=== PATIENT | female | born 1970 | race Caucasian/White ===

== ENCOUNTER 2018-05-23 07:37 | Emergency (ER) | payer MEDICARE ==
[2018-05-23] MEDS ORDERED: IPRATROPIUM-ALBUTEROL 3 ML NEB INHALATION STA (07:40)
[2018-05-23 07:46] VITALS: RESP 18; TEMP 98
[2018-05-23 08:11] LABS: Basophils # (A) 0.1 k/uL (0-0.2); Basophils % (A) 1 %; Eosinophils # (A) 0.4 k/uL (0-0.7); Eosinophils % (A) 3 %; HCT 37.4 % (34.0-46.0); HGB 11.9 gm/dL (11.4-16.0); Hypochromasia Slight; Lymphocytes # (A) 2.3 k/uL (1.0-4.8); Lymphocytes % (A) 21 %; MCH 26.6 pg (25.0-35.0); MCHC 31.9 g/dL (31.0-37.0); MCV 83.3 fL (80.0-100.0); Mean Platelet Volume 5.9; Monocytes # (A) 0.4 k/uL (0-1.0); Monocytes % (A) 4 %; Neutrophils # (A) 7.5 k/uL (1.3-7.7); Neutrophils % (A) 70 %; Platelet Count 650 k/uL (150-450); RBC 4.49 m/uL (3.80-5.40); RDW 15.4 % (11.5-15.5); WBC 10.7 k/uL (3.8-10.6)
[2018-05-23 08:14] LABS: ALT 33 U/L (9-52); AST 22 U/L (14-36); Albumin 3.9 g/dL (3.5-5.0); Alkaline Phosphatase 90 U/L (38-126); Anion Gap 12 mmol/L; Blood Urea Nitrogen 14 mg/dL (7-17); Calcium 9.1 mg/dL (8.4-10.2); Carbon Dioxide 21 mmol/L (22-30); Chloride 106 mmol/L (98-107); Glucose 180 mg/dL (74-99); INR 0.9 (<1.2); Magnesium 1.5 mg/dL (1.6-2.3); Partial Thromboplastin Time 24.1 sec (22.0-30.0); Potassium 4.4 mmol/L (3.5-5.1); Prothrombin Time 9.8 sec (9.0-12.0); Sodium 139 mmol/L (137-145); Total Bilirubin 0.4 mg/dL (0.2-1.3); Total Protein 6.9 g/dL (6.3-8.2)
--- NOTE | 2018-05-23 08:24 | ED ---
Chest Pain HPI - General Chief Complaint: Chest Pain Stated Complaint: Chest Pain Time Seen by Provider: 05/23/18 07:37 Source: patient, EMS, RN notes reviewed Mode of arrival: EMS Limitations: no limitations - History of Present Illness Initial Comments: This is a 47-year-old female who presents by EMS with complaints of chest pain she states it is midsternal and nonradiating. She's had a cough for 2 days she states the pain is now sharp 8/10 severity not associated with any fevers chills nausea vomiting sweats she does complain some shortness of breath. She is a one half pack a day smoker. She has no known history of heart or lung disease. She's had no phlegm production with cough nothing seems to make the pain worse nothing seems make the pain better she states. No trauma. No modifying factors. MD Complaint: chest pain - Related Data Previous Rx's Medication Instructions Recorded Albuterol Inhaler [Ventolin Hfa 2 puff INHALATION Q6HR PRN #1 05/23/18 Inhaler] inhaler Magnesium 200 mg PO DAILY #14 tablet 05/23/18 predniSONE 20 mg PO BID #10 tab 05/23/18 Allergies Allergy/AdvReac Type Severity Reaction Status Date / Time No Known Allergies Allergy Verified 05/23/18 08:05 Review of Systems ROS Statement: Those systems with pertinent positive or pertinent negative responses have been documented in the HPI. ROS Other: All systems not noted in ROS Statement are negative. EKG Findings - EKG Results: EKG: interpreted by ERMD, sinus rhythm (Sinus bradycardia rate of 58. Interval 146 QRS duration 80 QT since QTC 448/439 poor R-wave progression no acute ST-T wave changes) Past Medical History Additional Past Medical History / Comment(s): GERD, Chronic back pain History of Any Multi-Drug Resistant Organisms: None Reported Additional Past Surgical History / Comment(s): Open heart surgery for hole in heart at Smoking Status: Current every day smoker Past Alcohol Use History: None Reported Past Drug Use History: None Reported General Exam - General Exam Comments Initial Comments: This a well-developed well-nourished awake alert oriented 3 female Limitations: no limitations General appearance: alert, in no apparent distress, anxious Head exam: Present: atraumatic, normocephalic, normal inspection Eye exam: Present: normal appearance, PERRL, EOMI. Absent: scleral icterus, conjunctival injection, periorbital swelling ENT exam: Present: normal exam, mucous membranes moist Neck exam: Present: normal inspection. Absent: tenderness, meningismus, lymphadenopathy Respiratory exam: Present: chest wall tenderness (Producible tenderness palpation along the left costal sternal margin no step-off or crepitation.), accessory muscle use, decreased breath sounds. Absent: respiratory distress, wheezes, rales, rhonchi, stridor Cardiovascular Exam: Present: regular rate, normal rhythm, normal heart sounds. Absent: systolic murmur, diastolic murmur, rubs, gallop, clicks GI/Abdominal exam: Present: soft, normal bowel sounds. Absent: distended, tenderness, guarding, rebound, rigid Extremities exam: Present: normal inspection, full ROM, normal capillary refill. Absent: tenderness, pedal edema, joint swelling, calf tenderness Back exam: Present: normal inspection Neurological exam: Present: alert, oriented X3, CN II-XII intact Psychiatric exam: Present: normal affect, normal mood Skin exam: Present: warm, dry, intact, normal color. Absent: rash Course Vital Signs 05/23/18 05/23/18 05/23/18 07:39 09:16 09:22 Temperature 98.0 F Pulse Rate 63 63 60 Respiratory 18 18 Rate Blood Pressure 140/72 140/72 O2 Sat by Pulse 96 100 Oximetry 05/23/18 05/23/18 09:23 09:33 Temperature Pulse Rate 64 64 Respiratory 18 Rate Blood Pressure 161/71 O2 Sat by Pulse 99 Oximetry Procedures - Smoking Cessation Time Spent Discussing Smoking Cessation w/Patient (Minutes): 3 Patient Acknowledges Need for Cessation: Yes Chest Pain MDM - MDM Patient is feeling improved I did discuss the findings with her. She does not have an inhaler at home I did again emphasize that she needs to stop smoking. X -ray was negative for acute findings. The presentation consistent with costochondritis and bronchospasm. She will be placed on appropriate medications. Her magnesium level is 1.5 she'll also be placed on supplements. Disposition Clinical Impression: Costalchondritis, Chest wall syndrome, Bronchospasm, acute, Hypomagnesemia, Smoking Disposition: HOME SELF-CARE Condition: Good Instructions (If sedation given, give patient instructions): Costochondritis ( ED), Bronchospasm (ED), How to Stop Smoking (ED) Prescriptions: Albuterol Inhaler [Ventolin Hfa Inhaler] 2 puff INHALATION Q6HR PRN #1 inhaler PRN Reason: Dyspnea Magnesium 200 mg PO DAILY #14 tablet predniSONE 20 mg PO BID #10 tab Is patient prescribed a controlled substance at d/c from ED?: No Referrals: Guillermo Cerda MD [Primary Care Provider] - 1-2 days
--- NOTE | 2018-05-23 08:33 | XR ---
EXAMINATION TYPE: XR chest 2V DATE OF EXAM: 05/23/2018 COMPARISON: 12/26/2010 INDICATION: Chest pain, cough x2 weeks TECHNIQUE: Frontal and lateral views of the chest are obtained. FINDINGS: The heart size is normal. The pulmonary vasculature is normal. The lungs are clear. Sternotomy wires are in the midline. IMPRESSION: 1. No acute pulmonary process.
[2018-05-23 08:34] LABS: Creatine Kinase 39 U/L (30-135)
[2018-05-23 08:47] LABS: Creatine Kinase MB 0.5 ng/mL (0.0-2.4); Troponin I <0.012 ng/mL (0.000-0.034)
[2018-05-23] MEDS ORDERED: predniSONE 50 MG TAB PO STA (10:22)
[2018-05-23 10:50] VITALS: BP 148/78; PULSE 67
== END 2018-05-23 11:06 | disposition home or self-care (01) ==
LOC: EC 07:37
DX: M94.0 Chondrocostal junction syndrome [Tietze] (principal); J98.01 Acute bronchospasm; E83.42 Hypomagnesemia; I51.7 Cardiomegaly; F17.210 Nicotine dependence, cigarettes, uncomplicated; Z71.6 Tobacco abuse counseling
CPT/HCPCS: 99285; 36415; 94640; 93005; 83880; 80053; 82550; 82553; 83735; 84484; 85025; 85610; 85730; 71046; J7512

== ENCOUNTER 2018-08-23 17:47 | Emergency (ER) | payer MEDICARE ==
--- NOTE | 2018-08-23 18:27 | ED ---
Abdominal Pain HPI - General Chief Complaint: Abdominal Pain Stated Complaint: Abd Pain Source: patient Mode of arrival: ambulatory Limitations: no limitations - History of Present Illness Initial Comments: 47-year-old female presenting today for chief complaint of midabdominal pain. She states the past 2 days she has had midabdominal pain she states is crampy in nature she states she has had some not nausea. She denies radiation of the pain she denies any chest pain or shortness of breath shows a leg swelling. She has any melena or hematochezia. She denies diarrhea. Patient denies constipation she states she took Motrin but this did not help the pain. Patient denies any pattern with the patient denies any alleviating or aggravating factors. Patient has dysuria urgency frequency vaginal bleeding vaginal discharge or lower pelvic pain. Remaining review of systems negative upon arrival patient appears well no signs of acute distress. No signs of protective posturing or discomfort. Patient arrived via EMS. - Related Data Previous Rx's Medication Instructions Recorded Albuterol Inhaler [Ventolin Hfa 2 puff INHALATION Q6HR PRN #1 05/23/18 Inhaler] inhaler Magnesium 200 mg PO DAILY #14 tablet 05/23/18 predniSONE 20 mg PO BID #10 tab 05/23/18 Allergies Allergy/AdvReac Type Severity Reaction Status Date / Time No Known Allergies Allergy Verified 08/23/18 18:07 Review of Systems ROS Statement: Those systems with pertinent positive or pertinent negative responses have been documented in the HPI. ROS Other: All systems not noted in ROS Statement are negative. Past Medical History Past Medical History: No Reported History Additional Past Medical History / Comment(s): GERD, Chronic back pain History of Any Multi-Drug Resistant Organisms: None Reported Additional Past Surgical History / Comment(s): Open heart surgery for hole in heart at Past Psychological History: No Psychological Hx Reported Smoking Status: Current every day smoker Past Alcohol Use History: None Reported Past Drug Use History: None Reported General Exam - General Exam Comments Initial Comments: General: The patient is awake and alert, in no distress, and does not appear acutely ill. Eye: Pupils are equal, round and reactive to light, extra-ocular movements are intact. No nystagmus. There is normal conjunctiva bilaterally. No signs of icterus. Ears, nose, mouth and throat: There are moist mucous membranes and no oral lesions. Neck: The neck is supple, there is no tenderness or JVD. Cardiovascular: There is a regular rate and rhythm. No murmur, rub or gallop is appreciated. Respiratory: Lungs are clear to auscultation, respirations are non-labored, breath sounds are equal. No wheezes, stridor, rales, or rhonchi. Gastrointestinal: Soft, non-distended, tender to mid abdomen mildly without masses or organomegaly noted. There is no rebound or guarding present. No CVA tenderness. Bowel sounds are unremarkable. Musculoskeletal: Normal ROM, no tenderness. Strength 5/5. Sensation intact. Pulses equal bilaterally 2+. Neurological: A&O x 3. CN II-XII intact, There are no obvious motor or sensory deficits. Coordination appears grossly intact. Speech is normal. Skin: Skin is warm and dry and no rashes or lesions are noted. Psychiatric: Cooperative, appropriate mood & affect, normal judgment. Limitations: no limitations Course Vital Signs 08/23/18 08/23/18 08/23/18 17:50 20:13 21:23 Temperature 98.4 F 98.6 F Pulse Rate 68 57 L 63 Respiratory 16 16 18 Rate Blood Pressure 156/92 150/80 141/88 O2 Sat by Pulse 96 97 98 Oximetry - Reevaluation(s) Reevaluation #1: On reevaluation patient's pain is 0 out of 10 and she states she is ready to go she has her belongings collected. 08/23/18 20:45 Medical Decision Making - Medical Decision Making 47-year-old female presenting today for chief complaint of abdominal pain. Patient states is in the mid abdomen near the umbilicus. Patient states it is crampy. This has been constant for the past 24 hours. Patient denies any diarrhea vomiting she states she has had some nausea. She denies any epigastric pain chest pain or shortness of breath. Patient is minimal tenderness on examination CT negative for acute process. Possible movement of patient's tubal ligation clips. Patient has no pelvic pain on examination. Denies any vaginal bleeding or lower abdominal pain. She was provided 2 mg of morphine, she states she complete resolution of symptoms upon reexamination. Patient had things collected and states she was ready to go home. After discussing laboratory studies which included leukocytosis very mild, mild elevated of AST and a nonclean catch urine. Will culture. After discussed the case with him provided Raffi will discharge patient home, with outpatient primary care follow-up. Return parameters were discussed with patient who verbalized understanding. - Lab Data Result diagrams: 08/23/18 18:13 08/23/18 18:13 Lab Results 08/23/18 08/23/18 08/23/18 Range/Units 18:13 18:13 18:13 WBC 13.7 H (3.8-10.6) k/uL RBC 4.83 (3.80-5.40) m/uL Hgb 12.0 (11.4-16.0) gm/dL Hct 38.7 (34.0-46.0) % MCV 80.2 (80.0-100.0) fL MCH 24.9 L (25.0-35.0) pg MCHC 31.0 (31.0-37.0) g/dL RDW 16.6 H (11.5-15.5) % Plt Count 609 H (150-450) k/uL Neutrophils % 69 % Lymphocytes % 22 % Monocytes % 6 % Eosinophils % 2 % Basophils % 1 % Neutrophils # 9.4 H (1.3-7.7) k/uL Lymphocytes # 2.9 (1.0-4.8) k/uL Monocytes # 0.8 (0-1.0) k/uL Eosinophils # 0.3 (0-0.7) k/uL Basophils # 0.1 (0-0.2) k/uL Anisocytosis Slight Microcytosis Slight Sodium 139 (137-145) mmol/L Potassium 4.7 (3.5-5.1) mmol/L Chloride 106 (98-107) mmol/L Carbon Dioxide 24 (22-30) mmol/L Anion Gap 9 mmol/L BUN 14 (7-17) mg/dL Creatinine 0.60 (0.52-1.04) mg/dL Est GFR (CKD-EPI)AfAm >90 (>60 ml/min/1.73 sqM) Est GFR (CKD-EPI)NonAf >90 (>60 ml/min/1.73 sqM) Glucose 102 H (74-99) mg/dL Calcium 9.4 (8.4-10.2) mg/dL Total Bilirubin 0.3 (0.2-1.3) mg/dL AST 50 H (14-36) U/L ALT 41 (9-52) U/L Alkaline Phosphatase 85 (38-126) U/L Total Protein 7.0 (6.3-8.2) g/dL Albumin 3.9 (3.5-5.0) g/dL Amylase 53 (30-110) U/L Lipase 259 (23-300) U/L Urine Color Light Yellow Urine Appearance Cloudy H (Clear) Urine pH 5.5 (5.0-8.0) Ur Specific Whittaker 1.023 (1.001-1.035) Urine Protein 1+ H (Negative) Urine Glucose (UA) Negative (Negative) Urine Ketones Negative (Negative) Urine Blood Negative (Negative) Urine Nitrite Negative (Negative) Urine Bilirubin Negative (Negative) Urine Urobilinogen <2.0 (<2.0) mg/dL Ur Leukocyte Esterase Small H (Negative) Urine RBC <1 (0-5) /hpf Urine WBC 4 (0-5) /hpf Ur Squamous Epith Cells 7 H (0-4) /hpf Urine Mucus Rare H (None) /hpf Disposition Clinical Impression: Abdominal pain Disposition: HOME SELF-CARE Condition: Good Instructions (If sedation given, give patient instructions): Abdominal Pain (ED) Additional Instructions: Please use medication as discussed. Please follow-up with family doctor in the next 2 days of symptoms have not improved. Please follow-up with primary care provider for pulmonary nodule, 4mm. Please return to emergency room if the symptoms increase or worsen or for any other concerns. Is patient prescribed a controlled substance at d/c from ED?: No Referrals: Guillermo Cerda MD [Primary Care Provider] - 1-2 days Time of Disposition: 20:45
--- NOTE | 2018-08-23 19:16 | CT ---
EXAMINATION TYPE: CT abdomen pelvis w con DATE OF EXAM: 08/23/2018 HISTORY: Abdominal pain x [address] DLP: 1470.7mGycm Automated Exposure Control for Dose Reduction was Utilized. CONTRAST: CT scan of the abdomen and pelvis is performed with IV Contrast, patient injected with 100 mL of Isov ue 300. COMPARISON: None. FINDINGS: LUNG BASES: There is a 4 mm solid pulmonary nodule in the right lower lobe on image 3. LIVER/GB: Hepatic parenchyma is diffusely hypoattenuated in comparison to that of the spleen, most co mmonly seen in hepatic steatosis. This finding limits evaluation for hepatic masses. No gross evidenc e of hepatic mass is seen. No intrahepatic biliary ductal dilatation. No cholelithiasis PANCREAS: No significant abnormality is seen. SPLEEN: No significant abnormality is seen. ADRENALS: No significant abnormality is seen. KIDNEYS: There is a lobulated Contour the kidneys that may represent persistent lobulation or s equela of prior multifocal injury. Too small to accurately characterize left renal lesion does not me eting criteria of a simple cyst and measures 9 mm. No hydronephrosis of either kidney. BOWEL: Small hiatal hernia seen. Appendix is air-filled and within normal limits. No dilated large or small bowel is seen. Very small fat filled periumbilical hernia is noted. Few scattered sigmoid dive rticula are present without pericolonic fat stranding. UTERUS/ADNEXA: Surgical clips are seen within the left hemipelvis. These have the appearance of tubal ligation clips although are not contiguous with the fallopian tubes. LYMPH NODES: No greater than 1cm abdominal or pelvic lymph nodes are appreciated. OSSEOUS STRUCTURES: No significant abnormality is seen. IMPRESSION: 1. No CT evidence to correspond to this patient's abdominal pain. Incidentally noted hiatal hernia, h epatic steatosis, and too small to accurately characterize left lower pole renal lesion. 2. Surgical clips lie within the left hemipelvis having the appearance of tubal ligation clips althou gh these are not contiguous with the fallopian tubes and may be displaced. Correlate with prior surgi branden history.
[2018-08-23 19:19] LABS: Anisocytosis Slight; Basophils # (A) 0.1 k/uL (0-0.2); Basophils % (A) 1 %; Eosinophils # (A) 0.3 k/uL (0-0.7); Eosinophils % (A) 2 %; HCT 38.7 % (34.0-46.0); Lymphocytes # (A) 2.9 k/uL (1.0-4.8); Lymphocytes % (A) 22 %; MCH 24.9 pg (25.0-35.0); MCV 80.2 fL (80.0-100.0); Mean Platelet Volume 6.7; Microcytosis Slight; Monocytes # (A) 0.8 k/uL (0-1.0); Monocytes % (A) 6 %; Neutrophils # (A) 9.4 k/uL (1.3-7.7); Neutrophils % (A) 69 %; Platelet Count 609 k/uL (150-450); RBC 4.83 m/uL (3.80-5.40); RDW 16.6 % (11.5-15.5); WBC 13.7 k/uL (3.8-10.6)
[2018-08-23 19:28] LABS: ALT 41 U/L (9-52); AST 50 U/L (14-36); Albumin 3.9 g/dL (3.5-5.0); Alkaline Phosphatase 85 U/L (38-126); Amylase 53 U/L (30-110); Anion Gap 9 mmol/L; Blood Urea Nitrogen 14 mg/dL (7-17); Calcium 9.4 mg/dL (8.4-10.2); Carbon Dioxide 24 mmol/L (22-30); Chloride 106 mmol/L (98-107); Glucose 102 mg/dL (74-99); Lipase 259 U/L (23-300); Potassium 4.7 mmol/L (3.5-5.1); Sodium 139 mmol/L (137-145); Total Bilirubin 0.3 mg/dL (0.2-1.3)
[2018-08-23 19:29] LABS: Appearance,Urine Cloudy (Clear); Bilirubin,Urine Negative (Negative); Blood,Urine Negative (Negative); Color,Urine Light Yellow; Glucose,Urine (UA) Negative (Negative); Ketones,Urine Negative (Negative); Leukocyte Esterase,Urine Small (Negative); Mucus,Urine Rare /hpf; Nitrite,Urine Negative (Negative); PH, Urine 5.5 (5.0-8.0); Protein,Urine 1+ (Negative); RBC,Urine <1 /hpf (0-5); Specific Gravity,Urine 1.023 (1.001-1.035); Squamous Epithelial Cell,Urine 7 /hpf (0-4); Urobilinogen,Urine <2.0 mg/dL (<2.0); WBC,Urine 4 /hpf (0-5)
[2018-08-23] MEDS ORDERED: MORPHINE SULFATE 2 MG/ML SYRINGE IVP STA (20:05)
[2018-08-23 20:15] VITALS: TEMP 98.6
[2018-08-23 21:24] VITALS: BP 141/88; PULSE 63; RESP 18
== END 2018-08-23 21:25 | disposition home or self-care (01) ==
LOC: EC 17:47
DX: R10.9 Unspecified abdominal pain (principal); R30.0 Dysuria; R35.0 Frequency of micturition; F17.200 Nicotine dependence, unspecified, uncomplicated
CPT/HCPCS: 36415; 80053; 82150; 83690; 85025; 81001; 74177; 99284; 96374; J2270; Q9967

== ENCOUNTER 2018-09-16 01:52 | Emergency (ER) | payer MEDICARE ==
[2018-09-16 01:59] VITALS: RESP 18
[2018-09-16] MEDS ORDERED: SODIUM CHLORIDE 0.9% 1,000 ML IV STA (02:25)
--- NOTE | 2018-09-16 02:25 | ED ---
Chest Pain HPI - General Chief Complaint: Chest Pain Stated Complaint: Chest pain Time Seen by Provider: 09/16/18 02:24 Source: patient, EMS Mode of arrival: EMS Limitations: no limitations - History of Present Illness Initial Comments: Dayna is a cognitively delayed 48-year-old female who presents to the emergency department today for evaluation of chest pain for 3 days duration. Patient reports that when she lays on her left or right side she has tenderness around her sternum. She reports that if she lays flat on her back she does not have any symptoms. Patient reports that because of that she's not been able to sleep well and she feels that she's been sleep deprived. Patient reports that tonight she couldn't sleep so she contacted EMS for transport to the hospital. Patient denies any exertional chest pain, palpitations, shortness of breath. Patient denies any cardiac history. She reports that the discomfort has been constant for 3 days but is worse with certain positions or palpation. She denies any injury trauma or heavy lifting. She reports that she doesn't work and she spends all day watching TV. - Related Data Previous Rx's Medication Instructions Recorded Albuterol Inhaler [Ventolin Hfa 2 puff INHALATION Q6HR PRN #1 05/23/18 Inhaler] inhaler Magnesium 200 mg PO DAILY #14 tablet 05/23/18 predniSONE 20 mg PO BID #10 tab 05/23/18 Allergies Allergy/AdvReac Type Severity Reaction Status Date / Time No Known Allergies Allergy Verified 08/23/18 18:07 Review of Systems ROS Statement: Those systems with pertinent positive or pertinent negative responses have been documented in the HPI. ROS Other: All systems not noted in ROS Statement are negative. EKG Findings - EKG Comments: EKG Findings:: EKG was obtained at 2:01 AM for evaluation of chest pain, EKG with a rate of 63 rhythm sinus tach normal axis there are normal intervals, MT 162, QRS 80, QTC is 421 there are no acute ST elevations or depressions there is no evidence of acute infarction or ischemia. Past Medical History Past Medical History: No Reported History Additional Past Medical History / Comment(s): GERD, Chronic back pain History of Any Multi-Drug Resistant Organisms: None Reported Additional Past Surgical History / Comment(s): Open heart surgery for hole in heart at Past Psychological History: No Psychological Hx Reported Smoking Status: Former smoker Past Alcohol Use History: None Reported Past Drug Use History: None Reported General Exam - General Exam Comments Initial Comments: Physical Exam GENERAL: Patient is well-developed and well-nourished. Patient is nontoxic and well- hydrated and is in no distress. Morbidly obese HENT: Normocephalic, Atraumatic. EYES: PERRL, EOMI PULMONARY: Unlabored respirations. No audible rales rhonchi or wheezing was noted. CARDIOVASCULAR: There is a regular rate and rhythm without any murmurs gallops or rubs. Tenderness to palpation in the costochondral junction ABDOMEN: Soft and nontender with normal bowel sounds. SKIN: Skin is clear with no lesions or rashes and otherwise unremarkable. : Deferred NEUROLOGIC: Patient is alert and oriented x3. Moving all extremities spontaneously MUSCULOSKELETAL: Normal extremities with adequate strength and full range of motion. No lower extremity swelling or edema. No calf tenderness. PSYCHIATRIC: Childlike demeanor Limitations: no limitations Course Vital Signs 09/16/18 01:54 Temperature 99.4 F Pulse Rate 88 Respiratory 18 Rate Blood Pressure 147/83 O2 Sat by Pulse 98 Oximetry Chest Pain [facility] The patient was seen and evaluated, history is obtained from the patient and EMS This is a 48-year-old female who presents today for evaluation of musculoskeletal chest pain has been keeping her from sleep. Patient states she usually sleeps on her side so she has discomfort any time she sleeps on either side so she's been having asleep in her back which is uncomfortable for her. She reports overnight she hasn't been able to sleep properly tonight she couldn't sleep so she came to the ER for evaluation. EKG is nonischemic, symptoms of been persistent for 3 days and troponin is negative. This time I felt comfortable with the plan for discharge home. Patient has no tachycardia, shortness of breath or hypoxia. She is ambulatory with no recent immobilization and no concern for DVT or PE. Disposition Clinical Impression: Musculoskeletal chest pain Disposition: HOME SELF-CARE Condition: Stable Instructions (If sedation given, give patient instructions): Costochondritis (ED) Is patient prescribed a controlled substance at d/c from ED?: No Referrals: Guillermo Cerda MD [Primary Care Provider] - 1-2 days
[2018-09-16 02:28] LABS: Anisocytosis Slight; Basophils % (A) 0 %; Eosinophils # (A) 0.3 k/uL (0-0.7); Eosinophils % (A) 2 %; HCT 35.5 % (34.0-46.0); HGB 11.1 gm/dL (11.4-16.0); Hypochromasia Slight; Lymphocytes # (A) 2.8 k/uL (1.0-4.8); Lymphocytes % (A) 22 %; MCH 24.6 pg (25.0-35.0); MCHC 31.2 g/dL (31.0-37.0); MCV 78.7 fL (80.0-100.0); Mean Platelet Volume 6.9; Microcytosis Slight; Monocytes # (A) 0.5 k/uL (0-1.0); Monocytes % (A) 4 %; Neutrophils % (A) 71 %; Platelet Count 984 k/uL (150-450); RBC 4.51 m/uL (3.80-5.40); RDW 16.7 % (11.5-15.5); WBC 12.7 k/uL (3.8-10.6)
--- NOTE | 2018-09-16 02:34 | XR ---
EXAM: XR Chest, 2 Views CLINICAL HISTORY: Chest Pain TECHNIQUE: Frontal and lateral views of the chest. COMPARISON: 05/23/2018 FINDINGS: Lungs: Unremarkable. No consolidation. Pleural space: Unremarkable. No pneumothorax. Heart: Unremarkable. No cardiomegaly. Mediastinum: Unremarkable. Bones/joints: No acute osseous abnormality. IMPRESSION: No acute cardiopulmonary process.
[2018-09-16 02:38] LABS: ALT 32 U/L (9-52); AST 43 U/L (14-36); African American GFR (CKD) >90 (>60 ml/min/1.73 sqM); Albumin 3.6 g/dL (3.5-5.0); Alkaline Phosphatase 121 U/L (38-126); Anion Gap 9 mmol/L; Blood Urea Nitrogen 17 mg/dL (7-17); Carbon Dioxide 28 mmol/L (22-30); Chloride 102 mmol/L (98-107); Glucose 161 mg/dL (74-99); Magnesium 1.8 mg/dL (1.6-2.3); Potassium 4.8 mmol/L (3.5-5.1); Sodium 139 mmol/L (137-145); Total Bilirubin 0.3 mg/dL (0.2-1.3); Total Protein 7.2 g/dL (6.3-8.2)
[2018-09-16 02:55] LABS: Partial Thromboplastin Time 25.1 sec (22.0-30.0); Prothrombin Time 10.3 sec (9.0-12.0)
[2018-09-16 04:06] VITALS: BP 139/70; PULSE 60; TEMP 98.8
== END 2018-09-16 04:06 | disposition home or self-care (01) ==
LOC: EC 01:52
DX: R07.9 Chest pain, unspecified (principal); G31.84 Mild cognitive impairment of uncertain or unknown etiology; Z87.891 Personal history of nicotine dependence; Z98.890 Other specified postprocedural states; Z72.820 Sleep deprivation
CPT/HCPCS: 36415; 71046; 80053; 83735; 84484; 85025; 85610; 85730; 93005; 96360; 99285

== ENCOUNTER 2018-10-14 12:31 | Emergency (ER) | payer MEDICARE ==
[2018-10-14] MEDS ORDERED: SODIUM CHLORIDE 0.9% 1,000 ML IV STA ×2 (12:36→13:35)
[2018-10-14 12:37] VITALS: RESP 18; TEMP 98.6
--- NOTE | 2018-10-14 12:41 | ED ---
Weakness HPI - General Chief complaint: Dizziness Stated complaint: Dizziness Time Seen by Provider: 10/14/18 12:35 Source: patient, EMS, RN notes reviewed, old records reviewed Mode of arrival: EMS Limitations: no limitations - History of Present Illness Initial comments: This is a 48 showed female the ER for evaluation. Patient has a for evaluation of weakness weakness and dizziness 5 weeks. Patient is recent travel history no sick contacts, no chest pain shortness breath or abdominal pain recent change in medications. No travel history. Denies drugs or alcohol MD Complaint: generalized weakness -: days(s) Location: generalized Severity: moderate Severity scale (1-10): 3 Quality: aching Consistency: constant Improves with: none Worsens with: none Context: new medication Associated Symptoms: denies other symptoms - Related Data Home Medications Medication Instructions Recorded Confirmed Atorvastatin Calcium [Lipitor] 40 mg PO HS 10/14/18 10/14/18 Ergocalciferol (Vitamin D2) 50,000 unit PO Q28H 10/14/18 10/14/18 [Vitamin D2] Esomeprazole Magnesium [NexIUM] 40 mg PO DAILY 10/14/18 10/14/18 Ibuprofen [Motrin] 800 mg PO TID PRN 10/14/18 10/14/18 Allergies Allergy/AdvReac Type Severity Reaction Status Date / Time No Known Allergies Allergy Verified 10/14/18 12:56 Review of Systems ROS Statement: Those systems with pertinent positive or pertinent negative responses have been documented in the HPI. ROS Other: All systems not noted in ROS Statement are negative. Past Medical History Past Medical History: No Reported History Additional Past Medical History / Comment(s): GERD, Chronic back pain History of Any Multi-Drug Resistant Organisms: None Reported Past Surgical History: Tubal Ligation Additional Past Surgical History / Comment(s): Open heart surgery for hole in heart at Past Psychological History: No Psychological Hx Reported Smoking Status: Current every day smoker Past Alcohol Use History: None Reported Past Drug Use History: None Reported General Exam Limitations: no limitations General appearance: alert, in no apparent distress Head exam: Present: atraumatic, normocephalic, normal inspection Eye exam: Present: normal appearance, PERRL, EOMI. Absent: scleral icterus, conjunctival injection, periorbital swelling ENT exam: Present: normal exam, mucous membranes moist Neck exam: Present: normal inspection. Absent: tenderness, meningismus, lymphadenopathy Respiratory exam: Present: normal lung sounds bilaterally. Absent: respiratory distress, wheezes, rales, rhonchi, stridor Cardiovascular Exam: Present: regular rate, normal rhythm, normal heart sounds. Absent: systolic murmur, diastolic murmur, rubs, gallop, clicks GI/Abdominal exam: Present: soft, normal bowel sounds. Absent: distended, tenderness, guarding, rebound, rigid Extremities exam: Present: normal inspection, full ROM, normal capillary refill. Absent: tenderness, pedal edema, joint swelling, calf tenderness Back exam: Present: normal inspection Neurological exam: Present: alert, oriented X3, CN II-XII intact Psychiatric exam: Present: normal affect, normal mood Skin exam: Present: warm, dry, intact, normal color. Absent: rash Course Vital Signs 10/14/18 10/14/18 10/14/18 12:32 12:48 14:13 Temperature 98.6 F Pulse Rate 79 78 Pulse Rate [ 87 Sitting] Pulse Rate [ 90 Standing] Pulse Rate [ 81 Supine] Respiratory 18 18 Rate Blood Pressure 149/97 138/76 Blood Pressure 138/93 [Sitting] Blood Pressure 134/90 [Standing] Blood Pressure 149/85 [Supine] O2 Sat by Pulse 96 100 Oximetry - Reevaluation(s) Reevaluation #1: 10/14/18 12:41 Medical record is reviewed EKG Findings - EKG Comments: EKG Findings:: EKG shows sinus rhythm rate of 80, GA 132, QRS 76, QTc 445 Medical Decision Making - Medical Decision Making 48 female the ER for evaluation. Patient resents today for evaluation of not feeling well for about 5 days. Patient does have dehydration with urinary tract infection. We'll treat her with antibiotics and outpatient basis and encouraged increased oral intake - Lab Data Result diagrams: 10/14/18 12:41 10/14/18 12:41 Lab Results 10/14/18 10/14/18 10/14/18 Range/Units 12:41 12:41 12:41 WBC 11.1 H (3.8-10.6) k/uL RBC 5.12 (3.80-5.40) m/uL Hgb 12.6 (11.4-16.0) gm/dL Hct 40.5 (34.0-46.0) % MCV 79.2 L (80.0-100.0) fL MCH 24.6 L (25.0-35.0) pg MCHC 31.1 (31.0-37.0) g/dL RDW 17.4 H (11.5-15.5) % Plt Count 613 H (150-450) k/uL Neutrophils % 70 % Lymphocytes % 22 % Monocytes % 4 % Eosinophils % 2 % Basophils % 1 % Neutrophils # 7.8 H (1.3-7.7) k/uL Lymphocytes # 2.4 (1.0-4.8) k/uL Monocytes # 0.4 (0-1.0) k/uL Eosinophils # 0.2 (0-0.7) k/uL Basophils # 0.1 (0-0.2) k/uL Anisocytosis Slight Microcytosis Slight PT (9.0-12.0) sec INR (<1.2) APTT (22.0-30.0) sec Sodium 140 (137-145) mmol/L Potassium 4.4 (3.5-5.1) mmol/L Chloride 102 (98-107) mmol/L Carbon Dioxide 21 L (22-30) mmol/L Anion Gap 17 mmol/L BUN 29 H (7-17) mg/dL Creatinine 0.85 (0.52-1.04) mg/dL Est GFR (CKD-EPI)AfAm >90 (>60 ml/min/1.73 sqM) Est GFR (CKD-EPI)NonAf 83 (>60 ml/min/1.73 sqM) Glucose 193 H (74-99) mg/dL Plasma Lactic Acid Travon 3.6 H* (0.7-2.0) mmol/L Calcium 9.7 (8.4-10.2) mg/dL Phosphorus 4.6 H (2.5-4.5) mg/dL Magnesium 1.6 (1.6-2.3) mg/dL Total Bilirubin 0.5 (0.2-1.3) mg/dL AST 35 (14-36) U/L ALT 30 (9-52) U/L Alkaline Phosphatase 105 (38-126) U/L Creatine Kinase 39 (30-135) U/L Troponin I (0.000-0.034) ng/mL Total Protein 8.1 (6.3-8.2) g/dL Albumin 4.4 (3.5-5.0) g/dL Urine Color Urine Appearance (Clear) Urine pH (5.0-8.0) Ur Specific [place] (1.001-1.035) Urine Protein (Negative) Urine Glucose (UA) (Negative) Urine Ketones (Negative) Urine Blood (Negative) Urine Nitrite (Negative) Urine Bilirubin (Negative) Urine Urobilinogen (<2.0) mg/dL Ur Leukocyte Esterase (Negative) Urine RBC (0-5) /hpf Urine WBC (0-5) /hpf Urine WBC Clumps (None) /hpf Ur Squamous Epith Cells (0-4) /hpf Urine Bacteria (None) /hpf Hyaline Casts (0-2) /lpf Urine Mucus (None) /hpf 10/14/18 10/14/18 10/14/18 Range/Units 12:41 12:41 12:41 WBC (3.8-10.6) k/uL RBC (3.80-5.40) m/uL Hgb (11.4-16.0) gm/dL Hct (34.0-46.0) % MCV (80.0-100.0) fL MCH (25.0-35.0) pg MCHC (31.0-37.0) g/dL RDW (11.5-15.5) % Plt Count (150-450) k/uL Neutrophils % % Lymphocytes % % Monocytes % % Eosinophils % % Basophils % % Neutrophils # (1.3-7.7) k/uL Lymphocytes # (1.0-4.8) k/uL Monocytes # (0-1.0) k/uL Eosinophils # (0-0.7) k/uL Basophils # (0-0.2) k/uL Anisocytosis Microcytosis PT 9.9 (9.0-12.0) sec INR 0.9 (<1.2) APTT 23.7 (22.0-30.0) sec Sodium (137-145) mmol/L Potassium (3.5-5.1) mmol/L Chloride (98-107) mmol/L Carbon Dioxide (22-30) mmol/L Anion Gap mmol/L BUN (7-17) mg/dL Creatinine (0.52-1.04) mg/dL Est GFR (CKD-EPI)AfAm (>60 ml/min/1.73 sqM) Est GFR (CKD-EPI)NonAf (>60 ml/min/1.73 sqM) Glucose (74-99) mg/dL Plasma Lactic Acid [place]on (0.7-2.0) mmol/L Calcium (8.4-10.2) mg/dL Phosphorus (2.5-4.5) mg/dL Magnesium (1.6-2.3) mg/dL Total Bilirubin (0.2-1.3) mg/dL AST (14-36) U/L ALT (9-52) U/L Alkaline Phosphatase (38-126) U/L Creatine Kinase (30-135) U/L Troponin I <0.012 (0.000-0.034) ng/mL Total Protein (6.3-8.2) g/dL Albumin (3.5-5.0) g/dL Urine Color Yellow Urine Appearance Clear (Clear) Urine pH 5.5 (5.0-8.0) Ur Specific [place] 1.015 (1.001-1.035) Urine Protein 1+ H (Negative) Urine Glucose (UA) Negative (Negative) Urine Ketones Negative (Negative) Urine Blood Negative (Negative) Urine Nitrite Negative (Negative) Urine Bilirubin Negative (Negative) Urine Urobilinogen <2.0 (<2.0) mg/dL Ur Leukocyte Esterase Trace H (Negative) Urine RBC 2 (0-5) /hpf Urine WBC 11 H (0-5) /hpf Urine WBC Clumps Rare H (None) /hpf Ur Squamous Epith Cells 5 H (0-4) /hpf Urine Bacteria Moderate H (None) /hpf Hyaline Casts 9 H (0-2) /lpf Urine Mucus Rare H (None) /hpf Disposition Clinical Impression: UTI (urinary tract infection), Dehydration Disposition: HOME SELF-CARE Condition: Good Instructions (If sedation given, give patient instructions): Urinary Tract Infection in Women (ED) Is patient prescribed a controlled substance at d/c from ED?: No Referrals: Guillermo Cerda MD [Primary Care Provider] - 1-2 days
[2018-10-14 12:58] LABS: Anisocytosis Slight; Basophils # (A) 0.1 k/uL (0-0.2); Basophils % (A) 1 %; Eosinophils # (A) 0.2 k/uL (0-0.7); Eosinophils % (A) 2 %; HCT 40.5 % (34.0-46.0); HGB 12.6 gm/dL (11.4-16.0); Lymphocytes # (A) 2.4 k/uL (1.0-4.8); Lymphocytes % (A) 22 %; MCH 24.6 pg (25.0-35.0); MCHC 31.1 g/dL (31.0-37.0); MCV 79.2 fL (80.0-100.0); Mean Platelet Volume 6.2; Microcytosis Slight; Monocytes # (A) 0.4 k/uL (0-1.0); Monocytes % (A) 4 %; Neutrophils # (A) 7.8 k/uL (1.3-7.7); Neutrophils % (A) 70 %; Platelet Count 613 k/uL (150-450); RBC 5.12 m/uL (3.80-5.40); RDW 17.4 % (11.5-15.5); WBC 11.1 k/uL (3.8-10.6)
[2018-10-14 13:08] LABS: Appearance,Urine Clear (Clear); Bacteria,Urine Moderate /hpf; Bilirubin,Urine Negative (Negative); Blood,Urine Negative (Negative); Color,Urine Yellow; Glucose,Urine (UA) Negative (Negative); Hyaline Casts,Urine 9 /lpf (0-2); Ketones,Urine Negative (Negative); Leukocyte Esterase,Urine Trace (Negative); Mucus,Urine Rare /hpf; Nitrite,Urine Negative (Negative); PH, Urine 5.5 (5.0-8.0); Protein,Urine 1+ (Negative); RBC,Urine 2 /hpf (0-5); Specific Gravity,Urine 1.015 (1.001-1.035); Squamous Epithelial Cell,Urine 5 /hpf (0-4); Urobilinogen,Urine <2.0 mg/dL (<2.0); WBC,Urine 11 /hpf (0-5)
[2018-10-14 13:10] LABS: ALT 30 U/L (9-52); AST 35 U/L (14-36); African American GFR (CKD) >90 (>60 ml/min/1.73 sqM); Albumin 4.4 g/dL (3.5-5.0); Alkaline Phosphatase 105 U/L (38-126); Anion Gap 17 mmol/L; Blood Urea Nitrogen 29 mg/dL (7-17); Calcium 9.7 mg/dL (8.4-10.2); Carbon Dioxide 21 mmol/L (22-30); Chloride 102 mmol/L (98-107); Creatine Kinase 39 U/L (30-135); Glucose 193 mg/dL (74-99); Magnesium 1.6 mg/dL (1.6-2.3); Phosphorus 4.6 mg/dL (2.5-4.5); Potassium 4.4 mmol/L (3.5-5.1); Sodium 140 mmol/L (137-145); Total Bilirubin 0.5 mg/dL (0.2-1.3); Total Protein 8.1 g/dL (6.3-8.2)
[2018-10-14 13:18] LABS: INR 0.9 (<1.2); Partial Thromboplastin Time 23.7 sec (22.0-30.0); Prothrombin Time 9.9 sec (9.0-12.0)
[2018-10-14 14:14] VITALS: BP 138/76; PULSE 78
== END 2018-10-14 14:52 | disposition home or self-care (01) ==
LOC: EC 12:31
DX: N39.0 Urinary tract infection, site not specified (principal); E86.0 Dehydration; R53.1 Weakness; K21.9 Gastro-esophageal reflux disease without esophagitis; F17.200 Nicotine dependence, unspecified, uncomplicated; Z79.899 Other long term (current) drug therapy
CPT/HCPCS: 99285 ×2; 96365 ×2; 96361 ×2; 36415; 93005; 80053; 82550; 83605; 83735; 84100; 84484; 85025; 85610; 85730; 81001; 87086; J0696

== ENCOUNTER 2018-10-23 12:13 | Observation (INO) | payer MEDICARE ==
[2018-10-23] MEDS ORDERED: KETOROLAC 30 MG/ML 1 ML VIAL IVP STA (12:20)
[2018-10-23] MEDS ORDERED: PANTOPRAZOLE 40 MG/10 ML VIAL IVP STA (12:20)
[2018-10-23] MEDS ORDERED: SODIUM CHLORIDE 0.9% 1,000 ML IV STA ×2 (12:20→14:27)
[2018-10-23] MEDS ORDERED: ONDANSETRON 4 MG/2 ML VIAL IVP STA (12:20)
[2018-10-23 12:48] LABS: Appearance,Urine Clear (Clear); Bilirubin,Urine Negative (Negative); Blood,Urine Negative (Negative); Color,Urine Yellow; Glucose,Urine (UA) Negative (Negative); Hyaline Casts,Urine 1 /lpf (0-2); Ketones,Urine Negative (Negative); Leukocyte Esterase,Urine Negative (Negative); Mucus,Urine Rare /hpf; Nitrite,Urine Negative (Negative); PH, Urine 5.5 (5.0-8.0); Protein,Urine 1+ (Negative); RBC,Urine 1 /hpf (0-5); Specific Gravity,Urine 1.016 (1.001-1.035); Squamous Epithelial Cell,Urine 5 /hpf (0-4); Urobilinogen,Urine <2.0 mg/dL (<2.0); WBC,Urine 2 /hpf (0-5)
[2018-10-23 12:55] LABS: Anisocytosis Slight; Basophils % (A) 1 %; Eosinophils # (A) 0.2 k/uL (0-0.7); Eosinophils % (A) 3 %; HCT 37.4 % (34.0-46.0); HGB 11.7 gm/dL (11.4-16.0); Lymphocytes # (A) 1.9 k/uL (1.0-4.8); Lymphocytes % (A) 27 %; MCHC 31.3 g/dL (31.0-37.0); MCV 79.8 fL (80.0-100.0); Microcytosis Slight; Monocytes # (A) 0.3 k/uL (0-1.0); Monocytes % (A) 5 %; Neutrophils # (A) 4.3 k/uL (1.3-7.7); Neutrophils % (A) 62 %; Platelet Count 513 k/uL (150-450); RBC 4.69 m/uL (3.80-5.40); RDW 17.8 % (11.5-15.5); WBC 6.9 k/uL (3.8-10.6)
[2018-10-23 13:00] LABS: ALT 62 U/L (9-52); AST 56 U/L (14-36); African American GFR (CKD) >90 (>60 ml/min/1.73 sqM); Albumin 4.2 g/dL (3.5-5.0); Alkaline Phosphatase 93 U/L (38-126); Amylase 60 U/L (30-110); Anion Gap 12 mmol/L; Blood Urea Nitrogen 12 mg/dL (7-17); Calcium 9.2 mg/dL (8.4-10.2); Carbon Dioxide 23 mmol/L (22-30); Chloride 104 mmol/L (98-107); Creatine Kinase 41 U/L (30-135); Glucose 242 mg/dL (74-99); Non-African American GFR(CKD) >90 (>60 ml/min/1.73 sqM); Sodium 139 mmol/L (137-145); Total Bilirubin 0.4 mg/dL (0.2-1.3); Total Protein 7.3 g/dL (6.3-8.2)
--- NOTE | 2018-10-23 13:13 | XR ---
EXAMINATION TYPE: XR abdomen acute w cxr DATE OF EXAM: 10/23/2018 COMPARISON: Prior chest x-ray 09/16/2018, CT abdomen pelvis 08/23/2018 HISTORY: Abdominal pain TECHNIQUE: Supine, upright, and left side down lateral decubitus and frontal chest views of the abdo men are obtained. FINDINGS: Patient is post median sternotomy. There is no evidence for pneumoperitoneum. The bowel gas pattern is unremarkable as there is air throughout nondilated small and large bowel. No sizeable air fluid levels. No mass effects are seen. No unusual calcifications. Sloping tubal ligation clips are present within the pelvis. IMPRESSION: Unremarkable study
[2018-10-23] MEDS ORDERED: MORPHINE SULFATE 4 MG/ML SYRINGE IVP STA (13:18)
--- NOTE | 2018-10-23 13:35 | ED ---
Abdominal Pain HPI - General Chief Complaint: Nausea/Vomiting/Diarrhea Stated Complaint: dizziness/abdominal pain Time Seen by Provider: 10/23/18 12:16 Source: patient, EMS, RN notes reviewed, old records reviewed Mode of arrival: EMS Limitations: no limitations - History of Present Illness Initial Comments: This is a 48-year-old female the ER for evaluation nausea and not feeling well abdominal pain complaints of dehydration. Patient hospital about a similar complaints. Patient states abdominal pain is progressed, she took antibiotics for UTI and she feels like that is now improved. Fevers. No recent travel history or sick contacts does have positive nausea no vomiting. No significant medical history or surgical history or no significant history of the same. She had she does admit to tubal ligation upon further questioning MD Complaint: abdominal pain -: days(s) Location: epigastric, suprapubic Radiation: epigastric Migration to: bilateral flank Severity: moderate Severity scale (1-10): 5 Quality: cramping, stabbing Consistency: intermittent Improves With: nothing Worsens With: eating Associated Symptoms: nausea, vomiting - Related Data Home Medications Medication Instructions Recorded Confirmed Atorvastatin Calcium [Lipitor] 40 mg PO HS 10/14/18 10/23/18 Ergocalciferol (Vitamin D2) 50,000 unit PO Q28H 10/14/18 10/23/18 [Vitamin D2] Esomeprazole Magnesium [NexIUM] 40 mg PO DAILY 10/14/18 10/23/18 Ibuprofen [Motrin] 800 mg PO TID PRN 10/14/18 10/23/18 traMADol HCL [Ultram] 50 mg PO BID PRN 10/23/18 10/23/18 Allergies Allergy/AdvReac Type Severity Reaction Status Date / Time No Known Allergies Allergy Verified 10/14/18 12:56 Review of Systems ROS Statement: Those systems with pertinent positive or pertinent negative responses have been documented in the HPI. ROS Other: All systems not noted in ROS Statement are negative. Past Medical History Past Medical History: No Reported History Additional Past Medical History / Comment(s): GERD, Chronic back pain History of Any Multi-Drug Resistant Organisms: None Reported Past Surgical History: Tubal Ligation Additional Past Surgical History / Comment(s): Open heart surgery for hole in heart at Past Psychological History: No Psychological Hx Reported Smoking Status: Current every day smoker Past Alcohol Use History: None Reported Past Drug Use History: None Reported General Exam Limitations: no limitations General appearance: alert, in no apparent distress Head exam: Present: atraumatic, normocephalic, normal inspection Eye exam: Present: normal appearance, PERRL, EOMI. Absent: scleral icterus, conjunctival injection, periorbital swelling ENT exam: Present: normal exam, mucous membranes moist Neck exam: Present: normal inspection. Absent: tenderness, meningismus, lymphadenopathy Respiratory exam: Present: normal lung sounds bilaterally. Absent: respiratory distress, wheezes, rales, rhonchi, stridor Cardiovascular Exam: Present: regular rate, normal rhythm, normal heart sounds. Absent: systolic murmur, diastolic murmur, rubs, gallop, clicks GI/Abdominal exam: Present: soft, tenderness (Epigastric tenderness), normal bowel sounds. Absent: distended, guarding, rebound, rigid Extremities exam: Present: normal inspection, full ROM, normal capillary refill. Absent: tenderness, pedal edema, joint swelling, calf tenderness Back exam: Present: normal inspection Neurological exam: Present: alert, oriented X3, CN II-XII intact Psychiatric exam: Present: normal affect, normal mood Skin exam: Present: warm, dry, intact, normal color. Absent: rash Course Vital Signs 10/23/18 10/23/18 12:31 13:50 Temperature 98.1 F Pulse Rate 61 65 Respiratory 18 16 Rate Blood Pressure 130/65 129/62 O2 Sat by Pulse 96 95 Oximetry - Reevaluation(s) Reevaluation #1: 10/23/18 14:29 Medical record and prior ER visit is reviewed Reevaluation #2: 10/23/18 14:29 feeling better with pain control and hydration Medical Decision Making - Medical Decision Making 48 female the ER for evaluation of bowel pain positive pancreatitis severe dehydration lactic acidosis will admit for hydration, nothing by mouth status - Lab Data Result diagrams: 10/23/18 12:34 10/23/18 12:34 Lab Results 10/23/18 10/23/18 10/23/18 Range/Units 12:34 12:34 12:34 WBC 6.9 (3.8-10.6) k/uL RBC 4.69 (3.80-5.40) m/uL Hgb 11.7 (11.4-16.0) gm/dL Hct 37.4 (34.0-46.0) % MCV 79.8 L (80.0-100.0) fL MCH 25.0 (25.0-35.0) pg MCHC 31.3 (31.0-37.0) g/dL RDW 17.8 H (11.5-15.5) % Plt Count 513 H (150-450) k/uL Neutrophils % 62 % Lymphocytes % 27 % Monocytes % 5 % Eosinophils % 3 % Basophils % 1 % Neutrophils # 4.3 (1.3-7.7) k/uL Lymphocytes # 1.9 (1.0-4.8) k/uL Monocytes # 0.3 (0-1.0) k/uL Eosinophils # 0.2 (0-0.7) k/uL Basophils # 0.0 (0-0.2) k/uL Anisocytosis Slight Microcytosis Slight Sodium 139 (137-145) mmol/L Potassium 4.0 (3.5-5.1) mmol/L Chloride 104 (98-107) mmol/L Carbon Dioxide 23 (22-30) mmol/L Anion Gap 12 mmol/L BUN 12 (7-17) mg/dL Creatinine 0.60 (0.52-1.04) mg/dL Est GFR (CKD-EPI)AfAm >90 (>60 ml/min/1.73 sqM) Est GFR (CKD-EPI)NonAf >90 (>60 ml/min/1.73 sqM) Glucose 242 H (74-99) mg/dL Plasma Lactic Acid Travon 4.0 H* (0.7-2.0) mmol/L Calcium 9.2 (8.4-10.2) mg/dL Total Bilirubin 0.4 (0.2-1.3) mg/dL AST 56 H (14-36) U/L ALT 62 H (9-52) U/L Alkaline Phosphatase 93 (38-126) U/L Creatine Kinase 41 (30-135) U/L Total Protein 7.3 (6.3-8.2) g/dL Albumin 4.2 (3.5-5.0) g/dL Amylase 60 (30-110) U/L Lipase 739 H (23-300) U/L Urine Color Urine Appearance (Clear) Urine pH (5.0-8.0) Ur Specific [place] (1.001-1.035) Urine Protein (Negative) Urine Glucose (UA) (Negative) Urine Ketones (Negative) Urine Blood (Negative) Urine Nitrite (Negative) Urine Bilirubin (Negative) Urine Urobilinogen (<2.0) mg/dL Ur Leukocyte Esterase (Negative) Urine RBC (0-5) /hpf Urine WBC (0-5) /hpf Ur Squamous Epith Cells (0-4) /hpf Hyaline Casts (0-2) /lpf Urine Mucus (None) /hpf 10/23/18 Range/Units 12:36 WBC (3.8-10.6) k/uL RBC (3.80-5.40) m/uL Hgb (11.4-16.0) gm/dL Hct (34.0-46.0) % MCV (80.0-100.0) fL MCH (25.0-35.0) pg MCHC (31.0-37.0) g/dL RDW (11.5-15.5) % Plt Count (150-450) k/uL Neutrophils % % Lymphocytes % % Monocytes % % Eosinophils % % Basophils % % Neutrophils # (1.3-7.7) k/uL Lymphocytes # (1.0-4.8) k/uL Monocytes # (0-1.0) k/uL Eosinophils # (0-0.7) k/uL Basophils # (0-0.2) k/uL Anisocytosis Microcytosis Sodium (137-145) mmol/L Potassium (3.5-5.1) mmol/L Chloride (98-107) mmol/L Carbon Dioxide (22-30) mmol/L Anion Gap mmol/L BUN (7-17) mg/dL Creatinine (0.52-1.04) mg/dL Est GFR (CKD-EPI)AfAm (>60 ml/min/1.73 sqM) Est GFR (CKD-EPI)NonAf (>60 ml/min/1.73 sqM) Glucose (74-99) mg/dL Plasma Lactic Acid [place]on (0.7-2.0) mmol/L Calcium (8.4-10.2) mg/dL Total Bilirubin (0.2-1.3) mg/dL AST (14-36) U/L ALT (9-52) U/L Alkaline Phosphatase (38-126) U/L Creatine Kinase (30-135) U/L Total Protein (6.3-8.2) g/dL Albumin (3.5-5.0) g/dL Amylase (30-110) U/L Lipase (23-300) U/L Urine Color Yellow Urine Appearance Clear (Clear) Urine pH 5.5 (5.0-8.0) Ur Specific [place] 1.016 (1.001-1.035) Urine Protein 1+ H (Negative) Urine Glucose (UA) Negative (Negative) Urine Ketones Negative (Negative) Urine Blood Negative (Negative) Urine Nitrite Negative (Negative) Urine Bilirubin Negative (Negative) Urine Urobilinogen <2.0 (<2.0) mg/dL Ur Leukocyte Esterase Negative (Negative) Urine RBC 1 (0-5) /hpf Urine WBC 2 (0-5) /hpf Ur Squamous Epith Cells 5 H (0-4) /hpf Hyaline Casts 1 (0-2) /lpf Urine Mucus Rare H (None) /hpf - Radiology Data Radiology results: report reviewed (CT of pelvis is negative for acute disease), image reviewed Disposition Clinical Impression: Dehydration, Lactic acidosis, Acute pancreatitis Disposition: ADMITTED IP TO THIS [facility] Condition: Good Is patient prescribed a controlled substance at d/c from ED?: No Referrals: Guillermo Cerda MD [Primary Care Provider] - 1-2 days
--- NOTE | 2018-10-23 14:00 | CT ---
EXAMINATION TYPE: CT abdomen pelvis w con DATE OF EXAM: 10/23/2018 COMPARISON: 08/23/2018 INDICATION: Lower abdominal pain DLP: 1439.7 mGycm, Automated exposure control for dose reduction was used. CONTRAST: 100 mL of Isovue 300. Study performed without Oral Contrast TECHNIQUE: Axial images were obtained from above the diaphragm to the pubic rami in the axial plane a t 5 mm thick sections. Reconstructed images are reviewed on the computer in the coronal plane. FINDINGS: Limited CT sections are obtained the lung bases. There is a 0.6 cm peripheral density at the right l ateral lung base present previously.. CT ABDOMEN: Liver: There is moderate fatty infiltration of the liver. Spleen: Normal Pancreas: Normal Adrenal glands: The adrenal glands are normal. Gallbladder: Normal Kidneys: No masses are evident. No hydronephrosis is present. There may be a cyst at the inferior p ole left kidney this area is unchanged from comparison. Delayed images were obtained through the kid neys, which remain unremarkable. Aorta: Normal Inferior vena cava: Normal. CT PELVIS: Loops of bowel within the abdomen and pelvis are normal. The study is performed without oral cont rast limiting bowel evaluation. Scattered sigmoid diverticuli are present. Appendix: Normal as visualized. Urinary bladder: Normal. Genitourinary structures: Uterus is normal. Adnexal regions appear unremarkable. Osseous structures: No suspicious lytic or sclerotic lesions. Bilateral fat-containing inguinal hernias are present. Note is again made of 2 surgical clips within the lower posterior pelvis away from the expected fallopian tubes. IMPRESSIONS: 1. Sigmoid diverticulosis without acute diverticulitis. 2. Moderate fatty infiltration to the liver.
[2018-10-23] MEDS ORDERED: SODIUM CHLORIDE 0.9% 2,000 ML IV STA (14:27)
[2018-10-23] MEDS ORDERED: SODIUM CHLORIDE 0.9% 500 ML 500 ML IV STA (14:27)
[2018-10-23 16:13] VITALS: BMI 42.0
[2018-10-23] MEDS: SODIUM CHLORIDE 0.9% 1,000 ML IV ONE ×2 (17:21→17:23)
[2018-10-23] MEDS: MORPHINE SULFATE 4 MG/ML SYRINGE IVP PRN (23:54)
[2018-10-24] MEDS: MORPHINE SULFATE 4 MG/ML SYRINGE IVP PRN (08:37)
[2018-10-24] MEDS ORDERED: traMADol 50 MG TAB PO PRN (10:21)
--- NOTE | 2018-10-24 11:14 | PN ---
PROGRESS NOTE CHIEF COMPLAINT: Abdominal pain with vomiting and elevated lipase. HISTORY OF PRESENT ILLNESS: This lady is feeling much better. She is hungry. Abdominal pain seems to have subsided. She is not vomiting. PHYSICAL EXAM: Vital signs are normal. Chest is clear. Cardiac exam is normal. The abdomen is protuberant, soft, nontender without visceromegaly or masses. Bowel sounds are present. Extremities are normal. IMPRESSION: Abdominal pain with vomiting, dehydration and elevated lipase. PLAN: 1. Repeat laboratory studies along with lipase. 2. Ultrasound of the gallbladder. 3. Progress activity and diet. MMODL / IJN: [id number] /
[2018-10-24 11:15] LABS: Anisocytosis Slight; Basophils % (A) 1 %; Eosinophils # (A) 0.2 k/uL (0-0.7); Eosinophils % (A) 3 %; HGB 10.7 gm/dL (11.4-16.0); Hypochromasia Slight; Lymphocytes # (A) 1.8 k/uL (1.0-4.8); Lymphocytes % (A) 27 %; MCH 27.3 pg (25.0-35.0); MCHC 33.6 g/dL (31.0-37.0); MCV 81.4 fL (80.0-100.0); Mean Platelet Volume 7.5; Microcytosis Slight; Monocytes # (A) 0.3 k/uL (0-1.0); Monocytes % (A) 4 %; Neutrophils # (A) 4.4 k/uL (1.3-7.7); Neutrophils % (A) 64 %; Platelet Count 410 k/uL (150-450); RBC 3.93 m/uL (3.80-5.40); RDW 17.7 % (11.5-15.5); WBC 6.9 k/uL (3.8-10.6)
--- NOTE | 2018-10-24 11:30 | HP ---
HISTORY AND PHYSICAL CHIEF COMPLAINT: Abdominal pain, nausea, vomiting, dehydration, elevated lactate and lipase. HISTORY OF PRESENT ILLNESS: This is another admission for this 48-year-old white female. She came to the emergency room with vague, crampy abdominal pain with nausea and vomiting. She was dehydrated. She was also found to have elevated lactic acid as well as a lipase. Gallbladder is still in place, but CT of the abdomen did fail to demonstrate significant evidence of gallbladder disease. There is no fever, chills, diarrhea, melena, hematochezia, acholic stools, dark urine, etc. REVIEW OF SYSTEMS: She denies any headaches, neurologic problems, change in the vision or the hearing, chest pain, cough, shortness of breath, hemoptysis, renal failure, dysuria, frequency, urgency, hematuria, etc. Past medical history, family history and personal and social histories are otherwise unremarkable and noncontributory. PHYSICAL EXAMINATION: Blood pressure 136/86 with a pulse of 93, respirations of 34, and she is afebrile. In general, she appeared to be overweight and in no acute distress. Skin was slightly pale. Lymph nodes not enlarged. Head, ears, eyes, nose, mouth, and throat were normal. Neck veins were not distended. Thyroid is not enlarged. Chest is clear. Cardiac exam is normal sinus rhythm and no murmurs or extra sounds. Abdomen is protuberant, soft, and she has slight tenderness around the umbilicus. There are no hernias. Bowel sounds present. Extremities are normal. Neurologically, she is intact. IMPRESSION: Abdominal pain with nausea, vomiting, dehydration and elevated lipase. PLAN: 1. Bed rest. 2. IV fluids. 3. Monitor abdominal pain and follow lipase. 4. Rule out gallbladder disease. MMODL / IJN: [id number] /
[2018-10-24 11:31] LABS: ALT 48 U/L (9-52); AST 59 U/L (14-36); African American GFR (CKD) >90 (>60 ml/min/1.73 sqM); Albumin 3.3 g/dL (3.5-5.0); Alkaline Phosphatase 82 U/L (38-126); Anion Gap 8 mmol/L; Blood Urea Nitrogen 8 mg/dL (7-17); Calcium 8.8 mg/dL (8.4-10.2); Carbon Dioxide 22 mmol/L (22-30); Chloride 112 mmol/L (98-107); Glucose 128 mg/dL (74-99); Non-African American GFR(CKD) >90 (>60 ml/min/1.73 sqM); Potassium 4.4 mmol/L (3.5-5.1); Sodium 142 mmol/L (137-145); Total Bilirubin 0.5 mg/dL (0.2-1.3); Total Protein 6.3 g/dL (6.3-8.2)
[2018-10-24] MEDS: PANTOPRAZOLE 40 MG TABLET PO SCH (13:04)
[2018-10-24] MEDS: SODIUM CHLORIDE 0.9% 1,000 ML IV SCH (18:27)
[2018-10-25 00:28] VITALS: RESP 18
[2018-10-25] MEDS: SODIUM CHLORIDE 0.9% 1,000 ML IV SCH (03:54)
[2018-10-25] MEDS: PANTOPRAZOLE 40 MG TABLET PO SCH (06:32)
[2018-10-25 09:43] VITALS: BP 152/89; PULSE 56; TEMP 98.5
--- NOTE | 2018-10-25 14:45 | DS ---
DISCHARGE SUMMARY CHIEF COMPLAINT: Abdominal pain. HISTORY OF PRESENT ILLNESS AND PHYSICAL EXAM: Details of this lady's history and physical can be found in the initial workup. LABORATORY STUDIES: While she was in the hospital, she had laboratory studies, details of which can be found laboratory section of her chart. COURSE IN HOSPITAL: After admission, she was placed on bedrest and started on IV intravenous fluids. She was kept n.p.o. Pain resolved and she had no further difficulty. Diet was started and advanced and she did well. Lipase came down on repeat. She will go home on usual activity, diet and medication and be seen in the office in several days. FINAL DIAGNOSES: 1. Abdominal pain. 2. Pancreatitis. OPERATIONS: None. CONSULTATION: None. She is improved. MMODL / IJN: [id number] /
== END 2018-10-25 10:30 | disposition home or self-care (01) ==
LOC: EC 12:13 → 6PED 14:27
PROVIDERS: ADMIT Family Medicine; ATTEND Family Medicine
DX: K85.90 Acute pancreatitis without necrosis or infection, unspecified (principal); E86.0 Dehydration; E87.2 Acidosis; G89.29 Other chronic pain; M54.9 Dorsalgia, unspecified; K21.9 Gastro-esophageal reflux disease without esophagitis; F17.200 Nicotine dependence, unspecified, uncomplicated; Z79.899 Other long term (current) drug therapy; Z79.1 Long term (current) use of non-steroidal anti-inflammatories (NSAID); Z79.891 Long term (current) use of opiate analgesic; Z87.440 Personal history of urinary (tract) infections
CPT/HCPCS: 96361 ×4; 96376 ×2; 96374; 96375; 99285; 36415; 80053 ×2; 82150; 82550; 83605; 83690 ×2; 85025 ×2; 81001; 87086; 74022; 74177; G0378 ×3; J2270 ×2; J1885; C9113; Q9967

== ENCOUNTER 2018-11-06 04:39 | Observation (INO) | payer MEDICARE ==
[2018-11-06] MEDS ORDERED: MORPHINE SULFATE 4 MG/ML SYRINGE IV STA (05:02)
[2018-11-06 05:15] LABS: Anisocytosis Slight; Basophils # (A) 0.1 k/uL (0-0.2); Basophils % (A) 1 %; Eosinophils # (A) 0.4 k/uL (0-0.7); Eosinophils % (A) 3 %; HGB 11.9 gm/dL (11.4-16.0); Lymphocytes # (A) 3.2 k/uL (1.0-4.8); Lymphocytes % (A) 25 %; MCH 26.3 pg (25.0-35.0); MCHC 32.3 g/dL (31.0-37.0); MCV 81.4 fL (80.0-100.0); Mean Platelet Volume 6.8; Microcytosis Slight; Monocytes # (A) 0.6 k/uL (0-1.0); Monocytes % (A) 4 %; Neutrophils # (A) 8.5 k/uL (1.3-7.7); Neutrophils % (A) 66 %; Platelet Count 562 k/uL (150-450); RBC 4.55 m/uL (3.80-5.40); RDW 17.2 % (11.5-15.5)
[2018-11-06 05:25] LABS: ALT 27 U/L (9-52); AST 26 U/L (14-36); African American GFR (CKD) >90 (>60 ml/min/1.73 sqM); Albumin 3.9 g/dL (3.5-5.0); Alkaline Phosphatase 94 U/L (38-126); Amylase 57 U/L (30-110); Anion Gap 13 mmol/L; Blood Urea Nitrogen 18 mg/dL (7-17); Calcium 9.1 mg/dL (8.4-10.2); Carbon Dioxide 20 mmol/L (22-30); Chloride 102 mmol/L (98-107); Glucose 417 mg/dL (74-99); Magnesium 1.6 mg/dL (1.6-2.3); Potassium 4.4 mmol/L (3.5-5.1); Sodium 135 mmol/L (137-145); Total Bilirubin 0.2 mg/dL (0.2-1.3); Total Protein 7.1 g/dL (6.3-8.2)
[2018-11-06 05:29] LABS: D-Dimer 0.42 mg/L FEU (<0.60); INR 0.9 (<1.2); Partial Thromboplastin Time 23.9 sec (22.0-30.0); Prothrombin Time 9.5 sec (9.0-12.0)
--- NOTE | 2018-11-06 05:40 | XR ---
EXAM: XR Chest, 2 Views CLINICAL HISTORY: Chest pain TECHNIQUE: Frontal and lateral views of the chest. COMPARISON: Chest x-ray dated 09/16/2018 FINDINGS: Lungs: Unremarkable. No consolidation. Pleural space: Unremarkable. No pneumothorax. Heart: Unremarkable. No cardiomegaly. Mediastinum: Unremarkable. Bones/joints: Unremarkable. IMPRESSION: Normal chest x-rays.
[2018-11-06] MEDS ORDERED: INSULIN REGULAR 100 UNIT/ML VIAL SQ STA (06:32)
[2018-11-06] MEDS ORDERED: SODIUM CHLORIDE 0.9% 1,000 ML IV ONE (06:32)
--- NOTE | 2018-11-06 07:04 | ED ---
Chest Pain HPI - General Chief Complaint: Chest Pain Stated Complaint: Chest pain Time Seen by Provider: 11/06/18 04:47 Source: patient Mode of arrival: EMS Limitations: no limitations - History of Present Illness Initial Comments: This patient is a 48-year-old woman with history of diabetes and previous pediatric cardiology procedure. She believes this was a septal defect. She presents to be evaluated for substernal chest pain that is been going on since about 10 PM. The onset while she was at rest. She describes it as a sharp pain, constant, moderate intensity. She has noted that it is worse with lying down or with palpation. It is somewhat better being upright. MD Complaint: chest pain Onset/Timin -: hour(s) Onset: during rest Pain Location: substernal Pain Radiation: none Severity: moderate Quality: sharp Consistency: constant Improves With: leaning forward Worsens With: supine, palpation Treatments Prior to Arrival: none - Related Data Home Medications Medication Instructions Recorded Confirmed Atorvastatin Calcium [Lipitor] 40 mg PO HS 10/14/18 10/23/18 Ergocalciferol (Vitamin D2) 50,000 unit PO Q28H 10/14/18 10/23/18 [Vitamin D2] Esomeprazole Magnesium [NexIUM] 40 mg PO DAILY 10/14/18 10/23/18 Ibuprofen [Motrin] 800 mg PO TID PRN 10/14/18 10/23/18 traMADol HCL [Ultram] 50 mg PO BID PRN 10/23/18 10/23/18 Allergies Allergy/AdvReac Type Severity Reaction Status Date / Time No Known Allergies Allergy Verified 10/23/18 16:00 Review of Systems ROS Statement: Those systems with pertinent positive or pertinent negative responses have been documented in the HPI. ROS Other: All systems not noted in ROS Statement are negative. Constitutional: Denies: fever, chills Respiratory: Denies: cough, dyspnea Cardiovascular: Reports: chest pain. Denies: palpitations, orthopnea, edema, syncope Gastrointestinal: Denies: abdominal pain, nausea, vomiting Genitourinary: Denies: dysuria, hematuria Musculoskeletal: Denies: back pain Skin: Denies: rash Neurological: Denies: headache EKG Findings - EKG Results: EKG: interpreted by ERMD, sinus rhythm (Rate 76 bpm), normal axis, normal ST/T - Blocks, [place], Hypertrophy, ST Abn: Chamber hypertrophy or enlargement: left ventricular hypertrophy or enlargement (LVE) Past Medical History Past Medical History: No Reported History Additional Past Medical History / Comment(s): GERD, Chronic back pain History of Any Multi-Drug Resistant Organisms: None Reported Past Surgical History: Tubal Ligation Additional Past Surgical History / Comment(s): Open heart surgery for hole in heart at Past Anesthesia/Blood Transfusion Reactions: No Reported Reaction Past Psychological History: No Psychological Hx Reported Smoking Status: Current every day smoker Past Alcohol Use History: None Reported Past Drug Use History: None Reported - Past Family History Mother Family Medical History: No Reported History Father Family Medical History: No Reported History General Exam Limitations: no limitations General appearance: alert, in no apparent distress Head exam: Present: atraumatic, normocephalic Eye exam: Present: normal appearance. Absent: scleral icterus, conjunctival injection Neck exam: Present: normal inspection Respiratory exam: Present: normal lung sounds bilaterally, chest wall tenderness. Absent: respiratory distress, wheezes, rales, rhonchi, stridor, accessory muscle use Cardiovascular Exam: Present: regular rate, normal rhythm, normal heart sounds. Absent: systolic murmur, diastolic murmur, rubs, gallop GI/Abdominal exam: Present: soft. Absent: distended, tenderness, guarding, rebound, mass Extremities exam: Present: normal inspection, normal capillary refill. Absent: pedal edema, calf tenderness Back exam: Present: normal inspection. Absent: CVA tenderness (R), CVA tenderness (L), vertebral tenderness Neurological exam: Present: alert Skin exam: Present: warm, dry, intact, normal color. Absent: rash Course Vital Signs 11/06/18 11/06/18 04:41 06:00 Temperature 98.2 F 98.3 F Pulse Rate 87 68 Respiratory 18 18 Rate Blood Pressure 169/95 163/87 O2 Sat by Pulse 98 98 Oximetry Chest Pain MDM - MDM Patient's 48-year-old woman presenting with substernal chest pain. There is some chest wall component, but patient states this is not exactly mimic her pain. In addition patient has mildly elevated lipase. She is also found to have poorly controlled diabetes with blood sugar of 416. She is given fluid and insulin. Case discussed with Dr. Cerda, who, given the patient's history of poorly controlled diabetes will admit for serial cardiac enzymes, telemetry monitoring and cardiology consultation. Disposition Clinical Impression: Chest pain, Hyperglycemia Disposition: ADMITTED IP TO THIS HOSP Condition: Fair Is patient prescribed a controlled substance at d/c from ED?: No Referrals: Guillermo Cerda MD [Primary Care Provider] - 1-2 days
[2018-11-06] MEDS ORDERED: NITROGLYCERIN SL TABS 0.4 MG TAB SUBLINGUAL PRN (07:08)
[2018-11-06] MEDS ORDERED: IBUPROFEN 800 MG TAB PO PRN (07:11)
[2018-11-06] MEDS: INSULIN ASPART (NovoLOG) 100 UNIT/ML VIAL SQ SCH ×4 (10:56→21:21)
[2018-11-06] MEDS: PANTOPRAZOLE 40 MG TABLET PO SCH (10:57)
[2018-11-06 11:38] LABS: Glucose,Whole Blood 271 mg/dL (75-99)
[2018-11-06 16:46] LABS: Glucose,Whole Blood 179 mg/dL (75-99)
[2018-11-06 18:02] LABS: Hemoglobin A1C 8.2 % (4.0-6.0)
--- NOTE | 2018-11-06 20:06 | HP ---
HISTORY AND PHYSICAL CHIEF COMPLAINT: Chest pain. HISTORY OF PRESENT ILLNESS: This lady presented to the emergency room with discomfort in the anterior chest. She describes it as a pressure, and she did get somewhat short of breath. In the emergency room studies were unremarkable except she had a blood sugar of around 400. She has never had diabetes before. REVIEW OF SYSTEMS: Otherwise unremarkable. She has had no vomiting, blurred vision, shortness of breath, frequency, etc. PHYSICAL EXAMINATION: Blood pressure is 142/90 with a pulse of 91, respirations of 36, and she is afebrile. In general she appeared to be overweight and in no acute distress. She was slightly dehydrated. Head, ears, eyes, nose, mouth and throat were normal. Neck veins were not distended. Chest was clear. Cardiac exam was normal and there were no murmurs or extra sounds. The abdomen was protuberant, soft, nontender. There was no visceromegaly. Bowel sounds were present. Extremities were normal. Neurologically she is intact. IMPRESSION: 1. Chest pain. 2. New-onset diabetes mellitus. PLAN: 1. Bed rest. 2. IV fluids. 3. Serial EKGs and enzymes. 4. Cardiology consult. 5. Manage diabetes along with diabetic teaching. MMODL / IJN: [id number] /
[2018-11-06 20:39] LABS: Glucose,Whole Blood 164 mg/dL (75-99)
[2018-11-06] MEDS ORDERED: ATORVASTATIN 40 MG TAB PO SCH (21:00)
[2018-11-06] MEDS: traMADol 50 MG TAB PO PRN (21:21)
[2018-11-07 05:34] LABS: Cholesterol 222 mg/dL (<200); HDL Cholesterol 24 mg/dL (40-60); Triglycerides 501 mg/dL (<150)
[2018-11-07 06:37] LABS: Glucose,Whole Blood 186 mg/dL (75-99)
[2018-11-07] MEDS: INSULIN ASPART (NovoLOG) 100 UNIT/ML VIAL SQ SCH ×3 (06:58→17:00)
[2018-11-07] MEDS: PANTOPRAZOLE 40 MG TABLET PO SCH (06:58)
[2018-11-07] MEDS ORDERED: DOBUTamine DRIP for NUC MED 500 MG in DEXTROSE/WATER 1 250ML.BAG IV ONE (08:49)
[2018-11-07] MEDS ORDERED: ASPIRIN 325 MG TAB PO SCH (09:00)
--- NOTE | 2018-11-07 10:10 | CONS ---
CONSULTATION CHIEF COMPLAINT: Chest pain. Dayna is a 48-year-old lady with history of dyslipidemia who presented to hospital complaining of chest discomfort. She describes it as a precordial chest pressure without radiation to neck, arm or back, it is mild in intensity. She had some shortness of breath but there was no diaphoresis. On her initial arrival, she had elevated blood sugars at 400. There is no prior history of diabetes. At the time of my evaluation, she appears comfortable at rest and is free of symptoms. EKG does not reveal ischemic changes and cardiac enzymes have been negative. PAST MEDICAL HISTORY: Significant for GERD and dyslipidemia. CURRENT MEDICATIONS: Include Motrin, Nexium, and Lipitor. ALLERGIES: There are no known drug allergies. FAMILY HISTORY: Negative for premature coronary artery disease. SOCIAL HISTORY: Negative for current smoking, EtOH abuse, or drug abuse. REVIEW OF SYSTEMS: HEENT: Unremarkable. CARDIAC: As described above. RESPIRATORY: Negative. GI: Negative. GENITOURINARY: Negative. ALLERGY/IMMUNOLOGY: Negative. SKIN: Negative. MUSCULOSKELETAL: Negative. ENDOCRINE: Negative. DERM: Negative. CONSTITUTIONAL: Negative. ONCOLOGICAL: Negative. Rest of the system review is not relevant. PHYSICAL EXAM: Comfortable at rest. Vital signs are stable. There is no jugular venous distention. Carotid upstroke is normal. There is no bruit. Chest exam reveals good air entry bilaterally. Heart exam reveals first and second heart sounds. No gallop. No murmur. No rub. Abdomen is soft, nontender. Exam of the extremities did not reveal any edema. Peripheral pulses are felt. SEASONAL RECRUITER exam did not reveal focal neurological deficits. ASSESSMENT: 1. Precordial chest pain. 2. New onset diabetes. PLAN: Myocardial infarction is ruled out. I am going to obtain a dobutamine echo on her. If this is abnormal, she will need a cardiac catheterization. If this is normal, she can be discharged home. MMODL / IJN: [id number] /
[2018-11-07] MEDS ORDERED: ATROPINE SULFATE 0.1 MG/ML 10ML SYRINGE ONE (12:15)
[2018-11-07] MEDS ORDERED: METOPROLOL TARTRATE 5 MG/5 ML VIAL IVP ONE (12:15)
[2018-11-07 12:33] LABS: Glucose,Whole Blood 172 mg/dL (75-99)
--- NOTE | 2018-11-07 13:12 | ECHOS ---
STRESS ECHOCARDIOGRAM DOBUTAMINE ECHO DATE OF SERVICE: 11/07/2018 INDICATIONS: Chest pain. MEDICATIONS: BASELINE HEART RATE: 72 BASELINE BLOOD PRESSURE: 169/69 MAXIMUM HEART RATE: 134 MAXIMUM BLOOD PRESSURE: 220/60 85% MPHR: 148 100% MPHR: 174 METS: MAXIMUM STAGE REACHED: TOTAL EXERCISE TIME: CLINICAL INFORMATION: Baseline EKG revealed normal sinus rhythm without significant ST-T changes. With dobutamine administration as per protocol and also with additional 1 mg of atropine, heart rate went up to 134 beats per minute which is less than 85% of predicted maximal. Patient did not have any significant symptoms. Rare PVCs were noted. Patient had hypertensive response with 220/60 as the peak blood pressure. By EKG criteria, this is an inconclusive dobutamine stress test because of inadequate chronotropic response. Baseline echo images revealed normal wall motion and wall thickening. Definity was used to improve the quality of images. There was progressive increase in contractility noted with dobutamine administration as per protocol. There is no evidence to suggest ischemia at a heart rate of 134 beats per minute which is 77% of the predicted maximal heart rate. FINAL IMPRESSION: 1. By EKG criteria, this is an inconclusive dobutamine stress test because of inadequate chronotropic response. 2. Inadequate chronotropic response but at 77% of predicted maximal heart rate with dobutamine administration, and atropine administration, there is no evidence to suggest any ischemia. MMODL / IJN: [id number] /
--- NOTE | 2018-11-07 13:45 | PN ---
PROGRESS NOTE CHIEF COMPLAINT: Chest pain. HISTORY OF PRESENT ILLNESS: This lady is doing well and she has not had any further pain. She is going for a stress study today. PHYSICAL EXAM: Chest is clear. Cardiac exam is normal. The abdomen is protuberant soft without masses. Extremities: Normal. IMPRESSION: Chest pain. PLAN: A stress study today. MMODL / IJN: [id number] /
[2018-11-07 14:35] VITALS: BMI 41.1
[2018-11-07] MEDS: traMADol 50 MG TAB PO PRN (14:47)
[2018-11-07 15:49] VITALS: BP 133/82; PULSE 75; RESP 16; TEMP 98.5
[2018-11-07 16:43] LABS: Glucose,Whole Blood 190 mg/dL (75-99)
--- NOTE | 2018-11-10 18:45 | DS ---
DISCHARGE SUMMARY DATE OF DISCHARGE: 11/07/2018 CHIEF COMPLAINT: Chest pain. HISTORY OF PRESENT ILLNESS AND PHYSICAL EXAMINATION: Details of this lady's history and physical can be found in the initial workup. LABORATORY STUDIES: While she was in the hospital she had laboratory studies, details of which can be found in the laboratory section of her chart. COURSE IN THE HOSPITAL: After admission she was placed on bedrest, started on intravenous fluids and was seen by Cardiology. Enzymes were negative. Studies suggested that this was not cardiac pain. However, while in the hospital, her blood sugars were found to be elevated. It was felt she could go home on November 07. She will follow up in the office in several days and we will manage her diabetes. FINAL DIAGNOSES: 1. Atypical chest pain. 2. New-onset diabetes mellitus, type 2. 3. Obesity. OPERATIONS: None. CONSULTATION: Cardiology. She is improved. MMJOHANL / EVELINN: [id number] /
== END 2018-11-07 17:28 | disposition home or self-care (01) ==
LOC: EC 04:39 → 3SCARD 07:08
PROVIDERS: ADMIT Family Medicine; ATTEND Family Medicine
DX: R07.89 Other chest pain (principal); E11.65 Type 2 diabetes mellitus with hyperglycemia; E86.0 Dehydration; R74.8 Abnormal levels of other serum enzymes; K21.9 Gastro-esophageal reflux disease without esophagitis; G89.29 Other chronic pain; M54.9 Dorsalgia, unspecified; E78.5 Hyperlipidemia, unspecified; E66.9 Obesity, unspecified; Z68.41 Body mass index [BMI] 40.0-44.9, adult; F17.200 Nicotine dependence, unspecified, uncomplicated; Z79.899 Other long term (current) drug therapy; Z79.1 Long term (current) use of non-steroidal anti-inflammatories (NSAID); Z87.74 Personal history of (corrected) congenital malformations of heart and circulatory system; Z98.51 Tubal ligation status
CPT/HCPCS: 96361 ×3; 96374; 99285; 36415; 93005; 85379; 83880; 80061; 80053; 82150; 83690; 83735; 84484; 85025; 85610; 85730; 83036; 71046; G0378 ×2; C8930; J1250; J2270; J0461; Q9950; 93351

== ENCOUNTER 2018-11-17 06:09 | Emergency (ER) | payer MEDICARE ==
[2018-11-17 06:20] LABS: Glucose,Whole Blood 181 mg/dL (75-99)
[2018-11-17 06:21] VITALS: TEMP 98.7
--- NOTE | 2018-11-17 06:38 | ED ---
Headache HPI - General Chief Complaint: Headache Stated Complaint: Headache Time Seen by Provider: 11/17/18 06:11 Source: patient, EMS, RN notes reviewed Mode of arrival: EMS Limitations: no limitations - History of Present Illness Initial Comments: 48-year-old female presents emergency department tingling right foot pain, headache. Patient that she woke up at 5am this morning states that she had a mild headache in the frontal aspect. She is sent worse headache of her life she states she took a tramadol states her headache is actually resolving at this time. Patient denies any blurred vision, double vision, focal weakness, numbness, vomiting, fever, chills, neck pain or neck stiffness. Patient also complaints that she has right foot pain for last 3 days patient denies any trauma has no pain at rest states that it hurts to ambulate across her chest performed. Denies any swelling or redness. Denies any paresthesias.. - Related Data Home Medications Medication Instructions Recorded Confirmed Ergocalciferol (Vitamin D2) 50,000 unit PO Q28H 10/14/18 11/17/18 [Vitamin D2] Esomeprazole Magnesium [NexIUM] 40 mg PO DAILY 10/14/18 11/17/18 Ibuprofen [Motrin] 800 mg PO TID PRN 10/14/18 11/17/18 traMADol HCl [Ultram] 50 mg PO Q6H PRN 11/17/18 11/17/18 Previous Rx's Medication Instructions Recorded Atorvastatin Calcium [Lipitor] 80 mg PO DAILY #30 tablet 11/07/18 Allergies Allergy/AdvReac Type Severity Reaction Status Date / Time No Known Allergies Allergy Verified 11/17/18 07:28 Review of Systems ROS Statement: Those systems with pertinent positive or pertinent negative responses have been documented in the HPI. ROS Other: All systems not noted in ROS Statement are negative. Past Medical History Past Medical History: GERD/Reflux, Hyperlipidemia Additional Past Medical History / Comment(s): Pt recently admitted to [facility] on 10/23/18 with abdominal pain/pancreatitis. Other hx: Chronic low back pain- bulging discs History of Any Multi-Drug Resistant Organisms: None Reported Past Surgical History: Tubal Ligation Additional Past Surgical History / Comment(s): Age 7 had VSD repair Past Anesthesia/Blood Transfusion Reactions: No Reported Reaction Past Psychological History: No Psychological Hx Reported Smoking Status: Current every day smoker Past Alcohol Use History: None Reported Past Drug Use History: None Reported - Past Family History Mother Family Medical History: No Reported History Additional Family Medical History / Comment(s): Mother is healthy Father Family Medical History: No Reported History Additional Family Medical History / Comment(s): Father is healthy General Exam General appearance: alert, in no apparent distress Head exam: Present: atraumatic, normocephalic, normal inspection Eye exam: Present: normal appearance, PERRL, EOMI. Absent: scleral icterus, conjunctival injection, periorbital swelling ENT exam: Present: normal exam, normal oropharynx, mucous membranes moist Neck exam: Present: normal inspection, full ROM. Absent: tenderness, meningismus, lymphadenopathy Respiratory exam: Present: normal lung sounds bilaterally. Absent: respiratory distress, wheezes, rales, rhonchi, stridor Cardiovascular Exam: Present: regular rate, normal rhythm, normal heart sounds. Absent: systolic murmur, diastolic murmur, rubs, gallop, clicks Extremities exam: Present: other (Mild tenderness the right foot arch with no swelling, redness or rash to the right foot neurovascular intact with equal pedal pulses) Neurological exam: Present: alert, oriented X3, CN II-XII intact, reflexes normal, other (finger to nose intact). Absent: motor sensory deficit Skin exam: Present: warm, dry, intact, normal color. Absent: rash Course Vital Signs 11/17/18 06:17 Temperature 98.7 F Pulse Rate 66 Respiratory 18 Rate Blood Pressure 138/73 O2 Sat by Pulse 92 L Oximetry Medical Decision Making - Medical Decision Making 48-year-old female present for headache and foot pain. Patient has plantar fasciitis. Patient's headache resolved with oral medications she has a normal neuro exam. Patient will be discharged return parameters were discussed. - Lab Data Lab Results 11/17/18 Range/Units 06:18 POC Glucose (mg/dL) 181 H (75-99) mg/dL POC Glu Paper Steamer ID Milena Benson Disposition Clinical Impression: Headache, Plantar fasciitis Disposition: HOME SELF-CARE Condition: Stable Instructions (If sedation given, give patient instructions): Acute Headache (ED), Plantar Fasciitis (ED), Plantar Fasciitis Exercises (ED) Additional Instructions: Please return to the Emergency Department if symptoms worsen or any other concerns. Is patient prescribed a controlled substance at d/c from ED?: No Referrals: Guillermo Cerda MD [Primary Care Provider] - 1-2 days Time of Disposition: 07:57
--- NOTE | 2018-11-17 08:10 | XR ---
EXAM: XR Right Foot Complete, 3 or More Views CLINICAL HISTORY: Pain TECHNIQUE: Frontal, lateral and oblique views of the right foot. COMPARISON: No relevant prior studies available. FINDINGS: Bones/joints: Unremarkable. No acute fracture. No dislocation. Soft tissues: No significant soft tissue swelling identified. No radiopaque foreign body. IMPRESSION: No acute osseous traumatic injury or abnormal alignment of the right foot. No significant soft tissue swelling identified.
[2018-11-17 08:25] VITALS: BP 126/75; PULSE 73; RESP 20
== END 2018-11-17 08:23 | disposition home or self-care (01) ==
LOC: EC 06:09
DX: R51 Headache (principal); M72.2 Plantar fascial fibromatosis; K21.9 Gastro-esophageal reflux disease without esophagitis; F17.200 Nicotine dependence, unspecified, uncomplicated; Z79.899 Other long term (current) drug therapy
CPT/HCPCS: 36415; 99284

== ENCOUNTER 2018-11-20 08:01 | Emergency (ER) | payer MEDICARE ==
[2018-11-20 08:14] VITALS: TEMP 98
[2018-11-20 08:29] LABS: Anisocytosis Slight; Basophils # (A) 0.1 k/uL (0-0.2); Basophils % (A) 1 %; Eosinophils # (A) 0.3 k/uL (0-0.7); Eosinophils % (A) 3 %; HCT 42.2 % (34.0-46.0); HGB 13.5 gm/dL (11.4-16.0); Hypochromasia Slight; Lymphocytes # (A) 2.7 k/uL (1.0-4.8); Lymphocytes % (A) 22 %; MCH 26.1 pg (25.0-35.0); MCV 81.7 fL (80.0-100.0); Mean Platelet Volume 7.4; Microcytosis Slight; Monocytes # (A) 0.5 k/uL (0-1.0); Monocytes % (A) 4 %; Neutrophils # (A) 8.4 k/uL (1.3-7.7); Neutrophils % (A) 69 %; Platelet Count 664 k/uL (150-450); RBC 5.16 m/uL (3.80-5.40); RDW 17.4 % (11.5-15.5); WBC 12.1 k/uL (3.8-10.6)
[2018-11-20] MEDS ORDERED: LIDOCAINE 5% PATCH TOPICAL STA (08:33)
[2018-11-20] MEDS ORDERED: KETOROLAC 30 MG/ML 1 ML VIAL IVP STA (08:33)
--- NOTE | 2018-11-20 08:37 | ED ---
General Adult HPI - General Chief complaint: Chest Pain Stated complaint: chest pain Time Seen by Provider: 11/20/18 08:17 Source: EMS Mode of arrival: EMS Limitations: no limitations - History of Present Illness Initial comments: Dictation was produced using [employer] dictation software. please excuse any grammatical, word or spelling errors. Chief Complaint: 48-year-old female past nuchal history of GERD and dyslipidemia presents with chest pain. History of Present Illness: 48-year-old female she presents with sharp chest pain to the substernal chest. She states it started yesterday. Patient denies any trauma to the chest. It hurts when she takes deep breath or moves in certain position. Patient has been coughing recently. She will go this morning and felt like her pain hasn't improved. She called EMS and was transferred to the emergency department. Patient has past medical history of open heart surgery at age 7 for ventricular septal defect repair. Patient denies any radiation of pain to the shoulders or jaw. No associated diaphoresis. Patient denies any history of coronary artery disease. Pain is not exacerbated with exertion. The ROS documented in this emergency department record has been reviewed and confirmed by me. Those systems with pertinent positive or negative responses have been documented in the HPI. All other systems are other negative and/or noncontributory. PHYSICAL EXAM: General Impression: Alert and oriented x3, not in acute distress HEENT: Normocephalic atraumatic, extra-ocular movements intact, pupils equal and reactive to light bilaterally, mucous membranes moist. Cardiovascular: Heart regular rate and rhythm, S1&S2 audible, no murmurs, rubs or gallops Chest: Lungs clear to auscultation bilaterally, no rhonchi, no wheeze, no rales, tenderness to palpation over the mid sternum Abdomen: Bowel sounds present, abdomen soft, non-tender, non-distended, no organomegaly Musculoskeletal: Pulses present and equal in all extremities, no peripheral edema Motor: no focal deficits noted Neurological: CN II-XII grossly intact, no focal motor or sensory deficits noted Skin: Intact with no visualized rashes Psych: Normal affect and mood ED course: 48-year-old female presents with clinical presentation consistent with acute chest strain. As upon arrival are within acceptable limits. EKG does not show any signs of ischemia or infarction. Chart review shows that patient had a dobutamine stress echo earlier this month. Her stress test was inconclusive but no evidence of acute ischemia.Laboratory evaluation obtained. Follow status at 12.1 with mild thrombocytosis 664. Coag panel is unremarkable. Metabolic panel shows glucose of 167. . Coag panel unremarkable. Chest x-ray obtained showing no acute processes. More history was obtained from patient she has recently been having runny nose and nonproductive cough and sore throat. There is concern that patient has a URI. No suspicion of bacterial URI at this time given recent onset of symptoms in patient is well-appearing. Patient's chest symptoms could be secondary to chest strain from recent cough. Patient denies she had a tubal ligation. Patient treated with Toradol and Lidoderm patch. She is reevaluated after a short ED observation with improvement of symptoms. Patient clear for discharge. She is told to follow-up with primary care physician. Return parameters discussed. EKG interpretation: Ventricular rate 66, normal sinus rhythm, [place] interval 150, Q's 84, QTC 494. No [place] prolongation, no QTC prolongation, no ST or T-wave changes noted. EKG compared to 11/06/2018 chart review shows that patient had a. Overall, this EKG is unremarkable - Related Data Home Medications Medication Instructions Recorded Confirmed Ergocalciferol (Vitamin D2) 50,000 unit PO Q28D 10/14/18 11/20/18 [Vitamin D2] Esomeprazole Magnesium [NexIUM] 40 mg PO DAILY 10/14/18 11/20/18 Ibuprofen [Motrin] 800 mg PO TID PRN 10/14/18 11/20/18 traMADol HCl [Ultram] 50 mg PO Q6H PRN 11/17/18 11/20/18 Previous Rx's Medication Instructions Recorded Atorvastatin Calcium [Lipitor] 80 mg PO DAILY #30 tablet 11/07/18 Allergies Allergy/AdvReac Type Severity Reaction Status Date / Time No Known Allergies Allergy Verified 11/20/18 08:20 Review of Systems ROS Statement: Those systems with pertinent positive or pertinent negative responses have been documented in the HPI. ROS Other: All systems not noted in ROS Statement are negative. Past Medical History Past Medical History: GERD/Reflux, Hyperlipidemia Additional Past Medical History / Comment(s): Pt recently admitted to [facility] on 10/23/18 with abdominal pain/pancreatitis. Other hx: Chronic low back pain- bulging discs History of Any Multi-Drug Resistant Organisms: None Reported Past Surgical History: Tubal Ligation Additional Past Surgical History / Comment(s): Age 7 had VSD repair Past Anesthesia/Blood Transfusion Reactions: No Reported Reaction Past Psychological History: No Psychological Hx Reported Smoking Status: Current every day smoker Past Alcohol Use History: None Reported Past Drug Use History: None Reported - Past Family History Mother Family Medical History: No Reported History Additional Family Medical History / Comment(s): Mother is healthy Father Family Medical History: No Reported History Additional Family Medical History / Comment(s): Father is healthy General Exam Limitations: no limitations Course Vital Signs 11/20/18 11/20/18 08:09 09:00 Temperature 98.0 F Pulse Rate 68 60 Respiratory 16 18 Rate Blood Pressure 142/83 125/69 O2 Sat by Pulse 95 98 Oximetry Medical Decision Making - Lab Data Result diagrams: 11/20/18 08:08 11/20/18 08:08 Lab Results 11/20/18 11/20/18 11/20/18 Range/Units 08:08 08:08 08:08 WBC 12.1 H (3.8-10.6) k/uL RBC 5.16 (3.80-5.40) m/uL Hgb 13.5 (11.4-16.0) gm/dL Hct 42.2 (34.0-46.0) % MCV 81.7 (80.0-100.0) fL MCH 26.1 (25.0-35.0) pg MCHC 32.0 (31.0-37.0) g/dL RDW 17.4 H (11.5-15.5) % Plt Count 664 H (150-450) k/uL Neutrophils % 69 % Lymphocytes % 22 % Monocytes % 4 % Eosinophils % 3 % Basophils % 1 % Neutrophils # 8.4 H (1.3-7.7) k/uL Lymphocytes # 2.7 (1.0-4.8) k/uL Monocytes # 0.5 (0-1.0) k/uL Eosinophils # 0.3 (0-0.7) k/uL Basophils # 0.1 (0-0.2) k/uL Hypochromasia Slight Anisocytosis Slight Microcytosis Slight PT 9.8 (9.0-12.0) sec INR 0.9 (<1.2) APTT 23.6 (22.0-30.0) sec Sodium 143 (137-145) mmol/L Potassium 4.0 (3.5-5.1) mmol/L Chloride 105 (98-107) mmol/L Carbon Dioxide 26 (22-30) mmol/L Anion Gap 12 mmol/L BUN 14 (7-17) mg/dL Creatinine 0.81 (0.52-1.04) mg/dL Est GFR (CKD-EPI)AfAm >90 (>60 ml/min/1.73 sqM) Est GFR (CKD-EPI)NonAf 88 (>60 ml/min/1.73 sqM) Glucose 167 H (74-99) mg/dL Calcium 9.4 (8.4-10.2) mg/dL Disposition Clinical Impression: Chest pain Disposition: HOME SELF-CARE Condition: Good Instructions (If sedation given, give patient instructions): Chest Pain (ED) Is patient prescribed a controlled substance at d/c from ED?: No Referrals: Guillermo Cerda MD [Primary Care Provider] - 1-2 days Time of Disposition: 09:20
--- NOTE | 2018-11-20 08:37 | XR ---
EXAMINATION TYPE: XR chest 2V DATE OF EXAM: 11/20/2018 COMPARISON: 11/06/2018 HISTORY: Chest pain TECHNIQUE: Frontal and lateral views of the chest are obtained. FINDINGS: There is no focal air space opacity, pleural effusion, or pneumothorax seen. Unchanged lef t midlung platelike subsegmental atelectasis. The cardiac silhouette size is upper limits of normal w ith post CABG change. The osseous structures are intact. IMPRESSION: Unchanged left midlung platelike atelectasis. No acute cardiopulmonary process.
[2018-11-20 08:38] LABS: INR 0.9 (<1.2); Partial Thromboplastin Time 23.6 sec (22.0-30.0); Prothrombin Time 9.8 sec (9.0-12.0)
[2018-11-20 08:48] LABS: African American GFR (CKD) >90 (>60 ml/min/1.73 sqM); Anion Gap 12 mmol/L; Blood Urea Nitrogen 14 mg/dL (7-17); Calcium 9.4 mg/dL (8.4-10.2); Carbon Dioxide 26 mmol/L (22-30); Chloride 105 mmol/L (98-107); Glucose 167 mg/dL (74-99); Sodium 143 mmol/L (137-145)
[2018-11-20 09:04] VITALS: BP 125/69; PULSE 60; RESP 18
== END 2018-11-20 09:30 | disposition home or self-care (01) ==
LOC: EC 08:01
DX: D47.3 Essential (hemorrhagic) thrombocythemia (principal); K21.9 Gastro-esophageal reflux disease without esophagitis; F17.200 Nicotine dependence, unspecified, uncomplicated; Z98.890 Other specified postprocedural states; Z79.899 Other long term (current) drug therapy
CPT/HCPCS: 36415; 93005; 80048; 85025; 85610; 85730; 71046; 99285; 96374; J1885

== ENCOUNTER 2018-12-12 16:41 | Emergency (ER) | payer MEDICARE ==
[2018-12-12 17:15] VITALS: RESP 18
[2018-12-12] MEDS ORDERED: SODIUM CHLORIDE 0.9% 1,000 ML IV STA (17:56)
[2018-12-12] MEDS ORDERED: MECLIZINE 12.5 MG TAB PO STA (17:56)
[2018-12-12 18:17] LABS: ALT 30 U/L (9-52); AST 30 U/L (14-36); African American GFR (CKD) >90 (>60 ml/min/1.73 sqM); Albumin 3.7 g/dL (3.5-5.0); Alkaline Phosphatase 110 U/L (38-126); Anion Gap 14 mmol/L; Blood Urea Nitrogen 13 mg/dL (7-17); Carbon Dioxide 19 mmol/L (22-30); Chloride 106 mmol/L (98-107); Glucose 259 mg/dL (74-99); Potassium 4.2 mmol/L (3.5-5.1); Sodium 139 mmol/L (137-145); Total Bilirubin 0.3 mg/dL (0.2-1.3)
[2018-12-12 18:24] LABS: Anisocytosis Slight; Basophils # (A) 0.1 k/uL (0-0.2); Basophils % (A) 1 %; Eosinophils # (A) 0.3 k/uL (0-0.7); Eosinophils % (A) 3 %; HCT 35.7 % (34.0-46.0); HGB 11.7 gm/dL (11.4-16.0); Lymphocytes # (A) 1.9 k/uL (1.0-4.8); Lymphocytes % (A) 17 %; MCH 25.9 pg (25.0-35.0); MCHC 32.7 g/dL (31.0-37.0); MCV 79.4 fL (80.0-100.0); Microcytosis Slight; Monocytes # (A) 0.4 k/uL (0-1.0); Monocytes % (A) 4 %; Neutrophils # (A) 8.4 k/uL (1.3-7.7); Neutrophils % (A) 74 %; Platelet Count 635 k/uL (150-450); RDW 17.1 % (11.5-15.5); WBC 11.3 k/uL (3.8-10.6)
[2018-12-12 18:37] LABS: Appearance,Urine Cloudy (Clear); Bacteria,Urine Many /hpf; Bilirubin,Urine Negative (Negative); Blood,Urine Negative (Negative); Color,Urine Yellow; Glucose,Urine (UA) Negative (Negative); Hyaline Casts,Urine 6 /lpf (0-2); Ketones,Urine Negative (Negative); Leukocyte Esterase,Urine Large (Negative); Mucus,Urine Rare /hpf; Nitrite,Urine Positive (Negative); Protein,Urine 2+ (Negative); RBC,Urine 12 /hpf (0-5); Squamous Epithelial Cell,Urine 10 /hpf (0-4); Urobilinogen,Urine <2.0 mg/dL (<2.0); WBC,Urine >182 /hpf (0-5)
--- NOTE | 2018-12-12 18:41 | XR ---
EXAMINATION TYPE: XR chest 2V DATE OF EXAM: 12/12/2018 COMPARISON: 11/20/2018 HISTORY: Syncope TECHNIQUE: Frontal and lateral views of the chest are obtained. FINDINGS: There is no heart failure nor confluent pneumonic infiltrate. Costophrenic angles are radha r. There are chest leads. Bony thorax is intact. IMPRESSION: No active cardiopulmonary disease. Normal heart. No significant change.
--- NOTE | 2018-12-12 18:42 | CT ---
EXAMINATION TYPE: CT brain wo con DATE OF EXAM: 12/12/2018 COMPARISON: None HISTORY: Dizziness and syncope. CT DLP: 1070.4 mGycm. Automated Exposure Control for Dose Reduction was Utilized. TECHNIQUE: CT scan of the head is performed without contrast. FINDINGS: Ventricles and sulci appear normal. There is no mass effect nor midline shift. There is no sign of intracranial hemorrhage. Calvarium is intact. IMPRESSION: Negative head CT scan.
--- NOTE | 2018-12-12 18:49 | ED ---
Dizziness HPI - General Chief Complaint: Dizziness Stated Complaint: Dizziness,Syncope Source: patient, EMS Mode of arrival: EMS Limitations: no limitations - History of Present Illness Initial Comments: The patient is a 48-year-old female who presents to the emergency department with reported vertiginous symptoms. The patient states that she was on the couch watching TV when she had sudden onset of room spinning. She felt slightly nauseated however had no vomiting. She denies any associated vision changes or headache. No fevers or chills. No sick contacts or recent travel. She denies any neck pain or stiffness. No chest pain or shortness of breath. Denies any abdominal pain. Reports no changes in her bowel or bladder habits. She does admit to a history of similar in the past however is unsure what she was diagnosed with. She did not take any medications at home for her symptoms. She denies concern for . No abnormal vaginal bleeding or discharge. No recent head trauma. Denies any recent upper respiratory infections. No history of any cardiac abnormalities or arrhythmias. Denies shortness of breath there are no other alleviating, precipitating or modifying factors - Related Data Home Medications Medication Instructions Recorded Confirmed Esomeprazole Magnesium [NexIUM] 40 mg PO DAILY 10/14/18 12/12/18 Ibuprofen [Motrin] 800 mg PO TID PRN 10/14/18 12/12/18 traMADol HCl [Ultram] 50 mg PO Q6H PRN 11/17/18 12/12/18 Previous Rx's Medication Instructions Recorded Cephalexin [Keflex] 500 mg PO BID #10 cap 12/12/18 Allergies Allergy/AdvReac Type Severity Reaction Status Date / Time No Known Allergies Allergy Verified 11/20/18 08:20 Review of Systems ROS Statement: Those systems with pertinent positive or pertinent negative responses have been documented in the HPI. ROS Other: All systems not noted in ROS Statement are negative. Past Medical History Past Medical History: GERD/Reflux, Hyperlipidemia Additional Past Medical History / Comment(s): Pt recently admitted to [facility] on 10/23/18 with abdominal pain/pancreatitis. Other hx: Chronic low back pain- bulging discs History of Any Multi-Drug Resistant Organisms: None Reported Past Surgical History: Tubal Ligation Additional Past Surgical History / Comment(s): Age 7 had VSD repair Past Anesthesia/Blood Transfusion Reactions: No Reported Reaction Past Psychological History: No Psychological Hx Reported Smoking Status: Current every day smoker Past Alcohol Use History: None Reported Past Drug Use History: None Reported - Past Family History Mother Family Medical History: No Reported History Additional Family Medical History / Comment(s): Mother is healthy Father Family Medical History: No Reported History Additional Family Medical History / Comment(s): Father is healthy General Exam Limitations: no limitations General appearance: alert, in no apparent distress Head exam: Present: atraumatic, normocephalic, normal inspection Eye exam: Present: normal appearance, PERRL, EOMI. Absent: scleral icterus, conjunctival injection, periorbital swelling ENT exam: Present: normal exam, mucous membranes moist Neck exam: Present: normal inspection. Absent: tenderness, meningismus, lymphadenopathy Respiratory exam: Present: normal lung sounds bilaterally. Absent: respiratory distress, wheezes, rales, rhonchi, stridor Cardiovascular Exam: Present: regular rate, normal rhythm, normal heart sounds. Absent: systolic murmur, diastolic murmur, rubs, gallop, clicks GI/Abdominal exam: Present: soft, normal bowel sounds. Absent: distended, tenderness, guarding, rebound, rigid Extremities exam: Present: normal inspection, full ROM, normal capillary refill. Absent: tenderness, pedal edema, joint swelling, calf tenderness Back exam: Present: normal inspection Neurological exam: Present: alert, oriented X3, CN II-XII intact Psychiatric exam: Present: normal affect, normal mood Skin exam: Present: warm, dry, intact, normal color. Absent: rash Course Vital Signs 12/12/18 12/12/18 17:12 20:49 Temperature 99.1 F 98.9 F Pulse Rate 75 76 Respiratory 18 18 Rate Blood Pressure 149/63 127/58 O2 Sat by Pulse 94 L 96 Oximetry EKG Findings - EKG Comments: EKG Findings:: EKG demonstrates a sinus rhythm with a PVC. Ventricular rate of 74. RI interval 148. QRS 82. QTC of 430. There is no acute ST segment elevations or depressions concerning for ischemic changes Medical Decision Making - Medical Decision Making Upon arrival the patient is placed in room 7. She is hooked up to continuous pulse ox and cardiac monitoring. A 12-lead EKG is performed the patient. Peripheral IV is established. Laboratory studies were conducted. We did provide the patient with 25 mg of oral meclizine. She is also given a liter bolus of 0.9% normal saline. I did recommend laboratory studies, chest x-ray and a CT of the patient's brain which the patient did agree to. Upon return the results are discussed with patient. She states her symptoms markedly improved. She does have an elevated platelet count of 635. This is compared to the bakari gallegos's previous lab results and appears to be her baseline. The patient does have a urine remarkable for a urinary tract infection. Because of this I did provide the patient with a dose Keflex. She states she feels much improved. She'll be given a prescription for Keflex to take for the next 5 days. The patient has any new or worsening symptoms she should return to the emergency room. The patient was in agreement treatment plan she is discharged home in stable condition - Lab Data Result diagrams: 12/12/18 17:17 12/12/18 17:17 Lab Results 12/12/18 12/12/18 12/12/18 Range/Units 17:17 17:17 17:17 WBC 11.3 H (3.8-10.6) k/uL RBC 4.50 (3.80-5.40) m/uL Hgb 11.7 (11.4-16.0) gm/dL Hct 35.7 (34.0-46.0) % MCV 79.4 L (80.0-100.0) fL MCH 25.9 (25.0-35.0) pg MCHC 32.7 (31.0-37.0) g/dL RDW 17.1 H (11.5-15.5) % Plt Count 635 H (150-450) k/uL Neutrophils % 74 % Lymphocytes % 17 % Monocytes % 4 % Eosinophils % 3 % Basophils % 1 % Neutrophils # 8.4 H (1.3-7.7) k/uL Lymphocytes # 1.9 (1.0-4.8) k/uL Monocytes # 0.4 (0-1.0) k/uL Eosinophils # 0.3 (0-0.7) k/uL Basophils # 0.1 (0-0.2) k/uL Anisocytosis Slight Microcytosis Slight Sodium 139 (137-145) mmol/L Potassium 4.2 (3.5-5.1) mmol/L Chloride 106 (98-107) mmol/L Carbon Dioxide 19 L (22-30) mmol/L Anion Gap 14 mmol/L BUN 13 (7-17) mg/dL Creatinine 0.64 (0.52-1.04) mg/dL Est GFR (CKD-EPI)AfAm >90 (>60 ml/min/1.73 sqM) Est GFR (CKD-EPI)NonAf >90 (>60 ml/min/1.73 sqM) Glucose 259 H (74-99) mg/dL Calcium 9.0 (8.4-10.2) mg/dL Total Bilirubin 0.3 (0.2-1.3) mg/dL AST 30 (14-36) U/L ALT 30 (9-52) U/L Alkaline Phosphatase 110 (38-126) U/L Troponin I <0.012 (0.000-0.034) ng/mL Total Protein 7.0 (6.3-8.2) g/dL Albumin 3.7 (3.5-5.0) g/dL TSH 3.590 (0.465-4.680) mIU/L Urine Color Urine Appearance (Clear) Urine pH (5.0-8.0) Ur Specific [place] (1.001-1.035) Urine Protein (Negative) Urine Glucose (UA) (Negative) Urine Ketones (Negative) Urine Blood (Negative) Urine Nitrite (Negative) Urine Bilirubin (Negative) Urine Urobilinogen (<2.0) mg/dL Ur Leukocyte Esterase (Negative) Urine RBC (0-5) /hpf Urine WBC (0-5) /hpf Urine WBC Clumps (None) /hpf Ur Squamous Epith Cells (0-4) /hpf Urine Bacteria (None) /hpf Hyaline Casts (0-2) /lpf Urine Mucus (None) /hpf Urine HCG, Qual (Not Detectd) 12/12/18 12/12/18 Range/Units 18:15 18:15 WBC (3.8-10.6) k/uL RBC (3.80-5.40) m/uL Hgb (11.4-16.0) gm/dL Hct (34.0-46.0) % MCV (80.0-100.0) fL MCH (25.0-35.0) pg MCHC (31.0-37.0) g/dL RDW (11.5-15.5) % Plt Count (150-450) k/uL Neutrophils % % Lymphocytes % % Monocytes % % Eosinophils % % Basophils % % Neutrophils # (1.3-7.7) k/uL Lymphocytes # (1.0-4.8) k/uL Monocytes # (0-1.0) k/uL Eosinophils # (0-0.7) k/uL Basophils # (0-0.2) k/uL Anisocytosis Microcytosis Sodium (137-145) mmol/L Potassium (3.5-5.1) mmol/L Chloride (98-107) mmol/L Carbon Dioxide (22-30) mmol/L Anion Gap mmol/L BUN (7-17) mg/dL Creatinine (0.52-1.04) mg/dL Est GFR (CKD-EPI)AfAm (>60 ml/min/1.73 sqM) Est GFR (CKD-EPI)NonAf (>60 ml/min/1.73 sqM) Glucose (74-99) mg/dL Calcium (8.4-10.2) mg/dL Total Bilirubin (0.2-1.3) mg/dL AST (14-36) U/L ALT (9-52) U/L Alkaline Phosphatase (38-126) U/L Troponin I (0.000-0.034) ng/mL Total Protein (6.3-8.2) g/dL Albumin (3.5-5.0) g/dL TSH (0.465-4.680) mIU/L Urine Color Yellow Urine Appearance Cloudy H (Clear) Urine pH 6.0 (5.0-8.0) Ur Specific [place] 1.020 (1.001-1.035) Urine Protein 2+ H (Negative) Urine Glucose (UA) Negative (Negative) Urine Ketones Negative (Negative) Urine Blood Negative (Negative) Urine Nitrite Positive H (Negative) Urine Bilirubin Negative (Negative) Urine Urobilinogen <2.0 (<2.0) mg/dL Ur Leukocyte Esterase Large H (Negative) Urine RBC 12 H (0-5) /hpf Urine WBC >182 H (0-5) /hpf Urine WBC Clumps Many H (None) /hpf Ur Squamous Epith Cells 10 H (0-4) /hpf Urine Bacteria Many H (None) /hpf Hyaline Casts 6 H (0-2) /lpf Urine Mucus Rare H (None) /hpf Urine HCG, Qual Not Detected (Not Detectd) Disposition Clinical Impression: Vertigo, Acute urinary tract infection Disposition: HOME SELF-CARE Condition: Stable Instructions (If sedation given, give patient instructions): Urinary Tract Infection in Women (ED) Additional Instructions: Please follow-up with your primary care doctor in 2-4 days. Return to the emergency room for any new or worsening symptoms Prescriptions: Cephalexin [Keflex] 500 mg PO BID #10 cap Is patient prescribed a controlled substance at d/c from ED?: No Referrals: Guillermo Cerda MD [Primary Care Provider] - 1-2 days Time of Disposition: 19:45
[2018-12-12] MEDS ORDERED: CEPHALEXIN 500 MG CAP PO STA (19:43)
[2018-12-12 20:51] VITALS: BP 127/58; PULSE 76; TEMP 98.9
== END 2018-12-12 20:50 | disposition home or self-care (01) ==
LOC: EC 16:41
DX: N39.0 Urinary tract infection, site not specified (principal); R42 Dizziness and giddiness; K21.9 Gastro-esophageal reflux disease without esophagitis; F17.200 Nicotine dependence, unspecified, uncomplicated; Z79.899 Other long term (current) drug therapy
CPT/HCPCS: 36415; 70450; 71046; 80053; 81001; 81025; 84443; 84484; 85025; 93005; 96360; 99285

== ENCOUNTER 2019-01-08 16:21 | Inpatient (IN) | payer MEDICARE ==
[2019-01-08] MEDS ORDERED: ONDANSETRON 4 MG/2 ML VIAL IVP STA (16:58)
[2019-01-08] MEDS ORDERED: PANTOPRAZOLE 40 MG/10 ML VIAL IVP STA (16:58)
[2019-01-08] MEDS ORDERED: KETOROLAC 30 MG/ML 1 ML VIAL IVP STA (16:58)
[2019-01-08] MEDS ORDERED: SODIUM CHLORIDE 0.9% 1,000 ML IV STA ×2 (16:58→18:51)
--- NOTE | 2019-01-08 17:03 | ED ---
Nausea/Vomiting/Diarrhea HPI - General Chief complaint: Nausea/Vomiting/Diarrhea Stated complaint: Dizziness Time Seen by Provider: 01/08/19 16:25 Source: patient, RN notes reviewed, old records reviewed Mode of arrival: EMS Limitations: no limitations - History of Present Illness Initial comments: This 48-year-old female well-known to this ER patient resents today for evaluation regards to nausea vomiting not feeling well dysuria and some abdominal pain. Patient is mildly poor historian, but is able to complain of not feeling well started today worsening throughout the day. No headache chest pain shortness breath or abdominal pain maybe some fever may be some chills. No significant swelling. MD complaint: nausea, vomiting -: hour(s) Description of Vomiting: food contents, other (none) Associated Abdominal Pain: Yes Location: epigastric Radiation: none Severity: mild Severity scale (1-10): 3 Quality: aching Improves with: none Worsens with: none Context: other Associated Symptoms: loss of appetite, nausea/vomiting, weakness - Related Data Home Medications Medication Instructions Recorded Confirmed Esomeprazole Magnesium [NexIUM] 40 mg PO DAILY 10/14/18 01/08/19 Ibuprofen [Motrin] 800 mg PO TID PRN 10/14/18 01/08/19 traMADol HCl [Ultram] 50 mg PO Q6H PRN 11/17/18 01/08/19 Acetaminophen [Tylenol Extra 500 mg PO TID PRN 01/08/19 01/08/19 Strength] Allergies Allergy/AdvReac Type Severity Reaction Status Date / Time No Known Allergies Allergy Verified 01/08/19 17:24 Review of Systems ROS Statement: Those systems with pertinent positive or pertinent negative responses have been documented in the HPI. ROS Other: All systems not noted in ROS Statement are negative. Past Medical History Past Medical History: GERD/Reflux, Hyperlipidemia Additional Past Medical History / Comment(s): Pt recently admitted to [facility] on 10/23/18 with abdominal pain/pancreatitis. Other hx: Chronic low back pain- bulging discs History of Any Multi-Drug Resistant Organisms: None Reported Past Surgical History: Tubal Ligation Additional Past Surgical History / Comment(s): Age 7 had VSD repair Past Anesthesia/Blood Transfusion Reactions: No Reported Reaction Past Psychological History: No Psychological Hx Reported Smoking Status: Current every day smoker Past Alcohol Use History: None Reported Past Drug Use History: None Reported - Past Family History Mother Family Medical History: No Reported History Additional Family Medical History / Comment(s): Mother is healthy Father Family Medical History: No Reported History Additional Family Medical History / Comment(s): Father is healthy General Exam Limitations: no limitations General appearance: alert, in no apparent distress Head exam: Present: atraumatic, normocephalic, normal inspection Eye exam: Present: normal appearance, EOMI. Absent: scleral icterus, conjunctival injection, periorbital swelling ENT exam: Present: normal exam, mucous membranes moist Neck exam: Present: normal inspection. Absent: tenderness, meningismus, lymphadenopathy Respiratory exam: Present: normal lung sounds bilaterally. Absent: respiratory distress, wheezes, rales, rhonchi, stridor Cardiovascular Exam: Present: regular rate, normal rhythm, normal heart sounds. Absent: systolic murmur, diastolic murmur, rubs, gallop, clicks GI/Abdominal exam: Present: soft, normal bowel sounds. Absent: distended, tenderness, guarding, rebound, rigid Extremities exam: Present: normal inspection, full ROM, normal capillary refill. Absent: tenderness, pedal edema, joint swelling, calf tenderness Back exam: Present: normal inspection Neurological exam: Present: alert, oriented X3, CN II-XII intact Psychiatric exam: Present: normal affect, normal mood Skin exam: Present: warm, dry, intact, normal color. Absent: rash Course Vital Signs 01/08/19 01/08/19 01/08/19 16:23 18:22 19:25 Temperature 98.6 F Pulse Rate 69 76 64 Respiratory 18 18 20 Rate Blood Pressure 154/79 137/75 144/73 O2 Sat by Pulse 98 99 96 Oximetry - Reevaluation(s) Reevaluation #1: 01/08/19 17:02 Medical record is reviewed, patient well-known to this facility for ER visits and multiple nonspecific complaints. No significant recent hospital admissions Reevaluation #2: 01/08/19 20:10 Patient found to have UTI, improving with hydration Reevaluation #3: 01/08/19 20:10 A she informed of findings, questions are answered - Consultations Consultation #1: Spoke with Dr. Cerda and is agreeable for admission Medical Decision Making - Medical Decision Making 48 male the ER for evaluation presents today for evaluation regarding nausea vomiting not feeling well urinary tract infection and lactic acidosis with dehydration. - Lab Data Result diagrams: 01/08/19 16:58 01/08/19 16:58 Lab Results 01/08/19 01/08/19 01/08/19 Range/Units 16:58 16:58 18:00 WBC 11.6 H (3.8-10.6) k/uL RBC 4.36 (3.80-5.40) m/uL Hgb 10.6 L (11.4-16.0) gm/dL Hct 35.4 (34.0-46.0) % MCV 81.1 (80.0-100.0) fL MCH 24.4 L (25.0-35.0) pg MCHC 30.0 L (31.0-37.0) g/dL RDW 16.3 H (11.5-15.5) % Plt Count 610 H (150-450) k/uL Neutrophils % 74 % Lymphocytes % 18 % Monocytes % 3 % Eosinophils % 2 % Basophils % 2 % Neutrophils # 8.6 H (1.3-7.7) k/uL Lymphocytes # 2.1 (1.0-4.8) k/uL Monocytes # 0.3 (0-1.0) k/uL Eosinophils # 0.3 (0-0.7) k/uL Basophils # 0.2 (0-0.2) k/uL Hypochromasia Slight Anisocytosis Slight Microcytosis Slight Sodium 138 (137-145) mmol/L Potassium 4.4 (3.5-5.1) mmol/L Chloride 107 (98-107) mmol/L Carbon Dioxide 19 L (22-30) mmol/L Anion Gap 12 mmol/L BUN 14 (7-17) mg/dL Creatinine 0.72 (0.52-1.04) mg/dL Est GFR (CKD-EPI)AfAm >90 (>60 ml/min/1.73 sqM) Est GFR (CKD-EPI)NonAf >90 (>60 ml/min/1.73 sqM) Glucose 281 H (74-99) mg/dL Plasma Lactic Acid [place] (0.7-2.0) mmol/L Calcium 8.7 (8.4-10.2) mg/dL Total Bilirubin 0.1 L (0.2-1.3) mg/dL AST 19 (14-36) U/L ALT 18 (9-52) U/L Alkaline Phosphatase 108 (38-126) U/L Creatine Kinase 28 L (30-135) U/L Total Protein 6.6 (6.3-8.2) g/dL Albumin 3.5 (3.5-5.0) g/dL Amylase 49 (30-110) U/L Lipase 402 H (23-300) U/L Urine Color Yellow Urine Appearance Cloudy H (Clear) Urine pH 5.5 (5.0-8.0) Ur Specific [place] 1.022 (1.001-1.035) Urine Protein 1+ H (Negative) Urine Glucose (UA) Negative (Negative) Urine Ketones Negative (Negative) Urine Blood Negative (Negative) Urine Nitrite Positive H (Negative) Urine Bilirubin Negative (Negative) Urine Urobilinogen <2.0 (<2.0) mg/dL Ur Leukocyte Esterase Large H (Negative) Urine RBC 2 (0-5) /hpf Urine WBC 179 H (0-5) /hpf Urine WBC Clumps Many H (None) /hpf Ur Squamous Epith Cells 3 (0-4) /hpf Urine Bacteria Moderate H (None) /hpf Urine Mucus Rare H (None) /hpf 01/08/19 Range/Units 18:00 WBC (3.8-10.6) k/uL RBC (3.80-5.40) m/uL Hgb (11.4-16.0) gm/dL Hct (34.0-46.0) % MCV (80.0-100.0) fL MCH (25.0-35.0) pg MCHC (31.0-37.0) g/dL RDW (11.5-15.5) % Plt Count (150-450) k/uL Neutrophils % % Lymphocytes % % Monocytes % % Eosinophils % % Basophils % % Neutrophils # (1.3-7.7) k/uL Lymphocytes # (1.0-4.8) k/uL Monocytes # (0-1.0) k/uL Eosinophils # (0-0.7) k/uL Basophils # (0-0.2) k/uL Hypochromasia Anisocytosis Microcytosis Sodium (137-145) mmol/L Potassium (3.5-5.1) mmol/L Chloride (98-107) mmol/L Carbon Dioxide (22-30) mmol/L Anion Gap mmol/L BUN (7-17) mg/dL Creatinine (0.52-1.04) mg/dL Est GFR (CKD-EPI)AfAm (>60 ml/min/1.73 sqM) Est GFR (CKD-EPI)NonAf (>60 ml/min/1.73 sqM) Glucose (74-99) mg/dL Plasma Lactic Acid [place] 3.1 H* (0.7-2.0) mmol/L Calcium (8.4-10.2) mg/dL Total Bilirubin (0.2-1.3) mg/dL AST (14-36) U/L ALT (9-52) U/L Alkaline Phosphatase (38-126) U/L Creatine Kinase (30-135) U/L Total Protein (6.3-8.2) g/dL Albumin (3.5-5.0) g/dL Amylase (30-110) U/L Lipase (23-300) U/L Urine Color Urine Appearance (Clear) Urine pH (5.0-8.0) Ur Specific [place] (1.001-1.035) Urine Protein (Negative) Urine Glucose (UA) (Negative) Urine Ketones (Negative) Urine Blood (Negative) Urine Nitrite (Negative) Urine Bilirubin (Negative) Urine Urobilinogen (<2.0) mg/dL Ur Leukocyte Esterase (Negative) Urine RBC (0-5) /hpf Urine WBC (0-5) /hpf Urine WBC Clumps (None) /hpf Ur Squamous Epith Cells (0-4) /hpf Urine Bacteria (None) /hpf Urine Mucus (None) /hpf - Radiology Data Radiology results: report reviewed (Ultrasound gallbladder negative for significant acute disease), image reviewed Disposition Clinical Impression: Lactic acidosis, Acute urinary tract infection, Dehydration Disposition: ADMITTED IP TO THIS HOSP Condition: Fair Is patient prescribed a controlled substance at d/c from ED?: No Referrals: Guillermo Cerda MD [Primary Care Provider] - 1-2 days
[2019-01-08 17:08] LABS: Anisocytosis Slight; Basophils # (A) 0.2 k/uL (0-0.2); Basophils % (A) 2 %; Eosinophils # (A) 0.3 k/uL (0-0.7); Eosinophils % (A) 2 %; HCT 35.4 % (34.0-46.0); HGB 10.6 gm/dL (11.4-16.0); Hypochromasia Slight; Lymphocytes # (A) 2.1 k/uL (1.0-4.8); Lymphocytes % (A) 18 %; MCH 24.4 pg (25.0-35.0); MCV 81.1 fL (80.0-100.0); Mean Platelet Volume 6.4; Microcytosis Slight; Monocytes # (A) 0.3 k/uL (0-1.0); Monocytes % (A) 3 %; Neutrophils # (A) 8.6 k/uL (1.3-7.7); Neutrophils % (A) 74 %; Platelet Count 610 k/uL (150-450); RBC 4.36 m/uL (3.80-5.40); RDW 16.3 % (11.5-15.5); WBC 11.6 k/uL (3.8-10.6)
[2019-01-08 17:27] LABS: ALT 18 U/L (9-52); AST 19 U/L (14-36); African American GFR (CKD) >90 (>60 ml/min/1.73 sqM); Albumin 3.5 g/dL (3.5-5.0); Alkaline Phosphatase 108 U/L (38-126); Amylase 49 U/L (30-110); Anion Gap 12 mmol/L; Blood Urea Nitrogen 14 mg/dL (7-17); Calcium 8.7 mg/dL (8.4-10.2); Carbon Dioxide 19 mmol/L (22-30); Chloride 107 mmol/L (98-107); Creatine Kinase 28 U/L (30-135); Glucose 281 mg/dL (74-99); Potassium 4.4 mmol/L (3.5-5.1); Sodium 138 mmol/L (137-145); Total Bilirubin 0.1 mg/dL (0.2-1.3); Total Protein 6.6 g/dL (6.3-8.2)
[2019-01-08 18:36] LABS: Appearance,Urine Cloudy (Clear); Bacteria,Urine Moderate /hpf; Bilirubin,Urine Negative (Negative); Blood,Urine Negative (Negative); Color,Urine Yellow; Glucose,Urine (UA) Negative (Negative); Ketones,Urine Negative (Negative); Leukocyte Esterase,Urine Large (Negative); Mucus,Urine Rare /hpf; Nitrite,Urine Positive (Negative); PH, Urine 5.5 (5.0-8.0); Protein,Urine 1+ (Negative); RBC,Urine 2 /hpf (0-5); Specific Gravity,Urine 1.022 (1.001-1.035); Squamous Epithelial Cell,Urine 3 /hpf (0-4); Urobilinogen,Urine <2.0 mg/dL (<2.0)
[2019-01-08] MEDS: SODIUM CHLORIDE 0.9% 1,000 ML IV ONE (20:30)
[2019-01-08 21:40] VITALS: BMI 43.9
[2019-01-08] MEDS: MORPHINE SULFATE 4 MG/ML SYRINGE IVP PRN (23:11)
[2019-01-09] MEDS: ENOXAPARIN 40 MG/0.4 ML SYRINGE SQ SCH (10:05)
[2019-01-09] MEDS: IBUPROFEN 800 MG TAB PO PRN (11:31)
[2019-01-09] MEDS: PANTOPRAZOLE 40 MG TABLET PO SCH (11:32)
--- NOTE | 2019-01-09 12:40 | US ---
Right upper quadrant ultrasound. History nausea and vomiting. Comparison none. FINDINGS: There is increased echogenicity in the liver consistent with fatty infiltration. There is a sonolucen t gallbladder. There is no wall thickening. There is no sign of pancreatic mass. There is no ascites. Right kidney measures 11 x 5.3 cm. There is no hydronephrosis. The bile ducts are not dilated. Commo n bile duct measures 4 mm. IMPRESSION: Fatty infiltration of the liver. No gallstones or dilated ducts. Contracted gallbladder.
[2019-01-09 18:03] LABS: Anisocytosis Slight; Basophils # (A) 0.1 k/uL (0-0.2); Basophils % (A) 1 %; Eosinophils # (A) 0.2 k/uL (0-0.7); Eosinophils % (A) 2 %; HCT 32.8 % (34.0-46.0); Hypochromasia Marked; Lymphocytes # (A) 2.7 k/uL (1.0-4.8); Lymphocytes % (A) 27 %; MCH 25.4 pg (25.0-35.0); MCHC 30.5 g/dL (31.0-37.0); MCV 83.2 fL (80.0-100.0); Mean Platelet Volume 5.8; Monocytes # (A) 0.4 k/uL (0-1.0); Monocytes % (A) 4 %; Neutrophils # (A) 6.4 k/uL (1.3-7.7); Neutrophils % (A) 64 %; Platelet Count 497 k/uL (150-450); RBC 3.94 m/uL (3.80-5.40); RDW 16.3 % (11.5-15.5); WBC 9.9 k/uL (3.8-10.6)
[2019-01-09] MEDS: traMADol 50 MG TAB PO PRN (18:04)
[2019-01-09 18:17] LABS: ALT 15 U/L (9-52); AST 22 U/L (14-36); African American GFR (CKD) >90 (>60 ml/min/1.73 sqM); Albumin 3.1 g/dL (3.5-5.0); Alkaline Phosphatase 91 U/L (38-126); Anion Gap 7 mmol/L; Blood Urea Nitrogen 13 mg/dL (7-17); Calcium 8.6 mg/dL (8.4-10.2); Carbon Dioxide 24 mmol/L (22-30); Chloride 108 mmol/L (98-107); Glucose 181 mg/dL (74-99); Potassium 4.6 mmol/L (3.5-5.1); Sodium 139 mmol/L (137-145); Total Bilirubin 0.2 mg/dL (0.2-1.3); Total Protein 6.1 g/dL (6.3-8.2)
--- NOTE | 2019-01-09 20:04 | HP ---
HISTORY AND PHYSICAL CHIEF COMPLAINT: Acute abdominal pain, urinary tract infection and lactic acidosis. HISTORY OF PRESENT ILLNESS: This 48-year-old white female presented back to the emergency room with abdominal discomfort and was found to have a urinary tract infection. Her lactic acid was elevated above 3. She had some nausea and vomited a few times, but no diarrhea. She does have diabetes. REVIEW OF SYSTEMS: She has had no neurologic problems. She has a slight headache. She has had no change in vision or hearing. She has had no cough, hemoptysis, shortness of breath, heart disease, murmurs, rheumatic fever, orthopnea, PND, hematemesis, melena, hematochezia, jaundice, renal failure, significant arthritis, etc. Past medical history, family history, and personal and social histories are essentially unremarkable. She is NOT ALLERGIC TO ANY MEDICATION. She is on: 1. Metformin 500 mg once a day. 2. Tramadol 50 mg q.6 p.r.n. 3. Nexium 20 once a day. 4. Ibuprofen 800 mg 4 times a day p.r.n. She does smoke, but she does not drink. PHYSICAL EXAMINATION: Blood pressure 118/62 with a pulse 68 and respirations of 16. She is afebrile. In general she appears to be overweight and slightly pale. Skin is dry. Head, ears, eyes, nose, mouth and throat are normal. Neck is supple. Chest is clear. Cardiac exam is normal. The abdomen is protuberant, soft, and she has mild generalized tenderness throughout. Bowel sounds are present. There are no masses. Extremities are normal. Neurologically she is intact. She is admitted to the hospital with the diagnoses: 1. Urinary tract infection. 2. Rule out sepsis. 3. Hypertension. 4. Type 2 [id number] diabetes mellitus. PLAN: 1. Bed rest. 2. IV antibiotics. 3. Antiemetics. 4. Monitor blood sugars. MMODL / IJN: [id number] /
--- NOTE | 2019-01-09 20:23 | PN ---
PROGRESS NOTE CHIEF COMPLAINT: Abdominal pain, urinary tract infection, elevated lactic acid and headache. HISTORY OF PRESENT ILLNESS: This lady is doing fairly well, but she has developed a headache. She has had no nausea. She has had no fever or chills. PHYSICAL EXAMINATION: Neck is supple. Chest is clear. Cardiac exam is normal. Abdomen is soft, nontender. IMPRESSION: 1. Urinary tract infection. 2. Elevated lactic acid. 3. Diabetes. 4. Headache. PLAN: 1. Treat her headache with analgesics. 2. IV fluids and antibiotics. 3. Repeat lactic acid. MMODL / IJN: [id number] /
[2019-01-10] MEDS: SODIUM CHLORIDE 0.9% 1,000 ML IV ONE (01:31)
[2019-01-10] MEDS: PANTOPRAZOLE 40 MG TABLET PO SCH (07:18)
[2019-01-10] MEDS: ENOXAPARIN 40 MG/0.4 ML SYRINGE SQ SCH (08:23)
[2019-01-10] MEDS: traMADol 50 MG TAB PO PRN (08:24)
--- NOTE | 2019-01-10 15:26 | PN ---
PROGRESS NOTE CHIEF COMPLAINT: Urinary tract infection and abdominal pain. HISTORY OF PRESENT ILLNESS: This lady is feeling much better. She is not running a fever. Her abdominal discomfort is improving. Blood sugars are fairly high, however, and her hemoglobin is noted to be at 10. PHYSICAL EXAM: Her color is good. Chest is clear. Cardiac exam is normal. Abdomen is very protuberant and nontender. Extremities are normal. IMPRESSION: 1. Urinary tract infection. 2. Dehydration. 3. Elevated blood sugars. 4. Anemia. PLAN: Would continue with current treatment and continue to monitor her blood sugars and repeat her hemoglobin in 2 days. MMODL / IJN: [id number] /
[2019-01-10] MEDS: MORPHINE SULFATE 4 MG/ML SYRINGE IVP PRN (17:59)
[2019-01-11] MEDS: IBUPROFEN 800 MG TAB PO PRN ×2 (04:50→21:09)
[2019-01-11] MEDS: ENOXAPARIN 40 MG/0.4 ML SYRINGE SQ SCH (08:20)
[2019-01-11] MEDS: PANTOPRAZOLE 40 MG TABLET PO SCH (08:20)
[2019-01-11] MEDS: traMADol 50 MG TAB PO PRN ×2 (08:28→18:28)
[2019-01-11 13:42] LABS: Anisocytosis Slight; Basophils # (A) 0.1 k/uL (0-0.2); Basophils % (A) 1 %; Eosinophils # (A) 0.2 k/uL (0-0.7); Eosinophils % (A) 2 %; HCT 31.8 % (34.0-46.0); HGB 9.6 gm/dL (11.4-16.0); Hypochromasia Moderate; Lymphocytes # (A) 2.4 k/uL (1.0-4.8); Lymphocytes % (A) 28 %; MCH 24.8 pg (25.0-35.0); MCHC 30.2 g/dL (31.0-37.0); MCV 82.2 fL (80.0-100.0); Mean Platelet Volume 6.3; Monocytes # (A) 0.3 k/uL (0-1.0); Monocytes % (A) 4 %; Neutrophils # (A) 5.3 k/uL (1.3-7.7); Neutrophils % (A) 64 %; Platelet Count 449 k/uL (150-450); RBC 3.87 m/uL (3.80-5.40); WBC 8.4 k/uL (3.8-10.6)
[2019-01-11 13:57] LABS: African American GFR (CKD) >90 (>60 ml/min/1.73 sqM); Anion Gap 10 mmol/L; Blood Urea Nitrogen 14 mg/dL (7-17); Calcium 8.6 mg/dL (8.4-10.2); Carbon Dioxide 24 mmol/L (22-30); Chloride 102 mmol/L (98-107); Glucose 178 mg/dL (74-99); Potassium 4.4 mmol/L (3.5-5.1); Sodium 136 mmol/L (137-145)
[2019-01-11] MEDS: IOPAMIDOL CONTRAST (ORAL USE) VIAL PO PRN ×2 (14:05→14:59)
--- NOTE | 2019-01-11 15:57 | CT ---
EXAMINATION TYPE: CT abdomen pelvis w con DATE OF EXAM: 01/11/2019 COMPARISON: 10/23/2018 HISTORY: Abdominal pain CT DLP: 1979.6 mGycm Automated exposure control for dose reduction was used. TECHNIQUE: Helical acquisition of images was performed from the lung bases through the pelvis. CONTRAST: Performed with Oral Contrast and with IV Contrast, patient injected with 100 mL of Isovue 300. FINDINGS: Lung bases are clear of infiltrate. Heart is enlarged. There is no pleural effusion. There is small hiatal hernia. Liver spleen pancreas gallbladder appear normal. Bile ducts are not dil ated. There is no adrenal mass. Kidneys show satisfactory contrast opacification. There is no hydronephrosi s. The delayed images show small areas of decreased cortical contrast opacification of the right kidn ey. Right kidney is slightly larger than the left. There is no retroperitoneal adenopathy. Ureters ar e not dilated. There is slight decreased contrast density on the delayed images in the right renal co llecting system compared to the left. Bladder distends smoothly. There is no inguinal hernia. Uterus is anteverted. There is no free fluid in the pelvis. There is no sign of a bowel obstruction. There is subcutaneous edema around the abdome n. There is no mesenteric edema. There is no ascites or free air. There is no sign of thickened appen yudith. Lumbar spine is intact. Bony pelvis appears intact. IMPRESSION: SUBCUTANEOUS EDEMA. PATCHY AREAS OF DECREASED CORTICAL ENHANCEMENT RIGHT KIDNEY COULD RELATE TO PYELONEPHRITIS THAT IS MO RE NOTICEABLE THAN OLD CT SCAN. NO RENAL OBSTRUCTION. SLIGHT DELAYED DECREASED CONTRAST IN THE COLLEC TING SYSTEMS RAISES THE POSSIBILITY OF SOME DEGREE OF RENAL FAILURE.
[2019-01-11 17:00] LABS: Glucose,Whole Blood 142 mg/dL (75-99)
--- NOTE | 2019-01-11 19:43 | PN ---
PROGRESS NOTE CHIEF COMPLAINT: Abdominal pain and urinary tract infection. HISTORY OF PRESENT ILLNESS: This lady started to have more abdominal pain during the night and this morning. It is not related to urination. It is in the mid lower abdomen. She has had no vomiting or diarrhea and she has had no chills or fever. PHYSICAL EXAM: Abdomen is soft and protuberant. There is very little or no tenderness in the lower abdomen. Bowel sounds are present. IMPRESSION: 1. Recurrent abdominal pain. 2. Urinary tract infection. PLAN: Repeat laboratory studies and hold discharge for one more day. MMODL / IJN: [id number] /
[2019-01-11 21:06] LABS: Glucose,Whole Blood 125 mg/dL (75-99)
[2019-01-12 06:56] LABS: Glucose,Whole Blood 127 mg/dL (75-99)
[2019-01-12] MEDS: PANTOPRAZOLE 40 MG TABLET PO SCH (06:56)
[2019-01-12] MEDS: ENOXAPARIN 40 MG/0.4 ML SYRINGE SQ SCH (08:07)
[2019-01-12 12:27] LABS: Glucose,Whole Blood 166 mg/dL (75-99)
[2019-01-12 12:51] VITALS: BP 167/93; PULSE 47; RESP 20; TEMP 97.5
[2019-01-12] MEDS ORDERED: AMOXIC-POT CLAV 875-125MG 1 EACH TAB PO SCH (21:00)
--- NOTE | 2019-01-12 23:47 | DS ---
DISCHARGE SUMMARY CHIEF COMPLAINT: Abdominal pain, urinary tract infection with elevated lactic acid. HISTORY OF PRESENT ILLNESS AND PHYSICAL EXAMINATION: Details of this lady's history and physical can be found in the initial workup. LABORATORY STUDIES: While she was in the hospital, she had laboratory studies, details of which can be found in the laboratory section of her chart. COURSE IN THE HOSPITAL: After admission she was placed on bedrest, started on intravenous fluids and antibiotics. During her hospitalization she continued to complain of lower abdominal discomfort and had tenderness. Her lipase was also elevated, and the reason for this is not clear. It was coming down very slowly. She was doing well enough that it was felt that she could go home on January 12, and she will be followed in the office for further evaluation of her pain and elevated lipase. FINAL DIAGNOSES: 1. Urinary tract infection. 2. Pancreatitis. OPERATIONS: None. CONSULTATIONS: None. She is improved. MMJOHANL / GOOD: [id number] /
--- NOTE | 2019-01-19 18:12 | CDI ---
Documentation Clarification Form Date: 01/19/19 From: Danyelle Dietrich Phone: If you have a question regarding this query, please contact Miguelina Laughlin at [phone] between 8am and 5pm. Admit Date: 01/11/2019 8:43:00 AM Patient Name: Dayna Le Visit Number: [id number] Discharge Date: 01/12/2019 1:00:00 PM ATTENTION: The Clinical Documentation Specialists (CDI) and [facility] Coding Staff appreciate your assistance in clarifying documentation. Please respond to the clarification below the line at the bottom and electronically sign. The CDI & [facility] Coding staff will review the response and follow-up if needed. Please note: Queries are made part of the Legal Health Record. If you have any questions, please contact the author of this message via ITS. Dr. Guillermo Cerda The patient presented with a UTI, headache and lactic acidosis. Rule out sepsis was documented in the H&P but not further addressed in the remainder of the chart. History/Risk Factors: UTI Clinical Indicators: Lactic acidosis, elevated WBC WBC: 11.6 Lactic acid: 3.1 on admit then down to 1.6 the same day. Blood cultures: Not done Vitals signs on admission: T. 98.6, P. 69, R. 18, BP 154/79 Treatment: Antibiotics: IV Rocephin IV Bolus: 2 liters then at 100 mls/hr In your professional opinion, please clarify if these findings signify one of the following conditions: Condition Sepsis ruled out SIRS, without underlying infectious process Sepsis Other, please specify Unable to determine Identify the (suspected) organism [id number]
--- NOTE | 2019-02-06 15:14 | MISC ---
MISCELLANOUS REPORT Sepsis was ruled out. MMODL / IJN: [id number] /
== END 2019-01-12 13:00 | disposition home or self-care (01) | DRG 689 ==
LOC: EC 16:21 → 6PED 20:08 → OBSVTOIN 01-11 08:43
PROVIDERS: ADMIT Family Medicine; ATTEND Family Medicine
DX: N39.0 Urinary tract infection, site not specified (principal); K85.90 Acute pancreatitis without necrosis or infection, unspecified; E87.2 Acidosis; E11.65 Type 2 diabetes mellitus with hyperglycemia; R51 Headache; K21.9 Gastro-esophageal reflux disease without esophagitis; F17.200 Nicotine dependence, unspecified, uncomplicated; E86.0 Dehydration; E78.5 Hyperlipidemia, unspecified; D64.9 Anemia, unspecified; G89.29 Other chronic pain; M54.5 Low back pain; Z98.51 Tubal ligation status; Z79.84 Long term (current) use of oral hypoglycemic drugs; Z79.1 Long term (current) use of non-steroidal anti-inflammatories (NSAID); Z79.899 Other long term (current) drug therapy
CPT/HCPCS: 36415; 74177; 76705; 80048; 80053; 81001; 82150; 82550; 83605; 83690; 85025; 87077; 87086; 87186; 96361; 96374; 96375; 99285

== ENCOUNTER 2019-01-15 16:52 | Emergency (ER) | payer MEDICARE ==
[2019-01-15 17:04] VITALS: RESP 18
[2019-01-15] MEDS ORDERED: SODIUM CHLORIDE 0.9% 500 ML 500 ML IV STA (18:13)
[2019-01-15] MEDS ORDERED: ONDANSETRON 4 MG/2 ML VIAL IVP STA (18:13)
[2019-01-15] MEDS ORDERED: IPRATROPIUM-ALBUTEROL 3 ML NEB INHALATION STA (18:15)
[2019-01-15 18:29] LABS: Anisocytosis Slight; Basophils # (A) 0.2 k/uL (0-0.2); Basophils % (A) 1 %; Eosinophils # (A) 0.3 k/uL (0-0.7); Eosinophils % (A) 3 %; HCT 34.8 % (34.0-46.0); HGB 10.7 gm/dL (11.4-16.0); Hypochromasia Slight; Lymphocytes # (A) 2.9 k/uL (1.0-4.8); Lymphocytes % (A) 23 %; MCH 24.8 pg (25.0-35.0); MCHC 30.9 g/dL (31.0-37.0); MCV 80.4 fL (80.0-100.0); Mean Platelet Volume 6.6; Microcytosis Slight; Monocytes # (A) 0.5 k/uL (0-1.0); Monocytes % (A) 4 %; Neutrophils # (A) 8.6 k/uL (1.3-7.7); Neutrophils % (A) 68 %; Platelet Count 605 k/uL (150-450); RBC 4.32 m/uL (3.80-5.40); RDW 16.6 % (11.5-15.5); WBC 12.6 k/uL (3.8-10.6)
[2019-01-15 18:34] LABS: Appearance,Urine Clear (Clear); Bacteria,Urine Rare /hpf; Bilirubin,Urine Negative (Negative); Blood,Urine Trace (Negative); Color,Urine Light Yellow; Glucose,Urine (UA) Negative (Negative); Ketones,Urine Negative (Negative); Leukocyte Esterase,Urine Negative (Negative); Mucus,Urine Rare /hpf; Nitrite,Urine Negative (Negative); Protein,Urine Trace (Negative); RBC,Urine <1 /hpf (0-5); Specific Gravity,Urine 1.006 (1.001-1.035); Squamous Epithelial Cell,Urine 2 /hpf (0-4); Urobilinogen,Urine <2.0 mg/dL (<2.0)
[2019-01-15 18:43] LABS: ALT 22 U/L (9-52); AST 22 U/L (14-36); African American GFR (CKD) >90 (>60 ml/min/1.73 sqM); Albumin 3.8 g/dL (3.5-5.0); Alkaline Phosphatase 98 U/L (38-126); Anion Gap 13 mmol/L; Blood Urea Nitrogen 13 mg/dL (7-17); Calcium 8.7 mg/dL (8.4-10.2); Carbon Dioxide 20 mmol/L (22-30); Chloride 103 mmol/L (98-107); D-Dimer 0.52 mg/L FEU (<0.60); Glucose 172 mg/dL (74-99); INR 0.9 (<1.2); Potassium 4.6 mmol/L (3.5-5.1); Prothrombin Time 9.6 sec (9.0-12.0); Sodium 136 mmol/L (137-145); Total Bilirubin 0.2 mg/dL (0.2-1.3)
--- NOTE | 2019-01-15 18:44 | ED ---
General Adult HPI - General Chief complaint: Dizziness Stated complaint: DIZZY Time Seen by Provider: 01/15/19 17:00 Source: patient Mode of arrival: EMS Limitations: no limitations - History of Present Illness Initial comments: The patient is a 48 year old female who presents to the emergency room with reported presyncopal sensation. The patient reports that she gets up from her recliner and she has a sensation that she is going to pass out. Reports that the symptoms will persist until she sits back down. She has had a history of this in the past. She was instructed to follow up with cardiology however reports that she didn't. Patient was recently discharged from the hospital for a urinary tract infection. States that she is currently on antibiotics. She admits to increased frequency of urination. Denies dysuria or hematuria. Denies any constipation, melanotic stools, hematochezia or diarrhea. No headaches or visual changes. No fevers or chills. Denies any chest pain or shortness of breath. No syncopal episodes. It is provoked with positional changes. Denies vertiginous symptoms. No ataxia. No unilateral numbness or weakness. No report of slurred speech or confusion. There are no alleviating, precipitating or modifying factors - Related Data Home Medications Medication Instructions Recorded Confirmed Ibuprofen [Motrin] 800 mg PO Q6H PRN 10/14/18 01/15/19 Amoxic-Pot Clav 875-125Mg 1 tab PO Q12HR 01/15/19 01/15/19 [Augmentin 875-125] Esomeprazole Magnesium [NexIUM] 20 mg PO DAILY 01/15/19 01/15/19 Allergies Allergy/AdvReac Type Severity Reaction Status Date / Time No Known Allergies Allergy Verified 01/15/19 18:45 Review of Systems ROS Statement: Those systems with pertinent positive or pertinent negative responses have been documented in the HPI. ROS Other: All systems not noted in ROS Statement are negative. Past Medical History Past Medical History: GERD/Reflux, Hyperlipidemia Additional Past Medical History / Comment(s): Pt recently admitted to [facility] on 10/23/18 with abdominal pain/pancreatitis. Other hx: Chronic low back pain- bulging discs History of Any Multi-Drug Resistant Organisms: None Reported Past Surgical History: Tubal Ligation Additional Past Surgical History / Comment(s): Age 7 had VSD repair Past Anesthesia/Blood Transfusion Reactions: No Reported Reaction Past Psychological History: No Psychological Hx Reported Smoking Status: Current every day smoker Past Alcohol Use History: None Reported Past Drug Use History: None Reported - Past Family History Mother Family Medical History: No Reported History Additional Family Medical History / Comment(s): Mother is healthy Father Family Medical History: No Reported History Additional Family Medical History / Comment(s): Father is healthy General Exam Limitations: no limitations General appearance: alert, in no apparent distress Head exam: Present: atraumatic, normocephalic, normal inspection Eye exam: Present: normal appearance, PERRL, EOMI. Absent: scleral icterus, conjunctival injection, periorbital swelling ENT exam: Present: normal exam, mucous membranes moist Neck exam: Present: normal inspection. Absent: tenderness, meningismus, lymphadenopathy Respiratory exam: Present: normal lung sounds bilaterally. Absent: respiratory distress, wheezes, rales, rhonchi, stridor Cardiovascular Exam: Present: regular rate, normal rhythm, normal heart sounds. Absent: systolic murmur, diastolic murmur, rubs, gallop, clicks GI/Abdominal exam: Present: soft, normal bowel sounds. Absent: distended, tenderness, guarding, rebound, rigid Extremities exam: Present: normal inspection, full ROM, normal capillary refill. Absent: tenderness, pedal edema, joint swelling, calf tenderness Back exam: Present: normal inspection Neurological exam: Present: alert, oriented X3, CN II-XII intact Psychiatric exam: Present: normal affect, normal mood Skin exam: Present: warm, dry, intact, normal color. Absent: rash Course Vital Signs 01/15/19 01/15/19 01/15/19 16:55 17:47 18:32 Temperature 99.3 F Pulse Rate 59 L Pulse Rate [ 50 L Right Sitting] Pulse Rate [ 66 Right Standing] Pulse Rate [ 55 L Right Supine Retail Planner ] Pulse Rate [ 55 L Right Supine] Respiratory 18 18 18 Rate Blood Pressure 167/87 Blood Pressure 154/76 [Right Arm Sitting] Blood Pressure 155/86 [Right Arm Standing] Blood Pressure 148/68 [Right Arm Supine] O2 Sat by Pulse 97 Oximetry 01/15/19 01/15/19 01/15/19 18:40 18:50 21:03 Temperature Pulse Rate 61 56 L 54 L Pulse Rate [ Right Sitting] Pulse Rate [ Right Standing] Pulse Rate [ Right Supine Retail Planner ] Pulse Rate [ Right Supine] Respiratory 18 Rate Blood Pressure 149/63 Blood Pressure [Right Arm Sitting] Blood Pressure [Right Arm Standing] Blood Pressure [Right Arm Supine] O2 Sat by Pulse 98 Oximetry 01/15/19 21:54 Temperature 98.3 F Pulse Rate 53 L Pulse Rate [ Right Sitting] Pulse Rate [ Right Standing] Pulse Rate [ Right Supine Retail Planner ] Pulse Rate [ Right Supine] Respiratory 18 Rate Blood Pressure 141/66 Blood Pressure [Right Arm Sitting] Blood Pressure [Right Arm Standing] Blood Pressure [Right Arm Supine] O2 Sat by Pulse 97 Oximetry EKG Findings - EKG Comments: EKG Findings:: EKG demonstrates a sinus bradycardia with occasional premature ventricular complexes. Rate of 58. HI interval 156. QRS 78. QTC 431. There are no acute ST segment elevations or depressions concerning for ischemic changes Medical Decision Making - Medical Decision Making Upon arrival the patient is placed into room 5. A thorough history and physical exam was performed. I did recommend orthostatics. These are performed and are negative. I also recommended laboratory studies. Platelets are 605. These are chronically elevated. D-dimer is elevated at 0.52. Urine analysis shows rare bacteria. His the patient's elevated d-dimer I did recommend sending the patient over for a CT PE study. This is performed and demonstrates no evidence of pulmonary embolism. I discussed these results with the patient. I did inform her that she needs to follow up with cardiology and have an echo performed of her heart. The patient understands this. She will be given follow-up information for the [facility]. She has an appointment to see her primary care physician and I do recommend that she call and make sure that this is done within the next 2-4 days. If the patient has any new or worsening symptoms she should return to the emergency room. The patient was discharged home in stable condition - Lab Data Result diagrams: 01/15/19 18:01/15/19 18: Lab Results 01/15/19 01/15/19 01/15/19 Range/Units 18:19 18:19 18: WBC 12.6 H (3.8-10.6) k/uL RBC 4.32 (3.80-5.40) m/uL Hgb 10.7 L (11.4-16.0) gm/dL Hct 34.8 (34.0-46.0) % MCV 80.4 (80.0-100.0) fL MCH 24.8 L (25.0-35.0) pg MCHC 30.9 L (31.0-37.0) g/dL RDW 16.6 H (11.5-15.5) % Plt Count 605 H (150-450) k/uL Neutrophils % 68 % Lymphocytes % 23 % Monocytes % 4 % Eosinophils % 3 % Basophils % 1 % Neutrophils # 8.6 H (1.3-7.7) k/uL Lymphocytes # 2.9 (1.0-4.8) k/uL Monocytes # 0.5 (0-1.0) k/uL Eosinophils # 0.3 (0-0.7) k/uL Basophils # 0.2 (0-0.2) k/uL Hypochromasia Slight Anisocytosis Slight Microcytosis Slight PT (9.0-12.0) sec INR (<1.2) D-Dimer (<0.60) mg/L FEU Sodium 136 L (137-145) mmol/L Potassium 4.6 (3.5-5.1) mmol/L Chloride 103 (98-107) mmol/L Carbon Dioxide 20 L (22-30) mmol/L Anion Gap 13 mmol/L BUN 13 (7-17) mg/dL Creatinine 0.75 (0.52-1.04) mg/dL Est GFR (CKD-EPI)AfAm >90 (>60 ml/min/1.73 sqM) Est GFR (CKD-EPI)NonAf >90 (>60 ml/min/1.73 sqM) Glucose 172 H (74-99) mg/dL Calcium 8.7 (8.4-10.2) mg/dL Total Bilirubin 0.2 (0.2-1.3) mg/dL AST 22 (14-36) U/L ALT 22 (9-52) U/L Alkaline Phosphatase 98 (38-126) U/L Troponin I (0.000-0.034) ng/mL Total Protein 7.0 (6.3-8.2) g/dL Albumin 3.8 (3.5-5.0) g/dL Urine Color Light Yellow Urine Appearance Clear (Clear) Urine pH 6.0 (5.0-8.0) Ur Specific [place] 1.006 (1.001-1.035) Urine Protein Trace H (Negative) Urine Glucose (UA) Negative (Negative) Urine Ketones Negative (Negative) Urine Blood Trace H (Negative) Urine Nitrite Negative (Negative) Urine Bilirubin Negative (Negative) Urine Urobilinogen <2.0 (<2.0) mg/dL Ur Leukocyte Esterase Negative (Negative) Urine RBC <1 (0-5) /hpf Urine WBC 1 (0-5) /hpf Ur Squamous Epith Cells 2 (0-4) /hpf Urine Bacteria Rare H (None) /hpf Urine Mucus Rare H (None) /hpf 01/15/19 01/15/19 Range/Units 18:19 18:19 WBC (3.8-10.6) k/uL RBC (3.80-5.40) m/uL Hgb (11.4-16.0) gm/dL Hct (34.0-46.0) % MCV (80.0-100.0) fL MCH (25.0-35.0) pg MCHC (31.0-37.0) g/dL RDW (11.5-15.5) % Plt Count (150-450) k/uL Neutrophils % % Lymphocytes % % Monocytes % % Eosinophils % % Basophils % % Neutrophils # (1.3-7.7) k/uL Lymphocytes # (1.0-4.8) k/uL Monocytes # (0-1.0) k/uL Eosinophils # (0-0.7) k/uL Basophils # (0-0.2) k/uL Hypochromasia Anisocytosis Microcytosis PT 9.6 (9.0-12.0) sec INR 0.9 (<1.2) D-Dimer 0.52 (<0.60) mg/L FEU Sodium (137-145) mmol/L Potassium (3.5-5.1) mmol/L Chloride (98-107) mmol/L Carbon Dioxide (22-30) mmol/L Anion Gap mmol/L BUN (7-17) mg/dL Creatinine (0.52-1.04) mg/dL Est GFR (CKD-EPI)AfAm (>60 ml/min/1.73 sqM) Est GFR (CKD-EPI)NonAf (>60 ml/min/1.73 sqM) Glucose (74-99) mg/dL Calcium (8.4-10.2) mg/dL Total Bilirubin (0.2-1.3) mg/dL AST (14-36) U/L ALT (9-52) U/L Alkaline Phosphatase (38-126) U/L Troponin I <0.012 (0.000-0.034) ng/mL Total Protein (6.3-8.2) g/dL Albumin (3.5-5.0) g/dL Urine Color Urine Appearance (Clear) Urine pH (5.0-8.0) Ur Specific [place] (1.001-1.035) Urine Protein (Negative) Urine Glucose (UA) (Negative) Urine Ketones (Negative) Urine Blood (Negative) Urine Nitrite (Negative) Urine Bilirubin (Negative) Urine Urobilinogen (<2.0) mg/dL Ur Leukocyte Esterase (Negative) Urine RBC (0-5) /hpf Urine WBC (0-5) /hpf Ur Squamous Epith Cells (0-4) /hpf Urine Bacteria (None) /hpf Urine Mucus (None) /hpf Disposition Clinical Impression: Pre-syncope Disposition: HOME SELF-CARE Condition: Stable Instructions (If sedation given, give patient instructions): Near Syncope (ED) Additional Instructions: Please follow-up with your primary care doctor in 2-4 days. Return to the emergency room for any new or worsening symptoms. I do recommend you see a brewing director and have an echo of your heart performed Is patient prescribed a controlled substance at d/c from ED?: No Referrals: Guillermo Cerda MD [Primary Care Provider] - 1-2 days [facility] [Provider Group] - 1-2 days Time of Disposition: 21:40
--- NOTE | 2019-01-15 18:55 | XR ---
EXAMINATION TYPE: XR chest 2V DATE OF EXAM: 01/15/2019 COMPARISON: 12/12/2018 HISTORY: Dizziness TECHNIQUE: Frontal and lateral views of the chest are obtained. FINDINGS: Heart and mediastinum are normal. Lungs are clear. Diaphragm is normal. Bony thorax appear s intact. IMPRESSION: Normal chest. No change.
--- NOTE | 2019-01-15 20:37 | CT ---
EXAMINATION TYPE: CT chest angio for PE DATE OF EXAM: 01/15/2019 COMPARISON: None HISTORY: Elevated d-dimer, SOB. CT DLP: 556.7 mGycm Automated exposure control for dose reduction was used. CONTRAST: CT Chest for pulmonary embolism performed with with IV Contrast, patient injected with 100 mL of Isov ue 370. FINDINGS: There are 3-D post processed images. The lungs are clear of consolidation. There is mild groundglass interstitial density in the mid and l ower lung chandler. Heart appears enlarged. There is no pericardial effusion. There is no pleural effus ion. There is small hiatal hernia. There is no mediastinal adenopathy. There are no hilar masses. The re is normal contrast opacification of the pulmonary arteries. There are no filling defects. I see no bony destructive process. The bony thorax is intact. IMPRESSION: No evidence of pulmonary embolism. Minimal nonspecific pulmonary interstitial infiltrates.
[2019-01-15 21:55] VITALS: BP 141/66; PULSE 53; TEMP 98.3
== END 2019-01-15 21:54 | disposition home or self-care (01) ==
LOC: EC 16:52
DX: R55 Syncope and collapse (principal); R42 Dizziness and giddiness; R35.0 Frequency of micturition; R79.89 Other specified abnormal findings of blood chemistry; K21.9 Gastro-esophageal reflux disease without esophagitis; E78.5 Hyperlipidemia, unspecified; F17.200 Nicotine dependence, unspecified, uncomplicated; Z79.899 Other long term (current) drug therapy
CPT/HCPCS: 36415; 94640; 93005; 85379; 80053; 84484; 85025; 85610; 81001; 71046; 71275; 99285; 96374; 96361; J2405; Q9967

== ENCOUNTER 2019-01-24 14:09 | Emergency (ER) | payer MEDICARE ==
[2019-01-24 14:21] VITALS: TEMP 99.3
[2019-01-24] MEDS ORDERED: ONDANSETRON 4 MG/2 ML VIAL IVP STA (15:04)
[2019-01-24] MEDS ORDERED: SODIUM CHLORIDE 0.9% 1,000 ML IV STA (15:04)
[2019-01-24] MEDS ORDERED: DICYCLOMINE 10 MG CAP PO STA (15:04)
[2019-01-24] MEDS ORDERED: FAMOTIDINE 20 MG/2 ML VIAL IV STA (15:04)
--- NOTE | 2019-01-24 15:08 | ED ---
General Adult HPI - General Chief complaint: Nausea/Vomiting/Diarrhea Stated complaint: DIZZINESS, NAUSEA Time Seen by Provider: 01/24/19 14:41 Source: patient, EMS Mode of arrival: EMS Limitations: no limitations - History of Present Illness Initial comments: Patient is a 48-year-old female with history of type 2 diabetes presenting to the emergency department with a chief complaint of nausea and abdominal pain. Patient reports she developed gradual onset of nausea with no vomiting and diarrhea about 3 days ago. Patient reports she also had umbilical and epigastric pain at the same time. Patient reports pain is a 6 and cramping in nature. Patient reports over the course of the day that resolved. Patient reports very similar symptoms appear today. Patient is also complaining of lightheadedness and a headache. Patient reports she took ibuprofen with no improvement. Patient reports the abdominal pain is not related to any oral intake. Patient also reports having chills and night sweats but never actually obtain a temperature. Patient denies shortness of breath, chest pain or chest palpitations. - Related Data Home Medications Medication Instructions Recorded Confirmed Ibuprofen [Motrin] 800 mg PO Q6H PRN 10/14/18 01/24/19 Esomeprazole Magnesium [NexIUM] 20 mg PO DAILY 01/15/19 01/24/19 traMADol HCL [Ultram] 50 mg PO TID PRN 01/24/19 01/24/19 Previous Rx's Medication Instructions Recorded Dicyclomine [Bentyl] 20 mg PO TID #30 tablet 01/24/19 Ondansetron Odt [Zofran Odt] 4 mg PO Q8HR PRN #10 tab 01/24/19 Allergies Allergy/AdvReac Type Severity Reaction Status Date / Time No Known Allergies Allergy Verified 01/24/19 14:19 Review of Systems ROS Statement: Those systems with pertinent positive or pertinent negative responses have been documented in the HPI. ROS Other: All systems not noted in ROS Statement are negative. Past Medical History Past Medical History: GERD/Reflux, Hyperlipidemia Additional Past Medical History / Comment(s): Pt recently admitted to [facility] on with abdominal pain/pancreatitis. Other hx: Chronic low back pain- bulging discs History of Any Multi-Drug Resistant Organisms: None Reported Past Surgical History: Tubal Ligation Additional Past Surgical History / Comment(s): Age 7 had VSD repair Past Anesthesia/Blood Transfusion Reactions: No Reported Reaction Past Psychological History: No Psychological Hx Reported Smoking Status: Current every day smoker Past Alcohol Use History: None Reported Past Drug Use History: None Reported - Past Family History Mother Family Medical History: No Reported History Additional Family Medical History / Comment(s): Mother is healthy Father Family Medical History: No Reported History Additional Family Medical History / Comment(s): Father is healthy General Exam Limitations: no limitations General appearance: alert, in no apparent distress, obese Head exam: Present: atraumatic, normocephalic, normal inspection Eye exam: Present: normal appearance Pupils: Present: normal accommodation ENT exam: Present: normal exam, mucous membranes moist, normal external ear exam Neck exam: Present: normal inspection, full ROM Respiratory exam: Present: normal lung sounds bilaterally Cardiovascular Exam: Present: regular rate, normal rhythm, normal heart sounds GI/Abdominal exam: Present: soft, tenderness (Epigastric and umbilical tenderness to palpation.), normal bowel sounds. Absent: guarding, rebound, rigid Extremities exam: Present: normal inspection, full ROM, normal capillary refill Back exam: Present: normal inspection, full ROM. Absent: tenderness, CVA tenderness (R), CVA tenderness (L) Neurological exam: Present: alert, oriented X3 Psychiatric exam: Present: normal affect, normal mood Skin exam: Present: warm, intact, normal color Course Vital Signs 01/24/19 01/24/19 14:18 16:58 Temperature 99.3 F Pulse Rate 63 74 Respiratory 19 16 Rate Blood Pressure 141/69 140/72 O2 Sat by Pulse 98 98 Oximetry Medical Decision Making - Medical Decision Making patient is [id number] female presenting to the emergency department with a chief complaint of abdominal pain. Patient has had initial episode of epigastric and upper local abdominal pain with nausea no vomiting for the past day. The pain does not appear to be related to oral intake. Patient has not any fevers or chills. Patient was evaluated for similar reason in the ED and had a CAT scan obtained about 12 days ago which reveals possible pyelonephritis otherwise no other intra-abdominal pathology. Patient has no UTI symptoms at this time. UA is negative. CBC does indicate leukocytosis of 14.8k. Labs also indicate elevation in platelets although this appears to be her baseline. KUB and chest x-ray was unremarkable. Patient is a smoker. On reevaluation patient reports improvement in nausea and abdominal symptoms. I suspect this to be gastritis. Patient given fluids, Bentyl, antiemetics and analgesia. Patient will be discharged with Bentyl and antiemetics. She was advised to follow-up with primary care for further management. Strict return parameters were thoroughly discussed the patient was understanding and agreeable. Case discussed physician. - Lab Data Result diagrams: 01/24/19 14:14 01/24/19 14:14 Lab Results 01/24/19 01/24/19 01/24/19 Range/Units 14:14 14:14 14:14 WBC 14.8 H (3.8-10.6) k/uL RBC 4.23 (3.80-5.40) m/uL Hgb 10.8 L (11.4-16.0) gm/dL Hct 34.1 (34.0-46.0) % MCV 80.6 (80.0-100.0) fL MCH 25.6 (25.0-35.0) pg MCHC 31.8 (31.0-37.0) g/dL RDW 16.5 H (11.5-15.5) % Plt Count 673 H (150-450) k/uL Neutrophils % 76 % Lymphocytes % 18 % Monocytes % 3 % Eosinophils % 2 % Basophils % 1 % Neutrophils # 11.2 H (1.3-7.7) k/uL Lymphocytes # 2.6 (1.0-4.8) k/uL Monocytes # 0.5 (0-1.0) k/uL Eosinophils # 0.3 (0-0.7) k/uL Basophils # 0.1 (0-0.2) k/uL Hypochromasia Moderate Anisocytosis Slight Microcytosis Slight Sodium 136 L (137-145) mmol/L Potassium 4.8 (3.5-5.1) mmol/L Chloride 106 (98-107) mmol/L Carbon Dioxide 17 L (22-30) mmol/L Anion Gap 13 mmol/L BUN 18 H (7-17) mg/dL Creatinine 1.07 H (0.52-1.04) mg/dL Est GFR (CKD-EPI)AfAm 72 (>60 ml/min/1.73 sqM) Est GFR (CKD-EPI)NonAf 63 (>60 ml/min/1.73 sqM) Glucose 198 H (74-99) mg/dL Calcium 9.2 (8.4-10.2) mg/dL Total Bilirubin 0.3 (0.2-1.3) mg/dL AST 41 H (14-36) U/L ALT 31 (9-52) U/L Alkaline Phosphatase 114 (38-126) U/L Total Protein 7.6 (6.3-8.2) g/dL Albumin 4.1 (3.5-5.0) g/dL Amylase 52 (30-110) U/L Lipase 339 H (23-300) U/L Urine Color Light Yellow Urine Appearance Clear (Clear) Urine pH 5.0 (5.0-8.0) Ur Specific [place] 1.008 (1.001-1.035) Urine Protein Trace H (Negative) Urine Glucose (UA) Negative (Negative) Urine Ketones Negative (Negative) Urine Blood Negative (Negative) Urine Nitrite Negative (Negative) Urine Bilirubin Negative (Negative) Urine Urobilinogen <2.0 (<2.0) mg/dL Ur Leukocyte Esterase Negative (Negative) Disposition Clinical Impression: Abdominal pain, Nausea Disposition: HOME SELF-CARE Condition: Stable Instructions (If sedation given, give patient instructions): Abdominal Pain (ED) Additional Instructions: Please follow with primary care. Patient to emergency department if symptoms worsen. Take prescribed medication as directed. Prescriptions: Dicyclomine [Bentyl] 20 mg PO TID #30 tablet Ondansetron Odt [Zofran Odt] 4 mg PO Q8HR PRN #10 tab PRN Reason: Nausea Is patient prescribed a controlled substance at d/c from ED?: No Referrals: Guillermo Cerda MD [Primary Care Provider] - 1-2 days Time of Disposition: 16:56
--- NOTE | 2019-01-24 15:30 | XR ---
EXAMINATION TYPE: XR KUB DATE OF EXAM: 01/24/2019 COMPARISON: 10/23/2018 HISTORY: Vomiting TECHNIQUE: 2 views upright FINDINGS: There is no sign of intestinal obstruction or pneumoperitoneum. Fecal pattern is normal. Th ere is slight lumbar levoscoliosis. There are clips from tubal ligation. There are no pathologic calc ifications over the kidneys. IMPRESSION: Nonacute abdomen. No change.
[2019-01-24 15:32] LABS: Appearance,Urine Clear (Clear); Bilirubin,Urine Negative (Negative); Blood,Urine Negative (Negative); Color,Urine Light Yellow; Glucose,Urine (UA) Negative (Negative); Ketones,Urine Negative (Negative); Leukocyte Esterase,Urine Negative (Negative); Nitrite,Urine Negative (Negative); Protein,Urine Trace (Negative); Specific Gravity,Urine 1.008 (1.001-1.035); Urobilinogen,Urine <2.0 mg/dL (<2.0)
[2019-01-24 15:37] LABS: Albumin 4.1 g/dL (3.5-5.0); Calcium 9.2 mg/dL (8.4-10.2); Potassium 4.8 mmol/L (3.5-5.1); Total Bilirubin 0.3 mg/dL (0.2-1.3); Total Protein 7.6 g/dL (6.3-8.2)
[2019-01-24 15:46] LABS: Anisocytosis Slight; Basophils # (A) 0.1 k/uL (0-0.2); Basophils % (A) 1 %; Eosinophils # (A) 0.3 k/uL (0-0.7); Eosinophils % (A) 2 %; HCT 34.1 % (34.0-46.0); HGB 10.8 gm/dL (11.4-16.0); Hypochromasia Moderate; Lymphocytes # (A) 2.6 k/uL (1.0-4.8); Lymphocytes % (A) 18 %; MCH 25.6 pg (25.0-35.0); MCHC 31.8 g/dL (31.0-37.0); MCV 80.6 fL (80.0-100.0); Mean Platelet Volume 6.1; Microcytosis Slight; Monocytes # (A) 0.5 k/uL (0-1.0); Monocytes % (A) 3 %; Neutrophils # (A) 11.2 k/uL (1.3-7.7); Neutrophils % (A) 76 %; Platelet Count 673 k/uL (150-450); RBC 4.23 m/uL (3.80-5.40); RDW 16.5 % (11.5-15.5); WBC 14.8 k/uL (3.8-10.6)
[2019-01-24] MEDS ORDERED: KETOROLAC 30 MG/ML 1 ML VIAL IVP STA (15:51)
--- NOTE | 2019-01-24 16:08 | XR ---
EXAMINATION TYPE: XR chest 2V DATE OF EXAM: 01/24/2019 COMPARISON: 01/15/2019 HISTORY: Short of breath TECHNIQUE: Frontal and lateral views of the chest are obtained. FINDINGS: Heart and mediastinum are normal. Lungs are clear. Costophrenic angles are clear. Bony tho rax is intact. IMPRESSION: No active cardiopulmonary disease. Normal heart. No change.
[2019-01-24 17:04] VITALS: BP 140/72; PULSE 74; RESP 16
== END 2019-01-24 16:58 | disposition home or self-care (01) ==
LOC: EC 14:09
DX: R11.0 Nausea (principal); R10.13 Epigastric pain; R10.33 Periumbilical pain; D72.829 Elevated white blood cell count, unspecified; R79.89 Other specified abnormal findings of blood chemistry; R42 Dizziness and giddiness; R51 Headache; R68.83 Chills (without fever); R61 Generalized hyperhidrosis; K21.9 Gastro-esophageal reflux disease without esophagitis; F17.200 Nicotine dependence, unspecified, uncomplicated; Z79.899 Other long term (current) drug therapy
CPT/HCPCS: 36415; 80053; 82150; 83690; 85025; 81003; 71046; 74018; 99284; 96374; 96375 ×2; 96361 ×2; J2405; J1885

== ENCOUNTER 2019-01-30 18:56 | Emergency (ER) | payer MEDICARE ==
[2019-01-30] MEDS ORDERED: SODIUM CHLORIDE 0.9% 500 ML 500 ML IV STA (19:09)
[2019-01-30] MEDS ORDERED: DIPH,PERTUS(ACELL)TETVAC-LF 0.5 ML VIAL IM ONE (19:12)
[2019-01-30 19:19] VITALS: PULSE 69
--- NOTE | 2019-01-30 19:36 | ED ---
General Adult HPI - General Chief complaint: Fall Stated complaint: Lft Wrist Injury Time Seen by Provider: 01/30/19 19:00 Source: patient, RN notes reviewed, old records reviewed Mode of arrival: ambulatory Limitations: no limitations - History of Present Illness Initial comments: 48-year-old female patient presents to ED for chief complaint of left wrist injury. Patient was that she was walking when she fell forward, injuring her left wrist. Patient reports that she may have blacked out for a second. Denies any known trauma to head or neck. Chief complaint is left wrist injury. Patient has pain on the medial aspect of her left wrist. Patient also suffered abrasions to her knees bilaterally. Denies any other complaints this time. Denies any headache, changes in vision, chest pain. Systemic: Pt denies fatigue, fever/chills, rash. Pt denies weakness, night sweats, weight loss. Neuro: Pt denies headache, visual disturbances, or pre-syncope. HEENT: Pt denies ocular discharge or irritation, otalgia, rhinorrhea, pharyngitis or notable lymphadenopathy. Cardiopulmonary: Pt denies chest pain, SOB, heart palpitations, dyspnea on exertion. Abdominal/GI: Pt denies abdominal pain, n/v/d. : Pt denies dysuria, burning w/ urination, frequency/urgency. Denies new onset urinary or bowel incontinence. MSK: Pt denies myalgia, loss of strength or function in extremities. Neuro: Pt denies new onset weakness, paresthesias. - Related Data Home Medications Medication Instructions Recorded Confirmed Ibuprofen [Motrin] 800 mg PO Q6H PRN 10/14/18 01/24/19 Esomeprazole Magnesium [NexIUM] 20 mg PO DAILY 01/15/19 01/24/19 traMADol HCL [Ultram] 50 mg PO TID PRN 01/24/19 01/24/19 Previous Rx's Medication Instructions Recorded Dicyclomine [Bentyl] 20 mg PO TID #30 tablet 01/24/19 Ondansetron Odt [Zofran Odt] 4 mg PO Q8HR PRN #10 tab 01/24/19 Allergies Allergy/AdvReac Type Severity Reaction Status Date / Time No Known Allergies Allergy Verified 01/30/19 19:18 Review of Systems ROS Statement: Those systems with pertinent positive or pertinent negative responses have been documented in the HPI. ROS Other: All systems not noted in ROS Statement are negative. Past Medical History Past Medical History: GERD/Reflux, Hyperlipidemia Additional Past Medical History / Comment(s): Pt recently admitted to [facility] on 10/23/18 with abdominal pain/pancreatitis. Other hx: Chronic low back pain- bulging discs History of Any Multi-Drug Resistant Organisms: None Reported Past Surgical History: Tubal Ligation Additional Past Surgical History / Comment(s): Age 7 had VSD repair Past Anesthesia/Blood Transfusion Reactions: No Reported Reaction Past Psychological History: No Psychological Hx Reported Smoking Status: Current every day smoker Past Alcohol Use History: None Reported Past Drug Use History: None Reported - Past Family History Mother Family Medical History: No Reported History Additional Family Medical History / Comment(s): Mother is healthy Father Family Medical History: No Reported History Additional Family Medical History / Comment(s): Father is healthy General Exam - General Exam Comments Initial Comments: Constitutional: NAD, AOX3, Pt has pleasant affect. HEENT: NC/AT, trachea midline, neck supple, no lymphadenopathy. Posterior pharynx non erythematous, without exudates. External ears appear normal, without discharge. Mucous membranes moist. Eyes PERRLA, EOM intact. There is no scleral icterus. No pallor noted. Cardiopulmonary: RRR, no murmurs, rubs or gallops, no JVD noted. Lungs CTAB in anterior and posterior chandler. No peripheral edema. Abdominal exam: Abdomen soft and non-distended. Abdomen non-tender to palpation in all 4 quadrants. Bowel sounds active in LLQ. No hepatosplenomegaly. No ecchymosis Neuro: CN II-XII intact. No nuchal rigidity. No raccon eyes, no hudson sign, no hemotympanum. No cervical spinal tenderness. MSK: Mild abrasions noted on knees bilaterally. Medial aspect of left wrist nontender palpation. No snuffbox tenderness. Full active range of motion. Neurovascular intact, no skin changes. No posterior calf tenderness bilaterally, homans sign negative bilaterally. Posterior tibialis and radial pulse +2 bilaterally. Sensation intact in upper and lower extremities. Full active ROM in upper and lower extremities, 5/5 stregnth. Limitations: no limitations Course Vital Signs 01/30/19 19:17 Temperature 98.1 F Pulse Rate 69 Respiratory 20 Rate Blood Pressure 129/66 O2 Sat by Pulse 96 Oximetry Medical Decision Making - Medical Decision Making 48-year-old female patient presents to ED for chief complaint of left wrist injury. Patient was that she was walking when she fell forward, injuring her left wrist. Patient reports that she may have blacked out for a second. Denies any known trauma to head or neck. Chief complaint is left wrist injury. Jade aldrich has pain on the medial aspect of her left wrist. Patient also suffered abrasions to her knees bilaterally. Denies any other complaints this time. Denies any headache, changes in vision, chest pain. Patient vital signs stable, afebrile. Physical exam displayed: CN II-XII intact. No nuchal rigidity. No raccon eyes, no hudson sign, no hemotympanum. No cervical spinal tenderness. Mild abrasions noted on knees bilaterally. Medial aspect of left wrist nontender palpation. No snuffbox tenderness. Full active range of motion. Neurovascular intact, no skin changes. Laboratory investigations revealed leukocytosis of 18.3, otherwise were not impressive. Pulmonary negative. Chest x-ray, plain film of wrist on display acute process. EKG not concerning for acute ischemia. Patient placed in Sherif wrap. Will discharge with close primary care provider follow-up tomorrow. Return to ER if condition worsens. No driving until cleared by primary care provider. Case discussed with Dr. Glass. - Lab Data Result diagrams: 01/30/19 19:42 01/30/19 19:42 Lab Results 01/30/19 01/30/19 01/30/19 Range/Units 19:42 19:42 19:42 WBC 18.3 H (3.8-10.6) k/uL RBC 4.35 (3.80-5.40) m/uL Hgb 11.0 L (11.4-16.0) gm/dL Hct 34.5 (34.0-46.0) % MCV 79.2 L (80.0-100.0) fL MCH 25.3 (25.0-35.0) pg MCHC 32.0 (31.0-37.0) g/dL RDW 16.2 H (11.5-15.5) % Plt Count 635 H (150-450) k/uL Neutrophils % 77 % Lymphocytes % 16 % Monocytes % 4 % Eosinophils % 1 % Basophils % 1 % Neutrophils # 14.2 H (1.3-7.7) k/uL Lymphocytes # 2.9 (1.0-4.8) k/uL Monocytes # 0.7 (0-1.0) k/uL Eosinophils # 0.1 (0-0.7) k/uL Basophils # 0.1 (0-0.2) k/uL Hypochromasia Slight Anisocytosis Slight Microcytosis Slight Sodium 136 L (137-145) mmol/L Potassium 4.4 (3.5-5.1) mmol/L Chloride 101 (98-107) mmol/L Carbon Dioxide 23 (22-30) mmol/L Anion Gap 12 mmol/L BUN 16 (7-17) mg/dL Creatinine 0.81 (0.52-1.04) mg/dL Est GFR (CKD-EPI)AfAm >90 (>60 ml/min/1.73 sqM) Est GFR (CKD-EPI)NonAf 88 (>60 ml/min/1.73 sqM) Glucose 154 H (74-99) mg/dL Calcium 9.5 (8.4-10.2) mg/dL Magnesium 1.7 (1.6-2.3) mg/dL Total Bilirubin 0.3 (0.2-1.3) mg/dL AST 30 (14-36) U/L ALT 29 (9-52) U/L Alkaline Phosphatase 123 (38-126) U/L Troponin I <0.012 (0.000-0.034) ng/mL Total Protein 7.9 (6.3-8.2) g/dL Albumin 4.4 (3.5-5.0) g/dL Urine Color Urine Appearance (Clear) Urine pH (5.0-8.0) Ur Specific [place] (1.001-1.035) Urine Protein (Negative) Urine Glucose (UA) (Negative) Urine Ketones (Negative) Urine Blood (Negative) Urine Nitrite (Negative) Urine Bilirubin (Negative) Urine Urobilinogen (<2.0) mg/dL Ur Leukocyte Esterase (Negative) Urine RBC (0-5) /hpf Ur Squamous Epith Cells (0-4) /hpf Urine Bacteria (None) /hpf Urine Mucus (None) /hpf 01/30/19 Range/Units 20:00 WBC (3.8-10.6) k/uL RBC (3.80-5.40) m/uL Hgb (11.4-16.0) gm/dL Hct (34.0-46.0) % MCV (80.0-100.0) fL MCH (25.0-35.0) pg MCHC (31.0-37.0) g/dL RDW (11.5-15.5) % Plt Count (150-450) k/uL Neutrophils % % Lymphocytes % % Monocytes % % Eosinophils % % Basophils % % Neutrophils # (1.3-7.7) k/uL Lymphocytes # (1.0-4.8) k/uL Monocytes # (0-1.0) k/uL Eosinophils # (0-0.7) k/uL Basophils # (0-0.2) k/uL Hypochromasia Anisocytosis Microcytosis Sodium (137-145) mmol/L Potassium (3.5-5.1) mmol/L Chloride (98-107) mmol/L Carbon Dioxide (22-30) mmol/L Anion Gap mmol/L BUN (7-17) mg/dL Creatinine (0.52-1.04) mg/dL Est GFR (CKD-EPI)AfAm (>60 ml/min/1.73 sqM) Est GFR (CKD-EPI)NonAf (>60 ml/min/1.73 sqM) Glucose (74-99) mg/dL Calcium (8.4-10.2) mg/dL Magnesium (1.6-2.3) mg/dL Total Bilirubin (0.2-1.3) mg/dL AST (14-36) U/L ALT (9-52) U/L Alkaline Phosphatase (38-126) U/L Troponin I (0.000-0.034) ng/mL Total Protein (6.3-8.2) g/dL Albumin (3.5-5.0) g/dL Urine Color Light Yellow Urine Appearance Clear (Clear) Urine pH 5.5 (5.0-8.0) Ur Specific [place] 1.007 (1.001-1.035) Urine Protein Trace H (Negative) Urine Glucose (UA) Negative (Negative) Urine Ketones Negative (Negative) Urine Blood Negative (Negative) Urine Nitrite Negative (Negative) Urine Bilirubin Negative (Negative) Urine Urobilinogen <2.0 (<2.0) mg/dL Ur Leukocyte Esterase Moderate H (Negative) Urine RBC 2 (0-5) /hpf Ur Squamous Epith Cells 3 (0-4) /hpf Urine Bacteria Moderate H (None) /hpf Urine Mucus Rare H (None) /hpf - EKG Data -: EKG Interpreted by Me (and Dr. Glass ) EKG Comments: Ventricular rate 67,. Full and 58, QRS 82, QTC is QTC 42/428. NSR, left ventricular hypertrophy with repolarization mild. abnormal ekg, no concern for acute ischemia. Disposition Clinical Impression: Fall, Syncope Disposition: HOME SELF-CARE Condition: Stable Instructions (If sedation given, give patient instructions): Syncope (ED) Additional Instructions: Patient to adhere to previously discussed treatment plan and will take medication(s) as directed. Patient to follow up with PCP in 1-2 days. Patient to return to ED if symptoms do not improve. Follow-up with primary care provider tomorrow. Do not drive until cleared by primary care provider. Return to ER if condition worsens in any way. Is patient prescribed a controlled substance at d/c from ED?: No Referrals: Guillermo Cerda MD [Primary Care Provider] - 1-2 days
[2019-01-30 20:02] LABS: Anisocytosis Slight; Basophils # (A) 0.1 k/uL (0-0.2); Basophils % (A) 1 %; Eosinophils # (A) 0.1 k/uL (0-0.7); Eosinophils % (A) 1 %; HCT 34.5 % (34.0-46.0); Hypochromasia Slight; Lymphocytes # (A) 2.9 k/uL (1.0-4.8); Lymphocytes % (A) 16 %; MCH 25.3 pg (25.0-35.0); MCV 79.2 fL (80.0-100.0); Mean Platelet Volume 5.5; Microcytosis Slight; Monocytes # (A) 0.7 k/uL (0-1.0); Monocytes % (A) 4 %; Neutrophils # (A) 14.2 k/uL (1.3-7.7); Neutrophils % (A) 77 %; Platelet Count 635 k/uL (150-450); RBC 4.35 m/uL (3.80-5.40); RDW 16.2 % (11.5-15.5); WBC 18.3 k/uL (3.8-10.6)
[2019-01-30 20:17] LABS: ALT 29 U/L (9-52); AST 30 U/L (14-36); African American GFR (CKD) >90 (>60 ml/min/1.73 sqM); Albumin 4.4 g/dL (3.5-5.0); Alkaline Phosphatase 123 U/L (38-126); Anion Gap 12 mmol/L; Blood Urea Nitrogen 16 mg/dL (7-17); Calcium 9.5 mg/dL (8.4-10.2); Carbon Dioxide 23 mmol/L (22-30); Chloride 101 mmol/L (98-107); Glucose 154 mg/dL (74-99); Magnesium 1.7 mg/dL (1.6-2.3); Potassium 4.4 mmol/L (3.5-5.1); Sodium 136 mmol/L (137-145); Total Bilirubin 0.3 mg/dL (0.2-1.3); Total Protein 7.9 g/dL (6.3-8.2)
--- NOTE | 2019-01-30 20:30 | XR ---
EXAMINATION: XR chest 2V DATE AND TIME: 01/30/2019 8:02 PM CLINICAL INDICATION: PHH; fall, possible syncope TECHNIQUE: Departmental protocol COMPARISON: 01/24/2019 FINDINGS: Sternal sutures and mediastinal clips noted. The lungs are clear. The pleural spaces are negative. The cardiac silhouette is not enlarged. The remainder of the mediastinal silhouette is unremarkable. The skeletal structures and soft tissues are negative for acute findings. IMPRESSION: NO ACUTE PROCESS.
--- NOTE | 2019-01-30 20:31 | XR ---
PROCEDURE: XR wrist complete LT - 4V DATE AND TIME: 01/30/2019 8:00 PM CLINICAL INDICATION: PHH; fall, pain TECHNIQUE: Department protocol COMPARISON: 08/25/2009 FINDINGS: There is no fracture or malalignment. The soft tissues are unremarkable. IMPRESSION: NO ACUTE PROCESS.
[2019-01-30 20:56] LABS: Appearance,Urine Clear (Clear); Bacteria,Urine Moderate /hpf; Bilirubin,Urine Negative (Negative); Blood,Urine Negative (Negative); Color,Urine Light Yellow; Glucose,Urine (UA) Negative (Negative); Ketones,Urine Negative (Negative); Leukocyte Esterase,Urine Moderate (Negative); Mucus,Urine Rare /hpf; Nitrite,Urine Negative (Negative); PH, Urine 5.5 (5.0-8.0); Protein,Urine Trace (Negative); RBC,Urine 2 /hpf (0-5); Specific Gravity,Urine 1.007 (1.001-1.035); Squamous Epithelial Cell,Urine 3 /hpf (0-4); Urobilinogen,Urine <2.0 mg/dL (<2.0)
[2019-01-30 21:55] VITALS: BP 118/76; RESP 18; TEMP 98.7
== END 2019-01-30 21:54 | disposition home or self-care (01) ==
LOC: EC 18:56
DX: R55 Syncope and collapse (principal); S80.212A Abrasion, left knee, initial encounter; S80.211A Abrasion, right knee, initial encounter; M25.532 Pain in left wrist; D72.829 Elevated white blood cell count, unspecified; K21.9 Gastro-esophageal reflux disease without esophagitis; F17.200 Nicotine dependence, unspecified, uncomplicated; E78.5 Hyperlipidemia, unspecified; Z79.899 Other long term (current) drug therapy; W19.XXXA Unspecified fall, initial encounter; Y93.01 Activity, walking, marching and hiking
CPT/HCPCS: 36415; 71046; 80053; 81001; 83735; 84484; 85025; 87077; 87086; 87186; 93005; 96360; 96361; 99284

== ENCOUNTER 2019-02-01 08:56 | Emergency (ER) | payer MEDICARE ==
[2019-02-01 09:08] VITALS: BP 138/79; PULSE 79; RESP 18; TEMP 98.1
--- NOTE | 2019-02-01 10:14 | XR ---
EXAMINATION TYPE: XR hand complete RT , 3 VIEWS DATE OF EXAM ORDERED: 02/01/2019 HISTORY: fall 3 days ago. COMPARISON: None. FINDINGS: No fracture, dislocation or other acute osseous lesion is seen. IMPRESSION: NO ACUTE OSSEOUS LESION.
--- NOTE | 2019-02-01 10:15 | ED ---
Upper Extremity HPI - General Chief Complaint: Extremity Injury, Upper Stated Complaint: wrist pain Time Seen by Provider: 02/01/19 09:24 Source: EMS, RN notes reviewed, old records reviewed Mode of arrival: EMS Limitations: no limitations - History of Present Illness Initial Comments: 48-year-old female who presents emergency department today for evaluation for right wrist and hand pain. Patient reports that she follow up 2 days ago. She was seen in the emergency department at that time complaining of left wrist pain. She had x-rays which are negative for fracture. Patient states that she now has pain in her right wrist she did not have x-rays at that time and felt concerned that it could be broken as well. Patient states that she has normal sensation to distal fingertips. No previous injuries to the right wrist or hand. - Related Data Home Medications Medication Instructions Recorded Confirmed Ibuprofen [Motrin] 800 mg PO Q6H PRN 10/14/18 02/04/19 Esomeprazole Magnesium [NexIUM] 20 mg PO DAILY 01/15/19 02/04/19 traMADol HCL [Ultram] 50 mg PO TID PRN 01/24/19 02/04/19 Allergies Allergy/AdvReac Type Severity Reaction Status Date / Time No Known Allergies Allergy Verified 02/04/19 08:49 Review of Systems ROS Statement: Those systems with pertinent positive or pertinent negative responses have been documented in the HPI. ROS Other: All systems not noted in ROS Statement are negative. Past Medical History Past Medical History: GERD/Reflux, Hyperlipidemia Additional Past Medical History / Comment(s): Pt recently admitted to [facility] on 10/23/18 with abdominal pain/pancreatitis. Other hx: Chronic low back pain- bulging discs History of Any Multi-Drug Resistant Organisms: None Reported Past Surgical History: Tubal Ligation Additional Past Surgical History / Comment(s): Age 7 had VSD repair Past Anesthesia/Blood Transfusion Reactions: No Reported Reaction Past Psychological History: No Psychological Hx Reported Smoking Status: Current every day smoker Past Alcohol Use History: None Reported Past Drug Use History: None Reported - Past Family History Mother Family Medical History: No Reported History Additional Family Medical History / Comment(s): Mother is healthy Father Family Medical History: No Reported History Additional Family Medical History / Comment(s): Father is healthy General Exam - General Exam Comments Initial Comments: Alert and oriented 48-year-old female. No distress. Limitations: no limitations General appearance: alert, in no apparent distress Head exam: Present: atraumatic, normocephalic, normal inspection Eye exam: Present: normal appearance, PERRL, EOMI. Absent: scleral icterus, conjunctival injection, periorbital swelling ENT exam: Present: normal exam, mucous membranes moist Neck exam: Present: normal inspection. Absent: tenderness, meningismus, lymphadenopathy Respiratory exam: Present: normal lung sounds bilaterally. Absent: respiratory distress, wheezes, rales, rhonchi, stridor Cardiovascular Exam: Present: regular rate GI/Abdominal exam: Present: soft, normal bowel sounds. Absent: distended, tenderness, guarding, rebound, rigid Extremities exam: Present: normal inspection, full ROM, normal capillary refill. Absent: tenderness, pedal edema, joint swelling, calf tenderness Right Forearm Wrist exam: Present: normal inspection, full ROM, tenderness (Anatomical snuffbox. ), tenderness over anatomical snuff box Hand Wrist exam: Present: normal inspection, full ROM, other (Superficial 1 centimeter abrasions over the thenar eminence and first index finger.) Neuro motor exam: Present: wrist extension intact, thumb opposition intact, thumb IP flexion intact, thumb adduction intact, fingers 2-5 abduction intact Course Vital Signs 02/01/19 09:07 Temperature 98.1 F Pulse Rate 79 Respiratory 18 Rate Blood Pressure 138/79 O2 Sat by Pulse 99 Oximetry Procedures - Orthopedic Splinting/Casting Injury #1 Side: right Upper Extremity Injury Location: wrist, hand Upper Extremity Immobilizer: thumb spica, Sherif wrap, synthetic pre-padded splint Additional Comments: Patient was reevaluated and neurovascularly intact. Medical Decision Making - Medical Decision Making [id number] female presents resort today she went a fall 2 days ago. At that time she was seen for left wrist and hand pain. Today she states that she now knows that she has pain in her right wrist and hand. She is evidence of superficial abrasions over the fingertips and the thenar eminence. She has some tenderness over the anatomical snuffbox. X-rays negative for acute process. Patient did receive a thumb spica splint to snuffbox tenderness. Discussed orthopedic follow-up. All questions were answered. - Radiology Data Radiology results: report reviewed And X-rays negative for any acute osseous lesion. Disposition Clinical Impression: Wrist sprain, Hand contusion Disposition: HOME SELF-CARE Condition: Good Instructions (If sedation given, give patient instructions): Wrist Sprain (ED), Hematoma (ED) Additional Instructions: Please use medication as discussed. Please follow up with family doctor if symptoms have not improved over the next two days. Please return to the emergency room if your symptoms increase or worsen or for any other concerns. Is patient prescribed a controlled substance at d/c from ED?: No Referrals: Guillermo Cerda MD [Primary Care Provider] - 1-2 days Vikas Conn MD [Medical Doctor] - 1-2 days Time of Disposition: 10:32
== END 2019-02-01 10:48 | disposition home or self-care (01) ==
LOC: EC 08:56
DX: S63.501A Unspecified sprain of right wrist, initial encounter (principal); K21.9 Gastro-esophageal reflux disease without esophagitis; E78.5 Hyperlipidemia, unspecified; F17.200 Nicotine dependence, unspecified, uncomplicated; Z79.899 Other long term (current) drug therapy; W19.XXXA Unspecified fall, initial encounter
CPT/HCPCS: 29125; 99284

== ENCOUNTER 2019-02-04 08:32 | Inpatient (IN) | payer MEDICARE ==
[2019-02-04] MEDS ORDERED: ACETAMINOPHEN TAB 500 MG TAB PO STA (09:02)
--- NOTE | 2019-02-04 09:08 | ED ---
General Adult HPI - General Chief complaint: Upper Respiratory Infection Stated complaint: cough Time Seen by Provider: 02/04/19 08:39 Source: patient, EMS, RN notes reviewed Mode of arrival: EMS Limitations: no limitations - History of Present Illness Initial comments: Patient is a pleasant 48-year-old female presenting to the emergency department with cough. Onset of symptoms was a couple of days ago. Patient has had occasional clear sputum. Patient complains of myalgias and fatigue. Patient feels chilled. Patient is unaware of any fevers at home. Patient denies chest discomfort. No headache or neck discomfort. No abdominal pain. No dysuria or hematuria. No history of similar symptoms previously. - Related Data Home Medications Medication Instructions Recorded Confirmed Ibuprofen [Motrin] 800 mg PO Q6H PRN 10/14/18 02/04/19 Esomeprazole Magnesium [NexIUM] 20 mg PO DAILY 01/15/19 02/04/19 traMADol HCL [Ultram] 50 mg PO TID PRN 01/24/19 02/04/19 Allergies Allergy/AdvReac Type Severity Reaction Status Date / Time No Known Allergies Allergy Verified 02/04/19 08:49 Review of Systems ROS Statement: Those systems with pertinent positive or pertinent negative responses have been documented in the HPI. ROS Other: All systems not noted in ROS Statement are negative. Constitutional: Reports: chills Eyes: Denies: eye pain ENT: Denies: ear pain Respiratory: Reports: cough. Denies: dyspnea Cardiovascular: Denies: chest pain Endocrine: Reports: fatigue Gastrointestinal: Denies: abdominal pain Genitourinary: Denies: urgency, dysuria Musculoskeletal: Denies: back pain Skin: Denies: rash Neurological: Denies: headache Past Medical History Past Medical History: GERD/Reflux, Hyperlipidemia Additional Past Medical History / Comment(s): Pt recently admitted to [facility] on 10/23/18 with abdominal pain/pancreatitis. Other hx: Chronic low back pain- bulging discs History of Any Multi-Drug Resistant Organisms: None Reported Past Surgical History: Tubal Ligation Additional Past Surgical History / Comment(s): Age 7 had VSD repair Past Anesthesia/Blood Transfusion Reactions: No Reported Reaction Past Psychological History: No Psychological Hx Reported Smoking Status: Current every day smoker Past Alcohol Use History: None Reported Past Drug Use History: None Reported - Past Family History Mother Family Medical History: No Reported History Additional Family Medical History / Comment(s): Mother is healthy Father Family Medical History: No Reported History Additional Family Medical History / Comment(s): Father is healthy General Exam Limitations: no limitations General appearance: alert, in no apparent distress Head exam: Present: normocephalic Eye exam: Present: normal appearance, PERRL ENT exam: Present: normal oropharynx Neck exam: Present: normal inspection. Absent: meningismus Respiratory exam: Present: rhonchi Cardiovascular Exam: Present: regular rate, normal rhythm GI/Abdominal exam: Present: soft. Absent: tenderness Extremities exam: Present: normal inspection Neurological exam: Present: alert Psychiatric exam: Present: normal affect, normal mood Skin exam: Present: normal color Course Vital Signs 02/04/19 02/04/19 08:35 10:30 Temperature 102.8 F H 99.8 F H Pulse Rate 97 Respiratory 18 Rate Blood Pressure 148/64 O2 Sat by Pulse 95 Oximetry - Reevaluation(s) Reevaluation #1: 02/04/19 12:00 Ur is suspicion for sepsis diagnosed at 1155. Patient will be started on IV antibiotics. Blood culture and lactic acid have been ordered. Computed tomography scan the chest ordered. EKG Findings - EKG Comments: EKG Findings:: Normal sinus rhythm 95. VT 114. QRS 70. QT 296. QTC 371. Normal axis. LVH criteria. No acute ST change. Medical Decision Making - Medical Decision Making Case was discussed in detail with Dr. Cerda, who will admit his patient. He is agreeable with ordering computed tomography scan of the chest. He does request hematology consult. - Lab Data Result diagrams: 02/04/19 09:20 02/04/19 09:20 Lab Results 02/04/19 02/04/19 02/04/19 Range/Units 09:20 09:20 09:20 WBC 34.8 H (3.8-10.6) k/uL RBC 4.07 (3.80-5.40) m/uL Hgb 10.1 L (11.4-16.0) gm/dL Hct 32.0 L (34.0-46.0) % MCV 78.6 L (80.0-100.0) fL MCH 24.9 L (25.0-35.0) pg MCHC 31.6 (31.0-37.0) g/dL RDW 17.0 H (11.5-15.5) % Plt Count 516 H (150-450) k/uL Neutrophils % (Manual) 87 % Band Neutrophils % 9 % Lymphocytes % (Manual) 1 % Monocytes % (Manual) 3 % Neutrophils # (Manual) 33.40 H (1.3-7.7) k/uL Lymphocytes # (Manual) 0.35 L (1.0-4.8) k/uL Monocytes # (Manual) 1.04 H (0-1.0) k/uL Nucleated RBCs 0 (0-0) /100 WBC Manual Slide Review Performed Anisocytosis Slight Microcytosis Slight PT (9.0-12.0) sec INR (<1.2) APTT (22.0-30.0) sec Sodium 137 (137-145) mmol/L Potassium 4.4 (3.5-5.1) mmol/L Chloride 105 (98-107) mmol/L Carbon Dioxide 19 L (22-30) mmol/L Anion Gap 13 mmol/L BUN 15 (7-17) mg/dL Creatinine 0.78 (0.52-1.04) mg/dL Est GFR (CKD-EPI)AfAm >90 (>60 ml/min/1.73 sqM) Est GFR (CKD-EPI)NonAf >90 (>60 ml/min/1.73 sqM) Glucose 321 H (74-99) mg/dL Plasma Lactic Acid Travon 2.6 H* (0.7-2.0) mmol/L Calcium 9.1 (8.4-10.2) mg/dL Total Bilirubin 0.5 (0.2-1.3) mg/dL AST 29 (14-36) U/L ALT 41 (9-52) U/L Alkaline Phosphatase 152 H (38-126) U/L Total Protein 6.9 (6.3-8.2) g/dL Albumin 3.6 (3.5-5.0) g/dL Urine Color Urine Appearance (Clear) Urine pH (5.0-8.0) Ur Specific [place] (1.001-1.035) Urine Protein (Negative) Urine Glucose (UA) (Negative) Urine Ketones (Negative) Urine Blood (Negative) Urine Nitrite (Negative) Urine Bilirubin (Negative) Urine Urobilinogen (<2.0) mg/dL Ur Leukocyte Esterase (Negative) Urine RBC (0-5) /hpf Urine WBC (0-5) /hpf Ur Squamous Epith Cells (0-4) /hpf Urine Bacteria (None) /hpf Urine Mucus (None) /hpf Influenza Type A RNA (Not Detectd) Influenza Type B (PCR) (Not Detectd) 02/04/19 02/04/19 02/04/19 Range/Units 09:20 09:20 09:40 WBC (3.8-10.6) k/uL RBC (3.80-5.40) m/uL Hgb (11.4-16.0) gm/dL Hct (34.0-46.0) % MCV (80.0-100.0) fL MCH (25.0-35.0) pg MCHC (31.0-37.0) g/dL RDW (11.5-15.5) % Plt Count (150-450) k/uL Neutrophils % (Manual) % Band Neutrophils % % Lymphocytes % (Manual) % Monocytes % (Manual) % Neutrophils # (Manual) (1.3-7.7) k/uL Lymphocytes # (Manual) (1.0-4.8) k/uL Monocytes # (Manual) (0-1.0) k/uL Nucleated RBCs (0-0) /100 WBC Manual Slide Review Anisocytosis Microcytosis PT 10.6 (9.0-12.0) sec INR 1.0 (<1.2) APTT 27.5 (22.0-30.0) sec Sodium (137-145) mmol/L Potassium (3.5-5.1) mmol/L Chloride (98-107) mmol/L Carbon Dioxide (22-30) mmol/L Anion Gap mmol/L BUN (7-17) mg/dL Creatinine (0.52-1.04) mg/dL Est GFR (CKD-EPI)AfAm (>60 ml/min/1.73 sqM) Est GFR (CKD-EPI)NonAf (>60 ml/min/1.73 sqM) Glucose (74-99) mg/dL Plasma Lactic Acid [place] (0.7-2.0) mmol/L Calcium (8.4-10.2) mg/dL Total Bilirubin (0.2-1.3) mg/dL AST (14-36) U/L ALT (9-52) U/L Alkaline Phosphatase (38-126) U/L Total Protein (6.3-8.2) g/dL Albumin (3.5-5.0) g/dL Urine Color Yellow Urine Appearance Clear (Clear) Urine pH 6.0 (5.0-8.0) Ur Specific [place] 1.021 (1.001-1.035) Urine Protein 2+ H (Negative) Urine Glucose (UA) 2+ H (Negative) Urine Ketones Negative (Negative) Urine Blood Negative (Negative) Urine Nitrite Negative (Negative) Urine Bilirubin Negative (Negative) Urine Urobilinogen 2.0 (<2.0) mg/dL Ur Leukocyte Esterase Small H (Negative) Urine RBC 2 (0-5) /hpf Urine WBC 19 H (0-5) /hpf Ur Squamous Epith Cells 4 (0-4) /hpf Urine Bacteria Rare H (None) /hpf Urine Mucus Rare H (None) /hpf Influenza Type A RNA Not Detected (Not Detectd) Influenza Type B (PCR) Not Detected (Not Detectd) Critical Care Time Critical Care Time: Yes Total Critical Care Time: 32 Disposition Clinical Impression: Dyspnea, Leukocytosis, Sepsis Disposition: ADMITTED IP TO THIS HOSP Is patient prescribed a controlled substance at d/c from ED?: No Referrals: Guillermo Cerda MD [Primary Care Provider] - 1-2 days Decision Time: 12:01
[2019-02-04] MEDS: SODIUM CHLORIDE 0.9% 500 ML 500 ML IV SCH ×2 (09:31→09:50)
[2019-02-04 09:40] LABS: Anisocytosis Slight; HGB 10.1 gm/dL (11.4-16.0); MCH 24.9 pg (25.0-35.0); MCHC 31.6 g/dL (31.0-37.0); MCV 78.6 fL (80.0-100.0); Mean Platelet Volume 6.2; Microcytosis Slight; Platelet Count 516 k/uL (150-450); RBC 4.07 m/uL (3.80-5.40); WBC 34.8 k/uL (3.8-10.6)
[2019-02-04 09:42] LABS: Appearance,Urine Clear (Clear); Bacteria,Urine Rare /hpf; Bilirubin,Urine Negative (Negative); Blood,Urine Negative (Negative); Color,Urine Yellow; Glucose,Urine (UA) 2+ (Negative); Ketones,Urine Negative (Negative); Leukocyte Esterase,Urine Small (Negative); Mucus,Urine Rare /hpf; Nitrite,Urine Negative (Negative); Protein,Urine 2+ (Negative); RBC,Urine 2 /hpf (0-5); Specific Gravity,Urine 1.021 (1.001-1.035); Squamous Epithelial Cell,Urine 4 /hpf (0-4); WBC,Urine 19 /hpf (0-5)
[2019-02-04 09:47] LABS: Partial Thromboplastin Time 27.5 sec (22.0-30.0); Prothrombin Time 10.6 sec (9.0-12.0)
[2019-02-04 09:48] LABS: ALT 41 U/L (9-52); AST 29 U/L (14-36); African American GFR (CKD) >90 (>60 ml/min/1.73 sqM); Albumin 3.6 g/dL (3.5-5.0); Alkaline Phosphatase 152 U/L (38-126); Anion Gap 13 mmol/L; Blood Urea Nitrogen 15 mg/dL (7-17); Calcium 9.1 mg/dL (8.4-10.2); Carbon Dioxide 19 mmol/L (22-30); Chloride 105 mmol/L (98-107); Glucose 321 mg/dL (74-99); Potassium 4.4 mmol/L (3.5-5.1); Sodium 137 mmol/L (137-145); Total Bilirubin 0.5 mg/dL (0.2-1.3); Total Protein 6.9 g/dL (6.3-8.2)
[2019-02-04 10:00] LABS: Band Neutrophils % 9 %; Lymphocytes # (M) 0.35 k/uL (1.0-4.8); Monocytes # (M) 1.04 k/uL (0-1.0); Neutrophils % (M) 87 %; Nucleated Red Blood Cells 0 /100 WBC (0-0); Total Cells Counted 100
--- NOTE | 2019-02-04 10:23 | XR ---
EXAMINATION TYPE: XR chest 2V DATE OF EXAM: 02/04/2019 COMPARISON: 01/30/2019 HISTORY: Cough and fever TECHNIQUE: Frontal and lateral views of the chest are obtained. FINDINGS: There is no focal air space opacity, pleural effusion, or pneumothorax seen. The cardiac silhouette size is within normal limits. 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 Stable dehiscence of the most inferior sternotomy wire. The osseous structures are intact. IMPRESSION: No acute cardiopulmonary process.
[2019-02-04] MEDS ORDERED: LEVOFLOXACIN 750MG-D5W PMX 750 MG in DEXTROSE/WATER 1 150ML.BAG IVPB STA (12:01)
[2019-02-04] MEDS ORDERED: PNEUMONIA PROTOCOL UTILIZED 1 EACH MISC PO PRN (12:01)
[2019-02-04] MEDS ORDERED: PIPERACILLIN-TAZOBACTAM 3.375 GM in SODIUM CHLORIDE 0.9% 100 ML IVPB STA (12:01)
[2019-02-04] MEDS ORDERED: IPRATROPIUM-ALBUTEROL 3 ML NEB INHALATION PRN (12:01)
[2019-02-04] MEDS: SODIUM CHLORIDE 0.9% 1,000 ML IV SCH ×2 (12:38→15:32)
--- NOTE | 2019-02-04 13:49 | CT ---
CT CHEST FOR PULMONARY EMBOLISM. EXAMINATION TYPE: CT angio chest DATE OF EXAM: 02/04/2019 INDICATION: CT DLP: Bilateral 1.5 mGycm, Automated exposure control for dose reduction was used. CONTRAST: Patient injected with 100 mL of Isovue 370. COMPARISON: 01/15/2019 TECHNIQUE: CT of the chest is performed on a spiral scan at 2 mm thick sections. Study is performed with intravenous contrast timed for evaluation for pulmonary embolism. This will limit additional po rtions of the evaluation. 3-D MIP images reconstructed by the technologist are reviewed on the compu ter in the coronal and sagittal planes. FINDINGS: No persistent filling defects are evident to suggest an acute pulmonary embolism. No mediastinal or hilar adenopathy enlarged by CT criteria is evident. The ascending aorta diameter at the level of the main pulmonary artery is 2.9 cm. The main pulmonary artery diameter at the bifur cation is 2.2 cm. There is a 0.5 cm density along the anterior lateral right lung margin. This measures 0.5 cm, series 406 image 76. Some minimal pneumonitis change may be just posterior to the major fissure near the per iphery of the right lower lung field. Example image 406 image 77. There is a 0.3 cm nodule within the anterolateral right lung. Series [address] section through the upper abdomen are unremarkable. IMPRESSIONS: 1. No acute pulmonary embolism. 2. There are few scattered small nonspecific densities within the right lung. [facility] months to evaluate stability.
[2019-02-04] MEDS ORDERED: PNEUMOCOCCAL VACC-PNEUMOVAX 23 25 MCG/0.5 ML VIAL IM ONE (14:08)
[2019-02-04] MEDS: IPRATROPIUM-ALBUTEROL 3 ML NEB INHALATION SCH ×2 (15:14→19:38)
[2019-02-04] MEDS: traMADol 50 MG TAB PO PRN (16:33)
[2019-02-04] MEDS: INSULIN ASPART (NovoLOG) 100 UNIT/ML VIAL SQ SCH (17:17)
[2019-02-04 17:18] LABS: Glucose,Whole Blood 359 mg/dL (75-99)
[2019-02-04 20:42] LABS: Glucose,Whole Blood 200 mg/dL (75-99)
[2019-02-04 20:50] LABS: Hemoglobin A1C 8.7 % (4.0-6.0)
[2019-02-04] MEDS: PIPERACILLIN-TAZOBACTAM 3.375 GM in SODIUM CHLORIDE 0.9% 100 ML IVPB SCH (21:23)
[2019-02-04] MEDS: ACETAMINOPHEN TAB 325 MG TAB PO PRN (22:05)
[2019-02-05] MEDS: SODIUM CHLORIDE 0.9% 1,000 ML IV SCH ×3 (02:22→17:45)
[2019-02-05] MEDS: traMADol 50 MG TAB PO PRN ×2 (02:29→21:23)
[2019-02-05] MEDS: PIPERACILLIN-TAZOBACTAM 3.375 GM in SODIUM CHLORIDE 0.9% 100 ML IVPB SCH ×3 (05:21→21:07)
[2019-02-05] MEDS: IPRATROPIUM-ALBUTEROL 3 ML NEB INHALATION SCH ×4 (07:04→19:50)
[2019-02-05 07:18] LABS: Glucose,Whole Blood 250 mg/dL (75-99)
[2019-02-05] MEDS: PANTOPRAZOLE 40 MG TABLET PO SCH (08:04)
[2019-02-05] MEDS: INSULIN ASPART (NovoLOG) 100 UNIT/ML VIAL SQ SCH ×3 (08:04→17:44)
[2019-02-05] MEDS: INSULIN DETEMIR (LEVEMIR) 100 UNIT/ML SYR SQ SCH (08:04)
--- NOTE | 2019-02-05 08:42 | XR ---
EXAMINATION TYPE: XR chest 2V DATE OF EXAM: 02/05/2019 COMPARISON: 02/04/2019 HISTORY: Chest pain TECHNIQUE: Frontal and lateral views of the chest are obtained. FINDINGS: There is no focal air space opacity. No evidence for pneumothorax. No pleural effusion. The cardiac silhouette size is at the upper limits of normal. The osseous structures are grossly intact. IMPRESSION: 1. No acute pulmonary process.
[2019-02-05 11:54] LABS: Glucose,Whole Blood 208 mg/dL (75-99)
[2019-02-05] MEDS: ACETAMINOPHEN TAB 325 MG TAB PO PRN (13:23)
[2019-02-05] MEDS: LEVOFLOXACIN 750MG-D5W PMX 750 MG in DEXTROSE/WATER 1 150ML.BAG IVPB SCH (16:29)
[2019-02-05 17:03] LABS: Glucose,Whole Blood 248 mg/dL (75-99)
--- NOTE | 2019-02-05 20:16 | PN ---
PROGRESS NOTE CHIEF COMPLAINT: Pneumonitis and leukocytosis. HISTORY OF PRESENT ILLNESS: This lady is still feeling very short of breath and congested. She is running a low- grade temperature. Blood sugars have been up. PHYSICAL EXAMINATION: Chest demonstrates extensive rales and rhonchi bilaterally with mild expiratory wheezing. Cardiac exam demonstrates tachycardia. Abdomen is soft, nontender. IMPRESSION: 1. Bronchitis. 2. Leukocytosis. 3. Possible sepsis. 4. Uncontrolled diabetes. PLAN: 1. Continue with IV fluids and antibiotics along with updrafts. 2. Blood sugars will be treated with insulin if they continue to stay high. MMODL / IJN: [id number] /
--- NOTE | 2019-02-05 20:34 | HP ---
HISTORY AND PHYSICAL CHIEF COMPLAINT: Cough, shortness of breath, fever and congestion. HISTORY OF PRESENT ILLNESS: This is another admission for this 48-year-old white female. She developed URI and presented to the emergency room where it was thought that she probably had bronchitis and possible pneumonitis. White count was 34,000. REVIEW OF SYSTEMS: She has had no headaches, lethargy, change in vision or hearing, chest pain, cough, hemoptysis, sputum production, orthopnea, PND, heart disease, abdominal pain, nausea, vomiting, hematemesis, melena, hematochezia, jaundice, hepatitis, cirrhosis, hematuria, renal failure, dysuria, incontinence, etc. She does have type 2 NIDDM managed with metformin. Past medical history, family history, personal and social histories reveal that she is ALLERGIC to no medications. At home she has been on only Nexium, ibuprofen and tramadol. She has not been taking metformin. LABORATORY DATA: Laboratory studies: Her blood sugar was running about 2-300. Lactic acid was 2.1. Chest x-ray did not reveal any acute process. PHYSICAL EXAM: Temperature is 100.9. Blood pressure is 165/72 with a pulse of 83, respirations of 16. In general, she appeared to be overweight and slightly short of breath. Skin color is normal. Head, ears, eyes, nose, mouth, and throat were normal. Neck veins are not distended. Thyroid is not enlarged. Chest demonstrates decreased breath sounds with scattered rales and rhonchi. Cardiac exam demonstrates normal sinus rhythm and no murmurs or extra sounds. The abdomen is protuberant, soft, nontender. Bowel sounds present. Extremities are normal. Neurologically she is intact. IMPRESSION: She is admitted to the hospital with diagnoses: 1. Bronchitis. 2. Uncontrolled diabetes mellitus. 3. Leukocytosis. PLAN: 1. Bed rest. 2. IV fluids. 3. IV antibiotics. 4. Updrafts. 5. Follow CBC. 6. Consult with Oncology. MMODL / IJN: [id number] /
[2019-02-05 20:45] LABS: Glucose,Whole Blood 230 mg/dL (75-99)
--- NOTE | 2019-02-05 20:47 | P.CONS ---
History of Present Illness - Reason for Consult Consult date: 02/05/19 Leukocytosis - History of Present Illness The patient is a 48-year-old white female with multiple medical problems. She was admitted this time because of progressive shortness of breath and cough. On admission she was found to have elevated WBC in the 30-35,000 range. Consult was therefore placed for further evaluation and recommendations. The patient denied any prior history of blood related problems. She was admitted earlier this month for pancreatitis. She then had an ER visit because of fall and trauma. Review of her labs prior to this admission shows WBC mildly elevated in the 10-and 15,000 range. Current labs show predominant neutrophilia with no other CBC abnormalities. The patient is a current smoker, up to this admission. She also has a regular periods. Review of Systems Constitutional: Reports chronic pain, Reports fatigue, Reports weakness Eyes: denies blurred vision, denies pain Ears: deny: decreased hearing, ear discharge, earache, tinnitus Ears, nose, mouth and throat: Denies headache, Denies sore throat Cardiovascular: Reports shortness of breath Respiratory: Reports congestion, Reports dyspnea Gastrointestinal: Denies abdominal pain, Denies diarrhea, Denies nausea, Denies vomiting Genitourinary: Reports urinary frequency, Denies dysuria, Denies hematuria Menstruation: Reports period normal Musculoskeletal: Reports gait dysfunction, Reports low back pain, Reports muscle weakness Integumentary: Denies pruritus, Denies rash Neurological: Reports balance difficulties, Reports weakness Psychiatric: Denies anxiety, Denies depression Endocrine: Reports fatigue Hematologic/Lymphatic: Reports as per HPI Past Medical History Past Medical History: GERD/Reflux, Hyperlipidemia, Syncope Additional Past Medical History / Comment(s): Pt recently admitted to [facility] on 01/11/19 with UTI/pancreatitis. Other hx: Previous pancreatitis 10/2018, NIDDM type II-pt states she is waiting to get a glucometer, developmental delay, UTI, chronic low back pain, bulging discs, dental abscesses in past, pt states she "blacked out" - last Saturday, Jan 30, 2019. History of Any Multi-Drug Resistant Organisms: None Reported Past Surgical History: Tubal Ligation Additional Past Surgical History / Comment(s): Age 7 had VSD repair Past Anesthesia/Blood Transfusion Reactions: No Reported Reaction Past Psychological History: No Psychological Hx Reported Additional Psychological History / Comment(s): Pt resides with her fiancee. She uses no assistive devices. She does not drive. She gets to appointments by walking or using the bus system. She states she thinks she is suppose to be receiving a glucometer but has not received it yet. Smoking Status: Light tobacco smoker Past Alcohol Use History: None Reported Additional Past Alcohol Use History / Comment(s): Pt started smoking in 2000-04/09 ppd. Past Drug Use History: None Reported - Past Family History Mother Family Medical History: No Reported History Additional Family Medical History / Comment(s): Mother is healthy Father Family Medical History: No Reported History Additional Family Medical History / Comment(s): Father is healthy Medications and Allergies Home Medications Medication Instructions Recorded Confirmed Type Ibuprofen [Motrin] 800 mg PO Q6H PRN 10/14/18 02/04/19 History Esomeprazole Magnesium [NexIUM] 20 mg PO DAILY 01/15/19 02/04/19 History traMADol HCL [Ultram] 50 mg PO TID PRN 01/24/19 02/04/19 History Allergies Allergy/AdvReac Type Severity Reaction Status Date / Time No Known Allergies Allergy Verified 02/04/19 08:49 Physical Exam Vitals: Vital Signs Temp Pulse Pulse Resp BP Pulse Ox 02/05/19 16:14 86 02/05/19 16:05 84 02/05/19 14:06 100.9 F H 83 16 155/72 94 L 02/05/19 11:31 88 02/05/19 11:20 80 02/05/19 09:59 20 02/05/19 07:42 99.9 F H 82 20 131/68 92 L 02/05/19 07:13 84 02/05/19 07:04 86 02/05/19 05:21 99.6 F 64 20 130/63 94 L 02/04/19 20:40 99.8 F H 84 20 135/77 95 02/04/19 19:50 84 02/04/19 19:38 84 Intake and Output 02/05/19 02/05/19 02/05/19 06:59 14:59 22:59 Other: # Voids 3 4 Results CBC & Chem 7: 02/04/19 09:20 02/04/19 09:20 Labs: Abnormal Lab Results - Last 24 Hours (Table) 02/04/19 02/04/19 02/04/19 Range/Units 09:20 17:32 20:41 POC Glucose (mg/dL) 200 H (75-99) mg/dL Hemoglobin A1c 8.7 H (4.0-6.0) % Plasma Lactic Acid Travon 2.2 H* (0.7-2.0) mmol/L 02/05/19 02/05/19 02/05/19 Range/Units 07:05 11:46 17:00 POC Glucose (mg/dL) 250 H 208 H 248 H (75-99) mg/dL Hemoglobin A1c (4.0-6.0) % Plasma Lactic Acid Travon (0.7-2.0) mmol/L Microbiology - Last 24 Hours (Table) 02/04/19 13:39 Blood Culture - Preliminary Blood No Growth after 24 hours 02/04/19 10:02 Blood Culture - Preliminary Blood No Growth after 24 hours Chest x-ray: report reviewed CT scan - abdomen: report reviewed CT scan - chest: report reviewed CT scan - pelvis: report reviewed US - abdomen: report reviewed Assessment and Plan (1) Leukocytosis Narrative/Plan: This is an acute finding, with WBC normal earlier this month. Differential consist of predominant neutrophilia. This clinical picture, in the setting of recent pancreatitis and current probable pneumonia is most suggestive of reactive condition. Clinical suspicion for a primary hematologic disorder is extremely low. - The patient may have some underlying increase in marrow reactivity due to smoking as well as her periods. - I will check iron studies and inflammatory markers. At this time the expectation is that WBC will return to normal as her acute condition results Current Visit: Yes Status: Acute Code(s): D72.829 - ELEVATED WHITE BLOOD CELL COUNT, UNSPECIFIED SNOMED Code(s): 472239858 (2) Anemia Narrative/Plan: Anemia due to inflammation is most likely. As the patient is premenopausal, and has had recent hospitalization, deficiency states are also possible. Workup will be ordered for the same Current Visit: Yes Status: Acute Code(s): D64.9 - ANEMIA, UNSPECIFIED SNOMED Code(s): 294528206 Plan: defer to the Admitting service and other consultants for management for other medical problems, including presenting complaint of pneumonia
[2019-02-06] MEDS: SODIUM CHLORIDE 0.9% 1,000 ML IV SCH ×4 (00:48→21:45)
[2019-02-06] MEDS: PIPERACILLIN-TAZOBACTAM 3.375 GM in SODIUM CHLORIDE 0.9% 100 ML IVPB SCH ×3 (05:05→20:47)
[2019-02-06 07:03] LABS: Glucose,Whole Blood 222 mg/dL (75-99)
[2019-02-06] MEDS: PANTOPRAZOLE 40 MG TABLET PO SCH (07:42)
[2019-02-06] MEDS: INSULIN DETEMIR (LEVEMIR) 100 UNIT/ML SYR SQ SCH (07:42)
[2019-02-06] MEDS: INSULIN ASPART (NovoLOG) 100 UNIT/ML VIAL SQ SCH ×3 (07:42→17:43)
[2019-02-06] MEDS: ACETAMINOPHEN TAB 325 MG TAB PO PRN (07:42)
[2019-02-06] MEDS: IPRATROPIUM-ALBUTEROL 3 ML NEB INHALATION SCH ×4 (09:11→20:30)
[2019-02-06 11:57] LABS: Glucose,Whole Blood 195 mg/dL (75-99)
[2019-02-06 13:01] LABS: ALT 58 U/L (9-52); AST 42 U/L (14-36); African American GFR (CKD) >90 (>60 ml/min/1.73 sqM); Albumin 2.8 g/dL (3.5-5.0); Alkaline Phosphatase 160 U/L (38-126); Anion Gap 11 mmol/L; Blood Urea Nitrogen 9 mg/dL (7-17); Calcium 8.6 mg/dL (8.4-10.2); Carbon Dioxide 20 mmol/L (22-30); Chloride 108 mmol/L (98-107); Glucose 163 mg/dL (74-99); Potassium 3.8 mmol/L (3.5-5.1); Sodium 139 mmol/L (137-145); Total Bilirubin 0.5 mg/dL (0.2-1.3); Total Protein 5.8 g/dL (6.3-8.2)
[2019-02-06 13:17] LABS: Anisocytosis Slight; Basophils # (A) 0.2 k/uL (0-0.2); Basophils % (A) 2 %; Eosinophils # (A) 0.1 k/uL (0-0.7); Eosinophils % (A) 1 %; HCT 25.8 % (34.0-46.0); Hypochromasia Slight; Lymphocytes # (A) 1.4 k/uL (1.0-4.8); Lymphocytes % (A) 10 %; MCH 25.7 pg (25.0-35.0); MCHC 32.4 g/dL (31.0-37.0); MCV 79.4 fL (80.0-100.0); Microcytosis Slight; Monocytes # (A) 0.7 k/uL (0-1.0); Monocytes % (A) 5 %; Neutrophils # (A) 11.2 k/uL (1.3-7.7); Neutrophils % (A) 80 %; Platelet Count 389 k/uL (150-450); RBC 3.25 m/uL (3.80-5.40); RDW 17.2 % (11.5-15.5); WBC 13.9 k/uL (3.8-10.6)
[2019-02-06 13:18] LABS: HGB 8.4 gm/dL (11.4-16.0)
--- NOTE | 2019-02-06 13:55 | XR ---
EXAMINATION TYPE: XR chest 2V DATE OF EXAM: 02/06/2019 COMPARISON: 02/05/2019 INDICATION: Pneumonitis TECHNIQUE: Frontal and lateral views of the chest are obtained. FINDINGS: The heart size is normal. The pulmonary vasculature is normal. The lungs are clear. IMPRESSION: 1. No acute pulmonary process.
[2019-02-06] MEDS: traMADol 50 MG TAB PO PRN (14:38)
[2019-02-06] MEDS: LEVOFLOXACIN 750MG-D5W PMX 750 MG in DEXTROSE/WATER 1 150ML.BAG IVPB SCH (15:15)
--- NOTE | 2019-02-06 16:16 | CDI ---
Documentation Clarification Form Date: 02/06/2019 3:44:00 PM From: Laurie Kline RN, CCDS Admit Date: 02/06/2019 1:44:00 PM Patient Name: Dayna Le Visit Number: [id number] Discharge Date: ATTENTION: The Clinical Documentation Specialists (CDI) and [facility] Coding Staff appreciate your assistance in clarifying documentation. Please respond to the clarification below the line at the bottom and electronically sign. The CDI & [facility] Coding staff will review the response and follow-up if needed. Please note: Queries are made part of the Legal Health Record. If you have any questions, please contact the author of this message via ITS. Dr. Guillermo Cerda The patient presented with cough, occasional clear sputum. History/Risk Factors: GERD, Current every day smoker Clinical Indicators: 48-year-old female who present with complaints of cough, myalgias and fatigue. She feels chilled. Lab findings: WBC 34.8, Neutrophils 33.40, Lactic acid 2,6 Chest x-ray: No acute cardiopulmonary process Vital Signs: 148/64 97 18 102.8, 123/57 81 18 99.3, 99 % RA Other Clinical Indicators: Lungs: Rhonchi Treatment: Levaquin IV, Zosyn IV, IV fluids@ 130 mls/hr Duonebs Inhalations QID Monitor O2 Sat's Consults: Oncology (Dr. Fitzgerald) Acute finding current probable pneumonia is most suggestive of reactive condition. Clinical suspicion for primary hematologic disorder is extremely low. Anemia due to inflammation is most likely. In your professional opinion, can you please clarify the acuity and type of bronchitis? Acute Acute on chronic Other (please specify) Clinically unable to determine Please clarify the type of bronchitis Allergic Asthmatic Chronic obstructive bronchitis Obstructive bronchitis Other (please specify) Clinically unable to determine Unknown (Last Revision: July 2017) MTDD
[2019-02-06 17:17] LABS: Glucose,Whole Blood 158 mg/dL (75-99)
[2019-02-06 17:46] LABS: % Iron Saturation 6.2 (12.00-45.00)
--- NOTE | 2019-02-06 20:11 | PN ---
PROGRESS NOTE CHIEF COMPLAINT: Shortness of breath, cough and congestion with pneumonitis. HISTORY OF PRESENT ILLNESS: This lady is still very congested and short of breath. She is still running a low- grade temperature. She also brings up the fact that she recently fell and has discomfort in both knees and abrasions anteriorly on both lower extremities. PHYSICAL EXAMINATION: Chest demonstrates decreased breath sounds with scattered rales and rhonchi. Cardiac exam is normal. She has abrasions on both knees, but knees are stable and there are no effusions. IMPRESSION: 1. Pneumonitis. 2. Contusions and abrasions of the knees. PLAN: Repeat laboratory studies and chest x-ray today. MMODL / IJN: [id number] /
[2019-02-06 20:41] LABS: Glucose,Whole Blood 152 mg/dL (75-99)
[2019-02-07] MEDS: PIPERACILLIN-TAZOBACTAM 3.375 GM in SODIUM CHLORIDE 0.9% 100 ML IVPB SCH ×3 (05:18→20:21)
[2019-02-07] MEDS: SODIUM CHLORIDE 0.9% 1,000 ML IV SCH ×3 (05:19→20:25)
[2019-02-07] MEDS: ACETAMINOPHEN TAB 325 MG TAB PO PRN (05:35)
[2019-02-07] MEDS: PANTOPRAZOLE 40 MG TABLET PO SCH (07:29)
[2019-02-07] MEDS: INSULIN DETEMIR (LEVEMIR) 100 UNIT/ML SYR SQ SCH (07:29)
[2019-02-07] MEDS: INSULIN ASPART (NovoLOG) 100 UNIT/ML VIAL SQ SCH ×3 (07:29→17:19)
[2019-02-07 07:33] LABS: Glucose,Whole Blood 156 mg/dL (75-99)
[2019-02-07] MEDS: IPRATROPIUM-ALBUTEROL 3 ML NEB INHALATION SCH ×4 (08:31→19:33)
[2019-02-07] MEDS: traMADol 50 MG TAB PO PRN ×2 (09:40→19:09)
[2019-02-07 12:22] LABS: Glucose,Whole Blood 161 mg/dL (75-99)
[2019-02-07] MEDS: LEVOFLOXACIN 750MG-D5W PMX 750 MG in DEXTROSE/WATER 1 150ML.BAG IVPB SCH (15:05)
--- NOTE | 2019-02-07 16:26 | PN ---
PROGRESS NOTE CHIEF COMPLAINT: Pneumonitis and exacerbation of COPD. HISTORY OF PRESENT ILLNESS: This lady is doing well. Her breathing is slowly improving. She is less congested, but today she started to have nausea and vomiting. She is having no abdominal pain, fever and chills, etc. PHYSICAL EXAMINATION: Chest is clear. Cardiac exam is normal. Abdomen is soft, nontender. Bowel sounds are present. IMPRESSION: 1. Nausea and vomiting, etiology unknown. 2. Pneumonitis. PLAN: Hold discharge and treat her nausea. If nothing further develops, she should be able to be discharged tomorrow. MMODL / IJN: [id number] /
[2019-02-07 17:21] LABS: Glucose,Whole Blood 120 mg/dL (75-99)
[2019-02-07 20:14] LABS: Glucose,Whole Blood 182 mg/dL (75-99)
[2019-02-08] MEDS: PIPERACILLIN-TAZOBACTAM 3.375 GM in SODIUM CHLORIDE 0.9% 100 ML IVPB SCH ×3 (04:29→21:28)
[2019-02-08] MEDS: SODIUM CHLORIDE 0.9% 1,000 ML IV SCH ×3 (04:31→21:29)
[2019-02-08 07:14] LABS: Glucose,Whole Blood 156 mg/dL (75-99)
[2019-02-08] MEDS: IPRATROPIUM-ALBUTEROL 3 ML NEB INHALATION SCH ×4 (07:31→19:38)
[2019-02-08] MEDS: PANTOPRAZOLE 40 MG TABLET PO SCH (07:42)
[2019-02-08] MEDS: ACETAMINOPHEN TAB 325 MG TAB PO PRN (07:42)
[2019-02-08] MEDS: INSULIN ASPART (NovoLOG) 100 UNIT/ML VIAL SQ SCH ×3 (07:43→17:37)
[2019-02-08] MEDS: INSULIN DETEMIR (LEVEMIR) 100 UNIT/ML SYR SQ SCH (07:43)
[2019-02-08 12:04] LABS: Glucose,Whole Blood 135 mg/dL (75-99)
[2019-02-08] MEDS: traMADol 50 MG TAB PO PRN ×2 (12:35→21:28)
--- NOTE | 2019-02-08 14:16 | PN ---
PROGRESS NOTE CHIEF COMPLAINT: Exacerbation of COPD and pneumonitis with persistent nausea and vomiting. HISTORY OF PRESENT ILLNESS: This lady is still having trouble with vomiting. She has had no fever, chills, abdominal pain, etc. PHYSICAL EXAMINATION: Chest is now clear. Cardiac exam is normal and the abdomen is soft and nontender. It is protuberant. IMPRESSION: 1. Nausea and vomiting, etiology unknown. 2. Exacerbation of chronic obstructive pulmonary disease. PLAN: Antiemetics and hopefully discharge her in the next day or 2. MMODL / IJN: [id number] /
[2019-02-08] MEDS: LEVOFLOXACIN 750MG-D5W PMX 750 MG in DEXTROSE/WATER 1 150ML.BAG IVPB SCH (17:08)
[2019-02-08 17:13] LABS: Glucose,Whole Blood 136 mg/dL (75-99)
[2019-02-08 20:57] LABS: Glucose,Whole Blood 165 mg/dL (75-99)
[2019-02-09] MEDS: SODIUM CHLORIDE 0.9% 1,000 ML IV SCH ×3 (03:59→21:28)
[2019-02-09] MEDS: PIPERACILLIN-TAZOBACTAM 3.375 GM in SODIUM CHLORIDE 0.9% 100 ML IVPB SCH ×3 (05:10→21:27)
[2019-02-09 07:15] LABS: Glucose,Whole Blood 123 mg/dL (75-99)
[2019-02-09] MEDS: INSULIN DETEMIR (LEVEMIR) 100 UNIT/ML SYR SQ SCH (07:56)
[2019-02-09] MEDS: INSULIN ASPART (NovoLOG) 100 UNIT/ML VIAL SQ SCH ×3 (07:56→17:24)
[2019-02-09] MEDS: PANTOPRAZOLE 40 MG TABLET PO SCH (07:56)
[2019-02-09] MEDS: IPRATROPIUM-ALBUTEROL 3 ML NEB INHALATION SCH ×4 (08:02→19:31)
[2019-02-09] MEDS: traMADol 50 MG TAB PO PRN ×2 (08:08→19:07)
[2019-02-09 12:04] LABS: Glucose,Whole Blood 141 mg/dL (75-99)
[2019-02-09] MEDS ORDERED: LEVOFLOXACIN 750 MG TAB PO SCH (16:00)
[2019-02-09 17:06] LABS: Glucose,Whole Blood 117 mg/dL (75-99)
--- NOTE | 2019-02-09 17:57 | P.PN ---
Subjective Progress Note Date: 02/09/19 Principal diagnosis: Iron deficient anemia In follow-up today patient states feeling pretty well, she denies having any side effects or symptoms-ie: upset stomach or constipation-related to taking oral iron supplements. She denies difficulty in breathing, nausea or pain Objective - Vital Signs Vital signs: Vital Signs Temp 98.6 F 02/09/19 13:27 Pulse 63 02/09/19 13:27 Resp 14 02/09/19 13:27 BP 147/71 02/09/19 13:27 Pulse Ox 96 02/09/19 13:27 Intake & Output 02/08/19 02/09/19 02/09/19 18:59 06:59 18:59 Intake Total 1400 700 Balance 1400 700 Intake: IV 100 Piperacillin-Tazobactam 3 100 .375 gm In Sodium Chloride 0.9% 100 ml @ 25 mls/hr IVPB Q8H YARON Rx#: [id number] Intake, IV Titration 1000 700 Amount Piperacillin-Tazobactam 3 100 .375 gm In Sodium Chloride 0.9% 100 ml @ 25 mls/hr IVPB Q8H YARON Rx#: [id number] Sodium Chloride 0.9% 1, 1000 600 000 ml @ 130 mls/hr IV . Q7H42M YARON Rx#:[id number] Oral 300 Other: Voiding Method Toilet # Voids 4 - Constitutional General appearance: Present: average body habitus, cooperative, no acute distress - EENT Eyes: Present: anicteric sclerae, EOMI, poor dentition ENT: Present: hearing grossly normal - Respiratory Details: Respirations even and unlabored - Cardiovascular Details: Skin is warm and dry, radial pulses palpable 2+, regular - Peripheral edema leg Peripheral Edema: bilateral: None - Integumentary Integumentary: Present: pale - Neurologic Neurologic: Present: CNII-XII intact - Musculoskeletal Musculoskeletal: Present: strength equal bilaterally - Psychiatric Psychiatric: Present: A&O x's 3, appropriate affect, intact judgment & insight - Labs CBC & Chem 7: 02/06/19 12:23 02/06/19 12:23 Labs: Abnormal Lab Results - Last 24 Hours (Table) 02/06/19 02/08/19 02/09/19 Range/Units 08:17 20:53 07:12 POC Glucose (mg/dL) 165 H 123 H (75-99) mg/dL RBC Folate 985 H (280 - 791) ng/mL 02/09/19 02/09/19 Range/Units 12:02 17:04 POC Glucose (mg/dL) 141 H 117 H (75-99) mg/dL RBC Folate (280 - 791) ng/mL Microbiology - Last 24 Hours (Table) 02/04/19 13:39 Blood Culture - Preliminary Blood No Growth after 120 hours 02/04/19 10:02 Blood Culture - Preliminary Blood No Growth after 120 hours Assessment and Plan (1) Iron deficiency anemia Narrative/Plan: Hemoglobin is stable at this time. No transfusion needed. Iron studies reviewed. Parenteral iron 2 doses ordered. Oral iron twice a day. Rx sent to pharmacy. Follow-up with Dr. Fitzgerald in April. Patient was encouraged to seek medical attention for signs or symptoms of anemia in the meantime. Patient is encouraged to report any new symptoms to her primary care physician Dr. Cerda. Age-related cancer screenings-i.e. colonoscopy-begin at age 50, unless anemia persists or is progressive after iron supplementation. Current Visit: Yes Status: Acute Priority: High Code(s): D50.9 - IRON DEFICIENCY ANEMIA, UNSPECIFIED SNOMED Code(s): 59689075 (2) Leukocytosis Narrative/Plan: CBC in the a.m. but, white blood cells significantly reduced after admission and treatment of underlying infection. No further work up planned at this time Current Visit: Yes Status: Acute Priority: Medium Code(s): D72.829 - ELEVATED WHITE BLOOD CELL COUNT, UNSPECIFIED SNOMED Code(s): 133430231
[2019-02-09] MEDS: SODIUM FERRIC GLUCONAT-SUCROSE 125 MG in SODIUM CHLORIDE 0.9% 100 ML IVPB SCH (19:03)
[2019-02-09] MEDS: FERROUS SULFATE 325 MG TAB PO SCH (19:08)
--- NOTE | 2019-02-09 19:39 | PN ---
PROGRESS NOTE CHIEF COMPLAINT: Cough and nausea. HISTORY OF PRESENT ILLNESS: This lady is still complaining of nausea and upper abdominal pain. She is still coughing, but it is not productive. Laboratory studies reveal that her blood sugars are under control. PHYSICAL EXAM: Temperature is 98.6, blood pressure is 147/71, pulse 60, respirations of 14. Chest is clear. Cardiac exam is normal. Abdomen is soft, nontender. Extremities are normal. IMPRESSION: 1. Pneumonitis. 2. Persistent nausea, etiology unknown. PLAN: We will try to increase activity and we will make every effort to get her out of the hospital tomorrow. I cannot find any reason for her to have the nausea, vomiting, or upper abdominal pain. MMODL / IJN: [id number] /
[2019-02-09 21:23] LABS: Glucose,Whole Blood 140 mg/dL (75-99)
[2019-02-10] MEDS: PIPERACILLIN-TAZOBACTAM 3.375 GM in SODIUM CHLORIDE 0.9% 100 ML IVPB SCH (05:31)
[2019-02-10] MEDS: traMADol 50 MG TAB PO PRN (06:09)
[2019-02-10 07:38] LABS: Glucose,Whole Blood 142 mg/dL (75-99)
[2019-02-10] MEDS: INSULIN DETEMIR (LEVEMIR) 100 UNIT/ML SYR SQ SCH (07:38)
[2019-02-10] MEDS: FERROUS SULFATE 325 MG TAB PO SCH (07:38)
[2019-02-10] MEDS: INSULIN ASPART (NovoLOG) 100 UNIT/ML VIAL SQ SCH (07:39)
[2019-02-10] MEDS: PANTOPRAZOLE 40 MG TABLET PO SCH (08:36)
[2019-02-10] MEDS: SODIUM FERRIC GLUCONAT-SUCROSE 125 MG in SODIUM CHLORIDE 0.9% 100 ML IVPB SCH (08:37)
[2019-02-10 08:49] VITALS: BP 155/69; PULSE 65; RESP 20; TEMP 98.9
[2019-02-10] MEDS: IPRATROPIUM-ALBUTEROL 3 ML NEB INHALATION SCH ×2 (09:09→11:54)
[2019-02-10 11:09] LABS: Methylmalonic Acid 0.58 umol/L (<0.40)
--- NOTE | 2019-02-11 06:07 | DS ---
DISCHARGE SUMMARY CHIEF COMPLAINT: Cough, fever, shortness of breath. HISTORY OF PRESENT ILLNESS AND PHYSICAL EXAM: Details of this lady's history and physical can be found in the initial workup. COURSE IN THE HOSPITAL: After admission, she was placed on bedrest and started on intravenous fluids, updrafts, IV inhaled steroids and antibiotics. Chest slowly improved and it was thought that she probably had a bronchopneumonia. As she was improving, she started to developed epigastric pain with nausea and vomiting. This too began to subside and it was felt that she could be discharged home. She will be followed up in several days. During her hospitalization, her hemoglobin fell and this will be watched in the office when she comes in for followup. FINAL DIAGNOSES: 1. Bronchopneumonia. 2. Intractable nausea and vomiting. 3. Nicotine abuse. 4. Anemia. OPERATIONS: None. CONSULTATION: None. She is improved. MMODL / EVELINN: [id number] /
--- NOTE | 2019-02-11 09:53 | CDI ---
Documentation Clarification Form Date: 02/11/2019 9:41:38 AM From: Laurie Kline RN, CCDS Admit Date: 02/06/2019 1:44:00 PM Patient Name: Dayna Le Visit Number: [id number] Discharge Date: 02/10/2019 12:52:00 PM ATTENTION: The Clinical Documentation Specialists (CDI) and [facility] Coding Staff appreciate your assistance in clarifying documentation. Please respond to the clarification below the line at the bottom and electronically sign. The CDI & [facility] Coding staff will review the response and follow-up if needed. Please note: Queries are made part of the Legal Health Record. If you have any questions, please contact the author of this message via ITS. Dr. Guillermo Cerda The patient past medical history indicate Diabetes mellitus in your progress note on 02/05/19 and subsequent documentation, you have indicated uncontrolled diabetes mellitus: History/Risk Factors: Diabetes Mellitus, Pancreatitis Clinical Indicators: 48 year old with past medical history of Diabetes mellitus who present with complaints of feeling chilled. Vital signs on admission: 148/64 97 18 102.8 LABS: WBC 34.8, Glucose 321, 359, 200, 250 Treatment: Levemir 20 SQ daily, Novolog 6 units SQ AC-TID Blood sugar checks AC/HS In order to capture the severity of Illness and necessary documentation specificity, please clarify: DM Type 2 with Hyperglycemia Other, please specify Unable to Determine Please document any body system complications or specific manifestations related to the diabetes: Diabetic Nephropathy Diabetic Peripheral Vascular Disease Other condition (Last Revision: January 2017) MTDD
--- NOTE | 2019-02-11 10:21 | CDI ---
Documentation Clarification Form Date: 02/11/2019 10:03:08 AM From: Laurie Kline RN, CCDS Admit Date: 02/06/2019 1:44:00 PM Patient Name: Dayna Le Visit Number: [id number] Discharge Date: 02/10/2019 12:52:00 PM ATTENTION: The Clinical Documentation Specialists (CDI) and [facility] Coding Staff appreciate your assistance in clarifying documentation. Please respond to the clarification below the line at the bottom and electronically sign. The CDI & [facility] Coding staff will review the response and follow-up if needed. Please note: Queries are made part of the Legal Health Record. If you have any questions, please contact the author of this message via ITS. Dr. Guillermo Cerda The patient presented with cough, mayalgias and fatigue . History/Risk Factors: Pancreatitis, Hyperlipidemia, Clinical Indicators: 48-year-old with cough fatigue, fills chilled. WBC 18.3, 34.8, Chest CTA: scattered small nonspecific densities with in the right lung. Chest X-ray: no acute pulmonary proces Lactic acid: 2.6, 2.1, 2.1 Blood cultures: No growth after 144 hours UA: Leukocyte Esterase small, Urine Bacteria Rare, Urine wbc 19; Urine Culture Final Escherichia coli 02/04/19 presented to ED: 148/64 97 18 102.8 Vitals signs on admission 02/06/19: 147/68 67 16 Other Indicators: Emergency department assessment/evaluation: Urine is suspicion for sepsis Treatment: IV fluid bolus Zosyn IV Levaquin PO Duoneb's Inhalation per orders In your professional opinion, please clarify if these findings signify one of the following conditions, whether the condition is POA, and cause, if known: Condition Sepsis ruled in and present on admission Sepsis ruled out Other, please specify Unable to determine SIRS Criteria (2 or more of the following may indicate SIRS): -Temperature < 96.8F (36C) or > 101.0F (38.3C) -Heart Rate > 90 bpm -Respiratory Rate > 20 breaths/min or PaCO2 < 32 mmHg -White Blood Cell Count > 12,000 or < 4,000 cells/mm3 or > 10% bands -Lactate >2.0 mmol/L (>4.0 is equivalent to septic shock) (Last Revision: July 2017) MTDD
--- NOTE | 2019-02-14 20:13 | MISC ---
MISCELLANOUS REPORT Type 2 with hyperglycemia. Sepsis ruled out. MMODL / IJN: [id number] /
--- NOTE | 2019-02-16 08:59 | MISC ---
MISCELLANOUS REPORT Acute bronchitis, bacterial. MMODL / IJN: [id number] /
== END 2019-02-10 12:52 | disposition home or self-care (01) | DRG 194 ==
LOC: EC 08:32 → 4MS4W 13:00 → OBSVTOIN 02-06 13:44 → 6PED 02-09 22:49
PROVIDERS: ADMIT Family Medicine; ATTEND Family Medicine
PROC: 3E0234Z Introduction of Serum, Toxoid and Vaccine into Muscle, Percutaneous Approach (ICD-10-PCS; principal; 2019-02-04)
DX: J18.0 Bronchopneumonia, unspecified organism (principal); J44.0 Chronic obstructive pulmonary disease with (acute) lower respiratory infection; J44.1 Chronic obstructive pulmonary disease with (acute) exacerbation; E11.65 Type 2 diabetes mellitus with hyperglycemia; D50.9 Iron deficiency anemia, unspecified; J20.9 Acute bronchitis, unspecified; K59.03 Drug induced constipation; T45.4X5A Adverse effect of iron and its compounds, initial encounter; Z23 Encounter for immunization; S80.212A Abrasion, left knee, initial encounter; S80.211A Abrasion, right knee, initial encounter; E78.5 Hyperlipidemia, unspecified; F89 Unspecified disorder of psychological development; R11.2 Nausea with vomiting, unspecified; R10.13 Epigastric pain; K21.9 Gastro-esophageal reflux disease without esophagitis; G89.29 Other chronic pain; M54.5 Low back pain; F17.210 Nicotine dependence, cigarettes, uncomplicated; Z71.6 Tobacco abuse counseling; Z79.899 Other long term (current) drug therapy; Z87.74 Personal history of (corrected) congenital malformations of heart and circulatory system; Z98.51 Tubal ligation status; Z87.19 Personal history of other diseases of the digestive system; Z87.440 Personal history of urinary (tract) infections; W19.XXXA Unspecified fall, initial encounter
CPT/HCPCS: 36415; 71046; 71275; 80053; 81001; 82607; 82728; 82747; 83036; 83540; 83550; 83605; 83921; 85025; 85610; 85730; 87040; 87502; 93005; 94640; 94760; 96361; 96365; 96367; 99291

== ENCOUNTER 2019-02-12 00:36 | Emergency (ER) | payer MEDICARE ==
--- NOTE | 2019-02-12 00:41 | ED ---
General Adult HPI - General Stated complaint: Chest pain Time Seen by Provider: 02/12/19 00:38 - History of Present Illness Initial comments: Dayna is a pleasant 48-year-old female with history of cognitive delay was recently admitted to the hospital for suspected bronchial pneumonia, her admission was complicated by development of nausea and vomiting. Patient was treated with antibiotics and antiemetics and subsequently discharged home for outpatient follow-up. Patient states that since discharge she hasn't filled any of her prescriptions and she returns to the emergency Department today with persistent pleuritic like chest pain, no productive cough no fever no chills. In addition patient reports she's continued to feel nauseated though she's been eating and drinking well and is not vomiting. - Related Data Home Medications Medication Instructions Recorded Confirmed Ibuprofen [Motrin] 800 mg PO Q6H PRN 10/14/18 02/04/19 Esomeprazole Magnesium [NexIUM] 20 mg PO DAILY 01/15/19 02/04/19 traMADol HCL [Ultram] 50 mg PO TID PRN 01/24/19 02/04/19 Previous Rx's Medication Instructions Recorded Ferrous Sulfate [Iron (65 MG 325 mg PO BID #60 tab 02/09/19 Elemental)] INSULIN ASPART (NovoLOG) [NovoLOG 6 unit SQ AC-TID #1 vial 02/10/19 (formulary)] Insulin Detemir (Levemir) [Levemir] 20 unit SQ DAILY@0700 30 Days #1 02/10/19 pen Levofloxacin [Levaquin] 750 mg PO Q24H #7 tab 02/10/19 Allergies Allergy/AdvReac Type Severity Reaction Status Date / Time No Known Allergies Allergy Verified 02/04/19 08:49 Review of Systems ROS Statement: Those systems with pertinent positive or pertinent negative responses have been documented in the HPI. ROS Other: All systems not noted in ROS Statement are negative. Past Medical History Past Medical History: GERD/Reflux, Hyperlipidemia, Syncope Additional Past Medical History / Comment(s): Pt recently admitted to [facility] on 01/11/19 with UTI/pancreatitis. Other hx: Previous pancreatitis 10/2018, NIDDM type II-pt states she is waiting to get a glucometer, developmental delay, UTI, chronic low back pain, bulging discs, dental abscesses in past, pt states she "blacked out" - last Saturday, Jan 30, 2019. History of Any Multi-Drug Resistant Organisms: None Reported Past Surgical History: Tubal Ligation Additional Past Surgical History / Comment(s): Age 7 had VSD repair Past Anesthesia/Blood Transfusion Reactions: No Reported Reaction Past Psychological History: No Psychological Hx Reported Additional Psychological History / Comment(s): Pt resides with her fiancee. She uses no assistive devices. She does not drive. She gets to appointments by walking or using the bus system. She states she thinks she is suppose to be receiving a glucometer but has not received it yet. Smoking Status: Light tobacco smoker Past Alcohol Use History: None Reported Additional Past Alcohol Use History / Comment(s): Pt started smoking in 2000-04/09 ppd. Past Drug Use History: None Reported - Past Family History Mother Family Medical History: No Reported History Additional Family Medical History / Comment(s): Mother is healthy Father Family Medical History: No Reported History Additional Family Medical History / Comment(s): Father is healthy General Exam - General Exam Comments Initial Comments: Physical Exam GENERAL: Patient is well-developed and well-nourished. Patient is nontoxic and well- hydrated and is in no distress. HENT: Normocephalic, Atraumatic. EYES: PERRL, EOMI PULMONARY: Unlabored respirations. No audible rales rhonchi or wheezing was noted. CARDIOVASCULAR: RRR ABDOMEN: Soft and nontender with normal bowel sounds. SKIN: Skin is clear with no lesions or rashes and otherwise unremarkable. : Deferred NEUROLOGIC: Patient is alert and oriented x3. Moving all extremities spontaneously MUSCULOSKELETAL: Normal extremities with adequate strength and full range of motion. No lower extremity swelling or edema. No calf tenderness. PSYCHIATRIC: Normal psychiatric evaluation. Course Vital Signs 02/12/19 02/12/19 02/12/19 00:41 01:14 02:00 Temperature 99.7 F H Pulse Rate 65 61 Respiratory 20 20 22 Rate Blood Pressure 164/87 151/77 O2 Sat by Pulse 95 96 Oximetry 02/12/19 03:00 Temperature Pulse Rate 64 Respiratory 20 Rate Blood Pressure 156/71 O2 Sat by Pulse 95 Oximetry EKG Findings - EKG Comments: EKG Findings:: EKG was obtained due to complaint chest pain, EKG obtained at 1:22 AM, rate of 70, sinus rhythm, leftward axis, normal intervals, NJ 152, QRS 78, QTC 447. There are no acute ST elevations or depressions no evidence of acute ischemia or infarction. Medical Decision Making - Medical Decision Making Patient was seen and evaluated, history is obtained from patient as well as review of medical record. Patient with persistent pleuritic like atypical chest pain. No shortness breath no fevers no chills. Patient also reports she's been nauseated since developing symptoms. She did not get any of her home medications filled upon discharge from the hospital. She has not follow-up with her primary care physician. Exam was unremarkable, EKG is nonischemic, chest x-rays no acute findings Labs with leukocytosis only mildly worsened from previous, chronic anemia, elevated platelets likely reactive to recent illness. Upon reevaluation patient has arty called her right home. Patient's feeling w ell comfortable with plan for discharge home will be given Zofran advised to follow-up - Lab Data Result diagrams: 02/12/19 01:25 02/12/19 01:25 Lab Results 02/12/19 02/12/19 02/12/19 Range/Units 01:25 01:25 01:25 WBC 15.5 H (3.8-10.6) k/uL RBC 4.02 (3.80-5.40) m/uL Hgb 9.7 L (11.4-16.0) gm/dL Hct 31.7 L (34.0-46.0) % MCV 78.9 L (80.0-100.0) fL MCH 24.1 L (25.0-35.0) pg MCHC 30.5 L (31.0-37.0) g/dL RDW 18.0 H (11.5-15.5) % Plt Count 861 H D (150-450) k/uL Neutrophils % 78 % Lymphocytes % 14 % Monocytes % 2 % Eosinophils % 2 % Basophils % 2 % Neutrophils # 12.2 H (1.3-7.7) k/uL Lymphocytes # 2.2 (1.0-4.8) k/uL Monocytes # 0.4 (0-1.0) k/uL Eosinophils # 0.3 (0-0.7) k/uL Basophils # 0.3 H (0-0.2) k/uL Hypochromasia Slight Anisocytosis Slight Microcytosis Slight PT 9.8 (9.0-12.0) sec INR 0.9 (<1.2) APTT 24.7 (22.0-30.0) sec Sodium 140 (137-145) mmol/L Potassium 3.5 (3.5-5.1) mmol/L Chloride 103 (98-107) mmol/L Carbon Dioxide 27 (22-30) mmol/L Anion Gap 10 mmol/L BUN 15 (7-17) mg/dL Creatinine 0.72 (0.52-1.04) mg/dL Est GFR (CKD-EPI)AfAm >90 (>60 ml/min/1.73 sqM) Est GFR (CKD-EPI)NonAf >90 (>60 ml/min/1.73 sqM) Glucose 212 H (74-99) mg/dL Calcium 8.6 (8.4-10.2) mg/dL Magnesium 1.6 (1.6-2.3) mg/dL Total Bilirubin 0.2 (0.2-1.3) mg/dL AST 37 H (14-36) U/L ALT 41 (9-52) U/L Alkaline Phosphatase 141 H (38-126) U/L Troponin I (0.000-0.034) ng/mL Total Protein 6.7 (6.3-8.2) g/dL Albumin 3.4 L (3.5-5.0) g/dL 02/12/19 Range/Units 01:25 WBC (3.8-10.6) k/uL RBC (3.80-5.40) m/uL Hgb (11.4-16.0) gm/dL Hct (34.0-46.0) % MCV (80.0-100.0) fL MCH (25.0-35.0) pg MCHC (31.0-37.0) g/dL RDW (11.5-15.5) % Plt Count (150-450) k/uL Neutrophils % % Lymphocytes % % Monocytes % % Eosinophils % % Basophils % % Neutrophils # (1.3-7.7) k/uL Lymphocytes # (1.0-4.8) k/uL Monocytes # (0-1.0) k/uL Eosinophils # (0-0.7) k/uL Basophils # (0-0.2) k/uL Hypochromasia Anisocytosis Microcytosis PT (9.0-12.0) sec INR (<1.2) APTT (22.0-30.0) sec Sodium (137-145) mmol/L Potassium (3.5-5.1) mmol/L Chloride (98-107) mmol/L Carbon Dioxide (22-30) mmol/L Anion Gap mmol/L BUN (7-17) mg/dL Creatinine (0.52-1.04) mg/dL Est GFR (CKD-EPI)AfAm (>60 ml/min/1.73 sqM) Est GFR (CKD-EPI)NonAf (>60 ml/min/1.73 sqM) Glucose (74-99) mg/dL Calcium (8.4-10.2) mg/dL Magnesium (1.6-2.3) mg/dL Total Bilirubin (0.2-1.3) mg/dL AST (14-36) U/L ALT (9-52) U/L Alkaline Phosphatase (38-126) U/L Troponin I <0.012 (0.000-0.034) ng/mL Total Protein (6.3-8.2) g/dL Albumin (3.5-5.0) g/dL Disposition Clinical Impression: Atypical chest pain Disposition: HOME SELF-CARE Condition: Stable Instructions (If sedation given, give patient instructions): Costochondritis (ED) Is patient prescribed a controlled substance at d/c from ED?: No Referrals: Guillermo Cerda MD [Primary Care Provider] - 1-2 days
[2019-02-12 00:46] VITALS: RESP 20; TEMP 99.7
[2019-02-12] MEDS ORDERED: SODIUM CHLORIDE 0.9% 1,000 ML IV STA (00:57)
[2019-02-12 01:39] LABS: Anisocytosis Slight; Basophils # (A) 0.3 k/uL (0-0.2); Basophils % (A) 2 %; Eosinophils # (A) 0.3 k/uL (0-0.7); Eosinophils % (A) 2 %; HCT 31.7 % (34.0-46.0); HGB 9.7 gm/dL (11.4-16.0); Hypochromasia Slight; Lymphocytes # (A) 2.2 k/uL (1.0-4.8); Lymphocytes % (A) 14 %; MCH 24.1 pg (25.0-35.0); MCHC 30.5 g/dL (31.0-37.0); MCV 78.9 fL (80.0-100.0); Mean Platelet Volume 6.6; Microcytosis Slight; Monocytes # (A) 0.4 k/uL (0-1.0); Monocytes % (A) 2 %; Neutrophils # (A) 12.2 k/uL (1.3-7.7); Neutrophils % (A) 78 %; RBC 4.02 m/uL (3.80-5.40); WBC 15.5 k/uL (3.8-10.6)
--- NOTE | 2019-02-12 01:44 | XR ---
EXAMINATION TYPE: XR chest 2V DATE OF EXAM: 02/12/2019 COMPARISON: NONE HISTORY: Cough TECHNIQUE: Frontal and lateral views of the chest are obtained. FINDINGS: Heart and mediastinum are normal. Lungs are clear. Diaphragm is normal. Bony thorax appear s intact. The pulmonary vascularity is normal. IMPRESSION: No active cardiopulmonary disease. No change.
[2019-02-12 01:47] LABS: Platelet Count 861 k/uL (150-450)
[2019-02-12 01:49] LABS: INR 0.9 (<1.2); Partial Thromboplastin Time 24.7 sec (22.0-30.0); Prothrombin Time 9.8 sec (9.0-12.0)
[2019-02-12 01:51] LABS: ALT 41 U/L (9-52); AST 37 U/L (14-36); African American GFR (CKD) >90 (>60 ml/min/1.73 sqM); Albumin 3.4 g/dL (3.5-5.0); Alkaline Phosphatase 141 U/L (38-126); Anion Gap 10 mmol/L; Blood Urea Nitrogen 15 mg/dL (7-17); Calcium 8.6 mg/dL (8.4-10.2); Carbon Dioxide 27 mmol/L (22-30); Chloride 103 mmol/L (98-107); Glucose 212 mg/dL (74-99); Magnesium 1.6 mg/dL (1.6-2.3); Potassium 3.5 mmol/L (3.5-5.1); Sodium 140 mmol/L (137-145); Total Bilirubin 0.2 mg/dL (0.2-1.3); Total Protein 6.7 g/dL (6.3-8.2)
[2019-02-12] MEDS ORDERED: ONDANSETRON 4 MG ODT STARTER PACK 2 TAB BTL PO STA (03:08)
[2019-02-12 03:22] VITALS: BP 156/71; PULSE 64
== END 2019-02-12 03:38 | disposition home or self-care (01) ==
LOC: EC 00:36
DX: R07.89 Other chest pain (principal); R11.2 Nausea with vomiting, unspecified; K21.9 Gastro-esophageal reflux disease without esophagitis; E11.9 Type 2 diabetes mellitus without complications; E78.5 Hyperlipidemia, unspecified; F17.200 Nicotine dependence, unspecified, uncomplicated; Z79.899 Other long term (current) drug therapy
CPT/HCPCS: 36415; 93005; 80053; 83735; 84484; 85025; 85610; 85730; 71046; 99285; 96360; 96361; S0119

== ENCOUNTER 2019-03-05 10:49 | Emergency (ER) | payer MEDICARE, OTHER ==
[2019-03-05] MEDS ORDERED: SODIUM CHLORIDE 0.9% 500 ML 500 ML IV STA (10:56)
[2019-03-05 10:57] VITALS: TEMP 97.9
[2019-03-05 11:35] LABS: Anisocytosis Slight; Basophils % (A) 1 %; Eosinophils # (A) 0.2 k/uL (0-0.7); Eosinophils % (A) 3 %; HCT 38.4 % (34.0-46.0); HGB 12.2 gm/dL (11.4-16.0); Hypochromasia Marked; Lymphocytes # (A) 1.6 k/uL (1.0-4.8); Lymphocytes % (A) 23 %; MCH 26.3 pg (25.0-35.0); MCHC 31.8 g/dL (31.0-37.0); MCV 82.6 fL (80.0-100.0); Mean Platelet Volume 5.9; Microcytosis Slight; Monocytes # (A) 0.3 k/uL (0-1.0); Monocytes % (A) 5 %; Neutrophils # (A) 4.6 k/uL (1.3-7.7); Neutrophils % (A) 68 %; Platelet Count 389 k/uL (150-450); RBC 4.65 m/uL (3.80-5.40); RDW 17.4 % (11.5-15.5); WBC 6.8 k/uL (3.8-10.6)
--- NOTE | 2019-03-05 11:37 | ED ---
General Adult HPI - General Chief complaint: Abdominal Pain Stated complaint: Chest Pain Time Seen by Provider: 03/05/19 10:51 Source: EMS, RN notes reviewed, old records reviewed Mode of arrival: EMS Limitations: no limitations - History of Present Illness Initial comments: 48 old female patient past history significant for developmental delay presents ED chief complaint of chest pain and abdominal pain. Patient reports that the symptoms began yesterday. Patient reports that her abdominal pain is located in the suprapubic quadrant. Patient reports that she also has a cough. Reports chest pain only with coughing. Denies any chest pain at baseline. Reports that is substernal nature. Denies any fevers or chills. Reports of nausea without emesis. Denies any shortness of breath. Denies any other complaints. Systemic: Pt denies fatigue, fever/chills, rash. Pt denies weakness, night sweats, weight loss. Neuro: Pt denies headache, visual disturbances, syncope or pre-syncope. HEENT: Pt denies ocular discharge or irritation, otalgia, rhinorrhea, pharyngitis or notable lymphadenopathy. Cardiopulmonary: Pt denies chest pain, SOB, heart palpitations, dyspnea on exertion. Abdominal/GI: Pt denies abdominal pain, n/v/d. : Pt denies dysuria, burning w/ urination, frequency/urgency. Denies new onset urinary or bowel incontinence. MSK: Pt denies myalgia, loss of strength or function in extremities. Neuro: Pt denies new onset weakness, paresthesias. - Related Data Home Medications Medication Instructions Recorded Confirmed Ibuprofen [Motrin] 800 mg PO Q6H PRN 10/14/18 03/05/19 Esomeprazole Magnesium [NexIUM] 20 mg PO DAILY 01/15/19 03/05/19 traMADol HCL [Ultram] 50 mg PO TID PRN 01/24/19 03/05/19 Previous Rx's Medication Instructions Recorded Ferrous Sulfate [Iron (65 MG 325 mg PO BID #60 tab 02/09/19 Elemental)] INSULIN ASPART (NovoLOG) [NovoLOG 6 unit SQ AC-TID #1 vial 02/10/19 (formulary)] Insulin Detemir (Levemir) [Levemir] 20 unit SQ DAILY@0700 30 Days #1 02/10/19 pen Allergies Allergy/AdvReac Type Severity Reaction Status Date / Time No Known Allergies Allergy Verified 03/05/19 13:25 Review of Systems ROS Statement: Those systems with pertinent positive or pertinent negative responses have been documented in the HPI. ROS Other: All systems not noted in ROS Statement are negative. Past Medical History Past Medical History: GERD/Reflux, Hyperlipidemia, Syncope Additional Past Medical History / Comment(s): Pt recently admitted to [facility] on 01/11/19 with UTI/pancreatitis. Other hx: Previous pancreatitis 10/2018, NIDDM type II-pt states she is waiting to get a glucometer, developmental delay, UTI, chronic low back pain, bulging discs, dental abscesses in past, pt states she "blacked out" - last Saturday, Jan 30, 2019. History of Any Multi-Drug Resistant Organisms: None Reported Past Surgical History: Tubal Ligation Additional Past Surgical History / Comment(s): Age 7 had VSD repair Past Anesthesia/Blood Transfusion Reactions: No Reported Reaction Past Psychological History: No Psychological Hx Reported Smoking Status: Light tobacco smoker Past Alcohol Use History: None Reported Past Drug Use History: None Reported - Past Family History Mother Family Medical History: No Reported History Additional Family Medical History / Comment(s): Mother is healthy Father Family Medical History: No Reported History Additional Family Medical History / Comment(s): Father is healthy General Exam - General Exam Comments Initial Comments: Constitutional: NAD, AOX3, Pt has pleasant affect. HEENT: NC/AT, trachea midline, neck supple, no lymphadenopathy. Posterior pharynx non erythematous, without exudates. External ears appear normal, without discharge. Mucous membranes moist. Eyes PERRLA, EOM intact. There is no scleral icterus. No pallor noted. Cardiopulmonary: RRR, no murmurs, rubs or gallops, no JVD noted. Lungs CTAB in anterior and posterior chandler. No peripheral edema. Abdominal exam: Abdomen soft and non-distended. Abdomen tender to palpation suprapubic region. No other areas abdominal tenderness. Repeat abdominal exam reveals nonacute nontender abdomen.. Bowel sounds active in LLQ. No hepatosplenomegaly. No ecchymosis Neuro: CN II-XII intact. No nuchal rigidity. No raccon eyes, no hudson sign, no hemotympanum. No cervical spinal tenderness. MSK: No posterior calf tenderness bilaterally, homans sign negative bilaterally. Posterior tibialis and radial pulse +2 bilaterally. Sensation intact in upper and lower extremities. Full active ROM in upper and lower extremities, 5/5 stregnth. Limitations: no limitations Course Vital Signs 03/05/19 03/05/19 10:53 15:32 Temperature 97.9 F Pulse Rate 66 64 Respiratory 16 18 Rate Blood Pressure 158/98 162/81 O2 Sat by Pulse 96 Oximetry Medical Decision Making - Medical Decision Making 48 old female patient past history significant for developmental delay presents ED chief complaint of chest pain and abdominal pain. Patient reports that the symptoms began yesterday. Patient reports that her abdominal pain is located in the suprapubic quadrant. Patient reports that she also has a cough. Reports chest pain only with coughing. Denies any chest pain at baseline. Reports that is substernal nature. Denies any fevers or chills. Reports of nausea without emesis. Denies any shortness of breath. Denies any other complaints. Patient vital signs stable, afebrile. Physical exam displayed very mild amount of suprapubic abdominal discomfort. Laboratory investigations are significant for mild hyperglycemia. Lactic acid 3.3. Troponin is negative. Lipase within normal limits. UA negative. EKG nonischemic. Repeat EKG nonischemic. Patient reports that abdominal, chest pain resolved without intervention. Chest x-ray is negative. EKG 2 negative. Nonischemic. Patient feeling much improved. She'll be discharged with follow-up with primary care provider will return to ER physician worsens. Case discussed with Dr. De Los Santos. - Lab Data Result diagrams: 03/05/19 11:00 03/05/19 12:53 Lab Results 03/05/19 03/05/19 03/05/19 Range/Units 11:00 11:00 11:00 WBC 6.8 (3.8-10.6) k/uL RBC 4.65 (3.80-5.40) m/uL Hgb 12.2 (11.4-16.0) gm/dL Hct 38.4 (34.0-46.0) % MCV 82.6 (80.0-100.0) fL MCH 26.3 (25.0-35.0) pg MCHC 31.8 (31.0-37.0) g/dL RDW 17.4 H (11.5-15.5) % Plt Count 389 (150-450) k/uL Neutrophils % 68 % Lymphocytes % 23 % Monocytes % 5 % Eosinophils % 3 % Basophils % 1 % Neutrophils # 4.6 (1.3-7.7) k/uL Lymphocytes # 1.6 (1.0-4.8) k/uL Monocytes # 0.3 (0-1.0) k/uL Eosinophils # 0.2 (0-0.7) k/uL Basophils # 0.0 (0-0.2) k/uL Hypochromasia Marked Anisocytosis Slight Microcytosis Slight Sodium (137-145) mmol/L Potassium (3.5-5.1) mmol/L Chloride (98-107) mmol/L Carbon Dioxide (22-30) mmol/L Anion Gap mmol/L BUN (7-17) mg/dL Creatinine (0.52-1.04) mg/dL Est GFR (CKD-EPI)AfAm (>60 ml/min/1.73 sqM) Est GFR (CKD-EPI)NonAf (>60 ml/min/1.73 sqM) Glucose (74-99) mg/dL Lactic Ac Sepsis Rflx Plasma Lactic Acid Travon 3.3 H* (0.7-2.0) mmol/L Calcium (8.4-10.2) mg/dL Total Bilirubin (0.2-1.3) mg/dL AST (14-36) U/L ALT (9-52) U/L Alkaline Phosphatase (38-126) U/L Troponin I <0.012 (0.000-0.034) ng/mL Total Protein (6.3-8.2) g/dL Albumin (3.5-5.0) g/dL Lipase (23-300) U/L Urine Color Urine Appearance (Clear) Urine pH (5.0-8.0) Ur Specific [place] (1.001-1.035) Urine Protein (Negative) Urine Glucose (UA) (Negative) Urine Ketones (Negative) Urine Blood (Negative) Urine Nitrite (Negative) Urine Bilirubin (Negative) Urine Urobilinogen (<2.0) mg/dL Ur Leukocyte Esterase (Negative) Urine RBC (0-5) /hpf Urine WBC (0-5) /hpf Ur Squamous Epith Cells (0-4) /hpf Hyaline Casts (0-2) /lpf Urine Mucus (None) /hpf 03/05/19 03/05/19 03/05/19 Range/Units 12:04 12:53 14:21 WBC (3.8-10.6) k/uL RBC (3.80-5.40) m/uL Hgb (11.4-16.0) gm/dL Hct (34.0-46.0) % MCV (80.0-100.0) fL MCH (25.0-35.0) pg MCHC (31.0-37.0) g/dL RDW (11.5-15.5) % Plt Count (150-450) k/uL Neutrophils % % Lymphocytes % % Monocytes % % Eosinophils % % Basophils % % Neutrophils # (1.3-7.7) k/uL Lymphocytes # (1.0-4.8) k/uL Monocytes # (0-1.0) k/uL Eosinophils # (0-0.7) k/uL Basophils # (0-0.2) k/uL Hypochromasia Anisocytosis Microcytosis Sodium 140 (137-145) mmol/L Potassium 4.1 (3.5-5.1) mmol/L Chloride 109 H (98-107) mmol/L Carbon Dioxide 22 (22-30) mmol/L Anion Gap 9 mmol/L BUN 13 (7-17) mg/dL Creatinine 0.72 (0.52-1.04) mg/dL Est GFR (CKD-EPI)AfAm >90 (>60 ml/min/1.73 sqM) Est GFR (CKD-EPI)NonAf >90 (>60 ml/min/1.73 sqM) Glucose 231 H (74-99) mg/dL Lactic Ac Sepsis Rflx Y Plasma Lactic Acid Travon (0.7-2.0) mmol/L Calcium 8.8 (8.4-10.2) mg/dL Total Bilirubin 0.3 (0.2-1.3) mg/dL AST 24 (14-36) U/L ALT 28 (9-52) U/L Alkaline Phosphatase 105 (38-126) U/L Troponin I (0.000-0.034) ng/mL Total Protein 6.8 (6.3-8.2) g/dL Albumin 3.8 (3.5-5.0) g/dL Lipase 233 (23-300) U/L Urine Color Yellow Urine Appearance Cloudy H (Clear) Urine pH 5.5 (5.0-8.0) Ur Specific [place] 1.016 (1.001-1.035) Urine Protein 1+ H (Negative) Urine Glucose (UA) Negative (Negative) Urine Ketones Negative (Negative) Urine Blood Negative (Negative) Urine Nitrite Negative (Negative) Urine Bilirubin Negative (Negative) Urine Urobilinogen <2.0 (<2.0) mg/dL Ur Leukocyte Esterase Negative (Negative) Urine RBC 1 (0-5) /hpf Urine WBC 3 (0-5) /hpf Ur Squamous Epith Cells 9 H (0-4) /hpf Hyaline Casts 1 (0-2) /lpf Urine Mucus Rare H (None) /hpf 03/05/19 Range/Units 16:00 WBC (3.8-10.6) k/uL RBC (3.80-5.40) m/uL Hgb (11.4-16.0) gm/dL Hct (34.0-46.0) % MCV (80.0-100.0) fL MCH (25.0-35.0) pg MCHC (31.0-37.0) g/dL RDW (11.5-15.5) % Plt Count (150-450) k/uL Neutrophils % % Lymphocytes % % Monocytes % % Eosinophils % % Basophils % % Neutrophils # (1.3-7.7) k/uL Lymphocytes # (1.0-4.8) k/uL Monocytes # (0-1.0) k/uL Eosinophils # (0-0.7) k/uL Basophils # (0-0.2) k/uL Hypochromasia Anisocytosis Microcytosis Sodium (137-145) mmol/L Potassium (3.5-5.1) mmol/L Chloride (98-107) mmol/L Carbon Dioxide (22-30) mmol/L Anion Gap mmol/L BUN (7-17) mg/dL Creatinine (0.52-1.04) mg/dL Est GFR (CKD-EPI)AfAm (>60 ml/min/1.73 sqM) Est GFR (CKD-EPI)NonAf (>60 ml/min/1.73 sqM) Glucose (74-99) mg/dL Lactic Ac Sepsis Rflx Plasma Lactic Acid Travon 2.0 (0.7-2.0) mmol/L Calcium (8.4-10.2) mg/dL Total Bilirubin (0.2-1.3) mg/dL AST (14-36) U/L ALT (9-52) U/L Alkaline Phosphatase (38-126) U/L Troponin I (0.000-0.034) ng/mL Total Protein (6.3-8.2) g/dL Albumin (3.5-5.0) g/dL Lipase (23-300) U/L Urine Color Urine Appearance (Clear) Urine pH (5.0-8.0) Ur Specific [place] (1.001-1.035) Urine Protein (Negative) Urine Glucose (UA) (Negative) Urine Ketones (Negative) Urine Blood (Negative) Urine Nitrite (Negative) Urine Bilirubin (Negative) Urine Urobilinogen (<2.0) mg/dL Ur Leukocyte Esterase (Negative) Urine RBC (0-5) /hpf Urine WBC (0-5) /hpf Ur Squamous Epith Cells (0-4) /hpf Hyaline Casts (0-2) /lpf Urine Mucus (None) /hpf - EKG Data -: EKG Interpreted by Me (and Dr. Ratliff ) EKG Comments: 1) Ventricular rate 64, when necessary for 156, QRS 84, QT/QTc 46S 14. Normal sinus rhythm, left ventricular hypertrophy with repolarization abnormality. Nonspecific ST-T wave abnormality. Abnormal ECG. No concern for acute ischemia at this time. 2) ventricular rate 55, AZ interval 168, QRS 80, QT/QTc 462/4.1. Sinus bradycardia, several infarct age indeterminate. Abnormal EKG. No significant triana from prior. No concern for acute ischemia. Disposition Clinical Impression: Abdominal pain, Cough Disposition: HOME SELF-CARE Condition: Stable Instructions (If sedation given, give patient instructions): Abdominal Pain (ED), Acute Cough (ED) Additional Instructions: Follow-up with primary care provider tomorrow. Return to ER if condition worsens in any way. Is patient prescribed a controlled substance at d/c from ED?: No Referrals: Guillermo Cerda MD [Primary Care Provider] - 1-2 days
--- NOTE | 2019-03-05 11:37 | XR ---
EXAMINATION TYPE: XR chest 2V DATE OF EXAM: 03/05/2019 COMPARISON: Chest x-ray February 12, 2019. HISTORY: Chest and abdominal pain. TECHNIQUE: Frontal and lateral views of the chest are obtained. FINDINGS: Overlying EKG leads are seen. There is no focal air space opacity, pleural effusion, or pne umothorax seen. The cardiac silhouette size is within normal limits. The osseous structures are in tact. IMPRESSION: No acute cardiopulmonary process. No significant change from prior.
[2019-03-05] MEDS ORDERED: SODIUM CHLORIDE 0.9% 1,000 ML IV STA ×2 (12:06→14:50)
[2019-03-05 13:12] LABS: ALT 28 U/L (9-52); AST 24 U/L (14-36); African American GFR (CKD) >90 (>60 ml/min/1.73 sqM); Albumin 3.8 g/dL (3.5-5.0); Alkaline Phosphatase 105 U/L (38-126); Anion Gap 9 mmol/L; Blood Urea Nitrogen 13 mg/dL (7-17); Calcium 8.8 mg/dL (8.4-10.2); Carbon Dioxide 22 mmol/L (22-30); Chloride 109 mmol/L (98-107); Glucose 231 mg/dL (74-99); Non-African American GFR(CKD) >90 (>60 ml/min/1.73 sqM); Potassium 4.1 mmol/L (3.5-5.1); Sodium 140 mmol/L (137-145); Total Bilirubin 0.3 mg/dL (0.2-1.3); Total Protein 6.8 g/dL (6.3-8.2)
[2019-03-05 14:33] LABS: Appearance,Urine Cloudy (Clear); Bilirubin,Urine Negative (Negative); Blood,Urine Negative (Negative); Color,Urine Yellow; Glucose,Urine (UA) Negative (Negative); Hyaline Casts,Urine 1 /lpf (0-2); Ketones,Urine Negative (Negative); Leukocyte Esterase,Urine Negative (Negative); Mucus,Urine Rare /hpf; Nitrite,Urine Negative (Negative); PH, Urine 5.5 (5.0-8.0); Protein,Urine 1+ (Negative); RBC,Urine 1 /hpf (0-5); Specific Gravity,Urine 1.016 (1.001-1.035); Squamous Epithelial Cell,Urine 9 /hpf (0-4); Urobilinogen,Urine <2.0 mg/dL (<2.0)
[2019-03-05 17:12] VITALS: BP 136/76; PULSE 86; RESP 16
== END 2019-03-05 17:10 | disposition home or self-care (01) ==
LOC: EC 10:49
DX: E11.65 Type 2 diabetes mellitus with hyperglycemia (principal); R05 Cough; K21.9 Gastro-esophageal reflux disease without esophagitis; F17.200 Nicotine dependence, unspecified, uncomplicated; Z98.51 Tubal ligation status; Z79.899 Other long term (current) drug therapy
CPT/HCPCS: 36415; 71046; 80053; 81001; 83605; 83690; 84484; 85025; 93005; 96360; 96361; 99285

== ENCOUNTER 2019-03-20 15:53 | Inpatient (IN) | payer MEDICARE, OTHER ==
[2019-03-20] MEDS ORDERED: NITROGLYCERIN OINT 1 INCH/GM PACKET TOPICAL STA (16:43)
--- NOTE | 2019-03-20 16:53 | ED ---
General Adult HPI - General Chief complaint: Chest Pain Stated complaint: Chest pain Time Seen by Provider: 03/20/19 16:00 Source: patient, RN notes reviewed, old records reviewed Mode of arrival: EMS Limitations: no limitations - History of Present Illness Initial comments: This is a 48 year old female has past medical history significant for open heart surgery as a child to close a hole in her heart. Patient has diabetes she denies any history of high blood pressure high cost felt. Patient comes in today because she woke up this morning he had chest pain the center of her chest. Patient states also made her short of breath. Patient states she thinks it's worse with a deep breath. Patient denies any nausea. Patient denies any diaphoretic episodes. Patient denies any abdominal pain patient denies any vomiting or diarrhea. Patient denies any fever chills or cough. Patient denies any headache patient denies lightheadedness or dizziness per patient denies any swelling to legs or calf tenderness. - Related Data Home Medications Medication Instructions Recorded Confirmed Ibuprofen [Motrin] 800 mg PO Q6H PRN 10/14/18 03/05/19 Esomeprazole Magnesium [NexIUM] 20 mg PO DAILY 01/15/19 03/05/19 traMADol HCL [Ultram] 50 mg PO TID PRN 01/24/19 03/05/19 Previous Rx's Medication Instructions Recorded Ferrous Sulfate [Iron (65 MG 325 mg PO BID #60 tab 02/09/19 Elemental)] INSULIN ASPART (NovoLOG) [NovoLOG 6 unit SQ AC-TID #1 vial 02/10/19 (formulary)] Insulin Detemir (Levemir) [Levemir] 20 unit SQ DAILY@0700 30 Days #1 02/10/19 pen Allergies Allergy/AdvReac Type Severity Reaction Status Date / Time No Known Allergies Allergy Verified 03/20/19 16:00 Review of Systems ROS Statement: Those systems with pertinent positive or pertinent negative responses have been documented in the HPI. ROS Other: All systems not noted in ROS Statement are negative. Past Medical History Past Medical History: GERD/Reflux, Hyperlipidemia, Syncope Additional Past Medical History / Comment(s): Pt recently admitted to [facility] on 01/11/19 with UTI/pancreatitis. Other hx: Previous pancreatitis 10/2018, NIDDM type II-pt states she is waiting to get a glucometer, developmental delay, UTI, chronic low back pain, bulging discs, dental abscesses in past, pt states she "blacked out" - last Saturday, Jan 30, 2019. History of Any Multi-Drug Resistant Organisms: None Reported Past Surgical History: Tubal Ligation Additional Past Surgical History / Comment(s): Age 7 had VSD repair Past Anesthesia/Blood Transfusion Reactions: No Reported Reaction Past Psychological History: No Psychological Hx Reported Smoking Status: Light tobacco smoker Past Alcohol Use History: None Reported Past Drug Use History: None Reported - Past Family History Mother Family Medical History: No Reported History Additional Family Medical History / Comment(s): Mother is healthy Father Family Medical History: No Reported History Additional Family Medical History / Comment(s): Father is healthy General Exam - General Exam Comments Initial Comments: GENERAL: Patient is well-developed and well-nourished. Patient is nontoxic and well- hydrated and is in mild distress ENT: Neck is soft and supple. No significant lymphadenopathy is noted. Oropharynx is clear. Moist mucous membranes. Neck has full range of motion without eliciting any pain. There is no thyroid enlargement and no masses were felt. EYES: The sclera were anicteric and conjunctiva were pink and moist. Extraocular movements were intact and pupils were equal round and reactive to light. Eyelids were unremarkable. PULMONARY: Unlabored respirations. Good breath sounds bilaterally. No audible rales rhonchi or wheezing was noted. CARDIOVASCULAR: There is a regular rate and rhythm without any murmurs gallops or rubs. ABDOMEN: Soft and nontender with normal bowel sounds. SKIN: Skin is clear with no lesions or rashes and otherwise unremarkable. NEUROLOGIC: Patient is alert and oriented x3. Cranial nerves II through XII are grossly intact. Motor and sensory are also intact. Normal speech, volume and content. Symmetrical smile. MUSCULOSKELETAL: Normal extremities with adequate strength and full range of motion. No lower extremity swelling or edema. No calf tenderness. LYMPHATICS: No significant lymphadenopathy is noted PSYCHIATRIC: Normal psychiatric evaluation. Limitations: no limitations Course Vital Signs 03/20/19 03/20/19 15:55 16:30 Temperature 99 F Pulse Rate 75 78 Respiratory 16 18 Rate Blood Pressure 149/88 156/90 O2 Sat by Pulse 95 97 Oximetry Medical Decision Making - Medical Decision Making EKG shows normal sinus rhythm at 73 bpm WI interval 118 QRS is 76 QT interval 378 QTC is 416. EKG shows no ST segment elevation or depression or T wave abno rmalities are noted. Chest x-ray shows no acute abnormality. I spoke with Dr. Cerda agreed to admit the patient admitted the patient I consult to cardiology. - Lab Data Result diagrams: 03/20/19 16:07 03/20/19 16:07 Lab Results 03/20/19 03/20/19 03/20/19 Range/Units 16:07 16:07 16:07 WBC 15.3 H (3.8-10.6) k/uL RBC 5.02 (3.80-5.40) m/uL Hgb 12.8 (11.4-16.0) gm/dL Hct 39.6 (34.0-46.0) % MCV 78.8 L (80.0-100.0) fL MCH 25.5 (25.0-35.0) pg MCHC 32.4 (31.0-37.0) g/dL RDW 18.2 H (11.5-15.5) % Plt Count 592 H (150-450) k/uL Neutrophils % 76 % Lymphocytes % 17 % Monocytes % 4 % Eosinophils % 2 % Basophils % 0 % Neutrophils # 11.7 H (1.3-7.7) k/uL Lymphocytes # 2.6 (1.0-4.8) k/uL Monocytes # 0.6 (0-1.0) k/uL Eosinophils # 0.3 (0-0.7) k/uL Basophils # 0.0 (0-0.2) k/uL Anisocytosis Slight Microcytosis Slight PT 9.6 (9.0-12.0) sec INR 0.9 (<1.2) APTT 23.9 (22.0-30.0) sec Sodium 137 (137-145) mmol/L Potassium 4.6 (3.5-5.1) mmol/L Chloride 102 (98-107) mmol/L Carbon Dioxide 19 L (22-30) mmol/L Anion Gap 16 mmol/L BUN 19 H (7-17) mg/dL Creatinine 1.28 H (0.52-1.04) mg/dL Est GFR (CKD-EPI)AfAm 58 (>60 ml/min/1.73 sqM) Est GFR (CKD-EPI)NonAf 51 (>60 ml/min/1.73 sqM) Glucose 173 H (74-99) mg/dL Calcium 9.5 (8.4-10.2) mg/dL Magnesium 1.4 L (1.6-2.3) mg/dL Total Bilirubin 0.4 (0.2-1.3) mg/dL AST 37 H (14-36) U/L ALT 34 (4-34) U/L Alkaline Phosphatase 107 (38-126) U/L Troponin I (0.000-0.034) ng/mL Total Protein 7.7 (6.3-8.2) g/dL Albumin 4.2 (3.5-5.0) g/dL 03/20/19 Range/Units 16:07 WBC (3.8-10.6) k/uL RBC (3.80-5.40) m/uL Hgb (11.4-16.0) gm/dL Hct (34.0-46.0) % MCV (80.0-100.0) fL MCH (25.0-35.0) pg MCHC (31.0-37.0) g/dL RDW (11.5-15.5) % Plt Count (150-450) k/uL Neutrophils % % Lymphocytes % % Monocytes % % Eosinophils % % Basophils % % Neutrophils # (1.3-7.7) k/uL Lymphocytes # (1.0-4.8) k/uL Monocytes # (0-1.0) k/uL Eosinophils # (0-0.7) k/uL Basophils # (0-0.2) k/uL Anisocytosis Microcytosis PT (9.0-12.0) sec INR (<1.2) APTT (22.0-30.0) sec Sodium (137-145) mmol/L Potassium (3.5-5.1) mmol/L Chloride (98-107) mmol/L Carbon Dioxide (22-30) mmol/L Anion Gap mmol/L BUN (7-17) mg/dL Creatinine (0.52-1.04) mg/dL Est GFR (CKD-EPI)AfAm (>60 ml/min/1.73 sqM) Est GFR (CKD-EPI)NonAf (>60 ml/min/1.73 sqM) Glucose (74-99) mg/dL Calcium (8.4-10.2) mg/dL Magnesium (1.6-2.3) mg/dL Total Bilirubin (0.2-1.3) mg/dL AST (14-36) U/L ALT (4-34) U/L Alkaline Phosphatase (38-126) U/L Troponin I <0.012 (0.000-0.034) ng/mL Total Protein (6.3-8.2) g/dL Albumin (3.5-5.0) g/dL Disposition Clinical Impression: Unstable angina pectoris Disposition: ADMITTED IP TO THIS [facility] Time of Disposition: 17:49
[2019-03-20 17:13] LABS: Anisocytosis Slight; Basophils % (A) 0 %; Eosinophils # (A) 0.3 k/uL (0-0.7); Eosinophils % (A) 2 %; HCT 39.6 % (34.0-46.0); HGB 12.8 gm/dL (11.4-16.0); Lymphocytes # (A) 2.6 k/uL (1.0-4.8); Lymphocytes % (A) 17 %; MCH 25.5 pg (25.0-35.0); MCHC 32.4 g/dL (31.0-37.0); MCV 78.8 fL (80.0-100.0); Mean Platelet Volume 7.2; Microcytosis Slight; Monocytes # (A) 0.6 k/uL (0-1.0); Monocytes % (A) 4 %; Neutrophils # (A) 11.7 k/uL (1.3-7.7); Neutrophils % (A) 76 %; Platelet Count 592 k/uL (150-450); RBC 5.02 m/uL (3.80-5.40); RDW 18.2 % (11.5-15.5); WBC 15.3 k/uL (3.8-10.6)
[2019-03-20 17:25] LABS: INR 0.9 (<1.2); Partial Thromboplastin Time 23.9 sec (22.0-30.0); Prothrombin Time 9.6 sec (9.0-12.0)
[2019-03-20 17:28] LABS: Albumin 4.2 g/dL (3.5-5.0); Calcium 9.5 mg/dL (8.4-10.2); Magnesium 1.4 mg/dL (1.6-2.3); Potassium 4.6 mmol/L (3.5-5.1); Total Bilirubin 0.4 mg/dL (0.2-1.3); Total Protein 7.7 g/dL (6.3-8.2)
--- NOTE | 2019-03-20 17:37 | XR ---
EXAMINATION TYPE: XR chest 2V DATE OF EXAM: 03/20/2019 COMPARISON: 03/05/2019 HISTORY: Chest pain TECHNIQUE: 2 views FINDINGS: Heart and mediastinum are normal. Lungs are clear. Diaphragm is normal. Bony thorax appears normal. There are chest leads. IMPRESSION: Normal chest. No change.
[2019-03-20] MEDS ORDERED: NITROGLYCERIN SL TABS 0.4 MG TAB SUBLINGUAL PRN (17:50)
[2019-03-20] MEDS ORDERED: MAGNESIUM SULFATE-D5W PMX 1 GM in DEXTROSE/WATER 1 100ML.BAG IVPB ONE (19:00)
[2019-03-20 21:22] LABS: Glucose,Whole Blood 245 mg/dL (75-99)
[2019-03-20] MEDS: traMADol 50 MG TAB PO PRN (21:39)
[2019-03-20] MEDS: INSULIN ASPART (NovoLOG) 100 UNIT/ML VIAL SQ SCH (21:40)
[2019-03-21] MEDS: NITROGLYCERIN OINT 1 INCH/GM PACKET TOPICAL SCH ×5 (01:22→23:25)
[2019-03-21 04:46] LABS: Magnesium 1.8 mg/dL (1.6-2.3)
[2019-03-21 06:43] LABS: Glucose,Whole Blood 173 mg/dL (75-99)
[2019-03-21] MEDS ORDERED: INSULIN ASPART (NovoLOG) 100 UNIT/ML VIAL SQ SCH (07:30)
[2019-03-21] MEDS: traMADol 50 MG TAB PO PRN ×2 (08:13→18:28)
[2019-03-21] MEDS: INSULIN ASPART (NovoLOG) 100 UNIT/ML VIAL SQ SCH ×4 (10:53→20:30)
[2019-03-21] MEDS: ASPIRIN 325 MG TAB PO SCH (10:56)
[2019-03-21 11:39] LABS: Glucose,Whole Blood 188 mg/dL (75-99)
--- NOTE | 2019-03-21 12:53 | P.CRDCN ---
History of Present Illness Consult date: 03/21/19 Chief complaint: Chest pain History of present illness: This is a very pleasant 48-year-old female patient with a past medical history significant for prior open heart surgery as a child for "hole in the heart", diabetes, hypertension, dyslipidemia, and history of smoking, presented to the emergency room complaining of chest discomfort. She stated that she was in her usual state of health until yesterday when she was at home watching TV and suddenly started experiencing discomfort in the epigastric area, without any radiation to the chest, but it was radiating to the back. No radiation to the arms or neck or shoulders. No associated symptoms of shortness of breath, sweating, dizziness, heart racing, or syncope. The chest discomfort lasted for about 30 minutes to ambulance arrived and brought the patient to the emergency room. She stated that she was having some chest discomfort when she arrived to the emergency room. She stated that she continues to have mild ongoing epigastric discomfort at this point. Her abdomen is soft and nontender. The EKG showed sinus rhythm without any ischemic ST or T-wave abnormalities. The c ardiac enzymes were checked and came in to be unremarkable. The chest x-ray did not show any acute abnormalities. The patient underwent a stress test earlier this year and that was dobutamine stress echocardiogram but that was inconclusive echo she did not achieve the heart rate at that point. Past Medical History Past Medical History: GERD/Reflux, Hyperlipidemia, Syncope Additional Past Medical History / Comment(s): Pt recently admitted to [facility] on 01/11/19 with UTI/pancreatitis. Other hx: Previous pancreatitis 10/2018, NIDDM type II-pt states she is waiting to get a glucometer, developmental delay, UTI, chronic low back pain, bulging discs, dental abscesses in past, pt states she "blacked out" - last Saturday, Jan 30, 2019. History of Any Multi-Drug Resistant Organisms: None Reported Past Surgical History: Tubal Ligation Additional Past Surgical History / Comment(s): Age 7 had VSD repair Past Anesthesia/Blood Transfusion Reactions: No Reported Reaction Past Psychological History: No Psychological Hx Reported Smoking Status: Light tobacco smoker Past Alcohol Use History: None Reported Past Drug Use History: None Reported - Past Family History Mother Family Medical History: No Reported History Additional Family Medical History / Comment(s): Mother is healthy Father Family Medical History: No Reported History Additional Family Medical History / Comment(s): Father is healthy Medications and Allergies Home Medications Medication Instructions Recorded Confirmed Type Ibuprofen [Motrin] 800 mg PO Q6H PRN 10/14/18 03/20/19 History Esomeprazole Magnesium [NexIUM] 20 mg PO DAILY 01/15/19 03/20/19 History Ferrous Sulfate [Iron (65 MG 325 mg PO BID #60 tab 02/09/19 03/20/19 Rx Elemental)] INSULIN ASPART (NovoLOG) [NovoLOG 6 unit SQ AC-TID #1 vial 02/10/19 03/20/19 Rx (formulary)] Insulin Detemir (Levemir) [Levemir] 20 unit SQ DAILY@0700 30 Days #1 02/10/19 03/20/19 Rx pen Allergies Allergy/AdvReac Type Severity Reaction Status Date / Time No Known Allergies Allergy Verified 03/20/19 20:04 Physical Exam Vitals: Vital Signs Temp Pulse Pulse Resp BP BP Pulse Ox 03/21/19 11:29 98.6 F 74 18 134/79 97 03/21/19 07:20 98.2 F 72 18 120/66 96 03/21/19 04:00 98.0 F 60 17 136/70 97 03/20/19 23:45 98.2 F 78 17 146/72 97 03/20/19 19:03 99.3 F 78 18 147/91 98 03/20/19 18:29 97.8 F 03/20/19 18:00 75 16 149/78 94 L 03/20/19 17:30 78 17 149/78 96 03/20/19 16:30 78 18 156/90 97 03/20/19 15:55 99 F 75 16 149/88 95 Intake and Output 03/20/19 03/21/19 03/21/19 22:59 06:59 14:59 Intake Total 0 560 Balance 0 560 Intake: Oral 0 360 Other 200 Other: Voiding Method Toilet # Voids 1 Weight 97.069 kg - Constitutional General appearance: no acute distress - Respiratory Respiratory: bilateral: CTA - Cardiovascular Rhythm: regular Heart sounds: normal: S1, S2 Abnormal Heart Sounds: systolic murmur Results 03/20/19 16:07 03/20/19 16:07 Cardiac Enzymes 03/20/19 03/20/19 03/20/19 Range/Units 16:07 16:07 22:22 AST 37 H (14-36) U/L Troponin I <0.012 <0.012 (0.000-0.034) ng/mL 03/21/19 Range/Units 03:35 AST (14-36) U/L Troponin I <0.012 (0.000-0.034) ng/mL Coagulation 03/20/19 Range/Units 16:07 PT 9.6 (9.0-12.0) sec APTT 23.9 (22.0-30.0) sec Lipids 03/21/19 Range/Units 03:35 Triglycerides 917 H (<150) mg/dL Cholesterol 258 H (<200) mg/dL HDL Cholesterol 25 L (40-60) mg/dL CBC 03/20/19 Range/Units 16:07 WBC 15.3 H (3.8-10.6) k/uL RBC 5.02 (3.80-5.40) m/uL Hgb 12.8 (11.4-16.0) gm/dL Hct 39.6 (34.0-46.0) % Plt Count 592 H (150-450) k/uL Comprehensive Metabolic Panel 03/20/19 Range/Units 16:07 Sodium 137 (137-145) mmol/L Potassium 4.6 (3.5-5.1) mmol/L Chloride 102 (98-107) mmol/L Carbon Dioxide 19 L (22-30) mmol/L BUN 19 H (7-17) mg/dL Creatinine 1.28 H (0.52-1.04) mg/dL Glucose 173 H (74-99) mg/dL Calcium 9.5 (8.4-10.2) mg/dL AST 37 H (14-36) U/L ALT 34 (4-34) U/L Alkaline Phosphatase 107 (38-126) U/L Total Protein 7.7 (6.3-8.2) g/dL Albumin 4.2 (3.5-5.0) g/dL Current Medications Generic Name Dose Route Start Last Admin Trade Name Freq PRN Reason Stop Dose Admin Aspirin 325 mg 03/21/19 09:00 03/21/19 10:56 Aspirin PO 325 mg DAILY YARON Administration Insulin Aspart 0 unit 03/20/19 21:33 03/21/19 12:03 Novolog SQ 2 unit ACHS YARON Administration Protocol Nitroglycerin 0.4 mg 03/20/19 17:50 Nitrostat SUBLINGUAL Q5M PRN Chest Pain Nitroglycerin 1 inch 03/21/19 00:00 03/21/19 12:02 Nitro-Bid Oint TOPICAL Not Given Q6HR YARON Tramadol HCl 50 mg 03/20/19 21:13 03/21/19 08:13 Ultram PO 50 mg QID PRN Administration Pain Intake and Output 03/20/19 03/21/19 03/21/19 22:59 06:59 14:59 Intake Total 0 560 Balance 0 560 Intake: Oral 0 360 Other 200 Other: Voiding Method Toilet # Voids 1 Weight 97.069 kg 03/20/19 16:07 03/20/19 16:07 Assessment and Plan Assessment: Assessment #1 epigastric discomfort/atypical chest discomfort #2 diabetes type 2 #3 history of smoking #4 prior history of open-heart surgery Plan #1 acute coronary event was ruled out #2 the patient continues to have mild ongoing chest discomfort #3 I will obtain an echocardiogram was Doppler #4 monitor the patient for additional 24 hours #5 follow-up with the patient
[2019-03-21 14:17] LABS: Hemoglobin A1C 8.4 % (4.0-6.0)
[2019-03-21 16:39] LABS: Glucose,Whole Blood 190 mg/dL (75-99)
--- NOTE | 2019-03-21 16:57 | HP ---
HISTORY AND PHYSICAL CHIEF COMPLAINT: Chest pain. HISTORY OF PRESENT ILLNESS: This is another admission for this 48-year-old white female. She presented to the emergency room when she developed sharp chest pain at the left sternal border. It persisted. She had no fever and chills, cough, hemoptysis, diaphoresis, shortness of breath, etc. She came to the emergency room and was admitted for observation. Troponins were negative initially. REVIEW OF SYSTEMS: She denies any syncope, orthopnea, PND, murmurs, history of heart disease, etc. Past medical history, review of systems: She has had no fever and chills, cough, hemoptysis, palpitations, syncope, abdominal pain, nausea, vomiting, hematemesis, melena, hematochezia, jaundice, hepatitis, cirrhosis, renal failure, hematuria frequency, urgency, dysuria, incontinence, etc. Past medical history, family history personal and social histories reveal that she is diabetic. ALLERGIES: Not allergic to any medication. MEDICATIONS: She takes Levemir 20 units once a day, NovoLog 6 units before each meal, ferrous sulfate 325 once a day, metformin 500 mg once a day, tramadol 50 mg q.6 p.r.n., Nexium 20 mg once a day. Ibuprofen 800 mg q.i.d. p.r.n. Past medical history, family history, personal and social history: These are otherwise unremarkable and noncontributory except the fact that she does smoke. She does not drink alcohol. PHYSICAL EXAM: Blood pressure 122/80, pulse 78, respirations 16 and temperature 98.2. In general, she appeared to be in no acute distress. Skin color is normal skin is warm, dry. Lymph nodes not enlarged. Head, ears, eyes, nose, mouth, and throat were normal. Neck veins not distended. Carotids could not be assessed. Chest is clear to auscultation, and percussion and the cardiac exam is normal. Normal sinus rhythm and no murmurs or extra sounds. She was tender on the lower sternum particularly on the left and there were no masses. Cardiac exam was completely normal. Abdomen is soft and nontender without visceromegaly or masses. Bowel sounds present. Extremities are normal. Neurologically she is intact. IMPRESSION: She is admitted to the hospital with diagnoses of: 1. Atypical chest pain. 2. Possible costochondritis. 3. Insulin-dependent diabetes mellitus. 4. Nicotine abuse. PLAN: 1. Bed rest. 2. IV fluids. 3. Serial EKGs and enzymes. 4. Follow chest pain to see if it progresses. MMODL / IJN: [id number] /
--- NOTE | 2019-03-21 17:12 | PN ---
PROGRESS NOTE CHIEF COMPLAINT: Chest pain. HISTORY OF PRESENT ILLNESS: This lady is still having the same pain and sounds as those it is in the chest wall. She has had no fever, chills, cough, etc. PHYSICAL EXAMINATION: Chest is clear. Cardiac exam is normal. Abdomen is soft, nontender and she is still a bit tender on the lower left sternum. IMPRESSION: 1. Probable costochondritis. 2. Insulin-dependent diabetes mellitus. PLAN: Await further enzyme studies while increasing her activity. MMODL / IJN: [id number] /
[2019-03-21 19:52] LABS: Glucose,Whole Blood 146 mg/dL (75-99)
[2019-03-22] MEDS: NITROGLYCERIN OINT 1 INCH/GM PACKET TOPICAL SCH ×4 (05:13→23:22)
[2019-03-22 06:39] LABS: Glucose,Whole Blood 159 mg/dL (75-99)
[2019-03-22] MEDS: INSULIN ASPART (NovoLOG) 100 UNIT/ML VIAL SQ SCH ×4 (06:48→20:32)
[2019-03-22 07:15] VITALS: RESP 18
[2019-03-22] MEDS: traMADol 50 MG TAB PO PRN ×2 (07:39→19:43)
[2019-03-22] MEDS: ASPIRIN 325 MG TAB PO SCH (07:40)
[2019-03-22 11:34] LABS: Glucose,Whole Blood 140 mg/dL (75-99)
--- NOTE | 2019-03-22 12:03 | P.PN ---
Subjective Progress Note Date: 03/22/19 Principal diagnosis: CP This is a very pleasant 48-year-old female patient with a past medical history significant for prior open heart surgery as a child for "hole in the heart", diabetes, hypertension, dyslipidemia, and history of smoking, presented to the emergency room complaining of chest discomfort. She stated that she was in her usual state of health until yesterday when she was at home watching TV and suddenly started experiencing discomfort in the epigastric area, without any radiation to the chest, but it was radiating to the back. No radiation to the arms or neck or shoulders. No associated symptoms of shortness of breath, sweating, dizziness, heart racing, or syncope. The chest discomfort lasted for about 30 minutes to ambulance arrived and brought the patient to the emergency room. She stated that she was having some chest discomfort when she arrived to the emergency room. She stated that she continues to have mild ongoing epigastric discomfort at this point. Her abdomen is soft and nontender. The EKG showed sinus rhythm without any ischemic ST or T-wave abnormalities. The cardiac enzymes were checked and came in to be unremarkable. The chest x-ray did not show any acute abnormalities. The patient was seen this morning. She stated that she is chest pain-free. I asked the patient to undergo a stress test to rule out severe coronary artery disease and the patient would like to have the test done here in the hospital tomorrow morning. I will schedule the patient to undergo an exercise stress echocardiogram. Objective - Vital Signs Vital signs: Vital Signs Temp 98.4 F 03/22/19 11:20 Pulse 70 03/22/19 11:20 Resp 18 03/22/19 11:20 BP 145/82 03/22/19 11:20 Pulse Ox 94 L 03/22/19 11:20 Intake & Output 03/21/19 03/22/19 03/22/19 18:59 06:59 18:59 Intake Total 1024 640 Balance 1024 640 Intake: Oral 824 240 Other 200 400 Other: Voiding Method Toilet Toilet Toilet # Voids 1 2 - Constitutional General appearance: Present: no acute distress - Respiratory Respiratory: bilateral: CTA - Cardiovascular Rhythm: regular Heart sounds: normal: S1, S2 Abnormal Heart Sounds: Present: systolic murmur - Labs CBC & Chem 7: 03/20/19 16:07 03/20/19 16:07 Labs: Abnormal Lab Results - Last 24 Hours (Table) 03/21/19 03/21/19 03/21/19 Range/Units 03:35 16:38 19:50 POC Glucose (mg/dL) 190 H 146 H (75-99) mg/dL Hemoglobin A1c 8.4 H (4.0-6.0) % 03/22/19 03/22/19 Range/Units 06:37 11:32 POC Glucose (mg/dL) 159 H 140 H (75-99) mg/dL Hemoglobin A1c (4.0-6.0) % Assessment and Plan Assessment: Assessment #1 epigastric discomfort/atypical chest discomfort #2 diabetes type 2 #3 history of smoking #4 prior history of open-heart surgery Plan #1 acute coronary event was ruled out #2 stress test to be done tomorrow morning
--- NOTE | 2019-03-22 12:53 | ECHOF ---
Referral Reason: MEASUREMENTS -------- HEIGHT: 167.6 cm WEIGHT: 97.1 kg BP: 134/79 RVIDd: 3.8 cm (< 3.3) IVSd: 1.2 cm (0.6 - 1.1) LVIDd: 3.1 cm (3.9 - 5.3) LVPWd: 1.2 cm (0.6 - 1.1) IVSs: 1.4 cm LVIDs: 2.0 cm LVPWs: 1.6 cm LAESV Index (A-L): 13.44 ml/m Ao Diam: 2.7 cm (2.0 - 3.7) AV Cusp: 1.8 cm (1.5 - 2.6) LA Diam: 3.5 cm (2.7 - 3.8) MV EXCURSION: 14.230 mm (> 18.000) MV EF SLOPE: 45 mm/s (70 - 150) EPSS: 0.4 cm MV E Logan: 0.48 m/s MV DecT: 267 ms MV A Logan: 1.03 m/s MV E/A Ratio: 0.47 RAP: 5.00 mmHg RVSP: 30.58 mmHg FINDINGS -------- Sinus rhythm. This was a technically adequate study. The left ventricular size is normal. There is mild concentric left ventricular hypertrophy. Overa ll left ventricular systolic function is normal with, an EF between 55 - 60 %. The diastolic fillin g pattern is normal for the age of the patient 10.29. The right ventricle is mildly enlarged. Normal LA size by volume 22+/-6 ml/m2. The right atrium is mildly enlarged. Interatrial and interventricular septum intact. The aortic valve is trileaflet and appears structurally normal. There is no evidence of aortic regu rgitation. There is no evidence of aortic stenosis. No mitral regurgitation. Mild tricuspid regurgitation present. There is no evidence of pulmonary hypertension. The right v entricular systolic pressure, as measured by Doppler, is 30.58mmHg. There is no pulmonic regurgitation present. The aortic root size is normal. IVC Not well visulized. There is no pericardial effusion. CONCLUSIONS -------- 1. Sinus rhythm. 2. This was a technically adequate study. 3. The left ventricular size is normal. 4. There is mild concentric left ventricular hypertrophy. 5. Overall left ventricular systolic function is normal with, an EF between 55 - 60 %. 6. The diastolic filling pattern is normal for the age of the patient 10.29 7. The right ventricle is mildly enlarged. 8. Normal LA size by volume 22+/-6 ml/m2. 9. The right atrium is mildly enlarged. 10. Interatrial and interventricular septum intact. 11. The aortic valve is trileaflet and appears structurally normal. 12. There is no evidence of aortic regurgitation. 13. There is no evidence of aortic stenosis. 14. No mitral regurgitation. 15. Mild tricuspid regurgitation present. 16. There is no evidence of pulmonary hypertension. 17. The right ventricular systolic pressure, as measured by Doppler, is 30.58mmHg. 18. There is no pulmonic regurgitation present. 19. The aortic root size is normal. 20. IVC Not well visulized. 21. There is no pericardial effusion. MANAGEMENT CONSULTANT: Fadia Duke RDCS
[2019-03-22 16:39] LABS: Glucose,Whole Blood 171 mg/dL (75-99)
--- NOTE | 2019-03-22 18:05 | PN ---
PROGRESS NOTE DATE OF SERVICE: 03/22/2019 CHIEF COMPLAINT: Chest pain. HISTORY OF PRESENT ILLNESS: This lady is doing well. She has been stable and there has been no interval change. She has been seen by Cardiology and she is going for stress test tomorrow. PHYSICAL EXAMINATION: Chest is clear. Cardiac exam is normal. Abdomen is soft, nontender. IMPRESSION: 1. Chest pain. 2. Hypertension. 3. Diabetes. PLAN: Stress study tomorrow. MMODL / IJN: [id number] /
[2019-03-22 20:12] LABS: Glucose,Whole Blood 159 mg/dL (75-99)
[2019-03-23] MEDS: NITROGLYCERIN OINT 1 INCH/GM PACKET TOPICAL SCH (05:06)
[2019-03-23 07:04] LABS: Glucose,Whole Blood 156 mg/dL (75-99)
[2019-03-23] MEDS: INSULIN ASPART (NovoLOG) 100 UNIT/ML VIAL SQ SCH ×2 (07:30→12:09)
[2019-03-23] MEDS: traMADol 50 MG TAB PO PRN ×2 (07:42→14:02)
[2019-03-23] MEDS: ASPIRIN 325 MG TAB PO SCH ×2 (07:42→07:43)
[2019-03-23 07:58] VITALS: TEMP 98.8
[2019-03-23] MEDS ORDERED: DOBUTamine DRIP for NUC MED 500 MG in DEXTROSE/WATER 1 250ML.BAG IV ONE (10:30)
[2019-03-23] MEDS ORDERED: ATROPINE SULFATE 0.1 MG/ML 10ML SYRINGE ONE (11:00)
[2019-03-23] MEDS ORDERED: METOPROLOL TARTRATE 5 MG/5 ML VIAL IVP ONE (11:00)
[2019-03-23] MEDS ORDERED: FENOFIBRATE 160 MG TAB PO SCH (11:15)
--- NOTE | 2019-03-23 11:27 | P.PN ---
Subjective This is a pleasant 48-year-old female past medical history significant for diabetes mellitus, dyslipidemia, chronic pancreatitis and gastroesophageal reflux disease. She also smokes half a pack per day. 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 She did undergo open heart surgery as a child, exact details unavailable. echocardiogram to obtained reveals preserved LV systolic function with ejection fraction 55-60% with normal diastolic filling pattern. Blood pressure 122/76 heart rate 73 afebrile and maintaining oxygen saturation on room air. Triglycerides 917, HDL 25. GENERAL: Well-appearing, well-nourished and in no acute distress. Obese. NECK: Supple without JVD or thyromegaly. LUNGS: Breath sounds clear to auscultation bilaterally. Respiration equal and un labored. No wheezes, rales or rhonchi. HEART: Regular rate and rhythm without murmurs, rubs or gallops. S1 and S2 heard. EXTREMITIES: Normal range of motion, no edema. No clubbing or cyanosis. Perip heral pulses intact. ASSESSMENT Epigastric and chest discomfort, atypical for angina. An acute coronary event has been ruled out Hypomagnesemia, replaced and improved Leukocytosis Acute kidney injury Diabetes mellitus Chronic nicotine dependence Dyslipidemia History of open heart surgery as a child, exact details unavailable Developmental delay Obesity, BMI 41 PLAN Initiate fenofibrate 160 mg daily and atorvastatin 40 gm daily for significantly elevated triglycerides. Consider initiation of BRANDIE inhibitor given her history of diabetes mellitus if renal function has improved. Repeat BMP. Proceed with dobutamine stress echo, if negative she may be discharged from a cardiac perspective. Smoking cessation and lifestyle modifications recommended. Follow up in the office with Dr. Laurent upon discharge. Nurse Practitioner note has been reviewed, I agree with a documented findings and plan of care. Patient was seen and examined. Objective - Vital Signs Vital signs: Vital Signs Temp 98.8 F 03/23/19 07:54 Pulse 64 03/23/19 08:00 Resp 18 03/23/19 08:00 BP 122/76 03/23/19 07:54 Pulse Ox 92 L 03/23/19 07:54 Intake & Output 03/22/19 03/23/19 03/23/19 18:59 06:59 18:59 Intake Total 1530 Balance 1530 Intake: Oral 930 Other 600 Other: Voiding Method Toilet Toilet Toilet # Voids 1 1 - Labs CBC & Chem 7: 03/20/19 16:07 03/20/19 16:07 Labs: Abnormal Lab Results - Last 24 Hours (Table) 03/22/19 03/22/19 03/22/19 Range/Units 11:32 16:35 20:11 POC Glucose (mg/dL) 140 H 171 H 159 H (75-99) mg/dL 03/23/19 Range/Units 07:02 POC Glucose (mg/dL) 156 H (75-99) mg/dL
[2019-03-23] MEDS ORDERED: ATORVASTATIN 40 MG TAB PO SCH (11:30)
[2019-03-23 11:36] LABS: Glucose,Whole Blood 162 mg/dL (75-99)
[2019-03-23 11:44] VITALS: BP 124/79
[2019-03-23 12:17] LABS: African American GFR (CKD) >90 (>60 ml/min/1.73 sqM); Anion Gap 15 mmol/L; Blood Urea Nitrogen 26 mg/dL (7-17); Carbon Dioxide 21 mmol/L (22-30); Chloride 102 mmol/L (98-107); Glucose 166 mg/dL (74-99); Non-African American GFR(CKD) >90 (>60 ml/min/1.73 sqM); Potassium 4.6 mmol/L (3.5-5.1); Sodium 138 mmol/L (137-145)
[2019-03-23 12:21] VITALS: PULSE 64
--- NOTE | 2019-03-23 20:22 | EST ---
EXERCISE STRESS DATE OF SERVICE: 03/23/2019. INDICATION: Chest pain. AGE: 48 SEX: M HT: 5'0" WT: 214 pounds PROTOCOL: Dobutamine Stress Echo STAGE: DURATION OF EXERCISE: HEART RATE REST: 75 BLOOD PRESSURE REST: 157/44 MAXIMUM HEART RATE ACHIEVED: 140 MAXIMUM BLOOD PRESSURE: 195/35 85% MPHR: 148 100% MPHR: 174 METS: CLINICAL INFORMATION: Chest pain. STRESS DATA: Heart rate 75. Blood pressure is 157/44 mmHg. Baseline EKG showed sinus mechanism. Dobutamine infusion at a dose of 10 mcg/kg per minute was initiated and increased to 40 mcg/kg per minute. Max heart rate was 140 which is about 80% of maximum predicted heart rate and maximum blood pressure was 195/35 mmHg. Clinically, the patient did not have any symptoms of chest pain or chest discomfort during the testing or on recovery and the EKG showed about 0.[address]-segment changes. ECHOCARDIOGRAM IMAGES: On echocardiogram images from parasternal long axis view, parasternal short axis view, apical 4 chamber and apical 2 chamber view, were obtained as the baseline images, at low dose dobutamine infusion, at peak heart rate as well as on recovery. The echocardiogram images did not show any evidence of obvious wall motion abnormalities concerning for ischemia. CONCLUSION: 1. Mild EKG changes in response to dobutamine. 2. Normal echocardiogram in response to dobutamine. 3. Please note that the echocardiogram images were technically very difficult and the endocardium was not well seen. MMODL / IJN: [id number] /
--- NOTE | 2019-03-23 23:23 | DS ---
DISCHARGE SUMMARY CHIEF COMPLAINT: Chest pain. HISTORY OF PRESENT ILLNESS AND PHYSICAL EXAM: Details of this lady's history and physical can be found in the initial workup. LABORATORY STUDIES: While she was in the hospital, she had laboratory studies, details of which can be found in the laboratory section of her chart. COURSE IN HOSPITAL: After admission, she was placed on bedrest, started on intravenous fluids and serial EKGs and enzymes. She was seen by Cardiology and taken for stress test. This was normal. It was felt she could be discharged. She will go home on her usual medication, activity and diet and be seen in the office the next day. We will then intensify her diabetes management to bring her blood sugars under better control. FINAL DIAGNOSES: 1. Chest pain, noncardiac. 2. Hypertension. 3. Uncontrolled insulin-dependent diabetes mellitus. 4. Obesity. OPERATIONS: None. CONSULTATIONS: Cardiology. She is improved. MMJOHANL / EVELINN: [id number] /
[2019-03-24] MEDS ORDERED: ASPIRIN 81 MG PO SCH (09:00)
== END 2019-03-23 15:32 | disposition home or self-care (01) | DRG 313 ==
LOC: EC 15:53 → 1SOBS 17:50 → OBSVTOIN 03-22 13:53
PROVIDERS: ADMIT Family Medicine; ATTEND Family Medicine
DX: R07.89 Other chest pain (principal); Z68.41 Body mass index [BMI] 40.0-44.9, adult; N17.9 Acute kidney failure, unspecified; K21.9 Gastro-esophageal reflux disease without esophagitis; E78.5 Hyperlipidemia, unspecified; E66.9 Obesity, unspecified; I10 Essential (primary) hypertension; E83.42 Hypomagnesemia; R62.50 Unspecified lack of expected normal physiological development in childhood; E11.9 Type 2 diabetes mellitus without complications; F17.210 Nicotine dependence, cigarettes, uncomplicated; Z79.4 Long term (current) use of insulin; Z87.440 Personal history of urinary (tract) infections; Z98.51 Tubal ligation status; Z98.890 Other specified postprocedural states
CPT/HCPCS: 36415; 71046; 80048; 80053; 80061; 83036; 83735; 84484; 85025; 85610; 85730; 93005; 93306; 93351; 99285

== ENCOUNTER 2019-03-24 10:03 | Observation (INO) | payer MEDICARE, OTHER ==
[2019-03-24] MEDS ORDERED: NITROGLYCERIN OINT 1 INCH/GM PACKET TOPICAL STA (10:18)
[2019-03-24] MEDS ORDERED: ASPIRIN 81 MG PO STA (10:18)
[2019-03-24] MEDS ORDERED: NITROGLYCERIN SL TABS 0.4 MG TAB SUBLINGUAL STA (10:18)
--- NOTE | 2019-03-24 10:24 | ED ---
General Adult HPI - General Chief complaint: Chest Pain Stated complaint: chest pain Time Seen by Provider: 03/24/19 10:03 Source: patient, EMS, RN notes reviewed, old records reviewed Mode of arrival: EMS Limitations: no limitations - History of Present Illness Initial comments: This is a 48-year-old female presents to the emergency department complaining of chest pain. Patient states she was just discharged from the hospital for chest pain and it is stress test. Patient states she woke up this morning started having chest pain again in the center chest per patient states it doesn't radiate anywhere but it does make her short of breath per patient denies any diaphoretic episodes. Patient denies any nausea. Patient denies any abdominal pain patient denies nausea vomiting diarrhea. Patient denies headache patient denies numbness weakness. Patient denies lightheadedness or dizziness. Patient denies any swelling to the legs or calf tenderness. - Related Data Home Medications Medication Instructions Recorded Confirmed Esomeprazole Magnesium [NexIUM] 20 mg PO DAILY 01/15/19 03/24/19 Previous Rx's Medication Instructions Recorded Ferrous Sulfate [Iron (65 MG 325 mg PO BID #60 tab 02/09/19 Elemental)] INSULIN ASPART (NovoLOG) [NovoLOG 6 unit SQ AC-TID #1 vial 02/10/19 (formulary)] Insulin Detemir (Levemir) [Levemir] 20 unit SQ DAILY@0700 30 Days #1 02/10/19 pen Atorvastatin [Lipitor] 80 mg PO DAILY #30 tab 03/23/19 Fenofibrate [Lofibra] 160 mg PO DAILY #30 tab 03/23/19 Ibuprofen [Motrin] 800 mg PO Q6H PRN #120 tab 03/23/19 Allergies Allergy/AdvReac Type Severity Reaction Status Date / Time No Known Allergies Allergy Verified 03/24/19 10:09 Review of Systems ROS Statement: Those systems with pertinent positive or pertinent negative responses have been documented in the HPI. ROS Other: All systems not noted in ROS Statement are negative. Past Medical History Past Medical History: Diabetes Mellitus, GERD/Reflux, Hyperlipidemia, Syncope Additional Past Medical History / Comment(s): Pt recently admitted to [facility] on 01/11/19 with UTI/pancreatitis. Other hx: Previous pancreatitis 10/2018, NIDDM type II-pt states she is waiting to get a glucometer, developmental delay, UTI, chronic low back pain, bulging discs, dental abscesses in past, pt states she "blacked out" - last Saturday, Jan 30, 2019. History of Any Multi-Drug Resistant Organisms: None Reported Past Surgical History: Tubal Ligation Additional Past Surgical History / Comment(s): Age 7 had VSD repair Past Anesthesia/Blood Transfusion Reactions: No Reported Reaction Past Psychological History: No Psychological Hx Reported Smoking Status: Current every day smoker Past Alcohol Use History: None Reported Past Drug Use History: None Reported - Past Family History Mother Family Medical History: No Reported History Additional Family Medical History / Comment(s): Mother is healthy Father Family Medical History: No Reported History Additional Family Medical History / Comment(s): Father is healthy General Exam - General Exam Comments Initial Comments: GENERAL: Patient is well-developed and well-nourished. Patient is nontoxic and well- hydrated and is in mild distress. ENT: Neck is soft and supple. No significant lymphadenopathy is noted. Oropharynx is clear. Moist mucous membranes. Neck has full range of motion without eliciting any pain. EYES: The sclera were anicteric and conjunctiva were pink and moist. Extraocular movements were intact and pupils were equal round and reactive to light. Eyelids were unremarkable. PULMONARY: Unlabored respirations. Good breath sounds bilaterally. No audible rales rhonchi or wheezing was noted. CARDIOVASCULAR: There is a regular rate and rhythm without any murmurs gallops or rubs. ABDOMEN: Soft and nontender with normal bowel sounds. SKIN: Skin is clear with no lesions or rashes and otherwise unremarkable. NEUROLOGIC: Patient is alert and oriented x3. Cranial nerves II through XII are grossly intact. Motor and sensory are also intact. Normal speech, volume and content. Symmetrical smile. MUSCULOSKELETAL: Normal extremities with adequate strength and full range of motion. LYMPHATICS: No significant lymphadenopathy is noted PSYCHIATRIC: Normal psychiatric evaluation. Limitations: no limitations Course Vital Signs 03/24/19 03/24/19 03/24/19 10:04 10:18 10:28 Temperature 98.9 F Pulse Rate 81 Pulse Rate [ 80 Passenger Rate Clerk ] Respiratory 18 16 Rate Blood Pressure 181/106 O2 Sat by Pulse 96 Oximetry 03/24/19 11:00 Temperature Pulse Rate 80 Pulse Rate [ Passenger Rate Clerk ] Respiratory 18 Rate Blood Pressure 153/87 O2 Sat by Pulse 98 Oximetry Medical Decision Making - Medical Decision Making EKG shows normal sinus rhythm at 76 bpm MT interval is on a 46 dresses 80 QT interval 522 QTC is 587. Patient's EKG shows a prolonged QT as well as some flattening of the T waves compared to the previous EKG. Chest x-ray shows no acute abnormality. I spoke with Dr. Torres and he agreed to admit the patient admitted the patient I wrote admitting orders. - Lab Data Result diagrams: 03/24/19 10:15 03/24/19 10:15 Lab Results 03/24/19 03/24/19 03/24/19 Range/Units 10:15 10:15 10:15 WBC 10.5 (3.8-10.6) k/uL RBC 5.06 (3.80-5.40) m/uL Hgb 13.1 (11.4-16.0) gm/dL Hct 40.3 (34.0-46.0) % MCV 79.7 L (80.0-100.0) fL MCH 25.9 (25.0-35.0) pg MCHC 32.5 (31.0-37.0) g/dL RDW 17.5 H (11.5-15.5) % Plt Count 607 H (150-450) k/uL Neutrophils % 74 % Lymphocytes % 18 % Monocytes % 4 % Eosinophils % 3 % Basophils % 1 % Neutrophils # 7.7 (1.3-7.7) k/uL Lymphocytes # 1.9 (1.0-4.8) k/uL Monocytes # 0.4 (0-1.0) k/uL Eosinophils # 0.3 (0-0.7) k/uL Basophils # 0.1 (0-0.2) k/uL Hypochromasia Slight Anisocytosis Slight Microcytosis Slight PT 10.0 (9.0-12.0) sec INR 0.9 (<1.2) APTT 24.4 (22.0-30.0) sec Sodium 137 (137-145) mmol/L Potassium 4.2 (3.5-5.1) mmol/L Chloride 100 (98-107) mmol/L Carbon Dioxide 22 (22-30) mmol/L Anion Gap 15 mmol/L BUN 28 H (7-17) mg/dL Creatinine 0.79 (0.52-1.04) mg/dL Est GFR (CKD-EPI)AfAm >90 (>60 ml/min/1.73 sqM) Est GFR (CKD-EPI)NonAf >90 (>60 ml/min/1.73 sqM) Glucose 273 H (74-99) mg/dL Calcium 9.8 (8.4-10.2) mg/dL Magnesium 1.6 (1.6-2.3) mg/dL Total Bilirubin 0.7 (0.2-1.3) mg/dL AST 92 H (14-36) U/L ALT 65 H (4-34) U/L Alkaline Phosphatase 133 H (38-126) U/L Troponin I (0.000-0.034) ng/mL Total Protein 7.8 (6.3-8.2) g/dL Albumin 4.5 (3.5-5.0) g/dL 03/24/19 Range/Units 10:15 WBC (3.8-10.6) k/uL RBC (3.80-5.40) m/uL Hgb (11.4-16.0) gm/dL Hct (34.0-46.0) % MCV (80.0-100.0) fL MCH (25.0-35.0) pg MCHC (31.0-37.0) g/dL RDW (11.5-15.5) % Plt Count (150-450) k/uL Neutrophils % % Lymphocytes % % Monocytes % % Eosinophils % % Basophils % % Neutrophils # (1.3-7.7) k/uL Lymphocytes # (1.0-4.8) k/uL Monocytes # (0-1.0) k/uL Eosinophils # (0-0.7) k/uL Basophils # (0-0.2) k/uL Hypochromasia Anisocytosis Microcytosis PT (9.0-12.0) sec INR (<1.2) APTT (22.0-30.0) sec Sodium (137-145) mmol/L Potassium (3.5-5.1) mmol/L Chloride (98-107) mmol/L Carbon Dioxide (22-30) mmol/L Anion Gap mmol/L BUN (7-17) mg/dL Creatinine (0.52-1.04) mg/dL Est GFR (CKD-EPI)AfAm (>60 ml/min/1.73 sqM) Est GFR (CKD-EPI)NonAf (>60 ml/min/1.73 sqM) Glucose (74-99) mg/dL Calcium (8.4-10.2) mg/dL Magnesium (1.6-2.3) mg/dL Total Bilirubin (0.2-1.3) mg/dL AST (14-36) U/L ALT (4-34) U/L Alkaline Phosphatase (38-126) U/L Troponin I <0.012 (0.000-0.034) ng/mL Total Protein (6.3-8.2) g/dL Albumin (3.5-5.0) g/dL Disposition Clinical Impression: Chest pain, Prolonged QT interval Disposition: ADMITTED IP TO THIS [facility] Referrals: Guillermo Cerda MD [Primary Care Provider] - 1-2 days Time of Disposition: 12:00
[2019-03-24 10:36] LABS: Anisocytosis Slight; Basophils # (A) 0.1 k/uL (0-0.2); Basophils % (A) 1 %; Eosinophils # (A) 0.3 k/uL (0-0.7); Eosinophils % (A) 3 %; HCT 40.3 % (34.0-46.0); HGB 13.1 gm/dL (11.4-16.0); Hypochromasia Slight; Lymphocytes # (A) 1.9 k/uL (1.0-4.8); Lymphocytes % (A) 18 %; MCH 25.9 pg (25.0-35.0); MCHC 32.5 g/dL (31.0-37.0); MCV 79.7 fL (80.0-100.0); Microcytosis Slight; Monocytes # (A) 0.4 k/uL (0-1.0); Monocytes % (A) 4 %; Neutrophils # (A) 7.7 k/uL (1.3-7.7); Neutrophils % (A) 74 %; Platelet Count 607 k/uL (150-450); RBC 5.06 m/uL (3.80-5.40); RDW 17.5 % (11.5-15.5); WBC 10.5 k/uL (3.8-10.6)
[2019-03-24 10:46] LABS: ALT 65 U/L (4-34); AST 92 U/L (14-36); African American GFR (CKD) >90 (>60 ml/min/1.73 sqM); Albumin 4.5 g/dL (3.5-5.0); Alkaline Phosphatase 133 U/L (38-126); Anion Gap 15 mmol/L; Blood Urea Nitrogen 28 mg/dL (7-17); Calcium 9.8 mg/dL (8.4-10.2); Carbon Dioxide 22 mmol/L (22-30); Chloride 100 mmol/L (98-107); Glucose 273 mg/dL (74-99); Magnesium 1.6 mg/dL (1.6-2.3); Non-African American GFR(CKD) >90 (>60 ml/min/1.73 sqM); Potassium 4.2 mmol/L (3.5-5.1); Sodium 137 mmol/L (137-145); Total Bilirubin 0.7 mg/dL (0.2-1.3); Total Protein 7.8 g/dL (6.3-8.2)
[2019-03-24 10:47] LABS: INR 0.9 (<1.2); Partial Thromboplastin Time 24.4 sec (22.0-30.0)
--- NOTE | 2019-03-24 10:50 | XR ---
EXAMINATION TYPE: XR chest 2V DATE OF EXAM: 03/24/2019 COMPARISON: CTA chest February 04, 2019. Chest x-ray 4 days ago and older studies. HISTORY: Chest pain. TECHNIQUE: Frontal and lateral views of the chest are obtained. FINDINGS: Overlying sternal wires are again seen. There is no new suspicious focal air space opacity, pleural effusion, or pneumothorax seen. The cardiac silhouette size stable mildly enlarged. Overlyi ng EKG leads redemonstrated. The osseous structures are intact. IMPRESSION: Mild cardiomegaly without acute pulmonary process. No significant change from most recen t chest x-ray.
[2019-03-24] MEDS ORDERED: NITROGLYCERIN SL TABS 0.4 MG TAB SUBLINGUAL PRN (12:00)
--- NOTE | 2019-03-24 13:37 | US ---
EXAMINATION TYPE: US gallbladder DATE OF EXAM: 03/24/2019 COMPARISON: 02/04/2019 CTA chest. CLINICAL HISTORY: recurrent atypical cp, elev liver enzymes. EXAM MEASUREMENTS: Liver Length: 15.9 cm Gallbladder Wall: 0.3 cm CBD: 0.6 cm Right Kidney: 12.4 x 5.1 x 7.1 cm Pancreas: not visualized due to midline bowel gas Liver: There is increased echogenicity of the hepatic parenchyma with diminished visualization of th e portal triads most commonly relating to hepatic steatosis and limiting evaluation for underlying he patic masses. Gallbladder: No stones seen Evidence for sonographic Jurado's sign: Yes CBD: wnl Right Kidney: No hydronephrosis or masses seen IMPRESSION: 1. Sonographic findings most commonly related to hepatic steatosis. Correlate with liver function brett t results. 2. Sonographic Jurado sign is positive however there is no sonographic evidence of cholelithiasis nor acute cholecystitis. If there is further concern HIDA scan with CCK could evaluate for biliary dyski nesia.
--- NOTE | 2019-03-24 14:27 | P.CRDCN ---
History of Present Illness History of present illness: HISTORY OF PRESENTING ILLNESS This is a pleasant 48-year-old female past medical history significant for diabetes mellitus, dyslipidemia, chronic pancreatitis, chronic nicotine dep endence and developmental delay. She also had open-heart surgery at the age of 7 for a VSD repair. 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 We have been asked to see in consultation for chest pain. She was seen and evaluated here over the weekend for complaints of atypical chest discomfort. She underwent a dobutamine stress echocardiogram yesterday which revealed minor EKG changes in response to dobutamine with normal echocardiogram in response to dobutamine however the echocardiographic images were technically difficult. She states she was discharged home yesterday she went home feeling normal however about an hour after arriving home she became extremely nauseated and threw up. She laid down and went to sleep for the night. She woke up in the morning feeling ongoing nausea and a tight making pain in the midsternal region. The pain radiates to the epigastric area and the right upper quadrant of her abdomen. She is having ongoing discomfort at the time of my exam. She denies associated shortness of breath, dizziness or palpitations. She denies radiation to the arm, back, neck or jaw. Symptoms are similar to how she felt over the weekend. DIAGNOSTICS EKG reveals sinus mechanism heart rate is 76, [address] depression noted inferiorly laterally. Chest xray mild cardiomegaly negative for an acute cardiopulmonary process.. Laboratory reviewed, WBC 10.5, hemoglobin 13.1, platelets 607, sodium 137, potassium 4.2, creatinine 0.79, magnesium 1.6, AST 92, ALT 65, alkaline phosphate 133, cardiac enzymes negative 1. Current cardiac medications include atorvastatin 80 mg daily and fenofibrate 160 mg daily. Echocardiogram obtained March 21 reveals preserved LV systolic function with ejection fraction 55-60%, normal diastolic filling pattern, septum intact and mild TR. REVIEW OF SYSTEMS At the time of my exam: CONSTITUTIONAL: Denies fever or chills. CARDIOVASCULAR: Complains of chest pain. Denies shortness of breath, orthopnea, PND or palpitations. RESPIRATORY: Denies cough. GASTROINTESTINAL: Complains of abdominal pain and nausea. Denies diarrhea, constipation or vomiting. MUSCULOSKELETAL: Denies myalgias. NEUROLOGIC: Denies numbness, tingling or weakness. ENDOCRINE: Denies fatigue, weight change, polydipsia or polyurina. GENITOURINARY: Denies burning, hematuria or urgency with micturation. HEMATOLOGIC: Denies history of anemia or bleeding. PHYSICAL EXAMINATION Blood pressure 134/83 heart rate 84 afebrile and maintaining oxygen saturation on room air. CONSTITUTIONAL: No apparent distress. HEENT: Head is normocephalic. Pupils are equal, round. Sclerae anicteric. Mucous membranes of the mouth are moist. No JVD. No carotid bruit. CHEST EXAMINATION: Lungs are clear to auscultation. No chest wall tenderness is noted on palpation or with deep breathing. HEART EXAMINATION: Regular rate and rhythm. S1, S2 heard. No murmurs, gallops or rub. ABDOMEN: Soft, nontender. Positive bowel sounds. EXTREMITIES: 2+ peripheral pulses, no lower extremity edema and no calf tenderness. NEUROLOGIC EXAMINATION: Patient is awake, alert and oriented x3. ASSESSMENT Chest pain Abdominal pain with nausea and vomiting Diabetes mellitus Dyslipidemia Chronic nicotine dependence Developmental delay History of VSD repair at the age of 7, exact details unavailable Morbid obesity, BMI 41 PLAN Obtain stat ultrasound of the gallbladder given the abdominal pain, nausea, vomiting and elevated liver enzymes. Repeat a limited echo to assess for wall motion abnormalities. Repeat EKG. Continue to trend cardiac enzymes to rule out an acute event. Further recommendations to follow based on clinical course. Thank you kindly for this consultation. Nurse Practitioner note has been reviewed, I agree with a documented findings and plan of care. Patient was seen and examined. Past Medical History Past Medical History: Diabetes Mellitus, GERD/Reflux, Hyperlipidemia, Syncope Additional Past Medical History / Comment(s): Pt recently admitted to [facility] on 01/11/19 with UTI/pancreatitis. Other hx: Previous pancreatitis 10/2018, NIDDM type II-pt states she is waiting to get a glucometer, developmental delay, UTI, chronic low back pain, bulging discs, dental abscesses in past, pt states she "blacked out" - last Saturday, Jan 30, 2019. History of Any Multi-Drug Resistant Organisms: None Reported Past Surgical History: Tubal Ligation Additional Past Surgical History / Comment(s): Age 7 had VSD repair Past Anesthesia/Blood Transfusion Reactions: No Reported Reaction Past Psychological History: No Psychological Hx Reported Smoking Status: Current every day smoker Past Alcohol Use History: None Reported Past Drug Use History: None Reported - Past Family History Mother Family Medical History: No Reported History Additional Family Medical History / Comment(s): Mother is healthy Father Family Medical History: No Reported History Additional Family Medical History / Comment(s): Father is healthy Medications and Allergies Home Medications Medication Instructions Recorded Confirmed Type Esomeprazole Magnesium [NexIUM] 20 mg PO DAILY 01/15/19 03/24/19 History Ferrous Sulfate [Iron (65 MG 325 mg PO BID #60 tab 02/09/19 03/24/19 Rx Elemental)] INSULIN ASPART (NovoLOG) [NovoLOG 6 unit SQ AC-TID #1 vial 02/10/19 03/24/19 Rx (formulary)] Insulin Detemir (Levemir) [Levemir] 20 unit SQ DAILY@0700 30 Days #1 02/10/19 03/24/19 Rx pen Atorvastatin [Lipitor] 80 mg PO DAILY #30 tab 03/23/19 03/24/19 Rx Fenofibrate [Lofibra] 160 mg PO DAILY #30 tab 03/23/19 03/24/19 Rx Ibuprofen [Motrin] 800 mg PO Q6H PRN #120 tab 03/23/19 03/24/19 Rx Allergies Allergy/AdvReac Type Severity Reaction Status Date / Time No Known Allergies Allergy Verified 03/24/19 10:09 Physical Exam Vitals: Vital Signs Temp Pulse Pulse Pulse Resp BP BP 03/24/19 13:07 98.4 F 84 18 134/83 03/24/19 12:39 98.6 F 86 18 137/86 03/24/19 11:00 80 18 153/87 03/24/19 10:28 16 03/24/19 10:18 80 03/24/19 10:04 98.9 F 81 18 181/106 Pulse Ox 03/24/19 13:07 94 L 03/24/19 12:39 96 03/24/19 11:00 98 03/24/19 10:28 03/24/19 10:18 03/24/19 10:04 96 Intake and Output 03/23/19 03/24/19 03/24/19 22:59 06:59 14:59 Other: Weight 97.069 kg Results 03/24/19 10:15 03/24/19 10:15 Cardiac Enzymes 03/24/19 03/24/19 Range/Units 10:15 10:15 AST 92 H (14-36) U/L Troponin I <0.012 (0.000-0.034) ng/mL Coagulation 03/24/19 Range/Units 10:15 PT 10.0 (9.0-12.0) sec APTT 24.4 (22.0-30.0) sec CBC 03/24/19 Range/Units 10:15 WBC 10.5 (3.8-10.6) k/uL RBC 5.06 (3.80-5.40) m/uL Hgb 13.1 (11.4-16.0) gm/dL Hct 40.3 (34.0-46.0) % Plt Count 607 H (150-450) k/uL Comprehensive Metabolic Panel 03/24/19 Range/Units 10:15 Sodium 137 (137-145) mmol/L Potassium 4.2 (3.5-5.1) mmol/L Chloride 100 (98-107) mmol/L Carbon Dioxide 22 (22-30) mmol/L BUN 28 H (7-17) mg/dL Creatinine 0.79 (0.52-1.04) mg/dL Glucose 273 H (74-99) mg/dL Calcium 9.8 (8.4-10.2) mg/dL AST 92 H (14-36) U/L ALT 65 H (4-34) U/L Alkaline Phosphatase 133 H (38-126) U/L Total Protein 7.8 (6.3-8.2) g/dL Albumin 4.5 (3.5-5.0) g/dL Current Medications Generic Name Dose Route Start Last Admin Trade Name Freq PRN Reason Stop Dose Admin Aspirin 81 mg 03/25/19 09:00 Aspirin PO DAILY YARON Nitroglycerin 0.4 mg 03/24/19 12:00 Nitrostat SUBLINGUAL Q5M PRN Chest Pain Nitroglycerin 1 inch 03/24/19 18:00 Nitro-Bid Oint TOPICAL Q6HR YARON Intake and Output 03/23/19 03/24/19 03/24/19 22:59 06:59 14:59 Other: Weight 97.069 kg Patient Weight 03/25/19 06:59 Weight 97.069 kg 03/24/19 10:15 03/24/19 10:15
[2019-03-24 17:13] LABS: Glucose,Whole Blood 148 mg/dL (75-99)
--- NOTE | 2019-03-24 17:43 | NM ---
EXAMINATION TYPE: NM hepatobiliary w CCK DATE OF EXAM: 03/24/2019 COMPARISON: Ultrasound gallbladder 03/24/2019 HISTORY: Recurrent atypical chest pain with elevated liver enzymes; nausea, vomiting TECHNIQUE: After the intravenous administration of 4.63 mCi Tc 99m Mebrofenin hepatobiliary scintigra phy is performed. Immediate images post injection. FINDINGS: There is satisfactory initial accumulation of tracer by the liver. The gallbladder is visualized wit hin 6 minutes. The small bowel activity is noted within 12 minutes. At one hour CCK was administere d, patient was injected with 2.0 mcg of Kinevac, and then the patient reportedly experienced sweating and nausea. Gamma camera imaging acquisition was stopped at this point due to patient discomfort, so gallbladder ejection could not be evaluated. The findings are consistent with non-obstruction of the common hepatic duct, the cystic duct, and the common bile duct. IMPRESSION: Exam within normal limits.
[2019-03-24] MEDS ORDERED: HEPARIN SODIUM,PORCINE 5,000 UNIT/ML 1 ML VIAL IV ONE (17:54)
[2019-03-24] MEDS ORDERED: HEPARIN SODIUM,PORCINE 5,000 UNIT/ML 1 ML VIAL IV PRN (17:54)
[2019-03-24] MEDS ORDERED: HEPARIN SOD,PORK IN 0.45% NACL 25,000 UNIT in 0.45% NACL 1 250ML.BAG IV SCH (18:00)
--- NOTE | 2019-03-24 18:22 | HP ---
HISTORY AND PHYSICAL CHIEF COMPLAINT: Chest pain. HISTORY OF PRESENT ILLNESS: This is another admission for this 48-year-old white female. She was in the hospital in the last several days with chest pain and underwent a stress study which was normal. She was seen and followed by Cardiology. She was discharged and now she is back in with chest pain. This time, the emergency room physician relates that her EKG has changed and she has a prolonged QT interval. This has not been seen in the past. She is on tramadol, insulin, iron, metformin and ibuprofen. She has had no diaphoresis, cough, hemoptysis, pleuritic pain, etc. The rest of her history is unchanged. PHYSICAL EXAMINATION: Blood pressure 122/80, pulse 78 and regular, respiratory rate 16. She is afebrile. In general she appeared to be overweight and in no acute distress. Skin color was normal. Skin was warm and dry. Lymph nodes were not enlarged. Head, ears, eyes, nose, mouth and throat were normal. Neck veins were not distended. Thyroid was not not enlarged. Chest was clear. The cardiac exam was normal. No murmurs or extra sounds. Abdomen was soft, nontender and protuberant. Extremities were normal. Neurologically she was intact. ADMITTING DIAGNOSES: She is admitted to the hospital with the diagnoses: 1. Recurrent episodes of chest pain. 2. Prolonged QT interval. 3. Insulin-dependent diabetes mellitus. 4. Exogenous obesity. PLAN: 1. Bed rest. 2. IV fluids. 3. Repeat EKGs and enzymes. 4. Cardiology consult. MMJOHANL / EVELINN: [id number] /
[2019-03-24] MEDS: NITROGLYCERIN OINT 1 INCH/GM PACKET TOPICAL SCH ×2 (18:48→23:18)
[2019-03-24] MEDS: ACETAMINOPHEN TAB 325 MG TAB PO PRN (18:48)
[2019-03-24] MEDS: FERROUS SULFATE 325 MG TAB PO SCH (20:01)
[2019-03-24 20:20] LABS: Glucose,Whole Blood 201 mg/dL (75-99)
[2019-03-24] MEDS ORDERED: traZODone HCL 50 MG TAB PO PRN (23:36)
[2019-03-25] MEDS: NITROGLYCERIN OINT 1 INCH/GM PACKET TOPICAL SCH ×2 (04:57→07:52)
[2019-03-25] MEDS: FENOFIBRATE 160 MG TAB PO SCH (06:47)
[2019-03-25] MEDS: FERROUS SULFATE 325 MG TAB PO SCH ×2 (06:47→19:49)
[2019-03-25] MEDS: ATORVASTATIN 80 MG TAB PO SCH (06:47)
[2019-03-25] MEDS: PANTOPRAZOLE 40 MG TABLET PO SCH (06:48)
[2019-03-25 07:08] LABS: Glucose,Whole Blood 157 mg/dL (75-99)
[2019-03-25 07:39] LABS: ALT 64 U/L (4-34); AST 73 U/L (14-36); African American GFR (CKD) >90 (>60 ml/min/1.73 sqM); Alkaline Phosphatase 115 U/L (38-126); Anion Gap 13 mmol/L; Blood Urea Nitrogen 25 mg/dL (7-17); Calcium 9.5 mg/dL (8.4-10.2); Carbon Dioxide 24 mmol/L (22-30); Chloride 102 mmol/L (98-107); Glucose 168 mg/dL (74-99); Non-African American GFR(CKD) >90 (>60 ml/min/1.73 sqM); Potassium 4.3 mmol/L (3.5-5.1); Sodium 139 mmol/L (137-145); Total Bilirubin 0.4 mg/dL (0.2-1.3); Total Protein 7.3 g/dL (6.3-8.2)
[2019-03-25] MEDS: INSULIN DETEMIR (LEVEMIR) 100 UNIT/ML SYR SQ SCH (07:51)
[2019-03-25] MEDS: INSULIN ASPART (NovoLOG) 100 UNIT/ML VIAL SQ SCH ×3 (07:51→17:53)
[2019-03-25] MEDS: ACETAMINOPHEN TAB 325 MG TAB PO PRN ×3 (08:03→21:35)
[2019-03-25] MEDS ORDERED: SODIUM CHLORIDE 0.9% 1,000 ML in EMPTY BAG 1 BAG IV ONE (08:17)
[2019-03-25] MEDS ORDERED: ASPIRIN 325 MG TAB PO STA (08:17)
[2019-03-25] MEDS ORDERED: ASPIRIN 81 MG PO STA (08:30)
[2019-03-25] MEDS ORDERED: ASPIRIN 325 MG TAB PO SCH (09:00)
[2019-03-25] MEDS ORDERED: ASPIRIN 81 MG PO SCH (09:00)
[2019-03-25 11:51] LABS: Glucose,Whole Blood 155 mg/dL (75-99)
--- NOTE | 2019-03-25 12:04 | ECHOF ---
Referral Reason:lv function MEASUREMENTS -------- HEIGHT: 152.4 cm WEIGHT: 97.1 kg BP: IVSd: 1.2 cm (0.6 - 1.1) LVIDd: 4.0 cm (3.9 - 5.3) LVPWd: 1.1 cm (0.6 - 1.1) IVSs: 1.6 cm LVIDs: 2.5 cm LVPWs: 1.9 cm FINDINGS -------- Sinus rhythm. Limited Study Overall left ventricular systolic function is normal with, an EF between 55 - 60 %. Atypical septal wall motion 5.0mg of Lumason was utilized for enhancement of images CONCLUSIONS -------- 1. Sinus rhythm. 2. Limited Study 3. Overall left ventricular systolic function is normal with, an EF between 55 - 60 %. 4. Atypical septal wall motion 5. 5.0mg of Lumason was utilized for enhancement of images INFORMATION SYSTEMS MANAGER: Fadia Duke IRAJ
[2019-03-25] MEDS ORDERED: MIDAZOLAM 2 MG/2 ML VIAL IVP ONE (13:13)
[2019-03-25] MEDS ORDERED: LIDOCAINE 1% INJ 10MG/ML (20 ML MDV) SQ ONE (13:13)
[2019-03-25] MEDS ORDERED: HYDROmorphone 1 MG/ML 1 ML SYRINGE ONE (13:14)
[2019-03-25] MEDS ORDERED: VERAPAMIL SYRINGE (5 MG/10 ML) INTRAARTER ONE ×2 (13:15→13:22)
[2019-03-25] MEDS ORDERED: HYDROmorphone 1 MG/ML 1 ML SYRINGE IVP ONE (13:16)
[2019-03-25] MEDS ORDERED: HEPARIN SODIUM 1,000 UN/ML (10ML VL) IV ONE (13:17)
[2019-03-25] MEDS ORDERED: IV FLUID CONTINUATION 1,000 ML IV ONE (13:20)
[2019-03-25] MEDS ORDERED: IOPAMIDOL-370 125ML BTL INJ ONE (13:21)
[2019-03-25] MEDS ORDERED: RX INFO: IV CONTRAST WAS GIVEN 1 EACH MISC MISCELLANE PRN (13:25)
[2019-03-25] MEDS ORDERED: SODIUM CHLORIDE 0.9% 1,000 ML IV SCH (13:30)
[2019-03-25 16:50] LABS: Glucose,Whole Blood 244 mg/dL (75-99)
--- NOTE | 2019-03-25 18:23 | PN ---
PROGRESS NOTE DATE OF SERVICE: CHIEF COMPLAINT: Chest pain, nausea, vomiting, and increased QT interval. HISTORY OF PRESENT ILLNESS: This lady is doing a little bit better and she is nauseated. She is not having any chest pain at this time. We await Cardiology evaluation. PHYSICAL EXAMINATION: Vital signs are normal. Chest is clear. The cardiac exam is normal. The abdomen is soft, nontender. IMPRESSION: 1. Chest pain. 2. Nausea and vomiting. 3. Prolonged QT interval. PLAN: Await for further evaluation from Cardiology and then make a determination if any further studies are necessary. MMODL / IJN: [id number] /
[2019-03-25 19:29] VITALS: RESP 18
[2019-03-25 20:04] LABS: Glucose,Whole Blood 135 mg/dL (75-99)
--- NOTE | 2019-03-25 22:06 | CC ---
CARDIAC CATHETERIZATION REPORT DATE OF SERVICE: 03/25/2019 PERFORMING PHYSICIAN: Chevy Laurent M.D. PROCEDURES PERFORMED: 1. Selective right and left coronary angiogram. 2. Left heart catheterization. INDICATION: This is a very pleasant 48-year-old female patient with smoking and significant family history of coronary artery disease who underwent in the past also an open heart surgery for ventricular septal defect, presented to the hospital again with chest discomfort. Because of the continuous chest discomfort, we decided to pursue heart catheterization. APPROACH: Right radial artery. COMPLICATIONS: None. LEVEL OF SEDATION: Moderate, with sedation length of 11 minutes. PROCEDURE DESCRIPTION: After obtaining informed consent, the patient was brought to the cardiac collaborative physician. The right radial artery was cannulated using micropuncture technique. The micropuncture wire passed easily. Then I placed a 6-Macanese sheath in the right radial artery. After that I gave the patient 2 mg of verapamil IA and 10,000 units of heparin IV. Selective right and left coronary angiogram was performed using JR4 and JL3.5 catheters. Left heart catheterization was performed using JR4 catheter which crossed the aortic valve. Then I did pullback across the valve. The procedure was completed without any complication. SELECTIVE CORONARY ANGIOGRAM: 1. The right coronary artery is a large-caliber vessel and is a dominant vessel. It is angiographically normal. It distally bifurcates into PDA and PLV branches. Both appeared to be angiographically normal. 2. The left main is angiographically normal. It bifurcates into left circumflex and left anterior descending artery. 3. The left circumflex is a large-caliber vessel. It is a nondominant vessel and appeared to be angiographically normal. In the mid portion it gives rise to an OM branch which seems to be normal. 4. The LAD is angiographically normal. It gives rise in the mid portion to first and second diagonal branches. Both appeared to be angiographically normal. HEMODYNAMICS: The LVEDP was about 10 mmHg without significant gradient across the aortic valve. CONCLUSION: 1. Normal coronary angiogram. 2. Normal left ventricular end-diastolic pressure. MMODL / IJN: [id number] /
[2019-03-25] MEDS ORDERED: LIDOCAINE 1% INJ 10MG/ML (20 ML MDV) ONE (23:51)
[2019-03-25] MEDS ORDERED: VERAPAMIL 2.5 MG/ML 2 ML AMP ONE (23:51)
[2019-03-26] MEDS ORDERED: HEPARIN SODIUM 1,000 UN/ML (10ML VL) ONE (00:10)
[2019-03-26 04:40] VITALS: TEMP 98.3
[2019-03-26 06:42] LABS: Glucose,Whole Blood 154 mg/dL (75-99)
--- NOTE | 2019-03-26 07:17 | P.PN ---
Subjective Progress Note Date: 03/26/19 Principal diagnosis: chest discomfort/status post heart catheterization this is a very pleasant 48-year-old female patient with a smoker as well as history of ventricular septal defect was repaired surgically in the past, was admitted to the hospital again with chest discomfort. Because she continues to have a chest discomfort we did recommend proceeding with heart catheterization. She underwent a heart catheterization yesterday and that revealed normal coronaries. She was seen this morning. She is asymptomatic from a perivascular standpoint overview. The right radial site seems to be soft was mild tenderness. The patient can be discharged from the cardiovascular standpoint overview. We'll follow-up with the patient in the office as an outpatient. Objective - Vital Signs Vital signs: Vital Signs Temp 98.3 F 03/26/19 04:00 Pulse 50 L 03/26/19 04:00 Resp 18 03/26/19 04:00 BP 144/86 03/26/19 04:00 Pulse Ox 96 03/26/19 04:00 Intake & Output 03/25/19 03/26/19 03/26/19 18:59 06:59 18:59 Intake Total 196.61 Balance 196.61 Intake: IV 100 Intake, IV Titration 96.61 Amount Heparin Sod,Pork in 0.45% 96.61 NaCl 25,000 unit In 0.45 % NaCl 1 250ml.bag @ 10. 302 UNITS/KG/HR 10 mls/hr IV .Q24H COUNTS INCLUDE 234 BEDS AT THE [facility] Rx#: [id number] Other: Voiding Method Toilet Toilet # Voids 1 1 - Constitutional General appearance: Present: no acute distress - Respiratory Respiratory: bilateral: CTA - Cardiovascular Rhythm: regular Heart sounds: normal: S1, S2 - Labs CBC & Chem 7: 03/24/19 10:15 03/25/19 07:02 Labs: Abnormal Lab Results - Last 24 Hours (Table) 03/25/19 03/25/19 03/25/19 Range/Units 07:02 07:05 11:50 APTT 37.2 H (22.0-30.0) sec BUN 25 H (7-17) mg/dL Glucose 168 H (74-99) mg/dL POC Glucose (mg/dL) 155 H (75-99) mg/dL AST 73 H (14-36) U/L ALT 64 H (4-34) U/L 03/25/19 03/25/19 03/26/19 Range/Units 16:49 20:03 06:40 APTT (22.0-30.0) sec BUN (7-17) mg/dL Glucose (74-99) mg/dL POC Glucose (mg/dL) 244 H 135 H 154 H (75-99) mg/dL AST (14-36) U/L ALT (4-34) U/L Assessment and Plan Assessment: assessment #1 chest discomfort which was resolved #2 normal coronaries on heart catheterization was performed yesterday #3 status post VSD repair as a child Plan #1 smoking cessation was discussed with her #2 the patient can be discharged home
[2019-03-26] MEDS: INSULIN ASPART (NovoLOG) 100 UNIT/ML VIAL SQ SCH ×2 (07:52→12:17)
[2019-03-26] MEDS: PANTOPRAZOLE 40 MG TABLET PO SCH (07:52)
[2019-03-26] MEDS: FERROUS SULFATE 325 MG TAB PO SCH (07:52)
[2019-03-26] MEDS: ATORVASTATIN 80 MG TAB PO SCH (07:52)
[2019-03-26] MEDS: INSULIN DETEMIR (LEVEMIR) 100 UNIT/ML SYR SQ SCH (07:52)
[2019-03-26] MEDS: FENOFIBRATE 160 MG TAB PO SCH (07:53)
[2019-03-26] MEDS: ACETAMINOPHEN TAB 325 MG TAB PO PRN (07:58)
[2019-03-26] MEDS ORDERED: ASPIRIN 81 MG PO SCH (09:00)
[2019-03-26 11:14] VITALS: BP 141/90; PULSE 67
[2019-03-26 11:48] LABS: Glucose,Whole Blood 145 mg/dL (75-99)
--- NOTE | 2019-03-26 16:58 | DS ---
DISCHARGE SUMMARY DATE OF DISCHARGE: 03/26/2019 CHIEF COMPLAINT: Chest pain with nausea and vomiting. HISTORY OF PRESENT ILLNESS AND PHYSICAL EXAMINATION: Details of this lady's history and physical can be found in the initial workup. LABORATORY STUDIES: While she was in the hospital she had laboratory studies, details of which can be found in the laboratory section of her chart. COURSE IN THE HOSPITAL: After admission she was placed on bedrest and seen once again by Cardiology for her chest pain and prolonged QT interval. After their evaluation, they felt there was nothing further that needed to be done. She still is having some trouble with some nausea and vomiting, but this is subsiding. It was felt that she could go home on March 26. She will go home on her usual activity, diet and medication and follow up in the office in a day or two. At that time we will increase her insulin management for her diabetes. FINAL DIAGNOSES: 1. Chest pain. 2. Prolonged QT interval. 3. Hypertension. 4. Atypical chest pain. 5. Insulin-dependent diabetes mellitus with poor control. OPERATIONS: None. CONSULTATION: Cardiology. She is improved. MMODL / IJN: [id number] /
[2019-03-26 20:11] LABS: Hepatitis A Ab, Total Non-Reactive (Non-Reactive); Hepatitis C IgG Antibody Non-Reactive (Non-Reactive)
--- NOTE | 2019-04-08 12:09 | CDI ---
Outpatient Documentation Clarification Form Date: 04/08/19 CDS/Sap Bob[employer] Developer Name: JANNET OWENS Phone: If you have question, contact Miguelina Laughlin [employer] Officer at [phone] M-F 8:30 am to 6pm. Patient Name: MIO MAURICE Admit Date: 03/24/19 Discharge Date: 03/26/19 ATTENTION: The Clinical Documentation Specialists (CDI) and [facility] Coding Staff appreciate your assistance in clarifying documentation. Please respond to the clarification below the line at the bottom and electronically sign. The CDI & [facility] Coding staff will review the response and follow-up if needed. Please note: Queries are made part of the Legal Health Record. If you have any questions, please contact the author of this message via ITS or call the [employer] Officer. Dr. Cerda, Please specify if the poor controlled diabetes mellitus is with: -hypoglycemia -hyperglycemia -unspecified Thank you for your time and consideration, Jannet Owens. MTDD
== END 2019-03-26 16:15 | disposition home or self-care (01) ==
LOC: EC 10:03 → 1SOBS 12:00
PROVIDERS: ADMIT Family Medicine; ATTEND Family Medicine
DX: R07.89 Other chest pain (principal); R11.2 Nausea with vomiting, unspecified; R10.9 Unspecified abdominal pain; R94.31 Abnormal electrocardiogram [ECG] [EKG]; I10 Essential (primary) hypertension; E11.9 Type 2 diabetes mellitus without complications; E66.01 Morbid (severe) obesity due to excess calories; Z68.41 Body mass index [BMI] 40.0-44.9, adult; R62.50 Unspecified lack of expected normal physiological development in childhood; I25.10 Atherosclerotic heart disease of native coronary artery without angina pectoris; E78.00 Pure hypercholesterolemia, unspecified; R94.39 Abnormal result of other cardiovascular function study; F17.200 Nicotine dependence, unspecified, uncomplicated; E78.5 Hyperlipidemia, unspecified; G89.29 Other chronic pain; M54.5 Low back pain; M51.9 Unspecified thoracic, thoracolumbar and lumbosacral intervertebral disc disorder; Z98.890 Other specified postprocedural states; Z87.74 Personal history of (corrected) congenital malformations of heart and circulatory system; Z87.19 Personal history of other diseases of the digestive system; Z79.899 Other long term (current) drug therapy; Z79.4 Long term (current) use of insulin; Z79.1 Long term (current) use of non-steroidal anti-inflammatories (NSAID); K21.9 Gastro-esophageal reflux disease without esophagitis; Z87.440 Personal history of urinary (tract) infections; Z82.49 Family history of ischemic heart disease and other diseases of the circulatory system
CPT/HCPCS: 96365; 96366 ×2; 96376; 99285; 36415; 93005; 93458; 86803; 80053 ×2; 83690; 83735; 84484; 85025; 85610; 85730 ×2; 86708; 86704; 71046; 76705; 78227; G0378 ×3; C8924; C1769; C1894; A9537; J2250; J1644 ×3; J2805; J2001; J1170; Q9950; Q9967; 93308

== ENCOUNTER 2019-04-01 16:41 | Inpatient (IN) | payer MEDICARE, OTHER ==
--- NOTE | 2019-04-01 16:55 | ED ---
General Adult HPI - General Chief complaint: Chest Pain Stated complaint: Not feeling well Time Seen by Provider: 04/01/19 16:52 Source: patient Mode of arrival: EMS Limitations: no limitations - History of Present Illness Initial comments: Patient presents the ED by ambulance for evaluation. Patient states that she was eating turkey at her friend's place for [place] dinner about a half an hour ago when she began to feel lightheaded. Patient states that she developed generalized abdominal pain and diffuse chest pain at that time as well. Patient states that she continues to have the symptoms, but they've improved in intensity. Patient denies trauma or injury, fever or chills, headache, focal neuro deficit, neck/arm/jaw/back pain, pleuritic pain, dyspnea, cough or cold symptoms, palpitations, syncope, nausea/vomiting/diarrhea, constipation, bloody or melanotic stool, dysuria or urinary symptoms, leg or calf swelling or pain, or any other symptoms or complaints. - Related Data Home Medications Medication Instructions Recorded Confirmed Esomeprazole Magnesium [NexIUM] 20 mg PO DAILY 01/15/19 04/01/19 Previous Rx's Medication Instructions Recorded Ferrous Sulfate [Iron (65 MG 325 mg PO BID #60 tab 02/09/19 Elemental)] INSULIN ASPART (NovoLOG) [NovoLOG 6 unit SQ AC-TID #1 vial 02/10/19 (formulary)] Insulin Detemir (Levemir) [Levemir] 20 unit SQ DAILY@0700 30 Days #1 02/10/19 pen Atorvastatin [Lipitor] 80 mg PO DAILY #30 tab 03/23/19 Fenofibrate [Lofibra] 160 mg PO DAILY #30 tab 03/23/19 Ibuprofen [Motrin] 800 mg PO Q6H PRN #120 tab 03/23/19 Allergies Allergy/AdvReac Type Severity Reaction Status Date / Time No Known Allergies Allergy Verified 04/01/19 19:19 Review of Systems ROS Statement: Those systems with pertinent positive or pertinent negative responses have been documented in the HPI. ROS Other: All systems not noted in ROS Statement are negative. Past Medical History Past Medical History: Diabetes Mellitus, GERD/Reflux, Hyperlipidemia, Syncope Additional Past Medical History / Comment(s): Pt recently admitted to [facility] on 01/11/19 with UTI/pancreatitis. Other hx: Previous pancreatitis 10/2018, NIDDM type II-pt states she is waiting to get a glucometer, developmental delay, UTI, chronic low back pain, bulging discs, dental abscesses in past, pt states she "blacked out" - last Saturday, Jan 30, 2019. History of Any Multi-Drug Resistant Organisms: None Reported Past Surgical History: Tubal Ligation Additional Past Surgical History / Comment(s): Age 7 had VSD repair Past Anesthesia/Blood Transfusion Reactions: No Reported Reaction Past Psychological History: No Psychological Hx Reported Smoking Status: Current every day smoker Past Alcohol Use History: None Reported Past Drug Use History: None Reported - Past Family History Mother Family Medical History: No Reported History Additional Family Medical History / Comment(s): Mother is healthy Father Family Medical History: No Reported History Additional Family Medical History / Comment(s): Father is healthy General Exam Limitations: no limitations General appearance: alert, in no apparent distress Head exam: Present: atraumatic, normocephalic Eye exam: Present: normal appearance, PERRL, EOMI ENT exam: Present: mucous membranes dry Neck exam: Present: other (Trachea is in midline) Respiratory exam: Present: normal lung sounds bilaterally. Absent: respiratory distress, wheezes, rales, rhonchi, chest wall tenderness Cardiovascular Exam: Present: regular rate, normal rhythm, normal heart sounds, other (Normal radial pulses bilaterally) GI/Abdominal exam: Present: soft, other (Mild generalized tenderness). Absent: distended, guarding, rebound Extremities exam: Present: other (Negative Isaac's sign bilaterally). Absent: tenderness, pedal edema, calf tenderness Back exam: Absent: CVA tenderness (R), CVA tenderness (L) Neurological exam: Present: alert, oriented X3. Absent: motor sensory deficit Psychiatric exam: Present: normal affect, normal mood Skin exam: Present: warm, dry, intact, normal color Course Vital Signs 04/01/19 04/01/19 04/01/19 16:45 17:52 18:00 Temperature 99.5 F Pulse Rate 79 89 71 Respiratory 18 18 19 Rate Blood Pressure 153/81 148/91 148/91 O2 Sat by Pulse 95 98 96 Oximetry 04/01/19 04/01/19 18:30 19:00 Temperature Pulse Rate 73 77 Respiratory 18 18 Rate Blood Pressure 150/80 138/83 O2 Sat by Pulse 96 99 Oximetry - Reevaluation(s) Reevaluation #1: 04/01/19 19:00 Case, H&P, test results and ED management were discussed with Dr. Lugo. He accepts hospital floor admission. He has no further recommendations at this time. 04/01/19 19:23 Patient states that her pain has improved with ED treatment. Patient denies development of any new symptoms while in the ED. Patient is aware of her test results, and she agrees with hospital admission at this time. EKG Findings - EKG Comments: EKG Findings:: Normal sinus rhythm, ventricular rate of 72 bpm, no ectopy, normal TX and QRS intervals, normal QT interval, EKG findings of LVH, normal axis, no ST or T-wave abnormality Medical Decision Making - Medical Decision Making I suspect that the patient's symptoms are likely secondary to acute pancreatitis given that her lipase level is 1163. Patient's troponin is negative and her EKG is fairly unremarkable. I do not think that the patient's symptoms are cardiac in etiology. Patient agrees with plan for hospital admission, and Dr. Lugo has accepted hospital admission. - Lab Data Result diagrams: 04/01/19 16:40 04/01/19 16:40 Lab Results 04/01/19 04/01/19 04/01/19 Range/Units 16:40 16:40 16:40 WBC 14.9 H (3.8-10.6) k/uL RBC 5.26 (3.80-5.40) m/uL Hgb 13.6 (11.4-16.0) gm/dL Hct 42.1 (34.0-46.0) % MCV 80.1 (80.0-100.0) fL MCH 25.9 (25.0-35.0) pg MCHC 32.3 (31.0-37.0) g/dL RDW 17.4 H (11.5-15.5) % Plt Count 604 H (150-450) k/uL Neutrophils % 74 % Lymphocytes % 18 % Monocytes % 4 % Eosinophils % 2 % Basophils % 0 % Neutrophils # 11.0 H (1.3-7.7) k/uL Lymphocytes # 2.7 (1.0-4.8) k/uL Monocytes # 0.6 (0-1.0) k/uL Eosinophils # 0.3 (0-0.7) k/uL Basophils # 0.1 (0-0.2) k/uL Anisocytosis Slight Microcytosis Slight PT (9.0-12.0) sec INR (<1.2) APTT (22.0-30.0) sec Sodium 139 (137-145) mmol/L Potassium 4.8 (3.5-5.1) mmol/L Chloride 102 (98-107) mmol/L Carbon Dioxide 21 L (22-30) mmol/L Anion Gap 16 mmol/L BUN 27 H (7-17) mg/dL Creatinine 1.05 H (0.52-1.04) mg/dL Est GFR (CKD-EPI)AfAm 74 (>60 ml/min/1.73 sqM) Est GFR (CKD-EPI)NonAf 64 (>60 ml/min/1.73 sqM) Glucose 208 H (74-99) mg/dL Calcium 9.8 (8.4-10.2) mg/dL Magnesium 1.6 (1.6-2.3) mg/dL Total Bilirubin 0.4 (0.2-1.3) mg/dL AST 49 H (14-36) U/L ALT 28 (4-34) U/L Alkaline Phosphatase 108 (38-126) U/L Troponin I (0.000-0.034) ng/mL NT-Pro-B Natriuret Pep 44 pg/mL Total Protein 8.2 (6.3-8.2) g/dL Albumin 4.7 (3.5-5.0) g/dL Amylase 86 (30-110) U/L Lipase 1163 H (23-300) U/L 04/01/19 04/01/19 Range/Units 16:40 16:40 WBC (3.8-10.6) k/uL RBC (3.80-5.40) m/uL Hgb (11.4-16.0) gm/dL Hct (34.0-46.0) % MCV (80.0-100.0) fL MCH (25.0-35.0) pg MCHC (31.0-37.0) g/dL RDW (11.5-15.5) % Plt Count (150-450) k/uL Neutrophils % % Lymphocytes % % Monocytes % % Eosinophils % % Basophils % % Neutrophils # (1.3-7.7) k/uL Lymphocytes # (1.0-4.8) k/uL Monocytes # (0-1.0) k/uL Eosinophils # (0-0.7) k/uL Basophils # (0-0.2) k/uL Anisocytosis Microcytosis PT 9.7 (9.0-12.0) sec INR 0.9 (<1.2) APTT 23.0 (22.0-30.0) sec Sodium (137-145) mmol/L Potassium (3.5-5.1) mmol/L Chloride (98-107) mmol/L Carbon Dioxide (22-30) mmol/L Anion Gap mmol/L BUN (7-17) mg/dL Creatinine (0.52-1.04) mg/dL Est GFR (CKD-EPI)AfAm (>60 ml/min/1.73 sqM) Est GFR (CKD-EPI)NonAf (>60 ml/min/1.73 sqM) Glucose (74-99) mg/dL Calcium (8.4-10.2) mg/dL Magnesium (1.6-2.3) mg/dL Total Bilirubin (0.2-1.3) mg/dL AST (14-36) U/L ALT (4-34) U/L Alkaline Phosphatase (38-126) U/L Troponin I <0.012 (0.000-0.034) ng/mL NT-Pro-B Natriuret Pep pg/mL Total Protein (6.3-8.2) g/dL Albumin (3.5-5.0) g/dL Amylase (30-110) U/L Lipase (23-300) U/L Disposition Clinical Impression: Pancreatitis, acute Disposition: ADMITTED IP TO THIS HOSP Condition: Stable Is patient prescribed a controlled substance at d/c from ED?: No Time of Disposition: 19:00
[2019-04-01] MEDS ORDERED: MAG HYDROX/AL HYDROX/SIMETH 30 ML, HYOSCYAMINE ELIXIR 10 ML, CIMETIDINE HCL 300 MG, LID... PO STA ×4 (17:00)
[2019-04-01] MEDS ORDERED: MAG HYDROX/AL HYDROX/SIMETH 30 ML, HYOSCYAMINE ELIXIR 10 ML, LIDOCAINE VISCOUS 2% 10 ML PO STA ×3 (17:03)
--- NOTE | 2019-04-01 18:14 | XR ---
EXAMINATION TYPE: XR chest 2V DATE OF EXAM: 04/01/2019 COMPARISON: 03/24/2019 HISTORY: Chest pain TECHNIQUE: 2 views FINDINGS: Heart and mediastinum are normal. Lungs are clear. Diaphragm is normal. Bony thorax appears normal. IMPRESSION: Normal chest. No change.
[2019-04-01 18:37] LABS: Anisocytosis Slight; Basophils # (A) 0.1 k/uL (0-0.2); Basophils % (A) 0 %; Eosinophils # (A) 0.3 k/uL (0-0.7); Eosinophils % (A) 2 %; HCT 42.1 % (34.0-46.0); HGB 13.6 gm/dL (11.4-16.0); Lymphocytes # (A) 2.7 k/uL (1.0-4.8); Lymphocytes % (A) 18 %; MCH 25.9 pg (25.0-35.0); MCHC 32.3 g/dL (31.0-37.0); MCV 80.1 fL (80.0-100.0); Mean Platelet Volume 7.6; Microcytosis Slight; Monocytes # (A) 0.6 k/uL (0-1.0); Monocytes % (A) 4 %; Neutrophils % (A) 74 %; Platelet Count 604 k/uL (150-450); RBC 5.26 m/uL (3.80-5.40); RDW 17.4 % (11.5-15.5); WBC 14.9 k/uL (3.8-10.6)
[2019-04-01 18:50] LABS: INR 0.9 (<1.2); Prothrombin Time 9.7 sec (9.0-12.0)
[2019-04-01 18:52] LABS: Albumin 4.7 g/dL (3.5-5.0); Calcium 9.8 mg/dL (8.4-10.2); Magnesium 1.6 mg/dL (1.6-2.3); Potassium 4.8 mmol/L (3.5-5.1); Total Bilirubin 0.4 mg/dL (0.2-1.3); Total Protein 8.2 g/dL (6.3-8.2)
[2019-04-01] MEDS ORDERED: MORPHINE SULFATE 4 MG/ML SYRINGE IVP STA (18:57)
[2019-04-01] MEDS ORDERED: ONDANSETRON 4 MG/2 ML VIAL IVP PRN (19:01)
[2019-04-01] MEDS ORDERED: NALOXONE 0.4 MG/ML 1 ML VIAL IV PRN (19:01)
[2019-04-01] MEDS: SODIUM CHLORIDE 0.9% 1,000 ML IV SCH (19:40)
[2019-04-01 23:33] LABS: Glucose,Whole Blood 191 mg/dL (75-99)
[2019-04-02 05:54] LABS: Anisocytosis Slight; Basophils # (A) 0.1 k/uL (0-0.2); Basophils % (A) 1 %; Eosinophils # (A) 0.3 k/uL (0-0.7); Eosinophils % (A) 3 %; HCT 38.5 % (34.0-46.0); HGB 11.8 gm/dL (11.4-16.0); Hypochromasia Slight; Lymphocytes # (A) 2.4 k/uL (1.0-4.8); Lymphocytes % (A) 26 %; MCH 25.2 pg (25.0-35.0); MCHC 30.8 g/dL (31.0-37.0); MCV 81.9 fL (80.0-100.0); Mean Platelet Volume 6.8; Microcytosis Slight; Monocytes # (A) 0.4 k/uL (0-1.0); Monocytes % (A) 4 %; Neutrophils # (A) 6.2 k/uL (1.3-7.7); Neutrophils % (A) 65 %; Platelet Count 464 k/uL (150-450); RDW 17.9 % (11.5-15.5); WBC 9.5 k/uL (3.8-10.6)
[2019-04-02] MEDS: SODIUM CHLORIDE 0.9% 1,000 ML IV SCH ×2 (05:54→14:09)
[2019-04-02] MEDS: MORPHINE SULFATE 4 MG/ML SYRINGE IV PRN ×3 (05:55→20:46)
[2019-04-02 06:30] LABS: Albumin 3.9 g/dL (3.5-5.0); Calcium 9.3 mg/dL (8.4-10.2); Potassium 4.6 mmol/L (3.5-5.1); Total Bilirubin 0.4 mg/dL (0.2-1.3); Total Protein 6.7 g/dL (6.3-8.2)
[2019-04-02 08:22] LABS: Glucose,Whole Blood 173 mg/dL (75-99)
[2019-04-02 11:08] LABS: Glucose,Whole Blood 144 mg/dL (75-99)
[2019-04-02] MEDS: INSULIN ASPART (NovoLOG) 100 UNIT/ML VIAL SQ SCH ×3 (14:08→20:32)
--- NOTE | 2019-04-02 15:20 | HP ---
HISTORY AND PHYSICAL CHIEF COMPLAINT: Epigastric pain. HISTORY OF PRESENT ILLNESS: This is another recent admission for this 48-year-old white female who has been having recurrent episodes of pancreatitis. She also has insulin-dependent diabetes mellitus and hypertension. She started to develop increasing pain, came to emergency room where here lipase was over 1000. REVIEW OF SYSTEMS: She has had no headaches, syncope, chest pain, shortness of breath, diaphoresis, hematemesis, melena, hematochezia, jaundice, renal failure, frequency, urgency, dysuria, etc. Past medical history, family history, personal and social histories are all otherwise unremarkable or unchanged. PHYSICAL EXAM: Blood pressure 117/58, pulse 66, respirations 16 and she is afebrile. In general, she appeared to be overweight, but in no acute distress. Head, ears, eyes, nose, mouth, and throat were normal and the chest is clear. Cardiac exam is normal. The abdomen is protuberant and slightly tender over the epigastrium. Bowel sounds present. Extremities normal. Neurologically, she is intact. She is admitted to the hospital with a diagnosis of: 1. Acute pancreatitis. 2. Recurrent pancreatitis. 3. Insulin-dependent diabetes mellitus. 4. Obesity. PLAN: 1. Bed rest. 2. IV fluids. 3. IV analgesics. MMODL / IJN: [id number] /
[2019-04-02 17:06] LABS: Glucose,Whole Blood 110 mg/dL (75-99)
[2019-04-02 19:47] LABS: Glucose,Whole Blood 104 mg/dL (75-99)
[2019-04-03] MEDS: SODIUM CHLORIDE 0.9% 1,000 ML IV SCH ×2 (01:50→10:12)
[2019-04-03] MEDS: MORPHINE SULFATE 4 MG/ML SYRINGE IV PRN ×3 (04:27→19:18)
[2019-04-03 07:16] LABS: Glucose,Whole Blood 138 mg/dL (75-99)
[2019-04-03] MEDS: INSULIN ASPART (NovoLOG) 100 UNIT/ML VIAL SQ SCH ×4 (07:46→20:43)
[2019-04-03 11:13] LABS: Glucose,Whole Blood 122 mg/dL (75-99)
[2019-04-03 17:20] LABS: Glucose,Whole Blood 110 mg/dL (75-99)
--- NOTE | 2019-04-03 18:47 | PN ---
PROGRESS NOTE CHIEF COMPLAINT: Pancreatitis. HISTORY OF PRESENTING ILLNESS: This lady is doing a little bit better. She still has quite a bit of discomfort. However, her lipase is coming down. PHYSICAL EXAMINATION: Color is good. Hydration is good. Chest is clear. Cardiac exam is normal. She is tender over the epigastrium and bowel sounds are present. IMPRESSION: 1. Pancreatitis. 2. Diabetes. PLAN: Continue to monitor lipase. She will probably be able to go home in a day or two. MMODL / IJN: [id number] /
[2019-04-03 19:55] LABS: Glucose,Whole Blood 120 mg/dL (75-99)
[2019-04-04] MEDS: MORPHINE SULFATE 4 MG/ML SYRINGE IV PRN ×3 (05:18→19:28)
[2019-04-04] MEDS: SODIUM CHLORIDE 0.9% 1,000 ML IV SCH ×4 (05:22→19:31)
[2019-04-04 06:58] LABS: Glucose,Whole Blood 117 mg/dL (75-99)
[2019-04-04] MEDS: INSULIN ASPART (NovoLOG) 100 UNIT/ML VIAL SQ SCH ×4 (08:07→20:56)
[2019-04-04 11:23] LABS: Glucose,Whole Blood 117 mg/dL (75-99)
--- NOTE | 2019-04-04 13:45 | PN ---
PROGRESS NOTE CHIEF COMPLAINT: Pancreatitis. HISTORY OF PRESENT ILLNESS: This lady is doing a lot better and pain is slowly subsiding. She has no further nausea and vomiting. We will start to advance her diet. PHYSICAL EXAM: Abdomen is still a bit tender over the epigastrium. Chest is clear. Cardiac exam is normal. IMPRESSION: Pancreatitis. PLAN: Advance diet and probably home in the next day or 2. MMODL / IJN: [id number] /
[2019-04-04 17:05] LABS: Glucose,Whole Blood 171 mg/dL (75-99)
[2019-04-04 20:03] LABS: Glucose,Whole Blood 146 mg/dL (75-99)
[2019-04-05] MEDS: MORPHINE SULFATE 4 MG/ML SYRINGE IV PRN ×4 (00:59→20:22)
[2019-04-05 07:00] LABS: Glucose,Whole Blood 142 mg/dL (75-99)
[2019-04-05] MEDS: INSULIN ASPART (NovoLOG) 100 UNIT/ML VIAL SQ SCH ×4 (07:24→20:22)
[2019-04-05 11:17] LABS: Glucose,Whole Blood 233 mg/dL (75-99)
[2019-04-05] MEDS: SODIUM CHLORIDE 0.9% 1,000 ML IV SCH (12:09)
[2019-04-05 17:10] LABS: Glucose,Whole Blood 123 mg/dL (75-99)
[2019-04-05 20:18] LABS: Glucose,Whole Blood 221 mg/dL (75-99)
--- NOTE | 2019-04-05 20:32 | PN ---
PROGRESS NOTE CHIEF COMPLAINT: Pancreatitis. HISTORY OF PRESENT ILLNESS: This lady continues to improve and abdominal pain is almost gone. She is eating a regular diet and she seems to be stable. Blood sugars are still slightly high. PHYSICAL EXAMINATION: Chest is clear. Cardiac exam is normal. Abdomen is protuberant, soft, nontender. IMPRESSION: 1. Pancreatitis. 2. Insulin-dependent diabetes mellitus. PLAN: Probably home tomorrow. MMODL / IJN: [id number] /
[2019-04-06] MEDS: SODIUM CHLORIDE 0.9% 1,000 ML IV SCH ×3 (06:09→22:25)
[2019-04-06 06:46] LABS: Glucose,Whole Blood 151 mg/dL (75-99)
[2019-04-06] MEDS: INSULIN ASPART (NovoLOG) 100 UNIT/ML VIAL SQ SCH ×4 (07:21→21:36)
[2019-04-06] MEDS: MORPHINE SULFATE 4 MG/ML SYRINGE IV PRN ×4 (07:24→22:22)
[2019-04-06 11:36] LABS: Glucose,Whole Blood 161 mg/dL (75-99)
[2019-04-06 16:42] LABS: Glucose,Whole Blood 171 mg/dL (75-99)
--- NOTE | 2019-04-06 21:08 | PN ---
PROGRESS NOTE CHIEF COMPLAINT: Pancreatitis. HISTORY OF PRESENT ILLNESS: This lady is doing better, but lipase is still elevated. This will be repeated. She has had no vomiting. PHYSICAL EXAM: Abdomen is soft and she is a little bit tender over the epigastrium. Chest is clear. Cardiac exam is normal. IMPRESSION: Pancreatitis. PLAN: Repeat lipase. This appears to be going down very slowly. Blood sugars are also slightly elevated. Her discharge will be held for another day and she will be evaluated tomorrow. MMODL / IJN: [id number] /
[2019-04-06 21:28] LABS: Glucose,Whole Blood 170 mg/dL (75-99)
[2019-04-07 04:21] VITALS: RESP 18
[2019-04-07] MEDS: MORPHINE SULFATE 4 MG/ML SYRINGE IV PRN (06:07)
[2019-04-07 06:50] LABS: Glucose,Whole Blood 136 mg/dL (75-99)
[2019-04-07] MEDS: INSULIN ASPART (NovoLOG) 100 UNIT/ML VIAL SQ SCH ×2 (07:35→12:31)
[2019-04-07] MEDS: SODIUM CHLORIDE 0.9% 1,000 ML IV SCH (07:42)
[2019-04-07 11:17] LABS: Glucose,Whole Blood 149 mg/dL (75-99)
[2019-04-07 11:48] VITALS: BP 131/74; PULSE 50; TEMP 98.4
--- NOTE | 2019-04-07 13:47 | DS ---
DISCHARGE SUMMARY DATE OF SERVICE: 04/07/2019 CHIEF COMPLAINT: Epigastric pain AND pancreatitis. HISTORY OF PRESENT ILLNESS AND PHYSICAL EXAM: Details of this lady's history and physical can be found in the initial workup. LABORATORY STUDIES: While she was in a hospital, she had laboratory studies, details of which can be found in the laboratory section of her chart. COURSE IN HOSPITAL: After admission, she was placed on bedrest and started on intravenous fluids and monitoring of the lipase, which came down very slowly. Her blood sugars were elevated, but these also began to gradually trend down. She is doing well on 04/07 with of very little pain and no nausea, vomiting, and a continually dropping lipase. It was felt that she could go home, but she will go home on usual activity, diet and medication and be seen in the office in several days. FINAL DIAGNOSES: 1. Acute pancreatitis. 2. Insulin-dependent diabetes mellitus with poor control. 3. Obesity. OPERATIONS: None. CONSULTATION: None. She is improved. MMODL / IJN: [id number] /
== END 2019-04-07 14:55 | disposition home or self-care (01) | DRG 439 ==
LOC: EC 16:41 → 5NMEDONC 19:01 → OBSVTOIN 04-02 13:49
PROVIDERS: ADMIT Family Medicine; ATTEND Family Medicine
DX: K85.90 Acute pancreatitis without necrosis or infection, unspecified (principal); Z68.41 Body mass index [BMI] 40.0-44.9, adult; K86.1 Other chronic pancreatitis; I10 Essential (primary) hypertension; E11.65 Type 2 diabetes mellitus with hyperglycemia; E66.9 Obesity, unspecified; E78.5 Hyperlipidemia, unspecified; Z79.4 Long term (current) use of insulin; F17.210 Nicotine dependence, cigarettes, uncomplicated; Z79.899 Other long term (current) drug therapy
CPT/HCPCS: 36415; 71046; 80053; 82150; 83690; 83735; 83880; 84484; 85025; 85610; 85730; 93005; 94760; 96374; 99285

== ENCOUNTER 2019-04-08 17:57 | Emergency (ER) | payer MEDICARE, OTHER ==
[2019-04-08] MEDS ORDERED: ONDANSETRON 4 MG/2 ML VIAL IVP STA (18:25)
[2019-04-08] MEDS ORDERED: SODIUM CHLORIDE 0.9% 1,000 ML IV STA (18:25)
[2019-04-08] MEDS ORDERED: MORPHINE SULFATE 4 MG/ML SYRINGE IV STA (18:25)
[2019-04-08 18:41] LABS: Anisocytosis Slight; Basophils % (A) 0 %; Eosinophils # (A) 0.3 k/uL (0-0.7); Eosinophils % (A) 3 %; HCT 38.4 % (34.0-46.0); Lymphocytes # (A) 2.2 k/uL (1.0-4.8); Lymphocytes % (A) 20 %; MCH 25.6 pg (25.0-35.0); MCHC 31.2 g/dL (31.0-37.0); Mean Platelet Volume 6.8; Microcytosis Slight; Monocytes # (A) 0.4 k/uL (0-1.0); Monocytes % (A) 4 %; Neutrophils % (A) 72 %; Platelet Count 504 k/uL (150-450); RBC 4.68 m/uL (3.80-5.40); RDW 17.7 % (11.5-15.5); WBC 11.1 k/uL (3.8-10.6)
[2019-04-08 18:50] LABS: Albumin 4.1 g/dL (3.5-5.0); Calcium 8.9 mg/dL (8.4-10.2); Potassium 4.7 mmol/L (3.5-5.1); Total Bilirubin 0.4 mg/dL (0.2-1.3); Total Protein 7.1 g/dL (6.3-8.2)
[2019-04-08 18:59] LABS: Appearance,Urine Clear (Clear); Bilirubin,Urine Negative (Negative); Blood,Urine Negative (Negative); Color,Urine Light Yellow; Glucose,Urine (UA) 4+ (Negative); Ketones,Urine Negative (Negative); Leukocyte Esterase,Urine Negative (Negative); Nitrite,Urine Negative (Negative); PH, Urine 5.5 (5.0-8.0); Protein,Urine Trace (Negative); Specific Gravity,Urine 1.021 (1.001-1.035); Urobilinogen,Urine <2.0 mg/dL (<2.0)
--- NOTE | 2019-04-08 19:02 | XR ---
EXAMINATION TYPE: XR KUB DATE OF EXAM: 04/08/2019 COMPARISON: 01/24/2019 HISTORY: Vomiting TECHNIQUE: 2 views upright FINDINGS: There is no sign of intestinal obstruction or pneumoperitoneum. Fecal pattern is normal. Th ere is no evidence of a mass. There are clips from tubal ligation. Lung bases are clear. There are no pathologic calcifications over the kidneys. IMPRESSION: Nonacute abdomen. No change.
[2019-04-08] MEDS ORDERED: INSULIN ASPART (NovoLOG) 100 UNIT/ML VIAL SQ STA (19:13)
[2019-04-08] MEDS ORDERED: SODIUM CHLORIDE 0.9% 1,000 ML IV ONE (19:13)
--- NOTE | 2019-04-08 19:15 | ED ---
Abdominal Pain HPI - General Chief Complaint: Abdominal Pain Stated Complaint: ABD PAIN Time Seen by Provider: 04/08/19 17:58 Source: patient Mode of arrival: EMS Limitations: no limitations - History of Present Illness Initial Comments: 48-year-old female patient presents to the emergency department today for evaluation of upper abdominal pain. Patient states that she was admitted with pancreatitis at the end of March. Patient states that the pain feels similar to when she was admitted that day. States over the last couple days the pain has been increasing in intensity. Denies any radiation of the pain through to her back. States she has had some nausea today but no vomiting. Denies any constipation or diarrhea. Denies fever or chills. Denies any hematochezia, melena, or hematemesis. Denies any hematuria, dysuria, urinary frequency, urinary urgency. States she is eating and drinking without difficulty. Patient denies any recent rash, shortness breath, chest pain, numbness, tingling, dizziness, weakness, headache, visual changes, or any other complaints. - Related Data Home Medications Medication Instructions Recorded Confirmed Esomeprazole Magnesium [NexIUM] 20 mg PO DAILY 01/15/19 04/01/19 Previous Rx's Medication Instructions Recorded Ferrous Sulfate [Iron (65 MG 325 mg PO BID #60 tab 02/09/19 Elemental)] INSULIN ASPART (NovoLOG) [NovoLOG 6 unit SQ AC-TID #1 vial 02/10/19 (formulary)] Insulin Detemir (Levemir) [Levemir] 20 unit SQ DAILY@0700 30 Days #1 02/10/19 pen Atorvastatin [Lipitor] 80 mg PO DAILY #30 tab 03/23/19 Fenofibrate [Lofibra] 160 mg PO DAILY #30 tab 03/23/19 Ibuprofen [Motrin] 800 mg PO Q6H PRN #120 tab 03/23/19 Allergies Allergy/AdvReac Type Severity Reaction Status Date / Time No Known Allergies Allergy Verified 04/08/19 18:01 Review of Systems ROS Statement: Those systems with pertinent positive or pertinent negative responses have been documented in the HPI. ROS Other: All systems not noted in ROS Statement are negative. Past Medical History Past Medical History: Diabetes Mellitus, GERD/Reflux, Hyperlipidemia, Syncope Additional Past Medical History / Comment(s): Pt recently admitted to [facility] on 01/11/19 with UTI/pancreatitis. Other hx: Previous pancreatitis 10/2018, NIDDM type II-pt states she is waiting to get a glucometer, developmental delay, UTI, chronic low back pain, bulging discs, dental abscesses in past, pt states she "blacked out" - last Saturday, Jan 30, 2019. History of Any Multi-Drug Resistant Organisms: None Reported Past Surgical History: Tubal Ligation Additional Past Surgical History / Comment(s): Age 7 had VSD repair Past Anesthesia/Blood Transfusion Reactions: No Reported Reaction Past Psychological History: No Psychological Hx Reported Smoking Status: Current every day smoker Past Alcohol Use History: None Reported Past Drug Use History: None Reported - Past Family History Mother Family Medical History: No Reported History Additional Family Medical History / Comment(s): Mother is healthy Father Family Medical History: No Reported History Additional Family Medical History / Comment(s): Father is healthy General Exam Limitations: no limitations General appearance: alert, in no apparent distress, other (This is a well- developed, well-nourished adult female patient in no acute distress. Vital signs upon presentation are temperature 99.3F, pulse 75, respirations 16, blood pressure 172/84, pulse ox 98% on room air.) Eye exam: Present: normal appearance, PERRL, EOMI. Absent: scleral icterus, conjunctival injection, periorbital swelling ENT exam: Present: normal exam, normal oropharynx, mucous membranes moist Respiratory exam: Present: normal lung sounds bilaterally. Absent: respiratory distress, wheezes, rales, rhonchi, stridor Cardiovascular Exam: Present: regular rate, normal rhythm, normal heart sounds. Absent: systolic murmur, diastolic murmur, rubs, gallop, clicks GI/Abdominal exam: Present: soft, normal bowel sounds. Absent: distended, tenderness, guarding, rebound, rigid Back exam: Present: normal inspection. Absent: CVA tenderness (R), CVA tenderness (L) Neurological exam: Present: alert, oriented X3, CN II-XII intact Psychiatric exam: Present: normal affect, normal mood Skin exam: Present: warm, dry, intact, normal color. Absent: rash Course Vital Signs 04/08/19 04/08/19 04/08/19 17:59 19:36 21:31 Temperature 99.3 F 98.1 F Pulse Rate 75 74 63 Respiratory 16 17 17 Rate Blood Pressure 172/84 152/64 146/83 O2 Sat by Pulse 98 97 99 Oximetry 04/08/19 22:00 Temperature Pulse Rate 60 Respiratory 16 Rate Blood Pressure 122/75 O2 Sat by Pulse 99 Oximetry Medical Decision Making - Medical Decision Making 48 year-old female patient presents to the emergency department today for evaluation of upper abdominal pain. Physical examination did reveal some midepigastric tenderness. Labs reviewed and did reveal mildly elevated lipase at 600. But sugar is elevated at 500. We did give 2 L of normal saline. We did contact blood sugar with insulin. She is feeling better after receiving fluids and pain medication here in the emergency department. To be discharged. The primary care physician for recheck in 1-2 days. She is instructed to start with clear liquid diet and advance as tolerated. Return parameters were discussed in detail. She verbalizes understanding and agrees with this plan. - Lab Data Result diagrams: 04/08/19 18:07 04/08/19 18:07 Lab Results 04/08/19 04/08/19 04/08/19 Range/Units 18:07 18:07 18:07 WBC 11.1 H (3.8-10.6) k/uL RBC 4.68 (3.80-5.40) m/uL Hgb 12.0 (11.4-16.0) gm/dL Hct 38.4 (34.0-46.0) % MCV 82.0 (80.0-100.0) fL MCH 25.6 (25.0-35.0) pg MCHC 31.2 (31.0-37.0) g/dL RDW 17.7 H (11.5-15.5) % Plt Count 504 H (150-450) k/uL Neutrophils % 72 % Lymphocytes % 20 % Monocytes % 4 % Eosinophils % 3 % Basophils % 0 % Neutrophils # 8.0 H (1.3-7.7) k/uL Lymphocytes # 2.2 (1.0-4.8) k/uL Monocytes # 0.4 (0-1.0) k/uL Eosinophils # 0.3 (0-0.7) k/uL Basophils # 0.0 (0-0.2) k/uL Anisocytosis Slight Microcytosis Slight Sodium 136 L (137-145) mmol/L Potassium 4.7 (3.5-5.1) mmol/L Chloride 105 (98-107) mmol/L Carbon Dioxide 18 L (22-30) mmol/L Anion Gap 13 mmol/L BUN 17 (7-17) mg/dL Creatinine 1.19 H (0.52-1.04) mg/dL Est GFR (CKD-EPI)AfAm 63 (>60 ml/min/1.73 sqM) Est GFR (CKD-EPI)NonAf 55 (>60 ml/min/1.73 sqM) Glucose 508 H* (74-99) mg/dL POC Glucose (mg/dL) (75-99) mg/dL POC Glu Shearing Machine Operator ID Calcium 8.9 (8.4-10.2) mg/dL Total Bilirubin 0.4 (0.2-1.3) mg/dL AST 30 (14-36) U/L ALT 43 H (4-34) U/L Alkaline Phosphatase 108 (38-126) U/L Troponin I <0.012 (0.000-0.034) ng/mL Total Protein 7.1 (6.3-8.2) g/dL Albumin 4.1 (3.5-5.0) g/dL Amylase 42 (30-110) U/L Lipase 685 H (23-300) U/L Urine Color Urine Appearance (Clear) Urine pH (5.0-8.0) Ur Specific [place] (1.001-1.035) Urine Protein (Negative) Urine Glucose (UA) (Negative) Urine Ketones (Negative) Urine Blood (Negative) Urine Nitrite (Negative) Urine Bilirubin (Negative) Urine Urobilinogen (<2.0) mg/dL Ur Leukocyte Esterase (Negative) 04/08/19 04/08/19 04/08/19 Range/Units 18:07 20:33 21:34 WBC (3.8-10.6) k/uL RBC (3.80-5.40) m/uL Hgb (11.4-16.0) gm/dL Hct (34.0-46.0) % MCV (80.0-100.0) fL MCH (25.0-35.0) pg MCHC (31.0-37.0) g/dL RDW (11.5-15.5) % Plt Count (150-450) k/uL Neutrophils % % Lymphocytes % % Monocytes % % Eosinophils % % Basophils % % Neutrophils # (1.3-7.7) k/uL Lymphocytes # (1.0-4.8) k/uL Monocytes # (0-1.0) k/uL Eosinophils # (0-0.7) k/uL Basophils # (0-0.2) k/uL Anisocytosis Microcytosis Sodium (137-145) mmol/L Potassium (3.5-5.1) mmol/L Chloride (98-107) mmol/L Carbon Dioxide (22-30) mmol/L Anion Gap mmol/L BUN (7-17) mg/dL Creatinine (0.52-1.04) mg/dL Est GFR (CKD-EPI)AfAm (>60 ml/min/1.73 sqM) Est GFR (CKD-EPI)NonAf (>60 ml/min/1.73 sqM) Glucose (74-99) mg/dL POC Glucose (mg/dL) 467 H 392 H (75-99) mg/dL POC Glu Shearing Machine Operator ID Corie, Mariela Gallo Calcium (8.4-10.2) mg/dL Total Bilirubin (0.2-1.3) mg/dL AST (14-36) U/L ALT (4-34) U/L Alkaline Phosphatase (38-126) U/L Troponin I (0.000-0.034) ng/mL Total Protein (6.3-8.2) g/dL Albumin (3.5-5.0) g/dL Amylase (30-110) U/L Lipase (23-300) U/L Urine Color Light Yellow Urine Appearance Clear (Clear) Urine pH 5.5 (5.0-8.0) Ur Specific [place] 1.021 (1.001-1.035) Urine Protein Trace H (Negative) Urine Glucose (UA) 4+ H (Negative) Urine Ketones Negative (Negative) Urine Blood Negative (Negative) Urine Nitrite Negative (Negative) Urine Bilirubin Negative (Negative) Urine Urobilinogen <2.0 (<2.0) mg/dL Ur Leukocyte Esterase Negative (Negative) 04/08/19 Range/Units 22:09 WBC (3.8-10.6) k/uL RBC (3.80-5.40) m/uL Hgb (11.4-16.0) gm/dL Hct (34.0-46.0) % MCV (80.0-100.0) fL MCH (25.0-35.0) pg MCHC (31.0-37.0) g/dL RDW (11.5-15.5) % Plt Count (150-450) k/uL Neutrophils % % Lymphocytes % % Monocytes % % Eosinophils % % Basophils % % Neutrophils # (1.3-7.7) k/uL Lymphocytes # (1.0-4.8) k/uL Monocytes # (0-1.0) k/uL Eosinophils # (0-0.7) k/uL Basophils # (0-0.2) k/uL Anisocytosis Microcytosis Sodium (137-145) mmol/L Potassium (3.5-5.1) mmol/L Chloride (98-107) mmol/L Carbon Dioxide (22-30) mmol/L Anion Gap mmol/L BUN (7-17) mg/dL Creatinine (0.52-1.04) mg/dL Est GFR (CKD-EPI)AfAm (>60 ml/min/1.73 sqM) Est GFR (CKD-EPI)NonAf (>60 ml/min/1.73 sqM) Glucose (74-99) mg/dL POC Glucose (mg/dL) 298 H (75-99) mg/dL POC Glu Shearing Machine Operator ID Mariela Fontenot Calcium (8.4-10.2) mg/dL Total Bilirubin (0.2-1.3) mg/dL AST (14-36) U/L ALT (4-34) U/L Alkaline Phosphatase (38-126) U/L Troponin I (0.000-0.034) ng/mL Total Protein (6.3-8.2) g/dL Albumin (3.5-5.0) g/dL Amylase (30-110) U/L Lipase (23-300) U/L Urine Color Urine Appearance (Clear) Urine pH (5.0-8.0) Ur Specific [place] (1.001-1.035) Urine Protein (Negative) Urine Glucose (UA) (Negative) Urine Ketones (Negative) Urine Blood (Negative) Urine Nitrite (Negative) Urine Bilirubin (Negative) Urine Urobilinogen (<2.0) mg/dL Ur Leukocyte Esterase (Negative) - Radiology Data Radiology results: report reviewed, image reviewed KUB x-ray is obtained. Report was reviewed in its entirety. Impression by Dr. Roland shows nonacute abdomen. No change. Disposition Clinical Impression: Abdominal pain, Pancreatitis Disposition: HOME SELF-CARE Condition: Good Instructions (If sedation given, give patient instructions): Pancreatitis (ED), Abdominal Pain (ED) Additional Instructions: Do clear liquid diet and advance as tolerated. Follow low-fat diet. Follow up to primary care physician for recheck in 1-2 days. Return to the emergency department immediately for any new, worsening, or concerning symptoms. Is patient prescribed a controlled substance at d/c from ED?: No Referrals: Guillermo Cerda MD [Primary Care Provider] - 1-2 days Time of Disposition: 22:18
[2019-04-08 20:34] LABS: Glucose,Whole Blood 467 mg/dL (75-99)
[2019-04-08] MEDS ORDERED: INSULIN REGULAR 100 UNIT/ML VIAL IV STA (20:36)
[2019-04-08] MEDS ORDERED: MORPHINE SULFATE 2 MG/ML SYRINGE IVP STA (20:56)
[2019-04-08 21:32] VITALS: TEMP 98.1
[2019-04-08 21:36] LABS: Glucose,Whole Blood 392 mg/dL (75-99)
[2019-04-08 22:11] LABS: Glucose,Whole Blood 298 mg/dL (75-99)
[2019-04-08 22:12] VITALS: BP 122/75; PULSE 60; RESP 16
== END 2019-04-08 22:58 | disposition home or self-care (01) ==
LOC: EC 17:57
DX: K85.90 Acute pancreatitis without necrosis or infection, unspecified (principal); R74.8 Abnormal levels of other serum enzymes; E11.9 Type 2 diabetes mellitus without complications; K21.9 Gastro-esophageal reflux disease without esophagitis; F17.200 Nicotine dependence, unspecified, uncomplicated; Z79.899 Other long term (current) drug therapy; Z87.74 Personal history of (corrected) congenital malformations of heart and circulatory system
CPT/HCPCS: 36415; 93005; 80053; 82150; 83690; 84484; 85025; 81003; 74018; 99285; 96374; 96375; 96376; 96361 ×4; J2270 ×2; J2405

== ENCOUNTER 2019-04-10 12:53 | Emergency (ER) | payer MEDICARE, OTHER ==
[2019-04-10 13:19] VITALS: TEMP 99.3
[2019-04-10] MEDS ORDERED: SODIUM CHLORIDE 0.9% 1,000 ML IV STA ×2 (13:46)
[2019-04-10] MEDS ORDERED: KETOROLAC 30 MG/ML 1 ML VIAL IVP STA (13:58)
--- NOTE | 2019-04-10 14:16 | ED ---
Nausea/Vomiting/Diarrhea HPI - General Chief complaint: Nausea/Vomiting/Diarrhea Stated complaint: aches Time Seen by Provider: 04/10/19 13:45 Source: patient, EMS, RN notes reviewed, old records reviewed Mode of arrival: EMS - History of Present Illness Initial comments: Patient is a 48-year-old female with history of pancreatitis. He presents today with 1 day of nausea vomiting and epigastric pain. Patient states she was admitted at the end of March for pancreatitis. She denies alcohol use. She is a type I diabetic. She manages with insulin. Patient reports that she'll blood sugars have been under control. She denies any fevers or chills. She denies any chest pain or shortness of breath. Patient states that she just has general aches and pains. Patient reports that she swelling with Dr. Cerda in 2 weeks. - Related Data Home Medications Medication Instructions Recorded Confirmed Esomeprazole Magnesium [NexIUM] 20 mg PO DAILY 01/15/19 04/01/19 Previous Rx's Medication Instructions Recorded Ferrous Sulfate [Iron (65 MG 325 mg PO BID #60 tab 02/09/19 Elemental)] INSULIN ASPART (NovoLOG) [NovoLOG 6 unit SQ AC-TID #1 vial 02/10/19 (formulary)] Insulin Detemir (Levemir) [Levemir] 20 unit SQ DAILY@0700 30 Days #1 02/10/19 pen Atorvastatin [Lipitor] 80 mg PO DAILY #30 tab 03/23/19 Fenofibrate [Lofibra] 160 mg PO DAILY #30 tab 03/23/19 Ibuprofen [Motrin] 800 mg PO Q6H PRN #120 tab 03/23/19 Ondansetron Odt [Zofran Odt] 4 mg PO Q8HR PRN #12 tab 04/10/19 Pantoprazole [Protonix] 40 mg PO DAILY #30 tablet. 04/10/19 Allergies Allergy/AdvReac Type Severity Reaction Status Date / Time No Known Allergies Allergy Verified 04/08/19 18:01 Review of Systems ROS Statement: Those systems with pertinent positive or pertinent negative responses have been documented in the HPI. ROS Other: All systems not noted in ROS Statement are negative. Past Medical History Past Medical History: Diabetes Mellitus, GERD/Reflux, Hyperlipidemia, Syncope Additional Past Medical History / Comment(s): Pt recently admitted to [facility] on 01/11/19 with UTI/pancreatitis. Other hx: Previous pancreatitis 10/2018, NIDDM type II-pt states she is waiting to get a glucometer, developmental delay, UTI, chronic low back pain, bulging discs, dental abscesses in past, pt states she "blacked out" - last Saturday, Jan 30, 2019. History of Any Multi-Drug Resistant Organisms: None Reported Past Surgical History: Tubal Ligation Additional Past Surgical History / Comment(s): Age 7 had VSD repair Past Anesthesia/Blood Transfusion Reactions: No Reported Reaction Past Psychological History: No Psychological Hx Reported Smoking Status: Current every day smoker Past Alcohol Use History: None Reported Past Drug Use History: None Reported - Past Family History Mother Family Medical History: No Reported History Additional Family Medical History / Comment(s): Mother is healthy Father Family Medical History: No Reported History Additional Family Medical History / Comment(s): Father is healthy General Exam General appearance: alert, in no apparent distress Head exam: Present: atraumatic, normocephalic, normal inspection Eye exam: Present: normal appearance, PERRL, EOMI. Absent: scleral icterus, conjunctival injection, periorbital swelling ENT exam: Present: normal exam, mucous membranes moist Neck exam: Present: normal inspection. Absent: tenderness, meningismus, lymphadenopathy Respiratory exam: Present: normal lung sounds bilaterally. Absent: respiratory distress, wheezes, rales, rhonchi, stridor Cardiovascular Exam: Present: regular rate, normal rhythm, normal heart sounds. Absent: systolic murmur, diastolic murmur, rubs, gallop, clicks GI/Abdominal exam: Present: soft, tenderness (epigastric), normal bowel sounds. Absent: distended, guarding, rebound, rigid Extremities exam: Present: normal inspection Back exam: Present: normal inspection Neurological exam: Present: alert, oriented X3, CN II-XII intact Psychiatric exam: Present: normal affect, normal mood Skin exam: Present: warm, dry, intact, normal color. Absent: rash Course Vital Signs 04/10/19 13:11 Temperature 99.3 F Pulse Rate 65 Respiratory 18 Rate Blood Pressure 152/80 O2 Sat by Pulse 96 Oximetry Medical Decision Making - Medical Decision Making 48-year-old female presents today for evaluation for concerns for abdominal pain, nausea vomiting. Laboratory was reviewed. She does have an elevated lipase at 720. This is mildly increased from her last visit. Patient did have a full hydration for pancreatitis which was last admitted, did have ultrasounds which showed no cholelithiasis or inflammatory changes in the gallbladder. White blood cell count is normal. She had no further vomiting and emergency department. Patient's CBC is otherwise unremarkable. KUB shows no obstructive bowel gas pattern. Patient at this time will be advised to follow-up with Dr. Cerda, and close follow-up with her PCP. Patient is agreeable treatment plan. Return parameters were discussed. Discharging with Zofran and Protonix. - Lab Data Result diagrams: 04/10/19 15:05 04/10/19 15:05 Lab Results 04/10/19 04/10/19 04/10/19 Range/Units 15:05 15:05 15:05 WBC 11.8 H (3.8-10.6) k/uL RBC 4.71 (3.80-5.40) m/uL Hgb 12.0 (11.4-16.0) gm/dL Hct 37.9 (34.0-46.0) % MCV 80.3 (80.0-100.0) fL MCH 25.5 (25.0-35.0) pg MCHC 31.7 (31.0-37.0) g/dL RDW 17.2 H (11.5-15.5) % Plt Count 537 H (150-450) k/uL Neutrophils % 71 % Lymphocytes % 21 % Monocytes % 4 % Eosinophils % 3 % Basophils % 0 % Neutrophils # 8.3 H (1.3-7.7) k/uL Lymphocytes # 2.5 (1.0-4.8) k/uL Monocytes # 0.4 (0-1.0) k/uL Eosinophils # 0.3 (0-0.7) k/uL Basophils # 0.1 (0-0.2) k/uL Anisocytosis Slight Microcytosis Slight Sodium 137 (137-145) mmol/L Potassium 4.6 (3.5-5.1) mmol/L Chloride 106 (98-107) mmol/L Carbon Dioxide 19 L (22-30) mmol/L Anion Gap 12 mmol/L BUN 21 H (7-17) mg/dL Creatinine 0.73 (0.52-1.04) mg/dL Est GFR (CKD-EPI)AfAm >90 (>60 ml/min/1.73 sqM) Est GFR (CKD-EPI)NonAf >90 (>60 ml/min/1.73 sqM) Glucose 243 H (74-99) mg/dL Calcium 9.6 (8.4-10.2) mg/dL Total Bilirubin 0.4 (0.2-1.3) mg/dL AST 30 (14-36) U/L ALT 33 (4-34) U/L Alkaline Phosphatase 112 (38-126) U/L Total Protein 7.4 (6.3-8.2) g/dL Albumin 4.2 (3.5-5.0) g/dL Amylase 57 (30-110) U/L Lipase 728 H (23-300) U/L Urine Color Yellow Urine Appearance Clear (Clear) Urine pH 5.5 (5.0-8.0) Ur Specific [place] 1.023 (1.001-1.035) Urine Protein 1+ H (Negative) Urine Glucose (UA) 1+ H (Negative) Urine Ketones Negative (Negative) Urine Blood Negative (Negative) Urine Nitrite Negative (Negative) Urine Bilirubin Negative (Negative) Urine Urobilinogen <2.0 (<2.0) mg/dL Ur Leukocyte Esterase Negative (Negative) Urine RBC 1 (0-5) /hpf Urine WBC <1 (0-5) /hpf Ur Squamous Epith Cells 5 H (0-4) /hpf Urine Bacteria Rare H (None) /hpf Hyaline Casts 1 (0-2) /lpf Urine Mucus Rare H (None) /hpf Influenza Type A RNA (Not Detectd) Influenza Type B (PCR) (Not Detectd) 04/10/19 Range/Units 15:21 WBC (3.8-10.6) k/uL RBC (3.80-5.40) m/uL Hgb (11.4-16.0) gm/dL Hct (34.0-46.0) % MCV (80.0-100.0) fL MCH (25.0-35.0) pg MCHC (31.0-37.0) g/dL RDW (11.5-15.5) % Plt Count (150-450) k/uL Neutrophils % % Lymphocytes % % Monocytes % % Eosinophils % % Basophils % % Neutrophils # (1.3-7.7) k/uL Lymphocytes # (1.0-4.8) k/uL Monocytes # (0-1.0) k/uL Eosinophils # (0-0.7) k/uL Basophils # (0-0.2) k/uL Anisocytosis Microcytosis Sodium (137-145) mmol/L Potassium (3.5-5.1) mmol/L Chloride (98-107) mmol/L Carbon Dioxide (22-30) mmol/L Anion Gap mmol/L BUN (7-17) mg/dL Creatinine (0.52-1.04) mg/dL Est GFR (CKD-EPI)AfAm (>60 ml/min/1.73 sqM) Est GFR (CKD-EPI)NonAf (>60 ml/min/1.73 sqM) Glucose (74-99) mg/dL Calcium (8.4-10.2) mg/dL Total Bilirubin (0.2-1.3) mg/dL AST (14-36) U/L ALT (4-34) U/L Alkaline Phosphatase (38-126) U/L Total Protein (6.3-8.2) g/dL Albumin (3.5-5.0) g/dL Amylase (30-110) U/L Lipase (23-300) U/L Urine Color Urine Appearance (Clear) Urine pH (5.0-8.0) Ur Specific [place] (1.001-1.035) Urine Protein (Negative) Urine Glucose (UA) (Negative) Urine Ketones (Negative) Urine Blood (Negative) Urine Nitrite (Negative) Urine Bilirubin (Negative) Urine Urobilinogen (<2.0) mg/dL Ur Leukocyte Esterase (Negative) Urine RBC (0-5) /hpf Urine WBC (0-5) /hpf Ur Squamous Epith Cells (0-4) /hpf Urine Bacteria (None) /hpf Hyaline Casts (0-2) /lpf Urine Mucus (None) /hpf Influenza Type A RNA Not Detected (Not Detectd) Influenza Type B (PCR) Not Detected (Not Detectd) - Radiology Data Radiology results: report reviewed KUB shows unremarkable abdomen. Disposition Clinical Impression: Elevated lipase, Epigastric pain Disposition: HOME SELF-CARE Condition: Good Instructions (If sedation given, give patient instructions): Acute Nausea and Vomiting (ED) Additional Instructions: Please use medication as discussed. Please follow up with family doctor if symptoms have not improved over the next two days. Please return to the emergency room if your symptoms increase or worsen or for any other concerns. Prescriptions: Pantoprazole [Protonix] 40 mg PO DAILY #30 tablet. Ondansetron Odt [Zofran Odt] 4 mg PO Q8HR PRN #12 tab PRN Reason: Nausea Is patient prescribed a controlled substance at d/c from ED?: No Referrals: Guillermo Cerda MD [Primary Care Provider] - 1-2 days Time of Disposition: 16:49
--- NOTE | 2019-04-10 14:32 | XR ---
EXAMINATION TYPE: XR KUB DATE OF EXAM: 04/10/2019 COMPARISON: 04/08/2019 HISTORY: Pain TECHNIQUE: Abdomen is examined in the upright view FINDINGS: Normal colonic bowel gas is present. Some nonspecific small bowel gas is present. No free air is evident. No suspicious air-fluid levels or differential air-fluid levels are present. Psoas margins are normal. Organomegaly is not evident. Osseous structures appear unremarkable. IMPRESSION: 1. Unremarkable abdomen.
[2019-04-10 15:22] LABS: Anisocytosis Slight; Basophils # (A) 0.1 k/uL (0-0.2); Basophils % (A) 0 %; Eosinophils # (A) 0.3 k/uL (0-0.7); Eosinophils % (A) 3 %; HCT 37.9 % (34.0-46.0); Lymphocytes # (A) 2.5 k/uL (1.0-4.8); Lymphocytes % (A) 21 %; MCH 25.5 pg (25.0-35.0); MCHC 31.7 g/dL (31.0-37.0); MCV 80.3 fL (80.0-100.0); Mean Platelet Volume 7.6; Microcytosis Slight; Monocytes # (A) 0.4 k/uL (0-1.0); Monocytes % (A) 4 %; Neutrophils # (A) 8.3 k/uL (1.3-7.7); Neutrophils % (A) 71 %; Platelet Count 537 k/uL (150-450); RBC 4.71 m/uL (3.80-5.40); RDW 17.2 % (11.5-15.5); WBC 11.8 k/uL (3.8-10.6)
[2019-04-10 15:32] LABS: Appearance,Urine Clear (Clear); Bacteria,Urine Rare /hpf; Bilirubin,Urine Negative (Negative); Blood,Urine Negative (Negative); Color,Urine Yellow; Glucose,Urine (UA) 1+ (Negative); Hyaline Casts,Urine 1 /lpf (0-2); Ketones,Urine Negative (Negative); Leukocyte Esterase,Urine Negative (Negative); Mucus,Urine Rare /hpf; Nitrite,Urine Negative (Negative); PH, Urine 5.5 (5.0-8.0); Protein,Urine 1+ (Negative); RBC,Urine 1 /hpf (0-5); Specific Gravity,Urine 1.023 (1.001-1.035); Squamous Epithelial Cell,Urine 5 /hpf (0-4); Urobilinogen,Urine <2.0 mg/dL (<2.0); WBC,Urine <1 /hpf (0-5)
[2019-04-10 15:34] LABS: ALT 33 U/L (4-34); AST 30 U/L (14-36); African American GFR (CKD) >90 (>60 ml/min/1.73 sqM); Albumin 4.2 g/dL (3.5-5.0); Alkaline Phosphatase 112 U/L (38-126); Amylase 57 U/L (30-110); Anion Gap 12 mmol/L; Blood Urea Nitrogen 21 mg/dL (7-17); Calcium 9.6 mg/dL (8.4-10.2); Carbon Dioxide 19 mmol/L (22-30); Chloride 106 mmol/L (98-107); Glucose 243 mg/dL (74-99); Non-African American GFR(CKD) >90 (>60 ml/min/1.73 sqM); Potassium 4.6 mmol/L (3.5-5.1); Sodium 137 mmol/L (137-145); Total Bilirubin 0.4 mg/dL (0.2-1.3); Total Protein 7.4 g/dL (6.3-8.2)
[2019-04-10 17:34] VITALS: BP 142/87; PULSE 66; RESP 16
== END 2019-04-10 17:53 | disposition home or self-care (01) ==
LOC: EC 12:53
DX: R10.13 Epigastric pain (principal); R74.8 Abnormal levels of other serum enzymes; R11.2 Nausea with vomiting, unspecified; R19.7 Diarrhea, unspecified; E10.9 Type 1 diabetes mellitus without complications; K21.9 Gastro-esophageal reflux disease without esophagitis; F17.200 Nicotine dependence, unspecified, uncomplicated; Z79.899 Other long term (current) drug therapy
CPT/HCPCS: 36415; 80053; 82150; 83690; 85025; 81001; 87502; 74018; 99284; 96374; 96361 ×2; J1885

== ENCOUNTER 2019-04-11 19:18 | Inpatient (IN) | payer MEDICARE, OTHER ==
[2019-04-11] MEDS ORDERED: MORPHINE SULFATE 4 MG/ML SYRINGE IVP STA (19:53)
[2019-04-11] MEDS ORDERED: SODIUM CHLORIDE 0.9% 500 ML 500 ML IV STA (19:53)
[2019-04-11 20:12] LABS: Anisocytosis Slight; Basophils # (A) 0.1 k/uL (0-0.2); Basophils % (A) 0 %; Eosinophils # (A) 0.3 k/uL (0-0.7); Eosinophils % (A) 2 %; HCT 36.5 % (34.0-46.0); HGB 11.6 gm/dL (11.4-16.0); Lymphocytes # (A) 2.8 k/uL (1.0-4.8); Lymphocytes % (A) 22 %; MCH 25.7 pg (25.0-35.0); MCHC 31.8 g/dL (31.0-37.0); MCV 80.8 fL (80.0-100.0); Mean Platelet Volume 7.3; Microcytosis Slight; Monocytes # (A) 0.4 k/uL (0-1.0); Monocytes % (A) 3 %; Neutrophils # (A) 8.9 k/uL (1.3-7.7); Neutrophils % (A) 70 %; Platelet Count 565 k/uL (150-450); RBC 4.51 m/uL (3.80-5.40); RDW 17.5 % (11.5-15.5); WBC 12.6 k/uL (3.8-10.6)
[2019-04-11 20:21] LABS: INR 0.9 (<1.2); Partial Thromboplastin Time 23.5 sec (22.0-30.0); Prothrombin Time 9.4 sec (9.0-12.0)
[2019-04-11 20:23] LABS: Albumin 3.9 g/dL (3.5-5.0); Calcium 9.2 mg/dL (8.4-10.2); Magnesium 1.4 mg/dL (1.6-2.3); Potassium 4.2 mmol/L (3.5-5.1); Total Bilirubin 0.3 mg/dL (0.2-1.3)
--- NOTE | 2019-04-11 20:23 | XR ---
EXAMINATION TYPE: XR chest 2V DATE OF EXAM: 04/11/2019 COMPARISON: NONE HISTORY: Chest pain TECHNIQUE: 2 views FINDINGS: Heart and mediastinum are normal. Lungs are clear. Diaphragm is normal. Bony thorax appears normal. IMPRESSION: Normal chest. No change.
--- NOTE | 2019-04-11 20:42 | ED ---
General Adult HPI - General Source: patient, EMS, RN notes reviewed Mode of arrival: EMS Limitations: no limitations <Ariel Johnson - Last Filed: 04/11/19 20:47> <Ti Ratliff - Last Filed: 04/11/19 22:56> - General Chief complaint: Chest Pain Stated complaint: Chest Pain Time Seen by Provider: 04/11/19 19:25 - History of Present Illness Initial comments: 48-year-old female with a past medical history of NIDDM, GERD, hyperlipidemia, pancreatitis, developmental delay presents to the emergency department for a chief complaint of chest pain. Patient states that she has had chest pain for the past 2 hours. States that she was sitting on the couch when it started. States it is a sharp stabbing chest pain. Patient denies any radiating pain to the back neck or shoulders. She denies diaphoresis. She denies any associated shortness of breath. Patient was seen here yesterday for abdominal pain and discharged home. She apparently went to [facility] this morning for nausea and was also discharged home. It appears that she had a dip you remain stress echocardiogram in March which revealed minor EKG changes with a normal echocardiogram. This was repeated 2 weeks ago which was again a limited study. Cardiac catheterization was performed on April 06 which showed a normal coronary angiogram and patient was cleared by a cardiology standpoint.Patient has no other complaints at this time including shortness of breath, abdominal pain, nausea or vomiting, headache, or visual changes. Ultrasound of the gallbladder was normal however did reveal positive Jurado sign. Therefore HIDA scan was performed which showed a normal exam. (Ariel Johnson) - Related Data Home Medications Medication Instructions Recorded Confirmed Esomeprazole Magnesium [NexIUM] 20 mg PO DAILY 01/15/19 04/01/19 Previous Rx's Medication Instructions Recorded Ferrous Sulfate [Iron (65 MG 325 mg PO BID #60 tab 02/09/19 Elemental)] INSULIN ASPART (NovoLOG) [NovoLOG 6 unit SQ AC-TID #1 vial 02/10/19 (formulary)] Insulin Detemir (Levemir) [Levemir] 20 unit SQ DAILY@0700 30 Days #1 02/10/19 pen Atorvastatin [Lipitor] 80 mg PO DAILY #30 tab 03/23/19 Fenofibrate [Lofibra] 160 mg PO DAILY #30 tab 03/23/19 Ibuprofen [Motrin] 800 mg PO Q6H PRN #120 tab 03/23/19 Ondansetron Odt [Zofran Odt] 4 mg PO Q8HR PRN #12 tab 04/10/19 Pantoprazole [Protonix] 40 mg PO DAILY #30 tablet. 04/10/19 Allergies Allergy/AdvReac Type Severity Reaction Status Date / Time No Known Allergies Allergy Verified 04/08/19 18:01 Review of Systems ROS Other: All systems not noted in ROS Statement are negative. <Ariel Johnson - Last Filed: 04/11/19 20:47> ROS Other: All systems not noted in ROS Statement are negative. <Ti Ratliff - Last Filed: 04/11/19 22:56> ROS Statement: Those systems with pertinent positive or pertinent negative responses have been documented in the HPI. Past Medical History Past Medical History: Diabetes Mellitus, GERD/Reflux, Hyperlipidemia, Syncope Additional Past Medical History / Comment(s): Pt recently admitted to [facility] on 01/11/19 with UTI/pancreatitis. Other hx: Previous pancreatitis 10/2018, NIDDM type II-pt states she is waiting to get a glucometer, developmental delay, UTI, chronic low back pain, bulging discs, dental abscesses in past, pt states she "blacked out" - last Saturday, Jan 30, 2019. History of Any Multi-Drug Resistant Organisms: None Reported Past Surgical History: Tubal Ligation Additional Past Surgical History / Comment(s): Age 7 had VSD repair Past Anesthesia/Blood Transfusion Reactions: No Reported Reaction Past Psychological History: No Psychological Hx Reported Smoking Status: Current every day smoker Past Alcohol Use History: None Reported Past Drug Use History: None Reported - Past Family History Mother Family Medical History: No Reported History Additional Family Medical History / Comment(s): Mother is healthy Father Family Medical History: No Reported History Additional Family Medical History / Comment(s): Father is healthy <Ariel Johnson - Last Filed: 04/11/19 20:47> General Exam Limitations: no limitations General appearance: alert, in no apparent distress Head exam: Present: atraumatic, normocephalic, normal inspection Eye exam: Present: normal appearance, PERRL, EOMI. Absent: scleral icterus, conjunctival injection, periorbital swelling ENT exam: Present: normal exam, mucous membranes moist Neck exam: Present: normal inspection. Absent: tenderness, meningismus, lymphadenopathy Respiratory exam: Present: normal lung sounds bilaterally, chest wall tenderness (Anterior chest wall tenderness). Absent: respiratory distress, wheezes, rales, rhonchi, stridor Cardiovascular Exam: Present: regular rate, normal rhythm, normal heart sounds. Absent: systolic murmur, diastolic murmur, rubs, gallop, clicks GI/Abdominal exam: Present: soft, normal bowel sounds. 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 ] Respiratory 17 17 18 Rate Blood Pressure 153/78 152/79 157/79 O2 Sat by Pulse 98 99 99 Oximetry Medical Decision Making - Lab Data Result diagrams: 04/11/19 19:30 04/11/19 19:30 <Ariel Johnson - Last Filed: 04/11/19 20:47> - Lab Data Result diagrams: 04/11/19 19:30 04/11/19 19:30 - Radiology Data Radiology results: report reviewed (I did review the imaging and report or is evidence of bilateral infiltrates the pulmonary shayan no change from the previous.), image reviewed <Ti Ratliff - Last Filed: 04/11/19 22:56> - Medical Decision Making Patient is resting comfortably he feels well is temperature is normalized she was clinically dehydrated. We did a long discussion regarding the findings she does not wish to stay in hospital tonight he is to continue increasing his oral fluids continue his current medications keep his follow-up with Dr. Meza in 3 days as planned and return if any issues any problems or any questions they're both in agreement with this. Additionally the patient is white count is improving (Ti Ratliff) - Lab Data Lab Results 04/11/19 04/11/19 04/11/19 Range/Units 19:30 19:30 19:30 WBC 12.6 H (3.8-10.6) k/uL RBC 4.51 (3.80-5.40) m/uL Hgb 11.6 (11.4-16.0) gm/dL Hct 36.5 (34.0-46.0) % MCV 80.8 (80.0-100.0) fL MCH 25.7 (25.0-35.0) pg MCHC 31.8 (31.0-37.0) g/dL RDW 17.5 H (11.5-15.5) % Plt Count 565 H (150-450) k/uL Neutrophils % 70 % Lymphocytes % 22 % Monocytes % 3 % Eosinophils % 2 % Basophils % 0 % Neutrophils # 8.9 H (1.3-7.7) k/uL Lymphocytes # 2.8 (1.0-4.8) k/uL Monocytes # 0.4 (0-1.0) k/uL Eosinophils # 0.3 (0-0.7) k/uL Basophils # 0.1 (0-0.2) k/uL Anisocytosis Slight Microcytosis Slight PT (9.0-12.0) sec INR (<1.2) APTT (22.0-30.0) sec Sodium 137 (137-145) mmol/L Potassium 4.2 (3.5-5.1) mmol/L Chloride 108 H (98-107) mmol/L Carbon Dioxide 18 L (22-30) mmol/L Anion Gap 11 mmol/L BUN 17 (7-17) mg/dL Creatinine 1.08 H (0.52-1.04) mg/dL Est GFR (CKD-EPI)AfAm 71 (>60 ml/min/1.73 sqM) Est GFR (CKD-EPI)NonAf 62 (>60 ml/min/1.73 sqM) Glucose 205 H (74-99) mg/dL Calcium 9.2 (8.4-10.2) mg/dL Magnesium 1.4 L (1.6-2.3) mg/dL Total Bilirubin 0.3 (0.2-1.3) mg/dL AST 33 (14-36) U/L ALT 31 (4-34) U/L Alkaline Phosphatase 118 (38-126) U/L Troponin I (0.000-0.034) ng/mL NT-Pro-B Natriuret Pep 71 pg/mL Total Protein 7.0 (6.3-8.2) g/dL Albumin 3.9 (3.5-5.0) g/dL Amylase 64 (30-110) U/L Lipase 891 H (23-300) U/L 04/11/19 04/11/19 Range/Units 19:30 19:30 WBC (3.8-10.6) k/uL RBC (3.80-5.40) m/uL Hgb (11.4-16.0) gm/dL Hct (34.0-46.0) % MCV (80.0-100.0) fL MCH (25.0-35.0) pg MCHC (31.0-37.0) g/dL RDW (11.5-15.5) % Plt Count (150-450) k/uL Neutrophils % % Lymphocytes % % Monocytes % % Eosinophils % % Basophils % % Neutrophils # (1.3-7.7) k/uL Lymphocytes # (1.0-4.8) k/uL Monocytes # (0-1.0) k/uL Eosinophils # (0-0.7) k/uL Basophils # (0-0.2) k/uL Anisocytosis Microcytosis PT 9.4 (9.0-12.0) sec INR 0.9 (<1.2) APTT 23.5 (22.0-30.0) sec Sodium (137-145) mmol/L Potassium (3.5-5.1) mmol/L Chloride (98-107) mmol/L Carbon Dioxide (22-30) mmol/L Anion Gap mmol/L BUN (7-17) mg/dL Creatinine (0.52-1.04) mg/dL Est GFR (CKD-EPI)AfAm (>60 ml/min/1.73 sqM) Est GFR (CKD-EPI)NonAf (>60 ml/min/1.73 sqM) Glucose (74-99) mg/dL Calcium (8.4-10.2) mg/dL Magnesium (1.6-2.3) mg/dL Total Bilirubin (0.2-1.3) mg/dL AST (14-36) U/L ALT (4-34) U/L Alkaline Phosphatase (38-126) U/L Troponin I <0.012 (0.000-0.034) ng/mL NT-Pro-B Natriuret Pep pg/mL Total Protein (6.3-8.2) g/dL Albumin (3.5-5.0) g/dL Amylase (30-110) U/L Lipase (23-300) U/L Disposition <Ariel Johnson - Last Filed: 04/11/19 20:47> Is patient prescribed a controlled substance at d/c from ED?: No <Ti Ratliff - Last Filed: 04/11/19 22:56> Clinical Impression: Lung cancer, hilus, Pneumonitis, Fever, History of chemotherapy Disposition: HOME SELF-CARE Condition: Good Instructions (If sedation given, give patient instructions): Lung Cancer (DC), Bronchiolitis (ED), Pneumonitis (ED) Additional Instructions: Continue with your current medication Referrals: Guillermo Cerda MD [Primary Care Provider] - 1-2 days
[2019-04-11] MEDS ORDERED: MAGNESIUM OXIDE 400 MG TAB PO STA (20:49)
--- NOTE | 2019-04-11 22:59 | ED ---
Medical Decision Making - Medical Decision Making The information this chart was inadvertently placed and does have another patient the patient will be admitted I had discussed the case with Dr. Cerda. Patient has demonstrate evidence of pancreatitis and atypical chest pain. She did have a cardiac catheterization which was within normal limits recently. - Lab Data Result diagrams: 04/13/19 05:30 04/13/19 05:30 Lab Results 04/11/19 04/11/19 04/11/19 Range/Units 19:30 19:30 19:30 WBC 12.6 H (3.8-10.6) k/uL RBC 4.51 (3.80-5.40) m/uL Hgb 11.6 (11.4-16.0) gm/dL Hct 36.5 (34.0-46.0) % MCV 80.8 (80.0-100.0) fL MCH 25.7 (25.0-35.0) pg MCHC 31.8 (31.0-37.0) g/dL RDW 17.5 H (11.5-15.5) % Plt Count 565 H (150-450) k/uL Neutrophils % 70 % Lymphocytes % 22 % Monocytes % 3 % Eosinophils % 2 % Basophils % 0 % Neutrophils # 8.9 H (1.3-7.7) k/uL Lymphocytes # 2.8 (1.0-4.8) k/uL Monocytes # 0.4 (0-1.0) k/uL Eosinophils # 0.3 (0-0.7) k/uL Basophils # 0.1 (0-0.2) k/uL Anisocytosis Slight Microcytosis Slight PT (9.0-12.0) sec INR (<1.2) APTT (22.0-30.0) sec Sodium 137 (137-145) mmol/L Potassium 4.2 (3.5-5.1) mmol/L Chloride 108 H (98-107) mmol/L Carbon Dioxide 18 L (22-30) mmol/L Anion Gap 11 mmol/L BUN 17 (7-17) mg/dL Creatinine 1.08 H (0.52-1.04) mg/dL Est GFR (CKD-EPI)AfAm 71 (>60 ml/min/1.73 sqM) Est GFR (CKD-EPI)NonAf 62 (>60 ml/min/1.73 sqM) Glucose 205 H (74-99) mg/dL Calcium 9.2 (8.4-10.2) mg/dL Magnesium 1.4 L (1.6-2.3) mg/dL Total Bilirubin 0.3 (0.2-1.3) mg/dL AST 33 (14-36) U/L ALT 31 (4-34) U/L Alkaline Phosphatase 118 (38-126) U/L Troponin I (0.000-0.034) ng/mL NT-Pro-B Natriuret Pep 71 pg/mL Total Protein 7.0 (6.3-8.2) g/dL Albumin 3.9 (3.5-5.0) g/dL Amylase 64 (30-110) U/L Lipase 891 H (23-300) U/L 04/11/19 04/11/19 Range/Units 19:30 19:30 WBC (3.8-10.6) k/uL RBC (3.80-5.40) m/uL Hgb (11.4-16.0) gm/dL Hct (34.0-46.0) % MCV (80.0-100.0) fL MCH (25.0-35.0) pg MCHC (31.0-37.0) g/dL RDW (11.5-15.5) % Plt Count (150-450) k/uL Neutrophils % % Lymphocytes % % Monocytes % % Eosinophils % % Basophils % % Neutrophils # (1.3-7.7) k/uL Lymphocytes # (1.0-4.8) k/uL Monocytes # (0-1.0) k/uL Eosinophils # (0-0.7) k/uL Basophils # (0-0.2) k/uL Anisocytosis Microcytosis PT 9.4 (9.0-12.0) sec INR 0.9 (<1.2) APTT 23.5 (22.0-30.0) sec Sodium (137-145) mmol/L Potassium (3.5-5.1) mmol/L Chloride (98-107) mmol/L Carbon Dioxide (22-30) mmol/L Anion Gap mmol/L BUN (7-17) mg/dL Creatinine (0.52-1.04) mg/dL Est GFR (CKD-EPI)AfAm (>60 ml/min/1.73 sqM) Est GFR (CKD-EPI)NonAf (>60 ml/min/1.73 sqM) Glucose (74-99) mg/dL Calcium (8.4-10.2) mg/dL Magnesium (1.6-2.3) mg/dL Total Bilirubin (0.2-1.3) mg/dL AST (14-36) U/L ALT (4-34) U/L Alkaline Phosphatase (38-126) U/L Troponin I <0.012 (0.000-0.034) ng/mL NT-Pro-B Natriuret Pep pg/mL Total Protein (6.3-8.2) g/dL Albumin (3.5-5.0) g/dL Amylase (30-110) U/L Lipase (23-300) U/L Disposition Clinical Impression: Atypical chest pain, Pancreatitis Disposition: ADMITTED IP TO THIS [facility] Condition: Stable
[2019-04-11] MEDS ORDERED: SODIUM CHLORIDE 0.9% 1,000 ML IV STA (23:07)
[2019-04-11] MEDS ORDERED: METOCLOPRAMIDE 5 MG/ML 2 ML VIAL IVP PRN (23:07)
[2019-04-12] MEDS: HYDROmorphone 0.5 MG/0.5 ML SYRINGE IVP PRN ×4 (00:11→22:21)
[2019-04-12 05:57] LABS: Glucose,Whole Blood 140 mg/dL (75-99)
[2019-04-12 08:34] LABS: Cholesterol 206 mg/dL (<200); HDL Cholesterol 28 mg/dL (40-60); Triglycerides 426 mg/dL (<150)
[2019-04-12] MEDS: ASPIRIN 325 MG TAB PO SCH (08:54)
[2019-04-12] MEDS ORDERED: ONDANSETRON ODT 4 MG TAB PO PRN (09:28)
[2019-04-12 11:32] LABS: Glucose,Whole Blood 152 mg/dL (75-99)
[2019-04-12] MEDS: INSULIN ASPART (NovoLOG) 100 UNIT/ML VIAL SQ SCH ×2 (11:56→16:54)
[2019-04-12] MEDS: ACETAMINOPHEN TAB 325 MG TAB PO PRN ×2 (11:57→20:00)
--- NOTE | 2019-04-12 15:02 | HP ---
HISTORY AND PHYSICAL CHIEF COMPLAINT: Epigastric pain. HISTORY OF PRESENT ILLNESS: This is another recent admission for this lady who has been in and out of the hospital lately with pancreatitis. She is also an insulin-dependent diabetic. The etiology for her recurrent pancreatitis is not clear. She started to have epigastric pain and vomiting and came back to the hospital again. REVIEW OF SYSTEMS: She has had no fever, chills, hematemesis, diarrhea, melena, etc. Past medical history, family history, personal and social histories are all otherwise unchanged, unremarkable. PHYSICAL EXAMINATION: Blood pressure is 140/85 with a pulse of 83, respirations of 34, and she is afebrile. In general, she appeared to be obese, in no acute distress. Skin color is normal. Skin is warm, dry. Lymph nodes not enlarged. Head, ears, eyes, nose, mouth, and throat were normal. Neck veins not distended. Thyroid is not enlarged. CHEST: Clear. Cardiac exam is normal. The abdomen is tender over the epigastrium. There are no masses. Flanks nontender. Bowel sounds are present. Extremities normal. Neurologically she is intact. IMPRESSION: 1. Chronic relapsing pancreatitis. 2. Insulin-dependent diabetes mellitus. PLAN: IV fluids, analgesics and GI consult. We will also obtain lipid studies. MMODL / IJN: [id number] /
[2019-04-12 16:51] LABS: Glucose,Whole Blood 123 mg/dL (75-99)
[2019-04-12] MEDS: FERROUS SULFATE 325 MG TAB PO SCH (20:00)
[2019-04-12 20:10] LABS: Glucose,Whole Blood 153 mg/dL (75-99)
[2019-04-12] MEDS: INSULIN DETEMIR (LEVEMIR) 100 UNIT/ML SYR SQ SCH (20:43)
[2019-04-13 00:19] LABS: Magnesium 1.6 mg/dL (1.6-2.3); Potassium 4.3 mmol/L (3.5-5.1)
[2019-04-13] MEDS ORDERED: Magnesium Replacement Protocol 1 EACH MISC MISCELLANE PRN (06:17)
[2019-04-13 06:30] LABS: Glucose,Whole Blood 133 mg/dL (75-99)
[2019-04-13] MEDS: MAGNESIUM SULFATE-D5W PMX 1 GM in DEXTROSE/WATER 1 100ML.BAG IVPB SCH ×2 (06:48→09:12)
[2019-04-13] MEDS: PANTOPRAZOLE 40 MG TABLET PO SCH (06:49)
[2019-04-13] MEDS: HYDROmorphone 0.5 MG/0.5 ML SYRINGE IVP PRN ×3 (06:51→23:09)
[2019-04-13] MEDS: INSULIN ASPART (NovoLOG) 100 UNIT/ML VIAL SQ SCH ×3 (06:51→17:12)
--- NOTE | 2019-04-13 08:15 | P.CRDCN ---
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 Patient was in the hospital last month with symptoms of chest discomfort she underwent a cardiac catheterization which revealed normal coronary arteries at that time. She also had an echocardiogram with Doppler study performed on that visit which revealed a normal left ventricular systolic function. According to the patient, she was just resting on her bed and developed midsternal chest discomfort with mild associated nausea. Chest x-ray on presentation here was normal. EKG showed a normal sinus rhythm with no acute changes. Blood pressure 148/68 with a heart rate in the 50s, 97% on room air. White blood cell count 12.6, hemoglobin 11.6, platelet count 565. Sodium 137, potassium 4.3, BUN 17, creatinine 1.0. Magnesium on admission 1.4, 1.6 this morning. Troponins are negative 3. Cholesterol is 206, triglycerides 426, HDL 28 and LDL not calculated. Lipase 891 and amylase 64. At the time of my examination this morning, patient is currently chest pain-free she states that the chest pain dissipated shortly after arriving to the emergency room. Past Medical History Past Medical History: Diabetes Mellitus, GERD/Reflux, Hyperlipidemia, Syncope Additional Past Medical History / Comment(s): Pt recently admitted to [facility] on 01/11/19 with UTI/pancreatitis. Other hx: Previous pancreatitis 10/2018, NIDDM type II-pt states she is waiting to get a glucometer, developmental delay, UTI, chronic low back pain, bulging discs, dental abscesses in past, pt states she "blacked out" - last Saturday, Jan 30, 2019. History of Any Multi-Drug Resistant Organisms: None Reported Past Surgical History: Tubal Ligation Additional Past Surgical History / Comment(s): Age 7 had VSD repair Past Anesthesia/Blood Transfusion Reactions: No Reported Reaction Past Psychological History: No Psychological Hx Reported Additional Psychological History / Comment(s): Pt resides with her fiancee. She uses no assistive devices. She does not drive. She gets to appointments by walking or using the bus system. She has a glucometer at home. Smoking Status: Current every day smoker Past Alcohol Use History: None Reported Additional Past Alcohol Use History / Comment(s): Pt started smoking in 2000- smokes 5 cigarettes a day. Past Drug Use History: None Reported - Past Family History Mother Family Medical History: No Reported History Additional Family Medical History / Comment(s): Mother is healthy Father Family Medical History: No Reported History Additional Family Medical History / Comment(s): Father is healthy Medications and Allergies Home Medications Medication Instructions Recorded Confirmed Type Esomeprazole Magnesium [NexIUM] 20 mg PO DAILY 01/15/19 04/11/19 History Ferrous Sulfate [Iron (65 MG 325 mg PO BID #60 tab 02/09/19 04/11/19 Rx Elemental)] INSULIN ASPART (NovoLOG) [NovoLOG 6 unit SQ AC-TID #1 vial 02/10/19 04/11/19 Rx (formulary)] Atorvastatin [Lipitor] 80 mg PO DAILY #30 tab 03/23/19 04/11/19 Rx Fenofibrate [Lofibra] 160 mg PO DAILY #30 tab 03/23/19 04/11/19 Rx Ibuprofen [Motrin] 800 mg PO Q6H PRN #120 tab 03/23/19 04/11/19 Rx Ondansetron Odt [Zofran Odt] 4 mg PO Q8HR PRN #12 tab 04/10/19 04/11/19 Rx Pantoprazole [Protonix] 40 mg PO DAILY #30 tablet. 04/10/19 04/11/19 Rx Insulin Detemir (Levemir) [Levemir] 20 unit SQ HS 04/11/19 04/11/19 History Allergies Allergy/AdvReac Type Severity Reaction Status Date / Time No Known Allergies Allergy Verified 04/11/19 23:29 Physical Exam Vitals: Vital Signs Temp Pulse Resp BP Pulse Ox 04/13/19 04:00 43 L 18 148/67 97 04/13/19 00:00 98.4 F 55 L 18 114/54 98 04/12/19 20:00 98.6 F 46 L 18 149/74 97 04/12/19 15:18 52 L 16 04/12/19 15:17 97.6 F 52 L 16 134/63 97 04/12/19 11:52 43 L 16 04/12/19 11:50 98.1 F 43 L 16 142/68 97 Intake and Output 04/12/19 04/13/19 04/13/19 22:59 06:59 14:59 Intake Total 200 240 Balance 200 240 Intake: Oral 200 240 Other: Voiding Method Toilet Toilet # Voids 1 2 # Bowel Movements 1 Weight 96.8 kg PHYSICAL EXAMINATION: GENERAL: 48-year-old female in no acute distress at the time of my examination HEENT: Head is atraumatic, normocephalic. Pupils equal, round. Sclera anicteric. Conjunctiva are clear. Mucous membranes of the mouth are moist. Neck is supple. There is no elevated jugular venous pressure. No carotid bruit is heard. HEART EXAMINATION: Heart S1, S2 normal. No murmur or gallop heard. CHEST EXAMINATION: Lungs are clear to auscultation and precussion. No chest wall tenderness is noted on palpation or with deep breathing. ABDOMEN: Soft, nontender. Bowel sounds are heard. No organomegaly noted. EXTREMITIES: 2+ peripheral pulses with no evidence of peripheral edema and no calf tenderness noted. NEUROLOGIC patient is awake, alert and oriented 3 . . Results 04/11/19 19:30 04/12/19 23:58 Cardiac Enzymes 04/12/19 Range/Units 07:20 Troponin I <0.012 (0.000-0.034) ng/mL Lipids 04/12/19 Range/Units 07:20 Triglycerides 426 H (<150) mg/dL Cholesterol 206 H (<200) mg/dL HDL Cholesterol 28 L (40-60) mg/dL Comprehensive Metabolic Panel 04/12/19 Range/Units 23:58 Potassium 4.3 (3.5-5.1) mmol/L Current Medications Generic Name Dose Route Start Last Admin Trade Name Freq PRN Reason Stop Dose Admin Acetaminophen 650 mg 04/12/19 11:37 04/12/19 20:00 Tylenol Tab PO 650 mg Q6HR PRN Administration Fever and/ or Pain Aspirin 325 mg 04/12/19 09:00 04/12/19 08:54 Aspirin PO 325 mg DAILY YARON Administration Fenofibrate 160 mg 04/13/19 09:00 Lofibra PO DAILY [facility] Ferrous Sulfate 325 mg 04/12/19 21:00 04/12/19 20:00 Feosol PO 325 mg BID YARON Administration Hydromorphone HCl 0.5 mg 04/12/19 09:44 04/13/19 06:51 Dilaudid IVP 0.5 mg Q8HR PRN Administration Pain Magnesium Sulfate/Dextrose 1 100 mls @ 100 mls/hr 04/13/19 06:30 04/13/19 06:48 gm/ IV Solution IVPB 04/13/19 08:29 100 mls/hr Q1H YARON Administration Sodium Chloride 1,000 mls @ 150 mls/hr 04/13/19 07:30 Saline 0.9% IV .[id number] YARON Insulin Aspart 6 unit 04/12/19 12:30 04/13/19 06:51 Novolog SQ 6 unit AC-TID YARON Administration Insulin Detemir 20 unit 04/12/19 21:00 04/12/19 20:43 Levemir SQ 20 unit HS YARON Administration Metoclopramide HCl 10 mg 04/11/19 23:07 04/12/19 22:21 Reglan IVP 10 mg Q6H PRN Administration Vomiting Miscellaneous Information 1 each 04/13/19 06:17 Magnesium Per Protocol MISCELLANE DAILY PRN Per Protocol Protocol Ondansetron HCl 4 mg 04/12/19 09:28 Zofran Odt PO Q8HR PRN Nausea Pantoprazole Sodium 40 mg 04/13/19 07:30 04/13/19 06:49 Protonix PO 40 mg AC-[id number] YARON Administration Intake and Output 04/12/19 04/13/19 04/13/19 22:59 06:59 14:59 Intake Total 200 240 Balance 200 240 Intake: Oral 200 240 Other: Voiding Method Toilet Toilet # Voids 1 2 # Bowel Movements 1 Weight 96.8 kg 04/11/19 19:30 04/12/19 23:58 EKG Interpretations (text) EKG shows a normal sinus rhythm with no acute changes. Assessment and Plan Plan: Assessment and plan #1 chest pain with atypical features for acute coronary syndrome, troponins are negative 3. EKG shows a normal sinus rhythm with no acute changes. Patient underwent a cardiac catheterization last month which revealed normal coronary arteries. #2 diabetes 3 hypertension #4 hyperlipidemia #5 chronic pancreatitis #6 chronic nicotine dependence #7 developmentally delayed #8 GERD #9 hypomagnesemia, replaced Plan Patient had an echo performed last month which revealed a normal left vent ricular systolic function, cardiac catheterization performed at that time also revealed normal coronary arteries. The patient's presentation does not appear to be cardiac in nature. We will resume the patient's Lipitor which she takes at home, discontinue her aspirin. Initiate a small dose BRANDIE inhibitor. On review of recent hospitalizations, patient had a KUB of the abdomen performed on April 08 and again on April 10 which did not reveal any significant findings. Further recommendations to follow. DNP note has been reviewed, I agree with a documented findings and plan of care. Patient was seen and examined.
[2019-04-13 08:21] LABS: African American GFR (CKD) >90 (>60 ml/min/1.73 sqM); Anion Gap 10 mmol/L; Blood Urea Nitrogen 16 mg/dL (7-17); Calcium 9.3 mg/dL (8.4-10.2); Carbon Dioxide 21 mmol/L (22-30); Chloride 108 mmol/L (98-107); Glucose 128 mg/dL (74-99); Non-African American GFR(CKD) >90 (>60 ml/min/1.73 sqM); Sodium 139 mmol/L (137-145)
[2019-04-13 08:29] LABS: Potassium 4.3 mmol/L (3.5-5.1)
[2019-04-13 08:32] LABS: Anisocytosis Slight; Basophils % (A) 1 %; Eosinophils # (A) 0.2 k/uL (0-0.7); Eosinophils % (A) 2 %; HGB 12.3 gm/dL (11.4-16.0); Hypochromasia Slight; Lymphocytes # (A) 2.1 k/uL (1.0-4.8); Lymphocytes % (A) 27 %; MCH 26.3 pg (25.0-35.0); MCHC 32.4 g/dL (31.0-37.0); MCV 81.2 fL (80.0-100.0); Mean Platelet Volume 8.6; Microcytosis Slight; Monocytes # (A) 0.3 k/uL (0-1.0); Monocytes % (A) 4 %; Neutrophils % (A) 64 %; Platelet Count 423 k/uL (150-450); RBC 4.68 m/uL (3.80-5.40); RDW 17.1 % (11.5-15.5); WBC 7.9 k/uL (3.8-10.6)
[2019-04-13] MEDS ORDERED: FENOFIBRATE 160 MG TAB PO SCH (09:00)
[2019-04-13] MEDS: ASPIRIN 325 MG TAB PO SCH (09:08)
[2019-04-13] MEDS: SODIUM CHLORIDE 0.9% 1,000 ML IV SCH ×3 (09:09→21:49)
[2019-04-13] MEDS: FERROUS SULFATE 325 MG TAB PO SCH ×2 (09:09→21:49)
[2019-04-13 11:53] LABS: Glucose,Whole Blood 130 mg/dL (75-99)
--- NOTE | 2019-04-13 13:51 | PN ---
PROGRESS NOTE CHIEF COMPLAINT: Abdominal pain, bradycardia and hypomagnesemia. HISTORY OF PRESENT ILLNESS: This lady is still having epigastric pain. During the night, she also dropped her pulse into the 30s. Magnesium was low and this is being replaced. She is still complaining of some chest discomfort with shortness of breath. She has had no vomiting, diarrhea, melena, hematochezia, fever and chills, etc. PHYSICAL EXAMINATION: Chest is clear and the cardiac exam demonstrates sinus rhythm with no murmurs or extra sounds. 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 IMPRESSION: 1. Pancreatitis. 2. Diabetes. 3. Episodes of bradycardia. 4. Hypomagnesemia. PLAN: 1. Echocardiogram. 2. Consult with Cardiology. 3. Replace magnesium. MMODL / IJN: [id number] /
[2019-04-13 16:51] LABS: Glucose,Whole Blood 118 mg/dL (75-99)
[2019-04-13 20:03] LABS: Glucose,Whole Blood 226 mg/dL (75-99)
--- NOTE | 2019-04-13 21:35 | CONS ---
CONSULTATION DATE OF SERVICE: 04/13/2019 REQUESTING PHYSICIAN: Dr. Cerda. REASON FOR CONSULTATION: Acute pancreatitis. HISTORY OF PRESENT ILLNESS: The patient is a 48-year-old pleasant white female with history of diabetes mellitus, hypertension, hyperlipidemia, hypertriglyceridemia, came into the emergency room complaining of chest pain and epigastric pain for the last 2-3 days duration. She was noted to have elevated lipase consistent with acute pancreatitis. The patient states that she was diagnosed with hypertriglyceridemia with a triglyceride level of 957 about 3 weeks ago. She was started on Lipitor by Dr. Cerda about 2 weeks ago. She had an episode of pancreatitis in March of 2019 at which time she was in the hospital for 3 days and discharged home. At this time she has been having these symptoms for the last 2 days. This morning she still has epigastric discomfort. No further episodes of nausea, vomiting. No fever, chills, night sweats. PAST MEDICAL HISTORY: Significant for the acute recurrent pancreatitis, hypertriglyceridemia, hypertension, diabetes mellitus, gastroesophageal reflux disease. MEDICATIONS: At home include Lipitor and Nexium. ALLERGIES: No known drug allergies. SOCIAL HISTORY: Chronic smoker but no alcohol use. FAMILY HISTORY: Mother is healthy and father is also healthy. REVIEW OF SYSTEMS: CARDIOPULMONARY: No chest pain, shortness of breath. GENITOURINARY: No dysuria or hematuria. MUSCULOSKELETAL: Unremarkable. SKIN: Unremarkable. ENDOCRINE: Unremarkable. PSYCHIATRY: Unremarkable. NEUROLOGY: Unremarkable. ENT/VISION: Unremarkable. CONSTITUTIONAL: No recent weight loss. No fever, chills, night sweats. PHYSICAL EXAMINATION: She appears comfortable, no apparent distress. VITAL SIGNS: Stable. Blood pressure is 147/71, pulse 46, temperature 97. HEENT examination unremarkable. Conjunctivae pink. Sclerae anicteric. Oral cavity, no lesions. No JVD or lymph node enlargement. CHEST: Clear to auscultation. HEART: Regular rate and rhythm. ABDOMEN: Soft with mild tenderness in the epigastric area. Bowel sounds are positive. EXTREMITIES: No pedal edema. SKIN: No rashes. NEUROLOGIC: Alert and oriented x3. No focal deficits. LABS: Triglyceride level is 426, lipase was 891. Today it is 463. ALT, AST, T-bilirubin and alkaline phosphatase are within normal limits. WBC is 7.9, hemoglobin 12.3, platelets are normal. IMPRESSION: 1. Acute recurrent pancreatitis secondary to hypertriglyceridemia. The patient was just hospitalized 2 weeks ago for similar reasons. Fasting triglycerides at that time were in the 900 range. She was started on Lipitor 2 weeks ago. Her triglycerides are down to 486 currently. 2. Hypertriglyceridemia. RECOMMENDATIONS: 1. Continue with clear liquid diet. 2. Repeat labs in the morning. 3. Will advance diet as tolerated. 4. Continue with Lipitor for hypertriglyceridemia. 5. We will follow with you closely. Thank you for this consultation. MMJOHANL / IJN: [id number] /
[2019-04-13] MEDS: INSULIN DETEMIR (LEVEMIR) 100 UNIT/ML SYR SQ SCH (21:49)
[2019-04-14] MEDS: SODIUM CHLORIDE 0.9% 1,000 ML IV SCH ×3 (07:00→15:00)
[2019-04-14 07:08] LABS: Glucose,Whole Blood 136 mg/dL (75-99)
[2019-04-14] MEDS: HYDROmorphone 0.5 MG/0.5 ML SYRINGE IVP PRN ×3 (07:10→22:48)
[2019-04-14] MEDS: PANTOPRAZOLE 40 MG TABLET PO SCH (07:10)
[2019-04-14] MEDS: INSULIN ASPART (NovoLOG) 100 UNIT/ML VIAL SQ SCH ×3 (07:10→17:12)
[2019-04-14] MEDS: ASPIRIN 325 MG TAB PO SCH (10:10)
[2019-04-14] MEDS: FENOFIBRATE 160 MG TAB PO SCH (10:14)
[2019-04-14] MEDS: LISINOPRIL 5 MG TAB PO SCH (10:14)
[2019-04-14] MEDS: FERROUS SULFATE 325 MG TAB PO SCH ×2 (10:14→21:22)
[2019-04-14] MEDS: ATORVASTATIN 80 MG TAB PO SCH (10:14)
[2019-04-14 12:04] LABS: Glucose,Whole Blood 116 mg/dL (75-99)
[2019-04-14 17:01] LABS: Glucose,Whole Blood 184 mg/dL (75-99)
--- NOTE | 2019-04-14 18:12 | PN ---
PROGRESS NOTE DATE OF DICTATION: 04/14/2019 The patient is a 48-year-old pleasant white female with history of acute recurrent pancreatitis secondary to hypertriglyceridemia, admitted to the hospital with chest pain and epigastric pain for the last 3 days' duration. She is feeling better today. She is on a clear liquid diet, tolerating well. She does have some epigastric discomfort. No further episodes of nausea, vomiting. She denies any fever, chills or night sweats. PHYSICAL EXAMINATION: She appears comfortable. No apparent distress. Vital signs are stable. Blood pressure is 146/66, pulse rate 53, temperature 97.7. HEENT examination unremarkable. Conjunctivae pink. Sclerae anicteric. Oral cavity no lesions. NECK: No JVD or lymph node enlargement. CHEST: Clear to auscultation. HEART: Regular rate and rhythm. ABDOMEN: Soft. Mild tenderness in the epigastric area. Bowel sounds are positive. No organomegaly. EXTREMITIES: No pedal edema. SKIN: No rashes. NEUROLOGIC: She is alert and oriented x3. No focal deficits. LABS: Lipase was 463 yesterday. Today no labs were done. IMPRESSION: 1. Acute recurrent pancreatitis secondary to hypertriglyceridemia. Symptoms are gradually improving. Lipase is improving. Remains on Lipitor for high triglycerides. Last triglyceride level was 428. 2. History of diabetes mellitus. 3. History of hypertension. 4. Gastroesophageal reflux disease. RECOMMENDATIONS: 1. Advance diet as tolerated. 2. Repeat labs in the morning. 3. Continue with Lipitor for now and recommend aggressive control of high triglycerides. 4. If labs are improving tomorrow, she can be discharged home with an outpatient followup in 2 weeks. Thank you for this consultation. MMODL / IJN: [id number] /
[2019-04-14 20:47] LABS: Glucose,Whole Blood 135 mg/dL (75-99)
--- NOTE | 2019-04-14 21:16 | PN ---
PROGRESS NOTE CHIEF COMPLAINT: Pancreatitis. HISTORY OF PRESENT ILLNESS: This lady is doing a little bit better. Pain seems to be improving slightly. She is being followed by Gastroenterology. It is felt that hypertriglyceridemia is the etiology of her pancreatitis. PHYSICAL EXAMINATION: She is oven tender bagels over the epigastrium. Chest is clear. Cardiac exam is normal. IMPRESSION: 1. Pancreatitis. 2. Diabetes. 3. Obesity. 4. Bradycardia. PLAN: Continue to progress activity and wait for any further recommendations from Cardiology. MMODL / IJN: [id number] /
[2019-04-14] MEDS: INSULIN DETEMIR (LEVEMIR) 100 UNIT/ML SYR SQ SCH (21:22)
[2019-04-15] MEDS: SODIUM CHLORIDE 0.9% 1,000 ML IV SCH ×3 (03:17→11:46)
[2019-04-15 06:57] LABS: Glucose,Whole Blood 119 mg/dL (75-99)
[2019-04-15] MEDS: PANTOPRAZOLE 40 MG TABLET PO SCH (07:01)
[2019-04-15] MEDS: INSULIN ASPART (NovoLOG) 100 UNIT/ML VIAL SQ SCH ×2 (07:01→11:47)
[2019-04-15] MEDS: HYDROmorphone 0.5 MG/0.5 ML SYRINGE IVP PRN (07:56)
[2019-04-15] MEDS: FENOFIBRATE 160 MG TAB PO SCH (07:58)
[2019-04-15] MEDS: FERROUS SULFATE 325 MG TAB PO SCH (07:58)
[2019-04-15] MEDS: LISINOPRIL 5 MG TAB PO SCH (07:58)
[2019-04-15] MEDS: ATORVASTATIN 80 MG TAB PO SCH (07:58)
[2019-04-15 08:03] VITALS: BP 134/69; PULSE 57; RESP 18; TEMP 98.2
[2019-04-15] MEDS ORDERED: LISINOPRIL 5 MG TAB PO SCH (09:00)
[2019-04-15 11:47] LABS: Glucose,Whole Blood 179 mg/dL (75-99)
--- NOTE | 2019-04-16 09:05 | DS ---
DISCHARGE SUMMARY CHIEF COMPLAINT: Pancreatitis. HISTORY OF PRESENT ILLNESS AND PHYSICAL EXAM: Details of this lady's history and physical can be found in the initial workup. LABORATORY STUDIES: While she was in a hospital she had laboratory studies, details of which can be found in the laboratory section of her chart. COURSE IN HOSPITAL: After admission, she was placed on bedrest, started on intravenous fluids and analgesics once again. She was seen by Gastroenterology. Lipase has started to come down. She had no further vomiting, abdominal pain, chills, etc. She was doing well and it was felt she could go home on 04/15 and she will go home on her usual activity, diet, and her fenofibrate. She will be seen in the office in several days. FINAL DIAGNOSES: 1. Chronic relapsing pancreatitis, positive probably due to hypertriglyceridemia. 2. Insulin-dependent diabetes mellitus. 3. Bradycardia. OPERATIONS: None. CONSULTATIONS: Gastroenterology and Cardiology. She is improved. MMODL / EVELINN: [id number] /
== END 2019-04-15 12:15 | disposition home or self-care (01) | DRG 440 ==
LOC: EC 19:18 → 3SCARD 23:00 → OBSVTOIN 04-13 09:11
PROVIDERS: ADMIT Family Medicine; ATTEND Family Medicine
DX: K85.90 Acute pancreatitis without necrosis or infection, unspecified (principal); E11.9 Type 2 diabetes mellitus without complications; E66.9 Obesity, unspecified; E78.1 Pure hyperglyceridemia; E78.5 Hyperlipidemia, unspecified; E83.42 Hypomagnesemia; E86.0 Dehydration; F17.210 Nicotine dependence, cigarettes, uncomplicated; I10 Essential (primary) hypertension; K21.9 Gastro-esophageal reflux disease without esophagitis; G89.29 Other chronic pain; M54.5 Low back pain; R00.1 Bradycardia, unspecified; K86.1 Other chronic pancreatitis; R07.89 Other chest pain; R62.50 Unspecified lack of expected normal physiological development in childhood; Z79.4 Long term (current) use of insulin; Z79.899 Other long term (current) drug therapy
CPT/HCPCS: 36415; 71046; 74018; 80048; 80053; 80061; 81001; 82150; 83690; 83735; 83880; 84132; 84478; 84484; 85025; 85610; 85730; 87502; 93005; 96361; 96374; 99284; 99285

== ENCOUNTER 2019-04-15 19:07 | Emergency (ER) | payer MEDICARE, OTHER ==
[2019-04-15 19:22] VITALS: RESP 18
--- NOTE | 2019-04-15 19:25 | ED ---
Chest Pain HPI - General Chief Complaint: Chest Pain Stated Complaint: Chest Pain Time Seen by Provider: 04/15/19 19:23 Source: patient, EMS, RN notes reviewed, old records reviewed Mode of arrival: EMS Limitations: no limitations - History of Present Illness Initial Comments: This is a 48-year-old female here for evaluation patient since today for eval uation regards to pain abdominal pain chest pain. Recent hospital admission for same mild pancreatitis patient has no nausea vomiting currently will take medications as prescribed recently taken off Motrin for pain control. Again at this time no fevers. No diarrhea. sHe states symptoms have been just persistent since discharge MD Complaint: chest pain, other (Abdominal pain) -: week(s) Onset: during rest Pain Location: epigastric Severity: mild Severity scale (1-10): 2 Quality: aching Consistency: intermittent Improves With: nothing Worsens With: nothing Context: recent illness (Pancreatitis mild) Anginal Symptoms: nausea Treatments Prior to Arrival: none - Related Data Home Medications Medication Instructions Recorded Confirmed Esomeprazole Magnesium [NexIUM] 20 mg PO DAILY 01/15/19 04/11/19 Insulin Detemir (Levemir) [Levemir] 20 unit SQ HS 04/11/19 04/11/19 Previous Rx's Medication Instructions Recorded Ferrous Sulfate [Iron (65 MG 325 mg PO BID #60 tab 02/09/19 Elemental)] INSULIN ASPART (NovoLOG) [NovoLOG 6 unit SQ AC-TID #1 vial 02/10/19 (formulary)] Fenofibrate [Lofibra] 160 mg PO DAILY #30 tab 03/23/19 Ondansetron Odt [Zofran ODT] 4 mg PO Q8HR PRN #12 tab 04/10/19 Pantoprazole [Protonix] 40 mg PO DAILY #30 tablet. 04/10/19 Atorvastatin [Lipitor] 80 mg PO DAILY #30 tab 04/15/19 Lisinopril [Zestril] 5 mg PO DAILY #30 tab 04/15/19 Allergies Allergy/AdvReac Type Severity Reaction Status Date / Time No Known Allergies Allergy Verified 04/11/19 23:29 Review of Systems ROS Statement: Those systems with pertinent positive or pertinent negative responses have been documented in the HPI. ROS Other: All systems not noted in ROS Statement are negative. EKG Findings - EKG Comments: EKG Findings:: EKG shows sinus rhythm rate of 64, NV 148 QRS 84 QTC 422 Past Medical History Past Medical History: Diabetes Mellitus, GERD/Reflux, Hyperlipidemia, Syncope Additional Past Medical History / Comment(s): Pt recently admitted to [facility] on 01/11/19 with UTI/pancreatitis. Other hx: Previous pancreatitis 10/2018, NIDDM type II-pt states she is waiting to get a glucometer, developmental delay, UTI, chronic low back pain, bulging discs, dental abscesses in past, pt states she "blacked out" - last Saturday, Jan 30, 2019. History of Any Multi-Drug Resistant Organisms: None Reported Past Surgical History: Tubal Ligation Additional Past Surgical History / Comment(s): Age 7 had VSD repair Past Anesthesia/Blood Transfusion Reactions: No Reported Reaction Past Psychological History: No Psychological Hx Reported Smoking Status: Current every day smoker Past Alcohol Use History: None Reported Past Drug Use History: None Reported - Past Family History Mother Family Medical History: No Reported History Additional Family Medical History / Comment(s): Mother is healthy Father Family Medical History: No Reported History Additional Family Medical History / Comment(s): Father is healthy General Exam General appearance: alert, in no apparent distress Head exam: Present: atraumatic, normocephalic, normal inspection Eye exam: Present: normal appearance, PERRL, EOMI. Absent: scleral icterus, conjunctival injection, periorbital swelling ENT exam: Present: normal exam, mucous membranes moist Neck exam: Present: normal inspection. Absent: tenderness, meningismus, lymphadenopathy Respiratory exam: Present: normal lung sounds bilaterally. Absent: respiratory distress, wheezes, rales, rhonchi, stridor Cardiovascular Exam: Present: regular rate, normal rhythm, normal heart sounds. Absent: systolic murmur, diastolic murmur, rubs, gallop, clicks GI/Abdominal exam: Present: soft, normal bowel sounds. Absent: distended, tenderness, guarding, rebound, rigid Extremities exam: Present: normal inspection, full ROM, normal capillary refill. Absent: tenderness, pedal edema, joint swelling, calf tenderness Back exam: Present: normal inspection Neurological exam: Present: alert, oriented X3, CN II-XII intact Psychiatric exam: Present: normal affect, normal mood Skin exam: Present: warm, dry, intact, normal color. Absent: rash Course Vital Signs 01/08/20 19:19 Temperature 98 F Pulse Rate 72 Respiratory 18 Rate Blood Pressure 179/75 O2 Sat by Pulse 95 Oximetry - Reevaluation(s) Reevaluation #1: 04/15/19 21:16 Medical record is reviewed Reevaluation #2: 04/15/19 21:16 Patient has adequate pain control normal heart catheterization last month Chest Pain MDM - MDM 48 female here with acute on chronic abdominal pain. Patient can be discharged home Disposition Clinical Impression: Atypical chest pain Disposition: HOME SELF-CARE Condition: Good Instructions (If sedation given, give patient instructions): Chest Pain (ED) Is patient prescribed a controlled substance at d/c from ED?: No Referrals: Guillermo Cerda MD [Primary Care Provider] - 1-2 days
[2019-04-15] MEDS ORDERED: DICYCLOMINE 10 MG/ML 2 ML AMP IM STA (20:13)
[2019-04-15] MEDS ORDERED: ACET/COD 300 MG/30 MG STARTER PACK 6 TAB BTL PO STA (20:13)
[2019-04-15] MEDS ORDERED: Acetaminophen-Codeine 300-30mg TAB PO STA (20:13)
[2019-04-15] MEDS ORDERED: ONDANSETRON ODT 4 MG TAB PO STA (20:13)
--- NOTE | 2019-04-15 20:45 | XR ---
EXAMINATION TYPE: XR abdomen 1V DATE OF EXAM: 04/15/2019 COMPARISON: 04/10/2019 HISTORY: Abdominal pain TECHNIQUE: 2 views upright FINDINGS: There is no sign of intestinal obstruction or pneumoperitoneum. Fecal pattern is normal. Th ere are clips from tubal ligation. There are no pathologic calcifications over the kidneys. Lung base s are clear. IMPRESSION: Nonacute abdomen. No change.
[2019-04-15 21:26] VITALS: BP 141/62; PULSE 62; TEMP 98.1
== END 2019-04-15 21:41 | disposition home or self-care (01) ==
LOC: EC 19:07
DX: R07.89 Other chest pain (principal); G89.29 Other chronic pain; R10.13 Epigastric pain; R11.0 Nausea; E11.9 Type 2 diabetes mellitus without complications; K21.9 Gastro-esophageal reflux disease without esophagitis; F17.200 Nicotine dependence, unspecified, uncomplicated; Z79.4 Long term (current) use of insulin; Z79.899 Other long term (current) drug therapy; Z87.19 Personal history of other diseases of the digestive system; Z87.74 Personal history of (corrected) congenital malformations of heart and circulatory system
CPT/HCPCS: 93005; 74018; 99285; 96372; J0500

== ENCOUNTER 2019-04-18 15:25 | Emergency (ER) | payer MEDICARE, OTHER ==
[2019-04-18] MEDS ORDERED: KETOROLAC 30 MG/ML 1 ML VIAL IVP STA (16:06)
[2019-04-18] MEDS ORDERED: PANTOPRAZOLE 40 MG/10 ML VIAL IVP STA (16:06)
[2019-04-18] MEDS ORDERED: SODIUM CHLORIDE 0.9% 1,000 ML IV STA ×2 (16:06)
[2019-04-18] MEDS ORDERED: MORPHINE SULFATE 2 MG/ML SYRINGE IVP STA (16:06)
[2019-04-18 16:37] LABS: Anisocytosis Slight; Basophils # (A) 0.1 k/uL (0-0.2); Basophils % (A) 1 %; Eosinophils # (A) 0.3 k/uL (0-0.7); Eosinophils % (A) 2 %; HGB 12.1 gm/dL (11.4-16.0); Hypochromasia Slight; Lymphocytes # (A) 2.2 k/uL (1.0-4.8); Lymphocytes % (A) 16 %; MCH 25.9 pg (25.0-35.0); MCV 80.9 fL (80.0-100.0); Mean Platelet Volume 7.2; Microcytosis Slight; Monocytes # (A) 0.4 k/uL (0-1.0); Monocytes % (A) 3 %; Neutrophils # (A) 10.2 k/uL (1.3-7.7); Neutrophils % (A) 76 %; Platelet Count 623 k/uL (150-450); RBC 4.69 m/uL (3.80-5.40); RDW 17.1 % (11.5-15.5); WBC 13.4 k/uL (3.8-10.6)
--- NOTE | 2019-04-18 16:42 | ED ---
Recheck HPI - General Chief Complaint: Recheck/Abnormal Lab/Rx Stated Complaint: Abd.pain Time Seen by Provider: 04/18/19 15:58 Source: patient, EMS, RN notes reviewed, old records reviewed Mode of arrival: EMS Limitations: no limitations - History of Present Illness Initial Comments: 48-year-old female presents emergency department today for evaluation for upper abdominal pain and some back pain. She also states she's had some near syncopal episodes. Patient reports she saw her primary care doctor yesterday had a near- syncopal episode in their office, and was scheduled for some further testing next week. She did have some blood work at that time. Patient states that she is here for reevaluation he continues to have some abdominal pain. - Related Data Home Medications Medication Instructions Recorded Confirmed Esomeprazole Magnesium [NexIUM] 20 mg PO DAILY 01/15/19 04/11/19 Insulin Detemir (Levemir) [Levemir] 20 unit SQ HS 04/11/19 04/11/19 Previous Rx's Medication Instructions Recorded Ferrous Sulfate [Iron (65 MG 325 mg PO BID #60 tab 02/09/19 Elemental)] INSULIN ASPART (NovoLOG) [NovoLOG 6 unit SQ AC-TID #1 vial 02/10/19 (formulary)] Fenofibrate [Lofibra] 160 mg PO DAILY #30 tab 03/23/19 Ondansetron Odt [Zofran ODT] 4 mg PO Q8HR PRN #12 tab 04/10/19 Pantoprazole [Protonix] 40 mg PO DAILY #30 tablet. 04/10/19 Atorvastatin [Lipitor] 80 mg PO DAILY #30 tab 04/15/19 Lisinopril [Zestril] 5 mg PO DAILY #30 tab 04/15/19 Pantoprazole [Protonix] 40 mg PO DAILY #30 tablet. 04/18/19 Allergies Allergy/AdvReac Type Severity Reaction Status Date / Time No Known Allergies Allergy Verified 04/18/19 15:31 Review of Systems ROS Statement: Those systems with pertinent positive or pertinent negative responses have been documented in the HPI. ROS Other: All systems not noted in ROS Statement are negative. Past Medical History Past Medical History: Diabetes Mellitus, GERD/Reflux, Hyperlipidemia, Syncope Additional Past Medical History / Comment(s): Pt recently admitted to [facility] on 01/11/19 with UTI/pancreatitis. Other hx: Previous pancreatitis 10/2018, NIDDM type II-pt states she is waiting to get a glucometer, developmental delay, UTI, chronic low back pain, bulging discs, dental abscesses in past, pt states she "blacked out" - last Saturday, Jan 30, 2019. History of Any Multi-Drug Resistant Organisms: None Reported Past Surgical History: Tubal Ligation Additional Past Surgical History / Comment(s): Age 7 had VSD repair Past Anesthesia/Blood Transfusion Reactions: No Reported Reaction Past Psychological History: No Psychological Hx Reported Smoking Status: Current every day smoker Past Alcohol Use History: None Reported Past Drug Use History: None Reported - Past Family History Mother Family Medical History: No Reported History Additional Family Medical History / Comment(s): Mother is healthy Father Family Medical History: No Reported History Additional Family Medical History / Comment(s): Father is healthy General Exam - General Exam Comments Initial Comments: 48 rolled female. Alert and oriented 3. No distress. Limitations: no limitations General appearance: alert, in no apparent distress Head exam: Present: atraumatic, normocephalic, normal inspection Eye exam: Present: normal appearance, PERRL, EOMI. Absent: scleral icterus, conjunctival injection, periorbital swelling ENT exam: Present: normal exam, mucous membranes moist Neck exam: Present: normal inspection. Absent: tenderness, meningismus, lymphadenopathy Respiratory exam: Present: normal lung sounds bilaterally. Absent: respiratory distress, wheezes, rales, rhonchi, stridor Cardiovascular Exam: Present: regular rate, normal rhythm, normal heart sounds. Absent: systolic murmur, diastolic murmur, rubs, gallop, clicks GI/Abdominal exam: Present: soft, normal bowel sounds. Absent: distended, tenderness, guarding, rebound, rigid Extremities exam: Present: normal inspection, full ROM, normal capillary refill. Absent: tenderness, pedal edema, joint swelling, calf tenderness Back exam: Present: normal inspection Neurological exam: Present: alert, oriented X3, CN II-XII intact Psychiatric exam: Present: normal affect, normal mood Skin exam: Present: warm, dry, intact, normal color. Absent: rash Course Vital Signs 04/18/19 04/18/19 15:28 18:00 Temperature 99.1 F Pulse Rate 62 Respiratory 16 16 Rate Blood Pressure 150/79 O2 Sat by Pulse 94 L Oximetry Medical Decision Making - Medical Decision Making Patient's a 48-year-old female who presents emergency department today for evaluation for concern for abdominal pain, some episodes of dizziness and lightheadedness. The same EKG was reviewed and negative for any acute changes. Patient's labs are reviewed and unremarble. Patient's liver enzymes fingers enzymes are within normal limits. KUB and are negative for any acute process. I discussed this with Dr. Ratliff, this time with patient's normal lab work Patient advised to discharge home and follow-up with her primary care doctor next week. She does have a scheduled appointment. Discussed using an antacid medication, and bland diet. Patient is agreeable to treatment plan will comply. Return parameters were discussed. - Lab Data Result diagrams: 04/18/19 16:22 04/18/19 16:22 Lab Results 04/18/19 04/18/19 04/18/19 Range/Units 16:22 16:22 16:22 WBC 13.4 H (3.8-10.6) k/uL RBC 4.69 (3.80-5.40) m/uL Hgb 12.1 (11.4-16.0) gm/dL Hct 38.0 (34.0-46.0) % MCV 80.9 (80.0-100.0) fL MCH 25.9 (25.0-35.0) pg MCHC 32.0 (31.0-37.0) g/dL RDW 17.1 H (11.5-15.5) % Plt Count 623 H (150-450) k/uL Neutrophils % 76 % Lymphocytes % 16 % Monocytes % 3 % Eosinophils % 2 % Basophils % 1 % Neutrophils # 10.2 H (1.3-7.7) k/uL Lymphocytes # 2.2 (1.0-4.8) k/uL Monocytes # 0.4 (0-1.0) k/uL Eosinophils # 0.3 (0-0.7) k/uL Basophils # 0.1 (0-0.2) k/uL Hypochromasia Slight Anisocytosis Slight Microcytosis Slight PT (9.0-12.0) sec INR (<1.2) APTT (22.0-30.0) sec Sodium 137 (137-145) mmol/L Potassium 5.1 (3.5-5.1) mmol/L Chloride 103 (98-107) mmol/L Carbon Dioxide 25 (22-30) mmol/L Anion Gap 9 mmol/L BUN 15 (7-17) mg/dL Creatinine 0.75 (0.52-1.04) mg/dL Est GFR (CKD-EPI)AfAm >90 (>60 ml/min/1.73 sqM) Est GFR (CKD-EPI)NonAf >90 (>60 ml/min/1.73 sqM) Glucose 115 H (74-99) mg/dL Plasma Lactic Acid Travon 1.2 (0.7-2.0) mmol/L Calcium 9.2 (8.4-10.2) mg/dL Total Bilirubin 0.9 (0.2-1.3) mg/dL AST 62 H (14-36) U/L ALT 37 H (4-34) U/L Alkaline Phosphatase 99 (38-126) U/L Troponin I (0.000-0.034) ng/mL Total Protein 7.7 (6.3-8.2) g/dL Albumin 4.3 (3.5-5.0) g/dL Amylase 47 (30-110) U/L Lipase 207 (23-300) U/L Urine Color Urine Appearance (Clear) Urine pH (5.0-8.0) Ur Specific [place] (1.001-1.035) Urine Protein (Negative) Urine Glucose (UA) (Negative) Urine Ketones (Negative) Urine Blood (Negative) Urine Nitrite (Negative) Urine Bilirubin (Negative) Urine Urobilinogen (<2.0) mg/dL Ur Leukocyte Esterase (Negative) Urine WBC (0-5) /hpf Ur Squamous Epith Cells (0-4) /hpf Urine Mucus (None) /hpf 04/18/19 04/18/19 04/18/19 Range/Units 16:22 16:22 16:22 WBC (3.8-10.6) k/uL RBC (3.80-5.40) m/uL Hgb (11.4-16.0) gm/dL Hct (34.0-46.0) % MCV (80.0-100.0) fL MCH (25.0-35.0) pg MCHC (31.0-37.0) g/dL RDW (11.5-15.5) % Plt Count (150-450) k/uL Neutrophils % % Lymphocytes % % Monocytes % % Eosinophils % % Basophils % % Neutrophils # (1.3-7.7) k/uL Lymphocytes # (1.0-4.8) k/uL Monocytes # (0-1.0) k/uL Eosinophils # (0-0.7) k/uL Basophils # (0-0.2) k/uL Hypochromasia Anisocytosis Microcytosis PT 9.8 (9.0-12.0) sec INR 0.9 (<1.2) APTT 18.2 L (22.0-30.0) sec Sodium (137-145) mmol/L Potassium (3.5-5.1) mmol/L Chloride (98-107) mmol/L Carbon Dioxide (22-30) mmol/L Anion Gap mmol/L BUN (7-17) mg/dL Creatinine (0.52-1.04) mg/dL Est GFR (CKD-EPI)AfAm (>60 ml/min/1.73 sqM) Est GFR (CKD-EPI)NonAf (>60 ml/min/1.73 sqM) Glucose (74-99) mg/dL Plasma Lactic Acid [place] (0.7-2.0) mmol/L Calcium (8.4-10.2) mg/dL Total Bilirubin (0.2-1.3) mg/dL AST (14-36) U/L ALT (4-34) U/L Alkaline Phosphatase (38-126) U/L Troponin I <0.012 (0.000-0.034) ng/mL Total Protein (6.3-8.2) g/dL Albumin (3.5-5.0) g/dL Amylase (30-110) U/L Lipase (23-300) U/L Urine Color Yellow Urine Appearance Clear (Clear) Urine pH 5.5 (5.0-8.0) Ur Specific [place] 1.024 (1.001-1.035) Urine Protein 1+ H (Negative) Urine Glucose (UA) Negative (Negative) Urine Ketones Negative (Negative) Urine Blood Negative (Negative) Urine Nitrite Negative (Negative) Urine Bilirubin Negative (Negative) Urine Urobilinogen <2.0 (<2.0) mg/dL Ur Leukocyte Esterase Negative (Negative) Urine WBC 1 (0-5) /hpf Ur Squamous Epith Cells 2 (0-4) /hpf Urine Mucus Rare H (None) /hpf 04/18/19 17:06 EKG shows sinus bradycardia, left ventricular hypertrophy with repolarization abnormality. Abnormal EKG. Ventricular rate of 57 bpm. Pulse 152 ms. QRS ration is 82 ms. QT QTc is 444/432 ms. - Radiology Data Radiology results: report reviewed Chest x-ray shows minimal subsegmental atelectasis left mid lung compared old exam. Normal heart. AB she is nonacute abdomen. Disposition Clinical Impression: Dizziness, Chronic abdominal pain Disposition: HOME SELF-CARE Condition: Good Instructions (If sedation given, give patient instructions): Abdominal Pain (ED) Additional Instructions: Please use medication as discussed. Drink plenty of fluids and frequent snacks. Please follow up with family doctor if symptoms have not improved over the next two days. Please return to the emergency room if your symptoms increase or worsen or for any other concerns. Prescriptions: Pantoprazole [Protonix] 40 mg PO DAILY #30 tablet.dr Is patient prescribed a controlled substance at d/c from ED?: No Referrals: Guillermo Cerda MD [Primary Care Provider] - 1-2 days Time of Disposition: 18:41
[2019-04-18 16:50] LABS: ALT 37 U/L (4-34); AST 62 U/L (14-36); African American GFR (CKD) >90 (>60 ml/min/1.73 sqM); Albumin 4.3 g/dL (3.5-5.0); Alkaline Phosphatase 99 U/L (38-126); Amylase 47 U/L (30-110); Anion Gap 9 mmol/L; Blood Urea Nitrogen 15 mg/dL (7-17); Calcium 9.2 mg/dL (8.4-10.2); Carbon Dioxide 25 mmol/L (22-30); Chloride 103 mmol/L (98-107); Glucose 115 mg/dL (74-99); Non-African American GFR(CKD) >90 (>60 ml/min/1.73 sqM); Sodium 137 mmol/L (137-145); Total Bilirubin 0.9 mg/dL (0.2-1.3); Total Protein 7.7 g/dL (6.3-8.2)
[2019-04-18 16:51] LABS: Potassium 5.1 mmol/L (3.5-5.1)
[2019-04-18 16:56] LABS: Appearance,Urine Clear (Clear); Bilirubin,Urine Negative (Negative); Blood,Urine Negative (Negative); Color,Urine Yellow; Glucose,Urine (UA) Negative (Negative); Ketones,Urine Negative (Negative); Leukocyte Esterase,Urine Negative (Negative); Mucus,Urine Rare /hpf; Nitrite,Urine Negative (Negative); PH, Urine 5.5 (5.0-8.0); Protein,Urine 1+ (Negative); Specific Gravity,Urine 1.024 (1.001-1.035); Squamous Epithelial Cell,Urine 2 /hpf (0-4); Urobilinogen,Urine <2.0 mg/dL (<2.0); WBC,Urine 1 /hpf (0-5)
[2019-04-18 16:57] LABS: INR 0.9 (<1.2); Prothrombin Time 9.8 sec (9.0-12.0)
[2019-04-18 17:01] LABS: Partial Thromboplastin Time 18.2 sec (22.0-30.0)
--- NOTE | 2019-04-18 17:18 | XR ---
EXAMINATION TYPE: XR chest 2V DATE OF EXAM: 04/18/2019 COMPARISON: 04/11/2019 HISTORY: Chest pain TECHNIQUE: 2 views FINDINGS: There is some linear density left midlung. The other lung chandler are clear. Heart and media stinum are normal. Costophrenic angles are clear. IMPRESSION: Minimal subsegmental atelectasis in the left midlung increased compared to old exam. Norm al heart.
--- NOTE | 2019-04-18 17:23 | XR ---
EXAMINATION TYPE: XR KUB DATE OF EXAM: 04/18/2019 COMPARISON: 04/15/2019 HISTORY: Abdominal pain TECHNIQUE: 2 views upright FINDINGS: There is no sign of intestinal obstruction or pneumoperitoneum. Fecal pattern is normal. Gwen ng bases are clear. There are clips from tubal ligation. There is no evidence of a mass. Bony structu res are intact. IMPRESSION: Nonacute abdomen.
[2019-04-18 19:20] VITALS: BP 152/81; PULSE 88; RESP 18; TEMP 98.4
== END 2019-04-18 19:15 | disposition home or self-care (01) ==
LOC: EC 15:25
DX: G89.29 Other chronic pain (principal); R10.10 Upper abdominal pain, unspecified; R42 Dizziness and giddiness; M54.9 Dorsalgia, unspecified; R55 Syncope and collapse; E11.9 Type 2 diabetes mellitus without complications; K21.9 Gastro-esophageal reflux disease without esophagitis; F17.200 Nicotine dependence, unspecified, uncomplicated; Z79.4 Long term (current) use of insulin; Z79.899 Other long term (current) drug therapy
CPT/HCPCS: 36415; 93005; 80053; 82150; 83605; 83690; 84484; 85025; 85610; 85730; 81001; 87040; 71046; 74018; 99285; 96374; 96375 ×2; 96361 ×2; J1885; J2270; C9113

== ENCOUNTER 2019-04-19 03:39 | Emergency (ER) | payer MEDICARE, OTHER ==
[2019-04-19 03:45] VITALS: RESP 18
[2019-04-19] MEDS ORDERED: SODIUM CHLORIDE 0.9% 1,000 ML IV ONE (04:21)
[2019-04-19 05:01] LABS: Anisocytosis Slight; Basophils # (A) 0.2 k/uL (0-0.2); Basophils % (A) 2 %; Eosinophils # (A) 0.2 k/uL (0-0.7); Eosinophils % (A) 2 %; HCT 36.4 % (34.0-46.0); HGB 11.8 gm/dL (11.4-16.0); Lymphocytes # (A) 1.9 k/uL (1.0-4.8); Lymphocytes % (A) 22 %; MCH 26.3 pg (25.0-35.0); MCHC 32.4 g/dL (31.0-37.0); MCV 81.1 fL (80.0-100.0); Mean Platelet Volume 6.6; Microcytosis Slight; Monocytes # (A) 0.5 k/uL (0-1.0); Monocytes % (A) 6 %; Neutrophils # (A) 5.7 k/uL (1.3-7.7); Neutrophils % (A) 67 %; Platelet Count 494 k/uL (150-450); RDW 17.5 % (11.5-15.5); WBC 8.6 k/uL (3.8-10.6)
[2019-04-19 05:11] LABS: ALT 28 U/L (4-34); AST 28 U/L (14-36); African American GFR (CKD) >90 (>60 ml/min/1.73 sqM); Albumin 3.9 g/dL (3.5-5.0); Alkaline Phosphatase 95 U/L (38-126); Anion Gap 8 mmol/L; Blood Urea Nitrogen 15 mg/dL (7-17); Calcium 8.7 mg/dL (8.4-10.2); Carbon Dioxide 28 mmol/L (22-30); Chloride 104 mmol/L (98-107); Glucose 123 mg/dL (74-99); Non-African American GFR(CKD) 88 (>60 ml/min/1.73 sqM); Sodium 140 mmol/L (137-145); Total Bilirubin 0.4 mg/dL (0.2-1.3); Total Protein 6.8 g/dL (6.3-8.2)
[2019-04-19] MEDS ORDERED: MECLIZINE 12.5 MG TAB PO STA (05:43)
[2019-04-19 05:44] VITALS: BP 134/65; PULSE 60; TEMP 98.2
--- NOTE | 2019-04-19 06:26 | ED ---
General Adult HPI - General Chief complaint: Weakness Stated complaint: Weakness Time Seen by Provider: 04/19/19 04:08 Source: EMS Mode of arrival: EMS Limitations: no limitations - History of Present Illness Initial comments: Tona is a 48-year-old female with medical history listed below who presents the ER today via ambulance for evaluation of dizziness. She was seen and evaluated yesterday and subsequently discharged home. Patient reports she will home and was asleep she woke up and when she rolled over she felt dizzy so she called 911. Patient denies any headache or vision changes. She reports she feels dizzy when she turns her head left or right she can't identify which side is worse. She has no dizziness at rest. No vision changes. No trouble speaking swallowing no this in the extremities. - Related Data Home Medications Medication Instructions Recorded Confirmed Esomeprazole Magnesium [NexIUM] 20 mg PO DAILY 01/15/19 04/11/19 Insulin Detemir (Levemir) [Levemir] 20 unit SQ HS 04/11/19 04/11/19 Previous Rx's Medication Instructions Recorded Ferrous Sulfate [Iron (65 MG 325 mg PO BID #60 tab 02/09/19 Elemental)] INSULIN ASPART (NovoLOG) [NovoLOG 6 unit SQ AC-TID #1 vial 02/10/19 (formulary)] Fenofibrate [Lofibra] 160 mg PO DAILY #30 tab 03/23/19 Ondansetron Odt [Zofran ODT] 4 mg PO Q8HR PRN #12 tab 04/10/19 Pantoprazole [Protonix] 40 mg PO DAILY #30 tablet. 04/10/19 Atorvastatin [Lipitor] 80 mg PO DAILY #30 tab 04/15/19 Lisinopril [Zestril] 5 mg PO DAILY #30 tab 04/15/19 Pantoprazole [Protonix] 40 mg PO DAILY #30 tablet. 04/18/19 Meclizine [Antivert] 12.5 mg PO Q6H PRN #30 tablet 04/19/19 Allergies Allergy/AdvReac Type Severity Reaction Status Date / Time No Known Allergies Allergy Verified 04/18/19 15:31 Review of Systems ROS Statement: Those systems with pertinent positive or pertinent negative responses have been documented in the HPI. ROS Other: All systems not noted in ROS Statement are negative. Past Medical History Past Medical History: Diabetes Mellitus, GERD/Reflux, Hyperlipidemia, Syncope Additional Past Medical History / Comment(s): Pt recently admitted to [facility] on 01/11/19 with UTI/pancreatitis. Other hx: Previous pancreatitis 10/2018, NIDDM type II-pt states she is waiting to get a glucometer, developmental delay, UTI, chronic low back pain, bulging discs, dental abscesses in past, pt states she "blacked out" - last Saturday, Jan 30, 2019. History of Any Multi-Drug Resistant Organisms: None Reported Past Surgical History: Tubal Ligation Additional Past Surgical History / Comment(s): Age 7 had VSD repair Past Anesthesia/Blood Transfusion Reactions: No Reported Reaction Past Psychological History: No Psychological Hx Reported Smoking Status: Current every day smoker Past Alcohol Use History: None Reported Past Drug Use History: None Reported - Past Family History Mother Family Medical History: No Reported History Additional Family Medical History / Comment(s): Mother is healthy Father Family Medical History: No Reported History Additional Family Medical History / Comment(s): Father is healthy General Exam - General Exam Comments Initial Comments: Physical Exam GENERAL: Patient is well-developed and well-nourished. Patient is nontoxic and well-hydrated and is in no distress. HENT: Normocephalic, Atraumatic. EYES: PERRL, EOMI PULMONARY: Unlabored respirations. CARDIOVASCULAR: RRR Warm and well perfused extremities ABDOMEN: Non-distended SKIN: No rashes or bruising : Deferred NEUROLOGIC: Alert and oriented Normal speech Reproducible herbal vertiginous symptoms upon turning the head left or right MUSCULOSKELETAL: Moving all extremities with no apparent injury PSYCHIATRIC: No SI/HI Limitations: no limitations Course Vital Signs 04/19/19 04/19/19 03:40 05:42 Temperature 99.1 F 98.2 F Pulse Rate 56 L 60 Respiratory 18 18 Rate Blood Pressure 168/81 134/65 O2 Sat by Pulse 96 96 Oximetry Medical Decision Making - Medical Decision Making The patient was seen and evaluated history was obtained from the patient and review of medical record Repeat labs were obtained including influenza IV fluids were given patient was given a dose of meclizine upon reevaluation patient's resting comfortably watching TV reports no more vertiginous symptoms she is able to turn her head left and right without symptoms. At this time the patient will be discharged home in stable condition. - Lab Data Result diagrams: 04/19/19 04:28 04/19/19 04:28 Lab Results 04/19/19 04/19/19 04/19/19 Range/Units 04:28 04:28 04:28 WBC 8.6 (3.8-10.6) k/uL RBC 4.50 (3.80-5.40) m/uL Hgb 11.8 (11.4-16.0) gm/dL Hct 36.4 (34.0-46.0) % MCV 81.1 (80.0-100.0) fL MCH 26.3 (25.0-35.0) pg MCHC 32.4 (31.0-37.0) g/dL RDW 17.5 H (11.5-15.5) % Plt Count 494 H (150-450) k/uL Neutrophils % 67 % Lymphocytes % 22 % Monocytes % 6 % Eosinophils % 2 % Basophils % 2 % Neutrophils # 5.7 (1.3-7.7) k/uL Lymphocytes # 1.9 (1.0-4.8) k/uL Monocytes # 0.5 (0-1.0) k/uL Eosinophils # 0.2 (0-0.7) k/uL Basophils # 0.2 (0-0.2) k/uL Anisocytosis Slight Microcytosis Slight Sodium 140 (137-145) mmol/L Potassium 4.0 (3.5-5.1) mmol/L Chloride 104 (98-107) mmol/L Carbon Dioxide 28 (22-30) mmol/L Anion Gap 8 mmol/L BUN 15 (7-17) mg/dL Creatinine 0.81 (0.52-1.04) mg/dL Est GFR (CKD-EPI)AfAm >90 (>60 ml/min/1.73 sqM) Est GFR (CKD-EPI)NonAf 88 (>60 ml/min/1.73 sqM) Glucose 123 H (74-99) mg/dL Calcium 8.7 (8.4-10.2) mg/dL Total Bilirubin 0.4 (0.2-1.3) mg/dL AST 28 (14-36) U/L ALT 28 (4-34) U/L Alkaline Phosphatase 95 (38-126) U/L Total Protein 6.8 (6.3-8.2) g/dL Albumin 3.9 (3.5-5.0) g/dL Influenza Type A RNA Not Detected (Not Detectd) Influenza Type B (PCR) Not Detected (Not Detectd) Disposition Clinical Impression: Vertigo Disposition: HOME SELF-CARE Condition: Stable Additional Instructions: Make sure he drink plenty of fluids and stay hydrated if you're having dizziness when you turn your head or stand up using take the medication prescribed Antivert to take one every 6 hours later having symptoms next line follow-up with her regular doctor for reevaluation or return to the ER if he get worse Prescriptions: Meclizine [Antivert] 12.5 mg PO Q6H PRN #30 tablet PRN Reason: Vertigo Is patient prescribed a controlled substance at d/c from ED?: No Referrals: Guillermo Cerda MD [Primary Care Provider] - 1-2 days
== END 2019-04-19 06:52 | disposition home or self-care (01) ==
LOC: EC 03:39
DX: R42 Dizziness and giddiness (principal); E11.9 Type 2 diabetes mellitus without complications; K21.9 Gastro-esophageal reflux disease without esophagitis; F17.200 Nicotine dependence, unspecified, uncomplicated; Z79.4 Long term (current) use of insulin; Z79.899 Other long term (current) drug therapy
CPT/HCPCS: 36415; 80053; 85025; 87502; 96360; 99285

== ENCOUNTER 2019-04-25 11:46 | Observation (INO) | payer MEDICARE, OTHER ==
[2019-04-25] MEDS ORDERED: MORPHINE SULFATE 4 MG/ML SYRINGE IVP STA (12:01)
[2019-04-25] MEDS ORDERED: SODIUM CHLORIDE 0.9% 500 ML 500 ML IV ONE (12:01)
--- NOTE | 2019-04-25 12:11 | ED ---
General Adult HPI - General Chief complaint: Chest Pain Stated complaint: Chest pain Time Seen by Provider: 04/25/19 11:47 Source: patient, RN notes reviewed, old records reviewed Mode of arrival: ambulatory Limitations: no limitations - History of Present Illness Initial comments: 48 yo female presenting for evaluation of chest pain. She is left sided. Began approximately 4 hours prior to arrival. Pain was nonexertional. Patient has no known history of coronary artery disease. She has history of chronic pancreatitis and is experiencing some epigastric abdominal pain and nausea. No vomiting. No fever or chills. Patient is a current smoker. She denies fever, no diarrhea. No lower extremity pain or swelling. No shortness of breath. - Related Data Home Medications Medication Instructions Recorded Confirmed Esomeprazole Magnesium [NexIUM] 20 mg PO DAILY 01/15/19 04/11/19 Insulin Detemir (Levemir) [Levemir] 20 unit SQ HS 04/11/19 04/11/19 Previous Rx's Medication Instructions Recorded Ferrous Sulfate [Iron (65 MG 325 mg PO BID #60 tab 02/09/19 Elemental)] INSULIN ASPART (NovoLOG) [NovoLOG 6 unit SQ AC-TID #1 vial 02/10/19 (formulary)] Fenofibrate [Lofibra] 160 mg PO DAILY #30 tab 03/23/19 Ondansetron Odt [Zofran ODT] 4 mg PO Q8HR PRN #12 tab 04/10/19 Pantoprazole [Protonix] 40 mg PO DAILY #30 tablet. 04/10/19 Atorvastatin [Lipitor] 80 mg PO DAILY #30 tab 04/15/19 Lisinopril [Zestril] 5 mg PO DAILY #30 tab 04/15/19 Pantoprazole [Protonix] 40 mg PO DAILY #30 tablet. 04/18/19 Meclizine [Antivert] 12.5 mg PO Q6H PRN #30 tablet 04/19/19 Allergies Allergy/AdvReac Type Severity Reaction Status Date / Time No Known Allergies Allergy Verified 04/25/19 11:51 Review of Systems ROS Statement: Those systems with pertinent positive or pertinent negative responses have been documented in the HPI. ROS Other: All systems not noted in ROS Statement are negative. Past Medical History Past Medical History: Diabetes Mellitus, GERD/Reflux, Hyperlipidemia, Syncope Additional Past Medical History / Comment(s): Pt recently admitted to [facility] on 01/11/19 with UTI/pancreatitis. Other hx: Previous pancreatitis 10/2018, NIDDM type II-pt states she is waiting to get a glucometer, developmental delay, UTI, chronic low back pain, bulging discs, dental abscesses in past, pt states she "blacked out" - last Saturday, Jan 30, 2019. History of Any Multi-Drug Resistant Organisms: None Reported Past Surgical History: Tubal Ligation Additional Past Surgical History / Comment(s): Age 7 had VSD repair Past Anesthesia/Blood Transfusion Reactions: No Reported Reaction Past Psychological History: No Psychological Hx Reported Smoking Status: Current every day smoker Past Alcohol Use History: None Reported Past Drug Use History: None Reported - Past Family History Mother Family Medical History: No Reported History Additional Family Medical History / Comment(s): Mother is healthy Father Family Medical History: No Reported History Additional Family Medical History / Comment(s): Father is healthy General Exam Limitations: no limitations General appearance: alert, in no apparent distress Head exam: Present: atraumatic, normocephalic Eye exam: Present: normal appearance, PERRL ENT exam: Present: normal exam Neck exam: Present: normal inspection. Absent: tenderness, meningismus Respiratory exam: Present: normal lung sounds bilaterally. Absent: respiratory distress, wheezes Cardiovascular Exam: Present: regular rate, normal rhythm GI/Abdominal exam: Present: soft. Absent: distended, tenderness, guarding, rebound Extremities exam: Present: normal inspection, normal capillary refill. Absent: pedal edema Back exam: Present: normal inspection Neurological exam: Present: alert, oriented X3, CN II-XII intact. Absent: motor sensory deficit Psychiatric exam: Present: normal affect, normal mood Skin exam: Present: warm, dry, intact. Absent: cyanosis, diaphoretic Course Vital Signs 04/25/19 04/25/19 11:47 13:02 Pulse Rate 63 48 L Respiratory 17 18 Rate Blood Pressure 163/85 150/68 O2 Sat by Pulse 98 95 Oximetry EKG Findings - EKG Comments: EKG Findings:: EKG: Sinus bradycardia, LVH, rate of 57, MI interval 154, QRS duration 84, QTC [address] segment elevation. Medical Decision Making - Medical Decision Making 48-year-old female presenting with left anterior chest pain. Pain has been present for 4 hours prior to arrival. EKG is sinus bradycardia with no ST segment elevation, unchanged from previous EKGs. Patient has normal CBC with the exception of leukocytosis which is chronic and unchanged. Patient has normal electrolytes. She has a normal lipase as she does have a history of previous pancreatitis. Her troponin is negative at the 4 hour nhung. Chest x-rays negative for acute cardiopulmonary disease. Review the medical record reveals this patient has had 2 [address] angiography is within the past 3 months both of which were negative for PE or any other acute findings. She had a heart catheterization in March 2019 approximately one month ago which showed normal coronary arteries. She had an ultrasound and a HIDA scan which were also negative. I discussed patient's presentation with her primary care physician Dr. Cerda regarding outpatient follow-up first 24 hour observation. Recommended patient be kept in observation with serial cardiac enzymes and cardiology consultation. - Lab Data Result diagrams: 04/25/19 12:13 04/25/19 12:11 Lab Results 04/25/19 04/25/19 04/25/19 Range/Units 12:11 12:11 12:11 WBC (3.8-10.6) k/uL RBC (3.80-5.40) m/uL Hgb (11.4-16.0) gm/dL Hct (34.0-46.0) % MCV (80.0-100.0) fL MCH (25.0-35.0) pg MCHC (31.0-37.0) g/dL RDW (11.5-15.5) % Plt Count (150-450) k/uL Neutrophils % % Lymphocytes % % Monocytes % % Eosinophils % % Basophils % % Neutrophils # (1.3-7.7) k/uL Lymphocytes # (1.0-4.8) k/uL Monocytes # (0-1.0) k/uL Eosinophils # (0-0.7) k/uL Basophils # (0-0.2) k/uL Anisocytosis Microcytosis PT 9.8 (9.0-12.0) sec INR 0.9 (<1.2) APTT 23.5 (22.0-30.0) sec Sodium 140 (137-145) mmol/L Potassium 4.3 (3.5-5.1) mmol/L Chloride 104 (98-107) mmol/L Carbon Dioxide 25 (22-30) mmol/L Anion Gap 11 mmol/L BUN 7 (7-17) mg/dL Creatinine 0.69 (0.52-1.04) mg/dL Est GFR (CKD-EPI)AfAm >90 (>60 ml/min/1.73 sqM) Est GFR (CKD-EPI)NonAf >90 (>60 ml/min/1.73 sqM) Glucose 148 H (74-99) mg/dL Calcium 9.3 (8.4-10.2) mg/dL Magnesium 1.5 L (1.6-2.3) mg/dL Total Bilirubin 0.5 (0.2-1.3) mg/dL AST 40 H (14-36) U/L ALT 28 (4-34) U/L Alkaline Phosphatase 121 (38-126) U/L Troponin I <0.012 (0.000-0.034) ng/mL Total Protein 7.6 (6.3-8.2) g/dL Albumin 4.3 (3.5-5.0) g/dL Lipase 143 (23-300) U/L 04/25/19 Range/Units 12:13 WBC 8.8 (3.8-10.6) k/uL RBC 4.92 (3.80-5.40) m/uL Hgb 12.7 (11.4-16.0) gm/dL Hct 39.9 (34.0-46.0) % MCV 81.1 (80.0-100.0) fL MCH 25.7 (25.0-35.0) pg MCHC 31.7 (31.0-37.0) g/dL RDW 17.1 H (11.5-15.5) % Plt Count 506 H (150-450) k/uL Neutrophils % 74 % Lymphocytes % 19 % Monocytes % 4 % Eosinophils % 2 % Basophils % 1 % Neutrophils # 6.5 (1.3-7.7) k/uL Lymphocytes # 1.6 (1.0-4.8) k/uL Monocytes # 0.3 (0-1.0) k/uL Eosinophils # 0.2 (0-0.7) k/uL Basophils # 0.1 (0-0.2) k/uL Anisocytosis Slight Microcytosis Slight PT (9.0-12.0) sec INR (<1.2) APTT (22.0-30.0) sec Sodium (137-145) mmol/L Potassium (3.5-5.1) mmol/L Chloride (98-107) mmol/L Carbon Dioxide (22-30) mmol/L Anion Gap mmol/L BUN (7-17) mg/dL Creatinine (0.52-1.04) mg/dL Est GFR (CKD-EPI)AfAm (>60 ml/min/1.73 sqM) Est GFR (CKD-EPI)NonAf (>60 ml/min/1.73 sqM) Glucose (74-99) mg/dL Calcium (8.4-10.2) mg/dL Magnesium (1.6-2.3) mg/dL Total Bilirubin (0.2-1.3) mg/dL AST (14-36) U/L ALT (4-34) U/L Alkaline Phosphatase (38-126) U/L Troponin I (0.000-0.034) ng/mL Total Protein (6.3-8.2) g/dL Albumin (3.5-5.0) g/dL Lipase (23-300) U/L Disposition Clinical Impression: Chest pain Disposition: ADMITTED IP TO THIS [facility] Condition: Stable Is patient prescribed a controlled substance at d/c from ED?: No Referrals: Guillermo Cerda MD [Primary Care Provider] - 1-2 days Decision to Admit Reason: Admit from EC Decision Date: 04/25/19 Decision Time: 14:02
[2019-04-25 12:35] LABS: Anisocytosis Slight; Basophils # (A) 0.1 k/uL (0-0.2); Basophils % (A) 1 %; Eosinophils # (A) 0.2 k/uL (0-0.7); Eosinophils % (A) 2 %; HCT 39.9 % (34.0-46.0); HGB 12.7 gm/dL (11.4-16.0); Lymphocytes # (A) 1.6 k/uL (1.0-4.8); Lymphocytes % (A) 19 %; MCH 25.7 pg (25.0-35.0); MCHC 31.7 g/dL (31.0-37.0); MCV 81.1 fL (80.0-100.0); Mean Platelet Volume 6.7; Microcytosis Slight; Monocytes # (A) 0.3 k/uL (0-1.0); Monocytes % (A) 4 %; Neutrophils # (A) 6.5 k/uL (1.3-7.7); Neutrophils % (A) 74 %; Platelet Count 506 k/uL (150-450); RBC 4.92 m/uL (3.80-5.40); RDW 17.1 % (11.5-15.5); WBC 8.8 k/uL (3.8-10.6)
--- NOTE | 2019-04-25 12:47 | XR ---
EXAMINATION TYPE: XR chest 2V DATE OF EXAM ORDERED: 04/25/2019 HISTORY: Chest Pain. REFERENCE: Previous study dated 04/18/2019. FINDINGS: The lungs are clear. Pleural spaces are clear. Heart size is normal. IMPRESSION: NORMAL CHEST.
[2019-04-25 12:50] LABS: ALT 28 U/L (4-34); AST 40 U/L (14-36); African American GFR (CKD) >90 (>60 ml/min/1.73 sqM); Albumin 4.3 g/dL (3.5-5.0); Alkaline Phosphatase 121 U/L (38-126); Anion Gap 11 mmol/L; Blood Urea Nitrogen 7 mg/dL (7-17); Calcium 9.3 mg/dL (8.4-10.2); Carbon Dioxide 25 mmol/L (22-30); Chloride 104 mmol/L (98-107); Glucose 148 mg/dL (74-99); INR 0.9 (<1.2); Magnesium 1.5 mg/dL (1.6-2.3); Non-African American GFR(CKD) >90 (>60 ml/min/1.73 sqM); Partial Thromboplastin Time 23.5 sec (22.0-30.0); Potassium 4.3 mmol/L (3.5-5.1); Prothrombin Time 9.8 sec (9.0-12.0); Sodium 140 mmol/L (137-145); Total Bilirubin 0.5 mg/dL (0.2-1.3); Total Protein 7.6 g/dL (6.3-8.2)
[2019-04-25] MEDS ORDERED: MAGNESIUM SULFATE-D5W PMX 1 GM in DEXTROSE/WATER 1 100ML.BAG IVPB ONE (13:01)
[2019-04-25] MEDS ORDERED: NALOXONE 0.4 MG/ML 1 ML VIAL IV PRN (13:57)
[2019-04-25] MEDS ORDERED: ONDANSETRON 4 MG/2 ML VIAL IVP PRN (13:57)
[2019-04-25 16:27] LABS: Glucose,Whole Blood 118 mg/dL (75-99)
[2019-04-25] MEDS: INSULIN ASPART (NovoLOG) 100 UNIT/ML VIAL SQ SCH (16:57)
[2019-04-25] MEDS: ACETAMINOPHEN TAB 325 MG TAB PO PRN (17:23)
[2019-04-25] MEDS: HYDROcodone/APAP 5-325MG 1 EACH TAB PO PRN (19:44)
[2019-04-25 19:57] LABS: Glucose,Whole Blood 121 mg/dL (75-99)
[2019-04-26] MEDS: HYDROcodone/APAP 5-325MG 1 EACH TAB PO PRN ×5 (00:15→20:41)
[2019-04-26 07:10] LABS: Glucose,Whole Blood 118 mg/dL (75-99)
[2019-04-26] MEDS: INSULIN ASPART (NovoLOG) 100 UNIT/ML VIAL SQ SCH ×3 (08:18→17:18)
[2019-04-26] MEDS: LISINOPRIL 5 MG TAB PO SCH (08:24)
[2019-04-26] MEDS: PANTOPRAZOLE 40 MG TABLET PO SCH (08:24)
[2019-04-26] MEDS: ATORVASTATIN 40 MG TAB PO SCH (08:24)
[2019-04-26] MEDS: FENOFIBRATE 160 MG TAB PO SCH (08:24)
[2019-04-26] MEDS: ACETAMINOPHEN TAB 325 MG TAB PO PRN (08:28)
[2019-04-26] MEDS ORDERED: NON FORMULARY DRUG (Esomeprazole Magnesium [Nexium] 20 MG) PO SCH (09:00)
--- NOTE | 2019-04-26 09:49 | P.CRDCN ---
History of Present Illness Consult date: 04/26/19 Chief complaint: Chest pain History of present illness: This is a pleasant 48-year-old female patient who was known to me from before with history of ventricular septal defect was repaired as a child, diabetes, hypertension, and dyslipidemia, presented to the hospital again with chest discomfort. This is her third admission within the last few months. The first admission was in March 2019 when she came in with chest discomfort and savage nues to have ongoing chest discomfort where she underwent a heart catheterization and that revealed normal coronaries. Subsequently the patient was admitted to the hospital in early April with a chest discomfort as well and she was treated medically. This time her third admission when she came in was discomfort in the lower chest and epigastric area without any radiation to the arms or neck or shoulders and without any associated symptoms. On examination she does have chest wall tenderness. Also she does have epigastric tenderness. The EKG showed sinus rhythm without any significant ST or T-wave abnormalities. The cardiac enzymes were checked and came in to be unremarkable. From the cardiac vascular standpoint of view, the patient can be discharged home. Please note that she underwent an echocardiogram and that came in to be unremarkable. Past Medical History Past Medical History: Diabetes Mellitus, GERD/Reflux, Hyperlipidemia, Syncope Additional Past Medical History / Comment(s): Pt recently admitted to [facility] on 01/11/19 with UTI/pancreatitis. Other hx: Previous pancreatitis 10/2018, NIDDM type II-pt states she is waiting to get a glucometer, developmental delay, UTI, chronic low back pain, bulging discs, dental abscesses in past, pt states she "blacked out" - last Saturday, Jan 30, 2019. History of Any Multi-Drug Resistant Organisms: None Reported Past Surgical History: Tubal Ligation Additional Past Surgical History / Comment(s): Age 7 had VSD repair Past Anesthesia/Blood Transfusion Reactions: No Reported Reaction Past Psychological History: No Psychological Hx Reported Additional Psychological History / Comment(s): Pt resides with her fiancee. She uses no assistive devices. She does not drive. She gets to appointments by walking or using the bus system. She has a glucometer at home. Smoking Status: Current every day smoker Past Alcohol Use History: None Reported Additional Past Alcohol Use History / Comment(s): Pt started smoking in 2000- smokes 5 cigarettes a day. Past Drug Use History: None Reported - Past Family History Mother Family Medical History: No Reported History Additional Family Medical History / Comment(s): Mother is healthy Father Family Medical History: No Reported History Additional Family Medical History / Comment(s): Father is healthy Medications and Allergies Home Medications Medication Instructions Recorded Confirmed Type Esomeprazole Magnesium [NexIUM] 20 mg PO DAILY 01/15/19 04/25/19 History Ferrous Sulfate [Iron (65 MG 325 mg PO BID #60 tab 02/09/19 04/25/19 Rx Elemental)] INSULIN ASPART (NovoLOG) [NovoLOG 6 unit SQ AC-TID #1 vial 02/10/19 04/25/19 Rx (formulary)] Fenofibrate [Lofibra] 160 mg PO DAILY #30 tab 03/23/19 04/25/19 Rx Ondansetron Odt [Zofran ODT] 4 mg PO Q8HR PRN #12 tab 04/10/19 04/25/19 Rx Pantoprazole [Protonix] 40 mg PO DAILY #30 tablet. 04/10/19 04/25/19 Rx Insulin Detemir (Levemir) [Levemir] 20 unit SQ HS 04/11/19 04/25/19 History Lisinopril [Zestril] 5 mg PO DAILY #30 tab 04/15/19 04/25/19 Rx Meclizine [Antivert] 12.5 mg PO Q6H PRN #30 tablet 04/19/19 04/25/19 Rx Acetaminophen with Codeine 1 tab PO DAILY PRN 04/25/19 04/25/19 History [Tylenol w/codeine #3] Atorvastatin [Lipitor] 40 mg PO DAILY 04/25/19 04/25/19 History traMADol HCl [Ultram] 1 tab PO Q6H 04/25/19 04/25/19 History Allergies Allergy/AdvReac Type Severity Reaction Status Date / Time No Known Allergies Allergy Verified 04/25/19 11:51 Physical Exam Vitals: Vital Signs Temp Pulse Pulse Pulse Resp BP BP 04/26/19 08:00 43 L 18 04/26/19 07:41 98.8 F 43 L 18 139/58 04/26/19 04:00 98.5 F 46 L 18 137/84 04/26/19 03:06 18 04/26/19 00:00 98.5 F 46 L 18 155/85 04/25/19 23:28 18 04/25/19 20:00 18 04/25/19 19:30 98.3 F 47 L 18 149/87 04/25/19 16:27 53 L 04/25/19 15:30 98.5 F 56 L 14 164/82 04/25/19 13:02 48 L 18 150/68 04/25/19 11:47 63 17 163/85 Pulse Ox 04/26/19 08:00 04/26/19 07:41 94 L 04/26/19 04:00 94 L 04/26/19 03:06 04/26/19 00:00 95 04/25/19 23:28 04/25/19 20:00 04/25/19 19:30 94 L 04/25/19 16:27 04/25/19 15:30 95 04/25/19 13:02 95 04/25/19 11:47 98 Intake and Output 04/25/19 04/26/19 04/26/19 22:59 06:59 14:59 Other: Voiding Method Toilet Toilet Toilet # Voids 1 1 2 - Constitutional General appearance: no acute distress - Respiratory Respiratory: bilateral: CTA - Cardiovascular Rhythm: regular Heart sounds: normal: S1, S2 Results 04/25/19 12:13 04/25/19 12:11 Cardiac Enzymes 04/25/19 04/25/19 04/25/19 Range/Units 12:11 12:11 17:52 AST 40 H (14-36) U/L Troponin I <0.012 <0.012 (0.000-0.034) ng/mL 04/26/19 Range/Units 00:20 AST (14-36) U/L Troponin I <0.012 (0.000-0.034) ng/mL Coagulation 04/25/19 Range/Units 12:11 PT 9.8 (9.0-12.0) sec APTT 23.5 (22.0-30.0) sec CBC 04/25/19 Range/Units 12:13 WBC 8.8 (3.8-10.6) k/uL RBC 4.92 (3.80-5.40) m/uL Hgb 12.7 (11.4-16.0) gm/dL Hct 39.9 (34.0-46.0) % Plt Count 506 H (150-450) k/uL Comprehensive Metabolic Panel 04/25/19 Range/Units 12:11 Sodium 140 (137-145) mmol/L Potassium 4.3 (3.5-5.1) mmol/L Chloride 104 (98-107) mmol/L Carbon Dioxide 25 (22-30) mmol/L BUN 7 (7-17) mg/dL Creatinine 0.69 (0.52-1.04) mg/dL Glucose 148 H (74-99) mg/dL Calcium 9.3 (8.4-10.2) mg/dL AST 40 H (14-36) U/L ALT 28 (4-34) U/L Alkaline Phosphatase 121 (38-126) U/L Total Protein 7.6 (6.3-8.2) g/dL Albumin 4.3 (3.5-5.0) g/dL Current Medications Generic Name Dose Route Start Last Admin Trade Name Freq PRN Reason Stop Dose Admin Acetaminophen 650 mg 04/25/19 13:57 04/26/19 08:28 Tylenol Tab PO 650 mg Q6HR PRN Administration Mild Pain or Fever > 100.5 Hydrocodone Bitart/Acetaminophen 1 each 04/25/19 13:57 04/26/19 06:33 [place] 5-325 PO 1 each Q4HR PRN Administration Moderate Pain Atorvastatin Calcium 40 mg 04/26/19 09:00 04/26/19 08:24 Lipitor PO 40 mg DAILY YARON Administration Fenofibrate 160 mg 04/26/19 09:00 04/26/19 08:24 Lofibra PO 160 mg DAILY YARON Administration Insulin Aspart 6 unit 04/25/19 17:30 04/26/19 08:18 Novolog SQ Not Given AC-TID YARON Lisinopril 5 mg 04/26/19 09:00 04/26/19 08:24 Zestril PO 5 mg DAILY YARON Administration Naloxone HCl 0.2 mg 04/25/19 13:57 Narcan IV Q2M PRN Opioid Reversal Ondansetron HCl 4 mg 04/25/19 13:57 Zofran IVP Q8HR PRN Nausea And Vomiting Pantoprazole Sodium 40 mg 04/26/19 07:30 01/19/20 08:24 Protonix PO 40 mg [id number] YARON Administration Intake and Output 04/25/19 04/26/19 04/26/19 22:59 06:59 14:59 Other: Voiding Method Toilet Toilet Toilet # Voids 1 1 2 04/25/19 12:13 04/25/19 12:11 Assessment and Plan Assessment: Assessment #1 atypical chest discomfort #2 history of VSD repair #3 multiple risk factors Plan #1 acute coronary event was ruled out #2 the patient underwent a heart catheterization recently and that revealed normal coronaries #3 the patient can be discharged home
[2019-04-26 11:30] LABS: Glucose,Whole Blood 133 mg/dL (75-99)
[2019-04-26 16:44] LABS: Glucose,Whole Blood 135 mg/dL (75-99)
--- NOTE | 2019-04-26 20:04 | PN ---
PROGRESS NOTE CHIEF COMPLAINT: Chest pain and pancreatitis. HISTORY OF PRESENT ILLNESS: This lady is doing a little bit better and she is not having chest pain at this time. She has been seen, evaluated by Cardiology and they have nothing further planned. PHYSICAL EXAMINATION: Chest is clear. Cardiac exam demonstrates a faint murmur which I have not heard before. Abdomen is soft and nontender. IMPRESSION: 1. Chest pain. 2. Cardiac murmur (new?). 3. Pancreatitis. 4. Hypertriglyceridemia. 5. Insulin-dependent diabetes mellitus. PLAN: Progress activity and probably home tomorrow. Her last echocardiogram will be reviewed considering the murmur. MMODL / IJN: [id number] /
[2019-04-26 20:12] LABS: Glucose,Whole Blood 129 mg/dL (75-99)
--- NOTE | 2019-04-26 20:37 | HP ---
HISTORY AND PHYSICAL CHIEF COMPLAINT: Chest pain. HISTORY OF PRESENT ILLNESS: This is another recent admission for this 48-year-old white female who has been coming in frequently with complaints chest pain. She has had stress study and cardiac cath which demonstrates no cardiac pathology. She also has developed insulin-dependent diabetes mellitus which is under reasonable control. She presented again with chest pain without elevated troponin and then it was felt that by the emergency room that she should be admitted overnight. Her lipases are surprisingly good. REVIEW OF SYSTEMS: She has had no neurologic problems, change in vision, hearing, cough, hemoptysis, fever, chills, abdominal pain, vomiting, diarrhea, melena, jaundice, renal failure, frequency, urgency and dysuria, etc. PAST MEDICAL HISTORY: Past medical history, family history personal and social histories are all otherwise unremarkable and noncontributory or unchanged. PHYSICAL EXAMINATION: Blood pressure is 124/80 with a pulse of 78, respirations of 15. She is afebrile. In general, she will be overweight, in no acute distress. Skin color is normal. Skin is warm, dry. Lymph nodes are not enlarged. Head, ears, eyes, nose, mouth, and throat are normal. Neck veins not distended. Thyroid enlarged. Chest is clear. Cardiac exam is normal. Abdomen is soft, nontender. She is not tender over the epigastrium. Bowel sounds are present. Extremities normal. Neurologically she is intact. IMPRESSION: She is admitted with a diagnosis of: 1. Recurrent and intractable chest pain, noncardiac. 2. Pancreatitis. 3. Hypertriglyceridemia. 4. Insulin-dependent diabetes mellitus. PLAN: 1. Bed rest. 2. IV fluids. 3. Serial EKGs and enzymes. 4. Consult Cardiology once again. MMODL / IJN: [id number] /
[2019-04-27 06:43] LABS: Glucose,Whole Blood 122 mg/dL (75-99)
[2019-04-27 07:09] VITALS: PULSE 56; RESP 18; TEMP 98.5
[2019-04-27] MEDS: FENOFIBRATE 160 MG TAB PO SCH (08:02)
[2019-04-27] MEDS: HYDROcodone/APAP 5-325MG 1 EACH TAB PO PRN ×2 (08:02→12:08)
[2019-04-27] MEDS: PANTOPRAZOLE 40 MG TABLET PO SCH (08:02)
[2019-04-27] MEDS: LISINOPRIL 5 MG TAB PO SCH (08:02)
[2019-04-27] MEDS: ATORVASTATIN 40 MG TAB PO SCH (08:02)
[2019-04-27] MEDS: INSULIN ASPART (NovoLOG) 100 UNIT/ML VIAL SQ SCH ×2 (08:06→12:08)
[2019-04-27 11:20] VITALS: BP 124/68
[2019-04-27 11:38] LABS: Glucose,Whole Blood 154 mg/dL (75-99)
--- NOTE | 2019-04-27 23:02 | DS ---
DISCHARGE SUMMARY CHIEF COMPLAINT: Chest pain. HISTORY OF PRESENT ILLNESS AND PHYSICAL EXAMINATION: Details of this lady's history and physical can be found in the initial workup. LABORATORY STUDIES: While she was in the hospital she had laboratory studies, details of which can be found in the laboratory section of her chart. COURSE IN THE HOSPITAL: After admission she was placed on bedrest, started on intravenous fluids and her blood sugars were monitored. Her lipase was normal. She was seen again by Cardiology, but they had nothing further to offer her. She was doing well, and even though she did not want to go home, she was discharged on April 27. She will go home on her usual activity and medication and be seen in the office in several days. FINAL DIAGNOSES: 1. Atypical chest pain. 2. Pancreatitis. 3. Insulin-dependent diabetes mellitus. 4. Obesity. 5. Depression. OPERATIONS: None. CONSULTATION: Cardiology. She is improved. MMODL / IJN: [id number] /
== END 2019-04-27 12:45 | disposition home or self-care (01) ==
LOC: EC 11:46 → 1SOBS 14:00
PROVIDERS: ADMIT Family Medicine; ATTEND Family Medicine
DX: R07.89 Other chest pain (principal); E66.9 Obesity, unspecified; F32.9 Major depressive disorder, single episode, unspecified; E11.9 Type 2 diabetes mellitus without complications; K21.9 Gastro-esophageal reflux disease without esophagitis; E78.5 Hyperlipidemia, unspecified; K86.1 Other chronic pancreatitis; G89.29 Other chronic pain; M54.5 Low back pain; E78.1 Pure hyperglyceridemia; M51.9 Unspecified thoracic, thoracolumbar and lumbosacral intervertebral disc disorder; F17.200 Nicotine dependence, unspecified, uncomplicated; Z86.79 Personal history of other diseases of the circulatory system; Z98.890 Other specified postprocedural states; Z79.4 Long term (current) use of insulin; Z79.899 Other long term (current) drug therapy
CPT/HCPCS: 93005 ×2; 96375 ×2; 96361; 96365; 99285; 36415; 80053; 83690; 83735; 84484 ×2; 85025; 85610; 85730; 71046; G0378 ×3; J2270; J2405; J3475

== ENCOUNTER 2019-04-28 08:13 | Observation (INO) | payer MEDICARE, OTHER ==
[2019-04-28] MEDS ORDERED: ASPIRIN 81 MG PO STA (08:34)
[2019-04-28] MEDS ORDERED: NITROGLYCERIN OINT 1 INCH/GM PACKET TOPICAL STA (08:34)
[2019-04-28 08:46] LABS: Anisocytosis Slight; Basophils # (A) 0.1 k/uL (0-0.2); Basophils % (A) 1 %; Eosinophils # (A) 0.2 k/uL (0-0.7); Eosinophils % (A) 2 %; HCT 39.5 % (34.0-46.0); HGB 12.7 gm/dL (11.4-16.0); Hypochromasia Slight; Lymphocytes # (A) 2.2 k/uL (1.0-4.8); Lymphocytes % (A) 22 %; MCH 26.1 pg (25.0-35.0); MCHC 32.1 g/dL (31.0-37.0); MCV 81.3 fL (80.0-100.0); Mean Platelet Volume 6.9; Microcytosis Slight; Monocytes # (A) 0.5 k/uL (0-1.0); Monocytes % (A) 5 %; Neutrophils # (A) 6.8 k/uL (1.3-7.7); Neutrophils % (A) 68 %; Platelet Count 556 k/uL (150-450); RBC 4.86 m/uL (3.80-5.40); RDW 16.5 % (11.5-15.5)
--- NOTE | 2019-04-28 08:55 | XR ---
EXAMINATION TYPE: XR chest 2V DATE OF EXAM: 04/28/2019 COMPARISON: Chest x-ray 3 days ago HISTORY: Chest pain and difficulty breathing. TECHNIQUE: Frontal and lateral views of the chest are obtained. FINDINGS: There is no focal air space opacity, pleural effusion, or pneumothorax seen. The cardiac silhouette size is stable and mildly enlarged. Overlying sternal wires redemonstrated. There is malcolm k in one of the more inferior sternal wires seen on lateral view redemonstrated. Overlying EKG leads again seen. The osseous structures are intact. IMPRESSION: Mild cardiomegaly without acute pulmonary process. No significant change from prior.
[2019-04-28 08:56] LABS: ALT 21 U/L (4-34); AST 28 U/L (14-36); African American GFR (CKD) >90 (>60 ml/min/1.73 sqM); Albumin 4.3 g/dL (3.5-5.0); Alkaline Phosphatase 104 U/L (38-126); Anion Gap 12 mmol/L; Blood Urea Nitrogen 20 mg/dL (7-17); Calcium 9.3 mg/dL (8.4-10.2); Carbon Dioxide 27 mmol/L (22-30); Chloride 107 mmol/L (98-107); Glucose 139 mg/dL (74-99); Magnesium 1.7 mg/dL (1.6-2.3); Non-African American GFR(CKD) 84 (>60 ml/min/1.73 sqM); Potassium 4.5 mmol/L (3.5-5.1); Sodium 146 mmol/L (137-145); Total Bilirubin 0.5 mg/dL (0.2-1.3); Total Protein 7.5 g/dL (6.3-8.2)
[2019-04-28 09:03] LABS: INR 0.9 (<1.2); Partial Thromboplastin Time 23.1 sec (22.0-30.0); Prothrombin Time 9.9 sec (9.0-12.0)
--- NOTE | 2019-04-28 09:33 | ED ---
General Adult HPI - General Chief complaint: Chest Pain Stated complaint: Chest pain Time Seen by Provider: 04/28/19 08:15 Source: patient, RN notes reviewed, old records reviewed Mode of arrival: ambulatory Limitations: no limitations - History of Present Illness Initial comments: This is a 48 old female presents emergency department with past medical history significant for smoking and high cholesterol. Patient states she comes in today because she continues to have chest pain. Patient states she came in Saturday because she had chest pain and the pain is never gone away not even while she was in the hospital. Patient states she has no difficulty breathing or radiation of the pain. Patient denies any diaphoretic episodes. Patient denies any nausea. Patient denies lightheadedness or dizziness. Patient denies any abdominal pain patient denies any vomiting or diarrhea. Patient denies any recent fever chills or cough per patient denies any swelling to the legs or calf tenderness. - Related Data Home Medications Medication Instructions Recorded Confirmed Esomeprazole Magnesium [NexIUM] 20 mg PO DAILY 01/15/19 04/28/19 Insulin Detemir (Levemir) [Levemir] 20 unit SQ HS@1900 04/11/19 04/28/19 Atorvastatin [Lipitor] 40 mg PO DAILY 04/25/19 04/28/19 traMADol HCl [Ultram] 1 tab PO Q6H PRN 04/25/19 04/28/19 Previous Rx's Medication Instructions Recorded Ferrous Sulfate [Iron (65 MG 325 mg PO BID #60 tab 02/09/19 Elemental)] INSULIN ASPART (NovoLOG) [NovoLOG 6 unit SQ AC-TID #1 vial 02/10/19 (formulary)] Fenofibrate [Lofibra] 160 mg PO DAILY #30 tab 03/23/19 Ondansetron Odt [Zofran ODT] 4 mg PO Q8HR PRN #12 tab 04/10/19 Lisinopril [Zestril] 5 mg PO DAILY #30 tab 04/15/19 Meclizine [Antivert] 12.5 mg PO Q6H PRN #30 tablet 04/19/19 Allergies Allergy/AdvReac Type Severity Reaction Status Date / Time No Known Allergies Allergy Verified 04/28/19 08:21 Review of Systems ROS Statement: Those systems with pertinent positive or pertinent negative responses have been documented in the HPI. ROS Other: All systems not noted in ROS Statement are negative. Past Medical History Past Medical History: Diabetes Mellitus, GERD/Reflux, Hyperlipidemia, Syncope Additional Past Medical History / Comment(s): Pt recently admitted to [facility] on 01/11/19 with UTI/pancreatitis. Other hx: Previous pancreatitis 10/2018, NIDDM type II-pt states she is waiting to get a glucometer, developmental delay, UTI, chronic low back pain, bulging discs, dental abscesses in past, pt states she "blacked out" - last Saturday, Jan 30, 2019. History of Any Multi-Drug Resistant Organisms: None Reported Past Surgical History: Tubal Ligation Additional Past Surgical History / Comment(s): Age 7 had VSD repair Past Anesthesia/Blood Transfusion Reactions: No Reported Reaction Past Psychological History: No Psychological Hx Reported Smoking Status: Current every day smoker Past Alcohol Use History: None Reported Past Drug Use History: None Reported - Past Family History Mother Family Medical History: No Reported History Additional Family Medical History / Comment(s): Mother is healthy Father Family Medical History: No Reported History Additional Family Medical History / Comment(s): Father is healthy General Exam - General Exam Comments Initial Comments: GENERAL: Patient is well-developed and well-nourished. Patient is nontoxic and well- hydrated and is in no acute distress. ENT: Neck is soft and supple. No significant lymphadenopathy is noted. Oropharynx is clear. Moist mucous membranes. Neck has full range of motion without eliciting any pain. EYES: The sclera were anicteric and conjunctiva were pink and moist. Extraocular movements were intact and pupils were equal round and reactive to light. Eyelids were unremarkable. PULMONARY: Unlabored respirations. Good breath sounds bilaterally. No audible rales rhonchi or wheezing was noted. CARDIOVASCULAR: There is a regular rate and rhythm without any murmurs gallops or rubs. ABDOMEN: Soft and nontender with normal bowel sounds. SKIN: Skin is clear with no lesions or rashes and otherwise unremarkable. NEUROLOGIC: Patient is alert and oriented x3. Cranial nerves II through XII are grossly intact. Motor and sensory are also intact. Normal speech, volume and content. Symmetrical smile. MUSCULOSKELETAL: Normal extremities with adequate strength and full range of motion. No lower extremity swelling or edema. No calf tenderness. LYMPHATICS: No significant lymphadenopathy is noted PSYCHIATRIC: Normal psychiatric evaluation. Limitations: no limitations Course Vital Signs 04/28/19 04/28/19 04/28/19 08:14 08:19 09:18 Temperature 98.9 F Pulse Rate 62 57 L Respiratory 16 18 Rate Blood Pressure 137/77 131/46 O2 Sat by Pulse 98 95 Oximetry 04/28/19 10:00 Temperature Pulse Rate 66 Respiratory 15 Rate Blood Pressure 131/46 O2 Sat by Pulse 95 Oximetry Medical Decision Making - Medical Decision Making EKG shows normal sinus rhythm at 70 bpm GA interval 148 QRS is 82 QT interval 392 QTC is 423. Patient's EKG shows inverted T waves in leads 1 to and aVL as well as precordial leads V4 V5 and V6. That if I reviewed the patient's cardiac catheterization in March that showed normal coronaries. Chest x-ray shows no acute abnormality. I spoke with Dr. Torres and he wanted the patient admitted to 23 observation. I consult cardiology - Lab Data Result diagrams: 04/28/19 08:27 04/28/19 08:27 Lab Results 04/28/19 04/28/19 04/28/19 Range/Units 08:27 08:27 08:27 WBC 10.0 (3.8-10.6) k/uL RBC 4.86 (3.80-5.40) m/uL Hgb 12.7 (11.4-16.0) gm/dL Hct 39.5 (34.0-46.0) % MCV 81.3 (80.0-100.0) fL MCH 26.1 (25.0-35.0) pg MCHC 32.1 (31.0-37.0) g/dL RDW 16.5 H (11.5-15.5) % Plt Count 556 H (150-450) k/uL Neutrophils % 68 % Lymphocytes % 22 % Monocytes % 5 % Eosinophils % 2 % Basophils % 1 % Neutrophils # 6.8 (1.3-7.7) k/uL Lymphocytes # 2.2 (1.0-4.8) k/uL Monocytes # 0.5 (0-1.0) k/uL Eosinophils # 0.2 (0-0.7) k/uL Basophils # 0.1 (0-0.2) k/uL Hypochromasia Slight Anisocytosis Slight Microcytosis Slight PT 9.9 (9.0-12.0) sec INR 0.9 (<1.2) APTT 23.1 (22.0-30.0) sec Sodium 146 H (137-145) mmol/L Potassium 4.5 (3.5-5.1) mmol/L Chloride 107 (98-107) mmol/L Carbon Dioxide 27 (22-30) mmol/L Anion Gap 12 mmol/L BUN 20 H (7-17) mg/dL Creatinine 0.84 (0.52-1.04) mg/dL Est GFR (CKD-EPI)AfAm >90 (>60 ml/min/1.73 sqM) Est GFR (CKD-EPI)NonAf 84 (>60 ml/min/1.73 sqM) Glucose 139 H (74-99) mg/dL Calcium 9.3 (8.4-10.2) mg/dL Magnesium 1.7 (1.6-2.3) mg/dL Total Bilirubin 0.5 (0.2-1.3) mg/dL AST 28 (14-36) U/L ALT 21 (4-34) U/L Alkaline Phosphatase 104 (38-126) U/L Troponin I (0.000-0.034) ng/mL Total Protein 7.5 (6.3-8.2) g/dL Albumin 4.3 (3.5-5.0) g/dL 04/28/19 Range/Units 08:27 WBC (3.8-10.6) k/uL RBC (3.80-5.40) m/uL Hgb (11.4-16.0) gm/dL Hct (34.0-46.0) % MCV (80.0-100.0) fL MCH (25.0-35.0) pg MCHC (31.0-37.0) g/dL RDW (11.5-15.5) % Plt Count (150-450) k/uL Neutrophils % % Lymphocytes % % Monocytes % % Eosinophils % % Basophils % % Neutrophils # (1.3-7.7) k/uL Lymphocytes # (1.0-4.8) k/uL Monocytes # (0-1.0) k/uL Eosinophils # (0-0.7) k/uL Basophils # (0-0.2) k/uL Hypochromasia Anisocytosis Microcytosis PT (9.0-12.0) sec INR (<1.2) APTT (22.0-30.0) sec Sodium (137-145) mmol/L Potassium (3.5-5.1) mmol/L Chloride (98-107) mmol/L Carbon Dioxide (22-30) mmol/L Anion Gap mmol/L BUN (7-17) mg/dL Creatinine (0.52-1.04) mg/dL Est GFR (CKD-EPI)AfAm (>60 ml/min/1.73 sqM) Est GFR (CKD-EPI)NonAf (>60 ml/min/1.73 sqM) Glucose (74-99) mg/dL Calcium (8.4-10.2) mg/dL Magnesium (1.6-2.3) mg/dL Total Bilirubin (0.2-1.3) mg/dL AST (14-36) U/L ALT (4-34) U/L Alkaline Phosphatase (38-126) U/L Troponin I <0.012 (0.000-0.034) ng/mL Total Protein (6.3-8.2) g/dL Albumin (3.5-5.0) g/dL Disposition Clinical Impression: Chest pain Disposition: ADMITTED IP TO THIS HOSP Referrals: Guillermo Cerda MD [Primary Care Provider] - 1-2 days Time of Disposition: 10:53
[2019-04-28] MEDS ORDERED: NITROGLYCERIN SL TABS 0.4 MG TAB SUBLINGUAL PRN (10:53)
[2019-04-28] MEDS: NITROGLYCERIN OINT 1 INCH/GM PACKET TOPICAL SCH ×2 (12:04→18:34)
[2019-04-28] MEDS ORDERED: PNEUMOCOCCAL VACC-PNEUMOVAX 23 25 MCG/0.5 ML VIAL IM ONE (15:34)
[2019-04-28 16:39] LABS: Glucose,Whole Blood 138 mg/dL (75-99)
[2019-04-28 20:20] LABS: Glucose,Whole Blood 138 mg/dL (75-99)
[2019-04-28] MEDS ORDERED: ACETAMINOPHEN TAB 325 MG TAB PO STA (22:52)
--- NOTE | 2019-04-28 22:59 | HP ---
HISTORY AND PHYSICAL CHIEF COMPLAINT: Chest pain. HISTORY OF PRESENT ILLNESS: This lady was just discharged several days ago and now has come back to the emergency room. She repeatedly returns to the emergency room after she has been discharged. She has been being treated for pancreatitis secondary to hypertriglyceridemia and she is managed with insulin. She has had numerous evaluations and workups for chest pain, including cardiac cath which was normal recently. She came back complaining of the same issues. She will be admitted as an OBV and we will look into providing guardianship. REVIEW OF SYSTEMS: She has had no fever, chills, headache, vomiting, shortness of breath, cough, hematemesis, melena, hematochezia, diarrhea, dysuria, frequency, urgency, etc. Past medical history, family history, and personal and social histories are otherwise unchanged. PHYSICAL EXAMINATION: Blood pressure is 113/65 with a pulse of 74, and she is afebrile. In general she appears to be obese, in no acute distress. Skin color is normal. Skin is warm and dry. Lymph nodes are not enlarged. Head, ears, eyes, nose, mouth and throat are normal. She is not dehydrated. Neck veins are not distended. Carotids are normal. The chest is clear to auscultation and percussion. Cardiac exam demonstrates normal sinus rhythm and no murmurs or extra sounds. The abdomen is protuberant, soft and nontender without any masses or visceromegaly. Bowel sounds are present. Extremities are normal. Neurologically she is intact. ADMITTING DIAGNOSES: She is admitted to the hospital with the diagnoses: 1. Atypical chest pain. 2. Pancreatitis. 3. Hypertriglyceridemia. 4. Insulin-dependent diabetes mellitus. PLAN: 1. Bed rest. 2. IV fluids. 3. Apply for guardianship. MMODL / IJN: [id number] /
[2019-04-29] MEDS: NITROGLYCERIN OINT 1 INCH/GM PACKET TOPICAL SCH ×3 (00:13→12:18)
[2019-04-29] MEDS ORDERED: ONDANSETRON 4 MG TAB PO STA (03:49)
[2019-04-29 03:55] LABS: Cholesterol 157 mg/dL (<200); HDL Cholesterol 25 mg/dL (40-60); LDL Cholesterol,Calculated 71 mg/dL (0-99); Triglycerides 305 mg/dL (<150)
[2019-04-29] MEDS ORDERED: ACETAMINOPHEN TAB 325 MG TAB PO STA (05:32)
[2019-04-29 06:39] LABS: Glucose,Whole Blood 136 mg/dL (75-99)
[2019-04-29] MEDS ORDERED: ASPIRIN 325 MG TAB PO SCH (09:00)
[2019-04-29] MEDS: INSULIN ASPART (NovoLOG) 100 UNIT/ML VIAL SQ SCH ×3 (09:10→17:19)
[2019-04-29] MEDS: LISINOPRIL 5 MG TAB PO SCH (09:29)
[2019-04-29] MEDS: PANTOPRAZOLE 40 MG TABLET PO SCH (09:29)
[2019-04-29] MEDS: FERROUS SULFATE 325 MG TAB PO SCH ×2 (09:29→20:30)
[2019-04-29] MEDS: FENOFIBRATE 160 MG TAB PO SCH (09:29)
--- NOTE | 2019-04-29 11:18 | CT ---
EXAMINATION TYPE: CT abdomen pelvis w con DATE OF EXAM: 04/29/2019 HISTORY: Chest pain, abdominal pain and chronic pancreatitis CT DLP: 1721.4mGycm Automated Exposure Control for Dose Reduction was Utilized. CONTRAST: CT scan of the abdomen and pelvis is performed without oral but with IV Contrast, patient injected wi th 100 ml mL of Isovue 300. COMPARISON: CT abdomen and pelvis January 11, 2019 FINDINGS: LUNG BASES: No significant abnormality is appreciated. LIVER/GB: Liver is diffusely low dense relative to spleen consistent with diffuse fatty infiltration. PANCREAS: Pancreas is overall normal and stable in size with fairly homogeneous enhancement. No abnor mal surrounding fat stranding or fluid is present. No areas of nonenhancement noted.. SPLEEN: No significant abnormality is seen. ADRENALS: No significant abnormality is seen. KIDNEYS: Simple appearing 1.5 cm thin-walled cyst lower pole level left kidney axial image 39 series 301 redemonstrated. Symmetric cortical medullary uptake and excretion without hydronephrosis noted bi laterally. Some lobulation to renal cortex bilaterally redemonstrated. BOWEL: No suspicious small and large bowel dilatation. Moderate to severe prominence of fecal materi al in the rectum on current study. Normal-appearing appendix and cecum. UTERUS/ADNEXA: Anteverted uterus. Left ovary is 2.4 cm low dense lesion along the defects limits 73. Reflect prominent follicle or simple small ovarian cyst. Just posterior superior to this is displaced tubal ligation clip. Additional displaced tubal ligation clip into the posterior right pelvis noted axial image 70 on current study similar in position to prior study. LYMPH NODES: No greater than 1cm abdominal or pelvic lymph nodes are appreciated. OSSEOUS STRUCTURES: No significant abnormality is seen. OTHER: Stable small fat-containing umbilical hernia axial image 46. IMPRESSION: 1. No CT evidence for complication related to acute pancreatitis. 2. New moderate to severe rectal fecal stasis. Overall nonobstructive bowel gas pattern. 3. No new or acute findings otherwise identified.
[2019-04-29 11:34] LABS: Glucose,Whole Blood 120 mg/dL (75-99)
[2019-04-29] MEDS: ACETAMINOPHEN TAB 325 MG TAB PO PRN ×2 (12:36→20:30)
--- NOTE | 2019-04-29 12:43 | P.CRDCN ---
History of Present Illness History of present illness: HISTORY OF PRESENTING ILLNESS This is a pleasant 48-year-old female past medical history significant for hypertension, dyslipidemia, diabetes mellitus and former chronic. 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 She underwent cardiac catheterization 04/06/2019 revealing normal coronary arteries. This was performed by Dr. Laurent. We have been asked to see in consultation for chest pain. She has had frequent admissions to the hospital for chest pain starting in February 2019. There's been no evidence of heart attack and heart catheterization was ultimately done showing normal coronary arteries. She was here over the weekend with chest pain and discharged on Saturday. She came back to the hospital yesterday with symptoms of ongoing chest and abdominal discomfort. She states the pain starts in her stomach feels like an aching sensation radiates up into the chest in the midsternal region. There is no radiation through to the back, down the arm, into the neck or jaw. She denies associated shortness of breath, dizziness or palpitations. She does have intermittent episodes of nausea at times her pain is exacerbated by deep inspiration. DIAGNOSTICS EKG reveals sinus mechanism with T-wave inversions in the anterolateral leads. Chest xray negative for an acute cardiopulmonary process. Laboratory reviewed, WBC 10, hemoglobin 12.7, platelets 556, sodium 146, potassium 4.5, creatinine 0.84, cardiac enzymes negative 3, triglycerides 305, LDL 71, amylase 44 and lipase 191. Current cardiac medications include atorvastatin 40 mg daily, lisinopril 5 mg daily and fenofibrate 160 mg daily. Full echocardiogram obtained March 2019 revealed preserved LV systolic function with ejection fraction 55-60%. Limited echocardiogram was also obtai johnathan in March again revealing preserved LV systolic function with ejection fraction 55-60% with atypical septal wall motion. REVIEW OF SYSTEMS At the time of my exam: CONSTITUTIONAL: Denies fever or chills. CARDIOVASCULAR: Complains of pleuritic chest pain. Denies chest pain, shortness of breath, orthopnea, PND or palpitations. RESPIRATORY: Denies cough. GASTROINTESTINAL: Complains of abdominal pain and nausea. Denies diarrhea, constipation or vomiting. MUSCULOSKELETAL: Denies myalgias. NEUROLOGIC: Denies numbness, tingling or weakness. ENDOCRINE: Denies fatigue, weight change, polydipsia or polyurina. GENITOURINARY: Denies burning, hematuria or urgency with micturation. HEMATOLOGIC: Denies history of anemia or bleeding. PHYSICAL EXAMINATION Blood pressure 121/79 heart rate 50 afebrile and maintaining oxygen saturation on room air. CONSTITUTIONAL: No apparent distress. HEENT: Head is normocephalic. Pupils are equal, round. Sclerae anicteric. Mucous membranes of the mouth are moist. No JVD. No carotid bruit. CHEST EXAMINATION: Lungs are clear to auscultation. No chest wall tenderness is noted on palpation or with deep breathing. HEART EXAMINATION: Regular rate and rhythm. S1, S2 heard. No murmurs, gallops or rub. ABDOMEN: Soft, nontender. Positive bowel sounds. EXTREMITIES: 2+ peripheral pulses, no lower extremity edema and no calf tenderness. NEUROLOGIC EXAMINATION: Patient is awake, alert and oriented x3. ASSESSMENT Pleuritic chest pain, atypical for angina. An acute coronary event has been ruled out. Abdominal pain and nausea Hypertension Dyslipidemia Diabetes mellitus PLAN Obtain CT of the abdomen and pelvis. Recommend GI evaluation. Repeat limited echo to assess for wall motion abnormalities given EKG abnormality. Ongoing medical management and evaluation. Thank you kindly for this consultation. Nurse Practitioner note has been reviewed, I agree with a documented findings and plan of care. Patient was seen and examined. Past Medical History Past Medical History: Diabetes Mellitus, GERD/Reflux, Hyperlipidemia, Syncope Additional Past Medical History / Comment(s): Pancreatitis twice, NIDDM type II, UTI, chronic low back pain, bulging discs, dental abscesses in past. History of Any Multi-Drug Resistant Organisms: None Reported Past Surgical History: Tubal Ligation Additional Past Surgical History / Comment(s): Age 7 had VSD repair Past Anesthesia/Blood Transfusion Reactions: No Reported Reaction Smoking Status: Current every day smoker - Past Family History Mother Family Medical History: No Reported History Additional Family Medical History / Comment(s): Mother was healthy. She is , pt cannot recall cause of . Father Family Medical History: Pneumonia Additional Family Medical History / Comment(s): Father at the age of 67yrs from pneumonia Medications and Allergies Home Medications Medication Instructions Recorded Confirmed Type Esomeprazole Magnesium [NexIUM] 20 mg PO DAILY 01/15/19 04/28/19 History Ferrous Sulfate [Iron (65 MG 325 mg PO BID #60 tab 02/09/19 04/28/19 Rx Elemental)] INSULIN ASPART (NovoLOG) [NovoLOG 6 unit SQ AC-TID #1 vial 02/10/19 04/28/19 Rx (formulary)] Fenofibrate [Lofibra] 160 mg PO DAILY #30 tab 03/23/19 04/28/19 Rx Ondansetron Odt [Zofran ODT] 4 mg PO Q8HR PRN #12 tab 04/10/19 04/28/19 Rx Insulin Detemir (Levemir) [Levemir] 20 unit SQ HS@1900 04/11/19 04/28/19 History Lisinopril [Zestril] 5 mg PO DAILY #30 tab 04/15/19 04/28/19 Rx Meclizine [Antivert] 12.5 mg PO Q6H PRN #30 tablet 04/19/19 04/28/19 Rx Atorvastatin [Lipitor] 40 mg PO DAILY 04/25/19 04/28/19 History traMADol HCl [Ultram] 1 tab PO Q6H PRN 04/25/19 04/28/19 History Allergies Allergy/AdvReac Type Severity Reaction Status Date / Time No Known Allergies Allergy Verified 04/28/19 08:21 Physical Exam Vitals: Vital Signs Temp Pulse Pulse Resp BP BP Pulse Ox 04/29/19 07:59 51 L 18 04/29/19 07:00 98.1 F 51 L 18 118/78 98 04/29/19 03:52 98.5 F 56 L 18 121/71 95 04/28/19 23:58 98.6 F 53 L 18 119/67 96 04/28/19 19:44 98.9 F 59 L 18 133/76 95 04/28/19 16:00 61 18 04/28/19 14:48 61 18 04/28/19 14:43 98.9 F 61 18 125/75 97 04/28/19 14:16 98.1 F 04/28/19 14:00 71 17 129/84 96 04/28/19 13:00 68 17 117/72 96 04/28/19 12:00 65 18 125/74 94 L 04/28/19 11:00 68 15 134/73 95 04/28/19 10:00 66 15 131/46 95 04/28/19 09:18 57 L 18 131/46 95 Intake and Output 0104/29/19 04/29/19 22:59 06:59 14:59 Other: Voiding Method Toilet Toilet Toilet # Voids 1 1 Weight 97.069 kg Results 04/28/19 08:27 04/28/19 08:27 Cardiac Enzymes 04/28/19 04/28/19 04/28/19 Range/Units 08:27 08:27 14:27 AST 28 (14-36) U/L Troponin I <0.012 <0.012 (0.000-0.034) ng/mL 04/28/19 Range/Units 20:36 AST (14-36) U/L Troponin I <0.012 (0.000-0.034) ng/mL Coagulation 04/28/19 Range/Units 08:27 PT 9.9 (9.0-12.0) sec APTT 23.1 (22.0-30.0) sec Lipids 04/28/19 Range/Units 08:27 Triglycerides 305 H (<150) mg/dL Cholesterol 157 (<200) mg/dL HDL Cholesterol 25 L (40-60) mg/dL CBC 04/28/19 Range/Units 08:27 WBC 10.0 (3.8-10.6) k/uL RBC 4.86 (3.80-5.40) m/uL Hgb 12.7 (11.4-16.0) gm/dL Hct 39.5 (34.0-46.0) % Plt Count 556 H (150-450) k/uL Comprehensive Metabolic Panel 04/28/19 Range/Units 08:27 Sodium 146 H (137-145) mmol/L Potassium 4.5 (3.5-5.1) mmol/L Chloride 107 (98-107) mmol/L Carbon Dioxide 27 (22-30) mmol/L BUN 20 H (7-17) mg/dL Creatinine 0.84 (0.52-1.04) mg/dL Glucose 139 H (74-99) mg/dL Calcium 9.3 (8.4-10.2) mg/dL AST 28 (14-36) U/L ALT 21 (4-34) U/L Alkaline Phosphatase 104 (38-126) U/L Total Protein 7.5 (6.3-8.2) g/dL Albumin 4.3 (3.5-5.0) g/dL Current Medications Generic Name Dose Route Start Last Admin Trade Name Freq PRN Reason Stop Dose Admin Aspirin 325 mg 04/29/19 09:00 Aspirin PO DAILY [facility] Fenofibrate 160 mg 04/29/19 09:00 Lofibra PO DAILY [facility] Ferrous Sulfate 325 mg 04/29/19 09:00 Feosol PO BID [facility] Insulin Aspart 6 unit 04/29/19 07:30 Novolog SQ AC-TID [facility] Insulin Detemir 20 unit 04/29/19 19:00 Levemir SQ HS@1900 [facility] Lisinopril 5 mg 04/29/19 09:00 Zestril PO DAILY [facility] Nitroglycerin 0.4 mg 04/28/19 10:53 Nitrostat SUBLINGUAL Q5M PRN Chest Pain Nitroglycerin 1 inch 04/28/19 12:00 04/29/19 05:00 Nitro-Bid Oint TOPICAL Not Given Q6HR [facility] Pantoprazole Sodium 40 mg 04/29/19 09:00 Protonix PO DAILY [facility] Intake and Output 04/28/19 04/29/19 04/29/19 22:59 06:59 14:59 Other: Voiding Method Toilet Toilet Toilet # Voids 1 1 Weight 97.069 kg 04/28/19 08:27 04/28/19 08:27
[2019-04-29 16:33] LABS: Glucose,Whole Blood 195 mg/dL (75-99)
[2019-04-29] MEDS ORDERED: INSULIN DETEMIR (LEVEMIR) 100 UNIT/ML SYR SQ SCH (19:00)
[2019-04-29 19:35] LABS: Glucose,Whole Blood 153 mg/dL (75-99)
[2019-04-29] MEDS ORDERED: MELATONIN 5 MG TABLET PO ONE (23:19)
--- NOTE | 2019-04-29 23:56 | PN ---
PROGRESS NOTE CHIEF COMPLAINT: Chest pain. HISTORY OF PRESENT ILLNESS: This lady is doing fairly well and chest pain is gone. She has had no epigastric pain. PHYSICAL EXAMINATION: Chest is clear. Cardiac exam is normal. Abdomen is protuberant, soft, nontender. IMPRESSION: 1. Chest pain, noncardiac. 2. Pancreatitis. 3. Hypertriglyceridemia. 4. Pancreatitis. PLAN: She has been referred to Psychiatry for an evaluation to determine if she is medically incompetent. I feel that she is. She continually is coming back into the emergency room and there is nothing wrong. MMODL / IJN: [id number] /
--- NOTE | 2019-04-30 06:15 | CONS ---
CONSULTATION DATE OF DICTATION: 04/29/2019 REASON FOR CONSULTATION: Chest pain and epigastric pain. HISTORY OF PRESENT ILLNESS: The patient is a 48-year-old pleasant white female with a history of acute recurrent pancreatitis secondary to hypertriglyceridemia, for which she was admitted to the hospital 2 weeks ago and was discharged home. She presents to the emergency room on Saturday, which was 2 days ago, with severe chest pain. It lasted for a few hours, and she was discharged home. She came back yesterday evening again with the same chest pain and this time was admitted to the hospital. Cardiology was consulted, and she was just cleared by Cardiology. She underwent a cardiac catheterization in March 2019 that was normal. She does complain of heartburn intermittently, but not necessarily has any heartburn during the episodes of chest pain. Today she is symptom free. She denies any nausea or vomiting. She is complaining of more epigastric discomfort. At the time of admission to the hospital, lipase was normal. CT of the abdomen and pelvis was done, which showed normal-appearing pancreas with no evidence of acute pancreatitis. PAST MEDICAL HISTORY: Her past medical history is significant for acute recurrent pancreatitis secondary to hypertriglyceridemia, history of hypertension, diabetes mellitus, and gastroesophageal reflux disease. MEDICATIONS AT HOME: Fenofibrate, Ultram, Antivert, Zestril, Lipitor, Zofran, Levemir, NovoLog, iron, and Pepcid. ALLERGIES: None. SOCIAL HISTORY: No smoking, no alcohol use. FAMILY HISTORY: Unremarkable. REVIEW OF SYSTEMS: CARDIOPULMONARY: No chest pain, no shortness of breath. GENITOURINARY: No dysuria or hematuria. MUSCULOSKELETAL: Unremarkable. SKIN: Unremarkable. ENDOCRINE: Unremarkable. PSYCHIATRIC: Unremarkable. NEUROLOGY: Unremarkable. ENT/VISION: Unremarkable. CONSTITUTIONAL: No recent weight loss. No fever, chills, night sweats. PHYSICAL EXAMINATION: She appears comfortable. No apparent distress. Vital signs are stable. Blood pressure 121/79, pulse rate 82 per minute, and afebrile. HEENT: Examination unremarkable. Conjunctivae pink. Sclerae anicteric. Oral cavity no lesions. NECK: No JVD or lymph node enlargement. CHEST: Clear to auscultation. HEART: Regular rate and rhythm. ABDOMEN: Soft. Bowel sounds are positive with mild tenderness in the epigastric area. EXTREMITIES: No pedal edema. SKIN: No rashes. NEUROLOGIC: Alert and oriented x 3. No focal deficits. LABS: Labs from yesterday: WBC 10, hemoglobin 12.7, platelets normal. Basic metabolic panel is normal. Amylase and lipase are normal. Triglycerides 305. ALT, AST, T-bilirubin and alkaline phosphatase are normal. IMPRESSION: 1. Atypical chest pain on and off for the last few weeks' duration. Has symptoms on an intermittent basis. Cardiac workup was negative. It is likely that she may be having gastroesophageal reflux causing intermittent atypical chest pain. 2. Acute recurrent pancreatitis with normal lipase during this hospitalization. The CT of the abdomen also showed normal-appearing pancreas. Clinically and on imaging studies, no evidence of acute pancreatitis. 3. History of hypertriglyceridemia. 4. History of gastroesophageal reflux disease. 5. Long-standing history of diabetes mellitus. RECOMMENDATIONS: 1. We will give her a trial of Protonix 40 mg twice daily for possible gastroesophageal reflux disease causing atypical chest pain. 2. Briefly educated about anti-reflux measures. 3. Patient can be discharged home with outpatient followup in a month; and based on her symptoms, we will consider further endoscopic workup as needed. 4. Continue to control hypertriglyceridemia. 5. Small frequent meals. 6. She can be discharged home with outpatient followup in 4 weeks. Thank you for this consultation. MMJOHANL / IJN: [id number] /
[2019-04-30 06:54] LABS: Glucose,Whole Blood 124 mg/dL (75-99)
[2019-04-30] MEDS: ACETAMINOPHEN TAB 325 MG TAB PO PRN (06:57)
[2019-04-30 07:53] VITALS: RESP 18
[2019-04-30] MEDS: FENOFIBRATE 160 MG TAB PO SCH (08:14)
[2019-04-30] MEDS: FERROUS SULFATE 325 MG TAB PO SCH (08:14)
[2019-04-30] MEDS: LISINOPRIL 5 MG TAB PO SCH (08:14)
[2019-04-30] MEDS: INSULIN ASPART (NovoLOG) 100 UNIT/ML VIAL SQ SCH ×2 (08:14→12:10)
[2019-04-30] MEDS: PANTOPRAZOLE 40 MG TABLET PO SCH (08:14)
[2019-04-30 11:11] VITALS: BP 125/76; PULSE 51; TEMP 98.6
[2019-04-30 11:35] LABS: Glucose,Whole Blood 152 mg/dL (75-99)
--- NOTE | 2019-04-30 12:46 | ECHOF ---
Referral Reason:lv function, ekg changes MEASUREMENTS -------- HEIGHT: 152.4 cm WEIGHT: 97.1 kg BP: 121/79 LAESV Index (A-L): 25.99 ml/m MV E Logan: 0.60 m/s MV DecT: 406 ms MV A Logan: 0.79 m/s MV E/A Ratio: 0.76 RAP: 5.00 mmHg RVSP: 28.48 mmHg FINDINGS -------- Sinus rhythm. Resting bradycardia (HR<60bpm). This was a technically difficult study with suboptimal apical views. Overall left ventricular systolic function is normal with, an EF between 55 - 60 %. 5 ml of Lumason was utilized for enhancement of images. Interatrial and interventricular septum intact. Mild tricuspid regurgitation present. Right ventricular systolic pressure is normal at < 35 mmHg. The right ventricular systolic pressure, as measured by Doppler, is 28.48mmHg. There is no pericardial effusion. CONCLUSIONS -------- 1. Sinus rhythm. 2. Resting bradycardia (HR<60bpm). 3. This was a technically difficult study with suboptimal apical views. 4. Overall left ventricular systolic function is normal with, an EF between 55 - 60 %. 5. 5 ml of Lumason was utilized for enhancement of images. 6. Interatrial and interventricular septum intact. 7. Mild tricuspid regurgitation present. 8. Right ventricular systolic pressure is normal at < 35 mmHg. 9. The right ventricular systolic pressure, as measured by Doppler, is 28.48mmHg. 10. There is no pericardial effusion. ELECTRIC BLANKET WIRER: Ursula Castellanos RDCS
--- NOTE | 2019-04-30 23:45 | CONS ---
CONSULTATION DATE OF SERVICE: 04/30/2019. PURPOSE FOR CONSULTATION: Evaluate for competency and concern regarding frequent general hospital admissions. HISTORY OF PRESENTING ILLNESS: The patient is a 48-year-old female. She was admitted to Observation after returning to the emergency room following a recent hospitalization and discharge. She has had recent treatment for pancreatitis secondary to hypertriglyceridemia. It is noted that a significant concern is that the patient has been presenting to the ER quite frequently. Just in the month of April she has had 9 visits to the ED, including 2 visits on one day. In March she had 3 visits from the middle of the month on. She had 2 visits in February, 4 visits in January; many of the visits seemed to be for only vague complaints without any indication of an emergency or urgent medical need. When I talked to the patient about this, she said that she was not always sure why she comes to the emergency room, though she feels that she is safer when she comes here. She acknowledges that she lives with her boyfriend and that much of the time her boyfriend will be quite reluctant to having her go to the hospital. She says much of the time she will ignore what her boyfriend says and call EMS. She will complain of chest pain, which she is aware will typically get her assessed. She was unclear as to whether or not she makes an effort to contact her primary care physician, Dr. Cerda, prior to seeking out trips to the emergency room. The patient indicates that she has not had a significant past history of psychiatric issues. She has not been on psychotropic medications in the past. She has not been involved in any mental health services. She says that in terms of her relationship with her boyfriend, she feels it is stable. She does not see significant stress issues at home or other areas of her life that might be contributing to some degree of distress she might feel. She does acknowledge that she does not do much outside the home. She said that she does have an interest in crafts and has considered joining the [employer], though she has not made an effort in that direction. She said she would be able to get to the [employer] either by walking or a bus. She says she is comfortable taking the bus in the community. When I asked her about her medications, she was able to tell me that she takes insulin, including 1 IM dose 3 times a day and another dose once a day in the evening. She said that she takes Lipitor for cholesterol. She stated she was on a blood pressure medicine, though she could not remember the name. She said she also takes an iron tablet; she could not recall the dose. She was able to give me some details relating to issues leading to her coming into the hospital. She could also tell me about the activities that have taken place since she has been in the hospital. MENTAL STATUS: Patient lay in bed with her head slightly up. She gave fair eye contact. Psychomotor activity was slowed. Speech was monotone and soft. She answered questions with one- or two-word responses. She did not say a lot. She was not spontaneous or interactive. Her affect was blunted. She had a calm, quiet manner. She did not appear to be significantly distressed. There was no indication for thought disorder. On cognitive exam, she could tell me the day and date without difficulty. She could give me the days of the week in reverse order readily. She was able to tell me about some community activities. ASSESSMENT: This 48-year-old female is diagnosed with adjustment disorder with mixed emotional features. In regard to competency issues, the patient is oriented and alert. It does appear that the patient has limited judgment in regard to her frequent visits to the emergency department. She is not very aware of the risks that she puts herself in by coming to the hospital. She does not have much insight into the seriousness of the situation that she is in. The patient did say that she would be willing to make some efforts to get support around some of these issues so that she could have more appropriate general health care without coming to seek emergency services for non- emergency concerns. She said that her boyfriend was visiting a friend today nearby and would be able to come into the hospital for a family meeting as part of discharge planning. The patient agreed that she needs more home activities as outlets for her that might allow her to feel more comfortable in her community setting. I indicated to Nursing that I recommend that Social Work set up a family meeting with the patient and her boyfriend prior to discharge. Referral to Community Mental Health might be an inappropriate outlook for some supportive psychotherapy. Getting involved in some supportive psychotherapy would be an important first step prior to any consideration regarding interventions such as guardianship. The patient will be discharged today. MMODL / IJN: [id number] /
--- NOTE | 2019-05-01 05:39 | DS ---
DISCHARGE SUMMARY CHIEF COMPLAINT: Chest pain. HISTORY OF PRESENT ILLNESS AND PHYSICAL EXAM: Details of this lady's history and physical can be found in the initial workup. LABORATORY STUDIES: While she was in the hospital she had laboratory studies, details of which can be found in the laboratory section of her chart. COURSE IN THE HOSPITAL: After admission, she was placed on bedrest and placed on intravenous fluids. Serial EKGs and enzymes were normal. She was referred to Psychiatry with the idea that she should have an assessment regarding psychiatric and mental competency in that she returns to the emergency room as soon as she is discharged complaining of chest pain. Psychiatry was not supportive and it was felt the patient could be sent home. She will go home on her usual diet and activity and she will be brought into the office as soon as possible and we will make every effort to help her stay home. FINAL DIAGNOSES: 1. Chest pain, noncardiac. 2. Depression. 3. Personality disorder. 4. Insulin-dependent diabetes mellitus. 5. Pancreatitis. 6. Hypertriglyceridemia. OPERATIONS: None. CONSULTATION: Cardiology. She is improved. MMPAULA / EVELINN: [id number] /
== END 2019-04-30 13:28 | disposition home or self-care (01) ==
LOC: EC 08:13 → 1SOBS 11:05
PROVIDERS: ADMIT Family Medicine; ATTEND Family Medicine
DX: R07.89 Other chest pain (principal); R07.81 Pleurodynia; F32.9 Major depressive disorder, single episode, unspecified; F60.9 Personality disorder, unspecified; E11.9 Type 2 diabetes mellitus without complications; K85.90 Acute pancreatitis without necrosis or infection, unspecified; E78.1 Pure hyperglyceridemia; F17.200 Nicotine dependence, unspecified, uncomplicated; E78.00 Pure hypercholesterolemia, unspecified; K21.9 Gastro-esophageal reflux disease without esophagitis; E78.5 Hyperlipidemia, unspecified; R62.50 Unspecified lack of expected normal physiological development in childhood; G89.29 Other chronic pain; M54.5 Low back pain; M51.9 Unspecified thoracic, thoracolumbar and lumbosacral intervertebral disc disorder; F43.29 Adjustment disorder with other symptoms; K59.8 Other specified functional intestinal disorders; I51.7 Cardiomegaly; Z79.899 Other long term (current) drug therapy; Z79.4 Long term (current) use of insulin; Z79.891 Long term (current) use of opiate analgesic; Z87.440 Personal history of urinary (tract) infections; Z86.19 Personal history of other infectious and parasitic diseases; Z98.51 Tubal ligation status; Z87.74 Personal history of (corrected) congenital malformations of heart and circulatory system; Z82.5 Family history of asthma and other chronic lower respiratory diseases
CPT/HCPCS: 93005 ×2; 99285; 36415; 85379; 80061; 80053; 82150; 83690; 83735; 84484; 85025; 85610; 85730; 71046; 74177; G0378 ×3; C8924; Q9950; Q9967; 93308

== ENCOUNTER 2019-05-11 19:04 | Observation (INO) | payer MEDICARE, OTHER ==
[2019-05-11] MEDS ORDERED: ASPIRIN 81 MG PO STA (19:23)
--- NOTE | 2019-05-11 19:29 | XR ---
EXAMINATION TYPE: XR chest 2V DATE OF EXAM: 05/11/2019 COMPARISON: 04/28/2019 HISTORY: Chest pain TECHNIQUE: 2 views FINDINGS: Heart is normal. Lungs are clear of consolidation. There is no pleural effusion. There is m ild subsegmental atelectasis left midlung. There are chest leads. IMPRESSION: Minimal subsegmental atelectasis. Normal heart.
[2019-05-11 19:48] LABS: Anisocytosis Slight; Basophils # (A) 0.2 k/uL (0-0.2); Basophils % (A) 2 %; Eosinophils # (A) 0.3 k/uL (0-0.7); Eosinophils % (A) 3 %; HCT 39.4 % (34.0-46.0); HGB 12.5 gm/dL (11.4-16.0); Lymphocytes # (A) 2.7 k/uL (1.0-4.8); Lymphocytes % (A) 28 %; MCH 25.5 pg (25.0-35.0); MCHC 31.7 g/dL (31.0-37.0); MCV 80.5 fL (80.0-100.0); Mean Platelet Volume 6.5; Microcytosis Slight; Monocytes # (A) 0.5 k/uL (0-1.0); Monocytes % (A) 5 %; Neutrophils # (A) 5.9 k/uL (1.3-7.7); Neutrophils % (A) 60 %; Platelet Count 535 k/uL (150-450); RBC 4.89 m/uL (3.80-5.40); WBC 9.8 k/uL (3.8-10.6)
--- NOTE | 2019-05-11 19:54 | ED ---
Chest Pain HPI - General Chief Complaint: Chest Pain Stated Complaint: chest & back pain Time Seen by Provider: 05/11/19 19:04 Source: patient, EMS, RN notes reviewed, old records reviewed Mode of arrival: EMS Limitations: no limitations - History of Present Illness Initial Comments: This is a 48-year-old female with a history of multiple admissions for chest pain history of pancreatitis apical ischemia personality disorder depression and schizoaffective disorder who presents with complaints of chest back and abdominal pain that started earlier today. She states the chest she felt pressure-like [id number] in severity. No associated shortness of breath no nausea vomiting diarrhea. She was brought in by EMS. Of note she recently was admitted for evaluation and was discharged on 04/28/19. At that time a workup was done which was negative. Patient is a smoker. She denies any drugs or alcohol at this time no other modifying factors. MD Complaint: chest pain, other - Related Data Home Medications Medication Instructions Recorded Confirmed Insulin Detemir (Levemir) [Levemir] 20 unit SQ HS@1900 04/11/19 04/28/19 Atorvastatin [Lipitor] 40 mg PO DAILY 04/25/19 04/28/19 traMADol HCl [Ultram] 1 tab PO Q6H PRN 04/25/19 04/28/19 Previous Rx's Medication Instructions Recorded Ferrous Sulfate [Iron (65 MG 325 mg PO BID #60 tab 02/09/19 Elemental)] INSULIN ASPART (NovoLOG) [NovoLOG 6 unit SQ AC-TID #1 vial 02/10/19 (formulary)] Fenofibrate [Lofibra] 160 mg PO DAILY #30 tab 03/23/19 Ondansetron Odt [Zofran ODT] 4 mg PO Q8HR PRN #12 tab 04/10/19 Lisinopril [Zestril] 5 mg PO DAILY #30 tab 04/15/19 Meclizine [Antivert] 12.5 mg PO Q6H PRN #30 tablet 04/19/19 Pantoprazole [Protonix] 40 mg PO DAILY #30 tablet. 04/29/19 Allergies Allergy/AdvReac Type Severity Reaction Status Date / Time No Known Allergies Allergy Verified 04/28/19 08:21 Review of Systems ROS Statement: Those systems with pertinent positive or pertinent negative responses have been documented in the HPI. ROS Other: All systems not noted in ROS Statement are negative. EKG Findings - EKG Results: EKG: interpreted by GURMEETD, sinus rhythm (Sinus rhythm a 69. Interval 170 QRS duration 82 QT since QTC 370/45 LVH with repolarization abnormality nonspecific septal changes with poor R-wave progression this is consistent with one dated 04/28/19 as well as one submitted by EMS today.) Past Medical History Past Medical History: Diabetes Mellitus, GERD/Reflux, Hyperlipidemia, Syncope Additional Past Medical History / Comment(s): Pancreatitis twice, NIDDM type II, UTI, chronic low back pain, bulging discs, dental abscesses in past. History of Any Multi-Drug Resistant Organisms: None Reported Past Surgical History: Tubal Ligation Additional Past Surgical History / Comment(s): Age 7 had VSD repair Past Anesthesia/Blood Transfusion Reactions: No Reported Reaction Past Psychological History: No Psychological Hx Reported Smoking Status: Current every day smoker Past Alcohol Use History: None Reported Past Drug Use History: None Reported - Past Family History Mother Family Medical History: No Reported History Additional Family Medical History / Comment(s): Mother was healthy. She is , pt cannot recall cause of . Father Family Medical History: Pneumonia Additional Family Medical History / Comment(s): Father at the age of 67yrs from pneumonia General Exam - General Exam Comments Initial Comments: This is a well-developed well-nourished awake alert oriented 3 female Limitations: no limitations General appearance: alert, in no apparent distress Head exam: Present: atraumatic, normocephalic, normal inspection Eye exam: Present: normal appearance, PERRL, EOMI. Absent: scleral icterus, conjunctival injection, periorbital swelling ENT exam: Present: normal exam, mucous membranes moist Neck exam: Present: normal inspection, full ROM, other (No stridor JVD or bruits). Absent: tenderness, meningismus, lymphadenopathy Respiratory exam: Present: normal lung sounds bilaterally. Absent: respiratory distress, wheezes, rales, rhonchi, stridor Cardiovascular Exam: Present: regular rate, normal rhythm, normal heart sounds. Absent: systolic murmur, diastolic murmur, rubs, gallop, clicks GI/Abdominal exam: Present: soft, normal bowel sounds, other (Obese abdomen). Absent: distended, tenderness, guarding, rebound, rigid Rectal exam: Present: deferred Extremities exam: Present: normal inspection, full ROM, normal capillary refill. Absent: tenderness, pedal edema, joint swelling, calf tenderness Back exam: Present: normal inspection Neurological exam: Present: alert, oriented X3, CN II-XII intact Psychiatric exam: Present: normal mood, flat affect Skin exam: Present: warm, dry, intact, normal color. Absent: rash Course Vital Signs 05/11/19 05/11/19 05/11/19 19:05 19:07 20:00 Temperature 99.3 F Pulse Rate 71 66 Pulse Rate [ 63 Protective Services Case Worker ] Respiratory 18 19 Rate Blood Pressure 154/82 163/94 O2 Sat by Pulse 98 97 Oximetry Chest Pain MDM - MDM Imaging was reviewed no acute findings patient does feel somewhat improved however her lipase level is elevated consistent with prior episodes of pancreatitis she normally runs upward after initial presentation I did discuss the case with Dr. Cerda the patient be admitted for IV fluids and further e valuation Disposition Clinical Impression: Acute pancreatitis, Atypical chest pain Disposition: ADMITTED IP TO THIS [facility] Condition: Fair Referrals: Guillermo Cerda MD [Primary Care Provider] - 1-2 days
[2019-05-11] MEDS ORDERED: ONDANSETRON 4 MG/2 ML VIAL IVP STA (19:56)
[2019-05-11 19:58] LABS: INR 0.9 (<1.2); Partial Thromboplastin Time 22.5 sec (22.0-30.0); Prothrombin Time 9.5 sec (9.0-12.0)
[2019-05-11 20:01] LABS: ALT 20 U/L (4-34); AST 25 U/L (14-36); African American GFR (CKD) >90 (>60 ml/min/1.73 sqM); Albumin 4.1 g/dL (3.5-5.0); Alkaline Phosphatase 113 U/L (38-126); Anion Gap 10 mmol/L; Blood Urea Nitrogen 15 mg/dL (7-17); Calcium 9.1 mg/dL (8.4-10.2); Carbon Dioxide 23 mmol/L (22-30); Chloride 107 mmol/L (98-107); Creatine Kinase 47 U/L (30-135); Glucose 225 mg/dL (74-99); Magnesium 1.6 mg/dL (1.6-2.3); Non-African American GFR(CKD) >90 (>60 ml/min/1.73 sqM); Potassium 4.2 mmol/L (3.5-5.1); Sodium 140 mmol/L (137-145); Total Bilirubin 0.3 mg/dL (0.2-1.3); Total Protein 7.2 g/dL (6.3-8.2)
[2019-05-11 20:08] LABS: Appearance,Urine Clear (Clear); Bilirubin,Urine Negative (Negative); Blood,Urine Negative (Negative); Color,Urine Yellow; Glucose,Urine (UA) Negative (Negative); Ketones,Urine Negative (Negative); Leukocyte Esterase,Urine Negative (Negative); Mucus,Urine Rare /hpf; Nitrite,Urine Negative (Negative); PH, Urine 5.5 (5.0-8.0); Protein,Urine 1+ (Negative); RBC,Urine <1 /hpf (0-5); Specific Gravity,Urine 1.016 (1.001-1.035); Squamous Epithelial Cell,Urine 2 /hpf (0-4); Urobilinogen,Urine <2.0 mg/dL (<2.0); WBC,Urine 2 /hpf (0-5)
[2019-05-11] MEDS ORDERED: ONDANSETRON 4 MG/2 ML VIAL IVP PRN (21:22)
[2019-05-11] MEDS ORDERED: NALOXONE 0.4 MG/ML 1 ML VIAL IV PRN (21:22)
[2019-05-11] MEDS ORDERED: HYDROmorphone 1 MG/ML 1 ML SYRINGE IVP PRN (21:22)
[2019-05-11] MEDS: SODIUM CHLORIDE 0.9% 1,000 ML IV SCH (21:55)
[2019-05-11] MEDS: traMADol 50 MG TAB PO PRN (23:18)
[2019-05-12] MEDS: SODIUM CHLORIDE 0.9% 1,000 ML IV SCH ×3 (02:52→19:25)
[2019-05-12] MEDS: LISINOPRIL 5 MG TAB PO SCH (08:20)
[2019-05-12] MEDS: INSULIN ASPART (NovoLOG) 100 UNIT/ML VIAL SQ SCH ×4 (08:20→21:14)
[2019-05-12] MEDS: PANTOPRAZOLE 40 MG TABLET PO SCH (08:20)
[2019-05-12] MEDS: ATORVASTATIN 40 MG TAB PO SCH (08:20)
[2019-05-12] MEDS: traMADol 50 MG TAB PO PRN ×2 (08:22→17:23)
[2019-05-12 11:41] LABS: Glucose,Whole Blood 116 mg/dL (75-99)
[2019-05-12 16:40] LABS: Glucose,Whole Blood 89 mg/dL (75-99)
[2019-05-12 20:03] LABS: Glucose,Whole Blood 135 mg/dL (75-99)
[2019-05-12 23:41] VITALS: PULSE 62
[2019-05-13] MEDS: SODIUM CHLORIDE 0.9% 1,000 ML IV SCH (03:30)
[2019-05-13] MEDS: traMADol 50 MG TAB PO PRN ×2 (04:06→10:14)
[2019-05-13 06:32] LABS: Glucose,Whole Blood 126 mg/dL (75-99)
[2019-05-13 07:28] VITALS: BP 132/72; RESP 18; TEMP 98.3
[2019-05-13] MEDS: INSULIN ASPART (NovoLOG) 100 UNIT/ML VIAL SQ SCH ×2 (07:58→12:35)
--- NOTE | 2019-05-13 10:10 | CONS ---
CONSULTATION REASON FOR CONSULTATION: Epigastric pain and history of acute recurrent pancreatitis. HISTORY OF PRESENT ILLNESS: The patient is a 48-year-old pleasant white female who was just discharged from the hospital 2 weeks ago when she was admitted with acute pancreatitis secondary to hypertriglyceridemia. She was readmitted to the hospital about 2 weeks ago with chest pain and was observed for 2 days and was discharged home. This time she presents with acute onset of severe epigastric pain that started yesterday morning. Pain was mostly in the epigastric area. Had some nausea, but no emesis. She came into the emergency room and was noted to have slightly elevated lipase at 760. Since she was started on a clear liquid diet, she is doing much better this morning. Her abdominal symptoms have significantly improved. She has no prior history of peptic ulcer disease or recent NSAID use. PAST MEDICAL HISTORY: Significant for acute recurrent pancreatitis secondary to hypertriglyceridemia, diabetes mellitus, hypertension, hyperlipidemia, anxiety and depression. PAST SURGICAL HISTORY: Tubal ligation. MEDICATIONS: At home include Protonix, Antivert, Zestril, Zofran, fenofibrate, NovoLog, iron sulfate, insulin, Levemir, Lipitor and Ultram. SOCIAL HISTORY: No alcohol use. Chronic smoker. FAMILY HISTORY: Mother had no significant medical problems. Father at age 67 from pneumonia. REVIEW OF SYSTEMS: CARDIOPULMONARY: No chest pain, shortness of breath. GENITOURINARY: No dysuria, hematuria. MUSCULOSKELETAL: Unremarkable. SKIN: Unremarkable. ENDOCRINE: Unremarkable. PSYCHIATRIC: Unremarkable. NEUROLOGY: Unremarkable. ENT/VISION: Unremarkable. CONSTITUTIONAL: No significant disease. PHYSICAL EXAMINATION: Blood pressure is 132/72, pulse is 62, temperature 98.3. HEENT: Examination unremarkable, conjunctivae are pink, sclerae nonicteric, oral cavity no lesions. NECK: No JVD or lymph node enlargement. CHEST: Clear to auscultation. HEART: Regular rate and rhythm. ABDOMEN: Soft. Bowel sounds are positive. No organomegaly. EXTREMITIES: No pedal edema. SKIN: No rashes. NEUROLOGIC: Alert and oriented x3. No focal deficits. LABS: Done today WBC 9.8, hemoglobin is 12.5, platelets normal. Basic metabolic panel is within normal limits. Lipase is 736 and yesterday it was 513. Today no labs available. ALT, AST, T-bilirubin and alkaline phosphatase are within normal limits. IMPRESSION: 1. Intermittent episodes of epigastric pain in this lady who has acute past, noted to have mild elevation of lipase, but has this gradually improving. Her symptoms have also significantly improved. 2. Hypertriglyceridemia. 3. History of diabetes mellitus. 4. Hypertension. RECOMMENDATION: 1. Advance to low-fat diet. 2. Continue with Protonix daily. 3. Since the symptoms are significantly improved. She can be discharged home today. Will plan on outpatient upper endoscopy early next week to rule out the possibility of peptic ulcer disease. The plan was discussed with the patient. She is agreeable to it. MMJOHANL / IJAbimael: [id number] /
[2019-05-13] MEDS: ATORVASTATIN 40 MG TAB PO SCH (10:13)
[2019-05-13] MEDS: PANTOPRAZOLE 40 MG TABLET PO SCH (10:13)
[2019-05-13] MEDS: LISINOPRIL 5 MG TAB PO SCH (10:14)
[2019-05-13 11:36] LABS: Glucose,Whole Blood 111 mg/dL (75-99)
--- NOTE | 2019-05-13 15:37 | HP ---
HISTORY AND PHYSICAL CHIEF COMPLAINT: Chest pain and abdominal pain. HISTORY OF PRESENT ILLNESS: This is another admission for this 48-year-old, white female who has been coming in and out with various complaints of chest pain and epigastric pain. She does have a chronic relapsing pancreatitis, probably secondary to hypertriglyceridemia. She is also fairly noncompliant and rarely keeps her office visit appointments. She now has type 2 diabetes. She came back to the emergency room and her lipase is elevated again and she was readmitted. REVIEW OF SYSTEMS: She has had no fever, chills, vomiting, diarrhea, diaphoresis, palpitations, orthopnea, PND, etc. Past medical history, family history, and personal and social histories were all otherwise unremarkable or unchanged from recent admitting and discharge summaries. MEDICATIONS: She is on lisinopril, ferrous sulfate, atorvastatin, fenofibrate, tramadol, Levemir, NovoLog, and metformin. She does continue to smoke but does not drink. PHYSICAL EXAMINATION: Blood pressure is 126/65, pulse is 79, respirations 32, she is afebrile. In general, she appeared to be obese and in no acute distress. Skin color is normal. Skin is warm and dry. Lymph nodes are not enlarged. Hear, ears, eyes, nose, mouth, and throat were normal. Neck veins are not distended. Thyroid not enlarged. Chest is clear. Cardiac exam is normal. Abdomen is soft and slightly tender over the epigastrium. There are no masses or visceromegaly. Bowel sounds present. Extremities normal. Neurologically, she is intact. ADMITTING DIAGNOSES: She is admitted to the hospital with the diagnoses: 1. Chest pain. 2. Chronic relapsing pancreatitis. 3. Hypertriglyceridemia. 4. Type 2 [id number] diabetes mellitus. 5. Nicotine abuse. PLAN: 1. Bed rest. 2. IV fluids. 3. Monitor lipase as well as blood sugars. 4. She will be seen again by Cardiology. MMODL / IJN: [id number] /
--- NOTE | 2019-05-13 15:50 | PN ---
PROGRESS NOTE DATE OF SERVICE: 05/12/2019 CHIEF COMPLAINT: Epigastric pain. HISTORY OF PRESENT ILLNESS: This lady is still complaining of epigastric pain and nausea. Chest pain is gone. PHYSICAL EXAMINATION: Color is good. Chest is clear. Cardiac exam is normal. The abdomen is slightly tender over the epigastrium without masses. IMPRESSION: 1. Chest pain. 2. Pancreatitis. 3. Diabetes. PLAN: 1. Increase activity and diet. 2. Consult GI once again. MMODL / IJN: [id number] /
--- NOTE | 2019-05-13 22:25 | DS ---
DISCHARGE SUMMARY CHIEF COMPLAINT: Chest and epigastric pain. HISTORY OF PRESENT ILLNESS AND PHYSICAL EXAM: Details of this lady's history and physical can be found in the initial workup. LABORATORY STUDIES: While she was in the hospital, she had laboratory studies, details of which can be found in the laboratory section of her chart. COURSE IN HOSPITAL: After admission, she was placed on bedrest, started on intravenous fluids and seen again by Gastroenterology who had nothing further to offer. She will go back home on her usual activity, diet and medication and follow up in the office in a day or 2. FINAL DIAGNOSES: 1. Chest pain, noncardiac. 2. Chronic relapsing pancreatitis. 3. Hypertriglyceridemia. 4. Insulin-dependent type 2 diabetes mellitus. 5. Obesity. 6. Nicotine abuse. OPERATIONS: None. CONSULTATIONS: Gastroenterology. She is improved. MMODL / IJN: [id number] /
== END 2019-05-13 14:02 | disposition home or self-care (01) ==
LOC: EC 19:04 → 1SOBS 21:26
PROVIDERS: ADMIT Family Medicine; ATTEND Family Medicine
DX: R07.89 Other chest pain (principal); K86.1 Other chronic pancreatitis; E78.1 Pure hyperglyceridemia; Z79.4 Long term (current) use of insulin; E11.9 Type 2 diabetes mellitus without complications; E66.9 Obesity, unspecified; Z68.41 Body mass index [BMI] 40.0-44.9, adult; F17.200 Nicotine dependence, unspecified, uncomplicated; K21.9 Gastro-esophageal reflux disease without esophagitis; E78.5 Hyperlipidemia, unspecified; F60.9 Personality disorder, unspecified; F25.9 Schizoaffective disorder, unspecified; Z91.19 Patient's noncompliance with other medical treatment and regimen; K85.90 Acute pancreatitis without necrosis or infection, unspecified; R74.8 Abnormal levels of other serum enzymes; I10 Essential (primary) hypertension; F32.9 Major depressive disorder, single episode, unspecified; F41.9 Anxiety disorder, unspecified; Z79.891 Long term (current) use of opiate analgesic; Z79.899 Other long term (current) drug therapy
CPT/HCPCS: 96361 ×2; 96376; 96374; 99285; 36415; 93005; 83880; 80053; 82550; 83690 ×2; 83735; 84484; 85025; 85610; 85730; 81001; 71046; G0378 ×3; J2405 ×2

== ENCOUNTER 2019-06-05 18:35 | Emergency (ER) | payer MEDICARE, OTHER ==
[2019-06-05 18:49] VITALS: RESP 18; TEMP 98.7
[2019-06-05] MEDS ORDERED: guaiFENesin-DM 600/30MG 1 EACH TAB.ER.12H PO STA (19:07)
[2019-06-05] MEDS ORDERED: MAG HYDROX/AL HYDROX/SIMETH 30 ML, HYOSCYAMINE ELIXIR 10 ML, LIDOCAINE VISCOUS 2% 10 ML PO STA ×3 (19:07)
[2019-06-05] MEDS ORDERED: ACETAMINOPHEN TAB 500 MG TAB PO STA (19:11)
--- NOTE | 2019-06-05 19:11 | ED ---
General Adult HPI - General Chief complaint: Nausea/Vomiting/Diarrhea Stated complaint: flu like symptoms Time Seen by Provider: 06/05/19 18:47 Source: patient, EMS Mode of arrival: EMS - History of Present Illness Initial comments: 48-year-old female patient with past medical history significant for hypercholesterolemia, GERD, pancreatitis presents to the emergency department f or evaluation of upper respiratory symptoms. Patient states for the last couple of days she has had nasal congestion, drainage, cough, and sore throat. Patient states that she is coughing up green sputum. Denies any shortness of breath or wheezing with this. She is also reporting body aches and chills. States she has also had diarrhea for the last couple of days. States 2-3 episodes per day. Denies any hematochezia or melena. Denies any recent travel or sick contacts. States she did get her influenza vaccine. Denies taking any medication for her symptoms other than aspirin around 4 PM this evening. Patient is also reporting significant heartburn since having pizza for dinner last night. Patient is unsure she is currently taking her Protonix, states that she believes she is only taking medication for cholesterol and diabetes. Patient denies any recent rash, chest pain, abdominal pain, vomiting, back pain, numbness, tingling, dizziness, weakness, hematuria, dysuria, urinary urgency, urinary frequency, headache, visual changes, or any other complaints. - Related Data Home Medications Medication Instructions Recorded Confirmed Insulin Detemir (Levemir) [Levemir] 20 unit SQ HS@1900 04/11/19 05/11/19 Atorvastatin [Lipitor] 40 mg PO DAILY 04/25/19 05/11/19 traMADol HCl [Ultram] 1 tab PO Q6H PRN 04/25/19 05/11/19 Previous Rx's Medication Instructions Recorded Ferrous Sulfate [Iron (65 MG 325 mg PO BID #60 tab 02/09/19 Elemental)] INSULIN ASPART (NovoLOG) [NovoLOG 6 unit SQ AC-TID #1 vial 02/10/19 (formulary)] Fenofibrate [Lofibra] 160 mg PO DAILY #30 tab 03/23/19 Lisinopril [Zestril] 5 mg PO DAILY #30 tab 04/15/19 Pantoprazole [Protonix] 40 mg PO DAILY #30 tablet. 04/29/19 guaiFENesin-DM 600/30MG [Mucinex 2 each PO Q12HR PRN #20 tab.er.12h 06/05/19 Dm] Allergies Allergy/AdvReac Type Severity Reaction Status Date / Time No Known Allergies Allergy Verified 06/05/19 18:49 Review of Systems ROS Statement: Those systems with pertinent positive or pertinent negative responses have been documented in the HPI. ROS Other: All systems not noted in ROS Statement are negative. Past Medical History Past Medical History: Diabetes Mellitus, GERD/Reflux, Hyperlipidemia, Syncope Additional Past Medical History / Comment(s): Pancreatitis twice, NIDDM type II, UTI, chronic low back pain, bulging discs, dental abscesses in past. History of Any Multi-Drug Resistant Organisms: None Reported Past Surgical History: Tubal Ligation Additional Past Surgical History / Comment(s): Age 7 had VSD repair Past Anesthesia/Blood Transfusion Reactions: No Reported Reaction Past Psychological History: No Psychological Hx Reported Smoking Status: Current every day smoker Past Alcohol Use History: None Reported Past Drug Use History: None Reported - Past Family History Mother Family Medical History: No Reported History Additional Family Medical History / Comment(s): Mother was healthy. She is , pt cannot recall cause of . Father Family Medical History: Pneumonia Additional Family Medical History / Comment(s): Father at the age of 67yrs from pneumonia General Exam General appearance: alert, in no apparent distress, other (Physical well- developed, well-nourished adult female patient in no acute distress. Vital signs upon presentation are temperature 98.7F, pulse 69, respirations 18, blood pressure 176/99, pulse ox 97% on room air.) Eye exam: Present: normal appearance, PERRL, EOMI. Absent: scleral icterus, conjunctival injection, periorbital swelling ENT exam: Present: mucous membranes moist, TM's normal bilaterally. Absent: normal oropharynx (Pharyngeal erythema) Respiratory exam: Present: normal lung sounds bilaterally. Absent: respiratory distress, wheezes, rales, rhonchi, stridor Cardiovascular Exam: Present: regular rate, normal rhythm, normal heart sounds. Absent: systolic murmur, diastolic murmur, rubs, gallop, clicks GI/Abdominal exam: Present: soft, normal bowel sounds. Absent: distended, tenderness, guarding, rebound, rigid Neurological exam: Present: alert, oriented X3, CN II-XII intact Psychiatric exam: Present: normal affect, normal mood Skin exam: Present: warm, dry, intact, normal color. Absent: rash Course Vital Signs 06/05/19 06/05/19 18:38 20:04 Temperature 98.7 F Pulse Rate 69 65 Respiratory 18 18 Rate Blood Pressure 176/99 155/79 O2 Sat by Pulse 97 98 Oximetry EKG Findings - EKG Comments: EKG Findings:: EKG obtained at 1846 shows normal sinus rhythm with a ventricular rate is 71, SC interval 158, QRS duration 82, QT 396, QTc 4:30. No evidence of ST elevation or depression. Medical Decision Making - Medical Decision Making 48 year-old female patient presenting for evaluation of upper respiratory symptoms, heartburn, diarrhea. Physical examination reveals a soft nontender abdomen. There is some pharyngeal erythema. Lung sounds are clear bilaterally. Influenza testing is negative. EKG showed normal sinus rhythm. Patient states that she did stop taking her Protonix, she is urged to continue this until further instructions given by her primary care physician. We did discuss appropriate diet for GERD symptoms, she is advised to avoid pizza as this seems to increase her symptoms. We will give prescription for Mucinex DM for her upper respiratory symptoms. She is instructed to increase fluids and to rest. She is instructed to follow-up with the primary care physician for recheck in 1- 2 days. Return parameters discussed in detail. She verbalizes understanding and agrees with this plan. - Lab Data Lab Results 06/05/19 Range/Units 19:24 Influenza Type A RNA Not Detected (Not Detectd) Influenza Type B (PCR) Not Detected (Not Detectd) - Radiology Data Radiology results: report reviewed, image reviewed Two-view x-ray of the chest is obtained. Report reviewed in its entirety. Impression by Dr. Bassett reveals no new suspicious acute infiltrate. Disposition Clinical Impression: Viral upper respiratory infection, Diarrhea Disposition: HOME SELF-CARE Condition: Good Instructions (If sedation given, give patient instructions): Upper Respiratory Infection (ED), Acute Diarrhea (ED) Additional Instructions: Increase fluids. Rest. Take medications as directed. Follow-up with your primary care physician on Saturday as you have planned. Return to the emergency department immediately for any new, worsening, or concerning symptoms. Prescriptions: guaiFENesin-DM 600/30MG [Mucinex Dm] 2 each PO Q12HR PRN #20 tab.er.12h PRN Reason: Cough Is patient prescribed a controlled substance at d/c from ED?: No Referrals: Guillermo Cerda MD [Primary Care Provider] - 1-2 days Time of Disposition: 20:16
--- NOTE | 2019-06-05 19:58 | XR ---
EXAMINATION TYPE: XR chest 2V DATE OF EXAM: 06/05/2019 COMPARISON: Chest x-ray May 11, 2019. HISTORY: Cough and sputum production. TECHNIQUE: Frontal and lateral views of the chest are obtained. FINDINGS: There is no focal air space opacity, pleural effusion, or pneumothorax seen. The cardiac silhouette size is stable and upper limits of normal. Overlying sternal wires redemonstrated. The os seous structures are intact. IMPRESSION: No new suspicious acute infiltrate.
[2019-06-05 20:05] VITALS: BP 155/79; PULSE 65
== END 2019-06-05 20:35 | disposition home or self-care (01) ==
LOC: EC 18:35
DX: J06.9 Acute upper respiratory infection, unspecified (principal); R19.7 Diarrhea, unspecified; R12 Heartburn; E78.00 Pure hypercholesterolemia, unspecified; E11.9 Type 2 diabetes mellitus without complications; E78.5 Hyperlipidemia, unspecified; F17.200 Nicotine dependence, unspecified, uncomplicated; Z79.4 Long term (current) use of insulin; Z79.899 Other long term (current) drug therapy; Z87.19 Personal history of other diseases of the digestive system; Z83.6 Family history of other diseases of the respiratory system
CPT/HCPCS: 71046; 87502; 93005; 99284

== ENCOUNTER 2019-06-06 13:56 | Emergency (ER) | payer MEDICARE, OTHER ==
[2019-06-06 14:37] LABS: Anisocytosis Slight; Basophils % (A) 0 %; Eosinophils # (A) 0.2 k/uL (0-0.7); Eosinophils % (A) 2 %; HCT 39.2 % (34.0-46.0); HGB 12.6 gm/dL (11.4-16.0); Lymphocytes # (A) 1.9 k/uL (1.0-4.8); Lymphocytes % (A) 16 %; MCV 81.1 fL (80.0-100.0); Mean Platelet Volume 6.7; Microcytosis Slight; Monocytes # (A) 0.4 k/uL (0-1.0); Monocytes % (A) 4 %; Neutrophils % (A) 77 %; Platelet Count 466 k/uL (150-450); RBC 4.84 m/uL (3.80-5.40); RDW 16.6 % (11.5-15.5); WBC 11.8 k/uL (3.8-10.6)
[2019-06-06 14:47] LABS: ALT 22 U/L (4-34); AST 32 U/L (14-36); African American GFR (CKD) >90 (>60 ml/min/1.73 sqM); Alkaline Phosphatase 108 U/L (38-126); Anion Gap 12 mmol/L; Blood Urea Nitrogen 15 mg/dL (7-17); Calcium 8.8 mg/dL (8.4-10.2); Carbon Dioxide 23 mmol/L (22-30); Chloride 101 mmol/L (98-107); Glucose 278 mg/dL (74-99); Non-African American GFR(CKD) 83 (>60 ml/min/1.73 sqM); Potassium 4.1 mmol/L (3.5-5.1); Sodium 136 mmol/L (137-145); Total Bilirubin 0.3 mg/dL (0.2-1.3)
[2019-06-06] MEDS ORDERED: ACETAMINOPHEN TAB 325 MG TAB PO STA (14:58)
--- NOTE | 2019-06-06 14:58 | ED ---
Chest Pain HPI - General Source: patient Mode of arrival: EMS Limitations: no limitations <Stephanie Elise - Last Filed: 06/06/19 16:06> <Moy Torres - Last Filed: 06/06/19 18:55> - General Chief Complaint: Chest Pain Stated Complaint: Flu like sx Time Seen by Provider: 06/06/19 13:58 - History of Present Illness Initial Comments: 48-year-old female with history of DM, HLD, pancreatitis presenting for multiple complaints. Patient states she continues to cough congestion and body aches for the past 2-3 days. She states she also is now experiencing chest pain since yesterday evening she states is sharp in the epigastric lower chest region. Patient denies any radiation to the back. Patient denies any nausea vomiting diarrhea. Patient admits to fevers. Patient denies to melena hematochezia dysuria or urgency frequency. Patient states that she feels slightly short of breath. Denies hemoptysis or leg swelling. Denies recent surgeries, or active cancer/ recent travel. Patient has experienced this in the past and has had been admitted she states. Denies history of CAD or stents placement. Patient called EMS whne symptoms persisted this afternoon. Patient upon arrival is febrile but nontoxic in appearance, no acute distress. (Stephanie Elise) - Related Data Home Medications Medication Instructions Recorded Confirmed Insulin Detemir (Levemir) [Levemir] 20 unit SQ HS@1900 04/11/19 05/11/19 Atorvastatin [Lipitor] 40 mg PO DAILY 04/25/19 05/11/19 traMADol HCl [Ultram] 1 tab PO Q6H PRN 04/25/19 05/11/19 Previous Rx's Medication Instructions Recorded Ferrous Sulfate [Iron (65 MG 325 mg PO BID #60 tab 02/09/19 Elemental)] INSULIN ASPART (NovoLOG) [NovoLOG 6 unit SQ AC-TID #1 vial 02/10/19 (formulary)] Fenofibrate [Lofibra] 160 mg PO DAILY #30 tab 03/23/19 Lisinopril [Zestril] 5 mg PO DAILY #30 tab 04/15/19 Pantoprazole [Protonix] 40 mg PO DAILY #30 tablet. 04/29/19 guaiFENesin-DM 600/30MG [Mucinex 2 each PO Q12HR PRN #20 tab.er.12h 06/05/19 Dm] Allergies Allergy/AdvReac Type Severity Reaction Status Date / Time No Known Allergies Allergy Verified 06/05/19 18:49 Review of Systems ROS Other: All systems not noted in ROS Statement are negative. <Stephanie Elise - Last Filed: 06/06/19 16:06> ROS Other: All systems not noted in ROS Statement are negative. <Moy Torres - Last Filed: 06/06/19 18:55> ROS Statement: Those systems with pertinent positive or pertinent negative responses have been documented in the HPI. Past Medical History Past Medical History: Diabetes Mellitus, GERD/Reflux, Hyperlipidemia, Syncope Additional Past Medical History / Comment(s): Pancreatitis twice, NIDDM type II, UTI, chronic low back pain, bulging discs, dental abscesses in past. History of Any Multi-Drug Resistant Organisms: None Reported Past Surgical History: Tubal Ligation Additional Past Surgical History / Comment(s): Age 7 had VSD repair Past Anesthesia/Blood Transfusion Reactions: No Reported Reaction Past Psychological History: No Psychological Hx Reported Smoking Status: Current every day smoker Past Alcohol Use History: None Reported Past Drug Use History: None Reported - Past Family History Mother Family Medical History: No Reported History Additional Family Medical History / Comment(s): Mother was healthy. She is , pt cannot recall cause of . Father Family Medical History: Pneumonia Additional Family Medical History / Comment(s): Father at the age of 67yrs from pneumonia <Stephanie Elise - Last Filed: 06/06/19 16:06> General Exam Limitations: no limitations <Stephanie Elise - Last Filed: 06/06/19 16:06> - General Exam Comments Initial Comments: General: The patient is awake and alert, in no distress, and does not appear acutely ill. Eye: +3 mm pupils are equal, round and reactive to light, extra-ocular movements are intact. No nystagmus. There is normal conjunctiva bilaterally. No signs of icterus. Ears, nose, mouth and throat: There are moist mucous membranes and no oral lesions. Neck: The neck is supple, there is no tenderness or JVD. Cardiovascular: There is a regular rate and rhythm. No murmur, rub or gallop is appreciated. Respiratory: Lungs are clear to auscultation, respirations are non-labored, breath sounds are equal. No wheezes, stridor, rales, or rhonchi. Gastrointestinal: Soft, non-distended, non-tender abdomen without masses or organomegaly noted. There is no rebound or guarding present. Musculoskeletal: Normal ROM, no tenderness. Strength 5/5. Sensation intact. Pulses equal bilaterally 2+. Neurological: A&O x 3. CN II-XII intact grossly, There are no obvious motor or sensory deficits. Coordination appears grossly intact. Speech is normal. Skin: Skin is warm and dry and no rashes or lesions are noted. Psychiatric: Cooperative, appropriate mood & affect, normal judgment. (Stephanie Elise) Course Vital Signs 06/06/19 06/06/19 06/06/19 13:58 14:05 15:39 Temperature 100.0 F H Pulse Rate 70 68 Pulse Rate [ 70 Pulse Oximetery ] Respiratory 18 18 Rate Blood Pressure 174/78 O2 Sat by Pulse 98 Oximetry 06/06/19 06/06/19 06/06/19 15:41 15:46 16:23 Temperature 99.2 F Pulse Rate 74 65 Pulse Rate [ Pulse Oximetery ] Respiratory 18 18 Rate Blood Pressure 148/87 O2 Sat by Pulse 98 Oximetry 06/06/19 18:23 Temperature Pulse Rate 68 Pulse Rate [ Pulse Oximetery ] Respiratory 16 Rate Blood Pressure 146/71 O2 Sat by Pulse 95 Oximetry Chest Pain [facility] <Moy Torres - Last Filed: 06/06/19 18:55> - [facility] Chest x-ray report shows no acute pulmonary process. Abdominal ultrasound report shows hepatomegaly with mild fatty infiltration liver. Patient was endorsed to me by ED ROSALIE Elise secondary to end of her shift with the patient's 2 hour troponin and abdominal ultrasound report still pending. Patient's 2 hour troponin remains negative. Patient's abdominal ultrasound report is as above. Patient is alert and breathing comfortably with a normal room air oxygen saturation. Patient's vital signs are normal/reassuring. Patient denies development of any new symptoms while in the ED. Patient is aware of her test results, and she feels comfortable going home at this time. Patient was counseled about upper respiratory infections and chest pain. Patient was clearly explained return and follow-up instructions. Patient was instructed to return to the ED immediately should she develop new or worsening pain, shortness of breath/trouble breathing, a high fever, persistent vomiting, feeling dizzy or faint, or new or worsening symptoms. Patient was also instructed to follow up closely with her primary care provider. Patient feels comfortable with this plan. (Moy Torres) Disposition <GeraldkarolStephanie L - Last Filed: 06/06/19 16:06> Is patient prescribed a controlled substance at d/c from ED?: No Time of Disposition: 18:51 <Moy Torres - Last Filed: 06/06/19 18:55> Clinical Impression: Upper respiratory infection, Chest pain Disposition: HOME SELF-CARE Condition: Stable Instructions (If sedation given, give patient instructions): Chest Pain (ED), Upper Respiratory Infection (ED) Additional Instructions: Return to the ER immediately should you develop new or worsening pain, shortness of breath/trouble breathing, a high fever, persistent vomiting, feeling dizzy or faint, or new or worsening symptoms. Follow up closely with your primary care provider. Referrals: Guillermo Cerda MD [Primary Care Provider] - 1-2 days
--- NOTE | 2019-06-06 15:00 | XR ---
EXAMINATION TYPE: XR chest 2V DATE OF EXAM: 06/06/2019 COMPARISON: 05/28/2019 INDICATION: Flulike symptoms chest pain TECHNIQUE: Frontal and lateral views of the chest are obtained. FINDINGS: The heart size is normal. The pulmonary vasculature is normal. The lungs are clear. IMPRESSION: 1. No acute pulmonary process.
[2019-06-06] MEDS ORDERED: ASPIRIN 81 MG PO STA ×2 (15:11→15:58)
[2019-06-06] MEDS ORDERED: NITROGLYCERIN OINT 1 INCH/GM PACKET TOPICAL STA ×2 (15:11→15:57)
[2019-06-06] MEDS ORDERED: IPRATROPIUM-ALBUTEROL 3 ML NEB INHALATION STA (15:17)
[2019-06-06 16:10] LABS: Appearance,Urine Clear (Clear); Bilirubin,Urine Negative (Negative); Blood,Urine Negative (Negative); Color,Urine Yellow; Glucose,Urine (UA) Negative (Negative); Ketones,Urine Negative (Negative); Leukocyte Esterase,Urine Negative (Negative); Mucus,Urine Rare /hpf; Nitrite,Urine Negative (Negative); Protein,Urine 2+ (Negative); RBC,Urine <1 /hpf (0-5); Specific Gravity,Urine 1.021 (1.001-1.035); Squamous Epithelial Cell,Urine 2 /hpf (0-4); Urobilinogen,Urine <2.0 mg/dL (<2.0); WBC,Urine 1 /hpf (0-5)
[2019-06-06 16:23] VITALS: TEMP 99.2
--- NOTE | 2019-06-06 16:51 | US ---
EXAMINATION TYPE: US abdomen limited DATE OF EXAM: 06/06/2019 COMPARISON: NONE CLINICAL HISTORY: epigastric pain. chest pain. Difficult and limited exam due to patient body habitus . patient not NPO at time of exam EXAM MEASUREMENTS: Liver Length: 20.5 cm Gallbladder Wall: 0.2 cm CBD: 0.5 cm Right Kidney: 11.7 x 5.4 x 4.6 cm Pancreas: Obscured by bowel gas Liver: Enlarged, coarse and echogenic echotexture. Attenuating Gallbladder: No stones visualized Evidence for sonographic Jurado's sign: No CBD: wnl as visualized Right Kidney: No hydronephrosis or masses seen IMPRESSION: Hepatomegaly with mild fatty infiltration liver.
[2019-06-06 18:41] VITALS: BP 146/71; PULSE 68; RESP 16
== END 2019-06-06 19:05 | disposition home or self-care (01) ==
LOC: EC 13:56
DX: J06.9 Acute upper respiratory infection, unspecified (principal); R07.89 Other chest pain; R16.0 Hepatomegaly, not elsewhere classified; K76.0 Fatty (change of) liver, not elsewhere classified; E11.9 Type 2 diabetes mellitus without complications; E78.5 Hyperlipidemia, unspecified; F17.200 Nicotine dependence, unspecified, uncomplicated; Z79.4 Long term (current) use of insulin; Z79.899 Other long term (current) drug therapy; Z83.6 Family history of other diseases of the respiratory system; Z98.890 Other specified postprocedural states
CPT/HCPCS: 36415; 71046; 76705; 80053; 81001; 83690; 84484; 85025; 87502; 93005; 94640; 99285

== ENCOUNTER 2019-06-25 11:53 | Observation (INO) | payer MEDICARE, OTHER ==
[2019-06-25] MEDS ORDERED: ACETAMINOPHEN TAB 500 MG TAB PO STA (12:30)
--- NOTE | 2019-06-25 12:34 | ED ---
General Adult HPI - General Chief complaint: Weakness Stated complaint: Weakness Time Seen by Provider: 06/25/19 11:59 Source: patient, EMS, RN notes reviewed Mode of arrival: EMS Limitations: no limitations - History of Present Illness Initial comments: Patient is a pleasant 48-year-old female presenting to the emergency Department with complaints of generalized weakness and fatigue. Onset of symptoms was yesterday. Patient has chills and achiness. Patient states mild cough. No dyspnea. Patient states she did have an episode of loose stools yesterday. No abdominal pain. No nausea vomiting. No history of similar symptoms previously. - Related Data Home Medications Medication Instructions Recorded Confirmed Insulin Detemir (Levemir) [Levemir] 20 unit SQ HS@1900 04/11/19 06/25/19 traMADol HCl [Ultram] 1 tab PO Q6H PRN 04/25/19 06/25/19 Atorvastatin [Lipitor] 80 mg PO HS 06/25/19 06/25/19 Ergocalciferol (Vitamin D2) 50,000 unit PO TU 06/25/19 06/25/19 [Drisdol] INSULIN ASPART (NovoLOG) [NovoLOG 6 unit SQ TID-W/MEALS 06/25/19 06/25/19 (formulary)] Ondansetron [Zofran] 4 mg PO Q8HR PRN 06/25/19 06/25/19 guaiFENesin-DM 600/30MG [Mucinex 2 tab PO Q12HR PRN 06/25/19 06/25/19 Dm] Previous Rx's Medication Instructions Recorded Ferrous Sulfate [Iron (65 MG 325 mg PO BID #60 tab 02/09/19 Elemental)] Fenofibrate [Lofibra] 160 mg PO DAILY #30 tab 03/23/19 Lisinopril [Zestril] 5 mg PO DAILY #30 tab 04/15/19 Pantoprazole [Protonix] 40 mg PO DAILY #30 tablet. 04/29/19 Allergies Allergy/AdvReac Type Severity Reaction Status Date / Time No Known Allergies Allergy Verified 06/25/19 13:59 Review of Systems ROS Statement: Those systems with pertinent positive or pertinent negative responses have been documented in the HPI. ROS Other: All systems not noted in ROS Statement are negative. Constitutional: Reports: chills Eyes: Denies: eye pain ENT: Denies: ear pain Respiratory: Reports: cough. Denies: dyspnea Cardiovascular: Denies: chest pain Endocrine: Reports: fatigue Gastrointestinal: Reports: as per HPI. Denies: abdominal pain, nausea, vomiting Genitourinary: Denies: dysuria Musculoskeletal: Denies: back pain Skin: Denies: rash Neurological: Reports: as per HPI Past Medical History Past Medical History: Diabetes Mellitus, GERD/Reflux, Hyperlipidemia, Syncope Additional Past Medical History / Comment(s): Pancreatitis twice, NIDDM type II, UTI, chronic low back pain, bulging discs, dental abscesses in past. History of Any Multi-Drug Resistant Organisms: None Reported Past Surgical History: Tubal Ligation Additional Past Surgical History / Comment(s): Age 7 had VSD repair Past Anesthesia/Blood Transfusion Reactions: No Reported Reaction Past Psychological History: No Psychological Hx Reported Smoking Status: Current every day smoker Past Alcohol Use History: None Reported Past Drug Use History: None Reported - Past Family History Mother Family Medical History: No Reported History Additional Family Medical History / Comment(s): Mother was healthy. She is , pt cannot recall cause of . Father Family Medical History: Pneumonia Additional Family Medical History / Comment(s): Father at the age of 67yrs from pneumonia General Exam Limitations: no limitations General appearance: alert, in no apparent distress Head exam: Present: normocephalic Eye exam: Present: normal appearance ENT exam: Present: normal oropharynx Neck exam: Present: normal inspection. Absent: tenderness Respiratory exam: Present: normal lung sounds bilaterally Cardiovascular Exam: Present: regular rate, normal rhythm GI/Abdominal exam: Present: soft. Absent: tenderness External exam: Present: normal external exam Extremities exam: Present: normal inspection Neurological exam: Present: alert. Absent: motor sensory deficit Psychiatric exam: Present: normal affect, normal mood Skin exam: Present: normal color Course Vital Signs 06/25/19 06/25/19 06/25/19 11:59 12:28 13:42 Temperature 98.5 F 99.9 F H Pulse Rate 78 61 Respiratory 18 19 Rate Blood Pressure 157/82 127/65 O2 Sat by Pulse 98 97 Oximetry EKG Findings - EKG Comments: EKG Findings:: Normal sinus rhythm 72. W[place] 156. QRS 84. QT 392. QTC 429. Normal axis. Normal QRS. Nonspecific T-wave. Medical Decision Making - Medical Decision Making Patient reevaluated and improved. Patient does have elevated lactic acid. Case was discussed with Dr. Cerda who will admit his patient. He agrees with IV fluid hydration and repeat levels tomorrow. Patient updated. - Lab Data Result diagrams: 06/25/19 12:00 06/25/19 12:00 Lab Results 06/25/19 06/25/19 06/25/19 Range/Units 12:00 12:00 12:00 WBC 11.6 H (3.8-10.6) k/uL RBC 4.88 (3.80-5.40) m/uL Hgb 12.7 (11.4-16.0) gm/dL Hct 40.6 (34.0-46.0) % MCV 83.2 (80.0-100.0) fL MCH 26.1 (25.0-35.0) pg MCHC 31.4 (31.0-37.0) g/dL RDW 16.9 H (11.5-15.5) % Plt Count 514 H (150-450) k/uL Neutrophils % 73 % Lymphocytes % 19 % Monocytes % 4 % Eosinophils % 3 % Basophils % 1 % Neutrophils # 8.4 H (1.3-7.7) k/uL Lymphocytes # 2.2 (1.0-4.8) k/uL Monocytes # 0.4 (0-1.0) k/uL Eosinophils # 0.3 (0-0.7) k/uL Basophils # 0.1 (0-0.2) k/uL Anisocytosis Slight Sodium 136 L (137-145) mmol/L Potassium 4.9 (3.5-5.1) mmol/L Chloride 100 (98-107) mmol/L Carbon Dioxide 24 (22-30) mmol/L Anion Gap 12 mmol/L BUN 8 (7-17) mg/dL Creatinine 0.68 (0.52-1.04) mg/dL Est GFR (CKD-EPI)AfAm >90 (>60 ml/min/1.73 sqM) Est GFR (CKD-EPI)NonAf >90 (>60 ml/min/1.73 sqM) Glucose 322 H (74-99) mg/dL POC Glucose (mg/dL) (75-99) mg/dL POC Glu Bone Puller ID Plasma Lactic Acid Travon (0.7-2.0) mmol/L Calcium 9.0 (8.4-10.2) mg/dL Total Bilirubin 0.4 (0.2-1.3) mg/dL AST 35 (14-36) U/L ALT 23 (4-34) U/L Alkaline Phosphatase 119 (38-126) U/L Total Protein 7.0 (6.3-8.2) g/dL Albumin 4.1 (3.5-5.0) g/dL Amylase (30-110) U/L Lipase (23-300) U/L Urine Color Yellow Urine Appearance Clear (Clear) Urine pH 6.0 (5.0-8.0) Ur Specific [place] 1.027 (1.001-1.035) Urine Protein 2+ H (Negative) Urine Glucose (UA) Negative (Negative) Urine Ketones Negative (Negative) Urine Blood Negative (Negative) Urine Nitrite Negative (Negative) Urine Bilirubin Negative (Negative) Urine Urobilinogen <2.0 (<2.0) mg/dL Ur Leukocyte Esterase Negative (Negative) Urine RBC 1 (0-5) /hpf Urine WBC 2 (0-5) /hpf Ur Squamous Epith Cells 3 (0-4) /hpf Urine Bacteria Rare H (None) /hpf Hyaline Casts 3 H (0-2) /lpf Urine Mucus Occasional H (None) /hpf Influenza Type A RNA (Not Detectd) Influenza Type B (PCR) (Not Detectd) 06/25/19 06/25/19 06/25/19 Range/Units 12:00 12:00 12:00 WBC (3.8-10.6) k/uL RBC (3.80-5.40) m/uL Hgb (11.4-16.0) gm/dL Hct (34.0-46.0) % MCV (80.0-100.0) fL MCH (25.0-35.0) pg MCHC (31.0-37.0) g/dL RDW (11.5-15.5) % Plt Count (150-450) k/uL Neutrophils % % Lymphocytes % % Monocytes % % Eosinophils % % Basophils % % Neutrophils # (1.3-7.7) k/uL Lymphocytes # (1.0-4.8) k/uL Monocytes # (0-1.0) k/uL Eosinophils # (0-0.7) k/uL Basophils # (0-0.2) k/uL Anisocytosis Sodium (137-145) mmol/L Potassium (3.5-5.1) mmol/L Chloride (98-107) mmol/L Carbon Dioxide (22-30) mmol/L Anion Gap mmol/L BUN (7-17) mg/dL Creatinine (0.52-1.04) mg/dL Est GFR (CKD-EPI)AfAm (>60 ml/min/1.73 sqM) Est GFR (CKD-EPI)NonAf (>60 ml/min/1.73 sqM) Glucose (74-99) mg/dL POC Glucose (mg/dL) (75-99) mg/dL POC Glu Bone Puller ID Plasma Lactic Acid Travon 5.2 H* (0.7-2.0) mmol/L Calcium (8.4-10.2) mg/dL Total Bilirubin (0.2-1.3) mg/dL AST (14-36) U/L ALT (4-34) U/L Alkaline Phosphatase (38-126) U/L Total Protein (6.3-8.2) g/dL Albumin (3.5-5.0) g/dL Amylase 39 (30-110) U/L Lipase 326 H (23-300) U/L Urine Color Urine Appearance (Clear) Urine pH (5.0-8.0) Ur Specific [place] (1.001-1.035) Urine Protein (Negative) Urine Glucose (UA) (Negative) Urine Ketones (Negative) Urine Blood (Negative) Urine Nitrite (Negative) Urine Bilirubin (Negative) Urine Urobilinogen (<2.0) mg/dL Ur Leukocyte Esterase (Negative) Urine RBC (0-5) /hpf Urine WBC (0-5) /hpf Ur Squamous Epith Cells (0-4) /hpf Urine Bacteria (None) /hpf Hyaline Casts (0-2) /lpf Urine Mucus (None) /hpf Influenza Type A RNA Not Detected (Not Detectd) Influenza Type B (PCR) Not Detected (Not Detectd) 06/25/19 Range/Units 13:33 WBC (3.8-10.6) k/uL RBC (3.80-5.40) m/uL Hgb (11.4-16.0) gm/dL Hct (34.0-46.0) % MCV (80.0-100.0) fL MCH (25.0-35.0) pg MCHC (31.0-37.0) g/dL RDW (11.5-15.5) % Plt Count (150-450) k/uL Neutrophils % % Lymphocytes % % Monocytes % % Eosinophils % % Basophils % % Neutrophils # (1.3-7.7) k/uL Lymphocytes # (1.0-4.8) k/uL Monocytes # (0-1.0) k/uL Eosinophils # (0-0.7) k/uL Basophils # (0-0.2) k/uL Anisocytosis Sodium (137-145) mmol/L Potassium (3.5-5.1) mmol/L Chloride (98-107) mmol/L Carbon Dioxide (22-30) mmol/L Anion Gap mmol/L BUN (7-17) mg/dL Creatinine (0.52-1.04) mg/dL Est GFR (CKD-EPI)AfAm (>60 ml/min/1.73 sqM) Est GFR (CKD-EPI)NonAf (>60 ml/min/1.73 sqM) Glucose (74-99) mg/dL POC Glucose (mg/dL) 222 H (75-99) mg/dL POC Glu Bone Puller BELINDA SantiagoyahirDanyelle Plasma Lactic Acid Travon (0.7-2.0) mmol/L Calcium (8.4-10.2) mg/dL Total Bilirubin (0.2-1.3) mg/dL AST (14-36) U/L ALT (4-34) U/L Alkaline Phosphatase (38-126) U/L Total Protein (6.3-8.2) g/dL Albumin (3.5-5.0) g/dL Amylase (30-110) U/L Lipase (23-300) U/L Urine Color Urine Appearance (Clear) Urine pH (5.0-8.0) Ur Specific [place] (1.001-1.035) Urine Protein (Negative) Urine Glucose (UA) (Negative) Urine Ketones (Negative) Urine Blood (Negative) Urine Nitrite (Negative) Urine Bilirubin (Negative) Urine Urobilinogen (<2.0) mg/dL Ur Leukocyte Esterase (Negative) Urine RBC (0-5) /hpf Urine WBC (0-5) /hpf Ur Squamous Epith Cells (0-4) /hpf Urine Bacteria (None) /hpf Hyaline Casts (0-2) /lpf Urine Mucus (None) /hpf Influenza Type A RNA (Not Detectd) Influenza Type B (PCR) (Not Detectd) Disposition Clinical Impression: Lactic acidosis Disposition: ADMITTED IP TO THIS HOSP Is patient prescribed a controlled substance at d/c from ED?: No Referrals: Guillermo Cerda MD [Primary Care Provider] - 1-2 days Decision Time: 14:45
[2019-06-25] MEDS: SODIUM CHLORIDE 0.9% 1,000 ML IV SCH ×2 (12:44→20:34)
[2019-06-25] MEDS: SODIUM CHLORIDE 0.9% 500 ML 500 ML IV SCH ×2 (12:44→13:00)
[2019-06-25 12:56] LABS: Anisocytosis Slight; Basophils # (A) 0.1 k/uL (0-0.2); Basophils % (A) 1 %; Eosinophils # (A) 0.3 k/uL (0-0.7); Eosinophils % (A) 3 %; HCT 40.6 % (34.0-46.0); HGB 12.7 gm/dL (11.4-16.0); Lymphocytes # (A) 2.2 k/uL (1.0-4.8); Lymphocytes % (A) 19 %; MCH 26.1 pg (25.0-35.0); MCHC 31.4 g/dL (31.0-37.0); MCV 83.2 fL (80.0-100.0); Mean Platelet Volume 6.9; Monocytes # (A) 0.4 k/uL (0-1.0); Monocytes % (A) 4 %; Neutrophils # (A) 8.4 k/uL (1.3-7.7); Neutrophils % (A) 73 %; Platelet Count 514 k/uL (150-450); RBC 4.88 m/uL (3.80-5.40); RDW 16.9 % (11.5-15.5); WBC 11.6 k/uL (3.8-10.6)
--- NOTE | 2019-06-25 13:04 | XR ---
EXAMINATION TYPE: XR chest 2V DATE OF EXAM: 06/25/2019 COMPARISON: 06/06/2019 HISTORY: Fever, weakness, cough, and dizziness TECHNIQUE: Frontal and lateral views of the chest are obtained. FINDINGS: There is no focal air space opacity, pleural effusion, or pneumothorax seen. Median sterno corby wires are seen. The cardiac silhouette size is within normal limits. The osseous structures ar e intact. IMPRESSION: No acute cardiopulmonary process.
[2019-06-25 13:05] LABS: ALT 23 U/L (4-34); AST 35 U/L (14-36); African American GFR (CKD) >90 (>60 ml/min/1.73 sqM); Albumin 4.1 g/dL (3.5-5.0); Alkaline Phosphatase 119 U/L (38-126); Anion Gap 12 mmol/L; Blood Urea Nitrogen 8 mg/dL (7-17); Carbon Dioxide 24 mmol/L (22-30); Chloride 100 mmol/L (98-107); Glucose 322 mg/dL (74-99); Non-African American GFR(CKD) >90 (>60 ml/min/1.73 sqM); Potassium 4.9 mmol/L (3.5-5.1); Sodium 136 mmol/L (137-145); Total Bilirubin 0.4 mg/dL (0.2-1.3)
[2019-06-25 13:20] LABS: Appearance,Urine Clear (Clear); Bacteria,Urine Rare /hpf; Bilirubin,Urine Negative (Negative); Blood,Urine Negative (Negative); Color,Urine Yellow; Glucose,Urine (UA) Negative (Negative); Hyaline Casts,Urine 3 /lpf (0-2); Ketones,Urine Negative (Negative); Leukocyte Esterase,Urine Negative (Negative); Mucus,Urine Occasional /hpf; Nitrite,Urine Negative (Negative); Protein,Urine 2+ (Negative); RBC,Urine 1 /hpf (0-5); Specific Gravity,Urine 1.027 (1.001-1.035); Squamous Epithelial Cell,Urine 3 /hpf (0-4); Urobilinogen,Urine <2.0 mg/dL (<2.0); WBC,Urine 2 /hpf (0-5)
[2019-06-25 13:35] LABS: Glucose,Whole Blood 222 mg/dL (75-99)
[2019-06-25] MEDS ORDERED: SODIUM CHLORIDE 0.9% 1,000 ML IV STA ×2 (13:46)
[2019-06-25 14:31] LABS: Amylase 39 U/L (30-110)
[2019-06-25] MEDS ORDERED: ACETAMINOPHEN TAB 325 MG TAB PO PRN (14:45)
[2019-06-25] MEDS ORDERED: NALOXONE 0.4 MG/ML 1 ML VIAL IV PRN (14:45)
[2019-06-25 14:48] VITALS: RESP 18
[2019-06-25 16:51] LABS: Glucose,Whole Blood 112 mg/dL (75-99)
[2019-06-25] MEDS: INSULIN ASPART (NovoLOG) 100 UNIT/ML VIAL SQ SCH ×3 (17:14→23:04)
[2019-06-25] MEDS ORDERED: INSULIN DETEMIR (LEVEMIR) 100 UNIT/ML SYR SQ SCH (19:00)
[2019-06-25 20:22] LABS: Glucose,Whole Blood 120 mg/dL (75-99)
[2019-06-25] MEDS: FERROUS SULFATE 325 MG TAB PO SCH (20:34)
[2019-06-25] MEDS: traMADol 50 MG TAB PO PRN (20:34)
[2019-06-25] MEDS ORDERED: ATORVASTATIN 80 MG TAB PO SCH (21:00)
[2019-06-26 06:05] LABS: ALT 16 U/L (4-34); AST 22 U/L (14-36); African American GFR (CKD) >90 (>60 ml/min/1.73 sqM); Alkaline Phosphatase 93 U/L (38-126); Anion Gap 5 mmol/L; Blood Urea Nitrogen 11 mg/dL (7-17); Calcium 8.3 mg/dL (8.4-10.2); Carbon Dioxide 27 mmol/L (22-30); Chloride 105 mmol/L (98-107); Glucose 133 mg/dL (74-99); Non-African American GFR(CKD) >90 (>60 ml/min/1.73 sqM); Potassium 4.5 mmol/L (3.5-5.1); Sodium 137 mmol/L (137-145); Total Bilirubin 0.5 mg/dL (0.2-1.3); Total Protein 5.7 g/dL (6.3-8.2)
[2019-06-26 06:14] LABS: Anisocytosis Slight; Basophils % (A) 0 %; Eosinophils # (A) 0.3 k/uL (0-0.7); Eosinophils % (A) 3 %; HCT 36.8 % (34.0-46.0); HGB 11.4 gm/dL (11.4-16.0); Hypochromasia Slight; Lymphocytes # (A) 2.9 k/uL (1.0-4.8); Lymphocytes % (A) 33 %; MCH 25.9 pg (25.0-35.0); MCHC 30.8 g/dL (31.0-37.0); MCV 83.9 fL (80.0-100.0); Mean Platelet Volume 6.7; Monocytes # (A) 0.3 k/uL (0-1.0); Monocytes % (A) 4 %; Neutrophils # (A) 5.1 k/uL (1.3-7.7); Neutrophils % (A) 58 %; Platelet Count 430 k/uL (150-450); RBC 4.39 m/uL (3.80-5.40); RDW 16.6 % (11.5-15.5); WBC 8.9 k/uL (3.8-10.6)
[2019-06-26] MEDS: SODIUM CHLORIDE 0.9% 1,000 ML IV SCH ×2 (06:31→08:04)
[2019-06-26 06:49] LABS: Glucose,Whole Blood 135 mg/dL (75-99)
[2019-06-26 07:04] VITALS: BP 134/82; PULSE 54; TEMP 98
[2019-06-26] MEDS ORDERED: PANTOPRAZOLE 40 MG TABLET PO SCH (07:30)
[2019-06-26] MEDS: traMADol 50 MG TAB PO PRN (08:03)
[2019-06-26] MEDS: INSULIN ASPART (NovoLOG) 100 UNIT/ML VIAL SQ SCH ×2 (08:03)
[2019-06-26] MEDS: FERROUS SULFATE 325 MG TAB PO SCH (08:04)
[2019-06-26] MEDS ORDERED: FENOFIBRATE 160 MG TAB PO SCH (09:00)
[2019-06-26] MEDS ORDERED: LISINOPRIL 5 MG TAB PO SCH (09:00)
--- NOTE | 2019-06-26 17:19 | HP ---
HISTORY AND PHYSICAL CHIEF COMPLAINT: Lightheadedness, dizziness, shortness of breath and chest pain. HISTORY OF PRESENT ILLNESS AND PHYSICAL EXAM: This is another admission for this 48-year-old white female who has been in the hospital on numerous occasions in the last 3 months. She does have a problem with chronic pancreatitis, which is secondary to hypertriglyceridemia. She also has insulin- dependent diabetes as a result. She comes in with chest pain frequently and has had a full cardiac workup and nothing has been found. She came back to the emergency room this time because she was feeling weak and dizzy and slightly lightheaded. In the emergency room, everything was normal except she had a lactic acidosis of about 4.5. She had no fever or chills. No cough, hemoptysis, sputum production, abdominal pain, vomiting, diarrhea, dysuria, frequency, urgency, etc. Past medical history, family history, personal and social histories are all essentially unchanged from her recent admitting and discharge summaries. REVIEW OF SYSTEMS: Otherwise normal. ALLERGIC: She is not allergic to any medication MEDICATIONS: She takes lisinopril 5 mg once a day, Nexium 20 once a day, ferrous sulfate 325 twice a day, atorvastatin 81 once a day, fenofibrate 160 once a day, tramadol 50 q.6h p.r.n., Levemir 20 units once a day, NovoLog 6 units 3 times a day before meals and metformin 500 mg once a day. She denies drinking. PHYSICAL EXAMINATION: She is afebrile. Blood pressure is 132/80, pulse 68, respirations of 18. In general, she appeared to be overweight in no acute distress. Skin color is normal. Skin is warm, dry. Lymph nodes are not enlarged. Head, ears, eyes, nose, mouth, and throat were normal. Neck veins not distended. Thyroid not enlarged. CHEST: Clear. Cardiac exam is normal. Abdomen is soft and nontender. There are no masses or visceromegaly. Bowel sounds are present. Extremities are normal. Neurological she is intact. IMPRESSION: She is admitted to the hospital with diagnoses: 1. Elevated lactic acid, etiology unknown. 2. Chronic pancreatitis. 3. Hypertriglyceridemia. 4. Insulin-dependent type 2 diabetes. PLAN: 1. Bed rest. 2. IV fluids. 3. Appropriate cultures. 4. Follow lactic acid. MMODL / IJN: [id number] /
--- NOTE | 2019-06-26 17:35 | DS ---
DISCHARGE SUMMARY CHIEF COMPLAINT: Elevated lactic acid. HISTORY OF PRESENT ILLNESS AND PHYSICAL EXAM: Details of this lady's history and physical can be found in the initial workup. LABORATORY STUDIES: While she was in the hospital, she had laboratory studies, details of which can be found in the laboratory section of her chart. COURSE IN HOSPITAL: After admission, she was placed on bedrest, started his fluids and lactic acid was repeated the following morning it was normal. She had no signs or symptoms of any issues that would be of concern. She had no fever. It was felt she could go home. She will go home on her usual activity, diet and medications and she will follow up in the office in a day or 2. FINAL DIAGNOSES: 1. Elevated lactic acid. 2. Hypertriglyceridemia. 3. Pancreatitis. 4. Type 2 ojp-dbeyiix-wvwqiupst diabetes mellitus. OPERATIONS: None. CONSULTATION: None. She is improved. MMJOHANL / GOOD: [id number] /
== END 2019-06-26 11:55 | disposition home or self-care (01) ==
LOC: EC 11:53 → 1SOBS 14:45
PROVIDERS: ADMIT Family Medicine; ATTEND Family Medicine
DX: E87.2 Acidosis (principal); E78.1 Pure hyperglyceridemia; R42 Dizziness and giddiness; R07.9 Chest pain, unspecified; R06.02 Shortness of breath; R68.83 Chills (without fever); R05 Cough; E11.9 Type 2 diabetes mellitus without complications; K86.1 Other chronic pancreatitis; E78.5 Hyperlipidemia, unspecified; K21.9 Gastro-esophageal reflux disease without esophagitis; G89.29 Other chronic pain; M54.5 Low back pain; M51.9 Unspecified thoracic, thoracolumbar and lumbosacral intervertebral disc disorder; Z79.899 Other long term (current) drug therapy; Z79.4 Long term (current) use of insulin; Z79.891 Long term (current) use of opiate analgesic; Z87.440 Personal history of urinary (tract) infections; Z98.890 Other specified postprocedural states; Z86.79 Personal history of other diseases of the circulatory system; F17.200 Nicotine dependence, unspecified, uncomplicated; Z83.6 Family history of other diseases of the respiratory system
CPT/HCPCS: 96361 ×3; 96360; 99285; 36415; 93005; 80053 ×2; 82150; 83605 ×2; 83690 ×2; 85025 ×2; 81001; 87040; 87502; 71046; G0378 ×2

== ENCOUNTER 2019-07-11 17:08 | Emergency (ER) | payer MEDICARE ==
[2019-07-11 17:13] VITALS: BP 165/92; PULSE 74; TEMP 99.3
[2019-07-11 18:08] LABS: African American GFR (CKD) >90 (>60 ml/min/1.73 sqM); Anion Gap 12 mmol/L; Blood Urea Nitrogen 17 mg/dL (7-17); Calcium 9.1 mg/dL (8.4-10.2); Carbon Dioxide 21 mmol/L (22-30); Chloride 103 mmol/L (98-107); Glucose 326 mg/dL (74-99); Non-African American GFR(CKD) 88 (>60 ml/min/1.73 sqM); Potassium 4.8 mmol/L (3.5-5.1); Sodium 136 mmol/L (137-145)
[2019-07-11 18:09] LABS: Anisocytosis Slight; Basophils % (A) 0 %; Eosinophils # (A) 0.2 k/uL (0-0.7); Eosinophils % (A) 2 %; HCT 39.2 % (34.0-46.0); HGB 12.8 gm/dL (11.4-16.0); Lymphocytes # (A) 2.7 k/uL (1.0-4.8); Lymphocytes % (A) 21 %; MCH 26.9 pg (25.0-35.0); MCHC 32.5 g/dL (31.0-37.0); MCV 82.7 fL (80.0-100.0); Mean Platelet Volume 8.1; Monocytes # (A) 0.5 k/uL (0-1.0); Monocytes % (A) 4 %; Neutrophils # (A) 9.3 k/uL (1.3-7.7); Neutrophils % (A) 72 %; Platelet Count 523 k/uL (150-450); RBC 4.75 m/uL (3.80-5.40); RDW 17.1 % (11.5-15.5)
[2019-07-11 18:12] VITALS: RESP 16
--- NOTE | 2019-07-11 18:12 | ED ---
General Adult HPI - General Chief complaint: Upper Respiratory Infection Stated complaint: pain all over/fatigue Time Seen by Provider: 07/11/19 17:09 Source: patient, EMS Mode of arrival: EMS Limitations: no limitations - History of Present Illness Initial comments: Dictation was produced using [employer] dictation software. please excuse any grammatical, word or spelling errors. This patient was cared for during a federal and state declared state of emergency secondary to Covid 19 Chief Complaint: 48-year-old female past medical history of diabetes, GERD, this anemia and syncope presents with URI-type symptoms. History of Present Illness: Is a 48-year-old female she has some comorbidities patient presents today with 48 hours of cough, myalgias and generalized weakness. Patient states that she has not any overt sick contacts. Patient denies any fever, chills or night sweats. Denies any pain complaints. Patient denies any shortness of breath. States that her cough is nonproductive. She reports distract. No sore throat. The ROS documented in this emergency department record has been reviewed and confirmed by me. Those systems with pertinent positive or negative responses have been documented in the HPI. All other systems are other negative and/or noncontributory. PHYSICAL EXAM: General Impression: Alert and oriented x3, not in acute distress HEENT: Normocephalic atraumatic, extra-ocular movements intact, pupils equal and reactive to light bilaterally, mucous membranes moist. Cardiovascular: Heart regular rate and rhythm, S1&S2 audible, no murmurs, rubs or gallops Chest: Able complete full sentences, no retractions, no distress Abdomen: Bowel sounds present, abdomen soft, non-tender, non-distended, no organomegaly Musculoskeletal: Pulses present and equal in all extremities, no peripheral edema Motor: no focal deficits noted Neurological: CN II-XII grossly intact, no focal motor or sensory deficits noted Skin: Intact with no visualized rashes Psych: Normal affect and mood ED course: 48-year-old female presents with URI type symptoms for 48 hours. Patient's well-appearing at bedside. Vital signs upon arrival are within acceptable limits. Patient showing no signs of respiratory distress per she is not hypoxic. Patient is concerned of possible Covid 19 syndrome. Discussed the patient that according to our hospital policy we are not testing patient's that aren't being admitted to the hospital at this time. Patient is clinically stable. Laboratory evaluation obtained. Mild leukocytosis 13.0 complex, 523. Metabolic panel shows mild anion gap acidosis with a glucose of 326.Chest x-ray shows no acute processes. Patient clinically stable for discharge. Patient told that she needs to hydrate herself. She is advised follow-up with primary care physician. Concern that patient is concerned for Covid she is instructed to stay home for 14 days. Patient given resources for Covid 19 information and contact information for [facility]. - Related Data Home Medications Medication Instructions Recorded Confirmed Insulin Detemir (Levemir) [Levemir] 20 unit SQ HS@1900 04/11/19 06/25/19 traMADol HCl [Ultram] 1 tab PO Q6H PRN 04/25/19 06/25/19 Atorvastatin [Lipitor] 80 mg PO HS 06/25/19 06/25/19 Ergocalciferol (Vitamin D2) 50,000 unit PO TU 06/25/19 06/25/19 [Drisdol] INSULIN ASPART (NovoLOG) [NovoLOG 6 unit SQ TID-W/MEALS 06/25/19 06/25/19 (formulary)] Ondansetron [Zofran] 4 mg PO Q8HR PRN 06/25/19 06/25/19 guaiFENesin-DM 600/30MG [Mucinex 2 tab PO Q12HR PRN 06/25/19 06/25/19 Dm] Previous Rx's Medication Instructions Recorded Ferrous Sulfate [Iron (65 MG 325 mg PO BID #60 tab 02/09/19 Elemental)] Fenofibrate [Lofibra] 160 mg PO DAILY #30 tab 03/23/19 Lisinopril [Zestril] 5 mg PO DAILY #30 tab 04/15/19 Pantoprazole [Protonix] 40 mg PO DAILY #30 tablet. 04/29/19 Allergies Allergy/AdvReac Type Severity Reaction Status Date / Time No Known Allergies Allergy Verified 07/11/19 17:13 Review of Systems ROS Statement: Those systems with pertinent positive or pertinent negative responses have been documented in the HPI. ROS Other: All systems not noted in ROS Statement are negative. Past Medical History Past Medical History: Diabetes Mellitus, GERD/Reflux, Hyperlipidemia, Syncope Additional Past Medical History / Comment(s): Pancreatitis twice, NIDDM type II, UTI, chronic low back pain, bulging discs, dental abscesses in past. History of Any Multi-Drug Resistant Organisms: None Reported Past Surgical History: Tubal Ligation Additional Past Surgical History / Comment(s): Age 7 had VSD repair Past Anesthesia/Blood Transfusion Reactions: No Reported Reaction Past Psychological History: No Psychological Hx Reported Smoking Status: Current every day smoker Past Alcohol Use History: None Reported Past Drug Use History: None Reported - Past Family History Mother Family Medical History: No Reported History Additional Family Medical History / Comment(s): Mother was healthy. She is , pt cannot recall cause of . Father Family Medical History: Pneumonia Additional Family Medical History / Comment(s): Father at the age of 67yrs from pneumonia General Exam Limitations: no limitations Course Vital Signs 07/11/19 07/11/19 07/11/19 17:10 18:09 18:11 Temperature 99.3 F Pulse Rate 74 Respiratory 18 18 16 Rate Blood Pressure 165/92 O2 Sat by Pulse 97 Oximetry Medical Decision Making - Lab Data Result diagrams: 07/11/19 17:40 07/11/19 17:40 Lab Results 07/11/19 07/11/19 Range/Units 17:40 17:40 WBC 13.0 H (3.8-10.6) k/uL RBC 4.75 (3.80-5.40) m/uL Hgb 12.8 (11.4-16.0) gm/dL Hct 39.2 (34.0-46.0) % MCV 82.7 (80.0-100.0) fL MCH 26.9 (25.0-35.0) pg MCHC 32.5 (31.0-37.0) g/dL RDW 17.1 H (11.5-15.5) % Plt Count 523 H (150-450) k/uL Neutrophils % 72 % Lymphocytes % 21 % Monocytes % 4 % Eosinophils % 2 % Basophils % 0 % Neutrophils # 9.3 H (1.3-7.7) k/uL Lymphocytes # 2.7 (1.0-4.8) k/uL Monocytes # 0.5 (0-1.0) k/uL Eosinophils # 0.2 (0-0.7) k/uL Basophils # 0.0 (0-0.2) k/uL Anisocytosis Slight Sodium 136 L (137-145) mmol/L Potassium 4.8 (3.5-5.1) mmol/L Chloride 103 (98-107) mmol/L Carbon Dioxide 21 L (22-30) mmol/L Anion Gap 12 mmol/L BUN 17 (7-17) mg/dL Creatinine 0.81 (0.52-1.04) mg/dL Est GFR (CKD-EPI)AfAm >90 (>60 ml/min/1.73 sqM) Est GFR (CKD-EPI)NonAf 88 (>60 ml/min/1.73 sqM) Glucose 326 H (74-99) mg/dL Calcium 9.1 (8.4-10.2) mg/dL Disposition Clinical Impression: URI (upper respiratory infection) Disposition: HOME SELF-CARE Condition: Good Instructions (If sedation given, give patient instructions): Upper Respiratory Infection (ED) Additional Instructions: Today you were evaluated for symptoms consistent with upper respiratory infection. There is concern that perhaps your symptomatology may represent Covid 19. Your are stable for discharge, however it is instructed to to seek immediate medical attention especially if you develop worsening symptoms especially respiratory distress. In the meantime please remain in quarantine for 14 days. For any other questions please contact [facility] for here in emergency department or [facility] at [phone] Is patient prescribed a controlled substance at d/c from ED?: No Referrals: Guillermo Cerda MD [Primary Care Provider] - 1-2 days Time of Disposition: 18:32
--- NOTE | 2019-07-11 18:26 | XR ---
EXAMINATION TYPE: XR chest 1V portable DATE OF EXAM: 07/11/2019 COMPARISON: 06/25/2019 HISTORY: Fever and weakness TECHNIQUE: Single view FINDINGS: Heart and mediastinum are normal. Lungs are clear. Diaphragm is normal. Bony thorax appears normal. IMPRESSION: Normal chest. No change.
== END 2019-07-11 18:40 | disposition home or self-care (01) ==
LOC: EC 17:08
DX: J06.9 Acute upper respiratory infection, unspecified (principal); D72.829 Elevated white blood cell count, unspecified; E87.2 Acidosis; Z20.828 Contact with and (suspected) exposure to other viral communicable diseases; R53.1 Weakness; E11.9 Type 2 diabetes mellitus without complications; K21.9 Gastro-esophageal reflux disease without esophagitis; E78.5 Hyperlipidemia, unspecified; F17.200 Nicotine dependence, unspecified, uncomplicated; Z79.4 Long term (current) use of insulin; Z79.899 Other long term (current) drug therapy; Z87.74 Personal history of (corrected) congenital malformations of heart and circulatory system; Z83.6 Family history of other diseases of the respiratory system
CPT/HCPCS: 36415; 71045; 80048; 85025; 99284

== ENCOUNTER 2019-09-20 11:03 | Emergency (ER) | payer MEDICARE ==
[2019-09-20] MEDS ORDERED: ACETAMINOPHEN TAB 325 MG TAB PO STA (11:34)
[2019-09-20] MEDS ORDERED: SODIUM CHLORIDE 0.9% 1,000 ML IV STA (11:34)
[2019-09-20 11:57] LABS: Basophils % (A) 1 %; Eosinophils # (A) 0.4 k/uL (0-0.7); Eosinophils % (A) 4 %; HCT 41.8 % (34.0-46.0); HGB 13.3 gm/dL (11.4-16.0); Hypochromasia Slight; Lymphocytes # (A) 1.4 k/uL (1.0-4.8); Lymphocytes % (A) 15 %; MCH 27.8 pg (25.0-35.0); MCHC 31.8 g/dL (31.0-37.0); MCV 87.3 fL (80.0-100.0); Mean Platelet Volume 7.3; Monocytes # (A) 0.3 k/uL (0-1.0); Monocytes % (A) 4 %; Neutrophils # (A) 7.2 k/uL (1.3-7.7); Neutrophils % (A) 76 %; Platelet Count 524 k/uL (150-450); RBC 4.78 m/uL (3.80-5.40); RDW 15.6 % (11.5-15.5); WBC 9.4 k/uL (3.8-10.6)
--- NOTE | 2019-09-20 12:00 | XR ---
EXAMINATION TYPE: XR chest 2V DATE OF EXAM: 09/20/2019 HISTORY: cough, fever. REFERENCE: Previous study dated 07/11/2019. FINDINGS: The lungs remain clear. Pleural space are clear. The heart is not enlarged. IMPRESSION: NO ACTIVE INTRATHORACIC DISEASE.
[2019-09-20 12:06] LABS: Appearance,Urine Clear (Clear); Bilirubin,Urine Negative (Negative); Blood,Urine Negative (Negative); Color,Urine Yellow; Glucose,Urine (UA) 4+ (Negative); Ketones,Urine Negative (Negative); Leukocyte Esterase,Urine Negative (Negative); Mucus,Urine Rare /hpf; Nitrite,Urine Negative (Negative); Protein,Urine 2+ (Negative); RBC,Urine 1 /hpf (0-5); Specific Gravity,Urine 1.022 (1.001-1.035); Squamous Epithelial Cell,Urine 3 /hpf (0-4); Urobilinogen,Urine <2.0 mg/dL (<2.0); WBC,Urine <1 /hpf (0-5)
[2019-09-20 12:07] LABS: ALT 33 U/L (4-34); AST 65 U/L (14-36); African American GFR (CKD) >90 (>60 ml/min/1.73 sqM); Albumin 3.9 g/dL (3.5-5.0); Alkaline Phosphatase 124 U/L (38-126); Anion Gap 12 mmol/L; Blood Urea Nitrogen 10 mg/dL (7-17); Calcium 9.3 mg/dL (8.4-10.2); Carbon Dioxide 21 mmol/L (22-30); Chloride 102 mmol/L (98-107); Glucose 428 mg/dL (74-99); Non-African American GFR(CKD) >90 (>60 ml/min/1.73 sqM); Potassium 4.6 mmol/L (3.5-5.1); Sodium 135 mmol/L (137-145); Total Bilirubin 0.4 mg/dL (0.2-1.3); Total Protein 6.9 g/dL (6.3-8.2)
--- NOTE | 2019-09-20 12:49 | ED ---
General Adult HPI - General Chief complaint: Fever Stated complaint: Body aches Time Seen by Provider: 09/20/19 11:05 Source: EMS Mode of arrival: EMS Limitations: no limitations - History of Present Illness Initial comments: Patient is a 49-year-old female, with hx of DM, presenting to the emergency department via EMS with complaints of body aches that started this morning. She admits to a mild cough that started yesterday. She denies any significant abdominal pain, nausea, vomiting, diarrhea, chest pain, shortness of breath, urinary complaints. She said she has some mild cramping over the top of her stomach area, but she gets that a lot. She denies any recent fever or chills. She has no further complaints at this time. Upon arrival to the ER, patient was slightly febrile 100.2, rest of vitals normal. - Related Data Home Medications Medication Instructions Recorded Confirmed Insulin Detemir (Levemir) [Levemir] 20 unit SQ HS@1900 04/11/19 06/25/19 traMADol HCl [Ultram] 1 tab PO Q6H PRN 04/25/19 06/25/19 Atorvastatin [Lipitor] 80 mg PO HS 06/25/19 06/25/19 Ergocalciferol (Vitamin D2) 50,000 unit PO TU 06/25/19 06/25/19 [Drisdol] INSULIN ASPART (NovoLOG) [NovoLOG 6 unit SQ TID-W/MEALS 06/25/19 06/25/19 (formulary)] Ondansetron [Zofran] 4 mg PO Q8HR PRN 06/25/19 06/25/19 guaiFENesin-DM 600/30MG [Mucinex 2 tab PO Q12HR PRN 06/25/19 06/25/19 Dm] Previous Rx's Medication Instructions Recorded Ferrous Sulfate [Iron (65 MG 325 mg PO BID #60 tab 02/09/19 Elemental)] Fenofibrate [Lofibra] 160 mg PO DAILY #30 tab 03/23/19 Lisinopril [Zestril] 5 mg PO DAILY #30 tab 04/15/19 Pantoprazole [Protonix] 40 mg PO DAILY #30 tablet. 04/29/19 Allergies Allergy/AdvReac Type Severity Reaction Status Date / Time No Known Allergies Allergy Verified 07/11/19 17:13 Review of Systems ROS Statement: Those systems with pertinent positive or pertinent negative responses have been documented in the HPI. ROS Other: All systems not noted in ROS Statement are negative. Past Medical History Past Medical History: Diabetes Mellitus, GERD/Reflux, Hyperlipidemia, Syncope Additional Past Medical History / Comment(s): Pancreatitis twice, NIDDM type II, UTI, chronic low back pain, bulging discs, dental abscesses in past. History of Any Multi-Drug Resistant Organisms: None Reported Past Surgical History: Tubal Ligation Additional Past Surgical History / Comment(s): Age 7 had VSD repair Past Anesthesia/Blood Transfusion Reactions: No Reported Reaction Past Psychological History: No Psychological Hx Reported Smoking Status: Current every day smoker Past Alcohol Use History: None Reported Past Drug Use History: None Reported - Past Family History Mother Family Medical History: No Reported History Additional Family Medical History / Comment(s): Mother was healthy. She is , pt cannot recall cause of . Father Family Medical History: Pneumonia Additional Family Medical History / Comment(s): Father at the age of 67yrs from pneumonia General Exam - General Exam Comments Initial Comments: GENERAL: Well-appearing, well-nourished and in no acute distress. HEAD: Atraumatic, normocephalic. EYES: Pupils equal round and reactive to light, extraocular movements intact, sclera anicteric, conjunctiva are normal. ENT: TMs normal, nares patent, oropharynx clear without exudates. Moist mucous membranes. NECK: Normal range of motion, supple without lymphadenopathy or JVD. LUNGS: Breath sounds clear to auscultation bilaterally and equal. No wheezes rales or rhonchi. HEART: Regular rate and rhythm without murmurs, rubs or gallops. ABDOMEN: Soft, nontender, normoactive bowel sounds. No guarding, no rebound. No masses appreciated. : Deferred EXTREMITIES: Normal range of motion, no pitting or edema. No clubbing or cyanosis. NEUROLOGICAL: Normal speech, normal gait. PSYCH: Normal mood, normal affect. SKIN: Warm, Dry, normal turgor, no rashes or lesions noted. Limitations: no limitations Course Vital Signs 09/20/19 09/20/19 09/20/19 11:05 12:24 13:55 Temperature 100.2 F H 99.0 F 98.9 F Pulse Rate 60 62 58 L Respiratory 18 18 16 Rate Blood Pressure 149/90 144/82 161/76 O2 Sat by Pulse 98 97 99 Oximetry Medical Decision Making - Medical Decision Making Patient is a 49-year-old female here for generalized body aches and a cough 1 day. Patient did arrive with a slight fever 100.7. Her exam is unremarkable. His x-ray shows no acute process, lab work shows no white count, glucose was 428. Urine shows no signs of infection. She was given Tylenol and fluids. Glucose was rechecked after only about 400mL of fluids and had dropped to 325. She states she is about due to for her insulin at home and she will take this as soon as she gets home. Patient will finish the fluids and the be ready for discharge. I discussed the patient has symptoms most likely related to a viral illness. She can continue with Tylenol as needed for fever or body aches. She states she does have an appointment with her PCP in 2 days. She is in agreement with this plan of care. Return parameters were discussed with the patient she verbalized understanding. Case discussed with Dr. George. - Lab Data Result diagrams: 09/20/19 11:19 09/20/19 11:19 Lab Results 09/20/19 09/20/19 09/20/19 Range/Units 11:19 11:19 11:19 WBC 9.4 (3.8-10.6) k/uL RBC 4.78 (3.80-5.40) m/uL Hgb 13.3 (11.4-16.0) gm/dL Hct 41.8 (34.0-46.0) % MCV 87.3 (80.0-100.0) fL MCH 27.8 (25.0-35.0) pg MCHC 31.8 (31.0-37.0) g/dL RDW 15.6 H (11.5-15.5) % Plt Count 524 H (150-450) k/uL Neutrophils % 76 % Lymphocytes % 15 % Monocytes % 4 % Eosinophils % 4 % Basophils % 1 % Neutrophils # 7.2 (1.3-7.7) k/uL Lymphocytes # 1.4 (1.0-4.8) k/uL Monocytes # 0.3 (0-1.0) k/uL Eosinophils # 0.4 (0-0.7) k/uL Basophils # 0.0 (0-0.2) k/uL Hypochromasia Slight Sodium 135 L (137-145) mmol/L Potassium 4.6 (3.5-5.1) mmol/L Chloride 102 (98-107) mmol/L Carbon Dioxide 21 L (22-30) mmol/L Anion Gap 12 mmol/L BUN 10 (7-17) mg/dL Creatinine 0.63 (0.52-1.04) mg/dL Est GFR (CKD-EPI)AfAm >90 (>60 ml/min/1.73 sqM) Est GFR (CKD-EPI)NonAf >90 (>60 ml/min/1.73 sqM) Glucose 428 H (74-99) mg/dL POC Glucose (mg/dL) (75-99) mg/dL POC Glu Meter Repairer ID Calcium 9.3 (8.4-10.2) mg/dL Total Bilirubin 0.4 (0.2-1.3) mg/dL AST 65 H (14-36) U/L ALT 33 (4-34) U/L Alkaline Phosphatase 124 (38-126) U/L Total Protein 6.9 (6.3-8.2) g/dL Albumin 3.9 (3.5-5.0) g/dL Urine Color Yellow Urine Appearance Clear (Clear) Urine pH 6.0 (5.0-8.0) Ur Specific [place] 1.022 (1.001-1.035) Urine Protein 2+ H (Negative) Urine Glucose (UA) 4+ H (Negative) Urine Ketones Negative (Negative) Urine Blood Negative (Negative) Urine Nitrite Negative (Negative) Urine Bilirubin Negative (Negative) Urine Urobilinogen <2.0 (<2.0) mg/dL Ur Leukocyte Esterase Negative (Negative) Urine RBC 1 (0-5) /hpf Urine WBC <1 (0-5) /hpf Ur Squamous Epith Cells 3 (0-4) /hpf Urine Mucus Rare H (None) /hpf / Range/Units 13:07 WBC (3.8-10.6) k/uL RBC (3.80-5.40) m/uL Hgb (11.4-16.0) gm/dL Hct (34.0-46.0) % MCV (80.0-100.0) fL MCH (25.0-35.0) pg MCHC (31.0-37.0) g/dL RDW (11.5-15.5) % Plt Count (150-450) k/uL Neutrophils % % Lymphocytes % % Monocytes % % Eosinophils % % Basophils % % Neutrophils # (1.3-7.7) k/uL Lymphocytes # (1.0-4.8) k/uL Monocytes # (0-1.0) k/uL Eosinophils # (0-0.7) k/uL Basophils # (0-0.2) k/uL Hypochromasia Sodium (137-145) mmol/L Potassium (3.5-5.1) mmol/L Chloride (98-107) mmol/L Carbon Dioxide (22-30) mmol/L Anion Gap mmol/L BUN (7-17) mg/dL Creatinine (0.52-1.04) mg/dL Est GFR (CKD-EPI)AfAm (>60 ml/min/1.73 sqM) Est GFR (CKD-EPI)NonAf (>60 ml/min/1.73 sqM) Glucose (74-99) mg/dL POC Glucose (mg/dL) 325 H (75-99) mg/dL POC Glu Meter Repairer ID Adrian Taylor Calcium (8.4-10.2) mg/dL Total Bilirubin (0.2-1.3) mg/dL AST (14-36) U/L ALT (4-34) U/L Alkaline Phosphatase (38-126) U/L Total Protein (6.3-8.2) g/dL Albumin (3.5-5.0) g/dL Urine Color Urine Appearance (Clear) Urine pH (5.0-8.0) Ur Specific [place] (1.001-1.035) Urine Protein (Negative) Urine Glucose (UA) (Negative) Urine Ketones (Negative) Urine Blood (Negative) Urine Nitrite (Negative) Urine Bilirubin (Negative) Urine Urobilinogen (<2.0) mg/dL Ur Leukocyte Esterase (Negative) Urine RBC (0-5) /hpf Urine WBC (0-5) /hpf Ur Squamous Epith Cells (0-4) /hpf Urine Mucus (None) /hpf Disposition Clinical Impression: Hyperglycemia, Upper respiratory infection Disposition: HOME SELF-CARE Condition: Stable Instructions (If sedation given, give patient instructions): Upper Respiratory Infection (ED) Additional Instructions: Please return to the Emergency Department if symptoms worsen or any other concerns. Continue to increase fluid intake, monitor glucose level. Follow-up with PCP. Is patient prescribed a controlled substance at d/c from ED?: No Referrals: Guillermo Cerda MD [Primary Care Provider] - 1-2 days
[2019-09-20 13:08] LABS: Glucose,Whole Blood 325 mg/dL (75-99)
[2019-09-20 13:58] VITALS: BP 161/76; PULSE 58; RESP 16; TEMP 98.9
== END 2019-09-20 13:40 | disposition home or self-care (01) ==
LOC: EC 11:03
DX: J06.9 Acute upper respiratory infection, unspecified (principal); E11.65 Type 2 diabetes mellitus with hyperglycemia; E78.5 Hyperlipidemia, unspecified; F17.200 Nicotine dependence, unspecified, uncomplicated; Z79.4 Long term (current) use of insulin; Z79.899 Other long term (current) drug therapy
CPT/HCPCS: 36415; 71046; 80053; 81001; 85025; 99284

== ENCOUNTER 2019-10-24 10:15 | Emergency (ER) | payer MEDICARE, OTHER ==
[2019-10-24 10:25] VITALS: RESP 18
--- NOTE | 2019-10-24 10:41 | ED ---
Chest Pain HPI - General Stated Complaint: Chest pain Time Seen by Provider: 10/24/19 10:18 Source: patient, EMS Mode of arrival: EMS Limitations: no limitations - History of Present Illness Initial Comments: This a 49-year-old female presents emergency Department chief complaint of chest pain. Patient states that the pain started last night she has a slight cough. She is a epigastric in nature nonradiating. Patient was given aspirin and nitro. Patient does admit that she's had prior open-heart surgery as a child. Patient does that she has a history of hyperlipidemia and diabetes. Patient denies any fevers or chills complaints. Patient has mild abdominal pains or nausea vomiting no diarrhea no constipation. Patient has history of pancreatitis. Patient denies any shortness of breath no dizziness no diaphoresis. - Related Data Home Medications Medication Instructions Recorded Confirmed Insulin Detemir (Levemir) [Levemir] 20 unit SQ DAILY 04/11/19 10/24/19 traMADol HCl [Ultram] 1 tab PO Q6H PRN 04/25/19 10/24/19 Atorvastatin [Lipitor] 80 mg PO HS 06/25/19 10/24/19 Ergocalciferol (Vitamin D2) 50,000 unit PO TU 06/25/19 10/24/19 [Drisdol] INSULIN ASPART (NovoLOG) [NovoLOG 6 unit SQ TID-W/MEALS 06/25/19 10/24/19 (formulary)] Ondansetron [Zofran] 4 mg PO Q8HR PRN 06/25/19 10/24/19 Butalbital/Aspirin/Caffeine 1 cap PO Q4H PRN 10/24/19 10/24/19 [Zqlomxlfcl-YZT-Mfzhysye Cap 50-325-40] Previous Rx's Medication Instructions Recorded Fenofibrate [Lofibra] 160 mg PO DAILY #30 tab 03/23/19 Pantoprazole [Protonix] 40 mg PO DAILY #30 tablet. 04/29/19 Allergies Allergy/AdvReac Type Severity Reaction Status Date / Time No Known Allergies Allergy Verified 10/24/19 12:42 Review of Systems ROS Statement: Those systems with pertinent positive or pertinent negative responses have been documented in the HPI. ROS Other: All systems not noted in ROS Statement are negative. EKG Findings - EKG Comments: EKG Findings:: EKG performed at 10:30 normal sinus rhythm rate 69 PA 138 QRS 72 QT/QTC 382/409 Past Medical History Past Medical History: Diabetes Mellitus, GERD/Reflux, Hyperlipidemia, Syncope Additional Past Medical History / Comment(s): Pancreatitis twice, NIDDM type II, UTI, chronic low back pain, bulging discs, dental abscesses in past. History of Any Multi-Drug Resistant Organisms: None Reported Past Surgical History: Tubal Ligation Additional Past Surgical History / Comment(s): Age 7 had VSD repair Past Anesthesia/Blood Transfusion Reactions: No Reported Reaction Past Psychological History: No Psychological Hx Reported Smoking Status: Current every day smoker Past Alcohol Use History: None Reported Past Drug Use History: None Reported - Past Family History Mother Family Medical History: No Reported History Additional Family Medical History / Comment(s): Mother was healthy. She is , pt cannot recall cause of . Father Family Medical History: Pneumonia Additional Family Medical History / Comment(s): Father at the age of 67yrs from pneumonia General Exam Limitations: no limitations General appearance: alert, in no apparent distress Head exam: Present: atraumatic, normocephalic, normal inspection Eye exam: Present: normal appearance, PERRL, EOMI. Absent: scleral icterus, conjunctival injection, periorbital swelling Neck exam: Present: normal inspection, full ROM. Absent: tenderness, meningismus, lymphadenopathy Respiratory exam: Present: normal lung sounds bilaterally. Absent: respiratory distress, wheezes, rales, rhonchi, stridor Cardiovascular Exam: Present: regular rate, normal rhythm, normal heart sounds. Absent: systolic murmur, diastolic murmur, rubs, gallop, clicks GI/Abdominal exam: Present: soft, normal bowel sounds. Absent: distended, tenderness, guarding, rebound, rigid Course Vital Signs 10/24/19 10/24/19 10/24/19 10:17 10:30 12:51 Temperature 99.3 F 98.9 F Pulse Rate 71 66 Pulse Rate [ 69 Education Analyst ] Respiratory 18 18 Rate Blood Pressure 146/75 141/85 O2 Sat by Pulse 96 95 Oximetry Chest Pain MDM - MDM I did review EKG labs, x-ray with no acute findings. Patient had a cardiac cath several months ago which showed no narrowing. Patient symptoms today are more consistent with mild pancreatitis, URI. She has no cardiac symptoms at this time. She'll be discharged in stable condition with close follow-up. Disposition Clinical Impression: Acute pancreatitis, Atypical chest pain Disposition: HOME SELF-CARE Condition: Stable Instructions (If sedation given, give patient instructions): Chest Pain (ED) Additional Instructions: Please return to the Emergency Department if symptoms worsen or any other concerns. Is patient prescribed a controlled substance at d/c from ED?: No Referrals: Guillermo Cerda MD [Primary Care Provider] - 1-2 days Time of Disposition: 13:08
[2019-10-24 10:50] LABS: Basophils # (A) 0.1 k/uL (0-0.2); Basophils % (A) 1 %; Eosinophils # (A) 0.3 k/uL (0-0.7); Eosinophils % (A) 3 %; HCT 40.9 % (34.0-46.0); HGB 13.5 gm/dL (11.4-16.0); Lymphocytes # (A) 1.8 k/uL (1.0-4.8); Lymphocytes % (A) 19 %; MCH 28.6 pg (25.0-35.0); MCV 86.5 fL (80.0-100.0); Mean Platelet Volume 6.8; Monocytes # (A) 0.4 k/uL (0-1.0); Monocytes % (A) 4 %; Neutrophils # (A) 6.8 k/uL (1.3-7.7); Neutrophils % (A) 72 %; Platelet Count 459 k/uL (150-450); RBC 4.72 m/uL (3.80-5.40); RDW 15.8 % (11.5-15.5); WBC 9.5 k/uL (3.8-10.6)
[2019-10-24 11:02] LABS: ALT 34 U/L (4-34); AST 72 U/L (14-36); African American GFR (CKD) >90 (>60 ml/min/1.73 sqM); Albumin 4.2 g/dL (3.5-5.0); Alkaline Phosphatase 141 U/L (38-126); Anion Gap 12 mmol/L; Blood Urea Nitrogen 12 mg/dL (7-17); Calcium 9.3 mg/dL (8.4-10.2); Carbon Dioxide 21 mmol/L (22-30); Chloride 105 mmol/L (98-107); Glucose 240 mg/dL (74-99); Magnesium 1.6 mg/dL (1.6-2.3); Non-African American GFR(CKD) >90 (>60 ml/min/1.73 sqM); Potassium 4.1 mmol/L (3.5-5.1); Sodium 138 mmol/L (137-145); Total Bilirubin 0.4 mg/dL (0.2-1.3); Total Protein 7.2 g/dL (6.3-8.2)
[2019-10-24 11:20] LABS: D-Dimer 0.28 mg/L FEU (<0.60); INR 0.9 (<1.2); Partial Thromboplastin Time 22.5 sec (22.0-30.0); Prothrombin Time 9.7 sec (9.0-12.0)
[2019-10-24 12:53] VITALS: BP 141/85; PULSE 66; TEMP 98.9
--- NOTE | 2019-10-24 13:03 | XR ---
EXAMINATION TYPE: XR chest 2V DATE OF EXAM: 10/24/2019 HISTORY: Chest Pain. REFERENCE: Previous study dated 09/20/2019. FINDINGS: The lungs remain clear. Pleural spaces are clear. The heart is not enlarged. IMPRESSION: NO ACTIVE INTRATHORACIC DISEASE.
== END 2019-10-24 13:10 | disposition home or self-care (01) ==
LOC: EC 10:15
DX: K85.90 Acute pancreatitis without necrosis or infection, unspecified (principal); R07.89 Other chest pain; E11.9 Type 2 diabetes mellitus without complications; E78.5 Hyperlipidemia, unspecified; F17.200 Nicotine dependence, unspecified, uncomplicated; Z79.4 Long term (current) use of insulin; Z79.82 Long term (current) use of aspirin; Z79.899 Other long term (current) drug therapy
CPT/HCPCS: 36415; 71046; 80053; 83690; 83735; 83880; 84484; 85025; 85379; 85610; 85730; 93005; 99285

== ENCOUNTER 2019-10-31 13:17 | Observation (INO) | payer MEDICARE, OTHER ==
[2019-10-31] MEDS ORDERED: NITROGLYCERIN OINT 1 INCH/GM PACKET TOPICAL STA (14:21)
[2019-10-31] MEDS ORDERED: ASPIRIN 81 MG PO STA (14:21)
--- NOTE | 2019-10-31 14:24 | ED ---
General Adult HPI - General Chief complaint: Chest Pain Stated complaint: chest pain Time Seen by Provider: 10/31/19 13:38 Source: patient, RN notes reviewed Mode of arrival: wheelchair Limitations: no limitations - History of Present Illness Initial comments: Patient is a pleasant 49-year-old female presenting to the emergency Department with chest discomfort. Patient states symptoms have improved following medication by EMS. Symptoms are now very mild. Patient is sharp chest discomfort that started yesterday. Patient states she does get symptoms similar to this every couple of weeks. Patient has had negative stress test, last was around a year or more ago she believes. Patient states she has not had previous heart catheterization. No associated dyspnea or nausea or diaphoresis. No leg pain or leg swelling. - Related Data Home Medications Medication Instructions Recorded Confirmed Insulin Detemir (Levemir) [Levemir] 20 unit SQ DAILY 04/11/19 10/24/19 traMADol HCl [Ultram] 1 tab PO Q6H PRN 04/25/19 10/24/19 Atorvastatin [Lipitor] 80 mg PO HS 06/25/19 10/24/19 Ergocalciferol (Vitamin D2) 50,000 unit PO TU 06/25/19 10/24/19 [Drisdol] INSULIN ASPART (NovoLOG) [NovoLOG 6 unit SQ TID-W/MEALS 06/25/19 10/24/19 (formulary)] Ondansetron [Zofran] 4 mg PO Q8HR PRN 06/25/19 10/24/19 Butalbital/Aspirin/Caffeine 1 cap PO Q4H PRN 10/24/19 10/24/19 [Mbadoiaxuq-GST-Bxkbynur Cap 50-325-40] Previous Rx's Medication Instructions Recorded Fenofibrate [Lofibra] 160 mg PO DAILY #30 tab 03/23/19 Pantoprazole [Protonix] 40 mg PO DAILY #30 tablet. 04/29/19 Allergies Allergy/AdvReac Type Severity Reaction Status Date / Time No Known Allergies Allergy Verified 10/31/19 13:34 Review of Systems ROS Statement: Those systems with pertinent positive or pertinent negative responses have been documented in the HPI. ROS Other: All systems not noted in ROS Statement are negative. Constitutional: Denies: fever Eyes: Denies: eye pain ENT: Denies: ear pain Respiratory: Denies: cough, dyspnea Cardiovascular: Reports: as per HPI, chest pain (Without radiation) Endocrine: Denies: fatigue Gastrointestinal: Denies: abdominal pain, nausea Genitourinary: Denies: dysuria Musculoskeletal: Denies: back pain Skin: Denies: rash Neurological: Denies: weakness Past Medical History Past Medical History: Diabetes Mellitus, GERD/Reflux, Hyperlipidemia, Syncope Additional Past Medical History / Comment(s): Pancreatitis twice, NIDDM type II, UTI, chronic low back pain, bulging discs, dental abscesses in past. History of Any Multi-Drug Resistant Organisms: None Reported Past Surgical History: Tubal Ligation Additional Past Surgical History / Comment(s): Age 7 had VSD repair Past Anesthesia/Blood Transfusion Reactions: No Reported Reaction Past Psychological History: No Psychological Hx Reported Smoking Status: Current every day smoker Past Alcohol Use History: None Reported Past Drug Use History: None Reported - Past Family History Mother Family Medical History: No Reported History Additional Family Medical History / Comment(s): Mother was healthy. She is , pt cannot recall cause of . Father Family Medical History: Pneumonia Additional Family Medical History / Comment(s): Father at the age of 67yrs from pneumonia General Exam Limitations: no limitations General appearance: alert, in no apparent distress Head exam: Present: normocephalic Eye exam: Present: normal appearance Neck exam: Present: normal inspection Respiratory exam: Present: normal lung sounds bilaterally, chest wall tenderness Cardiovascular Exam: Present: regular rate, normal rhythm Expanded Peripheral pulses: 2+: Radial (R), Radial (L), Dorsalis Pedis (R), Dorsalis Pedis (L) GI/Abdominal exam: Present: soft. Absent: tenderness Extremities exam: Present: normal inspection. Absent: pedal edema, calf tenderness Neurological exam: Present: alert Psychiatric exam: Present: normal affect, normal mood Skin exam: Present: normal color Course Vital Signs 10/31/19 10/31/19 13:29 15:00 Temperature 98.7 F 98.5 F Pulse Rate 64 72 Respiratory 18 18 Rate Blood Pressure 162/77 148/74 O2 Sat by Pulse 96 99 Oximetry EKG Findings - EKG Comments: EKG Findings:: Normal sinus rhythm 70. ME 14. QRS 76. QT 400. QTc 432. Normal axis. LVH. Q wave in leads V1 and V2. No acute ST change. Medical Decision Making - Medical Decision Making Patient reevaluated and resting comfortably in bed. Case discussed with Dr. Cerda, who will admit his patient with cardiology consult. Patient updated. - Lab Data Result diagrams: 10/31/19 14:26 10/31/19 14:26 Lab Results 10/31/19 10/31/19 10/31/19 Range/Units 14:26 14:26 14:26 WBC 9.0 (3.8-10.6) k/uL RBC 4.56 (3.80-5.40) m/uL Hgb 12.8 (11.4-16.0) gm/dL Hct 40.0 (34.0-46.0) % MCV 87.8 (80.0-100.0) fL MCH 28.0 (25.0-35.0) pg MCHC 31.9 (31.0-37.0) g/dL RDW 16.1 H (11.5-15.5) % Plt Count 393 (150-450) k/uL Neutrophils % 74 % Lymphocytes % 17 % Monocytes % 4 % Eosinophils % 3 % Basophils % 1 % Neutrophils # 6.7 (1.3-7.7) k/uL Lymphocytes # 1.5 (1.0-4.8) k/uL Monocytes # 0.4 (0-1.0) k/uL Eosinophils # 0.3 (0-0.7) k/uL Basophils # 0.1 (0-0.2) k/uL Anisocytosis Slight PT 9.6 (9.0-12.0) sec INR 0.9 (<1.2) APTT 22.1 (22.0-30.0) sec D-Dimer 0.25 (<0.60) mg/L FEU Sodium 136 L (137-145) mmol/L Potassium 4.9 (3.5-5.1) mmol/L Chloride 109 H (98-107) mmol/L Carbon Dioxide 19 L (22-30) mmol/L Anion Gap 8 mmol/L BUN 9 (7-17) mg/dL Creatinine 0.64 (0.52-1.04) mg/dL Est GFR (CKD-EPI)AfAm >90 (>60 ml/min/1.73 sqM) Est GFR (CKD-EPI)NonAf >90 (>60 ml/min/1.73 sqM) Glucose 342 H (74-99) mg/dL Calcium 8.7 (8.4-10.2) mg/dL Magnesium 1.6 (1.6-2.3) mg/dL Total Bilirubin 0.4 (0.2-1.3) mg/dL AST 71 H (14-36) U/L ALT 29 (4-34) U/L Alkaline Phosphatase 103 (38-126) U/L Troponin I (0.000-0.034) ng/mL Total Protein 6.1 L (6.3-8.2) g/dL Albumin 3.4 L (3.5-5.0) g/dL 10/30/ Range/Units 14:26 WBC (3.8-10.6) k/uL RBC (3.80-5.40) m/uL Hgb (11.4-16.0) gm/dL Hct (34.0-46.0) % MCV (80.0-100.0) fL MCH (25.0-35.0) pg MCHC (31.0-37.0) g/dL RDW (11.5-15.5) % Plt Count (150-450) k/uL Neutrophils % % Lymphocytes % % Monocytes % % Eosinophils % % Basophils % % Neutrophils # (1.3-7.7) k/uL Lymphocytes # (1.0-4.8) k/uL Monocytes # (0-1.0) k/uL Eosinophils # (0-0.7) k/uL Basophils # (0-0.2) k/uL Anisocytosis PT (9.0-12.0) sec INR (<1.2) APTT (22.0-30.0) sec D-Dimer (<0.60) mg/L FEU Sodium (137-145) mmol/L Potassium (3.5-5.1) mmol/L Chloride (98-107) mmol/L Carbon Dioxide (22-30) mmol/L Anion Gap mmol/L BUN (7-17) mg/dL Creatinine (0.52-1.04) mg/dL Est GFR (CKD-EPI)AfAm (>60 ml/min/1.73 sqM) Est GFR (CKD-EPI)NonAf (>60 ml/min/1.73 sqM) Glucose (74-99) mg/dL Calcium (8.4-10.2) mg/dL Magnesium (1.6-2.3) mg/dL Total Bilirubin (0.2-1.3) mg/dL AST (14-36) U/L ALT (4-34) U/L Alkaline Phosphatase (38-126) U/L Troponin I <0.012 (0.000-0.034) ng/mL Total Protein (6.3-8.2) g/dL Albumin (3.5-5.0) g/dL - Radiology Data Radiology results: image reviewed (Chest x-ray reveals minimal atelectasis) Disposition Clinical Impression: Chest pain Disposition: ADMITTED IP TO THIS HOSP Is patient prescribed a controlled substance at d/c from ED?: No Referrals: Guillermo Cerda MD [Primary Care Provider] - 1-2 days Decision Time: 15:44
[2019-10-31 14:34] LABS: Anisocytosis Slight; Basophils # (A) 0.1 k/uL (0-0.2); Basophils % (A) 1 %; Eosinophils # (A) 0.3 k/uL (0-0.7); Eosinophils % (A) 3 %; HGB 12.8 gm/dL (11.4-16.0); Lymphocytes # (A) 1.5 k/uL (1.0-4.8); Lymphocytes % (A) 17 %; MCHC 31.9 g/dL (31.0-37.0); MCV 87.8 fL (80.0-100.0); Mean Platelet Volume 7.2; Monocytes # (A) 0.4 k/uL (0-1.0); Monocytes % (A) 4 %; Neutrophils # (A) 6.7 k/uL (1.3-7.7); Neutrophils % (A) 74 %; Platelet Count 393 k/uL (150-450); RBC 4.56 m/uL (3.80-5.40); RDW 16.1 % (11.5-15.5)
[2019-10-31 14:47] LABS: ALT 29 U/L (4-34); African American GFR (CKD) >90 (>60 ml/min/1.73 sqM); Albumin 3.4 g/dL (3.5-5.0); Anion Gap 8 mmol/L; Blood Urea Nitrogen 9 mg/dL (7-17); Calcium 8.7 mg/dL (8.4-10.2); Carbon Dioxide 19 mmol/L (22-30); Chloride 109 mmol/L (98-107); Glucose 342 mg/dL (74-99); Non-African American GFR(CKD) >90 (>60 ml/min/1.73 sqM); Sodium 136 mmol/L (137-145); Total Bilirubin 0.4 mg/dL (0.2-1.3); Total Protein 6.1 g/dL (6.3-8.2)
[2019-10-31 15:00] LABS: AST 71 U/L (14-36); D-Dimer 0.25 mg/L FEU (<0.60); INR 0.9 (<1.2); Magnesium 1.6 mg/dL (1.6-2.3); Partial Thromboplastin Time 22.1 sec (22.0-30.0); Potassium 4.9 mmol/L (3.5-5.1); Prothrombin Time 9.6 sec (9.0-12.0)
[2019-10-31 15:01] LABS: Alkaline Phosphatase 103 U/L (38-126)
--- NOTE | 2019-10-31 15:03 | XR ---
EXAMINATION TYPE: XR chest 2V DATE OF EXAM: 10/31/2019 COMPARISON: 10/24/2019 HISTORY: Chest pain TECHNIQUE: FINDINGS: Heart and mediastinum are normal. There is small linear density in the left midlung. There are no hilar masses. Costophrenic angles are clear. There are chest leads. Bony thorax is intact. IMPRESSION: Minimal subsegmental atelectasis left midlung appears new compared to old exam. Normal he art.
[2019-10-31] MEDS ORDERED: NITROGLYCERIN SL TABS 0.4 MG TAB SUBLINGUAL PRN (15:44)
[2019-10-31 17:29] LABS: Glucose,Whole Blood 180 mg/dL (75-99)
[2019-10-31] MEDS: INSULIN ASPART (NovoLOG) 100 UNIT/ML VIAL SQ SCH ×2 (18:09→21:16)
[2019-10-31] MEDS: NITROGLYCERIN OINT 1 INCH/GM PACKET TOPICAL SCH (18:09)
[2019-10-31 21:15] LABS: Glucose,Whole Blood 153 mg/dL (75-99)
[2019-11-01] MEDS: ACETAMINOPHEN TAB 325 MG TAB PO PRN ×2 (01:01→08:10)
[2019-11-01] MEDS: NITROGLYCERIN OINT 1 INCH/GM PACKET TOPICAL SCH ×3 (01:02→17:13)
[2019-11-01] MEDS: traMADol 50 MG TAB PO PRN ×2 (05:15→14:53)
[2019-11-01 06:13] LABS: Cholesterol 217 mg/dL (<200); HDL Cholesterol 36 mg/dL (40-60)
[2019-11-01 06:23] LABS: Triglycerides 627 mg/dL (<150)
[2019-11-01 06:52] LABS: Glucose,Whole Blood 196 mg/dL (75-99)
[2019-11-01] MEDS: INSULIN ASPART (NovoLOG) 100 UNIT/ML VIAL SQ SCH ×6 (06:56→16:34)
[2019-11-01] MEDS ORDERED: PANTOPRAZOLE 40 MG TABLET PO SCH (09:00)
[2019-11-01] MEDS ORDERED: ASPIRIN 325 MG TAB PO SCH (09:00)
[2019-11-01] MEDS ORDERED: INSULIN DETEMIR (LEVEMIR) 100 UNIT/ML SYR SQ SCH (09:00)
--- NOTE | 2019-11-01 11:20 | P.CRDCN ---
History of Present Illness Consult date: 11/01/19 Consult reason: chest pain History of present illness: The patient is a 48-year-old female with past medical history of hypertriglyceridemia, diabetes mellitus, chronic pancreatitis, hypertension, and diabetes, who presented to the hospital with new onset of chest pressure. She states she was sitting on the side of her bed, listening to music when she experienced a squeezing sensation in her chest. She states this was not related to movement or exertion. She denies any associated dyspnea, palpitations, or dizziness. She states she did have a similar episode several months ago. Unfortunately the patient has been under increased stress due to multiple complex psychosocial issues. DIAGNOSTICS: EKG shows sinus mechanism without ST or T-wave changes Chest x-ray negative for acute cardiopulmonary process Laboratory data reviewed: CBC unremarkable. D-dimer 0.25, sodium 136, potassium 4.9, BUN 9, creatinine 0.64, glucose 342, magnesium 1.6, AST 71, ALT 29, troponins negative 3, triglycerides 627, HDL 36, LDL incalculable. Coronary angiography in March 2019 showed normal coronaries Echocardiogram in March 2019 showed normal LV function PAST MEDICAL HISTORY: Chronic pancreatitis, hypertriglyceridemia, diabetes mellitus, hypertension, obesity REVIEW OF SYSTEMS: No fever or chills. No cough or expectoration. No diaphor esis. Patient denies headache, dizziness, blurred vision, double vision. Patient denies any stomach discomfort. No nausea, vomiting. No hematochezia. No hematemesis. Denies any black stools or blood in his stools. Denies dysuria or hematuria. No muscle weakness or numbness. Positive for chest pain. PHYSICAL EXAMINATION: This is a 49-year-old female in no apparent distress at the time of my examination. HEENT: Head is atraumatic, normocephalic. Pupils are equal, round. Sclerae anicteric. Conjunctivae are clear. Mucous membranes of the mouth are moist. Neck is supple. There is no jugular venous distention. No carotid bruit is heard. CHEST EXAMINATION: Lungs are clear to auscultation. No chest wall tenderness is noted on palpation or with deep breathing. HEART EXAMINATION: Heart regular rate and rhythm. S1, S2 heard. No murmurs, gallops or rub. ABDOMEN: Soft, nontender. Bowel sounds are heard. No organomegaly noted. EXTREMITIES: 2+ peripheral pulses with no evidence of peripheral edema and no calf tenderness noted. NEUROLOGIC EXAMINATION: Patient is awake, alert and oriented x3. FINAL ASSESSMENT AND PLAN: #1 chest discomfort, atypical, ACS ruled out #2 hypertriglyceridemia, uncontrolled #3 diabetes mellitus, uncontrolled #4 hypertension, uncontrolled #5 chronic pancreatitis #6 obesity, BMI 41 PLAN: We will order a direct LDL. Initiate statin therapy, along with Zetia. Start BRANDIE inhibitor for hypertension. Recommend aggressive risk factor modification, including diabetes management. Dyslipidemia management outpatient with Dr. Laurent. Past Medical History Past Medical History: Diabetes Mellitus, GERD/Reflux, Hyperlipidemia, Syncope Additional Past Medical History / Comment(s): Pancreatitis twice, NIDDM type II, UTI, chronic low back pain, bulging discs, dental abscesses in past. History of Any Multi-Drug Resistant Organisms: None Reported Past Surgical History: Tubal Ligation Additional Past Surgical History / Comment(s): Age 7 had VSD repair Past Anesthesia/Blood Transfusion Reactions: No Reported Reaction Past Psychological History: No Psychological Hx Reported Additional Psychological History / Comment(s): She uses no assistive devices. She does not drive. She gets to appointments by walking or using the bus system. She has a glucometer at home. Smoking Status: Current every day smoker Past Alcohol Use History: None Reported Additional Past Alcohol Use History / Comment(s): Pt started smoking in 2000- smokes 5 cigarettes a day. Past Drug Use History: None Reported - Past Family History Mother Family Medical History: No Reported History Additional Family Medical History / Comment(s): Mother was healthy. She is , pt cannot recall cause of . Father Family Medical History: Pneumonia Additional Family Medical History / Comment(s): Father at the age of 67yrs from pneumonia Medications and Allergies Home Medications Medication Instructions Recorded Confirmed Type Fenofibrate [Lofibra] 160 mg PO DAILY #30 tab 03/23/19 10/31/19 Rx Insulin Detemir (Levemir) [Levemir] 20 unit SQ DAILY 04/11/19 10/31/19 History traMADol HCl [Ultram] 1 tab PO Q6H PRN 04/25/19 10/31/19 History Pantoprazole [Protonix] 40 mg PO DAILY #30 tablet. 04/29/19 10/31/19 Rx Atorvastatin [Lipitor] 80 mg PO HS 06/25/19 10/31/19 History Ergocalciferol (Vitamin D2) 50,000 unit PO TU 06/25/19 10/31/19 History [Drisdol] INSULIN ASPART (NovoLOG) [NovoLOG 6 unit SQ TID-W/MEALS 06/25/19 10/31/19 History (formulary)] Butalbital/Aspirin/Caffeine 1 cap PO Q4H PRN 10/24/19 10/31/19 History [Uzgbqcwtce-QUJ-Xrrsrdor Cap 50-325-40] Allergies Allergy/AdvReac Type Severity Reaction Status Date / Time No Known Allergies Allergy Verified 10/31/19 16:22 Physical Exam Vitals: Vital Signs Temp Pulse Pulse Resp BP BP BP 11/01/19 09:00 97.2 F L 64 18 136/85 11/01/19 04:50 98.2 F 56 L 17 133/80 11/01/19 01:00 57 L 166/85 10/31/19 19:27 99.2 F 60 20 152/81 10/31/19 17:34 98.2 F 63 16 162/72 10/31/19 16:00 98.5 F 78 18 130/68 10/31/19 15:00 98.5 F 72 18 148/74 10/31/19 13:29 98.7 F 64 18 162/77 Pulse Ox 11/01/19 09:00 11/01/19 04:50 96 11/01/19 01:00 10/31/19 19:27 97 10/31/19 17:34 97 10/31/19 16:00 98 10/31/19 15:00 99 10/31/19 13:29 96 Intake and Output 10/31/19 11/01/19 11/01/19 22:59 06:59 14:59 Intake Total 240 Balance 240 Intake: Oral 240 Other: Voiding Method Toilet Toilet # Voids 1 1 # Bowel Movements 1 Weight 97.069 kg Results 10/31/19 14:26 10/31/19 14:26 Cardiac Enzymes 10/31/19 10/31/19 10/31/19 Range/Units 14:26 14:26 17:41 AST 71 H (14-36) U/L Troponin I <0.012 <0.012 (0.000-0.034) ng/mL 10/31/19 Range/Units 20:10 AST (14-36) U/L Troponin I <0.012 (0.000-0.034) ng/mL Coagulation 10/31/19 Range/Units 14:26 PT 9.6 (9.0-12.0) sec APTT 22.1 (22.0-30.0) sec Lipids 11/01/19 Range/Units 05:21 Triglycerides 627 H (<150) mg/dL Cholesterol 217 H (<200) mg/dL HDL Cholesterol 36 L (40-60) mg/dL CBC 10/31/19 Range/Units 14:26 WBC 9.0 (3.8-10.6) k/uL RBC 4.56 (3.80-5.40) m/uL Hgb 12.8 (11.4-16.0) gm/dL Hct 40.0 (34.0-46.0) % Plt Count 393 (150-450) k/uL Comprehensive Metabolic Panel 10/31/19 Range/Units 14:26 Sodium 136 L (137-145) mmol/L Potassium 4.9 (3.5-5.1) mmol/L Chloride 109 H (98-107) mmol/L Carbon Dioxide 19 L (22-30) mmol/L BUN 9 (7-17) mg/dL Creatinine 0.64 (0.52-1.04) mg/dL Glucose 342 H (74-99) mg/dL Calcium 8.7 (8.4-10.2) mg/dL AST 71 H (14-36) U/L ALT 29 (4-34) U/L Alkaline Phosphatase 103 (38-126) U/L Total Protein 6.1 L (6.3-8.2) g/dL Albumin 3.4 L (3.5-5.0) g/dL Current Medications Generic Name Dose Route Start Last Admin Trade Name Freq PRN Reason Stop Dose Admin Acetaminophen 650 mg 10/31/19 23:46 11/01/19 08:10 Tylenol Tab PO 650 mg Q4HR PRN Administration Fever and/ or Pain Aspirin 325 mg 11/01/19 09:00 11/01/19 08:10 Aspirin PO 325 mg DAILY YARON Administration Insulin Aspart 0 unit 10/31/19 17:30 11/01/19 06:56 Novolog SQ 2 unit ACHS YARON Administration Protocol Insulin Aspart 6 unit 11/01/19 07:30 11/01/19 08:13 Novolog SQ 6 unit TID-W/MEALS YARON Administration Insulin Detemir 20 unit 11/01/19 09:00 Levemir SQ DAILY YARON Nitroglycerin 0.4 mg 10/31/19 15:44 Nitrostat SUBLINGUAL Q5M PRN Chest Pain Nitroglycerin 1 inch 10/31/19 18:00 11/01/19 06:57 Nitro-Bid Oint TOPICAL 1 inch Q6HR YARON Administration Pantoprazole Sodium 40 mg 11/01/19 09:00 11/01/19 08:11 Protonix PO 40 mg DAILY [facility] Administration Sodium Chloride 10 ml 10/31/19 21:00 10/31/19 21:17 Saline Flush IV 10 ml BID YARON Administration Tramadol HCl 50 mg 11/01/19 00:00 11/01/19 05:15 Ultram PO 50 mg Q6H PRN Administration Pain Intake and Output 10/31/19 11/01/19 11/01/19 22:59 06:59 14:59 Intake Total 240 Balance 240 Intake: Oral 240 Other: Voiding Method Toilet Toilet # Voids 1 1 # Bowel Movements 1 Weight 97.069 kg 10/31/19 14:26 10/31/19 14:26
[2019-11-01 11:43] LABS: Glucose,Whole Blood 215 mg/dL (75-99)
[2019-11-01] MEDS ORDERED: lisinopriL 5 MG TAB PO SCH (11:45)
[2019-11-01] MEDS ORDERED: EZETIMIBE 10 MG TAB PO SCH (11:45)
[2019-11-01 15:00] VITALS: BP 136/83; PULSE 62; RESP 16; TEMP 98.6
[2019-11-01 16:01] LABS: Glucose,Whole Blood 154 mg/dL (75-99)
[2019-11-01] MEDS ORDERED: FIORINAL PO PRN (18:47)
[2019-11-01] MEDS ORDERED: ATORVASTATIN 40 MG TAB PO SCH (21:00)
[2019-11-01] MEDS ORDERED: ATORVASTATIN 80 MG TAB PO SCH (21:00)
--- NOTE | 2019-11-01 22:09 | HP ---
HISTORY AND PHYSICAL CHIEF COMPLAINT: Chest pain. HISTORY OF PRESENT ILLNESS: This is another admission for this 49-year-old obese white female with insulin- dependent diabetes mellitus. She is very noncompliant and only shows up in the office rarely. Apparently she was sitting quietly when she developed a headache and sharp anterior chest pain and came to the emergency room. The pain was fleeting. It was not related to movement and she had no fever and chills, cough, hemoptysis, diaphoresis, shortness of breath, nausea, vomiting, etc. In the emergency room, her workup was negative. She was admitted for observation. She has undergone a cardiac evaluation in the past. She has no history of cardiac disease. REVIEW OF SYSTEMS: She has had no other symptoms. She has had no neurologic problems or change in vision or hearing. She has had no abdominal pain. She does have a history of pancreatitis. She has had no melena, hematochezia, indigestion, incontinence, etc. She states she is taking her medications including insulin, but it is not likely that she has being very compliant. Laboratory studies revealed triglycerides of 627, total cholesterol 217, HDL 36. LDL could not be calculated. CBC was normal and electrolytes were also. Blood sugars 342 on admission. Her troponin was negative. Remainder of her history is unremarkable. PHYSICAL EXAMINATION: Blood pressure is 136/85, pulse 64, respirations of 18. She is afebrile. In general, she appeared to be obese, in no acute distress. Skin color is normal. Skin is warm, dry. Lymph nodes not enlarged. Head, ears, eyes, nose, mouth, and throat were normal. Neck veins are not distended. Thyroid not enlarged. Chest is clear. Cardiac exam is normal and no murmurs or extra sounds. There are no rubs. The abdomen is protuberant, soft and nontender without any masses or visceromegaly. Bowel sounds present. Extremities are normal. Neurological: She is intact. IMPRESSION: She is admitted to the hospital with diagnoses of: 1. Atypical chest pain. 2. Uncontrolled insulin-dependent diabetes mellitus. 3. History of pancreatitis. PLAN: 1. Bed rest. 2. IV fluids. 3. Consult with Cardiology. 4. Ascertain that there is no other etiology for her atypical chest pain. MMODL / IJN: [id number] /
--- NOTE | 2019-11-01 23:24 | DS ---
DISCHARGE SUMMARY CHIEF COMPLAINT: Atypical chest pain. HISTORY OF PRESENT ILLNESS AND PHYSICAL EXAMINATION: Details of this lady's history and physical can be found in the initial workup. LABORATORY STUDIES: While she was in a hospital she had laboratory studies, details of which can be found in the laboratory section of her chart. COURSE IN THE HOSPITAL: After admission she was placed on bedrest, started on intravenous fluids and she had serial EKGs and enzymes and she was seen by Cardiology. It was felt under the circumstances and having had prior workups, that she could be discharged to outpatient management. She says she is coming into the office soon, but she never does. FINAL DIAGNOSES: 1. Atypical chest pain. 2. Uncontrolled type 2, insulin, diabetes mellitus. 3. Obesity. 4. Hypertriglyceridemia. 5. History of pancreatitis. OPERATIONS: None. CONSULTATIONS: Cardiology. She is improved. JUAN / GOOD: [id number] /
[2019-11-02] MEDS ORDERED: FENOFIBRATE 160 MG TAB PO SCH (09:00)
[2019-11-03] MEDS ORDERED: ERGOCALCIFEROL 50,000 UNIT CAP PO SCH (09:00)
--- NOTE | 2019-11-05 09:22 | CDI ---
Date: 11.05.2019 CDS/Contract Preparer Name: Perla Ventura Phone: If any questions, call Miguelina Laughlin Web User Experience Strategist at [phone] Patient Name: Dayna Le Admit Date: 10.31.19 Discharge Date: 11.01.19 ATTENTION: The [facility] Coding Staff appreciate your assistance in clarifying documentation. Please respond to the clarification below the line at the bottom and electronically sign. The [facility] Coding staff will review the response and follow-up if needed. Please note: Queries are made part of the Legal Health Record. If you have any questions, please contact the Web User Experience Strategist. Dear Dr. Cerda In your discharge summary and H&P you have documented uncontrolled type 2, DM and that on admission (10.31.19) her blood sugar was 342 Please specify: __Hyperglycemia __Hypoglycemia Thank you for your kind consideration. MTDD
--- NOTE | 2019-11-06 03:17 | MISC ---
MISCELLANOUS REPORT QUERY: Hyperglycemia. MMODL / IJN: [id number] /
== END 2019-11-01 20:36 | disposition home or self-care (01) ==
LOC: EC 13:17 → 3NCARDOBS 15:44
PROVIDERS: ADMIT Family Medicine; ATTEND Family Medicine
DX: R07.89 Other chest pain (principal); R51 Headache; E11.65 Type 2 diabetes mellitus with hyperglycemia; E66.9 Obesity, unspecified; E78.1 Pure hyperglyceridemia; K86.1 Other chronic pancreatitis; J98.11 Atelectasis; I11.9 Hypertensive heart disease without heart failure; K21.9 Gastro-esophageal reflux disease without esophagitis; E78.5 Hyperlipidemia, unspecified; G89.29 Other chronic pain; M54.5 Low back pain; M51.9 Unspecified thoracic, thoracolumbar and lumbosacral intervertebral disc disorder; F17.210 Nicotine dependence, cigarettes, uncomplicated; Z91.19 Patient's noncompliance with other medical treatment and regimen; Z68.41 Body mass index [BMI] 40.0-44.9, adult; Z03.818 Encounter for observation for suspected exposure to other biological agents ruled out; Z79.4 Long term (current) use of insulin; Z79.891 Long term (current) use of opiate analgesic; Z79.899 Other long term (current) drug therapy; Z87.440 Personal history of urinary (tract) infections; Z86.19 Personal history of other infectious and parasitic diseases; Z98.51 Tubal ligation status; Z87.74 Personal history of (corrected) congenital malformations of heart and circulatory system; Z82.5 Family history of asthma and other chronic lower respiratory diseases
CPT/HCPCS: 93005 ×2; 99285; 36415; 85379; 80061; 80053; 83735; 84484; 85025; 85610; 85730; 83721; 71046; G0378 ×2; U0003

== ENCOUNTER 2020-04-03 18:18 | Emergency (ER) | payer MEDICARE ==
[2020-04-03 18:21] VITALS: BP 137/79; PULSE 83; RESP 18; TEMP 99.2
[2020-04-03] MEDS ORDERED: HYDROcodone/APAP 5-325MG 1 EACH TAB PO STA (18:32)
--- NOTE | 2020-04-03 18:32 | ED ---
General Adult HPI - General Chief complaint: Back Pain/Injury Stated complaint: Back Pain Time Seen by Provider: 04/03/20 18:25 Source: patient, EMS Mode of arrival: EMS Limitations: no limitations - History of Present Illness Initial comments: Dictation was produced using [employer] dictation software. please excuse any grammatical, word or spelling errors. This patient was cared for during a federal and state declared state of emergency secondary to Covid 19 Chief Complaint: 49-year-old female with chronic back pain presents with back pain and medication refill. History of Present Illness: 49-year-old female she was brought in by EMS. Patient states she has lower back pain. She suffers from chronic back pain. She has a back pain management by her primary care physician Dr. Cerda. She states she ran out of her tramadol. Patient has any trauma to the back. Denies any fever, chills or night sweats. Denies any urinary retention she reports that her symptoms are worse with certain movements. States that her chronic back pain is from a accident several years ago. The ROS documented in this emergency department record has been reviewed and confirmed by me. Those systems with pertinent positive or negative responses have been documented in the HPI. All other systems are other negative and/or noncontributory. PHYSICAL EXAM: General Impression: Alert and oriented x3, not in acute distress HEENT: Normocephalic atraumatic, extra-ocular movements intact, pupils equal and reactive to light bilaterally, mucous membranes moist. Cardiovascular: Heart regular rate and rhythm Chest: Able to complete full sentences, no retractions, no tachypnea Abdomen: abdomen soft, non-tender, non-distended, no organomegaly Musculoskeletal: Pulses present and equal in all extremities, no peripheral edema Motor: no focal deficits noted Neurological: CN II-XII grossly intact, no focal motor or sensory deficits noted, ambulatory with minimal complications Skin: Intact with no visualized rashes Psych: Normal affect and mood ED course: 49-year-old female presents emergency department for back pain and refill for medications. Signs upon arrival are within acceptable limits. Patient does not have any red flag symptoms. Physical examination is benign. Patient given prescription for [place]. Patient will be discharged. - Related Data Home Medications Medication Instructions Recorded Confirmed Insulin Detemir (Levemir) [Levemir] 20 unit SQ DAILY 04/11/19 10/31/19 Atorvastatin [Lipitor] 80 mg PO HS 06/25/19 10/31/19 Ergocalciferol (Vitamin D2) 50,000 unit PO TU 06/25/19 10/31/19 [Drisdol] INSULIN ASPART (NovoLOG) [NovoLOG 6 unit SQ TID-W/MEALS 06/25/19 10/31/19 (formulary)] Previous Rx's Medication Instructions Recorded Fenofibrate [Lofibra] 160 mg PO DAILY #30 tab 03/23/19 Pantoprazole [Protonix] 40 mg PO DAILY #30 tablet. 04/29/19 HYDROcodone/APAP 5-325MG [[place] 1 tab PO Q6HR PRN 3 Days #12 tab 04/03/20 5-325] Allergies Allergy/AdvReac Type Severity Reaction Status Date / Time No Known Allergies Allergy Verified 10/31/19 16:22 Review of Systems ROS Statement: Those systems with pertinent positive or pertinent negative responses have been documented in the HPI. ROS Other: All systems not noted in ROS Statement are negative. Past Medical History Past Medical History: Diabetes Mellitus, GERD/Reflux, Hyperlipidemia, Syncope Additional Past Medical History / Comment(s): Pancreatitis twice, NIDDM type II, UTI, chronic low back pain, bulging discs, dental abscesses in past. History of Any Multi-Drug Resistant Organisms: None Reported Past Surgical History: Tubal Ligation Additional Past Surgical History / Comment(s): Age 7 had VSD repair Past Anesthesia/Blood Transfusion Reactions: No Reported Reaction Past Psychological History: No Psychological Hx Reported Smoking Status: Current every day smoker Past Alcohol Use History: None Reported Past Drug Use History: None Reported - Past Family History Mother Family Medical History: No Reported History Additional Family Medical History / Comment(s): Mother was healthy. She is , pt cannot recall cause of . Father Family Medical History: Pneumonia Additional Family Medical History / Comment(s): Father at the age of 67yrs from pneumonia General Exam Limitations: no limitations Course Vital Signs 04/03/20 18:19 Temperature 99.2 F Pulse Rate 83 Respiratory 18 Rate Blood Pressure 137/79 O2 Sat by Pulse 97 Oximetry Disposition Clinical Impression: Back pain Disposition: HOME SELF-CARE Condition: Good Instructions (If sedation given, give patient instructions): Acute Low Back Pain (ED) Prescriptions: HYDROcodone/APAP 5-325MG [[place] 5-325] 1 tab PO Q6HR PRN 3 Days #12 tab PRN Reason: Severe Pain Is patient prescribed a controlled substance at d/c from ED?: Yes If prescribed controlled substance>3 days was MAPS reviewed?: Prescribed <3 Days Referrals: Guillermo Cerda MD [Primary Care Provider] - 1-2 days Time of Disposition: 18:32
== END 2020-04-03 18:49 | disposition home or self-care (01) ==
LOC: EC 18:18
DX: G89.29 Other chronic pain (principal); M54.5 Low back pain; E11.9 Type 2 diabetes mellitus without complications; E78.5 Hyperlipidemia, unspecified; F17.200 Nicotine dependence, unspecified, uncomplicated; Z76.0 Encounter for issue of repeat prescription; Z79.4 Long term (current) use of insulin; Z79.899 Other long term (current) drug therapy
CPT/HCPCS: 99283

== ENCOUNTER 2020-09-24 13:51 | Observation (INO) | payer MEDICARE, OTHER ==
[2020-09-24 14:49] LABS: Anisocytosis Slight; Basophils # (A) 0.1 k/uL (0-0.2); Basophils % (A) 1 %; Eosinophils # (A) 0.3 k/uL (0-0.7); Eosinophils % (A) 3 %; HCT 38.2 % (34.0-46.0); HGB 12.4 gm/dL (11.4-16.0); Lymphocytes % (A) 22 %; MCH 27.1 pg (25.0-35.0); MCHC 32.5 g/dL (31.0-37.0); MCV 83.4 fL (80.0-100.0); Mean Platelet Volume 7.1; Monocytes # (A) 0.4 k/uL (0-1.0); Monocytes % (A) 5 %; Neutrophils # (A) 6.2 k/uL (1.3-7.7); Neutrophils % (A) 69 %; Platelet Count 518 k/uL (150-450); RBC 4.58 m/uL (3.80-5.40); RDW 17.5 % (11.5-15.5)
[2020-09-24 14:54] LABS: Appearance,Urine Cloudy (Clear); Bacteria,Urine Occasional /hpf; Bilirubin,Urine Negative (Negative); Blood,Urine Negative (Negative); Color,Urine Yellow; Glucose,Urine (UA) Negative (Negative); Ketones,Urine Negative (Negative); Leukocyte Esterase,Urine Negative (Negative); Mucus,Urine Rare /hpf; Nitrite,Urine Negative (Negative); Protein,Urine 1+ (Negative); RBC,Urine 3 /hpf (0-5); Specific Gravity,Urine 1.016 (1.001-1.035); Squamous Epithelial Cell,Urine 11 /hpf (0-4); Urobilinogen,Urine <2.0 mg/dL (<2.0); WBC,Urine 7 /hpf (0-5)
[2020-09-24 14:56] LABS: ALT 28 U/L (4-34); AST 44 U/L (14-36); African American GFR (CKD) >90 (>60 ml/min/1.73 sqM); Albumin 3.9 g/dL (3.5-5.0); Alkaline Phosphatase 84 U/L (38-126); Amylase 42 U/L (30-110); Anion Gap 13 mmol/L; Blood Urea Nitrogen 8 mg/dL (7-17); Calcium 8.3 mg/dL (8.4-10.2); Carbon Dioxide 24 mmol/L (22-30); Chloride 103 mmol/L (98-107); Glucose 259 mg/dL (74-99); Lipase 263 U/L (23-300); Non-African American GFR(CKD) >90 (>60 ml/min/1.73 sqM); Potassium 4.3 mmol/L (3.5-5.1); Sodium 140 mmol/L (137-145); Total Bilirubin 0.3 mg/dL (0.2-1.3); Total Protein 6.5 g/dL (6.3-8.2)
[2020-09-24] MEDS ORDERED: SODIUM CHLORIDE 0.9% 500 ML 500 ML IV ONE (15:37)
[2020-09-24] MEDS ORDERED: SODIUM CHLORIDE 0.9% 1,000 ML IV ONE (15:37)
--- NOTE | 2020-09-24 15:39 | CT ---
EXAMINATION TYPE: CT abdomen pelvis w con DATE OF EXAM: 09/24/2020 COMPARISON: Ultrasound 06/06/2019. HISTORY: lower abd pain x3 days CT DLP: 2223.8 mGycm Automated exposure control for dose reduction was used. TECHNIQUE: Helical acquisition of images was performed from the lung bases through the pelvis. CONTRAST: Performed without Oral Contrast and with IV Contrast, patient injected with 100 mL of Isovue 300. FINDINGS: LUNG BASES: No significant abnormality is appreciated. LIVER/GB: No acute abnormality is appreciated. Hepatic steatosis. PANCREAS: No significant abnormality is seen. SPLEEN: No significant abnormality is seen. ADRENALS: No significant abnormality is seen. KIDNEYS: No significant abnormality is seen. FREE AIR: No free air is visualized. RETROPERITONEAL ADENOPATHY: None visualized REPRODUCTIVE ORGANS: No significant abnormality is seen URINARY BLADDER: No significant abnormality is seen. PELVIC ADENOPATHY: None visualized. OSSEOUS STRUCTURES: No significant abnormality is seen. BOWEL: No significant abnormality is seen. OTHER: Bilateral tubal ligation clips seen. IMPRESSION: NO ACUTE ABNORMALITY. HEPATIC STEATOSIS.
--- NOTE | 2020-09-24 15:46 | ED ---
Abdominal Pain HPI - General Chief Complaint: Abdominal Pain Stated Complaint: Abd pain Time Seen by Provider: 09/24/20 14:03 Source: patient, RN notes reviewed Mode of arrival: EMS Limitations: no limitations - History of Present Illness Initial Comments: Patient is a 50-year-old female that presents to emergency room complaining of nausea and vomiting for the past several days. She notes that she has generalized abdominal discomfort across the middle of her abdomen. She denied any constipation or diarrhea type symptoms. She did not appear to be in any distress or pain. Patient answered interview questions with short answers. She denied any history of abdominal issues. She denied chest pain short of breath headache diarrhea constipation fever fatigue chills hematochezia melena hematocrit emesis. - Related Data Home Medications Medication Instructions Recorded Confirmed Insulin Detemir (Levemir) [Levemir] 20 unit SQ DAILY 04/11/19 10/31/19 Atorvastatin [Lipitor] 80 mg PO HS 06/25/19 10/31/19 Ergocalciferol (Vitamin D2) 50,000 unit PO TU 06/25/19 10/31/19 [Drisdol (50,000 Iu)] INSULIN ASPART (NovoLOG) [NovoLOG 6 unit SQ TID-W/MEALS 06/25/19 10/31/19 (formulary)] Previous Rx's Medication Instructions Recorded Fenofibrate [Lofibra] 160 mg PO DAILY #30 tab 03/23/19 Pantoprazole [Protonix] 40 mg PO DAILY #30 tablet. 04/29/19 HYDROcodone/APAP 5-325MG [[place] 1 tab PO Q6HR PRN 3 Days #12 tab 04/03/20 5-325] Allergies Allergy/AdvReac Type Severity Reaction Status Date / Time No Known Allergies Allergy Verified 09/24/20 13:56 Review of Systems ROS Statement: Those systems with pertinent positive or pertinent negative responses have been documented in the HPI. ROS Other: All systems not noted in ROS Statement are negative. Past Medical History Past Medical History: Diabetes Mellitus, GERD/Reflux, Hyperlipidemia, Syncope Additional Past Medical History / Comment(s): Pancreatitis twice, NIDDM type II, UTI, chronic low back pain, bulging discs, dental abscesses in past. History of Any Multi-Drug Resistant Organisms: None Reported Past Surgical History: Tubal Ligation Additional Past Surgical History / Comment(s): Age 7 had VSD repair Past Anesthesia/Blood Transfusion Reactions: No Reported Reaction Past Psychological History: No Psychological Hx Reported Smoking Status: Current every day smoker Past Alcohol Use History: None Reported Past Drug Use History: None Reported - Past Family History Mother Family Medical History: No Reported History Additional Family Medical History / Comment(s): Mother was healthy. She is , pt cannot recall cause of . Father Family Medical History: Pneumonia Additional Family Medical History / Comment(s): Father at the age of 67yrs from pneumonia General Exam Limitations: no limitations General appearance: alert, in no apparent distress, obese Head exam: Present: atraumatic, normocephalic, normal inspection Eye exam: Present: normal appearance, PERRL, EOMI. Absent: scleral icterus, conjunctival injection, periorbital swelling Neck exam: Present: normal inspection Respiratory exam: Present: normal lung sounds bilaterally. Absent: respiratory distress, wheezes, rales, rhonchi, stridor Cardiovascular Exam: Present: regular rate, normal rhythm, normal heart sounds. Absent: systolic murmur, diastolic murmur, rubs, gallop, clicks GI/Abdominal exam: Present: soft, normal bowel sounds, other (Generalized discomfort across the entire abdomen to palpation). Absent: distended, tenderness, guarding, rebound, rigid Extremities exam: Present: normal inspection, full ROM, normal capillary refill. Absent: tenderness, pedal edema, joint swelling, calf tenderness Neurological exam: Present: alert, oriented X3 Psychiatric exam: Present: normal affect, normal mood Skin exam: Present: warm, dry, intact, normal color. Absent: rash Course Vital Signs 09/24/20 09/24/20 09/24/20 13:54 15:37 17:40 Temperature 98.7 F Pulse Rate 71 60 Respiratory 16 16 16 Rate Blood Pressure 142/82 137/75 O2 Sat by Pulse 96 98 Oximetry 09/24/20 18:32 Temperature 98.6 F Pulse Rate 63 Respiratory 18 Rate Blood Pressure 145/85 O2 Sat by Pulse 97 Oximetry Medical Decision Making - Medical Decision Making 50-year-old female complaining of abdominal pain with nausea and vomiting for the past several days. Labs, CT of the abdomen pelvis, 1 L normal saline, 4 mg of Zofran ordered. Labs: Lactic acid 3.6. 1500 mL of normal saline ordered we'll recheck lactic. Rest of labs unremarkable. Case discussed with Dr. Nugent, patient will be admitted for observation. Dr. Cerda was consulted and agrees the patient should be admitted for observation for pancreatitis and lactic acidosis. - Lab Data Result diagrams: 09/24/20 14:29 09/24/20 14:29 Lab Results 09/24/20 09/24/20 09/24/20 Range/Units 14:29 14:29 14:29 WBC 9.0 (3.8-10.6) k/uL RBC 4.58 (3.80-5.40) m/uL Hgb 12.4 (11.4-16.0) gm/dL Hct 38.2 (34.0-46.0) % MCV 83.4 (80.0-100.0) fL MCH 27.1 (25.0-35.0) pg MCHC 32.5 (31.0-37.0) g/dL RDW 17.5 H (11.5-15.5) % Plt Count 518 H (150-450) k/uL MPV 7.1 Neutrophils % 69 % Lymphocytes % 22 % Monocytes % 5 % Eosinophils % 3 % Basophils % 1 % Neutrophils # 6.2 (1.3-7.7) k/uL Lymphocytes # 2.0 (1.0-4.8) k/uL Monocytes # 0.4 (0-1.0) k/uL Eosinophils # 0.3 (0-0.7) k/uL Basophils # 0.1 (0-0.2) k/uL Anisocytosis Slight Sodium 140 (137-145) mmol/L Potassium 4.3 (3.5-5.1) mmol/L Chloride 103 (98-107) mmol/L Carbon Dioxide 24 (22-30) mmol/L Anion Gap 13 mmol/L BUN 8 (7-17) mg/dL Creatinine 0.71 (0.52-1.04) mg/dL Est GFR (CKD-EPI)AfAm >90 (>60 ml/min/1.73 sqM) Est GFR (CKD-EPI)NonAf >90 (>60 ml/min/1.73 sqM) Glucose 259 H (74-99) mg/dL Lactic Ac Sepsis Rflx Plasma Lactic Acid Travon (0.7-2.0) mmol/L Calcium 8.3 L (8.4-10.2) mg/dL Total Bilirubin 0.3 (0.2-1.3) mg/dL AST 44 H (14-36) U/L ALT 28 (4-34) U/L Alkaline Phosphatase 84 (38-126) U/L Total Protein 6.5 (6.3-8.2) g/dL Albumin 3.9 (3.5-5.0) g/dL Amylase 42 (30-110) U/L Lipase 263 (23-300) U/L Urine Color Yellow Urine Appearance Cloudy H (Clear) Urine pH 6.0 (5.0-8.0) Ur Specific [place] 1.016 (1.001-1.035) Urine Protein 1+ H (Negative) Urine Glucose (UA) Negative (Negative) Urine Ketones Negative (Negative) Urine Blood Negative (Negative) Urine Nitrite Negative (Negative) Urine Bilirubin Negative (Negative) Urine Urobilinogen <2.0 (<2.0) mg/dL Ur Leukocyte Esterase Negative (Negative) Urine RBC 3 (0-5) /hpf Urine WBC 7 H (0-5) /hpf Ur Squamous Epith Cells 11 H (0-4) /hpf Urine Bacteria Occasional H (None) /hpf Urine Mucus Rare H (None) /hpf 09/24/20 09/24/20 09/24/20 Range/Units 14:29 15:18 17:32 WBC (3.8-10.6) k/uL RBC (3.80-5.40) m/uL Hgb (11.4-16.0) gm/dL Hct (34.0-46.0) % MCV (80.0-100.0) fL MCH (25.0-35.0) pg MCHC (31.0-37.0) g/dL RDW (11.5-15.5) % Plt Count (150-450) k/uL MPV Neutrophils % % Lymphocytes % % Monocytes % % Eosinophils % % Basophils % % Neutrophils # (1.3-7.7) k/uL Lymphocytes # (1.0-4.8) k/uL Monocytes # (0-1.0) k/uL Eosinophils # (0-0.7) k/uL Basophils # (0-0.2) k/uL Anisocytosis Sodium (137-145) mmol/L Potassium (3.5-5.1) mmol/L Chloride (98-107) mmol/L Carbon Dioxide (22-30) mmol/L Anion Gap mmol/L BUN (7-17) mg/dL Creatinine (0.52-1.04) mg/dL Est GFR (CKD-EPI)AfAm (>60 ml/min/1.73 sqM) Est GFR (CKD-EPI)NonAf (>60 ml/min/1.73 sqM) Glucose (74-99) mg/dL Lactic Ac Sepsis Rflx Y Plasma Lactic Acid [place]on 3.6 H* 2.7 H* (0.7-2.0) mmol/L Calcium (8.4-10.2) mg/dL Total Bilirubin (0.2-1.3) mg/dL AST (14-36) U/L ALT (4-34) U/L Alkaline Phosphatase (38-126) U/L Total Protein (6.3-8.2) g/dL Albumin (3.5-5.0) g/dL Amylase (30-110) U/L Lipase (23-300) U/L Urine Color Urine Appearance (Clear) Urine pH (5.0-8.0) Ur Specific [place] (1.001-1.035) Urine Protein (Negative) Urine Glucose (UA) (Negative) Urine Ketones (Negative) Urine Blood (Negative) Urine Nitrite (Negative) Urine Bilirubin (Negative) Urine Urobilinogen (<2.0) mg/dL Ur Leukocyte Esterase (Negative) Urine RBC (0-5) /hpf Urine WBC (0-5) /hpf Ur Squamous Epith Cells (0-4) /hpf Urine Bacteria (None) /hpf Urine Mucus (None) /hpf - Radiology Data Radiology results: report reviewed, image reviewed CT of the abdomen and pelvis: No acute abnormality. Hepatic steatosis. Disposition Clinical Impression: Lactic acidosis, Acute pancreatitis Disposition: ADMITTED IP TO THIS HOSP Condition: Stable Is patient prescribed a controlled substance at d/c from ED?: No Referrals: Guillermo Cerda MD [Primary Care Provider] - 1-2 days Time of Disposition: 19:35
[2020-09-24] MEDS ORDERED: NALOXONE 0.4 MG/ML 1 ML VIAL IV PRN (19:27)
[2020-09-24] MEDS ORDERED: MORPHINE SULFATE 4 MG/ML SYRINGE IVP STA (19:45)
[2020-09-24] MEDS: SODIUM CHLORIDE 0.9% 1,000 ML IV SCH (19:48)
[2020-09-24] MEDS: HYDROmorphone 0.5 MG/0.5 ML SYRINGE IVP PRN (23:22)
[2020-09-24 23:53] LABS: Chol/HDL Ratio 6.16; LDL Cholesterol,Calculated 76.2 mg/dL (0.0-131.0); VLDL Calculation 52.8 mg/dL (5.00-40.00)
[2020-09-25 01:59] LABS: Glucose,Whole Blood 126 mg/dL (75-99)
[2020-09-25] MEDS: HYDROmorphone 0.5 MG/0.5 ML SYRINGE IVP PRN ×3 (05:58→20:26)
[2020-09-25 07:22] LABS: Glucose,Whole Blood 167 mg/dL (75-99)
[2020-09-25 12:02] LABS: Glucose,Whole Blood 163 mg/dL (75-99)
[2020-09-25 17:10] LABS: Anisocytosis Slight; Basophils % (A) 0 %; Eosinophils # (A) 0.2 k/uL (0-0.7); Eosinophils % (A) 3 %; HCT 35.1 % (34.0-46.0); HGB 11.5 gm/dL (11.4-16.0); Lymphocytes # (A) 1.8 k/uL (1.0-4.8); Lymphocytes % (A) 24 %; MCH 27.4 pg (25.0-35.0); MCHC 32.7 g/dL (31.0-37.0); MCV 83.7 fL (80.0-100.0); Mean Platelet Volume 6.6; Monocytes # (A) 0.3 k/uL (0-1.0); Monocytes % (A) 4 %; Neutrophils # (A) 5.2 k/uL (1.3-7.7); Neutrophils % (A) 69 %; Platelet Count 395 k/uL (150-450); RDW 17.7 % (11.5-15.5); WBC 7.5 k/uL (3.8-10.6)
[2020-09-25 17:25] LABS: Glucose,Whole Blood 210 mg/dL (75-99)
--- NOTE | 2020-09-25 19:08 | HP ---
HISTORY AND PHYSICAL CHIEF COMPLAINT: Abdominal pain and elevated lactic acid. HISTORY OF PRESENT ILLNESS: This is another admission for this obese lady who is an insulin-dependent diabetic. She has been having some difficulty with nausea, vomiting, and stomach cramps for the last several days and we have been working with her on via680. She finally came to the emergency room where basically her studies and vital signs were unremarkable. She had an elevated lactic acid. She has had no fever, chills, cough, hematemesis, melena, hematochezia, jaundice, dysuria, frequency, urgency, etc. Blood sugars have not been elevated. Past medical history, family history, personal and social histories are otherwise unremarkable and noncontributory. She has had problems in the past with pancreatitis which may be related to hypertriglyceridemia. PHYSICAL EXAMINATION: Blood pressure 130/72 with a pulse of 85, respirations of 25. She is afebrile. In general, she appeared to be overweight, in no acute distress. Skin color is normal skin is warm, dry. Lymph nodes are not enlarged. Head, ears, eyes, nose, mouth and throat were normal. Neck veins are not distended. Thyroid not enlarged. Chest is clear. Cardiac exam is normal sinus rhythm and no murmurs or extra sounds. The abdomen is slightly protuberant and she has some mild generalized tenderness, which is a little bit more prominent in the left lower quadrant. There are no masses. Bowel sounds are present. There is no rebound or referred tenderness. Extremities: Normal. Neurologically she is intact. IMPRESSION: She is admitted to the hospital with diagnoses: 1. Crampy abdominal pain with nausea, vomiting, diarrhea. 2. Insulin-dependent diabetes mellitus. 3. Hypertriglyceridemia. 4. Elevated lactic acid. PLAN: 1. Bedrest. 2. IV fluids. 3. CT abdomen and pelvis. 4. Monitor her vital signs, laboratory studies and abdominal findings. MMODL / IJN: [id number] /
--- NOTE | 2020-09-25 19:12 | PN ---
PROGRESS NOTE DATE OF SERVICE: 09/25/2020 CHIEF COMPLAINT: Abdominal pain, nausea, vomiting, and diarrhea. HISTORY OF PRESENT ILLNESS: This lady is doing a little bit better. Pain is improving and she is tolerating a regular diet now. She has had no fever, chills, etc. PHYSICAL EXAMINATION: Chest is clear. Cardiac exam is normal. She is still a little bit tender in the left lower quadrant. Bowel sounds are present. IMPRESSION: 1. Crampy abdominal pain with nausea, vomiting and diarrhea. 2. Elevated lactic acid. 3. Insulin-dependent diabetes mellitus. 4. Hypertriglyceridemia. PLAN: Progress activity and diet and she can probably go home tomorrow. MMODL / IJN: [id number] /
[2020-09-25 19:37] LABS: ALT 36 U/L (4-34); AST 107 U/L (14-36); African American GFR (CKD) >90 (>60 ml/min/1.73 sqM); Albumin 3.3 g/dL (3.5-5.0); Albumin/Globulin Ratio 1.4; Alkaline Phosphatase 74 U/L (38-126); Anion Gap 6 mmol/L; Blood Urea Nitrogen 11 mg/dL (7-17); Calcium 7.8 mg/dL (8.4-10.2); Carbon Dioxide 27 mmol/L (22-30); Chloride 103 mmol/L (98-107); Globulin 2.4 g/dL; Glucose 219 mg/dL (74-99); Non-African American GFR(CKD) 85 (>60 ml/min/1.73 sqM); Potassium 4.4 mmol/L (3.5-5.1); Sodium 136 mmol/L (137-145); Total Bilirubin 0.4 mg/dL (0.2-1.3); Total Protein 5.7 g/dL (6.3-8.2)
[2020-09-25] MEDS: SODIUM CHLORIDE 0.9% 1,000 ML IV SCH ×2 (20:27→22:00)
[2020-09-25 20:45] LABS: Glucose,Whole Blood 216 mg/dL (75-99)
[2020-09-26] MEDS: HYDROmorphone 0.5 MG/0.5 ML SYRINGE IVP PRN ×2 (01:51→07:35)
[2020-09-26 06:05] LABS: Glucose,Whole Blood 166 mg/dL (75-99)
[2020-09-26 07:03] VITALS: BP 172/84; PULSE 50; RESP 16; TEMP 98
--- NOTE | 2020-09-26 23:36 | DS ---
DISCHARGE SUMMARY CHIEF COMPLAINT: Nausea, vomiting, diarrhea and abdominal pain. HISTORY OF PRESENT ILLNESS AND PHYSICAL EXAMINATION: Details of this lady's history and physical can be found in the initial workup. LABORATORY STUDIES: While she was in the hospital, she had laboratory studies, details of which can be found in the laboratory section of her chart. COURSE IN THE HOSPITAL: After admission, she was placed on bedrest, started on intravenous fluids, antiemetics. Crampy abdominal pain subsided as well as her nausea and vomiting and diarrhea, and she was doing well. It was felt that she could go home on September 26 and she will go home on her usual activity, diet, medications and she will be contacted in the next 24 hours regarding followup in the next few days. FINAL DIAGNOSES: 1. Viral gastroenteritis. 2. Abdominal pain. 3. Dehydration. 4. Insulin-dependent diabetes mellitus. 5. Hypertriglyceridemia. OPERATIONS: None. CONSULTATION: None. She is improved. JUAN / GOOD: [id number] /
== END 2020-09-26 11:43 | disposition home or self-care (01) ==
LOC: EC 13:51 → 6NMEDSUR 19:42 → 4SSUR 09-25 00:20 → 6NMEDSUR 09-25 00:38
PROVIDERS: ADMIT Family Medicine; ATTEND Family Medicine
DX: A08.4 Viral intestinal infection, unspecified (principal); K85.90 Acute pancreatitis without necrosis or infection, unspecified; E87.2 Acidosis; E86.0 Dehydration; E11.9 Type 2 diabetes mellitus without complications; E78.1 Pure hyperglyceridemia; Z20.822 Contact with and (suspected) exposure to COVID-19; E78.5 Hyperlipidemia, unspecified; K21.9 Gastro-esophageal reflux disease without esophagitis; E66.9 Obesity, unspecified; Z68.41 Body mass index [BMI] 40.0-44.9, adult; F17.200 Nicotine dependence, unspecified, uncomplicated; G89.29 Other chronic pain; M54.5 Low back pain; Z79.4 Long term (current) use of insulin; Z79.899 Other long term (current) drug therapy; Z83.6 Family history of other diseases of the respiratory system
CPT/HCPCS: 96376 ×2; 96361 ×3; 96375; 96374; 99285; 36415; 80061; 80053 ×2; 82150; 83605 ×2; 83690; 85025 ×2; 81001; 87635; 74177; G0378 ×3; J2270; J1170 ×3; Q9967

== ENCOUNTER 2020-11-13 14:24 | Inpatient (IN) | payer MEDICARE, OTHER ==
[2020-11-13 15:00] LABS: Glucose,Whole Blood 457 mg/dL (75-99)
[2020-11-13] MEDS ORDERED: SODIUM CHLORIDE 0.9% 1,000 ML IV STA (15:06)
--- NOTE | 2020-11-13 15:35 | ED ---
Weakness HPI - General Chief complaint: Weakness Stated complaint: weakness,body aches Time Seen by Provider: 11/13/20 15:03 Source: patient Mode of arrival: EMS Limitations: no limitations - History of Present Illness Initial comments: 50-year-old female with history of pancreatitis presented to emergency department with a chief complaint of generalized weakness. States the symptoms when I for approximately 1.5 weeks. Reports decreased appetite and some generalized diffuse abdominal pain. She reports some nausea but denies any vomiting. States she's also had one episode of diarrhea during this period. She denies any infectious urinary symptoms. Denies any vaginal symptoms. Denies any chest pain or shortness of breath. Denies any fevers or chills. Denies cough or any URI-like symptoms. - Related Data Home Medications Medication Instructions Recorded Confirmed Insulin Detemir (Levemir) [Levemir] 20 unit SQ DAILY 04/11/19 11/13/20 Atorvastatin [Lipitor] 80 mg PO HS 06/25/19 11/13/20 Ergocalciferol (Vitamin D2) 50,000 unit PO TU 06/25/19 11/13/20 [Drisdol (50,000 Iu)] INSULIN ASPART (NovoLOG) [NovoLOG 18 unit SQ TID-W/MEALS 06/25/19 11/13/20 (formulary)] Esomeprazole Magnesium [NexIUM] 20 mg PO DAILY 09/24/20 11/13/20 lisinopriL 40 mg PO DAILY 09/24/20 11/13/20 metFORMIN HCL [Glucophage] 500 mg PO DAILY 09/24/20 11/13/20 Previous Rx's Medication Instructions Recorded Fenofibrate [Lofibra] 160 mg PO DAILY #30 tab 03/23/19 Allergies Allergy/AdvReac Type Severity Reaction Status Date / Time No Known Allergies Allergy Verified 11/13/20 15:45 Review of Systems ROS Statement: Those systems with pertinent positive or pertinent negative responses have been documented in the HPI. ROS Other: All systems not noted in ROS Statement are negative. Past Medical History Past Medical History: Diabetes Mellitus, GERD/Reflux, Hyperlipidemia, Syncope Additional Past Medical History / Comment(s): Pancreatitis twice, NIDDM type II, UTI, chronic low back pain, bulging discs, dental abscesses in past. History of Any Multi-Drug Resistant Organisms: None Reported Past Surgical History: Tubal Ligation Additional Past Surgical History / Comment(s): Age 7 had VSD repair Past Anesthesia/Blood Transfusion Reactions: No Reported Reaction Past Psychological History: No Psychological Hx Reported Smoking Status: Former smoker Past Alcohol Use History: None Reported Past Drug Use History: None Reported - Past Family History Mother Family Medical History: No Reported History Additional Family Medical History / Comment(s): Mother was healthy. She is , pt cannot recall cause of . Father Family Medical History: Pneumonia Additional Family Medical History / Comment(s): Father at the age of 67yrs from pneumonia General Exam Limitations: no limitations General appearance: alert, in no apparent distress Head exam: Present: atraumatic, normocephalic, normal inspection Eye exam: Present: normal appearance, PERRL, EOMI Pupils: Present: normal accommodation ENT exam: Present: normal exam, normal oropharynx, mucous membranes moist, TM's normal bilaterally, normal external ear exam Neck exam: Present: normal inspection, full ROM. Absent: tenderness Respiratory exam: Present: normal lung sounds bilaterally. Absent: respiratory distress, wheezes, rales, rhonchi, stridor, chest wall tenderness Cardiovascular Exam: Present: regular rate, normal rhythm, normal heart sounds. Absent: systolic murmur, diastolic murmur GI/Abdominal exam: Present: soft. Absent: distended, tenderness, guarding, rebound, rigid Extremities exam: Present: normal inspection, full ROM, normal capillary refill. Absent: tenderness Back exam: Present: normal inspection, full ROM. Absent: tenderness Neurological exam: Present: alert, oriented X3 Psychiatric exam: Present: normal affect, normal mood Skin exam: Present: warm, dry, intact, normal color Course Vital Signs 11/13/20 11/13/20 14:26 15:29 Temperature 98.3 F Pulse Rate 73 77 Respiratory 16 20 Rate Blood Pressure 114/58 130/61 O2 Sat by Pulse 96 96 Oximetry EKG Findings - EKG Comments: EKG Findings:: Sinus rhythm neck some ventricular rate 70, MT 140, QRS 84, QTC 495. Medical Decision Making - Medical Decision Making 50-year-old [facility] with [facility]. On physical examination, patient is well-appearing. No significant abdominal tenderness. Patient does have dry mucous membranes. CBC unremarkable. CMP reveals elevated potassium of 5.8. Patient was given [place] gluconate, albuterol and regular insulin. She was found to be hyperglycemic with a blood glucose of 480. Patient will also found to have elevated lipase of 1300. Consistent with pancreatitis. She will be nothing by mouth and admitted for further medical management. I spoke to Dr. dwyer who requested a lipid panel. Case discussed with attending - Lab Data Result diagrams: 11/13/20 15:14 11/13/20 16:52 Lab Results 11/13/20 11/13/20 11/13/20 Range/Units 14:58 15:07 15:14 WBC 10.4 (3.8-10.6) k/uL RBC 4.50 (3.80-5.40) m/uL Hgb 12.7 (11.4-16.0) gm/dL Hct 39.5 (34.0-46.0) % MCV 87.8 (80.0-100.0) fL MCH 28.2 (25.0-35.0) pg MCHC 32.1 (31.0-37.0) g/dL RDW 17.6 H (11.5-15.5) % Plt Count 653 H (150-450) k/uL MPV 7.2 Neutrophils % 70 % Lymphocytes % 22 % Monocytes % 4 % Eosinophils % 2 % Basophils % 1 % Neutrophils # 7.2 (1.3-7.7) k/uL Lymphocytes # 2.3 (1.0-4.8) k/uL Monocytes # 0.4 (0-1.0) k/uL Eosinophils # 0.2 (0-0.7) k/uL Basophils # 0.1 (0-0.2) k/uL Anisocytosis Slight PT (9.0-12.0) sec INR (<1.2) APTT (22.0-30.0) sec Sodium (137-145) mmol/L Potassium (3.5-5.1) mmol/L Chloride (98-107) mmol/L Carbon Dioxide (22-30) mmol/L Anion Gap mmol/L BUN (7-17) mg/dL Creatinine (0.52-1.04) mg/dL Est GFR (CKD-EPI)AfAm (>60 ml/min/1.73 sqM) Est GFR (CKD-EPI)NonAf (>60 ml/min/1.73 sqM) Glucose (74-99) mg/dL POC Glucose (mg/dL) 457 H (75-99) mg/dL POC Glu [place] Plasma Lactic Acid [place]on (0.7-2.0) mmol/L Calcium (8.4-10.2) mg/dL Total Bilirubin (0.2-1.3) mg/dL AST (14-36) U/L ALT (4-34) U/L Alkaline Phosphatase (38-126) U/L Troponin I (0.000-0.034) ng/mL Total Protein (6.3-8.2) g/dL Albumin (3.5-5.0) g/dL Amylase (30-110) U/L Lipase (23-300) U/L Urine Color Urine Appearance (Clear) Urine pH (5.0-8.0) Ur Specific [place] (1.001-1.035) Urine Protein (Negative) Urine Glucose (UA) (Negative) Urine Ketones (Negative) Urine Blood (Negative) Urine Nitrite (Negative) Urine Bilirubin (Negative) Urine Urobilinogen (<2.0) mg/dL Ur Leukocyte Esterase (Negative) Acetone, Qual Negative (Negative) Coronavirus (PCR) (Not Detectd) 11/13/20 11/13/20 11/13/20 Range/Units 15:14 15:14 15:14 WBC (3.8-10.6) k/uL RBC (3.80-5.40) m/uL Hgb (11.4-16.0) gm/dL Hct (34.0-46.0) % MCV (80.0-100.0) fL MCH (25.0-35.0) pg MCHC (31.0-37.0) g/dL RDW (11.5-15.5) % Plt Count (150-450) k/uL MPV Neutrophils % % Lymphocytes % % Monocytes % % Eosinophils % % Basophils % % Neutrophils # (1.3-7.7) k/uL Lymphocytes # (1.0-4.8) k/uL Monocytes # (0-1.0) k/uL Eosinophils # (0-0.7) k/uL Basophils # (0-0.2) k/uL Anisocytosis PT 10.4 (9.0-12.0) sec INR 1.0 (<1.2) APTT 22.6 (22.0-30.0) sec Sodium 131 L (137-145) mmol/L Potassium 6.4 H* (3.5-5.1) mmol/L Chloride 98 (98-107) mmol/L Carbon Dioxide 22 (22-30) mmol/L Anion Gap 11 mmol/L BUN 46 H (7-17) mg/dL Creatinine 1.16 H (0.52-1.04) mg/dL Est GFR (CKD-EPI)AfAm 65 (>60 ml/min/1.73 sqM) Est GFR (CKD-EPI)NonAf 56 (>60 ml/min/1.73 sqM) Glucose 421 H (74-99) mg/dL POC Glucose (mg/dL) (75-99) mg/dL POC Glu [place] ID Plasma Lactic Acid [place] (0.7-2.0) mmol/L Calcium 9.9 (8.4-10.2) mg/dL Total Bilirubin 0.2 (0.2-1.3) mg/dL AST 40 H (14-36) U/L ALT 41 H (4-34) U/L Alkaline Phosphatase 77 (38-126) U/L Troponin I (0.000-0.034) ng/mL Total Protein 7.0 (6.3-8.2) g/dL Albumin 4.2 (3.5-5.0) g/dL Amylase 63 (30-110) U/L Lipase 1309 H (23-300) U/L Urine Color Light Yellow Urine Appearance Clear (Clear) Urine pH 6.0 (5.0-8.0) Ur Specific [place] 1.015 (1.001-1.035) Urine Protein Negative (Negative) Urine Glucose (UA) 4+ H (Negative) Urine Ketones Negative (Negative) Urine Blood Negative (Negative) Urine Nitrite Negative (Negative) Urine Bilirubin Negative (Negative) Urine Urobilinogen <2.0 (<2.0) mg/dL Ur Leukocyte Esterase Negative (Negative) Acetone, Qual (Negative) Coronavirus (PCR) (Not Detectd) 11/13/20 11/13/20 11/13/20 Range/Units 15:14 15:14 15:34 WBC (3.8-10.6) k/uL RBC (3.80-5.40) m/uL Hgb (11.4-16.0) gm/dL Hct (34.0-46.0) % MCV (80.0-100.0) fL MCH (25.0-35.0) pg MCHC (31.0-37.0) g/dL RDW (11.5-15.5) % Plt Count (150-450) k/uL MPV Neutrophils % % Lymphocytes % % Monocytes % % Eosinophils % % Basophils % % Neutrophils # (1.3-7.7) k/uL Lymphocytes # (1.0-4.8) k/uL Monocytes # (0-1.0) k/uL Eosinophils # (0-0.7) k/uL Basophils # (0-0.2) k/uL Anisocytosis PT (9.0-12.0) sec INR (<1.2) APTT (22.0-30.0) sec Sodium (137-145) mmol/L Potassium (3.5-5.1) mmol/L Chloride (98-107) mmol/L Carbon Dioxide (22-30) mmol/L Anion Gap mmol/L BUN (7-17) mg/dL Creatinine (0.52-1.04) mg/dL Est GFR (CKD-EPI)AfAm (>60 ml/min/1.73 sqM) Est GFR (CKD-EPI)NonAf (>60 ml/min/1.73 sqM) Glucose (74-99) mg/dL POC Glucose (mg/dL) (75-99) mg/dL POC Glu [place] ID Plasma Lactic Acid [place] 1.8 (0.7-2.0) mmol/L Calcium (8.4-10.2) mg/dL Total Bilirubin (0.2-1.3) mg/dL AST (14-36) U/L ALT (4-34) U/L Alkaline Phosphatase (38-126) U/L Troponin I <0.012 (0.000-0.034) ng/mL Total Protein (6.3-8.2) g/dL Albumin (3.5-5.0) g/dL Amylase (30-110) U/L Lipase (23-300) U/L Urine Color Urine Appearance (Clear) Urine pH (5.0-8.0) Ur Specific [place] (1.001-1.035) Urine Protein (Negative) Urine Glucose (UA) (Negative) Urine Ketones (Negative) Urine Blood (Negative) Urine Nitrite (Negative) Urine Bilirubin (Negative) Urine Urobilinogen (<2.0) mg/dL Ur Leukocyte Esterase (Negative) Acetone, Qual (Negative) Coronavirus (PCR) Not Detected (Not Detectd) 11/13/20 Range/Units 16:52 WBC (3.8-10.6) k/uL RBC (3.80-5.40) m/uL Hgb (11.4-16.0) gm/dL Hct (34.0-46.0) % MCV (80.0-100.0) fL MCH (25.0-35.0) pg MCHC (31.0-37.0) g/dL RDW (11.5-15.5) % Plt Count (150-450) k/uL MPV Neutrophils % % Lymphocytes % % Monocytes % % Eosinophils % % Basophils % % Neutrophils # (1.3-7.7) k/uL Lymphocytes # (1.0-4.8) k/uL Monocytes # (0-1.0) k/uL Eosinophils # (0-0.7) k/uL Basophils # (0-0.2) k/uL Anisocytosis PT (9.0-12.0) sec INR (<1.2) APTT (22.0-30.0) sec Sodium (137-145) mmol/L Potassium 5.8 H (3.5-5.1) mmol/L Chloride (98-107) mmol/L Carbon Dioxide (22-30) mmol/L Anion Gap mmol/L BUN (7-17) mg/dL Creatinine (0.52-1.04) mg/dL Est GFR (CKD-EPI)AfAm (>60 ml/min/1.73 sqM) Est GFR (CKD-EPI)NonAf (>60 ml/min/1.73 sqM) Glucose (74-99) mg/dL POC Glucose (mg/dL) (75-99) mg/dL POC Glu [place] ID Plasma Lactic Acid [place] (0.7-2.0) mmol/L Calcium (8.4-10.2) mg/dL Total Bilirubin (0.2-1.3) mg/dL AST (14-36) U/L ALT (4-34) U/L Alkaline Phosphatase (38-126) U/L Troponin I (0.000-0.034) ng/mL Total Protein (6.3-8.2) g/dL Albumin (3.5-5.0) g/dL Amylase (30-110) U/L Lipase (23-300) U/L Urine Color Urine Appearance (Clear) Urine pH (5.0-8.0) Ur Specific [place] (1.001-1.035) Urine Protein (Negative) Urine Glucose (UA) (Negative) Urine Ketones (Negative) Urine Blood (Negative) Urine Nitrite (Negative) Urine Bilirubin (Negative) Urine Urobilinogen (<2.0) mg/dL Ur Leukocyte Esterase (Negative) Acetone, Qual (Negative) Coronavirus (PCR) (Not Detectd) Disposition Clinical Impression: Acute pancreatitis, Hyperglycemia, Dehydration, Hyperkalemia Disposition: ADMITTED IP TO THIS HOSP Condition: Fair Is patient prescribed a controlled substance at d/c from ED?: No Referrals: Guillermo Cerda MD [Primary Care Provider] - 1-2 days Time of Disposition: 17:32
[2020-11-13 15:44] LABS: Anisocytosis Slight; Basophils # (A) 0.1 k/uL (0-0.2); Basophils % (A) 1 %; Eosinophils # (A) 0.2 k/uL (0-0.7); Eosinophils % (A) 2 %; HCT 39.5 % (34.0-46.0); HGB 12.7 gm/dL (11.4-16.0); Lymphocytes # (A) 2.3 k/uL (1.0-4.8); Lymphocytes % (A) 22 %; MCH 28.2 pg (25.0-35.0); MCHC 32.1 g/dL (31.0-37.0); MCV 87.8 fL (80.0-100.0); Mean Platelet Volume 7.2; Monocytes # (A) 0.4 k/uL (0-1.0); Monocytes % (A) 4 %; Neutrophils # (A) 7.2 k/uL (1.3-7.7); Neutrophils % (A) 70 %; Platelet Count 653 k/uL (150-450); RDW 17.6 % (11.5-15.5); WBC 10.4 k/uL (3.8-10.6)
[2020-11-13 15:58] LABS: Albumin 4.2 g/dL (3.5-5.0); Appearance,Urine Clear (Clear); Bilirubin,Urine Negative (Negative); Blood,Urine Negative (Negative); Calcium 9.9 mg/dL (8.4-10.2); Color,Urine Light Yellow; Glucose,Urine (UA) 4+ (Negative); Ketones,Urine Negative (Negative); Leukocyte Esterase,Urine Negative (Negative); Nitrite,Urine Negative (Negative); Protein,Urine Negative (Negative); Specific Gravity,Urine 1.015 (1.001-1.035); Total Bilirubin 0.2 mg/dL (0.2-1.3); Urobilinogen,Urine <2.0 mg/dL (<2.0)
[2020-11-13 16:18] LABS: Potassium 6.4 mmol/L (3.5-5.1)
[2020-11-13] MEDS ORDERED: INSULIN REGULAR 100 UNIT/ML VIAL (IV) IV ONE (16:32)
[2020-11-13 16:33] LABS: Partial Thromboplastin Time 22.6 sec (22.0-30.0); Prothrombin Time 10.4 sec (9.0-12.0)
[2020-11-13] MEDS ORDERED: ALBUTEROL NEBULIZED 2.5 MG/3 ML INHALATION STA ×2 (16:34→17:21)
[2020-11-13] MEDS: CALCIUM GLUCONATE 1 GM in SODIUM CHLORIDE 0.9% 100 ML IVPB ONE ×2 (16:52→18:12)
[2020-11-13] MEDS ORDERED: CALCIUM GLUCONATE 1 GM in SODIUM CHLORIDE 0.9% 100 ML IVPB ONE (17:20)
[2020-11-13] MEDS ORDERED: LORazepam 2 MG/ML INJ IV PRN (17:28)
[2020-11-13] MEDS ORDERED: NALOXONE 0.4 MG/ML 1 ML VIAL IV PRN (17:28)
[2020-11-13] MEDS ORDERED: ONDANSETRON 4 MG/2 ML VIAL IVP PRN (17:28)
[2020-11-13] MEDS ORDERED: HYDROmorphone 1 MG/ML 1 ML SYRINGE IVP PRN (17:28)
[2020-11-13 18:05] LABS: Glucose,Whole Blood 352 mg/dL (75-99)
[2020-11-13] MEDS: SODIUM CHLORIDE 0.9% 1,000 ML IV SCH (18:13)
[2020-11-13] MEDS: HYDROmorphone 0.5 MG/0.5 ML SYRINGE IVP PRN (19:26)
[2020-11-13 20:16] LABS: Glucose,Whole Blood 311 mg/dL (75-99)
[2020-11-13] MEDS: ATORVASTATIN 80 MG TAB PO SCH (21:21)
[2020-11-13] MEDS: INSULIN ASPART (NovoLOG) 100 UNIT/ML VIAL SQ SCH (21:21)
[2020-11-13 22:49] LABS: Chol/HDL Ratio 6.21; LDL Cholesterol,Calculated 49.4 mg/dL (0.0-131.0); VLDL Calculation 75.6 mg/dL (5.00-40.00)
[2020-11-14] MEDS: HYDROmorphone 0.5 MG/0.5 ML SYRINGE IVP PRN ×4 (03:45→19:27)
[2020-11-14 06:55] LABS: Glucose,Whole Blood 204 mg/dL (75-99)
[2020-11-14] MEDS: INSULIN ASPART (NovoLOG) 100 UNIT/ML VIAL SQ SCH ×7 (08:00→21:10)
[2020-11-14] MEDS: SODIUM CHLORIDE 0.9% 1,000 ML IV SCH (08:01)
[2020-11-14] MEDS: PANTOPRAZOLE 40 MG/10 ML VIAL IV SCH (08:02)
[2020-11-14] MEDS: INSULIN DETEMIR (LEVEMIR) 100 UNIT/ML SYR SQ SCH (08:02)
[2020-11-14] MEDS: FENOFIBRATE 160 MG TAB PO SCH (08:03)
[2020-11-14] MEDS: lisinopriL 20 MG TAB PO SCH (08:05)
[2020-11-14] MEDS ORDERED: NON FORMULARY DRUG (Esomeprazole Magnesium [Nexium] 20 MG Capsule.Dr) PO SCH (09:00)
[2020-11-14 11:26] LABS: Glucose,Whole Blood 183 mg/dL (75-99)
[2020-11-14 12:22] LABS: Chol/HDL Ratio 6.67
[2020-11-14 12:22] LABS: African American GFR (CKD) 68.8 (60.0-200.0); Anion Gap 9.1 mmol/L (4.00-12.00); BUN/Creat Ratio 32.73 Ratio (12.00-20.00); Calcium 8.7 mg/dL (8.7-10.3); Carbon Dioxide 22.9 mmol/L (21.6-31.8); Non-African American GFR(CKD) 59.3 (60.0-200.0); Potassium 5.3 mmol/L (3.5-5.5)
[2020-11-14 14:59] LABS: Hemoglobin A1C 10.8 % (4.0-6.0)
[2020-11-14 16:54] LABS: Glucose,Whole Blood 129 mg/dL (75-99)
[2020-11-14] MEDS: ATORVASTATIN 80 MG TAB PO SCH (19:27)
[2020-11-14 20:54] LABS: Glucose,Whole Blood 151 mg/dL (75-99)
[2020-11-15] MEDS: HYDROmorphone 0.5 MG/0.5 ML SYRINGE IVP PRN ×5 (00:42→18:04)
[2020-11-15 07:14] LABS: Glucose,Whole Blood 147 mg/dL (75-99)
[2020-11-15] MEDS: FENOFIBRATE 160 MG TAB PO SCH (07:49)
[2020-11-15] MEDS: PANTOPRAZOLE 40 MG/10 ML VIAL IV SCH (07:49)
[2020-11-15] MEDS: INSULIN DETEMIR (LEVEMIR) 100 UNIT/ML SYR SQ SCH (07:49)
[2020-11-15] MEDS: lisinopriL 20 MG TAB PO SCH (07:49)
[2020-11-15] MEDS: SODIUM CHLORIDE 0.9% 1,000 ML IV SCH ×2 (07:50→10:54)
[2020-11-15] MEDS: INSULIN ASPART (NovoLOG) 100 UNIT/ML VIAL SQ SCH ×8 (07:50→21:11)
[2020-11-15 10:53] LABS: Glucose,Whole Blood 156 mg/dL (75-99)
[2020-11-15 11:41] LABS: ALT 40 U/L (4-34); AST 72 U/L (14-36); African American GFR (CKD) 76 (>60 ml/min/1.73 sqM); Albumin 3.5 g/dL (3.5-5.0); Albumin/Globulin Ratio 1.3; Alkaline Phosphatase 70 U/L (38-126); Anion Gap 7 mmol/L; Blood Urea Nitrogen 24 mg/dL (7-17); Calcium 9.3 mg/dL (8.4-10.2); Carbon Dioxide 24 mmol/L (22-30); Chloride 108 mmol/L (98-107); Globulin 2.8 g/dL; Glucose 166 mg/dL (74-99); Lipase 484 U/L (23-300); Non-African American GFR(CKD) 66 (>60 ml/min/1.73 sqM); Sodium 139 mmol/L (137-145); Total Bilirubin 0.3 mg/dL (0.2-1.3); Total Protein 6.3 g/dL (6.3-8.2)
[2020-11-15 14:12] VITALS: BMI 41.8
[2020-11-15 15:56] LABS: Basophils # (A) 0.04 X 10*3/uL (0.00-0.10); Basophils % (A) 0.5 %; Eosinophils # (A) 0.16 X 10*3/uL (0.04-0.35); Eosinophils % (A) 1.9 %; HCT 37.4 % (37.2-46.3); HGB 11.3 g/dL (12.0-15.0); Lymphocytes # (A) 2.13 X 10*3/uL (0.90-5.00); Lymphocytes % (A) 25.8 %; MCH 27.2 pg (27.0-32.0); MCHC 30.2 g/dL (32.0-37.0); MCV 90.1 fL (80.0-97.0); Mean Platelet Volume 9.5 fL (9.5-12.2); Monocytes # (A) 0.47 X 10*3/uL (0.20-1.00); Monocytes % (A) 5.7 %; Neutrophils # (A) 5.42 X 10*3/uL (1.80-7.70); Neutrophils % (A) 65.7 %; Platelet Count 510 X 10*3/uL (140-440); RBC 4.15 X 10*6/uL (4.10-5.20); RDW 18.1 % (11.5-14.5); WBC 8.25 X 10*3/uL (4.50-10.00)
[2020-11-15 16:21] LABS: Glucose,Whole Blood 114 mg/dL (75-99)
[2020-11-15] MEDS: ACETAMINOPHEN TAB 325 MG TAB PO PRN (20:11)
[2020-11-15] MEDS: ATORVASTATIN 80 MG TAB PO SCH (20:11)
[2020-11-15 20:37] LABS: Glucose,Whole Blood 258 mg/dL (75-99)
[2020-11-15] MEDS: MORPHINE SULFATE 4 MG/ML SYRINGE IV PRN (22:42)
--- NOTE | 2020-11-15 22:51 | HP ---
HISTORY AND PHYSICAL CHIEF COMPLAINT: Abdominal pain. HISTORY OF PRESENT ILLNESS: This is another admission for this 50-year-old white female, who has had multiple episodes of recurrent pancreatitis. This has generally been related to hypertriglyceridemia. She started to develop pain over the last several days ago. It grew steadily worse. She vomited once. In the emergency room, her lipase was elevated. REVIEW OF SYSTEMS: She denies any other problems including neurologic problems, chest pain, shortness of breath, hematemesis, jaundice, etc. Past medical history, family history, personal and social histories are all essentially unremarkable otherwise and noncontributory. She is diabetic. PHYSICAL EXAMINATION: Blood pressure is 136/74 with a pulse of 87, respirations of 33 and she is afebrile. In general, she appeared to be overweight and somewhat uncomfortable. Skin was dry. Lymph nodes not enlarged. Head, ears, eyes, nose, mouth and throat were normal. Neck veins are not distended. Thyroid is not enlarged. Chest is clear. Cardiac exam is normal. Abdomen is protuberant. She is tender over the upper abdomen. There are no masses. Bowel sounds are present. Extremities are normal and neurologically she is intact. IMPRESSION: 1. Pancreatitis. 2. Hypertriglyceridemia. 3. Diabetes mellitus. PLAN: 1. Bedrest. 2. IV fluids. 3. Analgesics. 4. Regular diet. MMODL / IJN: [id number] /
--- NOTE | 2020-11-15 22:54 | PN ---
PROGRESS NOTE DATE OF SERVICE: 11/14/2020 CHIEF COMPLAINT: Pancreatitis. HISTORY OF PRESENT ILLNESS: This lady is still having fair amount of pain but is subsiding slowly. She has had no vomiting. PHYSICAL EXAMINATION: She is trommel tender over the epigastrium. Vital signs: Normal. Chest is clear. IMPRESSION: 1. Pancreatitis. 2. Hypertriglyceridemia. 3. Diabetes. PLAN: Progress diet and activity and continue IV fluids. MMODL / IJN: [id number] /
--- NOTE | 2020-11-15 23:13 | PN ---
PROGRESS NOTE CHIEF COMPLAINT: Pancreatitis. HISTORY OF PRESENT ILLNESS: This lady's pain is improving. We will advance her diet. She also has developed a lesion on the medial aspect of the right thigh. PHYSICAL EXAMINATION: Chest is clear. Cardiac exam is normal. She is meal grinder tender in the upper abdomen. There is an erythematous, irregularly shaped dry dermatitis on the inside of the right thigh measuring about an inch in diameter. IMPRESSION: 1. Pancreatitis. 2. Skin lesion on the inside of the medial thigh. PLAN: Continue with IV fluids and increase activity. Hydrocortisone cream to the thigh area. MMODL / IJN: [id number] /
[2020-11-16] MEDS: MORPHINE SULFATE 4 MG/ML SYRINGE IV PRN (03:11)
[2020-11-16] MEDS: HYDROmorphone 0.5 MG/0.5 ML SYRINGE IVP PRN (06:16)
[2020-11-16 06:47] LABS: Glucose,Whole Blood 180 mg/dL (75-99)
[2020-11-16] MEDS: lisinopriL 20 MG TAB PO SCH (08:24)
[2020-11-16] MEDS: FENOFIBRATE 160 MG TAB PO SCH (08:24)
[2020-11-16] MEDS: PANTOPRAZOLE 40 MG/10 ML VIAL IV SCH (08:24)
[2020-11-16] MEDS: INSULIN DETEMIR (LEVEMIR) 100 UNIT/ML SYR SQ SCH (08:24)
[2020-11-16] MEDS: SODIUM CHLORIDE 0.9% 1,000 ML IV SCH ×2 (08:25→12:08)
[2020-11-16] MEDS: INSULIN ASPART (NovoLOG) 100 UNIT/ML VIAL SQ SCH ×7 (08:25→20:34)
[2020-11-16 11:39] LABS: Glucose,Whole Blood 322 mg/dL (75-99)
[2020-11-16] MEDS: ACETAMINOPHEN TAB 325 MG TAB PO PRN ×2 (14:53→20:33)
[2020-11-16 16:17] LABS: Glucose,Whole Blood 149 mg/dL (75-99)
[2020-11-16] MEDS: KETOROLAC 15 MG/ML 1 ML VIAL IVP SCH ×2 (18:58→23:01)
[2020-11-16 20:25] LABS: Glucose,Whole Blood 223 mg/dL (75-99)
[2020-11-16] MEDS: ATORVASTATIN 80 MG TAB PO SCH (20:33)
[2020-11-17] MEDS ORDERED: traZODone HCL 50 MG TAB PO SCH (00:15)
--- NOTE | 2020-11-17 01:30 | PN ---
PROGRESS NOTE DATE OF SERVICE: 11/16/2020 CHIEF COMPLAINT: Pancreatitis. HISTORY OF PRESENT ILLNESS: This lady is definitely feeling better. Her pain is subsiding. She is eating. She has had no fever or chills. PHYSICAL EXAMINATION: She is still slightly tender over the epigastrium. Chest is clear. Cardiac exam is normal. The blood sugars are elevated. IMPRESSION: 1. Pancreatitis. 2. Uncontrolled diabetes. PLAN: Repeat lipase which is slowly coming down and increase her insulin management. She will be able to go home once her lipase is lower and blood sugars are under control. MMODL / IJN: [id number] /
[2020-11-17] MEDS: ACETAMINOPHEN TAB 325 MG TAB PO PRN (02:51)
[2020-11-17] MEDS: KETOROLAC 15 MG/ML 1 ML VIAL IVP SCH (05:37)
[2020-11-17] MEDS ORDERED: INSULIN DETEMIR (LEVEMIR) 100 UNIT/ML SYR SQ SCH (07:00)
[2020-11-17 07:25] LABS: Glucose,Whole Blood 227 mg/dL (75-99)
[2020-11-17] MEDS: INSULIN ASPART (NovoLOG) 100 UNIT/ML VIAL SQ SCH ×2 (07:46→07:47)
[2020-11-17] MEDS: lisinopriL 20 MG TAB PO SCH (07:46)
[2020-11-17] MEDS: FENOFIBRATE 160 MG TAB PO SCH (07:46)
[2020-11-17] MEDS: HYDROmorphone 0.5 MG/0.5 ML SYRINGE IVP PRN (07:49)
[2020-11-17] MEDS: SODIUM CHLORIDE 0.9% 1,000 ML IV SCH (07:51)
[2020-11-17 07:55] VITALS: BP 133/70; PULSE 57; RESP 16; TEMP 98.3
[2020-11-17] MEDS ORDERED: PANTOPRAZOLE 40 MG TABLET PO SCH (09:00)
[2020-11-17 11:38] LABS: Glucose,Whole Blood 275 mg/dL (75-99)
--- NOTE | 2020-11-17 23:02 | DS ---
DISCHARGE SUMMARY Admitting and CHIEF COMPLAINT: Pancreatitis. HISTORY OF PRESENT ILLNESS AND PHYSICAL EXAMINATION: Details of this lady's history and physical can be found in the initial workup. LABORATORY STUDIES: While she was in the hospital, she had laboratory studies, details of which can be found in the laboratory section of her chart and reveal that her lipase is coming down. COURSE IN THE HOSPITAL: After admission, she was placed on bedrest with IV fluids and analgesics. Lipase slowly came down. Her blood sugars were also quite high, but these were dealt with and under control. It was felt that she could go home on the and she will follow up in several days. FINAL DIAGNOSES: 1. Recurrent chronic relapsing pancreatitis. 2. Hypertriglyceridemia. 3. Insulin-dependent diabetes mellitus. OPERATIONS: None. CONSULTATIONS: None. She is improved. JUAN / GOOD: [id number] /
== END 2020-11-17 11:46 | disposition home or self-care (01) | DRG 440 ==
LOC: EC 14:24 → 4SSUR 17:28
PROVIDERS: ADMIT Family Medicine; ATTEND Family Medicine
DX: K85.90 Acute pancreatitis without necrosis or infection, unspecified (principal); E86.0 Dehydration; E87.5 Hyperkalemia; E11.65 Type 2 diabetes mellitus with hyperglycemia; E78.1 Pure hyperglyceridemia; G89.29 Other chronic pain; M54.5 Low back pain; L98.9 Disorder of the skin and subcutaneous tissue, unspecified; L30.9 Dermatitis, unspecified; E78.5 Hyperlipidemia, unspecified; K86.1 Other chronic pancreatitis; Z79.4 Long term (current) use of insulin; Z20.822 Contact with and (suspected) exposure to COVID-19; Z87.891 Personal history of nicotine dependence; Z86.79 Personal history of other diseases of the circulatory system; Z98.51 Tubal ligation status
CPT/HCPCS: 36415; 80048; 80053; 80061; 81003; 82009; 82150; 83036; 83605; 83690; 84132; 84484; 85025; 85610; 85730; 87635; 93005; 94644; 96361; 96365; 96375; 99285

== ENCOUNTER 2021-01-10 16:25 | Inpatient (IN) | payer MEDICARE ==
[2021-01-10] MEDS ORDERED: PIPERACILLIN-TAZOBACTAM 3.375 GM in SODIUM CHLORIDE 0.9% 100 ML IVPB STA (18:45)
[2021-01-10] MEDS ORDERED: VANCOMYCIN IV PER PHARMACY 1 EACH MISC MISCELLANE PRN (18:46)
[2021-01-10] MEDS ORDERED: VANCOMYCIN 1,500 MG in SODIUM CHLORIDE 0.9% 250 ML IVPB ONE (19:30)
[2021-01-10 20:34] LABS: Anisocytosis Slight; Basophils # (A) 0.1 k/uL (0-0.2); Basophils % (A) 0 %; Eosinophils # (A) 0.2 k/uL (0-0.7); Eosinophils % (A) 2 %; HCT 38.6 % (34.0-46.0); HGB 12.1 gm/dL (11.4-16.0); Lymphocytes # (A) 2.4 k/uL (1.0-4.8); Lymphocytes % (A) 16 %; MCH 27.8 pg (25.0-35.0); MCHC 31.2 g/dL (31.0-37.0); MCV 88.9 fL (80.0-100.0); Mean Platelet Volume 7.4; Monocytes # (A) 0.5 k/uL (0-1.0); Monocytes % (A) 3 %; Neutrophils # (A) 11.9 k/uL (1.3-7.7); Neutrophils % (A) 78 %; Platelet Count 631 k/uL (150-450); RBC 4.34 m/uL (3.80-5.40); RDW 16.3 % (11.5-15.5); WBC 15.3 k/uL (3.8-10.6)
--- NOTE | 2021-01-10 20:35 | ED ---
General Adult HPI - General Chief complaint: Skin/Abscess/Foreign Body Stated complaint: abdominal infection Time Seen by Provider: 01/10/21 18:07 Source: patient, EMS, RN notes reviewed Mode of arrival: EMS Limitations: no limitations - History of Present Illness Initial comments: This a 50-year-old female presents emergency Department with chief complaint of skin infection. Patient states that she was sent over from her PCPs office. Patient is known diabetic. Patient states that she has redness, skin deterioration on the right. Patient states that she has a rash to her leg no fevers or chills she's been having increasing pain. She denies any history of skin infections post told this could be MRSA. - Related Data Home Medications Medication Instructions Recorded Confirmed Insulin Detemir (Levemir) [Levemir] 20 unit SQ DAILY 04/11/19 11/13/20 Atorvastatin [Lipitor] 80 mg PO HS 06/25/19 11/13/20 Ergocalciferol (Vitamin D2) 50,000 unit PO TU 06/25/19 11/13/20 [Drisdol (50,000 Iu)] INSULIN ASPART (NovoLOG) [NovoLOG 18 unit SQ TID-W/MEALS 06/25/19 11/13/20 (formulary)] Esomeprazole Magnesium [NexIUM] 20 mg PO DAILY 09/24/20 11/13/20 lisinopriL 40 mg PO DAILY 09/24/20 11/13/20 metFORMIN HCL [Glucophage] 500 mg PO DAILY 09/24/20 11/13/20 Previous Rx's Medication Instructions Recorded Fenofibrate [Lofibra] 160 mg PO DAILY #30 tab 03/23/19 Pantoprazole [Protonix] 40 mg PO DAILY #30 tablet. 11/17/20 Allergies Allergy/AdvReac Type Severity Reaction Status Date / Time No Known Allergies Allergy Verified 01/10/21 16:43 Review of Systems ROS Statement: Those systems with pertinent positive or pertinent negative responses have been documented in the HPI. ROS Other: All systems not noted in ROS Statement are negative. Past Medical History Past Medical History: Diabetes Mellitus, GERD/Reflux, Hyperlipidemia, Syncope Additional Past Medical History / Comment(s): Pancreatitis twice, NIDDM type II, UTI, chronic low back pain, bulging discs, dental abscesses in past. History of Any Multi-Drug Resistant Organisms: None Reported Past Surgical History: Tubal Ligation Additional Past Surgical History / Comment(s): Age 7 had VSD repair Past Anesthesia/Blood Transfusion Reactions: No Reported Reaction Past Psychological History: No Psychological Hx Reported Smoking Status: Current every day smoker Past Alcohol Use History: None Reported Past Drug Use History: None Reported - Past Family History Mother Family Medical History: No Reported History Additional Family Medical History / Comment(s): Mother was healthy. She is , pt cannot recall cause of . Father Family Medical History: Pneumonia Additional Family Medical History / Comment(s): Father at the age of 67yrs from pneumonia General Exam Limitations: no limitations General appearance: alert, in no apparent distress Head exam: Present: atraumatic, normocephalic, normal inspection Neck exam: Present: normal inspection. Absent: tenderness, meningismus, lymphadenopathy Respiratory exam: Present: normal lung sounds bilaterally. Absent: respiratory distress, wheezes, rales, rhonchi, stridor Cardiovascular Exam: Present: regular rate, normal rhythm, normal heart sounds. Absent: systolic murmur, diastolic murmur, rubs, gallop, clicks GI/Abdominal exam: Present: soft, normal bowel sounds, other (Right lower abdomen, pannus fold there is erythematous rash with skin breakdown, ulcerations). Absent: distended, tenderness, guarding, rebound, rigid Course Vital Signs 01/10/21 16:37 Temperature 99.3 F Pulse Rate 78 Respiratory 20 Rate Blood Pressure 102/62 Medical Decision Making - Medical Decision Making Patient will be admitted for abdominal wall cellulitis with ulceration patient was started on broad-spectrum antibiotics patient on a have hypokalemia patient's was given fluids, Lasix, sodium bicarbonate, insulin with repeat labs. - Lab Data Result diagrams: 01/10/21 20:23 01/10/21 20:23 Lab Results 01/10/21 01/10/21 01/10/21 Range/Units 20:23 20:23 20:23 WBC 15.3 H (3.8-10.6) k/uL RBC 4.34 (3.80-5.40) m/uL Hgb 12.1 (11.4-16.0) gm/dL Hct 38.6 (34.0-46.0) % MCV 88.9 (80.0-100.0) fL MCH 27.8 (25.0-35.0) pg MCHC 31.2 (31.0-37.0) g/dL RDW 16.3 H (11.5-15.5) % Plt Count 631 H (150-450) k/uL MPV 7.4 Neutrophils % 78 % Lymphocytes % 16 % Monocytes % 3 % Eosinophils % 2 % Basophils % 0 % Neutrophils # 11.9 H (1.3-7.7) k/uL Lymphocytes # 2.4 (1.0-4.8) k/uL Monocytes # 0.5 (0-1.0) k/uL Eosinophils # 0.2 (0-0.7) k/uL Basophils # 0.1 (0-0.2) k/uL Anisocytosis Slight PT 10.1 (9.0-12.0) sec INR 0.9 (<1.2) APTT 22.1 (22.0-30.0) sec Sodium (137-145) mmol/L Potassium (3.5-5.1) mmol/L Chloride (98-107) mmol/L Carbon Dioxide (22-30) mmol/L Anion Gap mmol/L BUN (7-17) mg/dL Creatinine (0.52-1.04) mg/dL Est GFR (CKD-EPI)AfAm (>60 ml/min/1.73 sqM) Est GFR (CKD-EPI)NonAf (>60 ml/min/1.73 sqM) Glucose (74-99) mg/dL Plasma Lactic Acid Travon (0.7-2.0) mmol/L Calcium (8.4-10.2) mg/dL Total Bilirubin (0.2-1.3) mg/dL AST (14-36) U/L ALT (4-34) U/L Alkaline Phosphatase (38-126) U/L C-Reactive Protein (<1.0) mg/dL Total Protein (6.3-8.2) g/dL Albumin (3.5-5.0) g/dL Urine Color Yellow Urine Appearance Turbid H (Clear) Urine pH 5.0 (5.0-8.0) Ur Specific [place] 1.022 (1.001-1.035) Urine Protein 1+ H (Negative) Urine Glucose (UA) 2+ H (Negative) Urine Ketones Negative (Negative) Urine Blood Large H (Negative) Urine Nitrite Negative (Negative) Urine Bilirubin Negative (Negative) Urine Urobilinogen 2.0 (<2.0) mg/dL Ur Leukocyte Esterase Large H (Negative) Urine RBC 11 H (0-5) /hpf Urine WBC 12 H (0-5) /hpf Ur Squamous Epith Cells 27 H (0-4) /hpf Urine Bacteria Rare H (None) /hpf Hyaline Casts 28 H (0-2) /lpf Urine Mucus Rare H (None) /hpf 01/10/21 01/10/21 Range/Units 20:23 20:23 WBC (3.8-10.6) k/uL RBC (3.80-5.40) m/uL Hgb (11.4-16.0) gm/dL Hct (34.0-46.0) % MCV (80.0-100.0) fL MCH (25.0-35.0) pg MCHC (31.0-37.0) g/dL RDW (11.5-15.5) % Plt Count (150-450) k/uL MPV Neutrophils % % Lymphocytes % % Monocytes % % Eosinophils % % Basophils % % Neutrophils # (1.3-7.7) k/uL Lymphocytes # (1.0-4.8) k/uL Monocytes # (0-1.0) k/uL Eosinophils # (0-0.7) k/uL Basophils # (0-0.2) k/uL Anisocytosis PT (9.0-12.0) sec INR (<1.2) APTT (22.0-30.0) sec Sodium 129 L (137-145) mmol/L Potassium 6.1 H* (3.5-5.1) mmol/L Chloride 100 (98-107) mmol/L Carbon Dioxide 17 L (22-30) mmol/L Anion Gap 12 mmol/L BUN 45 H (7-17) mg/dL Creatinine 1.89 H (0.52-1.04) mg/dL Est GFR (CKD-EPI)AfAm 36 (>60 ml/min/1.73 sqM) Est GFR (CKD-EPI)NonAf 31 (>60 ml/min/1.73 sqM) Glucose 403 H (74-99) mg/dL Plasma Lactic Acid Travon 2.5 H* (0.7-2.0) mmol/L Calcium 9.4 (8.4-10.2) mg/dL Total Bilirubin 0.4 (0.2-1.3) mg/dL AST 57 H (14-36) U/L ALT 33 (4-34) U/L Alkaline Phosphatase 138 H (38-126) U/L C-Reactive Protein 7.1 H (<1.0) mg/dL Total Protein 7.0 (6.3-8.2) g/dL Albumin 3.9 (3.5-5.0) g/dL Urine Color Urine Appearance (Clear) Urine pH (5.0-8.0) Ur Specific [place] (1.001-1.035) Urine Protein (Negative) Urine Glucose (UA) (Negative) Urine Ketones (Negative) Urine Blood (Negative) Urine Nitrite (Negative) Urine Bilirubin (Negative) Urine Urobilinogen (<2.0) mg/dL Ur Leukocyte Esterase (Negative) Urine RBC (0-5) /hpf Urine WBC (0-5) /hpf Ur Squamous Epith Cells (0-4) /hpf Urine Bacteria (None) /hpf Hyaline Casts (0-2) /lpf Urine Mucus (None) /hpf Critical Care Time Critical Care Time: Yes Total Critical Care Time: 35 Disposition Clinical Impression: Abdominal wall cellulitis, Abdominal wall skin ulcer, Hyperkalemia, Hyperglycemia Disposition: [facility] Condition: Serious Referrals: Guillermo Cerda MD [Primary Care Provider] - 1-2 days
[2021-01-10 20:37] LABS: Appearance,Urine Turbid (Clear); Bacteria,Urine Rare /hpf; Bilirubin,Urine Negative (Negative); Blood,Urine Large (Negative); Color,Urine Yellow; Glucose,Urine (UA) 2+ (Negative); Hyaline Casts,Urine 28 /lpf (0-2); Ketones,Urine Negative (Negative); Leukocyte Esterase,Urine Large (Negative); Mucus,Urine Rare /hpf; Nitrite,Urine Negative (Negative); Protein,Urine 1+ (Negative); RBC,Urine 11 /hpf (0-5); Specific Gravity,Urine 1.022 (1.001-1.035); Squamous Epithelial Cell,Urine 27 /hpf (0-4); WBC,Urine 12 /hpf (0-5)
[2021-01-10 20:46] LABS: Albumin 3.9 g/dL (3.5-5.0); C Reactive Protein 7.1 mg/dL (<1.0); Calcium 9.4 mg/dL (8.4-10.2); Total Bilirubin 0.4 mg/dL (0.2-1.3)
[2021-01-10 20:52] LABS: INR 0.9 (<1.2); Partial Thromboplastin Time 22.1 sec (22.0-30.0); Prothrombin Time 10.1 sec (9.0-12.0)
[2021-01-10 20:56] LABS: Potassium 6.1 mmol/L (3.5-5.1)
[2021-01-10] MEDS ORDERED: SODIUM CHLORIDE 0.9% 1,000 ML IV ONE (21:01)
[2021-01-10] MEDS ORDERED: SODIUM CHLORIDE 0.9% 500 ML 500 ML IV ONE (21:01)
[2021-01-10] MEDS ORDERED: INSULIN REGULAR 100 UNIT/ML VIAL (IV) IV ONE (21:01)
[2021-01-10] MEDS ORDERED: HYDROmorphone 0.5 MG/0.5 ML SYRINGE IVP STA (21:20)
[2021-01-10] MEDS ORDERED: ONDANSETRON 4 MG/2 ML VIAL IVP STA (21:20)
[2021-01-10] MEDS ORDERED: FUROSEMIDE 10 MG/ML 4 ML VIAL IV STA (21:31)
[2021-01-10] MEDS ORDERED: SODIUM BICARB 8.4% 50 ML SYR (1 MEQ/ML) IV STA (21:32)
[2021-01-10] MEDS ORDERED: ONDANSETRON 4 MG/2 ML VIAL IVP PRN (21:37)
[2021-01-10] MEDS ORDERED: NALOXONE 0.4 MG/ML 1 ML VIAL IV PRN (21:37)
[2021-01-10] MEDS: SODIUM CHLORIDE 0.9% 1,000 ML IV SCH (23:45)
[2021-01-11] MEDS: HYDROmorphone 0.5 MG/0.5 ML SYRINGE IVP PRN ×5 (00:35→21:21)
[2021-01-11] MEDS: PIPERACILLIN-TAZOBACTAM 3.375 GM in SODIUM CHLORIDE 0.9% 100 ML IVPB SCH ×3 (04:45→21:21)
[2021-01-11 06:53] LABS: Glucose,Whole Blood 320 mg/dL (75-99)
--- NOTE | 2021-01-11 10:23 | HP ---
HISTORY AND PHYSICAL CHIEF COMPLAINT: Abdominal wall cellulitis with necrotic ulceration. HISTORY OF PRESENT ILLNESS: This is another admission for this 50-year-old white female. She has a history of poorly controlled diabetes mellitus. She came into the office on the day of admission with a history of painful redness and swelling in the abdomen. She was found to have a 2 x 3 necrotic ulcer in the lower abdominal pannicular panniculus pannicular fold. She also had extensive cellulitis in the right lower quadrant. She had another area in the left lower quadrant with surrounding cellulitis. Blood sugar was over 400. REVIEW OF SYSTEMS: She denied fever as far as she knew. She did have chills. She has had no headache, chest pain, shortness of breath, cough, nausea, vomiting, diarrhea, urinary complaints, etc. HISTORY: Past medical history, family history personal and social histories are otherwise noncontributory and unchanged. She is not allergic to any medication. She is on Nasacort, trazodone, tramadol, Levemir, lisinopril, atorvastatin, NovoLog, fenofibrate, vitamin D, Nexium, as well as metformin. She does have a history of hypertriglyceridemia and secondary episodes of pancreatitis. She does smoke. PHYSICAL EXAMINATION: Blood pressure 118/66, pulse 77, respirations 17, temperature 96.8. In general she appeared to be overweight and in no acute distress. Head, ears, eyes, nose, mouth and throat were normal. Chest is clear. Cardiac exam is normal. The abdomen was protuberant. She had a large panniculus and underneath the panniculus in the lower abdomen there was a 2 x 3 necrotic ulcer with surrounding erythema. She had several other smaller areas in the left lower quadrant. Extremities normal. Neurologically she is intact. ADMITTING DIAGNOSES: 1. Necrotic ulcer under the panniculus in the abdominal wall. 2. Abdominal wall cellulitis. 3. Uncontrolled insulin-dependent diabetes mellitus. PLAN: 1. Bedrest. 2. IV fluids. 3. Cultures. 4. IV antibiotics. MMODL / IJN: [id number] /
--- NOTE | 2021-01-11 11:10 | P.CONS ---
History of Present Illness - Reason for Consult Consult date: 01/11/21 wound care - History of Present Illness This is a 50-year-old patient being seen on observation for nonhealing ulceration to the mid line Abdomen. Patient states that the ulceration has been there for approximately 2 weeks. She was seen by her primary care doctor who referred her to the hospital for treatment and culture. Patient's past medical history significant for diabetes, GERD, hyperlipidemia. She is a current every day smoker. Midline ulceration measures approximately 2 x 4 x 0.1 cm with significant amount of slough and eschar and nonviable tissue present to the wound bed. No granulation seen within the wound bed. No tunneling or undermining noted. The periwound sounds significant excoriation to the pannus measuring approximately 4 x 12 cm. The pannus skin is intact. Significant amount of serosanguineous drainage noted to the site. Review Of Systems: Constitutional: No fever, no chills, no night sweats. No weight change. No weakness, fatigue or lethargy. No daytime sleepiness. Integumentary:reports wounds, no lesions. No rash or pruritus. No unusual bruising. No change in hair or nails. Physical exam: General Appearance: Alert, cooperative, no distress, appears stated age. Skin: See HPI all other Skin color, texture, tugor normal, no rashes or lesions. Neurologic: Alert oriented x3 Assessment: 1. Nonhealing ulceration to abdomen with fat layer exposure 2. Excoriation to pannus 3. Diabetes a skin ulcer 4. Nicotine dependence Plan: 1.Apply honey alginate, saline moist gauze, dry gauze and ABD. Secure with tape. Apply triad to the pannus and excoriation. She would benefit from outpatient wound care once discharged. We are happy to see her in the wound care center. Thank you for the consultation any questions please contact the wound care center DNP note has been reviewed and discussed with Dr. Ng and the impression and plan of care has been directed as dictated. Past Medical History Past Medical History: Diabetes Mellitus, GERD/Reflux, Hyperlipidemia, Syncope Additional Past Medical History / Comment(s): Pancreatitis twice, NIDDM type II, UTI, chronic low back pain, bulging discs, dental abscesses in past. History of Any Multi-Drug Resistant Organisms: None Reported Past Surgical History: Tubal Ligation Additional Past Surgical History / Comment(s): Age 7 had VSD repair Past Anesthesia/Blood Transfusion Reactions: No Reported Reaction Past Psychological History: No Psychological Hx Reported Additional Psychological History / Comment(s): She uses no assistive devices. She does not drive. She gets to appointments by walking or using the bus system. She has a glucometer at home. Smoking Status: Current every day smoker Past Alcohol Use History: None Reported Additional Past Alcohol Use History / Comment(s): Pt started smoking in 2000- smokes 5 cigarettes a day. Past Drug Use History: None Reported - Past Family History Mother Family Medical History: No Reported History Additional Family Medical History / Comment(s): Mother was healthy. She is , pt cannot recall cause of . Father Family Medical History: Pneumonia Additional Family Medical History / Comment(s): Father at the age of 67yrs from pneumonia Medications and Allergies Home Medications Medication Instructions Recorded Confirmed Type Fenofibrate [Lofibra] 160 mg PO DAILY #30 tab 03/23/19 01/11/21 Rx Insulin Detemir (Levemir) [Levemir] 20 unit SQ DAILY 04/11/19 01/11/21 History Atorvastatin [Lipitor] 80 mg PO DAILY 06/25/19 01/11/21 History Ergocalciferol (Vitamin D2) 50,000 unit PO Q30D 06/25/19 01/11/21 History [Drisdol (50,000 Iu)] INSULIN ASPART (NovoLOG) [NovoLOG 18 unit SQ AC-TID 06/25/19 01/11/21 History (formulary)] Esomeprazole Magnesium [NexIUM] 20 mg PO DAILY 09/24/20 01/11/21 History lisinopriL 40 mg PO DAILY 09/24/20 01/11/21 History metFORMIN HCL [Glucophage] 500 mg PO DAILY 09/24/20 01/11/21 History Hydrocortisone Cream 1 applic TOPICAL BID PRN 01/11/21 01/11/21 History [Hydrocortisone 2.5% Cream] Levofloxacin [Levaquin] 500 mg PO DAILY 01/11/21 01/11/21 History traZODone HCL 50 - 100 mg PO HS PRN 01/11/21 01/11/21 History Allergies Allergy/AdvReac Type Severity Reaction Status Date / Time No Known Allergies Allergy Verified 01/11/21 08:40 Physical Exam Vitals: Vital Signs Temp Pulse Pulse Resp BP BP Pulse Ox 01/11/21 04:29 98.7 F 71 18 106/57 94 L 01/11/21 01:40 98.8 F 67 16 128/60 94 L 01/10/21 22:52 67 20 119/67 95 01/10/21 16:37 99.3 F 78 20 102/62 Intake and Output 01/10/21 01/11/21 01/11/21 22:59 06:59 14:59 Intake Total 500 Balance 500 Intake: Oral 500 Other: # Voids 1 Weight 97.069 kg Results CBC & Chem 7: 01/10/21 20:23 01/11/21 07:37 Labs: Abnormal Lab Results - Last 24 Hours (Table) 01/10/21 01/10/21 01/10/21 Range/Units 20:23 20:23 20:23 WBC 15.3 H (3.8-10.6) k/uL RDW 16.3 H (11.5-15.5) % Plt Count 631 H (150-450) k/uL Neutrophils # 11.9 H (1.3-7.7) k/uL Sodium 129 L (137-145) mmol/L Potassium 6.1 H* (3.5-5.1) mmol/L Carbon Dioxide 17 L (22-30) mmol/L BUN 45 H (7-17) mg/dL Creatinine 1.89 H (0.52-1.04) mg/dL Glucose 403 H (74-99) mg/dL POC Glucose (mg/dL) (75-99) mg/dL Plasma Lactic Acid [place]on (0.7-2.0) mmol/L AST 57 H (14-36) U/L Alkaline Phosphatase 138 H (38-126) U/L C-Reactive Protein 7.1 H (<1.0) mg/dL Urine Appearance Turbid H (Clear) Urine Protein 1+ H (Negative) Urine Glucose (UA) 2+ H (Negative) Urine Blood Large H (Negative) Ur Leukocyte Esterase Large H (Negative) Urine RBC 11 H (0-5) /hpf Urine WBC 12 H (0-5) /hpf Ur Squamous Epith Cells 27 H (0-4) /hpf Urine Bacteria Rare H (None) /hpf Hyaline Casts 28 H (0-2) /lpf Urine Mucus Rare H (None) /hpf 01/10/21 01/11/21 01/11/21 Range/Units 20:23 06:50 07:37 WBC (3.8-10.6) k/uL RDW (11.5-15.5) % Plt Count (150-450) k/uL Neutrophils # (1.3-7.7) k/uL Sodium (137-145) mmol/L Potassium (3.5-5.1) mmol/L Carbon Dioxide (22-30) mmol/L BUN (7-17) mg/dL Creatinine 1.59 H (0.52-1.04) mg/dL Glucose (74-99) mg/dL POC Glucose (mg/dL) 320 H (75-99) mg/dL Plasma Lactic Acid [place]on 2.5 H* (0.7-2.0) mmol/L AST (14-36) U/L Alkaline Phosphatase (38-126) U/L C-Reactive Protein (<1.0) mg/dL Urine Appearance (Clear) Urine Protein (Negative) Urine Glucose (UA) (Negative) Urine Blood (Negative) Ur Leukocyte Esterase (Negative) Urine RBC (0-5) /hpf Urine WBC (0-5) /hpf Ur Squamous Epith Cells (0-4) /hpf Urine Bacteria (None) /hpf Hyaline Casts (0-2) /lpf Urine Mucus (None) /hpf Microbiology - Last 24 Hours (Table) 01/11/21 00:01 Wound Culture - Preliminary Abdomen 01/10/21 20:23 Urine Culture - Preliminary Urine,Clean Catch Assessment and Plan (1) Non-pressure chronic ulcer of skin of other sites with fat layer exposed Current Visit: Yes Status: Acute Code(s): L98.492 - NON-PRS CHRONIC ULCER OF SKIN OF SITES W FAT LAYER EXPOSED SNOMED Code(s): 02566520 (2) Excoriation of abdomen Current Visit: Yes Status: Acute Code(s): S30.811A - ABRASION OF ABDOMINAL WALL, INITIAL ENCOUNTER SNOMED Code(s): 95566867 (3) Type 2 diabetes mellitus with other skin ulcer Current Visit: Yes Status: Acute Code(s): E11.622 - TYPE 2 DIABETES MELLITUS WITH OTHER SKIN ULCER; L98.499 - NON-PRESSURE CHRONIC ULCER OF SKIN OF SITES W UNSP SEVERITY SNOMED Code(s): 173598777 (4) Nicotine dependence Current Visit: Yes Status: Acute Code(s): F17.200 - NICOTINE DEPENDENCE, UNSPECIFIED, UNCOMPLICATED SNOMED Code(s): 96400788
[2021-01-11] MEDS: FENOFIBRATE 160 MG TAB PO SCH (11:22)
[2021-01-11] MEDS: SODIUM CHLORIDE 0.9% 1,000 ML IV SCH (11:23)
[2021-01-11] MEDS: INSULIN ASPART (NovoLOG) 100 UNIT/ML VIAL SQ SCH ×2 (11:29→17:05)
[2021-01-11] MEDS: HYDROPHILIC CREAM 180 GM TUBE TOPICAL SCH (11:29)
[2021-01-11] MEDS: lisinopriL 20 MG TAB PO SCH (11:29)
[2021-01-11] MEDS: ATORVASTATIN 80 MG TAB PO SCH (11:29)
[2021-01-11] MEDS ORDERED: VANCOMYCIN 1,500 MG in SODIUM CHLORIDE 0.9% 250 ML IVPB ONE (12:00)
[2021-01-11 12:03] LABS: Glucose,Whole Blood 352 mg/dL (75-99)
[2021-01-11] MEDS: INSULIN DETEMIR (LEVEMIR) 100 UNIT/ML SYR SQ SCH (12:28)
[2021-01-11 17:04] LABS: Glucose,Whole Blood 240 mg/dL (75-99)
[2021-01-11 20:41] LABS: Glucose,Whole Blood 187 mg/dL (75-99)
--- NOTE | 2021-01-11 22:56 | PN ---
PROGRESS NOTE CHIEF COMPLAINT: Necrotic ulcer of the lower abdominal wall with cellulitis. HISTORY OF PRESENT ILLNESS: This lady is still having quite a bit of discomfort. Temperature has been down. Sugars are still elevated. PHYSICAL EXAMINATION: She is awake, alert. Skin color is normal. Skin is dry. Chest is clear. Cardiac exam is normal and there has been no change in the ulcer on the abdominal wall up to this point. IMPRESSION: 1. Necrotic ulcer of the panniculus of the lower abdomen with cellulitis. 2. Uncontrolled diabetes. PLAN: 1. Continue with IV fluids and antibiotics. 2. Reorder her insulin. MMODL / IJN: [id number] /
[2021-01-12] MEDS: HYDROmorphone 0.5 MG/0.5 ML SYRINGE IVP PRN ×2 (01:02→06:14)
[2021-01-12] MEDS: SODIUM CHLORIDE 0.9% 1,000 ML IV SCH ×2 (01:18→17:04)
[2021-01-12] MEDS: PIPERACILLIN-TAZOBACTAM 3.375 GM in SODIUM CHLORIDE 0.9% 100 ML IVPB SCH ×3 (06:17→21:33)
[2021-01-12 06:57] LABS: Glucose,Whole Blood 223 mg/dL (75-99)
[2021-01-12] MEDS ORDERED: INSULIN DETEMIR (LEVEMIR) 100 UNIT/ML SYR SQ SCH (07:00)
[2021-01-12] MEDS: INSULIN ASPART (NovoLOG) 100 UNIT/ML VIAL SQ SCH ×3 (07:09→17:03)
[2021-01-12] MEDS: INSULIN DETEMIR (LEVEMIR) 100 UNIT/ML SYR SQ SCH (07:09)
[2021-01-12] MEDS: ATORVASTATIN 80 MG TAB PO SCH (08:37)
[2021-01-12] MEDS: PANTOPRAZOLE 40 MG TABLET PO SCH (08:38)
[2021-01-12] MEDS: lisinopriL 20 MG TAB PO SCH (08:38)
[2021-01-12] MEDS: FENOFIBRATE 160 MG TAB PO SCH (08:38)
[2021-01-12] MEDS: HYDROPHILIC CREAM 180 GM TUBE TOPICAL SCH (08:38)
[2021-01-12] MEDS ORDERED: FENOFIBRATE 160 MG TAB PO SCH (09:00)
[2021-01-12] MEDS ORDERED: ATORVASTATIN 80 MG TAB PO SCH (09:00)
[2021-01-12] MEDS ORDERED: lisinopriL 20 MG TAB PO SCH (09:00)
[2021-01-12] MEDS: HYDROcodone/APAP 5-325MG 1 EACH TAB PO PRN ×4 (10:29→22:19)
[2021-01-12 11:11] LABS: Glucose,Whole Blood 229 mg/dL (75-99)
[2021-01-12] MEDS: VANCOMYCIN 1,750 MG in SODIUM CHLORIDE 0.9% 500 ML 500 ML IVPB SCH (12:13)
[2021-01-12 16:58] LABS: Glucose,Whole Blood 314 mg/dL (75-99)
--- NOTE | 2021-01-12 18:08 | PN ---
PROGRESS NOTE CHIEF COMPLAINT: Uncontrolled diabetes and necrotic ulcer of the abdominal wall. HISTORY OF PRESENT ILLNESS: This lady's discomfort is somewhat better and the cellulitis is improving. Blood sugars are coming down. REVIEW OF SYSTEMS: She is having less pain. PHYSICAL EXAMINATION: Chest is clear. Cardiac exam is normal. Abdomen is soft, nontender. IMPRESSION: 1. Necrotic ulcer of the abdominal panniculus with cellulitis. 2. Uncontrolled diabetes. PLAN: 1. Continue to monitor blood sugars. 2. Nystatin powder for the intertriginous folds. MMODL / IJN: [id number] /
[2021-01-12 20:23] LABS: Glucose,Whole Blood 328 mg/dL (75-99)
[2021-01-12] MEDS: traZODone HCL 50 MG TAB PO PRN (21:32)
[2021-01-12] MEDS: ACETAMINOPHEN TAB 325 MG TAB PO PRN (21:32)
[2021-01-12] MEDS: NYSTATIN 100,000 UNIT/GM POWD 15 GM TOPICAL SCH (22:24)
[2021-01-13] MEDS: SODIUM CHLORIDE 0.9% 1,000 ML IV SCH ×2 (05:10→17:37)
[2021-01-13] MEDS: PIPERACILLIN-TAZOBACTAM 3.375 GM in SODIUM CHLORIDE 0.9% 100 ML IVPB SCH ×3 (05:12→21:13)
[2021-01-13] MEDS: HYDROcodone/APAP 5-325MG 1 EACH TAB PO PRN ×5 (05:12→21:31)
[2021-01-13] MEDS: VANCOMYCIN 1,750 MG in SODIUM CHLORIDE 0.9% 500 ML 500 ML IVPB SCH (06:18)
[2021-01-13 06:47] LABS: Glucose,Whole Blood 204 mg/dL (75-99)
[2021-01-13] MEDS ORDERED: INSULIN DETEMIR (LEVEMIR) 100 UNIT/ML SYR SQ SCH (07:00)
[2021-01-13] MEDS: INSULIN ASPART (NovoLOG) 100 UNIT/ML VIAL SQ SCH ×3 (08:24→17:37)
[2021-01-13] MEDS: ATORVASTATIN 80 MG TAB PO SCH (08:24)
[2021-01-13] MEDS: PANTOPRAZOLE 40 MG TABLET PO SCH (08:24)
[2021-01-13] MEDS: lisinopriL 20 MG TAB PO SCH (08:25)
[2021-01-13] MEDS: FENOFIBRATE 160 MG TAB PO SCH (08:25)
[2021-01-13 08:26] LABS: African American GFR (CKD) 65 (>60 ml/min/1.73 sqM); Anion Gap 6 mmol/L; Blood Urea Nitrogen 24 mg/dL (7-17); Calcium 8.6 mg/dL (8.4-10.2); Carbon Dioxide 20 mmol/L (22-30); Chloride 110 mmol/L (98-107); Glucose 204 mg/dL (74-99); Non-African American GFR(CKD) 56 (>60 ml/min/1.73 sqM); Potassium 5.6 mmol/L (3.5-5.1); Sodium 136 mmol/L (137-145)
[2021-01-13 11:40] LABS: Glucose,Whole Blood 326 mg/dL (75-99)
--- NOTE | 2021-01-13 14:18 | PN ---
PROGRESS NOTE CHIEF COMPLAINT: Abdominal wall necrotic ulcer with cellulitis. HISTORY OF PRESENT ILLNESS: This lady is doing a bit better. Cellulitis is receding quickly. Blood sugars are still high. PHYSICAL EXAMINATION: Chest is clear. Cardiac exam is normal and the abdominal wall is greatly improved with much less erythema and cellulitis. IMPRESSION: 1. Abdominal wall necrotic ulcer with cellulitis. 2. Uncontrolled diabetes. PLAN: Increase insulin from 40-60 units a day. MMODL / IJN: [id number] /
[2021-01-13] MEDS: HYDROmorphone 0.5 MG/0.5 ML SYRINGE IVP PRN ×2 (16:08→23:26)
[2021-01-13] MEDS: HYDROPHILIC CREAM 180 GM TUBE TOPICAL SCH (16:09)
[2021-01-13] MEDS: NYSTATIN 100,000 UNIT/GM POWD 15 GM TOPICAL SCH ×2 (16:09→21:13)
[2021-01-13 16:45] LABS: Glucose,Whole Blood 284 mg/dL (75-99)
[2021-01-13 20:50] LABS: Glucose,Whole Blood 267 mg/dL (75-99)
[2021-01-14] MEDS: VANCOMYCIN 1,750 MG in SODIUM CHLORIDE 0.9% 500 ML 500 ML IVPB SCH ×2 (00:26→17:26)
[2021-01-14] MEDS: HYDROcodone/APAP 5-325MG 1 EACH TAB PO PRN ×5 (03:27→20:15)
[2021-01-14] MEDS: PIPERACILLIN-TAZOBACTAM 3.375 GM in SODIUM CHLORIDE 0.9% 100 ML IVPB SCH ×3 (05:31→21:32)
[2021-01-14] MEDS ORDERED: INSULIN DETEMIR (LEVEMIR) 100 UNIT/ML SYR SQ SCH (07:00)
[2021-01-14 07:34] LABS: Glucose,Whole Blood 210 mg/dL (75-99)
[2021-01-14] MEDS: FENOFIBRATE 160 MG TAB PO SCH (07:35)
[2021-01-14] MEDS: ATORVASTATIN 80 MG TAB PO SCH (07:35)
[2021-01-14] MEDS: PANTOPRAZOLE 40 MG TABLET PO SCH (07:35)
[2021-01-14] MEDS: INSULIN ASPART (NovoLOG) 100 UNIT/ML VIAL SQ SCH ×3 (07:35→17:08)
[2021-01-14] MEDS: lisinopriL 20 MG TAB PO SCH (07:35)
[2021-01-14] MEDS: HYDROPHILIC CREAM 180 GM TUBE TOPICAL SCH (07:36)
[2021-01-14] MEDS: NYSTATIN 100,000 UNIT/GM POWD 15 GM TOPICAL SCH ×2 (07:36→20:15)
[2021-01-14] MEDS: ACETAMINOPHEN TAB 325 MG TAB PO PRN (07:38)
[2021-01-14] MEDS: SODIUM CHLORIDE 0.9% 1,000 ML IV SCH ×2 (09:03→20:25)
[2021-01-14 11:34] LABS: Glucose,Whole Blood 260 mg/dL (75-99)
[2021-01-14 16:20] LABS: Glucose,Whole Blood 233 mg/dL (75-99)
[2021-01-14] MEDS: HYDROmorphone 0.5 MG/0.5 ML SYRINGE IVP PRN ×2 (17:07→23:53)
--- NOTE | 2021-01-14 17:46 | PN ---
PROGRESS NOTE DATE OF SERVICE: 01/14/2021 CHIEF COMPLAINT: Necrotic ulcer of the abdomen with cellulitis and uncontrolled diabetes. HISTORY OF PRESENT ILLNESS: This lady is doing a little bit better. Pain is improving. Blood sugars are still high and her insulin will be increased. PHYSICAL EXAMINATION: She is afebrile. Vital signs are normal. Chest is clear. Cardiac exam is normal. The abdomen is soft and cellulitis is receding. The ulcerated area is dry and is improving. MMODL / IJN: [id number] /
[2021-01-14 20:26] LABS: Glucose,Whole Blood 283 mg/dL (75-99)
[2021-01-15] MEDS: HYDROcodone/APAP 5-325MG 1 EACH TAB PO PRN ×4 (05:01→22:54)
[2021-01-15] MEDS: PIPERACILLIN-TAZOBACTAM 3.375 GM in SODIUM CHLORIDE 0.9% 100 ML IVPB SCH ×3 (05:01→20:09)
[2021-01-15] MEDS ORDERED: INSULIN DETEMIR (LEVEMIR) 100 UNIT/ML SYR SQ SCH (07:00)
[2021-01-15 07:15] LABS: Glucose,Whole Blood 195 mg/dL (75-99)
[2021-01-15] MEDS: SODIUM CHLORIDE 0.9% 1,000 ML IV SCH ×2 (08:20→22:57)
[2021-01-15] MEDS: FENOFIBRATE 160 MG TAB PO SCH (08:21)
[2021-01-15] MEDS: lisinopriL 20 MG TAB PO SCH (08:21)
[2021-01-15] MEDS: ATORVASTATIN 80 MG TAB PO SCH (08:21)
[2021-01-15] MEDS: PANTOPRAZOLE 40 MG TABLET PO SCH (08:21)
[2021-01-15] MEDS: INSULIN ASPART (NovoLOG) 100 UNIT/ML VIAL SQ SCH ×3 (08:22→16:55)
[2021-01-15] MEDS: NYSTATIN 100,000 UNIT/GM POWD 15 GM TOPICAL SCH ×2 (08:25→20:14)
[2021-01-15] MEDS: HYDROPHILIC CREAM 180 GM TUBE TOPICAL SCH (08:25)
[2021-01-15] MEDS: HYDROmorphone 0.5 MG/0.5 ML SYRINGE IVP PRN ×3 (08:31→20:09)
[2021-01-15] MEDS ORDERED: VANCOMYCIN TROUGH DUE 1 EACH MISC MISCELLANE ONE (11:00)
[2021-01-15 11:28] LABS: Glucose,Whole Blood 260 mg/dL (75-99)
[2021-01-15] MEDS: VANCOMYCIN 1,750 MG in SODIUM CHLORIDE 0.9% 500 ML 500 ML IVPB SCH (12:33)
--- NOTE | 2021-01-15 13:55 | PN ---
PROGRESS NOTE DATE OF SERVICE: 01/15/2021 CHIEF COMPLAINT: Cellulitis abdominal wall with necrotic ulcer of the panniculus. HISTORY OF PRESENT ILLNESS: This lady's pain is getting better each day. She is doing fairly well otherwise. Blood sugars are still high. PHYSICAL EXAM: Cellulitis is improving. The ulcer has been debrided and looks much better. Chest is clear. Cardiac exam is normal. IMPRESSION: 1. Abdominal wall necrotic ulcer. 2. Cellulitis of the abdominal wall. 3. Macerations. 4. Uncontrolled diabetes. PLAN: I raised her insulin from 70-80 units and she will probably be able to go home soon. There was concern about how well she will be able to manage this at home. MMODL / IJN: [id number] /
[2021-01-15 16:34] LABS: Glucose,Whole Blood 199 mg/dL (75-99)
[2021-01-15 20:23] LABS: Glucose,Whole Blood 256 mg/dL (75-99)
[2021-01-16] MEDS: HYDROmorphone 0.5 MG/0.5 ML SYRINGE IVP PRN (01:10)
[2021-01-16] MEDS: PIPERACILLIN-TAZOBACTAM 3.375 GM in SODIUM CHLORIDE 0.9% 100 ML IVPB SCH ×3 (05:11→20:52)
[2021-01-16] MEDS: HYDROcodone/APAP 5-325MG 1 EACH TAB PO PRN ×5 (05:11→23:19)
[2021-01-16] MEDS: VANCOMYCIN 1,750 MG in SODIUM CHLORIDE 0.9% 500 ML 500 ML IVPB SCH ×2 (05:17→23:20)
[2021-01-16 07:13] LABS: Glucose,Whole Blood 168 mg/dL (75-99)
[2021-01-16] MEDS: lisinopriL 20 MG TAB PO SCH (07:39)
[2021-01-16] MEDS: PANTOPRAZOLE 40 MG TABLET PO SCH (07:39)
[2021-01-16] MEDS: ATORVASTATIN 80 MG TAB PO SCH (07:39)
[2021-01-16] MEDS: INSULIN DETEMIR (LEVEMIR) 100 UNIT/ML SYR SQ SCH (07:39)
[2021-01-16] MEDS: INSULIN ASPART (NovoLOG) 100 UNIT/ML VIAL SQ SCH ×3 (07:39→17:18)
[2021-01-16] MEDS: NYSTATIN 100,000 UNIT/GM POWD 15 GM TOPICAL SCH ×2 (07:40→20:58)
[2021-01-16] MEDS: HYDROPHILIC CREAM 180 GM TUBE TOPICAL SCH (07:40)
[2021-01-16] MEDS: SODIUM CHLORIDE 0.9% 1,000 ML IV SCH ×2 (07:40→22:11)
[2021-01-16] MEDS: FENOFIBRATE 160 MG TAB PO SCH (07:41)
[2021-01-16 12:06] LABS: Glucose,Whole Blood 197 mg/dL (75-99)
--- NOTE | 2021-01-16 13:38 | PN ---
PROGRESS NOTE DATE OF SERVICE: 01/16/2021 CHIEF COMPLAINT: Necrotic ulcer, abdominal wall, with cellulitis and uncontrolled diabetes. HISTORY OF PRESENT ILLNESS: This lady is fairly stable. Blood sugars are still slightly elevated, but they are coming down. Wound Care is cleaning up the ulcer and she will probably be able to go home soon. PHYSICAL EXAMINATION: Vital signs are normal. The chest is clear. Cardiac exam is normal and the abdomen is soft. The ulcer is clean and there is no necrotic tissue. There is no surrounding cellulitis. IMPRESSION: 1. Necrotic ulcer of the lower abdomen with cellulitis. 2. Uncontrolled diabetes. PLAN: Continue with local wound care and probably home in a day or two. MMODL / IJN: [id number] /
[2021-01-16 16:38] LABS: Glucose,Whole Blood 242 mg/dL (75-99)
[2021-01-16 20:47] LABS: Glucose,Whole Blood 240 mg/dL (75-99)
[2021-01-16] MEDS: traZODone HCL 50 MG TAB PO PRN (20:52)
[2021-01-16] MEDS: ACETAMINOPHEN TAB 325 MG TAB PO PRN (20:53)
[2021-01-17] MEDS: HYDROcodone/APAP 5-325MG 1 EACH TAB PO PRN ×2 (05:26→12:46)
[2021-01-17] MEDS: PIPERACILLIN-TAZOBACTAM 3.375 GM in SODIUM CHLORIDE 0.9% 100 ML IVPB SCH ×2 (05:26→12:07)
[2021-01-17 06:50] LABS: Glucose,Whole Blood 148 mg/dL (75-99)
[2021-01-17] MEDS: HYDROmorphone 0.5 MG/0.5 ML SYRINGE IVP PRN (07:17)
[2021-01-17] MEDS: FENOFIBRATE 160 MG TAB PO SCH (08:37)
[2021-01-17] MEDS: ATORVASTATIN 80 MG TAB PO SCH (08:37)
[2021-01-17] MEDS: PANTOPRAZOLE 40 MG TABLET PO SCH (08:37)
[2021-01-17] MEDS: INSULIN ASPART (NovoLOG) 100 UNIT/ML VIAL SQ SCH ×2 (08:37→12:08)
[2021-01-17] MEDS: lisinopriL 20 MG TAB PO SCH (08:37)
[2021-01-17] MEDS: NYSTATIN 100,000 UNIT/GM POWD 15 GM TOPICAL SCH (08:54)
[2021-01-17] MEDS: INSULIN DETEMIR (LEVEMIR) 100 UNIT/ML SYR SQ SCH (08:54)
[2021-01-17] MEDS: HYDROPHILIC CREAM 180 GM TUBE TOPICAL SCH (08:54)
[2021-01-17 11:45] LABS: Glucose,Whole Blood 187 mg/dL (75-99)
[2021-01-17] MEDS: SODIUM CHLORIDE 0.9% 1,000 ML IV SCH (12:45)
[2021-01-17 13:25] VITALS: BMI 41.8
[2021-01-17 14:11] VITALS: BP 128/72; PULSE 62; RESP 16; TEMP 98.9
--- NOTE | 2021-01-17 18:52 | DS ---
DISCHARGE SUMMARY CHIEF COMPLAINT: Abdominal wall cellulitis and ulcer. HISTORY OF PRESENT ILLNESS AND PHYSICAL EXAMINATION: Details of this lady's history and physical can be found in the initial workup. LABORATORY STUDIES: While she was in the hospital, she had laboratory studies, details of which can be found in the laboratory section of her chart. COURSE IN THE HOSPITAL: After admission she was placed on bedrest, started on intravenous fluids and IV antibiotics. She was seen and managed by wound care. The ulcer was debrided and cellulitis responded well to IV antibiotics. Blood sugars were brought down and into therapeutic range. It was felt she could go home on January 17 and she will go home on usual activity and diet. She will be set up with home care with [facility]. We will follow her up in the office as well. FINAL DIAGNOSES: 1. Necrotic ulcer of the abdominal wall. 2. Cellulitis of the abdominal wall. 3. Uncontrolled type 2 insulin dependent diabetes mellitus. OPERATIONS: None. CONSULTATIONS: Wound Care. She is improved. MMPAULA / EVELINN: [id number] /
[2021-01-18] MEDS ORDERED: VANCOMYCIN TROUGH DUE 1 EACH MISC MISCELLANE ONE (11:00)
== END 2021-01-17 16:43 | disposition home health service (06) | DRG 638 ==
LOC: EC 16:25 → 4SSUR 21:30 → 1SOBS 01-11 00:55 → 4SSUR 01-12 14:50
PROVIDERS: ADMIT Family Medicine; ATTEND Family Medicine
DX: E11.628 Type 2 diabetes mellitus with other skin complications (principal); L02.211 Cutaneous abscess of abdominal wall; L03.311 Cellulitis of abdominal wall; E11.65 Type 2 diabetes mellitus with hyperglycemia; Z79.4 Long term (current) use of insulin; Z79.84 Long term (current) use of oral hypoglycemic drugs; E11.622 Type 2 diabetes mellitus with other skin ulcer; E78.1 Pure hyperglyceridemia; E78.5 Hyperlipidemia, unspecified; E65 Localized adiposity; R21 Rash and other nonspecific skin eruption; G89.29 Other chronic pain; E87.5 Hyperkalemia; K21.9 Gastro-esophageal reflux disease without esophagitis; F17.210 Nicotine dependence, cigarettes, uncomplicated; M54.50 Low back pain, unspecified; L98.492 Non-pressure chronic ulcer of skin of other sites with fat layer exposed; S30.811A Abrasion of abdominal wall, initial encounter; Z79.899 Other long term (current) drug therapy; Z20.822 Contact with and (suspected) exposure to COVID-19; Z98.51 Tubal ligation status; Z98.890 Other specified postprocedural states; Z83.6 Family history of other diseases of the respiratory system; Z87.440 Personal history of urinary (tract) infections; Z86.19 Personal history of other infectious and parasitic diseases
CPT/HCPCS: 36415; 80048; 80053; 80202; 81001; 82565; 83605; 85025; 85610; 85730; 86140; 87040; 87070; 87086; 87205; 87635; 93005; 96361; 96365; 96366; 96375; 99284

== ENCOUNTER 2021-02-17 10:55 | Emergency (ER) | payer MEDICARE ==
[2021-02-17] MEDS ORDERED: SODIUM CHLORIDE 0.9% 500 ML 500 ML IV STA (15:10)
[2021-02-17] MEDS ORDERED: ACETAMINOPHEN TAB 325 MG TAB PO STA (15:11)
--- NOTE | 2021-02-17 15:16 | ED ---
URI HPI - General Chief Complaint: Upper Respiratory Infection Stated Complaint: Weakness/cough Time Seen by Provider: 02/17/21 15:01 Source: patient, RN notes reviewed, old records reviewed Mode of arrival: wheelchair Limitations: no limitations - History of Present Illness Initial Comments: Well-appearing 50-year-old female presents to the emergency room with 2 weeks of sore throat, cough and lightheadedness. She states that it has been worsening o melvin the past 2 weeks. She states her cough is productive and clear color. She is also complaining of a frontal headache. She denies any fevers, nausea vomiting or diarrhea. She denies any difficulty breathing or chest pain. She has history of [id number] diabetes, pancreatitis. She states that she did get the coronavirus vaccine 2 months ago. She also got her influenza shot. She denies having any sick contacts. She states that she does live alone. MD Complaint: cough, sore throat, nasal congestion, sinus pain -: week(s) (2) Severity scale (1-10): 0 Consistency: constant Associated Symptoms: myalgias, rhinorrhea, sore throat, shortness of breath, d iarrhea Treatments Prior to Arrival: other (excedrin 0800) - Related Data Home Medications Medication Instructions Recorded Confirmed Atorvastatin [Lipitor] 80 mg PO HS 06/25/19 02/17/21 INSULIN ASPART (NovoLOG) [NovoLOG 18 unit SQ AC-TID 06/25/19 02/17/21 (formulary)] lisinopriL 40 mg PO DAILY 09/24/20 02/17/21 metFORMIN HCL [Glucophage] 500 mg PO DAILY 09/24/20 02/17/21 traZODone HCL 50 - 100 mg PO HS PRN 01/11/21 02/17/21 Insulin Detemir (Levemir) [Levemir] 20 unit SQ DAILY 02/17/21 02/17/21 Previous Rx's Medication Instructions Recorded Fenofibrate [Lofibra] 160 mg PO DAILY #30 tab 03/23/19 Amoxicillin/Potassium Clav 1 tab PO Q12HR 7 Days #14 tab 02/17/21 [Augmentin 875-125 Tablet] Allergies Allergy/AdvReac Type Severity Reaction Status Date / Time levofloxacin [From Levaquin] Allergy Unknown Verified 02/17/21 15:46 Review of Systems ROS Statement: Those systems with pertinent positive or pertinent negative responses have been documented in the HPI. ROS Other: All systems not noted in ROS Statement are negative. Past Medical History Past Medical History: Diabetes Mellitus, GERD/Reflux, Hyperlipidemia, Syncope Additional Past Medical History / Comment(s): Pancreatitis twice, NIDDM type II, UTI, chronic low back pain, bulging discs, dental abscesses in past. History of Any Multi-Drug Resistant Organisms: None Reported Past Surgical History: Tubal Ligation Additional Past Surgical History / Comment(s): Age 7 had VSD repair Past Anesthesia/Blood Transfusion Reactions: No Reported Reaction Past Psychological History: No Psychological Hx Reported Smoking Status: Current every day smoker Past Alcohol Use History: None Reported Past Drug Use History: None Reported - Past Family History Mother Family Medical History: No Reported History Additional Family Medical History / Comment(s): Mother was healthy. She is , pt cannot recall cause of . Father Family Medical History: Pneumonia Additional Family Medical History / Comment(s): Father at the age of 67yrs from pneumonia General Exam Limitations: no limitations General appearance: alert, in no apparent distress Head exam: Present: atraumatic, normocephalic, normal inspection Eye exam: Present: normal appearance, EOMI ENT exam: Present: normal exam, normal oropharynx, mucous membranes moist, other (Tongue piercing) Neck exam: Present: normal inspection, full ROM. Absent: tenderness, meningismus, lymphadenopathy, thyromegaly Respiratory exam: Present: normal lung sounds bilaterally. Absent: respiratory distress, wheezes, rales, rhonchi, stridor, chest wall tenderness, accessory mu scle use, decreased breath sounds Cardiovascular Exam: Present: regular rate, normal rhythm, normal heart sounds. Absent: JVD GI/Abdominal exam: Present: soft, normal bowel sounds. Absent: distended, tenderness, guarding, rebound, rigid Extremities exam: Present: normal inspection, full ROM, normal capillary refill. Absent: tenderness, pedal edema, joint swelling, calf tenderness Back exam: Present: normal inspection, full ROM. Absent: tenderness, CVA tenderness (R), CVA tenderness (L), rash noted Neurological exam: Present: alert, oriented X3 Psychiatric exam: Present: normal affect, normal mood Skin exam: Present: warm, dry, intact, normal color. Absent: rash, cyanosis, diaphoretic, petechiae, pallor Course Vital Signs 02/17/21 02/17/21 02/17/21 11:02 18:47 19:15 Temperature 100.1 F H 98.6 F Pulse Rate 79 74 88 Respiratory 18 18 20 Rate Blood Pressure 119/63 134/64 124/71 O2 Sat by Pulse 98 96 98 Oximetry Medical Decision Making - Medical Decision Making This is a well-appearing 50-year-old female presents to the emergency room with 2 weeks of lightheadedness, cough and low-grade fevers. She states that she also has a frontal headache. Blood glucose is 244, lactic acid is 2.4. She was given 1 L normal saline. Troponin is negative at 0.012. EKG shows acute changes. Coronavirus is negative. Chest x-ray shows no consolidation or pleural effusion, no acute process seen. There is some stranding atelectasis in the left base. There is no evidence of leukocytosis. D-dimer is elevated at 0.67. CTA of the chest shows no evidence of pulmonary embolism. There is no medi astinal adenopathy or hilar masses. The ascending aorta measures 2.8 cm with no filling defect in the pulmonary arteries. Patient continues to have a frontal headache. With her low-grade fever and recent congestion and will treat her for sinusitis. She will be directed to follow up with her primary care doctor next week. Return to the emergency room with any new or worsening symptoms. Case discussed with Dr. George - Lab Data Result diagrams: 02/17/21 16:22 02/17/21 16:22 Lab Results 02/17/21 02/17/21 02/17/21 Range/Units 15:41 16:22 16:22 WBC 11.4 H (3.8-10.6) k/uL RBC 4.42 (3.80-5.40) m/uL Hgb 11.8 (11.4-16.0) gm/dL Hct 38.2 (34.0-46.0) % MCV 86.3 (80.0-100.0) fL MCH 26.6 (25.0-35.0) pg MCHC 30.9 L (31.0-37.0) g/dL RDW 16.9 H (11.5-15.5) % Plt Count 559 H (150-450) k/uL MPV 7.4 Neutrophils % 71 % Lymphocytes % 22 % Monocytes % 4 % Eosinophils % 1 % Basophils % 1 % Neutrophils # 8.1 H (1.3-7.7) k/uL Lymphocytes # 2.5 (1.0-4.8) k/uL Monocytes # 0.4 (0-1.0) k/uL Eosinophils # 0.1 (0-0.7) k/uL Basophils # 0.1 (0-0.2) k/uL Anisocytosis Slight PT 11.3 (9.0-12.0) sec INR 1.1 (<1.2) APTT 22.3 (22.0-30.0) sec D-Dimer 0.67 H (<0.60) mg/L FEU Sodium (137-145) mmol/L Potassium (3.5-5.1) mmol/L Chloride (98-107) mmol/L Carbon Dioxide (22-30) mmol/L Anion Gap mmol/L BUN (7-17) mg/dL Creatinine (0.52-1.04) mg/dL Est GFR (CKD-EPI)AfAm (>60 ml/min/1.73 sqM) Est GFR (CKD-EPI)NonAf (>60 ml/min/1.73 sqM) Glucose (74-99) mg/dL Lactic Ac Sepsis Rflx Plasma Lactic Acid Travon (0.7-2.0) mmol/L Calcium (8.4-10.2) mg/dL Magnesium (1.6-2.3) mg/dL Total Bilirubin (0.2-1.3) mg/dL AST (14-36) U/L ALT (4-34) U/L Alkaline Phosphatase (38-126) U/L Troponin I (0.000-0.034) ng/mL Total Protein (6.3-8.2) g/dL Albumin (3.5-5.0) g/dL Coronavirus (PCR) (Not Detectd) 02/17/21 02/17/21 02/17/21 Range/Units 16:22 16:22 16:22 WBC (3.8-10.6) k/uL RBC (3.80-5.40) m/uL Hgb (11.4-16.0) gm/dL Hct (34.0-46.0) % MCV (80.0-100.0) fL MCH (25.0-35.0) pg MCHC (31.0-37.0) g/dL RDW (11.5-15.5) % Plt Count (150-450) k/uL MPV Neutrophils % % Lymphocytes % % Monocytes % % Eosinophils % % Basophils % % Neutrophils # (1.3-7.7) k/uL Lymphocytes # (1.0-4.8) k/uL Monocytes # (0-1.0) k/uL Eosinophils # (0-0.7) k/uL Basophils # (0-0.2) k/uL Anisocytosis PT (9.0-12.0) sec INR (<1.2) APTT (22.0-30.0) sec D-Dimer (<0.60) mg/L FEU Sodium 133 L (137-145) mmol/L Potassium 5.8 H (3.5-5.1) mmol/L Chloride 104 (98-107) mmol/L Carbon Dioxide 19 L (22-30) mmol/L Anion Gap 10 mmol/L BUN 26 H (7-17) mg/dL Creatinine 1.09 H (0.52-1.04) mg/dL Est GFR (CKD-EPI)AfAm 70 (>60 ml/min/1.73 sqM) Est GFR (CKD-EPI)NonAf 61 (>60 ml/min/1.73 sqM) Glucose 244 H (74-99) mg/dL Lactic Ac Sepsis Rflx Plasma Lactic Acid Travon 2.4 H* (0.7-2.0) mmol/L Calcium 9.3 (8.4-10.2) mg/dL Magnesium 1.3 L (1.6-2.3) mg/dL Total Bilirubin 0.3 (0.2-1.3) mg/dL AST 51 H (14-36) U/L ALT 33 (4-34) U/L Alkaline Phosphatase 87 (38-126) U/L Troponin I <0.012 (0.000-0.034) ng/mL Total Protein 7.1 (6.3-8.2) g/dL Albumin 4.0 (3.5-5.0) g/dL Coronavirus (PCR) (Not Detectd) 02/17/21 02/17/21 Range/Units 16:44 Unknown WBC (3.8-10.6) k/uL RBC (3.80-5.40) m/uL Hgb (11.4-16.0) gm/dL Hct (34.0-46.0) % MCV (80.0-100.0) fL MCH (25.0-35.0) pg MCHC (31.0-37.0) g/dL RDW (11.5-15.5) % Plt Count (150-450) k/uL MPV Neutrophils % % Lymphocytes % % Monocytes % % Eosinophils % % Basophils % % Neutrophils # (1.3-7.7) k/uL Lymphocytes # (1.0-4.8) k/uL Monocytes # (0-1.0) k/uL Eosinophils # (0-0.7) k/uL Basophils # (0-0.2) k/uL Anisocytosis PT (9.0-12.0) sec INR (<1.2) APTT (22.0-30.0) sec D-Dimer (<0.60) mg/L FEU Sodium (137-145) mmol/L Potassium (3.5-5.1) mmol/L Chloride (98-107) mmol/L Carbon Dioxide (22-30) mmol/L Anion Gap mmol/L BUN (7-17) mg/dL Creatinine (0.52-1.04) mg/dL Est GFR (CKD-EPI)AfAm (>60 ml/min/1.73 sqM) Est GFR (CKD-EPI)NonAf (>60 ml/min/1.73 sqM) Glucose (74-99) mg/dL Lactic Ac Sepsis Rflx Y Plasma Lactic Acid Travon (0.7-2.0) mmol/L Calcium (8.4-10.2) mg/dL Magnesium (1.6-2.3) mg/dL Total Bilirubin (0.2-1.3) mg/dL AST (14-36) U/L ALT (4-34) U/L Alkaline Phosphatase (38-126) U/L Troponin I (0.000-0.034) ng/mL Total Protein (6.3-8.2) g/dL Albumin (3.5-5.0) g/dL Coronavirus (PCR) Not Detected (Not Detectd) - EKG Data EKG shows normal: sinus rhythm (Ventricular rate 77, CA interval 0.152, QRS 0.76, QTC 0.391) Disposition Clinical Impression: Sinusitis, Lactic acidosis, Hyperkalemia Disposition: HOME SELF-CARE Condition: Good Instructions (If sedation given, give patient instructions): Sinusitis (ED) Additional Instructions: Take medication as prescribed and follow-up with your primary care doctor next week. Return to the emergency room with any new or worsening symptoms. Prescriptions: Amoxicillin/Potassium Clav [Augmentin 875-125 Tablet] 1 tab PO Q12HR 7 Days #14 tab Is patient prescribed a controlled substance at d/c from ED?: No Referrals: Guillermo Cerda MD [Primary Care Provider] - 1-2 days Time of Disposition: 19:00
--- NOTE | 2021-02-17 15:56 | XR ---
EXAMINATION TYPE: XR chest 2V DATE OF EXAM: 02/17/2021 COMPARISON: 10/31/2019 HISTORY: 50 year-old female shortness of breath, cough, difficulty breathing TECHNIQUE: PA and lateral views FINDINGS: Heart is borderline in size. Median sternotomy wires are present. Aorta and pulmonary vasculature wit hin normal limits. Some strandy atelectasis at the left base. No consolidation or pleural effusion se en. IMPRESSION: Borderline heart size. No acute process seen at this time.
[2021-02-17 16:31] LABS: Anisocytosis Slight; Basophils # (A) 0.1 k/uL (0-0.2); Basophils % (A) 1 %; Eosinophils # (A) 0.1 k/uL (0-0.7); Eosinophils % (A) 1 %; HCT 38.2 % (34.0-46.0); HGB 11.8 gm/dL (11.4-16.0); Lymphocytes # (A) 2.5 k/uL (1.0-4.8); Lymphocytes % (A) 22 %; MCH 26.6 pg (25.0-35.0); MCHC 30.9 g/dL (31.0-37.0); MCV 86.3 fL (80.0-100.0); Mean Platelet Volume 7.4; Monocytes # (A) 0.4 k/uL (0-1.0); Monocytes % (A) 4 %; Neutrophils # (A) 8.1 k/uL (1.3-7.7); Neutrophils % (A) 71 %; Platelet Count 559 k/uL (150-450); RBC 4.42 m/uL (3.80-5.40); RDW 16.9 % (11.5-15.5); WBC 11.4 k/uL (3.8-10.6)
[2021-02-17 16:38] LABS: Calcium 9.3 mg/dL (8.4-10.2); Magnesium 1.3 mg/dL (1.6-2.3); Potassium 5.8 mmol/L (3.5-5.1); Total Bilirubin 0.3 mg/dL (0.2-1.3); Total Protein 7.1 g/dL (6.3-8.2)
[2021-02-17 16:59] LABS: INR 1.1 (<1.2); Partial Thromboplastin Time 22.3 sec (22.0-30.0); Prothrombin Time 11.3 sec (9.0-12.0)
[2021-02-17] MEDS ORDERED: MAGNESIUM SULFATE-D5W PMX 1 GM in DEXTROSE/WATER 1 100ML.BAG IVPB ONE (17:07)
[2021-02-17] MEDS ORDERED: MORPHINE SULFATE 2 MG/ML SYRINGE IVP ONE (17:10)
--- NOTE | 2021-02-17 18:20 | CT ---
EXAMINATION TYPE: CT chest angio for PE DATE OF EXAM: 02/17/2021 COMPARISON: 02/04/2019 HISTORY: Cough, weakness, elevated d-dimer. CT DLP: 567.3 mGycm Automated exposure control for dose reduction was used. CONTRAST: Performed with IV Contrast, patient injected with 100 mL of Isovue 370. There are 3-D post processed images. The lungs are clear of infiltrate. There is no evidence of a pulmonary mass. There is no pleural effu randolph or pneumothorax. Heart size is fairly normal. There is no pericardial effusion. There is no mediastinal adenopathy. Th ere are no hilar masses. Thoracic aorta is intact. There is no aneurysm or dissection. The ascending aorta measures 2.8 cm. There is no evidence of filling defect in the pulmonary arteries. There is sub optimal contrast density in the pulmonary arteries. Thoracic spine is intact. Sternum is intact. Upper abdominal soft tissues are intact. IMPRESSION: Negative CT angiogram of the chest. No evidence of pulmonary embolism. No adverse change compared to old exam.
[2021-02-17] MEDS ORDERED: ACET/COD 300 MG/30 MG STARTER PACK 6 TAB BTL PO STA (19:47)
[2021-02-17 19:49] VITALS: BP 124/71; PULSE 88; RESP 20; TEMP 98.6
== END 2021-02-17 19:53 | disposition home or self-care (01) ==
LOC: EC 10:55
DX: J32.9 Chronic sinusitis, unspecified (principal); E87.5 Hyperkalemia; E78.5 Hyperlipidemia, unspecified; E11.9 Type 2 diabetes mellitus without complications; F17.200 Nicotine dependence, unspecified, uncomplicated; Z88.8 Allergy status to other drugs, medicaments and biological substances; Z79.899 Other long term (current) drug therapy; Z79.84 Long term (current) use of oral hypoglycemic drugs; Z20.822 Contact with and (suspected) exposure to COVID-19; Z79.4 Long term (current) use of insulin
CPT/HCPCS: 36415; 93005; 85379; 80053; 83605; 83735; 84484; 85025; 85610; 85730; 87635; 71046; 71275; 99285; 96374; J2270; J3475; Q9967

== ENCOUNTER 2021-03-03 13:58 | Inpatient (IN) | payer MEDICARE ==
[2021-03-03] MEDS ORDERED: ASPIRIN 81 MG PO STA (14:09)
[2021-03-03] MEDS ORDERED: MORPHINE SULFATE 4 MG/ML SYRINGE IVP STA (14:21)
[2021-03-03 14:32] LABS: Anisocytosis Slight; Basophils % (A) 0 %; Eosinophils # (A) 0.2 k/uL (0-0.7); Eosinophils % (A) 3 %; HCT 36.6 % (34.0-46.0); HGB 11.8 gm/dL (11.4-16.0); Lymphocytes # (A) 1.3 k/uL (1.0-4.8); Lymphocytes % (A) 16 %; MCH 27.7 pg (25.0-35.0); MCHC 32.2 g/dL (31.0-37.0); MCV 86.1 fL (80.0-100.0); Mean Platelet Volume 7.6; Monocytes # (A) 0.3 k/uL (0-1.0); Monocytes % (A) 4 %; Neutrophils # (A) 5.9 k/uL (1.3-7.7); Neutrophils % (A) 75 %; Platelet Count 628 k/uL (150-450); RBC 4.25 m/uL (3.80-5.40); RDW 16.9 % (11.5-15.5); WBC 7.8 k/uL (3.8-10.6)
[2021-03-03 14:48] LABS: Albumin 3.7 g/dL (3.5-5.0); Calcium 9.1 mg/dL (8.4-10.2); Magnesium 1.6 mg/dL (1.6-2.3); Potassium 5.9 mmol/L (3.5-5.1); Total Bilirubin 0.3 mg/dL (0.2-1.3); Total Protein 6.9 g/dL (6.3-8.2)
[2021-03-03 14:55] LABS: Partial Thromboplastin Time 22.1 sec (22.0-30.0); Prothrombin Time 10.3 sec (9.0-12.0)
--- NOTE | 2021-03-03 15:14 | CT ---
Right side EXAMINATION TYPE: CT angio thor/abd pel aorta DATE OF EXAM: 03/03/2021 COMPARISON: Chest 02/17/2021 and abdomen pelvis 09/24/2020 HISTORY: 50-year-old female generalized pain with radiation into the back. TECHNIQUE: Contiguous axial scanning of the chest, abdomen, and pelvis performed without and with IV Contrast, patient injected with 100 mL of Isovue 370. Coronal/sagittal MIP reconstructions performed. 3-D reconstructions generated on a dedicated workstation. CT DLP: 2967.8 mGycm Automated exposure control for dose reduction was used. FINDINGS: CHEST: Heart normal size without pericardial effusion. Aorta normal caliber with conventional branching anatomy. No aneurysm or dissection. Initial noncontr ast images show no evidence for acute hematoma. No thoracic lymph adenopathy by CT size criteria. Motion artifacts. Strandy areas of atelectasis in the lungs. 8 mm peripheral right lower lobe pulmonary nodule, axial image 51. Slightly larger compared to the CT of 04/29/2019 where it measured 6 mm. Additional 6 month follow-up can be performed. No consolidation or pleural effusion. ABDOMEN: A liver is enlarged measuring 21.7 cm with low attenuation compatible with fatty infiltration. Portal venous system is patent. No biliary ductal dilatation. Gallbladder, adrenal glands, kidneys and bilateral renal contours, spleen with mottled early arterial phase enhancement, and pancreas show no gross abnormality. The mild circumferential wall thickening involving the duodenum. A few prominent adjacent lymph nodes measuring up to 8 mm No dilated small bowel, free fluid, free air. Mild stool burden. Mild sigmoid diverticulosis. No pericolonic inflammatory change. PELVIS: Bladder partially distended. Patulous bilateral canals. Uterus is anteverted. Tubal ligation clips. B oth ovaries are visualized. No abnormal fluid collection in the pelvis or pelvic lymphadenopathy. BONES: Facet arthropathy lower lumbar spine. Osseous structure process. IMPRESSION: 1. NO EVIDENCE FOR AORTIC DISSECTION, ACUTE INTRAMURAL HEMATOMA, ANEURYSM, OR OTHER ACUTE AORTIC INJU RY. 2. AN 8 MM RIGHT LOWER LOBE PULMONARY NODULE IS MINIMALLY LARGER COMPARED TO 04/29/2019 WHERE IT MEASU RED 6 MM. THIS CAN CONTINUE TO BE REASSESSED AT A SIX-MONTH FOLLOW-UP. 3. HEPATOMEGALY (21.7 CM) WITH AT LEAST MODERATE HEPATIC STEATOSIS. 4. MILD CIRCUMFERENTIAL WALL THICKENING OF THE DUODENUM. CORRELATE FOR ANY SYMPTOMS OF DUODENITIS OR PEPTIC ULCER DISEASE.
[2021-03-03] MEDS ORDERED: FAMOTIDINE 20 MG/2 ML VIAL IV STA (15:21)
[2021-03-03] MEDS ORDERED: LIDOCAINE VISCOUS 2% 15 ML CUP MUCOUS MEM STA (15:21)
[2021-03-03] MEDS ORDERED: ONDANSETRON 4 MG/2 ML VIAL IVP STA (15:21)
[2021-03-03] MEDS ORDERED: diphenhydrAMINE 50 MG/ML 1 ML VIAL IVP STA (15:21)
[2021-03-03] MEDS ORDERED: SODIUM BICARB 8.4% 50 ML SYR (1 MEQ/ML) IV ONE (15:23)
[2021-03-03] MEDS ORDERED: ALBUTEROL NEB (CONC) 2.5 MG/0.5 ML INHALATION ONE (15:23)
[2021-03-03] MEDS ORDERED: SODIUM POLYSTYRENE SULFONATE 15 GM/60 ML BOTTLE PO ONE (15:23)
[2021-03-03] MEDS ORDERED: INSULIN REGULAR 100 UNIT/ML VIAL (IV) IV ONE ×2 (15:23→23:00)
[2021-03-03] MEDS ORDERED: SODIUM CHLORIDE 0.9% 1,000 ML IV STA (16:07)
[2021-03-03] MEDS ORDERED: NALOXONE 0.4 MG/ML 1 ML VIAL IV PRN (16:38)
[2021-03-03] MEDS ORDERED: INSULIN ASPART (NovoLOG) 100 UNIT/ML VIAL SQ ONE (16:41)
--- NOTE | 2021-03-03 16:57 | ED ---
General Adult HPI - General Chief complaint: Chest Pain Stated complaint: chest pain Time Seen by Provider: 03/03/21 14:09 Source: patient, RN notes reviewed, old records reviewed Mode of arrival: EMS Limitations: no limitations - History of Present Illness Initial comments: Patient is a 50-year-old female with past medical history remarkable for diabet es, pancreatitis, chronic low back pain, recurrent hyperkalemia who presents emergency Department complaining of epigastric abdominal pain that is midline and radiates down her entire abdomen with radiation towards her entire back. She denies any nausea, vomiting. Denies any shortness of breath. Denies any urinary complaints or diarrhea or constipation. She is does state that the pain does radiate somewhat into her legs. States she still able to ambulate. Denies any fevers, chills, sick contacts. She has no other acute complaints at this time. Patient presents over concern for the pain. She is otherwise pain as a sharp, achy sensation. - Related Data Home Medications Medication Instructions Recorded Confirmed Atorvastatin [Lipitor] 80 mg PO DAILY 06/25/19 03/03/21 INSULIN ASPART (NovoLOG) [NovoLOG 18 unit SQ TID-W/MEALS 06/25/19 03/03/21 (formulary)] lisinopriL 40 mg PO DAILY 09/24/20 03/03/21 metFORMIN HCL [Glucophage] 500 mg PO DAILY 09/24/20 03/03/21 traZODone HCL 50 - 100 mg PO HS PRN 01/11/21 03/03/21 Insulin Detemir (Levemir) [Levemir] 20 unit SQ DAILY 02/17/21 03/03/21 Amoxicillin/Potassium Clav 1 tab PO BID 03/03/21 03/03/21 [Augmentin 875-125 Tablet] Ergocalciferol (Vitamin D2) 1,250 mcg PO TU 03/03/21 03/03/21 [Drisdol (50,000 Iu)] Naproxen 500 mg PO BID 03/03/21 03/03/21 traMADol HCL 50 mg PO Q6H PRN 03/03/21 03/03/21 Previous Rx's Medication Instructions Recorded Fenofibrate [Lofibra] 160 mg PO DAILY #30 tab 03/23/19 Allergies Allergy/AdvReac Type Severity Reaction Status Date / Time levofloxacin [From Levaquin] Allergy Unknown Verified 03/03/21 16:40 Review of Systems ROS Statement: Those systems with pertinent positive or pertinent negative responses have been documented in the HPI. Review of Systems: CONST: Denies fever EYES: Denies blurry vision ENT: Denies nasal congestion C/V: Endorse's chest pain RESP: Denies shortness of breath GI: Endorses abdominal pain : Denies dysuria SKIN: Denies rash. MSK: Denies joint pain. NEURO: Denies headache ROS Other: All systems not noted in ROS Statement are negative. Past Medical History Past Medical History: Diabetes Mellitus, GERD/Reflux, Hyperlipidemia, Syncope Additional Past Medical History / Comment(s): Pancreatitis twice, NIDDM type II, UTI, chronic low back pain, bulging discs, dental abscesses in past. History of Any Multi-Drug Resistant Organisms: None Reported Past Surgical History: Tubal Ligation Additional Past Surgical History / Comment(s): Age 7 had VSD repair Past Anesthesia/Blood Transfusion Reactions: No Reported Reaction Past Psychological History: No Psychological Hx Reported Smoking Status: Current every day smoker Past Alcohol Use History: None Reported Past Drug Use History: None Reported - Past Family History Mother Family Medical History: No Reported History Additional Family Medical History / Comment(s): Mother was healthy. She is , pt cannot recall cause of . Father Family Medical History: Pneumonia Additional Family Medical History / Comment(s): Father at the age of 67yrs from pneumonia General Exam - General Exam Comments Initial Comments: General: Appears in no acute distress. HEAD: Normal with no signs of head trauma. EYES: PERRLA, EOMI, conjunctiva normal, no discharge. ENT: Hearing grossly intact, normal oropharynx. RESPIRATORY: Clear breath sounds bilaterally. No wheezes, rales, or rhonchi. C/V: Regular rate and rhythm. S1 and S2 auscultated, no edema, peripheral pulses 2+ and intact throughout. Pulses are symmetrical throughout. ABD: Abd is soft, nontender, nondistended. There is no obvious tenderness to palpation. EXT: Normal range of motion, no obvious deformity SKIN: No rashes or lesions observed on exposed skin. NEURO: Alert and oriented 4. No focal deficits. Limitations: no limitations Course Vital Signs 03/03/21 03/03/21 14:02 18:20 Temperature 99 F Pulse Rate 76 81 Respiratory 20 18 Rate Blood Pressure 144/61 O2 Sat by Pulse 97 Oximetry Medical Decision Making - Medical Decision Making Based on the patient's presentation and physical exam, I'm concerned for possible aortic catastrophe and the patient with her complaining of 10 out of 10 epigastric abdominal pain with radiation to the back that radiates throughout the abdomen and radiation into her legs. Therefore we will obtain a cardiac workup, abdominal laboratory studies, as well as CT angiogram of the chest abdomen pelvis. Patient was in agreement this plan. She'll be administered IV morphine for pain control. Patient's EKG shows no signs of acute ischemia and no signs of acute hyperkalemia. CT angiograms revealed no evidence of aortic dissection or aneurysm. There is an old pulmonary nodule present. There is moderate hepatic steatosis. There is possible duodenitis or peptic ulcer disease. Laboratory studies are remarkable for a negative troponin, acute hyperkalemia 5.9, acute hyponatremia of 131. Patient is a mild [place] eye with a creatinine of 1.22. She is hyperglycemic without evidence of DKA. Urinalysis is still pending at this time. Covid swab is negative. On reevaluation, patient was given an aspirin. States her pain is resolved. She does state now she has left knee pain which is chronic and is requesting an x-ray was she will be obtained. X-ray showed no acute injury. I explained that due to her hyperkalemia would like to admitted to the hospital. She was in agreement this plan. Patient was started on IV fluids, was administered IV insulin, albuterol, Kayexalate to shift and excrete the patient's potassium. Patient was in agreement with the admission. I spoke with the admitting team under Dr. Jolly accepted the patient. Patient was admitted to observation telemetry in serious condition. - Lab Data Result diagrams: 03/03/21 14:12 03/03/21 14:12 Lab Results 03/03/21 03/03/21 03/03/21 Range/Units 14:12 14:12 14:12 WBC 7.8 (3.8-10.6) k/uL RBC 4.25 (3.80-5.40) m/uL Hgb 11.8 (11.4-16.0) gm/dL Hct 36.6 (34.0-46.0) % MCV 86.1 (80.0-100.0) fL MCH 27.7 (25.0-35.0) pg MCHC 32.2 (31.0-37.0) g/dL RDW 16.9 H (11.5-15.5) % Plt Count 628 H (150-450) k/uL MPV 7.6 Neutrophils % 75 % Lymphocytes % 16 % Monocytes % 4 % Eosinophils % 3 % Basophils % 0 % Neutrophils # 5.9 (1.3-7.7) k/uL Lymphocytes # 1.3 (1.0-4.8) k/uL Monocytes # 0.3 (0-1.0) k/uL Eosinophils # 0.2 (0-0.7) k/uL Basophils # 0.0 (0-0.2) k/uL Anisocytosis Slight PT 10.3 (9.0-12.0) sec INR 1.0 (<1.2) APTT 22.1 (22.0-30.0) sec Sodium 131 L (137-145) mmol/L Potassium 5.9 H (3.5-5.1) mmol/L Chloride 101 (98-107) mmol/L Carbon Dioxide 18 L (22-30) mmol/L Anion Gap 12 mmol/L BUN 38 H (7-17) mg/dL Creatinine 1.22 H (0.52-1.04) mg/dL Est GFR (CKD-EPI)AfAm 61 (>60 ml/min/1.73 sqM) Est GFR (CKD-EPI)NonAf 53 (>60 ml/min/1.73 sqM) Glucose 469 H (74-99) mg/dL Calcium 9.1 (8.4-10.2) mg/dL Magnesium 1.6 (1.6-2.3) mg/dL Total Bilirubin 0.3 (0.2-1.3) mg/dL AST 82 H (14-36) U/L ALT 36 H (4-34) U/L Alkaline Phosphatase 102 (38-126) U/L Troponin I (0.000-0.034) ng/mL Total Protein 6.9 (6.3-8.2) g/dL Albumin 3.7 (3.5-5.0) g/dL 03/03/21 Range/Units 14:12 WBC (3.8-10.6) k/uL RBC (3.80-5.40) m/uL Hgb (11.4-16.0) gm/dL Hct (34.0-46.0) % MCV (80.0-100.0) fL MCH (25.0-35.0) pg MCHC (31.0-37.0) g/dL RDW (11.5-15.5) % Plt Count (150-450) k/uL MPV Neutrophils % % Lymphocytes % % Monocytes % % Eosinophils % % Basophils % % Neutrophils # (1.3-7.7) k/uL Lymphocytes # (1.0-4.8) k/uL Monocytes # (0-1.0) k/uL Eosinophils # (0-0.7) k/uL Basophils # (0-0.2) k/uL Anisocytosis PT (9.0-12.0) sec INR (<1.2) APTT (22.0-30.0) sec Sodium (137-145) mmol/L Potassium (3.5-5.1) mmol/L Chloride (98-107) mmol/L Carbon Dioxide (22-30) mmol/L Anion Gap mmol/L BUN (7-17) mg/dL Creatinine (0.52-1.04) mg/dL Est GFR (CKD-EPI)AfAm (>60 ml/min/1.73 sqM) Est GFR (CKD-EPI)NonAf (>60 ml/min/1.73 sqM) Glucose (74-99) mg/dL Calcium (8.4-10.2) mg/dL Magnesium (1.6-2.3) mg/dL Total Bilirubin (0.2-1.3) mg/dL AST (14-36) U/L ALT (4-34) U/L Alkaline Phosphatase (38-126) U/L Troponin I <0.012 (0.000-0.034) ng/mL Total Protein (6.3-8.2) g/dL Albumin (3.5-5.0) g/dL - EKG Data -: EKG Interpreted by Me EKG Comments: 12-lead Electrocardiogram Interpretation Note EKG was reviewed and interpreted by myself. 12-lead ECG performed at 1412 is interpreted by me as revealing normal sinus rhythm at a rate of 75 beats per minute. Renick is normal. UT interval is 142 ms, QRS duration is 80 ms, QTc is 404 ms.. There were no ST or T wave abnormalities to suggest myocardial ischemia or injury. R wave progression across the precordium was satisfactory. By my interpretation this EKG is non-diagnostic for acute ischemia. There is no sign of acute hyperkalemic changes. Disposition Clinical Impression: Hyperkalemia, JOE (acute kidney injury), Abdominal pain of unknown cause, Chronic knee pain Disposition: ADMITTED IP TO THIS HOSP Condition: Serious
[2021-03-03] MEDS ORDERED: INSULIN ASPART (NovoLOG) 100 UNIT/ML VIAL SQ SCH (17:30)
[2021-03-03] MEDS: DEXTROSE 50% SYRINGE 50 ML IVP ONE ×2 (18:05→18:07)
--- NOTE | 2021-03-03 18:06 | XR ---
EXAMINATION TYPE: XR knee limited LT DATE OF EXAM: 03/03/2021 COMPARISON: NONE HISTORY: Left knee pain TECHNIQUE: 2 views FINDINGS: There is hypertrophic spurring of the femoral and tibial condyles. There is narrowing of th e medial joint space. There is spurring on the patella. There is narrowing of patellofemoral joint sp deuce. There is no joint effusion. IMPRESSION: Moderate hypertrophic osteoarthritis. No fracture.
[2021-03-03] MEDS: SODIUM CHLORIDE 0.9% 1,000 ML IV SCH (18:11)
[2021-03-03 18:57] LABS: Glucose,Whole Blood 150 mg/dL (75-99)
[2021-03-03] MEDS: MORPHINE SULFATE 4 MG/ML SYRINGE IV PRN (19:38)
[2021-03-03 20:26] LABS: Glucose,Whole Blood 145 mg/dL (75-99)
[2021-03-03] MEDS: INSULIN ASPART (NovoLOG) 100 UNIT/ML VIAL SQ SCH (20:29)
[2021-03-03] MEDS ORDERED: DEXTROSE 50% SYRINGE 50 ML IVP STA (22:50)
[2021-03-03 23:09] LABS: Glucose,Whole Blood 277 mg/dL (75-99)
[2021-03-03 23:56] LABS: Glucose,Whole Blood 291 mg/dL (75-99)
[2021-03-04] MEDS: INSULIN ASPART (NovoLOG) 100 UNIT/ML VIAL SQ SCH ×8 (00:02→20:40)
[2021-03-04 01:46] LABS: Glucose,Whole Blood 173 mg/dL (75-99)
[2021-03-04] MEDS: MORPHINE SULFATE 4 MG/ML SYRINGE IV PRN ×5 (01:50→22:04)
[2021-03-04] MEDS: SODIUM CHLORIDE 0.9% 1,000 ML IV SCH ×3 (01:52→17:51)
[2021-03-04 07:23] LABS: Glucose,Whole Blood 183 mg/dL (75-99)
[2021-03-04] MEDS: FENOFIBRATE 160 MG TAB PO SCH (08:44)
[2021-03-04] MEDS: ATORVASTATIN 80 MG TAB PO SCH (08:44)
[2021-03-04] MEDS: INSULIN DETEMIR (LEVEMIR) 100 UNIT/ML SYR SQ SCH (08:44)
[2021-03-04 11:14] LABS: Appearance,Urine Clear (Clear); Bilirubin,Urine Negative (Negative); Blood,Urine Negative (Negative); Color,Urine Light Yellow; Glucose,Urine (UA) 4+ (Negative); Ketones,Urine Negative (Negative); Leukocyte Esterase,Urine Negative (Negative); Nitrite,Urine Negative (Negative); PH, Urine 5.5 (5.0-8.0); Protein,Urine Negative (Negative); Specific Gravity,Urine 1.015 (1.001-1.035); Urobilinogen,Urine <2.0 mg/dL (<2.0)
[2021-03-04 11:29] LABS: Basophils # (A) 0.04 X 10*3/uL (0.00-0.10); Basophils % (A) 0.6 %; Eosinophils # (A) 0.18 X 10*3/uL (0.04-0.35); Eosinophils % (A) 2.9 %; HCT 33.2 % (37.2-46.3); Lymphocytes % (A) 35.3 %; MCH 26.4 pg (27.0-32.0); MCHC 30.1 g/dL (32.0-37.0); MCV 87.6 fL (80.0-97.0); Mean Platelet Volume 9.3 fL (9.5-12.2); Monocytes # (A) 0.44 X 10*3/uL (0.20-1.00); Monocytes % (A) 7.1 %; Neutrophils # (A) 3.36 X 10*3/uL (1.80-7.70); Neutrophils % (A) 53.8 %; Platelet Count 507 X 10*3/uL (140-440); RBC 3.79 X 10*6/uL (4.10-5.20); RDW 17.6 % (11.5-14.5); WBC 6.24 X 10*3/uL (4.50-10.00)
[2021-03-04 12:15] LABS: Glucose,Whole Blood 367 mg/dL (75-99)
[2021-03-04 13:07] LABS: African American GFR (CKD) 74.4 (60.0-200.0); Anion Gap 11.5 mmol/L (10.00-18.00); BUN/Creat Ratio 28.83 Ratio (12.00-20.00); Blood Urea Nitrogen 29.7 mg/dL (9.0-27.0); Calcium 8.8 mg/dL (8.7-10.3); Carbon Dioxide 21.4 mmol/L (20.0-27.5); Non-African American GFR(CKD) 64.2 (60.0-200.0); Potassium 5.7 mmol/L (3.5-5.5)
[2021-03-04] MEDS ORDERED: SODIUM ZIRCONIUM CYCLOSILICATE 10 GM PACKET PO ONE (15:05)
[2021-03-04] MEDS: metFORMIN 500 MG TAB PO SCH (16:24)
[2021-03-04 17:02] LABS: Glucose,Whole Blood 324 mg/dL (75-99)
--- NOTE | 2021-03-04 18:26 | P.HPIM ---
History of Present Illness H&P Date: 03/03/21 Chief Complaint: Chest pain 50-year-old female with past medical history remarkable for diabetes, pancreatitis, chronic low back pain, recurrent hyperkalemia who presents [facility] Department complaining of epigastric abdominal pain that is midline and radiates down her entire abdomen with radiation towards her entire back. She denies any nausea, vomiting. Denies any shortness of breath. Denies any urinary complaints or diarrhea or constipation. She is does state that the pain does radiate somewhat into her legs. States she still able to ambulate. Denies any fevers, chills, sick contacts. She has no other acute complaints at this time. Patient presents over concern for the pain. She is otherwise pain as a sharp, achy sensation. EKG shows no signs of acute ischemia and no signs of acute hyperkalemia. CT angiograms revealed no evidence of aortic dissection or aneurysm. There is an old pulmonary nodule present. There is moderate hepatic steatosis. There is possible duodenitis or peptic ulcer disease. Laboratory studies are remarkable for a negative troponin, acute hyperkalemia 5.9, acute hyponatremia of 131. Patient is a mild AK eye with a creatinine of 1.22. She is hyperglycemic without evidence of DKA. Urinalysis is still pending at this time. Covid swab is negative. Review of Systems REVIEW OF SYSTEMS: CONSTITUTIONAL: No fever, no malaise, no fatigue. HEENT: No recent visual problems or hearing problems. Denied any sore throat. CARDIOVASCULAR: No chest pain, orthopnea, PND, no palpitations, no syncope. PULMONARY: No shortness of breath, no cough, no hemoptysis. GASTROINTESTINAL: No diarrhea, no nausea, no vomiting, no abdominal pain. NEUROLOGICAL: No headaches, no weakness, no numbness. HEMATOLOGICAL: Denies any bleeding or petechiae. GENITOURINARY: Denies any burning micturition, frequency, or urgency. MUSCULOSKELETAL/RHEUMATOLOGICAL: Denies any joint pain, swelling, or any muscle pain. ENDOCRINE: Denies any polyuria or polydipsia. The rest of the 14-point review of systems is negative. Past Medical History Past Medical History: Diabetes Mellitus, GERD/Reflux, Hyperlipidemia, Syncope Additional Past Medical History / Comment(s): Pancreatitis twice, NIDDM type II, UTI, chronic low back pain, bulging discs, dental abscesses in past. History of Any Multi-Drug Resistant Organisms: None Reported Past Surgical History: Tubal Ligation Additional Past Surgical History / Comment(s): Age 7 had VSD repair Past Anesthesia/Blood Transfusion Reactions: No Reported Reaction Past Psychological History: No Psychological Hx Reported Smoking Status: Current every day smoker Past Alcohol Use History: None Reported Past Drug Use History: None Reported - Past Family History Mother Family Medical History: No Reported History Additional Family Medical History / Comment(s): Mother was healthy. She is dec eased, pt cannot recall cause of . Father Family Medical History: Pneumonia Additional Family Medical History / Comment(s): Father at the age of 67yrs from pneumonia Medications and Allergies Home Medications Medication Instructions Recorded Confirmed Type Fenofibrate [Lofibra] 160 mg PO DAILY #30 tab 03/23/19 03/03/21 Rx Atorvastatin [Lipitor] 80 mg PO DAILY 06/25/19 03/03/21 History INSULIN ASPART (NovoLOG) [NovoLOG 18 unit SQ TID-W/MEALS 06/25/19 03/03/21 History (formulary)] lisinopriL 40 mg PO DAILY 09/24/20 03/03/21 History metFORMIN HCL [Glucophage] 500 mg PO DAILY 09/24/20 03/03/21 History traZODone HCL 50 - 100 mg PO HS PRN 01/11/21 03/03/21 History Insulin Detemir (Levemir) [Levemir] 20 unit SQ DAILY 02/17/21 03/03/21 History Amoxicillin/Potassium Clav 1 tab PO BID 03/03/21 03/03/21 History [Augmentin 875-125 Tablet] Ergocalciferol (Vitamin D2) 1,250 mcg PO TU 03/03/21 03/03/21 History [Drisdol (50,000 Iu)] Naproxen 500 mg PO BID 03/03/21 03/03/21 History traMADol HCL 50 mg PO Q6H PRN 03/03/21 03/03/21 History Allergies Allergy/AdvReac Type Severity Reaction Status Date / Time levofloxacin [From Levaquin] Allergy Unknown Verified 03/03/21 16:40 Physical Exam Vitals: Vital Signs Temp Pulse Resp BP Pulse Ox 03/03/21 14:02 99 F 76 20 144/61 97 Intake and Output 03/03/21 03/03/21 03/03/21 06:59 14:59 22:59 Other: Weight 97.069 kg PHYSICAL EXAMINATION: GENERAL: The patient is alert and oriented x3, not in any acute distress. Well developed, well nourished. HEENT: Pupils are round and equally reacting to light. EOMI. No scleral icterus. No conjunctival pallor. Normocephalic, atraumatic. No pharyngeal erythema. No thyromegaly. CARDIOVASCULAR: S1 and S2 present. No murmurs, rubs, or gallops. PULMONARY: Chest is clear to auscultation, no wheezing or crackles. ABDOMEN: Soft, nontender, nondistended, normoactive bowel sounds. No palpable organomegaly. MUSCULOSKELETAL: No joint swelling or deformity. EXTREMITIES: No cyanosis, clubbing, or pedal edema. NEUROLOGICAL: Gross neurological examination did not reveal any focal deficits. SKIN: No rashes. Results CBC & Chem 7: 03/04/21 07:10 03/04/21 07:10 Labs: Abnormal Lab Results - Last 24 Hours (Table) 03/03/21 03/03/21 Range/Units 14:12 14:12 RDW 16.9 H (11.5-15.5) % Plt Count 628 H (150-450) k/uL Sodium 131 L (137-145) mmol/L Potassium 5.9 H (3.5-5.1) mmol/L Carbon Dioxide 18 L (22-30) mmol/L BUN 38 H (7-17) mg/dL Creatinine 1.22 H (0.52-1.04) mg/dL Glucose 469 H (74-99) mg/dL AST 82 H (14-36) U/L ALT 36 H (4-34) U/L Assessment and Plan Assessment: 1. Chest pain; ACS ruled out; patient remains on aspirin and statin therapy 2. Possible duodenitis versus peptic ulcer disease; we will start patient on PPI in form of Protonix 40 mg by mouth twice a day 3. Hyperkalemia; potassium level 5.9 in ED; patient has been placed on IV fluids with close monitoring of electrolytes; we will consult nephrology if potassium level remains elevated 4. Acute renal injury; continue with IV fluids in form of normal saline; monitor strict SEEMA's, daily weights, renal function and electrolytes; avoid nephrotoxins 5. Hyperlipidemia; Lipitor 80 mg by mouth daily at bedtime along with fenofibra te 160 mg daily 6. Diabetes mellitus; continue with home dose of metformin 500 mg daily, Levemir 20 units subcu daily along with NovoLog 5 units subcu 3 times a day with meals; monitor Accu-Cheks every before meals and at bedtime with insulin sliding scale DVT prophylaxis; SCDs CODE STATUS; full code
[2021-03-04 20:32] LABS: Glucose,Whole Blood 326 mg/dL (75-99)
[2021-03-04] MEDS: PANTOPRAZOLE 40 MG/10 ML VIAL IVP SCH (20:40)
[2021-03-05] MEDS: MORPHINE SULFATE 4 MG/ML SYRINGE IV PRN ×2 (04:38→09:44)
[2021-03-05] MEDS: SODIUM CHLORIDE 0.9% 1,000 ML IV SCH (04:40)
[2021-03-05 08:11] LABS: Glucose,Whole Blood 195 mg/dL (75-99)
[2021-03-05] MEDS: ATORVASTATIN 80 MG TAB PO SCH (09:02)
[2021-03-05] MEDS: PANTOPRAZOLE 40 MG/10 ML VIAL IVP SCH ×2 (09:02→20:40)
[2021-03-05] MEDS: FENOFIBRATE 160 MG TAB PO SCH (09:02)
[2021-03-05] MEDS: metFORMIN 500 MG TAB PO SCH ×2 (09:02→18:32)
[2021-03-05] MEDS: INSULIN DETEMIR (LEVEMIR) 100 UNIT/ML SYR SQ SCH (09:02)
[2021-03-05] MEDS: INSULIN ASPART (NovoLOG) 100 UNIT/ML VIAL SQ SCH ×7 (09:03→20:40)
[2021-03-05 09:25] LABS: Basophils # (A) 0.04 X 10*3/uL (0.00-0.10); Basophils % (A) 0.6 %; Eosinophils # (A) 0.18 X 10*3/uL (0.04-0.35); Eosinophils % (A) 2.6 %; HCT 32.6 % (37.2-46.3); HGB 10.2 g/dL (12.0-15.0); Lymphocytes # (A) 2.12 X 10*3/uL (0.90-5.00); Lymphocytes % (A) 30.6 %; MCH 27.7 pg (27.0-32.0); MCHC 31.3 g/dL (32.0-37.0); MCV 88.6 fL (80.0-97.0); Mean Platelet Volume 9.3 fL (9.5-12.2); Monocytes # (A) 0.42 X 10*3/uL (0.20-1.00); Monocytes % (A) 6.1 %; Neutrophils # (A) 4.15 X 10*3/uL (1.80-7.70); Neutrophils % (A) 59.8 %; Platelet Count 515 X 10*3/uL (140-440); RBC 3.68 X 10*6/uL (4.10-5.20); RDW 17.2 % (11.5-14.5); WBC 6.93 X 10*3/uL (4.50-10.00)
--- NOTE | 2021-03-05 10:31 | P.NPCON ---
History of Present Illness - Reason for Consult hyperkalemia - History of Present Illness Reason for consultation: Hyperkalemia History of present illness: The patient is a 50-year-old female seen in renal consultation for hyperkalemia. Patient presented to the hospital with abdominal pain with radiation to her back. She denies any vomiting or diarrhea. Nephrology was consulted due to hyperkalemia. Patient does have long-standing history of diabetes mellitus. Her blood sugars have been running high this admission. On admission her blood glucose was 469. Potassium level was 5.9 on admission and was down to 5.7 yesterday. Morning labs are pending. Patient does use naproxen at home. She was also on lisinopril outpatient. She is not receiving either of those medications in the hospital. Creatinine was 1.2-1 admission and was down to 1.0 yesterday. She was also acidotic on admission wh ich is improved. Bicarb level was 21.4 yesterday. Good urine output. No hematuria. No chest pain or shortness of breath. Vital signs are stable. General: The patient appeared well nourished and normally developed. HEENT: Head exam is unremarkable. LUNGS: Breath sounds decreased. HEART: Rate and Rhythm are regular. ABDOMEN: Soft, no distention. EXTREMITITES: No edema. Past Medical History Past Medical History: Diabetes Mellitus, GERD/Reflux, Hyperlipidemia, Syncope Additional Past Medical History / Comment(s): Pancreatitis twice, NIDDM type II, UTI, chronic low back pain, bulging discs, dental abscesses in past. History of Any Multi-Drug Resistant Organisms: None Reported Past Surgical History: Tubal Ligation Additional Past Surgical History / Comment(s): Age 7 had VSD repair Past Anesthesia/Blood Transfusion Reactions: No Reported Reaction Past Psychological History: No Psychological Hx Reported Smoking Status: Current every day smoker Past Alcohol Use History: None Reported Past Drug Use History: None Reported - Past Family History Mother Family Medical History: No Reported History Additional Family Medical History / Comment(s): Mother was healthy. She is , pt cannot recall cause of . Father Family Medical History: Pneumonia Additional Family Medical History / Comment(s): Father at the age of 67yrs from pneumonia Medications and Allergies Home Medications Medication Instructions Recorded Confirmed Type Fenofibrate [Lofibra] 160 mg PO DAILY #30 tab 03/23/19 03/03/21 Rx Atorvastatin [Lipitor] 80 mg PO DAILY 06/25/19 03/03/21 History INSULIN ASPART (NovoLOG) [NovoLOG 18 unit SQ TID-W/MEALS 06/25/19 03/03/21 History (formulary)] lisinopriL 40 mg PO DAILY 09/24/20 03/03/21 History metFORMIN HCL [Glucophage] 500 mg PO DAILY 09/24/20 03/03/21 History traZODone HCL 50 - 100 mg PO HS PRN 01/11/21 03/03/21 History Insulin Detemir (Levemir) [Levemir] 20 unit SQ DAILY 02/17/21 03/03/21 History Amoxicillin/Potassium Clav 1 tab PO BID 03/03/21 03/03/21 History [Augmentin 875-125 Tablet] Ergocalciferol (Vitamin D2) 1,250 mcg PO TU 03/03/21 03/03/21 History [Drisdol (50,000 Iu)] Naproxen 500 mg PO BID 03/03/21 03/03/21 History traMADol HCL 50 mg PO Q6H PRN 03/03/21 03/03/21 History Allergies Allergy/AdvReac Type Severity Reaction Status Date / Time levofloxacin [From [facility]] Allergy Unknown Verified 03/03/21 16:40 Physical Exam Vitals: Vital Signs Temp Pulse Resp BP Pulse Ox 03/05/21 07:00 98.3 F 60 18 107/58 95 03/05/21 02:00 98.7 F 60 18 110/70 98 03/04/21 19:24 98.2 F 61 18 115/63 96 03/04/21 14:36 98.7 F 65 18 114/58 96 Intake and Output 03/04/21 03/05/21 03/05/21 22:59 06:59 14:59 Intake Total 90 Output Total 0 Balance 90 0 Intake: Oral 90 Output: Emesis 0 Other: # Voids 1 1 # Bowel Movements 0 Results - Lab Results Most recent lab results Calcium 8.8 mg/dL (8.7-10.3) 03/04/21 07:10 Magnesium 1.6 mg/dL (1.6-2.3) 03/03/21 14:12 03/05/21 06:22 03/04/21 07:10 Assessment and Plan Plan: Assessment: 1. Mild acute kidney injury mostly prerenal improved with IV hydration. Creatinine 1.0 as of yesterday. Patient also received IV contrast on March 03 for CTA. 2. Hyperkalemia secondary to acute kidney injury, acidosis as well as hyperglycemia. She was also on NSAIDs and lisinopril outpatient which are both currently held. 3. Diabetes mellitus. 4. Abdominal pain. Improved. No evidence of aortic dissection, aneurysm or hematoma noted on CTA. 5. Benign hypertension. Controlled. 6. Metabolic acidosis secondary to acute kidney injury. Improved. Plan: Decrease rate of normal saline to 50 mL an hour. Tight blood sugar control. Avoid nephrotoxins, including nonsteroidals. Continue to hold lisinopril. Follow-up morning labs. Thank you for the consultation. I will continue to follow the patient with you during her hospital stay.
[2021-03-05 10:47] LABS: African American GFR (CKD) 84.4 (60.0-200.0); Anion Gap 12.5 mmol/L (10.00-18.00); BUN/Creat Ratio 20.04 Ratio (12.00-20.00); Blood Urea Nitrogen 18.6 mg/dL (9.0-27.0); Carbon Dioxide 20.9 mmol/L (20.0-27.5); Non-African American GFR(CKD) 72.9 (60.0-200.0); Potassium 5.3 mmol/L (3.5-5.5)
[2021-03-05 12:59] LABS: Glucose,Whole Blood 278 mg/dL (75-99)
[2021-03-05] MEDS: traMADol 50 MG TAB PO PRN ×2 (14:22→20:41)
[2021-03-05 17:10] LABS: Glucose,Whole Blood 251 mg/dL (75-99)
[2021-03-05 19:58] LABS: Glucose,Whole Blood 254 mg/dL (75-99)
--- NOTE | 2021-03-05 20:24 | P.PN ---
Subjective Progress Note Date: 03/04/21 50-year-old female with past medical history remarkable for diabetes, pancreatitis, chronic low back pain, recurrent hyperkalemia who presents emergency Department complaining of epigastric abdominal pain that is midline and radiates down her entire abdomen with radiation towards her entire back. She denies any nausea, vomiting. Denies any shortness of breath. Denies any urinary complaints or diarrhea or constipation. She is does state that the pain does radiate somewhat into her legs. States she still able to ambulate. Denies any fevers, chills, sick contacts. She has no other acute complaints at this time. Patient presents over concern for the pain. She is otherwise pain as a sharp, achy sensation. EKG shows no signs of acute ischemia and no signs of acute hyperkalemia. CT angiograms revealed no evidence of aortic dissection or aneurysm. There is an old pulmonary nodule present. There is moderate hepatic steatosis. There is possible duodenitis or peptic ulcer disease. Laboratory studies are remarkable for a negative troponin, acute hyperkalemia 5.9, acute hyponatremia of 131. Patient is a mild [place] eye with a creatinine of 1.22. She is hyperglycemic without evidence of DKA. Urinalysis is still pending at this time. Covid swab is negative. Objective - Vital Signs Vital signs: Vital Signs Temp 98.0 F 03/04/21 07:00 Pulse 63 03/04/21 07:00 Resp 18 03/04/21 07:00 BP 110/67 03/04/21 07:00 Pulse Ox 95 03/04/21 07:00 Intake & Output 03/03/21 03/04/21 03/04/21 18:59 06:59 18:59 Intake Total 120 Balance 120 Weight 97.069 kg 97.069 kg Intake: Oral 120 Other: # Voids 1 1 - Exam GENERAL: The patient is alert and oriented x3, not in any acute distress. Well developed, well nourished. HEENT: Pupils are round and equally reacting to light. EOMI. No scleral icterus. No conjunctival pallor. Normocephalic, atraumatic. No pharyngeal erythema. No thyromegaly. CARDIOVASCULAR: S1 and S2 present. No murmurs, rubs, or gallops. PULMONARY: Chest is clear to auscultation, no wheezing or crackles. ABDOMEN: Soft, nontender, nondistended, normoactive bowel sounds. No palpable organomegaly. MUSCULOSKELETAL: No joint swelling or deformity. EXTREMITIES: No cyanosis, clubbing, or pedal edema. NEUROLOGICAL: Gross neurological examination did not reveal any focal deficits. SKIN: No rashes. - Labs CBC & Chem 7: 03/05/21 06:22 03/05/21 06:22 Labs: Abnormal Lab Results - Last 24 Hours (Table) 03/03/21 03/03/21 03/03/21 Range/Units 11:11 14:12 14:12 RBC (4.10-5.20) X 10*6/uL Hgb (12.0-15.0) g/dL Hct (37.2-46.3) % MCH (27.0-32.0) pg MCHC (32.0-37.0) g/dL RDW 16.9 H (11.5-15.5) % Plt Count 628 H (150-450) k/uL MPV (9.5-12.2) fL Sodium 131 L (137-145) mmol/L Potassium 5.9 H (3.5-5.1) mmol/L Carbon Dioxide 18 L (22-30) mmol/L BUN 38 H (7-17) mg/dL Creatinine 1.22 H (0.52-1.04) mg/dL BUN/Creatinine Ratio (12.00-20.00) Ratio Glucose 469 H (74-99) mg/dL POC Glucose (mg/dL) (75-99) mg/dL AST 82 H (14-36) U/L ALT 36 H (4-34) U/L Urine Glucose (UA) 4+ H (Negative) 03/03/21 03/03/21 03/03/21 Range/Units 18:55 20:22 21:46 RBC (4.10-5.20) X 10*6/uL Hgb (12.0-15.0) g/dL Hct (37.2-46.3) % MCH (27.0-32.0) pg MCHC (32.0-37.0) g/dL RDW (11.5-15.5) % Plt Count (150-450) k/uL MPV (9.5-12.2) fL Sodium (137-145) mmol/L Potassium 5.8 H (3.5-5.1) mmol/L Carbon Dioxide (22-30) mmol/L BUN (7-17) mg/dL Creatinine (0.52-1.04) mg/dL BUN/Creatinine Ratio (12.00-20.00) Ratio Glucose (74-99) mg/dL POC Glucose (mg/dL) 150 H 145 H (75-99) mg/dL AST (14-36) U/L ALT (4-34) U/L Urine Glucose (UA) (Negative) 03/03/21 03/03/21 03/04/21 Range/Units 23:08 23:54 01:44 RBC (4.10-5.20) X 10*6/uL Hgb (12.0-15.0) g/dL Hct (37.2-46.3) % MCH (27.0-32.0) pg MCHC (32.0-37.0) g/dL RDW (11.5-15.5) % Plt Count (150-450) k/uL MPV (9.5-12.2) fL Sodium (137-145) mmol/L Potassium (3.5-5.1) mmol/L Carbon Dioxide (22-30) mmol/L BUN (7-17) mg/dL Creatinine (0.52-1.04) mg/dL BUN/Creatinine Ratio (12.00-20.00) Ratio Glucose (74-99) mg/dL POC Glucose (mg/dL) 277 H 291 H 173 H (75-99) mg/dL AST (14-36) U/L ALT (4-34) U/L Urine Glucose (UA) (Negative) 03/04/21 03/04/21 03/04/21 Range/Units 07:10 07:10 07:12 RBC 3.79 L (4.10-5.20) X 10*6/uL Hgb 10.0 L (12.0-15.0) g/dL Hct 33.2 L (37.2-46.3) % MCH 26.4 L (27.0-32.0) pg MCHC 30.1 L (32.0-37.0) g/dL RDW 17.6 H (11.5-15.5) % Plt Count 507 H (150-450) k/uL MPV 9.3 L (9.5-12.2) fL Sodium (137-145) mmol/L Potassium 5.7 H (3.5-5.1) mmol/L Carbon Dioxide (22-30) mmol/L BUN 29.7 H (7-17) mg/dL Creatinine (0.52-1.04) mg/dL BUN/Creatinine Ratio 28.83 H (12.00-20.00) Ratio Glucose 194 H (74-99) mg/dL POC Glucose (mg/dL) 183 H (75-99) mg/dL AST (14-36) U/L ALT (4-34) U/L Urine Glucose (UA) (Negative) 03/04/21 Range/Units 12:09 RBC (4.10-5.20) X 10*6/uL Hgb (12.0-15.0) g/dL Hct (37.2-46.3) % MCH (27.0-32.0) pg MCHC (32.0-37.0) g/dL RDW (11.5-15.5) % Plt Count (150-450) k/uL MPV (9.5-12.2) fL Sodium (137-145) mmol/L Potassium (3.5-5.1) mmol/L Carbon Dioxide (22-30) mmol/L BUN (7-17) mg/dL Creatinine (0.52-1.04) mg/dL BUN/Creatinine Ratio (12.00-20.00) Ratio Glucose (74-99) mg/dL POC Glucose (mg/dL) 367 H (75-99) mg/dL AST (14-36) U/L ALT (4-34) U/L Urine Glucose (UA) (Negative) Assessment and Plan Assessment: 1. Chest pain; ACS ruled out; patient remains on aspirin and statin therapy 2. Possible duodenitis versus peptic ulcer disease; we will start patient on PPI in form of Protonix 40 mg by mouth twice a day 3. Hyperkalemia; potassium level 5.9 in ED; patient has been placed on IV fluids with close monitoring of electrolytes; we will consult nephrology if potassium level remains elevated 4. Acute renal injury; continue with IV fluids in form of normal saline; monitor strict SEEMA's, daily weights, renal function and electrolytes; avoid nephrotoxins 5. Hyperlipidemia; Lipitor 80 mg by mouth daily at bedtime along with fenofibrate 160 mg daily 6. Diabetes mellitus; continue with home dose of metformin 500 mg daily, Levemir 20 units subcu daily along with NovoLog 5 units subcu 3 times a day with meals; monitor Accu-Cheks every before meals and at bedtime with insulin sliding scale DVT prophylaxis; SCDs CODE STATUS; full code
--- NOTE | 2021-03-05 20:28 | P.PN ---
Subjective Progress Note Date: 03/05/21 Principal diagnosis: Chest pain; ACS ruled out Acute renal injury Hyperkalemia; persistent 50-year-old female with past medical history remarkable for diabetes, pancreatitis, chronic low back pain, recurrent hyperkalemia who presents emergency Department complaining of epigastric abdominal pain that is midline and radiates down her entire abdomen with radiation towards her entire back. She denies any nausea, vomiting. Denies any shortness of breath. Denies any urinary complaints or diarrhea or constipation. She is does state that the pain does radiate somewhat into her legs. States she still able to ambulate. Denies any fevers, chills, sick contacts. She has no other acute complaints at this time. Patient presents over concern for the pain. She is otherwise pain as a sharp, achy sensation. EKG shows no signs of acute ischemia and no signs of acute hyperkalemia. CT angiograms revealed no evidence of aortic dissection or aneurysm. There is an old pulmonary nodule present. There is moderate hepatic steatosis. There is possible duodenitis or peptic ulcer disease. Laboratory studies are remarkable for a negative troponin, acute hyperkalemia 5.9, acute hyponatremia of 131. Patient is a mild [place] eye with a creatinine of 1.22. She is hyperglycemic without evidence of DKA. Urinalysis is still pending at this time. Covid swab is negative. 03/05/2021 Patient is seen and evaluated in room at bedside; continues to complain of abdominal pain and requiring morphine Vital signs are reviewed, temperature of 98.3, pulse 60, respiration 18, blood pressure 107/58 Lab review shows sodium 13.8, potassium 5.7, BUN/creatinine improved at 29.7/1.0 Nephrology is consulted for persistent hyperkalemia despite improvement in renal function; patient hasn't placed on slow IV fluid hydration with normal saline at a rate of 50 mL an hour; nephrology recommending titer blood glucose control; patient's Lantus has been increased from 20 units subcu daily up to 27 units subcu daily along with increase in metformin up to 500 mg twice a day; we will continue to monitor Accu-Cheks every before meals and at bedtime with insulin sliding scale Possible discharge in next 24-48 hours if potassium remains stable and patient is cleared by nephrology Objective - Vital Signs Vital signs: Vital Signs Temp 98.3 F 03/05/21 07:00 Pulse 60 03/05/21 07:00 Resp 18 03/05/21 07:00 BP 107/58 03/05/21 07:00 Pulse Ox 95 03/05/21 07:00 Intake & Output 03/04/21 03/05/21 03/05/21 18:59 06:59 18:59 Intake Total 330 Output Total 0 Balance 330 0 Intake: Oral 330 Output: Emesis 0 Other: # Voids 1 1 1 # Bowel Movements 0 - Exam GENERAL: The patient is alert and oriented x3, not in any acute distress. Well developed, well nourished. HEENT: Pupils are round and equally reacting to light. EOMI. No scleral icterus. No conjunctival pallor. Normocephalic, atraumatic. No pharyngeal erythema. No thyromegaly. CARDIOVASCULAR: S1 and S2 present. No murmurs, rubs, or gallops. PULMONARY: Chest is clear to auscultation, no wheezing or crackles. ABDOMEN: Soft, nontender, nondistended, normoactive bowel sounds. No palpable organomegaly. MUSCULOSKELETAL: No joint swelling or deformity. EXTREMITIES: No cyanosis, clubbing, or pedal edema. NEUROLOGICAL: Gross neurological examination did not reveal any focal deficits. SKIN: No rashes. - Labs CBC & Chem 7: 03/05/21 06:22 03/05/21 06:22 Labs: Abnormal Lab Results - Last 24 Hours (Table) 03/04/21 03/04/21 03/04/21 Range/Units 07:10 17:00 20:31 RBC (4.10-5.20) X 10*6/uL Hgb (12.0-15.0) g/dL Hct (37.2-46.3) % MCHC (32.0-37.0) g/dL RDW (11.5-14.5) % Plt Count (140-440) X 10*3/uL MPV (9.5-12.2) fL Potassium 5.7 H (3.5-5.5) mmol/L BUN 29.7 H (9.0-27.0) mg/dL BUN/Creatinine Ratio 28.83 H (12.00-20.00) Ratio Glucose 194 H (70-110) mg/dL POC Glucose (mg/dL) 324 H 326 H (75-99) mg/dL 03/05/21 03/05/21 03/05/21 Range/Units 06:22 06:22 07:47 RBC 3.68 L (4.10-5.20) X 10*6/uL Hgb 10.2 L (12.0-15.0) g/dL Hct 32.6 L (37.2-46.3) % MCHC 31.3 L (32.0-37.0) g/dL RDW 17.2 H (11.5-14.5) % Plt Count 515 H (140-440) X 10*3/uL MPV 9.3 L (9.5-12.2) fL Potassium (3.5-5.5) mmol/L BUN (9.0-27.0) mg/dL BUN/Creatinine Ratio 20.04 H (12.00-20.00) Ratio Glucose 208 H (70-110) mg/dL POC Glucose (mg/dL) 195 H (75-99) mg/dL 03/05/21 Range/Units 12:55 RBC (4.10-5.20) X 10*6/uL Hgb (12.0-15.0) g/dL Hct (37.2-46.3) % MCHC (32.0-37.0) g/dL RDW (11.5-14.5) % Plt Count (140-440) X 10*3/uL MPV (9.5-12.2) fL Potassium (3.5-5.5) mmol/L BUN (9.0-27.0) mg/dL BUN/Creatinine Ratio (12.00-20.00) Ratio Glucose (70-110) mg/dL POC Glucose (mg/dL) 278 H (75-99) mg/dL Assessment and Plan Assessment: 1. Chest pain; ACS ruled out; patient remains on aspirin and statin therapy 2. Possible duodenitis versus peptic ulcer disease; we will start patient on PPI in form of Protonix 40 mg by mouth twice a day 3. Hyperkalemia; potassium level 5.9 in ED; patient has been placed on IV fluids with close monitoring of electrolytes; we will consult nephrology if potassium level remains elevated 4. Acute renal injury; continue with IV fluids in form of normal saline; monitor strict SEEMA's, daily weights, renal function and electrolytes; avoid nephrotoxins 5. Hyperlipidemia; Lipitor 80 mg by mouth daily at bedtime along with fenofibrate 160 mg daily 6. Diabetes mellitus; continue with home dose of metformin 500 mg daily, Levemir 20 units subcu daily along with NovoLog 5 units subcu 3 times a day with meals; monitor Accu-Cheks every before meals and at bedtime with insulin sliding scale DVT prophylaxis; SCDs CODE STATUS; full code
[2021-03-05] MEDS: traZODone HCL 50 MG TAB PO PRN (20:40)
[2021-03-06] MEDS: traMADol 50 MG TAB PO PRN ×3 (03:16→18:03)
[2021-03-06 07:59] LABS: Glucose,Whole Blood 232 mg/dL (75-99)
[2021-03-06] MEDS: INSULIN DETEMIR (LEVEMIR) 100 UNIT/ML SYR SQ SCH (08:27)
[2021-03-06] MEDS: ATORVASTATIN 80 MG TAB PO SCH (08:28)
[2021-03-06] MEDS: metFORMIN 500 MG TAB PO SCH ×2 (08:28→18:04)
[2021-03-06] MEDS: INSULIN ASPART (NovoLOG) 100 UNIT/ML VIAL SQ SCH ×7 (08:28→20:39)
[2021-03-06] MEDS: FENOFIBRATE 160 MG TAB PO SCH (08:28)
[2021-03-06] MEDS: PANTOPRAZOLE 40 MG/10 ML VIAL IVP SCH ×2 (08:28→20:39)
[2021-03-06 10:51] LABS: African American GFR (CKD) 77.2 (60.0-200.0); Anion Gap 14.8 mmol/L (10.00-18.00); BUN/Creat Ratio 17.2 Ratio (12.00-20.00); Blood Urea Nitrogen 17.2 mg/dL (9.0-27.0); Calcium 9.1 mg/dL (8.7-10.3); Carbon Dioxide 21.2 mmol/L (20.0-27.5); Magnesium 1.4 mg/dL (1.5-2.4); Non-African American GFR(CKD) 66.6 (60.0-200.0)
[2021-03-06 12:20] LABS: Glucose,Whole Blood 293 mg/dL (75-99)
--- NOTE | 2021-03-06 15:27 | PN ---
PROGRESS NOTE Patient is seen for followup for acute kidney injury and hyperkalemia. Her potassium has improved. It was 5.0 today and serum creatinine is also down to 1.0 from peak of 1.2. The patient's blood sugars remain on the higher side with blood sugar at 293 this morning. PHYSICAL EXAMINATION: On examination today, blood pressure 145/85, heart rate 56 per minute. She is afebrile. Examination of the heart S1, S2. Examination of lungs: Decreased breath sounds at the bases. Abdomen is soft, nontender. Examination of lower extremities shows no significant edema. NURSE MANAGER exam grossly intact. LAB: Show sodium 134, potassium 5.0, chloride 98, BUN 17, serum creatinine 1.0. ASSESSMENT: 1. Acute kidney injury currently improved mostly prerenal improved with IV hydration. The patient is status post IV contrast on March 03. We will continue to monitor for contrast nephropathy. 2. Hyperkalemia associated with acute kidney injury, acidosis as well as hyperglycemia and NSAIDs and BRANDIE inhibitors. Potassium is much improved. 3. Type 2 diabetes. 4. Abdominal pain. No evidence of aortic dissection noted on the CT. 5. Metabolic acidosis associated with acute kidney injury, now improved. PLAN: May continue with the IV fluids. Continue to hold off on BRANDIE inhibitors for now. Control blood sugars as blood sugar remains elevated at 293. MMODL / IJN: [id number] /
[2021-03-06 17:12] LABS: Glucose,Whole Blood 265 mg/dL (75-99)
[2021-03-06] MEDS ORDERED: ACETAMINOPHEN TAB 325 MG TAB PO PRN (19:46)
[2021-03-06 20:00] LABS: Glucose,Whole Blood 313 mg/dL (75-99)
[2021-03-06] MEDS: traZODone HCL 50 MG TAB PO PRN (20:39)
[2021-03-07] MEDS: traMADol 50 MG TAB PO PRN ×2 (01:28→08:10)
[2021-03-07 07:30] LABS: Glucose,Whole Blood 174 mg/dL (75-99)
[2021-03-07 07:44] VITALS: BP 121/73; PULSE 65; RESP 18; TEMP 98.3
[2021-03-07] MEDS: PANTOPRAZOLE 40 MG/10 ML VIAL IVP SCH (08:09)
[2021-03-07] MEDS: INSULIN ASPART (NovoLOG) 100 UNIT/ML VIAL SQ SCH ×2 (08:10→08:11)
[2021-03-07] MEDS: FENOFIBRATE 160 MG TAB PO SCH (08:10)
[2021-03-07] MEDS: metFORMIN 500 MG TAB PO SCH (08:10)
[2021-03-07] MEDS: ATORVASTATIN 80 MG TAB PO SCH (08:10)
[2021-03-07] MEDS: INSULIN DETEMIR (LEVEMIR) 100 UNIT/ML SYR SQ SCH (08:10)
[2021-03-07] MEDS ORDERED: ERGOCALCIFEROL 1,250 MCG (50,000 IU) CAPSULE PO SCH (09:00)
--- NOTE | 2021-03-09 14:57 | PN ---
PROGRESS NOTE DATE OF SERVICE: 03/06/2021. CHIEF COMPLAINT: Acute kidney injury and abdominal pain with hyperkalemia, diabetes and history of pancreatitis. HISTORY OF PRESENT ILLNESS: This lady is doing a little bit better. Her abdominal pain is improving and renal function is getting better. She is not nauseated. PHYSICAL EXAMINATION: Chest is clear. Cardiac exam is normal. Abdomen is soft, nontender. IMPRESSION: 1. Acute kidney injury. 2. Prerenal azotemia. 3. Hyperkalemia. 4. Poorly-controlled insulin-dependent diabetes mellitus. 5. History of pancreatitis. PLAN: Progress activity and diet and repeat lipase. MMODL / IJN: [id number] /
--- NOTE | 2021-03-09 17:57 | DS ---
DISCHARGE SUMMARY DATE OF DISCHARGE: 03/07/2021 CHIEF COMPLAINT: Abdominal pain, dehydration, acute kidney injury and elevated potassium. HISTORY OF PRESENT ILLNESS AND PHYSICAL EXAMINATION: Details of this lady's history and physical can be found in the initial workup. LABORATORY STUDIES: While she was in the hospital she had laboratory studies, details of which can be found in the laboratory section of her chart. COURSE IN THE HOSPITAL: After admission she was placed on bedrest, started on intravenous fluids, and after rehydration her BUN and creatinine started to settle back down toward normal. Potassium was corrected. Sugars were brought under reasonable control. She was doing well enough that it was felt that she could be discharged on March 07. She will go home on her usual activity, diet and medication, and she will follow up in the office in a day or two. FINAL DIAGNOSES: 1. Prerenal azotemia. 2. Hyperkalemia. 3. History of pancreatitis. 4. Poorly controlled insulin-dependent diabetes mellitus. OPERATIONS: None. CONSULTATION: Nephrology. She is improved. MMPAULA / EVELINN: [id number] /
== END 2021-03-07 11:47 | disposition home or self-care (01) | DRG 683 ==
LOC: EC 13:58 → 6NMEDSUR 16:38 → OBSVTOIN 03-06 10:40
PROVIDERS: ADMIT Family Medicine; ATTEND Family Medicine
DX: N17.9 Acute kidney failure, unspecified (principal); K86.1 Other chronic pancreatitis; E87.1 Hypo-osmolality and hyponatremia; E87.2 Acidosis; E87.5 Hyperkalemia; Z20.822 Contact with and (suspected) exposure to COVID-19; R07.89 Other chest pain; G89.29 Other chronic pain; M54.50 Low back pain, unspecified; I10 Essential (primary) hypertension; E11.65 Type 2 diabetes mellitus with hyperglycemia; E78.5 Hyperlipidemia, unspecified; E86.0 Dehydration; K21.9 Gastro-esophageal reflux disease without esophagitis; F17.210 Nicotine dependence, cigarettes, uncomplicated; K27.9 Peptic ulcer, site unspecified, unspecified as acute or chronic, without hemorrhage or perforation; K29.80 Duodenitis without bleeding; K76.0 Fatty (change of) liver, not elsewhere classified; Z79.4 Long term (current) use of insulin; Z79.82 Long term (current) use of aspirin; Z79.84 Long term (current) use of oral hypoglycemic drugs; Z79.899 Other long term (current) drug therapy; Z88.1 Allergy status to other antibiotic agents; Z98.51 Tubal ligation status; Z87.440 Personal history of urinary (tract) infections
CPT/HCPCS: 36415; 71275; 74174; 80048; 80053; 81003; 83690; 83735; 84132; 84484; 85025; 85379; 85610; 85730; 87635; 93005; 96374; 96375; 99285

== ENCOUNTER 2021-03-28 14:38 | Inpatient (IN) | payer MEDICARE ==
[2021-03-28] MEDS ORDERED: ONDANSETRON 4 MG/2 ML VIAL IVP STA (15:18)
[2021-03-28] MEDS ORDERED: SODIUM CHLORIDE 0.9% 500 ML 500 ML IV STA (15:18)
[2021-03-28] MEDS ORDERED: MORPHINE SULFATE 4 MG/ML SYRINGE IV STA (15:18)
--- NOTE | 2021-03-28 15:23 | ED ---
Abdominal Pain HPI <Servando Hernandez - Last Filed: 03/28/21 19:02> - General Source: patient, EMS, RN notes reviewed, old records reviewed Mode of arrival: EMS Limitations: no limitations - History of Present Illness -: days(s) (1) Location: diffuse, LUQ Severity: severe Severity scale (1-10): 10 Quality: sharp Improves With: nothing Worsens With: other (palpation) Associated Symptoms: nausea, vomiting <Kenneth Marie - Last Filed: 03/28/21 19:43> - General Chief Complaint: Abdominal Pain Stated Complaint: Lower abd pain Time Seen by Provider: 03/28/21 15:10 - History of Present Illness Initial Comments: 50-year-old female presents to the emergency room, alert and oriented 4, with complaints of left upper abdominal pain since she woke up this morning. Patient states that she vomited once and it was clear in color. She is complaining of nausea since. She has no lower abdominal pain but states that the pain radiates from left upper quadrant and across her abdomen and up into her chest. She states that she has had this before but doesn't remember what it was. She denies any fevers. She states that she quit smoking yesterday. She has had a history of [id number]-[id number] diabetes, GERD, pancreatitis, fatty liver. (Kenneth Marie) - Related Data Home Medications Medication Instructions Recorded Confirmed Atorvastatin [Lipitor] 80 mg PO DAILY 06/25/19 03/28/21 INSULIN ASPART (NovoLOG) [NovoLOG 18 unit SQ TID-W/MEALS 06/25/19 03/28/21 (formulary)] lisinopriL 40 mg PO DAILY 09/24/20 03/28/21 metFORMIN HCL [Glucophage] 500 mg PO DAILY 09/24/20 03/28/21 traZODone HCL 50 - 100 mg PO HS PRN 01/11/21 03/28/21 Insulin Detemir (Levemir) [Levemir] 20 unit SQ DAILY 02/17/21 03/28/21 Ergocalciferol (Vitamin D2) 1,250 mcg PO TU 03/03/21 03/28/21 [Drisdol (50,000 Iu)] traMADol HCL 50 mg PO Q6H PRN 11/26/21 12/21/21 Esomeprazole Magnesium [NexIUM] 20 mg PO DAILY 03/28/21 03/28/21 Previous Rx's Medication Instructions Recorded Fenofibrate [Lofibra] 160 mg PO DAILY #30 tab 03/23/19 Allergies Allergy/AdvReac Type Severity Reaction Status Date / Time levofloxacin [From Levaquin] Allergy Unknown Verified 03/28/21 17:15 Review of Systems ROS Other: All systems not noted in ROS Statement are negative. <Servando Hernandez - Last Filed: 03/28/21 19:02> ROS Other: All systems not noted in ROS Statement are negative. <Kenneth Marie - Last Filed: 03/28/21 19:43> ROS Statement: Those systems with pertinent positive or pertinent negative responses have been documented in the HPI. Past Medical History Past Medical History: Diabetes Mellitus, GERD/Reflux, Hyperlipidemia, Syncope Additional Past Medical History / Comment(s): Pancreatitis twice, NIDDM type II, UTI, chronic low back pain, bulging discs, dental abscesses in past. History of Any Multi-Drug Resistant Organisms: None Reported Past Surgical History: Tubal Ligation Additional Past Surgical History / Comment(s): Age 7 had VSD repair Past Anesthesia/Blood Transfusion Reactions: No Reported Reaction Past Psychological History: No Psychological Hx Reported Smoking Status: Former smoker Past Alcohol Use History: None Reported Past Drug Use History: None Reported - Past Family History Mother Family Medical History: No Reported History Additional Family Medical History / Comment(s): Mother was healthy. She is , pt cannot recall cause of . Father Family Medical History: Pneumonia Additional Family Medical History / Comment(s): Father at the age of 67yrs from pneumonia <Kenneth Marie - Last Filed: 03/28/21 19:43> General Exam Limitations: no limitations General appearance: alert, in no apparent distress Head exam: Present: atraumatic, normocephalic, normal inspection Eye exam: Present: normal appearance, EOMI. Absent: scleral icterus, conjunctival injection, periorbital swelling, periorbital tenderness ENT exam: Present: normal exam, normal oropharynx, mucous membranes moist Neck exam: Present: full ROM Respiratory exam: Present: normal lung sounds bilaterally. Absent: respiratory distress, wheezes, rales, rhonchi, stridor, chest wall tenderness, accessory muscle use, decreased breath sounds Cardiovascular Exam: Present: regular rate, normal rhythm, normal heart sounds. Absent: systolic murmur, diastolic murmur, rubs, gallop, clicks, JVD GI/Abdominal exam: Present: soft, tenderness (Left upper quadrant), normal bowel sounds. Absent: guarding, rebound, rigid Extremities exam: Present: normal inspection, full ROM, normal capillary refill. Absent: tenderness, pedal edema, joint swelling, calf tenderness Back exam: Present: normal inspection. Absent: tenderness, CVA tenderness (R), CVA tenderness (L), rash noted Neurological exam: Present: alert, oriented X3 Psychiatric exam: Present: normal affect, normal mood Skin exam: Present: warm, dry, intact, normal color. Absent: rash, cyanosis, diaphoretic, erythema, petechiae, pallor, mottled <Kenneth Marie - Last Filed: 03/28/21 19:43> Course <Servando Hernandez - Last Filed: 03/28/21 19:02> - Reevaluation(s) Time: 19:06 Time: 19:42 <Kenneth Marie - Last Filed: 03/28/21 19:43> Vital Signs 03/28/21 03/28/21 03/28/21 14:43 17:24 18:52 Temperature 98.7 F 100.1 F H Pulse Rate 77 75 80 Respiratory 18 22 Rate Blood Pressure 148/64 105/43 O2 Sat by Pulse 96 93 L Oximetry 03/28/21 19:16 Temperature Pulse Rate 81 Respiratory Rate Blood Pressure O2 Sat by Pulse Oximetry - Reevaluation(s) Reevaluation #1: 03/28/21 19:02 Patient reevaluated and reexamined by myself, Dr. Hernandez. Patient resting comfortably in bed. Abdomen soft moderate epigastric tenderness. Patient has hyperkalemia and borderline DKA. Patient also has pancreatitis. Patient will be given treatment for hyperkalemia with hope of keeping patient on the ICU secondary to no ICU beds. Potassium level be drawn again within the next few h ours. Practitioner did speak with Dr. Ford who will admit his patient. He is familiar with this patient. Nephrology will also be placed on consult. (Servando Hernandez) Dr. Hernandez at bedside to evaluate patient. Patient no longer with nausea pain has improved after Dilaudid. I did speak with Dr. Cerda regarding admission. There are no ICU beds at this time treat patient in the ER for hyperglycemia and hyperkalemia. IV fluids for pancreatitis 03/28/21 19:06 (Kenneth Marie) Reevaluation #2: 03/28/21 19:42 Patient's pain is under control. She has some nausea but does not want any further antiemetics at this time. She states that she will let us know if she needs more medication. (Kenneth Marie) Medical Decision Making - Lab Data Result diagrams: 03/28/21 15:46 03/28/21 17:17 <Servando Hernandez - Last Filed: 03/28/21 19:02> - Lab Data Result diagrams: 03/28/21 15:46 03/28/21 17:17 - EKG Data EKG shows normal: sinus rhythm (Ventricular rate of 75, MD interval 0.146, QRS 0.94, QTC 0.419) When compared to previous EKG there are: no significant change (02/2021) <Kenneth Marie - Last Filed: 03/28/21 19:43> - Medical Decision Making 50-year-old female presents to the emergency room, alert and oriented 4, with complaints of left upper abdominal pain since she woke up this morning. Patient states that she vomited once and it was clear in color. She continues to have nausea. She has no lower abdominal pain but states that the pain radiates from left upper quadrant and across her abdomen and up into her chest. She states that she has had this before but doesn't remember what it was. She denies any fevers. She states that she quit smoking yesterday. She has had a history of hwm-oovvfhp-hxecfiibf diabetes, GERD, pancreatitis, fatty liver. She denies alcohol use. Patient has a white blood cell count of 20.7 with a left shift. Lactic acid is 3.0 and she was given a liter of normal saline started 130 mL normal saline per hour. Troponin is negative at 0.012 EKG shows normal sinus rhythm. Lipase is 8419, amylase 238, glucose is 475. Serum acetone is positive CT abdomen shows retroperitoneal fat stranding consistent with acute pancreatitis. This is consistent with her labs and she'll be admitted to the hospital for pancreatitis, hyperkalemia and DKA. IV fluids were initiated, pain medication and antiemetics were provided. Patient was started on a insulin drip and given medications for hyperkalemia in the emergency room. I did speak with Dr. Salazar who is familiar with patient. Case discussed with Dr. Hernandez ([facility]) - Lab Data Lab Results 03/28/21 03/28/21 03/28/21 Range/Units 15:46 15:46 15:46 WBC 20.7 H (3.8-10.6) k/uL RBC 4.87 (3.80-5.40) m/uL Hgb 13.3 (11.4-16.0) gm/dL Hct 43.0 (34.0-46.0) % MCV 88.2 (80.0-100.0) fL MCH 27.4 (25.0-35.0) pg MCHC 31.0 (31.0-37.0) g/dL RDW 16.5 H (11.5-15.5) % Plt Count 692 H (150-450) k/uL MPV 7.9 Neutrophils % 90 % Lymphocytes % 5 % Monocytes % 3 % Eosinophils % 1 % Basophils % 0 % Neutrophils # 18.6 H (1.3-7.7) k/uL Lymphocytes # 1.1 (1.0-4.8) k/uL Monocytes # 0.7 (0-1.0) k/uL Eosinophils # 0.1 (0-0.7) k/uL Basophils # 0.1 (0-0.2) k/uL Hypochromasia Slight Anisocytosis Slight PT 10.7 (9.0-12.0) sec INR 1.0 (<1.2) APTT 22.1 (22.0-30.0) sec Sodium (137-145) mmol/L Potassium (3.5-5.1) mmol/L Chloride (98-107) mmol/L Carbon Dioxide (22-30) mmol/L Anion Gap mmol/L BUN (7-17) mg/dL Creatinine (0.52-1.04) mg/dL Est GFR (CKD-EPI)AfAm (>60 ml/min/1.73 sqM) Est GFR (CKD-EPI)NonAf (>60 ml/min/1.73 sqM) Glucose (74-99) mg/dL POC Glucose (mg/dL) (75-99) mg/dL POC Glu Sas Programmer ID Lactic Ac Sepsis Rflx Plasma Lactic Acid Travon 3.0 H* (0.7-2.0) mmol/L Calcium (8.4-10.2) mg/dL Total Bilirubin (0.2-1.3) mg/dL AST (14-36) U/L ALT (4-34) U/L Alkaline Phosphatase (38-126) U/L Troponin I (0.000-0.034) ng/mL Total Protein (6.3-8.2) g/dL Albumin (3.5-5.0) g/dL Amylase (30-110) U/L Lipase (23-300) U/L Acetone, Qual (Negative) Coronavirus (PCR) (Not Detectd) 03/28/21 03/28/21 03/28/21 Range/Units 16:13 16:16 16:16 WBC (3.8-10.6) k/uL RBC (3.80-5.40) m/uL Hgb (11.4-16.0) gm/dL Hct (34.0-46.0) % MCV (80.0-100.0) fL MCH (25.0-35.0) pg MCHC (31.0-37.0) g/dL RDW (11.5-15.5) % Plt Count (150-450) k/uL MPV Neutrophils % % Lymphocytes % % Monocytes % % Eosinophils % % Basophils % % Neutrophils # (1.3-7.7) k/uL Lymphocytes # (1.0-4.8) k/uL Monocytes # (0-1.0) k/uL Eosinophils # (0-0.7) k/uL Basophils # (0-0.2) k/uL Hypochromasia Anisocytosis PT (9.0-12.0) sec INR (<1.2) APTT (22.0-30.0) sec Sodium 130 L (137-145) mmol/L Potassium 8.1 H* (3.5-5.1) mmol/L Chloride 98 (98-107) mmol/L Carbon Dioxide 15 L (22-30) mmol/L Anion Gap 17 mmol/L BUN 42 H (7-17) mg/dL Creatinine 1.81 H (0.52-1.04) mg/dL Est GFR (CKD-EPI)AfAm 38 (>60 ml/min/1.73 sqM) Est GFR (CKD-EPI)NonAf 33 (>60 ml/min/1.73 sqM) Glucose 475 H (74-99) mg/dL POC Glucose (mg/dL) (75-99) mg/dL POC Glu Sas Programmer ID Lactic Ac Sepsis Rflx Y Plasma Lactic Acid Travon (0.7-2.0) mmol/L Calcium 9.6 (8.4-10.2) mg/dL Total Bilirubin 0.7 (0.2-1.3) mg/dL AST 100 H (14-36) U/L ALT 39 H (4-34) U/L Alkaline Phosphatase 122 (38-126) U/L Troponin I <0.012 (0.000-0.034) ng/mL Total Protein 7.7 (6.3-8.2) g/dL Albumin 4.5 (3.5-5.0) g/dL Amylase 238 H (30-110) U/L Lipase 8419 H (23-300) U/L Acetone, Qual (Negative) Coronavirus (PCR) (Not Detectd) 03/28/21 03/28/21 03/28/21 Range/Units 17:17 17:17 17:39 WBC (3.8-10.6) k/uL RBC (3.80-5.40) m/uL Hgb (11.4-16.0) gm/dL Hct (34.0-46.0) % MCV (80.0-100.0) fL MCH (25.0-35.0) pg MCHC (31.0-37.0) g/dL RDW (11.5-15.5) % Plt Count (150-450) k/uL MPV Neutrophils % % Lymphocytes % % Monocytes % % Eosinophils % % Basophils % % Neutrophils # (1.3-7.7) k/uL Lymphocytes # (1.0-4.8) k/uL Monocytes # (0-1.0) k/uL Eosinophils # (0-0.7) k/uL Basophils # (0-0.2) k/uL Hypochromasia Anisocytosis PT (9.0-12.0) sec INR (<1.2) APTT (22.0-30.0) sec Sodium (137-145) mmol/L Potassium 8.1 H* (3.5-5.1) mmol/L Chloride (98-107) mmol/L Carbon Dioxide (22-30) mmol/L Anion Gap mmol/L BUN (7-17) mg/dL Creatinine (0.52-1.04) mg/dL Est GFR (CKD-EPI)AfAm (>60 ml/min/1.73 sqM) Est GFR (CKD-EPI)NonAf (>60 ml/min/1.73 sqM) Glucose (74-99) mg/dL POC Glucose (mg/dL) (75-99) mg/dL POC Glu Sas Programmer ID Lactic Ac Sepsis Rflx Plasma Lactic Acid Travon (0.7-2.0) mmol/L Calcium (8.4-10.2) mg/dL Total Bilirubin (0.2-1.3) mg/dL AST (14-36) U/L ALT (4-34) U/L Alkaline Phosphatase (38-126) U/L Troponin I (0.000-0.034) ng/mL Total Protein (6.3-8.2) g/dL Albumin (3.5-5.0) g/dL Amylase (30-110) U/L Lipase (23-300) U/L Acetone, Qual Positive (Negative) Coronavirus (PCR) Not Detected (Not Detectd) 03/28/21 03/28/21 Range/Units 18:23 18:57 WBC (3.8-10.6) k/uL RBC (3.80-5.40) m/uL Hgb (11.4-16.0) gm/dL Hct (34.0-46.0) % MCV (80.0-100.0) fL MCH (25.0-35.0) pg MCHC (31.0-37.0) g/dL RDW (11.5-15.5) % Plt Count (150-450) k/uL MPV Neutrophils % % Lymphocytes % % Monocytes % % Eosinophils % % Basophils % % Neutrophils # (1.3-7.7) k/uL Lymphocytes # (1.0-4.8) k/uL Monocytes # (0-1.0) k/uL Eosinophils # (0-0.7) k/uL Basophils # (0-0.2) k/uL Hypochromasia Anisocytosis PT (9.0-12.0) sec INR (<1.2) APTT (22.0-30.0) sec Sodium (137-145) mmol/L Potassium (3.5-5.1) mmol/L Chloride (98-107) mmol/L Carbon Dioxide (22-30) mmol/L Anion Gap mmol/L BUN (7-17) mg/dL Creatinine (0.52-1.04) mg/dL Est GFR (CKD-EPI)AfAm (>60 ml/min/1.73 sqM) Est GFR (CKD-EPI)NonAf (>60 ml/min/1.73 sqM) Glucose (74-99) mg/dL POC Glucose (mg/dL) 391 H (75-99) mg/dL POC Glu Sas Programmer ID David Fitzgerald Lactic Ac Sepsis Rflx Plasma Lactic Acid Travon 2.7 H* (0.7-2.0) mmol/L Calcium (8.4-10.2) mg/dL Total Bilirubin (0.2-1.3) mg/dL AST (14-36) U/L ALT (4-34) U/L Alkaline Phosphatase (38-126) U/L Troponin I (0.000-0.034) ng/mL Total Protein (6.3-8.2) g/dL Albumin (3.5-5.0) g/dL Amylase (30-110) U/L Lipase (23-300) U/L Acetone, Qual (Negative) Coronavirus (PCR) (Not Detectd) Critical Care Time Critical Care Time: Yes Total Critical Care Time: 35 (Previous records reviewed. Serial abdominal assessments, pain control, hyperkalemia treatment) <Kenneth Marie - Last Filed: 03/28/21 19:43> Disposition <Servando Hernandez - Last Filed: 03/28/21 19:02> Decision Date: 03/28/21 Decision Time: 19:14 <Kenneth Marie - Last Filed: 03/28/21 19:43> Clinical Impression: Pancreatitis, DKA (diabetic ketoacidosis), Hyperkalemia Disposition: ADMITTED IP TO THIS HOSP Referrals: Guillermo Cerda MD [Primary Care Provider] - 1-2 days
[2021-03-28 15:56] LABS: Anisocytosis Slight; Basophils # (A) 0.1 k/uL (0-0.2); Basophils % (A) 0 %; Eosinophils # (A) 0.1 k/uL (0-0.7); Eosinophils % (A) 1 %; HGB 13.3 gm/dL (11.4-16.0); Hypochromasia Slight; Lymphocytes # (A) 1.1 k/uL (1.0-4.8); Lymphocytes % (A) 5 %; MCH 27.4 pg (25.0-35.0); MCV 88.2 fL (80.0-100.0); Mean Platelet Volume 7.9; Monocytes # (A) 0.7 k/uL (0-1.0); Monocytes % (A) 3 %; Neutrophils # (A) 18.6 k/uL (1.3-7.7); Neutrophils % (A) 90 %; Platelet Count 692 k/uL (150-450); RBC 4.87 m/uL (3.80-5.40); RDW 16.5 % (11.5-15.5); WBC 20.7 k/uL (3.8-10.6)
[2021-03-28 16:10] LABS: Partial Thromboplastin Time 22.1 sec (22.0-30.0); Prothrombin Time 10.7 sec (9.0-12.0)
[2021-03-28] MEDS ORDERED: SODIUM CHLORIDE 0.9% 500 ML 500 ML IV ONE (16:16)
--- NOTE | 2021-03-28 16:35 | XR ---
EXAMINATION TYPE: XR KUB DATE OF EXAM: 03/28/2021 4:26 PM CLINICAL HISTORY: Lower abdominal pain. TECHNIQUE: Two Upright KUB images of the abdomen are obtained. COMPARISON: CTA aorta March 03, 2021 FINDINGS: Scattered gas is seen in non-distended small and large bowel loops. Tubal ligation clips re demonstrated over the pelvis. Visualized Lung bases are clear. Some motion artifact is present. No valentine spicious calcifications. Osseous structures are intact. IMPRESSION: Overall nonobstructive bowel gas pattern.
[2021-03-28 16:36] LABS: Albumin 4.5 g/dL (3.5-5.0); Calcium 9.6 mg/dL (8.4-10.2); Total Bilirubin 0.7 mg/dL (0.2-1.3); Total Protein 7.7 g/dL (6.3-8.2)
[2021-03-28 17:10] LABS: Potassium 8.1 mmol/L (3.5-5.1)
[2021-03-28] MEDS ORDERED: PANTOPRAZOLE 40 MG/10 ML VIAL IVP STA (17:19)
[2021-03-28] MEDS ORDERED: HYDROmorphone 1 MG/ML 1 ML SYRINGE IVP STA (17:20)
[2021-03-28] MEDS: SODIUM CHLORIDE 0.9% 1,000 ML IV SCH (17:35)
--- NOTE | 2021-03-28 17:57 | CT ---
EXAMINATION TYPE: CT abdomen pelvis wo con DATE OF EXAM: 03/28/2021 COMPARISON: 09/24/2020 HISTORY: Abdominal and back pain. CT DLP: 1359.4 mGycm Automated exposure control for dose reduction was used. Lung bases are clear of consolidation. There is no pleural effusion. Heart size is normal. There is some fatty replacement of the liver. Spleen is intact. Stomach is intact. There is some fat stranding around the body and head of the pancreas. This extends into the small bowel mesentery. Gallbladder is intact. The bile ducts are nondilated. There is no adrenal mass. Kidneys have normal s ize. There is no hydronephrosis. Ureters are not dilated. Bladder distends smoothly. There is no ingu inal hernia. There is no free fluid in the pelvis. There are surgical clips in the pelvis. Appendix n ot seen. No sign of thickened appendix. There is no ascites or free air. There is no bowel obstruction. The lumbar vertebra have normal align ment. There is no compression fracture. Bony pelvis is intact. The hip joints are intact. IMPRESSION: Retroperitoneal fat stranding and edema consistent with acute pancreatitis. This appears new compared to old exam. 23 cm enlarged liver with fatty infiltration.
[2021-03-28] MEDS ORDERED: SODIUM POLYSTYRENE SULFONATE 15 GM/60 ML BOTTLE PO ONE (18:34)
[2021-03-28] MEDS ORDERED: INSULIN REGULAR 100 UNIT/ML VIAL (IV) IV ONE (18:34)
[2021-03-28] MEDS ORDERED: CALCIUM GLUCONATE 1 GM in SODIUM CHLORIDE 0.9% 100 ML IVPB ONE (18:34)
[2021-03-28] MEDS ORDERED: ALBUTEROL NEB (CONC) 2.5 MG/0.5 ML INHALATION ONE (18:34)
[2021-03-28] MEDS: DEXTROSE 50% SYRINGE 50 ML IVP ONE ×2 (18:50→20:18)
[2021-03-28] MEDS ORDERED: FUROSEMIDE 10 MG/ML 4 ML VIAL IV STA (18:54)
[2021-03-28 18:59] LABS: Glucose,Whole Blood 391 mg/dL (75-99)
[2021-03-28] MEDS ORDERED: NALOXONE 0.4 MG/ML 1 ML VIAL IV PRN (19:10)
[2021-03-28] MEDS ORDERED: ACETAMINOPHEN TAB 325 MG TAB PO STA (19:36)
[2021-03-28 20:18] LABS: Glucose,Whole Blood 380 mg/dL (75-99)
[2021-03-28] MEDS: PANTOPRAZOLE 40 MG/10 ML VIAL IV SCH (20:18)
[2021-03-28] MEDS: INSULIN REGULAR 100 UNIT in SODIUM CHLORIDE 0.9% 100 ML IV SCH (20:33)
[2021-03-28 20:59] LABS: Appearance,Urine Clear (Clear); Bilirubin,Urine Negative (Negative); Blood,Urine Negative (Negative); Color,Urine Yellow; Glucose,Urine (UA) 3+ (Negative); Ketones,Urine Negative (Negative); Leukocyte Esterase,Urine Negative (Negative); Nitrite,Urine Negative (Negative); Protein,Urine Trace (Negative); Specific Gravity,Urine 1.015 (1.001-1.035); Urobilinogen,Urine <2.0 mg/dL (<2.0)
[2021-03-28 21:36] LABS: Glucose,Whole Blood 372 mg/dL (75-99)
[2021-03-28] MEDS: HYDROmorphone 0.5 MG/0.5 ML SYRINGE IVP PRN (22:06)
[2021-03-28 22:20] LABS: Phosphorus 5.7 mg/dL (2.5-4.5)
[2021-03-28 22:25] LABS: Potassium 6.6 mmol/L (3.5-5.1)
[2021-03-28 23:26] LABS: Glucose,Whole Blood 269 mg/dL (75-99)
[2021-03-29] MEDS: DEXTROSE 5%-0.45% NACL 1,000 ML IV SCH ×2 (00:15→11:36)
[2021-03-29 00:47] LABS: Glucose,Whole Blood 225 mg/dL (75-99)
[2021-03-29 01:26] LABS: Glucose,Whole Blood 244 mg/dL (75-99)
[2021-03-29] MEDS: HYDROmorphone 0.5 MG/0.5 ML SYRINGE IVP PRN ×4 (01:26→11:38)
[2021-03-29 02:31] LABS: Phosphorus 5.2 mg/dL (2.5-4.5)
[2021-03-29 02:33] LABS: Potassium 6.7 mmol/L (3.5-5.1)
[2021-03-29] MEDS ORDERED: SODIUM BICARB 8.4% 50 ML SYR (1 MEQ/ML) IV STA ×3 (02:57→21:32)
[2021-03-29 03:03] LABS: Glucose,Whole Blood 168 mg/dL (75-99)
[2021-03-29] MEDS: DEXTROSE 5% IN WATER 1,000 ML with SODIUM BICARB (1 MEQ/ML) 100 ML IV SCH ×2 (03:33→16:28)
[2021-03-29 03:51] LABS: Glucose,Whole Blood 172 mg/dL (75-99)
[2021-03-29 05:00] LABS: Glucose,Whole Blood 136 mg/dL (75-99)
[2021-03-29] MEDS: INSULIN REGULAR 100 UNIT in SODIUM CHLORIDE 0.9% 100 ML IV SCH (05:08)
[2021-03-29 06:35] LABS: Glucose,Whole Blood 201 mg/dL (75-99)
[2021-03-29 07:42] LABS: Glucose,Whole Blood 187 mg/dL (75-99)
[2021-03-29 07:44] LABS: Albumin 3.2 g/dL (3.5-5.0); Calcium 8.8 mg/dL (8.4-10.2); Phosphorus 5.3 mg/dL (2.5-4.5); Potassium 5.6 mmol/L (3.5-5.1); Total Bilirubin 0.6 mg/dL (0.2-1.3); Total Protein 6.2 g/dL (6.3-8.2)
[2021-03-29] MEDS: PANTOPRAZOLE 40 MG/10 ML VIAL IV SCH (08:16)
[2021-03-29 08:34] LABS: Glucose,Whole Blood 209 mg/dL (75-99)
--- NOTE | 2021-03-29 09:33 | P.NPCON ---
History of Present Illness - Reason for Consult acute renal failure, hyperkalemia - History of Present Illness Reason for consultation: Acute kidney injury and hyperkalemia History of present illness: Patient is a 50-year-old female seen in renal consultation for acute kidney injury and hyperkalemia. Patient was seen and examined in the emergency room. Patient's creatinine on admission was 1.8 and peaked at 2.21. It was 2.08 this morning. Baseline creatinine is near 1. Patient's blood sugar was 475 on admission and was positive for ketones in the blood. She is being treated per DKA protocol. Potassium level was 8.1 on admission and with medical management. 6.7 last night. IV fluids were changed from D5 half normal saline to D5 with 2 A of sodium bicarb currently running at 100 mL an hour. Repeat potassium level is 5.6. Acidosis is also improved. She still on insulin drip. Blood sugar this morning was 209. She denies chest pain or shortness of breath. No hematuria or dysuria. Patient has long-standing history of diabetes. She was on lisinopril at home which is currently held. She doesn't negative for coronavirus. Blood pressure stable. Vital signs are stable. General: The patient appeared well nourished and normally developed. HEENT: Head exam is unremarkable. LUNGS: Breath sounds decreased. HEART: Rate and Rhythm are regular. ABDOMEN: Soft, no distention. EXTREMITITES: No edema. Past Medical History Past Medical History: Diabetes Mellitus, GERD/Reflux, Hyperlipidemia, Hypertension, Syncope Additional Past Medical History / Comment(s): Pancreatitis twice, IDDM type II, UTI, chronic low back pain, bulging discs, dental abscesses in past. History of Any Multi-Drug Resistant Organisms: None Reported Past Surgical History: Tubal Ligation Additional Past Surgical History / Comment(s): Age 7 had VSD repair Past Anesthesia/Blood Transfusion Reactions: No Reported Reaction Smoking Status: Current every day smoker - Past Family History Mother Family Medical History: No Reported History Additional Family Medical History / Comment(s): Mother was healthy. She is , pt cannot recall cause of . Father Family Medical History: Pneumonia Additional Family Medical History / Comment(s): Father at the age of 67yrs from pneumonia Medications and Allergies Home Medications Medication Instructions Recorded Confirmed Type Fenofibrate [Lofibra] 160 mg PO DAILY #30 tab 03/23/19 03/28/21 Rx Atorvastatin [Lipitor] 80 mg PO DAILY 06/25/19 03/28/21 History INSULIN ASPART (NovoLOG) [NovoLOG 18 unit SQ TID-W/MEALS 06/25/19 03/28/21 History (formulary)] lisinopriL 40 mg PO DAILY 09/24/20 03/28/21 History metFORMIN HCL [Glucophage] 500 mg PO DAILY 09/24/20 03/28/21 History traZODone HCL 50 - 100 mg PO HS PRN 01/11/21 03/28/21 History Insulin Detemir (Levemir) [Levemir] 20 unit SQ DAILY 02/17/21 03/28/21 History Ergocalciferol (Vitamin D2) 1,250 mcg PO TU 03/03/21 03/28/21 History [Drisdol (50,000 Iu)] traMADol HCL 50 mg PO Q6H PRN 03/03/21 03/28/21 History Esomeprazole Magnesium [NexIUM] 20 mg PO DAILY 03/28/21 03/28/21 History Allergies Allergy/AdvReac Type Severity Reaction Status Date / Time levofloxacin [From Levaquin] Allergy Unknown Verified 03/28/21 17:15 Physical Exam Vitals: Vital Signs Temp Pulse Pulse Resp BP BP Pulse Ox 03/29/21 07:49 99.5 F 79 16 115/86 03/29/21 06:06 83 20 100/83 92 L 03/29/21 01:06 80 22 105/58 95 03/28/21 22:19 84 22 107/60 92 L 03/28/21 20:34 99 F 82 16 120/63 92 L 03/28/21 19:16 81 03/28/21 18:52 80 03/28/21 17:24 100.1 F H 75 22 105/43 93 L 03/28/21 14:43 98.7 F 77 18 148/64 96 Intake and Output 03/28/21 03/29/21 03/29/21 22:59 06:59 14:59 Intake Total 21.475 67.939 17.638 Balance 21.475 67.939 17.638 Intake: Intake, IV Titration 21.475 67.939 17.638 Amount Insulin Regular 100 unit 21.475 67.939 17.638 In Sodium Chloride 0.9% 100 ml @ 0.1 UNITS/KG/HR 10.399 mls/hr IV .[id number] [facility] Rx#:[id number] Other: Weight 102.965 kg Results - Lab Results Most recent lab results Calcium 8.8 mg/dL (8.4-10.2) 03/29/21 05:40 Phosphorus 5.3 mg/dL (2.5-4.5) H 03/29/21 05:40 03/28/21 15:46 03/29/21 05:40 Assessment and Plan Plan: Assessment: 1. Acute kidney injury secondary to ATN secondary to hypovolemia from DKA. Creatinine peaked at 2.2 this admission and was 2.08 this morning. Baseline creatinine near 1. No hydronephrosis noted on CAT scan. 2. DKA maintained on insulin drip and IV fluids. 3. Hyperkalemia secondary to acute kidney injury, acidosis and lisinopril. Improved. 4. Metabolic acidosis secondary to acute kidney injury and DKA. Plan: Maintain D5W with 2 A of bicarb to be run at 100 mL an hour. Continue to hold lisinopril and metformin. Repeat BMP this afternoon. Continue to monitor renal function and urine output. Thank you for the consultation. I will continue to follow the patient with you during her hospital stay
[2021-03-29 09:36] LABS: Glucose,Whole Blood 195 mg/dL (75-99)
[2021-03-29 10:41] LABS: Glucose,Whole Blood 213 mg/dL (75-99)
[2021-03-29 11:45] LABS: Glucose,Whole Blood 240 mg/dL (75-99)
[2021-03-29 13:09] LABS: Glucose,Whole Blood 234 mg/dL (75-99)
[2021-03-29] MEDS: INSULIN ASPART (NovoLOG) 100 UNIT/ML VIAL SQ SCH ×2 (13:54→18:32)
[2021-03-29] MEDS: INSULIN DETEMIR (LEVEMIR) 100 UNIT/ML SYR SQ SCH (14:23)
[2021-03-29 14:24] LABS: Glucose,Whole Blood 208 mg/dL (75-99)
[2021-03-29] MEDS: HYDROmorphone 1 MG/ML 1 ML SYRINGE IVP PRN ×3 (14:49→22:10)
[2021-03-29 16:13] LABS: Calcium 8.7 mg/dL (8.4-10.2); Magnesium 1.7 mg/dL (1.6-2.3); Potassium 5.7 mmol/L (3.5-5.1)
[2021-03-29] MEDS: SODIUM CHLORIDE 0.9% 1,000 ML IV SCH ×2 (16:29→22:02)
[2021-03-29] MEDS ORDERED: INSULIN REGULAR 100 UNIT/ML VIAL (IV) IV ONE ×2 (17:00→21:45)
[2021-03-29 17:45] LABS: Glucose,Whole Blood 228 mg/dL (75-99)
[2021-03-29 19:55] LABS: Glucose,Whole Blood 248 mg/dL (75-99)
[2021-03-29 21:14] LABS: Calcium 8.6 mg/dL (8.4-10.2); Potassium 6.6 mmol/L (3.5-5.1)
[2021-03-29] MEDS ORDERED: SODIUM ZIRCONIUM CYCLOSILICATE 10 GM PACKET PO ONE (21:30)
[2021-03-29] MEDS ORDERED: DEXTROSE 50% SYRINGE 50 ML IVP STA (21:33)
[2021-03-29] MEDS ORDERED: SODIUM CHLORIDE 0.9% 500 ML 500 ML IV ONE (21:37)
[2021-03-29] MEDS ORDERED: CALCIUM GLUCONATE 1 GM in SODIUM CHLORIDE 0.9% 100 ML IVPB ONE (22:00)
[2021-03-29] MEDS: IPRATROPIUM-ALBUTEROL 3 ML NEB INHALATION SCH (23:35)
[2021-03-30 02:09] LABS: Calcium 8.7 mg/dL (8.4-10.2); Potassium 5.2 mmol/L (3.5-5.1)
[2021-03-30] MEDS: HYDROmorphone 1 MG/ML 1 ML SYRINGE IVP PRN ×6 (03:06→23:51)
[2021-03-30 05:58] LABS: Glucose,Whole Blood 259 mg/dL (75-99)
[2021-03-30] MEDS: INSULIN ASPART (NovoLOG) 100 UNIT/ML VIAL SQ SCH ×4 (06:46→19:54)
[2021-03-30] MEDS: SODIUM CHLORIDE 0.9% 1,000 ML IV SCH ×2 (06:47→17:46)
[2021-03-30] MEDS: INSULIN DETEMIR (LEVEMIR) 100 UNIT/ML SYR SQ SCH (06:47)
[2021-03-30] MEDS ORDERED: INSULIN DETEMIR (LEVEMIR) 100 UNIT/ML SYR SQ SCH (07:00)
[2021-03-30 07:11] LABS: Calcium 8.8 mg/dL (8.4-10.2); Magnesium 1.8 mg/dL (1.6-2.3); Potassium 5.7 mmol/L (3.5-5.1)
[2021-03-30] MEDS: IPRATROPIUM-ALBUTEROL 3 ML NEB INHALATION SCH ×4 (08:45→19:45)
[2021-03-30] MEDS ORDERED: lisinopriL 20 MG TAB PO SCH (09:00)
[2021-03-30] MEDS: FENOFIBRATE 160 MG TAB PO SCH (09:25)
[2021-03-30] MEDS: PANTOPRAZOLE 40 MG/10 ML VIAL IV SCH (09:25)
[2021-03-30 11:03] LABS: Anisocytosis Slight; Basophils % (A) 0 %; Eosinophils # (A) 0.1 k/uL (0-0.7); Eosinophils % (A) 1 %; HCT 37.5 % (34.0-46.0); HGB 11.1 gm/dL (11.4-16.0); Hypochromasia Marked; Lymphocytes # (A) 1.3 k/uL (1.0-4.8); Lymphocytes % (A) 11 %; MCH 26.7 pg (25.0-35.0); MCHC 29.7 g/dL (31.0-37.0); Mean Platelet Volume 7.9; Monocytes # (A) 0.6 k/uL (0-1.0); Monocytes % (A) 5 %; Neutrophils # (A) 9.5 k/uL (1.3-7.7); Neutrophils % (A) 81 %; Platelet Count 457 k/uL (150-450); RBC 4.17 m/uL (3.80-5.40); RDW 17.2 % (11.5-15.5); WBC 11.7 k/uL (3.8-10.6)
[2021-03-30 11:06] LABS: Total Bilirubin 0.6 mg/dL (0.2-1.3); Total Protein 5.9 g/dL (6.3-8.2)
[2021-03-30 11:24] VITALS: BMI 44.5
[2021-03-30 11:53] LABS: Glucose,Whole Blood 263 mg/dL (75-99)
[2021-03-30] MEDS ORDERED: SODIUM ZIRCONIUM CYCLOSILICATE 10 GM PACKET PO ONE (13:07)
--- NOTE | 2021-03-30 13:09 | P.PN ---
Subjective Progress Note Date: 03/30/21 Follow-up for acute kidney injury and hyperkalemia. Objective - Vital Signs Vital signs: Vital Signs Temp 98.7 F 03/30/21 04:00 Pulse 80 03/30/21 11:48 Resp 18 03/30/21 04:00 BP 102/75 03/30/21 04:00 Pulse Ox 97 03/30/21 04:00 Intake & Output 03/29/21 03/30/21 03/30/21 18:59 06:59 18:59 Intake Total 970.561 118 Output Total 800 775 550 Balance 170.561 -775 432 Weight 102.965 kg 103.5 kg 103.5 kg Intake: IV 736.26 Dextrose 5% in Water 1, 700 000 ml @ 100 mls/hr IV . Q11H [facility] with Sodium Bicarb (1 Meq/ml) 100 ml Rx#:[id number] Insulin Regular 100 unit 36.26 In Sodium Chloride 0.9% 100 ml @ 0.1 UNITS/KG/HR 10.399 mls/hr IV .[id number] [facility] Rx#:[id number] Intake, IV Titration 34.301 Amount Insulin Regular 100 unit 34.301 In Sodium Chloride 0.9% 100 ml @ 0.1 UNITS/KG/HR 10.399 mls/hr IV .Q9H43M [facility] Rx#:[id number] Oral 200 118 Output: Urine 800 775 550 Other: Voiding Method Indwelling Catheter Indwelling Catheter - Exam No acute distress S1-S2 heard Lungs clear No edema - Labs CBC & Chem 7: 03/30/21 05:46 03/30/21 05:46 Labs: Abnormal Lab Results - Last 24 Hours (Table) 03/29/21 03/29/21 03/29/21 Range/Units 13:08 14:22 15:47 WBC (3.8-10.6) k/uL Hgb (11.4-16.0) gm/dL MCHC (31.0-37.0) g/dL RDW (11.5-15.5) % Plt Count (150-450) k/uL Neutrophils # (1.3-7.7) k/uL Sodium 136 L (137-145) mmol/L Potassium 5.7 H (3.5-5.1) mmol/L BUN 45 H (7-17) mg/dL Creatinine 1.82 H (0.52-1.04) mg/dL Glucose 229 H (74-99) mg/dL POC Glucose (mg/dL) 234 H 208 H (75-99) mg/dL AST (14-36) U/L Total Protein (6.3-8.2) g/dL Albumin (3.5-5.0) g/dL Lipase (23-300) U/L 03/29/21 03/29/21 03/29/21 Range/Units 17:44 19:44 20:47 WBC (3.8-10.6) k/uL Hgb (11.4-16.0) gm/dL MCHC (31.0-37.0) g/dL RDW (11.5-15.5) % Plt Count (150-450) k/uL Neutrophils # (1.3-7.7) k/uL Sodium 135 L (137-145) mmol/L Potassium 6.6 H* (3.5-5.1) mmol/L BUN 49 H (7-17) mg/dL Creatinine 1.90 H (0.52-1.04) mg/dL Glucose 259 H (74-99) mg/dL POC Glucose (mg/dL) 228 H 248 H (75-99) mg/dL AST (14-36) U/L Total Protein (6.3-8.2) g/dL Albumin (3.5-5.0) g/dL Lipase (23-300) U/L 03/30/21 03/30/21 03/30/21 Range/Units 01:25 05:46 05:46 WBC 11.7 H (3.8-10.6) k/uL Hgb 11.1 L (11.4-16.0) gm/dL MCHC 29.7 L (31.0-37.0) g/dL RDW 17.2 H (11.5-15.5) % Plt Count 457 H (150-450) k/uL Neutrophils # 9.5 H (1.3-7.7) k/uL Sodium 135 L (137-145) mmol/L Potassium 5.2 H 5.7 H (3.5-5.1) mmol/L BUN 48 H 44 H (7-17) mg/dL Creatinine 1.65 H 1.47 H (0.52-1.04) mg/dL Glucose 218 H 268 H (74-99) mg/dL POC Glucose (mg/dL) (75-99) mg/dL AST 43 H (14-36) U/L Total Protein 5.9 L (6.3-8.2) g/dL Albumin 3.0 L (3.5-5.0) g/dL Lipase 1974 H (23-300) U/L 03/30/21 03/30/21 Range/Units 05:57 11:51 WBC (3.8-10.6) k/uL Hgb (11.4-16.0) gm/dL MCHC (31.0-37.0) g/dL RDW (11.5-15.5) % Plt Count (150-450) k/uL Neutrophils # (1.3-7.7) k/uL Sodium (137-145) mmol/L Potassium (3.5-5.1) mmol/L BUN (7-17) mg/dL Creatinine (0.52-1.04) mg/dL Glucose (74-99) mg/dL POC Glucose (mg/dL) 259 H 263 H (75-99) mg/dL AST (14-36) U/L Total Protein (6.3-8.2) g/dL Albumin (3.5-5.0) g/dL Lipase (23-300) U/L Assessment and Plan Assessment: #1 acute kidney injury secondary to volume depletion from diabetic ketoacidosis. #2 hyperkalemia secondary to acidosis/acute kidney injury. #3 diabetes with DKA #4 anion gap metabolic acidosis Plan: #1 renal function improving. #2 more dose of lokelma today. #3 labs in the morning
--- NOTE | 2021-03-30 14:59 | XR ---
EXAMINATION TYPE: XR chest 2V DATE OF EXAM: 03/30/2021 COMPARISON: Chest x-ray 02/17/2021 HISTORY: Shortness of breath TECHNIQUE: Frontal and lateral views of the chest are obtained. FINDINGS: There is some minimal patchy density at the left lung base, costophrenic angle level, no e vident effusion or pneumothorax. The cardiac silhouette size is within normal limits. Exam is expir atory and rotated. The osseous structures are intact. IMPRESSION: Correlate for pneumonia versus lingular or left lower lobe atelectasis, expiratory rotat ed exam, follow-up suggested
[2021-03-30 16:52] LABS: Glucose,Whole Blood 322 mg/dL (75-99)
--- NOTE | 2021-03-30 18:43 | PN ---
PROGRESS NOTE DATE OF SERVICE: 03/29/2021 CHIEF COMPLAINT: Pancreatitis. HISTORY OF PRESENT ILLNESS: This lady is still having quite a bit of abdominal pain. She is not vomiting. PHYSICAL EXAMINATION: She is still very tender over the epigastrium. Chest is clear. Cardiac exam is normal. IMPRESSION: 1. Acute pancreatitis. 2. Insulin-dependent diabetes mellitus. 3. Hypertriglyceridemia. PLAN: Continue with IV fluids and analgesics. MMODL / IJN: [id number] /
--- NOTE | 2021-03-30 18:43 | PN ---
PROGRESS NOTE DATE OF SERVICE: 03/30/2021 CHIEF COMPLAINT: Pancreatitis. HISTORY OF PRESENT ILLNESS: This lady's pain continues. She has had no fever or vomiting. PHYSICAL EXAMINATION: Her chest is clear. The cardiac exam is normal. The abdomen is protuberant and tender over the upper quadrants. IMPRESSION: 1. Chronic relapsing pancreatitis. 2. Uncontrolled diabetes. 3. Hypertriglyceridemia. PLAN: Continue with analgesics and IV fluids. MMODL / IJN: [id number] /
--- NOTE | 2021-03-30 18:58 | HP ---
HISTORY AND PHYSICAL CHIEF COMPLAINT: Acute epigastric pain. HISTORY OF PRESENT ILLNESS: This is another admission for this 50-year-old white female, poorly-controlled diabetic, who has been in and out of the hospital for episodes of pancreatitis likely related to her hypertriglyceridemia, which is at times severe. She presented with epigastric pain and elevated lipase with vomiting. REVIEW OF SYSTEMS: She has had no chest pain, fever, chills, melena, hematochezia, diarrhea, etc. Past medical history, family history and personal and social histories are all otherwise unremarkable and unchanged from her recent admitting and discharge summaries. PHYSICAL EXAMINATION: Blood pressure is 104/68 with a pulse of 98, respirations of 32 and she is afebrile. In general, she appeared to be overweight and uncomfortable. Skin was dry. Skin color is normal. HEENT: Head, ears, eyes, nose, mouth and throat were normal. CHEST is clear to auscultation. CARDIAC exam is normal. ABDOMEN was protuberant, soft and very tender over the epigastrium. No masses. Bowel sounds are heard. EXTREMITIES: Normal. NEUROLOGICALLY she is intact. IMPRESSION: She is admitted to the hospital with diagnoses of: 1. Chronic relapsing pancreatitis. 2. Hypertriglyceridemia. 3. Poorly controlled insulin-dependent diabetes mellitus. 4. Obesity. PLAN: 1. Bedrest. 2. IV fluids. 3. Analgesics and antiemetics. MMODL / IJN: [id number] /
[2021-03-30] MEDS: traZODone HCL 50 MG TAB PO PRN (19:59)
[2021-03-30 21:05] LABS: Glucose,Whole Blood 128 mg/dL (75-99)
[2021-03-31] MEDS: HYDROmorphone 1 MG/ML 1 ML SYRINGE IVP PRN ×6 (04:16→21:12)
[2021-03-31] MEDS: SODIUM CHLORIDE 0.9% 1,000 ML IV SCH ×2 (05:44→12:39)
[2021-03-31 06:16] LABS: Glucose,Whole Blood 248 mg/dL (75-99)
[2021-03-31] MEDS: INSULIN DETEMIR (LEVEMIR) 100 UNIT/ML SYR SQ SCH (06:21)
[2021-03-31] MEDS: IPRATROPIUM-ALBUTEROL 3 ML NEB INHALATION SCH ×2 (07:23→11:21)
[2021-03-31] MEDS: PANTOPRAZOLE 40 MG/10 ML VIAL IV SCH (07:53)
[2021-03-31] MEDS: INSULIN ASPART (NovoLOG) 100 UNIT/ML VIAL SQ SCH ×7 (07:53→21:07)
[2021-03-31] MEDS: FENOFIBRATE 160 MG TAB PO SCH (07:54)
[2021-03-31 11:25] LABS: Glucose,Whole Blood 183 mg/dL (75-99)
--- NOTE | 2021-03-31 12:24 | P.PN ---
Subjective Progress Note Date: 03/31/21 Follow-up for acute kidney injury and hyperkalemia. Objective - Vital Signs Vital signs: Vital Signs Temp 98.6 F 03/31/21 08:00 Pulse 64 03/31/21 11:31 Resp 18 03/31/21 08:00 BP 128/48 03/31/21 08:00 Pulse Ox 93 L 03/31/21 08:00 Intake & Output 03/30/21 03/31/21 03/31/21 18:59 06:59 18:59 Intake Total 118 540 118 Output Total 1550 300 600 Balance -1432 240 -482 Weight 103.5 kg Intake: Intake, IV Titration 320 Amount Sodium Chloride 0.9% 1, 320 000 ml @ 80 mls/hr IV . [id number] [facility] Rx#:[id number] Oral 118 220 118 Output: Urine 1550 300 600 Other: Voiding Method Indwelling Catheter Indwelling Catheter - Exam No acute distress S1-S2 heard Lungs clear No edema - Labs CBC & Chem 7: 03/30/21 05:46 03/30/21 05:46 Labs: Abnormal Lab Results - Last 24 Hours (Table) 03/30/21 03/30/21 03/31/21 Range/Units 16:51 19:54 06:13 POC Glucose (mg/dL) 322 H 128 H 248 H (75-99) mg/dL 03/31/21 Range/Units 11:23 POC Glucose (mg/dL) 183 H (75-99) mg/dL Assessment and Plan Assessment: #1 acute kidney injury secondary to volume depletion from diabetic ketoacidosis. #2 hyperkalemia secondary to acidosis/acute kidney injury. #3 diabetes with DKA #4 anion gap metabolic acidosis Plan: #1 no new labs today. #2 status post kelny yesterday. Repeat labs for tomorrow #3 renal function stable good urine output.
--- NOTE | 2021-03-31 15:50 | PN ---
PROGRESS NOTE DATE OF SERVICE: 03/31/2021 CHIEF COMPLAINT: Pancreatitis. HISTORY OF PRESENT ILLNESS: This lady is not responding quickly. She continues to have very high lipase and she still is very tender over the epigastrium. She has had no vomiting, fever, chills, etc. PHYSICAL EXAMINATION: Her chest is clear. Cardiac exam is normal. She has generalized upper abdominal tenderness with guarding. Bowel sounds are present. IMPRESSION: 1. Pancreatitis. 2. Uncontrolled diabetes. PLAN: 1. Change insulin management. 2. Repeat lipase and electrolytes and continue to follow abdominal pain and her pancreatitis. MMODL / IJN: [id number] /
[2021-03-31 16:30] LABS: Glucose,Whole Blood 186 mg/dL (75-99)
[2021-03-31 17:04] LABS: Potassium 5.8 mmol/L (3.5-5.1)
[2021-03-31] MEDS ORDERED: SODIUM ZIRCONIUM CYCLOSILICATE 10 GM PACKET PO ONE (18:45)
[2021-03-31 21:11] LABS: Glucose,Whole Blood 181 mg/dL (75-99)
[2021-03-31] MEDS: traZODone HCL 50 MG TAB PO PRN (21:13)
[2021-04-01] MEDS: HYDROmorphone 1 MG/ML 1 ML SYRINGE IVP PRN ×6 (00:32→20:12)
[2021-04-01] MEDS: SODIUM CHLORIDE 0.9% 1,000 ML IV SCH ×2 (04:49→11:40)
[2021-04-01 05:42] LABS: Glucose,Whole Blood 205 mg/dL (75-99)
[2021-04-01] MEDS: INSULIN DETEMIR (LEVEMIR) 100 UNIT/ML SYR SQ SCH (06:11)
[2021-04-01 06:55] LABS: African American GFR (CKD) >90 (>60 ml/min/1.73 sqM); Anion Gap 11 mmol/L; Blood Urea Nitrogen 17 mg/dL (7-17); Calcium 8.7 mg/dL (8.4-10.2); Carbon Dioxide 25 mmol/L (22-30); Chloride 99 mmol/L (98-107); Glucose 220 mg/dL (74-99); Lipase 1074 U/L (23-300); Non-African American GFR(CKD) 79 (>60 ml/min/1.73 sqM); Potassium 4.8 mmol/L (3.5-5.1); Sodium 135 mmol/L (137-145)
[2021-04-01] MEDS: PANTOPRAZOLE 40 MG/10 ML VIAL IV SCH (08:03)
[2021-04-01] MEDS: FENOFIBRATE 160 MG TAB PO SCH (08:04)
[2021-04-01] MEDS: INSULIN ASPART (NovoLOG) 100 UNIT/ML VIAL SQ SCH ×7 (08:04→20:59)
[2021-04-01 11:31] LABS: Glucose,Whole Blood 314 mg/dL (75-99)
--- NOTE | 2021-04-01 13:33 | PN ---
PROGRESS NOTE Patient is seen for followup for hyperkalemia. Her potassium has improved to 4.8 today. Renal function has improved as well with creatinine down to 0.8 now. Patient has good urine output. EXAMINATION: Today blood pressure 100/45, heart rate 64 per minute. She is afebrile. Examination of the heart S1, S2. Examination of the lungs, bilateral breath sounds are heard. Abdomen is soft, obese. Examination of lower extremities, 1+ edema. MACH[employer]CH[employer]ICIAN exam grossly intact. LAB: Show sodium 135, potassium 4.8, BUN 17, creatinine 0.87. Lipase is 1074. ASSESSMENT: 1. Acute kidney injury secondary to volume depletion, currently improved. 2. Hyperkalemia associated with acute kidney injury, metabolic acidosis, now resolved. 3. Diabetic ketoacidosis on admission, currently resolved. 4. Metabolic acidosis associated with DKA. PLAN: Control blood sugars as that will potentiate the hyperkalemia. Continue to avoid NSAIDs and BRANDIE inhibitors. Repeat labs in a.m. MMODL / IJN: [id number] /
[2021-04-01 17:00] LABS: Glucose,Whole Blood 217 mg/dL (75-99)
[2021-04-01] MEDS: HYDROcodone/APAP 5-325MG 1 EACH TAB PO PRN (17:08)
[2021-04-01 17:33] LABS: Anisocytosis Slight; Basophils % (A) 0 %; Eosinophils # (A) 0.3 k/uL (0-0.7); Eosinophils % (A) 3 %; HCT 34.3 % (34.0-46.0); HGB 10.5 gm/dL (11.4-16.0); Hypochromasia Moderate; Lymphocytes # (A) 1.6 k/uL (1.0-4.8); Lymphocytes % (A) 15 %; MCH 27.1 pg (25.0-35.0); MCHC 30.6 g/dL (31.0-37.0); MCV 88.7 fL (80.0-100.0); Mean Platelet Volume 7.3; Monocytes # (A) 0.5 k/uL (0-1.0); Monocytes % (A) 5 %; Neutrophils # (A) 8.3 k/uL (1.3-7.7); Neutrophils % (A) 76 %; Platelet Count 550 k/uL (150-450); RBC 3.87 m/uL (3.80-5.40); RDW 16.4 % (11.5-15.5)
--- NOTE | 2021-04-01 17:33 | PN ---
PROGRESS NOTE DATE OF SERVICE: 04/01/2021 CHIEF COMPLAINT: Pancreatitis. HISTORY OF PRESENT ILLNESS: This lady is still having a lot of pain, and she states that it is not alleviated with Dilaudid. She reports that she has gotten better relief from Vicodin in the past, and this will be changed. She is running a low-grade fever as well. Her lipase is trending down slightly. PHYSICAL EXAMINATION: Skin color is normal. She is awake and alert. Chest is clear. Cardiac exam is normal. She is mixing machine tender over the epigastrium. Bowel sounds are present. IMPRESSION: 1. Chronic relapsing pancreatitis. 2. Fever of unknown origin. PLAN: 1. Repeat blood work. 2. Blood culture. 3. CT of the abdomen. MMODL / IJN: [id number] /
--- NOTE | 2021-04-01 17:57 | CT ---
EXAMINATION TYPE: CT abdomen pelvis wo con DATE OF EXAM: 04/01/2021 COMPARISON: 03/28/2021 and abdomen pelvis 04/29/2019 HISTORY: 50-year-old female with abdominal pain and fever CT DLP: 1354.1 mGycm. Automated exposure control for dose reduction was used. TECHNIQUE: Contiguous axial scanning of the abdomen and pelvis without IV contrast. Coronal and sagit ginette reconstructions performed. FINDINGS: Heart borderline in size. Patchy atelectasis at the left base. Stable 6 mm peripheral right basilar p ulmonary nodule back to at least 04/29/2019 suggesting a benign etiology. No pleural effusion. Again, hepatomegaly measuring 21.8 cm craniocaudal. Fullness of the gallbladder but no bert hydrops. Adrenal glands and spleen within normal limits. Diffuse peripancreatic edema and retroperitoneal edema and fat stranding. Mild retroperitoneal fluid slightly increased from prior. Some possible early focal fluid along the posterior aspect of the panc reatic body measuring 2.1 cm, axial image 36. A view punctate 1 to 2 mm renal calculi. No hydronephrosis. Nonspecific mild perinephric edema. No dilated small bowel or free air. No intraperitoneal free fluid seen. Appendix is normal. Residual oral contrast within the colon with mild overriding. No pericolonic infl ammatory change. Bladder is collapsed with Urbano catheter demonstrated. Patulous left greater than right inguinal freda ls. Uterus is anteverted. Both ovaries are visualized. No abnormal fluid collection in the pelvis or pelvic lymphadenopathy. Bones: Facet arthropathy lower lumbar spine. IMPRESSION: 1. Redemonstrated changes of acute pancreatitis with generalized parenchymal edema and fat stranding . Mild retroperitoneal fluid has slightly increased from prior and there is a possible early focal fl uid collection along the posterior aspect of the pancreatic body measuring 2.1 cm. 2. Redemonstrated hepatomegaly 21.8 cm. 3. Incidental: Punctate nonobstructive 1 to 2 mm renal calculi.
[2021-04-01 18:01] LABS: ALT 19 U/L (4-34); AST 40 U/L (14-36); African American GFR (CKD) >90 (>60 ml/min/1.73 sqM); Albumin 2.9 g/dL (3.5-5.0); Alkaline Phosphatase 90 U/L (38-126); Anion Gap 10 mmol/L; Blood Urea Nitrogen 14 mg/dL (7-17); Calcium 8.8 mg/dL (8.4-10.2); Carbon Dioxide 25 mmol/L (22-30); Chloride 97 mmol/L (98-107); Glucose 239 mg/dL (74-99); Non-African American GFR(CKD) 79 (>60 ml/min/1.73 sqM); Potassium 4.8 mmol/L (3.5-5.1); Sodium 132 mmol/L (137-145); Total Bilirubin 0.3 mg/dL (0.2-1.3); Total Protein 5.9 g/dL (6.3-8.2)
[2021-04-01 20:24] LABS: Glucose,Whole Blood 199 mg/dL (75-99)
[2021-04-02] MEDS: HYDROmorphone 1 MG/ML 1 ML SYRINGE IVP PRN ×7 (00:23→22:29)
[2021-04-02 07:19] LABS: Glucose,Whole Blood 336 mg/dL (75-99)
[2021-04-02] MEDS: INSULIN DETEMIR (LEVEMIR) 100 UNIT/ML SYR SQ SCH ×2 (07:57→21:02)
[2021-04-02] MEDS: PANTOPRAZOLE 40 MG/10 ML VIAL IV SCH (07:57)
[2021-04-02] MEDS: INSULIN ASPART (NovoLOG) 100 UNIT/ML VIAL SQ SCH ×7 (07:57→21:03)
[2021-04-02] MEDS: FENOFIBRATE 160 MG TAB PO SCH (07:58)
[2021-04-02] MEDS: SODIUM CHLORIDE 0.9% 1,000 ML IV SCH ×2 (09:21→21:01)
[2021-04-02 11:42] LABS: Glucose,Whole Blood 250 mg/dL (75-99)
--- NOTE | 2021-04-02 13:01 | PN ---
PROGRESS NOTE CHIEF COMPLAINT: Pancreatitis. HISTORY OF PRESENT ILLNESS: This lady is experiencing more difficulty. Temperature has been up slightly and her pain is about the same. Lipase is still quite high. CT of the abdomen suggests fluid accumulation around the pancreas. There is concern that there is now secondary infection and possibly a developing necrotic pancreatitis. PHYSICAL EXAMINATION: Her chest is clear. The cardiac exam is normal. The abdomen is protuberant and coke still cleaner. IMPRESSION: 1. Possible necrotizing pancreatitis with secondary infection. 2. Uncontrolled diabetes. PLAN: 1. Increase Levemir from 40 to 60 units. 2. Consult with Infectious Disease. MMODL / IJN: [id number] /
[2021-04-02 17:23] LABS: Glucose,Whole Blood 222 mg/dL (75-99)
[2021-04-02 20:19] LABS: Glucose,Whole Blood 256 mg/dL (75-99)
--- NOTE | 2021-04-02 23:46 | P.CONS ---
History of Present Illness - Reason for Consult Consult date: 04/02/21 FUO Requesting physician: Guillermo Cerda - Chief Complaint abd pain x 5 days - History of Present Illness History of present illness : Patient is 50-year-old female with a past medical history significant for an episode of pancreatitis back in 2010 patient mention no etiology was found for that episode patient presenting to the [facility] 5 days ago for evaluation of abdominal pain which has been mostly in the left upper abdominal area that started the day of presentation to the hospital patient was describing the pain to be sharp almost 10 out of 10 in severity and did have [place] vomited and was complaining of nausea afterwards patient did have a low-grade fever 100.1 on 03/28/2021 and subsequently to spike another fever on the of 100.1 F since then the patient has low-grade fever of 99.4 patient did have a white count of 20,000 on the patient has came down to 11,000 as of yesterday patient amylase was 238 and lipase was 8419 and is down to 1074 patient AST is mildly elevated urine is negative díaz PCR was negative patient did have a CT abdominal pelvis on admission retroperitoneal fat stranding and edema consistent with acute pancreatitis gallbladder was intact but is not dilated fatty infiltration of the liver patient also have a CT abdominal pelvis completed yesterday evening diffuse peripancreatic edema retroperitoneal edema and fat stranding mild retroperitoneal fluid and he was consulted today for FUO patient seem to be doing overall better abdominal pain has decreased intensity on about 6 out of 10 no further vomiting no diarrhea no chest pain shortness with a cough and no urinary symptoms Review of system: CONSTITUTIONAL: Positive for weakness along with the low-grade fever. EYES: No complaint. ENT: No complaint. RESPIRATORY: No complaint. CARDIOVASCULAR: No complaint. GENITOURINARY: No complaint. GASTROINTESTINAL: As per history of present illness MUSCULOSKELETAL: No complaint. INTEGUMENTARY: No complaint. PSYCHOLOGIC: No complaint. ENDOCRINE: No complaint. NEUROLOGIC: No complaint. Past medical history : Reviewed, documented below Past surgical history : Reviewed, documented below Social history: Reviewed, documented below Medications: Reviewed, as documented below EXAMINATION: Vital sigans= Reviewed and documented below GENERAL DESCRIPTION: Middle-aged female lying in bed, no distress. No tachypnea or accessory muscle of respiration use. HEENT: Shows Pallor , no scleral icterus. Oral mucous membrane is dry. NECK: Trachea central, no thyromegaly. LUNGS: Unlabored breathing. Clear to auscultation anteriorly. No wheeze or crackle. HEART: S1, S2, regular rate and rhythm. ABDOMEN: Soft, mild epigastric tenderness ,no guarding or rigidity EXTREMITIES: No edema of feet. SKIN: No rash, no masses palpable. NEUROLOGICAL: The patient is awake, alert, oriented x3, mood and affect normal. LABS AND RADIOLOGY: Reviewed results see below Assessment : Patient with low-grade fever and elevated white count in this patient presented to hospital 5 days ago with epigastric abdominal pain and secondary acute pancreatitis with repeat CAT scan done yesterday showing possible formation of pancreatic pseudocyst and more likely responsible for this low-grade fever however the patient overall symptoms are improving without antibiotic therapy more likely not dealing with an infected pancreatic pseudocyst and currently no other obvious focus of infection Plan: 1-blood culture CRP and procalcitonin be obtained to complete the work-up 2-we will also check triglyceride levels 3-IV fluid bowel rest and pain control per primary We will follow on clinical condition and cultures to further adjust medication if needed Thank you for this consultation we will follow the patient along with you Past Medical History Past Medical History: Diabetes Mellitus, GERD/Reflux, Hyperlipidemia, Hypertension, Syncope Additional Past Medical History / Comment(s): Pancreatitis twice, IDDM type II, UTI, chronic low back pain, bulging discs, dental abscesses in past. History of Any Multi-Drug Resistant Organisms: None Reported Past Surgical History: Tubal Ligation Additional Past Surgical History / Comment(s): Age 7 had VSD repair Past Anesthesia/Blood Transfusion Reactions: No Reported Reaction Smoking Status: Current every day smoker - Past Family History Mother Family Medical History: No Reported History Additional Family Medical History / Comment(s): Mother was healthy. She is , pt cannot recall cause of . Father Family Medical History: Pneumonia Additional Family Medical History / Comment(s): Father at the age of 67yrs from pneumonia Medications and Allergies Home Medications Medication Instructions Recorded Confirmed Type Fenofibrate [Lofibra] 160 mg PO DAILY #30 tab 03/23/19 03/28/21 Rx Atorvastatin [Lipitor] 80 mg PO DAILY 06/25/19 03/28/21 History INSULIN ASPART (NovoLOG) [NovoLOG 18 unit SQ TID-W/MEALS 06/25/19 03/28/21 History (formulary)] lisinopriL 40 mg PO DAILY 09/24/20 03/28/21 History metFORMIN HCL [Glucophage] 500 mg PO DAILY 09/24/20 03/28/21 History traZODone HCL 50 - 100 mg PO HS PRN 01/11/21 03/28/21 History Insulin Detemir (Levemir) [Levemir] 20 unit SQ DAILY 02/17/21 03/28/21 History Ergocalciferol (Vitamin D2) 1,250 mcg PO TU 03/03/21 03/28/21 History [Drisdol (50,000 Iu)] traMADol HCL 50 mg PO Q6H PRN 03/03/21 03/28/21 History Esomeprazole Magnesium [NexIUM] 20 mg PO DAILY 03/28/21 03/28/21 History Allergies Allergy/AdvReac Type Severity Reaction Status Date / Time levofloxacin [From [facility]] Allergy Unknown Verified 03/28/21 17:15 Physical Exam Vitals: Vital Signs Temp Pulse Resp BP Pulse Ox 04/02/21 11:10 99.4 F 63 16 123/64 92 L 04/02/21 04:24 99.1 F 64 16 135/74 93 L 04/01/21 21:00 99.0 F 70 16 136/72 95 Intake and Output 04/02/21 04/02/21 04/02/21 06:59 14:59 22:59 Other: Voiding Method Toilet Weight 102 kg Results CBC & Chem 7: 04/01/21 17:11 04/01/21 17:11 Labs: Abnormal Lab Results - Last 24 Hours (Table) 04/01/21 04/01/21 04/01/21 Range/Units 16:51 17:11 17:11 WBC 11.0 H (3.8-10.6) k/uL Hgb 10.5 L (11.4-16.0) gm/dL MCHC 30.6 L (31.0-37.0) g/dL RDW 16.4 H (11.5-15.5) % Plt Count 550 H (150-450) k/uL Neutrophils # 8.3 H (1.3-7.7) k/uL Sodium 132 L (137-145) mmol/L Chloride 97 L (98-107) mmol/L Glucose 239 H (74-99) mg/dL POC Glucose (mg/dL) 217 H (75-99) mg/dL AST 40 H (14-36) U/L Total Protein 5.9 L (6.3-8.2) g/dL Albumin 2.9 L (3.5-5.0) g/dL 04/01/21 04/02/21 04/02/21 Range/Units 20:23 07:16 11:41 WBC (3.8-10.6) k/uL Hgb (11.4-16.0) gm/dL MCHC (31.0-37.0) g/dL RDW (11.5-15.5) % Plt Count (150-450) k/uL Neutrophils # (1.3-7.7) k/uL Sodium (137-145) mmol/L Chloride (98-107) mmol/L Glucose (74-99) mg/dL POC Glucose (mg/dL) 199 H 336 H 250 H (75-99) mg/dL AST (14-36) U/L Total Protein (6.3-8.2) g/dL Albumin (3.5-5.0) g/dL
[2021-04-03] MEDS: HYDROmorphone 1 MG/ML 1 ML SYRINGE IVP PRN ×6 (01:31→20:20)
[2021-04-03 06:16] LABS: Anisocytosis Slight; Basophils % (A) 0 %; Eosinophils # (A) 0.3 k/uL (0-0.7); Eosinophils % (A) 2 %; HCT 35.2 % (34.0-46.0); HGB 10.4 gm/dL (11.4-16.0); Hypochromasia Moderate; Lymphocytes # (A) 1.5 k/uL (1.0-4.8); Lymphocytes % (A) 14 %; MCH 26.6 pg (25.0-35.0); MCHC 29.7 g/dL (31.0-37.0); MCV 89.4 fL (80.0-100.0); Mean Platelet Volume 7.6; Monocytes # (A) 0.7 k/uL (0-1.0); Monocytes % (A) 7 %; Neutrophils # (A) 8.2 k/uL (1.3-7.7); Neutrophils % (A) 75 %; Platelet Count 558 k/uL (150-450); RBC 3.93 m/uL (3.80-5.40); RDW 16.4 % (11.5-15.5); WBC 10.9 k/uL (3.8-10.6)
[2021-04-03 07:15] LABS: Glucose,Whole Blood 236 mg/dL (75-99)
[2021-04-03] MEDS: PANTOPRAZOLE 40 MG/10 ML VIAL IV SCH (08:02)
[2021-04-03] MEDS: INSULIN ASPART (NovoLOG) 100 UNIT/ML VIAL SQ SCH ×7 (08:02→20:33)
[2021-04-03] MEDS: FENOFIBRATE 160 MG TAB PO SCH (08:05)
[2021-04-03] MEDS: SODIUM CHLORIDE 0.9% 1,000 ML IV SCH ×2 (08:05→20:36)
[2021-04-03] MEDS: ONDANSETRON 4 MG/2 ML VIAL IVP PRN ×2 (10:52→22:47)
[2021-04-03 11:31] LABS: ALT 22 U/L (8-44); AST 56 U/L (13-35); African American GFR (CKD) 87.6 (60.0-200.0); Albumin 3.5 g/dL (3.8-4.9); Albumin/Globulin Ratio 1.35 (1.60-3.17); Alkaline Phosphatase 106 U/L (41-126); BUN/Creat Ratio 17.56 Ratio (12.00-20.00); Blood Urea Nitrogen 15.8 mg/dL (9.0-27.0); Calcium 9.4 mg/dL (8.7-10.3); Carbon Dioxide 23.9 mmol/L (20.0-27.5); Chloride 97 mmol/L (96-109); Globulin 2.6 g/dL (1.6-3.3); Glucose 216 mg/dL (70-110); LDL Cholesterol,Calculated 84.7 mg/dL (0.0-131.0); Lipase 259 U/L (14-63); Non-African American GFR(CKD) 75.6 (60.0-200.0); Potassium 4.7 mmol/L (3.5-5.5); Sodium 136 mmol/L (135-145); Total Protein 6.1 g/dL (6.2-8.2)
[2021-04-03 12:30] LABS: Glucose,Whole Blood 228 mg/dL (75-99)
[2021-04-03] MEDS: HYDROcodone/APAP 5-325MG 1 EACH TAB PO PRN (14:46)
--- NOTE | 2021-04-03 15:47 | PN ---
PROGRESS NOTE CHIEF COMPLAINT: Pancreatitis. HISTORY OF PRESENT ILLNESS: This lady continues to do poorly. She still has some upper abdominal pain and she is still nauseated and vomiting occasionally. Blood sugars are still elevated. Temperature has been up slightly. It is becoming more clear that she may have secondary infection with necrotic pancreatitis and possible pseudocyst or abscess formation. PHYSICAL EXAMINATION: Her chest is clear. The cardiac exam is normal. Her abdomen is distended and she is still cleaner tube over the upper aspects. IMPRESSION: 1. Chronic relapsing pancreatitis. 2. Possible necrotizing pancreatitis. 3. Possible parapancreatic abscess. 4. Possible pseudocyst formation. 5. Uncontrolled diabetes. PLAN: She is being seen by Infectious Disease. She may require further surgical attention and might need to be transferred out of town. MMODL / IJN: [id number] /
--- NOTE | 2021-04-03 17:38 | PN ---
PROGRESS NOTE DATE OF SERVICE: 04/03/2021 REASON FOR FOLLOWUP: Fever, likely pancreatitis. INTERVAL HISTORY: The patient is running a low-grade fever of 99; however, overall fever pattern has improved. The patient denies having any chest pain. Abdominal pain has decreased in intensity. Did have an episode of vomiting, though. No diarrhea. PHYSICAL EXAMINATION: Blood pressure 139/68 with a pulse of 67, temperature 99. She is 93% on room air. General description is a middle-aged female up in the bed in no distress. Respiratory system: Unlabored breathing, decreased intensity of breath sounds. No wheeze. Heart S1, S2. Regular rate and rhythm. Abdomen soft, no tenderness. Extremities with no edema of the feet. LABS: Hemoglobin is 10.4, white count 10.9. Creatinine is 0.9. Procalcitonin 0.27. Triglycerides . DIAGNOSTIC IMPRESSION AND PLAN: Patient with a fever, low-grade, elevated white count, likely secondary to underlying pancreatitis and pancreatic pseudocyst. Clinically not behaving as an infected cyst in this patient whose fever and white count are trending down without any antibiotic therapy. The patient will be monitored closely off antibiotic. Continue supportive care. MMODL / IJN: [id number] /
[2021-04-03 17:41] LABS: Glucose,Whole Blood 202 mg/dL (75-99)
[2021-04-03] MEDS: INSULIN DETEMIR (LEVEMIR) 100 UNIT/ML SYR SQ SCH (20:35)
[2021-04-03 20:40] LABS: Glucose,Whole Blood 280 mg/dL (75-99)
[2021-04-04] MEDS: HYDROmorphone 1 MG/ML 1 ML SYRINGE IVP PRN ×3 (00:07→23:22)
[2021-04-04 07:19] LABS: Glucose,Whole Blood 207 mg/dL (75-99)
[2021-04-04] MEDS: PANTOPRAZOLE 40 MG/10 ML VIAL IV SCH (08:37)
[2021-04-04] MEDS: INSULIN ASPART (NovoLOG) 100 UNIT/ML VIAL SQ SCH ×7 (08:37→21:02)
[2021-04-04] MEDS: HYDROcodone/APAP 5-325MG 1 EACH TAB PO PRN ×4 (08:38→21:28)
[2021-04-04] MEDS: SODIUM CHLORIDE 0.9% 1,000 ML IV SCH ×2 (08:40→21:06)
[2021-04-04] MEDS: FENOFIBRATE 160 MG TAB PO SCH (08:42)
[2021-04-04] MEDS: ONDANSETRON 4 MG/2 ML VIAL IVP PRN (09:39)
[2021-04-04 12:04] LABS: Glucose,Whole Blood 228 mg/dL (75-99)
[2021-04-04] MEDS: DOCUSATE 100 MG CAP PO SCH ×2 (13:20→21:02)
[2021-04-04 17:23] LABS: Glucose,Whole Blood 221 mg/dL (75-99)
[2021-04-04 20:06] LABS: Glucose,Whole Blood 239 mg/dL (75-99)
[2021-04-04] MEDS: INSULIN DETEMIR (LEVEMIR) 100 UNIT/ML SYR SQ SCH (21:02)
--- NOTE | 2021-04-04 23:24 | PN ---
PROGRESS NOTE DATE OF SERVICE: 04/04/2021 REASON FOR FOLLOWUP: Fever. INTERVAL HISTORY: The patient is afebrile. No fever has been recorded in last 24 to 48 hours. The patient is feeling better. Patient's abdominal pain is currently controlled. No chest pain, shortness of breath or cough. No diarrhea. PHYSICAL EXAMINATION: Blood pressure 103/55 with a pulse of 68, temperature 99.6. She is 93% on room air. General description is a middle-aged female lying in bed in no distress. Respiratory system: Unlabored breathing. Clear to auscultation anteriorly. Heart S1, S2. Regular rate and rhythm. Abdomen soft , less tenderness to epigastric area Extremities with no edema of the feet. LABS: No new labs have been obtained today. Blood culture has been negative. DIAGNOSTIC IMPRESSION AND PLAN: Patient with a fever, source likely pancreatitis. No evidence of any infected pancreatic pseudocyst. White count is coming down. Fever has improved without antibiotics; hence recommend no antibiotics and monitor the patient closely off antibiotic therapy. Continue with supportive care. MMODL / IJN: [id number] / MTDD
[2021-04-05] MEDS: HYDROcodone/APAP 5-325MG 1 EACH TAB PO PRN ×4 (04:56→21:00)
[2021-04-05 07:14] LABS: Glucose,Whole Blood 249 mg/dL (75-99)
[2021-04-05] MEDS: FENOFIBRATE 160 MG TAB PO SCH (08:30)
[2021-04-05] MEDS: PANTOPRAZOLE 40 MG/10 ML VIAL IV SCH (08:30)
[2021-04-05] MEDS: DOCUSATE 100 MG CAP PO SCH ×2 (08:30→21:00)
[2021-04-05] MEDS: INSULIN ASPART (NovoLOG) 100 UNIT/ML VIAL SQ SCH ×7 (08:30→21:00)
[2021-04-05 11:54] LABS: Glucose,Whole Blood 353 mg/dL (75-99)
[2021-04-05] MEDS: SODIUM CHLORIDE 0.9% 1,000 ML IV SCH ×2 (12:10→19:35)
[2021-04-05 17:02] LABS: Glucose,Whole Blood 315 mg/dL (75-99)
[2021-04-05 20:32] LABS: Glucose,Whole Blood 329 mg/dL (75-99)
[2021-04-05 20:32] LABS: Glucose,Whole Blood 321 mg/dL (75-99)
[2021-04-05] MEDS: HYDROmorphone 1 MG/ML 1 ML SYRINGE IVP PRN (23:19)
--- NOTE | 2021-04-05 23:56 | P.PN ---
Progress Note - Text Progress Note Date: 04/05/21 REASON FOR FOLLOWUP: Fever. INTERVAL HISTORY: The patient remains to be afebrile. The patient is feeling better. Patient's abdominal pain is currently controlled. No chest pain, shortness of breath or cough. No diarrhea. PHYSICAL EXAMINATION: Blood pressure 110/55 with a pulse of 66, temperature 99.6. She is 93% on room air. General description is a middle-aged female lying in bed in no distress. Respiratory system: Unlabored breathing. Clear to auscultation anteriorly. Heart S1, S2. Regular rate and rhythm. Abdomen soft , less tenderness to epigastric area Extremities with no edema of the feet. LABS: Blood culture has been negative. DIAGNOSTIC IMPRESSION AND PLAN: Patient with a fever, source likely pancreatitis. No evidence of any infected pancreatic pseudocyst. White count is normal. Fever has resolved without antibiotics; hence recommend no antibiotics and monitor the patient closely off antibiotic therapy. Continue with supportive care.
[2021-04-06] MEDS: HYDROcodone/APAP 5-325MG 1 EACH TAB PO PRN ×5 (02:50→22:05)
[2021-04-06] MEDS ORDERED: INSULIN DETEMIR (LEVEMIR) 100 UNIT/ML SYR SQ SCH (07:00)
[2021-04-06 07:34] LABS: Glucose,Whole Blood 362 mg/dL (75-99)
[2021-04-06] MEDS: INSULIN ASPART (NovoLOG) 100 UNIT/ML VIAL SQ SCH ×7 (08:41→20:33)
[2021-04-06] MEDS: FENOFIBRATE 160 MG TAB PO SCH (08:42)
[2021-04-06] MEDS: ONDANSETRON 4 MG/2 ML VIAL IVP PRN (08:42)
[2021-04-06] MEDS: DOCUSATE 100 MG CAP PO SCH ×2 (08:42→20:33)
[2021-04-06] MEDS: PANTOPRAZOLE 40 MG/10 ML VIAL IV SCH (08:43)
[2021-04-06 12:09] LABS: Glucose,Whole Blood 308 mg/dL (75-99)
[2021-04-06] MEDS: SODIUM CHLORIDE 0.9% 1,000 ML IV SCH ×2 (12:35→20:47)
[2021-04-06] MEDS ORDERED: INSULIN DETEMIR (LEVEMIR) 100 UNIT/ML SYR SQ ONE (12:45)
[2021-04-06 17:26] LABS: Glucose,Whole Blood 339 mg/dL (75-99)
[2021-04-06 18:43] LABS: Amylase 79 U/L (30-110); Lipase 1529 U/L (23-300)
--- NOTE | 2021-04-06 19:11 | PN ---
PROGRESS NOTE DATE OF SERVICE: 04/04/2021 CHIEF COMPLAINT: Chronic necrotizing pancreatitis. HISTORY OF PRESENT ILLNESS: This lady's pain is doing better and temperature has been down. Lipase has been falling. However, her sugars continue to daniel rocket despite increasing her Lantus. REVIEW OF SYSTEMS: She is not vomiting. She is eating and pain is subsiding. Chest is clear. Cardiac exam is normal. Abdomen is soft, nontender. IMPRESSION: 1. Chronic relapsing necrotizing pancreatitis. 2. Uncontrolled diabetes mellitus. PLAN: Continue to increase the Lantus until her blood sugars come under control. She can probably go home soon. MMODL / IJN: [id number] /
--- NOTE | 2021-04-06 19:20 | PN ---
PROGRESS NOTE DATE OF SERVICE: 04/05/2021 CHIEF COMPLAINT: Pancreatitis and uncontrolled diabetes. HISTORY OF PRESENT ILLNESS: This lady's epigastric pain continues to improve and her pancreatitis seems to be responding. She has not been febrile. However, sugars are continuing to stay high in the 200 and 300s. PHYSICAL EXAM: She is slightly tender over the epigastrium with no masses. Chest is clear. The cardiac exam is normal. Abdomen is soft and nontender. IMPRESSION: 1. Chronic relapsing pancreatitis. 2. Uncontrolled diabetes. PLAN: Continue to increase Lantus until her sugars start to level off after which she should be able to go home. MMODL / IJN: [id number] /
--- NOTE | 2021-04-06 19:41 | PN ---
PROGRESS NOTE DATE OF SERVICE: 04/06/2021 REASON FOR FOLLOWUP: Fever secondary to pancreatitis. INTERVAL HISTORY: The patient is afebrile. The patient is currently feeling better. She is breathing comfortably. Has been tolerating her diet. No worsening abdominal pain. No nausea, vomiting or any diarrhea. PHYSICAL EXAMINATION: Blood pressure 126/77 with a pulse of 62, temperature 97.8. She is 95% on room air. General description is a middle-aged female lying in bed in no distress. Respiratory system: Unlabored breathing. Clear to auscultation anteriorly. Heart S1, S2. Regular rate and rhythm. Abdomen is soft, no tenderness. LABS: No new labs have been obtained today. DIAGNOSTIC IMPRESSION AND PLAN: Patient with a low-grade fever, more likely related to the pancreatitis, with no evidence of any infected pancreatic pseudocyst. Patient's fever resolved without any antibiotic therapy; hence recommending no antibiotic on discharge. Continue with supportive care. MMODL / IJN: [id number] /
[2021-04-06 20:16] LABS: Glucose,Whole Blood 294 mg/dL (75-99)
[2021-04-06 20:49] VITALS: RESP 18
[2021-04-06] MEDS: HYDROmorphone 1 MG/ML 1 ML SYRINGE IVP PRN (23:25)
[2021-04-07] MEDS ORDERED: INSULIN DETEMIR (LEVEMIR) 100 UNIT/ML SYR SQ SCH (07:00)
[2021-04-07 07:26] LABS: Glucose,Whole Blood 300 mg/dL (75-99)
[2021-04-07] MEDS: DOCUSATE 100 MG CAP PO SCH (08:31)
[2021-04-07] MEDS: HYDROcodone/APAP 5-325MG 1 EACH TAB PO PRN ×2 (08:31→13:09)
[2021-04-07] MEDS: INSULIN ASPART (NovoLOG) 100 UNIT/ML VIAL SQ SCH ×4 (08:32→13:10)
[2021-04-07] MEDS: FENOFIBRATE 160 MG TAB PO SCH (08:32)
[2021-04-07] MEDS: PANTOPRAZOLE 40 MG/10 ML VIAL IV SCH (08:32)
[2021-04-07 12:43] LABS: Glucose,Whole Blood 312 mg/dL (75-99)
[2021-04-07] MEDS: SODIUM CHLORIDE 0.9% 1,000 ML IV SCH (13:06)
[2021-04-07 14:10] VITALS: BP 115/55; PULSE 61; TEMP 98.9
--- NOTE | 2021-04-07 16:02 | PN ---
PROGRESS NOTE DATE OF SERVICE: 04/06/2021 CHIEF COMPLAINT: Pancreatitis. HISTORY OF PRESENT ILLNESS: This lady is doing a little bit better. Epigastric pain is nearly gone. However, her blood sugars continue to stay above 200. PHYSICAL EXAMINATION: Her chest is clear. Cardiac exam is normal. She is very slightly tender over the epigastrium. IMPRESSION: 1. Slowly resolving chronic relapsing pancreatitis. 2. Uncontrolled insulin-dependent diabetes mellitus. 3. Hypertriglyceridemia. PLAN: Raise insulin dosages again. MMJOHANL / EVELINN: [id number] /
--- NOTE | 2021-04-07 18:54 | DS ---
DISCHARGE SUMMARY CHIEF COMPLAINT: Epigastric pain with hepatitis. HISTORY OF PRESENT ILLNESS AND PHYSICAL EXAMINATION: Details of this lady's history and physical can be found in the initial workup. COURSE IN THE HOSPITAL: After admission she was placed on bedrest, started on intravenous fluids and analgesics. Her lipase was extremely high and slowly came down. She did start to run low-grade fevers, but these subsided. CT suggested that she may have some peripancreatic fluid and possible developing pseudocyst or pseudocysts. She was doing well and it was felt that she could be discharged, but her blood sugars remained very high despite aggressive increases in Levemir. Finally, it was decided that it was safe for her to go home and that her diabetes management could be continued as an outpatient. She was eating and feeling well and was not having any pain or vomiting. She will be seen in several days. FINAL DIAGNOSES: 1. Chronic relapsing pancreatitis. 2. Hypertriglyceridemia. 3. Uncontrolled insulin-dependent diabetes mellitus. OPERATIONS: None. CONSULTATION: Infectious Disease. She is improved. MMODCaridad / EVELINN: [id number] /
== END 2021-04-07 16:34 | disposition home or self-care (01) | DRG 438 ==
LOC: EC 14:38 → 3SCARD 22:38 → 5NMEDONC 04-01 19:29
PROVIDERS: ADMIT Family Medicine; ATTEND Family Medicine
DX: K85.91 Acute pancreatitis with uninfected necrosis, unspecified (principal); E11.10 Type 2 diabetes mellitus with ketoacidosis without coma; N17.0 Acute kidney failure with tubular necrosis; K86.3 Pseudocyst of pancreas; K86.1 Other chronic pancreatitis; E66.9 Obesity, unspecified; E78.1 Pure hyperglyceridemia; E78.5 Hyperlipidemia, unspecified; E86.1 Hypovolemia; E87.5 Hyperkalemia; F17.200 Nicotine dependence, unspecified, uncomplicated; I10 Essential (primary) hypertension; K75.9 Inflammatory liver disease, unspecified; K76.0 Fatty (change of) liver, not elsewhere classified; Z79.4 Long term (current) use of insulin; Z79.84 Long term (current) use of oral hypoglycemic drugs; Z79.899 Other long term (current) drug therapy; G89.29 Other chronic pain; K04.7 Periapical abscess without sinus; K21.9 Gastro-esophageal reflux disease without esophagitis; M54.50 Low back pain, unspecified
CPT/HCPCS: 36415; 71046; 74018; 74176; 80048; 80051; 80053; 80061; 81003; 82009; 82150; 82565; 82947; 83605; 83690; 83735; 84100; 84132; 84145; 84484; 84520; 85025; 85610; 85730; 86140; 87040; 87635; 93005; 94640; 94760; 96361; 96365; 96366; 96367; 96368; 96372; 96375; 96376; 99291

== ENCOUNTER 2021-04-26 04:06 | Inpatient (IN) | payer MEDICARE ==
--- NOTE | 2021-04-26 04:09 | ED ---
Nausea/Vomiting/Diarrhea HPI - General Stated complaint: nausea Time Seen by Provider: 04/26/21 04:08 Source: RN notes reviewed, old records reviewed Mode of arrival: ambulatory Limitations: no limitations - History of Present Illness Initial comments: This is a 50-year-old female to the ER for evaluation. Patient presents today for evaluation of significant nausea vomiting abdominal pain. Does not feel well here in the ER, mostly with nausea and vomiting. Concern for significantly elevated blood sugars. History of similar in the past history of pancreatitis this does feel similar. MD complaint: nausea, vomiting, abdominal pain -: days(s) Description of Vomiting: food contents Description of Diarrhea: water Associated Abdominal Pain: Yes Location: periumbilical Radiation: none Severity: moderate Severity scale (1-10): 4 Quality: stabbing, aching Consistency: constant Improves with: none Worsens with: eating, vomiting Context: history of abdominal surgery Associated Symptoms: myalgias, loss of appetite, malaise, nausea/vomiting, weakness - Related Data Home Medications Medication Instructions Recorded Confirmed Atorvastatin [Lipitor] 80 mg PO DAILY 06/25/19 04/26/21 lisinopriL 40 mg PO DAILY 09/24/20 04/26/21 metFORMIN HCL [Glucophage] 500 mg PO DAILY 09/24/20 04/26/21 traZODone HCL 50 - 100 mg PO HS PRN 01/11/21 04/26/21 Ergocalciferol (Vitamin D2) 1,250 mcg PO QMONTHLY 03/03/21 04/26/21 [Drisdol (50,000 Iu)] traMADol HCL 50 mg PO Q6H PRN 03/03/21 04/26/21 Esomeprazole Magnesium [NexIUM] 20 mg PO DAILY 03/28/21 04/26/21 Diphenoxylate HCl/Atropine 1 - 2 tab PO QID PRN 04/26/21 04/26/21 [Lomotil 2.5-0.025 mg Tablet] INSULIN ASPART (NovoLOG) [NovoLOG 18 unit SQ AC-TID 04/26/21 04/26/21 (formulary)] Previous Rx's Medication Instructions Recorded Fenofibrate [Lofibra] 160 mg PO DAILY #30 tab 03/23/19 Insulin Detemir (Levemir) [Levemir] 90 unit SQ DAILY@0700 #30 ml 04/07/21 Allergies Allergy/AdvReac Type Severity Reaction Status Date / Time levofloxacin [From Levaquin] Allergy Unknown Verified 04/26/21 07:02 Review of Systems ROS Statement: Those systems with pertinent positive or pertinent negative responses have been documented in the HPI. ROS Other: All systems not noted in ROS Statement are negative. Past Medical History Past Medical History: Diabetes Mellitus, GERD/Reflux, Hyperlipidemia, Hypertension, Syncope Additional Past Medical History / Comment(s): Pancreatitis twice, IDDM type II, UTI, chronic low back pain, bulging discs, dental abscesses in past. History of Any Multi-Drug Resistant Organisms: None Reported Past Surgical History: Tubal Ligation Additional Past Surgical History / Comment(s): Age 7 had VSD repair Past Anesthesia/Blood Transfusion Reactions: No Reported Reaction Past Psychological History: No Psychological Hx Reported Smoking Status: Current every day smoker - Past Family History Mother Family Medical History: No Reported History Additional Family Medical History / Comment(s): Mother was healthy. She is , pt cannot recall cause of . Father Family Medical History: Pneumonia Additional Family Medical History / Comment(s): Father at the age of 67yrs from pneumonia General Exam General appearance: alert, in no apparent distress Head exam: Present: atraumatic, normocephalic, normal inspection Eye exam: Present: normal appearance, PERRL, EOMI. Absent: scleral icterus, conjunctival injection, periorbital swelling ENT exam: Present: normal exam, mucous membranes moist Neck exam: Present: normal inspection. Absent: tenderness, meningismus, lymphadenopathy Respiratory exam: Present: normal lung sounds bilaterally. Absent: respiratory distress, wheezes, rales, rhonchi, stridor Cardiovascular Exam: Present: regular rate, normal rhythm, normal heart sounds. Absent: systolic murmur, diastolic murmur, rubs, gallop, clicks GI/Abdominal exam: Present: soft, normal bowel sounds. Absent: distended, tenderness, guarding, rebound, rigid Extremities exam: Present: normal inspection, full ROM, normal capillary refill. Absent: tenderness, pedal edema, joint swelling, calf tenderness Back exam: Present: normal inspection Neurological exam: Present: alert, oriented X3, CN II-XII intact Psychiatric exam: Present: normal affect, normal mood Skin exam: Present: warm, dry, intact, normal color. Absent: rash Course Vital Signs 04/26/21 04/26/21 04/26/21 04:10 04:41 04:50 Temperature 99.2 F Pulse Rate 75 74 Pulse Rate [ Pulse Oximetery ] Respiratory 16 24 16 Rate Blood Pressure 139/88 139/88 140/81 Blood Pressure [Right Arm] O2 Sat by Pulse 98 96 97 Oximetry 04/26/21 04/26/21 04/26/21 05:10 08:00 14:00 Temperature 97.8 F 98 F Pulse Rate 70 Pulse Rate [ 68 66 Pulse Oximetery ] Respiratory 18 16 16 Rate Blood Pressure 153/88 Blood Pressure 108/49 128/78 [Right Arm] O2 Sat by Pulse 97 97 96 Oximetry 04/26/21 16:42 Temperature 98.4 F Pulse Rate Pulse Rate [ 62 Pulse Oximetery ] Respiratory 16 Rate Blood Pressure Blood Pressure 136/65 [Right Arm] O2 Sat by Pulse 94 L Oximetry - Reevaluation(s) Reevaluation #1: 04/26/21 05:49 Medical record is reviewed Reevaluation #2: 04/26/21 patient has improvement pain, symptoms mildly improved Patient informed of results and questions answered - Consultations Consultation #1: Spoke with Dr. Cerda who will admit this patient Medical Decision Making - Medical Decision Making 50 female to the emergency department for severe abdominal pain she does have significant pancreatitis with multiple electrolyte abnormalities [place] for hydration pain control symptom management - Lab Data Result diagrams: 04/26/21 04:13 04/26/21 10:57 Lab Results 04/26/21 04/26/21 04/26/21 Range/Units 04:13 04:13 04:13 WBC 8.7 (3.8-10.6) k/uL RBC 4.52 (3.80-5.40) m/uL Hgb 11.7 (11.4-16.0) gm/dL Hct 38.8 (34.0-46.0) % MCV 85.9 (80.0-100.0) fL MCH 25.9 (25.0-35.0) pg MCHC 30.1 L (31.0-37.0) g/dL RDW 16.8 H (11.5-15.5) % Plt Count 622 H (150-450) k/uL MPV 7.7 Neutrophils % 72 % Lymphocytes % 19 % Monocytes % 4 % Eosinophils % 2 % Basophils % 1 % Neutrophils # 6.2 (1.3-7.7) k/uL Lymphocytes # 1.7 (1.0-4.8) k/uL Monocytes # 0.4 (0-1.0) k/uL Eosinophils # 0.2 (0-0.7) k/uL Basophils # 0.1 (0-0.2) k/uL Hypochromasia Moderate Anisocytosis Slight Sodium 132 L (137-145) mmol/L Potassium 6.0 H (3.5-5.1) mmol/L Chloride 100 (98-107) mmol/L Carbon Dioxide 20 L (22-30) mmol/L Anion Gap 12 mmol/L BUN 20 H (7-17) mg/dL Creatinine 1.17 H (0.52-1.04) mg/dL Est GFR (CKD-EPI)AfAm 64 (>60 ml/min/1.73 sqM) Est GFR (CKD-EPI)NonAf 55 (>60 ml/min/1.73 sqM) Glucose 471 H (74-99) mg/dL POC Glucose (mg/dL) (75-99) mg/dL POC Glu Data Entry Supervisor ID Lactic Ac Sepsis Rflx Plasma Lactic Acid Travon (0.7-2.0) mmol/L Calcium 9.6 (8.4-10.2) mg/dL Phosphorus 4.1 (2.5-4.5) mg/dL Magnesium 1.4 L (1.6-2.3) mg/dL Total Bilirubin 0.6 (0.2-1.3) mg/dL AST 43 H (14-36) U/L ALT 31 (4-34) U/L Alkaline Phosphatase 126 (38-126) U/L Troponin I (0.000-0.034) ng/mL Total Protein 6.9 (6.3-8.2) g/dL Albumin 3.8 (3.5-5.0) g/dL Lipase 1092 H (23-300) U/L Urine Color Light Yellow Urine Appearance Clear (Clear) Urine pH 5.5 (5.0-8.0) Ur Specific [place] 1.023 (1.001-1.035) Urine Protein Negative (Negative) Urine Glucose (UA) 4+ H (Negative) Urine Ketones Negative (Negative) Urine Blood Negative (Negative) Urine Nitrite Negative (Negative) Urine Bilirubin Negative (Negative) Urine Urobilinogen <2.0 (<2.0) mg/dL Ur Leukocyte Esterase Negative (Negative) Acetone, Qual Negative (Negative) 04/26/21 04/26/21 04/26/21 Range/Units 04:13 04:13 04:22 WBC (3.8-10.6) k/uL RBC (3.80-5.40) m/uL Hgb (11.4-16.0) gm/dL Hct (34.0-46.0) % MCV (80.0-100.0) fL MCH (25.0-35.0) pg MCHC (31.0-37.0) g/dL RDW (11.5-15.5) % Plt Count (150-450) k/uL MPV Neutrophils % % Lymphocytes % % Monocytes % % Eosinophils % % Basophils % % Neutrophils # (1.3-7.7) k/uL Lymphocytes # (1.0-4.8) k/uL Monocytes # (0-1.0) k/uL Eosinophils # (0-0.7) k/uL Basophils # (0-0.2) k/uL Hypochromasia Anisocytosis Sodium (137-145) mmol/L Potassium (3.5-5.1) mmol/L Chloride (98-107) mmol/L Carbon Dioxide (22-30) mmol/L Anion Gap mmol/L BUN (7-17) mg/dL Creatinine (0.52-1.04) mg/dL Est GFR (CKD-EPI)AfAm (>60 ml/min/1.73 sqM) Est GFR (CKD-EPI)NonAf (>60 ml/min/1.73 sqM) Glucose (74-99) mg/dL POC Glucose (mg/dL) 431 H (75-99) mg/dL POC Glu Data Entry Supervisor ID Riki Fair Lactic Ac Sepsis Rflx Plasma Lactic Acid Travon 2.8 H* (0.7-2.0) mmol/L Calcium (8.4-10.2) mg/dL Phosphorus (2.5-4.5) mg/dL Magnesium (1.6-2.3) mg/dL Total Bilirubin (0.2-1.3) mg/dL AST (14-36) U/L ALT (4-34) U/L Alkaline Phosphatase (38-126) U/L Troponin I <0.012 (0.000-0.034) ng/mL Total Protein (6.3-8.2) g/dL Albumin (3.5-5.0) g/dL Lipase (23-300) U/L Urine Color Urine Appearance (Clear) Urine pH (5.0-8.0) Ur Specific [place] (1.001-1.035) Urine Protein (Negative) Urine Glucose (UA) (Negative) Urine Ketones (Negative) Urine Blood (Negative) Urine Nitrite (Negative) Urine Bilirubin (Negative) Urine Urobilinogen (<2.0) mg/dL Ur Leukocyte Esterase (Negative) Acetone, Qual (Negative) 04/26/21 Range/Units 05:34 WBC (3.8-10.6) k/uL RBC (3.80-5.40) m/uL Hgb (11.4-16.0) gm/dL Hct (34.0-46.0) % MCV (80.0-100.0) fL MCH (25.0-35.0) pg MCHC (31.0-37.0) g/dL RDW (11.5-15.5) % Plt Count (150-450) k/uL MPV Neutrophils % % Lymphocytes % % Monocytes % % Eosinophils % % Basophils % % Neutrophils # (1.3-7.7) k/uL Lymphocytes # (1.0-4.8) k/uL Monocytes # (0-1.0) k/uL Eosinophils # (0-0.7) k/uL Basophils # (0-0.2) k/uL Hypochromasia Anisocytosis Sodium (137-145) mmol/L Potassium (3.5-5.1) mmol/L Chloride (98-107) mmol/L Carbon Dioxide (22-30) mmol/L Anion Gap mmol/L BUN (7-17) mg/dL Creatinine (0.52-1.04) mg/dL Est GFR (CKD-EPI)AfAm (>60 ml/min/1.73 sqM) Est GFR (CKD-EPI)NonAf (>60 ml/min/1.73 sqM) Glucose (74-99) mg/dL POC Glucose (mg/dL) (75-99) mg/dL POC Glu Data Entry Supervisor ID Lactic Ac Sepsis Rflx Y Plasma Lactic Acid Travon (0.7-2.0) mmol/L Calcium (8.4-10.2) mg/dL Phosphorus (2.5-4.5) mg/dL Magnesium (1.6-2.3) mg/dL Total Bilirubin (0.2-1.3) mg/dL AST (14-36) U/L ALT (4-34) U/L Alkaline Phosphatase (38-126) U/L Troponin I (0.000-0.034) ng/mL Total Protein (6.3-8.2) g/dL Albumin (3.5-5.0) g/dL Lipase (23-300) U/L Urine Color Urine Appearance (Clear) Urine pH (5.0-8.0) Ur Specific [place] (1.001-1.035) Urine Protein (Negative) Urine Glucose (UA) (Negative) Urine Ketones (Negative) Urine Blood (Negative) Urine Nitrite (Negative) Urine Bilirubin (Negative) Urine Urobilinogen (<2.0) mg/dL Ur Leukocyte Esterase (Negative) Acetone, Qual (Negative) - EKG Data -: EKG Interpreted by Me (EKG shows sinus rhythm 79. 148 QRS 80 QTC 408) Disposition Clinical Impression: Dehydration, Pancreatitis, Acute pancreatitis, Abdominal pain, Hyperkalemia Disposition: ADMITTED IP TO THIS HOSP Condition: Serious Is patient prescribed a controlled substance at d/c from ED?: No
[2021-04-26] MEDS ORDERED: SODIUM CHLORIDE 0.9% 500 ML 500 ML IV STA (04:13)
[2021-04-26] MEDS ORDERED: SODIUM CHLORIDE 0.9% 1,000 ML IV STA ×2 (04:13)
[2021-04-26] MEDS ORDERED: MORPHINE SULFATE 4 MG/ML SYRINGE IV STA (04:13)
[2021-04-26] MEDS ORDERED: ONDANSETRON 4 MG/2 ML VIAL IVP STA (04:13)
[2021-04-26 04:24] LABS: Glucose,Whole Blood 431 mg/dL (75-99)
[2021-04-26 05:10] LABS: Anisocytosis Slight; Basophils # (A) 0.1 k/uL (0-0.2); Basophils % (A) 1 %; Eosinophils # (A) 0.2 k/uL (0-0.7); Eosinophils % (A) 2 %; HCT 38.8 % (34.0-46.0); HGB 11.7 gm/dL (11.4-16.0); Hypochromasia Moderate; Lymphocytes # (A) 1.7 k/uL (1.0-4.8); Lymphocytes % (A) 19 %; MCH 25.9 pg (25.0-35.0); MCHC 30.1 g/dL (31.0-37.0); MCV 85.9 fL (80.0-100.0); Mean Platelet Volume 7.7; Monocytes # (A) 0.4 k/uL (0-1.0); Monocytes % (A) 4 %; Neutrophils # (A) 6.2 k/uL (1.3-7.7); Neutrophils % (A) 72 %; Platelet Count 622 k/uL (150-450); RBC 4.52 m/uL (3.80-5.40); RDW 16.8 % (11.5-15.5); WBC 8.7 k/uL (3.8-10.6)
[2021-04-26 05:12] LABS: Appearance,Urine Clear (Clear); Bilirubin,Urine Negative (Negative); Blood,Urine Negative (Negative); Color,Urine Light Yellow; Glucose,Urine (UA) 4+ (Negative); Ketones,Urine Negative (Negative); Leukocyte Esterase,Urine Negative (Negative); Nitrite,Urine Negative (Negative); PH, Urine 5.5 (5.0-8.0); Protein,Urine Negative (Negative); Specific Gravity,Urine 1.023 (1.001-1.035); Urobilinogen,Urine <2.0 mg/dL (<2.0)
[2021-04-26 05:55] LABS: ALT 31 U/L (4-34); AST 43 U/L (14-36); African American GFR (CKD) 64 (>60 ml/min/1.73 sqM); Albumin 3.8 g/dL (3.5-5.0); Alkaline Phosphatase 126 U/L (38-126); Anion Gap 12 mmol/L; Blood Urea Nitrogen 20 mg/dL (7-17); Calcium 9.6 mg/dL (8.4-10.2); Carbon Dioxide 20 mmol/L (22-30); Chloride 100 mmol/L (98-107); Glucose 471 mg/dL (74-99); Lipase 1092 U/L (23-300); Magnesium 1.4 mg/dL (1.6-2.3); Non-African American GFR(CKD) 55 (>60 ml/min/1.73 sqM); Phosphorus 4.1 mg/dL (2.5-4.5); Sodium 132 mmol/L (137-145); Total Bilirubin 0.6 mg/dL (0.2-1.3); Total Protein 6.9 g/dL (6.3-8.2)
[2021-04-26] MEDS ORDERED: NALOXONE 0.4 MG/ML 1 ML VIAL IV PRN (06:15)
[2021-04-26] MEDS ORDERED: INSULIN REGULAR 100 UNIT/ML VIAL (IV) IV ONE (06:15)
[2021-04-26] MEDS ORDERED: GLUCAGON 1 MG/ML VIAL IVP STA (06:15)
[2021-04-26] MEDS ORDERED: MORPHINE SULFATE 4 MG/ML SYRINGE IV PRN (06:15)
[2021-04-26] MEDS ORDERED: LORazepam 2 MG/ML INJ IV PRN (06:15)
[2021-04-26] MEDS ORDERED: SODIUM BICARB 8.4% 50 ML SYR (1 MEQ/ML) IV STA (06:15)
[2021-04-26] MEDS ORDERED: ONDANSETRON 4 MG/2 ML VIAL IVP PRN (06:15)
[2021-04-26 07:01] LABS: Glucose,Whole Blood 372 mg/dL (75-99)
[2021-04-26] MEDS: SODIUM CHLORIDE 0.9% 1,000 ML IV SCH ×3 (08:09→20:51)
[2021-04-26] MEDS: PANTOPRAZOLE 40 MG/10 ML VIAL IV SCH (08:10)
[2021-04-26] MEDS: HYDROmorphone 0.5 MG/0.5 ML SYRINGE IVP PRN ×3 (10:07→22:10)
[2021-04-26 12:39] LABS: Glucose,Whole Blood 172 mg/dL (75-99)
[2021-04-26] MEDS: INSULIN ASPART (NovoLOG) 100 UNIT/ML VIAL SQ SCH ×2 (12:44→17:46)
[2021-04-26 17:37] LABS: Glucose,Whole Blood 126 mg/dL (75-99)
[2021-04-26] MEDS: FENOFIBRATE 160 MG TAB PO SCH (20:50)
[2021-04-26] MEDS: ATORVASTATIN 80 MG TAB PO SCH (20:50)
[2021-04-26] MEDS: lisinopriL 20 MG TAB PO SCH (20:51)
[2021-04-26] MEDS: traZODone HCL 50 MG TAB PO PRN (20:59)
[2021-04-26 21:49] LABS: Glucose,Whole Blood 129 mg/dL (75-99)
[2021-04-27] MEDS: HYDROmorphone 0.5 MG/0.5 ML SYRINGE IVP PRN ×3 (04:01→20:01)
[2021-04-27] MEDS: SODIUM CHLORIDE 0.9% 1,000 ML IV SCH ×3 (04:03→20:01)
[2021-04-27 06:27] LABS: Anisocytosis Slight; Basophils % (A) 0 %; Eosinophils # (A) 0.2 k/uL (0-0.7); Eosinophils % (A) 3 %; HCT 33.6 % (34.0-46.0); HGB 10.3 gm/dL (11.4-16.0); Hypochromasia Marked; Lymphocytes % (A) 36 %; MCH 26.5 pg (25.0-35.0); MCHC 30.7 g/dL (31.0-37.0); MCV 86.4 fL (80.0-100.0); Monocytes # (A) 0.3 k/uL (0-1.0); Monocytes % (A) 5 %; Neutrophils % (A) 53 %; Platelet Count 426 k/uL (150-450); RBC 3.89 m/uL (3.80-5.40); RDW 16.9 % (11.5-15.5); WBC 5.6 k/uL (3.8-10.6)
[2021-04-27] MEDS: PANTOPRAZOLE 40 MG/10 ML VIAL IV SCH (07:54)
[2021-04-27] MEDS: INSULIN ASPART (NovoLOG) 100 UNIT/ML VIAL SQ SCH ×2 (07:55→18:04)
[2021-04-27 09:52] LABS: Glucose,Whole Blood 152 mg/dL (75-99)
[2021-04-27 10:26] LABS: African American GFR (CKD) 87.6 (60.0-200.0); Albumin 3.1 g/dL (3.8-4.9); Albumin/Globulin Ratio 1.55 (1.60-3.17); Anion Gap 10.2 mmol/L (10.00-18.00); BUN/Creat Ratio 15.67 Ratio (12.00-20.00); Blood Urea Nitrogen 14.1 mg/dL (9.0-27.0); Calcium 8.3 mg/dL (8.7-10.3); Carbon Dioxide 22.8 mmol/L (20.0-27.5); Non-African American GFR(CKD) 75.6 (60.0-200.0); Total Bilirubin 0.2 mg/dL (0.30-1.20); Total Protein 5.1 g/dL (6.2-8.2)
[2021-04-27 11:19] LABS: Anisocytosis Slight; Basophils % (A) 1 %; Eosinophils # (A) 0.2 k/uL (0-0.7); Eosinophils % (A) 3 %; HCT 33.6 % (34.0-46.0); HGB 10.4 gm/dL (11.4-16.0); Hypochromasia Marked; Lymphocytes # (A) 1.5 k/uL (1.0-4.8); Lymphocytes % (A) 29 %; MCH 26.9 pg (25.0-35.0); MCV 86.9 fL (80.0-100.0); Mean Platelet Volume 7.1; Monocytes # (A) 0.3 k/uL (0-1.0); Monocytes % (A) 5 %; Neutrophils # (A) 3.1 k/uL (1.3-7.7); Neutrophils % (A) 61 %; Platelet Count 443 k/uL (150-450); RBC 3.86 m/uL (3.80-5.40); WBC 5.1 k/uL (3.8-10.6)
[2021-04-27 11:51] LABS: ALT 35 U/L (4-34); AST 92 U/L (14-36); African American GFR (CKD) 80 (>60 ml/min/1.73 sqM); Albumin 2.8 g/dL (3.5-5.0); Alkaline Phosphatase 86 U/L (38-126); Anion Gap 4 mmol/L; Blood Urea Nitrogen 14 mg/dL (7-17); Calcium 8.4 mg/dL (8.4-10.2); Carbon Dioxide 25 mmol/L (22-30); Chloride 107 mmol/L (98-107); Globulin 2.7 g/dL; Glucose 192 mg/dL (74-99); Lipase 498 U/L (23-300); Non-African American GFR(CKD) 70 (>60 ml/min/1.73 sqM); Potassium 5.4 mmol/L (3.5-5.1); Sodium 136 mmol/L (137-145); Total Bilirubin 0.5 mg/dL (0.2-1.3); Total Protein 5.5 g/dL (6.3-8.2)
[2021-04-27 11:58] LABS: Glucose,Whole Blood 204 mg/dL (75-99)
[2021-04-27] MEDS ORDERED: INSULIN ASPART (NovoLOG) 100 UNIT/ML VIAL SQ SCH (12:30)
--- NOTE | 2021-04-27 15:46 | HP ---
HISTORY AND PHYSICAL CHIEF COMPLAINT: Acute epigastric pain with nausea and vomiting. HISTORY OF PRESENT ILLNESS: This is another admission for this 50-year-old obese white female with insulin- dependent diabetes mellitus who has been in and out of the hospital numerous times recently for pancreatitis. She has insulin-dependent diabetes and hypertriglyceridemia. Triglycerides are frequently over 1000. She does take fenofibrate, but this does not seem to be helping. Each time she comes in her pancreatitis gets worse, which also explains the fact that her insulin requirement has been going up dramatically. There is concern now that she may be developing a chronic pancreatitis with pseudocyst formation. REVIEW OF SYSTEMS: She denies any other complaints or symptoms. She has not had any hematemesis, melena, hematochezia, etc. Past medical history, family history, and personal and social histories are all essentially unchanged. It is believed that she is taking her medicines responsibly. She is on Levemir 80 units once a day, which has gone up dramatically, lisinopril 40 mg once a day, atorvastatin 80 mg once a day, fenofibrate 160 mg once a day, and vitamin D. The remainder of her history is unremarkable. She does continue to smoke. She does not consume any alcohol. PHYSICAL EXAMINATION: Blood pressure is 148/100 with a pulse of 88 and regular, respirations of 32, and she is afebrile. In general she appeared to be overweight and slightly pale. She was uncomfortable. There is no jaundice. Head, ears, eyes, nose, mouth and throat were normal. Chest is clear. Cardiac exam demonstrated sinus tachycardia with no murmurs or extra sounds. The abdomen is protuberant. She was tender over the epigastrium. There are no masses or visceromegaly. Bowel sounds were present. Flanks were nontender. There is no Brown-Verma sign. Extremities were normal. Neurologically she is intact. She is admitted to the hospital with the diagnoses: 1. Chronic pancreatitis. 2. Uncontrolled insulin-dependent diabetes mellitus. 3. Obesity. 4. Depression. PLAN: 1. Bedrest. 2. IV fluids. 3. Control blood sugars. 4. ultrasound of the pancreas. 5. If she is truly developing a chronic active pancreatitis with pseudocyst formation, she will have to be transferred to a tertiary hospital. MMODL / IJN: [id number] /
[2021-04-27 17:32] LABS: Glucose,Whole Blood 149 mg/dL (75-99)
--- NOTE | 2021-04-27 18:01 | US ---
EXAMINATION TYPE: US abdomen limited DATE OF EXAM: 04/27/2021 COMPARISON: CT abdomen pelvis 04/01/2021. CLINICAL HISTORY: pancreatitis. pain. NPO. EXAM MEASUREMENTS: Liver Length: 22.0 cm Gallbladder Wall: 0.2 cm CBD: 0.4 cm Right Kidney: 9.6 x 5.4 x 5.1 cm Pancreas: Obscured by bowel gas Liver: Increased attenuation, decreased visualization of vessels suggestive of fatty infiltrate. En larged in size. Gallbladder: wnl Evidence for sonographic Jurado's sign: neg CBD: wnl Right Kidney: No hydronephrosis or masses seen IMPRESSION: 1. Limited evaluation of pancreas sheets no evidence of peripancreatic fluid collection. 2. Hepatomegaly with steatosis.
[2021-04-27] MEDS: traMADol 50 MG TAB PO PRN (18:04)
[2021-04-27 20:01] LABS: Glucose,Whole Blood 223 mg/dL (75-99)
[2021-04-27] MEDS: ATORVASTATIN 80 MG TAB PO SCH (20:01)
[2021-04-27] MEDS: FENOFIBRATE 160 MG TAB PO SCH (20:01)
[2021-04-27] MEDS: lisinopriL 20 MG TAB PO SCH (20:01)
[2021-04-28] MEDS: SODIUM CHLORIDE 0.9% 1,000 ML IV SCH ×3 (03:29→19:57)
[2021-04-28] MEDS: HYDROmorphone 0.5 MG/0.5 ML SYRINGE IVP PRN ×4 (03:34→21:59)
[2021-04-28 08:02] LABS: Glucose,Whole Blood 226 mg/dL (75-99)
[2021-04-28] MEDS: INSULIN DETEMIR (LEVEMIR) 100 UNIT/ML SYR SQ SCH (08:40)
[2021-04-28] MEDS: INSULIN ASPART (NovoLOG) 100 UNIT/ML VIAL SQ SCH ×3 (08:42→17:47)
[2021-04-28] MEDS ORDERED: ESOMEPRAZOLE MAGNESIUM 20 MG PO SCH (09:00)
[2021-04-28] MEDS: PANTOPRAZOLE 40 MG/10 ML VIAL IV SCH (10:44)
[2021-04-28 12:57] LABS: Glucose,Whole Blood 276 mg/dL (75-99)
[2021-04-28 13:35] VITALS: BMI 44.3
[2021-04-28 17:33] LABS: Glucose,Whole Blood 240 mg/dL (75-99)
[2021-04-28] MEDS: traZODone HCL 50 MG TAB PO PRN (19:59)
[2021-04-28] MEDS: traMADol 50 MG TAB PO PRN (19:59)
[2021-04-28] MEDS: lisinopriL 20 MG TAB PO SCH (20:00)
[2021-04-28] MEDS: ATORVASTATIN 80 MG TAB PO SCH (20:00)
[2021-04-28] MEDS: FENOFIBRATE 160 MG TAB PO SCH (20:00)
[2021-04-28 20:24] LABS: Glucose,Whole Blood 219 mg/dL (75-99)
[2021-04-29] MEDS: traMADol 50 MG TAB PO PRN ×2 (02:45→17:04)
[2021-04-29] MEDS: SODIUM CHLORIDE 0.9% 1,000 ML IV SCH ×3 (02:48→20:46)
[2021-04-29] MEDS: HYDROmorphone 0.5 MG/0.5 ML SYRINGE IVP PRN ×3 (04:07→20:45)
[2021-04-29 07:48] LABS: Glucose,Whole Blood 264 mg/dL (75-99)
[2021-04-29] MEDS: INSULIN DETEMIR (LEVEMIR) 100 UNIT/ML SYR SQ SCH (08:32)
[2021-04-29] MEDS: PANTOPRAZOLE 40 MG/10 ML VIAL IV SCH (08:32)
[2021-04-29] MEDS: INSULIN ASPART (NovoLOG) 100 UNIT/ML VIAL SQ SCH ×3 (08:33→17:38)
[2021-04-29 12:07] LABS: Glucose,Whole Blood 259 mg/dL (75-99)
[2021-04-29 16:11] LABS: Anisocytosis Slight; Basophils % (A) 1 %; Eosinophils # (A) 0.2 k/uL (0-0.7); Eosinophils % (A) 3 %; HCT 35.5 % (34.0-46.0); HGB 10.9 gm/dL (11.4-16.0); Hypochromasia Moderate; Lymphocytes % (A) 27 %; MCH 26.7 pg (25.0-35.0); MCHC 30.8 g/dL (31.0-37.0); MCV 86.7 fL (80.0-100.0); Mean Platelet Volume 6.7; Monocytes # (A) 0.4 k/uL (0-1.0); Monocytes % (A) 5 %; Neutrophils # (A) 4.6 k/uL (1.3-7.7); Neutrophils % (A) 63 %; Platelet Count 471 k/uL (150-450); WBC 7.2 k/uL (3.8-10.6)
[2021-04-29 16:26] LABS: ALT 32 U/L (4-34); AST 69 U/L (14-36); African American GFR (CKD) 78 (>60 ml/min/1.73 sqM); Albumin 3.4 g/dL (3.5-5.0); Albumin/Globulin Ratio 1.2; Alkaline Phosphatase 81 U/L (38-126); Anion Gap 7 mmol/L; Blood Urea Nitrogen 15 mg/dL (7-17); Calcium 8.3 mg/dL (8.4-10.2); Carbon Dioxide 24 mmol/L (22-30); Chloride 104 mmol/L (98-107); Globulin 2.8 g/dL; Glucose 255 mg/dL (74-99); Lipase 522 U/L (23-300); Non-African American GFR(CKD) 67 (>60 ml/min/1.73 sqM); Potassium 4.8 mmol/L (3.5-5.1); Sodium 135 mmol/L (137-145); Total Bilirubin 0.4 mg/dL (0.2-1.3); Total Protein 6.2 g/dL (6.3-8.2)
[2021-04-29 17:32] LABS: Glucose,Whole Blood 221 mg/dL (75-99)
[2021-04-29] MEDS: ATORVASTATIN 80 MG TAB PO SCH (20:45)
[2021-04-29] MEDS: FENOFIBRATE 160 MG TAB PO SCH (20:45)
[2021-04-29] MEDS: lisinopriL 20 MG TAB PO SCH (20:45)
--- NOTE | 2021-04-29 20:51 | PN ---
PROGRESS NOTE DATE OF SERVICE: 04/29/2021 CHIEF COMPLAINT: Pancreatitis and uncontrolled diabetes. HISTORY OF PRESENT ILLNESS: This lady is feeling fairly well. Pain is generally gone. Lipase is still elevated, but it has come down markedly. Her blood sugars are still quite high and we will increase her Levemir. PHYSICAL EXAMINATION: Her chest is clear. The cardiac exam is normal. Abdomen is soft, nontender. There are no masses. IMPRESSION: 1. Chronic relapsing pancreatitis. 2. Hypertriglyceridemia. 3. Uncontrolled diabetes mellitus. 4. Obesity. PLAN: Increase insulin. Probably home tomorrow. MMODL / IJN: [id number] /
[2021-04-29] MEDS ORDERED: INSULIN DETEMIR (LEVEMIR) 100 UNIT/ML SYR SQ SCH (21:00)
[2021-04-29 21:08] LABS: Glucose,Whole Blood 134 mg/dL (75-99)
[2021-04-30 01:47] LABS: Glucose,Whole Blood 279 mg/dL (75-99)
[2021-04-30] MEDS: SODIUM CHLORIDE 0.9% 1,000 ML IV SCH ×2 (03:10→11:26)
[2021-04-30] MEDS: HYDROmorphone 0.5 MG/0.5 ML SYRINGE IVP PRN ×2 (03:36→11:32)
[2021-04-30 04:09] VITALS: RESP 18
[2021-04-30 07:28] LABS: Glucose,Whole Blood 200 mg/dL (75-99)
[2021-04-30] MEDS: traMADol 50 MG TAB PO PRN (07:30)
[2021-04-30] MEDS: INSULIN ASPART (NovoLOG) 100 UNIT/ML VIAL SQ SCH ×2 (07:31→13:06)
[2021-04-30] MEDS: PANTOPRAZOLE 40 MG/10 ML VIAL IV SCH (07:31)
[2021-04-30 09:18] LABS: Chol/HDL Ratio 5.29 Ratio; LDL Cholesterol,Calculated 54.1 mg/dL (0.0-131.0)
[2021-04-30 12:41] LABS: Glucose,Whole Blood 218 mg/dL (75-99)
[2021-04-30 15:21] VITALS: BP 153/80; PULSE 53; TEMP 98.4
--- NOTE | 2021-05-01 19:42 | PN ---
PROGRESS NOTE DATE OF SERVICE: 04/28/2021 CHIEF COMPLAINT: Uncontrolled diabetes and pancreatitis. HISTORY OF PRESENT ILLNESS: This lady is still having quite a bit of difficulty with epigastric pain. She is not vomiting. Blood sugars are still quite elevated, as is the lipase. PHYSICAL EXAMINATION: Her vital signs are normal. Chest is clear. Cardiac exam is normal. Abdomen is protuberant. She is tender in the upper abdomen. IMPRESSION: 1. Chronic relapsing pancreatitis. 2. Hypertriglyceridemia. 3. Uncontrolled insulin-dependent diabetes mellitus. 4. Obesity. PLAN: Continue with the current program, allowing her to eat and increasing her insulin. Ultrasound of the abdomen is being done to try to determine if she has any pseudocyst or abscesses in the pancreas. MMODL / IJN: [id number] /
--- NOTE | 2021-05-01 19:48 | PN ---
PROGRESS NOTE DATE OF SERVICE: 04/27/2021 CHIEF COMPLAINT: Acute pancreatitis. HISTORY OF PRESENT ILLNESS: This lady is still having a significant amount of pain. She is not running a fever. She is still nauseated. Blood sugars are quite high as well. PHYSICAL EXAMINATION: Chest is clear. Cardiac exam demonstrates tachycardia. Abdomen is protuberant and she is tender over the epigastrium. There are no definite masses. IMPRESSION: 1. Chronic relapsing pancreatitis. 2. Hypertriglyceridemia. 3. Uncontrolled insulin-dependent diabetes mellitus. 4. Obesity. PLAN: Continue with IV fluids, analgesics and control of her diabetes. MMODL / IJN: [id number] /
--- NOTE | 2021-05-02 18:40 | DS ---
DISCHARGE SUMMARY DATE OF SERVICE: 04/30/2021 CHIEF COMPLAINT: 1. Pancreatitis. 2. Uncontrolled diabetes. HISTORY OF PRESENT ILLNESS AND PHYSICAL EXAMINATION: Details of this lady's history and physical can be found in the initial workup. LABORATORY STUDIES: While she was in the hospital she had laboratory studies, details of which can be found in the laboratory section of her chart. COURSE IN THE HOSPITAL: After admission she was placed on bedrest and started on intravenous fluids and started on management of her hyperglycemia with a blood sugar over 500. Triglycerides were also markedly elevated, which was the attribution of her pancreatitis. Blood sugars slowly came down, as did her abdominal pain and lipase. She did run a low-grade fever. Ultrasound failed to demonstrate a pseudocyst or abscess. Even though her blood sugars were still slightly high, she was doing well and it was felt that she could go home on April 30. FINAL DIAGNOSES: 1. Uncontrolled insulin-dependent diabetes mellitus. 2. Chronic relapsing pancreatitis. 3. Obesity. OPERATIONS: None. CONSULTATIONS: None. She is improved. MMPAULA / GOOD: [id number] /
== END 2021-04-30 15:15 | disposition home or self-care (01) | DRG 440 ==
LOC: EC 04:06 → 5NMEDONC 06:15
PROVIDERS: ADMIT Family Medicine; ATTEND Family Medicine
DX: K85.90 Acute pancreatitis without necrosis or infection, unspecified (principal); K86.1 Other chronic pancreatitis; E11.65 Type 2 diabetes mellitus with hyperglycemia; E66.9 Obesity, unspecified; E78.1 Pure hyperglyceridemia; E78.5 Hyperlipidemia, unspecified; E86.0 Dehydration; E87.5 Hyperkalemia; F17.200 Nicotine dependence, unspecified, uncomplicated; I10 Essential (primary) hypertension; Z79.4 Long term (current) use of insulin
CPT/HCPCS: 36415; 76705; 80053; 80061; 81003; 82009; 83036; 83605; 83690; 83735; 84100; 84132; 84484; 85025; 87635; 93005; 96361; 96372; 96374; 96375; 99285

== ENCOUNTER 2021-05-04 10:22 | Emergency (ER) | payer MEDICARE ==
[2021-05-04] MEDS ORDERED: SODIUM CHLORIDE 0.9% 1,000 ML IV STA (10:23)
[2021-05-04] MEDS ORDERED: SODIUM CHLORIDE 0.9% 500 ML 500 ML IV ONE (10:24)
[2021-05-04] MEDS ORDERED: INSULIN REGULAR 100 UNIT/ML VIAL (IV) IV ONE ×2 (10:28→13:42)
[2021-05-04 10:29] VITALS: RESP 18; TEMP 100
[2021-05-04 10:52] LABS: Anisocytosis Slight; Basophils # (A) 0.1 k/uL (0-0.2); Basophils % (A) 0 %; Eosinophils # (A) 0.3 k/uL (0-0.7); Eosinophils % (A) 2 %; HCT 37.9 % (34.0-46.0); HGB 11.6 gm/dL (11.4-16.0); Hypochromasia Marked; Lymphocytes # (A) 1.8 k/uL (1.0-4.8); Lymphocytes % (A) 15 %; MCH 26.9 pg (25.0-35.0); MCHC 30.7 g/dL (31.0-37.0); MCV 87.6 fL (80.0-100.0); Mean Platelet Volume 7.2; Monocytes # (A) 0.4 k/uL (0-1.0); Monocytes % (A) 3 %; Neutrophils # (A) 9.2 k/uL (1.3-7.7); Neutrophils % (A) 78 %; Platelet Count 703 k/uL (150-450); RBC 4.32 m/uL (3.80-5.40); WBC 11.8 k/uL (3.8-10.6)
[2021-05-04] MEDS ORDERED: ACETAMINOPHEN TAB 500 MG TAB PO STA (11:24)
--- NOTE | 2021-05-04 11:26 | ED ---
General Adult HPI - General Chief complaint: Upper Respiratory Infection Stated complaint: Weakness Time Seen by Provider: 05/04/21 10:23 Source: patient, EMS, RN notes reviewed Mode of arrival: EMS Limitations: no limitations - History of Present Illness Initial comments: 50-year-old female presents emergency department via EMS with chief complaint cough and cold like symptoms. Patient states she has body aches, fever, productive cough. Patient states she was recently hospitalized for blood sugar issues. She has not checked her blood sugar and couple days she is an insulin- dependent diabetic. Patient denies any chest pain no palpitations no headache or dizziness. Patient states she has some body aches are diffuse no abdominal plain no dysuria no hematuria. - Related Data Home Medications Medication Instructions Recorded Confirmed Atorvastatin [Lipitor] 80 mg PO DAILY 06/25/19 05/04/21 lisinopriL 40 mg PO DAILY 09/24/20 05/04/21 metFORMIN HCL [Glucophage] 500 mg PO DAILY 09/24/20 05/04/21 traZODone HCL 50 - 100 mg PO HS PRN 01/11/21 05/04/21 Ergocalciferol (Vitamin D2) 1,250 mcg PO Q30D 03/03/21 05/04/21 [Drisdol (50,000 Iu)] traMADol HCL 50 mg PO Q6H PRN 03/03/21 05/04/21 Esomeprazole Magnesium [NexIUM] 20 mg PO DAILY 03/28/21 05/04/21 Diphenoxylate HCl/Atropine 1 - 2 tab PO QID PRN 04/26/21 05/04/21 [Lomotil 2.5-0.025 mg Tablet] INSULIN ASPART (NovoLOG) [NovoLOG 18 unit SQ AC-TID 04/26/21 05/04/21 (formulary)] Previous Rx's Medication Instructions Recorded Fenofibrate [Lofibra] 160 mg PO DAILY #30 tab 03/23/19 Insulin Detemir (Levemir) [Levemir] 100 unit SQ HS 30 Days #1 pen 04/30/21 Azithromycin [Zithromax Z-pack (6 0 mg PO DIRECTED #1 packet 05/04/21 tabs)] Allergies Allergy/AdvReac Type Severity Reaction Status Date / Time levofloxacin [From Levaquin] Allergy Unknown Verified 05/04/21 14:12 Review of Systems ROS Statement: Those systems with pertinent positive or pertinent negative responses have been documented in the HPI. ROS Other: All systems not noted in ROS Statement are negative. Past Medical History Past Medical History: Diabetes Mellitus, GERD/Reflux, Hyperlipidemia, Hypertension, Syncope Additional Past Medical History / Comment(s): Pancreatitis twice, IDDM type II, UTI, chronic low back pain, bulging discs, dental abscesses in past. History of Any Multi-Drug Resistant Organisms: None Reported Past Surgical History: Tubal Ligation Additional Past Surgical History / Comment(s): Age 7 had VSD repair Past Anesthesia/Blood Transfusion Reactions: No Reported Reaction Past Psychological History: No Psychological Hx Reported Smoking Status: Former smoker Past Alcohol Use History: None Reported Past Drug Use History: None Reported - Past Family History Mother Family Medical History: No Reported History Additional Family Medical History / Comment(s): Mother was healthy. She is , pt cannot recall cause of . Father Family Medical History: Pneumonia Additional Family Medical History / Comment(s): Father at the age of 67yrs from pneumonia General Exam Limitations: no limitations General appearance: alert, in no apparent distress Head exam: Present: atraumatic, normocephalic, normal inspection Eye exam: Present: normal appearance, PERRL, EOMI. Absent: scleral icterus, conjunctival injection, periorbital swelling ENT exam: Present: normal exam, normal oropharynx, mucous membranes moist Neck exam: Present: normal inspection, full ROM. Absent: tenderness, meningismus, lymphadenopathy Respiratory exam: Present: normal lung sounds bilaterally. Absent: respiratory distress, wheezes, rales, rhonchi, stridor Cardiovascular Exam: Present: regular rate, normal rhythm, normal heart sounds. Absent: systolic murmur, diastolic murmur, rubs, gallop, clicks GI/Abdominal exam: Present: soft, normal bowel sounds. Absent: distended, tenderness, guarding, rebound, rigid Neurological exam: Present: alert Skin exam: Present: warm, dry, intact, normal color. Absent: rash Course Vital Signs 05/04/21 05/04/21 05/04/21 10:27 11:15 12:31 Temperature 100 F H Pulse Rate 79 78 75 Respiratory 18 18 18 Rate Blood Pressure 126/84 118/53 103/59 O2 Sat by Pulse 95 95 98 Oximetry Medical Decision Making - Medical Decision Making 50-year-old female presented for cough and cold like symptoms. Patient has negative influenza negative covid 19 chest x-ray shows bronchitis type changes. Lab work does not reveal any new significant findings patient has chronic kidney disease, patient's lipase is mildly elevated she has no abdominal pain no nausea vomiting. Patient was given Rocephin and discharged on azithromycin she did have hyperglycemia in which patient has been noncompliant with meds. Long discussion regarding her diet and her medications she will follow-up in 24 hours return for worsening symptoms. - Lab Data Result diagrams: 05/04/21 10:30 05/04/21 11:55 Lab Results 05/04/21 05/04/21 05/04/21 Range/Units 10:30 10:30 10:30 WBC 11.8 H (3.8-10.6) k/uL RBC 4.32 (3.80-5.40) m/uL Hgb 11.6 (11.4-16.0) gm/dL Hct 37.9 (34.0-46.0) % MCV 87.6 (80.0-100.0) fL MCH 26.9 (25.0-35.0) pg MCHC 30.7 L (31.0-37.0) g/dL RDW 17.0 H (11.5-15.5) % Plt Count 703 H (150-450) k/uL MPV 7.2 Neutrophils % 78 % Lymphocytes % 15 % Monocytes % 3 % Eosinophils % 2 % Basophils % 0 % Neutrophils # 9.2 H (1.3-7.7) k/uL Lymphocytes # 1.8 (1.0-4.8) k/uL Monocytes # 0.4 (0-1.0) k/uL Eosinophils # 0.3 (0-0.7) k/uL Basophils # 0.1 (0-0.2) k/uL Hypochromasia Marked Anisocytosis Slight Sodium (137-145) mmol/L Potassium (3.5-5.1) mmol/L Chloride (98-107) mmol/L Carbon Dioxide (22-30) mmol/L Anion Gap mmol/L BUN (7-17) mg/dL Creatinine (0.52-1.04) mg/dL Est GFR (CKD-EPI)AfAm (>60 ml/min/1.73 sqM) Est GFR (CKD-EPI)NonAf (>60 ml/min/1.73 sqM) Glucose (74-99) mg/dL POC Glucose (mg/dL) (75-99) mg/dL POC Glu Reproduction Order Processor ID Lactic Ac Sepsis Rflx Plasma Lactic Acid Travon 3.3 H* (0.7-2.0) mmol/L Calcium (8.4-10.2) mg/dL Total Bilirubin (0.2-1.3) mg/dL AST (14-36) U/L ALT (4-34) U/L Alkaline Phosphatase (38-126) U/L Total Protein (6.3-8.2) g/dL Albumin (3.5-5.0) g/dL Amylase (30-110) U/L Lipase (23-300) U/L Urine Color Urine Appearance (Clear) Urine pH (5.0-8.0) Ur Specific [place] (1.001-1.035) Urine Protein (Negative) Urine Glucose (UA) (Negative) Urine Ketones (Negative) Urine Blood (Negative) Urine Nitrite (Negative) Urine Bilirubin (Negative) Urine Urobilinogen (<2.0) mg/dL Ur Leukocyte Esterase (Negative) Coronavirus (PCR) Not Detected (Not Detectd) Influenza Type A RNA (Not Detectd) Influenza Type B (PCR) (Not Detectd) 05/04/21 05/04/21 05/04/21 Range/Units 11:15 11:15 11:19 WBC (3.8-10.6) k/uL RBC (3.80-5.40) m/uL Hgb (11.4-16.0) gm/dL Hct (34.0-46.0) % MCV (80.0-100.0) fL MCH (25.0-35.0) pg MCHC (31.0-37.0) g/dL RDW (11.5-15.5) % Plt Count (150-450) k/uL MPV Neutrophils % % Lymphocytes % % Monocytes % % Eosinophils % % Basophils % % Neutrophils # (1.3-7.7) k/uL Lymphocytes # (1.0-4.8) k/uL Monocytes # (0-1.0) k/uL Eosinophils # (0-0.7) k/uL Basophils # (0-0.2) k/uL Hypochromasia Anisocytosis Sodium (137-145) mmol/L Potassium (3.5-5.1) mmol/L Chloride (98-107) mmol/L Carbon Dioxide (22-30) mmol/L Anion Gap mmol/L BUN (7-17) mg/dL Creatinine (0.52-1.04) mg/dL Est GFR (CKD-EPI)AfAm (>60 ml/min/1.73 sqM) Est GFR (CKD-EPI)NonAf (>60 ml/min/1.73 sqM) Glucose (74-99) mg/dL POC Glucose (mg/dL) (75-99) mg/dL POC Glu Reproduction Order Processor ID Lactic Ac Sepsis Rflx Y Plasma Lactic Acid Travon (0.7-2.0) mmol/L Calcium (8.4-10.2) mg/dL Total Bilirubin (0.2-1.3) mg/dL AST (14-36) U/L ALT (4-34) U/L Alkaline Phosphatase (38-126) U/L Total Protein (6.3-8.2) g/dL Albumin (3.5-5.0) g/dL Amylase (30-110) U/L Lipase (23-300) U/L Urine Color Yellow Urine Appearance Clear (Clear) Urine pH 5.5 (5.0-8.0) Ur Specific [place] 1.025 (1.001-1.035) Urine Protein Trace H (Negative) Urine Glucose (UA) 4+ H (Negative) Urine Ketones Negative (Negative) Urine Blood Negative (Negative) Urine Nitrite Negative (Negative) Urine Bilirubin Negative (Negative) Urine Urobilinogen <2.0 (<2.0) mg/dL Ur Leukocyte Esterase Negative (Negative) Coronavirus (PCR) (Not Detectd) Influenza Type A RNA Not Detected (Not Detectd) Influenza Type B (PCR) Not Detected (Not Detectd) 05/04/21 05/04/21 Range/Units 11:55 13:40 WBC (3.8-10.6) k/uL RBC (3.80-5.40) m/uL Hgb (11.4-16.0) gm/dL Hct (34.0-46.0) % MCV (80.0-100.0) fL MCH (25.0-35.0) pg MCHC (31.0-37.0) g/dL RDW (11.5-15.5) % Plt Count (150-450) k/uL MPV Neutrophils % % Lymphocytes % % Monocytes % % Eosinophils % % Basophils % % Neutrophils # (1.3-7.7) k/uL Lymphocytes # (1.0-4.8) k/uL Monocytes # (0-1.0) k/uL Eosinophils # (0-0.7) k/uL Basophils # (0-0.2) k/uL Hypochromasia Anisocytosis Sodium 136 L (137-145) mmol/L Potassium 4.8 (3.5-5.1) mmol/L Chloride 106 (98-107) mmol/L Carbon Dioxide 21 L (22-30) mmol/L Anion Gap 9 mmol/L BUN 24 H (7-17) mg/dL Creatinine 1.51 H (0.52-1.04) mg/dL Est GFR (CKD-EPI)AfAm 47 (>60 ml/min/1.73 sqM) Est GFR (CKD-EPI)NonAf 41 (>60 ml/min/1.73 sqM) Glucose 416 H (74-99) mg/dL POC Glucose (mg/dL) 334 H (75-99) mg/dL POC Glu Reproduction Order Processor ID Precious Diaz Lactic Ac Sepsis Rflx Plasma Lactic Acid Travon (0.7-2.0) mmol/L Calcium 8.9 (8.4-10.2) mg/dL Total Bilirubin 0.5 (0.2-1.3) mg/dL AST 35 (14-36) U/L ALT 22 (4-34) U/L Alkaline Phosphatase 99 (38-126) U/L Total Protein 6.6 (6.3-8.2) g/dL Albumin 3.6 (3.5-5.0) g/dL Amylase 47 (30-110) U/L Lipase 739 H (23-300) U/L Urine Color Urine Appearance (Clear) Urine pH (5.0-8.0) Ur Specific [place] (1.001-1.035) Urine Protein (Negative) Urine Glucose (UA) (Negative) Urine Ketones (Negative) Urine Blood (Negative) Urine Nitrite (Negative) Urine Bilirubin (Negative) Urine Urobilinogen (<2.0) mg/dL Ur Leukocyte Esterase (Negative) Coronavirus (PCR) (Not Detectd) Influenza Type A RNA (Not Detectd) Influenza Type B (PCR) (Not Detectd) Disposition Clinical Impression: Bronchitis, Hyperglycemia Disposition: HOME SELF-CARE Condition: Stable Instructions (If sedation given, give patient instructions): Upper Respiratory Infection (ED) Additional Instructions: Please return to the Emergency Department if symptoms worsen or any other concerns. Prescriptions: Azithromycin [Zithromax Z-pack (6 tabs)] 0 mg PO DIRECTED #1 packet Is patient prescribed a controlled substance at d/c from ED?: No Referrals: Guillermo Cerda MD [Primary Care Provider] - 1-2 days Time of Disposition: 15:25
--- NOTE | 2021-05-04 11:48 | XR ---
EXAMINATION TYPE: XR chest 2V DATE OF EXAM: 05/04/2021 COMPARISON: 03/30/2021 HISTORY: 50-year-old female with cough and chest pain TECHNIQUE: PA and lateral views FINDINGS: Heart upper limits of normal in size. Mild periportal cuffing. Aorta and bony vasculature within norm al limits. Median sternotomy wires. No consolidation or pleural effusion. IMPRESSION: 1. Borderline heart size. Previous median sternotomy wires. 2. Mild peribronchial cuffing. Correlate for bronchitis or chronic asthma. No focal infiltrate seen.
[2021-05-04 12:15] LABS: Appearance,Urine Clear (Clear); Bilirubin,Urine Negative (Negative); Blood,Urine Negative (Negative); Color,Urine Yellow; Glucose,Urine (UA) 4+ (Negative); Ketones,Urine Negative (Negative); Leukocyte Esterase,Urine Negative (Negative); Nitrite,Urine Negative (Negative); PH, Urine 5.5 (5.0-8.0); Protein,Urine Trace (Negative); Specific Gravity,Urine 1.025 (1.001-1.035); Urobilinogen,Urine <2.0 mg/dL (<2.0)
[2021-05-04 12:22] LABS: Albumin 3.6 g/dL (3.5-5.0); Calcium 8.9 mg/dL (8.4-10.2); Potassium 4.8 mmol/L (3.5-5.1); Total Bilirubin 0.5 mg/dL (0.2-1.3); Total Protein 6.6 g/dL (6.3-8.2)
[2021-05-04 12:31] VITALS: PULSE 75
[2021-05-04 13:41] LABS: Glucose,Whole Blood 334 mg/dL (75-99)
[2021-05-04] MEDS ORDERED: INSULIN ASPART (NovoLOG) 100 UNIT/ML VIAL SQ ONE (15:22)
[2021-05-04] MEDS ORDERED: cefTRIAXone IN SWFI 1,000 MG/10 ML SYRINGE IVP STA (15:22)
[2021-05-04 15:23] LABS: Glucose,Whole Blood 356 mg/dL (75-99)
[2021-05-04 15:46] VITALS: BP 118/78
== END 2021-05-04 15:45 | disposition home or self-care (01) ==
LOC: EC 10:22
DX: J40 Bronchitis, not specified as acute or chronic (principal); E11.9 Type 2 diabetes mellitus without complications; I10 Essential (primary) hypertension; K21.9 Gastro-esophageal reflux disease without esophagitis; F17.200 Nicotine dependence, unspecified, uncomplicated; Z20.822 Contact with and (suspected) exposure to COVID-19; Z79.83 Long term (current) use of bisphosphonates; Z88.1 Allergy status to other antibiotic agents
CPT/HCPCS: 99285; 96372; 96374; 96375; 36415; 80053; 82150; 83605; 83690; 85025; 81003; 87502; 87635; 71046; 96361; 96376; J0696

== ENCOUNTER 2021-05-18 12:24 | Inpatient (IN) | payer MEDICARE ==
[2021-05-18] MEDS ORDERED: SODIUM CHLORIDE 0.9% 1,000 ML IV STA (12:40)
--- NOTE | 2021-05-18 12:46 | ED ---
General Adult HPI - General Chief complaint: Upper Respiratory Infection Stated complaint: High Blood Sugar/Nausea/Weakness Source: patient, EMS Mode of arrival: EMS Limitations: no limitations - History of Present Illness Initial comments: Dictation was produced using [employer] dictation software. please excuse any grammatical, word or spelling errors. Chief Complaint: Patient is a 50-year-old female brought in by EMS for fatigue, nausea and cough History of Present Illness: Patient is a 50-year-old female presents to the emergency department for malaise, nausea and cough. Patient was at home when she didn't feel well. She called EMS was brought to the ER. Patient is instructed by EMS EMS reports that she had stable vitals but had a significantly elevated blood sugar above 600. Patient states she's had a cough for the last 2-3 days. She states that she hasn't been exposed to anybody with COVID-19 symptoms or URI symptoms. States that she has a productive cough. She denies any fevers but complains of chills. No abdominal pain. No diarrhea. The ROS documented in this emergency department record has been reviewed and confirmed by me. Those systems with pertinent positive or negative responses have been documented in the HPI. All other systems are other negative and/or noncontributory. PHYSICAL EXAM: General Impression: Alert and oriented x3, not in acute distress HEENT: Normocephalic atraumatic, extra-ocular movements intact, pupils equal and reactive to light bilaterally, dry mucous membranes Cardiovascular: Heart regular rate and rhythm Chest: Able to complete full sentences, no retractions, no tachypnea Abdomen: abdomen soft, non-tender, non-distended, no organomegaly Musculoskeletal: Pulses present and equal in all extremities, no peripheral edema Motor: no focal deficits noted Neurological: CN II-XII grossly intact, no focal motor or sensory deficits noted Skin: Intact with no visualized rashes Psych: Normal affect and mood ED course: Patient is a 50-year-old female she is insulin-dependent diabetic. She presents to emergency department for chief complaint of malaise, cough and constitutional symptoms. EMS checked her blood sugar which was above 600. Vital signs upon arrival are within acceptable limits. Laboratory evaluation obtained. CBC unremarkable. Metabolic panel shows potassium of 5.9 with acidosis bicarb of 17 gap at 12. Glucose of 543. Lactic acidosis 3.5. Urine does not show any ketones. His 4+ glucose. COVID-19 negative. Chest x-rays unremarkable. Patient suffered from upper respiratory infection. Antibiotic not indicated at this time. She does have leukocytosis and is well-appearing at bedside. She is not hypotensive. Patient has history of lactic acidosis although 3.5 is on the higher limit of her normal. With this is secondary to metformin versus dehydration. She does have elevated BUN to creatinine ratio which suggests prerenal azotemia from dehydration likely. Nonetheless patient be admitted observation for monitoring. Patient be admitted to Dr. vizcarra. Upon discussion with the patient notifying her that she'll be admitted observation she showed me a little boil her right proximal anterior thigh. It is consistent with a furuncle. It is not fluctuant but it does feel mildly indurated. Patient started on oral clindamycin. EKG interpretation: Ventricular rate 80, sinus rhythm,. 152, QRS 85, QTc 387. No CO prolongation, no QTC prolongation, no ST or T-wave changes noted. EKG compared to April 26 2021 showing no changes. Overall, this EKG is unremarkable - Related Data Home Medications Medication Instructions Recorded Confirmed Atorvastatin [Lipitor] 80 mg PO HS 06/25/19 05/18/21 lisinopriL 40 mg PO DAILY 09/24/20 05/18/21 metFORMIN HCL [Glucophage] 500 mg PO DAILY 09/24/20 05/18/21 traZODone HCL 50 - 100 mg PO HS PRN 01/11/21 05/18/21 Ergocalciferol (Vitamin D2) 1,250 mcg PO TU 03/03/21 05/18/21 [Drisdol (50,000 Iu)] Esomeprazole Magnesium [NexIUM] 20 mg PO DAILY 03/28/21 05/18/21 INSULIN ASPART (NovoLOG) [NovoLOG 18 unit SQ AC-TID 04/26/21 05/18/21 (formulary)] Insulin Detemir (Levemir) [Levemir] 20 unit SQ DAILY 05/18/21 05/18/21 Previous Rx's Medication Instructions Recorded Fenofibrate [Lofibra] 160 mg PO DAILY #30 tab 03/23/19 Allergies Allergy/AdvReac Type Severity Reaction Status Date / Time levofloxacin [From Levaquin] Allergy Unknown Verified 05/18/21 12:59 Review of Systems ROS Statement: Those systems with pertinent positive or pertinent negative responses have been documented in the HPI. ROS Other: All systems not noted in ROS Statement are negative. Past Medical History Past Medical History: Diabetes Mellitus, GERD/Reflux, Hyperlipidemia, Hypertens ion, Syncope Additional Past Medical History / Comment(s): Pancreatitis twice, IDDM type II, UTI, chronic low back pain, bulging discs, dental abscesses in past. History of Any Multi-Drug Resistant Organisms: None Reported Past Surgical History: Tubal Ligation Additional Past Surgical History / Comment(s): Age 7 had VSD repair Past Anesthesia/Blood Transfusion Reactions: No Reported Reaction Past Psychological History: No Psychological Hx Reported Smoking Status: Former smoker Past Alcohol Use History: None Reported Past Drug Use History: None Reported - Past Family History Mother Family Medical History: No Reported History Additional Family Medical History / Comment(s): Mother was healthy. She is , pt cannot recall cause of . Father Family Medical History: Pneumonia Additional Family Medical History / Comment(s): Father at the age of 67yrs from pneumonia General Exam Limitations: no limitations Course Vital Signs 05/18/21 12:30 Temperature 98.3 F Pulse Rate 78 Respiratory 18 Rate Blood Pressure 121/75 O2 Sat by Pulse 98 Oximetry Medical Decision Making - Lab Data Result diagrams: 05/18/21 12:47 05/18/21 12:47 Lab Results 05/18/21 05/18/21 05/18/21 Range/Units 12:47 12:47 12:47 WBC 8.1 (3.8-10.6) k/uL RBC 4.43 (3.80-5.40) m/uL Hgb 11.7 (11.4-16.0) gm/dL Hct 38.8 (34.0-46.0) % MCV 87.7 (80.0-100.0) fL MCH 26.4 (25.0-35.0) pg MCHC 30.1 L (31.0-37.0) g/dL RDW 17.2 H (11.5-15.5) % Plt Count 565 H (150-450) k/uL MPV 7.3 Neutrophils % 72 % Lymphocytes % 19 % Monocytes % 4 % Eosinophils % 2 % Basophils % 1 % Neutrophils # 5.8 (1.3-7.7) k/uL Lymphocytes # 1.6 (1.0-4.8) k/uL Monocytes # 0.3 (0-1.0) k/uL Eosinophils # 0.2 (0-0.7) k/uL Basophils # 0.1 (0-0.2) k/uL Hypochromasia Marked Anisocytosis Slight Sodium 132 L (137-145) mmol/L Potassium 5.9 H (3.5-5.1) mmol/L Chloride 103 (98-107) mmol/L Carbon Dioxide 17 L (22-30) mmol/L Anion Gap 12 mmol/L BUN 30 H (7-17) mg/dL Creatinine 1.04 (0.52-1.04) mg/dL Est GFR (CKD-EPI)AfAm 74 (>60 ml/min/1.73 sqM) Est GFR (CKD-EPI)NonAf 64 (>60 ml/min/1.73 sqM) Glucose 543 H* (74-99) mg/dL Plasma Lactic Acid Travon 3.5 H* (0.7-2.0) mmol/L Calcium 9.0 (8.4-10.2) mg/dL Magnesium 1.7 (1.6-2.3) mg/dL Total Bilirubin 0.6 (0.2-1.3) mg/dL AST 69 H (14-36) U/L ALT 30 (4-34) U/L Alkaline Phosphatase 119 (38-126) U/L Total Protein 6.9 (6.3-8.2) g/dL Albumin 3.8 (3.5-5.0) g/dL Urine Color Urine Appearance (Clear) Urine pH (5.0-8.0) Ur Specific [place] (1.001-1.035) Urine Protein (Negative) Urine Glucose (UA) (Negative) Urine Ketones (Negative) Urine Blood (Negative) Urine Nitrite (Negative) Urine Bilirubin (Negative) Urine Urobilinogen (<2.0) mg/dL Ur Leukocyte Esterase (Negative) Coronavirus (PCR) (Not Detectd) 05/18/21 05/18/21 Range/Units 12:47 12:47 WBC (3.8-10.6) k/uL RBC (3.80-5.40) m/uL Hgb (11.4-16.0) gm/dL Hct (34.0-46.0) % MCV (80.0-100.0) fL MCH (25.0-35.0) pg MCHC (31.0-37.0) g/dL RDW (11.5-15.5) % Plt Count (150-450) k/uL MPV Neutrophils % % Lymphocytes % % Monocytes % % Eosinophils % % Basophils % % Neutrophils # (1.3-7.7) k/uL Lymphocytes # (1.0-4.8) k/uL Monocytes # (0-1.0) k/uL Eosinophils # (0-0.7) k/uL Basophils # (0-0.2) k/uL Hypochromasia Anisocytosis Sodium (137-145) mmol/L Potassium (3.5-5.1) mmol/L Chloride (98-107) mmol/L Carbon Dioxide (22-30) mmol/L Anion Gap mmol/L BUN (7-17) mg/dL Creatinine (0.52-1.04) mg/dL Est GFR (CKD-EPI)AfAm (>60 ml/min/1.73 sqM) Est GFR (CKD-EPI)NonAf (>60 ml/min/1.73 sqM) Glucose (74-99) mg/dL Plasma Lactic Acid Travon (0.7-2.0) mmol/L Calcium (8.4-10.2) mg/dL Magnesium (1.6-2.3) mg/dL Total Bilirubin (0.2-1.3) mg/dL AST (14-36) U/L ALT (4-34) U/L Alkaline Phosphatase (38-126) U/L Total Protein (6.3-8.2) g/dL Albumin (3.5-5.0) g/dL Urine Color Light Yellow Urine Appearance Clear (Clear) Urine pH 5.0 (5.0-8.0) Ur Specific [place] 1.022 (1.001-1.035) Urine Protein Negative (Negative) Urine Glucose (UA) 4+ H (Negative) Urine Ketones Negative (Negative) Urine Blood Negative (Negative) Urine Nitrite Negative (Negative) Urine Bilirubin Negative (Negative) Urine Urobilinogen <2.0 (<2.0) mg/dL Ur Leukocyte Esterase Negative (Negative) Coronavirus (PCR) Not Detected (Not Detectd) Disposition Clinical Impression: Furuncle, Lactic acidosis, Dehydration Disposition: ADMITTED IP TO THIS [facility] Condition: Fair Referrals: Guillermo Vizcarra MD [Primary Care Provider] - 1-2 days
--- NOTE | 2021-05-18 13:00 | XR ---
EXAMINATION TYPE: XR chest 1V portable DATE OF EXAM: 05/18/2021 COMPARISON: Chest x-ray May 04, 2021 HISTORY: Weakness and cough. Nausea. TECHNIQUE: Single AP portable frontal upright view of the chest is obtained. FINDINGS: There is no suspicious focal air space opacity, pleural effusion, or pneumothorax seen. T he cardiac silhouette size is upper limits of normal. Overlying sternal wires are redemonstrated The osseous structures are intact. IMPRESSION: No acute process.
[2021-05-18 13:03] LABS: Anisocytosis Slight; Basophils # (A) 0.1 k/uL (0-0.2); Basophils % (A) 1 %; Eosinophils # (A) 0.2 k/uL (0-0.7); Eosinophils % (A) 2 %; HCT 38.8 % (34.0-46.0); HGB 11.7 gm/dL (11.4-16.0); Hypochromasia Marked; Lymphocytes # (A) 1.6 k/uL (1.0-4.8); Lymphocytes % (A) 19 %; MCH 26.4 pg (25.0-35.0); MCHC 30.1 g/dL (31.0-37.0); MCV 87.7 fL (80.0-100.0); Mean Platelet Volume 7.3; Monocytes # (A) 0.3 k/uL (0-1.0); Monocytes % (A) 4 %; Neutrophils # (A) 5.8 k/uL (1.3-7.7); Neutrophils % (A) 72 %; Platelet Count 565 k/uL (150-450); RBC 4.43 m/uL (3.80-5.40); RDW 17.2 % (11.5-15.5); WBC 8.1 k/uL (3.8-10.6)
[2021-05-18 13:18] LABS: Albumin 3.8 g/dL (3.5-5.0); Magnesium 1.7 mg/dL (1.6-2.3); Potassium 5.9 mmol/L (3.5-5.1); Total Bilirubin 0.6 mg/dL (0.2-1.3); Total Protein 6.9 g/dL (6.3-8.2)
[2021-05-18 13:45] LABS: Appearance,Urine Clear (Clear); Bilirubin,Urine Negative (Negative); Blood,Urine Negative (Negative); Color,Urine Light Yellow; Glucose,Urine (UA) 4+ (Negative); Ketones,Urine Negative (Negative); Leukocyte Esterase,Urine Negative (Negative); Nitrite,Urine Negative (Negative); Protein,Urine Negative (Negative); Specific Gravity,Urine 1.022 (1.001-1.035); Urobilinogen,Urine <2.0 mg/dL (<2.0)
[2021-05-18] MEDS ORDERED: INSULIN REGULAR 100 UNIT/ML VIAL (IV) IV ONE (14:53)
[2021-05-18] MEDS ORDERED: NALOXONE 0.4 MG/ML 1 ML VIAL IV PRN (15:03)
[2021-05-18 15:11] LABS: INR 0.9 (<1.2); Prothrombin Time 10.3 sec (9.0-12.0)
[2021-05-18 15:12] LABS: Partial Thromboplastin Time 21.2 sec (22.0-30.0)
[2021-05-18] MEDS: SODIUM CHLORIDE 0.9% 1,000 ML IV SCH ×2 (15:22→23:13)
[2021-05-18] MEDS: CLINDAMYCIN 150 MG CAP PO SCH ×2 (15:22→23:18)
[2021-05-18 15:24] LABS: Glucose,Whole Blood 389 mg/dL (75-99)
[2021-05-18 16:41] LABS: Glucose,Whole Blood 227 mg/dL (75-99)
[2021-05-18] MEDS: HYDROcodone/APAP 5-325MG 1 EACH TAB PO PRN (22:02)
[2021-05-18] MEDS: traZODone HCL 50 MG TAB PO PRN (22:03)
[2021-05-19] MEDS: HYDROcodone/APAP 5-325MG 1 EACH TAB PO PRN ×3 (03:32→21:09)
[2021-05-19] MEDS: SODIUM CHLORIDE 0.9% 1,000 ML IV SCH ×3 (03:33→21:11)
[2021-05-19 07:48] LABS: Glucose,Whole Blood 228 mg/dL (75-99)
[2021-05-19] MEDS: INSULIN ASPART (NovoLOG) 100 UNIT/ML VIAL SQ SCH ×4 (08:34→21:10)
[2021-05-19] MEDS: PANTOPRAZOLE 40 MG TABLET PO SCH (08:34)
[2021-05-19] MEDS: metFORMIN 500 MG TAB PO SCH (08:34)
[2021-05-19] MEDS: CLINDAMYCIN 150 MG CAP PO SCH ×2 (08:35→15:18)
[2021-05-19] MEDS: FENOFIBRATE 160 MG TAB PO SCH (08:35)
[2021-05-19] MEDS: lisinopriL 20 MG TAB PO SCH (08:36)
[2021-05-19] MEDS: INSULIN DETEMIR (LEVEMIR) 100 UNIT/ML SYR SQ SCH (08:58)
[2021-05-19 11:20] LABS: Glucose,Whole Blood 334 mg/dL (75-99)
[2021-05-19] MEDS ORDERED: KETOROLAC 30 MG/ML 1 ML VIAL IVP STA (15:59)
[2021-05-19] MEDS: ONDANSETRON 4 MG/2 ML VIAL IVP PRN (16:33)
[2021-05-19 16:58] LABS: Glucose,Whole Blood 236 mg/dL (75-99)
--- NOTE | 2021-05-19 17:40 | HP ---
HISTORY AND PHYSICAL CHIEF COMPLAINT: Cough, shortness of breath, uncontrolled blood sugar, acidosis and pancreatitis. HISTORY OF PRESENT ILLNESS: This is another admission once again for this 50-year-old obese white female. She has been in and out of the hospital a great deal lately secondary to uncontrolled diabetes, hypertriglyceridemia, chronic pancreatitis. She came to the emergency room because she had developed a URI with shortness of breath and cough and was dehydrated. Her blood sugar was 543, but she was not in DKA. Lipase was elevated, but not nearly as high as it has been in the past. REVIEW OF SYSTEMS: She denies any headaches, chest pain, hematemesis, melena, jaundice, dysuria, frequency, urgency, incontinence, etc. Past medical history, family history, and personal and social histories are all unchanged from her recent admitting and discharge summaries. MEDICATIONS: Medications include Levemir, trazodone, lisinopril, NovoLog and fenofibrate. She does not drink alcohol. PHYSICAL EXAMINATION: Blood pressure 119/64 with a pulse of 110, respirations of 39, and she is afebrile. She appeared to be overweight and in no acute distress. She was dehydrated. Lymph nodes were not enlarged. Head, ears, eyes, nose, mouth and throat were normal except for dry mucous membranes. Chest was clear. Cardiac exam demonstrated normal sinus rhythm with tachycardia. The abdomen was protuberant and slightly tender over the epigastrium. Bowel sounds were present. Extremities were normal. Neurologically she was intact. She is admitted to the hospital with the diagnoses: 1. Uncontrolled diabetes mellitus. 2. Dehydration. 3. Chronic relapsing pancreatitis. 4. Hypertriglyceridemia. PLAN: 1. Bedrest. 2. IV fluids. 3. Rehydrate. MMODL / IJN: [id number] /
--- NOTE | 2021-05-19 17:55 | PN ---
PROGRESS NOTE DATE OF SERVICE: 05/19/2021 CHIEF COMPLAINT: Uncontrolled diabetes and dehydration. HISTORY OF PRESENT ILLNESS: This lady is doing a lot better. She feels better and she is less nauseated. Sugars are coming down. PHYSICAL EXAMINATION: Her chest is clear. Cardiac exam demonstrates sinus rhythm and a slower rate. The abdomen is soft. She is minimally tender over the epigastrium. IMPRESSION: 1. Uncontrolled diabetes. 2. Dehydration. 3. Hypertriglyceridemia. 4. Chronic relapsing pancreatitis. PLAN: Continue with rehydration and management of her blood sugars before she is discharged. MMODL / IJN: [id number] /
[2021-05-19 19:46] LABS: Glucose,Whole Blood 254 mg/dL (75-99)
[2021-05-19] MEDS: traZODone HCL 50 MG TAB PO PRN (21:10)
[2021-05-19] MEDS: ATORVASTATIN 80 MG TAB PO SCH (21:10)
[2021-05-20] MEDS: CLINDAMYCIN 150 MG CAP PO SCH ×4 (00:46→23:27)
[2021-05-20] MEDS: HYDROcodone/APAP 5-325MG 1 EACH TAB PO PRN ×3 (03:17→20:56)
[2021-05-20] MEDS: ONDANSETRON 4 MG/2 ML VIAL IVP PRN ×2 (03:55→22:12)
[2021-05-20 07:55] LABS: Glucose,Whole Blood 250 mg/dL (75-99)
[2021-05-20] MEDS: INSULIN DETEMIR (LEVEMIR) 100 UNIT/ML SYR SQ SCH (08:07)
[2021-05-20] MEDS: metFORMIN 500 MG TAB PO SCH (08:08)
[2021-05-20] MEDS: FENOFIBRATE 160 MG TAB PO SCH (08:08)
[2021-05-20] MEDS: PANTOPRAZOLE 40 MG TABLET PO SCH (08:08)
[2021-05-20] MEDS: lisinopriL 20 MG TAB PO SCH (08:08)
[2021-05-20] MEDS: INSULIN ASPART (NovoLOG) 100 UNIT/ML VIAL SQ SCH ×7 (08:08→21:48)
[2021-05-20] MEDS: SODIUM CHLORIDE 0.9% 1,000 ML IV SCH ×3 (08:17→20:57)
[2021-05-20 10:57] VITALS: BMI 44.3
[2021-05-20 11:29] LABS: Glucose,Whole Blood 259 mg/dL (75-99)
[2021-05-20] MEDS: HYDROmorphone 1 MG/ML 1 ML SYRINGE IVP PRN (16:49)
[2021-05-20 16:58] LABS: Glucose,Whole Blood 177 mg/dL (75-99)
--- NOTE | 2021-05-20 18:28 | PN ---
PROGRESS NOTE I am covering for Dr. Cerda. DATE OF SERVICE: 05/20/2021 This 50-year-old woman who was admitted with uncontrolled diabetes mellitus as well as relapsing pancreatitis is complaining of severe pain at this time. The blood sugars have been noted. Triglycerides are elevated. Lipase is also 625. No chest pain. No palpitations. Past medical history reviewed. REVIEW OF SYSTEMS: CARDIOVASCULAR SYSTEM: No angina, palpitations. RESPIRATION: As mentioned earlier. GI: As mentioned earlier. NERVOUS SYSTEM: No numbness, weakness. CURRENT MEDICATIONS: Reviewed. They include Retsof, Lipitor, Cleocin. Lofibra, Dilaudid. Other medications reviewed. PHYSICAL EXAMINATION: Patient is alert, oriented x3. Pulse 71, blood pressure 102/58, respiration 14, temperature 98.3. HEENT: Conjunctivae normal. Oral mucosa moist. CARDIOVASCULAR: S1, S2 muffled. RESPIRATION: Breath sounds diminished at the bases. A few scattered rhonchi and crackles. ABDOMEN: Soft. Mild diffuse tenderness present. LEGS: No edema. No swelling. NERVOUS SYSTEM: No focal deficit. LABS: Reviewed. Accu-Cheks 254, 177. Lipase is noted. ASSESSMENT: 1. Uncontrolled diabetes mellitus and hyperglycemia. 2. Severe abdominal pain with acute on chronic pancreatitis, relapsing. 3. Hypertriglyceridemia. 4. Dehydration. RECOMMENDATIONS AND DISCUSSION: I recommend to continue current medications, continue symptomatic treatment. Increase the pain medication. Repeat labs. See orders for further details. Prognosis guarded. Monitor blood sugars closely. Further recommendations to follow. MMODL / IJN: [id number] /
[2021-05-20] MEDS: traZODone HCL 50 MG TAB PO PRN (20:56)
[2021-05-20] MEDS: HEPARIN SODIUM,PORCINE/PF 5,000 UNIT/0.5 ML SYRINGE SQ SCH (20:56)
[2021-05-20] MEDS: ATORVASTATIN 80 MG TAB PO SCH (20:56)
[2021-05-20 21:30] LABS: Glucose,Whole Blood 236 mg/dL (75-99)
[2021-05-21] MEDS: HYDROcodone/APAP 5-325MG 1 EACH TAB PO PRN ×2 (01:57→23:22)
[2021-05-21] MEDS: ONDANSETRON 4 MG/2 ML VIAL IVP PRN ×2 (06:08→17:12)
[2021-05-21] MEDS: SODIUM CHLORIDE 0.9% 1,000 ML IV SCH ×3 (06:09→22:10)
[2021-05-21 07:03] LABS: Glucose,Whole Blood 192 mg/dL (75-99)
[2021-05-21] MEDS: INSULIN ASPART (NovoLOG) 100 UNIT/ML VIAL SQ SCH ×7 (08:00→22:07)
[2021-05-21] MEDS: PANTOPRAZOLE 40 MG TABLET PO SCH (08:00)
[2021-05-21] MEDS: INSULIN DETEMIR (LEVEMIR) 100 UNIT/ML SYR SQ SCH (08:00)
[2021-05-21] MEDS: HEPARIN SODIUM,PORCINE/PF 5,000 UNIT/0.5 ML SYRINGE SQ SCH ×2 (08:00→22:07)
[2021-05-21] MEDS: lisinopriL 20 MG TAB PO SCH (08:01)
[2021-05-21] MEDS: FENOFIBRATE 160 MG TAB PO SCH (08:01)
[2021-05-21] MEDS: metFORMIN 500 MG TAB PO SCH (08:01)
[2021-05-21] MEDS: HYDROmorphone 1 MG/ML 1 ML SYRINGE IVP PRN ×3 (08:16→19:20)
[2021-05-21] MEDS: CLINDAMYCIN 150 MG CAP PO SCH ×3 (08:17→23:22)
[2021-05-21 09:00] LABS: Basophils # (A) 0.04 X 10*3/uL (0.00-0.10); Basophils % (A) 0.5 %; Eosinophils # (A) 0.17 X 10*3/uL (0.04-0.35); Eosinophils % (A) 2.3 %; HCT 33.7 % (37.2-46.3); HGB 9.9 g/dL (12.0-15.0); Immature Grans, Automated 0.3 %; Lymphocytes # (A) 2.23 X 10*3/uL (0.90-5.00); Lymphocytes % (A) 29.7 %; MCH 25.5 pg (27.0-32.0); MCHC 29.4 g/dL (32.0-37.0); MCV 86.9 fL (80.0-97.0); Mean Platelet Volume 9.7 fL (9.5-12.2); Monocytes # (A) 0.39 X 10*3/uL (0.20-1.00); Monocytes % (A) 5.2 %; NRBC Per 100 WBC 0 /100 WBCS (0.0-0.0); Neutrophils # (A) 4.65 X 10*3/uL (1.80-7.70); Platelet Count 477 X 10*3/uL (140-440); RBC 3.88 X 10*6/uL (4.10-5.20); RDW 17.8 % (11.5-14.5)
[2021-05-21 09:08] LABS: ALT 36 U/L (8-44); AST 73 U/L (13-35); African American GFR (CKD) 68.8 (60.0-200.0); Albumin 3.5 g/dL (3.8-4.9); Albumin/Globulin Ratio 1.46 (1.60-3.17); Alkaline Phosphatase 84 U/L (41-126); BUN/Creat Ratio 21.64 Ratio (12.00-20.00); Blood Urea Nitrogen 23.8 mg/dL (9.0-27.0); Calcium 8.9 mg/dL (8.7-10.3); Carbon Dioxide 19.2 mmol/L (20.0-27.5); Chloride 107 mmol/L (96-109); Globulin 2.4 g/dL (1.6-3.3); Glucose 191 mg/dL (70-110); Non-African American GFR(CKD) 59.3 (60.0-200.0); Potassium 5.9 mmol/L (3.5-5.5); Sodium 137 mmol/L (135-145); Total Bilirubin <0.15 mg/dL (0.30-1.20); Total Protein 5.9 g/dL (6.2-8.2)
[2021-05-21 11:46] LABS: Glucose,Whole Blood 225 mg/dL (75-99)
[2021-05-21 16:53] LABS: Glucose,Whole Blood 164 mg/dL (75-99)
--- NOTE | 2021-05-21 19:07 | PN ---
PROGRESS NOTE DATE OF SERVICE: 05/21/2021 This 50-year-old woman who was admitted with uncontrolled blood sugars also had significant pain. No chest pain. No palpitations. No fever. PHYSICAL EXAMINATION: Pulse 65, blood pressure 118/70, respirations 17, temperature 97.. HEENT: Conjunctivae normal. Oral mucosa moist. CARDIOVASCULAR: S1, S2 muffled. RESPIRATION: Breath sounds diminished at the bases. ABDOMEN: Soft. Mild diffuse tenderness. LEGS: No edema. No swelling. NERVOUS SYSTEM: No focal deficit. LABS: Accu-Cheks 192, 225. WBC noted. ASSESSMENT: 1. Uncontrolled diabetes mellitus, type 2, and hyperglycemia. 2. Severe abdominal pain with acute on chronic pancreatitis, relapsing. 3. Hypertriglyceridemia. 4. Dehydration. RECOMMENDATIONS AND DISCUSSION: I recommend to continue current medications, continue with the monitoring, symptomatic treatment. Otherwise, will repeat amylase and lipase tomorrow. See orders for further details. MMODL / IJN: [id number] /
[2021-05-21 20:30] LABS: Glucose,Whole Blood 148 mg/dL (75-99)
[2021-05-21] MEDS: ATORVASTATIN 80 MG TAB PO SCH (22:08)
[2021-05-22] MEDS: HYDROmorphone 1 MG/ML 1 ML SYRINGE IVP PRN ×3 (02:20→15:49)
[2021-05-22] MEDS: SODIUM CHLORIDE 0.9% 1,000 ML IV SCH ×3 (05:01→21:04)
[2021-05-22 06:30] LABS: Glucose,Whole Blood 191 mg/dL (75-99)
[2021-05-22] MEDS: HYDROcodone/APAP 5-325MG 1 EACH TAB PO PRN ×2 (07:29→14:50)
[2021-05-22] MEDS: PANTOPRAZOLE 40 MG TABLET PO SCH (07:30)
[2021-05-22] MEDS: metFORMIN 500 MG TAB PO SCH (07:30)
[2021-05-22] MEDS: lisinopriL 20 MG TAB PO SCH (07:30)
[2021-05-22] MEDS: FENOFIBRATE 160 MG TAB PO SCH (07:30)
[2021-05-22] MEDS: INSULIN ASPART (NovoLOG) 100 UNIT/ML VIAL SQ SCH ×7 (07:31→21:04)
[2021-05-22] MEDS: CLINDAMYCIN 150 MG CAP PO SCH ×2 (07:31→14:50)
[2021-05-22] MEDS: HEPARIN SODIUM,PORCINE/PF 5,000 UNIT/0.5 ML SYRINGE SQ SCH ×2 (07:31→21:04)
[2021-05-22] MEDS: INSULIN DETEMIR (LEVEMIR) 100 UNIT/ML SYR SQ SCH (07:31)
[2021-05-22 09:07] LABS: Basophils # (A) 0.03 X 10*3/uL (0.00-0.10); Basophils % (A) 0.5 %; Eosinophils # (A) 0.14 X 10*3/uL (0.04-0.35); Eosinophils % (A) 2.1 %; HCT 32.8 % (37.2-46.3); HGB 9.5 g/dL (12.0-15.0); Immature Grans, Automated 0.5 %; Lymphocytes # (A) 1.91 X 10*3/uL (0.90-5.00); MCH 24.9 pg (27.0-32.0); MCV 85.9 fL (80.0-97.0); Mean Platelet Volume 9.2 fL (9.5-12.2); Monocytes # (A) 0.35 X 10*3/uL (0.20-1.00); Monocytes % (A) 5.3 %; NRBC Per 100 WBC 0 /100 WBCS (0.0-0.0); Neutrophils # (A) 4.13 X 10*3/uL (1.80-7.70); Neutrophils % (A) 62.6 %; Platelet Count 447 X 10*3/uL (140-440); RBC 3.82 X 10*6/uL (4.10-5.20); RDW 17.8 % (11.5-14.5); WBC 6.59 X 10*3/uL (4.50-10.00)
[2021-05-22 09:17] LABS: Amylase 22 U/L (23-121); Lipase 78 U/L (14-63)
[2021-05-22 09:31] LABS: Chol/HDL Ratio 6.75 Ratio
[2021-05-22 10:01] LABS: ALT 31 U/L (8-44); AST 49 U/L (13-35); African American GFR (CKD) 68.8 (60.0-200.0); Albumin 3.5 g/dL (3.8-4.9); Albumin/Globulin Ratio 1.52 (1.60-3.17); Alkaline Phosphatase 83 U/L (41-126); BUN/Creat Ratio 16.82 Ratio (12.00-20.00); Blood Urea Nitrogen 18.5 mg/dL (9.0-27.0); Calcium 9.2 mg/dL (8.7-10.3); Carbon Dioxide 20.2 mmol/L (20.0-27.5); Chloride 103 mmol/L (96-109); Globulin 2.3 g/dL (1.6-3.3); Glucose 273 mg/dL (70-110); Non-African American GFR(CKD) 59.3 (60.0-200.0); Potassium 6.4 mmol/L (3.5-5.5); Sodium 133 mmol/L (135-145); Total Bilirubin <0.15 mg/dL (0.30-1.20); Total Protein 5.8 g/dL (6.2-8.2)
[2021-05-22] MEDS ORDERED: DEXTROSE 50% SYRINGE 50 ML IVP STA (10:37)
[2021-05-22] MEDS ORDERED: INSULIN REGULAR 100 UNIT/ML VIAL (IV) IV ONE (10:37)
[2021-05-22 11:26] LABS: Glucose,Whole Blood 220 mg/dL (75-99)
[2021-05-22 12:05] LABS: Glucose,Whole Blood 261 mg/dL (75-99)
[2021-05-22] MEDS: SODIUM POLYSTYRENE SULFONATE 15 GM/60 ML BOTTLE PO SCH (14:50)
[2021-05-22 16:44] LABS: Glucose,Whole Blood 183 mg/dL (75-99)
[2021-05-22] MEDS: ONDANSETRON 4 MG/2 ML VIAL IVP PRN (16:53)
[2021-05-22 20:57] LABS: Glucose,Whole Blood 298 mg/dL (75-99)
[2021-05-22] MEDS: ATORVASTATIN 80 MG TAB PO SCH (21:04)
--- NOTE | 2021-05-22 23:44 | P.PN ---
Subjective Progress Note Date: 05/22/21 This is a 50 year old female who is a patient of Dr. Cerda who was recently admitted with uncontrolled elevated blood sugars and also significant abdominal pain. Patient is maintained on gentle IV hydration. Encouraged oral intake and increased activity as tolerated. Blood sugars more controlled currently. Potassium found to be above 6 today and will correct and repeat am labs. Patient denies chest pain, shortness of breath, or palpitations. Patient is afebrile. No reports of nausea or vomiting and tolerating diet. PHYSICAL EXAMINATION: GENERAL: The patient is alert and oriented x4, morbidly obese, Well developed, well nourished. Lethargic although easily arousable HEENT: Pupils are round and equally reacting to light. EOMI. does have scleral icterus. No conjunctival pallor. Normocephalic, atraumatic. No pharyngeal erythema. No thyromegaly. CARDIOVASCULAR: S1 and S2 muffled PULMONARY: diminished breath sounds bilaterally with Few scattered rhonchi noted. ABDOMEN: soft. obese. Non-distended, normoactive bowel sounds. No palpable organomegaly. MUSCULOSKELETAL: No joint swelling or deformity. EXTREMITIES: No cyanosis, clubbing, or pedal edema. NEUROLOGICAL: Gross neurological examination did not reveal any focal deficits. SKIN: No rashes. Assessment: Diabetes mellitus type 2, uncontrolled with hyperglycemia Severe abdominal pain with acute on chronic pancreatitis, relapsing Hypertriglyceridemia Dehydration Hyperkalemia Full code Plan: Recommend to continue to hydrate and encourage oral intake. Amylase and lipase improved. Potassium found to be above 6 and will give IV dextrose and IV insulin along with kayexalate and repeat am labs. Recommend to continue with low potassium diet as well. Possible discharge in 24 hours. Objective - Vital Signs Vital signs: Vital Signs Temp 98.5 F 05/22/21 14:00 Pulse 69 05/22/21 14:00 Resp 16 05/22/21 07:15 BP 92/50 05/22/21 14:00 Pulse Ox 97 05/22/21 14:00 Intake & Output 05/21/21 05/22/21 05/22/21 18:59 06:59 18:59 Other: Voiding Method Toilet Toilet # Voids 1 4 - Labs CBC & Chem 7: 05/22/21 05:22 05/22/21 05:22 Labs: Abnormal Lab Results - Last 24 Hours (Table) 05/21/21 05/21/21 05/22/21 Range/Units 16:52 20:29 05:22 RBC 3.82 L (4.10-5.20) X 10*6/uL Hgb 9.5 L (12.0-15.0) g/dL Hct 32.8 L (37.2-46.3) % MCH 24.9 L (27.0-32.0) pg MCHC 29.0 L (32.0-37.0) g/dL RDW 17.8 H (11.5-14.5) % Plt Count 447 H (140-440) X 10*3/uL MPV 9.2 L (9.5-12.2) fL Sodium (135-145) mmol/L Potassium (3.5-5.5) mmol/L Anion Gap (10.00-18.00) mmol/L Est GFR (CKD-EPI)NonAf (60.0-200.0) Glucose (70-110) mg/dL POC Glucose (mg/dL) 164 H 148 H (75-99) mg/dL Total Bilirubin (0.30-1.20) mg/dL AST (13-35) U/L Total Protein (6.2-8.2) g/dL Albumin (3.8-4.9) g/dL Albumin/Globulin Ratio (1.60-3.17) g/dL Triglycerides (0.00-149.00) mg/dL HDL Cholesterol (40.00-60.00) mg/dL Amylase (23-121) U/L Lipase (14-63) U/L 05/22/21 05/22/21 05/22/21 Range/Units 05:22 06:28 11:24 RBC (4.10-5.20) X 10*6/uL Hgb (12.0-15.0) g/dL Hct (37.2-46.3) % MCH (27.0-32.0) pg MCHC (32.0-37.0) g/dL RDW (11.5-14.5) % Plt Count (140-440) X 10*3/uL MPV (9.5-12.2) fL Sodium 133 L (135-145) mmol/L Potassium 6.4 H* (3.5-5.5) mmol/L Anion Gap 9.80 L (10.00-18.00) mmol/L Est GFR (CKD-EPI)NonAf 59.3 L (60.0-200.0) Glucose 273 H (70-110) mg/dL POC Glucose (mg/dL) 191 H 220 H (75-99) mg/dL Total Bilirubin <0.15 L (0.30-1.20) mg/dL AST 49 H (13-35) U/L Total Protein 5.8 L (6.2-8.2) g/dL Albumin 3.5 L (3.8-4.9) g/dL Albumin/Globulin Ratio 1.52 L (1.60-3.17) g/dL Triglycerides 496.00 H (0.00-149.00) mg/dL HDL Cholesterol 23.10 L (40.00-60.00) mg/dL Amylase 22 L (23-121) U/L Lipase 78 H (14-63) U/L 05/22/21 Range/Units 12:03 RBC (4.10-5.20) X 10*6/uL Hgb (12.0-15.0) g/dL Hct (37.2-46.3) % MCH (27.0-32.0) pg MCHC (32.0-37.0) g/dL RDW (11.5-14.5) % Plt Count (140-440) X 10*3/uL MPV (9.5-12.2) fL Sodium (135-145) mmol/L Potassium (3.5-5.5) mmol/L Anion Gap (10.00-18.00) mmol/L Est GFR (CKD-EPI)NonAf (60.0-200.0) Glucose (70-110) mg/dL POC Glucose (mg/dL) 261 H (75-99) mg/dL Total Bilirubin (0.30-1.20) mg/dL AST (13-35) U/L Total Protein (6.2-8.2) g/dL Albumin (3.8-4.9) g/dL Albumin/Globulin Ratio (1.60-3.17) g/dL Triglycerides (0.00-149.00) mg/dL HDL Cholesterol (40.00-60.00) mg/dL Amylase (23-121) U/L Lipase (14-63) U/L
[2021-05-23] MEDS: CLINDAMYCIN 150 MG CAP PO SCH ×4 (00:22→20:55)
[2021-05-23] MEDS: HYDROmorphone 1 MG/ML 1 ML SYRINGE IVP PRN ×3 (01:39→14:45)
[2021-05-23] MEDS: SODIUM CHLORIDE 0.9% 1,000 ML IV SCH ×3 (06:06→16:58)
[2021-05-23] MEDS: HYDROcodone/APAP 5-325MG 1 EACH TAB PO PRN ×2 (06:24→18:30)
[2021-05-23 07:06] LABS: Glucose,Whole Blood 198 mg/dL (75-99)
[2021-05-23] MEDS: lisinopriL 20 MG TAB PO SCH (07:16)
[2021-05-23] MEDS: HEPARIN SODIUM,PORCINE/PF 5,000 UNIT/0.5 ML SYRINGE SQ SCH ×2 (07:16→20:55)
[2021-05-23] MEDS: FENOFIBRATE 160 MG TAB PO SCH (07:16)
[2021-05-23] MEDS: SODIUM POLYSTYRENE SULFONATE 15 GM/60 ML BOTTLE PO SCH (07:17)
[2021-05-23] MEDS: metFORMIN 500 MG TAB PO SCH (07:19)
[2021-05-23] MEDS: PANTOPRAZOLE 40 MG TABLET PO SCH (07:27)
[2021-05-23] MEDS: INSULIN ASPART (NovoLOG) 100 UNIT/ML VIAL SQ SCH ×7 (07:30→20:55)
[2021-05-23] MEDS: INSULIN DETEMIR (LEVEMIR) 100 UNIT/ML SYR SQ SCH (07:31)
[2021-05-23 09:57] LABS: African American GFR (CKD) 77.2 (60.0-200.0); Anion Gap 12.5 mmol/L (10.00-18.00); BUN/Creat Ratio 16.5 Ratio (12.00-20.00); Blood Urea Nitrogen 16.5 mg/dL (9.0-27.0); Carbon Dioxide 19.5 mmol/L (20.0-27.5); Non-African American GFR(CKD) 66.6 (60.0-200.0); Potassium 6.4 mmol/L (3.5-5.5)
[2021-05-23] MEDS ORDERED: DEXTROSE 50% SYRINGE 50 ML IVP STA (10:17)
[2021-05-23] MEDS ORDERED: INSULIN REGULAR 100 UNIT/ML VIAL (IV) IV ONE (10:17)
[2021-05-23] MEDS ORDERED: SODIUM ZIRCONIUM CYCLOSILICATE 10 GM PACKET PO ONE (10:35)
[2021-05-23 11:43] LABS: Glucose,Whole Blood 276 mg/dL (75-99)
[2021-05-23 16:38] LABS: Glucose,Whole Blood 203 mg/dL (75-99)
[2021-05-23 20:35] LABS: Glucose,Whole Blood 280 mg/dL (75-99)
[2021-05-23] MEDS: ATORVASTATIN 80 MG TAB PO SCH (20:55)
[2021-05-24] MEDS: HYDROcodone/APAP 5-325MG 1 EACH TAB PO PRN ×4 (00:20→17:51)
[2021-05-24] MEDS: SODIUM CHLORIDE 0.9% 1,000 ML IV SCH ×3 (03:26→16:40)
[2021-05-24] MEDS: ONDANSETRON 4 MG/2 ML VIAL IVP PRN (03:45)
--- NOTE | 2021-05-24 05:52 | P.PN ---
Subjective Progress Note Date: 05/23/21 This is a 50 year old female who is a patient of Dr. Cerda who was recently admitted with uncontrolled elevated blood sugars and also significant abdominal pain. Patient is maintained on gentle IV hydration. Encouraged oral intake and increased activity as tolerated. Blood sugars more controlled currently. Potassium found to be above 6 today and will correct and repeat am labs. Patient denies chest pain, shortness of breath, or palpitations. Patient is afebrile. No reports of nausea or vomiting and tolerating diet. 05/23/2021 Patient is seen and evaluated this morning. Patient found to have elevated potassium again of 6.4 after correction and will attempt again. Continue with kayexalate although patient does not tolerate well. Will give a dose of lokelma and repeat am labs. Encouraged increased activity and will change diet to low potassium diet. Patient denies chest pain or shortness of breath. Patient is afebrile. No reported nausea or vomiting noted. PHYSICAL EXAMINATION: GENERAL: The patient is alert and oriented x4, morbidly obese, Well developed, well nourished. HEENT: Pupils are round and equally reacting to light. EOMI. does have scleral icterus. No conjunctival pallor. Normocephalic, atraumatic. No pharyngeal erythema. No thyromegaly. CARDIOVASCULAR: S1 and S2 muffled PULMONARY: diminished breath sounds bilaterally with Few scattered rhonchi noted. ABDOMEN: soft. obese. Non-distended, normoactive bowel sounds. No palpable organomegaly. MUSCULOSKELETAL: No joint swelling or deformity. EXTREMITIES: No cyanosis, clubbing, or pedal edema. NEUROLOGICAL: Gross neurological examination did not reveal any focal deficits. SKIN: No rashes. Assessment: Diabetes mellitus type 2, uncontrolled with hyperglycemia Severe abdominal pain with acute on chronic pancreatitis, relapsing Hypertriglyceridemia Dehydration Hyperkalemia Morbid obesity with a BMI of 44.3 Full code Plan: Recommend to continue to hydrate and encourage oral intake. Discussed better diet options and will change diet to low potassium. Potassium found to be 6.4 again and will give IV dextrose and IV insulin along with kayexalate and repeat am labs. Will give a dose of lokelma today. Recommend to continue with low potassium diet as well. Prognosis is guarded. Objective - Vital Signs Vital signs: Vital Signs Temp 99.1 F 02/15/22 08:00 Pulse 60 05/23/21 08:00 Resp 16 05/23/21 08:00 BP 116/73 05/23/21 08:00 Pulse Ox 95 05/23/21 08:00 Intake & Output 05/22/21 05/23/21 05/23/21 18:59 06:59 18:59 Intake Total 1080 1100 Balance 1080 1100 Intake: Intake, IV Titration 900 Amount Sodium Chloride 0.9% 1, 900 000 ml @ 130 mls/hr IV . Q7H42M [facility] Rx#:[id number] Oral 1080 200 Other: Voiding Method Toilet Toilet # Voids 4 1 # Bowel Movements 0 - Labs CBC & Chem 7: 05/22/21 05:22 05/23/21 03:09 Labs: Abnormal Lab Results - Last 24 Hours (Table) 05/22/21 05/22/21 05/22/21 Range/Units 05:22 05:22 11:24 RBC 3.82 L (4.10-5.20) X 10*6/uL Hgb 9.5 L (12.0-15.0) g/dL Hct 32.8 L (37.2-46.3) % MCH 24.9 L (27.0-32.0) pg MCHC 29.0 L (32.0-37.0) g/dL RDW 17.8 H (11.5-14.5) % Plt Count 447 H (140-440) X 10*3/uL MPV 9.2 L (9.5-12.2) fL Sodium 133 L (135-145) mmol/L Potassium 6.4 H* (3.5-5.5) mmol/L Anion Gap 9.80 L (10.00-18.00) mmol/L Est GFR (CKD-EPI)NonAf 59.3 L (60.0-200.0) Glucose 273 H (70-110) mg/dL POC Glucose (mg/dL) 220 H (75-99) mg/dL Total Bilirubin <0.15 L (0.30-1.20) mg/dL AST 49 H (13-35) U/L Total Protein 5.8 L (6.2-8.2) g/dL Albumin 3.5 L (3.8-4.9) g/dL Albumin/Globulin Ratio 1.52 L (1.60-3.17) g/dL Triglycerides 496.00 H (0.00-149.00) mg/dL HDL Cholesterol 23.10 L (40.00-60.00) mg/dL Amylase 22 L (23-121) U/L Lipase 78 H (14-63) U/L 05/22/21 05/22/21 05/22/21 Range/Units 12:03 16:42 20:55 RBC (4.10-5.20) X 10*6/uL Hgb (12.0-15.0) g/dL Hct (37.2-46.3) % MCH (27.0-32.0) pg MCHC (32.0-37.0) g/dL RDW (11.5-14.5) % Plt Count (140-440) X 10*3/uL MPV (9.5-12.2) fL Sodium (135-145) mmol/L Potassium (3.5-5.5) mmol/L Anion Gap (10.00-18.00) mmol/L Est GFR (CKD-EPI)NonAf (60.0-200.0) Glucose (70-110) mg/dL POC Glucose (mg/dL) 261 H 183 H 298 H (75-99) mg/dL Total Bilirubin (0.30-1.20) mg/dL AST (13-35) U/L Total Protein (6.2-8.2) g/dL Albumin (3.8-4.9) g/dL Albumin/Globulin Ratio (1.60-3.17) g/dL Triglycerides (0.00-149.00) mg/dL HDL Cholesterol (40.00-60.00) mg/dL Amylase (23-121) U/L Lipase (14-63) U/L 05/23/21 Range/Units 07:05 RBC (4.10-5.20) X 10*6/uL Hgb (12.0-15.0) g/dL Hct (37.2-46.3) % MCH (27.0-32.0) pg MCHC (32.0-37.0) g/dL RDW (11.5-14.5) % Plt Count (140-440) X 10*3/uL MPV (9.5-12.2) fL Sodium (135-145) mmol/L Potassium (3.5-5.5) mmol/L Anion Gap (10.00-18.00) mmol/L Est GFR (CKD-EPI)NonAf (60.0-200.0) Glucose (70-110) mg/dL POC Glucose (mg/dL) 198 H (75-99) mg/dL Total Bilirubin (0.30-1.20) mg/dL AST (13-35) U/L Total Protein (6.2-8.2) g/dL Albumin (3.8-4.9) g/dL Albumin/Globulin Ratio (1.60-3.17) g/dL Triglycerides (0.00-149.00) mg/dL HDL Cholesterol (40.00-60.00) mg/dL Amylase (23-121) U/L Lipase (14-63) U/L
[2021-05-24 06:35] LABS: African American GFR (CKD) 68 (>60 ml/min/1.73 sqM); Anion Gap 3 mmol/L; Blood Urea Nitrogen 19 mg/dL (7-17); Calcium 9.1 mg/dL (8.4-10.2); Carbon Dioxide 27 mmol/L (22-30); Chloride 105 mmol/L (98-107); Glucose 202 mg/dL (74-99); Non-African American GFR(CKD) 59 (>60 ml/min/1.73 sqM); Potassium 5.6 mmol/L (3.5-5.1); Sodium 135 mmol/L (137-145)
[2021-05-24 06:52] LABS: Glucose,Whole Blood 211 mg/dL (75-99)
[2021-05-24] MEDS: INSULIN ASPART (NovoLOG) 100 UNIT/ML VIAL SQ SCH ×7 (07:30→22:00)
[2021-05-24] MEDS: INSULIN DETEMIR (LEVEMIR) 100 UNIT/ML SYR SQ SCH (07:30)
[2021-05-24] MEDS: PANTOPRAZOLE 40 MG TABLET PO SCH (07:31)
[2021-05-24] MEDS: CLINDAMYCIN 150 MG CAP PO SCH ×2 (07:31→16:36)
[2021-05-24] MEDS: HEPARIN SODIUM,PORCINE/PF 5,000 UNIT/0.5 ML SYRINGE SQ SCH ×2 (09:34→20:20)
[2021-05-24] MEDS: SODIUM POLYSTYRENE SULFONATE 15 GM/60 ML BOTTLE PO SCH (09:34)
[2021-05-24] MEDS: FENOFIBRATE 160 MG TAB PO SCH (09:35)
[2021-05-24] MEDS: metFORMIN 500 MG TAB PO SCH (09:35)
[2021-05-24] MEDS: lisinopriL 20 MG TAB PO SCH (09:35)
[2021-05-24] MEDS ORDERED: SODIUM ZIRCONIUM CYCLOSILICATE 10 GM PACKET PO ONE (11:00)
[2021-05-24 11:32] LABS: Glucose,Whole Blood 299 mg/dL (75-99)
[2021-05-24] MEDS: HYDROmorphone 1 MG/ML 1 ML SYRINGE IVP PRN ×2 (11:58→20:20)
[2021-05-24 16:30] LABS: Glucose,Whole Blood 207 mg/dL (75-99)
[2021-05-24] MEDS: ATORVASTATIN 80 MG TAB PO SCH (20:20)
[2021-05-24 21:19] LABS: Glucose,Whole Blood 200 mg/dL (75-99)
[2021-05-25] MEDS: CLINDAMYCIN 150 MG CAP PO SCH ×2 (00:10→08:55)
--- NOTE | 2021-05-25 00:40 | P.PN ---
Subjective Progress Note Date: 05/24/21 This is a 50 year old female who is a patient of Dr. Cerda who was recently admitted with uncontrolled elevated blood sugars and also significant abdominal pain. Patient is maintained on gentle IV hydration. Encouraged oral intake and increased activity as tolerated. Blood sugars more controlled currently. Potassium found to be above 6 today and will correct and repeat am labs. Patient denies chest pain, shortness of breath, or palpitations. Patient is afebrile. No reports of nausea or vomiting and tolerating diet. 05/23/2021 Patient is seen and evaluated this morning. Patient found to have elevated potassium again of 6.4 after correction and will attempt again. Continue with kayexalate although patient does not tolerate well. Will give a dose of lokelma and repeat am labs. Encouraged increased activity and will change diet to low potassium diet. Patient denies chest pain or shortness of breath. Patient is afebrile. No reported nausea or vomiting noted. 05/24/2021 Patient seen today and potassium continues to be elevated although improving at 5.6 today. Recommend low potassium diet and will give a dose of lokelma and repeat am labs. Patient continues with abdominal pain and requesting IV pain medications. Patient denies chest pain or shortness of breath. Patient is afebrile. No reports of nausea or vomiting and tolerating diet. PHYSICAL EXAMINATION: GENERAL: The patient is alert and oriented x4, morbidly obese, Well developed, well nourished. HEENT: Pupils are round and equally reacting to light. EOMI. does have scleral icterus. No conjunctival pallor. Normocephalic, atraumatic. No pharyngeal erythema. No thyromegaly. CARDIOVASCULAR: S1 and S2 muffled PULMONARY: diminished breath sounds bilaterally with Few scattered rhonchi noted. ABDOMEN: soft. obese. Non-distended, normoactive bowel sounds. No palpable organomegaly. MUSCULOSKELETAL: No joint swelling or deformity. EXTREMITIES: No cyanosis, clubbing, or pedal edema. NEUROLOGICAL: Gross neurological examination did not reveal any focal deficits. SKIN: No rashes. Assessment: Diabetes mellitus type 2, uncontrolled with hyperglycemia Severe abdominal pain with acute on chronic pancreatitis, relapsing Hypertriglyceridemia Dehydration Hyperkalemia Morbid obesity with a BMI of 44.3 Full code Plan: Recommend to continue to encourage oral intake and low potassium. Patient potassium continues to be elevated at 5.6 which is trending down. Will give a dose of kayexalat and lokelma and repeat am labs with possible discharge in 24 hours. Patient encouraged diet control and increased activity as tolerated. Patient continues with abdominal pain and continues on Dilaudid. Discussed pain control and trying to avoid IV pain medications. Dr Cerda follows this patient and will resume care in the morning. Will continue to monitor closely with repeat labs and possible discharge in the am if potassium is improved. Prognosis is guarded. The impression and plan of care has been dictated by Shalini Ramirez, nurse practitioner as directed. MD Karl I have performed a history and examination and MDM of this patient, discussed the same with the dictator, and agree with the dictator's assessment and plan as written ,documented as a scribe. Based on total visit time, I have performed more than 50% of the visit. Any additional findings or plans will be noted. Objective - Vital Signs Vital signs: Vital Signs Temp 98.3 F 05/24/21 07:55 Pulse 66 05/24/21 07:55 Resp 18 05/24/21 07:55 BP 130/74 05/24/21 07:55 Pulse Ox 95 05/24/21 07:55 Intake & Output 05/23/21 05/24/21 05/24/21 18:59 06:59 18:59 Intake Total 900 200 Balance 900 200 Intake: Intake, IV Titration 900 Amount Sodium Chloride 0.9% 1, 900 000 ml @ 130 mls/hr IV . Q7H42M [facility] Rx#:[id number] Oral 200 Other: Voiding Method Toilet # Voids 3 - Labs CBC & Chem 7: 05/22/21 05:22 05/24/21 06:05 Labs: Abnormal Lab Results - Last 24 Hours (Table) 05/23/21 05/23/21 05/23/21 Range/Units 03:09 11:41 16:36 Sodium 134 L (135-145) mmol/L Potassium 6.4 H* (3.5-5.5) mmol/L Carbon Dioxide 19.5 L (20.0-27.5) mmol/L BUN (7-17) mg/dL Creatinine (0.52-1.04) mg/dL Glucose 258 H (70-110) mg/dL POC Glucose (mg/dL) 276 H 203 H (75-99) mg/dL 05/23/21 05/24/21 05/24/21 Range/Units 20:34 06:05 06:51 Sodium 135 L (135-145) mmol/L Potassium 5.6 H (3.5-5.5) mmol/L Carbon Dioxide (20.0-27.5) mmol/L BUN 19 H (7-17) mg/dL Creatinine 1.11 H (0.52-1.04) mg/dL Glucose 202 H (70-110) mg/dL POC Glucose (mg/dL) 280 H 211 H (75-99) mg/dL
[2021-05-25] MEDS: HYDROcodone/APAP 5-325MG 1 EACH TAB PO PRN ×2 (02:11→08:56)
[2021-05-25] MEDS: SODIUM CHLORIDE 0.9% 1,000 ML IV SCH ×2 (04:12→10:35)
[2021-05-25 07:04] LABS: Glucose,Whole Blood 220 mg/dL (75-99)
[2021-05-25 08:40] LABS: African American GFR (CKD) 76 (>60 ml/min/1.73 sqM); Anion Gap 6 mmol/L; Blood Urea Nitrogen 18 mg/dL (7-17); Calcium 8.9 mg/dL (8.4-10.2); Carbon Dioxide 26 mmol/L (22-30); Chloride 104 mmol/L (98-107); Glucose 281 mg/dL (74-99); Non-African American GFR(CKD) 66 (>60 ml/min/1.73 sqM); Potassium 4.9 mmol/L (3.5-5.1); Sodium 136 mmol/L (137-145)
[2021-05-25] MEDS: lisinopriL 20 MG TAB PO SCH (08:55)
[2021-05-25] MEDS: INSULIN DETEMIR (LEVEMIR) 100 UNIT/ML SYR SQ SCH (08:57)
[2021-05-25] MEDS: INSULIN ASPART (NovoLOG) 100 UNIT/ML VIAL SQ SCH ×4 (08:57→11:59)
[2021-05-25] MEDS: SODIUM POLYSTYRENE SULFONATE 15 GM/60 ML BOTTLE PO SCH (08:58)
[2021-05-25] MEDS: HEPARIN SODIUM,PORCINE/PF 5,000 UNIT/0.5 ML SYRINGE SQ SCH (08:58)
[2021-05-25] MEDS: PANTOPRAZOLE 40 MG TABLET PO SCH (09:00)
[2021-05-25] MEDS: FENOFIBRATE 160 MG TAB PO SCH (09:00)
[2021-05-25] MEDS: metFORMIN 500 MG TAB PO SCH (09:01)
[2021-05-25 11:15] LABS: Glucose,Whole Blood 282 mg/dL (75-99)
[2021-05-25 16:02] LABS: Glucose,Whole Blood 200 mg/dL (75-99)
[2021-05-25 16:41] VITALS: BP 133/68; PULSE 72; RESP 17; TEMP 98.7
--- NOTE | 2021-05-27 16:05 | DS ---
DISCHARGE SUMMARY DATE OF DISCHARGE: 05/25/2021 CHIEF COMPLAINT: Abdominal pain, lactic acidosis, hepatitis, hypertriglyceridemia and uncontrolled diabetes. HISTORY OF PRESENT ILLNESS AND PHYSICAL EXAMINATION: Details of this lady's history and physical can be found in the initial workup. LABORATORY STUDIES: While she was in the hospital she had laboratory studies, details of which can be found in the laboratory section of her chart. COURSE IN THE HOSPITAL: After admission she was placed on bedrest and started on intravenous fluids and analgesics. Blood sugars were brought under control. She was improving, eating without any nausea, and her epigastric pain was . Blood sugars were good and it was felt she could go home on May 25. FINAL DIAGNOSES: 1. Uncontrolled diabetes mellitus. 2. Dehydration. 3. Lactic acidosis. 4. Uncontrolled insulin-dependent diabetes mellitus. 5. Hypertriglyceridemia. 6. Chronic relapsing pancreatitis. OPERATIONS: None. CONSULTATIONS: None. She is improved. MMPAULA / GOOD: [id number] /
== END 2021-05-25 16:17 | disposition home or self-care (01) | DRG 637 ==
LOC: EC 12:24 → 1SOBS 15:03 → 6NMEDSUR 19:33 → 4SSUR 05-19 01:46 → OBSVTOIN 05-22 14:38
PROVIDERS: ADMIT Family Medicine; ATTEND Family Medicine
DX: E11.65 Type 2 diabetes mellitus with hyperglycemia (principal); K85.90 Acute pancreatitis without necrosis or infection, unspecified; E87.2 Acidosis; K86.1 Other chronic pancreatitis; Z68.41 Body mass index [BMI] 40.0-44.9, adult; E66.01 Morbid (severe) obesity due to excess calories; E78.1 Pure hyperglyceridemia; E78.5 Hyperlipidemia, unspecified; E86.0 Dehydration; E87.5 Hyperkalemia; I10 Essential (primary) hypertension; J06.9 Acute upper respiratory infection, unspecified; K75.9 Inflammatory liver disease, unspecified; L02.92 Furuncle, unspecified; Z20.822 Contact with and (suspected) exposure to COVID-19; Z79.4 Long term (current) use of insulin; Z87.891 Personal history of nicotine dependence; Z79.899 Other long term (current) drug therapy
CPT/HCPCS: 36415; 71045; 80048; 80053; 80061; 81003; 82150; 83036; 83605; 83690; 83721; 83735; 84478; 85025; 85610; 85730; 87635; 93005; 96361; 96374; 99285

== ENCOUNTER 2021-06-02 08:51 | Emergency (ER) | payer MEDICARE ==
[2021-06-02] MEDS ORDERED: SODIUM CHLORIDE 0.9% 1,000 ML IV ONE (09:46)
[2021-06-02] MEDS ORDERED: ONDANSETRON 4 MG/2 ML VIAL IVP STA (09:46)
[2021-06-02 10:09] LABS: Appearance,Urine Clear (Clear); Bilirubin,Urine Negative (Negative); Blood,Urine Negative (Negative); Color,Urine Light Yellow; Glucose,Urine (UA) 4+ (Negative); Ketones,Urine Negative (Negative); Leukocyte Esterase,Urine Negative (Negative); Nitrite,Urine Negative (Negative); PH, Urine 5.5 (5.0-8.0); Protein,Urine Trace (Negative); Urobilinogen,Urine <2.0 mg/dL (<2.0)
[2021-06-02 10:21] LABS: Anisocytosis Slight; Basophils # (A) 0.1 k/uL (0-0.2); Basophils % (A) 1 %; Eosinophils # (A) 0.3 k/uL (0-0.7); Eosinophils % (A) 2 %; HCT 36.4 % (34.0-46.0); HGB 11.3 gm/dL (11.4-16.0); Hypochromasia Moderate; Lymphocytes # (A) 2.1 k/uL (1.0-4.8); Lymphocytes % (A) 20 %; MCH 26.2 pg (25.0-35.0); MCV 84.7 fL (80.0-100.0); Mean Platelet Volume 7.8; Monocytes # (A) 0.5 k/uL (0-1.0); Monocytes % (A) 5 %; Neutrophils # (A) 7.1 k/uL (1.3-7.7); Neutrophils % (A) 70 %; Platelet Count 608 k/uL (150-450); RDW 17.2 % (11.5-15.5); WBC 10.2 k/uL (3.8-10.6)
[2021-06-02 10:28] LABS: ALT 31 U/L (4-34); AST 43 U/L (14-36); African American GFR (CKD) 67 (>60 ml/min/1.73 sqM); Albumin 3.7 g/dL (3.5-5.0); Alkaline Phosphatase 115 U/L (38-126); Anion Gap 13 mmol/L; Blood Urea Nitrogen 23 mg/dL (7-17); Calcium 9.2 mg/dL (8.4-10.2); Carbon Dioxide 18 mmol/L (22-30); Chloride 100 mmol/L (98-107); Glucose 399 mg/dL (74-99); Lipase 455 U/L (23-300); Non-African American GFR(CKD) 58 (>60 ml/min/1.73 sqM); Potassium 4.9 mmol/L (3.5-5.1); Sodium 131 mmol/L (137-145); Total Bilirubin 0.4 mg/dL (0.2-1.3); Total Protein 6.6 g/dL (6.3-8.2)
[2021-06-02] MEDS ORDERED: ACETAMINOPHEN TAB 500 MG TAB PO STA (10:36)
--- NOTE | 2021-06-02 10:47 | ED ---
Weakness HPI - General Stated complaint: High Blood Sugar Source: patient, EMS Mode of arrival: ambulatory Limitations: no limitations - History of Present Illness Initial comments: 50-year-old female with past medical history of diabetes presents emergency department with generalized fatigue, cough and body aches. That she has had a mild productive cough with clear phlegm production. Admits to myalgias. No recorded fevers. Has had a good appetite. Taking her insulin as directed. Denies any chest pain or shortness of breath. No abdominal pain. No changes in her bowel or bladder habits. No sick contacts or similar symptoms. Reports that she is vaccinated against Covid. EMS was called her house and found that her glucose level was 400. No other alleviating, Perceptin or modifying factors - Related Data Home Medications Medication Instructions Recorded Confirmed Atorvastatin [Lipitor] 80 mg PO HS 06/25/19 06/02/21 lisinopriL 40 mg PO DAILY 09/24/20 06/02/21 metFORMIN HCL [Glucophage] 500 mg PO DAILY 09/24/20 06/02/21 traZODone HCL 50 - 100 mg PO HS PRN 01/11/21 06/02/21 Ergocalciferol (Vitamin D2) 1,250 mcg PO TU 03/03/21 06/02/21 [Drisdol (50,000 Iu)] Esomeprazole Magnesium [NexIUM] 20 mg PO DAILY 03/28/21 06/02/21 INSULIN ASPART (NovoLOG) [NovoLOG 18 unit SQ AC-TID 04/26/21 06/02/21 (formulary)] Insulin Detemir (Levemir) [Levemir] 20 unit SQ DAILY 05/18/21 06/02/21 Previous Rx's Medication Instructions Recorded Fenofibrate [Lofibra] 160 mg PO DAILY #30 tab 03/23/19 Albuterol Inhaler [Ventolin Hfa 2 puff INHALATION RT-QID #8 gm 06/02/21 Inhaler] Azithromycin [Zithromax Z-pack (6 0 mg PO DIRECTED #6 tab 06/02/21 tabs)] hydrOXYzine HCL [Atarax] 25 mg PO TID PRN #15 tab 06/04/21 predniSONE 50 mg PO DAILY #5 tab 06/04/21 Allergies Allergy/AdvReac Type Severity Reaction Status Date / Time levofloxacin [From Levaquin] Allergy Unknown Verified 06/03/21 23:15 Review of Systems ROS Statement: Those systems with pertinent positive or pertinent negative responses have been documented in the HPI. ROS Other: All systems not noted in ROS Statement are negative. Past Medical History Past Medical History: Diabetes Mellitus, GERD/Reflux, Hyperlipidemia, Hypertension, Syncope Additional Past Medical History / Comment(s): Pancreatitis twice, IDDM type II, UTI, chronic low back pain, bulging discs, dental abscesses in past. History of Any Multi-Drug Resistant Organisms: None Reported Past Surgical History: Tubal Ligation Additional Past Surgical History / Comment(s): Age 7 had VSD repair Past Anesthesia/Blood Transfusion Reactions: No Reported Reaction Past Psychological History: No Psychological Hx Reported Smoking Status: Former smoker Past Alcohol Use History: None Reported Past Drug Use History: None Reported - Past Family History Mother Family Medical History: No Reported History Additional Family Medical History / Comment(s): Mother was healthy. She is , pt cannot recall cause of . Father Family Medical History: Pneumonia Additional Family Medical History / Comment(s): Father at the age of 67yrs from pneumonia General Exam Limitations: no limitations General appearance: alert, in no apparent distress Head exam: Present: atraumatic, normocephalic, normal inspection Eye exam: Present: normal appearance, PERRL, EOMI. Absent: scleral icterus, conjunctival injection, periorbital swelling ENT exam: Present: normal exam, mucous membranes moist Neck exam: Present: normal inspection. Absent: tenderness, meningismus, lymphadenopathy Respiratory exam: Present: normal lung sounds bilaterally. Absent: respiratory distress, wheezes, rales, rhonchi, stridor Cardiovascular Exam: Present: regular rate, normal rhythm, normal heart sounds. Absent: systolic murmur, diastolic murmur, rubs, gallop, clicks GI/Abdominal exam: Present: soft, normal bowel sounds. Absent: distended, tenderness, guarding, rebound, rigid Extremities exam: Present: normal inspection, full ROM, normal capillary refill. Absent: tenderness, pedal edema, joint swelling, calf tenderness Back exam: Present: normal inspection Neurological exam: Present: alert, oriented X3, CN II-XII intact Psychiatric exam: Present: normal affect, normal mood Skin exam: Present: warm, dry, intact, normal color. Absent: rash Course Vital Signs 06/02/21 06/02/21 06/02/21 08:53 11:39 12:45 Temperature 98.8 F 98.7 F Pulse Rate 70 62 67 Respiratory 22 18 16 Rate Blood Pressure 144/57 121/59 127/58 O2 Sat by Pulse 98 99 98 Oximetry 06/02/21 13:15 Temperature 98.7 F Pulse Rate 71 Respiratory 18 Rate Blood Pressure 131/58 O2 Sat by Pulse 98 Oximetry Medical Decision Making - Medical Decision Making Upon arrival patient is placed into room 4. Thorough history and physical exam was performed. IV access established laboratory studies were conducted. Patient is given a liter bolus of normal saline. Review the patient's laboratory studies demonstrate a sodium of 131. Likely pseudohyponatremia due to the patient's glucose being 399. Lactic acid is 3.4. Creatinine 1.1 which is the patient's baseline. 4+ glucose in the urine. No ketones. Negative for acetone and Covid. Patient's glucose is 312 after liter bolus. We did give her 20 units of insulin and rechecked demonstrates her glucose is now 276. Chest x- ray is clear of any infiltrate. Vital signs stable. Patient will be discharged home at this time with albuterol inhaler. Hesitant to place the patient on steroids due to her hyperglycemia. Instructed to check her glucose 3 times daily and keep a log. Follow up with her primary care doctor to 4 days. Return for any new or worsening symptoms. Patient is discharged home in stable condition - Lab Data Result diagrams: 06/02/21 09:52 06/02/21 09:52 Lab Results 06/02/21 06/02/21 06/02/21 Range/Units 09:52 09:52 09:52 WBC 10.2 (3.8-10.6) k/uL RBC 4.30 (3.80-5.40) m/uL Hgb 11.3 L (11.4-16.0) gm/dL Hct 36.4 (34.0-46.0) % MCV 84.7 (80.0-100.0) fL MCH 26.2 (25.0-35.0) pg MCHC 31.0 (31.0-37.0) g/dL RDW 17.2 H (11.5-15.5) % Plt Count 608 H (150-450) k/uL MPV 7.8 Neutrophils % 70 % Lymphocytes % 20 % Monocytes % 5 % Eosinophils % 2 % Basophils % 1 % Neutrophils # 7.1 (1.3-7.7) k/uL Lymphocytes # 2.1 (1.0-4.8) k/uL Monocytes # 0.5 (0-1.0) k/uL Eosinophils # 0.3 (0-0.7) k/uL Basophils # 0.1 (0-0.2) k/uL Hypochromasia Moderate Anisocytosis Slight Sodium 131 L (137-145) mmol/L Potassium 4.9 (3.5-5.1) mmol/L Chloride 100 (98-107) mmol/L Carbon Dioxide 18 L (22-30) mmol/L Anion Gap 13 mmol/L BUN 23 H (7-17) mg/dL Creatinine 1.13 H (0.52-1.04) mg/dL Est GFR (CKD-EPI)AfAm 67 (>60 ml/min/1.73 sqM) Est GFR (CKD-EPI)NonAf 58 (>60 ml/min/1.73 sqM) Glucose 399 H (74-99) mg/dL POC Glucose (mg/dL) (75-99) mg/dL POC Glu Check Totaler ID Lactic Ac Sepsis Rflx Plasma Lactic Acid Travon (0.7-2.0) mmol/L Calcium 9.2 (8.4-10.2) mg/dL Total Bilirubin 0.4 (0.2-1.3) mg/dL AST 43 H (14-36) U/L ALT 31 (4-34) U/L Alkaline Phosphatase 115 (38-126) U/L Troponin I (0.000-0.034) ng/mL Total Protein 6.6 (6.3-8.2) g/dL Albumin 3.7 (3.5-5.0) g/dL Lipase 455 H (23-300) U/L Urine Color Light Yellow Urine Appearance Clear (Clear) Urine pH 5.5 (5.0-8.0) Ur Specific [place] 1.020 (1.001-1.035) Urine Protein Trace H (Negative) Urine Glucose (UA) 4+ H (Negative) Urine Ketones Negative (Negative) Urine Blood Negative (Negative) Urine Nitrite Negative (Negative) Urine Bilirubin Negative (Negative) Urine Urobilinogen <2.0 (<2.0) mg/dL Ur Leukocyte Esterase Negative (Negative) Acetone, Qual Negative (Negative) Coronavirus (PCR) (Not Detectd) 06/02/21 06/02/21 06/02/21 Range/Units 09:52 09:52 09:52 WBC (3.8-10.6) k/uL RBC (3.80-5.40) m/uL Hgb (11.4-16.0) gm/dL Hct (34.0-46.0) % MCV (80.0-100.0) fL MCH (25.0-35.0) pg MCHC (31.0-37.0) g/dL RDW (11.5-15.5) % Plt Count (150-450) k/uL MPV Neutrophils % % Lymphocytes % % Monocytes % % Eosinophils % % Basophils % % Neutrophils # (1.3-7.7) k/uL Lymphocytes # (1.0-4.8) k/uL Monocytes # (0-1.0) k/uL Eosinophils # (0-0.7) k/uL Basophils # (0-0.2) k/uL Hypochromasia Anisocytosis Sodium (137-145) mmol/L Potassium (3.5-5.1) mmol/L Chloride (98-107) mmol/L Carbon Dioxide (22-30) mmol/L Anion Gap mmol/L BUN (7-17) mg/dL Creatinine (0.52-1.04) mg/dL Est GFR (CKD-EPI)AfAm (>60 ml/min/1.73 sqM) Est GFR (CKD-EPI)NonAf (>60 ml/min/1.73 sqM) Glucose (74-99) mg/dL POC Glucose (mg/dL) (75-99) mg/dL POC Glu Check Totaler ID Lactic Ac Sepsis Rflx Plasma Lactic Acid Travon 3.4 H* (0.7-2.0) mmol/L Calcium (8.4-10.2) mg/dL Total Bilirubin (0.2-1.3) mg/dL AST (14-36) U/L ALT (4-34) U/L Alkaline Phosphatase (38-126) U/L Troponin I <0.012 (0.000-0.034) ng/mL Total Protein (6.3-8.2) g/dL Albumin (3.5-5.0) g/dL Lipase (23-300) U/L Urine Color Urine Appearance (Clear) Urine pH (5.0-8.0) Ur Specific [place] (1.001-1.035) Urine Protein (Negative) Urine Glucose (UA) (Negative) Urine Ketones (Negative) Urine Blood (Negative) Urine Nitrite (Negative) Urine Bilirubin (Negative) Urine Urobilinogen (<2.0) mg/dL Ur Leukocyte Esterase (Negative) Acetone, Qual (Negative) Coronavirus (PCR) Not Detected (Not Detectd) 06/02/21 06/02/21 06/02/21 Range/Units 10:29 12:20 13:05 WBC (3.8-10.6) k/uL RBC (3.80-5.40) m/uL Hgb (11.4-16.0) gm/dL Hct (34.0-46.0) % MCV (80.0-100.0) fL MCH (25.0-35.0) pg MCHC (31.0-37.0) g/dL RDW (11.5-15.5) % Plt Count (150-450) k/uL MPV Neutrophils % % Lymphocytes % % Monocytes % % Eosinophils % % Basophils % % Neutrophils # (1.3-7.7) k/uL Lymphocytes # (1.0-4.8) k/uL Monocytes # (0-1.0) k/uL Eosinophils # (0-0.7) k/uL Basophils # (0-0.2) k/uL Hypochromasia Anisocytosis Sodium (137-145) mmol/L Potassium (3.5-5.1) mmol/L Chloride (98-107) mmol/L Carbon Dioxide (22-30) mmol/L Anion Gap mmol/L BUN (7-17) mg/dL Creatinine (0.52-1.04) mg/dL Est GFR (CKD-EPI)AfAm (>60 ml/min/1.73 sqM) Est GFR (CKD-EPI)NonAf (>60 ml/min/1.73 sqM) Glucose (74-99) mg/dL POC Glucose (mg/dL) 312 H 276 H (75-99) mg/dL POC Glu Check Totaler ID Mal Bennett Pauline Lactic Ac Sepsis Rflx Y Plasma Lactic Acid Travon (0.7-2.0) mmol/L Calcium (8.4-10.2) mg/dL Total Bilirubin (0.2-1.3) mg/dL AST (14-36) U/L ALT (4-34) U/L Alkaline Phosphatase (38-126) U/L Troponin I (0.000-0.034) ng/mL Total Protein (6.3-8.2) g/dL Albumin (3.5-5.0) g/dL Lipase (23-300) U/L Urine Color Urine Appearance (Clear) Urine pH (5.0-8.0) Ur Specific [place] (1.001-1.035) Urine Protein (Negative) Urine Glucose (UA) (Negative) Urine Ketones (Negative) Urine Blood (Negative) Urine Nitrite (Negative) Urine Bilirubin (Negative) Urine Urobilinogen (<2.0) mg/dL Ur Leukocyte Esterase (Negative) Acetone, Qual (Negative) Coronavirus (PCR) (Not Detectd) - EKG Data EKG Comments: EKG demonstrates sinus rhythm with a rate of 67. GA interval 139. Dressing 85. QTC of 405. There is inverted T-wave [address] No acute ST segment hu vations. Q wave in lead 3 Disposition Clinical Impression: High blood sugar, Myalgia, Cough Disposition: HOME SELF-CARE Condition: Stable Instructions (If sedation given, give patient instructions): Upper Respiratory Infection (ED) Additional Instructions: Please follow up with your primary care doctor within 2-4 days. Please check your glucose 3 times daily for the next several days. Keep a log. Take your insulin as directed and return for any new or worsening symptoms Prescriptions: Albuterol Inhaler [Ventolin Hfa Inhaler] 2 puff INHALATION RT-QID #8 gm Azithromycin [Zithromax Z-pack (6 tabs)] 0 mg PO DIRECTED #6 tab Is patient prescribed a controlled substance at d/c from ED?: No Referrals: Guillermo Cerda MD [Primary Care Provider] - 1-2 days Time of Disposition: 13:00
[2021-06-02 11:42] VITALS: TEMP 98.7
--- NOTE | 2021-06-02 11:45 | XR ---
EXAMINATION TYPE: XR chest 2V DATE OF EXAM: 06/02/2021 COMPARISON: 05/18/2021 HISTORY: Chest pain TECHNIQUE: Frontal and lateral views of the chest are obtained. FINDINGS: There is no focal air space opacity. No evidence for pneumothorax. No pleural effusion. The cardiac silhouette size is within normal limits. The osseous structures are grossly intact. IMPRESSION: 1. No acute cardiopulmonary process.
[2021-06-02] MEDS ORDERED: INSULIN ASPART (NovoLOG) 100 UNIT/ML VIAL SQ ONE (12:21)
[2021-06-02 12:22] LABS: Glucose,Whole Blood 312 mg/dL (75-99)
[2021-06-02] MEDS ORDERED: MORPHINE SULFATE 4 MG/ML SYRINGE IVP STA (12:55)
[2021-06-02 13:07] LABS: Glucose,Whole Blood 276 mg/dL (75-99)
[2021-06-02 13:26] VITALS: BP 131/58; PULSE 71; RESP 18
== END 2021-06-02 13:15 | disposition home or self-care (01) ==
LOC: EC 08:51
DX: R73.9 Hyperglycemia, unspecified (principal); M79.10 Myalgia, unspecified site; R05.9 Cough, unspecified; I10 Essential (primary) hypertension; Z20.822 Contact with and (suspected) exposure to COVID-19; Z87.891 Personal history of nicotine dependence; Z88.1 Allergy status to other antibiotic agents
CPT/HCPCS: 36415; 93005; 80053; 82009; 83605; 83690; 84484; 85025; 81003; 87635; 71046; 99285; 96374; 96375; 96372; 96361; J2270; J2405

== ENCOUNTER 2021-06-03 22:16 | Emergency (ER) | payer MEDICARE ==
[2021-06-03 23:15] VITALS: TEMP 99.6
[2021-06-04 03:31] VITALS: BP 130/81; PULSE 79; RESP 14
[2021-06-04] MEDS ORDERED: predniSONE 20 MG TAB PO STA (04:17)
[2021-06-04] MEDS ORDERED: hydrOXYzine HCL 25 MG TAB PO STA (04:17)
[2021-06-04] MEDS ORDERED: FAMOTIDINE 20 MG TAB PO STA (04:17)
[2021-06-04] MEDS ORDERED: IBUPROFEN 800 MG TAB PO STA (04:17)
[2021-06-04] MEDS ORDERED: ONDANSETRON ODT 4 MG TAB PO STA (04:17)
[2021-06-04] MEDS ORDERED: ACETAMINOPHEN TAB 500 MG TAB PO STA (04:17)
[2021-06-04] MEDS ORDERED: HYDROCORTISONE 1% CREAM 30 GM TUBE TOPICAL STA (04:20)
--- NOTE | 2021-06-04 04:20 | ED ---
Weakness HPI - General Chief complaint: Nausea/Vomiting/Diarrhea Stated complaint: Nausea, Vomiting Time Seen by Provider: 06/04/21 03:20 Source: patient, RN notes reviewed, old records reviewed Mode of arrival: ambulatory Limitations: no limitations - History of Present Illness Initial comments: This is a 42 female to the emergency department today. Patient states today for evaluation of multiple complaints and episode of vomiting nausea body aches pains cough or congestion. Patient is concerned that she may have coronavirus and patient is also concerned that she has this rash on her chest and is severely itching she can't stop herself from itching due to itchy she feels. Unknown ALLERGIC reaction or contact never had similar rash patient is similar to our facility for evaluation of similar complaints MD Complaint: generalized weakness (Cough congestion) -: days(s) Location: generalized Severity: moderate Severity scale (1-10): 4 Quality: aching Consistency: constant Improves with: none Worsens with: none Context: recent illness, history of similar Associated Symptoms: chest pain, nausea/vomiting, rash - Related Data Home Medications Medication Instructions Recorded Confirmed Atorvastatin [Lipitor] 80 mg PO HS 06/25/19 06/02/21 lisinopriL 40 mg PO DAILY 09/24/20 06/02/21 metFORMIN HCL [Glucophage] 500 mg PO DAILY 09/24/20 06/02/21 traZODone HCL 50 - 100 mg PO HS PRN 01/11/21 06/02/21 Ergocalciferol (Vitamin D2) 1,250 mcg PO TU 03/03/21 06/02/21 [Drisdol (50,000 Iu)] Esomeprazole Magnesium [NexIUM] 20 mg PO DAILY 03/28/21 06/02/21 INSULIN ASPART (NovoLOG) [NovoLOG 18 unit SQ AC-TID 04/26/21 06/02/21 (formulary)] Insulin Detemir (Levemir) [Levemir] 20 unit SQ DAILY 05/18/21 06/02/21 Previous Rx's Medication Instructions Recorded Fenofibrate [Lofibra] 160 mg PO DAILY #30 tab 03/23/19 Albuterol Inhaler [Ventolin Hfa 2 puff INHALATION RT-QID #8 gm 06/02/21 Inhaler] Azithromycin [Zithromax Z-pack (6 0 mg PO DIRECTED #6 tab 06/02/21 tabs)] hydrOXYzine HCL [Atarax] 25 mg PO TID PRN #15 tab 06/04/21 predniSONE 50 mg PO DAILY #5 tab 06/04/21 Allergies Allergy/AdvReac Type Severity Reaction Status Date / Time levofloxacin [From Levaquin] Allergy Unknown Verified 06/03/21 23:15 Review of Systems ROS Statement: Those systems with pertinent positive or pertinent negative responses have been documented in the HPI. ROS Other: All systems not noted in ROS Statement are negative. Past Medical History Past Medical History: Diabetes Mellitus, GERD/Reflux, Hyperlipidemia, Hypertension, Syncope Additional Past Medical History / Comment(s): Pancreatitis twice, IDDM type II, UTI, chronic low back pain, bulging discs, dental abscesses in past. History of Any Multi-Drug Resistant Organisms: None Reported Past Surgical History: Tubal Ligation Additional Past Surgical History / Comment(s): Age 7 had VSD repair Past Anesthesia/Blood Transfusion Reactions: No Reported Reaction Past Psychological History: No Psychological Hx Reported Smoking Status: Former smoker Past Alcohol Use History: None Reported Past Drug Use History: None Reported - Past Family History Mother Family Medical History: No Reported History Additional Family Medical History / Comment(s): Mother was healthy. She is , pt cannot recall cause of . Father Family Medical History: Pneumonia Additional Family Medical History / Comment(s): Father at the age of 67yrs from pneumonia General Exam Limitations: no limitations General appearance: alert, in no apparent distress Head exam: Present: atraumatic, normocephalic, normal inspection Eye exam: Present: normal appearance, PERRL, EOMI. Absent: scleral icterus, conjunctival injection, periorbital swelling ENT exam: Present: normal exam, mucous membranes moist Neck exam: Present: normal inspection. Absent: tenderness, meningismus, lymphadenopathy Respiratory exam: Present: normal lung sounds bilaterally. Absent: respiratory distress, wheezes, rales, rhonchi, stridor Cardiovascular Exam: Present: regular rate, normal rhythm, normal heart sounds. Absent: systolic murmur, diastolic murmur, rubs, gallop, clicks GI/Abdominal exam: Present: soft, normal bowel sounds. Absent: distended, tenderness, guarding, rebound, rigid Extremities exam: Present: normal inspection, full ROM, normal capillary refill. Absent: tenderness, pedal edema, joint swelling, calf tenderness Back exam: Present: normal inspection Neurological exam: Present: alert, oriented X3, CN II-XII intact Psychiatric exam: Present: normal affect, normal mood Skin exam: Present: warm, dry, intact, normal color, urticaria (Urticarial rash on chest and arms). Absent: rash Course Vital Signs 06/03/21 06/04/21 23:13 03:27 Temperature 99.6 F Pulse Rate 78 79 Respiratory 18 14 Rate Blood Pressure 137/76 130/81 O2 Sat by Pulse 96 97 Oximetry - Reevaluation(s) Reevaluation #1: 06/04/21 04:53 Medical record is reviewed Reevaluation #2: 06/04/21 04:53 patient symptoms are improved Reevaluation #3: 06/04/21 04:53 Patient informed of results and plan questions are answered Medical Decision Making - Medical Decision Making 42 female who is well-known to this emergency department. Patient Dese for evaluation of rash rash on chest and arms itchy rash urticaria, patient also has body aches pains cough and congestion. She had one episode of vomiting with some epigastric abdominal pain as well. Symptoms are all resolved here in the ER she feels improved and can be discharged home - Lab Data Lab Results 06/03/21 Range/Units 23:18 Coronavirus (PCR) Not Detected (Not Detectd) - Radiology Data Radiology results: report reviewed (X-ray KUB is negative for acute disease), image reviewed Disposition Clinical Impression: Myalgia, Viral syndrome, Nausea & vomiting, Urticaria, Dermatitis Disposition: HOME SELF-CARE Condition: Good Instructions (If sedation given, give patient instructions): Acute Nausea and Vomiting (ED), Contact Dermatitis (ED), Urticaria (ED), Viral Syndrome (ED) Prescriptions: hydrOXYzine HCL [Atarax] 25 mg PO TID PRN #15 tab PRN Reason: Itching predniSONE 50 mg PO DAILY #5 tab Is patient prescribed a controlled substance at d/c from ED?: No Referrals: Guillermo Cerda MD [Primary Care Provider] - 1-2 days
--- NOTE | 2021-06-04 04:34 | XR ---
EXAMINATION TYPE: XR KUB DATE OF EXAM: 06/04/2021 COMPARISON: 03/28/2021 HISTORY: Pain TECHNIQUE: Upright exam FINDINGS: 3 views upright were obtained that show no sign of intestinal obstruction or pneumoperitone um. Fecal pattern is normal. There is no evidence of a mass. There are clips from tubal ligation. The re are no pathologic calcifications over the kidneys. Lung bases are clear. IMPRESSION: Nonacute abdomen. No change.
[2021-06-04] MEDS ORDERED: IBUPROFEN 600 MG STARTER PACK 4 TAB BTL PO STA (04:50)
[2021-06-04] MEDS ORDERED: ONDANSETRON 4 MG ODT STARTER PACK 2 TAB BTL PO STA (04:50)
== END 2021-06-04 05:21 | disposition home or self-care (01) ==
LOC: EC 22:16
DX: L50.9 Urticaria, unspecified (principal); L30.9 Dermatitis, unspecified; B34.9 Viral infection, unspecified; E11.9 Type 2 diabetes mellitus without complications; I10 Essential (primary) hypertension; Z87.891 Personal history of nicotine dependence; K21.9 Gastro-esophageal reflux disease without esophagitis; Z79.83 Long term (current) use of bisphosphonates; Z88.1 Allergy status to other antibiotic agents; Z20.822 Contact with and (suspected) exposure to COVID-19
CPT/HCPCS: 87635; 74018; 99284; S0119; J7512

== ENCOUNTER 2021-06-09 11:33 | Emergency (ER) | payer MEDICARE ==
[2021-06-09 11:44] VITALS: RESP 16; TEMP 99
[2021-06-09] MEDS ORDERED: SODIUM CHLORIDE 0.9% 1,000 ML IV STA (12:20)
--- NOTE | 2021-06-09 12:26 | ED ---
General Adult HPI - General Source: patient, EMS, RN notes reviewed, old records reviewed Mode of arrival: EMS Limitations: no limitations - History of Present Illness -: week(s) (2) Severity scale (1-10): 9 Quality: aching Consistency: constant Improves with: none Worsens with: none Associated Symptoms: cough, fever/chills, malaise, nausea/vomiting <Kenneth Marie - Last Filed: 06/09/21 19:17> <Eva Mcgowan - Last Filed: 06/11/21 16:08> - General Chief complaint: Weakness Stated complaint: weakness Time Seen by Provider: 06/09/21 12:15 - History of Present Illness Initial comments: 50-year-old female, alert and oriented 4, presents to the emergency room with complaints of nausea vomiting, body aches and chills for over 2 weeks. Patient states that she was diagnosed here with influenza on June 03. She continues to feel weak and unwell. She states her blood glucose level by EMS was over 300 today. She states she did have an appointment for follow-up with the primary care doctor but didn't feel well enough to go so she called the ambulance contact to the emergency room. She does have history of diabetes, hypertension and pancreatitis. (Kenneth Marie) - Related Data Home Medications Medication Instructions Recorded Confirmed Atorvastatin [Lipitor] 80 mg PO HS 06/25/19 06/09/21 lisinopriL 40 mg PO DAILY 09/24/20 06/09/21 metFORMIN HCL [Glucophage] 500 mg PO DAILY 09/24/20 06/09/21 traZODone HCL 50 - 100 mg PO HS PRN 01/11/21 06/09/21 Ergocalciferol (Vitamin D2) 1,250 mcg PO TU 03/03/21 06/09/21 [Drisdol (50,000 Iu)] Esomeprazole Magnesium [NexIUM] 20 mg PO DAILY 03/28/21 06/09/21 INSULIN ASPART (NovoLOG) [NovoLOG 18 unit SQ AC-TID 04/26/21 06/09/21 (formulary)] Insulin Detemir (Levemir) [Levemir] 20 unit SQ DAILY 05/18/21 06/09/21 Previous Rx's Medication Instructions Recorded Fenofibrate [Lofibra] 160 mg PO DAILY #30 tab 03/23/19 Albuterol Inhaler [Ventolin Hfa 2 puff INHALATION RT-QID #8 gm 06/02/21 Inhaler] hydrOXYzine HCL [Atarax] 25 mg PO TID PRN #15 tab 06/04/21 predniSONE 50 mg PO DAILY #5 tab 06/04/21 Allergies Allergy/AdvReac Type Severity Reaction Status Date / Time levofloxacin [From Levaquin] Allergy Unknown Verified 06/11/21 03:14 Review of Systems ROS Other: All systems not noted in ROS Statement are negative. <Kenneth Marie - Last Filed: 06/09/21 19:17> ROS Other: All systems not noted in ROS Statement are negative. <Eva Mcgowan - Last Filed: 06/11/21 16:08> ROS Statement: Those systems with pertinent positive or pertinent negative responses have been documented in the HPI. Past Medical History Past Medical History: Diabetes Mellitus, GERD/Reflux, Hyperlipidemia, Hypertension, Syncope Additional Past Medical History / Comment(s): Pancreatitis twice, IDDM type II, UTI, chronic low back pain, bulging discs, dental abscesses in past. History of Any Multi-Drug Resistant Organisms: None Reported Past Surgical History: Tubal Ligation Additional Past Surgical History / Comment(s): Age 7 had VSD repair Past Anesthesia/Blood Transfusion Reactions: No Reported Reaction Past Psychological History: No Psychological Hx Reported Smoking Status: Former smoker Past Alcohol Use History: None Reported Past Drug Use History: None Reported - Past Family History Mother Family Medical History: No Reported History Additional Family Medical History / Comment(s): Mother was healthy. She is , pt cannot recall cause of . Father Family Medical History: Pneumonia Additional Family Medical History / Comment(s): Father at the age of 67yrs from pneumonia <Kenneth Marie - Last Filed: 06/09/21 19:17> General Exam Limitations: no limitations General appearance: alert, in no apparent distress Head exam: Present: atraumatic Eye exam: Absent: scleral icterus, conjunctival injection, periorbital swelling ENT exam: Present: mucous membranes moist Neck exam: Present: full ROM. Absent: tenderness, meningismus Respiratory exam: Present: rales (Right base). Absent: respiratory distress, chest wall tenderness, accessory muscle use, decreased breath sounds Cardiovascular Exam: Present: regular rate, normal heart sounds GI/Abdominal exam: Present: soft. Absent: distended, tenderness Extremities exam: Present: normal capillary refill. Absent: pedal edema Back exam: Present: normal inspection, full ROM. Absent: tenderness, CVA tenderness (R), CVA tenderness (L), rash noted Neurological exam: Present: alert, oriented X3 Psychiatric exam: Present: normal affect, normal mood Skin exam: Present: warm, dry, normal color. Absent: cyanosis, diaphoretic, petechiae, pallor <Kenneth Marie - Last Filed: 06/09/21 19:17> Course Vital Signs 06/09/21 06/09/21 11:36 15:00 Temperature 99 F Pulse Rate 72 67 Respiratory 16 16 Rate Blood Pressure 128/63 107/47 O2 Sat by Pulse 99 96 Oximetry Medical Decision Making - Lab Data Result diagrams: 06/09/21 12:30 06/09/21 12:30 <Kenneth Marie - Last Filed: 06/09/21 19:17> - Lab Data Result diagrams: 06/09/21 12:30 06/09/21 12:30 <Eva Mcgowan - Last Filed: 06/11/21 16:08> - Medical Decision Making Patient presents with complaints of ongoing nausea vomiting body aches and chills for the past 2 weeks. Patient was prescribed a Zithromax on June 02 and prednisone for febrile illness on June 04. Extremities do not see any evidence of infection and needs to be treated. Her labs are consistent with previous levels. Patient does have evidence of leukocytosis with a white blood cell count 13.8. In the past she has run high likely related to her vomiting. Lactic acid is 3.3, sodium of 130. Urinalysis is negative for infection. Chest x-ray shows a questionable mild pulmonary vascular congestion. No evidence of effusion. Patient was given 2 L of normal saline for elevated lactic acid and hyperglycemia. Vital signs are stable and there is been no vomiting in the emergency room. Her abdomen is soft and nontender. She denies any hematochezia or hematemesis. Case discussed with Dr. Mcgowan. She'll be discharged home and directed to follow up with her primary care doctor. I did explain to the patient the importance of following up with her primary care doctor is he is much more knowledgeable regarding her history. She was encouraged to discuss with him her lab results and directed to return to the emergency room with any new or concerning symptoms. Patient is agreeable to this plan of care. No signs are stable at [facility]. (Kenneth Marie) I was available for consultation in the emergency department. The history and physical exam were done by the midlevel provider. I was consulted for this patients care. I reviewed the case with the midlevel provider and based on their presentation of the patient, I agree with the assessment, medical decision making and plan of care as documented. Chart was dictated using [employer] dictation software. Attempts were made to correct any dictation errors however some typographical errors may persist. (Eva Mcgowan) - Lab Data Lab Results 06/09/21 06/09/21 06/09/21 Range/Units 12:30 12:30 12:30 WBC 13.8 H (3.8-10.6) k/uL RBC 4.31 (3.80-5.40) m/uL Hgb 11.3 L (11.4-16.0) gm/dL Hct 36.2 (34.0-46.0) % MCV 83.8 (80.0-100.0) fL MCH 26.2 (25.0-35.0) pg MCHC 31.3 (31.0-37.0) g/dL RDW 17.0 H (11.5-15.5) % Plt Count 728 H (150-450) k/uL MPV 7.9 Neutrophils % 68 % Lymphocytes % 23 % Monocytes % 6 % Eosinophils % 1 % Basophils % 0 % Neutrophils # 9.4 H (1.3-7.7) k/uL Lymphocytes # 3.2 (1.0-4.8) k/uL Monocytes # 0.8 (0-1.0) k/uL Eosinophils # 0.2 (0-0.7) k/uL Basophils # 0.1 (0-0.2) k/uL Hypochromasia Moderate Anisocytosis Slight PT (9.0-12.0) sec INR (<1.2) APTT (22.0-30.0) sec Sodium 130 L (137-145) mmol/L Potassium 4.9 (3.5-5.1) mmol/L Chloride 97 L (98-107) mmol/L Carbon Dioxide 20 L (22-30) mmol/L Anion Gap 13 mmol/L BUN 37 H (7-17) mg/dL Creatinine 1.05 H (0.52-1.04) mg/dL Est GFR (CKD-EPI)AfAm 73 (>60 ml/min/1.73 sqM) Est GFR (CKD-EPI)NonAf 63 (>60 ml/min/1.73 sqM) Glucose 324 H (74-99) mg/dL Lactic Ac Sepsis Rflx Plasma Lactic Acid Travon (0.7-2.0) mmol/L Calcium 8.6 (8.4-10.2) mg/dL Magnesium 2.0 (1.6-2.3) mg/dL Total Bilirubin 0.7 (0.2-1.3) mg/dL AST 42 H (14-36) U/L ALT 29 (4-34) U/L Alkaline Phosphatase 105 (38-126) U/L Troponin I (0.000-0.034) ng/mL Total Protein 6.6 (6.3-8.2) g/dL Albumin 3.7 (3.5-5.0) g/dL Amylase (30-110) U/L Lipase (23-300) U/L Urine Color Yellow Urine Appearance Clear (Clear) Urine pH 5.5 (5.0-8.0) Ur Specific [place] 1.020 (1.001-1.035) Urine Protein Trace (Negative) Urine Glucose (UA) 1+ (Negative) Urine Ketones Negative (Negative) Urine Blood Negative (Negative) Urine Nitrite Negative (Negative) Urine Bilirubin Negative (Negative) Urine Urobilinogen <2.0 (<2.0) mg/dL Ur Leukocyte Esterase Negative (Negative) 06/09/21 06/09/21 06/09/21 Range/Units 12:30 12:30 12:30 WBC (3.8-10.6) k/uL RBC (3.80-5.40) m/uL Hgb (11.4-16.0) gm/dL Hct (34.0-46.0) % MCV (80.0-100.0) fL MCH (25.0-35.0) pg MCHC (31.0-37.0) g/dL RDW (11.5-15.5) % Plt Count (150-450) k/uL MPV Neutrophils % % Lymphocytes % % Monocytes % % Eosinophils % % Basophils % % Neutrophils # (1.3-7.7) k/uL Lymphocytes # (1.0-4.8) k/uL Monocytes # (0-1.0) k/uL Eosinophils # (0-0.7) k/uL Basophils # (0-0.2) k/uL Hypochromasia Anisocytosis PT (9.0-12.0) sec INR (<1.2) APTT (22.0-30.0) sec Sodium (137-145) mmol/L Potassium (3.5-5.1) mmol/L Chloride (98-107) mmol/L Carbon Dioxide (22-30) mmol/L Anion Gap mmol/L BUN (7-17) mg/dL Creatinine (0.52-1.04) mg/dL Est GFR (CKD-EPI)AfAm (>60 ml/min/1.73 sqM) Est GFR (CKD-EPI)NonAf (>60 ml/min/1.73 sqM) Glucose (74-99) mg/dL Lactic Ac Sepsis Rflx Plasma Lactic Acid [place]on 3.3 H* (0.7-2.0) mmol/L Calcium (8.4-10.2) mg/dL Magnesium (1.6-2.3) mg/dL Total Bilirubin (0.2-1.3) mg/dL AST (14-36) U/L ALT (4-34) U/L Alkaline Phosphatase (38-126) U/L Troponin I <0.012 (0.000-0.034) ng/mL Total Protein (6.3-8.2) g/dL Albumin (3.5-5.0) g/dL Amylase 44 (30-110) U/L Lipase 352 H (23-300) U/L Urine Color Urine Appearance (Clear) Urine pH (5.0-8.0) Ur Specific [place] (1.001-1.035) Urine Protein (Negative) Urine Glucose (UA) (Negative) Urine Ketones (Negative) Urine Blood (Negative) Urine Nitrite (Negative) Urine Bilirubin (Negative) Urine Urobilinogen (<2.0) mg/dL Ur Leukocyte Esterase (Negative) 06/09/21 06/09/21 Range/Units 13:45 13:50 WBC (3.8-10.6) k/uL RBC (3.80-5.40) m/uL Hgb (11.4-16.0) gm/dL Hct (34.0-46.0) % MCV (80.0-100.0) fL MCH (25.0-35.0) pg MCHC (31.0-37.0) g/dL RDW (11.5-15.5) % Plt Count (150-450) k/uL MPV Neutrophils % % Lymphocytes % % Monocytes % % Eosinophils % % Basophils % % Neutrophils # (1.3-7.7) k/uL Lymphocytes # (1.0-4.8) k/uL Monocytes # (0-1.0) k/uL Eosinophils # (0-0.7) k/uL Basophils # (0-0.2) k/uL Hypochromasia Anisocytosis PT 10.5 (9.0-12.0) sec INR 1.0 (<1.2) APTT 19.2 L (22.0-30.0) sec Sodium (137-145) mmol/L Potassium (3.5-5.1) mmol/L Chloride (98-107) mmol/L Carbon Dioxide (22-30) mmol/L Anion Gap mmol/L BUN (7-17) mg/dL Creatinine (0.52-1.04) mg/dL Est GFR (CKD-EPI)AfAm (>60 ml/min/1.73 sqM) Est GFR (CKD-EPI)NonAf (>60 ml/min/1.73 sqM) Glucose (74-99) mg/dL Lactic Ac Sepsis Rflx Y Plasma Lactic Acid Travon (0.7-2.0) mmol/L Calcium (8.4-10.2) mg/dL Magnesium (1.6-2.3) mg/dL Total Bilirubin (0.2-1.3) mg/dL AST (14-36) U/L ALT (4-34) U/L Alkaline Phosphatase (38-126) U/L Troponin I (0.000-0.034) ng/mL Total Protein (6.3-8.2) g/dL Albumin (3.5-5.0) g/dL Amylase (30-110) U/L Lipase (23-300) U/L Urine Color Urine Appearance (Clear) Urine pH (5.0-8.0) Ur Specific [place] (1.001-1.035) Urine Protein (Negative) Urine Glucose (UA) (Negative) Urine Ketones (Negative) Urine Blood (Negative) Urine Nitrite (Negative) Urine Bilirubin (Negative) Urine Urobilinogen (<2.0) mg/dL Ur Leukocyte Esterase (Negative) Disposition Is patient prescribed a controlled substance at d/c from ED?: No Time of Disposition: 14:48 <Kenneth Marie - Last Filed: 06/09/21 19:17> <Eva Mcgowan - Last Filed: 06/11/21 16:08> Clinical Impression: Nausea & vomiting, Lactic acidosis Disposition: HOME SELF-CARE Condition: Fair Instructions (If sedation given, give patient instructions): Acute Nausea and Vomiting (ED) Additional Instructions: Please follow-up with your primary care doctor as he knows more about your health issues and can adjust the plan of care. The cause for your symptoms can not always be determined with an ER visit. The findings on your exam today and your blood work and imaging do not show any significant changes. At this time it is not 100% certain what is causing your symptoms but we feel you can be discharged from the emergency department. It is possible that the symptoms may worsen or may get better. It is important to follow-up with your primary care doctor on Saturday for continuation of care. Referrals: Guillermo Cerda MD [Primary Care Provider] - 1-2 days
[2021-06-09 13:11] LABS: Anisocytosis Slight; Basophils # (A) 0.1 k/uL (0-0.2); Basophils % (A) 0 %; Eosinophils # (A) 0.2 k/uL (0-0.7); Eosinophils % (A) 1 %; HCT 36.2 % (34.0-46.0); HGB 11.3 gm/dL (11.4-16.0); Hypochromasia Moderate; Lymphocytes # (A) 3.2 k/uL (1.0-4.8); Lymphocytes % (A) 23 %; MCH 26.2 pg (25.0-35.0); MCHC 31.3 g/dL (31.0-37.0); MCV 83.8 fL (80.0-100.0); Mean Platelet Volume 7.9; Monocytes # (A) 0.8 k/uL (0-1.0); Monocytes % (A) 6 %; Neutrophils # (A) 9.4 k/uL (1.3-7.7); Neutrophils % (A) 68 %; Platelet Count 728 k/uL (150-450); RBC 4.31 m/uL (3.80-5.40); WBC 13.8 k/uL (3.8-10.6)
--- NOTE | 2021-06-09 13:18 | XR ---
EXAMINATION TYPE: XR chest 2V DATE OF EXAM: 06/09/2021 COMPARISON: X-ray dated 06/02/2021 HISTORY: Weakness and body aches TECHNIQUE: Frontal and lateral views of the chest are obtained. FINDINGS: Slightly congested pulmonary vasculature. Grossly unremarkable lungs otherwise. No sizable pleural ef fusion or definite pneumothorax. Slightly increased cardiac transverse diameter. No gross aggressive bone lesion. IMPRESSION: Questionable mild pulmonary vascular congestion.
[2021-06-09 13:27] LABS: Albumin 3.7 g/dL (3.5-5.0); Calcium 8.6 mg/dL (8.4-10.2); Potassium 4.9 mmol/L (3.5-5.1); Total Bilirubin 0.7 mg/dL (0.2-1.3); Total Protein 6.6 g/dL (6.3-8.2)
[2021-06-09 13:34] LABS: Appearance,Urine Clear (Clear); Bilirubin,Urine Negative (Negative); Color,Urine Yellow; Glucose,Urine (UA) 1+ (Negative); Ketones,Urine Negative (Negative); PH, Urine 5.5 (5.0-8.0); Protein,Urine Trace (Negative)
[2021-06-09 13:35] LABS: Blood,Urine Negative (Negative); Leukocyte Esterase,Urine Negative (Negative); Nitrite,Urine Negative (Negative); Urobilinogen,Urine <2.0 mg/dL (<2.0)
[2021-06-09] MEDS ORDERED: SODIUM CHLORIDE 0.9% 1,000 ML IV ONE (13:45)
[2021-06-09 14:31] LABS: Amylase 44 U/L (30-110); Lipase 352 U/L (23-300)
[2021-06-09 14:33] LABS: Prothrombin Time 10.5 sec (9.0-12.0)
[2021-06-09 14:35] LABS: Partial Thromboplastin Time 19.2 sec (22.0-30.0)
[2021-06-09] MEDS ORDERED: ACETAMINOPHEN TAB 500 MG TAB PO STA (14:39)
[2021-06-09 15:01] VITALS: BP 107/47; PULSE 67
== END 2021-06-09 15:10 | disposition home or self-care (01) ==
LOC: EC 11:33
DX: R11.2 Nausea with vomiting, unspecified (principal); E87.2 Acidosis; K21.9 Gastro-esophageal reflux disease without esophagitis; I10 Essential (primary) hypertension; Z88.1 Allergy status to other antibiotic agents; Z87.891 Personal history of nicotine dependence
CPT/HCPCS: 36415; 71046; 80053; 81003; 82150; 83605; 83690; 83735; 84484; 85025; 85610; 85730; 93005

== ENCOUNTER 2021-06-11 03:10 | Emergency (ER) | payer MEDICARE, OTHER ==
[2021-06-11 03:14] VITALS: BP 176/79; PULSE 80; RESP 18; TEMP 98.7
[2021-06-11] MEDS ORDERED: IBUPROFEN 800 MG TAB PO STA (04:04)
[2021-06-11] MEDS ORDERED: PROCHLORPERAZINE 5 MG TAB PO STA (04:04)
[2021-06-11] MEDS ORDERED: diphenhydrAMINE 50 MG CAP PO STA (04:04)
--- NOTE | 2021-06-11 04:06 | ED ---
Recheck HPI - General Chief Complaint: Recheck/Abnormal Lab/Rx Stated Complaint: Weakness Time Seen by Provider: 06/11/21 03:26 Source: patient, EMS, RN notes reviewed, old records reviewed Mode of arrival: ambulatory Limitations: no limitations - History of Present Illness Initial Comments: This is a 50-year-old female who is well-known to our facility. Patient believes she is having a medication reaction to lisinopril. She was just started this 2 days ago stabbing feel well. She is without any other specific complaints is feeling some generalized weakness tingling more ALLERGIC type symptoms. Mild nausea no vomiting. Patient has no headache chest pain shortness breath or abdominal pain. No other significant complaints MD Complaint: other (Patient just started on lisinopril) -: days(s) Returns Today for: other (Patient continues to not feel well since starting lisinopril) Symptoms Since Prior Visit: no new symptoms Context: planned re-check Associated Symptoms: none Treatments Prior to Arrival: other (none) - Related Data Home Medications Medication Instructions Recorded Confirmed Atorvastatin [Lipitor] 80 mg PO HS 06/25/19 06/09/21 lisinopriL 40 mg PO DAILY 09/24/20 06/09/21 metFORMIN HCL [Glucophage] 500 mg PO DAILY 09/24/20 06/09/21 traZODone HCL 50 - 100 mg PO HS PRN 01/11/21 06/09/21 Ergocalciferol (Vitamin D2) 1,250 mcg PO TU 03/03/21 06/09/21 [Drisdol (50,000 Iu)] Esomeprazole Magnesium [NexIUM] 20 mg PO DAILY 03/28/21 06/09/21 INSULIN ASPART (NovoLOG) [NovoLOG 18 unit SQ AC-TID 04/26/21 06/09/21 (formulary)] Insulin Detemir (Levemir) [Levemir] 20 unit SQ DAILY 05/18/21 06/09/21 Previous Rx's Medication Instructions Recorded Fenofibrate [Lofibra] 160 mg PO DAILY #30 tab 03/23/19 Albuterol Inhaler [Ventolin Hfa 2 puff INHALATION RT-QID #8 gm 06/02/21 Inhaler] hydrOXYzine HCL [Atarax] 25 mg PO TID PRN #15 tab 06/04/21 predniSONE 50 mg PO DAILY #5 tab 06/04/21 Allergies Allergy/AdvReac Type Severity Reaction Status Date / Time levofloxacin [From Levaquin] Allergy Unknown Verified 06/11/21 03:14 Review of Systems ROS Statement: Those systems with pertinent positive or pertinent negative responses have been documented in the HPI. ROS Other: All systems not noted in ROS Statement are negative. Past Medical History Past Medical History: Diabetes Mellitus, GERD/Reflux, Hyperlipidemia, Hypertension, Syncope Additional Past Medical History / Comment(s): Pancreatitis twice, IDDM type II, UTI, chronic low back pain, bulging discs, dental abscesses in past. History of Any Multi-Drug Resistant Organisms: None Reported Past Surgical History: Tubal Ligation Additional Past Surgical History / Comment(s): Age 7 had VSD repair Past Anesthesia/Blood Transfusion Reactions: No Reported Reaction Past Psychological History: No Psychological Hx Reported Smoking Status: Former smoker Past Alcohol Use History: None Reported Past Drug Use History: None Reported - Past Family History Mother Family Medical History: No Reported History Additional Family Medical History / Comment(s): Mother was healthy. She is , pt cannot recall cause of . Father Family Medical History: Pneumonia Additional Family Medical History / Comment(s): Father at the age of 67yrs from pneumonia General Exam General appearance: alert, in no apparent distress Head exam: Present: atraumatic, normocephalic, normal inspection Eye exam: Present: normal appearance, PERRL, EOMI. Absent: scleral icterus, conjunctival injection, periorbital swelling ENT exam: Present: normal exam, mucous membranes moist Neck exam: Present: normal inspection. Absent: tenderness, meningismus, lymphadenopathy Respiratory exam: Present: normal lung sounds bilaterally. Absent: respiratory distress, wheezes, rales, rhonchi, stridor Cardiovascular Exam: Present: regular rate, normal rhythm, normal heart sounds. Absent: systolic murmur, diastolic murmur, rubs, gallop, clicks GI/Abdominal exam: Present: soft, normal bowel sounds. Absent: distended, tenderness, guarding, rebound, rigid Extremities exam: Present: normal inspection, full ROM, normal capillary refill. Absent: tenderness, pedal edema, joint swelling, calf tenderness Back exam: Present: normal inspection Neurological exam: Present: alert, oriented X3, CN II-XII intact Psychiatric exam: Present: normal affect, normal mood Skin exam: Present: warm, dry, intact, normal color. Absent: rash Course Vital Signs 06/11/21 03:11 Temperature 98.7 F Pulse Rate 80 Respiratory 18 Rate Blood Pressure 176/79 O2 Sat by Pulse 98 Oximetry - Reevaluation(s) Reevaluation #1: 06/11/21 Medical record is reviewed Patient symptoms are improved here in the ER Patient feels comfortable for discharge home Medical Decision Making - Medical Decision Making 50 female to the emergency department for evaluation presents today for evaluation of not feeling well after starting new medication. Patient is going to stop this medication no significant ALLERGIES noted. More side effects profile. Patient feels better here in the ER can be discharged home Disposition Clinical Impression: Medication reaction Disposition: HOME SELF-CARE Condition: Good Instructions (If sedation given, give patient instructions): Allergies (ED) Is patient prescribed a controlled substance at d/c from ED?: No Referrals: Guillermo Cerda MD [Primary Care Provider] - 1-2 days
== END 2021-06-11 04:31 | disposition home or self-care (01) ==
LOC: EC 03:10
DX: R53.1 Weakness (principal); Z87.891 Personal history of nicotine dependence; T46.5X5A Adverse effect of other antihypertensive drugs, initial encounter; I10 Essential (primary) hypertension; Z88.1 Allergy status to other antibiotic agents
CPT/HCPCS: 99284; S0183

== ENCOUNTER 2021-07-08 18:34 | Observation (INO) | payer MEDICARE ==
[2021-07-08] MEDS ORDERED: SODIUM CHLORIDE 0.9% 500 ML 500 ML IV STA (18:52)
[2021-07-08 19:26] LABS: Anisocytosis Slight; Basophils # (A) 0.1 k/uL (0-0.2); Basophils % (A) 1 %; Eosinophils # (A) 0.2 k/uL (0-0.7); Eosinophils % (A) 3 %; HCT 34.3 % (34.0-46.0); HGB 10.4 gm/dL (11.4-16.0); Hypochromasia Moderate; Lymphocytes # (A) 1.6 k/uL (1.0-4.8); Lymphocytes % (A) 17 %; MCH 25.8 pg (25.0-35.0); MCHC 30.3 g/dL (31.0-37.0); MCV 85.2 fL (80.0-100.0); Mean Platelet Volume 7.5; Monocytes # (A) 0.3 k/uL (0-1.0); Monocytes % (A) 3 %; Neutrophils % (A) 75 %; Platelet Count 653 k/uL (150-450); RBC 4.02 m/uL (3.80-5.40); RDW 18.3 % (11.5-15.5); WBC 9.4 k/uL (3.8-10.6)
--- NOTE | 2021-07-08 19:30 | ED ---
General Adult HPI - General Chief complaint: Weakness Stated complaint: AMS Time Seen by Provider: 07/08/21 18:38 Source: patient, RN notes reviewed, old records reviewed Mode of arrival: ambulatory Limitations: no limitations - History of Present Illness Initial comments: 50-year-old female presenting for evaluation of generalized weakness and fatigue. Patient has had several ER visits over the past month with similar complaints. She denies vomiting. She denies chest pain. Denies abdominal pain. She has some urinary frequency and dysuria. No headache. No focal numbness or weakness. She did call her primary care physician but was unable to speak with him. - Related Data Home Medications Medication Instructions Recorded Confirmed Atorvastatin [Lipitor] 80 mg PO HS 06/25/19 07/08/21 lisinopriL 40 mg PO DAILY 09/24/20 07/08/21 metFORMIN HCL [Glucophage] 500 mg PO DAILY 09/24/20 07/08/21 traZODone HCL 50 - 100 mg PO HS PRN 01/11/21 07/08/21 Ergocalciferol (Vitamin D2) 1,250 mcg PO TU 03/03/21 07/08/21 [Drisdol (50,000 Iu)] Esomeprazole Magnesium [NexIUM] 20 mg PO DAILY 03/28/21 07/08/21 INSULIN ASPART (NovoLOG) [NovoLOG 18 unit SQ AC-TID 04/26/21 07/08/21 (formulary)] Insulin Detemir (Levemir) [Levemir] 20 unit SQ DAILY 05/18/21 07/08/21 Previous Rx's Medication Instructions Recorded Fenofibrate [Lofibra] 160 mg PO DAILY #30 tab 03/23/19 Albuterol Inhaler [Ventolin Hfa 2 puff INHALATION RT-QID #8 gm 06/02/21 Inhaler] hydrOXYzine HCL [Atarax] 25 mg PO TID PRN #15 tab 06/04/21 Allergies Allergy/AdvReac Type Severity Reaction Status Date / Time levofloxacin [From Levaquin] Allergy Unknown Verified 07/08/21 19:24 Review of Systems ROS Statement: Those systems with pertinent positive or pertinent negative responses have been documented in the HPI. ROS Other: All systems not noted in ROS Statement are negative. Past Medical History Past Medical History: Diabetes Mellitus, GERD/Reflux, Hyperlipidemia, Hypertension, Syncope Additional Past Medical History / Comment(s): Pancreatitis twice, IDDM type II, UTI, chronic low back pain, bulging discs, dental abscesses in past. History of Any Multi-Drug Resistant Organisms: None Reported Past Surgical History: Tubal Ligation Additional Past Surgical History / Comment(s): Age 7 had VSD repair Past Anesthesia/Blood Transfusion Reactions: No Reported Reaction Past Psychological History: No Psychological Hx Reported Smoking Status: Former smoker Past Alcohol Use History: None Reported Past Drug Use History: None Reported - Past Family History Mother Family Medical History: No Reported History Additional Family Medical History / Comment(s): Mother was healthy. She is , pt cannot recall cause of . Father Family Medical History: Pneumonia Additional Family Medical History / Comment(s): Father at the age of 67yrs from pneumonia General Exam Limitations: no limitations General appearance: alert, in no apparent distress Head exam: Present: atraumatic, normocephalic Eye exam: Present: normal appearance, PERRL ENT exam: Present: normal exam Neck exam: Present: normal inspection. Absent: tenderness, meningismus Respiratory exam: Present: normal lung sounds bilaterally. Absent: respiratory distress, wheezes Cardiovascular Exam: Present: regular rate, normal rhythm GI/Abdominal exam: Present: soft. Absent: distended, tenderness, guarding Extremities exam: Present: normal inspection, normal capillary refill. Absent: pedal edema Neurological exam: Present: alert, oriented X3, CN II-XII intact. Absent: motor sensory deficit Psychiatric exam: Present: normal affect, normal mood Skin exam: Present: warm, dry, intact. Absent: cyanosis, diaphoretic Course Vital Signs 07/08/21 18:41 Temperature 98.8 F Pulse Rate 84 Respiratory 18 Rate Blood Pressure 128/70 O2 Sat by Pulse 97 Oximetry EKG Findings - EKG Comments: EKG Findings:: EKG: Sinus rhythm no ST segment elevation, rate of 82 LA interval 151, QRS duration 87, QTC 376. Medical Decision Making - Medical Decision Making 42-year-old female presenting with generalized weakness, fatigue. Patient has stable vitals upon arrival. EKG is sinus rhythm. Patient has normal CBC. She has significant electrolyte abnormalities including hyponatremia which is likely pseudohyponatremia secondary to hyperglycemia. Her blood sugars 500. She has acidosis with a low CO2 this is likely secondary to lactic acidosis from dehydration. She's given IV fluids as well as IV insulin in the emergency department. She does not have ketones in the urine. The majority of her labs are relatively stable from prior. She will be admitted for sugar control and hydration. Case discussed with Dr. Cerda who will accept admission. - Lab Data Result diagrams: 07/08/21 19:14 07/08/21 19:14 Lab Results 07/08/21 07/08/21 07/08/21 Range/Units 19:14 19:14 19:14 WBC 9.4 (3.8-10.6) k/uL RBC 4.02 (3.80-5.40) m/uL Hgb 10.4 L (11.4-16.0) gm/dL Hct 34.3 (34.0-46.0) % MCV 85.2 (80.0-100.0) fL MCH 25.8 (25.0-35.0) pg MCHC 30.3 L (31.0-37.0) g/dL RDW 18.3 H (11.5-15.5) % Plt Count 653 H (150-450) k/uL MPV 7.5 Neutrophils % 75 % Lymphocytes % 17 % Monocytes % 3 % Eosinophils % 3 % Basophils % 1 % Neutrophils # 7.0 (1.3-7.7) k/uL Lymphocytes # 1.6 (1.0-4.8) k/uL Monocytes # 0.3 (0-1.0) k/uL Eosinophils # 0.2 (0-0.7) k/uL Basophils # 0.1 (0-0.2) k/uL Hypochromasia Moderate Anisocytosis Slight PT 10.0 (9.0-12.0) sec INR 0.9 (<1.2) APTT 18.8 L (22.0-30.0) sec Sodium (137-145) mmol/L Potassium (3.5-5.1) mmol/L Chloride (98-107) mmol/L Carbon Dioxide (22-30) mmol/L Anion Gap mmol/L BUN (7-17) mg/dL Creatinine (0.52-1.04) mg/dL Est GFR (CKD-EPI)AfAm (>60 ml/min/1.73 sqM) Est GFR (CKD-EPI)NonAf (>60 ml/min/1.73 sqM) Glucose (74-99) mg/dL Plasma Lactic Acid Travon (0.7-2.0) mmol/L Calcium (8.4-10.2) mg/dL Magnesium (1.6-2.3) mg/dL Total Bilirubin (0.2-1.3) mg/dL AST (14-36) U/L ALT (4-34) U/L Alkaline Phosphatase (38-126) U/L Troponin I (0.000-0.034) ng/mL Total Protein (6.3-8.2) g/dL Albumin (3.5-5.0) g/dL Urine Color Light Yellow Urine Appearance Clear (Clear) Urine pH 5.5 (5.0-8.0) Ur Specific Brimley 1.022 (1.001-1.035) Urine Protein Negative (Negative) Urine Glucose (UA) 4+ H (Negative) Urine Ketones Negative (Negative) Urine Blood Negative (Negative) Urine Nitrite Negative (Negative) Urine Bilirubin Negative (Negative) Urine Urobilinogen <2.0 (<2.0) mg/dL Ur Leukocyte Esterase Trace H (Negative) Urine RBC 1 (0-5) /hpf Urine WBC 3 (0-5) /hpf Ur Squamous Epith Cells 1 (0-4) /hpf Urine Bacteria Rare H (None) /hpf 07/08/21 07/08/21 07/08/21 Range/Units 19:14 19:14 19:14 WBC (3.8-10.6) k/uL RBC (3.80-5.40) m/uL Hgb (11.4-16.0) gm/dL Hct (34.0-46.0) % MCV (80.0-100.0) fL MCH (25.0-35.0) pg MCHC (31.0-37.0) g/dL RDW (11.5-15.5) % Plt Count (150-450) k/uL MPV Neutrophils % % Lymphocytes % % Monocytes % % Eosinophils % % Basophils % % Neutrophils # (1.3-7.7) k/uL Lymphocytes # (1.0-4.8) k/uL Monocytes # (0-1.0) k/uL Eosinophils # (0-0.7) k/uL Basophils # (0-0.2) k/uL Hypochromasia Anisocytosis PT (9.0-12.0) sec INR (<1.2) APTT (22.0-30.0) sec Sodium 129 L (137-145) mmol/L Potassium 5.4 H (3.5-5.1) mmol/L Chloride 100 (98-107) mmol/L Carbon Dioxide 16 L (22-30) mmol/L Anion Gap 13 mmol/L BUN 30 H (7-17) mg/dL Creatinine 1.13 H (0.52-1.04) mg/dL Est GFR (CKD-EPI)AfAm 67 (>60 ml/min/1.73 sqM) Est GFR (CKD-EPI)NonAf 58 (>60 ml/min/1.73 sqM) Glucose 482 H (74-99) mg/dL Plasma Lactic Acid Travon 3.8 H* (0.7-2.0) mmol/L Calcium 8.7 (8.4-10.2) mg/dL Magnesium 1.7 (1.6-2.3) mg/dL Total Bilirubin 0.6 (0.2-1.3) mg/dL AST 50 H (14-36) U/L ALT 26 (4-34) U/L Alkaline Phosphatase 110 (38-126) U/L Troponin I <0.012 (0.000-0.034) ng/mL Total Protein 6.8 (6.3-8.2) g/dL Albumin 3.7 (3.5-5.0) g/dL Urine Color Urine Appearance (Clear) Urine pH (5.0-8.0) Ur Specific Brimley (1.001-1.035) Urine Protein (Negative) Urine Glucose (UA) (Negative) Urine Ketones (Negative) Urine Blood (Negative) Urine Nitrite (Negative) Urine Bilirubin (Negative) Urine Urobilinogen (<2.0) mg/dL Ur Leukocyte Esterase (Negative) Urine RBC (0-5) /hpf Urine WBC (0-5) /hpf Ur Squamous Epith Cells (0-4) /hpf Urine Bacteria (None) /hpf Disposition Clinical Impression: Lactic acidosis, Dehydration, JOE (acute kidney injury), Hyperglycemia Disposition: ADMITTED IP TO THIS HOSP Condition: Stable Is patient prescribed a controlled substance at d/c from ED?: No Referrals: Guillermo Cerda MD [Primary Care Provider] - 1-2 days Decision to Admit Reason: Admit from EC Decision Date: 07/08/21 Decision Time: 20:54
[2021-07-08 19:35] LABS: Appearance,Urine Clear (Clear); Bacteria,Urine Rare /hpf; Bilirubin,Urine Negative (Negative); Blood,Urine Negative (Negative); Color,Urine Light Yellow; Glucose,Urine (UA) 4+ (Negative); Ketones,Urine Negative (Negative); Leukocyte Esterase,Urine Trace (Negative); Nitrite,Urine Negative (Negative); PH, Urine 5.5 (5.0-8.0); Protein,Urine Negative (Negative); RBC,Urine 1 /hpf (0-5); Specific Gravity,Urine 1.022 (1.001-1.035); Squamous Epithelial Cell,Urine 1 /hpf (0-4); Urobilinogen,Urine <2.0 mg/dL (<2.0); WBC,Urine 3 /hpf (0-5)
[2021-07-08 19:38] LABS: Albumin 3.7 g/dL (3.5-5.0); Calcium 8.7 mg/dL (8.4-10.2); Magnesium 1.7 mg/dL (1.6-2.3); Potassium 5.4 mmol/L (3.5-5.1); Total Bilirubin 0.6 mg/dL (0.2-1.3); Total Protein 6.8 g/dL (6.3-8.2)
--- NOTE | 2021-07-08 19:43 | XR ---
EXAMINATION TYPE: XR chest 2V DATE OF EXAM: 07/08/2021 COMPARISON: 06/09/2021 HISTORY: 50-year-old female with weakness and body aches TECHNIQUE: PA and lateral views FINDINGS: Heart upper limits of normal in size. Median sternotomy wires are present. Mild interstitial prominen ce is unchanged. Some strandy atelectasis or scarring at the left lower lung. No consolidation or ple ural effusion. IMPRESSION: Borderline heart size and chronic changes. Previous median sternotomy. No acute process seen.
[2021-07-08 19:49] LABS: INR 0.9 (<1.2)
[2021-07-08 20:03] LABS: Partial Thromboplastin Time 18.8 sec (22.0-30.0)
[2021-07-08] MEDS ORDERED: SODIUM CHLORIDE 0.9% 1,000 ML IV ONE (20:14)
[2021-07-08] MEDS ORDERED: INSULIN REGULAR 100 UNIT/ML VIAL (IV) IV ONE (20:42)
[2021-07-08] MEDS ORDERED: hydrOXYzine HCL 25 MG TAB PO PRN (20:49)
[2021-07-08] MEDS ORDERED: NALOXONE 0.4 MG/ML 1 ML VIAL IV PRN (20:49)
[2021-07-08] MEDS: SODIUM CHLORIDE 0.9% 1,000 ML IV SCH (22:27)
[2021-07-08] MEDS: ACETAMINOPHEN TAB 325 MG TAB PO PRN (22:36)
[2021-07-08 22:37] LABS: Glucose,Whole Blood 526 mg/dL (75-99)
[2021-07-09 00:01] LABS: Glucose,Whole Blood 473 mg/dL (75-99)
[2021-07-09] MEDS: INSULIN ASPART (NovoLOG) 100 UNIT/ML VIAL SQ SCH ×5 (00:35→20:57)
[2021-07-09 01:53] LABS: Glucose,Whole Blood 309 mg/dL (75-99)
[2021-07-09] MEDS: ACETAMINOPHEN TAB 325 MG TAB PO PRN ×2 (03:12→11:56)
[2021-07-09] MEDS ORDERED: INSULIN DETEMIR (LEVEMIR) 100 UNIT/ML SYR SQ SCH (07:00)
[2021-07-09 07:14] LABS: Glucose,Whole Blood 402 mg/dL (75-99)
[2021-07-09] MEDS: ALBUTEROL NEBULIZED 2.5 MG/3 ML INHALATION SCH ×4 (07:34→20:25)
[2021-07-09] MEDS: PANTOPRAZOLE 40 MG TABLET PO SCH (07:55)
[2021-07-09] MEDS: SODIUM CHLORIDE 0.9% 1,000 ML IV SCH ×2 (07:55→17:54)
[2021-07-09] MEDS: lisinopriL 20 MG TAB PO SCH (07:55)
[2021-07-09] MEDS: metFORMIN 500 MG TAB PO SCH (07:55)
[2021-07-09 12:27] LABS: Glucose,Whole Blood 315 mg/dL (75-99)
[2021-07-09] MEDS: HYDROmorphone 0.5 MG/0.5 ML SYRINGE IVP PRN ×2 (13:54→20:57)
--- NOTE | 2021-07-09 17:06 | HP ---
HISTORY AND PHYSICAL CHIEF COMPLAINT: 2-3 day history of abdominal pain with nausea and vomiting and dehydration. HISTORY OF PRESENT ILLNESS: This is another admission for this 50-year-old obese white female who has poorly- controlled insulin-dependent diabetes mellitus, obesity, noncompliance, hypertriglyceridemia and chronic pancreatitis. She has been having upper abdominal pain for the last 2-3 days with some nausea. She has also had some back pain. She has had no fever or chills. REVIEW OF SYSTEMS: She has had no headaches, chest pain, shortness of breath, hematemesis, melena, hematochezia, jaundice, dysuria, frequency, urgency, incontinence, etc. Past medical history, family history and personal and social histories are all otherwise unremarkable and unchanged from her previous admitting and discharge summaries. She does not come to the office. Sugars are not well controlled. She does not drink alcohol. Efforts have been made to keep her triglycerides under control, which were not successful. PHYSICAL EXAMINATION: Blood pressure is 125/90 with a pulse of 86, respirations 34, and she is afebrile. In GENERAL, she appeared to be overweight, in no acute distress. Lymph nodes are not enlarged. HEAD, ears, eyes, nose, mouth and throat are normal. NECK veins not distended. CHEST is clear. CARDIAC exam demonstrates normal sinus rhythm and no murmurs or extra sounds. The ABDOMEN is protuberant, soft and slightly tender in the upper aspect. No definite masses or visceromegaly. Bowel sounds present. EXTREMITIES: Normal. NEUROLOGICALLY: She is intact. IMPRESSION: She is admitted to the hospital with diagnoses: 1. Abdominal pain. 2. Chronic pancreatitis. 3. Hypertriglyceridemia. 4. Uncontrolled insulin-dependent diabetes mellitus. 5. Dehydration. PLAN: 1. Bedrest. 2. IV fluids. 3. Rehydrate. 4. Control blood sugars. 5. Follow pancreatic enzymes. MMODL / IJN: [id number] /
--- NOTE | 2021-07-09 17:16 | PN ---
PROGRESS NOTE CHIEF COMPLAINT: Abdominal pain with nausea, vomiting and dehydration. HISTORY OF PRESENT ILLNESS: This lady is still complaining of quite a bit of pain. She has had no further vomiting. She has had no fever. PHYSICAL EXAMINATION: Chest is clear. Cardiac exam is normal. Abdomen is protuberant. She is slightly tender in the upper portions without any visceromegaly. Bowel sounds are present. IMPRESSION: 1. Abdominal, back pain, etiology unknown. 2. History of pancreatitis. 3. Hypertriglyceridemia. 4. Uncontrolled diabetes. PLAN: 1. Continue with IV fluids. 2. Analgesics. 3. Monitor lipase, triglycerides. 4. Control blood sugars. MMODL / IJN: [id number] /
[2021-07-09 17:31] LABS: Glucose,Whole Blood 247 mg/dL (75-99)
[2021-07-09 20:11] LABS: Glucose,Whole Blood 392 mg/dL (75-99)
[2021-07-10] MEDS: HYDROmorphone 0.5 MG/0.5 ML SYRINGE IVP PRN ×4 (03:24→22:08)
[2021-07-10] MEDS: SODIUM CHLORIDE 0.9% 1,000 ML IV SCH ×2 (04:57→13:09)
[2021-07-10 07:27] LABS: Glucose,Whole Blood 214 mg/dL (75-99)
[2021-07-10] MEDS: ALBUTEROL NEBULIZED 2.5 MG/3 ML INHALATION SCH ×4 (08:03→20:29)
[2021-07-10] MEDS: INSULIN DETEMIR (LEVEMIR) 100 UNIT/ML SYR SQ SCH (08:22)
[2021-07-10] MEDS: INSULIN ASPART (NovoLOG) 100 UNIT/ML VIAL SQ SCH ×4 (08:22→22:07)
[2021-07-10] MEDS: lisinopriL 20 MG TAB PO SCH (08:23)
[2021-07-10] MEDS: PANTOPRAZOLE 40 MG TABLET PO SCH (08:23)
[2021-07-10] MEDS: metFORMIN 500 MG TAB PO SCH (08:23)
[2021-07-10 11:36] LABS: Anisocytosis Slight; Basophils % (A) 1 %; Eosinophils # (A) 0.2 k/uL (0-0.7); Eosinophils % (A) 3 %; HCT 34.1 % (34.0-46.0); Hypochromasia Marked; Lymphocytes # (A) 1.9 k/uL (1.0-4.8); Lymphocytes % (A) 28 %; MCH 26.3 pg (25.0-35.0); MCHC 29.3 g/dL (31.0-37.0); MCV 89.7 fL (80.0-100.0); Mean Platelet Volume 7.9; Monocytes # (A) 0.3 k/uL (0-1.0); Monocytes % (A) 5 %; Neutrophils % (A) 61 %; Platelet Count 529 k/uL (150-450); RDW 18.4 % (11.5-15.5); WBC 6.5 k/uL (3.8-10.6)
[2021-07-10 12:12] LABS: Glucose,Whole Blood 307 mg/dL (75-99)
[2021-07-10 14:19] LABS: Estimated Average Glucose UNC
[2021-07-10 16:21] LABS: ALT 24 U/L (8-44); AST 51 U/L (13-35); African American GFR (CKD) 77.2 (60.0-200.0); Albumin 3.4 g/dL (3.8-4.9); Albumin/Globulin Ratio 1.42 (1.60-3.17); Alkaline Phosphatase 95 U/L (41-126); Blood Urea Nitrogen 28.4 mg/dL (9.0-27.0); Carbon Dioxide 10.6 mmol/L (20.0-27.5); Chloride 104 mmol/L (96-109); Globulin 2.4 g/dL (1.6-3.3); Glucose 207 mg/dL (70-110); Lipase 65 U/L (14-63); Non-African American GFR(CKD) 66.6 (60.0-200.0); Potassium 5.2 mmol/L (3.5-5.5); Sodium 137 mmol/L (135-145); Total Bilirubin <0.15 mg/dL (0.30-1.20); Total Protein 5.8 g/dL (6.2-8.2)
[2021-07-10 17:17] LABS: Glucose,Whole Blood 346 mg/dL (75-99)
--- NOTE | 2021-07-10 17:57 | PN ---
PROGRESS NOTE CHIEF COMPLAINT: Uncontrolled diabetes and abdominal pain. HISTORY OF PRESENT ILLNESS: This lady is doing fairly well. Pain seems to be subsiding. Blood sugars are coming down. We will repeat laboratory studies today. PHYSICAL EXAMINATION: She is afebrile. Vital signs normal. Chest is clear. Cardiac exam is normal. The abdomen is protuberant and only mildly tender throughout. There are no masses. IMPRESSION: 1. Uncontrolled diabetes. 2. Abdominal pain. 3. History of pancreatitis. 4. Hypertriglyceridemia. PLAN: 1. Repeat laboratory studies. 2. Increase activity. 3. She might be able to go home tomorrow. MMODL / IJN: [id number] /
[2021-07-10] MEDS: ACETAMINOPHEN TAB 325 MG TAB PO PRN (20:21)
[2021-07-10 20:23] LABS: Glucose,Whole Blood 411 mg/dL (75-99)
[2021-07-11] MEDS: SODIUM CHLORIDE 0.9% 1,000 ML IV SCH (01:36)
[2021-07-11] MEDS: ACETAMINOPHEN TAB 325 MG TAB PO PRN (02:39)
[2021-07-11 04:52] VITALS: RESP 20
[2021-07-11] MEDS: HYDROmorphone 0.5 MG/0.5 ML SYRINGE IVP PRN ×2 (05:37→13:13)
[2021-07-11 07:12] LABS: Glucose,Whole Blood 312 mg/dL (75-99)
[2021-07-11] MEDS: metFORMIN 500 MG TAB PO SCH (08:03)
[2021-07-11] MEDS: INSULIN DETEMIR (LEVEMIR) 100 UNIT/ML SYR SQ SCH (08:03)
[2021-07-11] MEDS: PANTOPRAZOLE 40 MG TABLET PO SCH (08:03)
[2021-07-11] MEDS: lisinopriL 20 MG TAB PO SCH (08:03)
[2021-07-11] MEDS: INSULIN ASPART (NovoLOG) 100 UNIT/ML VIAL SQ SCH ×3 (08:03→18:01)
[2021-07-11] MEDS: ALBUTEROL NEBULIZED 2.5 MG/3 ML INHALATION SCH ×3 (09:31→16:47)
[2021-07-11 11:36] LABS: Glucose,Whole Blood 253 mg/dL (75-99)
[2021-07-11 12:21] VITALS: BP 129/71; TEMP 98.3
--- NOTE | 2021-07-11 15:19 | CDI ---
Documentation Clarification Form Date: 07/11/2021 03:07:09 PM From: Silvana Fontenot RN CCDS Admit Date: 07/08/2021 08:49:00 PM Patient Name: Dayna Le Visit Number: [id number] Discharge Date: ATTENTION: The Clinical Documentation Specialists (CDI) and [facility] Coding Staff appreciate your assistance in clarifying documentation. Please respond to the clarification below the line at the bottom and electronically sign. The CDI & [facility] Coding staff will review the response and follow-up if needed. Please note: Queries are made part of the Legal Health Record. If you have any questions, please contact the author of this message via ITS. Dr. Guillermo Cerda JOE is documented ED Note, 07/08, but is not noted in subsequent documentation. Clarification is requested. History/Risk Factors: 50-year-old female presents to the ED with generalized weakness and fatigue. Medical History: DM and chronic pancreatitis Clinical Indicators: VSS 07/08 B/P 128/70; HR 84; Temp 98.8 F Oral; RR 18; SpO2 97% ra LABS 07/08 NA 129; K 5.4; Bun 30; Cr 1.13, Lactic acid 3.8 Treatment: 07/08 0.9NS 500cc IVPB x 1; 07/08 0.9NS1L IVPB x 1; 07/08 current 0.9NS 100cc/hr Please clarify if the JOE is: [ ] JOE confirmed, remains under treatment [ ] JOE confirmed, resolved [ ] JOE ruled out [ ] Other condition, please specify [ ] Unable to determine (Template Last Revised: June 2020) MTDD
[2021-07-11 16:56] VITALS: PULSE 72
[2021-07-11 17:34] LABS: Glucose,Whole Blood 330 mg/dL (75-99)
--- NOTE | 2021-07-12 06:58 | DS ---
DISCHARGE SUMMARY CHIEF COMPLAINT: Abdominal pain and uncontrolled diabetes. HISTORY OF PRESENT ILLNESS AND PHYSICAL EXAMINATION: Details of this lady's history and physical can be found in the initial workup. LABORATORY STUDIES: While she was in the hospital, she had laboratory studies, details of which can be found in the laboratory section of her chart. COURSE IN THE HOSPITAL: After admission, she was placed on bedrest, started on intravenous fluids. Lipase was not as high as usual and trended down. Abdominal pain slowly subsided and she was able to eat. She was doing well except her blood sugars are still elevated but she will be discharged and her diabetes can be managed as an outpatient. She is very noncompliant. FINAL DIAGNOSES: 1. Abdominal pain. 2. Lipase. 3. Hypertriglyceridemia. 4. Uncontrolled diabetes. OPERATIONS: None. CONSULTATION: None She is improved. MMODL / EVELINN: [id number] /
[2021-07-12] MEDS ORDERED: INSULIN DETEMIR (LEVEMIR) 100 UNIT/ML SYR SQ SCH (07:00)
--- NOTE | 2021-07-12 15:54 | MISC ---
MISCELLANOUS REPORT QUERY: Acute kidney injury, under treatment. MMODL / IJN: [id number] /
== END 2021-07-11 18:04 | disposition home or self-care (01) ==
LOC: EC 18:34 → 5NMEDONC 20:49 → INTOOBSV 20:49 → 5NMEDONC 21:48 → UNDODISIN 07-11 18:04
PROVIDERS: ADMIT Family Medicine; ATTEND Family Medicine
DX: E11.65 Type 2 diabetes mellitus with hyperglycemia (principal); K86.1 Other chronic pancreatitis; E86.0 Dehydration; N17.9 Acute kidney failure, unspecified; E87.2 Acidosis; E78.1 Pure hyperglyceridemia; Z91.19 Patient's noncompliance with other medical treatment and regimen; E66.9 Obesity, unspecified; Z68.36 Body mass index [BMI] 36.0-36.9, adult; R30.0 Dysuria; K21.9 Gastro-esophageal reflux disease without esophagitis; E78.5 Hyperlipidemia, unspecified; I10 Essential (primary) hypertension; G89.29 Other chronic pain; M54.50 Low back pain, unspecified; E87.1 Hypo-osmolality and hyponatremia; Z79.84 Long term (current) use of oral hypoglycemic drugs; Z79.4 Long term (current) use of insulin; Z79.899 Other long term (current) drug therapy; Z88.1 Allergy status to other antibiotic agents; Z87.891 Personal history of nicotine dependence; Z87.440 Personal history of urinary (tract) infections; Z83.6 Family history of other diseases of the respiratory system
CPT/HCPCS: 96376; 96361 ×3; 96374; 99285; 36415; 94640 ×6; 93005; 80053 ×2; 83605 ×3; 83690 ×2; 83735; 84484; 85025 ×2; 85610; 85730; 81001; 83036; 71046; G0378 ×4; J1170 ×3

== ENCOUNTER 2021-07-21 09:46 | Inpatient (IN) | payer MEDICARE ==
[2021-07-21] MEDS ORDERED: SODIUM CHLORIDE 0.9% 2,000 ML IV STA (10:15)
[2021-07-21] MEDS ORDERED: ALBUTEROL NEBULIZED 2.5 MG/3 ML INHALATION STA (10:15)
[2021-07-21] MEDS ORDERED: ONDANSETRON 4 MG/2 ML VIAL IVP STA (10:16)
--- NOTE | 2021-07-21 10:46 | XR ---
EXAMINATION TYPE: XR chest 2V DATE OF EXAM: 07/21/2021 COMPARISON: Chest x-ray July 08, 2021. HISTORY: General malaise. Body aches. Cough with sputum. TECHNIQUE: Frontal and lateral views of the chest are obtained. FINDINGS: There is no suspicious focal air space opacity, pleural effusion, or pneumothorax seen. T he cardiac silhouette size is within normal limits. The osseous structures are intact. Overlying st ernal wires are redemonstrated. IMPRESSION: No acute process. No significant change from prior.
[2021-07-21 10:56] LABS: Appearance,Urine Clear (Clear); Bacteria,Urine Few /hpf; Bilirubin,Urine Negative (Negative); Blood,Urine Negative (Negative); Color,Urine Light Yellow; Glucose,Urine (UA) 2+ (Negative); Ketones,Urine Negative (Negative); Leukocyte Esterase,Urine Trace (Negative); Mucus,Urine Rare /hpf; Nitrite,Urine Negative (Negative); PH, Urine 5.5 (5.0-8.0); Protein,Urine Trace (Negative); RBC,Urine 1 /hpf (0-5); Specific Gravity,Urine 1.018 (1.001-1.035); Squamous Epithelial Cell,Urine 2 /hpf (0-4); Urobilinogen,Urine <2.0 mg/dL (<2.0); WBC,Urine 7 /hpf (0-5)
[2021-07-21] MEDS ORDERED: CEPHALEXIN 250 MG CAP PO STA (10:59)
--- NOTE | 2021-07-21 11:00 | ED ---
General Adult HPI - General Chief complaint: Recheck/Abnormal Lab/Rx Stated complaint: body aches Time Seen by Provider: 07/21/21 09:59 Source: patient, EMS Limitations: no limitations - History of Present Illness Initial comments: Patient is a 50-year-old female who presents to the emergency department with a chief complaint of body aches and wet cough. Patient states symptoms started 2 days ago. Patient states the sputum is clear-colored. She denies other upper respiratory symptoms such as fever, chills, runny nose, congestion, sore throat. She denies chest pain and shortness of breath. Patient does report intermittent lower abdominal pain as well as intermittent burning with urination. Upon questioning she reports nausea and 2-3 episodes of diarrhea daily, nonbloody. She denies vomiting. She denies recent antibiotic use or sick contacts. She is COVID-19 and influenza vaccinated. - Related Data Home Medications Medication Instructions Recorded Confirmed Atorvastatin [Lipitor] 80 mg PO HS 06/25/19 07/08/21 lisinopriL 40 mg PO DAILY 09/24/20 07/08/21 metFORMIN HCL [Glucophage] 500 mg PO DAILY 09/24/20 07/08/21 traZODone HCL 50 - 100 mg PO HS PRN 01/11/21 07/08/21 Ergocalciferol (Vitamin D2) 1,250 mcg PO TU 03/03/21 07/08/21 [Drisdol (50,000 Iu)] Esomeprazole Magnesium [NexIUM] 20 mg PO DAILY 03/28/21 07/08/21 INSULIN ASPART (NovoLOG) [NovoLOG 18 unit SQ AC-TID 04/26/21 07/08/21 (formulary)] Previous Rx's Medication Instructions Recorded Fenofibrate [Lofibra] 160 mg PO DAILY #30 tab 03/23/19 Albuterol Inhaler [Ventolin Hfa 2 puff INHALATION RT-QID #8 gm 06/02/21 Inhaler] hydrOXYzine HCL [Atarax] 25 mg PO TID PRN #15 tab 06/04/21 Insulin Detemir (Levemir) [Levemir] 56 unit SQ DAILY@0700 30 Days #2 07/11/21 dispenser Allergies Allergy/AdvReac Type Severity Reaction Status Date / Time levofloxacin [From Levaquin] Allergy Unknown Verified 07/08/21 19:24 Review of Systems ROS Statement: Those systems with pertinent positive or pertinent negative responses have been documented in the HPI. ROS Other: All systems not noted in ROS Statement are negative. Past Medical History Past Medical History: Diabetes Mellitus, GERD/Reflux, Hyperlipidemia, Hypertension, Syncope Additional Past Medical History / Comment(s): Pancreatitis twice, IDDM type II, UTI, chronic low back pain, bulging discs, dental abscesses in past. History of Any Multi-Drug Resistant Organisms: None Reported Past Surgical History: Tubal Ligation Additional Past Surgical History / Comment(s): Age 7 had VSD repair Past Anesthesia/Blood Transfusion Reactions: No Reported Reaction Past Psychological History: No Psychological Hx Reported Smoking Status: Former smoker Past Alcohol Use History: None Reported Past Drug Use History: None Reported - Past Family History Mother Family Medical History: No Reported History Additional Family Medical History / Comment(s): Mother was healthy. She is , pt cannot recall cause of . Father Family Medical History: Pneumonia Additional Family Medical History / Comment(s): Father at the age of 67yrs from pneumonia General Exam Limitations: no limitations General appearance: alert, in no apparent distress Head exam: Present: atraumatic, normocephalic, normal inspection Eye exam: Present: normal appearance, PERRL, EOMI. Absent: scleral icterus, conjunctival injection, periorbital swelling ENT exam: Present: normal oropharynx, mucous membranes moist Neck exam: Present: normal inspection, full ROM Respiratory exam: Present: wheezes (Throughout). Absent: respiratory distress, rales, rhonchi, stridor, chest wall tenderness, accessory muscle use, decreased breath sounds, prolonged expiratory Cardiovascular Exam: Present: regular rate, normal rhythm, normal heart sounds. Absent: systolic murmur, diastolic murmur, rubs, gallop, clicks GI/Abdominal exam: Present: soft, normal bowel sounds. Absent: distended, tenderness, guarding, rebound, rigid Back exam: Absent: CVA tenderness (R), CVA tenderness (L) Neurological exam: Present: alert, oriented X3, CN II-XII intact Psychiatric exam: Present: normal affect, normal mood Skin exam: Present: warm, dry, intact, normal color. Absent: rash Course Vital Signs 07/21/21 07/21/21 07/21/21 09:55 11:13 11:20 Temperature 98.1 F Pulse Rate 73 78 71 Respiratory 20 Rate Blood Pressure 126/72 O2 Sat by Pulse 96 Oximetry Medical Decision Making - Medical Decision Making This is a 42-year-old female who presents with body aches and cough sputum 2 days. Thorough history and examination were performed. Patient is in no apparent distress and is well-appearing. Oxygen is 96% room air. She is afebrile. Lung auscultation reveals wheezes throughout. Patient denies shortness of breath. Chest x-ray shows no acute process. The abdomen is soft and nontender. Patient is hyperkalemic at 7.2. Hyperkalemia treatment was initiated. Urinalysis is concerning for infection. Keflex was given. Case discussed with Dr. Cerda. Patient will be admitted for further evaluation and management. On reevaluation patient requests pain medication for abdominal pain. She was given a GI cocktail. Case discussed with patient. She verbalizes understanding and is agreeable to admission. Dr. Hernandez is my attending. - Lab Data Result diagrams: 07/21/21 10:20 07/21/21 10:20 Lab Results 07/21/21 07/21/21 07/21/21 Range/Units 10:20 10:20 10:20 WBC 7.7 (3.8-10.6) k/uL RBC 4.08 (3.80-5.40) m/uL Hgb 10.5 L (11.4-16.0) gm/dL Hct 34.5 (34.0-46.0) % MCV 84.7 D (80.0-100.0) fL MCH 25.7 (25.0-35.0) pg MCHC 30.3 L (31.0-37.0) g/dL RDW 17.8 H (11.5-15.5) % Plt Count 596 H (150-450) k/uL MPV 7.3 Neutrophils % 69 % Lymphocytes % 23 % Monocytes % 4 % Eosinophils % 2 % Basophils % 1 % Neutrophils # 5.3 (1.3-7.7) k/uL Lymphocytes # 1.7 (1.0-4.8) k/uL Monocytes # 0.3 (0-1.0) k/uL Eosinophils # 0.2 (0-0.7) k/uL Basophils # 0.0 (0-0.2) k/uL Hypochromasia Marked Anisocytosis Slight Microcytosis Slight Sodium 133 L (137-145) mmol/L Potassium 7.2 H* (3.5-5.1) mmol/L Chloride 106 (98-107) mmol/L Carbon Dioxide 16 L (22-30) mmol/L Anion Gap 11 mmol/L BUN 30 H (7-17) mg/dL Creatinine 1.15 H (0.52-1.04) mg/dL Est GFR (CKD-EPI)AfAm 65 (>60 ml/min/1.73 sqM) Est GFR (CKD-EPI)NonAf 57 (>60 ml/min/1.73 sqM) Glucose 297 H (74-99) mg/dL Calcium 8.9 (8.4-10.2) mg/dL Total Bilirubin 0.5 (0.2-1.3) mg/dL AST 48 H (14-36) U/L ALT 26 (4-34) U/L Alkaline Phosphatase 117 (38-126) U/L Total Protein 6.9 (6.3-8.2) g/dL Albumin 3.7 (3.5-5.0) g/dL Lipase 273 (23-300) U/L Urine Color Urine Appearance (Clear) Urine pH (5.0-8.0) Ur Specific [place] (1.001-1.035) Urine Protein (Negative) Urine Glucose (UA) (Negative) Urine Ketones (Negative) Urine Blood (Negative) Urine Nitrite (Negative) Urine Bilirubin (Negative) Urine Urobilinogen (<2.0) mg/dL Ur Leukocyte Esterase (Negative) Urine RBC (0-5) /hpf Urine WBC (0-5) /hpf Ur Squamous Epith Cells (0-4) /hpf Urine Bacteria (None) /hpf Urine Mucus (None) /hpf Influenza Type A (PCR) Not Detected (Not Detectd) Influenza Type B (PCR) Not Detected (Not Detectd) RSV (PCR) Not Detected (Not Detectd) SARS-CoV-2 (PCR) Not Detected (Not Detectd) 07/21/21 Range/Units 10:20 WBC (3.8-10.6) k/uL RBC (3.80-5.40) m/uL Hgb (11.4-16.0) gm/dL Hct (34.0-46.0) % MCV (80.0-100.0) fL MCH (25.0-35.0) pg MCHC (31.0-37.0) g/dL RDW (11.5-15.5) % Plt Count (150-450) k/uL MPV Neutrophils % % Lymphocytes % % Monocytes % % Eosinophils % % Basophils % % Neutrophils # (1.3-7.7) k/uL Lymphocytes # (1.0-4.8) k/uL Monocytes # (0-1.0) k/uL Eosinophils # (0-0.7) k/uL Basophils # (0-0.2) k/uL Hypochromasia Anisocytosis Microcytosis Sodium (137-145) mmol/L Potassium (3.5-5.1) mmol/L Chloride (98-107) mmol/L Carbon Dioxide (22-30) mmol/L Anion Gap mmol/L BUN (7-17) mg/dL Creatinine (0.52-1.04) mg/dL Est GFR (CKD-EPI)AfAm (>60 ml/min/1.73 sqM) Est GFR (CKD-EPI)NonAf (>60 ml/min/1.73 sqM) Glucose (74-99) mg/dL Calcium (8.4-10.2) mg/dL Total Bilirubin (0.2-1.3) mg/dL AST (14-36) U/L ALT (4-34) U/L Alkaline Phosphatase (38-126) U/L Total Protein (6.3-8.2) g/dL Albumin (3.5-5.0) g/dL Lipase (23-300) U/L Urine Color Light Yellow Urine Appearance Clear (Clear) Urine pH 5.5 (5.0-8.0) Ur Specific [place] 1.018 (1.001-1.035) Urine Protein Trace H (Negative) Urine Glucose (UA) 2+ H (Negative) Urine Ketones Negative (Negative) Urine Blood Negative (Negative) Urine Nitrite Negative (Negative) Urine Bilirubin Negative (Negative) Urine Urobilinogen <2.0 (<2.0) mg/dL Ur Leukocyte Esterase Trace H (Negative) Urine RBC 1 (0-5) /hpf Urine WBC 7 H (0-5) /hpf Ur Squamous Epith Cells 2 (0-4) /hpf Urine Bacteria Few H (None) /hpf Urine Mucus Rare H (None) /hpf Influenza Type A (PCR) (Not Detectd) Influenza Type B (PCR) (Not Detectd) RSV (PCR) (Not Detectd) SARS-CoV-2 (PCR) (Not Detectd) Critical Care Time Critical Care Time: Yes Total Critical Care Time: 35 Disposition Clinical Impression: Hyperkalemia, Body aches, Cough Disposition: ADMITTED IP TO THIS HOSP Condition: Fair Referrals: Guillermo Cerda MD [Primary Care Provider] - 1-2 days Decision Time: 12:26
[2021-07-21 11:13] LABS: Anisocytosis Slight; Basophils % (A) 1 %; Eosinophils # (A) 0.2 k/uL (0-0.7); Eosinophils % (A) 2 %; HCT 34.5 % (34.0-46.0); HGB 10.5 gm/dL (11.4-16.0); Hypochromasia Marked; Lymphocytes # (A) 1.7 k/uL (1.0-4.8); Lymphocytes % (A) 23 %; MCH 25.7 pg (25.0-35.0); MCHC 30.3 g/dL (31.0-37.0); Mean Platelet Volume 7.3; Microcytosis Slight; Monocytes # (A) 0.3 k/uL (0-1.0); Monocytes % (A) 4 %; Neutrophils # (A) 5.3 k/uL (1.3-7.7); Neutrophils % (A) 69 %; Platelet Count 596 k/uL (150-450); RBC 4.08 m/uL (3.80-5.40); RDW 17.8 % (11.5-15.5); WBC 7.7 k/uL (3.8-10.6)
[2021-07-21 11:25] LABS: MCV 84.7 fL (80.0-100.0)
[2021-07-21 11:30] LABS: Albumin 3.7 g/dL (3.5-5.0); Calcium 8.9 mg/dL (8.4-10.2); Total Bilirubin 0.5 mg/dL (0.2-1.3); Total Protein 6.9 g/dL (6.3-8.2)
[2021-07-21 11:39] LABS: Potassium 7.2 mmol/L (3.5-5.1)
[2021-07-21] MEDS ORDERED: DEXTROSE 50% SYRINGE 50 ML IVP ONE (11:49)
[2021-07-21] MEDS ORDERED: SODIUM POLYSTYRENE SULFONATE 15 GM/60 ML BOTTLE PO ONE (11:49)
[2021-07-21] MEDS ORDERED: CALCIUM GLUCONATE IN NACL 1 GM in SALINE 1 100ML.BAG IVPB ONE (11:49)
[2021-07-21] MEDS ORDERED: ALBUTEROL NEB (CONC) 2.5 MG/0.5 ML INHALATION ONE (11:49)
[2021-07-21] MEDS ORDERED: SODIUM BICARB 8.4% 50 ML SYR (1 MEQ/ML) IV ONE (11:49)
[2021-07-21] MEDS ORDERED: INSULIN REGULAR 100 UNIT/ML VIAL (IV) IV ONE (11:49)
[2021-07-21] MEDS ORDERED: MAG HYDROX/AL HYDROX/SIMETH 30 ML, HYOSCYAMINE ELIXIR 10 ML, LIDOCAINE VISCOUS 2% 10 ML PO STA ×3 (12:09)
[2021-07-21] MEDS ORDERED: ACETAMINOPHEN TAB 500 MG TAB PO STA (14:16)
[2021-07-21] MEDS ORDERED: FUROSEMIDE 10 MG/ML 4 ML VIAL IV STA (15:21)
[2021-07-21] MEDS ORDERED: DEXTROSE 50% SYRINGE 50 ML IVP STA (15:22)
[2021-07-21] MEDS ORDERED: INSULIN REGULAR 100 UNIT/ML VIAL (IV) IV STA (15:23)
[2021-07-21] MEDS: SODIUM CHLORIDE 0.9% 1,000 ML IV SCH ×4 (15:45→23:07)
[2021-07-21 18:01] LABS: Glucose,Whole Blood 390 mg/dL (75-99)
[2021-07-21] MEDS: ACETAMINOPHEN TAB 500 MG TAB PO SCH ×2 (18:11→23:06)
[2021-07-21] MEDS: CEPHALEXIN 250 MG CAP PO SCH ×2 (18:11→21:38)
[2021-07-21] MEDS: INSULIN ASPART (NovoLOG) 100 UNIT/ML VIAL SQ SCH (18:12)
[2021-07-21 20:25] LABS: Glucose,Whole Blood 323 mg/dL (75-99)
[2021-07-21] MEDS: traMADol 50 MG TAB PO PRN (21:16)
[2021-07-21] MEDS: traZODone HCL 50 MG TAB PO PRN (23:06)
[2021-07-22] MEDS: SODIUM CHLORIDE 0.9% 1,000 ML IV SCH ×5 (05:22→22:08)
[2021-07-22] MEDS: IPRATROPIUM-ALBUTEROL 3 ML NEB INHALATION PRN ×2 (05:31→10:40)
[2021-07-22 06:40] LABS: Glucose,Whole Blood 267 mg/dL (75-99)
[2021-07-22] MEDS: INSULIN DETEMIR (LEVEMIR) 100 UNIT/ML SYR SQ SCH (06:58)
[2021-07-22] MEDS: INSULIN ASPART (NovoLOG) 100 UNIT/ML VIAL SQ SCH ×3 (06:58→16:44)
[2021-07-22] MEDS: ACETAMINOPHEN TAB 500 MG TAB PO SCH ×4 (06:59→23:31)
[2021-07-22 08:49] LABS: Calcium 8.4 mg/dL (8.4-10.2)
[2021-07-22 08:51] LABS: Potassium 6.1 mmol/L (3.5-5.1)
[2021-07-22] MEDS: CEPHALEXIN 250 MG CAP PO SCH ×4 (09:41→22:07)
[2021-07-22] MEDS: SODIUM POLYSTYRENE SULFONATE 15 GM/60 ML BOTTLE PO SCH (09:41)
[2021-07-22 11:45] LABS: Glucose,Whole Blood 290 mg/dL (75-99)
[2021-07-22] MEDS: traMADol 50 MG TAB PO PRN ×2 (12:05→22:07)
[2021-07-22 16:37] LABS: Glucose,Whole Blood 222 mg/dL (75-99)
--- NOTE | 2021-07-22 17:29 | HP ---
HISTORY AND PHYSICAL CHIEF COMPLAINT: Abdominal pain and hyperkalemia. HISTORY OF PRESENT ILLNESS: This is another admission for this 50-year-old white female who is in and out of the hospital all the time for poorly controlled insulin-dependent diabetes mellitus, chronic relapsing pancreatitis, and hypertriglyceridemia. Her history of present illness is otherwise unremarkable. She came to the emergency room because of complaints of body aches, abdominal pain and cough. She was found to have a UTI, but more importantly her potassium was 7.2. Her lipase was only 273. REVIEW OF SYSTEMS: She has had no headaches, neurologic problems, chest pain, shortness of breath, hemoptysis, purulent sputum production, nausea, vomiting, hematemesis, melena, hematochezia, jaundice, hematuria. Blood sugar was elevated. Past medical history, family history, and personal and social histories reveal that she has been on albuterol MDI, hydroxyzine 25 t.i.d. p.r.n., Levemir 56 units once a day, which she does not take regularly, trazodone 50 mg one or two at night, lisinopril 40 once a day, NovoLog 18 units three times a day, which she does not take consistently, fenofibrate 160 mg once a day, vitamin D and Nexium as well as metformin 500 mg once a day. She does smoke. She does not drink alcohol. PHYSICAL EXAMINATION: Blood pressure is 128/90 with a pulse of 81, respirations of 32, and she is afebrile. In general she appears to be obese and in no acute distress. Skin color is normal. Skin is warm and dry. Lymph nodes are not enlarged. Head, ears, eyes, nose, mouth and throat are normal. Neck veins are not distended. Thyroid is not enlarged. Chest is clear. Cardiac exam is normal and the abdomen is soft and nontender except for slight tenderness over the epigastrium. Bowel sounds are present. Extremities are normal. Neurologically she is intact. She is admitted to the hospital with the diagnoses: 1. Chronic relapsing pancreatitis. 2. Uncontrolled insulin-dependent diabetes mellitus. 3. Hypertriglyceridemia. 4. Hyperkalemia. PLAN: 1. Bedrest. 2. IV fluids. 3. Control blood sugars. 4. Correct hyperkalemia. MMODL / IJN: [id number] /
--- NOTE | 2021-07-22 17:35 | PN ---
PROGRESS NOTE DATE OF SERVICE: 07/22/2021 CHIEF COMPLAINT: Abdominal pain, hyperkalemia. HISTORY OF PRESENT ILLNESS: This lady is still complaining of some abdominal pain. She has had no fever or vomiting. Potassium is still elevated. PHYSICAL EXAMINATION: Her chest is clear. Cardiac exam is normal. The abdomen is soft and non-tender. She had been complaining of shortness of breath and the nurse took it upon herself to slow her IV rate. IMPRESSION: 1. Hyperkalemia. 2. Uncontrolled insulin-dependent diabetes mellitus due to poor compliance. 3. Hypertriglyceridemia. 4. Chronic relapsing pancreatitis. PLAN: 1. Increase IV normal saline to 125 mL/hour. 2. Kayexalate 15 grams once a day. MMODL / IJN: [id number] /
[2021-07-22 20:40] LABS: Glucose,Whole Blood 151 mg/dL (75-99)
[2021-07-23] MEDS: SODIUM CHLORIDE 0.9% 1,000 ML IV SCH ×3 (04:43→23:09)
[2021-07-23 06:34] LABS: Glucose,Whole Blood 172 mg/dL (75-99)
[2021-07-23] MEDS: ACETAMINOPHEN TAB 500 MG TAB PO SCH ×4 (06:51→23:10)
[2021-07-23] MEDS: INSULIN ASPART (NovoLOG) 100 UNIT/ML VIAL SQ SCH ×3 (06:52→17:57)
[2021-07-23] MEDS: INSULIN DETEMIR (LEVEMIR) 100 UNIT/ML SYR SQ SCH (06:52)
[2021-07-23] MEDS: CEPHALEXIN 250 MG CAP PO SCH ×4 (09:40→22:06)
[2021-07-23] MEDS: traMADol 50 MG TAB PO PRN ×2 (09:40→21:26)
[2021-07-23] MEDS: SODIUM POLYSTYRENE SULFONATE 15 GM/60 ML BOTTLE PO SCH (09:40)
[2021-07-23 11:53] LABS: Glucose,Whole Blood 263 mg/dL (75-99)
[2021-07-23 16:31] LABS: Glucose,Whole Blood 168 mg/dL (75-99)
[2021-07-23 19:56] LABS: Glucose,Whole Blood 208 mg/dL (75-99)
[2021-07-24 00:38] LABS: Glucose,Whole Blood 235 mg/dL (75-99)
[2021-07-24] MEDS: traZODone HCL 50 MG TAB PO PRN (01:19)
[2021-07-24 06:07] LABS: Glucose,Whole Blood 162 mg/dL (75-99)
[2021-07-24] MEDS: ACETAMINOPHEN TAB 500 MG TAB PO SCH ×3 (07:03→18:24)
[2021-07-24] MEDS: INSULIN ASPART (NovoLOG) 100 UNIT/ML VIAL SQ SCH ×3 (07:04→18:25)
[2021-07-24] MEDS: INSULIN DETEMIR (LEVEMIR) 100 UNIT/ML SYR SQ SCH (07:04)
[2021-07-24] MEDS: SODIUM CHLORIDE 0.9% 1,000 ML IV SCH ×3 (07:07→21:30)
--- NOTE | 2021-07-24 09:39 | CDI ---
Documentation Clarification Form Date: 07/24/2021 09:29:37 AM From: Cassie GarciaNathCONCEPCION araya, CCDS Admit Date: 07/21/2021 01:17:00 PM Patient Name: Dayna Le Visit Number: [id number] Discharge Date: ATTENTION: The Clinical Documentation Specialists (CDI) and [facility] Coding Staff appreciate your assistance in clarifying documentation. Please respond to the clarification below the line at the bottom and electronically sign. The CDI & [facility] Coding staff will review the response and follow-up if needed. Please note: Queries are made part of the Legal Health Record. If you have any questions, please contact the author of this message via ITS. Dr. Guillermo Cerda: The patient has the following documented abnormal lab values: 07/21 BUN 30, Creatinine 1.15 07/22 BUN 34, Creatinine 1.23 Additional clarification regarding the abnormal lab values is requested. History/Risk Factors per the 07/22 H/P and the 07/21 ED Note: IDDM II, Chronic relapsing pancreatitis, Hypertriglyceridemia, GERD, Hyperlipidemia, Hypertension, Chronic Low Back Pain, UTI, Bulging Discs. Clinical Indicators: Presented to the ED on 07/21 via EMS with body aches & wet cough, intermittent lower abdominal pain, intermittent burning with urination, nausea & diarrhea. Admit with Hyperkalemia, Body Aches and Cough 07/21 Lab: BUN & Creatinine as above. Na 133, K 7.2, CO2 16, GFR 57, Glucose 297, AST 48 07/21 UA: Clear, Trace Protein, 2+ glucose, Trace Esterase, WBC 7 Treatment: Telemetry, Hypoglycemia Protocol, INH Ventolin x1, IV Na Cl 2,000 mls @ 999 mls/hr q2H, IV Zofran 4 mg x1, po Keflex 250 mg x1, IV Calcium Gluconate/Na Cl 100 mls @ 400 mls x1, IV Dextrose/Water 50 ml x1, IV Insulin 10 units x1 Please clarify the following: [ ] Acute Renal Failure [ ] Chronic Renal failure, specify Stage of CKD if known [ ] Acute on Chronic Renal Failure with Stage of CKD specified [ ] Other, please specify [ ] Unable to determine (Template Last Revised: June 2020) MTDD
[2021-07-24] MEDS: traMADol 50 MG TAB PO PRN ×2 (09:46→19:45)
[2021-07-24] MEDS: CEPHALEXIN 250 MG CAP PO SCH ×4 (09:46→21:31)
[2021-07-24] MEDS: SODIUM POLYSTYRENE SULFONATE 15 GM/60 ML BOTTLE PO SCH (09:47)
[2021-07-24 11:54] LABS: Glucose,Whole Blood 265 mg/dL (75-99)
[2021-07-24 16:46] LABS: Glucose,Whole Blood 226 mg/dL (75-99)
[2021-07-24 19:16] LABS: Glucose,Whole Blood 243 mg/dL (75-99)
--- NOTE | 2021-07-24 20:33 | PN ---
PROGRESS NOTE DATE OF SERVICE: 07/23/2021 CHIEF COMPLAINT: Abdominal pain, pancreatitis, hypertriglyceridemia and hyperkalemia. HISTORY OF PRESENT ILLNESS: This lady is feeling fine except for her usual complaints of abdominal pain. She has had no palpitations, nausea, vomiting, etc. Potassium is down slightly. PHYSICAL EXAMINATION: Chest is clear. Cardiac exam is normal. Abdomen is soft, nontender. IMPRESSION: 1. Hyperkalemia. 2. Uncontrolled diabetes. 3. Chronic relapsing pancreatitis. 4. Hypertriglyceridemia. PLAN: Continue with IV fluids and Kayexalate, which has been added for her potassium. MMODL / IJN: [id number] /
--- NOTE | 2021-07-24 21:07 | PN ---
PROGRESS NOTE DATE OF SERVICE: 07/24/2021 CHIEF COMPLAINT: Hyperkalemia. HISTORY OF PRESENT ILLNESS: This lady is doing better. Potassium is coming down. She can probably go home today. PHYSICAL EXAMINATION: Her chest is clear. Cardiac exam is normal. Abdomen is soft, nontender. IMPRESSION: 1. Hyperkalemia. 2. Uncontrolled diabetes. 3. Hypertriglyceridemia. 4. Pancreatitis. PLAN: Progress activity and probably home later today. MMODL / IJN: [id number] /
[2021-07-25 05:48] LABS: Glucose,Whole Blood 185 mg/dL (75-99)
[2021-07-25] MEDS: ACETAMINOPHEN TAB 500 MG TAB PO SCH ×3 (06:24→12:20)
[2021-07-25] MEDS: SODIUM CHLORIDE 0.9% 1,000 ML IV SCH ×2 (06:25→10:55)
[2021-07-25] MEDS: INSULIN DETEMIR (LEVEMIR) 100 UNIT/ML SYR SQ SCH (06:26)
[2021-07-25] MEDS: INSULIN ASPART (NovoLOG) 100 UNIT/ML VIAL SQ SCH ×2 (06:28→12:19)
[2021-07-25] MEDS: SODIUM POLYSTYRENE SULFONATE 15 GM/60 ML BOTTLE PO SCH (08:17)
[2021-07-25] MEDS: CEPHALEXIN 250 MG CAP PO SCH ×2 (08:17→12:20)
[2021-07-25 10:45] VITALS: RESP 20
[2021-07-25 11:53] LABS: Glucose,Whole Blood 332 mg/dL (75-99)
[2021-07-25 12:16] VITALS: BP 164/100; PULSE 67; TEMP 98.2
--- NOTE | 2021-07-25 12:26 | MISC ---
MISCELLANOUS REPORT QUERY: Chronic renal failure, stage 2. MMODL / IJN: [id number] /
[2021-07-25] MEDS: traMADol 50 MG TAB PO PRN (12:31)
--- NOTE | 2021-07-25 20:09 | DS ---
DISCHARGE SUMMARY CHIEF COMPLAINT: Uncontrolled diabetes and hyperkalemia. HISTORY OF PRESENT ILLNESS AND PHYSICAL EXAMINATION: Details of this lady's history and physical can be found in the initial workup. LABORATORY STUDIES: While she was in the hospital she had laboratory studies, details of which can be found in the laboratory section of her chart. COURSE IN THE HOSPITAL: After admission she was placed on bedrest and started on intravenous fluids and insulin management. Her blood sugars came down and her potassium eventually dropped into normal range. She was doing well and it was felt that she could go home. She will go home on her usual activity, diet and medications, and she will be followed up in a day or two in the office. FINAL DIAGNOSIS: 1. Uncontrolled insulin-dependent diabetes mellitus. 2. Hyperkalemia. 3. Hypertriglyceridemia. 4. Chronic relapsing pancreatitis. 5. Obesity. 6. Noncompliance. MMJOHANL / IJAbimael: [id number] /
== END 2021-07-25 14:55 | disposition home or self-care (01) | DRG 638 ==
LOC: EC 09:46 → 3SCARD 13:17
PROVIDERS: ADMIT Family Medicine; ATTEND Family Medicine
DX: E11.65 Type 2 diabetes mellitus with hyperglycemia (principal); K86.1 Other chronic pancreatitis; N39.0 Urinary tract infection, site not specified; Z68.41 Body mass index [BMI] 40.0-44.9, adult; Z20.822 Contact with and (suspected) exposure to COVID-19; E66.9 Obesity, unspecified; M54.50 Low back pain, unspecified; I12.9 Hypertensive chronic kidney disease with stage 1 through stage 4 chronic kidney disease, or unspecified chronic kidney disease; E78.1 Pure hyperglyceridemia; N18.2 Chronic kidney disease, stage 2 (mild); Z98.51 Tubal ligation status; E78.5 Hyperlipidemia, unspecified; E87.5 Hyperkalemia; Z79.4 Long term (current) use of insulin; Z87.891 Personal history of nicotine dependence; Z91.19 Patient's noncompliance with other medical treatment and regimen; Z88.1 Allergy status to other antibiotic agents
CPT/HCPCS: 36415; 71046; 80048; 80051; 80053; 81001; 83690; 83880; 84132; 85025; 87636; 94640; 96361; 96365; 96375; 96376; 99285

== ENCOUNTER 2021-07-28 12:19 | Emergency (ER) | payer MEDICARE ==
[2021-07-28] MEDS ORDERED: ACETAMINOPHEN TAB 325 MG TAB PO STA (13:02)
--- NOTE | 2021-07-28 13:16 | ED ---
General Adult HPI - General Chief complaint: Abdominal Pain Stated complaint: pain all over Time Seen by Provider: 07/28/21 12:28 Source: patient, EMS Mode of arrival: EMS Limitations: no limitations - History of Present Illness Initial comments: This 50-year-old female with a past medical history of GERD, diabetes mellitus, hypertension and hyperlipidemia presents to the emergency department complaining of generalized body aches and cough that began last night. Patient states she is having a little bit of mucus production with her cough but denies any fever, blood or yellowish/green mucus production. Patient states she does have a little bit of generalized abdominal discomfort but states there is no one specific spot that hurts worse than the other. Patient denies taking anything to help relieve her body aches. Patient states her pain is 8/10. Patient denies any chest pain, shortness of breath, trouble breathing, nasal congestion, headache, lightheadedness, dizziness, change in vision, change in bowel or bladder, change in appetite, nausea, vomiting. - Related Data Home Medications Medication Instructions Recorded Confirmed Atorvastatin [Lipitor] 80 mg PO HS 06/25/19 07/28/21 lisinopriL 40 mg PO DAILY 09/24/20 07/28/21 metFORMIN HCL [Glucophage] 500 mg PO DAILY 09/24/20 07/28/21 traZODone HCL 50 - 100 mg PO HS PRN 01/11/21 07/28/21 Ergocalciferol (Vitamin D2) 1,250 mcg PO TU 03/03/21 07/28/21 [Drisdol (50,000 Iu)] Esomeprazole Magnesium [NexIUM] 20 mg PO DAILY 03/28/21 07/28/21 INSULIN ASPART (NovoLOG) [NovoLOG 18 unit SQ AC-TID 04/26/21 07/28/21 (formulary)] Albuterol Inhaler [Ventolin Hfa 2 puff INHALATION RT-QID PRN 07/28/21 07/28/21 Inhaler] Previous Rx's Medication Instructions Recorded Fenofibrate [Lofibra] 160 mg PO DAILY #30 tab 03/23/19 hydrOXYzine HCL [Atarax] 25 mg PO TID PRN #15 tab 06/04/21 Insulin Detemir (Levemir) [Levemir] 56 unit SQ DAILY@0700 30 Days #2 07/11/21 dispenser Allergies Allergy/AdvReac Type Severity Reaction Status Date / Time levofloxacin [From Levaquin] Allergy Rash/Hives Verified 07/28/21 16:23 Review of Systems ROS Statement: Those systems with pertinent positive or pertinent negative responses have been documented in the HPI. ROS Other: All systems not noted in ROS Statement are negative. Past Medical History Past Medical History: Diabetes Mellitus, GERD/Reflux, Hyperlipidemia, Hypertension, Syncope Additional Past Medical History / Comment(s): Pancreatitis, hypertriglyceridemia, elevated lipase, IDDM type II, UTI, chronic low back pain, bulging discs, dental abscesses in past. History of Any Multi-Drug Resistant Organisms: None Reported Past Surgical History: Tubal Ligation Additional Past Surgical History / Comment(s): Age 7 had VSD repair Past Anesthesia/Blood Transfusion Reactions: No Reported Reaction Past Psychological History: No Psychological Hx Reported Smoking Status: Former smoker - Past Family History Mother Family Medical History: No Reported History Additional Family Medical History / Comment(s): Mother was healthy. She is , pt cannot recall cause of . Father Family Medical History: Pneumonia Additional Family Medical History / Comment(s): Father at the age of 67yrs from pneumonia General Exam - General Exam Comments Initial Comments: This 50-year-old female presents emergency Department with generalized body aches and cough 2 days. Chest x-ray without any acute abnormalities. Due to patient having hyperkalemia on 07/21 I did redraw labs. Potassium came back at 5.3 but was hemolyzed. Glucose 427 and patient states she does take her directed long and short acting medications for her diabetes, however she states she didn't take it at this morning. Patient without any nitrites, blood or leukocyte esterase and urine. COVID-19, informs A/B both negative. I did give patient fluids and went to reevaluate after fluids given and to redraw glucose, however patient did leave the hospital before being able to redraw glucose. Before patient left I did instruct her to take glucose as directed at home and to follow up with her primary care provider on Saturday morning. Patient did melvin montserrat beckman stated she would call her primary care provider on Saturday. Limitations: no limitations General appearance: alert, in no apparent distress Head exam: Present: atraumatic, normocephalic, normal inspection Eye exam: Present: normal appearance, PERRL, EOMI. Absent: scleral icterus, conjunctival injection, periorbital swelling Pupils: Present: normal accommodation ENT exam: Present: normal exam, mucous membranes moist Neck exam: Present: normal inspection. Absent: tenderness, meningismus, lymphadenopathy Respiratory exam: Present: normal lung sounds bilaterally. Absent: respiratory distress, wheezes, rales, rhonchi, stridor Cardiovascular Exam: Present: regular rate, normal rhythm, normal heart sounds. Absent: systolic murmur, diastolic murmur, rubs, gallop, clicks GI/Abdominal exam: Present: soft, tenderness (Generalized abdominal discomfort and patient states the pain is 2/10 in all quadrants with deep palpation), normal bowel sounds. Absent: distended, guarding, rebound, rigid Extremities exam: Present: normal inspection, full ROM, normal capillary refill. Absent: tenderness, pedal edema, joint swelling, calf tenderness Back exam: Present: normal inspection, full ROM. Absent: CVA tenderness (R), CVA tenderness (L), paraspinal tenderness, vertebral tenderness Neurological exam: Present: alert, oriented X3, CN II-XII intact Psychiatric exam: Present: normal affect, normal mood Skin exam: Present: warm, dry, intact, normal color. Absent: rash Course Vital Signs 07/28/21 07/28/21 12:23 16:17 Temperature 98.8 F 98.2 F Pulse Rate 68 64 Respiratory 18 16 Rate Blood Pressure 160/70 139/64 O2 Sat by Pulse 97 98 Oximetry Medical Decision Making - Medical Decision Making This 50-year-old female presents emergency Department with generalized body aches and cough that began last night. Chest x-ray without any acute abnormalities. COVID-19 and influenza A/B-. Due to patient having hyperkalemia on 07/21 I did redraw labs.Potassium 5.3 and hemolyzed, glucose 427. Patient is currently prescribed long and short acting hyperglycemic medications and states she did not take her medication prior to coming to the emergency department today. On reevaluation, patient states her body aches had subsided and she states she feels much better after getting Tylenol. I did give patient fluids and went to reassess and get another glucose level, however the patient did le ave the hospital. Prior to patient leaving the hospital I informed her that her glucose was high and that we are going to give fluids for this, instructed her to follow up with her primary care provider on Saturday morning and patient verbally stated she would call on Saturday to schedule an appointment. I instructed patient to take glucose when she gets home and to use her insulin and hyperglycemic medications as directed. Strict return precautions were discussed. Patient verbally agreed to plan before leaving, however we were unable to obtain a new glucose level prior to her leaving. Patient likely with upper respiratory infection. Patient sent home in stable condition. Case dis cussed and he felt by attending, . - Lab Data Result diagrams: 07/28/21 13:15 07/28/21 13:15 Lab Results 07/28/21 07/28/21 07/28/21 Range/Units 13:15 13:15 13:15 WBC (3.8-10.6) k/uL RBC (3.80-5.40) m/uL Hgb (11.4-16.0) gm/dL Hct (34.0-46.0) % MCV (80.0-100.0) fL MCH (25.0-35.0) pg MCHC (31.0-37.0) g/dL RDW (11.5-15.5) % Plt Count (150-450) k/uL MPV Neutrophils % % Lymphocytes % % Monocytes % % Eosinophils % % Basophils % % Neutrophils # (1.3-7.7) k/uL Lymphocytes # (1.0-4.8) k/uL Monocytes # (0-1.0) k/uL Eosinophils # (0-0.7) k/uL Basophils # (0-0.2) k/uL Hypochromasia Anisocytosis Microcytosis PT (9.0-12.0) sec INR (<1.2) APTT (22.0-30.0) sec Sodium (137-145) mmol/L Potassium (3.5-5.1) mmol/L Chloride (98-107) mmol/L Carbon Dioxide (22-30) mmol/L Anion Gap mmol/L BUN (7-17) mg/dL Creatinine (0.52-1.04) mg/dL Est GFR (CKD-EPI)AfAm (>60 ml/min/1.73 sqM) Est GFR (CKD-EPI)NonAf (>60 ml/min/1.73 sqM) Glucose (74-99) mg/dL Calcium (8.4-10.2) mg/dL Total Bilirubin (0.2-1.3) mg/dL AST (14-36) U/L ALT (4-34) U/L Alkaline Phosphatase (38-126) U/L Total Protein (6.3-8.2) g/dL Albumin (3.5-5.0) g/dL Amylase (30-110) U/L Lipase (23-300) U/L Urine Color Light Yellow Urine Appearance Clear (Clear) Urine pH 6.0 (5.0-8.0) Ur Specific Jean 1.021 (1.001-1.035) Urine Protein Negative (Negative) Urine Glucose (UA) 4+ H (Negative) Urine Ketones Negative (Negative) Urine Blood Negative (Negative) Urine Nitrite Negative (Negative) Urine Bilirubin Negative (Negative) Urine Urobilinogen <2.0 (<2.0) mg/dL Ur Leukocyte Esterase Negative (Negative) Coronavirus (PCR) Not Detected (Not Detectd) Influenza Type A RNA Not Detected (Not Detectd) Influenza Type B (PCR) Not Detected (Not Detectd) 07/28/21 07/28/21 07/28/21 Range/Units 13:15 13:15 13:15 WBC 8.6 (3.8-10.6) k/uL RBC 3.62 L (3.80-5.40) m/uL Hgb 9.3 L (11.4-16.0) gm/dL Hct 30.7 L (34.0-46.0) % MCV 84.9 (80.0-100.0) fL MCH 25.6 (25.0-35.0) pg MCHC 30.1 L (31.0-37.0) g/dL RDW 18.3 H (11.5-15.5) % Plt Count 643 H (150-450) k/uL MPV 7.3 Neutrophils % 72 % Lymphocytes % 19 % Monocytes % 4 % Eosinophils % 3 % Basophils % 0 % Neutrophils # 6.2 (1.3-7.7) k/uL Lymphocytes # 1.6 (1.0-4.8) k/uL Monocytes # 0.4 (0-1.0) k/uL Eosinophils # 0.3 (0-0.7) k/uL Basophils # 0.0 (0-0.2) k/uL Hypochromasia Marked Anisocytosis Slight Microcytosis Slight PT 10.1 (9.0-12.0) sec INR 0.9 (<1.2) APTT 22.9 (22.0-30.0) sec Sodium 136 L (137-145) mmol/L Potassium 5.3 H (3.5-5.1) mmol/L Chloride 106 (98-107) mmol/L Carbon Dioxide 19 L (22-30) mmol/L Anion Gap 11 mmol/L BUN 17 (7-17) mg/dL Creatinine 0.85 (0.52-1.04) mg/dL Est GFR (CKD-EPI)AfAm >90 (>60 ml/min/1.73 sqM) Est GFR (CKD-EPI)NonAf 82 (>60 ml/min/1.73 sqM) Glucose 427 H (74-99) mg/dL Calcium 8.3 L (8.4-10.2) mg/dL Total Bilirubin 0.7 (0.2-1.3) mg/dL AST 65 H (14-36) U/L ALT 26 (4-34) U/L Alkaline Phosphatase 87 (38-126) U/L Total Protein 6.7 (6.3-8.2) g/dL Albumin 3.6 (3.5-5.0) g/dL Amylase 41 (30-110) U/L Lipase 219 (23-300) U/L Urine Color Urine Appearance (Clear) Urine pH (5.0-8.0) Ur Specific Jean (1.001-1.035) Urine Protein (Negative) Urine Glucose (UA) (Negative) Urine Ketones (Negative) Urine Blood (Negative) Urine Nitrite (Negative) Urine Bilirubin (Negative) Urine Urobilinogen (<2.0) mg/dL Ur Leukocyte Esterase (Negative) Coronavirus (PCR) (Not Detectd) Influenza Type A RNA (Not Detectd) Influenza Type B (PCR) (Not Detectd) Disposition Clinical Impression: Upper respiratory infection Disposition: HOME SELF-CARE Condition: Stable Additional Instructions: Please follow-up with your primary care provider on Saturday morning of next week. Return to the emergency department if any symptoms return or if any new, worsening, or concerning symptoms arise. Is patient prescribed a controlled substance at d/c from ED?: No Referrals: Guillermo Cerda MD [Primary Care Provider] - 1-2 days Time of Disposition: 16:48
--- NOTE | 2021-07-28 13:40 | XR ---
EXAMINATION TYPE: XR chest 2V DATE OF EXAM: 07/28/2021 COMPARISON: Chest x-ray 07/21/2021 HISTORY: Cough and body aches TECHNIQUE: Frontal and lateral views of the chest are obtained. FINDINGS: There is no focal air space opacity, pleural effusion, or pneumothorax seen. The cardiac silhouette size is within normal limits. Linear area of probable scarring in the left midlung is stab le. Patient is post median sternotomy. The osseous structures are intact. IMPRESSION: No acute cardiopulmonary process.
[2021-07-28 14:15] LABS: Anisocytosis Slight; Basophils % (A) 0 %; Eosinophils # (A) 0.3 k/uL (0-0.7); Eosinophils % (A) 3 %; HCT 30.7 % (34.0-46.0); HGB 9.3 gm/dL (11.4-16.0); Hypochromasia Marked; Lymphocytes # (A) 1.6 k/uL (1.0-4.8); Lymphocytes % (A) 19 %; MCH 25.6 pg (25.0-35.0); MCHC 30.1 g/dL (31.0-37.0); MCV 84.9 fL (80.0-100.0); Mean Platelet Volume 7.3; Microcytosis Slight; Monocytes # (A) 0.4 k/uL (0-1.0); Monocytes % (A) 4 %; Neutrophils # (A) 6.2 k/uL (1.3-7.7); Neutrophils % (A) 72 %; Platelet Count 643 k/uL (150-450); RBC 3.62 m/uL (3.80-5.40); RDW 18.3 % (11.5-15.5); WBC 8.6 k/uL (3.8-10.6)
[2021-07-28 14:19] LABS: INR 0.9 (<1.2); Partial Thromboplastin Time 22.9 sec (22.0-30.0); Prothrombin Time 10.1 sec (9.0-12.0)
[2021-07-28 14:20] LABS: ALT 26 U/L (4-34); AST 65 U/L (14-36); African American GFR (CKD) >90 (>60 ml/min/1.73 sqM); Albumin 3.6 g/dL (3.5-5.0); Alkaline Phosphatase 87 U/L (38-126); Amylase 41 U/L (30-110); Anion Gap 11 mmol/L; Blood Urea Nitrogen 17 mg/dL (7-17); Calcium 8.3 mg/dL (8.4-10.2); Carbon Dioxide 19 mmol/L (22-30); Chloride 106 mmol/L (98-107); Glucose 427 mg/dL (74-99); Lipase 219 U/L (23-300); Non-African American GFR(CKD) 82 (>60 ml/min/1.73 sqM); Sodium 136 mmol/L (137-145); Total Bilirubin 0.7 mg/dL (0.2-1.3); Total Protein 6.7 g/dL (6.3-8.2)
[2021-07-28 14:29] LABS: Potassium 5.3 mmol/L (3.5-5.1)
[2021-07-28 15:11] LABS: Appearance,Urine Clear (Clear); Bilirubin,Urine Negative (Negative); Blood,Urine Negative (Negative); Color,Urine Light Yellow; Glucose,Urine (UA) 4+ (Negative); Ketones,Urine Negative (Negative); Leukocyte Esterase,Urine Negative (Negative); Nitrite,Urine Negative (Negative); Protein,Urine Negative (Negative); Specific Gravity,Urine 1.021 (1.001-1.035); Urobilinogen,Urine <2.0 mg/dL (<2.0)
[2021-07-28] MEDS ORDERED: SODIUM CHLORIDE 0.9% 500 ML 500 ML IV ONE (15:30)
[2021-07-28 16:20] VITALS: BP 139/64; PULSE 64; RESP 16; TEMP 98.2
== END 2021-07-28 16:57 | disposition home or self-care (01) ==
LOC: EC 12:19
DX: J06.9 Acute upper respiratory infection, unspecified (principal); E11.65 Type 2 diabetes mellitus with hyperglycemia; K21.9 Gastro-esophageal reflux disease without esophagitis; E78.5 Hyperlipidemia, unspecified; I10 Essential (primary) hypertension; Z20.822 Contact with and (suspected) exposure to COVID-19; Z79.84 Long term (current) use of oral hypoglycemic drugs; Z79.4 Long term (current) use of insulin; Z88.1 Allergy status to other antibiotic agents; Z87.440 Personal history of urinary (tract) infections; Z98.51 Tubal ligation status; Z87.891 Personal history of nicotine dependence
CPT/HCPCS: 36415; 71046; 80053; 81003; 82150; 83690; 85025; 85610; 85730; 87502; 87635; 96360; 99284

== ENCOUNTER 2021-07-30 18:00 | Emergency (ER) | payer MEDICARE ==
[2021-07-30 19:15] VITALS: TEMP 97.8
[2021-07-30] MEDS ORDERED: KETOROLAC 15 MG/ML 1 ML VIAL IM STA (20:25)
[2021-07-30] MEDS ORDERED: BENZOCAINE/MENTHOL LOZENG 1 EACH LOZENGE MUCOUS MEM STA (20:25)
--- NOTE | 2021-07-30 20:32 | XR ---
EXAMINATION TYPE: XR chest 2V DATE OF EXAM: 07/30/2021 COMPARISON: 07/28/2021 HISTORY: Respiratory difficulty TECHNIQUE: FINDINGS: Heart and mediastinum are normal. Lungs are clear. Diaphragm is normal. Bony thorax appears normal. IMPRESSION: Normal chest. No change.
--- NOTE | 2021-07-30 20:36 | XR ---
EXAMINATION TYPE: XR KUB DATE OF EXAM: 07/30/2021 COMPARISON: 06/04/2021 HISTORY: Abdominal pain TECHNIQUE: 2 views FINDINGS: 2 views upright were obtained. There are clips from tubal ligation. No sign of intestinal o bstruction or pneumoperitoneum. Fecal pattern is normal. Lung bases show some minimal pleural reactio n at the left costophrenic angle. IMPRESSION: Nonacute bowel gas pattern. Possible mild pleural reaction lateral left lung base.
[2021-07-30 20:50] LABS: Appearance,Urine Clear (Clear); Bilirubin,Urine Negative (Negative); Blood,Urine Negative (Negative); Color,Urine Light Yellow; Glucose,Urine (UA) 4+ (Negative); Ketones,Urine Negative (Negative); Leukocyte Esterase,Urine Negative (Negative); Mucus,Urine Rare /hpf; Nitrite,Urine Negative (Negative); Protein,Urine 1+ (Negative); RBC,Urine <1 /hpf (0-5); Specific Gravity,Urine 1.019 (1.001-1.035); Squamous Epithelial Cell,Urine <1 /hpf (0-4); Urobilinogen,Urine <2.0 mg/dL (<2.0); WBC,Urine 3 /hpf (0-5)
--- NOTE | 2021-07-30 21:08 | XR ---
EXAMINATION TYPE: XR shoulder complete LT DATE OF EXAM: 07/30/2021 COMPARISON: NONE HISTORY: Shoulder pain TECHNIQUE: 2 views FINDINGS: There is no sign of fracture nor dislocation. AC joint is intact. IMPRESSION: Negative left shoulder exam
[2021-07-30 21:29] LABS: Anisocytosis Slight; Basophils # (A) 0.1 k/uL (0-0.2); Basophils % (A) 1 %; Eosinophils # (A) 0.3 k/uL (0-0.7); Eosinophils % (A) 3 %; HCT 30.7 % (34.0-46.0); HGB 9.3 gm/dL (11.4-16.0); Hypochromasia Marked; Lymphocytes # (A) 2.1 k/uL (1.0-4.8); Lymphocytes % (A) 20 %; MCH 25.5 pg (25.0-35.0); MCHC 30.4 g/dL (31.0-37.0); MCV 83.9 fL (80.0-100.0); Mean Platelet Volume 7.1; Microcytosis Slight; Monocytes # (A) 0.4 k/uL (0-1.0); Monocytes % (A) 4 %; Neutrophils # (A) 7.5 k/uL (1.3-7.7); Neutrophils % (A) 71 %; Platelet Count 665 k/uL (150-450); RBC 3.66 m/uL (3.80-5.40); WBC 10.5 k/uL (3.8-10.6)
[2021-07-30 21:37] LABS: Calcium 8.8 mg/dL (8.4-10.2); Potassium 4.4 mmol/L (3.5-5.1)
[2021-07-30] MEDS ORDERED: INSULIN ASPART (NovoLOG) 100 UNIT/ML VIAL SQ ONE ×2 (22:13)
--- NOTE | 2021-07-30 22:32 | ED ---
URI HPI - General Chief Complaint: Upper Respiratory Infection Stated Complaint: Abd Pain Time Seen by Provider: 07/30/21 20:08 Source: patient Mode of arrival: ambulatory Limitations: no limitations - History of Present Illness Initial Comments: Patient is a 50-year-old female presents with the chief complaint of generalized weakness, body aches, and dry cough. Patient states symptoms started yesterday. Patient also reports left shoulder pain in the back of her shoulder that started this morning. Patient thinks she may have slept on it wrong. She denies injury. Patient denies fever, chills, headache, congestion, shortness of breath, chest pain, abdominal pain, nausea, vomiting, diarrhea, and burning urination. No recent sick contacts. - Related Data Home Medications Medication Instructions Recorded Confirmed Atorvastatin [Lipitor] 80 mg PO HS 06/25/19 07/28/21 lisinopriL 40 mg PO DAILY 09/24/20 07/28/21 metFORMIN HCL [Glucophage] 500 mg PO DAILY 09/24/20 07/28/21 traZODone HCL 50 - 100 mg PO HS PRN 01/11/21 07/28/21 Ergocalciferol (Vitamin D2) 1,250 mcg PO TU 03/03/21 07/28/21 [Drisdol (50,000 Iu)] Esomeprazole Magnesium [NexIUM] 20 mg PO DAILY 03/28/21 07/28/21 INSULIN ASPART (NovoLOG) [NovoLOG 18 unit SQ AC-TID 04/26/21 07/28/21 (formulary)] Albuterol Inhaler [Ventolin Hfa 2 puff INHALATION RT-QID PRN 07/28/21 07/28/21 Inhaler] Previous Rx's Medication Instructions Recorded Fenofibrate [Lofibra] 160 mg PO DAILY #30 tab 03/23/19 hydrOXYzine HCL [Atarax] 25 mg PO TID PRN #15 tab 06/04/21 Insulin Detemir (Levemir) [Levemir] 56 unit SQ DAILY@0700 30 Days #2 07/11/21 dispenser Allergies Allergy/AdvReac Type Severity Reaction Status Date / Time levofloxacin [From Levaquin] Allergy Rash/Hives Verified 07/30/21 19:15 Review of Systems ROS Statement: Those systems with pertinent positive or pertinent negative responses have been documented in the HPI. ROS Other: All systems not noted in ROS Statement are negative. Past Medical History Past Medical History: Diabetes Mellitus, GERD/Reflux, Hyperlipidemia, Hypertension, Syncope Additional Past Medical History / Comment(s): Pancreatitis, hypertriglyceridemia, elevated lipase, IDDM type II, UTI, chronic low back pain, bulging discs, dental abscesses in past. History of Any Multi-Drug Resistant Organisms: None Reported Past Surgical History: Tubal Ligation Additional Past Surgical History / Comment(s): Age 7 had VSD repair Past Anesthesia/Blood Transfusion Reactions: No Reported Reaction Past Psychological History: No Psychological Hx Reported Smoking Status: Former smoker Past Alcohol Use History: None Reported Past Drug Use History: None Reported - Past Family History Mother Family Medical History: No Reported History Additional Family Medical History / Comment(s): Mother was healthy. She is , pt cannot recall cause of . Father Family Medical History: Pneumonia Additional Family Medical History / Comment(s): Father at the age of 67yrs from pneumonia General Exam Limitations: no limitations General appearance: alert, in no apparent distress Head exam: Present: atraumatic, normocephalic, normal inspection Eye exam: Present: normal appearance, PERRL, EOMI. Absent: scleral icterus, conjunctival injection, periorbital swelling ENT exam: Present: normal oropharynx Neck exam: Present: normal inspection, full ROM Respiratory exam: Present: normal lung sounds bilaterally. Absent: respiratory distress, wheezes, rales, rhonchi, stridor Cardiovascular Exam: Present: regular rate, normal rhythm, normal heart sounds. Absent: systolic murmur, diastolic murmur, rubs, gallop, clicks GI/Abdominal exam: Present: soft, normal bowel sounds. Absent: distended, tenderness, guarding, rebound, rigid Neurological exam: Present: alert, oriented X3, CN II-XII intact Psychiatric exam: Present: normal affect, normal mood Course Vital Signs 07/30/21 19:12 Temperature 97.8 F Pulse Rate 70 Respiratory 18 Rate Blood Pressure 135/61 O2 Sat by Pulse 97 Oximetry Medical Decision Making - Medical Decision Making This is a 50-year-old female who presents with generalized weakness, body aches, and dry cough times one day. Thorough history and examination were performed. Patient is afebrile. No chest pain or shortness of breath. Lungs are clear to auscultation bilaterally. Laboratory studies reveal hyperglycemia at 339. There are ketones and glucose in the urine. There is no evidence of diabetic ketoacidosis. COVID-19 and influenza A/B are not detected. Patient has pain with palpation of the left acromion process region. She has full range of motion however pain is elicited with shoulder flexion. Left shoulder x-ray is unremarkable. Patient likely experiencing illness of viral etiology. She was given Toradol for shoulder pain and Cepacol lozenges for cough. Patient will be discharged with instruction to follow up with her primary care provider for her shoulder pain and better diabetes control. She does note that she just started insulin last month and she sees her primary care on . She verbalizes understanding and agrees with this plan. Dr. Patrick is my attending. - Lab Data Result diagrams: 07/30/21 21:08 07/30/21 21:08 Lab Results 07/30/21 07/30/21 07/30/21 Range/Units 19:21 20:24 20:26 WBC (3.8-10.6) k/uL RBC (3.80-5.40) m/uL Hgb (11.4-16.0) gm/dL Hct (34.0-46.0) % MCV (80.0-100.0) fL MCH (25.0-35.0) pg MCHC (31.0-37.0) g/dL RDW (11.5-15.5) % Plt Count (150-450) k/uL MPV Neutrophils % % Lymphocytes % % Monocytes % % Eosinophils % % Basophils % % Neutrophils # (1.3-7.7) k/uL Lymphocytes # (1.0-4.8) k/uL Monocytes # (0-1.0) k/uL Eosinophils # (0-0.7) k/uL Basophils # (0-0.2) k/uL Hypochromasia Anisocytosis Microcytosis Sodium (137-145) mmol/L Potassium (3.5-5.1) mmol/L Chloride (98-107) mmol/L Carbon Dioxide (22-30) mmol/L Anion Gap mmol/L BUN (7-17) mg/dL Creatinine (0.52-1.04) mg/dL Est GFR (CKD-EPI)AfAm (>60 ml/min/1.73 sqM) Est GFR (CKD-EPI)NonAf (>60 ml/min/1.73 sqM) Glucose (74-99) mg/dL POC Glucose (mg/dL) (75-99) mg/dL POC Glu Patient Transportation Driver ID Calcium (8.4-10.2) mg/dL Troponin I <0.012 (0.000-0.034) ng/mL Amylase (30-110) U/L Lipase (23-300) U/L Urine Color Light Yellow Urine Appearance Clear (Clear) Urine pH 6.0 (5.0-8.0) Ur Specific [place] 1.019 (1.001-1.035) Urine Protein 1+ H (Negative) Urine Glucose (UA) 4+ H (Negative) Urine Ketones Negative (Negative) Urine Blood Negative (Negative) Urine Nitrite Negative (Negative) Urine Bilirubin Negative (Negative) Urine Urobilinogen <2.0 (<2.0) mg/dL Ur Leukocyte Esterase Negative (Negative) Urine RBC <1 (0-5) /hpf Urine WBC 3 (0-5) /hpf Ur Squamous Epith Cells <1 (0-4) /hpf Urine Mucus Rare H (None) /hpf Influenza Type A (PCR) Not Detected (Not Detectd) Influenza Type B (PCR) Not Detected (Not Detectd) RSV (PCR) Not Detected (Not Detectd) SARS-CoV-2 (PCR) Not Detected (Not Detectd) 07/30/21 07/30/21 07/30/21 Range/Units 21:08 21:08 23:04 WBC 10.5 (3.8-10.6) k/uL RBC 3.66 L (3.80-5.40) m/uL Hgb 9.3 L (11.4-16.0) gm/dL Hct 30.7 L (34.0-46.0) % MCV 83.9 (80.0-100.0) fL MCH 25.5 (25.0-35.0) pg MCHC 30.4 L (31.0-37.0) g/dL RDW 18.0 H (11.5-15.5) % Plt Count 665 H (150-450) k/uL MPV 7.1 Neutrophils % 71 % Lymphocytes % 20 % Monocytes % 4 % Eosinophils % 3 % Basophils % 1 % Neutrophils # 7.5 (1.3-7.7) k/uL Lymphocytes # 2.1 (1.0-4.8) k/uL Monocytes # 0.4 (0-1.0) k/uL Eosinophils # 0.3 (0-0.7) k/uL Basophils # 0.1 (0-0.2) k/uL Hypochromasia Marked Anisocytosis Slight Microcytosis Slight Sodium 137 (137-145) mmol/L Potassium 4.4 (3.5-5.1) mmol/L Chloride 106 (98-107) mmol/L Carbon Dioxide 22 (22-30) mmol/L Anion Gap 9 mmol/L BUN 21 H (7-17) mg/dL Creatinine 1.03 (0.52-1.04) mg/dL Est GFR (CKD-EPI)AfAm 74 (>60 ml/min/1.73 sqM) Est GFR (CKD-EPI)NonAf 65 (>60 ml/min/1.73 sqM) Glucose 339 H (74-99) mg/dL POC Glucose (mg/dL) 408 H (75-99) mg/dL POC Glu Patient Transportation Driver ID Maye Mota Calcium 8.8 (8.4-10.2) mg/dL Troponin I (0.000-0.034) ng/mL Amylase 38 (30-110) U/L Lipase 284 (23-300) U/L Urine Color Urine Appearance (Clear) Urine pH (5.0-8.0) Ur Specific [place] (1.001-1.035) Urine Protein (Negative) Urine Glucose (UA) (Negative) Urine Ketones (Negative) Urine Blood (Negative) Urine Nitrite (Negative) Urine Bilirubin (Negative) Urine Urobilinogen (<2.0) mg/dL Ur Leukocyte Esterase (Negative) Urine RBC (0-5) /hpf Urine WBC (0-5) /hpf Ur Squamous Epith Cells (0-4) /hpf Urine Mucus (None) /hpf Influenza Type A (PCR) (Not Detectd) Influenza Type B (PCR) (Not Detectd) RSV (PCR) (Not Detectd) SARS-CoV-2 (PCR) (Not Detectd) Disposition Clinical Impression: Cough, Body aches, Generalized weakness, Hyperglycemia due to type 2 diabetes mellitus Disposition: HOME SELF-CARE Condition: Poor Instructions (If sedation given, give patient instructions): Upper Respiratory Infection (ED), Diabetes and Exercise (ED) Additional Instructions: Take Motrin as needed for body aches. Follow-up with her primary care provider for your shoulder pain and better management of diabetes. Continue to monitor her sugar home. Return to the emergency department if you experience new, concerning, or worsening symptoms. Is patient prescribed a controlled substance at d/c from ED?: No Referrals: Guillermo Cerda MD [Primary Care Provider] - 1-2 days Time of Disposition: 23:17
[2021-07-30 23:05] LABS: Glucose,Whole Blood 408 mg/dL (75-99)
[2021-07-30 23:45] VITALS: BP 148/75; PULSE 68; RESP 16
== END 2021-07-30 23:45 | disposition home or self-care (01) ==
LOC: EC 18:00
DX: R05.9 Cough, unspecified (principal); E11.65 Type 2 diabetes mellitus with hyperglycemia; I10 Essential (primary) hypertension; K21.9 Gastro-esophageal reflux disease without esophagitis; Z79.83 Long term (current) use of bisphosphonates; Z87.891 Personal history of nicotine dependence; Z20.822 Contact with and (suspected) exposure to COVID-19; Z88.1 Allergy status to other antibiotic agents
CPT/HCPCS: 36415; 93005; 80048; 82150; 83690; 84484; 85025; 81001; 87636; 73030; 71046; 74018; 99285; 96372; J1885

== ENCOUNTER 2021-08-01 12:47 | Emergency (ER) | payer MEDICARE ==
[2021-08-01 13:15] VITALS: BP 135/68; PULSE 83; RESP 20; TEMP 101
--- NOTE | 2021-08-01 14:01 | XR ---
EXAMINATION TYPE: XR chest 2V DATE OF EXAM: 08/01/2021 COMPARISON: Chest x-ray 2 days ago. HISTORY: Cough and fever. TECHNIQUE: Frontal and lateral views of the chest are obtained. FINDINGS: Central increased markings bilaterally on current study. There is no suspicious peripheral focal air space opacity, pleural effusion, or pneumothorax seen. The cardiac silhouette size is stab le and mildly enlarged. Overlying Sternal wires redemonstrated. The osseous structures are intact. IMPRESSION: Mild cardiomegaly with central perihilar increased markings suggesting mild edema. Corre late for CHF exacerbation.
[2021-08-01] MEDS ORDERED: ACETAMINOPHEN TAB 500 MG TAB PO STA (20:27)
--- NOTE | 2021-08-01 20:29 | ED ---
General Adult HPI - General Chief complaint: Upper Respiratory Infection Stated complaint: Weakness,Body aches Time Seen by Provider: 08/01/21 20:03 Source: patient, RN notes reviewed Mode of arrival: wheelchair Limitations: physical limitation - History of Present Illness Initial comments: 50-year-old female presents to the emergency department for evaluation of fever, cough, and body aches 2-3 days. Also complains of worsening fatigue. States she took Motrin earlier this morning with some improvement. Influenza and Covid vaccines are up-to-date. States she does feel somewhat short of breath with strong coughing episodes. Has not been seen by her PCP for these complaints. Denies headache, dizziness, blurry vision, chest pain, difficulty breathing, abdominal pain, appetite changes, nausea, vomiting, diarrhea, dysuria, or hematuria. - Related Data Home Medications Medication Instructions Recorded Confirmed Atorvastatin [Lipitor] 80 mg PO HS 06/25/19 08/01/21 lisinopriL 40 mg PO DAILY 09/24/20 08/01/21 metFORMIN HCL [Glucophage] 500 mg PO DAILY 09/24/20 08/01/21 traZODone HCL 50 - 100 mg PO HS PRN 01/11/21 08/01/21 Ergocalciferol (Vitamin D2) 1,250 mcg PO TU 03/03/21 08/01/21 [Drisdol (50,000 Iu)] Esomeprazole Magnesium [NexIUM] 20 mg PO DAILY 03/28/21 08/01/21 INSULIN ASPART (NovoLOG) [NovoLOG 18 unit SQ AC-TID 04/26/21 08/01/21 (formulary)] Albuterol Inhaler [Ventolin Hfa 2 puff INHALATION RT-QID PRN 07/28/21 08/01/21 Inhaler] Previous Rx's Medication Instructions Recorded Fenofibrate [Lofibra] 160 mg PO DAILY #30 tab 03/23/19 hydrOXYzine HCL [Atarax] 25 mg PO TID PRN #15 tab 06/04/21 Insulin Detemir (Levemir) [Levemir] 56 unit SQ DAILY@0700 30 Days #2 07/11/21 dispenser Azithromycin 250 mg PO DAILY 4 Days #1 tab 08/01/21 Benzonatate [Tessalon Perles] 100 mg PO TID PRN #15 capsule 08/01/21 predniSONE 50 mg PO DAILY #4 tab 08/01/21 Allergies Allergy/AdvReac Type Severity Reaction Status Date / Time levofloxacin [From Levaquin] Allergy Rash/Hives Verified 08/01/21 20:52 Review of Systems ROS Statement: Those systems with pertinent positive or pertinent negative responses have been documented in the HPI. ROS Other: All systems not noted in ROS Statement are negative. Past Medical History Past Medical History: Diabetes Mellitus, GERD/Reflux, Hyperlipidemia, Hypertension, Syncope Additional Past Medical History / Comment(s): Pancreatitis, hypertriglyceridemia, elevated lipase, IDDM type II, UTI, chronic low back pain, bulging discs, dental abscesses in past. History of Any Multi-Drug Resistant Organisms: None Reported Past Surgical History: Tubal Ligation Additional Past Surgical History / Comment(s): Age 7 had VSD repair Past Anesthesia/Blood Transfusion Reactions: No Reported Reaction Past Psychological History: No Psychological Hx Reported Smoking Status: Former smoker Past Alcohol Use History: None Reported Past Drug Use History: None Reported - Past Family History Mother Family Medical History: No Reported History Additional Family Medical History / Comment(s): Mother was healthy. She is , pt cannot recall cause of . Father Family Medical History: Pneumonia Additional Family Medical History / Comment(s): Father at the age of 67yrs from pneumonia General Exam Limitations: physical limitation General appearance: alert, in no apparent distress (Well-developed, well- nourished female in no acute distress. Initial temperature 101, pulse 83, respirations 20, blood pressure 135/68, pulse ox 96% on room air.) Head exam: Present: atraumatic, normocephalic, normal inspection Eye exam: Present: normal appearance, PERRL, EOMI. Absent: scleral icterus, conjunctival injection, periorbital swelling ENT exam: Present: normal exam, mucous membranes moist, TM's normal bilaterally Neck exam: Present: normal inspection. Absent: tenderness, meningismus, lymphadenopathy Respiratory exam: Present: normal lung sounds bilaterally. Absent: respiratory distress, wheezes, rales, rhonchi, stridor, chest wall tenderness Cardiovascular Exam: Present: regular rate, normal rhythm, normal heart sounds. Absent: systolic murmur, diastolic murmur, rubs, gallop, clicks GI/Abdominal exam: Present: soft, normal bowel sounds. Absent: distended, tenderness, guarding, rebound, rigid Back exam: Absent: CVA tenderness (R), CVA tenderness (L) Neurological exam: Present: alert, oriented X3, CN II-XII intact Psychiatric exam: Present: normal affect, normal mood Skin exam: Present: warm, dry, intact, normal color. Absent: rash Course Vital Signs 08/01/21 13:12 Temperature 101 F H Pulse Rate 83 Respiratory 20 Rate Blood Pressure 135/68 O2 Sat by Pulse 96 Oximetry - Reevaluation(s) Reevaluation #1: 08/01/21 21:28 Upon reevaluation, patient does have faint scattered wheezes throughout the lung chandler. States she is resting comfortably. Vital signs reassessed, temp 99.7, heart rate 87, respirations 18, blood pressure 144/81, SpO2 100% on room air. Medical Decision Making - Medical Decision Making 50-year-old female with a past medical history of uncontrolled type 2 diabetes, asthma, and hypertension presents to the emergency department for evaluation of fever and cough. Upon exam, patient is well-appearing and in no acute distress. She is febrile, but not tachycardic, tachypneic, nor hypoxic. Laboratory studies were reviewed. Mild leukocytosis noted. Patient's blood glucose was 313 which patient states is normal for her. Covid and influenza swabs are negative. Chest x-ray showed mild cardiomegaly. Given patient's history of asthma and diabetes, she will be started on a Z-Trav and treated for bronchitis. Encouraged to alternate Tylenol and Motrin for fever control. Discussed increasing frequency of use of albuterol inhaler. Debated use of oral steroid due to patient's poorly controlled diabetes. However due to mild scattered wheezing, it was felt that steroid would be most appropriate, but did encourage her to call her PCP to discuss this further in the morning. Instructed to follow up with her PCP for a recheck in 1-2 days. Strict return parameters were discussed in detail. Patient verbalizes understanding and agrees with this plan. Attending: Darnell. - Lab Data Result diagrams: 08/01/21 21:12 08/01/21 21:12 Lab Results 08/01/21 08/01/21 08/01/21 Range/Units 13:18 13:18 21:12 WBC 12.4 H (3.8-10.6) k/uL RBC 3.83 (3.80-5.40) m/uL Hgb 9.8 L (11.4-16.0) gm/dL Hct 31.9 L (34.0-46.0) % MCV 83.2 (80.0-100.0) fL MCH 25.5 (25.0-35.0) pg MCHC 30.7 L (31.0-37.0) g/dL RDW 17.5 H (11.5-15.5) % Plt Count 573 H (150-450) k/uL MPV 7.6 Neutrophils % 82 % Lymphocytes % 9 % Monocytes % 5 % Eosinophils % 2 % Basophils % 0 % Neutrophils # 10.2 H (1.3-7.7) k/uL Lymphocytes # 1.1 (1.0-4.8) k/uL Monocytes # 0.6 (0-1.0) k/uL Eosinophils # 0.2 (0-0.7) k/uL Basophils # 0.1 (0-0.2) k/uL Hypochromasia Marked Anisocytosis Slight Microcytosis Slight Sodium (137-145) mmol/L Potassium (3.5-5.1) mmol/L Chloride (98-107) mmol/L Carbon Dioxide (22-30) mmol/L Anion Gap mmol/L BUN (7-17) mg/dL Creatinine (0.52-1.04) mg/dL Est GFR (CKD-EPI)AfAm (>60 ml/min/1.73 sqM) Est GFR (CKD-EPI)NonAf (>60 ml/min/1.73 sqM) Glucose (74-99) mg/dL Calcium (8.4-10.2) mg/dL NT-Pro-B Natriuret Pep pg/mL Coronavirus (PCR) Not Detected (Not Detectd) Influenza Type A RNA Not Detected (Not Detectd) Influenza Type B (PCR) Not Detected (Not Detectd) 08/01/21 08/01/21 Range/Units 21:12 21:12 WBC (3.8-10.6) k/uL RBC (3.80-5.40) m/uL Hgb (11.4-16.0) gm/dL Hct (34.0-46.0) % MCV (80.0-100.0) fL MCH (25.0-35.0) pg MCHC (31.0-37.0) g/dL RDW (11.5-15.5) % Plt Count (150-450) k/uL MPV Neutrophils % % Lymphocytes % % Monocytes % % Eosinophils % % Basophils % % Neutrophils # (1.3-7.7) k/uL Lymphocytes # (1.0-4.8) k/uL Monocytes # (0-1.0) k/uL Eosinophils # (0-0.7) k/uL Basophils # (0-0.2) k/uL Hypochromasia Anisocytosis Microcytosis Sodium 136 L (137-145) mmol/L Potassium 4.4 (3.5-5.1) mmol/L Chloride 103 (98-107) mmol/L Carbon Dioxide 24 (22-30) mmol/L Anion Gap 9 mmol/L BUN 13 (7-17) mg/dL Creatinine 0.82 (0.52-1.04) mg/dL Est GFR (CKD-EPI)AfAm >90 (>60 ml/min/1.73 sqM) Est GFR (CKD-EPI)NonAf 85 (>60 ml/min/1.73 sqM) Glucose 313 H (74-99) mg/dL Calcium 9.1 (8.4-10.2) mg/dL NT-Pro-B Natriuret Pep 463 pg/mL Coronavirus (PCR) (Not Detectd) Influenza Type A RNA (Not Detectd) Influenza Type B (PCR) (Not Detectd) - Radiology Data Radiology results: report reviewed, image reviewed Two-view chest x-ray was obtained. Report was reviewed in its entirety. Impression per Dr. Bassett is mild cardiomegaly with central perihilar increased markings suggesting mild edema. Correlate for CHF exacerbation. Disposition Clinical Impression: Acute bronchitis, Hyperglycemia, Fever Disposition: HOME SELF-CARE Condition: Stable Instructions (If sedation given, give patient instructions): Acute Bronchitis (ED) Additional Instructions: Alternate Tylenol and Motrin as needed for fever control. Take antibiotic as directed. Tessalon Perles for cough. Take at night. Do not chew or puncture- must be sw allowed whole. I did prescribe you an oral steroid. This does have a side effect of raising your blood sugar. Please call Dr. Cerda in the morning to discuss this with him. Increase fluids. Continue home medications including your albuterol inhaler every 4-6 hours. Follow-up with your PCP for a recheck in 1-2 days. Return to the emergency department with any new, worsening, or concerning symptoms. Prescriptions: Azithromycin 250 mg PO DAILY 4 Days #1 tab predniSONE 50 mg PO DAILY #4 tab Benzonatate [Tessalon Perles] 100 mg PO TID PRN #15 capsule PRN Reason: Cough Is patient prescribed a controlled substance at d/c from ED?: No Referrals: Guillermo Cerda MD [Primary Care Provider] - 1-2 days Time of Disposition: 22:35
[2021-08-01 22:03] LABS: Anisocytosis Slight; Basophils # (A) 0.1 k/uL (0-0.2); Basophils % (A) 0 %; Eosinophils # (A) 0.2 k/uL (0-0.7); Eosinophils % (A) 2 %; HCT 31.9 % (34.0-46.0); HGB 9.8 gm/dL (11.4-16.0); Hypochromasia Marked; Lymphocytes # (A) 1.1 k/uL (1.0-4.8); Lymphocytes % (A) 9 %; MCH 25.5 pg (25.0-35.0); MCHC 30.7 g/dL (31.0-37.0); MCV 83.2 fL (80.0-100.0); Mean Platelet Volume 7.6; Microcytosis Slight; Monocytes # (A) 0.6 k/uL (0-1.0); Monocytes % (A) 5 %; Neutrophils # (A) 10.2 k/uL (1.3-7.7); Neutrophils % (A) 82 %; Platelet Count 573 k/uL (150-450); RBC 3.83 m/uL (3.80-5.40); RDW 17.5 % (11.5-15.5); WBC 12.4 k/uL (3.8-10.6)
[2021-08-01 22:12] LABS: African American GFR (CKD) >90 (>60 ml/min/1.73 sqM); Anion Gap 9 mmol/L; Blood Urea Nitrogen 13 mg/dL (7-17); Calcium 9.1 mg/dL (8.4-10.2); Carbon Dioxide 24 mmol/L (22-30); Chloride 103 mmol/L (98-107); Glucose 313 mg/dL (74-99); Non-African American GFR(CKD) 85 (>60 ml/min/1.73 sqM); Potassium 4.4 mmol/L (3.5-5.1); Sodium 136 mmol/L (137-145)
[2021-08-01] MEDS ORDERED: AZITHROMYCIN 500 MG TAB PO STA (22:31)
[2021-08-01] MEDS ORDERED: BENZONATATE 100 MG CAP PO STA (22:36)
[2021-08-01] MEDS ORDERED: IBUPROFEN 600 MG TAB PO STA (22:39)
[2021-08-01] MEDS ORDERED: predniSONE 50 MG TAB PO STA (22:53)
== END 2021-08-01 23:05 | disposition home or self-care (01) ==
LOC: EC 12:47
DX: J20.9 Acute bronchitis, unspecified (principal); R73.9 Hyperglycemia, unspecified; I10 Essential (primary) hypertension; K21.9 Gastro-esophageal reflux disease without esophagitis; Z79.83 Long term (current) use of bisphosphonates; Z87.891 Personal history of nicotine dependence; Z20.822 Contact with and (suspected) exposure to COVID-19; Z88.1 Allergy status to other antibiotic agents
CPT/HCPCS: 36415; 71046; 80048; 83880; 85025; 87502; 87635; 99285

== ENCOUNTER 2021-08-07 18:56 | Inpatient (IN) | payer MEDICARE ==
[2021-08-07 19:15] LABS: Glucose,Whole Blood >600 mg/dL (75-99)
[2021-08-07] MEDS ORDERED: SODIUM CHLORIDE 0.9% 1,000 ML IV STA (20:03)
--- NOTE | 2021-08-07 20:06 | ED ---
General Adult HPI - General Chief complaint: Recheck/Abnormal Lab/Rx Stated complaint: High Blood Sugar Time Seen by Provider: 08/07/21 19:35 Source: patient, EMS, RN notes reviewed Mode of arrival: EMS Limitations: no limitations - History of Present Illness Initial comments: Patient is a pleasant 50-year-old female presenting to the emergency department with fatigue and hyperglycemia. Patient states she has not been feeling well for the past couple of days. Mild cough. Patient feels fatigued and somewhat weak all over. No fever. Patient did check her blood sugar and it read high on her monitor. - Related Data Home Medications Medication Instructions Recorded Confirmed Atorvastatin [Lipitor] 80 mg PO HS 06/25/19 08/01/21 lisinopriL 40 mg PO DAILY 09/24/20 08/01/21 metFORMIN HCL [Glucophage] 500 mg PO DAILY 09/24/20 08/01/21 traZODone HCL 50 - 100 mg PO HS PRN 01/11/21 08/01/21 Ergocalciferol (Vitamin D2) 1,250 mcg PO TU 03/03/21 08/01/21 [Drisdol (50,000 Iu)] Esomeprazole Magnesium [NexIUM] 20 mg PO DAILY 03/28/21 08/01/21 INSULIN ASPART (NovoLOG) [NovoLOG 18 unit SQ AC-TID 04/26/21 08/01/21 (formulary)] Albuterol Inhaler [Ventolin Hfa 2 puff INHALATION RT-QID PRN 07/28/21 08/01/21 Inhaler] Previous Rx's Medication Instructions Recorded Fenofibrate [Lofibra] 160 mg PO DAILY #30 tab 03/23/19 hydrOXYzine HCL [Atarax] 25 mg PO TID PRN #15 tab 06/04/21 Insulin Detemir (Levemir) [Levemir] 56 unit SQ DAILY@0700 30 Days #2 07/11/21 dispenser Azithromycin 250 mg PO DAILY 4 Days #1 tab 08/01/21 Benzonatate [Tessalon Perles] 100 mg PO TID PRN #15 capsule 08/01/21 predniSONE 50 mg PO DAILY #4 tab 08/01/21 Allergies Allergy/AdvReac Type Severity Reaction Status Date / Time levofloxacin [From Levaquin] Allergy Rash/Hives Verified 08/07/21 19:08 Review of Systems ROS Statement: Those systems with pertinent positive or pertinent negative responses have been documented in the HPI. ROS Other: All systems not noted in ROS Statement are negative. Constitutional: Denies: fever Eyes: Denies: eye pain ENT: Denies: ear pain Respiratory: Reports: cough. Denies: dyspnea Cardiovascular: Denies: chest pain Endocrine: Reports: fatigue Gastrointestinal: Denies: abdominal pain, vomiting Genitourinary: Denies: dysuria Musculoskeletal: Denies: back pain Skin: Denies: rash Neurological: Denies: weakness Past Medical History Past Medical History: Diabetes Mellitus, GERD/Reflux, Hyperlipidemia, Hypertension, Syncope Additional Past Medical History / Comment(s): Pancreatitis, hypertr iglyceridemia, elevated lipase, IDDM type II, UTI, chronic low back pain, bulging discs, dental abscesses in past. History of Any Multi-Drug Resistant Organisms: None Reported Past Surgical History: Tubal Ligation Additional Past Surgical History / Comment(s): Age 7 had VSD repair Past Anesthesia/Blood Transfusion Reactions: No Reported Reaction Past Psychological History: No Psychological Hx Reported Smoking Status: Former smoker Past Alcohol Use History: None Reported Past Drug Use History: None Reported - Past Family History Mother Family Medical History: No Reported History Additional Family Medical History / Comment(s): Mother was healthy. She is , pt cannot recall cause of . Father Family Medical History: Pneumonia Additional Family Medical History / Comment(s): Father at the age of 67yrs from pneumonia General Exam Limitations: no limitations General appearance: alert, in no apparent distress Head exam: Present: normocephalic Eye exam: Present: normal appearance ENT exam: Present: normal oropharynx Neck exam: Present: normal inspection Respiratory exam: Present: normal lung sounds bilaterally Cardiovascular Exam: Present: regular rate, normal rhythm GI/Abdominal exam: Present: soft. Absent: tenderness Extremities exam: Present: normal inspection. Absent: pedal edema, calf tenderness Neurological exam: Present: alert Psychiatric exam: Present: normal affect, normal mood Skin exam: Present: normal color Course Vital Signs 08/07/21 19:02 Temperature 98.4 F Pulse Rate 70 Respiratory 18 Rate Blood Pressure 124/70 O2 Sat by Pulse 96 Oximetry EKG Findings - EKG Comments: EKG Findings:: Sinus rhythm with rate of 73. OR 141. QRS 87. QT 370. QTc 395. Normal axis. Normal QRS. Nonspecific ST-T. Medical Decision Making - Medical Decision Making Patient reevaluated and updated. Patient completes of nausea. Case discussed with Dr. Cerda, who will admit his patient for glucose control - Lab Data Result diagrams: 08/07/21 20:17 08/07/21 20:17 Lab Results 08/07/21 08/07/21 08/07/21 Range/Units 19:13 20:17 20:17 WBC 14.0 H (3.8-10.6) k/uL RBC 4.37 (3.80-5.40) m/uL Hgb 10.8 L (11.4-16.0) gm/dL Hct 37.5 (34.0-46.0) % MCV 85.7 (80.0-100.0) fL MCH 24.7 L (25.0-35.0) pg MCHC 28.8 L (31.0-37.0) g/dL RDW 17.4 H (11.5-15.5) % Plt Count 956 H (150-450) k/uL MPV 7.1 Neutrophils % 84 % Lymphocytes % 12 % Monocytes % 2 % Eosinophils % 1 % Basophils % 0 % Neutrophils # 11.8 H (1.3-7.7) k/uL Lymphocytes # 1.6 (1.0-4.8) k/uL Monocytes # 0.3 (0-1.0) k/uL Eosinophils # 0.2 (0-0.7) k/uL Basophils # 0.0 (0-0.2) k/uL Hypochromasia Marked Anisocytosis Slight PT 10.0 (9.0-12.0) sec INR 0.9 (<1.2) APTT 21.2 L (22.0-30.0) sec Sodium (137-145) mmol/L Potassium (3.5-5.1) mmol/L Chloride (98-107) mmol/L Carbon Dioxide (22-30) mmol/L Anion Gap mmol/L BUN (7-17) mg/dL Creatinine (0.52-1.04) mg/dL Est GFR (CKD-EPI)AfAm (>60 ml/min/1.73 sqM) Est GFR (CKD-EPI)NonAf (>60 ml/min/1.73 sqM) Glucose (74-99) mg/dL POC Glucose (mg/dL) >600 H (75-99) mg/dL POC Glu Fireworks Display Specialist ID Chantel Rush Plasma Lactic Acid Travon (0.7-2.0) mmol/L Calcium (8.4-10.2) mg/dL Magnesium (1.6-2.3) mg/dL Total Bilirubin (0.2-1.3) mg/dL AST (14-36) U/L ALT (4-34) U/L Alkaline Phosphatase (38-126) U/L Troponin I (0.000-0.034) ng/mL Total Protein (6.3-8.2) g/dL Albumin (3.5-5.0) g/dL Urine Color Urine Appearance (Clear) Urine pH (5.0-8.0) Ur Specific [place] (1.001-1.035) Urine Protein (Negative) Urine Glucose (UA) (Negative) Urine Ketones (Negative) Urine Blood (Negative) Urine Nitrite (Negative) Urine Bilirubin (Negative) Urine Urobilinogen (<2.0) mg/dL Ur Leukocyte Esterase (Negative) Acetone, Qual (Negative) Coronavirus (PCR) (Not Detectd) 08/07/21 08/07/21 08/07/21 Range/Units 20:17 20:17 20:17 WBC (3.8-10.6) k/uL RBC (3.80-5.40) m/uL Hgb (11.4-16.0) gm/dL Hct (34.0-46.0) % MCV (80.0-100.0) fL MCH (25.0-35.0) pg MCHC (31.0-37.0) g/dL RDW (11.5-15.5) % Plt Count (150-450) k/uL MPV Neutrophils % % Lymphocytes % % Monocytes % % Eosinophils % % Basophils % % Neutrophils # (1.3-7.7) k/uL Lymphocytes # (1.0-4.8) k/uL Monocytes # (0-1.0) k/uL Eosinophils # (0-0.7) k/uL Basophils # (0-0.2) k/uL Hypochromasia Anisocytosis PT (9.0-12.0) sec INR (<1.2) APTT (22.0-30.0) sec Sodium 124 L (137-145) mmol/L Potassium 4.9 (3.5-5.1) mmol/L Chloride 91 L (98-107) mmol/L Carbon Dioxide 21 L (22-30) mmol/L Anion Gap 12 mmol/L BUN 27 H (7-17) mg/dL Creatinine 1.01 (0.52-1.04) mg/dL Est GFR (CKD-EPI)AfAm 76 (>60 ml/min/1.73 sqM) Est GFR (CKD-EPI)NonAf 66 (>60 ml/min/1.73 sqM) Glucose 776 H* (74-99) mg/dL POC Glucose (mg/dL) (75-99) mg/dL POC Glu Fireworks Display Specialist ID Plasma Lactic Acid Travon 2.9 H* (0.7-2.0) mmol/L Calcium 8.6 (8.4-10.2) mg/dL Magnesium 1.8 (1.6-2.3) mg/dL Total Bilirubin 0.6 (0.2-1.3) mg/dL AST 50 H (14-36) U/L ALT 23 (4-34) U/L Alkaline Phosphatase 176 H (38-126) U/L Troponin I (0.000-0.034) ng/mL Total Protein 6.6 (6.3-8.2) g/dL Albumin 3.6 (3.5-5.0) g/dL Urine Color Colorless Urine Appearance Clear (Clear) Urine pH 6.0 (5.0-8.0) Ur Specific [place] 1.026 (1.001-1.035) Urine Protein Negative (Negative) Urine Glucose (UA) 4+ H (Negative) Urine Ketones Negative (Negative) Urine Blood Negative (Negative) Urine Nitrite Negative (Negative) Urine Bilirubin Negative (Negative) Urine Urobilinogen <2.0 (<2.0) mg/dL Ur Leukocyte Esterase Negative (Negative) Acetone, Qual Negative (Negative) Coronavirus (PCR) (Not Detectd) 08/07/21 08/07/21 Range/Units 20:17 20:17 WBC (3.8-10.6) k/uL RBC (3.80-5.40) m/uL Hgb (11.4-16.0) gm/dL Hct (34.0-46.0) % MCV (80.0-100.0) fL MCH (25.0-35.0) pg MCHC (31.0-37.0) g/dL RDW (11.5-15.5) % Plt Count (150-450) k/uL MPV Neutrophils % % Lymphocytes % % Monocytes % % Eosinophils % % Basophils % % Neutrophils # (1.3-7.7) k/uL Lymphocytes # (1.0-4.8) k/uL Monocytes # (0-1.0) k/uL Eosinophils # (0-0.7) k/uL Basophils # (0-0.2) k/uL Hypochromasia Anisocytosis PT (9.0-12.0) sec INR (<1.2) APTT (22.0-30.0) sec Sodium (137-145) mmol/L Potassium (3.5-5.1) mmol/L Chloride (98-107) mmol/L Carbon Dioxide (22-30) mmol/L Anion Gap mmol/L BUN (7-17) mg/dL Creatinine (0.52-1.04) mg/dL Est GFR (CKD-EPI)AfAm (>60 ml/min/1.73 sqM) Est GFR (CKD-EPI)NonAf (>60 ml/min/1.73 sqM) Glucose (74-99) mg/dL POC Glucose (mg/dL) (75-99) mg/dL POC Glu Fireworks Display Specialist ID Plasma Lactic Acid Travon (0.7-2.0) mmol/L Calcium (8.4-10.2) mg/dL Magnesium (1.6-2.3) mg/dL Total Bilirubin (0.2-1.3) mg/dL AST (14-36) U/L ALT (4-34) U/L Alkaline Phosphatase (38-126) U/L Troponin I <0.012 (0.000-0.034) ng/mL Total Protein (6.3-8.2) g/dL Albumin (3.5-5.0) g/dL Urine Color Urine Appearance (Clear) Urine pH (5.0-8.0) Ur Specific [place] (1.001-1.035) Urine Protein (Negative) Urine Glucose (UA) (Negative) Urine Ketones (Negative) Urine Blood (Negative) Urine Nitrite (Negative) Urine Bilirubin (Negative) Urine Urobilinogen (<2.0) mg/dL Ur Leukocyte Esterase (Negative) Acetone, Qual (Negative) Coronavirus (PCR) Not Detected (Not Detectd) Disposition Clinical Impression: Hyperglycemia Disposition: ADMITTED IP TO THIS HOSP Is patient prescribed a controlled substance at d/c from ED?: No Referrals: Guillermo Cerda MD [Primary Care Provider] - 1-2 days Time of Disposition: 21:14
[2021-08-07 20:30] LABS: Appearance,Urine Clear (Clear); Bilirubin,Urine Negative (Negative); Blood,Urine Negative (Negative); Color,Urine Colorless; Glucose,Urine (UA) 4+ (Negative); Ketones,Urine Negative (Negative); Leukocyte Esterase,Urine Negative (Negative); Nitrite,Urine Negative (Negative); Protein,Urine Negative (Negative); Specific Gravity,Urine 1.026 (1.001-1.035); Urobilinogen,Urine <2.0 mg/dL (<2.0)
[2021-08-07 20:31] LABS: Anisocytosis Slight; Basophils % (A) 0 %; Eosinophils # (A) 0.2 k/uL (0-0.7); Eosinophils % (A) 1 %; HCT 37.5 % (34.0-46.0); HGB 10.8 gm/dL (11.4-16.0); Hypochromasia Marked; Lymphocytes # (A) 1.6 k/uL (1.0-4.8); Lymphocytes % (A) 12 %; MCH 24.7 pg (25.0-35.0); MCHC 28.8 g/dL (31.0-37.0); MCV 85.7 fL (80.0-100.0); Mean Platelet Volume 7.1; Monocytes # (A) 0.3 k/uL (0-1.0); Monocytes % (A) 2 %; Neutrophils # (A) 11.8 k/uL (1.3-7.7); Neutrophils % (A) 84 %; Platelet Count 956 k/uL (150-450); RBC 4.37 m/uL (3.80-5.40); RDW 17.4 % (11.5-15.5)
[2021-08-07 20:42] LABS: ALT 23 U/L (4-34); AST 50 U/L (14-36); African American GFR (CKD) 76 (>60 ml/min/1.73 sqM); Albumin 3.6 g/dL (3.5-5.0); Alkaline Phosphatase 176 U/L (38-126); Anion Gap 12 mmol/L; Blood Urea Nitrogen 27 mg/dL (7-17); Calcium 8.6 mg/dL (8.4-10.2); Carbon Dioxide 21 mmol/L (22-30); Chloride 91 mmol/L (98-107); Magnesium 1.8 mg/dL (1.6-2.3); Non-African American GFR(CKD) 66 (>60 ml/min/1.73 sqM); Potassium 4.9 mmol/L (3.5-5.1); Sodium 124 mmol/L (137-145); Total Bilirubin 0.6 mg/dL (0.2-1.3); Total Protein 6.6 g/dL (6.3-8.2)
[2021-08-07 20:48] LABS: INR 0.9 (<1.2); Partial Thromboplastin Time 21.2 sec (22.0-30.0)
[2021-08-07 20:51] LABS: Glucose 776 mg/dL (74-99)
--- NOTE | 2021-08-07 21:08 | XR ---
EXAMINATION TYPE: XR chest 2V DATE OF EXAM: 08/07/2021 8:46 PM COMPARISON: Multiple radiographs, with the most recent on 08/01/2021 TECHNIQUE: XR chest 2V Frontal and lateral views of the chest. CLINICAL INDICATION:Female, 50 years old with history of Weakness; FINDINGS: Lungs/Pleura: There is no evidence of pleural effusion, focal consolidation, or pneumothorax. Pulmonary vascularity: Unremarkable. Heart/mediastinum: Cardiomediastinal silhouette is enlarged and stable. Musculoskeletal: No acute osseous pathology. IMPRESSION: No acute cardiopulmonary disease/process.
[2021-08-07] MEDS ORDERED: ONDANSETRON 4 MG/2 ML VIAL IVP STA (21:12)
[2021-08-07] MEDS ORDERED: SODIUM CHLORIDE 0.9% 1,000 ML IV ONE (21:14)
[2021-08-07] MEDS ORDERED: INSULIN REGULAR BOLUS (FROM DRIP BAG) IV ONE (21:14)
[2021-08-07 21:35] LABS: Glucose,Whole Blood >600 mg/dL (75-99)
[2021-08-07] MEDS: INSULIN REGULAR 100 UNIT in SODIUM CHLORIDE 0.9% 100 ML IV SCH (21:38)
[2021-08-07] MEDS: SODIUM CHLORIDE 0.9% 1,000 ML IV SCH (21:39)
[2021-08-07 22:53] LABS: Glucose,Whole Blood 559 mg/dL (75-99)
[2021-08-08 00:01] LABS: Glucose,Whole Blood 590 mg/dL (75-99)
[2021-08-08] MEDS: traZODone HCL 100 MG TAB PO SCH ×2 (00:08→20:47)
[2021-08-08 00:31] LABS: Potassium 4.2 mmol/L (3.5-5.1)
[2021-08-08 01:06] LABS: Glucose,Whole Blood 369 mg/dL (75-99)
[2021-08-08 01:59] LABS: Glucose,Whole Blood 441 mg/dL (75-99)
[2021-08-08 03:06] LABS: Glucose,Whole Blood 260 mg/dL (75-99)
[2021-08-08] MEDS: D5-0.45% NACL WITH KCL 20MEQ/L 1,000 ML IV SCH ×4 (03:16→23:14)
[2021-08-08 04:16] LABS: Glucose,Whole Blood 197 mg/dL (75-99)
[2021-08-08 04:37] LABS: African American GFR (CKD) >90 (>60 ml/min/1.73 sqM); Anion Gap 9 mmol/L; Blood Urea Nitrogen 24 mg/dL (7-17); Carbon Dioxide 22 mmol/L (22-30); Chloride 102 mmol/L (98-107); Glucose 207 mg/dL (74-99); Non-African American GFR(CKD) 79 (>60 ml/min/1.73 sqM); Phosphorus 3.2 mg/dL (2.5-4.5); Potassium 3.4 mmol/L (3.5-5.1); Sodium 133 mmol/L (137-145)
[2021-08-08] MEDS: INSULIN REGULAR 100 UNIT in SODIUM CHLORIDE 0.9% 100 ML IV SCH ×2 (04:58→16:53)
[2021-08-08] MEDS: SODIUM CHLORIDE 0.9% 1,000 ML IV SCH ×5 (05:01→22:08)
[2021-08-08 05:22] LABS: Glucose,Whole Blood 224 mg/dL (75-99)
[2021-08-08 06:24] LABS: Glucose,Whole Blood 252 mg/dL (75-99)
[2021-08-08 07:39] LABS: Glucose,Whole Blood 226 mg/dL (75-99)
[2021-08-08 08:52] LABS: Glucose,Whole Blood 126 mg/dL (75-99)
[2021-08-08 10:27] LABS: Glucose,Whole Blood 189 mg/dL (75-99)
[2021-08-08 11:22] LABS: Glucose,Whole Blood 158 mg/dL (75-99)
[2021-08-08] MEDS ORDERED: traZODone HCL 50 MG TAB PO PRN (11:32)
[2021-08-08] MEDS ORDERED: ALBUTEROL NEBULIZED 2.5 MG/3 ML INHALATION PRN (11:32)
[2021-08-08 12:38] LABS: Glucose,Whole Blood 174 mg/dL (75-99)
[2021-08-08 14:05] LABS: Glucose,Whole Blood 270 mg/dL (75-99)
[2021-08-08] MEDS: INSULIN ASPART (NovoLOG) 100 UNIT/ML VIAL SQ SCH ×2 (14:11→16:59)
[2021-08-08 15:08] LABS: Glucose,Whole Blood 337 mg/dL (75-99)
[2021-08-08 16:55] LABS: Glucose,Whole Blood 348 mg/dL (75-99)
--- NOTE | 2021-08-08 17:47 | HP ---
HISTORY AND PHYSICAL CHIEF COMPLAINT: Abdominal pain and elevated blood sugar. HISTORY OF PRESENT ILLNESS: This is another recent admission for this 50-year-old noncompliant obese white female who has insulin-dependent diabetes mellitus, but will not take care of herself. She is illiterate, which does create a problem for her. She also has hypertriglyceridemia, which has resulted in frequent episodes of pancreatitis. She came in this time with a blood sugar over 900. REVIEW OF SYSTEMS: She denies any headache, neurologic problems, change in the vision, chest pain, shortness of breath, abdominal pain, melena, hematochezia, jaundice, etc. Past medical history, family history, and personal and social histories are all otherwise unremarkable or noncontributory. They are not changed from her recent admitting and discharge summaries. She fails to follow up in the office. She is on Levemir 56 units once a day and NovoLog 18 units with meals. She is also on lisinopril, fenofibrate and metformin. She does smoke. PHYSICAL EXAMINATION: Blood pressure is 131/76 with a pulse of 100, respirations of 36, and she is afebrile. In general she appeared to be overweight and slightly dehydrated. She was awake and alert. Skin color was normal. Skin was warm and dry. Lymph nodes were not enlarged. Head, ears, eyes, nose, mouth and throat were normal. Neck veins were not distended. Thyroid was not enlarged. Chest was clear. Cardiac exam demonstrated sinus tachycardia. The abdomen was protuberant, soft, and she is tender over the epigastrium. There are no masses. There is no referred or rebound tenderness. Extremities are normal. Neurologically she is intact. She is admitted to the hospital with diagnoses: 1. Uncontrolled type 2 insulin-dependent diabetes mellitus. 2. Chronic pancreatitis. 3. Obesity. 4. Hypertension. 5. Nicotine abuse. PLAN: 1. Bedrest. 2. IV fluids. 3. DKA protocol. MMODL / IJN: [id number] /
--- NOTE | 2021-08-08 17:51 | PN ---
PROGRESS NOTE DATE OF SERVICE: 08/08/2021 CHIEF COMPLAINT: Uncontrolled diabetes and pancreatitis. HISTORY OF PRESENT ILLNESS: This lady is doing a little bit better. She is not nauseated. Blood sugars are coming down. She will be switched over to her basal bolus insulin management. PHYSICAL EXAMINATION: Her chest is clear. Cardiac exam is normal. Abdomen is protuberant. She is tender over the epigastrium. Bowel sounds are present. IMPRESSION: 1. Uncontrolled insulin-dependent diabetes mellitus. 2. Chronic relapsing pancreatitis. 3. Obesity. 4. Hypertriglyceridemia. PLAN: Continue with IV fluids and advance diet and activity, and she will probably be able to go home tomorrow. MMODL / IJN: [id number] /
[2021-08-08 18:43] LABS: Glucose,Whole Blood 286 mg/dL (75-99)
[2021-08-08 20:54] LABS: Glucose,Whole Blood 259 mg/dL (75-99)
[2021-08-09] MEDS: SODIUM CHLORIDE 0.9% 1,000 ML IV SCH ×4 (03:12→20:23)
[2021-08-09] MEDS: D5-0.45% NACL WITH KCL 20MEQ/L 1,000 ML IV SCH (03:13)
[2021-08-09] MEDS ORDERED: INSULIN DETEMIR (LEVEMIR) 100 UNIT/ML SYR SQ SCH (07:00)
[2021-08-09 07:17] LABS: Glucose,Whole Blood 428 mg/dL (75-99)
[2021-08-09] MEDS: lisinopriL 20 MG TAB PO SCH (09:01)
[2021-08-09] MEDS: INSULIN ASPART (NovoLOG) 100 UNIT/ML VIAL SQ SCH ×6 (09:01→20:24)
[2021-08-09] MEDS: metFORMIN 500 MG TAB PO SCH (09:01)
[2021-08-09 11:30] LABS: Anisocytosis Slight; Basophils % (A) 0 %; Eosinophils # (A) 0.3 k/uL (0-0.7); Eosinophils % (A) 3 %; HCT 32.1 % (34.0-46.0); HGB 9.4 gm/dL (11.4-16.0); Hypochromasia Marked; Lymphocytes # (A) 1.3 k/uL (1.0-4.8); Lymphocytes % (A) 11 %; MCH 24.8 pg (25.0-35.0); MCHC 29.4 g/dL (31.0-37.0); MCV 84.2 fL (80.0-100.0); Monocytes # (A) 0.4 k/uL (0-1.0); Monocytes % (A) 3 %; Neutrophils # (A) 9.7 k/uL (1.3-7.7); Neutrophils % (A) 81 %; Platelet Count 743 k/uL (150-450); RBC 3.81 m/uL (3.80-5.40); RDW 17.4 % (11.5-15.5); WBC 11.9 k/uL (3.8-10.6)
[2021-08-09 11:41] LABS: African American GFR (CKD) >90 (>60 ml/min/1.73 sqM); Anion Gap 9 mmol/L; Blood Urea Nitrogen 18 mg/dL (7-17); Calcium 8.3 mg/dL (8.4-10.2); Carbon Dioxide 23 mmol/L (22-30); Chloride 100 mmol/L (98-107); Glucose 457 mg/dL (74-99); Non-African American GFR(CKD) 82 (>60 ml/min/1.73 sqM); Potassium 4.9 mmol/L (3.5-5.1); Sodium 132 mmol/L (137-145)
[2021-08-09 11:48] LABS: Glucose,Whole Blood 432 mg/dL (75-99)
[2021-08-09] MEDS: HYDROcodone/APAP 5-325MG 1 EACH TAB PO PRN ×2 (13:47→20:21)
--- NOTE | 2021-08-09 14:20 | P.PN ---
Subjective Progress Note Date: 08/09/21 This is a 50-year-old female who was recently admitted for hyperglycemia and chronic pancreatitis and is being closely monitored. Patient follows with Dr. Cerda in the outpatient setting. Patient has an extensive past medical history of noncompliance and multiple hospitalizations for this. On Exam today patient reports to not sleeping very well and having continued abdominal pain. WBC this morning shows 11.9 which is improved from 14.0, with hemoglobin of 9.4, sodium mildly low at 132 with a potassium of 4.9 current creatinine is 0.85 and magnesium is 2.0. Blood sugars into threes to 400s. Patient currently maintained on pre-meal insulin along with long-acting and will also add sliding scale and continue and increase the dose of pre-meal and long-acting as well. Patient is afebrile patient denies any chest pain or shortness of breath. No reports of nausea or vomiting and patient is tolerating diet. Review of systems: Constitutional: No reports of fatigue, fever, or chills, patient reports to not sleeping well Cardiovascular: No reports of chest pain or palpitations Respiratory: No reports of shortness of breath or cough GI: No reports of nausea, no reports of of vomiting, patient reports to abdominal pain generalized : No reports of dysuria or retention Neurovascular: reports of generalized weakness All medications have been reviewed Active Medications Hydrocodone Bitart/Acetaminophen (Hydrocodone/Apap 5-325mg 1 Each Tab) 1 each PO Q6HR PRN PRN Reason: Pain Last Admin: 08/09/21 13:47 Dose: 1 each Documented by: Albuterol Sulfate (Albuterol Nebulized 2.5 Mg/3 Ml) 2.5 mg INHALATION RT-QID PRN PRN Reason: Shortness Of Breath Sodium Chloride (Saline 0.9%) 1,000 mls @ 200 mls/hr IV .Q5H YARON Last Admin: 08/09/21 13:36 Dose: Not Given Documented by: Sodium Chloride (Saline 0.9%) 1,000 mls @ 500 mls/hr IV .Q2H ONE Last Admin: 08/07/21 21:39 Dose: Not Given Documented by: Insulin Aspart (Insulin Aspart (Novolog) 100 Unit/Ml Vial) 20 unit SQ AC-TID YARON Last Admin: 08/09/21 13:36 Dose: 20 unit Documented by: Insulin Aspart (Insulin Aspart (Novolog) 100 Unit/Ml Vial) 0 unit SQ ACHS [facility]; Protocol Last Admin: 08/09/21 13:37 Dose: 11 unit Documented by: Insulin Detemir (Insulin Detemir (Levemir) 100 Unit/Ml Syr) 60 unit SQ DAILY@0700 [facility] Lisinopril (Lisinopril 20 Mg Tab) 40 mg PO DAILY [facility] Last Admin: 08/09/21 09:01 Dose: 40 mg Documented by: Metformin HCl (Metformin 500 Mg Tab) 500 mg PO DAILY [facility] Last Admin: 08/09/21 09:01 Dose: 500 mg Documented by: Trazodone HCl (Trazodone Hcl 100 Mg Tab) 100 mg PO HS [facility] Last Admin: 08/08/21 20:47 Dose: 100 mg Documented by: Trazodone HCl (Trazodone Hcl 50 Mg Tab) 50 mg PO HS PRN PRN Reason: Insomnia PHYSICAL EXAMINATION: GENERAL: The patient is alert and oriented x4, Well developed, well nourished. Morbidly obese HEENT: Pupils are round and equally reacting to light. EOMI. no scleral icterus. No conjunctival pallor. Normocephalic, atraumatic. No pharyngeal erythema. No thyromegaly. CARDIOVASCULAR: S1 and S2 muffled PULMONARY: diminished breath sounds bilaterally with no wheezing or rhonchi noted. ABDOMEN: soft. Tender on exam. obese. non-distended, normoactive bowel sounds. No palpable organomegaly. MUSCULOSKELETAL: No joint swelling or deformity. EXTREMITIES: No cyanosis, clubbing, or pedal edema. NEUROLOGICAL: Gross neurological examination did not reveal any focal deficits. Diffuse weakness SKIN: No rashes. Assessment: Diabetes mellitus type 2, insulin dependent, uncontrolled with hyperglycemia Chronic pancreatitis Morbid obesity Hypertension Continued ongoing nicotine abuse GI prophylaxis DVT prophylaxis Full code Plan: Recommend to continue with current medications and management. Multiple adjustments made to blood sugar regimen as patient's blood sugars continue to be elevated into 3-400s. Discussed with patient about strict consistent carb and diabetic diet and medication adherence. Patient reports to having significant abdominal pain and not sleeping well last night. on med rec it shows patient has trazodone at night for sleep. Will add Hydes for the pain. Encouraged increased activity and getting up out of the bed and sitting in the chair more often. She follows with Dr. Cerda and has had multiple hospitalizations for noncompliance secondary to her chronic pancreatitis and poor diabetes management. Dietitian is consulted. Adjustments have been made to pre-meal insulin along with long-acting and will add sliding scale and recommend to continue with Accu-Cheks before meals and at bedtime. Due to multiple complex medical issues, prognosis is guarded. The impression and plan of care has been dictated by Shalini Ramirez, nurse practitioner as directed. MD Karl I have performed a history and examination and MDM of this patient, discussed the same with the dictator, and agree with the dictator's assessment and plan as written ,documented as a scribe. Based on total visit time, I have performed more than 50% of the visit. Any additional findings or plans will be noted. Objective - Vital Signs Vital signs: Vital Signs Temp 98.5 F 08/09/21 05:00 Pulse 70 08/09/21 05:00 Resp 16 08/09/21 05:00 BP 96/52 08/09/21 05:00 Pulse Ox 97 08/09/21 05:00 Intake & Output 08/08/21 08/09/21 08/09/21 18:59 06:59 18:59 Intake Total 63.628 990 Balance 63.628 990 Weight 102.965 kg Intake: Intake, IV Titration 63.628 400 Amount D5-0.45% NaCl with KCl 400 20Meq/l 1,000 ml @ 50 mls /hr IV .Q20H YARON Rx#: [id number] Insulin Regular 100 unit 63.628 In Sodium Chloride 0.9% 100 ml @ 0.1 UNITS/KG/HR 10.399 mls/hr IV .Q9H43M YARON Rx#:[id number] Oral 590 Other: Voiding Method Toilet # Voids 2 - Labs CBC & Chem 7: 08/09/21 11:11 08/09/21 11:11 Labs: Abnormal Lab Results - Last 24 Hours (Table) 08/08/21 08/08/21 08/08/21 Range/Units 10:17 11:18 12:36 POC Glucose (mg/dL) 189 H 158 H 174 H (75-99) mg/dL 08/08/21 08/08/21 08/08/21 Range/Units 13:55 15:06 16:48 POC Glucose (mg/dL) 270 H 337 H 348 H (75-99) mg/dL 08/08/21 08/08/21 08/09/21 Range/Units 18:41 20:53 07:15 POC Glucose (mg/dL) 286 H 259 H 428 H (75-99) mg/dL
[2021-08-09 16:32] VITALS: BMI 44.3
[2021-08-09 17:27] LABS: Glucose,Whole Blood 264 mg/dL (75-99)
[2021-08-09 20:02] LABS: Glucose,Whole Blood 233 mg/dL (75-99)
[2021-08-09] MEDS: traZODone HCL 100 MG TAB PO SCH (20:21)
[2021-08-10] MEDS: HYDROcodone/APAP 5-325MG 1 EACH TAB PO PRN ×4 (02:33→20:02)
[2021-08-10] MEDS: SODIUM CHLORIDE 0.9% 1,000 ML IV SCH ×3 (03:21→13:32)
[2021-08-10 06:03] LABS: Anisocytosis Slight; Basophils % (A) 0 %; Eosinophils # (A) 0.3 k/uL (0-0.7); Eosinophils % (A) 3 %; HCT 30.2 % (34.0-46.0); HGB 8.5 gm/dL (11.4-16.0); Hypochromasia Marked; Lymphocytes % (A) 20 %; MCH 23.9 pg (25.0-35.0); MCHC 28.1 g/dL (31.0-37.0); MCV 84.8 fL (80.0-100.0); Mean Platelet Volume 7.2; Monocytes # (A) 0.4 k/uL (0-1.0); Monocytes % (A) 4 %; Neutrophils # (A) 6.9 k/uL (1.3-7.7); Neutrophils % (A) 71 %; Platelet Count 642 k/uL (150-450); RBC 3.56 m/uL (3.80-5.40); RDW 17.4 % (11.5-15.5); WBC 9.8 k/uL (3.8-10.6)
[2021-08-10 06:25] LABS: African American GFR (CKD) >90 (>60 ml/min/1.73 sqM); Anion Gap 7 mmol/L; Blood Urea Nitrogen 20 mg/dL (7-17); Calcium 8.3 mg/dL (8.4-10.2); Carbon Dioxide 23 mmol/L (22-30); Chloride 106 mmol/L (98-107); Glucose 310 mg/dL (74-99); Non-African American GFR(CKD) 78 (>60 ml/min/1.73 sqM); Potassium 4.4 mmol/L (3.5-5.1); Sodium 136 mmol/L (137-145)
[2021-08-10 07:15] LABS: Glucose,Whole Blood 327 mg/dL (75-99)
[2021-08-10] MEDS: metFORMIN 500 MG TAB PO SCH (08:20)
[2021-08-10] MEDS: lisinopriL 20 MG TAB PO SCH (08:20)
[2021-08-10] MEDS: INSULIN ASPART (NovoLOG) 100 UNIT/ML VIAL SQ SCH ×7 (08:21→20:17)
[2021-08-10] MEDS: INSULIN DETEMIR (LEVEMIR) 100 UNIT/ML SYR SQ SCH (08:21)
[2021-08-10 12:39] LABS: Glucose,Whole Blood 259 mg/dL (75-99)
[2021-08-10 17:28] LABS: Glucose,Whole Blood 220 mg/dL (75-99)
[2021-08-10] MEDS: traZODone HCL 100 MG TAB PO SCH (20:03)
[2021-08-10 20:15] LABS: Glucose,Whole Blood 268 mg/dL (75-99)
[2021-08-10 21:01] VITALS: RESP 16
[2021-08-11] MEDS: HYDROcodone/APAP 5-325MG 1 EACH TAB PO PRN ×2 (03:14→09:05)
--- NOTE | 2021-08-11 04:46 | P.PN ---
Subjective Progress Note Date: 08/10/21 This is a 50-year-old female who was recently admitted for hyperglycemia and chronic pancreatitis and is being closely monitored. Patient follows with Dr. Cerda in the outpatient setting. Patient has an extensive past medical history of noncompliance and multiple hospitalizations for this. On Exam today patient reports to not sleeping very well and having continued abdominal pain. WBC this morning shows 11.9 which is improved from 14.0, with hemoglobin of 9.4, sodium mildly low at 132 with a potassium of 4.9 current creatinine is 0.85 and magnesium is 2.0. Blood sugars into threes to 400s. Patient currently maintained on pre-meal insulin along with long-acting and will also add sliding scale and continue and increase the dose of pre-meal and long-acting as well. Patient is afebrile patient denies any chest pain or shortness of breath. No reports of nausea or vomiting and patient is tolerating diet. 08/10/2021 Patient is seen in follow up today and being monitored closely. Patient reports to having some relief in abdominal pain and was able to sleep somewhat better last night. Patient blood sugars continue to be elevated although somewhat improved and will adjust pre-meal insulin to 25 units TID and monitor closely. Patient is afebrile. Patient denies chest pain or shortness of breath. Patient is tolerating oral diet with no reports of nausea or vomiting noted. Review of systems: Constitutional: No reports of fatigue, fever, or chills Cardiovascular: No reports of chest pain or palpitations Respiratory: No reports of shortness of breath or cough GI: No reports of nausea, no reports of of vomiting, patient reports to abdominal pain generalized with some improvement : No reports of dysuria or retention Neurovascular: reports of generalized weakness All medications have been reviewed Active Medications Hydrocodone Bitart/Acetaminophen (Hydrocodone/Apap 5-325mg 1 Each Tab) 1 each PO Q6HR PRN PRN Reason: Pain Last Admin: 08/11/21 03:14 Dose: 1 each Documented by: Albuterol Sulfate (Albuterol Nebulized 2.5 Mg/3 Ml) 2.5 mg INHALATION RT-QID PRN PRN Reason: Shortness Of Breath Insulin Aspart (Insulin Aspart (Novolog) 100 Unit/Ml Vial) 0 unit SQ [facility]; Protocol Last Admin: 08/10/21 20:17 Dose: 6 unit Documented by: Insulin Aspart (Insulin Aspart (Novolog) 100 Unit/Ml Vial) 25 unit SQ AC-TID [facility] Insulin Detemir (Insulin Detemir (Levemir) 100 Unit/Ml Syr) 60 unit SQ DAILY@0700 [facility] Last Admin: 08/10/21 08:21 Dose: 60 unit Documented by: Lisinopril (Lisinopril 20 Mg Tab) 40 mg PO DAILY [facility] Last Admin: 08/10/21 08:20 Dose: 40 mg Documented by: Metformin HCl (Metformin 500 Mg Tab) 500 mg PO DAILY [facility] Last Admin: 08/10/21 08:20 Dose: 500 mg Documented by: Trazodone HCl (Trazodone Hcl 100 Mg Tab) 100 mg PO HS [facility] Last Admin: 08/10/21 20:03 Dose: 100 mg Documented by: Trazodone HCl (Trazodone Hcl 50 Mg Tab) 50 mg PO HS PRN PRN Reason: Insomnia PHYSICAL EXAMINATION: GENERAL: The patient is alert and oriented x4, Well developed, well nourished. Morbidly obese HEENT: Pupils are round and equally reacting to light. EOMI. no scleral icterus. No conjunctival pallor. Normocephalic, atraumatic. No pharyngeal erythema. No thyromegaly. CARDIOVASCULAR: S1 and S2 muffled PULMONARY: diminished breath sounds bilaterally with no wheezing or rhonchi noted. ABDOMEN: soft. non-tender on exam. obese. non-distended, normoactive bowel sounds. No palpable organomegaly. MUSCULOSKELETAL: No joint swelling or deformity. EXTREMITIES: No cyanosis, clubbing, or pedal edema. NEUROLOGICAL: Gross neurological examination did not reveal any focal deficits. Diffuse weakness SKIN: No rashes. Assessment: Diabetes mellitus type 2, insulin dependent, uncontrolled with hyperglycemia Chronic pancreatitis Morbid obesity Hypertension Continued ongoing nicotine abuse GI prophylaxis DVT prophylaxis Full code Plan: Recommend to continue with current medications and management. Multiple adjus tments made to blood sugar regimen as patient's blood sugars continue to be elevated although with some improvement and will adjust pre-meal to 25 units TID and monitor closely overnight. Discussed with patient about strict consistent carb and diabetic diet and medication adherence. Encouraged increased activity and getting up out of the bed and sitting in the chair more often. She follows with Dr. Cerda and has had multiple hospitalizations for noncompliance secondary to her chronic pancreatitis and poor diabetes management. Dietitian is consulted. Adjustments have been made to pre-meal insulin and recommend to continue with Accu-Cheks before meals and at bedtime. Due to multiple complex medical issues, prognosis is guarded. Possible discharge in 24 hours. The impression and plan of care has been dictated by Shalini Ramirez, nurse practitioner as directed. MD Karl I have performed a history and examination and MDM of this patient, discussed the same with the dictator, and agree with the dictator's assessment and plan as written ,documented as a scribe. Based on total visit time, I have performed more than 50% of the visit. Any additional findings or plans will be noted. Objective - Vital Signs Vital signs: Vital Signs Temp 97.7 F 08/10/21 05:00 Pulse 63 08/10/21 05:00 Resp 18 08/10/21 05:00 BP 107/58 08/10/21 05:00 Pulse Ox 93 L 08/10/21 05:00 Intake & Output 08/09/21 08/10/21 08/10/21 18:59 06:59 18:59 Intake Total 500 Balance 500 Weight 102.965 kg Intake: Oral 500 Other: Voiding Method Toilet Toilet # Voids 1 2 - Labs CBC & Chem 7: 08/10/21 05:41 08/10/21 05:41 Labs: Abnormal Lab Results - Last 24 Hours (Table) 08/09/21 08/09/21 08/09/21 Range/Units 11:11 11:11 11:47 WBC 11.9 H (3.8-10.6) k/uL RBC (3.80-5.40) m/uL Hgb 9.4 L (11.4-16.0) gm/dL Hct 32.1 L (34.0-46.0) % MCH 24.8 L (25.0-35.0) pg MCHC 29.4 L (31.0-37.0) g/dL RDW 17.4 H (11.5-15.5) % Plt Count 743 H (150-450) k/uL Neutrophils # 9.7 H (1.3-7.7) k/uL Sodium 132 L (137-145) mmol/L BUN 18 H (7-17) mg/dL Glucose 457 H (74-99) mg/dL POC Glucose (mg/dL) 432 H (75-99) mg/dL Calcium 8.3 L (8.4-10.2) mg/dL 08/09/21 08/09/21 08/10/21 Range/Units 17:26 19:59 05:41 WBC (3.8-10.6) k/uL RBC 3.56 L (3.80-5.40) m/uL Hgb 8.5 L (11.4-16.0) gm/dL Hct 30.2 L (34.0-46.0) % MCH 23.9 L (25.0-35.0) pg MCHC 28.1 L (31.0-37.0) g/dL RDW 17.4 H (11.5-15.5) % Plt Count 642 H (150-450) k/uL Neutrophils # (1.3-7.7) k/uL Sodium (137-145) mmol/L BUN (7-17) mg/dL Glucose (74-99) mg/dL POC Glucose (mg/dL) 264 H 233 H (75-99) mg/dL Calcium (8.4-10.2) mg/dL 08/10/21 08/10/21 Range/Units 05:41 07:13 WBC (3.8-10.6) k/uL RBC (3.80-5.40) m/uL Hgb (11.4-16.0) gm/dL Hct (34.0-46.0) % MCH (25.0-35.0) pg MCHC (31.0-37.0) g/dL RDW (11.5-15.5) % Plt Count (150-450) k/uL Neutrophils # (1.3-7.7) k/uL Sodium 136 L (137-145) mmol/L BUN 20 H (7-17) mg/dL Glucose 310 H (74-99) mg/dL POC Glucose (mg/dL) 327 H (75-99) mg/dL Calcium 8.3 L (8.4-10.2) mg/dL
[2021-08-11 07:23] LABS: Glucose,Whole Blood 342 mg/dL (75-99)
[2021-08-11] MEDS: INSULIN ASPART (NovoLOG) 100 UNIT/ML VIAL SQ SCH ×4 (07:48→12:56)
[2021-08-11] MEDS: INSULIN DETEMIR (LEVEMIR) 100 UNIT/ML SYR SQ SCH (07:48)
[2021-08-11] MEDS: lisinopriL 20 MG TAB PO SCH (07:49)
[2021-08-11] MEDS: metFORMIN 500 MG TAB PO SCH (07:50)
[2021-08-11 12:15] VITALS: BP 111/66; PULSE 74; TEMP 98.5
[2021-08-11 12:27] LABS: Glucose,Whole Blood 305 mg/dL (75-99)
--- NOTE | 2021-08-11 13:55 | P.DS ---
Providers Date of admission: 08/07/21 21:14 Expected date of discharge: 08/11/21 Attending physician: Guillermo Cerda Primary care physician: Guillermo Cerda Hospital Course: Final diagnosis Diabetes mellitus type 2, insulin dependent, uncontrolled with hyperglycemia Chronic pancreatitis Morbid obesity Hypertension Continued ongoing nicotine abuse Noncompliance with medications GI prophylaxis DVT prophylaxis Full code Discharge disposition Patient is being discharged in a stable condition with guarded prognosis to home. Patient will follow-up with Dr. Cerda in the outpatient setting upon discharge. Patient is to follow up with endocrine in the outpatient setting. Prescription provided for insulin adjustments on discharge. Total time taken is greater than 35 minutes. Hospital course This is a 50-year-old female who was recently admitted noncompliance to medication. Hyperglycemia with a blood sugar over 900 and some abdominal pain. Patient follows with Dr. Cerda in the outpatient setting and has had multiple hospitalizations of noncompliance for hyperglycemia and also chronic pancreatitis. This morning in follow-up patient's abdominal pain is improved and is tolerating diet and blood sugars were controlled. Patient will continue with sliding scale along with pre-meal and long acting insulin and medications have been adjusted as mentioned below. Strongly encourage the patient to continue monitoring blood sugars before meals and at bedtime and keep a diary for primary care follow-up. Patient provided resources to follow up with endocrine in the outpatient setting. Patient has had multiple hospitalizations due to noncompliance and has poor social support in the outpatient setting. Currently no reports of chest pain, shortness of breath, or palpitations. Patient is afebrile. No reports of nausea or vomiting and patient is tolerating diet. Patient will be discharged home today. Guarded prognosis. On exam vital signs are stable. Temp is 98.5F, pulse is 74, respirations are 16, blood pressure is 111/66, and patient is on room air. Cardio S1, S2 are muffled. Respiratory system shows diminished breath sounds at the bases with no wheezing or rhonchi noted. Abdomen is soft and obese, and nontender. Nervous system shows no focal deficits. Please refer to medication reconciliation sheet for a list of medications. The impression and plan of care has been dictated by Shalini Ramirez, Nurse Practitioner as directed. Dr. Toño MD I have performed a history and examination and MDM of this patient, discussed the same with the dictator, and agree with the dictator's assessment and plan as written ,documented as a scribe. Based on total visit time, I have performed more than 50% of the visit. Patient Condition at Discharge: Stable Plan - Discharge Summary Discharge Rx Participant: No New Discharge Prescriptions: New HYDROcodone/APAP 5-325MG [[place] 5-325] 1 each PO Q6HR PRN #6 tab PRN Reason: Pain INSULIN ASPART (NovoLOG) [NovoLOG (formulary)] 5 unit SQ ACHS 30 Days #5 each Continue Fenofibrate [Lofibra] 160 mg PO DAILY #30 tab Atorvastatin [Lipitor] 80 mg PO HS metFORMIN HCL [Glucophage] 500 mg PO DAILY Ergocalciferol (Vitamin D2) [Drisdol (50,000 Iu)] 1,250 mcg PO TU hydrOXYzine HCL [Atarax] 25 mg PO TID PRN #15 tab PRN Reason: Itching lisinopriL 40 mg PO DAILY traZODone HCL 50 - 100 mg PO HS PRN PRN Reason: Insomnia Esomeprazole Magnesium [NexIUM] 20 mg PO DAILY Albuterol Inhaler [Ventolin Hfa Inhaler] 2 puff INHALATION RT-QID PRN PRN Reason: Shortness Of Breath Changed INSULIN ASPART (NovoLOG) [NovoLOG (formulary)] 25 unit SQ AC-TID 30 Days #5 each Insulin Detemir (Levemir) [Levemir] 60 unit SQ DAILY@0700 30 Days #5 dispenser Discharge Medication List Fenofibrate [Lofibra] 160 mg PO DAILY #30 tab 03/23/19 [Rx] Atorvastatin [Lipitor] 80 mg PO HS 06/25/19 [History] lisinopriL 40 mg PO DAILY 09/24/20 [History] metFORMIN HCL [Glucophage] 500 mg PO DAILY 09/24/20 [History] traZODone HCL 50 - 100 mg PO HS PRN 01/11/21 [History] Ergocalciferol (Vitamin D2) [Drisdol (50,000 Iu)] 1,250 mcg PO TU 03/03/21 [History] Esomeprazole Magnesium [NexIUM] 20 mg PO DAILY 03/28/21 [History] hydrOXYzine HCL [Atarax] 25 mg PO TID PRN #15 tab 06/04/21 [Rx] Albuterol Inhaler [Ventolin Hfa Inhaler] 2 puff INHALATION RT-QID PRN 07/28/21 [History] HYDROcodone/APAP 5-325MG [[place] 5-325] 1 each PO Q6HR PRN #6 tab 08/11/21 [Rx] INSULIN ASPART (NovoLOG) [NovoLOG (formulary)] 5 unit SQ ACHS 30 Days #5 each 08/11/21 [Rx] INSULIN ASPART (NovoLOG) [NovoLOG (formulary)] 25 unit SQ AC-TID 30 Days #5 each 08/11/21 [Rx] Insulin Detemir (Levemir) [Levemir] 60 unit SQ DAILY@0700 30 Days #5 dispenser 08/11/21 [Rx] Follow up Appointment(s)/Referral(s): Guillermo Cerda MD [Primary Care Provider] - 1-2 days (August 17 at 1230 pm) Williams Valdez MD [REFERRING] - 1 Week (call office when re-opens on Saturday to schedule appointment) Patient Instructions/Handouts: Hydrocodone/Acetaminophen (By mouth), Insulin Aspart, Recombinant (By injection) Activity/Diet/Wound Care/Special Instructions: Activity Limited until follow-up Follow-up with primary care provider on discharge Follow up with endocrine outpatient Continue taking medications as prescribed Continue to monitor Accu-Cheks before meals and at bedtime and keep a diary of blood sugar readings NovoLog sliding scale 0-150 equals 0 units 151-200 equals 2 units 201-250 equals 4 units 251-300 equals 6 units 301-350 equals 8 units 351-400 equals 10 units Please notify provider if blood sugar is 400 or above Continue using pre-meal insulin along with sliding scale and long-acting and follow-up with primary care provider along with endocrine this week Continue with consistent carb heart healthy diet Discharge Disposition: HOME SELF-CARE
== END 2021-08-11 13:45 | disposition home or self-care (01) | DRG 638 ==
LOC: EC 18:56 → 5NMEDONC 21:14
PROVIDERS: ADMIT Family Medicine; ATTEND Family Medicine
DX: E11.65 Type 2 diabetes mellitus with hyperglycemia (principal); K86.1 Other chronic pancreatitis; Z68.41 Body mass index [BMI] 40.0-44.9, adult; E66.01 Morbid (severe) obesity due to excess calories; E78.1 Pure hyperglyceridemia; E78.5 Hyperlipidemia, unspecified; I10 Essential (primary) hypertension; G89.29 Other chronic pain; M54.50 Low back pain, unspecified; Z79.4 Long term (current) use of insulin; Z87.891 Personal history of nicotine dependence; Z91.19 Patient's noncompliance with other medical treatment and regimen; Z86.19 Personal history of other infectious and parasitic diseases; T38.3X6A Underdosing of insulin and oral hypoglycemic [antidiabetic] drugs, initial encounter; Z91.128 Patient's intentional underdosing of medication regimen for other reason; Z28.311 Partially vaccinated for COVID-19; Z20.822 Contact with and (suspected) exposure to COVID-19; K21.9 Gastro-esophageal reflux disease without esophagitis; Z55.0 Illiteracy and low-level literacy; Z98.51 Tubal ligation status; Z98.890 Other specified postprocedural states; Z88.1 Allergy status to other antibiotic agents; Z79.899 Other long term (current) drug therapy; Z87.440 Personal history of urinary (tract) infections; Z79.84 Long term (current) use of oral hypoglycemic drugs
CPT/HCPCS: 36415; 71046; 80048; 80051; 80053; 81003; 82009; 82565; 82947; 83605; 83735; 84100; 84484; 84520; 85025; 85610; 85730; 87635; 93005; 96361; 96365; 96366; 96375; 99285

== ENCOUNTER 2021-08-12 12:45 | Observation (INO) | payer MEDICARE ==
[2021-08-12] MEDS ORDERED: SODIUM CHLORIDE 0.9% 1,000 ML IV STA (21:03)
[2021-08-12] MEDS ORDERED: ONDANSETRON 4 MG/2 ML VIAL IVP STA (21:07)
[2021-08-12] MEDS ORDERED: ACETAMINOPHEN TAB 325 MG TAB PO STA (21:19)
[2021-08-12 21:21] LABS: Glucose,Whole Blood 342 mg/dL (75-99)
[2021-08-12] MEDS ORDERED: INSULIN REGULAR 100 UNIT/ML VIAL (IV) IV ONE (21:45)
--- NOTE | 2021-08-12 22:00 | ED ---
Abdominal Pain HPI - General Source: patient Mode of arrival: ambulatory Limitations: no limitations <Anastasiia Ramirez - Last Filed: 08/12/21 23:55> <Hemanth Tobin - Last Filed: 08/13/21 00:17> - General Chief Complaint: Abdominal Pain Stated Complaint: Hyperglycemia Time Seen by Provider: 08/12/21 20:52 - History of Present Illness Initial Comments: Patient is a 50-year-old female presenting with chief complaint of "I feel like my sugar is too high". Patient states that today she began to feel tired, l ightheaded, nauseous, which usually indicates to her that her blood sugar is too high. She is also complaining of diffuse abdominal discomfort. Also complaining of dysuria. Patient is a type II diabetic controlled by insulin. She has a history of pancreatitis. Patient denies any chest pain, shortness of breath, vomiting, cough, hemoptysis, falls, head injury, palpitations, weakness, fever, chills, hematuria, urgency, frequency. (Anastasiia Ramirez) - Related Data Home Medications Medication Instructions Recorded Confirmed Atorvastatin [Lipitor] 80 mg PO HS 06/25/19 08/12/21 lisinopriL 40 mg PO DAILY 09/24/20 08/12/21 metFORMIN HCL [Glucophage] 500 mg PO DAILY 09/24/20 08/12/21 traZODone HCL 50 - 100 mg PO HS PRN 01/11/21 08/12/21 Ergocalciferol (Vitamin D2) 1,250 mcg PO TU 03/03/21 08/12/21 [Drisdol (50,000 Iu)] Esomeprazole Magnesium [NexIUM] 20 mg PO DAILY 03/28/21 08/12/21 Albuterol Inhaler [Ventolin Hfa 2 puff INHALATION RT-QID PRN 07/28/21 08/12/21 Inhaler] HYDROcodone/APAP 5-325MG [[place] 1 tab PO Q6HR PRN 08/12/21 08/12/21 5-325] Previous Rx's Medication Instructions Recorded Fenofibrate [Lofibra] 160 mg PO DAILY #30 tab 03/23/19 hydrOXYzine HCL [Atarax] 25 mg PO TID PRN #15 tab 06/04/21 INSULIN ASPART (NovoLOG) [NovoLOG 5 unit SQ ACHS 30 Days #5 each 08/11/21 (formulary)] INSULIN ASPART (NovoLOG) [NovoLOG 25 unit SQ AC-TID 30 Days #5 each 08/11/21 (formulary)] Insulin Detemir (Levemir) [Levemir] 60 unit SQ DAILY@0700 30 Days #5 08/11/21 dispenser Allergies Allergy/AdvReac Type Severity Reaction Status Date / Time levofloxacin [From Levaquin] Allergy Rash/Hives Verified 08/12/21 21:45 Review of Systems ROS Other: All systems not noted in ROS Statement are negative. <Anastasiia Ramirez - Last Filed: 08/12/21 23:55> ROS Other: All systems not noted in ROS Statement are negative. <Hemanth Tobin - Last Filed: 08/13/21 00:17> ROS Statement: Those systems with pertinent positive or pertinent negative responses have been documented in the HPI. Past Medical History Past Medical History: Diabetes Mellitus, GERD/Reflux, Hyperlipidemia, Hypertension, Syncope Additional Past Medical History / Comment(s): Pt recently admitted to [facility] on 07/21/21 with uncontrolled IDDM and hyperkalemia. Other hx: Recurrent pancreatitis, hypertriglyceridemia, elevated lipase, IDDM type II, UTI, chronic low back pain, bulging discs, dental abscesses in past. History of Any Multi-Drug Resistant Organisms: None Reported Past Surgical History: Tubal Ligation Additional Past Surgical History / Comment(s): Age 7 had VSD repair Past Anesthesia/Blood Transfusion Reactions: No Reported Reaction Past Psychological History: No Psychological Hx Reported Smoking Status: Former smoker Past Alcohol Use History: None Reported Past Drug Use History: None Reported - Past Family History Mother Family Medical History: No Reported History Additional Family Medical History / Comment(s): Mother was healthy. She is , pt cannot recall cause of . Father Family Medical History: Pneumonia Additional Family Medical History / Comment(s): Father at the age of 67yrs from pneumonia <Anastasiia Ramirez - Last Filed: 08/12/21 23:55> General Exam Limitations: no limitations General appearance: alert, in no apparent distress Head exam: Present: atraumatic, normocephalic, normal inspection Eye exam: Present: normal appearance, EOMI. Absent: scleral icterus Neck exam: Present: normal inspection Respiratory exam: Present: normal lung sounds bilaterally. Absent: respiratory distress, wheezes, rales, rhonchi, stridor Cardiovascular Exam: Present: regular rate, normal rhythm, normal heart sounds. Absent: systolic murmur, diastolic murmur, rubs, gallop, clicks GI/Abdominal exam: Present: soft, tenderness (dull discomfort diffusely t hroughout abdomen), normal bowel sounds. Absent: distended, guarding, rebound, rigid Back exam: Present: normal inspection, paraspinal tenderness. Absent: CVA tenderness (R), CVA tenderness (L) Neurological exam: Present: alert, oriented X3, CN II-XII intact Psychiatric exam: Present: normal affect, normal mood Skin exam: Present: warm, dry, intact, normal color. Absent: rash <Anastasiia Ramirez - Last Filed: 08/12/21 23:55> General appearance: alert, in no apparent distress Head exam: Present: atraumatic, normocephalic, normal inspection Eye exam: Present: normal appearance, PERRL, EOMI. Absent: scleral icterus, conjunctival injection, periorbital swelling ENT exam: Present: normal exam, mucous membranes moist Neck exam: Present: normal inspection. Absent: tenderness, meningismus, lymphadenopathy Respiratory exam: Present: normal lung sounds bilaterally. Absent: respiratory distress, wheezes, rales, rhonchi, stridor Cardiovascular Exam: Present: regular rate, normal rhythm, normal heart sounds. Absent: systolic murmur, diastolic murmur, rubs, gallop, clicks GI/Abdominal exam: Present: soft, normal bowel sounds. Absent: distended, tenderness, guarding, rebound, rigid Extremities exam: Present: normal inspection, full ROM, normal capillary refill. Absent: tenderness, pedal edema, joint swelling, calf tenderness Back exam: Present: normal inspection Neurological exam: Present: alert, oriented X3, CN II-XII intact Psychiatric exam: Present: normal affect, normal mood Skin exam: Present: warm, dry, intact, normal color. Absent: rash <Hemanth Tobin - Last Filed: 08/13/21 00:17> Course Vital Signs 08/12/21 08/12/21 08/12/21 12:55 21:17 23:41 Temperature 99.4 F 100.1 F H Pulse Rate 82 84 84 Respiratory 20 18 Rate Blood Pressure 123/54 111/76 O2 Sat by Pulse 96 95 Oximetry 08/12/21 23:46 Temperature Pulse Rate 88 Respiratory Rate Blood Pressure O2 Sat by Pulse Oximetry Medical Decision Making - Lab Data Result diagrams: 08/12/21 21:40 08/12/21 21:40 <Anastasiia Ramirez - Last Filed: 08/12/21 23:55> - Lab Data Result diagrams: 08/12/21 21:40 08/12/21 21:40 - EKG Data -: EKG Interpreted by Me (EKG shows sinus rhythm 79 SC 147 QRS 90 QTC 392) <Hemanth Tobin - Last Filed: 08/13/21 00:17> - Medical Decision Making Patient is a 50 year old female presenting with CC of abdominal pain and "I feel like my sugar is too high". Patient has a history of pancreatitis, she has been admitted multiple times to this hospital for pancreatitis, hyperkalemia, hyperglycemia. Patient states the pain is dull and diffuse throughout the abdomen. She also admits to dysuria. On exam abdomen is diffusely tender, no guarding or rebound, patient states that it is not a sharp pain but rather discomfort. Normal bowel sounds in all 4 quadrants, abdomen is soft, nondistended. Lungs and heart are clear to auscultation. No focal neurological deficits.Patient is mildly febrile with temperature of 100.1. She is given acetaminophen. Lab work is remarkable for leukocytosis, hyperkalemia with a potassium of 5.4, hyperglycemia with glucose of 358, elevated lipase of 591. Urine appears positive for UTI, positive nitrites, positive leukocytes, many urine bacteria, patient given Rocephin. Urine is negative for ketones and acetone is negative. Patient is negative for coronavirus and influenza. She is given IV fluids, insulin, Zofran, sodium bicarb, calcium gluconate, IV albuterol. Patient will be admitted to observation for hyperkalemia, hyperglycemia, pancreatitis. I spoke with Miguel Kim from [facility] who agreed to admit the patient. I informed the patient of the plan, she was agreeable. I discussed this case with my attending Dr. Tobin. (Anastasiia Ramirez) 50 female the admitted for multiple issues. Mainly hyperkalemia but also fever pancreatitis elevated blood sugar and urinary tract infection. (Britt song,Hemanth Henry) - Lab Data Lab Results 08/12/21 08/12/21 08/12/21 Range/Units 21:20 21:40 21:40 WBC 14.3 H (3.8-10.6) k/uL RBC 4.20 (3.80-5.40) m/uL Hgb 9.9 L (11.4-16.0) gm/dL Hct 34.6 (34.0-46.0) % MCV 82.4 (80.0-100.0) fL MCH 23.7 L (25.0-35.0) pg MCHC 28.7 L (31.0-37.0) g/dL RDW 17.4 H (11.5-15.5) % Plt Count 945 H (150-450) k/uL MPV 7.4 Neutrophils % 71 % Lymphocytes % 20 % Monocytes % 6 % Eosinophils % 2 % Basophils % 1 % Neutrophils # 10.1 H (1.3-7.7) k/uL Lymphocytes # 2.8 (1.0-4.8) k/uL Monocytes # 0.9 (0-1.0) k/uL Eosinophils # 0.3 (0-0.7) k/uL Basophils # 0.1 (0-0.2) k/uL Hypochromasia Marked Anisocytosis Slight Microcytosis Slight PT 10.5 (9.0-12.0) sec INR 1.0 (<1.2) APTT 22.4 (22.0-30.0) sec VBG pH (7.31-7.41) VBG pCO2 (37-51) mmHg VBG HCO3 (24-28) mmol/L Sodium (137-145) mmol/L Potassium (3.5-5.1) mmol/L Chloride (98-107) mmol/L Carbon Dioxide (22-30) mmol/L Anion Gap mmol/L BUN (7-17) mg/dL Creatinine (0.52-1.04) mg/dL Est GFR (CKD-EPI)AfAm (>60 ml/min/1.73 sqM) Est GFR (CKD-EPI)NonAf (>60 ml/min/1.73 sqM) Glucose (74-99) mg/dL POC Glucose (mg/dL) 342 H (75-99) mg/dL POC Glu Auto Vinyl Top Installer ID Christiana Saavedra Plasma Lactic Acid [place] (0.7-2.0) mmol/L Calcium (8.4-10.2) mg/dL Phosphorus (2.5-4.5) mg/dL Magnesium (1.6-2.3) mg/dL Total Bilirubin (0.2-1.3) mg/dL AST (14-36) U/L ALT (4-34) U/L Alkaline Phosphatase (38-126) U/L Troponin I (0.000-0.034) ng/mL Total Protein (6.3-8.2) g/dL Albumin (3.5-5.0) g/dL Amylase (30-110) U/L Lipase (23-300) U/L Urine Color Urine Appearance (Clear) Urine pH (5.0-8.0) Ur Specific [place] (1.001-1.035) Urine Protein (Negative) Urine Glucose (UA) (Negative) Urine Ketones (Negative) Urine Blood (Negative) Urine Nitrite (Negative) Urine Bilirubin (Negative) Urine Urobilinogen (<2.0) mg/dL Ur Leukocyte Esterase (Negative) Urine RBC (0-5) /hpf Urine WBC (0-5) /hpf Urine WBC Clumps (None) /hpf Ur Squamous Epith Cells (0-4) /hpf Urine Bacteria (None) /hpf Hyaline Casts (0-2) /lpf Urine Mucus (None) /hpf Urine HCG, Qual (Not Detectd) Acetone, Qual (Negative) Coronavirus (PCR) (Not Detectd) Influenza Type A RNA (Not Detectd) Influenza Type B (PCR) (Not Detectd) 08/12/21 08/12/21 08/12/21 Range/Units 21:40 21:40 22:10 WBC (3.8-10.6) k/uL RBC (3.80-5.40) m/uL Hgb (11.4-16.0) gm/dL Hct (34.0-46.0) % MCV (80.0-100.0) fL MCH (25.0-35.0) pg MCHC (31.0-37.0) g/dL RDW (11.5-15.5) % Plt Count (150-450) k/uL MPV Neutrophils % % Lymphocytes % % Monocytes % % Eosinophils % % Basophils % % Neutrophils # (1.3-7.7) k/uL Lymphocytes # (1.0-4.8) k/uL Monocytes # (0-1.0) k/uL Eosinophils # (0-0.7) k/uL Basophils # (0-0.2) k/uL Hypochromasia Anisocytosis Microcytosis PT (9.0-12.0) sec INR (<1.2) APTT (22.0-30.0) sec VBG pH (7.31-7.41) VBG pCO2 (37-51) mmHg VBG HCO3 (24-28) mmol/L Sodium 134 L (137-145) mmol/L Potassium 5.4 H (3.5-5.1) mmol/L Chloride 99 (98-107) mmol/L Carbon Dioxide 25 (22-30) mmol/L Anion Gap 10 mmol/L BUN 22 H (7-17) mg/dL Creatinine 1.01 (0.52-1.04) mg/dL Est GFR (CKD-EPI)AfAm 76 (>60 ml/min/1.73 sqM) Est GFR (CKD-EPI)NonAf 66 (>60 ml/min/1.73 sqM) Glucose 358 H (74-99) mg/dL POC Glucose (mg/dL) (75-99) mg/dL POC Glu Auto Vinyl Top Installer ID Plasma Lactic Acid [place]on (0.7-2.0) mmol/L Calcium 9.4 (8.4-10.2) mg/dL Phosphorus 4.5 (2.5-4.5) mg/dL Magnesium 1.6 (1.6-2.3) mg/dL Total Bilirubin 0.6 (0.2-1.3) mg/dL AST 50 H (14-36) U/L ALT 26 (4-34) U/L Alkaline Phosphatase 198 H (38-126) U/L Troponin I <0.012 (0.000-0.034) ng/mL Total Protein 6.9 (6.3-8.2) g/dL Albumin 3.8 (3.5-5.0) g/dL Amylase 54 (30-110) U/L Lipase 591 H (23-300) U/L Urine Color Yellow Urine Appearance Turbid H (Clear) Urine pH 5.5 (5.0-8.0) Ur Specific [place] 1.020 (1.001-1.035) Urine Protein 2+ H (Negative) Urine Glucose (UA) 1+ H (Negative) Urine Ketones Negative (Negative) Urine Blood Negative (Negative) Urine Nitrite Positive H (Negative) Urine Bilirubin Negative (Negative) Urine Urobilinogen 2.0 (<2.0) mg/dL Ur Leukocyte Esterase Moderate H (Negative) Urine RBC 1 (0-5) /hpf Urine WBC 62 H (0-5) /hpf Urine WBC Clumps Moderate H (None) /hpf Ur Squamous Epith Cells 34 H (0-4) /hpf Urine Bacteria Many H (None) /hpf Hyaline Casts 3 H (0-2) /lpf Urine Mucus Occasional H (None) /hpf Urine HCG, Qual (Not Detectd) Acetone, Qual Negative (Negative) Coronavirus (PCR) (Not Detectd) Influenza Type A RNA (Not Detectd) Influenza Type B (PCR) (Not Detectd) 08/12/21 08/12/21 08/12/21 Range/Units 22:10 22:23 22:23 WBC (3.8-10.6) k/uL RBC (3.80-5.40) m/uL Hgb (11.4-16.0) gm/dL Hct (34.0-46.0) % MCV (80.0-100.0) fL MCH (25.0-35.0) pg MCHC (31.0-37.0) g/dL RDW (11.5-15.5) % Plt Count (150-450) k/uL MPV Neutrophils % % Lymphocytes % % Monocytes % % Eosinophils % % Basophils % % Neutrophils # (1.3-7.7) k/uL Lymphocytes # (1.0-4.8) k/uL Monocytes # (0-1.0) k/uL Eosinophils # (0-0.7) k/uL Basophils # (0-0.2) k/uL Hypochromasia Anisocytosis Microcytosis PT (9.0-12.0) sec INR (<1.2) APTT (22.0-30.0) sec VBG pH (7.31-7.41) VBG pCO2 (37-51) mmHg VBG HCO3 (24-28) mmol/L Sodium (137-145) mmol/L Potassium (3.5-5.1) mmol/L Chloride (98-107) mmol/L Carbon Dioxide (22-30) mmol/L Anion Gap mmol/L BUN (7-17) mg/dL Creatinine (0.52-1.04) mg/dL Est GFR (CKD-EPI)AfAm (>60 ml/min/1.73 sqM) Est GFR (CKD-EPI)NonAf (>60 ml/min/1.73 sqM) Glucose (74-99) mg/dL POC Glucose (mg/dL) (75-99) mg/dL POC Glu Auto Vinyl Top Installer ID Plasma Lactic Acid [place]on 1.7 (0.7-2.0) mmol/L Calcium (8.4-10.2) mg/dL Phosphorus (2.5-4.5) mg/dL Magnesium (1.6-2.3) mg/dL Total Bilirubin (0.2-1.3) mg/dL AST (14-36) U/L ALT (4-34) U/L Alkaline Phosphatase (38-126) U/L Troponin I (0.000-0.034) ng/mL Total Protein (6.3-8.2) g/dL Albumin (3.5-5.0) g/dL Amylase (30-110) U/L Lipase (23-300) U/L Urine Color Urine Appearance (Clear) Urine pH (5.0-8.0) Ur Specific [place] (1.001-1.035) Urine Protein (Negative) Urine Glucose (UA) (Negative) Urine Ketones (Negative) Urine Blood (Negative) Urine Nitrite (Negative) Urine Bilirubin (Negative) Urine Urobilinogen (<2.0) mg/dL Ur Leukocyte Esterase (Negative) Urine RBC (0-5) /hpf Urine WBC (0-5) /hpf Urine WBC Clumps (None) /hpf Ur Squamous Epith Cells (0-4) /hpf Urine Bacteria (None) /hpf Hyaline Casts (0-2) /lpf Urine Mucus (None) /hpf Urine HCG, Qual Not Detected (Not Detectd) Acetone, Qual (Negative) Coronavirus (PCR) (Not Detectd) Influenza Type A RNA Not Detected (Not Detectd) Influenza Type B (PCR) Not Detected (Not Detectd) 08/12/21 08/12/21 Range/Units 22:23 23:00 WBC (3.8-10.6) k/uL RBC (3.80-5.40) m/uL Hgb (11.4-16.0) gm/dL Hct (34.0-46.0) % MCV (80.0-100.0) fL MCH (25.0-35.0) pg MCHC (31.0-37.0) g/dL RDW (11.5-15.5) % Plt Count (150-450) k/uL MPV Neutrophils % % Lymphocytes % % Monocytes % % Eosinophils % % Basophils % % Neutrophils # (1.3-7.7) k/uL Lymphocytes # (1.0-4.8) k/uL Monocytes # (0-1.0) k/uL Eosinophils # (0-0.7) k/uL Basophils # (0-0.2) k/uL Hypochromasia Anisocytosis Microcytosis PT (9.0-12.0) sec INR (<1.2) APTT (22.0-30.0) sec VBG pH 7.44 H (7.31-7.41) VBG pCO2 34 L (37-51) mmHg VBG HCO3 23 L (24-28) mmol/L Sodium (137-145) mmol/L Potassium (3.5-5.1) mmol/L Chloride (98-107) mmol/L Carbon Dioxide (22-30) mmol/L Anion Gap mmol/L BUN (7-17) mg/dL Creatinine (0.52-1.04) mg/dL Est GFR (CKD-EPI)AfAm (>60 ml/min/1.73 sqM) Est GFR (CKD-EPI)NonAf (>60 ml/min/1.73 sqM) Glucose (74-99) mg/dL POC Glucose (mg/dL) (75-99) mg/dL POC Glu Auto Vinyl Top Installer ID Plasma Lactic Acid [place] (0.7-2.0) mmol/L Calcium (8.4-10.2) mg/dL Phosphorus (2.5-4.5) mg/dL Magnesium (1.6-2.3) mg/dL Total Bilirubin (0.2-1.3) mg/dL AST (14-36) U/L ALT (4-34) U/L Alkaline Phosphatase (38-126) U/L Troponin I (0.000-0.034) ng/mL Total Protein (6.3-8.2) g/dL Albumin (3.5-5.0) g/dL Amylase (30-110) U/L Lipase (23-300) U/L Urine Color Urine Appearance (Clear) Urine pH (5.0-8.0) Ur Specific [place] (1.001-1.035) Urine Protein (Negative) Urine Glucose (UA) (Negative) Urine Ketones (Negative) Urine Blood (Negative) Urine Nitrite (Negative) Urine Bilirubin (Negative) Urine Urobilinogen (<2.0) mg/dL Ur Leukocyte Esterase (Negative) Urine RBC (0-5) /hpf Urine WBC (0-5) /hpf Urine WBC Clumps (None) /hpf Ur Squamous Epith Cells (0-4) /hpf Urine Bacteria (None) /hpf Hyaline Casts (0-2) /lpf Urine Mucus (None) /hpf Urine HCG, Qual (Not Detectd) Acetone, Qual (Negative) Coronavirus (PCR) Not Detected (Not Detectd) Influenza Type A RNA (Not Detectd) Influenza Type B (PCR) (Not Detectd) Critical Care Time Critical Care Time: Yes Total Critical Care Time: 31 <Hemanth Tobin - Last Filed: 08/13/21 00:17> Disposition Time of Disposition: 23:09 Decision to Admit Reason: Admit from EC Decision Date: 08/12/21 Decision Time: 23:09 <Anastasiia Ramirez - Last Filed: 08/12/21 23:55> <Hemanth Tobin - Last Filed: 08/13/21 00:17> Clinical Impression: Hyperkalemia, Hyperglycemia, Pancreatitis Disposition: ADMITTED IP TO THIS [facility] Condition: Fair
[2021-08-12 22:15] LABS: Anisocytosis Slight; Basophils # (A) 0.1 k/uL (0-0.2); Basophils % (A) 1 %; Eosinophils # (A) 0.3 k/uL (0-0.7); Eosinophils % (A) 2 %; HCT 34.6 % (34.0-46.0); HGB 9.9 gm/dL (11.4-16.0); Hypochromasia Marked; Lymphocytes # (A) 2.8 k/uL (1.0-4.8); Lymphocytes % (A) 20 %; MCH 23.7 pg (25.0-35.0); MCHC 28.7 g/dL (31.0-37.0); MCV 82.4 fL (80.0-100.0); Mean Platelet Volume 7.4; Microcytosis Slight; Monocytes # (A) 0.9 k/uL (0-1.0); Monocytes % (A) 6 %; Neutrophils # (A) 10.1 k/uL (1.3-7.7); Neutrophils % (A) 71 %; Platelet Count 945 k/uL (150-450); RDW 17.4 % (11.5-15.5); WBC 14.3 k/uL (3.8-10.6)
[2021-08-12 22:34] LABS: ALT 26 U/L (4-34); AST 50 U/L (14-36); African American GFR (CKD) 76 (>60 ml/min/1.73 sqM); Albumin 3.8 g/dL (3.5-5.0); Alkaline Phosphatase 198 U/L (38-126); Amylase 54 U/L (30-110); Anion Gap 10 mmol/L; Blood Urea Nitrogen 22 mg/dL (7-17); Calcium 9.4 mg/dL (8.4-10.2); Carbon Dioxide 25 mmol/L (22-30); Chloride 99 mmol/L (98-107); Glucose 358 mg/dL (74-99); Lipase 591 U/L (23-300); Magnesium 1.6 mg/dL (1.6-2.3); Non-African American GFR(CKD) 66 (>60 ml/min/1.73 sqM); Partial Thromboplastin Time 22.4 sec (22.0-30.0); Phosphorus 4.5 mg/dL (2.5-4.5); Potassium 5.4 mmol/L (3.5-5.1); Prothrombin Time 10.5 sec (9.0-12.0); Sodium 134 mmol/L (137-145); Total Bilirubin 0.6 mg/dL (0.2-1.3); Total Protein 6.9 g/dL (6.3-8.2)
[2021-08-12] MEDS ORDERED: ALBUTEROL NEB (CONC) 2.5 MG/0.5 ML INHALATION ONE (23:04)
[2021-08-12 23:07] LABS: Appearance,Urine Turbid (Clear); Bacteria,Urine Many /hpf; Bilirubin,Urine Negative (Negative); Blood,Urine Negative (Negative); Color,Urine Yellow; Glucose,Urine (UA) 1+ (Negative); Hyaline Casts,Urine 3 /lpf (0-2); Ketones,Urine Negative (Negative); Leukocyte Esterase,Urine Moderate (Negative); Mucus,Urine Occasional /hpf; Nitrite,Urine Positive (Negative); PH, Urine 5.5 (5.0-8.0); Protein,Urine 2+ (Negative); RBC,Urine 1 /hpf (0-5); Squamous Epithelial Cell,Urine 34 /hpf (0-4); WBC,Urine 62 /hpf (0-5)
[2021-08-12] MEDS ORDERED: CALCIUM GLUCONATE IN NACL 1 GM in SALINE 1 100ML.BAG IVPB ONE (23:10)
[2021-08-12] MEDS ORDERED: SODIUM BICARB 8.4% 50 ML SYR (1 MEQ/ML) IV ONE (23:10)
[2021-08-12 23:15] LABS: VBG PH 7.44 (7.31-7.41)
[2021-08-12] MEDS ORDERED: NALOXONE 0.4 MG/ML 1 ML VIAL IV PRN (23:33)
[2021-08-13] MEDS: SODIUM CHLORIDE 0.9% 1,000 ML IV SCH ×4 (00:08→23:55)
[2021-08-13 01:54] LABS: Glucose,Whole Blood 318 mg/dL (75-99)
[2021-08-13] MEDS ORDERED: HYDROmorphone 1 MG/ML 1 ML SYRINGE IVP PRN (02:11)
[2021-08-13] MEDS: INSULIN ASPART (NovoLOG) 100 UNIT/ML VIAL SQ SCH ×5 (02:54→20:24)
[2021-08-13 04:53] LABS: Anisocytosis Slight; Basophils # (A) 0.1 k/uL (0-0.2); Basophils % (A) 1 %; Eosinophils # (A) 0.1 k/uL (0-0.7); Eosinophils % (A) 1 %; HCT 31.6 % (34.0-46.0); Hypochromasia Marked; Lymphocytes # (A) 2.6 k/uL (1.0-4.8); Lymphocytes % (A) 25 %; MCH 23.5 pg (25.0-35.0); MCHC 28.5 g/dL (31.0-37.0); MCV 82.7 fL (80.0-100.0); Mean Platelet Volume 7.3; Microcytosis Slight; Monocytes # (A) 0.5 k/uL (0-1.0); Monocytes % (A) 5 %; Neutrophils % (A) 67 %; RBC 3.81 m/uL (3.80-5.40); RDW 17.4 % (11.5-15.5); WBC 10.6 k/uL (3.8-10.6)
[2021-08-13 05:03] LABS: ALT 23 U/L (4-34); AST 57 U/L (14-36); African American GFR (CKD) >90 (>60 ml/min/1.73 sqM); Albumin 3.2 g/dL (3.5-5.0); Alkaline Phosphatase 157 U/L (38-126); Anion Gap 13 mmol/L; Blood Urea Nitrogen 21 mg/dL (7-17); Calcium 8.7 mg/dL (8.4-10.2); Carbon Dioxide 23 mmol/L (22-30); Chloride 101 mmol/L (98-107); Glucose 260 mg/dL (74-99); Lipase 507 U/L (23-300); Non-African American GFR(CKD) 81 (>60 ml/min/1.73 sqM); Potassium 4.5 mmol/L (3.5-5.1); Sodium 137 mmol/L (137-145); Total Bilirubin 0.4 mg/dL (0.2-1.3); Total Protein 6.2 g/dL (6.3-8.2)
[2021-08-13 05:18] LABS: Platelet Count 663 k/uL (150-450)
[2021-08-13 07:08] LABS: Glucose,Whole Blood 237 mg/dL (75-99)
[2021-08-13] MEDS ORDERED: ALBUTEROL NEBULIZED 2.5 MG/3 ML INHALATION PRN (11:03)
[2021-08-13 11:21] LABS: Glucose,Whole Blood 216 mg/dL (75-99)
[2021-08-13] MEDS: ACETAMINOPHEN TAB 325 MG TAB PO PRN ×2 (12:20→20:25)
[2021-08-13 17:06] LABS: Glucose,Whole Blood 197 mg/dL (75-99)
[2021-08-13] MEDS: HYDROcodone/APAP 5-325MG 1 EACH TAB PO PRN ×2 (17:06→23:54)
--- NOTE | 2021-08-13 17:43 | P.HPIM ---
History of Present Illness H&P Date: 08/13/21 Chief Complaint: Abdominal pain 50-year-old female presenting with chief complaint of "I feel like my sugar is too high". Patient states that today she began to feel tired, lightheaded, nauseous, which usually indicates to her that her blood sugar is too high. She is also complaining of diffuse abdominal discomfort. Also complaining of dysuria. Patient is a type II diabetic controlled by insulin. She has a history of pancreatitis. Patient denies any chest pain, shortness of breath, vomiting, cough, hemoptysis, falls, head injury, palpitations, weakness, fever, chills, hematuria, urgency, frequency. Blood work completed in the ER reveals WBC of 14.3, hemoglobin 9.9, platelet count of 945, sodium 134, potassium 5.4, BUN/creatinine of 22/1.01 and blood glucose of 358; lipase elevated at 591; UA is positive Patient has a history of pancreatitis, she has been admitted multiple times to this hospital for pancreatitis, hyperkalemia, hyperglycemia. Review of Systems REVIEW OF SYSTEMS: CONSTITUTIONAL: No fever, no malaise, no fatigue. HEENT: No recent visual problems or hearing problems. Denied any sore throat. CARDIOVASCULAR: No chest pain, orthopnea, PND, no palpitations, no syncope. PULMONARY: No shortness of breath, no cough, no hemoptysis. GASTROINTESTINAL: No diarrhea, no nausea, no vomiting, no abdominal pain. NEUROLOGICAL: No headaches, no weakness, no numbness. HEMATOLOGICAL: Denies any bleeding or petechiae. GENITOURINARY: Denies any burning micturition, frequency, or urgency. MUSCULOSKELETAL/RHEUMATOLOGICAL: Denies any joint pain, swelling, or any muscle pain. ENDOCRINE: Denies any polyuria or polydipsia. The rest of the 14-point review of systems is negative. Past Medical History Past Medical History: Diabetes Mellitus, GERD/Reflux, Hyperlipidemia, Hypertension, Syncope Additional Past Medical History / Comment(s): Pt recently admitted to [facility] on 07/21/21 with uncontrolled IDDM and hyperkalemia. Other hx: Recurrent pancreatitis, hypertriglyceridemia, elevated lipase, IDDM type II, UTI, chronic low back pain, bulging discs, dental abscesses in past. History of Any Multi-Drug Resistant Organisms: None Reported Past Surgical History: Tubal Ligation Additional Past Surgical History / Comment(s): Age 7 had VSD repair Past Anesthesia/Blood Transfusion Reactions: No Reported Reaction Past Psychological History: No Psychological Hx Reported Additional Psychological History / Comment(s): She uses no assistive devices. She does not drive. She gets to appointments by walking or using the bus system. She has a glucometer at home. Smoking Status: Former smoker Past Alcohol Use History: None Reported Additional Past Alcohol Use History / Comment(s): Pt started smoking in 2000- pt states she quit smoking February or March of 2021 Past Drug Use History: None Reported - Past Family History Mother Family Medical History: No Reported History Additional Family Medical History / Comment(s): Mother was healthy. She is , pt cannot recall cause of . Father Family Medical History: Pneumonia Additional Family Medical History / Comment(s): Father at the age of 67yrs from pneumonia Medications and Allergies Home Medications Medication Instructions Recorded Confirmed Type Fenofibrate [Lofibra] 160 mg PO DAILY #30 tab 03/23/19 08/12/21 Rx Atorvastatin [Lipitor] 80 mg PO HS 06/25/19 08/12/21 History lisinopriL 40 mg PO DAILY 09/24/20 08/12/21 History metFORMIN HCL [Glucophage] 500 mg PO DAILY 09/24/20 08/12/21 History traZODone HCL 50 - 100 mg PO HS PRN 01/11/21 08/12/21 History Ergocalciferol (Vitamin D2) 1,250 mcg PO TU 03/03/21 08/12/21 History [Drisdol (50,000 Iu)] Esomeprazole Magnesium [NexIUM] 20 mg PO DAILY 03/28/21 08/12/21 History hydrOXYzine HCL [Atarax] 25 mg PO TID PRN #15 tab 06/04/21 08/12/21 Rx Albuterol Inhaler [Ventolin Hfa 2 puff INHALATION RT-QID PRN 07/28/21 08/12/21 History Inhaler] INSULIN ASPART (NovoLOG) [NovoLOG 5 unit SQ ACHS 30 Days #5 each 08/11/21 08/12/21 Rx (formulary)] INSULIN ASPART (NovoLOG) [NovoLOG 25 unit SQ AC-TID 30 Days #5 each 08/11/2110/27 Rx (formulary)] Insulin Detemir (Levemir) [Levemir] 60 unit SQ DAILY@0700 30 Days #5 08/11/21 08/12/21 Rx dispenser HYDROcodone/APAP 5-325MG [[place] 1 tab PO Q6HR PRN 08/12/21 08/12/21 History 5-325] Allergies Allergy/AdvReac Type Severity Reaction Status Date / Time levofloxacin [From Levaquin] Allergy Rash/Hives Verified 08/12/21 21:45 Physical Exam Vitals: Vital Signs Temp Pulse Pulse Resp BP BP Pulse Ox 08/13/21 07:19 97.9 F 60 18 107/56 97 08/13/21 02:00 99.0 F 72 17 131/57 95 08/13/21 00:25 98.8 F 78 18 111/87 97 08/12/21 23:46 88 08/12/21 23:41 84 08/12/21 21:17 100.1 F H 84 18 111/76 95 08/12/21 12:55 99.4 F 82 20 123/54 96 Intake and Output 08/12/21 08/13/21 08/13/21 22:59 06:59 14:59 Intake Total 600 Balance 600 Intake: Intake, IV Titration 600 Amount Sodium Chloride 0.9% 1, 600 000 ml @ 130 mls/hr IV . Q7H42M [facility] Rx#:[id number] Other: Voiding Method Toilet Weight 102.965 kg PHYSICAL EXAMINATION: GENERAL: The patient is alert and oriented x3, not in any acute distress. Well developed, well nourished. HEENT: Pupils are round and equally reacting to light. EOMI. No scleral icterus. No conjunctival pallor. Normocephalic, atraumatic. No pharyngeal erythema. No thyromegaly. CARDIOVASCULAR: S1 and S2 present. No murmurs, rubs, or gallops. PULMONARY: Chest is clear to auscultation, no wheezing or crackles. ABDOMEN: Soft, nontender, nondistended, normoactive bowel sounds. No palpable organomegaly. MUSCULOSKELETAL: No joint swelling or deformity. EXTREMITIES: No cyanosis, clubbing, or pedal edema. NEUROLOGICAL: Gross neurological examination did not reveal any focal deficits. SKIN: No rashes. Results CBC & Chem 7: 08/13/21 04:11 08/13/21 04:14 Labs: Abnormal Lab Results - Last 24 Hours (Table) 08/12/21 08/12/21 08/12/21 Range/Units 21:20 21:40 21:40 WBC 14.3 H (3.8-10.6) k/uL Hgb 9.9 L (11.4-16.0) gm/dL Hct (34.0-46.0) % MCH 23.7 L (25.0-35.0) pg MCHC 28.7 L (31.0-37.0) g/dL RDW 17.4 H (11.5-15.5) % Plt Count 945 H (150-450) k/uL Neutrophils # 10.1 H (1.3-7.7) k/uL VBG pH (7.31-7.41) VBG pCO2 (37-51) mmHg VBG HCO3 (24-28) mmol/L Sodium 134 L (137-145) mmol/L Potassium 5.4 H (3.5-5.1) mmol/L BUN 22 H (7-17) mg/dL Glucose 358 H (74-99) mg/dL POC Glucose (mg/dL) 342 H (75-99) mg/dL AST 50 H (14-36) U/L Alkaline Phosphatase 198 H (38-126) U/L Total Protein (6.3-8.2) g/dL Albumin (3.5-5.0) g/dL Lipase 591 H (23-300) U/L Urine Appearance (Clear) Urine Protein (Negative) Urine Glucose (UA) (Negative) Urine Nitrite (Negative) Ur Leukocyte Esterase (Negative) Urine WBC (0-5) /hpf Urine WBC Clumps (None) /hpf Ur Squamous Epith Cells (0-4) /hpf Urine Bacteria (None) /hpf Hyaline Casts (0-2) /lpf Urine Mucus (None) /hpf 08/12/21 08/12/21 08/13/21 Range/Units 22:10 23:00 01:51 WBC (3.8-10.6) k/uL Hgb (11.4-16.0) gm/dL Hct (34.0-46.0) % MCH (25.0-35.0) pg MCHC (31.0-37.0) g/dL RDW (11.5-15.5) % Plt Count (150-450) k/uL Neutrophils # (1.3-7.7) k/uL VBG pH 7.44 H (7.31-7.41) VBG pCO2 34 L (37-51) mmHg VBG HCO3 23 L (24-28) mmol/L Sodium (137-145) mmol/L Potassium (3.5-5.1) mmol/L BUN (7-17) mg/dL Glucose (74-99) mg/dL POC Glucose (mg/dL) 318 H (75-99) mg/dL AST (14-36) U/L Alkaline Phosphatase (38-126) U/L Total Protein (6.3-8.2) g/dL Albumin (3.5-5.0) g/dL Lipase (23-300) U/L Urine Appearance Turbid H (Clear) Urine Protein 2+ H (Negative) Urine Glucose (UA) 1+ H (Negative) Urine Nitrite Positive H (Negative) Ur Leukocyte Esterase Moderate H (Negative) Urine WBC 62 H (0-5) /hpf Urine WBC Clumps Moderate H (None) /hpf Ur Squamous Epith Cells 34 H (0-4) /hpf Urine Bacteria Many H (None) /hpf Hyaline Casts 3 H (0-2) /lpf Urine Mucus Occasional H (None) /hpf 08/13/21 08/13/21 08/13/21 Range/Units 04:11 04:14 07:07 WBC (3.8-10.6) k/uL Hgb 9.0 L (11.4-16.0) gm/dL Hct 31.6 L (34.0-46.0) % MCH 23.5 L (25.0-35.0) pg MCHC 28.5 L (31.0-37.0) g/dL RDW 17.4 H (11.5-15.5) % Plt Count 663 H (150-450) k/uL Neutrophils # (1.3-7.7) k/uL VBG pH (7.31-7.41) VBG pCO2 (37-51) mmHg VBG HCO3 (24-28) mmol/L Sodium (137-145) mmol/L Potassium (3.5-5.1) mmol/L BUN 21 H (7-17) mg/dL Glucose 260 H (74-99) mg/dL POC Glucose (mg/dL) 237 H (75-99) mg/dL AST 57 H (14-36) U/L Alkaline Phosphatase 157 H (38-126) U/L Total Protein 6.2 L (6.3-8.2) g/dL Albumin 3.2 L (3.5-5.0) g/dL Lipase 507 H (23-300) U/L Urine Appearance (Clear) Urine Protein (Negative) Urine Glucose (UA) (Negative) Urine Nitrite (Negative) Ur Leukocyte Esterase (Negative) Urine WBC (0-5) /hpf Urine WBC Clumps (None) /hpf Ur Squamous Epith Cells (0-4) /hpf Urine Bacteria (None) /hpf Hyaline Casts (0-2) /lpf Urine Mucus (None) /hpf Thrombosis Risk Factor Assmnt - Choose All That Apply Each Factor Represents 1 point: Obesity (BMI >25) Thrombosis Risk Factor Assessment Total Risk Factor Score: 1 Thrombosis Risk Factor Assessment Level: Low Risk Assessment and Plan Assessment: 1. Acute pancreatitis; patient is kept nothing by mouth; continue with IV fluid; continue with PPI; we will monitor lipase levels and make further recommendations 2. UTI; patient received Rocephin 1 g IV in ED; we will continue current anti biotics to final urine and blood culture reports are available 3. Hyperglycemia/diabetes mellitus controlled with insulin; patient takes Levemir 60 units subcu daily at home; we will hold off on Levemir to oral intake is established; we will monitor Accu-Cheks every before meals and at bedtime wit h insulin sliding scale 4. Hyperkalemia/mild AK I; treated in ED; patient remains on IV fluids in form of normal saline at rate of 1 25 mL an hour; we will monitor strict SEEMA's, daily weights, renal function and electrolytes; avoid nephrotoxic agent 5. Hypertension; lisinopril 40 mg daily 6. Hyperlipidemia; Lipitor 80 mg by mouth daily at bedtime DVT prophylax; SCDs CODE STATUS; full code
[2021-08-13 20:11] LABS: Glucose,Whole Blood 153 mg/dL (75-99)
[2021-08-13] MEDS: ATORVASTATIN 80 MG TAB PO SCH (20:25)
[2021-08-14] MEDS: HYDROcodone/APAP 5-325MG 1 EACH TAB PO PRN ×3 (05:33→20:48)
[2021-08-14 06:38] LABS: Glucose,Whole Blood 218 mg/dL (75-99)
[2021-08-14] MEDS: SODIUM CHLORIDE 0.9% 1,000 ML IV SCH ×2 (07:03→16:55)
[2021-08-14] MEDS: INSULIN ASPART (NovoLOG) 100 UNIT/ML VIAL SQ SCH ×4 (08:59→20:48)
[2021-08-14] MEDS: FENOFIBRATE 160 MG TAB PO SCH (09:00)
[2021-08-14] MEDS: lisinopriL 20 MG TAB PO SCH (09:00)
[2021-08-14 09:25] LABS: African American GFR (CKD) 118.7 (60.0-200.0); Anion Gap 13.4 mmol/L (10.00-18.00); Blood Urea Nitrogen 9.8 mg/dL (9.0-27.0); Calcium 8.4 mg/dL (8.7-10.3); Carbon Dioxide 21.6 mmol/L (20.0-27.5); Non-African American GFR(CKD) 102.5 (60.0-200.0); Potassium 4.8 mmol/L (3.5-5.5)
[2021-08-14 09:44] LABS: Basophils # (A) 0.05 X 10*3/uL (0.00-0.10); Basophils % (A) 0.6 %; Eosinophils # (A) 0.16 X 10*3/uL (0.04-0.35); Eosinophils % (A) 1.9 %; HCT 28.8 % (37.2-46.3); Immature Grans, Automated 0.5 %; Lymphocytes # (A) 2.41 X 10*3/uL (0.90-5.00); Lymphocytes % (A) 28.9 %; MCH 23.1 pg (27.0-32.0); MCHC 27.8 g/dL (32.0-37.0); Mean Platelet Volume 9.7 fL (9.5-12.2); Monocytes # (A) 0.64 X 10*3/uL (0.20-1.00); Monocytes % (A) 7.7 %; NRBC Per 100 WBC 0 /100 WBCS (0.0-0.0); Neutrophils # (A) 5.05 X 10*3/uL (1.80-7.70); Neutrophils % (A) 60.4 %; Platelet Count 620 X 10*3/uL (140-440); RBC 3.47 X 10*6/uL (4.10-5.20); RDW 18.4 % (11.5-14.5); WBC 8.35 X 10*3/uL (4.50-10.00)
[2021-08-14 11:19] LABS: Glucose,Whole Blood 179 mg/dL (75-99)
[2021-08-14 16:29] LABS: Glucose,Whole Blood 153 mg/dL (75-99)
[2021-08-14 20:35] LABS: Glucose,Whole Blood 269 mg/dL (75-99)
[2021-08-14] MEDS: ATORVASTATIN 80 MG TAB PO SCH (20:48)
[2021-08-14] MEDS: SULFAMETHOX-TMP 800-160MG 1 EACH TAB PO SCH (20:48)
[2021-08-15 01:06] VITALS: RESP 17
[2021-08-15] MEDS: HYDROcodone/APAP 5-325MG 1 EACH TAB PO PRN (03:20)
[2021-08-15 06:48] LABS: Glucose,Whole Blood 235 mg/dL (75-99)
[2021-08-15 08:42] VITALS: BP 134/86; PULSE 68; TEMP 98.2
[2021-08-15] MEDS: SULFAMETHOX-TMP 800-160MG 1 EACH TAB PO SCH (08:52)
[2021-08-15] MEDS: FENOFIBRATE 160 MG TAB PO SCH (08:53)
[2021-08-15] MEDS: INSULIN ASPART (NovoLOG) 100 UNIT/ML VIAL SQ SCH ×2 (08:53→12:14)
[2021-08-15] MEDS: lisinopriL 20 MG TAB PO SCH (08:53)
[2021-08-15] MEDS ORDERED: ERGOCALCIFEROL 1,250 MCG (50,000 IU) CAPSULE PO SCH (09:00)
[2021-08-15 11:02] LABS: Glucose,Whole Blood 414 mg/dL (75-99)
--- NOTE | 2021-08-17 18:41 | PN ---
PROGRESS NOTE DATE OF SERVICE: 08/14/2021 CHIEF COMPLAINT: Uncontrolled diabetes and abdominal pain. HISTORY OF PRESENT ILLNESS: This lady is still complaining of abdominal discomfort. She is not vomiting. Her diet has been advanced. Sugars are better. PHYSICAL EXAMINATION: Hydration is adequate. Color is good. Chest is clear. Cardiac exam is normal. Abdomen is soft and protuberant. IMPRESSION: 1. Uncontrolled diabetes. 2. Chronic relapsing pancreatitis. PLAN: Look at lipase once again and increase diet and activity. She was told that she will likely be discharged on August 15. MMODL / IJN: [id number] /
--- NOTE | 2021-08-17 21:41 | DS ---
DISCHARGE SUMMARY CHIEF COMPLAINT: Abdominal pain and uncontrolled diabetes. HISTORY OF PRESENT ILLNESS AND PHYSICAL EXAMINATION: Details of this lady's history and physical can be found in the initial workup. LABORATORY STUDIES: While she was in the hospital she had laboratory studies, details of which can be found in the laboratory section of her chart. COURSE IN THE HOSPITAL: After admission she was placed on bedrest, started on intravenous fluids, and blood sugars were brought under control. She continued to complain of epigastric pain, but her lipase was not significantly elevated compared to what it had been in the past. She was stable enough that it was felt that she could be discharged on August 15, even though she thought she should stay in the hospital longer. She will go home on her usual activity, diet and medications, and she was admonished to take them, which she usually does not. She will be seen in the office in a day or two, if she comes in. FINAL DIAGNOSIS: 1. Abdominal pain. 2. Uncontrolled diabetes mellitus. 3. Chronic relapsing pancreatitis. 4. Hypertriglyceridemia. OPERATIONS: None. CONSULTATIONS: None. She is improved. MMODL / IJN: [id number] /
== END 2021-08-15 12:33 | disposition home or self-care (01) ==
LOC: EC 12:45 → 4SSUR 23:09
PROVIDERS: ADMIT Family Medicine; ATTEND Family Medicine
DX: R10.13 Epigastric pain (principal); E11.65 Type 2 diabetes mellitus with hyperglycemia; K86.1 Other chronic pancreatitis; E78.1 Pure hyperglyceridemia; K85.90 Acute pancreatitis without necrosis or infection, unspecified; N39.0 Urinary tract infection, site not specified; E87.5 Hyperkalemia; N17.9 Acute kidney failure, unspecified; I10 Essential (primary) hypertension; E78.5 Hyperlipidemia, unspecified; K21.9 Gastro-esophageal reflux disease without esophagitis; G89.29 Other chronic pain; M54.50 Low back pain, unspecified; E66.9 Obesity, unspecified; Z68.41 Body mass index [BMI] 40.0-44.9, adult; Z20.822 Contact with and (suspected) exposure to COVID-19; Z87.440 Personal history of urinary (tract) infections; Z87.74 Personal history of (corrected) congenital malformations of heart and circulatory system; Z87.891 Personal history of nicotine dependence; Z79.899 Other long term (current) drug therapy; Z79.84 Long term (current) use of oral hypoglycemic drugs; Z79.4 Long term (current) use of insulin; Z88.1 Allergy status to other antibiotic agents; Z83.6 Family history of other diseases of the respiratory system
CPT/HCPCS: 96361; 96366 ×2; 96375 ×3; 96365; 99285; 36415; 94640 ×2; 93005; 80053 ×2; 80048; 82150; 82803; 82009; 83605; 83690 ×3; 83735; 84100; 84484; 85025 ×3; 85610; 85730; 81001; 81025; 87086; 87077; 87186; 87502; 87635; G0378 ×3; J2405; J0696 ×3; J1170; J0610

== ENCOUNTER 2021-08-27 16:15 | Emergency (ER) | payer MEDICARE ==
[2021-08-27 16:20] VITALS: RESP 18; TEMP 98.4
[2021-08-27] MEDS ORDERED: SODIUM CHLORIDE 0.9% 2,000 ML IV ONE (16:32)
[2021-08-27 16:49] LABS: Anisocytosis Slight; Basophils # (A) 0.1 k/uL (0-0.2); Basophils % (A) 1 %; Eosinophils # (A) 0.3 k/uL (0-0.7); Eosinophils % (A) 3 %; HCT 30.7 % (34.0-46.0); HGB 8.9 gm/dL (11.4-16.0); Hypochromasia Marked; Lymphocytes # (A) 1.7 k/uL (1.0-4.8); Lymphocytes % (A) 19 %; MCH 23.2 pg (25.0-35.0); MCHC 29.1 g/dL (31.0-37.0); MCV 79.8 fL (80.0-100.0); Mean Platelet Volume 7.3; Microcytosis Slight; Monocytes # (A) 0.3 k/uL (0-1.0); Monocytes % (A) 3 %; Neutrophils # (A) 6.3 k/uL (1.3-7.7); Neutrophils % (A) 72 %; Platelet Count 626 k/uL (150-450); Poikilocytosis Slight; RBC 3.85 m/uL (3.80-5.40); RDW 17.3 % (11.5-15.5); WBC 8.7 k/uL (3.8-10.6)
[2021-08-27 16:59] LABS: ALT 20 U/L (4-34); AST 27 U/L (14-36); African American GFR (CKD) >90 (>60 ml/min/1.73 sqM); Albumin 3.5 g/dL (3.5-5.0); Alkaline Phosphatase 122 U/L (38-126); Anion Gap 11 mmol/L; Blood Urea Nitrogen 22 mg/dL (7-17); Calcium 8.3 mg/dL (8.4-10.2); Carbon Dioxide 19 mmol/L (22-30); Chloride 104 mmol/L (98-107); Glucose 424 mg/dL (74-99); Magnesium 1.2 mg/dL (1.6-2.3); Non-African American GFR(CKD) 88 (>60 ml/min/1.73 sqM); Potassium 4.7 mmol/L (3.5-5.1); Sodium 134 mmol/L (137-145); Total Bilirubin 0.3 mg/dL (0.2-1.3); Total Protein 6.2 g/dL (6.3-8.2)
--- NOTE | 2021-08-27 16:59 | XR ---
EXAMINATION TYPE: XR chest 2V DATE OF EXAM: 08/27/2021 4:50 PM COMPARISON: Chest radiographs from 2021. TECHNIQUE: XR chest 2V Frontal and lateral views of the chest. CLINICAL INDICATION:Female, 50 years old with history of Chest Pain; FINDINGS: Lungs/Pleura: There is no evidence of pleural effusion, focal consolidation, or pneumothorax. Pulmonary vascularity: Unremarkable. Heart/mediastinum: Cardiomediastinal silhouette is unremarkable. Musculoskeletal: No acute osseous pathology. IMPRESSION: No acute cardiopulmonary disease/process.
[2021-08-27 17:08] LABS: INR 0.9 (<1.2); Prothrombin Time 9.9 sec (9.0-12.0)
[2021-08-27 17:14] LABS: Partial Thromboplastin Time 20.6 sec (22.0-30.0)
[2021-08-27] MEDS ORDERED: KETOROLAC 15 MG/ML 1 ML VIAL IVP STA (17:43)
--- NOTE | 2021-08-27 17:44 | ED ---
Chest Pain HPI - General Chief Complaint: Chest Pain Stated Complaint: Chest pain Time Seen by Provider: 08/27/21 16:20 Source: patient, EMS Mode of arrival: EMS Limitations: no limitations - History of Present Illness Initial Comments: 50-year-old female with past medical history of diabetes, hypertension presents emergency Department with chest pain and high blood sugar. Patient is well- known to our facility and has been evaluated several times for same complaint. Describes as a left-sided chest pain which radiates underneath her breast. States it is reproducible upon palpation and movement. She has not attempted to take any medications for her symptoms. She denies associated shortness of breath, nausea or diaphoresis. No abdominal pain. No changes in her bowel or bladder habits. EMS was called to her house because of this complaint. They did check her sugar and it was noted to be in the 500s. She admits that she's been taking her medications as directed without any missed doses of her insulin. No other alleviating, precipitating or modifying factors - Related Data Home Medications Medication Instructions Recorded Confirmed Atorvastatin [Lipitor] 80 mg PO HS 06/25/19 08/12/21 lisinopriL 40 mg PO DAILY 09/24/20 08/12/21 metFORMIN HCL [Glucophage] 500 mg PO DAILY 09/24/20 08/12/21 traZODone HCL 50 - 100 mg PO HS PRN 01/11/21 08/12/21 Ergocalciferol (Vitamin D2) 1,250 mcg PO TU 03/03/21 08/12/21 [Drisdol (50,000 Iu)] Esomeprazole Magnesium [NexIUM] 20 mg PO DAILY 03/28/21 08/12/21 Albuterol Inhaler [Ventolin Hfa 2 puff INHALATION RT-QID PRN 07/28/21 08/12/21 Inhaler] HYDROcodone/APAP 5-325MG [[place] 1 tab PO Q6HR PRN 08/12/21 08/12/21 5-325] Previous Rx's Medication Instructions Recorded Fenofibrate [Lofibra] 160 mg PO DAILY #30 tab 03/23/19 hydrOXYzine HCL [Atarax] 25 mg PO TID PRN #15 tab 06/04/21 INSULIN ASPART (NovoLOG) [NovoLOG 5 unit SQ ACHS 30 Days #5 each 08/11/21 (formulary)] INSULIN ASPART (NovoLOG) [NovoLOG 25 unit SQ AC-TID 30 Days #5 each 08/11/21 (formulary)] Insulin Detemir (Levemir) [Levemir] 60 unit SQ DAILY@0700 30 Days #5 08/11/21 dispenser INSULIN ASPART (NovoLOG) [NovoLOG 0 unit SQ ACHS ml 08/15/21 (formulary)] Sulfamethox-Tmp 800-160Mg [Bactrim 1 each PO BID #20 tab 08/15/21 DS 800-160 mg] Albuterol Inhaler [Ventolin Hfa 1 puff INHALATION RT-QID PRN #8 gm 08/30/21 Inhaler] Benzonatate [Tessalon Perles] 100 mg PO TID 5 Days #15 cap 08/30/21 Allergies Allergy/AdvReac Type Severity Reaction Status Date / Time levofloxacin [From Levaquin] Allergy Rash/Hives Verified 08/30/21 14:50 Review of Systems ROS Statement: Those systems with pertinent positive or pertinent negative responses have been documented in the HPI. ROS Other: All systems not noted in ROS Statement are negative. EKG Findings - EKG Comments: EKG Findings:: EKG demonstrates sinus rhythm with a rate of 70. MN interval 134. QRS 82. QTC is 399. No acute ST segment elevations or depressions Past Medical History Past Medical History: Diabetes Mellitus, GERD/Reflux, Hyperlipidemia, Hypertension, Syncope Additional Past Medical History / Comment(s): Pt recently admitted to [facility] on 07/21/21 with uncontrolled IDDM and hyperkalemia. Other hx: Recurrent pancreatitis, hypertriglyceridemia, elevated lipase, IDDM type II, UTI, chronic low back pain, bulging discs, dental abscesses in past. History of Any Multi-Drug Resistant Organisms: None Reported Past Surgical History: Tubal Ligation Additional Past Surgical History / Comment(s): Age 7 had VSD repair Past Anesthesia/Blood Transfusion Reactions: No Reported Reaction Past Psychological History: No Psychological Hx Reported Smoking Status: Former smoker Past Alcohol Use History: None Reported Past Drug Use History: None Reported - Past Family History Mother Family Medical History: No Reported History Additional Family Medical History / Comment(s): Mother was healthy. She is , pt cannot recall cause of . Father Family Medical History: Pneumonia Additional Family Medical History / Comment(s): Father at the age of 67yrs from pneumonia General Exam Limitations: no limitations General appearance: alert, in no apparent distress Head exam: Present: atraumatic, normocephalic, normal inspection Eye exam: Present: normal appearance, PERRL, EOMI. Absent: scleral icterus, conjunctival injection, periorbital swelling ENT exam: Present: normal exam, mucous membranes moist Neck exam: Present: normal inspection. Absent: tenderness, meningismus, lymphadenopathy Respiratory exam: Present: normal lung sounds bilaterally, chest wall tenderness (left lateral chest wall). Absent: respiratory distress, wheezes, rales, rhonchi, stridor Cardiovascular Exam: Present: regular rate, normal rhythm, normal heart sounds. Absent: systolic murmur, diastolic murmur, rubs, gallop, clicks GI/Abdominal exam: Present: soft, normal bowel sounds. Absent: distended, tenderness, guarding, rebound, rigid Extremities exam: Present: normal inspection, full ROM, normal capillary refill. Absent: tenderness, pedal edema, joint swelling, calf tenderness Back exam: Present: normal inspection Neurological exam: Present: alert, oriented X3, CN II-XII intact Psychiatric exam: Present: normal affect, normal mood Skin exam: Present: warm, dry, intact, normal color. Absent: rash Course Vital Signs 08/27/21 08/27/21 08/27/21 16:18 16:43 18:06 Temperature 98.4 F Pulse Rate 67 68 89 Respiratory 18 18 18 Rate Blood Pressure 146/64 141/87 140/72 O2 Sat by Pulse 98 98 97 Oximetry 08/27/21 19:26 Temperature Pulse Rate 80 Respiratory 18 Rate Blood Pressure 141/68 O2 Sat by Pulse 98 Oximetry Chest Pain MDM - MDM On arrival patient is placed into room 5. A thorough history and physical exam was performed. IV access is established and she is given 2 L of normal saline. Laboratory studies are conducted and reveal a glucose of 424. Acetone is negative. Anion gap is 11. Troponin is negative. She's taken for chest x-ray which demonstrates no acute cardio pulmonary disease. Patient is additionally given 15 units of insulin. She is discharged home and has a follow-up appointment with Dr. Cerda on Saturday. Instructed to follow up with him and possibly request assistance at home and help with controlling with her diabetes. Patient has been seen multiple times for hyperglycemia and may not be compliant with her medications at home. She is instructed to return for any new or worsening symptoms. Patient discharged home in stable condition Disposition Clinical Impression: Atypical chest pain, Hyperglycemia due to type 2 diabetes mellitus Disposition: HOME SELF-CARE Condition: Stable Instructions (If sedation given, give patient instructions): Diabetic Hyperglycemia (ED) Additional Instructions: Please follow up with Dr. Cerda. Take your insulin as directed and return for any new or worsening symptoms. Is patient prescribed a controlled substance at d/c from ED?: No Referrals: Guillermo Cerda MD [Primary Care Provider] - 1-2 days Time of Disposition: 19:10
[2021-08-27] MEDS ORDERED: MAGNESIUM SULFATE-D5W PMX 1 GM in DEXTROSE/WATER 1 100ML.BAG IVPB SCH (17:45)
[2021-08-27 18:30] LABS: Glucose,Whole Blood 397 mg/dL (75-99)
[2021-08-27] MEDS ORDERED: INSULIN REGULAR 100 UNIT/ML VIAL (IM/SQ) SQ ONE (18:30)
[2021-08-27 19:27] VITALS: BP 141/68; PULSE 80
== END 2021-08-27 19:38 | disposition home or self-care (01) ==
LOC: EC 16:15
DX: R07.89 Other chest pain (principal); E11.65 Type 2 diabetes mellitus with hyperglycemia; E78.5 Hyperlipidemia, unspecified; I10 Essential (primary) hypertension; K21.9 Gastro-esophageal reflux disease without esophagitis; Z79.83 Long term (current) use of bisphosphonates; Z87.891 Personal history of nicotine dependence; Z88.1 Allergy status to other antibiotic agents
CPT/HCPCS: 36415; 93005; 83880; 80053; 82009; 83735; 84484; 85025; 85610; 85730; 71046; 99285; 96365; 96375; J3475; J1885

== ENCOUNTER 2021-08-30 13:25 | Emergency (ER) | payer MEDICARE ==
--- NOTE | 2021-08-30 15:25 | XR ---
EXAMINATION TYPE: XR chest 2V DATE OF EXAM: 08/30/2021 COMPARISON: Chest x-ray 3 days ago HISTORY: Progressive cough. TECHNIQUE: Frontal and lateral views of the chest are obtained. FINDINGS: There is no suspicious new focal air space opacity, pleural effusion, or pneumothorax seen . Persistent left lateral linear scarring or atelectasis. The cardiac silhouette size is stable and mildly enlarged. The osseous structures are intact. IMPRESSION: No new suspicious acute infiltrate. Cardiomegaly redemonstrated.
[2021-08-30 15:56] VITALS: RESP 18
[2021-08-30] MEDS ORDERED: BENZONATATE 100 MG CAP PO STA (15:56)
[2021-08-30] MEDS ORDERED: ALBUTEROL NEBULIZED 2.5 MG/3 ML INHALATION STA (16:02)
[2021-08-30] MEDS ORDERED: IBUPROFEN 800 MG TAB PO STA (16:03)
--- NOTE | 2021-08-30 16:31 | ED ---
URI HPI - General Chief Complaint: Upper Respiratory Infection Stated Complaint: pain all over Time Seen by Provider: 08/30/21 15:45 Source: patient Mode of arrival: ambulatory Limitations: no limitations - History of Present Illness Initial Comments: Patient is a 50-year-old female who presents to the emergency department with a chief complaint of generalized body aches. Patient states her symptoms started yesterday accompanied by chills. Patient states she woke up this morning with a wet cough. clear sputum. She denies chest pain, shortness of breath, abdominal pain, and other concerns. Denies recent sick contacts. Denies history of COPD and asthma. - Related Data Home Medications Medication Instructions Recorded Confirmed Atorvastatin [Lipitor] 80 mg PO HS 06/25/19 08/12/21 lisinopriL 40 mg PO DAILY 09/24/20 08/12/21 metFORMIN HCL [Glucophage] 500 mg PO DAILY 09/24/20 08/12/21 traZODone HCL 50 - 100 mg PO HS PRN 01/11/21 08/12/21 Ergocalciferol (Vitamin D2) 1,250 mcg PO TU 03/03/21 08/12/21 [Drisdol (50,000 Iu)] Esomeprazole Magnesium [NexIUM] 20 mg PO DAILY 03/28/21 08/12/21 Albuterol Inhaler [Ventolin Hfa 2 puff INHALATION RT-QID PRN 07/28/21 08/12/21 Inhaler] HYDROcodone/APAP 5-325MG [[place] 1 tab PO Q6HR PRN 08/12/21 08/12/21 5-325] Previous Rx's Medication Instructions Recorded Fenofibrate [Lofibra] 160 mg PO DAILY #30 tab 03/23/19 hydrOXYzine HCL [Atarax] 25 mg PO TID PRN #15 tab 06/04/21 INSULIN ASPART (NovoLOG) [NovoLOG 5 unit SQ ACHS 30 Days #5 each 08/11/21 (formulary)] INSULIN ASPART (NovoLOG) [NovoLOG 25 unit SQ AC-TID 30 Days #5 each 08/11/21 (formulary)] Insulin Detemir (Levemir) [Levemir] 60 unit SQ DAILY@0700 30 Days #5 08/11/21 dispenser INSULIN ASPART (NovoLOG) [NovoLOG 0 unit SQ ACHS ml 08/15/21 (formulary)] Sulfamethox-Tmp 800-160Mg [Bactrim 1 each PO BID #20 tab 08/15/21 DS 800-160 mg] Albuterol Inhaler [Ventolin Hfa 1 puff INHALATION RT-QID PRN #8 gm 08/30/21 Inhaler] Benzonatate [Tessalon Perles] 100 mg PO TID 5 Days #15 cap 08/30/21 Allergies Allergy/AdvReac Type Severity Reaction Status Date / Time levofloxacin [From Levaquin] Allergy Rash/Hives Verified 08/30/21 14:50 Review of Systems ROS Statement: Those systems with pertinent positive or pertinent negative responses have been documented in the HPI. ROS Other: All systems not noted in ROS Statement are negative. Past Medical History Past Medical History: Diabetes Mellitus, GERD/Reflux, Hyperlipidemia, Hypertension, Syncope Additional Past Medical History / Comment(s): Pt recently admitted to [facility] on 07/21/21 with uncontrolled IDDM and hyperkalemia. Other hx: Recurrent pancreatitis, hypertriglyceridemia, elevated lipase, IDDM type II, UTI, chronic low back pain, bulging discs, dental abscesses in past. History of Any Multi-Drug Resistant Organisms: None Reported Past Surgical History: Tubal Ligation Additional Past Surgical History / Comment(s): Age 7 had VSD repair Past Anesthesia/Blood Transfusion Reactions: No Reported Reaction Past Psychological History: No Psychological Hx Reported Smoking Status: Former smoker Past Alcohol Use History: None Reported Past Drug Use History: None Reported - Past Family History Mother Family Medical History: No Reported History Additional Family Medical History / Comment(s): Mother was healthy. She is , pt cannot recall cause of . Father Family Medical History: Pneumonia Additional Family Medical History / Comment(s): Father at the age of 67yrs from pneumonia General Exam Limitations: no limitations General appearance: alert Head exam: Present: atraumatic, normocephalic, normal inspection Eye exam: Present: normal appearance, PERRL, EOMI. Absent: scleral icterus, conjunctival injection, periorbital swelling ENT exam: Present: normal oropharynx Neck exam: Present: normal inspection, full ROM. Absent: tenderness, lymphadenopathy Respiratory exam: Present: wheezes. Absent: normal lung sounds bilaterally, respiratory distress, rales, rhonchi, stridor, chest wall tenderness, accessory muscle use, decreased breath sounds Cardiovascular Exam: Present: regular rate, normal rhythm, normal heart sounds. Absent: systolic murmur, diastolic murmur, rubs, gallop, clicks GI/Abdominal exam: Present: soft, normal bowel sounds. Absent: distended, tenderness, guarding, rebound, rigid Neurological exam: Present: alert, oriented X3, CN II-XII intact Psychiatric exam: Present: normal affect, normal mood Skin exam: Present: warm, dry, intact, normal color. Absent: rash Course Vital Signs 08/30/21 08/30/21 08/30/21 14:47 15:53 16:06 Temperature 98.7 F 101.0 F H Pulse Rate 71 72 Respiratory 20 18 Rate Blood Pressure 149/73 147/79 O2 Sat by Pulse 95 95 Oximetry 08/30/21 16:41 Temperature Pulse Rate 71 Respiratory Rate Blood Pressure O2 Sat by Pulse Oximetry Medical Decision Making - Medical Decision Making This is a 50-year-old female who presents with fever, body aches, wet cough. Thorough history and examination were performed. Patient initially afebrile in triage but during my evaluation her skin did feel warm. Repeat temperature is 101.0F. Lung auscultation reveals wheezing throughout. Chest x-ray was obtained which shows no new suspicious acute infiltrate. Cardiomegaly was redemonstrated. COVID-19 and influenza A/B are not detected. Patient given breathing treatment, Tessalon Perles, and ibuprofen in the emergency department. Results discussed with patient. She is likely experiencing upper respiratory infection of viral etiology. I will discharge patient with albuterol inhaler and Tessalon Perles. She is encouraged to take Motrin or Tylenol as needed for fever and body aches. She is instructed to f ollow-up with primary care provider in one to 2 days. Return parameters discussed. Patient verbalizes understanding and is agreeable to this plan. Dr. George is my attending. - Lab Data Lab Results 08/30/21 08/30/21 Range/Units 14:55 14:55 Coronavirus (PCR) Not Detected (Not Detectd) Influenza Type A RNA Not Detected (Not Detectd) Influenza Type B (PCR) Not Detected (Not Detectd) Disposition Clinical Impression: Cough, Fever, Body aches Disposition: HOME SELF-CARE Condition: Good Instructions (If sedation given, give patient instructions): Upper Respiratory Infection (ED) Additional Instructions: Please take medication as directed. Use albuterol inhaler as needed. Continue to take Tylenol or Motrin for fever and body aches. Follow-up with primary care provider in one to 2 days. Return to the emergency department if you experience new, concerning, or worsening symptoms. Prescriptions: Benzonatate [Tessalon Perles] 100 mg PO TID 5 Days #15 cap Albuterol Inhaler [Ventolin Hfa Inhaler] 1 puff INHALATION RT-QID PRN #8 gm PRN Reason: Cough Is patient prescribed a controlled substance at d/c from ED?: No Referrals: Guillermo Cerda MD [Primary Care Provider] - 1-2 days Time of Disposition: 17:06
[2021-08-30 17:36] VITALS: BP 140/78; PULSE 88; TEMP 98.9
== END 2021-08-30 17:05 | disposition home or self-care (01) ==
LOC: EC 13:25
DX: R05.9 Cough, unspecified (principal); R50.9 Fever, unspecified; E11.9 Type 2 diabetes mellitus without complications; I10 Essential (primary) hypertension; E78.5 Hyperlipidemia, unspecified; K21.9 Gastro-esophageal reflux disease without esophagitis; Z79.83 Long term (current) use of bisphosphonates; Z87.891 Personal history of nicotine dependence; Z20.822 Contact with and (suspected) exposure to COVID-19; Z88.1 Allergy status to other antibiotic agents
CPT/HCPCS: 71046; 87502; 87635; 94640; 99284

== ENCOUNTER 2021-09-23 17:50 | Inpatient (IN) | payer MEDICARE ==
[2021-09-23 19:03] LABS: Glucose,Whole Blood 404 mg/dL (70-110)
[2021-09-24] MEDS ORDERED: SODIUM CHLORIDE 0.9% 1,000 ML IV ONE (01:42)
[2021-09-24] MEDS ORDERED: SODIUM CHLORIDE 0.9% 1,000 ML IV STA (01:42)
[2021-09-24] MEDS ORDERED: INSULIN REGULAR 100 UNIT/ML VIAL (IV) IV STA (01:42)
--- NOTE | 2021-09-24 01:47 | ED ---
URI HPI - General Chief Complaint: Upper Respiratory Infection Stated Complaint: cold symptoms Time Seen by Provider: 09/24/21 01:20 Source: patient Mode of arrival: wheelchair Limitations: no limitations - History of Present Illness Initial Comments: This patient is a 51-year-old woman who presents with a constellation of symptoms started approximately one week ago. She states she is having nonproductive cough, scratchy throat, nasal drainage and congestion. She had not noted fever or chills. No dyspnea. No chest pain. MD Complaint: cough, sore throat, rhinorrhea, nasal congestion Onset/Timin -: week(s) Consistency: constant Improves With: nothing Worsens With: nothing Associated Symptoms: rhinorrhea, sore throat, cough Treatments Prior to Arrival: none - Related Data Home Medications Medication Instructions Recorded Confirmed Atorvastatin [Lipitor] 80 mg PO HS 06/25/19 09/24/21 lisinopriL 40 mg PO DAILY 09/24/20 09/24/21 metFORMIN HCL [Glucophage] 500 mg PO DAILY 09/24/20 09/24/21 traZODone HCL 50 - 100 mg PO HS PRN 01/11/21 09/24/21 Ergocalciferol (Vitamin D2) 1,250 mcg PO TU 03/03/21 09/24/21 [Drisdol (50,000 Iu)] Esomeprazole Magnesium [NexIUM] 20 mg PO DAILY 03/28/21 09/24/21 Albuterol Inhaler [Ventolin Hfa 2 puff INHALATION RT-QID PRN 07/28/21 09/24/21 Inhaler] INSULIN ASPART (NovoLOG) [NovoLOG 18 unit SQ AC-TID 09/24/21 09/24/21 (formulary)] Previous Rx's Medication Instructions Recorded Fenofibrate [Lofibra] 160 mg PO DAILY #30 tab 03/23/19 Insulin Detemir (Levemir) [Levemir] 50 unit SQ DAILY@0700 30 Days #1 09/26/21 pen Allergies Allergy/AdvReac Type Severity Reaction Status Date / Time levofloxacin [From Levaquin] Allergy Rash/Hives Verified 09/24/21 11:15 Review of Systems ROS Statement: Those systems with pertinent positive or pertinent negative responses have been documented in the HPI. ROS Other: All systems not noted in ROS Statement are negative. Constitutional: Denies: fever, chills ENT: Reports: throat pain, congestion Respiratory: Reports: cough. Denies: dyspnea, wheezes Cardiovascular: Denies: chest pain, palpitations, orthopnea, edema Gastrointestinal: Denies: abdominal pain, vomiting, diarrhea Genitourinary: Denies: dysuria, hematuria Musculoskeletal: Denies: back pain Skin: Denies: rash Neurological: Denies: headache, weakness, numbness Past Medical History Past Medical History: Diabetes Mellitus, GERD/Reflux, Hyperlipidemia, Hypertension, Syncope Additional Past Medical History / Comment(s): Pt recently admitted to [facility] on 07/21/21 with uncontrolled IDDM and hyperkalemia. Other hx: Recurrent pancreatitis, hypertriglyceridemia, elevated lipase, IDDM type II, UTI, chronic low back pain, bulging discs, dental abscesses in past. History of Any Multi-Drug Resistant Organisms: None Reported Past Surgical History: Tubal Ligation Additional Past Surgical History / Comment(s): Age 7 had VSD repair Past Anesthesia/Blood Transfusion Reactions: No Reported Reaction Past Psychological History: No Psychological Hx Reported Smoking Status: Former smoker Past Alcohol Use History: None Reported Past Drug Use History: None Reported - Past Family History Mother Family Medical History: No Reported History Additional Family Medical History / Comment(s): Mother was healthy. She is , pt cannot recall cause of . Father Family Medical History: Pneumonia Additional Family Medical History / Comment(s): Father at the age of 67yrs from pneumonia General Exam Limitations: no limitations General appearance: alert, in no apparent distress Head exam: Present: atraumatic, normocephalic Eye exam: Present: normal appearance. Absent: scleral icterus, conjunctival injection ENT exam: Present: normal oropharynx Neck exam: Present: normal inspection Respiratory exam: Present: normal lung sounds bilaterally. Absent: respiratory distress, wheezes, rales, rhonchi, stridor Cardiovascular Exam: Present: regular rate, normal rhythm, normal heart sounds. Absent: systolic murmur, diastolic murmur, rubs, gallop GI/Abdominal exam: Present: soft. Absent: distended, tenderness, guarding, rebound, rigid, mass Extremities exam: Present: normal inspection, normal capillary refill. Absent: pedal edema, calf tenderness Back exam: Present: normal inspection. Absent: CVA tenderness (R), CVA tenderness (L) Neurological exam: Present: alert Skin exam: Present: warm, dry, intact, normal color. Absent: rash Course Vital Signs 09/23/21 09/24/21 09/24/21 18:57 01:26 02:12 Temperature 98.5 F Pulse Rate 73 Respiratory 18 18 22 Rate Blood Pressure 146/80 141/60 O2 Sat by Pulse 96 94 L Oximetry 09/24/21 09/24/21 09/24/21 06:30 07:43 10:03 Temperature 98.0 F 98.6 F Pulse Rate 82 74 82 Respiratory 18 18 18 Rate Blood Pressure 148/77 142/79 132/86 O2 Sat by Pulse 96 95 97 Oximetry Medical Decision Making - Lab Data Result diagrams: 09/30/21 19:08 10/02/21 06:06 Lab Results 09/23/21 09/23/21 09/23/21 Range/Units 19:01 19:01 19:01 WBC (3.8-10.6) k/uL RBC (3.80-5.40) m/uL Hgb (11.4-16.0) gm/dL Hct (34.0-46.0) % MCV (80.0-100.0) fL MCH (25.0-35.0) pg MCHC (31.0-37.0) g/dL RDW (11.5-15.5) % Plt Count (150-450) k/uL MPV Neutrophils % % Lymphocytes % % Monocytes % % Eosinophils % % Basophils % % Neutrophils # (1.3-7.7) k/uL Lymphocytes # (1.0-4.8) k/uL Monocytes # (0-1.0) k/uL Eosinophils # (0-0.7) k/uL Basophils # (0-0.2) k/uL Hypochromasia Anisocytosis Microcytosis D-Dimer (<0.60) mg/L FEU Sodium (137-145) mmol/L Potassium (3.5-5.1) mmol/L Chloride (98-107) mmol/L Carbon Dioxide (22-30) mmol/L Anion Gap mmol/L BUN (7-17) mg/dL Creatinine (0.52-1.04) mg/dL Est GFR (CKD-EPI)AfAm (>60 ml/min/1.73 sqM) Est GFR (CKD-EPI)NonAf (>60 ml/min/1.73 sqM) Glucose (74-99) mg/dL POC Glucose (mg/dL) 404 H (70-110) mg/dL POC Glu Top Frame Fitter ID Beto Jiménez Calcium (8.4-10.2) mg/dL Total Bilirubin (0.2-1.3) mg/dL AST (14-36) U/L ALT (4-34) U/L Alkaline Phosphatase (38-126) U/L NT-Pro-B Natriuret Pep pg/mL Total Protein (6.3-8.2) g/dL Albumin (3.5-5.0) g/dL Urine Color Urine Appearance (Clear) Urine pH (5.0-8.0) Ur Specific [place] (1.001-1.035) Urine Protein (Negative) Urine Glucose (UA) (Negative) Urine Ketones (Negative) Urine Blood (Negative) Urine Nitrite (Negative) Urine Bilirubin (Negative) Urine Urobilinogen (<2.0) mg/dL Ur Leukocyte Esterase (Negative) Urine RBC (0-5) /hpf Urine WBC (0-5) /hpf Ur Squamous Epith Cells (0-4) /hpf Urine Bacteria (None) /hpf Urine Mucus (None) /hpf Acetone, Qual (Negative) Coronavirus (PCR) Not Detected (Not Detectd) Influenza Type A RNA Not Detected (Not Detectd) Influenza Type B (PCR) Not Detected (Not Detectd) 09/24/21 09/24/21 09/24/21 Range/Units 02:03 02:03 02:10 WBC 16.4 H (3.8-10.6) k/uL RBC 4.40 (3.80-5.40) m/uL Hgb 10.0 L (11.4-16.0) gm/dL Hct 33.8 L (34.0-46.0) % MCV 76.8 L (80.0-100.0) fL MCH 22.7 L (25.0-35.0) pg MCHC 29.6 L (31.0-37.0) g/dL RDW 17.6 H (11.5-15.5) % Plt Count 700 H (150-450) k/uL MPV 6.9 Neutrophils % 81 % Lymphocytes % 12 % Monocytes % 4 % Eosinophils % 2 % Basophils % 0 % Neutrophils # 13.3 H (1.3-7.7) k/uL Lymphocytes # 1.9 (1.0-4.8) k/uL Monocytes # 0.6 (0-1.0) k/uL Eosinophils # 0.3 (0-0.7) k/uL Basophils # 0.1 (0-0.2) k/uL Hypochromasia Marked Anisocytosis Slight Microcytosis Slight D-Dimer (<0.60) mg/L FEU Sodium 137 (137-145) mmol/L Potassium 4.6 (3.5-5.1) mmol/L Chloride 100 (98-107) mmol/L Carbon Dioxide 26 (22-30) mmol/L Anion Gap 11 mmol/L BUN 15 (7-17) mg/dL Creatinine 0.84 (0.52-1.04) mg/dL Est GFR (CKD-EPI)AfAm >90 (>60 ml/min/1.73 sqM) Est GFR (CKD-EPI)NonAf 82 (>60 ml/min/1.73 sqM) Glucose 385 H (74-99) mg/dL POC Glucose (mg/dL) 343 H (70-110) mg/dL POC Glu Top Frame Fitter ID [place], Wang Calcium 9.3 (8.4-10.2) mg/dL Total Bilirubin 0.4 (0.2-1.3) mg/dL AST 22 (14-36) U/L ALT 15 (4-34) U/L Alkaline Phosphatase 148 H (38-126) U/L NT-Pro-B Natriuret Pep pg/mL Total Protein 7.2 (6.3-8.2) g/dL Albumin 4.1 (3.5-5.0) g/dL Urine Color Urine Appearance (Clear) Urine pH (5.0-8.0) Ur Specific [place] (1.001-1.035) Urine Protein (Negative) Urine Glucose (UA) (Negative) Urine Ketones (Negative) Urine Blood (Negative) Urine Nitrite (Negative) Urine Bilirubin (Negative) Urine Urobilinogen (<2.0) mg/dL Ur Leukocyte Esterase (Negative) Urine RBC (0-5) /hpf Urine WBC (0-5) /hpf Ur Squamous Epith Cells (0-4) /hpf Urine Bacteria (None) /hpf Urine Mucus (None) /hpf Acetone, Qual Negative (Negative) Coronavirus (PCR) (Not Detectd) Influenza Type A RNA (Not Detectd) Influenza Type B (PCR) (Not Detectd) 09/24/21 09/24/21 09/24/21 Range/Units 03:53 04:53 07:49 WBC (3.8-10.6) k/uL RBC (3.80-5.40) m/uL Hgb (11.4-16.0) gm/dL Hct (34.0-46.0) % MCV (80.0-100.0) fL MCH (25.0-35.0) pg MCHC (31.0-37.0) g/dL RDW (11.5-15.5) % Plt Count (150-450) k/uL MPV Neutrophils % % Lymphocytes % % Monocytes % % Eosinophils % % Basophils % % Neutrophils # (1.3-7.7) k/uL Lymphocytes # (1.0-4.8) k/uL Monocytes # (0-1.0) k/uL Eosinophils # (0-0.7) k/uL Basophils # (0-0.2) k/uL Hypochromasia Anisocytosis Microcytosis D-Dimer (<0.60) mg/L FEU Sodium (137-145) mmol/L Potassium (3.5-5.1) mmol/L Chloride (98-107) mmol/L Carbon Dioxide (22-30) mmol/L Anion Gap mmol/L BUN (7-17) mg/dL Creatinine (0.52-1.04) mg/dL Est GFR (CKD-EPI)AfAm (>60 ml/min/1.73 sqM) Est GFR (CKD-EPI)NonAf (>60 ml/min/1.73 sqM) Glucose (74-99) mg/dL POC Glucose (mg/dL) 377 H 490 H (70-110) mg/dL POC Glu Top Frame Fitter ID Christiana Saavedra [place] Calcium (8.4-10.2) mg/dL Total Bilirubin (0.2-1.3) mg/dL AST (14-36) U/L ALT (4-34) U/L Alkaline Phosphatase (38-126) U/L NT-Pro-B Natriuret Pep pg/mL Total Protein (6.3-8.2) g/dL Albumin (3.5-5.0) g/dL Urine Color Yellow Urine Appearance Clear (Clear) Urine pH 6.0 (5.0-8.0) Ur Specific D[place] 1.014 (1.001-1.035) Urine Protein 1+ H (Negative) Urine Glucose (UA) 3+ H (Negative) Urine Ketones Negative (Negative) Urine Blood Negative (Negative) Urine Nitrite Negative (Negative) Urine Bilirubin Negative (Negative) Urine Urobilinogen <2.0 (<2.0) mg/dL Ur Leukocyte Esterase Trace H (Negative) Urine RBC 1 (0-5) /hpf Urine WBC 5 (0-5) /hpf Ur Squamous Epith Cells 6 H (0-4) /hpf Urine Bacteria Rare H (None) /hpf Urine Mucus Rare H (None) /hpf Acetone, Qual (Negative) Coronavirus (PCR) (Not Detectd) Influenza Type A RNA (Not Detectd) Influenza Type B (PCR) (Not Detectd) 09/24/21 09/24/21 09/24/21 Range/Units 10:02 11:06 12:59 WBC (3.8-10.6) k/uL RBC (3.80-5.40) m/uL Hgb (11.4-16.0) gm/dL Hct (34.0-46.0) % MCV (80.0-100.0) fL MCH (25.0-35.0) pg MCHC (31.0-37.0) g/dL RDW (11.5-15.5) % Plt Count (150-450) k/uL MPV Neutrophils % % Lymphocytes % % Monocytes % % Eosinophils % % Basophils % % Neutrophils # (1.3-7.7) k/uL Lymphocytes # (1.0-4.8) k/uL Monocytes # (0-1.0) k/uL Eosinophils # (0-0.7) k/uL Basophils # (0-0.2) k/uL Hypochromasia Anisocytosis Microcytosis D-Dimer (<0.60) mg/L FEU Sodium (137-145) mmol/L Potassium (3.5-5.1) mmol/L Chloride (98-107) mmol/L Carbon Dioxide (22-30) mmol/L Anion Gap mmol/L BUN (7-17) mg/dL Creatinine (0.52-1.04) mg/dL Est GFR (CKD-EPI)AfAm (>60 ml/min/1.73 sqM) Est GFR (CKD-EPI)NonAf (>60 ml/min/1.73 sqM) Glucose (74-99) mg/dL POC Glucose (mg/dL) 524 H 505 H 474 H (70-110) mg/dL POC Glu Top Frame Fitter Jaskaran Jalloh Geraldine Bowen, Joy Calcium (8.4-10.2) mg/dL Total Bilirubin (0.2-1.3) mg/dL AST (14-36) U/L ALT (4-34) U/L Alkaline Phosphatase (38-126) U/L NT-Pro-B Natriuret Pep pg/mL Total Protein (6.3-8.2) g/dL Albumin (3.5-5.0) g/dL Urine Color Urine Appearance (Clear) Urine pH (5.0-8.0) Ur Specific [place] (1.001-1.035) Urine Protein (Negative) Urine Glucose (UA) (Negative) Urine Ketones (Negative) Urine Blood (Negative) Urine Nitrite (Negative) Urine Bilirubin (Negative) Urine Urobilinogen (<2.0) mg/dL Ur Leukocyte Esterase (Negative) Urine RBC (0-5) /hpf Urine WBC (0-5) /hpf Ur Squamous Epith Cells (0-4) /hpf Urine Bacteria (None) /hpf Urine Mucus (None) /hpf Acetone, Qual (Negative) Coronavirus (PCR) (Not Detectd) Influenza Type A RNA (Not Detectd) Influenza Type B (PCR) (Not Detectd) 09/24/21 09/24/21 09/25/21 Range/Units 17:39 21:14 07:33 WBC (3.8-10.6) k/uL RBC (3.80-5.40) m/uL Hgb (11.4-16.0) gm/dL Hct (34.0-46.0) % MCV (80.0-100.0) fL MCH (25.0-35.0) pg MCHC (31.0-37.0) g/dL RDW (11.5-15.5) % Plt Count (150-450) k/uL MPV Neutrophils % % Lymphocytes % % Monocytes % % Eosinophils % % Basophils % % Neutrophils # (1.3-7.7) k/uL Lymphocytes # (1.0-4.8) k/uL Monocytes # (0-1.0) k/uL Eosinophils # (0-0.7) k/uL Basophils # (0-0.2) k/uL Hypochromasia Anisocytosis Microcytosis D-Dimer (<0.60) mg/L FEU Sodium (137-145) mmol/L Potassium (3.5-5.1) mmol/L Chloride (98-107) mmol/L Carbon Dioxide (22-30) mmol/L Anion Gap mmol/L BUN (7-17) mg/dL Creatinine (0.52-1.04) mg/dL Est GFR (CKD-EPI)AfAm (>60 ml/min/1.73 sqM) Est GFR (CKD-EPI)NonAf (>60 ml/min/1.73 sqM) Glucose (74-99) mg/dL POC Glucose (mg/dL) 208 H 166 H 258 H (70-110) mg/dL POC Glu Top Frame Fitter ID Rhody, Danielle Nafisa, Addyline Rhody, Danielle Calcium (8.4-10.2) mg/dL Total Bilirubin (0.2-1.3) mg/dL AST (14-36) U/L ALT (4-34) U/L Alkaline Phosphatase (38-126) U/L NT-Pro-B Natriuret Pep pg/mL Total Protein (6.3-8.2) g/dL Albumin (3.5-5.0) g/dL Urine Color Urine Appearance (Clear) Urine pH (5.0-8.0) Ur Specific [place] (1.001-1.035) Urine Protein (Negative) Urine Glucose (UA) (Negative) Urine Ketones (Negative) Urine Blood (Negative) Urine Nitrite (Negative) Urine Bilirubin (Negative) Urine Urobilinogen (<2.0) mg/dL Ur Leukocyte Esterase (Negative) Urine RBC (0-5) /hpf Urine WBC (0-5) /hpf Ur Squamous Epith Cells (0-4) /hpf Urine Bacteria (None) /hpf Urine Mucus (None) /hpf Acetone, Qual (Negative) Coronavirus (PCR) (Not Detectd) Influenza Type A RNA (Not Detectd) Influenza Type B (PCR) (Not Detectd) 09/25/21 09/25/21 09/25/21 Range/Units 11:41 11:41 12:01 WBC (3.8-10.6) k/uL RBC (3.80-5.40) m/uL Hgb (11.4-16.0) gm/dL Hct (34.0-46.0) % MCV (80.0-100.0) fL MCH (25.0-35.0) pg MCHC (31.0-37.0) g/dL RDW (11.5-15.5) % Plt Count (150-450) k/uL MPV Neutrophils % % Lymphocytes % % Monocytes % % Eosinophils % % Basophils % % Neutrophils # (1.3-7.7) k/uL Lymphocytes # (1.0-4.8) k/uL Monocytes # (0-1.0) k/uL Eosinophils # (0-0.7) k/uL Basophils # (0-0.2) k/uL Hypochromasia Anisocytosis Microcytosis D-Dimer 0.46 (<0.60) mg/L FEU Sodium (137-145) mmol/L Potassium (3.5-5.1) mmol/L Chloride (98-107) mmol/L Carbon Dioxide (22-30) mmol/L Anion Gap mmol/L BUN (7-17) mg/dL Creatinine (0.52-1.04) mg/dL Est GFR (CKD-EPI)AfAm (>60 ml/min/1.73 sqM) Est GFR (CKD-EPI)NonAf (>60 ml/min/1.73 sqM) Glucose (74-99) mg/dL POC Glucose (mg/dL) 245 H (70-110) mg/dL POC Glu Top Frame Fitter ID Familiacristi Danielle Calcium (8.4-10.2) mg/dL Total Bilirubin (0.2-1.3) mg/dL AST (14-36) U/L ALT (4-34) U/L Alkaline Phosphatase (38-126) U/L NT-Pro-B Natriuret Pep 332 pg/mL Total Protein (6.3-8.2) g/dL Albumin (3.5-5.0) g/dL Urine Color Urine Appearance (Clear) Urine pH (5.0-8.0) Ur Specific [place] (1.001-1.035) Urine Protein (Negative) Urine Glucose (UA) (Negative) Urine Ketones (Negative) Urine Blood (Negative) Urine Nitrite (Negative) Urine Bilirubin (Negative) Urine Urobilinogen (<2.0) mg/dL Ur Leukocyte Esterase (Negative) Urine RBC (0-5) /hpf Urine WBC (0-5) /hpf Ur Squamous Epith Cells (0-4) /hpf Urine Bacteria (None) /hpf Urine Mucus (None) /hpf Acetone, Qual (Negative) Coronavirus (PCR) (Not Detectd) Influenza Type A RNA (Not Detectd) Influenza Type B (PCR) (Not Detectd) 09/25/21 09/25/21 09/26/21 Range/Units 17:09 20:34 06:48 WBC (3.8-10.6) k/uL RBC (3.80-5.40) m/uL Hgb (11.4-16.0) gm/dL Hct (34.0-46.0) % MCV (80.0-100.0) fL MCH (25.0-35.0) pg MCHC (31.0-37.0) g/dL RDW (11.5-15.5) % Plt Count (150-450) k/uL MPV Neutrophils % % Lymphocytes % % Monocytes % % Eosinophils % % Basophils % % Neutrophils # (1.3-7.7) k/uL Lymphocytes # (1.0-4.8) k/uL Monocytes # (0-1.0) k/uL Eosinophils # (0-0.7) k/uL Basophils # (0-0.2) k/uL Hypochromasia Anisocytosis Microcytosis D-Dimer (<0.60) mg/L FEU Sodium (137-145) mmol/L Potassium (3.5-5.1) mmol/L Chloride (98-107) mmol/L Carbon Dioxide (22-30) mmol/L Anion Gap mmol/L BUN (7-17) mg/dL Creatinine (0.52-1.04) mg/dL Est GFR (CKD-EPI)AfAm (>60 ml/min/1.73 sqM) Est GFR (CKD-EPI)NonAf (>60 ml/min/1.73 sqM) Glucose (74-99) mg/dL POC Glucose (mg/dL) 228 H 330 H 324 H (70-110) mg/dL POC Glu Top Frame Fitter ID Danielle Cali Lance, Vinny Bauman, Cindi Calcium (8.4-10.2) mg/dL Total Bilirubin (0.2-1.3) mg/dL AST (14-36) U/L ALT (4-34) U/L Alkaline Phosphatase (38-126) U/L NT-Pro-B Natriuret Pep pg/mL Total Protein (6.3-8.2) g/dL Albumin (3.5-5.0) g/dL Urine Color Urine Appearance (Clear) Urine pH (5.0-8.0) Ur Specific [place] (1.001-1.035) Urine Protein (Negative) Urine Glucose (UA) (Negative) Urine Ketones (Negative) Urine Blood (Negative) Urine Nitrite (Negative) Urine Bilirubin (Negative) Urine Urobilinogen (<2.0) mg/dL Ur Leukocyte Esterase (Negative) Urine RBC (0-5) /hpf Urine WBC (0-5) /hpf Ur Squamous Epith Cells (0-4) /hpf Urine Bacteria (None) /hpf Urine Mucus (None) /hpf Acetone, Qual (Negative) Coronavirus (PCR) (Not Detectd) Influenza Type A RNA (Not Detectd) Influenza Type B (PCR) (Not Detectd) 09/26/21 09/26/21 09/26/21 Range/Units 12:02 15:12 16:41 WBC 15.6 H (3.8-10.6) k/uL RBC 4.24 (3.80-5.40) m/uL Hgb 9.5 L (11.4-16.0) gm/dL Hct 32.9 L (34.0-46.0) % MCV 77.5 L (80.0-100.0) fL MCH 22.3 L (25.0-35.0) pg MCHC 28.8 L (31.0-37.0) g/dL RDW 17.5 H (11.5-15.5) % Plt Count 744 H (150-450) k/uL MPV 7.1 Neutrophils % 81 % Lymphocytes % 12 % Monocytes % 3 % Eosinophils % 2 % Basophils % 1 % Neutrophils # 12.6 H (1.3-7.7) k/uL Lymphocytes # 1.9 (1.0-4.8) k/uL Monocytes # 0.5 (0-1.0) k/uL Eosinophils # 0.3 (0-0.7) k/uL Basophils # 0.1 (0-0.2) k/uL Hypochromasia Marked Anisocytosis Slight Microcytosis Slight D-Dimer (<0.60) mg/L FEU Sodium (137-145) mmol/L Potassium (3.5-5.1) mmol/L Chloride (98-107) mmol/L Carbon Dioxide (22-30) mmol/L Anion Gap mmol/L BUN (7-17) mg/dL Creatinine (0.52-1.04) mg/dL Est GFR (CKD-EPI)AfAm (>60 ml/min/1.73 sqM) Est GFR (CKD-EPI)NonAf (>60 ml/min/1.73 sqM) Glucose (74-99) mg/dL POC Glucose (mg/dL) 312 H 219 H (70-110) mg/dL POC Glu Top Frame Fitter ID Bauman, Cindi Bauman, Cindi Calcium (8.4-10.2) mg/dL Total Bilirubin (0.2-1.3) mg/dL AST (14-36) U/L ALT (4-34) U/L Alkaline Phosphatase (38-126) U/L NT-Pro-B Natriuret Pep pg/mL Total Protein (6.3-8.2) g/dL Albumin (3.5-5.0) g/dL Urine Color Urine Appearance (Clear) Urine pH (5.0-8.0) Ur Specific [place] (1.001-1.035) Urine Protein (Negative) Urine Glucose (UA) (Negative) Urine Ketones (Negative) Urine Blood (Negative) Urine Nitrite (Negative) Urine Bilirubin (Negative) Urine Urobilinogen (<2.0) mg/dL Ur Leukocyte Esterase (Negative) Urine RBC (0-5) /hpf Urine WBC (0-5) /hpf Ur Squamous Epith Cells (0-4) /hpf Urine Bacteria (None) /hpf Urine Mucus (None) /hpf Acetone, Qual (Negative) Coronavirus (PCR) (Not Detectd) Influenza Type A RNA (Not Detectd) Influenza Type B (PCR) (Not Detectd) 09/26/21 09/26/21 09/27/21 Range/Units 18:31 20:27 06:53 WBC (3.8-10.6) k/uL RBC (3.80-5.40) m/uL Hgb (11.4-16.0) gm/dL Hct (34.0-46.0) % MCV (80.0-100.0) fL MCH (25.0-35.0) pg MCHC (31.0-37.0) g/dL RDW (11.5-15.5) % Plt Count (150-450) k/uL MPV Neutrophils % % Lymphocytes % % Monocytes % % Eosinophils % % Basophils % % Neutrophils # (1.3-7.7) k/uL Lymphocytes # (1.0-4.8) k/uL Monocytes # (0-1.0) k/uL Eosinophils # (0-0.7) k/uL Basophils # (0-0.2) k/uL Hypochromasia Anisocytosis Microcytosis D-Dimer (<0.60) mg/L FEU Sodium (137-145) mmol/L Potassium (3.5-5.1) mmol/L Chloride (98-107) mmol/L Carbon Dioxide (22-30) mmol/L Anion Gap mmol/L BUN (7-17) mg/dL Creatinine (0.52-1.04) mg/dL Est GFR (CKD-EPI)AfAm (>60 ml/min/1.73 sqM) Est GFR (CKD-EPI)NonAf (>60 ml/min/1.73 sqM) Glucose (74-99) mg/dL POC Glucose (mg/dL) 329 H 416 H (70-110) mg/dL POC Glu Top Frame Fitter ID Jillian Morales Donna Calcium (8.4-10.2) mg/dL Total Bilirubin (0.2-1.3) mg/dL AST (14-36) U/L ALT (4-34) U/L Alkaline Phosphatase (38-126) U/L NT-Pro-B Natriuret Pep pg/mL Total Protein (6.3-8.2) g/dL Albumin (3.5-5.0) g/dL Urine Color Light Yellow Urine Appearance Clear (Clear) Urine pH 6.0 (5.0-8.0) Ur Specific Donalds 1.015 (1.001-1.035) Urine Protein 1+ H (Negative) Urine Glucose (UA) Negative (Negative) Urine Ketones Negative (Negative) Urine Blood Negative (Negative) Urine Nitrite Negative (Negative) Urine Bilirubin Negative (Negative) Urine Urobilinogen <2.0 (<2.0) mg/dL Ur Leukocyte Esterase Negative (Negative) Urine RBC <1 (0-5) /hpf Urine WBC 6 H (0-5) /hpf Ur Squamous Epith Cells 2 (0-4) /hpf Urine Bacteria Many H (None) /hpf Urine Mucus Rare H (None) /hpf Acetone, Qual (Negative) Coronavirus (PCR) (Not Detectd) Influenza Type A RNA (Not Detectd) Influenza Type B (PCR) (Not Detectd) 09/27/21 Range/Units 11:41 WBC (3.8-10.6) k/uL RBC (3.80-5.40) m/uL Hgb (11.4-16.0) gm/dL Hct (34.0-46.0) % MCV (80.0-100.0) fL MCH (25.0-35.0) pg MCHC (31.0-37.0) g/dL RDW (11.5-15.5) % Plt Count (150-450) k/uL MPV Neutrophils % % Lymphocytes % % Monocytes % % Eosinophils % % Basophils % % Neutrophils # (1.3-7.7) k/uL Lymphocytes # (1.0-4.8) k/uL Monocytes # (0-1.0) k/uL Eosinophils # (0-0.7) k/uL Basophils # (0-0.2) k/uL Hypochromasia Anisocytosis Microcytosis D-Dimer (<0.60) mg/L FEU Sodium (137-145) mmol/L Potassium (3.5-5.1) mmol/L Chloride (98-107) mmol/L Carbon Dioxide (22-30) mmol/L Anion Gap mmol/L BUN (7-17) mg/dL Creatinine (0.52-1.04) mg/dL Est GFR (CKD-EPI)AfAm (>60 ml/min/1.73 sqM) Est GFR (CKD-EPI)NonAf (>60 ml/min/1.73 sqM) Glucose (74-99) mg/dL POC Glucose (mg/dL) 351 H (70-110) mg/dL POC Glu Top Frame Fitter ID Jannet Witt Calcium (8.4-10.2) mg/dL Total Bilirubin (0.2-1.3) mg/dL AST (14-36) U/L ALT (4-34) U/L Alkaline Phosphatase (38-126) U/L NT-Pro-B Natriuret Pep pg/mL Total Protein (6.3-8.2) g/dL Albumin (3.5-5.0) g/dL Urine Color Urine Appearance (Clear) Urine pH (5.0-8.0) Ur Specific Donalds (1.001-1.035) Urine Protein (Negative) Urine Glucose (UA) (Negative) Urine Ketones (Negative) Urine Blood (Negative) Urine Nitrite (Negative) Urine Bilirubin (Negative) Urine Urobilinogen (<2.0) mg/dL Ur Leukocyte Esterase (Negative) Urine RBC (0-5) /hpf Urine WBC (0-5) /hpf Ur Squamous Epith Cells (0-4) /hpf Urine Bacteria (None) /hpf Urine Mucus (None) /hpf Acetone, Qual (Negative) Coronavirus (PCR) (Not Detectd) Influenza Type A RNA (Not Detectd) Influenza Type B (PCR) (Not Detectd) Disposition Clinical Impression: Hyperglycemia, Acute upper respiratory infection Disposition: ADMITTED IP TO THIS HOSP Condition: Fair Is patient prescribed a controlled substance at d/c from ED?: No
[2021-09-24 02:09] LABS: Anisocytosis Slight; Basophils # (A) 0.1 k/uL (0-0.2); Basophils % (A) 0 %; Eosinophils # (A) 0.3 k/uL (0-0.7); Eosinophils % (A) 2 %; HCT 33.8 % (34.0-46.0); Hypochromasia Marked; Lymphocytes # (A) 1.9 k/uL (1.0-4.8); Lymphocytes % (A) 12 %; MCH 22.7 pg (25.0-35.0); MCHC 29.6 g/dL (31.0-37.0); MCV 76.8 fL (80.0-100.0); Mean Platelet Volume 6.9; Microcytosis Slight; Monocytes # (A) 0.6 k/uL (0-1.0); Monocytes % (A) 4 %; Neutrophils # (A) 13.3 k/uL (1.3-7.7); Neutrophils % (A) 81 %; Platelet Count 700 k/uL (150-450); RDW 17.6 % (11.5-15.5); WBC 16.4 k/uL (3.8-10.6)
--- NOTE | 2021-09-24 02:12 | XR ---
EXAM: XR Chest, 2 Views CLINICAL HISTORY: ITS.REASON XR Reason: cough TECHNIQUE: Frontal and lateral views of the chest. COMPARISON: 08/30/2021. FINDINGS: Lungs: There is a 3.2 x 2.4 cm ovoid density in the left midlung. Right lung is well aerated. Pleural space: Unremarkable. No pneumothorax. Heart: There is cardiomegaly. Mediastinum: Unremarkable. Bones/joints: Sternotomy wires are noted in place. Osteopenia. Normal alignment of the thoracic spine. IMPRESSION: 1. Ovoid density in the left midlung differential etiologies which include pneumonia. Neoplasm or metastatic disease however cannot be excluded. CT imaging of the chest is suggested for further correlation. 2. Cardiomegaly per 3. Osteopenia.
[2021-09-24 02:14] LABS: Glucose,Whole Blood 343 mg/dL (70-110)
[2021-09-24 02:23] LABS: ALT 15 U/L (4-34); AST 22 U/L (14-36); African American GFR (CKD) >90 (>60 ml/min/1.73 sqM); Albumin 4.1 g/dL (3.5-5.0); Alkaline Phosphatase 148 U/L (38-126); Anion Gap 11 mmol/L; Blood Urea Nitrogen 15 mg/dL (7-17); Calcium 9.3 mg/dL (8.4-10.2); Carbon Dioxide 26 mmol/L (22-30); Chloride 100 mmol/L (98-107); Glucose 385 mg/dL (74-99); Non-African American GFR(CKD) 82 (>60 ml/min/1.73 sqM); Potassium 4.6 mmol/L (3.5-5.1); Sodium 137 mmol/L (137-145); Total Bilirubin 0.4 mg/dL (0.2-1.3); Total Protein 7.2 g/dL (6.3-8.2)
[2021-09-24] MEDS ORDERED: KETOROLAC 15 MG/ML 1 ML VIAL IVP STA (03:03)
[2021-09-24 04:37] LABS: Appearance,Urine Clear (Clear); Bacteria,Urine Rare /hpf; Bilirubin,Urine Negative (Negative); Blood,Urine Negative (Negative); Color,Urine Yellow; Glucose,Urine (UA) 3+ (Negative); Ketones,Urine Negative (Negative); Leukocyte Esterase,Urine Trace (Negative); Mucus,Urine Rare /hpf; Nitrite,Urine Negative (Negative); Protein,Urine 1+ (Negative); RBC,Urine 1 /hpf (0-5); Specific Gravity,Urine 1.014 (1.001-1.035); Squamous Epithelial Cell,Urine 6 /hpf (0-4); Urobilinogen,Urine <2.0 mg/dL (<2.0); WBC,Urine 5 /hpf (0-5)
[2021-09-24 04:57] LABS: Glucose,Whole Blood 377 mg/dL (70-110)
--- NOTE | 2021-09-24 07:14 | CT ---
EXAM: CT Chest Without Intravenous Contrast CLINICAL HISTORY: ITS.REASON CT Reason: cough. L lung nodule TECHNIQUE: Axial computed tomography images of the chest without intravenous contrast. CTDI is 14.7 mGy and DLP is 523.8 mGy-cm. This CT exam was performed using one or more of the following dose reduction techniques: automated exposure control, adjustment of the mA and/or kV according to patient size, and/or use of iterative reconstruction technique. COMPARISON: 03/03/2022 FINDINGS: Lungs: Inferior left upper lobe atelectasis. No mass. No consolidation. 5 mm solid pulmonary nodule in the lateral right base (series 204 image 34), stable in size from 03/03/2021. Pleural space: Unremarkable. No pneumothorax. No significant effusion. Heart: Median sternotomy wires in place. No cardiomegaly. No significant pericardial effusion. Mild coronary artery calcifications. Bones/joints: Healing left anterior third and sixth rib fracture deformities with surrounding callus. No acute fracture. No dislocation. Soft tissues: Unremarkable. Vasculature: Unremarkable. No thoracic aortic aneurysm. Lymph nodes: Unremarkable. No enlarged lymph nodes. IMPRESSION: 5 mm solid pulmonary nodule in the lateral right base (series 204 image 34), stable in size from 03/03/2021. In the absence of risk factors for lung cancer, no further imaging followup needed. Optional 12 month follow-up examination may be performed to demonstrate stability if there is high risk for lung cancer.
[2021-09-24] MEDS: INSULIN ASPART (NovoLOG) 100 UNIT/ML VIAL SQ SCH ×5 (07:58→22:21)
[2021-09-24 07:59] LABS: Glucose,Whole Blood 490 mg/dL (70-110)
[2021-09-24] MEDS ORDERED: NALOXONE 0.4 MG/ML 1 ML VIAL IV PRN (08:06)
[2021-09-24] MEDS: HYDROcodone/APAP 5-325MG 1 EACH TAB PO PRN ×2 (09:12→20:46)
[2021-09-24] MEDS: FENOFIBRATE 160 MG TAB PO SCH (09:12)
[2021-09-24] MEDS: lisinopriL 20 MG TAB PO SCH (09:12)
[2021-09-24] MEDS: metFORMIN 500 MG TAB PO SCH (09:12)
[2021-09-24] MEDS: SODIUM CHLORIDE 0.9% 1,000 ML IV SCH ×2 (09:12→17:53)
[2021-09-24 10:13] LABS: Glucose,Whole Blood 524 mg/dL (70-110)
[2021-09-24 11:07] LABS: Glucose,Whole Blood 505 mg/dL (70-110)
[2021-09-24] MEDS ORDERED: INSULIN DETEMIR (LEVEMIR) 100 UNIT/ML SYR SQ SCH (12:00)
[2021-09-24] MEDS ORDERED: INSULIN ASPART (NovoLOG) 100 UNIT/ML VIAL SQ SCH (12:30)
[2021-09-24 13:01] LABS: Glucose,Whole Blood 474 mg/dL (70-110)
[2021-09-24] MEDS: ACETAMINOPHEN TAB 325 MG TAB PO PRN (15:36)
[2021-09-24] MEDS: ALBUTEROL NEBULIZED 2.5 MG/3 ML INHALATION PRN (15:54)
--- NOTE | 2021-09-24 16:07 | HP ---
HISTORY AND PHYSICAL CHIEF COMPLAINT: Uncontrolled diabetes. HISTORY OF PRESENT ILLNESS: This is another admission for this noncompliant in managing her diabetes. She does not take her insulin appropriately. When she does not, she comes in with hyperglycemia, which is the case today. She has had no abdominal pain. She usually has a problem with pancreatitis, especially when her blood sugars are out of control. She also has significant hypertriglyceridemia, which has been a causative factor in her chronic relapsing pancreatitis. REVIEW OF SYSTEMS: She has had no neurologic problems, change in the vision or the hearing, chest pain, shortness of breath, nausea, vomiting, hematemesis, melena, hematochezia, jaundice, renal failure, dysuria, frequency, urgency, incontinence, etc. Past medical history, family history, and personal and social histories are all otherwise unremarkable or unchanged from her recent admitting and discharge summaries. There is confusion on the insulin. She states she takes long-acting insulin in a much lower dose than has been prescribed. PHYSICAL EXAMINATION: Blood pressure is 132/90 with a pulse of 84, respirations of 38, and she is afebrile. In general she appeared to be overweight and in no acute distress. Skin color is normal. Skin is warm and dry. Head, ears, eyes, nose and are normal. Mucous membranes are dry and the tongue is somewhat atrophic in appearance. Neck veins are not distended. Chest is clear to auscultation and percussion. Cardiac exam demonstrates sinus rhythm. The abdomen is protuberant, soft and nontender. Extremities are normal. Neurologically she is intact. She is admitted to the hospital with the diagnoses: 1. Uncontrolled type 2 insulin-dependent diabetes mellitus. 2. Dehydration. 3. Hypertriglyceridemia. 4. Obesity. 5. Chronic relapsing pancreatitis. PLAN: 1. Bedrest. 2. IV fluids. 3. Control diabetes with increased dosages of insulin. MMODL / IJN: [id number] /
[2021-09-24 17:40] LABS: Glucose,Whole Blood 208 mg/dL (70-110)
[2021-09-24] MEDS: ATORVASTATIN 80 MG TAB PO SCH (20:45)
[2021-09-24 21:15] LABS: Glucose,Whole Blood 166 mg/dL (70-110)
[2021-09-25] MEDS: ACETAMINOPHEN TAB 325 MG TAB PO PRN ×2 (00:31→07:56)
[2021-09-25] MEDS: SODIUM CHLORIDE 0.9% 1,000 ML IV SCH ×3 (01:58→19:26)
[2021-09-25] MEDS: HYDROcodone/APAP 5-325MG 1 EACH TAB PO PRN ×4 (03:27→21:58)
[2021-09-25 07:35] LABS: Glucose,Whole Blood 258 mg/dL (70-110)
[2021-09-25] MEDS: metFORMIN 500 MG TAB PO SCH (07:55)
[2021-09-25] MEDS: lisinopriL 20 MG TAB PO SCH (07:55)
[2021-09-25] MEDS: INSULIN ASPART (NovoLOG) 100 UNIT/ML VIAL SQ SCH ×7 (07:55→21:02)
[2021-09-25] MEDS: INSULIN DETEMIR (LEVEMIR) 100 UNIT/ML SYR SQ SCH (07:55)
[2021-09-25] MEDS: FENOFIBRATE 160 MG TAB PO SCH (07:56)
[2021-09-25 12:02] LABS: Glucose,Whole Blood 245 mg/dL (70-110)
[2021-09-25 17:11] LABS: Glucose,Whole Blood 228 mg/dL (70-110)
[2021-09-25] MEDS: ATORVASTATIN 80 MG TAB PO SCH (19:24)
--- NOTE | 2021-09-25 19:57 | HP ---
HISTORY AND PHYSICAL CHIEF COMPLAINT: Hyperglycemia. HISTORY OF PRESENT ILLNESS: This is another admission for this 51-year-old obese white female who continually fails to take care of her diabetes and comes in with elevated blood sugars. She also has a history of chronic relapsing pancreatitis secondary to uncontrolled diabetes and hypertriglyceridemia. She came into the emergency room with an elevated blood sugar of around 300 or 400 and it conor even further to around 600. She was admitted. REVIEW OF SYSTEMS: She denies any neurologic problems, difficulty with vision or hearing, chest pain, shortness of breath, nausea, vomiting, hematochezia, urinary complaints, etc. Past medical history, family history, and personal and social histories are all otherwise unremarkable or noncontributory or unchanged. PHYSICAL EXAMINATION: Blood pressure is 135/80 with a pulse of 93, respirations of 40, and she is afebrile. In general she appeared to be overweight and in no acute distress. Skin color was normal. Skin was warm and dry. Lymph nodes were not enlarged. Head, ears, eyes, nose, mouth and throat were normal. The chest demonstrated occasional rales and rhonchi. Cardiac exam demonstrated normal sinus rhythm and no murmurs or extra sounds. The abdomen was soft and nontender without any visceromegaly or masses. Bowel sounds were present. Extremities were normal. Neurologically she is intact. She is admitted to the hospital with diagnoses: 1. Uncontrolled insulin-dependent diabetes mellitus. 2. History of shortness of breath. 3. History of hypertriglyceridemia. 4. History of chronic relapsing pancreatitis. PLAN: 1. Bedrest. 2. IV fluids. 3. Insulin management of her diabetes. MMODL / IJN: [id number] /
--- NOTE | 2021-09-25 20:04 | PN ---
PROGRESS NOTE DATE OF SERVICE: 09/25/2021 CHIEF COMPLAINT: Uncontrolled diabetes. HISTORY OF PRESENT ILLNESS: This lady is doing a little bit better. Blood sugars are coming down. She denies any abdominal pain or vomiting. PHYSICAL EXAMINATION: Vital signs are normal. The chest is clear. The cardiac exam is normal. The abdomen is protuberant, soft and nontender. IMPRESSION: Uncontrolled diabetes. PLAN: Continue management of her diabetes and probably home tomorrow. MMODL / IJN: [id number] /
[2021-09-25] MEDS: ALBUTEROL NEBULIZED 2.5 MG/3 ML INHALATION PRN (20:11)
[2021-09-25 20:35] LABS: Glucose,Whole Blood 330 mg/dL (70-110)
[2021-09-26] MEDS: SODIUM CHLORIDE 0.9% 1,000 ML IV SCH ×4 (01:01→21:09)
[2021-09-26] MEDS: ACETAMINOPHEN TAB 325 MG TAB PO PRN (02:01)
[2021-09-26] MEDS: ONDANSETRON 4 MG/2 ML VIAL IVP PRN (04:57)
[2021-09-26] MEDS: HYDROcodone/APAP 5-325MG 1 EACH TAB PO PRN ×4 (05:58→23:53)
[2021-09-26 06:50] LABS: Glucose,Whole Blood 324 mg/dL (70-110)
[2021-09-26] MEDS: ALBUTEROL NEBULIZED 2.5 MG/3 ML INHALATION PRN (07:57)
[2021-09-26] MEDS: INSULIN DETEMIR (LEVEMIR) 100 UNIT/ML SYR SQ SCH (08:55)
[2021-09-26] MEDS: INSULIN ASPART (NovoLOG) 100 UNIT/ML VIAL SQ SCH ×8 (08:55→21:08)
[2021-09-26] MEDS: metFORMIN 500 MG TAB PO SCH (08:56)
[2021-09-26] MEDS: lisinopriL 20 MG TAB PO SCH (08:56)
[2021-09-26] MEDS: FENOFIBRATE 160 MG TAB PO SCH (08:56)
[2021-09-26] MEDS ORDERED: INSULIN DETEMIR (LEVEMIR) 100 UNIT/ML SYR SQ SCH (10:45)
[2021-09-26 12:04] LABS: Glucose,Whole Blood 312 mg/dL (70-110)
[2021-09-26 15:31] LABS: Anisocytosis Slight; Basophils # (A) 0.1 k/uL (0-0.2); Basophils % (A) 1 %; Eosinophils # (A) 0.3 k/uL (0-0.7); Eosinophils % (A) 2 %; HCT 32.9 % (34.0-46.0); HGB 9.5 gm/dL (11.4-16.0); Hypochromasia Marked; Lymphocytes # (A) 1.9 k/uL (1.0-4.8); Lymphocytes % (A) 12 %; MCH 22.3 pg (25.0-35.0); MCHC 28.8 g/dL (31.0-37.0); MCV 77.5 fL (80.0-100.0); Mean Platelet Volume 7.1; Microcytosis Slight; Monocytes # (A) 0.5 k/uL (0-1.0); Monocytes % (A) 3 %; Neutrophils # (A) 12.6 k/uL (1.3-7.7); Neutrophils % (A) 81 %; Platelet Count 744 k/uL (150-450); RBC 4.24 m/uL (3.80-5.40); RDW 17.5 % (11.5-15.5); WBC 15.6 k/uL (3.8-10.6)
--- NOTE | 2021-09-26 16:08 | XR ---
EXAMINATION TYPE: XR chest 2V DATE OF EXAM: 09/26/2021 COMPARISON: X-ray dated 09/24/2021 HISTORY: Cough and shortness of breath TECHNIQUE: Frontal and lateral views of the chest are obtained. FINDINGS: Mild interval regression of the previously seen heterogeneous patchy opacity in the left midlung zone yet not completely resolved. This could represent a regressing pneumonia, please correlate clinicall y. Follow-up to complete resolution after appropriate treatment is advised. Grossly unremarkable remainder of the lungs. No sizable pleural effusion or definite pneumothorax. Sl ightly increased cardiac transverse diameter. Sternotomy wire sutures. IMPRESSION: Interval changes as described above.
[2021-09-26] MEDS: IPRATROPIUM-ALBUTEROL 3 ML NEB INHALATION SCH ×2 (16:11→20:32)
[2021-09-26 16:43] LABS: Glucose,Whole Blood 219 mg/dL (70-110)
[2021-09-26 18:55] LABS: Appearance,Urine Clear (Clear); Bacteria,Urine Many /hpf; Bilirubin,Urine Negative (Negative); Blood,Urine Negative (Negative); Color,Urine Light Yellow; Glucose,Urine (UA) Negative (Negative); Ketones,Urine Negative (Negative); Leukocyte Esterase,Urine Negative (Negative); Mucus,Urine Rare /hpf; Nitrite,Urine Negative (Negative); Protein,Urine 1+ (Negative); RBC,Urine <1 /hpf (0-5); Specific Gravity,Urine 1.015 (1.001-1.035); Squamous Epithelial Cell,Urine 2 /hpf (0-4); Urobilinogen,Urine <2.0 mg/dL (<2.0); WBC,Urine 6 /hpf (0-5)
--- NOTE | 2021-09-26 19:38 | PN ---
PROGRESS NOTE CHIEF COMPLAINT: Uncontrolled diabetes. HISTORY OF PRESENT ILLNESS: This lady's blood sugars are still up slightly, and it was felt that she might be able to go home, but she did have a low-grade temperature and she has had a slightly productive cough. PHYSICAL EXAMINATION: Chest demonstrates occasional rhonchi. Lymph nodes are not enlarged. The abdomen is soft and nontender. It is protuberant. IMPRESSION: 1. Uncontrolled diabetes. 2. Bronchitis. 3. Fever of undetermined origin. PLAN: Hold discharge and evaluate further her elevated temperature and bronchitis. MMODL / IJN: [id number] /
[2021-09-26 20:28] LABS: Glucose,Whole Blood 329 mg/dL (70-110)
[2021-09-26] MEDS: ATORVASTATIN 80 MG TAB PO SCH (21:09)
[2021-09-27] MEDS: SODIUM CHLORIDE 0.9% 1,000 ML IV SCH ×3 (03:04→21:00)
[2021-09-27] MEDS: HYDROcodone/APAP 5-325MG 1 EACH TAB PO PRN ×4 (06:01→23:41)
[2021-09-27 07:05] LABS: Glucose,Whole Blood 416 mg/dL (70-110)
[2021-09-27] MEDS: IPRATROPIUM-ALBUTEROL 3 ML NEB INHALATION SCH ×4 (07:05→19:43)
[2021-09-27] MEDS: INSULIN ASPART (NovoLOG) 100 UNIT/ML VIAL SQ SCH ×7 (08:28→20:59)
[2021-09-27] MEDS: INSULIN DETEMIR (LEVEMIR) 100 UNIT/ML SYR SQ SCH ×2 (08:29→20:59)
[2021-09-27] MEDS: metFORMIN 500 MG TAB PO SCH ×2 (08:29→08:31)
[2021-09-27] MEDS: lisinopriL 20 MG TAB PO SCH (08:29)
[2021-09-27] MEDS: FENOFIBRATE 160 MG TAB PO SCH (08:30)
[2021-09-27 11:47] LABS: Glucose,Whole Blood 351 mg/dL (70-110)
[2021-09-27 11:53] VITALS: BMI 44.3
[2021-09-27] MEDS: AMPICILLIN-SULBACTAM 1.5 GM in SODIUM CHLORIDE 0.9% 50 ML IVPB SCH ×2 (15:31→23:41)
--- NOTE | 2021-09-27 16:16 | PN ---
PROGRESS NOTE CHIEF COMPLAINT: Uncontrolled diabetes. HISTORY OF PRESENT ILLNESS: This lady was doing fairly well, but her sugars remain high and she has been running low-grade temps. It is suggested that she may have pneumonia on chest x-ray. PHYSICAL EXAMINATION: She does have decreased breath sounds and scattered rales at the bases. Cardiac exam is normal and the abdomen is protuberant. IMPRESSION: 1. Uncontrolled diabetes. 2. Probable developing bronchial pneumonia. 3. History of chronic pancreatitis. 4. Hypertriglyceridemia. PLAN: 1. Start IV antibiotics. 2. Continue with updrafts. 3. Hold discharge. MMODL / IJN: [id number] /
[2021-09-27 16:55] LABS: Glucose,Whole Blood 433 mg/dL (70-110)
[2021-09-27 20:05] LABS: Glucose,Whole Blood 452 mg/dL (70-110)
[2021-09-27] MEDS: ATORVASTATIN 80 MG TAB PO SCH (20:59)
[2021-09-28] MEDS: ALBUTEROL NEBULIZED 2.5 MG/3 ML INHALATION PRN (00:06)
[2021-09-28] MEDS: IPRATROPIUM-ALBUTEROL 3 ML NEB INHALATION SCH ×4 (06:13→19:22)
[2021-09-28 07:07] LABS: Glucose,Whole Blood 262 mg/dL (70-110)
[2021-09-28] MEDS: INSULIN ASPART (NovoLOG) 100 UNIT/ML VIAL SQ SCH ×7 (07:50→21:30)
[2021-09-28] MEDS: FENOFIBRATE 160 MG TAB PO SCH (07:51)
[2021-09-28] MEDS: HYDROcodone/APAP 5-325MG 1 EACH TAB PO PRN ×3 (07:51→23:12)
[2021-09-28] MEDS: lisinopriL 20 MG TAB PO SCH (07:53)
[2021-09-28] MEDS: AMPICILLIN-SULBACTAM 1.5 GM in SODIUM CHLORIDE 0.9% 50 ML IVPB SCH ×3 (07:57→23:12)
[2021-09-28] MEDS: SODIUM CHLORIDE 0.9% 1,000 ML IV SCH ×3 (08:12→21:31)
[2021-09-28 11:31] LABS: Anisocytosis Slight; Basophils # (A) 0.1 k/uL (0-0.2); Basophils % (A) 1 %; Eosinophils # (A) 0.1 k/uL (0-0.7); Eosinophils % (A) 1 %; HCT 32.4 % (34.0-46.0); HGB 9.2 gm/dL (11.4-16.0); Hypochromasia Marked; Lymphocytes # (A) 0.7 k/uL (1.0-4.8); Lymphocytes % (A) 5 %; MCH 22.5 pg (25.0-35.0); MCHC 28.3 g/dL (31.0-37.0); MCV 79.3 fL (80.0-100.0); Microcytosis Slight; Monocytes # (A) 0.5 k/uL (0-1.0); Monocytes % (A) 3 %; Neutrophils # (A) 12.1 k/uL (1.3-7.7); Neutrophils % (A) 89 %; Platelet Count 700 k/uL (150-450); RBC 4.09 m/uL (3.80-5.40); RDW 17.6 % (11.5-15.5); WBC 13.7 k/uL (3.8-10.6)
[2021-09-28 11:36] LABS: ALT 15 U/L (4-34); AST 37 U/L (14-36); African American GFR (CKD) >90 (>60 ml/min/1.73 sqM); Albumin 3.5 g/dL (3.5-5.0); Albumin/Globulin Ratio 1.1; Alkaline Phosphatase 166 U/L (38-126); Anion Gap 12 mmol/L; Blood Urea Nitrogen 14 mg/dL (7-17); Calcium 8.7 mg/dL (8.4-10.2); Carbon Dioxide 24 mmol/L (22-30); Chloride 99 mmol/L (98-107); Globulin 3.1 g/dL; Glucose 256 mg/dL (74-99); Non-African American GFR(CKD) 86 (>60 ml/min/1.73 sqM); Potassium 5.1 mmol/L (3.5-5.1); Sodium 135 mmol/L (137-145); Total Bilirubin 0.4 mg/dL (0.2-1.3); Total Protein 6.6 g/dL (6.3-8.2)
[2021-09-28 11:58] LABS: Glucose,Whole Blood 225 mg/dL (70-110)
[2021-09-28] MEDS ORDERED: VANCOMYCIN IV PER PHARMACY 1 EACH MISC MISCELLANE PRN (14:43)
--- NOTE | 2021-09-28 16:51 | P.CONS ---
History of Present Illness - Reason for Consult Consult date: 09/28/21 Fever, left arm sweling Requesting physician: Guillermo Cerda - Chief Complaint fever and pain to left arm x 1 day - History of Present Illness History of Present Illness : Patient is a 51-year female presenting to the hospital 4 days ago for evaluation of scratchy throat and nasal congestion and a nonproductive cough symptom has been going on for about a week before presentation to the hospital patient on arrival to the ER was afebrile however the patient started running a fever of the last 2 days with a temperature of 101.7 F this morning patient did have a evidence of hypoxemia on morning of 09/27/2021 when she dropped down to 88% and is currently on a 3 L nasal cannula, the patient currently complaining of shortness of breath and she also have a cough moderate intensity but unable to bring up any sputum patient denies having any nausea no vomiting no abdominal pain or any diarrhea patient did have IV to the left upper extremity placed in the ER and apparently got infected with more pain swelling or redness and was subsequently discontinued because of the fever and left upper extremity IV site cellulitis infectious disease was consulted for further management patient did have a chest x-ray on admission ovoid density in the left midlung concerning for pneumonia she did have a CT of the chest which shows some atelectasis no mass and no consolidation there was small 5 mm solid pulmonary nodule Review of system: CONSTITUTIONAL: Positive for weakness fever. EYES: No complaint. ENT: No complaint. RESPIRATORY: As per history of present illness. CARDIOVASCULAR: No complaint. GENITOURINARY: No complaint. GASTROINTESTINAL: No complaint. MUSCULOSKELETAL: No complaint. INTEGUMENTARY : As per history of present illness. PSYCHOLOGIC: No complaint. ENDOCRINE: No complaint. NEUROLOGIC: No complaint. Past medical history : Reviewed, documented below Past surgical history : Reviewed, documented below Social history: Reviewed, documented below Medications: Reviewed, as documented below EXAMINATION: Vital sigans= Reviewed and documented below GENERAL DESCRIPTION: Middle-aged female lying in bed, no distress. No tachypnea or accessory muscle of respiration use. HEENT: Shows Pallor , no scleral icterus. Oral mucous membrane is dry. NECK: Trachea central, no thyromegaly. LUNGS: Unlabored breathing. Coarse breath sounds bilaterally. No wheeze or crackle. HEART: S1, S2, regular rate and rhythm. ABDOMEN: Soft, no tenderness , guarding or rigidity EXTREMITIES: No edema feet SKIN: Left upper extremity site of previous IV did have minimal induration and redness and is tender to touch. NEUROLOGICAL: The patient is awake, alert, oriented x3, mood and affect normal. LABS AND RADIOLOGY: Reviewed results see below Assessment : 1patient with sepsis in this patient who do have a fever elevated white count with a painful lump to the left upper extremity from a previous IV site likely representing IV site infection and will need to cover for the gram- positive skin barry such as MRSA. 2patient presented to the hospital with shortness of breath and cough CT was negative for any consolidation more likely COPD exacerbation and tracheobronchitis Plan: 1-vancomycin pharmacy to dose target trough of 15 while watching kidney function and vancomycin trough closely 2-blood cultures will be followed 3-we will check CRP and procalcitonin and obtain sputum for gram stain and culture if available We will follow on clinical condition and cultures to further adjust medication if needed Thank you for this consultation we will follow the patient along with you Past Medical History Past Medical History: Diabetes Mellitus, GERD/Reflux, Hyperlipidemia, Hypertension, Syncope Additional Past Medical History / Comment(s): Pt recently admitted to [facility] on 07/21/21 with uncontrolled IDDM and hyperkalemia. Other hx: Recurrent pancreatitis, hypertriglyceridemia, elevated lipase, IDDM type II, UTI, chronic low back pain, bulging discs, dental abscesses in past. History of Any Multi-Drug Resistant Organisms: None Reported Past Surgical History: Tubal Ligation Additional Past Surgical History / Comment(s): Age 7 had VSD repair Past Anesthesia/Blood Transfusion Reactions: No Reported Reaction Past Psychological History: No Psychological Hx Reported Additional Psychological History / Comment(s): She uses no assistive devices. She does not drive. She gets to appointments by walking or using the bus system. She has a glucometer at home. Smoking Status: Former smoker Past Alcohol Use History: None Reported Past Drug Use History: None Reported - Past Family History Mother Family Medical History: No Reported History Additional Family Medical History / Comment(s): Mother was healthy. She is , pt cannot recall cause of . Father Family Medical History: Hypertension, Pneumonia Additional Family Medical History / Comment(s): Father at the age of 67yrs from pneumonia Medications and Allergies Home Medications Medication Instructions Recorded Confirmed Type Fenofibrate [Lofibra] 160 mg PO DAILY #30 tab 03/23/19 09/24/21 Rx Atorvastatin [Lipitor] 80 mg PO HS 06/25/19 09/24/21 History lisinopriL 40 mg PO DAILY 09/24/20 09/24/21 History metFORMIN HCL [Glucophage] 500 mg PO DAILY 09/24/20 09/24/21 History traZODone HCL 50 - 100 mg PO HS PRN 01/11/21 09/24/21 History Ergocalciferol (Vitamin D2) 1,250 mcg PO TU 03/03/21 09/24/21 History [Drisdol (50,000 Iu)] Esomeprazole Magnesium [NexIUM] 20 mg PO DAILY 03/28/21 09/24/21 History Albuterol Inhaler [Ventolin Hfa 2 puff INHALATION RT-QID PRN 07/28/21 09/24/21 History Inhaler] INSULIN ASPART (NovoLOG) [NovoLOG 18 unit SQ AC-TID 09/24/21 09/24/21 History (formulary)] Insulin Detemir (Levemir) [Levemir] 50 unit SQ DAILY@0700 30 Days #1 09/26/21 Rx pen Allergies Allergy/AdvReac Type Severity Reaction Status Date / Time [facility] Allergy Rash/Hives Verified 09/24/21 11:15 Physical Exam Vitals: Vital Signs Temp Pulse Pulse Resp BP BP Pulse Ox 09/28/21 10:15 99.3 F 09/28/21 07:39 101.7 F H 52 L 20 120/51 100 09/28/21 06:23 84 09/28/21 06:13 76 09/28/21 02:18 100.2 F H 74 18 129/69 95 09/28/21 00:19 80 09/28/21 00:06 80 91 L 09/27/21 19:57 80 09/27/21 19:43 77 09/27/21 19:37 18 09/27/21 18:55 99.6 F 86 17 134/63 94 L 09/27/21 16:13 92 09/27/21 15:58 80 91 L 09/27/21 13:53 100.1 F H 61 18 118/65 93 L 09/27/21 11:29 77 09/27/21 11:14 76 Intake and Output 09/27/21 09/28/21 09/28/21 22:59 06:59 14:59 Intake Total 118 Balance 118 Intake: Oral 118 Other: Voiding Method Toilet # Voids 2 Results CBC & Chem 7: 09/28/21 07:19 09/28/21 07:19 Labs: Abnormal Lab Results - Last 24 Hours (Table) 09/27/21 09/27/21 09/27/21 Range/Units 11:41 16:53 20:04 POC Glucose (mg/dL) 351 H 433 H 452 H (70-110) mg/dL 09/28/21 Range/Units 07:06 POC Glucose (mg/dL) 262 H (70-110) mg/dL Microbiology - Last 24 Hours (Table) 09/26/21 15:12 Blood Culture - Preliminary Blood No Growth after 24 hours
[2021-09-28 17:03] LABS: Glucose,Whole Blood 362 mg/dL (70-110)
[2021-09-28] MEDS: ACETAMINOPHEN TAB 325 MG TAB PO PRN (17:50)
[2021-09-28] MEDS: VANCOMYCIN 1,750 MG in SODIUM CHLORIDE 0.9% 500 ML 500 ML IVPB SCH (17:51)
--- NOTE | 2021-09-28 20:30 | XR ---
EXAMINATION TYPE: XR chest 2V DATE OF EXAM: 09/28/2021 COMPARISON: X-ray dated 09/26/2021 HISTORY: Pneumonitis TECHNIQUE: Frontal and lateral views of the chest are obtained. FINDINGS: Persistent heterogeneous patchy opacity in the left lung zone. This could represent pneumonia. Recomm end clinical correlation and follow-up to complete resolution after proper treatment in 4 weeks. Unch anged lungs, cardiomediastinal silhouette and bony thoracic cage. IMPRESSION: As above.
[2021-09-28 20:56] LABS: Glucose,Whole Blood 409 mg/dL (70-110)
[2021-09-28] MEDS: ATORVASTATIN 80 MG TAB PO SCH (21:30)
[2021-09-28] MEDS: INSULIN DETEMIR (LEVEMIR) 100 UNIT/ML SYR SQ SCH (21:30)
--- NOTE | 2021-09-28 22:01 | PN ---
PROGRESS NOTE CHIEF COMPLAINT: Uncontrolled diabetes. HISTORY OF PRESENT ILLNESS: This lady has run into some problems. She has been running temperatures and blood sugars have been climbing as well as white count. She is not complaining of any significant pain in the chest, abdominal pain, shortness of breath, etc. She does have cellulitic area in the outside of the left upper arm where she had an IV when she was in the emergency room. The x-ray would suggest that she is probably developing pneumonitis. REVIEW OF SYSTEMS: She has some chills, but she has had no chest pain, shortness of breath, abdominal pain, nausea, vomiting, urinary complaints, etc. Past medical history, family history, personal and social histories are all otherwise unremarkable or noncontributory or unchanged. Temperature was a 102.1. Chest demonstrates no significant rales or rhonchi. Cardiac exam is normal. Abdomen is protuberant, soft and nontender. IMPRESSION: 1. Uncontrolled diabetes. 2. Fever, undetermined origin. 3. Possible bronchial pneumonia. 4. History of pancreatitis. PLAN: 1. Cultures have been obtained. 2. IV antibiotics. 3. Consult Infectious Disease. MMODL / IJN: [id number] /
[2021-09-29] MEDS: SODIUM CHLORIDE 0.9% 1,000 ML IV SCH ×3 (05:22→20:17)
[2021-09-29] MEDS: HYDROcodone/APAP 5-325MG 1 EACH TAB PO PRN ×3 (05:52→20:16)
[2021-09-29 07:18] LABS: Glucose,Whole Blood 363 mg/dL (70-110)
[2021-09-29] MEDS: IPRATROPIUM-ALBUTEROL 3 ML NEB INHALATION SCH ×4 (08:06→20:10)
[2021-09-29] MEDS: INSULIN ASPART (NovoLOG) 100 UNIT/ML VIAL SQ SCH ×7 (08:25→22:14)
[2021-09-29] MEDS: metFORMIN 500 MG TAB PO SCH (08:26)
[2021-09-29] MEDS: FENOFIBRATE 160 MG TAB PO SCH (08:26)
[2021-09-29] MEDS: lisinopriL 20 MG TAB PO SCH (08:26)
[2021-09-29] MEDS: VANCOMYCIN 1,750 MG in SODIUM CHLORIDE 0.9% 500 ML 500 ML IVPB SCH (09:52)
[2021-09-29] MEDS: AMPICILLIN-SULBACTAM 1.5 GM in SODIUM CHLORIDE 0.9% 50 ML IVPB SCH ×3 (09:53→23:04)
--- NOTE | 2021-09-29 10:23 | CDI ---
Documentation Clarification Form Date: 09/29/2021 10:05:55 AM From: Cassie Nath CCS, CCDS Admit Date: 09/27/2021 12:00:00 PM Patient Name: Dayna Le Visit Number: [id number] Discharge Date: ATTENTION: The Clinical Documentation Specialists (CDI) and [facility] Coding Staff appreciate your assistance in clarifying documentation. Please respond to the clarification below the line at the bottom and electronically sign. The CDI & [facility] Coding staff will review the response and follow-up if needed. Please note: Queries are made part of the Legal Health Record. If you have any questions, please contact the author of this message via ITS. Dr. Guillermo Cerda: The patient presented to the ED on 09/24 and was admitted with Uncontrolled Diabetes Mellitus, admitted to Observation Status. On 09/27, the patient was admitted to Inpatient status with Uncontrolled Diabetes, Probable developing Bronchial Pneumonia. Infectious Disease was consulted on 09/28. Impression: Sepsis likely IV site infection, COPD Exacerbation and Tracheobronchitis. Additional clarification regarding the etiology/cause of the clinical indicators is requested. History/Risk Factors per the 09/24 & 09/25 H/Ps: IDDM II, Chronic Pancreatitis, Hypertriglyceridemia, Obesity, BMI 44.3. Clinical Indicators: Presented to the ED on 09/24 with Upper Respiratory Infection and Cold Symptoms, nonproductive cough, scratchy throat, nasal drainage and congestion. Admit with Hyperglycemia and Acute Upper Respiratory Infection. 09/24 VS: T 98.5, P 73, R 18 - 22, BP 146/80, PO 96, 94 RA, BMI: 44.3 09/24 LAB: WBC 16.4, Hgb 10.0, Hct 33.8, Pl Ct 700, Neut 13.3; glucose 385, Alk Phos 148 09/24 CXR: Ovoid density in the left midlung differential etiologies which include Pneumonia, Neoplasm or Metastatic Disease not excluded, Cardiomegaly, Osteopenia. 09/27 VS: T 100, P 78, R 20, BP 127/59, PO 88 3Lnc 09/27 LAB: Hematology not done. Glucose 416, 351, 433, 452 09/28 VS: T 100.2, 101.7, P 84, R 18, 20; BP 120/51, PO 100 3lnc 09/28 LAB: WBC 13.7, Hgb 9.2, Hct 32.4, Pl Ct 700, Neut 12.1, Lymph 0.7; Na 135, Glucose 256, AST 37, Alk Phos 166 09/28 CXR: Persistent patchy opacity in left lung, could be pneumonia. Treatment 09/24: Accuchecks, Regular Diabetic diet, IV Insulin 10 units x1, IV na Chl 1,000 mls @ 999 mls/hr q1H, IV Na Chl 1,000 mls @ 130 mls/hr q7H, IV Toradol 15 mg x1, Insulin sq brunilda, IV Zofran 4 mg q8H, INH Ventolin QID/prn, IV Na Chl 1,000 mls @ 130 mls/hr q7H, po Glucophage 500 mg Daily, Levemir 60 units sq daily, Novolog 25 units sq TID. 09/27: IV Ampicillin 50 mls @ 100 mls/hr q8H, Levemir 60 units sq brunilda 09/28: IV Vancomycin 500 mls @ 167 mls/hr q16H In your professional opinion, please clarify if these findings signify one of the following conditions: [ ] Sepsis POA [ ] Please specify the etiology of the Sepsis: [ ] Sepsis, Not POA [ ] Please specify the etiology of the Sepsis: [ ] Sepsis ruled out [ ] Other, please specify: [ ] Unable to determine (Template Last Reviewed: May 2020) MTDD
[2021-09-29 10:44] LABS: Basophils # (A) 0.06 X 10*3/uL (0.00-0.10); Basophils % (A) 0.7 %; Eosinophils % (A) 2.3 %; HGB 8.3 g/dL (12.0-15.0); Immature Grans, Automated 2.2 %; Lymphocytes # (A) 1.63 X 10*3/uL (0.90-5.00); Lymphocytes % (A) 18.5 %; MCH 21.1 pg (27.0-32.0); MCHC 27.7 g/dL (32.0-37.0); MCV 76.3 fL (80.0-97.0); Mean Platelet Volume 9.5 fL (9.5-12.2); Monocytes # (A) 0.73 X 10*3/uL (0.20-1.00); Monocytes % (A) 8.3 %; NRBC Per 100 WBC 0.3 /100 WBCS (0.0-0.0); Neutrophils # (A) 5.98 X 10*3/uL (1.80-7.70); Platelet Count 677 X 10*3/uL (140-440); RBC 3.93 X 10*6/uL (4.10-5.20); RDW 18.9 % (11.5-14.5); WBC 8.79 X 10*3/uL (4.50-10.00)
[2021-09-29 10:53] LABS: ALT 16 U/L (8-44); AST 40 U/L (13-35); African American GFR (CKD) 100.3 (60.0-200.0); Albumin 3.1 g/dL (3.8-4.9); Albumin/Globulin Ratio 1.11 (1.60-3.17); Alkaline Phosphatase 132 U/L (41-126); BUN/Creat Ratio 16.63 Ratio (12.00-20.00); Blood Urea Nitrogen 13.3 mg/dL (9.0-27.0); Calcium 8.7 mg/dL (8.7-10.3); Chloride 101 mmol/L (96-109); Globulin 2.8 g/dL (1.6-3.3); Glucose 339 mg/dL (70-110); Non-African American GFR(CKD) 86.6 (60.0-200.0); Potassium 5.1 mmol/L (3.5-5.5); Sodium 138 mmol/L (135-145); Total Bilirubin <0.15 mg/dL (0.30-1.20); Total Protein 5.9 g/dL (6.2-8.2)
[2021-09-29 11:51] LABS: Glucose,Whole Blood 420 mg/dL (70-110)
[2021-09-29] MEDS: ACETAMINOPHEN TAB 325 MG TAB PO PRN (13:25)
[2021-09-29 16:59] LABS: Glucose,Whole Blood 422 mg/dL (70-110)
--- NOTE | 2021-09-29 18:26 | PN ---
PROGRESS NOTE CHIEF COMPLAINT: Pneumonitis, uncontrolled diabetes. HISTORY OF PRESENT ILLNESS: This lady is doing fairly well, but she is still spiking temperatures. Her blood sugars continue to rise. She does have a productive cough, but she has had no chest pain, abdominal pain, nausea, etc. PHYSICAL EXAMINATION: Chest demonstrates bilateral rhonchi and tachycardia. Abdomen is soft and protuberant. There are no masses. Bowel sounds present. IMPRESSION: 1. Bronchopneumonia. 2. Uncontrolled diabetes. 3. Obesity. 4. History of pancreatitis. 5. Hypertriglyceridemia. PLAN: Increase insulin in hopes of bringing her blood sugars under better control. In the meantime, continue antibiotics and updrafts. MMODL / IJN: [id number] /
[2021-09-29] MEDS: ATORVASTATIN 80 MG TAB PO SCH (20:17)
[2021-09-29] MEDS ORDERED: INSULIN DETEMIR (LEVEMIR) 100 UNIT/ML SYR SQ SCH (21:00)
[2021-09-29 21:48] LABS: Glucose,Whole Blood 490 mg/dL (70-110)
[2021-09-30] MEDS: VANCOMYCIN 1,750 MG in SODIUM CHLORIDE 0.9% 500 ML 500 ML IVPB SCH ×2 (00:16→16:26)
[2021-09-30] MEDS: HYDROcodone/APAP 5-325MG 1 EACH TAB PO PRN ×4 (03:01→20:33)
[2021-09-30] MEDS: SODIUM CHLORIDE 0.9% 1,000 ML IV SCH ×3 (03:02→18:01)
[2021-09-30 07:17] LABS: African American GFR (CKD) >90 (>60 ml/min/1.73 sqM); Non-African American GFR(CKD) 90 (>60 ml/min/1.73 sqM)
[2021-09-30 07:31] LABS: Glucose,Whole Blood 224 mg/dL (70-110)
[2021-09-30] MEDS: lisinopriL 20 MG TAB PO SCH (08:05)
[2021-09-30] MEDS: AMPICILLIN-SULBACTAM 1.5 GM in SODIUM CHLORIDE 0.9% 50 ML IVPB SCH ×2 (08:05→15:47)
[2021-09-30] MEDS: FENOFIBRATE 160 MG TAB PO SCH (08:05)
[2021-09-30] MEDS: metFORMIN 500 MG TAB PO SCH (08:05)
[2021-09-30] MEDS: INSULIN ASPART (NovoLOG) 100 UNIT/ML VIAL SQ SCH ×7 (08:06→20:32)
[2021-09-30] MEDS: IPRATROPIUM-ALBUTEROL 3 ML NEB INHALATION SCH ×4 (09:00→20:07)
[2021-09-30 12:29] LABS: Glucose,Whole Blood 266 mg/dL (70-110)
--- NOTE | 2021-09-30 13:58 | MISC ---
MISCELLANOUS REPORT QUERY: Sepsis, not present on admission. MMODL / IJN: [id number] /
--- NOTE | 2021-09-30 14:36 | XR ---
EXAMINATION TYPE: XR chest 2V DATE OF EXAM: 09/30/2021 COMPARISON: NONE HISTORY: Left lower lobe pneumonia TECHNIQUE: 2 views FINDINGS: There is some infiltrate in the left mid and lower lung field. Right lung is clear for hear t size is normal. Bony thorax is intact. IMPRESSION: There is left-sided pneumonia mainly in the lingula left upper lobe which is slightly imp roved compared to recent exam.
--- NOTE | 2021-09-30 15:11 | PN ---
PROGRESS NOTE DATE OF SERVICE: 09/30/2021 CHIEF COMPLAINT: Pneumonitis. HISTORY OF PRESENT ILLNESS: This lady is slowly improving. Her blood sugars are still high, but they have come down into the 200s. She is feeling better. Chest still demonstrates left lower lobe infiltrate. PHYSICAL EXAMINATION: Her chest is improving and there are few rales and rhonchi. Cardiac exam is normal. Abdomen is soft, nontender. IMPRESSION: 1. Left lower lobe pneumonitis. 2. Uncontrolled diabetes. 3. History of pancreatitis. 4. Hypertriglyceridemia. PLAN: 1. Raise Lantus 10 more units. 2. Continue with current program. 3. Consult was placed with Dr. Mcfarland several days ago and Infectious Disease has not seen the patient. MMODL / IJN: [id number] /
[2021-09-30 17:05] LABS: Glucose,Whole Blood 257 mg/dL (70-110)
[2021-09-30 18:39] LABS: ALT 15 U/L (4-34); Albumin 3.1 g/dL (3.5-5.0); Anion Gap 11 mmol/L; Blood Urea Nitrogen 14 mg/dL (7-17); Carbon Dioxide 20 mmol/L (22-30); Chloride 106 mmol/L (98-107); Glucose 221 mg/dL (74-99); Sodium 137 mmol/L (137-145); Total Bilirubin 0.2 mg/dL (0.2-1.3); Total Protein 6.1 g/dL (6.3-8.2)
[2021-09-30 18:40] LABS: AST 44 U/L (14-36); Alkaline Phosphatase 114 U/L (38-126); Potassium 5.1 mmol/L (3.5-5.1)
[2021-09-30 19:36] LABS: Anisocytosis Slight; Basophils # (A) 0.1 k/uL (0-0.2); Basophils % (A) 1 %; Eosinophils # (A) 0.3 k/uL (0-0.7); Eosinophils % (A) 3 %; HCT 30.4 % (34.0-46.0); HGB 8.6 gm/dL (11.4-16.0); Hypochromasia Marked; Lymphocytes # (A) 2.3 k/uL (1.0-4.8); Lymphocytes % (A) 21 %; MCHC 28.2 g/dL (31.0-37.0); MCV 78.1 fL (80.0-100.0); Mean Platelet Volume 7.6; Microcytosis Slight; Monocytes # (A) 0.4 k/uL (0-1.0); Monocytes % (A) 3 %; Neutrophils # (A) 7.4 k/uL (1.3-7.7); Neutrophils % (A) 69 %; Platelet Count 761 k/uL (150-450); RBC 3.89 m/uL (3.80-5.40); RDW 17.7 % (11.5-15.5); WBC 10.7 k/uL (3.8-10.6)
[2021-09-30 20:19] LABS: Glucose,Whole Blood 387 mg/dL (70-110)
[2021-09-30] MEDS: ATORVASTATIN 80 MG TAB PO SCH (20:33)
[2021-09-30] MEDS ORDERED: INSULIN DETEMIR (LEVEMIR) 100 UNIT/ML SYR SQ SCH (21:00)
[2021-10-01] MEDS: AMPICILLIN-SULBACTAM 1.5 GM in SODIUM CHLORIDE 0.9% 50 ML IVPB SCH (00:16)
--- NOTE | 2021-10-01 00:46 | P.PN ---
Subjective Progress Note Date: 09/29/21 Principal diagnosis: Fever and left upper extremity IV site cellulitis Patient is a 51-year-old female presented to hospital with shortness of breath and productive cough and this patient subsequently developing fever with cellulitis to the left upper extremity IV site which was discontinued. On today's evaluation that is 09/29/2021, the patient fever pattern has impr sebas, the patient left upper extremity swelling and redness to his, denies having chest pain did have a cough nonproductive of any sputum, no abdominal pain and no diarrhea Objective - Vital Signs Vital signs: Vital Signs Temp 99 F 09/29/21 07:27 Pulse 80 09/29/21 08:19 Resp 18 09/29/21 07:27 BP 125/60 09/29/21 07:27 Pulse Ox 98 09/29/21 08:06 FiO2 Intake & Output 09/28/21 09/29/21 09/29/21 18:59 06:59 18:59 Intake Total 838 118 Balance 838 118 Intake: Oral 838 118 Other: Voiding Method Toilet # Voids 4 1 # Bowel Movements 1 - Exam GENERAL DESCRIPTION: A middle-aged female lying in bed in no distress RESPIRATORY SYSTEM: Unlabored breathing , decreased breath sounds at bases HEART: S1 S2 regular rate and rhythm , ABDOMEN: Soft , no tenderness EXTREMITIES: Left upper extremity swelling and induration has decreased - Labs CBC & Chem 7: 09/30/21 19:08 09/30/21 06:41 Labs: Abnormal Lab Results - Last 24 Hours (Table) 09/28/21 09/28/21 09/28/21 Range/Units 11:57 17:01 20:54 RBC (4.10-5.20) X 10*6/uL Hgb (12.0-15.0) g/dL Hct (37.2-46.3) % MCV (80.0-97.0) fL MCH (27.0-32.0) pg MCHC (32.0-37.0) g/dL RDW (11.5-14.5) % Plt Count (140-440) X 10*3/uL Absolute Nucleated RBC (0.00-0.00) X 10*3/uL Immature Gran # (0.00-0.04) X 10*3/uL NRBC/100 WBC Diff (0.0-0.0) /100 WBCS D-Dimer (<0.60) mg/L FEU Glucose (70-110) mg/dL POC Glucose (mg/dL) 225 H 362 H 409 H (70-110) mg/dL Total Bilirubin (0.30-1.20) mg/dL AST (13-35) U/L Alkaline Phosphatase (41-126) U/L C-Reactive Protein (0.00-0.80) mg/dL Total Protein (6.2-8.2) g/dL Albumin (3.8-4.9) g/dL Albumin/Globulin Ratio (1.60-3.17) g/dL Procalcitonin (0.02-0.09) ng/mL 09/29/21 09/29/21 09/29/21 Range/Units 07:16 07:22 07:22 RBC 3.93 L (4.10-5.20) X 10*6/uL Hgb 8.3 L (12.0-15.0) g/dL Hct 30.0 L (37.2-46.3) % MCV 76.3 L (80.0-97.0) fL MCH 21.1 L (27.0-32.0) pg MCHC 27.7 L (32.0-37.0) g/dL RDW 18.9 H (11.5-14.5) % Plt Count 677 H (140-440) X 10*3/uL Absolute Nucleated RBC 0.03 H (0.00-0.00) X 10*3/uL Immature Gran # 0.19 H (0.00-0.04) X 10*3/uL NRBC/100 WBC Diff 0.3 H (0.0-0.0) /100 WBCS D-Dimer (<0.60) mg/L FEU Glucose (70-110) mg/dL POC Glucose (mg/dL) 363 H (70-110) mg/dL Total Bilirubin (0.30-1.20) mg/dL AST (13-35) U/L Alkaline Phosphatase (41-126) U/L C-Reactive Protein (0.00-0.80) mg/dL Total Protein (6.2-8.2) g/dL Albumin (3.8-4.9) g/dL Albumin/Globulin Ratio (1.60-3.17) g/dL Procalcitonin 0.61 H (0.02-0.09) ng/mL 09/29/21 09/29/21 09/29/21 Range/Units 07:22 07:22 11:50 RBC (4.10-5.20) X 10*6/uL Hgb (12.0-15.0) g/dL Hct (37.2-46.3) % MCV (80.0-97.0) fL MCH (27.0-32.0) pg MCHC (32.0-37.0) g/dL RDW (11.5-14.5) % Plt Count (140-440) X 10*3/uL Absolute Nucleated RBC (0.00-0.00) X 10*3/uL Immature Gran # (0.00-0.04) X 10*3/uL NRBC/100 WBC Diff (0.0-0.0) /100 WBCS D-Dimer 1.61 H (<0.60) mg/L FEU Glucose 339 H (70-110) mg/dL POC Glucose (mg/dL) 420 H (70-110) mg/dL Total Bilirubin <0.15 L (0.30-1.20) mg/dL AST 40 H (13-35) U/L Alkaline Phosphatase 132 H (41-126) U/L C-Reactive Protein 13.20 H (0.00-0.80) mg/dL Total Protein 5.9 L (6.2-8.2) g/dL Albumin 3.1 L (3.8-4.9) g/dL Albumin/Globulin Ratio 1.11 L (1.60-3.17) g/dL Procalcitonin (0.02-0.09) ng/mL Microbiology - Last 24 Hours (Table) 09/28/21 07:19 Blood Culture - Preliminary Blood No Growth after 24 hours 09/28/21 07:40 Blood Culture - Preliminary Blood No Growth after 24 hours 09/26/21 15:12 Blood Culture - Preliminary Blood No Growth after 48 hours Assessment and Plan (1) Sepsis Current Visit: No Status: Acute Code(s): A41.9 - SEPSIS, UNSPECIFIED ORGANISM SNOMED Code(s): 10746645 Plan: 1patient with a congested cough did have a elevated pro calcitonin concerning for pneumonia continue with the Unasyn while waiting for the sputum culture to be finalize 2-patient with a fever and elevated white count, clinically suspicious for left upper extremity IV site cellulitis, patient blood cultures are currently pending and the patient continue with vancomycin while waiting for the culture finalized Time with Patient: Less than 30
--- NOTE | 2021-10-01 00:48 | P.PN ---
Subjective Progress Note Date: 09/30/21 Principal diagnosis: Fever and left upper extremity IV site cellulitis Patient is a 51-year-old female presented to hospital with shortness of breath and productive cough and this patient subsequently developing fever with cellulitis to the left upper extremity IV site which was discontinued. On today's evaluation that is 09/30/2021, the patient is afebrile today, the patient left upper extremity swelling and redness has almost resolved, the patient denies having chest pain did have a cough nonproductive of any sputum, no abdominal pain and no diarrhea Objective - Vital Signs Vital signs: Vital Signs Temp 99.0 F 09/30/21 07:54 Pulse 62 09/30/21 09:16 Resp 20 09/30/21 07:54 BP 135/61 09/30/21 07:54 Pulse Ox 92 L 09/30/21 09:02 FiO2 Intake & Output 09/29/21 09/30/21 09/30/21 18:59 06:59 18:59 Intake Total 118 Balance 118 Intake: Oral 118 Other: Voiding Method Toilet # Voids 1 2 - Exam GENERAL DESCRIPTION: A middle-aged female lying in bed in no distress RESPIRATORY SYSTEM: Unlabored breathing , decreased breath sounds at bases HEART: S1 S2 regular rate and rhythm , ABDOMEN: Soft , no tenderness EXTREMITIES: Left upper extremity swelling and redness has almost resolved - Labs CBC & Chem 7: 09/30/21 19:08 09/30/21 06:41 Labs: Abnormal Lab Results - Last 24 Hours (Table) 09/29/21 09/29/21 09/29/21 Range/Units 11:50 16:58 21:47 POC Glucose (mg/dL) 420 H 422 H 490 H (70-110) mg/dL 09/30/21 Range/Units 07:29 POC Glucose (mg/dL) 224 H (70-110) mg/dL Microbiology - Last 24 Hours (Table) 09/28/21 07:19 Blood Culture - Preliminary Blood No Growth after 48 hours 09/28/21 07:40 Blood Culture - Preliminary Blood No Growth after 48 hours 09/29/21 20:15 Gram Stain - Preliminary Sputum Sputum Culture - Preliminary 09/26/21 15:12 Blood Culture - Preliminary Blood No Growth after 72 hours Assessment and Plan (1) Sepsis Current Visit: No Status: Acute Code(s): A41.9 - SEPSIS, UNSPECIFIED ORGANISM SNOMED Code(s): 85025502 Plan: 1patient with a congested cough did have a elevated pro calcitonin concerning for pneumonia currently being treated her with Unasyn while waiting for the sputum culture to be finalize 2-patient with left upper extremity IV site cellulitis, patient blood cultures are currently pending and the patient continue with vancomycin and monitor clinical course closely Time with Patient: Less than 30
[2021-10-01] MEDS: HYDROcodone/APAP 5-325MG 1 EACH TAB PO PRN ×3 (02:30→14:29)
[2021-10-01] MEDS: SODIUM CHLORIDE 0.9% 1,000 ML IV SCH ×3 (02:31→17:39)
[2021-10-01] MEDS ORDERED: VANCOMYCIN TROUGH DUE 1 EACH MISC MISCELLANE ONE (07:00)
[2021-10-01 07:20] LABS: Glucose,Whole Blood 289 mg/dL (70-110)
[2021-10-01 07:36] LABS: African American GFR (CKD) >90 (>60 ml/min/1.73 sqM); Non-African American GFR(CKD) >90 (>60 ml/min/1.73 sqM)
[2021-10-01] MEDS: metFORMIN 500 MG TAB PO SCH (08:03)
[2021-10-01] MEDS: FENOFIBRATE 160 MG TAB PO SCH (08:03)
[2021-10-01] MEDS: INSULIN ASPART (NovoLOG) 100 UNIT/ML VIAL SQ SCH ×7 (08:03→21:33)
[2021-10-01] MEDS: lisinopriL 20 MG TAB PO SCH (08:03)
[2021-10-01] MEDS: IPRATROPIUM-ALBUTEROL 3 ML NEB INHALATION SCH ×4 (08:25→20:37)
[2021-10-01] MEDS: VANCOMYCIN 1,750 MG in SODIUM CHLORIDE 0.9% 500 ML 500 ML IVPB SCH (08:42)
[2021-10-01 12:37] LABS: Glucose,Whole Blood 345 mg/dL (70-110)
[2021-10-01 17:21] LABS: Glucose,Whole Blood 314 mg/dL (70-110)
--- NOTE | 2021-10-01 18:01 | PN ---
PROGRESS NOTE DATE OF SERVICE: 10/01/2021 CHIEF COMPLAINT: 1. Pneumonitis and sepsis. 2. Diabetes. HISTORY OF PRESENT ILLNESS: This lady is feeling better. She is coughing less and she is less short of breath. Chest x-ray is remaining about the same. Blood sugars continue to remain high. If they would drop, her pneumonitis might respond more quickly. The abscess in the left arm has resolved. PHYSICAL EXAMINATION: Chest is clear and cardiac exam is normal. The abdomen is soft and nontender. Left arm is no longer infected with the cellulitis. IMPRESSION: 1. Pneumonitis. 2. Cellulitis of left arm. 3. Uncontrolled diabetes. PLAN: Raise Levemir again from 90 to 100 units. MMODL / IJN: [id number] /
[2021-10-01] MEDS: ATORVASTATIN 80 MG TAB PO SCH (20:23)
[2021-10-01 20:46] LABS: Glucose,Whole Blood 276 mg/dL (70-110)
[2021-10-01] MEDS ORDERED: INSULIN DETEMIR (LEVEMIR) 100 UNIT/ML SYR SQ SCH (21:00)
[2021-10-01] MEDS: ACETAMINOPHEN TAB 325 MG TAB PO PRN (21:32)
[2021-10-02] MEDS: VANCOMYCIN 1,750 MG in SODIUM CHLORIDE 0.9% 500 ML 500 ML IVPB SCH ×2 (00:17→16:18)
[2021-10-02] MEDS: HYDROcodone/APAP 5-325MG 1 EACH TAB PO PRN ×4 (02:55→22:14)
[2021-10-02] MEDS: SODIUM CHLORIDE 0.9% 1,000 ML IV SCH ×3 (04:05→21:01)
[2021-10-02 06:55] LABS: African American GFR (CKD) >90 (>60 ml/min/1.73 sqM); Non-African American GFR(CKD) >90 (>60 ml/min/1.73 sqM)
[2021-10-02 07:18] LABS: Glucose,Whole Blood 219 mg/dL (70-110)
[2021-10-02] MEDS: IPRATROPIUM-ALBUTEROL 3 ML NEB INHALATION SCH ×4 (07:50→20:59)
[2021-10-02] MEDS: INSULIN ASPART (NovoLOG) 100 UNIT/ML VIAL SQ SCH ×7 (08:04→21:07)
[2021-10-02] MEDS: FENOFIBRATE 160 MG TAB PO SCH (08:04)
[2021-10-02] MEDS: metFORMIN 500 MG TAB PO SCH (08:04)
[2021-10-02] MEDS: lisinopriL 20 MG TAB PO SCH (08:04)
--- NOTE | 2021-10-02 12:04 | P.PN ---
Subjective Progress Note Date: 10/01/21 Principal diagnosis: Fever and left upper extremity IV site cellulitis Patient is a 51-year-old female presented to hospital with shortness of breath and productive cough and this patient subsequently developing fever with cellulitis to the left upper extremity IV site which was discontinued. On today's evaluation that is 10/01/2021, the patient continues to be afebrile, the patient left upper extremity swelling and redness resolved still complaining of some discomfort at that location, the patient denies having chest pain did have a cough but not bringing up any sputum, no abdominal pain and no diarrhea Objective - Vital Signs Vital signs: Vital Signs Temp 99.6 F 10/01/21 14:00 Pulse 69 10/01/21 16:06 Resp 16 10/01/21 16:06 BP 123/66 10/01/21 14:00 Pulse Ox 94 L 10/01/21 15:54 FiO2 21 09/30/21 20:07 Intake & Output 09/30/21 10/01/21 10/01/21 18:59 06:59 18:59 Intake Total 473 295 Output Total 0 Balance 473 295 Intake: Oral 473 295 Output: Emesis 0 Other: Voiding Method Toilet # Voids 3 - Exam GENERAL DESCRIPTION: A middle-aged female lying in bed in no distress RESPIRATORY SYSTEM: Unlabored breathing , decreased breath sounds at bases HEART: S1 S2 regular rate and rhythm , ABDOMEN: Soft , no tenderness EXTREMITIES: Left upper extremity swelling and redness has almost resolved - Labs CBC & Chem 7: 09/30/21 19:08 10/02/21 06:06 Labs: Abnormal Lab Results - Last 24 Hours (Table) 09/30/21 09/30/21 09/30/21 Range/Units 06:41 17:04 19:08 WBC 10.7 H (3.8-10.6) k/uL Hgb 8.6 L (11.4-16.0) gm/dL Hct 30.4 L (34.0-46.0) % MCV 78.1 L (80.0-100.0) fL MCH 22.0 L (25.0-35.0) pg MCHC 28.2 L (31.0-37.0) g/dL RDW 17.7 H (11.5-15.5) % Plt Count 761 H (150-450) k/uL Carbon Dioxide 20 L (22-30) mmol/L Glucose 221 H (74-99) mg/dL POC Glucose (mg/dL) 257 H (70-110) mg/dL AST 44 H (14-36) U/L Total Protein 6.1 L (6.3-8.2) g/dL Albumin 3.1 L (3.5-5.0) g/dL 09/30/21 10/01/21 10/01/21 Range/Units 20:17 07:19 12:36 WBC (3.8-10.6) k/uL Hgb (11.4-16.0) gm/dL Hct (34.0-46.0) % MCV (80.0-100.0) fL MCH (25.0-35.0) pg MCHC (31.0-37.0) g/dL RDW (11.5-15.5) % Plt Count (150-450) k/uL Carbon Dioxide (22-30) mmol/L Glucose (74-99) mg/dL POC Glucose (mg/dL) 387 H 289 H 345 H (70-110) mg/dL AST (14-36) U/L Total Protein (6.3-8.2) g/dL Albumin (3.5-5.0) g/dL Microbiology - Last 24 Hours (Table) 09/29/21 20:15 Gram Stain - Final Sputum Sputum Culture - Final Ca albicans 09/28/21 07:19 Blood Culture - Preliminary Blood No Growth after 72 hours 09/28/21 07:40 Blood Culture - Preliminary Blood No Growth after 72 hours 09/26/21 15:12 Blood Culture - Preliminary Blood No Growth after 96 hours Assessment and Plan (1) Sepsis Current Visit: No Status: Acute Code(s): A41.9 - SEPSIS, UNSPECIFIED ORGANISM SNOMED Code(s): 45584246 Plan: 1patient with a congested cough did have a elevated pro calcitonin concerning for pneumonia sputum is Ca likely colonizer continue with Rocephin finishing therapy short course of oral Ceftin 2-patient with left upper extremity IV site cellulitis, patient blood cultures are so far negative and the patient continue with vancomycin and plan to switch to short course of oral Doxy on discharge Time with Patient: Less than 30
[2021-10-02 12:06] LABS: Glucose,Whole Blood 251 mg/dL (70-110)
[2021-10-02 16:39] LABS: Glucose,Whole Blood 245 mg/dL (70-110)
--- NOTE | 2021-10-02 18:58 | PN ---
PROGRESS NOTE CHIEF COMPLAINT: Pneumonitis and uncontrolled diabetes. HISTORY OF PRESENT ILLNESS: This lady is feeling better and she is less short of breath. Blood sugars are still high, however. Since she is not compliant at home, she will be discharged once they get down below 150. PHYSICAL EXAM: Physical examination demonstrates occasional rales at the bases. Cardiac exam is normal. Abdomen is protuberant and soft. IMPRESSION: 1. Pneumonitis. 2. Uncontrolled diabetes mellitus. 3. Chronic relapsing pancreatitis. 4. Hyperlipidemia. PLAN: Increase insulin another 10 units and probably home in the next day or two. MMODL / IJN: [id number] /
[2021-10-02] MEDS ORDERED: INSULIN DETEMIR (LEVEMIR) 100 UNIT/ML SYR SQ SCH (21:00)
[2021-10-02] MEDS: ATORVASTATIN 80 MG TAB PO SCH (21:01)
[2021-10-02 21:04] LABS: Glucose,Whole Blood 329 mg/dL (70-110)
[2021-10-03] MEDS: SODIUM CHLORIDE 0.9% 1,000 ML IV SCH ×4 (00:20→21:14)
[2021-10-03] MEDS: HYDROcodone/APAP 5-325MG 1 EACH TAB PO PRN ×3 (04:31→18:29)
[2021-10-03 06:47] LABS: Glucose,Whole Blood 390 mg/dL (70-110)
--- NOTE | 2021-10-03 07:31 | P.PN ---
Subjective Progress Note Date: 10/02/21 Principal diagnosis: Fever and left upper extremity IV site cellulitis Patient is a 51-year-old female presented to hospital with shortness of breath and productive cough and this patient subsequently developing fever with cellulitis to the left upper extremity IV site which was discontinued. On today's evaluation that is 10/02/2021, the patient denies any fever or any chills, the patient left upper extremity swelling and redness and discomfort has resolved, the patient denies having chest pain did have a cough which is decreased intensity and mostly dry in nature, the patient denies abdominal pain and no diarrhea Objective - Vital Signs Vital signs: Vital Signs Temp 98.2 F 10/02/21 07:38 Pulse 68 10/02/21 11:23 Resp 22 10/02/21 08:11 BP 157/84 10/02/21 07:38 Pulse Ox 94 L 10/02/21 07:38 FiO2 21 09/30/21 20:07 Intake & Output 10/01/21 10/02/21 10/02/21 18:59 06:59 18:59 Intake Total 413 500 118 Balance 413 500 118 Intake: Intake, IV Titration 500 Amount Vancomycin 1,750 mg In 500 Sodium Chloride 0.9% 500 ml 500 ml @ 167 mls/hr IVPB Q16H [facility] Rx#: [id number] Oral 413 118 Other: Voiding Method Toilet Toilet # Voids 1 - Exam GENERAL DESCRIPTION: A middle-aged female lying in bed in no distress RESPIRATORY SYSTEM: Unlabored breathing , decreased breath sounds at bases HEART: S1 S2 regular rate and rhythm , ABDOMEN: Soft , no tenderness EXTREMITIES: Left upper extremity swelling and redness has almost resolved - Labs CBC & Chem 7: 09/30/21 19:08 10/02/21 06:06 Labs: Abnormal Lab Results - Last 24 Hours (Table) 10/01/21 10/01/21 10/01/21 Range/Units 12:36 17:20 20:43 POC Glucose (mg/dL) 345 H 314 H 276 H (70-110) mg/dL 10/02/21 Range/Units 07:06 POC Glucose (mg/dL) 219 H (70-110) mg/dL Microbiology - Last 24 Hours (Table) 09/28/21 07:40 Blood Culture - Preliminary Blood No Growth after 96 hours 09/28/21 07:19 Blood Culture - Preliminary Blood No Growth after 96 hours 09/26/21 15:12 Blood Culture - Preliminary Blood No Growth after 120 hours 09/29/21 20:15 Gram Stain - Final Sputum Sputum Culture - Final Ca albicans Assessment and Plan (1) Sepsis Current Visit: No Status: Acute Code(s): A41.9 - SEPSIS, UNSPECIFIED ORGANISM SNOMED Code(s): 26882876 Plan: 1patient with a congested cough did have a elevated pro calcitonin concerning for pneumonia sputum is Ca likely colonizer continue with Rocephin finishing therapy short course of oral Ceftin 2-patient with left upper extremity IV site cellulitis, patient blood cultures are so far negative and the induration and swelling to the left upper extremity is resolved vancomycin can be discontinued on discharge Time with Patient: Less than 30
[2021-10-03] MEDS: INSULIN ASPART (NovoLOG) 100 UNIT/ML VIAL SQ SCH ×7 (08:04→21:11)
[2021-10-03] MEDS: metFORMIN 500 MG TAB PO SCH (08:05)
[2021-10-03] MEDS: FENOFIBRATE 160 MG TAB PO SCH (08:05)
[2021-10-03] MEDS: lisinopriL 20 MG TAB PO SCH (08:05)
[2021-10-03] MEDS: ONDANSETRON 4 MG/2 ML VIAL IVP PRN (09:11)
[2021-10-03] MEDS: IPRATROPIUM-ALBUTEROL 3 ML NEB INHALATION SCH ×4 (09:17→19:42)
[2021-10-03 09:30] LABS: African American GFR (CKD) 100.3 (60.0-200.0); Non-African American GFR(CKD) 86.6 (60.0-200.0)
[2021-10-03] MEDS: VANCOMYCIN 1,750 MG in SODIUM CHLORIDE 0.9% 500 ML 500 ML IVPB SCH (10:01)
[2021-10-03 11:51] LABS: Glucose,Whole Blood 132 mg/dL (70-110)
--- NOTE | 2021-10-03 13:14 | PN ---
PROGRESS NOTE DATE OF SERVICE: 10/03/2021 CHIEF COMPLAINT: Pneumonitis and uncontrolled diabetes. HISTORY OF PRESENT ILLNESS: This lady could be ready to go home, but she keeps running blood sugars up around 350- 400. This was discussed with the nurse to confirm that the nurse was giving her insulin and not the patient. She is eating snacks constantly. Other than that, she could go. PHYSICAL EXAMINATION: Vital signs are normal. Chest is clear. Cardiac exam is normal. Abdomen is soft, nontender. IMPRESSION: 1. Left lower lobe pneumonitis. 2. Uncontrolled insulin-dependent diabetes mellitus. PLAN: Increase Levemir from 110-130 and hold discharge for today pending hopeful discharge tomorrow. MMODL / IJN: [id number] /
[2021-10-03 14:05] VITALS: RESP 18
[2021-10-03 16:42] LABS: Glucose,Whole Blood 222 mg/dL (70-110)
[2021-10-03] MEDS: ATORVASTATIN 80 MG TAB PO SCH (19:43)
[2021-10-03 20:21] LABS: Glucose,Whole Blood 166 mg/dL (70-110)
[2021-10-04] MEDS: HYDROcodone/APAP 5-325MG 1 EACH TAB PO PRN ×3 (01:07→15:45)
[2021-10-04] MEDS ORDERED: INSULIN DETEMIR (LEVEMIR) 100 UNIT/ML SYR SQ SCH (07:00)
[2021-10-04 07:22] VITALS: TEMP 98
[2021-10-04 07:25] LABS: Glucose,Whole Blood 237 mg/dL (70-110)
[2021-10-04] MEDS: IPRATROPIUM-ALBUTEROL 3 ML NEB INHALATION SCH ×3 (07:30→15:14)
[2021-10-04] MEDS: lisinopriL 20 MG TAB PO SCH (08:50)
[2021-10-04] MEDS: INSULIN ASPART (NovoLOG) 100 UNIT/ML VIAL SQ SCH ×6 (08:50→17:47)
[2021-10-04] MEDS: metFORMIN 500 MG TAB PO SCH (08:51)
[2021-10-04] MEDS: FENOFIBRATE 160 MG TAB PO SCH (08:51)
[2021-10-04 11:31] LABS: Glucose,Whole Blood 280 mg/dL (70-110)
--- NOTE | 2021-10-04 12:34 | P.PN ---
Subjective Progress Note Date: 10/03/21 Principal diagnosis: Fever and left upper extremity IV site cellulitis Patient is a 51-year-old female presented to hospital with shortness of breath and productive cough and this patient subsequently developing fever with cellulitis to the left upper extremity IV site which was discontinued. On today's evaluation that is 10/02/2021, 10/03/2021, the patient remains to be afebrile, the patient denies having any chest pain or shortness of breath occasional cough no nausea vomiting abdominal pain left upper extremity swelling redness has resolved Objective - Vital Signs Vital signs: Vital Signs Temp 98.6 F 10/03/21 07:26 Pulse 65 10/03/21 09:25 Resp 16 10/03/21 09:25 BP 139/58 10/03/21 07:26 Pulse Ox 95 10/03/21 07:26 FiO2 21 09/30/21 20:07 Intake & Output 10/02/21 10/03/21 10/03/21 18:59 06:59 18:59 Intake Total 354 500 118 Balance 354 500 118 Intake: Oral 354 500 118 Other: Voiding Method Toilet Toilet Toilet # Voids 2 - Exam GENERAL DESCRIPTION: A middle-aged female lying in bed in no distress RESPIRATORY SYSTEM: Unlabored breathing , decreased breath sounds at bases HEART: S1 S2 regular rate and rhythm , ABDOMEN: Soft , no tenderness EXTREMITIES: Left upper extremity swelling and redness has resolved - Labs CBC & Chem 7: 09/30/21 19:08 10/04/21 06:38 Labs: Abnormal Lab Results - Last 24 Hours (Table) 10/02/21 10/02/21 10/03/21 Range/Units 16:37 21:03 06:45 POC Glucose (mg/dL) 245 H 329 H 390 H (70-110) mg/dL 10/03/21 Range/Units 11:49 POC Glucose (mg/dL) 132 H (70-110) mg/dL Microbiology - Last 24 Hours (Table) 09/28/21 07:40 Blood Culture - Preliminary Blood No Growth after 120 hours 09/28/21 07:19 Blood Culture - Preliminary Blood No Growth after 120 hours 09/26/21 15:12 Blood Culture - Final Blood No Growth after 144 hours Assessment and Plan (1) Sepsis Current Visit: No Status: Acute Code(s): A41.9 - SEPSIS, UNSPECIFIED ORGANISM SNOMED Code(s): 67846109 Plan: 1patient with a congested cough did have a elevated pro calcitonin concerning for pneumonia sputum is Ca likely colonizer , Patient has clinically improved with Rocephin finishing therapy short course of oral Ceftin 2-patient with left upper extremity IV site cellulitis, patient blood cultures are so far negative and the induration and swelling to the left upper extremity is resolved vancomycin Will be discontinued today Time with Patient: Less than 30
--- NOTE | 2021-10-04 12:37 | P.PN ---
Subjective Progress Note Date: 10/04/21 Principal diagnosis: Fever and left upper extremity IV site cellulitis Patient is a 51-year-old female presented to hospital with shortness of breath and productive cough and this patient subsequently developing fever with cellulitis to the left upper extremity IV site which was discontinued. On today's evaluation that is 10/04/2021, the patient is afebrile, the patient Is breathing comfortably on room air denies any chest pain or shortness of breath minimal cough no abdominal pain no pain to the left upper extremity Objective - Vital Signs Vital signs: Vital Signs Temp 98 F 10/04/21 07:20 Pulse 69 10/04/21 11:11 Resp 18 10/04/21 07:20 BP 152/75 10/04/21 07:20 Pulse Ox 93 L 10/04/21 07:20 FiO2 21 09/30/21 20:07 Intake & Output 10/03/21 10/04/21 10/04/21 18:59 06:59 18:59 Intake Total 354 120 Balance 354 120 Intake: Oral 354 120 Other: Voiding Method Toilet Toilet # Voids 2 1 1 - Exam GENERAL DESCRIPTION: A middle-aged female lying in bed in no distress RESPIRATORY SYSTEM: Unlabored breathing , decreased breath sounds at bases HEART: S1 S2 regular rate and rhythm , ABDOMEN: Soft , no tenderness EXTREMITIES: Left upper extremity swelling and redness has resolved - Labs CBC & Chem 7: 09/30/21 19:08 10/04/21 06:38 Labs: Abnormal Lab Results - Last 24 Hours (Table) 10/03/21 10/03/21 10/04/21 Range/Units 16:40 20:19 07:19 POC Glucose (mg/dL) 222 H 166 H 237 H (70-110) mg/dL 10/04/21 Range/Units 11:29 POC Glucose (mg/dL) 280 H (70-110) mg/dL Microbiology - Last 24 Hours (Table) 09/28/21 07:19 Blood Culture - Final Blood No Growth after 144 hours 09/28/21 07:40 Blood Culture - Final Blood No Growth after 144 hours Assessment and Plan (1) Sepsis Current Visit: No Status: Acute Code(s): A41.9 - SEPSIS, UNSPECIFIED ORGANISM SNOMED Code(s): 44297610 Plan: 1patient with left upper extremity IV site cellulitis, patient blood cultures are so far negative and the induration and swelling to the left upper extremity is resolved , No need for any further treatment to the left upper extremity cellulitis 2-patient with a congested cough did have a elevated pro calcitonin concerning for pneumonia sputum is Ca likely colonizer , Patient has clinically improved with Rocephin , advise oral oral Ceftin x 3 days on discharge Time with Patient: Less than 30
[2021-10-04 13:58] VITALS: BP 114/67
[2021-10-04] MEDS ORDERED: VANCOMYCIN TROUGH DUE 1 EACH MISC MISCELLANE ONE (15:00)
[2021-10-04 15:25] VITALS: PULSE 72
[2021-10-04 16:48] LABS: Glucose,Whole Blood 360 mg/dL (70-110)
[2021-10-04] MEDS ORDERED: CEPHALEXIN 500 MG CAP PO SCH (18:00)
--- NOTE | 2021-10-04 21:04 | DS ---
DISCHARGE SUMMARY CHIEF COMPLAINT: Uncontrolled diabetes. HISTORY OF PRESENT ILLNESS AND PHYSICAL EXAMINATION: Details of this lady's history and physical can be found in the initial workup. COURSE IN THE HOSPITAL: After admission she was placed on bedrest, started on intravenous fluids, and efforts were being made to bring her diabetes under control. She then developed some shortness of breath and a productive cough with a fever and she was found to have left lower lobe pneumonitis. She was started on antibiotics and she was slow to respond, probably because her blood sugars remained fairly high. Her insulin was steadily increased and sugars were starting to come under better control and her chest was clear and she was doing well. It was felt that she could go home on October 04. She will be on a significantly increased dose of Lantus and she will be seen in the office in several days. FINAL DIAGNOSIS: 1. Uncontrolled diabetes mellitus. 2. Left lower lobe pneumonitis. 3. Chronic relapsing pancreatitis. 4. Hypertriglyceridemia. OPERATIONS: None. CONSULTATION: Infectious Disease. She is improved. MMODL / IJN: [id number] /
[2021-10-05] MEDS ORDERED: INSULIN DETEMIR (LEVEMIR) 100 UNIT/ML SYR SQ SCH (07:00)
== END 2021-10-04 18:32 | disposition home health service (06) | DRG 637 ==
LOC: EC 17:50 → 6NMEDSUR 09-24 08:08 → OBSVTOIN 09-27 12:00 → 6NMEDSUR 10-02 21:07
PROVIDERS: ADMIT Family Medicine; ATTEND Family Medicine
DX: E11.65 Type 2 diabetes mellitus with hyperglycemia (principal); J18.0 Bronchopneumonia, unspecified organism; A41.9 Sepsis, unspecified organism; J44.0 Chronic obstructive pulmonary disease with (acute) lower respiratory infection; J44.1 Chronic obstructive pulmonary disease with (acute) exacerbation; K86.1 Other chronic pancreatitis; L03.114 Cellulitis of left upper limb; T80.29XA Infection following other infusion, transfusion and therapeutic injection, initial encounter; E66.9 Obesity, unspecified; M54.50 Low back pain, unspecified; E78.1 Pure hyperglyceridemia; R91.1 Solitary pulmonary nodule; E78.5 Hyperlipidemia, unspecified; G89.29 Other chronic pain; M85.80 Other specified disorders of bone density and structure, unspecified site; I10 Essential (primary) hypertension; R09.02 Hypoxemia; Y84.8 Other medical procedures as the cause of abnormal reaction of the patient, or of later complication, without mention of misadventure at the time of the procedure; Z79.4 Long term (current) use of insulin; Z79.84 Long term (current) use of oral hypoglycemic drugs; Z79.899 Other long term (current) drug therapy; Z82.49 Family history of ischemic heart disease and other diseases of the circulatory system; Z87.891 Personal history of nicotine dependence; Z91.19 Patient's noncompliance with other medical treatment and regimen; Z71.3 Dietary counseling and surveillance; Z87.440 Personal history of urinary (tract) infections
CPT/HCPCS: 36415; 71046; 71250; 80053; 80202; 81001; 82009; 82565; 83880; 84145; 85025; 85379; 86140; 87040; 87070; 87205; 87502; 87635; 94640; 94760; 96361; 96374; 99285

== ENCOUNTER 2021-10-11 09:56 | Emergency (ER) | payer MEDICARE ==
[2021-10-11 10:02] VITALS: RESP 18
[2021-10-11] MEDS ORDERED: ASPIRIN 81 MG PO STA (10:11)
[2021-10-11] MEDS ORDERED: KETOROLAC 15 MG/ML 1 ML VIAL IVP STA (10:11)
[2021-10-11 10:28] LABS: Anisocytosis Slight; Basophils # (A) 0.1 k/uL (0-0.2); Basophils % (A) 1 %; Eosinophils # (A) 0.2 k/uL (0-0.7); Eosinophils % (A) 3 %; HCT 33.1 % (34.0-46.0); HGB 9.5 gm/dL (11.4-16.0); Hypochromasia Marked; Lymphocytes # (A) 1.7 k/uL (1.0-4.8); Lymphocytes % (A) 24 %; MCH 21.9 pg (25.0-35.0); MCHC 28.7 g/dL (31.0-37.0); MCV 76.2 fL (80.0-100.0); Mean Platelet Volume 6.5; Microcytosis Moderate; Monocytes # (A) 0.3 k/uL (0-1.0); Monocytes % (A) 5 %; Neutrophils # (A) 4.7 k/uL (1.3-7.7); Neutrophils % (A) 66 %; Platelet Count 827 k/uL (150-450); RBC 4.34 m/uL (3.80-5.40); WBC 7.2 k/uL (3.8-10.6)
[2021-10-11 10:37] LABS: Albumin 3.8 g/dL (3.5-5.0); Calcium 8.6 mg/dL (8.4-10.2); Magnesium 1.5 mg/dL (1.6-2.3); Potassium 4.8 mmol/L (3.5-5.1); Total Bilirubin 0.4 mg/dL (0.2-1.3); Total Protein 6.9 g/dL (6.3-8.2)
--- NOTE | 2021-10-11 10:43 | XR ---
EXAMINATION TYPE: XR chest 2V DATE OF EXAM: 10/11/2021 COMPARISON: Chest x-ray September 30, [address] chest 05/27/2021 HISTORY: Chest pain. TECHNIQUE: Frontal and lateral views of the chest are obtained. FINDINGS: Focal chronic nodular consolidation or nodule lateral left midlung redemonstrated. [place] ing EKG leads are in current study noted. Right lung remains clear. No pleural effusion or pneumothor ax is seen bilaterally. The cardiac silhouette size is stable and mildly enlarged. Lateral left mid r ib fractures are redemonstrated. IMPRESSION: As above. No significant change from most recent x-rays. No new acute pulmonary process.
[2021-10-11 10:46] LABS: INR 0.9 (<1.2); Prothrombin Time 10.2 sec (9.0-12.0)
[2021-10-11 10:56] LABS: Partial Thromboplastin Time 21.4 sec (22.0-30.0)
--- NOTE | 2021-10-11 11:13 | ED ---
Chest Pain HPI - General Chief Complaint: Chest Pain Stated Complaint: chest pain Time Seen by Provider: 10/11/21 09:59 Source: patient, RN notes reviewed Mode of arrival: EMS Limitations: no limitations - History of Present Illness Initial Comments: This a 51-year-old female presents emergency Department chief complaint of chest wall, rib pain. Patient states that she's had pain over the last 3-4 days. She states it hurts when she coughs or takes a deep inspiration does not feel short of breath at this time. She is a former smoker. Denies any diaphoretic episodes no nausea vomiting diarrhea constipation no fevers or chills denies any palpitations no other associated symptoms. - Related Data Home Medications Medication Instructions Recorded Confirmed Atorvastatin [Lipitor] 80 mg PO HS 06/25/19 10/11/21 lisinopriL 40 mg PO DAILY 09/24/20 10/11/21 metFORMIN HCL [Glucophage] 500 mg PO DAILY 09/24/20 10/11/21 traZODone HCL 50 - 100 mg PO HS PRN 01/11/21 10/11/21 Ergocalciferol (Vitamin D2) 1,250 mcg PO TU 03/03/21 10/11/21 [Drisdol (50,000 Iu)] Esomeprazole Magnesium [NexIUM] 20 mg PO DAILY 03/28/21 10/11/21 Albuterol Inhaler [Ventolin Hfa 2 puff INHALATION RT-QID PRN 07/28/21 10/11/21 Inhaler] INSULIN ASPART (NovoLOG) [NovoLOG 18 unit SQ AC-TID 09/24/21 10/11/21 (formulary)] Insulin Detemir (Levemir) [Levemir] 20 unit SQ DAILY@0700 10/11/21 10/11/21 Previous Rx's Medication Instructions Recorded Fenofibrate [Lofibra] 160 mg PO DAILY #30 tab 03/23/19 Allergies Allergy/AdvReac Type Severity Reaction Status Date / Time levofloxacin [From Levaquin] Allergy Rash/Hives Verified 10/11/21 10:56 Review of Systems ROS Statement: Those systems with pertinent positive or pertinent negative responses have been documented in the HPI. ROS Other: All systems not noted in ROS Statement are negative. Past Medical History Past Medical History: Diabetes Mellitus, GERD/Reflux, Hyperlipidemia, Hype rtension, Syncope Additional Past Medical History / Comment(s): Pt recently admitted to [facility] on 07/21/21 with uncontrolled IDDM and hyperkalemia. Other hx: Recurrent pancre atitis, hypertriglyceridemia, elevated lipase, IDDM type II, UTI, chronic low back pain, bulging discs, dental abscesses in past. History of Any Multi-Drug Resistant Organisms: None Reported Past Surgical History: Tubal Ligation Additional Past Surgical History / Comment(s): Age 7 had VSD repair Past Anesthesia/Blood Transfusion Reactions: No Reported Reaction Past Psychological History: No Psychological Hx Reported Smoking Status: Former smoker Past Alcohol Use History: None Reported Past Drug Use History: None Reported - Past Family History Mother Family Medical History: No Reported History Additional Family Medical History / Comment(s): Mother was healthy. She is , pt cannot recall cause of . Father Family Medical History: Pneumonia Additional Family Medical History / Comment(s): Father at the age of 67yrs from pneumonia General Exam Limitations: no limitations General appearance: alert, in no apparent distress Head exam: Present: atraumatic, normocephalic, normal inspection Eye exam: Present: normal appearance, PERRL, EOMI. Absent: scleral icterus, conjunctival injection, periorbital swelling ENT exam: Present: normal exam, normal oropharynx, mucous membranes moist Neck exam: Present: normal inspection, full ROM. Absent: tenderness, meningismus, lymphadenopathy Respiratory exam: Present: normal lung sounds bilaterally, chest wall tenderness. Absent: respiratory distress, wheezes, rales, rhonchi, stridor Cardiovascular Exam: Present: regular rate, normal rhythm, normal heart sounds. Absent: systolic murmur, diastolic murmur, rubs, gallop, clicks GI/Abdominal exam: Present: soft, normal bowel sounds. Absent: distended, tenderness, guarding, rebound, rigid Course Vital Signs 10/11/21 10/11/21 10/11/21 09:57 11:34 12:05 Temperature 99 F Pulse Rate 71 58 L Respiratory 18 18 18 Rate Blood Pressure 155/58 124/61 O2 Sat by Pulse 95 94 L Oximetry 10/11/21 12:07 Temperature Pulse Rate 65 Respiratory Rate Blood Pressure 139/61 O2 Sat by Pulse 97 Oximetry Chest Pain MDM - MDM X-rays unremarkable, labs reveal mild hyperglycemia which was corrected with insulin. Patient's troponin is negative symptoms have been present for several days patient's symptoms are reproducible chest wall. Patient will be discharged in stable condition return parameters were discussed. Disposition Clinical Impression: Chest wall pain, Hyperglycemia Disposition: HOME SELF-CARE Condition: Stable Instructions (If sedation given, give patient instructions): Chest Wall Pain (ED) Additional Instructions: Please return to the Emergency Department if symptoms worsen or any other concerns. Is patient prescribed a controlled substance at d/c from ED?: No Referrals: Guillermo Cerda MD [Primary Care Provider] - 1-2 days Time of Disposition: 12:47
[2021-10-11] MEDS ORDERED: INSULIN REGULAR 100 UNIT/ML VIAL (IV) IV ONE (12:20)
[2021-10-11 12:55] LABS: Glucose,Whole Blood 285 mg/dL (70-110)
[2021-10-11 13:12] VITALS: BP 138/61; PULSE 60; TEMP 98.9
== END 2021-10-11 13:10 | disposition home or self-care (01) ==
LOC: EC 09:56
DX: R07.89 Other chest pain (principal); E78.5 Hyperlipidemia, unspecified; K21.9 Gastro-esophageal reflux disease without esophagitis; Z79.83 Long term (current) use of bisphosphonates; I10 Essential (primary) hypertension; Z88.1 Allergy status to other antibiotic agents; Z87.891 Personal history of nicotine dependence; R73.9 Hyperglycemia, unspecified
CPT/HCPCS: 36415; 93005; 80053; 83735; 84484; 85025; 85610; 85730; 71046; 96374; 99285; J1885

== ENCOUNTER 2021-10-13 05:09 | Emergency (ER) | payer MEDICARE ==
[2021-10-13] MEDS ORDERED: SODIUM CHLORIDE 0.9% 1,000 ML IV STA (05:17)
--- NOTE | 2021-10-13 05:20 | ED ---
Chest Pain HPI - General Stated Complaint: chest pain Time Seen by Provider: 10/13/21 05:12 Source: RN notes reviewed, old records reviewed Mode of arrival: EMS Limitations: no limitations - History of Present Illness Initial Comments: This is a 51-year-old female who is well-known to this emergency department today. Patient presents today for evaluation of chest pain. Patient usual complaints chest pain. Patient states no shortness of breath no sweating states her blood sugars been running well which is using other issue that she has. Patient hasn't travel history sick contact appears cough or congestion. MD Complaint: chest pain -: hour(s) Onset: during rest, during exertion Pain Location: substernal, left chest Pain Radiation: none Severity: mild Severity scale (1-10): 3 Quality: tightness Consistency: intermittent Improves With: nothing Worsens With: nothing Context: other (Patient concerned about elevated blood sugar) Anginal Symptoms: sense of impending doom Other Symptoms: palpitations Treatments Prior to Arrival: none - Related Data Home Medications Medication Instructions Recorded Confirmed Atorvastatin [Lipitor] 80 mg PO HS 06/25/19 10/11/21 lisinopriL 40 mg PO DAILY 09/24/20 10/11/21 metFORMIN HCL [Glucophage] 500 mg PO DAILY 09/24/20 10/11/21 traZODone HCL 50 - 100 mg PO HS PRN 01/11/21 10/11/21 Ergocalciferol (Vitamin D2) 1,250 mcg PO TU 03/03/21 10/11/21 [Drisdol (50,000 Iu)] Esomeprazole Magnesium [NexIUM] 20 mg PO DAILY 03/28/21 10/11/21 Albuterol Inhaler [Ventolin Hfa 2 puff INHALATION RT-QID PRN 07/28/21 10/11/21 Inhaler] INSULIN ASPART (NovoLOG) [NovoLOG 18 unit SQ AC-TID 09/24/21 10/11/21 (formulary)] Insulin Detemir (Levemir) [Levemir] 20 unit SQ DAILY@0700 10/11/21 10/11/21 Previous Rx's Medication Instructions Recorded Fenofibrate [Lofibra] 160 mg PO DAILY #30 tab 03/23/19 Omeprazole [PriLOSEC] 40 mg PO DAILY #30 cap 10/15/21 Ibuprofen [Motrin] 600 mg PO Q8HR PRN #20 tab 10/17/21 Allergies Allergy/AdvReac Type Severity Reaction Status Date / Time levofloxacin [From Levaquin] Allergy Rash/Hives Verified 10/22/21 01:50 Review of Systems ROS Statement: Those systems with pertinent positive or pertinent negative responses have been documented in the HPI. ROS Other: All systems not noted in ROS Statement are negative. EKG Findings - EKG Comments: EKG Findings:: EKG is sinus rhythm 63 ME 147 QRS 90 QTC 4:30 Past Medical History Past Medical History: Diabetes Mellitus, GERD/Reflux, Hyperlipidemia, Hypertension, Syncope Additional Past Medical History / Comment(s): Pt recently admitted to [facility] on 07/21/21 with uncontrolled IDDM and hyperkalemia. Other hx: Recurrent pancreatitis, hypertriglyceridemia, elevated lipase, IDDM type II, UTI, chronic low back pain, bulging discs, dental abscesses in past. History of Any Multi-Drug Resistant Organisms: None Reported Past Surgical History: Tubal Ligation Additional Past Surgical History / Comment(s): Age 7 had VSD repair Past Anesthesia/Blood Transfusion Reactions: No Reported Reaction Past Psychological History: No Psychological Hx Reported Smoking Status: Former smoker Past Alcohol Use History: None Reported Past Drug Use History: None Reported - Past Family History Mother Family Medical History: No Reported History Additional Family Medical History / Comment(s): Mother was healthy. She is , pt cannot recall cause of . Father Family Medical History: Pneumonia Additional Family Medical History / Comment(s): Father at the age of 67yrs from pneumonia General Exam General appearance: alert, in no apparent distress Head exam: Present: atraumatic, normocephalic, normal inspection Eye exam: Present: normal appearance, PERRL, EOMI. Absent: scleral icterus, conjunctival injection, periorbital swelling ENT exam: Present: normal exam, mucous membranes moist Neck exam: Present: normal inspection. Absent: tenderness, meningismus, lymphadenopathy Respiratory exam: Present: normal lung sounds bilaterally. Absent: respiratory distress, wheezes, rales, rhonchi, stridor Cardiovascular Exam: Present: regular rate, normal rhythm, normal heart sounds. Absent: systolic murmur, diastolic murmur, rubs, gallop, clicks GI/Abdominal exam: Present: soft, normal bowel sounds. Absent: distended, tenderness, guarding, rebound, rigid Extremities exam: Present: normal inspection, full ROM, normal capillary refill. Absent: tenderness, pedal edema, joint swelling, calf tenderness Back exam: Present: normal inspection Neurological exam: Present: alert, oriented X3, CN II-XII intact Psychiatric exam: Present: normal affect, normal mood Skin exam: Present: warm, dry, intact, normal color. Absent: rash Course Vital Signs 10/13/21 10/13/21 10/13/21 05:14 07:18 07:47 Temperature 98.2 F 98.8 F Pulse Rate 65 60 66 Respiratory 16 19 Rate Blood Pressure 152/75 153/60 154/71 O2 Sat by Pulse 96 Oximetry - Reevaluation(s) Reevaluation #1: 10/13/21 Medical record is reviewed Reevaluation #2: 10/13/21 Patient informed results and questions answered Reevaluation #3: 10/13/21 Patient feels better good for discharge home Chest Pain MDM - MDM 51 female to the emergency department, patient is well-known to our emergency department, she presents today for evaluation patient comes in for chest pain nonspecific atypical chest pain. Patient is no acute distress and can be discharged home Disposition Clinical Impression: Chest wall pain Disposition: HOME SELF-CARE Condition: Good Instructions (If sedation given, give patient instructions): Chest Pain (ED) Is patient prescribed a controlled substance at d/c from ED?: No Referrals: Guillermo Cerda MD [Primary Care Provider] - 1-2 days Time of Disposition: 06:40
[2021-10-13 05:42] LABS: Anisocytosis Slight; Basophils # (A) 0.1 k/uL (0-0.2); Basophils % (A) 1 %; Eosinophils # (A) 0.3 k/uL (0-0.7); Eosinophils % (A) 4 %; HCT 30.5 % (34.0-46.0); HGB 8.8 gm/dL (11.4-16.0); Hypochromasia Marked; Lymphocytes # (A) 1.8 k/uL (1.0-4.8); Lymphocytes % (A) 27 %; MCH 21.7 pg (25.0-35.0); MCHC 28.7 g/dL (31.0-37.0); MCV 75.4 fL (80.0-100.0); Mean Platelet Volume 6.9; Microcytosis Moderate; Monocytes # (A) 0.3 k/uL (0-1.0); Monocytes % (A) 5 %; Neutrophils # (A) 4.2 k/uL (1.3-7.7); Neutrophils % (A) 62 %; Platelet Count 600 k/uL (150-450); RBC 4.04 m/uL (3.80-5.40); RDW 18.1 % (11.5-15.5); WBC 6.7 k/uL (3.8-10.6)
[2021-10-13 05:55] LABS: ALT 17 U/L (4-34); AST 27 U/L (14-36); African American GFR (CKD) >90 (>60 ml/min/1.73 sqM); Albumin 3.4 g/dL (3.5-5.0); Alkaline Phosphatase 137 U/L (38-126); Anion Gap 10 mmol/L; Blood Urea Nitrogen 19 mg/dL (7-17); Calcium 8.6 mg/dL (8.4-10.2); Carbon Dioxide 21 mmol/L (22-30); Chloride 102 mmol/L (98-107); Glucose 354 mg/dL (74-99); Lipase 223 U/L (23-300); Magnesium 1.3 mg/dL (1.6-2.3); Non-African American GFR(CKD) >90 (>60 ml/min/1.73 sqM); Sodium 133 mmol/L (137-145); Total Bilirubin 0.3 mg/dL (0.2-1.3); Total Protein 6.3 g/dL (6.3-8.2)
[2021-10-13] MEDS ORDERED: MORPHINE SULFATE 4 MG/ML SYRINGE IVP STA (06:07)
--- NOTE | 2021-10-13 06:36 | XR ---
EXAMINATION TYPE: XR chest 1V portable DATE OF EXAM: 10/13/2021 COMPARISON: Chest x-ray 2 days ago. HISTORY: Chest pain. TECHNIQUE: Single AP portable frontal upright view of the chest is obtained. FINDINGS: Focal chronic nodular consolidation or nodule lateral left midlung redemonstrated. [place] ing EKG leads are again seen. Right lung remains clear. No pleural effusion or pneumothorax is seen b ilaterally. The cardiac silhouette size is stable and mildly enlarged. Lateral left mid rib fractures are less well seen on current study. IMPRESSION: As above. No significant change from most recent x-ray. No new acute pulmonary process.
--- NOTE | 2021-10-13 06:40 | XR ---
EXAMINATION TYPE: XR foot limited RT DATE OF EXAM: 10/13/2021 CLINICAL HISTORY: Pain. TECHNIQUE: Frontal and lateral images of the right foot are obtained. COMPARISON: Right foot x-ray November 17, 2018 FINDINGS: There is no acute fracture/dislocation evident in the right foot. The Nichols's toe is rede monstrated The joint spaces in the right foot remain within normal limits. Tiny inferior calcaneal sp ur redemonstrated. The overlying soft tissue appears unremarkable. IMPRESSION: As above. No significant change from prior.
[2021-10-13] MEDS ORDERED: MAGNESIUM OXIDE 400 MG TAB PO STA (06:47)
[2021-10-13] MEDS ORDERED: INSULIN REGULAR 100 UNIT/ML VIAL (IV) IV ONE (06:48)
[2021-10-13 07:53] VITALS: BP 154/71; PULSE 66; RESP 19; TEMP 98.8
== END 2021-10-13 07:49 | disposition home or self-care (01) ==
LOC: EC 05:09
DX: R07.89 Other chest pain (principal); E78.5 Hyperlipidemia, unspecified; E11.9 Type 2 diabetes mellitus without complications; I10 Essential (primary) hypertension; K21.9 Gastro-esophageal reflux disease without esophagitis; Z79.83 Long term (current) use of bisphosphonates; Z87.891 Personal history of nicotine dependence; Z88.1 Allergy status to other antibiotic agents
CPT/HCPCS: 36415; 93005; 83880; 80053; 83690; 83735; 84484; 85025; 73620; 71045; 99285; 96374; 96361; J2270; 99284

== ENCOUNTER 2021-10-15 04:30 | Emergency (ER) | payer MEDICARE ==
[2021-10-15] MEDS ORDERED: MAG HYDROX/AL HYDROX/SIMETH 30 ML, HYOSCYAMINE ELIXIR 10 ML, LIDOCAINE VISCOUS 2% 10 ML PO STA ×3 (04:43)
[2021-10-15 04:47] VITALS: RESP 16; TEMP 99.2
--- NOTE | 2021-10-15 05:04 | ED ---
Chest Pain HPI - General Chief Complaint: Chest Pain Stated Complaint: Chest Pain Time Seen by Provider: 10/15/21 04:32 Source: patient, RN notes reviewed, old records reviewed Mode of arrival: EMS Limitations: no limitations - History of Present Illness Initial Comments: This is a 51-year-old female to the ER today for evaluation. Patient presents today for evaluation regards to chest pain burning patient feels like she is having bad reflux has a history of bad reflux. Patient is not currently taking anything for reflux MD Complaint: chest pain, other (Burning reflux epigastric pain) -: hour(s) Onset: during rest, after eating Pain Location: substernal Pain Radiation: none Severity: mild Severity scale (1-10): 3 Quality: sharp, other (Burning) Consistency: intermittent Improves With: nothing Worsens With: nothing Anginal Symptoms: other (0) Other Symptoms: burping Treatments Prior to Arrival: none - Related Data Home Medications Medication Instructions Recorded Confirmed Atorvastatin [Lipitor] 80 mg PO HS 06/25/19 10/11/21 lisinopriL 40 mg PO DAILY 09/24/20 10/11/21 metFORMIN HCL [Glucophage] 500 mg PO DAILY 09/24/20 10/11/21 traZODone HCL 50 - 100 mg PO HS PRN 01/11/21 10/11/21 Ergocalciferol (Vitamin D2) 1,250 mcg PO TU 03/03/21 10/11/21 [Drisdol (50,000 Iu)] Esomeprazole Magnesium [NexIUM] 20 mg PO DAILY 03/28/21 10/11/21 Albuterol Inhaler [Ventolin Hfa 2 puff INHALATION RT-QID PRN 07/28/21 10/11/21 Inhaler] INSULIN ASPART (NovoLOG) [NovoLOG 18 unit SQ AC-TID 09/24/21 10/11/21 (formulary)] Insulin Detemir (Levemir) [Levemir] 20 unit SQ DAILY@0700 10/11/21 10/11/21 Previous Rx's Medication Instructions Recorded Fenofibrate [Lofibra] 160 mg PO DAILY #30 tab 03/23/19 Omeprazole [PriLOSEC] 40 mg PO DAILY #30 cap 10/15/21 Ibuprofen [Motrin] 600 mg PO Q8HR PRN #20 tab 10/17/21 Allergies Allergy/AdvReac Type Severity Reaction Status Date / Time levofloxacin [From Levaquin] Allergy Rash/Hives Verified 10/22/21 01:50 Review of Systems ROS Statement: Those systems with pertinent positive or pertinent negative responses have been documented in the HPI. ROS Other: All systems not noted in ROS Statement are negative. EKG Findings - EKG Comments: EKG Findings:: EKG is sinus rhythm 75. 148 QRS 80 QTC 428 Past Medical History Past Medical History: Diabetes Mellitus, GERD/Reflux, Hyperlipidemia, Hypertension, Syncope Additional Past Medical History / Comment(s): Pt recently admitted to [facility] on 07/21/21 with uncontrolled IDDM and hyperkalemia. Other hx: Recurrent pancreatitis, hypertriglyceridemia, elevated lipase, IDDM type II, UTI, chronic low back pain, bulging discs, dental abscesses in past. History of Any Multi-Drug Resistant Organisms: None Reported Past Surgical History: Tubal Ligation Additional Past Surgical History / Comment(s): Age 7 had VSD repair Past Anesthesia/Blood Transfusion Reactions: No Reported Reaction Past Psychological History: No Psychological Hx Reported Smoking Status: Former smoker Past Alcohol Use History: None Reported Past Drug Use History: None Reported - Past Family History Mother Family Medical History: No Reported History Additional Family Medical History / Comment(s): Mother was healthy. She is de ceased, pt cannot recall cause of . Father Family Medical History: Pneumonia Additional Family Medical History / Comment(s): Father at the age of 67yrs from pneumonia General Exam Limitations: no limitations General appearance: alert, in no apparent distress Head exam: Present: atraumatic, normocephalic, normal inspection Eye exam: Present: normal appearance, PERRL, EOMI. Absent: scleral icterus, conjunctival injection, periorbital swelling ENT exam: Present: normal exam, mucous membranes moist Neck exam: Present: normal inspection. Absent: tenderness, meningismus, lymphadenopathy Respiratory exam: Present: normal lung sounds bilaterally. Absent: respiratory distress, wheezes, rales, rhonchi, stridor Cardiovascular Exam: Present: regular rate, normal rhythm, normal heart sounds. Absent: systolic murmur, diastolic murmur, rubs, gallop, clicks GI/Abdominal exam: Present: soft, normal bowel sounds. Absent: distended, tenderness, guarding, rebound, rigid Extremities exam: Present: normal inspection, full ROM, normal capillary refill. Absent: tenderness, pedal edema, joint swelling, calf tenderness Back exam: Present: normal inspection Neurological exam: Present: alert, oriented X3, CN II-XII intact Psychiatric exam: Present: normal affect, normal mood Skin exam: Present: warm, dry, intact, normal color. Absent: rash Course Vital Signs 10/15/21 10/15/21 10/15/21 04:32 04:44 05:15 Temperature 99.2 F Pulse Rate 69 74 Pulse Rate [ 72 Bilateral [employer] ] Respiratory 16 16 Rate Blood Pressure 142/73 167/81 O2 Sat by Pulse 95 98 Oximetry - Reevaluation(s) Reevaluation #1: 10/15/21 Medical record is reviewed Reevaluation #2: 10/15/21 Patient informed of results and questions answered Reevaluation #3: 10/15/21 Patient feels good for discharge home Chest Pain MDM - MDM 51 female well-known to facility patient coming in for chest pain will she describes as reflux riding an irritation patient states currently she feels very well feels good for discharge, patient can be discharged Disposition Clinical Impression: Gastritis, Gastroesophageal reflux disease Disposition: HOME SELF-CARE Condition: Good Instructions (If sedation given, give patient instructions): GERD (Gastroe sophageal Reflux Disease) (ED) Prescriptions: Omeprazole [PriLOSEC] 40 mg PO DAILY #30 cap Is patient prescribed a controlled substance at d/c from ED?: No Referrals: Guillermo Cerda MD [Primary Care Provider] - 1-2 days Time of Disposition: 04:55
[2021-10-15 05:20] VITALS: BP 167/81; PULSE 74
== END 2021-10-15 05:20 | disposition home or self-care (01) ==
LOC: EC 04:30
DX: K29.70 Gastritis, unspecified, without bleeding (principal); K21.9 Gastro-esophageal reflux disease without esophagitis; E11.9 Type 2 diabetes mellitus without complications; I10 Essential (primary) hypertension; E78.5 Hyperlipidemia, unspecified; Z87.891 Personal history of nicotine dependence; Z79.4 Long term (current) use of insulin; Z79.84 Long term (current) use of oral hypoglycemic drugs; Z79.51 Long term (current) use of inhaled steroids; Z79.899 Other long term (current) drug therapy
CPT/HCPCS: 93005; 99285

== ENCOUNTER 2021-10-17 02:27 | Emergency (ER) | payer MEDICARE ==
[2021-10-17 02:34] VITALS: RESP 18; TEMP 98.4
[2021-10-17] MEDS ORDERED: KETOROLAC 15 MG/ML 1 ML VIAL IM STA (06:35)
--- NOTE | 2021-10-17 06:38 | ED ---
General Adult HPI - General Chief complaint: Recheck/Abnormal Lab/Rx Stated complaint: Pain all over Time Seen by Provider: 10/17/21 06:24 Source: patient, EMS, RN notes reviewed Mode of arrival: EMS Limitations: no limitations - History of Present Illness Initial comments: This a 51-year-old female presents emergency Department with chief complaint of pain. Patient states she's has intermittent joint pain pain all over which is not new today. This is been going on for months to years. Patient states that she had no new trauma no fevers chills no chest pain or shortness of breath. Patient states she took Tylenol with minimal relief she states that this comes back after the Tylenol wears off. Denies any GI symptoms patient offers no other complaints. - Related Data Home Medications Medication Instructions Recorded Confirmed Atorvastatin [Lipitor] 80 mg PO HS 06/25/19 10/11/21 lisinopriL 40 mg PO DAILY 09/24/20 10/11/21 metFORMIN HCL [Glucophage] 500 mg PO DAILY 09/24/20 10/11/21 traZODone HCL 50 - 100 mg PO HS PRN 01/11/21 10/11/21 Ergocalciferol (Vitamin D2) 1,250 mcg PO TU 03/03/21 10/11/21 [Drisdol (50,000 Iu)] Esomeprazole Magnesium [NexIUM] 20 mg PO DAILY 03/28/21 10/11/21 Albuterol Inhaler [Ventolin Hfa 2 puff INHALATION RT-QID PRN 07/28/21 10/11/21 Inhaler] INSULIN ASPART (NovoLOG) [NovoLOG 18 unit SQ AC-TID 09/24/21 10/11/21 (formulary)] Insulin Detemir (Levemir) [Levemir] 20 unit SQ DAILY@0700 10/11/21 10/11/21 Previous Rx's Medication Instructions Recorded Fenofibrate [Lofibra] 160 mg PO DAILY #30 tab 03/23/19 Omeprazole [PriLOSEC] 40 mg PO DAILY #30 cap 10/15/21 Ibuprofen [Motrin] 600 mg PO Q8HR PRN #20 tab 10/17/21 Allergies Allergy/AdvReac Type Severity Reaction Status Date / Time levofloxacin [From Levaquin] Allergy Rash/Hives Verified 10/17/21 02:34 Review of Systems ROS Statement: Those systems with pertinent positive or pertinent negative responses have been documented in the HPI. ROS Other: All systems not noted in ROS Statement are negative. Past Medical History Past Medical History: Diabetes Mellitus, GERD/Reflux, Hyperlipidemia, Hypertension, Syncope Additional Past Medical History / Comment(s): Pt recently admitted to [facility] on 07/21/21 with uncontrolled IDDM and hyperkalemia. Other hx: Recurrent pancreatitis, hypertriglyceridemia, elevated lipase, IDDM type II, UTI, chronic low back pain, bulging discs, dental abscesses in past. History of Any Multi-Drug Resistant Organisms: None Reported Past Surgical History: Tubal Ligation Additional Past Surgical History / Comment(s): Age 7 had VSD repair Past Anesthesia/Blood Transfusion Reactions: No Reported Reaction Past Psychological History: No Psychological Hx Reported Smoking Status: Former smoker Past Alcohol Use History: None Reported Past Drug Use History: None Reported - Past Family History Mother Family Medical History: No Reported History Additional Family Medical History / Comment(s): Mother was healthy. She is , pt cannot recall cause of . Father Family Medical History: Pneumonia Additional Family Medical History / Comment(s): Father at the age of 67yrs from pneumonia General Exam Limitations: no limitations General appearance: alert, in no apparent distress Head exam: Present: atraumatic, normocephalic, normal inspection Eye exam: Present: normal appearance, PERRL, EOMI. Absent: scleral icterus, conjunctival injection, periorbital swelling ENT exam: Present: normal exam, normal oropharynx, mucous membranes moist Neck exam: Present: normal inspection, full ROM. Absent: tenderness, meningismus, lymphadenopathy Respiratory exam: Present: normal lung sounds bilaterally. Absent: respiratory distress, wheezes, rales, rhonchi, stridor Cardiovascular Exam: Present: regular rate, normal rhythm, normal heart sounds. Absent: systolic murmur, diastolic murmur, rubs, gallop, clicks Extremities exam: Present: normal inspection, full ROM, normal capillary refill. Absent: tenderness, pedal edema, joint swelling, calf tenderness Course Vital Signs 10/17/21 02:33 Temperature 98.4 F Pulse Rate 56 L Respiratory 18 Rate Blood Pressure 143/75 O2 Sat by Pulse 96 Oximetry Medical Decision Making - Medical Decision Making Patient's pain is chronic in nature there are no acute findings noted no trauma. Patient will be discharged after Toradol advised take anti-inflammatories and return for any worsening change symptoms. Disposition Clinical Impression: Chronic pain Disposition: HOME SELF-CARE Condition: Stable Instructions (If sedation given, give patient instructions): Chronic Pain (ED) Additional Instructions: Please return to the Emergency Department if symptoms worsen or any other concerns. Prescriptions: Ibuprofen [Motrin] 600 mg PO Q8HR PRN #20 tab PRN Reason: Pain Is patient prescribed a controlled substance at d/c from ED?: No Referrals: Guillermo Cerda MD [Primary Care Provider] - 1-2 days Time of Disposition: 06:38
[2021-10-17 06:51] VITALS: BP 138/79; PULSE 60
== END 2021-10-17 06:57 | disposition home or self-care (01) ==
LOC: EC 02:27
DX: G89.29 Other chronic pain (principal); E11.65 Type 2 diabetes mellitus with hyperglycemia; K21.9 Gastro-esophageal reflux disease without esophagitis; E78.5 Hyperlipidemia, unspecified; I10 Essential (primary) hypertension; Z79.4 Long term (current) use of insulin; Z79.899 Other long term (current) drug therapy; Z87.891 Personal history of nicotine dependence; Z88.1 Allergy status to other antibiotic agents
CPT/HCPCS: 99283; 96372; J1885

== ENCOUNTER 2021-10-19 02:26 | Emergency (ER) | payer MEDICARE ==
[2021-10-19 02:33] LABS: Glucose,Whole Blood 484 mg/dL (70-110)
[2021-10-19] MEDS ORDERED: MORPHINE SULFATE 4 MG/ML SYRINGE IV STA (03:34)
[2021-10-19 03:42] LABS: Anisocytosis Slight; Basophils # (A) 0.1 k/uL (0-0.2); Basophils % (A) 1 %; Eosinophils # (A) 0.2 k/uL (0-0.7); Eosinophils % (A) 3 %; HGB 10.3 gm/dL (11.4-16.0); Hypochromasia Marked; Lymphocytes # (A) 2.1 k/uL (1.0-4.8); Lymphocytes % (A) 27 %; MCH 21.7 pg (25.0-35.0); MCHC 28.5 g/dL (31.0-37.0); MCV 76.2 fL (80.0-100.0); Mean Platelet Volume 7.2; Microcytosis Moderate; Monocytes # (A) 0.4 k/uL (0-1.0); Monocytes % (A) 5 %; Neutrophils # (A) 4.8 k/uL (1.3-7.7); Neutrophils % (A) 62 %; Platelet Count 550 k/uL (150-450); RBC 4.73 m/uL (3.80-5.40); RDW 18.2 % (11.5-15.5); WBC 7.7 k/uL (3.8-10.6)
[2021-10-19 04:02] LABS: ALT 19 U/L (4-34); AST 25 U/L (14-36); African American GFR (CKD) >90 (>60 ml/min/1.73 sqM); Albumin 4.1 g/dL (3.5-5.0); Alkaline Phosphatase 144 U/L (38-126); Amylase 39 U/L (30-110); Anion Gap 12 mmol/L; Blood Urea Nitrogen 19 mg/dL (7-17); Calcium 9.4 mg/dL (8.4-10.2); Carbon Dioxide 24 mmol/L (22-30); Chloride 94 mmol/L (98-107); Glucose 486 mg/dL (74-99); Lipase 236 U/L (23-300); Non-African American GFR(CKD) 90 (>60 ml/min/1.73 sqM); Potassium 4.5 mmol/L (3.5-5.1); Sodium 130 mmol/L (137-145); Total Bilirubin 0.3 mg/dL (0.2-1.3)
[2021-10-19 04:31] LABS: Amorphous Sediment,Urine Rare /hpf; Appearance,Urine Clear (Clear); Bilirubin,Urine Negative (Negative); Blood,Urine Negative (Negative); Color,Urine Colorless; Glucose,Urine (UA) 4+ (Negative); Ketones,Urine Negative (Negative); Leukocyte Esterase,Urine Negative (Negative); Nitrite,Urine Negative (Negative); Protein,Urine 1+ (Negative); RBC,Urine 1 /hpf (0-5); Squamous Epithelial Cell,Urine 2 /hpf (0-4); Urobilinogen,Urine <2.0 mg/dL (<2.0); WBC,Urine 3 /hpf (0-5)
[2021-10-19] MEDS ORDERED: INSULIN REGULAR 100 UNIT/ML VIAL (IV) SQ STA (05:47)
[2021-10-19] MEDS ORDERED: SODIUM CHLORIDE 0.9% 1,000 ML IV ONE (05:47)
[2021-10-19 07:06] LABS: Glucose,Whole Blood 382 mg/dL (70-110)
--- NOTE | 2021-10-19 07:15 | ED ---
Abdominal Pain HPI - General Chief Complaint: Abdominal Pain Stated Complaint: abd pain Time Seen by Provider: 10/19/21 03:07 Source: patient, EMS Mode of arrival: ambulatory - History of Present Illness Initial Comments: This patient is a 51-year-old woman who presents with complaint of some intermittent abdominal pain mainly across the upper abdomen that is been going on for approximately 2 days intermittently. She states that it has a burning and aching character. She is otherwise not able to characterize it very well. MD Complaint: abdominal pain -: days(s) Location: LUQ, RUQ, epigastric Radiation: none Migration to: no migration Severity: moderate Quality: cramping, burning Consistency: intermittent Improves With: nothing Worsens With: nothing Associated Symptoms: nausea - Related Data Home Medications Medication Instructions Recorded Confirmed Atorvastatin [Lipitor] 80 mg PO HS 06/25/19 10/11/21 lisinopriL 40 mg PO DAILY 09/24/20 10/11/21 metFORMIN HCL [Glucophage] 500 mg PO DAILY 09/24/20 10/11/21 traZODone HCL 50 - 100 mg PO HS PRN 01/11/21 10/11/21 Ergocalciferol (Vitamin D2) 1,250 mcg PO TU 03/03/21 10/11/21 [Drisdol (50,000 Iu)] Esomeprazole Magnesium [NexIUM] 20 mg PO DAILY 03/28/21 10/11/21 Albuterol Inhaler [Ventolin Hfa 2 puff INHALATION RT-QID PRN 07/28/21 10/11/21 Inhaler] INSULIN ASPART (NovoLOG) [NovoLOG 18 unit SQ AC-TID 09/24/21 10/11/21 (formulary)] Insulin Detemir (Levemir) [Levemir] 20 unit SQ DAILY@0700 10/11/21 10/11/21 Previous Rx's Medication Instructions Recorded Fenofibrate [Lofibra] 160 mg PO DAILY #30 tab 03/23/19 Omeprazole [PriLOSEC] 40 mg PO DAILY #30 cap 10/15/21 Ibuprofen [Motrin] 600 mg PO Q8HR PRN #20 tab 10/17/21 Allergies Allergy/AdvReac Type Severity Reaction Status Date / Time levofloxacin [From Levaquin] Allergy Rash/Hives Verified 10/22/21 01:50 Review of Systems ROS Statement: Those systems with pertinent positive or pertinent negative responses have been documented in the HPI. ROS Other: All systems not noted in ROS Statement are negative. Constitutional: Denies: fever Respiratory: Denies: cough, dyspnea Cardiovascular: Denies: chest pain, palpitations, edema Gastrointestinal: Reports: abdominal pain, nausea. Denies: vomiting, diarrhea, constipation, melena, hematochezia Genitourinary: Denies: dysuria, hematuria Musculoskeletal: Denies: back pain Skin: Denies: rash Neurological: Denies: headache, weakness, numbness Past Medical History Past Medical History: Diabetes Mellitus, GERD/Reflux, Hyperlipidemia, Hypertension, Syncope Additional Past Medical History / Comment(s): Pt recently admitted to [facility] on 07/21/21 with uncontrolled IDDM and hyperkalemia. Other hx: Recurrent pancreatitis, hypertriglyceridemia, elevated lipase, IDDM type II, UTI, chronic low back pain, bulging discs, dental abscesses in past. History of Any Multi-Drug Resistant Organisms: None Reported Past Surgical History: Tubal Ligation Additional Past Surgical History / Comment(s): Age 7 had VSD repair Past Anesthesia/Blood Transfusion Reactions: No Reported Reaction Past Psychological History: No Psychological Hx Reported Smoking Status: Former smoker Past Alcohol Use History: None Reported Past Drug Use History: None Reported - Past Family History Mother Family Medical History: No Reported History Additional Family Medical History / Comment(s): Mother was healthy. She is , pt cannot recall cause of . Father Family Medical History: Pneumonia Additional Family Medical History / Comment(s): Father at the age of 67yrs from pneumonia General Exam General appearance: alert, in no apparent distress Head exam: Present: atraumatic, normocephalic Eye exam: Present: normal appearance. Absent: scleral icterus, conjunctival injection Neck exam: Present: normal inspection Respiratory exam: Present: normal lung sounds bilaterally. Absent: respiratory distress, wheezes, rales, rhonchi, stridor Cardiovascular Exam: Present: regular rate, normal rhythm, normal heart sounds. Absent: systolic murmur, diastolic murmur, rubs, gallop GI/Abdominal exam: Present: soft. Absent: distended, tenderness, guarding, r ebound, rigid, mass, pulsatile mass, hernia Extremities exam: Present: normal inspection, normal capillary refill. Absent: pedal edema, calf tenderness Back exam: Present: normal inspection. Absent: CVA tenderness (R), CVA tenderness (L) Neurological exam: Present: alert Skin exam: Present: warm, dry, intact, normal color. Absent: rash Course Vital Signs 10/19/21 10/19/21 10/19/21 02:36 04:40 05:35 Temperature 98.1 F Pulse Rate 71 77 60 Respiratory 20 19 16 Rate Blood Pressure 151/98 131/78 136/62 O2 Sat by Pulse 96 96 96 Oximetry 10/19/21 08:41 Temperature 97.7 F Pulse Rate 71 Respiratory 18 Rate Blood Pressure 153/89 O2 Sat by Pulse 96 Oximetry Medical Decision Making - Lab Data Result diagrams: 10/19/21 02:49 10/19/21 02:49 Lab Results 10/19/21 10/19/21 10/19/21 Range/Units 02:30 02:49 02:49 WBC 7.7 (3.8-10.6) k/uL RBC 4.73 (3.80-5.40) m/uL Hgb 10.3 L (11.4-16.0) gm/dL Hct 36.0 (34.0-46.0) % MCV 76.2 L (80.0-100.0) fL MCH 21.7 L (25.0-35.0) pg MCHC 28.5 L (31.0-37.0) g/dL RDW 18.2 H (11.5-15.5) % Plt Count 550 H (150-450) k/uL MPV 7.2 Neutrophils % 62 % Lymphocytes % 27 % Monocytes % 5 % Eosinophils % 3 % Basophils % 1 % Neutrophils # 4.8 (1.3-7.7) k/uL Lymphocytes # 2.1 (1.0-4.8) k/uL Monocytes # 0.4 (0-1.0) k/uL Eosinophils # 0.2 (0-0.7) k/uL Basophils # 0.1 (0-0.2) k/uL Hypochromasia Marked Anisocytosis Slight Microcytosis Moderate Sodium (137-145) mmol/L Potassium (3.5-5.1) mmol/L Chloride (98-107) mmol/L Carbon Dioxide (22-30) mmol/L Anion Gap mmol/L BUN (7-17) mg/dL Creatinine (0.52-1.04) mg/dL Est GFR (CKD-EPI)AfAm (>60 ml/min/1.73 sqM) Est GFR (CKD-EPI)NonAf (>60 ml/min/1.73 sqM) Glucose (74-99) mg/dL POC Glucose (mg/dL) 484 H (70-110) mg/dL POC Glu Warp Doffer ID John Thibodeaux Calcium (8.4-10.2) mg/dL Total Bilirubin (0.2-1.3) mg/dL AST (14-36) U/L ALT (4-34) U/L Alkaline Phosphatase (38-126) U/L Total Protein (6.3-8.2) g/dL Albumin (3.5-5.0) g/dL Amylase (30-110) U/L Lipase (23-300) U/L Urine Color Colorless Urine Appearance Clear (Clear) Urine pH 6.0 (5.0-8.0) Ur Specific [place] 1.020 (1.001-1.035) Urine Protein 1+ H (Negative) Urine Glucose (UA) 4+ H (Negative) Urine Ketones Negative (Negative) Urine Blood Negative (Negative) Urine Nitrite Negative (Negative) Urine Bilirubin Negative (Negative) Urine Urobilinogen <2.0 (<2.0) mg/dL Ur Leukocyte Esterase Negative (Negative) Urine RBC 1 (0-5) /hpf Urine WBC 3 (0-5) /hpf Ur Squamous Epith Cells 2 (0-4) /hpf Amorphous Sediment Rare H (None) /hpf 10/19/21 10/19/21 Range/Units 02:49 07:03 WBC (3.8-10.6) k/uL RBC (3.80-5.40) m/uL Hgb (11.4-16.0) gm/dL Hct (34.0-46.0) % MCV (80.0-100.0) fL MCH (25.0-35.0) pg MCHC (31.0-37.0) g/dL RDW (11.5-15.5) % Plt Count (150-450) k/uL MPV Neutrophils % % Lymphocytes % % Monocytes % % Eosinophils % % Basophils % % Neutrophils # (1.3-7.7) k/uL Lymphocytes # (1.0-4.8) k/uL Monocytes # (0-1.0) k/uL Eosinophils # (0-0.7) k/uL Basophils # (0-0.2) k/uL Hypochromasia Anisocytosis Microcytosis Sodium 130 L (137-145) mmol/L Potassium 4.5 (3.5-5.1) mmol/L Chloride 94 L (98-107) mmol/L Carbon Dioxide 24 (22-30) mmol/L Anion Gap 12 mmol/L BUN 19 H (7-17) mg/dL Creatinine 0.78 (0.52-1.04) mg/dL Est GFR (CKD-EPI)AfAm >90 (>60 ml/min/1.73 sqM) Est GFR (CKD-EPI)NonAf 90 (>60 ml/min/1.73 sqM) Glucose 486 H (74-99) mg/dL POC Glucose (mg/dL) 382 H (70-110) mg/dL POC Glu Warp Doffer ID John Thibodeaux Calcium 9.4 (8.4-10.2) mg/dL Total Bilirubin 0.3 (0.2-1.3) mg/dL AST 25 (14-36) U/L ALT 19 (4-34) U/L Alkaline Phosphatase 144 H (38-126) U/L Total Protein 7.0 (6.3-8.2) g/dL Albumin 4.1 (3.5-5.0) g/dL Amylase 39 (30-110) U/L Lipase 236 (23-300) U/L Urine Color Urine Appearance (Clear) Urine pH (5.0-8.0) Ur Specific [place] (1.001-1.035) Urine Protein (Negative) Urine Glucose (UA) (Negative) Urine Ketones (Negative) Urine Blood (Negative) Urine Nitrite (Negative) Urine Bilirubin (Negative) Urine Urobilinogen (<2.0) mg/dL Ur Leukocyte Esterase (Negative) Urine RBC (0-5) /hpf Urine WBC (0-5) /hpf Ur Squamous Epith Cells (0-4) /hpf Amorphous Sediment (None) /hpf Disposition Clinical Impression: Chronic pain, Hyperglycemia Disposition: HOME SELF-CARE Condition: Good Instructions (If sedation given, give patient instructions): Diabetic Hyperglycemia (ED) Is patient prescribed a controlled substance at d/c from ED?: No Referrals: Guillermo Cerda MD [Primary Care Provider] - 1-2 days
[2021-10-19] MEDS ORDERED: ONDANSETRON 4 MG/2 ML VIAL IVP STA (07:32)
[2021-10-19 08:42] VITALS: BP 153/89; PULSE 71; RESP 18; TEMP 97.7
== END 2021-10-19 08:43 | disposition home or self-care (01) ==
LOC: EC 02:26
DX: G89.29 Other chronic pain (principal); E11.65 Type 2 diabetes mellitus with hyperglycemia; R10.11 Right upper quadrant pain; R10.12 Left upper quadrant pain; R10.13 Epigastric pain; K21.9 Gastro-esophageal reflux disease without esophagitis; I10 Essential (primary) hypertension; Z87.891 Personal history of nicotine dependence; Z88.1 Allergy status to other antibiotic agents; Z79.899 Other long term (current) drug therapy; Z79.84 Long term (current) use of oral hypoglycemic drugs; Z79.4 Long term (current) use of insulin
CPT/HCPCS: 36415; 80053; 82150; 83690; 85025; 81001; 99284; 96374; 96375; 96361; J2270; J2405

== ENCOUNTER 2021-10-19 13:50 | Emergency (ER) | payer MEDICARE ==
[2021-10-19] MEDS ORDERED: KETOROLAC 15 MG/ML 1 ML VIAL IM STA (16:26)
--- NOTE | 2021-10-19 16:26 | ED ---
General Adult HPI - General Stated complaint: Chronic pain Time Seen by Provider: 10/19/21 15:39 Source: patient, RN notes reviewed Limitations: no limitations - History of Present Illness Initial comments: Patient is a pleasant 51-year-old female presenting to the emergency department with concerns with chronic pain. Patient states she has pain all over. Patient states this chronic pain, somewhat worse the past couple of days. Patient ate lasagna the other day and feels that may have made her symptoms worsen. Patient is receptive to receiving pain medication. - Related Data Home Medications Medication Instructions Recorded Confirmed Atorvastatin [Lipitor] 80 mg PO HS 06/25/19 10/11/21 lisinopriL 40 mg PO DAILY 09/24/20 10/11/21 metFORMIN HCL [Glucophage] 500 mg PO DAILY 09/24/20 10/11/21 traZODone HCL 50 - 100 mg PO HS PRN 01/11/21 10/11/21 Ergocalciferol (Vitamin D2) 1,250 mcg PO TU 03/03/21 10/11/21 [Drisdol (50,000 Iu)] Esomeprazole Magnesium [NexIUM] 20 mg PO DAILY 03/28/21 10/11/21 Albuterol Inhaler [Ventolin Hfa 2 puff INHALATION RT-QID PRN 07/28/21 10/11/21 Inhaler] INSULIN ASPART (NovoLOG) [NovoLOG 18 unit SQ AC-TID 09/24/21 10/11/21 (formulary)] Insulin Detemir (Levemir) [Levemir] 20 unit SQ DAILY@0700 10/11/21 10/11/21 Previous Rx's Medication Instructions Recorded Fenofibrate [Lofibra] 160 mg PO DAILY #30 tab 03/23/19 Omeprazole [PriLOSEC] 40 mg PO DAILY #30 cap 10/15/21 Ibuprofen [Motrin] 600 mg PO Q8HR PRN #20 tab 10/17/21 Allergies Allergy/AdvReac Type Severity Reaction Status Date / Time levofloxacin [From Levaquin] Allergy Rash/Hives Verified 10/19/21 02:40 Review of Systems ROS Statement: Those systems with pertinent positive or pertinent negative responses have been documented in the HPI. ROS Other: All systems not noted in ROS Statement are negative. Constitutional: Denies: fever Eyes: Denies: eye pain ENT: Denies: ear pain Respiratory: Denies: cough Cardiovascular: Denies: palpitations Endocrine: Denies: fatigue Gastrointestinal: Denies: vomiting Genitourinary: Denies: dysuria Musculoskeletal: Denies: back pain Skin: Denies: rash Neurological: Denies: weakness Past Medical History Past Medical History: Diabetes Mellitus, GERD/Reflux, Hyperlipidemia, Hypertension, Syncope Additional Past Medical History / Comment(s): Pt recently admitted to [facility] on 07/21/21 with uncontrolled IDDM and hyperkalemia. Other hx: Recurrent pancreatitis, hypertriglyceridemia, elevated lipase, IDDM type II, UTI, chronic low back pain, bulging discs, dental abscesses in past. History of Any Multi-Drug Resistant Organisms: None Reported Past Surgical History: Tubal Ligation Additional Past Surgical History / Comment(s): Age 7 had VSD repair Past Anesthesia/Blood Transfusion Reactions: No Reported Reaction Past Psychological History: No Psychological Hx Reported Smoking Status: Former smoker Past Alcohol Use History: None Reported Past Drug Use History: None Reported - Past Family History Mother Family Medical History: No Reported History Additional Family Medical History / Comment(s): Mother was healthy. She is , pt cannot recall cause of . Father Family Medical History: Pneumonia Additional Family Medical History / Comment(s): Father at the age of 67yrs from pneumonia General Exam General appearance: alert, in no apparent distress Head exam: Present: normocephalic Eye exam: Present: normal appearance Neck exam: Present: normal inspection Respiratory exam: Present: normal lung sounds bilaterally Cardiovascular Exam: Present: regular rate, normal rhythm GI/Abdominal exam: Present: soft. Absent: tenderness Extremities exam: Present: normal inspection. Absent: pedal edema, calf tenderness Neurological exam: Present: alert Psychiatric exam: Present: normal affect, normal mood Skin exam: Present: normal color Disposition Clinical Impression: Chronic pain Disposition: HOME SELF-CARE Condition: Stable Instructions (If sedation given, give patient instructions): Chronic Pain (ED) Additional Instructions: Please do follow-up with your primary care physician regarding chronic pain. Return for change or worsening symptoms, or other concerns. Is patient prescribed a controlled substance at d/c from ED?: No Referrals: Guillermo Cerda MD [Primary Care Provider] - 1-2 days Time of Disposition: 16:26
[2021-10-19 16:36] VITALS: BP 137/73; PULSE 72; RESP 16; TEMP 98.8
== END 2021-10-19 16:44 | disposition home or self-care (01) ==
LOC: EC 13:50
DX: G89.29 Other chronic pain (principal); E11.9 Type 2 diabetes mellitus without complications; K21.9 Gastro-esophageal reflux disease without esophagitis; E78.5 Hyperlipidemia, unspecified; I10 Essential (primary) hypertension; Z88.1 Allergy status to other antibiotic agents; Z79.899 Other long term (current) drug therapy; Z79.84 Long term (current) use of oral hypoglycemic drugs; Z87.891 Personal history of nicotine dependence
CPT/HCPCS: 99283; 96372; J1885

== ENCOUNTER 2021-10-22 01:46 | Emergency (ER) | payer MEDICARE ==
[2021-10-22 01:50] VITALS: TEMP 98.9
[2021-10-22] MEDS ORDERED: IBUPROFEN 800 MG TAB PO STA (02:38)
[2021-10-22] MEDS ORDERED: ACETAMINOPHEN TAB 500 MG TAB PO STA (02:38)
[2021-10-22] MEDS ORDERED: INSULIN REGULAR 100 UNIT/ML VIAL (IM/SQ) SQ ONE (02:38)
--- NOTE | 2021-10-22 02:39 | ED ---
Recheck HPI - General Chief Complaint: Upper Respiratory Infection Stated Complaint: Cough Time Seen by Provider: 10/22/21 02:06 Source: patient Mode of arrival: EMS Limitations: no limitations - Related Data Home Medications Medication Instructions Recorded Confirmed Atorvastatin [Lipitor] 80 mg PO HS 06/25/19 10/11/21 lisinopriL 40 mg PO DAILY 09/24/20 10/11/21 metFORMIN HCL [Glucophage] 500 mg PO DAILY 09/24/20 10/11/21 traZODone HCL 50 - 100 mg PO HS PRN 01/11/21 10/11/21 Ergocalciferol (Vitamin D2) 1,250 mcg PO TU 03/03/21 10/11/21 [Drisdol (50,000 Iu)] Esomeprazole Magnesium [NexIUM] 20 mg PO DAILY 03/28/21 10/11/21 Albuterol Inhaler [Ventolin Hfa 2 puff INHALATION RT-QID PRN 07/28/21 10/11/21 Inhaler] INSULIN ASPART (NovoLOG) [NovoLOG 18 unit SQ AC-TID 09/24/21 10/11/21 (formulary)] Insulin Detemir (Levemir) [Levemir] 20 unit SQ DAILY@0700 10/11/21 10/11/21 Previous Rx's Medication Instructions Recorded Fenofibrate [Lofibra] 160 mg PO DAILY #30 tab 03/23/19 Omeprazole [PriLOSEC] 40 mg PO DAILY #30 cap 10/15/21 Ibuprofen [Motrin] 600 mg PO Q8HR PRN #20 tab 10/17/21 Allergies Allergy/AdvReac Type Severity Reaction Status Date / Time levofloxacin [From Levaquin] Allergy Rash/Hives Verified 10/22/21 01:50 Review of Systems ROS Statement: Those systems with pertinent positive or pertinent negative responses have been documented in the HPI. ROS Other: All systems not noted in ROS Statement are negative. Past Medical History Past Medical History: Diabetes Mellitus, GERD/Reflux, Hyperlipidemia, Hypertension, Syncope Additional Past Medical History / Comment(s): Pt recently admitted to [facility] on 07/21/21 with uncontrolled IDDM and hyperkalemia. Other hx: Recurrent pancreatitis, hypertriglyceridemia, elevated lipase, IDDM type II, UTI, chronic low back pain, bulging discs, dental abscesses in past. History of Any Multi-Drug Resistant Organisms: None Reported Past Surgical History: Tubal Ligation Additional Past Surgical History / Comment(s): Age 7 had VSD repair Past Anesthesia/Blood Transfusion Reactions: No Reported Reaction Past Psychological History: No Psychological Hx Reported Smoking Status: Former smoker Past Alcohol Use History: None Reported Past Drug Use History: None Reported - Past Family History Mother Family Medical History: No Reported History Additional Family Medical History / Comment(s): Mother was healthy. She is , pt cannot recall cause of . Father Family Medical History: Pneumonia Additional Family Medical History / Comment(s): Father at the age of 67yrs from pneumonia General Exam Limitations: no limitations Course Vital Signs 10/22/21 01:47 Temperature 98.9 F Pulse Rate 74 Respiratory 22 Rate Blood Pressure 153/68 O2 Sat by Pulse 96 Oximetry Medical Decision Making - Lab Data Lab Results 10/22/21 10/22/21 Range/Units 02:58 03:00 POC Glucose (mg/dL) 529 H (70-110) mg/dL POC Glu Ager Tender ID LashaunAshlee Urine Color Yellow Urine Appearance Clear (Clear) Urine pH 5.5 (5.0-8.0) Ur Specific [place] 1.027 (1.001-1.035) Urine Protein Trace H (Negative) Urine Glucose (UA) 4+ H (Negative) Urine Ketones Negative (Negative) Urine Blood Negative (Negative) Urine Nitrite Negative (Negative) Urine Bilirubin Negative (Negative) Urine Urobilinogen 2.0 (<2.0) mg/dL Ur Leukocyte Esterase Negative (Negative) Disposition Clinical Impression: Hyperglycemia, Leg pain Disposition: HOME SELF-CARE Condition: Fair Instructions (If sedation given, give patient instructions): Leg Pain (ED) Is patient prescribed a controlled substance at d/c from ED?: No Referrals: Guillermo Cerda MD [Primary Care Provider] - 1-2 days
[2021-10-22 03:00] LABS: Glucose,Whole Blood 529 mg/dL (70-110)
[2021-10-22 03:35] LABS: Appearance,Urine Clear (Clear); Bilirubin,Urine Negative (Negative); Blood,Urine Negative (Negative); Color,Urine Yellow; Glucose,Urine (UA) 4+ (Negative); Ketones,Urine Negative (Negative); Leukocyte Esterase,Urine Negative (Negative); Nitrite,Urine Negative (Negative); PH, Urine 5.5 (5.0-8.0); Protein,Urine Trace (Negative); Specific Gravity,Urine 1.027 (1.001-1.035)
[2021-10-22 05:01] VITALS: BP 167/74; PULSE 76; RESP 18
== END 2021-10-22 05:00 | disposition home or self-care (01) ==
LOC: EC 01:46
DX: E11.65 Type 2 diabetes mellitus with hyperglycemia (principal); M79.603 Pain in arm, unspecified; R05.9 Cough, unspecified; I10 Essential (primary) hypertension; K21.9 Gastro-esophageal reflux disease without esophagitis; E78.5 Hyperlipidemia, unspecified; Z87.891 Personal history of nicotine dependence; Z88.1 Allergy status to other antibiotic agents; Z79.4 Long term (current) use of insulin; Z79.899 Other long term (current) drug therapy
CPT/HCPCS: 36415; 81003; 99283

== ENCOUNTER 2021-10-24 04:25 | Emergency (ER) | payer MEDICARE ==
[2021-10-24 04:30] VITALS: BP 180/83; PULSE 76; RESP 18; TEMP 99.4
[2021-10-24 04:36] LABS: Glucose,Whole Blood 599 mg/dL (70-110)
[2021-10-24] MEDS ORDERED: INSULIN REGULAR 100 UNIT/ML VIAL (IM/SQ) SQ ONE ×2 (04:37→06:29)
[2021-10-24 04:52] LABS: Appearance,Urine Clear (Clear); Bilirubin,Urine Negative (Negative); Blood,Urine Negative (Negative); Color,Urine Colorless; Glucose,Urine (UA) 4+ (Negative); Ketones,Urine Negative (Negative); Leukocyte Esterase,Urine Negative (Negative); Nitrite,Urine Negative (Negative); PH, Urine 5.5 (5.0-8.0); Protein,Urine Negative (Negative); Urobilinogen,Urine <2.0 mg/dL (<2.0)
--- NOTE | 2021-10-24 05:09 | ED ---
Recheck HPI - General Chief Complaint: Weakness Stated Complaint: Hyperglycemia Time Seen by Provider: 10/24/21 04:30 Source: EMS Mode of arrival: EMS - Related Data Home Medications Medication Instructions Recorded Confirmed Atorvastatin [Lipitor] 80 mg PO HS 06/25/19 10/11/21 lisinopriL 40 mg PO DAILY 09/24/20 10/11/21 metFORMIN HCL [Glucophage] 500 mg PO DAILY 09/24/20 10/11/21 traZODone HCL 50 - 100 mg PO HS PRN 01/11/21 10/11/21 Ergocalciferol (Vitamin D2) 1,250 mcg PO TU 03/03/21 10/11/21 [Drisdol (50,000 Iu)] Esomeprazole Magnesium [NexIUM] 20 mg PO DAILY 03/28/21 10/11/21 Albuterol Inhaler [Ventolin Hfa 2 puff INHALATION RT-QID PRN 07/28/21 10/11/21 Inhaler] INSULIN ASPART (NovoLOG) [NovoLOG 18 unit SQ AC-TID 09/24/21 10/11/21 (formulary)] Insulin Detemir (Levemir) [Levemir] 20 unit SQ DAILY@0700 10/11/21 10/11/21 Previous Rx's Medication Instructions Recorded Fenofibrate [Lofibra] 160 mg PO DAILY #30 tab 03/23/19 Omeprazole [PriLOSEC] 40 mg PO DAILY #30 cap 10/15/21 Ibuprofen [Motrin] 600 mg PO Q8HR PRN #20 tab 10/17/21 Allergies Allergy/AdvReac Type Severity Reaction Status Date / Time levofloxacin [From Levaquin] Allergy Rash/Hives Verified 10/22/21 01:50 Review of Systems ROS Statement: Those systems with pertinent positive or pertinent negative responses have been documented in the HPI. ROS Other: All systems not noted in ROS Statement are negative. Past Medical History Past Medical History: Diabetes Mellitus, GERD/Reflux, Hyperlipidemia, Hypertension, Syncope Additional Past Medical History / Comment(s): Pt recently admitted to [facility] on 07/21/21 with uncontrolled IDDM and hyperkalemia. Other hx: Recurrent pancreatitis, hypertriglyceridemia, elevated lipase, IDDM type II, UTI, chronic low back pain, bulging discs, dental abscesses in past. History of Any Multi-Drug Resistant Organisms: None Reported Past Surgical History: Tubal Ligation Additional Past Surgical History / Comment(s): Age 7 had VSD repair Past Anesthesia/Blood Transfusion Reactions: No Reported Reaction Past Psychological History: No Psychological Hx Reported Smoking Status: Former smoker Past Alcohol Use History: None Reported Past Drug Use History: None Reported - Past Family History Mother Family Medical History: No Reported History Additional Family Medical History / Comment(s): Mother was healthy. She is , pt cannot recall cause of . Father Family Medical History: Pneumonia Additional Family Medical History / Comment(s): Father at the age of 67yrs from pneumonia Course Vital Signs 10/24/21 04:26 Temperature 99.4 F Pulse Rate 76 Respiratory 18 Rate Blood Pressure 180/83 O2 Sat by Pulse 96 Oximetry Medical Decision Making - Lab Data Lab Results 10/24/21 10/24/21 Range/Units 04:33 04:43 POC Glucose (mg/dL) 599 H (70-110) mg/dL POC Glu Food Sales Clerk ID Zori, Sarah Urine Color Colorless Urine Appearance Clear (Clear) Urine pH 5.5 (5.0-8.0) Ur Specific [place] 1.020 (1.001-1.035) Urine Protein Negative (Negative) Urine Glucose (UA) 4+ H (Negative) Urine Ketones Negative (Negative) Urine Blood Negative (Negative) Urine Nitrite Negative (Negative) Urine Bilirubin Negative (Negative) Urine Urobilinogen <2.0 (<2.0) mg/dL Ur Leukocyte Esterase Negative (Negative) Disposition Clinical Impression: Hyperglycemia, Dehydration Disposition: HOME SELF-CARE Condition: Fair Instructions (If sedation given, give patient instructions): Diabetic Hyperglycemia (ED) Is patient prescribed a controlled substance at d/c from ED?: No Referrals: Guillermo Cerda MD [Primary Care Provider] - 1-2 days
[2021-10-24 06:28] LABS: Glucose,Whole Blood 510 mg/dL (70-110)
== END 2021-10-24 07:31 | disposition home or self-care (01) ==
LOC: EC 04:25
DX: E11.65 Type 2 diabetes mellitus with hyperglycemia (principal); E86.0 Dehydration; E11.9 Type 2 diabetes mellitus without complications; K21.9 Gastro-esophageal reflux disease without esophagitis; E78.5 Hyperlipidemia, unspecified; I10 Essential (primary) hypertension; Z87.891 Personal history of nicotine dependence; Z88.1 Allergy status to other antibiotic agents; Z79.899 Other long term (current) drug therapy
CPT/HCPCS: 36415; 81003; 99285

== ENCOUNTER 2021-10-27 04:13 | Emergency (ER) | payer MEDICARE ==
[2021-10-27 04:21] VITALS: RESP 16; TEMP 98.6
[2021-10-27 05:20] LABS: Anisocytosis Slight; Basophils # (A) 0.1 k/uL (0-0.2); Basophils % (A) 1 %; Eosinophils # (A) 0.4 k/uL (0-0.7); Eosinophils % (A) 4 %; HCT 32.7 % (34.0-46.0); HGB 9.2 gm/dL (11.4-16.0); Hypochromasia Marked; Lymphocytes # (A) 2.1 k/uL (1.0-4.8); Lymphocytes % (A) 22 %; MCH 20.8 pg (25.0-35.0); MCHC 28.1 g/dL (31.0-37.0); MCV 73.9 fL (80.0-100.0); Mean Platelet Volume 7.5; Microcytosis Moderate; Monocytes # (A) 0.4 k/uL (0-1.0); Monocytes % (A) 5 %; Neutrophils # (A) 6.3 k/uL (1.3-7.7); Neutrophils % (A) 68 %; Platelet Count 541 k/uL (150-450); RBC 4.43 m/uL (3.80-5.40); RDW 18.2 % (11.5-15.5); WBC 9.3 k/uL (3.8-10.6)
[2021-10-27 05:35] LABS: ALT 16 U/L (4-34); AST 36 U/L (14-36); African American GFR (CKD) >90 (>60 ml/min/1.73 sqM); Albumin 3.5 g/dL (3.5-5.0); Alkaline Phosphatase 103 U/L (38-126); Anion Gap 9 mmol/L; Blood Urea Nitrogen 12 mg/dL (7-17); C Reactive Protein 1.2 mg/dL (<1.0); Calcium 8.7 mg/dL (8.4-10.2); Carbon Dioxide 22 mmol/L (22-30); Chloride 104 mmol/L (98-107); Glucose 325 mg/dL (74-99); Non-African American GFR(CKD) >90 (>60 ml/min/1.73 sqM); Potassium 4.8 mmol/L (3.5-5.1); Sodium 135 mmol/L (137-145); Total Bilirubin 0.5 mg/dL (0.2-1.3); Total Protein 6.5 g/dL (6.3-8.2)
[2021-10-27] MEDS ORDERED: INSULIN REGULAR 100 UNIT/ML VIAL (IV) SQ STA (06:16)
[2021-10-27] MEDS ORDERED: SODIUM CHLORIDE 0.9% 2,000 ML IV ONE (06:16)
[2021-10-27 08:07] LABS: Glucose,Whole Blood 232 mg/dL (70-110)
--- NOTE | 2021-10-27 08:24 | ED ---
General Adult HPI - General Chief complaint: Headache Stated complaint: Nausea, Headache Time Seen by Provider: 10/27/21 04:33 Source: patient Mode of arrival: EMS Limitations: no limitations - History of Present Illness Initial comments: This patient is a 51-year-old woman presenting with generalized headache. Also complains that blood sugars have been elevated. Patient not noting fever or chills. No neurologic symptoms. No change in vision. There is no element of neck pain or stiffness. Not worst headache of life. -: hour(s) Location: head Quality: aching Consistency: constant Improves with: none Worsens with: none Associated Symptoms: denies other symptoms Treatments Prior to Arrival: none - Related Data Home Medications Medication Instructions Recorded Confirmed Atorvastatin [Lipitor] 80 mg PO HS 06/25/19 10/11/21 lisinopriL 40 mg PO DAILY 09/24/20 10/11/21 metFORMIN HCL [Glucophage] 500 mg PO DAILY 09/24/20 10/11/21 traZODone HCL 50 - 100 mg PO HS PRN 01/11/21 10/11/21 Ergocalciferol (Vitamin D2) 1,250 mcg PO TU 03/03/21 10/11/21 [Drisdol (50,000 Iu)] Esomeprazole Magnesium [NexIUM] 20 mg PO DAILY 03/28/21 10/11/21 Albuterol Inhaler [Ventolin Hfa 2 puff INHALATION RT-QID PRN 07/28/21 10/11/21 Inhaler] INSULIN ASPART (NovoLOG) [NovoLOG 18 unit SQ AC-TID 09/24/21 10/11/21 (formulary)] Insulin Detemir (Levemir) [Levemir] 20 unit SQ DAILY@0700 10/11/21 10/11/21 Previous Rx's Medication Instructions Recorded Fenofibrate [Lofibra] 160 mg PO DAILY #30 tab 03/23/19 Omeprazole [PriLOSEC] 40 mg PO DAILY #30 cap 10/15/21 Ibuprofen [Motrin] 600 mg PO Q8HR PRN #20 tab 10/17/21 Allergies Allergy/AdvReac Type Severity Reaction Status Date / Time levofloxacin [From Levaquin] Allergy Rash/Hives Verified 10/22/21 01:50 Review of Systems ROS Statement: Those systems with pertinent positive or pertinent negative responses have been documented in the HPI. ROS Other: All systems not noted in ROS Statement are negative. Constitutional: Denies: fever, chills, weakness Eyes: Denies: eye pain, vision change ENT: Denies: ear pain, congestion Respiratory: Denies: cough, dyspnea Cardiovascular: Denies: chest pain, syncope Gastrointestinal: Denies: abdominal pain Musculoskeletal: Denies: back pain Skin: Denies: rash Neurological: Reports: headache. Denies: weakness, numbness, paresthesias, confusion Past Medical History Past Medical History: Diabetes Mellitus, GERD/Reflux, Hyperlipidemia, Hypertension, Syncope Additional Past Medical History / Comment(s): Pt recently admitted to [facility] on 07/21/21 with uncontrolled IDDM and hyperkalemia. Other hx: Recurrent pancreatitis, hypertriglyceridemia, elevated lipase, IDDM type II, UTI, chronic low back pain, bulging discs, dental abscesses in past. History of Any Multi-Drug Resistant Organisms: None Reported Past Surgical History: Tubal Ligation Additional Past Surgical History / Comment(s): Age 7 had VSD repair Past Anesthesia/Blood Transfusion Reactions: No Reported Reaction Past Psychological History: No Psychological Hx Reported Smoking Status: Former smoker Past Alcohol Use History: None Reported Past Drug Use History: None Reported - Past Family History Mother Family Medical History: No Reported History Additional Family Medical History / Comment(s): Mother was healthy. She is , pt cannot recall cause of . Father Family Medical History: Pneumonia Additional Family Medical History / Comment(s): Father at the age of 67yrs from pneumonia General Exam Limitations: no limitations General appearance: alert, in no apparent distress Head exam: Present: atraumatic, normocephalic Eye exam: Present: normal appearance, PERRL, EOMI. Absent: scleral icterus, conjunctival injection, nystagmus Neck exam: Present: normal inspection, full ROM. Absent: tenderness, meningismus Respiratory exam: Present: normal lung sounds bilaterally. Absent: respiratory distress, wheezes, rales, rhonchi, stridor Cardiovascular Exam: Present: regular rate, normal rhythm, normal heart sounds. Absent: systolic murmur, diastolic murmur, rubs, gallop GI/Abdominal exam: Present: soft. Absent: tenderness Back exam: Present: normal inspection. Absent: vertebral tenderness Neurological exam: Present: alert, oriented X3, CN II-XII intact. Absent: motor sensory deficit Skin exam: Present: warm, dry, intact, normal color. Absent: rash Course Vital Signs 10/27/21 10/27/21 04:16 09:02 Temperature 98.6 F 98.6 F Pulse Rate 70 58 L Respiratory 16 16 Rate Blood Pressure 163/83 145/77 O2 Sat by Pulse 95 97 Oximetry Medical Decision Making - Lab Data Result diagrams: 10/27/21 04:52 10/27/21 04:52 Lab Results 10/27/21 10/27/21 10/27/21 Range/Units 04:52 04:52 08:05 WBC 9.3 (3.8-10.6) k/uL RBC 4.43 (3.80-5.40) m/uL Hgb 9.2 L (11.4-16.0) gm/dL Hct 32.7 L (34.0-46.0) % MCV 73.9 L (80.0-100.0) fL MCH 20.8 L (25.0-35.0) pg MCHC 28.1 L (31.0-37.0) g/dL RDW 18.2 H (11.5-15.5) % Plt Count 541 H (150-450) k/uL MPV 7.5 Neutrophils % 68 % Lymphocytes % 22 % Monocytes % 5 % Eosinophils % 4 % Basophils % 1 % Neutrophils # 6.3 (1.3-7.7) k/uL Lymphocytes # 2.1 (1.0-4.8) k/uL Monocytes # 0.4 (0-1.0) k/uL Eosinophils # 0.4 (0-0.7) k/uL Basophils # 0.1 (0-0.2) k/uL Hypochromasia Marked Anisocytosis Slight Microcytosis Moderate Sodium 135 L (137-145) mmol/L Potassium 4.8 (3.5-5.1) mmol/L Chloride 104 (98-107) mmol/L Carbon Dioxide 22 (22-30) mmol/L Anion Gap 9 mmol/L BUN 12 (7-17) mg/dL Creatinine 0.75 (0.52-1.04) mg/dL Est GFR (CKD-EPI)AfAm >90 (>60 ml/min/1.73 sqM) Est GFR (CKD-EPI)NonAf >90 (>60 ml/min/1.73 sqM) Glucose 325 H (74-99) mg/dL POC Glucose (mg/dL) 232 H (70-110) mg/dL POC Glu Credit Investigator ID Juliana Beltran Calcium 8.7 (8.4-10.2) mg/dL Total Bilirubin 0.5 (0.2-1.3) mg/dL AST 36 (14-36) U/L ALT 16 (4-34) U/L Alkaline Phosphatase 103 (38-126) U/L C-Reactive Protein 1.2 H (<1.0) mg/dL Total Protein 6.5 (6.3-8.2) g/dL Albumin 3.5 (3.5-5.0) g/dL Acetone, Qual Negative (Negative) Disposition Clinical Impression: Hyperglycemia, Headache Disposition: HOME SELF-CARE Condition: Fair Instructions (If sedation given, give patient instructions): Diabetic Hyperglycemia (ED) Is patient prescribed a controlled substance at d/c from ED?: No Referrals: Guillermo Cerda MD [Primary Care Provider] - 1-2 days
[2021-10-27 09:09] VITALS: BP 145/77; PULSE 58
== END 2021-10-27 09:08 | disposition home or self-care (01) ==
LOC: EC 04:13
DX: R51.9 Headache, unspecified (principal); R73.9 Hyperglycemia, unspecified; E78.5 Hyperlipidemia, unspecified; I10 Essential (primary) hypertension; F17.200 Nicotine dependence, unspecified, uncomplicated; Z88.1 Allergy status to other antibiotic agents
CPT/HCPCS: 36415; 80053; 82009; 85025; 86140; 96360; 96361; 99284

== ENCOUNTER 2021-10-29 02:14 | Emergency (ER) | payer MEDICARE ==
[2021-10-29] MEDS ORDERED: SODIUM CHLORIDE 0.9% 1,000 ML IV ONE ×2 (02:31→04:21)
[2021-10-29] MEDS ORDERED: INSULIN REGULAR 100 UNIT/ML VIAL (IV) IV STA (02:31)
[2021-10-29 02:32] LABS: Glucose,Whole Blood >600 mg/dL (70-110)
[2021-10-29 02:34] VITALS: RESP 18; TEMP 99.6
[2021-10-29 03:41] LABS: African American GFR (CKD) >90 (>60 ml/min/1.73 sqM); Anion Gap 9 mmol/L; Blood Urea Nitrogen 13 mg/dL (7-17); Calcium 9.4 mg/dL (8.4-10.2); Carbon Dioxide 24 mmol/L (22-30); Chloride 97 mmol/L (98-107); Non-African American GFR(CKD) 84 (>60 ml/min/1.73 sqM); Potassium 4.6 mmol/L (3.5-5.1); Sodium 130 mmol/L (137-145)
[2021-10-29 03:51] LABS: Anisocytosis Slight; Basophils # (A) 0.1 k/uL (0-0.2); Basophils % (A) 1 %; Eosinophils # (A) 0.2 k/uL (0-0.7); Eosinophils % (A) 2 %; HCT 35.4 % (34.0-46.0); HGB 9.5 gm/dL (11.4-16.0); Hypochromasia Marked; Lymphocytes # (A) 1.7 k/uL (1.0-4.8); Lymphocytes % (A) 20 %; MCH 21.4 pg (25.0-35.0); MCHC 26.9 g/dL (31.0-37.0); Mean Platelet Volume 7.7; Microcytosis Slight; Monocytes # (A) 0.4 k/uL (0-1.0); Monocytes % (A) 5 %; Neutrophils # (A) 6.1 k/uL (1.3-7.7); Neutrophils % (A) 71 %; Platelet Count 676 k/uL (150-450); RBC 4.44 m/uL (3.80-5.40); RDW 18.4 % (11.5-15.5); WBC 8.5 k/uL (3.8-10.6)
[2021-10-29 04:07] LABS: MCV 79.6 fL (80.0-100.0)
[2021-10-29] MEDS ORDERED: ACETAMINOPHEN TAB 325 MG TAB PO STA (04:16)
--- NOTE | 2021-10-29 04:21 | ED ---
Recheck HPI - General Chief Complaint: Recheck/Abnormal Lab/Rx Stated Complaint: high sugar Time Seen by Provider: 10/29/21 02:31 Source: patient, EMS Mode of arrival: EMS Limitations: no limitations - History of Present Illness Initial Comments: This patient is a 51-year-old woman who presents with complaint that her blood sugar has been running high. The patient states she had eaten a sandwich and chips and then when she was checking her blood sugar later this evening it was reading high. Patient denies symptoms. No chest pain, dyspnea, diaphoresis, nausea or vomiting. Patient denies symptoms of infection. MD Complaint: abnormal lab -: hour(s) Initial Visit For: other Returns Today for: other Symptoms Since Prior Visit: no new symptoms Associated Symptoms: none - Related Data Home Medications Medication Instructions Recorded Confirmed Atorvastatin [Lipitor] 80 mg PO HS 06/25/19 10/11/21 lisinopriL 40 mg PO DAILY 09/24/20 10/11/21 metFORMIN HCL [Glucophage] 500 mg PO DAILY 09/24/20 10/11/21 traZODone HCL 50 - 100 mg PO HS PRN 01/11/21 10/11/21 Ergocalciferol (Vitamin D2) 1,250 mcg PO TU 03/03/21 10/11/21 [Drisdol (50,000 Iu)] Esomeprazole Magnesium [NexIUM] 20 mg PO DAILY 03/28/21 10/11/21 Albuterol Inhaler [Ventolin Hfa 2 puff INHALATION RT-QID PRN 07/28/21 10/11/21 Inhaler] INSULIN ASPART (NovoLOG) [NovoLOG 18 unit SQ AC-TID 09/24/21 10/11/21 (formulary)] Insulin Detemir (Levemir) [Levemir] 20 unit SQ DAILY@0700 10/11/21 10/11/21 Previous Rx's Medication Instructions Recorded Fenofibrate [Lofibra] 160 mg PO DAILY #30 tab 03/23/19 Omeprazole [PriLOSEC] 40 mg PO DAILY #30 cap 10/15/21 Ibuprofen [Motrin] 600 mg PO Q8HR PRN #20 tab 10/17/21 Allergies Allergy/AdvReac Type Severity Reaction Status Date / Time levofloxacin [From Levaquin] Allergy Rash/Hives Verified 10/22/21 01:50 Review of Systems ROS Statement: Those systems with pertinent positive or pertinent negative responses have been documented in the HPI. ROS Other: All systems not noted in ROS Statement are negative. Constitutional: Denies: fever, chills ENT: Denies: throat pain, congestion Respiratory: Denies: cough, dyspnea Cardiovascular: Denies: palpitations, edema Gastrointestinal: Denies: abdominal pain, vomiting, diarrhea Genitourinary: Denies: dysuria, frequency, hematuria Musculoskeletal: Denies: back pain Skin: Denies: rash Neurological: Denies: headache, weakness Past Medical History Past Medical History: Diabetes Mellitus, GERD/Reflux, Hyperlipidemia, Hypertension, Syncope Additional Past Medical History / Comment(s): Pt recently admitted to [facility] on 07/21/21 with uncontrolled IDDM and hyperkalemia. Other hx: Recurrent pancreatitis, hypertriglyceridemia, elevated lipase, IDDM type II, UTI, chronic low back pain, bulging discs, dental abscesses in past. History of Any Multi-Drug Resistant Organisms: None Reported Past Surgical History: Tubal Ligation Additional Past Surgical History / Comment(s): Age 7 had VSD repair Past Anesthesia/Blood Transfusion Reactions: No Reported Reaction Past Psychological History: No Psychological Hx Reported Smoking Status: Former smoker Past Alcohol Use History: None Reported Past Drug Use History: None Reported - Past Family History Mother Family Medical History: No Reported History Additional Family Medical History / Comment(s): Mother was healthy. She is dec eased, pt cannot recall cause of . Father Family Medical History: Pneumonia Additional Family Medical History / Comment(s): Father at the age of 67yrs from pneumonia General Exam Limitations: no limitations General appearance: alert, in no apparent distress Head exam: Present: atraumatic, normocephalic Eye exam: Present: normal appearance. Absent: scleral icterus, conjunctival injection ENT exam: Present: mucous membranes dry Neck exam: Present: normal inspection Respiratory exam: Present: normal lung sounds bilaterally. Absent: respiratory distress, wheezes, rales, rhonchi, stridor Cardiovascular Exam: Present: regular rate, normal rhythm, normal heart sounds. Absent: systolic murmur, diastolic murmur, rubs, gallop GI/Abdominal exam: Present: soft. Absent: distended, tenderness, guarding, rebound Extremities exam: Present: normal inspection, normal capillary refill. Absent: pedal edema, calf tenderness Back exam: Present: normal inspection. Absent: CVA tenderness (R), CVA tenderness (L) Neurological exam: Present: alert Skin exam: Present: warm, dry, intact, normal color. Absent: rash Course Vital Signs 10/29/21 10/29/21 02:29 07:13 Temperature 99.6 F Pulse Rate 70 60 Respiratory 18 18 Rate Blood Pressure 153/80 167/83 O2 Sat by Pulse 95 98 Oximetry Medical Decision Making - Lab Data Result diagrams: 10/29/21 02:54 10/29/21 02:54 Lab Results 10/29/21 10/29/21 10/29/21 Range/Units 02:29 02:54 02:54 WBC 8.5 (3.8-10.6) k/uL RBC 4.44 (3.80-5.40) m/uL Hgb 9.5 L (11.4-16.0) gm/dL Hct 35.4 (34.0-46.0) % MCV 79.6 L D (80.0-100.0) fL MCH 21.4 L (25.0-35.0) pg MCHC 26.9 L (31.0-37.0) g/dL RDW 18.4 H (11.5-15.5) % Plt Count 676 H (150-450) k/uL MPV 7.7 Neutrophils % 71 % Lymphocytes % 20 % Monocytes % 5 % Eosinophils % 2 % Basophils % 1 % Neutrophils # 6.1 (1.3-7.7) k/uL Lymphocytes # 1.7 (1.0-4.8) k/uL Monocytes # 0.4 (0-1.0) k/uL Eosinophils # 0.2 (0-0.7) k/uL Basophils # 0.1 (0-0.2) k/uL Hypochromasia Marked Anisocytosis Slight Microcytosis Slight Sodium 130 L (137-145) mmol/L Potassium 4.6 (3.5-5.1) mmol/L Chloride 97 L (98-107) mmol/L Carbon Dioxide 24 (22-30) mmol/L Anion Gap 9 mmol/L BUN 13 (7-17) mg/dL Creatinine 0.83 (0.52-1.04) mg/dL Est GFR (CKD-EPI)AfAm >90 (>60 ml/min/1.73 sqM) Est GFR (CKD-EPI)NonAf 84 (>60 ml/min/1.73 sqM) Glucose 625 H* (74-99) mg/dL POC Glucose (mg/dL) >600 H (70-110) mg/dL POC Glu Chief Mate ID John Thibodeaux Calcium 9.4 (8.4-10.2) mg/dL Acetone, Qual Negative (Negative) 10/29/21 Range/Units 06:03 WBC (3.8-10.6) k/uL RBC (3.80-5.40) m/uL Hgb (11.4-16.0) gm/dL Hct (34.0-46.0) % MCV (80.0-100.0) fL MCH (25.0-35.0) pg MCHC (31.0-37.0) g/dL RDW (11.5-15.5) % Plt Count (150-450) k/uL MPV Neutrophils % % Lymphocytes % % Monocytes % % Eosinophils % % Basophils % % Neutrophils # (1.3-7.7) k/uL Lymphocytes # (1.0-4.8) k/uL Monocytes # (0-1.0) k/uL Eosinophils # (0-0.7) k/uL Basophils # (0-0.2) k/uL Hypochromasia Anisocytosis Microcytosis Sodium (137-145) mmol/L Potassium (3.5-5.1) mmol/L Chloride (98-107) mmol/L Carbon Dioxide (22-30) mmol/L Anion Gap mmol/L BUN (7-17) mg/dL Creatinine (0.52-1.04) mg/dL Est GFR (CKD-EPI)AfAm (>60 ml/min/1.73 sqM) Est GFR (CKD-EPI)NonAf (>60 ml/min/1.73 sqM) Glucose (74-99) mg/dL POC Glucose (mg/dL) 432 H (70-110) mg/dL POC Glu Chief Mate ID Calcium (8.4-10.2) mg/dL Acetone, Qual (Negative) Disposition Clinical Impression: Hyperglycemia Disposition: HOME SELF-CARE Condition: Fair Instructions (If sedation given, give patient instructions): Diabetic Hyperglycemia (ED) Is patient prescribed a controlled substance at d/c from ED?: No Referrals: Guillermo Cerda MD [Primary Care Provider] - 1-2 days
[2021-10-29 05:08] LABS: Glucose 625 mg/dL (74-99)
[2021-10-29 06:03] LABS: Glucose,Whole Blood 432 mg/dL (70-110)
[2021-10-29] MEDS ORDERED: SODIUM CHLORIDE 0.9% 1,000 ML IV STA (07:05)
[2021-10-29] MEDS ORDERED: IBUPROFEN 400 MG TAB PO STA (07:15)
[2021-10-29 08:14] LABS: Glucose,Whole Blood 412 mg/dL (70-110)
[2021-10-29 08:25] VITALS: BP 156/82; PULSE 78
== END 2021-10-29 08:20 | disposition home or self-care (01) ==
LOC: EC 02:14
DX: E11.65 Type 2 diabetes mellitus with hyperglycemia (principal); K21.9 Gastro-esophageal reflux disease without esophagitis; E78.5 Hyperlipidemia, unspecified; I10 Essential (primary) hypertension; Z87.891 Personal history of nicotine dependence; Z88.1 Allergy status to other antibiotic agents; Z79.899 Other long term (current) drug therapy; Z79.4 Long term (current) use of insulin; Z79.84 Long term (current) use of oral hypoglycemic drugs
CPT/HCPCS: 36415; 80048; 82009; 85025; 96361; 96374; 99285

== ENCOUNTER 2021-10-30 00:31 | Emergency (ER) | payer MEDICARE ==
--- NOTE | 2021-10-30 00:36 | ED ---
Recheck HPI - General Stated Complaint: body aches, nausea Time Seen by Provider: 10/30/21 00:35 Source: RN notes reviewed, old records reviewed Limitations: no limitations - History of Present Illness Initial Comments: This is a 51-year-old female to the emergency department for evaluation. Patient's coming in with multiple complaints headache and sore throat chest pain patient states blood sugars been significantly elevated and it concern for headache nausea and weakness. MD Complaint: abnormal lab (Elevated blood sugar) -: unknown Returns Today for: Called Because of Abnormal Lab/Test Symptoms Since Prior Visit: no new symptoms Context: called for abnormal lab result Associated Symptoms: none Treatments Prior to Arrival: other medications - Related Data Home Medications Medication Instructions Recorded Confirmed Atorvastatin [Lipitor] 80 mg PO HS 06/25/19 10/11/21 lisinopriL 40 mg PO DAILY 09/24/20 10/11/21 metFORMIN HCL [Glucophage] 500 mg PO DAILY 09/24/20 10/11/21 traZODone HCL 50 - 100 mg PO HS PRN 01/11/21 10/11/21 Ergocalciferol (Vitamin D2) 1,250 mcg PO TU 03/03/21 10/11/21 [Drisdol (50,000 Iu)] Esomeprazole Magnesium [NexIUM] 20 mg PO DAILY 03/28/21 10/11/21 Albuterol Inhaler [Ventolin Hfa 2 puff INHALATION RT-QID PRN 07/28/21 10/11/21 Inhaler] INSULIN ASPART (NovoLOG) [NovoLOG 18 unit SQ AC-TID 09/24/21 10/11/21 (formulary)] Insulin Detemir (Levemir) [Levemir] 20 unit SQ DAILY@0700 10/11/21 10/11/21 Previous Rx's Medication Instructions Recorded Fenofibrate [Lofibra] 160 mg PO DAILY #30 tab 03/23/19 Omeprazole [PriLOSEC] 40 mg PO DAILY #30 cap 10/15/21 Ibuprofen [Motrin] 600 mg PO Q8HR PRN #20 tab 10/17/21 Allergies Allergy/AdvReac Type Severity Reaction Status Date / Time levofloxacin [From Levaquin] Allergy Rash/Hives Verified 11/03/21 01:05 Review of Systems ROS Statement: Those systems with pertinent positive or pertinent negative responses have been documented in the HPI. ROS Other: All systems not noted in ROS Statement are negative. Past Medical History Past Medical History: Diabetes Mellitus, GERD/Reflux, Hyperlipidemia, Hyp ertension, Syncope Additional Past Medical History / Comment(s): Pt recently admitted to [facility] on 07/21/21 with uncontrolled IDDM and hyperkalemia. Other hx: Recurrent pancr eatitis, hypertriglyceridemia, elevated lipase, IDDM type II, UTI, chronic low back pain, bulging discs, dental abscesses in past. History of Any Multi-Drug Resistant Organisms: None Reported Past Surgical History: Tubal Ligation Additional Past Surgical History / Comment(s): Age 7 had VSD repair Past Anesthesia/Blood Transfusion Reactions: No Reported Reaction Past Psychological History: No Psychological Hx Reported Smoking Status: Former smoker Past Alcohol Use History: None Reported Past Drug Use History: None Reported - Past Family History Mother Family Medical History: No Reported History Additional Family Medical History / Comment(s): Mother was healthy. She is , pt cannot recall cause of . Father Family Medical History: Pneumonia Additional Family Medical History / Comment(s): Father at the age of 67yrs from pneumonia General Exam General appearance: alert, in no apparent distress Head exam: Present: atraumatic, normocephalic, normal inspection Eye exam: Present: normal appearance, PERRL, EOMI. Absent: scleral icterus, conjunctival injection, periorbital swelling ENT exam: Present: normal exam, mucous membranes moist Neck exam: Present: normal inspection. Absent: tenderness, meningismus, lymphadenopathy Respiratory exam: Present: normal lung sounds bilaterally. Absent: respiratory distress, wheezes, rales, rhonchi, stridor Cardiovascular Exam: Present: regular rate, normal rhythm, normal heart sounds. Absent: systolic murmur, diastolic murmur, rubs, gallop, clicks GI/Abdominal exam: Present: soft, normal bowel sounds. Absent: distended, tenderness, guarding, rebound, rigid Extremities exam: Present: normal inspection, full ROM, normal capillary refill. Absent: tenderness, pedal edema, joint swelling, calf tenderness Back exam: Present: normal inspection Neurological exam: Present: alert, oriented X3, CN II-XII intact Psychiatric exam: Present: normal affect, normal mood Skin exam: Present: warm, dry, intact, normal color. Absent: rash Course Vital Signs 10/30/21 10/30/21 00:32 02:19 Temperature 97.9 F Pulse Rate 67 65 Respiratory 15 16 Rate Blood Pressure 145/75 160/82 O2 Sat by Pulse 96 96 Oximetry - Reevaluation(s) Reevaluation #1: 10/30/21 Record is reviewed Reevaluation #2: 10/30/21 Patient is in no acute distress informed of results, questions answered Medical Decision Making - Medical Decision Making 51 female to the emergency department for evaluation patient presents today for evaluation of multiple complaints, she is well-known to our facility is in no acute distress and can be discharged home - Lab Data Result diagrams: 10/30/21 00:42 10/30/21 00:42 Lab Results 10/30/21 10/30/21 10/30/21 Range/Units 00:42 00:42 00:42 WBC 9.2 (3.8-10.6) k/uL RBC 4.13 (3.80-5.40) m/uL Hgb 9.1 L (11.4-16.0) gm/dL Hct 31.7 L (34.0-46.0) % MCV 76.8 L (80.0-100.0) fL MCH 22.0 L (25.0-35.0) pg MCHC 28.7 L (31.0-37.0) g/dL RDW 18.3 H (11.5-15.5) % Plt Count 579 H (150-450) k/uL MPV 6.9 Neutrophils % 72 % Lymphocytes % 21 % Monocytes % 4 % Eosinophils % 2 % Basophils % 0 % Neutrophils # 6.6 (1.3-7.7) k/uL Lymphocytes # 1.9 (1.0-4.8) k/uL Monocytes # 0.4 (0-1.0) k/uL Eosinophils # 0.2 (0-0.7) k/uL Basophils # 0.0 (0-0.2) k/uL Hypochromasia Marked Anisocytosis Slight Microcytosis Slight Sodium 133 L (137-145) mmol/L Potassium 4.2 (3.5-5.1) mmol/L Chloride 102 (98-107) mmol/L Carbon Dioxide 23 (22-30) mmol/L Anion Gap 8 mmol/L BUN 17 (7-17) mg/dL Creatinine 0.70 (0.52-1.04) mg/dL Est GFR (CKD-EPI)AfAm >90 (>60 ml/min/1.73 sqM) Est GFR (CKD-EPI)NonAf >90 (>60 ml/min/1.73 sqM) Glucose 408 H (74-99) mg/dL Calcium 8.6 (8.4-10.2) mg/dL Phosphorus 4.2 (2.5-4.5) mg/dL Magnesium 1.2 L (1.6-2.3) mg/dL Total Bilirubin 0.4 (0.2-1.3) mg/dL AST 25 (14-36) U/L ALT 14 (4-34) U/L Alkaline Phosphatase 107 (38-126) U/L Troponin I <0.012 (0.000-0.034) ng/mL NT-Pro-B Natriuret Pep pg/mL Total Protein 6.0 L (6.3-8.2) g/dL Albumin 3.3 L (3.5-5.0) g/dL Influenza Type A (PCR) (Not Detectd) Influenza Type B (PCR) (Not Detectd) RSV (PCR) (Not Detectd) SARS-CoV-2 (PCR) (Not Detectd) 10/30/21 10/30/21 Range/Units 00:42 02:23 WBC (3.8-10.6) k/uL RBC (3.80-5.40) m/uL Hgb (11.4-16.0) gm/dL Hct (34.0-46.0) % MCV (80.0-100.0) fL MCH (25.0-35.0) pg MCHC (31.0-37.0) g/dL RDW (11.5-15.5) % Plt Count (150-450) k/uL MPV Neutrophils % % Lymphocytes % % Monocytes % % Eosinophils % % Basophils % % Neutrophils # (1.3-7.7) k/uL Lymphocytes # (1.0-4.8) k/uL Monocytes # (0-1.0) k/uL Eosinophils # (0-0.7) k/uL Basophils # (0-0.2) k/uL Hypochromasia Anisocytosis Microcytosis Sodium (137-145) mmol/L Potassium (3.5-5.1) mmol/L Chloride (98-107) mmol/L Carbon Dioxide (22-30) mmol/L Anion Gap mmol/L BUN (7-17) mg/dL Creatinine (0.52-1.04) mg/dL Est GFR (CKD-EPI)AfAm (>60 ml/min/1.73 sqM) Est GFR (CKD-EPI)NonAf (>60 ml/min/1.73 sqM) Glucose (74-99) mg/dL Calcium (8.4-10.2) mg/dL Phosphorus (2.5-4.5) mg/dL Magnesium (1.6-2.3) mg/dL Total Bilirubin (0.2-1.3) mg/dL AST (14-36) U/L ALT (4-34) U/L Alkaline Phosphatase (38-126) U/L Troponin I (0.000-0.034) ng/mL NT-Pro-B Natriuret Pep 454 pg/mL Total Protein (6.3-8.2) g/dL Albumin (3.5-5.0) g/dL Influenza Type A (PCR) Not Detected (Not Detectd) Influenza Type B (PCR) Not Detected (Not Detectd) RSV (PCR) Not Detected (Not Detectd) SARS-CoV-2 (PCR) Not Detected (Not Detectd) Disposition Clinical Impression: Tension headache, Dehydration, Hyperglycemia, Anemia Disposition: HOME SELF-CARE Instructions (If sedation given, give patient instructions): Acute Headache (ED) Is patient prescribed a controlled substance at d/c from ED?: No Referrals: Guillermo Cerda MD [Primary Care Provider] - 1-2 days Time of Disposition: 02:20
[2021-10-30] MEDS ORDERED: SODIUM CHLORIDE 0.9% 1,000 ML IV STA (00:41)
[2021-10-30 01:19] VITALS: TEMP 97.9
[2021-10-30 01:25] LABS: Anisocytosis Slight; Basophils % (A) 0 %; Eosinophils # (A) 0.2 k/uL (0-0.7); Eosinophils % (A) 2 %; HCT 31.7 % (34.0-46.0); HGB 9.1 gm/dL (11.4-16.0); Hypochromasia Marked; Lymphocytes # (A) 1.9 k/uL (1.0-4.8); Lymphocytes % (A) 21 %; MCHC 28.7 g/dL (31.0-37.0); MCV 76.8 fL (80.0-100.0); Mean Platelet Volume 6.9; Microcytosis Slight; Monocytes # (A) 0.4 k/uL (0-1.0); Monocytes % (A) 4 %; Neutrophils # (A) 6.6 k/uL (1.3-7.7); Neutrophils % (A) 72 %; Platelet Count 579 k/uL (150-450); RBC 4.13 m/uL (3.80-5.40); RDW 18.3 % (11.5-15.5); WBC 9.2 k/uL (3.8-10.6)
[2021-10-30 01:45] LABS: ALT 14 U/L (4-34); AST 25 U/L (14-36); African American GFR (CKD) >90 (>60 ml/min/1.73 sqM); Albumin 3.3 g/dL (3.5-5.0); Alkaline Phosphatase 107 U/L (38-126); Anion Gap 8 mmol/L; Blood Urea Nitrogen 17 mg/dL (7-17); Calcium 8.6 mg/dL (8.4-10.2); Carbon Dioxide 23 mmol/L (22-30); Chloride 102 mmol/L (98-107); Glucose 408 mg/dL (74-99); Magnesium 1.2 mg/dL (1.6-2.3); Non-African American GFR(CKD) >90 (>60 ml/min/1.73 sqM); Phosphorus 4.2 mg/dL (2.5-4.5); Potassium 4.2 mmol/L (3.5-5.1); Sodium 133 mmol/L (137-145); Total Bilirubin 0.4 mg/dL (0.2-1.3)
[2021-10-30] MEDS ORDERED: MAGNESIUM OXIDE 400 MG TAB PO STA ×2 (01:52)
[2021-10-30] MEDS ORDERED: INSULIN REGULAR 100 UNIT/ML VIAL (IV) IV ONE (01:52)
[2021-10-30 02:21] VITALS: BP 160/82; PULSE 65; RESP 16
== END 2021-10-30 02:25 | disposition home or self-care (01) ==
LOC: EC 00:31
DX: G44.209 Tension-type headache, unspecified, not intractable (principal); E86.0 Dehydration; E11.65 Type 2 diabetes mellitus with hyperglycemia; D64.9 Anemia, unspecified; K21.9 Gastro-esophageal reflux disease without esophagitis; I10 Essential (primary) hypertension; E78.5 Hyperlipidemia, unspecified; Z88.1 Allergy status to other antibiotic agents; Z79.899 Other long term (current) drug therapy; Z79.84 Long term (current) use of oral hypoglycemic drugs; Z20.822 Contact with and (suspected) exposure to COVID-19; Z79.4 Long term (current) use of insulin
CPT/HCPCS: 36415; 80053; 83735; 83880; 84100; 84484; 85025; 87636; 96361; 96374; 99284

== ENCOUNTER 2021-11-10 03:12 | Emergency (ER) | payer MEDICARE ==
[2021-11-10 03:27] VITALS: TEMP 98
[2021-11-10] MEDS ORDERED: KETOROLAC 15 MG/ML 1 ML VIAL IVP STA (04:37)
[2021-11-10] MEDS ORDERED: SODIUM CHLORIDE 0.9% 500 ML 500 ML IV STA (04:37)
--- NOTE | 2021-11-10 04:43 | ED ---
General Adult HPI - General Chief complaint: Nausea/Vomiting/Diarrhea Stated complaint: Body Aches Time Seen by Provider: 11/10/21 03:35 Source: patient, EMS Mode of arrival: EMS Limitations: no limitations - History of Present Illness Onset/Timin -: days(s) Location: abdomen Radiation: non-radiation Quality: other (Cramping) Consistency: intermittent Improves with: none Worsens with: none Associated Symptoms: denies other symptoms Treatments Prior to Arrival: none - Related Data Home Medications Medication Instructions Recorded Confirmed Atorvastatin [Lipitor] 80 mg PO HS 06/25/19 10/11/21 lisinopriL 40 mg PO DAILY 09/24/20 10/11/21 metFORMIN HCL [Glucophage] 500 mg PO DAILY 09/24/20 10/11/21 traZODone HCL 50 - 100 mg PO HS PRN 01/11/21 10/11/21 Ergocalciferol (Vitamin D2) 1,250 mcg PO TU 03/03/21 10/11/21 [Drisdol (50,000 Iu)] Esomeprazole Magnesium [NexIUM] 20 mg PO DAILY 03/28/21 10/11/21 Albuterol Inhaler [Ventolin Hfa 2 puff INHALATION RT-QID PRN 07/28/21 10/11/21 Inhaler] INSULIN ASPART (NovoLOG) [NovoLOG 18 unit SQ AC-TID 09/24/21 10/11/21 (formulary)] Insulin Detemir (Levemir) [Levemir] 20 unit SQ DAILY@0700 10/11/21 10/11/21 Previous Rx's Medication Instructions Recorded Fenofibrate [Lofibra] 160 mg PO DAILY #30 tab 03/23/19 Omeprazole [PriLOSEC] 40 mg PO DAILY #30 cap 10/15/21 Ibuprofen [Motrin] 600 mg PO Q8HR PRN #20 tab 10/17/21 Allergies Allergy/AdvReac Type Severity Reaction Status Date / Time levofloxacin [From Levaquin] Allergy Rash/Hives Verified 11/03/21 01:05 Review of Systems ROS Statement: Those systems with pertinent positive or pertinent negative responses have been documented in the HPI. ROS Other: All systems not noted in ROS Statement are negative. Constitutional: Denies: fever, chills Respiratory: Denies: cough, dyspnea Cardiovascular: Denies: chest pain, palpitations Gastrointestinal: Reports: abdominal pain. Denies: nausea, vomiting, diarrhea, constipation, melena, hematochezia Genitourinary: Denies: dysuria, hematuria Musculoskeletal: Denies: back pain Skin: Denies: rash Neurological: Denies: headache, weakness Past Medical History Past Medical History: Diabetes Mellitus, GERD/Reflux, Hyperlipidemia, Hypertens ion, Syncope Additional Past Medical History / Comment(s): Pt recently admitted to [facility] on 07/21/21 with uncontrolled IDDM and hyperkalemia. Other hx: Recurrent pancreatitis, hypertriglyceridemia, elevated lipase, IDDM type II, UTI, chronic low back pain, bulging discs, dental abscesses in past. History of Any Multi-Drug Resistant Organisms: None Reported Past Surgical History: Tubal Ligation Additional Past Surgical History / Comment(s): Age 7 had VSD repair Past Anesthesia/Blood Transfusion Reactions: No Reported Reaction Past Psychological History: No Psychological Hx Reported Smoking Status: Former smoker Past Alcohol Use History: None Reported Past Drug Use History: None Reported - Past Family History Mother Family Medical History: No Reported History Additional Family Medical History / Comment(s): Mother was healthy. She is , pt cannot recall cause of . Father Family Medical History: Pneumonia Additional Family Medical History / Comment(s): Father at the age of 67yrs from pneumonia General Exam Limitations: no limitations General appearance: alert, in no apparent distress Head exam: Present: atraumatic, normocephalic Eye exam: Present: normal appearance. Absent: scleral icterus, conjunctival injection Neck exam: Present: normal inspection Respiratory exam: Present: normal lung sounds bilaterally. Absent: respiratory distress, wheezes, rales, rhonchi, stridor Cardiovascular Exam: Present: regular rate, normal rhythm, normal heart sounds. Absent: systolic murmur, diastolic murmur, rubs, gallop GI/Abdominal exam: Present: soft. Absent: distended, tenderness, guarding, rebound, rigid, mass Extremities exam: Present: normal inspection, normal capillary refill. Absent: pedal edema, calf tenderness Back exam: Present: normal inspection. Absent: CVA tenderness (R), CVA tenderness (L) Neurological exam: Present: alert Skin exam: Present: warm, dry, intact, normal color. Absent: rash Course Vital Signs 11/10/21 03:23 Temperature 98.0 F Pulse Rate 68 Respiratory 15 Rate Blood Pressure 181/95 O2 Sat by Pulse 96 Oximetry Medical Decision Making - Lab Data Result diagrams: 11/10/21 06:22 11/10/21 06:22 Lab Results 11/10/21 11/10/21 Range/Units 06:22 06:22 WBC 8.9 (3.8-10.6) k/uL RBC 4.46 (3.80-5.40) m/uL Hgb 9.4 L (11.4-16.0) gm/dL Hct 32.9 L (34.0-46.0) % MCV 73.7 L (80.0-100.0) fL MCH 21.2 L (25.0-35.0) pg MCHC 28.7 L (31.0-37.0) g/dL RDW 18.2 H (11.5-15.5) % Plt Count 617 H (150-450) k/uL MPV 7.7 Neutrophils % 67 % Lymphocytes % 24 % Monocytes % 4 % Eosinophils % 3 % Basophils % 1 % Neutrophils # 6.0 (1.3-7.7) k/uL Lymphocytes # 2.2 (1.0-4.8) k/uL Monocytes # 0.4 (0-1.0) k/uL Eosinophils # 0.2 (0-0.7) k/uL Basophils # 0.1 (0-0.2) k/uL Hypochromasia Marked Anisocytosis Slight Microcytosis Moderate Sodium 137 (137-145) mmol/L Potassium 4.1 (3.5-5.1) mmol/L Chloride 101 (98-107) mmol/L Carbon Dioxide 25 (22-30) mmol/L Anion Gap 11 mmol/L BUN 11 (7-17) mg/dL Creatinine 0.74 (0.52-1.04) mg/dL Est GFR (CKD-EPI)AfAm >90 (>60 ml/min/1.73 sqM) Est GFR (CKD-EPI)NonAf >90 (>60 ml/min/1.73 sqM) Glucose 353 H (74-99) mg/dL Calcium 8.8 (8.4-10.2) mg/dL Total Bilirubin 0.3 (0.2-1.3) mg/dL AST 26 (14-36) U/L ALT 15 (4-34) U/L Alkaline Phosphatase 144 H (38-126) U/L Total Protein 6.6 (6.3-8.2) g/dL Albumin 3.8 (3.5-5.0) g/dL Amylase 33 (30-110) U/L Lipase 164 (23-300) U/L Disposition Clinical Impression: Hyperglycemia, Abdominal pain Disposition: HOME SELF-CARE Condition: Good Instructions (If sedation given, give patient instructions): Acute Nausea and Vomiting (ED) Is patient prescribed a controlled substance at d/c from ED?: No Referrals: Guillermo Cerda MD [Primary Care Provider] - 1-2 days
[2021-11-10 07:20] LABS: Anisocytosis Slight; Basophils # (A) 0.1 k/uL (0-0.2); Basophils % (A) 1 %; Eosinophils # (A) 0.2 k/uL (0-0.7); Eosinophils % (A) 3 %; HCT 32.9 % (34.0-46.0); HGB 9.4 gm/dL (11.4-16.0); Hypochromasia Marked; Lymphocytes # (A) 2.2 k/uL (1.0-4.8); Lymphocytes % (A) 24 %; MCH 21.2 pg (25.0-35.0); MCHC 28.7 g/dL (31.0-37.0); MCV 73.7 fL (80.0-100.0); Mean Platelet Volume 7.7; Microcytosis Moderate; Monocytes # (A) 0.4 k/uL (0-1.0); Monocytes % (A) 4 %; Neutrophils % (A) 67 %; Platelet Count 617 k/uL (150-450); RBC 4.46 m/uL (3.80-5.40); RDW 18.2 % (11.5-15.5); WBC 8.9 k/uL (3.8-10.6)
[2021-11-10 07:30] LABS: ALT 15 U/L (4-34); AST 26 U/L (14-36); African American GFR (CKD) >90 (>60 ml/min/1.73 sqM); Albumin 3.8 g/dL (3.5-5.0); Alkaline Phosphatase 144 U/L (38-126); Amylase 33 U/L (30-110); Anion Gap 11 mmol/L; Blood Urea Nitrogen 11 mg/dL (7-17); Calcium 8.8 mg/dL (8.4-10.2); Carbon Dioxide 25 mmol/L (22-30); Chloride 101 mmol/L (98-107); Glucose 353 mg/dL (74-99); Lipase 164 U/L (23-300); Non-African American GFR(CKD) >90 (>60 ml/min/1.73 sqM); Potassium 4.1 mmol/L (3.5-5.1); Sodium 137 mmol/L (137-145); Total Bilirubin 0.3 mg/dL (0.2-1.3); Total Protein 6.6 g/dL (6.3-8.2)
[2021-11-10] MEDS ORDERED: INSULIN REGULAR 100 UNIT/ML VIAL (IV) SQ STA (07:46)
[2021-11-10 08:28] VITALS: BP 187/96; PULSE 66; RESP 18
== END 2021-11-10 08:28 | disposition home or self-care (01) ==
LOC: EC 03:12
DX: E11.65 Type 2 diabetes mellitus with hyperglycemia (principal); R10.9 Unspecified abdominal pain; K21.9 Gastro-esophageal reflux disease without esophagitis; E78.5 Hyperlipidemia, unspecified; I10 Essential (primary) hypertension; Z87.891 Personal history of nicotine dependence; Z88.1 Allergy status to other antibiotic agents; Z79.4 Long term (current) use of insulin; Z79.899 Other long term (current) drug therapy
CPT/HCPCS: 36415; 80053; 82150; 83690; 85025; 99284; 96374; J1885

== ENCOUNTER 2021-11-15 12:23 | Emergency (ER) | payer MEDICARE ==
[2021-11-15 13:00] VITALS: BP 134/65; PULSE 75; RESP 20; TEMP 99.1
[2021-11-15] MEDS ORDERED: IBUPROFEN 800 MG TAB PO STA (17:14)
--- NOTE | 2021-11-15 17:55 | XR ---
EXAMINATION TYPE: XR KUB DATE OF EXAM: 11/15/2021 5:34 PM INDICATION: Patient age:Female; 51 years old; Reason for study: pain; COMPARISON: None. TECHNIQUE: One radiographic view of the abdomen was obtained. FINDINGS: The bowel gas pattern is nonspecific without dilated loops of small or large bowel. There i s no evidence for organomegaly or pneumoperitoneum. The osseous structures are intact. No abnormal calcifications are present. Fecal material and gas are demonstrated throughout the colon and rectum. Bilateral tubal ligation clips. IMPRESSION: Nonspecific bowel gas pattern without radiographic evidence for acute process.
--- NOTE | 2021-11-15 18:35 | ED ---
Fever HPI - General Chief Complaint: Fever Stated Complaint: malaise Time Seen by Provider: 11/15/21 16:58 Source: patient Limitations: no limitations - History of Present Illness Initial Comments: Patient is a 51-year-old female presents to the emergency department with a chief complaint of fever x 2 days. States she has not been taking her temperature at home but feels that she has chills. Taking Tylenol with last dose this morning. Reports body aches and dry cough. Also reports generalized abdominal pain. Denies nausea, vomiting, shortness of breath, chest pain, back pain, burning with urination. Denies recent sick contacts. Patient as well as our facility in present often for various concerns. - Related Data Home Medications Medication Instructions Recorded Confirmed Atorvastatin [Lipitor] 80 mg PO HS 06/25/19 10/11/21 lisinopriL 40 mg PO DAILY 09/24/20 10/11/21 metFORMIN HCL [Glucophage] 500 mg PO DAILY 09/24/20 10/11/21 traZODone HCL 50 - 100 mg PO HS PRN 01/11/21 10/11/21 Ergocalciferol (Vitamin D2) 1,250 mcg PO TU 03/03/21 10/11/21 [Drisdol (50,000 Iu)] Esomeprazole Magnesium [NexIUM] 20 mg PO DAILY 03/28/21 10/11/21 Albuterol Inhaler [Ventolin Hfa 2 puff INHALATION RT-QID PRN 07/28/21 10/11/21 Inhaler] INSULIN ASPART (NovoLOG) [NovoLOG 18 unit SQ AC-TID 09/24/21 10/11/21 (formulary)] Insulin Detemir (Levemir) [Levemir] 20 unit SQ DAILY@0700 10/11/21 10/11/21 Previous Rx's Medication Instructions Recorded Fenofibrate [Lofibra] 160 mg PO DAILY #30 tab 03/23/19 Omeprazole [PriLOSEC] 40 mg PO DAILY #30 cap 10/15/21 Ibuprofen [Motrin] 600 mg PO Q8HR PRN #20 tab 10/17/21 Allergies Allergy/AdvReac Type Severity Reaction Status Date / Time levofloxacin [From Levaquin] Allergy Rash/Hives Verified 11/15/21 13:00 Review of Systems ROS Statement: Those systems with pertinent positive or pertinent negative responses have been documented in the HPI. ROS Other: All systems not noted in ROS Statement are negative. Past Medical History Past Medical History: Diabetes Mellitus, GERD/Reflux, Hyperlipidemia, Hypertension, Syncope Additional Past Medical History / Comment(s): Pt recently admitted to [facility] on 07/21/21 with uncontrolled IDDM and hyperkalemia. Other hx: Recurrent pancreatitis, hypertriglyceridemia, elevated lipase, IDDM type II, UTI, chronic low back pain, bulging discs, dental abscesses in past. History of Any Multi-Drug Resistant Organisms: None Reported Past Surgical History: Tubal Ligation Additional Past Surgical History / Comment(s): Age 7 had VSD repair Past Anesthesia/Blood Transfusion Reactions: No Reported Reaction Past Psychological History: No Psychological Hx Reported Smoking Status: Former smoker Past Alcohol Use History: None Reported Past Drug Use History: None Reported - Past Family History Mother Family Medical History: No Reported History Additional Family Medical History / Comment(s): Mother was healthy. She is , pt cannot recall cause of . Father Family Medical History: Pneumonia Additional Family Medical History / Comment(s): Father at the age of 67yrs from pneumonia General Exam Limitations: no limitations General appearance: alert, in no apparent distress Head exam: Present: atraumatic, normocephalic, normal inspection Neck exam: Present: normal inspection. Absent: tenderness, meningismus, lymphadenopathy Respiratory exam: Present: normal lung sounds bilaterally. Absent: respiratory distress, wheezes, rales, rhonchi, stridor Cardiovascular Exam: Present: regular rate, normal rhythm, normal heart sounds. Absent: systolic murmur, diastolic murmur, rubs, gallop, clicks GI/Abdominal exam: Present: soft, normal bowel sounds. Absent: distended, tenderness, guarding, rebound, rigid Neurological exam: Present: alert, oriented X3, CN II-XII intact Psychiatric exam: Present: normal affect, normal mood Skin exam: Present: warm, dry, intact, normal color. Absent: rash Course Vital Signs 11/15/21 12:58 Temperature 99.1 F Pulse Rate 75 Respiratory 20 Rate Blood Pressure 134/65 O2 Sat by Pulse 98 Oximetry Medical Decision Making - Medical Decision Making This is a 51-year-old female who presents with reported fever, dry cough, and generalized abdominal pain. Thorough history and examination were performed. Patient is well-appearing. Afebrile. The abdomen is soft and nontender. COVID-19 and influenza A/B are not detected. KUB is negative for acute process. Patient will be discharged and instructed to follow-up with primary care provider. Dr. Nugent is my attending. - Lab Data Lab Results 11/15/21 11/15/21 Range/Units 17:28 17:41 Coronavirus (PCR) Not Detected (Not Detectd) Influenza Type A RNA Not Detected (Not Detectd) Influenza Type B (PCR) Not Detected (Not Detectd) Disposition Clinical Impression: Fever, Body aches, Abdominal pain Disposition: HOME SELF-CARE Condition: Good Instructions (If sedation given, give patient instructions): Upper Respiratory Infection (ED) Additional Instructions: Take Motrin or Tylenol as needed for fever. Follow-up with primary care provider in one to 2 days. Return to the emergency department experience new, concerning, or worsening symptoms. Is patient prescribed a controlled substance at d/c from ED?: No Referrals: Guillermo Cerda MD [Primary Care Provider] - 1-2 days Time of Disposition: 18:35
== END 2021-11-15 19:00 | disposition home or self-care (01) ==
LOC: EC 12:23
DX: R50.9 Fever, unspecified (principal); M79.10 Myalgia, unspecified site; R10.9 Unspecified abdominal pain; E11.9 Type 2 diabetes mellitus without complications; K21.9 Gastro-esophageal reflux disease without esophagitis; E78.5 Hyperlipidemia, unspecified; I10 Essential (primary) hypertension; Z87.891 Personal history of nicotine dependence; Z88.1 Allergy status to other antibiotic agents; Z79.899 Other long term (current) drug therapy; Z20.822 Contact with and (suspected) exposure to COVID-19
CPT/HCPCS: 74018; 87502; 87635; 99283

== ENCOUNTER 2021-11-26 13:24 | Inpatient (IN) | payer MEDICARE ==
[~2021-11-26 13:24] MED LIST: SODIUM CHLORIDE 0.9% 1,000 ML IV STA; SODIUM CHLORIDE 0.9% 500 ML 500 ML IV STA
[2021-11-26] MEDS ORDERED: INSULIN REGULAR 100 UNIT/ML VIAL (IV) IV ONE (13:32)
[2021-11-26 13:35] LABS: Glucose,Whole Blood >600 mg/dL (70-110)
[2021-11-26 13:49] LABS: Appearance,Urine Clear (Clear); Bilirubin,Urine Negative (Negative); Blood,Urine Negative (Negative); Color,Urine Colorless; Glucose,Urine (UA) 4+ (Negative); Ketones,Urine Negative (Negative); Leukocyte Esterase,Urine Negative (Negative); Nitrite,Urine Negative (Negative); PH, Urine 6.5 (5.0-8.0); Protein,Urine Trace (Negative); Specific Gravity,Urine 1.023 (1.001-1.035); Urobilinogen,Urine <2.0 mg/dL (<2.0)
[2021-11-26 14:00] LABS: AST 32 U/L (14-36); African American GFR (CKD) >90 (>60 ml/min/1.73 sqM); Albumin 3.6 g/dL (3.5-5.0); Alkaline Phosphatase 174 U/L (38-126); Anion Gap 16 mmol/L; Blood Urea Nitrogen 12 mg/dL (7-17); Calcium 8.5 mg/dL (8.4-10.2); Carbon Dioxide 22 mmol/L (22-30); Chloride 92 mmol/L (98-107); Lipase 313 U/L (23-300); Non-African American GFR(CKD) >90 (>60 ml/min/1.73 sqM); Potassium 3.9 mmol/L (3.5-5.1); Sodium 130 mmol/L (137-145); Total Bilirubin 0.2 mg/dL (0.2-1.3); Total Protein 6.4 g/dL (6.3-8.2)
[2021-11-26 14:07] LABS: Anisocytosis Slight; HCT 37.5 % (34.0-46.0); HGB 10.4 gm/dL (11.4-16.0); Hypochromasia Marked; MCH 21.6 pg (25.0-35.0); MCHC 27.9 g/dL (31.0-37.0); MCV 77.4 fL (80.0-100.0); Mean Platelet Volume 9.3; Microcytosis Slight; RBC 4.85 m/uL (3.80-5.40); RDW 18.2 % (11.5-15.5); WBC 10.3 k/uL (3.8-10.6)
[2021-11-26 14:11] LABS: Glucose 780 mg/dL (74-99)
[2021-11-26 14:12] LABS: ALT 23 U/L (4-34)
[2021-11-26] MEDS ORDERED: SODIUM CHLORIDE 0.9% 1,000 ML IV ONE (14:19)
[2021-11-26 14:43] LABS: Eosinophils # (M) 0.21 k/uL (0-0.7); Lymphocytes # (M) 1.03 k/uL (1.0-4.8); Monocytes # (M) 0.52 k/uL (0-1.0); Neutrophils # (M) 8.55 k/uL (1.3-7.7); Neutrophils % (M) 83 %; Nucleated Red Blood Cells 0 /100 WBC (0-0); Total Cells Counted 100
[2021-11-26] MEDS ORDERED: DEXTROSE 50% SYRINGE 50 ML IVP PRN ×2 (16:03)
[2021-11-26] MEDS ORDERED: NALOXONE 0.4 MG/ML 1 ML VIAL IV PRN (16:11)
[2021-11-26] MEDS ORDERED: ONDANSETRON 4 MG/2 ML VIAL IVP PRN (16:11)
--- NOTE | 2021-11-26 16:11 | ED ---
General Adult HPI - General Chief complaint: Recheck/Abnormal Lab/Rx Stated complaint: Weakness Time Seen by Provider: 11/26/21 13:24 Source: patient, EMS, RN notes reviewed Mode of arrival: EMS Limitations: no limitations - History of Present Illness Initial comments: 51-year-old female presents emergency from chief complaint of hyperglycemia. Patient's meter read high at home. EMS reports of blood sugar read greater than 600. Patient states that she has run out of insulin. Patient denies any fevers chills vomiting she does complain of mild dysuria has no increasing abdominal pain states she has chronic abdominal pain but not worsened usual. Denies any flank pain. Denies any cough or URI symptoms. - Related Data Home Medications Medication Instructions Recorded Confirmed Atorvastatin [Lipitor] 80 mg PO HS 06/25/19 10/11/21 lisinopriL 40 mg PO DAILY 09/24/20 10/11/21 metFORMIN HCL [Glucophage] 500 mg PO DAILY 09/24/20 10/11/21 traZODone HCL 50 - 100 mg PO HS PRN 01/11/21 10/11/21 Ergocalciferol (Vitamin D2) 1,250 mcg PO TU 03/03/21 10/11/21 [Drisdol (50,000 Iu)] Esomeprazole Magnesium [NexIUM] 20 mg PO DAILY 03/28/21 10/11/21 Albuterol Inhaler [Ventolin Hfa 2 puff INHALATION RT-QID PRN 07/28/21 10/11/21 Inhaler] INSULIN ASPART (NovoLOG) [NovoLOG 18 unit SQ AC-TID 09/24/21 10/11/21 (formulary)] Insulin Detemir (Levemir) [Levemir] 20 unit SQ DAILY@0700 10/11/21 10/11/21 Previous Rx's Medication Instructions Recorded Fenofibrate [Lofibra] 160 mg PO DAILY #30 tab 03/23/19 Omeprazole [PriLOSEC] 40 mg PO DAILY #30 cap 10/15/21 Ibuprofen [Motrin] 600 mg PO Q8HR PRN #20 tab 10/17/21 Allergies Allergy/AdvReac Type Severity Reaction Status Date / Time levofloxacin [From Levaquin] Allergy Rash/Hives Verified 11/26/21 13:33 Review of Systems ROS Statement: Those systems with pertinent positive or pertinent negative responses have been documented in the HPI. ROS Other: All systems not noted in ROS Statement are negative. Past Medical History Past Medical History: Diabetes Mellitus, GERD/Reflux, Hyperlipidemia, Hypertension, Syncope Additional Past Medical History / Comment(s): Pt recently admitted to [facility] on 07/21/21 with uncontrolled IDDM and hyperkalemia. Other hx: Recurrent pancreatitis, hypertriglyceridemia, elevated lipase, IDDM type II, UTI, chronic low back pain, bulging discs, dental abscesses in past. History of Any Multi-Drug Resistant Organisms: None Reported Past Surgical History: Tubal Ligation Additional Past Surgical History / Comment(s): Age 7 had VSD repair Past Anesthesia/Blood Transfusion Reactions: No Reported Reaction Past Psychological History: No Psychological Hx Reported Smoking Status: Former smoker Past Alcohol Use History: None Reported Past Drug Use History: None Reported - Past Family History Mother Family Medical History: No Reported History Additional Family Medical History / Comment(s): Mother was healthy. She is , pt cannot recall cause of . Father Family Medical History: Pneumonia Additional Family Medical History / Comment(s): Father at the age of 67yrs from pneumonia General Exam Limitations: no limitations General appearance: alert, in no apparent distress Head exam: Present: atraumatic, normocephalic, normal inspection Eye exam: Present: normal appearance, PERRL, EOMI. Absent: scleral icterus, conjunctival injection, periorbital swelling ENT exam: Present: normal exam, mucous membranes moist Neck exam: Present: normal inspection, full ROM. Absent: tenderness, me ningismus, lymphadenopathy Respiratory exam: Present: normal lung sounds bilaterally. Absent: respiratory distress, wheezes, rales, rhonchi, stridor Cardiovascular Exam: Present: regular rate, normal rhythm, normal heart sounds. Absent: systolic murmur, diastolic murmur, rubs, gallop, clicks Course Vital Signs 11/26/21 13:28 Temperature 98.2 F Pulse Rate 73 Respiratory 18 Rate Blood Pressure 146/85 O2 Sat by Pulse 97 Oximetry Medical Decision Making - Medical Decision Making 51-year-old female presented from for significant hyperglycemia blood sugar 780 with a lactic at 7.8. Patient was given initial fluid bolus and which revealed lactic was performed and shows some improvement. Patiently admitted for unc ontrolled diabetes, hyperglycemia, lactic acidosis. - Lab Data Result diagrams: 11/26/21 13:44 11/26/21 13:44 Lab Results 11/26/21 11/26/21 11/26/21 Range/Units 13:28 13:44 13:44 WBC 10.3 (3.8-10.6) k/uL RBC 4.85 (3.80-5.40) m/uL Hgb 10.4 L (11.4-16.0) gm/dL Hct 37.5 (34.0-46.0) % MCV 77.4 L (80.0-100.0) fL MCH 21.6 L (25.0-35.0) pg MCHC 27.9 L (31.0-37.0) g/dL RDW 18.2 H (11.5-15.5) % Plt Count (150-450) k/uL MPV 9.3 Neutrophils % (Manual) 83 % Lymphocytes % (Manual) 10 % Monocytes % (Manual) 5 % Eosinophils % (Manual) 2 % Neutrophils # (Manual) 8.55 H (1.3-7.7) k/uL Lymphocytes # (Manual) 1.03 (1.0-4.8) k/uL Monocytes # (Manual) 0.52 (0-1.0) k/uL Eosinophils # (Manual) 0.21 (0-0.7) k/uL Nucleated RBCs 0 (0-0) /100 WBC Manual Slide Review Performed Hypochromasia Marked Anisocytosis Slight Microcytosis Slight Sodium 130 L (137-145) mmol/L Potassium 3.9 (3.5-5.1) mmol/L Chloride 92 L (98-107) mmol/L Carbon Dioxide 22 (22-30) mmol/L Anion Gap 16 mmol/L BUN 12 (7-17) mg/dL Creatinine 0.73 (0.52-1.04) mg/dL Est GFR (CKD-EPI)AfAm >90 (>60 ml/min/1.73 sqM) Est GFR (CKD-EPI)NonAf >90 (>60 ml/min/1.73 sqM) Glucose 780 H* (74-99) mg/dL POC Glucose (mg/dL) >600 H (70-110) mg/dL POC Glu Quotation Checker ID Chantel Soto Plasma Lactic Acid [place]on (0.7-2.0) mmol/L Calcium 8.5 (8.4-10.2) mg/dL Total Bilirubin 0.2 (0.2-1.3) mg/dL AST 32 (14-36) U/L ALT 23 (4-34) U/L Alkaline Phosphatase 174 H (38-126) U/L Total Protein 6.4 (6.3-8.2) g/dL Albumin 3.6 (3.5-5.0) g/dL Lipase 313 H (23-300) U/L Urine Color Urine Appearance (Clear) Urine pH (5.0-8.0) Ur Specific [place] (1.001-1.035) Urine Protein (Negative) Urine Glucose (UA) (Negative) Urine Ketones (Negative) Urine Blood (Negative) Urine Nitrite (Negative) Urine Bilirubin (Negative) Urine Urobilinogen (<2.0) mg/dL Ur Leukocyte Esterase (Negative) Acetone, Qual Negative (Negative) 11/26/21 11/26/21 11/26/21 Range/Units 13:44 13:45 15:34 WBC (3.8-10.6) k/uL RBC (3.80-5.40) m/uL Hgb (11.4-16.0) gm/dL Hct (34.0-46.0) % MCV (80.0-100.0) fL MCH (25.0-35.0) pg MCHC (31.0-37.0) g/dL RDW (11.5-15.5) % Plt Count (150-450) k/uL MPV Neutrophils % (Manual) % Lymphocytes % (Manual) % Monocytes % (Manual) % Eosinophils % (Manual) % Neutrophils # (Manual) (1.3-7.7) k/uL Lymphocytes # (Manual) (1.0-4.8) k/uL Monocytes # (Manual) (0-1.0) k/uL Eosinophils # (Manual) (0-0.7) k/uL Nucleated RBCs (0-0) /100 WBC Manual Slide Review Hypochromasia Anisocytosis Microcytosis Sodium (137-145) mmol/L Potassium (3.5-5.1) mmol/L Chloride (98-107) mmol/L Carbon Dioxide (22-30) mmol/L Anion Gap mmol/L BUN (7-17) mg/dL Creatinine (0.52-1.04) mg/dL Est GFR (CKD-EPI)AfAm (>60 ml/min/1.73 sqM) Est GFR (CKD-EPI)NonAf (>60 ml/min/1.73 sqM) Glucose (74-99) mg/dL POC Glucose (mg/dL) (70-110) mg/dL POC Glu Quotation Checker ID Plasma Lactic Acid [place]on 7.8 H* 4.6 H* (0.7-2.0) mmol/L Calcium (8.4-10.2) mg/dL Total Bilirubin (0.2-1.3) mg/dL AST (14-36) U/L ALT (4-34) U/L Alkaline Phosphatase (38-126) U/L Total Protein (6.3-8.2) g/dL Albumin (3.5-5.0) g/dL Lipase (23-300) U/L Urine Color Colorless Urine Appearance Clear (Clear) Urine pH 6.5 (5.0-8.0) Ur Specific [place] 1.023 (1.001-1.035) Urine Protein Trace H (Negative) Urine Glucose (UA) 4+ H (Negative) Urine Ketones Negative (Negative) Urine Blood Negative (Negative) Urine Nitrite Negative (Negative) Urine Bilirubin Negative (Negative) Urine Urobilinogen <2.0 (<2.0) mg/dL Ur Leukocyte Esterase Negative (Negative) Acetone, Qual (Negative) Disposition Clinical Impression: Lactic acidosis, Hyperglycemia Disposition: ADMITTED IP TO THIS HOSP Condition: Fair Referrals: Guillermo Cerda MD [Primary Care Provider] - 1-2 days Time of Disposition: 16:11
[2021-11-26] MEDS ORDERED: IBUPROFEN 600 MG TAB PO PRN (16:12)
[2021-11-26 16:45] LABS: Glucose,Whole Blood 494 mg/dL (70-110)
[2021-11-26] MEDS: INSULIN REGULAR 100 UNIT in SODIUM CHLORIDE 0.9% 100 ML IV SCH (17:25)
[2021-11-26] MEDS: SODIUM CHLORIDE 0.9% 1,000 ML IV SCH (17:32)
[2021-11-26 17:36] LABS: Glucose,Whole Blood 509 mg/dL (70-110)
[2021-11-26] MEDS: ACETAMINOPHEN TAB 325 MG TAB PO PRN (17:36)
[2021-11-26 18:29] LABS: Glucose,Whole Blood 380 mg/dL (70-110)
[2021-11-26 19:05] LABS: Glucose,Whole Blood 335 mg/dL (70-110)
[2021-11-26] MEDS ORDERED: traZODone HCL 50 MG TAB PO PRN (19:30)
[2021-11-26 19:59] LABS: Glucose,Whole Blood 352 mg/dL (70-110)
[2021-11-26] MEDS: ATORVASTATIN 80 MG TAB PO SCH (20:30)
[2021-11-26] MEDS: HYDROmorphone 1 MG/ML 1 ML SYRINGE IVP PRN (20:30)
[2021-11-26 21:02] LABS: Glucose,Whole Blood 291 mg/dL (70-110)
[2021-11-26 22:04] LABS: Glucose,Whole Blood 191 mg/dL (70-110)
[2021-11-26 23:01] LABS: Glucose,Whole Blood 192 mg/dL (70-110)
[2021-11-27 00:01] LABS: Glucose,Whole Blood 109 mg/dL (70-110)
[2021-11-27 01:01] LABS: Glucose,Whole Blood 147 mg/dL (70-110)
[2021-11-27 02:02] LABS: Glucose,Whole Blood 195 mg/dL (70-110)
[2021-11-27] MEDS: HYDROmorphone 1 MG/ML 1 ML SYRINGE IVP PRN ×4 (02:10→21:37)
[2021-11-27] MEDS: SODIUM CHLORIDE 0.9% 1,000 ML IV SCH ×3 (02:13→19:57)
[2021-11-27 03:07] LABS: Glucose,Whole Blood 139 mg/dL (70-110)
[2021-11-27] MEDS: INSULIN REGULAR 100 UNIT in SODIUM CHLORIDE 0.9% 100 ML IV SCH ×2 (03:17→11:58)
[2021-11-27 03:59] LABS: Glucose,Whole Blood 156 mg/dL (70-110)
[2021-11-27 05:01] LABS: Glucose,Whole Blood 178 mg/dL (70-110)
[2021-11-27 05:58] LABS: Glucose,Whole Blood 184 mg/dL (70-110)
[2021-11-27] MEDS: PANTOPRAZOLE 40 MG TABLET PO SCH (06:54)
[2021-11-27 07:04] LABS: Glucose,Whole Blood 183 mg/dL (70-110)
[2021-11-27] MEDS: ALBUTEROL NEBULIZED 2.5 MG/3 ML INHALATION PRN ×2 (07:36→20:26)
--- NOTE | 2021-11-27 07:59 | US ---
EXAMINATION TYPE: US gallbladder DATE OF EXAM: 11/27/2021 COMPARISON: US 2021, CT 2020 CLINICAL HISTORY: abdominal pain. Patient not NPO, ate right before exam TECHNIQUE: Multiple sonographic images of the right upper quadrant are obtained. Exam done portable FINDINGS: EXAM MEASUREMENTS: Liver Length: 19.3 cm Gallbladder Wall: 0.2 cm CBD: 0.4 cm Right Kidney: 11.0 x 5.4 x 4.7 cm Pancreas: obscured by overlying midline bowel gas Liver: enlarged, attenuating, increased echogenicity, decreased visualization of vessels . No gross evidence of mass within limitations of exam. Gallbladder: limited visualization, borderline hydropic. No evidence of wall thickening, pericholecy stic fluid, or shadowing gallstones. Evidence for sonographic Jurado's sign: no CBD: visualized portions wnl, limited by overlying bowel gas Right Kidney: wnl IMPRESSION: 1. Limited examination with mildly prominent gallbladder without ultrasound evidence for acute francis cystitis. 2. Hepatic steatosis.
[2021-11-27 08:11] LABS: Glucose,Whole Blood 222 mg/dL (70-110)
[2021-11-27] MEDS: lisinopriL 20 MG TAB PO SCH (08:37)
[2021-11-27] MEDS: FENOFIBRATE 160 MG TAB PO SCH (08:37)
[2021-11-27 09:00] LABS: Glucose,Whole Blood 293 mg/dL (70-110)
[2021-11-27 09:56] LABS: HDL Cholesterol 21.3 mg/dL (40.00-60.00)
[2021-11-27 10:02] LABS: Glucose,Whole Blood 232 mg/dL (70-110)
[2021-11-27 10:06] LABS: Chol/HDL Ratio 9.3 Ratio; LDL Cholesterol,Direct Reflex 97.1 mg/dL (0.00-129.00)
[2021-11-27 11:02] LABS: Glucose,Whole Blood 272 mg/dL (70-110)
[2021-11-27 11:55] LABS: Glucose,Whole Blood 262 mg/dL (70-110)
[2021-11-27 13:04] LABS: Glucose,Whole Blood 274 mg/dL (70-110)
[2021-11-27 14:02] LABS: Glucose,Whole Blood 300 mg/dL (70-110)
[2021-11-27 14:21] VITALS: BMI 44.3
[2021-11-27 15:16] LABS: Glucose,Whole Blood 298 mg/dL (70-110)
[2021-11-27 16:30] LABS: Glucose,Whole Blood 203 mg/dL (70-110)
[2021-11-27 17:10] LABS: Glucose,Whole Blood 217 mg/dL (70-110)
[2021-11-27] MEDS: INSULIN ASPART (NovoLOG) 100 UNIT/ML VIAL SQ SCH (17:54)
[2021-11-27] MEDS: ATORVASTATIN 80 MG TAB PO SCH (19:57)
[2021-11-27] MEDS: ACETAMINOPHEN TAB 325 MG TAB PO PRN (19:58)
[2021-11-27 20:05] LABS: Glucose,Whole Blood 363 mg/dL (70-110)
[2021-11-28] MEDS: SODIUM CHLORIDE 0.9% 1,000 ML IV SCH ×3 (04:23→23:23)
[2021-11-28] MEDS: HYDROmorphone 1 MG/ML 1 ML SYRINGE IVP PRN ×4 (04:23→23:23)
[2021-11-28 06:07] LABS: Glucose,Whole Blood 269 mg/dL (70-110)
[2021-11-28] MEDS: INSULIN ASPART (NovoLOG) 100 UNIT/ML VIAL SQ SCH ×3 (06:41→16:46)
[2021-11-28] MEDS: PANTOPRAZOLE 40 MG TABLET PO SCH (06:41)
[2021-11-28] MEDS ORDERED: INSULIN DETEMIR (LEVEMIR) 100 UNIT/ML SYR SQ SCH ×2 (07:00→21:00)
--- NOTE | 2021-11-28 08:03 | PN ---
PROGRESS NOTE CHIEF COMPLAINT: Uncontrolled diabetes. HISTORY OF PRESENT ILLNESS: This lady's sugars are coming down and her drip will soon be stopped, and she will be placed on basal bolus program. REVIEW OF SYSTEMS: She denies any fever. No chills, chest pain, shortness of breath, vomiting, etc. Past medical history, family history, and personal and social histories are all unchanged. PHYSICAL EXAMINATION: VITAL SIGNS: Normal. CHEST: Clear. CARDIAC: Demonstrates a slower tachycardia. ABDOMEN: Protuberant, soft, and nontender. EXTREMITIES: Normal. IMPRESSION: 1. Uncontrolled diabetes mellitus. 2. History of hypertriglyceridemia. 3. History of pancreatitis. PLAN: Continue with insulin management until her sugars are under good control. MMODL / IJN: [id number] /
--- NOTE | 2021-11-28 08:10 | HP ---
HISTORY AND PHYSICAL CHIEF COMPLAINT: Uncontrolled diabetes. HISTORY OF PRESENT ILLNESS: This is another recent admission for this 51-year-old obese white female, who has problems managing her diabetes, largely because she is not compliant in keeping office appointments or taking her medications. She came to emergency room with a blood sugar of over 600. She was not having any abdominal pain. She frequently has episodes of chronic relapsing pancreatitis related in combination to her diabetes and hypertriglyceridemia. She has been having some vomiting, but no fever, no chills, etc. REVIEW OF SYSTEMS: She denies any other complaints. Past medical history, family history, and personal and social histories are all otherwise unremarkable and unchanged from her recent admitting and discharge summaries. She was last seen in the office on October 31 and stated that she did take her medications properly and checked her sugars, but at that time her blood sugar was 325. Past medical history, family history, social history reveal that she is on: 1. NovoLog. 2. Levemir. 3. Albuterol. 4. Hydroxyzine. 5. Trazodone. 6. Lisinopril. 7. Atorvastatin. 8. Fenofibrate. 9. Nexium. 10.Metformin. She does smoke. PHYSICAL EXAMINATION: VITAL SIGNS: Blood pressure was 136/78, pulse of 96, and respirations of 35, and she is afebrile. GENERAL: She appeared to be obese. She was dehydrated. HEAD, EARS, EYES, NOSE, MOUTH AND THROAT: Normal except for dry mucous membranes. NECK: Neck veins are not distended. Neck was supple. CHEST: Clear. CARDIAC: Demonstrated sinus tachycardia. ABDOMEN: Soft and protuberant. It was nontender. There are no masses. EXTREMITIES: Normal. IMPRESSION: 1. Uncontrolled type 2 diabetes mellitus due to noncompliance. 2. History of hypertension. 3. History of hyperlipidemia. 4. History of pancreatitis. 5. Depression. PLAN: 1. Bedrest. 2. IV fluids. 3. DKA protocol until her blood sugars are under control. MMODL / IJN: [id number] /
[2021-11-28] MEDS: FENOFIBRATE 160 MG TAB PO SCH (08:34)
[2021-11-28] MEDS: lisinopriL 20 MG TAB PO SCH (08:34)
[2021-11-28] MEDS: metFORMIN 500 MG TAB PO SCH (08:34)
[2021-11-28] MEDS ORDERED: ESOMEPRAZOLE MAGNESIUM 20 MG PO SCH (09:00)
[2021-11-28 11:40] LABS: Glucose,Whole Blood 265 mg/dL (70-110)
[2021-11-28 16:47] LABS: Glucose,Whole Blood 202 mg/dL (70-110)
[2021-11-28 20:09] LABS: Glucose,Whole Blood 338 mg/dL (70-110)
[2021-11-28] MEDS: ATORVASTATIN 80 MG TAB PO SCH (20:38)
--- NOTE | 2021-11-29 06:07 | PN ---
PROGRESS NOTE CHIEF COMPLAINT: Uncontrolled diabetes and hypertriglyceridemia. HISTORY OF PRESENT ILLNESS: This lady is not having any abdominal pain. She is not nauseated. Blood sugars are still elevated and management will be increased. Her activity will be encouraged. PHYSICAL EXAMINATION: Chest is clear and her cardiac exam is normal. Abdomen is protuberant, soft and nontender. There is no tenderness over the epigastrium. IMPRESSION: 1. Uncontrolled diabetes. 2. Hypertriglyceridemia. 3. History of pancreatitis. PLAN: Continue to monitor blood sugars and increase program and probably home tomorrow. MMODL / IJN: [id number] /
[2021-11-29 06:08] LABS: Glucose,Whole Blood 244 mg/dL (70-110)
[2021-11-29] MEDS: SODIUM CHLORIDE 0.9% 1,000 ML IV SCH ×4 (06:18→20:38)
[2021-11-29] MEDS: PANTOPRAZOLE 40 MG TABLET PO SCH (06:18)
[2021-11-29] MEDS: HYDROmorphone 1 MG/ML 1 ML SYRINGE IVP PRN ×2 (06:18→12:14)
[2021-11-29] MEDS: INSULIN ASPART (NovoLOG) 100 UNIT/ML VIAL SQ SCH ×3 (06:18→16:56)
[2021-11-29] MEDS: lisinopriL 20 MG TAB PO SCH (09:08)
[2021-11-29] MEDS: FENOFIBRATE 160 MG TAB PO SCH (09:08)
[2021-11-29] MEDS: metFORMIN 500 MG TAB PO SCH (09:08)
[2021-11-29 11:55] LABS: Glucose,Whole Blood 309 mg/dL (70-110)
[2021-11-29 16:45] LABS: Glucose,Whole Blood 211 mg/dL (70-110)
[2021-11-29] MEDS: hydrALAZINE HCL 25 MG TAB PO SCH ×2 (16:56→20:37)
[2021-11-29] MEDS: traMADol 50 MG TAB PO PRN (17:40)
[2021-11-29 20:05] LABS: Glucose,Whole Blood 261 mg/dL (70-110)
[2021-11-29] MEDS: ATORVASTATIN 80 MG TAB PO SCH (20:37)
[2021-11-29] MEDS ORDERED: INSULIN DETEMIR (LEVEMIR) 100 UNIT/ML SYR SQ SCH (21:00)
[2021-11-30] MEDS: traMADol 50 MG TAB PO PRN ×4 (01:37→23:51)
[2021-11-30 06:10] LABS: Glucose,Whole Blood 338 mg/dL (70-110)
[2021-11-30 07:08] LABS: Glucose,Whole Blood 252 mg/dL (70-110)
[2021-11-30] MEDS: INSULIN ASPART (NovoLOG) 100 UNIT/ML VIAL SQ SCH ×3 (07:18→17:05)
[2021-11-30] MEDS: PANTOPRAZOLE 40 MG TABLET PO SCH (07:18)
[2021-11-30] MEDS: SODIUM CHLORIDE 0.9% 1,000 ML IV SCH ×3 (08:52→21:33)
[2021-11-30] MEDS: metFORMIN 500 MG TAB PO SCH (09:06)
[2021-11-30] MEDS: lisinopriL 20 MG TAB PO SCH (09:06)
[2021-11-30] MEDS: FENOFIBRATE 160 MG TAB PO SCH (09:06)
[2021-11-30] MEDS: hydrALAZINE HCL 25 MG TAB PO SCH ×4 (09:06→23:52)
[2021-11-30 12:20] LABS: Glucose,Whole Blood 224 mg/dL (70-110)
--- NOTE | 2021-11-30 15:09 | CDI ---
Documentation Clarification Form Date: 11/30/2021 02:58:47 PM From: Cassie GarciaNathCONCEPCION araya, CCDS Admit Date: 11/26/2021 04:51:00 PM Patient Name: Dayna Le Visit Number: [id number] Discharge Date: ATTENTION: The Clinical Documentation Specialists (CDI) and [facility] Coding Staff appreciate your assistance in clarifying documentation. Please respond to the clarification below the line at the bottom and electronically sign. The CDI & [facility] Coding staff will review the response and follow-up if needed. Please note: Queries are made part of the Legal Health Record. If you have any questions, please contact the author of this message via ITS. Dr. Guillermo Cerda: Uncontrolled Diabetes Mellitus is documented in the 11/26 ED Note, the 11/27 H/P and in subsequent Attending Physician Progress Notes. Hyperglycemia is documented in the 11/26 ED Note but not in subsequent physician notes. Additional specificity regarding the Diabetes diagnosis is requested. History/Risk Factors per the 11/27 H/P: IDDM II, Noncompliant with office appointments and medications, Chronic relapsing pancreatitis, Hypertriglyceridemia, Hypertension, Hyperlipidemia and Depression. Clinical Indicators: Presented to the ED on 11/26 via EMS with Hyperglycemia, meter reading high at home. Per EMS: blood sugar >600. Admit with Lactic Acidosis and Hyperglycemia. 11/26 VS: T 98.2, P 73, R 18, BP 146/85, PO 97 RA, BMI: 44.3 11/26 LAB: Hgb 10.4, Neut 8.55; Na 130, Chloride 92, Glucose 780, Lactic Acid 4.6, 3.5, 2.2; Alkaline Phos 174. UA: Clear, Trace protein, 4+ Glucose Acetone: negative Treatment 11/26: Blood glucose monitoring, Hypoglycemia Protocol, IV Na Chl 1,000 mls @ 999 mls/hr q1H x2, IV Na Chl 500 mls @ 999 mls/hr q31M, IV Humulin 10 units x1, IV Dextrose 25 ml per protocol/prn, IV Zofran 4 mg q8H/prn. Please clarify the type of Diabetes, if known: [ ] Diabetes Type 2 with Hyperglycemia [ ] Diabetes Type 2 with other condition, please specify: [ ] Other, please specify [ ] Unable to Determine (Template Last Revised: June 2020) MTDD
[2021-11-30 17:04] LABS: Glucose,Whole Blood 241 mg/dL (70-110)
[2021-11-30] MEDS: ATORVASTATIN 80 MG TAB PO SCH (19:50)
[2021-11-30 20:06] LABS: Glucose,Whole Blood 238 mg/dL (70-110)
[2021-12-01 00:09] VITALS: RESP 18
[2021-12-01] MEDS: SODIUM CHLORIDE 0.9% 1,000 ML IV SCH ×2 (00:23→11:49)
--- NOTE | 2021-12-01 06:21 | PN ---
PROGRESS NOTE CHIEF COMPLAINT: Uncontrolled diabetes. HISTORY OF PRESENT ILLNESS: This lady's sugars are still elevated. Her insulin will be increased again. PHYSICAL EXAMINATION: CHEST: Clear. CARDIAC: Normal. ABDOMEN: Protuberant, soft, and nontender. IMPRESSION: 1. Uncontrolled diabetes. 2. Uncontrolled hypertension. PLAN: Increase Lantus to 60 units and reassess tomorrow for probable discharge. MMODL / IJN: [id number] /
--- NOTE | 2021-12-01 06:21 | PN ---
PROGRESS NOTE CHIEF COMPLAINT: Uncontrolled diabetes. HISTORY OF PRESENT ILLNESS: This lady's blood sugar is still high as is her blood pressure. PHYSICAL EXAMINATION: CHEST: Clear. CARDIAC: Normal. ABDOMEN: Protuberant, soft, and nontender. IMPRESSION: 1. Uncontrolled diabetes. 2. Uncontrolled hypertension. PLAN: Increase insulin management and continue to monitor blood sugars and blood pressure for at least another day. MMODL / IJN: [id number] /
[2021-12-01] MEDS: PANTOPRAZOLE 40 MG TABLET PO SCH (06:27)
[2021-12-01] MEDS ORDERED: INSULIN DETEMIR (LEVEMIR) 100 UNIT/ML SYR SQ SCH (07:00)
[2021-12-01 07:46] LABS: Glucose,Whole Blood 270 mg/dL (70-110)
[2021-12-01] MEDS: traMADol 50 MG TAB PO PRN ×2 (08:03→12:23)
[2021-12-01] MEDS: FENOFIBRATE 160 MG TAB PO SCH (08:03)
[2021-12-01] MEDS: lisinopriL 20 MG TAB PO SCH (08:03)
[2021-12-01] MEDS: metFORMIN 500 MG TAB PO SCH (08:03)
[2021-12-01] MEDS: INSULIN ASPART (NovoLOG) 100 UNIT/ML VIAL SQ SCH ×3 (08:04→16:55)
[2021-12-01] MEDS: hydrALAZINE HCL 25 MG TAB PO SCH ×2 (08:05→12:24)
[2021-12-01 11:56] LABS: Glucose,Whole Blood 279 mg/dL (70-110)
[2021-12-01 16:08] VITALS: BP 115/68; PULSE 68; TEMP 98.5
[2021-12-01 16:43] LABS: Glucose,Whole Blood 202 mg/dL (70-110)
[2021-12-02] MEDS ORDERED: INSULIN DETEMIR (LEVEMIR) 100 UNIT/ML SYR SQ SCH (07:00)
--- NOTE | 2021-12-09 19:55 | DS ---
DISCHARGE SUMMARY CHIEF COMPLAINT: Uncontrolled diabetes. HISTORY OF PRESENT ILLNESS AND PHYSICAL EXAMINATION: Details of this lady's history and physical can be found in the initial workup. LABORATORY STUDIES: While she was in the hospital, she had laboratory studies, details of which can be found in the laboratory section of her chart. COURSE IN THE HOSPITAL: After admission, she was placed on bedrest, started intravenous fluids, and started on intravenous insulin. Her blood sugars started to come down, but remained relatively high despite reinstituting her home insulin management and basal bolus insulin. The dosages were gradually stepped up and finally, her blood sugar are coming down below 200. It was felt that she could be discharged and she will follow up in the office. She is very noncompliant and she probably will not show up for followup and she probably will not maintain an appropriate . FINAL DIAGNOSES: 1. Uncontrolled insulin-dependent diabetes mellitus. 2. Hypertriglyceridemia. 3. History of pancreatitis. 4. Obesity. 5. Depression. OPERATIONS: None. CONSULTATIONS: None. She is improved. JUAN / GOOD: [id number] /
--- NOTE | 2021-12-22 06:55 | MISC ---
MISCELLANOUS REPORT Diabetes with hypoglycemia. MMODL / IJN: [id number] /
--- NOTE | 2021-12-26 09:05 | CDI ---
Documentation Clarification Form Date: 11/30/2021 02:58:00 PM From: Cassie GarciaNathCONCEPCION araya, CCDS Admit Date: 11/26/2021 04:51:00 PM Patient Name: Dayna Le Visit Number: [id number] Discharge Date: 12/01/2021 06:48:00 PM ATTENTION: The Clinical Documentation Specialists (CDI) and [facility] Coding Staff appreciate your assistance in clarifying documentation. Please respond to the clarification below the line at the bottom and electronically sign. The CDI & [facility] Coding staff will review the response and follow-up if needed. Please note: Queries are made part of the Legal Health Record. If you have any questions, please contact the author of this message via ITS. Dr. Guillermo Cerda: Uncontrolled Diabetes Mellitus is documented in the 11/26 ED Note, the 11/27 H/P and in subsequent Attending Physician Progress Notes. Hyperglycemia is documented in the 11/26 ED Note but not in subsequent physician notes. Additional specificity regarding the Diabetes diagnosis is requested. History/Risk Factors per the 11/27 H/P: IDDM II, Noncompliant with office appointments and medications, Chronic relapsing pancreatitis, Hypertriglyceridemia, Hypertension, Hyperlipidemia and Depression. Clinical Indicators: Presented to the ED on 11/26 via EMS with Hyperglycemia, meter reading high at home. Per EMS: blood sugar >600. Admit with Lactic Acidosis and Hyperglycemia. 11/26 VS: T 98.2, P 73, R 18, BP 146/85, PO 97 RA, BMI: 44.3 11/26 LAB: Hgb 10.4, Neut 8.55; Na 130, Chloride 92, Glucose 780, Lactic Acid 4.6, 3.5, 2.2; Alkaline Phos 174. UA: Clear, Trace protein, 4+ Glucose Acetone: negative Treatment 11/26: Blood glucose monitoring, Hypoglycemia Protocol, IV Na Chl 1,000 mls @ 999 mls/hr q1H x2, IV Na Chl 500 mls @ 999 mls/hr q31M, IV Humulin 10 units x1, IV Dextrose 25 ml per protocol/prn, IV Zofran 4 mg q8H/prn. Please clarify the type of Diabetes, if known: [ ] Diabetes Type 2 with Hyperglycemia [ ] Diabetes Type 2 with other condition, please specify: [ ] Other, please specify [ ] Unable to Determine (Template Last Revised: June 2020) MTDD
--- NOTE | 2021-12-27 04:41 | MISC ---
MISCELLANOUS REPORT Type 2 diabetes with hyperglycemia. MMODL / IJN: [id number] /
== END 2021-12-01 18:48 | disposition home or self-care (01) | DRG 638 ==
LOC: EC 13:24 → 3SCARD 16:51
PROVIDERS: ADMIT Family Medicine; ATTEND Family Medicine
DX: E11.65 Type 2 diabetes mellitus with hyperglycemia (principal); E87.2 Acidosis; K86.1 Other chronic pancreatitis; Z68.41 Body mass index [BMI] 40.0-44.9, adult; Z79.4 Long term (current) use of insulin; Z28.310 Unvaccinated for COVID-19; E66.9 Obesity, unspecified; E86.0 Dehydration; Z91.19 Patient's noncompliance with other medical treatment and regimen; I10 Essential (primary) hypertension; E78.1 Pure hyperglyceridemia; E78.5 Hyperlipidemia, unspecified; F32.A Depression, unspecified; K21.9 Gastro-esophageal reflux disease without esophagitis; G89.29 Other chronic pain; M54.50 Low back pain, unspecified; Z79.84 Long term (current) use of oral hypoglycemic drugs; Z79.899 Other long term (current) drug therapy; Z87.891 Personal history of nicotine dependence; Z87.440 Personal history of urinary (tract) infections; Z88.1 Allergy status to other antibiotic agents; Z71.3 Dietary counseling and surveillance
CPT/HCPCS: 36415; 76705; 80053; 80061; 81003; 82009; 83036; 83605; 83690; 83721; 85025; 94640; 96360; 96361; 99285

== ENCOUNTER 2021-12-03 01:19 | Emergency (ER) | payer MEDICARE ==
[2021-12-03 01:26] VITALS: PULSE 67; RESP 22; TEMP 99.3
[2021-12-03 01:42] LABS: Glucose,Whole Blood 569 mg/dL (70-110)
[2021-12-03 03:16] LABS: Anisocytosis Slight; Basophils % (A) 0 %; Eosinophils # (A) 0.2 k/uL (0-0.7); Eosinophils % (A) 2 %; HCT 35.2 % (34.0-46.0); HGB 9.9 gm/dL (11.4-16.0); Hypochromasia Marked; Lymphocytes # (A) 2.1 k/uL (1.0-4.8); Lymphocytes % (A) 21 %; MCH 20.8 pg (25.0-35.0); MCHC 28.1 g/dL (31.0-37.0); Mean Platelet Volume 7.6; Microcytosis Moderate; Monocytes # (A) 0.4 k/uL (0-1.0); Monocytes % (A) 4 %; Neutrophils # (A) 6.9 k/uL (1.3-7.7); Neutrophils % (A) 70 %; Platelet Count 636 k/uL (150-450); RBC 4.76 m/uL (3.80-5.40); RDW 18.2 % (11.5-15.5); WBC 9.9 k/uL (3.8-10.6)
[2021-12-03 04:09] LABS: ALT 15 U/L (4-34); AST 22 U/L (14-36); African American GFR (CKD) >90 (>60 ml/min/1.73 sqM); Albumin 3.9 g/dL (3.5-5.0); Alkaline Phosphatase 132 U/L (38-126); Anion Gap 13 mmol/L; Blood Urea Nitrogen 17 mg/dL (7-17); Calcium 8.5 mg/dL (8.4-10.2); Carbon Dioxide 25 mmol/L (22-30); Chloride 96 mmol/L (98-107); Non-African American GFR(CKD) 84 (>60 ml/min/1.73 sqM); Potassium 4.6 mmol/L (3.5-5.1); Sodium 134 mmol/L (137-145); Total Bilirubin 0.3 mg/dL (0.2-1.3); Total Protein 6.6 g/dL (6.3-8.2)
[2021-12-03 04:11] LABS: Glucose 575 mg/dL (74-99)
[2021-12-03] MEDS ORDERED: INSULIN REGULAR 100 UNIT/ML VIAL (IV) IV STA (05:05)
[2021-12-03] MEDS ORDERED: SODIUM CHLORIDE 0.9% 1,000 ML IV ONE ×2 (05:05→05:07)
== END 2021-12-03 05:26 | disposition left against medical advice (07) ==
LOC: EC 01:19
DX: Z53.21 Procedure and treatment not carried out due to patient leaving prior to being seen by health care provider (principal)
CPT/HCPCS: 36415; 80053; 82009; 85025; 99499

== ENCOUNTER 2021-12-10 17:08 | Inpatient (IN) | payer MEDICARE ==
[2021-12-10] MEDS ORDERED: ONDANSETRON 4 MG/2 ML VIAL IVP STA (22:34)
[2021-12-10] MEDS ORDERED: SODIUM CHLORIDE 0.9% 1,000 ML IV STA (22:34)
--- NOTE | 2021-12-10 22:35 | ED ---
General Adult HPI - General Chief complaint: Nausea/Vomiting/Diarrhea Stated complaint: Weakness,Nausea Time Seen by Provider: 12/10/21 22:34 Source: patient Mode of arrival: EMS Limitations: no limitations - History of Present Illness Initial comments: 51-year-old female well known to the emergency department presents today for vomiting, diarrhea and myalgias. She has a history of diabetes which is poorly controlled. States that she has been taking her insulin as directed however continues to have high blood sugars at home. She denies any sick contacts. Does admit to chills without recorded fevers. She denies any chest pain. Does admit to generalized abdominal pain. No changes in her bowel or bladder habits. Does have history of VSD repair at age 7. No recent stress testing or echo. Denies black or bloody stools. No other alleviating, precipitating laughing factors - Related Data Home Medications Medication Instructions Recorded Confirmed Atorvastatin [Lipitor] 80 mg PO HS 06/25/19 12/11/21 lisinopriL 40 mg PO DAILY 09/24/20 12/11/21 metFORMIN HCL [Glucophage] 500 mg PO DAILY 09/24/20 12/11/21 traZODone HCL 50 - 100 mg PO HS PRN 01/11/21 12/11/21 Ergocalciferol (Vitamin D2) 1,250 mcg PO TU 03/03/21 12/11/21 [Drisdol (50,000 Iu)] Albuterol Inhaler [Ventolin Hfa 2 puff INHALATION RT-QID PRN 07/28/21 12/11/21 Inhaler] INSULIN ASPART (NovoLOG) [NovoLOG 18 unit SQ AC-TID 09/24/21 12/11/21 (formulary)] Previous Rx's Medication Instructions Recorded Fenofibrate [Lofibra] 160 mg PO DAILY #30 tab 03/23/19 Insulin Detemir (Levemir) [Levemir] 100 unit SQ DAILY@0700 30 Days #1 12/11/21 pen Pantoprazole [Protonix] 40 mg PO DAILY #14 tab 12/11/21 Allergies Allergy/AdvReac Type Severity Reaction Status Date / Time levofloxacin [From Levaquin] Allergy Rash/Hives Verified 12/11/21 09:33 Review of Systems ROS Statement: Those systems with pertinent positive or pertinent negative responses have been documented in the HPI. ROS Other: All systems not noted in ROS Statement are negative. Past Medical History Past Medical History: Diabetes Mellitus, GERD/Reflux, Hyperlipidemia, Hyp ertension, Syncope Additional Past Medical History / Comment(s): Pt recently admitted to [facility] on 07/21/21 with uncontrolled IDDM and hyperkalemia. Other hx: Recurrent pancr eatitis, hypertriglyceridemia, elevated lipase, IDDM type II, UTI, chronic low back pain, bulging discs, dental abscesses in past. History of Any Multi-Drug Resistant Organisms: None Reported Past Surgical History: Tubal Ligation Additional Past Surgical History / Comment(s): Age 7 had VSD repair Past Anesthesia/Blood Transfusion Reactions: No Reported Reaction Past Psychological History: No Psychological Hx Reported Smoking Status: Former smoker Past Alcohol Use History: None Reported Past Drug Use History: None Reported - Past Family History Mother Family Medical History: No Reported History Additional Family Medical History / Comment(s): Mother was healthy. She is , pt cannot recall cause of . Father Family Medical History: Pneumonia Additional Family Medical History / Comment(s): Father at the age of 67yrs from pneumonia General Exam Limitations: no limitations General appearance: alert, in no apparent distress Head exam: Present: atraumatic, normocephalic, normal inspection Eye exam: Present: normal appearance, PERRL, EOMI. Absent: scleral icterus, conjunctival injection, periorbital swelling ENT exam: Present: normal exam, mucous membranes moist Neck exam: Present: normal inspection. Absent: tenderness, meningismus, lymphadenopathy Respiratory exam: Present: normal lung sounds bilaterally. Absent: respiratory distress, wheezes, rales, rhonchi, stridor Cardiovascular Exam: Present: regular rate, normal rhythm, normal heart sounds. Absent: systolic murmur, diastolic murmur, rubs, gallop, clicks GI/Abdominal exam: Present: soft, normal bowel sounds. Absent: distended, t enderness, guarding, rebound, rigid Extremities exam: Present: normal inspection, full ROM, normal capillary refill. Absent: tenderness, pedal edema, joint swelling, calf tenderness Back exam: Present: normal inspection Neurological exam: Present: alert, oriented X3, CN II-XII intact Psychiatric exam: Present: normal affect, normal mood Skin exam: Present: warm, dry, intact, normal color. 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 DE interval 139. QRS 85. QTC of 416. No acute ST segment elevations or depressions Medical Decision Making - Medical Decision Making Upon arrival patient was placed into room 10. History and physical exam was performed. She was placed on continuous pulse ox and cardiac monitoring. 12- lead EKG was performed. Glucose was obtained and was 500. IV access was established. Patient was given a liter bolus of normal saline, 4 mg of Zofran and 4 mg of morphine. Laboratory studies are conducted and reviewed. Laboratory studies reveal a glucose of 287. She was given 15 units of insulin.. Potassium is 6 however redrawn as it is a hemolyzed specimen. Lactic acid 2.6. Magnesium 1.5. Patient was given a gram of magnesium. Troponin markedly elevated at 1.0. Patient denies any chest pain at this time. Acetone and Covid are not detected. CT of the abdomen and pelvis demonstrates bilateral variable renal cortical thinning. Chest x-ray demonstrates no acute process. Patient was given an aspirin and started on a heparin drip as she has no contraindications. Spoke with Dr. Jolly who was agreeable to admit the patient. - Lab Data Result diagrams: 12/10/21 23:49 12/11/21 01:11 Lab Results 12/10/21 12/10/21 12/10/21 Range/Units 23:49 23:49 23:49 WBC 10.0 (3.8-10.6) k/uL RBC 5.20 (3.80-5.40) m/uL Hgb 11.1 L (11.4-16.0) gm/dL Hct 37.7 (34.0-46.0) % MCV 72.5 L (80.0-100.0) fL MCH 21.4 L (25.0-35.0) pg MCHC 29.5 L (31.0-37.0) g/dL RDW 18.7 H (11.5-15.5) % Plt Count 729 H (150-450) k/uL MPV 7.7 Neutrophils % 63 % Lymphocytes % 29 % Monocytes % 3 % Eosinophils % 2 % Basophils % 1 % Neutrophils # 6.3 (1.3-7.7) k/uL Lymphocytes # 2.9 (1.0-4.8) k/uL Monocytes # 0.3 (0-1.0) k/uL Eosinophils # 0.2 (0-0.7) k/uL Basophils # 0.1 (0-0.2) k/uL Hypochromasia Marked Anisocytosis Slight Microcytosis Moderate PT 10.4 (9.0-12.0) sec INR 0.9 (<1.2) APTT 22.0 (22.0-30.0) sec Sodium 134 L (137-145) mmol/L Potassium 6.0 H (3.5-5.1) mmol/L Chloride 100 (98-107) mmol/L Carbon Dioxide 19 L (22-30) mmol/L Anion Gap 15 mmol/L BUN 16 (7-17) mg/dL Creatinine 0.67 (0.52-1.04) mg/dL Est GFR (CKD-EPI)AfAm >90 (>60 ml/min/1.73 sqM) Est GFR (CKD-EPI)NonAf >90 (>60 ml/min/1.73 sqM) Glucose 287 H (74-99) mg/dL POC Glucose (mg/dL) (70-110) mg/dL POC Glu [employer] ID Lactic Ac Sepsis Rflx Plasma Lactic Acid Travon (0.7-2.0) mmol/L Calcium 9.2 (8.4-10.2) mg/dL Magnesium 1.5 L (1.6-2.3) mg/dL Total Bilirubin 0.7 (0.2-1.3) mg/dL AST 70 H (14-36) U/L ALT 30 (4-34) U/L Alkaline Phosphatase 179 H (38-126) U/L Troponin I (0.000-0.034) ng/mL Total Protein 8.3 H (6.3-8.2) g/dL Albumin 4.6 (3.5-5.0) g/dL Urine Color Urine Appearance (Clear) Urine pH (5.0-8.0) Ur Specific [place] (1.001-1.035) Urine Protein (Negative) Urine Glucose (UA) (Negative) Urine Ketones (Negative) Urine Blood (Negative) Urine Nitrite (Negative) Urine Bilirubin (Negative) Urine Urobilinogen (<2.0) mg/dL Ur Leukocyte Esterase (Negative) Urine RBC (0-5) /hpf Urine WBC (0-5) /hpf Ur Squamous Epith Cells (0-4) /hpf Hyaline Casts (0-2) /lpf Urine Mucus (None) /hpf Acetone, Qual Negative (Negative) Coronavirus (PCR) (Not Detectd) 12/10/21 12/10/21 12/10/21 Range/Units 23:49 23:49 23:49 WBC (3.8-10.6) k/uL RBC (3.80-5.40) m/uL Hgb (11.4-16.0) gm/dL Hct (34.0-46.0) % MCV (80.0-100.0) fL MCH (25.0-35.0) pg MCHC (31.0-37.0) g/dL RDW (11.5-15.5) % Plt Count (150-450) k/uL MPV Neutrophils % % Lymphocytes % % Monocytes % % Eosinophils % % Basophils % % Neutrophils # (1.3-7.7) k/uL Lymphocytes # (1.0-4.8) k/uL Monocytes # (0-1.0) k/uL Eosinophils # (0-0.7) k/uL Basophils # (0-0.2) k/uL Hypochromasia Anisocytosis Microcytosis PT (9.0-12.0) sec INR (<1.2) APTT (22.0-30.0) sec Sodium (137-145) mmol/L Potassium (3.5-5.1) mmol/L Chloride (98-107) mmol/L Carbon Dioxide (22-30) mmol/L Anion Gap mmol/L BUN (7-17) mg/dL Creatinine (0.52-1.04) mg/dL Est GFR (CKD-EPI)AfAm (>60 ml/min/1.73 sqM) Est GFR (CKD-EPI)NonAf (>60 ml/min/1.73 sqM) Glucose (74-99) mg/dL POC Glucose (mg/dL) (70-110) mg/dL POC Glu [employer] ID Lactic Ac Sepsis Rflx Plasma Lactic Acid Travon 2.6 H* (0.7-2.0) mmol/L Calcium (8.4-10.2) mg/dL Magnesium (1.6-2.3) mg/dL Total Bilirubin (0.2-1.3) mg/dL AST (14-36) U/L ALT (4-34) U/L Alkaline Phosphatase (38-126) U/L Troponin I 1.010 H* (0.000-0.034) ng/mL Total Protein (6.3-8.2) g/dL Albumin (3.5-5.0) g/dL Urine Color Yellow Urine Appearance Cloudy H (Clear) Urine pH 6.0 (5.0-8.0) Ur Specific [place] 1.020 (1.001-1.035) Urine Protein 2+ H (Negative) Urine Glucose (UA) 1+ H (Negative) Urine Ketones Negative (Negative) Urine Blood Negative (Negative) Urine Nitrite Negative (Negative) Urine Bilirubin Negative (Negative) Urine Urobilinogen <2.0 (<2.0) mg/dL Ur Leukocyte Esterase Negative (Negative) Urine RBC 2 (0-5) /hpf Urine WBC 3 (0-5) /hpf Ur Squamous Epith Cells 14 H (0-4) /hpf Hyaline Casts 1 (0-2) /lpf Urine Mucus Rare H (None) /hpf Acetone, Qual (Negative) Coronavirus (PCR) (Not Detectd) 12/10/21 12/11/21 12/11/21 Range/Units 23:49 00:37 01:00 WBC (3.8-10.6) k/uL RBC (3.80-5.40) m/uL Hgb (11.4-16.0) gm/dL Hct (34.0-46.0) % MCV (80.0-100.0) fL MCH (25.0-35.0) pg MCHC (31.0-37.0) g/dL RDW (11.5-15.5) % Plt Count (150-450) k/uL MPV Neutrophils % % Lymphocytes % % Monocytes % % Eosinophils % % Basophils % % Neutrophils # (1.3-7.7) k/uL Lymphocytes # (1.0-4.8) k/uL Monocytes # (0-1.0) k/uL Eosinophils # (0-0.7) k/uL Basophils # (0-0.2) k/uL Hypochromasia Anisocytosis Microcytosis PT (9.0-12.0) sec INR (<1.2) APTT (22.0-30.0) sec Sodium (137-145) mmol/L Potassium (3.5-5.1) mmol/L Chloride (98-107) mmol/L Carbon Dioxide (22-30) mmol/L Anion Gap mmol/L BUN (7-17) mg/dL Creatinine (0.52-1.04) mg/dL Est GFR (CKD-EPI)AfAm (>60 ml/min/1.73 sqM) Est GFR (CKD-EPI)NonAf (>60 ml/min/1.73 sqM) Glucose (74-99) mg/dL POC Glucose (mg/dL) (70-110) mg/dL POC Glu [employer] ID Lactic Ac Sepsis Rflx Y Plasma Lactic Acid [place]on (0.7-2.0) mmol/L Calcium (8.4-10.2) mg/dL Magnesium (1.6-2.3) mg/dL Total Bilirubin (0.2-1.3) mg/dL AST (14-36) U/L ALT (4-34) U/L Alkaline Phosphatase (38-126) U/L Troponin I 1.000 H* (0.000-0.034) ng/mL Total Protein (6.3-8.2) g/dL Albumin (3.5-5.0) g/dL Urine Color Urine Appearance (Clear) Urine pH (5.0-8.0) Ur Specific [place] (1.001-1.035) Urine Protein (Negative) Urine Glucose (UA) (Negative) Urine Ketones (Negative) Urine Blood (Negative) Urine Nitrite (Negative) Urine Bilirubin (Negative) Urine Urobilinogen (<2.0) mg/dL Ur Leukocyte Esterase (Negative) Urine RBC (0-5) /hpf Urine WBC (0-5) /hpf Ur Squamous Epith Cells (0-4) /hpf Hyaline Casts (0-2) /lpf Urine Mucus (None) /hpf Acetone, Qual (Negative) Coronavirus (PCR) Not Detected (Not Detectd) 12/11/21 12/11/21 Range/Units 01:04 01:11 WBC (3.8-10.6) k/uL RBC (3.80-5.40) m/uL Hgb (11.4-16.0) gm/dL Hct (34.0-46.0) % MCV (80.0-100.0) fL MCH (25.0-35.0) pg MCHC (31.0-37.0) g/dL RDW (11.5-15.5) % Plt Count (150-450) k/uL MPV Neutrophils % % Lymphocytes % % Monocytes % % Eosinophils % % Basophils % % Neutrophils # (1.3-7.7) k/uL Lymphocytes # (1.0-4.8) k/uL Monocytes # (0-1.0) k/uL Eosinophils # (0-0.7) k/uL Basophils # (0-0.2) k/uL Hypochromasia Anisocytosis Microcytosis PT (9.0-12.0) sec INR (<1.2) APTT (22.0-30.0) sec Sodium (137-145) mmol/L Potassium 4.5 (3.5-5.1) mmol/L Chloride (98-107) mmol/L Carbon Dioxide (22-30) mmol/L Anion Gap mmol/L BUN (7-17) mg/dL Creatinine (0.52-1.04) mg/dL Est GFR (CKD-EPI)AfAm (>60 ml/min/1.73 sqM) Est GFR (CKD-EPI)NonAf (>60 ml/min/1.73 sqM) Glucose (74-99) mg/dL POC Glucose (mg/dL) 266 H (70-110) mg/dL POC Glu [employer] ID Bogdan Vaughn Lactic Ac Sepsis Rflx Plasma Lactic Acid [place]on (0.7-2.0) mmol/L Calcium (8.4-10.2) mg/dL Magnesium (1.6-2.3) mg/dL Total Bilirubin (0.2-1.3) mg/dL AST (14-36) U/L ALT (4-34) U/L Alkaline Phosphatase (38-126) U/L Troponin I (0.000-0.034) ng/mL Total Protein (6.3-8.2) g/dL Albumin (3.5-5.0) g/dL Urine Color Urine Appearance (Clear) Urine pH (5.0-8.0) Ur Specific [place] (1.001-1.035) Urine Protein (Negative) Urine Glucose (UA) (Negative) Urine Ketones (Negative) Urine Blood (Negative) Urine Nitrite (Negative) Urine Bilirubin (Negative) Urine Urobilinogen (<2.0) mg/dL Ur Leukocyte Esterase (Negative) Urine RBC (0-5) /hpf Urine WBC (0-5) /hpf Ur Squamous Epith Cells (0-4) /hpf Hyaline Casts (0-2) /lpf Urine Mucus (None) /hpf Acetone, Qual (Negative) Coronavirus (PCR) (Not Detectd) Critical Care Time Critical Care Time: Yes Critical Care Time: 35 minutes Disposition Clinical Impression: Nausea and vomiting, NSTEMI (non-ST elevated myocardial infarction), Hyperglycemia, Hypomagnesemia, Abdominal pain, Hyperkalemia Disposition: ADMITTED IP TO THIS [facility] Condition: Serious Is patient prescribed a controlled substance at d/c from ED?: No Time of Disposition: 01:39 Decision to Admit Reason: Admit from EC Decision Date: 12/11/21 Decision Time: 01:39
[2021-12-11 00:02] LABS: Anisocytosis Slight; Basophils # (A) 0.1 k/uL (0-0.2); Basophils % (A) 1 %; Eosinophils # (A) 0.2 k/uL (0-0.7); Eosinophils % (A) 2 %; HCT 37.7 % (34.0-46.0); HGB 11.1 gm/dL (11.4-16.0); Hypochromasia Marked; Lymphocytes # (A) 2.9 k/uL (1.0-4.8); Lymphocytes % (A) 29 %; MCH 21.4 pg (25.0-35.0); MCHC 29.5 g/dL (31.0-37.0); MCV 72.5 fL (80.0-100.0); Mean Platelet Volume 7.7; Microcytosis Moderate; Monocytes # (A) 0.3 k/uL (0-1.0); Monocytes % (A) 3 %; Neutrophils # (A) 6.3 k/uL (1.3-7.7); Neutrophils % (A) 63 %; Platelet Count 729 k/uL (150-450); RDW 18.7 % (11.5-15.5)
[2021-12-11 00:09] LABS: Appearance,Urine Cloudy (Clear); Bilirubin,Urine Negative (Negative); Blood,Urine Negative (Negative); Color,Urine Yellow; Glucose,Urine (UA) 1+ (Negative); Hyaline Casts,Urine 1 /lpf (0-2); INR 0.9 (<1.2); Ketones,Urine Negative (Negative); Leukocyte Esterase,Urine Negative (Negative); Mucus,Urine Rare /hpf; Nitrite,Urine Negative (Negative); Protein,Urine 2+ (Negative); Prothrombin Time 10.4 sec (9.0-12.0); RBC,Urine 2 /hpf (0-5); Squamous Epithelial Cell,Urine 14 /hpf (0-4); Urobilinogen,Urine <2.0 mg/dL (<2.0); WBC,Urine 3 /hpf (0-5)
[2021-12-11] MEDS ORDERED: INSULIN REGULAR 100 UNIT/ML VIAL (IM/SQ) SQ ONE (00:17)
[2021-12-11 00:23] LABS: ALT 30 U/L (4-34); African American GFR (CKD) >90 (>60 ml/min/1.73 sqM); Anion Gap 15 mmol/L; Blood Urea Nitrogen 16 mg/dL (7-17); Calcium 9.2 mg/dL (8.4-10.2); Carbon Dioxide 19 mmol/L (22-30); Chloride 100 mmol/L (98-107); Glucose 287 mg/dL (74-99); Non-African American GFR(CKD) >90 (>60 ml/min/1.73 sqM); Sodium 134 mmol/L (137-145); Total Bilirubin 0.7 mg/dL (0.2-1.3)
[2021-12-11 00:24] LABS: AST 70 U/L (14-36); Albumin 4.6 g/dL (3.5-5.0); Magnesium 1.5 mg/dL (1.6-2.3); Total Protein 8.3 g/dL (6.3-8.2)
[2021-12-11 00:25] LABS: Alkaline Phosphatase 179 U/L (38-126)
[2021-12-11] MEDS ORDERED: MAGNESIUM SULFATE-D5W PMX 1 GM in DEXTROSE/WATER 1 100ML.BAG IVPB ONE (00:35)
[2021-12-11] MEDS ORDERED: MORPHINE SULFATE 4 MG/ML SYRINGE IVP STA (00:46)
[2021-12-11] MEDS ORDERED: HEPARIN SODIUM 1,000 UN/ML (10ML VL) IV ONE (00:47)
[2021-12-11] MEDS ORDERED: HEPARIN SODIUM 1,000 UN/ML (10ML VL) IV PRN (00:47)
[2021-12-11] MEDS ORDERED: HEPARIN SOD,PORK IN 0.45% NACL 25,000 UNIT in 0.45% NACL 1 250ML.BAG IV SCH (01:00)
[2021-12-11 01:06] LABS: Glucose,Whole Blood 266 mg/dL (70-110)
--- NOTE | 2021-12-11 01:06 | CT ---
EXAMINATION TYPE: CT abdomen pelvis w con DATE OF EXAM: 12/11/2021 COMPARISON: 04/01/2021 HISTORY: abd pain CT DLP: 1585.6 mGycm Automated exposure control for dose reduction was used. CONTRAST: Performed with IV Contrast, patient injected with 100 mL of Isovue 300. Images obtained from the diaphragm to the floor the pelvis with the IV contrast. The lung bases are clear. No pleural effusion. Heart size is normal. No pericardial effusion. Liver s pleen stomach pancreas appear intact. Gallbladder appears normal. The bile duct are not dilated. Live r is large and measures 20 cm in length. There is no adrenal mass. Kidneys show satisfactory contrast opacification. There is no hydronephrosi s. Ureters are not dilated. No retroperitoneal adenopathy. The bladder distends smoothly. Uterus is a nteverted. There are clips from tubal ligation. No pelvic mass. There are bilateral fat-containing an d wall hernias. There is no mesenteric edema. No ascites or free air. No sign of a bowel obstruction. Appendix is ant erior and medial and appears normal. The lumbar vertebrae have normal alignment. Disc spaces are fair ly normal. No compression fracture. The bony pelvis is intact. The hip joints are intact. Sacroiliac joints are intact. There is variable cortical thinning in the kidneys. IMPRESSION: There is bilateral variable renal cortical thinning that could relate to scarring or chronic pyelonep hritis. Unchanged. There is clearing of the inflammatory changes around the pancreas compared to old exam. Mild hepatomegaly similar to the old exam.
[2021-12-11] MEDS ORDERED: ASPIRIN 81 MG PO STA (01:34)
[2021-12-11] MEDS ORDERED: MORPHINE SULFATE 4 MG/ML SYRINGE IV PRN (01:39)
[2021-12-11] MEDS ORDERED: ONDANSETRON 4 MG/2 ML VIAL IVP PRN (01:39)
[2021-12-11] MEDS ORDERED: NALOXONE 0.4 MG/ML 1 ML VIAL IV PRN (01:39)
[2021-12-11] MEDS ORDERED: SODIUM CHLORIDE 0.9% 1,000 ML IV SCH (01:45)
--- NOTE | 2021-12-11 01:55 | XR ---
EXAMINATION TYPE: XR chest 2V DATE OF EXAM: 12/11/2021 COMPARISON: 10/13/2021 HISTORY: Pain TECHNIQUE: 2 views FINDINGS: Heart is normal. There is some minimal infiltrate or atelectasis left mid lung field. Right lung is clear. There are no hilar masses. Bony thorax is intact. IMPRESSION: There is some minimal infiltrate and atelectasis in the left midlung field which is impro skey compared to old exam. Normal heart.
[2021-12-11 09:03] VITALS: RESP 15
[2021-12-11 09:03] LABS: Glucose,Whole Blood 286 mg/dL (70-110)
[2021-12-11] MEDS: INSULIN ASPART (NovoLOG) 100 UNIT/ML VIAL SQ SCH ×2 (09:12→12:22)
--- NOTE | 2021-12-11 10:53 | P.CRDCN ---
History of Present Illness Consult date: 12/11/21 Reason for Consult (text): Elevated troponins History of present illness: The patient is a 51-year-old female with past medical history is hypertension, dyslipidemia, and diabetes mellitus, who presented to the emergency room with nausea and vomiting. The patient had been feeling unwell for the last 3-4 days. She also reports diarrhea. She's been unable to keep food or medications down. The patient states she has not had any chest pain, chest pressure, or shortness of breath. She denies any dizziness or lightheadedness. DIAGNOSTICS: EKG shows sinus rhythm without ST or T-wave abnormalities CT of abdomen and pelvis showed no acute abnormalities Chest x-ray shows minimal infiltrate and atelectasis in the left midlung Lab data is: WBC 10.0, hemoglobin 11.1, hematocrit 37.7, platelets 729, sodium 134, potassium 6.0/4.5, BUN 16, creatinine 0.67, lactic acid is 2.6, magnesium 1.5, AST 70, ALT 30, ALP 179, troponin 1.0, 1.0, 0.8, 0.6 PAST MEDICAL HISTORY: Diabetes mellitus, hypertension and dyslipidemia REVIEW OF SYSTEMS: No fever or chills. No cough or expectoration. No diaphoresis. Patient denies headache, dizziness, blurred vision, double vision. No hematochezia. No hematemesis. Denies any black stools or blood in his stools. Denies dysuria or hematuria. No muscle weakness or numbness. PHYSICAL EXAMINATION: This is a 51-year-old female in no apparent distress at the time of my examination. HEENT: Head is atraumatic, normocephalic. Pupils are equal, round. Sclerae anicteric. Conjunctivae are clear. Mucous membranes of the mouth are moist. Neck is supple. There is no jugular venous distention. No carotid bruit is heard. CHEST EXAMINATION: Lungs are clear to auscultation. No chest wall tenderness is noted on palpation or with deep breathing. HEART EXAMINATION: Heart regular rate and rhythm. S1, S2 heard. No murmurs, gallops or rub. ABDOMEN: Soft, tender to palpation. Bowel sounds are heard. No organomegaly noted. EXTREMITIES: 2+ peripheral pulses with no evidence of peripheral edema and no calf tenderness noted. NEUROLOGIC EXAMINATION: Patient is awake, alert and oriented x3. FINAL ASSESSMENT AND PLAN: Elevated troponin, downtrend, not indicative of acute coronary syndrome Dehydration, secondary to nausea and diarrhea Abdominal discomfort PLAN: Discontinue heparin drip No need for additional cardiac workup No further recommendations from the cardiac standpoint I am dictating on behalf of Dr Isak Lowery's history/physical and assessment/plan. Past Medical History Past Medical History: Diabetes Mellitus, GERD/Reflux, Hyperlipidemia, Hypertens ion, Syncope Additional Past Medical History / Comment(s): Pt recently admitted to [facility] on 07/21/21 with uncontrolled IDDM and hyperkalemia. Other hx: Recurrent pancreatitis, hypertriglyceridemia, elevated lipase, IDDM type II, UTI, chronic low back pain, bulging discs, dental abscesses in past. History of Any Multi-Drug Resistant Organisms: None Reported Past Surgical History: Tubal Ligation Additional Past Surgical History / Comment(s): Age 7 had VSD repair Past Anesthesia/Blood Transfusion Reactions: No Reported Reaction Past Psychological History: No Psychological Hx Reported Smoking Status: Former smoker Past Alcohol Use History: None Reported Past Drug Use History: None Reported - Past Family History Mother Family Medical History: No Reported History Additional Family Medical History / Comment(s): Mother was healthy. She is , pt cannot recall cause of . Father Family Medical History: Pneumonia Additional Family Medical History / Comment(s): Father at the age of 67yrs from pneumonia Medications and Allergies Home Medications Medication Instructions Recorded Confirmed Type Fenofibrate [Lofibra] 160 mg PO DAILY #30 tab 03/23/19 12/11/21 Rx Atorvastatin [Lipitor] 80 mg PO HS 06/25/19 12/11/21 History lisinopriL 40 mg PO DAILY 09/24/20 12/11/21 History metFORMIN HCL [Glucophage] 500 mg PO DAILY 09/24/20 12/11/21 History traZODone HCL 50 - 100 mg PO HS PRN 01/11/21 12/11/21 History Ergocalciferol (Vitamin D2) 1,250 mcg PO TU 03/03/21 12/11/21 History [Drisdol (50,000 Iu)] Esomeprazole Magnesium [NexIUM] 20 mg PO DAILY 03/28/21 12/11/21 History Albuterol Inhaler [Ventolin Hfa 2 puff INHALATION RT-QID PRN 07/28/21 12/11/21 History Inhaler] INSULIN ASPART (NovoLOG) [NovoLOG 18 unit SQ AC-TID 09/24/21 12/11/21 History (formulary)] Omeprazole [PriLOSEC] 40 mg PO DAILY #30 cap 10/15/21 12/11/21 Rx Insulin Detemir (Levemir) [Levemir] 80 unit SQ DAILY@0700 30 Days #1 12/01/21 12/11/21 Rx pen hydrALAZINE HCL [Apresoline] 25 mg PO QID #120 tab 12/01/21 12/11/21 Rx hydrOXYzine HCL [Atarax] 25 mg PO TID 12/11/21 12/11/21 History Allergies Allergy/AdvReac Type Severity Reaction Status Date / Time levofloxacin [From Levaquin] Allergy Rash/Hives Verified 12/11/21 09:33 Physical Exam Vitals: Vital Signs Temp Pulse Resp BP BP Pulse Ox 12/11/21 08:00 98.4 F 15 140/67 12/11/21 06:20 97.5 F L 70 17 113/71 96 12/11/21 01:53 67 15 154/91 96 12/11/21 01:02 67 18 154/89 97 12/10/21 18:58 99.1 F 69 16 139/77 97 Intake and Output 12/10/21 12/11/21 12/11/21 22:59 06:59 14:59 Intake Total 20 Balance 20 Intake: IV 20 Invasive Line 1 20 Other: Weight 102.965 kg Results 12/10/21 23:49 12/11/21 01:11 Cardiac Enzymes 12/10/21 12/10/21 12/11/21 Range/Units 23:49 23:49 01:00 AST 70 H (14-36) U/L Troponin I 1.010 H* 1.000 H* (0.000-0.034) ng/mL 12/11/21 12/11/21 Range/Units 02:50 06:52 AST (14-36) U/L Troponin I 0.853 H* 0.600 H* (0.000-0.034) ng/mL Coagulation 12/10/21 12/11/21 Range/Units 23:49 06:52 PT 10.4 (9.0-12.0) sec APTT 22.0 23.4 (22.0-30.0) sec CBC 12/10/21 Range/Units 23:49 WBC 10.0 (3.8-10.6) k/uL RBC 5.20 (3.80-5.40) m/uL Hgb 11.1 L (11.4-16.0) gm/dL Hct 37.7 (34.0-46.0) % Plt Count 729 H (150-450) k/uL Comprehensive Metabolic Panel 12/10/21 12/11/21 Range/Units 23:49 01:11 Sodium 134 L (137-145) mmol/L Potassium 6.0 H 4.5 (3.5-5.1) mmol/L Chloride 100 (98-107) mmol/L Carbon Dioxide 19 L (22-30) mmol/L BUN 16 (7-17) mg/dL Creatinine 0.67 (0.52-1.04) mg/dL Glucose 287 H (74-99) mg/dL Calcium 9.2 (8.4-10.2) mg/dL AST 70 H (14-36) U/L ALT 30 (4-34) U/L Alkaline Phosphatase 179 H (38-126) U/L Total Protein 8.3 H (6.3-8.2) g/dL Albumin 4.6 (3.5-5.0) g/dL Current Medications Generic Name Dose Route Start Last Admin Trade Name Freq PRN Reason Stop Dose Admin Heparin Sodium (Porcine) 0 unit 12/11/21 00:47 Heparin Sodium 1,000 Un/Ml (10ml Vl) IV PER PROTOCOL PRN Low PTT Protocol Heparin Sodium/Sodium Chloride 250 mls @ 10.006 mls/hr 12/11/21 01:00 12/11/21 01:42 25,000 unit/ Sodium Chloride IV 9.718 units/kg/hr .Q24H YARON 10.006 mls/hr Administration Protocol 9.718 UNITS/KG/HR Sodium Chloride 1,000 mls @ 75 mls/hr 12/11/21 01:45 12/11/21 01:44 Saline 0.9% IV 75 mls/hr .[id number] YARON Administration Insulin Aspart 18 unit 12/11/21 07:30 12/11/21 09:12 Insulin Aspart (Novolog) 100 Unit/Ml Vial SQ 18 unit AC-TID YARON Administration Morphine Sulfate 4 mg 12/11/21 01:39 12/11/21 08:03 Morphine Sulfate 4 Mg/Ml Syringe IV 4 mg Q4HR PRN Administration Severe Pain (Scale 7 to 10) Naloxone HCl 0.2 mg 12/11/21 01:39 Naloxone 0.4 Mg/Ml 1 Ml Vial IV Q2M PRN Opioid Reversal Ondansetron HCl 4 mg 12/11/21 01:39 Ondansetron 4 Mg/2 Ml Vial IVP Q8HR PRN Nausea And Vomiting Intake and Output 12/10/21 12/11/21 12/11/21 22:59 06:59 14:59 Intake Total 20 Balance 20 Intake: IV 20 Invasive Line 1 20 Other: Weight 102.965 kg 12/10/21 23:49 12/11/21 01:11
[2021-12-11] MEDS ORDERED: ALBUTEROL HFA INHALER INHALATION PRN (11:23)
[2021-12-11] MEDS ORDERED: traZODone HCL 50 MG TAB PO PRN (11:23)
[2021-12-11] MEDS ORDERED: traMADol 50 MG TAB PO PRN (11:25)
[2021-12-11] MEDS ORDERED: PANTOPRAZOLE 40 MG/10 ML VIAL IVP SCH (11:30)
[2021-12-11 12:14] LABS: Glucose,Whole Blood 282 mg/dL (70-110)
[2021-12-11 13:30] VITALS: BP 121/56; PULSE 62; TEMP 98.8
--- NOTE | 2021-12-11 13:44 | P.DS ---
Providers Date of admission: 12/11/21 01:39 Attending physician: Shlomo Jolly MD Consults: 12/11/21 01:39 Consult Physician Urgent Consulting Provider: [facility] Consult Reason/Comments: elevated troponin Do you want consulting provider notified?: Yes Primary care physician: Guillermo Cerda [facility] Course: Please refer to history of present illness for further details Patient Condition at Discharge: Serious Plan - Discharge Summary New Discharge Prescriptions: New Pantoprazole [Protonix] 40 mg PO DAILY #14 tab Continue Fenofibrate [Lofibra] 160 mg PO DAILY #30 tab Atorvastatin [Lipitor] 80 mg PO HS metFORMIN HCL [Glucophage] 500 mg PO DAILY Ergocalciferol (Vitamin D2) [Drisdol (50,000 Iu)] 1,250 mcg PO TU INSULIN ASPART (NovoLOG) [NovoLOG (formulary)] 18 unit SQ AC-TID lisinopriL 40 mg PO DAILY traZODone HCL 50 - 100 mg PO HS PRN PRN Reason: Insomnia Albuterol Inhaler [Ventolin Hfa Inhaler] 2 puff INHALATION RT-QID PRN PRN Reason: Shortness Of Breath Changed Insulin Detemir (Levemir) [Levemir] 100 unit SQ DAILY@0700 30 Days #1 pen Discontinued Omeprazole [PriLOSEC] 40 mg PO DAILY #30 cap hydrALAZINE HCL [Apresoline] 25 mg PO QID #120 tab Esomeprazole Magnesium [NexIUM] 20 mg PO DAILY hydrOXYzine HCL [Atarax] 25 mg PO TID Discharge Medication List Fenofibrate [Lofibra] 160 mg PO DAILY #30 tab 03/23/19 [Rx] Atorvastatin [Lipitor] 80 mg PO HS 06/25/19 [History] lisinopriL 40 mg PO DAILY 09/24/20 [History] metFORMIN HCL [Glucophage] 500 mg PO DAILY 09/24/20 [History] traZODone HCL 50 - 100 mg PO HS PRN 01/11/21 [History] Ergocalciferol (Vitamin D2) [Drisdol (50,000 Iu)] 1,250 mcg PO TU 03/03/21 [History] Albuterol Inhaler [Ventolin Hfa Inhaler] 2 puff INHALATION RT-QID PRN 07/28/21 [History] INSULIN ASPART (NovoLOG) [NovoLOG (formulary)] 18 unit SQ AC-TID 09/24/21 [History] Insulin Detemir (Levemir) [Levemir] 100 unit SQ DAILY@0700 30 Days #1 pen 12/11/21 [Rx] Pantoprazole [Protonix] 40 mg PO DAILY #14 tab 12/11/21 [Rx] Follow up Appointment(s)/Referral(s): Guillermo Cerda MD [Primary Care Provider] - 3 Days
--- NOTE | 2021-12-11 13:44 | P.HPIM ---
History of Present Illness 51-year-old female came in with complaints of epigastric abdominal discomfort and nausea vomiting. All of the symptoms resolved at this time. Patient is able to tolerate diet very well. Patient is also found to have mildly elevated troponin of 0.85 and 0.6. Patient denied any chest pain EKG did not show any significant acute ST-T wave changes patient was evaluated by cardiology they're not recommending any further testing at this time, patient was cleared for discharge from cardiology perspective REVIEW OF SYSTEMS: CONSTITUTIONAL: No fever, no malaise, no fatigue. HEENT: No recent visual problems or hearing problems. Denied any sore throat. CARDIOVASCULAR: No chest pain, orthopnea, PND, no palpitations, no syncope. PULMONARY: No shortness of breath, no cough, no hemoptysis. GASTROINTESTINAL: No diarrhea. NEUROLOGICAL: No headaches, no weakness, no numbness. HEMATOLOGICAL: Denies any bleeding or petechiae. GENITOURINARY: Denies any burning micturition, frequency, or urgency. MUSCULOSKELETAL/RHEUMATOLOGICAL: Denies any joint pain, swelling, or any muscle pain. ENDOCRINE: Denies any polyuria or polydipsia. The rest of the 14-point review of systems is negative. PHYSICAL EXAMINATION: GENERAL: The patient is alert and oriented x3, not in any acute distress. Well developed, well nourished. HEENT: Pupils are round and equally reacting to light. EOMI. No scleral icterus. No conjunctival pallor. Normocephalic, atraumatic. No pharyngeal erythema. No thyromegaly. CARDIOVASCULAR: S1 and S2 present. No murmurs, rubs, or gallops. PULMONARY: Chest is clear to auscultation, no wheezing or crackles. ABDOMEN: Soft, nontender, nondistended, normoactive bowel sounds. No palpable organomegaly. MUSCULOSKELETAL: No joint swelling or deformity. EXTREMITIES: No cyanosis, clubbing, or pedal edema. NEUROLOGICAL: Gross neurological examination did not reveal any focal deficits. SKIN: No rashes. Assessment and plan -Epigastric abdominal discomfort and nausea vomiting: Possibly the of gastritis or peptic ulcer disease patient will be discharged on Protonix. -Mild elevation of troponin: Was a valid by cardiology troponin elevation is not consistent with acute myocardial infarction -Hyponatremia hypervolemic hyponatremia secondary to dehydration patient received IV fluids -Type 2 diabetes mellitus uncontrolled blood sugars will increase the dose of long-acting insulin from 80 units 200 units next and-hyperlipidemia -Hypertension -Obesity Patient will be discharged today on Protonix to follow up with the PCP in about the 3-7 days: Past Medical History Past Medical History: Diabetes Mellitus, GERD/Reflux, Hyperlipidemia, Hypertension, Syncope Additional Past Medical History / Comment(s): Pt recently admitted to [facility] on 07/21/21 with uncontrolled IDDM and hyperkalemia. Other hx: Recurrent pancreatitis, hypertriglyceridemia, elevated lipase, IDDM type II, UTI, chronic low back pain, bulging discs, dental abscesses in past. History of Any Multi-Drug Resistant Organisms: None Reported Past Surgical History: Tubal Ligation Additional Past Surgical History / Comment(s): Age 7 had VSD repair Past Anesthesia/Blood Transfusion Reactions: No Reported Reaction Past Psychological History: No Psychological Hx Reported Smoking Status: Former smoker Past Alcohol Use History: None Reported Past Drug Use History: None Reported - Past Family History Mother Family Medical History: No Reported History Additional Family Medical History / Comment(s): Mother was healthy. She is , pt cannot recall cause of . Father Family Medical History: Pneumonia Additional Family Medical History / Comment(s): Father at the age of 67yrs from pneumonia Medications and Allergies Home Medications Medication Instructions Recorded Confirmed Type Fenofibrate [Lofibra] 160 mg PO DAILY #30 tab 03/23/19 12/11/21 Rx Atorvastatin [Lipitor] 80 mg PO HS 06/25/19 12/11/21 History lisinopriL 40 mg PO DAILY 09/24/20 12/11/21 History metFORMIN HCL [Glucophage] 500 mg PO DAILY 09/24/20 12/11/21 History traZODone HCL 50 - 100 mg PO HS PRN 01/11/21 12/11/21 History Ergocalciferol (Vitamin D2) 1,250 mcg PO TU 03/03/21 12/11/21 History [Drisdol (50,000 Iu)] Albuterol Inhaler [Ventolin Hfa 2 puff INHALATION RT-QID PRN 07/28/21 12/11/21 History Inhaler] INSULIN ASPART (NovoLOG) [NovoLOG 18 unit SQ AC-TID 09/24/21 12/11/21 History (formulary)] Insulin Detemir (Levemir) [Levemir] 100 unit SQ DAILY@0700 30 Days #1 12/11/21 12/11/21 Rx pen Pantoprazole [Protonix] 40 mg PO DAILY #14 tab 12/11/21 Rx Allergies Allergy/AdvReac Type Severity Reaction Status Date / Time levofloxacin [From Levaquin] Allergy Rash/Hives Verified 12/11/21 09:33 Physical Exam Vitals: Vital Signs Temp Pulse Pulse Resp BP BP Pulse Ox 12/11/21 12:00 98.8 F 62 15 121/56 95 12/11/21 08:00 98.4 F 15 140/67 12/11/21 06:20 97.5 F L 70 17 113/71 96 12/11/21 01:53 67 15 154/91 96 12/11/21 01:02 67 18 154/89 97 12/10/21 18:58 99.1 F 69 16 139/77 97 Intake and Output 12/10/21 12/11/21 12/11/21 22:59 06:59 14:59 Intake Total 20 Balance 20 Intake: IV 20 Invasive Line 1 20 Other: Weight 102.965 kg Results CBC & Chem 7: 12/10/21 23:49 12/11/21 01:11 Labs: Abnormal Lab Results - Last 24 Hours (Table) 12/10/21 12/10/21 12/10/21 Range/Units 23:49 23:49 23:49 Hgb 11.1 L (11.4-16.0) gm/dL MCV 72.5 L (80.0-100.0) fL MCH 21.4 L (25.0-35.0) pg MCHC 29.5 L (31.0-37.0) g/dL RDW 18.7 H (11.5-15.5) % Plt Count 729 H (150-450) k/uL Sodium 134 L (137-145) mmol/L Potassium 6.0 H (3.5-5.1) mmol/L Carbon Dioxide 19 L (22-30) mmol/L Glucose 287 H (74-99) mg/dL POC Glucose (mg/dL) (70-110) mg/dL Plasma Lactic Acid Travon 2.6 H* (0.7-2.0) mmol/L Magnesium 1.5 L (1.6-2.3) mg/dL AST 70 H (14-36) U/L Alkaline Phosphatase 179 H (38-126) U/L Troponin I (0.000-0.034) ng/mL Total Protein 8.3 H (6.3-8.2) g/dL Urine Appearance (Clear) Urine Protein (Negative) Urine Glucose (UA) (Negative) Ur Squamous Epith Cells (0-4) /hpf Urine Mucus (None) /hpf 12/10/21 12/10/21 12/11/21 Range/Units 23:49 23:49 01:00 Hgb (11.4-16.0) gm/dL MCV (80.0-100.0) fL MCH (25.0-35.0) pg MCHC (31.0-37.0) g/dL RDW (11.5-15.5) % Plt Count (150-450) k/uL Sodium (137-145) mmol/L Potassium (3.5-5.1) mmol/L Carbon Dioxide (22-30) mmol/L Glucose (74-99) mg/dL POC Glucose (mg/dL) (70-110) mg/dL Plasma Lactic Acid Travon (0.7-2.0) mmol/L Magnesium (1.6-2.3) mg/dL AST (14-36) U/L Alkaline Phosphatase (38-126) U/L Troponin I 1.010 H* 1.000 H* (0.000-0.034) ng/mL Total Protein (6.3-8.2) g/dL Urine Appearance Cloudy H (Clear) Urine Protein 2+ H (Negative) Urine Glucose (UA) 1+ H (Negative) Ur Squamous Epith Cells 14 H (0-4) /hpf Urine Mucus Rare H (None) /hpf 12/11/21 12/11/21 12/11/21 Range/Units 01:04 02:50 02:50 Hgb (11.4-16.0) gm/dL MCV (80.0-100.0) fL MCH (25.0-35.0) pg MCHC (31.0-37.0) g/dL RDW (11.5-15.5) % Plt Count (150-450) k/uL Sodium (137-145) mmol/L Potassium (3.5-5.1) mmol/L Carbon Dioxide (22-30) mmol/L Glucose (74-99) mg/dL POC Glucose (mg/dL) 266 H (70-110) mg/dL Plasma Lactic Acid Travon 2.3 H* (0.7-2.0) mmol/L Magnesium (1.6-2.3) mg/dL AST (14-36) U/L Alkaline Phosphatase (38-126) U/L Troponin I 0.853 H* (0.000-0.034) ng/mL Total Protein (6.3-8.2) g/dL Urine Appearance (Clear) Urine Protein (Negative) Urine Glucose (UA) (Negative) Ur Squamous Epith Cells (0-4) /hpf Urine Mucus (None) /hpf 12/11/21 12/11/21 12/11/21 Range/Units 06:52 09:00 12:12 Hgb (11.4-16.0) gm/dL MCV (80.0-100.0) fL MCH (25.0-35.0) pg MCHC (31.0-37.0) g/dL RDW (11.5-15.5) % Plt Count (150-450) k/uL Sodium (137-145) mmol/L Potassium (3.5-5.1) mmol/L Carbon Dioxide (22-30) mmol/L Glucose (74-99) mg/dL POC Glucose (mg/dL) 286 H 282 H (70-110) mg/dL Plasma Lactic Acid Travon (0.7-2.0) mmol/L Magnesium (1.6-2.3) mg/dL AST (14-36) U/L Alkaline Phosphatase (38-126) U/L Troponin I 0.600 H* (0.000-0.034) ng/mL Total Protein (6.3-8.2) g/dL Urine Appearance (Clear) Urine Protein (Negative) Urine Glucose (UA) (Negative) Ur Squamous Epith Cells (0-4) /hpf Urine Mucus (None) /hpf
[2021-12-11] MEDS: MAGNESIUM SULFATE-D5W PMX 1 GM in DEXTROSE/WATER 1 100ML.BAG IVPB SCH ×2 (14:42→16:10)
[2021-12-11] MEDS ORDERED: ATORVASTATIN 80 MG TAB PO SCH (21:00)
[2021-12-12] MEDS ORDERED: INSULIN DETEMIR (LEVEMIR) 100 UNIT/ML SYR SQ SCH (07:00)
[2021-12-12] MEDS ORDERED: ENOXAPARIN 40 MG/0.4 ML SYRINGE SQ SCH (09:00)
[2021-12-12] MEDS ORDERED: lisinopriL 20 MG TAB PO SCH (09:00)
== END 2021-12-11 18:30 | disposition home or self-care (01) | DRG 392 ==
LOC: EC 17:08 → 3SCARD 12-11 01:39
PROVIDERS: ADMIT Internal Medicine; ATTEND Internal Medicine
DX: K29.70 Gastritis, unspecified, without bleeding (principal); Z68.41 Body mass index [BMI] 40.0-44.9, adult; E87.1 Hypo-osmolality and hyponatremia; E83.42 Hypomagnesemia; E87.5 Hyperkalemia; R77.8 Other specified abnormalities of plasma proteins; K27.9 Peptic ulcer, site unspecified, unspecified as acute or chronic, without hemorrhage or perforation; E86.0 Dehydration; E11.65 Type 2 diabetes mellitus with hyperglycemia; E66.9 Obesity, unspecified; E78.1 Pure hyperglyceridemia; K21.9 Gastro-esophageal reflux disease without esophagitis; I10 Essential (primary) hypertension; G89.29 Other chronic pain; M54.50 Low back pain, unspecified; Z20.822 Contact with and (suspected) exposure to COVID-19; Z88.1 Allergy status to other antibiotic agents; Z87.440 Personal history of urinary (tract) infections; Z87.74 Personal history of (corrected) congenital malformations of heart and circulatory system; Z87.891 Personal history of nicotine dependence; Z79.899 Other long term (current) drug therapy; Z79.84 Long term (current) use of oral hypoglycemic drugs; Z79.4 Long term (current) use of insulin; Z87.19 Personal history of other diseases of the digestive system
CPT/HCPCS: 36415; 71046; 74177; 80053; 81001; 82009; 83605; 83735; 84132; 84484; 85025; 85610; 85730; 87635; 93005; 96365; 96366; 96368; 96375; 96376; 99285

== ENCOUNTER 2021-12-15 00:38 | Emergency (ER) | payer MEDICARE ==
[2021-12-15 00:52] VITALS: BP 132/79; PULSE 71; RESP 20; TEMP 98.6
[2021-12-15 01:04] LABS: Glucose,Whole Blood 419 mg/dL (70-110)
[2021-12-15] MEDS ORDERED: SODIUM CHLORIDE 0.9% 1,000 ML IV STA (01:37)
--- NOTE | 2021-12-15 01:48 | ED ---
General Adult HPI - General Source: patient, EMS, RN notes reviewed Mode of arrival: EMS Limitations: no limitations <Vinny Pascual - Last Filed: 12/15/21 03:02> <Hemanth Tobin - Last Filed: 12/15/21 04:36> - General Chief complaint: Recheck/Abnormal Lab/Rx Stated complaint: Pain, Sugar 558 Time Seen by Provider: 12/15/21 01:28 - History of Present Illness Initial comments: This is a pleasant 51-year-old female who presents to the nurse, complaining of generalized body aches and pain. Patient states that she also feels fatigued and has some burning with urination. Patient states she was seen here recently for low calcium and something else that was "high." Patient complains of nausea without vomiting. Patient denying any chest pain or shortness of breath. No headache, no fever or chills, no changes in vision or hearing, no sore throat or difficulty with speech, no neck pain, no chest pain or shortness of breath, no abdominal pain, no nausea or vomiting, no changes in bowel movements, no numbness or tingling, no extremity pain, no skin rashes or lesions. Past medical, surgical, social, and family history reviewed. (Vinny Pascual) - Related Data Home Medications Medication Instructions Recorded Confirmed Atorvastatin [Lipitor] 80 mg PO HS 06/25/19 12/11/21 lisinopriL 40 mg PO DAILY 09/24/20 12/11/21 metFORMIN HCL [Glucophage] 500 mg PO DAILY 09/24/20 12/11/21 traZODone HCL 50 - 100 mg PO HS PRN 01/11/21 12/11/21 Ergocalciferol (Vitamin D2) 1,250 mcg PO TU 03/03/21 12/11/21 [Drisdol (50,000 Iu)] Albuterol Inhaler [Ventolin Hfa 2 puff INHALATION RT-QID PRN 07/28/21 12/11/21 Inhaler] INSULIN ASPART (NovoLOG) [NovoLOG 18 unit SQ AC-TID 09/24/21 12/11/21 (formulary)] Previous Rx's Medication Instructions Recorded Fenofibrate [Lofibra] 160 mg PO DAILY #30 tab 03/23/19 Insulin Detemir (Levemir) [Levemir] 100 unit SQ DAILY@0700 30 Days #1 12/11/21 pen Pantoprazole [Protonix] 40 mg PO DAILY #14 tab 12/11/21 Allergies Allergy/AdvReac Type Severity Reaction Status Date / Time levofloxacin [From Levaquin] Allergy Rash/Hives Verified 12/15/21 00:52 Review of Systems ROS Other: All systems not noted in ROS Statement are negative. <AnkurVinny - Last Filed: 12/15/21 03:02> ROS Other: All systems not noted in ROS Statement are negative. <Hemanth Tobin - Last Filed: 12/15/21 04:36> ROS Statement: Those systems with pertinent positive or pertinent negative responses have been documented in the HPI. Past Medical History Past Medical History: Diabetes Mellitus, GERD/Reflux, Hyperlipidemia, Hypertension, Syncope Additional Past Medical History / Comment(s): Pt recently admitted to [facility] on 07/21/21 with uncontrolled IDDM and hyperkalemia. Other hx: Recurrent pancreatitis, hypertriglyceridemia, elevated lipase, IDDM type II, UTI, chronic low back pain, bulging discs, dental abscesses in past. History of Any Multi-Drug Resistant Organisms: None Reported Past Surgical History: Tubal Ligation Additional Past Surgical History / Comment(s): Age 7 had VSD repair Past Anesthesia/Blood Transfusion Reactions: No Reported Reaction Past Psychological History: No Psychological Hx Reported Smoking Status: Former smoker Past Alcohol Use History: None Reported Past Drug Use History: None Reported - Past Family History Mother Family Medical History: No Reported History Additional Family Medical History / Comment(s): Mother was healthy. She is , pt cannot recall cause of . Father Family Medical History: Pneumonia Additional Family Medical History / Comment(s): Father at the age of 67yrs from pneumonia <Vinny Pascual - Last Filed: 12/15/21 03:02> General Exam Limitations: no limitations General appearance: obese Head exam: Present: atraumatic, normocephalic, normal inspection Eye exam: Present: normal appearance, PERRL, EOMI. Absent: scleral icterus, conjunctival injection, periorbital swelling ENT exam: Present: normal exam, mucous membranes moist Neck exam: Present: normal inspection. Absent: tenderness, meningismus, lymphadenopathy Respiratory exam: Present: normal lung sounds bilaterally. Absent: respiratory distress, wheezes, rales, rhonchi, stridor Cardiovascular Exam: Present: regular rate, normal rhythm, normal heart sounds. Absent: systolic murmur, diastolic murmur, rubs, gallop, clicks GI/Abdominal exam: Present: soft, normal bowel sounds. Absent: distended, tenderness, guarding, rebound, rigid Extremities exam: Present: normal inspection, full ROM, normal capillary refill. Absent: tenderness, pedal edema, joint swelling, calf tenderness Back exam: Present: normal inspection Neurological exam: Present: alert, oriented X3, CN II-XII intact Psychiatric exam: Present: normal affect, normal mood Skin exam: Present: warm, dry, intact, normal color. Absent: rash <Vinny Pascual - Last Filed: 12/15/21 03:02> General appearance: alert, in no apparent distress Head exam: Present: atraumatic, normocephalic, normal inspection Eye exam: Present: normal appearance, PERRL, EOMI. Absent: scleral icterus, conjunctival injection, periorbital swelling ENT exam: Present: normal exam, mucous membranes moist Neck exam: Present: normal inspection. Absent: tenderness, meningismus, lymphadenopathy Respiratory exam: Present: normal lung sounds bilaterally. Absent: respiratory distress, wheezes, rales, rhonchi, stridor Cardiovascular Exam: Present: regular rate, normal rhythm, normal heart sounds. Absent: systolic murmur, diastolic murmur, rubs, gallop, clicks GI/Abdominal exam: Present: soft, normal bowel sounds. Absent: distended, tenderness, guarding, rebound, rigid Extremities exam: Present: normal inspection, full ROM, normal capillary refill. Absent: tenderness, pedal edema, joint swelling, calf tenderness Back exam: Present: normal inspection Neurological exam: Present: alert, oriented X3, CN II-XII intact Psychiatric exam: Present: normal affect, normal mood Skin exam: Present: warm, dry, intact, normal color. Absent: rash <Hemanth Tobin - Last Filed: 12/15/21 04:36> - General Exam Comments Initial Comments: Assessment stable, patient afebrile. Patient does not appear to be ill or toxic. Appears to be adequately hydrated. (Vinny Pascual) Course <Hemanth Tobin - Last Filed: 12/15/21 04:36> Vital Signs 12/15/21 00:47 Temperature 98.6 F Pulse Rate 71 Respiratory 20 Rate Blood Pressure 132/79 O2 Sat by Pulse 99 Oximetry - Reevaluation(s) Reevaluation #1: 12/15/21 04:35 Record is reviewed (Hemanth Tobin) Reevaluation #2: 12/15/21 04:35 Patient without chest pain or shortness of breath (Hemanth Tobin) Reevaluation #3: 12/15/21 04:35 Patient informed of results and questions are answered (Hemanth Tobin) EKG Findings - EKG Comments: EKG Findings:: EKG is sinus rhythm 75 UT 150 QRS 78 QTc 460 <Hemanth Tobin - Last Filed: 12/15/21 04:36> Medical Decision Making <Vinny Pascual - Last Filed: 12/15/21 03:02> - Lab Data Result diagrams: 12/15/21 02:32 12/15/21 02:32 - Radiology Data Radiology results: report reviewed (Chest x-ray is negative for acute disease), image reviewed <Hemanth Tobin - Last Filed: 12/15/21 04:36> - Medical Decision Making On December 10 patient had a potassium of 6.0 and magnesium 1.5. Calcium was actually normal. Patient did have elevated troponin with nondiagnostic EKG changes. These were downtrending. Patient was seen by cardiology on December 11 are to discharge. Patient endorsed to the ED supervising physician, Dr. Tobin, for further evaluation and disposition. (Vinny Pascual) 51-year-old female well-known to our emergency room, still with downtrending troponin came in with multiple nonspecific symptoms. Lab values recurrent transient with her normal testing. Patient can be discharged home (Hemanth Tobin) - Lab Data Lab Results 12/15/21 12/15/21 12/15/21 Range/Units 00:59 02:10 02:32 WBC 7.5 (3.8-10.6) k/uL RBC 4.70 (3.80-5.40) m/uL Hgb 10.5 L (11.4-16.0) gm/dL Hct 34.8 (34.0-46.0) % MCV 74.0 L (80.0-100.0) fL MCH 22.3 L (25.0-35.0) pg MCHC 30.1 L (31.0-37.0) g/dL RDW 18.6 H (11.5-15.5) % Plt Count (150-450) k/uL MPV 7.2 Neutrophils % 58 % Lymphocytes % 33 % Monocytes % 5 % Eosinophils % 2 % Basophils % 1 % Neutrophils # 4.3 (1.3-7.7) k/uL Lymphocytes # 2.5 (1.0-4.8) k/uL Monocytes # 0.4 (0-1.0) k/uL Eosinophils # 0.2 (0-0.7) k/uL Basophils # 0.0 (0-0.2) k/uL Manual Slide Review Performed Hypochromasia Marked Anisocytosis Slight Microcytosis Moderate PT (9.0-12.0) sec INR (<1.2) APTT (22.0-30.0) sec VBG pH 7.37 (7.31-7.41) VBG pCO2 43 (37-51) mmHg VBG HCO3 25 (24-28) mmol/L Sodium (137-145) mmol/L Potassium (3.5-5.1) mmol/L Chloride (98-107) mmol/L Carbon Dioxide (22-30) mmol/L Anion Gap mmol/L BUN (7-17) mg/dL Creatinine (0.52-1.04) mg/dL Est GFR (CKD-EPI)AfAm (>60 ml/min/1.73 sqM) Est GFR (CKD-EPI)NonAf (>60 ml/min/1.73 sqM) Glucose (74-99) mg/dL POC Glucose (mg/dL) 419 H (70-110) mg/dL POC Glu [employer] ID Pool Bhandari Calcium (8.4-10.2) mg/dL Ionized Calcium Joseph (4.5-5.3) mg/dL Phosphorus (2.5-4.5) mg/dL Magnesium (1.6-2.3) mg/dL Total Bilirubin (0.2-1.3) mg/dL AST (14-36) U/L ALT (4-34) U/L Alkaline Phosphatase (38-126) U/L Troponin I (0.000-0.034) ng/mL Total Protein (6.3-8.2) g/dL Albumin (3.5-5.0) g/dL Urine Color Urine Appearance (Clear) Urine pH (5.0-8.0) Ur Specific [place] (1.001-1.035) Urine Protein (Negative) Urine Glucose (UA) (Negative) Urine Ketones (Negative) Urine Blood (Negative) Urine Nitrite (Negative) Urine Bilirubin (Negative) Urine Urobilinogen (<2.0) mg/dL Ur Leukocyte Esterase (Negative) Urine RBC (0-5) /hpf Urine WBC (0-5) /hpf Ur Squamous Epith Cells (0-4) /hpf Urine Mucus (None) /hpf Acetone, Qual (Negative) 12/15/21 12/15/21 12/15/21 Range/Units 02:32 02:32 02:32 WBC (3.8-10.6) k/uL RBC (3.80-5.40) m/uL Hgb (11.4-16.0) gm/dL Hct (34.0-46.0) % MCV (80.0-100.0) fL MCH (25.0-35.0) pg MCHC (31.0-37.0) g/dL RDW (11.5-15.5) % Plt Count (150-450) k/uL MPV Neutrophils % % Lymphocytes % % Monocytes % % Eosinophils % % Basophils % % Neutrophils # (1.3-7.7) k/uL Lymphocytes # (1.0-4.8) k/uL Monocytes # (0-1.0) k/uL Eosinophils # (0-0.7) k/uL Basophils # (0-0.2) k/uL Manual Slide Review Hypochromasia Anisocytosis Microcytosis PT 10.3 (9.0-12.0) sec INR 0.9 (<1.2) APTT 17.7 L (22.0-30.0) sec VBG pH (7.31-7.41) VBG pCO2 (37-51) mmHg VBG HCO3 (24-28) mmol/L Sodium 133 L (137-145) mmol/L Potassium 4.8 (3.5-5.1) mmol/L Chloride 98 (98-107) mmol/L Carbon Dioxide 20 L (22-30) mmol/L Anion Gap 15 mmol/L BUN 15 (7-17) mg/dL Creatinine 0.74 (0.52-1.04) mg/dL Est GFR (CKD-EPI)AfAm >90 (>60 ml/min/1.73 sqM) Est GFR (CKD-EPI)NonAf >90 (>60 ml/min/1.73 sqM) Glucose 469 H (74-99) mg/dL POC Glucose (mg/dL) (70-110) mg/dL POC Glu [employer] Driver ID Calcium 9.1 (8.4-10.2) mg/dL Ionized Calcium Joseph 4.6 (4.5-5.3) mg/dL Phosphorus 4.3 (2.5-4.5) mg/dL Magnesium 1.3 L (1.6-2.3) mg/dL Total Bilirubin 0.4 (0.2-1.3) mg/dL AST 36 (14-36) U/L ALT 22 (4-34) U/L Alkaline Phosphatase 115 (38-126) U/L Troponin I 0.119 H* (0.000-0.034) ng/mL Total Protein 6.7 (6.3-8.2) g/dL Albumin 3.8 (3.5-5.0) g/dL Urine Color Urine Appearance (Clear) Urine pH (5.0-8.0) Ur Specific [place] (1.001-1.035) Urine Protein (Negative) Urine Glucose (UA) (Negative) Urine Ketones (Negative) Urine Blood (Negative) Urine Nitrite (Negative) Urine Bilirubin (Negative) Urine Urobilinogen (<2.0) mg/dL Ur Leukocyte Esterase (Negative) Urine RBC (0-5) /hpf Urine WBC (0-5) /hpf Ur Squamous Epith Cells (0-4) /hpf Urine Mucus (None) /hpf Acetone, Qual Negative (Negative) 12/15/21 Range/Units 02:52 WBC (3.8-10.6) k/uL RBC (3.80-5.40) m/uL Hgb (11.4-16.0) gm/dL Hct (34.0-46.0) % MCV (80.0-100.0) fL MCH (25.0-35.0) pg MCHC (31.0-37.0) g/dL RDW (11.5-15.5) % Plt Count (150-450) k/uL MPV Neutrophils % % Lymphocytes % % Monocytes % % Eosinophils % % Basophils % % Neutrophils # (1.3-7.7) k/uL Lymphocytes # (1.0-4.8) k/uL Monocytes # (0-1.0) k/uL Eosinophils # (0-0.7) k/uL Basophils # (0-0.2) k/uL Manual Slide Review Hypochromasia Anisocytosis Microcytosis PT (9.0-12.0) sec INR (<1.2) APTT (22.0-30.0) sec VBG pH (7.31-7.41) VBG pCO2 (37-51) mmHg VBG HCO3 (24-28) mmol/L Sodium (137-145) mmol/L Potassium (3.5-5.1) mmol/L Chloride (98-107) mmol/L Carbon Dioxide (22-30) mmol/L Anion Gap mmol/L BUN (7-17) mg/dL Creatinine (0.52-1.04) mg/dL Est GFR (CKD-EPI)AfAm (>60 ml/min/1.73 sqM) Est GFR (CKD-EPI)NonAf (>60 ml/min/1.73 sqM) Glucose (74-99) mg/dL POC Glucose (mg/dL) (70-110) mg/dL POC Glu [employer] Driver ID Calcium (8.4-10.2) mg/dL Ionized Calcium Joseph (4.5-5.3) mg/dL Phosphorus (2.5-4.5) mg/dL Magnesium (1.6-2.3) mg/dL Total Bilirubin (0.2-1.3) mg/dL AST (14-36) U/L ALT (4-34) U/L Alkaline Phosphatase (38-126) U/L Troponin I (0.000-0.034) ng/mL Total Protein (6.3-8.2) g/dL Albumin (3.5-5.0) g/dL Urine Color Light Yellow Urine Appearance Clear (Clear) Urine pH 5.5 (5.0-8.0) Ur Specific [place] 1.018 (1.001-1.035) Urine Protein 1+ H (Negative) Urine Glucose (UA) 4+ H (Negative) Urine Ketones Negative (Negative) Urine Blood Negative (Negative) Urine Nitrite Negative (Negative) Urine Bilirubin Negative (Negative) Urine Urobilinogen <2.0 (<2.0) mg/dL Ur Leukocyte Esterase Negative (Negative) Urine RBC <1 (0-5) /hpf Urine WBC 2 (0-5) /hpf Ur Squamous Epith Cells 2 (0-4) /hpf Urine Mucus Rare H (None) /hpf Acetone, Qual (Negative) Disposition <Vinny Pascual - Last Filed: 12/15/21 03:02> Is patient prescribed a controlled substance at d/c from ED?: No Time of Disposition: 04:35 <Hemanth Tobin - Last Filed: 12/15/21 04:36> Clinical Impression: Weakness, Hypomagnesemia Disposition: HOME SELF-CARE Condition: Good Instructions (If sedation given, give patient instructions): Weakness (ED) Referrals: Guillermo Cerda MD [Primary Care Provider] - 1-2 days
[2021-12-15] MEDS ORDERED: KETOROLAC 15 MG/ML 1 ML VIAL IVP STA (02:36)
[2021-12-15 02:56] LABS: Anisocytosis Slight; Basophils % (A) 1 %; Eosinophils # (A) 0.2 k/uL (0-0.7); Eosinophils % (A) 2 %; HCT 34.8 % (34.0-46.0); HGB 10.5 gm/dL (11.4-16.0); Hypochromasia Marked; Lymphocytes # (A) 2.5 k/uL (1.0-4.8); Lymphocytes % (A) 33 %; MCH 22.3 pg (25.0-35.0); MCHC 30.1 g/dL (31.0-37.0); Mean Platelet Volume 7.2; Microcytosis Moderate; Monocytes # (A) 0.4 k/uL (0-1.0); Monocytes % (A) 5 %; Neutrophils # (A) 4.3 k/uL (1.3-7.7); Neutrophils % (A) 58 %; RDW 18.6 % (11.5-15.5); WBC 7.5 k/uL (3.8-10.6)
[2021-12-15 03:16] LABS: INR 0.9 (<1.2); Prothrombin Time 10.3 sec (9.0-12.0)
[2021-12-15 03:18] LABS: VBG PH 7.37 (7.31-7.41)
[2021-12-15 03:20] LABS: Partial Thromboplastin Time 17.7 sec (22.0-30.0)
[2021-12-15 03:25] LABS: Ionized Calcium 4.6 mg/dL (4.5-5.3)
[2021-12-15] MEDS ORDERED: INSULIN REGULAR 100 UNIT/ML VIAL (IV) IV ONE (03:27)
[2021-12-15 03:36] LABS: ALT 22 U/L (4-34); African American GFR (CKD) >90 (>60 ml/min/1.73 sqM); Albumin 3.8 g/dL (3.5-5.0); Anion Gap 15 mmol/L; Blood Urea Nitrogen 15 mg/dL (7-17); Calcium 9.1 mg/dL (8.4-10.2); Carbon Dioxide 20 mmol/L (22-30); Chloride 98 mmol/L (98-107); Glucose 469 mg/dL (74-99); Non-African American GFR(CKD) >90 (>60 ml/min/1.73 sqM); Sodium 133 mmol/L (137-145); Total Bilirubin 0.4 mg/dL (0.2-1.3); Total Protein 6.7 g/dL (6.3-8.2)
--- NOTE | 2021-12-15 03:51 | XR ---
EXAMINATION TYPE: XR chest 2V DATE OF EXAM: 12/15/2021 COMPARISON: 12/11/2021 HISTORY: Weakness TECHNIQUE: FINDINGS: There is no heart failure. There are small poorly marginated infiltrates in the left midlun g. These measure up to 1 cm. Right lung is clear. No pleural effusion. IMPRESSION: Minimal infiltrate in the left mid lung without change. There is overall improvement comp ared to older exam of 2521. No heart failure. Normal heart
[2021-12-15 03:53] LABS: AST 36 U/L (14-36); Alkaline Phosphatase 115 U/L (38-126); Magnesium 1.3 mg/dL (1.6-2.3); Phosphorus 4.3 mg/dL (2.5-4.5); Potassium 4.8 mmol/L (3.5-5.1)
[2021-12-15 03:54] LABS: Appearance,Urine Clear (Clear); Bilirubin,Urine Negative (Negative); Blood,Urine Negative (Negative); Color,Urine Light Yellow; Glucose,Urine (UA) 4+ (Negative); Ketones,Urine Negative (Negative); Leukocyte Esterase,Urine Negative (Negative); Mucus,Urine Rare /hpf; Nitrite,Urine Negative (Negative); PH, Urine 5.5 (5.0-8.0); Protein,Urine 1+ (Negative); RBC,Urine <1 /hpf (0-5); Specific Gravity,Urine 1.018 (1.001-1.035); Squamous Epithelial Cell,Urine 2 /hpf (0-4); Urobilinogen,Urine <2.0 mg/dL (<2.0); WBC,Urine 2 /hpf (0-5)
[2021-12-15] MEDS ORDERED: MAGNESIUM OXIDE 400 MG TAB PO STA ×2 (04:37)
== END 2021-12-15 04:53 | disposition home or self-care (01) ==
LOC: EC 00:38
DX: E83.42 Hypomagnesemia (principal); R53.1 Weakness; E11.9 Type 2 diabetes mellitus without complications; I10 Essential (primary) hypertension; Z87.891 Personal history of nicotine dependence; Z79.84 Long term (current) use of oral hypoglycemic drugs; Z79.899 Other long term (current) drug therapy; Z79.4 Long term (current) use of insulin; Z88.1 Allergy status to other antibiotic agents
CPT/HCPCS: 36415; 80053; 82330; 82803; 82009; 83735; 84100; 84484; 85025; 85610; 85730; 81001; 71046; 99285; 96374; 96375; 96361; J1885

== ENCOUNTER 2021-12-21 17:32 | Inpatient (IN) | payer MEDICARE ==
[2021-12-21] MEDS ORDERED: Potassium Replacement Protocol 1 EACH MISC MISCELLANE PRN (17:46)
[2021-12-21] MEDS ORDERED: INSULIN REGULAR BOLUS (FROM DRIP BAG) IV ONE (17:46)
[2021-12-21] MEDS ORDERED: Magnesium Replacement Protocol 1 EACH MISC MISCELLANE PRN (17:46)
[2021-12-21] MEDS ORDERED: ONDANSETRON 4 MG/2 ML VIAL IVP STA (17:48)
[2021-12-21] MEDS ORDERED: SODIUM CHLORIDE 0.9% 500 ML 500 ML IV ONE (17:48)
[2021-12-21] MEDS ORDERED: SODIUM CHLORIDE 0.9% 1,000 ML IV ONE (17:48)
--- NOTE | 2021-12-21 17:53 | ED ---
General Adult HPI - General Stated complaint: Diarrhea,nausea,high blood suger Time Seen by Provider: 12/21/21 17:32 Source: patient, RN notes reviewed, old records reviewed - History of Present Illness Initial comments: Is a 51-year-old female who presents to the emergency department stating that she is a diabetic and does take her insulin regularly. Patient states she's been vomiting for the last 2 days and her sugars been high but when EMS arrived it was over 600 and she stated she hadn't been that high. Patient denies any chest pain difficulty breathing shortest breath per patient denies any fever chills or cough. Patient denies abdominal pain patient denies nausea vomiting diarrhea. Patient denies headache patient denies numbness weakness. Patient denies lightheadedness or dizziness. - Related Data Home Medications Medication Instructions Recorded Confirmed Atorvastatin [Lipitor] 80 mg PO HS 06/25/19 12/21/21 lisinopriL 40 mg PO DAILY 09/24/20 12/21/21 metFORMIN HCL [Glucophage] 500 mg PO DAILY 09/24/20 12/21/21 traZODone HCL 50 - 100 mg PO HS PRN 01/11/21 12/21/21 Ergocalciferol (Vitamin D2) 1,250 mcg PO TU 03/03/21 12/21/21 [Drisdol (50,000 Iu)] Albuterol Inhaler [Ventolin Hfa 2 puff INHALATION RT-QID PRN 07/28/21 12/21/21 Inhaler] INSULIN ASPART (NovoLOG) [NovoLOG 18 unit SQ AC-TID 09/24/21 12/21/21 (formulary)] Previous Rx's Medication Instructions Recorded Fenofibrate [Lofibra] 160 mg PO DAILY #30 tab 03/23/19 Insulin Detemir (Levemir) [Levemir] 100 unit SQ DAILY@0700 30 Days #1 12/11/21 pen Pantoprazole [Protonix] 40 mg PO DAILY #14 tab 12/11/21 Allergies Allergy/AdvReac Type Severity Reaction Status Date / Time levofloxacin [From Levaquin] Allergy Rash/Hives Verified 12/21/21 18:15 Review of Systems ROS Statement: Those systems with pertinent positive or pertinent negative responses have been documented in the HPI. ROS Other: All systems not noted in ROS Statement are negative. Past Medical History Past Medical History: Diabetes Mellitus, GERD/Reflux, Hyperlipidemia, Hypertension, Syncope Additional Past Medical History / Comment(s): Pt recently admitted to [facility] on 07/21/21 with uncontrolled IDDM and hyperkalemia. Other hx: Recurrent pancreatitis, hypertriglyceridemia, elevated lipase, IDDM type II, UTI, chronic low back pain, bulging discs, dental abscesses in past. History of Any Multi-Drug Resistant Organisms: None Reported Past Surgical History: Tubal Ligation Additional Past Surgical History / Comment(s): Age 7 had VSD repair Past Anesthesia/Blood Transfusion Reactions: No Reported Reaction Past Psychological History: No Psychological Hx Reported Smoking Status: Former smoker Past Alcohol Use History: None Reported Past Drug Use History: None Reported - Past Family History Mother Family Medical History: No Reported History Additional Family Medical History / Comment(s): Mother was healthy. She is de ceased, pt cannot recall cause of . Father Family Medical History: Pneumonia Additional Family Medical History / Comment(s): Father at the age of 67yrs from pneumonia General Exam - General Exam Comments Initial Comments: GENERAL: Patient is well-developed and well-nourished. Patient is nontoxic and well- hydrated and is in mild to distress. ENT: Neck is soft and supple. No significant lymphadenopathy is noted. Oropharynx is clear. Moist mucous membranes. Neck has full range of motion without eliciting any pain. EYES: The sclera were anicteric and conjunctiva were pink and moist. Extraocular movements were intact and pupils were equal round and reactive to light. Eyelids were unremarkable. PULMONARY: Unlabored respirations. Good breath sounds bilaterally. No audible rales rhonchi or wheezing was noted. CARDIOVASCULAR: There is a regular rate and rhythm without any murmurs gallops or rubs. ABDOMEN: Soft and nontender with normal bowel sounds. SKIN: Skin is clear with no lesions or rashes and otherwise unremarkable. NEUROLOGIC: Patient is alert and oriented x3. Cranial nerves II through XII are grossly intact. Motor and sensory are also intact. Normal speech, volume and content. Symmetrical smile. MUSCULOSKELETAL: Normal extremities with adequate strength and full range of motion. LYMPHATICS: No significant lymphadenopathy is noted PSYCHIATRIC: Normal psychiatric evaluation. Course Vital Signs 12/21/21 17:50 Temperature 99.6 F Pulse Rate 75 Respiratory 20 Rate Blood Pressure 174/84 O2 Sat by Pulse 97 Oximetry Medical Decision Making - Medical Decision Making EKG shows sinus rhythm at 76 bpm DC interval is on a 55 QRSs 89 Q-T intervals 340 QTC is 379. Patient's EKG shows no ST segment elevation or depression. Patient does have some T-wave inversions in precordial leads V3 through V6. As well as lateral leads 1 and aVL Patient received 10 of NovoLog and her sugar did not drop below 400 so at this point time I spoke with Dr. Torres and he agreed to admit the patient admitted the patient wrote admitting orders. - Lab Data Result diagrams: 12/21/21 17:54 12/21/21 17:54 Lab Results 12/21/21 12/21/21 12/21/21 Range/Units 17:54 17:54 18:01 WBC 9.7 (3.8-10.6) k/uL RBC 4.81 (3.80-5.40) m/uL Hgb 10.1 L (11.4-16.0) gm/dL Hct 36.1 (34.0-46.0) % MCV 75.0 L (80.0-100.0) fL MCH 20.9 L (25.0-35.0) pg MCHC 27.9 L (31.0-37.0) g/dL RDW 18.4 H (11.5-15.5) % Plt Count 589 H (150-450) k/uL MPV 6.8 Neutrophils % 73 % Lymphocytes % 19 % Monocytes % 4 % Eosinophils % 2 % Basophils % 1 % Neutrophils # 7.0 (1.3-7.7) k/uL Lymphocytes # 1.8 (1.0-4.8) k/uL Monocytes # 0.4 (0-1.0) k/uL Eosinophils # 0.2 (0-0.7) k/uL Basophils # 0.1 (0-0.2) k/uL Hypochromasia Marked Anisocytosis Slight Microcytosis Moderate VBG pH (7.31-7.41) VBG pCO2 (37-51) mmHg VBG HCO3 (24-28) mmol/L Sodium 134 L (137-145) mmol/L Potassium 4.0 (3.5-5.1) mmol/L Chloride 97 L (98-107) mmol/L Carbon Dioxide 21 L (22-30) mmol/L Anion Gap 16 mmol/L BUN 15 (7-17) mg/dL Creatinine 0.75 (0.52-1.04) mg/dL Est GFR (CKD-EPI)AfAm >90 (>60 ml/min/1.73 sqM) Est GFR (CKD-EPI)NonAf >90 (>60 ml/min/1.73 sqM) Glucose 590 H* (74-99) mg/dL POC Glucose (mg/dL) 537 H (70-110) mg/dL POC Glu [employer] Artistic Director ID Diya Irwin Acetone, Qual Negative (Negative) 12/21/21 12/21/21 12/21/21 Range/Units 18:04 19:46 20:53 WBC (3.8-10.6) k/uL RBC (3.80-5.40) m/uL Hgb (11.4-16.0) gm/dL Hct (34.0-46.0) % MCV (80.0-100.0) fL MCH (25.0-35.0) pg MCHC (31.0-37.0) g/dL RDW (11.5-15.5) % Plt Count (150-450) k/uL MPV Neutrophils % % Lymphocytes % % Monocytes % % Eosinophils % % Basophils % % Neutrophils # (1.3-7.7) k/uL Lymphocytes # (1.0-4.8) k/uL Monocytes # (0-1.0) k/uL Eosinophils # (0-0.7) k/uL Basophils # (0-0.2) k/uL Hypochromasia Anisocytosis Microcytosis VBG pH 7.38 (7.31-7.41) VBG pCO2 39 (37-51) mmHg VBG HCO3 23 L (24-28) mmol/L Sodium (137-145) mmol/L Potassium (3.5-5.1) mmol/L Chloride (98-107) mmol/L Carbon Dioxide (22-30) mmol/L Anion Gap mmol/L BUN (7-17) mg/dL Creatinine (0.52-1.04) mg/dL Est GFR (CKD-EPI)AfAm (>60 ml/min/1.73 sqM) Est GFR (CKD-EPI)NonAf (>60 ml/min/1.73 sqM) Glucose (74-99) mg/dL POC Glucose (mg/dL) 447 H 408 H (70-110) mg/dL POC Glu [employer] Artistic Director ID Samantha Belle Kristi Acetone, Qual (Negative) Disposition Clinical Impression: Acute vomiting, Hyperglycemia Disposition: ADMITTED IP TO THIS HOSP Referrals: Guillermo Cerda MD [Primary Care Provider] - 1-2 days Time of Disposition: 21:30
[2021-12-21 18:13] LABS: Glucose,Whole Blood 537 mg/dL (70-110)
[2021-12-21 18:16] LABS: Anisocytosis Slight; Basophils # (A) 0.1 k/uL (0-0.2); Basophils % (A) 1 %; Eosinophils # (A) 0.2 k/uL (0-0.7); Eosinophils % (A) 2 %; HCT 36.1 % (34.0-46.0); HGB 10.1 gm/dL (11.4-16.0); Hypochromasia Marked; Lymphocytes # (A) 1.8 k/uL (1.0-4.8); Lymphocytes % (A) 19 %; MCH 20.9 pg (25.0-35.0); MCHC 27.9 g/dL (31.0-37.0); Mean Platelet Volume 6.8; Microcytosis Moderate; Monocytes # (A) 0.4 k/uL (0-1.0); Monocytes % (A) 4 %; Neutrophils % (A) 73 %; Platelet Count 589 k/uL (150-450); RBC 4.81 m/uL (3.80-5.40); RDW 18.4 % (11.5-15.5); WBC 9.7 k/uL (3.8-10.6)
[2021-12-21 18:21] LABS: VBG PH 7.38 (7.31-7.41)
[2021-12-21 18:26] LABS: African American GFR (CKD) >90 (>60 ml/min/1.73 sqM); Anion Gap 16 mmol/L; Blood Urea Nitrogen 15 mg/dL (7-17); Carbon Dioxide 21 mmol/L (22-30); Chloride 97 mmol/L (98-107); Non-African American GFR(CKD) >90 (>60 ml/min/1.73 sqM); Sodium 134 mmol/L (137-145)
[2021-12-21 18:27] LABS: Glucose 590 mg/dL (74-99)
[2021-12-21] MEDS: SODIUM CHLORIDE 0.9% 1,000 ML IV SCH (18:33)
[2021-12-21] MEDS ORDERED: INSULIN REGULAR 100 UNIT in SODIUM CHLORIDE 0.9% 100 ML IV SCH (19:00)
[2021-12-21 19:47] LABS: Glucose,Whole Blood 447 mg/dL (70-110)
[2021-12-21] MEDS ORDERED: INSULIN ASPART (NovoLOG) 100 UNIT/ML VIAL SQ ONE (19:50)
[2021-12-21] MEDS ORDERED: KETOROLAC 15 MG/ML 1 ML VIAL IVP STA (20:18)
[2021-12-21 20:54] LABS: Glucose,Whole Blood 408 mg/dL (70-110)
[2021-12-21 21:29] LABS: Glucose,Whole Blood 465 mg/dL (70-110)
[2021-12-21 22:15] LABS: Glucose,Whole Blood 407 mg/dL (70-110)
[2021-12-22 02:11] LABS: Glucose,Whole Blood 367 mg/dL (70-110)
[2021-12-22] MEDS ORDERED: DEXTROSE 50% SYRINGE 50 ML IVP PRN ×2 (02:36)
[2021-12-22 04:00] LABS: Glucose,Whole Blood 401 mg/dL (70-110)
[2021-12-22] MEDS ORDERED: ALBUTEROL NEBULIZED 2.5 MG/3 ML INHALATION PRN (04:36)
[2021-12-22] MEDS ORDERED: INSULIN ASPART (NovoLOG) 100 UNIT/ML VIAL SQ ONE (04:36)
[2021-12-22] MEDS: ACETAMINOPHEN TAB 325 MG TAB PO PRN ×3 (05:18→22:07)
[2021-12-22] MEDS: SODIUM CHLORIDE 0.9% 1,000 ML IV SCH ×5 (05:24→23:54)
[2021-12-22 07:22] LABS: Glucose,Whole Blood 334 mg/dL (70-110)
[2021-12-22] MEDS: INSULIN ASPART (NovoLOG) 100 UNIT/ML VIAL SQ SCH ×7 (07:50→21:33)
[2021-12-22] MEDS: PANTOPRAZOLE 40 MG TABLET PO SCH (07:50)
[2021-12-22] MEDS: lisinopriL 20 MG TAB PO SCH (07:51)
[2021-12-22] MEDS: INSULIN DETEMIR (LEVEMIR) 100 UNIT/ML SYR SQ SCH (07:51)
[2021-12-22] MEDS: metFORMIN 500 MG TAB PO SCH (07:51)
[2021-12-22] MEDS: FENOFIBRATE 160 MG TAB PO SCH (09:11)
[2021-12-22 12:09] LABS: Glucose,Whole Blood 155 mg/dL (70-110)
[2021-12-22 15:34] VITALS: BMI 40.0
[2021-12-22 17:23] LABS: Glucose,Whole Blood 148 mg/dL (70-110)
[2021-12-22 20:36] LABS: Glucose,Whole Blood 252 mg/dL (70-110)
[2021-12-22] MEDS: ATORVASTATIN 80 MG TAB PO SCH (21:32)
--- NOTE | 2021-12-23 04:19 | HP ---
HISTORY AND PHYSICAL CHIEF COMPLAINT: Intractable nausea and vomiting and hyperglycemia. HISTORY OF PRESENT ILLNESS: This is another recent admission for this 51-year-old white female, who was in the hospital, almost incessantly lately. For sure, she does not take her insulin. She comes to the emergency room with a blood sugar over 600 . She also has a history of hypertriglyceridemia and pancreatitis. REVIEW OF SYSTEMS: She has had no headaches, chest pain, hematemesis, melena, urinary complaints, etc. Past medical history, family history, personal and social histories were otherwise unremarkable and unchanged from her recent admitting and discharge summaries. She was in the hospital recently with an NSTEMI. The remainder of her history is unremarkable. She is supposed to be on: 1. Levemir 100 units once a day. 2. NovoLog before meals. PHYSICAL EXAMINATION: VITAL SIGNS: Blood pressure is 136/72 with a pulse of 94, respirations of 35, and she is afebrile. GENERAL: She appeared to be obese and dehydrated. HEAD, EARS, EYES, NOSE, MOUTH AND THROAT: Normal. NECK: Neck veins are not distended. CHEST: Clear. CARDIAC: Normal except for tachycardia. ABDOMEN: Protuberant, soft, and nontender. Bowel sounds present. EXTREMITIES: Normal. NEUROLOGICAL: She is intact. ASSESSMENT: She is admitted to the hospital with diagnoses: 1. Intractable nausea and vomiting. 2. Uncontrolled diabetes mellitus due to noncompliance. 3. Hypertriglyceridemia. 4. Chronic relapsing pancreatitis. 5. Obesity. 6. Depression. PLAN: 1. Bedrest. 2. IV fluids. 3. Control blood sugars. 4. Antiemetics. MMODL / IJN: [id number] /
[2021-12-23] MEDS: SODIUM CHLORIDE 0.9% 1,000 ML IV SCH ×4 (06:02→22:01)
[2021-12-23 07:00] LABS: Glucose,Whole Blood 251 mg/dL (70-110)
[2021-12-23] MEDS: INSULIN DETEMIR (LEVEMIR) 100 UNIT/ML SYR SQ SCH (08:06)
[2021-12-23] MEDS: metFORMIN 500 MG TAB PO SCH (08:06)
[2021-12-23] MEDS: FENOFIBRATE 160 MG TAB PO SCH (08:06)
[2021-12-23] MEDS: lisinopriL 20 MG TAB PO SCH (08:06)
[2021-12-23] MEDS: PANTOPRAZOLE 40 MG TABLET PO SCH (08:06)
[2021-12-23] MEDS: INSULIN ASPART (NovoLOG) 100 UNIT/ML VIAL SQ SCH ×7 (08:09→21:34)
[2021-12-23 12:43] LABS: Glucose,Whole Blood 169 mg/dL (70-110)
[2021-12-23] MEDS: ACETAMINOPHEN TAB 325 MG TAB PO PRN ×2 (13:19→22:24)
--- NOTE | 2021-12-23 16:38 | PN ---
PROGRESS NOTE CHIEF COMPLAINT: Uncontrolled diabetes and nausea and vomiting. HISTORY OF PRESENT ILLNESS: This lady's blood sugars are coming down. The vomiting is improved and nearly stopped. She is complaining of abdominal pain. PHYSICAL EXAMINATION: CHEST: Clear. CARDIAC: Normal. ABDOMEN: Soft and nontender. VITAL SIGNS: Normal. IMPRESSION: 1. Nausea and vomiting. 2. Dehydration. 3. Noncompliant patient. 4. Uncontrolled diabetes. 5. Hypertriglyceridemia. 6. Pancreatitis. 7. Depression. 8. Abdominal pain. PLAN: Continue with IV fluids and further management of her diabetes. MMODL / IJN: [id number] /
[2021-12-23 17:12] LABS: Glucose,Whole Blood 247 mg/dL (70-110)
[2021-12-23 20:28] LABS: Glucose,Whole Blood 210 mg/dL (70-110)
[2021-12-23] MEDS: ATORVASTATIN 80 MG TAB PO SCH (21:34)
[2021-12-24] MEDS: SODIUM CHLORIDE 0.9% 1,000 ML IV SCH ×3 (05:16→07:45)
[2021-12-24 06:54] LABS: Glucose,Whole Blood 214 mg/dL (70-110)
[2021-12-24] MEDS: PANTOPRAZOLE 40 MG TABLET PO SCH (07:47)
[2021-12-24] MEDS: lisinopriL 20 MG TAB PO SCH (07:48)
[2021-12-24] MEDS: FENOFIBRATE 160 MG TAB PO SCH (07:48)
[2021-12-24] MEDS: ACETAMINOPHEN TAB 325 MG TAB PO PRN (07:50)
[2021-12-24] MEDS: metFORMIN 500 MG TAB PO SCH (08:22)
[2021-12-24] MEDS: INSULIN DETEMIR (LEVEMIR) 100 UNIT/ML SYR SQ SCH (08:23)
[2021-12-24] MEDS: INSULIN ASPART (NovoLOG) 100 UNIT/ML VIAL SQ SCH ×2 (08:23)
[2021-12-24 08:33] VITALS: BP 130/79; PULSE 59; RESP 18; TEMP 98
--- NOTE | 2021-12-24 09:21 | HP ---
HISTORY AND PHYSICAL CHIEF COMPLAINT: Nausea and vomiting. HISTORY OF PRESENT ILLNESS: This is an another admission for this 51-year-old white female with insulin-dependent diabetes mellitus, who is frequently to the hospital. She will not take her insulin. She came in complaining of nausea and vomiting and stated she had been taking her insulin, but her blood sugar was 590. When asked how much Lantus she is taking, she reports "10." She is supposed to be on 100. REVIEW OF SYSTEMS: She has had no fever, chills, hematemesis, melena, hematochezia, etc. Past medical history, family history, personal and social histories are all otherwise unremarkable and unchanged. She does not smoke. She does have hypertriglyceridemia. PHYSICAL EXAMINATION: VITAL SIGNS: Blood pressure is 174/84 with a pulse of 105, respirations of 38, and she is afebrile. GENERAL: She appeared to be obese, in no acute distress. SKIN: Skin color is normal. Skin is warm and dry. LYMPH NODES: Not enlarged. HEAD, EARS, EYES, NOSE, MOUTH AND THROAT: Normal. CHEST: Clear. CARDIAC: Cardiac exam demonstrated tachycardia. ABDOMEN: Protuberant, soft, and nontender without visceromegaly or masses. Bowel sounds present. EXTREMITIES: Normal. NEUROLOGICAL: Intact. She is admitted to the hospital with diagnosis: 1. Intractable nausea and vomiting. 2. Dehydration. 3. Uncontrolled diabetes mellitus due to noncompliance. 4. History of triglyceridemia. 5. History of chronic relapsing pancreatitis. 6. Narcotic abuse. PLAN: 1. Bedrest. 2. IV fluids. 3. Correct hyperglycemia. 4. Refuse narcotic analgesics, which she is requesting. MMODL / IJN: [id number] /
--- NOTE | 2021-12-24 18:27 | PN ---
PROGRESS NOTE CHIEF COMPLAINT: Uncontrolled diabetes. HISTORY OF PRESENT ILLNESS: This lady is doing well. Sugars are coming down. Her vital signs are normal. She is asking for something "stronger for pain." PHYSICAL EXAMINATION: CHEST: Clear. CARDIAC: Normal. ABDOMEN: Soft and protuberant. IMPRESSION: 1. Uncontrolled diabetes. 2. Abdominal pain. 3. History of pancreatitis. PLAN: Continue management of her insulin. She may be able to go home tomorrow. MMODL / IJN: [id number] /
--- NOTE | 2021-12-26 08:56 | DS ---
DISCHARGE SUMMARY CHIEF COMPLAINT: Uncontrolled diabetes with chest pain and nausea and vomiting. HISTORY OF PRESENT ILLNESS AND PHYSICAL EXAMINATION: Details of this lady's history and physical can be found in the initial workup. LABORATORY STUDIES: While she is in the hospital, she had laboratory studies, details of which can be found in the laboratory section of her chart. COURSE IN THE HOSPITAL: After admission, she was placed on bedrest, started on intravenous fluids, and blood sugars were brought under control. While she is in the hospital, she complained of pain in the left knee, abdominal pain, chest pain, etc. She requested narcotic analgesics, and these were refused. After her blood sugars were brought under control, it was felt that she could be discharged. She will go home on her usual activity and diet medications. She is very noncompliant. She does not take her medications as directed purposely so she can come back into the hospital. When asked how much Lantus she takes, she states that she takes 10 units. She has been instructed to take 100, which does control her. FINAL DIAGNOSES: 1. Uncontrolled diabetes mellitus. 2. Chest pain. 3. Nausea and vomiting. 4. Hypertriglyceridemia. 5. History of pancreatitis. 6. Obesity. 7. Depression. OPERATIONS: None. CONSULTATION: None. CONDITION: She is improved. MMODL / IJN: [id number] /
[2021-12-26] MEDS ORDERED: ERGOCALCIFEROL 1,250 MCG (50,000 IU) CAPSULE PO SCH (09:00)
== END 2021-12-24 10:20 | disposition home or self-care (01) | DRG 638 ==
LOC: EC 17:32 → 3SCARD 21:30 → 6NMEDSUR 12-22 01:53
PROVIDERS: ADMIT Family Medicine; ATTEND Family Medicine
DX: E11.65 Type 2 diabetes mellitus with hyperglycemia (principal); K86.1 Other chronic pancreatitis; Z68.41 Body mass index [BMI] 40.0-44.9, adult; E86.0 Dehydration; E78.5 Hyperlipidemia, unspecified; E78.1 Pure hyperglyceridemia; E66.9 Obesity, unspecified; F32.A Depression, unspecified; M54.50 Low back pain, unspecified; G89.29 Other chronic pain; I10 Essential (primary) hypertension; Z79.4 Long term (current) use of insulin; Z87.891 Personal history of nicotine dependence; F11.10 Opioid abuse, uncomplicated; T38.3X6A Underdosing of insulin and oral hypoglycemic [antidiabetic] drugs, initial encounter; Z91.128 Patient's intentional underdosing of medication regimen for other reason; Z76.5 Malingerer [conscious simulation]; Z71.3 Dietary counseling and surveillance; Z88.2 Allergy status to sulfonamides; Z87.74 Personal history of (corrected) congenital malformations of heart and circulatory system
CPT/HCPCS: 36415; 80051; 82009; 82565; 82803; 82947; 83036; 84520; 85025; 93005

== ENCOUNTER 2021-12-30 18:20 | Emergency (ER) | payer MEDICARE ==
[2021-12-30 18:53] VITALS: PULSE 75
--- NOTE | 2021-12-31 00:48 | XR ---
EXAMINATION TYPE: XR chest 2V DATE OF EXAM: 12/31/2021 COMPARISON: 12/15/2021 HISTORY: Cough TECHNIQUE: FINDINGS: Heart is normal. Lungs are clear of consolidation. There are small linear density left midl anna. Right lung is clear. No pleural effusion. There are no hilar masses. Bony thorax is intact. IMPRESSION: Mild subsegmental atelectasis in the left mid lung. Normal heart.
--- NOTE | 2021-12-31 07:27 | ED ---
URI HPI - General Chief Complaint: Upper Respiratory Infection Stated Complaint: Flu like symptoms Time Seen by Provider: 12/31/21 07:11 Source: patient, RN notes reviewed Mode of arrival: wheelchair Limitations: no limitations - History of Present Illness Initial Comments: 51-year-old female presents emergency department with chief complaint of cough and cold-like symptoms. Patient states that she's been sick for last 4 days she complains of subjective fever runny nose sore throat and productive cough. No chest pain or shortness breath denies any sick contacts. Patient denies any [id number] cough medications. Patient states her blood sugars been within normal limits denies any nausea vomiting diarrhea constipation patient complaints. - Related Data Home Medications Medication Instructions Recorded Confirmed Atorvastatin [Lipitor] 80 mg PO HS 06/25/19 12/21/21 lisinopriL 40 mg PO DAILY 09/24/20 12/21/21 metFORMIN HCL [Glucophage] 500 mg PO DAILY 09/24/20 12/21/21 traZODone HCL 50 - 100 mg PO HS PRN 01/11/21 12/21/21 Ergocalciferol (Vitamin D2) 1,250 mcg PO TU 03/03/21 12/21/21 [Drisdol (50,000 Iu)] Albuterol Inhaler [Ventolin Hfa 2 puff INHALATION RT-QID PRN 07/28/21 12/21/21 Inhaler] INSULIN ASPART (NovoLOG) [NovoLOG 18 unit SQ AC-TID 09/24/21 12/21/21 (formulary)] Previous Rx's Medication Instructions Recorded Fenofibrate [Lofibra] 160 mg PO DAILY #30 tab 03/23/19 Insulin Detemir (Levemir) [Levemir] 100 unit SQ DAILY@0700 30 Days #1 12/11/21 pen Pantoprazole [Protonix] 40 mg PO DAILY #14 tab 12/11/21 Allergies Allergy/AdvReac Type Severity Reaction Status Date / Time levofloxacin [From Levaquin] Allergy Rash/Hives Verified 12/30/21 18:53 Review of Systems ROS Statement: Those systems with pertinent positive or pertinent negative responses have been documented in the HPI. ROS Other: All systems not noted in ROS Statement are negative. Past Medical History Past Medical History: Diabetes Mellitus, GERD/Reflux, Hyperlipidemia, Hypertension, Syncope Additional Past Medical History / Comment(s): Pt recently admitted to [facility] on 07/21/21 with uncontrolled IDDM and hyperkalemia. Other hx: Recurrent pancreatitis, hypertriglyceridemia, elevated lipase, IDDM type II, UTI, chronic low back pain, bulging discs, dental abscesses in past. History of Any Multi-Drug Resistant Organisms: None Reported Past Surgical History: Tubal Ligation Additional Past Surgical History / Comment(s): Age 7 had VSD repair Past Anesthesia/Blood Transfusion Reactions: No Reported Reaction Past Psychological History: No Psychological Hx Reported Smoking Status: Former smoker Past Alcohol Use History: None Reported Past Drug Use History: None Reported - Past Family History Mother Family Medical History: No Reported History Additional Family Medical History / Comment(s): Mother was healthy. She is , pt cannot recall cause of . Father Family Medical History: Pneumonia Additional Family Medical History / Comment(s): Father at the age of 67yrs from pneumonia General Exam Limitations: no limitations General appearance: alert, in no apparent distress Head exam: Present: atraumatic, normocephalic, normal inspection Eye exam: Present: normal appearance, PERRL, EOMI. Absent: scleral icterus, conjunctival injection, periorbital swelling ENT exam: Present: normal exam, normal oropharynx, mucous membranes moist Neck exam: Present: normal inspection. Absent: tenderness, meningismus, lymphadenopathy Respiratory exam: Present: normal lung sounds bilaterally. Absent: respiratory distress, wheezes, rales, rhonchi, stridor Cardiovascular Exam: Present: regular rate, normal rhythm, normal heart sounds. Absent: systolic murmur, diastolic murmur, rubs, gallop, clicks Course Vital Signs 12/30/21 18:50 Temperature 99 F Pulse Rate 75 Respiratory 16 Rate Blood Pressure 115/70 O2 Sat by Pulse 98 Oximetry Medical Decision Making - Medical Decision Making Vitals are reviewed and are stable, x-ray: 19 T were performed in triage was negative patient was discharged in stable condition viral upper respiratory return parameters were discussed - Lab Data Lab Results 12/31/21 Range/Units 00:04 Coronavirus (PCR) Not Detected (Not Detectd) Disposition Clinical Impression: Upper respiratory tract infection Disposition: HOME SELF-CARE Condition: Stable Instructions (If sedation given, give patient instructions): Upper Respiratory Infection (ED) Additional Instructions: Please return to the Emergency Department if symptoms worsen or any other concerns. Is patient prescribed a controlled substance at d/c from ED?: No Referrals: Guillermo Cerda MD [Primary Care Provider] - 1-2 days Time of Disposition: 07:27
[2021-12-31 07:49] VITALS: BP 143/74; RESP 18; TEMP 98.5
== END 2021-12-31 07:49 | disposition home or self-care (01) ==
LOC: EC 18:20
DX: J06.9 Acute upper respiratory infection, unspecified (principal); E11.9 Type 2 diabetes mellitus without complications; K21.9 Gastro-esophageal reflux disease without esophagitis; E78.5 Hyperlipidemia, unspecified; I10 Essential (primary) hypertension; Z79.02 Long term (current) use of antithrombotics/antiplatelets; Z79.01 Long term (current) use of anticoagulants; Z79.84 Long term (current) use of oral hypoglycemic drugs; Z79.4 Long term (current) use of insulin; Z88.1 Allergy status to other antibiotic agents; Z20.822 Contact with and (suspected) exposure to COVID-19; Z87.891 Personal history of nicotine dependence
CPT/HCPCS: 71046; 87635; 99284

== ENCOUNTER 2022-01-09 00:45 | Emergency (ER) | payer MEDICARE ==
[2022-01-09 00:54] VITALS: RESP 18
--- NOTE | 2022-01-09 01:08 | ED ---
Recheck HPI - General Chief Complaint: Recheck/Abnormal Lab/Rx Stated Complaint: diabetic, not feeling well Time Seen by Provider: 01/09/22 00:48 Source: EMS, RN notes reviewed, old records reviewed Mode of arrival: EMS Limitations: no limitations - History of Present Illness Initial Comments: Physical for a 11-year-old female who presents to ER for evaluation. Multiple nonspecific complaints and they are normal complaints some chest pain and abdominal pain and nausea vomiting, sore throat and elevated blood sugar. Some dull patient states she does not feel well her right MD Complaint: other (Not feeling well) -: unknown Returns Today for: persistent/worsening pain related to initial visit Symptoms Since Prior Visit: worsening pain Associated Symptoms: abdominal pain Treatments Prior to Arrival: Given Pain Meds on - Related Data Home Medications Medication Instructions Recorded Confirmed Atorvastatin [Lipitor] 80 mg PO HS 06/25/19 12/21/21 lisinopriL 40 mg PO DAILY 09/24/20 12/21/21 metFORMIN HCL [Glucophage] 500 mg PO DAILY 09/24/20 12/21/21 traZODone HCL 50 - 100 mg PO HS PRN 01/11/21 12/21/21 Ergocalciferol (Vitamin D2) 1,250 mcg PO TU 03/03/21 12/21/21 [Drisdol (50,000 Iu)] Albuterol Inhaler [Ventolin Hfa 2 puff INHALATION RT-QID PRN 07/28/21 12/21/21 Inhaler] INSULIN ASPART (NovoLOG) [NovoLOG 18 unit SQ AC-TID 09/24/21 12/21/21 (formulary)] Previous Rx's Medication Instructions Recorded Fenofibrate [Lofibra] 160 mg PO DAILY #30 tab 03/23/19 Insulin Detemir (Levemir) [Levemir] 100 unit SQ DAILY@0700 30 Days #1 12/11/21 pen Pantoprazole [Protonix] 40 mg PO DAILY #14 tab 12/11/21 Allergies Allergy/AdvReac Type Severity Reaction Status Date / Time levofloxacin [From Levaquin] Allergy Rash/Hives Verified 01/09/22 00:54 Review of Systems ROS Statement: Those systems with pertinent positive or pertinent negative responses have been documented in the HPI. ROS Other: All systems not noted in ROS Statement are negative. Past Medical History Past Medical History: Diabetes Mellitus, GERD/Reflux, Hyperlipidemia, Hypertension, Syncope Additional Past Medical History / Comment(s): Pt recently admitted to [facility] on 07/21/21 with uncontrolled IDDM and hyperkalemia. Other hx: Recurrent pancreatitis, hypertriglyceridemia, elevated lipase, IDDM type II, UTI, chronic low back pain, bulging discs, dental abscesses in past. History of Any Multi-Drug Resistant Organisms: None Reported Past Surgical History: Tubal Ligation Additional Past Surgical History / Comment(s): Age 7 had VSD repair Past Anesthesia/Blood Transfusion Reactions: No Reported Reaction Past Psychological History: No Psychological Hx Reported Smoking Status: Former smoker Past Alcohol Use History: None Reported Past Drug Use History: None Reported - Past Family History Mother Family Medical History: No Reported History Additional Family Medical History / Comment(s): Mother was healthy. She is , pt cannot recall cause of . Father Family Medical History: Pneumonia Additional Family Medical History / Comment(s): Father at the age of 67yrs from pneumonia General Exam Limitations: no limitations General appearance: alert, in no apparent distress Head exam: Present: atraumatic, normocephalic, normal inspection Eye exam: Present: normal appearance, PERRL, EOMI. Absent: scleral icterus, conjunctival injection, periorbital swelling ENT exam: Present: normal exam, mucous membranes moist Neck exam: Present: normal inspection. Absent: tenderness, meningismus, lymphadenopathy Respiratory exam: Present: normal lung sounds bilaterally. Absent: respiratory distress, wheezes, rales, rhonchi, stridor Cardiovascular Exam: Present: regular rate, normal rhythm, normal heart sounds. Absent: systolic murmur, diastolic murmur, rubs, gallop, clicks GI/Abdominal exam: Present: soft, normal bowel sounds. Absent: distended, tenderness, guarding, rebound, rigid Extremities exam: Present: normal inspection, full ROM, normal capillary refill. Absent: tenderness, pedal edema, joint swelling, calf tenderness Back exam: Present: normal inspection Neurological exam: Present: alert, oriented X3, CN II-XII intact Psychiatric exam: Present: normal affect, normal mood Skin exam: Present: warm, dry, intact, normal color. Absent: rash Course Vital Signs 01/09/22 00:52 Temperature 98.1 F Pulse Rate 67 Respiratory 18 Rate Blood Pressure 175/84 O2 Sat by Pulse 100 Oximetry - Reevaluation(s) Reevaluation #1: 01/09/22 03:41 Medical record is reviewed Reevaluation #2: 01/09/22 03:41 Patient informed results questions answered Medical Decision Making - Medical Decision Making 51 female DF for evaluation for not feeling well patient has significant mental health issues multiple visits for the ER sometimes weekly sometimes multiple visits daily. Patient is watched here in the emergency department and then discharged home Disposition Clinical Impression: Weakness Disposition: HOME SELF-CARE Condition: Good Instructions (If sedation given, give patient instructions): Weakness (ED) Is patient prescribed a controlled substance at d/c from ED?: No Referrals: Guillermo Cerda MD [Primary Care Provider] - 1-2 days Time of Disposition: 03:45
[2022-01-09] MEDS ORDERED: traMADol 50 MG TAB PO STA (04:17)
[2022-01-09 04:33] VITALS: BP 155/92; PULSE 76; TEMP 98.7
== END 2022-01-09 04:32 | disposition home or self-care (01) ==
LOC: EC 00:45
DX: R53.1 Weakness (principal); E78.1 Pure hyperglyceridemia; E11.9 Type 2 diabetes mellitus without complications; K21.9 Gastro-esophageal reflux disease without esophagitis; E78.5 Hyperlipidemia, unspecified; Z88.1 Allergy status to other antibiotic agents; Z87.891 Personal history of nicotine dependence; Z79.4 Long term (current) use of insulin; Z79.84 Long term (current) use of oral hypoglycemic drugs; Z79.899 Other long term (current) drug therapy
CPT/HCPCS: 99284

== ENCOUNTER 2022-01-11 11:00 | Emergency (ER) | payer MEDICARE ==
[2022-01-11 12:31] VITALS: TEMP 98.8
[2022-01-11] MEDS ORDERED: SODIUM CHLORIDE 0.9% 2,000 ML IV ONE (15:08)
[2022-01-11] MEDS ORDERED: INSULIN REGULAR 100 UNIT/ML VIAL (IV) SQ STA (15:08)
[2022-01-11] MEDS ORDERED: INSULIN REGULAR 100 UNIT/ML VIAL (IM/SQ) SQ ONE (15:18)
[2022-01-11 15:27] LABS: Anisocytosis Slight; Basophils # (A) 0.1 k/uL (0-0.2); Basophils % (A) 1 %; Eosinophils # (A) 0.3 k/uL (0-0.7); Eosinophils % (A) 2 %; HCT 39.2 % (34.0-46.0); HGB 11.4 gm/dL (11.4-16.0); Hypochromasia Marked; Lymphocytes # (A) 2.1 k/uL (1.0-4.8); Lymphocytes % (A) 20 %; MCH 21.2 pg (25.0-35.0); MCHC 29.1 g/dL (31.0-37.0); Mean Platelet Volume 7.6; Microcytosis Moderate; Monocytes # (A) 0.3 k/uL (0-1.0); Monocytes % (A) 3 %; Neutrophils # (A) 7.5 k/uL (1.3-7.7); Neutrophils % (A) 72 %; Platelet Count 619 k/uL (150-450); RBC 5.37 m/uL (3.80-5.40); RDW 18.4 % (11.5-15.5); WBC 10.5 k/uL (3.8-10.6)
[2022-01-11 15:28] LABS: Glucose,Whole Blood 302 mg/dL (70-110)
[2022-01-11 15:29] LABS: Appearance,Urine Clear (Clear); Bilirubin,Urine Negative (Negative); Blood,Urine Negative (Negative); Color,Urine Yellow; Glucose,Urine (UA) 4+ (Negative); Hyaline Casts,Urine 23 /lpf (0-2); Ketones,Urine Negative (Negative); Leukocyte Esterase,Urine Negative (Negative); Mucus,Urine Few /hpf; Nitrite,Urine Negative (Negative); Protein,Urine 3+ (Negative); RBC,Urine 4 /hpf (0-5); Specific Gravity,Urine 1.021 (1.001-1.035); Squamous Epithelial Cell,Urine 1 /hpf (0-4); WBC,Urine 3 /hpf (0-5)
--- NOTE | 2022-01-11 15:29 | ED ---
Abdominal Pain HPI - General Chief Complaint: Abdominal Pain Stated Complaint: Flank pain Time Seen by Provider: 01/11/22 14:55 Source: patient Mode of arrival: EMS Limitations: no limitations - History of Present Illness Initial Comments: is a 51-year-old woman who presents to have evaluation of right lower quadrant pain that is been going on for approximately one day. The patient describes as aching, constant. Patient states she may be urinating more frequently. There is some mild discomfort with urination. She has not noted other associated symptoms. No change in bowel movements. No vomiting. No fever or chills. MD Complaint: abdominal pain, flank pain Onset/Timin -: days(s) Location: RLQ, R flank Migration to: no migration Severity: moderate Quality: aching Consistency: constant Improves With: nothing Worsens With: nothing Associated Symptoms: dysuria - Related Data Home Medications Medication Instructions Recorded Confirmed Atorvastatin [Lipitor] 80 mg PO HS 06/25/19 12/21/21 lisinopriL 40 mg PO DAILY 09/24/20 12/21/21 metFORMIN HCL [Glucophage] 500 mg PO DAILY 09/24/20 12/21/21 traZODone HCL 50 - 100 mg PO HS PRN 01/11/21 12/21/21 Ergocalciferol (Vitamin D2) 1,250 mcg PO TU 03/03/21 12/21/21 [Drisdol (50,000 Iu)] Albuterol Inhaler [Ventolin Hfa 2 puff INHALATION RT-QID PRN 07/28/21 12/21/21 Inhaler] INSULIN ASPART (NovoLOG) [NovoLOG 18 unit SQ AC-TID 09/24/21 12/21/21 (formulary)] Previous Rx's Medication Instructions Recorded Fenofibrate [Lofibra] 160 mg PO DAILY #30 tab 03/23/19 Insulin Detemir (Levemir) [Levemir] 100 unit SQ DAILY@0700 30 Days #1 12/11/21 pen Pantoprazole [Protonix] 40 mg PO DAILY #14 tab 12/11/21 Allergies Allergy/AdvReac Type Severity Reaction Status Date / Time levofloxacin [From Levaquin] Allergy Rash/Hives Verified 01/09/22 00:54 Review of Systems ROS Statement: Those systems with pertinent positive or pertinent negative responses have been documented in the HPI. ROS Other: All systems not noted in ROS Statement are negative. Constitutional: Denies: fever, chills Respiratory: Denies: cough, dyspnea Cardiovascular: Denies: chest pain, palpitations Gastrointestinal: Reports: abdominal pain. Denies: nausea, vomiting, diarrhea, constipation Genitourinary: Reports: dysuria, frequency. Denies: hematuria, discharge Musculoskeletal: Denies: back pain Skin: Denies: rash Neurological: Denies: headache, weakness, numbness Past Medical History Past Medical History: Diabetes Mellitus, GERD/Reflux, Hyperlipidemia, Hypertension, Syncope Additional Past Medical History / Comment(s): Pt recently admitted to [facility] on 07/21/21 with uncontrolled IDDM and hyperkalemia. Other hx: Recurrent pancreatitis, hypertriglyceridemia, elevated lipase, IDDM type II, UTI, chronic low back pain, bulging discs, dental abscesses in past. History of Any Multi-Drug Resistant Organisms: None Reported Past Surgical History: Tubal Ligation Additional Past Surgical History / Comment(s): Age 7 had VSD repair Past Anesthesia/Blood Transfusion Reactions: No Reported Reaction Past Psychological History: No Psychological Hx Reported Smoking Status: Former smoker Past Alcohol Use History: None Reported Past Drug Use History: None Reported - Past Family History Mother Family Medical History: No Reported History Additional Family Medical History / Comment(s): Mother was healthy. She is , pt cannot recall cause of . Father Family Medical History: Pneumonia Additional Family Medical History / Comment(s): Father at the age of 67yrs from pneumonia General Exam Limitations: no limitations General appearance: alert, in no apparent distress Head exam: Present: atraumatic, normocephalic Eye exam: Present: normal appearance. Absent: scleral icterus, conjunctival injection Neck exam: Present: normal inspection Respiratory exam: Present: normal lung sounds bilaterally. Absent: respiratory distress, wheezes, rales, rhonchi, stridor Cardiovascular Exam: Present: regular rate, normal rhythm, normal heart sounds. Absent: systolic murmur, diastolic murmur, rubs, gallop GI/Abdominal exam: Present: soft. Absent: distended, tenderness, guarding, rebound, rigid, mass Extremities exam: Present: normal inspection, normal capillary refill. Absent: pedal edema, calf tenderness Back exam: Present: normal inspection. Absent: CVA tenderness (R), CVA tenderness (L) Neurological exam: Present: alert Skin exam: Present: warm, dry, intact, normal color. Absent: rash Course Vital Signs 01/11/22 12:28 Temperature 98.8 F Pulse Rate 70 Respiratory 16 Rate Blood Pressure 161/76 O2 Sat by Pulse 98 Oximetry Medical Decision Making - Lab Data Result diagrams: 01/11/22 15:11 01/11/22 15:11 Lab Results 01/11/22 01/11/22 01/11/22 Range/Units 15:11 15:11 15:11 WBC 10.5 (3.8-10.6) k/uL RBC 5.37 (3.80-5.40) m/uL Hgb 11.4 (11.4-16.0) gm/dL Hct 39.2 (34.0-46.0) % MCV 73.0 L (80.0-100.0) fL MCH 21.2 L (25.0-35.0) pg MCHC 29.1 L (31.0-37.0) g/dL RDW 18.4 H (11.5-15.5) % Plt Count 619 H (150-450) k/uL MPV 7.6 Neutrophils % 72 % Lymphocytes % 20 % Monocytes % 3 % Eosinophils % 2 % Basophils % 1 % Neutrophils # 7.5 (1.3-7.7) k/uL Lymphocytes # 2.1 (1.0-4.8) k/uL Monocytes # 0.3 (0-1.0) k/uL Eosinophils # 0.3 (0-0.7) k/uL Basophils # 0.1 (0-0.2) k/uL Hypochromasia Marked Anisocytosis Slight Microcytosis Moderate Sodium 137 (137-145) mmol/L Potassium 4.6 (3.5-5.1) mmol/L Chloride 98 (98-107) mmol/L Carbon Dioxide 21 L (22-30) mmol/L Anion Gap 18 mmol/L BUN 13 (7-17) mg/dL Creatinine 0.67 (0.52-1.04) mg/dL Est GFR (CKD-EPI)AfAm >90 (>60 ml/min/1.73 sqM) Est GFR (CKD-EPI)NonAf >90 (>60 ml/min/1.73 sqM) Glucose 334 H (74-99) mg/dL POC Glucose (mg/dL) (70-110) mg/dL POC Glu Mail Deliverer ID Calcium 9.8 (8.4-10.2) mg/dL Total Bilirubin 0.4 (0.2-1.3) mg/dL AST 52 H (14-36) U/L ALT 40 H (4-34) U/L Alkaline Phosphatase 215 H (38-126) U/L Total Protein 7.8 (6.3-8.2) g/dL Albumin 4.5 (3.5-5.0) g/dL Amylase 41 (30-110) U/L Lipase 173 (23-300) U/L Urine Color Yellow Urine Appearance Clear (Clear) Urine pH 6.0 (5.0-8.0) Ur Specific [place] 1.021 (1.001-1.035) Urine Protein 3+ H (Negative) Urine Glucose (UA) 4+ H (Negative) Urine Ketones Negative (Negative) Urine Blood Negative (Negative) Urine Nitrite Negative (Negative) Urine Bilirubin Negative (Negative) Urine Urobilinogen 3.0 (<2.0) mg/dL Ur Leukocyte Esterase Negative (Negative) Urine RBC 4 (0-5) /hpf Urine WBC 3 (0-5) /hpf Ur Squamous Epith Cells 1 (0-4) /hpf Hyaline Casts 23 H (0-2) /lpf Urine Mucus Few H (None) /hpf Urine HCG, Qual (Not Detectd) Acetone, Qual Negative (Negative) 01/11/22 01/11/22 Range/Units 15:11 15:17 WBC (3.8-10.6) k/uL RBC (3.80-5.40) m/uL Hgb (11.4-16.0) gm/dL Hct (34.0-46.0) % MCV (80.0-100.0) fL MCH (25.0-35.0) pg MCHC (31.0-37.0) g/dL RDW (11.5-15.5) % Plt Count (150-450) k/uL MPV Neutrophils % % Lymphocytes % % Monocytes % % Eosinophils % % Basophils % % Neutrophils # (1.3-7.7) k/uL Lymphocytes # (1.0-4.8) k/uL Monocytes # (0-1.0) k/uL Eosinophils # (0-0.7) k/uL Basophils # (0-0.2) k/uL Hypochromasia Anisocytosis Microcytosis Sodium (137-145) mmol/L Potassium (3.5-5.1) mmol/L Chloride (98-107) mmol/L Carbon Dioxide (22-30) mmol/L Anion Gap mmol/L BUN (7-17) mg/dL Creatinine (0.52-1.04) mg/dL Est GFR (CKD-EPI)AfAm (>60 ml/min/1.73 sqM) Est GFR (CKD-EPI)NonAf (>60 ml/min/1.73 sqM) Glucose (74-99) mg/dL POC Glucose (mg/dL) 302 H (70-110) mg/dL POC Glu Mail Deliverer ID Jackie Arce Calcium (8.4-10.2) mg/dL Total Bilirubin (0.2-1.3) mg/dL AST (14-36) U/L ALT (4-34) U/L Alkaline Phosphatase (38-126) U/L Total Protein (6.3-8.2) g/dL Albumin (3.5-5.0) g/dL Amylase (30-110) U/L Lipase (23-300) U/L Urine Color Urine Appearance (Clear) Urine pH (5.0-8.0) Ur Specific [place] (1.001-1.035) Urine Protein (Negative) Urine Glucose (UA) (Negative) Urine Ketones (Negative) Urine Blood (Negative) Urine Nitrite (Negative) Urine Bilirubin (Negative) Urine Urobilinogen (<2.0) mg/dL Ur Leukocyte Esterase (Negative) Urine RBC (0-5) /hpf Urine WBC (0-5) /hpf Ur Squamous Epith Cells (0-4) /hpf Hyaline Casts (0-2) /lpf Urine Mucus (None) /hpf Urine HCG, Qual Not Detected (Not Detectd) Acetone, Qual (Negative) Disposition Clinical Impression: Abdominal pain, Hyperglycemia Disposition: HOME SELF-CARE Condition: Good Instructions (If sedation given, give patient instructions): Abdominal Pain (ED), Diabetic Hyperglycemia (ED) Is patient prescribed a controlled substance at d/c from ED?: No Referrals: Guillermo Cerda MD [Primary Care Provider] - 1-2 days
[2022-01-11] MEDS ORDERED: INSULIN REGULAR 100 UNIT/ML VIAL (IM/SQ) SQ STA (15:35)
[2022-01-11 15:39] LABS: ALT 40 U/L (4-34); AST 52 U/L (14-36); African American GFR (CKD) >90 (>60 ml/min/1.73 sqM); Albumin 4.5 g/dL (3.5-5.0); Alkaline Phosphatase 215 U/L (38-126); Amylase 41 U/L (30-110); Anion Gap 18 mmol/L; Blood Urea Nitrogen 13 mg/dL (7-17); Calcium 9.8 mg/dL (8.4-10.2); Carbon Dioxide 21 mmol/L (22-30); Chloride 98 mmol/L (98-107); Glucose 334 mg/dL (74-99); Lipase 173 U/L (23-300); Non-African American GFR(CKD) >90 (>60 ml/min/1.73 sqM); Potassium 4.6 mmol/L (3.5-5.1); Sodium 137 mmol/L (137-145); Total Bilirubin 0.4 mg/dL (0.2-1.3); Total Protein 7.8 g/dL (6.3-8.2)
[2022-01-11 18:26] LABS: Glucose,Whole Blood 160 mg/dL (70-110)
[2022-01-11 18:53] VITALS: BP 142/84; PULSE 74; RESP 18
== END 2022-01-11 18:53 | disposition home or self-care (01) ==
LOC: EC 11:00
DX: R73.9 Hyperglycemia, unspecified (principal); R10.9 Unspecified abdominal pain; E78.5 Hyperlipidemia, unspecified; I10 Essential (primary) hypertension; Z79.4 Long term (current) use of insulin; Z87.891 Personal history of nicotine dependence
CPT/HCPCS: 36415; 80053; 81001; 81025; 82009; 82150; 83690; 85025; 96360; 96361; 99284

== ENCOUNTER 2022-01-24 12:34 | Emergency (ER) | payer MEDICARE ==
[2022-01-24 13:35] VITALS: RESP 16
--- NOTE | 2022-01-24 15:12 | XR ---
EXAMINATION TYPE: XR chest 2V DATE OF EXAM: 01/24/2022 COMPARISON: 12/31/2021 HISTORY: 51-year-old female with cough and shortness of breath TECHNIQUE: PA and lateral views FINDINGS: Heart normal size. Median sternotomy wires. Aorta and pulmonary vasculature within normal limits. Mookie e similar strandy scarring or atelectasis left midlung. Mild interstitial prominence is unchanged. Ir regularity of multiple left lateral mid ribs. No new consolidation or pleural effusion. IMPRESSION: 1. Correlate for bronchitis or chronic asthma. 2. Possible underlying mid left lateral rib fractures. Correlate for point tenderness and any trauma history.
--- NOTE | 2022-01-24 16:04 | ED ---
URI HPI - General Chief Complaint: Upper Respiratory Infection Stated Complaint: not feeling well Time Seen by Provider: 01/24/22 14:52 Source: patient, RN notes reviewed Mode of arrival: wheelchair Limitations: no limitations - History of Present Illness Initial Comments: 51-year-old female presented emergency department for evaluation of cough congestion. Patient's been sick last few days. Patient states she has a productive cough and shortness breath no fevers or chills patient denies any chest pain no GI symptoms. Patient states that her blood sugars have been well- controlled. Patient denies any other associated complaints. - Related Data Home Medications Medication Instructions Recorded Confirmed Atorvastatin [Lipitor] 80 mg PO HS 06/25/19 12/21/21 lisinopriL 40 mg PO DAILY 09/24/20 12/21/21 metFORMIN HCL [Glucophage] 500 mg PO DAILY 09/24/20 12/21/21 traZODone HCL 50 - 100 mg PO HS PRN 01/11/21 12/21/21 Ergocalciferol (Vitamin D2) 1,250 mcg PO TU 03/03/21 12/21/21 [Drisdol (50,000 Iu)] Albuterol Inhaler [Ventolin Hfa 2 puff INHALATION RT-QID PRN 07/28/21 12/21/21 Inhaler] INSULIN ASPART (NovoLOG) [NovoLOG 18 unit SQ AC-TID 09/24/21 12/21/21 (formulary)] Previous Rx's Medication Instructions Recorded Fenofibrate [Lofibra] 160 mg PO DAILY #30 tab 03/23/19 Insulin Detemir (Levemir) [Levemir] 100 unit SQ DAILY@0700 30 Days #1 12/11/21 pen Pantoprazole [Protonix] 40 mg PO DAILY #14 tab 12/11/21 Azithromycin [Zithromax Z Pack] 0 tab PO DIRECTED #6 tab 01/24/22 Allergies Allergy/AdvReac Type Severity Reaction Status Date / Time levofloxacin [From Levaquin] Allergy Rash/Hives Verified 01/09/22 00:54 Review of Systems ROS Statement: Those systems with pertinent positive or pertinent negative responses have been documented in the HPI. ROS Other: All systems not noted in ROS Statement are negative. Past Medical History Past Medical History: Diabetes Mellitus, GERD/Reflux, Hyperlipidemia, Hypertension, Syncope Additional Past Medical History / Comment(s): Pt recently admitted to [facility] on 07/21/21 with uncontrolled IDDM and hyperkalemia. Other hx: Recurrent pancreatitis, hypertriglyceridemia, elevated lipase, IDDM type II, UTI, chronic low back pain, bulging discs, dental abscesses in past. History of Any Multi-Drug Resistant Organisms: None Reported Past Surgical History: Tubal Ligation Additional Past Surgical History / Comment(s): Age 7 had VSD repair Past Anesthesia/Blood Transfusion Reactions: No Reported Reaction Past Psychological History: No Psychological Hx Reported Smoking Status: Former smoker Past Alcohol Use History: None Reported Past Drug Use History: None Reported - Past Family History Mother Family Medical History: No Reported History Additional Family Medical History / Comment(s): Mother was healthy. She is , pt cannot recall cause of . Father Family Medical History: Pneumonia Additional Family Medical History / Comment(s): Father at the age of 67yrs from pneumonia General Exam Limitations: no limitations General appearance: alert, in no apparent distress Head exam: Present: atraumatic, normocephalic, normal inspection Eye exam: Present: normal appearance, PERRL, EOMI. Absent: scleral icterus, conjunctival injection, periorbital swelling ENT exam: Present: normal exam, normal oropharynx, mucous membranes moist Neck exam: Present: normal inspection, full ROM. Absent: tenderness, meningismus, lymphadenopathy Respiratory exam: Present: normal lung sounds bilaterally. Absent: respiratory distress, wheezes, rales, rhonchi, stridor Cardiovascular Exam: Present: regular rate, normal rhythm, normal heart sounds. Absent: systolic murmur, diastolic murmur, rubs, gallop, clicks Course Vital Signs 01/24/22 13:32 Temperature 98.8 F Pulse Rate 72 Respiratory 16 Rate Blood Pressure 133/80 O2 Sat by Pulse 99 Oximetry Medical Decision Making - Medical Decision Making Chest x-ray shows acute bronchitis type changes, influenza A and B- negative COVID-19. - Lab Data Lab Results 01/24/22 01/24/22 Range/Units 15:13 15:13 Coronavirus (PCR) Not Detected (Not Detectd) Influenza Type A RNA Not Detected (Not Detectd) Influenza Type B (PCR) Not Detected (Not Detectd) Disposition Clinical Impression: Bronchitis Disposition: HOME SELF-CARE Condition: Stable Instructions (If sedation given, give patient instructions): Upper Respiratory Infection (ED) Additional Instructions: Please return to the Emergency Department if symptoms worsen or any other concerns. Prescriptions: Azithromycin [Zithromax Z Pack] 0 tab PO DIRECTED #6 tab Is patient prescribed a controlled substance at d/c from ED?: No Referrals: Guillermo Cerda MD [Primary Care Provider] - 1-2 days Time of Disposition: 16:04
[2022-01-24 16:19] VITALS: BP 138/78; PULSE 78; TEMP 98.5
== END 2022-01-24 16:18 | disposition home or self-care (01) ==
LOC: EC 12:34
DX: J40 Bronchitis, not specified as acute or chronic (principal); E11.9 Type 2 diabetes mellitus without complications; K21.9 Gastro-esophageal reflux disease without esophagitis; E78.5 Hyperlipidemia, unspecified; I10 Essential (primary) hypertension; Z87.891 Personal history of nicotine dependence; Z88.1 Allergy status to other antibiotic agents; Z79.4 Long term (current) use of insulin; Z79.84 Long term (current) use of oral hypoglycemic drugs; Z79.899 Other long term (current) drug therapy; Z20.822 Contact with and (suspected) exposure to COVID-19
CPT/HCPCS: 71046; 87502; 87635; 99285

== ENCOUNTER 2022-01-29 22:35 | Inpatient (IN) | payer MEDICARE ==
[2022-01-29 23:14] LABS: Glucose,Whole Blood >600 mg/dL (70-110)
[2022-01-29 23:51] LABS: Anisocytosis Slight; Basophils # (A) 0.1 k/uL (0-0.2); Basophils % (A) 1 %; Eosinophils # (A) 0.2 k/uL (0-0.7); Eosinophils % (A) 1 %; HCT 39.1 % (34.0-46.0); HGB 11.7 gm/dL (11.4-16.0); Hypochromasia Marked; Lymphocytes # (A) 1.9 k/uL (1.0-4.8); Lymphocytes % (A) 12 %; MCH 22.6 pg (25.0-35.0); MCHC 29.9 g/dL (31.0-37.0); MCV 75.5 fL (80.0-100.0); Mean Platelet Volume 8.3; Microcytosis Moderate; Monocytes # (A) 0.5 k/uL (0-1.0); Monocytes % (A) 3 %; Neutrophils # (A) 13.1 k/uL (1.3-7.7); Neutrophils % (A) 82 %; Platelet Count 609 k/uL (150-450); RBC 5.17 m/uL (3.80-5.40); RDW 19.1 % (11.5-15.5)
[2022-01-29 23:56] LABS: VBG PH 7.42 (7.31-7.41)
[2022-01-30 00:06] LABS: ALT 32 U/L (4-34); African American GFR (CKD) >90 (>60 ml/min/1.73 sqM); Albumin 4.1 g/dL (3.5-5.0); Anion Gap 17 mmol/L; Blood Urea Nitrogen 20 mg/dL (7-17); Calcium 9.3 mg/dL (8.4-10.2); Carbon Dioxide 19 mmol/L (22-30); Chloride 89 mmol/L (98-107); Non-African American GFR(CKD) >90 (>60 ml/min/1.73 sqM); Sodium 125 mmol/L (137-145); Total Bilirubin 0.6 mg/dL (0.2-1.3); Total Protein 7.3 g/dL (6.3-8.2)
[2022-01-30 00:17] LABS: AST 43 U/L (14-36); Alkaline Phosphatase 223 U/L (38-126); Glucose 666 mg/dL (74-99); Potassium 5.8 mmol/L (3.5-5.1)
[2022-01-30 02:43] LABS: Appearance,Urine Clear (Clear); Bilirubin,Urine Negative (Negative); Blood,Urine Negative (Negative); Color,Urine Light Yellow; Glucose,Urine (UA) 4+ (Negative); Ketones,Urine Negative (Negative); Leukocyte Esterase,Urine Negative (Negative); Mucus,Urine Rare /hpf; Nitrite,Urine Negative (Negative); PH, Urine 5.5 (5.0-8.0); Protein,Urine 1+ (Negative); RBC,Urine 1 /hpf (0-5); Specific Gravity,Urine 1.025 (1.001-1.035); Squamous Epithelial Cell,Urine 2 /hpf (0-4); Urobilinogen,Urine <2.0 mg/dL (<2.0); WBC,Urine 1 /hpf (0-5)
[2022-01-30] MEDS ORDERED: SODIUM CHLORIDE 0.9% 1,000 ML IV ONE (03:28)
[2022-01-30] MEDS ORDERED: ONDANSETRON 4 MG/2 ML VIAL IVP STA (03:36)
[2022-01-30] MEDS ORDERED: KETOROLAC 15 MG/ML 1 ML VIAL IVP STA (03:36)
[2022-01-30] MEDS ORDERED: NALOXONE 0.4 MG/ML 1 ML VIAL IV PRN (04:02)
--- NOTE | 2022-01-30 04:02 | ED ---
Nausea/Vomiting/Diarrhea HPI - General Chief complaint: Nausea/Vomiting/Diarrhea Stated complaint: Hyperglycemic Time Seen by Provider: 01/29/22 22:39 Source: patient Mode of arrival: ambulatory Limitations: no limitations - History of Present Illness Initial comments: 51-year-old female with past medical history of diabetes, hypertension presents to the emergency room with nausea, vomiting and elevated glucose. Patient states that she has been nauseated and vomiting at home. Reports that she has been taking her insulin as directed however continues to have high sugar levels. Patient is well-known to the emergency department for similar complaint. Denies fevers. No chest pain, shortness of breath. Denies abdominal pain. No other alleviating, precipitating or modifying factors - Related Data Home Medications Medication Instructions Recorded Confirmed Atorvastatin [Lipitor] 80 mg PO HS 06/25/19 01/30/22 lisinopriL 40 mg PO DAILY 09/24/20 01/30/22 metFORMIN HCL [Glucophage] 500 mg PO DAILY 09/24/20 01/30/22 traZODone HCL 50 - 100 mg PO HS PRN 01/11/21 01/30/22 Ergocalciferol (Vitamin D2) 1,250 mcg PO TU 03/03/21 01/30/22 [Drisdol (50,000 Iu)] Albuterol Inhaler [Ventolin Hfa 2 puff INHALATION RT-QID PRN 07/28/21 01/30/22 Inhaler] INSULIN ASPART (NovoLOG) [NovoLOG 18 unit SQ AC-TID 09/24/21 01/30/22 (formulary)] Esomeprazole Magnesium [NexIUM] 20 mg PO DAILY 01/30/22 01/30/22 Previous Rx's Medication Instructions Recorded Fenofibrate [Lofibra] 160 mg PO DAILY #30 tab 03/23/19 Insulin Detemir (Levemir) [Levemir] 100 unit SQ DAILY@0700 30 Days #1 12/11/21 pen Allergies Allergy/AdvReac Type Severity Reaction Status Date / Time levofloxacin [From Levaquin] Allergy Rash/Hives Verified 01/30/22 07:47 Review of Systems ROS Statement: Those systems with pertinent positive or pertinent negative responses have been documented in the HPI. ROS Other: All systems not noted in ROS Statement are negative. Past Medical History Past Medical History: Diabetes Mellitus, GERD/Reflux, Hyperlipidemia, Hypertension, Syncope Additional Past Medical History / Comment(s): Pt recently admitted to [facility] on 07/21/21 with uncontrolled IDDM and hyperkalemia. Other hx: Recurrent pancreatitis, hypertriglyceridemia, elevated lipase, IDDM type II, UTI, chronic low back pain, bulging discs, dental abscesses in past. History of Any Multi-Drug Resistant Organisms: None Reported Past Surgical History: Tubal Ligation Additional Past Surgical History / Comment(s): Age 7 had VSD repair Past Anesthesia/Blood Transfusion Reactions: No Reported Reaction Past Psychological History: No Psychological Hx Reported Smoking Status: Former smoker Past Alcohol Use History: None Reported Past Drug Use History: None Reported - Past Family History Mother Family Medical History: No Reported History Additional Family Medical History / Comment(s): Mother was healthy. She is , pt cannot recall cause of . Father Family Medical History: Pneumonia Additional Family Medical History / Comment(s): Father at the age of 67yrs from pneumonia General Exam Limitations: no limitations General appearance: alert, in no apparent distress Head exam: Present: atraumatic, normocephalic, normal inspection Eye exam: Present: normal appearance, PERRL, EOMI. Absent: scleral icterus, conjunctival injection, periorbital swelling ENT exam: Present: normal exam, mucous membranes moist Neck exam: Present: normal inspection. Absent: tenderness, meningismus, lymphadenopathy Respiratory exam: Present: normal lung sounds bilaterally. Absent: respiratory distress, wheezes, rales, rhonchi, stridor Cardiovascular Exam: Present: regular rate, normal rhythm, normal heart sounds. Absent: systolic murmur, diastolic murmur, rubs, gallop, clicks GI/Abdominal exam: Present: soft, normal bowel sounds. Absent: distended, tenderness, guarding, rebound, rigid Extremities exam: Present: normal inspection, full ROM, normal capillary refill. Absent: tenderness, pedal edema, joint swelling, calf tenderness Back exam: Present: normal inspection Neurological exam: Present: alert, oriented X3, CN II-XII intact Psychiatric exam: Present: normal affect, normal mood Skin exam: Present: warm, dry, intact, normal color. Absent: rash Course Vital Signs 01/29/22 01/30/22 01/30/22 23:10 03:32 06:44 Temperature 99.6 F Pulse Rate 69 76 72 Pulse Rate [ Air Pollution Engineer ] Respiratory 16 20 18 Rate Blood Pressure 122/71 133/67 155/78 Blood Pressure [Left Arm] O2 Sat by Pulse 98 96 97 Oximetry 01/30/22 01/30/22 01/30/22 09:26 12:43 16:34 Temperature 99.4 F Pulse Rate 63 72 75 Pulse Rate [ Air Pollution Engineer ] Respiratory 18 18 16 Rate Blood Pressure 138/63 146/78 158/81 Blood Pressure [Left Arm] O2 Sat by Pulse 98 96 98 Oximetry 01/30/22 01/30/22 17:15 19:57 Temperature 99.5 F 98.9 F Pulse Rate Pulse Rate [ 86 78 Air Pollution Engineer ] Respiratory 16 16 Rate Blood Pressure Blood Pressure 153/85 113/67 [Left Arm] O2 Sat by Pulse 97 97 Oximetry Medical Decision Making - Medical Decision Making Upon arrival patient is placed into room 7. There are history and physical exam is performed. IV access is established and the patient is given a liter bolus of normal saline. I will try studies were conducted and revealed a white count of 16. Glucose is 666. CO2 low at 19. Anion gap 17. Patient is started on insulin drip. Will be admitted to Dr. Cerda for hyperglycemia. - Lab Data Result diagrams: 01/31/22 16:13 01/31/22 16:13 Lab Results 01/29/22 01/29/22 01/29/22 Range/Units 23:13 23:44 23:44 WBC 16.0 H (3.8-10.6) k/uL RBC 5.17 (3.80-5.40) m/uL Hgb 11.7 (11.4-16.0) gm/dL Hct 39.1 (34.0-46.0) % MCV 75.5 L (80.0-100.0) fL MCH 22.6 L (25.0-35.0) pg MCHC 29.9 L (31.0-37.0) g/dL RDW 19.1 H (11.5-15.5) % Plt Count 609 H (150-450) k/uL MPV 8.3 Neutrophils % 82 % Lymphocytes % 12 % Monocytes % 3 % Eosinophils % 1 % Basophils % 1 % Neutrophils # 13.1 H (1.3-7.7) k/uL Lymphocytes # 1.9 (1.0-4.8) k/uL Monocytes # 0.5 (0-1.0) k/uL Eosinophils # 0.2 (0-0.7) k/uL Basophils # 0.1 (0-0.2) k/uL Hypochromasia Marked Anisocytosis Slight Microcytosis Moderate VBG pH (7.31-7.41) VBG pCO2 (37-51) mmHg VBG HCO3 (24-28) mmol/L Sodium 125 L (137-145) mmol/L Potassium 5.8 H (3.5-5.1) mmol/L Chloride 89 L (98-107) mmol/L Carbon Dioxide 19 L (22-30) mmol/L Anion Gap 17 mmol/L BUN 20 H (7-17) mg/dL Creatinine 0.67 (0.52-1.04) mg/dL Est GFR (CKD-EPI)AfAm >90 (>60 ml/min/1.73 sqM) Est GFR (CKD-EPI)NonAf >90 (>60 ml/min/1.73 sqM) Glucose 666 H* (74-99) mg/dL POC Glucose (mg/dL) >600 H (70-110) mg/dL POC Glu Ring Spinner Ramon Ramirez Calcium 9.3 (8.4-10.2) mg/dL Total Bilirubin 0.6 (0.2-1.3) mg/dL AST 43 H (14-36) U/L ALT 32 (4-34) U/L Alkaline Phosphatase 223 H (38-126) U/L Total Protein 7.3 (6.3-8.2) g/dL Albumin 4.1 (3.5-5.0) g/dL Urine Color Urine Appearance (Clear) Urine pH (5.0-8.0) Ur Specific [place] (1.001-1.035) Urine Protein (Negative) Urine Glucose (UA) (Negative) Urine Ketones (Negative) Urine Blood (Negative) Urine Nitrite (Negative) Urine Bilirubin (Negative) Urine Urobilinogen (<2.0) mg/dL Ur Leukocyte Esterase (Negative) Urine RBC (0-5) /hpf Urine WBC (0-5) /hpf Ur Squamous Epith Cells (0-4) /hpf Urine Mucus (None) /hpf 01/29/22 01/30/22 Range/Units 23:44 02:33 WBC (3.8-10.6) k/uL RBC (3.80-5.40) m/uL Hgb (11.4-16.0) gm/dL Hct (34.0-46.0) % MCV (80.0-100.0) fL MCH (25.0-35.0) pg MCHC (31.0-37.0) g/dL RDW (11.5-15.5) % Plt Count (150-450) k/uL MPV Neutrophils % % Lymphocytes % % Monocytes % % Eosinophils % % Basophils % % Neutrophils # (1.3-7.7) k/uL Lymphocytes # (1.0-4.8) k/uL Monocytes # (0-1.0) k/uL Eosinophils # (0-0.7) k/uL Basophils # (0-0.2) k/uL Hypochromasia Anisocytosis Microcytosis VBG pH 7.42 H (7.31-7.41) VBG pCO2 33 L (37-51) mmHg VBG HCO3 21 L (24-28) mmol/L Sodium (137-145) mmol/L Potassium (3.5-5.1) mmol/L Chloride (98-107) mmol/L Carbon Dioxide (22-30) mmol/L Anion Gap mmol/L BUN (7-17) mg/dL Creatinine (0.52-1.04) mg/dL Est GFR (CKD-EPI)AfAm (>60 ml/min/1.73 sqM) Est GFR (CKD-EPI)NonAf (>60 ml/min/1.73 sqM) Glucose (74-99) mg/dL POC Glucose (mg/dL) (70-110) mg/dL POC Glu Ring Spinner ID Calcium (8.4-10.2) mg/dL Total Bilirubin (0.2-1.3) mg/dL AST (14-36) U/L ALT (4-34) U/L Alkaline Phosphatase (38-126) U/L Total Protein (6.3-8.2) g/dL Albumin (3.5-5.0) g/dL Urine Color Light Yellow Urine Appearance Clear (Clear) Urine pH 5.5 (5.0-8.0) Ur Specific [place] 1.025 (1.001-1.035) Urine Protein 1+ H (Negative) Urine Glucose (UA) 4+ H (Negative) Urine Ketones Negative (Negative) Urine Blood Negative (Negative) Urine Nitrite Negative (Negative) Urine Bilirubin Negative (Negative) Urine Urobilinogen <2.0 (<2.0) mg/dL Ur Leukocyte Esterase Negative (Negative) Urine RBC 1 (0-5) /hpf Urine WBC 1 (0-5) /hpf Ur Squamous Epith Cells 2 (0-4) /hpf Urine Mucus Rare H (None) /hpf Disposition Clinical Impression: Nausea & vomiting, DKA (diabetic ketoacidosis), Leukocytosis Disposition: ADMITTED IP TO THIS [facility] Condition: Stable Is patient prescribed a controlled substance at d/c from ED?: No Time of Disposition: 04:02 Decision to Admit Reason: Admit from EC Decision Date: 01/30/22 Decision Time: 04:02
[2022-01-30 05:12] LABS: Glucose,Whole Blood >600 mg/dL (70-110)
[2022-01-30] MEDS ORDERED: ACETAMINOPHEN TAB 500 MG TAB PO STA (05:28)
[2022-01-30] MEDS: INSULIN REGULAR 100 UNIT in SODIUM CHLORIDE 0.9% 100 ML IV SCH ×2 (05:32→18:19)
[2022-01-30] MEDS: SODIUM CHLORIDE 0.9% 1,000 ML IV SCH ×2 (06:34→20:03)
[2022-01-30 06:38] LABS: Glucose,Whole Blood 548 mg/dL (70-110)
[2022-01-30 07:38] LABS: Glucose,Whole Blood 439 mg/dL (70-110)
[2022-01-30 08:32] LABS: Glucose,Whole Blood 323 mg/dL (70-110)
[2022-01-30] MEDS ORDERED: PANTOPRAZOLE 40 MG/10 ML VIAL IV SCH (09:00)
[2022-01-30 09:32] LABS: Glucose,Whole Blood 267 mg/dL (70-110)
[2022-01-30] MEDS: ONDANSETRON 4 MG/2 ML VIAL IVP PRN ×2 (10:26→18:20)
[2022-01-30 10:29] LABS: Anisocytosis Slight; Basophils % (A) 0 %; Eosinophils # (A) 0.1 k/uL (0-0.7); Eosinophils % (A) 1 %; HCT 35.8 % (34.0-46.0); HGB 11.1 gm/dL (11.4-16.0); Hypochromasia Marked; Lymphocytes % (A) 15 %; MCH 23.1 pg (25.0-35.0); MCHC 31.1 g/dL (31.0-37.0); MCV 74.2 fL (80.0-100.0); Mean Platelet Volume 7.1; Microcytosis Moderate; Monocytes # (A) 0.5 k/uL (0-1.0); Monocytes % (A) 4 %; Neutrophils # (A) 10.1 k/uL (1.3-7.7); Neutrophils % (A) 79 %; Platelet Count 498 k/uL (150-450); RBC 4.82 m/uL (3.80-5.40); RDW 18.6 % (11.5-15.5); WBC 12.8 k/uL (3.8-10.6)
[2022-01-30 10:32] LABS: Glucose,Whole Blood 189 mg/dL (70-110)
[2022-01-30 10:50] LABS: African American GFR (CKD) >90 (>60 ml/min/1.73 sqM); Anion Gap 12 mmol/L; Blood Urea Nitrogen 21 mg/dL (7-17); Carbon Dioxide 24 mmol/L (22-30); Chloride 97 mmol/L (98-107); Glucose 234 mg/dL (74-99); Non-African American GFR(CKD) >90 (>60 ml/min/1.73 sqM); Potassium 4.5 mmol/L (3.5-5.1); Sodium 133 mmol/L (137-145)
[2022-01-30] MEDS ORDERED: NON FORMULARY DRUG (Albuterol Inhaler [Ventolin Hfa Inhaler] 60 PUFF Gm) INHALATION PRN (11:55)
[2022-01-30 12:03] LABS: Glucose,Whole Blood 193 mg/dL (70-110)
[2022-01-30 13:20] LABS: Glucose,Whole Blood 262 mg/dL (70-110)
[2022-01-30 14:12] LABS: Glucose,Whole Blood 371 mg/dL (70-110)
[2022-01-30 14:18] LABS: ALT 28 U/L (4-34); AST 31 U/L (14-36); African American GFR (CKD) >90 (>60 ml/min/1.73 sqM); Albumin 3.6 g/dL (3.5-5.0); Alkaline Phosphatase 182 U/L (38-126); Anion Gap 14 mmol/L; Blood Urea Nitrogen 19 mg/dL (7-17); Calcium 8.8 mg/dL (8.4-10.2); Carbon Dioxide 21 mmol/L (22-30); Chloride 97 mmol/L (98-107); Glucose 361 mg/dL (74-99); Non-African American GFR(CKD) >90 (>60 ml/min/1.73 sqM); Potassium 4.9 mmol/L (3.5-5.1); Sodium 132 mmol/L (137-145); Total Bilirubin 0.5 mg/dL (0.2-1.3); Total Protein 6.5 g/dL (6.3-8.2)
[2022-01-30] MEDS: ACETAMINOPHEN TAB 325 MG TAB PO PRN (15:35)
[2022-01-30 15:36] LABS: Glucose,Whole Blood 338 mg/dL (70-110)
[2022-01-30 16:34] LABS: Glucose,Whole Blood 322 mg/dL (70-110)
[2022-01-30] MEDS: INSULIN ASPART (NovoLOG) 100 UNIT/ML VIAL SQ SCH ×2 (17:19→17:47)
[2022-01-30] MEDS ORDERED: INSULIN DETEMIR (LEVEMIR) 100 UNIT/ML SYR SQ ONE (17:30)
[2022-01-30 18:01] LABS: Glucose,Whole Blood 400 mg/dL (70-110)
[2022-01-30] MEDS: KETOROLAC 15 MG/ML 1 ML VIAL IVP PRN ×2 (18:20→23:18)
[2022-01-30 19:07] LABS: Glucose,Whole Blood 314 mg/dL (70-110)
[2022-01-30] MEDS: traZODone HCL 50 MG TAB PO SCH (20:03)
[2022-01-30 20:04] LABS: Glucose,Whole Blood 337 mg/dL (70-110)
[2022-01-30 21:21] LABS: Glucose,Whole Blood 251 mg/dL (70-110)
[2022-01-30 22:23] LABS: Glucose,Whole Blood 225 mg/dL (70-110)
[2022-01-30 23:02] LABS: Calcium 8.5 mg/dL (8.4-10.2); Potassium 4.1 mmol/L (3.5-5.1)
[2022-01-30 23:04] LABS: Glucose,Whole Blood 189 mg/dL (70-110)
[2022-01-31 00:30] LABS: Glucose,Whole Blood 165 mg/dL (70-110)
[2022-01-31] MEDS: INSULIN REGULAR 100 UNIT in SODIUM CHLORIDE 0.9% 100 ML IV SCH ×3 (00:36→18:56)
[2022-01-31 01:29] LABS: Glucose,Whole Blood 152 mg/dL (70-110)
[2022-01-31 02:30] LABS: Glucose,Whole Blood 156 mg/dL (70-110)
[2022-01-31 04:15] LABS: Glucose,Whole Blood 159 mg/dL (70-110)
[2022-01-31] MEDS: KETOROLAC 15 MG/ML 1 ML VIAL IVP PRN ×5 (04:28→23:13)
[2022-01-31 05:29] LABS: Glucose,Whole Blood 158 mg/dL (70-110)
[2022-01-31 06:11] LABS: Glucose,Whole Blood 220 mg/dL (70-110)
[2022-01-31] MEDS: INSULIN ASPART (NovoLOG) 100 UNIT/ML VIAL SQ SCH ×5 (06:13→22:20)
--- NOTE | 2022-01-31 07:11 | HP ---
HISTORY AND PHYSICAL CHIEF COMPLAINT: Diabetic ketoacidosis. HISTORY OF PRESENT ILLNESS: This is another admission for this 51-year-old white female, who is a very noncompliant diabetic. She does not come to the office. She does not take her medications appropriately, which is the case this time and she comes in with a blood sugar of over 600. She is not nauseated, or vomiting, and she is having epigastric pain. REVIEW OF SYSTEMS: Otherwise unremarkable. Past medical history, family history and personal and social histories are all otherwise unremarkable and unchanged. She does have a history of pancreatitis related to hypertriglyceridemia. MEDICATIONS: Supposed to include, 1. Levemir 100 units once a day. 2. Pantoprazole 40 mg once a day. 3. NovoLog 18 units 3 times a day. 4. Albuterol HFA. 5. Trazodone 50 mg at bedtime p.r.n. 6. Lisinopril 40 once a day. 7. Atorvastatin 80 once a day. 8. Fenofibrate 160 mg once a day. 9. Vitamin D 50,000 units a month. 10.Metformin 500 mg once a day. PHYSICAL EXAMINATION: VITAL SIGNS: Blood pressure is 100/55 with a pulse of 96 and regular, respirations is 36 and she is afebrile. GENERAL: She appeared to be dehydrated. She is overweight. She is awake and alert. HEAD, EARS, EYES, NOSE, MOUTH AND THROAT: Normal except for dry mucous membranes. NECK: Neck veins were not distended. CHEST: Clear. CARDIAC: Demonstrated sinus tachycardia. ABDOMEN: Protuberant, soft and nontender. Bowel sounds are present. EXTREMITIES: Normal. NEUROLOGICAL: She is intact. ASSESSMENT: She is admitted to the hospital with diagnosis of: 1. Diabetic ketoacidosis. 2. Noncompliant type 2 insulin-dependent diabetic. 3. Obesity. 4. History of depression. PLAN: 1. Bedrest in regular medical bed. 2. DKA protocol. 3. Obtain lipase and triglyceride. MMODL / IJN: [id number] /
[2022-01-31 07:54] LABS: Glucose,Whole Blood 186 mg/dL (70-110)
[2022-01-31 09:05] LABS: Glucose,Whole Blood 185 mg/dL (70-110)
[2022-01-31 09:16] LABS: African American GFR (CKD) >90 (>60 ml/min/1.73 sqM); Anion Gap 10 mmol/L; Blood Urea Nitrogen 18 mg/dL (7-17); Calcium 8.4 mg/dL (8.4-10.2); Carbon Dioxide 22 mmol/L (22-30); Chloride 102 mmol/L (98-107); Glucose 184 mg/dL (74-99); Non-African American GFR(CKD) >90 (>60 ml/min/1.73 sqM); Potassium 4.6 mmol/L (3.5-5.1); Sodium 134 mmol/L (137-145)
[2022-01-31 09:55] LABS: Glucose,Whole Blood 232 mg/dL (70-110)
[2022-01-31] MEDS: lisinopriL 20 MG TAB PO SCH (10:20)
[2022-01-31] MEDS: metFORMIN 500 MG TAB PO SCH (10:20)
[2022-01-31] MEDS: PANTOPRAZOLE 40 MG TABLET PO SCH (10:24)
[2022-01-31] MEDS: SODIUM CHLORIDE 0.9% 1,000 ML IV SCH ×2 (10:24→17:39)
[2022-01-31 10:48] LABS: Glucose,Whole Blood 242 mg/dL (70-110)
[2022-01-31 11:10] LABS: Glucose,Whole Blood 257 mg/dL (70-110)
[2022-01-31 12:00] LABS: Glucose,Whole Blood 253 mg/dL (70-110)
[2022-01-31] MEDS: INSULIN DETEMIR (LEVEMIR) 100 UNIT/ML SYR SQ SCH (12:48)
[2022-01-31 13:12] LABS: Glucose,Whole Blood 335 mg/dL (70-110)
[2022-01-31 14:06] LABS: Glucose,Whole Blood 273 mg/dL (70-110)
[2022-01-31 16:22] LABS: Glucose,Whole Blood 259 mg/dL (70-110)
[2022-01-31 16:50] LABS: Anisocytosis Slight; Basophils % (A) 0 %; Eosinophils # (A) 0.2 k/uL (0-0.7); Eosinophils % (A) 2 %; HGB 10.1 gm/dL (11.4-16.0); Hypochromasia Marked; Lymphocytes # (A) 1.9 k/uL (1.0-4.8); Lymphocytes % (A) 17 %; MCH 22.6 pg (25.0-35.0); MCHC 29.6 g/dL (31.0-37.0); MCV 76.5 fL (80.0-100.0); Mean Platelet Volume 7.4; Microcytosis Moderate; Monocytes # (A) 0.5 k/uL (0-1.0); Monocytes % (A) 4 %; Neutrophils # (A) 8.3 k/uL (1.3-7.7); Neutrophils % (A) 75 %; Platelet Count 417 k/uL (150-450); RBC 4.44 m/uL (3.80-5.40); WBC 11.1 k/uL (3.8-10.6)
[2022-01-31 17:02] LABS: ALT 22 U/L (4-34); AST 29 U/L (14-36); African American GFR (CKD) >90 (>60 ml/min/1.73 sqM); Alkaline Phosphatase 145 U/L (38-126); Anion Gap 13 mmol/L; Blood Urea Nitrogen 18 mg/dL (7-17); Calcium 8.2 mg/dL (8.4-10.2); Carbon Dioxide 21 mmol/L (22-30); Chloride 100 mmol/L (98-107); Glucose 256 mg/dL (74-99); Non-African American GFR(CKD) >90 (>60 ml/min/1.73 sqM); Potassium 4.7 mmol/L (3.5-5.1); Sodium 134 mmol/L (137-145); Total Bilirubin 0.2 mg/dL (0.2-1.3); Total Protein 5.7 g/dL (6.3-8.2)
[2022-01-31 17:02] LABS: Glucose,Whole Blood 310 mg/dL (70-110)
[2022-01-31 17:31] LABS: Lipase 6840 U/L (23-300)
[2022-01-31 17:59] LABS: Glucose,Whole Blood 374 mg/dL (70-110)
[2022-01-31 19:04] LABS: Glucose,Whole Blood 265 mg/dL (70-110)
[2022-01-31 20:03] LABS: Glucose,Whole Blood 231 mg/dL (70-110)
[2022-01-31] MEDS: traZODone HCL 50 MG TAB PO SCH (20:33)
[2022-01-31 21:03] LABS: Glucose,Whole Blood 245 mg/dL (70-110)
[2022-01-31 22:06] LABS: Glucose,Whole Blood 229 mg/dL (70-110)
[2022-01-31 22:15] LABS: Glucose,Whole Blood 259 mg/dL (70-110)
[2022-02-01 02:06] LABS: Glucose,Whole Blood 198 mg/dL (70-110)
[2022-02-01] MEDS: ONDANSETRON 4 MG/2 ML VIAL IVP PRN (03:02)
[2022-02-01] MEDS: KETOROLAC 15 MG/ML 1 ML VIAL IVP PRN ×5 (03:34→21:04)
[2022-02-01 06:07] LABS: Glucose,Whole Blood 138 mg/dL (70-110)
[2022-02-01] MEDS: INSULIN DETEMIR (LEVEMIR) 100 UNIT/ML SYR SQ SCH (06:19)
[2022-02-01] MEDS: metFORMIN 500 MG TAB PO SCH (08:00)
[2022-02-01] MEDS: lisinopriL 20 MG TAB PO SCH (08:00)
[2022-02-01] MEDS: PANTOPRAZOLE 40 MG TABLET PO SCH (08:00)
[2022-02-01] MEDS: INSULIN ASPART (NovoLOG) 100 UNIT/ML VIAL SQ SCH ×7 (08:05→21:03)
[2022-02-01 11:40] LABS: Glucose,Whole Blood 174 mg/dL (70-110)
[2022-02-01] MEDS: SODIUM CHLORIDE 0.9% 1,000 ML IV SCH ×2 (12:36→18:25)
[2022-02-01 13:16] VITALS: BMI 44.3
[2022-02-01 16:54] LABS: Glucose,Whole Blood 215 mg/dL (70-110)
--- NOTE | 2022-02-01 19:56 | PN ---
PROGRESS NOTE CHIEF COMPLAINT: DKA. HISTORY OF PRESENT ILLNESS: This lady's sugars are coming down. She is now on a basal bolus regimen. Blood sugars are still slightly high, but they will come down. She is complaining of a lot of abdominal pain, which is upper, then down the left side, then back up the right side. Lipase was ordered the other day, but apparently was not done. PHYSICAL EXAMINATION: ABDOMEN: Distended, and she has slight generalized tenderness CHEST: Clear. CARDIAC: Normal. IMPRESSION: 1. Diabetic ketoacidosis. 2. Abdominal pain. 3. History of pancreatitis. PLAN: Order lipase again and continue to follow her blood sugars and her abdominal pain. She does have a low-grade fever. MMODL / IJN: [id number] /
[2022-02-01 20:05] LABS: Glucose,Whole Blood 189 mg/dL (70-110)
[2022-02-01] MEDS: traZODone HCL 50 MG TAB PO SCH (21:04)
--- NOTE | 2022-02-01 21:47 | CT ---
EXAMINATION TYPE: CT abdomen wo con DATE OF EXAM: 02/01/2022 HISTORY: nausea, vomiting, pancreatitis. CT DLP: 837.6 mGycm. Automated Exposure Control for Dose Reduction was Utilized. TECHNIQUE: CT scan of the abdomen and pelvis is performed without oral or IV contrast. COMPARISON: 12/11/2021 FINDINGS: Within the limitations of a non-contrast study, the following observations are made. LUNG BASES: No acute process. LIVER/GB: There is diffuse fatty infiltration of the liver with moderate hepatomegaly, which is predo minantly in the caudate lobe and the lateral segment left hepatic lobe. Gallbladder is seen but the i ntrahepatic and extrahepatic biliary tree cannot be visualized. PANCREAS: Pancreas has lost its normal acinar anatomy since the prior study, and it is now moderately swollen and indistinct in its head, uncinate process, neck, body and tail. Findings are consistent w ith pancreatitis. Pancreatic ductal anatomy cannot be visualized There are no associated abnormal flu id or gas collections. SPLEEN: Splenic volume is top normal. No focal findings. ADRENALS: No significant abnormality is seen. KIDNEYS: No significant abnormality is seen. BOWEL: No significant abnormality is seen. LYMPH NODES: No greater than 1cm abdominal or pelvic lymph nodes are appreciated. OSSEOUS STRUCTURES: No significant abnormality is seen. IMPRESSION: Findings consistent with pancreatitis.
[2022-02-02] MEDS: KETOROLAC 15 MG/ML 1 ML VIAL IVP PRN ×5 (01:14→17:42)
[2022-02-02 03:05] LABS: Glucose,Whole Blood 321 mg/dL (70-110)
[2022-02-02] MEDS: ONDANSETRON 4 MG/2 ML VIAL IVP PRN (05:40)
[2022-02-02 06:07] LABS: Glucose,Whole Blood 304 mg/dL (70-110)
[2022-02-02] MEDS: PANTOPRAZOLE 40 MG TABLET PO SCH (07:11)
[2022-02-02] MEDS: INSULIN ASPART (NovoLOG) 100 UNIT/ML VIAL SQ SCH ×7 (07:11→21:04)
[2022-02-02] MEDS: INSULIN DETEMIR (LEVEMIR) 100 UNIT/ML SYR SQ SCH (07:58)
[2022-02-02] MEDS: metFORMIN 500 MG TAB PO SCH (10:01)
[2022-02-02] MEDS: lisinopriL 20 MG TAB PO SCH (10:01)
[2022-02-02 12:05] LABS: Glucose,Whole Blood 183 mg/dL (70-110)
[2022-02-02] MEDS: SODIUM CHLORIDE 0.9% 1,000 ML IV SCH (12:43)
[2022-02-02 16:48] LABS: Glucose,Whole Blood 237 mg/dL (70-110)
--- NOTE | 2022-02-02 18:11 | P.PN ---
Subjective Progress Note Date: 02/02/22 51-year-old female with past medical history of diabetes, hypertension presents to the emergency room with nausea, vomiting and elevated glucose. Patient states that she has been nauseated and vomiting at home. Reports that she has been taking her insulin as directed however continues to have high sugar levels. Patient is well-known to the emergency department for similar complaint. Denies fevers. No chest pain, shortness of breath. Denies abdominal pain. No other alleviating, precipitating or modifying factors Objective - Vital Signs Vital signs: Vital Signs Temp 97.6 F 02/02/22 12:40 Pulse 61 02/02/22 12:40 Resp 17 02/02/22 12:40 BP 154/63 02/02/22 12:40 Pulse Ox 97 02/02/22 12:40 FiO2 Intake & Output 02/01/22 02/02/22 02/02/22 18:59 06:59 18:59 Intake Total 520 173 Balance 520 173 Weight 102.965 kg Intake: IV 10 Invasive Line 1 10 Oral 520 163 Other: Voiding Method Toilet Toilet # Voids 2 2 1 # Bowel Movements 1 1 - Exam PHYSICAL EXAMINATION: GENERAL: The patient is alert and oriented x3, not in any acute distress. Well developed, well nourished. HEENT: Pupils are round and equally reacting to light. EOMI. No scleral icterus. No conjunctival pallor. Normocephalic, atraumatic. No pharyngeal erythema. No thyromegaly. CARDIOVASCULAR: S1 and S2 present. No murmurs, rubs, or gallops. PULMONARY: Chest is clear to auscultation, no wheezing or crackles. ABDOMEN: Soft, nontender, nondistended, normoactive bowel sounds. No palpable organomegaly. MUSCULOSKELETAL: No joint swelling or deformity. EXTREMITIES: No cyanosis, clubbing, or pedal edema. NEUROLOGICAL: Gross neurological examination did not reveal any focal deficits. SKIN: No rashes. - Labs CBC & Chem 7: 01/31/22 16:13 01/31/22 16:13 Labs: Abnormal Lab Results - Last 24 Hours (Table) 02/01/22 02/01/22 02/01/22 Range/Units 16:43 16:53 20:04 POC Glucose (mg/dL) 215 H 189 H (70-110) mg/dL Triglycerides 584.00 H (0.00-149.00) mg/dL 02/02/22 02/02/22 02/02/22 Range/Units 03:03 06:06 11:52 POC Glucose (mg/dL) 321 H 304 H 183 H (70-110) mg/dL Triglycerides (0.00-149.00) mg/dL Assessment and Plan Assessment: 1. Acute diabetic ketoacidosis; resolved 2. Acute pancreatitis; patient continues to report severe abdominal pain; Last blood work completed on 01/31/2022 reveals lipase level of 6840; we will repeat lipase level tomorrow morning 3. Persistent hyperglycemia/uncontrolled diabetes; continue adjustment and m onitoring 4. Hyponatremia; sodium level stable at 134 5. Hyperkalemia; potassium 4.7; we will continue to monitor We will plan to discharge patient in next 24 hours if remains stable
[2022-02-02 19:38] LABS: Glucose,Whole Blood 306 mg/dL (70-110)
[2022-02-02] MEDS: traZODone HCL 50 MG TAB PO SCH (21:03)
[2022-02-02] MEDS: ACETAMINOPHEN TAB 325 MG TAB PO PRN (21:03)
--- NOTE | 2022-02-02 23:49 | PN ---
PROGRESS NOTE DATE OF SERVICE: 02/01/2022 CHIEF COMPLAINT: DKA. HISTORY OF PRESENT ILLNESS: This lady is feeling a bit better. Her hemoglobin A1c came back at 15.1. Her abdominal pain seems to be slightly better today. Sugars are still high, but they are responding. Her lipase came back over 700. PHYSICAL EXAMINATION: CHEST: Clear. CARDIAC: Normal. 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 Bowel sounds are present. IMPRESSION: 1. Diabetic ketoacidosis. 2. Chronic relapsing pancreatitis. 3. Uncontrolled type 2 insulin-dependent diabetes mellitus due to noncompliance. 4. Hypertriglyceridemia. PLAN: Await results of triglycerides and continue to try to bring her blood sugars down before she is able to leave. Her abdominal pain is less today and there is less tenderness. MMODL / IJN: [id number] /
[2022-02-03 05:57] LABS: Glucose,Whole Blood 301 mg/dL (70-110)
[2022-02-03] MEDS: SODIUM CHLORIDE 0.9% 1,000 ML IV SCH ×2 (06:07→17:25)
[2022-02-03] MEDS: INSULIN DETEMIR (LEVEMIR) 100 UNIT/ML SYR SQ SCH (07:35)
[2022-02-03] MEDS: INSULIN ASPART (NovoLOG) 100 UNIT/ML VIAL SQ SCH ×7 (07:35→20:23)
[2022-02-03] MEDS: PANTOPRAZOLE 40 MG TABLET PO SCH (07:36)
[2022-02-03] MEDS: lisinopriL 20 MG TAB PO SCH (08:53)
[2022-02-03] MEDS: ACETAMINOPHEN TAB 325 MG TAB PO PRN ×3 (08:54→20:22)
[2022-02-03] MEDS: metFORMIN 500 MG TAB PO SCH (08:54)
[2022-02-03 09:27] LABS: African American GFR (CKD) >90 (>60 ml/min/1.73 sqM); Anion Gap 11 mmol/L; Blood Urea Nitrogen 14 mg/dL (7-17); Calcium 8.5 mg/dL (8.4-10.2); Carbon Dioxide 22 mmol/L (22-30); Chloride 102 mmol/L (98-107); Glucose 386 mg/dL (74-99); Non-African American GFR(CKD) >90 (>60 ml/min/1.73 sqM); Potassium 4.9 mmol/L (3.5-5.1); Sodium 135 mmol/L (137-145)
[2022-02-03 11:38] LABS: Lipase 4343 U/L (23-300)
--- NOTE | 2022-02-03 16:02 | P.PN ---
Subjective Progress Note Date: 02/03/22 Principal diagnosis: Acute diabetic ketoacidosis Acute pancreatitis Persistent hyperglycemia/uncontrolled diabetes Hyponatremia 51-year-old female with past medical history of diabetes, hypertension presents to the emergency room with nausea, vomiting and elevated glucose. Patient states that she has been nauseated and vomiting at home. Reports that she has been taking her insulin as directed however continues to have high sugar levels. Patient is well-known to the emergency department for similar complaint. Denies fevers. No chest pain, shortness of breath. Denies abdominal pain. No other alleviating, precipitating or modifying factors 02/03/2022 Patient is seen and evaluated in the room sitting up in bed; continues to complain of abdominal pain Vital signs reviewed reveal temperature of 98.8, pulse 64, respiration 18 and blood pressure of 158/91, O2 saturation of 98% on room air Lab review shows sodium 135, potassium 4.9, BUN/creatinine of 14/0.65; blood glucose remains elevated in the 300s We will plan to repeat lipase; we will increase insulin aspart from 18 units every before meals and at bedtime up to 22 units subcutaneously before meals and at bedtime Possible discharge in next 24 hours if remains stable Objective - Vital Signs Vital signs: Vital Signs Temp 98.0 F 02/03/22 04:00 Pulse 64 02/03/22 04:00 Resp 18 02/03/22 04:00 BP 138/79 02/03/22 04:00 Pulse Ox 98 02/03/22 04:00 FiO2 Intake & Output 02/02/22 02/03/22 02/03/22 18:59 06:59 18:59 Intake Total 426 20 365 Balance 426 20 365 Intake: IV 20 20 Invasive Line 1 20 20 Oral 406 365 Other: Voiding Method Toilet Toilet # Voids 1 1 # Bowel Movements 1 - Exam PHYSICAL EXAMINATION: GENERAL: The patient is alert and oriented x3, not in any acute distress. Well developed, well nourished. HEENT: Pupils are round and equally reacting to light. EOMI. No scleral icterus. No conjunctival pallor. Normocephalic, atraumatic. No pharyngeal erythema. No thyromegaly. CARDIOVASCULAR: S1 and S2 present. No murmurs, rubs, or gallops. PULMONARY: Chest is clear to auscultation, no wheezing or crackles. ABDOMEN: Soft, nontender, nondistended, normoactive bowel sounds. No palpable organomegaly. MUSCULOSKELETAL: No joint swelling or deformity. EXTREMITIES: No cyanosis, clubbing, or pedal edema. NEUROLOGICAL: Gross neurological examination did not reveal any focal deficits. SKIN: No rashes. - Labs CBC & Chem 7: 01/31/22 16:13 02/03/22 08:52 Labs: Abnormal Lab Results - Last 24 Hours (Table) 02/02/22 02/02/22 02/02/22 Range/Units 11:52 16:46 19:37 Sodium (137-145) mmol/L Glucose (74-99) mg/dL POC Glucose (mg/dL) 183 H 237 H 306 H (70-110) mg/dL 02/03/22 02/03/22 Range/Units 05:56 08:52 Sodium 135 L (137-145) mmol/L Glucose 386 H (74-99) mg/dL POC Glucose (mg/dL) 301 H (70-110) mg/dL Assessment and Plan Assessment: 1. Acute diabetic ketoacidosis; resolved 2. Acute pancreatitis; patient continues to report severe abdominal pain; Last blood work completed on 01/31/2022 reveals lipase level of 6840; we will repeat lipase level tomorrow morning 3. Persistent hyperglycemia/uncontrolled diabetes; continue adjustment and monitoring 4. Hyponatremia; sodium level stable at 134 5. Hyperkalemia; potassium 4.7; we will continue to monitor We will plan to discharge patient in next 24 hours if remains stable
[2022-02-03 16:51] LABS: Glucose,Whole Blood 208 mg/dL (70-110)
[2022-02-03 20:15] LABS: Glucose,Whole Blood 312 mg/dL (70-110)
[2022-02-03] MEDS: traZODone HCL 50 MG TAB PO SCH (20:22)
[2022-02-04 06:11] LABS: Glucose,Whole Blood 270 mg/dL (70-110)
[2022-02-04] MEDS: PANTOPRAZOLE 40 MG TABLET PO SCH (06:38)
[2022-02-04] MEDS: INSULIN ASPART (NovoLOG) 100 UNIT/ML VIAL SQ SCH ×7 (06:39→21:19)
[2022-02-04] MEDS: INSULIN DETEMIR (LEVEMIR) 100 UNIT/ML SYR SQ SCH (06:39)
[2022-02-04] MEDS: SODIUM CHLORIDE 0.9% 1,000 ML IV SCH ×3 (06:40→21:19)
[2022-02-04] MEDS: lisinopriL 20 MG TAB PO SCH (09:04)
[2022-02-04] MEDS: metFORMIN 500 MG TAB PO SCH (09:04)
[2022-02-04 11:48] LABS: Glucose,Whole Blood 320 mg/dL (70-110)
--- NOTE | 2022-02-04 13:57 | CT ---
EXAMINATION TYPE: CT abdomen wo con DATE OF EXAM: 02/04/2022 COMPARISON: CT 02/01/2022 INDICATION: pain DLP: 811.8 mGycm, Automated exposure control for dose reduction was used. CONTRAST: 0 mL of Isovue 300. Study performed without Oral Contrast TECHNIQUE: Axial images were obtained from above the diaphragm to the pubic rami in the axial plane a t 5 mm thick sections. Reconstructed images are reviewed on the computer in the coronal plane. FINDINGS: Limited CT sections are obtained the lung bases. The lung bases are clear. CT ABDOMEN: Liver: There is mild fatty infiltration liver. Spleen: Normal Pancreas: Normal no suspicious inflammatory changes cysts or masses are evident. No pseudocyst format ion is evident. Clinical management is recommended with correlation with laboratory results. Previous inflammatory changes adjacent to the pancreas have resolved. Adrenal glands: The adrenal glands are normal. Gallbladder: Normal Kidneys: No masses are evident. No hydronephrosis is present. No cysts are present. No renal stone s are identified. Aorta: Normal Inferior vena cava: Normal. Loops of bowel within the abdomen and upper pelvis are normal. IMPRESSIONS: 1. Resolution of previous radiographic findings of acute pancreatitis. 2. Mild fatty infiltration of the liver.
[2022-02-04 16:49] LABS: Glucose,Whole Blood 188 mg/dL (70-110)
[2022-02-04] MEDS: ACETAMINOPHEN TAB 325 MG TAB PO PRN (18:02)
--- NOTE | 2022-02-04 18:13 | P.PN ---
Subjective Progress Note Date: 02/04/22 Principal diagnosis: Acute diabetic ketoacidosis Acute pancreatitis Persistent hyperglycemia/uncontrolled diabetes Hyponatremia 51-year-old female with past medical history of diabetes, hypertension presents to the emergency room with nausea, vomiting and elevated glucose. Patient states that she has been nauseated and vomiting at home. Reports that she has been taking her insulin as directed however continues to have high sugar levels. Patient is well-known to the emergency department for similar complaint. Denies fevers. No chest pain, shortness of breath. Denies abdominal pain. No other alleviating, precipitating or modifying factors 02/03/2022 Patient is seen and evaluated in the room sitting up in bed; continues to complain of abdominal pain Vital signs reviewed reveal temperature of 98.8, pulse 64, respiration 18 and blood pressure of 158/91, O2 saturation of 98% on room air Lab review shows sodium 135, potassium 4.9, BUN/creatinine of 14/0.65; blood glucose remains elevated in the 300s We will plan to repeat lipase; we will increase insulin aspart from 18 units every before meals and at bedtime up to 22 units subcutaneously before meals and at bedtime Possible discharge in next 24 hours if remains stable 02/04/2022 Patient is seen and evaluated; resting in bed; reports worsening abdominal pain especially with eating Lab review reveals lipase that is trending down from 6840 down to 3104 Given continued abdominal pain we will make patient nothing by mouth; started on fluids normal saline at rate of 130 mL an hour Repeat CT of the abdomen for evaluation of acute pancreatitis -- CT of the abdomen completed reveals resolution of previous findings of acute pancreatitis - We will repeat lipase for tomorrow morning; patient can be discharged home if lipase is continuing to trend down Objective - Vital Signs Vital signs: Vital Signs Temp 98.1 F 02/04/22 08:00 Pulse 74 02/04/22 08:00 Resp 18 02/04/22 08:00 BP 141/75 02/04/22 08:00 Pulse Ox 96 02/04/22 08:00 FiO2 Intake & Output 02/03/22 02/04/22 02/04/22 18:59 06:59 18:59 Intake Total 605 360 125 Balance 605 360 125 Intake: Oral 605 360 125 Other: Voiding Method Toilet Toilet Toilet # Voids 1 - Exam PHYSICAL EXAMINATION: GENERAL: The patient is alert and oriented x3, not in any acute distress. Well developed, well nourished. HEENT: Pupils are round and equally reacting to light. EOMI. No scleral icterus. No conjunctival pallor. Normocephalic, atraumatic. No pharyngeal erythema. No thyromegaly. CARDIOVASCULAR: S1 and S2 present. No murmurs, rubs, or gallops. PULMONARY: Chest is clear to auscultation, no wheezing or crackles. ABDOMEN: Soft, nontender, nondistended, normoactive bowel sounds. No palpable o rganomegaly. MUSCULOSKELETAL: No joint swelling or deformity. EXTREMITIES: No cyanosis, clubbing, or pedal edema. NEUROLOGICAL: Gross neurological examination did not reveal any focal deficits. SKIN: No rashes. - Labs CBC & Chem 7: 01/31/22 16:13 02/03/22 08:52 Labs: Abnormal Lab Results - Last 24 Hours (Table) 02/03/22 02/03/22 02/04/22 Range/Units 16:35 20:13 05:54 POC Glucose (mg/dL) 208 H 312 H (70-110) mg/dL Lipase 3104 H (23-300) U/L 02/04/22 02/04/22 Range/Units 06:09 11:46 POC Glucose (mg/dL) 270 H 320 H (70-110) mg/dL Lipase (23-300) U/L Assessment and Plan Assessment: 1. Acute diabetic ketoacidosis; resolved 2. Acute pancreatitis; patient continues to report severe abdominal pain; Last blood work completed on 01/31/2022 reveals lipase level of 6840; we will repeat lipase level tomorrow morning 3. Persistent hyperglycemia/uncontrolled diabetes; continue adjustment and monitoring 4. Hyponatremia; sodium level stable at 134 5. Hyperkalemia; potassium 4.7; we will continue to monitor We will plan to discharge patient in next 24 hours if remains stable
[2022-02-04] MEDS: traZODone HCL 50 MG TAB PO SCH (20:33)
[2022-02-04 20:50] LABS: Glucose,Whole Blood 244 mg/dL (70-110)
[2022-02-05 06:06] LABS: Glucose,Whole Blood 245 mg/dL (70-110)
[2022-02-05] MEDS: SODIUM CHLORIDE 0.9% 1,000 ML IV SCH ×3 (06:50→14:55)
[2022-02-05] MEDS: INSULIN ASPART (NovoLOG) 100 UNIT/ML VIAL SQ SCH ×7 (06:52→21:27)
[2022-02-05] MEDS: PANTOPRAZOLE 40 MG TABLET PO SCH (06:52)
[2022-02-05] MEDS: INSULIN DETEMIR (LEVEMIR) 100 UNIT/ML SYR SQ SCH (06:52)
[2022-02-05 08:01] LABS: Anisocytosis Slight; Basophils # (A) 0.1 k/uL (0-0.2); Basophils % (A) 1 %; Eosinophils # (A) 0.2 k/uL (0-0.7); Eosinophils % (A) 2 %; HCT 39.4 % (34.0-46.0); HGB 11.8 gm/dL (11.4-16.0); Hypochromasia Marked; Lymphocytes # (A) 2.4 k/uL (1.0-4.8); Lymphocytes % (A) 26 %; MCH 23.4 pg (25.0-35.0); Microcytosis Slight; Monocytes # (A) 0.4 k/uL (0-1.0); Monocytes % (A) 4 %; Neutrophils # (A) 6.4 k/uL (1.3-7.7); Neutrophils % (A) 67 %; Platelet Count 506 k/uL (150-450); RBC 5.06 m/uL (3.80-5.40); RDW 18.9 % (11.5-15.5); WBC 9.5 k/uL (3.8-10.6)
[2022-02-05 08:13] LABS: African American GFR (CKD) >90 (>60 ml/min/1.73 sqM); Anion Gap 12 mmol/L; Blood Urea Nitrogen 20 mg/dL (7-17); Calcium 9.1 mg/dL (8.4-10.2); Carbon Dioxide 23 mmol/L (22-30); Chloride 100 mmol/L (98-107); Glucose 249 mg/dL (74-99); Non-African American GFR(CKD) >90 (>60 ml/min/1.73 sqM); Sodium 135 mmol/L (137-145)
[2022-02-05 08:55] LABS: Glucose,Whole Blood 231 mg/dL (70-110)
[2022-02-05 08:56] LABS: Lipase 2170 U/L (23-300)
[2022-02-05 09:22] LABS: HCG,Qualitative Serum Not Detected
[2022-02-05] MEDS: ACETAMINOPHEN TAB 325 MG TAB PO PRN ×2 (09:29→21:28)
[2022-02-05] MEDS: lisinopriL 20 MG TAB PO SCH (09:29)
[2022-02-05] MEDS: metFORMIN 500 MG TAB PO SCH ×2 (09:29→21:27)
[2022-02-05 11:45] LABS: Glucose,Whole Blood 295 mg/dL (70-110)
--- NOTE | 2022-02-05 13:03 | P.PN ---
Subjective 51-year-old female with past medical history of diabetes, hypertension presents to the emergency room with nausea, vomiting and elevated glucose. Patient states that she has been nauseated and vomiting at home. Reports that she has been taking her insulin as directed however continues to have high sugar levels. Patient is well-known to the emergency department for similar complaint. Denies fevers. No chest pain, shortness of breath. Denies abdominal pain. No other alleviating, precipitating or modifying factors 02/03/2022 Patient is seen and evaluated in the room sitting up in bed; continues to complain of abdominal pain Vital signs reviewed reveal temperature of 98.8, pulse 64, respiration 18 and blood pressure of 158/91, O2 saturation of 98% on room air Lab review shows sodium 135, potassium 4.9, BUN/creatinine of 14/0.65; blood glucose remains elevated in the 300s We will plan to repeat lipase; we will increase insulin aspart from 18 units every before meals and at bedtime up to 22 units subcutaneously before meals and at bedtime Possible discharge in next 24 hours if remains stable 02/04/2022 Patient is seen and evaluated; resting in bed; reports worsening abdominal pain especially with eating Lab review reveals lipase that is trending down from 6840 down to 3104 Given continued abdominal pain we will make patient nothing by mouth; started on fluids normal saline at rate of 130 mL an hour Repeat CT of the abdomen for evaluation of acute pancreatitis -- CT of the abdomen completed reveals resolution of previous findings of acute pancreatitis - We will repeat lipase for tomorrow morning; patient can be discharged home if lipase is continuing to trend down 02/05/2022 Patient still complained from abdominal pain 10/15. She was not undyed this morning, we will advance diet as tolerated and monitor for tomorrow Also she agrees to increase metformin to 500 mg twice a day and to start Lipitor 20 mg at bedtime for her high triglycerides She remains on normal saline at 1:30 millimeter per hour Consults GI service. Objective - Vital Signs Vital signs: Vital Signs Temp 97.3 F L 02/05/22 07:55 Pulse 72 02/05/22 07:55 Resp 18 02/05/22 07:55 BP 143/67 02/05/22 07:55 Pulse Ox 98 02/05/22 07:55 FiO2 Intake & Output 02/04/22 02/05/22 02/05/22 18:59 06:59 18:59 Intake Total 712 720 118 Balance 712 720 118 Intake: Oral 712 720 118 Other: Voiding Method Toilet Toilet # Voids 2 - Exam GENERAL: The patient is alert and oriented x3, not in any acute distress. Well developed, well nourished. HEENT: Pupils are round and equally reacting to light. EOMI. No scleral icterus. No conjunctival pallor. Normocephalic, atraumatic. No pharyngeal erythema. No thyromegaly. CARDIOVASCULAR: S1 and S2 present. No murmurs, rubs, or gallops. PULMONARY: Chest is clear to auscultation, no wheezing or crackles. -ABDOMEN: Soft, mild epigastric tenderness with no guarding or rebound tenderness, nondistended, normoactive bowel sounds. No palpable organomegaly. MUSCULOSKELETAL: No joint swelling or deformity. EXTREMITIES: No cyanosis, clubbing, or pedal edema. NEUROLOGICAL: Gross neurological examination did not reveal any focal deficits. SKIN: No rashes. no petechiae. - Labs CBC & Chem 7: 02/05/22 07:30 02/05/22 07:30 Labs: Abnormal Lab Results - Last 24 Hours (Table) 02/03/22 02/04/22 02/04/22 Range/Units 11:51 11:46 16:48 MCV (80.0-100.0) fL MCH (25.0-35.0) pg MCHC (31.0-37.0) g/dL RDW (11.5-15.5) % Plt Count (150-450) k/uL Sodium (137-145) mmol/L BUN (7-17) mg/dL Glucose (74-99) mg/dL POC Glucose (mg/dL) 231 H 320 H 188 H (70-110) mg/dL Lipase (23-300) U/L 02/04/22 02/05/22 02/05/22 Range/Units 20:49 06:04 07:30 MCV (80.0-100.0) fL MCH (25.0-35.0) pg MCHC (31.0-37.0) g/dL RDW (11.5-15.5) % Plt Count (150-450) k/uL Sodium 135 L (137-145) mmol/L BUN 20 H (7-17) mg/dL Glucose 249 H (74-99) mg/dL POC Glucose (mg/dL) 244 H 245 H (70-110) mg/dL Lipase 2170 H (23-300) U/L 02/05/22 Range/Units 07:30 MCV 78.0 L (80.0-100.0) fL MCH 23.4 L (25.0-35.0) pg MCHC 30.0 L (31.0-37.0) g/dL RDW 18.9 H (11.5-15.5) % Plt Count 506 H (150-450) k/uL Sodium (137-145) mmol/L BUN (7-17) mg/dL Glucose (74-99) mg/dL POC Glucose (mg/dL) (70-110) mg/dL Lipase (23-300) U/L Assessment and Plan Assessment: 1. Acute diabetic ketoacidosis; resolved. 2. Acute pancreatitis; patient continues to report severe abdominal pain; Last blood work completed on 01/31/2022 reveals lipase level of 6840; we will repeat lipase level tomorrow morning 3. Persistent hyperglycemia/uncontrolled diabetes; continue adjustment and monitoring. We will increase her NovoLog to 25 units 3 times a day before meals, Y Chantel her Levemir 100 units down to 91 daily. Increase metformin 500 mg twice a day 4. Hypertriglyceridemia: Start Lipitor, dietary consult Labs and medication were reviewed.. Continue same treatment. Continue with symptomatic treatment. Resume home medication. Monitor lytes and vitals. DVT and GI prophylaxis. Further recommendations as per clinical course of the patient GI Prophylaxis: Ppi PT/OT: Pending Prognosis is guarded
--- NOTE | 2022-02-05 14:11 | P.CONS ---
History of Present Illness - Reason for Consult Consult date: 02/05/22 Pancreatitis Requesting physician: Nico Law - Chief Complaint Abdominal pain - History of Present Illness There is a 51-year-old female who had presented to the emergency department on 01/30/2022 with complaints of abdominal pain associated with nausea and vomiting. She has a past medical history including diabetes with uncontrolled sugars, pancreatitis, hyperlipidemia, hypertension, and chronic low back pain. On admission she had elevated lipase as high as 6840 with normal LFTs. She had a CT of the abdomen and pelvis with findings consistent with pancreatitis. Gastroenterology was consulted for pancreatitis. Patient was also noted to have elevated triglycerides on admission at 824. Patient states she has 1 prior episode of pancreatitis also related to elevated triglycerides. She states she has been taking her medication including her insulin, Lipitor and fenofibrate. She denies any previous history of alcohol use or current alcohol abuse. No f amily history of pancreatitis. 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 She denies any new medications. Denies any problems with her gallbladder. States her abdominal pain has significantly improved since being admitted, she denies any nausea or vomiting. Lipase has been trending down, repeat lipase today 2170 Review of Systems REVIEW OF SYSTEMS: CARDIOPULMONARY: No chest pain or shortness of breath. Gastrointestinal: Severe epigastric/right upper quadrant pain, now resolved. Nausea and vomiting now resolved. No hematemesis, coffee-ground emesis. No rectal bleeding, or melena. GENITOURINARY: No dysuria or hematuria. MUSCULOSKELETAL: Reports normal range of motion., Joint pain. SKIN: No rashes. No jaundice. ENDOCRINE: No chills, fevers. No excessive weight gain or loss. No polydipsia or polyuria. PSYCHIATRIC: Unremarkable. NEUROLOGY: No change in mental status. Denies dizziness, headache. ENT: Vision unremarkable. CONSTITUTIONAL: No recent weight loss. No fever, chills, night sweats. Past Medical History Past Medical History: Diabetes Mellitus, GERD/Reflux, Hyperlipidemia, Hypertension, Syncope Additional Past Medical History / Comment(s): Pt recently admitted to [facility] [place] on 07/21/21 with uncontrolled IDDM and hyperkalemia. Other hx: Recurrent pancreatitis, hypertriglyceridemia, elevated lipase, IDDM type II, UTI, chronic low back pain, bulging discs, dental abscesses in past. History of Any Multi-Drug Resistant Organisms: None Reported Past Surgical History: Tubal Ligation Additional Past Surgical History / Comment(s): Age 7 had VSD repair Past Anesthesia/Blood Transfusion Reactions: No Reported Reaction Past Psychological History: No Psychological Hx Reported Smoking Status: Former smoker Past Alcohol Use History: None Reported Past Drug Use History: None Reported - Past Family History Mother Family Medical History: No Reported History Additional Family Medical History / Comment(s): Mother was healthy. She is , pt cannot recall cause of . Father Family Medical History: Pneumonia Additional Family Medical History / Comment(s): Father at the age of 67yrs from pneumonia Medications and Allergies Home Medications Medication Instructions Recorded Confirmed Type Fenofibrate [Lofibra] 160 mg PO DAILY #30 tab 03/23/19 01/30/22 Rx Atorvastatin [Lipitor] 80 mg PO HS 06/25/19 01/30/22 History lisinopriL 40 mg PO DAILY 09/24/20 01/30/22 History metFORMIN HCL [Glucophage] 500 mg PO DAILY 09/24/20 01/30/22 History traZODone HCL 50 - 100 mg PO HS PRN 01/11/21 01/30/22 History Ergocalciferol (Vitamin D2) 1,250 mcg PO TU 03/03/21 01/30/22 History [Drisdol (50,000 Iu)] Albuterol Inhaler [Ventolin Hfa 2 puff INHALATION RT-QID PRN 07/28/21 01/30/22 History Inhaler] INSULIN ASPART (NovoLOG) [NovoLOG 18 unit SQ AC-TID 09/24/21 01/30/22 History (formulary)] Insulin Detemir (Levemir) [Levemir] 100 unit SQ DAILY@0700 30 Days #1 12/11/21 01/30/22 Rx pen Esomeprazole Magnesium [NexIUM] 20 mg PO DAILY 01/30/22 01/30/22 History Allergies Allergy/AdvReac Type Severity Reaction Status Date / Time levofloxacin [From Levaquin] Allergy Rash/Hives Verified 01/30/22 07:47 Physical Exam Vitals: Vital Signs Temp Pulse Resp BP Pulse Ox 02/05/22 07:55 97.3 F L 72 18 143/67 98 02/05/22 04:00 70 18 130/69 94 L 02/05/22 02:00 68 18 02/05/22 00:00 98.3 F 71 18 127/60 93 L 02/04/22 20:00 98.0 F 84 20 134/86 96 02/04/22 16:00 98.2 F 68 18 159/70 97 02/04/22 14:00 68 18 Intake and Output 02/04/22 02/05/22 02/05/22 22:59 06:59 14:59 Intake Total 605 240 118 Balance 605 240 118 Intake: Oral 605 240 118 Other: Voiding Method Toilet Toilet # Voids 2 2 General appearance: The patient is alert, oriented, appears in no acute distress. Obese. HET: Head is normocephalic and atraumatic. Conjunctiva pink. Sclera anicteric. Neck: Supple without lymphadenopathy. Trachea midline. Heart: S1 S2. Regular rate and rhythm. Lungs: Clear to auscultation. Abdomen: Soft, obese, nontender, nondistended with bowel sounds. No guarding or rigidity. Skin: No rashes. No jaundice. Extremities: Normal skin color and turgor. No pedal edema. Neurological: No focal deficits. Alert and oriented x3. Results CBC & Chem 7: 02/05/22 07:30 02/05/22 07:30 Labs: Abnormal Lab Results - Last 24 Hours (Table) 02/03/22 02/04/22 02/04/22 Range/Units 11:51 16:48 20:49 MCV (80.0-100.0) fL MCH (25.0-35.0) pg MCHC (31.0-37.0) g/dL RDW (11.5-15.5) % Plt Count (150-450) k/uL Sodium (137-145) mmol/L BUN (7-17) mg/dL Glucose (74-99) mg/dL POC Glucose (mg/dL) 231 H 188 H 244 H (70-110) mg/dL Lipase (23-300) U/L 02/05/22 02/05/22 02/05/22 Range/Units 06:04 07:30 07:30 MCV 78.0 L (80.0-100.0) fL MCH 23.4 L (25.0-35.0) pg MCHC 30.0 L (31.0-37.0) g/dL RDW 18.9 H (11.5-15.5) % Plt Count 506 H (150-450) k/uL Sodium 135 L (137-145) mmol/L BUN 20 H (7-17) mg/dL Glucose 249 H (74-99) mg/dL POC Glucose (mg/dL) 245 H (70-110) mg/dL Lipase 2170 H (23-300) U/L 02/05/22 Range/Units 11:44 MCV (80.0-100.0) fL MCH (25.0-35.0) pg MCHC (31.0-37.0) g/dL RDW (11.5-15.5) % Plt Count (150-450) k/uL Sodium (137-145) mmol/L BUN (7-17) mg/dL Glucose (74-99) mg/dL POC Glucose (mg/dL) 295 H (70-110) mg/dL Lipase (23-300) U/L Comments: 02/04/2022 CT abdomen and pelvis without contrast reported resolution of previous radiographic findings of acute pancreatitis. Mild fatty infiltration of the liver. 01/30/2022 CT abdomen pelvis without contrast with findings consistent with pancreatitis Assessment and Plan (1) Acute pancreatitis Narrative/Plan: 51-year-old female with prior history of pancreatitis related to hypertriglyceridemia presented to the emergency department last week with complaints of abdominal pain associated with nausea and vomiting. She was noted to have significant elevated lipase in the 6000 as well as elevated triglycerides 824. Patient is diabetic and has also had uncontrolled sugars despite reporting that she is taking all of her medications. Patient's symptoms have resolved and pain has significantly improved. Triglycerides have trended down to 584. Lipase continues to trend down with today at 2170. Pancreatitis likely related to hypertriglyceridemia. Goal is to manage triglycerides with outpatient levels below 300. Current Visit: No Status: Acute Code(s): K85.90 - ACUTE PANCREATITIS WITHOUT NECROSIS OR INFECTION, UNSP SNOMED Code(s): 557529589 Plan: 1. Continue symptomatic and supportive care 2. Full liquid diet advance as tolerated 3. Strict glycemic control 4. Strict control of triglycerides, goal less than 300 5. No Further Workup Indicated 6. Repeat lipase Thank you for this consultation, we will continue to follow. Dr. Allyssa Patino I agree with the dictator's note, documented as a scribe by Marisol Galindo.
[2022-02-05 16:36] LABS: Glucose,Whole Blood 243 mg/dL (70-110)
[2022-02-05] MEDS ORDERED: ATORVASTATIN 20 MG TAB PO SCH (21:00)
[2022-02-05 21:08] LABS: Glucose,Whole Blood 218 mg/dL (70-110)
[2022-02-05] MEDS: traZODone HCL 50 MG TAB PO SCH (21:27)
[2022-02-06 06:30] LABS: Glucose,Whole Blood 198 mg/dL (70-110)
[2022-02-06] MEDS: SODIUM CHLORIDE 0.9% 1,000 ML IV SCH ×2 (06:40→11:56)
[2022-02-06] MEDS ORDERED: INSULIN DETEMIR (LEVEMIR) 100 UNIT/ML SYR SQ SCH (07:00)
[2022-02-06] MEDS: INSULIN ASPART (NovoLOG) 100 UNIT/ML VIAL SQ SCH ×4 (07:03→11:55)
[2022-02-06] MEDS: PANTOPRAZOLE 40 MG TABLET PO SCH (07:03)
[2022-02-06] MEDS: ACETAMINOPHEN TAB 325 MG TAB PO PRN (08:42)
[2022-02-06] MEDS: lisinopriL 20 MG TAB PO SCH (08:43)
[2022-02-06] MEDS: metFORMIN 500 MG TAB PO SCH (08:43)
[2022-02-06 11:35] LABS: Glucose,Whole Blood 257 mg/dL (70-110)
--- NOTE | 2022-02-06 11:36 | P.PN ---
Subjective Progress Note Date: 02/06/22 Principal diagnosis: Pancreatitis This is a 51-year-old female who had presented to the emergency department on 01/30/2022 with complaints of abdominal pain associated with nausea and vomiting. She has a past medical history including diabetes with uncontrolled sugars, pancreatitis, hyperlipidemia, hypertension, and chronic low back pain. On admission she had elevated lipase as high as 6840 with normal LFTs. She had a CT of the abdomen and pelvis with findings consistent with pancreatitis. Gastroenterology was consulted for pancreatitis. Patient was also noted to have elevated triglycerides on admission at 824. Patient states she has 1 prior episode of pancreatitis also related to elevated triglycerides. She states she has been taking her medication including her insulin, Lipitor and fenofibrate. She denies any previous history of alcohol use or current alcohol abuse. No family history of pancreatitis. 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 She denies any new medications. Denies any problems with her gallbladder. States her abdominal pain has significantly improved since being admitted, she denies any nausea or vomiting. Lipase has been trending down, repeat lipase today 2170 02/06/2022: Patient seen and examined this a follow-up. Abdominal pain is still improved. Plan is for discharge home today. No nausea or vomiting. Today's lipase is currently pending. Objective - Vital Signs Vital signs: Vital Signs Temp 98.4 F 02/06/22 04:45 Pulse 66 02/06/22 04:45 Resp 16 02/06/22 04:45 BP 121/63 02/06/22 04:45 Pulse Ox 96 02/06/22 04:45 FiO2 Intake & Output 02/05/22 02/06/22 02/06/22 18:59 06:59 18:59 Intake Total 358 1000 240 Balance 358 1000 240 Intake: Intake, IV Titration 1000 Amount Sodium Chloride 0.9% 1, 1000 000 ml @ 130 mls/hr IV . Q7H42M [facility] Rx#:[id number] Oral 358 240 Other: Voiding Method Toilet Toilet # Voids 2 2 - Exam General appearance: The patient is alert, oriented, appears in no acute distress. HET: Head is normocephalic and atraumatic. Conjunctiva pink. Sclera anicteric. Neck: Supple without lymphadenopathy. Abdomen: Soft, obese, nontender, nondistended with bowel sounds. No guarding or rigidity. Extremities: Normal skin color and turgor. No pedal edema Skin: No rashes, no jaundice Neurological: No focal deficits. Alert and oriented. - Labs CBC & Chem 7: 02/05/22 07:30 02/05/22 07:30 Labs: Abnormal Lab Results - Last 24 Hours (Table) 02/05/22 02/05/22 02/05/22 Range/Units 11:44 16:34 21:06 POC Glucose (mg/dL) 295 H 243 H 218 H (70-110) mg/dL 02/06/22 Range/Units 06:28 POC Glucose (mg/dL) 198 H (70-110) mg/dL Assessment and Plan (1) Acute pancreatitis Narrative/Plan: 51-year-old female with prior history of pancreatitis related to hypertriglyceridemia presented to the emergency department last week with complaints of abdominal pain associated with nausea and vomiting. She was noted to have significant elevated lipase in the 6000 as well as elevated triglycerides 824. Patient is diabetic and has also had uncontrolled sugars despite reporting that she is taking all of her medications. Patient's symptoms have resolved and pain has significantly improved. Triglycerides have trended down to 584. Lipase continues to trend down with today at 2170. Pancreatitis likely related to hypertriglyceridemia. Goal is to manage triglycerides with outpatient levels below 300. Current Visit: No Status: Acute Code(s): K85.90 - ACUTE PANCREATITIS WITHOUT NECROSIS OR INFECTION, UNSP SNOMED Code(s): 259436684 Plan: 1. Continue symptomatic and supportive care 2. Advance diet 3. Strict glycemic control 4. Strict control of triglycerides, goal less than 300 5. No Further Workup Indicated Thank you for this consultation, patient is cleared for discharge from gastroenterology Dr. Allyssa Patino I agree with the dictator's note, documented as a scribe by Marisol Galindo.
[2022-02-06 13:56] VITALS: TEMP 98
[2022-02-06 14:48] VITALS: BP 137/77; PULSE 74; RESP 14
[2022-02-06] MEDS ORDERED: INSULIN ASPART (NovoLOG) 100 UNIT/ML VIAL SQ SCH (17:30)
== END 2022-02-06 15:35 | disposition home or self-care (01) | DRG 637 ==
LOC: EC 22:35 → 3SCARD 01-30 04:04
PROVIDERS: ADMIT Family Medicine; ATTEND Family Medicine
DX: E11.10 Type 2 diabetes mellitus with ketoacidosis without coma (principal); K85.90 Acute pancreatitis without necrosis or infection, unspecified; K86.1 Other chronic pancreatitis; Z68.41 Body mass index [BMI] 40.0-44.9, adult; E87.1 Hypo-osmolality and hyponatremia; Z79.4 Long term (current) use of insulin; D72.829 Elevated white blood cell count, unspecified; E87.5 Hyperkalemia; I10 Essential (primary) hypertension; E78.5 Hyperlipidemia, unspecified; K21.9 Gastro-esophageal reflux disease without esophagitis; E78.1 Pure hyperglyceridemia; K76.0 Fatty (change of) liver, not elsewhere classified; G89.29 Other chronic pain; M54.50 Low back pain, unspecified; E66.9 Obesity, unspecified; F32.A Depression, unspecified; Z91.199 Patient's noncompliance with other medical treatment and regimen due to unspecified reason; Z88.1 Allergy status to other antibiotic agents; Z79.899 Other long term (current) drug therapy; Z79.84 Long term (current) use of oral hypoglycemic drugs; Z87.440 Personal history of urinary (tract) infections; Z87.891 Personal history of nicotine dependence; Z87.74 Personal history of (corrected) congenital malformations of heart and circulatory system; Z98.51 Tubal ligation status
CPT/HCPCS: 36415; 74150; 80048; 80053; 81001; 82803; 83036; 83690; 84478; 84703; 85025; 96361; 96374; 96375; 96376; 99284

== ENCOUNTER 2022-03-03 12:26 | Inpatient (IN) | payer MEDICARE ==
[2022-03-03] MEDS ORDERED: SODIUM CHLORIDE 0.9% 1,000 ML IV STA (14:03)
[2022-03-03] MEDS ORDERED: CLINDAMYCIN 600 MG in DEXTROSE 5% IN WATER 50 ML IVPB STA ×2 (14:03)
[2022-03-03] MEDS ORDERED: MORPHINE SULFATE 4 MG/ML SYRINGE IV STA ×2 (14:05→18:18)
--- NOTE | 2022-03-03 14:10 | ED ---
Skin/Abscess/FB HPI - General Chief complaint: Skin/Abscess/Foreign Body Stated complaint: cellulitis Time Seen by Provider: 03/03/22 13:58 Source: patient, RN notes reviewed Mode of arrival: wheelchair Limitations: no limitations - History of Present Illness Initial comments: This is a pleasant 51-year-old diabetic female presents to emergency with a p ainful, draining, abscess on her right buttock. Patient states that been present for about 2 days. It is now draining purulent fluid. Patient states she has had a fever at home. No headache, SUBJECTIVE fever and chills, no changes in vision or hearing, no sore throat or difficulty with speech, no neck pain, no chest pain or shortness of breath, no abdominal pain, no nausea or vomiting, no changes in urination or bowel movements, no numbness or tingling, no extremity pain, Past medical, surgical, social, and family history reviewed. - Related Data Home Medications Medication Instructions Recorded Confirmed Atorvastatin [Lipitor] 80 mg PO HS 06/25/19 03/03/22 lisinopriL 40 mg PO DAILY 09/24/20 03/03/22 metFORMIN HCL [Glucophage] 500 mg PO DAILY 09/24/20 03/03/22 traZODone HCL 50 - 100 mg PO HS PRN 01/11/21 03/03/22 Ergocalciferol (Vitamin D2) 1,250 mcg PO TU 03/03/21 03/03/22 [Drisdol (50,000 Iu)] Albuterol Inhaler [Ventolin Hfa 2 puff INHALATION RT-QID PRN 07/28/21 03/03/22 Inhaler] Esomeprazole Magnesium [NexIUM] 20 mg PO DAILY 01/30/22 03/03/22 Previous Rx's Medication Instructions Recorded INSULIN ASPART (NovoLOG) [NovoLOG 30 unit SQ AC-TID #10 ml 02/06/22 (formulary)] Insulin Detemir (Levemir) [Levemir] 90 unit SQ DAILY@0700 30 Days #1 02/06/22 pen Allergies Allergy/AdvReac Type Severity Reaction Status Date / Time levofloxacin [From Levaquin] Allergy Rash/Hives Verified 03/03/22 13:07 Review of Systems ROS Statement: Those systems with pertinent positive or pertinent negative responses have been documented in the HPI. ROS Other: All systems not noted in ROS Statement are negative. Past Medical History Past Medical History: Diabetes Mellitus, GERD/Reflux, Hyperlipidemia, Hypertension, Syncope Additional Past Medical History / Comment(s): Pt recently admitted to [facility] on 07/21/21 with uncontrolled IDDM and hyperkalemia. Other hx: Recurrent pancreatitis, hypertriglyceridemia, elevated lipase, IDDM type II, UTI, chronic low back pain, bulging discs, dental abscesses in past. History of Any Multi-Drug Resistant Organisms: None Reported Past Surgical History: Tubal Ligation Additional Past Surgical History / Comment(s): Age 7 had VSD repair Past Anesthesia/Blood Transfusion Reactions: No Reported Reaction Past Psychological History: No Psychological Hx Reported Smoking Status: Former smoker Past Alcohol Use History: None Reported Past Drug Use History: None Reported - Past Family History Mother Family Medical History: No Reported History Additional Family Medical History / Comment(s): Mother was healthy. She is , pt cannot recall cause of . Father Family Medical History: Pneumonia Additional Family Medical History / Comment(s): Father at the age of 67yrs from pneumonia General Exam - General Exam Comments Initial Comments: Vital signs stable, patient afebrile here. Patient has a significant no abscess to the right buttock area Limitations: no limitations General appearance: alert, in no apparent distress, in distress (Secondary to pain in the right buttock) Head exam: Present: atraumatic, normocephalic, normal inspection Eye exam: Present: normal appearance, PERRL, EOMI. Absent: scleral icterus, conjunctival injection, periorbital swelling ENT exam: Present: normal exam, mucous membranes moist Neck exam: Present: normal inspection, full ROM. Absent: tenderness, meningismus, lymphadenopathy Respiratory exam: Present: normal lung sounds bilaterally. Absent: respiratory distress, wheezes, rales, rhonchi, stridor Cardiovascular Exam: Present: regular rate, normal rhythm, normal heart sounds. Absent: systolic murmur, diastolic murmur, rubs, gallop, clicks GI/Abdominal exam: Present: soft, normal bowel sounds. Absent: distended, tenderness, guarding, rebound, rigid Extremities exam: Present: full ROM, normal capillary refill. Absent: normal inspection (Large draining abscess to the right buttock area. Approximately 12 cm in diameter.), tenderness, pedal edema, joint swelling, calf tenderness Back exam: Present: normal inspection Neurological exam: Present: alert, oriented X3, CN II-XII intact Psychiatric exam: Present: normal affect, normal mood Skin exam: Present: warm, dry, normal color, erythema (Large, draining erythematous abscess to right buttock, approximately 10-12 semis in diameter.). Absent: rash Course Vital Signs 03/03/22 03/03/22 13:05 16:06 Temperature 98.5 F Pulse Rate 81 80 Respiratory 16 15 Rate Blood Pressure 122/68 120/76 O2 Sat by Pulse 97 98 Oximetry - Reevaluation(s) Reevaluation #1: 03/03/22 16:25 Patient's lactic acid in excess of 3. White blood cell count of 17,000 patient hemodynamically stable. Does not meet sepsis criteria due to lack of Sirs criteria. However the patient be admitted for right buttock cellulitis with a bscess. Abscess currently draining. We will consult surgery. - Consultations Consultation #1: Case discussed with Shalini Herrmann from [facility] hospitalist group. Patient will be admitted to that group for further treatment, surgical and infectious disease consultation. Medical Decision Making - Medical Decision Making Order a dose of clindamycin 600 mg IV piggyback. General laboratory workup, wound cultures, blood cultures, lactic acid, plan for reassessment Admitted for IV antibiotics, surgical and infectious disease consultation. Discussed with [facility]. Treatment plan discussed in detail with the patient. The case was discussed in detail with ED attending physician. Presentation, findings, treatment plan discussed in detail. Supervising physician Dr. Ratliff - Lab Data Result diagrams: 03/03/22 14:43 03/03/22 14:43 Lab Results 03/03/22 03/03/22 03/03/22 Range/Units 14:43 14:43 15:50 WBC 17.0 H (3.8-10.6) k/uL RBC 4.52 (3.80-5.40) m/uL Hgb 10.6 L (11.4-16.0) gm/dL Hct 35.3 (34.0-46.0) % MCV 78.1 L (80.0-100.0) fL MCH 23.4 L (25.0-35.0) pg MCHC 30.0 L (31.0-37.0) g/dL RDW 18.6 H (11.5-15.5) % Plt Count 554 H (150-450) k/uL MPV 7.9 Neutrophils % 79 % Lymphocytes % 14 % Monocytes % 5 % Eosinophils % 1 % Basophils % 1 % Neutrophils # 13.4 H (1.3-7.7) k/uL Lymphocytes # 2.4 (1.0-4.8) k/uL Monocytes # 0.8 (0-1.0) k/uL Eosinophils # 0.2 (0-0.7) k/uL Basophils # 0.1 (0-0.2) k/uL Hypochromasia Marked Anisocytosis Slight Microcytosis Slight Sodium 132 L (137-145) mmol/L Potassium 4.8 (3.5-5.1) mmol/L Chloride 96 L (98-107) mmol/L Carbon Dioxide 25 (22-30) mmol/L Anion Gap 11 mmol/L BUN 13 (7-17) mg/dL Creatinine 0.72 (0.52-1.04) mg/dL Est GFR (CKD-EPI)AfAm >90 (>60 ml/min/1.73 sqM) Est GFR (CKD-EPI)NonAf >90 (>60 ml/min/1.73 sqM) Glucose 482 H (74-99) mg/dL Plasma Lactic Acid Travon 3.0 H* (0.7-2.0) mmol/L Calcium 8.6 (8.4-10.2) mg/dL Total Bilirubin 0.6 (0.2-1.3) mg/dL AST 34 (14-36) U/L ALT 30 (4-34) U/L Alkaline Phosphatase 190 H (38-126) U/L Total Protein 6.3 (6.3-8.2) g/dL Albumin 3.5 (3.5-5.0) g/dL Urine Color Urine Appearance (Clear) Urine pH (5.0-8.0) Ur Specific [place] (1.001-1.035) Urine Protein (Negative) Urine Glucose (UA) (Negative) Urine Ketones (Negative) Urine Blood (Negative) Urine Nitrite (Negative) Urine Bilirubin (Negative) Urine Urobilinogen (<2.0) mg/dL Ur Leukocyte Esterase (Negative) Urine RBC (0-5) /hpf Urine WBC (0-5) /hpf Ur Squamous Epith Cells (0-4) /hpf Urine Bacteria (None) /hpf Hyaline Casts (0-2) /lpf Urine Mucus (None) /hpf 03/03/22 Range/Units 15:53 WBC (3.8-10.6) k/uL RBC (3.80-5.40) m/uL Hgb (11.4-16.0) gm/dL Hct (34.0-46.0) % MCV (80.0-100.0) fL MCH (25.0-35.0) pg MCHC (31.0-37.0) g/dL RDW (11.5-15.5) % Plt Count (150-450) k/uL MPV Neutrophils % % Lymphocytes % % Monocytes % % Eosinophils % % Basophils % % Neutrophils # (1.3-7.7) k/uL Lymphocytes # (1.0-4.8) k/uL Monocytes # (0-1.0) k/uL Eosinophils # (0-0.7) k/uL Basophils # (0-0.2) k/uL Hypochromasia Anisocytosis Microcytosis Sodium (137-145) mmol/L Potassium (3.5-5.1) mmol/L Chloride (98-107) mmol/L Carbon Dioxide (22-30) mmol/L Anion Gap mmol/L BUN (7-17) mg/dL Creatinine (0.52-1.04) mg/dL Est GFR (CKD-EPI)AfAm (>60 ml/min/1.73 sqM) Est GFR (CKD-EPI)NonAf (>60 ml/min/1.73 sqM) Glucose (74-99) mg/dL Plasma Lactic Acid Travon (0.7-2.0) mmol/L Calcium (8.4-10.2) mg/dL Total Bilirubin (0.2-1.3) mg/dL AST (14-36) U/L ALT (4-34) U/L Alkaline Phosphatase (38-126) U/L Total Protein (6.3-8.2) g/dL Albumin (3.5-5.0) g/dL Urine Color Yellow Urine Appearance Cloudy H (Clear) Urine pH 6.0 (5.0-8.0) Ur Specific [place] 1.028 (1.001-1.035) Urine Protein 2+ H (Negative) Urine Glucose (UA) 4+ H (Negative) Urine Ketones Negative (Negative) Urine Blood Negative (Negative) Urine Nitrite Negative (Negative) Urine Bilirubin Negative (Negative) Urine Urobilinogen <2.0 (<2.0) mg/dL Ur Leukocyte Esterase Large H (Negative) Urine RBC 4 (0-5) /hpf Urine WBC 7 H (0-5) /hpf Ur Squamous Epith Cells 15 H (0-4) /hpf Urine Bacteria Few H (None) /hpf Hyaline Casts 5 H (0-2) /lpf Urine Mucus Rare H (None) /hpf Disposition Clinical Impression: Abscess and cellulitis of gluteal region, Lactic acidosis, Uncontrolled type 2 diabetes mellitus Disposition: ADMITTED IP TO THIS HOSP Condition: Fair Is patient prescribed a controlled substance at d/c from ED?: No Referrals: Guillermo Cerda MD [Primary Care Provider] - 1-2 days Time of Disposition: 16:26 Decision to Admit Reason: Admit from EC Decision Time: 16:26
[2022-03-03 15:17] LABS: Anisocytosis Slight; Basophils # (A) 0.1 k/uL (0-0.2); Basophils % (A) 1 %; Eosinophils # (A) 0.2 k/uL (0-0.7); Eosinophils % (A) 1 %; HCT 35.3 % (34.0-46.0); HGB 10.6 gm/dL (11.4-16.0); Hypochromasia Marked; Lymphocytes # (A) 2.4 k/uL (1.0-4.8); Lymphocytes % (A) 14 %; MCH 23.4 pg (25.0-35.0); MCV 78.1 fL (80.0-100.0); Mean Platelet Volume 7.9; Microcytosis Slight; Monocytes # (A) 0.8 k/uL (0-1.0); Monocytes % (A) 5 %; Neutrophils # (A) 13.4 k/uL (1.3-7.7); Neutrophils % (A) 79 %; Platelet Count 554 k/uL (150-450); RBC 4.52 m/uL (3.80-5.40); RDW 18.6 % (11.5-15.5)
[2022-03-03 16:05] LABS: Appearance,Urine Cloudy (Clear); Bacteria,Urine Few /hpf; Bilirubin,Urine Negative (Negative); Blood,Urine Negative (Negative); Color,Urine Yellow; Glucose,Urine (UA) 4+ (Negative); Hyaline Casts,Urine 5 /lpf (0-2); Ketones,Urine Negative (Negative); Leukocyte Esterase,Urine Large (Negative); Mucus,Urine Rare /hpf; Nitrite,Urine Negative (Negative); Protein,Urine 2+ (Negative); RBC,Urine 4 /hpf (0-5); Specific Gravity,Urine 1.028 (1.001-1.035); Squamous Epithelial Cell,Urine 15 /hpf (0-4); Urobilinogen,Urine <2.0 mg/dL (<2.0); WBC,Urine 7 /hpf (0-5)
[2022-03-03 16:09] LABS: ALT 30 U/L (4-34); AST 34 U/L (14-36); African American GFR (CKD) >90 (>60 ml/min/1.73 sqM); Albumin 3.5 g/dL (3.5-5.0); Alkaline Phosphatase 190 U/L (38-126); Anion Gap 11 mmol/L; Blood Urea Nitrogen 13 mg/dL (7-17); Calcium 8.6 mg/dL (8.4-10.2); Carbon Dioxide 25 mmol/L (22-30); Chloride 96 mmol/L (98-107); Glucose 482 mg/dL (74-99); Non-African American GFR(CKD) >90 (>60 ml/min/1.73 sqM); Potassium 4.8 mmol/L (3.5-5.1); Sodium 132 mmol/L (137-145); Total Bilirubin 0.6 mg/dL (0.2-1.3); Total Protein 6.3 g/dL (6.3-8.2)
[2022-03-03] MEDS ORDERED: ONDANSETRON 4 MG/2 ML VIAL IVP PRN (17:04)
[2022-03-03] MEDS ORDERED: NALOXONE 0.4 MG/ML 1 ML VIAL IV PRN (17:04)
[2022-03-03] MEDS ORDERED: ALBUTEROL HFA INHALER INHALATION PRN (17:07)
[2022-03-03] MEDS ORDERED: DEXTROSE 50% SYRINGE 50 ML IVP PRN ×2 (17:09)
[2022-03-03] MEDS: MORPHINE SULFATE 4 MG/ML SYRINGE IV PRN ×2 (18:41→23:41)
[2022-03-03 22:55] LABS: Glucose,Whole Blood 356 mg/dL (70-110)
[2022-03-03] MEDS: CLINDAMYCIN 600 MG in DEXTROSE 5% IN WATER 50 ML IVPB SCH ×2 (23:18)
[2022-03-03] MEDS: ATORVASTATIN 80 MG TAB PO SCH (23:19)
[2022-03-03] MEDS: INSULIN ASPART (NovoLOG) 100 UNIT/ML VIAL SQ SCH (23:19)
[2022-03-04] MEDS: SODIUM CHLORIDE 0.9% 1,000 ML IV SCH ×4 (03:18→10:28)
[2022-03-04] MEDS: CLINDAMYCIN 600 MG in DEXTROSE 5% IN WATER 50 ML IVPB SCH ×6 (03:41→14:08)
[2022-03-04] MEDS: HEPARIN SODIUM,PORCINE/PF 5,000 UNIT/0.5 ML SYRINGE SQ SCH ×3 (03:41→15:06)
[2022-03-04] MEDS: ACETAMINOPHEN TAB 325 MG TAB PO PRN (03:45)
[2022-03-04] MEDS: INSULIN ASPART (NovoLOG) 100 UNIT/ML VIAL SQ SCH ×5 (03:56→20:28)
[2022-03-04] MEDS: MORPHINE SULFATE 4 MG/ML SYRINGE IV PRN ×4 (05:35→20:28)
[2022-03-04 06:48] LABS: Glucose,Whole Blood 357 mg/dL (70-110)
[2022-03-04 07:48] LABS: Glucose,Whole Blood 347 mg/dL (70-110)
[2022-03-04] MEDS: INSULIN DETEMIR (LEVEMIR) 100 UNIT/ML SYR SQ SCH (08:18)
[2022-03-04] MEDS: PANTOPRAZOLE 40 MG TABLET PO SCH (08:19)
[2022-03-04] MEDS: lisinopriL 20 MG TAB PO SCH (08:19)
[2022-03-04 09:24] LABS: Basophils # (A) 0.07 X 10*3/uL (0.00-0.10); Basophils % (A) 0.5 %; Eosinophils # (A) 0.22 X 10*3/uL (0.04-0.35); Eosinophils % (A) 1.5 %; Immature Grans, Automated 0.5 %; Lymphocytes # (A) 2.73 X 10*3/uL (0.90-5.00); Lymphocytes % (A) 18.5 %; MCH 22.4 pg (27.0-32.0); MCHC 28.1 g/dL (32.0-37.0); MCV 79.8 fL (80.0-97.0); Mean Platelet Volume 9.7 fL (9.5-12.2); Monocytes # (A) 0.83 X 10*3/uL (0.20-1.00); Monocytes % (A) 5.6 %; NRBC Per 100 WBC 0 /100 WBCS (0.0-0.0); Neutrophils # (A) 10.84 X 10*3/uL (1.80-7.70); Neutrophils % (A) 73.4 %; Platelet Count 471 X 10*3/uL (140-440); RBC 4.01 X 10*6/uL (4.10-5.20); RDW 20.2 % (11.5-14.5); WBC 14.76 X 10*3/uL (4.50-10.00)
[2022-03-04 09:41] LABS: ALT 26 U/L (8-44); AST 28 U/L (13-35); African American GFR (CKD) 117.9 (60.0-200.0); Albumin 2.8 g/dL (3.8-4.9); Albumin/Globulin Ratio 1.12 (1.60-3.17); Alkaline Phosphatase 166 U/L (41-126); Calcium 8.4 mg/dL (8.7-10.3); Carbon Dioxide 22.5 mmol/L (20.0-27.5); Chloride 99 mmol/L (96-109); Globulin 2.5 g/dL (1.6-3.3); Glucose 361 mg/dL (70-110); Non-African American GFR(CKD) 101.7 (60.0-200.0); Potassium 4.5 mmol/L (3.5-5.5); Sodium 135 mmol/L (135-145); Total Bilirubin <0.15 mg/dL (0.30-1.20); Total Protein 5.3 g/dL (6.2-8.2)
--- NOTE | 2022-03-04 11:16 | P.HPIM ---
History of Present Illness H&P Date: 03/04/22 History of present illness; patient is a 51-year-old lady with past medical history significant for hyperlipidemia, insulin-dependent diabetes mellitus, obesity who presented to the ER because of right buttock infection. Patient was all right yesterday morning when she noticed drainage of purulent fluid from her right buttock. Patient was complaining of fevers at home. Patient stated that she never had similar complaints before. Patient denies any nausea, vomiting or abdominal pain. Patient denies any lightheadedness or dizziness. Initial workup in the ER showed patient to a white count of 14.7, hemoglobin of 9, sodium 135, potassium 4.5, initial lactate was 3, repeat was 2.4. Patient was started on IV antibiotics and admitted to hospitalist service REVIEW OF SYSTEMS: CONSTITUTIONAL: No fever, no malaise, no fatigue. HEENT: No recent visual problems or hearing problems. Denied any sore throat. CARDIOVASCULAR: No chest pain, orthopnea, PND, no palpitations, no syncope. PULMONARY: No shortness of breath, no cough, no hemoptysis. GASTROINTESTINAL: No diarrhea, no nausea, no vomiting, no abdominal pain. NEUROLOGICAL: No headaches, no weakness, no numbness. HEMATOLOGICAL: Denies any bleeding or petechiae. GENITOURINARY: Denies any burning micturition, frequency, or urgency. MUSCULOSKELETAL/RHEUMATOLOGICAL: Pain in right buttock ENDOCRINE: Denies any polyuria or polydipsia. The rest of the 14-point review of systems is negative. PHYSICAL EXAMINATION: GENERAL: The patient is alert and oriented x3, not in any acute distress. Well developed, well nourished. HEENT: Pupils are round and equally reacting to light. EOMI. No scleral icterus. No conjunctival pallor. Normocephalic, atraumatic. No pharyngeal erythema. No thyromegaly. CARDIOVASCULAR: S1 and S2 present. No murmurs, rubs, or gallops. PULMONARY: Chest is clear to auscultation, no wheezing or crackles. ABDOMEN: Soft, nontender, nondistended, normoactive bowel sounds. No palpable organomegaly. MUSCULOSKELETAL: No joint swelling or deformity. EXTREMITIES: No cyanosis, clubbing, or pedal edema. NEUROLOGICAL: Gross neurological examination did not reveal any focal deficits. SKIN: No rashes. Redness and bandage seen in right buttock Assessment and plan Right gluteal abscess. Sepsis Hyperlipidemia Insulin-dependent diabetes mellitus Lactic acidosis Plan; Monitor vital signs. Monitor CBC Pending lactic acid levels. continue IV fluids. Continue IV clindamycin. Monitor blood sugar levels, continue current insulin regimen. Consult ID. Consult general surgery DVT prophylaxis: Past Medical History Past Medical History: Diabetes Mellitus, GERD/Reflux, Hyperlipidemia, Hypertension, Syncope Additional Past Medical History / Comment(s): Pt recently admitted to [facility] on 07/21/21 with uncontrolled IDDM and hyperkalemia. Other hx: Recurrent pancreatitis, hypertriglyceridemia, elevated lipase, IDDM type II, UTI, chronic low back pain, bulging discs, dental abscesses in past. History of Any Multi-Drug Resistant Organisms: None Reported Past Surgical History: Tubal Ligation Additional Past Surgical History / Comment(s): Age 7 had VSD repair Past Anesthesia/Blood Transfusion Reactions: No Reported Reaction Past Psychological History: No Psychological Hx Reported Additional Psychological History / Comment(s): She uses no assistive devices. She does not drive. She gets to appointments by walking or using the bus system. She has a glucometer at home. Smoking Status: Former smoker Past Alcohol Use History: None Reported Additional Past Alcohol Use History / Comment(s): Pt started smoking in 2000- pt states she quit smoking February or March of 2021 Past Drug Use History: None Reported - Past Family History Mother Family Medical History: No Reported History Additional Family Medical History / Comment(s): Mother was healthy. She is , pt cannot recall cause of . Father Family Medical History: Pneumonia Additional Family Medical History / Comment(s): Father at the age of 67yrs from pneumonia Medications and Allergies Home Medications Medication Instructions Recorded Confirmed Type Atorvastatin [Lipitor] 80 mg PO HS 06/25/19 03/03/22 History lisinopriL 40 mg PO DAILY 09/24/20 03/03/22 History metFORMIN HCL [Glucophage] 500 mg PO DAILY 09/24/20 03/03/22 History traZODone HCL 50 - 100 mg PO HS PRN 01/11/21 03/03/22 History Ergocalciferol (Vitamin D2) 1,250 mcg PO TU 03/03/21 03/03/22 History [Drisdol (50,000 Iu)] Albuterol Inhaler [Ventolin Hfa 2 puff INHALATION RT-QID PRN 07/28/21 03/03/22 History Inhaler] Esomeprazole Magnesium [NexIUM] 20 mg PO DAILY 01/30/22 03/03/22 History INSULIN ASPART (NovoLOG) [NovoLOG 30 unit SQ AC-TID #10 ml 02/06/22 03/03/22 Rx (formulary)] Insulin Detemir (Levemir) [Levemir] 90 unit SQ DAILY@0700 30 Days #1 02/06/22 03/03/22 Rx pen Allergies Allergy/AdvReac Type Severity Reaction Status Date / [facility] Allergy Rash/Hives Verified 03/03/22 13:07 Physical Exam Vitals: Vital Signs Temp Pulse Pulse Resp BP BP Pulse Ox 03/04/22 08:14 98.5 F 64 18 122/69 95 03/04/22 06:55 98.8 F 62 18 121/78 97 03/04/22 03:47 99 F 92 18 120/50 95 03/03/22 23:18 132/62 03/03/22 22:50 84 20 133/62 97 03/03/22 17:04 88 18 128/68 100 03/03/22 16:06 80 15 120/76 98 03/03/22 13:05 98.5 F 81 16 122/68 97 Intake and Output 03/03/22 03/04/22 03/04/22 22:59 06:59 14:59 Other: Weight 102.965 kg Results CBC & Chem 7: 03/04/22 04:25 03/04/22 04:25 Labs: Abnormal Lab Results - Last 24 Hours (Table) 03/03/22 03/03/22 03/03/22 Range/Units 14:43 14:43 14:43 WBC 17.0 H (3.8-10.6) k/uL RBC (4.10-5.20) X 10*6/uL Hgb 10.6 L (11.4-16.0) gm/dL Hct (37.2-46.3) % MCV 78.1 L (80.0-100.0) fL MCH 23.4 L (25.0-35.0) pg MCHC 30.0 L (31.0-37.0) g/dL RDW 18.6 H (11.5-15.5) % Plt Count 554 H (150-450) k/uL Immature Gran # (0.00-0.04) X 10*3/uL Neutrophils # 13.4 H (1.3-7.7) k/uL Sodium 132 L (137-145) mmol/L Chloride 96 L (98-107) mmol/L Glucose 482 H (74-99) mg/dL POC Glucose (mg/dL) (70-110) mg/dL Hemoglobin A1c 15.9 H (0.0-6.0) % Plasma Lactic Acid Travon (0.7-2.0) mmol/L Calcium (8.7-10.3) mg/dL Total Bilirubin (0.30-1.20) mg/dL Alkaline Phosphatase 190 H (38-126) U/L Total Protein (6.2-8.2) g/dL Albumin (3.8-4.9) g/dL Albumin/Globulin Ratio (1.60-3.17) g/dL Urine Appearance (Clear) Urine Protein (Negative) Urine Glucose (UA) (Negative) Ur Leukocyte Esterase (Negative) Urine WBC (0-5) /hpf Ur Squamous Epith Cells (0-4) /hpf Urine Bacteria (None) /hpf Hyaline Casts (0-2) /lpf Urine Mucus (None) /hpf 03/03/22 03/03/22 03/03/22 Range/Units 15:50 15:53 18:42 WBC (3.8-10.6) k/uL RBC (4.10-5.20) X 10*6/uL Hgb (11.4-16.0) gm/dL Hct (37.2-46.3) % MCV (80.0-100.0) fL MCH (25.0-35.0) pg MCHC (31.0-37.0) g/dL RDW (11.5-15.5) % Plt Count (150-450) k/uL Immature Gran # (0.00-0.04) X 10*3/uL Neutrophils # (1.3-7.7) k/uL Sodium (137-145) mmol/L Chloride (98-107) mmol/L Glucose (74-99) mg/dL POC Glucose (mg/dL) (70-110) mg/dL Hemoglobin A1c (0.0-6.0) % Plasma Lactic Acid Travon 3.0 H* 3.2 H* (0.7-2.0) mmol/L Calcium (8.7-10.3) mg/dL Total Bilirubin (0.30-1.20) mg/dL Alkaline Phosphatase (38-126) U/L Total Protein (6.2-8.2) g/dL Albumin (3.8-4.9) g/dL Albumin/Globulin Ratio (1.60-3.17) g/dL Urine Appearance Cloudy H (Clear) Urine Protein 2+ H (Negative) Urine Glucose (UA) 4+ H (Negative) Ur Leukocyte Esterase Large H (Negative) Urine WBC 7 H (0-5) /hpf Ur Squamous Epith Cells 15 H (0-4) /hpf Urine Bacteria Few H (None) /hpf Hyaline Casts 5 H (0-2) /lpf Urine Mucus Rare H (None) /hpf 03/03/22 03/03/22 03/04/22 Range/Units 22:10 22:53 01:18 WBC (3.8-10.6) k/uL RBC (4.10-5.20) X 10*6/uL Hgb (11.4-16.0) gm/dL Hct (37.2-46.3) % MCV (80.0-100.0) fL MCH (25.0-35.0) pg MCHC (31.0-37.0) g/dL RDW (11.5-15.5) % Plt Count (150-450) k/uL Immature Gran # (0.00-0.04) X 10*3/uL Neutrophils # (1.3-7.7) k/uL Sodium (137-145) mmol/L Chloride (98-107) mmol/L Glucose (74-99) mg/dL POC Glucose (mg/dL) 356 H (70-110) mg/dL Hemoglobin A1c (0.0-6.0) % Plasma Lactic Acid Travon 2.7 H* 3.0 H* (0.7-2.0) mmol/L Calcium (8.7-10.3) mg/dL Total Bilirubin (0.30-1.20) mg/dL Alkaline Phosphatase (38-126) U/L Total Protein (6.2-8.2) g/dL Albumin (3.8-4.9) g/dL Albumin/Globulin Ratio (1.60-3.17) g/dL Urine Appearance (Clear) Urine Protein (Negative) Urine Glucose (UA) (Negative) Ur Leukocyte Esterase (Negative) Urine WBC (0-5) /hpf Ur Squamous Epith Cells (0-4) /hpf Urine Bacteria (None) /hpf Hyaline Casts (0-2) /lpf Urine Mucus (None) /hpf 03/04/22 03/04/22 03/04/22 Range/Units 04:25 04:25 04:25 WBC 14.76 H (3.8-10.6) k/uL RBC 4.01 L (4.10-5.20) X 10*6/uL Hgb 9.0 L (11.4-16.0) gm/dL Hct 32.0 L (37.2-46.3) % MCV 79.8 L (80.0-100.0) fL MCH 22.4 L (25.0-35.0) pg MCHC 28.1 L (31.0-37.0) g/dL RDW 20.2 H (11.5-15.5) % Plt Count 471 H (150-450) k/uL Immature Gran # 0.07 H (0.00-0.04) X 10*3/uL Neutrophils # 10.84 H (1.3-7.7) k/uL Sodium (137-145) mmol/L Chloride (98-107) mmol/L Glucose 361 H (74-99) mg/dL POC Glucose (mg/dL) (70-110) mg/dL Hemoglobin A1c (0.0-6.0) % Plasma Lactic Acid Travon 2.4 H* (0.7-2.0) mmol/L Calcium 8.4 L (8.7-10.3) mg/dL Total Bilirubin <0.15 L (0.30-1.20) mg/dL Alkaline Phosphatase 166 H (38-126) U/L Total Protein 5.3 L (6.2-8.2) g/dL Albumin 2.8 L (3.8-4.9) g/dL Albumin/Globulin Ratio 1.12 L (1.60-3.17) g/dL Urine Appearance (Clear) Urine Protein (Negative) Urine Glucose (UA) (Negative) Ur Leukocyte Esterase (Negative) Urine WBC (0-5) /hpf Ur Squamous Epith Cells (0-4) /hpf Urine Bacteria (None) /hpf Hyaline Casts (0-2) /lpf Urine Mucus (None) /hpf 03/04/22 03/04/22 03/04/22 Range/Units 06:47 07:15 07:46 WBC (3.8-10.6) k/uL RBC (4.10-5.20) X 10*6/uL Hgb (11.4-16.0) gm/dL Hct (37.2-46.3) % MCV (80.0-100.0) fL MCH (25.0-35.0) pg MCHC (31.0-37.0) g/dL RDW (11.5-15.5) % Plt Count (150-450) k/uL Immature Gran # (0.00-0.04) X 10*3/uL Neutrophils # (1.3-7.7) k/uL Sodium (137-145) mmol/L Chloride (98-107) mmol/L Glucose (74-99) mg/dL POC Glucose (mg/dL) 357 H 347 H (70-110) mg/dL Hemoglobin A1c (0.0-6.0) % Plasma Lactic Acid Trvaon 2.5 H* (0.7-2.0) mmol/L Calcium (8.7-10.3) mg/dL Total Bilirubin (0.30-1.20) mg/dL Alkaline Phosphatase (38-126) U/L Total Protein (6.2-8.2) g/dL Albumin (3.8-4.9) g/dL Albumin/Globulin Ratio (1.60-3.17) g/dL Urine Appearance (Clear) Urine Protein (Negative) Urine Glucose (UA) (Negative) Ur Leukocyte Esterase (Negative) Urine WBC (0-5) /hpf Ur Squamous Epith Cells (0-4) /hpf Urine Bacteria (None) /hpf Hyaline Casts (0-2) /lpf Urine Mucus (None) /hpf Microbiology - Last 24 Hours (Table) 03/03/22 14:40 Blood Culture - Final Blood 03/03/22 15:50 Gram Stain - Preliminary Buttock Wound Culture - Preliminary 03/03/22 15:50 Anaerobic Culture - Preliminary Buttock Thrombosis Risk Factor Assmnt - Choose All That Apply Each Factor Represents 1 point: Age 41-60 years, Obesity (BMI >25) Other Risk Factors: No Other congenital or acquired thrombophilia - If yes, enter type in comment: No Thrombosis Risk Factor Assessment Total Risk Factor Score: 2 Thrombosis Risk Factor Assessment Level: Low Risk
[2022-03-04 11:36] LABS: Glucose,Whole Blood 458 mg/dL (70-110)
--- NOTE | 2022-03-04 11:46 | P.GSCN ---
History of Present Illness Consult date: 03/04/22 History of present illness: Patient presents with infection in the right buttock. She noticed some swelling for a couple of days. She got up at night and felt the back of her hip and some pus on her hand when she went into the restroom. She hasn't had issues with infections like this in the past. She is diabetic and her blood sugars have been high. No history of MRSA. She had a fever at home. Review of Systems All systems: negative Past Medical History Past Medical History: Diabetes Mellitus, GERD/Reflux, Hyperlipidemia, Hypertension, Syncope Additional Past Medical History / Comment(s): Pt recently admitted to [facility] on 07/21/21 with uncontrolled IDDM and hyperkalemia. Other hx: Recurrent pancreatitis, hypertriglyceridemia, elevated lipase, IDDM type II, UTI, chronic low back pain, bulging discs, dental abscesses in past. History of Any Multi-Drug Resistant Organisms: None Reported Past Surgical History: Tubal Ligation Additional Past Surgical History / Comment(s): Age 7 had VSD repair Past Anesthesia/Blood Transfusion Reactions: No Reported Reaction Past Psychological History: No Psychological Hx Reported Additional Psychological History / Comment(s): She uses no assistive devices. She does not drive. She gets to appointments by walking or using the bus system. She has a glucometer at home. Smoking Status: Former smoker Past Alcohol Use History: None Reported Additional Past Alcohol Use History / Comment(s): Pt started smoking in 2000- pt states she quit smoking February or March of 2021 Past Drug Use History: None Reported - Past Family History Mother Family Medical History: No Reported History Additional Family Medical History / Comment(s): Mother was healthy. She is , pt cannot recall cause of . Father Family Medical History: Pneumonia Additional Family Medical History / Comment(s): Father at the age of 67yrs from pneumonia Medications and Allergies Home Medications Medication Instructions Recorded Confirmed Type Atorvastatin [Lipitor] 80 mg PO HS 06/25/19 03/03/22 History lisinopriL 40 mg PO DAILY 09/24/20 03/03/22 History metFORMIN HCL [Glucophage] 500 mg PO DAILY 09/24/20 03/03/22 History traZODone HCL 50 - 100 mg PO HS PRN 01/11/21 03/03/22 History Ergocalciferol (Vitamin D2) 1,250 mcg PO TU 03/03/21 03/03/22 History [Drisdol (50,000 Iu)] Albuterol Inhaler [Ventolin Hfa 2 puff INHALATION RT-QID PRN 07/28/21 03/03/22 History Inhaler] Esomeprazole Magnesium [NexIUM] 20 mg PO DAILY 01/30/22 03/03/22 History INSULIN ASPART (NovoLOG) [NovoLOG 30 unit SQ AC-TID #10 ml 02/06/22 03/03/22 Rx (formulary)] Insulin Detemir (Levemir) [Levemir] 90 unit SQ DAILY@0700 30 Days #1 02/06/22 03/03/22 Rx pen Allergies Allergy/AdvReac Type Severity Reaction Status Date / Time levofloxacin [From Levaquin] Allergy Rash/Hives Verified 03/03/22 13:07 Surgical - Exam Osteopathic Statement: *. No significant issues noted on an osteopathic structural exam other than those noted in the History and Physical/Consult. Vital Signs Temp Pulse Resp BP Pulse Ox 98.5 F 81 16 122/68 97 03/03/22 13:05 03/03/22 13:05 03/03/22 13:05 03/03/22 13:05 03/03/22 13:05 - General no distress - Eyes normal ocular movement - Integumentary 10 x 15 cm area of erythema and desquamation of the scan on the right superior buttock. There is a little bit of drainage. No fluctuance. Mildly tender to palpation. - Psychiatric oriented to time, oriented to person, oriented to place, speech is normal, memory intact Results - Labs 03/04/22 04:25 03/04/22 04:25 Abnormal Lab Results - Last 24 Hours (Table) 03/03/22 03/03/22 03/03/22 Range/Units 14:43 14:43 14:43 WBC 17.0 H (3.8-10.6) k/uL RBC (4.10-5.20) X 10*6/uL Hgb 10.6 L (11.4-16.0) gm/dL Hct (37.2-46.3) % MCV 78.1 L (80.0-100.0) fL MCH 23.4 L (25.0-35.0) pg MCHC 30.0 L (31.0-37.0) g/dL RDW 18.6 H (11.5-15.5) % Plt Count 554 H (150-450) k/uL Immature Gran # (0.00-0.04) X 10*3/uL Neutrophils # 13.4 H (1.3-7.7) k/uL Sodium 132 L (137-145) mmol/L Chloride 96 L (98-107) mmol/L Glucose 482 H (74-99) mg/dL POC Glucose (mg/dL) (70-110) mg/dL Hemoglobin A1c 15.9 H (0.0-6.0) % Plasma Lactic Acid Travon (0.7-2.0) mmol/L Calcium (8.7-10.3) mg/dL Total Bilirubin (0.30-1.20) mg/dL Alkaline Phosphatase 190 H (38-126) U/L Total Protein (6.2-8.2) g/dL Albumin (3.8-4.9) g/dL Albumin/Globulin Ratio (1.60-3.17) g/dL Urine Appearance (Clear) Urine Protein (Negative) Urine Glucose (UA) (Negative) Ur Leukocyte Esterase (Negative) Urine WBC (0-5) /hpf Ur Squamous Epith Cells (0-4) /hpf Urine Bacteria (None) /hpf Hyaline Casts (0-2) /lpf Urine Mucus (None) /hpf 03/03/22 03/03/22 03/03/22 Range/Units 15:50 15:53 18:42 WBC (3.8-10.6) k/uL RBC (4.10-5.20) X 10*6/uL Hgb (11.4-16.0) gm/dL Hct (37.2-46.3) % MCV (80.0-100.0) fL MCH (25.0-35.0) pg MCHC (31.0-37.0) g/dL RDW (11.5-15.5) % Plt Count (150-450) k/uL Immature Gran # (0.00-0.04) X 10*3/uL Neutrophils # (1.3-7.7) k/uL Sodium (137-145) mmol/L Chloride (98-107) mmol/L Glucose (74-99) mg/dL POC Glucose (mg/dL) (70-110) mg/dL Hemoglobin A1c (0.0-6.0) % Plasma Lactic Acid Travon 3.0 H* 3.2 H* (0.7-2.0) mmol/L Calcium (8.7-10.3) mg/dL Total Bilirubin (0.30-1.20) mg/dL Alkaline Phosphatase (38-126) U/L Total Protein (6.2-8.2) g/dL Albumin (3.8-4.9) g/dL Albumin/Globulin Ratio (1.60-3.17) g/dL Urine Appearance Cloudy H (Clear) Urine Protein 2+ H (Negative) Urine Glucose (UA) 4+ H (Negative) Ur Leukocyte Esterase Large H (Negative) Urine WBC 7 H (0-5) /hpf Ur Squamous Epith Cells 15 H (0-4) /hpf Urine Bacteria Few H (None) /hpf Hyaline Casts 5 H (0-2) /lpf Urine Mucus Rare H (None) /hpf 03/03/22 03/03/22 03/04/22 Range/Units 22:10 22:53 01:18 WBC (3.8-10.6) k/uL RBC (4.10-5.20) X 10*6/uL Hgb (11.4-16.0) gm/dL Hct (37.2-46.3) % MCV (80.0-100.0) fL MCH (25.0-35.0) pg MCHC (31.0-37.0) g/dL RDW (11.5-15.5) % Plt Count (150-450) k/uL Immature Gran # (0.00-0.04) X 10*3/uL Neutrophils # (1.3-7.7) k/uL Sodium (137-145) mmol/L Chloride (98-107) mmol/L Glucose (74-99) mg/dL POC Glucose (mg/dL) 356 H (70-110) mg/dL Hemoglobin A1c (0.0-6.0) % Plasma Lactic Acid Travon 2.7 H* 3.0 H* (0.7-2.0) mmol/L Calcium (8.7-10.3) mg/dL Total Bilirubin (0.30-1.20) mg/dL Alkaline Phosphatase (38-126) U/L Total Protein (6.2-8.2) g/dL Albumin (3.8-4.9) g/dL Albumin/Globulin Ratio (1.60-3.17) g/dL Urine Appearance (Clear) Urine Protein (Negative) Urine Glucose (UA) (Negative) Ur Leukocyte Esterase (Negative) Urine WBC (0-5) /hpf Ur Squamous Epith Cells (0-4) /hpf Urine Bacteria (None) /hpf Hyaline Casts (0-2) /lpf Urine Mucus (None) /hpf 03/04/22 03/04/22 03/04/22 Range/Units 04:25 04:25 04:25 WBC 14.76 H (3.8-10.6) k/uL RBC 4.01 L (4.10-5.20) X 10*6/uL Hgb 9.0 L (11.4-16.0) gm/dL Hct 32.0 L (37.2-46.3) % MCV 79.8 L (80.0-100.0) fL MCH 22.4 L (25.0-35.0) pg MCHC 28.1 L (31.0-37.0) g/dL RDW 20.2 H (11.5-15.5) % Plt Count 471 H (150-450) k/uL Immature Gran # 0.07 H (0.00-0.04) X 10*3/uL Neutrophils # 10.84 H (1.3-7.7) k/uL Sodium (137-145) mmol/L Chloride (98-107) mmol/L Glucose 361 H (74-99) mg/dL POC Glucose (mg/dL) (70-110) mg/dL Hemoglobin A1c (0.0-6.0) % Plasma Lactic Acid Travon 2.4 H* (0.7-2.0) mmol/L Calcium 8.4 L (8.7-10.3) mg/dL Total Bilirubin <0.15 L (0.30-1.20) mg/dL Alkaline Phosphatase 166 H (38-126) U/L Total Protein 5.3 L (6.2-8.2) g/dL Albumin 2.8 L (3.8-4.9) g/dL Albumin/Globulin Ratio 1.12 L (1.60-3.17) g/dL Urine Appearance (Clear) Urine Protein (Negative) Urine Glucose (UA) (Negative) Ur Leukocyte Esterase (Negative) Urine WBC (0-5) /hpf Ur Squamous Epith Cells (0-4) /hpf Urine Bacteria (None) /hpf Hyaline Casts (0-2) /lpf Urine Mucus (None) /hpf 03/04/22 03/04/22 03/04/22 Range/Units 06:47 07:15 07:46 WBC (3.8-10.6) k/uL RBC (4.10-5.20) X 10*6/uL Hgb (11.4-16.0) gm/dL Hct (37.2-46.3) % MCV (80.0-100.0) fL MCH (25.0-35.0) pg MCHC (31.0-37.0) g/dL RDW (11.5-15.5) % Plt Count (150-450) k/uL Immature Gran # (0.00-0.04) X 10*3/uL Neutrophils # (1.3-7.7) k/uL Sodium (137-145) mmol/L Chloride (98-107) mmol/L Glucose (74-99) mg/dL POC Glucose (mg/dL) 357 H 347 H (70-110) mg/dL Hemoglobin A1c (0.0-6.0) % Plasma Lactic Acid Travon 2.5 H* (0.7-2.0) mmol/L Calcium (8.7-10.3) mg/dL Total Bilirubin (0.30-1.20) mg/dL Alkaline Phosphatase (38-126) U/L Total Protein (6.2-8.2) g/dL Albumin (3.8-4.9) g/dL Albumin/Globulin Ratio (1.60-3.17) g/dL Urine Appearance (Clear) Urine Protein (Negative) Urine Glucose (UA) (Negative) Ur Leukocyte Esterase (Negative) Urine WBC (0-5) /hpf Ur Squamous Epith Cells (0-4) /hpf Urine Bacteria (None) /hpf Hyaline Casts (0-2) /lpf Urine Mucus (None) /hpf 03/04/22 03/04/22 Range/Units 10:27 11:32 WBC (3.8-10.6) k/uL RBC (4.10-5.20) X 10*6/uL Hgb (11.4-16.0) gm/dL Hct (37.2-46.3) % MCV (80.0-100.0) fL MCH (25.0-35.0) pg MCHC (31.0-37.0) g/dL RDW (11.5-15.5) % Plt Count (150-450) k/uL Immature Gran # (0.00-0.04) X 10*3/uL Neutrophils # (1.3-7.7) k/uL Sodium (137-145) mmol/L Chloride (98-107) mmol/L Glucose (74-99) mg/dL POC Glucose (mg/dL) 458 H (70-110) mg/dL Hemoglobin A1c (0.0-6.0) % Plasma Lactic Acid Travon 3.2 H* (0.7-2.0) mmol/L Calcium (8.7-10.3) mg/dL Total Bilirubin (0.30-1.20) mg/dL Alkaline Phosphatase (38-126) U/L Total Protein (6.2-8.2) g/dL Albumin (3.8-4.9) g/dL Albumin/Globulin Ratio (1.60-3.17) g/dL Urine Appearance (Clear) Urine Protein (Negative) Urine Glucose (UA) (Negative) Ur Leukocyte Esterase (Negative) Urine WBC (0-5) /hpf Ur Squamous Epith Cells (0-4) /hpf Urine Bacteria (None) /hpf Hyaline Casts (0-2) /lpf Urine Mucus (None) /hpf Microbiology - Last 24 Hours (Table) 03/03/22 14:40 Blood Culture Gram Stain - Preliminary Blood 03/03/22 14:40 Blood Culture - Final Blood 03/03/22 15:50 Gram Stain - Preliminary Buttock Wound Culture - Preliminary 03/03/22 15:50 Anaerobic Culture - Preliminary Buttock Diabetes panel 03/03/22 03/03/22 03/04/22 Range/Units 14:43 14:43 04:25 Sodium 132 L 135 (137-145) mmol/L Potassium 4.8 4.5 (3.5-5.1) mmol/L Chloride 96 L 99 (98-107) mmol/L Carbon Dioxide 25 22.5 (22-30) mmol/L BUN 13 14.0 (7-17) mg/dL Creatinine 0.72 0.7 (0.52-1.04) mg/dL Glucose 482 H 361 H (74-99) mg/dL Hemoglobin A1c 15.9 H (0.0-6.0) % Calcium 8.6 8.4 L (8.4-10.2) mg/dL AST 34 28 (14-36) U/L ALT 30 26 (4-34) U/L Alkaline Phosphatase 190 H 166 H (38-126) U/L Total Protein 6.3 5.3 L (6.3-8.2) g/dL Albumin 3.5 2.8 L (3.5-5.0) g/dL Calcium panel 03/03/22 03/04/22 Range/Units 14:43 04:25 Calcium 8.6 8.4 L (8.4-10.2) mg/dL Albumin 3.5 2.8 L (3.5-5.0) g/dL Pituitary panel 03/03/22 03/04/22 Range/Units 14:43 04:25 Sodium 132 L 135 (137-145) mmol/L Potassium 4.8 4.5 (3.5-5.1) mmol/L Chloride 96 L 99 (98-107) mmol/L Carbon Dioxide 25 22.5 (22-30) mmol/L BUN 13 14.0 (7-17) mg/dL Creatinine 0.72 0.7 (0.52-1.04) mg/dL Glucose 482 H 361 H (74-99) mg/dL Calcium 8.6 8.4 L (8.4-10.2) mg/dL Adrenal panel 03/03/22 03/04/22 Range/Units 14:43 04:25 Sodium 132 L 135 (137-145) mmol/L Potassium 4.8 4.5 (3.5-5.1) mmol/L Chloride 96 L 99 (98-107) mmol/L Carbon Dioxide 25 22.5 (22-30) mmol/L BUN 13 14.0 (7-17) mg/dL Creatinine 0.72 0.7 (0.52-1.04) mg/dL Glucose 482 H 361 H (74-99) mg/dL Calcium 8.6 8.4 L (8.4-10.2) mg/dL Total Bilirubin 0.6 <0.15 L (0.2-1.3) mg/dL AST 34 28 (14-36) U/L ALT 30 26 (4-34) U/L Alkaline Phosphatase 190 H 166 H (38-126) U/L Total Protein 6.3 5.3 L (6.3-8.2) g/dL Albumin 3.5 2.8 L (3.5-5.0) g/dL Assessment and Plan (1) Abscess and cellulitis of gluteal region Current Visit: Yes Status: Acute Code(s): L02.31 - CUTANEOUS ABSCESS OF BUTTOCK; L03.317 - CELLULITIS OF BUTTOCK SNOMED Code(s): 343802726 (2) Lactic acidosis Current Visit: Yes Status: Acute Code(s): E87.2 - ACIDOSIS * DO NOT USE * SNOMED Code(s): 87718333 (3) Uncontrolled type 2 diabetes mellitus Current Visit: Yes Status: Acute Code(s): [id number] - SNOMED Code(s): 341821604 Plan: Continue current IV antibiotics pending culture and sensitivity. Control blood sugar. Currently no sign of undrained abscess but I'll be available if the area worsens and needs surgical attention. I'll reevaluate tomorrow.
[2022-03-04 12:30] LABS: Glucose,Whole Blood 351 mg/dL (70-110)
[2022-03-04] MEDS ORDERED: VANCOMYCIN IV PER PHARMACY 1 EACH MISC MISCELLANE PRN (15:07)
[2022-03-04] MEDS: VANCOMYCIN 1,750 MG in SODIUM CHLORIDE 0.9% 500 ML 500 ML IVPB SCH (15:34)
[2022-03-04 17:13] LABS: Glucose,Whole Blood 252 mg/dL (70-110)
[2022-03-04 19:56] LABS: Glucose,Whole Blood 294 mg/dL (70-110)
[2022-03-04] MEDS: ATORVASTATIN 80 MG TAB PO SCH (20:28)
--- NOTE | 2022-03-05 00:03 | P.CONS ---
History of Present Illness - Reason for Consult Consult date: 03/04/22 Right gluteal abscess and bacteremia Requesting physician: Spencer Nunez - Chief Complaint Right gluteal pain and swelling x few days - History of Present Illness Patient is a 51-year-old female with a past medical he significant for insulin-dependent Beatties mellitus obesity hyperlipidemia presenting to the ER for evaluation of right gluteal pain and swelling and drainage in this patient symptom has been going on for few days before presentation to the hospital patient denies any history of any trauma mention the area started a small pimple that has increased in size becoming more painful patient describing the pain to be sharp and throbbing almost 9-10 out of 10 and no radiation with associated swelling redness and did have minimal drainage, patient on presentation to the hospital did have a low-grade fever of 99 F patient did have an elevated lactic acid white count of 17,000 with a left shift kidney function has been normal liver enzymes are normal patient did have a blood culture drawn one of them came back positive with a coagulase-negative staph patient is currently being treated with a clindamycin infectious disease was consulted for further management of antibiotic therapy patient has been evaluated by general surgery recommending no surgical drainage at this point Review of Systems Positive point has been mentioned in the HPI rest of the systems are negative Past Medical History Past Medical History: Diabetes Mellitus, GERD/Reflux, Hyperlipidemia, Hypertension, Syncope Additional Past Medical History / Comment(s): Pt recently admitted to [facility] on 07/21/21 with uncontrolled IDDM and hyperkalemia. Other hx: Recurrent pancreatitis, hypertriglyceridemia, elevated lipase, IDDM type II, UTI, chronic low back pain, bulging discs, dental abscesses in past. History of Any Multi-Drug Resistant Organisms: None Reported Past Surgical History: Tubal Ligation Additional Past Surgical History / Comment(s): Age 7 had VSD repair Past Anesthesia/Blood Transfusion Reactions: No Reported Reaction Past Psychological History: No Psychological Hx Reported Additional Psychological History / Comment(s): She uses no assistive devices. She does not drive. She gets to appointments by walking or using the bus system. She has a glucometer at home. Smoking Status: Former smoker Past Alcohol Use History: None Reported Additional Past Alcohol Use History / Comment(s): Pt started smoking in 2000- pt states she quit smoking February or March of 2021 Past Drug Use History: None Reported - Past Family History Mother Family Medical History: No Reported History Additional Family Medical History / Comment(s): Mother was healthy. She is , pt cannot recall cause of . Father Family Medical History: Pneumonia Additional Family Medical History / Comment(s): Father at the age of 67yrs from pneumonia Medications and Allergies Home Medications Medication Instructions Recorded Confirmed Type Atorvastatin [Lipitor] 80 mg PO HS 06/25/19 03/03/22 History lisinopriL 40 mg PO DAILY 09/24/20 03/03/22 History metFORMIN HCL [Glucophage] 500 mg PO DAILY 09/24/20 03/03/22 History traZODone HCL 50 - 100 mg PO HS PRN 01/11/21 03/03/22 History Ergocalciferol (Vitamin D2) 1,250 mcg PO TU 03/03/21 03/03/22 History [Drisdol (50,000 Iu)] Albuterol Inhaler [Ventolin Hfa 2 puff INHALATION RT-QID PRN 07/28/21 03/03/22 History Inhaler] Esomeprazole Magnesium [NexIUM] 20 mg PO DAILY 01/30/22 03/03/22 History INSULIN ASPART (NovoLOG) [NovoLOG 30 unit SQ AC-TID #10 ml 02/06/22 03/03/22 Rx (formulary)] Insulin Detemir (Levemir) [Levemir] 90 unit SQ DAILY@0700 30 Days #1 02/06/22 03/03/22 Rx pen Allergies Allergy/AdvReac Type Severity Reaction Status Date / Time levofloxacin [From Levaquin] Allergy Rash/Hives Verified 03/03/22 13:07 Physical Exam Vitals: Vital Signs Temp Pulse Pulse Resp BP BP Pulse Ox 03/04/22 11:29 98.9 F 62 18 137/58 94 L 03/04/22 08:14 98.5 F 64 18 122/69 95 03/04/22 06:55 98.8 F 62 18 121/78 97 03/04/22 03:47 99 F 92 18 120/50 95 03/03/22 23:18 132/62 03/03/22 22:50 84 20 133/62 97 03/03/22 17:04 88 18 128/68 100 03/03/22 16:06 80 15 120/76 98 Intake and Output 03/04/22 03/04/22 03/04/22 06:59 14:59 22:59 Other: Weight 102.965 kg GENERAL DESCRIPTION: Middle-aged female lying in bed, no distress. No tachypnea or accessory muscle of respiration use. HEENT: Shows Pallor , no scleral icterus. Oral mucous membrane is dry. No pharyngeal erythema or thrush NECK: Trachea central, no thyromegaly. LUNGS: Unlabored breathing. Clear to auscultation anteriorly. No wheeze or crackle. HEART: S1, S2, regular rate and rhythm. No loud murmur ABDOMEN: Soft, no tenderness , guarding or rigidity, no organomegaly EXTREMITIES: No edema of feet. SKIN: Right gluteal area did have swelling redness and induration tender to touch. NEUROLOGICAL: The patient is awake, alert, oriented x3, mood and affect normal. Results CBC & Chem 7: 03/04/22 04:25 03/04/22 04:25 Labs: Abnormal Lab Results - Last 24 Hours (Table) 03/03/22 03/03/22 03/03/22 Range/Units 14:43 14:43 14:43 WBC 17.0 H (3.8-10.6) k/uL RBC (4.10-5.20) X 10*6/uL Hgb 10.6 L (11.4-16.0) gm/dL Hct (37.2-46.3) % MCV 78.1 L (80.0-100.0) fL MCH 23.4 L (25.0-35.0) pg MCHC 30.0 L (31.0-37.0) g/dL RDW 18.6 H (11.5-15.5) % Plt Count 554 H (150-450) k/uL Immature Gran # (0.00-0.04) X 10*3/uL Neutrophils # 13.4 H (1.3-7.7) k/uL Sodium 132 L (137-145) mmol/L Chloride 96 L (98-107) mmol/L Glucose 482 H (74-99) mg/dL POC Glucose (mg/dL) (70-110) mg/dL Hemoglobin A1c 15.9 H (0.0-6.0) % Plasma Lactic Acid Travon (0.7-2.0) mmol/L Calcium (8.7-10.3) mg/dL Total Bilirubin (0.30-1.20) mg/dL Alkaline Phosphatase 190 H (38-126) U/L Total Protein (6.2-8.2) g/dL Albumin (3.8-4.9) g/dL Albumin/Globulin Ratio (1.60-3.17) g/dL Urine Appearance (Clear) Urine Protein (Negative) Urine Glucose (UA) (Negative) Ur Leukocyte Esterase (Negative) Urine WBC (0-5) /hpf Ur Squamous Epith Cells (0-4) /hpf Urine Bacteria (None) /hpf Hyaline Casts (0-2) /lpf Urine Mucus (None) /hpf 03/03/22 03/03/22 03/03/22 Range/Units 15:50 15:53 18:42 WBC (3.8-10.6) k/uL RBC (4.10-5.20) X 10*6/uL Hgb (11.4-16.0) gm/dL Hct (37.2-46.3) % MCV (80.0-100.0) fL MCH (25.0-35.0) pg MCHC (31.0-37.0) g/dL RDW (11.5-15.5) % Plt Count (150-450) k/uL Immature Gran # (0.00-0.04) X 10*3/uL Neutrophils # (1.3-7.7) k/uL Sodium (137-145) mmol/L Chloride (98-107) mmol/L Glucose (74-99) mg/dL POC Glucose (mg/dL) (70-110) mg/dL Hemoglobin A1c (0.0-6.0) % Plasma Lactic Acid Travon 3.0 H* 3.2 H* (0.7-2.0) mmol/L Calcium (8.7-10.3) mg/dL Total Bilirubin (0.30-1.20) mg/dL Alkaline Phosphatase (38-126) U/L Total Protein (6.2-8.2) g/dL Albumin (3.8-4.9) g/dL Albumin/Globulin Ratio (1.60-3.17) g/dL Urine Appearance Cloudy H (Clear) Urine Protein 2+ H (Negative) Urine Glucose (UA) 4+ H (Negative) Ur Leukocyte Esterase Large H (Negative) Urine WBC 7 H (0-5) /hpf Ur Squamous Epith Cells 15 H (0-4) /hpf Urine Bacteria Few H (None) /hpf Hyaline Casts 5 H (0-2) /lpf Urine Mucus Rare H (None) /hpf 03/03/22 03/03/22 03/04/22 Range/Units 22:10 22:53 01:18 WBC (3.8-10.6) k/uL RBC (4.10-5.20) X 10*6/uL Hgb (11.4-16.0) gm/dL Hct (37.2-46.3) % MCV (80.0-100.0) fL MCH (25.0-35.0) pg MCHC (31.0-37.0) g/dL RDW (11.5-15.5) % Plt Count (150-450) k/uL Immature Gran # (0.00-0.04) X 10*3/uL Neutrophils # (1.3-7.7) k/uL Sodium (137-145) mmol/L Chloride (98-107) mmol/L Glucose (74-99) mg/dL POC Glucose (mg/dL) 356 H (70-110) mg/dL Hemoglobin A1c (0.0-6.0) % Plasma Lactic Acid Travon 2.7 H* 3.0 H* (0.7-2.0) mmol/L Calcium (8.7-10.3) mg/dL Total Bilirubin (0.30-1.20) mg/dL Alkaline Phosphatase (38-126) U/L Total Protein (6.2-8.2) g/dL Albumin (3.8-4.9) g/dL Albumin/Globulin Ratio (1.60-3.17) g/dL Urine Appearance (Clear) Urine Protein (Negative) Urine Glucose (UA) (Negative) Ur Leukocyte Esterase (Negative) Urine WBC (0-5) /hpf Ur Squamous Epith Cells (0-4) /hpf Urine Bacteria (None) /hpf Hyaline Casts (0-2) /lpf Urine Mucus (None) /hpf 03/04/22 03/04/22 03/04/22 Range/Units 04:25 04:25 04:25 WBC 14.76 H (3.8-10.6) k/uL RBC 4.01 L (4.10-5.20) X 10*6/uL Hgb 9.0 L (11.4-16.0) gm/dL Hct 32.0 L (37.2-46.3) % MCV 79.8 L (80.0-100.0) fL MCH 22.4 L (25.0-35.0) pg MCHC 28.1 L (31.0-37.0) g/dL RDW 20.2 H (11.5-15.5) % Plt Count 471 H (150-450) k/uL Immature Gran # 0.07 H (0.00-0.04) X 10*3/uL Neutrophils # 10.84 H (1.3-7.7) k/uL Sodium (137-145) mmol/L Chloride (98-107) mmol/L Glucose 361 H (74-99) mg/dL POC Glucose (mg/dL) (70-110) mg/dL Hemoglobin A1c (0.0-6.0) % Plasma Lactic Acid Travon 2.4 H* (0.7-2.0) mmol/L Calcium 8.4 L (8.7-10.3) mg/dL Total Bilirubin <0.15 L (0.30-1.20) mg/dL Alkaline Phosphatase 166 H (38-126) U/L Total Protein 5.3 L (6.2-8.2) g/dL Albumin 2.8 L (3.8-4.9) g/dL Albumin/Globulin Ratio 1.12 L (1.60-3.17) g/dL Urine Appearance (Clear) Urine Protein (Negative) Urine Glucose (UA) (Negative) Ur Leukocyte Esterase (Negative) Urine WBC (0-5) /hpf Ur Squamous Epith Cells (0-4) /hpf Urine Bacteria (None) /hpf Hyaline Casts (0-2) /lpf Urine Mucus (None) /hpf 03/04/22 03/04/22 03/04/22 Range/Units 06:47 07:15 07:46 WBC (3.8-10.6) k/uL RBC (4.10-5.20) X 10*6/uL Hgb (11.4-16.0) gm/dL Hct (37.2-46.3) % MCV (80.0-100.0) fL MCH (25.0-35.0) pg MCHC (31.0-37.0) g/dL RDW (11.5-15.5) % Plt Count (150-450) k/uL Immature Gran # (0.00-0.04) X 10*3/uL Neutrophils # (1.3-7.7) k/uL Sodium (137-145) mmol/L Chloride (98-107) mmol/L Glucose (74-99) mg/dL POC Glucose (mg/dL) 357 H 347 H (70-110) mg/dL Hemoglobin A1c (0.0-6.0) % Plasma Lactic Acid Travon 2.5 H* (0.7-2.0) mmol/L Calcium (8.7-10.3) mg/dL Total Bilirubin (0.30-1.20) mg/dL Alkaline Phosphatase (38-126) U/L Total Protein (6.2-8.2) g/dL Albumin (3.8-4.9) g/dL Albumin/Globulin Ratio (1.60-3.17) g/dL Urine Appearance (Clear) Urine Protein (Negative) Urine Glucose (UA) (Negative) Ur Leukocyte Esterase (Negative) Urine WBC (0-5) /hpf Ur Squamous Epith Cells (0-4) /hpf Urine Bacteria (None) /hpf Hyaline Casts (0-2) /lpf Urine Mucus (None) /hpf 03/04/22 03/04/22 03/04/22 Range/Units 10:27 11:32 12:28 WBC (3.8-10.6) k/uL RBC (4.10-5.20) X 10*6/uL Hgb (11.4-16.0) gm/dL Hct (37.2-46.3) % MCV (80.0-100.0) fL MCH (25.0-35.0) pg MCHC (31.0-37.0) g/dL RDW (11.5-15.5) % Plt Count (150-450) k/uL Immature Gran # (0.00-0.04) X 10*3/uL Neutrophils # (1.3-7.7) k/uL Sodium (137-145) mmol/L Chloride (98-107) mmol/L Glucose (74-99) mg/dL POC Glucose (mg/dL) 458 H 351 H (70-110) mg/dL Hemoglobin A1c (0.0-6.0) % Plasma Lactic Acid Travon 3.2 H* (0.7-2.0) mmol/L Calcium (8.7-10.3) mg/dL Total Bilirubin (0.30-1.20) mg/dL Alkaline Phosphatase (38-126) U/L Total Protein (6.2-8.2) g/dL Albumin (3.8-4.9) g/dL Albumin/Globulin Ratio (1.60-3.17) g/dL Urine Appearance (Clear) Urine Protein (Negative) Urine Glucose (UA) (Negative) Ur Leukocyte Esterase (Negative) Urine WBC (0-5) /hpf Ur Squamous Epith Cells (0-4) /hpf Urine Bacteria (None) /hpf Hyaline Casts (0-2) /lpf Urine Mucus (None) /hpf Microbiology - Last 24 Hours (Table) 03/03/22 14:40 Blood Culture Gram Stain - Preliminary Blood Blood Culture - Preliminary Coagulase Negative Staph 03/03/22 14:40 Blood Culture - Final Blood 03/03/22 15:50 Gram Stain - Preliminary Buttock Wound Culture - Preliminary 03/03/22 15:50 Anaerobic Culture - Preliminary Buttock Assessment and Plan (1) Positive blood culture Current Visit: Yes Status: Acute Code(s): R78.81 - BACTEREMIA SNOMED Code(s): 605354792 (2) Abscess and cellulitis of gluteal region Current Visit: Yes Status: Acute Code(s): L02.31 - CUTANEOUS ABSCESS OF BUTTOCK; L03.317 - CELLULITIS OF BUTTOCK SNOMED Code(s): 721883356 Plan: 1patient present to hospital with right gluteal abscess and cellulitis likely from gram-positive skin barry and high clinic suspicion for community associated MRSA. 2 Positive blood culture with coagulase-negative staph likely skin contamination 3-Marked area of the redness and induration 4-discontinue clindamycin 5-vancomycin pharmacy to dose target trough of 15 while watching kidney function and vancomycin trough closely We will follow on clinical condition and cultures to further adjust medication if needed Thank you for this consultation will follow this patient along with you Time with Patient: Greater than 30
[2022-03-05] MEDS: MORPHINE SULFATE 4 MG/ML SYRINGE IV PRN ×6 (00:22→20:57)
[2022-03-05] MEDS: HEPARIN SODIUM,PORCINE/PF 5,000 UNIT/0.5 ML SYRINGE SQ SCH ×3 (00:22→16:03)
[2022-03-05] MEDS: SODIUM CHLORIDE 0.9% 1,000 ML IV SCH ×3 (00:23→20:02)
[2022-03-05] MEDS: VANCOMYCIN 1,750 MG in SODIUM CHLORIDE 0.9% 500 ML 500 ML IVPB SCH ×2 (03:55→16:02)
[2022-03-05 07:07] LABS: Glucose,Whole Blood 347 mg/dL (70-110)
[2022-03-05] MEDS: INSULIN DETEMIR (LEVEMIR) 100 UNIT/ML SYR SQ SCH (08:22)
[2022-03-05] MEDS: lisinopriL 20 MG TAB PO SCH (08:23)
[2022-03-05] MEDS: INSULIN ASPART (NovoLOG) 100 UNIT/ML VIAL SQ SCH ×4 (08:23→20:57)
[2022-03-05] MEDS: PANTOPRAZOLE 40 MG TABLET PO SCH (08:23)
[2022-03-05 08:44] LABS: African American GFR (CKD) 117.9 (60.0-200.0); Non-African American GFR(CKD) 101.7 (60.0-200.0)
[2022-03-05 09:12] VITALS: BMI 44.3
[2022-03-05 11:50] LABS: Glucose,Whole Blood 363 mg/dL (70-110)
--- NOTE | 2022-03-05 12:26 | P.PN ---
Subjective Progress Note Date: 03/05/22 Patient is seen on rounds. Having less pain and drainage Objective - Vital Signs Vital signs: Vital Signs Temp 97.9 F 03/05/22 05:00 Pulse 60 03/05/22 05:00 Resp 18 03/05/22 05:00 BP 117/52 03/05/22 05:00 Pulse Ox 93 L 03/05/22 05:00 FiO2 Intake & Output 03/04/22 03/05/22 03/05/22 18:59 06:59 18:59 Intake Total 4580 300 Balance 4580 300 Weight 102.965 kg 102.965 kg Intake: Intake, IV Titration 1900 Amount Clindamycin 600 mg In 100 Dextrose 5% in Water 50 ml @ 50 mls/hr IVPB Q6H YARON Rx#:[id number] Sodium Chloride 0.9% 1, 1300 000 ml @ 130 mls/hr IV . Q7H42M YARON Rx#:[id number] Vancomycin 1,750 mg In 500 Sodium Chloride 0.9% 500 ml 500 ml @ 167 mls/hr IVPB Q12H YARON Rx#: [id number] Oral 2680 300 Other: Voiding Method Toilet # Voids 6 2 - Constitutional General appearance: Present: cooperative - Integumentary Integumentary Comment(s): No areas of fluctuance or undrained abscess - Labs CBC & Chem 7: 03/04/22 04:25 03/05/22 05:53 Labs: Abnormal Lab Results - Last 24 Hours (Table) 03/04/22 03/04/22 03/04/22 Range/Units 12:28 15:10 17:10 POC Glucose (mg/dL) 351 H 252 H (70-110) mg/dL Plasma Lactic Acid Travon 3.2 H* (0.7-2.0) mmol/L 03/04/22 03/04/22 03/04/22 Range/Units 19:11 19:53 22:25 POC Glucose (mg/dL) 294 H (70-110) mg/dL Plasma Lactic Acid Travon 2.6 H* 2.9 H* (0.7-2.0) mmol/L 03/05/22 03/05/22 03/05/22 Range/Units 01:15 05:53 07:06 POC Glucose (mg/dL) 347 H (70-110) mg/dL Plasma Lactic Acid Travon 2.3 H* 2.3 H* (0.7-2.0) mmol/L 03/05/22 03/05/22 Range/Units 08:46 11:48 POC Glucose (mg/dL) 363 H (70-110) mg/dL Plasma Lactic Acid Travon 3.2 H* (0.7-2.0) mmol/L Microbiology - Last 24 Hours (Table) 03/03/22 14:40 Blood Culture Gram Stain - Final Blood Blood Culture - Final Coagulase Negative Staph 03/03/22 15:50 Gram Stain - Preliminary Buttock Wound Culture - Preliminary Presumptive MRSA 03/03/22 14:25 Blood Culture - Preliminary Blood No Growth after 24 hours 03/03/22 14:40 Blood Culture - Final Blood Assessment and Plan (1) Abscess and cellulitis of gluteal region Current Visit: Yes Status: Acute Code(s): L02.31 - CUTANEOUS ABSCESS OF BUTTOCK; L03.317 - CELLULITIS OF BUTTOCK SNOMED Code(s): 688803662 (2) Lactic acidosis Current Visit: Yes Status: Acute Code(s): E87.2 - ACIDOSIS * DO NOT USE * SNOMED Code(s): 95872147 (3) Uncontrolled type 2 diabetes mellitus Current Visit: Yes Status: Acute Code(s): PRS7001 - SNOMED Code(s): 277602329 Plan: Presumptively this looks like MRSA. There is no signs at this point that she will need any surgical drainage or debridement. I will follow-up as needed. Notify me if anything changes and you would like the patients wound reevaluated
[2022-03-05 16:51] LABS: Glucose,Whole Blood 363 mg/dL (70-110)
[2022-03-05 20:55] LABS: Glucose,Whole Blood 372 mg/dL (70-110)
[2022-03-05] MEDS: ATORVASTATIN 80 MG TAB PO SCH (20:57)
[2022-03-06] MEDS: HEPARIN SODIUM,PORCINE/PF 5,000 UNIT/0.5 ML SYRINGE SQ SCH ×4 (00:03→23:20)
[2022-03-06] MEDS: MORPHINE SULFATE 4 MG/ML SYRINGE IV PRN ×6 (01:15→23:18)
--- NOTE | 2022-03-06 03:45 | PN ---
PROGRESS NOTE CHIEF COMPLAINT: Abscess in the right buttock. HISTORY OF PRESENT ILLNESS: This lady is doing fairly well except some discomfort where the abscess apparently was drained. She has been seen by Surgery and they do not plan any further intervention. Blood sugars are not controlled. REVIEW OF SYMPTOMS: Other than having the discomfort in the buttock area, she has not had any complaints. She is not short of breath and she has not had any chest pain or abdominal pain. IMPRESSION: 1. Right buttock abscess. 2. Uncontrolled insulin-dependent diabetes mellitus. 3. History of pancreatitis. 4. History of hypertriglyceridemia. PLAN: Continue with IV fluids and antibiotics and continue to follow the wound. She can probably go home fairly soon. MMODL / IJN: [id number] /
[2022-03-06] MEDS: VANCOMYCIN 1,750 MG in SODIUM CHLORIDE 0.9% 500 ML 500 ML IVPB SCH ×2 (04:15→16:53)
[2022-03-06] MEDS: SODIUM CHLORIDE 0.9% 1,000 ML IV SCH ×3 (04:16→15:49)
[2022-03-06 07:21] LABS: Glucose,Whole Blood 222 mg/dL (70-110)
[2022-03-06] MEDS: INSULIN DETEMIR (LEVEMIR) 100 UNIT/ML SYR SQ SCH (08:14)
[2022-03-06] MEDS: INSULIN ASPART (NovoLOG) 100 UNIT/ML VIAL SQ SCH ×4 (08:15→20:32)
[2022-03-06] MEDS: lisinopriL 20 MG TAB PO SCH (08:32)
[2022-03-06] MEDS: PANTOPRAZOLE 40 MG TABLET PO SCH (08:32)
[2022-03-06] MEDS ORDERED: ERGOCALCIFEROL 1,250 MCG (50,000 IU) CAPSULE PO SCH (09:00)
[2022-03-06 11:29] LABS: Glucose,Whole Blood 283 mg/dL (70-110)
[2022-03-06] MEDS: AMOXIC-POT CLAV 875-125MG 1 EACH TAB PO SCH (13:10)
[2022-03-06 17:19] LABS: Glucose,Whole Blood 287 mg/dL (70-110)
[2022-03-06 20:16] LABS: Glucose,Whole Blood 346 mg/dL (70-110)
[2022-03-06] MEDS: ATORVASTATIN 80 MG TAB PO SCH (20:31)
[2022-03-06] MEDS: ACETAMINOPHEN TAB 325 MG TAB PO PRN (20:31)
--- NOTE | 2022-03-07 02:58 | PN ---
PROGRESS NOTE CHIEF COMPLAINT: Abscess of the right buttock and uncontrolled diabetes. HISTORY OF PRESENT ILLNESS: This lady is doing fairly well. Temperature has been down. The abscess is draining. Pain is improving. PHYSICAL EXAMINATION: GROIN: The large abscess in the right buttock is still draining. ABDOMEN: Soft, nontender. CHEST: Clear. CARDIAC: Normal. IMPRESSION: 1. Abscess of the right buttock. 2. Diabetes mellitus. 3. Pancreatitis. 4. Hypertriglyceridemia. PLAN: Continue with IV antibiotics for another day and then probably discharge. MMODL / IJN: [id number] /
[2022-03-07] MEDS ORDERED: VANCOMYCIN TROUGH DUE 1 EACH MISC MISCELLANE ONE (03:00)
[2022-03-07] MEDS: SODIUM CHLORIDE 0.9% 1,000 ML IV SCH ×4 (03:18→21:38)
[2022-03-07] MEDS: VANCOMYCIN 1,750 MG in SODIUM CHLORIDE 0.9% 500 ML 500 ML IVPB SCH (03:18)
[2022-03-07] MEDS: MORPHINE SULFATE 4 MG/ML SYRINGE IV PRN ×5 (03:18→20:22)
[2022-03-07 07:18] LABS: Glucose,Whole Blood 322 mg/dL (70-110)
--- NOTE | 2022-03-07 07:18 | P.PN ---
Subjective Progress Note Date: 03/05/22 Principal diagnosis: right gluteal abscess and cellulitis Patient is a 51 year old female presenting to the hospital with right gluteal pain and swelling redness has been diagnosed with the cellulitis concerning for possible abscess did have a positive blood culture staph epi likely contamination local culture growing MRSA On today's evaluation that is 03/05/2022, the patient denies having any fever or any chills patient pain to the right coronary has slightly decreased intensity patient denies having any chest pain or shortness of breath or cough no nausea no vomiting no diarrhea Objective - Vital Signs Vital signs: Vital Signs Temp 97.9 F 03/05/22 05:00 Pulse 60 03/05/22 05:00 Resp 18 03/05/22 05:00 BP 117/52 03/05/22 05:00 Pulse Ox 93 L 03/05/22 05:00 FiO2 Intake & Output 03/04/22 03/05/22 03/05/22 18:59 06:59 18:59 Intake Total 4580 300 Balance 4580 300 Weight 102.965 kg 102.965 kg Intake: Intake, IV Titration 1900 Amount Clindamycin 600 mg In 100 Dextrose 5% in Water 50 ml @ 50 mls/hr IVPB Q6H YARON Rx#:[id number] Sodium Chloride 0.9% 1, 1300 000 ml @ 130 mls/hr IV . Q7H42M YARON Rx#:[id number] Vancomycin 1,750 mg In 500 Sodium Chloride 0.9% 500 ml 500 ml @ 167 mls/hr IVPB Q12H YARON Rx#: [id number] Oral 2680 300 Other: Voiding Method Toilet # Voids 6 2 - Exam GENERAL DESCRIPTION: middle age female lying in bed in no distress RESPIRATORY SYSTEM: Unlabored breathing , decreased breath sounds at bases HEART: S1 S2 regular rate and rhythm , ABDOMEN: Soft , no tenderness right gluteal area did have swelling , redness and induration EXTREMITIES: No edema feet - Labs CBC & Chem 7: 03/04/22 04:25 03/05/22 05:53 Labs: Abnormal Lab Results - Last 24 Hours (Table) 03/04/22 03/04/22 03/04/22 Range/Units 12:28 15:10 17:10 POC Glucose (mg/dL) 351 H 252 H (70-110) mg/dL Plasma Lactic Acid Travon 3.2 H* (0.7-2.0) mmol/L 03/04/22 03/04/22 03/04/22 Range/Units 19:11 19:53 22:25 POC Glucose (mg/dL) 294 H (70-110) mg/dL Plasma Lactic Acid Travon 2.6 H* 2.9 H* (0.7-2.0) mmol/L 03/05/22 03/05/22 03/05/22 Range/Units 01:15 05:53 07:06 POC Glucose (mg/dL) 347 H (70-110) mg/dL Plasma Lactic Acid Travon 2.3 H* 2.3 H* (0.7-2.0) mmol/L 03/05/22 03/05/22 Range/Units 08:46 11:48 POC Glucose (mg/dL) 363 H (70-110) mg/dL Plasma Lactic Acid Travon 3.2 H* (0.7-2.0) mmol/L Microbiology - Last 24 Hours (Table) 03/03/22 14:40 Blood Culture Gram Stain - Final Blood Blood Culture - Final Coagulase Negative Staph 03/03/22 15:50 Gram Stain - Preliminary Buttock Wound Culture - Preliminary Presumptive MRSA 03/03/22 14:25 Blood Culture - Preliminary Blood No Growth after 24 hours 03/03/22 14:40 Blood Culture - Final Blood Assessment and Plan (1) Positive blood culture Current Visit: Yes Status: Acute Code(s): R78.81 - BACTEREMIA SNOMED Code(s): 552501909 (2) Abscess and cellulitis of gluteal region Current Visit: Yes Status: Acute Code(s): L02.31 - CUTANEOUS ABSCESS OF BUTTOCK; L03.317 - CELLULITIS OF BUTTOCK SNOMED Code(s): 092222625 Plan: 1patient present to hospital with right gluteal abscess and cellulitis likely from gram-positive skin barry and high clinic suspicion for community associated MRSA. 2 Positive blood culture with coagulase-negative staph likely skin contamination 3-Patient to continue with pharmacy to dose target trough of 15 while watching kidney function and vancomycin trough closely Time with Patient: Less than 30
--- NOTE | 2022-03-07 07:19 | P.PN ---
Subjective Progress Note Date: 03/06/22 Principal diagnosis: right gluteal abscess and cellulitis Patient is a 51 year old female presenting to the hospital with right gluteal pain and swelling redness has been diagnosed with the cellulitis concerning for possible abscess did have a positive blood culture staph epi likely contamination local culture growing MRSA On today's evaluation that is 03/06/2022, the patient remains to be afebrile, patient pain to the right gluteal area has slightly decreased intensity, the patient denies having any chest pain or shortness of breath or cough no nausea no vomiting no diarrhea Objective - Vital Signs Vital signs: Vital Signs Temp 98.4 F 03/06/22 05:10 Pulse 60 03/06/22 05:10 Resp 16 03/06/22 05:10 BP 116/71 03/06/22 05:10 Pulse Ox 97 03/06/22 05:10 FiO2 Intake & Output 03/05/22 03/06/22 03/06/22 18:59 06:59 18:59 Output Total 2 Balance -2 Weight 102.965 kg Output: Urine 2 Other: Voiding Method Toilet # Voids 3 - Exam GENERAL DESCRIPTION: middle age female lying in bed in no distress RESPIRATORY SYSTEM: Unlabored breathing , decreased breath sounds at bases HEART: S1 S2 regular rate and rhythm , ABDOMEN: Soft , no tenderness right gluteal area did have swelling , redness and induration EXTREMITIES: No edema feet - Labs CBC & Chem 7: 03/04/22 04:25 03/05/22 05:53 Labs: Abnormal Lab Results - Last 24 Hours (Table) 03/05/22 03/05/22 03/05/22 Range/Units 11:48 11:58 15:39 POC Glucose (mg/dL) 363 H (70-110) mg/dL Plasma Lactic Acid Travon 2.9 H* 2.9 H* (0.7-2.0) mmol/L 03/05/22 03/05/22 03/05/22 Range/Units 16:49 19:00 20:54 POC Glucose (mg/dL) 363 H 372 H (70-110) mg/dL Plasma Lactic Acid Travon 3.1 H* (0.7-2.0) mmol/L 03/05/22 03/06/22 03/06/22 Range/Units 21:34 07:19 11:28 POC Glucose (mg/dL) 222 H 283 H (70-110) mg/dL Plasma Lactic Acid Travon 2.6 H* (0.7-2.0) mmol/L Microbiology - Last 24 Hours (Table) 03/03/22 15:50 Gram Stain - Final Buttock Wound Culture - Final Methicillin resist S. aureus 03/03/22 14:25 Blood Culture - Preliminary Blood No Growth after 48 hours 03/03/22 15:50 Anaerobic Culture - Preliminary Buttock 03/03/22 14:40 Blood Culture Gram Stain - Final Blood Blood Culture - Final Coagulase Negative Staph Assessment and Plan (1) Positive blood culture Current Visit: Yes Status: Acute Code(s): R78.81 - BACTEREMIA SNOMED Code(s): 506901351 (2) Abscess and cellulitis of gluteal region Current Visit: Yes Status: Acute Code(s): L02.31 - CUTANEOUS ABSCESS OF BUTTOCK; L03.317 - CELLULITIS OF BUTTOCK SNOMED Code(s): 252665456 Plan: 1patient present to hospital with right gluteal abscess and cellulitis likely from gram-positive skin barry and high clinic suspicion for community associated MRSA. Local culture has been finalized as MRSA 2 Positive blood culture with coagulase-negative staph likely skin contamination 3-Patient seemed to show some clinical improvement still has significant burden of disease hence will continue with pharmacy to dose target trough of 15 while watching kidney function and vancomycin trough closely Time with Patient: Less than 30
[2022-03-07] MEDS: HEPARIN SODIUM,PORCINE/PF 5,000 UNIT/0.5 ML SYRINGE SQ SCH ×3 (08:15→23:11)
[2022-03-07] MEDS: AMOXIC-POT CLAV 875-125MG 1 EACH TAB PO SCH (08:16)
[2022-03-07] MEDS: lisinopriL 20 MG TAB PO SCH (08:16)
[2022-03-07] MEDS: INSULIN DETEMIR (LEVEMIR) 100 UNIT/ML SYR SQ SCH (08:16)
[2022-03-07] MEDS: PANTOPRAZOLE 40 MG TABLET PO SCH (08:16)
[2022-03-07] MEDS: INSULIN ASPART (NovoLOG) 100 UNIT/ML VIAL SQ SCH ×4 (08:16→21:01)
[2022-03-07 11:24] LABS: Glucose,Whole Blood 325 mg/dL (70-110)
[2022-03-07] MEDS: VANCOMYCIN 2,000 MG in SODIUM CHLORIDE 0.9% 500 ML 500 ML IVPB SCH (16:13)
[2022-03-07 17:05] LABS: Glucose,Whole Blood 240 mg/dL (70-110)
[2022-03-07] MEDS: ATORVASTATIN 80 MG TAB PO SCH (20:21)
[2022-03-07 20:58] LABS: Glucose,Whole Blood 247 mg/dL (70-110)
[2022-03-08] MEDS: MORPHINE SULFATE 4 MG/ML SYRINGE IV PRN ×3 (00:41→09:43)
[2022-03-08] MEDS: VANCOMYCIN 2,000 MG in SODIUM CHLORIDE 0.9% 500 ML 500 ML IVPB SCH (04:59)
[2022-03-08] MEDS: SODIUM CHLORIDE 0.9% 1,000 ML IV SCH ×2 (05:00→13:40)
[2022-03-08 05:05] VITALS: RESP 18
[2022-03-08 07:02] LABS: Glucose,Whole Blood 207 mg/dL (70-110)
[2022-03-08 07:47] LABS: African American GFR (CKD) >90 (>60 ml/min/1.73 sqM); Non-African American GFR(CKD) >90 (>60 ml/min/1.73 sqM)
[2022-03-08] MEDS: HEPARIN SODIUM,PORCINE/PF 5,000 UNIT/0.5 ML SYRINGE SQ SCH (08:20)
[2022-03-08] MEDS: INSULIN DETEMIR (LEVEMIR) 100 UNIT/ML SYR SQ SCH (08:21)
[2022-03-08] MEDS: INSULIN ASPART (NovoLOG) 100 UNIT/ML VIAL SQ SCH ×2 (08:22→13:39)
[2022-03-08] MEDS: AMOXIC-POT CLAV 875-125MG 1 EACH TAB PO SCH (09:43)
[2022-03-08] MEDS: lisinopriL 20 MG TAB PO SCH (09:43)
[2022-03-08] MEDS: PANTOPRAZOLE 40 MG TABLET PO SCH (09:43)
[2022-03-08 11:03] VITALS: BP 123/61; PULSE 61; TEMP 98.9
[2022-03-08 11:25] LABS: Glucose,Whole Blood 292 mg/dL (70-110)
--- NOTE | 2022-03-08 12:05 | CDI ---
Documentation Clarification Form Date: 03/08/2022 11:28:42 AM From: Silvana Fontenot RN CCDS Admit Date: 03/06/2022 02:42:00 PM Patient Name: Dayna Le Visit Number: [id number] Discharge Date: ATTENTION: The Clinical Documentation Specialists (CDI) and [facility] Coding Staff appreciate your assistance in clarifying documentation. Please respond to the clarification below the line at the bottom and electronically sign. The CDI & [facility] Coding staff will review the response and follow-up if needed. Please note: Queries are made part of the Legal Health Record. If you have any questions, please contact the author of this message via ITS. Dr. Guillermo Cerda Sepsis is documented in the H&P, 03/04, but is not noted in subsequent documentation. Clarification is requested. History/Risk Factors: 51-year-old female presents to the ED with right buttock infection. Patient was having fevers at home and yesterday noticed purulent fluid from right buttock. Medical History: Type 2 DM and chronic pancreatitis. Clinical Indicators: VSS: 03/03 B/P 122/68, HR 81, RR 16, SpO2 97% room air Labs: 03/03 Wbc 17.0; Neutrophils 13.4; Lactic acid 3.0 Blood culture: 03/03 Coagulase Negative staph. Final Buttock culture: 03/03 Methicillin resist S. aureus. Final Surgical consult: 03/04 Abscess and cellulitis of the gluteal region, 10 x 15cm area of erythema and desquamation of the scan on the right superior buttock. There is a little bit of drainage. No fluctuance. Mildly tender to palpation. Treatment: 03/03 0.9ns 1L bolus 03/03 Clindamycin IVPB x 1; 03/03 03/04 Clindamycin IVPB Q6H; 03/04 03/07 Vancomycin IVPB Q12H; 03/06 current Augmentin PO Daily; 03/07 current Vancomycin IVPB Q12H Please clarify if the Sepsis is: [ ] Sepsis confirmed, remains under treatment [ ] Sepsis confirmed, resolved [ ] Sepsis ruled out [ ] Other condition, please specify [ ] Unable to determine (Template Last Revised: June 2020) MTDD
[2022-03-09] MEDS ORDERED: VANCOMYCIN TROUGH DUE 1 EACH MISC MISCELLANE ONE (03:00)
--- NOTE | 2022-03-09 07:09 | DS ---
DISCHARGE SUMMARY CHIEF COMPLAINT: Abscess of the right buttock. HISTORY OF PRESENT ILLNESS AND PHYSICAL EXAM: Details of this lady's history and physical can be found in the initial workup. LABORATORY STUDIES: While she was in the hospital, she had laboratory studies, details of which can be found in the laboratory section of her chart. COURSE IN THE HOSPITAL: After admission, she was placed on bedrest on intravenous fluids and was referred to Surgery and Infectious Disease. Abscess was already draining and incision and drainage was not felt to be necessary. She is kept on antibiotics and area of induration and cellulitis slowly receded. She is doing well, it was felt that she could go home on the and she will go home on usual activity, diet, medication along with antibiotic management and she will be seen in the office in several days. FINAL DIAGNOSES: 1. Abscess of the right buttock with Methicillin-resistant Staphylococcus aureus. 2. Uncontrolled diabetes. 3. Obesity. 4. Chronic relapsing pancreatitis. 5. Hypertriglyceridemia. OPERATIONS: None. CONSULTATIONS: Surgery, Infectious Disease. She is improved. MMODL / GOOD: [id number] /
--- NOTE | 2022-03-09 07:21 | PN ---
PROGRESS NOTE DATE OF SERVICE: 03/07/2022 CHIEF COMPLAINT: Right buttock abscess and uncontrolled diabetes. HISTORY OF PRESENT ILLNESS: This lady's abscess continues to drain and the area of redness and induration is slowly receding. She is still on IV antibiotics. Blood sugars are slightly elevated, but are actually quite good for her. PHYSICAL EXAMINATION: CHEST: Clear. CARDIAC: Normal. ABDOMEN: Very protuberant, soft and nontender. GROIN: The induration and redness in the right buttock have improved and drainage continues. IMPRESSION: 1. Abscess, right buttock. 2. Uncontrolled diabetes. PLAN: Probably home in the next day or 2 if the abscess continues to drain well. MMODL / IJN: [id number] /
--- NOTE | 2022-03-09 13:34 | CDI ---
Pt Name: Dayna Le CONFIDENTIAL MR#: [id number] Adm Date: 03/06/2022 02:42:00 PM Printed:03/09/2022 Physician Documentation Request Page 2 of 2 ICD-10-CM Ready Physicians Documentation Request This Form is Not a Permanent Document in the Medical Record Pt Name: Dayna Le MR #: [id number] Payor: MEDICARE HMO Unit/Bed: [id number] Adm Date: 03/06/2022 02:42:00 PM Reviewer: Ce Jiménez Ext. Query Date: 03/09/2022 01:24:00 PM By submitting this query, we are merely seeking further clarification of documentation to accurately reflect all conditions that you are monitoring, evaluating, treating or that extend the hospitalization or utilize additional resources of care. Please utilize your independent clinical judgment when addressing the question(s) below. Dear Doctor Guillermo Cerda, The patients Clinical Indicators include: There is documentation of chronic relapsing pancreatitis, recurrent pancreatitis in DCS, H and P and Consult. In Progress note 03/06 Pancreatitis is documented. Additional clarification of the acuity of the condition is requested. History/Risk Factors: relapsing pancreatitis Clinical Indicators: elevated Alk phos 190 Treatment: Clindamycin and Vanco Can you please clarify the acuity of the Pancreatitis [ ] Acute [ ] Sub-acute [ ] Chronic [ ] Acute and chronic pancreatitis [ ] History of [ ] Other, please specify [ ] Unable to determine PLEASE DOCUMENT ANY ADDITIONAL DIAGNOSES AND/OR SPECIFICITY IN THE PROGRESS NOTES AND/OR DISCHARGE SUMMARY. Agreed & documented Clinically unable to determine/unknown Disagree with the above request Need to discuss MTDD
--- NOTE | 2022-03-10 06:13 | MISC ---
MISCELLANOUS REPORT Sepsis, ruled out. MMODL / IJN: [id number] /
--- NOTE | 2022-03-15 18:00 | P.PN ---
Subjective Progress Note Date: 03/07/22 Principal diagnosis: right gluteal abscess and cellulitis Patient is a 51 year old female presenting to the hospital with right gluteal pain and swelling redness has been diagnosed with the cellulitis concerning for possible abscess did have a positive blood culture staph epi likely contamination local culture growing MRSA On today's evaluation that is 03/07/2022 the patient denies having any fever or any chills, the patient has right gluteal area pain has decreased in intensity denies any chest pain shortness of the cough no abdominal pain no diarrhea Objective - Vital Signs Vital signs: Vital Signs Temp 98.6 F 03/07/22 04:10 Pulse 54 L 03/07/22 04:10 Resp 14 03/07/22 04:10 BP 145/51 03/07/22 04:10 Pulse Ox 97 03/07/22 04:10 FiO2 Intake & Output 03/06/22 03/07/22 03/07/22 18:59 06:59 18:59 Intake Total 2057 Balance 2057 Intake: Intake, IV Titration 1700 Amount Sodium Chloride 0.9% 1, 1200 000 ml @ 130 mls/hr IV . Q7H42M [facility] Rx#:[id number] Vancomycin 1,750 mg In 500 Sodium Chloride 0.9% 500 ml 500 ml @ 167 mls/hr IVPB Q12H [facility] Rx#: [id number] Oral 358 Other: Voiding Method Toilet # Voids 3 3 1 - Exam GENERAL DESCRIPTION: middle age female lying in bed in no distress RESPIRATORY SYSTEM: Unlabored breathing , decreased breath sounds at bases HEART: S1 S2 regular rate and rhythm , ABDOMEN: Soft , no tenderness right gluteal area did have swelling , redness and induration EXTREMITIES: No edema feet - Labs CBC & Chem 7: 03/04/22 04:25 03/08/22 07:23 Labs: Abnormal Lab Results - Last 24 Hours (Table) 03/06/22 03/06/22 03/07/22 Range/Units 17:17 20:13 07:16 POC Glucose (mg/dL) 287 H 346 H 322 H (70-110) mg/dL 03/07/22 Range/Units 11:23 POC Glucose (mg/dL) 325 H (70-110) mg/dL Microbiology - Last 24 Hours (Table) 03/03/22 14:25 Blood Culture - Preliminary Blood No Growth after 72 hours Assessment and Plan (1) Positive blood culture Status: Acute Code(s): R78.81 - BACTEREMIA SNOMED Code(s): 291680808 (2) Abscess and cellulitis of gluteal region Status: Acute Code(s): L02.31 - CUTANEOUS ABSCESS OF BUTTOCK; L03.317 - CELLULITIS OF BUTTOCK SNOMED Code(s): 994590326 Plan: 1patient present to hospital with right gluteal abscess and cellulitis likely from gram-positive skin barry and high clinic suspicion for community associated MRSA. Local culture has been finalized as MRSA 2 Positive blood culture with coagulase-negative staph likely skin contamination 3-Patient right gluteal swelling and redness has improved patient to continue with the IV vancomycin for another 24 hours before transitioning her to oral antibiotic hopefully tomorrow Time with Patient: Less than 30
--- NOTE | 2022-03-15 18:01 | P.PN ---
Subjective Progress Note Date: 03/08/22 Principal diagnosis: right gluteal abscess and cellulitis Patient is a 51 year old female presenting to the hospital with right gluteal pain and swelling redness has been diagnosed with the cellulitis concerning for possible abscess did have a positive blood culture staph epi likely contamination local culture growing MRSA On today's evaluation that is 03/08/2022 the patient remains to be afebrile, the patient is breathing comfortably no chest pain shortness of breath or cough pain or discomfort to the right gluteal area has decreased denies having any nausea no vomiting and no diarrhea with antibiotic therapy Objective - Vital Signs Vital signs: Vital Signs Temp 98.9 F 03/08/22 08:30 Pulse 61 03/08/22 08:30 Resp 18 03/08/22 08:30 BP 123/61 03/08/22 08:30 Pulse Ox 97 03/08/22 08:30 FiO2 Intake & Output 03/07/22 03/08/22 03/08/22 18:59 06:59 18:59 Intake Total 2500 Balance 2500 Intake: Intake, IV Titration 1900 Amount Sodium Chloride 0.9% 1, 1400 000 ml @ 130 mls/hr IV . Q7H42M [facility] Rx#:[id number] Vancomycin 2,000 mg In 500 Sodium Chloride 0.9% 500 ml 500 ml @ 167 mls/hr IVPB Q12H [facility] Rx#: [id number] Oral 600 Other: Voiding Method Toilet Toilet # Voids 1 3 - Exam GENERAL DESCRIPTION: middle age female lying in bed in no distress RESPIRATORY SYSTEM: Unlabored breathing , decreased breath sounds at bases HEART: S1 S2 regular rate and rhythm , ABDOMEN: Soft , no tenderness Right gluteal swelling redness and induration has decreased EXTREMITIES: No edema feet - Labs CBC & Chem 7: 03/04/22 04:25 03/08/22 07:23 Labs: Abnormal Lab Results - Last 24 Hours (Table) 03/07/22 03/07/22 03/08/22 Range/Units 17:04 20:57 07:00 POC Glucose (mg/dL) 240 H 247 H 207 H (70-110) mg/dL 03/08/22 Range/Units 11:24 POC Glucose (mg/dL) 292 H (70-110) mg/dL Microbiology - Last 24 Hours (Table) 03/03/22 14:25 Blood Culture - Preliminary Blood No Growth after 96 hours 03/03/22 15:50 Anaerobic Culture - Final Buttock Assessment and Plan (1) Positive blood culture Status: Acute Code(s): R78.81 - BACTEREMIA SNOMED Code(s): 357670132 (2) Abscess and cellulitis of gluteal region Status: Acute Code(s): L02.31 - CUTANEOUS ABSCESS OF BUTTOCK; L03.317 - CELLULITIS OF BUTTOCK SNOMED Code(s): 866684390 Plan: 1patient present to hospital with right gluteal abscess and cellulitis likely from gram-positive skin barry and high clinic suspicion for community associated MRSA. Local culture has been finalized as MRSA 2 Positive blood culture with coagulase-negative staph likely skin contamination 3-Patient has shown clinical improvement as far as right gluteal cellulitis is concerned she will finish therapy with oral doxycycline prescription was sent to the pharmacy and close outpatient follow-up Time with Patient: Less than 30
== END 2022-03-08 15:59 | disposition home or self-care (01) | DRG 603 ==
LOC: EC 12:26 → 6NMEDSUR 17:16 → 5NMEDONC 03-04 02:44 → OBSVTOIN 03-06 14:42
PROVIDERS: ADMIT Family Medicine; ATTEND Family Medicine
DX: L03.317 Cellulitis of buttock (principal); E87.20 Acidosis, unspecified; K86.1 Other chronic pancreatitis; Z68.41 Body mass index [BMI] 40.0-44.9, adult; L02.31 Cutaneous abscess of buttock; E11.65 Type 2 diabetes mellitus with hyperglycemia; E66.9 Obesity, unspecified; E78.1 Pure hyperglyceridemia; E78.5 Hyperlipidemia, unspecified; I10 Essential (primary) hypertension; Z79.4 Long term (current) use of insulin; Z79.84 Long term (current) use of oral hypoglycemic drugs; Z79.899 Other long term (current) drug therapy; Z87.891 Personal history of nicotine dependence; G89.29 Other chronic pain; K21.9 Gastro-esophageal reflux disease without esophagitis; Z87.440 Personal history of urinary (tract) infections; Z86.79 Personal history of other diseases of the circulatory system; Z28.21 Immunization not carried out because of patient refusal; Z28.311 Partially vaccinated for COVID-19; Z71.3 Dietary counseling and surveillance; Z88.1 Allergy status to other antibiotic agents
CPT/HCPCS: 36415; 80053; 80202; 81001; 81025; 82565; 83036; 83605; 85025; 87040; 87070; 87075; 87077; 87186; 87205; 96365; 96366; 96372; 96375; 99285

== ENCOUNTER 2022-04-01 07:14 | Emergency (ER) | payer MEDICARE ==
[2022-04-01] MEDS ORDERED: ONDANSETRON 4 MG/2 ML VIAL IVP STA (07:49)
[2022-04-01] MEDS ORDERED: SODIUM CHLORIDE 0.9% 1,000 ML IV ONE (07:49)
--- NOTE | 2022-04-01 07:51 | ED ---
General Adult HPI - General Chief complaint: Upper Respiratory Infection Stated complaint: Nausea Time Seen by Provider: 04/01/22 07:30 Source: patient, RN notes reviewed, old records reviewed Mode of arrival: ambulatory Limitations: no limitations - History of Present Illness Initial comments: This is a 51-year-old female who presents to the emergency department complaining of vomiting and a cough and congestion. Patient states she's been vomiting on and off for almost a week. Patient denies fever or chills per patient states she does have some body aches. Patient denies any chest pain or palpitations. Patient denies being short of breath or any difficulty breathing. Patient denies headache patient denies numbness weakness. Patient denies lightheadedness dizziness or near syncopal episode. - Related Data Home Medications Medication Instructions Recorded Confirmed Atorvastatin [Lipitor] 80 mg PO HS 06/25/19 03/03/22 lisinopriL 40 mg PO DAILY 09/24/20 03/03/22 metFORMIN HCL [Glucophage] 500 mg PO DAILY 09/24/20 03/03/22 traZODone HCL 50 - 100 mg PO HS PRN 01/11/21 03/03/22 Ergocalciferol (Vitamin D2) 1,250 mcg PO TU 03/03/21 03/03/22 [Drisdol (50,000 Iu)] Albuterol Inhaler [Ventolin Hfa 2 puff INHALATION RT-QID PRN 07/28/21 03/03/22 Inhaler] Esomeprazole Magnesium [NexIUM] 20 mg PO DAILY 01/30/22 03/03/22 Previous Rx's Medication Instructions Recorded INSULIN ASPART (NovoLOG) [NovoLOG 30 unit SQ AC-TID #10 ml 02/06/22 (formulary)] Insulin Detemir (Levemir) [Levemir] 90 unit SQ DAILY@0700 30 Days #1 02/06/22 pen Doxycycline Hyclate 100 mg PO BID 10 Days #20 tab 03/08/22 Allergies Allergy/AdvReac Type Severity Reaction Status Date / Time levofloxacin [From Levaquin] Allergy Rash/Hives Verified 04/01/22 07:29 Review of Systems ROS Statement: Those systems with pertinent positive or pertinent negative responses have been documented in the HPI. ROS Other: All systems not noted in ROS Statement are negative. Past Medical History Past Medical History: Diabetes Mellitus, GERD/Reflux, Hyperlipidemia, Hypertension, Syncope Additional Past Medical History / Comment(s): Pt recently admitted to [facility] on 07/21/21 with uncontrolled IDDM and hyperkalemia. Other hx: Recurrent pancreatitis, hypertriglyceridemia, elevated lipase, IDDM type II, UTI, chronic low back pain, bulging discs, dental abscesses in past. History of Any Multi-Drug Resistant Organisms: MRSA Date of last positivie culture/infection: 03/03/22 MDRO Source:: Right Buttock Past Surgical History: Tubal Ligation Additional Past Surgical History / Comment(s): Age 7 had VSD repair Past Anesthesia/Blood Transfusion Reactions: No Reported Reaction Past Psychological History: No Psychological Hx Reported Smoking Status: Former smoker Past Alcohol Use History: None Reported Past Drug Use History: None Reported - Past Family History Mother Family Medical History: No Reported History Additional Family Medical History / Comment(s): Mother was healthy. She is , pt cannot recall cause of . Father Family Medical History: Pneumonia Additional Family Medical History / Comment(s): Father at the age of 67yrs from pneumonia General Exam - General Exam Comments Initial Comments: GENERAL: Patient is well-developed and well-nourished. Patient is nontoxic and well- hydrated and is in no acute distress. ENT: Neck is soft and supple. No significant lymphadenopathy is noted. Oropharynx is clear. Moist mucous membranes. Neck has full range of motion without eliciting any pain. EYES: The sclera were anicteric and conjunctiva were pink and moist. Extraocular movements were intact and pupils were equal round and reactive to light. Eyelids were unremarkable. PULMONARY: Unlabored respirations. Good breath sounds bilaterally. No audible rales rhonchi or wheezing was noted. CARDIOVASCULAR: There is a regular rate and rhythm without any murmurs gallops or rubs. ABDOMEN: Soft and nontender with normal bowel sounds. SKIN: Skin is clear with no lesions or rashes and otherwise unremarkable. NEUROLOGIC: Patient is alert and oriented x3. Cranial nerves II through XII are grossly intact. Motor and sensory are also intact. Normal speech, volume and content. Symmetrical smile. MUSCULOSKELETAL: Normal extremities with adequate strength and full range of motion. LYMPHATICS: No significant lymphadenopathy is noted PSYCHIATRIC: Normal psychiatric evaluation. Limitations: no limitations Course Vital Signs 04/01/22 04/01/22 07:28 11:02 Temperature 98.1 F 97.9 F Pulse Rate 69 66 Respiratory 18 19 Rate Blood Pressure 173/80 161/88 O2 Sat by Pulse 99 95 Oximetry Medical Decision Making - Medical Decision Making EKG was interpreted by me. EKG shows sinus rhythm at 64 bpm IL interval 134 QRS is 85 QT interval 395 QTC is 44 per patient's EKG shows no ST segment elevation or depression. Was pt. sent in by a medical professional or institution? @ -None Did you speak to anyone other than the patient for history? @ -None Did you review nursing and triage notes? @ -Agreed Were old charts reviewed? @ -None Differential Diagnosis? @ -Upper respiratory infection, COVID, RSV, influenza, bronchitis, pneumonia, EKG interpreted by me (3pts min.)? @ -None X-rays interpreted by me (1pt min.)? @ -Chest x-ray showed no acute abnormality. CT interpreted by me (1pt min.)? @ -[none] U/S interpreted by me (1pt. min.)? @ -None What testing was considered but not performed? (CT, X-rays, U/S, labs)? Why? @I considered doing an RSV or COVID however patient is was in no distress and since I wouldn't treat either of those without any significant distress I did not order those. What meds were considered but not given? Why? @ -None Did you discuss the management of the patient with other professionals? @ -None Did you reconcile home meds? @ -No Was smoking cessation discussed for >3mins.? @ -No Was critical care preformed (if so, how long)? @ -No Were there social determinants of health that impacted care today? How? (Homelessness, low income, unemployed, alcoholism, drug addiction, transportation, low edu. Level, literacy, decrease access to med. care, senior living, rehab)? @ -No Was there de-escalation of care discussed even if they declined? (Discuss DNR or withdrawal of care, Hospice)? @ -None What co-morbidities impacted this encounter? (DM, HTN, Smoking, COPD, CAD, Cancer, CVA, Hep., AIDS, mental health diagnosis, sleep apnea, morbid obesity)? @ -Diabetes Was patient admitted / discharged? @ -Patient was discharged home after a long explanation of how she needs to be more compliant with her medications and her diet so that she does not coming in with hyperglycemia. Patient had no respiratory distress no cough was heard while she was here patient has a viral URI and can follow-up with her primary medical care doctor if it worsens or come back here if it worsens. Patient also was told to follow-up with her primary medical doctor for more education on her diabetes and her diabetic diet. Undiagnosed new problem with uncertain prognosis? @ -None Drug Therapy requiring intensive monitoring for toxicity (Heparin, Nitro, Insulin, Cardizem)? @ -None Were any procedures done? @ -None Diagnosis/symptom? @ -URI Acute, or Chronic, or Acute on Chronic? @ -Acute Uncomplicated (without systemic symptoms) or Complicated (systemic symptoms)? @ -Uncomplicated Side effects of treatment? @ -[none] Exacerbation, Progression, or Severe Exacerbation] @ -None Poses a threat to life or bodily function? @ -No Diagnosis/symptom? @ -Hyperglycemia Acute, or Chronic, or Acute on Chronic? @ -Acute on chronic Uncomplicated (without systemic symptoms) or Complicated (systemic symptoms)? @ -Uncomplicated Side effects of treatment? @ -None Exacerbation, Progression, or Severe Exacerbation] @ -Exacerbation Poses a threat to life or bodily function? @ -No - Lab Data Result diagrams: 04/01/22 09:49 04/01/22 09:49 Lab Results 04/01/22 04/01/22 04/01/22 Range/Units 09:49 09:49 11:45 WBC 8.3 (3.8-10.6) k/uL RBC 4.60 (3.80-5.40) m/uL Hgb 11.4 (11.4-16.0) gm/dL Hct 35.8 (34.0-46.0) % MCV 77.7 L (80.0-100.0) fL MCH 24.7 L (25.0-35.0) pg MCHC 31.7 (31.0-37.0) g/dL RDW 17.2 H (11.5-15.5) % Plt Count 464 H (150-450) k/uL MPV 7.2 Neutrophils % 66 % Lymphocytes % 24 % Monocytes % 4 % Eosinophils % 2 % Basophils % 1 % Neutrophils # 5.5 (1.3-7.7) k/uL Lymphocytes # 2.0 (1.0-4.8) k/uL Monocytes # 0.3 (0-1.0) k/uL Eosinophils # 0.2 (0-0.7) k/uL Basophils # 0.1 (0-0.2) k/uL Hypochromasia Marked Anisocytosis Slight Microcytosis Slight Sodium 131 L (137-145) mmol/L Potassium 4.3 (3.5-5.1) mmol/L Chloride 97 L (98-107) mmol/L Carbon Dioxide 25 (22-30) mmol/L Anion Gap 9 mmol/L BUN 15 (7-17) mg/dL Creatinine 0.55 (0.52-1.04) mg/dL Est GFR (CKD-EPI)AfAm >90 (>60 ml/min/1.73 sqM) Est GFR (CKD-EPI)NonAf >90 (>60 ml/min/1.73 sqM) Glucose 527 H* (74-99) mg/dL POC Glucose (mg/dL) 451 H (70-110) mg/dL POC Glu Laster Hand ID Codie Rios Calcium 8.3 L (8.4-10.2) mg/dL Total Bilirubin 0.3 (0.2-1.3) mg/dL AST 39 H (14-36) U/L ALT 31 (4-34) U/L Alkaline Phosphatase 183 H (38-126) U/L Total Protein 6.6 (6.3-8.2) g/dL Albumin 3.5 (3.5-5.0) g/dL Acetone, Qual Negative (Negative) 04/01/22 04/01/22 Range/Units 12:36 14:00 WBC (3.8-10.6) k/uL RBC (3.80-5.40) m/uL Hgb (11.4-16.0) gm/dL Hct (34.0-46.0) % MCV (80.0-100.0) fL MCH (25.0-35.0) pg MCHC (31.0-37.0) g/dL RDW (11.5-15.5) % Plt Count (150-450) k/uL MPV Neutrophils % % Lymphocytes % % Monocytes % % Eosinophils % % Basophils % % Neutrophils # (1.3-7.7) k/uL Lymphocytes # (1.0-4.8) k/uL Monocytes # (0-1.0) k/uL Eosinophils # (0-0.7) k/uL Basophils # (0-0.2) k/uL Hypochromasia Anisocytosis Microcytosis Sodium (137-145) mmol/L Potassium (3.5-5.1) mmol/L Chloride (98-107) mmol/L Carbon Dioxide (22-30) mmol/L Anion Gap mmol/L BUN (7-17) mg/dL Creatinine (0.52-1.04) mg/dL Est GFR (CKD-EPI)AfAm (>60 ml/min/1.73 sqM) Est GFR (CKD-EPI)NonAf (>60 ml/min/1.73 sqM) Glucose (74-99) mg/dL POC Glucose (mg/dL) 437 H 331 H (70-110) mg/dL POC Glu Laster Hand John Galdamez Matthew Calcium (8.4-10.2) mg/dL Total Bilirubin (0.2-1.3) mg/dL AST (14-36) U/L ALT (4-34) U/L Alkaline Phosphatase (38-126) U/L Total Protein (6.3-8.2) g/dL Albumin (3.5-5.0) g/dL Acetone, Qual (Negative) Disposition Clinical Impression: Upper respiratory tract infection, Hyperglycemia Disposition: HOME SELF-CARE Condition: Good Instructions (If sedation given, give patient instructions): Upper Respiratory Infection (ED), Diabetic Hyperglycemia (ED) Is patient prescribed a controlled substance at d/c from ED?: No Referrals: Guillermo Cerda MD [Primary Care Provider] - 1-2 days Time of Disposition: 14:18
--- NOTE | 2022-04-01 09:43 | XR ---
EXAMINATION TYPE: XR chest 2V DATE OF EXAM: 04/01/2022 COMPARISON: 01/24/2022 HISTORY: 51 year-old female shortness of breath, cough, congestion, difficulty breathing TECHNIQUE: PA and lateral views FINDINGS: The heart upper limits of normal in size. Median sternotomy wires are present. Aorta and pulmonary va sculature within normal limits. Left lateral rib fracture deformities redemonstrated from 01/24/2022. Minimal strandy atelectasis left midlung. No consolidation or pleural effusion. IMPRESSION: Borderline heart size. Previous median sternotomy. Redemonstrated left lateral rib fracture deformiti es from 01/24/2022. No acute process seen.
[2022-04-01 10:07] LABS: Anisocytosis Slight; Basophils # (A) 0.1 k/uL (0-0.2); Basophils % (A) 1 %; Eosinophils # (A) 0.2 k/uL (0-0.7); Eosinophils % (A) 2 %; HCT 35.8 % (34.0-46.0); HGB 11.4 gm/dL (11.4-16.0); Hypochromasia Marked; Lymphocytes % (A) 24 %; MCH 24.7 pg (25.0-35.0); MCHC 31.7 g/dL (31.0-37.0); MCV 77.7 fL (80.0-100.0); Mean Platelet Volume 7.2; Microcytosis Slight; Monocytes # (A) 0.3 k/uL (0-1.0); Monocytes % (A) 4 %; Neutrophils # (A) 5.5 k/uL (1.3-7.7); Neutrophils % (A) 66 %; Platelet Count 464 k/uL (150-450); RDW 17.2 % (11.5-15.5); WBC 8.3 k/uL (3.8-10.6)
[2022-04-01 10:12] LABS: ALT 31 U/L (4-34); AST 39 U/L (14-36); African American GFR (CKD) >90 (>60 ml/min/1.73 sqM); Albumin 3.5 g/dL (3.5-5.0); Alkaline Phosphatase 183 U/L (38-126); Anion Gap 9 mmol/L; Blood Urea Nitrogen 15 mg/dL (7-17); Calcium 8.3 mg/dL (8.4-10.2); Carbon Dioxide 25 mmol/L (22-30); Chloride 97 mmol/L (98-107); Non-African American GFR(CKD) >90 (>60 ml/min/1.73 sqM); Potassium 4.3 mmol/L (3.5-5.1); Sodium 131 mmol/L (137-145); Total Bilirubin 0.3 mg/dL (0.2-1.3); Total Protein 6.6 g/dL (6.3-8.2)
[2022-04-01 10:22] LABS: Glucose 527 mg/dL (74-99)
[2022-04-01] MEDS ORDERED: INSULIN ASPART (NovoLOG) 100 UNIT/ML VIAL SQ ONE (10:37)
[2022-04-01] MEDS ORDERED: INSULIN REGULAR 100 UNIT/ML VIAL (IV) IV ONE ×2 (10:37→12:46)
[2022-04-01 11:46] LABS: Glucose,Whole Blood 451 mg/dL (70-110)
[2022-04-01 12:38] LABS: Glucose,Whole Blood 437 mg/dL (70-110)
[2022-04-01 14:02] LABS: Glucose,Whole Blood 331 mg/dL (70-110)
[2022-04-01 14:37] VITALS: BP 166/93; PULSE 74; RESP 18; TEMP 98.6
== END 2022-04-01 14:38 | disposition home or self-care (01) ==
LOC: EC 07:14
DX: J06.9 Acute upper respiratory infection, unspecified (principal); E11.65 Type 2 diabetes mellitus with hyperglycemia; K21.9 Gastro-esophageal reflux disease without esophagitis; E78.5 Hyperlipidemia, unspecified; I10 Essential (primary) hypertension; Z87.891 Personal history of nicotine dependence; Z79.899 Other long term (current) drug therapy; Z88.1 Allergy status to other antibiotic agents; Z79.4 Long term (current) use of insulin; Z79.84 Long term (current) use of oral hypoglycemic drugs
CPT/HCPCS: 36415; 93005; 80053; 82009; 85025; 71046; 99284; 96374; 96361 ×6; J2405

== ENCOUNTER 2022-04-24 15:35 | Emergency (ER) | payer MEDICARE ==
[2022-04-24 16:05] VITALS: RESP 18
--- NOTE | 2022-04-24 16:14 | ED ---
General Adult HPI - General Source: patient, RN notes reviewed Mode of arrival: EMS <Pretty Meza - Last Filed: 04/24/22 16:34> <Anastasiia Ramirez - Last Filed: 04/25/22 04:00> - General Chief complaint: Nausea/Vomiting/Diarrhea Stated complaint: "doesn't feel good" Time Seen by Provider: 04/24/22 16:12 - History of Present Illness Initial comments: Patient is a 51-year-old female who presents to the emergency department for "not feeling well." Patient reports generalized abdominal pain, vomiting, diarrhea for the past 2 days. No hematemesis or blood in stool. Patient feels weak with lack of appetite. She denies fever, chills, chest pain, shortness of breath. Does admit to a dry cough. Patient also like her left gluteal region evaluated. States she has a painful sore there. (Pretty Meza) - Related Data Home Medications Medication Instructions Recorded Confirmed Atorvastatin [Lipitor] 80 mg PO HS 06/25/19 03/03/22 lisinopriL 40 mg PO DAILY 09/24/20 03/03/22 metFORMIN HCL [Glucophage] 500 mg PO DAILY 09/24/20 03/03/22 traZODone HCL 50 - 100 mg PO HS PRN 01/11/21 03/03/22 Ergocalciferol (Vitamin D2) 1,250 mcg PO TU 03/03/21 03/03/22 [Drisdol (50,000 Iu)] Albuterol Inhaler [Ventolin Hfa 2 puff INHALATION RT-QID PRN 07/28/21 03/03/22 Inhaler] Esomeprazole Magnesium [NexIUM] 20 mg PO DAILY 01/30/22 03/03/22 Previous Rx's Medication Instructions Recorded INSULIN ASPART (NovoLOG) [NovoLOG 30 unit SQ AC-TID #10 ml 02/06/22 (formulary)] Insulin Detemir (Levemir) [Levemir] 90 unit SQ DAILY@0700 30 Days #1 02/06/22 pen Doxycycline Hyclate 100 mg PO BID 10 Days #20 tab 03/08/22 Allergies Allergy/AdvReac Type Severity Reaction Status Date / Time levofloxacin [From Levaquin] Allergy Rash/Hives Verified 04/24/22 16:05 Review of Systems ROS Other: All systems not noted in ROS Statement are negative. <Pretty Meza - Last Filed: 04/24/22 16:34> ROS Other: All systems not noted in ROS Statement are negative. <Anastasiia Ramirez - Last Filed: 04/25/22 04:00> ROS Statement: Those systems with pertinent positive or pertinent negative responses have been documented in the HPI. Past Medical History Past Medical History: Diabetes Mellitus, GERD/Reflux, Hyperlipidemia, Hypertension, Syncope Additional Past Medical History / Comment(s): Pt recently admitted to [facility] on 07/21/21 with uncontrolled IDDM and hyperkalemia. Other hx: Recurrent pancreatitis, hypertriglyceridemia, elevated lipase, IDDM type II, UTI, chronic low back pain, bulging discs, dental abscesses in past. History of Any Multi-Drug Resistant Organisms: MRSA Date of last positivie culture/infection: 03/03/22 MDRO Source:: Right Buttock Past Surgical History: Tubal Ligation Additional Past Surgical History / Comment(s): Age 7 had VSD repair Past Anesthesia/Blood Transfusion Reactions: No Reported Reaction Past Psychological History: No Psychological Hx Reported Smoking Status: Former smoker Past Alcohol Use History: None Reported Past Drug Use History: None Reported - Past Family History Mother Family Medical History: No Reported History Additional Family Medical History / Comment(s): Mother was healthy. She is , pt cannot recall cause of . Father Family Medical History: Pneumonia Additional Family Medical History / Comment(s): Father at the age of 67yrs from pneumonia <Pretty Meza - Last Filed: 04/24/22 16:34> General Exam Limitations: no limitations General appearance: alert, in no apparent distress Head exam: Present: atraumatic, normocephalic, normal inspection Eye exam: Present: normal appearance Neck exam: Present: normal inspection Respiratory exam: Present: normal lung sounds bilaterally. Absent: respiratory distress, wheezes, rales, rhonchi, stridor Cardiovascular Exam: Present: regular rate, normal rhythm, normal heart sounds. Absent: systolic murmur, diastolic murmur, rubs, gallop, clicks Neurological exam: Present: alert, oriented X3, CN II-XII intact Psychiatric exam: Present: normal affect, normal mood Skin exam: Present: warm, dry, intact, normal color. Absent: rash <Anastasiia Ramirez - Last Filed: 04/25/22 04:00> Course Vital Signs 04/24/22 04/25/22 16:03 01:37 Temperature 98.8 F 97.8 F Pulse Rate 70 74 Respiratory 18 18 Rate Blood Pressure 182/81 130/72 O2 Sat by Pulse 99 98 Oximetry Medical Decision Making - Lab Data Result diagrams: 04/24/22 20:28 04/24/22 20:28 <Anastasiia Ramirez - Last Filed: 04/25/22 04:00> - Medical Decision Making Was pt. sent in by a medical professional or institution (, [facility], [facility], urgent care, hospital, or penitentiary...) When possible be specific @ -No Did you speak to anyone other than the patient for history (EMS, parent, family, police, friend...)? What history was obtained from this source @ -No Did you review nursing and triage notes (agree or disagree)? Why? @ -I reviewed and agree with nursing and triage notes Were old charts reviewed (outside hosp., previous admission, EMS record, old EKG, old radiological studies, urgent care reports/EKG's, penitentiary records)? Report findings @ -No old charts were reviewed Differential Diagnosis (chest pain, altered mental status, abdominal pain women, abdominal pain men, vaginal bleeding, weakness, fever, dyspnea, syncope, headache, dizziness, GI bleed, back pain, seizure, CVA, palpatations, mental health)? @ -Differential includes influenza, Covid, RSV, DKA, hyperglycemia, UTI, this is not meant to be in all-inclusive list EKG interpreted by me (3pts min.). @ -As above X-rays interpreted by me (1pt min.). @ -None done CT interpreted by me (1pt min.). @ -None done U/S interpreted by me (1pt. min.). @ -None done What testing was considered but not performed or refused? (CT, X-rays, U/S, labs)? Why? @ -None What meds were considered but not given or refused? Why? @ -None Did you discuss the management of the patient with other professionals (professionals i.e. , PA, STRIPER, lab, RT, psych nurse, geriatric social worker, home care manager rn, teacher, investigation officer, case management director)? Give summary @ -No Was smoking cessation discussed for >3mins.? @ -No Was critical care preformed (if so, how long)? @ -No Were there social determinants of health that impacted care today? How? (Homelessness, low income, unemployed, alcoholism, drug addiction, transportation, low edu. Level, literacy, decrease access to med. care, [facility], rehab)? @ -No Was there de-escalation of care discussed even if they declined (Discuss DNR or withdrawal of care, Hospice)? DNR status @ -No What co-morbidities impacted this encounter? (DM, HTN, Smoking, COPD, CAD, Cancer, CVA, ARF, Chemo, Hep., AIDS, mental health diagnosis, sleep apnea, morbid obesity)? @ -Diabetes, hyperlipidemia, hypertension Was patient admitted / discharged? Hospital course, mention meds given and route, prescriptions, significant lab abnormalities, going to OR and other pertinent info. @ -Patient is a 51-year-old female presenting with chief complaint of body aches and "I just don't feel right". Physical examination is unremarkable. Lab work shows glucose of 320. Urine is negative for ketones and acetone is negative. Anion gap is 12. Patient is not in DKA. Urine shows signs of contamination, will be sent for culture. Patient is negative for influenza, RSV, Covid. Patient was given Toradol and Zofran. On reassessment she reports some improvement in her symptoms. After 1 L of fluids patient's glucose was 403. She was given 6 units of IV insulin, glucose came down to 323. Patient is requesting to go home. Follow-up with PCP. Report back to ER with any new or worsening symptoms. Discussed return parameters and answered all questions. Patient conveyed verbal understanding and agreed to the plan. I discussed this case in detail with my attending Dr. Fairchild Undiagnosed new problem with uncertain prognosis? @ -No Drug Therapy requiring intensive monitoring for toxicity (Heparin, Nitro, Insulin, Cardizem)? @ -No Were any procedures done? @ -No Diagnosis/symptom? @ -Hyperglycemia Acute, or Chronic, or Acute on Chronic? @ -Acute Uncomplicated (without systemic symptoms) or Complicated (systemic symptoms)? @ -Uncomplicated Side effects of treatment? @ -No Exacerbation, Progression, or Severe Exacerbation? @ -No Poses a threat to life or bodily function? How? (Chest pain, [place], [place], pneumonia, PE, COPD, DKA, ARF, appy, cholecystitis, CVA, Diverticulitis, Homicidal, Suicidal, threat to staff... and all critical care pts) @ -No (Anastasiia Ramirez) - Lab Data Lab Results 04/24/22 04/24/22 04/24/22 Range/Units 16:06 20:28 20:28 WBC 10.2 (3.8-10.6) k/uL RBC 5.36 (3.80-5.40) m/uL Hgb 12.5 (11.4-16.0) gm/dL Hct 40.2 (34.0-46.0) % MCV 75.1 L (80.0-100.0) fL MCH 23.3 L (25.0-35.0) pg MCHC 31.0 (31.0-37.0) g/dL RDW 17.4 H (11.5-15.5) % Plt Count 532 H (150-450) k/uL MPV 7.7 Neutrophils % 61 % Lymphocytes % 30 % Monocytes % 5 % Eosinophils % 1 % Basophils % 1 % Neutrophils # 6.2 (1.3-7.7) k/uL Lymphocytes # 3.1 (1.0-4.8) k/uL Monocytes # 0.5 (0-1.0) k/uL Eosinophils # 0.1 (0-0.7) k/uL Basophils # 0.1 (0-0.2) k/uL Anisocytosis Slight Microcytosis Moderate VBG pH (7.31-7.41) VBG pCO2 (37-51) mmHg VBG HCO3 (24-28) mmol/L Sodium 133 L (137-145) mmol/L Potassium 5.1 (3.5-5.1) mmol/L Chloride 98 (98-107) mmol/L Carbon Dioxide 23 (22-30) mmol/L Anion Gap 12 mmol/L BUN 10 (7-17) mg/dL Creatinine 0.60 (0.52-1.04) mg/dL Est GFR (CKD-EPI)AfAm >90 (>60 ml/min/1.73 sqM) Est GFR (CKD-EPI)NonAf >90 (>60 ml/min/1.73 sqM) Glucose 320 H (74-99) mg/dL POC Glucose (mg/dL) (70-110) mg/dL POC Glu Dramatic Teacher ID Calcium 9.1 (8.4-10.2) mg/dL Total Bilirubin 0.8 (0.2-1.3) mg/dL AST 52 H (14-36) U/L ALT 38 H (4-34) U/L Alkaline Phosphatase 179 H (38-126) U/L Total Protein 7.9 (6.3-8.2) g/dL Albumin 4.1 (3.5-5.0) g/dL Urine Color Urine Appearance (Clear) Urine pH (5.0-8.0) Ur Specific [place] (1.001-1.035) Urine Protein (Negative) Urine Glucose (UA) (Negative) Urine Ketones (Negative) Urine Blood (Negative) Urine Nitrite (Negative) Urine Bilirubin (Negative) Urine Urobilinogen (<2.0) mg/dL Ur Leukocyte Esterase (Negative) Urine RBC (0-5) /hpf Urine WBC (0-5) /hpf Ur Squamous Epith Cells (0-4) /hpf Amorphous Sediment (None) /hpf Urine Bacteria (None) /hpf Hyaline Casts (0-2) /lpf Urine Mucus (None) /hpf Acetone, Qual Negative (Negative) Influenza Type A (PCR) Not Detected (Not Detectd) Influenza Type B (PCR) Not Detected (Not Detectd) RSV (PCR) Not Detected (Not Detectd) SARS-CoV-2 (PCR) Not Detected (Not Detectd) 04/24/22 04/24/22 04/25/22 Range/Units 20:28 20:36 00:27 WBC (3.8-10.6) k/uL RBC (3.80-5.40) m/uL Hgb (11.4-16.0) gm/dL Hct (34.0-46.0) % MCV (80.0-100.0) fL MCH (25.0-35.0) pg MCHC (31.0-37.0) g/dL RDW (11.5-15.5) % Plt Count (150-450) k/uL MPV Neutrophils % % Lymphocytes % % Monocytes % % Eosinophils % % Basophils % % Neutrophils # (1.3-7.7) k/uL Lymphocytes # (1.0-4.8) k/uL Monocytes # (0-1.0) k/uL Eosinophils # (0-0.7) k/uL Basophils # (0-0.2) k/uL Anisocytosis Microcytosis VBG pH 7.39 (7.31-7.41) VBG pCO2 43 (37-51) mmHg VBG HCO3 25 (24-28) mmol/L Sodium (137-145) mmol/L Potassium (3.5-5.1) mmol/L Chloride (98-107) mmol/L Carbon Dioxide (22-30) mmol/L Anion Gap mmol/L BUN (7-17) mg/dL Creatinine (0.52-1.04) mg/dL Est GFR (CKD-EPI)AfAm (>60 ml/min/1.73 sqM) Est GFR (CKD-EPI)NonAf (>60 ml/min/1.73 sqM) Glucose (74-99) mg/dL POC Glucose (mg/dL) 403 H (70-110) mg/dL POC Glu Dramatic Teacher ID Eliot Dockery Calcium (8.4-10.2) mg/dL Total Bilirubin (0.2-1.3) mg/dL AST (14-36) U/L ALT (4-34) U/L Alkaline Phosphatase (38-126) U/L Total Protein (6.3-8.2) g/dL Albumin (3.5-5.0) g/dL Urine Color Yellow Urine Appearance Cloudy H (Clear) Urine pH 6.0 (5.0-8.0) Ur Specific [place] 1.026 (1.001-1.035) Urine Protein 3+ H (Negative) Urine Glucose (UA) 4+ H (Negative) Urine Ketones Negative (Negative) Urine Blood Trace H (Negative) Urine Nitrite Negative (Negative) Urine Bilirubin Negative (Negative) Urine Urobilinogen <2.0 (<2.0) mg/dL Ur Leukocyte Esterase Small H (Negative) Urine RBC 5 (0-5) /hpf Urine WBC 40 H (0-5) /hpf Ur Squamous Epith Cells 24 H (0-4) /hpf Amorphous Sediment Occasional H (None) /hpf Urine Bacteria Rare H (None) /hpf Hyaline Casts 28 H (0-2) /lpf Urine Mucus Rare H (None) /hpf Acetone, Qual (Negative) Influenza Type A (PCR) (Not Detectd) Influenza Type B (PCR) (Not Detectd) RSV (PCR) (Not Detectd) SARS-CoV-2 (PCR) (Not Detectd) 04/25/22 Range/Units 01:24 WBC (3.8-10.6) k/uL RBC (3.80-5.40) m/uL Hgb (11.4-16.0) gm/dL Hct (34.0-46.0) % MCV (80.0-100.0) fL MCH (25.0-35.0) pg MCHC (31.0-37.0) g/dL RDW (11.5-15.5) % Plt Count (150-450) k/uL MPV Neutrophils % % Lymphocytes % % Monocytes % % Eosinophils % % Basophils % % Neutrophils # (1.3-7.7) k/uL Lymphocytes # (1.0-4.8) k/uL Monocytes # (0-1.0) k/uL Eosinophils # (0-0.7) k/uL Basophils # (0-0.2) k/uL Anisocytosis Microcytosis VBG pH (7.31-7.41) VBG pCO2 (37-51) mmHg VBG HCO3 (24-28) mmol/L Sodium (137-145) mmol/L Potassium (3.5-5.1) mmol/L Chloride (98-107) mmol/L Carbon Dioxide (22-30) mmol/L Anion Gap mmol/L BUN (7-17) mg/dL Creatinine (0.52-1.04) mg/dL Est GFR (CKD-EPI)AfAm (>60 ml/min/1.73 sqM) Est GFR (CKD-EPI)NonAf (>60 ml/min/1.73 sqM) Glucose (74-99) mg/dL POC Glucose (mg/dL) 323 H (70-110) mg/dL POC Glu Dramatic Teacher ID Sarkis, [place] Calcium (8.4-10.2) mg/dL Total Bilirubin (0.2-1.3) mg/dL AST (14-36) U/L ALT (4-34) U/L Alkaline Phosphatase (38-126) U/L Total Protein (6.3-8.2) g/dL Albumin (3.5-5.0) g/dL Urine Color Urine Appearance (Clear) Urine pH (5.0-8.0) Ur Specific [place] (1.001-1.035) Urine Protein (Negative) Urine Glucose (UA) (Negative) Urine Ketones (Negative) Urine Blood (Negative) Urine Nitrite (Negative) Urine Bilirubin (Negative) Urine Urobilinogen (<2.0) mg/dL Ur Leukocyte Esterase (Negative) Urine RBC (0-5) /hpf Urine WBC (0-5) /hpf Ur Squamous Epith Cells (0-4) /hpf Amorphous Sediment (None) /hpf Urine Bacteria (None) /hpf Hyaline Casts (0-2) /lpf Urine Mucus (None) /hpf Acetone, Qual (Negative) Influenza Type A (PCR) (Not Detectd) Influenza Type B (PCR) (Not Detectd) RSV (PCR) (Not Detectd) SARS-CoV-2 (PCR) (Not Detectd) Disposition <Pretty Meza - Last Filed: 04/24/22 16:34> Is patient prescribed a controlled substance at d/c from ED?: No <Anastasiia Ramirez - Last Filed: 04/25/22 04:00> Clinical Impression: Hyperglycemia Disposition: HOME SELF-CARE Condition: Good Instructions (If sedation given, give patient instructions): Acute Nausea and Vomiting (ED), Diabetic Hyperglycemia (ED) Additional Instructions: Follow-up with PCP. Report back to ER with any new or worsening symptoms. Referrals: Guillermo Cerda MD [Primary Care Provider] - 1-2 days
[2022-04-24 20:58] LABS: Anisocytosis Slight; Basophils # (A) 0.1 k/uL (0-0.2); Basophils % (A) 1 %; Eosinophils # (A) 0.1 k/uL (0-0.7); Eosinophils % (A) 1 %; HCT 40.2 % (34.0-46.0); HGB 12.5 gm/dL (11.4-16.0); Lymphocytes # (A) 3.1 k/uL (1.0-4.8); Lymphocytes % (A) 30 %; MCH 23.3 pg (25.0-35.0); MCV 75.1 fL (80.0-100.0); Mean Platelet Volume 7.7; Microcytosis Moderate; Monocytes # (A) 0.5 k/uL (0-1.0); Monocytes % (A) 5 %; Neutrophils # (A) 6.2 k/uL (1.3-7.7); Neutrophils % (A) 61 %; Platelet Count 532 k/uL (150-450); RBC 5.36 m/uL (3.80-5.40); RDW 17.4 % (11.5-15.5); WBC 10.2 k/uL (3.8-10.6)
[2022-04-24 21:16] LABS: VBG PH 7.39 (7.31-7.41)
[2022-04-24 21:18] LABS: ALT 38 U/L (4-34); AST 52 U/L (14-36); African American GFR (CKD) >90 (>60 ml/min/1.73 sqM); Albumin 4.1 g/dL (3.5-5.0); Alkaline Phosphatase 179 U/L (38-126); Anion Gap 12 mmol/L; Blood Urea Nitrogen 10 mg/dL (7-17); Calcium 9.1 mg/dL (8.4-10.2); Carbon Dioxide 23 mmol/L (22-30); Chloride 98 mmol/L (98-107); Glucose 320 mg/dL (74-99); Non-African American GFR(CKD) >90 (>60 ml/min/1.73 sqM); Sodium 133 mmol/L (137-145); Total Bilirubin 0.8 mg/dL (0.2-1.3); Total Protein 7.9 g/dL (6.3-8.2)
[2022-04-24] MEDS ORDERED: KETOROLAC 15 MG/ML 1 ML VIAL IVP STA (21:29)
[2022-04-24] MEDS ORDERED: ONDANSETRON 4 MG/2 ML VIAL IVP STA (21:29)
[2022-04-24 21:31] LABS: Amorphous Sediment,Urine Occasional /hpf; Appearance,Urine Cloudy (Clear); Bacteria,Urine Rare /hpf; Bilirubin,Urine Negative (Negative); Blood,Urine Trace (Negative); Color,Urine Yellow; Glucose,Urine (UA) 4+ (Negative); Hyaline Casts,Urine 28 /lpf (0-2); Ketones,Urine Negative (Negative); Leukocyte Esterase,Urine Small (Negative); Mucus,Urine Rare /hpf; Nitrite,Urine Negative (Negative); Protein,Urine 3+ (Negative); RBC,Urine 5 /hpf (0-5); Specific Gravity,Urine 1.026 (1.001-1.035); Squamous Epithelial Cell,Urine 24 /hpf (0-4); Urobilinogen,Urine <2.0 mg/dL (<2.0); WBC,Urine 40 /hpf (0-5)
[2022-04-24 21:39] LABS: Potassium 5.1 mmol/L (3.5-5.1)
[2022-04-24] MEDS ORDERED: SODIUM CHLORIDE 0.9% 1,000 ML IV ONE (22:19)
[2022-04-25] MEDS ORDERED: INSULIN REGULAR 100 UNIT/ML VIAL (IV) IV ONE (00:29)
[2022-04-25 00:30] LABS: Glucose,Whole Blood 403 mg/dL (70-110)
[2022-04-25 01:26] LABS: Glucose,Whole Blood 323 mg/dL (70-110)
[2022-04-25 01:38] VITALS: BP 130/72; PULSE 74; TEMP 97.8
== END 2022-04-25 01:37 | disposition home or self-care (01) ==
LOC: EC 15:35
DX: E11.65 Type 2 diabetes mellitus with hyperglycemia (principal); K21.9 Gastro-esophageal reflux disease without esophagitis; E78.5 Hyperlipidemia, unspecified; I10 Essential (primary) hypertension; Z87.891 Personal history of nicotine dependence; Z88.1 Allergy status to other antibiotic agents; Z79.899 Other long term (current) drug therapy; Z79.84 Long term (current) use of oral hypoglycemic drugs; Z20.822 Contact with and (suspected) exposure to COVID-19
CPT/HCPCS: 36415 ×2; 80053; 82803; 82009; 85025; 81001; 87086; 87636; 99284; 96374; 96375; 96361 ×3; J2405; J1885

== ENCOUNTER 2022-04-28 22:33 | Emergency (ER) | payer MEDICARE ==
[2022-04-28 22:41] VITALS: RESP 16; TEMP 98.3
[2022-04-28] MEDS ORDERED: LIDOCAINE 1% INJ 10MG/ML (30 ML VIAL-PF) SQ ONE (22:48)
[2022-04-28] MEDS ORDERED: MORPHINE SULFATE 2 MG/ML SYRINGE IVP STA (22:48)
--- NOTE | 2022-04-28 23:39 | ED ---
Skin/Abscess/FB HPI - General Chief complaint: Skin/Abscess/Foreign Body Stated complaint: Ulcer Time Seen by Provider: 04/28/22 22:38 Source: patient, RN notes reviewed Mode of arrival: EMS Limitations: no limitations - History of Present Illness Initial comments: This is a 51-year-old female who presents to the emergency department for an abscess to the left buttocks. This started 2-3 days ago. She has had these before, but states that they often pop on their own and resolve with antibiotics. States that she is unable to take the pain. Denies any fevers or chills. Additionally, she reports a cough and feeling generally unwell for the last 2 days as well. The cough is productive with white sputum. She did come via EMS, who states that her sugar was over 500. She is an insulin-dependent diabetic and states that her sugar often runs closer to 150. Denies any fevers, chills, sore throat, dyspnea, chest pain, palpitations, abd ominal pain, nausea, vomiting, diarrhea, back pain, or headaches. MD complaint: abscess/boil Onset/Timin -: days(s) Tetanus Up to Date: yes - Related Data Home Medications Medication Instructions Recorded Confirmed Atorvastatin [Lipitor] 80 mg PO HS 06/25/19 03/03/22 lisinopriL 40 mg PO DAILY 09/24/20 03/03/22 metFORMIN HCL [Glucophage] 500 mg PO DAILY 09/24/20 03/03/22 traZODone HCL 50 - 100 mg PO HS PRN 01/11/21 03/03/22 Ergocalciferol (Vitamin D2) 1,250 mcg PO TU 03/03/21 03/03/22 [Drisdol (50,000 Iu)] Albuterol Inhaler [Ventolin Hfa 2 puff INHALATION RT-QID PRN 07/28/21 03/03/22 Inhaler] Esomeprazole Magnesium [NexIUM] 20 mg PO DAILY 01/30/22 03/03/22 Previous Rx's Medication Instructions Recorded INSULIN ASPART (NovoLOG) [NovoLOG 30 unit SQ AC-TID #10 ml 02/06/22 (formulary)] Insulin Detemir (Levemir) [Levemir] 90 unit SQ DAILY@0700 30 Days #1 02/06/22 pen Doxycycline Hyclate 100 mg PO BID 10 Days #20 tab 03/08/22 Sulfamethox-Tmp 800-160Mg [Bactrim 1 tab PO Q12HR 10 Days #20 tab 04/29/22 DS 800-160 mg] Allergies Allergy/AdvReac Type Severity Reaction Status Date / Time levofloxacin [From Levaquin] Allergy Rash/Hives Verified 04/24/22 16:05 Review of Systems ROS Statement: Those systems with pertinent positive or pertinent negative responses have been documented in the HPI. ROS Other: All systems not noted in ROS Statement are negative. Past Medical History Past Medical History: Diabetes Mellitus, GERD/Reflux, Hyperlipidemia, Hypertension, Syncope Additional Past Medical History / Comment(s): Pt recently admitted to [facility] on 07/21/21 with uncontrolled IDDM and hyperkalemia. Other hx: Recurrent pancreatitis, hypertriglyceridemia, elevated lipase, IDDM type II, UTI, chronic low back pain, bulging discs, dental abscesses in past. History of Any Multi-Drug Resistant Organisms: MRSA Date of last positivie culture/infection: 03/03/22 MDRO Source:: Right Buttock Past Surgical History: Tubal Ligation Additional Past Surgical History / Comment(s): Age 7 had VSD repair Past Anesthesia/Blood Transfusion Reactions: No Reported Reaction Past Psychological History: No Psychological Hx Reported Smoking Status: Former smoker Past Alcohol Use History: None Reported Past Drug Use History: None Reported - Past Family History Mother Family Medical History: No Reported History Additional Family Medical History / Comment(s): Mother was healthy. She is , pt cannot recall cause of . Father Family Medical History: Pneumonia Additional Family Medical History / Comment(s): Father at the age of 67yrs from pneumonia General Exam Limitations: no limitations General appearance: alert, in no apparent distress Head exam: Present: atraumatic, normocephalic, normal inspection Respiratory exam: Present: normal lung sounds bilaterally. Absent: respiratory distress, wheezes, rales, rhonchi, stridor Cardiovascular Exam: Present: regular rate, normal rhythm, normal heart sounds. Absent: systolic murmur, diastolic murmur, rubs, gallop, clicks Neurological exam: Present: alert, oriented X3, CN II-XII intact Psychiatric exam: Present: normal affect, normal mood Skin exam: Present: other (3 cm abscess to the left buttocks with surrounding erythema and induration. There is a punctate area in the center. No active drainage.) Course Vital Signs 04/28/22 04/28/22 04/28/22 22:36 22:52 23:00 Temperature 98.3 F Pulse Rate 71 78 76 Respiratory 16 16 16 Rate Blood Pressure 165/86 165/86 165/86 O2 Sat by Pulse 96 96 Oximetry 04/29/22 04/29/22 04/29/22 00:00 00:06 02:21 Temperature Pulse Rate 78 78 78 Respiratory 16 16 16 Rate Blood Pressure 153/91 153/84 148/82 O2 Sat by Pulse 96 95 99 Oximetry Procedures - Incision & Drainage Consent Obtained: verbal consent Indication: abscess Site: buttock Size (cm): 3 Anesthetic Used: lidocaine 1% Amount (mLs): 3 I&D Cleaning Method: Alcohol Wipe Sterile Field Used?: Yes Scalpel Used: #11 Needle Aspiration Performed?: No Irrigation Performed?: No I&D Drainage Obtained: Pus, Blood Culture Obtained?: Yes Medical Decision Making - Medical Decision Making This is a 51-year-old female who presents to the emergency department for an abscess to the left buttocks and a cough. Was pt. sent in by a medical professional or institution? @ -No Did you speak to anyone other than the patient for history? @ -EMS Did you review nursing and triage notes? @ -Yes, and I agree, it is accurate with regards to the patient's symptoms. Were old charts reviewed? @ -Yes, review of prior lab work, specifically her glucose levels. Most recently on 04/24. Differential Diagnosis? @ -Differential Cough: -Influenza, Covid, RSV, croup, allergic rhinitis, GERD, pneumonia, bronchitis, COPD, viral pharyngitis, streptococcal pharyngitis, this is not meant to be an all-inclusive list. -Differential Abscess: -Cellulitis, abscess, carbuncle, epidermoid cyst, furuncle, this is not meant to be an all-inclusive list. X-rays interpreted by me (1pt min.)? @ -Chest x-ray obtained, my interpretation identifies no localized consolidations or infiltrates. What testing was considered but not performed? (CT, X-rays, U/S, labs)? Why? @ -None What meds were considered but not given? Why? @ -None Did you discuss the management of the patient with other professionals? @ -No Did you reconcile home meds? @ -No Was smoking cessation discussed for >3mins.? @ -No Was critical care preformed (if so, how long)? @ -No Were there social determinants of health that impacted care today? How? (Homelessness, low income, unemployed, alcoholism, drug addiction, transportation, low edu. Level, literacy, decrease access to med. care, [facility], rehab)? @ -No Was there de-escalation of care discussed even if they declined? (Discuss DNR or withdrawal of care, Hospice)? @ -No What co-morbidities impacted this encounter? (DM, HTN, Smoking, COPD, CAD, Cancer, CVA, Hep., AIDS, mental health diagnosis, sleep apnea, morbid obesity)? @ -DM, HTN, HLD, morbid obesity, hx of pressure sores. Was patient admitted / discharged? @ -Discharged. I&D was performed on the abscess revealing a significant amount of purulent drainage. While a significant amount of purulent drainage was expressed, the patient would not tolerate complete drainage of the abscess due to the pain. Advised she continue to apply warm compresses to encourage additional drainage at home. Aerobic and anaerobic wound cultures were obtained. She was given a dose of Bactrim in the emergency department with blood cultures obtained prior. Lab work reveals an elevated glucose of 589. She subsequently given 8 units of IV insulin, reducing her sugar to 292. Acetone was negative. While the patient states that her blood sugar is usually around 150, review of labs indicate that it is often much higher, often between 300-600. Chest x-ray reveals no acute findings related to the coughing. Patient declines a COVID or influenza swab due to the symptoms not being particularly severe. Undiagnosed new problem with uncertain prognosis? @ -None Drug Therapy requiring intensive monitoring for toxicity (Heparin, Nitro, Insulin, Cardizem)? @ -None Were any procedures done? @ -Yes, I&D on the abscess Diagnosis/symptom? @ -Abscess Acute, or Chronic, or Acute on Chronic? @ -Acute Uncomplicated (without systemic symptoms) or Complicated (systemic symptoms)? @ -Uncomplicated Side effects of treatment? @ -None Exacerbation, Progression, or Severe Exacerbation] @ -Not applicable Poses a threat to life or bodily function? @ -The pain is having an impact on her function. Diagnosis/symptom? @ -Hyperglycemia Acute, or Chronic, or Acute on Chronic? @ -Acute Uncomplicated (without systemic symptoms) or Complicated (systemic symptoms)? @ -Uncomplicated Side effects of treatment? @ -None Exacerbation, Progression, or Severe Exacerbation] @ -Exacerbation Poses a threat to life or bodily function? @ -This can become a life threatening issue if she goes into DKA. Return precautions reviewed in depth, the patient is instructed to return to the emergency department with any new, worsening, or concerning symptoms. Patient verbalized understanding. This case was discussed in detail with the attending ED physician, Dr. Huynh. Presentation, findings, and treatment plan discussed in detail as well. - Lab Data Result diagrams: 04/28/22 22:52 04/28/22 22:52 Lab Results 04/28/22 04/28/22 04/29/22 Range/Units 22:52 22:52 01:52 WBC 11.7 H (3.8-10.6) k/uL RBC 4.87 (3.80-5.40) m/uL Hgb 11.5 (11.4-16.0) gm/dL Hct 36.9 (34.0-46.0) % MCV 75.8 L (80.0-100.0) fL MCH 23.6 L (25.0-35.0) pg MCHC 31.2 (31.0-37.0) g/dL RDW 17.5 H (11.5-15.5) % Plt Count 466 H (150-450) k/uL MPV 7.3 Neutrophils % 71 % Lymphocytes % 19 % Monocytes % 6 % Eosinophils % 1 % Basophils % 1 % Neutrophils # 8.4 H (1.3-7.7) k/uL Lymphocytes # 2.3 (1.0-4.8) k/uL Monocytes # 0.7 (0-1.0) k/uL Eosinophils # 0.1 (0-0.7) k/uL Basophils # 0.1 (0-0.2) k/uL Hypochromasia Slight Anisocytosis Slight Microcytosis Slight Sodium 129 L (137-145) mmol/L Potassium 4.1 (3.5-5.1) mmol/L Chloride 94 L (98-107) mmol/L Carbon Dioxide 24 (22-30) mmol/L Anion Gap 11 mmol/L BUN 9 (7-17) mg/dL Creatinine 0.55 (0.52-1.04) mg/dL Est GFR (CKD-EPI)AfAm >90 (>60 ml/min/1.73 sqM) Est GFR (CKD-EPI)NonAf >90 (>60 ml/min/1.73 sqM) Glucose 589 H* (74-99) mg/dL POC Glucose (mg/dL) 292 H (70-110) mg/dL POC Glu [employer] Calcium 8.3 L (8.4-10.2) mg/dL Phosphorus 4.1 (2.5-4.5) mg/dL Magnesium 1.2 L (1.6-2.3) mg/dL Total Bilirubin 0.3 (0.2-1.3) mg/dL AST 25 (14-36) U/L ALT 27 (4-34) U/L Alkaline Phosphatase 180 H (38-126) U/L Total Protein 6.3 (6.3-8.2) g/dL Albumin 3.4 L (3.5-5.0) g/dL Acetone, Qual Negative (Negative) - Radiology Data Radiology results: report reviewed, image reviewed Disposition Clinical Impression: Abscess of buttock, left, Hyperglycemia Disposition: HOME SELF-CARE Instructions (If sedation given, give patient instructions): Abscess Incision and Drainage (ED), Abscess (ED) Additional Instructions: Return to the emergency department with any new, worsening, or concerning symptoms. Take the antibiotic twice daily for 10 days. Continue to apply warm compresses to encourage additional drainage. Follow up with your primary care provider in 1-2 days. Prescriptions: Sulfamethox-Tmp 800-160Mg [Bactrim DS 800-160 mg] 1 tab PO Q12HR 10 Days #20 tab Is patient prescribed a controlled substance at d/c from ED?: No Referrals: Guillermo Cerda MD [Primary Care Provider] - 1-2 days
[2022-04-29 00:02] LABS: Anisocytosis Slight; Basophils # (A) 0.1 k/uL (0-0.2); Basophils % (A) 1 %; Eosinophils # (A) 0.1 k/uL (0-0.7); Eosinophils % (A) 1 %; HCT 36.9 % (34.0-46.0); HGB 11.5 gm/dL (11.4-16.0); Hypochromasia Slight; Lymphocytes # (A) 2.3 k/uL (1.0-4.8); Lymphocytes % (A) 19 %; MCH 23.6 pg (25.0-35.0); MCHC 31.2 g/dL (31.0-37.0); MCV 75.8 fL (80.0-100.0); Mean Platelet Volume 7.3; Microcytosis Slight; Monocytes # (A) 0.7 k/uL (0-1.0); Monocytes % (A) 6 %; Neutrophils # (A) 8.4 k/uL (1.3-7.7); Neutrophils % (A) 71 %; Platelet Count 466 k/uL (150-450); RBC 4.87 m/uL (3.80-5.40); RDW 17.5 % (11.5-15.5); WBC 11.7 k/uL (3.8-10.6)
[2022-04-29 00:05] LABS: ALT 27 U/L (4-34); AST 25 U/L (14-36); African American GFR (CKD) >90 (>60 ml/min/1.73 sqM); Albumin 3.4 g/dL (3.5-5.0); Alkaline Phosphatase 180 U/L (38-126); Anion Gap 11 mmol/L; Blood Urea Nitrogen 9 mg/dL (7-17); Calcium 8.3 mg/dL (8.4-10.2); Carbon Dioxide 24 mmol/L (22-30); Chloride 94 mmol/L (98-107); Magnesium 1.2 mg/dL (1.6-2.3); Non-African American GFR(CKD) >90 (>60 ml/min/1.73 sqM); Phosphorus 4.1 mg/dL (2.5-4.5); Potassium 4.1 mmol/L (3.5-5.1); Sodium 129 mmol/L (137-145); Total Bilirubin 0.3 mg/dL (0.2-1.3); Total Protein 6.3 g/dL (6.3-8.2)
[2022-04-29 00:06] VITALS: PULSE 78
--- NOTE | 2022-04-29 00:17 | XR ---
EXAMINATION TYPE: XR chest 2V DATE OF EXAM: 04/28/2022 COMPARISON: 04/01/2022 HISTORY: Pain TECHNIQUE: 2 views FINDINGS: Heart is normal. Lungs are clear of infiltrate. No heart failure. There are no hilar masses . There are sternal wires. Bony thorax is intact IMPRESSION: No active cardiopulmonary disease. No adverse change.
[2022-04-29 00:20] LABS: Glucose 589 mg/dL (74-99)
[2022-04-29] MEDS ORDERED: INSULIN REGULAR 100 UNIT/ML VIAL (IV) IV ONE (00:31)
[2022-04-29] MEDS ORDERED: SULFAMETHOX-TMP 800-160MG 1 EACH TAB PO STA (00:31)
[2022-04-29] MEDS ORDERED: SULFAMETH-TMP DS STARTER PACK 2 TAB BTL PO STA (01:15)
[2022-04-29 01:54] LABS: Glucose,Whole Blood 292 mg/dL (70-110)
[2022-04-29 02:22] VITALS: BP 148/82
== END 2022-04-29 02:23 | disposition home or self-care (01) ==
LOC: EC 22:33
DX: L02.31 Cutaneous abscess of buttock (principal); E11.65 Type 2 diabetes mellitus with hyperglycemia; K21.9 Gastro-esophageal reflux disease without esophagitis; E78.5 Hyperlipidemia, unspecified; I10 Essential (primary) hypertension; Z87.891 Personal history of nicotine dependence; Z88.1 Allergy status to other antibiotic agents; Z79.4 Long term (current) use of insulin; Z79.899 Other long term (current) drug therapy
CPT/HCPCS: 99284 ×2; 96374 ×2; 10060 ×2; 36415 ×2; 80053; 82009; 83735; 84100; 85025; 87040; 87070; 87205; 87075; 71046; J2001; J2270; 87077; 87186

== ENCOUNTER 2022-06-20 10:47 | Emergency (ER) | payer MEDICARE ==
[2022-06-20] MEDS ORDERED: ONDANSETRON 4 MG/2 ML VIAL IVP STA (11:01)
[2022-06-20] MEDS ORDERED: FAMOTIDINE 20 MG/2 ML VIAL IV STA (11:01)
[2022-06-20] MEDS ORDERED: SODIUM CHLORIDE 0.9% 1,000 ML IV ONE ×2 (11:01→12:33)
[2022-06-20] MEDS ORDERED: KETOROLAC 15 MG/ML 1 ML VIAL IVP STA (11:01)
--- NOTE | 2022-06-20 11:18 | ED ---
General Adult HPI - General Stated complaint: vomiting Time Seen by Provider: 06/20/22 10:56 Source: EMS, RN notes reviewed Mode of arrival: EMS Limitations: no limitations - History of Present Illness Initial comments: This is a 51-year-old female significant past medical history presents the emergency department via EMS for vomiting. Patient reports that she had 2 episodes of vomiting. The first thing pint. She reports she vomited this morning. She is complaining of some mild epigastric pain. She denies any recent known sick contacts. She did receive her Covid and vaccination however she did not receive her influenza vaccination. She has not taken anything for his symptoms. She denies any fever, chills, congestion, chest pain, shortness of breath, melena, hematochezia. - Related Data Home Medications Medication Instructions Recorded Confirmed Atorvastatin [Lipitor] 80 mg PO HS 06/25/19 03/03/22 lisinopriL 40 mg PO DAILY 09/24/20 03/03/22 metFORMIN HCL [Glucophage] 500 mg PO DAILY 09/24/20 03/03/22 traZODone HCL 50 - 100 mg PO HS PRN 01/11/21 03/03/22 Ergocalciferol (Vitamin D2) 1,250 mcg PO TU 03/03/21 03/03/22 [Drisdol (50,000 Iu)] Albuterol Inhaler [Ventolin Hfa 2 puff INHALATION RT-QID PRN 07/28/21 03/03/22 Inhaler] Esomeprazole Magnesium [NexIUM] 20 mg PO DAILY 01/30/22 03/03/22 Previous Rx's Medication Instructions Recorded INSULIN ASPART (NovoLOG) [NovoLOG 30 unit SQ AC-TID #10 ml 02/06/22 (formulary)] Insulin Detemir (Levemir) [Levemir] 90 unit SQ DAILY@0700 30 Days #1 02/06/22 pen Doxycycline Hyclate 100 mg PO BID 10 Days #20 tab 03/08/22 Sulfamethox-Tmp 800-160Mg [Bactrim 1 tab PO Q12HR 10 Days #20 tab 04/29/22 DS 800-160 mg] Allergies Allergy/AdvReac Type Severity Reaction Status Date / Time levofloxacin [From Levaquin] Allergy Rash/Hives Verified 06/20/22 11:07 Review of Systems ROS Statement: Those systems with pertinent positive or pertinent negative responses have been documented in the HPI. ROS Other: All systems not noted in ROS Statement are negative. Past Medical History Past Medical History: Diabetes Mellitus, GERD/Reflux, Hyperlipidemia, Hypertension, Syncope Additional Past Medical History / Comment(s): Pt recently admitted to [facility] on 07/21/21 with uncontrolled IDDM and hyperkalemia. Other hx: Recurrent pancreatitis, hypertriglyceridemia, elevated lipase, IDDM type II, UTI, chronic low back pain, bulging discs, dental abscesses in past. History of Any Multi-Drug Resistant Organisms: MRSA Date of last positivie culture/infection: 03/03/22 MDRO Source:: Right Buttock Past Surgical History: Tubal Ligation Additional Past Surgical History / Comment(s): Age 7 had VSD repair Past Anesthesia/Blood Transfusion Reactions: No Reported Reaction Past Psychological History: No Psychological Hx Reported Smoking Status: Former smoker Past Alcohol Use History: None Reported Past Drug Use History: None Reported - Past Family History Mother Family Medical History: No Reported History Additional Family Medical History / Comment(s): Mother was healthy. She is , pt cannot recall cause of . Father Family Medical History: Pneumonia Additional Family Medical History / Comment(s): Father at the age of 67yrs from pneumonia General Exam Limitations: no limitations General appearance: alert, in no apparent distress Head exam: Present: atraumatic, normocephalic, normal inspection Eye exam: Present: normal appearance, PERRL, EOMI. Absent: scleral icterus, conjunctival injection, periorbital swelling ENT exam: Present: normal exam, mucous membranes moist Neck exam: Present: normal inspection. Absent: tenderness, meningismus, lymphadenopathy Respiratory exam: Present: normal lung sounds bilaterally. Absent: respiratory distress, wheezes, rales, rhonchi, stridor Cardiovascular Exam: Present: regular rate, normal rhythm, normal heart sounds. Absent: systolic murmur, diastolic murmur, rubs, gallop, clicks GI/Abdominal exam: Present: soft, normal bowel sounds. Absent: distended, tenderness, guarding, rebound, rigid Extremities exam: Present: normal inspection, full ROM, normal capillary refill. Absent: tenderness, pedal edema, joint swelling, calf tenderness Back exam: Present: normal inspection Neurological exam: Present: alert, oriented X3, CN II-XII intact Psychiatric exam: Present: normal affect, normal mood Skin exam: Present: warm, dry, intact, normal color. Absent: rash Course Vital Signs 06/20/22 06/20/22 06/20/22 11:04 13:05 15:08 Temperature 98.9 F 99.2 F Pulse Rate 84 66 67 Respiratory 18 16 17 Rate Blood Pressure 154/105 150/79 164/82 O2 Sat by Pulse 97 97 97 Oximetry 06/20/22 16:06 Temperature Pulse Rate 67 Respiratory 18 Rate Blood Pressure 164/82 O2 Sat by Pulse 98 Oximetry - Reevaluation(s) Reevaluation #1: 06/20/22 12:55 @On patient and her heart rate regular medications. EKG Findings - EKG Comments: EKG Findings:: I interpreted the following: EKG performed at 77bpm. LA 121,, QRS 86, QT/Qtc 365/397 Medical Decision Making - Medical Decision Making Was pt. sent in by a medical professional or institution (, PA, MANAGER MASSAGE DEPARTMENT, urgent care, hospital, or alf...) When possible be specific @ -[No] Did you speak to anyone other than the patient for history (EMS, parent, family, police, friend...)? What history was obtained from this source @ -[No] Did you review nursing and triage notes (agree or disagree)? Why? @ -[I reviewed and agree with nursing and triage notes] Were old charts reviewed (outside hosp., previous admission, EMS record, old EKG, old radiological studies, urgent care reports/EKG's, alf records)? Report findings @ -[No old charts were reviewed] Differential Diagnosis (chest pain, altered mental status, abdominal pain women, abdominal pain men, vaginal bleeding, weakness, fever, dyspnea, syncope, headache, dizziness, GI bleed, back pain, seizure, CVA, palpatations, mental health, musculoskeletal)? @ -[not applicable] EKG interpreted by me (3pts min.). @ -[As above] X-rays interpreted by me (1pt min.). @ -[None done] CT interpreted by me (1pt min.). @ -[None done] U/S interpreted by me (1pt. min.). @ -[None done] What testing was considered but not performed or refused? (CT, X-rays, U/S, labs)? Why? @ -[None] What meds were considered but not given or refused? Why? @ -[None] Did you discuss the management of the patient with other professionals (professionals i.e. , PA, MANAGER MASSAGE DEPARTMENT, lab, RT, psych nurse, forensic social worker, manager office, teacher, community service officer coordinator, skilled nursing case manager)? Give summary @ -[No] Was smoking cessation discussed for >3mins.? @ -[No] Was critical care preformed (if so, how long)? @ -[No] Were there social determinants of health that impacted care today? How? (Homelessness, low income, unemployed, alcoholism, drug addiction, transportation, low edu. Level, literacy, decrease access to med. care, [facility], rehab)? @ -[No] Was there de-escalation of care discussed even if they declined (Discuss DNR or withdrawal of care, Hospice)? DNR status @ -[No] What co-morbidities impacted this encounter? (DM, HTN, Smoking, COPD, CAD, Cancer, CVA, ARF, Chemo, Hep., AIDS, mental health diagnosis, sleep apnea, morbid obesity)? @ -[None] Was patient admitted / discharged? Hospital course, mention meds given and route, prescriptions, significant lab abnormalities, going to OR and other pertinent info. @ Discharge. This is a 51-year-old female presents to the emergency department with a chief complaint of vomiting. Patient had a thorough history and physical performed on the ED. Physical exam is essentially unremarkable, heart rate regular rate and rhythm, lungs clear to auscultation bilaterally, abdomen is soft with mild epigastric tenderness. Patient had a thorough workup performed which was essentially unremarkable.. Her glucose was reported at 550. She was given 6 units of insulin and 2 L of IV fluids. With symptomatic relief. Patient's blood sugar was approximately 280 upon the time of discharge. I discussed the results in detail with the patient who agrees with plan of care she was discharged in stable condition she was encouraged to follow up with her primary care doctor in 1-2 days. Undiagnosed new problem with uncertain prognosis? @ -[No] Drug Therapy requiring intensive monitoring for toxicity (Heparin, Nitro, Insulin, Cardizem)? @ -[No] Were any procedures done? @ -[No] Diagnosis/symptom? @ -vomiting - hyperglycemia Acute, or Chronic, or Acute on Chronic? @ -acute Uncomplicated (without systemic symptoms) or Complicated (systemic symptoms)? @ -uncomplicated Side effects of treatment? @ -[No] Exacerbation, Progression, or Severe Exacerbation? @ -[No] Poses a threat to life or bodily function? How? (Chest pain, USA, NC, pneumonia, PE, COPD, DKA, ARF, appy, cholecystitis, CVA, Diverticulitis, Homicidal, Suicidal, threat to staff... and all critical care pts) @ -low likelihood - Lab Data Result diagrams: 06/20/22 11:33 06/20/22 11:33 Lab Results 06/20/22 06/20/22 06/20/22 Range/Units 11:33 11:33 11:33 WBC 8.6 (3.8-10.6) k/uL RBC 5.22 (3.80-5.40) m/uL Hgb 13.0 (11.4-16.0) gm/dL Hct 41.2 (34.0-46.0) % MCV 78.9 L (80.0-100.0) fL MCH 24.8 L (25.0-35.0) pg MCHC 31.5 (31.0-37.0) g/dL RDW 18.5 H (11.5-15.5) % Plt Count 393 (150-450) k/uL MPV 6.9 Neutrophils % 81 % Lymphocytes % 13 % Monocytes % 4 % Eosinophils % 1 % Basophils % 0 % Neutrophils # 7.0 (1.3-7.7) k/uL Lymphocytes # 1.1 (1.0-4.8) k/uL Monocytes # 0.4 (0-1.0) k/uL Eosinophils # 0.1 (0-0.7) k/uL Basophils # 0.0 (0-0.2) k/uL Hypochromasia Slight Anisocytosis Slight Microcytosis Slight Sodium 128 L (137-145) mmol/L Potassium 3.9 (3.5-5.1) mmol/L Chloride 94 L (98-107) mmol/L Carbon Dioxide 20 L (22-30) mmol/L Anion Gap 14 mmol/L BUN 16 (7-17) mg/dL Creatinine 0.60 (0.52-1.04) mg/dL Est GFR (CKD-EPI)AfAm >90 (>60 ml/min/1.73 sqM) Est GFR (CKD-EPI)NonAf >90 (>60 ml/min/1.73 sqM) Glucose 550 H* (74-99) mg/dL POC Glucose (mg/dL) (70-110) mg/dL POC Glu Ceiling Insulation Blower ID Calcium 8.7 (8.4-10.2) mg/dL Total Bilirubin 0.6 (0.2-1.3) mg/dL AST 41 H (14-36) U/L ALT 35 H (4-34) U/L Alkaline Phosphatase 175 H (38-126) U/L Total Protein 6.7 (6.3-8.2) g/dL Albumin 3.6 (3.5-5.0) g/dL Lipase 135 (23-300) U/L Urine Color Urine Appearance (Clear) Urine pH (5.0-8.0) Ur Specific Damon (1.001-1.035) Urine Protein (Negative) Urine Glucose (UA) (Negative) Urine Ketones (Negative) Urine Blood (Negative) Urine Nitrite (Negative) Urine Bilirubin (Negative) Urine Urobilinogen (<2.0) mg/dL Ur Leukocyte Esterase (Negative) Urine RBC (0-5) /hpf Urine WBC (0-5) /hpf Ur Squamous Epith Cells (0-4) /hpf Influenza Type A (PCR) Not Detected (Not Detectd) Influenza Type B (PCR) Not Detected (Not Detectd) RSV (PCR) Not Detected (Not Detectd) SARS-CoV-2 (PCR) Not Detected (Not Detectd) 06/20/22 06/20/22 06/20/22 Range/Units 11:33 14:21 15:52 WBC (3.8-10.6) k/uL RBC (3.80-5.40) m/uL Hgb (11.4-16.0) gm/dL Hct (34.0-46.0) % MCV (80.0-100.0) fL MCH (25.0-35.0) pg MCHC (31.0-37.0) g/dL RDW (11.5-15.5) % Plt Count (150-450) k/uL MPV Neutrophils % % Lymphocytes % % Monocytes % % Eosinophils % % Basophils % % Neutrophils # (1.3-7.7) k/uL Lymphocytes # (1.0-4.8) k/uL Monocytes # (0-1.0) k/uL Eosinophils # (0-0.7) k/uL Basophils # (0-0.2) k/uL Hypochromasia Anisocytosis Microcytosis Sodium (137-145) mmol/L Potassium (3.5-5.1) mmol/L Chloride (98-107) mmol/L Carbon Dioxide (22-30) mmol/L Anion Gap mmol/L BUN (7-17) mg/dL Creatinine (0.52-1.04) mg/dL Est GFR (CKD-EPI)AfAm (>60 ml/min/1.73 sqM) Est GFR (CKD-EPI)NonAf (>60 ml/min/1.73 sqM) Glucose (74-99) mg/dL POC Glucose (mg/dL) 423 H 298 H (70-110) mg/dL POC Glu Ceiling Insulation Blower ID Michaela Espinal Lauren Calcium (8.4-10.2) mg/dL Total Bilirubin (0.2-1.3) mg/dL AST (14-36) U/L ALT (4-34) U/L Alkaline Phosphatase (38-126) U/L Total Protein (6.3-8.2) g/dL Albumin (3.5-5.0) g/dL Lipase (23-300) U/L Urine Color Light Yellow Urine Appearance Clear (Clear) Urine pH 6.0 (5.0-8.0) Ur Specific Damon 1.028 (1.001-1.035) Urine Protein 2+ H (Negative) Urine Glucose (UA) 4+ H (Negative) Urine Ketones Negative (Negative) Urine Blood Negative (Negative) Urine Nitrite Negative (Negative) Urine Bilirubin Negative (Negative) Urine Urobilinogen <2.0 (<2.0) mg/dL Ur Leukocyte Esterase Negative (Negative) Urine RBC 1 (0-5) /hpf Urine WBC 1 (0-5) /hpf Ur Squamous Epith Cells 3 (0-4) /hpf Influenza Type A (PCR) (Not Detectd) Influenza Type B (PCR) (Not Detectd) RSV (PCR) (Not Detectd) SARS-CoV-2 (PCR) (Not Detectd) Disposition Clinical Impression: Vomiting Disposition: HOME SELF-CARE Condition: Stable Instructions (If sedation given, give patient instructions): Acute Nausea and Vomiting (ED) Additional Instructions: These return to the nearest emergency department if symptoms worsen or persist Is patient prescribed a controlled substance at d/c from ED?: No Referrals: Guillermo Cerda MD [Primary Care Provider] - 1-2 days Time of Disposition: 15:55
[2022-06-20 11:52] LABS: Anisocytosis Slight; Basophils % (A) 0 %; Eosinophils # (A) 0.1 k/uL (0-0.7); Eosinophils % (A) 1 %; HCT 41.2 % (34.0-46.0); Hypochromasia Slight; Lymphocytes # (A) 1.1 k/uL (1.0-4.8); Lymphocytes % (A) 13 %; MCH 24.8 pg (25.0-35.0); MCHC 31.5 g/dL (31.0-37.0); MCV 78.9 fL (80.0-100.0); Mean Platelet Volume 6.9; Microcytosis Slight; Monocytes # (A) 0.4 k/uL (0-1.0); Monocytes % (A) 4 %; Neutrophils % (A) 81 %; Platelet Count 393 k/uL (150-450); RBC 5.22 m/uL (3.80-5.40); RDW 18.5 % (11.5-15.5); WBC 8.6 k/uL (3.8-10.6)
[2022-06-20 11:57] LABS: Appearance,Urine Clear (Clear); Bilirubin,Urine Negative (Negative); Blood,Urine Negative (Negative); Color,Urine Light Yellow; Glucose,Urine (UA) 4+ (Negative); Ketones,Urine Negative (Negative); Leukocyte Esterase,Urine Negative (Negative); Nitrite,Urine Negative (Negative); Protein,Urine 2+ (Negative); RBC,Urine 1 /hpf (0-5); Specific Gravity,Urine 1.028 (1.001-1.035); Squamous Epithelial Cell,Urine 3 /hpf (0-4); Urobilinogen,Urine <2.0 mg/dL (<2.0); WBC,Urine 1 /hpf (0-5)
[2022-06-20 12:10] LABS: ALT 35 U/L (4-34); AST 41 U/L (14-36); African American GFR (CKD) >90 (>60 ml/min/1.73 sqM); Albumin 3.6 g/dL (3.5-5.0); Alkaline Phosphatase 175 U/L (38-126); Anion Gap 14 mmol/L; Blood Urea Nitrogen 16 mg/dL (7-17); Calcium 8.7 mg/dL (8.4-10.2); Carbon Dioxide 20 mmol/L (22-30); Chloride 94 mmol/L (98-107); Lipase 135 U/L (23-300); Non-African American GFR(CKD) >90 (>60 ml/min/1.73 sqM); Potassium 3.9 mmol/L (3.5-5.1); Sodium 128 mmol/L (137-145); Total Bilirubin 0.6 mg/dL (0.2-1.3); Total Protein 6.7 g/dL (6.3-8.2)
[2022-06-20 12:15] LABS: Glucose 550 mg/dL (74-99)
[2022-06-20 13:06] VITALS: TEMP 99.2
[2022-06-20 14:25] LABS: Glucose,Whole Blood 423 mg/dL (70-110)
[2022-06-20] MEDS ORDERED: INSULIN REGULAR 100 UNIT/ML VIAL (IV) IV ONE (14:52)
[2022-06-20] MEDS ORDERED: SODIUM CHLORIDE 0.9% 1,000 ML IV SCH (15:00)
[2022-06-20 15:08] VITALS: BP 164/82; PULSE 67
[2022-06-20] MEDS ORDERED: SODIUM CHLORIDE 0.9% 500 ML 500 ML IV SCH (15:15)
[2022-06-20 15:54] LABS: Glucose,Whole Blood 298 mg/dL (70-110)
[2022-06-20 16:08] VITALS: RESP 18
== END 2022-06-20 16:08 | disposition home or self-care (01) ==
LOC: EC 10:47
DX: E11.65 Type 2 diabetes mellitus with hyperglycemia (principal); R11.10 Vomiting, unspecified; I10 Essential (primary) hypertension; E78.5 Hyperlipidemia, unspecified; K21.9 Gastro-esophageal reflux disease without esophagitis; Z20.822 Contact with and (suspected) exposure to COVID-19; Z79.84 Long term (current) use of oral hypoglycemic drugs; Z79.899 Other long term (current) drug therapy; Z87.891 Personal history of nicotine dependence; Z88.1 Allergy status to other antibiotic agents
CPT/HCPCS: 36415; 93005; 80053; 83690; 85025; 81001; 87636; 99285; 96374; 96375 ×2; 96361 ×4; J2405; J1885

== ENCOUNTER 2022-07-12 10:04 | Emergency (ER) | payer MEDICARE ==
[2022-07-12] MEDS ORDERED: SODIUM CHLORIDE 0.9% 1,000 ML IV STA (10:17)
[2022-07-12] MEDS ORDERED: METOCLOPRAMIDE 5 MG/ML 2 ML VIAL IVP STA (10:17)
[2022-07-12] MEDS ORDERED: SODIUM CHLORIDE 0.9% 500 ML 500 ML IV STA (10:17)
[2022-07-12] MEDS ORDERED: MAG HYDROX/AL HYDROX/SIMETH 30 ML, HYOSCYAMINE ELIXIR 10 ML, LIDOCAINE VISCOUS 2% 10 ML PO STA ×3 (10:18)
[2022-07-12] MEDS ORDERED: FAMOTIDINE 20 MG/2 ML VIAL IV STA (10:18)
[2022-07-12] MEDS ORDERED: INSULIN REGULAR 100 UNIT/ML VIAL (IV) IV ONE (10:22)
[2022-07-12 10:25] LABS: Glucose,Whole Blood 491 mg/dL (70-110)
--- NOTE | 2022-07-12 10:27 | ED ---
General Adult HPI - General Chief complaint: Chest Pain Stated complaint: Abd Pain Time Seen by Provider: 07/12/22 10:06 Source: patient, EMS, RN notes reviewed Mode of arrival: EMS Limitations: no limitations - History of Present Illness Initial comments: 51-year-old female presents emergency Department with chief complaint of epigastric abdominal pain. Patient states that started several days ago states that she been having some reflux issues she did have an episode nausea vomiting. Blood sugar was elevated to 200s at home. Patient has no dysuria no hematuria denies any diarrhea. Patient does have some chronic abdominal issues and has uncontrolled diabetes. Denies any chest pain fever or chills. - Related Data Home Medications Medication Instructions Recorded Confirmed Atorvastatin [Lipitor] 80 mg PO HS 06/25/19 03/03/22 lisinopriL 40 mg PO DAILY 09/24/20 03/03/22 metFORMIN HCL [Glucophage] 500 mg PO DAILY 09/24/20 03/03/22 traZODone HCL 50 - 100 mg PO HS PRN 01/11/21 03/03/22 Ergocalciferol (Vitamin D2) 1,250 mcg PO TU 03/03/21 03/03/22 [Drisdol (50,000 Iu)] Albuterol Inhaler [Ventolin Hfa 2 puff INHALATION RT-QID PRN 07/28/21 03/03/22 Inhaler] Esomeprazole Magnesium [NexIUM] 20 mg PO DAILY 01/30/22 03/03/22 Previous Rx's Medication Instructions Recorded INSULIN ASPART (NovoLOG) [NovoLOG 30 unit SQ AC-TID #10 ml 02/06/22 (formulary)] Insulin Detemir (Levemir) [Levemir] 90 unit SQ DAILY@0700 30 Days #1 02/06/22 pen Doxycycline Hyclate 100 mg PO BID 10 Days #20 tab 03/08/22 Sulfamethox-Tmp 800-160Mg [Bactrim 1 tab PO Q12HR 10 Days #20 tab 04/29/22 DS 800-160 mg] Allergies Allergy/AdvReac Type Severity Reaction Status Date / Time levofloxacin [From Levaquin] Allergy Rash/Hives Verified 07/12/22 10:11 Review of Systems ROS Statement: Those systems with pertinent positive or pertinent negative responses have been documented in the HPI. ROS Other: All systems not noted in ROS Statement are negative. Past Medical History Past Medical History: Diabetes Mellitus, GERD/Reflux, Hyperlipidemia, Hypertension, Syncope Additional Past Medical History / Comment(s): Pt recently admitted to [facility] on 07/21/21 with uncontrolled IDDM and hyperkalemia. Other hx: Recurrent pancreatitis, hypertriglyceridemia, elevated lipase, IDDM type II, UTI, chronic low back pain, bulging discs, dental abscesses in past. History of Any Multi-Drug Resistant Organisms: MRSA Date of last positivie culture/infection: 04/29/22 MDRO Source:: Buttock Past Surgical History: Tubal Ligation Additional Past Surgical History / Comment(s): Age 7 had VSD repair Past Anesthesia/Blood Transfusion Reactions: No Reported Reaction Past Psychological History: No Psychological Hx Reported Smoking Status: Former smoker Past Alcohol Use History: None Reported Past Drug Use History: None Reported - Past Family History Mother Family Medical History: No Reported History Additional Family Medical History / Comment(s): Mother was healthy. She is dec eased, pt cannot recall cause of . Father Family Medical History: Pneumonia Additional Family Medical History / Comment(s): Father at the age of 67yrs from pneumonia General Exam Limitations: no limitations General appearance: alert, in no apparent distress Head exam: Present: atraumatic, normocephalic, normal inspection Eye exam: Present: normal appearance, PERRL, EOMI. Absent: scleral icterus, conjunctival injection, periorbital swelling ENT exam: Present: normal exam, normal oropharynx, mucous membranes moist Neck exam: Present: normal inspection, full ROM. Absent: tenderness, meningismus, lymphadenopathy Respiratory exam: Present: normal lung sounds bilaterally. Absent: respiratory distress, wheezes, rales, rhonchi, stridor Cardiovascular Exam: Present: regular rate, normal rhythm, normal heart sounds. Absent: systolic murmur, diastolic murmur, rubs, gallop, clicks GI/Abdominal exam: Present: soft, tenderness (Epigastric), normal bowel sounds. Absent: distended, guarding, rebound, rigid Back exam: Absent: CVA tenderness (R), CVA tenderness (L) Neurological exam: Present: alert Course Vital Signs 07/12/22 07/12/22 10:06 11:25 Temperature 98.9 F Pulse Rate 72 68 Respiratory 16 16 Rate Blood Pressure 148/85 132/53 O2 Sat by Pulse 95 98 Oximetry EKG Findings - EKG Comments: EKG Findings:: EKG performed at 10:07 sinus rhythm rate of 69 NH 128 QRS 87 QT/QTC 388/407 - EKG Results: EKG: interpreted by [place] Medical Decision Making - Medical Decision Making Was pt. sent in by a medical professional or institution (, PA, JEWEL BEARING DRILLER, urgent care, hospital, or [facility]...) When possible be specific @ -No Did you speak to anyone other than the patient for history (EMS, parent, family, police, friend...)? What history was obtained from this source @ -No Did you review nursing and triage notes (agree or disagree)? Why? @ -I reviewed and agree with nursing and triage notes Were old charts reviewed (outside hosp., previous admission, EMS record, old EKG, old radiological studies, urgent care reports/EKG's, ch[facility] records)? Report findings @ -Review prior laboratory studies, imaging] Differential Diagnosis (chest pain, altered mental status, abdominal pain women, abdominal pain men, vaginal bleeding, weakness, fever, dyspnea, syncope, headache, dizziness, GI bleed, back pain, seizure, CVA, palpatations, mental health, musculoskeletal)? @ -nDifferential Abdominal Pain Women: Appendicitis, Cholecystitis, diverticulosis, ischemic bowel, pancreatitis, hepatitis, UTI, gastroenteritis, AAA, incarcerated hernia, bowel obstruction, constipation, inflammatory bowel, hepatitis, peptic ulcer disease, splenic infarction, perforated viscus, vulvitis, ovarian torsion, PID, kidney stone, placenta abruption, this is not meant to be an all-inclusive liste EKG interpreted by me (3pts min.). @ -As above X-rays interpreted by me (1pt min.). @ -None done CT interpreted by me (1pt min.). @ -None done U/S interpreted by me (1pt. min.). @ -None done What testing was considered but not performed or refused? (CT, X-rays, U/S, labs)? Why? @ -Consider imaging the patient had multiple x-rays, CAT scans has no localized pain What meds were considered but not given or refused? Why? @ -None Did you discuss the management of the patient with other professionals (pro fessionals i.e. , PA, JEWEL BEARING DRILLER, lab, RT, psych nurse, social psychologist, customer loyalty representative, teacher, human resource officer, case packer)? Give summary @ -No Was smoking cessation discussed for >3mins.? @ -No Was critical care preformed (if so, how long)? @ -No Were there social determinants of health that impacted care today? How? (Homelessness, low income, unemployed, alcoholism, drug addiction, transporta tion, low edu. Level, literacy, decrease access to med. care, [facility], rehab)? @ -No Was there de-escalation of care discussed even if they declined (Discuss DNR or withdrawal of care, Hospice)? DNR status @ -No What co-morbidities impacted this encounter? (DM, HTN, Smoking, COPD, CAD, Cancer, CVA, ARF, Chemo, Hep., AIDS, mental health diagnosis, sleep apnea, morbid obesity)? @ -Uncontrolled diabetes Was patient admitted / discharged? Hospital course, mention meds given and route, prescriptions, significant lab abnormalities, going to OR and other pertinent info. @ -Discharged patient's had for couple no acute findings other than hyperglycemia patient is well-known to have uncontrolled diabetes she is given 1500 mL liter bolus, 10 units of regular insulin IV and 30 units subcu as her normal dose. Undiagnosed new problem with uncertain prognosis? @ -No Drug Therapy requiring intensive monitoring for toxicity (Heparin, Nitro, Insulin, Cardizem)? @ -No Were any procedures done? @ -No Diagnosis/symptom? @ -Hyperglycemia Acute, or Chronic, or Acute on Chronic? @ -Acute chronic Uncomplicated (without systemic symptoms) or Complicated (systemic symptoms)? @ -Complicated Side effects of treatment? @ -No] Exacerbation, Progression, or Severe Exacerbation? @ -[No] Poses a threat to life or bodily function? How? (Chest pain, [place], [place], pneumonia, PE, COPD, DKA, ARF, appy, cholecystitis, CVA, Diverticulitis, Homicidal, Suicidal, threat to staff... and all critical care pts) @ -[ chronic elevated blood sugar can cause DKA causing .] - Lab Data Result diagrams: 07/12/22 10:26 07/12/22 10:26 Lab Results 07/12/22 07/12/22 07/12/22 Range/Units 10:21 10:26 10:26 WBC 7.6 (3.8-10.6) k/uL RBC 5.05 (3.80-5.40) m/uL Hgb 13.0 (11.4-16.0) gm/dL Hct 40.1 (34.0-46.0) % MCV 79.3 L (80.0-100.0) fL MCH 25.6 (25.0-35.0) pg MCHC 32.3 (31.0-37.0) g/dL RDW 17.8 H (11.5-15.5) % Plt Count 437 (150-450) k/uL MPV 8.0 Neutrophils % 68 % Lymphocytes % 23 % Monocytes % 5 % Eosinophils % 2 % Basophils % 1 % Neutrophils # 5.2 (1.3-7.7) k/uL Lymphocytes # 1.7 (1.0-4.8) k/uL Monocytes # 0.4 (0-1.0) k/uL Eosinophils # 0.2 (0-0.7) k/uL Basophils # 0.0 (0-0.2) k/uL Anisocytosis Slight Microcytosis Slight Sodium (137-145) mmol/L Potassium (3.5-5.1) mmol/L Chloride (98-107) mmol/L Carbon Dioxide (22-30) mmol/L Anion Gap mmol/L BUN (7-17) mg/dL Creatinine (0.52-1.04) mg/dL Est GFR (CKD-EPI)AfAm (>60 ml/min/1.73 sqM) Est GFR (CKD-EPI)NonAf (>60 ml/min/1.73 sqM) Glucose (74-99) mg/dL POC Glucose (mg/dL) 491 H (70-110) mg/dL POC Glu Paid Search Marketing Strategist ID April, Christine Calcium (8.4-10.2) mg/dL Total Bilirubin (0.2-1.3) mg/dL AST (14-36) U/L ALT (4-34) U/L Alkaline Phosphatase (38-126) U/L Troponin I (0.000-0.034) ng/mL Total Protein (6.3-8.2) g/dL Albumin (3.5-5.0) g/dL Amylase (30-110) U/L Lipase (23-300) U/L Urine Color Light Yellow Urine Appearance Cloudy H (Clear) Urine pH 6.0 (5.0-8.0) Ur Specific [place] 1.031 (1.001-1.035) Urine Protein 2+ H (Negative) Urine Glucose (UA) 4+ H (Negative) Urine Ketones Negative (Negative) Urine Blood Negative (Negative) Urine Nitrite Negative (Negative) Urine Bilirubin Negative (Negative) Urine Urobilinogen <2.0 (<2.0) mg/dL Ur Leukocyte Esterase Negative (Negative) Urine RBC 1 (0-5) /hpf Urine WBC 3 (0-5) /hpf Ur Squamous Epith Cells 14 H (0-4) /hpf 07/12/22 07/12/22 07/12/22 Range/Units 10:26 10:26 11:22 WBC (3.8-10.6) k/uL RBC (3.80-5.40) m/uL Hgb (11.4-16.0) gm/dL Hct (34.0-46.0) % MCV (80.0-100.0) fL MCH (25.0-35.0) pg MCHC (31.0-37.0) g/dL RDW (11.5-15.5) % Plt Count (150-450) k/uL MPV Neutrophils % % Lymphocytes % % Monocytes % % Eosinophils % % Basophils % % Neutrophils # (1.3-7.7) k/uL Lymphocytes # (1.0-4.8) k/uL Monocytes # (0-1.0) k/uL Eosinophils # (0-0.7) k/uL Basophils # (0-0.2) k/uL Anisocytosis Microcytosis Sodium 132 L (137-145) mmol/L Potassium 4.5 (3.5-5.1) mmol/L Chloride 97 L (98-107) mmol/L Carbon Dioxide 24 (22-30) mmol/L Anion Gap 11 mmol/L BUN 11 (7-17) mg/dL Creatinine 0.52 (0.52-1.04) mg/dL Est GFR (CKD-EPI)AfAm >90 (>60 ml/min/1.73 sqM) Est GFR (CKD-EPI)NonAf >90 (>60 ml/min/1.73 sqM) Glucose 489 H (74-99) mg/dL POC Glucose (mg/dL) 403 H (70-110) mg/dL POC Glu Paid Search Marketing Strategist ID Christine Chen Calcium 8.7 (8.4-10.2) mg/dL Total Bilirubin 0.4 (0.2-1.3) mg/dL AST 31 (14-36) U/L ALT 28 (4-34) U/L Alkaline Phosphatase 154 H (38-126) U/L Troponin I <0.012 (0.000-0.034) ng/mL Total Protein 6.4 (6.3-8.2) g/dL Albumin 3.5 (3.5-5.0) g/dL Amylase 37 (30-110) U/L Lipase 139 (23-300) U/L Urine Color Urine Appearance (Clear) Urine pH (5.0-8.0) Ur Specific [place] (1.001-1.035) Urine Protein (Negative) Urine Glucose (UA) (Negative) Urine Ketones (Negative) Urine Blood (Negative) Urine Nitrite (Negative) Urine Bilirubin (Negative) Urine Urobilinogen (<2.0) mg/dL Ur Leukocyte Esterase (Negative) Urine RBC (0-5) /hpf Urine WBC (0-5) /hpf Ur Squamous Epith Cells (0-4) /hpf Disposition Clinical Impression: Abdominal pain, GERD (gastroesophageal reflux disease), Hyperglycemia Disposition: HOME SELF-CARE Condition: Stable Instructions (If sedation given, give patient instructions): Abdominal Pain (ED) Additional Instructions: Please return to the Emergency Department if symptoms worsen or any other concerns. Is patient prescribed a controlled substance at d/c from ED?: No Referrals: Guillermo Cerda MD [Primary Care Provider] - 1-2 days Time of Disposition: 11:55
[2022-07-12 11:10] LABS: Anisocytosis Slight; Basophils % (A) 1 %; Eosinophils # (A) 0.2 k/uL (0-0.7); Eosinophils % (A) 2 %; HCT 40.1 % (34.0-46.0); Lymphocytes # (A) 1.7 k/uL (1.0-4.8); Lymphocytes % (A) 23 %; MCH 25.6 pg (25.0-35.0); MCHC 32.3 g/dL (31.0-37.0); MCV 79.3 fL (80.0-100.0); Microcytosis Slight; Monocytes # (A) 0.4 k/uL (0-1.0); Monocytes % (A) 5 %; Neutrophils # (A) 5.2 k/uL (1.3-7.7); Neutrophils % (A) 68 %; Platelet Count 437 k/uL (150-450); RBC 5.05 m/uL (3.80-5.40); RDW 17.8 % (11.5-15.5); WBC 7.6 k/uL (3.8-10.6)
[2022-07-12 11:13] LABS: Appearance,Urine Cloudy (Clear); Bilirubin,Urine Negative (Negative); Blood,Urine Negative (Negative); Color,Urine Light Yellow; Glucose,Urine (UA) 4+ (Negative); Ketones,Urine Negative (Negative); Leukocyte Esterase,Urine Negative (Negative); Nitrite,Urine Negative (Negative); Protein,Urine 2+ (Negative); RBC,Urine 1 /hpf (0-5); Specific Gravity,Urine 1.031 (1.001-1.035); Squamous Epithelial Cell,Urine 14 /hpf (0-4); Urobilinogen,Urine <2.0 mg/dL (<2.0); WBC,Urine 3 /hpf (0-5)
[2022-07-12 11:23] LABS: ALT 28 U/L (4-34); AST 31 U/L (14-36); African American GFR (CKD) >90 (>60 ml/min/1.73 sqM); Albumin 3.5 g/dL (3.5-5.0); Alkaline Phosphatase 154 U/L (38-126); Amylase 37 U/L (30-110); Anion Gap 11 mmol/L; Blood Urea Nitrogen 11 mg/dL (7-17); Calcium 8.7 mg/dL (8.4-10.2); Carbon Dioxide 24 mmol/L (22-30); Chloride 97 mmol/L (98-107); Glucose 489 mg/dL (74-99); Lipase 139 U/L (23-300); Non-African American GFR(CKD) >90 (>60 ml/min/1.73 sqM); Potassium 4.5 mmol/L (3.5-5.1); Sodium 132 mmol/L (137-145); Total Bilirubin 0.4 mg/dL (0.2-1.3); Total Protein 6.4 g/dL (6.3-8.2)
[2022-07-12 11:24] LABS: Glucose,Whole Blood 403 mg/dL (70-110)
[2022-07-12] MEDS ORDERED: INSULIN ASPART (NovoLOG) 100 UNIT/ML VIAL SQ ONE (11:28)
[2022-07-12 12:34] VITALS: BP 144/75; PULSE 70; RESP 18; TEMP 98.8
== END 2022-07-12 12:10 | disposition home or self-care (01) ==
LOC: EC 10:04
DX: K21.9 Gastro-esophageal reflux disease without esophagitis (principal); E11.65 Type 2 diabetes mellitus with hyperglycemia; E78.5 Hyperlipidemia, unspecified; I10 Essential (primary) hypertension; Z87.891 Personal history of nicotine dependence; Z88.1 Allergy status to other antibiotic agents; Z79.84 Long term (current) use of oral hypoglycemic drugs; Z79.4 Long term (current) use of insulin; Z79.899 Other long term (current) drug therapy
CPT/HCPCS: 36415; 93005; 80053; 82150; 83690; 84484; 85025; 81001; 99285; 96374; 96375 ×2; 96361; J2765

== ENCOUNTER 2022-09-01 03:20 | Emergency (ER) | payer MEDICARE ==
[2022-09-01 03:30] VITALS: BP 130/55; PULSE 74; RESP 18; TEMP 99
[2022-09-01] MEDS ORDERED: LIDOCAINE 1% INJ 10MG/ML (30 ML VIAL-PF) SQ ONE (04:09)
--- NOTE | 2022-09-01 04:25 | ED ---
General Adult HPI - General Chief complaint: Skin/Abscess/Foreign Body Stated complaint: Pain all over Time Seen by Provider: 09/01/22 03:24 Source: patient, EMS, RN notes reviewed, old records reviewed Mode of arrival: EMS Limitations: no limitations - History of Present Illness Initial comments: 51-year-old female presents for evaluation of pain and swelling in the vaginal area. No fevers. Patient has had similar abscesses of the box in the past. She is a diabetic. No systemic symptoms. - Related Data Home Medications Medication Instructions Recorded Confirmed Atorvastatin [Lipitor] 80 mg PO HS 06/25/19 03/03/22 lisinopriL 40 mg PO DAILY 09/24/20 03/03/22 metFORMIN HCL [Glucophage] 500 mg PO DAILY 09/24/20 03/03/22 traZODone HCL 50 - 100 mg PO HS PRN 01/11/21 03/03/22 Ergocalciferol (Vitamin D2) 1,250 mcg PO TU 03/03/21 03/03/22 [Drisdol (50,000 Iu)] Albuterol Inhaler [Ventolin Hfa 2 puff INHALATION RT-QID PRN 07/28/21 03/03/22 Inhaler] Esomeprazole Magnesium [NexIUM] 20 mg PO DAILY 01/30/22 03/03/22 Previous Rx's Medication Instructions Recorded INSULIN ASPART (NovoLOG) [NovoLOG 30 unit SQ AC-TID #10 ml 02/06/22 (formulary)] Insulin Detemir (Levemir) [Levemir] 90 unit SQ DAILY@0700 30 Days #1 02/06/22 pen Doxycycline Hyclate 100 mg PO BID 10 Days #20 tab 03/08/22 Sulfamethox-Tmp 800-160Mg [Bactrim 1 tab PO Q12HR 10 Days #20 tab 04/29/22 DS 800-160 mg] Sulfamethox-Tmp 800-160Mg [Bactrim 1 tab PO Q12HR #28 tab 09/01/22 DS 800-160 mg] Allergies Allergy/AdvReac Type Severity Reaction Status Date / Time levofloxacin [From Levaquin] Allergy Rash/Hives Verified 07/12/22 10:11 Review of Systems ROS Statement: Those systems with pertinent positive or pertinent negative responses have been documented in the HPI. ROS Other: All systems not noted in ROS Statement are negative. Past Medical History Past Medical History: Diabetes Mellitus, GERD/Reflux, Hyperlipidemia, Hype rtension, Syncope Additional Past Medical History / Comment(s): Pt recently admitted to [facility] on 07/21/21 with uncontrolled IDDM and hyperkalemia. Other hx: Recurrent pancre atitis, hypertriglyceridemia, elevated lipase, IDDM type II, UTI, chronic low back pain, bulging discs, dental abscesses in past. History of Any Multi-Drug Resistant Organisms: MRSA Date of last positivie culture/infection: 04/29/22 MDRO Source:: Buttock Past Surgical History: Tubal Ligation Additional Past Surgical History / Comment(s): Age 7 had VSD repair Past Anesthesia/Blood Transfusion Reactions: No Reported Reaction Past Psychological History: No Psychological Hx Reported Smoking Status: Former smoker Past Alcohol Use History: None Reported Past Drug Use History: None Reported - Past Family History Mother Family Medical History: No Reported History Additional Family Medical History / Comment(s): Mother was healthy. She is , pt cannot recall cause of . Father Family Medical History: Pneumonia Additional Family Medical History / Comment(s): Father at the age of 67yrs from pneumonia General Exam Limitations: no limitations General appearance: alert, in no apparent distress Head exam: Present: atraumatic, normocephalic Eye exam: Present: normal appearance ENT exam: Present: normal exam Neck exam: Present: normal inspection Respiratory exam: Absent: respiratory distress Cardiovascular Exam: Present: regular rate, normal rhythm GI/Abdominal exam: Absent: distended, tenderness External exam: Present: other (Patient has an abscess to the left buttock adjacent to the perineum. This is not communicating with the anus or vagina.) Neurological exam: Present: alert, oriented X3 Psychiatric exam: Present: normal affect, normal mood Course Vital Signs 09/01/22 03:25 Temperature 99.0 F Pulse Rate 74 Respiratory 18 Rate Blood Pressure 130/55 O2 Sat by Pulse 97 Oximetry Procedures - Incision & Drainage Consent Obtained: verbal consent Indication: Abscess Site: buttock Anesthetic Used: lidocaine 1% Amount (mLs): 5 I&D Cleaning Method: Alcohol Wipe Sterile Field Used?: Yes Scalpel Used: #15 Needle Aspiration Performed?: No Irrigation Performed?: Yes I&D Drainage Obtained: Pus, Blood Packing: Iodoform Culture Obtained?: No Patient Tolerated Procedure: well Medical Decision Making - Medical Decision Making Was pt. sent in by a medical professional or institution (ROSALIE Flaherty, SIDE SHOW ENTERTAINER, urgent care, hospital, or intermediate...) When possible be specific @ -No Did you speak to anyone other than the patient for history (EMS, parent, family, police, friend...)? What history was obtained from this source @ -No Did you review nursing and triage notes (agree or disagree)? Why? @ -I reviewed and agree with nursing and triage notes Were old charts reviewed (outside hosp., previous admission, EMS record, old EKG, old radiological studies, urgent care reports/EKG's, intermediate records)? Report findings @ -No old charts were reviewed Differential Diagnosis (chest pain, altered mental status, abdominal pain women, abdominal pain men, vaginal bleeding, weakness, fever, dyspnea, syncope, headache, dizziness, GI bleed, back pain, seizure, CVA, palpatations, mental health, musculoskeletal)? @ -Abscess, Bartholin cysts, cellulitis EKG interpreted by me (3pts min.). @ -As above X-rays interpreted by me (1pt min.). @ -None done CT interpreted by me (1pt min.). @ -None done U/S interpreted by me (1pt. min.). @ -None done What testing was considered but not performed or refused? (CT, X-rays, U/S, labs)? Why? @ -None What meds were considered but not given or refused? Why? @ -None Did you discuss the management of the patient with other professionals (professionals i.e. ROSALIE Flaherty, SIDE SHOW ENTERTAINER, lab, RT, psych nurse, director social service, tacking machine operator, teacher, commanding officer homicide squad, case liner)? Give summary @ -No Was smoking cessation discussed for >3mins.? @ -No Was critical care preformed (if so, how long)? @ -No Were there social determinants of health that impacted care today? How? (Homelessness, low income, unemployed, alcoholism, drug addiction, transportation, low edu. Level, literacy, decrease access to med. care, half-way, rehab)? @ -No Was there de-escalation of care discussed even if they declined (Discuss DNR or withdrawal of care, Hospice)? DNR status @ -No What co-morbidities impacted this encounter? (DM, HTN, Smoking, COPD, CAD, Cancer, CVA, ARF, Chemo, Hep., AIDS, mental health diagnosis, sleep apnea, morbid obesity)? @ -Diabetic Was patient admitted / discharged? Hospital course, mention meds given and route, prescriptions, significant lab abnormalities, going to OR and other pertinent info. @ -[51-year-old female with fluctuant abscess to the left buttock adjacent to the perineum. There is an area of about 3 cm of fluctuance which had a central area where it had previously drained. This was reopened with 15 blade and iodoform packing was placed. Patient started on antibiotics for adjacent cellulitis. Undiagnosed new problem with uncertain prognosis? @ -No Drug Therapy requiring intensive monitoring for toxicity (Heparin, Nitro, Insulin, Cardizem)? @ -No Were any procedures done? @ -No Diagnosis/symptom? @Abscess Acute, or Chronic, or Acute on Chronic? @Acute Uncomplicated (without systemic symptoms) or Complicated (systemic symptoms)? @ -default Side effects of treatment? @ -No Exacerbation, Progression, or Severe Exacerbation? @ -No Poses a threat to life or bodily function? How? (Chest pain, [place], [place], pneumonia, PE, COPD, DKA, ARF, appy, cholecystitis, CVA, Diverticulitis, Homicidal, Suicidal, threat to staff... and all critical care pts) @ -[Low risk Disposition Clinical Impression: Abscess and cellulitis of gluteal region Disposition: HOME SELF-CARE Condition: Fair Instructions (If sedation given, give patient instructions): Abscess Incision a nd Drainage (ED), Abscess (ED) Prescriptions: Sulfamethox-Tmp 800-160Mg [Bactrim DS 800-160 mg] 1 tab PO Q12HR #28 tab Is patient prescribed a controlled substance at d/c from ED?: No Referrals: Guillermo Cerda MD [Primary Care Provider] - 1-2 days Time of Disposition: 04:25
== END 2022-09-01 04:56 | disposition home or self-care (01) ==
LOC: EC 03:20
DX: L02.31 Cutaneous abscess of buttock (principal); L03.317 Cellulitis of buttock; E11.9 Type 2 diabetes mellitus without complications; I10 Essential (primary) hypertension; E78.5 Hyperlipidemia, unspecified; K21.9 Gastro-esophageal reflux disease without esophagitis; Z79.84 Long term (current) use of oral hypoglycemic drugs; Z79.899 Other long term (current) drug therapy; Z87.891 Personal history of nicotine dependence; Z88.1 Allergy status to other antibiotic agents
CPT/HCPCS: 99284; 10060; J2001

== ENCOUNTER 2022-09-07 21:03 | Emergency (ER) | payer MEDICARE ==
[2022-09-07] MEDS: ONDANSETRON 4 MG/2 ML VIAL IVP STA (23:12)
[2022-09-07] MEDS: KETOROLAC 15 MG/ML 1 ML VIAL IVP STA (23:12)
[2022-09-07] MEDS: SODIUM CHLORIDE 0.9% 1,000 ML IV STA (23:12)
[2022-09-07] MEDS: cefTRIAXone IN SWFI 1,000 MG/10 ML SYRINGE IVP STA (23:13)
[2022-09-08 00:27] LABS: Anisocytosis Slight; Basophils % (A) 0 %; Eosinophils # (A) 0.1 k/uL (0-0.7); Eosinophils % (A) 1 %; HCT 38.2 % (34.0-46.0); HGB 11.8 gm/dL (11.4-16.0); Hypochromasia Slight; Lymphocytes # (A) 1.6 k/uL (1.0-4.8); Lymphocytes % (A) 11 %; MCH 25.6 pg (25.0-35.0); MCHC 30.9 g/dL (31.0-37.0); MCV 82.9 fL (80.0-100.0); Mean Platelet Volume 7.5; Microcytosis Slight; Monocytes # (A) 0.6 k/uL (0-1.0); Monocytes % (A) 4 %; Neutrophils # (A) 11.6 k/uL (1.3-7.7); Neutrophils % (A) 83 %; Platelet Count 794 k/uL (150-450); RBC 4.61 m/uL (3.80-5.40); RDW 17.8 % (11.5-15.5)
[2022-09-08] MEDS: ONDANSETRON 4 MG/2 ML VIAL IVP STA (01:01)
[2022-09-08] MEDS: cefTRIAXone IN SWFI 1,000 MG/10 ML SYRINGE IVP STA (01:01)
[2022-09-08] MEDS: KETOROLAC 15 MG/ML 1 ML VIAL IVP STA (01:01)
[2022-09-08] MEDS: SODIUM CHLORIDE 0.9% 1,000 ML IV STA (01:02)
[2022-09-08 01:10] VITALS: TEMP 98.5
[2022-09-08 01:18] LABS: ALT 14 U/L (4-34); AST 18 U/L (14-36); African American GFR (CKD) >90 (>60 ml/min/1.73 sqM); Alkaline Phosphatase 159 U/L (38-126); Anion Gap 12 mmol/L; Blood Urea Nitrogen 20 mg/dL (7-17); Carbon Dioxide 21 mmol/L (22-30); Chloride 96 mmol/L (98-107); Non-African American GFR(CKD) 87 (>60 ml/min/1.73 sqM); Potassium 4.6 mmol/L (3.5-5.1); Sodium 129 mmol/L (137-145); Total Bilirubin 0.4 mg/dL (0.2-1.3); Total Protein 6.1 g/dL (6.3-8.2)
[2022-09-08 02:06] LABS: Glucose 510 mg/dL (74-99)
[2022-09-08] MEDS ORDERED: SODIUM CHLORIDE 0.9% 1,000 ML IV STA (02:22)
[2022-09-08] MEDS ORDERED: INSULIN REGULAR 100 UNIT/ML VIAL (IV) IV ONE (02:22)
[2022-09-08 03:56] LABS: Glucose,Whole Blood 318 mg/dL (70-110)
--- NOTE | 2022-09-08 04:04 | ED ---
General Adult HPI - General Chief complaint: Recheck/Abnormal Lab/Rx Stated complaint: Not Feeling Well Time Seen by Provider: 09/07/22 22:46 Source: patient Mode of arrival: EMS Limitations: no limitations - History of Present Illness Initial comments: Patient is a 51-year-old female who presents to the emergency department for "not feeling well." Patient reports general malaise and nausea for the past couple days. States she had an abscess drained in her thigh a few days ago here in the emergency department. States she has been taking her Bactrim as directed. She denies fever, chills, vomiting. Patient is non compliant type 2 diabetic. She denies abdominal pain, increased thirst, increased urination. No chest pain or shortness of breath. - Related Data Home Medications Medication Instructions Recorded Confirmed Atorvastatin [Lipitor] 80 mg PO HS 06/25/19 03/03/22 lisinopriL 40 mg PO DAILY 09/24/20 03/03/22 metFORMIN HCL [Glucophage] 500 mg PO DAILY 09/24/20 03/03/22 traZODone HCL 50 - 100 mg PO HS PRN 01/11/21 03/03/22 Ergocalciferol (Vitamin D2) 1,250 mcg PO TU 03/03/21 03/03/22 [Drisdol (50,000 Iu)] Albuterol Inhaler [Ventolin Hfa 2 puff INHALATION RT-QID PRN 07/28/21 03/03/22 Inhaler] Esomeprazole Magnesium [NexIUM] 20 mg PO DAILY 01/30/22 03/03/22 Previous Rx's Medication Instructions Recorded INSULIN ASPART (NovoLOG) [NovoLOG 30 unit SQ AC-TID #10 ml 02/06/22 (formulary)] Insulin Detemir (Levemir) [Levemir] 90 unit SQ DAILY@0700 30 Days #1 02/06/22 pen Doxycycline Hyclate 100 mg PO BID 10 Days #20 tab 03/08/22 Sulfamethox-Tmp 800-160Mg [Bactrim 1 tab PO Q12HR 10 Days #20 tab 04/29/22 DS 800-160 mg] Sulfamethox-Tmp 800-160Mg [Bactrim 1 tab PO Q12HR #28 tab 09/01/22 DS 800-160 mg] Cephalexin [Keflex] 500 mg PO Q6HR #40 cap 09/08/22 Allergies Allergy/AdvReac Type Severity Reaction Status Date / Time levofloxacin [From Levaquin] Allergy Rash/Hives Verified 09/07/22 21:16 Review of Systems ROS Statement: Those systems with pertinent positive or pertinent negative responses have been documented in the HPI. ROS Other: All systems not noted in ROS Statement are negative. Past Medical History Past Medical History: Diabetes Mellitus, GERD/Reflux, Hyperlipidemia, Hypertension, Syncope Additional Past Medical History / Comment(s): Pt recently admitted to [facility] on 07/21/21 with uncontrolled IDDM and hyperkalemia. Other hx: Recurrent pancreatitis, hypertriglyceridemia, elevated lipase, IDDM type II, UTI, chronic low back pain, bulging discs, dental abscesses in past. History of Any Multi-Drug Resistant Organisms: MRSA Date of last positivie culture/infection: 04/29/22 MDRO Source:: Buttock Past Surgical History: Tubal Ligation Additional Past Surgical History / Comment(s): Age 7 had VSD repair Past Anesthesia/Blood Transfusion Reactions: No Reported Reaction Past Psychological History: No Psychological Hx Reported Smoking Status: Former smoker Past Alcohol Use History: None Reported Past Drug Use History: None Reported - Past Family History Mother Family Medical History: No Reported History Additional Family Medical History / Comment(s): Mother was healthy. She is , pt cannot recall cause of . Father Family Medical History: Pneumonia Additional Family Medical History / Comment(s): Father at the age of 67yrs from pneumonia General Exam Limitations: no limitations General appearance: alert, in no apparent distress Eye exam: Present: normal appearance, PERRL, EOMI. Absent: scleral icterus, conjunctival injection, periorbital swelling Respiratory exam: Present: normal lung sounds bilaterally. Absent: respiratory distress, wheezes, rales, rhonchi, stridor Cardiovascular Exam: Present: regular rate, normal rhythm, normal heart sounds. Absent: systolic murmur, diastolic murmur, rubs, gallop, clicks Extremities exam: Present: other (3 by 2 cm draining abscess with induration and 1 cm surrounding cellulitis) Neurological exam: Present: alert, oriented X3, CN II-XII intact Psychiatric exam: Present: normal affect, normal mood Skin exam: Present: warm, dry, intact, normal color. Absent: rash Course Vital Signs 09/07/22 09/08/22 09/08/22 21:10 01:08 04:24 Temperature 99.4 F 98.5 F Pulse Rate 71 69 Pulse Rate [ 55 L Supine] Respiratory 20 16 14 Rate Blood Pressure 112/80 110/68 Blood Pressure 128/79 [Right Arm Supine] O2 Sat by Pulse 97 97 99 Oximetry Medical Decision Making - Medical Decision Making Was pt. sent in by a medical professional or institution (, ROSALIE, GAS SYSTEMS WORKER, urgent care, hospital, or group home...) When possible be specific @ -No Did you speak to anyone other than the patient for history (EMS, parent, family, police, friend...)? What history was obtained from this source @ -No Did you review nursing and triage notes (agree or disagree)? Why? @ -I reviewed and agree with nursing and triage notes Were old charts reviewed (outside hosp., previous admission, EMS record, old EKG, old radiological studies, urgent care reports/EKG's, group home records)? Report findings @ -No old charts were reviewed Differential Diagnosis (chest pain, altered mental status, abdominal pain women, abdominal pain men, vaginal bleeding, weakness, fever, dyspnea, syncope, headache, dizziness, GI bleed, back pain, seizure, CVA, palpatations, mental health)? @ -Cellulitis, upper respiratory infection, DKA, sepsis. This list is not meant to be all-inclusive EKG interpreted by me (3pts min.). @ -As above X-rays interpreted by me (1pt min.). @ -None done CT interpreted by me (1pt min.). @ -None done U/S interpreted by me (1pt. min.). @ -None done What testing was considered but not performed or refused? (CT, X-rays, U/S, labs)? Why? @ -None What meds were considered but not given or refused? Why? @ -None Did you discuss the management of the patient with other professionals (professionals i.e. ROSALIE Flaherty, GAS SYSTEMS WORKER, lab, RT, psych nurse, director social service, biotech production specialist, teacher, customer service officer, housing case manager)? Give summary @ -No Was smoking cessation discussed for >3mins.? @ -No Was critical care preformed (if so, how long)? @ -No Were there social determinants of health that impacted care today? How? (Homelessness, low income, unemployed, alcoholism, drug addiction, transportation, low edu. Level, literacy, decrease access to med. care, penitentiary, rehab)? @ -No Was there de-escalation of care discussed even if they declined (Discuss DNR or withdrawal of care, Hospice)? DNR status @ -No What co-morbidities impacted this encounter? (DM, HTN, Smoking, COPD, CAD, Cancer, CVA, ARF, Chemo, Hep., AIDS, mental health diagnosis, sleep apnea, morbid obesity)? @ -None] Was patient admitted / discharged? Hospital course, mention meds given and route, prescriptions, significant lab abnormalities, going to OR and other pertinent info. @ -This is a 51-year-old female who presents for not feeling well after recent incision and drainage. Patient has draining abscess which is indurated with surrounding cellulitis. Mild leukocytosis of 14.0. She is afebrile no vomiting. No tachycardia. There minimal acidosis without anion gap. She is hyperglycemic at 510. Wound was cultured blood cultures obtained. Patient given Rocephin, IV insulin, saline bolus with improvement of blood sugar. She is in stable medical condition for discharge. She will be discharged with Keflex and she'll continue to take Bactrim. Undiagnosed new problem with uncertain prognosis? @ -[No] Drug Therapy requiring intensive monitoring for toxicity (Heparin, Nitro, Insulin, Cardizem)? @ -[No] Were any procedures done? @ -[No] Diagnosis/symptom? @ -Hyperglycemia, abscess, cellulitis Acute, or Chronic, or Acute on Chronic? @ -Acute Uncomplicated (without systemic symptoms) or Complicated (systemic symptoms)? @ -Uncomplicated Side effects of treatment? @ -[No] Exacerbation, Progression, or Severe Exacerbation? @ -[No] Poses a threat to life or bodily function? How? (Chest pain, USA, NM, pneumonia, PE, COPD, DKA, ARF, appy, cholecystitis, CVA, Diverticulitis, Homicidal, Suicidal, threat to staff... and all critical care pts) @ -[No] Dr. Huynh is my attending - Lab Data Result diagrams: 09/07/22 23:59 09/07/22 23:59 Lab Results 09/07/22 09/07/22 09/08/22 Range/Units 23:59 23:59 03:55 WBC 14.0 H (3.8-10.6) k/uL RBC 4.61 (3.80-5.40) m/uL Hgb 11.8 (11.4-16.0) gm/dL Hct 38.2 (34.0-46.0) % MCV 82.9 (80.0-100.0) fL MCH 25.6 (25.0-35.0) pg MCHC 30.9 L (31.0-37.0) g/dL RDW 17.8 H (11.5-15.5) % Plt Count 794 H (150-450) k/uL MPV 7.5 Neutrophils % 83 % Lymphocytes % 11 % Monocytes % 4 % Eosinophils % 1 % Basophils % 0 % Neutrophils # 11.6 H (1.3-7.7) k/uL Lymphocytes # 1.6 (1.0-4.8) k/uL Monocytes # 0.6 (0-1.0) k/uL Eosinophils # 0.1 (0-0.7) k/uL Basophils # 0.0 (0-0.2) k/uL Hypochromasia Slight Anisocytosis Slight Microcytosis Slight Sodium 129 L (137-145) mmol/L Potassium 4.6 (3.5-5.1) mmol/L Chloride 96 L (98-107) mmol/L Carbon Dioxide 21 L (22-30) mmol/L Anion Gap 12 mmol/L BUN 20 H (7-17) mg/dL Creatinine 0.80 (0.52-1.04) mg/dL Est GFR (CKD-EPI)AfAm >90 (>60 ml/min/1.73 sqM) Est GFR (CKD-EPI)NonAf 87 (>60 ml/min/1.73 sqM) Glucose 510 H* (74-99) mg/dL POC Glucose (mg/dL) 318 H (70-110) mg/dL POC Glu Rn Burn ID Khanh Simon Calcium 9.0 (8.4-10.2) mg/dL Total Bilirubin 0.4 (0.2-1.3) mg/dL AST 18 (14-36) U/L ALT 14 (4-34) U/L Alkaline Phosphatase 159 H (38-126) U/L Total Protein 6.1 L (6.3-8.2) g/dL Albumin 3.0 L (3.5-5.0) g/dL Disposition Clinical Impression: Cellulitis and abscess of lower extremity, Hyperglycemia Disposition: HOME SELF-CARE Condition: Good Instructions (If sedation given, give patient instructions): Cellulitis (ED), Abscess (ED) Additional Instructions: Take medication as directed. Please continue Bactrim. It is important to cont rol your blood sugar. Return to emergency department if you experience new, concerning, or worsening symptoms. Prescriptions: Cephalexin [Keflex] 500 mg PO Q6HR #40 cap Is patient prescribed a controlled substance at d/c from ED?: No Referrals: Guillermo Cerda MD [Primary Care Provider] - 1-2 days
[2022-09-08 06:04] VITALS: BP 110/68; PULSE 69; RESP 14
== END 2022-09-08 04:24 | disposition home or self-care (01) ==
LOC: EC 21:03
DX: L03.119 Cellulitis of unspecified part of limb (principal); E11.65 Type 2 diabetes mellitus with hyperglycemia; I10 Essential (primary) hypertension; E78.5 Hyperlipidemia, unspecified; K21.9 Gastro-esophageal reflux disease without esophagitis; Z79.899 Other long term (current) drug therapy; Z87.891 Personal history of nicotine dependence; Z88.8 Allergy status to other drugs, medicaments and biological substances
CPT/HCPCS: 36415 ×2; 80053; 85025; 87040 ×2; 87070; 87205; 99283; 96374; 96375 ×3; 96361 ×2; J2405; J0696; J1885

== ENCOUNTER 2022-09-15 00:57 | Emergency (ER) | payer MEDICARE ==
[2022-09-15 01:05] LABS: Glucose,Whole Blood >600 mg/dL (70-110)
[2022-09-15] MEDS ORDERED: SODIUM CHLORIDE 0.9% 1,000 ML IV STA ×2 (01:09→01:46)
[2022-09-15] MEDS ORDERED: ONDANSETRON 4 MG/2 ML VIAL IVP STA (01:09)
[2022-09-15 01:24] LABS: Anisocytosis Slight; Basophils % (A) 0 %; Eosinophils # (A) 0.1 k/uL (0-0.7); Eosinophils % (A) 1 %; HCT 39.3 % (34.0-46.0); HGB 11.7 gm/dL (11.4-16.0); Hypochromasia Marked; Lymphocytes # (A) 2.3 k/uL (1.0-4.8); Lymphocytes % (A) 21 %; MCH 25.5 pg (25.0-35.0); MCHC 29.8 g/dL (31.0-37.0); MCV 85.4 fL (80.0-100.0); Mean Platelet Volume 7.3; Microcytosis Slight; Monocytes # (A) 0.4 k/uL (0-1.0); Monocytes % (A) 4 %; Neutrophils # (A) 8.2 k/uL (1.3-7.7); Neutrophils % (A) 73 %; Platelet Count 841 k/uL (150-450); RDW 17.7 % (11.5-15.5); WBC 11.2 k/uL (3.8-10.6)
[2022-09-15 01:35] LABS: ALT 19 U/L (4-34); African American GFR (CKD) >90 (>60 ml/min/1.73 sqM); Albumin 3.2 g/dL (3.5-5.0); Amylase 40 U/L (30-110); Anion Gap 14 mmol/L; Blood Urea Nitrogen 12 mg/dL (7-17); Calcium 8.3 mg/dL (8.4-10.2); Carbon Dioxide 21 mmol/L (22-30); Chloride 89 mmol/L (98-107); Lipase 355 U/L (23-300); Non-African American GFR(CKD) 84 (>60 ml/min/1.73 sqM); Sodium 124 mmol/L (137-145); Total Bilirubin 0.5 mg/dL (0.2-1.3); Total Protein 6.2 g/dL (6.3-8.2)
[2022-09-15 01:38] LABS: VBG PH 7.37 (7.31-7.41)
[2022-09-15 01:46] LABS: AST 27 U/L (14-36); Alkaline Phosphatase 141 U/L (38-126); Glucose 829 mg/dL (74-99); Potassium 4.5 mmol/L (3.5-5.1)
[2022-09-15 02:27] LABS: Prothrombin Time 10.3 sec (9.0-12.0)
[2022-09-15] MEDS ORDERED: KETOROLAC 15 MG/ML 1 ML VIAL IVP STA (02:30)
--- NOTE | 2022-09-15 02:44 | XR ---
EXAM: XR Chest, 1 View CLINICAL HISTORY: ITS.REASON XR Reason: abdominal pain TECHNIQUE: Frontal view of the chest. COMPARISON: No relevant prior studies available. FINDINGS: Lungs: No consolidation or mass. Pleural space: No acute findings Heart: cardiomegaly. Bones/joints: No acute findings. IMPRESSION: No acute cardiopulmonary process.
[2022-09-15 02:53] LABS: Appearance,Urine Clear (Clear); Bacteria,Urine Rare /hpf; Bilirubin,Urine Negative (Negative); Blood,Urine Trace (Negative); Color,Urine Colorless; Glucose,Urine (UA) 4+ (Negative); Ketones,Urine Negative (Negative); Leukocyte Esterase,Urine Small (Negative); Nitrite,Urine Negative (Negative); Protein,Urine Negative (Negative); RBC,Urine 3 /hpf (0-5); Specific Gravity,Urine 1.022 (1.001-1.035); Squamous Epithelial Cell,Urine 1 /hpf (0-4); Urobilinogen,Urine <2.0 mg/dL (<2.0); WBC,Urine 5 /hpf (0-5)
[2022-09-15 02:59] LABS: Glucose,Whole Blood 576 mg/dL (70-110)
[2022-09-15] MEDS ORDERED: INSULIN ASPART (NovoLOG) 100 UNIT/ML VIAL SQ ONE ×3 (03:03→06:14)
[2022-09-15 03:53] LABS: Glucose,Whole Blood 572 mg/dL (70-110)
[2022-09-15] MEDS ORDERED: INSULIN DETEMIR (LEVEMIR) 100 UNIT/ML SYR SQ STA (04:19)
[2022-09-15 05:04] LABS: Glucose,Whole Blood 401 mg/dL (70-110)
--- NOTE | 2022-09-15 06:30 | ED ---
General Adult HPI - General Chief complaint: Weakness Stated complaint: Pain All over, Vomiting, high blood sugar Time Seen by Provider: 09/15/22 01:09 Source: patient, EMS, RN notes reviewed, old records reviewed Mode of arrival: EMS Limitations: no limitations - History of Present Illness Initial comments: Patient is a 51-year-old female with past medical history remarkable for insulin dependent diabetes. Medications that she has been without her insulin for the last week, hypertension, hyperlipidemia presents emergency Department complaining of nausea with no emesis, decreased appetite, as well as high blood sugars. States she has been without her insulin for a week. Denies any pain and being a urine blood in her urine. Denies diarrhea. Denies fevers or chills. Denies chest pain, shortness of breath, cough. Denies any other acute complaints at this time. Presents over concern for elevated blood sugars. Does complain of intermittent nausea. This is somewhat chronic for the patient. Patient does have a history of pancreatitis. - Related Data Home Medications Medication Instructions Recorded Confirmed Atorvastatin [Lipitor] 80 mg PO HS 06/25/19 03/03/22 lisinopriL 40 mg PO DAILY 09/24/20 03/03/22 metFORMIN HCL [Glucophage] 500 mg PO DAILY 09/24/20 03/03/22 traZODone HCL 50 - 100 mg PO HS PRN 01/11/21 03/03/22 Ergocalciferol (Vitamin D2) 1,250 mcg PO TU 03/03/21 03/03/22 [Drisdol (50,000 Iu)] Albuterol Inhaler [Ventolin Hfa 2 puff INHALATION RT-QID PRN 07/28/21 03/03/22 Inhaler] Esomeprazole Magnesium [NexIUM] 20 mg PO DAILY 01/30/22 03/03/22 Previous Rx's Medication Instructions Recorded INSULIN ASPART (NovoLOG) [NovoLOG 30 unit SQ AC-TID #10 ml 02/06/22 (formulary)] Insulin Detemir (Levemir) [Levemir] 90 unit SQ DAILY@0700 30 Days #1 02/06/22 pen Doxycycline Hyclate 100 mg PO BID 10 Days #20 tab 03/08/22 Sulfamethox-Tmp 800-160Mg [Bactrim 1 tab PO Q12HR 10 Days #20 tab 04/29/22 DS 800-160 mg] Sulfamethox-Tmp 800-160Mg [Bactrim 1 tab PO Q12HR #28 tab 09/01/22 DS 800-160 mg] Cephalexin [Keflex] 500 mg PO Q6HR #40 cap 09/08/22 Insulin Aspart [NovoLOG] 30 units SQ AC-TID 30 Days #10 ml 09/15/22 Insulin Detemir (Levemir) [Levemir] 90 unit SQ DAILY 30 Days #1 pen 09/15/22 Allergies Allergy/AdvReac Type Severity Reaction Status Date / Time levofloxacin [From Levaquin] Allergy Rash/Hives Verified 09/07/22 21:16 Review of Systems ROS Statement: Those systems with pertinent positive or pertinent negative responses have been documented in the HPI. Review of Systems: CONST: Denies fever EYES: Denies blurry vision ENT: Denies nasal congestion C/V: Denies Chest pain RESP: Denies shortness of breath GI: Denies abdominal pain : Denies dysuria SKIN: Denies rash. MSK: Denies joint pain. NEURO: Denies headache ROS Other: All systems not noted in ROS Statement are negative. Past Medical History Past Medical History: Diabetes Mellitus, GERD/Reflux, Hyperlipidemia, Hypertension, Syncope Additional Past Medical History / Comment(s): Pt recently admitted to [facility] on 07/21/21 with uncontrolled IDDM and hyperkalemia. Other hx: Recurrent pancreatitis, hypertriglyceridemia, elevated lipase, IDDM type II, UTI, chronic low back pain, bulging discs, dental abscesses in past. History of Any Multi-Drug Resistant Organisms: MRSA Date of last positivie culture/infection: 04/29/22 MDRO Source:: Buttock Past Surgical History: Tubal Ligation Additional Past Surgical History / Comment(s): Age 7 had VSD repair Past Anesthesia/Blood Transfusion Reactions: No Reported Reaction Past Psychological History: No Psychological Hx Reported Smoking Status: Former smoker Past Alcohol Use History: None Reported Past Drug Use History: None Reported - Past Family History Mother Family Medical History: No Reported History Additional Family Medical History / Comment(s): Mother was healthy. She is , pt cannot recall cause of . Father Family Medical History: Pneumonia Additional Family Medical History / Comment(s): Father at the age of 67yrs from pneumonia General Exam - General Exam Comments Initial Comments: General: Appears in no acute distress. HEAD: Normal with no signs of head trauma. EYES: PERRLA, EOMI, conjunctiva normal, no discharge. ENT: Hearing grossly intact, normal oropharynx. RESPIRATORY: Clear breath sounds bilaterally. No wheezes, rales, or rhonchi. C/V: Regular rate and rhythm. S1 and S2 auscultated, peripheral pulses 2+ and intact throughout ABD: Abd is soft, nontender, nondistended EXT: Normal range of motion, no obvious deformity SKIN: No rashes or lesions observed on exposed skin. NEURO: Alert and oriented x 4. Limitations: no limitations Course Vital Signs 09/15/22 09/15/22 00:59 06:43 Temperature 98.8 F 97.9 F Pulse Rate 66 76 Respiratory 18 16 Rate Blood Pressure 140/70 133/74 O2 Sat by Pulse 97 97 Oximetry Medical Decision Making - Medical Decision Making Was pt. sent in by a medical professional or institution (, PA, ACCOUNT CONSULTANT, urgent care, hospital, or intermediate...) When possible be specific @ -No Did you speak to anyone other than the patient for history (EMS, parent, family, police, friend...)? What history was obtained from this source @ -No Did you review nursing and triage notes (agree or disagree)? Why? @ -I reviewed and agree with nursing and triage notes Were old charts reviewed (outside hosp., previous admission, EMS record, old EKG, old radiological studies, urgent care reports/EKG's, intermediate records)? Report findings @ -Old charts including prescriptions were reviewed. Differential Diagnosis (chest pain, altered mental status, abdominal pain women, abdominal pain men, vaginal bleeding, weakness, fever, dyspnea, syncope, he adache, dizziness, GI bleed, back pain, seizure, CVA, palpatations, mental health, musculoskeletal)? @ -Uncontrolled diabetes, DKA, pancreatitis, gastritis. This list is not all inclusive. EKG interpreted by me (3pts min.). @ -As above X-rays interpreted by me (1pt min.). @ -Chest x-ray revealed no evidence of acute cardiopulmonary process. CT interpreted by me (1pt min.). @ -None done U/S interpreted by me (1pt. min.). @ -None done What testing was considered but not performed or refused? (CT, X-rays, U/S, labs)? Why? @ -None What meds were considered but not given or refused? Why? @ -None Did you discuss the management of the patient with other professionals (professionals i.e. , PA, ACCOUNT CONSULTANT, lab, RT, psych nurse, child welfare social worker, wire drawing die maker, teacher, environmental health officer, nurse case management)? Give summary @ -No Was smoking cessation discussed for >3mins.? @ -No Was critical care preformed (if so, how long)? @ -No Were there social determinants of health that impacted care today? How? (Homelessness, low income, unemployed, alcoholism, drug addiction, transportation, low edu. Level, literacy, decrease access to med. care, alf, rehab)? @ -No Was there de-escalation of care discussed even if they declined (Discuss DNR or withdrawal of care, Hospice)? DNR status @ -No What co-morbidities impacted this encounter? (DM, HTN, Smoking, COPD, CAD, Cancer, CVA, ARF, Chemo, Hep., AIDS, mental health diagnosis, sleep apnea, morbid obesity)? @ -Insulin dependent diabetes Was patient admitted / discharged? Hospital course, mention meds given and route, prescriptions, significant lab abnormalities, going to OR and other pertinent info. @ -Based on the patient's presentation and physical exam, I'm concerned for uncontrolled diabetes for the patient. Exam is relatively unremarkable. Vital signs within acceptable limits. We will obtain DKA labs. She was in agreement this plan. She'll be given 2 L fluid bolus again. She is also complaining of some mild nausea and she will receive IV Zofran as well as IV Toradol for pain. EKG showed no signs of acute ischemia. Imaging is unremarkable. Patient's labs do reveal a hyperglycemia of 829, as well as a corrected sodium of 135. Pat ient's labs also show a mild increase in her lipase to 355 which is very low for the patient. Patient has presented in the thousands previously with severe exacerbations. Acetone is positive, however no ketones in the urine and no anion gap. Following IV fluids, patient's blood sugar is 576. Continue to attempt to lower the patient's blood sugar. She saw any oral intake and feels well otherwise. Our goal will be to decrease the patient's blood sugar with insulin, and discharge home. States that she has no way to get her insulin prescription of the weekend. 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 She was in agreement this plan. Following multiple insulin administrations, we were able to decrease her insulin down to 400. We started her on her long-acting. She is still tolerating oral intake. She has no acute complaints at this time. She'll be discharged home with her new prescriptions and instructions to return if any worsening symptoms. She was in agreement this plan. I will provide the patient with a prescription for insulin. I instructed the patient to follow up with their PCP in the next 1-3 days. I explained that the patient should return to the emergency department if they experience any worsening symptoms. Strict return precautions were discussed with the patient. T he patient expressed understanding of these instructions. I answered all questions that the patient had. The patient was discharged home in good condition with their prescriptions and follow up information. Undiagnosed new problem with uncertain prognosis? @ -No Drug Therapy requiring intensive monitoring for toxicity (Heparin, Nitro, Insulin, Cardizem)? @ -No Were any procedures done? @ -No Diagnosis/symptom? @ -Uncontrolled insulin-dependent diabetes, medication refill Acute, or Chronic, or Acute on Chronic? @ -Acute Uncomplicated (without systemic symptoms) or Complicated (systemic symptoms)? @ -Complicated Side effects of treatment? @ -No Exacerbation, Progression, or Severe Exacerbation? @ -No Poses a threat to life or bodily function? How? (Chest pain, [place], NC, pneumonia, PE, COPD, DKA, ARF, appy, cholecystitis, CVA, Diverticulitis, Homicidal, Suicidal, threat to staff... and all critical care pts) @ -No - Lab Data Result diagrams: 09/15/22 01:08 09/15/22 01:08 Lab Results 09/15/22 09/15/22 09/15/22 Range/Units 01:01 01:08 01:08 WBC 11.2 H (3.8-10.6) k/uL RBC 4.60 (3.80-5.40) m/uL Hgb 11.7 (11.4-16.0) gm/dL Hct 39.3 (34.0-46.0) % MCV 85.4 (80.0-100.0) fL MCH 25.5 (25.0-35.0) pg MCHC 29.8 L (31.0-37.0) g/dL RDW 17.7 H (11.5-15.5) % Plt Count 841 H (150-450) k/uL MPV 7.3 Neutrophils % 73 % Lymphocytes % 21 % Monocytes % 4 % Eosinophils % 1 % Basophils % 0 % Neutrophils # 8.2 H (1.3-7.7) k/uL Lymphocytes # 2.3 (1.0-4.8) k/uL Monocytes # 0.4 (0-1.0) k/uL Eosinophils # 0.1 (0-0.7) k/uL Basophils # 0.0 (0-0.2) k/uL Hypochromasia Marked Anisocytosis Slight Microcytosis Slight PT (9.0-12.0) sec INR (<1.2) APTT (22.0-30.0) sec VBG pH (7.31-7.41) VBG pCO2 (37-51) mmHg VBG HCO3 (24-28) mmol/L Sodium 124 L (137-145) mmol/L Potassium 4.5 (3.5-5.1) mmol/L Chloride 89 L (98-107) mmol/L Carbon Dioxide 21 L (22-30) mmol/L Anion Gap 14 mmol/L BUN 12 (7-17) mg/dL Creatinine 0.83 (0.52-1.04) mg/dL Est GFR (CKD-EPI)AfAm >90 (>60 ml/min/1.73 sqM) Est GFR (CKD-EPI)NonAf 84 (>60 ml/min/1.73 sqM) Glucose 829 H* (74-99) mg/dL POC Glucose (mg/dL) >600 H (70-110) mg/dL POC Glu Web Press Operator Apprentice ID John Thibodeaux Plasma Lactic Acid Travon (0.7-2.0) mmol/L Calcium 8.3 L (8.4-10.2) mg/dL Total Bilirubin 0.5 (0.2-1.3) mg/dL AST 27 (14-36) U/L ALT 19 (4-34) U/L Alkaline Phosphatase 141 H (38-126) U/L Total Protein 6.2 L (6.3-8.2) g/dL Albumin 3.2 L (3.5-5.0) g/dL Amylase 40 (30-110) U/L Lipase 355 H (23-300) U/L Urine Color Urine Appearance (Clear) Urine pH (5.0-8.0) Ur Specific [place] (1.001-1.035) Urine Protein (Negative) Urine Glucose (UA) (Negative) Urine Ketones (Negative) Urine Blood (Negative) Urine Nitrite (Negative) Urine Bilirubin (Negative) Urine Urobilinogen (<2.0) mg/dL Ur Leukocyte Esterase (Negative) Urine RBC (0-5) /hpf Urine WBC (0-5) /hpf Ur Squamous Epith Cells (0-4) /hpf Urine Bacteria (None) /hpf Acetone, Qual Positive (Negative) 09/15/22 09/15/22 09/15/22 Range/Units 01:09 01:09 01:09 WBC (3.8-10.6) k/uL RBC (3.80-5.40) m/uL Hgb (11.4-16.0) gm/dL Hct (34.0-46.0) % MCV (80.0-100.0) fL MCH (25.0-35.0) pg MCHC (31.0-37.0) g/dL RDW (11.5-15.5) % Plt Count (150-450) k/uL MPV Neutrophils % % Lymphocytes % % Monocytes % % Eosinophils % % Basophils % % Neutrophils # (1.3-7.7) k/uL Lymphocytes # (1.0-4.8) k/uL Monocytes # (0-1.0) k/uL Eosinophils # (0-0.7) k/uL Basophils # (0-0.2) k/uL Hypochromasia Anisocytosis Microcytosis PT 10.3 (9.0-12.0) sec INR 1.0 (<1.2) APTT 22.0 (22.0-30.0) sec VBG pH (7.31-7.41) VBG pCO2 (37-51) mmHg VBG HCO3 (24-28) mmol/L Sodium (137-145) mmol/L Potassium (3.5-5.1) mmol/L Chloride (98-107) mmol/L Carbon Dioxide (22-30) mmol/L Anion Gap mmol/L BUN (7-17) mg/dL Creatinine (0.52-1.04) mg/dL Est GFR (CKD-EPI)AfAm (>60 ml/min/1.73 sqM) Est GFR (CKD-EPI)NonAf (>60 ml/min/1.73 sqM) Glucose (74-99) mg/dL POC Glucose (mg/dL) (70-110) mg/dL POC Glu Web Press Operator Apprentice ID Plasma Lactic Acid Travon 1.9 (0.7-2.0) mmol/L Calcium (8.4-10.2) mg/dL Total Bilirubin (0.2-1.3) mg/dL AST (14-36) U/L ALT (4-34) U/L Alkaline Phosphatase (38-126) U/L Total Protein (6.3-8.2) g/dL Albumin (3.5-5.0) g/dL Amylase (30-110) U/L Lipase (23-300) U/L Urine Color Colorless Urine Appearance Clear (Clear) Urine pH 6.0 (5.0-8.0) Ur Specific [place] 1.022 (1.001-1.035) Urine Protein Negative (Negative) Urine Glucose (UA) 4+ H (Negative) Urine Ketones Negative (Negative) Urine Blood Trace H (Negative) Urine Nitrite Negative (Negative) Urine Bilirubin Negative (Negative) Urine Urobilinogen <2.0 (<2.0) mg/dL Ur Leukocyte Esterase Small H (Negative) Urine RBC 3 (0-5) /hpf Urine WBC 5 (0-5) /hpf Ur Squamous Epith Cells 1 (0-4) /hpf Urine Bacteria Rare H (None) /hpf Acetone, Qual (Negative) 09/15/22 09/15/22 09/15/22 Range/Units 01:27 02:57 03:52 WBC (3.8-10.6) k/uL RBC (3.80-5.40) m/uL Hgb (11.4-16.0) gm/dL Hct (34.0-46.0) % MCV (80.0-100.0) fL MCH (25.0-35.0) pg MCHC (31.0-37.0) g/dL RDW (11.5-15.5) % Plt Count (150-450) k/uL MPV Neutrophils % % Lymphocytes % % Monocytes % % Eosinophils % % Basophils % % Neutrophils # (1.3-7.7) k/uL Lymphocytes # (1.0-4.8) k/uL Monocytes # (0-1.0) k/uL Eosinophils # (0-0.7) k/uL Basophils # (0-0.2) k/uL Hypochromasia Anisocytosis Microcytosis PT (9.0-12.0) sec INR (<1.2) APTT (22.0-30.0) sec VBG pH 7.37 (7.31-7.41) VBG pCO2 44 (37-51) mmHg VBG HCO3 25 (24-28) mmol/L Sodium (137-145) mmol/L Potassium (3.5-5.1) mmol/L Chloride (98-107) mmol/L Carbon Dioxide (22-30) mmol/L Anion Gap mmol/L BUN (7-17) mg/dL Creatinine (0.52-1.04) mg/dL Est GFR (CKD-EPI)AfAm (>60 ml/min/1.73 sqM) Est GFR (CKD-EPI)NonAf (>60 ml/min/1.73 sqM) Glucose (74-99) mg/dL POC Glucose (mg/dL) 576 H 572 H (70-110) mg/dL POC Glu Web Press Operator Apprentice ID Noonan, Shannan Noonan, Shannan Plasma Lactic Acid [place] (0.7-2.0) mmol/L Calcium (8.4-10.2) mg/dL Total Bilirubin (0.2-1.3) mg/dL AST (14-36) U/L ALT (4-34) U/L Alkaline Phosphatase (38-126) U/L Total Protein (6.3-8.2) g/dL Albumin (3.5-5.0) g/dL Amylase (30-110) U/L Lipase (23-300) U/L Urine Color Urine Appearance (Clear) Urine pH (5.0-8.0) Ur Specific [place] (1.001-1.035) Urine Protein (Negative) Urine Glucose (UA) (Negative) Urine Ketones (Negative) Urine Blood (Negative) Urine Nitrite (Negative) Urine Bilirubin (Negative) Urine Urobilinogen (<2.0) mg/dL Ur Leukocyte Esterase (Negative) Urine RBC (0-5) /hpf Urine WBC (0-5) /hpf Ur Squamous Epith Cells (0-4) /hpf Urine Bacteria (None) /hpf Acetone, Qual (Negative) 09/15/22 Range/Units 05:02 WBC (3.8-10.6) k/uL RBC (3.80-5.40) m/uL Hgb (11.4-16.0) gm/dL Hct (34.0-46.0) % MCV (80.0-100.0) fL MCH (25.0-35.0) pg MCHC (31.0-37.0) g/dL RDW (11.5-15.5) % Plt Count (150-450) k/uL MPV Neutrophils % % Lymphocytes % % Monocytes % % Eosinophils % % Basophils % % Neutrophils # (1.3-7.7) k/uL Lymphocytes # (1.0-4.8) k/uL Monocytes # (0-1.0) k/uL Eosinophils # (0-0.7) k/uL Basophils # (0-0.2) k/uL Hypochromasia Anisocytosis Microcytosis PT (9.0-12.0) sec INR (<1.2) APTT (22.0-30.0) sec VBG pH (7.31-7.41) VBG pCO2 (37-51) mmHg VBG HCO3 (24-28) mmol/L Sodium (137-145) mmol/L Potassium (3.5-5.1) mmol/L Chloride (98-107) mmol/L Carbon Dioxide (22-30) mmol/L Anion Gap mmol/L BUN (7-17) mg/dL Creatinine (0.52-1.04) mg/dL Est GFR (CKD-EPI)AfAm (>60 ml/min/1.73 sqM) Est GFR (CKD-EPI)NonAf (>60 ml/min/1.73 sqM) Glucose (74-99) mg/dL POC Glucose (mg/dL) 401 H (70-110) mg/dL POC Glu Web Press Operator Apprentice ID Shannan Noonan Plasma Lactic Acid [place] (0.7-2.0) mmol/L Calcium (8.4-10.2) mg/dL Total Bilirubin (0.2-1.3) mg/dL AST (14-36) U/L ALT (4-34) U/L Alkaline Phosphatase (38-126) U/L Total Protein (6.3-8.2) g/dL Albumin (3.5-5.0) g/dL Amylase (30-110) U/L Lipase (23-300) U/L Urine Color Urine Appearance (Clear) Urine pH (5.0-8.0) Ur Specific [place] (1.001-1.035) Urine Protein (Negative) Urine Glucose (UA) (Negative) Urine Ketones (Negative) Urine Blood (Negative) Urine Nitrite (Negative) Urine Bilirubin (Negative) Urine Urobilinogen (<2.0) mg/dL Ur Leukocyte Esterase (Negative) Urine RBC (0-5) /hpf Urine WBC (0-5) /hpf Ur Squamous Epith Cells (0-4) /hpf Urine Bacteria (None) /hpf Acetone, Qual (Negative) - EKG Data -: EKG Interpreted by Me EKG Comments: 12-lead Electrocardiogram Interpretation Note EKG was reviewed and interpreted by myself. 12-lead ECG performed at 0222 is interpreted by me as revealing normal sinus rhythm at a rate of 57 beats per minute. [place] is normal. MI interval is 152 ms, QRS duration is 94 ms, QTc is 431 ms.. There were no ST or T wave abnormalities to suggest myocardial is chemia or injury. R wave progression across the precordium was satisfactory. By my interpretation this EKG is non-diagnostic for acute ischemia. Disposition Clinical Impression: Uncontrolled diabetes mellitus, Hyperglycemia, Medication refill Disposition: HOME SELF-CARE Condition: Good Prescriptions: Insulin Detemir (Levemir) [Levemir] 90 unit SQ DAILY 30 Days #1 pen Insulin Aspart [NovoLOG] 30 units SQ AC-TID 30 Days #10 ml Is patient prescribed a controlled substance at d/c from ED?: No Referrals: Guillermo Cerda MD [Primary Care Provider] - 1-2 days Time of Disposition: 06:30
[2022-09-15 06:44] VITALS: BP 133/74; PULSE 76; RESP 16; TEMP 97.9
== END 2022-09-15 06:44 | disposition home or self-care (01) ==
LOC: EC 00:57
DX: E11.65 Type 2 diabetes mellitus with hyperglycemia (principal); Z76.0 Encounter for issue of repeat prescription; I10 Essential (primary) hypertension; K21.9 Gastro-esophageal reflux disease without esophagitis; E78.5 Hyperlipidemia, unspecified; Z87.891 Personal history of nicotine dependence; Z88.1 Allergy status to other antibiotic agents; Z79.84 Long term (current) use of oral hypoglycemic drugs; Z79.899 Other long term (current) drug therapy
CPT/HCPCS: 36415; 93005; 80053; 82150; 82803; 82009; 83605; 83690; 85025; 85610; 85730; 81001; 71045; 99285; 96374; 96375; 96361 ×2; J2405; J1885

== ENCOUNTER 2022-09-27 07:06 | Emergency (ER) | payer MEDICARE ==
[2022-09-27 07:21] VITALS: RESP 18
[2022-09-27 07:30] LABS: Glucose,Whole Blood 556 mg/dL (70-110)
--- NOTE | 2022-09-27 07:37 | ED ---
General Adult HPI - General Chief complaint: Recheck/Abnormal Lab/Rx Stated complaint: Hyperglycemia Time Seen by Provider: 09/27/22 07:08 Source: patient, EMS Mode of arrival: EMS Limitations: no limitations - History of Present Illness Initial comments: Dictation was produced using [employer] dictation software. please excuse any grammatical, word or spelling errors. Chief Complaint: 52-year-old female presents emergency Department hyperglycemia History of Present Illness: Is a 52-year-old female presents emergency department for hyperglycemia. Patient is well-known to emergency department for multiple visitations. This is her fourth visit in the last 4 weeks. Presents to the ER for elevated blood glucose. Patient states that she is insulin- dependent diabetic. She reports that she takes her medications at this time however she states that she is running out. Has not a chance to try to follow- up with her primary care doctor for outpatient management of hyperglycemia. Patient has chronic total body pain states that her whole body hurts. She does complain of sore throat and runny nose. Denies any obvious sick contacts. Denies any fever or constitutional symptoms. The ROS documented in this emergency department record has been reviewed and confirmed by me. Those systems with pertinent positive or negative responses have been documented in the HPI. All other systems are other negative and/or noncontributory. - Related Data Home Medications Medication Instructions Recorded Confirmed Atorvastatin [Lipitor] 80 mg PO HS 06/25/19 03/03/22 lisinopriL 40 mg PO DAILY 09/24/20 03/03/22 metFORMIN HCL [Glucophage] 500 mg PO DAILY 09/24/20 03/03/22 traZODone HCL 50 - 100 mg PO HS PRN 01/11/21 03/03/22 Ergocalciferol (Vitamin D2) 1,250 mcg PO TU 03/03/21 03/03/22 [Drisdol (50,000 Iu)] Albuterol Inhaler [Ventolin Hfa 2 puff INHALATION RT-QID PRN 07/28/21 03/03/22 Inhaler] Esomeprazole Magnesium [NexIUM] 20 mg PO DAILY 01/30/22 03/03/22 Previous Rx's Medication Instructions Recorded INSULIN ASPART (NovoLOG) [NovoLOG 30 unit SQ AC-TID #10 ml 02/06/22 (formulary)] Insulin Detemir (Levemir) [Levemir] 90 unit SQ DAILY@0700 30 Days #1 02/06/22 pen Doxycycline Hyclate 100 mg PO BID 10 Days #20 tab 03/08/22 Sulfamethox-Tmp 800-160Mg [Bactrim 1 tab PO Q12HR 10 Days #20 tab 04/29/22 DS 800-160 mg] Sulfamethox-Tmp 800-160Mg [Bactrim 1 tab PO Q12HR #28 tab 09/01/22 DS 800-160 mg] Cephalexin [Keflex] 500 mg PO Q6HR #40 cap 09/08/22 Insulin Aspart [NovoLOG] 30 units SQ AC-TID 30 Days #10 ml 09/15/22 Insulin Detemir (Levemir) [Levemir] 90 unit SQ DAILY 30 Days #1 pen 09/15/22 Allergies Allergy/AdvReac Type Severity Reaction Status Date / Time levofloxacin [From Levaquin] Allergy Rash/Hives Verified 09/27/22 07:21 Review of Systems ROS Statement: Those systems with pertinent positive or pertinent negative responses have been documented in the HPI. ROS Other: All systems not noted in ROS Statement are negative. Past Medical History Past Medical History: Diabetes Mellitus, GERD/Reflux, Hyperlipidemia, Hypertension, Syncope Additional Past Medical History / Comment(s): Pt recently admitted to [facility] on 07/21/21 with uncontrolled IDDM and hyperkalemia. Other hx: Recurrent pancreatitis, hypertriglyceridemia, elevated lipase, IDDM type II, UTI, chronic low back pain, bulging discs, dental abscesses in past. History of Any Multi-Drug Resistant Organisms: MRSA Date of last positivie culture/infection: 04/29/22 MDRO Source:: Buttock Past Surgical History: Tubal Ligation Additional Past Surgical History / Comment(s): Age 7 had VSD repair Past Anesthesia/Blood Transfusion Reactions: No Reported Reaction Past Psychological History: No Psychological Hx Reported Smoking Status: Former smoker Past Alcohol Use History: None Reported Past Drug Use History: None Reported - Past Family History Mother Family Medical History: No Reported History Additional Family Medical History / Comment(s): Mother was healthy. She is , pt cannot recall cause of . Father Family Medical History: Pneumonia Additional Family Medical History / Comment(s): Father at the age of 67yrs from pneumonia General Exam - General Exam Comments Initial Comments: PHYSICAL EXAM: General Impression: Alert and oriented x3, not in acute distress HEENT: Normocephalic atraumatic, extra-ocular movements intact, pupils equal and reactive to light bilaterally, mucous membranes moist. Cardiovascular: Heart regular rate and rhythm Chest: Able to complete full sentences, no retractions, no tachypnea Abdomen: abdomen soft, non-tender, non-distended, no organomegaly Musculoskeletal: Pulses present and equal in all extremities, no peripheral edema Motor: no focal deficits noted Neurological: CN II-XII grossly intact, no focal motor or sensory deficits noted Skin: Intact with no visualized rashes Psych: Normal affect and mood Limitations: no limitations Course Vital Signs 09/27/22 09/27/22 09/27/22 07:11 09:00 10:55 Temperature 99.4 F Pulse Rate 69 63 77 Respiratory 18 18 18 Rate Blood Pressure 140/78 126/67 110/87 O2 Sat by Pulse 95 96 97 Oximetry Medical Decision Making - Medical Decision Making Was pt. sent in by a medical professional or institution (ROSALIE Flaherty, SPECIAL WARFARE OPERATOR, urgent care, hospital, or care home...) When possible be specific @ -No Did you speak to anyone other than the patient for history (EMS, parent, family, police, friend...)? What history was obtained from this source @ -No Did you review nursing and triage notes (agree or disagree)? Why? @ -I reviewed and agree with nursing and triage notes Were old charts reviewed (outside hosp., previous admission, EMS record, old EKG, old radiological studies, urgent care reports/EKG's, care home records)? Report findings @ -No old charts were reviewed Differential Diagnosis (chest pain, altered mental status, abdominal pain women, abdominal pain men, vaginal bleeding, musculoskeletal, weakness, fever, dyspnea, syncope, headache, dizziness, GI bleed, back pain, seizure, CVA, palpatations, mental health)? @ -Differential Weakness: Hypoglycemia, shock, sepsis, hyponatremia, anemia, infection, CO, ETOH, adverse medicine reaction, overdose, stroke, this is not meant to be an all-inclusive list. EKG interpreted by me (3pts min.). @ -None done X-rays interpreted by me (1pt min.). @ -None done CT interpreted by me (1pt min.). @ -None done U/S interpreted by me (1pt. min.). @ -None done What testing was considered but not performed or refused? (CT, X-rays, U/S, labs)? Why? @ -None What meds were considered but not given or refused? Why? @ -None Did you discuss the management of the patient with other professionals (professionals i.e. Dr., PA, SPECIAL WARFARE OPERATOR, lab, RT, psych nurse, social worker psychiatric, cement fittings maker, teacher, traffic police officer, upper caser)? Give summary @ -Case was discussed with patient's primary care physician, Dr. Cerda. He is told that patient has been in our emergency department on multiple occasions for hyperglycemia treatment. Was smoking cessation discussed for >3mins.? @ -No Was critical care preformed (if so, how long)? @ -No Were there social determinants of health that impacted care today? How? (Homelessness, low income, unemployed, alcoholism, drug addiction, transportation, low edu. Level, literacy, decrease access to med. care, alf, rehab)? @ -No Was there de-escalation of care discussed even if they declined (Discuss DNR or withdrawal of care, Hospice)? DNR status @ -No What co-morbidities impacted this encounter? (DM, HTN, Smoking, COPD, CAD, Cancer, CVA, ARF, Chemo, Hep., AIDS, mental health diagnosis, sleep apnea, morbid obesity)? @ -None Was patient admitted / discharged? Hospital course, mention meds given and route, prescriptions, significant lab abnormalities, going to OR and other pertinent info. @ -52 yo female presents to the emergency department for chief complaint of hyperglycemia. Patient reports compliance with her diabetes medications however discussion will she does so. Laboratory evaluation obtained. CBC remarkable. Sodium 126 secondary to pseudohyponatremia or hypoglycemia. Glucose corrected with insulin and fluids. Patient discharged. Undiagnosed new problem with uncertain prognosis? @ -No Drug Therapy requiring intensive monitoring for toxicity (Heparin, Nitro, Insulin, Cardizem)? @ -No Were any procedures done? @ -No Diagnosis/symptom? Acute, or Chronic, or Acute on Chronic? Uncomplicated (without systemic symptoms) or Complicated (systemic symptoms)? @ -Hyperglycemia Side effects of treatment? @ -No Exacerbation, Progression, or Severe Exacerbation? @ -No Poses a threat to life or bodily function? How? (Chest pain, USA, CO, pneumonia, PE, COPD, DKA, ARF, appy, cholecystitis, CVA, Diverticulitis, Homicidal, Suicidal, threat to staff... and all critical care pts) @ -No - Lab Data Result diagrams: 09/27/22 07:37 09/27/22 07:37 Lab Results 09/27/22 09/27/22 09/27/22 Range/Units 07:26 07:37 07:37 WBC 8.3 (3.8-10.6) k/uL RBC 4.90 (3.80-5.40) m/uL Hgb 13.0 (11.4-16.0) gm/dL Hct 40.4 (34.0-46.0) % MCV 82.5 (80.0-100.0) fL MCH 26.5 (25.0-35.0) pg MCHC 32.1 (31.0-37.0) g/dL RDW 17.8 H (11.5-15.5) % Plt Count 512 H (150-450) k/uL MPV 7.9 Neutrophils % 60 % Lymphocytes % 31 % Monocytes % 6 % Eosinophils % 2 % Basophils % 0 % Neutrophils # 5.0 (1.3-7.7) k/uL Lymphocytes # 2.5 (1.0-4.8) k/uL Monocytes # 0.5 (0-1.0) k/uL Eosinophils # 0.1 (0-0.7) k/uL Basophils # 0.0 (0-0.2) k/uL Hypochromasia Slight Anisocytosis Slight Microcytosis Slight Sodium 126 L (137-145) mmol/L Potassium 4.3 (3.5-5.1) mmol/L Chloride 92 L (98-107) mmol/L Carbon Dioxide 19 L (22-30) mmol/L Anion Gap 15 mmol/L BUN 21 H (7-17) mg/dL Creatinine 0.70 (0.52-1.04) mg/dL Est GFR (CKD-EPI)AfAm >90 (>60 ml/min/1.73 sqM) Est GFR (CKD-EPI)NonAf >90 (>60 ml/min/1.73 sqM) Glucose 607 H* (74-99) mg/dL POC Glucose (mg/dL) 556 H (70-110) mg/dL POC Glu Verify Rep ID Prisca Schreiber Calcium 8.9 (8.4-10.2) mg/dL Influenza Type A (PCR) (Not Detectd) Influenza Type B (PCR) (Not Detectd) RSV (PCR) (Not Detectd) SARS-CoV-2 (PCR) (Not Detectd) Group A Strep (PCR) (Not Detectd) 09/27/22 09/27/22 09/27/22 Range/Units 07:37 07:37 09:56 WBC (3.8-10.6) k/uL RBC (3.80-5.40) m/uL Hgb (11.4-16.0) gm/dL Hct (34.0-46.0) % MCV (80.0-100.0) fL MCH (25.0-35.0) pg MCHC (31.0-37.0) g/dL RDW (11.5-15.5) % Plt Count (150-450) k/uL MPV Neutrophils % % Lymphocytes % % Monocytes % % Eosinophils % % Basophils % % Neutrophils # (1.3-7.7) k/uL Lymphocytes # (1.0-4.8) k/uL Monocytes # (0-1.0) k/uL Eosinophils # (0-0.7) k/uL Basophils # (0-0.2) k/uL Hypochromasia Anisocytosis Microcytosis Sodium (137-145) mmol/L Potassium (3.5-5.1) mmol/L Chloride (98-107) mmol/L Carbon Dioxide (22-30) mmol/L Anion Gap mmol/L BUN (7-17) mg/dL Creatinine (0.52-1.04) mg/dL Est GFR (CKD-EPI)AfAm (>60 ml/min/1.73 sqM) Est GFR (CKD-EPI)NonAf (>60 ml/min/1.73 sqM) Glucose (74-99) mg/dL POC Glucose (mg/dL) 378 H (70-110) mg/dL POC Glu Verify Rep ID Madelyn Ruiz Calcium (8.4-10.2) mg/dL Influenza Type A (PCR) Not Detected (Not Detectd) Influenza Type B (PCR) Not Detected (Not Detectd) RSV (PCR) Not Detected (Not Detectd) SARS-CoV-2 (PCR) Not Detected (Not Detectd) Group A Strep (PCR) NOT DETECTED (Not Detectd) 09/27/22 Range/Units 11:39 WBC (3.8-10.6) k/uL RBC (3.80-5.40) m/uL Hgb (11.4-16.0) gm/dL Hct (34.0-46.0) % MCV (80.0-100.0) fL MCH (25.0-35.0) pg MCHC (31.0-37.0) g/dL RDW (11.5-15.5) % Plt Count (150-450) k/uL MPV Neutrophils % % Lymphocytes % % Monocytes % % Eosinophils % % Basophils % % Neutrophils # (1.3-7.7) k/uL Lymphocytes # (1.0-4.8) k/uL Monocytes # (0-1.0) k/uL Eosinophils # (0-0.7) k/uL Basophils # (0-0.2) k/uL Hypochromasia Anisocytosis Microcytosis Sodium (137-145) mmol/L Potassium (3.5-5.1) mmol/L Chloride (98-107) mmol/L Carbon Dioxide (22-30) mmol/L Anion Gap mmol/L BUN (7-17) mg/dL Creatinine (0.52-1.04) mg/dL Est GFR (CKD-EPI)AfAm (>60 ml/min/1.73 sqM) Est GFR (CKD-EPI)NonAf (>60 ml/min/1.73 sqM) Glucose (74-99) mg/dL POC Glucose (mg/dL) 290 H (70-110) mg/dL POC Glu Verify Rep ID Prisca Schreiber Calcium (8.4-10.2) mg/dL Influenza Type A (PCR) (Not Detectd) Influenza Type B (PCR) (Not Detectd) RSV (PCR) (Not Detectd) SARS-CoV-2 (PCR) (Not Detectd) Group A Strep (PCR) (Not Detectd) Disposition Clinical Impression: Hyperglycemia Disposition: HOME SELF-CARE Condition: Good Is patient prescribed a controlled substance at d/c from ED?: No Referrals: Guillermo Cerda MD [Primary Care Provider] - 1-2 days Time of Disposition: 12:04
[2022-09-27 07:54] LABS: Anisocytosis Slight; Basophils % (A) 0 %; Eosinophils # (A) 0.1 k/uL (0-0.7); Eosinophils % (A) 2 %; HCT 40.4 % (34.0-46.0); Hypochromasia Slight; Lymphocytes # (A) 2.5 k/uL (1.0-4.8); Lymphocytes % (A) 31 %; MCH 26.5 pg (25.0-35.0); MCHC 32.1 g/dL (31.0-37.0); MCV 82.5 fL (80.0-100.0); Mean Platelet Volume 7.9; Microcytosis Slight; Monocytes # (A) 0.5 k/uL (0-1.0); Monocytes % (A) 6 %; Neutrophils % (A) 60 %; Platelet Count 512 k/uL (150-450); RDW 17.8 % (11.5-15.5); WBC 8.3 k/uL (3.8-10.6)
[2022-09-27 08:03] LABS: African American GFR (CKD) >90 (>60 ml/min/1.73 sqM); Anion Gap 15 mmol/L; Blood Urea Nitrogen 21 mg/dL (7-17); Calcium 8.9 mg/dL (8.4-10.2); Carbon Dioxide 19 mmol/L (22-30); Chloride 92 mmol/L (98-107); Non-African American GFR(CKD) >90 (>60 ml/min/1.73 sqM); Potassium 4.3 mmol/L (3.5-5.1); Sodium 126 mmol/L (137-145)
[2022-09-27 08:17] LABS: Glucose 607 mg/dL (74-99)
[2022-09-27] MEDS ORDERED: INSULIN REGULAR 100 UNIT/ML VIAL (IV) IV ONE ×2 (08:28→10:03)
[2022-09-27] MEDS ORDERED: SODIUM CHLORIDE 0.9% 1,000 ML IV STA (08:28)
[2022-09-27 09:58] LABS: Glucose,Whole Blood 378 mg/dL (70-110)
[2022-09-27] MEDS ORDERED: ONDANSETRON 4 MG/2 ML VIAL IVP STA (10:05)
[2022-09-27] MEDS ORDERED: HYDROcodone/APAP 5-325MG 1 EACH TAB PO STA (10:05)
[2022-09-27 11:41] LABS: Glucose,Whole Blood 290 mg/dL (70-110)
[2022-09-27 12:15] VITALS: BP 136/83; PULSE 60; TEMP 98.7
== END 2022-09-27 12:19 | disposition home or self-care (01) ==
LOC: EC 07:06
DX: E11.65 Type 2 diabetes mellitus with hyperglycemia (principal); I10 Essential (primary) hypertension; E78.5 Hyperlipidemia, unspecified; K21.9 Gastro-esophageal reflux disease without esophagitis; Z20.822 Contact with and (suspected) exposure to COVID-19; Z79.84 Long term (current) use of oral hypoglycemic drugs; Z79.899 Other long term (current) drug therapy; Z88.1 Allergy status to other antibiotic agents; Z87.891 Personal history of nicotine dependence
CPT/HCPCS: 36415; 87651; 80048; 85025; 87636; 99285; 96374; 96361; J2405

== ENCOUNTER 2022-10-03 04:43 | Emergency (ER) | payer MEDICARE ==
[2022-10-03 04:52] LABS: Glucose,Whole Blood >600 mg/dL (70-110)
[2022-10-03] MEDS ORDERED: INSULIN REGULAR 100 UNIT/ML VIAL (IM/SQ) SQ ONE ×2 (04:52→06:09)
[2022-10-03] MEDS ORDERED: HYDROmorphone 1 MG/ML 1 ML SYRINGE IM STA (04:53)
--- NOTE | 2022-10-03 05:34 | ED ---
Recheck HPI - General Chief Complaint: Nausea/Vomiting/Diarrhea Stated Complaint: nausea,vomiting Time Seen by Provider: 10/03/22 04:46 Source: patient Mode of arrival: EMS Limitations: no limitations - History of Present Illness Initial Comments: This is a 52-year-old female to the to the emergency department for evaluation. Patient sent in today for evaluation of generalized body aches and pains elevated blood sugar. Patient is well-known to this hospital for similar complaints. Patient denies any new significant symptoms MD Complaint: abnormal lab (Elevated blood sugar), other (Generalized body aches and pains) Returns Today for: Called Because of Abnormal Lab/Test, persistent/worsening miguel n related to initial visit Symptoms Since Prior Visit: worsening pain Context: planned re-check, called for abnormal lab result Associated Symptoms: none Treatments Prior to Arrival: Given Pain Meds on - Related Data Home Medications Medication Instructions Recorded Confirmed Atorvastatin [Lipitor] 80 mg PO HS 06/25/19 03/03/22 lisinopriL 40 mg PO DAILY 09/24/20 03/03/22 metFORMIN HCL [Glucophage] 500 mg PO DAILY 09/24/20 03/03/22 traZODone HCL 50 - 100 mg PO HS PRN 01/11/21 03/03/22 Ergocalciferol (Vitamin D2) 1,250 mcg PO TU 03/03/21 03/03/22 [Drisdol (50,000 Iu)] Albuterol Inhaler [Ventolin Hfa 2 puff INHALATION RT-QID PRN 07/28/21 03/03/22 Inhaler] Esomeprazole Magnesium [NexIUM] 20 mg PO DAILY 01/30/22 03/03/22 Previous Rx's Medication Instructions Recorded INSULIN ASPART (NovoLOG) [NovoLOG 30 unit SQ AC-TID #10 ml 02/06/22 (formulary)] Insulin Detemir (Levemir) [Levemir] 90 unit SQ DAILY@0700 30 Days #1 02/06/22 pen Doxycycline Hyclate 100 mg PO BID 10 Days #20 tab 03/08/22 Sulfamethox-Tmp 800-160Mg [Bactrim 1 tab PO Q12HR 10 Days #20 tab 04/29/22 DS 800-160 mg] Sulfamethox-Tmp 800-160Mg [Bactrim 1 tab PO Q12HR #28 tab 09/01/22 DS 800-160 mg] Cephalexin [Keflex] 500 mg PO Q6HR #40 cap 09/08/22 Insulin Aspart [NovoLOG] 30 units SQ AC-TID 30 Days #10 ml 09/15/22 Insulin Detemir (Levemir) [Levemir] 90 unit SQ DAILY 30 Days #1 pen 09/15/22 Allergies Allergy/AdvReac Type Severity Reaction Status Date / Time levofloxacin [From Levaquin] Allergy Rash/Hives Verified 10/10/22 20:50 Review of Systems ROS Statement: Those systems with pertinent positive or pertinent negative responses have been documented in the HPI. ROS Other: All systems not noted in ROS Statement are negative. Past Medical History Past Medical History: Diabetes Mellitus, GERD/Reflux, Hyperlipidemia, Hypertension, Syncope Additional Past Medical History / Comment(s): Pt recently admitted to [facility] on 07/21/21 with uncontrolled IDDM and hyperkalemia. Other hx: Recurrent pancreatitis, hypertriglyceridemia, elevated lipase, IDDM type II, UTI, chronic low back pain, bulging discs, dental abscesses in past. History of Any Multi-Drug Resistant Organisms: MRSA Date of last positivie culture/infection: 04/29/22 MDRO Source:: Buttock Past Surgical History: Tubal Ligation Additional Past Surgical History / Comment(s): Age 7 had VSD repair Past Anesthesia/Blood Transfusion Reactions: No Reported Reaction Past Psychological History: No Psychological Hx Reported Smoking Status: Former smoker Past Alcohol Use History: None Reported Past Drug Use History: None Reported - Past Family History Mother Family Medical History: No Reported History Additional Family Medical History / Comment(s): Mother was healthy. She is , pt cannot recall cause of . Father Family Medical History: Pneumonia Additional Family Medical History / Comment(s): Father at the age of 67yrs from pneumonia General Exam Limitations: no limitations General appearance: alert, in no apparent distress Head exam: Present: atraumatic, normocephalic, normal inspection Eye exam: Present: normal appearance, PERRL, EOMI. Absent: scleral icterus, conjunctival injection, periorbital swelling ENT exam: Present: normal exam, mucous membranes moist Neck exam: Present: normal inspection. Absent: tenderness, meningismus, lymphadenopathy Respiratory exam: Present: normal lung sounds bilaterally. Absent: respiratory distress, wheezes, rales, rhonchi, stridor Cardiovascular Exam: Present: regular rate, normal rhythm, normal heart sounds. Absent: systolic murmur, diastolic murmur, rubs, gallop, clicks GI/Abdominal exam: Present: soft, normal bowel sounds. Absent: distended, tenderness, guarding, rebound, rigid Extremities exam: Present: normal inspection, full ROM, normal capillary refill. Absent: tenderness, pedal edema, joint swelling, calf tenderness Back exam: Present: normal inspection Neurological exam: Present: alert, oriented X3, CN II-XII intact Psychiatric exam: Present: normal affect, normal mood Skin exam: Present: warm, dry, intact, normal color. Absent: rash Course Vital Signs 10/03/22 10/03/22 10/03/22 04:45 04:50 06:00 Temperature 98.4 F 98.2 F Pulse Rate 66 60 Respiratory 18 16 Rate Blood Pressure 154/109 130/84 O2 Sat by Pulse 95 95 Oximetry 10/03/22 08:24 Temperature 97.6 F Pulse Rate 69 Respiratory 18 Rate Blood Pressure 135/78 O2 Sat by Pulse 98 Oximetry - Reevaluation(s) Reevaluation #1: 10/03/22 06:20 Medical records reviewed Reevaluation #2: 10/03/22 06:20 Symptoms improving blood sugar is improving Reevaluation #3: 10/03/22 06:20 Patient informed results questions answered Reevaluation #4: 10/03/22 05:34 Was pt. sent in by a medical professional or institution? @ -no Did you speak to anyone other than the patient for history? @ -no Did you review nursing and triage notes? @ -agree Were old charts reviewed? @ -yes Differential Diagnosis? @ -prior EKG interpreted by me (3pts min.)? @ -no X-rays interpreted by me (1pt min.)? @ -no CT interpreted by me (1pt min.)? @ -no U/S interpreted by me (1pt. min.)? @ -no What testing was considered but not performed? (CT, X-rays, U/S, labs)? Why? @ -no What meds were considered but not given? Why? @ -no Did you discuss the management of the patient with other professionals? @ -no Did you reconcile home meds? @ -no Was smoking cessation discussed for >3mins.? @ -no Was critical care preformed (if so, how long)? @ -no Were there social determinants of health that impacted care today? How? (Homelessness, low income, unemployed, alcoholism, drug addiction, transportation, low edu. Level, literacy, decrease access to med. care, fdc, rehab)? @ -no Was there de-escalation of care discussed even if they declined? (Discuss DNR or withdrawal of care, Hospice)? @ -no What co-morbidities impacted this encounter? (DM, HTN, Smoking, COPD, CAD, Cancer, CVA, Hep., AIDS, mental health diagnosis, sleep apnea, morbid obesity)? @ -none Was patient admitted / discharged? @ -52 female to the emergency department for evaluation of persistent nausea vomiting elevated blood sugar and generalized pain chronic pain. Patient's improved pain is improved blood sugar improving, patient will continue to encourage oral intake of water and patient can be discharged home Discharge Undiagnosed new problem with uncertain prognosis? @ -no Drug Therapy requiring intensive monitoring for toxicity (Heparin, Nitro, Insulin, Cardizem)? @ -no Were any procedures done? @ -no Diagnosis/symptom? @ -Hypoglycemia and body pain Acute, or Chronic, or Acute on Chronic? @ -acute Uncomplicated (without systemic symptoms) or Complicated (systemic symptoms)? @ -complicated Side effects of treatment? @ -no Exacerbation, Progression, or Severe Exacerbation] @ -no Poses a threat to life or bodily function? @ -no Medical Decision Making - Medical Decision Making 52 female to the emergency department for evaluation of persistent nausea vomiting elevated blood sugar and generalized pain chronic pain. Patient's improved pain is improved blood sugar improving, patient will continue to encourage oral intake of water and patient can be discharged home - Lab Data Lab Results 10/03/22 10/03/22 10/03/22 Range/Units 04:49 05:44 06:07 POC Glucose (mg/dL) >600 H 597 H 544 H (70-110) mg/dL POC Glu Adaptive Physical Education Teacher BELINDA Carlson, Svetlana Carlson, Karolina Haskins Disposition Clinical Impression: Dehydration, Abdominal pain, Hyperglycemia, Chronic pain Disposition: HOME SELF-CARE Condition: Good Instructions (If sedation given, give patient instructions): Diabetic Hyperglycemia (ED) Is patient prescribed a controlled substance at d/c from ED?: No Referrals: Guillermo Cerda MD [Primary Care Provider] - 1-2 days Time of Disposition: 06:45
[2022-10-03 05:46] LABS: Glucose,Whole Blood 597 mg/dL (70-110)
[2022-10-03 06:09] LABS: Glucose,Whole Blood 544 mg/dL (70-110)
[2022-10-03 08:25] VITALS: BP 135/78; PULSE 69; RESP 18; TEMP 97.6
== END 2022-10-03 08:25 | disposition home or self-care (01) ==
LOC: EC 04:43
DX: E11.65 Type 2 diabetes mellitus with hyperglycemia (principal); E86.0 Dehydration; G89.29 Other chronic pain; R10.9 Unspecified abdominal pain; I10 Essential (primary) hypertension; E78.5 Hyperlipidemia, unspecified; K21.9 Gastro-esophageal reflux disease without esophagitis; Z79.4 Long term (current) use of insulin; Z79.84 Long term (current) use of oral hypoglycemic drugs; Z79.899 Other long term (current) drug therapy; Z88.1 Allergy status to other antibiotic agents; Z87.891 Personal history of nicotine dependence
CPT/HCPCS: 36415; 99285; 96372; J1170

== ENCOUNTER 2022-10-07 05:29 | Emergency (ER) | payer MEDICARE ==
[2022-10-07 05:41] VITALS: TEMP 98.3
[2022-10-07] MEDS ORDERED: INSULIN REGULAR 100 UNIT/ML VIAL (IM/SQ) SQ ONE (05:56)
[2022-10-07] MEDS ORDERED: SODIUM CHLORIDE 0.9% 1,000 ML IV STA (05:56)
[2022-10-07] MEDS ORDERED: INSULIN REGULAR 100 UNIT/ML VIAL (IV) IV ONE (05:56)
--- NOTE | 2022-10-07 06:06 | ED ---
Recheck HPI - General Chief Complaint: Shortness of Breath Stated Complaint: Chest Pain, hyperglycemia Time Seen by Provider: 10/07/22 05:43 Source: patient, RN notes reviewed, old records reviewed Mode of arrival: EMS Limitations: no limitations - History of Present Illness Initial Comments: This is a 52-year-old female to the emergency department for evaluation. Patient presents today for evaluation of chest pain, cough, elevated blood sugar. Patient is well-known to our ER for these exact similar same complaints. Patient states she's been out of her insulin secondary to her prescription not being filled. She believes the air may be affecting her breathing with cough and congestion. Runny nose. No fevers. MD Complaint: wound re-check -: hour(s) Returns Today for: Called Because of Abnormal Lab/Test, persistent/worsening pain related to initial visit Symptoms Since Prior Visit: no new symptoms Context: called for abnormal lab result Associated Symptoms: none Treatments Prior to Arrival: other - Related Data Home Medications Medication Instructions Recorded Confirmed Atorvastatin [Lipitor] 80 mg PO HS 06/25/19 03/03/22 lisinopriL 40 mg PO DAILY 09/24/20 03/03/22 metFORMIN HCL [Glucophage] 500 mg PO DAILY 09/24/20 03/03/22 traZODone HCL 50 - 100 mg PO HS PRN 01/11/21 03/03/22 Ergocalciferol (Vitamin D2) 1,250 mcg PO TU 03/03/21 03/03/22 [Drisdol (50,000 Iu)] Albuterol Inhaler [Ventolin Hfa 2 puff INHALATION RT-QID PRN 07/28/21 03/03/22 Inhaler] Esomeprazole Magnesium [NexIUM] 20 mg PO DAILY 01/30/22 03/03/22 Previous Rx's Medication Instructions Recorded INSULIN ASPART (NovoLOG) [NovoLOG 30 unit SQ AC-TID #10 ml 02/06/22 (formulary)] Insulin Detemir (Levemir) [Levemir] 90 unit SQ DAILY@0700 30 Days #1 02/06/22 pen Doxycycline Hyclate 100 mg PO BID 10 Days #20 tab 03/08/22 Sulfamethox-Tmp 800-160Mg [Bactrim 1 tab PO Q12HR 10 Days #20 tab 04/29/22 DS 800-160 mg] Sulfamethox-Tmp 800-160Mg [Bactrim 1 tab PO Q12HR #28 tab 09/01/22 DS 800-160 mg] Cephalexin [Keflex] 500 mg PO Q6HR #40 cap 09/08/22 Insulin Aspart [NovoLOG] 30 units SQ AC-TID 30 Days #10 ml 09/15/22 Insulin Detemir (Levemir) [Levemir] 90 unit SQ DAILY 30 Days #1 pen 09/15/22 Allergies Allergy/AdvReac Type Severity Reaction Status Date / Time levofloxacin [From Levaquin] Allergy Rash/Hives Verified 10/10/22 20:50 Review of Systems ROS Statement: Those systems with pertinent positive or pertinent negative responses have been documented in the HPI. ROS Other: All systems not noted in ROS Statement are negative. Past Medical History Past Medical History: Diabetes Mellitus, GERD/Reflux, Hyperlipidemia, Hypertension, Syncope Additional Past Medical History / Comment(s): Pt recently admitted to [facility] on 07/21/21 with uncontrolled IDDM and hyperkalemia. Other hx: Recurrent pancreatitis, hypertriglyceridemia, elevated lipase, IDDM type II, UTI, chronic low back pain, bulging discs, dental abscesses in past. History of Any Multi-Drug Resistant Organisms: MRSA Date of last positivie culture/infection: 04/29/22 MDRO Source:: Buttock Past Surgical History: Tubal Ligation Additional Past Surgical History / Comment(s): Age 7 had VSD repair Past Anesthesia/Blood Transfusion Reactions: No Reported Reaction Past Psychological History: No Psychological Hx Reported Smoking Status: Former smoker, Second hand smoke exposure, Vaper Past Alcohol Use History: None Reported Past Drug Use History: None Reported - Past Family History Mother Family Medical History: No Reported History Additional Family Medical History / Comment(s): Mother was healthy. She is , pt cannot recall cause of . Father Family Medical History: Pneumonia Additional Family Medical History / Comment(s): Father at the age of 67yrs from pneumonia General Exam General appearance: alert, in no apparent distress Head exam: Present: atraumatic, normocephalic, normal inspection Eye exam: Present: normal appearance, PERRL, EOMI. Absent: scleral icterus, conjunctival injection, periorbital swelling ENT exam: Present: normal exam, mucous membranes moist Neck exam: Present: normal inspection. Absent: tenderness, meningismus, lymphadenopathy Respiratory exam: Present: normal lung sounds bilaterally. Absent: respiratory distress, wheezes, rales, rhonchi, stridor Cardiovascular Exam: Present: regular rate, normal rhythm, normal heart sounds. Absent: systolic murmur, diastolic murmur, rubs, gallop, clicks GI/Abdominal exam: Present: soft, normal bowel sounds. Absent: distended, tenderness, guarding, rebound, rigid Extremities exam: Present: normal inspection, full ROM, normal capillary refill. Absent: tenderness, pedal edema, joint swelling, calf tenderness Back exam: Present: normal inspection Neurological exam: Present: alert, oriented X3, CN II-XII intact Psychiatric exam: Present: normal affect, normal mood Skin exam: Present: warm, dry, intact, normal color. Absent: rash Course Vital Signs 10/07/22 10/07/22 05:34 07:26 Temperature 98.3 F Pulse Rate 62 60 Respiratory 14 18 Rate Blood Pressure 118/53 143/70 O2 Sat by Pulse 96 97 Oximetry - Reevaluation(s) Reevaluation #1: 10/07/22 06:23 Rectal record is reviewed for Reevaluation #2: 10/07/22 Patient has significant improvement here in the emergency department Reevaluation #3: 10/07/22 Patient informed results and questions have been answered Reevaluation #4: 10/07/22 06:23 Was pt. sent in by a medical professional or institution? @ -no Did you speak to anyone other than the patient for history? @ -no Did you review nursing and triage notes? @ -agree Were old charts reviewed? @ -yes Differential Diagnosis? @ -prior EKG interpreted by me (3pts min.)? @ -no X-rays interpreted by me (1pt min.)? @ -yes CT interpreted by me (1pt min.)? @ -no U/S interpreted by me (1pt. min.)? @ -no What testing was considered but not performed? (CT, X-rays, U/S, labs)? Why? @ -no What meds were considered but not given? Why? @ -no Did you discuss the management of the patient with other professionals? @ -no Did you reconcile home meds? @ -no Was smoking cessation discussed for >3mins.? @ -no Was critical care preformed (if so, how long)? @ -no Were there social determinants of health that impacted care today? How? (Homelessness, low income, unemployed, alcoholism, drug addiction, transportation, low edu. Level, literacy, decrease access to med. care, senior living, rehab)? @ -no Was there de-escalation of care discussed even if they declined? (Discuss DNR or withdrawal of care, Hospice)? @ -no What co-morbidities impacted this encounter? (DM, HTN, Smoking, COPD, CAD, Cancer, CVA, Hep., AIDS, mental health diagnosis, sleep apnea, morbid obesity)? @ -none Was patient admitted / discharged? @ -52 female to the emergency department for evaluation of cough congestion with elevated blood sugar. Patient is well-known to us here. Patient's pain is controlled here in the ER blood sugar is improved chest x-rays negative and patient can be discharged home Discharge Undiagnosed new problem with uncertain prognosis? @ -no Drug Therapy requiring intensive monitoring for toxicity (Heparin, Nitro, Insulin, Cardizem)? @ -no Were any procedures done? @ -no Diagnosis/symptom? @ -Hypoglycemia chest pain, anxiety Acute, or Chronic, or Acute on Chronic? @ -acute Uncomplicated (without systemic symptoms) or Complicated (systemic symptoms)? @ -complicated Side effects of treatment? @ -no Exacerbation, Progression, or Severe Exacerbation] @ -no Poses a threat to life or bodily function? @ -no Medical Decision Making - Medical Decision Making 52 female to the emergency department for evaluation of cough congestion with elevated blood sugar. Patient is well-known to us here. Patient's pain is controlled here in the ER blood sugar is improved chest x-rays negative and patient can be discharged home - Lab Data Lab Results 10/07/22 10/07/22 Range/Units 06:32 07:24 POC Glucose (mg/dL) >600 H 437 H (70-110) mg/dL POC Glu Sing[employer] Machine Operator John Smallwood Stephanie - EKG Data -: EKG Interpreted by Me (EKG is sinus 55 MN 159 QRS 79 QTc 417) - Radiology Data Radiology results: report reviewed (Chest x-rays negative for acute disease), image reviewed Disposition Clinical Impression: Hyperglycemia Disposition: HOME SELF-CARE Instructions (If sedation given, give patient instructions): Diabetic Hyperglycemia (ED) Is patient prescribed a controlled substance at d/c from ED?: No Referrals: Guillermo Cerda MD [Primary Care Provider] - 1-2 days Time of Disposition: 07:30
[2022-10-07 06:33] LABS: Glucose,Whole Blood >600 mg/dL (70-110)
[2022-10-07 07:25] LABS: Glucose,Whole Blood 437 mg/dL (70-110)
[2022-10-07] MEDS ORDERED: ACETAMINOPHEN TAB 500 MG TAB PO STA (07:26)
--- NOTE | 2022-10-07 07:26 | XR ---
EXAMINATION TYPE: XR chest 1V portable DATE OF EXAM: 10/07/2022 COMPARISON: 09/15/2022 INDICATION: Cough short of breath TECHNIQUE: Single frontal view of the chest is obtained. FINDINGS: The heart size is upper limits of normal. The pulmonary vasculature is normal. The lungs are clear. IMPRESSION: 1. No acute pulmonary process.
[2022-10-07 07:27] VITALS: BP 143/70; PULSE 60; RESP 18
== END 2022-10-07 07:36 | disposition home or self-care (01) ==
LOC: EC 05:29
DX: E11.65 Type 2 diabetes mellitus with hyperglycemia (principal); F41.9 Anxiety disorder, unspecified; I10 Essential (primary) hypertension; E78.5 Hyperlipidemia, unspecified; K21.9 Gastro-esophageal reflux disease without esophagitis; F17.290 Nicotine dependence, other tobacco product, uncomplicated; Z79.84 Long term (current) use of oral hypoglycemic drugs; Z79.899 Other long term (current) drug therapy; Z88.1 Allergy status to other antibiotic agents
CPT/HCPCS: 36415; 71045; 96360; 99285

== ENCOUNTER 2022-10-10 18:41 | Emergency (ER) | payer MEDICARE ==
[2022-10-10 20:50] VITALS: TEMP 97.3
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
--- NOTE | 2022-10-10 22:14 | XR ---
EXAM: XR Right Hand Complete, 3 or More Views CLINICAL HISTORY: ITS.REASON XR Reason: injury TECHNIQUE: Frontal, lateral and oblique views of the right hand. COMPARISON: No relevant prior studies available. FINDINGS: Bones/joints: Short fourth and fifth metacarpals, a developmental variant. No acute fracture or dislocation. Soft tissues: Unremarkable. No radiopaque foreign body. IMPRESSION: No acute findings in the right hand.
--- NOTE | 2022-10-10 22:14 | XR ---
EXAM: XR Right Forearm, 2 Views CLINICAL HISTORY: ITS.REASON XR Reason: injury TECHNIQUE: Frontal and lateral views of the right forearm. COMPARISON: No relevant prior studies available. FINDINGS: Bones/joints: No acute fracture. No dislocation. Soft tissues: Unremarkable. IMPRESSION: Normal right forearm x-rays.
[2022-10-10 22:36] VITALS: BP 137/87; PULSE 74; RESP 16
== END 2022-10-10 23:19 | disposition home or self-care (01) ==
LOC: EC 18:41
DX: M79.631 Pain in right forearm (principal); E11.9 Type 2 diabetes mellitus without complications; K21.9 Gastro-esophageal reflux disease without esophagitis; E78.5 Hyperlipidemia, unspecified; I10 Essential (primary) hypertension; Z77.22 Contact with and (suspected) exposure to environmental tobacco smoke (acute) (chronic); Z88.1 Allergy status to other antibiotic agents; Z79.899 Other long term (current) drug therapy; Y04.8XXA Assault by other bodily force, initial encounter
CPT/HCPCS: 99283

== ENCOUNTER 2022-11-11 20:50 | Emergency (ER) | payer MEDICARE ==
[2022-11-11 20:56] VITALS: BP 147/89; PULSE 79; RESP 16; TEMP 98.9
[2022-11-11 21:13] LABS: Glucose,Whole Blood 454 mg/dL (70-110)
[2022-11-11] MEDS ORDERED: MAG HYDROX/AL HYDROX/SIMETH 30 ML, HYOSCYAMINE ELIXIR 10 ML, LIDOCAINE 2% GLYDO JELLY 1... PO STA ×3 (21:29)
[2022-11-11] MEDS ORDERED: INSULIN ASPART (NovoLOG) 100 UNIT/ML VIAL SQ ONE ×2 (21:29→22:41)
[2022-11-11] MEDS ORDERED: METOCLOPRAMIDE 5 MG TAB PO STA (21:29)
[2022-11-11] MEDS ORDERED: ACETAMINOPHEN TAB 500 MG TAB PO STA (21:30)
--- NOTE | 2022-11-11 21:48 | XR ---
EXAMINATION TYPE: XR chest 2V DATE OF EXAM: 11/11/2022 9:44 PM COMPARISON: Chest radiographs from 10/07/2022 TECHNIQUE: XR chest 2V Frontal and lateral views of the chest. CLINICAL INDICATION:Female, 52 years old with history of acid reflux; FINDINGS: Lungs/Pleura: There is no evidence of pleural effusion, focal consolidation, or pneumothorax. Pulmonary vascularity: Unremarkable. Heart/mediastinum: Cardiomediastinal silhouette is unremarkable. Musculoskeletal: No acute osseous pathology. IMPRESSION: No acute cardiopulmonary disease/process.
--- NOTE | 2022-11-11 21:58 | ED ---
General Adult HPI - General Chief complaint: Chest Pain Stated complaint: acid reflux Time Seen by Provider: 11/11/22 21:19 Source: patient, RN notes reviewed, old records reviewed Mode of arrival: EMS - History of Present Illness Initial comments: Patient is a 52-year-old female who presents emergency Department complaining of chronic chest pain. She is well known to our emergency department. Has been having this chest discomfort on the only a nightly basis for many days to weeks. Describes it as a burning sensation that radiates from her epigastric region up the center of her chest to the back of her throat. Please it is her normal acid reflux. States it hasn't been improving but has not been taking any medications for it. It is worse at night when she lays down flat. Presents for evaluation for. Patient is also poorly controlled diabetic but states she has been compliant with medications. Patient's blood sugars calmly 454. Denies any shortness of breath, abdominal pain, nausea, vomiting otherwise. Currently is just complaining of the burning posterior throat pain. Also endorses chronic left knee pain that has been worse lately but she states she has been walking more due to the nice weather. Has no other acute complaints at this time. Presents for further evaluation. - Related Data Home Medications Medication Instructions Recorded Confirmed Atorvastatin [Lipitor] 80 mg PO HS 06/25/19 03/03/22 lisinopriL 40 mg PO DAILY 09/24/20 03/03/22 metFORMIN HCL [Glucophage] 500 mg PO DAILY 09/24/20 03/03/22 traZODone HCL 50 - 100 mg PO HS PRN 01/11/21 03/03/22 Ergocalciferol (Vitamin D2) 1,250 mcg PO TU 03/03/21 03/03/22 [Drisdol (50,000 Iu)] Albuterol Inhaler [Ventolin Hfa 2 puff INHALATION RT-QID PRN 07/28/21 03/03/22 Inhaler] Esomeprazole Magnesium [NexIUM] 20 mg PO DAILY 01/30/22 03/03/22 Previous Rx's Medication Instructions Recorded INSULIN ASPART (NovoLOG) [NovoLOG 30 unit SQ AC-TID #10 ml 02/06/22 (formulary)] Insulin Detemir (Levemir) [Levemir] 90 unit SQ DAILY@0700 30 Days #1 02/06/22 pen Doxycycline Hyclate 100 mg PO BID 10 Days #20 tab 03/08/22 Sulfamethox-Tmp 800-160Mg [Bactrim 1 tab PO Q12HR 10 Days #20 tab 04/29/22 DS 800-160 mg] Sulfamethox-Tmp 800-160Mg [Bactrim 1 tab PO Q12HR #28 tab 09/01/22 DS 800-160 mg] Cephalexin [Keflex] 500 mg PO Q6HR #40 cap 09/08/22 Insulin Aspart [NovoLOG] 30 units SQ AC-TID 30 Days #10 ml 09/15/22 Insulin Detemir (Levemir) [Levemir] 90 unit SQ DAILY 30 Days #1 pen 09/15/22 Famotidine 20 mg PO DAILY 7 Days #7 tab 11/11/22 Allergies Allergy/AdvReac Type Severity Reaction Status Date / Time levofloxacin [From Levaquin] Allergy Rash/Hives Verified 11/11/22 20:56 Review of Systems ROS Statement: Those systems with pertinent positive or pertinent negative responses have been documented in the HPI. Review of Systems: CONST: Denies fever EYES: Denies blurry vision ENT: Denies nasal congestion C/V: Endorses burning acid reflux type pain RESP: Denies shortness of breath GI: Denies abdominal pain : Denies dysuria SKIN: Denies rash. MSK: Denies joint pain. NEURO: Denies headache ROS Other: All systems not noted in ROS Statement are negative. Past Medical History Past Medical History: Diabetes Mellitus, GERD/Reflux, Hyperlipidemia, Hypertension, Syncope Additional Past Medical History / Comment(s): Pt recently admitted to [facility] on 07/21/21 with uncontrolled IDDM and hyperkalemia. Other hx: Recurrent pancreatitis, hypertriglyceridemia, elevated lipase, IDDM type II, UTI, chronic low back pain, bulging discs, dental abscesses in past. History of Any Multi-Drug Resistant Organisms: MRSA Date of last positivie culture/infection: 04/29/22 MDRO Source:: Buttock Past Surgical History: Tubal Ligation Additional Past Surgical History / Comment(s): Age 7 had VSD repair Past Anesthesia/Blood Transfusion Reactions: No Reported Reaction Past Psychological History: No Psychological Hx Reported Smoking Status: Former smoker, Second hand smoke exposure, Vaper Past Alcohol Use History: None Reported Past Drug Use History: None Reported - Past Family History Mother Family Medical History: No Reported History Additional Family Medical History / Comment(s): Mother was healthy. She is , pt cannot recall cause of . Father Family Medical History: Pneumonia Additional Family Medical History / Comment(s): Father at the age of 67yrs from pneumonia General Exam - General Exam Comments Initial Comments: General: Appears in no acute distress. HEAD: Normal with no signs of head trauma. EYES: PERRLA, EOMI, conjunctiva normal, no discharge. ENT: Hearing grossly intact, normal oropharynx. Moist mucous membranes. RESPIRATORY: Clear breath sounds bilaterally. No wheezes, rales, or rhonchi. C/V: Regular rate and rhythm. S1 and S2 auscultated, peripheral pulses 2+ and intact throughout ABD: Abd is soft, nontender, nondistended EXT: Normal range of motion, no obvious deformity SKIN: No rashes or lesions observed on exposed skin. NEURO: Alert and oriented x 4. Course Vital Signs 11/11/22 20:51 Temperature 98.9 F Pulse Rate 79 Respiratory 16 Rate Blood Pressure 147/89 O2 Sat by Pulse 95 Oximetry Medical Decision Making - Medical Decision Making Was pt. sent in by a medical professional or institution (, PA, SURVEYOR, urgent c are, hospital, or fdc...) When possible be specific @ -No Did you speak to anyone other than the patient for history (EMS, parent, family, police, friend...)? What history was obtained from this source @ -No Did you review nursing and triage notes (agree or disagree)? Why? @ -I reviewed and agree with nursing and triage notes Were old charts reviewed (outside hosp., previous admission, EMS record, old EKG, old radiological studies, urgent care reports/EKG's, fdc records)? Report findings @ -Old charts an EKG was reviewed including from October 2022 Differential Diagnosis (chest pain, altered mental status, abdominal pain women, abdominal pain men, vaginal bleeding, weakness, fever, dyspnea, syncope, headache, dizziness, GI bleed, back pain, seizure, CVA, palpatations, mental health, musculoskeletal)? @ -Acid reflux, chronic pain, GERD, hyperglycemia, this list is not all- inclusive. EKG interpreted by me (3pts min.). @ -As above X-rays interpreted by me (1pt min.). @ -Chest x-ray reveals no obvious acute cardio pulmonary process. CT interpreted by me (1pt min.). @ -None done U/S interpreted by me (1pt. min.). @ -None done What testing was considered but not performed or refused? (CT, X-rays, U/S, labs)? Why? @ -None What meds were considered but not given or refused? Why? @ -None Did you discuss the management of the patient with other professionals (professionals i.e. DrShayan, PA, SURVEYOR, lab, RT, psych nurse, social service manager, fitter's assistant, teacher, special skills officer, case resource manager)? Give summary @ -No Was smoking cessation discussed for >3mins.? @ -No Was critical care preformed (if so, how long)? @ -No Were there social determinants of health that impacted care today? How? (Homelessness, low income, unemployed, alcoholism, drug addiction, transportation, low edu. Level, literacy, decrease access to med. care, [place] [facility], rehab)? @ -No Was there de-escalation of care discussed even if they declined (Discuss DNR or withdrawal of care, Hospice)? DNR status @ -No What co-morbidities impacted this encounter? (DM, HTN, Smoking, COPD, CAD, Cancer, CVA, ARF, Chemo, Hep., AIDS, mental health diagnosis, sleep apnea, morbid obesity)? @ -None Was patient admitted / discharged? Hospital course, mention meds given and route, prescriptions, significant lab abnormalities, going to OR and other pertinent info. @ -Based on the patient's presentation and physical exam, presents with chronic symptoms and after discussion with both agree it sounds like acid reflux. She has a cardiac history however symptoms are very classic for GERD. We'll obtain a screening EKG as well as chest x-ray. She'll be symptomatically treated with GI cocktail, Reglan, as well as a dose of insulin. She was in agreement this plan. Vital signs within except limits. Symptoms have all been ongoing for multiple days to weeks, and a nightly basis. Classic story for acid reflux. EKG showed no acute changes and is very similar to previous EKGs including from October 2022. Chest x-ray was obtained and revealed no obvious acute cardio pulmonary process. Patient's repeat blood sugar is improved she was initially mildly hyperglycemic. On reevaluation, she is feeling improved. We discussed her diagnosis of aspirin reflux. I will provide her with prescription for antacids as well as instructions to purchase Tums or other [id number] relief. Strict return precautions discussed. She was in agreement this plan. I will provide the patient with a prescription for famotidine. I instructed the patient to follow up with their PCP in the next 1-3 days. I explained that the patient should return to the emergency department if they experience any worsening symptoms. Strict return precautions were discussed with the patient. The patient expressed understanding of these instructions. I answered all questions that the patient had. The patient was discharged home in good condition with their prescriptions and follow up information. Undiagnosed new problem with uncertain prognosis? @ -No Drug Therapy requiring intensive monitoring for toxicity (Heparin, Nitro, Insulin, Cardizem)? @ -No Were any procedures done? @ -No Diagnosis/symptom? @ -GERD, hyperglycemia Acute, or Chronic, or Acute on Chronic? @ -Acute on chronic Uncomplicated (without systemic symptoms) or Complicated (systemic symptoms)? @ -Complicated Side effects of treatment? @ -No Exacerbation, Progression, or Severe Exacerbation? @ -No Poses a threat to life or bodily function? How? (Chest pain, [place], [place], pneumonia, PE, COPD, DKA, ARF, appy, cholecystitis, CVA, Diverticulitis, Homicidal, Suicidal, threat to staff... and all critical care pts) @ -No - Lab Data Lab Results 11/11/22 11/11/22 Range/Units 21:11 22:25 POC Glucose (mg/dL) 454 H 457 H (70-110) mg/dL POC Glu [employer] John Smallwood Karlee - EKG Data -: EKG Interpreted by Me EKG Comments: 12-lead Electrocardiogram Interpretation Note EKG was reviewed and interpreted by myself. 12-lead ECG performed at 2101 is interpreted by me as revealing normal sinus rhythm at a rate of 73. [place] interval is 130 ms, QRS duration is 80 ms, QTc is 385 ms. beats per minute. [place] is normal. There were no ST or T wave abnormalities to suggest myocardial ischemia or injury. R wave progression across the precordium was satisfactory. By my interpretation this EKG is non-diagnostic for acute ischemia. When compared with EKG from October 2022, no significant change. Disposition Clinical Impression: GERD (gastroesophageal reflux disease), Hyperglycemia Disposition: HOME SELF-CARE Condition: Good Instructions (If sedation given, give patient instructions): GERD (Gastroesophageal Reflux Disease) (ED) Prescriptions: Famotidine 20 mg PO DAILY 7 Days #7 tab Is patient prescribed a controlled substance at d/c from ED?: No Referrals: Guillermo Cerda MD [Primary Care Provider] - 1-2 days Time of Disposition: 22:25
[2022-11-11 22:28] LABS: Glucose,Whole Blood 457 mg/dL (70-110)
== END 2022-11-11 22:55 | disposition home or self-care (01) ==
LOC: EC 20:50
DX: K21.9 Gastro-esophageal reflux disease without esophagitis (principal); E11.65 Type 2 diabetes mellitus with hyperglycemia; E78.5 Hyperlipidemia, unspecified; I10 Essential (primary) hypertension; F17.290 Nicotine dependence, other tobacco product, uncomplicated; Z88.1 Allergy status to other antibiotic agents; Z79.84 Long term (current) use of oral hypoglycemic drugs; Z79.899 Other long term (current) drug therapy
CPT/HCPCS: 36415; 71046; 93005; 99285

== ENCOUNTER 2022-11-22 01:02 | Emergency (ER) | payer MEDICARE ==
[2022-11-22 01:06] VITALS: RESP 18; TEMP 98.4
[2022-11-22 01:07] LABS: Glucose,Whole Blood >600 mg/dL (70-110)
[2022-11-22] MEDS ORDERED: SODIUM CHLORIDE 0.9% 500 ML 500 ML IV STA (01:42)
--- NOTE | 2022-11-22 01:50 | ED ---
General Adult HPI - General Source: patient, EMS, RN notes reviewed, old records reviewed - History of Present Illness -: days(s) (2) Location: mouth (sore throat) Quality: aching, constant Consistency: constant Improves with: none Associated Symptoms: cough, malaise Treatments Prior to Arrival: other (cough drops) <Kenneth Marie - Last Filed: 11/22/22 04:00> <Servando Hernandez - Last Filed: 11/22/22 10:30> - General Chief complaint: Recheck/Abnormal Lab/Rx Stated complaint: Unwell Time Seen by Provider: 11/22/22 01:42 - History of Present Illness Initial comments: 52-year-old female, alert and oriented 4 presents to the emergency room with complaints of not feeling well for the past 2 days. Achy all over with occasional cough and sore throat. Has been using cough drops which seems to help. Denies any fevers, no nausea vomiting. Does state he has some abdominal pain and back pain. Patient does have a history of diabetes, GERD, hypertension (Kenneth Marie) - Related Data Home Medications Medication Instructions Recorded Confirmed Atorvastatin [Lipitor] 80 mg PO HS 06/25/19 03/03/22 lisinopriL 40 mg PO DAILY 09/24/20 03/03/22 metFORMIN HCL [Glucophage] 500 mg PO DAILY 09/24/20 03/03/22 traZODone HCL 50 - 100 mg PO HS PRN 01/11/21 03/03/22 Ergocalciferol (Vitamin D2) 1,250 mcg PO TU 03/03/21 03/03/22 [Drisdol (50,000 Iu)] Albuterol Inhaler [Ventolin Hfa 2 puff INHALATION RT-QID PRN 07/28/21 03/03/22 Inhaler] Esomeprazole Magnesium [NexIUM] 20 mg PO DAILY 01/30/22 03/03/22 Previous Rx's Medication Instructions Recorded INSULIN ASPART (NovoLOG) [NovoLOG 30 unit SQ AC-TID #10 ml 02/06/22 (formulary)] Insulin Detemir (Levemir) [Levemir] 90 unit SQ DAILY@0700 30 Days #1 02/06/22 pen Doxycycline Hyclate 100 mg PO BID 10 Days #20 tab 12/01/22 Sulfamethox-Tmp 800-160Mg [Bactrim 1 tab PO Q12HR 10 Days #20 tab 04/29/22 DS 800-160 mg] Sulfamethox-Tmp 800-160Mg [Bactrim 1 tab PO Q12HR #28 tab 09/01/22 DS 800-160 mg] Cephalexin [Keflex] 500 mg PO Q6HR #40 cap 09/08/22 Insulin Aspart [NovoLOG] 30 units SQ AC-TID 30 Days #10 ml 09/15/22 Insulin Detemir (Levemir) [Levemir] 90 unit SQ DAILY 30 Days #1 pen 09/15/22 Famotidine 20 mg PO DAILY 7 Days #7 tab 11/11/22 Allergies Allergy/AdvReac Type Severity Reaction Status Date / Time levofloxacin [From Levaquin] Allergy Rash/Hives Verified 11/11/22 20:56 Review of Systems ROS Other: All systems not noted in ROS Statement are negative. <Kenneth Marie - Last Filed: 11/22/22 04:00> ROS Other: All systems not noted in ROS Statement are negative. <Servando Hernandez - Last Filed: 11/22/22 10:30> ROS Statement: Those systems with pertinent positive or pertinent negative responses have been documented in the HPI. Past Medical History Past Medical History: Diabetes Mellitus, GERD/Reflux, Hyperlipidemia, Hypertension, Syncope Additional Past Medical History / Comment(s): Pt recently admitted to [facility] on 07/21/21 with uncontrolled IDDM and hyperkalemia. Other hx: Recurrent pancreatitis, hypertriglyceridemia, elevated lipase, IDDM type II, UTI, chronic low back pain, bulging discs, dental abscesses in past. History of Any Multi-Drug Resistant Organisms: MRSA Date of last positivie culture/infection: 04/29/22 MDRO Source:: Buttock Past Surgical History: Tubal Ligation Additional Past Surgical History / Comment(s): Age 7 had VSD repair Past Anesthesia/Blood Transfusion Reactions: No Reported Reaction Past Psychological History: No Psychological Hx Reported Smoking Status: Former smoker, Second hand smoke exposure, Vaper Past Alcohol Use History: None Reported Past Drug Use History: None Reported - Past Family History Mother Family Medical History: No Reported History Additional Family Medical History / Comment(s): Mother was healthy. She is , pt cannot recall cause of . Father Family Medical History: Pneumonia Additional Family Medical History / Comment(s): Father at the age of 67yrs from pneumonia <Kenneth Marie - Last Filed: 11/22/22 04:00> General Exam Limitations: no limitations General appearance: alert, in no apparent distress Head exam: Present: atraumatic Eye exam: Present: normal appearance. Absent: scleral icterus, conjunctival injection, periorbital swelling ENT exam: Present: mucous membranes moist Expanded Mouth exam: Present: tongue normal, tongue elevation. Absent: drooling, trismus Throat exam: tonsillar erythema, tonsillar exudate (Left). negative: R peritonsillar mass, L peritonsillar mass Neck exam: Present: full ROM. Absent: tenderness, meningismus, lymphadenopathy Respiratory exam: Present: normal lung sounds bilaterally. Absent: respiratory distress, accessory muscle use Cardiovascular Exam: Present: regular rate GI/Abdominal exam: Present: soft. Absent: distended, tenderness Extremities exam: Present: full ROM, normal capillary refill. Absent: t enderness, pedal edema Back exam: Absent: tenderness, CVA tenderness (R), CVA tenderness (L) Neurological exam: Present: alert, oriented X3, normal gait Psychiatric exam: Present: normal affect, normal mood Skin exam: Present: warm, dry, normal color. Absent: cyanosis, diaphoretic, petechiae, pallor <Kenneth Marie - Last Filed: 11/22/22 04:00> Course Vital Signs 11/22/22 11/22/22 11/22/22 01:03 02:06 03:10 Temperature 98.4 F Pulse Rate 77 76 95 Respiratory 18 18 18 Rate Blood Pressure 163/88 153/94 150/80 O2 Sat by Pulse 97 95 95 Oximetry 11/22/22 11/22/22 11/22/22 04:00 05:00 06:00 Temperature Pulse Rate 67 69 70 Respiratory 18 18 18 Rate Blood Pressure 155/80 155/84 144/80 O2 Sat by Pulse 95 95 95 Oximetry EKG Findings - EKG Results: EKG: interpreted by ERMD, sinus rhythm (EKG interpreted by me shows sinus rhythm with a ventricular rate of 74, IL interval 0.156, QRS 0.89, QTC 0.406), no acute changes (11/11/22) <Riske,Kenneth - Last Filed: 11/22/22 04:00> Medical Decision Making - Lab Data Result diagrams: 11/22/22 02:12 <Kenneth Marie - Last Filed: 11/22/22 04:00> - Lab Data Result diagrams: 11/22/22 02:12 11/22/22 05:47 <Servando Hernandez - Last Filed: 11/22/22 10:30> - Medical Decision Making . Was pt. sent in by a medical professional or institution (, PA, [employer], urgent care, hospital, or skilled nursing...) When possible be specific @ -[No] Did you speak to anyone other than the patient for history (EMS, parent, family, police, friend...)? What history was obtained from this source @ -[No] Did you review nursing and triage notes (agree or disagree)? Why? @ -[I reviewed and agree with nursing and triage notes] Were old charts reviewed (outside hosp., previous admission, EMS record, old EKG, old radiological studies, urgent care reports/EKG's, skilled nursing records)? Report findings @ -Old EKG 11/11/2022 Differential Diagnosis (chest pain, altered mental status, abdominal pain women, abdominal pain men, vaginal bleeding, weakness, fever, dyspnea, syncope, headache, dizziness, GI bleed, back pain, seizure, CVA, palpatations, mental health, musculoskeletal)? @ -Differential Weakness: Hypoglycemia, shock, sepsis, hyponatremia, anemia, infection, ND, ETOH, adverse medicine reaction, overdose, stroke, this is not meant to be an all-inclusive list. EKG interpreted by me (3pts min.). @ -yes EKG interpreted by me shows sinus rhythm with a ventricular rate of 74, IL interval 0.156, QRS 0.89, QTC 0.406 concerning changes compared to 11/11/2022 X-rays interpreted by me (1pt min.). @ -[None done] CT interpreted by me (1pt min.). @ -[None done] U/S interpreted by me (1pt. min.). @ -[None done] What testing was considered but not performed or refused? (CT, X-rays, U/S, labs)? Why? @ -[None] What meds were considered but not given or refused? Why? @ -[None] Did you discuss the management of the patient with other professionals (professionals i.e. DrShayan, PA, [employer], lab, RT, psych nurse, social media sr strategy manager, health systems analyst, teacher, flight communications officer, case maker)? Give summary @ -[No] Was smoking cessation discussed for >3mins.? @ -[No] Was critical care preformed (if so, how long)? @ -[No] Were there social determinants of health that impacted care today? How? (Homelessness, low income, unemployed, alcoholism, drug addiction, transportation, low edu. Level, literacy, decrease access to med. care, [place] [facility], rehab)? @ -[No] Was there de-escalation of care discussed even if they declined (Discuss DNR or withdrawal of care, Hospice)? DNR status @ -[No] What co-morbidities impacted this encounter? (DM, HTN, Smoking, COPD, CAD, Cancer, CVA, ARF, Chemo, Hep., AIDS, mental health diagnosis, sleep apnea, morbid obesity)? @ -obesity, diabetes, GERD, hypertension Was patient admitted / discharged? Hospital course, mention meds given and route, prescriptions, significant lab abnormalities, going to OR and other pertinent info. @ - 52-year-old female, alert and oriented 4 presents to the emergency room with complaints of not feeling well for the past 2 days. Achy all over with occasional cough and sore throat. Has been using cough drops which seems to help. Denies any fevers, no nausea vomiting. Does state he has some abdominal pain and back pain. EKG interpreted by me shows sinus rhythm with a ventricular rate of 74, IL interval 0.156, QRS 0.89, QTC 0.406 concerning changes compared to 11/11/2022 Troponin negative at 0.012. Lactic acid 4.5 patient was given a liter and half of fluids and 130 mL an hour. Blood glucose greater than 600, patient given 8 units IV regular insulin Rapid strep negative. Case was turned over to Dr. Fairchild for disposition Undiagnosed new problem with uncertain prognosis? @ -[No] Drug Therapy requiring intensive monitoring for toxicity (Heparin, Nitro, Insulin, Cardizem)? @ -[No] Were any procedures done? @ -[No] Diagnosis/symptom? @ -[default] Acute, or Chronic, or Acute on Chronic? @ -[default] Uncomplicated (without systemic symptoms) or Complicated (systemic symptoms)? @ -[default] Side effects of treatment? @ -[No] Exacerbation, Progression, or Severe Exacerbation? @ -[No] Poses a threat to life or bodily function? How? (Chest pain, USA, ND, pneumonia, PE, COPD, DKA, ARF, appy, cholecystitis, CVA, Diverticulitis, Homicidal, Suicidal, threat to staff... and all critical care pts) @ -[No] (Frank,Kenneth) Case endorsed to me by Dr. Fairchild secondary to hyperglycemia. Plan to discharge patient when blood sugar improves. Patient reevaluated and resting comfortably in bed. Blood sugar has improved to 311. Patient states she is feeling well and has no complaints at this time. Diagnosis: Acute hyperglycemia Patient will be discharged to care facility and recommended closer monitoring of blood sugar. Return if symptoms worse. (Servando Hernandez) - Lab Data Lab Results 11/22/22 11/22/22 11/22/22 Range/Units 01:05 02:12 02:12 WBC 9.7 (3.8-10.6) k/uL RBC 5.34 (3.80-5.40) m/uL Hgb 14.7 (11.4-16.0) gm/dL Hct 46.2 H (34.0-46.0) % MCV 86.4 (80.0-100.0) fL MCH 27.5 (25.0-35.0) pg MCHC 31.8 (31.0-37.0) g/dL RDW 16.6 H (11.5-15.5) % Plt Count 565 H (150-450) k/uL MPV 7.9 Neutrophils % Not Reportable Neutrophils % (Manual) 62 % Band Neuts % (Manual) 2 % Lymphocytes % Not Reportable Lymphocytes % (Manual) 26 % Monocytes % Not Reportable Monocytes % (Manual) 8 % Eosinophils % Not Reportable Eosinophils % (Manual) 2 % Basophils % Not Reportable Neutrophils # Not Reportable Neutrophils # (Manual) 6.20 (1.3-7.7) k/uL Lymphocytes # Not Reportable Lymphocytes # (Manual) 2.52 (1.0-4.8) k/uL Monocytes # Not Reportable Monocytes # (Manual) 0.78 (0-1.0) k/uL Eosinophils # Not Reportable Eosinophils # (Manual) 0.19 (0-0.7) k/uL Basophils # Not Reportable Nucleated RBCs 0 (0-0) /100 WBC Manual Slide Review Performed Hypochromasia Slight Anisocytosis Slight PT 9.4 (9.0-12.0) sec INR 0.9 (<1.2) APTT 22.6 (22.0-30.0) sec Sodium (137-145) mmol/L Potassium (3.5-5.1) mmol/L Chloride (98-107) mmol/L Carbon Dioxide (22-30) mmol/L Anion Gap mmol/L BUN (7-17) mg/dL Creatinine (0.52-1.04) mg/dL Est GFR (CKD-EPI)AfAm (>60 ml/min/1.73 sqM) Est GFR (CKD-EPI)NonAf (>60 ml/min/1.73 sqM) Glucose (74-99) mg/dL POC Glucose (mg/dL) >600 H (70-110) mg/dL POC Glu [employer] ID María Elena Bernarda Lactic Ac Sepsis Rflx Plasma Lactic Acid Travon (0.7-2.0) mmol/L Calcium (8.4-10.2) mg/dL Magnesium (1.6-2.3) mg/dL Total Bilirubin (0.2-1.3) mg/dL AST (14-36) U/L ALT (4-34) U/L Alkaline Phosphatase (38-126) U/L Troponin I (0.000-0.034) ng/mL Total Protein (6.3-8.2) g/dL Albumin (3.5-5.0) g/dL Urine Color Urine Appearance (Clear) Urine pH (5.0-8.0) Ur Specific [place] (1.001-1.035) Urine Protein (Negative) Urine Glucose (UA) (Negative) Urine Ketones (Negative) Urine Blood (Negative) Urine Nitrite (Negative) Urine Bilirubin (Negative) Urine Urobilinogen (<2.0) mg/dL Ur Leukocyte Esterase (Negative) Urine RBC (0-5) /hpf Urine WBC (0-5) /hpf Ur Squamous Epith Cells (0-4) /hpf Urine Bacteria (None) /hpf Urine Mucus (None) /hpf Group A Strep (PCR) (Not Detectd) 11/22/22 11/22/22 11/22/22 Range/Units 02:12 02:12 02:12 WBC (3.8-10.6) k/uL RBC (3.80-5.40) m/uL Hgb (11.4-16.0) gm/dL Hct (34.0-46.0) % MCV (80.0-100.0) fL MCH (25.0-35.0) pg MCHC (31.0-37.0) g/dL RDW (11.5-15.5) % Plt Count (150-450) k/uL MPV Neutrophils % Neutrophils % (Manual) % Band Neuts % (Manual) % Lymphocytes % Lymphocytes % (Manual) % Monocytes % Monocytes % (Manual) % Eosinophils % Eosinophils % (Manual) % Basophils % Neutrophils # Neutrophils # (Manual) (1.3-7.7) k/uL Lymphocytes # Lymphocytes # (Manual) (1.0-4.8) k/uL Monocytes # Monocytes # (Manual) (0-1.0) k/uL Eosinophils # Eosinophils # (Manual) (0-0.7) k/uL Basophils # Nucleated RBCs (0-0) /100 WBC Manual Slide Review Hypochromasia Anisocytosis PT (9.0-12.0) sec INR (<1.2) APTT (22.0-30.0) sec Sodium 126 L (137-145) mmol/L Potassium 4.6 (3.5-5.1) mmol/L Chloride 89 L (98-107) mmol/L Carbon Dioxide 22 (22-30) mmol/L Anion Gap 15 mmol/L BUN 18 H (7-17) mg/dL Creatinine 0.60 (0.52-1.04) mg/dL Est GFR (CKD-EPI)AfAm >90 (>60 ml/min/1.73 sqM) Est GFR (CKD-EPI)NonAf >90 (>60 ml/min/1.73 sqM) Glucose 789 H* (74-99) mg/dL POC Glucose (mg/dL) (70-110) mg/dL POC Glu [place] [employer] ID Lactic Ac Sepsis Rflx Plasma Lactic Acid Travon 4.5 H* (0.7-2.0) mmol/L Calcium 9.6 (8.4-10.2) mg/dL Magnesium 1.7 (1.6-2.3) mg/dL Total Bilirubin 0.6 (0.2-1.3) mg/dL AST 26 (14-36) U/L ALT 24 (4-34) U/L Alkaline Phosphatase 212 H (38-126) U/L Troponin I <0.012 (0.000-0.034) ng/mL Total Protein 7.4 (6.3-8.2) g/dL Albumin 3.8 (3.5-5.0) g/dL Urine Color Urine Appearance (Clear) Urine pH (5.0-8.0) Ur Specific [place] (1.001-1.035) Urine Protein (Negative) Urine Glucose (UA) (Negative) Urine Ketones (Negative) Urine Blood (Negative) Urine Nitrite (Negative) Urine Bilirubin (Negative) Urine Urobilinogen (<2.0) mg/dL Ur Leukocyte Esterase (Negative) Urine RBC (0-5) /hpf Urine WBC (0-5) /hpf Ur Squamous Epith Cells (0-4) /hpf Urine Bacteria (None) /hpf Urine Mucus (None) /hpf Group A Strep (PCR) (Not Detectd) 11/22/22 11/22/22 11/22/22 Range/Units 02:24 02:24 03:38 WBC (3.8-10.6) k/uL RBC (3.80-5.40) m/uL Hgb (11.4-16.0) gm/dL Hct (34.0-46.0) % MCV (80.0-100.0) fL MCH (25.0-35.0) pg MCHC (31.0-37.0) g/dL RDW (11.5-15.5) % Plt Count (150-450) k/uL MPV Neutrophils % Neutrophils % (Manual) % Band Neuts % (Manual) % Lymphocytes % Lymphocytes % (Manual) % Monocytes % Monocytes % (Manual) % Eosinophils % Eosinophils % (Manual) % Basophils % Neutrophils # Neutrophils # (Manual) (1.3-7.7) k/uL Lymphocytes # Lymphocytes # (Manual) (1.0-4.8) k/uL Monocytes # Monocytes # (Manual) (0-1.0) k/uL Eosinophils # Eosinophils # (Manual) (0-0.7) k/uL Basophils # Nucleated RBCs (0-0) /100 WBC Manual Slide Review Hypochromasia Anisocytosis PT (9.0-12.0) sec INR (<1.2) APTT (22.0-30.0) sec Sodium (137-145) mmol/L Potassium (3.5-5.1) mmol/L Chloride (98-107) mmol/L Carbon Dioxide (22-30) mmol/L Anion Gap mmol/L BUN (7-17) mg/dL Creatinine (0.52-1.04) mg/dL Est GFR (CKD-EPI)AfAm (>60 ml/min/1.73 sqM) Est GFR (CKD-EPI)NonAf (>60 ml/min/1.73 sqM) Glucose (74-99) mg/dL POC Glucose (mg/dL) >600 H (70-110) mg/dL POC Glu [employer] [place] [employer] ID Shannan Noonan Lactic Ac Sepsis Rflx Plasma Lactic Acid Travon (0.7-2.0) mmol/L Calcium (8.4-10.2) mg/dL Magnesium (1.6-2.3) mg/dL Total Bilirubin (0.2-1.3) mg/dL AST (14-36) U/L ALT (4-34) U/L Alkaline Phosphatase (38-126) U/L Troponin I (0.000-0.034) ng/mL Total Protein (6.3-8.2) g/dL Albumin (3.5-5.0) g/dL Urine Color Colorless Urine Appearance Clear (Clear) Urine pH 5.5 (5.0-8.0) Ur Specific [place] 1.025 (1.001-1.035) Urine Protein 1+ H (Negative) Urine Glucose (UA) 4+ H (Negative) Urine Ketones Negative (Negative) Urine Blood Negative (Negative) Urine Nitrite Negative (Negative) Urine Bilirubin Negative (Negative) Urine Urobilinogen <2.0 (<2.0) mg/dL Ur Leukocyte Esterase Moderate H (Negative) Urine RBC 2 (0-5) /hpf Urine WBC 4 (0-5) /hpf Ur Squamous Epith Cells 5 H (0-4) /hpf Urine Bacteria Occasional H (None) /hpf Urine Mucus Rare H (None) /hpf Group A Strep (PCR) NOT DETECTED (Not Detectd) 11/22/22 11/22/22 11/22/22 Range/Units 03:56 04:52 05:30 WBC (3.8-10.6) k/uL RBC (3.80-5.40) m/uL Hgb (11.4-16.0) gm/dL Hct (34.0-46.0) % MCV (80.0-100.0) fL MCH (25.0-35.0) pg MCHC (31.0-37.0) g/dL RDW (11.5-15.5) % Plt Count (150-450) k/uL MPV Neutrophils % Neutrophils % (Manual) % Band Neuts % (Manual) % Lymphocytes % Lymphocytes % (Manual) % Monocytes % Monocytes % (Manual) % Eosinophils % Eosinophils % (Manual) % Basophils % Neutrophils # Neutrophils # (Manual) (1.3-7.7) k/uL Lymphocytes # Lymphocytes # (Manual) (1.0-4.8) k/uL Monocytes # Monocytes # (Manual) (0-1.0) k/uL Eosinophils # Eosinophils # (Manual) (0-0.7) k/uL Basophils # Nucleated RBCs (0-0) /100 WBC Manual Slide Review Hypochromasia Anisocytosis PT (9.0-12.0) sec INR (<1.2) APTT (22.0-30.0) sec Sodium (137-145) mmol/L Potassium (3.5-5.1) mmol/L Chloride (98-107) mmol/L Carbon Dioxide (22-30) mmol/L Anion Gap mmol/L BUN (7-17) mg/dL Creatinine (0.52-1.04) mg/dL Est GFR (CKD-EPI)AfAm (>60 ml/min/1.73 sqM) Est GFR (CKD-EPI)NonAf (>60 ml/min/1.73 sqM) Glucose (74-99) mg/dL POC Glucose (mg/dL) 496 H (70-110) mg/dL POC Glu [employer] [place] [employer] ID Bernarda Ring Lactic Ac Sepsis Rflx Y Plasma Lactic Acid Travon 3.2 H* (0.7-2.0) mmol/L Calcium (8.4-10.2) mg/dL Magnesium (1.6-2.3) mg/dL Total Bilirubin (0.2-1.3) mg/dL AST (14-36) U/L ALT (4-34) U/L Alkaline Phosphatase (38-126) U/L Troponin I (0.000-0.034) ng/mL Total Protein (6.3-8.2) g/dL Albumin (3.5-5.0) g/dL Urine Color Urine Appearance (Clear) Urine pH (5.0-8.0) Ur Specific [place] (1.001-1.035) Urine Protein (Negative) Urine Glucose (UA) (Negative) Urine Ketones (Negative) Urine Blood (Negative) Urine Nitrite (Negative) Urine Bilirubin (Negative) Urine Urobilinogen (<2.0) mg/dL Ur Leukocyte Esterase (Negative) Urine RBC (0-5) /hpf Urine WBC (0-5) /hpf Ur Squamous Epith Cells (0-4) /hpf Urine Bacteria (None) /hpf Urine Mucus (None) /hpf Group A Strep (PCR) (Not Detectd) 11/22/22 11/22/22 11/22/22 Range/Units 05:47 06:03 06:23 WBC (3.8-10.6) k/uL RBC (3.80-5.40) m/uL Hgb (11.4-16.0) gm/dL Hct (34.0-46.0) % MCV (80.0-100.0) fL MCH (25.0-35.0) pg MCHC (31.0-37.0) g/dL RDW (11.5-15.5) % Plt Count (150-450) k/uL MPV Neutrophils % Neutrophils % (Manual) % Band Neuts % (Manual) % Lymphocytes % Lymphocytes % (Manual) % Monocytes % Monocytes % (Manual) % Eosinophils % Eosinophils % (Manual) % Basophils % Neutrophils # Neutrophils # (Manual) (1.3-7.7) k/uL Lymphocytes # Lymphocytes # (Manual) (1.0-4.8) k/uL Monocytes # Monocytes # (Manual) (0-1.0) k/uL Eosinophils # Eosinophils # (Manual) (0-0.7) k/uL Basophils # Nucleated RBCs (0-0) /100 WBC Manual Slide Review Hypochromasia Anisocytosis PT (9.0-12.0) sec INR (<1.2) APTT (22.0-30.0) sec Sodium 131 L (137-145) mmol/L Potassium 4.3 (3.5-5.1) mmol/L Chloride 101 (98-107) mmol/L Carbon Dioxide 20 L (22-30) mmol/L Anion Gap 10 mmol/L BUN 14 (7-17) mg/dL Creatinine 0.48 L (0.52-1.04) mg/dL Est GFR (CKD-EPI)AfAm >90 (>60 ml/min/1.73 sqM) Est GFR (CKD-EPI)NonAf >90 (>60 ml/min/1.73 sqM) Glucose 488 H (74-99) mg/dL POC Glucose (mg/dL) 487 H (70-110) mg/dL POC Glu [employer] [place] [employer] ID Tawana Frank Lactic Ac Sepsis Rflx Y Plasma Lactic Acid Travon (0.7-2.0) mmol/L Calcium 8.4 (8.4-10.2) mg/dL Magnesium (1.6-2.3) mg/dL Total Bilirubin 0.4 (0.2-1.3) mg/dL AST 25 (14-36) U/L ALT 22 (4-34) U/L Alkaline Phosphatase 168 H (38-126) U/L Troponin I (0.000-0.034) ng/mL Total Protein 6.5 (6.3-8.2) g/dL Albumin 3.4 L (3.5-5.0) g/dL Urine Color Urine Appearance (Clear) Urine pH (5.0-8.0) Ur Specific [place] (1.001-1.035) Urine Protein (Negative) Urine Glucose (UA) (Negative) Urine Ketones (Negative) Urine Blood (Negative) Urine Nitrite (Negative) Urine Bilirubin (Negative) Urine Urobilinogen (<2.0) mg/dL Ur Leukocyte Esterase (Negative) Urine RBC (0-5) /hpf Urine WBC (0-5) /hpf Ur Squamous Epith Cells (0-4) /hpf Urine Bacteria (None) /hpf Urine Mucus (None) /hpf Group A Strep (PCR) (Not Detectd) 11/22/22 11/22/22 11/22/22 Range/Units 07:11 07:40 07:49 WBC (3.8-10.6) k/uL RBC (3.80-5.40) m/uL Hgb (11.4-16.0) gm/dL Hct (34.0-46.0) % MCV (80.0-100.0) fL MCH (25.0-35.0) pg MCHC (31.0-37.0) g/dL RDW (11.5-15.5) % Plt Count (150-450) k/uL MPV Neutrophils % Neutrophils % (Manual) % Band Neuts % (Manual) % Lymphocytes % Lymphocytes % (Manual) % Monocytes % Monocytes % (Manual) % Eosinophils % Eosinophils % (Manual) % Basophils % Neutrophils # Neutrophils # (Manual) (1.3-7.7) k/uL Lymphocytes # Lymphocytes # (Manual) (1.0-4.8) k/uL Monocytes # Monocytes # (Manual) (0-1.0) k/uL Eosinophils # Eosinophils # (Manual) (0-0.7) k/uL Basophils # Nucleated RBCs (0-0) /100 WBC Manual Slide Review Hypochromasia Anisocytosis PT (9.0-12.0) sec INR (<1.2) APTT (22.0-30.0) sec Sodium (137-145) mmol/L Potassium (3.5-5.1) mmol/L Chloride (98-107) mmol/L Carbon Dioxide (22-30) mmol/L Anion Gap mmol/L BUN (7-17) mg/dL Creatinine (0.52-1.04) mg/dL Est GFR (CKD-EPI)AfAm (>60 ml/min/1.73 sqM) Est GFR (CKD-EPI)NonAf (>60 ml/min/1.73 sqM) Glucose (74-99) mg/dL POC Glucose (mg/dL) 391 H (70-110) mg/dL POC Glu [place] [employer] Tomasz Wade Lactic Ac Sepsis Rflx Y Plasma Lactic Acid [place]on 3.1 H* (0.7-2.0) mmol/L Calcium (8.4-10.2) mg/dL Magnesium (1.6-2.3) mg/dL Total Bilirubin (0.2-1.3) mg/dL AST (14-36) U/L ALT (4-34) U/L Alkaline Phosphatase (38-126) U/L Troponin I (0.000-0.034) ng/mL Total Protein (6.3-8.2) g/dL Albumin (3.5-5.0) g/dL Urine Color Urine Appearance (Clear) Urine pH (5.0-8.0) Ur Specific [place] (1.001-1.035) Urine Protein (Negative) Urine Glucose (UA) (Negative) Urine Ketones (Negative) Urine Blood (Negative) Urine Nitrite (Negative) Urine Bilirubin (Negative) Urine Urobilinogen (<2.0) mg/dL Ur Leukocyte Esterase (Negative) Urine RBC (0-5) /hpf Urine WBC (0-5) /hpf Ur Squamous Epith Cells (0-4) /hpf Urine Bacteria (None) /hpf Urine Mucus (None) /hpf Group A Strep (PCR) (Not Detectd) 11/22/22 11/22/22 Range/Units 08:51 09:58 WBC (3.8-10.6) k/uL RBC (3.80-5.40) m/uL Hgb (11.4-16.0) gm/dL Hct (34.0-46.0) % MCV (80.0-100.0) fL MCH (25.0-35.0) pg MCHC (31.0-37.0) g/dL RDW (11.5-15.5) % Plt Count (150-450) k/uL MPV Neutrophils % Neutrophils % (Manual) % Band Neuts % (Manual) % Lymphocytes % Lymphocytes % (Manual) % Monocytes % Monocytes % (Manual) % Eosinophils % Eosinophils % (Manual) % Basophils % Neutrophils # Neutrophils # (Manual) (1.3-7.7) k/uL Lymphocytes # Lymphocytes # (Manual) (1.0-4.8) k/uL Monocytes # Monocytes # (Manual) (0-1.0) k/uL Eosinophils # Eosinophils # (Manual) (0-0.7) k/uL Basophils # Nucleated RBCs (0-0) /100 WBC Manual Slide Review Hypochromasia Anisocytosis PT (9.0-12.0) sec INR (<1.2) APTT (22.0-30.0) sec Sodium (137-145) mmol/L Potassium (3.5-5.1) mmol/L Chloride (98-107) mmol/L Carbon Dioxide (22-30) mmol/L Anion Gap mmol/L BUN (7-17) mg/dL Creatinine (0.52-1.04) mg/dL Est GFR (CKD-EPI)AfAm (>60 ml/min/1.73 sqM) Est GFR (CKD-EPI)NonAf (>60 ml/min/1.73 sqM) Glucose (74-99) mg/dL POC Glucose (mg/dL) 340 H 313 H (70-110) mg/dL POC Glu [employer] ID Valorie Rojas Tomasz Lactic Ac Sepsis Rflx Plasma Lactic Acid [place] (0.7-2.0) mmol/L Calcium (8.4-10.2) mg/dL Magnesium (1.6-2.3) mg/dL Total Bilirubin (0.2-1.3) mg/dL AST (14-36) U/L ALT (4-34) U/L Alkaline Phosphatase (38-126) U/L Troponin I (0.000-0.034) ng/mL Total Protein (6.3-8.2) g/dL Albumin (3.5-5.0) g/dL Urine Color Urine Appearance (Clear) Urine pH (5.0-8.0) Ur Specific [place] (1.001-1.035) Urine Protein (Negative) Urine Glucose (UA) (Negative) Urine Ketones (Negative) Urine Blood (Negative) Urine Nitrite (Negative) Urine Bilirubin (Negative) Urine Urobilinogen (<2.0) mg/dL Ur Leukocyte Esterase (Negative) Urine RBC (0-5) /hpf Urine WBC (0-5) /hpf Ur Squamous Epith Cells (0-4) /hpf Urine Bacteria (None) /hpf Urine Mucus (None) /hpf Group A Strep (PCR) (Not Detectd) Disposition <Kenneth Marie - Last Filed: 11/22/22 04:00> Is patient prescribed a controlled substance at d/c from ED?: No Time of Disposition: 10:30 <Hernandez,Servando - Last Filed: 11/22/22 10:30> Clinical Impression: Hyperglycemia Disposition: HOME SELF-CARE Condition: Stable Instructions (If sedation given, give patient instructions): Diabetic Hyperglycemia (ED) Additional Instructions: Please do follow-up through primary care physician in the next day or 2 for recheck. Return for increased blood sugar, vomiting, not feeling well, fevers, worsening or changing symptoms or any other concerns. Please check blood sugar at least 4 times daily. Referrals: Guillermo Cerda MD [Primary Care Provider] - 1-2 days
[2022-11-22 02:41] LABS: Anisocytosis Slight; HCT 46.2 % (34.0-46.0); HGB 14.7 gm/dL (11.4-16.0); Hypochromasia Slight; INR 0.9 (<1.2); MCH 27.5 pg (25.0-35.0); MCHC 31.8 g/dL (31.0-37.0); MCV 86.4 fL (80.0-100.0); Mean Platelet Volume 7.9; Partial Thromboplastin Time 22.6 sec (22.0-30.0); Platelet Count 565 k/uL (150-450); Prothrombin Time 9.4 sec (9.0-12.0); RBC 5.34 m/uL (3.80-5.40); RDW 16.6 % (11.5-15.5); WBC 9.7 k/uL (3.8-10.6)
[2022-11-22 02:52] LABS: Appearance,Urine Clear (Clear); Bacteria,Urine Occasional /hpf; Bilirubin,Urine Negative (Negative); Blood,Urine Negative (Negative); Color,Urine Colorless; Glucose,Urine (UA) 4+ (Negative); Ketones,Urine Negative (Negative); Leukocyte Esterase,Urine Moderate (Negative); Mucus,Urine Rare /hpf; Nitrite,Urine Negative (Negative); PH, Urine 5.5 (5.0-8.0); Protein,Urine 1+ (Negative); RBC,Urine 2 /hpf (0-5); Specific Gravity,Urine 1.025 (1.001-1.035); Squamous Epithelial Cell,Urine 5 /hpf (0-4); Urobilinogen,Urine <2.0 mg/dL (<2.0); WBC,Urine 4 /hpf (0-5)
[2022-11-22 03:07] LABS: Band Neutrophils % 2 %; Eosinophils # (M) 0.19 k/uL (0-0.7); Lymphocytes # (M) 2.52 k/uL (1.0-4.8); Monocytes # (M) 0.78 k/uL (0-1.0); Neutrophils % (M) 62 %; Nucleated Red Blood Cells 0 /100 WBC (0-0); Total Cells Counted 100
[2022-11-22 03:10] LABS: ALT 24 U/L (4-34); AST 26 U/L (14-36); African American GFR (CKD) >90 (>60 ml/min/1.73 sqM); Albumin 3.8 g/dL (3.5-5.0); Alkaline Phosphatase 212 U/L (38-126); Anion Gap 15 mmol/L; Blood Urea Nitrogen 18 mg/dL (7-17); Calcium 9.6 mg/dL (8.4-10.2); Carbon Dioxide 22 mmol/L (22-30); Chloride 89 mmol/L (98-107); Magnesium 1.7 mg/dL (1.6-2.3); Non-African American GFR(CKD) >90 (>60 ml/min/1.73 sqM); Potassium 4.6 mmol/L (3.5-5.1); Sodium 126 mmol/L (137-145); Total Bilirubin 0.6 mg/dL (0.2-1.3); Total Protein 7.4 g/dL (6.3-8.2)
[2022-11-22] MEDS ORDERED: INSULIN REGULAR 100 UNIT/ML VIAL (IV) IV ONE (03:13)
[2022-11-22 03:40] LABS: Glucose,Whole Blood >600 mg/dL (70-110)
[2022-11-22] MEDS ORDERED: SODIUM CHLORIDE 0.9% 500 ML 500 ML IV ONE (03:57)
[2022-11-22] MEDS ORDERED: SODIUM CHLORIDE 0.9% 1,000 ML IV ONE ×2 (03:59→04:49)
[2022-11-22] MEDS: SODIUM CHLORIDE 0.9% 1,000 ML IV SCH ×2 (04:19→10:52)
[2022-11-22 04:26] LABS: Glucose 789 mg/dL (74-99)
[2022-11-22 04:55] LABS: Glucose,Whole Blood 496 mg/dL (70-110)
--- NOTE | 2022-11-22 06:07 | XR ---
EXAMINATION TYPE: XR chest 2V DATE OF EXAM: 11/22/2022 4:37 AM COMPARISON: Chest radiographs from 11/11/2022 TECHNIQUE: XR chest 2V Frontal and lateral views of the chest. CLINICAL INDICATION:Female, 52 years old with history of weakness; FINDINGS: Lungs/Pleura: There is no evidence of pleural effusion, focal consolidation, or pneumothorax. Pulmonary vascularity: Unremarkable. Heart/mediastinum: Cardiomediastinal silhouette is unremarkable. Musculoskeletal: No acute osseous pathology. IMPRESSION: No acute cardiopulmonary disease/process.
[2022-11-22 06:24] LABS: Glucose,Whole Blood 487 mg/dL (70-110)
[2022-11-22 06:28] LABS: ALT 22 U/L (4-34); AST 25 U/L (14-36); African American GFR (CKD) >90 (>60 ml/min/1.73 sqM); Albumin 3.4 g/dL (3.5-5.0); Alkaline Phosphatase 168 U/L (38-126); Anion Gap 10 mmol/L; Blood Urea Nitrogen 14 mg/dL (7-17); Calcium 8.4 mg/dL (8.4-10.2); Carbon Dioxide 20 mmol/L (22-30); Chloride 101 mmol/L (98-107); Glucose 488 mg/dL (74-99); Non-African American GFR(CKD) >90 (>60 ml/min/1.73 sqM); Potassium 4.3 mmol/L (3.5-5.1); Sodium 131 mmol/L (137-145); Total Bilirubin 0.4 mg/dL (0.2-1.3); Total Protein 6.5 g/dL (6.3-8.2)
[2022-11-22] MEDS ORDERED: INSULIN ASPART (NovoLOG) 100 UNIT/ML VIAL SQ ONE (06:38)
[2022-11-22 07:41] LABS: Glucose,Whole Blood 391 mg/dL (70-110)
[2022-11-22] MEDS ORDERED: INSULIN REGULAR 100 UNIT/ML VIAL (IM/SQ) SQ ONE ×2 (07:45→09:23)
[2022-11-22 08:52] LABS: Glucose,Whole Blood 340 mg/dL (70-110)
[2022-11-22 10:00] LABS: Glucose,Whole Blood 313 mg/dL (70-110)
[2022-11-22 11:08] LABS: Glucose,Whole Blood 265 mg/dL (70-110)
[2022-11-22 11:10] VITALS: BP 140/85; PULSE 72
== END 2022-11-22 11:18 | disposition home or self-care (01) ==
LOC: EC 01:02
DX: E11.65 Type 2 diabetes mellitus with hyperglycemia (principal); E78.5 Hyperlipidemia, unspecified; I10 Essential (primary) hypertension; K21.9 Gastro-esophageal reflux disease without esophagitis; F17.290 Nicotine dependence, other tobacco product, uncomplicated; Z88.1 Allergy status to other antibiotic agents; Z79.84 Long term (current) use of oral hypoglycemic drugs; Z79.899 Other long term (current) drug therapy
CPT/HCPCS: 36415; 71046; 80053; 81001; 83605; 83735; 84484; 85025; 85610; 85730; 87651; 93005; 96360; 96361; 99285

== ENCOUNTER 2022-11-26 03:57 | Observation (INO) | payer MEDICARE ==
[2022-11-26 04:05] LABS: Glucose,Whole Blood >600 mg/dL (70-110)
[2022-11-26] MEDS ORDERED: SODIUM CHLORIDE 0.9% 1,000 ML IV ONE ×2 (04:06→05:14)
[2022-11-26] MEDS ORDERED: INSULIN ASPART (NovoLOG) 100 UNIT/ML VIAL SQ ONE (04:11)
--- NOTE | 2022-11-26 04:39 | ED ---
General Adult HPI - General Chief complaint: Weakness Stated complaint: Weakness Time Seen by Provider: 11/26/22 04:05 Source: patient Mode of arrival: EMS - History of Present Illness Initial comments: This is a 52-year-old female who is well-known to the emergency department [facility] emergency department once again for not feeling good and stating that she has not taken her insulin. The patient had the same exact presentation as several days ago. The patient stated that she still does not have her insulin and feels "not good." The patient is a poor historian and does not provide any further history but states that she is still medically noncompliant as she is still waiting for medications in the mail. The patient denied any other acute pain or distress or any other changes from her previous visits to the emergency department. - Related Data Home Medications Medication Instructions Recorded Confirmed Atorvastatin [Lipitor] 80 mg PO HS 06/25/19 03/03/22 lisinopriL 40 mg PO DAILY 09/24/20 03/03/22 metFORMIN HCL [Glucophage] 500 mg PO DAILY 09/24/20 03/03/22 traZODone HCL 50 - 100 mg PO HS PRN 01/11/21 03/03/22 Ergocalciferol (Vitamin D2) 1,250 mcg PO TU 03/03/21 03/03/22 [Drisdol (50,000 Iu)] Albuterol Inhaler [Ventolin Hfa 2 puff INHALATION RT-QID PRN 07/28/21 03/03/22 Inhaler] Esomeprazole Magnesium [NexIUM] 20 mg PO DAILY 01/30/22 03/03/22 Previous Rx's Medication Instructions Recorded INSULIN ASPART (NovoLOG) [NovoLOG 30 unit SQ AC-TID #10 ml 02/06/22 (formulary)] Insulin Detemir (Levemir) [Levemir] 90 unit SQ DAILY@0700 30 Days #1 02/06/22 pen Doxycycline Hyclate 100 mg PO BID 10 Days #20 tab 03/08/22 Sulfamethox-Tmp 800-160Mg [Bactrim 1 tab PO Q12HR 10 Days #20 tab 04/29/22 DS 800-160 mg] Sulfamethox-Tmp 800-160Mg [Bactrim 1 tab PO Q12HR #28 tab 09/01/22 DS 800-160 mg] Cephalexin [Keflex] 500 mg PO Q6HR #40 cap 09/08/22 Insulin Aspart [NovoLOG] 30 units SQ AC-TID 30 Days #10 ml 09/15/22 Insulin Detemir (Levemir) [Levemir] 90 unit SQ DAILY 30 Days #1 pen 09/15/22 Famotidine 20 mg PO DAILY 7 Days #7 tab 11/11/22 Allergies Allergy/AdvReac Type Severity Reaction Status Date / Time levofloxacin [From Levaquin] Allergy Rash/Hives Verified 11/26/22 04:03 Review of Systems ROS Statement: Those systems with pertinent positive or pertinent negative responses have been documented in the HPI. ROS Other: All systems not noted in ROS Statement are negative. Past Medical History Past Medical History: Diabetes Mellitus, GERD/Reflux, Hyperlipidemia, Hypertension, Syncope Additional Past Medical History / Comment(s): Pt recently admitted to [facility] on 07/21/21 with uncontrolled IDDM and hyperkalemia. Other hx: Recurrent pancreatitis, hypertriglyceridemia, elevated lipase, IDDM type II, UTI, chronic low back pain, bulging discs, dental abscesses in past. History of Any Multi-Drug Resistant Organisms: MRSA Date of last positivie culture/infection: 04/29/22 MDRO Source:: Buttock Past Surgical History: Tubal Ligation Additional Past Surgical History / Comment(s): Age 7 had VSD repair Past Anesthesia/Blood Transfusion Reactions: No Reported Reaction Past Psychological History: No Psychological Hx Reported Smoking Status: Former smoker, Second hand smoke exposure, Vaper Past Alcohol Use History: None Reported Past Drug Use History: None Reported - Past Family History Mother Family Medical History: No Reported History Additional Family Medical History / Comment(s): Mother was healthy. She is , pt cannot recall cause of . Father Family Medical History: Pneumonia Additional Family Medical History / Comment(s): Father at the age of 67yrs from pneumonia General Exam Limitations: no limitations General appearance: alert, in no apparent distress, obese Head exam: Present: atraumatic, normocephalic, normal inspection Eye exam: Present: normal appearance, PERRL Pupils: Present: normal accommodation ENT exam: Present: normal exam, normal oropharynx, mucous membranes moist Neck exam: Present: normal inspection, full ROM Respiratory exam: Present: normal lung sounds bilaterally Cardiovascular Exam: Present: regular rate, normal rhythm, normal heart sounds GI/Abdominal exam: Present: soft, normal bowel sounds Extremities exam: Present: normal inspection, full ROM Back exam: Present: normal inspection, full ROM Neurological exam: Present: alert, oriented X3, CN II-XII intact Psychiatric exam: Present: normal affect, normal mood Skin exam: Present: warm, dry Course Vital Signs 11/26/22 03:59 Temperature 98.0 F Pulse Rate 69 Respiratory 19 Rate Blood Pressure 146/86 O2 Sat by Pulse 95 Oximetry Medical Decision Making - Medical Decision Making Was pt. sent in by a medical professional or institution (ROSALIE Flaherty, DUMPCART DRIVER, urgent care, hospital, or long-term...) When possible be specific @ -No Did you speak to anyone other than the patient for history (EMS, parent, family, police, friend...)? What history was obtained from this source @ -No Did you review nursing and triage notes (agree or disagree)? Why? @ -I reviewed and agree with nursing and triage notes Were old charts reviewed (outside hosp., previous admission, EMS record, old EKG, old radiological studies, urgent care reports/EKG's, long-term records)? Report findings @ -Previous visits were reviewed Differential Diagnosis (chest pain, altered mental status, abdominal pain women, abdominal pain men, vaginal bleeding, weakness, fever, dyspnea, syncope, headache, dizziness, GI bleed, back pain, seizure, CVA, palpatations, mental health)? @ -Hyperglycemia, electrolyte abnormality, medical noncompliance EKG interpreted by me (3pts min.). @ -None X-rays interpreted by me (1pt min.). @ -None done CT interpreted by me (1pt min.). @ -None done U/S interpreted by me (1pt. min.). @ -None done What testing was considered but not performed or refused? (CT, X-rays, U/S, labs)? Why? @ -None What meds were considered but not given or refused? Why? @ -None Did you discuss the management of the patient with other professionals (professionals i.e. ROSALIE Flaherty, DUMPCART DRIVER, lab, RT, psych nurse, social services coordinator, controller repairer and tester, teacher, interface control officer, machine adjuster leader case trim)? Give summary @ -No Was smoking cessation discussed for >3mins.? @ -No Was critical care preformed (if so, how long)? @ -No Were there social determinants of health that impacted care today? How? (Homelessness, low income, unemployed, alcoholism, drug addiction, transportation, low edu. Level, literacy, decrease access to med. care, usp, rehab)? @ -Medical noncompliance Was there de-escalation of care discussed even if they declined (Discuss DNR or withdrawal of care, Hospice)? DNR status @ -No What co-morbidities impacted this encounter? (DM, HTN, Smoking, COPD, CAD, Cancer, CVA, ARF, Chemo, Hep., AIDS, mental health diagnosis, sleep apnea, morbid obesity)? @ -Diabetes Was patient admitted / discharged? Hospital course, mention meds given and route, prescriptions, significant lab abnormalities, going to OR and other pertinent info. @ -The patient was seen and evaluated in emergency department. Physical exam, the patient was resting in bed without any acute distress. Vital signs admission were stable. Due to the nature the patient's complaints in the setting of medical noncompliance and multiple visits for the same reasoning, laboratory workup was obtained. The patient did receive normal saline fluid as well as subcutaneous insulin. Laboratory workup was obtained that showed a glucose level of 954 and was higher than any previous results. Due to the patient's continued elevated blood sugar medical noncompliance and the increased amount of time required to decrease the patient's glucose level to normal, the patient will receive continued fluid resuscitation and insulin and will be placed observation for continued management. The patient was agreeable to this and was placed observation in stable condition. Undiagnosed new problem with uncertain prognosis? @ -No Drug Therapy requiring intensive monitoring for toxicity (Heparin, Nitro, Insulin, Cardizem)? @ -No Were any procedures done? @ -No Diagnosis/symptom? @ -Hyperglycemia secondary to medical noncompliance Acute, or Chronic, or Acute on Chronic? @ -Chronic Uncomplicated (without systemic symptoms) or Complicated (systemic symptoms)? @ -Complicated Side effects of treatment? @ -No Exacerbation, Progression, or Severe Exacerbation? @ -No Poses a threat to life or bodily function? How? (Chest pain, [place], [place], pneumonia, PE, COPD, DKA, ARF, appy, cholecystitis, CVA, Diverticulitis, Homicidal, Suicidal, threat to staff... and all critical care pts) @ -No - Lab Data Result diagrams: 11/26/22 04:24 11/26/22 04:24 Lab Results 11/26/22 11/26/22 11/26/22 Range/Units 04:04 04:24 04:24 WBC 10.5 (3.8-10.6) k/uL RBC 5.47 H (3.80-5.40) m/uL Hgb 14.7 (11.4-16.0) gm/dL Hct 45.9 (34.0-46.0) % MCV 83.9 (80.0-100.0) fL MCH 26.8 (25.0-35.0) pg MCHC 31.9 (31.0-37.0) g/dL RDW 16.5 H (11.5-15.5) % Plt Count 556 H (150-450) k/uL MPV 7.9 Neutrophils % 65 % Lymphocytes % 26 % Monocytes % 5 % Eosinophils % 2 % Basophils % 0 % Neutrophils # 6.9 (1.3-7.7) k/uL Lymphocytes # 2.7 (1.0-4.8) k/uL Monocytes # 0.5 (0-1.0) k/uL Eosinophils # 0.2 (0-0.7) k/uL Basophils # 0.0 (0-0.2) k/uL Hypochromasia Slight Anisocytosis Slight Carbon Dioxide 22 (22-30) mmol/L BUN 17 (7-17) mg/dL Creatinine 0.61 (0.52-1.04) mg/dL Est GFR (CKD-EPI)AfAm >90 (>60 ml/min/1.73 sqM) Est GFR (CKD-EPI)NonAf >90 (>60 ml/min/1.73 sqM) Glucose 954 H* (74-99) mg/dL POC Glucose (mg/dL) >600 H (70-110) mg/dL POC Glu Screener And Blender ID Kimberley [place] Calcium 9.4 (8.4-10.2) mg/dL Magnesium 1.5 L (1.6-2.3) mg/dL Total Bilirubin 0.5 (0.2-1.3) mg/dL AST 26 (14-36) U/L ALT 25 (4-34) U/L Alkaline Phosphatase 181 H (38-126) U/L Troponin I (0.000-0.034) ng/mL Total Protein 7.2 (6.3-8.2) g/dL Albumin 3.8 (3.5-5.0) g/dL Lipase 263 (23-300) U/L 11/26/22 Range/Units 04:24 WBC (3.8-10.6) k/uL RBC (3.80-5.40) m/uL Hgb (11.4-16.0) gm/dL Hct (34.0-46.0) % MCV (80.0-100.0) fL MCH (25.0-35.0) pg MCHC (31.0-37.0) g/dL RDW (11.5-15.5) % Plt Count (150-450) k/uL MPV Neutrophils % % Lymphocytes % % Monocytes % % Eosinophils % % Basophils % % Neutrophils # (1.3-7.7) k/uL Lymphocytes # (1.0-4.8) k/uL Monocytes # (0-1.0) k/uL Eosinophils # (0-0.7) k/uL Basophils # (0-0.2) k/uL Hypochromasia Anisocytosis Carbon Dioxide (22-30) mmol/L BUN (7-17) mg/dL Creatinine (0.52-1.04) mg/dL Est GFR (CKD-EPI)AfAm (>60 ml/min/1.73 sqM) Est GFR (CKD-EPI)NonAf (>60 ml/min/1.73 sqM) Glucose (74-99) mg/dL POC Glucose (mg/dL) (70-110) mg/dL POC Glu Screener And Blender ID Calcium (8.4-10.2) mg/dL Magnesium (1.6-2.3) mg/dL Total Bilirubin (0.2-1.3) mg/dL AST (14-36) U/L ALT (4-34) U/L Alkaline Phosphatase (38-126) U/L Troponin I <0.012 (0.000-0.034) ng/mL Total Protein (6.3-8.2) g/dL Albumin (3.5-5.0) g/dL Lipase (23-300) U/L Disposition Clinical Impression: Hyperglycemia, Medical non-compliance Disposition: ADMITTED IP TO THIS [facility] Condition: Stable Is patient prescribed a controlled substance at d/c from ED?: No Referrals: Guillermo Cerda MD [Primary Care Provider] - 1-2 days Time of Disposition: 05:15 Decision to Admit Reason: Admit from EC Decision Date: 11/26/22 Decision Time: 05:15
[2022-11-26 04:43] LABS: Anisocytosis Slight; Basophils % (A) 0 %; Eosinophils # (A) 0.2 k/uL (0-0.7); Eosinophils % (A) 2 %; HCT 45.9 % (34.0-46.0); HGB 14.7 gm/dL (11.4-16.0); Hypochromasia Slight; Lymphocytes # (A) 2.7 k/uL (1.0-4.8); Lymphocytes % (A) 26 %; MCH 26.8 pg (25.0-35.0); MCHC 31.9 g/dL (31.0-37.0); MCV 83.9 fL (80.0-100.0); Mean Platelet Volume 7.9; Monocytes # (A) 0.5 k/uL (0-1.0); Monocytes % (A) 5 %; Neutrophils # (A) 6.9 k/uL (1.3-7.7); Neutrophils % (A) 65 %; Platelet Count 556 k/uL (150-450); RBC 5.47 m/uL (3.80-5.40); RDW 16.5 % (11.5-15.5); WBC 10.5 k/uL (3.8-10.6)
[2022-11-26 04:56] LABS: ALT 25 U/L (4-34); AST 26 U/L (14-36); African American GFR (CKD) >90 (>60 ml/min/1.73 sqM); Albumin 3.8 g/dL (3.5-5.0); Alkaline Phosphatase 181 U/L (38-126); Blood Urea Nitrogen 17 mg/dL (7-17); Calcium 9.4 mg/dL (8.4-10.2); Carbon Dioxide 22 mmol/L (22-30); Lipase 263 U/L (23-300); Magnesium 1.5 mg/dL (1.6-2.3); Non-African American GFR(CKD) >90 (>60 ml/min/1.73 sqM); Total Bilirubin 0.5 mg/dL (0.2-1.3); Total Protein 7.2 g/dL (6.3-8.2)
[2022-11-26 05:10] LABS: Glucose 954 mg/dL (74-99)
[2022-11-26] MEDS ORDERED: NALOXONE 0.4 MG/ML 1 ML VIAL IV PRN (05:17)
[2022-11-26 05:19] LABS: Potassium 4.5 mmol/L (3.5-5.1); Sodium 124 mmol/L (137-145)
[2022-11-26 05:21] LABS: Anion Gap 13 mmol/L; Chloride 89 mmol/L (98-107)
[2022-11-26] MEDS: SODIUM CHLORIDE 0.9% 1,000 ML IV SCH ×2 (05:29→19:20)
[2022-11-26 05:53] LABS: Appearance,Urine Clear (Clear); Bacteria,Urine Rare /hpf; Bilirubin,Urine Negative (Negative); Blood,Urine Negative (Negative); Color,Urine Light Yellow; Glucose,Urine (UA) 4+ (Negative); Ketones,Urine Negative (Negative); Leukocyte Esterase,Urine Large (Negative); Nitrite,Urine Negative (Negative); PH, Urine 5.5 (5.0-8.0); Protein,Urine 1+ (Negative); RBC,Urine 3 /hpf (0-5); Specific Gravity,Urine 1.023 (1.001-1.035); Squamous Epithelial Cell,Urine 2 /hpf (0-4); Urobilinogen,Urine <2.0 mg/dL (<2.0); WBC,Urine 3 /hpf (0-5)
[2022-11-26 07:35] LABS: Glucose,Whole Blood 350 mg/dL (70-110)
[2022-11-26 12:14] LABS: Glucose,Whole Blood 520 mg/dL (70-110)
[2022-11-26] MEDS: INSULIN ASPART (NovoLOG) 100 UNIT/ML VIAL SQ SCH ×4 (13:05→20:49)
[2022-11-26] MEDS: INSULIN DETEMIR (LEVEMIR) 100 UNIT/ML SYR SQ SCH (13:06)
[2022-11-26] MEDS: HYDROmorphone 0.5 MG/0.5 ML SYRINGE IVP PRN (14:12)
[2022-11-26] MEDS: DEXTROSE 5%-0.45% NACL 1,000 ML IV SCH ×2 (14:13→19:21)
[2022-11-26 16:45] LABS: Glucose,Whole Blood 356 mg/dL (70-110)
[2022-11-26 17:49] LABS: Estimated Average Glucose >470 mg/dL
[2022-11-26 20:45] LABS: Glucose,Whole Blood 266 mg/dL (70-110)
[2022-11-26] MEDS: ATORVASTATIN 80 MG TAB PO SCH (20:49)
[2022-11-26] MEDS: traZODone HCL 50 MG TAB PO PRN (23:47)
[2022-11-27] MEDS: DEXTROSE 5%-0.45% NACL 1,000 ML IV SCH ×4 (01:10→22:08)
--- NOTE | 2022-11-27 06:06 | HP ---
HISTORY AND PHYSICAL CHIEF COMPLAINT: Hyperglycemia and uncontrolled diabetes. HISTORY OF PRESENT ILLNESS: This is another admission for this 52-year-old noncompliant female. She came to the emergency room with a blood sugar over 600, stating that she has not taken her insulin for months. She has had a history of pancreatitis in the past as well. REVIEW OF SYSTEMS: She has been vomiting. She is dehydrated. She denies any chest pain, shortness of breath, focal neurologic problems, confusion, abdominal pain, diarrhea, melena, etc. Past medical history, family history, personal and social histories are all otherwise noncontributory. PHYSICAL EXAMINATION: VITAL SIGNS: Blood pressure is 128/88 with a pulse of 106, respirations of 35. She is afebrile. GENERAL: She appeared to be obese and dehydrated. HEAD, EARS, EYES, NOSE, MOUTH AND THROAT: Otherwise normal. CHEST: Clear. CARDIAC: Demonstrated tachycardia. ABDOMEN: Protuberant. Soft, nontender. There are no masses or visceromegaly. EXTREMITIES: Normal. NEUROLOGICAL: She is intact. IMPRESSION: She is admitted to the hospital with diagnoses of: 1. Uncontrolled diabetes mellitus. 2. Obesity. 3. History of pancreatitis. 4. Dehydration. PLAN: 1. Bed rest. 2. IV fluids. 3. Rehydrate. 4. Control blood sugars. MMODL / IJN: [id number] /
[2022-11-27 06:48] LABS: Glucose,Whole Blood 306 mg/dL (70-110)
[2022-11-27] MEDS: INSULIN DETEMIR (LEVEMIR) 100 UNIT/ML SYR SQ SCH (06:48)
[2022-11-27 08:23] LABS: Glucose,Whole Blood 304 mg/dL (70-110)
[2022-11-27] MEDS: HYDROmorphone 0.5 MG/0.5 ML SYRINGE IVP PRN ×3 (09:03→21:37)
[2022-11-27] MEDS: lisinopriL 20 MG TAB PO SCH (09:04)
[2022-11-27] MEDS: metFORMIN 500 MG TAB PO SCH (09:04)
[2022-11-27] MEDS: INSULIN ASPART (NovoLOG) 100 UNIT/ML VIAL SQ SCH ×7 (09:04→20:34)
[2022-11-27] MEDS: SODIUM CHLORIDE 0.9% 1,000 ML IV SCH ×2 (10:43→22:08)
[2022-11-27] MEDS ORDERED: ALBUTEROL NEBULIZED 2.5 MG/3 ML INHALATION PRN (11:04)
[2022-11-27 11:49] LABS: Glucose,Whole Blood 267 mg/dL (70-110)
[2022-11-27] MEDS ORDERED: INSULIN DETEMIR (LEVEMIR) 100 UNIT/ML SYR SQ ONE (12:00)
[2022-11-27 12:59] LABS: ALT 22 U/L (4-34); African American GFR (CKD) >90 (>60 ml/min/1.73 sqM); Albumin/Globulin Ratio 0.9; Anion Gap 8 mmol/L; Blood Urea Nitrogen 14 mg/dL (7-17); Calcium 8.7 mg/dL (8.4-10.2); Carbon Dioxide 22 mmol/L (22-30); Chloride 102 mmol/L (98-107); Globulin 3.2 g/dL; Glucose 252 mg/dL (74-99); Non-African American GFR(CKD) >90 (>60 ml/min/1.73 sqM); Sodium 132 mmol/L (137-145); Total Bilirubin 0.6 mg/dL (0.2-1.3); Total Protein 6.2 g/dL (6.3-8.2)
[2022-11-27 13:01] LABS: AST 37 U/L (14-36); Alkaline Phosphatase 122 U/L (38-126); Potassium 4.8 mmol/L (3.5-5.1)
[2022-11-27 17:15] LABS: Glucose,Whole Blood 166 mg/dL (70-110)
[2022-11-27 20:25] LABS: Glucose,Whole Blood 297 mg/dL (70-110)
[2022-11-27] MEDS: ATORVASTATIN 80 MG TAB PO SCH (20:34)
[2022-11-27] MEDS: traZODone HCL 50 MG TAB PO PRN (21:38)
[2022-11-28] MEDS: DEXTROSE 5%-0.45% NACL 1,000 ML IV SCH ×3 (02:35→16:56)
[2022-11-28] MEDS: HYDROmorphone 0.5 MG/0.5 ML SYRINGE IVP PRN ×4 (04:15→22:06)
[2022-11-28] MEDS: SODIUM CHLORIDE 0.9% 1,000 ML IV SCH ×2 (04:20→19:36)
[2022-11-28 07:08] LABS: Glucose,Whole Blood 230 mg/dL (70-110)
[2022-11-28] MEDS: metFORMIN 500 MG TAB PO SCH (08:24)
[2022-11-28] MEDS: FAMOTIDINE 20 MG TAB PO SCH (08:24)
[2022-11-28] MEDS: lisinopriL 20 MG TAB PO SCH (08:24)
[2022-11-28] MEDS: FENOFIBRATE 160 MG TAB PO SCH (08:24)
[2022-11-28] MEDS: PANTOPRAZOLE 40 MG TABLET PO SCH (08:24)
[2022-11-28] MEDS: INSULIN DETEMIR (LEVEMIR) 100 UNIT/ML SYR SQ SCH (08:25)
[2022-11-28] MEDS: INSULIN ASPART (NovoLOG) 100 UNIT/ML VIAL SQ SCH ×7 (08:25→21:33)
[2022-11-28 12:19] LABS: Glucose,Whole Blood 174 mg/dL (70-110)
[2022-11-28 14:17] VITALS: BMI 36.1
[2022-11-28 17:25] LABS: Glucose,Whole Blood 93 mg/dL (70-110)
[2022-11-28] MEDS: ATORVASTATIN 80 MG TAB PO SCH (19:36)
--- NOTE | 2022-11-28 20:42 | PN ---
PROGRESS NOTE DATE OF SERVICE: 11/27/2022 LOCATION: She was in the emergency room, 398. CHIEF COMPLAINT: Dizziness, lightheadedness, and nausea with uncontrolled diabetes. HISTORY OF PRESENT ILLNESS: This lady is improving. Nausea is gone. Sugars are still quite high. We will increase her insulin. PHYSICAL EXAMINATION: VITAL SIGNS: Normal. CHEST: Clear. CARDIAC: Normal. ABDOMEN: Soft and nontender. EXTREMITIES: Normal. IMPRESSION: 1. Uncontrolled diabetes mellitus due to noncompliance. 2. History of pancreatitis. PLAN: Continue with IV fluids and increase her insulin dosage. MMODL / IJN: [id number] /
--- NOTE | 2022-11-28 20:56 | PN ---
PROGRESS NOTE DATE OF SERVICE: 11/28/2022 CHIEF COMPLAINT: Uncontrolled diabetes. HISTORY OF PRESENT ILLNESS: This lady is better. Blood sugars are coming down. She has no abdominal pain. She has a small lesion on the right side of her abdomen she is worried about. PHYSICAL EXAMINATION: CHEST: Clear. CARDIAC: Normal. ABDOMEN: Soft and protuberant. There is an area in the right side of the abdomen which may be a small focal area of cellulitis. IMPRESSION: 1. Uncontrolled type 1 diabetes mellitus due to noncompliance. 2. Dehydration. 3. Lesion on the right side of the abdominal wall. PLAN: Continue to manage her blood sugars and probably home soon. MMODL / IJN: [id number] /
[2022-11-28 20:57] LABS: Glucose,Whole Blood 172 mg/dL (70-110)
[2022-11-29] MEDS: DEXTROSE 5%-0.45% NACL 1,000 ML IV SCH ×2 (02:16→08:33)
[2022-11-29] MEDS: HYDROmorphone 0.5 MG/0.5 ML SYRINGE IVP PRN ×2 (04:02→10:05)
[2022-11-29 07:55] LABS: Glucose,Whole Blood 259 mg/dL (70-110)
[2022-11-29 08:25] VITALS: RESP 16
[2022-11-29] MEDS: metFORMIN 500 MG TAB PO SCH (08:27)
[2022-11-29] MEDS: lisinopriL 20 MG TAB PO SCH (08:27)
[2022-11-29] MEDS: FENOFIBRATE 160 MG TAB PO SCH (08:27)
[2022-11-29] MEDS: PANTOPRAZOLE 40 MG TABLET PO SCH (08:27)
[2022-11-29] MEDS: FAMOTIDINE 20 MG TAB PO SCH (08:27)
[2022-11-29] MEDS: INSULIN ASPART (NovoLOG) 100 UNIT/ML VIAL SQ SCH ×4 (08:28→12:54)
[2022-11-29] MEDS: INSULIN DETEMIR (LEVEMIR) 100 UNIT/ML SYR SQ SCH (08:28)
[2022-11-29 12:28] LABS: Glucose,Whole Blood 146 mg/dL (70-110)
[2022-11-29] MEDS: SODIUM CHLORIDE 0.9% 1,000 ML IV SCH (12:55)
[2022-11-29 13:07] VITALS: BP 138/63; PULSE 60; TEMP 98.3
--- NOTE | 2022-11-30 00:45 | DS ---
DISCHARGE SUMMARY CHIEF COMPLAINT: Uncontrolled diabetes. HISTORY OF PRESENT ILLNESS AND PHYSICAL EXAMINATION: Details of this lady's history and physical can be found in the initial workup. COURSE IN THE HOSPITAL: After admission, she was placed on bedrest, started on intravenous fluids and basal bolus insulin regimen. Sugars came down nicely. She had no other significant problems and it was felt she could be discharged on the . She will go home and follow up in the office. She is noncompliant. Whether or not she chooses to take her insulin, will be seen. FINAL DIAGNOSES: 1. Uncontrolled insulin-dependent diabetes mellitus due to noncompliance. 2. Dehydration. 3. Obesity. 4. History of hypertriglyceridemia and pancreatitis. OPERATIONS: None. CONSULTATION: None. She is improved. JUAN / GOOD: [id number] /
== END 2022-11-29 13:45 | disposition home or self-care (01) ==
LOC: EC 03:57 → 3SCARD 05:18 → 5NMEDONC 11-27 10:23
PROVIDERS: ADMIT Family Medicine; ATTEND Family Medicine
DX: E11.65 Type 2 diabetes mellitus with hyperglycemia (principal); E86.0 Dehydration; K21.9 Gastro-esophageal reflux disease without esophagitis; E78.5 Hyperlipidemia, unspecified; I10 Essential (primary) hypertension; G89.29 Other chronic pain; M54.50 Low back pain, unspecified; L98.8 Other specified disorders of the skin and subcutaneous tissue; E66.9 Obesity, unspecified; Z91.199 Patient's noncompliance with other medical treatment and regimen due to unspecified reason; Z87.19 Personal history of other diseases of the digestive system; Z87.891 Personal history of nicotine dependence; Z79.84 Long term (current) use of oral hypoglycemic drugs; Z79.4 Long term (current) use of insulin; Z79.899 Other long term (current) drug therapy; Z88.1 Allergy status to other antibiotic agents
CPT/HCPCS: 96376 ×4; 96372 ×5; 96361; 96374; 99285; 36415; 94640; 80053 ×2; 83690; 83735; 84484; 85025; 81001; 83036; G0378 ×5; J1170 ×4

== ENCOUNTER 2022-12-15 19:43 | Emergency (ER) | payer MEDICARE, OTHER ==
[2022-12-15 19:49] VITALS: RESP 16; TEMP 99.3
[2022-12-15 20:12] LABS: Glucose,Whole Blood 566 mg/dL (70-110)
[2022-12-15 20:31] LABS: ALT 23 U/L (4-34); AST 26 U/L (14-36); African American GFR (CKD) >90 (>60 ml/min/1.73 sqM); Albumin 3.6 g/dL (3.5-5.0); Alkaline Phosphatase 171 U/L (38-126); Anion Gap 13 mmol/L; Blood Urea Nitrogen 13 mg/dL (7-17); Carbon Dioxide 20 mmol/L (22-30); Chloride 96 mmol/L (98-107); Magnesium 1.3 mg/dL (1.6-2.3); Non-African American GFR(CKD) >90 (>60 ml/min/1.73 sqM); Potassium 4.1 mmol/L (3.5-5.1); Sodium 129 mmol/L (137-145); Total Bilirubin 0.4 mg/dL (0.2-1.3); Total Protein 6.9 g/dL (6.3-8.2)
[2022-12-15 20:36] LABS: INR 0.9 (<1.2); Partial Thromboplastin Time 22.3 sec (22.0-30.0)
[2022-12-15 20:38] LABS: Glucose 598 mg/dL (74-99)
[2022-12-15 20:42] LABS: Anisocytosis Slight; Basophils % (A) 0 %; Eosinophils # (A) 0.2 k/uL (0-0.7); Eosinophils % (A) 2 %; HGB 13.4 gm/dL (11.4-16.0); Hypochromasia Slight; Lymphocytes # (A) 2.6 k/uL (1.0-4.8); Lymphocytes % (A) 25 %; MCH 26.8 pg (25.0-35.0); MCV 83.7 fL (80.0-100.0); Mean Platelet Volume 8.4; Microcytosis Slight; Monocytes # (A) 0.4 k/uL (0-1.0); Monocytes % (A) 4 %; Neutrophils # (A) 6.9 k/uL (1.3-7.7); Neutrophils % (A) 67 %; Platelet Count 523 k/uL (150-450); RBC 5.01 m/uL (3.80-5.40); RDW 16.8 % (11.5-15.5); WBC 10.2 k/uL (3.8-10.6)
[2022-12-15] MEDS ORDERED: SODIUM CHLORIDE 0.9% 1,000 ML IV ONE ×2 (20:59→22:01)
[2022-12-15] MEDS ORDERED: INSULIN REGULAR 100 UNIT/ML VIAL (IM/SQ) SQ STA (21:11)
--- NOTE | 2022-12-15 21:46 | XR ---
EXAMINATION TYPE: XR chest 2V DATE OF EXAM: 12/15/2022 COMPARISON: 11/22/2022 INDICATION: Chest pain TECHNIQUE: Single frontal view of the chest is obtained. FINDINGS: The heart size is normal. The pulmonary vasculature is normal. The lungs are clear. IMPRESSION: 1. No acute pulmonary process.
[2022-12-15] MEDS ORDERED: INSULIN REGULAR 100 UNIT/ML VIAL (IM/SQ) SQ ONE (22:00)
[2022-12-15] MEDS ORDERED: ACETAMINOPHEN TAB 500 MG TAB PO STA (22:08)
[2022-12-15] MEDS ORDERED: KETOROLAC 15 MG/ML 1 ML VIAL IVP STA (22:09)
--- NOTE | 2022-12-15 22:52 | ED ---
General Adult HPI - General Chief complaint: Chest Pain Stated complaint: Chest pain Time Seen by Provider: 12/15/22 20:03 Source: patient, RN notes reviewed Mode of arrival: EMS Limitations: no limitations - History of Present Illness Initial comments: 52-year-old female presents emergency department for chief complaint of pain in her mid back that he states feels a shooting pain. She states that she fell in 2007 and hurt her back at that time. She states this is the same pain that she experiences from time to time. She admits that this comes in waves and is worse with certain movements. She also admits tenderness to her chest wall with palpat ion. She reports taking Tylenol earlier today and nothing since then. She denies any new injury. Denies loss of bowel or bladder function, saddle anesthesia. She also admits to cough. Denies fever, chills, headache, shortness of breath. - Related Data Home Medications Medication Instructions Recorded Confirmed Atorvastatin [Lipitor] 80 mg PO HS 06/25/19 12/15/22 lisinopriL 40 mg PO DAILY 09/24/20 12/15/22 metFORMIN HCL [Glucophage] 500 mg PO DAILY 09/24/20 12/15/22 traZODone HCL 50 mg PO HS PRN 01/11/21 12/15/22 Ergocalciferol (Vitamin D2) 1,250 mcg PO TU 03/03/21 12/15/22 [Drisdol (50,000 Iu)] Albuterol Inhaler [Ventolin Hfa 2 puff INHALATION RT-QID PRN 07/28/21 12/15/22 Inhaler] Esomeprazole Magnesium [NexIUM] 20 mg PO DAILY 01/30/22 12/15/22 Fenofibrate [Lofibra] 160 mg PO DAILY 11/26/22 12/15/22 INSULIN ASPART (NovoLOG) [NovoLOG 20 unit SQ AC-TID 11/26/22 12/15/22 (formulary)] Insulin Detemir (Levemir) [Levemir] 90 unit SQ HS 11/26/22 12/15/22 Allergies Allergy/AdvReac Type Severity Reaction Status Date / Time levofloxacin [From Levaquin] Allergy Rash/Hives Verified 12/15/22 21:06 Review of Systems ROS Statement: Those systems with pertinent positive or pertinent negative responses have been documented in the HPI. ROS Other: All systems not noted in ROS Statement are negative. Past Medical History Past Medical History: Diabetes Mellitus, GERD/Reflux, Hyperlipidemia, Hypertension, Syncope Additional Past Medical History / Comment(s): Pt recently admitted to [facility] on 07/21/21 with uncontrolled IDDM and hyperkalemia. Other hx: Recurrent pancreatitis, hypertriglyceridemia, elevated lipase, IDDM type II, UTI, chronic low back pain, bulging discs, dental abscesses in past. History of Any Multi-Drug Resistant Organisms: MRSA Date of last positivie culture/infection: 04/29/22 MDRO Source:: Buttock Past Surgical History: Tubal Ligation Additional Past Surgical History / Comment(s): Age 7 had VSD repair Past Anesthesia/Blood Transfusion Reactions: No Reported Reaction Past Psychological History: No Psychological Hx Reported Smoking Status: Former smoker, Second hand smoke exposure, Vaper Past Alcohol Use History: None Reported Past Drug Use History: None Reported - Past Family History Mother Family Medical History: No Reported History Additional Family Medical History / Comment(s): Mother was healthy. She is , pt cannot recall cause of . Father Family Medical History: Pneumonia Additional Family Medical History / Comment(s): Father at the age of 67yrs from pneumonia General Exam Limitations: no limitations General appearance: alert, in no apparent distress Head exam: Present: atraumatic, normocephalic, normal inspection Eye exam: Present: normal appearance, PERRL, EOMI. Absent: scleral icterus, conjunctival injection, periorbital swelling ENT exam: Present: normal exam, mucous membranes moist Neck exam: Present: normal inspection. Absent: tenderness, meningismus, lymphadenopathy Respiratory exam: Present: normal lung sounds bilaterally. Absent: respiratory distress, wheezes, rales, rhonchi, stridor Cardiovascular Exam: Present: regular rate, normal rhythm, normal heart sounds. Absent: systolic murmur, diastolic murmur, rubs, gallop, clicks GI/Abdominal exam: Present: soft, normal bowel sounds. Absent: distended, tenderness, guarding, rebound, rigid Extremities exam: Present: normal inspection, full ROM, normal capillary refill. Absent: tenderness, pedal edema, joint swelling, calf tenderness Back exam: Present: normal inspection Neurological exam: Present: alert, oriented X3 Psychiatric exam: Present: normal affect, normal mood Skin exam: Present: warm, dry, intact, rash (Intertrigo under breasts and abdomen) Course Vital Signs 12/15/22 12/15/22 12/15/22 19:45 20:09 21:51 Temperature 99.3 F Pulse Rate 58 L 52 L 45 L Respiratory 16 16 16 Rate Blood Pressure 176/99 151/85 154/71 O2 Sat by Pulse 95 97 97 Oximetry 12/16/22 00:04 Temperature Pulse Rate 49 L Respiratory 16 Rate Blood Pressure 173/94 O2 Sat by Pulse 98 Oximetry Medical Decision Making - Medical Decision Making Was pt. sent in by a medical professional or institution (, PA, DRUG ABUSE PROGRAM COORDINATOR, urgent care, hospital, or [facility]...) When possible be specific @ -No Did you speak to anyone other than the patient for history (EMS, parent, family, police, friend...)? What history was obtained from this source @ -No Did you review nursing and triage notes (agree or disagree)? Why? @ -I reviewed and agree with nursing and triage notes Were old charts reviewed (outside hosp., previous admission, EMS record, old EKG, old radiological studies, urgent care reports/EKG's, [facility] records)? Report findings @ -No old charts were reviewed Differential Diagnosis (chest pain, altered mental status, abdominal pain women, abdominal pain men, vaginal bleeding, weakness, fever, dyspnea, syncope, headache, dizziness, GI bleed, back pain, seizure, CVA, palpatations, mental health, musculoskeletal)? @ -Differential Back Pain: Strain, zoster, cauda equina syndrome, epidural abscess, vertebral osteomyelitis, discitis, fracture, subluxation, disc herniation, DJD, spinal stenosis, dissection, AAA, pancreatitis, peptic ulcer disease, pyelonephritis, kidney stone, this is not meant to be an all-inclusive list. EKG interpreted by me (3pts min.). @ -EKG at 2033 shows sinus bradycardia rate 57, CT 165, QRS 86; this was compared to prior EKG and is comparable X-rays interpreted by me (1pt min.). @ -Chest x-ray shows no evidence for acute pulmonary process CT interpreted by me (1pt min.). @ -None done U/S interpreted by me (1pt. min.). @ -None done What testing was considered but not performed or refused? (CT, X-rays, U/S, labs)? Why? @ -imaging of the back was considered but patient is not having any red flag symptoms and has not had any trauma What meds were considered but not given or refused? Why? @ -None Did you discuss the management of the patient with other professionals (professionals i.e. , PA, DRUG ABUSE PROGRAM COORDINATOR, lab, RT, psych nurse, long term care social worker, laborer high density press, teacher, loan officer assistant, director case)? Give summary @ -No Was smoking cessation discussed for >3mins.? @ -No Was critical care preformed (if so, how long)? @ -No Were there social determinants of health that impacted care today? How? (Homelessness, low income, unemployed, alcoholism, drug addiction, transportation, low edu. Level, literacy, decrease access to med. care, detention, rehab)? @ -No Was there de-escalation of care discussed even if they declined (Discuss DNR or withdrawal of care, Hospice)? DNR status @ -No What co-morbidities impacted this encounter? (DM, HTN, Smoking, COPD, CAD, Cancer, CVA, ARF, Chemo, Hep., AIDS, mental health diagnosis, sleep apnea, morbid obesity)? @ -None Was patient admitted / discharged? Hospital course, mention meds given and route, prescriptions, significant lab abnormalities, going to OR and other pertinent info. @ -Discharged. Patient presented to the emergency department with chief complaint of pain in her back similar to pain she has experienced in the past and pain with palpation of her chest wall. She reports that she has been coughing but denies fever, congestion. Imaging of back considered but patient is not having any red flag symptoms and no new trauma. Chest xr obtained shows no evidence of acute process. Laboratory studies obtained which showed unactionable CBC, CMP showed sodium 129 which is patient's baseline, potassium 4.1, patient was found to be hyperglycemic at 598. She is not taking her insulin as she states that she is "fighting with [employer]" and is unable to obtain it. Troponin negative. Acetone negative. Patient administered 10 units of subcu regular insulin and given 1 L normal saline. Another 10 units of insulin was given along with another liter of fluids. Blood glucose was checked shortly after this and was found to be 441. BG Recheck at 0040 was 204. Patient will be discharged home. She reports that she is going to follow up with Dr. Cerda on Saturday for medication management. Case discussed with Dr. Mcgowan including BG management and HR who is agreeable with plan. Patient stable at discharge. Undiagnosed new problem with uncertain prognosis? @ -No Drug Therapy requiring intensive monitoring for toxicity (Heparin, Nitro, Insulin, Cardizem)? @ -No Were any procedures done? @ -No Diagnosis/symptom? @ -Back pain, hyperglycemia Acute, or Chronic, or Acute on Chronic? @ -Acute Uncomplicated (without systemic symptoms) or Complicated (systemic symptoms)? @ -Uncomplicated Side effects of treatment? @ -No Exacerbation, Progression, or Severe Exacerbation? @ -No Poses a threat to life or bodily function? How? (Chest pain, USA, CT, pneumonia, PE, COPD, DKA, ARF, appy, cholecystitis, CVA, Diverticulitis, Homicidal, Suicidal, threat to staff... and all critical care pts) @ -No - Lab Data Result diagrams: 12/15/22 20:16 12/15/22 20:16 Lab Results 12/15/22 12/15/22 12/15/22 Range/Units 20:00 20:16 20:16 WBC 10.2 (3.8-10.6) k/uL RBC 5.01 (3.80-5.40) m/uL Hgb 13.4 (11.4-16.0) gm/dL Hct 42.0 (34.0-46.0) % MCV 83.7 (80.0-100.0) fL MCH 26.8 (25.0-35.0) pg MCHC 32.0 (31.0-37.0) g/dL RDW 16.8 H (11.5-15.5) % Plt Count 523 H (150-450) k/uL MPV 8.4 Neutrophils % 67 % Lymphocytes % 25 % Monocytes % 4 % Eosinophils % 2 % Basophils % 0 % Neutrophils # 6.9 (1.3-7.7) k/uL Lymphocytes # 2.6 (1.0-4.8) k/uL Monocytes # 0.4 (0-1.0) k/uL Eosinophils # 0.2 (0-0.7) k/uL Basophils # 0.0 (0-0.2) k/uL Hypochromasia Slight Anisocytosis Slight Microcytosis Slight PT 10.0 (9.0-12.0) sec INR 0.9 (<1.2) APTT 22.3 (22.0-30.0) sec Sodium (137-145) mmol/L Potassium (3.5-5.1) mmol/L Chloride (98-107) mmol/L Carbon Dioxide (22-30) mmol/L Anion Gap mmol/L BUN (7-17) mg/dL Creatinine (0.52-1.04) mg/dL Est GFR (CKD-EPI)AfAm (>60 ml/min/1.73 sqM) Est GFR (CKD-EPI)NonAf (>60 ml/min/1.73 sqM) Glucose (74-99) mg/dL POC Glucose (mg/dL) 566 H (70-110) mg/dL POC Glu Mortuary Technician ID Raul, Yolanda Calcium (8.4-10.2) mg/dL Magnesium (1.6-2.3) mg/dL Total Bilirubin (0.2-1.3) mg/dL AST (14-36) U/L ALT (4-34) U/L Alkaline Phosphatase (38-126) U/L Troponin I (0.000-0.034) ng/mL Total Protein (6.3-8.2) g/dL Albumin (3.5-5.0) g/dL Acetone, Qual (Negative) 12/15/22 12/15/22 12/15/22 Range/Units 20:16 20:16 22:55 WBC (3.8-10.6) k/uL RBC (3.80-5.40) m/uL Hgb (11.4-16.0) gm/dL Hct (34.0-46.0) % MCV (80.0-100.0) fL MCH (25.0-35.0) pg MCHC (31.0-37.0) g/dL RDW (11.5-15.5) % Plt Count (150-450) k/uL MPV Neutrophils % % Lymphocytes % % Monocytes % % Eosinophils % % Basophils % % Neutrophils # (1.3-7.7) k/uL Lymphocytes # (1.0-4.8) k/uL Monocytes # (0-1.0) k/uL Eosinophils # (0-0.7) k/uL Basophils # (0-0.2) k/uL Hypochromasia Anisocytosis Microcytosis PT (9.0-12.0) sec INR (<1.2) APTT (22.0-30.0) sec Sodium 129 L (137-145) mmol/L Potassium 4.1 (3.5-5.1) mmol/L Chloride 96 L (98-107) mmol/L Carbon Dioxide 20 L (22-30) mmol/L Anion Gap 13 mmol/L BUN 13 (7-17) mg/dL Creatinine 0.54 (0.52-1.04) mg/dL Est GFR (CKD-EPI)AfAm >90 (>60 ml/min/1.73 sqM) Est GFR (CKD-EPI)NonAf >90 (>60 ml/min/1.73 sqM) Glucose 598 H* (74-99) mg/dL POC Glucose (mg/dL) 441 H (70-110) mg/dL POC Glu Mortuary Technician ID Yolanda Carter Calcium 9.0 (8.4-10.2) mg/dL Magnesium 1.3 L (1.6-2.3) mg/dL Total Bilirubin 0.4 (0.2-1.3) mg/dL AST 26 (14-36) U/L ALT 23 (4-34) U/L Alkaline Phosphatase 171 H (38-126) U/L Troponin I <0.012 (0.000-0.034) ng/mL Total Protein 6.9 (6.3-8.2) g/dL Albumin 3.6 (3.5-5.0) g/dL Acetone, Qual Negative (Negative) 12/16/22 Range/Units 00:46 WBC (3.8-10.6) k/uL RBC (3.80-5.40) m/uL Hgb (11.4-16.0) gm/dL Hct (34.0-46.0) % MCV (80.0-100.0) fL MCH (25.0-35.0) pg MCHC (31.0-37.0) g/dL RDW (11.5-15.5) % Plt Count (150-450) k/uL MPV Neutrophils % % Lymphocytes % % Monocytes % % Eosinophils % % Basophils % % Neutrophils # (1.3-7.7) k/uL Lymphocytes # (1.0-4.8) k/uL Monocytes # (0-1.0) k/uL Eosinophils # (0-0.7) k/uL Basophils # (0-0.2) k/uL Hypochromasia Anisocytosis Microcytosis PT (9.0-12.0) sec INR (<1.2) APTT (22.0-30.0) sec Sodium (137-145) mmol/L Potassium (3.5-5.1) mmol/L Chloride (98-107) mmol/L Carbon Dioxide (22-30) mmol/L Anion Gap mmol/L BUN (7-17) mg/dL Creatinine (0.52-1.04) mg/dL Est GFR (CKD-EPI)AfAm (>60 ml/min/1.73 sqM) Est GFR (CKD-EPI)NonAf (>60 ml/min/1.73 sqM) Glucose (74-99) mg/dL POC Glucose (mg/dL) 204 H (70-110) mg/dL POC Glu Mortuary Technician ID Yolanda Carter Calcium (8.4-10.2) mg/dL Magnesium (1.6-2.3) mg/dL Total Bilirubin (0.2-1.3) mg/dL AST (14-36) U/L ALT (4-34) U/L Alkaline Phosphatase (38-126) U/L Troponin I (0.000-0.034) ng/mL Total Protein (6.3-8.2) g/dL Albumin (3.5-5.0) g/dL Acetone, Qual (Negative) Disposition Clinical Impression: Back pain, Uncontrolled type 2 diabetes mellitus Disposition: HOME SELF-CARE Condition: Stable Instructions (If sedation given, give patient instructions): Costochondritis (ED), Back Pain (ED) Additional Instructions: Follow up with Dr. Cerda on Saturday. Take Tylenol and Motrin as needed for pain . Return to the emergency department for new or worsening symptoms. Is patient prescribed a controlled substance at d/c from ED?: No Referrals: Guillermo Cerda MD [Primary Care Provider] - 1-2 days
[2022-12-15 22:57] LABS: Glucose,Whole Blood 441 mg/dL (70-110)
[2022-12-16 00:05] VITALS: BP 173/94; PULSE 49
[2022-12-16 00:57] LABS: Glucose,Whole Blood 204 mg/dL (70-110)
== END 2022-12-16 01:14 | disposition home or self-care (01) ==
LOC: EC 19:43
DX: M54.9 Dorsalgia, unspecified (principal); E11.65 Type 2 diabetes mellitus with hyperglycemia; R00.1 Bradycardia, unspecified; E78.5 Hyperlipidemia, unspecified; I10 Essential (primary) hypertension; K21.9 Gastro-esophageal reflux disease without esophagitis; F17.290 Nicotine dependence, other tobacco product, uncomplicated; Z79.899 Other long term (current) drug therapy; Z79.84 Long term (current) use of oral hypoglycemic drugs; Z79.4 Long term (current) use of insulin; Z88.1 Allergy status to other antibiotic agents
CPT/HCPCS: 36415 ×2; 93005; 80053; 82009; 83735; 84484; 85025; 85610; 85730; 71046; 99285; 96374; 96361 ×2; J1885

== ENCOUNTER 2022-12-23 02:14 | Emergency (ER) | payer MEDICARE, OTHER ==
[2022-12-23] MEDS ORDERED: SODIUM CHLORIDE 0.9% 1,000 ML IV ONE ×2 (02:21→04:00)
[2022-12-23] MEDS ORDERED: INSULIN ASPART (NovoLOG) 100 UNIT/ML VIAL SQ ONE ×2 (02:21→04:00)
[2022-12-23 02:24] LABS: Glucose,Whole Blood >600 mg/dL (70-110)
[2022-12-23 02:40] VITALS: TEMP 98.6
--- NOTE | 2022-12-23 02:46 | ED ---
General Adult HPI - General Chief complaint: Recheck/Abnormal Lab/Rx Stated complaint: hyperglycemia Time Seen by Provider: 12/23/22 02:21 Source: EMS Mode of arrival: EMS Limitations: no limitations - History of Present Illness Initial comments: This is a 52-year-old female with a past medical history including diabetes and is well-known to the emergency department percent to the emergency department once again via EMS for hypoglycemia. The patient did report that she is still not had her insulin since June and did state that she went to her primary care physician office on Saturday and the suspicion was sent to the pharmacy however was still waiting to be delivered to her house which was the same to that she has been seen multiple times in the past. The patient denied any other acute pain or complaints and was not any acute distress. The patient denied any lightheadedness, dizziness as well as any nausea and vomiting. - Related Data Home Medications Medication Instructions Recorded Confirmed Atorvastatin [Lipitor] 80 mg PO HS 06/25/19 12/15/22 lisinopriL 40 mg PO DAILY 09/24/20 12/15/22 metFORMIN HCL [Glucophage] 500 mg PO DAILY 09/24/20 12/15/22 traZODone HCL 50 mg PO HS PRN 01/11/21 12/15/22 Ergocalciferol (Vitamin D2) 1,250 mcg PO TU 03/03/21 12/15/22 [Drisdol (50,000 Iu)] Albuterol Inhaler [Ventolin Hfa 2 puff INHALATION RT-QID PRN 07/28/21 12/15/22 Inhaler] Esomeprazole Magnesium [NexIUM] 20 mg PO DAILY 01/30/22 12/15/22 Fenofibrate [Lofibra] 160 mg PO DAILY 11/26/22 12/15/22 INSULIN ASPART (NovoLOG) [NovoLOG 20 unit SQ AC-TID 11/26/22 12/15/22 (formulary)] Insulin Detemir (Levemir) [Levemir] 90 unit SQ HS 11/26/22 12/15/22 Allergies Allergy/AdvReac Type Severity Reaction Status Date / Time levofloxacin [From Levaquin] Allergy Rash/Hives Verified 12/15/22 21:06 Review of Systems ROS Statement: Those systems with pertinent positive or pertinent negative responses have been documented in the HPI. ROS Other: All systems not noted in ROS Statement are negative. Past Medical History Past Medical History: Diabetes Mellitus, GERD/Reflux, Hyperlipidemia, Hypertension, Syncope Additional Past Medical History / Comment(s): Pt recently admitted to [facility] on 07/21/21 with uncontrolled IDDM and hyperkalemia. Other hx: Recurrent pancreatitis, hypertriglyceridemia, elevated lipase, IDDM type II, UTI, chronic low back pain, bulging discs, dental abscesses in past. History of Any Multi-Drug Resistant Organisms: MRSA Date of last positivie culture/infection: 04/29/22 MDRO Source:: Buttock Past Surgical History: Tubal Ligation Additional Past Surgical History / Comment(s): Age 7 had VSD repair Past Anesthesia/Blood Transfusion Reactions: No Reported Reaction Past Psychological History: No Psychological Hx Reported Smoking Status: Former smoker, Second hand smoke exposure, Vaper Past Alcohol Use History: None Reported Past Drug Use History: None Reported - Past Family History Mother Family Medical History: No Reported History Additional Family Medical History / Comment(s): Mother was healthy. She is , pt cannot recall cause of . Father Family Medical History: Pneumonia Additional Family Medical History / Comment(s): Father at the age of 67yrs from pneumonia General Exam Limitations: no limitations General appearance: alert, in no apparent distress, obese Head exam: Present: atraumatic, normocephalic, normal inspection Eye exam: Present: normal appearance, PERRL Pupils: Present: normal accommodation ENT exam: Present: normal exam, normal oropharynx, mucous membranes moist Neck exam: Present: normal inspection, full ROM Respiratory exam: Present: normal lung sounds bilaterally Cardiovascular Exam: Present: regular rate, normal rhythm, normal heart sounds GI/Abdominal exam: Present: soft, normal bowel sounds Extremities exam: Present: normal inspection, full ROM Back exam: Present: normal inspection, full ROM Neurological exam: Present: alert, oriented X3, CN II-XII intact Psychiatric exam: Present: normal affect, normal mood Skin exam: Present: warm, dry Course Vital Signs 12/23/22 02:17 Temperature 98.6 F Pulse Rate 58 L Respiratory 16 Rate Blood Pressure 159/81 O2 Sat by Pulse 97 Oximetry Medical Decision Making - Medical Decision Making Was pt. sent in by a medical professional or institution (, PA, BIN CLEANER, urgent care, hospital, or [facility]...) When possible be specific @ -No Did you speak to anyone other than the patient for history (EMS, parent, family, police, friend...)? What history was obtained from this source @ -No Did you review nursing and triage notes (agree or disagree)? Why? @ -I reviewed and agree with nursing and triage notes Were old charts reviewed (outside hosp., previous admission, EMS record, old EKG, old radiological studies, urgent care reports/EKG's, [facility] records)? Report findings @ -No old charts were reviewed Differential Diagnosis (chest pain, altered mental status, abdominal pain women, abdominal pain men, vaginal bleeding, weakness, fever, dyspnea, syncope, headache, dizziness, GI bleed, back pain, seizure, CVA, palpatations, mental health)? @ -Hyperglycemia, medical noncompliance, HHS EKG interpreted by me (3pts min.). @ -None X-rays interpreted by me (1pt min.). @ -None done CT interpreted by me (1pt min.). @ -None done U/S interpreted by me (1pt. min.). @ -None done What testing was considered but not performed or refused? (CT, X-rays, U/S, labs)? Why? @ -None What meds were considered but not given or refused? Why? @ -None Did you discuss the management of the patient with other professionals (professionals i.e. , PA, BIN CLEANER, lab, RT, psych nurse, social welfare administrator, parking analyst, teacher, technology officer, case supervisor)? Give summary @ -No Was smoking cessation discussed for >3mins.? @ -No Was critical care preformed (if so, how long)? @ -No Were there social determinants of health that impacted care today? How? (Homelessness, low income, unemployed, alcoholism, drug addiction, transportation, low edu. Level, literacy, decrease access to med. care, long-term, rehab)? @ -No Was there de-escalation of care discussed even if they declined (Discuss DNR or withdrawal of care, Hospice)? DNR status @ -No What co-morbidities impacted this encounter? (DM, HTN, Smoking, COPD, CAD, Cancer, CVA, ARF, Chemo, Hep., AIDS, mental health diagnosis, sleep apnea, morbid obesity)? @ -Diabetes, medical noncompliance Was patient admitted / discharged? Hospital course, mention meds given and route, prescriptions, significant lab abnormalities, going to OR and other pertinent info. @ -The patient was seen and evaluated emergency department. Physical exam, the patient was resting in bed without any acute distress. Vital signs admission were stable. Due to the nature the patient's complaints, workup was once again including CBC and CMP and did show hyperglycemia. The patient received a total of 2 L of normal saline fluid and a total of 20 units of subcutaneous insulin spread over 2 doses. Multiple rechecks of her blood sugar did show significant decrease the patient was discharged home once again. The patient was advised to follow-up with her primary care physician and to make sure that she obtains her insulin which she states should be delivered to her home on Saturday. The p el was agreeable to this and was discharged home in stable condition. Undiagnosed new problem with uncertain prognosis? @ -No Drug Therapy requiring intensive monitoring for toxicity (Heparin, Nitro, Insulin, Cardizem)? @ -No Were any procedures done? @ -No Diagnosis/symptom? @ -Hyperglycemia Acute, or Chronic, or Acute on Chronic? @ -Chronic Uncomplicated (without systemic symptoms) or Complicated (systemic symptoms)? @ -Uncomplicated Side effects of treatment? @ -No Exacerbation, Progression, or Severe Exacerbation? @ -No Poses a threat to life or bodily function? How? (Chest pain, [place], [place], pneumonia, PE, COPD, DKA, ARF, appy, cholecystitis, CVA, Diverticulitis, Homicidal, Suicidal, threat to staff... and all critical care pts) @ -No - Lab Data Result diagrams: 12/23/22 02:28 12/23/22 02:28 Lab Results 12/23/22 12/23/22 12/23/22 Range/Units 02:23 02:28 02:28 WBC 10.9 H (3.8-10.6) k/uL RBC 4.73 (3.80-5.40) m/uL Hgb 12.7 (11.4-16.0) gm/dL Hct 40.7 (34.0-46.0) % MCV 86.1 (80.0-100.0) fL MCH 26.8 (25.0-35.0) pg MCHC 31.1 (31.0-37.0) g/dL RDW 16.9 H (11.5-15.5) % Plt Count 464 H (150-450) k/uL MPV 7.8 Neutrophils % 72 % Lymphocytes % 19 % Monocytes % 6 % Eosinophils % 1 % Basophils % 0 % Neutrophils # 7.9 H (1.3-7.7) k/uL Lymphocytes # 2.1 (1.0-4.8) k/uL Monocytes # 0.6 (0-1.0) k/uL Eosinophils # 0.1 (0-0.7) k/uL Basophils # 0.0 (0-0.2) k/uL Hypochromasia Slight Anisocytosis Slight Sodium 127 L (137-145) mmol/L Potassium 4.3 (3.5-5.1) mmol/L Chloride 95 L (98-107) mmol/L Carbon Dioxide 20 L (22-30) mmol/L Anion Gap 12 mmol/L BUN 15 (7-17) mg/dL Creatinine 0.57 (0.52-1.04) mg/dL Est GFR (CKD-EPI)AfAm >90 (>60 ml/min/1.73 sqM) Est GFR (CKD-EPI)NonAf >90 (>60 ml/min/1.73 sqM) Glucose 682 H* (74-99) mg/dL POC Glucose (mg/dL) >600 H (70-110) mg/dL POC Glu Street Car Inspector ID Tawana Frank Calcium 8.8 (8.4-10.2) mg/dL Magnesium 1.3 L (1.6-2.3) mg/dL Total Bilirubin 0.6 (0.2-1.3) mg/dL AST 29 (14-36) U/L ALT 20 (4-34) U/L Alkaline Phosphatase 127 H (38-126) U/L Total Protein 6.4 (6.3-8.2) g/dL Albumin 3.2 L (3.5-5.0) g/dL 12/23/22 Range/Units 03:58 WBC (3.8-10.6) k/uL RBC (3.80-5.40) m/uL Hgb (11.4-16.0) gm/dL Hct (34.0-46.0) % MCV (80.0-100.0) fL MCH (25.0-35.0) pg MCHC (31.0-37.0) g/dL RDW (11.5-15.5) % Plt Count (150-450) k/uL MPV Neutrophils % % Lymphocytes % % Monocytes % % Eosinophils % % Basophils % % Neutrophils # (1.3-7.7) k/uL Lymphocytes # (1.0-4.8) k/uL Monocytes # (0-1.0) k/uL Eosinophils # (0-0.7) k/uL Basophils # (0-0.2) k/uL Hypochromasia Anisocytosis Sodium (137-145) mmol/L Potassium (3.5-5.1) mmol/L Chloride (98-107) mmol/L Carbon Dioxide (22-30) mmol/L Anion Gap mmol/L BUN (7-17) mg/dL Creatinine (0.52-1.04) mg/dL Est GFR (CKD-EPI)AfAm (>60 ml/min/1.73 sqM) Est GFR (CKD-EPI)NonAf (>60 ml/min/1.73 sqM) Glucose (74-99) mg/dL POC Glucose (mg/dL) 486 H (70-110) mg/dL POC Glu Street Car Inspector ID Adriana Monahan Calcium (8.4-10.2) mg/dL Magnesium (1.6-2.3) mg/dL Total Bilirubin (0.2-1.3) mg/dL AST (14-36) U/L ALT (4-34) U/L Alkaline Phosphatase (38-126) U/L Total Protein (6.3-8.2) g/dL Albumin (3.5-5.0) g/dL Disposition Clinical Impression: Hyperglycemia Disposition: HOME SELF-CARE Condition: Stable Instructions (If sedation given, give patient instructions): Diabetic Hyperglycemia (ED) Is patient prescribed a controlled substance at d/c from ED?: No Referrals: Guillermo Cerda MD [Primary Care Provider] - 1-2 days Time of Disposition: 05:00
[2022-12-23 02:59] LABS: Anisocytosis Slight; Basophils % (A) 0 %; Eosinophils # (A) 0.1 k/uL (0-0.7); Eosinophils % (A) 1 %; HCT 40.7 % (34.0-46.0); HGB 12.7 gm/dL (11.4-16.0); Hypochromasia Slight; Lymphocytes # (A) 2.1 k/uL (1.0-4.8); Lymphocytes % (A) 19 %; MCH 26.8 pg (25.0-35.0); MCHC 31.1 g/dL (31.0-37.0); MCV 86.1 fL (80.0-100.0); Mean Platelet Volume 7.8; Monocytes # (A) 0.6 k/uL (0-1.0); Monocytes % (A) 6 %; Neutrophils # (A) 7.9 k/uL (1.3-7.7); Neutrophils % (A) 72 %; Platelet Count 464 k/uL (150-450); RBC 4.73 m/uL (3.80-5.40); RDW 16.9 % (11.5-15.5); WBC 10.9 k/uL (3.8-10.6)
[2022-12-23 03:05] LABS: ALT 20 U/L (4-34); AST 29 U/L (14-36); African American GFR (CKD) >90 (>60 ml/min/1.73 sqM); Albumin 3.2 g/dL (3.5-5.0); Alkaline Phosphatase 127 U/L (38-126); Anion Gap 12 mmol/L; Blood Urea Nitrogen 15 mg/dL (7-17); Calcium 8.8 mg/dL (8.4-10.2); Carbon Dioxide 20 mmol/L (22-30); Chloride 95 mmol/L (98-107); Magnesium 1.3 mg/dL (1.6-2.3); Non-African American GFR(CKD) >90 (>60 ml/min/1.73 sqM); Sodium 127 mmol/L (137-145); Total Bilirubin 0.6 mg/dL (0.2-1.3); Total Protein 6.4 g/dL (6.3-8.2)
[2022-12-23 03:56] LABS: Glucose 682 mg/dL (74-99); Potassium 4.3 mmol/L (3.5-5.1)
[2022-12-23 04:00] LABS: Glucose,Whole Blood 486 mg/dL (70-110)
[2022-12-23] MEDS ORDERED: ACETAMINOPHEN TAB 325 MG TAB PO STA (04:00)
[2022-12-23 05:48] LABS: Glucose,Whole Blood 295 mg/dL (70-110)
[2022-12-23 06:10] VITALS: BP 172/85; PULSE 64; RESP 19
== END 2022-12-23 06:09 | disposition home or self-care (01) ==
LOC: EC 02:14
DX: E11.65 Type 2 diabetes mellitus with hyperglycemia (principal); E78.5 Hyperlipidemia, unspecified; K21.9 Gastro-esophageal reflux disease without esophagitis; I10 Essential (primary) hypertension; F17.290 Nicotine dependence, other tobacco product, uncomplicated; Z79.4 Long term (current) use of insulin; Z79.899 Other long term (current) drug therapy; Z79.84 Long term (current) use of oral hypoglycemic drugs; Z88.1 Allergy status to other antibiotic agents
CPT/HCPCS: 36415; 80053; 83735; 85025; 96360; 96361; 99284

== ENCOUNTER 2023-01-16 11:15 | Emergency (ER) | payer MEDICARE, OTHER ==
[2023-01-16 11:35] VITALS: TEMP 98.9
--- NOTE | 2023-01-16 11:35 | ED ---
General Adult HPI - General Stated complaint: Chest Pain Time Seen by Provider: 01/16/23 11:24 Source: patient Mode of arrival: ambulatory Limitations: no limitations - History of Present Illness Initial comments: The patient is a 52-year-old female with a history of hypertension, hyperlipidemia, diabetes who is well-known to the emergency room who presents with complaints of flulike symptoms. Patient complains of a cough, congestion, sore throat and pleuritic chest pain that started 2-3 days ago. Patient states that she has pain with excessive coughing but denies any pain at rest. She denies hemoptysis. Denies any vomiting, diarrhea or fevers. Patient quit smoking over a year ago but still continues to be. She denies any history of asthma or COPD. She denies any pain at rest. It has all with coughing. - Related Data Home Medications Medication Instructions Recorded Confirmed Atorvastatin [Lipitor] 80 mg PO HS 06/25/19 01/16/23 lisinopriL 40 mg PO DAILY 09/24/20 01/16/23 metFORMIN HCL [Glucophage] 500 mg PO DAILY 09/24/20 01/16/23 traZODone HCL 50 mg PO HS PRN 01/11/21 01/16/23 Ergocalciferol (Vitamin D2) 1,250 mcg PO TU 03/03/21 01/16/23 [Drisdol (50,000 Iu)] Albuterol Inhaler [Ventolin Hfa 2 puff INHALATION RT-QID PRN 07/28/21 01/16/23 Inhaler] Esomeprazole Magnesium [NexIUM] 20 mg PO DAILY 01/30/22 01/16/23 INSULIN ASPART (NovoLOG) [NovoLOG 20 unit SQ AC-TID 11/26/22 01/16/23 (formulary)] Insulin Detemir (Levemir) [Levemir] 90 unit SQ DAILY 11/26/22 01/16/23 Ketoconazole 2% Cream [Nizoral 2%] 1 applic TOPICAL BID 01/16/23 01/16/23 Previous Rx's Medication Instructions Recorded guaiFENesin-Coden 100-10MG/5ML 10 ml PO Q8H PRN 3 Days #90 ml 01/16/23 [Robitussin AC] Allergies Allergy/AdvReac Type Severity Reaction Status Date / Time levofloxacin [From Levaquin] Allergy Rash/Hives Verified 01/16/23 11:26 Review of Systems ROS Statement: Those systems with pertinent positive or pertinent negative responses have been documented in the HPI. ROS Other: All systems not noted in ROS Statement are negative. Past Medical History Past Medical History: Diabetes Mellitus, GERD/Reflux, Hyperlipidemia, Hypertension, Syncope Additional Past Medical History / Comment(s): Pt recently admitted to [facility] on 07/21/21 with uncontrolled IDDM and hyperkalemia. Other hx: Recurrent pancreatitis, hypertriglyceridemia, elevated lipase, IDDM type II, UTI, chronic low back pain, bulging discs, dental abscesses in past. History of Any Multi-Drug Resistant Organisms: MRSA Date of last positivie culture/infection: 04/29/22 MDRO Source:: Buttock Past Surgical History: Tubal Ligation Additional Past Surgical History / Comment(s): Age 7 had VSD repair Past Anesthesia/Blood Transfusion Reactions: No Reported Reaction Past Psychological History: No Psychological Hx Reported Smoking Status: Former smoker, Second hand smoke exposure, Vaper Past Alcohol Use History: None Reported Past Drug Use History: None Reported - Past Family History Mother Family Medical History: No Reported History Additional Family Medical History / Comment(s): Mother was healthy. She is , pt cannot recall cause of . Father Family Medical History: Pneumonia Additional Family Medical History / Comment(s): Father at the age of 67yrs from pneumonia General Exam Limitations: no limitations General appearance: alert, in no apparent distress Head exam: Present: atraumatic Eye exam: Present: normal appearance ENT exam: Present: normal exam Neck exam: Present: normal inspection Respiratory exam: Present: normal lung sounds bilaterally, other (No wheezing rales or rhonchi on exam) Cardiovascular Exam: Present: regular rate, normal rhythm GI/Abdominal exam: Present: soft Extremities exam: Present: full ROM Back exam: Present: full ROM Neurological exam: Present: alert, oriented X3 Psychiatric exam: Present: normal affect, normal mood Skin exam: Present: warm, dry Course Vital Signs 01/16/23 01/16/23 01/16/23 11:21 11:36 11:40 Temperature 98.9 F Pulse Rate 62 60 Respiratory 20 15 19 Rate Blood Pressure 171/85 O2 Sat by Pulse 97 Oximetry 01/16/23 01/16/23 01/16/23 11:50 12:00 12:10 Temperature Pulse Rate 66 60 65 Respiratory 25 H 17 25 H Rate Blood Pressure O2 Sat by Pulse Oximetry 01/16/23 01/16/23 01/16/23 12:20 12:30 12:40 Temperature Pulse Rate 66 51 L 54 L Respiratory 12 18 16 Rate Blood Pressure O2 Sat by Pulse Oximetry 01/16/23 01/16/23 01/16/23 12:50 13:00 13:10 Temperature Pulse Rate 55 L 51 L 52 L Respiratory 21 11 L 17 Rate Blood Pressure O2 Sat by Pulse Oximetry 01/16/23 01/16/23 13:20 13:30 Temperature Pulse Rate 55 L 56 L Respiratory 20 11 L Rate Blood Pressure O2 Sat by Pulse Oximetry - Reevaluation(s) Reevaluation #1: 01/16/23 15:29 Patient's well apearing in the emergency room. She is in no respiratory distress. The pain is only with coughing. Discussed lab and imaging results which were negative for any obvious pneumonia, Covid or other acute changes. EKG shows no acute ST segment elevation or T-wave changes. Discussed management at the upper respiratory infection with the patient. Discussed signs return to the emergency room. She understands agrees to treatment discharge plan. Blood sugar came down with insulin in the ER today. 01/16/23 15:45 Patient is tachycardic and is not hypoxic in the emergency room. EKG Findings - EKG Comments: EKG Findings:: EKG shows sinus bradycardia rate of [address] segment elevation or T-wave changes Medical Decision Making - Medical Decision Making Was pt. sent in by a medical professional or institution (ROSALIE Flaherty, COMMUNICABLE DISEASE SPECIALIST, urgent care, hospital, or retirement...) When possible be specific @ -[No] Did you speak to anyone other than the patient for history (EMS, parent, family, police, friend...)? What history was obtained from this source @ -[No] Did you review nursing and triage notes (agree or disagree)? Why? @ -[I reviewed and agree with nursing and triage notes] Were old charts reviewed (outside hosp., previous admission, EMS record, old EKG, old radiological studies, urgent care reports/EKG's, retirement records)? Report findings @ -Yes old charts were reviewed Differential Diagnosis (chest pain, altered mental status, abdominal pain women, abdominal pain men, vaginal bleeding, weakness, fever, dyspnea, syncope, headache, dizziness, GI bleed, back pain, seizure, CVA, palpatations, mental health, musculoskeletal)? @ -Pneumonia, bronchitis, URI, COVID-19, RSV, influenza EKG interpreted by me (3pts min.). @ -EKG shows sinus tachycardia rate of [address] segment elevation X-rays interpreted by me (1pt min.). @ -Chest x-ray is negative for any pneumonia or pneumothorax or other acute changes. CT interpreted by me (1pt min.). @ -[None done] U/S interpreted by me (1pt. min.). @ -[None done] What testing was considered but not performed or refused? (CT, X-rays, U/S, labs)? Why? @ -[None] What meds were considered but not given or refused? Why? @ -[None] Did you discuss the management of the patient with other professionals (professionals i.e. , PA, COMMUNICABLE DISEASE SPECIALIST, lab, RT, psych nurse, social worker clinical, combination welder apprentice, teacher, contact officer, nurse case management)? Give summary @ -I discussed patient's symptoms are And disposition with attending physician Dr. George today. Was smoking cessation discussed for >3mins.? @ -[No] Was critical care preformed (if so, how long)? @ -[No] Were there social determinants of health that impacted care today? How? (Homelessness, low income, unemployed, alcoholism, drug addiction, transportation, low edu. Level, literacy, decrease access to med. care, custodial, rehab)? @ -[No] Was there de-escalation of care discussed even if they declined (Discuss DNR or withdrawal of care, Hospice)? DNR status @ -[No] What co-morbidities impacted this encounter? (DM, HTN, Smoking, COPD, CAD, Cancer, CVA, ARF, Chemo, Hep., AIDS, mental health diagnosis, sleep apnea, morbid obesity)? @ -[None] Was patient admitted / discharged? Hospital course, mention meds given and route, prescriptions, significant lab abnormalities, going to OR and other perti nent info. @ -Patient's well appearing in the emergency room. Her vital signs are stable. She is not hypoxic. She has no respiratory distress on exam. Patient is stable to follow up as an outpatient with symptomatic management of the URI. Patient will be given Robitussin-AC for cough and pain. She understands she does not work or trouble taking it. She may take ibuprofen as needed as well. Undiagnosed new problem with uncertain prognosis? @ -[No] Drug Therapy requiring intensive monitoring for toxicity (Heparin, Nitro, Insulin, Cardizem)? @ -[No] Were any procedures done? @ -[No] Diagnosis/symptom? @ -URI, pleurisy Acute, or Chronic, or Acute on Chronic? @ -Acute Uncomplicated (without systemic symptoms) or Complicated (systemic symptoms)? @ -Uncomplicated Side effects of treatment? @ -[No] Exacerbation, Progression, or Severe Exacerbation? @ -[No] Poses a threat to life or bodily function? How? (Chest pain, [place], [place], pneumonia, PE, COPD, DKA, ARF, appy, cholecystitis, CVA, Diverticulitis, Homicidal, Suicidal, threat to staff... and all critical care pts) @ -[No] - Lab Data Result diagrams: 01/16/23 11:48 01/16/23 11:48 Lab Results 01/16/23 01/16/23 01/16/23 Range/Units 11:48 11:48 11:48 WBC 8.4 (3.8-10.6) k/uL RBC 4.77 (3.80-5.40) m/uL Hgb 12.9 (11.4-16.0) gm/dL Hct 39.1 (34.0-46.0) % MCV 82.0 (80.0-100.0) fL MCH 27.0 (25.0-35.0) pg MCHC 32.9 (31.0-37.0) g/dL RDW 16.8 H (11.5-15.5) % Plt Count 446 (150-450) k/uL MPV 7.8 Neutrophils % 71 % Lymphocytes % 22 % Monocytes % 3 % Eosinophils % 3 % Basophils % 1 % Neutrophils # 5.9 (1.3-7.7) k/uL Lymphocytes # 1.9 (1.0-4.8) k/uL Monocytes # 0.2 (0-1.0) k/uL Eosinophils # 0.2 (0-0.7) k/uL Basophils # 0.0 (0-0.2) k/uL Anisocytosis Slight Microcytosis Slight Sodium 135 L (137-145) mmol/L Potassium 4.9 (3.5-5.1) mmol/L Chloride 100 (98-107) mmol/L Carbon Dioxide 21 L (22-30) mmol/L Anion Gap 14 mmol/L BUN 12 (7-17) mg/dL Creatinine 0.46 L (0.52-1.04) mg/dL Est GFR (CKD-EPI)AfAm >90 (>60 ml/min/1.73 sqM) Est GFR (CKD-EPI)NonAf >90 (>60 ml/min/1.73 sqM) Glucose 318 H (74-99) mg/dL POC Glucose (mg/dL) (70-110) mg/dL POC Glu Value Advisor ID Calcium 9.1 (8.4-10.2) mg/dL Total Bilirubin 0.7 (0.2-1.3) mg/dL AST 38 H (14-36) U/L ALT 20 (4-34) U/L Alkaline Phosphatase 96 (38-126) U/L Troponin I <0.012 (0.000-0.034) ng/mL Total Protein 7.1 (6.3-8.2) g/dL Albumin 3.8 (3.5-5.0) g/dL Influenza Type A (PCR) (Not Detectd) Influenza Type B (PCR) (Not Detectd) RSV (PCR) (Not Detectd) SARS-CoV-2 (PCR) (Not Detectd) Group A Strep (PCR) (Not Detectd) 01/16/23 01/16/23 01/16/23 Range/Units 11:48 11:48 14:49 WBC (3.8-10.6) k/uL RBC (3.80-5.40) m/uL Hgb (11.4-16.0) gm/dL Hct (34.0-46.0) % MCV (80.0-100.0) fL MCH (25.0-35.0) pg MCHC (31.0-37.0) g/dL RDW (11.5-15.5) % Plt Count (150-450) k/uL MPV Neutrophils % % Lymphocytes % % Monocytes % % Eosinophils % % Basophils % % Neutrophils # (1.3-7.7) k/uL Lymphocytes # (1.0-4.8) k/uL Monocytes # (0-1.0) k/uL Eosinophils # (0-0.7) k/uL Basophils # (0-0.2) k/uL Anisocytosis Microcytosis Sodium (137-145) mmol/L Potassium (3.5-5.1) mmol/L Chloride (98-107) mmol/L Carbon Dioxide (22-30) mmol/L Anion Gap mmol/L BUN (7-17) mg/dL Creatinine (0.52-1.04) mg/dL Est GFR (CKD-EPI)AfAm (>60 ml/min/1.73 sqM) Est GFR (CKD-EPI)NonAf (>60 ml/min/1.73 sqM) Glucose (74-99) mg/dL POC Glucose (mg/dL) 217 H (70-110) mg/dL POC Glu Value Advisor ID Mai Gonzales Calcium (8.4-10.2) mg/dL Total Bilirubin (0.2-1.3) mg/dL AST (14-36) U/L ALT (4-34) U/L Alkaline Phosphatase (38-126) U/L Troponin I (0.000-0.034) ng/mL Total Protein (6.3-8.2) g/dL Albumin (3.5-5.0) g/dL Influenza Type A (PCR) Not Detected (Not Detectd) Influenza Type B (PCR) Not Detected (Not Detectd) RSV (PCR) Not Detected (Not Detectd) SARS-CoV-2 (PCR) Not Detected (Not Detectd) Group A Strep (PCR) NOT DETECTED (Not Detectd) - EKG Data -: EKG Interpreted by Me - Radiology Data Radiology results: report reviewed, image reviewed Disposition Clinical Impression: URI (upper respiratory infection), Pleurisy, Hyperglycemia Disposition: HOME SELF-CARE Condition: Good Instructions (If sedation given, give patient instructions): Pleurisy (ED), Upper Respiratory Infection (ED) Prescriptions: guaiFENesin-Coden 100-10MG/5ML [Robitussin AC] 10 ml PO Q8H PRN 3 Days #90 ml PRN Reason: Cough Is patient prescribed a controlled substance at d/c from ED?: Yes When asked, does pt state using other controlled substances?: No If prescribed controlled substance>3 days was MAPS reviewed?: Prescribed <3 Days If opioid is for acute pain is fill amount 7 days or less?: No Referrals: Guillermo Cerda MD [Primary Care Provider] - 1-2 days
[2023-01-16 12:43] LABS: Anisocytosis Slight; Basophils % (A) 1 %; Eosinophils # (A) 0.2 k/uL (0-0.7); Eosinophils % (A) 3 %; HCT 39.1 % (34.0-46.0); HGB 12.9 gm/dL (11.4-16.0); Lymphocytes # (A) 1.9 k/uL (1.0-4.8); Lymphocytes % (A) 22 %; MCHC 32.9 g/dL (31.0-37.0); Mean Platelet Volume 7.8; Microcytosis Slight; Monocytes # (A) 0.2 k/uL (0-1.0); Monocytes % (A) 3 %; Neutrophils # (A) 5.9 k/uL (1.3-7.7); Neutrophils % (A) 71 %; Platelet Count 446 k/uL (150-450); RBC 4.77 m/uL (3.80-5.40); RDW 16.8 % (11.5-15.5); WBC 8.4 k/uL (3.8-10.6)
--- NOTE | 2023-01-16 12:46 | XR ---
EXAMINATION TYPE: XR chest 2V DATE OF EXAM: 01/16/2023 COMPARISON: 12/15/2022 HISTORY: Shortness of breath TECHNIQUE: Frontal and lateral views of the chest are obtained. FINDINGS: Scattered senescent parenchymal changes noted. No evidence for infiltrate. No evidence for atelectasis. Heart size is stable. Mediastinal structures are stable and grossly unremarkable. No evidence for hilar prominence. Degenerative changes dorsal spine. IMPRESSION: 1. No evidence for acute pulmonary disease.
[2023-01-16 12:52] LABS: ALT 20 U/L (4-34); African American GFR (CKD) >90 (>60 ml/min/1.73 sqM); Anion Gap 14 mmol/L; Blood Urea Nitrogen 12 mg/dL (7-17); Carbon Dioxide 21 mmol/L (22-30); Chloride 100 mmol/L (98-107); Glucose 318 mg/dL (74-99); Non-African American GFR(CKD) >90 (>60 ml/min/1.73 sqM); Sodium 135 mmol/L (137-145); Total Bilirubin 0.7 mg/dL (0.2-1.3); Total Protein 7.1 g/dL (6.3-8.2)
[2023-01-16 12:55] LABS: Potassium 4.9 mmol/L (3.5-5.1)
[2023-01-16 12:56] LABS: AST 38 U/L (14-36); Albumin 3.8 g/dL (3.5-5.0); Alkaline Phosphatase 96 U/L (38-126); Calcium 9.1 mg/dL (8.4-10.2)
[2023-01-16] MEDS ORDERED: SODIUM CHLORIDE 0.9% 500 ML 500 ML IV STA (13:06)
[2023-01-16] MEDS ORDERED: INSULIN REGULAR 100 UNIT/ML VIAL (IV) IV ONE (13:06)
[2023-01-16 14:51] LABS: Glucose,Whole Blood 217 mg/dL (70-110)
[2023-01-16 16:19] VITALS: BP 159/80; PULSE 77; RESP 16
== END 2023-01-16 16:21 | disposition home or self-care (01) ==
LOC: EC 11:15
DX: J06.9 Acute upper respiratory infection, unspecified (principal); R09.1 Pleurisy; E11.65 Type 2 diabetes mellitus with hyperglycemia; R00.1 Bradycardia, unspecified; E78.5 Hyperlipidemia, unspecified; I10 Essential (primary) hypertension; F17.290 Nicotine dependence, other tobacco product, uncomplicated; K21.9 Gastro-esophageal reflux disease without esophagitis; Z79.84 Long term (current) use of oral hypoglycemic drugs; Z79.4 Long term (current) use of insulin; Z79.899 Other long term (current) drug therapy; Z88.8 Allergy status to other drugs, medicaments and biological substances; Z20.822 Contact with and (suspected) exposure to COVID-19; Z88.1 Allergy status to other antibiotic agents
CPT/HCPCS: 36415; 71046; 80053; 84484; 85025; 87636; 87651; 93005; 99285

== ENCOUNTER 2023-01-30 17:15 | Emergency (ER) | payer MEDICARE, OTHER ==
[2023-01-30 17:43] VITALS: TEMP 99
--- NOTE | 2023-01-30 17:48 | XR ---
EXAMINATION TYPE: XR chest 2V DATE OF EXAM: 01/30/2023 COMPARISON: Chest x-ray January 16, 2023 HISTORY: Cough TECHNIQUE: Frontal and lateral views of the chest are obtained. FINDINGS: There is no suspicious peripheral focal air space opacity, pleural effusion, or pneumothor ax seen. The cardiac silhouette size is stable and within normal limits. The osseous structures ar e intact. IMPRESSION: No acute pulmonary infiltrate. No significant change from prior.
[2023-01-30 18:13] LABS: Anisocytosis Slight; Basophils # (A) 0.1 k/uL (0-0.2); Basophils % (A) 0 %; Eosinophils # (A) 0.4 k/uL (0-0.7); Eosinophils % (A) 3 %; HCT 42.4 % (34.0-46.0); HGB 13.9 gm/dL (11.4-16.0); Lymphocytes # (A) 3.1 k/uL (1.0-4.8); Lymphocytes % (A) 22 %; MCH 27.2 pg (25.0-35.0); MCHC 32.9 g/dL (31.0-37.0); MCV 82.8 fL (80.0-100.0); Mean Platelet Volume 7.7; Microcytosis Slight; Monocytes # (A) 0.5 k/uL (0-1.0); Monocytes % (A) 3 %; Neutrophils # (A) 10.3 k/uL (1.3-7.7); Neutrophils % (A) 72 %; Platelet Count 551 k/uL (150-450); RBC 5.12 m/uL (3.80-5.40); RDW 16.8 % (11.5-15.5); WBC 14.3 k/uL (3.8-10.6)
[2023-01-30 18:55] VITALS: RESP 18
[2023-01-30 19:23] LABS: ALT 26 U/L (4-34); African American GFR (CKD) >90 (>60 ml/min/1.73 sqM); Albumin 4.1 g/dL (3.5-5.0); Anion Gap 19 mmol/L; Blood Urea Nitrogen 20 mg/dL (7-17); Calcium 9.7 mg/dL (8.4-10.2); Carbon Dioxide 19 mmol/L (22-30); Chloride 93 mmol/L (98-107); Non-African American GFR(CKD) >90 (>60 ml/min/1.73 sqM); Sodium 131 mmol/L (137-145); Total Bilirubin 0.6 mg/dL (0.2-1.3); Total Protein 7.5 g/dL (6.3-8.2)
[2023-01-30 19:28] LABS: AST 27 U/L (14-36); Alkaline Phosphatase 155 U/L (38-126); Glucose 584 mg/dL (74-99); Potassium 4.9 mmol/L (3.5-5.1)
[2023-01-30] MEDS ORDERED: INSULIN REGULAR 100 UNIT/ML VIAL (IM/SQ) SQ ONE (19:33)
[2023-01-30] MEDS ORDERED: SODIUM CHLORIDE 0.9% 1,000 ML IV ONE (19:45)
[2023-01-30] MEDS ORDERED: ALBUTEROL NEBULIZED 2.5 MG/3 ML INHALATION PRN (20:57)
[2023-01-30] MEDS ORDERED: BENZONATATE 100 MG CAP PO PRN (20:57)
--- NOTE | 2023-01-30 20:58 | ED ---
General Adult HPI - General Chief complaint: Upper Respiratory Infection Stated complaint: Cough Time Seen by Provider: 01/30/23 17:20 Source: EMS Mode of arrival: EMS Limitations: no limitations - History of Present Illness Initial comments: 52-year-old female with past history of diabetes, hypertension, hyperlipidemia who presents to the emergency department reporting a cough. States that it went on for the past week. She states that it is nonproductive. She had been seen in the emergency department previously the for a cough. He was discharged home with a prescription for codeine cough syrup. States that she took the medications and continues to cough at night. She denies associated shortness of breath or chest pain. Admits to chronic abdominal pain without any changes. No nausea or vomiting. Patient does have a history of diabetes and has been noncompliant with her insulin. She denies any fevers. No sick contacts. No other alleviating, precipitating or modifying factors - Related Data Home Medications Medication Instructions Recorded Confirmed Atorvastatin [Lipitor] 80 mg PO HS 06/25/19 01/30/23 lisinopriL 40 mg PO DAILY 09/24/20 01/30/23 metFORMIN HCL [Glucophage] 500 mg PO DAILY 09/24/20 01/30/23 traZODone HCL 50 mg PO HS PRN 01/11/21 01/30/23 Ergocalciferol (Vitamin D2) 1,250 mcg PO TU 03/03/21 01/30/23 [Drisdol (50,000 Iu)] Albuterol Inhaler [Ventolin Hfa 2 puff INHALATION RT-QID PRN 07/28/21 01/30/23 Inhaler] Esomeprazole Magnesium [NexIUM] 20 mg PO DAILY 01/30/22 01/30/23 INSULIN ASPART (NovoLOG) [NovoLOG 20 unit SQ AC-TID 11/26/22 01/30/23 (formulary)] Insulin Detemir (Levemir) [Levemir] 90 unit SQ DAILY 11/26/22 01/30/23 Ketoconazole 2% Cream [Nizoral 2%] 1 applic TOPICAL BID 01/16/23 01/30/23 Previous Rx's Medication Instructions Recorded guaiFENesin-Coden 100-10MG/5ML 10 ml PO Q8H PRN 3 Days #90 ml 01/16/23 [Robitussin AC] Albuterol Inhaler [Ventolin Hfa 2 puff INHALATION QID #8 gm 01/30/23 Inhaler] Benzonatate [Tessalon Perles] 100 mg PO TID PRN #20 capsule 01/30/23 Allergies Allergy/AdvReac Type Severity Reaction Status Date / Time levofloxacin [From Levaquin] Allergy Rash/Hives Verified 01/30/23 18:49 Review of Systems ROS Statement: Those systems with pertinent positive or pertinent negative responses have been documented in the HPI. ROS Other: All systems not noted in ROS Statement are negative. Past Medical History Past Medical History: Diabetes Mellitus, GERD/Reflux, Hyperlipidemia, Hypertension, Syncope Additional Past Medical History / Comment(s): Pt recently admitted to [facility] on 07/21/21 with uncontrolled IDDM and hyperkalemia. Other hx: Recurrent pancreatitis, hypertriglyceridemia, elevated lipase, IDDM type II, UTI, chronic low back pain, bulging discs, dental abscesses in past. History of Any Multi-Drug Resistant Organisms: MRSA Date of last positivie culture/infection: 04/29/22 MDRO Source:: Buttock Past Surgical History: Tubal Ligation Additional Past Surgical History / Comment(s): Age 7 had VSD repair Past Anesthesia/Blood Transfusion Reactions: No Reported Reaction Past Psychological History: No Psychological Hx Reported Smoking Status: Former smoker, Second hand smoke exposure, Vaper Past Alcohol Use History: None Reported Past Drug Use History: None Reported - Past Family History Mother Family Medical History: No Reported History Additional Family Medical History / Comment(s): Mother was healthy. She is , pt cannot recall cause of . Father Family Medical History: Pneumonia Additional Family Medical History / Comment(s): Father at the age of 67yrs from pneumonia General Exam Limitations: no limitations General appearance: alert, in no apparent distress Head exam: Present: atraumatic, normocephalic, normal inspection Eye exam: Present: normal appearance, PERRL, EOMI. Absent: scleral icterus, conjunctival injection, periorbital swelling ENT exam: Present: normal exam, mucous membranes moist Neck exam: Present: normal inspection. Absent: tenderness, meningismus, lymphadenopathy Respiratory exam: Present: normal lung sounds bilaterally. Absent: respiratory distress, wheezes, rales, rhonchi, stridor Cardiovascular Exam: Present: regular rate, normal rhythm, normal heart sounds. Absent: systolic murmur, diastolic murmur, rubs, gallop, clicks GI/Abdominal exam: Present: soft, normal bowel sounds. Absent: distended, tenderness, guarding, rebound, rigid Extremities exam: Present: normal inspection, full ROM, normal capillary refill. Absent: tenderness, pedal edema, joint swelling, calf tenderness Back exam: Present: normal inspection Neurological exam: Present: alert, oriented X3, CN II-XII intact Psychiatric exam: Present: normal affect, normal mood Skin exam: Present: warm, dry, intact, normal color. Absent: rash Course Vital Signs 01/30/23 01/30/23 01/30/23 17:17 17:30 18:43 Temperature 99 F Pulse Rate 87 83 Respiratory 18 16 18 Rate Blood Pressure 148/74 131/58 O2 Sat by Pulse 96 97 Oximetry 01/30/23 01/30/23 20:41 22:46 Temperature Pulse Rate 82 59 L Respiratory 18 18 Rate Blood Pressure 144/68 153/78 O2 Sat by Pulse 97 96 Oximetry Medical Decision Making - Medical Decision Making Was pt. sent in by a medical professional or institution (Dr. PA, CERTIFIED MEDICATION AIDE, urgent care, hospital, or skilled nursing...) When possible be specific @ -No Did you speak to anyone other than the patient for history (EMS, parent, family, police, friend...)? What history was obtained from this source @ -EMS Did you review nursing and triage notes (agree or disagree)? Why? @ -I reviewed and agree with nursing and triage notes Were old charts reviewed (outside hosp., previous admission, EMS record, old EKG, old radiological studies, urgent care reports/EKG's, skilled nursing records)? Report findings @ - Patient's ER visit January 16 reviewed Differential Diagnosis (chest pain, altered mental status, abdominal pain women, abdominal pain men, vaginal bleeding, weakness, fever, dyspnea, syncope, headache, dizziness, GI bleed, back pain, seizure, CVA, palpatations, mental health, musculoskeletal)? @ -Differential Dyspnea: Coronary syndrome, arrhythmia, tamponade, asthma, COPD, pulmonary embolism, pneumonia, pneumothorax, pulmonary effusion, anaphylaxis, diabetic ketoacidosis, flailed chest, pulmonary contusion, diaphragmatic rupture, anemia, neuromuscular, this is not meant to be an all-inclusive list. EKG interpreted by me (3pts min.). @ -Not done X-rays interpreted by me (1pt min.). @ -No acute intrathoracic process CT interpreted by me (1pt min.). @ -None done U/S interpreted by me (1pt. min.). @ -None done What testing was considered but not performed or refused? (CT, X-rays, U/S, labs)? Why? @ -None What meds were considered but not given or refused? Why? @ -None Did you discuss the management of the patient with other professionals (professionals i.e. , PA, CERTIFIED MEDICATION AIDE, lab, RT, psych nurse, perinatal social worker, solar sales, teacher, vice squad police officer, manager transmission)? Give summary @ -No Was smoking cessation discussed for >3mins.? @ -No Was critical care preformed (if so, how long)? @ -No Were there social determinants of health that impacted care today? How? (H omelessness, low income, unemployed, alcoholism, drug addiction, transportation, low edu. Level, literacy, decrease access to med. care, senior living, rehab)? @ -Patient is noncompliant with medications Was there de-escalation of care discussed even if they declined (Discuss DNR or withdrawal of care, Hospice)? DNR status @ -No What co-morbidities impacted this encounter? (DM, HTN, Smoking, COPD, CAD, Cancer, CVA, ARF, Chemo, Hep., AIDS, mental health diagnosis, sleep apnea, morbid obesity)? @ -Diabetes mellitus Was patient admitted / discharged? Hospital course, mention meds given and r oute, prescriptions, significant lab abnormalities, going to OR and other pertinent info. @ -Upon arrival patient was placed into room 7. A thorough history and physical exam is performed. IV is established and laboratory studies are conducted. Covid is performed and is negative. Chest x-ray is performed and is negative. Patient does have high glucose at this time. She was given 20 units of subcu insulin and a liter of normal saline. Glucose is rechecked. Patient does provide a urine which has no ketones. Patient is stable for discharge at this time. Given a prescription for Tessalon Perles and an albuterol inhaler. Instructed to follow-up with her doctor and return for any new or worsening symptoms Undiagnosed new problem with uncertain prognosis? @ -No Drug Therapy requiring intensive monitoring for toxicity (Heparin, Nitro, Insulin, Cardizem)? @ -No Were any procedures done? @ -No Diagnosis/symptom? @ -Acute cough, acute hyperglycemia Acute, or Chronic, or Acute on Chronic? @ -Acute Uncomplicated (without systemic symptoms) or Complicated (systemic symptoms)? @ -Complicated Effects of treatment? @ -No Exacerbation, Progression, or Severe Exacerbation? @ -No Poses a threat to life or bodily function? How? (Chest pain, [place], [place], pneumonia, PE, COPD, DKA, ARF, appy, cholecystitis, CVA, Diverticulitis, Homicidal, Suicidal, threat to staff... and all critical care pts) @ -No - Lab Data Result diagrams: 01/30/23 18:07 01/30/23 18:07 Lab Results 01/30/23 01/30/23 01/30/23 Range/Units 18:07 18:07 18:07 WBC 14.3 H (3.8-10.6) k/uL RBC 5.12 (3.80-5.40) m/uL Hgb 13.9 (11.4-16.0) gm/dL Hct 42.4 (34.0-46.0) % MCV 82.8 (80.0-100.0) fL MCH 27.2 (25.0-35.0) pg MCHC 32.9 (31.0-37.0) g/dL RDW 16.8 H (11.5-15.5) % Plt Count 551 H (150-450) k/uL MPV 7.7 Neutrophils % 72 % Lymphocytes % 22 % Monocytes % 3 % Eosinophils % 3 % Basophils % 0 % Neutrophils # 10.3 H (1.3-7.7) k/uL Lymphocytes # 3.1 (1.0-4.8) k/uL Monocytes # 0.5 (0-1.0) k/uL Eosinophils # 0.4 (0-0.7) k/uL Basophils # 0.1 (0-0.2) k/uL Anisocytosis Slight Microcytosis Slight Sodium 131 L (137-145) mmol/L Potassium 4.9 (3.5-5.1) mmol/L Chloride 93 L (98-107) mmol/L Carbon Dioxide 19 L (22-30) mmol/L Anion Gap 19 mmol/L BUN 20 H (7-17) mg/dL Creatinine 0.67 (0.52-1.04) mg/dL Est GFR (CKD-EPI)AfAm >90 (>60 ml/min/1.73 sqM) Est GFR (CKD-EPI)NonAf >90 (>60 ml/min/1.73 sqM) Glucose 584 H* (74-99) mg/dL POC Glucose (mg/dL) (70-110) mg/dL POC Glu Meat Blender ID Calcium 9.7 (8.4-10.2) mg/dL Total Bilirubin 0.6 (0.2-1.3) mg/dL AST 27 (14-36) U/L ALT 26 (4-34) U/L Alkaline Phosphatase 155 H (38-126) U/L Total Protein 7.5 (6.3-8.2) g/dL Albumin 4.1 (3.5-5.0) g/dL Urine Color Urine Appearance (Clear) Urine pH (5.0-8.0) Ur Specific [place] (1.001-1.035) Urine Protein (Negative) Urine Glucose (UA) (Negative) Urine Ketones (Negative) Urine Blood (Negative) Urine Nitrite (Negative) Urine Bilirubin (Negative) Urine Urobilinogen (<2.0) mg/dL Ur Leukocyte Esterase (Negative) Urine RBC (0-5) /hpf Urine WBC (0-5) /hpf Ur Squamous Epith Cells (0-4) /hpf Urine Bacteria (None) /hpf Coronavirus (PCR) Not Detected (Not Detectd) 01/30/23 01/30/23 01/30/23 Range/Units 21:02 21:05 22:42 WBC (3.8-10.6) k/uL RBC (3.80-5.40) m/uL Hgb (11.4-16.0) gm/dL Hct (34.0-46.0) % MCV (80.0-100.0) fL MCH (25.0-35.0) pg MCHC (31.0-37.0) g/dL RDW (11.5-15.5) % Plt Count (150-450) k/uL MPV Neutrophils % % Lymphocytes % % Monocytes % % Eosinophils % % Basophils % % Neutrophils # (1.3-7.7) k/uL Lymphocytes # (1.0-4.8) k/uL Monocytes # (0-1.0) k/uL Eosinophils # (0-0.7) k/uL Basophils # (0-0.2) k/uL Anisocytosis Microcytosis Sodium (137-145) mmol/L Potassium (3.5-5.1) mmol/L Chloride (98-107) mmol/L Carbon Dioxide (22-30) mmol/L Anion Gap mmol/L BUN (7-17) mg/dL Creatinine (0.52-1.04) mg/dL Est GFR (CKD-EPI)AfAm (>60 ml/min/1.73 sqM) Est GFR (CKD-EPI)NonAf (>60 ml/min/1.73 sqM) Glucose (74-99) mg/dL POC Glucose (mg/dL) 380 H 250 H (70-110) mg/dL POC Glu Meat Blender Jaswinder Becker Joshua Calcium (8.4-10.2) mg/dL Total Bilirubin (0.2-1.3) mg/dL AST (14-36) U/L ALT (4-34) U/L Alkaline Phosphatase (38-126) U/L Total Protein (6.3-8.2) g/dL Albumin (3.5-5.0) g/dL Urine Color Yellow Urine Appearance Slightly Cloudy H (Clear) Urine pH 6.0 (5.0-8.0) Ur Specific [place] 1.020 (1.001-1.035) Urine Protein 2+ H (Negative) Urine Glucose (UA) 4+ H (Negative) Urine Ketones Negative (Negative) Urine Blood Trace (Negative) Urine Nitrite Negative (Negative) Urine Bilirubin Negative (Negative) Urine Urobilinogen <2.0 (<2.0) mg/dL Ur Leukocyte Esterase Moderate (Negative) Urine RBC 1 (0-5) /hpf Urine WBC 3 (0-5) /hpf Ur Squamous Epith Cells 2 (0-4) /hpf Urine Bacteria Rare H (None) /hpf Coronavirus (PCR) (Not Detectd) Disposition Clinical Impression: Cough, Hyperglycemia Disposition: HOME SELF-CARE Condition: Stable Instructions (If sedation given, give patient instructions): Upper Respiratory Infection (ED) Additional Instructions: Take your insulin as directed. Follow up with your doctor. Use the tessalon pearles for cough. Prescriptions: Benzonatate [Tessalon Perles] 100 mg PO TID PRN #20 capsule PRN Reason: Cough Albuterol Inhaler [Ventolin Hfa Inhaler] 2 puff INHALATION QID #8 gm Is patient prescribed a controlled substance at d/c from ED?: No Referrals: Guillermo Cerda MD [Primary Care Provider] - 1-2 days Time of Disposition: 21:22
[2023-01-30 21:04] LABS: Glucose,Whole Blood 380 mg/dL (70-110)
[2023-01-30] MEDS ORDERED: ALBUTEROL HFA INHALER INHALATION STA (21:19)
[2023-01-30] MEDS ORDERED: BENZONATATE 100 MG CAP PO STA (21:19)
[2023-01-30] MEDS ORDERED: KETOROLAC 15 MG/ML 1 ML VIAL IVP STA (21:30)
[2023-01-30 21:52] LABS: Appearance,Urine Slightly Cloudy (Clear); Color,Urine Yellow; Glucose,Urine (UA) 4+ (Negative); Protein,Urine 2+ (Negative)
[2023-01-30 21:53] LABS: Bilirubin,Urine Negative (Negative); Blood,Urine Trace (Negative); Ketones,Urine Negative (Negative); Nitrite,Urine Negative (Negative); Urobilinogen,Urine <2.0 mg/dL (<2.0)
[2023-01-30 21:54] LABS: Leukocyte Esterase,Urine Moderate (Negative)
[2023-01-30 22:00] LABS: Bacteria,Urine Rare /hpf; RBC,Urine 1 /hpf (0-5); Squamous Epithelial Cell,Urine 2 /hpf (0-4); WBC,Urine 3 /hpf (0-5)
[2023-01-30 22:44] LABS: Glucose,Whole Blood 250 mg/dL (70-110)
[2023-01-30 23:06] VITALS: BP 153/78; PULSE 59
== END 2023-01-30 22:53 | disposition home or self-care (01) ==
LOC: EC 17:15
DX: E11.65 Type 2 diabetes mellitus with hyperglycemia (principal); R05.9 Cough, unspecified; I10 Essential (primary) hypertension; K21.9 Gastro-esophageal reflux disease without esophagitis; E78.5 Hyperlipidemia, unspecified; F17.290 Nicotine dependence, other tobacco product, uncomplicated; Z88.1 Allergy status to other antibiotic agents; Z79.84 Long term (current) use of oral hypoglycemic drugs; Z79.4 Long term (current) use of insulin; Z79.899 Other long term (current) drug therapy; Z20.822 Contact with and (suspected) exposure to COVID-19
CPT/HCPCS: 99285 ×2; 96374 ×2; 96361 ×2; 36415; 94640; 80053; 85025; 81001; 87635; 71046; J1885

== ENCOUNTER 2023-03-01 16:32 | Inpatient (IN) | payer MEDICARE, OTHER ==
--- NOTE | 2023-03-01 18:01 | ED ---
General Adult HPI - General Chief complaint: Recheck/Abnormal Lab/Rx Stated complaint: Hypertension,Hyperglycemia Time Seen by Provider: 03/01/23 17:53 Source: patient Mode of arrival: ambulatory Limitations: no limitations - History of Present Illness Initial comments: 52-year-old female with known history of diabetes who presents emergency department reporting wounds on her left abdomen and posterior right thigh. States she has a history of MRSA and developed the infections 2 days ago. The infection on the left abdominal wall started draining last night. She is is getting pustular drainage from the site. Posterior thigh abscess not draining at this time. Patient not currently on any antibiotics. Denies fevers. Reports to elevated sugars. No other alleviating, precipitating or modifying factors - Related Data Home Medications Medication Instructions Recorded Confirmed Atorvastatin [Lipitor] 80 mg PO HS 06/25/19 03/01/23 lisinopriL 40 mg PO DAILY 09/24/20 03/01/23 metFORMIN HCL [Glucophage] 500 mg PO DAILY 09/24/20 03/01/23 traZODone HCL 50 mg PO HS PRN 01/11/21 03/01/23 Ergocalciferol (Vitamin D2) 1,250 mcg PO TU 03/03/21 03/01/23 [Drisdol (50,000 Iu)] Esomeprazole Magnesium [NexIUM] 20 mg PO DAILY 01/30/22 03/01/23 INSULIN ASPART (NovoLOG) [NovoLOG 20 unit SQ AC-TID 11/26/22 03/01/23 (formulary)] Insulin Detemir (Levemir) [Levemir] 90 unit SQ DAILY 11/26/22 03/01/23 Ketoconazole 2% Cream [Nizoral 2%] 1 applic TOPICAL BID 01/16/23 03/01/23 Albuterol Inhaler [Ventolin Hfa 2 puff INHALATION RT-QID 03/01/23 03/01/23 Inhaler] Previous Rx's Medication Instructions Recorded guaiFENesin-Coden 100-10MG/5ML 10 ml PO Q8H PRN 3 Days #90 ml 01/16/23 [Robitussin AC] Benzonatate [Tessalon Perles] 100 mg PO TID PRN #20 capsule 01/30/23 Allergies Allergy/AdvReac Type Severity Reaction Status Date / Time levofloxacin [From Levaquin] Allergy Rash/Hives Verified 01/30/23 18:49 Review of Systems ROS Statement: Those systems with pertinent positive or pertinent negative responses have been documented in the HPI. ROS Other: All systems not noted in ROS Statement are negative. Past Medical History Past Medical History: Diabetes Mellitus, GERD/Reflux, Hyperlipidemia, Hypertension, Syncope Additional Past Medical History / Comment(s): Pt recently admitted to [facility] on 07/21/21 with uncontrolled IDDM and hyperkalemia. Other hx: Recurrent pancreatitis, hypertriglyceridemia, elevated lipase, IDDM type II, UTI, chronic low back pain, bulging discs, dental abscesses in past. History of Any Multi-Drug Resistant Organisms: MRSA Date of last positivie culture/infection: 04/29/22 MDRO Source:: Buttock Past Surgical History: Tubal Ligation Additional Past Surgical History / Comment(s): Age 7 had VSD repair Past Anesthesia/Blood Transfusion Reactions: No Reported Reaction Past Psychological History: No Psychological Hx Reported Smoking Status: Former smoker, Second hand smoke exposure, Vaper Past Alcohol Use History: None Reported Past Drug Use History: None Reported - Past Family History Mother Family Medical History: No Reported History Additional Family Medical History / Comment(s): Mother was healthy. She is dec eased, pt cannot recall cause of . Father Family Medical History: Pneumonia Additional Family Medical History / Comment(s): Father at the age of 67yrs from pneumonia General Exam Limitations: no limitations General appearance: alert, in no apparent distress Head exam: Present: atraumatic, normocephalic, normal inspection Eye exam: Present: normal appearance, PERRL, EOMI. Absent: scleral icterus, conjunctival injection, periorbital swelling ENT exam: Present: normal exam, mucous membranes moist Neck exam: Present: normal inspection. Absent: tenderness, meningismus, lymphadenopathy Respiratory exam: Present: normal lung sounds bilaterally. Absent: respiratory distress, wheezes, rales, rhonchi, stridor Cardiovascular Exam: Present: regular rate, normal rhythm, normal heart sounds. Absent: systolic murmur, diastolic murmur, rubs, gallop, clicks GI/Abdominal exam: Present: soft, normal bowel sounds. Absent: distended, tenderness, guarding, rebound, rigid Extremities exam: Present: normal inspection, full ROM, normal capillary refill. Absent: tenderness, pedal edema, joint swelling, calf tenderness Back exam: Present: normal inspection Neurological exam: Present: alert, oriented X3, CN II-XII intact Psychiatric exam: Present: normal affect, normal mood Skin exam: Present: warm, dry, intact, normal color, other (Draining abscess left abdominal wall measuring 6 x 5 cm. Central black scabbing. Actively draining. Abscess to the right posterior thigh measuring 1.5 x 1 cm which is draining). Absent: rash Course Vital Signs 03/01/23 03/01/23 16:44 21:35 Temperature 98.1 F Pulse Rate 75 72 Respiratory 20 16 Rate Blood Pressure 146/86 140/81 O2 Sat by Pulse 97 95 Oximetry Medical Decision Making - Medical Decision Making Was pt. sent in by a medical professional or institution (ROSALIE Flaherty, ONCOLOGY TRANSPLANT NETWORK MANAGER, urgent care, hospital, or shelter...) When possible be specific @ -No Did you speak to anyone other than the patient for history (EMS, parent, family, police, friend...)? What history was obtained from this source @ -No Did you review nursing and triage notes (agree or disagree)? Why? @ -I reviewed and agree with nursing and triage notes Were old charts reviewed (outside hosp., previous admission, EMS record, old EKG, old radiological studies, urgent care reports/EKG's, shelter records)? Report findings @ -No old charts were reviewed Differential Diagnosis (chest pain, altered mental status, abdominal pain women, abdominal pain men, vaginal bleeding, weakness, fever, dyspnea, syncope, headache, dizziness, GI bleed, back pain, seizure, CVA, palpatations, mental health, musculoskeletal)? @ -MRSA, abscess, cellulitis, necrotizing fasciitis EKG interpreted by me (3pts min.). @ -Not done X-rays interpreted by me (1pt min.). @ -None done CT interpreted by me (1pt min.). @ -None done U/S interpreted by me (1pt. min.). @ -None done What testing was considered but not performed or refused? (CT, X-rays, U/S, labs)? Why? @ -None What meds were considered but not given or refused? Why? @ -None Did you discuss the management of the patient with other professionals (professionals i.e. Dr., PA, ONCOLOGY TRANSPLANT NETWORK MANAGER, lab, RT, psych nurse, transition social worker, node js developer, teacher, transportation officer, case investigator)? Give summary @ -Dr. Cerda who will admit patient Was smoking cessation discussed for >3mins.? @ -No Was critical care preformed (if so, how long)? @ -No Were there social determinants of health that impacted care today? How? (Homelessness, low income, unemployed, alcoholism, drug addiction, transportation, low edu. Level, literacy, decrease access to med. care, care home, rehab)? @ -No Was there de-escalation of care discussed even if they declined (Discuss DNR or withdrawal of care, Hospice)? DNR status @ -No What co-morbidities impacted this encounter? (DM, HTN, Smoking, COPD, CAD, Cancer, CVA, ARF, Chemo, Hep., AIDS, mental health diagnosis, sleep apnea, morbid obesity)? @ -dm Was patient admitted / discharged? Hospital course, mention meds given and route, prescriptions, significant lab abnormalities, going to OR and other pertinent info. @ -Upon arrival patient is placed into room 10. Thorough history and physical exam is performed. Patient's abscesses are draining. I did culture her abdominal wound. Patient initiated on vancomycin. Laboratory studies are conducted in lactic is 3 therefore she is started on IV fluids. Patient will be admitted for IV antibiotics Undiagnosed new problem with uncertain prognosis? @ -yes Drug Therapy requiring intensive monitoring for toxicity (Heparin, Nitro, Insulin, Cardizem)? @ -No Were any procedures done? @ -No Diagnosis/symptom? @ -Left abdominal wall abscess, right posterior I abscess, uncontrolled diabetes mellitus with hyperglycemia Acute, or Chronic, or Acute on Chronic? @ -Acute and chronic Uncomplicated (without systemic symptoms) or Complicated (systemic symptoms)? @ -complicated Side effects of treatment? @ -No Exacerbation, Progression, or Severe Exacerbation? @ -No Poses a threat to life or bodily function? How? (Chest pain, USA, PR, pneumonia, PE, COPD, DKA, ARF, appy, cholecystitis, CVA, Diverticulitis, Homicidal, Suicidal, threat to staff... and all critical care pts) @ -No - Lab Data Result diagrams: 03/01/23 20:47 03/01/23 20:47 Lab Results 03/01/23 03/01/23 03/01/23 Range/Units 20:47 20:47 20:47 WBC 10.7 H (3.8-10.6) k/uL RBC 4.72 (3.80-5.40) m/uL Hgb 12.5 (11.4-16.0) gm/dL Hct 39.4 (34.0-46.0) % MCV 83.5 (80.0-100.0) fL MCH 26.5 (25.0-35.0) pg MCHC 31.7 (31.0-37.0) g/dL RDW 16.5 H (11.5-15.5) % Plt Count 473 H (150-450) k/uL MPV 7.5 Neutrophils % 63 % Lymphocytes % 28 % Monocytes % 5 % Eosinophils % 2 % Basophils % 0 % Neutrophils # 6.8 (1.3-7.7) k/uL Lymphocytes # 3.0 (1.0-4.8) k/uL Monocytes # 0.5 (0-1.0) k/uL Eosinophils # 0.2 (0-0.7) k/uL Basophils # 0.0 (0-0.2) k/uL Anisocytosis Slight Sodium 132 L (137-145) mmol/L Potassium 4.7 (3.5-5.1) mmol/L Chloride 98 (98-107) mmol/L Carbon Dioxide 22 (22-30) mmol/L Anion Gap 12 mmol/L BUN 19 H (7-17) mg/dL Creatinine 0.68 (0.52-1.04) mg/dL Est GFR (CKD-EPI)AfAm >90 (>60 ml/min/1.73 sqM) Est GFR (CKD-EPI)NonAf >90 (>60 ml/min/1.73 sqM) Glucose 414 H (74-99) mg/dL Plasma Lactic Acid Travon 3.0 H* (0.7-2.0) mmol/L Calcium 8.6 (8.4-10.2) mg/dL Total Bilirubin 0.5 (0.2-1.3) mg/dL AST 22 (14-36) U/L ALT 21 (4-34) U/L Alkaline Phosphatase 151 H (38-126) U/L Troponin I (0.000-0.034) ng/mL Total Protein 6.7 (6.3-8.2) g/dL Albumin 3.6 (3.5-5.0) g/dL Lipase 184 (23-300) U/L 03/01/23 Range/Units 20:47 WBC (3.8-10.6) k/uL RBC (3.80-5.40) m/uL Hgb (11.4-16.0) gm/dL Hct (34.0-46.0) % MCV (80.0-100.0) fL MCH (25.0-35.0) pg MCHC (31.0-37.0) g/dL RDW (11.5-15.5) % Plt Count (150-450) k/uL MPV Neutrophils % % Lymphocytes % % Monocytes % % Eosinophils % % Basophils % % Neutrophils # (1.3-7.7) k/uL Lymphocytes # (1.0-4.8) k/uL Monocytes # (0-1.0) k/uL Eosinophils # (0-0.7) k/uL Basophils # (0-0.2) k/uL Anisocytosis Sodium (137-145) mmol/L Potassium (3.5-5.1) mmol/L Chloride (98-107) mmol/L Carbon Dioxide (22-30) mmol/L Anion Gap mmol/L BUN (7-17) mg/dL Creatinine (0.52-1.04) mg/dL Est GFR (CKD-EPI)AfAm (>60 ml/min/1.73 sqM) Est GFR (CKD-EPI)NonAf (>60 ml/min/1.73 sqM) Glucose (74-99) mg/dL Plasma Lactic Acid Travon (0.7-2.0) mmol/L Calcium (8.4-10.2) mg/dL Total Bilirubin (0.2-1.3) mg/dL AST (14-36) U/L ALT (4-34) U/L Alkaline Phosphatase (38-126) U/L Troponin I <0.012 (0.000-0.034) ng/mL Total Protein (6.3-8.2) g/dL Albumin (3.5-5.0) g/dL Lipase (23-300) U/L Disposition Clinical Impression: Abdominal wall cellulitis, Hyperglycemia Disposition: ADMITTED IP TO THIS HOSP Condition: Stable Is patient prescribed a controlled substance at d/c from ED?: No Time of Disposition: 21:38 Decision to Admit Reason: Admit from EC Decision Date: 03/01/23 Decision Time: 21:38
[2023-03-01] MEDS ORDERED: VANCOMYCIN 1,000 MG in SODIUM CHLORIDE 0.9% 250 ML IVPB STA (19:10)
[2023-03-01] MEDS ORDERED: MORPHINE SULFATE 4 MG/ML SYRINGE IVP STA (19:11)
[2023-03-01] MEDS ORDERED: VANCOMYCIN 1,500 MG in SODIUM CHLORIDE 0.9% 500 ML 500 ML IVPB STA (19:13)
[2023-03-01 21:01] LABS: Anisocytosis Slight; Basophils % (A) 0 %; Eosinophils # (A) 0.2 k/uL (0-0.7); Eosinophils % (A) 2 %; HCT 39.4 % (34.0-46.0); HGB 12.5 gm/dL (11.4-16.0); Lymphocytes % (A) 28 %; MCH 26.5 pg (25.0-35.0); MCHC 31.7 g/dL (31.0-37.0); MCV 83.5 fL (80.0-100.0); Mean Platelet Volume 7.5; Monocytes # (A) 0.5 k/uL (0-1.0); Monocytes % (A) 5 %; Neutrophils # (A) 6.8 k/uL (1.3-7.7); Neutrophils % (A) 63 %; Platelet Count 473 k/uL (150-450); RBC 4.72 m/uL (3.80-5.40); RDW 16.5 % (11.5-15.5); WBC 10.7 k/uL (3.8-10.6)
[2023-03-01 21:11] LABS: ALT 21 U/L (4-34); AST 22 U/L (14-36); African American GFR (CKD) >90 (>60 ml/min/1.73 sqM); Albumin 3.6 g/dL (3.5-5.0); Alkaline Phosphatase 151 U/L (38-126); Anion Gap 12 mmol/L; Blood Urea Nitrogen 19 mg/dL (7-17); Calcium 8.6 mg/dL (8.4-10.2); Carbon Dioxide 22 mmol/L (22-30); Chloride 98 mmol/L (98-107); Glucose 414 mg/dL (74-99); Lipase 184 U/L (23-300); Non-African American GFR(CKD) >90 (>60 ml/min/1.73 sqM); Potassium 4.7 mmol/L (3.5-5.1); Sodium 132 mmol/L (137-145); Total Bilirubin 0.5 mg/dL (0.2-1.3); Total Protein 6.7 g/dL (6.3-8.2)
[2023-03-01] MEDS ORDERED: NALOXONE 0.4 MG/ML 1 ML VIAL IV PRN (21:39)
[2023-03-01] MEDS ORDERED: SODIUM CHLORIDE 0.9% 1,000 ML IV ONE (21:56)
[2023-03-01] MEDS: ATORVASTATIN 80 MG TAB PO SCH (22:25)
[2023-03-01 22:57] LABS: Glucose,Whole Blood 337 mg/dL (70-110)
[2023-03-01] MEDS: INSULIN DETEMIR (LEVEMIR) 100 UNIT/ML SYR SQ SCH (23:32)
[2023-03-01] MEDS: AMPICILLIN-SULBACTAM 3 GM in SODIUM CHLORIDE 0.9% 100 ML IVPB SCH (23:33)
[2023-03-02] MEDS: KETOROLAC 15 MG/ML 1 ML VIAL IVP PRN ×3 (00:04→20:53)
[2023-03-02] MEDS: ACETAMINOPHEN TAB 325 MG TAB PO PRN ×2 (04:26→13:33)
[2023-03-02 04:30] LABS: Anisocytosis Slight; Basophils % (A) 0 %; Eosinophils # (A) 0.2 k/uL (0-0.7); Eosinophils % (A) 2 %; HCT 35.2 % (34.0-46.0); HGB 11.4 gm/dL (11.4-16.0); Lymphocytes # (A) 2.8 k/uL (1.0-4.8); Lymphocytes % (A) 33 %; MCHC 32.3 g/dL (31.0-37.0); MCV 83.8 fL (80.0-100.0); Mean Platelet Volume 7.2; Monocytes # (A) 0.4 k/uL (0-1.0); Monocytes % (A) 5 %; Neutrophils # (A) 4.9 k/uL (1.3-7.7); Neutrophils % (A) 58 %; Platelet Count 361 k/uL (150-450); RDW 16.6 % (11.5-15.5); WBC 8.5 k/uL (3.8-10.6)
[2023-03-02 04:42] LABS: African American GFR (CKD) >90 (>60 ml/min/1.73 sqM); Anion Gap 10 mmol/L; Blood Urea Nitrogen 16 mg/dL (7-17); Calcium 7.9 mg/dL (8.4-10.2); Carbon Dioxide 21 mmol/L (22-30); Chloride 102 mmol/L (98-107); Glucose 299 mg/dL (74-99); Non-African American GFR(CKD) >90 (>60 ml/min/1.73 sqM); Sodium 133 mmol/L (137-145)
[2023-03-02 08:12] LABS: Glucose,Whole Blood 247 mg/dL (70-110)
[2023-03-02] MEDS: ALBUTEROL NEBULIZED 2.5 MG/3 ML INHALATION SCH ×4 (08:20→20:32)
[2023-03-02] MEDS: AMPICILLIN-SULBACTAM 3 GM in SODIUM CHLORIDE 0.9% 100 ML IVPB SCH ×3 (08:43→23:20)
[2023-03-02] MEDS: metFORMIN 500 MG TAB PO SCH (08:44)
[2023-03-02] MEDS: lisinopriL 20 MG TAB PO SCH (08:44)
[2023-03-02] MEDS: INSULIN ASPART (NovoLOG) 100 UNIT/ML VIAL SQ SCH ×3 (08:45→17:42)
[2023-03-02] MEDS ORDERED: SODIUM CHLORIDE 0.9% 500 ML 500 ML IV ONE (09:58)
[2023-03-02] MEDS: PANTOPRAZOLE 40 MG TABLET PO SCH (10:22)
--- NOTE | 2023-03-02 10:58 | XR ---
EXAMINATION TYPE: XR chest 2V DATE OF EXAM: 03/02/2023 COMPARISON: 10/30/2022 HISTORY: Shortness of breath TECHNIQUE: Frontal and lateral views of the chest are obtained. FINDINGS: Scattered senescent parenchymal changes noted. No evidence for infiltrate. No evidence for atelectasis. Heart size is stable. Mediastinal structures are stable and grossly unremarkable. No evidence for hilar prominence. Degenerative changes dorsal spine. IMPRESSION: 1. No evidence for acute pulmonary disease.
[2023-03-02 11:30] LABS: Anisocytosis Slight; Basophils % (A) 0 %; Eosinophils # (A) 0.2 k/uL (0-0.7); Eosinophils % (A) 2 %; HCT 35.7 % (34.0-46.0); HGB 11.7 gm/dL (11.4-16.0); Lymphocytes % (A) 27 %; MCH 27.1 pg (25.0-35.0); MCHC 32.7 g/dL (31.0-37.0); MCV 82.9 fL (80.0-100.0); Mean Platelet Volume 7.5; Microcytosis Slight; Monocytes # (A) 0.3 k/uL (0-1.0); Monocytes % (A) 4 %; Neutrophils # (A) 4.8 k/uL (1.3-7.7); Neutrophils % (A) 64 %; Platelet Count 399 k/uL (150-450); RBC 4.31 m/uL (3.80-5.40); RDW 16.6 % (11.5-15.5); WBC 7.6 k/uL (3.8-10.6)
[2023-03-02 12:03] LABS: ALT 18 U/L (4-34); AST 20 U/L (14-36); African American GFR (CKD) >90 (>60 ml/min/1.73 sqM); Albumin 2.8 g/dL (3.5-5.0); Albumin/Globulin Ratio 0.9; Alkaline Phosphatase 116 U/L (38-126); Anion Gap 11 mmol/L; Blood Urea Nitrogen 15 mg/dL (7-17); Calcium 8.2 mg/dL (8.4-10.2); Carbon Dioxide 19 mmol/L (22-30); Chloride 104 mmol/L (98-107); Glucose 207 mg/dL (74-99); Non-African American GFR(CKD) >90 (>60 ml/min/1.73 sqM); Potassium 4.3 mmol/L (3.5-5.1); Sodium 134 mmol/L (137-145); Total Bilirubin 0.3 mg/dL (0.2-1.3); Total Protein 5.8 g/dL (6.3-8.2)
[2023-03-02] MEDS: INSULIN DETEMIR (LEVEMIR) 100 UNIT/ML SYR SQ SCH (12:04)
[2023-03-02] MEDS: SODIUM CHLORIDE 0.9% 1,000 ML IV SCH ×3 (12:11→23:21)
[2023-03-02 12:20] LABS: Glucose,Whole Blood 176 mg/dL (70-110)
[2023-03-02] MEDS: traMADol 50 MG TAB PO SCH ×2 (15:11→23:19)
[2023-03-02 17:32] LABS: Glucose,Whole Blood 467 mg/dL (70-110)
[2023-03-02] MEDS: ATORVASTATIN 80 MG TAB PO SCH (20:53)
[2023-03-02] MEDS: traZODone HCL 50 MG TAB PO PRN (20:53)
[2023-03-02 21:05] LABS: Glucose,Whole Blood 222 mg/dL (70-110)
[2023-03-02 23:55] LABS: Chol/HDL Ratio 9.75 Ratio
[2023-03-03] MEDS: KETOROLAC 15 MG/ML 1 ML VIAL IVP PRN ×2 (04:44→12:59)
[2023-03-03] MEDS: SODIUM CHLORIDE 0.9% 1,000 ML IV SCH ×3 (04:44→21:10)
[2023-03-03 05:49] LABS: Estimated Average Glucose >470 mg/dL
[2023-03-03 08:08] LABS: Glucose,Whole Blood 153 mg/dL (70-110)
[2023-03-03] MEDS: traMADol 50 MG TAB PO SCH ×3 (08:14→21:09)
[2023-03-03] MEDS: PANTOPRAZOLE 40 MG TABLET PO SCH (08:14)
[2023-03-03] MEDS: lisinopriL 20 MG TAB PO SCH (08:14)
[2023-03-03] MEDS: metFORMIN 500 MG TAB PO SCH (08:15)
[2023-03-03] MEDS: AMPICILLIN-SULBACTAM 3 GM in SODIUM CHLORIDE 0.9% 100 ML IVPB SCH ×2 (08:15→16:30)
[2023-03-03] MEDS: INSULIN DETEMIR (LEVEMIR) 100 UNIT/ML SYR SQ SCH (08:15)
[2023-03-03] MEDS: ALBUTEROL NEBULIZED 2.5 MG/3 ML INHALATION SCH ×4 (08:18→18:12)
[2023-03-03] MEDS: INSULIN ASPART (NovoLOG) 100 UNIT/ML VIAL SQ SCH ×5 (09:27→21:10)
[2023-03-03 11:53] LABS: Glucose,Whole Blood 231 mg/dL (70-110)
[2023-03-03 13:36] LABS: Chol/HDL Ratio 8.16 Ratio
[2023-03-03 14:03] LABS: ALT 14 U/L (8-44); AST 28 U/L (13-35); Albumin 2.9 g/dL (3.8-4.9); Albumin/Globulin Ratio 1.12 Ratio (1.60-3.17); Alkaline Phosphatase 116 U/L (41-126); Blood Urea Nitrogen 12.3 mg/dL (9.0-27.0); Calcium 8.4 mg/dL (8.7-10.3); Carbon Dioxide 18.9 mmol/L (21.6-31.8); Chloride 106 mmol/L (96-109); Globulin 2.6 g/dL (1.6-3.3); Glucose 165 mg/dL (70-110); Potassium 5.1 mmol/L (3.5-5.5); Sodium 138 mmol/L (135-145); Total Bilirubin 0.2 mg/dL (0.3-1.2); Total Protein 5.5 g/dL (6.2-8.2)
--- NOTE | 2023-03-03 15:53 | PN ---
PROGRESS NOTE DATE OF SERVICE: 03/02/2023 CHIEF COMPLAINT: Cellulitis and abscess in the left lower quadrant and posterior right thigh. HISTORY OF PRESENT ILLNESS: This lady is doing fairly well. She is asking for more pain medication, but this is a habit of hers when she gets in the hospital. PHYSICAL EXAMINATION: CHEST: Clear. CARDIAC: Normal. ABDOMEN: Soft and nontender. IMPRESSION: Cellulitis and abscess in the left lower quadrant and posterior right thigh, probably due to methicillin-resistant Staphylococcus aureus. PLAN: Continue with IV fluids and antibiotics. MMODL / IJN: [id number] /
--- NOTE | 2023-03-03 17:11 | PN ---
PROGRESS NOTE CHIEF COMPLAINT: Abdominal wall abscess. HISTORY OF PRESENT ILLNESS: This lady is doing well. Antibiotic is improving particularly the lesion in the left lower quadrant. Blood sugars and blood pressure are under fairly good control, and lipid panel has been ordered. PHYSICAL EXAMINATION: HEAD, EARS, EYES, NOSE, MOUTH, AND THROAT: Normal. CHEST: Clear. CARDIAC: Normal. ABDOMEN: Soft and nontender. Areas on the left lower quadrant and back to the right thigh are improving. IMPRESSION: 1. Cellulitis or abscess of the left lower quadrant and right posterior thigh. 2. Diabetes. PLAN: Continue with current treatment. MMODL / IJN: [id number] /
[2023-03-03 17:34] LABS: Glucose,Whole Blood 181 mg/dL (70-110)
[2023-03-03 20:10] LABS: Glucose,Whole Blood 195 mg/dL (70-110)
[2023-03-03] MEDS: traZODone HCL 50 MG TAB PO PRN (21:09)
[2023-03-03] MEDS: ATORVASTATIN 80 MG TAB PO SCH (21:09)
[2023-03-04 00:09] LABS: Basophils # (A) 0.06 X 10*3/uL (0.00-0.10); Basophils % (A) 0.8 %; Eosinophils # (A) 0.25 X 10*3/uL (0.04-0.35); Eosinophils % (A) 3.3 %; HCT 35.2 % (37.2-46.3); HGB 11.7 g/dL (12.0-15.0); Lymphocytes # (A) 3.12 X 10*3/uL (0.90-5.00); Lymphocytes % (A) 40.9 %; MCH 27.3 pg (27.0-32.0); MCHC 33.2 g/dL (32.0-37.0); MCV 82.2 FL (80.0-97.0); Monocytes # (A) 0.41 X 10*3/uL (0.20-1.00); Monocytes % (A) 5.4 %; NRBC Per 100 WBC 0 X 10*3/uL (0.00-0.01); Neutrophils # (A) 3.74 X 10*3/uL (1.80-7.70); Neutrophils % (A) 49.1 %; Platelet Count 385 X 10*3/uL (140-440); RBC 4.28 X 10*6/uL (4.10-5.20); WBC 7.62 X 10*3/uL (4.50-10.00)
[2023-03-04 00:13] LABS: Immature Platelet Fraction 1.5 % (1.1-6.1)
[2023-03-04] MEDS: AMPICILLIN-SULBACTAM 3 GM in SODIUM CHLORIDE 0.9% 100 ML IVPB SCH ×2 (00:21→08:41)
[2023-03-04] MEDS: KETOROLAC 15 MG/ML 1 ML VIAL IVP PRN ×2 (00:22→08:55)
[2023-03-04] MEDS: SODIUM CHLORIDE 0.9% 1,000 ML IV SCH ×4 (06:02→22:02)
--- NOTE | 2023-03-04 07:37 | HP ---
HISTORY AND PHYSICAL CHIEF COMPLAINT: Abscess in the left lower quadrant of the abdomen and back to the right thigh. HISTORY OF PRESENT ILLNESS: This is another admission for this 52-year-old obese, noncompliant, diabetic. She developed a superficial infection in the left lower quadrant and one on the right lower buttock area. They were getting worse and worse, and she came into the emergency room. REVIEW OF SYSTEMS: She has had no fever or chills, chest pain, abdominal pain, nausea, vomiting, diarrhea, urinary complaints, etc. Past medical history, family history, and personal and social histories are unremarkable except she generally does not take good care of herself and keep her blood sugars down. She is also prone to pancreatitis probably secondary to hypertriglyceridemia. Remainder of history is unremarkable. PHYSICAL EXAMINATION: VITAL SIGNS: Normal. She is afebrile. GENERAL: She appeared to be obese, in no acute distress. HEAD, EARS, EYES, NOSE, MOUTH, AND THROAT: Normal. CHEST: Clear. CARDIAC: Normal. ABDOMEN: Protuberant. Soft. She has about a 2- or 3-inch diameter abscess or necrotic cellulitic area in the left lower quadrant. This would be compatible with MRSA. She also has a smaller one on the back of the proximal right thigh. Remainder of the exam is normal. IMPRESSION: 1. Abscess or cellulitis with ulceration in the left lower quadrant as well as the right posterior thigh. Probably methicillin-resistant Staphylococcus aureus. 2. Poorly-controlled diabetes mellitus. 3. History of triglyceridemia. 4. History of pancreatitis. PLAN: 1. Bedrest. 2. IV fluids. 3. IV antibiotics. MMODL / IJN: [id number] /
[2023-03-04 07:50] LABS: Glucose,Whole Blood 212 mg/dL (70-110)
[2023-03-04] MEDS: ALBUTEROL NEBULIZED 2.5 MG/3 ML INHALATION SCH ×4 (08:13→18:20)
[2023-03-04] MEDS: INSULIN DETEMIR (LEVEMIR) 100 UNIT/ML SYR SQ SCH (08:40)
[2023-03-04] MEDS: lisinopriL 20 MG TAB PO SCH (08:40)
[2023-03-04] MEDS: PANTOPRAZOLE 40 MG TABLET PO SCH (08:40)
[2023-03-04] MEDS: traMADol 50 MG TAB PO SCH ×3 (08:40→20:58)
[2023-03-04] MEDS: metFORMIN 500 MG TAB PO SCH (08:40)
[2023-03-04] MEDS: INSULIN ASPART (NovoLOG) 100 UNIT/ML VIAL SQ SCH ×7 (08:41→20:58)
[2023-03-04] MEDS ORDERED: VANCOMYCIN IV PER PHARMACY 1 EACH MISC MISCELLANE PRN (10:16)
[2023-03-04] MEDS: VANCOMYCIN 1,750 MG in SODIUM CHLORIDE 0.9% 500 ML 500 ML IVPB SCH ×2 (11:27→22:02)
[2023-03-04] MEDS: amLODIPine 10 MG TAB PO SCH (11:27)
[2023-03-04 11:58] VITALS: BMI 44.3
[2023-03-04 12:20] LABS: Glucose,Whole Blood 180 mg/dL (70-110)
[2023-03-04 17:22] LABS: Glucose,Whole Blood 145 mg/dL (70-110)
[2023-03-04 20:45] LABS: Glucose,Whole Blood 217 mg/dL (70-110)
[2023-03-04] MEDS: ATORVASTATIN 80 MG TAB PO SCH (20:58)
[2023-03-05] MEDS: ACETAMINOPHEN TAB 325 MG TAB PO PRN (01:19)
--- NOTE | 2023-03-05 03:43 | PN ---
PROGRESS NOTE DATE OF SERVICE: 03/04/2023 CHIEF COMPLAINT: MRSA abscess of left lower quadrant. HISTORY OF PRESENT ILLNESS: This lady is doing fairly well. Sugars are under fairly good control. It is interesting that she has a hemoglobin A1c of 15.5. Cultures are trending toward MRSA and she will be started on vancomycin. PHYSICAL EXAMINATION: CHEST: Clear. CARDIAC: Normal. ABDOMEN: Soft, nontender. The lesion in the left lower quadrant has slightly less erythema in the borders and is draining copious purulent material. IMPRESSION: 1. Methicillin-resistant Staphylococcus aureus abscess or cellulitis of the left lower quadrant. 2. Poorly controlled diabetes mellitus. 3. Hypertriglyceridemia with a history of pancreatitis. PLAN: Change Unasyn to vancomycin. MMODL / IJN: [id number] /
[2023-03-05 06:12] LABS: Glucose,Whole Blood 179 mg/dL (70-110)
[2023-03-05] MEDS: SODIUM CHLORIDE 0.9% 1,000 ML IV SCH ×3 (06:12→20:46)
[2023-03-05] MEDS: INSULIN ASPART (NovoLOG) 100 UNIT/ML VIAL SQ SCH ×7 (06:15→20:43)
[2023-03-05 07:29] LABS: African American GFR (CKD) >90 (>60 ml/min/1.73 sqM); Non-African American GFR(CKD) >90 (>60 ml/min/1.73 sqM)
[2023-03-05] MEDS: INSULIN DETEMIR (LEVEMIR) 100 UNIT/ML SYR SQ SCH (08:55)
[2023-03-05] MEDS: lisinopriL 20 MG TAB PO SCH (08:55)
[2023-03-05] MEDS: metFORMIN 500 MG TAB PO SCH (08:55)
[2023-03-05] MEDS: amLODIPine 10 MG TAB PO SCH (08:55)
[2023-03-05] MEDS: PANTOPRAZOLE 40 MG TABLET PO SCH (08:55)
[2023-03-05] MEDS: traMADol 50 MG TAB PO SCH ×3 (08:59→22:24)
[2023-03-05] MEDS: ALBUTEROL NEBULIZED 2.5 MG/3 ML INHALATION SCH ×4 (09:19→20:02)
--- NOTE | 2023-03-05 10:37 | CDI ---
Documentation Clarification Form Date: From: Celeste Inman Phone: [phone] Admit Date: 03/01/2023 09:38:00 PM Patient Name: Dayna Le Visit Number: [id number] Discharge Date: ATTENTION: The Clinical Documentation Specialists (CDI) and [facility] Coding Staff appreciate your assistance in clarifying documentation. Please respond to the clarification below the line at the bottom and electronically sign. The CDI & [facility] Coding staff will review the response and follow-up if needed. Please note: Queries are made part of the Legal Health Record. If you have any questions, please contact the author of this message via ITS. Dr. Guillermo Cerda Cellulitis is documented in the Admission H&P on 03/04. Additional clarification regarding the type of cellulitis is requested. History/risk factors: "52-year-old female with known history of diabetes who presents emergency department reporting wounds on her left abdomen and posterior right thigh. States she has a history of MRSA and developed the infections 2 days ago." - Per ED Note on 03/01 Clinical Indicators: "Abscess in the left lower quadrant of the abdomen and back to the right thigh" "noncompliant" "Poorly-controlled diabetes mellitius" Per H&P on 03/03 Treatment: Per H&P on 03/03 IV fluids IV Antibiotics "change Unasyn to Vancomycin" - Per Progress Note on 03/04 Please clarify the etiology of the cellulitis, if known: [ ] Cellulitis is a diabetic skin complication [ ] Cellulitis is not a diabetic skin complication [ ] Other, please specify: [ ] Unable to determine MTDD
[2023-03-05] MEDS: VANCOMYCIN 2,000 MG in SODIUM CHLORIDE 0.9% 500 ML 500 ML IVPB SCH ×2 (11:06→22:24)
[2023-03-05] MEDS: hydrALAZINE HCL 25 MG TAB PO SCH ×2 (12:14→20:42)
[2023-03-05 12:18] LABS: Glucose,Whole Blood 126 mg/dL (70-110)
[2023-03-05 17:20] LABS: Glucose,Whole Blood 177 mg/dL (70-110)
[2023-03-05 20:28] LABS: Glucose,Whole Blood 159 mg/dL (70-110)
--- NOTE | 2023-03-05 20:31 | PN ---
PROGRESS NOTE DATE OF SERVICE: 03/05/2023 CHIEF COMPLAINT: MRSA abscess of the abdominal wall and uncontrolled diabetes and hypertension. HISTORY OF PRESENT ILLNESS: This lady is doing fairly well, but she still has active purulent drainage from the left lower quadrant. Blood sugars and blood pressures are being addressed. PHYSICAL EXAMINATION: CHEST: Clear. CARDIAC: Normal. ABDOMEN: The lesion in the left lower quadrant is still draining copious amounts of purulence. The surrounding area of erythema is slightly smaller. IMPRESSION: 1. Methicillin-resistant Staphylococcus aureus cellulitis and abscess of the left lower quadrant. 2. Uncontrolled insulin-dependent diabetes mellitus. 3. Uncontrolled hypertension. 4. History of pancreatitis. 5. History of hypertriglyceridemia. PLAN: Continue with IV antibiotics and local wound care. MMODL / IJN: [id number] /
[2023-03-05] MEDS: ATORVASTATIN 80 MG TAB PO SCH (20:42)
[2023-03-06] MEDS: traZODone HCL 50 MG TAB PO PRN ×2 (01:55→21:33)
[2023-03-06] MEDS: SODIUM CHLORIDE 0.9% 1,000 ML IV SCH ×4 (02:13→20:02)
[2023-03-06 05:51] LABS: Glucose,Whole Blood 170 mg/dL (70-110)
[2023-03-06] MEDS: INSULIN ASPART (NovoLOG) 100 UNIT/ML VIAL SQ SCH ×7 (06:14→20:56)
[2023-03-06] MEDS: ALBUTEROL NEBULIZED 2.5 MG/3 ML INHALATION SCH ×4 (08:36→19:54)
[2023-03-06] MEDS: amLODIPine 10 MG TAB PO SCH (08:48)
[2023-03-06] MEDS: INSULIN DETEMIR (LEVEMIR) 100 UNIT/ML SYR SQ SCH (08:48)
[2023-03-06] MEDS: hydrALAZINE HCL 25 MG TAB PO SCH ×2 (08:48→20:01)
[2023-03-06] MEDS: traMADol 50 MG TAB PO SCH ×3 (08:48→20:01)
[2023-03-06] MEDS: lisinopriL 20 MG TAB PO SCH (08:48)
[2023-03-06] MEDS: metFORMIN 500 MG TAB PO SCH (08:48)
[2023-03-06] MEDS: PANTOPRAZOLE 40 MG TABLET PO SCH (08:48)
[2023-03-06] MEDS ORDERED: VANCOMYCIN TROUGH DUE 1 EACH MISC MISCELLANE ONE (10:00)
[2023-03-06 11:50] LABS: Glucose,Whole Blood 147 mg/dL (70-110)
[2023-03-06 11:53] LABS: African American GFR (CKD) >90 (>60 ml/min/1.73 sqM); Non-African American GFR(CKD) >90 (>60 ml/min/1.73 sqM)
[2023-03-06] MEDS: VANCOMYCIN 2,000 MG in SODIUM CHLORIDE 0.9% 500 ML 500 ML IVPB SCH (12:21)
[2023-03-06 17:30] LABS: Glucose,Whole Blood 130 mg/dL (70-110)
[2023-03-06 20:01] LABS: Glucose,Whole Blood 193 mg/dL (70-110)
[2023-03-06] MEDS: ATORVASTATIN 80 MG TAB PO SCH (20:01)
--- NOTE | 2023-03-06 23:19 | PN ---
PROGRESS NOTE DATE OF SERVICE: 03/06/2023 CHIEF COMPLAINT: MRSA cellulitis, and abscess of the left lower quadrant. HISTORY OF PRESENT ILLNESS: This lady is doing better. Blood sugars and blood pressures are down. The area in the left lower quadrant is healing very nicely now. It is much less purulent, smaller and less inflamed. IMPRESSION: MRSA cellulitis and abscess of the left lower quadrant. PLAN: Continue with vancomycin. MMODL / IJN: [id number] /
[2023-03-07] MEDS: SODIUM CHLORIDE 0.9% 1,000 ML IV SCH ×4 (03:40→22:45)
[2023-03-07] MEDS: VANCOMYCIN 1,750 MG in SODIUM CHLORIDE 0.9% 500 ML 500 ML IVPB SCH ×2 (03:40→16:37)
[2023-03-07 06:09] LABS: Glucose,Whole Blood 187 mg/dL (70-110)
[2023-03-07] MEDS: INSULIN ASPART (NovoLOG) 100 UNIT/ML VIAL SQ SCH ×7 (06:19→21:15)
[2023-03-07] MEDS: ALBUTEROL NEBULIZED 2.5 MG/3 ML INHALATION SCH ×4 (08:17→19:48)
[2023-03-07] MEDS: amLODIPine 10 MG TAB PO SCH (08:40)
[2023-03-07] MEDS: metFORMIN 500 MG TAB PO SCH (08:40)
[2023-03-07] MEDS: PANTOPRAZOLE 40 MG TABLET PO SCH (08:40)
[2023-03-07] MEDS: lisinopriL 20 MG TAB PO SCH (08:41)
[2023-03-07] MEDS: hydrALAZINE HCL 25 MG TAB PO SCH ×2 (08:41→21:15)
[2023-03-07] MEDS: INSULIN DETEMIR (LEVEMIR) 100 UNIT/ML SYR SQ SCH (08:41)
[2023-03-07] MEDS: traMADol 50 MG TAB PO SCH ×3 (08:42→21:15)
[2023-03-07 11:33] LABS: Anisocytosis Slight; Basophils % (A) 0 %; Eosinophils # (A) 0.2 k/uL (0-0.7); Eosinophils % (A) 3 %; HCT 36.7 % (34.0-46.0); HGB 11.4 gm/dL (11.4-16.0); Hypochromasia Slight; Lymphocytes # (A) 1.9 k/uL (1.0-4.8); Lymphocytes % (A) 21 %; MCH 26.2 pg (25.0-35.0); MCHC 31.1 g/dL (31.0-37.0); MCV 84.2 fL (80.0-100.0); Mean Platelet Volume 7.4; Monocytes # (A) 0.5 k/uL (0-1.0); Monocytes % (A) 5 %; Neutrophils # (A) 6.6 k/uL (1.3-7.7); Neutrophils % (A) 71 %; Platelet Count 375 k/uL (150-450); RBC 4.36 m/uL (3.80-5.40); RDW 17.1 % (11.5-15.5); WBC 9.3 k/uL (3.8-10.6)
[2023-03-07 11:43] LABS: ALT 21 U/L (4-34); AST 27 U/L (14-36); African American GFR (CKD) >90 (>60 ml/min/1.73 sqM); Albumin 3.2 g/dL (3.5-5.0); Albumin/Globulin Ratio 1.1; Alkaline Phosphatase 99 U/L (38-126); Anion Gap 15 mmol/L; Blood Urea Nitrogen 17 mg/dL (7-17); Calcium 8.5 mg/dL (8.4-10.2); Carbon Dioxide 22 mmol/L (22-30); Chloride 103 mmol/L (98-107); Globulin 2.8 g/dL; Glucose 178 mg/dL (74-99); Non-African American GFR(CKD) >90 (>60 ml/min/1.73 sqM); Potassium 4.4 mmol/L (3.5-5.1); Sodium 140 mmol/L (137-145); Total Bilirubin 0.4 mg/dL (0.2-1.3)
[2023-03-07 11:45] LABS: Glucose,Whole Blood 158 mg/dL (70-110)
[2023-03-07 17:19] LABS: Glucose,Whole Blood 153 mg/dL (70-110)
[2023-03-07 20:43] LABS: Glucose,Whole Blood 323 mg/dL (70-110)
[2023-03-07] MEDS: ATORVASTATIN 80 MG TAB PO SCH (21:15)
[2023-03-07] MEDS: traZODone HCL 50 MG TAB PO PRN (22:47)
[2023-03-08] MEDS: SODIUM CHLORIDE 0.9% 1,000 ML IV SCH ×3 (04:09→20:25)
[2023-03-08] MEDS: VANCOMYCIN 1,750 MG in SODIUM CHLORIDE 0.9% 500 ML 500 ML IVPB SCH ×2 (04:10→16:20)
[2023-03-08 06:15] LABS: African American GFR (CKD) >90 (>60 ml/min/1.73 sqM); Non-African American GFR(CKD) >90 (>60 ml/min/1.73 sqM)
[2023-03-08 06:58] LABS: Glucose,Whole Blood 179 mg/dL (70-110)
[2023-03-08] MEDS: INSULIN ASPART (NovoLOG) 100 UNIT/ML VIAL SQ SCH ×7 (06:58→20:58)
[2023-03-08] MEDS: metFORMIN 500 MG TAB PO SCH (08:38)
[2023-03-08] MEDS: lisinopriL 20 MG TAB PO SCH (08:38)
[2023-03-08] MEDS: INSULIN DETEMIR (LEVEMIR) 100 UNIT/ML SYR SQ SCH (08:39)
[2023-03-08] MEDS: PANTOPRAZOLE 40 MG TABLET PO SCH (08:39)
[2023-03-08] MEDS: hydrALAZINE HCL 25 MG TAB PO SCH ×2 (08:39→20:24)
[2023-03-08] MEDS: traMADol 50 MG TAB PO SCH ×3 (08:40→20:24)
[2023-03-08] MEDS: ALBUTEROL NEBULIZED 2.5 MG/3 ML INHALATION SCH ×4 (09:14→21:05)
[2023-03-08] MEDS: amLODIPine 10 MG TAB PO SCH (10:09)
[2023-03-08] MEDS ORDERED: LIDOCAINE 1% INJ 10MG/ML (20 ML MDV) SQ ONE (11:48)
[2023-03-08 12:06] LABS: Glucose,Whole Blood 262 mg/dL (70-110)
--- NOTE | 2023-03-08 15:17 | P.GSCN ---
History of Present Illness History of present illness: 52-year-old white female patient came to the emergency room with history of abscess of her left lower abdomen patient has been admitted local wound care and IV antibiotic and the patient patient had a abscess did open up and had some drainage patient also has a posterior on the right leg posterior aspect of the thigh no drain noted Medical history history of diabetes On examination neck is supple no bruit appreciated Chest is clear good and both lungs first and second sound present Abdomen soft nontender femorals are 1+ bilateral Eschen has a wound on the left lower abdomen no drain noted base of the wound is granulating the start using Aquacel silver and patient is an IV antibiotic we'll silver should be placed every 48 hours follow with you Past Medical History Past Medical History: Diabetes Mellitus, GERD/Reflux, Hyperlipidemia, Hy pertension, Syncope Additional Past Medical History / Comment(s): Pt recently admitted to [facility] on 07/21/21 with uncontrolled IDDM and hyperkalemia. Other hx: Recurrent panc reatitis, hypertriglyceridemia, elevated lipase, IDDM type II, UTI, chronic low back pain, bulging discs, dental abscesses in past. History of Any Multi-Drug Resistant Organisms: MRSA Year Discovered:: 03/01/23 MDRO Source:: Abdomen Past Surgical History: Tubal Ligation Additional Past Surgical History / Comment(s): Age 7 had VSD repair Past Anesthesia/Blood Transfusion Reactions: No Reported Reaction Past Psychological History: No Psychological Hx Reported Additional Psychological History / Comment(s): She uses no assistive devices. She does not drive. She gets to appointments by walking or using the bus system. She has a glucometer at home. Smoking Status: Former smoker, Second hand smoke exposure, Vaper Past Alcohol Use History: None Reported Additional Past Alcohol Use History / Comment(s): Pt started smoking in 2000- pt states she quit smoking February or March of 2021 Past Drug Use History: None Reported - Past Family History Mother Family Medical History: No Reported History Additional Family Medical History / Comment(s): Mother was healthy. She is , pt cannot recall cause of . Father Family Medical History: Pneumonia Additional Family Medical History / Comment(s): Father at the age of 67yrs from pneumonia Medications and Allergies Home Medications Medication Instructions Recorded Confirmed Type Atorvastatin [Lipitor] 80 mg PO HS 06/25/19 03/01/23 History lisinopriL 40 mg PO DAILY 09/24/20 03/01/23 History metFORMIN HCL [Glucophage] 500 mg PO DAILY 09/24/20 03/01/23 History traZODone HCL 50 mg PO HS PRN 01/11/21 03/01/23 History Ergocalciferol (Vitamin D2) 1,250 mcg PO TU 03/03/21 03/01/23 History [Drisdol (50,000 Iu)] Esomeprazole Magnesium [NexIUM] 20 mg PO DAILY 01/30/22 03/01/23 History INSULIN ASPART (NovoLOG) [NovoLOG 20 unit SQ AC-TID 11/26/22 03/01/23 History (formulary)] Insulin Detemir (Levemir) [Levemir] 90 unit SQ DAILY 11/26/22 03/01/23 History Ketoconazole 2% Cream [Nizoral 2%] 1 applic TOPICAL BID 01/16/23 03/01/23 History guaiFENesin-Coden 100-10MG/5ML 10 ml PO Q8H PRN 3 Days #90 ml 01/16/23 03/01/23 Rx [Robitussin AC] Benzonatate [Tessalon Perles] 100 mg PO TID PRN #20 capsule 01/30/23 03/01/23 Rx Albuterol Inhaler [Ventolin Hfa 2 puff INHALATION RT-QID 03/01/23 03/01/23 History Inhaler] Allergies Allergy/AdvReac Type Severity Reaction Status Date / Time levofloxacin [From Levaquin] Allergy Rash/Hives Verified 01/30/23 18:49 Surgical - Exam Vital Signs Temp Pulse Resp BP Pulse Ox 98.1 F 75 20 146/86 97 03/01/23 16:44 03/01/23 16:44 03/01/23 16:44 03/01/23 16:44 03/01/23 16:44 Results - Labs 03/07/23 11:13 03/08/23 05:29 Abnormal Lab Results - Last 24 Hours (Table) 03/07/23 03/07/23 03/08/23 Range/Units 17:18 20:39 06:50 POC Glucose (mg/dL) 153 H 323 H 179 H (70-110) mg/dL 03/08/23 Range/Units 12:04 POC Glucose (mg/dL) 262 H (70-110) mg/dL Diabetes panel 03/08/23 Range/Units 05:29 Creatinine 0.55 (0.52-1.04) mg/dL Pituitary panel 03/08/23 Range/Units 05:29 Creatinine 0.55 (0.52-1.04) mg/dL Adrenal panel 03/08/23 Range/Units 05:29 Creatinine 0.55 (0.52-1.04) mg/dL
[2023-03-08 17:31] LABS: Glucose,Whole Blood 183 mg/dL (70-110)
[2023-03-08] MEDS: ATORVASTATIN 80 MG TAB PO SCH (20:24)
--- NOTE | 2023-03-08 20:41 | PN ---
PROGRESS NOTE DATE OF SERVICE: 03/07/2023 CHIEF COMPLAINT: MRSA abscess and cellulitis of the left lower quadrant. HISTORY OF PRESENT ILLNESS: This lady is doing better. The wound is healing up quite quickly now. Blood sugars and blood pressure are under good control. PHYSICAL EXAMINATION: CHEST: Clear. CARDIAC: Normal. ABDOMEN: Soft and nontender. The lesion in the left lower quadrant is healing up quite quickly now. She has lost her IV. IMPRESSION: 1. Methicillin-resistant Staphylococcus aureus abscess and cellulitis of the left lower quadrant. 2. Diabetes. 3. Hypertension. 4. Renal failure. PLAN: Central line and continue with IV vancomycin. MMODL / IJN: [id number] /
[2023-03-08 20:56] LABS: Glucose,Whole Blood 257 mg/dL (70-110)
[2023-03-09] MEDS: SODIUM CHLORIDE 0.9% 1,000 ML IV SCH ×4 (01:57→23:04)
[2023-03-09] MEDS: VANCOMYCIN 1,750 MG in SODIUM CHLORIDE 0.9% 500 ML 500 ML IVPB SCH ×2 (03:51→16:08)
[2023-03-09 05:50] LABS: Glucose,Whole Blood 187 mg/dL (70-110)
[2023-03-09] MEDS: INSULIN ASPART (NovoLOG) 100 UNIT/ML VIAL SQ SCH ×7 (05:54→21:59)
[2023-03-09] MEDS: metFORMIN 500 MG TAB PO SCH (08:15)
[2023-03-09] MEDS: lisinopriL 20 MG TAB PO SCH (08:15)
[2023-03-09] MEDS: traMADol 50 MG TAB PO SCH ×3 (08:15→21:59)
[2023-03-09] MEDS: amLODIPine 10 MG TAB PO SCH (08:15)
[2023-03-09] MEDS: PANTOPRAZOLE 40 MG TABLET PO SCH (08:15)
[2023-03-09] MEDS: INSULIN DETEMIR (LEVEMIR) 100 UNIT/ML SYR SQ SCH (08:15)
[2023-03-09] MEDS: hydrALAZINE HCL 25 MG TAB PO SCH ×2 (08:15→21:59)
[2023-03-09] MEDS: ALBUTEROL NEBULIZED 2.5 MG/3 ML INHALATION SCH ×4 (08:25→18:26)
--- NOTE | 2023-03-09 09:11 | PN ---
PROGRESS NOTE DATE OF SERVICE: 03/08/2023 CHIEF COMPLAINT: Necrotic MRSA also in the left lower quadrant. HISTORY OF PRESENT ILLNESS: The patient is doing fairly well. Area is slightly smaller in the left lower quadrant, but is quite purulent. It could use debridement. PHYSICAL EXAMINATION: CHEST: Clear. CARDIAC: Normal. ABDOMEN: The area in the left lower quadrant is quite purulent now. IMPRESSION: Methicillin-resistant Staphylococcus aureus, also cellulitis of the left lower quadrant. PLAN: Surgical consult for debridement. MMODL / IJN: [id number] /
[2023-03-09 11:43] LABS: Glucose,Whole Blood 212 mg/dL (70-110)
[2023-03-09] MEDS ORDERED: VANCOMYCIN TROUGH DUE 1 EACH MISC MISCELLANE ONE (15:00)
[2023-03-09 17:37] LABS: Glucose,Whole Blood 173 mg/dL (70-110)
[2023-03-09 21:05] LABS: Glucose,Whole Blood 265 mg/dL (70-110)
[2023-03-09] MEDS: traZODone HCL 50 MG TAB PO PRN (21:58)
[2023-03-09] MEDS: ATORVASTATIN 80 MG TAB PO SCH (21:59)
[2023-03-10] MEDS: VANCOMYCIN 1,750 MG in SODIUM CHLORIDE 0.9% 500 ML 500 ML IVPB SCH ×2 (04:19→16:20)
[2023-03-10] MEDS: SODIUM CHLORIDE 0.9% 1,000 ML IV SCH ×3 (04:23→19:11)
[2023-03-10 06:23] LABS: Glucose,Whole Blood 186 mg/dL (70-110)
[2023-03-10] MEDS: INSULIN ASPART (NovoLOG) 100 UNIT/ML VIAL SQ SCH ×7 (06:33→20:58)
[2023-03-10] MEDS: ACETAMINOPHEN TAB 325 MG TAB PO PRN (06:35)
[2023-03-10] MEDS: hydrALAZINE HCL 25 MG TAB PO SCH ×2 (08:31→20:58)
[2023-03-10] MEDS: metFORMIN 500 MG TAB PO SCH (08:31)
[2023-03-10] MEDS: INSULIN DETEMIR (LEVEMIR) 100 UNIT/ML SYR SQ SCH (08:31)
[2023-03-10] MEDS: lisinopriL 20 MG TAB PO SCH (08:31)
[2023-03-10] MEDS: amLODIPine 10 MG TAB PO SCH (08:31)
[2023-03-10] MEDS: traMADol 50 MG TAB PO SCH ×3 (08:31→20:58)
[2023-03-10] MEDS: PANTOPRAZOLE 40 MG TABLET PO SCH (08:32)
[2023-03-10] MEDS: ALBUTEROL NEBULIZED 2.5 MG/3 ML INHALATION SCH ×4 (08:38→19:33)
[2023-03-10 11:45] LABS: Glucose,Whole Blood 189 mg/dL (70-110)
[2023-03-10 12:19] LABS: Glucose,Whole Blood 191 mg/dL (70-110)
[2023-03-10 17:17] LABS: Glucose,Whole Blood 175 mg/dL (70-110)
[2023-03-10 20:43] LABS: Glucose,Whole Blood 222 mg/dL (70-110)
[2023-03-10] MEDS: ATORVASTATIN 80 MG TAB PO SCH (20:58)
[2023-03-10 21:38] VITALS: RESP 16
[2023-03-10] MEDS: traZODone HCL 50 MG TAB PO PRN (21:58)
[2023-03-11] MEDS: SODIUM CHLORIDE 0.9% 1,000 ML IV SCH ×2 (02:51→08:37)
[2023-03-11] MEDS: VANCOMYCIN 1,750 MG in SODIUM CHLORIDE 0.9% 500 ML 500 ML IVPB SCH (03:31)
[2023-03-11 06:19] LABS: Glucose,Whole Blood 155 mg/dL (70-110)
[2023-03-11] MEDS: INSULIN ASPART (NovoLOG) 100 UNIT/ML VIAL SQ SCH ×4 (06:34→13:03)
[2023-03-11] MEDS: ACETAMINOPHEN TAB 325 MG TAB PO PRN (06:38)
[2023-03-11] MEDS: traMADol 50 MG TAB PO SCH (08:36)
[2023-03-11] MEDS: lisinopriL 20 MG TAB PO SCH (08:36)
[2023-03-11] MEDS: INSULIN DETEMIR (LEVEMIR) 100 UNIT/ML SYR SQ SCH (08:36)
[2023-03-11] MEDS: metFORMIN 500 MG TAB PO SCH (08:36)
[2023-03-11] MEDS: hydrALAZINE HCL 25 MG TAB PO SCH (08:36)
[2023-03-11] MEDS: amLODIPine 10 MG TAB PO SCH (08:36)
[2023-03-11] MEDS: PANTOPRAZOLE 40 MG TABLET PO SCH (08:37)
[2023-03-11] MEDS: ALBUTEROL NEBULIZED 2.5 MG/3 ML INHALATION SCH ×2 (08:50→11:46)
[2023-03-11 08:53] VITALS: BP 118/55; PULSE 48; TEMP 98.9
[2023-03-11 09:02] LABS: African American GFR (CKD) >90 (>60 ml/min/1.73 sqM); Non-African American GFR(CKD) >90 (>60 ml/min/1.73 sqM)
[2023-03-11 12:21] LABS: Glucose,Whole Blood 243 mg/dL (70-110)
[2023-03-11] MEDS ORDERED: SULFAMETHOX-TMP 800-160MG 1 EACH TAB PO SCH (21:00)
--- NOTE | 2023-03-16 08:35 | PN ---
PROGRESS NOTE DATE OF SERVICE: 03/09/2023 CHIEF COMPLAINT: Abdominal wall cellulitis and abscess. HISTORY OF PRESENT ILLNESS: This lady is doing a little bit better. The area on the abdomen is slowly improving. PHYSICAL EXAMINATION: CHEST: Clear. CARDIAC: Normal. ABDOMEN: Protuberant, soft, and the ulcerated MRSA area on the left lower quadrant is slowly improving. MMODL / IJN: [id number] /
--- NOTE | 2023-03-16 08:37 | PN ---
PROGRESS NOTE DATE OF SERVICE: 03/10/2023 CHIEF COMPLAINT: MRSA abscess and cellulitis abdominal wall. HISTORY OF PRESENT ILLNESS: This lady continues to slowly improve. Blood sugars are somewhat better and are being addressed as they rise. PHYSICAL EXAMINATION: Abdominal exam reveals that the MRSA ulcer and abscess of the left lower quadrant is slowly improving. IMPRESSION: 1. MRSA cellulitis and abscess of left lower quadrant. 2. Uncontrolled diabetes. PLAN: Continue with IV vancomycin. MMODL / IJN: [id number] /
--- NOTE | 2023-03-17 03:49 | DS ---
DISCHARGE SUMMARY CHIEF COMPLAINT: Abdominal wall cellulitis and abscess. HISTORY OF PRESENT ILLNESS AND PHYSICAL EXAM: Details of this lady's history and physical can be found in the initial workup. LABORATORY STUDIES: While she was in the hospital, she had laboratory studies, details of which can be found in the laboratory section of her chart. COURSE IN THE HOSPITAL: After admission, she was placed on bedrest, started on intravenous fluids and IV antibiotics. She was found to have MRSA and was switched over to vancomycin. She was seen by Surgery and the wound was debrided. She was doing well and the cellulitis was clearing well and the wound was nearly completely dry and it was felt she could go home on the 4th. She will follow up in the office. FINAL DIAGNOSES: 1. Methicillin-resistant Staphylococcus aureus, cellulitis and abscess of the left lower quadrant. 2. Uncontrolled insulin-dependent diabetes mellitus. 3. Depression. OPERATIONS: Debridement. CONSULTATIONS: General Surgery. She is improved. MMJOHANL / GOOD: [id number] /
--- NOTE | 2023-03-21 09:09 | CDI ---
Documentation Clarification Form Date: 03/05/2023 10:37:00 AM From: Celeste Inman Phone: [phone] Admit Date: 03/01/2023 09:38:00 PM Patient Name: Dyana Le Visit Number: [id number] Discharge Date: 03/11/2023 03:10:00 PM ATTENTION: The Clinical Documentation Specialists (CDI) and [facility] Coding Staff appreciate your assistance in clarifying documentation. Please respond to the clarification below the line at the bottom and electronically sign. The CDI & [facility] Coding staff will review the response and follow-up if needed. Please note: Queries are made part of the Legal Health Record. If you have any questions, please contact the author of this message via ITS. Dr. Guillermo Cerda Cellulitis is documented in the Admission H&P on 03/04. Additional clarification regarding the type of cellulitis is requested. History/risk factors: "52-year-old female with known history of diabetes who presents emergency department reporting wounds on her left abdomen and posterior right thigh. States she has a history of MRSA and developed the infections 2 days ago." - Per ED Note on 03/01 Clinical Indicators: "Abscess in the left lower quadrant of the abdomen and back to the right thigh" "noncompliant" "Poorly-controlled diabetes mellitius" Per H&P on 03/03 Treatment: Per H&P on 03/03 IV fluids IV Antibiotics "change Unasyn to Vancomycin" - Per Progress Note on 03/04 Please clarify the etiology of the cellulitis, if known: [ ] Cellulitis is a diabetic skin complication [ ] Cellulitis is not a diabetic skin complication [ ] Other, please specify: [ ] Unable to determine MTDD
--- NOTE | 2023-03-27 15:19 | CDI ---
Documentation Clarification Form Date: 03/05/2023 10:37:00 AM From: Celeste Inman Phone: [phone] Admit Date: 03/01/2023 09:38:00 PM Patient Name: Dayna Le Visit Number: [id number] Discharge Date: 03/11/2023 03:10:00 PM ATTENTION: The Clinical Documentation Specialists (CDI) and [facility] Coding Staff appreciate your assistance in clarifying documentation. Please respond to the clarification below the line at the bottom and electronically sign. The CDI & [facility] Coding staff will review the response and follow-up if needed. Please note: Queries are made part of the Legal Health Record. If you have any questions, please contact the author of this message via ITS. Dr. Guillermo Cerda Cellulitis is documented in the Admission H&P on 03/04. Additional clarification regarding the type of cellulitis is requested. History/risk factors: "52-year-old female with known history of diabetes who presents emergency department reporting wounds on her left abdomen and posterior right thigh. States she has a history of MRSA and developed the infections 2 days ago." - Per ED Note on 03/01 Clinical Indicators: "Abscess in the left lower quadrant of the abdomen and back to the right thigh" "noncompliant" "Poorly-controlled diabetes mellitius" Per H&P on 03/03 Treatment: Per H&P on 03/03 IV fluids IV Antibiotics "change Unasyn to Vancomycin" - Per Progress Note on 03/04 Please clarify the etiology of the cellulitis, if known: [ ] Cellulitis is a diabetic skin complication [ ] Cellulitis is not a diabetic skin complication [ ] Other, please specify: [ ] Unable to determine MTDD
--- NOTE | 2023-03-29 15:37 | CDI ---
Documentation Clarification Form Date: 03/05/2023 10:37:00 AM From: Celeste Inman Phone: [phone] Admit Date: 03/01/2023 09:38:00 PM Patient Name: Dayna Le Visit Number: [id number] Discharge Date: 03/11/2023 03:10:00 PM ATTENTION: The Clinical Documentation Specialists (CDI) and [facility] Coding Staff appreciate your assistance in clarifying documentation. Please respond to the clarification below the line at the bottom and electronically sign. The CDI & [facility] Coding staff will review the response and follow-up if needed. Please note: Queries are made part of the Legal Health Record. If you have any questions, please contact the author of this message via ITS. Dr. Guillermo Cerda Cellulitis is documented in the Admission H&P on 03/04. Additional clarification regarding the type of cellulitis is requested. History/risk factors: "52-year-old female with known history of diabetes who presents emergency department reporting wounds on her left abdomen and posterior right thigh. States she has a history of MRSA and developed the infections 2 days ago." - Per ED Note on 03/01 Clinical Indicators: "Abscess in the left lower quadrant of the abdomen and back to the right thigh" "noncompliant" "Poorly-controlled diabetes mellitius" Per H&P on 03/03 Treatment: Per H&P on 03/03 IV fluids IV Antibiotics "change Unasyn to Vancomycin" - Per Progress Note on 03/04 Please clarify the etiology of the cellulitis, if known: [ ] Cellulitis is a diabetic skin complication [ ] Cellulitis is not a diabetic skin complication [ ] Other, please specify: [ ] Unable to determine (Template Last Revised: April 2022) MTDD
--- NOTE | 2023-04-12 21:48 | CDI ---
Documentation Clarification Form Date: 03/05/2023 10:37:00 AM From: Celeste Inman Phone: [phone] Admit Date: 03/01/2023 09:38:00 PM Patient Name: Dayna Le Visit Number: [id number] Discharge Date: 03/11/2023 03:10:00 PM ATTENTION: The Clinical Documentation Specialists (CDI) and [facility] Coding Staff appreciate your assistance in clarifying documentation. Please respond to the clarification below the line at the bottom and electronically sign. The CDI & [facility] Coding staff will review the response and follow-up if needed. Please note: Queries are made part of the Legal Health Record. If you have any questions, please contact the author of this message via ITS. Dr. Guillermo Cerda Cellulitis is documented in the Admission H&P on 03/04. Additional clarification regarding the type of cellulitis is requested. History/risk factors: "52-year-old female with known history of diabetes who presents emergency department reporting wounds on her left abdomen and posterior right thigh. States she has a history of MRSA and developed the infections 2 days ago." - Per ED Note on 03/01 Clinical Indicators: "Abscess in the left lower quadrant of the abdomen and back to the right thigh" "noncompliant" "Poorly-controlled diabetes mellitius" Per H&P on 03/03 Treatment: Per H&P on 03/03 IV fluids IV Antibiotics "change Unasyn to Vancomycin" - Per Progress Note on 03/04 Please clarify the etiology of the cellulitis, if known: [ ] Cellulitis is a diabetic skin complication [ ] Cellulitis is not a diabetic skin complication [ ] Other, please specify: [ ] Unable to determine (Template Last Revised: April 2022) MTDD
--- NOTE | 2023-04-15 07:35 | MISC ---
MISCELLANOUS REPORT Cellulitis, diabetic skin complication. MMODL / IJN: [id number] /
--- NOTE | 2023-04-15 10:23 | CDI ---
Documentation Clarification Form Date: 03/05/2023 10:37:00 AM From: Celeste Inman Phone: [phone] Admit Date: 03/01/2023 09:38:00 PM Patient Name: Dayna Le Visit Number: [id number] Discharge Date: 03/11/2023 03:10:00 PM ATTENTION: The Clinical Documentation Specialists (CDI) and [facility] Coding Staff appreciate your assistance in clarifying documentation. Please respond to the clarification below the line at the bottom and electronically sign. The CDI & [facility] Coding staff will review the response and follow-up if needed. Please note: Queries are made part of the Legal Health Record. If you have any questions, please contact the author of this message via ITS. Dr. Guillermo Cerda Cellulitis is documented in the Admission H&P on 03/04. Additional clarification regarding the type of cellulitis is requested. History/risk factors: "52-year-old female with known history of diabetes who presents emergency department reporting wounds on her left abdomen and posterior right thigh. States she has a history of MRSA and developed the infections 2 days ago." - Per ED Note on 03/01 Clinical Indicators: "Abscess in the left lower quadrant of the abdomen and back to the right thigh" "noncompliant" "Poorly-controlled diabetes mellitius" Per H&P on 03/03 Treatment: Per H&P on 03/03 IV fluids IV Antibiotics "change Unasyn to Vancomycin" - Per Progress Note on 03/04 Please clarify the etiology of the cellulitis, if known: [ ] Cellulitis is a diabetic skin complication [ ] Cellulitis is not a diabetic skin complication [ ] Other, please specify: [ ] Unable to determine MTDD
== END 2023-03-11 15:10 | disposition home or self-care (01) | DRG 638 ==
LOC: EC 16:32 → OBSVTOIN 21:38 → 6NMEDSUR 21:38
PROVIDERS: ADMIT Family Medicine; ATTEND Family Medicine
PROC: 05HF33Z Insertion of Infusion Device into Left Cephalic Vein, Percutaneous Approach (ICD-10-PCS; principal; 2023-03-07 11:50)
DX: E11.628 Type 2 diabetes mellitus with other skin complications (principal); K86.1 Other chronic pancreatitis; L02.211 Cutaneous abscess of abdominal wall; L02.415 Cutaneous abscess of right lower limb; Z68.41 Body mass index [BMI] 40.0-44.9, adult; L03.311 Cellulitis of abdominal wall; B95.62 Methicillin resistant Staphylococcus aureus infection as the cause of diseases classified elsewhere; E11.65 Type 2 diabetes mellitus with hyperglycemia; E66.9 Obesity, unspecified; Z79.4 Long term (current) use of insulin; E78.1 Pure hyperglyceridemia; I10 Essential (primary) hypertension; K21.9 Gastro-esophageal reflux disease without esophagitis; G89.29 Other chronic pain; M54.50 Low back pain, unspecified; Z91.199 Patient's noncompliance with other medical treatment and regimen due to unspecified reason; Z77.29 Contact with and (suspected) exposure to other hazardous substances; Z79.84 Long term (current) use of oral hypoglycemic drugs; Z79.899 Other long term (current) drug therapy; Z86.14 Personal history of Methicillin resistant Staphylococcus aureus infection; Z87.891 Personal history of nicotine dependence; Z71.3 Dietary counseling and surveillance; Z88.1 Allergy status to other antibiotic agents
CPT/HCPCS: 36410; 36415; 71046; 76937; 80048; 80053; 80061; 80202; 82565; 83036; 83605; 83690; 83721; 84484; 85025; 87040; 87070; 87077; 87186; 87205; 94640; 96365; 96375; 99285

== ENCOUNTER 2023-03-28 09:32 | Inpatient (IN) | payer MEDICARE, OTHER ==
[2023-03-28 10:02] LABS: Glucose,Whole Blood 578 mg/dL (70-110)
[2023-03-28] MEDS ORDERED: SODIUM CHLORIDE 0.9% 1,000 ML IV STA ×2 (10:03)
[2023-03-28] MEDS ORDERED: SODIUM CHLORIDE 0.9% 500 ML 500 ML IV STA (10:03)
[2023-03-28] MEDS ORDERED: INSULIN REGULAR 100 UNIT/ML VIAL (IV) IV ONE (10:03)
--- NOTE | 2023-03-28 10:04 | ED ---
Recheck HPI - General Chief Complaint: Recheck/Abnormal Lab/Rx Stated Complaint: Hyperglycemia Time Seen by Provider: 03/28/23 09:58 Source: EMS, RN notes reviewed, old records reviewed Mode of arrival: EMS Limitations: no limitations - History of Present Illness Initial Comments: This is a 52-year-old female the ER well-known to this emergency department. Patient presents to the ER today for evaluation of severe hyperglycemia, patient is well-known to this emergency department for evaluation of elevated blood sugar and altered mental status. Patient admits to significant weakness and not feeling well MD Complaint: wound re-check (Abdominal chest wound), abnormal lab (Elevated blood sugar) -: days(s) Returns Today for: Called Because of Abnormal Lab/Test, needs IV antibiotics, persistent/worsening pain related to initial visit Symptoms Since Prior Visit: worsening pain Associated Symptoms: none Treatments Prior to Arrival: other - Related Data Home Medications Medication Instructions Recorded Confirmed Atorvastatin [Lipitor] 80 mg PO HS 06/25/19 03/28/23 lisinopriL 40 mg PO DAILY 09/24/20 03/28/23 traZODone HCL 50 mg PO HS PRN 01/11/21 03/28/23 Ergocalciferol (Vitamin D2) 1,250 mcg PO TU 03/03/21 03/28/23 [Drisdol (50,000 Iu)] Esomeprazole Magnesium [NexIUM] 20 mg PO DAILY 01/30/22 03/28/23 INSULIN ASPART (NovoLOG) [NovoLOG 20 unit SQ AC-TID 11/26/22 03/28/23 (formulary)] Insulin Detemir (Levemir) [Levemir] 90 unit SQ DAILY 11/26/22 03/28/23 Albuterol Inhaler [Ventolin Hfa 2 puff INHALATION RT-QID 03/01/23 03/28/23 Inhaler] Previous Rx's Medication Instructions Recorded amLODIPine [Norvasc] 10 mg PO DAILY #30 tab 03/11/23 hydrALAZINE HCL [Apresoline] 25 mg PO BID #60 tab 03/11/23 Amoxic-Pot Clav 875-125Mg 1 each PO Q12HR #20 tab 04/04/23 [Augmentin 875-125] Allergies Allergy/AdvReac Type Severity Reaction Status Date / Time levofloxacin [From Levaquin] Allergy Rash/Hives Verified 03/28/23 12:42 Review of Systems ROS Statement: Those systems with pertinent positive or pertinent negative responses have been documented in the HPI. ROS Other: All systems not noted in ROS Statement are negative. Past Medical History Past Medical History: Diabetes Mellitus, GERD/Reflux, Hyperlipidemia, Hypertension, Syncope Additional Past Medical History / Comment(s): Pt recently admitted to [facility] on 07/21/21 with uncontrolled IDDM and hyperkalemia. Other hx: Recurrent pancreatitis, hypertriglyceridemia, elevated lipase, IDDM type II, UTI, chronic low back pain, bulging discs, dental abscesses in past. History of Any Multi-Drug Resistant Organisms: MRSA Date of last positivie culture/infection: 03/01/23 MDRO Source:: Abdomen Past Surgical History: Tubal Ligation Additional Past Surgical History / Comment(s): Age 7 had VSD repair Past Anesthesia/Blood Transfusion Reactions: No Reported Reaction Past Psychological History: No Psychological Hx Reported Additional Psychological History / Comment(s): She uses no assistive devices. She does not drive. She gets to appointments by walking or using the bus system. She has a glucometer at home. Smoking Status: Former smoker, Second hand smoke exposure, Vaper Past Alcohol Use History: None Reported Additional Past Alcohol Use History / Comment(s): Pt started smoking in 2000- pt states she quit smoking February or March of 2021 Past Drug Use History: None Reported - Past Family History Mother Family Medical History: No Reported History Additional Family Medical History / Comment(s): Mother was healthy. She is , pt cannot recall cause of . Father Family Medical History: Pneumonia Additional Family Medical History / Comment(s): Father at the age of 67yrs from pneumonia General Exam Limitations: no limitations General appearance: alert, in no apparent distress, anxious, in distress Head exam: Present: atraumatic, normocephalic, normal inspection Eye exam: Present: normal appearance, PERRL, EOMI. Absent: scleral icterus, conjunctival injection, periorbital swelling ENT exam: Present: normal exam, mucous membranes moist Neck exam: Present: normal inspection. Absent: tenderness, meningismus, lymphadenopathy Respiratory exam: Present: normal lung sounds bilaterally. Absent: respiratory distress, wheezes, rales, rhonchi, stridor Cardiovascular Exam: Present: regular rate, normal rhythm, normal heart sounds. Absent: systolic murmur, diastolic murmur, rubs, gallop, clicks GI/Abdominal exam: Present: soft, normal bowel sounds. Absent: distended, tenderness, guarding, rebound, rigid Extremities exam: Present: normal inspection, full ROM, normal capillary refill. Absent: tenderness, pedal edema, joint swelling, calf tenderness Back exam: Present: normal inspection Neurological exam: Present: alert, oriented X3, CN II-XII intact Psychiatric exam: Present: normal affect, normal mood Skin exam: Present: warm, dry, intact, normal color. Absent: rash Course Vital Signs 03/28/23 09:47 Temperature 98.6 F Pulse Rate 63 Respiratory 18 Rate Blood Pressure 148/80 O2 Sat by Pulse 96 Oximetry - Reevaluation(s) Reevaluation #1: 03/28/23 10:04 Medical records reviewed Reevaluation #2: 03/28/23 13:57 symptoms are unchanged here in the ER, blood sugar is improving Reevaluation #3: 03/28/23 13:57 informed of results and questions answered Reevaluation #4: 03/28/23 10:04 Was pt. sent in by a medical professional or institution (, PA, PROJECT DRILLING ENGINEER, urgent care, hospital, or shelter...) When possible be specific @ -no Did you speak to anyone other than the patient for history (EMS, parent, family, police, friend...)? What history was obtained from this source @ -no Did you review nursing and triage notes (agree or disagree)? Why? @ -agree Are old charts reviewed (outside hosp., previous admission, EMS record, old EKG, old radiological studies, urgent care reports/EKG's, shelter records)? Report findings @ -yes Differential Diagnosis (chest pain, altered mental status, abdominal pain women, abdominal pain men, vaginal bleeding, weakness, fever, dyspnea, syncope, headache, dizziness, GI bleed, back pain, seizure, CVA, palpatations, mental health, musculoskeletal)? @ -prior EKG interpreted by me (3pts min.). @ -yes X-rays interpreted by me (1pt min.). @ -yes negative for acute disease CT interpreted by me (1pt min.). @ -no U/S interpreted by me (1pt. min.). @ -no What testing was considered but not performed or refused? (CT, X-rays, U/S, labs)? Why? @ -none What meds were considered but not given or refused? Why? @ -none Did you discuss the management of the patient with other professionals (professionals i.e. , PA, PROJECT DRILLING ENGINEER, lab, RT, psych nurse, social work therapist, line fixer, teacher, human resource officer, business case analyst)? Give summary @ -no Was smoking cessation discussed for >3mins.? @ -no Was critical care preformed (if so, how long)? @ -no Were there social determinants of health that impacted care today? How? (Homelessness, low income, unemployed, alcoholism, drug addiction, transpor tation, low edu. Level, literacy, decrease access to med. care, skilled nursing, rehab)? @ -none Was there de-escalation of care discussed even if they declined (Discuss DNR or withdrawal of care, Hospice)? DNR status @ -no What co-morbidities impacted this encounter? (DM, HTN, Smoking, COPD, CAD, Cancer, CVA, ARF, Chemo, Hep., AIDS, mental health diagnosis, sleep apnea, morbid obesity)? @ -none Was patient admitted / discharged? Hospital course, mention meds given and route, prescriptions, significant lab abnormalities, going to OR and other pertinent info. @ - 52 female well-known to this emergency department stay. Patient presents today for evaluation of complaints surrounding cough not feeling well and generalized body aches and pains. Patient is found a significantly elevated blood sugar here in the emergency department, not taking medications currently at home with history of medication noncompliance, patient be admitted for control of diabetic hyperglycemia Admitted Undiagnosed new problem with uncertain prognosis? @ -no Drug Therapy requiring intensive monitoring for toxicity (Heparin, Nitro, Insulin, Cardizem)? @ -no Were any procedures done? @ -no Diagnosis/symptom? @ -Diabetes, hypoglycemia groin abscess Acute, or Chronic, or Acute on Chronic? @ -Acute Uncomplicated (without systemic symptoms) or Complicated (systemic symptoms)? @ -Complicated Side effects of treatment? @ -no Exacerbation, Progression, or Severe Exacerbation? @ -exacerbation Poses a threat to life or bodily function? How? (Chest pain, USA, CA, pneumonia, PE, COPD, DKA, ARF, appy, cholecystitis, CVA, Diverticulitis, Homicidal, Suicidal, threat to staff... and all critical care pts) @ -yes was severely elevated uncontrolled diabetes Reevaluation #5: 03/28/23 13:57 Differential Weakness: Hypoglycemia, shock, sepsis, hyponatremia, anemia, infection, CA, ETOH, adverse medicine reaction, overdose, stroke, this is not meant to be an all-inclusive list. - Consultations Consultation #1: Spoke with Dr. Cerda who agrees to admit this patient Medical Decision Making - Medical Decision Making 52 female well-known to this emergency department stay. Patient presents today for evaluation of complaints surrounding cough not feeling well and generalized body aches and pains. Patient is found a significantly elevated blood sugar here in the emergency department, not taking medications currently at home with history of medication noncompliance, patient be admitted for control of diabetic hyperglycemia - Lab Data Result diagrams: 04/02/23 05:42 03/31/23 04:39 Lab Results 03/28/23 03/28/23 03/28/23 Range/Units 10:01 10:23 10:23 WBC 10.9 H (3.8-10.6) k/uL RBC 4.50 (3.80-5.40) m/uL Hgb 12.3 (11.4-16.0) gm/dL Hct 37.0 (34.0-46.0) % MCV 82.2 (80.0-100.0) fL MCH 27.4 (25.0-35.0) pg MCHC 33.3 (31.0-37.0) g/dL RDW 16.4 H (11.5-15.5) % Plt Count 498 H (150-450) k/uL MPV 7.6 Neutrophils % 74 % Lymphocytes % 19 % Monocytes % 4 % Eosinophils % 2 % Basophils % 0 % Neutrophils # 8.0 H (1.3-7.7) k/uL Lymphocytes # 2.1 (1.0-4.8) k/uL Monocytes # 0.5 (0-1.0) k/uL Eosinophils # 0.2 (0-0.7) k/uL Basophils # 0.0 (0-0.2) k/uL Anisocytosis Slight Microcytosis Slight VBG pH (7.31-7.41) VBG pCO2 (37-51) mmHg VBG HCO3 (24-28) mmol/L Sodium (137-145) mmol/L Potassium (3.5-5.1) mmol/L Chloride (98-107) mmol/L Carbon Dioxide (22-30) mmol/L Anion Gap mmol/L BUN (7-17) mg/dL Creatinine (0.52-1.04) mg/dL Est GFR (CKD-EPI)AfAm (>60 ml/min/1.73 sqM) Est GFR (CKD-EPI)NonAf (>60 ml/min/1.73 sqM) Glucose (74-99) mg/dL POC Glucose (mg/dL) 578 H (70-110) mg/dL POC Glu Central Office Operator ID Madelyn Ruiz Calcium (8.4-10.2) mg/dL Phosphorus (2.5-4.5) mg/dL Magnesium (1.6-2.3) mg/dL Total Bilirubin (0.2-1.3) mg/dL AST (14-36) U/L ALT (4-34) U/L Alkaline Phosphatase (38-126) U/L Troponin I (0.000-0.034) ng/mL Total Protein (6.3-8.2) g/dL Albumin (3.5-5.0) g/dL Urine Color Light Yellow Urine Appearance Slightly Cloudy H (Clear) Urine pH 5.5 (5.0-8.0) Ur Specific [place] 1.025 (1.001-1.035) Urine Protein 1+ H (Negative) Urine Glucose (UA) 4+ (Negative) Urine Ketones Negative (Negative) Urine Blood Negative (Negative) Urine Nitrite Negative (Negative) Urine Bilirubin Negative (Negative) Urine Urobilinogen <2.0 (<2.0) mg/dL Ur Leukocyte Esterase Small (Negative) Urine RBC 1 (0-5) /hpf Urine WBC <1 (0-5) /hpf Ur Squamous Epith Cells 5 H (0-4) /hpf Acetone, Qual (Negative) Influenza Type A (PCR) (Not Detectd) Influenza Type B (PCR) (Not Detectd) RSV (PCR) (Not Detectd) SARS-CoV-2 (PCR) (Not Detectd) 03/28/23 03/28/23 03/28/23 Range/Units 10:23 10:23 11:28 WBC (3.8-10.6) k/uL RBC (3.80-5.40) m/uL Hgb (11.4-16.0) gm/dL Hct (34.0-46.0) % MCV (80.0-100.0) fL MCH (25.0-35.0) pg MCHC (31.0-37.0) g/dL RDW (11.5-15.5) % Plt Count (150-450) k/uL MPV Neutrophils % % Lymphocytes % % Monocytes % % Eosinophils % % Basophils % % Neutrophils # (1.3-7.7) k/uL Lymphocytes # (1.0-4.8) k/uL Monocytes # (0-1.0) k/uL Eosinophils # (0-0.7) k/uL Basophils # (0-0.2) k/uL Anisocytosis Microcytosis VBG pH (7.31-7.41) VBG pCO2 (37-51) mmHg VBG HCO3 (24-28) mmol/L Sodium 131 L (137-145) mmol/L Potassium 4.3 (3.5-5.1) mmol/L Chloride 100 (98-107) mmol/L Carbon Dioxide 19 L (22-30) mmol/L Anion Gap 12 mmol/L BUN 10 (7-17) mg/dL Creatinine 0.65 (0.52-1.04) mg/dL Est GFR (CKD-EPI)AfAm >90 (>60 ml/min/1.73 sqM) Est GFR (CKD-EPI)NonAf >90 (>60 ml/min/1.73 sqM) Glucose 547 H* (74-99) mg/dL POC Glucose (mg/dL) 508 H (70-110) mg/dL POC Glu Central Office Operator ID Shalini Harman Calcium 8.6 (8.4-10.2) mg/dL Phosphorus 4.7 H (2.5-4.5) mg/dL Magnesium 1.3 L (1.6-2.3) mg/dL Total Bilirubin 0.4 (0.2-1.3) mg/dL AST 22 (14-36) U/L ALT 19 (4-34) U/L Alkaline Phosphatase 169 H (38-126) U/L Troponin I <0.012 (0.000-0.034) ng/mL Total Protein 6.2 L (6.3-8.2) g/dL Albumin 3.3 L (3.5-5.0) g/dL Urine Color Urine Appearance (Clear) Urine pH (5.0-8.0) Ur Specific [place] (1.001-1.035) Urine Protein (Negative) Urine Glucose (UA) (Negative) Urine Ketones (Negative) Urine Blood (Negative) Urine Nitrite (Negative) Urine Bilirubin (Negative) Urine Urobilinogen (<2.0) mg/dL Ur Leukocyte Esterase (Negative) Urine RBC (0-5) /hpf Urine WBC (0-5) /hpf Ur Squamous Epith Cells (0-4) /hpf Acetone, Qual Negative (Negative) Influenza Type A (PCR) (Not Detectd) Influenza Type B (PCR) (Not Detectd) RSV (PCR) (Not Detectd) SARS-CoV-2 (PCR) (Not Detectd) 03/28/23 03/28/23 03/28/23 Range/Units 11:31 12:54 12:54 WBC (3.8-10.6) k/uL RBC (3.80-5.40) m/uL Hgb (11.4-16.0) gm/dL Hct (34.0-46.0) % MCV (80.0-100.0) fL MCH (25.0-35.0) pg MCHC (31.0-37.0) g/dL RDW (11.5-15.5) % Plt Count (150-450) k/uL MPV Neutrophils % % Lymphocytes % % Monocytes % % Eosinophils % % Basophils % % Neutrophils # (1.3-7.7) k/uL Lymphocytes # (1.0-4.8) k/uL Monocytes # (0-1.0) k/uL Eosinophils # (0-0.7) k/uL Basophils # (0-0.2) k/uL Anisocytosis Microcytosis VBG pH 7.47 H (7.31-7.41) VBG pCO2 27 L (37-51) mmHg VBG HCO3 20 L (24-28) mmol/L Sodium (137-145) mmol/L Potassium (3.5-5.1) mmol/L Chloride (98-107) mmol/L Carbon Dioxide (22-30) mmol/L Anion Gap mmol/L BUN (7-17) mg/dL Creatinine (0.52-1.04) mg/dL Est GFR (CKD-EPI)AfAm (>60 ml/min/1.73 sqM) Est GFR (CKD-EPI)NonAf (>60 ml/min/1.73 sqM) Glucose (74-99) mg/dL POC Glucose (mg/dL) 527 H (70-110) mg/dL POC Glu Central Office Operator ID Shalini Harman Calcium (8.4-10.2) mg/dL Phosphorus (2.5-4.5) mg/dL Magnesium (1.6-2.3) mg/dL Total Bilirubin (0.2-1.3) mg/dL AST (14-36) U/L ALT (4-34) U/L Alkaline Phosphatase (38-126) U/L Troponin I (0.000-0.034) ng/mL Total Protein (6.3-8.2) g/dL Albumin (3.5-5.0) g/dL Urine Color Urine Appearance (Clear) Urine pH (5.0-8.0) Ur Specific [place] (1.001-1.035) Urine Protein (Negative) Urine Glucose (UA) (Negative) Urine Ketones (Negative) Urine Blood (Negative) Urine Nitrite (Negative) Urine Bilirubin (Negative) Urine Urobilinogen (<2.0) mg/dL Ur Leukocyte Esterase (Negative) Urine RBC (0-5) /hpf Urine WBC (0-5) /hpf Ur Squamous Epith Cells (0-4) /hpf Acetone, Qual (Negative) Influenza Type A (PCR) Not Detected (Not Detectd) Influenza Type B (PCR) Not Detected (Not Detectd) RSV (PCR) Not Detected (Not Detectd) SARS-CoV-2 (PCR) Not Detected (Not Detectd) - Radiology Data Radiology results: report reviewed (Chest x-rays negative for acute disease), image reviewed Disposition Clinical Impression: Nausea & vomiting, Hyponatremia, Dyspnea, Hyperglycemia, Abscess of right groin, Dehydration Disposition: ADMITTED IP TO THIS HOSP Condition: Fair Is patient prescribed a controlled substance at d/c from ED?: No Time of Disposition: 13:45
[2023-03-28 10:35] LABS: Anisocytosis Slight; Basophils % (A) 0 %; Eosinophils # (A) 0.2 k/uL (0-0.7); Eosinophils % (A) 2 %; HGB 12.3 gm/dL (11.4-16.0); Lymphocytes # (A) 2.1 k/uL (1.0-4.8); Lymphocytes % (A) 19 %; MCH 27.4 pg (25.0-35.0); MCHC 33.3 g/dL (31.0-37.0); MCV 82.2 fL (80.0-100.0); Mean Platelet Volume 7.6; Microcytosis Slight; Monocytes # (A) 0.5 k/uL (0-1.0); Monocytes % (A) 4 %; Neutrophils % (A) 74 %; Platelet Count 498 k/uL (150-450); RDW 16.4 % (11.5-15.5); WBC 10.9 k/uL (3.8-10.6)
[2023-03-28 10:52] LABS: ALT 19 U/L (4-34); AST 22 U/L (14-36); African American GFR (CKD) >90 (>60 ml/min/1.73 sqM); Albumin 3.3 g/dL (3.5-5.0); Alkaline Phosphatase 169 U/L (38-126); Anion Gap 12 mmol/L; Blood Urea Nitrogen 10 mg/dL (7-17); Calcium 8.6 mg/dL (8.4-10.2); Carbon Dioxide 19 mmol/L (22-30); Chloride 100 mmol/L (98-107); Magnesium 1.3 mg/dL (1.6-2.3); Non-African American GFR(CKD) >90 (>60 ml/min/1.73 sqM); Phosphorus 4.7 mg/dL (2.5-4.5); Potassium 4.3 mmol/L (3.5-5.1); Sodium 131 mmol/L (137-145); Total Bilirubin 0.4 mg/dL (0.2-1.3); Total Protein 6.2 g/dL (6.3-8.2)
[2023-03-28 10:57] LABS: Glucose 547 mg/dL (74-99)
[2023-03-28 11:25] LABS: Appearance,Urine Slightly Cloudy (Clear); Bilirubin,Urine Negative (Negative); Color,Urine Light Yellow; Glucose,Urine (UA) 4+ (Negative); Ketones,Urine Negative (Negative); PH, Urine 5.5 (5.0-8.0); Protein,Urine 1+ (Negative); Specific Gravity,Urine 1.025 (1.001-1.035)
[2023-03-28 11:26] LABS: Blood,Urine Negative (Negative); Leukocyte Esterase,Urine Small (Negative); Nitrite,Urine Negative (Negative); Urobilinogen,Urine <2.0 mg/dL (<2.0)
[2023-03-28 11:28] LABS: RBC,Urine 1 /hpf (0-5); Squamous Epithelial Cell,Urine 5 /hpf (0-4); WBC,Urine <1 /hpf (0-5)
[2023-03-28 11:33] LABS: Glucose,Whole Blood 508 mg/dL (70-110)
[2023-03-28 11:33] LABS: Glucose,Whole Blood 527 mg/dL (70-110)
--- NOTE | 2023-03-28 13:26 | XR ---
EXAMINATION TYPE: XR chest 1V DATE OF EXAM: 03/28/2023 COMPARISON: 03/02/2023. HISTORY: Cough. TECHNIQUE: Single frontal view of the chest is obtained. FINDINGS: There is no focal air space opacity, pleural effusion, or pneumothorax seen. The cardiac silhouette size is within normal limits. The osseous structures are intact. IMPRESSION: No acute process.
[2023-03-28 13:33] LABS: VBG PH 7.47 (7.31-7.41)
[2023-03-28] MEDS ORDERED: HYDROmorphone 1 MG/ML 1 ML SYRINGE IVP STA (13:37)
[2023-03-28] MEDS ORDERED: DEXTROSE 50% SYRINGE 50 ML IVP PRN ×2 (13:53)
[2023-03-28] MEDS ORDERED: NALOXONE 0.4 MG/ML 1 ML VIAL IV PRN (13:53)
[2023-03-28] MEDS: SODIUM CHLORIDE 0.9% 1,000 ML IV SCH ×2 (14:00→20:36)
[2023-03-28 14:24] LABS: Glucose,Whole Blood 451 mg/dL (70-110)
[2023-03-28 17:21] LABS: Glucose,Whole Blood 356 mg/dL (70-110)
[2023-03-28] MEDS ORDERED: INSULIN ASPART (NovoLOG) 100 UNIT/ML VIAL SQ SCH (17:30)
[2023-03-28] MEDS: HYDROmorphone 1 MG/ML 1 ML SYRINGE IVP PRN ×2 (18:17→21:08)
[2023-03-28] MEDS: ONDANSETRON 4 MG/2 ML VIAL IVP PRN (18:17)
[2023-03-28] MEDS ORDERED: traZODone HCL 50 MG TAB PO PRN (19:02)
[2023-03-28] MEDS: ALBUTEROL NEBULIZED 2.5 MG/3 ML INHALATION SCH (20:01)
[2023-03-28 20:28] LABS: Glucose,Whole Blood 241 mg/dL (70-110)
[2023-03-28] MEDS: hydrALAZINE HCL 25 MG TAB PO SCH (20:35)
[2023-03-28] MEDS: ATORVASTATIN 80 MG TAB PO SCH (20:35)
[2023-03-28] MEDS: INSULIN ASPART (NovoLOG) 100 UNIT/ML VIAL SQ SCH (20:36)
--- NOTE | 2023-03-28 21:50 | MISC ---
MISCELLANOUS REPORT Cellulitis, not diabetic skin complication. MMODL / IJN: [id number] /
[2023-03-29] MEDS: HYDROmorphone 1 MG/ML 1 ML SYRINGE IVP PRN ×7 (01:31→23:06)
[2023-03-29] MEDS: SODIUM CHLORIDE 0.9% 1,000 ML IV SCH ×3 (06:15→19:34)
[2023-03-29 06:20] LABS: Glucose,Whole Blood 233 mg/dL (70-110)
[2023-03-29] MEDS: INSULIN ASPART (NovoLOG) 100 UNIT/ML VIAL SQ SCH ×7 (06:29→19:38)
[2023-03-29] MEDS ORDERED: INSULIN DETEMIR (LEVEMIR) 100 UNIT/ML SYR SQ SCH (07:00)
[2023-03-29] MEDS: ALBUTEROL NEBULIZED 2.5 MG/3 ML INHALATION SCH ×4 (08:10→20:51)
[2023-03-29 08:25] LABS: Basophils # (A) 0.05 X 10*3/uL (0.00-0.10); Basophils % (A) 0.5 %; Eosinophils # (A) 0.28 X 10*3/uL (0.04-0.35); Eosinophils % (A) 2.6 %; HCT 36.3 % (37.2-46.3); HGB 11.8 g/dL (12.0-15.0); Lymphocytes # (A) 3.14 X 10*3/uL (0.90-5.00); MCHC 32.5 g/dL (32.0-37.0); MCV 80.1 FL (80.0-97.0); Mean Platelet Volume 8.9 FL (9.5-12.2); Monocytes # (A) 0.67 X 10*3/uL (0.20-1.00); Monocytes % (A) 6.2 %; NRBC Per 100 WBC 0 X 10*3/uL (0.00-0.01); Neutrophils # (A) 6.64 X 10*3/uL (1.80-7.70); Neutrophils % (A) 61.3 %; Platelet Count 416 X 10*3/uL (140-440); RBC 4.53 X 10*6/uL (4.10-5.20); WBC 10.82 X 10*3/uL (4.50-10.00)
[2023-03-29 08:57] LABS: Blood Urea Nitrogen 6.7 mg/dL (9.0-27.0); Glucose 240 mg/dL (70-110)
[2023-03-29 08:58] LABS: ALT 14 U/L (8-44); AST 12 U/L (13-35); Albumin/Globulin Ratio 1.25 Ratio (1.60-3.17); Alkaline Phosphatase 132 U/L (41-126); Calcium 8.2 mg/dL (8.7-10.3); Carbon Dioxide 21.8 mmol/L (21.6-31.8); Chloride 105 mmol/L (96-109); Globulin 2.4 g/dL (1.6-3.3); Magnesium 1.4 mg/dL (1.5-2.4); Phosphorus 3.7 mg/dL (2.4-5.1); Potassium 3.9 mmol/L (3.5-5.5); Sodium 140 mmol/L (135-145); Total Bilirubin 0.3 mg/dL (0.3-1.2); Total Protein 5.4 g/dL (6.2-8.2)
[2023-03-29] MEDS ORDERED: NON FORMULARY DRUG (Esomeprazole Magnesium [Nexium] 20 MG Capsule.Dr) PO SCH (09:00)
[2023-03-29] MEDS: PANTOPRAZOLE 40 MG/10 ML VIAL IV SCH (09:39)
[2023-03-29] MEDS: amLODIPine 10 MG TAB PO SCH (09:39)
[2023-03-29] MEDS: lisinopriL 20 MG TAB PO SCH (09:39)
[2023-03-29] MEDS: hydrALAZINE HCL 25 MG TAB PO SCH ×2 (09:39→19:34)
[2023-03-29] MEDS: metFORMIN 500 MG TAB PO SCH (09:39)
[2023-03-29 12:14] LABS: Glucose,Whole Blood 218 mg/dL (70-110)
--- NOTE | 2023-03-29 14:56 | P.GSCN ---
History of Present Illness Consult date: 03/29/23 History of present illness: CHIEF COMPLAINT: Hyperglycemia Reason for consult: Right groin abscess HISTORY OF PRESENT ILLNESS: This is a 52-year-old female who has been having elevated blood sugars at home. Hemoglobin A1c is 15. Blood sugar as high as 500. She also was found to have a abscess in the right lower abdomen. Surgical service consulted for the abscess. Her abscess is draining. She complains of pain and tenderness in the area. Denies any fever chills or sweats. She has had prior abscesses that did need to be drained in the ER. 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 Patient reports that this abscess has been present for about 2 days and had been draining some purulent bloody material at home. Afebrile. PAST MEDICAL HISTORY: See below PAST SURGICAL HISTORY: See below MEDICATIONS: See below ALLERGIES: See below SOCIAL HISTORY: No illicit drug use. REVIEW OF SYSTEMS: CONSTITUTIONAL: Denies fever or chills. HEENT: Denies blurred vision, vision changes, or eye pain. Denies hemoptysis CARDIOVASCULAR: Denies chest pain or pressure. RESPIRATORY: No shortness of breath. GASTROINTESTINAL: See HPI for pertinent findings HEMATOLOGIC: Denies bleeding disorders. GENITOURINARY: Denies any blood in urine or increased urinary frequency. SKIN: Denies pruitis. Denies rash. PHYSICAL EXAM: VITAL SIGNS: Reviewed GENERAL: Well-developed in no acute distress. HEENT: No sclera icterus. Extraocular movements grossly intact. Moist buccal mucosa. Head is atraumatic, normocephalic. No nasal drainage. ABDOMEN: Soft. Obese. Nondistended. Right lower abdomen 2 areas of abscess with induration and tenderness with palpation. There is purulent drainage noted from the most distal abscess. The upper abscess is scabbed over with small blackened area. NEUROLOGIC: Alert and oriented. Cranial nerves II through XII grossly intact. LABORATORY DATA: WBC 10.8 to Hgb 11.8 platelets 416 Sodium 140 potassium 3.9 creatinine 0.5 Glucose 540 down to 240 Hemoglobin A1c 15 Total bilirubin 0.3 AST 12 ALT 14 alk phos 132 IMAGING: ASSESSMENT: 1. Right lower abdominal abscess 2. 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 Signing provider agrees with the documented findings, assessment, and plan of care. Past Medical History Past Medical History: Diabetes Mellitus, GERD/Reflux, Hyperlipidemia, Hypertension, Syncope Additional Past Medical History / Comment(s): Pt recently admitted to [facility] on 07/21/21 with uncontrolled IDDM and hyperkalemia. Other hx: Recurrent pancreatitis, hypertriglyceridemia, elevated lipase, IDDM type II, UTI, chronic low back pain, bulging discs, dental abscesses in past. History of Any Multi-Drug Resistant Organisms: MRSA Year Discovered:: 03/01/23 MDRO Source:: Abdomen Past Surgical History: Tubal Ligation Additional Past Surgical History / Comment(s): Age 7 had VSD repair Past Anesthesia/Blood Transfusion Reactions: No Reported Reaction Past Psychological History: No Psychological Hx Reported Additional Psychological History / Comment(s): She uses no assistive devices. She does not drive. She gets to appointments by walking or using the bus system. She has a glucometer at home. Smoking Status: Former smoker, Second hand smoke exposure, Vaper Past Alcohol Use History: None Reported Additional Past Alcohol Use History / Comment(s): Pt started smoking in 2000- pt states she quit smoking February or March of 2021 Past Drug Use History: None Reported - Past Family History Mother Family Medical History: No Reported History Additional Family Medical History / Comment(s): Mother was healthy. She is , pt cannot recall cause of . Father Family Medical History: Pneumonia Additional Family Medical History / Comment(s): Father at the age of 67yrs from pneumonia Medications and Allergies Home Medications Medication Instructions Recorded Confirmed Type Atorvastatin [Lipitor] 80 mg PO HS 06/25/19 03/28/23 History lisinopriL 40 mg PO DAILY 09/24/20 03/28/23 History metFORMIN HCL [Glucophage] 500 mg PO DAILY 09/24/20 03/28/23 History traZODone HCL 50 mg PO HS PRN 01/11/21 03/28/23 History Ergocalciferol (Vitamin D2) 1,250 mcg PO TU 03/03/21 03/28/23 History [Drisdol (50,000 Iu)] Esomeprazole Magnesium [NexIUM] 20 mg PO DAILY 01/30/22 03/28/23 History INSULIN ASPART (NovoLOG) [NovoLOG 20 unit SQ AC-TID 11/26/22 03/28/23 History (formulary)] Insulin Detemir (Levemir) [Levemir] 90 unit SQ DAILY 11/26/22 03/28/23 History Albuterol Inhaler [Ventolin Hfa 2 puff INHALATION RT-QID 03/01/23 03/28/23 History Inhaler] amLODIPine [Norvasc] 10 mg PO DAILY #30 tab 03/11/23 03/28/23 Rx hydrALAZINE HCL [Apresoline] 25 mg PO BID #60 tab 03/11/23 03/28/23 Rx Allergies Allergy/AdvReac Type Severity Reaction Status Date / Time levofloxacin [From Levaquin] Allergy Rash/Hives Verified 03/28/23 12:42 Surgical - Exam Vital Signs Temp Pulse Resp BP Pulse Ox 98.6 F 63 18 148/80 96 03/28/23 09:47 03/28/23 09:47 03/28/23 09:47 03/28/23 09:47 03/28/23 09:47 Results - Labs 03/29/23 06:04 03/29/23 06:04 Abnormal Lab Results - Last 24 Hours (Table) 03/28/23 03/28/23 03/29/23 Range/Units 17:19 20:27 06:04 WBC (4.50-10.00) X 10*3/uL Hgb (12.0-15.0) g/dL Hct (37.2-46.3) % MCH (27.0-32.0) pg RDW (11.5-14.5) % MPV (9.5-12.2) FL Anion Gap (4.00-12.00) mmol/L BUN (9.0-27.0) mg/dL Creatinine (0.6-1.5) mg/dL Glucose (70-110) mg/dL POC Glucose (mg/dL) 356 H 241 H (70-110) mg/dL Hemoglobin A1c 15.0 H (<=6.0) % Calcium (8.7-10.3) mg/dL Magnesium (1.5-2.4) mg/dL AST (13-35) U/L Alkaline Phosphatase (41-126) U/L Total Protein (6.2-8.2) g/dL Albumin (3.8-4.9) g/dL Albumin/Globulin Ratio (1.60-3.17) Ratio 03/29/23 03/29/23 03/29/23 Range/Units 06:04 06:04 06:18 WBC 10.82 H (4.50-10.00) X 10*3/uL Hgb 11.8 L (12.0-15.0) g/dL Hct 36.3 L (37.2-46.3) % MCH 26.0 L (27.0-32.0) pg RDW 16.0 H (11.5-14.5) % MPV 8.9 L (9.5-12.2) FL Anion Gap 13.20 H (4.00-12.00) mmol/L BUN 6.7 L (9.0-27.0) mg/dL Creatinine 0.5 L (0.6-1.5) mg/dL Glucose 240 H (70-110) mg/dL POC Glucose (mg/dL) 233 H (70-110) mg/dL Hemoglobin A1c (<=6.0) % Calcium 8.2 L (8.7-10.3) mg/dL Magnesium 1.4 L (1.5-2.4) mg/dL AST 12 L (13-35) U/L Alkaline Phosphatase 132 H (41-126) U/L Total Protein 5.4 L (6.2-8.2) g/dL Albumin 3.0 L (3.8-4.9) g/dL Albumin/Globulin Ratio 1.25 L (1.60-3.17) Ratio 03/29/23 Range/Units 12:11 WBC (4.50-10.00) X 10*3/uL Hgb (12.0-15.0) g/dL Hct (37.2-46.3) % MCH (27.0-32.0) pg RDW (11.5-14.5) % MPV (9.5-12.2) FL Anion Gap (4.00-12.00) mmol/L BUN (9.0-27.0) mg/dL Creatinine (0.6-1.5) mg/dL Glucose (70-110) mg/dL POC Glucose (mg/dL) 218 H (70-110) mg/dL Hemoglobin A1c (<=6.0) % Calcium (8.7-10.3) mg/dL Magnesium (1.5-2.4) mg/dL AST (13-35) U/L Alkaline Phosphatase (41-126) U/L Total Protein (6.2-8.2) g/dL Albumin (3.8-4.9) g/dL Albumin/Globulin Ratio (1.60-3.17) Ratio Diabetes panel 03/29/23 03/29/23 Range/Units 06:04 06:04 Sodium 140 (135-145) mmol/L Potassium 3.9 (3.5-5.5) mmol/L Chloride 105 (96-109) mmol/L Carbon Dioxide 21.8 (21.6-31.8) mmol/L BUN 6.7 L (9.0-27.0) mg/dL Creatinine 0.5 L (0.6-1.5) mg/dL Glucose 240 H (70-110) mg/dL Hemoglobin A1c 15.0 H (<=6.0) % Calcium 8.2 L (8.7-10.3) mg/dL AST 12 L (13-35) U/L ALT 14 (8-44) U/L Alkaline Phosphatase 132 H (41-126) U/L Total Protein 5.4 L (6.2-8.2) g/dL Albumin 3.0 L (3.8-4.9) g/dL Calcium panel 03/29/23 Range/Units 06:04 Calcium 8.2 L (8.7-10.3) mg/dL Phosphorus 3.7 (2.4-5.1) mg/dL Albumin 3.0 L (3.8-4.9) g/dL Pituitary panel 03/29/23 Range/Units 06:04 Sodium 140 (135-145) mmol/L Potassium 3.9 (3.5-5.5) mmol/L Chloride 105 (96-109) mmol/L Carbon Dioxide 21.8 (21.6-31.8) mmol/L BUN 6.7 L (9.0-27.0) mg/dL Creatinine 0.5 L (0.6-1.5) mg/dL Glucose 240 H (70-110) mg/dL Calcium 8.2 L (8.7-10.3) mg/dL Adrenal panel 03/29/23 Range/Units 06:04 Sodium 140 (135-145) mmol/L Potassium 3.9 (3.5-5.5) mmol/L Chloride 105 (96-109) mmol/L Carbon Dioxide 21.8 (21.6-31.8) mmol/L BUN 6.7 L (9.0-27.0) mg/dL Creatinine 0.5 L (0.6-1.5) mg/dL Glucose 240 H (70-110) mg/dL Calcium 8.2 L (8.7-10.3) mg/dL Total Bilirubin 0.3 (0.3-1.2) mg/dL AST 12 L (13-35) U/L ALT 14 (8-44) U/L Alkaline Phosphatase 132 H (41-126) U/L Total Protein 5.4 L (6.2-8.2) g/dL Albumin 3.0 L (3.8-4.9) g/dL
[2023-03-29] MEDS ORDERED: VANCOMYCIN IV PER PHARMACY 1 EACH MISC MISCELLANE PRN (15:38)
[2023-03-29 15:43] LABS: Chol/HDL Ratio 8.93 Ratio; HDL Cholesterol 24.3 mg/dL (40.00-60.00)
[2023-03-29 15:53] LABS: LDL Cholesterol,Direct Reflex 69.7 mg/dL (0.00-129.00)
[2023-03-29] MEDS ORDERED: VANCOMYCIN 1,750 MG in SODIUM CHLORIDE 0.9% 500 ML 500 ML IVPB ONE (16:15)
[2023-03-29 17:06] LABS: Glucose,Whole Blood 152 mg/dL (70-110)
[2023-03-29] MEDS: ATORVASTATIN 80 MG TAB PO SCH (19:34)
[2023-03-29 19:35] LABS: Glucose,Whole Blood 199 mg/dL (70-110)
--- NOTE | 2023-03-29 22:33 | P.CONS ---
History of Present Illness - Reason for Consult Consult date: 03/29/23 Abdominal skin abscess Requesting physician: Leah Latham - Chief Complaint Pain and swelling to the right lower abdominal groin x few days - History of Present Illness Patient is a 52-year-old female with a past medical history clinical diabetes mellitus hypertension hyperlipidemia reflux history of recurrent skin and soft tissue infection patient presenting to the hospital however the patient was noticed to have elevated blood sugar which has been running in the 500 patient also noticed to have a swelling redness and some drainage to the right lower abdominal/mons pubis area concerning for abscess and cellulitis for the patient was evaluated by general surgery and they recommended infectious disease evaluation for antibiotic therapy. Patient denies having any fever or any chills patient mention having problem with the swelling redness to the right lower abdominal/mons pubis area that has been going on for last few days. Denies any history of any trauma has been complaining of pain represcribing to be sharp moderate intensity without any radiation did have mild drainage no foul-smelling culture has been obtained by the nursing staff Review of Systems Positive point and negatives has been mentioned in the HPI, complete review of systems was performed and all other systems are negative Past Medical History Past Medical History: Diabetes Mellitus, GERD/Reflux, Hyperlipidemia, Hypertension, Syncope Additional Past Medical History / Comment(s): Pt recently admitted to [facility] on 07/21/21 with uncontrolled IDDM and hyperkalemia. Other hx: Recurrent pancreatitis, hypertriglyceridemia, elevated lipase, IDDM type II, UTI, chronic low back pain, bulging discs, dental abscesses in past. History of Any Multi-Drug Resistant Organisms: MRSA Year Discovered:: 03/01/23 MDRO Source:: Abdomen Past Surgical History: Tubal Ligation Additional Past Surgical History / Comment(s): Age 7 had VSD repair Past Anesthesia/Blood Transfusion Reactions: No Reported Reaction Past Psychological History: No Psychological Hx Reported Additional Psychological History / Comment(s): She uses no assistive devices. She does not drive. She gets to appointments by walking or using the bus system. She has a glucometer at home. Smoking Status: Former smoker, Second hand smoke exposure, Vaper Past Alcohol Use History: None Reported Additional Past Alcohol Use History / Comment(s): Pt started smoking in 2000- pt states she quit smoking February or March of 2021 Past Drug Use History: None Reported - Past Family History Mother Family Medical History: No Reported History Additional Family Medical History / Comment(s): Mother was healthy. She is , pt cannot recall cause of . Father Family Medical History: Pneumonia Additional Family Medical History / Comment(s): Father at the age of 67yrs from pneumonia Medications and Allergies Home Medications Medication Instructions Recorded Confirmed Type Atorvastatin [Lipitor] 80 mg PO HS 06/25/19 03/28/23 History lisinopriL 40 mg PO DAILY 09/24/20 03/28/23 History traZODone HCL 50 mg PO HS PRN 01/11/21 03/28/23 History Ergocalciferol (Vitamin D2) 1,250 mcg PO TU 03/03/21 03/28/23 History [Drisdol (50,000 Iu)] Esomeprazole Magnesium [NexIUM] 20 mg PO DAILY 01/30/22 03/28/23 History INSULIN ASPART (NovoLOG) [NovoLOG 20 unit SQ AC-TID 11/26/22 03/28/23 History (formulary)] Insulin Detemir (Levemir) [Levemir] 90 unit SQ DAILY 11/26/22 03/28/23 History Albuterol Inhaler [Ventolin Hfa 2 puff INHALATION RT-QID 03/01/23 03/28/23 History Inhaler] amLODIPine [Norvasc] 10 mg PO DAILY #30 tab 03/11/23 03/28/23 Rx hydrALAZINE HCL [Apresoline] 25 mg PO BID #60 tab 03/11/23 03/28/23 Rx Amoxic-Pot Clav 875-125Mg 1 each PO Q12HR #20 tab 04/04/23 Rx [Augmentin 875-125] Allergies Allergy/AdvReac Type Severity Reaction Status Date / Time levofloxacin [From Levaquin] Allergy Rash/Hives Verified 03/28/23 12:42 Physical Exam Vitals: Vital Signs Temp Pulse Pulse Resp BP Pulse Ox FiO2 03/29/23 14:36 98.0 F 62 16 116/54 95 03/29/23 08:22 56 L 03/29/23 08:10 54 L 96 21 03/29/23 07:00 98.6 F 52 L 16 135/65 97 03/29/23 01:25 98.2 F 69 16 125/65 96 03/28/23 19:51 98.3 F 62 16 121/66 95 03/28/23 18:22 98.3 F 66 16 161/83 95 Intake and Output 03/29/23 03/29/23 03/29/23 06:59 14:59 22:59 Intake Total 618 Balance 618 Intake: Oral 618 Other: Voiding Method Toilet # Voids 1 3 GENERAL DESCRIPTION: Middle-aged female lying in bed, no distress. No tachypnea or accessory muscle of respiration use. HEENT: Shows Pallor , no scleral icterus. Oral mucous membrane is dry. No pharyngeal erythema or thrush NECK: Trachea central, no thyromegaly. LUNGS: Unlabored breathing. Clear to auscultation anteriorly. No wheeze or crackle. HEART: S1, S2, regular rate and rhythm. No loud murmur ABDOMEN: Soft, no tenderness , right lower abdominal groin he did have area of induration swelling redness and tenderness minimal drainage EXTREMITIES: No edema of feet. SKIN: No rash, no masses palpable. NEUROLOGICAL: The patient is awake, alert, oriented x3, mood and affect normal. Results CBC & Chem 7: 04/02/23 05:42 03/31/23 04:39 Labs: Abnormal Lab Results - Last 24 Hours (Table) 03/28/23 03/28/23 03/29/23 Range/Units 17:19 20:27 06:04 WBC (4.50-10.00) X 10*3/uL Hgb (12.0-15.0) g/dL Hct (37.2-46.3) % MCH (27.0-32.0) pg RDW (11.5-14.5) % MPV (9.5-12.2) FL Anion Gap (4.00-12.00) mmol/L BUN (9.0-27.0) mg/dL Creatinine (0.6-1.5) mg/dL Glucose (70-110) mg/dL POC Glucose (mg/dL) 356 H 241 H (70-110) mg/dL Hemoglobin A1c 15.0 H (<=6.0) % Calcium (8.7-10.3) mg/dL Magnesium (1.5-2.4) mg/dL AST (13-35) U/L Alkaline Phosphatase (41-126) U/L Total Protein (6.2-8.2) g/dL Albumin (3.8-4.9) g/dL Albumin/Globulin Ratio (1.60-3.17) Ratio 03/29/23 03/29/23 03/29/23 Range/Units 06:04 06:04 06:18 WBC 10.82 H (4.50-10.00) X 10*3/uL Hgb 11.8 L (12.0-15.0) g/dL Hct 36.3 L (37.2-46.3) % MCH 26.0 L (27.0-32.0) pg RDW 16.0 H (11.5-14.5) % MPV 8.9 L (9.5-12.2) FL Anion Gap 13.20 H (4.00-12.00) mmol/L BUN 6.7 L (9.0-27.0) mg/dL Creatinine 0.5 L (0.6-1.5) mg/dL Glucose 240 H (70-110) mg/dL POC Glucose (mg/dL) 233 H (70-110) mg/dL Hemoglobin A1c (<=6.0) % Calcium 8.2 L (8.7-10.3) mg/dL Magnesium 1.4 L (1.5-2.4) mg/dL AST 12 L (13-35) U/L Alkaline Phosphatase 132 H (41-126) U/L Total Protein 5.4 L (6.2-8.2) g/dL Albumin 3.0 L (3.8-4.9) g/dL Albumin/Globulin Ratio 1.25 L (1.60-3.17) Ratio 03/29/23 Range/Units 12:11 WBC (4.50-10.00) X 10*3/uL Hgb (12.0-15.0) g/dL Hct (37.2-46.3) % MCH (27.0-32.0) pg RDW (11.5-14.5) % MPV (9.5-12.2) FL Anion Gap (4.00-12.00) mmol/L BUN (9.0-27.0) mg/dL Creatinine (0.6-1.5) mg/dL Glucose (70-110) mg/dL POC Glucose (mg/dL) 218 H (70-110) mg/dL Hemoglobin A1c (<=6.0) % Calcium (8.7-10.3) mg/dL Magnesium (1.5-2.4) mg/dL AST (13-35) U/L Alkaline Phosphatase (41-126) U/L Total Protein (6.2-8.2) g/dL Albumin (3.8-4.9) g/dL Albumin/Globulin Ratio (1.60-3.17) Ratio Assessment and Plan (1) Abscess of groin, right Status: Acute Code(s): L02.214 - CUTANEOUS ABSCESS OF GROIN SNOMED Code(s): 01309768 Plan: 1-patient with area of swelling and redness to the lower abdominal area with some purulent drainage likely related to MRSA skin soft tissue infection as the patient had brief history of MRSA infection 2-we will start the patient on vancomycin pharmacy to dose while watching her kidney function closely 3-will benefit from surgical drainage and deep culture We will follow on clinical condition and cultures to further adjust medication if needed Thank you for this consultation we will follow the patient along with you Dictation was produced using [employer] dictation software. please excuse any grammatical, word or spelling errors. Time with Patient: Greater than 30
[2023-03-30] MEDS: SODIUM CHLORIDE 0.9% 1,000 ML IV SCH ×3 (01:30→18:14)
[2023-03-30] MEDS: HYDROmorphone 1 MG/ML 1 ML SYRINGE IVP PRN ×5 (03:10→21:46)
[2023-03-30] MEDS: VANCOMYCIN 1,750 MG in SODIUM CHLORIDE 0.9% 500 ML 500 ML IVPB SCH ×2 (04:34→18:06)
[2023-03-30 06:07] LABS: Glucose,Whole Blood 259 mg/dL (70-110)
[2023-03-30] MEDS: INSULIN ASPART (NovoLOG) 100 UNIT/ML VIAL SQ SCH ×7 (06:19→20:47)
[2023-03-30 08:45] LABS: Glucose,Whole Blood 309 mg/dL (70-110)
[2023-03-30 08:52] LABS: African American GFR (CKD) >90 (>60 ml/min/1.73 sqM); Anion Gap 10 mmol/L; Blood Urea Nitrogen 9 mg/dL (7-17); Calcium 8.4 mg/dL (8.4-10.2); Carbon Dioxide 22 mmol/L (22-30); Chloride 106 mmol/L (98-107); Glucose 234 mg/dL (74-99); Non-African American GFR(CKD) >90 (>60 ml/min/1.73 sqM); Potassium 4.1 mmol/L (3.5-5.1); Sodium 138 mmol/L (137-145)
[2023-03-30] MEDS: PANTOPRAZOLE 40 MG/10 ML VIAL IV SCH (08:54)
[2023-03-30] MEDS: metFORMIN 500 MG TAB PO SCH (08:54)
[2023-03-30] MEDS: INSULIN DETEMIR (LEVEMIR) 100 UNIT/ML SYR SQ SCH (08:54)
[2023-03-30] MEDS: amLODIPine 10 MG TAB PO SCH (08:54)
[2023-03-30] MEDS: hydrALAZINE HCL 25 MG TAB PO SCH ×2 (08:54→20:47)
[2023-03-30] MEDS: lisinopriL 20 MG TAB PO SCH (08:55)
[2023-03-30] MEDS: ALBUTEROL NEBULIZED 2.5 MG/3 ML INHALATION SCH ×4 (09:04→20:35)
[2023-03-30 11:54] LABS: Glucose,Whole Blood 238 mg/dL (70-110)
--- NOTE | 2023-03-30 12:17 | P.PN ---
Progress Note - Text CHIEF COMPLAINT: Hyperglycemia Reason for consult: Right groin abscess HISTORY OF PRESENT ILLNESS: This is a 52-year-old female who has been having elevated blood sugars at home. Hemoglobin A1c is 15. Blood sugar as high as 500. She also was found to have a abscess in the right lower abdomen. Surgical service consulted for the abscess. Her abscess is draining. She complains of pain and tenderness in the area. Denies any fever chills or sweats. She has had prior abscesses that did need to be drained in the ER. She does have a history of MRSA and diabetes. Patient reports that this abscess has been present for about 2 days and had been draining some purulent bloody material at home. Afebrile. PAST MEDICAL HISTORY: See below PAST SURGICAL HISTORY: See below MEDICATIONS: See below ALLERGIES: See below SOCIAL HISTORY: No illicit drug use. REVIEW OF SYSTEMS: CONSTITUTIONAL: Denies fever or chills. HEENT: Denies blurred vision, vision changes, or eye pain. Denies hemoptysis CARDIOVASCULAR: Denies chest pain or pressure. RESPIRATORY: No shortness of breath. GASTROINTESTINAL: See HPI for pertinent findings HEMATOLOGIC: Denies bleeding disorders. GENITOURINARY: Denies any blood in urine or increased urinary frequency. SKIN: Denies pruitis. Denies rash. PHYSICAL EXAM: VITAL SIGNS: Reviewed GENERAL: Well-developed in no acute distress. HEENT: No sclera icterus. Extraocular movements grossly intact. Moist buccal mucosa. Head is atraumatic, normocephalic. No nasal drainage. ABDOMEN: Soft. Obese. Nondistended. Right lower abdomen 2 areas of abscess with induration and tenderness with palpation. There is purulent drainage noted from the most distal abscess. The upper abscess is scabbed over with small blackened area. NEUROLOGIC: Alert and oriented. Cranial nerves II through XII grossly intact. IMAGING: ASSESSMENT: 1. Right lower abdominal abscess 2. Uncontrolled diabetes PLAN: OR tomorrow per primary surgeon. -Recommend antibiotics -Recommend warm compresses -Recommend patient showers daily -Recommend glucose management
[2023-03-30 17:30] LABS: Glucose,Whole Blood 165 mg/dL (70-110)
[2023-03-30 20:37] LABS: Glucose,Whole Blood 262 mg/dL (70-110)
[2023-03-30] MEDS: ONDANSETRON 4 MG/2 ML VIAL IVP PRN (20:47)
[2023-03-30] MEDS: ATORVASTATIN 80 MG TAB PO SCH (20:47)
--- NOTE | 2023-03-30 23:20 | HP ---
HISTORY AND PHYSICAL CHIEF COMPLAINT: Abscess in right groin. HISTORY OF PRESENT ILLNESS: This is another recent admission for this 52-year-old obese white female, who is noncompliant. She does not come to the office. She does not take her insulin properly. She frequently comes in with an elevated blood sugar and often with pancreatitis due to hypertriglyceridemia. She came back again this time with hyperglycemia, weakness, and a new abscess in the right groin. She was just in the hospital for an MRSA abscess of left lower quadrant. REVIEW OF SYSTEMS: She has had no headaches, chest pain, abdominal pain, nausea, vomiting, chills, fever, etc. Past medical history, family history, and personal and social histories were all otherwise unremarkable and noncontributory and are unchanged. Blood sugars were elevated. It is never clear as to whether or not she is taking medications. When she was seen earlier in the month, she was on amlodipine, Bactrim, hydralazine, Levemir, NovoLog, albuterol MDI, and trazodone. She used to smoke, but does not any longer. PHYSICAL EXAMINATION: VITAL SIGNS: Blood pressure was 135/90 with a pulse of 86, respirations of 34, and she is afebrile. GENERAL: She appeared to be obese and in no acute distress. SKIN: Color is normal. Skin is warm and dry. She had an abscess in the right groin. HEAD, EARS, EYES, NOSE, MOUTH AND THROAT: Normal. CHEST: Clear. CARDIAC: Normal. ABDOMEN: Soft and nontender. There is an abscess in the right groin as already mentioned. EXTREMITIES: Normal. NEUROLOGICAL: She is intact. ASSESSMENT: She is admitted to the hospital with diagnoses of: 1. Uncontrolled diabetes mellitus. 2. Dehydration. 3. Abscess in the right groin. 4. Hypertriglyceridemia. 5. History of pancreatitis. PLAN: 1. Bed rest. 2. IV fluids. 3. IV antibiotics. 4. Consult with Vascular Surgery. MMODL / IJN: [id number] /
[2023-03-31] MEDS: HYDROmorphone 1 MG/ML 1 ML SYRINGE IVP PRN ×5 (03:38→20:29)
[2023-03-31] MEDS: SODIUM CHLORIDE 0.9% 1,000 ML IV SCH ×3 (05:11→19:49)
[2023-03-31 05:20] LABS: African American GFR (CKD) >90 (>60 ml/min/1.73 sqM); Anion Gap 9 mmol/L; Blood Urea Nitrogen 12 mg/dL (7-17); Calcium 8.4 mg/dL (8.4-10.2); Carbon Dioxide 25 mmol/L (22-30); Chloride 103 mmol/L (98-107); Glucose 204 mg/dL (74-99); Non-African American GFR(CKD) >90 (>60 ml/min/1.73 sqM); Sodium 137 mmol/L (137-145)
[2023-03-31] MEDS: VANCOMYCIN 1,750 MG in SODIUM CHLORIDE 0.9% 500 ML 500 ML IVPB SCH (05:22)
--- NOTE | 2023-03-31 07:37 | P.PN ---
Subjective Progress Note Date: 03/30/23 Principal diagnosis: Reason for follow-up is right groin/lower abdominal area abscess and cellulitis Patient is a 52-year-old female with a past medical history significa nt for diabetes mellitus hypertension history of MRSA skin soft tissue infection present to the hospital with a right lower abdominal/groin area pain swelling redness concerning for abscess and cellulitis. On today's evaluation that is 03/30/2023, the patient denies having any fever or any chills patient is breathing comfortably on room air no chest pain shortness of breath or cough lower abdominal swelling redness has decreased and no further drainage. Patient did have a creatinine 0.47 no CBC was done today cultures are currently pending Objective - Vital Signs Vital signs: Vital Signs Temp 98.7 F 03/30/23 07:00 Pulse 56 L 03/30/23 09:13 Resp 16 03/30/23 07:00 BP 145/71 03/30/23 07:00 Pulse Ox 97 03/30/23 09:04 FiO2 21 03/29/23 08:10 Intake & Output 03/29/23 03/30/23 03/30/23 18:59 06:59 18:59 Intake Total 1118 118 Balance 1118 118 Intake: Oral 1118 118 Other: Voiding Method Toilet Toilet # Voids 3 1 - Exam GENERAL DESCRIPTION: Middle-aged female lying in bed in no distress RESPIRATORY SYSTEM: Unlabored breathing , decreased breath sounds at bases HEART: S1 S2 regular rate and rhythm , ABDOMEN: Soft , right lower abdominal/groin area swelling redness has decreased no drainage EXTREMITIES: No edema feet - Labs CBC & Chem 7: 03/29/23 06:04 03/31/23 04:39 Labs: Abnormal Lab Results - Last 24 Hours (Table) 03/29/23 03/29/23 03/29/23 Range/Units 06:04 12:11 17:05 Creatinine (0.52-1.04) mg/dL Glucose (74-99) mg/dL POC Glucose (mg/dL) 218 H 152 H (70-110) mg/dL Triglycerides 745.00 H (0.00-149.00) mg/dL Cholesterol 217.00 H (0.00-200.00) mg/dL VLDL Cholesterol, Calc 149.00 H (5.00-40.00) mg/dL HDL Cholesterol 24.30 L (40.00-60.00) mg/dL 03/29/23 03/30/23 03/30/23 Range/Units 19:34 06:05 06:57 Creatinine 0.47 L (0.52-1.04) mg/dL Glucose 234 H (74-99) mg/dL POC Glucose (mg/dL) 199 H 259 H (70-110) mg/dL Triglycerides (0.00-149.00) mg/dL Cholesterol (0.00-200.00) mg/dL VLDL Cholesterol, Calc (5.00-40.00) mg/dL HDL Cholesterol (40.00-60.00) mg/dL 03/30/23 03/30/23 Range/Units 08:43 11:52 Creatinine (0.52-1.04) mg/dL Glucose (74-99) mg/dL POC Glucose (mg/dL) 309 H 238 H (70-110) mg/dL Triglycerides (0.00-149.00) mg/dL Cholesterol (0.00-200.00) mg/dL VLDL Cholesterol, Calc (5.00-40.00) mg/dL HDL Cholesterol (40.00-60.00) mg/dL Assessment and Plan (1) Abscess of groin, right Current Visit: Yes Status: Acute Code(s): L02.214 - CUTANEOUS ABSCESS OF G ROIN SNOMED Code(s): 05459807 Plan: 1-patient with area of swelling and redness to the lower abdominal area with some purulent drainage likely related to MRSA skin soft tissue infection as the patient had brief history of MRSA infection 2patient to continue with the vancomycin pharmacy to dose while watching her kidney function closely and while waiting for the culture to be finalized to determine her discharge antibiotics Dictation was produced using [employer] dictation software. please excuse any grammatical, word or spelling errors.
[2023-03-31] MEDS: ALBUTEROL NEBULIZED 2.5 MG/3 ML INHALATION SCH ×4 (07:42→18:24)
[2023-03-31 08:04] LABS: Glucose,Whole Blood 223 mg/dL (70-110)
[2023-03-31] MEDS: hydrALAZINE HCL 25 MG TAB PO SCH ×2 (08:55→19:50)
[2023-03-31] MEDS: amLODIPine 10 MG TAB PO SCH (08:55)
[2023-03-31] MEDS: INSULIN ASPART (NovoLOG) 100 UNIT/ML VIAL SQ SCH ×7 (08:55→19:50)
[2023-03-31] MEDS: INSULIN DETEMIR (LEVEMIR) 100 UNIT/ML SYR SQ SCH (08:55)
[2023-03-31] MEDS: PANTOPRAZOLE 40 MG/10 ML VIAL IV SCH (08:56)
[2023-03-31] MEDS: lisinopriL 20 MG TAB PO SCH (08:56)
[2023-03-31] MEDS: metFORMIN 500 MG TAB PO SCH (08:56)
--- NOTE | 2023-03-31 11:16 | P.PN ---
Subjective Progress Note Date: 03/31/23 Principal diagnosis: Reason for follow-up is right groin/lower abdominal area abscess and cellulitis Patient is a 52-year-old female with a past medical history significa nt for diabetes mellitus hypertension history of MRSA skin soft tissue infection present to the hospital with a right lower abdominal/groin area pain swelling redness concerning for abscess and cellulitis. On today's evaluation that is 03/31/2023 the patient remains to be afebrile patient is breathing comfortably on room air the patient denies having any chest pain shortness of breath or cough the patient right groin area swelling redness has slightly decreased did mention slight drainage. Patient did have a creatinine of 0.44 culture showing gram-negative bacilli and Streptococcus agalactiae Objective - Vital Signs Vital signs: Vital Signs Temp 98.6 F 03/31/23 07:00 Pulse 68 03/31/23 07:53 Resp 16 03/31/23 07:00 BP 134/65 03/31/23 07:00 Pulse Ox 96 03/31/23 07:44 FiO2 21 03/29/23 08:10 Intake & Output 03/30/23 03/31/23 03/31/23 18:59 06:59 18:59 Intake Total 778 360 Balance 778 360 Intake: Oral 778 360 Other: Voiding Method Toilet # Voids 5 1 - Labs CBC & Chem 7: 03/29/23 06:04 03/31/23 04:39 Labs: Abnormal Lab Results - Last 24 Hours (Table) 03/30/23 03/30/23 03/30/23 Range/Units 11:52 17:29 20:35 Creatinine (0.52-1.04) mg/dL Glucose (74-99) mg/dL POC Glucose (mg/dL) 238 H 165 H 262 H (70-110) mg/dL 03/31/23 03/31/23 Range/Units 04:39 08:03 Creatinine 0.44 L (0.52-1.04) mg/dL Glucose 204 H (74-99) mg/dL POC Glucose (mg/dL) 223 H (70-110) mg/dL Microbiology - Last 24 Hours (Table) 03/29/23 15:40 Gram Stain - Preliminary Abdomen Wound Culture - Preliminary Gram Neg Bacilli Strep agalactiae - (group b) Assessment and Plan (1) Abscess of groin, right Current Visit: Yes Status: Acute Code(s): L02.214 - CUTANEOUS ABSCESS OF GROIN SNOMED Code(s): 64959530 Plan: 1-patient with area of swelling and redness to the lower abdominal area with some purulent drainage likely related to MRSA skin soft tissue infection as the patient had history of MRSA infection 2local culture now growing gram-negative bacilli and Streptococcus agalactiae, we will discontinue vancomycin start the patient on cefepime while waiting for the culture to finalize and monitor clinical course closely Dictation was produced using [employer] dictation software. please excuse any grammatical, word or spelling errors.
[2023-03-31 12:56] LABS: Glucose,Whole Blood 256 mg/dL (70-110)
[2023-03-31] MEDS: CEFEPIME 2 GM in SODIUM CHLORIDE 0.9% 100 ML IVPB SCH ×2 (13:01→19:49)
--- NOTE | 2023-03-31 13:14 | PN ---
PROGRESS NOTE DATE OF SERVICE: 03/31/2023 CHIEF COMPLAINT: Uncontrolled diabetes and right groin abscess. HISTORY OF PRESENT ILLNESS: This lady is doing fairly well. Sugars are high and her insulin will be raised again. PHYSICAL EXAMINATION: CHEST: Clear. CARDIAC: Normal. ABDOMEN: Soft, nontender. IMPRESSION: 1. Uncontrolled diabetes. 2. Right groin abscess. PLAN: Increase Levemir to 120 once a day. MMODL / IJN: [id number] /
--- NOTE | 2023-03-31 13:26 | PN ---
PROGRESS NOTE DATE OF SERVICE: 03/30/2023 CHIEF COMPLAINT: Abscess, right groin and diabetes. HISTORY OF PRESENT ILLNESS: This lady is doing fairly well. She is fairly comfortable. She has been afebrile. Sugars are elevated. PHYSICAL EXAMINATION: CHEST: Clear. CARDIAC: Normal. ABDOMEN: Soft, nontender. IMPRESSION: 1. Abscess, right groin. 2. Uncontrolled diabetes. 3. Hypertriglyceridemia. PLAN: Continue with antibiotics and insulin management. Levemir will be increased. MMODL / IJN: [id number] /
--- NOTE | 2023-03-31 13:38 | P.PN ---
Subjective Progress Note Date: 03/31/23 CHIEF COMPLAINT: Groin abscess HISTORY OF PRESENT ILLNESS: The patient is a 52-year-old female presents with abscess. Patient has poorly controlled diabetes. Has abscess which she states is draining and much better since admission. ROS: No reports of nausea and vomiting. No bowel movements. No fevers or chills. No new chest pain. No productive sputum PHYSICAL EXAM: VITAL SIGNS: Reviewed CONSTITUTIONAL: Well developed and in no acute distress. EYES: Conjuctivae without sclera icterus. Extraocular movements grossly intact. HEAD, EARS, NOSE, THROAT: Moist buccal mucosa. Head is atraumatic, normocephalic. Hears conversational speech. No nasal drainage. RESPIRATORY: Non-labored respirations and equal bilateral excursions. CARDIOVASCULAR: Palpable 2+ radial pulses. ABDOMEN: No large sizeable drainage noted on exam of the right groin, 3 cm. MUSCULOSKELETAL: No gross deformity of the lower extremities noted. No clubbing. No cyanosis. SKIN: Good skin turgor. Well perfused. NEUROLOGIC: Cranial nerves II through XII grossly intact. No focal or lateralizing signs. PSYCH: Appropriate affect. Alert and oriented to person, place and time. CLINICAL LABS: Reviewed. WBC elevated. ASSESSMENT: 1. Right groin abscess 2. Uncontrolled diabetes with hyperglycemia. PLAN: 1. Ultrasound of groin to access depth and size of abscess limited on exam due to body habitus. 2. Diet as tolerated. 3. Surgical intervention pending results of ultrasound. Objective - Vital Signs Vital signs: Vital Signs Temp 98.6 F 03/31/23 07:00 Pulse 68 03/31/23 07:53 Resp 16 03/31/23 07:00 BP 134/65 03/31/23 07:00 Pulse Ox 96 03/31/23 07:44 FiO2 21 03/29/23 08:10 Intake & Output 03/30/23 03/31/23 03/31/23 18:59 06:59 18:59 Intake Total 778 360 Balance 778 360 Intake: Oral 778 360 Other: Voiding Method Toilet # Voids 5 1 - Labs CBC & Chem 7: 03/29/23 06:04 03/31/23 04:39 Labs: Abnormal Lab Results - Last 24 Hours (Table) 03/30/23 03/30/23 03/31/23 Range/Units 17:29 20:35 04:39 Creatinine 0.44 L (0.52-1.04) mg/dL Glucose 204 H (74-99) mg/dL POC Glucose (mg/dL) 165 H 262 H (70-110) mg/dL 03/31/23 03/31/23 Range/Units 08:03 12:52 Creatinine (0.52-1.04) mg/dL Glucose (74-99) mg/dL POC Glucose (mg/dL) 223 H 256 H (70-110) mg/dL Microbiology - Last 24 Hours (Table) 03/29/23 15:40 Gram Stain - Preliminary Abdomen Wound Culture - Preliminary Gram Neg Bacilli Strep agalactiae - (group b)
--- NOTE | 2023-03-31 15:53 | US ---
EXAMINATION TYPE: US groin RT DATE OF EXAM: 03/31/2023 COMPARISON: NONE CLINICAL INDICATION: Female, 52 years old with history of Swelling with possible complicated abscess; wound at right groin that is hard, red, and tender TECHNIQUE: several images taken at area of concern FINDINGS: Control Systems Specialist notes: Irregular collection deep to the open wound measuring up to 3.2x0.9x2.3 cm IMPRESSION: At the area of concern, there is an irregular fluid collection measuring 3.2 cm deep to the wound communicating to the skin surface. Surrounding edematous tissues.
[2023-03-31 17:01] LABS: Glucose,Whole Blood 152 mg/dL (70-110)
[2023-03-31 17:02] VITALS: BMI 44.3
[2023-03-31 19:46] LABS: Glucose,Whole Blood 263 mg/dL (70-110)
[2023-03-31] MEDS: ATORVASTATIN 80 MG TAB PO SCH (19:49)
[2023-04-01] MEDS: HYDROmorphone 1 MG/ML 1 ML SYRINGE IVP PRN ×3 (02:17→20:56)
[2023-04-01] MEDS: SODIUM CHLORIDE 0.9% 1,000 ML IV SCH ×3 (02:50→19:31)
[2023-04-01] MEDS ORDERED: VANCOMYCIN TROUGH DUE 1 EACH MISC MISCELLANE ONE (04:00)
[2023-04-01] MEDS: CEFEPIME 2 GM in SODIUM CHLORIDE 0.9% 100 ML IVPB SCH ×3 (04:39→20:43)
[2023-04-01 07:59] LABS: Glucose,Whole Blood 283 mg/dL (70-110)
[2023-04-01] MEDS: ALBUTEROL NEBULIZED 2.5 MG/3 ML INHALATION SCH ×4 (08:58→18:26)
[2023-04-01] MEDS: PANTOPRAZOLE 40 MG/10 ML VIAL IV SCH (09:38)
[2023-04-01] MEDS: ONDANSETRON 4 MG/2 ML VIAL IVP PRN (09:39)
[2023-04-01] MEDS: metFORMIN 500 MG TAB PO SCH (11:41)
[2023-04-01] MEDS: INSULIN ASPART (NovoLOG) 100 UNIT/ML VIAL SQ SCH ×7 (11:41→20:44)
[2023-04-01] MEDS: hydrALAZINE HCL 25 MG TAB PO SCH ×2 (12:13→20:43)
[2023-04-01] MEDS: lisinopriL 20 MG TAB PO SCH (12:13)
[2023-04-01] MEDS: amLODIPine 10 MG TAB PO SCH (12:13)
--- NOTE | 2023-04-01 12:15 | P.PN ---
Subjective Progress Note Date: 04/01/23 CHIEF COMPLAINT: Groin abscess HISTORY OF PRESENT ILLNESS: The patient is a 52-year-old female presents with abscess. Patient has poorly controlled diabetes blood sugars over 250. She reports no moderate drainage today or last night following studies. ROS: No reports of nausea and vomiting. No bowel movements. No fevers or chills. No new chest pain. No productive sputum PHYSICAL EXAM: VITAL SIGNS: Reviewed CONSTITUTIONAL: Well developed and in no acute distress. EYES: Conjuctivae without sclera icterus. Extraocular movements grossly intact. HEAD, EARS, NOSE, THROAT: Moist buccal mucosa. Head is atraumatic, normocephalic. Hears conversational speech. No nasal drainage. RESPIRATORY: Non-labored respirations and equal bilateral excursions. CARDIOVASCULAR: Palpable 2+ radial pulses. ABDOMEN: Right groin abscess 3 to 4 cm, tender with cellulitis MUSCULOSKELETAL: No gross deformity of the lower extremities noted. No clubbing. No cyanosis. SKIN: Good skin turgor. Well perfused. NEUROLOGIC: Cranial nerves II through XII grossly intact. No focal or lateralizing signs. PSYCH: Appropriate affect. Alert and oriented to person, place and time. CLINICAL LABS: Reviewed. BSG over 280s. STUDIES: Ultrasound of right groin independently reviewed with 3-cm abscess, deep subcutaneous. ASSESSMENT: 1. Right groin abscess 2. Uncontrolled diabetes with hyperglycemia. PLAN: 1. Ultrasound confirms organized drainable fluid collection deep in the tissue. Recommend surgical drainage with cultures. Objective - Vital Signs Vital signs: Vital Signs Temp 98.5 F 04/01/23 06:55 Pulse 50 L 04/01/23 08:00 Resp 16 04/01/23 08:00 BP 145/64 04/01/23 06:55 Pulse Ox 97 04/01/23 06:55 FiO2 21 03/29/23 08:10 Intake & Output 03/31/23 04/01/23 04/01/23 18:59 06:59 18:59 Intake Total 600 Balance 600 Weight 102.965 kg Intake: Oral 600 Other: Voiding Method Toilet Toilet # Voids 3 1 - Labs CBC & Chem 7: 03/29/23 06:04 03/31/23 04:39 Labs: Abnormal Lab Results - Last 24 Hours (Table) 03/31/23 03/31/23 03/31/23 Range/Units 12:52 16:59 19:40 POC Glucose (mg/dL) 256 H 152 H 263 H (70-110) mg/dL 04/01/23 Range/Units 07:57 POC Glucose (mg/dL) 283 H (70-110) mg/dL Microbiology - Last 24 Hours (Table) 03/29/23 15:40 Gram Stain - Final Abdomen Wound Culture - Final Enterobacter aerogenes Strep agalactiae - (group b)
[2023-04-01 12:29] LABS: Glucose,Whole Blood 274 mg/dL (70-110)
[2023-04-01] MEDS: INSULIN DETEMIR (LEVEMIR) 100 UNIT/ML SYR SQ SCH (13:03)
[2023-04-01 15:28] LABS: Glucose,Whole Blood 171 mg/dL (70-110)
[2023-04-01] MEDS ORDERED: ONDANSETRON 4 MG/2 ML VIAL ONE (16:37)
[2023-04-01] MEDS ORDERED: ROCURONIUM 10 MG/ML (5 ML VIAL) IV ONE (16:37)
[2023-04-01] MEDS ORDERED: GLYCOPYRROLATE 0.2 MG/ML 2 ML VIAL ONE (16:37)
[2023-04-01] MEDS ORDERED: NEOSTIGMINE 1 MG/ML 10 ML VIAL ONE (16:37)
[2023-04-01] MEDS ORDERED: HYDROmorphone (PF) 1 MG/ML ONE (16:37)
[2023-04-01] MEDS ORDERED: fentaNYL (PF) 50 MCG/ML 2 ML AMP ONE (16:37)
[2023-04-01] MEDS ORDERED: PROPOFOL 10 MG/ML 20 ML VIAL IV ONE (16:37)
[2023-04-01] MEDS ORDERED: ePHEDrine 50 MG/ML 1 ML VIAL ONE (16:37)
[2023-04-01] MEDS ORDERED: SUCCINYLCHOLINE CHLORIDE 200 MG/10 ML VIAL IV ONE (16:37)
[2023-04-01] MEDS ORDERED: LIDOCAINE 2% (PF) 20 MG/ML 5 ML VIAL ONE (16:37)
[2023-04-01] MEDS ORDERED: SODIUM CHLORIDE 0.9% 1,000 ML IV ONE (16:42)
[2023-04-01] MEDS ORDERED: LIDOCAINE 2%-EPI 1:100,000 20 ML VIAL SQ ONE ×2 (17:04→17:10)
[2023-04-01] MEDS ORDERED: LACTATED RINGERS 1,000 ML IV ONE (17:11)
--- NOTE | 2023-04-01 17:51 | P.OP ---
Date of Procedure: 04/01/23 Description of Procedure: SURGEON: DARVIN GONZALEZ MD MANNEQUIN MOLD MAKER: NONE. PREOPERATIVE DIAGNOSES: 1. Complex right groin/suprapubic abscess with cellulitis 2. Uncontrolled diabetes type 2 with hyperglycemia 3. Morbid obesity due to excess calories, BMI 44.3 4. Hypertensive heart disease 5. Insulin-dependent diabetes type 2, uncontrolled 6. Asthma 7. Gastroesophageal reflux disease POSTOPERATIVE DIAGNOSES: 1. Complex right groin/suprapubic abscess with cellulitis, 5 x 3 cm 2. Uncontrolled diabetes type 2 with hyperglycemia 3. Morbid obesity due to excess calories, BMI 44.3 4. Hypertensive heart disease 5. Insulin-dependent diabetes type 2, uncontrolled 6. Asthma 7. Gastroesophageal reflux disease OPERATION: 1. Excision of right right groin/suprapubic soft tissue mass 5 x 3 cm 2. Application of incisional wound VAC system, 13 cm PREVENA 3. Mechanical debridement 5 x 3 cm waterjet pulsatile, 3 L normal saline 4. Placement of quarter-inch Adelaide drain, subcutaneous tissue ANESTHESIA: GETA and local ESTIMATED BLOOD LOSS: 20 mL. SPECIMENS REMOVED: 1. Aerobic and anaerobic cultures of right groin abscess 2. Right groin soft tissue mass COMPLICATIONS: None. FINDINGS: 1. Complex right groin/suprapubic mass 5 x 3 cm excised to deep subcutaneous tissue 2. Lipoma, right groin excised with subcutaneous mass INDICATIONS: The patient is a 52-year-old female who presents with uncontrolled diabetes, hyperglycemia and complex soft tissue right groin/suprapubic mass. Surgical options, including excision was discussed. Benefits and risks were described. Informed consent was obtained. DESCRIPTION OF PROCEDURE: In the pre-operative area, the mass was palpated and marked with indelible marker. Patient was brought into the operating room, laid in supine position. After general induction, the abdomen was prepped and draped in standard sterile fashion using ChloraPrep. The right leg was frog legged. A timeout protocol was confirmed with the surgical team regarding patient's name including procedures to be performed. Preoperative medications was administered. After local anesthetic, elliptical 5 x 3 cm incision into the subcutaneous tissue was performed with excision of soft tissue tumor including lipoma. Aerobic and anaerobic cultures were obtained of the complex abscess pocket. Hemostasis was checked with electrocautery Bovie cautery. The specimen was passed off. The wound pocket was irrigated with dilute hydrogen peroxide. Medical Pulsavac waterjet 3 L normal saline solution for 5 x 3 cm pocket. A quarter inch Perry drain was placed along the bed of the deep tissue space. The skin was cleansed. Stain and skin tianna was placed. For the wound length 6 cm, incisional wound VAC system was placed to allow for drainage. At the end of the procedure, needle, sponge, and instrument count had been verified correct by the surgical services manager. The patient was taken to the postanesthesia care unit in stable condition.
[2023-04-01 17:56] LABS: Glucose,Whole Blood 176 mg/dL (70-110)
[2023-04-01 20:09] LABS: Glucose,Whole Blood 188 mg/dL (70-110)
[2023-04-01] MEDS: ATORVASTATIN 80 MG TAB PO SCH (20:43)
--- NOTE | 2023-04-01 21:41 | PN ---
PROGRESS NOTE CHIEF COMPLAINT: Uncontrolled diabetes and right groin abscess. HISTORY OF PRESENT ILLNESS: This lady is going to surgery for drainage of the abscess. Other than that, she is doing well. PHYSICAL EXAMINATION: CHEST: Clear. CARDIAC: Normal. ABDOMEN: Soft, nontender. IMPRESSION: 1. Abscess of the right groin. 2. Uncontrolled diabetes. 3. Obesity. PLAN: Incision and drainage of the right groin today. MMODL / IJN: [id number] /
[2023-04-02] MEDS: HYDROmorphone 1 MG/ML 1 ML SYRINGE IVP PRN ×7 (01:51→22:41)
[2023-04-02] MEDS: SODIUM CHLORIDE 0.9% 1,000 ML IV SCH ×3 (02:11→18:29)
[2023-04-02] MEDS: CEFEPIME 2 GM in SODIUM CHLORIDE 0.9% 100 ML IVPB SCH ×3 (03:07→19:27)
[2023-04-02 05:20] LABS: Glucose,Whole Blood 175 mg/dL (70-110)
[2023-04-02] MEDS: INSULIN ASPART (NovoLOG) 100 UNIT/ML VIAL SQ SCH ×8 (05:22→21:15)
--- NOTE | 2023-04-02 07:04 | P.PN ---
Subjective Progress Note Date: 04/01/23 Principal diagnosis: Reason for follow-up is right groin/lower abdominal area abscess and cellulitis Patient is a 52-year-old female with a past medical history significa nt for diabetes mellitus hypertension history of MRSA skin soft tissue infection present to the hospital with a right lower abdominal/groin area pain swelling redness concerning for abscess and cellulitis. On today's evaluation that is 04/01/2023 the patient continues to be afebrile patient is breathing comfortably on room air without the need for supplemental oxygen patient denies having any chest pain shortness of breath or cough complaining of pain to the right groin area and did have occasional drainage denies any nausea vomiting or diarrhea No labs has been obtained today initial culture has been finalized with Enterobacter and Streptococcus agalactiae Objective - Vital Signs Vital signs: Vital Signs Temp 98.5 F 04/01/23 06:55 Pulse 50 L 04/01/23 08:00 Resp 16 04/01/23 08:00 BP 145/64 04/01/23 06:55 Pulse Ox 97 04/01/23 06:55 FiO2 21 03/29/23 08:10 Intake & Output 03/31/23 04/01/23 04/01/23 18:59 06:59 18:59 Intake Total 600 Balance 600 Weight 102.965 kg Intake: Oral 600 Other: Voiding Method Toilet Toilet # Voids 3 1 - Exam GENERAL DESCRIPTION: Middle-aged female lying in bed in no distress RESPIRATORY SYSTEM: Unlabored breathing , decreased breath sounds at bases HEART: S1 S2 regular rate and rhythm , ABDOMEN: Soft , right lower abdominal/groin area swelling redness has decreased no drainage EXTREMITIES: No edema feet - Labs CBC & Chem 7: 03/29/23 06:04 03/31/23 04:39 Labs: Abnormal Lab Results - Last 24 Hours (Table) 03/31/23 03/31/23 03/31/23 Range/Units 12:52 16:59 19:40 POC Glucose (mg/dL) 256 H 152 H 263 H (70-110) mg/dL 04/01/23 Range/Units 07:57 POC Glucose (mg/dL) 283 H (70-110) mg/dL Microbiology - Last 24 Hours (Table) 03/29/23 15:40 Gram Stain - Preliminary Abdomen Wound Culture - Preliminary Gram Neg Bacilli Strep agalactiae - (group b) Assessment and Plan (1) Abscess of groin, right Current Visit: Yes Status: Acute Code(s): L02.214 - CUTANEOUS ABSCESS OF GROIN SNOMED Code(s): 78985554 Plan: 1-patient with area of swelling and redness to the lower abdominal area with some purulent drainage likely related to MRSA skin soft tissue infection as the patient had history of MRSA infection 2local culture has been finalized with Enterobacter and Streptococcus atelectatic patient to continue with the cefepime patient is scheduled for surgical drainage of this abscess this afternoon by general surgery at which time deep culture should be obtain and results will be followed Dictation was produced using [employer] dictation software. please excuse any grammatical, word or spelling errors. Time with Patient: Less than 30
[2023-04-02] MEDS: INSULIN DETEMIR (LEVEMIR) 100 UNIT/ML SYR SQ SCH (08:18)
[2023-04-02] MEDS: hydrALAZINE HCL 25 MG TAB PO SCH ×2 (08:24→19:28)
[2023-04-02] MEDS: PANTOPRAZOLE 40 MG/10 ML VIAL IV SCH (08:29)
[2023-04-02] MEDS: metFORMIN 500 MG TAB PO SCH (08:29)
[2023-04-02] MEDS: amLODIPine 10 MG TAB PO SCH (08:29)
[2023-04-02] MEDS: lisinopriL 20 MG TAB PO SCH (08:29)
[2023-04-02] MEDS: ALBUTEROL NEBULIZED 2.5 MG/3 ML INHALATION SCH ×4 (09:05→19:57)
--- NOTE | 2023-04-02 09:05 | P.PN ---
Subjective Progress Note Date: 04/02/23 CHIEF COMPLAINT: Groin abscess HISTORY OF PRESENT ILLNESS: The patient is a 52-year-old female presents with abscess. She is status post excision of right groin mass with wound vac. She feels well. Blood sugars have improved. She reports feeling tired. ROS: No reports of nausea and vomiting. No bowel movements. No fevers or chills. No new chest pain. No productive sputum PHYSICAL EXAM: VITAL SIGNS: Reviewed CONSTITUTIONAL: Well developed and in no acute distress. EYES: Conjuctivae without sclera icterus. Extraocular movements grossly intact. HEAD, EARS, NOSE, THROAT: Moist buccal mucosa. Head is atraumatic, normocephalic. Hears conversational speech. No nasal drainage. RESPIRATORY: Non-labored respirations and equal bilateral excursions. CARDIOVASCULAR: Palpable 2+ radial pulses. ABDOMEN: Dressing along right groin intact with PREVENA. MUSCULOSKELETAL: No gross deformity of the lower extremities noted. No clubbing. No cyanosis. SKIN: Good skin turgor. Well perfused. NEUROLOGIC: Cranial nerves II through XII grossly intact. No focal or lateralizing signs. PSYCH: Appropriate affect. Alert and oriented to person, place and time. CLINICAL LABS: Reviewed. ASSESSMENT: 1. Right groin abscess 2. Uncontrolled diabetes with hyperglycemia. PLAN: 1. Await cultures 2. Continue VAC for 1 week prior to removal 3. VAC canister to be changed when full. Objective - Vital Signs Vital signs: Vital Signs Temp 98.0 F 04/02/23 07:00 Pulse 96 04/02/23 07:00 Resp 16 04/02/23 07:00 BP 103/58 04/02/23 07:00 Pulse Ox 96 04/02/23 07:00 FiO2 21 03/29/23 08:10 Intake & Output 04/01/23 04/02/23 04/02/23 18:59 06:59 18:59 Intake Total 500 Output Total 20 Balance 480 Intake: IV 500 Output: Estimated Blood Loss 20 Other: Voiding Method Toilet Toilet # Voids 3 1 - Labs CBC & Chem 7: 03/29/23 06:04 03/31/23 04:39 Labs: Abnormal Lab Results - Last 24 Hours (Table) 04/01/23 04/01/23 04/01/23 Range/Units 12:27 15:26 17:55 POC Glucose (mg/dL) 274 H 171 H 176 H (70-110) mg/dL 04/01/23 04/02/23 Range/Units 20:08 05:19 POC Glucose (mg/dL) 188 H 175 H (70-110) mg/dL Microbiology - Last 24 Hours (Table) 04/01/23 17:20 Gram Stain - Preliminary Groin 03/29/23 15:40 Anaerobic Culture - Preliminary Abdomen 03/29/23 15:40 Gram Stain - Final Abdomen Wound Culture - Final Enterobacter aerogenes Strep agalactiae - (group b)
[2023-04-02 10:15] LABS: Basophils # (A) 0.05 X 10*3/uL (0.00-0.10); Basophils % (A) 0.7 %; Eosinophils # (A) 0.18 X 10*3/uL (0.04-0.35); Eosinophils % (A) 2.3 %; HGB 11.7 g/dL (12.0-15.0); Lymphocytes # (A) 2.23 X 10*3/uL (0.90-5.00); MCH 26.3 pg (27.0-32.0); MCHC 30.8 g/dL (32.0-37.0); MCV 85.4 FL (80.0-97.0); Mean Platelet Volume 11.4 FL (9.5-12.2); Monocytes # (A) 0.39 X 10*3/uL (0.20-1.00); Monocytes % (A) 5.1 %; NRBC Per 100 WBC 0 X 10*3/uL (0.00-0.01); Neutrophils # (A) 4.83 X 10*3/uL (1.80-7.70); Neutrophils % (A) 62.8 %; Platelet Count 227 X 10*3/uL (140-440); RBC 4.45 X 10*6/uL (4.10-5.20); RBC Morphology Normal (Normal); RDW 16.9 % (11.5-14.5); WBC 7.69 X 10*3/uL (4.50-10.00)
[2023-04-02 12:07] LABS: Glucose,Whole Blood 330 mg/dL (70-110)
--- NOTE | 2023-04-02 15:49 | P.PN ---
Subjective Progress Note Date: 04/02/23 Principal diagnosis: Reason for follow-up is right groin/lower abdominal area abscess and cellulitis Patient is a 52-year-old female with a past medical history significa nt for diabetes mellitus hypertension history of MRSA skin soft tissue infection present to the hospital with a right lower abdominal/groin area pain swelling redness concerning for abscess and cellulitis.Patient is status post complex right groin suprapubic abscess drainage by general surgery completed on 07/31/2022. On today's evaluation that is 04/02/2023 patient denies any fever or any chills patient is breathing comfortably on room air still complaining of pain to the right groin area denies any nausea vomiting and no diarrhea. Patient white count of 7.69 initial culture with Enterobacter and Streptococcus OR cultures are pending Objective - Vital Signs Vital signs: Vital Signs Temp 98.0 F 04/02/23 07:00 Pulse 96 04/02/23 07:00 Resp 16 04/02/23 07:00 BP 103/58 04/02/23 07:00 Pulse Ox 94 L 04/02/23 09:06 FiO2 21 03/29/23 08:10 Intake & Output 04/01/23 04/02/23 04/02/23 18:59 06:59 18:59 Intake Total 500 118 Output Total 20 Balance 480 118 Intake: IV 500 Oral 118 Output: Estimated Blood Loss 20 Other: Voiding Method Toilet Toilet # Voids 3 1 - Exam GENERAL DESCRIPTION: Middle-aged female lying in bed in no distress RESPIRATORY SYSTEM: Unlabored breathing , decreased breath sounds at bases HEART: S1 S2 regular rate and rhythm , ABDOMEN: Soft , right lower abdominal/groin area swelling redness has decreased no drainage EXTREMITIES: No edema feet - Labs CBC & Chem 7: 04/02/23 05:42 03/31/23 04:39 Labs: Abnormal Lab Results - Last 24 Hours (Table) 04/01/23 04/01/23 04/01/23 Range/Units 12:27 15:26 17:55 Hgb (12.0-15.0) g/dL MCH (27.0-32.0) pg MCHC (32.0-37.0) g/dL RDW (11.5-14.5) % POC Glucose (mg/dL) 274 H 171 H 176 H (70-110) mg/dL 04/01/23 04/02/23 04/02/23 Range/Units 20:08 05:19 05:42 Hgb 11.7 L (12.0-15.0) g/dL MCH 26.3 L (27.0-32.0) pg MCHC 30.8 L (32.0-37.0) g/dL RDW 16.9 H (11.5-14.5) % POC Glucose (mg/dL) 188 H 175 H (70-110) mg/dL Microbiology - Last 24 Hours (Table) 04/01/23 17:20 Gram Stain - Preliminary Groin 03/29/23 15:40 Anaerobic Culture - Preliminary Abdomen 03/29/23 15:40 Gram Stain - Final Abdomen Wound Culture - Final Enterobacter aerogenes Strep agalactiae - (group b) Assessment and Plan (1) Abscess of groin, right Current Visit: Yes Status: Acute Code(s): L02.214 - CUTANEOUS ABSCESS OF GROIN SNOMED Code(s): 29925154 Plan: 1-patient with area of swelling and redness to the lower abdominal area with some purulent drainage likely related to MRSA skin soft tissue infection as the patient had history of MRSA infection 2local culture has been finalized with Enterobacter and Streptococcus , 3-The patient status post surgical drainage of the complex right groin and suprapubic abscess while cultures are currently pending we will keep the patient on cefepime while waiting for those culture to be finalized to determine her discharge antibiotics Dictation was produced using [employer] dictation software. please excuse any grammatical, word or spelling errors. Time with Patient: Less than 30
[2023-04-02 18:12] LABS: Glucose,Whole Blood 277 mg/dL (70-110)
[2023-04-02] MEDS: ATORVASTATIN 80 MG TAB PO SCH (19:28)
[2023-04-02 21:14] LABS: Glucose,Whole Blood 278 mg/dL (70-110)
[2023-04-03] MEDS: SODIUM CHLORIDE 0.9% 1,000 ML IV SCH ×4 (01:24→23:11)
[2023-04-03] MEDS: HYDROmorphone 1 MG/ML 1 ML SYRINGE IVP PRN ×3 (02:24→09:15)
--- NOTE | 2023-04-03 02:49 | PN ---
PROGRESS NOTE DATE OF SERVICE: 04/02/2023 CHIEF COMPLAINT: Right groin abscess. HISTORY OF PRESENT ILLNESS: This lady is doing a little bit better. Blood sugars are coming down. Right groin was drained last night. PHYSICAL EXAMINATION: CHEST: Clear. CARDIAC: Normal. ABDOMEN: Soft, nontender. VITAL SIGNS: Normal. IMPRESSION: 1. Right groin abscess. 2. Obesity. 3. Poorly controlled diabetes mellitus. PLAN: Continue to monitor blood sugars closely while her groin will be followed by Surgery. MMODL / IJN: [id number] /
[2023-04-03] MEDS: CEFEPIME 2 GM in SODIUM CHLORIDE 0.9% 100 ML IVPB SCH ×3 (04:39→21:00)
[2023-04-03 06:08] LABS: Glucose,Whole Blood 304 mg/dL (70-110)
[2023-04-03] MEDS: INSULIN DETEMIR (LEVEMIR) 100 UNIT/ML SYR SQ SCH (06:15)
[2023-04-03] MEDS: INSULIN ASPART (NovoLOG) 100 UNIT/ML VIAL SQ SCH ×7 (06:19→21:13)
[2023-04-03] MEDS: ALBUTEROL NEBULIZED 2.5 MG/3 ML INHALATION SCH ×4 (08:27→21:00)
[2023-04-03] MEDS: PANTOPRAZOLE 40 MG/10 ML VIAL IV SCH (08:40)
[2023-04-03] MEDS: ONDANSETRON 4 MG/2 ML VIAL IVP PRN ×2 (08:40→15:02)
[2023-04-03] MEDS: amLODIPine 10 MG TAB PO SCH (09:14)
[2023-04-03] MEDS: hydrALAZINE HCL 25 MG TAB PO SCH ×2 (09:15→21:00)
[2023-04-03] MEDS: lisinopriL 20 MG TAB PO SCH (09:15)
[2023-04-03] MEDS: metFORMIN 500 MG TAB PO SCH (09:15)
--- NOTE | 2023-04-03 09:32 | CDI ---
Documentation Clarification Form Date: 04/03/2023 09:31:44 AM From: Laurie Kline RN, CCDS Phone: [phone] Admit Date: 03/28/2023 02:08:00 PM Patient Name: Dayna Le Visit Number: [id number] Discharge Date: ATTENTION: The Clinical Documentation Specialists (CDI) and [facility] Coding Staff appreciate your assistance in clarifying documentation. Please respond to the clarification below the line at the bottom and electronically sign. The CDI & [facility] Coding staff will review the response and follow-up if needed. Please note: Queries are made part of the Legal Health Record. If you have any questions, please contact the author of this message via ITS. Dr. Mell Mcfarland Cellulitis is documented in the ID Consult starting on 03/29/23. Additional clarification regarding the type of cellulitis is requested. History/risk factors: Diabetes Mellitus (IDDM type II) GERD/Reflux, Hyperlipidemia, Hypertension, Former smoker, Secondhand smoke exposure, Vaper. Clinical Indicators: 52-year-old female present to ED with elevated blood sugar. She was noticed to have swelling redness and some drainage to the right lower abdominal/mons pubis area concerning for abscess and cellulitis. 03/28 VS: 148/80 63 18 98.6 96 % RA 03/28 WBC 10.9 Glucose 547, Acetone: Negative Hemoglobin A1c is 15. Treatment: Cardiac/Telemetry monitoring Vancomycin HCL 1,750 MG IVPB Once (PTD) 03/29-03/31 Cefepime HCL 2 GM IVPB Q HRS 03/31-04/03 .9 NS @ 130 HR 03/28-04/03 Monitor Blood Sugar ACHS Insulin Sub Q Per orders. 04/01 Excision and Debridement of groin mass with wound vac Please clarify the etiology of the cellulitis, if known: [ ] Cellulitis is a diabetic skin complication. [ ] Cellulitis is not a diabetic skin complication. [ ] Other, please specify: [ ] Unable to determine. (Template Last Revised: April 2022) MTDD
[2023-04-03 12:43] LABS: Glucose,Whole Blood 183 mg/dL (70-110)
[2023-04-03] MEDS: KETOROLAC 15 MG/ML 1 ML VIAL IVP PRN ×2 (15:34→21:04)
[2023-04-03 17:25] LABS: Glucose,Whole Blood 179 mg/dL (70-110)
[2023-04-03] MEDS: ATORVASTATIN 80 MG TAB PO SCH (21:00)
[2023-04-03 21:09] LABS: Glucose,Whole Blood 181 mg/dL (70-110)
--- NOTE | 2023-04-03 22:51 | P.PN ---
Subjective Progress Note Date: 04/03/23 She reports reflux and difficulty with eating. She wants to shower. Nurse reports patient is on scheduled diluadid. Continue vac. Keep dressing dry at all times Objective - Vital Signs Vital signs: Vital Signs Temp 98.9 F 04/03/23 19:36 Pulse 58 L 04/03/23 19:36 Resp 18 04/03/23 19:36 BP 138/72 04/03/23 19:36 Pulse Ox 95 04/03/23 19:36 FiO2 21 03/29/23 08:10 Intake & Output 04/03/23 04/03/23 04/04/23 06:59 18:59 06:59 Intake Total 118 Balance 118 Intake: Oral 118 Other: Voiding Method Toilet Toilet Toilet # Voids 4 6 # Bowel Movements 2 - Labs CBC & Chem 7: 04/02/23 05:42 03/31/23 04:39 Labs: Abnormal Lab Results - Last 24 Hours (Table) 04/03/23 04/03/23 04/03/23 Range/Units 06:07 12:42 17:24 POC Glucose (mg/dL) 304 H 183 H 179 H (70-110) mg/dL 04/03/23 Range/Units 21:06 POC Glucose (mg/dL) 181 H (70-110) mg/dL Microbiology - Last 24 Hours (Table) 04/01/23 17:20 Anaerobic Culture - Preliminary Groin 04/01/23 17:20 Gram Stain - Final Groin Wound Culture - Final 03/29/23 15:40 Anaerobic Culture - Final Abdomen
--- NOTE | 2023-04-04 01:22 | PN ---
PROGRESS NOTE DATE OF SERVICE: 04/03/2023 CHIEF COMPLAINT: Right groin abscess and uncontrolled diabetes. HISTORY OF PRESENT ILLNESS: This lady is doing well, but she is nauseated. This could be due to her analgesic, which was Dilaudid. The nurse made this recommendation and will stop it. PHYSICAL EXAMINATION: CHEST: Clear. CARDIAC: Normal. ABDOMEN: Protuberant, soft and nontender. IMPRESSION: 1. Right groin abscess. 2. Uncontrolled diabetes. 3. Nausea and vomiting. PLAN: 1. Stop Dilaudid. 2. Toradol for pain. 3. Continue to monitor her blood sugars. MMODL / IJN: [id number] /
[2023-04-04] MEDS: KETOROLAC 15 MG/ML 1 ML VIAL IVP PRN ×2 (02:41→08:49)
[2023-04-04] MEDS: CEFEPIME 2 GM in SODIUM CHLORIDE 0.9% 100 ML IVPB SCH ×2 (04:01→12:37)
[2023-04-04 04:55] VITALS: RESP 16
[2023-04-04] MEDS: INSULIN DETEMIR (LEVEMIR) 100 UNIT/ML SYR SQ SCH (05:52)
[2023-04-04 05:53] LABS: Glucose,Whole Blood 299 mg/dL (70-110)
[2023-04-04] MEDS: INSULIN ASPART (NovoLOG) 100 UNIT/ML VIAL SQ SCH ×3 (05:55→12:35)
[2023-04-04 08:07] VITALS: BP 145/85; TEMP 98.4
[2023-04-04] MEDS: ALBUTEROL NEBULIZED 2.5 MG/3 ML INHALATION SCH ×3 (08:12→15:18)
[2023-04-04] MEDS: hydrALAZINE HCL 25 MG TAB PO SCH (08:50)
[2023-04-04] MEDS: PANTOPRAZOLE 40 MG/10 ML VIAL IV SCH (08:50)
[2023-04-04] MEDS: lisinopriL 20 MG TAB PO SCH (08:50)
[2023-04-04] MEDS: metFORMIN 500 MG TAB PO SCH (08:51)
[2023-04-04] MEDS: amLODIPine 10 MG TAB PO SCH (08:51)
[2023-04-04] MEDS: SODIUM CHLORIDE 0.9% 1,000 ML IV SCH (08:52)
[2023-04-04 10:13] VITALS: PULSE 56
[2023-04-04 12:06] LABS: Glucose,Whole Blood 320 mg/dL (70-110)
--- NOTE | 2023-04-04 16:41 | P.PN ---
Subjective Progress Note Date: 04/03/23 Principal diagnosis: Reason for follow-up is right groin/lower abdominal area abscess and cellulitis Patient is a 52-year-old female with a past medical history significa nt for diabetes mellitus hypertension history of MRSA skin soft tissue infection present to the hospital with a right lower abdominal/groin area pain swelling redness concerning for abscess and cellulitis.Patient is status post complex right groin suprapubic abscess drainage by general surgery completed on 07/31/2022. On today's evaluation that is 04/03/2023 the patient remains to be afebrile patient is breathing comfortably room air patient be complaining of pain to the right groin area which is currently covered with a wound VAC denies any chest pain shortness of breath or cough and no diarrhea. Patient did have white count of 7.69 as of 04/02/2023 initial culture with Enterobacter and Streptococcus OR cultures pending Objective - Vital Signs Vital signs: Vital Signs Temp 98.6 F 04/03/23 15:09 Pulse 61 04/03/23 14:37 Resp 16 04/03/23 14:37 BP 122/74 04/03/23 14:37 Pulse Ox 93 L 04/03/23 14:37 FiO2 21 03/29/23 08:10 Intake & Output 04/02/23 04/03/23 04/03/23 18:59 06:59 18:59 Intake Total 236 118 Balance 236 118 Intake: Oral 236 118 Other: Voiding Method Toilet Toilet # Voids 1 4 6 # Bowel Movements 2 - Exam GENERAL DESCRIPTION: Middle-aged female lying in bed in no distress RESPIRATORY SYSTEM: Unlabored breathing , decreased breath sounds at bases HEART: S1 S2 regular rate and rhythm , ABDOMEN: Soft , right lower abdominal/groin area swelling redness has decreased no drainage EXTREMITIES: No edema feet - Labs CBC & Chem 7: 04/02/23 05:42 03/31/23 04:39 Labs: Abnormal Lab Results - Last 24 Hours (Table) 04/02/23 04/02/23 04/03/23 Range/Units 18:10 21:12 06:07 POC Glucose (mg/dL) 277 H 278 H 304 H (70-110) mg/dL 04/03/23 Range/Units 12:42 POC Glucose (mg/dL) 183 H (70-110) mg/dL Microbiology - Last 24 Hours (Table) 03/29/23 15:40 Anaerobic Culture - Final Abdomen 04/01/23 17:20 Gram Stain - Preliminary Groin Wound Culture - Preliminary Assessment and Plan (1) Abscess of groin, right Status: Acute Code(s): L02.214 - CUTANEOUS ABSCESS OF GROIN SNOMED Code(s): 61378036 Plan: 1-patient with area of swelling and redness to the lower abdominal area with some purulent drainage likely related to MRSA skin soft tissue infection as the patient had history of MRSA infection 2local culture has been finalized with Enterobacter and Streptococcus ,However OR cultures are currently pending. 3we will keep the patient on cefepime while waiting for the OR culture to finalize and monitor clinical course closely Dictation was produced using [employer] dictation software. please excuse any grammatical, word or spelling errors. Time with Patient: Less than 30
--- NOTE | 2023-04-04 16:43 | P.PN ---
Subjective Progress Note Date: 04/04/23 Principal diagnosis: Reason for follow-up is right groin/lower abdominal area abscess and cellulitis Patient is a 52-year-old female with a past medical history significa nt for diabetes mellitus hypertension history of MRSA skin soft tissue infection present to the hospital with a right lower abdominal/groin area pain swelling redness concerning for abscess and cellulitis.Patient is status post complex right groin suprapubic abscess drainage by general surgery completed on 07/31/2022. On today's evaluation that is 04/04/2023 the patient continues to be afebrile patient is breathing comfortably room air patient has been fighting with the nursing staff ripping out her IV and asking that she want to leave patient did have a guardian who is requesting the patient to go to the detention for management of her right groin wound VAC patient did not listen to anybody and did not answer any question Patient did have white count of 7.69 as of 04/02/2023 initial culture with Enterobacter and Streptococcus OR cultures pending Objective - Vital Signs Vital signs: Vital Signs Temp 98.4 F 04/04/23 07:00 Pulse 62 04/04/23 08:20 Resp 16 04/04/23 08:00 BP 145/85 04/04/23 07:00 Pulse Ox 98 04/04/23 08:14 FiO2 21 03/29/23 08:10 Intake & Output 04/03/23 04/04/23 04/04/23 18:59 06:59 18:59 Intake Total 118 Balance 118 Intake: Oral 118 Other: Voiding Method Toilet Toilet Toilet # Voids 6 3 # Bowel Movements 2 - Exam GENERAL DESCRIPTION: Middle-aged female lying in bed in no distress RESPIRATORY SYSTEM: Unlabored breathing , decreased breath sounds at bases HEART: S1 S2 regular rate and rhythm , ABDOMEN: Soft , right lower abdominal/groin area swelling redness has decreased no drainage EXTREMITIES: No edema feet - Labs CBC & Chem 7: 04/02/23 05:42 03/31/23 04:39 Labs: Abnormal Lab Results - Last 24 Hours (Table) 04/03/23 04/03/23 04/04/23 Range/Units 17:24 21:06 05:51 POC Glucose (mg/dL) 179 H 181 H 299 H (70-110) mg/dL 04/04/23 Range/Units 12:04 POC Glucose (mg/dL) 320 H (70-110) mg/dL Microbiology - Last 24 Hours (Table) 04/01/23 17:20 Anaerobic Culture - Preliminary Groin 04/01/23 17:20 Gram Stain - Final Groin Wound Culture - Final 03/29/23 15:40 Anaerobic Culture - Final Abdomen Assessment and Plan (1) Abscess of groin, right Status: Acute Code(s): L02.214 - CUTANEOUS ABSCESS OF GROIN SNOMED Code(s): 58231665 Plan: 1-patient with area of swelling and redness to the lower abdominal area with some purulent drainage likely related to MRSA skin soft tissue infection as the patient had history of MRSA infection 2local culture has been finalized with Enterobacter and Streptococcus ,with OR cultures are currently pending. 3patient has been advised to stay in the hospital and go to the detention as she will benefit from continuation of IV cefepime and local wound care with a wound VAC however the patient continued to threaten nursing staff and did not listen Dictation was produced using [employer] dictation software. please excuse any grammatical, word or spelling errors. Time with Patient: Less than 30
[2023-04-04] MEDS ORDERED: AMOXIC-POT CLAV 875-125MG 1 EACH TAB PO SCH (21:00)
--- NOTE | 2023-04-05 03:13 | DS ---
DISCHARGE SUMMARY CHIEF COMPLAINTS: Uncontrolled diabetes and right groin abscess. HISTORY OF PRESENT ILLNESS: Another recent admission for this 52-year-old obese white noncompliant diabetic. She never has taken care of herself. She does not follow up in the office or manage her diabetes. She came back in this time now with an infection in the right groin. COURSE IN THE HOSPITAL: After she was admitted, she was placed on bedrest, started on intravenous fluids, and she was seen by surgery. The area on the right groin wound up having to be incised and drained. The entire hospitalization was spent in trying to manage her diabetes as well. She developed nausea and vomiting and it was thought this was due to the analgesic that she was getting which was Dilaudid. This was stopped and the vomiting stopped. It was felt that she could go home on and she will go home on usual activity and recommended medications. She will be seen in the office in several days, if she shows up. FINAL DIAGNOSES: 1. Abscess of the right groin. 2. Uncontrolled diabetes mellitus. 3. Obesity. 4. Analgesic abuse. OPERATIONS: Incision and drainage of abscess. CONSULTATION: Surgery, she is improved. MMODL / IJN: [id number] /
== END 2023-04-04 16:20 | disposition home or self-care (01) | DRG 580 ==
LOC: EC 09:32 → 6NMEDSUR 14:07 → OBSVTOIN 14:08 → 6NMEDSUR 15:01
PROVIDERS: ADMIT Family Medicine; ATTEND Family Medicine
PROC: 0JBC3ZZ Excision of Pelvic Region Subcutaneous Tissue and Fascia, Percutaneous Approach (ICD-10-PCS; principal; 2023-04-01 12:42)
DX: L02.214 Cutaneous abscess of groin (principal); E87.1 Hypo-osmolality and hyponatremia; K86.1 Other chronic pancreatitis; Z68.41 Body mass index [BMI] 40.0-44.9, adult; Z20.822 Contact with and (suspected) exposure to COVID-19; K21.9 Gastro-esophageal reflux disease without esophagitis; B95.62 Methicillin resistant Staphylococcus aureus infection as the cause of diseases classified elsewhere; E11.65 Type 2 diabetes mellitus with hyperglycemia; E66.01 Morbid (severe) obesity due to excess calories; I10 Essential (primary) hypertension; Z87.891 Personal history of nicotine dependence; Z79.4 Long term (current) use of insulin; E86.0 Dehydration; R78.1 Finding of opiate drug in blood; Z91.199 Patient's noncompliance with other medical treatment and regimen due to unspecified reason; E66.9 Obesity, unspecified; E78.1 Pure hyperglyceridemia; F55.8 Abuse of other non-psychoactive substances; J45.909 Unspecified asthma, uncomplicated; Z79.84 Long term (current) use of oral hypoglycemic drugs; Z77.22 Contact with and (suspected) exposure to environmental tobacco smoke (acute) (chronic); Z79.899 Other long term (current) drug therapy; Z86.14 Personal history of Methicillin resistant Staphylococcus aureus infection; Z88.1 Allergy status to other antibiotic agents
CPT/HCPCS: 36415; 71045; 80048; 80053; 80061; 81001; 82009; 82803; 83036; 83721; 83735; 84100; 84484; 85025; 87070; 87075; 87077; 87186; 87205; 87636; 88304; 94640; 94760; 96374; 99285

== ENCOUNTER 2023-04-14 00:41 | Inpatient (IN) | payer MEDICARE, OTHER ==
[2023-04-14] MEDS: SODIUM CHLORIDE 0.9% 1,000 ML IV ONE (02:44)
[2023-04-14 03:36] LABS: Anisocytosis Slight; Basophils # (A) 0.1 k/uL (0-0.2); Basophils % (A) 1 %; Eosinophils # (A) 0.2 k/uL (0-0.7); Eosinophils % (A) 2 %; HCT 39.1 % (34.0-46.0); HGB 13.1 gm/dL (11.4-16.0); Lymphocytes # (A) 3.2 k/uL (1.0-4.8); Lymphocytes % (A) 27 %; MCH 26.9 pg (25.0-35.0); MCHC 33.5 g/dL (31.0-37.0); MCV 80.3 fL (80.0-100.0); Mean Platelet Volume 7.5; Microcytosis Slight; Monocytes # (A) 0.5 k/uL (0-1.0); Monocytes % (A) 4 %; Neutrophils # (A) 7.8 k/uL (1.3-7.7); Neutrophils % (A) 66 %; Platelet Count 527 k/uL (150-450); RBC 4.87 m/uL (3.80-5.40); RDW 16.3 % (11.5-15.5); WBC 11.9 k/uL (3.8-10.6)
[2023-04-14] MEDS: KETOROLAC 15 MG/ML 1 ML VIAL IVP STA (03:41)
[2023-04-14 03:58] LABS: ALT 22 U/L (4-34); AST 21 U/L (14-36); African American GFR (CKD) >90 (>60 ml/min/1.73 sqM); Albumin 3.9 g/dL (3.5-5.0); Alkaline Phosphatase 185 U/L (38-126); Anion Gap 14 mmol/L; Blood Urea Nitrogen 19 mg/dL (7-17); Calcium 9.2 mg/dL (8.4-10.2); Carbon Dioxide 21 mmol/L (22-30); Chloride 93 mmol/L (98-107); Non-African American GFR(CKD) >90 (>60 ml/min/1.73 sqM); Potassium 4.6 mmol/L (3.5-5.1); Sodium 128 mmol/L (137-145); Total Bilirubin 0.5 mg/dL (0.2-1.3); Total Protein 7.1 g/dL (6.3-8.2)
[2023-04-14 04:16] LABS: Glucose 534 mg/dL (74-99)
--- NOTE | 2023-04-14 04:21 | ED ---
Abdominal Pain HPI - General Chief Complaint: Abdominal Pain Stated Complaint: Not Feeling Well Time Seen by Provider: 04/14/23 02:16 Source: patient Mode of arrival: EMS Limitations: no limitations - History of Present Illness Initial Comments: This is a 52-year-old female well known to our ER presenting with chief complaint of worsening pain to the right groin. History of diabetes and hyperglycemia due to medication noncompliance. Patient had an abscess surgically drained from the right-sided groin on 04/01. She is currently on Augmentin. She notes increased redness and swelling. She also admits to body aches and nausea. Patient still has a Adelaide catheter in place. She tells me that wound care has come to her home but is an unreliable historian. - Related Data Home Medications Medication Instructions Recorded Confirmed Atorvastatin [Lipitor] 80 mg PO HS 06/25/19 03/28/23 lisinopriL 40 mg PO DAILY 09/24/20 03/28/23 traZODone HCL 50 mg PO HS PRN 01/11/21 03/28/23 Ergocalciferol (Vitamin D2) 1,250 mcg PO TU 03/03/21 03/28/23 [Drisdol (50,000 Iu)] Esomeprazole Magnesium [NexIUM] 20 mg PO DAILY 01/30/22 03/28/23 INSULIN ASPART (NovoLOG) [NovoLOG 20 unit SQ AC-TID 11/26/22 03/28/23 (formulary)] Insulin Detemir (Levemir) [Levemir] 90 unit SQ DAILY 11/26/22 03/28/23 Albuterol Inhaler [Ventolin Hfa 2 puff INHALATION RT-QID 03/01/23 03/28/23 Inhaler] Previous Rx's Medication Instructions Recorded amLODIPine [Norvasc] 10 mg PO DAILY #30 tab 03/11/23 hydrALAZINE HCL [Apresoline] 25 mg PO BID #60 tab 03/11/23 Amoxic-Pot Clav 875-125Mg 1 each PO Q12HR #20 tab 04/04/23 [Augmentin 875-125] Allergies Allergy/AdvReac Type Severity Reaction Status Date / Time levofloxacin [From Levaquin] Allergy Rash/Hives Verified 03/28/23 12:42 Review of Systems ROS Statement: Those systems with pertinent positive or pertinent negative responses have been documented in the HPI. ROS Other: All systems not noted in ROS Statement are negative. Past Medical History Past Medical History: Diabetes Mellitus, GERD/Reflux, Hyperlipidemia, Hypertension, Syncope Additional Past Medical History / Comment(s): Pt recently admitted to [facility] on 07/21/21 with uncontrolled IDDM and hyperkalemia. Other hx: Recurrent pancreatitis, hypertriglyceridemia, elevated lipase, IDDM type II, UTI, chronic low back pain, bulging discs, dental abscesses in past. History of Any Multi-Drug Resistant Organisms: MRSA Date of last positivie culture/infection: 03/01/23 MDRO Source:: Abdomen Past Surgical History: Tubal Ligation Additional Past Surgical History / Comment(s): Age 7 had VSD repair, Past Anesthesia/Blood Transfusion Reactions: No Reported Reaction Past Psychological History: No Psychological Hx Reported Smoking Status: Former smoker, Second hand smoke exposure, Vaper Past Alcohol Use History: None Reported Past Drug Use History: None Reported - Past Family History Mother Family Medical History: No Reported History Additional Family Medical History / Comment(s): Mother was healthy. She is , pt cannot recall cause of . Father Family Medical History: Pneumonia Additional Family Medical History / Comment(s): Father at the age of 67yrs from pneumonia General Exam Limitations: no limitations General appearance: alert, in no apparent distress Head exam: Present: atraumatic, normocephalic Eye exam: Present: normal appearance Neck exam: Present: normal inspection Respiratory exam: Present: normal lung sounds bilaterally. Absent: respiratory distress, wheezes, rales, rhonchi, stridor Cardiovascular Exam: Present: regular rate, normal rhythm, normal heart sounds. Absent: systolic murmur, diastolic murmur, rubs, gallop, clicks Neurological exam: Present: alert, oriented X3 Psychiatric exam: Present: normal affect, normal mood Skin exam: Present: erythema Course Vital Signs 04/14/23 04/14/23 01:02 04:36 Temperature 98.7 F Pulse Rate 87 65 Respiratory 18 18 Rate Blood Pressure 139/77 O2 Sat by Pulse 98 94 L Oximetry Medical Decision Making - Medical Decision Making Was pt. sent in by a medical professional or institution (, PA, CASKET LINER, urgent ca re, hospital, or half-way...) When possible be specific @ -No Did you speak to anyone other than the patient for history (EMS, parent, family, police, friend...)? What history was obtained from this source @ -No Did you review nursing and triage notes (agree or disagree)? Why? @ -I reviewed and agree with nursing and triage notes Were old charts reviewed (outside hosp., previous admission, EMS record, old EKG, old radiological studies, urgent care reports/EKG's, half-way records)? Report findings @ -No old charts were reviewed Differential Diagnosis (chest pain, altered mental status, abdominal pain women, abdominal pain men, vaginal bleeding, weakness, fever, dyspnea, syncope, headache, dizziness, GI bleed, back pain, seizure, CVA, palpatations, mental health, musculoskeletal)? @ -not applicable EKG interpreted by me (3pts min.). @ -As above X-rays interpreted by me (1pt min.). @ -None done CT interpreted by me (1pt min.). @ -None done U/S interpreted by me (1pt. min.). @ -None done What testing was considered but not performed or refused? (CT, X-rays, U/S, labs)? Why? @ -None What meds were considered but not given or refused? Why? @ -None Did you discuss the management of the patient with other professionals (professionals i.e. , PA, CASKET LINER, lab, RT, psych nurse, high school social studies tutor, patient account liaison, teacher, special forces warrant officer, case work aide)? Give summary @ -My attending Dr. Tobin spoke with Dr. Cerda for admission Was smoking cessation discussed for >3mins.? @ -No Was critical care preformed (if so, how long)? @ -No Were there social determinants of health that impacted care today? How? (Homelessness, low income, unemployed, alcoholism, drug addiction, transportation, low edu. Level, literacy, decrease access to med. care, mcc, rehab)? @ -No Was there de-escalation of care discussed even if they declined (Discuss DNR or withdrawal of care, Hospice)? DNR status @ -No What co-morbidities impacted this encounter? (DM, HTN, Smoking, COPD, CAD, Cancer, CVA, ARF, Chemo, Hep., AIDS, mental health diagnosis, sleep apnea, morbid obesity)? @ -Diabetes with medication noncompliance Was patient admitted / discharged? Hospital course, mention meds given and route, prescriptions, significant lab abnormalities, going to OR and other pertinent info. @ -52-year-old female history of diabetes presenting with chief complaint of "I don't feel good". She notes that she is having increased pain and swelling to the site where she had a groin abscess removed on 04/01. She is supposed to be on Augmentin. She states she is receiving home wound care but is a poor historian. Adelaide catheter is still in place. Glucose 534 and lactic 3.0. WBC 11.9. Patient started on vancomycin. Will be admitted for worsening infection and hyperglycemia. I discussed this case with my attending Dr. Tobin. Undiagnosed new problem with uncertain prognosis? @ -No Drug Therapy requiring intensive monitoring for toxicity (Heparin, Nitro, Insulin, Cardizem)? @ -No Were any procedures done? @ -No Diagnosis/symptom? @ -Cellulitis, hyperglycemia Acute, or Chronic, or Acute on Chronic? @ -Acute Uncomplicated (without systemic symptoms) or Complicated (systemic symptoms)? @ -Complicated Side effects of treatment? @ -No Exacerbation, Progression, or Severe Exacerbation? @ -No Poses a threat to life or bodily function? How? (Chest pain, USA, MA, pneumonia, PE, COPD, DKA, ARF, appy, cholecystitis, CVA, Diverticulitis, Homicidal, Suicidal, threat to staff... and all critical care pts) @ -yes - Lab Data Result diagrams: 04/14/23 02:38 04/14/23 02:38 Lab Results 04/14/23 04/14/23 04/14/23 Range/Units 02:38 02:38 02:38 WBC 11.9 H (3.8-10.6) k/uL RBC 4.87 (3.80-5.40) m/uL Hgb 13.1 (11.4-16.0) gm/dL Hct 39.1 (34.0-46.0) % MCV 80.3 (80.0-100.0) fL MCH 26.9 (25.0-35.0) pg MCHC 33.5 (31.0-37.0) g/dL RDW 16.3 H (11.5-15.5) % Plt Count 527 H (150-450) k/uL MPV 7.5 Neutrophils % 66 % Lymphocytes % 27 % Monocytes % 4 % Eosinophils % 2 % Basophils % 1 % Neutrophils # 7.8 H (1.3-7.7) k/uL Lymphocytes # 3.2 (1.0-4.8) k/uL Monocytes # 0.5 (0-1.0) k/uL Eosinophils # 0.2 (0-0.7) k/uL Basophils # 0.1 (0-0.2) k/uL Anisocytosis Slight Microcytosis Slight Sodium 128 L (137-145) mmol/L Potassium 4.6 (3.5-5.1) mmol/L Chloride 93 L (98-107) mmol/L Carbon Dioxide 21 L (22-30) mmol/L Anion Gap 14 mmol/L BUN 19 H (7-17) mg/dL Creatinine 0.65 (0.52-1.04) mg/dL Est GFR (CKD-EPI)AfAm >90 (>60 ml/min/1.73 sqM) Est GFR (CKD-EPI)NonAf >90 (>60 ml/min/1.73 sqM) Glucose 534 H* (74-99) mg/dL Plasma Lactic Acid Travon 3.0 H* (0.7-2.0) mmol/L Calcium 9.2 (8.4-10.2) mg/dL Total Bilirubin 0.5 (0.2-1.3) mg/dL AST 21 (14-36) U/L ALT 22 (4-34) U/L Alkaline Phosphatase 185 H (38-126) U/L Total Protein 7.1 (6.3-8.2) g/dL Albumin 3.9 (3.5-5.0) g/dL Influenza Type A (PCR) (Not Detectd) Influenza Type B (PCR) (Not Detectd) RSV (PCR) (Not Detectd) SARS-CoV-2 (PCR) (Not Detectd) 04/14/23 Range/Units 02:38 WBC (3.8-10.6) k/uL RBC (3.80-5.40) m/uL Hgb (11.4-16.0) gm/dL Hct (34.0-46.0) % MCV (80.0-100.0) fL MCH (25.0-35.0) pg MCHC (31.0-37.0) g/dL RDW (11.5-15.5) % Plt Count (150-450) k/uL MPV Neutrophils % % Lymphocytes % % Monocytes % % Eosinophils % % Basophils % % Neutrophils # (1.3-7.7) k/uL Lymphocytes # (1.0-4.8) k/uL Monocytes # (0-1.0) k/uL Eosinophils # (0-0.7) k/uL Basophils # (0-0.2) k/uL Anisocytosis Microcytosis Sodium (137-145) mmol/L Potassium (3.5-5.1) mmol/L Chloride (98-107) mmol/L Carbon Dioxide (22-30) mmol/L Anion Gap mmol/L BUN (7-17) mg/dL Creatinine (0.52-1.04) mg/dL Est GFR (CKD-EPI)AfAm (>60 ml/min/1.73 sqM) Est GFR (CKD-EPI)NonAf (>60 ml/min/1.73 sqM) Glucose (74-99) mg/dL Plasma Lactic Acid Travon (0.7-2.0) mmol/L Calcium (8.4-10.2) mg/dL Total Bilirubin (0.2-1.3) mg/dL AST (14-36) U/L ALT (4-34) U/L Alkaline Phosphatase (38-126) U/L Total Protein (6.3-8.2) g/dL Albumin (3.5-5.0) g/dL Influenza Type A (PCR) Not Detected (Not Detectd) Influenza Type B (PCR) Not Detected (Not Detectd) RSV (PCR) Not Detected (Not Detectd) SARS-CoV-2 (PCR) Not Detected (Not Detectd) Disposition Clinical Impression: Cellulitis, Hyperglycemia Disposition: ADMITTED IP TO THIS HOSP Condition: Fair Referrals: Guillermo Cerda MD [Primary Care Provider] - 1-2 days Time of Disposition: 04:37
[2023-04-14] MEDS: INSULIN REGULAR 100 UNIT/ML VIAL (IV) IV ONE (04:27)
[2023-04-14] MEDS ORDERED: VANCOMYCIN IV PER PHARMACY 1 EACH MISC MISCELLANE PRN (04:28)
[2023-04-14] MEDS ORDERED: NALOXONE 0.4 MG/ML 1 ML VIAL IV PRN (04:30)
[2023-04-14 04:50] LABS: Appearance,Urine Clear (Clear); Bilirubin,Urine Negative (Negative); Blood,Urine Negative (Negative); Color,Urine Colorless; Glucose,Urine (UA) 4+ (Negative); Ketones,Urine Negative (Negative); Leukocyte Esterase,Urine Negative (Negative); Mucus,Urine Rare /hpf; Nitrite,Urine Negative (Negative); Protein,Urine 1+ (Negative); RBC,Urine <1 /hpf (0-5); Squamous Epithelial Cell,Urine 3 /hpf (0-4); Urobilinogen,Urine <2.0 mg/dL (<2.0); WBC,Urine <1 /hpf (0-5)
[2023-04-14] MEDS: SODIUM CHLORIDE 0.9% 1,000 ML IV SCH (05:04)
[2023-04-14 05:20] LABS: Glucose,Whole Blood 330 mg/dL (70-110)
[2023-04-14] MEDS: VANCOMYCIN 1,500 MG in SODIUM CHLORIDE 0.9% 500 ML 500 ML IVPB ONE (05:41)
[2023-04-14] MEDS: KETOROLAC 15 MG/ML 1 ML VIAL IVP PRN (09:28)
[2023-04-14 09:29] LABS: Glucose,Whole Blood 332 mg/dL (70-110)
--- NOTE | 2023-04-14 11:14 | P.GSCN ---
History of Present Illness Consult date: 04/14/23 Reason for Consult: Right groin pain History of present illness: This a 52-year-old female who underwent incision and drainage of right groin a bscess approximately 2 weeks ago. Patient's she had increased pain site. She's been admitted to the medical service for pain and possible cellulitis. Past Medical History Past Medical History: Diabetes Mellitus, GERD/Reflux, Hyperlipidemia, Hypertension, Syncope Additional Past Medical History / Comment(s): Pt recently admitted to [facility] on 07/21/21 with uncontrolled IDDM and hyperkalemia. Other hx: Recurrent pancreatitis, hypertriglyceridemia, elevated lipase, IDDM type II, UTI, chronic low back pain, bulging discs, dental abscesses in past. History of Any Multi-Drug Resistant Organisms: MRSA Year Discovered:: 03/01/23 MDRO Source:: Abdomen Past Surgical History: Tubal Ligation Additional Past Surgical History / Comment(s): Age 7 had VSD repair, Past Anesthesia/Blood Transfusion Reactions: No Reported Reaction Past Psychological History: No Psychological Hx Reported Smoking Status: Former smoker, Second hand smoke exposure, Vaper Past Alcohol Use History: None Reported Past Drug Use History: None Reported - Past Family History Mother Family Medical History: No Reported History Additional Family Medical History / Comment(s): Mother was healthy. She is , pt cannot recall cause of . Father Family Medical History: Pneumonia Additional Family Medical History / Comment(s): Father at the age of 67yrs from pneumonia Medications and Allergies Home Medications Medication Instructions Recorded Confirmed Type Atorvastatin [Lipitor] 80 mg PO HS 06/25/19 03/28/23 History lisinopriL 40 mg PO DAILY 09/24/20 03/28/23 History traZODone HCL 50 mg PO HS PRN 01/11/21 03/28/23 History Ergocalciferol (Vitamin D2) 1,250 mcg PO TU 03/03/21 03/28/23 History [Drisdol (50,000 Iu)] Esomeprazole Magnesium [NexIUM] 20 mg PO DAILY 01/30/22 03/28/23 History INSULIN ASPART (NovoLOG) [NovoLOG 20 unit SQ AC-TID 11/26/22 03/28/23 History (formulary)] Insulin Detemir (Levemir) [Levemir] 90 unit SQ DAILY 11/26/22 03/28/23 History Albuterol Inhaler [Ventolin Hfa 2 puff INHALATION RT-QID 03/01/23 03/28/23 History Inhaler] amLODIPine [Norvasc] 10 mg PO DAILY #30 tab 03/11/23 03/28/23 Rx hydrALAZINE HCL [Apresoline] 25 mg PO BID #60 tab 03/11/23 03/28/23 Rx Amoxic-Pot Clav 875-125Mg 1 each PO Q12HR #20 tab 04/04/23 Rx [Augmentin 875-125] Allergies Allergy/AdvReac Type Severity Reaction Status Date / Time levofloxacin [From Levaquin] Allergy Rash/Hives Verified 03/28/23 12:42 Surgical - Exam Vital Signs Temp Pulse Resp BP Pulse Ox 98.7 F 87 18 139/77 98 04/14/23 01:02 04/14/23 01:02 04/14/23 01:02 04/14/23 01:02 04/14/23 01:02 - General well developed, well nourished, no distress - Eyes PERRL - ENT normal pinna - Neck no masses - Integumentary Right groin has a healing incision. There is a Adelaide drain pleasant. There is no significant inflammatory change. Results - Labs 04/14/23 02:38 04/14/23 02:38 Abnormal Lab Results - Last 24 Hours (Table) 04/14/23 04/14/23 04/14/23 Range/Units 02:38 02:38 02:38 WBC 11.9 H (3.8-10.6) k/uL RDW 16.3 H (11.5-15.5) % Plt Count 527 H (150-450) k/uL Neutrophils # 7.8 H (1.3-7.7) k/uL Sodium 128 L (137-145) mmol/L Chloride 93 L (98-107) mmol/L Carbon Dioxide 21 L (22-30) mmol/L BUN 19 H (7-17) mg/dL Glucose 534 H* (74-99) mg/dL POC Glucose (mg/dL) (70-110) mg/dL Plasma Lactic Acid Travon 3.0 H* (0.7-2.0) mmol/L Alkaline Phosphatase 185 H (38-126) U/L Urine Protein (Negative) Urine Glucose (UA) (Negative) Urine Mucus (None) /hpf 04/14/23 04/14/23 04/14/23 Range/Units 04:29 05:18 09:27 WBC (3.8-10.6) k/uL RDW (11.5-15.5) % Plt Count (150-450) k/uL Neutrophils # (1.3-7.7) k/uL Sodium (137-145) mmol/L Chloride (98-107) mmol/L Carbon Dioxide (22-30) mmol/L BUN (7-17) mg/dL Glucose (74-99) mg/dL POC Glucose (mg/dL) 330 H 332 H (70-110) mg/dL Plasma Lactic Acid Travon (0.7-2.0) mmol/L Alkaline Phosphatase (38-126) U/L Urine Protein 1+ H (Negative) Urine Glucose (UA) 4+ H (Negative) Urine Mucus Rare H (None) /hpf Diabetes panel 04/14/23 Range/Units 02:38 Sodium 128 L (137-145) mmol/L Potassium 4.6 (3.5-5.1) mmol/L Chloride 93 L (98-107) mmol/L Carbon Dioxide 21 L (22-30) mmol/L BUN 19 H (7-17) mg/dL Creatinine 0.65 (0.52-1.04) mg/dL Glucose 534 H* (74-99) mg/dL Calcium 9.2 (8.4-10.2) mg/dL AST 21 (14-36) U/L ALT 22 (4-34) U/L Alkaline Phosphatase 185 H (38-126) U/L Total Protein 7.1 (6.3-8.2) g/dL Albumin 3.9 (3.5-5.0) g/dL Calcium panel 04/14/23 Range/Units 02:38 Calcium 9.2 (8.4-10.2) mg/dL Albumin 3.9 (3.5-5.0) g/dL Pituitary panel 04/14/23 Range/Units 02:38 Sodium 128 L (137-145) mmol/L Potassium 4.6 (3.5-5.1) mmol/L Chloride 93 L (98-107) mmol/L Carbon Dioxide 21 L (22-30) mmol/L BUN 19 H (7-17) mg/dL Creatinine 0.65 (0.52-1.04) mg/dL Glucose 534 H* (74-99) mg/dL Calcium 9.2 (8.4-10.2) mg/dL Adrenal panel 04/14/23 Range/Units 02:38 Sodium 128 L (137-145) mmol/L Potassium 4.6 (3.5-5.1) mmol/L Chloride 93 L (98-107) mmol/L Carbon Dioxide 21 L (22-30) mmol/L BUN 19 H (7-17) mg/dL Creatinine 0.65 (0.52-1.04) mg/dL Glucose 534 H* (74-99) mg/dL Calcium 9.2 (8.4-10.2) mg/dL Total Bilirubin 0.5 (0.2-1.3) mg/dL AST 21 (14-36) U/L ALT 22 (4-34) U/L Alkaline Phosphatase 185 H (38-126) U/L Total Protein 7.1 (6.3-8.2) g/dL Albumin 3.9 (3.5-5.0) g/dL Assessment and Plan Assessment: Patient has a healing wound on her right groin. She'll receive supportive care. No surgical intervention is planned.
[2023-04-14] MEDS ORDERED: DEXTROSE 50% SYRINGE 50 ML IVP PRN ×2 (12:52)
[2023-04-14 13:15] LABS: Glucose,Whole Blood 459 mg/dL (70-110)
[2023-04-14] MEDS: INSULIN DETEMIR (LEVEMIR) 100 UNIT/ML SYR SQ SCH (13:50)
[2023-04-14] MEDS: lisinopriL 20 MG TAB PO SCH (16:33)
[2023-04-14] MEDS: hydrALAZINE HCL 25 MG TAB PO SCH (16:33)
[2023-04-14] MEDS: amLODIPine 10 MG TAB PO SCH (16:34)
[2023-04-14 17:09] LABS: Glucose,Whole Blood 412 mg/dL (70-110)
[2023-04-14] MEDS ORDERED: INSULIN ASPART (NovoLOG) 100 UNIT/ML VIAL SQ SCH (17:30)
[2023-04-14] MEDS: INSULIN ASPART (NovoLOG) 100 UNIT/ML VIAL SQ SCH (17:30)
[2023-04-14] MEDS: ACETAMINOPHEN TAB 325 MG TAB PO PRN (20:03)
[2023-04-14] MEDS: traZODone HCL 50 MG TAB PO PRN (20:04)
[2023-04-14] MEDS: ATORVASTATIN 80 MG TAB PO SCH (20:04)
[2023-04-14 20:26] LABS: Glucose,Whole Blood 291 mg/dL (70-110)
[2023-04-14] MEDS: VANCOMYCIN 1,500 MG in SODIUM CHLORIDE 0.9% 500 ML 500 ML IVPB SCH (20:48)
[2023-04-14] MEDS ORDERED: AMOXIC-POT CLAV 875-125MG 1 EACH TAB PO SCH (21:00)
[2023-04-14] MEDS: ALBUTEROL NEBULIZED 2.5 MG/3 ML INHALATION SCH (21:17)
--- NOTE | 2023-04-15 03:14 | HP ---
HISTORY AND PHYSICAL She is in room 10 in the emergency room. CHIEF COMPLAINT: Right groin . HISTORY OF PRESENT ILLNESS: This is another recent admission for this 52-year-old obese white female. She is in and out of the hospital frequently. She will not take care of herself. She is insulin- dependent diabetic who does not take her insulin. She does not come to the office. She recently was ill with an abscess in her left lower quadrant with was treated successfully. She then came in with an abscess in the right groin. This was opened and drained and she was sent home. Then she came back in because she had increasing pain in the right groin. Her blood sugar in the emergency room was 534. She was once again confronted with the fact that she was not taking her insulin and she admitted it. In the emergency room, white count was 11,900. REVIEW OF SYSTEMS: She denied any other complaints such as fever, chills, nausea, vomiting, abdominal pain, urinary complaints, etc. Past medical history, family history and personal and social histories were all otherwise unremarkable or noncontributory and unchanged from her recent discharge summary. PHYSICAL EXAMINATION: VITAL SIGNS: Normal. HEENT: Head, ears, eyes, nose, mouth and throat were normal. CHEST: Clear. CARDIAC: Revealed sinus rhythm and no murmurs. ABDOMEN: Protuberant, soft, and nontender. There was a drain in the abscess in right groin. EXTREMITIES: Normal. NEUROLOGICAL: Intact. DIAGNOSES: She was admitted to the hospital with diagnoses, 1. Abscess in the right groin. 2. Uncontrolled diabetes mellitus due to the lack of compliance. 3. Obesity. 4. Hypertriglyceridemia. 5. Chronic relapsing pancreatitis secondary to hypertriglyceridemia. PLAN: 1. Bed rest. 2. IV fluids. 3. Surgery consult. 4. Uncontrolled diabetes. MMODL / IJN: [id number] /
[2023-04-15 07:15] LABS: African American GFR (CKD) >90 (>60 ml/min/1.73 sqM); Non-African American GFR(CKD) >90 (>60 ml/min/1.73 sqM)
[2023-04-15 07:36] LABS: Glucose,Whole Blood 224 mg/dL (70-110)
[2023-04-15] MEDS: PANTOPRAZOLE 40 MG TABLET PO SCH (08:25)
[2023-04-15] MEDS: VANCOMYCIN 1,500 MG in SODIUM CHLORIDE 0.9% 500 ML 500 ML IVPB SCH (08:26)
[2023-04-15 09:33] LABS: Anisocytosis Slight; Basophils % (A) 0 %; Eosinophils # (A) 0.3 k/uL (0-0.7); Eosinophils % (A) 3 %; HCT 37.9 % (34.0-46.0); HGB 12.3 gm/dL (11.4-16.0); Lymphocytes % (A) 24 %; MCH 26.6 pg (25.0-35.0); MCHC 32.3 g/dL (31.0-37.0); MCV 82.1 fL (80.0-100.0); Mean Platelet Volume 8.2; Microcytosis Slight; Monocytes # (A) 0.4 k/uL (0-1.0); Monocytes % (A) 5 %; Neutrophils # (A) 5.6 k/uL (1.3-7.7); Neutrophils % (A) 66 %; Platelet Count 452 k/uL (150-450); RBC 4.62 m/uL (3.80-5.40); RDW 16.4 % (11.5-15.5); WBC 8.4 k/uL (3.8-10.6)
[2023-04-15 12:33] LABS: Glucose,Whole Blood 372 mg/dL (70-110)
[2023-04-15 13:32] LABS: Anion Gap 11 mmol/L; Blood Urea Nitrogen 13 mg/dL (7-17); Calcium 8.7 mg/dL (8.4-10.2); Carbon Dioxide 21 mmol/L (22-30); Chloride 105 mmol/L (98-107); Glucose 227 mg/dL (74-99); Potassium 4.4 mmol/L (3.5-5.1); Sodium 137 mmol/L (137-145)
--- NOTE | 2023-04-15 14:06 | P.PN ---
Subjective Progress Note Date: 04/15/23 CHIEF COMPLAINT: Right groin abscess HISTORY OF PRESENT ILLNESS: Patient complained of pain in her right groin that brought her into the hospital. Patient reports that the Tylenol was not helping the pain. Patient reports that she had still been having drainage from the [place] drain. Her blood sugars remain uncontrolled. Last admission patient threatened to leave AGAINST MEDICAL ADVICE and would not go to [facility] as recommended for IV antibiotics and wound VAC management. Patient is noncompliant with her medical care and also noncompliant with her medications and diabetes management. Patient denies any fever chills or sweats. Afebrile. WBC has normalized from 11.9-8.4 glucose 372 PHYSICAL EXAM: VITAL SIGNS: Reviewed GENERAL: Well-developed in no acute distress. HEENT: No sclera icterus. Extraocular movements grossly intact. Moist buccal mucosa. Head is atraumatic, normocephalic. Hears conversational speech. No nasal drainage. NECK: Supple without lymphadenopathy. CHEST: Non-labored respirations and equal bilateral excursions. CARDIOVASCULAR: Palpable 2+ radial pulses. ABDOMEN: Soft. Nondistended. Right groin abscess. Mobile drain in place with purulent drainage. No erythema. Mild induration noted. Minimal tenderness with palpation. Incision is healing MUSCULOSKELETAL: No clubbing or cyanosis. NEUROLOGIC: No focal or lateralizing signs. Cranial nerves II through XII grossly intact. PSYCH: Appropriate affect. Alert and oriented to person, place and time. SKIN: Well perfused. Good skin turgor. ASSESSMENT: 1. Right groin abscess status post incision and drainage on 04/01/2023 2. Uncontrolled diabetes mellitus 3. Leukocytosis improved PLAN: -No surgical intervention planned. This is not a surgical complication -patient is noncompliant with her medical care and is noncompliant with taking her medications -Continue the Mobile drain for now -Antibiotic management per ID service -Continue pain management Physician Dryerman/Woman note has been reviewed by physician. Signing provider agrees with the documented findings, assessment, and plan of care. Please see additional documentation CHIEF COMPLAINT: Right groin abscess HISTORY OF PRESENT ILLNESS: The patient is a 52-year-old female with poorly controlled diabetes who had left AGAINST MEDICAL ADVICE upon a prior hospitalization now returns with drainage from her right groin wound. She has a drain. She reports decreased swelling from the left groin. He is admitted due to hyperglycemia. REVIEW OF ORGAN SYSTEMS: CONSTITUTIONAL: No fevers or chills. No recent weight loss. Morbid obesity, BMI 44.3 CARDIOVASCULAR: Has hyperlipidemia. Has hypertensive heart disease. Has hyperlipidemia. ENDOCRINE: Denies current thyroid disorders. Has diabetes type 2, insulin-dependent, poorly controlled PHYSICAL EXAM: VITALS: Reviewed CONSTITUTIONAL: Well developed and in no acute distress. EYES: Conjuctivae without sclera icterus. Extraocular movements grossly intact. HEAD, EARS, NOSE, THROAT: Moist buccal mucosa. Head is atraumatic, normocephalic. Hears conversational speech. No nasal drainage. RESPIRATORY: Non-labored respirations and equal bilateral excursions. No gross wheezes. CARDIOVASCULAR: Palpable 2+ radial pulses. ABDOMEN: Obese. MUSCULOSKELETAL: No clubbing cyanosis. SKIN: Warm and well perfused with good skin turgor. Right groin [place] drain with minimal seropurulent drainage. No diffuse cellulitis. NEUROLOGIC: Cranial nerves II through XII grossly intact. No focal or lateralizing signs. PSYCH: Appropriate affect. Alert and oriented to person, place and time. Displays appropriate insight. CLINCAL LABS: Reviewed. WBC elevated at 11 point ASSESSMENT: 1. Right groin abscess status post drainage 2. Uncontrolled diabetes type 2, insulin-dependent with hyperglycemia 3. Morbid obesity excess calories, BMI 44.3 4. Hypertensive heart disease 5. Medical noncompliance to care PLAN: 1. The patient presents with actively draining wound which is to be expected 2. Continue IV antibiotics 3. Recommend consistent carbohydrate high protein diet 4. The new drain Objective - Vital Signs Vital signs: Vital Signs Temp 98.2 F 04/15/23 07:29 Pulse 67 04/15/23 08:23 Resp 16 04/15/23 08:00 BP 133/77 04/15/23 07:29 Pulse Ox 98 04/15/23 07:29 FiO2 Intake & Output 04/14/23 04/15/23 04/15/23 18:59 06:59 18:59 Intake Total 990 Balance 990 Weight 102.965 kg Intake: Oral 990 Other: Voiding Method Toilet Toilet # Voids 1 2 - Labs CBC & Chem 7: 04/18/23 06:16 04/19/23 07:18 Labs: Abnormal Lab Results - Last 24 Hours (Table) 04/14/23 04/14/2304/14/24 Range/Units 13:13 17:07 20:24 RDW (11.5-15.5) % Plt Count (150-450) k/uL Creatinine (0.52-1.04) mg/dL POC Glucose (mg/dL) 459 H 412 H 291 H (70-110) mg/dL 04/15/23 04/15/23 04/15/23 Range/Units 06:31 06:31 07:35 RDW 16.4 H (11.5-15.5) % Plt Count 452 H (150-450) k/uL Creatinine 0.47 L (0.52-1.04) mg/dL POC Glucose (mg/dL) 224 H (70-110) mg/dL
[2023-04-15 16:43] LABS: Glucose,Whole Blood 377 mg/dL (70-110)
[2023-04-15] MEDS: CEFEPIME 2 GM in SODIUM CHLORIDE 0.9% 100 ML IVPB SCH (17:32)
[2023-04-15 19:40] LABS: Glucose,Whole Blood 407 mg/dL (70-110)
--- NOTE | 2023-04-15 22:46 | PN ---
PROGRESS NOTE CHIEF COMPLAINT: Uncontrolled diabetes and right groin abscess. HISTORY OF PRESENT ILLNESS: This lady is stable other than some mild discomfort. She has been seen by Surgery and nothing further is planned. Effort now will be to bring her blood sugars under control. PHYSICAL EXAMINATION: CHEST: Clear. CARDIAC: Normal. ABDOMEN: Protuberant. The groin wound is draining well. IMPRESSION: 1. Uncontrolled diabetes. 2. Right groin abscess. PLAN: Increase insulin. Home once blood sugars are improved. MMODL / IJN: [id number] /
--- NOTE | 2023-04-15 23:06 | P.CONS ---
History of Present Illness - Reason for Consult Consult date: 04/15/23 Right groin abscess, antibiotics Requesting physician: Leah Latham - Chief Complaint Right groin pain and swelling x few days - History of Present Illness Patient is a 52-year-old female with a past medical history significant for recurrent skin and soft tissue infection patient was recently admitted to this facility did have a right groin abscess s/p surgical drainage culture positive for Enterobacter and Streptococcus agalactiae patient was treated with cefepime patient subsequently did have a nervous breakdown and was fighting with the nursing staff did have a code red and the patient was subsequent discharged by her primary care physician on oral Augmentin patient now presenting back to the hospital as of yesterday morning concerning for increasing pain to the right groin area along with some drainage the patient still have the [place] drain that was placed on the last admission patient describing the pain to be more of a dull aching to sharp, moderate intensity without any radiation patient has high-grade fever or any chills no nausea vomi ting abdominal pain or any diarrhea on presentation to the hospital the patient was afebrile and no fever has been recorded subsequently patient was not tachycardic hypotensive or hypoxic did have a white count of 11.9 with a left shift creatinine was normal at 0.47 influenza RSV COVID testing was negative urine was negative patient was started on vancomycin infectious disease was consulted for further management of antibiotic therapy Review of Systems Positive point and negatives has been mentioned in the HPI, complete review of systems was performed and all other systems are negative Past Medical History Past Medical History: Diabetes Mellitus, GERD/Reflux, Hyperlipidemia, Hypertension, Syncope Additional Past Medical History / Comment(s): Pt recently admitted to [facility] on 07/21/21 with uncontrolled IDDM and hyperkalemia. Other hx: Recurrent pancreatitis, hypertriglyceridemia, elevated lipase, IDDM type II, UTI, chronic low back pain, bulging discs, dental abscesses in past. History of Any Multi-Drug Resistant Organisms: MRSA Year Discovered:: 03/01/23 MDRO Source:: Abdomen Past Surgical History: Tubal Ligation Additional Past Surgical History / Comment(s): Age 7 had VSD repair, Past Anesthesia/Blood Transfusion Reactions: No Reported Reaction Past Psychological History: No Psychological Hx Reported Additional Psychological History / Comment(s): She uses no assistive devices. She does not drive. She gets to appointments by walking or using the bus system. She has a glucometer at home. Smoking Status: Former smoker, Second hand smoke exposure, Vaper Past Alcohol Use History: None Reported Additional Past Alcohol Use History / Comment(s): Pt started smoking in 2000- pt states she quit smoking February or March of 2021 Past Drug Use History: None Reported - Past Family History Mother Family Medical History: No Reported History Additional Family Medical History / Comment(s): Mother was healthy. She is , pt cannot recall cause of . Father Family Medical History: Pneumonia Additional Family Medical History / Comment(s): Father at the age of 67yrs from pneumonia Medications and Allergies Home Medications Medication Instructions Recorded Confirmed Type Atorvastatin [Lipitor] 80 mg PO HS 06/25/19 04/14/23 History lisinopriL 40 mg PO DAILY 09/24/20 04/14/23 History traZODone HCL 50 mg PO HS PRN 01/11/21 04/14/23 History Ergocalciferol (Vitamin D2) 1,250 mcg PO TU 03/03/21 04/14/23 History [Drisdol (50,000 Iu)] Esomeprazole Magnesium [NexIUM] 20 mg PO DAILY 01/30/22 04/14/23 History INSULIN ASPART (NovoLOG) [NovoLOG 20 unit SQ AC-TID 11/26/22 04/14/23 History (formulary)] Albuterol Inhaler [Ventolin Hfa 2 puff INHALATION RT-QID 03/01/23 04/14/23 History Inhaler] amLODIPine [Norvasc] 10 mg PO DAILY #30 tab 03/11/23 04/14/23 Rx hydrALAZINE HCL [Apresoline] 25 mg PO BID #60 tab 03/11/23 04/14/23 Rx Doxycycline Hyclate 100 mg PO BID 10 Days #20 tab 04/19/23 Rx cefUROXime axetiL [Ceftin] 500 mg PO BID 10 Days #20 tab 04/19/23 Rx Insulin Detemir (Levemir) [Levemir] 130 unit SQ DAILY@0700 #60 each 04/21/23 Rx Allergies Allergy/AdvReac Type Severity Reaction Status Date / Time levofloxacin [From Levaquin] Allergy Rash/Hives Verified 04/14/23 13:59 Physical Exam Vitals: Vital Signs Temp Pulse Pulse Resp BP Pulse Ox 04/15/23 12:31 97.3 F L 60 16 151/87 96 04/15/23 08:23 67 04/15/23 08:14 67 04/15/23 08:00 16 04/15/23 07:29 98.2 F 62 16 133/77 98 04/15/23 02:00 97.4 F L 53 L 16 145/76 97 04/14/23 21:26 68 04/14/23 21:17 64 04/14/23 20:00 64 F L 64 16 128/74 97 Intake and Output 04/15/23 04/15/23 04/15/23 06:59 14:59 22:59 Intake Total 590 Balance 590 Intake: Oral 590 Other: Voiding Method Toilet # Voids 2 GENERAL DESCRIPTION: Middle-aged female lying in bed, no distress. No tachypnea or accessory muscle of respiration use. HEENT: Shows Pallor , no scleral icterus. Oral mucous membrane is dry. No pharyngeal erythema or thrush NECK: Trachea central, no thyromegaly. LUNGS: Unlabored breathing. Clear to auscultation anteriorly. No wheeze or crackle. HEART: S1, S2, regular rate and rhythm. No loud murmur ABDOMEN: Soft, no tenderness right groin did have area of swelling she did have the [place] drain from last time and tianna intact minimal drainage on the dr essing EXTREMITIES: No edema of feet. SKIN: No rash, no masses palpable. NEUROLOGICAL: The patient is awake, alert, oriented x3, mood and affect normal. Results CBC & Chem 7: 04/18/23 06:16 04/19/23 07:18 Labs: Abnormal Lab Results - Last 24 Hours (Table) 04/14/23 04/15/23 04/15/23 Range/Units 20:24 06:31 06:31 RDW 16.4 H (11.5-15.5) % Plt Count 452 H (150-450) k/uL Carbon Dioxide 21 L (22-30) mmol/L Creatinine 0.47 L (0.52-1.04) mg/dL Glucose 227 H (74-99) mg/dL POC Glucose (mg/dL) 291 H (70-110) mg/dL 04/15/23 04/15/23 04/15/23 Range/Units 07:35 12:32 16:42 RDW (11.5-15.5) % Plt Count (150-450) k/uL Carbon Dioxide (22-30) mmol/L Creatinine (0.52-1.04) mg/dL Glucose (74-99) mg/dL POC Glucose (mg/dL) 224 H 372 H 377 H (70-110) mg/dL Assessment and Plan (1) Abscess of groin, right Status: Acute Code(s): L02.214 - CUTANEOUS ABSCESS OF GROIN SNOMED Code(s): 69087711 Plan: 1patient with a history of recurrent skin and soft tissue abscess with recent admission to the hospital with right groin abscess status post surgical drainage culture positive for Enterobacter and strep and the patient subsequently threatened to leave AMA and left the hospital and was discharged by the PCP on Augmentin presenting to the hospital with worsening pain and drainage did have elevated white count concerning for possible residual abscess/cellulitis 2-we will obtain a CT of the pelvic area to make sure no evidence of any residual abscess that may need to be drained 3-continue with the vancomycin however we will add cefepime on the basis of previous culture We will follow on clinical condition and cultures to further adjust medication if needed Thank you for this consultation we will follow the patient along with you Dictation was produced using [employer] dictation software. please excuse any grammatical, word or spelling errors. Time with Patient: Greater than 30
[2023-04-16 07:07] LABS: African American GFR (CKD) >90 (>60 ml/min/1.73 sqM); Non-African American GFR(CKD) >90 (>60 ml/min/1.73 sqM)
[2023-04-16 07:25] LABS: Glucose,Whole Blood 288 mg/dL (70-110)
[2023-04-16] MEDS: INSULIN DETEMIR (LEVEMIR) 100 UNIT/ML SYR SQ SCH (08:37)
[2023-04-16] MEDS: ERGOCALCIFEROL 1,250 MCG (50,000 IU) CAPSULE PO SCH (08:39)
[2023-04-16 12:09] LABS: Glucose,Whole Blood 249 mg/dL (70-110)
--- NOTE | 2023-04-16 12:38 | P.PN ---
Subjective Progress Note Date: 04/17/23 CHIEF COMPLAINT: Right groin abscess HISTORY OF PRESENT ILLNESS: Patient reports that she is feeling better today. She is still having some purulent drainage from the right groin. Afebrile. She has been seen by infectious disease. They have adjusted antibiotics. They have also ordered a computed tomography scan of the abdomen and pelvis. Last blood sugar 249 PHYSICAL EXAM: VITAL SIGNS: Reviewed GENERAL: Well-developed in no acute distress. HEENT: No sclera icterus. Extraocular movements grossly intact. Moist buccal mucosa. Head is atraumatic, normocephalic. Hears conversational speech. No nasal drainage. NECK: Supple without lymphadenopathy. CHEST: Non-labored respirations and equal bilateral excursions. CARDIOVASCULAR: Palpable 2+ radial pulses. ABDOMEN: Soft. Nondistended. Right groin abscess. [place] drain in place with purulent drainage. No erythema. Mild induration noted. Minimal tenderness with palpation. Incision is healing MUSCULOSKELETAL: No clubbing or cyanosis. NEUROLOGIC: No focal or lateralizing signs. Cranial nerves II through XII grossly intact. PSYCH: Appropriate affect. Alert and oriented to person, place and time. SKIN: Well perfused. Good skin turgor. ASSESSMENT: 1. Right groin abscess status post incision and drainage on 04/01/2023 2. Uncontrolled diabetes mellitus 3. Leukocytosis improved PLAN: -Add High protein diet to help promote healing -Continue antibiotics per ID service -Recommend glucose management -No surgical intervention planned. This is not a surgical complication -patient is noncompliant with her medical care and is noncompliant with taking her medications -Continue the Adelaide drain for now Physician Photo Mask Inspector note has been reviewed by physician. Signing provider agrees with the documented findings, assessment, and plan of care. Please see additional documentation CHIEF COMPLAINT: Right groin abscess HISTORY OF PRESENT ILLNESS: The patient is a 52-year-old female with poorly controlled diabetes who admitted for hyperglycemia. No fevers or chills. Pain well controlled. REVIEW OF ORGAN SYSTEMS: CONSTITUTIONAL: No fevers or chills. No recent weight loss. Morbid obesity, BMI 44.3 CARDIOVASCULAR: Has hyperlipidemia. Has hypertensive heart disease. Has hyperlipidemia. ENDOCRINE: Denies current thyroid disorders. Has diabetes type 2, insulin- dependent, poorly controlled PHYSICAL EXAM: VITALS: Reviewed CONSTITUTIONAL: Well developed and in no acute distress. EYES: Conjuctivae without sclera icterus. Extraocular movements grossly intact. HEAD, EARS, NOSE, THROAT: Moist buccal mucosa. Head is atraumatic, normocephalic. Hears conversational speech. No nasal drainage. RESPIRATORY: Non-labored respirations and equal bilateral excursions. No gross wheezes. CARDIOVASCULAR: Palpable 2+ radial pulses. ABDOMEN: Obese. MUSCULOSKELETAL: No clubbing cyanosis. SKIN: Warm and well perfused with good skin turgor. No moderate cellulitis of the right groin. Decreased seropurulent drainage. NEUROLOGIC: Cranial nerves II through XII grossly intact. No focal or later alizing signs. PSYCH: Appropriate affect. Alert and oriented to person, place and time. Displays appropriate insight. CLINCAL LABS: Reviewed. WBC elevated upon admission improved. ASSESSMENT: 1. Right groin abscess status post drainage 2. Uncontrolled diabetes type 2, insulin-dependent with hyperglycemia 3. Morbid obesity excess calories, BMI 44.3 4. Hypertensive heart disease 5. Medical noncompliance to care PLAN: 1. Continue [place] drain 2. IV antibiotic spread infectious disease 3. Recommend tight glycemic control Objective - Vital Signs Vital signs: Vital Signs Temp 98.7 F 04/16/23 07:28 Pulse 72 04/16/23 11:46 Resp 16 04/16/23 07:28 BP 157/83 04/16/23 07:28 Pulse Ox 98 04/16/23 07:28 FiO2 Intake & Output 04/15/23 04/16/23 04/16/23 18:59 06:59 18:59 Intake Total 1200 531 Balance 1200 531 Intake: Intake, IV Titration 1200 Amount Sodium Chloride 0.9% 1, 1200 000 ml @ 100 mls/hr IV . Q10H YARON Rx#:[id number] Oral 531 Other: Voiding Method Toilet Toilet Toilet # Voids 2 - Labs CBC & Chem 7: 04/18/23 06:16 04/19/23 07:18 Labs: Abnormal Lab Results - Last 24 Hours (Table) 04/15/23 04/15/23 04/15/23 Range/Units 06:31 12:32 16:42 Carbon Dioxide 21 L (22-30) mmol/L Creatinine (0.52-1.04) mg/dL Glucose 227 H (74-99) mg/dL POC Glucose (mg/dL) 372 H 377 H (70-110) mg/dL 04/15/23 04/16/23 04/16/23 Range/Units 19:38 06:33 07:00 Carbon Dioxide (22-30) mmol/L Creatinine 0.46 L (0.52-1.04) mg/dL Glucose (74-99) mg/dL POC Glucose (mg/dL) 407 H 288 H (70-110) mg/dL
--- NOTE | 2023-04-16 13:49 | P.PN ---
Subjective Progress Note Date: 04/16/23 Principal diagnosis: Reason for follow-up is left groin abscess Patient is a 52-year-old female with a past medical history significant for recurrent skin and soft tissue infection patient was recently admitted to this facility did have a right groin abscess s/p surgical drainage culture positive for Enterobacter and Streptococcus agalactiae patient was treated with cefepime, subsequently insisting on going home and was discharged by the PCP on Augmentin now presenting back to the hospital with worsening pain and drainage to the left groin area. On today's evaluation that is 04/16/2023, The patient denies having any fever or any chills, the patient is breathing comfortably on room air patient mention the left groin pain has slightly decreased in intensity no nausea vomiting no abdominal pain no diarrhea. Patient did have white count of 8.4 as of yesterday no CBC was done today creatinine 0.46 Objective - Vital Signs Vital signs: Vital Signs Temp 99 F 04/16/23 13:45 Pulse 65 04/16/23 13:45 Resp 17 04/16/23 13:45 BP 140/68 04/16/23 13:45 Pulse Ox 96 04/16/23 13:45 FiO2 Intake & Output 04/15/23 04/16/23 04/16/23 18:59 06:59 18:59 Intake Total 1200 531 Balance 1200 531 Intake: Intake, IV Titration 1200 Amount Sodium Chloride 0.9% 1, 1200 000 ml @ 100 mls/hr IV . Q10H YARON Rx#:[id number] Oral 531 Other: Voiding Method Toilet Toilet Toilet # Voids 2 - Exam GENERAL DESCRIPTION: Middle-aged female lying in bed in no distress RESPIRATORY SYSTEM: Unlabored breathing , decreased breath sounds at bases HEART: S1 S2 regular rate and rhythm , ABDOMEN: Soft , no tenderness, left groin is currently dressed EXTREMITIES: No edema feet - Labs CBC & Chem 7: 04/15/23 06:31 04/16/23 06:33 Labs: Abnormal Lab Results - Last 24 Hours (Table) 04/15/23 04/15/23 04/16/23 Range/Units 16:42 19:38 06:33 Creatinine 0.46 L (0.52-1.04) mg/dL POC Glucose (mg/dL) 377 H 407 H (70-110) mg/dL 04/16/23 04/16/23 Range/Units 07:00 12:08 Creatinine (0.52-1.04) mg/dL POC Glucose (mg/dL) 288 H 249 H (70-110) mg/dL Assessment and Plan (1) Abscess of groin, right Current Visit: No Status: Acute Code(s): L02.214 - CUTANEOUS ABSCESS OF GROIN SNOMED Code(s): 30914758 Plan: 1patient with a history of recurrent skin and soft tissue abscess with recent admission to the hospital with right groin abscess status post surgical drainage culture positive for Enterobacter and strep and the patient subsequently threatened to leave AMA and left the hospital and was discharged by the PCP on Augmentin presenting to the hospital with worsening pain and drainage did have elevated white count concerning for possible residual abscess/cellulitis 2-we are currently waiting for CT of the pelvic area to make sure no evidence of any residual abscess that may need to be drained 3-patient to continue with the vancomycin and cefepime while waiting for the workup to be completed Dictation was produced using [employer] dictation software. please excuse any grammatical, word or spelling errors. Time with Patient: Less than 30
[2023-04-16 16:48] LABS: Glucose,Whole Blood 351 mg/dL (70-110)
--- NOTE | 2023-04-16 17:08 | CT ---
EXAMINATION TYPE: CT pelvis w con CT DLP: 1074.4 mGycm, Automated exposure control for dose reduction was used. DATE OF EXAM: 04/16/2023 4:47 PM COMPARISON: CT abdomen pelvis most recent from 02/04/2022 CLINICAL INDICATION:Female, 52 years old with history of Right groin abscess follow-up; Right groin a bscess follow-up TECHNIQUE: Axial CT pelvis w con;Sagittal and coronal reformats were created on a separate workstati on. Contrast used:100 mL of Isovue 300 with IV Contrast, (none if empty) Oral contrast used: without Oral Contrast (none if empty) FINDINGS: BLADDER: Unremarkable REPRODUCTIVE: Bilateral tubal ligation clips. ABDOMEN & PELVIS STOMACH AND BOWEL: No evidence of bowel obstruction. The appendix is normal. PERITONEUM/RETROPERITONEUM: No evidence of pneumoperitoneum or free fluid. VASCULATURE: No evidence of aortic aneurysm. MUSCULOSKELETAL: No acute osseous abnormalities LYMPH NODES: No gross evidence for lymphadenopathy. SOFT TISSUE/ABDOMINAL WALL: Bilateral fat-containing inguinal hernias. No organizing fluid collection visualized. Phlegmonous change in the right lower pannus. No organizing fluid collection. IMPRESSION: 1. Phlegmonous change in the right lower pannus. No organizing fluid collection to suggest abscess. 2. Bilateral fat-containing inguinal hernias.
[2023-04-16 19:58] LABS: Glucose,Whole Blood 437 mg/dL (70-110)
[2023-04-16] MEDS: VANCOMYCIN TROUGH DUE 1 EACH MISC MISCELLANE ONE (20:42)
[2023-04-17 07:08] LABS: Glucose,Whole Blood 415 mg/dL (70-110)
[2023-04-17 07:32] LABS: African American GFR (CKD) >90 (>60 ml/min/1.73 sqM); Non-African American GFR(CKD) >90 (>60 ml/min/1.73 sqM)
[2023-04-17] MEDS: INSULIN DETEMIR (LEVEMIR) 100 UNIT/ML SYR SQ SCH (08:57)
[2023-04-17] MEDS: VANCOMYCIN 1,750 MG in SODIUM CHLORIDE 0.9% 500 ML 500 ML IVPB SCH (09:38)
[2023-04-17] MEDS: KETOROLAC 15 MG/ML 1 ML VIAL IVP PRN (11:32)
[2023-04-17] MEDS: ACETAMINOPHEN TAB 500 MG TAB PO SCH (11:34)
[2023-04-17 11:53] LABS: Glucose,Whole Blood 336 mg/dL (70-110)
--- NOTE | 2023-04-17 13:14 | P.PN ---
Subjective Progress Note Date: 04/17/23 CHIEF COMPLAINT: Right groin abscess HISTORY OF PRESENT ILLNESS: Patient reports her pain is controlled on the right groin. She still having drainage but does report that it's decreased. Pelvic CT reports phlegmonous change in the right lower pannus. No organization fluid collection tissue suggest abscess. Bilateral fat-containing inguinal hernias. Afebrile. blood sugar 336 PHYSICAL EXAM: VITAL SIGNS: Reviewed GENERAL: Well-developed in no acute distress. HEENT: No sclera icterus. Extraocular movements grossly intact. Moist buccal mucosa. Head is atraumatic, normocephalic. Hears conversational speech. No nasal drainage. NECK: Supple without lymphadenopathy. CHEST: Non-labored respirations and equal bilateral excursions. CARDIOVASCULAR: Palpable 2+ radial pulses. ABDOMEN: Soft. Nondistended. Right groin abscess. [place] drain in place with small amount of purulent drainage. No erythema. Minimal tenderness with palpation. Incision is healing MUSCULOSKELETAL: No clubbing or cyanosis. NEUROLOGIC: No focal or lateralizing signs. Cranial nerves II through XII grossly intact. PSYCH: Appropriate affect. Alert and oriented to person, place and time. SKIN: Well perfused. Good skin turgor. ASSESSMENT: 1. Right groin abscess status post incision and drainage on 04/01/2023 2. Uncontrolled diabetes mellitus 3. Leukocytosis improved PLAN: -Continue High protein diet to help promote healing -Continue antibiotics per ID service -Resume Toradol and change Tylenol to scheduled for pain management -Medicine service to manage uncontrolled diabetes -No surgical intervention planned. This is not a surgical complication -Patient is noncompliant with her medical care and is noncompliant with taking her medications -Continue the [place] drain for now Physician Piper Installer note has been reviewed by physician. Signing provider agrees with the documented findings, assessment, and plan of care. Please see additional documentation CHIEF COMPLAINT: Right groin abscess HISTORY OF PRESENT ILLNESS: The patient is a 52-year-old female with poorly controlled diabetes who admitted for hyperglycemia. She denies moderate abdominal pain. Pain along groin well-controlled. She reports decreased drainage along the right groin. REVIEW OF ORGAN SYSTEMS: CONSTITUTIONAL: No fevers or chills. No recent weight loss. Morbid obesity, BMI 44.3 CARDIOVASCULAR: Has hyperlipidemia. Has hypertensive heart disease. Has hyperlipidemia. ENDOCRINE: Denies current thyroid disorders. Has diabetes type 2, insulin- dependent, poorly controlled PHYSICAL EXAM: VITALS: Reviewed CONSTITUTIONAL: Well developed and in no acute distress. EYES: Conjuctivae without sclera icterus. Extraocular movements grossly intact. HEAD, EARS, NOSE, THROAT: Moist buccal mucosa. Head is atraumatic, normocephalic. Hears conversational speech. No nasal drainage. RESPIRATORY: Non-labored respirations and equal bilateral excursions. No gross wheezes. CARDIOVASCULAR: Palpable 2+ radial pulses. ABDOMEN: Obese. MUSCULOSKELETAL: No clubbing cyanosis. SKIN: Warm and well perfused with good skin turgor. No moderate cellulitis of the right groin. Decreased seropurulent drainage. NEUROLOGIC: Cranial nerves II through XII grossly intact. No focal or lateralizing signs. PSYCH: Appropriate affect. Alert and oriented to person, place and time. Displays appropriate insight. CLINCAL LABS: Reviewed. WBC normal STUDIES: CT pelvis independently revieweddemonstrates drain along right groin without phlegmon. This is my independent interpretation. ASSESSMENT: 1. Right groin abscess status post drainage 2. Uncontrolled diabetes type 2, insulin-dependent with hyperglycemia 3. Morbid obesity excess calories, BMI 44.3 4. Hypertensive heart disease 5. Medical noncompliance to care PLAN: 1. Continue [place] drain. 2. Continue IV antibiotics. 3. Alter diet to high protein low carb diet Objective - Vital Signs Vital signs: Vital Signs Temp 98.5 F 04/17/23 07:08 Pulse 72 04/17/23 08:10 Resp 16 04/17/23 07:08 BP 152/53 04/17/23 07:08 Pulse Ox 98 04/17/23 07:08 FiO2 Intake & Output 04/16/23 04/17/23 04/17/23 18:59 06:59 18:59 Intake Total 1080 240 Balance 1080 240 Intake: Oral 1080 240 Other: Voiding Method Toilet Toilet # Voids 2 2 - Labs CBC & Chem 7: 04/18/23 06:16 04/19/23 07:18 Labs: Abnormal Lab Results - Last 24 Hours (Table) 04/16/23 04/16/23 04/16/23 Range/Units 12:08 16:44 19:56 POC Glucose (mg/dL) 249 H 351 H 437 H (70-110) mg/dL 04/17/23 Range/Units 07:07 POC Glucose (mg/dL) 415 H (70-110) mg/dL
[2023-04-17 17:27] LABS: Glucose,Whole Blood 322 mg/dL (70-110)
--- NOTE | 2023-04-17 18:53 | CDI ---
Documentation Clarification Form Date: 04/17/2023 From: Danyelle Govea Admit Date: 04/14/2023 04:18:00 AM Patient Name: Dayna Le Visit Number: [id number] ATTENTION: The Clinical Documentation Specialists (CDI) and [facility] Coding Staff appreciate your assistance in clarifying documentation. Please respond to the clarification below the line at the bottom and electronically sign. The CDI & [facility] Coding staff will review the response and follow-up if needed. Please note: Queries are made part of the Legal Health Record. If you have any questions, please contact the author of this message via ITS. Dr. Guillermo Cerda R groin cellulitis/abscess is documented is documented in the record. Additional clarification regarding the type of cellulitis is requested. History/risk factors: 52yo presented with a R groin abscess s/p I&D on 04/01. Per the H&P the pt has DM type 2 and is non-compliant with her insulin. Clinical Indicators: Glucose in ER was 534, WBC 11.9. H&P noted abscess in the right groin and uncontrolled diabetes mellitus due to the lack of compliance. Per IM PN on 04/15 the plan is to increase insulin. Home once blood sugars are improved. Treatment: IV fluid, cefepime IV, Vanco IV, Novolog subQ, Levemir subQ Please clarify the etiology of the cellulitis, if known: [ ] Cellulitis is a diabetic skin complication [ ] Cellulitis is not a diabetic skin complication [ ] Other, please specify: [ ] Unable to determine (Template Last Revised: April 2022) MTDD
[2023-04-17 20:12] LABS: Glucose,Whole Blood 369 mg/dL (70-110)
[2023-04-18 06:53] LABS: Glucose,Whole Blood 258 mg/dL (70-110)
[2023-04-18] MEDS: INSULIN DETEMIR (LEVEMIR) 100 UNIT/ML SYR SQ SCH (08:09)
[2023-04-18 09:23] LABS: HGB 11.5 g/dL (12.0-15.0); MCHC 31.9 g/dL (32.0-37.0); MCV 81.4 FL (80.0-97.0); Mean Platelet Volume 9.2 FL (9.5-12.2); NRBC Per 100 WBC 0 X 10*3/uL (0.00-0.01); Platelet Count 424 X 10*3/uL (140-440); RBC 4.42 X 10*6/uL (4.10-5.20); RDW 16.3 % (11.5-14.5); WBC 8.54 X 10*3/uL (4.50-10.00)
--- NOTE | 2023-04-18 10:49 | P.PN ---
Subjective Progress Note Date: 04/18/23 CHIEF COMPLAINT: Right groin abscess HISTORY OF PRESENT ILLNESS: Patient reporting decreased pain and decreased drainage from the right groin abscess. Pelvic CT reports phlegmonous change in the right lower pannus. No organization fluid collection tissue suggest abscess. Bilateral fat-containing inguinal hernias. Afebrile. WBC remains normal at 8.58 glucose 258 PHYSICAL EXAM: VITAL SIGNS: Reviewed GENERAL: Well-developed in no acute distress. HEENT: No sclera icterus. Extraocular movements grossly intact. Moist buccal mucosa. Head is atraumatic, normocephalic. Hears conversational speech. No nasal drainage. NECK: Supple without lymphadenopathy. CHEST: Non-labored respirations and equal bilateral excursions. CARDIOVASCULAR: Palpable 2+ radial pulses. ABDOMEN: Soft. Nondistended. Right groin abscess. [place] drain in place with small amount of purulent drainage. No erythema. Minimal tenderness with palpation. Incision is healing MUSCULOSKELETAL: No clubbing or cyanosis. NEUROLOGIC: No focal or lateralizing signs. Cranial nerves II through XII grossly intact. PSYCH: Appropriate affect. Alert and oriented to person, place and time. SKIN: Well perfused. Good skin turgor. ASSESSMENT: 1. Right groin abscess status post incision and drainage on 04/01/2023 2. Uncontrolled diabetes mellitus 3. Leukocytosis improved PLAN: -Continue High protein diet to help promote wound healing -Continue antibiotics per ID service -Continue pain management -Medicine service to manage uncontrolled diabetes -No surgical intervention planned. This is not a surgical complication -Patient is noncompliant with her medical care and is noncompliant with taking her medications -Continue the [place] drain for now Physician Cruise Counselor note has been reviewed by physician. Signing provider agrees with the documented findings, assessment, and plan of care. Please see additional documentation CHIEF COMPLAINT: Right groin abscess HISTORY OF PRESENT ILLNESS: The patient is a 52-year-old female with poorly controlled diabetes who admitted for hyperglycemia. Reports decreased drainage from her right groin wound. No fevers or chills. REVIEW OF ORGAN SYSTEMS: CONSTITUTIONAL: No fevers or chills. No recent weight loss. Morbid obesity, BMI 44.3 CARDIOVASCULAR: Has hyperlipidemia. Has hypertensive heart disease. Has hyperlipidemia. ENDOCRINE: Denies current thyroid disorders. Has diabetes type 2, insulin- dependent, poorly controlled PHYSICAL EXAM: VITALS: Reviewed CONSTITUTIONAL: Well developed and in no acute distress. EYES: Conjuctivae without sclera icterus. Extraocular movements grossly intact. HEAD, EARS, NOSE, THROAT: Moist buccal mucosa. Head is atraumatic, normocephalic. Hears conversational speech. No nasal drainage. RESPIRATORY: Non-labored respirations and equal bilateral excursions. No gross wheezes. CARDIOVASCULAR: Palpable 2+ radial pulses. ABDOMEN: Obese. MUSCULOSKELETAL: No clubbing cyanosis. SKIN: Warm and well perfused with good skin turgor. [place] drain with minimal seropurulent drainage. NEUROLOGIC: Cranial nerves II through XII grossly intact. No focal or lateralizing signs. PSYCH: Appropriate affect. Alert and oriented to person, place and time. Displays appropriate insight. CLINCAL LABS: Reviewed. WBC normal. Blood sugar glucose 300-400 ASSESSMENT: 1. Right groin abscess status post drainage 2. Uncontrolled diabetes type 2, insulin-dependent with hyperglycemia 3. Morbid obesity excess calories, BMI 44.3 4. Hypertensive heart disease 5. Medical noncompliance to care PLAN: 1. Continue IV antibiotics. 2. Recommend strict glycemic control. Objective - Vital Signs Vital signs: Vital Signs Temp 98.5 F 04/18/23 07:12 Pulse 46 L 04/18/23 07:12 Resp 16 04/18/23 07:12 BP 155/81 04/18/23 07:12 Pulse Ox 97 04/18/23 07:12 FiO2 Intake & Output 04/17/23 04/18/23 04/18/23 18:59 06:59 18:59 Intake Total 700 Balance 700 Intake: Intake, IV Titration 700 Amount Cefepime 2 gm In Sodium 200 Chloride 0.9% 100 ml @ 25 mls/hr IVPB Q8HR Y[facility]ON Rx# :[id number] Vancomycin 1,750 mg In 500 Sodium Chloride 0.9% 500 ml 500 ml @ 167 mls/hr IVPB Q12H Y[facility]ON Rx#: [id number] Other: Voiding Method Toilet Toilet # Voids 3 - Labs CBC & Chem 7: 04/18/23 06:16 04/19/23 07:18 Labs: Abnormal Lab Results - Last 24 Hours (Table) 04/17/23 04/17/23 04/17/23 Range/Units 11:52 17:26 20:10 Hgb (12.0-15.0) g/dL Hct (37.2-46.3) % MCH (27.0-32.0) pg MCHC (32.0-37.0) g/dL RDW (11.5-14.5) % MPV (9.5-12.2) FL POC Glucose (mg/dL) 336 H 322 H 369 H (70-110) mg/dL 04/18/23 04/18/23 Range/Units 06:16 06:52 Hgb 11.5 L (12.0-15.0) g/dL Hct 36.0 L (37.2-46.3) % MCH 26.0 L (27.0-32.0) pg MCHC 31.9 L (32.0-37.0) g/dL RDW 16.3 H (11.5-14.5) % MPV 9.2 L (9.5-12.2) FL POC Glucose (mg/dL) 258 H (70-110) mg/dL
[2023-04-18 11:52] LABS: Glucose,Whole Blood 321 mg/dL (70-110)
[2023-04-18 13:28] VITALS: BMI 44.3
--- NOTE | 2023-04-18 16:15 | P.PN ---
Subjective Progress Note Date: 04/17/23 Principal diagnosis: Reason for follow-up is left groin abscess Patient is a 52-year-old female with a past medical history significant for recurrent skin and soft tissue infection patient was recently admitted to this facility did have a right groin abscess s/p surgical drainage culture positive for Enterobacter and Streptococcus agalactiae patient was treated with cefepime, subsequently insisting on going home and was discharged by the PCP on Augmentin now presenting back to the hospital with worsening pain and drainage to the left groin area. On today's evaluation that is 04/17/2023, The patient remains to be afebrile, the patient is breathing comfortably on room air, the patient pain to the left groin pain has slightly decreased in intensity no nausea vomiting no abdominal pain no diarrhea. No new symptoms Patient did have white count of 8.4 as of 04/25/2023 no CBC was done today creatinine is 0.52 Objective - Vital Signs Vital signs: Vital Signs Temp 98.5 F 04/17/23 07:08 Pulse 72 04/17/23 08:10 Resp 16 04/17/23 07:08 BP 152/53 04/17/23 07:08 Pulse Ox 98 04/17/23 07:08 FiO2 Intake & Output 04/16/23 04/17/23 04/17/23 18:59 06:59 18:59 Intake Total 1080 240 Balance 1080 240 Intake: Oral 1080 240 Other: Voiding Method Toilet Toilet Toilet # Voids 2 2 - Exam GENERAL DESCRIPTION: Middle-aged female lying in bed in no distress RESPIRATORY SYSTEM: Unlabored breathing , decreased breath sounds at bases HEART: S1 S2 regular rate and rhythm , ABDOMEN: Soft , no tenderness, right groin swelling redness induration has decreased no drainage EXTREMITIES: No edema feet - Labs CBC & Chem 7: 04/18/23 06:16 04/17/23 06:17 Labs: Abnormal Lab Results - Last 24 Hours (Table) 04/16/23 04/16/23 04/16/23 Range/Units 12:08 16:44 19:56 POC Glucose (mg/dL) 249 H 351 H 437 H (70-110) mg/dL 04/17/23 Range/Units 07:07 POC Glucose (mg/dL) 415 H (70-110) mg/dL Assessment and Plan (1) Abscess of groin, right Current Visit: No Status: Acute Code(s): L02.214 - CUTANEOUS ABSCESS OF GROIN SNOMED Code(s): 96038218 Plan: 1patient with a history of recurrent skin and soft tissue abscess with recent admission to the hospital with right groin abscess status post surgical drainage culture positive for Enterobacter and strep and the patient subsequently threatened to leave AMA and left the hospital and was discharged by the PCP on Augmentin presenting to the hospital with worsening pain and drainage did have elevated white count concerning for possible residual abscess/cellulitis 2-patient did have CT of the pelvic did not show any residual abscess 3-patient to continue with the vancomycin and cefepime and monitor clinical course closely Dictation was produced using [employer] dictation software. please excuse any gramm atical, word or spelling errors. Time with Patient: Less than 30
--- NOTE | 2023-04-18 16:16 | P.PN ---
Subjective Progress Note Date: 04/18/23 Principal diagnosis: Reason for follow-up is left groin abscess Patient is a 52-year-old female with a past medical history significant for recurrent skin and soft tissue infection patient was recently admitted to this facility did have a right groin abscess s/p surgical drainage culture positive for Enterobacter and Streptococcus agalactiae patient was treated with cefepime, subsequently insisting on going home and was discharged by the PCP on Augmentin now presenting back to the hospital with worsening pain and drainage to the left groin area. On today's evaluation that is 04/18, The patient remains to be afebrile, the patient is breathing comfortably on room air, the patient denies any chest pain shortness of breath or cough, the patient pain to the left groin pain has slightly decreased in intensity no nausea vomiting no abdominal pain no diarrhea. Feeling better Patient did have white count of 8.54, creatinine is 0.52 Objective - Vital Signs Vital signs: Vital Signs Temp 99.1 F 04/18/23 13:07 Pulse 59 L 04/18/23 13:07 Resp 16 04/18/23 13:07 BP 147/89 04/18/23 13:07 Pulse Ox 99 04/18/23 13:07 FiO2 Intake & Output 04/17/23 04/18/23 04/18/23 18:59 06:59 18:59 Intake Total 700 Balance 700 Weight 102.965 kg Intake: Intake, IV Titration 700 Amount Cefepime 2 gm In Sodium 200 Chloride 0.9% 100 ml @ 25 mls/hr IVPB Q8HR [facility] Rx# :[id number] Vancomycin 1,750 mg In 500 Sodium Chloride 0.9% 500 ml 500 ml @ 167 mls/hr IVPB Q12H [facility]ON Rx#: [id number] Other: Voiding Method Toilet Toilet Toilet # Voids 3 - Exam GENERAL DESCRIPTION: Middle-aged female lying in bed in no distress RESPIRATORY SYSTEM: Unlabored breathing , decreased breath sounds at bases HEART: S1 S2 regular rate and rhythm , ABDOMEN: Soft , no tenderness, right groin dressed no drainage on the dressing EXTREMITIES: No edema feet - Labs CBC & Chem 7: 04/18/23 06:16 04/17/23 06:17 Labs: Abnormal Lab Results - Last 24 Hours (Table) 0104/17/23 04/18/23 Range/Units 17:26 20:10 06:16 Hgb 11.5 L (12.0-15.0) g/dL Hct 36.0 L (37.2-46.3) % MCH 26.0 L (27.0-32.0) pg MCHC 31.9 L (32.0-37.0) g/dL RDW 16.3 H (11.5-14.5) % MPV 9.2 L (9.5-12.2) FL POC Glucose (mg/dL) 322 H 369 H (70-110) mg/dL 04/18/23 04/18/23 Range/Units 06:52 11:50 Hgb (12.0-15.0) g/dL Hct (37.2-46.3) % MCH (27.0-32.0) pg MCHC (32.0-37.0) g/dL RDW (11.5-14.5) % MPV (9.5-12.2) FL POC Glucose (mg/dL) 258 H 321 H (70-110) mg/dL Assessment and Plan (1) Abscess of groin, right Current Visit: No Status: Acute Code(s): L02.214 - CUTANEOUS ABSCESS OF GROIN SNOMED Code(s): 81501528 Plan: 1patient with a history of recurrent skin and soft tissue abscess with recent admission to the hospital with right groin abscess status post surgical drainage culture positive for Enterobacter and strep and the patient subsequently threatened to leave AMA and left the hospital and was discharged by the PCP on Augmentin presenting to the hospital with worsening pain and drainage did have elevated white count concerning for possible residual abscess/cellulitis 2-patient did have CT of the pelvic did not show any residual abscess 3-patient did have some clinical improvement and we will continue with the vanc omycin and cefepime with a plan to finish therapy with oral Ceftin and doxycycline x 10 days on discharge Dictation was produced using [employer] dictation software. please excuse any grammatical, word or spelling errors. Time with Patient: Less than 30
[2023-04-18 17:28] LABS: Glucose,Whole Blood 414 mg/dL (70-110)
[2023-04-18 20:15] LABS: Glucose,Whole Blood 334 mg/dL (70-110)
[2023-04-19 07:15] LABS: Glucose,Whole Blood 241 mg/dL (70-110)
[2023-04-19] MEDS: VANCOMYCIN TROUGH DUE 1 EACH MISC MISCELLANE ONE (07:53)
[2023-04-19 08:02] LABS: African American GFR (CKD) >90 (>60 ml/min/1.73 sqM); Non-African American GFR(CKD) >90 (>60 ml/min/1.73 sqM)
--- NOTE | 2023-04-19 10:00 | P.PN ---
Subjective Progress Note Date: 04/19/23 CHIEF COMPLAINT: Right groin abscess HISTORY OF PRESENT ILLNESS: Patient reports her pain is controlled and decreased. Has minimal drainage from the [place] drain. Infectious disease recommended oral antibiotics at discharge. Afebrile. Glucose 241 PHYSICAL EXAM: VITAL SIGNS: Reviewed GENERAL: Well-developed in no acute distress. HEENT: No sclera icterus. Extraocular movements grossly intact. Moist buccal mucosa. Head is atraumatic, normocephalic. Hears conversational speech. No nasal draina ge. NECK: Supple without lymphadenopathy. CHEST: Non-labored respirations and equal bilateral excursions. CARDIOVASCULAR: Palpable 2+ radial pulses. ABDOMEN: Soft. Nondistended. [place] drain in place with small amount of purulent drainage. No erythema. Minimal tenderness with palpation. Incision is healing MUSCULOSKELETAL: No clubbing or cyanosis. NEUROLOGIC: No focal or lateralizing signs. Cranial nerves II through XII grossly intact. PSYCH: Appropriate affect. Alert and oriented to person, place and time. SKIN: Well perfused. Good skin turgor. ASSESSMENT: 1. Right groin abscess status post incision and drainage on 04/01/2023 2. Uncontrolled diabetes mellitus 3. Leukocytosis improved PLAN: -Patient can be discharged from surgical standpoint when medically cleared -Continue [place] drain at discharge -Continue High protein diet to help promote wound healing -Continue antibiotics per ID service -Continue pain management with Tylenol and Motrin -Medicine service to manage uncontrolled diabetes -No surgical intervention planned. This is not a surgical complication Physician Medical Superintendent note has been reviewed by physician. Signing provider agrees with the documented findings, assessment, and plan of care. Please see additional documentation CHIEF COMPLAINT: Right groin abscess HISTORY OF PRESENT ILLNESS: The patient is a 52-year-old female admitted with hyperglycemia and right groin abscess. She reports minimal drainage from her right groin. No fevers or chills. She is tolerating diet. Blood sugar glucose still moderately elevated over 200. REVIEW OF ORGAN SYSTEMS: CONSTITUTIONAL: No fevers or chills. No recent weight loss. Morbid obesity, BMI 44.3 CARDIOVASCULAR: Has hyperlipidemia. Has hypertensive heart disease. Has hyperlipidemia. ENDOCRINE: Denies current thyroid disorders. Has diabetes type 2, insulin- dependent, poorly controlled PHYSICAL EXAM: VITALS: Reviewed CONSTITUTIONAL: Well developed and in no acute distress. EYES: Conjuctivae without sclera icterus. Extraocular movements grossly intact. HEAD, EARS, NOSE, THROAT: Moist buccal mucosa. Head is atraumatic, normocephalic. Hears conversational speech. No nasal drainage. RESPIRATORY: Non-labored respirations and equal bilateral excursions. No gross wheezes. CARDIOVASCULAR: Palpable 2+ radial pulses. ABDOMEN: Obese. MUSCULOSKELETAL: No clubbing cyanosis. SKIN: Warm and well perfused with good skin turgor. [place] drain with minimal seropurulent drainage. NEUROLOGIC: Cranial nerves II through XII grossly intact. No focal or lateralizing signs. PSYCH: Appropriate affect. Alert and oriented to person, place and time. Displays appropriate insight. CLINCAL LABS: Reviewed. WBC normal. Blood sugar glucose of 350s. ASSESSMENT: 1. Right groin abscess status post drainage 2. Uncontrolled diabetes type 2, insulin-dependent with hyperglycemia 3. Morbid obesity excess calories, BMI 44.3 4. Hypertensive heart disease 5. Medical noncompliance to care PLAN: 1. May remove [place] drain due to minimal drainage upon discharge Objective - Vital Signs Vital signs: Vital Signs Temp 98.4 F 04/19/23 07:13 Pulse 46 L 04/19/23 07:13 Resp 16 04/19/23 07:13 BP 136/61 04/19/23 07:13 Pulse Ox 96 04/19/23 07:13 FiO2 Intake & Output 04/18/23 04/19/23 04/19/23 18:59 06:59 18:59 Intake Total 700 590 Balance 700 590 Weight 102.965 kg Intake: Intake, IV Titration 700 Amount Cefepime 2 gm In Sodium 200 Chloride 0.9% 100 ml @ 25 mls/hr IVPB Q8HR [facility] Rx# :[id number] Vancomycin 1,750 mg In 500 Sodium Chloride 0.9% 500 ml 500 ml @ 167 mls/hr IVPB Q12H [facility] Rx#: [id number] Oral 590 Other: Voiding Method Toilet Toilet # Voids 2 - Labs CBC & Chem 7: 04/18/23 06:16 04/19/23 07:18 Labs: Abnormal Lab Results - Last 24 Hours (Table) 04/18/23 04/18/23 04/18/23 Range/Units 11:50 17:27 20:14 Creatinine (0.52-1.04) mg/dL POC Glucose (mg/dL) 321 H 414 H 334 H (70-110) mg/dL 04/19/23 04/19/23 Range/Units 07:13 07:18 Creatinine 0.51 L (0.52-1.04) mg/dL POC Glucose (mg/dL) 241 H (70-110) mg/dL
[2023-04-19 12:23] LABS: Glucose,Whole Blood 293 mg/dL (70-110)
--- NOTE | 2023-04-19 15:37 | P.PN ---
Subjective Progress Note Date: 04/19/23 Principal diagnosis: Reason for follow-up is left groin abscess Patient is a 52-year-old female with a past medical history significant for recurrent skin and soft tissue infection patient was recently admitted to this facility did have a right groin abscess s/p surgical drainage culture positive for Enterobacter and Streptococcus agalactiae patient was treated with cefepime, subsequently insisting on going home and was discharged by the PCP on Augmentin now presenting back to the hospital with worsening pain and drainage to the left groin area. On today's evaluation that is 04/19/2023, The patient remains to be afebrile, the patient is breathing comfortably on room air, the patient denies chest pain shortness of breath or cough, the patient pain to the left groin pain has slightly decreased in intensity and there is no further drainage, the patient denies any nausea vomiting no abdominal pain no diarrhea. Feeling better and insisting on going home Patient did have white count of 8.54, creatinine is 0.51, her Vanco trough is 15.1 Objective - Vital Signs Vital signs: Vital Signs Temp 98.4 F 04/19/23 07:13 Pulse 46 L 04/19/23 07:13 Resp 16 04/19/23 07:13 BP 136/61 04/19/23 07:13 Pulse Ox 96 04/19/23 07:13 FiO2 Intake & Output 04/18/23 04/19/23 04/19/23 18:59 06:59 18:59 Intake Total 700 590 Balance 700 590 Weight 102.965 kg Intake: Intake, IV Titration 700 Amount Cefepime 2 gm In Sodium 200 Chloride 0.9% 100 ml @ 25 mls/hr IVPB Q8HR YARON Rx# :[id number] Vancomycin 1,750 mg In 500 Sodium Chloride 0.9% 500 ml 500 ml @ 167 mls/hr IVPB Q12H YARON Rx#: [id number] Oral 590 Other: Voiding Method Toilet Toilet # Voids 2 - Exam GENERAL DESCRIPTION: Middle-aged female lying in bed in no distress RESPIRATORY SYSTEM: Unlabored breathing , decreased breath sounds at bases HEART: S1 S2 regular rate and rhythm , ABDOMEN: Soft , no tenderness, right groin dressed no drainage on the dressing EXTREMITIES: No edema feet - Labs CBC & Chem 7: 04/18/23 06:16 04/19/23 07:18 Labs: Abnormal Lab Results - Last 24 Hours (Table) 04/18/23 04/18/23 04/18/23 Range/Units 11:50 17:27 20:14 Creatinine (0.52-1.04) mg/dL POC Glucose (mg/dL) 321 H 414 H 334 H (70-110) mg/dL 04/19/23 04/19/23 Range/Units 07:13 07:18 Creatinine 0.51 L (0.52-1.04) mg/dL POC Glucose (mg/dL) 241 H (70-110) mg/dL Assessment and Plan (1) Abscess of groin, right Current Visit: No Status: Acute Code(s): L02.214 - CUTANEOUS ABSCESS OF GROIN SNOMED Code(s): 73069694 Plan: 1patient with a history of recurrent skin and soft tissue abscess with recent admission to the hospital with right groin abscess status post surgical drainage culture positive for Enterobacter and strep and the patient subsequently threatened to leave AMA and left the hospital and was discharged by the PCP on Augmentin presenting to the hospital with worsening pain and drainage did have elevated white count concerning for possible residual abscess/cellulitis 2-patient did have CT of the pelvic did not show any residual abscess 3-patient did have some clinical improvement and wants to go home, we will recommend removal of the [place] drain to decrease risk of further complication before discharge prescription for oral Ceftin and doxycycline has been sent to the pharmacy Dictation was produced using [employer] dictation software. please excuse any grammatical, word or spelling errors. Time with Patient: Less than 30
[2023-04-19 17:29] LABS: Glucose,Whole Blood 369 mg/dL (70-110)
[2023-04-19 20:32] LABS: Glucose,Whole Blood 375 mg/dL (70-110)
--- NOTE | 2023-04-20 04:41 | PN ---
PROGRESS NOTE CHIEF COMPLAINT: Abscess in the right groin and uncontrolled diabetes. HISTORY OF PRESENT ILLNESS: Despite vigorous attempts to bring her blood sugars down, it is still quite high and her insulin will be increased from 100 to 120 units a day. She is stable otherwise. PHYSICAL EXAMINATION: Unchanged. CHEST: Clear. CARDIAC: Normal. ABDOMEN: Protuberant, soft. IMPRESSION: 1. Abscess, right groin. 2. Uncontrolled diabetes. PLAN: Raise insulin again. MMODL / IJN: [id number] /
[2023-04-20 07:34] LABS: Glucose,Whole Blood 277 mg/dL (70-110)
[2023-04-20] MEDS: INSULIN DETEMIR (LEVEMIR) 100 UNIT/ML SYR SQ SCH (08:40)
--- NOTE | 2023-04-20 11:58 | P.PN ---
Subjective Progress Note Date: 04/20/23 NAEON. No F/C. No worsening groin pain. Admits to persistent purulent drainage from R groin. No abdominal pain N/V. Admits to flatus and BM. Tolerating diet. Objective - Vital Signs Vital signs: Vital Signs Temp 98.4 F 04/20/23 07:32 Pulse 51 L 04/20/23 07:32 Resp 15 04/20/23 07:32 BP 132/72 04/20/23 07:32 Pulse Ox 97 04/20/23 07:32 FiO2 Intake & Output 04/19/23 04/20/23 04/20/23 18:59 06:59 18:59 Intake Total 1200 1200 Balance 1200 1200 Intake: Intake, IV Titration 1200 Amount Sodium Chloride 0.9% 1, 1200 000 ml @ 100 mls/hr IV . Q10H YARON Rx#:[id number] Oral 1200 Other: Voiding Method Toilet Toilet Toilet # Voids 3 - Exam Gen: AxO, NAD Pulm: non-labored respirations Abd: soft, non-tender, minimally distended, no guarding/rebound/rigidity R groin Incisions: C/D/I, no erythema or fluctuence appreciated. Purulent drainage seen from I/D site. Extrem: no edema seen - Labs CBC & Chem 7: 04/18/23 06:16 04/19/23 07:18 Labs: Abnormal Lab Results - Last 24 Hours (Table) 04/19/23 04/19/23 04/19/23 Range/Units 12:22 17:28 20:30 POC Glucose (mg/dL) 293 H 369 H 375 H (70-110) mg/dL 04/20/23 Range/Units 07:33 POC Glucose (mg/dL) 277 H (70-110) mg/dL Assessment and Plan Assessment: Patient is a 52F who is s/p I/D of R groin abscess Plan: -Diet as tolerated -Abx per primary -Prn pain control -Okay to Dc home from surgical standpoint Charanjit Eric MD General Surgery
--- NOTE | 2023-04-20 12:39 | P.PN ---
Subjective Progress Note Date: 04/20/23 Principal diagnosis: Reason for follow-up is right groin abscess Patient is a 52-year-old female with a past medical history significant for recurrent skin and soft tissue infection patient was recently admitted to this facility did have a right groin abscess s/p surgical drainage culture positive for Enterobacter and Streptococcus agalactiae patient was treated with cefepime, subsequently insisting on going home and was discharged by the PCP on Augmentin now presenting back to the hospital with worsening pain and drainage to the left groin area. On today's evaluation that is 04/20/2023, The patient continues to be afebrile, the patient is breathing comfortably on room air, the patient denies chest pain shortness of breath or cough, the patient pain to the right groin pain has decreased in intensity and patient mention she pulled out her [place] drain no further drainage and no nausea no vomiting no diarrhea Patient did have white count of 8.54 as of 04/18/2023, creatinine is 0.51 as of 04/19/2023, her Vanco trough is 15.1 Objective - Vital Signs Vital signs: Vital Signs Temp 98.4 F 04/20/23 07:32 Pulse 51 L 04/20/23 07:32 Resp 15 04/20/23 07:32 BP 132/72 04/20/23 07:32 Pulse Ox 97 04/20/23 07:32 FiO2 Intake & Output 04/19/23 04/20/23 04/20/23 18:59 06:59 18:59 Intake Total 1200 1200 Balance 1200 1200 Intake: Intake, IV Titration 1200 Amount Sodium Chloride 0.9% 1, 1200 000 ml @ 100 mls/hr IV . Q10H YARON Rx#:[id number] Oral 1200 Other: Voiding Method Toilet Toilet Toilet # Voids 3 - Exam GENERAL DESCRIPTION: Middle-aged female lying in bed in no distress RESPIRATORY SYSTEM: Unlabored breathing , decreased breath sounds at bases HEART: S1 S2 regular rate and rhythm , ABDOMEN: Soft , no tenderness, right groin swelling redness almost resolved no drainage EXTREMITIES: No edema feet - Labs CBC & Chem 7: 04/18/23 06:16 04/19/23 07:18 Labs: Abnormal Lab Results - Last 24 Hours (Table) 04/19/23 04/19/23 04/20/23 Range/Units 17:28 20:30 07:33 POC Glucose (mg/dL) 369 H 375 H 277 H (70-110) mg/dL Assessment and Plan (1) Abscess of groin, right Current Visit: No Status: Acute Code(s): L02.214 - CUTANEOUS ABSCESS OF GROIN SNOMED Code(s): 79121657 Plan: 1patient with a history of recurrent skin and soft tissue abscess with recent admission to the hospital with right groin abscess status post surgical drainage culture positive for Enterobacter and strep and the patient subsequently threatened to leave AMA and left the hospital and was discharged by the PCP on Augmentin presenting to the hospital with worsening pain and drainage did have elevated white count concerning for possible residual abscess/cellulitis 2-patient did have CT of the pelvic did not show any residual abscess 3-patient did have some clinical improvement and the patient pulled out her [place] drain, currently on cefepime vancomycin which can be discontinued as prescription for oral Ceftin and doxycycline has been sent to the pharmacy as of yesterday Dictation was produced using [employer] dictation software. please excuse any grammatical, word or spelling errors. Time with Patient: Less than 30
[2023-04-20 12:50] LABS: Glucose,Whole Blood 293 mg/dL (70-110)
[2023-04-20 13:36] VITALS: RESP 16
[2023-04-20 17:14] LABS: Glucose,Whole Blood 309 mg/dL (70-110)
[2023-04-20 20:02] LABS: Glucose,Whole Blood 365 mg/dL (70-110)
[2023-04-21 07:37] LABS: Glucose,Whole Blood 148 mg/dL (70-110)
[2023-04-21] MEDS: INSULIN DETEMIR (LEVEMIR) 100 UNIT/ML SYR SQ SCH (08:11)
[2023-04-21 11:55] LABS: Glucose,Whole Blood 276 mg/dL (70-110)
[2023-04-21 13:30] VITALS: BP 165/96; PULSE 52; TEMP 98.1
--- NOTE | 2023-04-21 14:51 | P.PN ---
Subjective Progress Note Date: 04/21/23 CHIEF COMPLAINT: Right groin abscess HISTORY OF PRESENT ILLNESS: The patient is a 52-year-old female admitted with hyperglycemia and right groin abscess. Drain from the groin has been removed. She reports minimal to no drainage. No fevers or chills. REVIEW OF ORGAN SYSTEMS: CONSTITUTIONAL: No fevers or chills. No recent weight loss. Morbid obesity, BMI 44.3 CARDIOVASCULAR: Has hyperlipidemia. Has hypertensive heart disease. Has hyperlipidemia. ENDOCRINE: Denies current thyroid disorders. Has diabetes type 2, insulin- dependent, poorly controlled PHYSICAL EXAM: VITALS: Reviewed CONSTITUTIONAL: Well developed and in no acute distress. EYES: Conjuctivae without sclera icterus. Extraocular movements grossly intact. HEAD, EARS, NOSE, THROAT: Moist buccal mucosa. Head is atraumatic, normocephalic. Hears conversational speech. No nasal drainage. RESPIRATORY: Non-labored respirations and equal bilateral excursions. No gross wheezes. CARDIOVASCULAR: Palpable 2+ radial pulses. ABDOMEN: Obese. MUSCULOSKELETAL: No clubbing cyanosis. SKIN: Warm and well perfused with good skin turgor. No moderate cellulitis. Minimal drainage. Dressing clean dry and intact. NEUROLOGIC: Cranial nerves II through XII grossly intact. No focal or lateralizing signs. PSYCH: Appropriate affect. Alert and oriented to person, place and time. Displays appropriate insight. CLINCAL LABS: Reviewed. WBC normal. Blood sugar glucose 250 ASSESSMENT: 1. Right groin abscess status post drainage 2. Uncontrolled diabetes type 2, insulin-dependent with hyperglycemia 3. Morbid obesity excess calories, BMI 44.3 4. Hypertensive heart disease 5. Medical noncompliance to care PLAN: 1. Continue IV antibiotic 2. Continue blood sugar glucose control 3. Follow up with ID as outpatient regarding antibiotic management Objective - Vital Signs Vital signs: Vital Signs Temp 98.1 F 04/21/23 12:58 Pulse 52 L 04/21/23 12:58 Resp 16 04/21/23 12:58 BP 165/96 04/21/23 12:58 Pulse Ox 98 04/21/23 12:58 FiO2 Intake & Output 04/20/23 04/21/23 04/21/23 18:59 06:59 18:59 Intake Total 590 Output Total 400 Balance 190 Intake: Oral 590 Output: Urine 400 Other: Voiding Method Toilet Toilet Toilet # Voids 3 - Labs CBC & Chem 7: 04/18/23 06:16 04/19/23 07:18 Labs: Abnormal Lab Results - Last 24 Hours (Table) 04/20/23 04/20/23 04/21/23 Range/Units 17:12 20:01 07:36 POC Glucose (mg/dL) 309 H 365 H 148 H (70-110) mg/dL 04/21/23 Range/Units 11:54 POC Glucose (mg/dL) 276 H (70-110) mg/dL
--- NOTE | 2023-04-21 15:06 | P.PN ---
Subjective Progress Note Date: 04/21/23 Principal diagnosis: Reason for follow-up is right groin abscess Patient is a 52-year-old female with a past medical history significant for recurrent skin and soft tissue infection patient was recently admitted to this facility did have a right groin abscess s/p surgical drainage culture positive for Enterobacter and Streptococcus agalactiae patient was treated with cefepime, subsequently insisting on going home and was discharged by the PCP on Augmentin now presenting back to the hospital with worsening pain and drainage to the left groin area. On today's evaluation that is 04/21/2023, The patient denies any fever or any chills, the patient is breathing comfortably on room air, the patient denies chest pain shortness of breath or cough, the patient pain to the right groin pain has decreased in intensity and no further drainage no abdominal pain no diarrhea Patient did have white count of 8.54 as of 04/18/2023, creatinine is 0.51 as of 04/19/2023, no new labs obtained today Objective - Vital Signs Vital signs: Vital Signs Temp 98.1 F 04/21/23 12:58 Pulse 52 L 04/21/23 12:58 Resp 16 04/21/23 12:58 BP 165/96 04/21/23 12:58 Pulse Ox 98 04/21/23 12:58 FiO2 Intake & Output 04/20/23 04/21/23 04/21/23 18:59 06:59 18:59 Intake Total 590 Output Total 400 Balance 190 Intake: Oral 590 Output: Urine 400 Other: Voiding Method Toilet Toilet Toilet # Voids 3 - Exam GENERAL DESCRIPTION: Middle-aged female lying in bed in no distress RESPIRATORY SYSTEM: Unlabored breathing , decreased breath sounds at bases HEART: S1 S2 regular rate and rhythm , ABDOMEN: Soft , no tenderness, right groin swelling redness almost resolved no drainage EXTREMITIES: No edema feet - Labs CBC & Chem 7: 04/18/23 06:16 04/19/23 07:18 Labs: Abnormal Lab Results - Last 24 Hours (Table) 04/20/23 04/20/23 04/21/23 Range/Units 17:12 20:01 07:36 POC Glucose (mg/dL) 309 H 365 H 148 H (70-110) mg/dL 04/21/23 Range/Units 11:54 POC Glucose (mg/dL) 276 H (70-110) mg/dL Assessment and Plan (1) Abscess of groin, right Status: Acute Code(s): L02.214 - CUTANEOUS ABSCESS OF GROIN SNOMED Code(s): 16158597 Plan: 1patient with a history of recurrent skin and soft tissue abscess with recent admission to the hospital with right groin abscess status post surgical drainage culture positive for Enterobacter and strep and the patient subsequently threatened to leave AMA and left the hospital and was discharged by the PCP on Augmentin presenting to the hospital with worsening pain and drainage did have elevated white count concerning for possible residual abscess/cellulitis 2-patient did have CT of the pelvic did not show any residual abscess 3-patient did have some clinical improvement, patient to finish therapy with oral Ceftin and doxycycline has been sent to the pharmacy and close outpatient follow-up Dictation was produced using [employer] dictation software. please excuse any grammatical, word or spelling errors. Time with Patient: Less than 30
--- NOTE | 2023-04-22 01:04 | DS ---
DISCHARGE SUMMARY CHIEF COMPLAINT: Right groin abscess. HISTORY OF PRESENT ILLNESS AND PHYSICAL EXAM: Details of this lady's history and physical can be found in the initial workup. LABORATORY STUDIES: While she was in the hospital, she had laboratory studies, details of which can be found in the laboratory section of her chart. COURSE IN THE HOSPITAL: After admission, she was placed on bedrest, started on intravenous fluids, and seen by Surgery. It was felt that the abscess was adequately drained and she was placed on IV antibiotics. The biggest issue was inability to manage her blood sugars with her staying in the range of 300s to 400s. Insulin was increased and finally they started to come down. It was felt that she could go home on the . She will go home on oral antibiotics and be seen in the office in several days. FINAL DIAGNOSES: 1. Right groin abscess. 2. Uncontrolled type 2 diabetes mellitus. 3. Obesity. OPERATIONS: None. CONSULTATIONS: Surgery. She is improved. MMPAULA / EVELINN: [id number] /
--- NOTE | 2023-04-22 01:37 | PN ---
PROGRESS NOTE DATE OF SERVICE: 04/16/2023 CHIEF COMPLAINT: Uncontrolled diabetes with right groin abscess. HISTORY OF PRESENT ILLNESS: This lady's blood sugars continued to be extremely high despite stepping up her long- term insulin dosages fairly quickly. PHYSICAL EXAMINATION: CHEST: Clear. CARDIAC: Normal. ABDOMEN: Soft, nontender. IMPRESSION: 1. Right groin abscess. 2. Uncontrolled insulin-dependent diabetes mellitus. PLAN: Increase Levemir from 60 to 80 units a day. MMODL / IJN: [id number] /
--- NOTE | 2023-04-22 01:37 | PN ---
PROGRESS NOTE DATE OF SERVICE: 04/17/2023 CHIEF COMPLAINT: Uncontrolled diabetes. HISTORY OF PRESENT ILLNESS: This lady's abscess is not a problem. Her blood sugars are very high. PHYSICAL EXAMINATION: GENERAL: She is awake and alert. CHEST: Clear. CARDIAC: Normal. ABDOMEN: Protuberant. EXTREMITIES: Normal. IMPRESSION: 1. Right groin abscess. 2. Uncontrolled diabetes. PLAN: Continue to raise insulin dosage until her blood sugars are under good control. MMODL / IJN: [id number] /
--- NOTE | 2023-04-22 04:28 | PN ---
PROGRESS NOTE DATE OF SERVICE: 04/20/2023 CHIEF COMPLAINT: Abscess to the right groin and uncontrolled diabetes. HISTORY OF PRESENT ILLNESS: This lady's blood sugars are still quite high. She has had no fever or chills. She has had no pain. PHYSICAL EXAMINATION: CHEST: Clear. CARDIAC: Normal. ABDOMEN: Soft, nontender. IMPRESSION: Uncontrolled type 2 diabetes. PLAN: Increase insulin dosage again in hopes to being able to discharge her in the next day or 2. MMODL / IJN: [id number] /
--- NOTE | 2023-04-22 04:43 | PN ---
PROGRESS NOTE DATE OF SERVICE: 04/18/2023 CHIEF COMPLAINT: Uncontrolled diabetes. HISTORY OF PRESENT ILLNESS: This lady is doing well. Blood sugars are running very high. Insulin is being steadily increased. PHYSICAL EXAMINATION: CHEST: Clear. CARDIAC: Normal. ABDOMEN: Protuberant, soft. IMPRESSION: 1. Uncontrolled diabetes. 2. Abscess, right groin. PLAN: Continue to increase insulin aggressively in hopes of discharging her in the next day or 2. MMODL / IJN: [id number] /
--- NOTE | 2023-04-22 05:13 | PN ---
PROGRESS NOTE DATE OF SERVICE: 04/19/2023 CHIEF COMPLAINT: Uncontrolled diabetes. HISTORY OF PRESENT ILLNESS: This lady continues to run high blood sugars despite moving her insulin dosages up very quickly. Other than that, she has not had any problems. The abscess is not an issue. PHYSICAL EXAMINATION: CHEST: Clear. CARDIAC: Normal. ABDOMEN: Soft and nontender. IMPRESSION: 1. Uncontrolled diabetes. 2. Right groin abscess. 3. Hypertriglyceridemia. PLAN: Increase insulin again today. MMODL / IJN: [id number] /
[2023-04-22] MEDS ORDERED: VANCOMYCIN TROUGH DUE 1 EACH MISC MISCELLANE ONE (07:00)
--- NOTE | 2023-05-21 22:49 | MISC ---
MISCELLANOUS REPORT Cellulitis, is a diabetic skin complication. MMODL / IJN: [id number] /
== END 2023-04-21 15:03 | disposition home or self-care (01) | DRG 638 ==
LOC: EC 00:41 → 5NMEDONC 04:18
PROVIDERS: ADMIT Family Medicine; ATTEND Family Medicine
PROC: 05HC33Z Insertion of Infusion Device into Left Basilic Vein, Percutaneous Approach (ICD-10-PCS; principal; 2023-04-16 17:25)
DX: E11.628 Type 2 diabetes mellitus with other skin complications (principal); K86.1 Other chronic pancreatitis; L02.214 Cutaneous abscess of groin; L03.314 Cellulitis of groin; Z68.41 Body mass index [BMI] 40.0-44.9, adult; E11.65 Type 2 diabetes mellitus with hyperglycemia; E87.5 Hyperkalemia; G89.29 Other chronic pain; M54.50 Low back pain, unspecified; Z79.4 Long term (current) use of insulin; E78.1 Pure hyperglyceridemia; I10 Essential (primary) hypertension; T38.3X6A Underdosing of insulin and oral hypoglycemic [antidiabetic] drugs, initial encounter; E66.9 Obesity, unspecified; Z28.311 Partially vaccinated for COVID-19; Z11.52 Encounter for screening for COVID-19; E78.5 Hyperlipidemia, unspecified; K21.9 Gastro-esophageal reflux disease without esophagitis; Z87.891 Personal history of nicotine dependence; Z86.14 Personal history of Methicillin resistant Staphylococcus aureus infection; Z87.440 Personal history of urinary (tract) infections; Z79.899 Other long term (current) drug therapy; Z91.128 Patient's intentional underdosing of medication regimen for other reason; Z88.1 Allergy status to other antibiotic agents; Z88.0 Allergy status to penicillin
CPT/HCPCS: 36410; 36415; 72193; 76937; 80048; 80053; 80202; 81001; 82565; 83605; 85025; 85027; 87636; 94640; 96361; 96365; 96366; 96375; 96376; 99285

== ENCOUNTER 2023-05-09 12:25 | Emergency (ER) | payer MEDICARE, OTHER ==
[2023-05-09 14:10] VITALS: RESP 18
--- NOTE | 2023-05-09 14:24 | ED ---
General Adult HPI - General Chief complaint: Upper Respiratory Infection Stated complaint: sharp pain in abd. Time Seen by Provider: 05/09/23 13:40 Source: patient, RN notes reviewed Mode of arrival: wheelchair Limitations: no limitations - History of Present Illness Initial comments: Patient is a 52-year-old female presenting to the emergency room today with chief complaint of increased cough, congestion. Does admit that symptoms started 2 or 3 days ago. States that she has had some sputum production has been clear in color. Patient states that she has noticed some chest discomfort when she is coughing. Patient admits that is worse with certain movements. Patient states that has had some body aches and chills. Patient denies any other complaints or any other symptoms at this time. Patient denies any recent shortness of breath, back pain, abdominal pain, nausea or vomiting, numbness or tingling, headaches or visual changes, or any other complaints. - Related Data Home Medications Medication Instructions Recorded Confirmed Atorvastatin [Lipitor] 80 mg PO HS 06/25/19 04/14/23 lisinopriL 40 mg PO DAILY 09/24/20 04/14/23 traZODone HCL 50 mg PO HS PRN 01/11/21 04/14/23 Ergocalciferol (Vitamin D2) 1,250 mcg PO TU 03/03/21 04/14/23 [Drisdol (50,000 Iu)] Esomeprazole Magnesium [NexIUM] 20 mg PO DAILY 01/30/22 04/14/23 INSULIN ASPART (NovoLOG) [NovoLOG 20 unit SQ AC-TID 11/26/22 04/14/23 (formulary)] Albuterol Inhaler [Ventolin Hfa 2 puff INHALATION RT-QID 03/01/23 04/14/23 Inhaler] Previous Rx's Medication Instructions Recorded amLODIPine [Norvasc] 10 mg PO DAILY #30 tab 03/11/23 hydrALAZINE HCL [Apresoline] 25 mg PO BID #60 tab 03/11/23 Doxycycline Hyclate 100 mg PO BID 10 Days #20 tab 04/19/23 cefUROXime axetiL [Ceftin] 500 mg PO BID 10 Days #20 tab 04/19/23 Insulin Detemir (Levemir) [Levemir] 130 unit SQ DAILY@0700 #60 each 04/21/23 Allergies Allergy/AdvReac Type Severity Reaction Status Date / Time levofloxacin [From Levaquin] Allergy Rash/Hives Verified 04/14/23 13:59 Review of Systems ROS Statement: Those systems with pertinent positive or pertinent negative responses have been documented in the HPI. ROS Other: All systems not noted in ROS Statement are negative. Past Medical History Past Medical History: Diabetes Mellitus, GERD/Reflux, Hyperlipidemia, Hyperten randolph, Syncope Additional Past Medical History / Comment(s): Pt recently admitted to [facility] on 07/21/21 with uncontrolled IDDM and hyperkalemia. Other hx: Recurrent pancreatitis, hypertriglyceridemia, elevated lipase, IDDM type II, UTI, chronic low back pain, bulging discs, dental abscesses in past. History of Any Multi-Drug Resistant Organisms: MRSA Date of last positivie culture/infection: 03/01/23 MDRO Source:: Abdomen Past Surgical History: Tubal Ligation Additional Past Surgical History / Comment(s): Age 7 had VSD repair, Past Anesthesia/Blood Transfusion Reactions: No Reported Reaction Past Psychological History: No Psychological Hx Reported Smoking Status: Former smoker, Second hand smoke exposure, Vaper Past Alcohol Use History: None Reported Past Drug Use History: None Reported - Past Family History Mother Family Medical History: No Reported History Additional Family Medical History / Comment(s): Mother was healthy. She is , pt cannot recall cause of . Father Family Medical History: Pneumonia Additional Family Medical History / Comment(s): Father at the age of 67yrs from pneumonia General Exam - General Exam Comments Initial Comments: General: The patient is awake and alert, in no distress, and does not appear acutely ill. Eye: Extra-ocular movements are intact. There is normal conjunctiva bilaterally. No signs of icterus. Ears, nose, mouth and throat: There are moist mucous membranes and no oral lesions. Neck: The neck is supple, there is no tenderness or JVD. Cardiovascular: There is a regular rate and rhythm. No murmur, rub or gallop is appreciated. Respiratory: Lungs are clear to auscultation, respirations are non-labored, breath sounds are equal. No wheezes, stridor, rales, or rhonchi. Musculoskeletal: Normal ROM of all extremities. Pain to the anterior chest wall reproduced on palpation. Neurological: A&O x 3. CN II-XII intact, There are no obvious motor or sensory deficits. Coordination appears grossly intact. Speech is normal. Skin: Skin is warm and dry and no rashes or lesions are noted. Psychiatric: Cooperative, appropriate mood & affect, normal judgment. Limitations: no limitations Course Vital Signs 05/09/23 05/09/23 13:01 14:07 Temperature 98.1 F Pulse Rate 76 Respiratory 20 18 Rate Blood Pressure 134/72 O2 Sat by Pulse 97 Oximetry EKG Findings - EKG Comments: EKG Findings:: EKG performed at 1359. Shows sinus rhythm at 78 bpm. WA is 129. QRS is 89. QT/QTC is 368/401. Shows no acute ST changes. Medical Decision Making - Medical Decision Making History was obtained from patient/Nurse/ Initial assessment and chief complaint: Cough, congestion Chronic conditions affecting care: Diabetes, hypertension, hyperlipidemia Social determinants affecting care: None Differential diagnosis included, but not limited to: COVID, RSV, influenza, pneumonia, viral upper respiratory infection Any imaging that may have been performed was also reviewed. I did an independent interpretation of the patient's imaging. My interpretation of chest x-ray was reviewed shows no signs of pneumonia. No other acute abnormalities. 52-year-old female presented to the emergency room today with a chief complaint of cough, congestion over the last few days. Does admit to some sputum production. Lung sounds are clear. Chest x-ray was reviewed showed no sign of pneumonia. Vitals have been stable here in the emergency room. She does admit to some pain to the chest when she coughs. Is reproduced on palpation to the anterior chest wall. EKG was obtained showed no acute abnormality. Patient's vitals have been stable here in the emergency room. Is advised most likely viral illness. COVID, influenza were negative. Patient advised to continue with anti-inflammatories and xiek-yox-goxuqmg medications. Advised to follow with her PCP or return here to the emergency room for any other concerns. States understanding and is agreement. - Lab Data Lab Results 05/09/23 Range/Units 13:59 Influenza Type A (PCR) Not Detected (Not Detectd) Influenza Type B (PCR) Not Detected (Not Detectd) RSV (PCR) Not Detected (Not Detectd) SARS-CoV-2 (PCR) Not Detected (Not Detectd) Disposition Clinical Impression: Acute upper respiratory infection Disposition: HOME SELF-CARE Condition: Good Instructions (If sedation given, give patient instructions): Upper Respiratory Infection (ED) Additional Instructions: Please follow-up with family physician over the next 2 days. Use [id number] medications as discussed. Return for any other concerns. Is patient prescribed a controlled substance at d/c from ED?: No Referrals: Guillermo Cerda MD [Primary Care Provider] - 1-2 days Time of Disposition: 15:17
--- NOTE | 2023-05-09 14:52 | XR ---
EXAMINATION TYPE: XR chest 2V DATE OF EXAM: 05/09/2023 COMPARISON: 03/28/2023 INDICATION: Cough TECHNIQUE: Frontal and lateral views of the chest are obtained. FINDINGS: The heart size is normal. The pulmonary vasculature is normal. The lungs are clear. IMPRESSION: 1. No acute pulmonary process.
[2023-05-09 15:49] VITALS: BP 131/83; PULSE 79; TEMP 99
== END 2023-05-09 15:43 | disposition home or self-care (01) ==
LOC: EC 12:25
DX: J06.9 Acute upper respiratory infection, unspecified (principal); E11.9 Type 2 diabetes mellitus without complications; I10 Essential (primary) hypertension; K21.9 Gastro-esophageal reflux disease without esophagitis; E78.5 Hyperlipidemia, unspecified; F17.290 Nicotine dependence, other tobacco product, uncomplicated; Z79.899 Other long term (current) drug therapy; Z79.4 Long term (current) use of insulin; Z88.8 Allergy status to other drugs, medicaments and biological substances; Z20.822 Contact with and (suspected) exposure to COVID-19
CPT/HCPCS: 71046; 87636; 99284

== ENCOUNTER 2023-05-14 23:33 | Emergency (ER) | payer MEDICARE, OTHER ==
[2023-05-15 00:11] VITALS: RESP 18; TEMP 97.9
--- NOTE | 2023-05-15 01:46 | ED ---
General Adult HPI - General Chief complaint: Upper Respiratory Infection Stated complaint: Cough, Congestion Time Seen by Provider: 05/15/23 00:22 Source: EMS Mode of arrival: EMS - History of Present Illness Initial comments: 52-year-old female presenting to the ED with a chief complaint of URI symptoms. Patient states today onset of myalgias, cough, congestion, sore throat. No chest pain or shortness of breath. Patient reports that she has not taken any medications for symptoms as she does not have any medications at home. No other complaints at this time. Denies fever or chills. - Related Data Home Medications Medication Instructions Recorded Confirmed Atorvastatin [Lipitor] 80 mg PO HS 06/25/19 04/14/23 lisinopriL 40 mg PO DAILY 09/24/20 04/14/23 traZODone HCL 50 mg PO HS PRN 01/11/21 04/14/23 Ergocalciferol (Vitamin D2) 1,250 mcg PO TU 03/03/21 04/14/23 [Drisdol (50,000 Iu)] Esomeprazole Magnesium [NexIUM] 20 mg PO DAILY 01/30/22 04/14/23 INSULIN ASPART (NovoLOG) [NovoLOG 20 unit SQ AC-TID 11/26/22 04/14/23 (formulary)] Albuterol Inhaler [Ventolin Hfa 2 puff INHALATION RT-QID 03/01/23 04/14/23 Inhaler] Previous Rx's Medication Instructions Recorded amLODIPine [Norvasc] 10 mg PO DAILY #30 tab 03/11/23 hydrALAZINE HCL [Apresoline] 25 mg PO BID #60 tab 03/11/23 Doxycycline Hyclate 100 mg PO BID 10 Days #20 tab 04/19/23 cefUROXime axetiL [Ceftin] 500 mg PO BID 10 Days #20 tab 04/19/23 Insulin Detemir (Levemir) [Levemir] 130 unit SQ DAILY@0700 #60 each 04/21/23 Acetaminophen Tab [Tylenol] 650 mg PO Q6H #30 tab 05/15/23 Ibuprofen [Motrin] 600 mg PO Q8HR PRN #30 tab 05/15/23 Allergies Allergy/AdvReac Type Severity Reaction Status Date / Time levofloxacin [From Levaquin] Allergy Rash/Hives Verified 05/14/23 23:46 Review of Systems ROS Statement: Those systems with pertinent positive or pertinent negative responses have been documented in the HPI. ROS Other: All systems not noted in ROS Statement are negative. Past Medical History Past Medical History: Diabetes Mellitus, GERD/Reflux, Hyperlipidemia, Hypertension, Syncope Additional Past Medical History / Comment(s): Pt recently admitted to [facility] on 07/21/21 with uncontrolled IDDM and hyperkalemia. Other hx: Recurrent pancreatitis, hypertriglyceridemia, elevated lipase, IDDM type II, UTI, chronic low back pain, bulging discs, dental abscesses in past. History of Any Multi-Drug Resistant Organisms: MRSA Date of last positivie culture/infection: 03/01/23 MDRO Source:: Abdomen Past Surgical History: Tubal Ligation Additional Past Surgical History / Comment(s): Age 7 had VSD repair, Past Anesthesia/Blood Transfusion Reactions: No Reported Reaction Past Psychological History: No Psychological Hx Reported Smoking Status: Former smoker, Second hand smoke exposure, Vaper Past Alcohol Use History: None Reported Past Drug Use History: None Reported - Past Family History Mother Family Medical History: No Reported History Additional Family Medical History / Comment(s): Mother was healthy. She is , pt cannot recall cause of . Father Family Medical History: Pneumonia Additional Family Medical History / Comment(s): Father at the age of 67yrs from pneumonia General Exam General appearance: alert, in no apparent distress Eye exam: Present: normal appearance Neck exam: Present: normal inspection Respiratory exam: Present: normal lung sounds bilaterally Cardiovascular Exam: Present: regular rate, normal rhythm GI/Abdominal exam: Present: soft Neurological exam: Present: alert, oriented X3 Skin exam: Present: warm, dry Course Vital Signs 05/14/23 05/15/23 23:43 00:22 Temperature 97.9 F Pulse Rate 75 Respiratory 18 18 Rate Blood Pressure 128/74 O2 Sat by Pulse 97 Oximetry Medical Decision Making - Medical Decision Making Was pt. sent in by a medical professional or institution (ROSALIE Flaherty, CHIROPRACTIC PRACTICE MANAGER, urgent care, hospital, or care home...) When possible be specific @ -No Did you speak to anyone other than the patient for history (EMS, parent, family, police, friend...)? What history was obtained from this source @ -No Did you review nursing and triage notes (agree or disagree)? Why? @ -I reviewed and agree with nursing and triage notes Were old charts reviewed (outside hosp., previous admission, EMS record, old EKG, old radiological studies, urgent care reports/EKG's, care home records)? Report findings @ -No old charts were reviewed Differential Diagnosis (chest pain, altered mental status, abdominal pain women, abdominal pain men, vaginal bleeding, weakness, fever, dyspnea, syncope, headache, dizziness, GI bleed, back pain, seizure, CVA, palpatations, mental health, musculoskeletal)? @ -Differential Fever: Pneumonia, viral URI, endocarditis, myocarditis, pericarditis, otitis, sinusitis, peritonsillar Abscess, retropharyngeal Abscess, epiglottitis, peritonitis, appendicitis, Malissa cystitis, diverticulitis, hepatitis, colitis, UTI, PID, TOA, pyelonephritis, prostatitis, epididymitis, meningitis, encephalitis, pulmonary embolism, CVA, thyroid storm, pancreatitis, adrenal crisis, cavernous sinus thrombosis, this is not meant to be an all-inclusive list. EKG interpreted by me (3pts min.). @ -As above X-rays interpreted by me (1pt min.). @ -None done CT interpreted by me (1pt min.). @ -None done U/S interpreted by me (1pt. min.). @ -None done What testing was considered but not performed or refused? (CT, X-rays, U/S, labs)? Why? @ -None What meds were considered but not given or refused? Why? @ -None Did you discuss the management of the patient with other professionals (professionals i.e. , PA, CHIROPRACTIC PRACTICE MANAGER, lab, RT, psych nurse, adoption social worker, fire observer, teacher, account officer, test case developer)? Give summary @ -No Was smoking cessation discussed for >3mins.? @ -No Was critical care preformed (if so, how long)? @ -No Were there social determinants of health that impacted care today? How? (Homelessness, low income, unemployed, alcoholism, drug addiction, transportation, low edu. Level, literacy, decrease access to med. care, senior care, rehab)? @ -No Was there de-escalation of care discussed even if they declined (Discuss DNR or withdrawal of care, Hospice)? DNR status @ -No What co-morbidities impacted this encounter? (DM, HTN, Smoking, COPD, CAD, Cancer, CVA, ARF, Chemo, Hep., AIDS, mental health diagnosis, sleep apnea, morbid obesity)? @ -None Was patient admitted / discharged? Hospital course, mention meds given and route, prescriptions, significant lab abnormalities, going to OR and other pertinent info. @ -Discharge 52-year-old female presents to the ED with 1 day history of URI symptoms. At this time serology panel is unremarkable. Exam benign. Vital signs stable afebrile. Patient discharged home in stable condition. Discussed return precautions with patient who verbalized agreement. Provided prescription for ibuprofen and Tylenol. Undiagnosed new problem with uncertain prognosis? @ -No Drug Therapy requiring intensive monitoring for toxicity (Heparin, Nitro, Insulin, Cardizem)? @ -No Were any procedures done? @ -No Diagnosis/symptom? @ -Viral URI Acute, or Chronic, or Acute on Chronic? @ -Acute Uncomplicated (without systemic symptoms) or Complicated (systemic symptoms)? @ -Uncomplicated Side effects of treatment? @ -No Exacerbation, Progression, or Severe Exacerbation? @ -No Poses a threat to life or bodily function? How? (Chest pain, USA, MD, pneumonia, PE, COPD, DKA, ARF, appy, cholecystitis, CVA, Diverticulitis, Homicidal, Suicidal, threat to staff... and all critical care pts) @ -No - Lab Data Lab Results 05/15/23 Range/Units 00:19 Influenza Type A (PCR) Not Detected (Not Detectd) Influenza Type B (PCR) Not Detected (Not Detectd) RSV (PCR) Not Detected (Not Detectd) SARS-CoV-2 (PCR) Not Detected (Not Detectd) Disposition Clinical Impression: Viral URI Disposition: HOME SELF-CARE Condition: Good Instructions (If sedation given, give patient instructions): Upper Respiratory Infection (ED) Additional Instructions: Please return to the Emergency Department if symptoms worsen or any other concerns. Please use [id number] medications as needed for your symptoms. Follow-up with your primary care provider. Prescriptions: Ibuprofen [Motrin] 600 mg PO Q8HR PRN #30 tab PRN Reason: Pain Acetaminophen Tab [Tylenol] 650 mg PO Q6H #30 tab Is patient prescribed a controlled substance at d/c from ED?: No Referrals: Guillermo Cerda MD [Primary Care Provider] - 1-2 days Time of Disposition: 01:49
[2023-05-15 02:20] VITALS: BP 123/82; PULSE 71
== END 2023-05-15 01:57 | disposition home or self-care (01) ==
LOC: EC 23:33
DX: J06.9 Acute upper respiratory infection, unspecified (principal); E11.9 Type 2 diabetes mellitus without complications; E78.5 Hyperlipidemia, unspecified; I10 Essential (primary) hypertension; K21.9 Gastro-esophageal reflux disease without esophagitis; F17.290 Nicotine dependence, other tobacco product, uncomplicated; Z79.4 Long term (current) use of insulin; Z20.822 Contact with and (suspected) exposure to COVID-19; Z79.899 Other long term (current) drug therapy; Z88.1 Allergy status to other antibiotic agents
CPT/HCPCS: 87636; 99283

== ENCOUNTER 2023-06-12 19:09 | Emergency (ER) | payer MEDICARE, OTHER ==
[2023-06-12 19:15] LABS: Glucose,Whole Blood 335 mg/dL (70-110)
[2023-06-12 19:30] VITALS: RESP 18
--- NOTE | 2023-06-12 19:47 | ED ---
General Adult HPI - General Chief complaint: Recheck/Abnormal Lab/Rx Stated complaint: high blood sugar Time Seen by Provider: 06/12/23 19:22 Source: patient, EMS Mode of arrival: EMS Limitations: no limitations - History of Present Illness Initial comments: 52-year-old female presenting to the ED with a chief complaint of cough. Patient reports over the past few weeks has had cough. Over the past few days it has become more productive. Additionally notes over the past few days has been having trouble sleeping and has had some bodyaches as well. No fever or chills. No chest pain or shortness of breath. Patient also does note her blood sugar was high earlier. No abdominal pain. No nausea or vomiting. No other complaints at this time. - Related Data Home Medications Medication Instructions Recorded Confirmed Atorvastatin [Lipitor] 80 mg PO HS 06/25/19 04/14/23 lisinopriL 40 mg PO DAILY 09/24/20 04/14/23 traZODone HCL 50 mg PO HS PRN 01/11/21 04/14/23 Ergocalciferol (Vitamin D2) 1,250 mcg PO TU 03/03/21 04/14/23 [Drisdol (50,000 Iu)] Esomeprazole Magnesium [NexIUM] 20 mg PO DAILY 01/30/22 04/14/23 INSULIN ASPART (NovoLOG) [NovoLOG 20 unit SQ AC-TID 11/26/22 04/14/23 (formulary)] Albuterol Inhaler [Ventolin Hfa 2 puff INHALATION RT-QID 03/01/23 04/14/23 Inhaler] Previous Rx's Medication Instructions Recorded amLODIPine [Norvasc] 10 mg PO DAILY #30 tab 03/11/23 hydrALAZINE HCL [Apresoline] 25 mg PO BID #60 tab 03/11/23 Doxycycline Hyclate 100 mg PO BID 10 Days #20 tab 04/19/23 cefUROXime axetiL [Ceftin] 500 mg PO BID 10 Days #20 tab 04/19/23 Insulin Detemir (Levemir) [Levemir] 130 unit SQ DAILY@0700 #60 each 04/21/23 Acetaminophen Tab [Tylenol] 650 mg PO Q6H #30 tab 05/15/23 Ibuprofen [Motrin] 600 mg PO Q8HR PRN #30 tab 05/15/23 Allergies Allergy/AdvReac Type Severity Reaction Status Date / Time levofloxacin [From Levaquin] Allergy Rash/Hives Verified 06/12/23 19:21 Review of Systems ROS Statement: Those systems with pertinent positive or pertinent negative responses have been documented in the HPI. ROS Other: All systems not noted in ROS Statement are negative. Past Medical History Past Medical History: Diabetes Mellitus, GERD/Reflux, Hyperlipidemia, Hypertens ion, Syncope Additional Past Medical History / Comment(s): Pt recently admitted to [facility] on 07/21/21 with uncontrolled IDDM and hyperkalemia. Other hx: Recurrent pancreatitis, hypertriglyceridemia, elevated lipase, IDDM type II, UTI, chronic low back pain, bulging discs, dental abscesses in past. History of Any Multi-Drug Resistant Organisms: MRSA Date of last positivie culture/infection: 03/01/23 MDRO Source:: Abdomen Past Surgical History: Tubal Ligation Additional Past Surgical History / Comment(s): Age 7 had VSD repair, tumor removal 03/2023 Past Anesthesia/Blood Transfusion Reactions: No Reported Reaction Past Psychological History: No Psychological Hx Reported Smoking Status: Former smoker, Second hand smoke exposure, Vaper Past Alcohol Use History: None Reported Past Drug Use History: None Reported - Past Family History Mother Family Medical History: No Reported History Additional Family Medical History / Comment(s): Mother was healthy. She is , pt cannot recall cause of . Father Family Medical History: Pneumonia Additional Family Medical History / Comment(s): Father at the age of 67yrs from pneumonia General Exam Limitations: no limitations General appearance: alert Eye exam: Present: normal appearance Neck exam: Present: normal inspection Respiratory exam: Present: normal lung sounds bilaterally Cardiovascular Exam: Present: regular rate, normal rhythm GI/Abdominal exam: Present: soft (No rebound guarding or rigidity. No tenderness to palpation.) Neurological exam: Present: alert, oriented X3 Skin exam: Present: warm, dry Course Vital Signs 06/12/23 06/12/23 19:18 19:25 Temperature 99.0 F Pulse Rate 65 Respiratory 18 18 Rate Blood Pressure 160/63 O2 Sat by Pulse 100 Oximetry Medical Decision Making - Medical Decision Making Was pt. sent in by a medical professional or institution (, PA, WEB DESIGN INSTRUCTOR, urgent care, hospital, or prison...) When possible be specific @ -No Did you speak to anyone other than the patient for history (EMS, parent, family, police, friend...)? What history was obtained from this source @ -No Did you review nursing and triage notes (agree or disagree)? Why? @ -I reviewed and agree with nursing and triage notes Were old charts reviewed (outside hosp., previous admission, EMS record, old EKG, old radiological studies, urgent care reports/EKG's, prison records)? Report findings @ -No old charts were reviewed Differential Diagnosis (chest pain, altered mental status, abdominal pain women, abdominal pain men, vaginal bleeding, weakness, fever, dyspnea, syncope, headache, dizziness, GI bleed, back pain, seizure, CVA, palpatations, mental health, musculoskeletal)? @ -Differential Dyspnea: Coronary syndrome, arrhythmia, tamponade, asthma, COPD, pulmonary embolism, pneumonia, pneumothorax, pulmonary effusion, anaphylaxis, diabetic ketoacidosis, flailed chest, pulmonary contusion, diaphragmatic rupture, anemia, neuromuscular, this is not meant to be an all-inclusive list. EKG interpreted by me (3pts min.). @ -As above X-rays interpreted by me (1pt min.). @ -Chest x-ray interpreted by me showing no evidence of pneumonia or other acute finding. CT interpreted by me (1pt min.). @ -None done U/S interpreted by me (1pt. min.). @ -None done What testing was considered but not performed or refused? (CT, X-rays, U/S, labs)? Why? @ -None What meds were considered but not given or refused? Why? @ -None Did you discuss the management of the patient with other professionals (professionals i.e. , PA, WEB DESIGN INSTRUCTOR, lab, RT, psych nurse, social service manager, pals specialist, teacher, court collections officer, immigration case worker)? Give summary @ -No Was smoking cessation discussed for >3mins.? @ -No Was critical care preformed (if so, how long)? @ -No Were there social determinants of health that impacted care today? How? (Homelessness, low income, unemployed, alcoholism, drug addiction, transportation, low edu. Level, literacy, decrease access to med. care, [facility], rehab)? @ -No Was there de-escalation of care discussed even if they declined (Discuss DNR or withdrawal of care, Hospice)? DNR status @ -No What co-morbidities impacted this encounter? (DM, HTN, Smoking, COPD, CAD, Can cer, CVA, ARF, Chemo, Hep., AIDS, mental health diagnosis, sleep apnea, morbid obesity)? @ -None Was patient admitted / discharged? Hospital course, mention meds given and route, prescriptions, significant lab abnormalities, going to OR and other pertinent info. @ -Discharge 52-year-old female presenting to the ED with complaints of cough over the past few weeks and more recently myalgias, fatigue, difficulty sleeping. Chest x-ray revealed no acute findings. Laboratory studies at this time largely unremarkable. Vital signs stable afebrile. Discharged home in stable conditio n. Symptoms likely viral in nature. Discussed return precautions with patient who verbalized agreement. Undiagnosed new problem with uncertain prognosis? @ -No Drug Therapy requiring intensive monitoring for toxicity (Heparin, Nitro, Insulin, Cardizem)? @ -No Were any procedures done? @ -No Diagnosis/symptom? @ -Cough, fatigue Acute, or Chronic, or Acute on Chronic? @ -Acute Uncomplicated (without systemic symptoms) or Complicated (systemic symptoms)? @ -Uncomplicated Side effects of treatment? @ -No Exacerbation, Progression, or Severe Exacerbation? @ -No Poses a threat to life or bodily function? How? (Chest pain, USA, MA, pneumonia, PE, COPD, DKA, ARF, appy, cholecystitis, CVA, Diverticulitis, Homicidal, Suicidal, threat to staff... and all critical care pts) @ -No - Lab Data Result diagrams: 06/12/23 19:48 06/12/23 19:48 Lab Results 06/12/23 06/12/23 06/12/23 Range/Units 19:13 19:48 19:48 WBC 11.5 H (3.8-10.6) k/uL RBC 4.87 (3.80-5.40) m/uL Hgb 13.5 (11.4-16.0) gm/dL Hct 40.3 (34.0-46.0) % MCV 82.7 (80.0-100.0) fL MCH 27.7 (25.0-35.0) pg MCHC 33.5 (31.0-37.0) g/dL RDW 16.9 H (11.5-15.5) % Plt Count 449 (150-450) k/uL MPV 7.5 Neutrophils % 61 % Lymphocytes % 30 % Monocytes % 5 % Eosinophils % 2 % Basophils % 0 % Neutrophils # 7.0 (1.3-7.7) k/uL Lymphocytes # 3.5 (1.0-4.8) k/uL Monocytes # 0.5 (0-1.0) k/uL Eosinophils # 0.3 (0-0.7) k/uL Basophils # 0.1 (0-0.2) k/uL Anisocytosis Slight Microcytosis Slight Chloride WEB DESIGN INSTRUCTOR POC Glucose (mg/dL) 335 H (70-110) mg/dL POC Glu Product Development ID [place] Urine Color Urine Appearance (Clear) Urine pH (5.0-8.0) Ur Specific [place] (1.001-1.035) Urine Protein (Negative) Urine Glucose (UA) (Negative) Urine Ketones (Negative) Urine Blood (Negative) Urine Nitrite (Negative) Urine Bilirubin (Negative) Urine Urobilinogen (<2.0) mg/dL Ur Leukocyte Esterase (Negative) Urine RBC (0-5) /hpf Urine WBC (0-5) /hpf Ur Squamous Epith Cells (0-4) /hpf Urine Mucus (None) /hpf Influenza Type A (PCR) (Not Detectd) Influenza Type B (PCR) (Not Detectd) RSV (PCR) (Not Detectd) SARS-CoV-2 (PCR) (Not Detectd) 06/12/23 06/12/23 Range/Units 19:48 19:50 WBC (3.8-10.6) k/uL RBC (3.80-5.40) m/uL Hgb (11.4-16.0) gm/dL Hct (34.0-46.0) % MCV (80.0-100.0) fL MCH (25.0-35.0) pg MCHC (31.0-37.0) g/dL RDW (11.5-15.5) % Plt Count (150-450) k/uL MPV Neutrophils % % Lymphocytes % % Monocytes % % Eosinophils % % Basophils % % Neutrophils # (1.3-7.7) k/uL Lymphocytes # (1.0-4.8) k/uL Monocytes # (0-1.0) k/uL Eosinophils # (0-0.7) k/uL Basophils # (0-0.2) k/uL Anisocytosis Microcytosis Chloride POC Glucose (mg/dL) (70-110) mg/dL POC Glu Product Development ID Urine Color Yellow Urine Appearance Cloudy H (Clear) Urine pH 6.0 (5.0-8.0) Ur Specific [place] 1.025 (1.001-1.035) Urine Protein 2+ H (Negative) Urine Glucose (UA) 4+ H (Negative) Urine Ketones Negative (Negative) Urine Blood Negative (Negative) Urine Nitrite Negative (Negative) Urine Bilirubin Negative (Negative) Urine Urobilinogen 2.0 (<2.0) mg/dL Ur Leukocyte Esterase Negative (Negative) Urine RBC <1 (0-5) /hpf Urine WBC 4 (0-5) /hpf Ur Squamous Epith Cells 16 H (0-4) /hpf Urine Mucus Rare H (None) /hpf Influenza Type A (PCR) Not Detected (Not Detectd) Influenza Type B (PCR) Not Detected (Not Detectd) RSV (PCR) Not Detected (Not Detectd) SARS-CoV-2 (PCR) Not Detected (Not Detectd) Disposition Clinical Impression: Cough, Fatigue Disposition: HOME SELF-CARE Condition: Good Instructions (If sedation given, give patient instructions): Cold Symptoms (ED), Acute Cough (ED) Additional Instructions: Please return to the Emergency Department if symptoms worsen or any other concerns. Please follow-up with your PCP. Is patient prescribed a controlled substance at d/c from ED?: No Referrals: None,Stated [REFERRING] - 1-2 days Time of Disposition: 20:57
[2023-06-12] MEDS: SODIUM CHLORIDE 0.9% 1,000 ML IV STA (19:55)
[2023-06-12] MEDS: KETOROLAC 15 MG/ML 1 ML VIAL IVP STA (19:56)
[2023-06-12 20:13] LABS: Appearance,Urine Cloudy (Clear); Bilirubin,Urine Negative (Negative); Blood,Urine Negative (Negative); Color,Urine Yellow; Glucose,Urine (UA) 4+ (Negative); Ketones,Urine Negative (Negative); Leukocyte Esterase,Urine Negative (Negative); Mucus,Urine Rare /hpf; Nitrite,Urine Negative (Negative); Protein,Urine 2+ (Negative); RBC,Urine <1 /hpf (0-5); Specific Gravity,Urine 1.025 (1.001-1.035); Squamous Epithelial Cell,Urine 16 /hpf (0-4); WBC,Urine 4 /hpf (0-5)
--- NOTE | 2023-06-12 20:16 | XR ---
EXAMINATION TYPE: XR chest 2V DATE OF EXAM: 06/12/2023 7:55 PM CLINICAL INDICATION:Female, 52 years old with history of r/o pna; [facility] COMPARISON: 06/05/2023 TECHNIQUE: XR chest 2V. Frontal and lateral views of the chest.. FINDINGS: Lines/Tubes/Devices: No indwelling lines are seen. Heart/mediastinum: Heart size is normal. Mediastinum appears normal. Pulmonary vascularity: Not increased Lungs/Pleura: There is no evidence of pleural effusion, focal consolidation, or pneumothorax. Mildly coarsened interstitial markings and mild platelike atelectasis versus scarring in the left midlung z one again seen. Minimal left basilar subsegmental atelectasis. Musculoskeletal: No acute osseous abnormality demonstrated in the limits of the exam. Other findings: Sternotomy wires are present. IMPRESSION: No acute findings, or significant interval change.
[2023-06-12 20:32] LABS: Anisocytosis Slight; Basophils # (A) 0.1 k/uL (0-0.2); Basophils % (A) 0 %; Eosinophils # (A) 0.3 k/uL (0-0.7); Eosinophils % (A) 2 %; HCT 40.3 % (34.0-46.0); HGB 13.5 gm/dL (11.4-16.0); Lymphocytes # (A) 3.5 k/uL (1.0-4.8); Lymphocytes % (A) 30 %; MCH 27.7 pg (25.0-35.0); MCHC 33.5 g/dL (31.0-37.0); MCV 82.7 fL (80.0-100.0); Mean Platelet Volume 7.5; Microcytosis Slight; Monocytes # (A) 0.5 k/uL (0-1.0); Monocytes % (A) 5 %; Neutrophils % (A) 61 %; Platelet Count 449 k/uL (150-450); RBC 4.87 m/uL (3.80-5.40); RDW 16.9 % (11.5-15.5); WBC 11.5 k/uL (3.8-10.6)
[2023-06-12 21:49] LABS: ALT 23 U/L (4-34); AST 29 U/L (14-36); African American GFR (CKD) >90 (>60 ml/min/1.73 sqM); Albumin 3.2 g/dL (3.5-5.0); Alkaline Phosphatase 136 U/L (38-126); Anion Gap 9 mmol/L; Blood Urea Nitrogen 8 mg/dL (7-17); Calcium 8.2 mg/dL (8.4-10.2); Carbon Dioxide 19 mmol/L (22-30); Chloride 106 mmol/L (98-107); Glucose 244 mg/dL (74-99); Non-African American GFR(CKD) >90 (>60 ml/min/1.73 sqM); Potassium 3.9 mmol/L (3.5-5.1); Sodium 134 mmol/L (137-145); Total Bilirubin 0.4 mg/dL (0.2-1.3); Total Protein 6.1 g/dL (6.3-8.2)
[2023-06-12 23:02] VITALS: BP 144/95; PULSE 73; TEMP 97.9
== END 2023-06-12 22:33 | disposition home or self-care (01) ==
LOC: EC 19:09
DX: R05.9 Cough, unspecified (principal); R53.83 Other fatigue; E11.9 Type 2 diabetes mellitus without complications; K21.9 Gastro-esophageal reflux disease without esophagitis; E78.5 Hyperlipidemia, unspecified; I10 Essential (primary) hypertension; F17.290 Nicotine dependence, other tobacco product, uncomplicated; Z79.899 Other long term (current) drug therapy; Z79.4 Long term (current) use of insulin; Z20.822 Contact with and (suspected) exposure to COVID-19
CPT/HCPCS: 36415; 80053; 85025; 81001; 87636; 71046; 99284; 96374; 96361; J1885

== ENCOUNTER 2023-06-14 00:42 | Emergency (ER) | payer MEDICARE, OTHER ==
[2023-06-14 01:05] LABS: Glucose,Whole Blood 372 mg/dL (70-110)
--- NOTE | 2023-06-14 01:41 | ED ---
General Adult HPI - General Source: patient Mode of arrival: EMS <Jaswinder Sotelo - Last Filed: 06/14/23 03:30> <Servando Hernandez - Last Filed: 06/14/23 09:51> - General Chief complaint: Weakness Stated complaint: Weakness, High blood pressure Time Seen by Provider: 06/14/23 01:14 - History of Present Illness Initial comments: 52-year-old female presented to the ED with chief complaint of cough. Patient reports ongoing cough now for the past few days. Additionally reports fatigue and difficulty sleeping over the past few days. Today, reports while she was laying down started to feel pain in the middle of her chest. Reports pain is sharp in nature. Pain does not radiate. Pain improved with her laying down. Worsens with cough. No shortness of breath. No other complaints at this time. (Jaswinder Sotelo) - Related Data Home Medications Medication Instructions Recorded Confirmed Atorvastatin [Lipitor] 80 mg PO HS 06/25/19 04/14/23 lisinopriL 40 mg PO DAILY 09/24/20 04/14/23 traZODone HCL 50 mg PO HS PRN 01/11/21 04/14/23 Ergocalciferol (Vitamin D2) 1,250 mcg PO TU 03/03/21 04/14/23 [Drisdol (50,000 Iu)] Esomeprazole Magnesium [NexIUM] 20 mg PO DAILY 01/30/22 04/14/23 INSULIN ASPART (NovoLOG) [NovoLOG 20 unit SQ AC-TID 11/26/22 04/14/23 (formulary)] Albuterol Inhaler [Ventolin Hfa 2 puff INHALATION RT-QID 03/01/23 04/14/23 Inhaler] Previous Rx's Medication Instructions Recorded amLODIPine [Norvasc] 10 mg PO DAILY #30 tab 03/11/23 hydrALAZINE HCL [Apresoline] 25 mg PO BID #60 tab 03/11/23 Doxycycline Hyclate 100 mg PO BID 10 Days #20 tab 04/19/23 cefUROXime axetiL [Ceftin] 500 mg PO BID 10 Days #20 tab 04/19/23 Insulin Detemir (Levemir) [Levemir] 130 unit SQ DAILY@0700 #60 each 04/21/23 Acetaminophen Tab [Tylenol] 650 mg PO Q6H #30 tab 05/15/23 Ibuprofen [Motrin] 600 mg PO Q8HR PRN #30 tab 05/15/23 Allergies Allergy/AdvReac Type Severity Reaction Status Date / Time levofloxacin [From Levaquin] Allergy Rash/Hives Verified 06/14/23 00:59 Review of Systems ROS Other: All systems not noted in ROS Statement are negative. <Jaswinder Sotelo - Last Filed: 06/14/23 03:30> ROS Other: All systems not noted in ROS Statement are negative. <Servando Hernandez - Last Filed: 06/14/23 09:51> ROS Statement: Those systems with pertinent positive or pertinent negative responses have been documented in the HPI. Past Medical History Past Medical History: Diabetes Mellitus, GERD/Reflux, Hyperlipidemia, Hyperte nsion, Syncope Additional Past Medical History / Comment(s): Pt recently admitted to [facility] on 07/21/21 with uncontrolled IDDM and hyperkalemia. Other hx: Recurrent pancreatitis, hypertriglyceridemia, elevated lipase, IDDM type II, UTI, chronic low back pain, bulging discs, dental abscesses in past. History of Any Multi-Drug Resistant Organisms: MRSA Date of last positivie culture/infection: 03/01/23 MDRO Source:: Abdomen Past Surgical History: Tubal Ligation Additional Past Surgical History / Comment(s): Age 7 had VSD repair, tumor removal 03/2023 Past Anesthesia/Blood Transfusion Reactions: No Reported Reaction Past Psychological History: No Psychological Hx Reported Smoking Status: Former smoker, Second hand smoke exposure, Vaper Past Alcohol Use History: None Reported Past Drug Use History: None Reported - Past Family History Mother Family Medical History: No Reported History Additional Family Medical History / Comment(s): Mother was healthy. She is , pt cannot recall cause of . Father Family Medical History: Pneumonia Additional Family Medical History / Comment(s): Father at the age of 67yrs from pneumonia <Jaswinder Sotelo - Last Filed: 06/14/23 03:30> General Exam General appearance: alert, in no apparent distress Eye exam: Present: normal appearance Neck exam: Present: normal inspection Respiratory exam: Present: normal lung sounds bilaterally Cardiovascular Exam: Present: regular rate, normal rhythm GI/Abdominal exam: Present: soft Neurological exam: Present: alert, oriented X3 Skin exam: Present: warm, dry <Jaswinder Sotelo - Last Filed: 06/14/23 03:30> Course Vital Signs 06/14/23 06/14/23 06/14/23 03:18 04:44 05:00 Temperature 98.4 F Pulse Rate 56 L 52 L 48 L Respiratory 19 20 20 Rate Blood Pressure 163/91 172/97 160/80 O2 Sat by Pulse 98 96 Oximetry 06/14/23 08:28 Temperature Pulse Rate 49 L Respiratory 16 Rate Blood Pressure 173/71 O2 Sat by Pulse 97 Oximetry Medical Decision Making <Jaswinder Sotelo - Last Filed: 06/14/23 03:30> - Lab Data Result diagrams: 06/14/23 03:08 06/14/23 03:08 <Servando Hernandez - Last Filed: 06/14/23 09:51> - Medical Decision Making Was pt. sent in by a medical professional or institution (, PA, BANKING SUPERVISOR, urgent care, hospital, or long-term...) When possible be specific @ -No Did you speak to anyone other than the patient for history (EMS, parent, family, police, friend...)? What history was obtained from this source @ -No Did you review nursing and triage notes (agree or disagree)? Why? @ -I reviewed and agree with nursing and triage notes Were old charts reviewed (outside hosp., previous admission, EMS record, old EKG, old radiological studies, urgent care reports/EKG's, long-term records)? Report findings @ -No old charts were reviewed Differential Diagnosis (chest pain, altered mental status, abdominal pain women, abdominal pain men, vaginal bleeding, weakness, fever, dyspnea, syncope, headache, dizziness, GI bleed, back pain, seizure, CVA, palpatations, mental h ealth, musculoskeletal)? @ -Differential Chest Pain: Stable Angina, Unstable Angina, STEMI, NSTEMI Aortic Dissection, Pneumothorax, Musculoskeletal, Esophageal Spasm GERD, Cholecystitis, Pancreatitis, Zoster, this is not meant to be an all-inclusive list. EKG interpreted by me (3pts min.). @ -EKG interpreted by me showing a sinus rhythm at [address] or T wave changes. TN 151, QRS 86, QT/QTc 413/403 X-rays interpreted by me (1pt min.). @ -Pain CT interpreted by me (1pt min.). @ -None done U/S interpreted by me (1pt. min.). @ -None done What testing was considered but not performed or refused? (CT, X-rays, U/S, labs)? Why? @ -None What meds were considered but not given or refused? Why? @ -None Did you discuss the management of the patient with other professionals (professionals i.e. Dr., PA, BANKING SUPERVISOR, lab, RT, psych nurse, director of social media marketing, study specialist, teacher, workplace rehabilitation officer, medical case worker)? Give summary @ -No Was smoking cessation discussed for >3mins.? @ -No Was critical care preformed (if so, how long)? @ -No Were there social determinants of health that impacted care today? How? (Homelessness, low income, unemployed, alcoholism, drug addiction, transportation, low edu. Level, literacy, decrease access to med. care, group home, rehab)? @ -No Was there de-escalation of care discussed even if they declined (Discuss DNR or withdrawal of care, Hospice)? DNR status @ -No What co-morbidities impacted this encounter? (DM, HTN, Smoking, COPD, CAD, Cancer, CVA, ARF, Chemo, Hep., AIDS, mental health diagnosis, sleep apnea, morbid obesity)? @ -None Was patient admitted / discharged? Hospital course, mention meds given and route, prescriptions, significant lab abnormalities, going to OR and other pertinent info. @ -Pending 52-year-old female presents complaints of fatigue, cough, inability to sleep and today developed some chest pain. Disposition at this time is pending and case signed out to my attending physician, Dr. Gray. (Jaswinder Sotelo) Patient reevaluated by myself, Dr. Hernanedz. Patient resting comfortably in bed without complaints. Patient states she does have chest discomfort similar to this at least once a week. Previous visits reviewed. Results reviewed. Chest x-ray interpreted by myself shows no acute process Patient updated on results and plan. Patient would like to be discharged home. Diagnosis: Fatigue, acute SUPERVISORY NOTE: I have reviewed all documentation, results, and performed the MDM in its entirety, which constitutes a substantive portion of the visit. (Servando Hernandez) - Lab Data Lab Results 06/14/23 06/14/23 06/14/23 Range/Units 01:03 02:41 03:08 WBC 9.1 (3.8-10.6) k/uL RBC 4.48 (3.80-5.40) m/uL Hgb 12.0 (11.4-16.0) gm/dL Hct 37.2 (34.0-46.0) % MCV 83.2 (80.0-100.0) fL MCH 26.8 (25.0-35.0) pg MCHC 32.2 (31.0-37.0) g/dL RDW 17.1 H (11.5-15.5) % Plt Count 420 (150-450) k/uL MPV 7.6 Neutrophils % 59 % Lymphocytes % 31 % Monocytes % 4 % Eosinophils % 3 % Basophils % 0 % Neutrophils # 5.4 (1.3-7.7) k/uL Lymphocytes # 2.8 (1.0-4.8) k/uL Monocytes # 0.4 (0-1.0) k/uL Eosinophils # 0.3 (0-0.7) k/uL Basophils # 0.0 (0-0.2) k/uL Anisocytosis Slight Microcytosis Slight PT (10.0-12.5) sec INR (<1.2) APTT (22.0-30.0) sec Sodium (137-145) mmol/L Potassium (3.5-5.1) mmol/L Chloride (98-107) mmol/L Carbon Dioxide (22-30) mmol/L Anion Gap mmol/L BUN (7-17) mg/dL Creatinine (0.52-1.04) mg/dL Est GFR (CKD-EPI)AfAm (>60 ml/min/1.73 sqM) Est GFR (CKD-EPI)NonAf (>60 ml/min/1.73 sqM) Glucose (74-99) mg/dL POC Glucose (mg/dL) 372 H (70-110) mg/dL POC Glu Medical Assistant Float ID Bogdan Vaughn Calcium (8.4-10.2) mg/dL Magnesium (1.6-2.3) mg/dL Total Bilirubin (0.2-1.3) mg/dL AST (14-36) U/L ALT (4-34) U/L Alkaline Phosphatase (38-126) U/L Troponin I (0.000-0.034) ng/mL NT-Pro-B Natriuret Pep pg/mL Total Protein (6.3-8.2) g/dL Albumin (3.5-5.0) g/dL Urine Color Colorless Urine Appearance Clear (Clear) Urine pH 6.0 (5.0-8.0) Ur Specific [place] 1.012 (1.001-1.035) Urine Protein 1+ H (Negative) Urine Glucose (UA) 4+ H (Negative) Urine Ketones Negative (Negative) Urine Blood Negative (Negative) Urine Nitrite Negative (Negative) Urine Bilirubin Negative (Negative) Urine Urobilinogen <2.0 (<2.0) mg/dL Ur Leukocyte Esterase Negative (Negative) Urine WBC 3 (0-5) /hpf Ur Squamous Epith Cells 4 (0-4) /hpf Amorphous Sediment Rare H (None) /hpf Hyaline Casts 4 H (0-2) /lpf Urine Mucus Rare H (None) /hpf Influenza Type A (PCR) (Not Detectd) Influenza Type B (PCR) (Not Detectd) RSV (PCR) (Not Detectd) SARS-CoV-2 (PCR) (Not Detectd) 06/14/23 06/14/23 06/14/23 Range/Units 03:08 03:08 03:08 WBC (3.8-10.6) k/uL RBC (3.80-5.40) m/uL Hgb (11.4-16.0) gm/dL Hct (34.0-46.0) % MCV (80.0-100.0) fL MCH (25.0-35.0) pg MCHC (31.0-37.0) g/dL RDW (11.5-15.5) % Plt Count (150-450) k/uL MPV Neutrophils % % Lymphocytes % % Monocytes % % Eosinophils % % Basophils % % Neutrophils # (1.3-7.7) k/uL Lymphocytes # (1.0-4.8) k/uL Monocytes # (0-1.0) k/uL Eosinophils # (0-0.7) k/uL Basophils # (0-0.2) k/uL Anisocytosis Microcytosis PT 9.7 L (10.0-12.5) sec INR 0.9 (<1.2) APTT 22.3 (22.0-30.0) sec Sodium 132 L (137-145) mmol/L Potassium 4.3 (3.5-5.1) mmol/L Chloride 102 (98-107) mmol/L Carbon Dioxide 19 L (22-30) mmol/L Anion Gap 11 mmol/L BUN 14 (7-17) mg/dL Creatinine 0.60 (0.52-1.04) mg/dL Est GFR (CKD-EPI)AfAm >90 (>60 ml/min/1.73 sqM) Est GFR (CKD-EPI)NonAf >90 (>60 ml/min/1.73 sqM) Glucose 338 H (74-99) mg/dL POC Glucose (mg/dL) (70-110) mg/dL POC Glu Medical Assistant Float ID Calcium 8.5 (8.4-10.2) mg/dL Magnesium 1.3 L (1.6-2.3) mg/dL Total Bilirubin 0.4 (0.2-1.3) mg/dL AST 24 (14-36) U/L ALT 24 (4-34) U/L Alkaline Phosphatase 123 (38-126) U/L Troponin I <0.012 (0.000-0.034) ng/mL NT-Pro-B Natriuret Pep 256 pg/mL Total Protein 6.0 L (6.3-8.2) g/dL Albumin 3.3 L (3.5-5.0) g/dL Urine Color Urine Appearance (Clear) Urine pH (5.0-8.0) Ur Specific [place] (1.001-1.035) Urine Protein (Negative) Urine Glucose (UA) (Negative) Urine Ketones (Negative) Urine Blood (Negative) Urine Nitrite (Negative) Urine Bilirubin (Negative) Urine Urobilinogen (<2.0) mg/dL Ur Leukocyte Esterase (Negative) Urine WBC (0-5) /hpf Ur Squamous Epith Cells (0-4) /hpf Amorphous Sediment (None) /hpf Hyaline Casts (0-2) /lpf Urine Mucus (None) /hpf Influenza Type A (PCR) (Not Detectd) Influenza Type B (PCR) (Not Detectd) RSV (PCR) (Not Detectd) SARS-CoV-2 (PCR) (Not Detectd) 06/14/23 06/14/23 Range/Units 03:08 06:38 WBC (3.8-10.6) k/uL RBC (3.80-5.40) m/uL Hgb (11.4-16.0) gm/dL Hct (34.0-46.0) % MCV (80.0-100.0) fL MCH (25.0-35.0) pg MCHC (31.0-37.0) g/dL RDW (11.5-15.5) % Plt Count (150-450) k/uL MPV Neutrophils % % Lymphocytes % % Monocytes % % Eosinophils % % Basophils % % Neutrophils # (1.3-7.7) k/uL Lymphocytes # (1.0-4.8) k/uL Monocytes # (0-1.0) k/uL Eosinophils # (0-0.7) k/uL Basophils # (0-0.2) k/uL Anisocytosis Microcytosis PT (10.0-12.5) sec INR (<1.2) APTT (22.0-30.0) sec Sodium (137-145) mmol/L Potassium (3.5-5.1) mmol/L Chloride (98-107) mmol/L Carbon Dioxide (22-30) mmol/L Anion Gap mmol/L BUN (7-17) mg/dL Creatinine (0.52-1.04) mg/dL Est GFR (CKD-EPI)AfAm (>60 ml/min/1.73 sqM) Est GFR (CKD-EPI)NonAf (>60 ml/min/1.73 sqM) Glucose (74-99) mg/dL POC Glucose (mg/dL) (70-110) mg/dL POC Glu Medical Assistant Float ID Calcium (8.4-10.2) mg/dL Magnesium (1.6-2.3) mg/dL Total Bilirubin (0.2-1.3) mg/dL AST (14-36) U/L ALT (4-34) U/L Alkaline Phosphatase (38-126) U/L Troponin I <0.012 (0.000-0.034) ng/mL NT-Pro-B Natriuret Pep pg/mL Total Protein (6.3-8.2) g/dL Albumin (3.5-5.0) g/dL Urine Color Urine Appearance (Clear) Urine pH (5.0-8.0) Ur Specific [place] (1.001-1.035) Urine Protein (Negative) Urine Glucose (UA) (Negative) Urine Ketones (Negative) Urine Blood (Negative) Urine Nitrite (Negative) Urine Bilirubin (Negative) Urine Urobilinogen (<2.0) mg/dL Ur Leukocyte Esterase (Negative) Urine WBC (0-5) /hpf Ur Squamous Epith Cells (0-4) /hpf Amorphous Sediment (None) /hpf Hyaline Casts (0-2) /lpf Urine Mucus (None) /hpf Influenza Type A (PCR) Not Detected (Not Detectd) Influenza Type B (PCR) Not Detected (Not Detectd) RSV (PCR) Not Detected (Not Detectd) SARS-CoV-2 (PCR) Not Detected (Not Detectd) Disposition <Jaswinder Sotelo - Last Filed: 06/14/23 03:30> Is patient prescribed a controlled substance at d/c from ED?: No Time of Disposition: 09:51 <Servando Hernandez - Last Filed: 06/14/23 09:51> Clinical Impression: Fatigue, Hypomagnesemia Disposition: HOME SELF-CARE Condition: Stable Instructions (If sedation given, give patient instructions): Fatigue (ED), Chest Pain (ED) Additional Instructions: Please follow-up with your doctor Saturday. Return for pain, difficulty breathing, weakness, fever, worsening or changing symptoms or other concerns Referrals: Guillermo Cerda MD [Primary Care Provider] - 1-2 days
[2023-06-14 03:30] VITALS: TEMP 98.4
[2023-06-14 03:30] LABS: Chloride 102 mmol/L (98-107)
[2023-06-14 03:31] LABS: ALT 24 U/L (4-34); AST 24 U/L (14-36); African American GFR (CKD) >90 (>60 ml/min/1.73 sqM); Albumin 3.3 g/dL (3.5-5.0); Alkaline Phosphatase 123 U/L (38-126); Anion Gap 11 mmol/L; Blood Urea Nitrogen 14 mg/dL (7-17); Calcium 8.5 mg/dL (8.4-10.2); Carbon Dioxide 19 mmol/L (22-30); Glucose 338 mg/dL (74-99); Magnesium 1.3 mg/dL (1.6-2.3); Non-African American GFR(CKD) >90 (>60 ml/min/1.73 sqM); Potassium 4.3 mmol/L (3.5-5.1); Sodium 132 mmol/L (137-145); Total Bilirubin 0.4 mg/dL (0.2-1.3)
[2023-06-14 03:33] LABS: Anisocytosis Slight; Basophils % (A) 0 %; Eosinophils # (A) 0.3 k/uL (0-0.7); Eosinophils % (A) 3 %; HCT 37.2 % (34.0-46.0); Lymphocytes # (A) 2.8 k/uL (1.0-4.8); Lymphocytes % (A) 31 %; MCH 26.8 pg (25.0-35.0); MCHC 32.2 g/dL (31.0-37.0); MCV 83.2 fL (80.0-100.0); Mean Platelet Volume 7.6; Microcytosis Slight; Monocytes # (A) 0.4 k/uL (0-1.0); Monocytes % (A) 4 %; Neutrophils # (A) 5.4 k/uL (1.3-7.7); Neutrophils % (A) 59 %; Platelet Count 420 k/uL (150-450); RBC 4.48 m/uL (3.80-5.40); RDW 17.1 % (11.5-15.5); WBC 9.1 k/uL (3.8-10.6)
[2023-06-14 03:38] LABS: NT-Pro-B-Type Natriuretic Pept 256 pg/mL
--- NOTE | 2023-06-14 03:38 | XR ---
EXAM: XR Chest, 2 Views CLINICAL HISTORY: ITS.REASON XR Reason: Chest Pain TECHNIQUE: Frontal and lateral views of the chest. COMPARISON: 06/05/2023 FINDINGS: Lungs: Prominent central bronchovascular markings, top normal. No consolidation. Pleural space: Bilateral subpleural deposition of fat/pleural thickening. No pneumothorax. Heart: Unremarkable. No cardiomegaly. Mediastinum: Prominent cardiomediastinal silhouette, top normal. Bones/joints: Old left lateral rib fractures. IMPRESSION: No acute findings in the chest.
[2023-06-14 03:42] LABS: Amorphous Sediment,Urine Rare /hpf; Appearance,Urine Clear (Clear); Bilirubin,Urine Negative (Negative); Blood,Urine Negative (Negative); Color,Urine Colorless; Glucose,Urine (UA) 4+ (Negative); Hyaline Casts,Urine 4 /lpf (0-2); Ketones,Urine Negative (Negative); Leukocyte Esterase,Urine Negative (Negative); Mucus,Urine Rare /hpf; Nitrite,Urine Negative (Negative); Protein,Urine 1+ (Negative); Specific Gravity,Urine 1.012 (1.001-1.035); Squamous Epithelial Cell,Urine 4 /hpf (0-4); Urobilinogen,Urine <2.0 mg/dL (<2.0); WBC,Urine 3 /hpf (0-5)
[2023-06-14 03:44] LABS: INR 0.9 (<1.2); Partial Thromboplastin Time 22.3 sec (22.0-30.0); Prothrombin Time 9.7 sec (10.0-12.5)
[2023-06-14] MEDS: INSULIN REGULAR 100 UNIT/ML VIAL (IV) IV ONE (04:55)
[2023-06-14] MEDS: MAGNESIUM SULFATE-D5W PMX 1 GM in DEXTROSE/WATER 1 100ML.BAG IVPB SCH (04:56)
[2023-06-14] MEDS: ONDANSETRON 4 MG/2 ML VIAL IVP STA (06:49)
[2023-06-14] MEDS: MORPHINE SULFATE 4 MG/ML SYRINGE IVP STA (06:49)
[2023-06-14 08:57] VITALS: RESP 16
[2023-06-14 10:39] VITALS: BP 144/73; PULSE 60
== END 2023-06-14 10:08 | disposition home or self-care (01) ==
LOC: EC 00:42
DX: E83.42 Hypomagnesemia (principal); E11.9 Type 2 diabetes mellitus without complications; I10 Essential (primary) hypertension; E78.1 Pure hyperglyceridemia; K21.9 Gastro-esophageal reflux disease without esophagitis; Z20.822 Contact with and (suspected) exposure to COVID-19; Z79.4 Long term (current) use of insulin; Z79.899 Other long term (current) drug therapy; Z88.1 Allergy status to other antibiotic agents
CPT/HCPCS: 36415; 93005; 83880; 80053; 83735; 84484; 85025; 85610; 85730; 81001; 87636; 71046; 99285; 96365; 96366 ×2; 96375 ×2; J2270; J2405; J3475

== ENCOUNTER 2023-06-18 06:00 | Emergency (ER) | payer MEDICARE, OTHER ==
--- NOTE | 2023-06-18 06:18 | ED ---
URI HPI - General Chief Complaint: Upper Respiratory Infection Stated Complaint: cough,congestion Time Seen by Provider: 06/18/23 06:04 Source: patient, RN notes reviewed Mode of arrival: EMS Limitations: no limitations - History of Present Illness Initial Comments: This is a 52-year-old female who presents to the emergency department for coughing and congestion. Symptoms started about a week ago. States that the cough is what is frustrating her the most, as it is not getting better. The cough is nonproductive. She was evaluated here for this 4 days ago, and at that point states that the workup was normal. Denies any chest pain or shortness of breath. Also reports body aches. She is not currently taking any medication for her symptoms. Denies any fever/chills. Unsure if she has had sick contacts. MD Complaint: cough, nasal congestion - Related Data Home Medications Medication Instructions Recorded Confirmed Atorvastatin [Lipitor] 80 mg PO HS 06/25/19 04/14/23 lisinopriL 40 mg PO DAILY 09/24/20 04/14/23 traZODone HCL 50 mg PO HS PRN 01/11/21 04/14/23 Ergocalciferol (Vitamin D2) 1,250 mcg PO TU 03/03/21 04/14/23 [Drisdol (50,000 Iu)] Esomeprazole Magnesium [NexIUM] 20 mg PO DAILY 01/30/22 04/14/23 INSULIN ASPART (NovoLOG) [NovoLOG 20 unit SQ AC-TID 11/26/22 04/14/23 (formulary)] Albuterol Inhaler [Ventolin Hfa 2 puff INHALATION RT-QID 03/01/23 04/14/23 Inhaler] Previous Rx's Medication Instructions Recorded amLODIPine [Norvasc] 10 mg PO DAILY #30 tab 03/11/23 hydrALAZINE HCL [Apresoline] 25 mg PO BID #60 tab 03/11/23 Doxycycline Hyclate 100 mg PO BID 10 Days #20 tab 04/19/23 cefUROXime axetiL [Ceftin] 500 mg PO BID 10 Days #20 tab 04/19/23 Insulin Detemir (Levemir) [Levemir] 130 unit SQ DAILY@0700 #60 each 04/21/23 Acetaminophen Tab [Tylenol] 650 mg PO Q6H #30 tab 05/15/23 Ibuprofen [Motrin] 600 mg PO Q8HR PRN #30 tab 05/15/23 Amoxic-Pot Clav 875-125Mg 1 tab PO Q12HR 7 Days #14 tab 06/18/23 [Augmentin 875-125] Benzonatate [Tessalon Perle] 200 mg PO TID PRN #20 capsule 06/18/23 Allergies Allergy/AdvReac Type Severity Reaction Status Date / Time levofloxacin [From Levaquin] Allergy Rash/Hives Verified 06/18/23 06:09 Review of Systems ROS Statement: Those systems with pertinent positive or pertinent negative responses have been documented in the HPI. ROS Other: All systems not noted in ROS Statement are negative. Past Medical History Past Medical History: Diabetes Mellitus, GERD/Reflux, Hyperlipidemia, Hypertension, Syncope Additional Past Medical History / Comment(s): Pt recently admitted to [facility] on 07/21/21 with uncontrolled IDDM and hyperkalemia. Other hx: Recurrent pancreatitis, hypertriglyceridemia, elevated lipase, IDDM type II, UTI, chronic low back pain, bulging discs, dental abscesses in past. History of Any Multi-Drug Resistant Organisms: MRSA Date of last positivie culture/infection: 03/01/23 MDRO Source:: Abdomen Past Surgical History: Tubal Ligation Additional Past Surgical History / Comment(s): Age 7 had VSD repair, tumor removal 03/2023 Past Anesthesia/Blood Transfusion Reactions: No Reported Reaction Past Psychological History: No Psychological Hx Reported Smoking Status: Former smoker, Second hand smoke exposure, Vaper Past Alcohol Use History: None Reported Past Drug Use History: None Reported - Past Family History Mother Family Medical History: No Reported History Additional Family Medical History / Comment(s): Mother was healthy. She is , pt cannot recall cause of . Father Family Medical History: Pneumonia Additional Family Medical History / Comment(s): Father at the age of 67yrs from pneumonia General Exam Limitations: no limitations General appearance: alert, in no apparent distress Head exam: Present: atraumatic, normocephalic, normal inspection Respiratory exam: Present: normal lung sounds bilaterally. Absent: respiratory distress, wheezes, rales, rhonchi, stridor Cardiovascular Exam: Present: regular rate, normal rhythm, normal heart sounds. Absent: systolic murmur, diastolic murmur, rubs, gallop, clicks Neurological exam: Present: alert, oriented X3, CN II-XII intact Psychiatric exam: Present: normal affect, normal mood Skin exam: Present: warm, dry, intact, normal color. Absent: rash Course Vital Signs 06/18/23 06/18/23 06/18/23 06:04 06:30 07:48 Temperature 98.4 F 98.1 F Pulse Rate 70 72 Respiratory 20 20 18 Rate Blood Pressure 164/95 150/76 O2 Sat by Pulse 96 97 Oximetry Medical Decision Making - Medical Decision Making This is a 52 year old female who presents to the emergency department for coughing and congestion. Was pt. sent in by a medical professional or institution? @ -No Did you speak to anyone other than the patient for history? @ -No Did you review nursing and triage notes? @ -Yes, and I agree, it is accurate with regards to the patient's symptoms. Were old charts reviewed? @ -Chest x-ray from 06/14/23 demonstrating no acute process. Differential Diagnosis? @ -Differential Cough: Influenza, Covid, RSV, croup, allergic rhinitis, GERD, pneumonia, bronchitis, COPD, viral pharyngitis, streptococcal pharyngitis, this is not meant to be an all-inclusive list. EKG interpreted by me (3pts min.)? @ -Not obtained X-rays interpreted by me (1pt min.)? @ -Chest x-ray obtained, my interpretation identifies a density to the right upper lung. CT interpreted by me (1pt min.)? @ -Not obtained U/S interpreted by me (1pt. min.)? @ -Not obtained What testing was considered but not performed? (CT, X-rays, U/S, labs)? Why? @ -None What meds were considered but not given? Why? @ -None Did you discuss the management of the patient with other professionals? @ -No Did you reconcile home meds? @ -No Was smoking cessation discussed for >3mins.? @ -I discussed smoking cessation for greater than 3 minutes. The risk of smoking were discussed with the patient including but not limited to risks of cancer, stroke, coronary artery disease and COPD. Also discussed with patient were multiple methods of quitting smoking. Lastly we discussed the financial cost of smoking. Was critical care preformed (if so, how long)? @ -No Were there social determinants of health that impacted care today? How? (Homelessness, low income, unemployed, alcoholism, drug addiction, transportation, low edu. Level, literacy, decrease access to med. care, half-way, rehab)? @ -No Was there de-escalation of care discussed even if they declined? (Discuss DNR or withdrawal of care, Hospice)? @ -No What co-morbidities impacted this encounter? (DM, HTN, Smoking, COPD, CAD, Cancer, CVA, Hep., AIDS, mental health diagnosis, sleep apnea, morbid obesity)? @ -Smoking, GERD Was patient admitted / discharged? @ -Discharged. COVID, influenza, and RSV testing negative. Chest x-ray demonstrates a nodular density at the right apex that could be a superimposition shadow. They also advised correlation for pulmonary nodule or atypical infection. This was not present on the chest x-ray she had on 06/13. Given the new finding with the duration of the patient's symptoms, we will start her on antibiotic therapy. She was given Tessalon Perles and Toradol in the emergency department, which she felt was beneficial. Prescription for Augmentin and Tessalon Perles provided with dosing instructions reviewed. Advised follow-up with her primary care provider, and discussed that she will also likely need a repeat chest x-ray. Patient discharged home in stable condition. Undiagnosed new problem with uncertain prognosis? @ -None Drug Therapy requiring intensive monitoring for toxicity (Heparin, Nitro, Insulin, Cardizem)? @ -None Were any procedures done? @ -None Diagnosis/symptom? @ -Pneumonia Acute, or Chronic, or Acute on Chronic? @ -Acute Uncomplicated (without systemic symptoms) or Complicated (systemic symptoms)? @ -Uncomplicated Side effects of treatment? @ -None Exacerbation, Progression, or Severe Exacerbation] @ -Not applicable Poses a threat to life or bodily function? @ -No Return precautions reviewed in depth, the patient is instructed to return to the emergency department with any new, worsening, or concerning symptoms. Patient verbalized understanding. This case was discussed in detail with the attending ED physician, Dr. Patrick. Presentation, findings, and treatment plan discussed in detail as well. - Lab Data Lab Results 06/18/23 Range/Units 06:27 Influenza Type A (PCR) Not Detected (Not Detectd) Influenza Type B (PCR) Not Detected (Not Detectd) RSV (PCR) Not Detected (Not Detectd) SARS-CoV-2 (PCR) Not Detected (Not Detectd) - Radiology Data Radiology results: report reviewed, image reviewed Disposition Clinical Impression: Nicotine dependence, Pneumonia Disposition: HOME SELF-CARE Instructions (If sedation given, give patient instructions): Pneumonia (ED) Additional Instructions: Return to the emergency department with any new, worsening, or concerning symptoms. Take the antibiotic as prescribed for 7 days. You can have the cough medication every 8 hours as needed. Follow up with your primary care provider in 1-2 days. Prescriptions: Amoxic-Pot Clav 875-125Mg [Augmentin 875-125] 1 tab PO Q12HR 7 Days #14 tab Benzonatate [Tessalon Perle] 200 mg PO TID PRN #20 capsule PRN Reason: Cough Is patient prescribed a controlled substance at d/c from ED?: No Referrals: Guillermo Cerda MD [Primary Care Provider] - 1-2 days Time of Disposition: 07:37
[2023-06-18] MEDS: BENZONATATE 100 MG CAP PO STA (06:24)
[2023-06-18] MEDS: KETOROLAC 15 MG/ML 1 ML VIAL IM STA (06:27)
--- NOTE | 2023-06-18 07:20 | XR ---
EXAMINATION TYPE: XR chest 2V DATE OF EXAM: 06/18/2023 COMPARISON: 06/14/2023 HISTORY: 52-year-old female with cough TECHNIQUE: PA and lateral views FINDINGS: Median sternotomy wires are present. Cardiomediastinal silhouette, aorta, and pulmonary vasculature a re within normal limits. Small nodular density measuring 1.3 cm at the right apex. Possible superimpo sition shadow. Follow-up CT chest to exclude a suspicious pulmonary nodule or atypical infections. Gwen ngs and pleural spaces are otherwise clear. IMPRESSION: A 1.3 cm nodular density at the right apex could be summation or external artifact. Clinically correl ate. Follow-up CT chest can exclude a suspicious developing pulmonary nodule or changes relating to a n atypical infection. Otherwise, no acute cardiopulmonary process.
[2023-06-18] MEDS: AMOXIC-POT CLAV 875-125MG 1 EACH TAB PO STA (07:43)
[2023-06-18] MEDS: DEXAMETHASONE SOD PHOSPHATE 10 MG/ML 1 ML VIAL IM STA (07:44)
[2023-06-18 08:09] VITALS: BP 150/76; PULSE 72; RESP 18; TEMP 98.1
== END 2023-06-18 07:51 | disposition home or self-care (01) ==
LOC: SUPCPDRO 06:00 → EC 06:00
DX: J18.9 Pneumonia, unspecified organism (principal); F17.290 Nicotine dependence, other tobacco product, uncomplicated; E11.9 Type 2 diabetes mellitus without complications; I10 Essential (primary) hypertension; E78.5 Hyperlipidemia, unspecified; K21.9 Gastro-esophageal reflux disease without esophagitis; Z79.4 Long term (current) use of insulin; Z79.899 Other long term (current) drug therapy; Z88.1 Allergy status to other antibiotic agents; Z20.822 Contact with and (suspected) exposure to COVID-19
CPT/HCPCS: 87636; 71046; 99285; 96372 ×2; J1100; J1885

== ENCOUNTER 2023-06-21 04:33 | Emergency (ER) | payer MEDICARE, OTHER ==
[2023-06-21 05:07] VITALS: RESP 18
--- NOTE | 2023-06-21 05:09 | ED ---
Chest Pain HPI - General Chief Complaint: Chest Pain Stated Complaint: CHEST PAIN Time Seen by Provider: 06/21/23 04:52 Source: patient, EMS, RN notes reviewed, old records reviewed Mode of arrival: EMS Limitations: no limitations - History of Present Illness Initial Comments: This is a 52-year-old female to the ER for evaluation patient critical access hospital for ev aluation regards to abdominal pain with nausea. No travel history or sick contacts no fever cough or congestion. No new complaints MD Complaint: chest pain, other (Abdominal pain) -: hour(s) Onset: during rest, during exertion Pain Location: substernal Pain Radiation: none Severity: mild Severity scale (1-10): 1 Quality: aching Consistency: constant, intermittent Improves With: nothing Worsens With: nothing Anginal Symptoms: dyspnea Other Symptoms: palpitations Treatments Prior to Arrival: none - Related Data Home Medications Medication Instructions Recorded Confirmed Atorvastatin [Lipitor] 80 mg PO HS 06/25/19 04/14/23 lisinopriL 40 mg PO DAILY 09/24/20 04/14/23 traZODone HCL 50 mg PO HS PRN 01/11/21 04/14/23 Ergocalciferol (Vitamin D2) 1,250 mcg PO TU 03/03/21 04/14/23 [Drisdol (50,000 Iu)] Esomeprazole Magnesium [NexIUM] 20 mg PO DAILY 01/30/22 04/14/23 INSULIN ASPART (NovoLOG) [NovoLOG 20 unit SQ AC-TID 11/26/22 04/14/23 (formulary)] Albuterol Inhaler [Ventolin Hfa 2 puff INHALATION RT-QID 03/01/23 04/14/23 Inhaler] Previous Rx's Medication Instructions Recorded amLODIPine [Norvasc] 10 mg PO DAILY #30 tab 03/11/23 hydrALAZINE HCL [Apresoline] 25 mg PO BID #60 tab 03/11/23 Doxycycline Hyclate 100 mg PO BID 10 Days #20 tab 04/19/23 cefUROXime axetiL [Ceftin] 500 mg PO BID 10 Days #20 tab 04/19/23 Insulin Detemir (Levemir) [Levemir] 130 unit SQ DAILY@0700 #60 each 04/21/23 Acetaminophen Tab [Tylenol] 650 mg PO Q6H #30 tab 05/15/23 Ibuprofen [Motrin] 600 mg PO Q8HR PRN #30 tab 05/15/23 Amoxic-Pot Clav 875-125Mg 1 tab PO Q12HR 7 Days #14 tab 06/18/23 [Augmentin 875-125] Benzonatate [Tessalon Perle] 200 mg PO TID PRN #20 capsule 06/18/23 Allergies Allergy/AdvReac Type Severity Reaction Status Date / Time levofloxacin [From Levaquin] Allergy Rash/Hives Verified 06/21/23 04:47 Review of Systems ROS Statement: Those systems with pertinent positive or pertinent negative responses have been documented in the HPI. ROS Other: All systems not noted in ROS Statement are negative. EKG Findings - EKG Comments: EKG Findings:: EKG is sinus 67 OH 138 QRS 84 QTc 400 - EKG Results: EKG: interpreted by PEYTON Past Medical History Past Medical History: Diabetes Mellitus, GERD/Reflux, Hyperlipidemia, Hypertension, Syncope Additional Past Medical History / Comment(s): Pt recently admitted to [facility] on 07/21/21 with uncontrolled IDDM and hyperkalemia. Other hx: Recurrent pancreatitis, hypertriglyceridemia, elevated lipase, IDDM type II, UTI, chronic low back pain, bulging discs, dental abscesses in past. History of Any Multi-Drug Resistant Organisms: MRSA Date of last positivie culture/infection: 03/01/23 MDRO Source:: Abdomen Past Surgical History: Tubal Ligation Additional Past Surgical History / Comment(s): Age 7 had VSD repair, tumor removal 03/2023 Past Anesthesia/Blood Transfusion Reactions: No Reported Reaction Past Psychological History: No Psychological Hx Reported Smoking Status: Former smoker, Second hand smoke exposure, Vaper Past Alcohol Use History: None Reported Past Drug Use History: None Reported - Past Family History Mother Family Medical History: No Reported History Additional Family Medical History / Comment(s): Mother was healthy. She is , pt cannot recall cause of . Father Family Medical History: Pneumonia Additional Family Medical History / Comment(s): Father at the age of 67yrs from pneumonia General Exam Limitations: no limitations General appearance: alert, in no apparent distress Head exam: Present: atraumatic, normocephalic, normal inspection Eye exam: Present: normal appearance, PERRL, EOMI. Absent: scleral icterus, conjunctival injection, periorbital swelling ENT exam: Present: normal exam, mucous membranes moist Neck exam: Present: normal inspection. Absent: tenderness, meningismus, lymphadenopathy Respiratory exam: Present: normal lung sounds bilaterally. Absent: respiratory distress, wheezes, rales, rhonchi, stridor Cardiovascular Exam: Present: regular rate, normal rhythm, normal heart sounds. Absent: systolic murmur, diastolic murmur, rubs, gallop, clicks GI/Abdominal exam: Present: soft, normal bowel sounds. Absent: distended, tenderness, guarding, rebound, rigid Extremities exam: Present: normal inspection, full ROM, normal capillary refill. Absent: tenderness, pedal edema, joint swelling, calf tenderness Back exam: Present: normal inspection Neurological exam: Present: alert, oriented X3, CN II-XII intact Psychiatric exam: Present: normal affect, normal mood Skin exam: Present: warm, dry, intact, normal color. Absent: rash Course Vital Signs 06/21/23 06/21/23 06/21/23 04:42 04:47 06:20 Temperature 98 F 98.7 F Pulse Rate 67 70 Respiratory 18 18 18 Rate Blood Pressure 157/75 145/68 O2 Sat by Pulse 97 97 Oximetry - Reevaluation(s) Reevaluation #1: Medical record is reviewed Reevaluation #2: Patient symptoms are improved Reevaluation #3: Patient informed of results and questions answered Reevaluation #4: Was pt. sent in by a medical professional or institution (, PA, STATION OPERATOR, urgent care, hospital, or fdc...) When possible be specific @ -no Did you speak to anyone other than the patient for history (EMS, parent, family, police, friend...)? What history was obtained from this source @ -no Did you review nursing and triage notes (agree or disagree)? Why? @ -agree Are old charts reviewed (outside hosp., previous admission, EMS record, old EKG, old radiological studies, urgent care reports/EKG's, fdc records)? Report findings @ -yes Differential Diagnosis (chest pain, altered mental status, abdominal pain women, abdominal pain men, vaginal bleeding, weakness, fever, dyspnea, syncope, headache, dizziness, GI bleed, back pain, seizure, CVA, palpatations, mental health, musculoskeletal)? @ -prior EKG interpreted by me (3pts min.). @ -yes X-rays interpreted by me (1pt min.). @ -no CT interpreted by me (1pt min.). @ -no U/S interpreted by me (1pt. min.). @ -no What testing was considered but not performed or refused? (CT, X-rays, U/S, labs)? Why? @ -none What meds were considered but not given or refused? Why? @ -none Did you discuss the management of the patient with other professionals (professionals i.e. DrShayan, PA, STATION OPERATOR, lab, RT, psych nurse, geriatric social worker, modeling manager, teacher, chief revenue officer, supportive employment case manager)? Give summary @ -no Was smoking cessation discussed for >3mins.? @ -no Was critical care preformed (if so, how long)? @ -no Were there social determinants of health that impacted care today? How? (Homelessness, low income, unemployed, alcoholism, drug addiction, transportation, low edu. Level, literacy, decrease access to med. care, usp, rehab)? @ -none Was there de-escalation of care discussed even if they declined (Discuss DNR or withdrawal of care, Hospice)? DNR status @ -no What co-morbidities impacted this encounter? (DM, HTN, Smoking, COPD, CAD, Cancer, CVA, ARF, Chemo, Hep., AIDS, mental health diagnosis, sleep apnea, morbid obesity)? @ -none Was patient admitted / discharged? Hospital course, mention meds given and route, prescriptions, significant lab abnormalities, going to OR and other pertinent info. @ - 52 Female with nonspecific chest pain well-known to this emergency department for evaluations in regards to chest pain abdominal pain noncompliance with medication. Patient has no acute findings and can be discharged home Discharge Undiagnosed new problem with uncertain prognosis? @ -no Drug Therapy requiring intensive monitoring for toxicity (Heparin, Nitro, Insulin, Cardizem)? @ -no Were any procedures done? @ -no Diagnosis/symptom? @ -Chest pain Acute, or Chronic, or Acute on Chronic? @ -Acute Uncomplicated (without systemic symptoms) or Complicated (systemic symptoms)? @ -Complicated Side effects of treatment? @ -no Exacerbation, Progression, or Severe Exacerbation? @ -exacerbation Poses a threat to life or bodily function? How? (Chest pain, [place], [place], pneumonia, PE, COPD, DKA, ARF, appy, cholecystitis, CVA, Diverticulitis, Homicidal, Suicidal, threat to staff... and all critical care pts) @ -yes with chest pain Reevaluation #5: Differential Chest Pain: Stable Angina, Unstable Angina, STEMI, NSTEMI Aortic Dissection, Pneumothorax, Musculoskeletal, Esophageal Spasm GERD, Cholecystitis, Pancreatitis, Zoster, this is not meant to be an all-inclusive list. Chest Pain MDM - MDM 52 Female with nonspecific chest pain well-known to this emergency department for evaluations in regards to chest pain abdominal pain noncompliance with medication. Patient has no acute findings and can be discharged home Disposition Clinical Impression: Chest pain Disposition: HOME SELF-CARE Condition: Good Instructions (If sedation given, give patient instructions): Chest Pain (ED) Is patient prescribed a controlled substance at d/c from ED?: No Referrals: Guillermo Cerda MD [Primary Care Provider] - 1-2 days Time of Disposition: 06:20
[2023-06-21 06:46] VITALS: BP 145/68; PULSE 70; TEMP 98.7
== END 2023-06-21 06:32 | disposition home or self-care (01) ==
LOC: EC 04:33
DX: R07.9 Chest pain, unspecified (principal); F17.290 Nicotine dependence, other tobacco product, uncomplicated; Z88.8 Allergy status to other drugs, medicaments and biological substances
CPT/HCPCS: 99285

== ENCOUNTER 2023-07-07 20:17 | Emergency (ER) | payer MEDICARE, OTHER ==
[2023-07-07 21:04] LABS: Anisocytosis Slight; Basophils # (A) 0.1 k/uL (0-0.2); Basophils % (A) 1 %; Eosinophils # (A) 0.3 k/uL (0-0.7); Eosinophils % (A) 3 %; HCT 41.5 % (34.0-46.0); HGB 13.6 gm/dL (11.4-16.0); Lymphocytes # (A) 2.9 k/uL (1.0-4.8); Lymphocytes % (A) 30 %; MCH 27.4 pg (25.0-35.0); MCHC 32.8 g/dL (31.0-37.0); MCV 83.3 fL (80.0-100.0); Mean Platelet Volume 7.4; Monocytes # (A) 0.4 k/uL (0-1.0); Monocytes % (A) 4 %; Neutrophils # (A) 5.8 k/uL (1.3-7.7); Neutrophils % (A) 60 %; Platelet Count 470 k/uL (150-450); RBC 4.98 m/uL (3.80-5.40); RDW 16.5 % (11.5-15.5); WBC 9.8 k/uL (3.8-10.6)
[2023-07-07 21:07] LABS: Appearance,Urine Clear (Clear); Bilirubin,Urine Negative (Negative); Blood,Urine Negative (Negative); Color,Urine Colorless; Glucose,Urine (UA) 4+ (Negative); Ketones,Urine Negative (Negative); Leukocyte Esterase,Urine Negative (Negative); Nitrite,Urine Negative (Negative); Protein,Urine 2+ (Negative); RBC,Urine 1 /hpf (0-5); Specific Gravity,Urine 1.028 (1.001-1.035); Squamous Epithelial Cell,Urine 5 /hpf (0-4); Urobilinogen,Urine <2.0 mg/dL (<2.0); WBC,Urine 1 /hpf (0-5)
[2023-07-07 21:08] VITALS: TEMP 98.7
--- NOTE | 2023-07-07 21:26 | ED ---
General Adult HPI - General Chief complaint: Nausea/Vomiting/Diarrhea Stated complaint: Nausea, Congestion, Body Aches Time Seen by Provider: 07/07/23 20:25 Source: patient, EMS Mode of arrival: EMS Limitations: no limitations - History of Present Illness Initial comments: 61-year-old female well-known to the ED presenting to the ED with complaints of cough. Patient states over the last 2 days has had cough productive with sputum. Reports that every time she coughs, feels pain on the right side of her chest. Otherwise if she is not coughing has no complaints of chest pain. Patient also notes that she has had a burning sensation when she has been urinating over the last 2 days. Denies hematuria. Denies fever or chills. When I asked the patient about nausea or vomiting she denied this as well as denied diarrhea however reportedly in triage patient noted some nausea. No other complaints at this time - Related Data Home Medications Medication Instructions Recorded Confirmed Atorvastatin [Lipitor] 80 mg PO HS 06/25/19 04/14/23 lisinopriL 40 mg PO DAILY 09/24/20 04/14/23 traZODone HCL 50 mg PO HS PRN 01/11/21 04/14/23 Ergocalciferol (Vitamin D2) 1,250 mcg PO TU 03/03/21 04/14/23 [Drisdol (50,000 Iu)] Esomeprazole Magnesium [NexIUM] 20 mg PO DAILY 01/30/22 04/14/23 INSULIN ASPART (NovoLOG) [NovoLOG 20 unit SQ AC-TID 11/26/22 04/14/23 (formulary)] Albuterol Inhaler [Ventolin Hfa 2 puff INHALATION RT-QID 03/01/23 04/14/23 Inhaler] Previous Rx's Medication Instructions Recorded amLODIPine [Norvasc] 10 mg PO DAILY #30 tab 03/11/23 hydrALAZINE HCL [Apresoline] 25 mg PO BID #60 tab 03/11/23 Doxycycline Hyclate 100 mg PO BID 10 Days #20 tab 04/19/23 cefUROXime axetiL [Ceftin] 500 mg PO BID 10 Days #20 tab 04/19/23 Insulin Detemir (Levemir) [Levemir] 130 unit SQ DAILY@0700 #60 each 04/21/23 Acetaminophen Tab [Tylenol] 650 mg PO Q6H #30 tab 05/15/23 Ibuprofen [Motrin] 600 mg PO Q8HR PRN #30 tab 05/15/23 Amoxic-Pot Clav 875-125Mg 1 tab PO Q12HR 7 Days #14 tab 06/18/23 [Augmentin 875-125] Benzonatate [Tessalon Perle] 200 mg PO TID PRN #20 capsule 06/18/23 Allergies Allergy/AdvReac Type Severity Reaction Status Date / Time levofloxacin [From Levaquin] Allergy Rash/Hives Verified 06/21/23 04:47 Review of Systems ROS Statement: Those systems with pertinent positive or pertinent negative responses have been documented in the HPI. ROS Other: All systems not noted in ROS Statement are negative. Past Medical History Past Medical History: Diabetes Mellitus, GERD/Reflux, Hyperlipidemia, Hypertension, Syncope Additional Past Medical History / Comment(s): Pt recently admitted to [facility] on 07/21/21 with uncontrolled IDDM and hyperkalemia. Other hx: Recurrent pancreatitis, hypertriglyceridemia, elevated lipase, IDDM type II, UTI, chronic low back pain, bulging discs, dental abscesses in past. History of Any Multi-Drug Resistant Organisms: MRSA Date of last positivie culture/infection: 03/01/23 MDRO Source:: Abdomen Past Surgical History: Tubal Ligation Additional Past Surgical History / Comment(s): Age 7 had VSD repair, tumor removal 03/2023 Past Anesthesia/Blood Transfusion Reactions: No Reported Reaction Past Psychological History: No Psychological Hx Reported Smoking Status: Former smoker, Second hand smoke exposure, Vaper Past Alcohol Use History: None Reported Past Drug Use History: None Reported - Past Family History Mother Family Medical History: No Reported History Additional Family Medical History / Comment(s): Mother was healthy. She is , pt cannot recall cause of . Father Family Medical History: Pneumonia Additional Family Medical History / Comment(s): Father at the age of 67yrs from pneumonia General Exam Limitations: no limitations General appearance: alert, in no apparent distress Eye exam: Present: normal appearance Neck exam: Present: normal inspection Respiratory exam: Present: normal lung sounds bilaterally, other (Reproducible right chest wall tenderness to palpation.) Cardiovascular Exam: Present: regular rate GI/Abdominal exam: Present: soft (No significant abdominal tenderness to palpation. No rebound guarding or rigidity.), normal bowel sounds Neurological exam: Present: alert Skin exam: Present: warm, dry Course Vital Signs 07/07/23 07/08/23 20:28 00:05 Temperature 98.7 F Pulse Rate 72 61 Respiratory 18 16 Rate Blood Pressure 149/50 154/95 O2 Sat by Pulse 96 97 Oximetry Medical Decision Making - Medical Decision Making Was pt. sent in by a medical professional or institution (, [facility], [employer], urgent care, hospital, or [facility]...) When possible be specific @ -No Did you speak to anyone other than the patient for history (EMS, parent, family, police, friend...)? What history was obtained from this source @ -No Did you review nursing and triage notes (agree or disagree)? Why? @ -I reviewed and agree with nursing and triage notes Were old charts reviewed (outside hosp., previous admission, EMS record, old EKG, old radiological studies, urgent care reports/EKG's, [facility] records)? Report findings @ -No old charts were reviewed Differential Diagnosis (chest pain, altered mental status, abdominal pain women, abdominal pain men, vaginal bleeding, weakness, fever, dyspnea, syncope, headache, dizziness, GI bleed, back pain, seizure, CVA, palpatations, mental health, musculoskeletal)? @ -Differential Abdominal Pain Women: Appendicitis, Cholecystitis, diverticulosis, ischemic bowel, pancreatitis, hepatitis, UTI, gastroenteritis, AAA, incarcerated hernia, bowel obstruction, constipation, inflammatory bowel, hepatitis, peptic ulcer disease, splenic infarction, perforated viscus, vulvitis, ovarian torsion, PID, kidney stone, placenta abruption, this is not meant to be an all-inclusive list EKG interpreted by me (3pts min.). @ -As above X-rays interpreted by me (1pt min.). @ -X-ray interpreted me which revealed no evidence of acute finding. CT interpreted by me (1pt min.). @ -None done U/S interpreted by me (1pt. min.). @ -None done What testing was considered but not performed or refused? (CT, X-rays, U/S, labs)? Why? @ -None What meds were considered but not given or refused? Why? @ -None Did you discuss the management of the patient with other professionals (professionals i.e. Dr., PA, [employer], lab, RT, psych nurse, social director, law office manager, teacher, airframe technical officer, home health care case manager)? Give summary @ -No Was smoking cessation discussed for >3mins.? @ -No Was critical care preformed (if so, how long)? @ -No Were there social determinants of health that impacted care today? How? (Homelessness, low income, unemployed, alcoholism, drug addiction, transportation, low edu. Level, literacy, decrease access to med. care, [place] [facility], rehab)? @ -No Was there de-escalation of care discussed even if they declined (Discuss DNR or withdrawal of care, Hospice)? DNR status @ -No What co-morbidities impacted this encounter? (DM, HTN, Smoking, COPD, CAD, Cancer, CVA, ARF, Chemo, Hep., AIDS, mental health diagnosis, sleep apnea, morbid obesity)? @ -None Was patient admitted / discharged? Hospital course, mention meds given and route, prescriptions, significant lab abnormalities, going to OR and other pertinent info. @ -Discharge 52-year-old female presenting to the ED with complaints of cough and right-sided chest pain when she coughs. Also noted some nausea. On examination reproducible right chest wall tenderness to palpation. Chest x-ray revealed no abnormalities. Laboratory studies reviewed. CBC CMP largely unremarkable except for an elevated blood sugar however this appears to be a chronic issue. Troponin undetectable. Acetone negative. UA shows no evidence of infection. Troponin undetectable. Patient provided analgesia, antiemetics and IV fluids here in the ED and also insulin and reports feeling improved. Discharged home in stable condition. Undiagnosed new problem with uncertain prognosis? @ -No Drug Therapy requiring intensive monitoring for toxicity (Heparin, Nitro, Insulin, Cardizem)? @ -No Were any procedures done? @ -No Diagnosis/symptom? @ -Cough, nausea Acute, or Chronic, or Acute on Chronic? @ -Acute Uncomplicated (without systemic symptoms) or Complicated (systemic symptoms)? @ -Uncomplicated Side effects of treatment? @ -No Exacerbation, Progression, or Severe Exacerbation? @ -No Poses a threat to life or bodily function? How? (Chest pain, [place], [place], pneumonia, PE, COPD, DKA, ARF, appy, cholecystitis, CVA, Diverticulitis, Homicidal, Suicidal, threat to staff... and all critical care pts) @ -No - Lab Data Result diagrams: 07/07/23 20:58 07/07/23 20:58 Lab Results 07/07/23 07/07/23 07/07/23 Range/Units 20:58 20:58 20:58 WBC 9.8 (3.8-10.6) k/uL RBC 4.98 (3.80-5.40) m/uL Hgb 13.6 (11.4-16.0) gm/dL Hct 41.5 (34.0-46.0) % MCV 83.3 (80.0-100.0) fL MCH 27.4 (25.0-35.0) pg MCHC 32.8 (31.0-37.0) g/dL RDW 16.5 H (11.5-15.5) % Plt Count 470 H (150-450) k/uL MPV 7.4 Neutrophils % 60 % Lymphocytes % 30 % Monocytes % 4 % Eosinophils % 3 % Basophils % 1 % Neutrophils # 5.8 (1.3-7.7) k/uL Lymphocytes # 2.9 (1.0-4.8) k/uL Monocytes # 0.4 (0-1.0) k/uL Eosinophils # 0.3 (0-0.7) k/uL Basophils # 0.1 (0-0.2) k/uL Anisocytosis Slight PT (10.0-12.5) sec INR (<1.2) APTT (22.0-30.0) sec Sodium 132 L (137-145) mmol/L Potassium 4.5 (3.5-5.1) mmol/L Chloride 99 (98-107) mmol/L Carbon Dioxide 21 L (22-30) mmol/L Anion Gap 12 mmol/L BUN 15 (7-17) mg/dL Creatinine 0.55 (0.52-1.04) mg/dL Est GFR (CKD-EPI)AfAm >90 (>60 ml/min/1.73 sqM) Est GFR (CKD-EPI)NonAf >90 (>60 ml/min/1.73 sqM) Glucose 427 H (74-99) mg/dL POC Glucose (mg/dL) (70-110) mg/dL POC Glu Sugar Coating Hand ID Calcium 9.0 (8.4-10.2) mg/dL Magnesium (1.6-2.3) mg/dL Total Bilirubin 0.5 (0.2-1.3) mg/dL AST 27 (14-36) U/L ALT 21 (4-34) U/L Alkaline Phosphatase 134 H (38-126) U/L Troponin I (0.000-0.034) ng/mL Total Protein 6.8 (6.3-8.2) g/dL Albumin 3.7 (3.5-5.0) g/dL Amylase 54 (30-110) U/L Lipase 429 H (23-300) U/L Urine Color Colorless Urine Appearance Clear (Clear) Urine pH 6.0 (5.0-8.0) Ur Specific [place] 1.028 (1.001-1.035) Urine Protein 2+ H (Negative) Urine Glucose (UA) 4+ H (Negative) Urine Ketones Negative (Negative) Urine Blood Negative (Negative) Urine Nitrite Negative (Negative) Urine Bilirubin Negative (Negative) Urine Urobilinogen <2.0 (<2.0) mg/dL Ur Leukocyte Esterase Negative (Negative) Urine RBC 1 (0-5) /hpf Urine WBC 1 (0-5) /hpf Ur Squamous Epith Cells 5 H (0-4) /hpf Acetone, Qual (Negative) Influenza Type A (PCR) (Not Detectd) Influenza Type B (PCR) (Not Detectd) RSV (PCR) (Not Detectd) SARS-CoV-2 (PCR) (Not Detectd) 07/07/23 07/07/23 07/07/23 Range/Units 20:58 22:36 22:36 WBC (3.8-10.6) k/uL RBC (3.80-5.40) m/uL Hgb (11.4-16.0) gm/dL Hct (34.0-46.0) % MCV (80.0-100.0) fL MCH (25.0-35.0) pg MCHC (31.0-37.0) g/dL RDW (11.5-15.5) % Plt Count (150-450) k/uL MPV Neutrophils % % Lymphocytes % % Monocytes % % Eosinophils % % Basophils % % Neutrophils # (1.3-7.7) k/uL Lymphocytes # (1.0-4.8) k/uL Monocytes # (0-1.0) k/uL Eosinophils # (0-0.7) k/uL Basophils # (0-0.2) k/uL Anisocytosis PT 9.8 L (10.0-12.5) sec INR 0.9 (<1.2) APTT 21.8 L (22.0-30.0) sec Sodium (137-145) mmol/L Potassium (3.5-5.1) mmol/L Chloride (98-107) mmol/L Carbon Dioxide (22-30) mmol/L Anion Gap mmol/L BUN (7-17) mg/dL Creatinine (0.52-1.04) mg/dL Est GFR (CKD-EPI)AfAm (>60 ml/min/1.73 sqM) Est GFR (CKD-EPI)NonAf (>60 ml/min/1.73 sqM) Glucose (74-99) mg/dL POC Glucose (mg/dL) (70-110) mg/dL POC Glu Sugar Coating Hand ID Calcium (8.4-10.2) mg/dL Magnesium (1.6-2.3) mg/dL Total Bilirubin (0.2-1.3) mg/dL AST (14-36) U/L ALT (4-34) U/L Alkaline Phosphatase (38-126) U/L Troponin I (0.000-0.034) ng/mL Total Protein (6.3-8.2) g/dL Albumin (3.5-5.0) g/dL Amylase (30-110) U/L Lipase (23-300) U/L Urine Color Urine Appearance (Clear) Urine pH (5.0-8.0) Ur Specific [place] (1.001-1.035) Urine Protein (Negative) Urine Glucose (UA) (Negative) Urine Ketones (Negative) Urine Blood (Negative) Urine Nitrite (Negative) Urine Bilirubin (Negative) Urine Urobilinogen (<2.0) mg/dL Ur Leukocyte Esterase (Negative) Urine RBC (0-5) /hpf Urine WBC (0-5) /hpf Ur Squamous Epith Cells (0-4) /hpf Acetone, Qual Negative (Negative) Influenza Type A (PCR) Not Detected (Not Detectd) Influenza Type B (PCR) Not Detected (Not Detectd) RSV (PCR) Not Detected (Not Detectd) SARS-CoV-2 (PCR) Not Detected (Not Detectd) 07/07/23 07/07/23 07/08/23 Range/Units 22:36 22:36 00:39 WBC (3.8-10.6) k/uL RBC (3.80-5.40) m/uL Hgb (11.4-16.0) gm/dL Hct (34.0-46.0) % MCV (80.0-100.0) fL MCH (25.0-35.0) pg MCHC (31.0-37.0) g/dL RDW (11.5-15.5) % Plt Count (150-450) k/uL MPV Neutrophils % % Lymphocytes % % Monocytes % % Eosinophils % % Basophils % % Neutrophils # (1.3-7.7) k/uL Lymphocytes # (1.0-4.8) k/uL Monocytes # (0-1.0) k/uL Eosinophils # (0-0.7) k/uL Basophils # (0-0.2) k/uL Anisocytosis PT (10.0-12.5) sec INR (<1.2) APTT (22.0-30.0) sec Sodium (137-145) mmol/L Potassium (3.5-5.1) mmol/L Chloride (98-107) mmol/L Carbon Dioxide (22-30) mmol/L Anion Gap mmol/L BUN (7-17) mg/dL Creatinine (0.52-1.04) mg/dL Est GFR (CKD-EPI)AfAm (>60 ml/min/1.73 sqM) Est GFR (CKD-EPI)NonAf (>60 ml/min/1.73 sqM) Glucose (74-99) mg/dL POC Glucose (mg/dL) 332 H (70-110) mg/dL POC Glu Sugar Coating Hand ID Bateman, Mary Calcium (8.4-10.2) mg/dL Magnesium 1.4 L (1.6-2.3) mg/dL Total Bilirubin (0.2-1.3) mg/dL AST (14-36) U/L ALT (4-34) U/L Alkaline Phosphatase (38-126) U/L Troponin I <0.012 (0.000-0.034) ng/mL Total Protein (6.3-8.2) g/dL Albumin (3.5-5.0) g/dL Amylase (30-110) U/L Lipase (23-300) U/L Urine Color Urine Appearance (Clear) Urine pH (5.0-8.0) Ur Specific [place] (1.001-1.035) Urine Protein (Negative) Urine Glucose (UA) (Negative) Urine Ketones (Negative) Urine Blood (Negative) Urine Nitrite (Negative) Urine Bilirubin (Negative) Urine Urobilinogen (<2.0) mg/dL Ur Leukocyte Esterase (Negative) Urine RBC (0-5) /hpf Urine WBC (0-5) /hpf Ur Squamous Epith Cells (0-4) /hpf Acetone, Qual (Negative) Influenza Type A (PCR) (Not Detectd) Influenza Type B (PCR) (Not Detectd) RSV (PCR) (Not Detectd) SARS-CoV-2 (PCR) (Not Detectd) Disposition Clinical Impression: Cough, Nausea Disposition: HOME SELF-CARE Condition: Good Additional Instructions: Discharge instructions. Please follow-up with your primary care provider. Is patient prescribed a controlled substance at d/c from ED?: No Referrals: Guillermo Cerda MD [Primary Care Provider] - 1-2 days Time of Disposition: 00:42
[2023-07-07 22:37] LABS: ALT 21 U/L (4-34); AST 27 U/L (14-36); African American GFR (CKD) >90 (>60 ml/min/1.73 sqM); Albumin 3.7 g/dL (3.5-5.0); Alkaline Phosphatase 134 U/L (38-126); Amylase 54 U/L (30-110); Anion Gap 12 mmol/L; Blood Urea Nitrogen 15 mg/dL (7-17); Carbon Dioxide 21 mmol/L (22-30); Chloride 99 mmol/L (98-107); Glucose 427 mg/dL (74-99); Lipase 429 U/L (23-300); Non-African American GFR(CKD) >90 (>60 ml/min/1.73 sqM); Potassium 4.5 mmol/L (3.5-5.1); Sodium 132 mmol/L (137-145); Total Bilirubin 0.5 mg/dL (0.2-1.3); Total Protein 6.8 g/dL (6.3-8.2)
[2023-07-07] MEDS: SODIUM CHLORIDE 0.9% 1,000 ML IV STA (22:48)
--- NOTE | 2023-07-07 22:52 | XR ---
EXAMINATION TYPE: XR chest 2V DATE OF EXAM: 07/07/2023 COMPARISON: 06/18/2023 INDICATION: Chest pain and nausea TECHNIQUE: Frontal and lateral views of the chest are obtained. FINDINGS: The heart size is normal. The pulmonary vasculature is normal. The lungs are clear. Previous suspected right apical nodule not clearly evident on current exam. IMPRESSION: 1. No acute pulmonary process.
[2023-07-07 23:01] LABS: INR 0.9 (<1.2); Prothrombin Time 9.8 sec (10.0-12.5)
[2023-07-07] MEDS: INSULIN REGULAR 100 UNIT/ML VIAL (IV) IV ONE (23:11)
[2023-07-07] MEDS: ONDANSETRON 4 MG/2 ML VIAL IVP STA (23:13)
[2023-07-07] MEDS: KETOROLAC 15 MG/ML 1 ML VIAL IVP STA (23:14)
[2023-07-07 23:33] LABS: Partial Thromboplastin Time 21.8 sec (22.0-30.0)
[2023-07-07] MEDS: ACETAMINOPHEN TAB 500 MG TAB PO STA (23:57)
[2023-07-08 00:41] LABS: Glucose,Whole Blood 332 mg/dL (70-110)
[2023-07-08 01:19] VITALS: BP 147/84; PULSE 77; RESP 18
== END 2023-07-08 01:13 | disposition home or self-care (01) ==
LOC: EC 20:17
DX: E11.65 Type 2 diabetes mellitus with hyperglycemia (principal); R05.9 Cough, unspecified; R07.89 Other chest pain; I49.40 Unspecified premature depolarization; F17.290 Nicotine dependence, other tobacco product, uncomplicated; Z88.1 Allergy status to other antibiotic agents; Z79.4 Long term (current) use of insulin
CPT/HCPCS: 99285; 96374; 96375; 96361; 36415 ×2; 93005; 80053; 82150; 82009; 83690; 83735; 84484; 85025; 85610; 85730; 81001; 87636; 71046; J2405; J1885

== ENCOUNTER 2023-07-30 13:04 | Inpatient (IN) | payer MEDICARE, OTHER ==
[2023-07-30 13:22] LABS: Glucose,Whole Blood >600 mg/dL (70-110)
[2023-07-30 13:55] LABS: Appearance,Urine Clear (Clear); Bilirubin,Urine Negative (Negative); Blood,Urine Negative (Negative); Color,Urine Colorless; Glucose,Urine (UA) 4+ (Negative); Ketones,Urine Negative (Negative); Leukocyte Esterase,Urine Negative (Negative); Nitrite,Urine Negative (Negative); PH, Urine 5.5 (5.0-8.0); Protein,Urine 1+ (Negative); RBC,Urine <1 /hpf (0-5); Specific Gravity,Urine 1.024 (1.001-1.035); Squamous Epithelial Cell,Urine <1 /hpf (0-4); Urobilinogen,Urine <2.0 mg/dL (<2.0); WBC,Urine <1 /hpf (0-5)
--- NOTE | 2023-07-30 14:00 | ED ---
Nausea/Vomiting/Diarrhea HPI - General Source: patient, RN notes reviewed Mode of arrival: EMS <Breanna Aguilar - Last Filed: 07/30/23 13:58> <Usha Chand - Last Filed: 08/01/23 13:55> - General Chief complaint: Nausea/Vomiting/Diarrhea Stated complaint: Abd pain Time Seen by Provider: 07/30/23 13:20 - History of Present Illness Initial comments: Jacob white is a 52-year-old female who presents emergency department with chief complaint of nausea, vomiting and lower diffuse abdominal pain over the past 4 days. Patient denies known fevers but states that she has felt chilled at home. Patient had episodes of diarrhea over the weekend but had a formed bowel movement today. Says she has been unable to keep liquids down. Denies p revious abdominal surgical history. (Breanna Aguilar) 52-year-old female presents to the emergency department for evaluation of nausea, lower abdominal pain x 4 days. She states that this has been constant. She does admit to diarrhea over the weekend but had a normal bowel movement today. She admits to nausea she does not have any active vomiting in the ED. Patient states that she has full body discomfort/ muscle aches. She notes that she she is a diabetic and recurrent pancreatitis. She states that she has been taking her medications as she is prescribed. Patient states that her blood sugars have been running in the mid 200s at home. (Usha Chand) - Related Data Home Medications Medication Instructions Recorded Confirmed Atorvastatin [Lipitor] 80 mg PO HS 06/25/19 07/30/23 lisinopriL 40 mg PO DAILY 09/24/20 07/30/23 traZODone HCL 50 mg PO HS PRN 01/11/21 07/30/23 Ergocalciferol (Vitamin D2) 1,250 mcg PO TU 03/03/21 07/30/23 [Drisdol (50,000 Iu)] Esomeprazole Magnesium [NexIUM] 20 mg PO DAILY 01/30/22 07/30/23 INSULIN ASPART (NovoLOG) [NovoLOG 20 unit SQ AC-TID 11/26/22 07/30/23 (formulary)] Albuterol Inhaler [Ventolin Hfa 2 puff INHALATION RT-QID 03/01/23 07/30/23 Inhaler] Insulin Glargine,Hum.rec.anlog 30 units SQ HS 07/30/23 07/30/23 [Lantus Solostar Pen] Previous Rx's Medication Instructions Recorded amLODIPine [Norvasc] 10 mg PO DAILY #30 tab 03/11/23 hydrALAZINE HCL [Apresoline] 25 mg PO BID #60 tab 03/11/23 Acetaminophen Tab [Tylenol] 650 mg PO Q6H #30 tab 05/15/23 Ibuprofen [Motrin] 600 mg PO Q8HR PRN #30 tab 05/15/23 Cephalexin [Keflex] 500 mg PO QID #30 cap 08/01/23 Allergies Allergy/AdvReac Type Severity Reaction Status Date / Time levofloxacin [From Levaquin] Allergy Rash/Hives Verified 07/30/23 19:26 Review of Systems ROS Other: All systems not noted in ROS Statement are negative. <Breanna Aguilar - Last Filed: 07/30/23 13:58> ROS Other: All systems not noted in ROS Statement are negative. <Usha Chand - Last Filed: 08/01/23 13:55> ROS Statement: Those systems with pertinent positive or pertinent negative responses have been documented in the HPI. Past Medical History Past Medical History: Diabetes Mellitus, GERD/Reflux, Hyperlipidemia, Hypertension, Syncope Additional Past Medical History / Comment(s): Pt recently admitted to [facility] on 07/21/21 with uncontrolled IDDM and hyperkalemia. Other hx: Recurrent pancreatitis, hypertriglyceridemia, elevated lipase, IDDM type II, UTI, chronic low back pain, bulging discs, dental abscesses in past. History of Any Multi-Drug Resistant Organisms: MRSA Date of last positivie culture/infection: 03/01/23 MDRO Source:: Abdomen Past Surgical History: Tubal Ligation Additional Past Surgical History / Comment(s): Age 7 had VSD repair, tumor removal 03/2023 Past Anesthesia/Blood Transfusion Reactions: No Reported Reaction Past Psychological History: No Psychological Hx Reported Smoking Status: Former smoker, Second hand smoke exposure, Vaper Past Alcohol Use History: None Reported Past Drug Use History: None Reported - Past Family History Mother Family Medical History: No Reported History Additional Family Medical History / Comment(s): Mother was healthy. She is , pt cannot recall cause of . Father Family Medical History: Pneumonia Additional Family Medical History / Comment(s): Father at the age of 67yrs from pneumonia <IsamarsabineBreanna - Last Filed: 07/30/23 13:58> General Exam <Breanna Aguilar - Last Filed: 07/30/23 13:58> Limitations: no limitations General appearance: alert, in no apparent distress Head exam: Present: atraumatic, normocephalic, normal inspection Eye exam: Present: normal appearance, PERRL, EOMI. Absent: scleral icterus, co njunctival injection, periorbital swelling ENT exam: Present: mucous membranes dry Neck exam: Present: normal inspection. Absent: tenderness, meningismus, lymphadenopathy Respiratory exam: Present: normal lung sounds bilaterally. Absent: respiratory distress, wheezes, rales, rhonchi, stridor Cardiovascular Exam: Present: regular rate, normal rhythm, normal heart sounds. Absent: systolic murmur, diastolic murmur, rubs, gallop, clicks GI/Abdominal exam: Present: soft, tenderness (Diffuse abdominal tenderness to palpation), normal bowel sounds. Absent: distended, guarding, rebound, rigid Extremities exam: Present: normal inspection, full ROM, normal capillary refill. Absent: tenderness, pedal edema, joint swelling, calf tenderness Neurological exam: Present: alert, oriented X3 Psychiatric exam: Present: normal affect, normal mood Skin exam: Present: warm, dry, intact, other (small 0.5cm pustule with surrounding erythema to left lateral thigh). Absent: normal color <Usha Chand - Last Filed: 08/01/23 13:55> - General Exam Comments Initial Comments: Visual Physical Exam Vital signs reviewed General: Well-appearing, nontoxic, no acute distress. Head: Normocephalic, atraumatic Eyes: PERRLA, EOMI ENT: Airway patent Chest: Nonlabored breathing Skin: No visual rash, normal skin tone Neuro: Alert and oriented 3 Musculoskeletal: No gross abnormalities (Jeff,Breanna) Course Vital Signs 07/30/23 07/31/23 07/31/23 13:14 00:41 01:25 Temperature 98 F Pulse Rate 72 61 59 L Respiratory 18 18 18 Rate Blood Pressure 146/79 147/90 144/98 O2 Sat by Pulse 96 97 98 Oximetry 07/31/23 07/31/23 07/31/23 03:08 06:26 10:00 Temperature Pulse Rate 75 56 L 62 Respiratory 18 18 20 Rate Blood Pressure 136/75 127/84 127/84 O2 Sat by Pulse 97 98 98 Oximetry 07/31/23 07/31/23 07/31/23 11:44 13:29 14:43 Temperature Pulse Rate 68 64 68 Respiratory 16 16 16 Rate Blood Pressure 145/68 172/98 110/60 O2 Sat by Pulse 98 98 98 Oximetry 07/31/23 07/31/23 07/31/23 16:05 17:05 22:02 Temperature Pulse Rate 58 L 60 57 L Respiratory 12 19 18 Rate Blood Pressure 146/57 166/87 152/73 O2 Sat by Pulse 98 98 97 Oximetry 07/31/23 22:54 Temperature 98.0 F Pulse Rate Respiratory Rate Blood Pressure O2 Sat by Pulse Oximetry Procedures - Incision & Drainage Site: lower extremity <Usha Chand - Last Filed: 08/01/23 13:55> Medical Decision Making <Breanna Aguilar - Last Filed: 07/30/23 13:58> - Lab Data Result diagrams: 07/30/23 16:16 08/01/23 08:42 <Usha Chand - Last Filed: 08/01/23 13:55> - Medical Decision Making I completed the quick note portion of this chart signed Breanna Aguilar PA-C (Breanna Aguilar) Was pt. sent in by a medical professional or institution (ROSALIE Flaherty, CLASSROOM MONITOR, urgent care, hospital, or senior living...) When possible be specific @ -No Did you speak to anyone other than the patient for history (EMS, parent, family, police, friend...)? What history was obtained from this source @ -No Did you review nursing and triage notes (agree or disagree)? Why? @ -I reviewed and agree with nursing and triage notes Were old charts reviewed (outside hosp., previous admission, EMS record, old EKG, old radiological studies, urgent care reports/EKG's, senior living records)? Report findings @ -No old charts were reviewed Differential Diagnosis (chest pain, altered mental status, abdominal pain women, abdominal pain men, vaginal bleeding, weakness, fever, dyspnea, syncope, headache, dizziness, GI bleed, back pain, seizure, CVA, palpatations, mental health, musculoskeletal)? @ -Differential Abdominal Pain Women: Appendicitis, Cholecystitis, diverticulosis, ischemic bowel, pancreatitis, hepatitis, UTI, gastroenteritis, AAA, incarcerated hernia, bowel obstruction, constipation, inflammatory bowel, hepatitis, peptic ulcer disease, splenic infarction, perforated viscus, vulvitis, ovarian torsion, PID, kidney stone, placenta abruption, this is not meant to be an all-inclusive list EKG interpreted by me (3pts min.). @ -None X-rays interpreted by me (1pt min.). @ -None done CT interpreted by me (1pt min.). @ -None done U/S interpreted by me (1pt. min.). @ -None done What testing was considered but not performed or refused? (CT, X-rays, U/S, labs)? Why? @ -None What meds were considered but not given or refused? Why? @ -None Did you discuss the management of the patient with other professionals (professionals i.e. , PA, CLASSROOM MONITOR, lab, RT, psych nurse, manager social responsibility, juice scaleman, teacher, licensed loan officer, embedded case manager)? Give summary @ -Case discussed with Dr. Cerda who is accepting of the admission Was smoking cessation discussed for >3mins.? @ -No Was critical care preformed (if so, how long)? @ -No Were there social determinants of health that impacted care today? How? (Homelessness, low income, unemployed, alcoholism, drug addiction, transportation, low edu. Level, literacy, decrease access to med. care, penitentiary, rehab)? @ -No Was there de-escalation of care discussed even if they declined (Discuss DNR or withdrawal of care, Hospice)? DNR status @ -No What co-morbidities impacted this encounter? (DM, HTN, Smoking, COPD, CAD, Cancer, CVA, ARF, Chemo, Hep., AIDS, mental health diagnosis, sleep apnea, morbid obesity)? @ -DM, hypertriglyceridemia Was patient admitted / discharged? Hospital course, mention meds given and route, prescriptions, significant lab abnormalities, going to OR and other pe rtinent info. @ -Admitted. Patient presented to the emergency department for evaluation of diffuse abdominal discomfort, hyperglycemia. Patient found to have blood glucose of 600. Patient also has elevated anion gap at 18, lactic acidosis of 5.6; mild elevation of lipase at 360 she does have a history of pancreatitis due to hypertriglyceridemia. UA is negative for ketones, 4+ glucose, 1+ protein; patient negative for COVID, influenza, RSV. Upon further evaluation patient is complaining of a spot on her left lateral leg. There is a small pustule/abscess with surrounding erythema. This was drained and wound culture obtained. Patient will be started on p.o. antibiotics for now. Patient was also provided 2 L of normal saline in the emergency department and started on insulin drip with maintenance fluids. Patient will be admitted for DKA. Case discussed with Dr. Cerda who is accepting of the admission. Patient stable at time of admission. Case discussed with Dr. Tobin Undiagnosed new problem with uncertain prognosis? @ -No Drug Therapy requiring intensive monitoring for toxicity (Heparin, Nitro, Insulin, Cardizem)? @ -Insulin Were any procedures done? @ -No Diagnosis/symptom? @ -DKA, pancreatitis Acute, or Chronic, or Acute on Chronic? @ -acute Uncomplicated (without systemic symptoms) or Complicated (systemic symptoms)? @ -uncomplicated Side effects of treatment? @ -No Exacerbation, Progression, or Severe Exacerbation? @ -No Poses a threat to life or bodily function? How? (Chest pain, [place], [place], pneumonia, PE, COPD, DKA, ARF, appy, cholecystitis, CVA, Diverticulitis, Homicidal, Suicidal, threat to staff... and all critical care pts) @ -Yes, DKA (Usha Chand) - Lab Data Lab Results 07/30/23 07/30/23 07/30/23 Range/Units 13:20 13:42 16:16 WBC 12.9 H (3.8-10.6) k/uL RBC 5.20 (3.80-5.40) m/uL Hgb 13.8 (11.4-16.0) gm/dL Hct 43.1 (34.0-46.0) % MCV 82.8 (80.0-100.0) fL MCH 26.6 (25.0-35.0) pg MCHC 32.1 (31.0-37.0) g/dL RDW 16.5 H (11.5-15.5) % Plt Count 528 H (150-450) k/uL MPV 7.6 Neutrophils % 68 % Lymphocytes % 24 % Monocytes % 4 % Eosinophils % 2 % Basophils % 1 % Neutrophils # 8.8 H (1.3-7.7) k/uL Lymphocytes # 3.1 (1.0-4.8) k/uL Monocytes # 0.6 (0-1.0) k/uL Eosinophils # 0.2 (0-0.7) k/uL Basophils # 0.1 (0-0.2) k/uL Anisocytosis Slight Microcytosis Slight Sodium (137-145) mmol/L Potassium (3.5-5.1) mmol/L Chloride (98-107) mmol/L Carbon Dioxide (22-30) mmol/L Anion Gap mmol/L BUN (7-17) mg/dL Creatinine (0.52-1.04) mg/dL Est GFR (CKD-EPI)AfAm (>60 ml/min/1.73 sqM) Est GFR (CKD-EPI)NonAf (>60 ml/min/1.73 sqM) Glucose (74-99) mg/dL POC Glucose (mg/dL) >600 H (70-110) mg/dL POC Glu Edge Polisher ID Beck Janak Lactic Ac Sepsis Rflx Plasma Lactic Acid Travon (0.7-2.0) mmol/L Calcium (8.4-10.2) mg/dL Phosphorus (2.5-4.5) mg/dL Magnesium (1.6-2.3) mg/dL Total Bilirubin (0.2-1.3) mg/dL AST (14-36) U/L ALT (4-34) U/L Alkaline Phosphatase (38-126) U/L Total Protein (6.3-8.2) g/dL Albumin (3.5-5.0) g/dL Amylase (30-110) U/L Lipase (23-300) U/L Urine Color Colorless Urine Appearance Clear (Clear) Urine pH 5.5 (5.0-8.0) Ur Specific [place] 1.024 (1.001-1.035) Urine Protein 1+ H (Negative) Urine Glucose (UA) 4+ H (Negative) Urine Ketones Negative (Negative) Urine Blood Negative (Negative) Urine Nitrite Negative (Negative) Urine Bilirubin Negative (Negative) Urine Urobilinogen <2.0 (<2.0) mg/dL Ur Leukocyte Esterase Negative (Negative) Urine RBC <1 (0-5) /hpf Urine WBC <1 (0-5) /hpf Ur Squamous Epith Cells <1 (0-4) /hpf Influenza Type A (PCR) (Not Detectd) Influenza Type B (PCR) (Not Detectd) RSV (PCR) (Not Detectd) SARS-CoV-2 (PCR) (Not Detectd) 07/30/23 07/30/23 07/30/23 Range/Units 16:16 16:16 16:16 WBC (3.8-10.6) k/uL RBC (3.80-5.40) m/uL Hgb (11.4-16.0) gm/dL Hct (34.0-46.0) % MCV (80.0-100.0) fL MCH (25.0-35.0) pg MCHC (31.0-37.0) g/dL RDW (11.5-15.5) % Plt Count (150-450) k/uL MPV Neutrophils % % Lymphocytes % % Monocytes % % Eosinophils % % Basophils % % Neutrophils # (1.3-7.7) k/uL Lymphocytes # (1.0-4.8) k/uL Monocytes # (0-1.0) k/uL Eosinophils # (0-0.7) k/uL Basophils # (0-0.2) k/uL Anisocytosis Microcytosis Sodium 128 L (137-145) mmol/L Potassium 5.3 H (3.5-5.1) mmol/L Chloride 95 L (98-107) mmol/L Carbon Dioxide 15 L (22-30) mmol/L Anion Gap 18 mmol/L BUN 23 H (7-17) mg/dL Creatinine 0.59 (0.52-1.04) mg/dL Est GFR (CKD-EPI)AfAm >90 (>60 ml/min/1.73 sqM) Est GFR (CKD-EPI)NonAf >90 (>60 ml/min/1.73 sqM) Glucose 608 H* (74-99) mg/dL POC Glucose (mg/dL) (70-110) mg/dL POC Glu Edge Polisher ID Lactic Ac Sepsis Rflx Plasma Lactic Acid Travon 5.6 H* (0.7-2.0) mmol/L Calcium 9.5 (8.4-10.2) mg/dL Phosphorus (2.5-4.5) mg/dL Magnesium 1.4 L (1.6-2.3) mg/dL Total Bilirubin 0.8 (0.2-1.3) mg/dL AST 35 (14-36) U/L ALT 36 H (4-34) U/L Alkaline Phosphatase 172 H (38-126) U/L Total Protein 7.3 (6.3-8.2) g/dL Albumin 3.9 (3.5-5.0) g/dL Amylase 46 (30-110) U/L Lipase 360 H (23-300) U/L Urine Color Urine Appearance (Clear) Urine pH (5.0-8.0) Ur Specific [place] (1.001-1.035) Urine Protein (Negative) Urine Glucose (UA) (Negative) Urine Ketones (Negative) Urine Blood (Negative) Urine Nitrite (Negative) Urine Bilirubin (Negative) Urine Urobilinogen (<2.0) mg/dL Ur Leukocyte Esterase (Negative) Urine RBC (0-5) /hpf Urine WBC (0-5) /hpf Ur Squamous Epith Cells (0-4) /hpf Influenza Type A (PCR) Not Detected (Not Detectd) Influenza Type B (PCR) Not Detected (Not Detectd) RSV (PCR) Not Detected (Not Detectd) SARS-CoV-2 (PCR) Not Detected (Not Detectd) 07/30/23 07/30/23 07/30/23 Range/Units 17:09 18:38 19:24 WBC (3.8-10.6) k/uL RBC (3.80-5.40) m/uL Hgb (11.4-16.0) gm/dL Hct (34.0-46.0) % MCV (80.0-100.0) fL MCH (25.0-35.0) pg MCHC (31.0-37.0) g/dL RDW (11.5-15.5) % Plt Count (150-450) k/uL MPV Neutrophils % % Lymphocytes % % Monocytes % % Eosinophils % % Basophils % % Neutrophils # (1.3-7.7) k/uL Lymphocytes # (1.0-4.8) k/uL Monocytes # (0-1.0) k/uL Eosinophils # (0-0.7) k/uL Basophils # (0-0.2) k/uL Anisocytosis Microcytosis Sodium (137-145) mmol/L Potassium (3.5-5.1) mmol/L Chloride (98-107) mmol/L Carbon Dioxide (22-30) mmol/L Anion Gap mmol/L BUN (7-17) mg/dL Creatinine (0.52-1.04) mg/dL Est GFR (CKD-EPI)AfAm (>60 ml/min/1.73 sqM) Est GFR (CKD-EPI)NonAf (>60 ml/min/1.73 sqM) Glucose (74-99) mg/dL POC Glucose (mg/dL) 420 H (70-110) mg/dL POC Glu Edge Polisher ID Eva Humphreys Lactic Ac Sepsis Rflx Y Plasma Lactic Acid Travon (0.7-2.0) mmol/L Calcium (8.4-10.2) mg/dL Phosphorus 4.0 (2.5-4.5) mg/dL Magnesium (1.6-2.3) mg/dL Total Bilirubin (0.2-1.3) mg/dL AST (14-36) U/L ALT (4-34) U/L Alkaline Phosphatase (38-126) U/L Total Protein (6.3-8.2) g/dL Albumin (3.5-5.0) g/dL Amylase (30-110) U/L Lipase (23-300) U/L Urine Color Urine Appearance (Clear) Urine pH (5.0-8.0) Ur Specific [place] (1.001-1.035) Urine Protein (Negative) Urine Glucose (UA) (Negative) Urine Ketones (Negative) Urine Blood (Negative) Urine Nitrite (Negative) Urine Bilirubin (Negative) Urine Urobilinogen (<2.0) mg/dL Ur Leukocyte Esterase (Negative) Urine RBC (0-5) /hpf Urine WBC (0-5) /hpf Ur Squamous Epith Cells (0-4) /hpf Influenza Type A (PCR) (Not Detectd) Influenza Type B (PCR) (Not Detectd) RSV (PCR) (Not Detectd) SARS-CoV-2 (PCR) (Not Detectd) 07/30/23 07/30/23 07/30/23 Range/Units 19:24 19:24 19:56 WBC (3.8-10.6) k/uL RBC (3.80-5.40) m/uL Hgb (11.4-16.0) gm/dL Hct (34.0-46.0) % MCV (80.0-100.0) fL MCH (25.0-35.0) pg MCHC (31.0-37.0) g/dL RDW (11.5-15.5) % Plt Count (150-450) k/uL MPV Neutrophils % % Lymphocytes % % Monocytes % % Eosinophils % % Basophils % % Neutrophils # (1.3-7.7) k/uL Lymphocytes # (1.0-4.8) k/uL Monocytes # (0-1.0) k/uL Eosinophils # (0-0.7) k/uL Basophils # (0-0.2) k/uL Anisocytosis Microcytosis Sodium 131 L (137-145) mmol/L Potassium 4.0 (3.5-5.1) mmol/L Chloride 103 (98-107) mmol/L Carbon Dioxide 16 L (22-30) mmol/L Anion Gap 12 mmol/L BUN 22 H (7-17) mg/dL Creatinine 0.60 (0.52-1.04) mg/dL Est GFR (CKD-EPI)AfAm >90 (>60 ml/min/1.73 sqM) Est GFR (CKD-EPI)NonAf >90 (>60 ml/min/1.73 sqM) Glucose 374 H (74-99) mg/dL POC Glucose (mg/dL) (70-110) mg/dL POC Glu Edge Polisher ID Lactic Ac Sepsis Rflx Y Plasma Lactic Acid Travon 4.5 H* (0.7-2.0) mmol/L Calcium (8.4-10.2) mg/dL Phosphorus (2.5-4.5) mg/dL Magnesium (1.6-2.3) mg/dL Total Bilirubin (0.2-1.3) mg/dL AST (14-36) U/L ALT (4-34) U/L Alkaline Phosphatase (38-126) U/L Total Protein (6.3-8.2) g/dL Albumin (3.5-5.0) g/dL Amylase (30-110) U/L Lipase (23-300) U/L Urine Color Urine Appearance (Clear) Urine pH (5.0-8.0) Ur Specific [place] (1.001-1.035) Urine Protein (Negative) Urine Glucose (UA) (Negative) Urine Ketones (Negative) Urine Blood (Negative) Urine Nitrite (Negative) Urine Bilirubin (Negative) Urine Urobilinogen (<2.0) mg/dL Ur Leukocyte Esterase (Negative) Urine RBC (0-5) /hpf Urine WBC (0-5) /hpf Ur Squamous Epith Cells (0-4) /hpf Influenza Type A (PCR) (Not Detectd) Influenza Type B (PCR) (Not Detectd) RSV (PCR) (Not Detectd) SARS-CoV-2 (PCR) (Not Detectd) 07/30/23 Range/Units 20:06 WBC (3.8-10.6) k/uL RBC (3.80-5.40) m/uL Hgb (11.4-16.0) gm/dL Hct (34.0-46.0) % MCV (80.0-100.0) fL MCH (25.0-35.0) pg MCHC (31.0-37.0) g/dL RDW (11.5-15.5) % Plt Count (150-450) k/uL MPV Neutrophils % % Lymphocytes % % Monocytes % % Eosinophils % % Basophils % % Neutrophils # (1.3-7.7) k/uL Lymphocytes # (1.0-4.8) k/uL Monocytes # (0-1.0) k/uL Eosinophils # (0-0.7) k/uL Basophils # (0-0.2) k/uL Anisocytosis Microcytosis Sodium (137-145) mmol/L Potassium (3.5-5.1) mmol/L Chloride (98-107) mmol/L Carbon Dioxide (22-30) mmol/L Anion Gap mmol/L BUN (7-17) mg/dL Creatinine (0.52-1.04) mg/dL Est GFR (CKD-EPI)AfAm (>60 ml/min/1.73 sqM) Est GFR (CKD-EPI)NonAf (>60 ml/min/1.73 sqM) Glucose (74-99) mg/dL POC Glucose (mg/dL) 375 H (70-110) mg/dL POC Glu Edge Polisher BELINDA Jaswinder Hernandez Lactic Ac Sepsis Rflx Plasma Lactic Acid Travon (0.7-2.0) mmol/L Calcium (8.4-10.2) mg/dL Phosphorus (2.5-4.5) mg/dL Magnesium (1.6-2.3) mg/dL Total Bilirubin (0.2-1.3) mg/dL AST (14-36) U/L ALT (4-34) U/L Alkaline Phosphatase (38-126) U/L Total Protein (6.3-8.2) g/dL Albumin (3.5-5.0) g/dL Amylase (30-110) U/L Lipase (23-300) U/L Urine Color Urine Appearance (Clear) Urine pH (5.0-8.0) Ur Specific [place] (1.001-1.035) Urine Protein (Negative) Urine Glucose (UA) (Negative) Urine Ketones (Negative) Urine Blood (Negative) Urine Nitrite (Negative) Urine Bilirubin (Negative) Urine Urobilinogen (<2.0) mg/dL Ur Leukocyte Esterase (Negative) Urine RBC (0-5) /hpf Urine WBC (0-5) /hpf Ur Squamous Epith Cells (0-4) /hpf Influenza Type A (PCR) (Not Detectd) Influenza Type B (PCR) (Not Detectd) RSV (PCR) (Not Detectd) SARS-CoV-2 (PCR) (Not Detectd) Disposition <Breanna Aguilar - Last Filed: 07/30/23 13:58> Is patient prescribed a controlled substance at d/c from ED?: No <Usha Chand - Last Filed: 08/01/23 13:55> Clinical Impression: DKA (diabetic ketoacidosis), Pancreatitis, Cellulitis Disposition: ADMITTED IP TO THIS HOSP Condition: Stable
[2023-07-30] MEDS: KETOROLAC 15 MG/ML 1 ML VIAL IVP STA ×2 (16:36→21:01)
[2023-07-30] MEDS: SODIUM CHLORIDE 0.9% 1,000 ML IV ONE ×2 (16:37→16:43)
[2023-07-30 16:42] LABS: Anisocytosis Slight; Basophils # (A) 0.1 k/uL (0-0.2); Basophils % (A) 1 %; Eosinophils # (A) 0.2 k/uL (0-0.7); Eosinophils % (A) 2 %; HCT 43.1 % (34.0-46.0); HGB 13.8 gm/dL (11.4-16.0); Lymphocytes # (A) 3.1 k/uL (1.0-4.8); Lymphocytes % (A) 24 %; MCH 26.6 pg (25.0-35.0); MCHC 32.1 g/dL (31.0-37.0); MCV 82.8 fL (80.0-100.0); Mean Platelet Volume 7.6; Microcytosis Slight; Monocytes # (A) 0.6 k/uL (0-1.0); Monocytes % (A) 4 %; Neutrophils # (A) 8.8 k/uL (1.3-7.7); Neutrophils % (A) 68 %; Platelet Count 528 k/uL (150-450); RDW 16.5 % (11.5-15.5); WBC 12.9 k/uL (3.8-10.6)
[2023-07-30 16:55] LABS: ALT 36 U/L (4-34); African American GFR (CKD) >90 (>60 ml/min/1.73 sqM); Albumin 3.9 g/dL (3.5-5.0); Amylase 46 U/L (30-110); Anion Gap 18 mmol/L; Blood Urea Nitrogen 23 mg/dL (7-17); Calcium 9.5 mg/dL (8.4-10.2); Carbon Dioxide 15 mmol/L (22-30); Chloride 95 mmol/L (98-107); Lipase 360 U/L (23-300); Non-African American GFR(CKD) >90 (>60 ml/min/1.73 sqM); Sodium 128 mmol/L (137-145); Total Bilirubin 0.8 mg/dL (0.2-1.3); Total Protein 7.3 g/dL (6.3-8.2)
[2023-07-30 17:10] LABS: Glucose 608 mg/dL (74-99)
[2023-07-30 17:11] LABS: AST 35 U/L (14-36); Alkaline Phosphatase 172 U/L (38-126); Magnesium 1.4 mg/dL (1.6-2.3); Potassium 5.3 mmol/L (3.5-5.1)
[2023-07-30] MEDS ORDERED: Magnesium Replacement Protocol 1 EACH MISC MISCELLANE PRN (18:12)
[2023-07-30] MEDS ORDERED: Potassium Replacement Protocol 1 EACH MISC MISCELLANE PRN (18:12)
[2023-07-30] MEDS ORDERED: DEXTROSE 50% SYRINGE 50 ML IVP PRN ×2 (18:12)
[2023-07-30 18:40] LABS: Glucose,Whole Blood 420 mg/dL (70-110)
[2023-07-30] MEDS: INSULIN REGULAR 100 UNIT in SODIUM CHLORIDE 0.9% 100 ML IV SCH (18:41)
[2023-07-30] MEDS: INSULIN REGULAR BOLUS (FROM DRIP BAG) IV ONE (18:43)
[2023-07-30 19:55] LABS: African American GFR (CKD) >90 (>60 ml/min/1.73 sqM); Anion Gap 12 mmol/L; Blood Urea Nitrogen 22 mg/dL (7-17); Carbon Dioxide 16 mmol/L (22-30); Chloride 103 mmol/L (98-107); Glucose 374 mg/dL (74-99); Non-African American GFR(CKD) >90 (>60 ml/min/1.73 sqM); Sodium 131 mmol/L (137-145)
[2023-07-30 20:07] LABS: Glucose,Whole Blood 375 mg/dL (70-110)
[2023-07-30] MEDS: SODIUM CHLORIDE 0.9% 1,000 ML IV SCH (21:00)
[2023-07-30 21:16] LABS: Glucose,Whole Blood 402 mg/dL (70-110)
[2023-07-30 22:12] LABS: Glucose,Whole Blood 256 mg/dL (70-110)
[2023-07-30] MEDS: D5-0.45% NACL WITH KCL 20MEQ/L 1,000 ML IV SCH (23:56)
[2023-07-31 00:02] LABS: Glucose,Whole Blood 147 mg/dL (70-110)
[2023-07-31] MEDS: CEPHALEXIN 500 MG CAP PO SCH (00:48)
[2023-07-31 01:01] LABS: African American GFR (CKD) >90 (>60 ml/min/1.73 sqM); Anion Gap 12 mmol/L; Blood Urea Nitrogen 22 mg/dL (7-17); Carbon Dioxide 17 mmol/L (22-30); Chloride 106 mmol/L (98-107); Glucose 127 mg/dL (74-99); Non-African American GFR(CKD) >90 (>60 ml/min/1.73 sqM); Potassium 4.1 mmol/L (3.5-5.1); Sodium 135 mmol/L (137-145)
[2023-07-31 01:25] LABS: Glucose,Whole Blood 160 mg/dL (70-110)
[2023-07-31] MEDS: ACETAMINOPHEN TAB 325 MG TAB PO STA (02:11)
[2023-07-31 02:43] LABS: Glucose,Whole Blood 138 mg/dL (70-110)
[2023-07-31] MEDS: traZODone HCL 50 MG TAB PO STA (02:58)
[2023-07-31 03:50] LABS: Glucose,Whole Blood 285 mg/dL (70-110)
[2023-07-31 04:09] LABS: VBG PH 7.39 (7.31-7.41)
[2023-07-31 04:31] LABS: African American GFR (CKD) >90 (>60 ml/min/1.73 sqM); Anion Gap 11 mmol/L; Blood Urea Nitrogen 21 mg/dL (7-17); Carbon Dioxide 16 mmol/L (22-30); Chloride 105 mmol/L (98-107); Glucose 279 mg/dL (74-99); Non-African American GFR(CKD) >90 (>60 ml/min/1.73 sqM); Potassium 3.8 mmol/L (3.5-5.1); Sodium 132 mmol/L (137-145)
[2023-07-31 04:58] LABS: Glucose,Whole Blood 289 mg/dL (70-110)
[2023-07-31 06:22] LABS: Glucose,Whole Blood 269 mg/dL (70-110)
[2023-07-31 07:18] LABS: Glucose,Whole Blood 246 mg/dL (70-110)
[2023-07-31 07:48] LABS: African American GFR (CKD) >90 (>60 ml/min/1.73 sqM); Anion Gap 11 mmol/L; Blood Urea Nitrogen 18 mg/dL (7-17); Carbon Dioxide 16 mmol/L (22-30); Chloride 108 mmol/L (98-107); Glucose 234 mg/dL (74-99); Non-African American GFR(CKD) >90 (>60 ml/min/1.73 sqM); Sodium 135 mmol/L (137-145)
[2023-07-31 10:13] LABS: Glucose,Whole Blood 209 mg/dL (70-110)
[2023-07-31 11:39] LABS: Glucose,Whole Blood 173 mg/dL (70-110)
[2023-07-31 13:40] LABS: Glucose,Whole Blood 155 mg/dL (70-110)
[2023-07-31 14:43] LABS: Glucose,Whole Blood 163 mg/dL (70-110)
[2023-07-31 16:01] LABS: Glucose,Whole Blood 195 mg/dL (70-110)
[2023-07-31 17:07] LABS: Glucose,Whole Blood 192 mg/dL (70-110)
[2023-07-31] MEDS: INSULIN ASPART (NovoLOG) 100 UNIT/ML VIAL SQ SCH (17:15)
[2023-07-31 18:07] LABS: Glucose,Whole Blood 221 mg/dL (70-110)
[2023-07-31 19:15] LABS: Glucose,Whole Blood 181 mg/dL (70-110)
[2023-07-31] MEDS: traMADol 50 MG TAB PO PRN (19:18)
[2023-07-31 20:16] LABS: Glucose,Whole Blood 158 mg/dL (70-110)
[2023-07-31] MEDS: INSULIN DETEMIR (LEVEMIR) 100 UNIT/ML SYR SQ SCH (21:30)
[2023-07-31 21:31] LABS: Glucose,Whole Blood 192 mg/dL (70-110)
[2023-07-31 22:18] LABS: Glucose,Whole Blood 172 mg/dL (70-110)
[2023-08-01 00:19] LABS: Glucose,Whole Blood 198 mg/dL (70-110)
[2023-08-01 01:09] LABS: Glucose,Whole Blood 234 mg/dL (70-110)
[2023-08-01 01:56] LABS: Glucose,Whole Blood 283 mg/dL (70-110)
[2023-08-01 03:10] LABS: Glucose,Whole Blood 254 mg/dL (70-110)
[2023-08-01 04:08] LABS: Glucose,Whole Blood 265 mg/dL (70-110)
[2023-08-01 05:04] VITALS: TEMP 98.4
[2023-08-01 05:09] LABS: Glucose,Whole Blood 201 mg/dL (70-110)
[2023-08-01 05:59] LABS: Glucose,Whole Blood 263 mg/dL (70-110)
[2023-08-01 07:02] LABS: Glucose,Whole Blood 246 mg/dL (70-110)
[2023-08-01 07:58] LABS: Glucose,Whole Blood 178 mg/dL (70-110)
[2023-08-01 09:03] LABS: Glucose,Whole Blood 167 mg/dL (70-110)
[2023-08-01 09:53] LABS: Glucose,Whole Blood 153 mg/dL (70-110)
[2023-08-01 10:59] LABS: Glucose,Whole Blood 133 mg/dL (70-110)
[2023-08-01 11:21] LABS: African American GFR (CKD) >90 (>60 ml/min/1.73 sqM); Anion Gap 8 mmol/L; Blood Urea Nitrogen 12 mg/dL (7-17); Calcium 8.3 mg/dL (8.4-10.2); Carbon Dioxide 17 mmol/L (22-30); Chloride 109 mmol/L (98-107); Glucose 163 mg/dL (74-99); Non-African American GFR(CKD) >90 (>60 ml/min/1.73 sqM); Potassium 4.4 mmol/L (3.5-5.1); Sodium 134 mmol/L (137-145)
[2023-08-01 11:49] LABS: Glucose,Whole Blood 138 mg/dL (70-110)
[2023-08-01 13:03] LABS: Glucose,Whole Blood 148 mg/dL (70-110)
[2023-08-01 13:13] VITALS: BMI 35.2
[2023-08-01 13:58] VITALS: BP 132/63; PULSE 59; RESP 16
--- NOTE | 2023-08-01 23:52 | DS ---
DISCHARGE SUMMARY CHIEF COMPLAINT: Diabetic ketoacidosis. HISTORY OF PRESENT ILLNESS AND PHYSICAL EXAMINATION: Details of this lady's history and physical can be found in the initial workup. LABORATORY STUDIES: While she was in the hospital, she had laboratory studies, details of which can be found in the laboratory section of her chart. COURSE IN THE HOSPITAL: After admission, she was placed on bedrest, started intravenous fluids and DKA protocol. Sugars came down to normal. Her gap closed. She was doing well and it was felt she could be discharged on the . She will go home on her usual diet and medication. It is not likely that she will take these. She is very noncompliant and usually does not follow up in the office or take her medications. FINAL DIAGNOSES: 1. Diabetic ketoacidosis. 2. Noncompliant patient. 3. Dehydration. 4. Pancreatitis. 5. Hypertriglyceridemia. 6. Folliculitis of the thigh. OPERATIONS: None. CONSULTATIONS: None, she has improved. MMPAULA / EVELINN: [id number] /
--- NOTE | 2023-08-02 04:49 | HP ---
HISTORY AND PHYSICAL CHIEF COMPLAINT: Diabetic ketoacidosis. HISTORY OF PRESENT ILLNESS: This is another admission for this 52-year-old noncompliant white female. She has insulin-dependent diabetes and does not take her insulin regularly. She also has a history of hypertriglyceridemia and pancreatitis. She came to the emergency room with an elevated blood sugar, nausea, and vomiting. She admits that she has not been taking her insulin. Lipase is elevated. REVIEW OF SYSTEMS: She denies any neurologic deficits, problems with the vision, chest pain, shortness of breath, abdominal pain, diarrhea, melena, etc. Past medical history, family history, and personal and social histories are all otherwise unremarkable and unchanged from previous admissions. She is not compliant. She does not come to the office. PHYSICAL EXAMINATION: VITAL SIGNS: Normal. HEAD, EARS, EYES, NOSE, AND MOUTH: Normal except for dry mucous membranes. NECK: Supple. CHEST: Clear. CARDIAC: Normal. ABDOMEN: Protuberant, soft and nontender. Bowel sounds are present. EXTREMITIES: Normal. NEUROLOGICAL: She is intact. IMPRESSION: She is admitted to the hospital with diagnosis of, 1. Diabetic ketoacidosis. 2. Uncontrolled type 2 diabetes mellitus. 3. Noncompliant patient. 4. Pancreatitis. 5. Hypertriglyceridemia. PLAN: 1. Bed rest. 2. IV fluids. 3. DKA protocol. 4. Obtain triglyceride level. MMODL / IJN: [id number] /
--- NOTE | 2023-08-02 06:18 | PN ---
PROGRESS NOTE DATE OF SERVICE: 07/31/2023 CHIEF COMPLAINTS: Diabetic ketoacidosis, pancreatitis, hypertriglyceridemia, and folliculitis. HISTORY OF PRESENT ILLNESS: This lady is doing better. She is not complaining of any chest pain or abdominal pain. She has not had any nausea or vomiting. PHYSICAL EXAMINATION: CHEST: Clear. CARDIAC: Normal. ABDOMEN: Protuberant, soft, and nontender. IMPRESSION: 1. Diabetic ketoacidosis. 2. Dehydration. 3. Noncompliant patient. 4. Pancreatitis. PLAN: Continue efforts to bring her blood sugars under control. She admits that she has not been taking her insulin. MMODL / IJN: [id number] /
== END 2023-08-01 14:21 | disposition home or self-care (01) | DRG 637 ==
LOC: EC 13:04 → 3SCARD 21:09
PROVIDERS: ADMIT Family Medicine; ATTEND Family Medicine
DX: E11.10 Type 2 diabetes mellitus with ketoacidosis without coma (principal); K85.90 Acute pancreatitis without necrosis or infection, unspecified; K86.1 Other chronic pancreatitis; E78.1 Pure hyperglyceridemia; E86.0 Dehydration; L73.9 Follicular disorder, unspecified; Z79.4 Long term (current) use of insulin; Z79.899 Other long term (current) drug therapy; Z91.199 Patient's noncompliance with other medical treatment and regimen due to unspecified reason; Z91.128 Patient's intentional underdosing of medication regimen for other reason; T38.3X6A Underdosing of insulin and oral hypoglycemic [antidiabetic] drugs, initial encounter; X58.XXXA Exposure to other specified factors, initial encounter
CPT/HCPCS: 36415; 80048; 80051; 80053; 81001; 82009; 82150; 82565; 82803; 82947; 83605; 83690; 83735; 84100; 84478; 84520; 85025; 87086; 87636; 96361; 96365; 96366; 96375; 99285

== ENCOUNTER 2023-08-21 02:10 | Emergency (ER) | payer MEDICARE ==
--- NOTE | 2023-08-21 02:54 | ED ---
Headache HPI - General Chief Complaint: Headache Stated Complaint: weakness Time Seen by Provider: 08/21/23 02:21 Mode of arrival: EMS Limitations: no limitations - History of Present Illness Initial Comments: 52-year-old female presents to the emergency department reporting generalized weakness, nausea and vomiting. States that she has been having difficulty eating and drinking due to the nausea. She has generalized abdominal pain. She did not take anything for her symptoms. Denies any sick contacts. States that she has been taking her prescribed medications as directed. No other alleviating, precipitating or modifying factors - Related Data Home Medications Medication Instructions Recorded Confirmed Atorvastatin [Lipitor] 80 mg PO HS 06/25/19 07/30/23 lisinopriL 40 mg PO DAILY 09/24/20 07/30/23 traZODone HCL 50 mg PO HS PRN 01/11/21 07/30/23 Ergocalciferol (Vitamin D2) 1,250 mcg PO TU 03/03/21 07/30/23 [Drisdol (50,000 Iu)] Esomeprazole Magnesium [NexIUM] 20 mg PO DAILY 01/30/22 07/30/23 INSULIN ASPART (NovoLOG) [NovoLOG 20 unit SQ AC-TID 11/26/22 07/30/23 (formulary)] Albuterol Inhaler [Ventolin Hfa 2 puff INHALATION RT-QID 03/01/23 07/30/23 Inhaler] Insulin Glargine,Hum.rec.anlog 30 units SQ HS 07/30/23 07/30/23 [Lantus Solostar Pen] Previous Rx's Medication Instructions Recorded amLODIPine [Norvasc] 10 mg PO DAILY #30 tab 03/11/23 hydrALAZINE HCL [Apresoline] 25 mg PO BID #60 tab 03/11/23 Acetaminophen Tab [Tylenol] 650 mg PO Q6H #30 tab 05/15/23 Ibuprofen [Motrin] 600 mg PO Q8HR PRN #30 tab 05/15/23 Cephalexin [Keflex] 500 mg PO QID #30 cap 08/01/23 Allergies Allergy/AdvReac Type Severity Reaction Status Date / Time levofloxacin [From Levaquin] Allergy Rash/Hives Verified 08/21/23 02:17 Review of Systems ROS Statement: Those systems with pertinent positive or pertinent negative responses have been documented in the HPI. ROS Other: All systems not noted in ROS Statement are negative. Past Medical History Past Medical History: Diabetes Mellitus, GERD/Reflux, Hyperlipidemia, Hypertension, Syncope Additional Past Medical History / Comment(s): Pt recently admitted to [facility] on 07/21/21 with uncontrolled IDDM and hyperkalemia. Other hx: Recurrent pancreatitis, hypertriglyceridemia, elevated lipase, IDDM type II, UTI, chronic low back pain, bulging discs, dental abscesses in past. History of Any Multi-Drug Resistant Organisms: MRSA Date of last positivie culture/infection: 03/01/23 MDRO Source:: Abdomen Past Surgical History: Tubal Ligation Additional Past Surgical History / Comment(s): Age 7 had VSD repair, tumor removal 03/2023 Past Anesthesia/Blood Transfusion Reactions: No Reported Reaction Past Psychological History: No Psychological Hx Reported Smoking Status: Former smoker, Second hand smoke exposure, Vaper Past Alcohol Use History: None Reported Past Drug Use History: None Reported - Past Family History Mother Family Medical History: No Reported History Additional Family Medical History / Comment(s): Mother was healthy. She is , pt cannot recall cause of . Father Family Medical History: Pneumonia Additional Family Medical History / Comment(s): Father at the age of 67yrs from pneumonia General Exam Limitations: no limitations General appearance: alert, in no apparent distress Head exam: Present: atraumatic, normocephalic, normal inspection Eye exam: Present: normal appearance, PERRL, EOMI. Absent: scleral icterus, conjunctival injection, periorbital swelling ENT exam: Present: normal exam, mucous membranes moist Neck exam: Present: normal inspection. Absent: tenderness, meningismus, lymphadenopathy Respiratory exam: Present: normal lung sounds bilaterally. Absent: respiratory distress, wheezes, rales, rhonchi, stridor Cardiovascular Exam: Present: regular rate, normal rhythm, normal heart sounds. Absent: systolic murmur, diastolic murmur, rubs, gallop, clicks GI/Abdominal exam: Present: soft, normal bowel sounds. Absent: distended, tenderness, guarding, rebound, rigid Extremities exam: Present: normal inspection, full ROM, normal capillary refill. Absent: tenderness, pedal edema, joint swelling, calf tenderness Back exam: Present: normal inspection Neurological exam: Present: alert, oriented X3, CN II-XII intact Psychiatric exam: Present: normal affect, normal mood Skin exam: Present: warm, dry, intact, normal color. Absent: rash Course Vital Signs 08/21/23 08/21/23 02:11 06:23 Temperature 98.1 F 98.2 F Pulse Rate 70 78 Respiratory 22 20 Rate Blood Pressure 150/83 145/80 O2 Sat by Pulse 98 98 Oximetry Medical Decision Making - Medical Decision Making Was pt. sent in by a medical professional or institution (, PA, TORPEDO SPECIALIST, urgent care, hospital, or skilled nursing...) When possible be specific @ -No Did you speak to anyone other than the patient for history (EMS, parent, family, police, friend...)? What history was obtained from this source @ -No Did you review nursing and triage notes (agree or disagree)? Why? @ -I reviewed and agree with nursing and triage notes Were old charts reviewed (outside hosp., previous admission, EMS record, old EKG, old radiological studies, urgent care reports/EKG's, skilled nursing records)? Report findings @ -No old charts were reviewed Differential Diagnosis (chest pain, altered mental status, abdominal pain women, abdominal pain men, vaginal bleeding, weakness, fever, dyspnea, syncope, headache, dizziness, GI bleed, back pain, seizure, CVA, palpatations, mental health, musculoskeletal)? @ -Differential Abdominal Pain Women: Appendicitis, Cholecystitis, diverticulosis, ischemic bowel, pancreatitis, hepatitis, UTI, gastroenteritis, AAA, incarcerated hernia, bowel obstruction, constipation, inflammatory bowel, hepatitis, peptic ulcer disease, splenic infarction, perforated viscus, vulvitis, ovarian torsion, PID, kidney stone, placenta abruption, this is not meant to be an all-inclusive list EKG interpreted by me (3pts min.). @ -Not done X-rays interpreted by me (1pt min.). @ -None done CT interpreted by me (1pt min.). @ -None done U/S interpreted by me (1pt. min.). @ -None done What testing was considered but not performed or refused? (CT, X-rays, U/S, labs)? Why? @ -None What meds were considered but not given or refused? Why? @ -None Did you discuss the management of the patient with other professionals (pro fessionals i.e. , PA, TORPEDO SPECIALIST, lab, RT, psych nurse, social science instructor, public health worker, teacher, field artillery officer, case packer and sealer)? Give summary @ -No Was smoking cessation discussed for >3mins.? @ -No Was critical care preformed (if so, how long)? @ -No Were there social determinants of health that impacted care today? How? (Homelessness, low income, unemployed, alcoholism, drug addiction, transportation, low edu. Level, literacy, decrease access to med. care, senior care, rehab)? @ -No Was there de-escalation of care discussed even if they declined (Discuss DNR or withdrawal of care, Hospice)? DNR status @ -No What co-morbidities impacted this encounter? (DM, HTN, Smoking, COPD, CAD, Cancer, CVA, ARF, Chemo, Hep., AIDS, mental health diagnosis, sleep apnea, morbid obesity)? @ -Diabetes mellitus Was patient admitted / discharged? Hospital course, mention meds given and route, prescriptions, significant lab abnormalities, going to OR and other pertinent info. @ -Upon arrival patient was seen and evaluated in room 33. Thorough history and physical exam was performed. IV was established. Patient was given pain and nausea medications. Laboratory studies are conducted and reviewed. Patient does have hyperglycemia. Patient is frequently in the emergency department and does have hyperglycemia. I did inform her that I am concerned for gastroenteritis due to her uncontrolled diabetes. Did stressed that she needs to take her insulin as directed. She was given 15 units of insulin in the emergency department prior to departure. Patient has to follow-up with her primary care doctor and return for any new or worsening symptoms Undiagnosed new problem with uncertain prognosis? @ -No Drug Therapy requiring intensive monitoring for toxicity (Heparin, Nitro, Insulin, Cardizem)? @ -No Were any procedures done? @ -No Diagnosis/symptom? @ -Acute nausea vomiting, acute hyperglycemia, history of diabetes mellitus Acute, or Chronic, or Acute on Chronic? @ -Acute on chronic Uncomplicated (without systemic symptoms) or Complicated (systemic symptoms)? @ -Complicated Side effects of treatment? @ -No Exacerbation, Progression, or Severe Exacerbation? @ -No Poses a threat to life or bodily function? How? (Chest pain, USA, CT, pneumonia, PE, COPD, DKA, ARF, appy, cholecystitis, CVA, Diverticulitis, Homicidal, Suicidal, threat to staff... and all critical care pts) @ -No - Lab Data Result diagrams: 08/21/23 04:10 08/21/23 04:10 Lab Results 08/21/23 08/21/23 08/21/23 Range/Units 03:50 04:10 04:10 WBC 11.0 H (3.8-10.6) k/uL RBC 4.96 (3.80-5.40) m/uL Hgb 15.0 (11.4-16.0) gm/dL Hct 41.9 (34.0-46.0) % MCV 84.5 (80.0-100.0) fL MCH 30.3 (25.0-35.0) pg MCHC 35.8 (31.0-37.0) g/dL RDW 16.4 H (11.5-15.5) % Plt Count 606 H (150-450) k/uL MPV 7.3 Neutrophils % 69 % Lymphocytes % 23 % Monocytes % 4 % Eosinophils % 2 % Basophils % 1 % Neutrophils # 7.5 (1.3-7.7) k/uL Lymphocytes # 2.6 (1.0-4.8) k/uL Monocytes # 0.4 (0-1.0) k/uL Eosinophils # 0.3 (0-0.7) k/uL Basophils # 0.1 (0-0.2) k/uL Anisocytosis Slight Sodium 128 L (137-145) mmol/L Potassium 5.2 H (3.5-5.1) mmol/L Chloride 100 (98-107) mmol/L Carbon Dioxide 15 L (22-30) mmol/L Anion Gap 13 mmol/L BUN 16 (7-17) mg/dL Creatinine 0.61 (0.52-1.04) mg/dL Est GFR (CKD-EPI)AfAm >90 (>60 ml/min/1.73 sqM) Est GFR (CKD-EPI)NonAf >90 (>60 ml/min/1.73 sqM) Glucose 472 H (74-99) mg/dL POC Glucose (mg/dL) (70-110) mg/dL POC Glu Paperhanger Assistant ID Calcium 8.7 (8.4-10.2) mg/dL Total Bilirubin 0.6 (0.2-1.3) mg/dL AST 36 (14-36) U/L ALT 25 (4-34) U/L Alkaline Phosphatase 176 H (38-126) U/L Troponin I (0.000-0.034) ng/mL Total Protein 6.9 (6.3-8.2) g/dL Albumin 3.6 (3.5-5.0) g/dL Lipase 260 (23-300) U/L Urine Color Colorless Urine Appearance Clear (Clear) Urine pH 5.5 (5.0-8.0) Ur Specific [place] 1.029 (1.001-1.035) Urine Protein 1+ H (Negative) Urine Glucose (UA) 4+ H (Negative) Urine Ketones Negative (Negative) Urine Blood Negative (Negative) Urine Nitrite Negative (Negative) Urine Bilirubin Negative (Negative) Urine Urobilinogen <2.0 (<2.0) mg/dL Ur Leukocyte Esterase Negative (Negative) Urine RBC 1 (0-5) /hpf Urine WBC 2 (0-5) /hpf Ur Squamous Epith Cells 3 (0-4) /hpf Amorphous Sediment Rare H (None) /hpf Hyaline Casts 3 H (0-2) /lpf 08/21/23 08/21/23 Range/Units 04:17 05:55 WBC (3.8-10.6) k/uL RBC (3.80-5.40) m/uL Hgb (11.4-16.0) gm/dL Hct (34.0-46.0) % MCV (80.0-100.0) fL MCH (25.0-35.0) pg MCHC (31.0-37.0) g/dL RDW (11.5-15.5) % Plt Count (150-450) k/uL MPV Neutrophils % % Lymphocytes % % Monocytes % % Eosinophils % % Basophils % % Neutrophils # (1.3-7.7) k/uL Lymphocytes # (1.0-4.8) k/uL Monocytes # (0-1.0) k/uL Eosinophils # (0-0.7) k/uL Basophils # (0-0.2) k/uL Anisocytosis Sodium (137-145) mmol/L Potassium (3.5-5.1) mmol/L Chloride (98-107) mmol/L Carbon Dioxide (22-30) mmol/L Anion Gap mmol/L BUN (7-17) mg/dL Creatinine (0.52-1.04) mg/dL Est GFR (CKD-EPI)AfAm (>60 ml/min/1.73 sqM) Est GFR (CKD-EPI)NonAf (>60 ml/min/1.73 sqM) Glucose (74-99) mg/dL POC Glucose (mg/dL) 413 H (70-110) mg/dL POC Glu Paperhanger Assistant ID Irene Garg Calcium (8.4-10.2) mg/dL Total Bilirubin (0.2-1.3) mg/dL AST (14-36) U/L ALT (4-34) U/L Alkaline Phosphatase (38-126) U/L Troponin I <0.012 (0.000-0.034) ng/mL Total Protein (6.3-8.2) g/dL Albumin (3.5-5.0) g/dL Lipase (23-300) U/L Urine Color Urine Appearance (Clear) Urine pH (5.0-8.0) Ur Specific [place] (1.001-1.035) Urine Protein (Negative) Urine Glucose (UA) (Negative) Urine Ketones (Negative) Urine Blood (Negative) Urine Nitrite (Negative) Urine Bilirubin (Negative) Urine Urobilinogen (<2.0) mg/dL Ur Leukocyte Esterase (Negative) Urine RBC (0-5) /hpf Urine WBC (0-5) /hpf Ur Squamous Epith Cells (0-4) /hpf Amorphous Sediment (None) /hpf Hyaline Casts (0-2) /lpf Disposition Clinical Impression: Nausea & vomiting, Abdominal pain, Hyperglycemia Disposition: HOME SELF-CARE Condition: Stable Instructions (If sedation given, give patient instructions): Abdominal Pain (ED) Additional Instructions: Please follow-up with your primary care doctor. Take your medications as instructed and return for any new or worsening symptoms Is patient prescribed a controlled substance at d/c from ED?: No Referrals: Guillermo Cerda MD [Primary Care Provider] - 1-2 days Time of Disposition: 06:00
[2023-08-21] MEDS: METOCLOPRAMIDE 5 MG/ML 2 ML VIAL IVP STA (04:27)
[2023-08-21] MEDS: KETOROLAC 15 MG/ML 1 ML VIAL IVP STA (04:28)
[2023-08-21] MEDS: diphenhydrAMINE 50 MG/ML 1 ML VIAL IVP STA (04:29)
[2023-08-21 04:33] LABS: Anisocytosis Slight; Basophils # (A) 0.1 k/uL (0-0.2); Basophils % (A) 1 %; Eosinophils # (A) 0.3 k/uL (0-0.7); Eosinophils % (A) 2 %; HCT 41.9 % (34.0-46.0); Lymphocytes # (A) 2.6 k/uL (1.0-4.8); Lymphocytes % (A) 23 %; MCH 30.3 pg (25.0-35.0); MCHC 35.8 g/dL (31.0-37.0); MCV 84.5 fL (80.0-100.0); Mean Platelet Volume 7.3; Monocytes # (A) 0.4 k/uL (0-1.0); Monocytes % (A) 4 %; Neutrophils # (A) 7.5 k/uL (1.3-7.7); Neutrophils % (A) 69 %; Platelet Count 606 k/uL (150-450); RBC 4.96 m/uL (3.80-5.40); RDW 16.4 % (11.5-15.5)
[2023-08-21 04:42] LABS: ALT 25 U/L (4-34); AST 36 U/L (14-36); African American GFR (CKD) >90 (>60 ml/min/1.73 sqM); Albumin 3.6 g/dL (3.5-5.0); Alkaline Phosphatase 176 U/L (38-126); Blood Urea Nitrogen 16 mg/dL (7-17); Calcium 8.7 mg/dL (8.4-10.2); Carbon Dioxide 15 mmol/L (22-30); Glucose 472 mg/dL (74-99); Lipase 260 U/L (23-300); Non-African American GFR(CKD) >90 (>60 ml/min/1.73 sqM); Total Bilirubin 0.6 mg/dL (0.2-1.3); Total Protein 6.9 g/dL (6.3-8.2)
[2023-08-21 05:22] LABS: Amorphous Sediment,Urine Rare /hpf; Appearance,Urine Clear (Clear); Bilirubin,Urine Negative (Negative); Blood,Urine Negative (Negative); Color,Urine Colorless; Glucose,Urine (UA) 4+ (Negative); Hyaline Casts,Urine 3 /lpf (0-2); Ketones,Urine Negative (Negative); Leukocyte Esterase,Urine Negative (Negative); Nitrite,Urine Negative (Negative); PH, Urine 5.5 (5.0-8.0); Protein,Urine 1+ (Negative); RBC,Urine 1 /hpf (0-5); Specific Gravity,Urine 1.029 (1.001-1.035); Squamous Epithelial Cell,Urine 3 /hpf (0-4); Urobilinogen,Urine <2.0 mg/dL (<2.0); WBC,Urine 2 /hpf (0-5)
[2023-08-21 05:55] LABS: Anion Gap 13 mmol/L; Chloride 100 mmol/L (98-107); Potassium 5.2 mmol/L (3.5-5.1); Sodium 128 mmol/L (137-145)
[2023-08-21 05:58] LABS: Glucose,Whole Blood 413 mg/dL (70-110)
[2023-08-21] MEDS: INSULIN REGULAR 100 UNIT/ML VIAL (IM/SQ) SQ ONE (06:05)
[2023-08-21 07:11] VITALS: BP 145/80; PULSE 78; RESP 20; TEMP 98.2
== END 2023-08-21 06:29 | disposition home or self-care (01) ==
LOC: EC 02:10
DX: E11.65 Type 2 diabetes mellitus with hyperglycemia (principal); F17.290 Nicotine dependence, other tobacco product, uncomplicated; Z79.4 Long term (current) use of insulin; Z88.1 Allergy status to other antibiotic agents
CPT/HCPCS: 99284; 96374; 96375 ×2; 36415; 93005; 80053; 83690; 84484; 85025; 81001; J1200; J2765; J1885

== ENCOUNTER 2023-09-08 17:16 | Emergency (ER) | payer MEDICARE ==
[2023-09-08 17:53] VITALS: RESP 16; TEMP 98.3
--- NOTE | 2023-09-08 18:51 | ED ---
General Adult HPI - General Chief complaint: Abdominal Pain Stated complaint: Acid-reflux issue Time Seen by Provider: 09/08/23 18:41 Source: patient, RN notes reviewed Mode of arrival: ambulatory Limitations: no limitations - History of Present Illness Initial comments: 52-year-old female with history of GERD, diabetes melitis, hyperlipidemia, and hypertension presenting with chief complaint of chest pain x 2 days. Patient describes the pain as a midsternal burning pain that radiates into her throat. States this began after a meal 2 nights ago and is much worse with meals and laying down flat. Patient is also endorsing cough, nasal congestion, nausea, and sore throat. Denies fever or wheezing. States this feels similar to previous GERD flares. Has not taken any meds at home for this. Patient does have a history of stent placement several years ago. Patient has history of uncontrolled diabetes and reports taking 20 units NovoLog with every meal, last dose was at lunchtime. - Related Data Home Medications Medication Instructions Recorded Confirmed Atorvastatin [Lipitor] 80 mg PO HS 06/25/19 07/30/23 lisinopriL 40 mg PO DAILY 09/24/20 07/30/23 traZODone HCL 50 mg PO HS PRN 01/11/21 07/30/23 Ergocalciferol (Vitamin D2) 1,250 mcg PO TU 03/03/21 07/30/23 [Drisdol (50,000 Iu)] Esomeprazole Magnesium [NexIUM] 20 mg PO DAILY 01/30/22 07/30/23 INSULIN ASPART (NovoLOG) [NovoLOG 20 unit SQ AC-TID 11/26/22 07/30/23 (formulary)] Albuterol Inhaler [Ventolin Hfa 2 puff INHALATION RT-QID 03/01/23 07/30/23 Inhaler] Insulin Glargine,Hum.rec.anlog 30 units SQ HS 07/30/23 07/30/23 [Lantus Solostar Pen] Previous Rx's Medication Instructions Recorded amLODIPine [Norvasc] 10 mg PO DAILY #30 tab 03/11/23 hydrALAZINE HCL [Apresoline] 25 mg PO BID #60 tab 03/11/23 Acetaminophen Tab [Tylenol] 650 mg PO Q6H #30 tab 05/15/23 Ibuprofen [Motrin] 600 mg PO Q8HR PRN #30 tab 05/15/23 Cephalexin [Keflex] 500 mg PO QID #30 cap 08/01/23 Allergies Allergy/AdvReac Type Severity Reaction Status Date / Time levofloxacin [From Levaquin] Allergy Rash/Hives Verified 09/08/23 17:45 Review of Systems ROS Statement: Those systems with pertinent positive or pertinent negative responses have been documented in the HPI. ROS Other: All systems not noted in ROS Statement are negative. Past Medical History Past Medical History: Diabetes Mellitus, GERD/Reflux, Hyperlipidemia, Hypertension, Syncope Additional Past Medical History / Comment(s): Pt recently admitted to [facility] on with uncontrolled IDDM and hyperkalemia. Other hx: Recurrent pancreatitis, hypertriglyceridemia, elevated lipase, IDDM type II, UTI, chronic low back pain, bulging discs, dental abscesses in past. History of Any Multi-Drug Resistant Organisms: MRSA Date of last positivie culture/infection: 03/01/23 MDRO Source:: Abdomen Past Surgical History: Tubal Ligation Additional Past Surgical History / Comment(s): Age 7 had VSD repair, tumor removal 03/2023 Past Anesthesia/Blood Transfusion Reactions: No Reported Reaction Past Psychological History: No Psychological Hx Reported Smoking Status: Former smoker, Second hand smoke exposure, Vaper Past Alcohol Use History: None Reported Past Drug Use History: None Reported - Past Family History Mother Family Medical History: No Reported History Additional Family Medical History / Comment(s): Mother was healthy. She is , pt cannot recall cause of . Father Family Medical History: Pneumonia Additional Family Medical History / Comment(s): Father at the age of 67yrs from pneumonia General Exam Limitations: no limitations General appearance: alert, in no apparent distress Head exam: Present: atraumatic, normocephalic, normal inspection Eye exam: Present: normal appearance, PERRL, EOMI. Absent: scleral icterus, conjunctival injection, periorbital swelling ENT exam: Present: normal exam, normal oropharynx, mucous membranes moist Neck exam: Present: normal inspection. Absent: tenderness, meningismus, lymphadenopathy Respiratory exam: Present: normal lung sounds bilaterally. Absent: respiratory distress, wheezes, rales, rhonchi, stridor Cardiovascular Exam: Present: regular rate, normal rhythm, normal heart sounds. Absent: systolic murmur, diastolic murmur, rubs, gallop, clicks GI/Abdominal exam: Present: soft, normal bowel sounds. Absent: distended, tenderness, guarding, rebound, rigid Neurological exam: Present: alert, oriented X3, CN II-XII intact Psychiatric exam: Present: normal affect, normal mood Skin exam: Present: warm, dry, intact, normal color. Absent: rash Course Vital Signs 09/08/23 09/08/23 09/08/23 17:43 19:56 23:16 Temperature 98.3 F Pulse Rate 74 77 65 Respiratory 16 16 16 Rate Blood Pressure 136/83 144/78 137/75 O2 Sat by Pulse 96 99 98 Oximetry EKG Findings - EKG Results: EKG: interpreted by PEYTON (EKG reveals normal sinus rhythm with no ST changes. Ventricular rate 72 bpm, DC interval 152, QRS duration 90, QT/QTc 367/392) Medical Decision Making - Medical Decision Making Was pt. sent in by a medical professional or institution (, PA, CLINICAL DIETICIAN, urgent care, hospital, or snf...) When possible be specific @ -No Did you speak to anyone other than the patient for history (EMS, parent, family, police, friend...)? What history was obtained from this source @ -No Did you review nursing and triage notes (agree or disagree)? Why? @ -I reviewed and agree with nursing and triage notes Were old charts reviewed (outside hosp., previous admission, EMS record, old EKG, old radiological studies, urgent care reports/EKG's, snf records)? Report findings @ -Previous ER visits reviewed including previous lab work. Last glucose was 472 and last sodium was 128 on August 20 Differential Diagnosis (chest pain, altered mental status, abdominal pain women, abdominal pain men, vaginal bleeding, weakness, fever, dyspnea, syncope, headache, dizziness, GI bleed, back pain, seizure, CVA, palpatations, mental health, musculoskeletal)? @ -Differential Chest Pain: Stable Angina, Unstable Angina, STEMI, NSTEMI Aortic Dissection, Pneumothorax, Musculoskeletal, Esophageal Spasm GERD, Cholecystitis, Pancreatitis, Zoster, this is not meant to be an all-inclusive list. EKG interpreted by me (3pts min.). @ -As above X-rays interpreted by me (1pt min.). @ -Chest x-ray reveals no acute process CT interpreted by me (1pt min.). @ -None done U/S interpreted by me (1pt. min.). @ -None done What testing was considered but not performed or refused? (CT, X-rays, U/S, labs)? Why? @ -None What meds were considered but not given or refused? Why? @ -None Did you discuss the management of the patient with other professionals (professionals i.e. DrShayan, PA, CLINICAL DIETICIAN, lab, RT, psych nurse, social services specialist, assistant track coach, teacher, affirmative action officer, window caser)? Give summary @ -No Was smoking cessation discussed for >3mins.? @ -No Was critical care preformed (if so, how long)? @ -No Were there social determinants of health that impacted care today? How? (Homelessness, low income, unemployed, alcoholism, drug addiction, transportation, low edu. Level, literacy, decrease access to med. care, detention, rehab)? @ -No Was there de-escalation of care discussed even if they declined (Discuss DNR or withdrawal of care, Hospice)? DNR status @ -No What co-morbidities impacted this encounter? (DM, HTN, Smoking, COPD, CAD, Cancer, CVA, ARF, Chemo, Hep., AIDS, mental health diagnosis, sleep apnea, morbid obesity)? @ -DM Was patient admitted / discharged? Hospital course, mention meds given and route, prescriptions, significant lab abnormalities, going to OR and other pertinent info. @ -Patient was seen and evaluated for chest pain radiating to the throat similar to previous GERD flareups. Vitals stable, no acute distress. Physical examination is unremarkable. Patient underwent cardiac workup to rule out ACS and given GI cocktail which relieved symptoms. EKG and chest x-ray unremarkable. Lab work remarkable for glucose of 511, sodium 128, and white blood cell count of 11.5. These results are compared to last ER visit on August 20-glucose then was 472, sodium unchanged at 128. Acetone obtained and is negative. Urine remarkable for 4+ glucose and 2+ protein however negative for ketones. Patient is given 10 units of insulin IV. Glucose rechecked and hyperglycemia increased to 572. Patient started on IV fluids and given 10 units regular insulin subcutaneous. Repeat glucose 375. Hyperglycemia discussed with patient. Strict return/alarm symptoms discussed with patient in detail and she shows understanding and agrees with plan. Advised to follow-up with PCP in 1 to 3 days for reevaluation. Patient discharged in stable condition. Case discussed with Dr. Torres. Undiagnosed new problem with uncertain prognosis? @ -No Drug Therapy requiring intensive monitoring for toxicity (Heparin, Nitro, Insulin, Cardizem)? @ -Insulin Were any procedures done? @ -No Diagnosis/symptom? @ -Hyperglycemia, GERD Acute, or Chronic, or Acute on Chronic? @ -Acute Uncomplicated (without systemic symptoms) or Complicated (systemic symptoms)? @ -Uncomplicated Side effects of treatment? @ -No Exacerbation, Progression, or Severe Exacerbation? @ -No Poses a threat to life or bodily function? How? (Chest pain, [place], [place], pneumonia, PE, COPD, DKA, ARF, appy, cholecystitis, CVA, Diverticulitis, Homicidal, Suicidal, threat to staff... and all critical care pts) @ -Low likelihood - Lab Data Result diagrams: 09/08/23 19:02 09/08/23 19:02 Lab Results 09/08/23 09/08/23 09/08/23 Range/Units 19:02 19:02 19:02 WBC 11.5 H (3.8-10.6) k/uL RBC 5.51 H (3.80-5.40) m/uL Hgb 14.6 (11.4-16.0) gm/dL Hct 46.2 H (34.0-46.0) % MCV 83.8 (80.0-100.0) fL MCH 26.5 (25.0-35.0) pg MCHC 31.7 (31.0-37.0) g/dL RDW 16.8 H (11.5-15.5) % Plt Count 590 H (150-450) k/uL MPV 7.2 Neutrophils % 70 % Lymphocytes % 23 % Monocytes % 3 % Eosinophils % 2 % Basophils % 1 % Neutrophils # 8.1 H (1.3-7.7) k/uL Lymphocytes # 2.6 (1.0-4.8) k/uL Monocytes # 0.3 (0-1.0) k/uL Eosinophils # 0.3 (0-0.7) k/uL Basophils # 0.1 (0-0.2) k/uL Anisocytosis Slight PT (10.0-12.5) sec INR (<1.2) APTT (22.0-30.0) sec Sodium 128 L (137-145) mmol/L Potassium 5.1 (3.5-5.1) mmol/L Chloride 98 (98-107) mmol/L Carbon Dioxide 15 L (22-30) mmol/L Anion Gap 15 mmol/L BUN 21 H (7-17) mg/dL Creatinine 0.72 (0.52-1.04) mg/dL Est GFR (CKD-EPI)AfAm >90 (>60 ml/min/1.73 sqM) Est GFR (CKD-EPI)NonAf >90 (>60 ml/min/1.73 sqM) Glucose 511 H* (74-99) mg/dL POC Glucose (mg/dL) (70-110) mg/dL POC Glu Information Security Architect ID Calcium 9.3 (8.4-10.2) mg/dL Magnesium 1.7 (1.6-2.3) mg/dL Total Bilirubin 0.7 (0.2-1.3) mg/dL AST 33 (14-36) U/L ALT 30 (4-34) U/L Alkaline Phosphatase 185 H (38-126) U/L Troponin I (0.000-0.034) ng/mL Total Protein 7.5 (6.3-8.2) g/dL Albumin 4.0 (3.5-5.0) g/dL Urine Color Urine Appearance (Clear) Urine pH (5.0-8.0) Ur Specific [place] (1.001-1.035) Urine Protein (Negative) Urine Glucose (UA) (Negative) Urine Ketones (Negative) Urine Blood (Negative) Urine Nitrite (Negative) Urine Bilirubin (Negative) Urine Urobilinogen (<2.0) mg/dL Ur Leukocyte Esterase (Negative) Urine RBC (0-5) /hpf Urine WBC (0-5) /hpf Ur Squamous Epith Cells (0-4) /hpf Urine Mucus (None) /hpf Acetone, Qual (Negative) Influenza Type A (PCR) Not Detected (Not Detectd) Influenza Type B (PCR) Not Detected (Not Detectd) RSV (PCR) Not Detected (Not Detectd) SARS-CoV-2 (PCR) Not Detected (Not Detectd) Group A Strep (PCR) (Not Detectd) 09/08/23 09/08/23 09/08/23 Range/Units 19:02 19:02 19:02 WBC (3.8-10.6) k/uL RBC (3.80-5.40) m/uL Hgb (11.4-16.0) gm/dL Hct (34.0-46.0) % MCV (80.0-100.0) fL MCH (25.0-35.0) pg MCHC (31.0-37.0) g/dL RDW (11.5-15.5) % Plt Count (150-450) k/uL MPV Neutrophils % % Lymphocytes % % Monocytes % % Eosinophils % % Basophils % % Neutrophils # (1.3-7.7) k/uL Lymphocytes # (1.0-4.8) k/uL Monocytes # (0-1.0) k/uL Eosinophils # (0-0.7) k/uL Basophils # (0-0.2) k/uL Anisocytosis PT 9.6 L (10.0-12.5) sec INR 0.9 (<1.2) APTT 23.8 (22.0-30.0) sec Sodium (137-145) mmol/L Potassium (3.5-5.1) mmol/L Chloride (98-107) mmol/L Carbon Dioxide (22-30) mmol/L Anion Gap mmol/L BUN (7-17) mg/dL Creatinine (0.52-1.04) mg/dL Est GFR (CKD-EPI)AfAm (>60 ml/min/1.73 sqM) Est GFR (CKD-EPI)NonAf (>60 ml/min/1.73 sqM) Glucose (74-99) mg/dL POC Glucose (mg/dL) (70-110) mg/dL POC Glu Information Security Architect ID Calcium (8.4-10.2) mg/dL Magnesium (1.6-2.3) mg/dL Total Bilirubin (0.2-1.3) mg/dL AST (14-36) U/L ALT (4-34) U/L Alkaline Phosphatase (38-126) U/L Troponin I <0.012 (0.000-0.034) ng/mL Total Protein (6.3-8.2) g/dL Albumin (3.5-5.0) g/dL Urine Color Urine Appearance (Clear) Urine pH (5.0-8.0) Ur Specific [place] (1.001-1.035) Urine Protein (Negative) Urine Glucose (UA) (Negative) Urine Ketones (Negative) Urine Blood (Negative) Urine Nitrite (Negative) Urine Bilirubin (Negative) Urine Urobilinogen (<2.0) mg/dL Ur Leukocyte Esterase (Negative) Urine RBC (0-5) /hpf Urine WBC (0-5) /hpf Ur Squamous Epith Cells (0-4) /hpf Urine Mucus (None) /hpf Acetone, Qual (Negative) Influenza Type A (PCR) (Not Detectd) Influenza Type B (PCR) (Not Detectd) RSV (PCR) (Not Detectd) SARS-CoV-2 (PCR) (Not Detectd) Group A Strep (PCR) NOT DETECTED (Not Detectd) 09/08/23 09/08/23 09/08/23 Range/Units 20:05 20:15 21:18 WBC (3.8-10.6) k/uL RBC (3.80-5.40) m/uL Hgb (11.4-16.0) gm/dL Hct (34.0-46.0) % MCV (80.0-100.0) fL MCH (25.0-35.0) pg MCHC (31.0-37.0) g/dL RDW (11.5-15.5) % Plt Count (150-450) k/uL MPV Neutrophils % % Lymphocytes % % Monocytes % % Eosinophils % % Basophils % % Neutrophils # (1.3-7.7) k/uL Lymphocytes # (1.0-4.8) k/uL Monocytes # (0-1.0) k/uL Eosinophils # (0-0.7) k/uL Basophils # (0-0.2) k/uL Anisocytosis PT (10.0-12.5) sec INR (<1.2) APTT (22.0-30.0) sec Sodium (137-145) mmol/L Potassium (3.5-5.1) mmol/L Chloride (98-107) mmol/L Carbon Dioxide (22-30) mmol/L Anion Gap mmol/L BUN (7-17) mg/dL Creatinine (0.52-1.04) mg/dL Est GFR (CKD-EPI)AfAm (>60 ml/min/1.73 sqM) Est GFR (CKD-EPI)NonAf (>60 ml/min/1.73 sqM) Glucose (74-99) mg/dL POC Glucose (mg/dL) 572 H* (70-110) mg/dL POC Glu Information Security Architect ID Guerline Dumont Calcium (8.4-10.2) mg/dL Magnesium (1.6-2.3) mg/dL Total Bilirubin (0.2-1.3) mg/dL AST (14-36) U/L ALT (4-34) U/L Alkaline Phosphatase (38-126) U/L Troponin I (0.000-0.034) ng/mL Total Protein (6.3-8.2) g/dL Albumin (3.5-5.0) g/dL Urine Color Colorless Urine Appearance Clear (Clear) Urine pH 6.0 (5.0-8.0) Ur Specific [place] 1.030 (1.001-1.035) Urine Protein 2+ H (Negative) Urine Glucose (UA) 4+ H (Negative) Urine Ketones Negative (Negative) Urine Blood Negative (Negative) Urine Nitrite Negative (Negative) Urine Bilirubin Negative (Negative) Urine Urobilinogen <2.0 (<2.0) mg/dL Ur Leukocyte Esterase Negative (Negative) Urine RBC 1 (0-5) /hpf Urine WBC <1 (0-5) /hpf Ur Squamous Epith Cells 9 H (0-4) /hpf Urine Mucus Rare H (None) /hpf Acetone, Qual Negative (Negative) Influenza Type A (PCR) (Not Detectd) Influenza Type B (PCR) (Not Detectd) RSV (PCR) (Not Detectd) SARS-CoV-2 (PCR) (Not Detectd) Group A Strep (PCR) (Not Detectd) 09/08/23 Range/Units 22:52 WBC (3.8-10.6) k/uL RBC (3.80-5.40) m/uL Hgb (11.4-16.0) gm/dL Hct (34.0-46.0) % MCV (80.0-100.0) fL MCH (25.0-35.0) pg MCHC (31.0-37.0) g/dL RDW (11.5-15.5) % Plt Count (150-450) k/uL MPV Neutrophils % % Lymphocytes % % Monocytes % % Eosinophils % % Basophils % % Neutrophils # (1.3-7.7) k/uL Lymphocytes # (1.0-4.8) k/uL Monocytes # (0-1.0) k/uL Eosinophils # (0-0.7) k/uL Basophils # (0-0.2) k/uL Anisocytosis PT (10.0-12.5) sec INR (<1.2) APTT (22.0-30.0) sec Sodium (137-145) mmol/L Potassium (3.5-5.1) mmol/L Chloride (98-107) mmol/L Carbon Dioxide (22-30) mmol/L Anion Gap mmol/L BUN (7-17) mg/dL Creatinine (0.52-1.04) mg/dL Est GFR (CKD-EPI)AfAm (>60 ml/min/1.73 sqM) Est GFR (CKD-EPI)NonAf (>60 ml/min/1.73 sqM) Glucose (74-99) mg/dL POC Glucose (mg/dL) 549 H* (70-110) mg/dL POC Glu Information Security Architect ID Ashlee Meyers Calcium (8.4-10.2) mg/dL Magnesium (1.6-2.3) mg/dL Total Bilirubin (0.2-1.3) mg/dL AST (14-36) U/L ALT (4-34) U/L Alkaline Phosphatase (38-126) U/L Troponin I (0.000-0.034) ng/mL Total Protein (6.3-8.2) g/dL Albumin (3.5-5.0) g/dL Urine Color Urine Appearance (Clear) Urine pH (5.0-8.0) Ur Specific [place] (1.001-1.035) Urine Protein (Negative) Urine Glucose (UA) (Negative) Urine Ketones (Negative) Urine Blood (Negative) Urine Nitrite (Negative) Urine Bilirubin (Negative) Urine Urobilinogen (<2.0) mg/dL Ur Leukocyte Esterase (Negative) Urine RBC (0-5) /hpf Urine WBC (0-5) /hpf Ur Squamous Epith Cells (0-4) /hpf Urine Mucus (None) /hpf Acetone, Qual (Negative) Influenza Type A (PCR) (Not Detectd) Influenza Type B (PCR) (Not Detectd) RSV (PCR) (Not Detectd) SARS-CoV-2 (PCR) (Not Detectd) Group A Strep (PCR) (Not Detectd) Disposition Clinical Impression: Hyperglycemia, GERD (gastroesophageal reflux disease) Disposition: HOME SELF-CARE Condition: Stable Instructions (If sedation given, give patient instructions): GERD (Gastroesophageal Reflux Disease) (ED), Diabetic Hyperglycemia (ED) Additional Instructions: Please follow-up with PCP in 1 to 3 days for reevaluation. Please return to the Emergency Department if symptoms worsen or any other concerns. Is patient prescribed a controlled substance at d/c from ED?: No Referrals: Guillermo Cerda MD [Primary Care Provider] - 1-2 days Time of Disposition: 23:45
[2023-09-08 19:17] LABS: Anisocytosis Slight; Basophils # (A) 0.1 k/uL (0-0.2); Basophils % (A) 1 %; Eosinophils # (A) 0.3 k/uL (0-0.7); Eosinophils % (A) 2 %; HCT 46.2 % (34.0-46.0); HGB 14.6 gm/dL (11.4-16.0); Lymphocytes # (A) 2.6 k/uL (1.0-4.8); Lymphocytes % (A) 23 %; MCH 26.5 pg (25.0-35.0); MCHC 31.7 g/dL (31.0-37.0); MCV 83.8 fL (80.0-100.0); Mean Platelet Volume 7.2; Monocytes # (A) 0.3 k/uL (0-1.0); Monocytes % (A) 3 %; Neutrophils # (A) 8.1 k/uL (1.3-7.7); Neutrophils % (A) 70 %; Platelet Count 590 k/uL (150-450); RBC 5.51 m/uL (3.80-5.40); RDW 16.8 % (11.5-15.5); WBC 11.5 k/uL (3.8-10.6)
[2023-09-08 19:30] LABS: INR 0.9 (<1.2); Partial Thromboplastin Time 23.8 sec (22.0-30.0); Prothrombin Time 9.6 sec (10.0-12.5)
[2023-09-08 19:32] LABS: ALT 30 U/L (4-34); AST 33 U/L (14-36); African American GFR (CKD) >90 (>60 ml/min/1.73 sqM); Alkaline Phosphatase 185 U/L (38-126); Anion Gap 15 mmol/L; Blood Urea Nitrogen 21 mg/dL (7-17); Calcium 9.3 mg/dL (8.4-10.2); Carbon Dioxide 15 mmol/L (22-30); Chloride 98 mmol/L (98-107); Magnesium 1.7 mg/dL (1.6-2.3); Non-African American GFR(CKD) >90 (>60 ml/min/1.73 sqM); Potassium 5.1 mmol/L (3.5-5.1); Sodium 128 mmol/L (137-145); Total Bilirubin 0.7 mg/dL (0.2-1.3); Total Protein 7.5 g/dL (6.3-8.2)
[2023-09-08 19:37] LABS: Glucose 511 mg/dL (74-99)
[2023-09-08] MEDS: MAG HYDROX/AL HYDROX/SIMETH 30 ML CUP PO PRN (19:50)
[2023-09-08] MEDS: PANTOPRAZOLE 40 MG/10 ML VIAL IVP STA (19:50)
[2023-09-08] MEDS: FAMOTIDINE 20 MG TAB PO STA (19:51)
[2023-09-08] MEDS: ONDANSETRON 4 MG/2 ML VIAL IVP STA (19:52)
--- NOTE | 2023-09-08 20:02 | XR ---
EXAMINATION TYPE: XR chest 2V DATE OF EXAM: 09/08/2023 COMPARISON: 07/07/2023 INDICATION: Cough TECHNIQUE: Frontal and lateral views of the chest are obtained. FINDINGS: The heart size is normal. The pulmonary vasculature is normal. The lungs are clear. IMPRESSION: 1. No acute pulmonary process.
[2023-09-08] MEDS: INSULIN REGULAR 100 UNIT/ML VIAL (IV) IV ONE (20:32)
[2023-09-08 21:01] LABS: Appearance,Urine Clear (Clear); Bilirubin,Urine Negative (Negative); Blood,Urine Negative (Negative); Color,Urine Colorless; Glucose,Urine (UA) 4+ (Negative); Ketones,Urine Negative (Negative); Leukocyte Esterase,Urine Negative (Negative); Mucus,Urine Rare /hpf; Nitrite,Urine Negative (Negative); Protein,Urine 2+ (Negative); RBC,Urine 1 /hpf (0-5); Squamous Epithelial Cell,Urine 9 /hpf (0-4); Urobilinogen,Urine <2.0 mg/dL (<2.0); WBC,Urine <1 /hpf (0-5)
[2023-09-08 21:20] LABS: Glucose,Whole Blood 572 mg/dL (70-110)
[2023-09-08] MEDS: SODIUM CHLORIDE 0.9% 1,000 ML IV STA (22:19)
[2023-09-08] MEDS: INSULIN REGULAR 100 UNIT/ML VIAL (IM/SQ) SQ ONE (22:20)
[2023-09-08 23:00] LABS: Glucose,Whole Blood 549 mg/dL (70-110)
[2023-09-08 23:42] LABS: Glucose,Whole Blood 375 mg/dL (70-110)
[2023-09-08 23:54] VITALS: BP 137/75; PULSE 65
== END 2023-09-09 00:01 | disposition home or self-care (01) ==
LOC: EC 17:16
DX: K21.9 Gastro-esophageal reflux disease without esophagitis (principal); E11.65 Type 2 diabetes mellitus with hyperglycemia; I10 Essential (primary) hypertension; F17.290 Nicotine dependence, other tobacco product, uncomplicated; Z88.1 Allergy status to other antibiotic agents; Z79.4 Long term (current) use of insulin; Z79.899 Other long term (current) drug therapy; Z11.52 Encounter for screening for COVID-19
CPT/HCPCS: 99284; 96374; 96375; 96361; 36415; 93005; 87651; 80053; 82009; 83735; 84484; 85025; 85610; 85730; 81001; 87636; 71046; J2405; C9113

== ENCOUNTER 2023-09-20 12:49 | Emergency (ER) | payer MEDICARE ==
[2023-09-20 13:18] VITALS: BP 98/64; PULSE 78; RESP 16; TEMP 98.3
[2023-09-20 14:48] LABS: Anisocytosis Slight; Basophils # (A) 0.1 k/uL (0-0.2); Basophils % (A) 1 %; Eosinophils # (A) 0.2 k/uL (0-0.7); Eosinophils % (A) 2 %; HCT 45.1 % (34.0-46.0); HGB 14.8 gm/dL (11.4-16.0); Lymphocytes # (A) 2.4 k/uL (1.0-4.8); Lymphocytes % (A) 22 %; MCH 27.4 pg (25.0-35.0); MCHC 32.7 g/dL (31.0-37.0); MCV 83.8 fL (80.0-100.0); Mean Platelet Volume 7.1; Microcytosis Slight; Monocytes # (A) 0.5 k/uL (0-1.0); Monocytes % (A) 5 %; Neutrophils # (A) 7.7 k/uL (1.3-7.7); Neutrophils % (A) 70 %; Platelet Count 573 k/uL (150-450); RBC 5.39 m/uL (3.80-5.40)
[2023-09-20 15:04] LABS: Appearance,Urine Cloudy (Clear); Bacteria,Urine Rare /hpf; Bilirubin,Urine Negative (Negative); Blood,Urine Negative (Negative); Color,Urine Yellow; Glucose,Urine (UA) Trace (Negative); Hyaline Casts,Urine 5 /lpf (0-2); Ketones,Urine Negative (Negative); Leukocyte Esterase,Urine Moderate (Negative); Mucus,Urine Rare /hpf; Nitrite,Urine Negative (Negative); PH, Urine 5.5 (5.0-8.0); Protein,Urine 2+ (Negative); RBC,Urine 3 /hpf (0-5); Specific Gravity,Urine 1.018 (1.001-1.035); Squamous Epithelial Cell,Urine 12 /hpf (0-4); Urobilinogen,Urine <2.0 mg/dL (<2.0); WBC,Urine 5 /hpf (0-5)
[2023-09-20 15:10] LABS: Anion Gap 13 mmol/L; Carbon Dioxide 18 mmol/L (22-30); Chloride 104 mmol/L (98-107); Glucose 186 mg/dL (74-99); Potassium 3.7 mmol/L (3.5-5.1); Sodium 135 mmol/L (137-145)
[2023-09-20 15:11] LABS: ALT 25 U/L (4-34); AST 33 U/L (14-36); African American GFR (CKD) 70 (>60 ml/min/1.73 sqM); Albumin 3.8 g/dL (3.5-5.0); Alkaline Phosphatase 158 U/L (38-126); Blood Urea Nitrogen 23 mg/dL (7-17); Calcium 8.8 mg/dL (8.4-10.2); Non-African American GFR(CKD) 61 (>60 ml/min/1.73 sqM); Total Bilirubin 0.6 mg/dL (0.2-1.3); Total Protein 6.8 g/dL (6.3-8.2)
--- NOTE | 2023-09-20 16:34 | ED ---
Dizziness HPI - General Chief Complaint: Dizziness Stated Complaint: Dizziness Time Seen by Provider: 09/20/23 15:18 Source: patient, RN notes reviewed, old records reviewed Mode of arrival: EMS Limitations: no limitations - History of Present Illness Initial Comments: This is a 53-year-old female here for evaluation she presents today for evaluation of some neck pain patient was also complaining some dizziness and lightheadedness. States that the neck pain and back pain are chronic issues but a little bit worse than normal, she was concerned her blood sugar was elevated as it normally has been increasing lately. She has no fevers no nausea vomiting or diarrhea currently. No recent trauma. MD Complaint: dizziness, lightheadedness, other (Neck pain) -: days(s) Timing: sudden onset, gradual onset Description: sense of movement, lightheadedness History of Same: Yes History of Trauma: No Severity: mild Improves With: nothing Worsens With: nothing Associated Symptoms: denies other symptoms - Related Data Home Medications Medication Instructions Recorded Confirmed Atorvastatin [Lipitor] 80 mg PO HS 06/25/19 07/30/23 lisinopriL 40 mg PO DAILY 09/24/20 07/30/23 traZODone HCL 50 mg PO HS PRN 01/11/21 07/30/23 Ergocalciferol (Vitamin D2) 1,250 mcg PO TU 03/03/21 07/30/23 [Drisdol (50,000 Iu)] Esomeprazole Magnesium [NexIUM] 20 mg PO DAILY 01/30/22 07/30/23 INSULIN ASPART (NovoLOG) [NovoLOG 20 unit SQ AC-TID 11/26/22 07/30/23 (formulary)] Albuterol Inhaler [Ventolin Hfa 2 puff INHALATION RT-QID 03/01/23 07/30/23 Inhaler] Insulin Glargine,Hum.rec.anlog 30 units SQ HS 07/30/23 07/30/23 [Lantus Solostar Pen] Previous Rx's Medication Instructions Recorded amLODIPine [Norvasc] 10 mg PO DAILY #30 tab 03/11/23 hydrALAZINE HCL [Apresoline] 25 mg PO BID #60 tab 03/11/23 Acetaminophen Tab [Tylenol] 650 mg PO Q6H #30 tab 05/15/23 Ibuprofen [Motrin] 600 mg PO Q8HR PRN #30 tab 05/15/23 Cephalexin [Keflex] 500 mg PO QID #30 cap 08/01/23 Allergies Allergy/AdvReac Type Severity Reaction Status Date / Time levofloxacin [From Levaquin] Allergy Rash/Hives Verified 09/08/23 17:45 Review of Systems ROS Statement: Those systems with pertinent positive or pertinent negative responses have been documented in the HPI. ROS Other: All systems not noted in ROS Statement are negative. Past Medical History Past Medical History: Diabetes Mellitus, GERD/Reflux, Hyperlipidemia, Hypertension, Syncope Additional Past Medical History / Comment(s): Pt recently admitted to [facility] on 07/21/21 with uncontrolled IDDM and hyperkalemia. Other hx: Recurrent pancreatitis, hypertriglyceridemia, elevated lipase, IDDM type II, UTI, chronic low back pain, bulging discs, dental abscesses in past. History of Any Multi-Drug Resistant Organisms: MRSA Date of last positivie culture/infection: 03/01/23 MDRO Source:: Abdomen Past Surgical History: Tubal Ligation Additional Past Surgical History / Comment(s): Age 7 had VSD repair, tumor removal 03/2023 Past Anesthesia/Blood Transfusion Reactions: No Reported Reaction Past Psychological History: No Psychological Hx Reported Smoking Status: Former smoker, Second hand smoke exposure, Vaper Past Alcohol Use History: None Reported Past Drug Use History: None Reported - Past Family History Mother Family Medical History: No Reported History Additional Family Medical History / Comment(s): Mother was healthy. She is , pt cannot recall cause of . Father Family Medical History: Pneumonia Additional Family Medical History / Comment(s): Father at the age of 67yrs from pneumonia General Exam Limitations: no limitations General appearance: alert, in no apparent distress Head exam: Present: atraumatic, normocephalic, normal inspection Eye exam: Present: normal appearance, PERRL, EOMI. Absent: scleral icterus, conjunctival injection, periorbital swelling ENT exam: Present: normal exam, mucous membranes moist Neck exam: Present: normal inspection. Absent: tenderness, meningismus, lymphadenopathy Respiratory exam: Present: normal lung sounds bilaterally. Absent: respiratory distress, wheezes, rales, rhonchi, stridor Cardiovascular Exam: Present: regular rate, normal rhythm, normal heart sounds. Absent: systolic murmur, diastolic murmur, rubs, gallop, clicks GI/Abdominal exam: Present: soft, normal bowel sounds. Absent: distended, tenderness, guarding, rebound, rigid Extremities exam: Present: normal inspection, full ROM, normal capillary refill. Absent: tenderness, pedal edema, joint swelling, calf tenderness Back exam: Present: normal inspection Neurological exam: Present: alert, oriented X3, CN II-XII intact Psychiatric exam: Present: normal affect, normal mood Skin exam: Present: warm, dry, intact, normal color. Absent: rash Course Vital Signs 09/20/23 13:15 Temperature 98.3 F Pulse Rate 78 Respiratory 16 Rate Blood Pressure 98/64 O2 Sat by Pulse 95 Oximetry - Reevaluation(s) Reevaluation #1: 09/20/23 16:55 Medical records reviewed Reevaluation #2: 09/20/23 16:55 Patient symptoms unchanged Reevaluation #3: 09/20/23 16:55 Patient informed of results questions answered Reevaluation #4: 09/20/23 16:55 Was pt. sent in by a medical professional or institution (, PA, AUTOMOBILE GLASS TECHNICIAN, urgent care, hospital, or retirement...) When possible be specific @ -no Did you speak to anyone other than the patient for history (EMS, parent, family, police, friend...)? What history was obtained from this source @ -no Did you review nursing and triage notes (agree or disagree)? Why? @ -agree Are old charts reviewed (outside hosp., previous admission, EMS record, old EKG, old radiological studies, urgent care reports/EKG's, retirement records)? Report findings @ -yes Differential Diagnosis (chest pain, altered mental status, abdominal pain women, abdominal pain men, vaginal bleeding, weakness, fever, dyspnea, syncope, headache, dizziness, GI bleed, back pain, seizure, CVA, palpatations, mental health, musculoskeletal)? @ -prior EKG interpreted by me (3pts min.). @ -yes X-rays interpreted by me (1pt min.). @ -no CT interpreted by me (1pt min.). @ -no U/S interpreted by me (1pt. min.). @ -no What testing was considered but not performed or refused? (CT, X-rays, U/S, labs)? Why? @ -none What meds were considered but not given or refused? Why? @ -none Did you discuss the management of the patient with other professionals (professionals i.e. , PA, AUTOMOBILE GLASS TECHNICIAN, lab, RT, psych nurse, social science instructor, commissioned defence force officer, teacher, botanical technical officer, oil field caser)? Give summary @ -no Was smoking cessation discussed for >3mins.? @ -no Was critical care preformed (if so, how long)? @ -no Were there social determinants of health that impacted care today? How? (Homelessness, low income, unemployed, alcoholism, drug addiction, transportation, low edu. Level, literacy, decrease access to med. care, assisted, rehab)? @ -none Was there de-escalation of care discussed even if they declined (Discuss DNR or withdrawal of care, Hospice)? DNR status @ -no What co-morbidities impacted this encounter? (DM, HTN, Smoking, COPD, CAD, Cancer, CVA, ARF, Chemo, Hep., AIDS, mental health diagnosis, sleep apnea, morbid obesity)? @ -none Was patient admitted / discharged? Hospital course, mention meds given and route, prescriptions, significant lab abnormalities, going to OR and other pertinent info. @ - 53-year-old female to the ER for evaluation of dizziness here in the emergency department. Patient also complaining of some neck pain and concern for elevated blood sugar. Patient has no significant abnormality found on her lab testing here in the ER feels well and can be discharged home, patient is able to ambulate without ataxia Discharged Undiagnosed new problem with uncertain prognosis? @ -no Drug Therapy requiring intensive monitoring for toxicity (Heparin, Nitro, Insulin, Cardizem)? @ -no Were any procedures done? @ -no Diagnosis/symptom? @ -Dizziness Acute, or Chronic, or Acute on Chronic? @ -Acute Uncomplicated (without systemic symptoms) or Complicated (systemic symptoms)? @ -Complicated Side effects of treatment? @ -no Exacerbation, Progression, or Severe Exacerbation? @ -exacerbation Poses a threat to life or bodily function? How? (Chest pain, [place], [place], pneumonia, PE, COPD, DKA, ARF, appy, cholecystitis, CVA, Diverticulitis, Homicidal, Suicidal, threat to staff... and all critical care pts) @ -no Reevaluation #5: Differential Dizziness: Benign paroxysmal positional Vertigo, Menieres disease, otitis media, acoustic neuroma, vertebrobasilar insufficiency, cerebellar stroke, encephalitis, hypovolemic, arrhythmia, coronary artery syndrome, anemia, this is not meant to be an all-inclusive list EKG Findings - EKG Comments: EKG Findings:: EKG is rate 77 NC 145 QRS 93 QTc 414 - EKG Results: EKG: interpreted by [facility] Medical Decision Making - Medical Decision Making 53-year-old female to the ER for evaluation of dizziness here in the emergency department. Patient also complaining of some neck pain and concern for elevated blood sugar. Patient has no significant abnormality found on her lab testing here in the ER feels well and can be discharged home, patient is able to ambulate without ataxia - Lab Data Result diagrams: 09/20/23 14:07 09/20/23 14:07 Lab Results 09/20/23 09/20/23 09/20/23 Range/Units 14:07 14:07 14:07 WBC 11.0 H (3.8-10.6) k/uL RBC 5.39 (3.80-5.40) m/uL Hgb 14.8 (11.4-16.0) gm/dL Hct 45.1 (34.0-46.0) % MCV 83.8 (80.0-100.0) fL MCH 27.4 (25.0-35.0) pg MCHC 32.7 (31.0-37.0) g/dL RDW 17.0 H (11.5-15.5) % Plt Count 573 H (150-450) k/uL MPV 7.1 Neutrophils % 70 % Lymphocytes % 22 % Monocytes % 5 % Eosinophils % 2 % Basophils % 1 % Neutrophils # 7.7 (1.3-7.7) k/uL Lymphocytes # 2.4 (1.0-4.8) k/uL Monocytes # 0.5 (0-1.0) k/uL Eosinophils # 0.2 (0-0.7) k/uL Basophils # 0.1 (0-0.2) k/uL Anisocytosis Slight Microcytosis Slight Sodium 135 L (137-145) mmol/L Potassium 3.7 (3.5-5.1) mmol/L Chloride 104 (98-107) mmol/L Carbon Dioxide 18 L (22-30) mmol/L Anion Gap 13 mmol/L BUN 23 H (7-17) mg/dL Creatinine 1.07 H (0.52-1.04) mg/dL Est GFR (CKD-EPI)AfAm 70 (>60 ml/min/1.73 sqM) Est GFR (CKD-EPI)NonAf 61 (>60 ml/min/1.73 sqM) Glucose 186 H (74-99) mg/dL Calcium 8.8 (8.4-10.2) mg/dL Total Bilirubin 0.6 (0.2-1.3) mg/dL AST 33 (14-36) U/L ALT 25 (4-34) U/L Alkaline Phosphatase 158 H (38-126) U/L Troponin I (0.000-0.034) ng/mL Total Protein 6.8 (6.3-8.2) g/dL Albumin 3.8 (3.5-5.0) g/dL Urine Color Yellow Urine Appearance Cloudy H (Clear) Urine pH 5.5 (5.0-8.0) Ur Specific [place] 1.018 (1.001-1.035) Urine Protein 2+ H (Negative) Urine Glucose (UA) Trace H (Negative) Urine Ketones Negative (Negative) Urine Blood Negative (Negative) Urine Nitrite Negative (Negative) Urine Bilirubin Negative (Negative) Urine Urobilinogen <2.0 (<2.0) mg/dL Ur Leukocyte Esterase Moderate H (Negative) Urine RBC 3 (0-5) /hpf Urine WBC 5 (0-5) /hpf Ur Squamous Epith Cells 12 H (0-4) /hpf Urine Bacteria Rare H (None) /hpf Hyaline Casts 5 H (0-2) /lpf Urine Mucus Rare H (None) /hpf 09/20/23 Range/Units 14:07 WBC (3.8-10.6) k/uL RBC (3.80-5.40) m/uL Hgb (11.4-16.0) gm/dL Hct (34.0-46.0) % MCV (80.0-100.0) fL MCH (25.0-35.0) pg MCHC (31.0-37.0) g/dL RDW (11.5-15.5) % Plt Count (150-450) k/uL MPV Neutrophils % % Lymphocytes % % Monocytes % % Eosinophils % % Basophils % % Neutrophils # (1.3-7.7) k/uL Lymphocytes # (1.0-4.8) k/uL Monocytes # (0-1.0) k/uL Eosinophils # (0-0.7) k/uL Basophils # (0-0.2) k/uL Anisocytosis Microcytosis Sodium (137-145) mmol/L Potassium (3.5-5.1) mmol/L Chloride (98-107) mmol/L Carbon Dioxide (22-30) mmol/L Anion Gap mmol/L BUN (7-17) mg/dL Creatinine (0.52-1.04) mg/dL Est GFR (CKD-EPI)AfAm (>60 ml/min/1.73 sqM) Est GFR (CKD-EPI)NonAf (>60 ml/min/1.73 sqM) Glucose (74-99) mg/dL Calcium (8.4-10.2) mg/dL Total Bilirubin (0.2-1.3) mg/dL AST (14-36) U/L ALT (4-34) U/L Alkaline Phosphatase (38-126) U/L Troponin I <0.012 (0.000-0.034) ng/mL Total Protein (6.3-8.2) g/dL Albumin (3.5-5.0) g/dL Urine Color Urine Appearance (Clear) Urine pH (5.0-8.0) Ur Specific [place] (1.001-1.035) Urine Protein (Negative) Urine Glucose (UA) (Negative) Urine Ketones (Negative) Urine Blood (Negative) Urine Nitrite (Negative) Urine Bilirubin (Negative) Urine Urobilinogen (<2.0) mg/dL Ur Leukocyte Esterase (Negative) Urine RBC (0-5) /hpf Urine WBC (0-5) /hpf Ur Squamous Epith Cells (0-4) /hpf Urine Bacteria (None) /hpf Hyaline Casts (0-2) /lpf Urine Mucus (None) /hpf - EKG Data -: EKG Interpreted by Me (EKG is rate 77 NC 145 QRS 93 QTc 414) Disposition Clinical Impression: Uncontrolled type 2 diabetes mellitus, Dizziness Disposition: HOME SELF-CARE Condition: Good Instructions (If sedation given, give patient instructions): Dizziness (ED) Is patient prescribed a controlled substance at d/c from ED?: No Referrals: Guillermo Cerda MD [Primary Care Provider] - 1-2 days Time of Disposition: 17:00
[2023-09-20] MEDS: KETOROLAC 15 MG/ML 1 ML VIAL IVP STA (17:22)
[2023-09-20] MEDS: SODIUM CHLORIDE 0.9% 1,000 ML IV STA (17:22)
[2023-09-20] MEDS: SODIUM CHLORIDE 0.9% 500 ML 500 ML IV STA (17:22)
[2023-09-20] MEDS: HYDROmorphone 0.5 MG/0.5 ML SYRINGE IVP STA (17:23)
== END 2023-09-20 19:45 | disposition home or self-care (01) ==
LOC: EC 12:49
DX: E11.65 Type 2 diabetes mellitus with hyperglycemia (principal); R42 Dizziness and giddiness; Z79.4 Long term (current) use of insulin; Z88.1 Allergy status to other antibiotic agents; F17.290 Nicotine dependence, other tobacco product, uncomplicated
CPT/HCPCS: 36415; 93005; 80053; 84484; 85025; 81001; 99284; 96374; 96375; 96361 ×2; J1885; J1170

== ENCOUNTER 2023-10-01 16:33 | Emergency (ER) | payer MEDICARE ==
[2023-10-01 16:37] VITALS: BP 166/79; PULSE 73; RESP 18; TEMP 99
[2023-10-01] MEDS: MORPHINE SULFATE 4 MG/ML SYRINGE IVP STA ×2 (17:56→20:14)
[2023-10-01] MEDS: SODIUM CHLORIDE 0.9% 1,000 ML IV STA (17:56)
[2023-10-01 18:26] LABS: Anisocytosis Slight; Basophils # (A) 0.1 k/uL (0-0.2); Basophils % (A) 1 %; Eosinophils # (A) 0.2 k/uL (0-0.7); Eosinophils % (A) 3 %; HGB 13.1 gm/dL (11.4-16.0); Lymphocytes # (A) 2.2 k/uL (1.0-4.8); Lymphocytes % (A) 28 %; MCH 26.4 pg (25.0-35.0); MCHC 30.5 g/dL (31.0-37.0); MCV 86.5 fL (80.0-100.0); Mean Platelet Volume 8.2; Monocytes # (A) 0.5 k/uL (0-1.0); Monocytes % (A) 6 %; Neutrophils # (A) 4.9 k/uL (1.3-7.7); Neutrophils % (A) 61 %; Platelet Count 454 k/uL (150-450); RBC 4.98 m/uL (3.80-5.40); RDW 16.8 % (11.5-15.5)
[2023-10-01 18:39] LABS: Appearance,Urine Clear (Clear); Bacteria,Urine Rare /hpf; Bilirubin,Urine Negative (Negative); Blood,Urine Negative (Negative); Color,Urine Colorless; Glucose,Urine (UA) 3+ (Negative); Ketones,Urine Negative (Negative); Leukocyte Esterase,Urine Negative (Negative); Mucus,Urine Rare /hpf; Nitrite,Urine Negative (Negative); PH, Urine 5.5 (5.0-8.0); Protein,Urine 1+ (Negative); Specific Gravity,Urine 1.018 (1.001-1.035); Squamous Epithelial Cell,Urine 4 /hpf (0-4); Urobilinogen,Urine <2.0 mg/dL (<2.0); WBC,Urine 2 /hpf (0-5)
[2023-10-01 18:42] LABS: African American GFR (CKD) >90 (>60 ml/min/1.73 sqM); Anion Gap 8 mmol/L; Blood Urea Nitrogen 20 mg/dL (7-17); Calcium 8.9 mg/dL (8.4-10.2); Carbon Dioxide 25 mmol/L (22-30); Chloride 101 mmol/L (98-107); Glucose 358 mg/dL (74-99); Lipase 176 U/L (23-300); Non-African American GFR(CKD) 85 (>60 ml/min/1.73 sqM); Sodium 134 mmol/L (137-145); Total Protein 7.2 g/dL (6.3-8.2)
[2023-10-01 18:56] LABS: ALT 24 U/L (4-34); Alkaline Phosphatase 103 U/L (38-126); Potassium 5.7 mmol/L (3.5-5.1); Total Bilirubin 0.8 mg/dL (0.2-1.3)
--- NOTE | 2023-10-01 19:02 | XR ---
EXAMINATION TYPE: XR KUB DATE OF EXAM: 10/01/2023 6:14 PM CLINICAL INDICATION:Female, 53 years old with history of abdominal pain; COMPARISON: None. TECHNIQUE: One radiographic view of the abdomen was obtained. FINDINGS: The bowel gas pattern is nonspecific without dilated loops of small or large bowel. There i s no evidence for organomegaly or pneumoperitoneum. The osseous structures are intact. No abnormal calcifications are present. Fecal material and gas are demonstrated throughout the colon and rectum. Bilateral tubal ligation clips. Multilevel degeneration changes of the spine with mild scoliosis. IMPRESSION: Nonspecific bowel gas pattern without radiographic evidence for acute process.
[2023-10-01 19:13] LABS: AST 46 U/L (14-36)
--- NOTE | 2023-10-01 19:51 | ED ---
Abdominal Pain HPI - General Chief Complaint: Abdominal Pain Stated Complaint: Abd/Back Pain,Dizziness Time Seen by Provider: 10/01/23 16:35 Source: patient Mode of arrival: ambulatory Limitations: no limitations - History of Present Illness Initial Comments: 53-year-old female well-known to the emergency department presents today for not feeling well. States that she has generalized abdominal discomfort with nausea. Reports that the symptoms are making her feel lightheaded. She denies vomiting. No changes in her bowel or bladder habits. No fevers. Patient did not attempt to take any medications at home for her symptoms. Patient does have diabetes with poorly controlled glucose levels. No history of DKA. No history of bowel obstruction. She denies any vaginal bleeding or discharge. No other alleviating, precipitating or modifying factors - Related Data Home Medications Medication Instructions Recorded Confirmed Atorvastatin [Lipitor] 80 mg PO HS 06/25/19 07/30/23 lisinopriL 40 mg PO DAILY 09/24/20 07/30/23 traZODone HCL 50 mg PO HS PRN 01/11/21 07/30/23 Ergocalciferol (Vitamin D2) 1,250 mcg PO TU 03/03/21 07/30/23 [Drisdol (50,000 Iu)] Esomeprazole Magnesium [NexIUM] 20 mg PO DAILY 01/30/22 07/30/23 INSULIN ASPART (NovoLOG) [NovoLOG 20 unit SQ AC-TID 11/26/22 07/30/23 (formulary)] Albuterol Inhaler [Ventolin Hfa 2 puff INHALATION RT-QID 03/01/23 07/30/23 Inhaler] Insulin Glargine,Hum.rec.anlog 30 units SQ HS 07/30/23 07/30/23 [Lantus Solostar Pen] Previous Rx's Medication Instructions Recorded amLODIPine [Norvasc] 10 mg PO DAILY #30 tab 03/11/23 hydrALAZINE HCL [Apresoline] 25 mg PO BID #60 tab 03/11/23 Acetaminophen Tab [Tylenol] 650 mg PO Q6H #30 tab 05/15/23 Ibuprofen [Motrin] 600 mg PO Q8HR PRN #30 tab 05/15/23 Cephalexin [Keflex] 500 mg PO QID #30 cap 08/01/23 Allergies Allergy/AdvReac Type Severity Reaction Status Date / Time levofloxacin [From Levaquin] Allergy Rash/Hives Verified 10/01/23 16:36 Review of Systems ROS Statement: Those systems with pertinent positive or pertinent negative responses have been documented in the HPI. ROS Other: All systems not noted in ROS Statement are negative. Past Medical History Past Medical History: Diabetes Mellitus, GERD/Reflux, Hyperlipidemia, Hypertension, Syncope Additional Past Medical History / Comment(s): Pt recently admitted to [facility] on 07/21/21 with uncontrolled IDDM and hyperkalemia. Other hx: Recurrent pancreatitis, hypertriglyceridemia, elevated lipase, IDDM type II, UTI, chronic low back pain, bulging discs, dental abscesses in past. History of Any Multi-Drug Resistant Organisms: MRSA Date of last positivie culture/infection: 03/01/23 MDRO Source:: Abdomen Past Surgical History: Tubal Ligation Additional Past Surgical History / Comment(s): Age 7 had VSD repair, tumor removal 03/2023 Past Anesthesia/Blood Transfusion Reactions: No Reported Reaction Past Psychological History: No Psychological Hx Reported Smoking Status: Former smoker, Second hand smoke exposure, Vaper Past Alcohol Use History: None Reported Past Drug Use History: None Reported - Past Family History Mother Family Medical History: No Reported History Additional Family Medical History / Comment(s): Mother was healthy. She is , pt cannot recall cause of . Father Family Medical History: Pneumonia Additional Family Medical History / Comment(s): Father at the age of 67yrs from pneumonia General Exam Limitations: no limitations General appearance: alert, in no apparent distress Head exam: Present: atraumatic, normocephalic, normal inspection Eye exam: Present: normal appearance, PERRL, EOMI. Absent: scleral icterus, conjunctival injection, periorbital swelling ENT exam: Present: normal exam, mucous membranes moist Neck exam: Present: normal inspection. Absent: tenderness, meningismus, lymphadenopathy Respiratory exam: Present: normal lung sounds bilaterally. Absent: respiratory distress, wheezes, rales, rhonchi, stridor Cardiovascular Exam: Present: regular rate, normal rhythm, normal heart sounds. Absent: systolic murmur, diastolic murmur, rubs, gallop, clicks GI/Abdominal exam: Present: soft, tenderness (Generalized), normal bowel sounds. Absent: distended, guarding, rebound, rigid Extremities exam: Present: normal inspection, full ROM, normal capillary refill. Absent: tenderness, pedal edema, joint swelling, calf tenderness Back exam: Present: normal inspection Neurological exam: Present: alert, oriented X3, CN II-XII intact Psychiatric exam: Present: normal affect, normal mood Skin exam: Present: warm, dry, intact, normal color. Absent: rash Course Vital Signs 10/01/23 16:34 Temperature 99 F Pulse Rate 73 Respiratory 18 Rate Blood Pressure 166/79 O2 Sat by Pulse 96 Oximetry Medical Decision Making - Medical Decision Making Was pt. sent in by a medical professional or institution (, PA, UPHOLSTERED GOODS CRAFTER, urgent care, hospital, or prison...) When possible be specific @ -No Did you speak to anyone other than the patient for history (EMS, parent, family, police, friend...)? What history was obtained from this source @ -No Did you review nursing and triage notes (agree or disagree)? Why? @ -I reviewed and agree with nursing and triage notes Were old charts reviewed (outside hosp., previous admission, EMS record, old EKG, old radiological studies, urgent care reports/EKG's, prison records)? Report findings @ -No old charts were reviewed Differential Diagnosis (chest pain, altered mental status, abdominal pain women, abdominal pain men, vaginal bleeding, weakness, fever, dyspnea, syncope, headache, dizziness, GI bleed, back pain, seizure, CVA, palpatations, mental health, musculoskeletal)? @ -Differential Abdominal Pain Women: Appendicitis, Cholecystitis, diverticulosis, ischemic bowel, pancreatitis, hepatitis, UTI, gastroenteritis, AAA, incarcerated hernia, bowel obstruction, constipation, inflammatory bowel, hepatitis, peptic ulcer disease, splenic infarction, perforated viscus, vulvitis, ovarian torsion, PID, kidney stone, placenta abruption, this is not meant to be an all-inclusive list EKG interpreted by me (3pts min.). @ -Not done X-rays interpreted by me (1pt min.). @ -Yes and demonstrates no bowel obstruction CT interpreted by me (1pt min.). @ -None done U/S interpreted by me (1pt. min.). @ -None done What testing was considered but not performed or refused? (CT, X-rays, U/S, labs)? Why? @ -None What meds were considered but not given or refused? Why? @ -None Did you discuss the management of the patient with other professionals (professionals i.e. , PA, UPHOLSTERED GOODS CRAFTER, lab, RT, psych nurse, school social worker, mri assistant, teacher, correctional officer lieutenant, case work aide)? Give summary @ -No Was smoking cessation discussed for >3mins.? @ -No Was critical care preformed (if so, how long)? @ -No Were there social determinants of health that impacted care today? How? (Homelessness, low income, unemployed, alcoholism, drug addiction, transportation, low edu. Level, literacy, decrease access to med. care, assisted, rehab)? @ -No Was there de-escalation of care discussed even if they declined (Discuss DNR or withdrawal of care, Hospice)? DNR status @ -No What co-morbidities impacted this encounter? (DM, HTN, Smoking, COPD, CAD, Cancer, CVA, ARF, Chemo, Hep., AIDS, mental health diagnosis, sleep apnea, morbid obesity)? @ -Diabetes mellitus Was patient admitted / discharged? Hospital course, mention meds given and route, prescriptions, significant lab abnormalities, going to OR and other pertinent info. @ -Upon arrival patient seen and evaluated in [place] [id number]. Thorough history and physical exam was performed. IV access was established. Laboratory studies are conducted. KUB was performed. Results discussed with patient. She does feel improved at this time. Patient stable for discharge home. Instructed to foll ow-up with her primary care doctor for better glucose control. Return for any new or worsening symptoms. Patient agreeable to plan was discharged in stable condition Undiagnosed new problem with uncertain prognosis? @ -no Drug Therapy requiring intensive monitoring for toxicity (Heparin, Nitro, I nsulin, Cardizem)? @ -No Were any procedures done? @ -No Diagnosis/symptom? @ -Acute exacerbation of chronic abdominal pain, acute hyperglycemia, history of diabetes mellitus Acute, or Chronic, or Acute on Chronic? @ -Acute Uncomplicated (without systemic symptoms) or Complicated (systemic symptoms)? @ -Complicated Side effects of treatment? @ -No Exacerbation, Progression, or Severe Exacerbation? @ -No Poses a threat to life or bodily function? How? (Chest pain, [place], [place], pneumonia, PE, COPD, DKA, ARF, appy, cholecystitis, CVA, Diverticulitis, Homicidal, Suicidal, threat to staff... and all critical care pts) @ -No - Lab Data Result diagrams: 10/01/23 17:46 10/01/23 17:46 Lab Results 10/01/23 10/01/23 10/01/23 Range/Units 17:46 17:46 17:46 WBC 8.0 (3.8-10.6) k/uL RBC 4.98 (3.80-5.40) m/uL Hgb 13.1 (11.4-16.0) gm/dL Hct 43.0 (34.0-46.0) % MCV 86.5 (80.0-100.0) fL MCH 26.4 (25.0-35.0) pg MCHC 30.5 L (31.0-37.0) g/dL RDW 16.8 H (11.5-15.5) % Plt Count 454 H (150-450) k/uL MPV 8.2 Neutrophils % 61 % Lymphocytes % 28 % Monocytes % 6 % Eosinophils % 3 % Basophils % 1 % Neutrophils # 4.9 (1.3-7.7) k/uL Lymphocytes # 2.2 (1.0-4.8) k/uL Monocytes # 0.5 (0-1.0) k/uL Eosinophils # 0.2 (0-0.7) k/uL Basophils # 0.1 (0-0.2) k/uL Anisocytosis Slight Sodium 134 L (137-145) mmol/L Potassium 5.7 H (3.5-5.1) mmol/L Chloride 101 (98-107) mmol/L Carbon Dioxide 25 (22-30) mmol/L Anion Gap 8 mmol/L BUN 20 H (7-17) mg/dL Creatinine 0.81 (0.52-1.04) mg/dL Est GFR (CKD-EPI)AfAm >90 (>60 ml/min/1.73 sqM) Est GFR (CKD-EPI)NonAf 85 (>60 ml/min/1.73 sqM) Glucose 358 H (74-99) mg/dL POC Glucose (mg/dL) (70-110) mg/dL POC Glu Implementation Specialist ID Lactic Ac Sepsis Rflx Plasma Lactic Acid Travon (0.7-2.0) mmol/L Calcium 8.9 (8.4-10.2) mg/dL Total Bilirubin 0.8 (0.2-1.3) mg/dL AST 46 H (14-36) U/L ALT 24 (4-34) U/L Alkaline Phosphatase 103 (38-126) U/L Total Protein 7.2 (6.3-8.2) g/dL Albumin 4.0 (3.5-5.0) g/dL Lipase 176 (23-300) U/L Urine Color Colorless Urine Appearance Clear (Clear) Urine pH 5.5 (5.0-8.0) Ur Specific Vanderbilt 1.018 (1.001-1.035) Urine Protein 1+ H (Negative) Urine Glucose (UA) 3+ H (Negative) Urine Ketones Negative (Negative) Urine Blood Negative (Negative) Urine Nitrite Negative (Negative) Urine Bilirubin Negative (Negative) Urine Urobilinogen <2.0 (<2.0) mg/dL Ur Leukocyte Esterase Negative (Negative) Urine WBC 2 (0-5) /hpf Ur Squamous Epith Cells 4 (0-4) /hpf Urine Bacteria Rare H (None) /hpf Urine Mucus Rare H (None) /hpf 10/01/23 10/01/23 10/01/23 Range/Units 17:46 19:48 20:52 WBC (3.8-10.6) k/uL RBC (3.80-5.40) m/uL Hgb (11.4-16.0) gm/dL Hct (34.0-46.0) % MCV (80.0-100.0) fL MCH (25.0-35.0) pg MCHC (31.0-37.0) g/dL RDW (11.5-15.5) % Plt Count (150-450) k/uL MPV Neutrophils % % Lymphocytes % % Monocytes % % Eosinophils % % Basophils % % Neutrophils # (1.3-7.7) k/uL Lymphocytes # (1.0-4.8) k/uL Monocytes # (0-1.0) k/uL Eosinophils # (0-0.7) k/uL Basophils # (0-0.2) k/uL Anisocytosis Sodium (137-145) mmol/L Potassium (3.5-5.1) mmol/L Chloride (98-107) mmol/L Carbon Dioxide (22-30) mmol/L Anion Gap mmol/L BUN (7-17) mg/dL Creatinine (0.52-1.04) mg/dL Est GFR (CKD-EPI)AfAm (>60 ml/min/1.73 sqM) Est GFR (CKD-EPI)NonAf (>60 ml/min/1.73 sqM) Glucose (74-99) mg/dL POC Glucose (mg/dL) 238 H (70-110) mg/dL POC Glu Implementation Specialist ID Ashlee Meyers Lactic Ac Sepsis Rflx Y Plasma Lactic Acid Travon 3.5 H* (0.7-2.0) mmol/L Calcium (8.4-10.2) mg/dL Total Bilirubin (0.2-1.3) mg/dL AST (14-36) U/L ALT (4-34) U/L Alkaline Phosphatase (38-126) U/L Total Protein (6.3-8.2) g/dL Albumin (3.5-5.0) g/dL Lipase (23-300) U/L Urine Color Urine Appearance (Clear) Urine pH (5.0-8.0) Ur Specific Vanderbilt (1.001-1.035) Urine Protein (Negative) Urine Glucose (UA) (Negative) Urine Ketones (Negative) Urine Blood (Negative) Urine Nitrite (Negative) Urine Bilirubin (Negative) Urine Urobilinogen (<2.0) mg/dL Ur Leukocyte Esterase (Negative) Urine WBC (0-5) /hpf Ur Squamous Epith Cells (0-4) /hpf Urine Bacteria (None) /hpf Urine Mucus (None) /hpf Disposition Clinical Impression: Hyperglycemia, Abdominal pain Disposition: HOME SELF-CARE Condition: Stable Instructions (If sedation given, give patient instructions): Abdominal Pain (ED) Additional Instructions: Follow-up with Dr. Cerda and return for any new or worsening symptoms Is patient prescribed a controlled substance at d/c from ED?: No Referrals: Guillermo Cerda MD [Primary Care Provider] - 1-2 days Time of Disposition: 19:51
[2023-10-01] MEDS: INSULIN REGULAR 100 UNIT/ML VIAL (IV) IV ONE (20:15)
[2023-10-01 20:53] LABS: Glucose,Whole Blood 238 mg/dL (70-110)
== END 2023-10-01 20:59 | disposition home or self-care (01) ==
LOC: EC 16:33
DX: E11.65 Type 2 diabetes mellitus with hyperglycemia (principal); G89.29 Other chronic pain; F17.290 Nicotine dependence, other tobacco product, uncomplicated; Z79.4 Long term (current) use of insulin; Z88.1 Allergy status to other antibiotic agents
CPT/HCPCS: 36415; 80053; 83605; 83690; 85025; 81001; 74018; 99284; 96374; 96376; J2270

== ENCOUNTER 2023-10-03 18:31 | Emergency (ER) | payer MEDICARE ==
--- NOTE | 2023-10-03 18:45 | ED ---
General Adult HPI - General Chief complaint: Neck Pain/Injury Stated complaint: Neck Pain Time Seen by Provider: 10/03/23 18:32 Source: patient, RN notes reviewed, old records reviewed Mode of arrival: EMS Limitations: no limitations - History of Present Illness Initial comments: 53-year-old female presenting for evaluation of upper neck pain. Patient states that since yesterday she has had pain worse with movement better neck. She denies any injury. Denies fever. She denies chest pain or difficulty breathing. Denies any numbness to the upper extremities. Patient states that she had used Tylenol at home which did have slight improvement in her symptoms. - Related Data Home Medications Medication Instructions Recorded Confirmed Atorvastatin [Lipitor] 80 mg PO HS 06/25/19 07/30/23 lisinopriL 40 mg PO DAILY 09/24/20 07/30/23 traZODone HCL 50 mg PO HS PRN 01/11/21 07/30/23 Ergocalciferol (Vitamin D2) 1,250 mcg PO TU 03/03/21 07/30/23 [Drisdol (50,000 Iu)] Esomeprazole Magnesium [NexIUM] 20 mg PO DAILY 01/30/22 07/30/23 INSULIN ASPART (NovoLOG) [NovoLOG 20 unit SQ AC-TID 11/26/22 07/30/23 (formulary)] Albuterol Inhaler [Ventolin Hfa 2 puff INHALATION RT-QID 03/01/23 07/30/23 Inhaler] Insulin Glargine,Hum.rec.anlog 30 units SQ HS 07/30/23 07/30/23 [Lantus Solostar Pen] Previous Rx's Medication Instructions Recorded amLODIPine [Norvasc] 10 mg PO DAILY #30 tab 03/11/23 hydrALAZINE HCL [Apresoline] 25 mg PO BID #60 tab 03/11/23 Acetaminophen Tab [Tylenol] 650 mg PO Q6H #30 tab 05/15/23 Ibuprofen [Motrin] 600 mg PO Q8HR PRN #30 tab 05/15/23 Cephalexin [Keflex] 500 mg PO QID #30 cap 08/01/23 Allergies Allergy/AdvReac Type Severity Reaction Status Date / Time levofloxacin [From Levaquin] Allergy Rash/Hives Verified 10/01/23 16:36 Review of Systems ROS Statement: Those systems with pertinent positive or pertinent negative responses have been documented in the HPI. ROS Other: All systems not noted in ROS Statement are negative. Past Medical History Past Medical History: Diabetes Mellitus, GERD/Reflux, Hyperlipidemia, Hypertension, Syncope Additional Past Medical History / Comment(s): Pt recently admitted to [facility] on 07/21/21 with uncontrolled IDDM and hyperkalemia. Other hx: Recurrent pancreatitis, hypertriglyceridemia, elevated lipase, IDDM type II, UTI, chronic low back pain, bulging discs, dental abscesses in past. History of Any Multi-Drug Resistant Organisms: MRSA Date of last positivie culture/infection: 03/01/23 MDRO Source:: Abdomen Past Surgical History: Tubal Ligation Additional Past Surgical History / Comment(s): Age 7 had VSD repair, tumor removal 03/2023 Past Anesthesia/Blood Transfusion Reactions: No Reported Reaction Past Psychological History: No Psychological Hx Reported Smoking Status: Former smoker, Second hand smoke exposure, Vaper Past Alcohol Use History: None Reported Past Drug Use History: None Reported - Past Family History Mother Family Medical History: No Reported History Additional Family Medical History / Comment(s): Mother was healthy. She is , pt cannot recall cause of . Father Family Medical History: Pneumonia Additional Family Medical History / Comment(s): Father at the age of 67yrs from pneumonia General Exam Limitations: no limitations General appearance: alert, in no apparent distress Head exam: Present: atraumatic, normocephalic Eye exam: Present: normal appearance, PERRL ENT exam: Present: normal exam Neck exam: Present: normal inspection, tenderness (Tenderness over the paraspinal and trapezius muscle groups. No midline tenderness.). Absent: meningismus Respiratory exam: Present: normal lung sounds bilaterally. Absent: respiratory distress, wheezes Cardiovascular Exam: Present: regular rate, normal rhythm GI/Abdominal exam: Present: soft. Absent: distended, tenderness, guarding Extremities exam: Present: normal inspection, normal capillary refill Neurological exam: Present: alert, oriented X3, CN II-XII intact. Absent: motor sensory deficit Psychiatric exam: Present: normal affect, normal mood Course Vital Signs 10/03/23 18:33 Temperature 98.5 F Pulse Rate 58 L Respiratory 18 Rate Blood Pressure 132/77 O2 Sat by Pulse 96 Oximetry Medical Decision Making - Medical Decision Making Was pt. sent in by a medical professional or institution (ROSALIE Flaherty, FARM LOAN INSPECTOR, urgent care, hospital, or group home...) When possible be specific @ -[No] Did you speak to anyone other than the patient for history (EMS, parent, family, police, friend...)? What history was obtained from this source @ -[No] Did you review nursing and triage notes (agree or disagree)? Why? @ -[I reviewed and agree with nursing and triage notes] Were old charts reviewed (outside hosp., previous admission, EMS record, old EKG, old radiological studies, urgent care reports/EKG's, group home records)? Report findings @ -[No old charts were reviewed] Differential Musculoskeletal Muscular strain, contusion, ligament sprain, fracture, arthritis, septic arthritis, bursitis, cellulitis, muscle spasm, nerve compression, DVT, arterial occlusion, herpes zoster, electrolyte abnormality, tumor.... This is not meant to be in all inclusive list EKG interpreted by me (3pts min.). @ -[As above] X-rays interpreted by me (1pt min.). @ -[None done] CT interpreted by me (1pt min.). @ -[None done] U/S interpreted by me (1pt. min.). @ -[None done] What testing was considered but not performed or refused? (CT, X-rays, U/S, labs)? Why? @ -[None] What meds were considered but not given or refused? Why? @ -[None] Did you discuss the management of the patient with other professionals (professionals i.e. ROSALIE Flaherty, FARM LOAN INSPECTOR, lab, RT, psych nurse, certified social workers in health care, diesel dinkey operator, teacher, philanthropy officer, geriatric case manager)? Give summary @ -[No] Was smoking cessation discussed for >3mins.? @ -[No] Was critical care preformed (if so, how long)? @ -[No] Were there social determinants of health that impacted care today? How? (Homelessness, low income, unemployed, alcoholism, drug addiction, transportation, low edu. Level, literacy, decrease access to med. care, senior living, rehab)? @ -[No] Was there de-escalation of care discussed even if they declined (Discuss DNR or withdrawal of care, Hospice)? DNR status @ -[No] What co-morbidities impacted this encounter? (DM, HTN, Smoking, COPD, CAD, Cancer, CVA, ARF, Chemo, Hep., AIDS, mental health diagnosis, sleep apnea, morbid obesity)? @ -[None] Was patient admitted / discharged? Hospital course, mention meds given and route, prescriptions, significant lab abnormalities, going to OR and other pertinent info. @ -[Patient has musculoskeletal neck pain without anginal equivalent. Pain is worse with movement. Tender to palpation. No history of trauma. No fever. No alarming features. Given Toradol in the emergency department with improvement. Stable for discharge with outpatient follow-up. Undiagnosed new problem with uncertain prognosis? @ -[No] Drug Therapy requiring intensive monitoring for toxicity (Heparin, Nitro, Insulin, Cardizem)? @ -[No] Were any procedures done? @ -[No] Diagnosis/symptom? @Neck strain Acute, or Chronic, or Acute on Chronic? @ -Acute Uncomplicated (without systemic symptoms) or Complicated (systemic symptoms)? @ -[default] Side effects of treatment? @ -[No] Exacerbation, Progression, or Severe Exacerbation? @ -[No] Poses a threat to life or bodily function? How? (Chest pain, [place], [place], pneumonia, PE, COPD, DKA, ARF, appy, cholecystitis, CVA, Diverticulitis, Homicidal, Suicidal, threat to staff... and all critical care pts) @ -[No] Disposition Clinical Impression: Strain of neck muscle Disposition: HOME SELF-CARE Condition: Good Instructions (If sedation given, give patient instructions): Cervical Strain (ED) Is patient prescribed a controlled substance at d/c from ED?: No Referrals: None,Stated [Primary Care Provider] - 1-2 days Time of Disposition: 18:45
[2023-10-03 18:49] VITALS: BP 132/77; PULSE 58; RESP 18; TEMP 98.5
[2023-10-03] MEDS: KETOROLAC 15 MG/ML 1 ML VIAL IVP STA (19:06)
== END 2023-10-03 19:07 | disposition home or self-care (01) ==
LOC: EC 18:31
DX: S16.1XXA Strain of muscle, fascia and tendon at neck level, initial encounter (principal); Z87.891 Personal history of nicotine dependence; Z88.1 Allergy status to other antibiotic agents; X58.XXXA Exposure to other specified factors, initial encounter
CPT/HCPCS: 99284; 96374; J1885

== ENCOUNTER 2023-10-11 14:12 | Emergency (ER) | payer MEDICARE ==
[2023-10-11 14:23] VITALS: BP 145/76; RESP 18; TEMP 98.6
--- NOTE | 2023-10-11 14:27 | ED ---
URI HPI - General Chief Complaint: Upper Respiratory Infection Stated Complaint: Coughing Time Seen by Provider: 10/11/23 14:26 Source: patient, RN notes reviewed, old records reviewed Mode of arrival: EMS Limitations: no limitations - History of Present Illness Initial Comments: This is a 53-year-old female well-known well-known to this emergency department coming in for cough and congestion today. Patient states she has been managing pretty well blood sugars been normal she has been feeling well lately just complaining of cough and congestion today no fevers no chest pain no abdominal pain no nausea vomit diarrhea or other complaints MD Complaint: cough -: days(s) Severity: mild Consistency: intermittent Improves With: nothing Worsens With: nothing - Related Data Home Medications Medication Instructions Recorded Confirmed Atorvastatin [Lipitor] 80 mg PO HS 06/25/19 07/30/23 lisinopriL 40 mg PO DAILY 09/24/20 07/30/23 traZODone HCL 50 mg PO HS PRN 01/11/21 07/30/23 Ergocalciferol (Vitamin D2) 1,250 mcg PO TU 03/03/21 07/30/23 [Drisdol (50,000 Iu)] Esomeprazole Magnesium [NexIUM] 20 mg PO DAILY 01/30/22 07/30/23 INSULIN ASPART (NovoLOG) [NovoLOG 20 unit SQ AC-TID 11/26/22 07/30/23 (formulary)] Albuterol Inhaler [Ventolin Hfa 2 puff INHALATION RT-QID 03/01/23 07/30/23 Inhaler] Insulin Glargine,Hum.rec.anlog 30 units SQ HS 07/30/23 07/30/23 [Lantus Solostar Pen] Previous Rx's Medication Instructions Recorded amLODIPine [Norvasc] 10 mg PO DAILY #30 tab 03/11/23 hydrALAZINE HCL [Apresoline] 25 mg PO BID #60 tab 03/11/23 Acetaminophen Tab [Tylenol] 650 mg PO Q6H #30 tab 05/15/23 Ibuprofen [Motrin] 600 mg PO Q8HR PRN #30 tab 05/15/23 Cephalexin [Keflex] 500 mg PO QID #30 cap 08/01/23 Azithromycin [Zithromax] 500 mg PO DAILY #5 tab 10/11/23 Benzonatate [Tessalon Perles] 100 mg PO TID PRN #15 capsule 10/11/23 Bacitracin/Polymyx Oint 1 applic TOPICAL BID #10 gm 10/17/23 [Polysporin Oint] Cephalexin [Keflex] 500 mg PO Q12HR 7 Days #14 cap 10/20/23 Sulfamethox-Tmp 800-160Mg [Bactrim 1 tab PO Q12HR 7 Days #14 tab 10/20/23 DS 800-160 mg] Allergies Allergy/AdvReac Type Severity Reaction Status Date / Time levofloxacin [From Levaquin] Allergy Rash/Hives Verified 10/20/23 18:35 Review of Systems ROS Statement: Those systems with pertinent positive or pertinent negative responses have been documented in the HPI. ROS Other: All systems not noted in ROS Statement are negative. Past Medical History Past Medical History: Diabetes Mellitus, GERD/Reflux, Hyperlipidemia, Hypertension, Syncope Additional Past Medical History / Comment(s): Pt recently admitted to [facility] on 07/21/21 with uncontrolled IDDM and hyperkalemia. Other hx: Recurrent pancreatitis, hypertriglyceridemia, elevated lipase, IDDM type II, UTI, chronic low back pain, bulging discs, dental abscesses in past. History of Any Multi-Drug Resistant Organisms: MRSA Date of last positivie culture/infection: 03/01/23 MDRO Source:: Abdomen Past Surgical History: Tubal Ligation Additional Past Surgical History / Comment(s): Age 7 had VSD repair, tumor removal 03/2023 Past Anesthesia/Blood Transfusion Reactions: No Reported Reaction Past Psychological History: No Psychological Hx Reported Smoking Status: Former smoker, Second hand smoke exposure, Vaper Past Alcohol Use History: None Reported Past Drug Use History: None Reported - Past Family History Mother Family Medical History: No Reported History Additional Family Medical History / Comment(s): Mother was healthy. She is , pt cannot recall cause of . Father Family Medical History: Pneumonia Additional Family Medical History / Comment(s): Father at the age of 67yrs from pneumonia General Exam Limitations: no limitations General appearance: alert, in no apparent distress, anxious Head exam: Present: atraumatic, normocephalic, normal inspection Eye exam: Present: normal appearance, PERRL, EOMI. Absent: scleral icterus, conjunctival injection, periorbital swelling ENT exam: Present: normal exam, mucous membranes moist Neck exam: Present: normal inspection. Absent: tenderness, meningismus, lymphadenopathy Respiratory exam: Present: normal lung sounds bilaterally. Absent: respiratory distress, wheezes, rales, rhonchi, stridor Cardiovascular Exam: Present: regular rate, normal rhythm, normal heart sounds. Absent: systolic murmur, diastolic murmur, rubs, gallop, clicks GI/Abdominal exam: Present: soft, normal bowel sounds. Absent: distended, tenderness, guarding, rebound, rigid Extremities exam: Present: normal inspection, full ROM, normal capillary refill. Absent: tenderness, pedal edema, joint swelling, calf tenderness Back exam: Present: normal inspection Neurological exam: Present: alert, oriented X3, CN II-XII intact Psychiatric exam: Present: normal affect, normal mood Skin exam: Present: warm, dry, intact, normal color. Absent: rash Course Vital Signs 10/11/23 10/11/23 10/11/23 14:20 15:30 15:40 Temperature 98.6 F Pulse Rate 79 68 70 Respiratory 18 Rate Blood Pressure 145/76 O2 Sat by Pulse 97 Oximetry 10/11/23 16:12 Temperature Pulse Rate 70 Respiratory Rate Blood Pressure O2 Sat by Pulse Oximetry - Reevaluation(s) Reevaluation #1: Medical records reviewed Reevaluation #2: Patient symptoms improved Reevaluation #3: Patient informed of results and questions answered Reevaluation #4: Was pt. sent in by a medical professional or institution (, PA, CALL CENTER TEAM LEADER, urgent care, hospital, or longterm...) When possible be specific @ -no Did you speak to anyone other than the patient for history (EMS, parent, family, police, friend...)? What history was obtained from this source @ -no Did you review nursing and triage notes (agree or disagree)? Why? @ -agree Are old charts reviewed (outside hosp., previous admission, EMS record, old EKG, old radiological studies, urgent care reports/EKG's, longterm records)? Report findings @ -yes Differential Diagnosis (chest pain, altered mental status, abdominal pain women, abdominal pain men, vaginal bleeding, weakness, fever, dyspnea, syncope, headache, dizziness, GI bleed, back pain, seizure, CVA, palpatations, mental health, musculoskeletal)? @ -prior EKG interpreted by me (3pts min.). @ -no X-rays interpreted by me (1pt min.). @ -yes negative for acute disease CT interpreted by me (1pt min.). @ -no U/S interpreted by me (1pt. min.). @ -no What testing was considered but not performed or refused? (CT, X-rays, U/S, labs)? Why? @ -none What meds were considered but not given or refused? Why? @ -none Did you discuss the management of the patient with other professionals (professionals i.e. , PA, CALL CENTER TEAM LEADER, lab, RT, psych nurse, hospital social worker, sash finisher, teacher, hospital chief executive officer, case operator)? Give summary @ -no Was smoking cessation discussed for >3mins.? @ -no Was critical care preformed (if so, how long)? @ -no Were there social determinants of health that impacted care today? How? (Homelessness, low income, unemployed, alcoholism, drug addiction, transportation, low edu. Level, literacy, decrease access to med. care, long-term, rehab)? @ -none Was there de-escalation of care discussed even if they declined (Discuss DNR or withdrawal of care, Hospice)? DNR status @ -no What co-morbidities impacted this encounter? (DM, HTN, Smoking, COPD, CAD, Cancer, CVA, ARF, Chemo, Hep., AIDS, mental health diagnosis, sleep apnea, morbid obesity)? @ -none Was patient admitted / discharged? Hospital course, mention meds given and route, prescriptions, significant lab abnormalities, going to OR and other pertinent info. @ - 52-year-old female to the ER for evaluation of cough and congestion normal x-ray here in the ER patient feels well and can be discharged home Discharged Undiagnosed new problem with uncertain prognosis? @ -no Drug Therapy requiring intensive monitoring for toxicity (Heparin, Nitro, Insulin, Cardizem)? @ -no Were any procedures done? @ -no Diagnosis/symptom? @ -Upper respiratory infection Acute, or Chronic, or Acute on Chronic? @ -Acute Uncomplicated (without systemic symptoms) or Complicated (systemic symptoms)? @ -Complicated Side effects of treatment? @ -no Exacerbation, Progression, or Severe Exacerbation? @ -exacerbation Poses a threat to life or bodily function? How? (Chest pain, [place], [place], pneumonia, PE, COPD, DKA, ARF, appy, cholecystitis, CVA, Diverticulitis, Homicidal, Suicidal, threat to staff... and all critical care pts) @ -yes with low mental status and IQ Medical Decision Making - Medical Decision Making 52-year-old female to the ER for evaluation of cough and congestion normal x-ray here in the ER patient feels well and can be discharged home - Radiology Data Radiology results: report reviewed (Chest x-ray is negative for acute disease), image reviewed Disposition Clinical Impression: Upper respiratory tract infection, Viral illness Disposition: HOME SELF-CARE Condition: Good Instructions (If sedation given, give patient instructions): Upper Respiratory Infection (ED) Prescriptions: Benzonatate [Tessalon Perles] 100 mg PO TID PRN #15 capsule PRN Reason: Cough Azithromycin [Zithromax] 500 mg PO DAILY #5 tab Is patient prescribed a controlled substance at d/c from ED?: No Referrals: None,Stated [Primary Care Provider] - 1-2 days Time of Disposition: 16:00
--- NOTE | 2023-10-11 15:10 | XR ---
EXAMINATION TYPE: XR chest 2V DATE OF EXAM: 10/11/2023 COMPARISON: 09/08/2023, 06/17/2013 TECHNIQUE: PA and lateral views submitted. HISTORY: Pain FINDINGS: The lungs are clear and there is no pneumothorax, pleural effusion, or focal pneumonia. Heart size normal and no overt failure. Median sternotomy changes with reduced inspiration. Pleural thickening a nd deformities along the left lateral rib cage compatible with remote trauma.. 4 mm nodule lateral ma rgin left midlung may be related to tiny too small to characterize nodule or superimposed structures. Adjacent linear scarring or atelectasis. IMPRESSION: 1. No acute process.
[2023-10-11] MEDS: HYDROmorphone 1 MG/ML 1 ML SYRINGE IM STA (15:25)
[2023-10-11] MEDS: AZITHROMYCIN 500 MG TAB PO STA (15:26)
[2023-10-11] MEDS: BENZONATATE 100 MG CAP PO STA (15:26)
[2023-10-11] MEDS: IPRATROPIUM-ALBUTEROL 3 ML NEB INHALATION STA (15:29)
[2023-10-11 15:41] VITALS: PULSE 70
== END 2023-10-11 16:43 | disposition home or self-care (01) ==
LOC: EC 14:12
DX: B34.9 Viral infection, unspecified (principal); J06.9 Acute upper respiratory infection, unspecified; F17.290 Nicotine dependence, other tobacco product, uncomplicated; Z88.1 Allergy status to other antibiotic agents
CPT/HCPCS: 94640; 71046; 99284; 96372; J1170

== ENCOUNTER 2023-10-17 12:21 | Emergency (ER) | payer MEDICARE ==
[2023-10-17 12:30] VITALS: BP 137/80; TEMP 98.4
[2023-10-17 13:01] VITALS: RESP 18
--- NOTE | 2023-10-17 14:04 | ED ---
URI HPI - General Chief Complaint: Upper Respiratory Infection Stated Complaint: abd pain Time Seen by Provider: 10/17/23 14:01 Source: patient, RN notes reviewed Mode of arrival: EMS Limitations: no limitations - History of Present Illness Initial Comments: 53-year-old female presented to the ER via EMS with a chief complaint of cough. She states for the past 2 days she has been having a productive cough with phlegm. She also is reporting myalgias and congestion. She states she has tried [id number] cough drops with mild relief of her cough and sore throat. She denies any fevers or chills. She denies any shortness of breath, chest pain, abdominal pain or peripheral edema. Patient also is reporting a sore area on her left thigh. She states she also noticed this about 2 days ago and is extremely painful for her to lay on her left side. No other complaints. - Related Data Home Medications Medication Instructions Recorded Confirmed Atorvastatin [Lipitor] 80 mg PO HS 06/25/19 07/30/23 lisinopriL 40 mg PO DAILY 09/24/20 07/30/23 traZODone HCL 50 mg PO HS PRN 01/11/21 07/30/23 Ergocalciferol (Vitamin D2) 1,250 mcg PO TU 03/03/21 07/30/23 [Drisdol (50,000 Iu)] Esomeprazole Magnesium [NexIUM] 20 mg PO DAILY 01/30/22 07/30/23 INSULIN ASPART (NovoLOG) [NovoLOG 20 unit SQ AC-TID 11/26/22 07/30/23 (formulary)] Albuterol Inhaler [Ventolin Hfa 2 puff INHALATION RT-QID 03/01/23 07/30/23 Inhaler] Insulin Glargine,Hum.rec.anlog 30 units SQ HS 07/30/23 07/30/23 [Lantus Solostar Pen] Previous Rx's Medication Instructions Recorded amLODIPine [Norvasc] 10 mg PO DAILY #30 tab 03/11/23 hydrALAZINE HCL [Apresoline] 25 mg PO BID #60 tab 03/11/23 Acetaminophen Tab [Tylenol] 650 mg PO Q6H #30 tab 05/15/23 Ibuprofen [Motrin] 600 mg PO Q8HR PRN #30 tab 05/15/23 Cephalexin [Keflex] 500 mg PO QID #30 cap 08/01/23 Azithromycin [Zithromax] 500 mg PO DAILY #5 tab 10/11/23 Benzonatate [Tessalon Perles] 100 mg PO TID PRN #15 capsule 10/11/23 Bacitracin/Polymyx Oint 1 applic TOPICAL BID #10 gm 10/17/23 [Polysporin Oint] Allergies Allergy/AdvReac Type Severity Reaction Status Date / Time levofloxacin [From Levaquin] Allergy Rash/Hives Verified 10/17/23 12:27 Review of Systems ROS Statement: Those systems with pertinent positive or pertinent negative responses have been documented in the HPI. ROS Other: All systems not noted in ROS Statement are negative. Past Medical History Past Medical History: Diabetes Mellitus, GERD/Reflux, Hyperlipidemia, Hypertension, Syncope Additional Past Medical History / Comment(s): Pt recently admitted to [facility] on 07/21/21 with uncontrolled IDDM and hyperkalemia. Other hx: Recurrent pancreatitis, hypertriglyceridemia, elevated lipase, IDDM type II, UTI, chronic low back pain, bulging discs, dental abscesses in past. History of Any Multi-Drug Resistant Organisms: MRSA Date of last positivie culture/infection: 03/01/23 MDRO Source:: Abdomen Past Surgical History: Tubal Ligation Additional Past Surgical History / Comment(s): Age 7 had VSD repair, tumor removal 03/2023 Past Anesthesia/Blood Transfusion Reactions: No Reported Reaction Past Psychological History: No Psychological Hx Reported Smoking Status: Former smoker, Second hand smoke exposure, Vaper Past Alcohol Use History: None Reported Past Drug Use History: None Reported - Past Family History Mother Family Medical History: No Reported History Additional Family Medical History / Comment(s): Mother was healthy. She is , pt cannot recall cause of . Father Family Medical History: Pneumonia Additional Family Medical History / Comment(s): Father at the age of 67yrs from pneumonia General Exam Limitations: no limitations General appearance: alert, in no apparent distress ENT exam: Present: normal exam, normal oropharynx, mucous membranes moist, TM's normal bilaterally Neck exam: Present: normal inspection. Absent: tenderness, meningismus, lymphadenopathy Respiratory exam: Present: wheezes (mild bilaterally) Cardiovascular Exam: Present: regular rate, normal rhythm, normal heart sounds. Absent: systolic murmur, diastolic murmur, rubs, gallop, clicks GI/Abdominal exam: Present: soft, normal bowel sounds. Absent: distended, tenderness, guarding, rebound, rigid Extremities exam: Present: normal inspection, full ROM, normal capillary refill. Absent: tenderness, pedal edema, joint swelling, calf tenderness Skin exam: Present: warm, dry, intact, normal color, other (1 cm superficial abscess to left thigh. No surrounding erythema. Tender to touch.). Absent: rash Course Vital Signs 10/17/23 10/17/23 10/17/23 12:27 12:58 15:17 Temperature 98.4 F Pulse Rate 79 86 Respiratory 16 18 Rate Blood Pressure 137/80 O2 Sat by Pulse 97 Oximetry Medical Decision Making - Medical Decision Making Was pt. sent in by a medical professional or institution (, PA, HAY STACKER, urgent care, hospital, or fci...) When possible be specific @ -No Did you speak to anyone other than the patient for history (EMS, parent, family, police, friend...)? What history was obtained from this source @ -No Did you review nursing and triage notes (agree or disagree)? Why? @ -I reviewed and agree with nursing and triage notes Were old charts reviewed (outside hosp., previous admission, EMS record, old EKG, old radiological studies, urgent care reports/EKG's, fci records)? Report findings @ -No old charts were reviewed Differential Diagnosis (chest pain, altered mental status, abdominal pain women, abdominal pain men, vaginal bleeding, weakness, fever, dyspnea, syncope, headache, dizziness, GI bleed, back pain, seizure, CVA, palpatations, mental health, musculoskeletal)? @ -COVID, RSV, influenza, viral sinusitis, pneumonia this list is not meant to be all-inclusive EKG interpreted by me (3pts min.). @ -None X-rays interpreted by me (1pt min.). @ -Chest x-ray interpreted by me negative for acute cardiopulmonary process. CT interpreted by me (1pt min.). @ -None done U/S interpreted by me (1pt. min.). @ -None done What testing was considered but not performed or refused? (CT, X-rays, U/S, labs)? Why? @ -None What meds were considered but not given or refused? Why? @ -None Did you discuss the management of the patient with other professionals (professionals i.e. , PA, HAY STACKER, lab, RT, psych nurse, social human services assistants, attorney lawyer, teacher, humane officer, oil field caser)? Give summary @ -No Was smoking cessation discussed for >3mins.? @ -No Was critical care preformed (if so, how long)? @ -No Were there social determinants of health that impacted care today? How? (Homelessness, low income, unemployed, alcoholism, drug addiction, transportation, low edu. Level, literacy, decrease access to med. care, long-term, rehab)? @ -No Was there de-escalation of care discussed even if they declined (Discuss DNR or withdrawal of care, Hospice)? DNR status @ -No What co-morbidities impacted this encounter? (DM, HTN, Smoking, COPD, CAD, Cancer, CVA, ARF, Chemo, Hep., AIDS, mental health diagnosis, sleep apnea, morbid obesity)? @ -Obese, diabetes Was patient admitted / discharged? Hospital course, mention meds given and route, prescriptions, significant lab abnormalities, going to OR and other pertinent info. @ -Discharge. 53-year-old female presented to the ER with a chief complaint of cough and congestion. History and physical exam completed. Vitals stable. Patient in no signs of acute distress and nontoxic-appearing. Exam remarkable for mild wheezing in all lung chandler bilaterally. Also a small what appears to be an ingrown hair on her left thigh which is tender to touch. Fluid expressed and sent for culture. Flu, COVID, RSV negative. Chest x-ray interpreted by me negative for acute cardiopulmonary process. Patient received DuoNeb nebulizer treatment. Upon reevaluation, patient resting comfortably in exam room in no signs of acute distress. Results discussed with patient, all questions answered. Symptoms believed to be viral in nature. Triple antibiotic cream prescribed for ingrown hair. Patient stable for discharge at this time. Return parameters discussed. Patient discharged in stable condition with follow-up to PCP. Patient verbally expressed understanding agree with care plan. Case discussed with ED attending, Dr. Huynh. Undiagnosed new problem with uncertain prognosis? @ -No Drug Therapy requiring intensive monitoring for toxicity (Heparin, Nitro, Insulin, Cardizem)? @ -No Were any procedures done? @ -No Diagnosis/symptom? @ -Viral sinusitis/ingrown hair Acute, or Chronic, or Acute on Chronic? @ -Acute Uncomplicated (without systemic symptoms) or Complicated (systemic symptoms)? @ -Uncomplicated Side effects of treatment? @ -No Exacerbation, Progression, or Severe Exacerbation? @ -No Poses a threat to life or bodily function? How? (Chest pain, [place], [place], pneumonia, PE, COPD, DKA, ARF, appy, cholecystitis, CVA, Diverticulitis, Homicidal, Suicidal, threat to staff... and all critical care pts) @ -Low likelihood - Lab Data Lab Results 10/17/23 Range/Units 13:32 Influenza Type A (PCR) Not Detected (Not Detectd) Influenza Type B (PCR) Not Detected (Not Detectd) RSV (PCR) Not Detected (Not Detectd) SARS-CoV-2 (PCR) Not Detected (Not Detectd) - Radiology Data Radiology results: report reviewed, image reviewed Disposition Clinical Impression: Acute viral sinusitis, Viral illness Disposition: HOME SELF-CARE Condition: Stable Instructions (If sedation given, give patient instructions): Sinusitis (ED) Additional Instructions: Please follow-up with Dr. Cerda in the next 1 to 2 days. Return to the ER for new or worse concerns. Prescriptions: Bacitracin/Polymyx Oint [Polysporin Oint] 1 applic TOPICAL BID #10 gm Is patient prescribed a controlled substance at d/c from ED?: No Referrals: Guillermo Cerda MD [Primary Care Provider] - 1-2 days Time of Disposition: 14:35
--- NOTE | 2023-10-17 14:23 | XR ---
EXAMINATION TYPE: XR chest 2V DATE OF EXAM: 10/17/2023 COMPARISON: 10/11/2023 HISTORY: 53-year-old female with cough TECHNIQUE: Frontal and lateral views FINDINGS: Heart upper limits of normal in size. Hazy densities likely relating to large patient body habitus. M ild interstitial prominence is similar. No consolidation or pleural effusion. IMPRESSION: Chronic changes, possible underlying bronchitis or asthma. No focal infiltrate seen.
[2023-10-17] MEDS: IPRATROPIUM-ALBUTEROL 3 ML NEB INHALATION STA (15:16)
[2023-10-17 15:19] VITALS: PULSE 86
== END 2023-10-17 15:26 | disposition home or self-care (01) ==
LOC: EC 12:21
DX: J01.90 Acute sinusitis, unspecified (principal); B97.89 Other viral agents as the cause of diseases classified elsewhere; B96.89 Other specified bacterial agents as the cause of diseases classified elsewhere; E11.9 Type 2 diabetes mellitus without complications; L02.416 Cutaneous abscess of left lower limb; E66.9 Obesity, unspecified; F17.290 Nicotine dependence, other tobacco product, uncomplicated; Z79.4 Long term (current) use of insulin; Z88.1 Allergy status to other antibiotic agents; Z68.35 Body mass index [BMI] 35.0-35.9, adult
CPT/HCPCS: 71046; 87070; 87205; 87636; 94640; 99284

== ENCOUNTER 2023-10-19 14:14 | Emergency (ER) | payer MEDICARE ==
[2023-10-19 14:22] VITALS: RESP 18; TEMP 99.4
--- NOTE | 2023-10-19 14:36 | ED ---
Recheck HPI - General Chief Complaint: Recheck/Abnormal Lab/Rx Stated Complaint: Hyperglycemia Time Seen by Provider: 10/19/23 14:18 Source: patient, EMS, RN notes reviewed, old records reviewed Mode of arrival: EMS Limitations: no limitations - History of Present Illness Initial Comments: This is a 53-year-old female well-known to this emergency department today. Patient presents today for evaluation regards to elevated blood sugar concern for cough and congestion patient is well-known to this ER and these are patient's persistent and repeat Arun complaints MD Complaint: abnormal lab -: unknown Returns Today for: Called Because of Abnormal Lab/Test Symptoms Since Prior Visit: no new symptoms Context: planned re-check Associated Symptoms: none - Related Data Home Medications Medication Instructions Recorded Confirmed Atorvastatin [Lipitor] 80 mg PO HS 06/25/19 07/30/23 lisinopriL 40 mg PO DAILY 09/24/20 07/30/23 traZODone HCL 50 mg PO HS PRN 01/11/21 07/30/23 Ergocalciferol (Vitamin D2) 1,250 mcg PO TU 03/03/21 07/30/23 [Drisdol (50,000 Iu)] Esomeprazole Magnesium [NexIUM] 20 mg PO DAILY 01/30/22 07/30/23 INSULIN ASPART (NovoLOG) [NovoLOG 20 unit SQ AC-TID 11/26/22 07/30/23 (formulary)] Albuterol Inhaler [Ventolin Hfa 2 puff INHALATION RT-QID 03/01/23 07/30/23 Inhaler] Insulin Glargine,Hum.rec.anlog 30 units SQ HS 07/30/23 07/30/23 [Lantus Solostar Pen] Previous Rx's Medication Instructions Recorded amLODIPine [Norvasc] 10 mg PO DAILY #30 tab 03/11/23 hydrALAZINE HCL [Apresoline] 25 mg PO BID #60 tab 03/11/23 Acetaminophen Tab [Tylenol] 650 mg PO Q6H #30 tab 05/15/23 Ibuprofen [Motrin] 600 mg PO Q8HR PRN #30 tab 05/15/23 Cephalexin [Keflex] 500 mg PO QID #30 cap 08/01/23 Azithromycin [Zithromax] 500 mg PO DAILY #5 tab 07/05/24 Benzonatate [Tessalon Perles] 100 mg PO TID PRN #15 capsule 10/11/23 Bacitracin/Polymyx Oint 1 applic TOPICAL BID #10 gm 10/17/23 [Polysporin Oint] Cephalexin [Keflex] 500 mg PO Q12HR 7 Days #14 cap 10/20/23 Sulfamethox-Tmp 800-160Mg [Bactrim 1 tab PO Q12HR 7 Days #14 tab 10/20/23 DS 800-160 mg] Allergies Allergy/AdvReac Type Severity Reaction Status Date / Time levofloxacin [From Levaquin] Allergy Rash/Hives Verified 10/20/23 18:35 Review of Systems ROS Statement: Those systems with pertinent positive or pertinent negative responses have been documented in the HPI. ROS Other: All systems not noted in ROS Statement are negative. Past Medical History Past Medical History: Diabetes Mellitus, GERD/Reflux, Hyperlipidemia, Hypertension, Syncope Additional Past Medical History / Comment(s): Pt recently admitted to [facility] on 07/21/21 with uncontrolled IDDM and hyperkalemia. Other hx: Recurrent pancreatitis, hypertriglyceridemia, elevated lipase, IDDM type II, UTI, chronic low back pain, bulging discs, dental abscesses in past. History of Any Multi-Drug Resistant Organisms: MRSA Date of last positivie culture/infection: 03/01/23 MDRO Source:: Abdomen Past Surgical History: Tubal Ligation Additional Past Surgical History / Comment(s): Age 7 had VSD repair, tumor removal 03/2023 Past Anesthesia/Blood Transfusion Reactions: No Reported Reaction Past Psychological History: No Psychological Hx Reported Smoking Status: Former smoker, Second hand smoke exposure, Vaper Past Alcohol Use History: None Reported Past Drug Use History: None Reported - Past Family History Mother Family Medical History: No Reported History Additional Family Medical History / Comment(s): Mother was healthy. She is , pt cannot recall cause of . Father Family Medical History: Pneumonia Additional Family Medical History / Comment(s): Father at the age of 67yrs from pneumonia General Exam Limitations: no limitations General appearance: alert, in no apparent distress Head exam: Present: atraumatic, normocephalic, normal inspection Eye exam: Present: normal appearance, PERRL, EOMI. Absent: scleral icterus, conjunctival injection, periorbital swelling ENT exam: Present: normal exam, mucous membranes moist Neck exam: Present: normal inspection. Absent: tenderness, meningismus, lymphadenopathy Respiratory exam: Present: normal lung sounds bilaterally. Absent: respiratory distress, wheezes, rales, rhonchi, stridor Cardiovascular Exam: Present: regular rate, normal rhythm, normal heart sounds. Absent: systolic murmur, diastolic murmur, rubs, gallop, clicks GI/Abdominal exam: Present: soft, normal bowel sounds. Absent: distended, tenderness, guarding, rebound, rigid Extremities exam: Present: normal inspection, full ROM, normal capillary refill. Absent: tenderness, pedal edema, joint swelling, calf tenderness Back exam: Present: normal inspection Neurological exam: Present: alert, oriented X3, CN II-XII intact Psychiatric exam: Present: normal affect, normal mood Skin exam: Present: warm, dry, intact, normal color. Absent: rash Course Vital Signs 10/19/23 10/19/23 14:20 17:00 Temperature 99.4 F Pulse Rate 82 71 Respiratory 18 18 Rate Blood Pressure 138/80 132/68 O2 Sat by Pulse 97 99 Oximetry - Reevaluation(s) Reevaluation #1: Medical records reviewed Reevaluation #2: Patient symptoms improved Reevaluation #3: Patient informed of results and questions answered Reevaluation #4: Was pt. sent in by a medical professional or institution (ROSALIE Flaherty, RETAIL BAKERY MANAGER, urgent care, hospital, or assisted...) When possible be specific @ -no Did you speak to anyone other than the patient for history (EMS, parent, family, police, friend...)? What history was obtained from this source @ -no Did you review nursing and triage notes (agree or disagree)? Why? @ -agree Are old charts reviewed (outside hosp., previous admission, EMS record, old EKG, old radiological studies, urgent care reports/EKG's, assisted records)? Report findings @ -yes Differential Diagnosis (chest pain, altered mental status, abdominal pain women, abdominal pain men, vaginal bleeding, weakness, fever, dyspnea, syncope, headache, dizziness, GI bleed, back pain, seizure, CVA, palpatations, mental health, musculoskeletal)? @ -prior EKG interpreted by me (3pts min.). @ -no X-rays interpreted by me (1pt min.). @ -no CT interpreted by me (1pt min.). @ -no U/S interpreted by me (1pt. min.). @ -no What testing was considered but not performed or refused? (CT, X-rays, U/S, labs)? Why? @ -none What meds were considered but not given or refused? Why? @ -none Did you discuss the management of the patient with other professionals (professionals i.e. DrShayan, PA, RETAIL BAKERY MANAGER, lab, RT, psych nurse, long term care social worker, supervisor sewing room, teacher, unemployment insurance hearing officer, case repairer)? Give summary @ -no Was smoking cessation discussed for >3mins.? @ -no Was critical care preformed (if so, how long)? @ -no Were there social determinants of health that impacted care today? How? (Homelessness, low income, unemployed, alcoholism, drug addiction, transportation, low edu. Level, literacy, decrease access to med. care, long term, rehab)? @ -none Was there de-escalation of care discussed even if they declined (Discuss DNR or withdrawal of care, Hospice)? DNR status @ -no What co-morbidities impacted this encounter? (DM, HTN, Smoking, COPD, CAD, Cancer, CVA, ARF, Chemo, Hep., AIDS, mental health diagnosis, sleep apnea, morbid obesity)? @ -none Was patient admitted / discharged? Hospital course, mention meds given and route, prescriptions, significant lab abnormalities, going to OR and other pertinent info. @ -53 female to ER for recheck of blood sugar elevation, patient has no acute findings here in the ER and can be discharged home Discharge Undiagnosed new problem with uncertain prognosis? @ -no Drug Therapy requiring intensive monitoring for toxicity (Heparin, Nitro, Insulin, Cardizem)? @ -no Were any procedures done? @ -no Diagnosis/symptom? @ -Hyperglycemia Acute, or Chronic, or Acute on Chronic? @ -Acute Uncomplicated (without systemic symptoms) or Complicated (systemic symptoms)? @ -Complicated Side effects of treatment? @ -no Exacerbation, Progression, or Severe Exacerbation? @ -exacerbation Poses a threat to life or bodily function? How? (Chest pain, USA, OR, pneumonia, PE, COPD, DKA, ARF, appy, cholecystitis, CVA, Diverticulitis, Homicidal, Suicidal, threat to staff... and all critical care pts) @ -no Reevaluation #5: Differential Weakness: Hypoglycemia, shock, sepsis, hyponatremia, anemia, infection, OR, ETOH, adverse medicine reaction, overdose, stroke, this is not meant to be an all-inclusive list. Medical Decision Making - Medical Decision Making 53 female to ER for evaluation recheck blood sugar elevated blood sugar, patient is in no distress here in the ER and can be discharged home - Lab Data Result diagrams: 10/19/23 15:35 10/19/23 15:35 Lab Results 10/19/23 10/19/23 10/19/23 Range/Units 15:30 15:35 15:35 WBC 11.2 H (3.8-10.6) k/uL RBC 4.80 (3.80-5.40) m/uL Hgb 12.9 (11.4-16.0) gm/dL Hct 41.0 (34.0-46.0) % MCV 85.5 (80.0-100.0) fL MCH 26.8 (25.0-35.0) pg MCHC 31.3 (31.0-37.0) g/dL RDW 17.1 H (11.5-15.5) % Plt Count 504 H (150-450) k/uL MPV 7.4 Neutrophils % 74 % Lymphocytes % 17 % Monocytes % 4 % Eosinophils % 3 % Basophils % 1 % Neutrophils # 8.3 H (1.3-7.7) k/uL Lymphocytes # 1.8 (1.0-4.8) k/uL Monocytes # 0.5 (0-1.0) k/uL Eosinophils # 0.3 (0-0.7) k/uL Basophils # 0.1 (0-0.2) k/uL Anisocytosis Slight Sodium 133 L (137-145) mmol/L Potassium 5.0 (3.5-5.1) mmol/L Chloride 104 (98-107) mmol/L Carbon Dioxide 17 L (22-30) mmol/L Anion Gap 12 mmol/L BUN 18 H (7-17) mg/dL Creatinine 0.52 (0.52-1.04) mg/dL Est GFR (CKD-EPI)AfAm >90 (>60 ml/min/1.73 sqM) Est GFR (CKD-EPI)NonAf >90 (>60 ml/min/1.73 sqM) Glucose 394 H (74-99) mg/dL POC Glucose (mg/dL) (70-110) mg/dL POC Glu Surface Grinding Machine Hand ID Calcium 9.1 (8.4-10.2) mg/dL Phosphorus 4.6 H (2.5-4.5) mg/dL Magnesium 1.4 L (1.6-2.3) mg/dL Total Bilirubin 0.7 (0.2-1.3) mg/dL AST 35 (14-36) U/L ALT 27 (4-34) U/L Alkaline Phosphatase 135 H (38-126) U/L Total Protein 6.8 (6.3-8.2) g/dL Albumin 3.9 (3.5-5.0) g/dL Urine Color Colorless Urine Appearance Clear (Clear) Urine pH 6.0 (5.0-8.0) Ur Specific [place] 1.019 (1.001-1.035) Urine Protein 2+ H (Negative) Urine Glucose (UA) 4+ H (Negative) Urine Ketones Negative (Negative) Urine Blood Negative (Negative) Urine Nitrite Negative (Negative) Urine Bilirubin Negative (Negative) Urine Urobilinogen <2.0 (<2.0) mg/dL Ur Leukocyte Esterase Negative (Negative) Urine RBC <1 (0-5) /hpf Urine WBC 1 (0-5) /hpf Ur Squamous Epith Cells 2 (0-4) /hpf Hyaline Casts 1 (0-2) /lpf Acetone, Qual Negative (Negative) 10/19/23 10/19/23 Range/Units 15:37 16:31 WBC (3.8-10.6) k/uL RBC (3.80-5.40) m/uL Hgb (11.4-16.0) gm/dL Hct (34.0-46.0) % MCV (80.0-100.0) fL MCH (25.0-35.0) pg MCHC (31.0-37.0) g/dL RDW (11.5-15.5) % Plt Count (150-450) k/uL MPV Neutrophils % % Lymphocytes % % Monocytes % % Eosinophils % % Basophils % % Neutrophils # (1.3-7.7) k/uL Lymphocytes # (1.0-4.8) k/uL Monocytes # (0-1.0) k/uL Eosinophils # (0-0.7) k/uL Basophils # (0-0.2) k/uL Anisocytosis Sodium (137-145) mmol/L Potassium (3.5-5.1) mmol/L Chloride (98-107) mmol/L Carbon Dioxide (22-30) mmol/L Anion Gap mmol/L BUN (7-17) mg/dL Creatinine (0.52-1.04) mg/dL Est GFR (CKD-EPI)AfAm (>60 ml/min/1.73 sqM) Est GFR (CKD-EPI)NonAf (>60 ml/min/1.73 sqM) Glucose (74-99) mg/dL POC Glucose (mg/dL) 405 H 282 H (70-110) mg/dL POC Glu Surface Grinding Machine Hand ID Madelyn Ruiz Melissa Calcium (8.4-10.2) mg/dL Phosphorus (2.5-4.5) mg/dL Magnesium (1.6-2.3) mg/dL Total Bilirubin (0.2-1.3) mg/dL AST (14-36) U/L ALT (4-34) U/L Alkaline Phosphatase (38-126) U/L Total Protein (6.3-8.2) g/dL Albumin (3.5-5.0) g/dL Urine Color Urine Appearance (Clear) Urine pH (5.0-8.0) Ur Specific [place] (1.001-1.035) Urine Protein (Negative) Urine Glucose (UA) (Negative) Urine Ketones (Negative) Urine Blood (Negative) Urine Nitrite (Negative) Urine Bilirubin (Negative) Urine Urobilinogen (<2.0) mg/dL Ur Leukocyte Esterase (Negative) Urine RBC (0-5) /hpf Urine WBC (0-5) /hpf Ur Squamous Epith Cells (0-4) /hpf Hyaline Casts (0-2) /lpf Acetone, Qual (Negative) Disposition Clinical Impression: Hyperglycemia Disposition: HOME SELF-CARE Condition: Good Instructions (If sedation given, give patient instructions): Diabetic Hyperglycemia (ED) Is patient prescribed a controlled substance at d/c from ED?: No Referrals: Guillermo Cerda MD [Primary Care Provider] - 1-2 days Time of Disposition: 16:05
[2023-10-19 15:38] LABS: Glucose,Whole Blood 405 mg/dL (70-110)
[2023-10-19] MEDS: SODIUM CHLORIDE 0.9% 1,000 ML IV STA (15:39)
[2023-10-19] MEDS: INSULIN REGULAR 100 UNIT/ML VIAL (IM/SQ) SQ ONE (15:40)
[2023-10-19 15:55] LABS: Anisocytosis Slight; Basophils # (A) 0.1 k/uL (0-0.2); Basophils % (A) 1 %; Eosinophils # (A) 0.3 k/uL (0-0.7); Eosinophils % (A) 3 %; HGB 12.9 gm/dL (11.4-16.0); Lymphocytes # (A) 1.8 k/uL (1.0-4.8); Lymphocytes % (A) 17 %; MCH 26.8 pg (25.0-35.0); MCHC 31.3 g/dL (31.0-37.0); MCV 85.5 fL (80.0-100.0); Mean Platelet Volume 7.4; Monocytes # (A) 0.5 k/uL (0-1.0); Monocytes % (A) 4 %; Neutrophils # (A) 8.3 k/uL (1.3-7.7); Neutrophils % (A) 74 %; Platelet Count 504 k/uL (150-450); RDW 17.1 % (11.5-15.5); WBC 11.2 k/uL (3.8-10.6)
[2023-10-19 15:56] LABS: Appearance,Urine Clear (Clear); Bilirubin,Urine Negative (Negative); Blood,Urine Negative (Negative); Color,Urine Colorless; Glucose,Urine (UA) 4+ (Negative); Hyaline Casts,Urine 1 /lpf (0-2); Ketones,Urine Negative (Negative); Leukocyte Esterase,Urine Negative (Negative); Nitrite,Urine Negative (Negative); Protein,Urine 2+ (Negative); RBC,Urine <1 /hpf (0-5); Specific Gravity,Urine 1.019 (1.001-1.035); Squamous Epithelial Cell,Urine 2 /hpf (0-4); Urobilinogen,Urine <2.0 mg/dL (<2.0); WBC,Urine 1 /hpf (0-5)
[2023-10-19] MEDS: HYDROmorphone 1 MG/ML 1 ML SYRINGE IVP STA (16:12)
[2023-10-19 16:20] LABS: African American GFR (CKD) >90 (>60 ml/min/1.73 sqM); Albumin 3.9 g/dL (3.5-5.0); Anion Gap 12 mmol/L; Blood Urea Nitrogen 18 mg/dL (7-17); Calcium 9.1 mg/dL (8.4-10.2); Carbon Dioxide 17 mmol/L (22-30); Chloride 104 mmol/L (98-107); Glucose 394 mg/dL (74-99); Non-African American GFR(CKD) >90 (>60 ml/min/1.73 sqM); Sodium 133 mmol/L (137-145); Total Bilirubin 0.7 mg/dL (0.2-1.3); Total Protein 6.8 g/dL (6.3-8.2)
[2023-10-19 16:32] LABS: Glucose,Whole Blood 282 mg/dL (70-110)
[2023-10-19 16:39] LABS: AST 35 U/L (14-36); Magnesium 1.4 mg/dL (1.6-2.3); Phosphorus 4.6 mg/dL (2.5-4.5)
[2023-10-19 16:40] LABS: ALT 27 U/L (4-34); Alkaline Phosphatase 135 U/L (38-126)
[2023-10-19 17:01] VITALS: BP 132/68; PULSE 71
== END 2023-10-19 17:01 | disposition home or self-care (01) ==
LOC: EC 14:14
DX: E11.65 Type 2 diabetes mellitus with hyperglycemia (principal); Z77.22 Contact with and (suspected) exposure to environmental tobacco smoke (acute) (chronic); Z88.1 Allergy status to other antibiotic agents; Z79.4 Long term (current) use of insulin
CPT/HCPCS: 36415; 80053; 82009; 83735; 84100; 85025; 81001; 99284; 96374; 96361; J1170

== ENCOUNTER 2023-10-20 18:01 | Emergency (ER) | payer MEDICARE ==
[2023-10-20 20:12] LABS: Anisocytosis Slight; Basophils # (A) 0.1 k/uL (0-0.2); Basophils % (A) 1 %; Eosinophils # (A) 0.4 k/uL (0-0.7); Eosinophils % (A) 3 %; HCT 38.2 % (34.0-46.0); HGB 12.5 gm/dL (11.4-16.0); Lymphocytes # (A) 2.6 k/uL (1.0-4.8); Lymphocytes % (A) 23 %; MCH 27.8 pg (25.0-35.0); MCHC 32.7 g/dL (31.0-37.0); MCV 84.9 fL (80.0-100.0); Mean Platelet Volume 8.2; Monocytes # (A) 0.4 k/uL (0-1.0); Monocytes % (A) 4 %; Neutrophils # (A) 7.7 k/uL (1.3-7.7); Neutrophils % (A) 68 %; Platelet Count 477 k/uL (150-450); RBC 4.49 m/uL (3.80-5.40); WBC 11.3 k/uL (3.8-10.6)
[2023-10-20 21:06] LABS: Carbon Dioxide 18 mmol/L (22-30); Chloride 104 mmol/L (98-107); Glucose 343 mg/dL (74-99); Potassium 4.8 mmol/L (3.5-5.1); Sodium 133 mmol/L (137-145)
[2023-10-20 21:07] LABS: AST 40 U/L (14-36); African American GFR (CKD) >90 (>60 ml/min/1.73 sqM); Albumin 3.7 g/dL (3.5-5.0); Alkaline Phosphatase 124 U/L (38-126); Anion Gap 11 mmol/L; Blood Urea Nitrogen 16 mg/dL (7-17); Calcium 9.2 mg/dL (8.4-10.2); Non-African American GFR(CKD) >90 (>60 ml/min/1.73 sqM); Total Bilirubin 0.7 mg/dL (0.2-1.3); Total Protein 6.7 g/dL (6.3-8.2)
[2023-10-20 21:29] LABS: ALT 24 U/L (4-34)
--- NOTE | 2023-10-20 21:49 | ED ---
General Adult HPI - General Chief complaint: Skin/Abscess/Foreign Body Stated complaint: abcess Time Seen by Provider: 10/20/23 18:42 Source: patient, EMS, RN notes reviewed, old records reviewed Mode of arrival: EMS Limitations: no limitations - History of Present Illness Initial comments: Patient is a 53-year-old female presents emergency department complaining of possible abscess on her left thigh. Has a history of this. Recently had it incised yesterday by another provider. Did not get discharged home on antibiotics and is requesting possible antibiotics. Denies any fevers or chills. Denies any chest pain or shortness of breath. Denies any fevers, cough, congestion. Has no other acute complaints. Is a diabetic. Presents for further evaluation. States it has been draining since yesterday. - Related Data Home Medications Medication Instructions Recorded Confirmed Atorvastatin [Lipitor] 80 mg PO HS 06/25/19 07/30/23 lisinopriL 40 mg PO DAILY 09/24/20 07/30/23 traZODone HCL 50 mg PO HS PRN 01/11/21 07/30/23 Ergocalciferol (Vitamin D2) 1,250 mcg PO TU 03/03/21 07/30/23 [Drisdol (50,000 Iu)] Esomeprazole Magnesium [NexIUM] 20 mg PO DAILY 01/30/22 07/30/23 INSULIN ASPART (NovoLOG) [NovoLOG 20 unit SQ AC-TID 11/26/22 07/30/23 (formulary)] Albuterol Inhaler [Ventolin Hfa 2 puff INHALATION RT-QID 03/01/23 07/30/23 Inhaler] Insulin Glargine,Hum.rec.anlog 30 units SQ HS 07/30/23 07/30/23 [Lantus Solostar Pen] Previous Rx's Medication Instructions Recorded amLODIPine [Norvasc] 10 mg PO DAILY #30 tab 03/11/23 hydrALAZINE HCL [Apresoline] 25 mg PO BID #60 tab 03/11/23 Acetaminophen Tab [Tylenol] 650 mg PO Q6H #30 tab 05/15/23 Ibuprofen [Motrin] 600 mg PO Q8HR PRN #30 tab 05/15/23 Cephalexin [Keflex] 500 mg PO QID #30 cap 08/01/23 Azithromycin [Zithromax] 500 mg PO DAILY #5 tab 10/11/23 Benzonatate [Tessalon Perles] 100 mg PO TID PRN #15 capsule 10/11/23 Bacitracin/Polymyx Oint 1 applic TOPICAL BID #10 gm 10/17/23 [Polysporin Oint] Cephalexin [Keflex] 500 mg PO Q12HR 7 Days #14 cap 10/20/23 Sulfamethox-Tmp 800-160Mg [Bactrim 1 tab PO Q12HR 7 Days #14 tab 10/20/23 DS 800-160 mg] Allergies Allergy/AdvReac Type Severity Reaction Status Date / Time levofloxacin [From Levaquin] Allergy Rash/Hives Verified 10/20/23 18:35 Review of Systems ROS Statement: Those systems with pertinent positive or pertinent negative responses have been documented in the HPI. Review of Systems: CONST: Denies fever EYES: Denies blurry vision ENT: Denies nasal congestion C/V: Denies Chest pain RESP: Denies shortness of breath GI: Denies abdominal pain : Denies dysuria SKIN: Endorses cellulitis versus possible abscess over the left thigh. MSK: Denies joint pain. NEURO: Denies headache ROS Other: All systems not noted in ROS Statement are negative. Past Medical History Past Medical History: Diabetes Mellitus, GERD/Reflux, Hyperlipidemia, Hypertension, Syncope Additional Past Medical History / Comment(s): Pt recently admitted to [facility] on 07/21/21 with uncontrolled IDDM and hyperkalemia. Other hx: Recurrent pancreatitis, hypertriglyceridemia, elevated lipase, IDDM type II, UTI, chronic low back pain, bulging discs, dental abscesses in past. History of Any Multi-Drug Resistant Organisms: MRSA Date of last positivie culture/infection: 03/01/23 MDRO Source:: Abdomen Past Surgical History: Tubal Ligation Additional Past Surgical History / Comment(s): Age 7 had VSD repair, tumor removal 03/2023 Past Anesthesia/Blood Transfusion Reactions: No Reported Reaction Past Psychological History: No Psychological Hx Reported Smoking Status: Former smoker, Second hand smoke exposure, Vaper Past Alcohol Use History: None Reported Past Drug Use History: None Reported - Past Family History Mother Family Medical History: No Reported History Additional Family Medical History / Comment(s): Mother was healthy. She is , pt cannot recall cause of . Father Family Medical History: Pneumonia Additional Family Medical History / Comment(s): Father at the age of 67yrs from pneumonia General Exam - General Exam Comments Initial Comments: General: Afebrile. In no acute obvious distress. HEAD: Normal with no signs of head trauma. EYES: EOMI. ENT: Hearing grossly intact. RESPIRATORY: No respiratory distress. C/V: Regular rate and rhythm. ABD: Abdomen is nondistended. EXT: No obvious deformity. SKIN: Erythematous, indurated changes over the left lateral thigh the site of the previous incised area. No obvious fluctuance palpated. Concern for cellulitis versus possible mild underlying abscess. Patient does appear to have some draining discharge from the site. NEURO: Alert and oriented. Limitations: no limitations Course Vital Signs 10/20/23 10/20/23 18:25 22:10 Temperature 99.6 F 99.1 F Pulse Rate 74 76 Respiratory 16 96 H Rate Blood Pressure 148/74 170/92 O2 Sat by Pulse 96 Oximetry Medical Decision Making - Medical Decision Making Was pt. sent in by a medical professional or institution (Dr. PA, AUTHOR AGENT, urgent care, hospital, or prison...) When possible be specific @ -No Did you speak to anyone other than the patient for history (EMS, parent, family, police, friend...)? What history was obtained from this source @ -No Did you review nursing and triage notes (agree or disagree)? Why? @ -I reviewed and agree with nursing and triage notes Were old charts reviewed (outside hosp., previous admission, EMS record, old EK G, old radiological studies, urgent care reports/EKG's, prison records)? Report findings @ -Chart reviewed from yesterday when patient was not sent antibiotics. Differential Diagnosis (chest pain, altered mental status, abdominal pain women, abdominal pain men, vaginal bleeding, weakness, fever, dyspnea, syncope, headache, dizziness, GI bleed, back pain, seizure, CVA, palpatations, mental health, musculoskeletal)? @ -Abscess, cellulitis, this list is not all inclusive. EKG interpreted by me (3pts min.). @ -None done X-rays interpreted by me (1pt min.). @ -None done CT interpreted by me (1pt min.). @ -None done U/S interpreted by me (1pt. min.). @ -None done What testing was considered but not performed or refused? (CT, X-rays, U/S, labs)? Why? @ -None What meds were considered but not given or refused? Why? @ -None Did you discuss the management of the patient with other professionals (professionals i.e. , PA, AUTHOR AGENT, lab, RT, psych nurse, forensic social worker, wooden fence erector, teacher, account officer, rn case manager hospice)? Give summary @ -No Was smoking cessation discussed for >3mins.? @ -No Was critical care preformed (if so, how long)? @ -No Were there social determinants of health that impacted care today? How? (Homelessness, low income, unemployed, alcoholism, drug addiction, tra nsportation, low edu. Level, literacy, decrease access to med. care, correction, rehab)? @ -No Was there de-escalation of care discussed even if they declined (Discuss DNR or withdrawal of care, Hospice)? DNR status @ -No What co-morbidities impacted this encounter? (DM, HTN, Smoking, COPD, CAD, Cancer, CVA, ARF, Chemo, Hep., AIDS, mental health diagnosis, sleep apnea, morbid obesity)? @ -None Was patient admitted / discharged? Hospital course, mention meds given and route, prescriptions, significant lab abnormalities, going to OR and other pertinent info. @ -Patient presents for cellulitis versus abscess of left thigh. We will obtain basic labs. I did a bedside ultrasound which revealed no obvious drainable abscess. There is significant induration. It is draining at this time. The patient was not given antibiotics. Laboratory studies remarkable for slight leukocytosis of 11.3 but otherwise unremarkable except for mild hyperglycemia. I did discuss this with the patient and she will be started on antibiotics for home and instructions follow-up with her PCP. She was in agreement this plan. Recommend returning if any worsening symptoms. Patient given a dose of Bactrim and Keflex prior to discharge I will provide the patient with a prescription for Bactrim and Keflex. I inst ructed the patient to follow up with their PCP in the next 1-3 days.. I explained that the patient should return to the emergency department if they experience any worsening symptoms. Strict return precautions were discussed with the patient. The patient expressed understanding of these instructions. I answered all questions that the patient had. The patient was discharged home in good condition with their prescriptions and follow up information. Undiagnosed new problem with uncertain prognosis? @ -No Drug Therapy requiring intensive monitoring for toxicity (Heparin, Nitro, Insulin, Cardizem)? @ -No Were any procedures done? @ -No Diagnosis/symptom? @ -Cellulitis Acute, or Chronic, or Acute on Chronic? @ -Acute Uncomplicated (without systemic symptoms) or Complicated (systemic symptoms)? @ -Uncomplicated Side effects of treatment? @ -No Exacerbation, Progression, or Severe Exacerbation? @ -No Poses a threat to life or bodily function? How? (Chest pain, USA, OR, pneumonia, PE, COPD, DKA, ARF, appy, cholecystitis, CVA, Diverticulitis, Homicidal, Suicidal, threat to staff... and all critical care pts) @ -No - Lab Data Result diagrams: 10/20/23 19:53 10/20/23 19:53 Lab Results 10/20/23 10/20/23 Range/Units 19:53 19:53 WBC 11.3 H (3.8-10.6) k/uL RBC 4.49 (3.80-5.40) m/uL Hgb 12.5 (11.4-16.0) gm/dL Hct 38.2 (34.0-46.0) % MCV 84.9 (80.0-100.0) fL MCH 27.8 (25.0-35.0) pg MCHC 32.7 (31.0-37.0) g/dL RDW 17.0 H (11.5-15.5) % Plt Count 477 H (150-450) k/uL MPV 8.2 Neutrophils % 68 % Lymphocytes % 23 % Monocytes % 4 % Eosinophils % 3 % Basophils % 1 % Neutrophils # 7.7 (1.3-7.7) k/uL Lymphocytes # 2.6 (1.0-4.8) k/uL Monocytes # 0.4 (0-1.0) k/uL Eosinophils # 0.4 (0-0.7) k/uL Basophils # 0.1 (0-0.2) k/uL Anisocytosis Slight Sodium 133 L (137-145) mmol/L Potassium 4.8 (3.5-5.1) mmol/L Chloride 104 (98-107) mmol/L Carbon Dioxide 18 L (22-30) mmol/L Anion Gap 11 mmol/L BUN 16 (7-17) mg/dL Creatinine 0.55 (0.52-1.04) mg/dL Est GFR (CKD-EPI)AfAm >90 (>60 ml/min/1.73 sqM) Est GFR (CKD-EPI)NonAf >90 (>60 ml/min/1.73 sqM) Glucose 343 H (74-99) mg/dL Calcium 9.2 (8.4-10.2) mg/dL Total Bilirubin 0.7 (0.2-1.3) mg/dL AST 40 H (14-36) U/L ALT 24 (4-34) U/L Alkaline Phosphatase 124 (38-126) U/L Total Protein 6.7 (6.3-8.2) g/dL Albumin 3.7 (3.5-5.0) g/dL Disposition Clinical Impression: Cellulitis Disposition: HOME SELF-CARE Condition: Good Instructions (If sedation given, give patient instructions): Cellulitis (ED) Prescriptions: Sulfamethox-Tmp 800-160Mg [Bactrim DS 800-160 mg] 1 tab PO Q12HR 7 Days #14 tab Cephalexin [Keflex] 500 mg PO Q12HR 7 Days #14 cap Is patient prescribed a controlled substance at d/c from ED?: No Referrals: Guillermo Cerda MD [Primary Care Provider] - 1-2 days Time of Disposition: 21:49
[2023-10-20 22:12] VITALS: BP 170/92; PULSE 76; RESP 96; TEMP 99.1
[2023-10-20] MEDS: CEPHALEXIN 500 MG CAP PO STA (22:12)
[2023-10-20] MEDS: SULFAMETHOX-TMP 800-160MG 1 EACH TAB PO STA (22:13)
== END 2023-10-20 22:21 | disposition home or self-care (01) ==
LOC: EC 18:01
DX: L03.116 Cellulitis of left lower limb (principal); F17.290 Nicotine dependence, other tobacco product, uncomplicated; Z88.1 Allergy status to other antibiotic agents
CPT/HCPCS: 36415; 80053; 85025; 99284

== ENCOUNTER 2023-10-27 11:04 | Emergency (ER) | payer MEDICARE ==
[2023-10-27 11:10] VITALS: RESP 18; TEMP 99
[2023-10-27 11:12] LABS: Glucose,Whole Blood 311 mg/dL (70-110)
[2023-10-27] MEDS: SODIUM CHLORIDE 0.9% 2,000 ML IV ONE (11:19)
[2023-10-27 11:21] LABS: Anisocytosis Slight; Basophils # (A) 0.1 k/uL (0-0.2); Basophils % (A) 1 %; Eosinophils # (A) 0.3 k/uL (0-0.7); Eosinophils % (A) 3 %; HCT 43.6 % (34.0-46.0); HGB 14.2 gm/dL (11.4-16.0); Lymphocytes # (A) 2.1 k/uL (1.0-4.8); Lymphocytes % (A) 23 %; MCH 26.8 pg (25.0-35.0); MCHC 32.5 g/dL (31.0-37.0); MCV 82.5 fL (80.0-100.0); Mean Platelet Volume 6.5; Microcytosis Slight; Monocytes # (A) 0.3 k/uL (0-1.0); Monocytes % (A) 4 %; Neutrophils # (A) 6.3 k/uL (1.3-7.7); Neutrophils % (A) 68 %; Platelet Count 606 k/uL (150-450); RBC 5.28 m/uL (3.80-5.40); WBC 9.2 k/uL (3.8-10.6)
[2023-10-27] MEDS: INSULIN REGULAR 100 UNIT/ML VIAL (IV) IV ONE (11:38)
[2023-10-27 11:44] LABS: ALT 21 U/L (4-34); AST 29 U/L (14-36); African American GFR (CKD) >90 (>60 ml/min/1.73 sqM); Albumin 4.2 g/dL (3.5-5.0); Alkaline Phosphatase 152 U/L (38-126); Anion Gap 18 mmol/L; Blood Urea Nitrogen 25 mg/dL (7-17); Calcium 10.2 mg/dL (8.4-10.2); Carbon Dioxide 15 mmol/L (22-30); Chloride 103 mmol/L (98-107); Glucose 327 mg/dL (74-99); Non-African American GFR(CKD) >90 (>60 ml/min/1.73 sqM); Potassium 5.2 mmol/L (3.5-5.1); Sodium 136 mmol/L (137-145); Total Bilirubin 0.7 mg/dL (0.2-1.3); Total Protein 7.5 g/dL (6.3-8.2)
--- NOTE | 2023-10-27 11:46 | XR ---
EXAMINATION TYPE: XR chest 2V DATE OF EXAM: 10/27/2023 11:37 AM CLINICAL INDICATION:Female, 53 years old with history of cough; [facility] COMPARISON: Chest radiographs from 10/17/2023. TECHNIQUE: XR chest 2V Frontal view of the chest. FINDINGS: Lungs/Pleura: There is no evidence of pleural effusion, focal consolidation, or pneumothorax. Pulmonary vascularity: Unremarkable. Heart/mediastinum: Cardiomediastinal silhouette is unremarkable. Musculoskeletal: No acute osseous pathology. IMPRESSION: No acute cardiopulmonary disease/process.
--- NOTE | 2023-10-27 11:56 | ED ---
Nausea/Vomiting/Diarrhea HPI - General Chief complaint: Nausea/Vomiting/Diarrhea Stated complaint: Hyperglycemia Time Seen by Provider: 10/27/23 11:11 Source: patient, EMS, RN notes reviewed Mode of arrival: EMS Limitations: no limitations - History of Present Illness Initial comments: 53-year-old female presents emergency department with multiple complaints. Patient states that she does not feel well she has been weak, hyperglycemia along with a cough. Patient was switched to Trulicity recently. Patient denies any known fever but states that she complains of chills. She states that she has had nausea and diarrhea. Denies any localized abdominal pain no chest pain. - Related Data Home Medications Medication Instructions Recorded Confirmed Atorvastatin [Lipitor] 80 mg PO HS 06/25/19 07/30/23 lisinopriL 40 mg PO DAILY 09/24/20 07/30/23 traZODone HCL 50 mg PO HS PRN 01/11/21 07/30/23 Ergocalciferol (Vitamin D2) 1,250 mcg PO TU 03/03/21 07/30/23 [Drisdol (50,000 Iu)] Esomeprazole Magnesium [NexIUM] 20 mg PO DAILY 01/30/22 07/30/23 INSULIN ASPART (NovoLOG) [NovoLOG 20 unit SQ AC-TID 11/26/22 07/30/23 (formulary)] Albuterol Inhaler [Ventolin Hfa 2 puff INHALATION RT-QID 03/01/23 07/30/23 Inhaler] Insulin Glargine,Hum.rec.anlog 30 units SQ HS 07/30/23 07/30/23 [Lantus Solostar Pen] Previous Rx's Medication Instructions Recorded amLODIPine [Norvasc] 10 mg PO DAILY #30 tab 03/11/23 hydrALAZINE HCL [Apresoline] 25 mg PO BID #60 tab 03/11/23 Acetaminophen Tab [Tylenol] 650 mg PO Q6H #30 tab 05/15/23 Ibuprofen [Motrin] 600 mg PO Q8HR PRN #30 tab 05/15/23 Cephalexin [Keflex] 500 mg PO QID #30 cap 08/01/23 Azithromycin [Zithromax] 500 mg PO DAILY #5 tab 10/11/23 Benzonatate [Tessalon Perles] 100 mg PO TID PRN #15 capsule 10/11/23 Bacitracin/Polymyx Oint 1 applic TOPICAL BID #10 gm 10/17/23 [Polysporin Oint] Cephalexin [Keflex] 500 mg PO Q12HR 7 Days #14 cap 10/20/23 Sulfamethox-Tmp 800-160Mg [Bactrim 1 tab PO Q12HR 7 Days #14 tab 10/20/23 DS 800-160 mg] Allergies Allergy/AdvReac Type Severity Reaction Status Date / Time levofloxacin [From Levaquin] Allergy Rash/Hives Verified 10/20/23 18:35 Review of Systems ROS Statement: Those systems with pertinent positive or pertinent negative responses have been documented in the HPI. ROS Other: All systems not noted in ROS Statement are negative. Past Medical History Past Medical History: Diabetes Mellitus, GERD/Reflux, Hyperlipidemia, Hypertension, Syncope Additional Past Medical History / Comment(s): Pt recently admitted to [facility] on 07/21/21 with uncontrolled IDDM and hyperkalemia. Other hx: Recurrent pancreatitis, hypertriglyceridemia, elevated lipase, IDDM type II, UTI, chronic low back pain, bulging discs, dental abscesses in past. History of Any Multi-Drug Resistant Organisms: MRSA Date of last positivie culture/infection: 03/01/23 MDRO Source:: Abdomen Past Surgical History: Tubal Ligation Additional Past Surgical History / Comment(s): Age 7 had VSD repair, tumor removal 03/2023 Past Anesthesia/Blood Transfusion Reactions: No Reported Reaction Past Psychological History: No Psychological Hx Reported Smoking Status: Former smoker, Second hand smoke exposure, Vaper Past Alcohol Use History: None Reported Past Drug Use History: None Reported - Past Family History Mother Family Medical History: No Reported History Additional Family Medical History / Comment(s): Mother was healthy. She is , pt cannot recall cause of . Father Family Medical History: Pneumonia Additional Family Medical History / Comment(s): Father at the age of 67yrs from pneumonia General Exam Limitations: no limitations General appearance: alert, in no apparent distress Head exam: Present: atraumatic, normocephalic, normal inspection Eye exam: Present: normal appearance, PERRL, EOMI. Absent: scleral icterus, conjunctival injection, periorbital swelling ENT exam: Present: normal exam, normal oropharynx, mucous membranes moist Neck exam: Present: normal inspection, full ROM. Absent: tenderness, meningismus, lymphadenopathy Respiratory exam: Present: normal lung sounds bilaterally. Absent: respiratory distress, wheezes, rales, rhonchi, stridor Cardiovascular Exam: Present: regular rate, normal rhythm, normal heart sounds. Absent: systolic murmur, diastolic murmur, rubs, gallop, clicks Neurological exam: Present: alert, oriented X3, CN II-XII intact Course Vital Signs 10/27/23 10/27/23 10/27/23 11:07 12:02 13:34 Temperature 99.0 F Pulse Rate 83 74 79 Respiratory 18 18 18 Rate Blood Pressure 146/86 124/74 152/82 O2 Sat by Pulse 97 96 959 H Oximetry Medical Decision Making - Medical Decision Making Was pt. sent in by a medical professional or institution (, ROSALIE, TANNING CONSULTANT, urgent care, hospital, or intermediate...) When possible be specific @ -No Did you speak to anyone other than the patient for history (EMS, parent, family, police, friend...)? What history was obtained from this source @ -No Did you review nursing and triage notes (agree or disagree)? Why? @ -I reviewed and agree with nursing and triage notes Were old charts reviewed (outside hosp., previous admission, EMS record, old EKG, old radiological studies, urgent care reports/EKG's, intermediate records)? Report findings @ -No old charts were reviewed Differential Diagnosis (chest pain, altered mental status, abdominal pain women, abdominal pain men, vaginal bleeding, weakness, fever, dyspnea, syncope, headache, dizziness, GI bleed, back pain, seizure, CVA, palpatations, mental health, musculoskeletal)? @ -Hyperglycemia, nausea vomiting, abdominal pain, uncontrolled diabetes, URI discharged EKG interpreted by me (3pts min.). @ -As above X-rays interpreted by me (1pt min.). @ -None done CT interpreted by me (1pt min.). @ -None done U/S interpreted by me (1pt. min.). @ -None done What testing was considered but not performed or refused? (CT, X-rays, U/S, labs)? Why? @ -None What meds were considered but not given or refused? Why? @ -None Did you discuss the management of the patient with other professionals (professionals i.e. , PA, TANNING CONSULTANT, lab, RT, psych nurse, social media job titles, photo manager, teacher, property officer, cyanide case hardener)? Give summary @ -No Was smoking cessation discussed for >3mins.? @ -No Was critical care preformed (if so, how long)? @ -No Were there social determinants of health that impacted care today? How? (Homelessness, low income, unemployed, alcoholism, drug addiction, transportation, low edu. Level, literacy, decrease access to med. care, shelter, rehab)? @ -No Was there de-escalation of care discussed even if they declined (Discuss DNR or withdrawal of care, Hospice)? DNR status @ -No What co-morbidities impacted this encounter? (DM, HTN, Smoking, COPD, CAD, Cancer, CVA, ARF, Chemo, Hep., AIDS, mental health diagnosis, sleep apnea, morbid obesity)? @ -None Was patient admitted / discharged? Hospital course, mention meds given and route, prescriptions, significant lab abnormalities, going to OR and other pertinent info. @ -Discharged patient blood glucose is improved after IV fluids, insulin. Patient has negative workup otherwise including labs, x-ray. Patient is discharged in stable condition return breath discussed. Undiagnosed new problem with uncertain prognosis? @ -No Drug Therapy requiring intensive monitoring for toxicity (Heparin, Nitro, Insulin, Cardizem)? @ -No Were any procedures done? @ -No Diagnosis/symptom? @-Hyperglycemia Acute, or Chronic, or Acute on Chronic? @ -Acute Uncomplicated (without systemic symptoms) or Complicated (systemic symptoms)? @ -Uncomplicated Side effects of treatment? @ -No Exacerbation, Progression, or Severe Exacerbation? @ -No Poses a threat to life or bodily function? How? (Chest pain, [place], [place], pneumonia, PE, COPD, DKA, ARF, appy, cholecystitis, CVA, Diverticulitis, Homicidal, Suicidal, threat to staff... and all critical care pts) @ -No - Lab Data Result diagrams: 10/27/23 11:13 10/27/23 11:13 Lab Results 10/27/23 10/27/23 10/27/23 Range/Units 11:10 11:13 11:13 WBC 9.2 (3.8-10.6) k/uL RBC 5.28 (3.80-5.40) m/uL Hgb 14.2 (11.4-16.0) gm/dL Hct 43.6 (34.0-46.0) % MCV 82.5 (80.0-100.0) fL MCH 26.8 (25.0-35.0) pg MCHC 32.5 (31.0-37.0) g/dL RDW 17.0 H (11.5-15.5) % Plt Count 606 H (150-450) k/uL MPV 6.5 Neutrophils % 68 % Lymphocytes % 23 % Monocytes % 4 % Eosinophils % 3 % Basophils % 1 % Neutrophils # 6.3 (1.3-7.7) k/uL Lymphocytes # 2.1 (1.0-4.8) k/uL Monocytes # 0.3 (0-1.0) k/uL Eosinophils # 0.3 (0-0.7) k/uL Basophils # 0.1 (0-0.2) k/uL Anisocytosis Slight Microcytosis Slight Sodium 136 L (137-145) mmol/L Potassium 5.2 H (3.5-5.1) mmol/L Chloride 103 (98-107) mmol/L Carbon Dioxide 15 L (22-30) mmol/L Anion Gap 18 mmol/L BUN 25 H (7-17) mg/dL Creatinine 0.65 (0.52-1.04) mg/dL Est GFR (CKD-EPI)AfAm >90 (>60 ml/min/1.73 sqM) Est GFR (CKD-EPI)NonAf >90 (>60 ml/min/1.73 sqM) Glucose 327 H (74-99) mg/dL POC Glucose (mg/dL) 311 H (70-110) mg/dL POC Glu Rhinestone Setter ID Robbie Medrano Calcium 10.2 (8.4-10.2) mg/dL Total Bilirubin 0.7 (0.2-1.3) mg/dL AST 29 (14-36) U/L ALT 21 (4-34) U/L Alkaline Phosphatase 152 H (38-126) U/L Total Protein 7.5 (6.3-8.2) g/dL Albumin 4.2 (3.5-5.0) g/dL 07/21/24 Range/Units 12:29 WBC (3.8-10.6) k/uL RBC (3.80-5.40) m/uL Hgb (11.4-16.0) gm/dL Hct (34.0-46.0) % MCV (80.0-100.0) fL MCH (25.0-35.0) pg MCHC (31.0-37.0) g/dL RDW (11.5-15.5) % Plt Count (150-450) k/uL MPV Neutrophils % % Lymphocytes % % Monocytes % % Eosinophils % % Basophils % % Neutrophils # (1.3-7.7) k/uL Lymphocytes # (1.0-4.8) k/uL Monocytes # (0-1.0) k/uL Eosinophils # (0-0.7) k/uL Basophils # (0-0.2) k/uL Anisocytosis Microcytosis Sodium (137-145) mmol/L Potassium (3.5-5.1) mmol/L Chloride (98-107) mmol/L Carbon Dioxide (22-30) mmol/L Anion Gap mmol/L BUN (7-17) mg/dL Creatinine (0.52-1.04) mg/dL Est GFR (CKD-EPI)AfAm (>60 ml/min/1.73 sqM) Est GFR (CKD-EPI)NonAf (>60 ml/min/1.73 sqM) Glucose (74-99) mg/dL POC Glucose (mg/dL) 223 H (70-110) mg/dL POC Glu Rhinestone Setter ID Edna Marroquin Calcium (8.4-10.2) mg/dL Total Bilirubin (0.2-1.3) mg/dL AST (14-36) U/L ALT (4-34) U/L Alkaline Phosphatase (38-126) U/L Total Protein (6.3-8.2) g/dL Albumin (3.5-5.0) g/dL Disposition Clinical Impression: Hyperglycemia, Weakness Disposition: HOME SELF-CARE Condition: Stable Instructions (If sedation given, give patient instructions): Acute Nausea and Vomiting (ED) Additional Instructions: Please return to the Emergency Department if symptoms worsen or any other concerns. Is patient prescribed a controlled substance at d/c from ED?: No Referrals: Guillermo Cerda MD [Primary Care Provider] - 1-2 days Time of Disposition: 12:48
[2023-10-27] MEDS: ONDANSETRON 4 MG/2 ML VIAL IVP STA (11:59)
[2023-10-27 12:31] LABS: Glucose,Whole Blood 223 mg/dL (70-110)
[2023-10-27 13:35] VITALS: BP 152/82; PULSE 79
== END 2023-10-27 13:35 | disposition home or self-care (01) ==
LOC: EC 11:04
DX: R73.9 Hyperglycemia, unspecified (principal); R53.1 Weakness; F17.290 Nicotine dependence, other tobacco product, uncomplicated; Z88.8 Allergy status to other drugs, medicaments and biological substances
CPT/HCPCS: 36415; 80053; 85025; 71046; 99285; 96374; 96361; J2405

== ENCOUNTER 2023-10-30 20:51 | Emergency (ER) | payer MEDICARE ==
[2023-10-30 21:04] VITALS: RESP 18; TEMP 98.3
--- NOTE | 2023-10-30 22:05 | ED ---
Neck Injury/Pain HPI - General Chief Complaint: Neck Pain/Injury Stated Complaint: Back Pain Time Seen by Provider: 10/30/23 21:10 Source: RN notes reviewed, old records reviewed Mode of arrival: EMS Limitations: no limitations - History of Present Illness Initial Comments: This is a 53-year-old female to ER for evaluation of neck pain persistent neck p ain here in the emergency room with history of arthritis multiple evaluations for similar pain here in this emergency department MD Complaint: neck pain -: month(s) Place: home Radiation: right lateral, left lateral Severity: mild, moderate Severity scale (1-10): 3 Quality: sharp Consistency: intermittent Improves With: none - Related Data Home Medications Medication Instructions Recorded Confirmed Atorvastatin [Lipitor] 80 mg PO HS 06/25/19 07/30/23 lisinopriL 40 mg PO DAILY 09/24/20 07/30/23 traZODone HCL 50 mg PO HS PRN 01/11/21 07/30/23 Ergocalciferol (Vitamin D2) 1,250 mcg PO TU 03/03/21 07/30/23 [Drisdol (50,000 Iu)] Esomeprazole Magnesium [NexIUM] 20 mg PO DAILY 01/30/22 07/30/23 INSULIN ASPART (NovoLOG) [NovoLOG 20 unit SQ AC-TID 11/26/22 07/30/23 (formulary)] Albuterol Inhaler [Ventolin Hfa 2 puff INHALATION RT-QID 03/01/23 07/30/23 Inhaler] Insulin Glargine,Hum.rec.anlog 30 units SQ HS 07/30/23 07/30/23 [Lantus Solostar Pen] Previous Rx's Medication Instructions Recorded amLODIPine [Norvasc] 10 mg PO DAILY #30 tab 03/11/23 hydrALAZINE HCL [Apresoline] 25 mg PO BID #60 tab 03/11/23 Acetaminophen Tab [Tylenol] 650 mg PO Q6H #30 tab 05/15/23 Ibuprofen [Motrin] 600 mg PO Q8HR PRN #30 tab 05/15/23 Cephalexin [Keflex] 500 mg PO QID #30 cap 08/01/23 Azithromycin [Zithromax] 500 mg PO DAILY #5 tab 10/11/23 Benzonatate [Tessalon Perles] 100 mg PO TID PRN #15 capsule 10/11/23 Bacitracin/Polymyx Oint 1 applic TOPICAL BID #10 gm 10/17/23 [Polysporin Oint] Cephalexin [Keflex] 500 mg PO Q12HR 7 Days #14 cap 10/20/23 Sulfamethox-Tmp 800-160Mg [Bactrim 1 tab PO Q12HR 7 Days #14 tab 10/20/23 DS 800-160 mg] Allergies Allergy/AdvReac Type Severity Reaction Status Date / Time levofloxacin [From Levaquin] Allergy Rash/Hives Verified 10/20/23 18:35 Review of Systems ROS Statement: Those systems with pertinent positive or pertinent negative responses have been documented in the HPI. ROS Other: All systems not noted in ROS Statement are negative. Past Medical History Past Medical History: Diabetes Mellitus, GERD/Reflux, Hyperlipidemia, Hypertension, Syncope Additional Past Medical History / Comment(s): Pt recently admitted to [facility] on 07/21/21 with uncontrolled IDDM and hyperkalemia. Other hx: Recurrent pancreatitis, hypertriglyceridemia, elevated lipase, IDDM type II, UTI, chronic low back pain, bulging discs, dental abscesses in past. History of Any Multi-Drug Resistant Organisms: MRSA Date of last positivie culture/infection: 03/01/23 MDRO Source:: Abdomen Past Surgical History: Tubal Ligation Additional Past Surgical History / Comment(s): Age 7 had VSD repair, tumor removal 03/2023 Past Anesthesia/Blood Transfusion Reactions: No Reported Reaction Past Psychological History: No Psychological Hx Reported Smoking Status: Former smoker, Second hand smoke exposure, Vaper Past Alcohol Use History: None Reported Past Drug Use History: None Reported - Past Family History Mother Family Medical History: No Reported History Additional Family Medical History / Comment(s): Mother was healthy. She is , pt cannot recall cause of . Father Family Medical History: Pneumonia Additional Family Medical History / Comment(s): Father at the age of 67yrs from pneumonia General Exam General appearance: alert, in no apparent distress Head exam: Present: atraumatic, normocephalic, normal inspection Eye exam: Present: normal appearance, PERRL, EOMI. Absent: scleral icterus, conjunctival injection, periorbital swelling ENT exam: Present: normal exam, mucous membranes moist Neck exam: Present: normal inspection. Absent: tenderness, meningismus, lymphadenopathy Respiratory exam: Present: normal lung sounds bilaterally. Absent: respiratory distress, wheezes, rales, rhonchi, stridor Cardiovascular Exam: Present: regular rate, normal rhythm, normal heart sounds. Absent: systolic murmur, diastolic murmur, rubs, gallop, clicks GI/Abdominal exam: Present: soft, normal bowel sounds. Absent: distended, tenderness, guarding, rebound, rigid Extremities exam: Present: normal inspection, full ROM, normal capillary refill. Absent: tenderness, pedal edema, joint swelling, calf tenderness Back exam: Present: normal inspection Neurological exam: Present: alert, oriented X3, CN II-XII intact Psychiatric exam: Present: normal affect, normal mood Skin exam: Present: warm, dry, intact, normal color. Absent: rash Course Vital Signs 10/30/23 10/30/23 21:01 22:49 Temperature 98.3 F Pulse Rate 77 75 Respiratory 18 18 Rate Blood Pressure 117/74 135/81 O2 Sat by Pulse 85 L 96 Oximetry - Reevaluation(s) Reevaluation #1: Medical records reviewed Reevaluation #2: Symptoms unchanged Reevaluation #3: Patient informed of results questions answered Reevaluation #4: Was pt. sent in by a medical professional or institution (, PA, IMPLANT COORDINATOR, urgent care, hospital, or custodial...) When possible be specific @ -no Did you speak to anyone other than the patient for history (EMS, parent, family, police, friend...)? What history was obtained from this source @ -no Did you review nursing and triage notes (agree or disagree)? Why? @ -agree Are old charts reviewed (outside hosp., previous admission, EMS record, old EKG, old radiological studies, urgent care reports/EKG's, custodial records)? Report findings @ -yes Differential Diagnosis (chest pain, altered mental status, abdominal pain women, abdominal pain men, vaginal bleeding, weakness, fever, dyspnea, syncope, headache, dizziness, GI bleed, back pain, seizure, CVA, palpatations, mental health, musculoskeletal)? @ -prior EKG interpreted by me (3pts min.). @ -no X-rays interpreted by me (1pt min.). @ -no CT interpreted by me (1pt min.). @ -no U/S interpreted by me (1pt. min.). @ -no What testing was considered but not performed or refused? (CT, X-rays, U/S, labs)? Why? @ -none What meds were considered but not given or refused? Why? @ -none Did you discuss the management of the patient with other professionals (professionals i.e. Dr., PA, IMPLANT COORDINATOR, lab, RT, psych nurse, social sciences lecturer, inpatient nursing aide, teacher, v/stol landing signal officer, case management assistant)? Give summary @ -no Was smoking cessation discussed for >3mins.? @ -no Was critical care preformed (if so, how long)? @ -no Were there social determinants of health that impacted care today? How? (Homelessness, low income, unemployed, alcoholism, drug addiction, transportation, low edu. Level, literacy, decrease access to med. care, fpc, rehab)? @ -none Was there de-escalation of care discussed even if they declined (Discuss DNR or withdrawal of care, Hospice)? DNR status @ -no What co-morbidities impacted this encounter? (DM, HTN, Smoking, COPD, CAD, Cancer, CVA, ARF, Chemo, Hep., AIDS, mental health diagnosis, sleep apnea, morbid obesity)? @ -none Was patient admitted / discharged? Hospital course, mention meds given and route, prescriptions, significant lab abnormalities, going to OR and other pertinent info. @ - 53 female to ER for evaluation of neck pain recurrent evaluation of neck pain pain is controlled patient can be discharged home Discharge Undiagnosed new problem with uncertain prognosis? @ -no Drug Therapy requiring intensive monitoring for toxicity (Heparin, Nitro, Ins ulin, Cardizem)? @ -no Were any procedures done? @ -no Diagnosis/symptom? @ -Pain Acute, or Chronic, or Acute on Chronic? @ -Acute Uncomplicated (without systemic symptoms) or Complicated (systemic symptoms)? @ -Complicated Side effects of treatment? @ -no Exacerbation, Progression, or Severe Exacerbation? @ -exacerbation Poses a threat to life or bodily function? How? (Chest pain, [place], [place], pneumonia, PE, COPD, DKA, ARF, appy, cholecystitis, CVA, Diverticulitis, Homicidal, Suicidal, threat to staff... and all critical care pts) @ -no Medical Decision Making - Medical Decision Making 53 female to ER for evaluation of neck pain recurrent evaluation of neck pain pain is controlled patient can be discharged home Disposition Clinical Impression: Strain of neck muscle, Osteoarthritis, Neck pain Disposition: DC/TRNS W/I HOSP TO SNF SWING Condition: Fair Instructions (If sedation given, give patient instructions): Cervical Strain (ED), Cervical Sprain (ED) Is patient prescribed a controlled substance at d/c from ED?: No Referrals: Guillermo Cerda MD [Primary Care Provider] - 1-2 days Time of Disposition: 22:00
[2023-10-30] MEDS: CYCLOBENZAPRINE 10MG STARTER 3 TAB BTL PO STA (22:21)
[2023-10-30] MEDS: IBUPROFEN 600 MG STARTER PACK 4 TAB BTL PO STA (22:21)
[2023-10-30] MEDS: traMADol 50 MG TAB PO STA (22:22)
[2023-10-30] MEDS: KETOROLAC 15 MG/ML 1 ML VIAL IM STA (22:22)
[2023-10-30 22:51] VITALS: BP 135/81; PULSE 75
== END 2023-10-30 22:50 | disposition swing bed (61) ==
LOC: EC 20:51
DX: S16.1XXA Strain of muscle, fascia and tendon at neck level, initial encounter (principal); M19.90 Unspecified osteoarthritis, unspecified site; Z77.22 Contact with and (suspected) exposure to environmental tobacco smoke (acute) (chronic); Z88.1 Allergy status to other antibiotic agents; X58.XXXA Exposure to other specified factors, initial encounter
CPT/HCPCS: 99284; 96372; J1885

== ENCOUNTER 2023-11-05 12:07 | Emergency (ER) | payer MEDICARE ==
[2023-11-05 12:22] VITALS: RESP 18; TEMP 98.9
[2023-11-05] MEDS: LIDOCAINE 2% INJ 20 MG/ML (20 ML MDV) SQ STA (12:46)
--- NOTE | 2023-11-05 13:07 | XR ---
EXAMINATION TYPE: XR chest 2V DATE OF EXAM: 11/05/2023 COMPARISON: 10/27/2023 HISTORY: Shortness of breath TECHNIQUE: Frontal and lateral views of the chest are obtained. FINDINGS: Scattered senescent parenchymal changes noted. Hyperinflation compatible with COPD. No evidence for infiltrate. No evidence for atelectasis. Heart size is stable. Mediastinal structures are stable and grossly unremarkable. No evidence for hilar prominence. Degenerative changes dorsal spine. IMPRESSION: 1. No evidence for acute pulmonary disease.
[2023-11-05 13:38] LABS: Glucose,Whole Blood 445 mg/dL (70-110)
--- NOTE | 2023-11-05 13:50 | ED ---
General Adult HPI - General Chief complaint: Upper Respiratory Infection Stated complaint: Cough Time Seen by Provider: 11/05/23 12:35 Source: patient, EMS, RN notes reviewed, old records reviewed Mode of arrival: EMS - History of Present Illness Initial comments: Patient is a 53-year-old female presents emergency department complaining of a right leg small abscess on her anterior thigh which are recurrent. Recently had 1 which improved with antibiotics on the other leg but now she has 1 on this leg. Is also complaining of a month-long of cough, mild congestion. No known sick contacts. No other complaints. Patient is a diabetic. Did not take her insulin prior to arrival. Presents for further evaluation. Denies abdominal pain, chest pain, shortness of breath, nausea, vomiting, diarrhea. - Related Data Home Medications Medication Instructions Recorded Confirmed Atorvastatin [Lipitor] 80 mg PO HS 06/25/19 07/30/23 lisinopriL 40 mg PO DAILY 09/24/20 07/30/23 traZODone HCL 50 mg PO HS PRN 01/11/21 07/30/23 Ergocalciferol (Vitamin D2) 1,250 mcg PO TU 03/03/21 07/30/23 [Drisdol (50,000 Iu)] Esomeprazole Magnesium [NexIUM] 20 mg PO DAILY 01/30/22 07/30/23 INSULIN ASPART (NovoLOG) [NovoLOG 20 unit SQ AC-TID 11/26/22 07/30/23 (formulary)] Albuterol Inhaler [Ventolin Hfa 2 puff INHALATION RT-QID 03/01/23 07/30/23 Inhaler] Insulin Glargine,Hum.rec.anlog 30 units SQ HS 07/30/23 07/30/23 [Lantus Solostar Pen] Previous Rx's Medication Instructions Recorded amLODIPine [Norvasc] 10 mg PO DAILY #30 tab 03/11/23 hydrALAZINE HCL [Apresoline] 25 mg PO BID #60 tab 03/11/23 Acetaminophen Tab [Tylenol] 650 mg PO Q6H #30 tab 05/15/23 Ibuprofen [Motrin] 600 mg PO Q8HR PRN #30 tab 05/15/23 Cephalexin [Keflex] 500 mg PO QID #30 cap 08/01/23 Azithromycin [Zithromax] 500 mg PO DAILY #5 tab 10/11/23 Benzonatate [Tessalon Perles] 100 mg PO TID PRN #15 capsule 10/11/23 Bacitracin/Polymyx Oint 1 applic TOPICAL BID #10 gm 10/17/23 [Polysporin Oint] Cephalexin [Keflex] 500 mg PO Q12HR 7 Days #14 cap 10/20/23 Sulfamethox-Tmp 800-160Mg [Bactrim 1 tab PO Q12HR 7 Days #14 tab 10/20/23 DS 800-160 mg] Cephalexin [Keflex] 500 mg PO Q12HR 7 Days #14 cap 11/05/23 Sulfamethox-Tmp 800-160Mg [Bactrim 1 tab PO Q12HR 7 Days #14 tab 11/05/23 DS 800-160 mg] Allergies Allergy/AdvReac Type Severity Reaction Status Date / Time levofloxacin [From Levaquin] Allergy Rash/Hives Verified 10/20/23 18:35 Review of Systems ROS Statement: Those systems with pertinent positive or pertinent negative responses have been documented in the HPI. Review of Systems: CONST: Denies fever EYES: Denies blurry vision ENT: Endorses nasal congestion, mild nonproductive cough. C/V: Denies Chest pain RESP: Denies shortness of breath GI: Denies abdominal pain : Denies dysuria SKIN: Endorses right anterior thigh abscess MSK: Denies joint pain. NEURO: Denies headache ROS Other: All systems not noted in ROS Statement are negative. Past Medical History Past Medical History: Diabetes Mellitus, GERD/Reflux, Hyperlipidemia, Hypertension, Syncope Additional Past Medical History / Comment(s): Pt recently admitted to [facility] on 07/21/21 with uncontrolled IDDM and hyperkalemia. Other hx: Recurrent pancreatitis, hypertriglyceridemia, elevated lipase, IDDM type II, UTI, chronic low back pain, bulging discs, dental abscesses in past. History of Any Multi-Drug Resistant Organisms: MRSA Date of last positivie culture/infection: 03/01/23 MDRO Source:: Abdomen Past Surgical History: Tubal Ligation Additional Past Surgical History / Comment(s): Age 7 had VSD repair, tumor removal 03/2023 Past Anesthesia/Blood Transfusion Reactions: No Reported Reaction Past Psychological History: No Psychological Hx Reported Smoking Status: Former smoker, Second hand smoke exposure, Vaper Past Alcohol Use History: None Reported Past Drug Use History: None Reported - Past Family History Mother Family Medical History: No Reported History Additional Family Medical History / Comment(s): Mother was healthy. She is , pt cannot recall cause of . Father Family Medical History: Pneumonia Additional Family Medical History / Comment(s): Father at the age of 67yrs from pneumonia General Exam - General Exam Comments Initial Comments: General: Appears in no acute distress. HEAD: Normal with no signs of head trauma. EYES: EOMI. ENT: Hearing grossly intact. RESPIRATORY: No respiratory distress. No hypoxia. No increased work of breathing. C/V: Regular rate and rhythm. ABD: Abdomen is nondistended. EXT: No obvious deformity. SKIN: Uncomplicated right anterior thigh abscess. Different location than previous exit abscess that I diagnosed the patient with a few weeks ago. Obvious discharge. Fluctuant. No significant surrounding erythema. NEURO: Alert and oriented. Course Vital Signs 11/05/23 12:09 Temperature 98.9 F Pulse Rate 74 Respiratory 18 Rate Blood Pressure 127/75 O2 Sat by Pulse 96 Oximetry Medical Decision Making - Medical Decision Making Was pt. sent in by a medical professional or institution (ROSALIE Flaherty, [employer]TEN[employer] DESIGN ENGINEER, urgent care, hospital, or alf...) When possible be specific @ -No Did you speak to anyone other than the patient for history (EMS, parent, family, police, friend...)? What history was obtained from this source @ -No Did you review nursing and triage notes (agree or disagree)? Why? @ -I reviewed and agree with nursing and triage notes Were old charts reviewed (outside hosp., previous admission, EMS record, old EKG, old radiological studies, urgent care reports/EKG's, alf records)? Report findings @ -Old charts reviewed from October 2023 when I evaluated the patient and discharge her home with antibiotics for a leg abscess. This was on her left leg. Differential Diagnosis (chest pain, altered mental status, abdominal pain women, abdominal pain men, vaginal bleeding, weakness, fever, dyspnea, syncope, headache, dizziness, GI bleed, back pain, seizure, CVA, palpatations, mental health, musculoskeletal)? @ -Cellulitis, abscess, URI, COVID, flu, pneumonia. This list is not all inc lusive. EKG interpreted by me (3pts min.). @ -None done X-rays interpreted by me (1pt min.). @ -Chest x-ray reveals no obvious acute cardiopulmonary process. CT interpreted by me (1pt min.). @ -None done U/S interpreted by me (1pt. min.). @ -None done What testing was considered but not performed or refused? (CT, X-rays, U/S, labs)? Why? @ -None What meds were considered but not given or refused? Why? @ -None Did you discuss the management of the patient with other professionals (professionals i.e. , PA, ANTENNA DESIGN ENGINEER, lab, RT, psych nurse, criminal justice social worker, fast food crew lead, teacher, disability insurance hearing officer, case picker)? Give summary @ -No Was smoking cessation discussed for >3mins.? @ -No Was critical care preformed (if so, how long)? @ -No Were there social determinants of health that impacted care today? How? (Homelessness, low income, unemployed, alcoholism, drug addiction, transportation, low edu. Level, literacy, decrease access to med. care, detention, rehab)? @ -No Was there de-escalation of care discussed even if they declined (Discuss DNR or withdrawal of care, Hospice)? DNR status @ -No What co-morbidities impacted this encounter? (DM, HTN, Smoking, COPD, CAD, Cancer, CVA, ARF, Chemo, Hep., AIDS, mental health diagnosis, sleep apnea, morbid obesity)? @ -Diabetes Was patient admitted / discharged? Hospital course, mention meds given and route, prescriptions, significant lab abnormalities, going to OR and other pertinent info. @ -Patient presents emergency department complaining of right thigh abscess as well as upper respiratory symptoms. Will obtain chest x-ray, viral swabs. Inci randolph and drainage completed of the right anterior thigh. Patient tolerated procedure well. Purulent discharge obtained. Wound was cleaned and covered with gauze. Patient started on antibiotics. Accu-Chek is elevated and patient given a dose of NovoLog. Vital signs otherwise within acceptable limits. Viral swabs negative. Chest x-ray unremarkable. I did the patient. She is feeling improved. Recommended follow-up with Dr. Cerda. She will be discharged home on antibiotics. Patient was in agreement this plan. I will provide the patient with a prescription for Bactrim and Keflex. I instructed the patient to follow up with their PCP in the next 1-3 days.. I explained that the patient should return to the emergency department if they experience any worsening symptoms. Strict return precautions were discussed with the patient. The patient expressed understanding of these instructions. I answered all questions that the patient had. The patient was discharged home in good condition with their prescriptions and follow up information. Undiagnosed new problem with uncertain prognosis? @ -No Drug Therapy requiring intensive monitoring for toxicity (Heparin, Nitro, Insulin, Cardizem)? @ -No Were any procedures done? @ -No Diagnosis/symptom? @ -Leg abscess, URI Acute, or Chronic, or Acute on Chronic? @ -Acute Uncomplicated (without systemic symptoms) or Complicated (systemic symptoms)? @ -Uncomplicated Side effects of treatment? @ -No Exacerbation, Progression, or Severe Exacerbation? @ -No Poses a threat to life or bodily function? How? (Chest pain, USA, [place], pneumonia, PE, COPD, DKA, ARF, appy, cholecystitis, CVA, Diverticulitis, Homicidal, Suicidal, threat to staff... and all critical care pts) @ -No - Lab Data Lab Results 11/05/23 11/05/23 Range/Units 12:49 13:36 POC Glucose (mg/dL) 445 H (70-110) mg/dL POC Glu Car Stower ID Cresencio Leiva Influenza Type A (PCR) Not Detected (Not Detectd) Influenza Type B (PCR) Not Detected (Not Detectd) RSV (PCR) Not Detected (Not Detectd) SARS-CoV-2 (PCR) Not Detected (Not Detectd) Disposition Clinical Impression: URI (upper respiratory infection), Cellulitis, Leg abscess Disposition: HOME SELF-CARE Condition: Good Instructions (If sedation given, give patient instructions): Abscess Incision and Drainage (ED), Upper Respiratory Infection (ED), Abscess (ED) Prescriptions: Sulfamethox-Tmp 800-160Mg [Bactrim DS 800-160 mg] 1 tab PO Q12HR 7 Days #14 tab Cephalexin [Keflex] 500 mg PO Q12HR 7 Days #14 cap Is patient prescribed a controlled substance at d/c from ED?: No Referrals: Guillermo Cerda MD [Primary Care Provider] - 1-2 days Time of Disposition: 13:49
[2023-11-05] MEDS: CEPHALEXIN 500 MG CAP PO STA (14:01)
[2023-11-05] MEDS: SULFAMETHOX-TMP 800-160MG 1 EACH TAB PO STA (14:01)
[2023-11-05] MEDS: INSULIN ASPART (NovoLOG) 100 UNIT/ML VIAL SQ ONE (14:03)
[2023-11-05 14:07] VITALS: BP 126/89; PULSE 70
== END 2023-11-05 14:07 | disposition home or self-care (01) ==
LOC: EC 12:07
DX: J06.9 Acute upper respiratory infection, unspecified (principal); L02.415 Cutaneous abscess of right lower limb; E11.9 Type 2 diabetes mellitus without complications; F17.290 Nicotine dependence, other tobacco product, uncomplicated; Z88.1 Allergy status to other antibiotic agents; Z79.4 Long term (current) use of insulin; Z79.899 Other long term (current) drug therapy
CPT/HCPCS: 99283 ×2; 36415; 87636; 71046; J2001

== ENCOUNTER 2023-11-07 11:25 | Emergency (ER) | payer MEDICARE ==
--- NOTE | 2023-11-07 11:38 | ED ---
Recheck HPI - General Source: patient, RN notes reviewed Mode of arrival: ambulatory Limitations: no limitations <Catalina Veras - Last Filed: 11/07/23 11:36> <Shalini Gray - Last Filed: 11/08/23 00:22> - General Chief Complaint: Upper Respiratory Infection Stated Complaint: cough Time Seen by Provider: 11/07/23 11:37 - History of Present Illness Initial Comments: Quick Note: This is a 53-year-old female who presents to the emergency department for coughing, nausea, and vomiting. States that the cough has been a chronic and ongoing issue for over a month. However, last night she started vomiting. She still feels nauseous. Currently taking Bactrim and Keflex for an abscess on her leg. (Catalina Veras) - Related Data Home Medications Medication Instructions Recorded Confirmed Atorvastatin [Lipitor] 80 mg PO HS 06/25/19 07/30/23 lisinopriL 40 mg PO DAILY 09/24/20 07/30/23 traZODone HCL 50 mg PO HS PRN 01/11/21 07/30/23 Ergocalciferol (Vitamin D2) 1,250 mcg PO TU 03/03/21 07/30/23 [Drisdol (50,000 Iu)] Esomeprazole Magnesium [NexIUM] 20 mg PO DAILY 01/30/22 07/30/23 INSULIN ASPART (NovoLOG) [NovoLOG 20 unit SQ AC-TID 11/26/22 07/30/23 (formulary)] Albuterol Inhaler [Ventolin Hfa 2 puff INHALATION RT-QID 03/01/23 07/30/23 Inhaler] Insulin Glargine,Hum.rec.anlog 30 units SQ HS 07/30/23 07/30/23 [Lantus Solostar Pen] Previous Rx's Medication Instructions Recorded amLODIPine [Norvasc] 10 mg PO DAILY #30 tab 03/11/23 hydrALAZINE HCL [Apresoline] 25 mg PO BID #60 tab 03/11/23 Acetaminophen Tab [Tylenol] 650 mg PO Q6H #30 tab 05/15/23 Ibuprofen [Motrin] 600 mg PO Q8HR PRN #30 tab 05/15/23 Cephalexin [Keflex] 500 mg PO QID #30 cap 08/01/23 Azithromycin [Zithromax] 500 mg PO DAILY #5 tab 10/11/23 Benzonatate [Tessalon Perles] 100 mg PO TID PRN #15 capsule 10/11/23 Bacitracin/Polymyx Oint 1 applic TOPICAL BID #10 gm 10/17/23 [Polysporin Oint] Cephalexin [Keflex] 500 mg PO Q12HR 7 Days #14 cap 10/20/23 Sulfamethox-Tmp 800-160Mg [Bactrim 1 tab PO Q12HR 7 Days #14 tab 10/20/23 DS 800-160 mg] Cephalexin [Keflex] 500 mg PO Q12HR 7 Days #14 cap 11/05/23 Sulfamethox-Tmp 800-160Mg [Bactrim 1 tab PO Q12HR 7 Days #14 tab 11/05/23 DS 800-160 mg] Ondansetron Odt [Zofran Odt] 4 mg PO Q8HR PRN #20 tab 11/07/23 Allergies Allergy/AdvReac Type Severity Reaction Status Date / Time levofloxacin [From Levaquin] Allergy Rash/Hives Verified 11/07/23 12:58 Review of Systems ROS Other: All systems not noted in ROS Statement are negative. <Catalina Veras - Last Filed: 11/07/23 11:36> ROS Other: All systems not noted in ROS Statement are negative. <Shalini Gray - Last Filed: 11/08/23 00:22> ROS Statement: Those systems with pertinent positive or pertinent negative responses have been documented in the HPI. Past Medical History Past Medical History: Diabetes Mellitus, GERD/Reflux, Hyperlipidemia, Hypertension, Syncope Additional Past Medical History / Comment(s): Pt recently admitted to [facility] on 07/21/21 with uncontrolled IDDM and hyperkalemia. Other hx: Recurrent pancreatitis, hypertriglyceridemia, elevated lipase, IDDM type II, UTI, chronic low back pain, bulging discs, dental abscesses in past. History of Any Multi-Drug Resistant Organisms: MRSA Date of last positivie culture/infection: 03/01/23 MDRO Source:: Abdomen Past Surgical History: Tubal Ligation Additional Past Surgical History / Comment(s): Age 7 had VSD repair, tumor removal 03/2023 Past Anesthesia/Blood Transfusion Reactions: No Reported Reaction Past Psychological History: No Psychological Hx Reported Smoking Status: Former smoker, Second hand smoke exposure, Vaper Past Alcohol Use History: None Reported Past Drug Use History: None Reported - Past Family History Mother Family Medical History: No Reported History Additional Family Medical History / Comment(s): Mother was healthy. She is dece ased, pt cannot recall cause of . Father Family Medical History: Pneumonia Additional Family Medical History / Comment(s): Father at the age of 67yrs from pneumonia <Catalina Veras - Last Filed: 11/07/23 11:36> General Exam <Catalina Veras - Last Filed: 11/07/23 11:36> <Shalini Gray - Last Filed: 11/08/23 00:22> - General Exam Comments Initial Comments: Visual Physical Exam Vital signs reviewed General: Well-appearing, nontoxic, no acute distress. Head: Normocephalic, atraumatic Eyes: PERRLA, EOMI ENT: Airway patent Chest: Nonlabored breathing Skin: No visual rash, normal skin tone Neuro: Alert and oriented 3 Musculoskeletal: No gross abnormalities (Catalina Veras) Physical Exam GENERAL: Patient is well-developed and well-nourished. Patient is nontoxic and well-hydrated and is in no distress. HENT: Normocephalic, Atraumatic. EYES: PERRL, EOMI PULMONARY: Expiratory wheeze CARDIOVASCULAR: RRR Warm and well perfused extremities ABDOMEN: Non-distended SKIN: No rashes or bruising : Deferred NEUROLOGIC: Alert and oriented Normal speech MUSCULOSKELETAL: Moving all extremities with no apparent injury PSYCHIATRIC: No SI/HI (Shalini Gray) Course Vital Signs 11/07/23 11/07/23 11/07/23 12:55 18:02 18:08 Temperature 98.8 F Pulse Rate 72 72 76 Respiratory 16 Rate Blood Pressure 117/72 O2 Sat by Pulse 96 Oximetry 11/07/23 18:18 Temperature 98.9 F Pulse Rate 73 Respiratory 21 Rate Blood Pressure 126/84 O2 Sat by Pulse 96 Oximetry Medical Decision Making <Catalina Veras - Last Filed: 11/07/23 11:36> - Lab Data Result diagrams: 11/07/23 13:11 11/07/23 13:11 <Shalini Gray P - Last Filed: 11/08/23 00:22> - Medical Decision Making I performed the QuickNote portion of this chart. Signed Catalina Veras PA-C. (Catalina Veras) Was pt. sent in by a medical professional or institution (ROSALIE Flaherty, CAR PARKER, urgent care, hospital, or shelter...) When possible be specific @ -No Did you speak to anyone other than the patient for history (EMS, parent, family, police, friend...)? What history was obtained from this source @ -No Did you review nursing and triage notes (agree or disagree)? Why? @ -I reviewed and agree with nursing and triage notes Were old charts reviewed (outside hosp., previous admission, EMS record, old EKG, old radiological studies, urgent care reports/EKG's, shelter records)? Report findings @ -No old charts were reviewed Differential Diagnosis (chest pain, altered mental status, abdominal pain women, abdominal pain men, vaginal bleeding, weakness, fever, dyspnea, syncope, headache, dizziness, GI bleed, back pain, seizure, CVA, palpatations, mental health)? @ -Not applicable EKG interpreted by me (3pts min.). @ -As above X-rays interpreted by me (1pt min.). @ -No acute findings CT interpreted by me (1pt min.). @ -None done U/S interpreted by me (1pt. min.). @ -None done What testing was considered but not performed or refused? (CT, X-rays, U/S, labs)? Why? @ -None What meds were considered but not given or refused? Why? @ -None Did you discuss the management of the patient with other professionals (professionals i.e. ROSALIE Flaherty, CAR PARKER, lab, RT, psych nurse, director social welfare, maintenance custodian, teacher, forest fire management officer, dependency case manager)? Give summary @ -No Was smoking cessation discussed for >3mins.? @ -No Was critical care preformed (if so, how long)? @ -No Were there social determinants of health that impacted care today? How? (Homele ssness, low income, unemployed, alcoholism, drug addiction, transportation, low edu. Level, literacy, decrease access to med. care, fci, rehab)? @ -No Was there de-escalation of care discussed even if they declined (Discuss DNR or withdrawal of care, Hospice)? DNR status @ -No What co-morbidities impacted this encounter? (DM, HTN, Smoking, COPD, CAD, Cancer, CVA, ARF, Chemo, Hep., AIDS, mental health diagnosis, sleep apnea, morbid obesity)? @ -None Was patient admitted / discharged? Hospital course, mention meds given and route, prescriptions, significant lab abnormalities, going to OR and other pertinent info. @ Discharged Patient seen, workup negative, feeling better after a breathing treatment, comfortable with plan for discharge home Undiagnosed new problem with uncertain prognosis? @ -No Drug Therapy requiring intensive monitoring for toxicity (Heparin, Nitro, Insulin, Cardizem)? @ -No Were any procedures done? @ -No Diagnosis/symptom? @ -URI Acute, or Chronic, or Acute on Chronic? @ -Default Uncomplicated (without systemic symptoms) or Complicated (systemic symptoms)? @ -Default Side effects of treatment? @ -No Exacerbation, Progression, or Severe Exacerbation? @ -No Poses a threat to life or bodily function? How? (Chest pain, USA, [place], pneumonia, PE, COPD, DKA, ARF, appy, cholecystitis, CVA, Diverticulitis, Homicidal, Suicidal, threat to staff... and all critical care pts) @ -No (Shalini Gray) - Lab Data Lab Results 11/07/23 11/07/23 11/07/23 Range/Units 13:11 13:11 14:01 WBC 9.9 (3.8-10.6) k/uL RBC 4.96 (3.80-5.40) m/uL Hgb 13.2 (11.4-16.0) gm/dL Hct 40.9 (34.0-46.0) % MCV 82.6 (80.0-100.0) fL MCH 26.6 (25.0-35.0) pg MCHC 32.1 (31.0-37.0) g/dL RDW 17.0 H (11.5-15.5) % Plt Count 507 H (150-450) k/uL MPV 6.7 Neutrophils % 65 % Lymphocytes % 26 % Monocytes % 5 % Eosinophils % 3 % Basophils % 1 % Neutrophils # 6.4 (1.3-7.7) k/uL Lymphocytes # 2.6 (1.0-4.8) k/uL Monocytes # 0.5 (0-1.0) k/uL Eosinophils # 0.3 (0-0.7) k/uL Basophils # 0.1 (0-0.2) k/uL Anisocytosis Slight Microcytosis Slight Sodium 135 L (137-145) mmol/L Potassium 4.7 (3.5-5.1) mmol/L Chloride 107 (98-107) mmol/L Carbon Dioxide 15 L (22-30) mmol/L Anion Gap 13 mmol/L BUN 16 (7-17) mg/dL Creatinine 0.66 (0.52-1.04) mg/dL Est GFR (CKD-EPI)AfAm >90 (>60 ml/min/1.73 sqM) Est GFR (CKD-EPI)NonAf >90 (>60 ml/min/1.73 sqM) Glucose 317 H (74-99) mg/dL Calcium 9.7 (8.4-10.2) mg/dL Total Bilirubin 0.6 (0.2-1.3) mg/dL AST 28 (14-36) U/L ALT 20 (4-34) U/L Alkaline Phosphatase 127 H (38-126) U/L Total Protein 6.9 (6.3-8.2) g/dL Albumin 4.0 (3.5-5.0) g/dL Urine Color Yellow Urine Appearance Cloudy H (Clear) Urine pH 6.0 (5.0-8.0) Ur Specific [place] 1.025 (1.001-1.035) Urine Protein 2+ H (Negative) Urine Glucose (UA) Trace H (Negative) Urine Ketones Negative (Negative) Urine Blood Negative (Negative) Urine Nitrite Negative (Negative) Urine Bilirubin Negative (Negative) Urine Urobilinogen <2.0 (<2.0) mg/dL Ur Leukocyte Esterase Negative (Negative) Urine RBC 1 (0-5) /hpf Urine WBC 3 (0-5) /hpf Ur Squamous Epith Cells 26 H (0-4) /hpf Urine Bacteria Rare H (None) /hpf Urine Mucus Rare H (None) /hpf Disposition <Catalina Veras - Last Filed: 11/07/23 11:36> Is patient prescribed a controlled substance at d/c from ED?: No <Shalini Gray P - Last Filed: 11/08/23 00:22> Clinical Impression: Chronic cough Disposition: HOME SELF-CARE Condition: Stable Additional Instructions: Follow up with Dr Rae about referral to lung specialist, you may benefit from having a breathing treatment machine at home Prescriptions: Ondansetron Odt [Zofran Odt] 4 mg PO Q8HR PRN #20 tab PRN Reason: Nausea Referrals: Guillermo Cerda MD [Primary Care Provider] - 1-2 days
[2023-11-07 13:42] LABS: Anisocytosis Slight; Basophils # (A) 0.1 k/uL (0-0.2); Basophils % (A) 1 %; Eosinophils # (A) 0.3 k/uL (0-0.7); Eosinophils % (A) 3 %; HCT 40.9 % (34.0-46.0); HGB 13.2 gm/dL (11.4-16.0); Lymphocytes # (A) 2.6 k/uL (1.0-4.8); Lymphocytes % (A) 26 %; MCH 26.6 pg (25.0-35.0); MCHC 32.1 g/dL (31.0-37.0); MCV 82.6 fL (80.0-100.0); Mean Platelet Volume 6.7; Microcytosis Slight; Monocytes # (A) 0.5 k/uL (0-1.0); Monocytes % (A) 5 %; Neutrophils # (A) 6.4 k/uL (1.3-7.7); Neutrophils % (A) 65 %; Platelet Count 507 k/uL (150-450); RBC 4.96 m/uL (3.80-5.40); WBC 9.9 k/uL (3.8-10.6)
[2023-11-07 14:00] LABS: ALT 20 U/L (4-34); AST 28 U/L (14-36); African American GFR (CKD) >90 (>60 ml/min/1.73 sqM); Alkaline Phosphatase 127 U/L (38-126); Anion Gap 13 mmol/L; Blood Urea Nitrogen 16 mg/dL (7-17); Calcium 9.7 mg/dL (8.4-10.2); Carbon Dioxide 15 mmol/L (22-30); Chloride 107 mmol/L (98-107); Glucose 317 mg/dL (74-99); Non-African American GFR(CKD) >90 (>60 ml/min/1.73 sqM); Potassium 4.7 mmol/L (3.5-5.1); Sodium 135 mmol/L (137-145); Total Bilirubin 0.6 mg/dL (0.2-1.3); Total Protein 6.9 g/dL (6.3-8.2)
--- NOTE | 2023-11-07 14:16 | XR ---
EXAMINATION TYPE: XR chest 2V DATE OF EXAM: 11/07/2023 COMPARISON: 11/05/2023 HISTORY: Shortness of breath TECHNIQUE: Frontal and lateral views of the chest are obtained. FINDINGS: Scattered senescent parenchymal changes noted. Hyperinflation compatible with COPD. No evidence for infiltrate. No evidence for atelectasis. Heart size is stable. Mediastinal structures are stable and grossly unremarkable. No evidence for hilar prominence. Degenerative changes dorsal spine. IMPRESSION: 1. No evidence for acute pulmonary disease.
[2023-11-07 14:35] LABS: Appearance,Urine Cloudy (Clear); Bacteria,Urine Rare /hpf; Bilirubin,Urine Negative (Negative); Blood,Urine Negative (Negative); Color,Urine Yellow; Glucose,Urine (UA) Trace (Negative); Ketones,Urine Negative (Negative); Leukocyte Esterase,Urine Negative (Negative); Mucus,Urine Rare /hpf; Nitrite,Urine Negative (Negative); Protein,Urine 2+ (Negative); RBC,Urine 1 /hpf (0-5); Specific Gravity,Urine 1.025 (1.001-1.035); Squamous Epithelial Cell,Urine 26 /hpf (0-4); Urobilinogen,Urine <2.0 mg/dL (<2.0); WBC,Urine 3 /hpf (0-5)
[2023-11-07] MEDS: ALBUTEROL NEBULIZED 2.5 MG/3 ML INHALATION STA (18:00)
[2023-11-07 18:20] VITALS: BP 126/84; PULSE 73; RESP 21; TEMP 98.9
== END 2023-11-07 18:22 | disposition home or self-care (01) ==
LOC: EC 11:25
DX: G89.29 Other chronic pain (principal); R05.9 Cough, unspecified; J06.9 Acute upper respiratory infection, unspecified; F17.290 Nicotine dependence, other tobacco product, uncomplicated; Z88.1 Allergy status to other antibiotic agents; Z87.440 Personal history of urinary (tract) infections
CPT/HCPCS: 36415; 71046; 80053; 81001; 85025; 94640; 99284

== ENCOUNTER 2023-11-18 13:56 | Emergency (ER) | payer MEDICARE ==
[2023-11-18] MEDS ORDERED: CYCLOBENZAPRINE 10 MG TAB ONE (15:08)
[2023-11-18] MEDS ORDERED: KETOROLAC 15 MG/ML 1 ML VIAL ONE (15:08)
== END 2023-11-18 15:20 | disposition home or self-care (01) ==
LOC: EC 13:56
CPT/HCPCS: 96372; 99282

== ENCOUNTER 2023-11-26 16:44 | Observation (INO) | payer MEDICARE, OTHER ==
[~2023-11-26 16:44] MED LIST changes: +DEXTROSE IVPB ONE; +HYDROmorphone 1 MG/ML 1 ML SYRINGE ONE; +INSULIN REGULAR 100 UNIT/ML VIAL (IV) ONE; +KETOROLAC 15 MG/ML 1 ML VIAL ONE; +MAGNESIUM OXIDE 400 MG TAB ONE; +MAGNESIUM SULFATE IVPB ONE; +MAGNESIUM SULFATE-D5W PMX 100 ML IVPB ONE; +SODIUM CHLORIDE 0.9% 1,000 ML BAG ONE; -SODIUM CHLORIDE 0.9% 1,000 ML IV STA; -SODIUM CHLORIDE 0.9% 500 ML 500 ML IV STA; +SODIUM CHLORIDE 0.9% 500 ML BAG ONE
[2023-11-26] MEDS ORDERED: MAGNESIUM SULFATE-D5W PMX 100 ML IVPB ONE (17:25)
[2023-11-26] MEDS ORDERED: INSULIN ASPART (NovoLOG) 100 UNIT/ML VIAL SQ ONE (17:57)
[2023-11-26] MEDS ORDERED: cefTRIAXone 2 GM VIAL ONE (18:45)
[2023-11-26] MEDS ORDERED: SODIUM CHLORIDE 0.9% 250 ML BAG ONE (18:50)
[2023-11-26] MEDS ORDERED: SODIUM CHLORIDE 0.9% 100 ML BAG ONE (18:50)
[2023-11-26] MEDS ORDERED: MORPHINE SULFATE 4 MG/ML SYRINGE ONE (19:28)
[2023-11-26] MEDS ORDERED: AZITHROMYCIN 500 MG VIAL IVPB ONE (20:14)
[2023-11-27] MEDS ORDERED: traZODone HCL 50 MG TAB ONE ×2 (01:25→22:09)
[2023-11-27] MEDS ORDERED: ACETAMINOPHEN TAB 325 MG TAB ONE (01:25)
[2023-11-27] MEDS ORDERED: ATORVASTATIN 80 MG TAB ONE ×2 (01:25→22:09)
[2023-11-27] MEDS ORDERED: hydrALAZINE HCL 25 MG TAB ONE ×2 (01:25→09:22)
[2023-11-27] MEDS ORDERED: KETOROLAC 15 MG/ML 1 ML VIAL ONE (01:33)
[2023-11-27] MEDS ORDERED: PANTOPRAZOLE 40 MG TABLET PO ONE (09:22)
[2023-11-27] MEDS ORDERED: amLODIPine 10 MG TAB ONE (09:22)
[2023-11-27] MEDS ORDERED: lisinopriL 20 MG TAB ONE (09:23)
[2023-11-27] MEDS ORDERED: MORPHINE SULFATE 4 MG/ML SYRINGE ONE ×3 (09:23→19:57)
[2023-11-27] MEDS ORDERED: AZITHROMYCIN 500 MG TAB ONE ×2 (10:23→22:11)
[2023-11-27] MEDS ORDERED: cefTRIAXone 2 GM VIAL ONE (10:23)
[2023-11-27] MEDS ORDERED: INSULIN ASPART (NovoLOG) 100 UNIT/ML VIAL SQ ONE ×2 (15:28→22:10)
[2023-11-28] MEDS ORDERED: MORPHINE SULFATE 4 MG/ML SYRINGE ONE ×3 (00:16→10:06)
[2023-11-28] MEDS ORDERED: INSULIN DETEMIR (LEVEMIR) 100 UNIT/ML SYR SQ ONE (08:00)
[2023-11-28] MEDS ORDERED: SODIUM CHLORIDE 0.9% 250 ML BAG ONE (08:00)
[2023-11-28] MEDS ORDERED: PANTOPRAZOLE 40 MG TABLET PO ONE (09:18)
[2023-11-28] MEDS ORDERED: AZITHROMYCIN 500 MG TAB ONE (09:18)
[2023-11-28] MEDS ORDERED: INSULIN ASPART (NovoLOG) 100 UNIT/ML VIAL SQ ONE ×2 (09:19→12:27)
--- NOTE | 2023-12-24 09:36 | XR ---
Dayna Le ID: [id number] : 1970 EXAMINATION TYPE: XR chest 2V DATE OF EXAM: 11/26/2023 COMPARISON: 11/07/2023 HISTORY: 53-year-old female body aches, cough TECHNIQUE: PA and lateral views FINDINGS: Heart upper limits of normal in size. Mild interstitial prominence. Median sternotomy wires. There ma y be some early developing vague patchy density in the inferior lingula. Strandy atelectasis or scarr ing left mid lung is unchanged. IMPRESSION: There may be some early developing infiltrate at the inferior lingula.
== END 2023-11-28 16:29 | disposition home or self-care (01) ==
LOC: OR 16:44 → 5NMEDONC 16:45 → INTOOBSV 16:45
PROVIDERS: ADMIT Hospitalist; ATTEND Hospitalist
DX: J18.9 Pneumonia, unspecified organism (principal); E83.42 Hypomagnesemia; E11.65 Type 2 diabetes mellitus with hyperglycemia; E87.29 Other acidosis; M19.90 Unspecified osteoarthritis, unspecified site; E78.5 Hyperlipidemia, unspecified; I10 Essential (primary) hypertension; F17.290 Nicotine dependence, other tobacco product, uncomplicated; R10.13 Epigastric pain; Z79.899 Other long term (current) drug therapy; Z79.4 Long term (current) use of insulin; Z71.6 Tobacco abuse counseling
CPT/HCPCS: 71046; 96361; 96365; 96366; 96367; 96372; 96375; 96376; 99285

== ENCOUNTER 2023-11-29 01:03 | Emergency (ER) | payer MEDICARE, OTHER ==
[2023-11-29] MEDS ORDERED: HYDROmorphone 1 MG/ML 1 ML SYRINGE ONE (01:55)
== END 2023-11-29 02:42 | disposition home or self-care (01) ==
LOC: EC 01:03
CPT/HCPCS: 96372; 99283

== ENCOUNTER 2023-11-29 12:15 | Emergency (ER) | payer MEDICARE ==
[2023-11-29] MEDS ORDERED: SODIUM CHLORIDE 0.9% 1,000 ML BAG ONE (14:35)
== END 2023-11-29 19:02 | disposition home or self-care (01) ==
LOC: EC 12:15
DX: E78.5 Hyperlipidemia, unspecified (principal)
CPT/HCPCS: 96360; 99284

== ENCOUNTER 2023-12-04 17:43 | Emergency (ER) | payer MEDICARE ==
--- NOTE | 2023-12-04 17:52 | ED ---
URI HPI - General Source: patient, RN notes reviewed Mode of arrival: ambulatory Limitations: no limitations <Carmen Celestin - Last Filed: 12/04/23 17:51> <Anastasiia Ramirez - Last Filed: 12/04/23 19:46> - General Stated Complaint: cough Time Seen by Provider: 12/04/23 17:51 - History of Present Illness Initial Comments: Quick note: 53-year-old female presenting to the ER with a chief complaint of a cough. This is been ongoing for the past couple of weeks. She also is reporting a sore throat. Denies any fevers, chest pain or shortness of breath. Patient has been using cough drops for relief. (Carmen Celestin) 53-year-old female presenting with chief complaint of cough. This is a nonproductive cough that has been ongoing for the past few weeks. She is reporting some throat irritation and congestion. No fever, chest pain, difficulty breathing, nausea, vomiting, abdominal pain. She is taking cough drops as needed. (Anastasiia Ramirez) - Related Data Home Medications Medication Instructions Recorded Confirmed Atorvastatin [Lipitor] 80 mg PO HS 06/25/19 07/30/23 lisinopriL 40 mg PO DAILY 09/24/20 07/30/23 traZODone HCL 50 mg PO HS PRN 01/11/21 07/30/23 Ergocalciferol (Vitamin D2) 1,250 mcg PO TU 03/03/21 07/30/23 [Drisdol (50,000 Iu)] Esomeprazole Magnesium [NexIUM] 20 mg PO DAILY 01/30/22 07/30/23 INSULIN ASPART (NovoLOG) [NovoLOG 20 unit SQ AC-TID 11/26/22 07/30/23 (formulary)] Albuterol Inhaler [Ventolin Hfa 2 puff INHALATION RT-QID 03/01/23 07/30/23 Inhaler] Insulin Glargine,Hum.rec.anlog 30 units SQ HS 07/30/23 07/30/23 [Lantus Solostar Pen] Previous Rx's Medication Instructions Recorded amLODIPine [Norvasc] 10 mg PO DAILY #30 tab 03/11/23 hydrALAZINE HCL [Apresoline] 25 mg PO BID #60 tab 03/11/23 Acetaminophen Tab [Tylenol] 650 mg PO Q6H #30 tab 05/15/23 Ibuprofen [Motrin] 600 mg PO Q8HR PRN #30 tab 05/15/23 Cephalexin [Keflex] 500 mg PO QID #30 cap 08/01/23 Azithromycin [Zithromax] 500 mg PO DAILY #5 tab 10/11/23 Benzonatate [Tessalon Perles] 100 mg PO TID PRN #15 capsule 10/11/23 Bacitracin/Polymyx Oint 1 applic TOPICAL BID #10 gm 10/17/23 [Polysporin Oint] Cephalexin [Keflex] 500 mg PO Q12HR 7 Days #14 cap 10/20/23 Sulfamethox-Tmp 800-160Mg [Bactrim 1 tab PO Q12HR 7 Days #14 tab 10/20/23 DS 800-160 mg] Cephalexin [Keflex] 500 mg PO Q12HR 7 Days #14 cap 11/05/23 Sulfamethox-Tmp 800-160Mg [Bactrim 1 tab PO Q12HR 7 Days #14 tab 11/05/23 DS 800-160 mg] Ondansetron Odt [Zofran Odt] 4 mg PO Q8HR PRN #20 tab 11/07/23 Benzonatate [Tessalon Perles] 100 mg PO TID PRN #15 capsule 12/04/23 Allergies Allergy/AdvReac Type Severity Reaction Status Date / Time levofloxacin [From Levaquin] Allergy Rash/Hives Verified 12/04/23 17:53 Review of Systems ROS Other: All systems not noted in ROS Statement are negative. <Carmen Celestin - Last Filed: 12/04/23 17:51> ROS Other: All systems not noted in ROS Statement are negative. <Anastasiia Ramirez - Last Filed: 12/04/23 19:46> ROS Statement: Those systems with pertinent positive or pertinent negative responses have been documented in the HPI. Past Medical History Past Medical History: Diabetes Mellitus, GERD/Reflux, Hyperlipidemia, Hypertension, Syncope Additional Past Medical History / Comment(s): Pt recently admitted to [facility] on 07/21/21 with uncontrolled IDDM and hyperkalemia. Other hx: Recurrent pancreatitis, hypertriglyceridemia, elevated lipase, IDDM type II, UTI, chronic low back pain, bulging discs, dental abscesses in past. History of Any Multi-Drug Resistant Organisms: MRSA Date of last positivie culture/infection: 03/01/23 MDRO Source:: Abdomen Past Surgical History: Tubal Ligation Additional Past Surgical History / Comment(s): Age 7 had VSD repair, tumor removal 03/2023 Past Anesthesia/Blood Transfusion Reactions: No Reported Reaction Past Psychological History: No Psychological Hx Reported Smoking Status: Former smoker, Second hand smoke exposure, Vaper Past Alcohol Use History: None Reported Past Drug Use History: None Reported - Past Family History Mother Family Medical History: No Reported History Additional Family Medical History / Comment(s): Mother was healthy. She is , pt cannot recall cause of . Father Family Medical History: Pneumonia Additional Family Medical History / Comment(s): Father at the age of 67yrs from pneumonia <Carmen Celestin - Last Filed: 12/04/23 17:51> General Exam <Carmen Celestin - Last Filed: 12/04/23 17:51> Limitations: no limitations General appearance: alert, in no apparent distress Head exam: Present: atraumatic, normocephalic Eye exam: Present: normal appearance, EOMI ENT exam: Present: normal exam, normal oropharynx, mucous membranes moist Neck exam: Present: normal inspection. Absent: meningismus Respiratory exam: Present: normal lung sounds bilaterally. Absent: respiratory distress, wheezes, rales, rhonchi, stridor Cardiovascular Exam: Present: regular rate, normal rhythm, normal heart sounds. Absent: systolic murmur, diastolic murmur, rubs, gallop, clicks Neurological exam: Present: alert, oriented X3 Psychiatric exam: Present: normal affect, normal mood Skin exam: Present: warm, dry <Anastasiia Ramirez - Last Filed: 12/04/23 19:46> - General Exam Comments Initial Comments: Visual Physical Exam Vital signs reviewed General: Well-appearing, nontoxic, no acute distress. Head: Normocephalic, atraumatic Eyes: PERRLA, EOMI ENT: Airway patent Chest: Nonlabored breathing Skin: No visual rash, normal skin tone Neuro: Alert and oriented 3 Musculoskeletal: No gross abnormalities (Carmen Celestin) Course Vital Signs 12/04/23 17:52 Temperature 98.7 F Pulse Rate 62 Respiratory 16 Rate Blood Pressure 148/79 O2 Sat by Pulse 97 Oximetry Medical Decision Making <Carmen Celestin - Last Filed: 12/04/23 17:51> <Anastasiia Ramirez - Last Filed: 12/04/23 19:46> - Medical Decision Making I performed the quick note portion of this chart. Electronically signed by Carmen Celestin PA-C (Carmen Celestin) Was pt. sent in by a medical professional or institution (ROSALIE Flaherty, POWER PLANT TECHNICIAN, urgent care, hospital, or alf...) When possible be specific @ -No Did you speak to anyone other than the patient for history (EMS, parent, family, police, friend...)? What history was obtained from this source @ -No Did you review nursing and triage notes (agree or disagree)? Why? @ -I reviewed and agree with nursing and triage notes Were old charts reviewed (outside hosp., previous admission, EMS record, old EKG, old radiological studies, urgent care reports/EKG's, alf records)? Report findings @ -No old charts were reviewed Differential Diagnosis (chest pain, altered mental status, abdominal pain women, abdominal pain men, vaginal bleeding, weakness, fever, dyspnea, syncope, headache, dizziness, GI bleed, back pain, seizure, CVA, palpatations, mental health, musculoskeletal)? @ -Differential includes influenza, RSV, COVID, other viral URI, this is not an all-inclusive list EKG interpreted by me (3pts min.). @ -As above X-rays interpreted by me (1pt min.). @ -None done CT interpreted by me (1pt min.). @ -None done U/S interpreted by me (1pt. min.). @ -None done What testing was considered but not performed or refused? (CT, X-rays, U/S, labs)? Why? @ -None What meds were considered but not given or refused? Why? @ -None Did you discuss the management of the patient with other professionals (professionals i.e. ROSALIE Flaherty, POWER PLANT TECHNICIAN, lab, RT, psych nurse, social services specialist, forming department supervisor, teacher, environmental technical officer, case hardener)? Give summary @ -No Was smoking cessation discussed for >3mins.? @ -No Was critical care preformed (if so, how long)? @ -No Were there social determinants of health that impacted care today? How? (Homelessness, low income, unemployed, alcoholism, drug addiction, transportation, low edu. Level, literacy, decrease access to med. care, residential, rehab)? @ -No Was there de-escalation of care discussed even if they declined (Discuss DNR or withdrawal of care, Hospice)? DNR status @ -No What co-morbidities impacted this encounter? (DM, HTN, Smoking, COPD, CAD, Cancer, CVA, ARF, Chemo, Hep., AIDS, mental health diagnosis, sleep apnea, morbid obesity)? @ -None Was patient admitted / discharged? Hospital course, mention meds given and route, prescriptions, significant lab abnormalities, going to OR and other pertinent info. @ -53-year-old female presenting with chief complaint of cough. No shortness of breath, fever, chest pain. Nonproductive cough. Negative for influenza, RSV, COVID. Educated on today's findings. Discharged home. Follow-up with PCP. Report back to ER with any new or worsening symptoms. Discussed return parameters and answered all questions. Patient conveyed verbal understanding and agreed to the plan. I discussed this case in detail with my attending Dr. George Undiagnosed new problem with uncertain prognosis? @ -No Drug Therapy requiring intensive monitoring for toxicity (Heparin, Nitro, Insulin, Cardizem)? @ -No Were any procedures done? @ -No Diagnosis/symptom? @ -Cough Acute, or Chronic, or Acute on Chronic? @ -Acute Uncomplicated (without systemic symptoms) or Complicated (systemic symptoms)? @ -Uncomplicated Side effects of treatment? @ -No Exacerbation, Progression, or Severe Exacerbation? @ -No Poses a threat to life or bodily function? How? (Chest pain, [place], [place], pneumonia, PE, COPD, DKA, ARF, appy, cholecystitis, CVA, Diverticulitis, Homicidal, Suicidal, threat to staff... and all critical care pts) @ -No (Anastasiia Ramirez) - Lab Data Lab Results 12/04/23 Range/Units 18:06 Influenza Type A (PCR) Not Detected (Not Detectd) Influenza Type B (PCR) Not Detected (Not Detectd) RSV (PCR) Not Detected (Not Detectd) SARS-CoV-2 (PCR) Not Detected (Not Detectd) Disposition <Carmen Celestin - Last Filed: 12/04/23 17:51> Is patient prescribed a controlled substance at d/c from ED?: No Time of Disposition: 19:46 <Anastasiia Ramirez - Last Filed: 12/04/23 19:46> Clinical Impression: Common cold Disposition: HOME SELF-CARE Condition: Good Instructions (If sedation given, give patient instructions): Upper Respiratory Infection (ED) Additional Instructions: Follow-up with PCP. Report back to ER with any new or worsening symptoms. Take medication as prescribed. Prescriptions: Benzonatate [Tessalon Perles] 100 mg PO TID PRN #15 capsule PRN Reason: Cough Referrals: Ashlee Nguyen NPC [Family Provider] - 1-2 days
[2023-12-04 17:54] VITALS: TEMP 98.7
[2023-12-04] MEDS: IBUPROFEN 400 MG TAB PO STA (20:10)
[2023-12-04 20:20] VITALS: BP 136/78; PULSE 70; RESP 18
== END 2023-12-04 20:20 | disposition home or self-care (01) ==
LOC: EC 17:43
CPT/HCPCS: 87636; 99283

== ENCOUNTER 2023-12-17 13:09 | Emergency (ER) | payer MEDICARE ==
[2023-12-17 13:16] VITALS: RESP 18; TEMP 98.3
--- NOTE | 2023-12-17 14:05 | ED ---
URI HPI - General Chief Complaint: Upper Respiratory Infection Stated Complaint: Nausea Time Seen by Provider: 12/17/23 14:04 Source: patient, RN notes reviewed Mode of arrival: ambulatory Limitations: no limitations - History of Present Illness Initial Comments: 53-year-old female presented to the ER with a chief complaint of a cough. Patient states for the past couple days she has been having a dry cough. She states while going to the bathroom this morning she noticed to cough up clear watery phlegm. Has tried [id number] Tylenol and ibuprofen without relief. Patient has a follow-up appointment with her PCP on 12-19-2023. Patient denies any fevers or chills. Denies any chest pain, shortness of breath or difficulty breathing. Denies any abdominal pain, constipation/diarrhea or peripheral edema. - Related Data Home Medications Medication Instructions Recorded Confirmed Atorvastatin [Lipitor] 80 mg PO HS 06/25/19 07/30/23 lisinopriL 40 mg PO DAILY 09/24/20 07/30/23 traZODone HCL 50 mg PO HS PRN 01/11/21 07/30/23 Ergocalciferol (Vitamin D2) 1,250 mcg PO TU 03/03/21 07/30/23 [Drisdol (50,000 Iu)] Esomeprazole Magnesium [NexIUM] 20 mg PO DAILY 01/30/22 07/30/23 INSULIN ASPART (NovoLOG) [NovoLOG 20 unit SQ AC-TID 11/26/22 07/30/23 (formulary)] Albuterol Inhaler [Ventolin Hfa 2 puff INHALATION RT-QID 03/01/23 07/30/23 Inhaler] Insulin Glargine,Hum.rec.anlog 30 units SQ HS 07/30/23 07/30/23 [Lantus Solostar Pen] Previous Rx's Medication Instructions Recorded amLODIPine [Norvasc] 10 mg PO DAILY #30 tab 03/11/23 hydrALAZINE HCL [Apresoline] 25 mg PO BID #60 tab 03/11/23 Acetaminophen Tab [Tylenol] 650 mg PO Q6H #30 tab 05/15/23 Ibuprofen [Motrin] 600 mg PO Q8HR PRN #30 tab 05/15/23 Cephalexin [Keflex] 500 mg PO QID #30 cap 08/01/23 Azithromycin [Zithromax] 500 mg PO DAILY #5 tab 10/11/23 Benzonatate [Tessalon Perles] 100 mg PO TID PRN #15 capsule 10/11/23 Bacitracin/Polymyx Oint 1 applic TOPICAL BID #10 gm 10/17/23 [Polysporin Oint] Cephalexin [Keflex] 500 mg PO Q12HR 7 Days #14 cap 10/20/23 Sulfamethox-Tmp 800-160Mg [Bactrim 1 tab PO Q12HR 7 Days #14 tab 10/20/23 DS 800-160 mg] Cephalexin [Keflex] 500 mg PO Q12HR 7 Days #14 cap 11/05/23 Sulfamethox-Tmp 800-160Mg [Bactrim 1 tab PO Q12HR 7 Days #14 tab 11/05/23 DS 800-160 mg] Ondansetron Odt [Zofran Odt] 4 mg PO Q8HR PRN #20 tab 11/07/23 Benzonatate [Tessalon Perles] 100 mg PO TID PRN #15 capsule 12/04/23 Allergies Allergy/AdvReac Type Severity Reaction Status Date / Time levofloxacin [From Levaquin] Allergy Rash/Hives Verified 12/17/23 13:16 Review of Systems ROS Statement: Those systems with pertinent positive or pertinent negative responses have been documented in the HPI. ROS Other: All systems not noted in ROS Statement are negative. Past Medical History Past Medical History: Diabetes Mellitus, GERD/Reflux, Hyperlipidemia, Hypertension, Syncope Additional Past Medical History / Comment(s): Pt recently admitted to [facility] on 07/21/21 with uncontrolled IDDM and hyperkalemia. Other hx: Recurrent pancreatitis, hypertriglyceridemia, elevated lipase, IDDM type II, UTI, chronic low back pain, bulging discs, dental abscesses in past. History of Any Multi-Drug Resistant Organisms: MRSA Date of last positivie culture/infection: 03/01/23 MDRO Source:: Abdomen Past Surgical History: Tubal Ligation Additional Past Surgical History / Comment(s): Age 7 had VSD repair, tumor removal 03/2023 Past Anesthesia/Blood Transfusion Reactions: No Reported Reaction Past Psychological History: No Psychological Hx Reported Smoking Status: Former smoker, Second hand smoke exposure, Vaper Past Alcohol Use History: None Reported Past Drug Use History: None Reported - Past Family History Mother Family Medical History: No Reported History Additional Family Medical History / Comment(s): Mother was healthy. She is , pt cannot recall cause of . Father Family Medical History: Pneumonia Additional Family Medical History / Comment(s): Father at the age of 67yrs from pneumonia General Exam Limitations: no limitations General appearance: alert, in no apparent distress Respiratory exam: Present: normal lung sounds bilaterally. Absent: respiratory distress, wheezes, rales, rhonchi, stridor Cardiovascular Exam: Present: regular rate, normal rhythm, normal heart sounds. Absent: systolic murmur, diastolic murmur, rubs, gallop, clicks Extremities exam: Present: normal inspection, full ROM, normal capillary refill. Absent: tenderness, pedal edema, joint swelling, calf tenderness Neurological exam: Present: alert, oriented X3, CN II-XII intact Skin exam: Present: warm, dry, intact, normal color. Absent: rash Course Vital Signs 12/17/23 12/17/23 13:12 16:06 Temperature 98.3 F Pulse Rate 80 86 Respiratory 18 18 Rate Blood Pressure 124/65 126/78 O2 Sat by Pulse 98 98 Oximetry Medical Decision Making - Medical Decision Making Was pt. sent in by a medical professional or institution (, PA, CONSERVATION ASSISTANT, urgent care, hospital, or shelter...) When possible be specific @ -No Did you speak to anyone other than the patient for history (EMS, parent, family, police, friend...)? What history was obtained from this source @ -No Did you review nursing and triage notes (agree or disagree)? Why? @ -I reviewed and agree with nursing and triage notes Were old charts reviewed (outside hosp., previous admission, EMS record, old EKG, old radiological studies, urgent care reports/EKG's, shelter records)? Report findings @ -No old charts were reviewed Differential Diagnosis (chest pain, altered mental status, abdominal pain women, abdominal pain men, vaginal bleeding, weakness, fever, dyspnea, syncope, headache, dizziness, GI bleed, back pain, seizure, CVA, palpatations, mental health, musculoskeletal)? @ -COVID, RSV, influenza, viral sinusitis, pneumonia this list is not meant to be all-inclusive EKG interpreted by me (3pts min.). @ -None done X-rays interpreted by me (1pt min.). @ -Chest x-ray interpreted by me negative for acute cardiopulmonary process. CT interpreted by me (1pt min.). @ -None done U/S interpreted by me (1pt. min.). @ -None done What testing was considered but not performed or refused? (CT, X-rays, U/S, labs)? Why? @ -None What meds were considered but not given or refused? Why? @ -None Did you discuss the management of the patient with other professionals (professionals i.e. , PA, CONSERVATION ASSISTANT, lab, RT, psych nurse, social service agency director, mva operator, teacher, security flex utility officer, disease case manager)? Give summary @ -No Was smoking cessation discussed for >3mins.? @ -No Was critical care preformed (if so, how long)? @ -No Were there social determinants of health that impacted care today? How? (Homelessness, low income, unemployed, alcoholism, drug addiction, transportation, low edu. Level, literacy, decrease access to med. care, longterm, rehab)? @ -No Was there de-escalation of care discussed even if they declined (Discuss DNR or withdrawal of care, Hospice)? DNR status @ -No What co-morbidities impacted this encounter? (DM, HTN, Smoking, COPD, CAD, Cancer, CVA, ARF, Chemo, Hep., AIDS, mental health diagnosis, sleep apnea, morbid obesity)? @ -None Was patient admitted / discharged? Hospital course, mention meds given and route, prescriptions, significant lab abnormalities, going to OR and other pertinent info. @ -Discharge. 53-year-old female presented to the ER with a chief complaint of a cough. History and physical exam completed. Vitals within the limits. Patient no signs of acute distress and nontoxic-appearing. Exam unremarkable. Viral swabs negative. Chest x-ray interpreted by me negative for acute cardiopulmonary process. Upon reevaluation, patient resting comfortably in stretcher in no signs of acute distress. Patient reports he follow-up with PCP in 2 days. Advised her to attend that appointment. Symptoms believed to be viral in nature. Strict return parameters discussed. Patient discharged in stable condition. Patient verbally expressed understanding agree with care plan. Case discussed with the attending by Dr. Hernandez. Undiagnosed new problem with uncertain prognosis? @ -No Drug Therapy requiring intensive monitoring for toxicity (Heparin, Nitro, I nsulin, Cardizem)? @ -No Were any procedures done? @ -No Diagnosis/symptom? @ -Viral illness/cough/viral sinusitis Acute, or Chronic, or Acute on Chronic? @ -Acute Uncomplicated (without systemic symptoms) or Complicated (systemic symptoms)? @ -Uncomplicated Side effects of treatment? @ -No Exacerbation, Progression, or Severe Exacerbation? @ -No Poses a threat to life or bodily function? How? (Chest pain, [place], [place], pneumonia, PE, COPD, DKA, ARF, appy, cholecystitis, CVA, Diverticulitis, Homicidal, Suicidal, threat to staff... and all critical care pts) @ -No - Lab Data Lab Results 12/17/23 Range/Units 13:20 Influenza Type A (PCR) Not Detected (Not Detectd) Influenza Type B (PCR) Not Detected (Not Detectd) RSV (PCR) Not Detected (Not Detectd) SARS-CoV-2 (PCR) Not Detected (Not Detectd) - Radiology Data Radiology results: report reviewed, image reviewed Disposition Clinical Impression: Cough, Viral illness Disposition: HOME SELF-CARE Condition: Stable Additional Instructions: Follow-up with PCP as scheduled on 12-19-2023. Return to the ER for any new or worsening concerns. Is patient prescribed a controlled substance at d/c from ED?: No Referrals: Ti Leon MD [Primary Care Provider] - 1-2 days Time of Disposition: 15:52
--- NOTE | 2023-12-17 14:43 | XR ---
EXAMINATION TYPE: XR chest 2V DATE OF EXAM: 12/17/2023 2:30 PM CLINICAL INDICATION: Female, 53 years old with history of congestion/cough; [facility] COMPARISON: Chest radiographs from 11/07/2023 TECHNIQUE: XR chest 2V Frontal view of the chest. FINDINGS: Lungs/Pleura: There is no evidence of pleural effusion, focal consolidation, or pneumothorax. Pulmonary vascularity: Unremarkable. Heart/mediastinum: Cardiomediastinal silhouette is unremarkable. Musculoskeletal: No acute osseous pathology. Other findings: None Lines/Tubes: IMPRESSION: No acute cardiopulmonary disease/process.
[2023-12-17 16:08] VITALS: BP 126/78; PULSE 86
== END 2023-12-17 16:31 | disposition home or self-care (01) ==
LOC: EC 13:09
CPT/HCPCS: 71046; 87636; 99284

== ENCOUNTER 2023-12-25 12:42 | Emergency (ER) | payer MEDICARE, OTHER ==
[2023-12-25 12:51] VITALS: BP 133/85; PULSE 72; RESP 18; TEMP 98.2
--- NOTE | 2023-12-25 13:50 | ED ---
General Adult HPI - General Chief complaint: Skin/Abscess/Foreign Body Stated complaint: Bee sting Time Seen by Provider: 12/25/23 13:00 Source: patient, RN notes reviewed Mode of arrival: ambulatory Limitations: no limitations - History of Present Illness Initial comments: 53-year-old female presents emergency department chief complaint of a bee sting. Patient states that [place] when she was stung on the right wrist by a bee. Currently she denies shortness of breath, difficulty breathing, lip, tongue swelling. Denies history of anaphylaxis from bee stings. No other acute complaints at this time. - Related Data Home Medications Medication Instructions Recorded Confirmed Atorvastatin [Lipitor] 80 mg PO HS 06/25/19 07/30/23 lisinopriL 40 mg PO DAILY 09/24/20 07/30/23 traZODone HCL 50 mg PO HS PRN 01/11/21 07/30/23 Ergocalciferol (Vitamin D2) 1,250 mcg PO TU 03/03/21 07/30/23 [Drisdol (50,000 Iu)] Esomeprazole Magnesium [NexIUM] 20 mg PO DAILY 01/30/22 07/30/23 INSULIN ASPART (NovoLOG) [NovoLOG 20 unit SQ AC-TID 11/26/22 07/30/23 (formulary)] Albuterol Inhaler [Ventolin Hfa 2 puff INHALATION RT-QID 03/01/23 07/30/23 Inhaler] Insulin Glargine,Hum.rec.anlog 30 units SQ HS 07/30/23 07/30/23 [Lantus Solostar Pen] Previous Rx's Medication Instructions Recorded amLODIPine [Norvasc] 10 mg PO DAILY #30 tab 03/11/23 hydrALAZINE HCL [Apresoline] 25 mg PO BID #60 tab 03/11/23 Acetaminophen Tab [Tylenol] 650 mg PO Q6H #30 tab 05/15/23 Ibuprofen [Motrin] 600 mg PO Q8HR PRN #30 tab 05/15/23 Cephalexin [Keflex] 500 mg PO QID #30 cap 08/01/23 Azithromycin [Zithromax] 500 mg PO DAILY #5 tab 10/11/23 Benzonatate [Tessalon Perles] 100 mg PO TID PRN #15 capsule 10/11/23 Bacitracin/Polymyx Oint 1 applic TOPICAL BID #10 gm 10/17/23 [Polysporin Oint] Cephalexin [Keflex] 500 mg PO Q12HR 7 Days #14 cap 10/20/23 Sulfamethox-Tmp 800-160Mg [Bactrim 1 tab PO Q12HR 7 Days #14 tab 10/20/23 DS 800-160 mg] Cephalexin [Keflex] 500 mg PO Q12HR 7 Days #14 cap 11/05/23 Sulfamethox-Tmp 800-160Mg [Bactrim 1 tab PO Q12HR 7 Days #14 tab 11/05/23 DS 800-160 mg] Ondansetron Odt [Zofran Odt] 4 mg PO Q8HR PRN #20 tab 11/07/23 Benzonatate [Tessalon Perles] 100 mg PO TID PRN #15 capsule 12/04/23 Allergies Allergy/AdvReac Type Severity Reaction Status Date / Time levofloxacin [From Levaquin] Allergy Rash/Hives Verified 12/25/23 12:51 Review of Systems ROS Statement: Those systems with pertinent positive or pertinent negative responses have been documented in the HPI. ROS Other: All systems not noted in ROS Statement are negative. Past Medical History Past Medical History: Diabetes Mellitus, GERD/Reflux, Hyperlipidemia, Hypertensi on, Syncope Additional Past Medical History / Comment(s): Pt recently admitted to [facility] on 07/21/21 with uncontrolled IDDM and hyperkalemia. Other hx: Recurrent pancreatitis, hypertriglyceridemia, elevated lipase, IDDM type II, UTI, chronic low back pain, bulging discs, dental abscesses in past. History of Any Multi-Drug Resistant Organisms: MRSA Date of last positivie culture/infection: 03/01/23 MDRO Source:: Abdomen Past Surgical History: Tubal Ligation Additional Past Surgical History / Comment(s): Age 7 had VSD repair, tumor removal 03/2023 Past Anesthesia/Blood Transfusion Reactions: No Reported Reaction Past Psychological History: No Psychological Hx Reported Smoking Status: Former smoker, Second hand smoke exposure, Vaper Past Alcohol Use History: None Reported Past Drug Use History: None Reported - Past Family History Mother Family Medical History: No Reported History Additional Family Medical History / Comment(s): Mother was healthy. She is , pt cannot recall cause of . Father Family Medical History: Pneumonia Additional Family Medical History / Comment(s): Father at the age of 67yrs from pneumonia General Exam Limitations: no limitations General appearance: alert, in no apparent distress Eye exam: Present: normal appearance, PERRL, EOMI. Absent: scleral icterus, conjunctival injection, periorbital swelling ENT exam: Present: normal exam, mucous membranes moist Neck exam: Present: normal inspection. Absent: tenderness, meningismus, lymphadenopathy Respiratory exam: Present: normal lung sounds bilaterally. Absent: respiratory distress, wheezes, rales, rhonchi, stridor Cardiovascular Exam: Present: regular rate, normal rhythm, normal heart sounds. Absent: systolic murmur, diastolic murmur, rubs, gallop, clicks GI/Abdominal exam: Present: soft, normal bowel sounds. Absent: distended, tenderness, guarding, rebound, rigid Right Forearm Wrist exam: Present: full ROM, tenderness (lateral wrist with erythema, no urticaria present) Neuro motor exam: Present: wrist extension intact, thumb opposition intact Vascular: Present: normal capillary refill, radial pulse (2+). Absent: vascular compromise Back exam: Present: normal inspection Skin exam: Present: warm, dry, intact, normal color. Absent: rash Course Vital Signs 12/25/23 12:50 Temperature 98.2 F Pulse Rate 72 Respiratory 18 Rate Blood Pressure 133/85 O2 Sat by Pulse 98 Oximetry Medical Decision Making - Medical Decision Making Was pt. sent in by a medical professional or institution (ROSALIE Flaherty, [facility] [employer], urgent care, hospital, or long-term...) When possible be specific @ -No Did you speak to anyone other than the patient for history (EMS, parent, family, police, friend...)? What history was obtained from this source @ -No Did you review nursing and triage notes (agree or disagree)? Why? @ -I reviewed and agree with nursing and triage notes Were old charts reviewed (outside hosp., previous admission, EMS record, old EKG, old radiological studies, urgent care reports/EKG's, long-term records)? Report findings @ -No old charts were reviewed Differential Diagnosis (chest pain, altered mental status, abdominal pain women, abdominal pain men, vaginal bleeding, weakness, fever, dyspnea, syncope, headache, dizziness, GI bleed, back pain, seizure, CVA, palpatations, mental health, musculoskeletal)? @ -Animal bite, animal sting, cellulitis, allergic reaction, this list not all inclusive EKG interpreted by me (3pts min.). @ -None X-rays interpreted by me (1pt min.). @ -None done CT interpreted by me (1pt min.). @ -None done U/S interpreted by me (1pt. min.). @ -None done What testing was considered but not performed or refused? (CT, X-rays, U/S, labs)? Why? @ -None What meds were considered but not given or refused? Why? @ -None Did you discuss the management of the patient with other professionals (professionals i.e. DrShayan, PA, HOUSEKEEPER [employer], lab, RT, psych nurse, social science instructor, psych coordinator, teacher, bsa officer, transplant case manager)? Give summary @ -No Was smoking cessation discussed for >3mins.? @ -No Was critical care preformed (if so, how long)? @ -No Were there social determinants of health that impacted care today? How? (Homelessness, low income, unemployed, alcoholism, drug addiction, transportation, low edu. Level, literacy, decrease access to med. care, [facility], rehab)? @ -No Was there de-escalation of care discussed even if they declined (Discuss DNR or withdrawal of care, Hospice)? DNR status @ -No What co-morbidities impacted this encounter? (DM, HTN, Smoking, COPD, CAD, Cancer, CVA, ARF, Chemo, Hep., AIDS, mental health diagnosis, sleep apnea, morbid obesity)? @ -None Was patient admitted / discharged? Hospital course, mention meds given and route, prescriptions, significant lab abnormalities, going to OR and other pertinent info. @ -discharge. 53-year-old female with bee sting. Patient is noted to have mild erythema to the right lateral wrist with no signs of urticaria. Patient is in no signs of acute distress or respiratory compromise. Patient is discharged in stable condition instructed to take Benadryl as needed for relief. Discussed with Dr. De Los Santos Undiagnosed new problem with uncertain prognosis? @ -No Drug Therapy requiring intensive monitoring for toxicity (Heparin, Nitro, Insulin, Cardizem)? @ -No Were any procedures done? @ -No Diagnosis/symptom? @ -bee sting Acute, or Chronic, or Acute on Chronic? @ -Acute Uncomplicated (without systemic symptoms) or Complicated (systemic symptoms)? @ -uncomplicated Side effects of treatment? @ -No Exacerbation, Progression, or Severe Exacerbation? @ -No Poses a threat to life or bodily function? How? (Chest pain, [place], [place], pneumonia, PE, COPD, DKA, ARF, appy, cholecystitis, CVA, Diverticulitis, Homicidal, Mayte cidal, threat to staff... and all critical care pts) @ -No Disposition Clinical Impression: Bee sting Disposition: HOME SELF-CARE Condition: Good Instructions (If sedation given, give patient instructions): Insect Bite or Sting (ED) Additional Instructions: Return to the emergency department for any new or worsening symptoms. Recommend that you use Benadryl as needed for swelling and itching. Is patient prescribed a controlled substance at d/c from ED?: No Referrals: Nonstaff,Physician [Primary Care Provider] - 1-2 days Time of Disposition: 13:50
== END 2023-12-25 14:16 | disposition home or self-care (01) ==
LOC: EC 12:42 → SUPCPDRO 12:42 → EC 14:16
CPT/HCPCS: 99283

== ENCOUNTER 2024-01-01 16:42 | Emergency (ER) | payer MEDICARE, OTHER ==
--- NOTE | 2024-01-01 17:03 | ED ---
Abdominal Pain HPI - General Source: patient, RN notes reviewed Mode of arrival: EMS Limitations: no limitations <Catalina Veras - Last Filed: 01/01/24 17:01> - History of Present Illness MD Complaint: abdominal pain, other (Generalized body aches and pains) -: unknown Migration to: no migration Severity: moderate Severity scale (1-10): 4 Quality: cramping, aching Consistency: constant Improves With: nothing Worsens With: nothing <Hemanth Tobin - Last Filed: 01/09/24 20:40> - General Chief Complaint: Abdominal Pain Stated Complaint: abd pain Time Seen by Provider: 01/01/24 16:55 - History of Present Illness Initial Comments: Quick Note: This is a 53-year-old female who is well known to the emergency department who presents for abdominal pain and diarrhea. Unable to give a clear answer as to how long this is going on. States that she cannot eat and anytime she eats she has diarrhea. States that she just does not feel well. (Catalina Veras) This is a patient well-known to this emergency department coming in for right- sided abdominal pain as well as generalized body aches and pains. Patient thinks she may have an abscess but she does have a draining area of purulence on her right side of her abdomen. No other complaints (Hemanth Tobin) - Related Data Home Medications Medication Instructions Recorded Confirmed Atorvastatin [Lipitor] 80 mg PO HS 06/25/19 07/30/23 lisinopriL 40 mg PO DAILY 09/24/20 07/30/23 traZODone HCL 50 mg PO HS PRN 01/11/21 07/30/23 Ergocalciferol (Vitamin D2) 1,250 mcg PO TU 03/03/21 07/30/23 [Drisdol (50,000 Iu)] Esomeprazole Magnesium [NexIUM] 20 mg PO DAILY 01/30/22 07/30/23 INSULIN ASPART (NovoLOG) [NovoLOG 20 unit SQ AC-TID 11/26/22 07/30/23 (formulary)] Albuterol Inhaler [Ventolin Hfa 2 puff INHALATION RT-QID 03/01/23 07/30/23 Inhaler] Insulin Glargine,Hum.rec.anlog 30 units SQ HS 07/30/23 07/30/23 [Lantus Solostar Pen] Previous Rx's Medication Instructions Recorded amLODIPine [Norvasc] 10 mg PO DAILY #30 tab 03/11/23 hydrALAZINE HCL [Apresoline] 25 mg PO BID #60 tab 03/11/23 Acetaminophen Tab [Tylenol] 650 mg PO Q6H #30 tab 05/15/23 Ibuprofen [Motrin] 600 mg PO Q8HR PRN #30 tab 05/15/23 Cephalexin [Keflex] 500 mg PO QID #30 cap 08/01/23 Azithromycin [Zithromax] 500 mg PO DAILY #5 tab 10/11/23 Benzonatate [Tessalon Perles] 100 mg PO TID PRN #15 capsule 10/11/23 Bacitracin/Polymyx Oint 1 applic TOPICAL BID #10 gm 10/17/23 [Polysporin Oint] Cephalexin [Keflex] 500 mg PO Q12HR 7 Days #14 cap 10/20/23 Sulfamethox-Tmp 800-160Mg [Bactrim 1 tab PO Q12HR 7 Days #14 tab 10/20/23 DS 800-160 mg] Cephalexin [Keflex] 500 mg PO Q12HR 7 Days #14 cap 11/05/23 Sulfamethox-Tmp 800-160Mg [Bactrim 1 tab PO Q12HR 7 Days #14 tab 11/05/23 DS 800-160 mg] Ondansetron Odt [Zofran Odt] 4 mg PO Q8HR PRN #20 tab 11/07/23 Benzonatate [Tessalon Perles] 100 mg PO TID PRN #15 capsule 12/04/23 Allergies Allergy/AdvReac Type Severity Reaction Status Date / Time levofloxacin [From Levaquin] Allergy Rash/Hives Verified 01/01/24 16:45 Review of Systems ROS Other: All systems not noted in ROS Statement are negative. <Catalina Veras - Last Filed: 01/01/24 17:01> ROS Other: All systems not noted in ROS Statement are negative. <Hemanth Tobin - Last Filed: 01/09/24 20:40> ROS Statement: Those systems with pertinent positive or pertinent negative responses have been documented in the HPI. Past Medical History Past Medical History: Diabetes Mellitus, GERD/Reflux, Hyperlipidemia, Hypertension, Syncope Additional Past Medical History / Comment(s): Pt recently admitted to [facility] on 07/21/21 with uncontrolled IDDM and hyperkalemia. Other hx: Recurrent pancreatitis, hypertriglyceridemia, elevated lipase, IDDM type II, UTI, chronic low back pain, bulging discs, dental abscesses in past. History of Any Multi-Drug Resistant Organisms: MRSA Date of last positivie culture/infection: 03/01/23 MDRO Source:: Abdomen Past Surgical History: Tubal Ligation Additional Past Surgical History / Comment(s): Age 7 had VSD repair, tumor removal 03/2023 Past Anesthesia/Blood Transfusion Reactions: No Reported Reaction Past Psychological History: No Psychological Hx Reported Smoking Status: Former smoker, Second hand smoke exposure, Vaper Past Alcohol Use History: None Reported Past Drug Use History: None Reported - Past Family History Mother Family Medical History: No Reported History Additional Family Medical History / Comment(s): Mother was healthy. She is , pt cannot recall cause of . Father Family Medical History: Pneumonia Additional Family Medical History / Comment(s): Father at the age of 67yrs from pneumonia <Catalina Veras - Last Filed: 01/01/24 17:01> General Exam Limitations: no limitations <Catalina Veras - Last Filed: 01/01/24 17:01> General appearance: alert, in no apparent distress Head exam: Present: atraumatic, normocephalic, normal inspection Eye exam: Present: normal appearance, PERRL, EOMI. Absent: scleral icterus, conjunctival injection, periorbital swelling ENT exam: Present: normal exam, mucous membranes moist Neck exam: Present: normal inspection. Absent: tenderness, meningismus, lymphadenopathy Respiratory exam: Present: normal lung sounds bilaterally. Absent: respiratory distress, wheezes, rales, rhonchi, stridor Cardiovascular Exam: Present: regular rate, normal rhythm, normal heart sounds. Absent: systolic murmur, diastolic murmur, rubs, gallop, clicks GI/Abdominal exam: Present: soft, normal bowel sounds. Absent: distended, tenderness, guarding, rebound, rigid Extremities exam: Present: normal inspection, full ROM, normal capillary refill. Absent: tenderness, pedal edema, joint swelling, calf tenderness Back exam: Present: normal inspection Neurological exam: Present: alert, oriented X3, CN II-XII intact Psychiatric exam: Present: normal affect, normal mood Skin exam: Present: warm, dry, intact, normal color. Absent: rash <Hemanth Tobin - Last Filed: 01/09/24 20:40> - General Exam Comments Initial Comments: Visual Physical Exam Vital signs reviewed General: Well-appearing, nontoxic, no acute distress. Head: Normocephalic, atraumatic Eyes: PERRLA, EOMI ENT: Airway patent Chest: Nonlabored breathing Skin: No visual rash, normal skin tone Neuro: Alert and oriented 3 Musculoskeletal: No gross abnormalities (Catalina Veras) Course <Hemanth Tobin - Last Filed: 01/09/24 20:40> Vital Signs 01/01/24 01/01/24 01/01/24 16:43 20:19 21:41 Temperature 98.7 F 98.2 F Pulse Rate 84 75 74 Respiratory 16 18 18 Rate Blood Pressure 152/81 113/62 126/76 O2 Sat by Pulse 98 96 95 Oximetry - Reevaluation(s) Reevaluation #1: 01/01/24 19:50 Medical records reviewed (Hemanth Tobin) Reevaluation #2: 01/01/24 19:50 Patient symptoms unchanged pain is controlled (Hemanth Tobin) Reevaluation #3: 01/01/24 19:50 Patient informed of results and questions answered (Hemanth Tobin) Reevaluation #4: Was pt. sent in by a medical professional or institution (, PA, FAMILY DAY CARE PROVIDER, urgent care, hospital, or snf...) When possible be specific @ -no Did you speak to anyone other than the patient for history (EMS, parent, family, police, friend...)? What history was obtained from this source @ -no Did you review nursing and triage notes (agree or disagree)? Why? @ -agree Are old charts reviewed (outside hosp., previous admission, EMS record, old EKG, old radiological studies, urgent care reports/EKG's, snf records)? Report findings @ -yes Differential Diagnosis (chest pain, altered mental status, abdominal pain women, abdominal pain men, vaginal bleeding, weakness, fever, dyspnea, syncope, headache, dizziness, GI bleed, back pain, seizure, CVA, palpatations, mental health, musculoskeletal)? @ -prior EKG interpreted by me (3pts min.). @ -no X-rays interpreted by me (1pt min.). @ -no CT interpreted by me (1pt min.). @ -no U/S interpreted by me (1pt. min.). @ -no What testing was considered but not performed or refused? (CT, X-rays, U/S, labs)? Why? @ -none What meds were considered but not given or refused? Why? @ -none Did you discuss the management of the patient with other professionals (professionals i.e. , PA, FAMILY DAY CARE PROVIDER, lab, RT, psych nurse, social worker psychiatric, auto damage estimator, teacher, commissioned security officer, watch case polisher)? Give summary @ -no Was smoking cessation discussed for >3mins.? @ -no Was critical care preformed (if so, how long)? @ -no Were there social determinants of health that impacted care today? How? (Homelessness, low income, unemployed, alcoholism, drug addiction, transportation, low edu. Level, literacy, decrease access to med. care, prison, rehab)? @ -none Was there de-escalation of care discussed even if they declined (Discuss DNR or withdrawal of care, Hospice)? DNR status @ -no What co-morbidities impacted this encounter? (DM, HTN, Smoking, COPD, CAD, Cancer, CVA, ARF, Chemo, Hep., AIDS, mental health diagnosis, sleep apnea, morbid obesity)? @ -none Was patient admitted / discharged? Hospital course, mention meds given and route, prescriptions, significant lab abnormalities, going to OR and other pertinent info. @ - 53 female for chronic complaints. Patient will be treated for cellulitis of the right anterior abdominal wall. Otherwise no acute findings and patient can be discharged home Discharge Undiagnosed new problem with uncertain prognosis? @ -no Drug Therapy requiring intensive monitoring for toxicity (Heparin, Nitro, Insulin, Cardizem)? @ -no Were any procedures done? @ -no Diagnosis/symptom? @ -Cellulitis Acute, or Chronic, or Acute on Chronic? @ -Acute Uncomplicated (without systemic symptoms) or Complicated (systemic symptoms)? @ -Complicated Side effects of treatment? @ -no Exacerbation, Progression, or Severe Exacerbation? @ -exacerbation Poses a threat to life or bodily function? How? (Chest pain, [place], [place], pneumonia, PE, COPD, DKA, ARF, appy, cholecystitis, CVA, Diverticulitis, Homicidal, Suicidal, threat to staff... and all critical care pts) @ -no (Hemanth Tobin) Medical Decision Making <Catalina Veras - Last Filed: 01/01/24 17:01> <Hemanth Tobin - Last Filed: 01/09/24 20:40> - Medical Decision Making I performed the QuickNote portion of this chart. Signed Catalina Veras PA-C. (Catalina Veras) 53 female for chronic complaints. Patient will be treated for cellulitis of the right anterior abdominal wall. Otherwise no acute findings and patient can be discharged home (Hemanth Tobin) Disposition <Catalina Veras - Last Filed: 01/01/24 17:01> Is patient prescribed a controlled substance at d/c from ED?: No Time of Disposition: 17:50 <Hemanth Tobin - Last Filed: 01/09/24 20:40> Clinical Impression: Abdominal wall cellulitis Disposition: HOME SELF-CARE Condition: Good Instructions (If sedation given, give patient instructions): Cellulitis (ED) Referrals: Nonstaff,Physician [Primary Care Provider] - 1-2 days
[2024-01-01 20:21] VITALS: RESP 18
[2024-01-01] MEDS: CEPHALEXIN 500 MG CAP PO STA (20:25)
[2024-01-01] MEDS: HYDROmorphone 1 MG/ML 1 ML SYRINGE IM STA (20:25)
[2024-01-01] MEDS: SULFAMETHOX-TMP 800-160MG 1 EACH TAB PO STA (20:25)
[2024-01-01 21:44] VITALS: BP 126/76; PULSE 74; TEMP 98.2
== END 2024-01-01 21:42 | disposition home or self-care (01) ==
LOC: EC 16:42
CPT/HCPCS: 96372; 99284

== ENCOUNTER 2024-01-17 18:02 | Emergency (ER) | payer MEDICARE, OTHER ==
[2024-01-17 18:09] VITALS: TEMP 98.4
[2024-01-17 19:29] LABS: Anisocytosis Slight; Basophils # (A) 0.1 k/uL (0-0.2); Basophils % (A) 0 %; Eosinophils # (A) 0.2 k/uL (0-0.7); Eosinophils % (A) 2 %; HCT 40.5 % (34.0-46.0); HGB 13.1 gm/dL (11.4-16.0); Hypochromasia Slight; Lymphocytes # (A) 2.8 k/uL (1.0-4.8); Lymphocytes % (A) 24 %; MCH 28.1 pg (25.0-35.0); MCHC 32.3 g/dL (31.0-37.0); Mean Platelet Volume 7.2; Monocytes # (A) 0.5 k/uL (0-1.0); Monocytes % (A) 4 %; Neutrophils # (A) 7.9 k/uL (1.3-7.7); Neutrophils % (A) 67 %; Platelet Count 529 k/uL (150-450); RBC 4.65 m/uL (3.80-5.40); RDW 16.7 % (11.5-15.5); WBC 11.8 k/uL (3.8-10.6)
[2024-01-17] MEDS: SODIUM CHLORIDE 0.9% 500 ML 500 ML IV STA (19:32)
[2024-01-17 19:41] LABS: ALT 30 U/L (4-34); AST 32 U/L (14-36); African American GFR (CKD) >90 (>60 ml/min/1.73 sqM); Albumin 3.9 g/dL (3.5-5.0); Alkaline Phosphatase 150 U/L (38-126); Amylase 47 U/L (30-110); Anion Gap 13 mmol/L; Blood Urea Nitrogen 24 mg/dL (7-17); C Reactive Protein 1.1 mg/dL (<1.0); Calcium 9.4 mg/dL (8.4-10.2); Carbon Dioxide 13 mmol/L (22-30); Chloride 105 mmol/L (98-107); Glucose 401 mg/dL (74-99); Lipase 296 U/L (23-300); Non-African American GFR(CKD) 85 (>60 ml/min/1.73 sqM); Potassium 4.7 mmol/L (3.5-5.1); Sodium 131 mmol/L (137-145); Total Bilirubin 0.5 mg/dL (0.2-1.3); Total Protein 6.7 g/dL (6.3-8.2)
[2024-01-17] MEDS: SODIUM CHLORIDE 0.9% 1,000 ML IV ONE (19:56)
[2024-01-17] MEDS: SODIUM CHLORIDE 0.9% 500 ML 500 ML IV ONE (19:56)
[2024-01-17 21:21] LABS: Glucose,Whole Blood 284 mg/dL (70-110)
[2024-01-17] MEDS: INSULIN REGULAR 100 UNIT/ML VIAL (IV) SQ STA (22:18)
[2024-01-17] MEDS: INSULIN REGULAR 100 UNIT/ML VIAL (IM/SQ) SQ STA (22:22)
[2024-01-18 00:34] LABS: African American GFR (CKD) >90 (>60 ml/min/1.73 sqM); Anion Gap 10 mmol/L; Blood Urea Nitrogen 21 mg/dL (7-17); Calcium 9.2 mg/dL (8.4-10.2); Carbon Dioxide 14 mmol/L (22-30); Chloride 110 mmol/L (98-107); Glucose 172 mg/dL (74-99); Non-African American GFR(CKD) >90 (>60 ml/min/1.73 sqM); Potassium 4.3 mmol/L (3.5-5.1); Sodium 134 mmol/L (137-145)
--- NOTE | 2024-01-18 00:50 | ED ---
Nausea/Vomiting/Diarrhea HPI - General Chief complaint: Nausea/Vomiting/Diarrhea Stated complaint: Diarrhea Time Seen by Provider: 01/17/24 18:14 Source: patient, EMS Mode of arrival: EMS Limitations: no limitations - History of Present Illness Initial comments: This patient is a 53-year-old woman with history of diabetes presenting with complaint of having sometimes loose sometimes watery stools going back up to 2 weeks also some associated right-sided abdominal pain. Pain is cramping and intermittent. No fevers noted. No change in urination or bowel movements MD complaint: diarrhea, abdominal pain Onset/Timin -: week(s) Description of Diarrhea: water Associated Abdominal Pain: Yes Location: RUQ, RLQ Radiation: none Severity: moderate Quality: cramping Consistency: intermittent Improves with: none Worsens with: none Associated Symptoms: denies other symptoms - Related Data Home Medications Medication Instructions Recorded Confirmed Atorvastatin [Lipitor] 80 mg PO HS 06/25/19 07/30/23 lisinopriL 40 mg PO DAILY 09/24/20 07/30/23 traZODone HCL 50 mg PO HS PRN 01/11/21 07/30/23 Ergocalciferol (Vitamin D2) 1,250 mcg PO TU 03/03/21 07/30/23 [Drisdol (50,000 Iu)] Esomeprazole Magnesium [NexIUM] 20 mg PO DAILY 01/30/22 07/30/23 INSULIN ASPART (NovoLOG) [NovoLOG 20 unit SQ AC-TID 11/26/22 07/30/23 (formulary)] Albuterol Inhaler [Ventolin Hfa 2 puff INHALATION RT-QID 03/01/23 07/30/23 Inhaler] Insulin Glargine,Hum.rec.anlog 30 units SQ HS 07/30/23 07/30/23 [Lantus Solostar Pen] Previous Rx's Medication Instructions Recorded amLODIPine [Norvasc] 10 mg PO DAILY #30 tab 03/11/23 hydrALAZINE HCL [Apresoline] 25 mg PO BID #60 tab 03/11/23 Acetaminophen Tab [Tylenol] 650 mg PO Q6H #30 tab 05/15/23 Ibuprofen [Motrin] 600 mg PO Q8HR PRN #30 tab 05/15/23 Cephalexin [Keflex] 500 mg PO QID #30 cap 08/01/23 Azithromycin [Zithromax] 500 mg PO DAILY #5 tab 10/11/23 Benzonatate [Tessalon Perles] 100 mg PO TID PRN #15 capsule 10/11/23 Bacitracin/Polymyx Oint 1 applic TOPICAL BID #10 gm 10/17/23 [Polysporin Oint] Cephalexin [Keflex] 500 mg PO Q12HR 7 Days #14 cap 10/20/23 Sulfamethox-Tmp 800-160Mg [Bactrim 1 tab PO Q12HR 7 Days #14 tab 10/20/23 DS 800-160 mg] Cephalexin [Keflex] 500 mg PO Q12HR 7 Days #14 cap 11/05/23 Sulfamethox-Tmp 800-160Mg [Bactrim 1 tab PO Q12HR 7 Days #14 tab 11/05/23 DS 800-160 mg] Ondansetron Odt [Zofran Odt] 4 mg PO Q8HR PRN #20 tab 11/07/23 Benzonatate [Tessalon Perles] 100 mg PO TID PRN #15 capsule 12/04/23 Allergies Allergy/AdvReac Type Severity Reaction Status Date / Time levofloxacin [From Levaquin] Allergy Rash/Hives Verified 02/08/24 16:59 Review of Systems ROS Statement: Those systems with pertinent positive or pertinent negative responses have been documented in the HPI. ROS Other: All systems not noted in ROS Statement are negative. Constitutional: Denies: fever, chills, weakness Respiratory: Denies: cough, dyspnea, wheezes Cardiovascular: Denies: chest pain, palpitations, edema Gastrointestinal: Reports: abdominal pain, nausea, diarrhea. Denies: vomiting, melena, hematochezia Genitourinary: Denies: dysuria, frequency, hematuria Musculoskeletal: Denies: back pain Skin: Denies: rash Neurological: Denies: headache, weakness Past Medical History Past Medical History: Diabetes Mellitus, GERD/Reflux, Hyperlipidemia, Hypertension, Syncope Additional Past Medical History / Comment(s): Pt recently admitted to [facility] on 07/21/21 with uncontrolled IDDM and hyperkalemia. Other hx: Recurrent pancreatitis, hypertriglyceridemia, elevated lipase, IDDM type II, UTI, chronic low back pain, bulging discs, dental abscesses in past. History of Any Multi-Drug Resistant Organisms: MRSA Date of last positivie culture/infection: 03/01/23 MDRO Source:: Abdomen Past Surgical History: Tubal Ligation Additional Past Surgical History / Comment(s): Age 7 had VSD repair, tumor removal 03/2023 Past Anesthesia/Blood Transfusion Reactions: No Reported Reaction Past Psychological History: No Psychological Hx Reported Smoking Status: Former smoker, Second hand smoke exposure, Vaper Past Alcohol Use History: None Reported Past Drug Use History: None Reported - Past Family History Mother Family Medical History: No Reported History Additional Family Medical History / Comment(s): Mother was healthy. She is , pt cannot recall cause of . Father Family Medical History: Pneumonia Additional Family Medical History / Comment(s): Father at the age of 67yrs from pneumonia General Exam Limitations: no limitations General appearance: alert, in no apparent distress Head exam: Present: atraumatic, normocephalic Eye exam: Present: normal appearance. Absent: scleral icterus, conjunctival injection ENT exam: Present: mucous membranes dry Neck exam: Present: normal inspection Respiratory exam: Present: normal lung sounds bilaterally. Absent: respiratory distress, wheezes, rales, rhonchi, stridor, accessory muscle use Cardiovascular Exam: Present: regular rate, normal rhythm, normal heart sounds. Absent: systolic murmur, diastolic murmur, rubs, gallop GI/Abdominal exam: Present: soft. Absent: distended, tenderness, guarding, rebound, rigid, mass, pulsatile mass, hernia Extremities exam: Present: normal inspection, normal capillary refill. Absent: pedal edema, calf tenderness Back exam: Present: normal inspection. Absent: CVA tenderness (R), CVA tenderness (L) Neurological exam: Present: alert Skin exam: Present: warm, dry, intact, normal color. Absent: rash Course Vital Signs 01/17/24 01/17/24 01/18/24 18:06 21:38 00:06 Temperature 98.4 F Pulse Rate 86 67 66 Respiratory 18 18 18 Rate Blood Pressure 123/78 129/84 158/88 O2 Sat by Pulse 98 96 99 Oximetry 01/18/24 01:20 Temperature Pulse Rate 70 Respiratory 16 Rate Blood Pressure 128/80 O2 Sat by Pulse 98 Oximetry Medical Decision Making - Medical Decision Making Was pt. sent in by a medical professional or institution (Dr., PA, CASE INVESTIGATOR, urgent care, hospital, or shelter...) When possible be specific @ -[No] Did you speak to anyone other than the patient for history (EMS, parent, family, police, friend...)? What history was obtained from this source @ -[No] Did you review nursing and triage notes (agree or disagree)? Why? @ -[I reviewed and agree with nursing and triage notes] Were old charts reviewed (outside hosp., previous admission, EMS record, old EKG, old radiological studies, urgent care reports/EKG's, shelter records)? Report findings @ -[No old charts were reviewed] Differential Diagnosis (chest pain, altered mental status, abdominal pain women, abdominal pain men, vaginal bleeding, weakness, fever, dyspnea, syncope, headache, dizziness, GI bleed, back pain, seizure, CVA, palpatations, mental health, musculoskeletal)? @ -[Differential Abdominal Pain Women: Appendicitis, Cholecystitis, diverticulosis, ischemic bowel, pancreatitis, hepatitis, UTI, gastroenteritis, AAA, incarcerated hernia, bowel obstruction, constipation, inflammatory bowel, hepatitis, peptic ulcer disease, splenic infarction, perforated viscus, vulvitis, ovarian torsion, PID, kidney stone, placenta abruption, this is not meant to be an all-inclusive list EKG interpreted by me (3pts min.). @ -[As above] X-rays interpreted by me (1pt min.). @ -[None done] CT interpreted by me (1pt min.). @ -[None done] U/S interpreted by me (1pt. min.). @ -[None done] What testing was considered but not performed or refused? (CT, X-rays, U/S, labs)? Why? @ -[None] What meds were considered but not given or refused? Why? @ -[None] Did you discuss the management of the patient with other professionals (professionals i.e. , PA, CASE INVESTIGATOR, lab, RT, psych nurse, criminal justice social worker, stationary engineer, teacher, special officer, case management assistant)? Give summary @ -[No] Was smoking cessation discussed for >3mins.? @ -[No] Was critical care preformed (if so, how long)? @ -[No] Were there social determinants of health that impacted care today? How? (Homelessness, low income, unemployed, alcoholism, drug addiction, transportation, low edu. Level, literacy, decrease access to med. care, detention, rehab)? @ -[No] Was there de-escalation of care discussed even if they declined (Discuss DNR or withdrawal of care, Hospice)? DNR status @ -[No] What co-morbidities impacted this encounter? (DM, HTN, Smoking, COPD, CAD, Cancer, CVA, ARF, Chemo, Hep., AIDS, mental health diagnosis, sleep apnea, morbid obesity)? @ -[Diabetes, morbid obesity Was patient admitted / discharged? Hospital course, mention meds given and ro [facility]ark[place], prescriptions, significant lab abnormalities, going to OR and other pertinent info. @ -[Patient is 53-year-old woman presenting with complaint of loose bowel movements/diarrhea and right-sided abdominal pain. The workup here is notable for poorly controlled diabetes. The patient is tolerating oral intake, no evidence of ketoacidosis. The patient not able to provide a stool specimen which I was hoping to send for Clostridium testing and culture. Patient feeling better with fluids and will have close follow-up with her physician. Return parameters discussed Undiagnosed new problem with uncertain prognosis? @ -[No] Drug Therapy requiring intensive monitoring for toxicity (Heparin, Nitro, Insulin, Cardizem)? @ -[No] Were any procedures done? @ -[No] Diagnosis/symptom? @ -[Diarrhea, acute Hyperglycemia and diabetic patient, acute Acute, or Chronic, or Acute on Chronic? @ -[Acute Uncomplicated (without systemic symptoms) or Complicated (systemic symptoms)? @ -[Uncomplicated Side effects of treatment? @ -[No] Exacerbation, Progression, or Severe Exacerbation? @ -[No] Poses a threat to life or bodily function? How? (Chest pain, USA, PA, pneumonia, PE, COPD, DKA, ARF, appy, cholecystitis, CVA, Diverticulitis, Homicidal, Suicidal, threat to staff... and all critical care pts) @ -[Low risk but does require close follow-up - Lab Data Result diagrams: 01/17/24 19:14 01/17/24 23:43 Lab Results 01/17/24 01/17/24 01/17/24 Range/Units 19:14 19:14 19:14 WBC 11.8 H (3.8-10.6) k/uL RBC 4.65 (3.80-5.40) m/uL Hgb 13.1 (11.4-16.0) gm/dL Hct 40.5 (34.0-46.0) % MCV 87.0 (80.0-100.0) fL MCH 28.1 (25.0-35.0) pg MCHC 32.3 (31.0-37.0) g/dL RDW 16.7 H (11.5-15.5) % Plt Count 529 H (150-450) k/uL MPV 7.2 Neutrophils % 67 % Lymphocytes % 24 % Monocytes % 4 % Eosinophils % 2 % Basophils % 0 % Neutrophils # 7.9 H (1.3-7.7) k/uL Lymphocytes # 2.8 (1.0-4.8) k/uL Monocytes # 0.5 (0-1.0) k/uL Eosinophils # 0.2 (0-0.7) k/uL Basophils # 0.1 (0-0.2) k/uL Hypochromasia Slight Anisocytosis Slight Sodium 131 L (137-145) mmol/L Potassium 4.7 (3.5-5.1) mmol/L Chloride 105 (98-107) mmol/L Carbon Dioxide 13 L (22-30) mmol/L Anion Gap 13 mmol/L BUN 24 H (7-17) mg/dL Creatinine 0.81 (0.52-1.04) mg/dL Est GFR (CKD-EPI)AfAm >90 (>60 ml/min/1.73 sqM) Est GFR (CKD-EPI)NonAf 85 (>60 ml/min/1.73 sqM) Glucose 401 H (74-99) mg/dL POC Glucose (mg/dL) (70-110) mg/dL POC Glu Certified Optician ID Lactic Ac Sepsis Rflx Plasma Lactic Acid Travon 5.2 H* (0.7-2.0) mmol/L Calcium 9.4 (8.4-10.2) mg/dL Total Bilirubin 0.5 (0.2-1.3) mg/dL AST 32 (14-36) U/L ALT 30 (4-34) U/L Alkaline Phosphatase 150 H (38-126) U/L C-Reactive Protein 1.1 H (<1.0) mg/dL Total Protein 6.7 (6.3-8.2) g/dL Albumin 3.9 (3.5-5.0) g/dL Amylase 47 (30-110) U/L Lipase 296 (23-300) U/L 01/17/24 01/17/24 01/17/24 Range/Units 19:47 21:19 22:30 WBC (3.8-10.6) k/uL RBC (3.80-5.40) m/uL Hgb (11.4-16.0) gm/dL Hct (34.0-46.0) % MCV (80.0-100.0) fL MCH (25.0-35.0) pg MCHC (31.0-37.0) g/dL RDW (11.5-15.5) % Plt Count (150-450) k/uL MPV Neutrophils % % Lymphocytes % % Monocytes % % Eosinophils % % Basophils % % Neutrophils # (1.3-7.7) k/uL Lymphocytes # (1.0-4.8) k/uL Monocytes # (0-1.0) k/uL Eosinophils # (0-0.7) k/uL Basophils # (0-0.2) k/uL Hypochromasia Anisocytosis Sodium (137-145) mmol/L Potassium (3.5-5.1) mmol/L Chloride (98-107) mmol/L Carbon Dioxide (22-30) mmol/L Anion Gap mmol/L BUN (7-17) mg/dL Creatinine (0.52-1.04) mg/dL Est GFR (CKD-EPI)AfAm (>60 ml/min/1.73 sqM) Est GFR (CKD-EPI)NonAf (>60 ml/min/1.73 sqM) Glucose (74-99) mg/dL POC Glucose (mg/dL) 284 H (70-110) mg/dL POC Glu Certified Optician ID Beck Janak Lactic Ac Sepsis Rflx Y Plasma Lactic Acid Travon 2.9 H* (0.7-2.0) mmol/L Calcium (8.4-10.2) mg/dL Total Bilirubin (0.2-1.3) mg/dL AST (14-36) U/L ALT (4-34) U/L Alkaline Phosphatase (38-126) U/L C-Reactive Protein (<1.0) mg/dL Total Protein (6.3-8.2) g/dL Albumin (3.5-5.0) g/dL Amylase (30-110) U/L Lipase (23-300) U/L 01/17/24 01/17/24 01/17/24 Range/Units 23:11 23:43 23:43 WBC (3.8-10.6) k/uL RBC (3.80-5.40) m/uL Hgb (11.4-16.0) gm/dL Hct (34.0-46.0) % MCV (80.0-100.0) fL MCH (25.0-35.0) pg MCHC (31.0-37.0) g/dL RDW (11.5-15.5) % Plt Count (150-450) k/uL MPV Neutrophils % % Lymphocytes % % Monocytes % % Eosinophils % % Basophils % % Neutrophils # (1.3-7.7) k/uL Lymphocytes # (1.0-4.8) k/uL Monocytes # (0-1.0) k/uL Eosinophils # (0-0.7) k/uL Basophils # (0-0.2) k/uL Hypochromasia Anisocytosis Sodium 134 L (137-145) mmol/L Potassium 4.3 (3.5-5.1) mmol/L Chloride 110 H (98-107) mmol/L Carbon Dioxide 14 L (22-30) mmol/L Anion Gap 10 mmol/L BUN 21 H (7-17) mg/dL Creatinine 0.67 (0.52-1.04) mg/dL Est GFR (CKD-EPI)AfAm >90 (>60 ml/min/1.73 sqM) Est GFR (CKD-EPI)NonAf >90 (>60 ml/min/1.73 sqM) Glucose 172 H (74-99) mg/dL POC Glucose (mg/dL) (70-110) mg/dL POC Glu Certified Optician ID Lactic Ac Sepsis Rflx Y Plasma Lactic Acid Travon 3.4 H* (0.7-2.0) mmol/L Calcium 9.2 (8.4-10.2) mg/dL Total Bilirubin (0.2-1.3) mg/dL AST (14-36) U/L ALT (4-34) U/L Alkaline Phosphatase (38-126) U/L C-Reactive Protein (<1.0) mg/dL Total Protein (6.3-8.2) g/dL Albumin (3.5-5.0) g/dL Amylase (30-110) U/L Lipase (23-300) U/L 01/18/24 Range/Units 01:48 WBC (3.8-10.6) k/uL RBC (3.80-5.40) m/uL Hgb (11.4-16.0) gm/dL Hct (34.0-46.0) % MCV (80.0-100.0) fL MCH (25.0-35.0) pg MCHC (31.0-37.0) g/dL RDW (11.5-15.5) % Plt Count (150-450) k/uL MPV Neutrophils % % Lymphocytes % % Monocytes % % Eosinophils % % Basophils % % Neutrophils # (1.3-7.7) k/uL Lymphocytes # (1.0-4.8) k/uL Monocytes # (0-1.0) k/uL Eosinophils # (0-0.7) k/uL Basophils # (0-0.2) k/uL Hypochromasia Anisocytosis Sodium (137-145) mmol/L Potassium (3.5-5.1) mmol/L Chloride (98-107) mmol/L Carbon Dioxide (22-30) mmol/L Anion Gap mmol/L BUN (7-17) mg/dL Creatinine (0.52-1.04) mg/dL Est GFR (CKD-EPI)AfAm (>60 ml/min/1.73 sqM) Est GFR (CKD-EPI)NonAf (>60 ml/min/1.73 sqM) Glucose (74-99) mg/dL POC Glucose (mg/dL) (70-110) mg/dL POC Glu Certified Optician ID Lactic Ac Sepsis Rflx Y Plasma Lactic Acid Travon (0.7-2.0) mmol/L Calcium (8.4-10.2) mg/dL Total Bilirubin (0.2-1.3) mg/dL AST (14-36) U/L ALT (4-34) U/L Alkaline Phosphatase (38-126) U/L C-Reactive Protein (<1.0) mg/dL Total Protein (6.3-8.2) g/dL Albumin (3.5-5.0) g/dL Amylase (30-110) U/L Lipase (23-300) U/L Disposition Clinical Impression: Hyperglycemia, Diarrhea Disposition: HOME SELF-CARE Condition: Good Instructions (If sedation given, give patient instructions): Acute Diarrhea (ED), Diabetic Hyperglycemia (ED) Is patient prescribed a controlled substance at d/c from ED?: No Referrals: [facility] [Primary Care Provider] - 1-2 days
[2024-01-18 01:21] VITALS: BP 128/80; PULSE 70; RESP 16
== END 2024-01-18 01:21 | disposition home or self-care (01) ==
LOC: SUPCPDRO 18:02 → EC 18:02
DX: E11.65 Type 2 diabetes mellitus with hyperglycemia (principal); R19.7 Diarrhea, unspecified; F17.290 Nicotine dependence, other tobacco product, uncomplicated; Z88.1 Allergy status to other antibiotic agents; Z79.4 Long term (current) use of insulin; Z79.899 Other long term (current) drug therapy
CPT/HCPCS: 36415; 80048; 80053; 82150; 83605; 83690; 85025; 86140; 96360; 99284

== ENCOUNTER 2024-01-22 13:04 | Emergency (ER) | payer MEDICARE, OTHER ==
--- NOTE | 2024-01-22 15:42 | ED ---
Recheck HPI - General Chief Complaint: Abdominal Pain Stated Complaint: R side abd pain Time Seen by Provider: 01/22/24 15:05 Source: patient, RN notes reviewed, old records reviewed Mode of arrival: ambulatory Limitations: no limitations - History of Present Illness Initial Comments: QN -53 female to the ER for evaluation of recurrent check for abdominal pain. Patient is well-known to this emergency department MD Complaint: abnormal lab (Abdominal pain with elevated blood sugar) -: days(s) Returns Today for: Called Because of Abnormal Lab/Test Symptoms Since Prior Visit: worsening pain Treatments Prior to Arrival: Given Pain Meds on - Related Data Home Medications Medication Instructions Recorded Confirmed Atorvastatin [Lipitor] 80 mg PO HS 06/25/19 07/30/23 lisinopriL 40 mg PO DAILY 09/24/20 07/30/23 traZODone HCL 50 mg PO HS PRN 01/11/21 07/30/23 Ergocalciferol (Vitamin D2) 1,250 mcg PO TU 03/03/21 07/30/23 [Drisdol (50,000 Iu)] Esomeprazole Magnesium [NexIUM] 20 mg PO DAILY 01/30/22 07/30/23 INSULIN ASPART (NovoLOG) [NovoLOG 20 unit SQ AC-TID 11/26/22 07/30/23 (formulary)] Albuterol Inhaler [Ventolin Hfa 2 puff INHALATION RT-QID 03/01/23 07/30/23 Inhaler] Insulin Glargine,Hum.rec.anlog 30 units SQ HS 07/30/23 07/30/23 [Lantus Solostar Pen] Previous Rx's Medication Instructions Recorded amLODIPine [Norvasc] 10 mg PO DAILY #30 tab 03/11/23 hydrALAZINE HCL [Apresoline] 25 mg PO BID #60 tab 03/11/23 Acetaminophen Tab [Tylenol] 650 mg PO Q6H #30 tab 05/15/23 Ibuprofen [Motrin] 600 mg PO Q8HR PRN #30 tab 05/15/23 Cephalexin [Keflex] 500 mg PO QID #30 cap 08/01/23 Azithromycin [Zithromax] 500 mg PO DAILY #5 tab 10/11/23 Benzonatate [Tessalon Perles] 100 mg PO TID PRN #15 capsule 10/11/23 Bacitracin/Polymyx Oint 1 applic TOPICAL BID #10 gm 10/17/23 [Polysporin Oint] Cephalexin [Keflex] 500 mg PO Q12HR 7 Days #14 cap 10/20/23 Sulfamethox-Tmp 800-160Mg [Bactrim 1 tab PO Q12HR 7 Days #14 tab 10/20/23 DS 800-160 mg] Cephalexin [Keflex] 500 mg PO Q12HR 7 Days #14 cap 11/05/23 Sulfamethox-Tmp 800-160Mg [Bactrim 1 tab PO Q12HR 7 Days #14 tab 11/05/23 DS 800-160 mg] Ondansetron Odt [Zofran Odt] 4 mg PO Q8HR PRN #20 tab 11/07/23 Benzonatate [Tessalon Perles] 100 mg PO TID PRN #15 capsule 12/04/23 Allergies Allergy/AdvReac Type Severity Reaction Status Date / Time levofloxacin [From Levaquin] Allergy Rash/Hives Verified 01/30/24 18:25 Review of Systems ROS Statement: Those systems with pertinent positive or pertinent negative responses have been documented in the HPI. ROS Other: All systems not noted in ROS Statement are negative. Past Medical History Past Medical History: Diabetes Mellitus, GERD/Reflux, Hyperlipidemia, Hypertension, Syncope Additional Past Medical History / Comment(s): Pt recently admitted to [facility] on 07/21/21 with uncontrolled IDDM and hyperkalemia. Other hx: Recurrent pancreatitis, hypertriglyceridemia, elevated lipase, IDDM type II, UTI, chronic low back pain, bulging discs, dental abscesses in past. History of Any Multi-Drug Resistant Organisms: MRSA Date of last positivie culture/infection: 03/01/23 MDRO Source:: Abdomen Past Surgical History: Tubal Ligation Additional Past Surgical History / Comment(s): Age 7 had VSD repair, tumor removal 03/2023 Past Anesthesia/Blood Transfusion Reactions: No Reported Reaction Past Psychological History: No Psychological Hx Reported Smoking Status: Former smoker, Second hand smoke exposure, Vaper Past Alcohol Use History: None Reported Past Drug Use History: None Reported - Past Family History Mother Family Medical History: No Reported History Additional Family Medical History / Comment(s): Mother was healthy. She is , pt cannot recall cause of . Father Family Medical History: Pneumonia Additional Family Medical History / Comment(s): Father at the age of 67yrs from pneumonia General Exam Limitations: no limitations General appearance: alert, in no apparent distress Head exam: Present: atraumatic, normocephalic, normal inspection Eye exam: Present: normal appearance, PERRL, EOMI. Absent: scleral icterus, conjunctival injection, periorbital swelling ENT exam: Present: normal exam, mucous membranes moist Neck exam: Present: normal inspection. Absent: tenderness, meningismus, lymphadenopathy Respiratory exam: Present: normal lung sounds bilaterally. Absent: respiratory distress, wheezes, rales, rhonchi, stridor Cardiovascular Exam: Present: regular rate, normal rhythm, normal heart sounds. Absent: systolic murmur, diastolic murmur, rubs, gallop, clicks GI/Abdominal exam: Present: soft, normal bowel sounds. Absent: distended, tenderness, guarding, rebound, rigid Extremities exam: Present: normal inspection, full ROM, normal capillary refill. Absent: tenderness, pedal edema, joint swelling, calf tenderness Back exam: Present: normal inspection Neurological exam: Present: alert, oriented X3, CN II-XII intact Psychiatric exam: Present: normal affect, normal mood Skin exam: Present: warm, dry, intact, normal color. Absent: rash Course Vital Signs 01/22/24 01/22/24 14:30 16:25 Temperature 98.5 F 98.9 F Pulse Rate 75 79 Respiratory 22 16 Rate Blood Pressure 155/83 146/80 O2 Sat by Pulse 96 Oximetry - Reevaluation(s) Reevaluation #1: 01/22/24 15:42 QN completed by myself Dr Tobin Reevaluation #2: Patient symptoms are improved Reevaluation #3: Patient informed of results questions answered Reevaluation #4: Differential Abdominal Pain Women: Appendicitis, Cholecystitis, diverticulosis, ischemic bowel, pancreatitis, hepatitis, UTI, gastroenteritis, AAA, incarcerated hernia, bowel obstruction, constipation, inflammatory bowel, hepatitis, peptic ulcer disease, splenic infarction, perforated viscus, vulvitis, ovarian torsion, PID, kidney stone, placenta abruption, this is not meant to be an all-inclusive list Medical Decision Making - Medical Decision Making 53 female well-known to this ER for nonspecific abdominal pain. No acute findings here in the ER patient can be discharged home Disposition Clinical Impression: Nausea & vomiting, Abdominal pain Disposition: HOME SELF-CARE Condition: Good Instructions (If sedation given, give patient instructions): Abdominal Pain (ED) Is patient prescribed a controlled substance at d/c from ED?: No Referrals: [facility] [Primary Care Provider] - 1-2 days Time of Disposition: 16:00
[2024-01-22] MEDS: HYDROmorphone 1 MG/ML 1 ML SYRINGE IM STA (16:21)
[2024-01-22 16:29] VITALS: BP 146/80; PULSE 79; RESP 16; TEMP 98.9
== END 2024-01-22 17:06 | disposition home or self-care (01) ==
LOC: EC 13:04
DX: R10.9 Unspecified abdominal pain (principal); R11.2 Nausea with vomiting, unspecified; F17.290 Nicotine dependence, other tobacco product, uncomplicated; Z88.1 Allergy status to other antibiotic agents
CPT/HCPCS: 99283; 96372; J1171

== ENCOUNTER 2024-01-30 17:59 | Emergency (ER) | payer MEDICARE, OTHER ==
[2024-01-30 18:25] VITALS: TEMP 98.2
[2024-01-30 18:58] LABS: Anisocytosis Slight; Basophils % (A) 0 %; Eosinophils # (A) 0.3 k/uL (0-0.7); Eosinophils % (A) 2 %; HCT 38.7 % (34.0-46.0); HGB 12.7 gm/dL (11.4-16.0); Lymphocytes # (A) 2.5 k/uL (1.0-4.8); Lymphocytes % (A) 21 %; MCHC 32.9 g/dL (31.0-37.0); MCV 88.3 fL (80.0-100.0); Mean Platelet Volume 7.7; Monocytes # (A) 0.5 k/uL (0-1.0); Monocytes % (A) 4 %; Neutrophils # (A) 8.5 k/uL (1.3-7.7); Neutrophils % (A) 71 %; Platelet Count 479 k/uL (150-450); RBC 4.39 m/uL (3.80-5.40); RDW 16.7 % (11.5-15.5)
[2024-01-30 19:13] LABS: AST 41 U/L (14-36); African American GFR (CKD) >90 (>60 ml/min/1.73 sqM); Albumin 3.8 g/dL (3.5-5.0); Alkaline Phosphatase 158 U/L (38-126); Anion Gap 15 mmol/L; Blood Urea Nitrogen 23 mg/dL (7-17); Calcium 8.8 mg/dL (8.4-10.2); Carbon Dioxide 17 mmol/L (22-30); Chloride 96 mmol/L (98-107); Magnesium 1.3 mg/dL (1.6-2.3); Non-African American GFR(CKD) 90 (>60 ml/min/1.73 sqM); Potassium 5.3 mmol/L (3.5-5.1); Sodium 128 mmol/L (137-145); Total Bilirubin 0.7 mg/dL (0.2-1.3); Total Protein 6.6 g/dL (6.3-8.2)
--- NOTE | 2024-01-30 19:14 | XR ---
EXAMINATION TYPE: XR chest 2V DATE OF EXAM: 01/30/2024 COMPARISON: 12/17/2023 HISTORY: Shortness of breath TECHNIQUE: Frontal and lateral views of the chest are obtained. FINDINGS: Scattered senescent parenchymal changes noted. Hyperinflation compatible with COPD. No evidence for infiltrate. No evidence for atelectasis. Heart size is stable. Mediastinal structures are stable and grossly unremarkable. No evidence for hilar prominence. Degenerative changes dorsal spine. IMPRESSION: 1. No evidence for acute pulmonary disease. [facility], , 01/30/2024 7:12 PM
--- NOTE | 2024-01-30 19:30 | ED ---
Chest Pain HPI - General Source: patient Mode of arrival: ambulatory Limitations: no limitations <Anastasiia Ramirez - Last Filed: 01/30/24 20:47> - General Source: patient, RN notes reviewed, old records reviewed Mode of arrival: ambulatory Limitations: no limitations - History of Present Illness MD Complaint: chest pain, other (Abdominal pain) -: hour(s) Pain Location: substernal, left chest, right chest Pain Radiation: none Severity: moderate Severity scale (1-10): 4 Quality: aching Consistency: constant Improves With: nothing Worsens With: nothing Anginal Symptoms: nausea Other Symptoms: cough Treatments Prior to Arrival: none <Hemanth Tobin - Last Filed: 02/05/24 18:38> - General Chief Complaint: Chest Pain Stated Complaint: Chest Pain Time Seen by Provider: 01/30/24 19:30 - History of Present Illness Initial Comments: 53-year-old female presenting with chief complaint of abdominal and chest pain that started earlier today. No nausea or vomiting. No shortness of breath. (Anastasiia Ramirez) This is a 53-year-old female for abdominal pain chest pain starting today (Hemanth Tobin) - Related Data Home Medications Medication Instructions Recorded Confirmed Atorvastatin [Lipitor] 80 mg PO HS 06/25/19 07/30/23 lisinopriL 40 mg PO DAILY 09/24/20 07/30/23 traZODone HCL 50 mg PO HS PRN 01/11/21 07/30/23 Ergocalciferol (Vitamin D2) 1,250 mcg PO TU 03/03/21 07/30/23 [Drisdol (50,000 Iu)] Esomeprazole Magnesium [NexIUM] 20 mg PO DAILY 01/30/22 07/30/23 INSULIN ASPART (NovoLOG) [NovoLOG 20 unit SQ AC-TID 11/26/22 07/30/23 (formulary)] Albuterol Inhaler [Ventolin Hfa 2 puff INHALATION RT-QID 03/01/23 07/30/23 Inhaler] Insulin Glargine,Hum.rec.anlog 30 units SQ HS 07/30/23 07/30/23 [Lantus Solostar Pen] Previous Rx's Medication Instructions Recorded amLODIPine [Norvasc] 10 mg PO DAILY #30 tab 03/11/23 hydrALAZINE HCL [Apresoline] 25 mg PO BID #60 tab 03/11/23 Acetaminophen Tab [Tylenol] 650 mg PO Q6H #30 tab 05/15/23 Ibuprofen [Motrin] 600 mg PO Q8HR PRN #30 tab 05/15/23 Cephalexin [Keflex] 500 mg PO QID #30 cap 08/01/23 Azithromycin [Zithromax] 500 mg PO DAILY #5 tab 10/11/23 Benzonatate [Tessalon Perles] 100 mg PO TID PRN #15 capsule 10/11/23 Bacitracin/Polymyx Oint 1 applic TOPICAL BID #10 gm 10/17/23 [Polysporin Oint] Cephalexin [Keflex] 500 mg PO Q12HR 7 Days #14 cap 10/20/23 Sulfamethox-Tmp 800-160Mg [Bactrim 1 tab PO Q12HR 7 Days #14 tab 10/20/23 DS 800-160 mg] Cephalexin [Keflex] 500 mg PO Q12HR 7 Days #14 cap 11/05/23 Sulfamethox-Tmp 800-160Mg [Bactrim 1 tab PO Q12HR 7 Days #14 tab 11/05/23 DS 800-160 mg] Ondansetron Odt [Zofran Odt] 4 mg PO Q8HR PRN #20 tab 11/07/23 Benzonatate [Tessalon Perles] 100 mg PO TID PRN #15 capsule 12/04/23 Allergies Allergy/AdvReac Type Severity Reaction Status Date / Time levofloxacin [From Levaquin] Allergy Rash/Hives Verified 01/30/24 18:25 Review of Systems ROS Other: All systems not noted in ROS Statement are negative. <Anastasiia Ramirez - Last Filed: 01/30/24 20:47> ROS Other: All systems not noted in ROS Statement are negative. <Hemanth Tobin - Last Filed: 02/05/24 18:38> ROS Statement: Those systems with pertinent positive or pertinent negative responses have been documented in the HPI. Past Medical History Past Medical History: Diabetes Mellitus, GERD/Reflux, Hyperlipidemia, Hypertension, Syncope Additional Past Medical History / Comment(s): Pt recently admitted to [facility] on 07/21/21 with uncontrolled IDDM and hyperkalemia. Other hx: Recurrent pancreatitis, hypertriglyceridemia, elevated lipase, IDDM type II, UTI, chronic low back pain, bulging discs, dental abscesses in past. History of Any Multi-Drug Resistant Organisms: MRSA Date of last positivie culture/infection: 03/01/23 MDRO Source:: Abdomen Past Surgical History: Tubal Ligation Additional Past Surgical History / Comment(s): Age 7 had VSD repair, tumor removal 03/2023 Past Anesthesia/Blood Transfusion Reactions: No Reported Reaction Past Psychological History: No Psychological Hx Reported Smoking Status: Former smoker, Second hand smoke exposure, Vaper Past Alcohol Use History: None Reported Past Drug Use History: None Reported - Past Family History Mother Family Medical History: No Reported History Additional Family Medical History / Comment(s): Mother was healthy. She is , pt cannot recall cause of . Father Family Medical History: Pneumonia Additional Family Medical History / Comment(s): Father at the age of 67yrs from pneumonia <Anastasiia Ramirez - Last Filed: 01/30/24 20:47> General Exam Limitations: no limitations <Anastasiia Ramirez - Last Filed: 01/30/24 20:47> General appearance: alert, in no apparent distress Head exam: Present: atraumatic, normocephalic, normal inspection Eye exam: Present: normal appearance, PERRL, EOMI. Absent: scleral icterus, conjunctival injection, periorbital swelling ENT exam: Present: normal exam, mucous membranes moist Neck exam: Present: normal inspection. Absent: tenderness, meningismus, lymphadenopathy Respiratory exam: Present: normal lung sounds bilaterally. Absent: respiratory distress, wheezes, rales, rhonchi, stridor Cardiovascular Exam: Present: regular rate, normal rhythm, normal heart sounds. Absent: systolic murmur, diastolic murmur, rubs, gallop, clicks GI/Abdominal exam: Present: soft, normal bowel sounds. Absent: distended, tenderness, guarding, rebound, rigid Extremities exam: Present: normal inspection, full ROM, normal capillary refill. Absent: tenderness, pedal edema, joint swelling, calf tenderness Back exam: Present: normal inspection Neurological exam: Present: alert, oriented X3, CN II-XII intact Psychiatric exam: Present: normal affect, normal mood Skin exam: Present: warm, dry, intact, normal color. Absent: rash <Hemanth Tobin - Last Filed: 02/05/24 18:38> - General Exam Comments Initial Comments: Visual Physical Exam Vital signs reviewed General: Well-appearing, nontoxic, no acute distress. Head: Normocephalic, atraumatic Eyes: PERRLA, EOMI ENT: Airway patent Chest: Nonlabored breathing Skin: No visual rash, normal skin tone Neuro: Alert and oriented 3 Musculoskeletal: No gross abnormalities (Anastasiia Ramirez) Course <Hemanth Tobin - Last Filed: 02/05/24 18:38> Vital Signs 01/30/24 01/30/24 18:23 23:15 Temperature 98.2 F Pulse Rate 79 68 Respiratory 18 15 Rate Blood Pressure 166/92 179/98 O2 Sat by Pulse 98 97 Oximetry - Reevaluation(s) Reevaluation #1: 01/30/24 21:30 Medical records reviewed (Hemanth Tobin) Reevaluation #2: 01/30/24 21:30 Patient symptoms improved (Hemanth Tobin) Reevaluation #3: 01/30/24 21:30 Patient informed of results questions answered (Hemanth Tobin) Reevaluation #4: Was pt. sent in by a medical professional or institution (ROSALIE Flaherty, NETWORK CONTROL TECHNICIAN, urgent care, hospital, or snf...) When possible be specific @ -no Did you speak to anyone other than the patient for history (EMS, parent, family, police, friend...)? What history was obtained from this source @ -no Did you review nursing and triage notes (agree or disagree)? Why? @ -agree Are old charts reviewed (outside hosp., previous admission, EMS record, old EKG, old radiological studies, urgent care reports/EKG's, snf records)? Report findings @ -yes Differential Diagnosis (chest pain, altered mental status, abdominal pain women, abdominal pain men, vaginal bleeding, weakness, fever, dyspnea, syncope, headache, dizziness, GI bleed, back pain, seizure, CVA, palpatations, mental health, musculoskeletal)? @ -prior EKG interpreted by me (3pts min.). @ -no X-rays interpreted by me (1pt min.). @ -no CT interpreted by me (1pt min.). @ -no U/S interpreted by me (1pt. min.). @ -no What testing was considered but not performed or refused? (CT, X-rays, U/S, labs)? Why? @ -none What meds were considered but not given or refused? Why? @ -none Did you discuss the management of the patient with other professionals (professionals i.e. Dr., PA, NETWORK CONTROL TECHNICIAN, lab, RT, psych nurse, social worker health services, nursery hand, teacher, toxics program officer, clinical case manager)? Give summary @ -no Was smoking cessation discussed for >3mins.? @ -no Was critical care preformed (if so, how long)? @ -no Were there social determinants of health that impacted care today? How? (Homelessness, low income, unemployed, alcoholism, drug addiction, transportation, low edu. Level, literacy, decrease access to med. care, residential, rehab)? @ -none Was there de-escalation of care discussed even if they declined (Discuss DNR or withdrawal of care, Hospice)? DNR status @ -no What co-morbidities impacted this encounter? (DM, HTN, Smoking, COPD, CAD, Cancer, CVA, ARF, Chemo, Hep., AIDS, mental health diagnosis, sleep apnea, morbid obesity)? @ -none Was patient admitted / discharged? Hospital course, mention meds given and route, prescriptions, significant lab abnormalities, going to OR and other pertinent info. @ - 53 female to ER for evaluation of chest pain and abdominal pain. Patient does have significant symptoms throughout ER stay. Patient in no acute distress currently feels well and can be discharged home Discharge Undiagnosed new problem with uncertain prognosis? @ -no Drug Therapy requiring intensive monitoring for toxicity (Heparin, Nitro, Insulin, Cardizem)? @ -no Were any procedures done? @ -no Diagnosis/symptom? @ -Chronic pain Acute, or Chronic, or Acute on Chronic? @ -Acute Uncomplicated (without systemic symptoms) or Complicated (systemic symptoms)? @ -Complicated Side effects of treatment? @ -no Exacerbation, Progression, or Severe Exacerbation? @ -exacerbation Poses a threat to life or bodily function? How? (Chest pain, [place], [place], pneumonia, PE, COPD, DKA, ARF, appy, cholecystitis, CVA, Diverticulitis, Homicidal, Suicidal, threat to staff... and all critical care pts) @ -no (Hemanth Tobin) Reevaluation #5: Differential Chest Pain: Stable Angina, Unstable Angina, STEMI, NSTEMI Aortic Dissection, Pneumothorax, Musculoskeletal, Esophageal Spasm GERD, Cholecystitis, Pancreatitis, Zoster, this is not meant to be an all-inclusive list. (Hemanth Tobin) Chest Pain MDM <Anastasiia Ramirez - Last Filed: 01/30/24 20:47> <Hemanth Tobin - Last Filed: 02/05/24 18:38> - MDM I performed the quick note portion of this visit, electronically signed Anastasiia Ramirez PA-C (Anastasiia Ramirez) 53 female to ER for evaluation of chest pain and abdominal pain. Patient does have significant symptoms throughout ER stay. Patient in no acute distress currently feels well and can be discharged home (Hemanth Tobin) Disposition <Anastasiia Ramirez - Last Filed: 01/30/24 20:47> Is patient prescribed a controlled substance at d/c from ED?: No Time of Disposition: 21:30 <Hemanth Tobin - Last Filed: 02/05/24 18:38> Clinical Impression: Chest pain, Abdominal pain, Nausea & vomiting, Hyperglycemia Disposition: HOME SELF-CARE Condition: Fair Instructions (If sedation given, give patient instructions): Chest Pain (ED), Abdominal Pain (ED) Referrals: [facility] [Primary Care Provider] - 1-2 days
[2024-01-30 20:15] LABS: INR 0.8 (<1.2); Partial Thromboplastin Time 22.9 sec (22.0-30.0); Prothrombin Time 9.5 sec (10.0-12.5)
[2024-01-30 20:25] LABS: Glucose 654 mg/dL (74-99)
[2024-01-30 20:26] LABS: ALT 39 U/L (4-34)
[2024-01-30 21:11] LABS: Glucose,Whole Blood 546 mg/dL (70-110)
[2024-01-30] MEDS: MAGNESIUM OXIDE 400 MG TAB PO STA ×2 (21:14)
[2024-01-30] MEDS: SODIUM CHLORIDE 0.9% 500 ML 500 ML IV STA (21:15)
[2024-01-30] MEDS: SODIUM CHLORIDE 0.9% 1,000 ML IV STA ×2 (21:15→22:11)
[2024-01-30] MEDS: INSULIN REGULAR 100 UNIT/ML VIAL (IM/SQ) SQ ONE ×2 (21:19→22:59)
[2024-01-30] MEDS: INSULIN REGULAR 100 UNIT/ML VIAL (IV) IV ONE (21:20)
[2024-01-30 22:23] LABS: Glucose,Whole Blood 406 mg/dL (70-110)
[2024-01-30] MEDS: PROCHLORPERAZINE INJ 10 MG/2 ML VIAL IVP STA (23:00)
[2024-01-30] MEDS: HYDROmorphone 1 MG/ML 1 ML SYRINGE IVP STA (23:13)
[2024-01-30 23:16] VITALS: BP 179/98; PULSE 68; RESP 15
[2024-01-30 23:20] LABS: Glucose,Whole Blood 332 mg/dL (70-110)
== END 2024-01-30 23:31 | disposition home or self-care (01) ==
LOC: EC 17:59
DX: E11.65 Type 2 diabetes mellitus with hyperglycemia (principal); R07.89 Other chest pain; R11.2 Nausea with vomiting, unspecified; R10.9 Unspecified abdominal pain; F17.290 Nicotine dependence, other tobacco product, uncomplicated; Z88.1 Allergy status to other antibiotic agents
CPT/HCPCS: 36415; 93005; 80053; 83735; 84484; 85025; 85610; 85730; 71046; 99285; 96374; 96375; 96361; J0780; J1171

== ENCOUNTER 2024-02-08 16:47 | Emergency (ER) | payer MEDICARE, OTHER ==
--- NOTE | 2024-02-08 17:39 | ED ---
General Adult HPI - General Chief complaint: Chest Pain Stated complaint: Chest pain Time Seen by Provider: 02/08/24 17:03 Source: patient, EMS, RN notes reviewed, old records reviewed Mode of arrival: EMS - History of Present Illness Initial comments: 53-year-old female presenting with what she describes as chest pain and epigastric pain. Pain is worse with eating. No radiation to the upper extremities. No associated vomiting or diaphoresis. She states the pain has been present for the past 2 days. She does report history of gastric reflux and states this is somewhat similar. - Related Data Home Medications Medication Instructions Recorded Confirmed Atorvastatin [Lipitor] 80 mg PO HS 06/25/19 07/30/23 lisinopriL 40 mg PO DAILY 09/24/20 07/30/23 traZODone HCL 50 mg PO HS PRN 01/11/21 07/30/23 Ergocalciferol (Vitamin D2) 1,250 mcg PO TU 03/03/21 07/30/23 [Drisdol (50,000 Iu)] Esomeprazole Magnesium [NexIUM] 20 mg PO DAILY 01/30/22 07/30/23 INSULIN ASPART (NovoLOG) [NovoLOG 20 unit SQ AC-TID 11/26/22 07/30/23 (formulary)] Albuterol Inhaler [Ventolin Hfa 2 puff INHALATION RT-QID 03/01/23 07/30/23 Inhaler] Insulin Glargine,Hum.rec.anlog 30 units SQ HS 07/30/23 07/30/23 [Lantus Solostar Pen] Previous Rx's Medication Instructions Recorded amLODIPine [Norvasc] 10 mg PO DAILY #30 tab 03/11/23 hydrALAZINE HCL [Apresoline] 25 mg PO BID #60 tab 03/11/23 Acetaminophen Tab [Tylenol] 650 mg PO Q6H #30 tab 05/15/23 Ibuprofen [Motrin] 600 mg PO Q8HR PRN #30 tab 05/15/23 Cephalexin [Keflex] 500 mg PO QID #30 cap 08/01/23 Azithromycin [Zithromax] 500 mg PO DAILY #5 tab 10/11/23 Benzonatate [Tessalon Perles] 100 mg PO TID PRN #15 capsule 10/11/23 Bacitracin/Polymyx Oint 1 applic TOPICAL BID #10 gm 10/17/23 [Polysporin Oint] Cephalexin [Keflex] 500 mg PO Q12HR 7 Days #14 cap 10/20/23 Sulfamethox-Tmp 800-160Mg [Bactrim 1 tab PO Q12HR 7 Days #14 tab 10/20/23 DS 800-160 mg] Cephalexin [Keflex] 500 mg PO Q12HR 7 Days #14 cap 11/05/23 Sulfamethox-Tmp 800-160Mg [Bactrim 1 tab PO Q12HR 7 Days #14 tab 11/05/23 DS 800-160 mg] Ondansetron Odt [Zofran Odt] 4 mg PO Q8HR PRN #20 tab 11/07/23 Benzonatate [Tessalon Perles] 100 mg PO TID PRN #15 capsule 12/04/23 Allergies Allergy/AdvReac Type Severity Reaction Status Date / Time levofloxacin [From Levaquin] Allergy Rash/Hives Verified 02/08/24 16:59 Review of Systems ROS Statement: Those systems with pertinent positive or pertinent negative responses have been documented in the HPI. ROS Other: All systems not noted in ROS Statement are negative. Past Medical History Past Medical History: Diabetes Mellitus, GERD/Reflux, Hyperlipidemia, Hypertension, Syncope Additional Past Medical History / Comment(s): Pt recently admitted to [facility] on 07/21/21 with uncontrolled IDDM and hyperkalemia. Other hx: Recurrent pancreatitis, hypertriglyceridemia, elevated lipase, IDDM type II, UTI, chronic low back pain, bulging discs, dental abscesses in past. History of Any Multi-Drug Resistant Organisms: MRSA Date of last positivie culture/infection: 03/01/23 MDRO Source:: Abdomen Past Surgical History: Tubal Ligation Additional Past Surgical History / Comment(s): Age 7 had VSD repair, tumor removal 03/2023 Past Anesthesia/Blood Transfusion Reactions: No Reported Reaction Past Psychological History: No Psychological Hx Reported Smoking Status: Former smoker, Second hand smoke exposure, Vaper Past Alcohol Use History: None Reported Past Drug Use History: None Reported - Past Family History Mother Family Medical History: No Reported History Additional Family Medical History / Comment(s): Mother was healthy. She is , pt cannot recall cause of . Father Family Medical History: Pneumonia Additional Family Medical History / Comment(s): Father at the age of 67yrs from pneumonia General Exam General appearance: alert, in no apparent distress Head exam: Present: atraumatic, normocephalic Eye exam: Present: normal appearance, PERRL ENT exam: Present: normal exam Neck exam: Present: normal inspection. Absent: tenderness, meningismus Respiratory exam: Present: normal lung sounds bilaterally. Absent: respiratory distress, wheezes Cardiovascular Exam: Present: regular rate, normal rhythm GI/Abdominal exam: Present: soft, other (Abdominal tenderness on exam). Absent: distended, tenderness Back exam: Present: normal inspection Neurological exam: Present: alert, oriented X3 Psychiatric exam: Present: normal affect, normal mood Skin exam: Present: warm, dry, intact. Absent: cyanosis, diaphoretic Course Vital Signs 02/08/24 16:57 Temperature 98.8 F Pulse Rate 79 Respiratory 20 Rate Blood Pressure 127/60 O2 Sat by Pulse 96 Oximetry Medical Decision Making - Medical Decision Making Was pt. sent in by a medical professional or institution (, PA, [employer] TRUCK DRIVER, urgent care, hospital, or penitentiary...) When possible be specific @ -No Did you speak to anyone other than the patient for history (EMS, parent, family, police, friend...)? What history was obtained from this source @ -No Did you review nursing and triage notes (agree or disagree)? Why? @ -I reviewed and agree with nursing and triage notes Were old charts reviewed (outside hosp., previous admission, EMS record, old EKG, old radiological studies, urgent care reports/EKG's, penitentiary records)? Report findings @ -No old charts were reviewed Differential Chest Pain: Stable Angina, Unstable Angina, STEMI, NSTEMI Aortic Dissection, Pneumothorax, Musculoskeletal, Esophageal Spasm GERD, Cholecystitis, Pancreatitis, Zoster, this is not meant to be an all-inclusive list. EKG interpreted by me (3pts min.). @ -Sinus rhythm rate of 80, ME interval 128, QRS duration 85, QTc [address] segment elevation. X-rays interpreted by me (1pt min.). @ -[Chest x-ray negative for acute cardiopulmonary findings CT interpreted by me (1pt min.). @ -None done U/S interpreted by me (1pt. min.). @ -None done What testing was considered but not performed or refused? (CT, X-rays, U/S, labs)? Why? @ -None What meds were considered but not given or refused? Why? @ -None Did you discuss the management of the patient with other professionals (professionals i.e. , PA, [employer] TRUCK DRIVER, lab, RT, psych nurse, geriatric social work professor, ocean export coordinator, teacher, property and supply officer, family independence case manager)? Give summary @ -No Was smoking cessation discussed for >3mins.? @ -No Was critical care preformed (if so, how long)? @ -No Were there social determinants of health that impacted care today? How? (Homelessness, low income, unemployed, alcoholism, drug addiction, transportation, low edu. Level, literacy, decrease access to med. care, nursing home, rehab)? @ -No Was there de-escalation of care discussed even if they declined (Discuss DNR or withdrawal of care, Hospice)? DNR status @ -No What co-morbidities impacted this encounter? (DM, HTN, Smoking, COPD, CAD, Cancer, CVA, ARF, Chemo, Hep., AIDS, mental health diagnosis, sleep apnea, morbid obesity)? @ -Diabetes Was patient admitted / discharged? Hospital course, mention meds given and route , prescriptions, significant lab abnormalities, going to OR and other pertinent info. @ -[53-year-old female with chest and epigastric pain after eating, more consistent with reflux. No abdominal pain or tenderness on exam. Vital signs are stable. Normal CBC, CMP showing elevated blood glucose over 600 with chronic transaminitis. I did reevaluate the patient and she is hungry. No fever. No vomiting. No abdominal pain. Chest pain resolved. Patient given IV fluid and IV insulin with downtrending sugar. Patient should take proton pump inhibitor and follow-up with her primary care provider. Return parameters are discussed. Undiagnosed new problem with uncertain prognosis? @ -No Drug Therapy requiring intensive monitoring for toxicity (Heparin, Nitro, Insulin, Cardizem)? @ -No Were any procedures done? @ -No Diagnosis/symptom? @Chest pain, Acute, or Chronic, or Acute on Chronic? @ -Acute on chronic Uncomplicated (without systemic symptoms) or Complicated (systemic symptoms)? @ -Default Side effects of treatment? @ -No Exacerbation, Progression, or Severe Exacerbation? @ -No Poses a threat to life or bodily function? How? (Chest pain, [place], [place], pneumonia, PE, COPD, DKA, ARF, appy, cholecystitis, CVA, Diverticulitis, Homicidal, Suicidal, threat to staff... and all critical care pts) @Moderate risk - Lab Data Result diagrams: 02/08/24 18:15 02/08/24 18:15 Lab Results 02/08/24 02/08/24 02/08/24 Range/Units 18:15 18:15 18:15 WBC 8.6 (3.8-10.6) k/uL RBC 4.73 (3.80-5.40) m/uL Hgb 13.5 (11.4-16.0) gm/dL Hct 42.2 (34.0-46.0) % MCV 89.2 (80.0-100.0) fL MCH 28.6 (25.0-35.0) pg MCHC 32.0 (31.0-37.0) g/dL RDW 16.5 H (11.5-15.5) % Plt Count 523 H (150-450) k/uL MPV 6.9 Neutrophils % 67 % Lymphocytes % 25 % Monocytes % 4 % Eosinophils % 2 % Basophils % 1 % Neutrophils # 5.7 (1.3-7.7) k/uL Lymphocytes # 2.1 (1.0-4.8) k/uL Monocytes # 0.4 (0-1.0) k/uL Eosinophils # 0.2 (0-0.7) k/uL Basophils # 0.1 (0-0.2) k/uL Hypochromasia Moderate Anisocytosis Slight PT 9.9 L (10.0-12.5) sec INR 0.9 (<1.2) APTT 18.4 L (22.0-30.0) sec Sodium 130 L (137-145) mmol/L Potassium 5.3 H (3.5-5.1) mmol/L Chloride 97 L (98-107) mmol/L Carbon Dioxide 16 L (22-30) mmol/L Anion Gap 17 mmol/L BUN 26 H (7-17) mg/dL Creatinine 0.98 (0.52-1.04) mg/dL Est GFR (CKD-EPI)AfAm 77 (>60 ml/min/1.73 sqM) Est GFR (CKD-EPI)NonAf 67 (>60 ml/min/1.73 sqM) Glucose 616 H* (74-99) mg/dL Calcium 8.9 (8.4-10.2) mg/dL Magnesium 1.5 L (1.6-2.3) mg/dL Total Bilirubin 0.4 (0.2-1.3) mg/dL AST 77 H (14-36) U/L ALT 47 H (4-34) U/L Alkaline Phosphatase 160 H (38-126) U/L Troponin I (0.000-0.034) ng/mL Total Protein 6.8 (6.3-8.2) g/dL Albumin 3.8 (3.5-5.0) g/dL Lipase 191 (23-300) U/L 02/08/24 Range/Units 18:15 WBC (3.8-10.6) k/uL RBC (3.80-5.40) m/uL Hgb (11.4-16.0) gm/dL Hct (34.0-46.0) % MCV (80.0-100.0) fL MCH (25.0-35.0) pg MCHC (31.0-37.0) g/dL RDW (11.5-15.5) % Plt Count (150-450) k/uL MPV Neutrophils % % Lymphocytes % % Monocytes % % Eosinophils % % Basophils % % Neutrophils # (1.3-7.7) k/uL Lymphocytes # (1.0-4.8) k/uL Monocytes # (0-1.0) k/uL Eosinophils # (0-0.7) k/uL Basophils # (0-0.2) k/uL Hypochromasia Anisocytosis PT (10.0-12.5) sec INR (<1.2) APTT (22.0-30.0) sec Sodium (137-145) mmol/L Potassium (3.5-5.1) mmol/L Chloride (98-107) mmol/L Carbon Dioxide (22-30) mmol/L Anion Gap mmol/L BUN (7-17) mg/dL Creatinine (0.52-1.04) mg/dL Est GFR (CKD-EPI)AfAm (>60 ml/min/1.73 sqM) Est GFR (CKD-EPI)NonAf (>60 ml/min/1.73 sqM) Glucose (74-99) mg/dL Calcium (8.4-10.2) mg/dL Magnesium (1.6-2.3) mg/dL Total Bilirubin (0.2-1.3) mg/dL AST (14-36) U/L ALT (4-34) U/L Alkaline Phosphatase (38-126) U/L Troponin I <0.012 (0.000-0.034) ng/mL Total Protein (6.3-8.2) g/dL Albumin (3.5-5.0) g/dL Lipase (23-300) U/L Disposition Clinical Impression: Chest pain, Hyperglycemia Disposition: HOME SELF-CARE Condition: Fair Instructions (If sedation given, give patient instructions): Chest Pain (ED) Is patient prescribed a controlled substance at d/c from ED?: No Referrals: [facility] [Primary Care Provider] - 1-2 days Time of Disposition: 19:46
[2024-02-08 18:35] LABS: Anisocytosis Slight; Basophils # (A) 0.1 k/uL (0-0.2); Basophils % (A) 1 %; Eosinophils # (A) 0.2 k/uL (0-0.7); Eosinophils % (A) 2 %; HCT 42.2 % (34.0-46.0); HGB 13.5 gm/dL (11.4-16.0); Hypochromasia Moderate; Lymphocytes # (A) 2.1 k/uL (1.0-4.8); Lymphocytes % (A) 25 %; MCH 28.6 pg (25.0-35.0); MCV 89.2 fL (80.0-100.0); Mean Platelet Volume 6.9; Monocytes # (A) 0.4 k/uL (0-1.0); Monocytes % (A) 4 %; Neutrophils # (A) 5.7 k/uL (1.3-7.7); Neutrophils % (A) 67 %; Platelet Count 523 k/uL (150-450); RBC 4.73 m/uL (3.80-5.40); RDW 16.5 % (11.5-15.5); WBC 8.6 k/uL (3.8-10.6)
[2024-02-08] MEDS: FAMOTIDINE 20 MG/2 ML VIAL IV STA (18:37)
[2024-02-08 18:46] LABS: ALT 47 U/L (4-34); AST 77 U/L (14-36); African American GFR (CKD) 77 (>60 ml/min/1.73 sqM); Albumin 3.8 g/dL (3.5-5.0); Alkaline Phosphatase 160 U/L (38-126); Anion Gap 17 mmol/L; Blood Urea Nitrogen 26 mg/dL (7-17); Calcium 8.9 mg/dL (8.4-10.2); Carbon Dioxide 16 mmol/L (22-30); Chloride 97 mmol/L (98-107); Lipase 191 U/L (23-300); Magnesium 1.5 mg/dL (1.6-2.3); Non-African American GFR(CKD) 67 (>60 ml/min/1.73 sqM); Potassium 5.3 mmol/L (3.5-5.1); Sodium 130 mmol/L (137-145); Total Bilirubin 0.4 mg/dL (0.2-1.3); Total Protein 6.8 g/dL (6.3-8.2)
[2024-02-08 19:08] LABS: INR 0.9 (<1.2); Prothrombin Time 9.9 sec (10.0-12.5)
[2024-02-08 19:11] LABS: Partial Thromboplastin Time 18.4 sec (22.0-30.0)
--- NOTE | 2024-02-08 19:13 | XR ---
EXAMINATION TYPE: XR chest 2V DATE OF EXAM: 02/08/2024 6:45 PM COMPARISON: Chest radiographs from 01/30/2024 CLINICAL INDICATION: Female, 53 years old with history of Chest Pain; [facility] TECHNIQUE: XR chest 2V Frontal and lateral views of the chest. FINDINGS: Lungs/Pleura: There is no evidence of pleural effusion, focal consolidation, or pneumothorax. Pulmonary vascularity: Unremarkable. Heart/mediastinum: Cardiomediastinal silhouette is unremarkable. Musculoskeletal: No acute osseous pathology. IMPRESSION: No acute cardiopulmonary disease/process. [facility] Justyna Goodman, , 02/08/2024 7:11 PM
[2024-02-08 19:14] LABS: Glucose 616 mg/dL (74-99)
[2024-02-08] MEDS: INSULIN REGULAR 100 UNIT/ML VIAL (IV) IV ONE (19:43)
[2024-02-08] MEDS: SODIUM CHLORIDE 0.9% 1,000 ML IV ONE (19:43)
[2024-02-08 19:49] VITALS: RESP 16
[2024-02-08 20:44] LABS: Glucose,Whole Blood 424 mg/dL (70-110)
[2024-02-08 20:56] VITALS: BP 149/81; PULSE 70; TEMP 98.7
== END 2024-02-08 20:57 | disposition home or self-care (01) ==
LOC: EC 16:47
DX: R07.9 Chest pain, unspecified (principal); E11.65 Type 2 diabetes mellitus with hyperglycemia; F17.290 Nicotine dependence, other tobacco product, uncomplicated; Z88.1 Allergy status to other antibiotic agents; Z79.4 Long term (current) use of insulin
CPT/HCPCS: 36415; 93005; 80053; 83690; 83735; 84484; 85025; 85610; 85730; 71046; 99285; 96374; 96361; J3490

== ENCOUNTER 2024-02-17 09:06 | Emergency (ER) | payer MEDICARE, OTHER ==
[2024-02-17 09:56] LABS: Anisocytosis Slight; Basophils # (A) 0.1 k/uL (0-0.2); Basophils % (A) 1 %; Eosinophils # (A) 0.3 k/uL (0-0.7); Eosinophils % (A) 3 %; HCT 40.4 % (34.0-46.0); HGB 13.1 gm/dL (11.4-16.0); Lymphocytes # (A) 2.3 k/uL (1.0-4.8); Lymphocytes % (A) 26 %; MCH 27.7 pg (25.0-35.0); MCHC 32.3 g/dL (31.0-37.0); MCV 85.6 fL (80.0-100.0); Mean Platelet Volume 6.8; Monocytes # (A) 0.3 k/uL (0-1.0); Monocytes % (A) 4 %; Neutrophils # (A) 5.7 k/uL (1.3-7.7); Neutrophils % (A) 65 %; Platelet Count 500 k/uL (150-450); RBC 4.72 m/uL (3.80-5.40); RDW 16.2 % (11.5-15.5); WBC 8.7 k/uL (3.8-10.6)
--- NOTE | 2024-02-17 10:05 | XR ---
EXAMINATION TYPE: XR chest 2V DATE OF EXAM: 02/17/2024 10:00 AM COMPARISON: Multiple chest radiographs with most recent 02/08/24 TECHNIQUE: XR chest 2V Frontal and lateral views of the chest. CLINICAL INDICATION:Female, 53 years old with history of Chest Pain; FINDINGS: Lungs/Pleura: There is no evidence of pleural effusion, focal consolidation, or pneumothorax. Pulmonary vascularity: Unremarkable. Heart/mediastinum: Cardiomediastinal silhouette is unremarkable. Musculoskeletal: No acute osseous pathology. Midline sternotomy wires are noted and stable. IMPRESSION: No acute cardiopulmonary disease/process. [facility], , 02/17/2024 10:03 AM
[2024-02-17 10:11] LABS: INR 0.8 (<1.2); Partial Thromboplastin Time 22.3 sec (22.0-30.0); Prothrombin Time 9.6 sec (10.0-12.5)
[2024-02-17 10:16] VITALS: BP 145/60
[2024-02-17 10:22] LABS: ALT 32 U/L (4-34); AST 35 U/L (14-36); African American GFR (CKD) >90 (>60 ml/min/1.73 sqM); Alkaline Phosphatase 146 U/L (38-126); Anion Gap 16 mmol/L; Blood Urea Nitrogen 16 mg/dL (7-17); Calcium 9.2 mg/dL (8.4-10.2); Carbon Dioxide 18 mmol/L (22-30); Chloride 101 mmol/L (98-107); Glucose 387 mg/dL (74-99); Lipase 205 U/L (23-300); Magnesium 1.5 mg/dL (1.6-2.3); Non-African American GFR(CKD) >90 (>60 ml/min/1.73 sqM); Potassium 4.8 mmol/L (3.5-5.1); Sodium 135 mmol/L (137-145); Total Bilirubin 0.5 mg/dL (0.2-1.3); Total Protein 6.9 g/dL (6.3-8.2)
--- NOTE | 2024-02-17 10:55 | ED ---
Chest Pain HPI - General Chief Complaint: Chest Pain Stated Complaint: Chest pain Source: patient Mode of arrival: ambulatory Limitations: no limitations - History of Present Illness Initial Comments: 53-year-old female presents emergency department reporting chest pain. Patient well-known to the emergency department. Reports today that she is having chest pain consistent with her typical chest pain. Described as a pressure sensation with shortness of breath. She did not take anything for the pain before coming in. She has had previous cardiac workup. She denies calf pain or swelling. No history of DVT or PE. Not on any blood thinners. Also reports that she has a scab on her right abdomen. Previous history of MRSA. Not currently on any antibiotics. No reported fevers. No other alleviating, precipitating modifying factors - Related Data Home Medications Medication Instructions Recorded Confirmed Atorvastatin [Lipitor] 80 mg PO HS 06/25/19 02/17/24 lisinopriL 40 mg PO DAILY 09/24/20 02/17/24 traZODone HCL 50 mg PO HS 01/11/21 02/17/24 INSULIN ASPART (NovoLOG) [NovoLOG 20 unit SQ AC-TID 11/26/22 02/17/24 (formulary)] Albuterol Inhaler [Ventolin Hfa 2 puff INHALATION RT-QID PRN 03/01/23 02/17/24 Inhaler] Insulin Glargine,Hum.rec.anlog 30 units SQ DAILY 07/30/23 02/17/24 [Lantus Solostar Pen] Dulaglutide [Trulicity] 1.5 mg SQ DIRECTED 02/17/24 02/17/24 Ezetimibe [Zetia] 10 mg PO HS 02/17/24 02/17/24 Insulin Aspart (Niacinamide) 8 units SQ DIRECTED 02/17/24 02/17/24 [Fiasp 100 Unit/ml Flextouch Pen] Nystatin 100,000 Unit/gm Powd 1 applic TOPICAL BID PRN 02/17/24 02/17/24 [Mycostatin Powder] Pantoprazole [Protonix] 40 mg PO DAILY 02/17/24 02/17/24 metFORMIN HCL [Glucophage] 500 mg PO BID 02/17/24 02/17/24 Previous Rx's Medication Instructions Recorded amLODIPine [Norvasc] 10 mg PO DAILY #30 tab 03/11/23 hydrALAZINE HCL [Apresoline] 25 mg PO BID #60 tab 03/11/23 Mupirocin 2% Oint [Bactroban 2% 1 applic TOPICAL TID #22 gm 02/17/24 Oint] Ondansetron Odt [Zofran Odt] 4 mg PO Q8HR PRN #10 tab 02/17/24 Sulfamethox-Tmp 800-160Mg [Bactrim 2 tab PO Q12HR #28 tab 02/17/24 DS 800-160 mg] Allergies Allergy/AdvReac Type Severity Reaction Status Date / Time levofloxacin [From Levaquin] Allergy Rash/Hives Verified 02/22/24 16:46 Review of Systems ROS Statement: Those systems with pertinent positive or pertinent negative responses have been documented in the HPI. ROS Other: All systems not noted in ROS Statement are negative. Past Medical History Past Medical History: Diabetes Mellitus, GERD/Reflux, Hyperlipidemia, Hypertension, Syncope Additional Past Medical History / Comment(s): Pt recently admitted to [facility] on 07/21/21 with uncontrolled IDDM and hyperkalemia. Other hx: Recurrent pancreatitis, hypertriglyceridemia, elevated lipase, IDDM type II, UTI, chronic low back pain, bulging discs, dental abscesses in past. History of Any Multi-Drug Resistant Organisms: MRSA Date of last positivie culture/infection: 03/01/23 MDRO Source:: Abdomen Past Surgical History: Tubal Ligation Additional Past Surgical History / Comment(s): Age 7 had VSD repair, tumor removal 03/2023 Past Anesthesia/Blood Transfusion Reactions: No Reported Reaction Past Psychological History: No Psychological Hx Reported Smoking Status: Former smoker, Second hand smoke exposure, Vaper Past Alcohol Use History: None Reported Past Drug Use History: None Reported - Past Family History Mother Family Medical History: No Reported History Additional Family Medical History / Comment(s): Mother was healthy. She is , pt cannot recall cause of . Father Family Medical History: Pneumonia Additional Family Medical History / Comment(s): Father at the age of 67yrs from pneumonia General Exam Limitations: no limitations General appearance: alert, in no apparent distress Head exam: Present: atraumatic, normocephalic, normal inspection Eye exam: Present: normal appearance, PERRL, EOMI. Absent: scleral icterus, conjunctival injection, periorbital swelling ENT exam: Present: normal exam, mucous membranes moist Neck exam: Present: normal inspection. Absent: tenderness, meningismus, lymphadenopathy Respiratory exam: Present: normal lung sounds bilaterally. Absent: respiratory distress, wheezes, rales, rhonchi, stridor Cardiovascular Exam: Present: regular rate, normal rhythm, normal heart sounds. Absent: systolic murmur, diastolic murmur, rubs, gallop, clicks GI/Abdominal exam: Present: soft, normal bowel sounds, other (Scaphoid abdomen measuring 2 cm. Mild surrounding erythema). Absent: distended, tenderness, guarding, rebound, rigid Extremities exam: Present: normal inspection, full ROM, normal capillary refill. Absent: tenderness, pedal edema, joint swelling, calf tenderness Back exam: Present: normal inspection Neurological exam: Present: alert, oriented X3, CN II-XII intact Psychiatric exam: Present: normal affect, normal mood Skin exam: Present: warm, dry, intact, normal color. Absent: rash Course Vital Signs 02/17/24 02/17/24 02/17/24 09:13 10:15 11:06 Temperature 98.5 F 97.9 F Pulse Rate 70 62 65 Respiratory 16 16 18 Rate Blood Pressure 145/87 145/60 145/60 O2 Sat by Pulse 98 95 99 Oximetry Chest Pain MDM - MDM Was pt. sent in by a medical professional or institution (ROSALIE Flaherty, RESEARCH AND INSIGHTS EXECUTIVE, urgent care, hospital, or half-way...) When possible be specific @ -No Did you speak to anyone other than the patient for history (EMS, parent, family, police, friend...)? What history was obtained from this source @ -No Did you review nursing and triage notes (agree or disagree)? Why? @ -I reviewed and agree with nursing and triage notes Were old charts reviewed (outside hosp., previous admission, EMS record, old EKG, old radiological studies, urgent care reports/EKG's, half-way records)? Report findings @ -No old charts were reviewed Differential Diagnosis (chest pain, altered mental status, abdominal pain women, abdominal pain men, vaginal bleeding, weakness, fever, dyspnea, syncope, headache, dizziness, GI bleed, back pain, seizure, CVA, palpatations, mental health, musculoskeletal)? @ -Differential Chest Pain: Stable Angina, Unstable Angina, STEMI, NSTEMI Aortic Dissection, Pneumothorax, Musculoskeletal, Esophageal Spasm GERD, Cholecystitis, Pancreatitis, Zoster, this is not meant to be an all-inclusive list. EKG interpreted by me (3pts min.). @ -Yes and demonstrates sinus rhythm with a rate of 76. Parable 132. QRS 90. QTc of 400. No acute ST segment elevations or depressions X-rays interpreted by me (1pt min.). @ -Yes and demonstrates no acute process CT interpreted by me (1pt min.). @ -None done U/S interpreted by me (1pt. min.). @ -None done What testing was considered but not performed or refused? (CT, X-rays, U/S, labs)? Why? @ -None What meds were considered but not given or refused? Why? @ -None Did you discuss the management of the patient with other professionals (professionals i.e. , PA, RESEARCH AND INSIGHTS EXECUTIVE, lab, RT, psych nurse, social worker palliative care, farm equipment technician, teacher, customs patrol officer, shoe caser)? Give summary @ -No Was smoking cessation discussed for >3mins.? @ -No Was critical care preformed (if so, how long)? @ -No Were there social determinants of health that impacted care today? How? (H omelessness, low income, unemployed, alcoholism, drug addiction, transportation, low edu. Level, literacy, decrease access to med. care, skilled nursing, rehab)? @ -No Was there de-escalation of care discussed even if they declined (Discuss DNR or withdrawal of care, Hospice)? DNR status @ -No What co-morbidities impacted this encounter? (DM, HTN, Smoking, COPD, CAD, Cancer, CVA, ARF, Chemo, Hep., AIDS, mental health diagnosis, sleep apnea, morbid obesity)? @ -MRSA cellulitis Was patient admitted / discharged? Hospital course, mention meds given and route, prescriptions, significant lab abnormalities, going to OR and other pertinent info. @ -Upon arrival patient seen and evaluated in bed 6. Thorough history and physical exam was performed. IV access was established. Laboratory studies are conducted. Chest x-ray was performed. Results are discussed with the patient. She will be initiated on antibiotics for her skin cellulitis. No ulcer formation at this time requiring incision. Patient will be discharged home. Instructed follow-up with her primary care doctor in 2 to 4 days for reevaluation of her symptoms return for any new or worsening symptoms. Patient was agreeable to this and she was discharged home in stable condition Undiagnosed new problem with uncertain prognosis? @ -No Drug Therapy requiring intensive monitoring for toxicity (Heparin, Nitro, Insulin, Cardizem)? @ -No Were any procedures done? @ -No Diagnosis/symptom? @ -Acute chest pain, acute right abdominal cellulitis Acute, or Chronic, or Acute on Chronic? @ -Acute Uncomplicated (without systemic symptoms) or Complicated (systemic symptoms)? @ -Complicated Side effects of treatment? @ -No Exacerbation, Progression, or Severe Exacerbation? @ -No Poses a threat to life or bodily function? How? (Chest pain, [place], [place], pneumonia, PE, COPD, DKA, ARF, appy, cholecystitis, CVA, Diverticulitis, Homicidal, Suicidal, threat to staff... and all critical care pts) @ -No Disposition Clinical Impression: Cellulitis, Atypical chest pain Disposition: HOME SELF-CARE Condition: Stable Instructions (If sedation given, give patient instructions): Cellulitis (ED), Noncardiac Chest Pain (ED) Additional Instructions: Please place the cream twice a day to that site on your abdomen. Take the Bactrim by mouth for 7 days. Follow-up with your doctor to ensure improvement in the wound healing process within the next week and return for any new or worsening symptoms Prescriptions: Sulfamethox-Tmp 800-160Mg [Bactrim DS 800-160 mg] 2 tab PO Q12HR #28 tab Mupirocin 2% Oint [Bactroban 2% Oint] 1 applic TOPICAL TID #22 gm Ondansetron Odt [Zofran Odt] 4 mg PO Q8HR PRN #10 tab PRN Reason: Nausea Is patient prescribed a controlled substance at d/c from ED?: No Referrals: [facility] [Primary Care Provider] - 1-2 days Time of Disposition: 10:54
[2024-02-17] MEDS: MORPHINE SULFATE 4 MG/ML SYRINGE IVP STA (11:01)
[2024-02-17] MEDS: ONDANSETRON 4 MG/2 ML VIAL IVP STA (11:01)
[2024-02-17 11:07] VITALS: PULSE 65; RESP 18; TEMP 97.9
== END 2024-02-17 11:11 | disposition home or self-care (01) ==
LOC: EC 09:06
DX: R07.89 Other chest pain (principal); L03.311 Cellulitis of abdominal wall; F17.290 Nicotine dependence, other tobacco product, uncomplicated; Z88.1 Allergy status to other antibiotic agents
CPT/HCPCS: 36415; 93005; 85379; 80053; 83690; 83735; 84484; 85025; 85610; 85730; 71046; 99285; 96374; 96375; J2270; J2405

== ENCOUNTER 2024-02-22 16:40 | Emergency (ER) | payer MEDICARE, OTHER ==
[2024-02-22 16:46] VITALS: TEMP 98.4
--- NOTE | 2024-02-22 16:53 | ED ---
URI HPI - General Chief Complaint: Upper Respiratory Infection Stated Complaint: Cough Time Seen by Provider: 02/22/24 16:52 Source: patient, RN notes reviewed Mode of arrival: EMS - History of Present Illness Initial Comments: 53-year-old female presenting with cough x 2 days with fatigue and bodyaches. Denies fever, chills, shortness of breath, chest pain, vomiting. - Related Data Home Medications Medication Instructions Recorded Confirmed Atorvastatin [Lipitor] 80 mg PO HS 06/25/19 02/17/24 lisinopriL 40 mg PO DAILY 09/24/20 02/17/24 traZODone HCL 50 mg PO HS 01/11/21 02/17/24 INSULIN ASPART (NovoLOG) [NovoLOG 20 unit SQ AC-TID 11/26/22 02/17/24 (formulary)] Albuterol Inhaler [Ventolin Hfa 2 puff INHALATION RT-QID PRN 03/01/23 02/17/24 Inhaler] Insulin Glargine,Hum.rec.anlog 30 units SQ DAILY 07/30/23 02/17/24 [Lantus Solostar Pen] Dulaglutide [Trulicity] 1.5 mg SQ DIRECTED 02/17/24 02/17/24 Ezetimibe [Zetia] 10 mg PO HS 02/17/24 02/17/24 Insulin Aspart (Niacinamide) 8 units SQ DIRECTED 02/17/24 02/17/24 [Fiasp 100 Unit/ml Flextouch Pen] Nystatin 100,000 Unit/gm Powd 1 applic TOPICAL BID PRN 02/17/24 02/17/24 [Mycostatin Powder] Pantoprazole [Protonix] 40 mg PO DAILY 02/17/24 02/17/24 metFORMIN HCL [Glucophage] 500 mg PO BID 02/17/24 02/17/24 Previous Rx's Medication Instructions Recorded amLODIPine [Norvasc] 10 mg PO DAILY #30 tab 03/11/23 hydrALAZINE HCL [Apresoline] 25 mg PO BID #60 tab 03/11/23 Mupirocin 2% Oint [Bactroban 2% 1 applic TOPICAL TID #22 gm 02/17/24 Oint] Ondansetron Odt [Zofran Odt] 4 mg PO Q8HR PRN #10 tab 02/17/24 Sulfamethox-Tmp 800-160Mg [Bactrim 2 tab PO Q12HR #28 tab 02/17/24 DS 800-160 mg] Allergies Allergy/AdvReac Type Severity Reaction Status Date / Time levofloxacin [From Levaquin] Allergy Rash/Hives Verified 02/22/24 16:46 Review of Systems ROS Statement: Those systems with pertinent positive or pertinent negative responses have been documented in the HPI. ROS Other: All systems not noted in ROS Statement are negative. Past Medical History Past Medical History: Diabetes Mellitus, GERD/Reflux, Hyperlipidemia, Hypertension, Syncope Additional Past Medical History / Comment(s): Pt recently admitted to [facility] on 07/21/21 with uncontrolled IDDM and hyperkalemia. Other hx: Recurrent pancreatitis, hypertriglyceridemia, elevated lipase, IDDM type II, UTI, chronic low back pain, bulging discs, dental abscesses in past. History of Any Multi-Drug Resistant Organisms: MRSA Date of last positivie culture/infection: 03/01/23 MDRO Source:: Abdomen Past Surgical History: Tubal Ligation Additional Past Surgical History / Comment(s): Age 7 had VSD repair, tumor removal 03/2023 Past Anesthesia/Blood Transfusion Reactions: No Reported Reaction Past Psychological History: No Psychological Hx Reported Smoking Status: Former smoker, Second hand smoke exposure, Vaper Past Alcohol Use History: None Reported Past Drug Use History: None Reported - Past Family History Mother Family Medical History: No Reported History Additional Family Medical History / Comment(s): Mother was healthy. She is , pt cannot recall cause of . Father Family Medical History: Pneumonia Additional Family Medical History / Comment(s): Father at the age of 67yrs from pneumonia General Exam General appearance: alert, in no apparent distress Head exam: Present: atraumatic, normocephalic, normal inspection Eye exam: Present: normal appearance, PERRL, EOMI. Absent: scleral icterus, conjunctival injection, periorbital swelling ENT exam: Present: normal exam, normal oropharynx, mucous membranes moist Neck exam: Present: normal inspection. Absent: tenderness, meningismus, lymphadenopathy Respiratory exam: Present: normal lung sounds bilaterally. Absent: respiratory distress, wheezes, rales, rhonchi, stridor Cardiovascular Exam: Present: regular rate, normal rhythm, normal heart sounds. Absent: systolic murmur, diastolic murmur, rubs, gallop, clicks GI/Abdominal exam: Present: soft, normal bowel sounds. Absent: distended, tenderness, guarding, rebound, rigid Neurological exam: Present: alert, oriented X3 Psychiatric exam: Present: normal affect, normal mood Skin exam: Present: warm, dry, intact, normal color. Absent: rash Course Vital Signs 02/22/24 16:43 Temperature 98.4 F Pulse Rate 70 Respiratory 20 Rate Blood Pressure 122/72 O2 Sat by Pulse 98 Oximetry Medical Decision Making - Medical Decision Making Was pt. sent in by a medical professional or institution (, ROSALIE, SMALL ANIMAL VETERINARIAN, urgent care, hospital, or residential...) When possible be specific @ -No Did you speak to anyone other than the patient for history (EMS, parent, family, police, friend...)? What history was obtained from this source @ -No Did you review nursing and triage notes (agree or disagree)? Why? @ -I reviewed and agree with nursing and triage notes Were old charts reviewed (outside hosp., previous admission, EMS record, old EK G, old radiological studies, urgent care reports/EKG's, residential records)? Report findings @ -No old charts were reviewed Differential Diagnosis (chest pain, altered mental status, abdominal pain women, abdominal pain men, vaginal bleeding, weakness, fever, dyspnea, syncope, headache, dizziness, GI bleed, back pain, seizure, CVA, palpatations, mental health, musculoskeletal)? @ -Viral URI, COVID, influenza, pneumonia, bronchitis EKG interpreted by me (3pts min.). @ -None X-rays interpreted by me (1pt min.). @ -Chest x-ray reveals no acute process CT interpreted by me (1pt min.). @ -None done U/S interpreted by me (1pt. min.). @ -None done What testing was considered but not performed or refused? (CT, X-rays, U/S, labs)? Why? @ -None What meds were considered but not given or refused? Why? @ -None Did you discuss the management of the patient with other professionals (professionals i.e. ROSALIE Flaherty, SMALL ANIMAL VETERINARIAN, lab, RT, psych nurse, social work job titles, mucking machine operator, teacher, environmental health officer, case advocate)? Give summary @ -No Was smoking cessation discussed for >3mins.? @ -No Was critical care preformed (if so, how long)? @ -No Were there social determinants of health that impacted care today? How? (H omelessness, low income, unemployed, alcoholism, drug addiction, transportation, low edu. Level, literacy, decrease access to med. care, assisted, rehab)? @ -No Was there de-escalation of care discussed even if they declined (Discuss DNR or withdrawal of care, Hospice)? DNR status @ -No What co-morbidities impacted this encounter? (DM, HTN, Smoking, COPD, CAD, Cancer, CVA, ARF, Chemo, Hep., AIDS, mental health diagnosis, sleep apnea, morbid obesity)? @ -None Was patient admitted / discharged? Hospital course, mention meds given and route, prescriptions, significant lab abnormalities, going to OR and other pertinent info. @ -Discharge. This is a 53-year-old female presenting for cough x 2 days with bodyaches and fatigue. No red flag symptoms or signs of respiratory distress. Vital signs within acceptable limits. Heart and lungs clear to auscultation bilaterally. Patient is negative for COVID, influenza, and RSV. Chest x-ray reveals no acute process. Discussed diagnosis of viral upper respiratory infection with patient. Discussed appropriate return parameters and follow-up care. Case was discussed with my ED attending Dr. Patrick. Undiagnosed new problem with uncertain prognosis? @ -No Drug Therapy requiring intensive monitoring for toxicity (Heparin, Nitro, Insulin, Cardizem)? @ -No Were any procedures done? @ -No Diagnosis/symptom? @ -Viral upper respiratory infection Acute, or Chronic, or Acute on Chronic? @ -Acute Uncomplicated (without systemic symptoms) or Complicated (systemic symptoms)? @ -Uncomplicated Side effects of treatment? @ -No Exacerbation, Progression, or Severe Exacerbation? @ -No Poses a threat to life or bodily function? How? (Chest pain, [place], [place], pneumonia, PE, COPD, DKA, ARF, appy, cholecystitis, CVA, Diverticulitis, Homicidal, Suicidal, threat to staff... and all critical care pts) @ -No - Lab Data Lab Results 02/22/24 Range/Units 17:00 Influenza Type A (PCR) Not Detected (Not Detectd) Influenza Type B (PCR) Not Detected (Not Detectd) RSV (PCR) Not Detected (Not Detectd) SARS-CoV-2 (PCR) Not Detected (Not Detectd) Disposition Clinical Impression: Viral upper respiratory infection Disposition: HOME SELF-CARE Condition: Stable Instructions (If sedation given, give patient instructions): Upper Respiratory Infection (ED) Additional Instructions: Please return to the Emergency Department if symptoms worsen or any other concerns. Is patient prescribed a controlled substance at d/c from ED?: No Referrals: [facility] [Primary Care Provider] - 1-2 days Time of Disposition: 18:14
--- NOTE | 2024-02-22 17:28 | XR ---
EXAMINATION TYPE: XR chest 2V DATE OF EXAM: 02/22/2024 5:17 PM COMPARISON: Chest radiographs from 02/17/2024 CLINICAL INDICATION: Female, 53 years old with history of cough x 2 days; [facility] TECHNIQUE: XR chest 2V Frontal and lateral views of the chest. FINDINGS: Lungs/Pleura: There is no evidence of pleural effusion, focal consolidation, or pneumothorax. Pulmonary vascularity: Unremarkable. Heart/mediastinum: Cardiomediastinal silhouette is unremarkable. Musculoskeletal: No acute osseous pathology. IMPRESSION: No acute cardiopulmonary disease/process. [facility] Goodman, , 02/22/2024 5:25 PM
[2024-02-22 18:29] VITALS: BP 118/75; PULSE 67; RESP 18
== END 2024-02-22 18:29 | disposition home or self-care (01) ==
LOC: EC 16:40
DX: J06.9 Acute upper respiratory infection, unspecified (principal); F17.290 Nicotine dependence, other tobacco product, uncomplicated; Z88.1 Allergy status to other antibiotic agents
CPT/HCPCS: 71046; 87636; 99284

== ENCOUNTER 2024-03-08 09:11 | Emergency (ER) | payer MEDICARE ==
--- NOTE | 2024-03-08 09:17 | ED ---
General Adult HPI - General Chief complaint: Nausea/Vomiting/Diarrhea Stated complaint: NVD Time Seen by Provider: 03/08/24 09:13 Source: patient, EMS, RN notes reviewed Mode of arrival: EMS Limitations: no limitations - History of Present Illness Initial comments: 53-year-old female presents emergency department via EMS complaint of hyperglycemia, nausea vomiting diarrhea. She has chronic GI symptoms she states has not been changed. She states that she is waiting for her short acting insulin to be approved. Patient states they sent over snowballed that was not approved by her insurance this was a change tomorrow. She took her long-acting insulin this morning states blood sugar was around 500. She denies any chest pain or shortness of breath no fevers or chills no other associated symptoms. - Related Data Home Medications Medication Instructions Recorded Confirmed Atorvastatin [Lipitor] 80 mg PO HS 06/25/19 02/17/24 lisinopriL 40 mg PO DAILY 09/24/20 02/17/24 traZODone HCL 50 mg PO HS 01/11/21 02/17/24 INSULIN ASPART (NovoLOG) [NovoLOG 20 unit SQ AC-TID 11/26/22 02/17/24 (formulary)] Albuterol Inhaler [Ventolin Hfa 2 puff INHALATION RT-QID PRN 03/01/23 02/17/24 Inhaler] Insulin Glargine,Hum.rec.anlog 30 units SQ DAILY 07/30/23 02/17/24 [Lantus Solostar Pen] Dulaglutide [Trulicity] 1.5 mg SQ DIRECTED 02/17/24 02/17/24 Ezetimibe [Zetia] 10 mg PO HS 02/17/24 02/17/24 Insulin Aspart (Niacinamide) 8 units SQ DIRECTED 02/17/24 02/17/24 [Fiasp 100 Unit/ml Flextouch Pen] Nystatin 100,000 Unit/gm Powd 1 applic TOPICAL BID PRN 02/17/24 02/17/24 [Mycostatin Powder] Pantoprazole [Protonix] 40 mg PO DAILY 02/17/24 02/17/24 metFORMIN HCL [Glucophage] 500 mg PO BID 02/17/24 02/17/24 Previous Rx's Medication Instructions Recorded amLODIPine [Norvasc] 10 mg PO DAILY #30 tab 03/11/23 hydrALAZINE HCL [Apresoline] 25 mg PO BID #60 tab 03/11/23 Mupirocin 2% Oint [Bactroban 2% 1 applic TOPICAL TID #22 gm 02/17/24 Oint] Ondansetron Odt [Zofran Odt] 4 mg PO Q8HR PRN #10 tab 02/17/24 Sulfamethox-Tmp 800-160Mg [Bactrim 2 tab PO Q12HR #28 tab 02/17/24 DS 800-160 mg] Allergies Allergy/AdvReac Type Severity Reaction Status Date / Time levofloxacin [From Levaquin] Allergy Rash/Hives Verified 03/08/24 09:16 Review of Systems ROS Statement: Those systems with pertinent positive or pertinent negative responses have been documented in the HPI. ROS Other: All systems not noted in ROS Statement are negative. Past Medical History Past Medical History: Diabetes Mellitus, GERD/Reflux, Hyperlipidemia, Hypertension, Syncope Additional Past Medical History / Comment(s): Pt recently admitted to [facility] on 07/21/21 with uncontrolled IDDM and hyperkalemia. Other hx: Recurrent pancreatitis, hypertriglyceridemia, elevated lipase, IDDM type II, UTI, chronic low back pain, bulging discs, dental abscesses in past. History of Any Multi-Drug Resistant Organisms: MRSA Date of last positivie culture/infection: 03/01/23 MDRO Source:: Abdomen Past Surgical History: Tubal Ligation Additional Past Surgical History / Comment(s): Age 7 had VSD repair, tumor removal 03/2023 Past Anesthesia/Blood Transfusion Reactions: No Reported Reaction Past Psychological History: No Psychological Hx Reported Smoking Status: Former smoker, Second hand smoke exposure, Vaper Past Alcohol Use History: None Reported Past Drug Use History: None Reported - Past Family History Mother Family Medical History: No Reported History Additional Family Medical History / Comment(s): Mother was healthy. She is , pt cannot recall cause of . Father Family Medical History: Pneumonia Additional Family Medical History / Comment(s): Father at the age of 67yrs from pneumonia General Exam Limitations: no limitations General appearance: alert, in no apparent distress Head exam: Present: atraumatic, normocephalic, normal inspection Eye exam: Present: normal appearance, PERRL, EOMI. Absent: scleral icterus, conjunctival injection, periorbital swelling ENT exam: Present: normal exam, mucous membranes moist Neck exam: Present: normal inspection, full ROM. Absent: tenderness, meningismus, lymphadenopathy Respiratory exam: Present: normal lung sounds bilaterally. Absent: respiratory distress, wheezes, rales, rhonchi, stridor Cardiovascular Exam: Present: regular rate, normal rhythm, normal heart sounds. Absent: systolic murmur, diastolic murmur, rubs, gallop, clicks GI/Abdominal exam: Present: soft, normal bowel sounds. Absent: distended, tenderness, guarding, rebound, rigid Neurological exam: Present: alert, oriented X3 Skin exam: Present: warm, dry, intact, normal color. Absent: rash Course Vital Signs 03/08/24 03/08/24 09:13 10:03 Temperature 98.6 F Pulse Rate 75 70 Respiratory 18 16 Rate Blood Pressure 155/85 137/62 O2 Sat by Pulse 95 96 Oximetry Medical Decision Making - Medical Decision Making Was pt. sent in by a medical professional or institution (, PA, INSPECTOR BULLET [employer]UGS, urgent care, hospital, or detention...) When possible be specific @ -No Did you speak to anyone other than the patient for history (EMS, parent, family, police, friend...)? What history was obtained from this source @ -No Did you review nursing and triage notes (agree or disagree)? Why? @ -I reviewed and agree with nursing and triage notes Were old charts reviewed (outside hosp., previous admission, EMS record, old EKG, old radiological studies, urgent care reports/EKG's, detention records)? Report findings @ -No old charts were reviewed Differential Diagnosis (chest pain, altered mental status, abdominal pain women, abdominal pain men, vaginal bleeding, weakness, fever, dyspnea, syncope, headache, dizziness, GI bleed, back pain, seizure, CVA, palpatations, mental health, musculoskeletal)? @ -Differential Abdominal Pain Women: Appendicitis, Cholecystitis, diverticulosis, ischemic bowel, pancreatitis, hepatitis, UTI, gastroenteritis, AAA, incarcerated hernia, bowel obstruction, constipation, inflammatory bowel, hepatitis, peptic ulcer disease, splenic infarction, perforated viscus, vulvitis, ovarian torsion, PID, kidney stone, placenta abruption, this is not meant to be an all-inclusive list EKG interpreted by me (3pts min.). @ -None X-rays interpreted by me (1pt min.). @ -None done CT interpreted by me (1pt min.). @ -None done U/S interpreted by me (1pt. min.). @ -None done What testing was considered but not performed or refused? (CT, X-rays, U/S, labs)? Why? @ -None What meds were considered but not given or refused? Why? @ -None Did you discuss the management of the patient with other professionals (professionals i.e. , PA, INSPECT[employer], lab, RT, psych nurse, public health social worker, engineer station mainline, teacher, drug abuse resistance education officer, case specialist)? Give summary @ -No Was smoking cessation discussed for >3mins.? @ -No Was critical care preformed (if so, how long)? @ -No Were there social determinants of health that impacted care today? How? (Homelessness, low income, unemployed, alcoholism, drug addiction, transportation, low edu. Level, literacy, decrease access to med. care, half-way, rehab)? @ -No Was there de-escalation of care discussed even if they declined (Discuss DNR or withdrawal of care, Hospice)? DNR status @ -No What co-morbidities impacted this encounter? (DM, HTN, Smoking, COPD, CAD, Cancer, CVA, ARF, Chemo, Hep., AIDS, mental health diagnosis, sleep apnea, morbid obesity)? @ -Diabetes Was patient admitted / discharged? Hospital course, mention meds given and route, prescriptions, significant lab abnormalities, going to OR and other pertinent info. @ -Discharge patient blood sugars improved at this time. She is advised to follow strict low-carb diet as she supposed to. Patient was treated for nausea vomiting, given hydration. Patient discharged in stable condition. Undiagnosed new problem with uncertain prognosis? @ -No Drug Therapy requiring intensive monitoring for toxicity (Heparin, Nitro, Insulin, Cardizem)? @ -No Were any procedures done? @ -No Diagnosis/symptom? @ -Hyperglycemia, nausea vomiting, diarrhea Acute, or Chronic, or Acute on Chronic? @ -Acute Uncomplicated (without systemic symptoms) or Complicated (systemic symptoms)? @ -Uncomplicated Side effects of treatment? @ -No Exacerbation, Progression, or Severe Exacerbation? @ -No Poses a threat to life or bodily function? How? (Chest pain, USA, [place], pneumonia, PE, COPD, DKA, ARF, appy, cholecystitis, CVA, Diverticulitis, Homicidal, Suicidal, threat to staff... and all critical care pts) @ -No - Lab Data Result diagrams: 03/08/24 09:26 03/08/24 09:26 Lab Results 03/08/24 03/08/24 03/08/24 Range/Units 09:20 09:26 09:26 WBC 8.3 (3.8-10.6) k/uL RBC 4.59 (3.80-5.40) m/uL Hgb 13.1 (11.4-16.0) gm/dL Hct 39.2 (34.0-46.0) % MCV 85.2 (80.0-100.0) fL MCH 28.4 (25.0-35.0) pg MCHC 33.3 (31.0-37.0) g/dL RDW 16.1 H (11.5-15.5) % Plt Count 439 (150-450) k/uL MPV 7.0 Neutrophils % 69 % Lymphocytes % 23 % Monocytes % 4 % Eosinophils % 2 % Basophils % 1 % Neutrophils # 5.7 (1.3-7.7) k/uL Lymphocytes # 1.9 (1.0-4.8) k/uL Monocytes # 0.4 (0-1.0) k/uL Eosinophils # 0.2 (0-0.7) k/uL Basophils # 0.0 (0-0.2) k/uL Anisocytosis Slight Sodium 131 L (137-145) mmol/L Potassium 5.3 H (3.5-5.1) mmol/L Chloride 100 (98-107) mmol/L Carbon Dioxide 19 L (22-30) mmol/L Anion Gap 12 mmol/L BUN 22 H (7-17) mg/dL Creatinine 0.77 (0.52-1.04) mg/dL Est GFR (CKD-EPI)AfAm >90 (>60 ml/min/1.73 sqM) Est GFR (CKD-EPI)NonAf 90 (>60 ml/min/1.73 sqM) Glucose 469 H (74-99) mg/dL POC Glucose (mg/dL) 467 H (70-110) mg/dL POC Glu Hand Striper ID Manoj Sexton Lactic Ac Sepsis Rflx Plasma Lactic Acid Travon (0.7-2.0) mmol/L Calcium 9.0 (8.4-10.2) mg/dL Total Bilirubin 0.6 (0.2-1.3) mg/dL AST 38 H (14-36) U/L ALT 31 (4-34) U/L Alkaline Phosphatase 146 H (38-126) U/L Total Protein 7.0 (6.3-8.2) g/dL Albumin 4.0 (3.5-5.0) g/dL Lipase 191 (23-300) U/L Urine Color Urine Appearance (Clear) Urine pH (5.0-8.0) Ur Specific [place] (1.001-1.035) Urine Protein (Negative) Urine Glucose (UA) (Negative) Urine Ketones (Negative) Urine Blood (Negative) Urine Nitrite (Negative) Urine Bilirubin (Negative) Urine Urobilinogen (<2.0) mg/dL Ur Leukocyte Esterase (Negative) Urine RBC (0-5) /hpf Urine WBC (0-5) /hpf Ur Squamous Epith Cells (0-4) /hpf Urine Bacteria (None) /hpf Urine Mucus (None) /hpf Acetone, Qual Negative (Negative) 03/08/24 03/08/24 03/08/24 Range/Units 09:26 09:49 10:06 WBC (3.8-10.6) k/uL RBC (3.80-5.40) m/uL Hgb (11.4-16.0) gm/dL Hct (34.0-46.0) % MCV (80.0-100.0) fL MCH (25.0-35.0) pg MCHC (31.0-37.0) g/dL RDW (11.5-15.5) % Plt Count (150-450) k/uL MPV Neutrophils % % Lymphocytes % % Monocytes % % Eosinophils % % Basophils % % Neutrophils # (1.3-7.7) k/uL Lymphocytes # (1.0-4.8) k/uL Monocytes # (0-1.0) k/uL Eosinophils # (0-0.7) k/uL Basophils # (0-0.2) k/uL Anisocytosis Sodium (137-145) mmol/L Potassium (3.5-5.1) mmol/L Chloride (98-107) mmol/L Carbon Dioxide (22-30) mmol/L Anion Gap mmol/L BUN (7-17) mg/dL Creatinine (0.52-1.04) mg/dL Est GFR (CKD-EPI)AfAm (>60 ml/min/1.73 sqM) Est GFR (CKD-EPI)NonAf (>60 ml/min/1.73 sqM) Glucose (74-99) mg/dL POC Glucose (mg/dL) 426 H (70-110) mg/dL POC Glu Hand Striper ID Manoj Sexton Lactic Ac Sepsis Rflx Y Plasma Lactic Acid Travon 3.6 H* (0.7-2.0) mmol/L Calcium (8.4-10.2) mg/dL Total Bilirubin (0.2-1.3) mg/dL AST (14-36) U/L ALT (4-34) U/L Alkaline Phosphatase (38-126) U/L Total Protein (6.3-8.2) g/dL Albumin (3.5-5.0) g/dL Lipase (23-300) U/L Urine Color Urine Appearance (Clear) Urine pH (5.0-8.0) Ur Specific [place] (1.001-1.035) Urine Protein (Negative) Urine Glucose (UA) (Negative) Urine Ketones (Negative) Urine Blood (Negative) Urine Nitrite (Negative) Urine Bilirubin (Negative) Urine Urobilinogen (<2.0) mg/dL Ur Leukocyte Esterase (Negative) Urine RBC (0-5) /hpf Urine WBC (0-5) /hpf Ur Squamous Epith Cells (0-4) /hpf Urine Bacteria (None) /hpf Urine Mucus (None) /hpf Acetone, Qual (Negative) 03/08/24 03/08/24 03/08/24 Range/Units 10:32 11:04 12:06 WBC (3.8-10.6) k/uL RBC (3.80-5.40) m/uL Hgb (11.4-16.0) gm/dL Hct (34.0-46.0) % MCV (80.0-100.0) fL MCH (25.0-35.0) pg MCHC (31.0-37.0) g/dL RDW (11.5-15.5) % Plt Count (150-450) k/uL MPV Neutrophils % % Lymphocytes % % Monocytes % % Eosinophils % % Basophils % % Neutrophils # (1.3-7.7) k/uL Lymphocytes # (1.0-4.8) k/uL Monocytes # (0-1.0) k/uL Eosinophils # (0-0.7) k/uL Basophils # (0-0.2) k/uL Anisocytosis Sodium (137-145) mmol/L Potassium (3.5-5.1) mmol/L Chloride (98-107) mmol/L Carbon Dioxide (22-30) mmol/L Anion Gap mmol/L BUN (7-17) mg/dL Creatinine (0.52-1.04) mg/dL Est GFR (CKD-EPI)AfAm (>60 ml/min/1.73 sqM) Est GFR (CKD-EPI)NonAf (>60 ml/min/1.73 sqM) Glucose (74-99) mg/dL POC Glucose (mg/dL) 390 H 327 H (70-110) mg/dL POC Glu Hand Striper ID Manoj Briceno Lactic Ac Sepsis Rflx Plasma Lactic Acid Travon (0.7-2.0) mmol/L Calcium (8.4-10.2) mg/dL Total Bilirubin (0.2-1.3) mg/dL AST (14-36) U/L ALT (4-34) U/L Alkaline Phosphatase (38-126) U/L Total Protein (6.3-8.2) g/dL Albumin (3.5-5.0) g/dL Lipase (23-300) U/L Urine Color Colorless Urine Appearance Clear (Clear) Urine pH 5.5 (5.0-8.0) Ur Specific [place] 1.019 (1.001-1.035) Urine Protein 1+ H (Negative) Urine Glucose (UA) 4+ H (Negative) Urine Ketones Negative (Negative) Urine Blood Negative (Negative) Urine Nitrite Negative (Negative) Urine Bilirubin Negative (Negative) Urine Urobilinogen <2.0 (<2.0) mg/dL Ur Leukocyte Esterase Negative (Negative) Urine RBC 1 (0-5) /hpf Urine WBC 3 (0-5) /hpf Ur Squamous Epith Cells 6 H (0-4) /hpf Urine Bacteria Rare H (None) /hpf Urine Mucus Rare H (None) /hpf Acetone, Qual (Negative) Disposition Clinical Impression: Hyperglycemia, Nausea vomiting and diarrhea Disposition: HOME SELF-CARE Condition: Stable Instructions (If sedation given, give patient instructions): Acute Nausea and Vomiting (ED) Additional Instructions: Please return to the Emergency Department if symptoms worsen or any other concerns. Is patient prescribed a controlled substance at d/c from ED?: No Referrals: [facility] [Primary Care Provider] - 1-2 days Time of Disposition: 12:11
[2024-03-08 09:21] LABS: Glucose,Whole Blood 467 mg/dL (70-110)
[2024-03-08] MEDS: INSULIN REGULAR 100 UNIT/ML VIAL (IV) IV ONE (09:39)
[2024-03-08] MEDS: ONDANSETRON 4 MG/2 ML VIAL IVP STA (09:42)
[2024-03-08] MEDS: SODIUM CHLORIDE 0.9% 2,000 ML IV STA (09:42)
[2024-03-08 09:45] LABS: ALT 31 U/L (4-34); African American GFR (CKD) >90 (>60 ml/min/1.73 sqM); Anion Gap 12 mmol/L; Blood Urea Nitrogen 22 mg/dL (7-17); Carbon Dioxide 19 mmol/L (22-30); Chloride 100 mmol/L (98-107); Glucose 469 mg/dL (74-99); Lipase 191 U/L (23-300); Non-African American GFR(CKD) 90 (>60 ml/min/1.73 sqM); Sodium 131 mmol/L (137-145); Total Bilirubin 0.6 mg/dL (0.2-1.3)
[2024-03-08 09:47] LABS: AST 38 U/L (14-36); Potassium 5.3 mmol/L (3.5-5.1)
[2024-03-08 09:48] LABS: Alkaline Phosphatase 146 U/L (38-126)
[2024-03-08 09:59] LABS: Anisocytosis Slight; Basophils % (A) 1 %; Eosinophils # (A) 0.2 k/uL (0-0.7); Eosinophils % (A) 2 %; HCT 39.2 % (34.0-46.0); HGB 13.1 gm/dL (11.4-16.0); Lymphocytes # (A) 1.9 k/uL (1.0-4.8); Lymphocytes % (A) 23 %; MCH 28.4 pg (25.0-35.0); MCHC 33.3 g/dL (31.0-37.0); MCV 85.2 fL (80.0-100.0); Monocytes # (A) 0.4 k/uL (0-1.0); Monocytes % (A) 4 %; Neutrophils # (A) 5.7 k/uL (1.3-7.7); Neutrophils % (A) 69 %; Platelet Count 439 k/uL (150-450); RBC 4.59 m/uL (3.80-5.40); RDW 16.1 % (11.5-15.5); WBC 8.3 k/uL (3.8-10.6)
[2024-03-08 10:08] LABS: Glucose,Whole Blood 426 mg/dL (70-110)
[2024-03-08] MEDS: INSULIN ASPART (NovoLOG) 100 UNIT/ML VIAL SQ ONE ×2 (10:23→11:28)
[2024-03-08 10:44] LABS: Appearance,Urine Clear (Clear); Bacteria,Urine Rare /hpf; Bilirubin,Urine Negative (Negative); Blood,Urine Negative (Negative); Color,Urine Colorless; Glucose,Urine (UA) 4+ (Negative); Ketones,Urine Negative (Negative); Leukocyte Esterase,Urine Negative (Negative); Mucus,Urine Rare /hpf; Nitrite,Urine Negative (Negative); PH, Urine 5.5 (5.0-8.0); Protein,Urine 1+ (Negative); RBC,Urine 1 /hpf (0-5); Specific Gravity,Urine 1.019 (1.001-1.035); Squamous Epithelial Cell,Urine 6 /hpf (0-4); Urobilinogen,Urine <2.0 mg/dL (<2.0); WBC,Urine 3 /hpf (0-5)
[2024-03-08 11:05] LABS: Glucose,Whole Blood 390 mg/dL (70-110)
[2024-03-08 12:08] LABS: Glucose,Whole Blood 327 mg/dL (70-110)
[2024-03-08] MEDS: KETOROLAC 15 MG/ML 1 ML VIAL IVP STA (12:28)
[2024-03-08 12:31] VITALS: BP 142/74; PULSE 65; RESP 18; TEMP 98.4
== END 2024-03-08 12:41 | disposition home or self-care (01) ==
LOC: EC 09:11
DX: R11.2 Nausea with vomiting, unspecified (principal); R19.7 Diarrhea, unspecified; E11.65 Type 2 diabetes mellitus with hyperglycemia; F17.290 Nicotine dependence, other tobacco product, uncomplicated; Z79.4 Long term (current) use of insulin; Z88.1 Allergy status to other antibiotic agents
CPT/HCPCS: 99284; 96374; 96375; 96361 ×2; 36415; 80053; 82009; 83605; 83690; 85025; 81001; J2405; J1885

== ENCOUNTER 2024-03-12 13:31 | Emergency (ER) | payer MEDICARE, OTHER ==
--- NOTE | 2024-03-12 13:39 | ED ---
Chest Pain HPI - General Stated Complaint: chest pain Time Seen by Provider: 03/12/24 13:31 Source: patient, EMS, RN notes reviewed Mode of arrival: EMS Limitations: no limitations - History of Present Illness Initial Comments: 53-year-old female presents emergency department chief complaint of chest pain for days. Patient has been seen in the emergency room for similar complaints. Patient states very similar pain that she had the past. She is unsure what her last blood sugar was. Patient is known diabetic. Denies any shortness of breath no cough or cold-like symptoms. Patient states she has no back pain on the usual no other associated symptoms no headache no fever. - Related Data Home Medications Medication Instructions Recorded Confirmed Atorvastatin [Lipitor] 80 mg PO HS 06/25/19 02/17/24 lisinopriL 40 mg PO DAILY 09/24/20 02/17/24 traZODone HCL 50 mg PO HS 01/11/21 02/17/24 INSULIN ASPART (NovoLOG) [NovoLOG 20 unit SQ AC-TID 11/26/22 02/17/24 (formulary)] Albuterol Inhaler [Ventolin Hfa 2 puff INHALATION RT-QID PRN 03/01/23 02/17/24 Inhaler] Insulin Glargine,Hum.rec.anlog 30 units SQ DAILY 07/30/23 02/17/24 [Lantus Solostar Pen] Dulaglutide [Trulicity] 1.5 mg SQ DIRECTED 02/17/24 02/17/24 Ezetimibe [Zetia] 10 mg PO HS 02/17/24 02/17/24 Insulin Aspart (Niacinamide) 8 units SQ DIRECTED 02/17/24 02/17/24 [Fiasp 100 Unit/ml Flextouch Pen] Nystatin 100,000 Unit/gm Powd 1 applic TOPICAL BID PRN 02/17/24 02/17/24 [Mycostatin Powder] Pantoprazole [Protonix] 40 mg PO DAILY 02/17/24 02/17/24 metFORMIN HCL [Glucophage] 500 mg PO BID 02/17/24 02/17/24 Previous Rx's Medication Instructions Recorded amLODIPine [Norvasc] 10 mg PO DAILY #30 tab 03/11/23 hydrALAZINE HCL [Apresoline] 25 mg PO BID #60 tab 03/11/23 Mupirocin 2% Oint [Bactroban 2% 1 applic TOPICAL TID #22 gm 02/17/24 Oint] Ondansetron Odt [Zofran Odt] 4 mg PO Q8HR PRN #10 tab 02/17/24 Sulfamethox-Tmp 800-160Mg [Bactrim 2 tab PO Q12HR #28 tab 02/17/24 DS 800-160 mg] Allergies Allergy/AdvReac Type Severity Reaction Status Date / Time levofloxacin [From Levaquin] Allergy Rash/Hives Verified 03/12/24 13:47 Review of Systems ROS Statement: Those systems with pertinent positive or pertinent negative responses have been documented in the HPI. ROS Other: All systems not noted in ROS Statement are negative. EKG Findings - EKG Comments: EKG Findings:: EKG performed at 13: 42 sinus rhythm rate of 72 [place] 155 QRS 86 QT/QTc 373/398 there is no significant ST elevation depression - EKG Results: EKG: interpreted by PEYTON Past Medical History Past Medical History: Diabetes Mellitus, GERD/Reflux, Hyperlipidemia, Hypertension, Syncope Additional Past Medical History / Comment(s): Pt recently admitted to [facility] on 07/21/21 with uncontrolled IDDM and hyperkalemia. Other hx: Recurrent pa ncreatitis, hypertriglyceridemia, elevated lipase, IDDM type II, UTI, chronic low back pain, bulging discs, dental abscesses in past. History of Any Multi-Drug Resistant Organisms: MRSA Date of last positivie culture/infection: 03/01/23 MDRO Source:: Abdomen Past Surgical History: Tubal Ligation Additional Past Surgical History / Comment(s): Age 7 had VSD repair, tumor removal 03/2023 Past Anesthesia/Blood Transfusion Reactions: No Reported Reaction Past Psychological History: No Psychological Hx Reported Smoking Status: Former smoker, Second hand smoke exposure, Vaper Past Alcohol Use History: None Reported Past Drug Use History: None Reported - Past Family History Mother Family Medical History: No Reported History Additional Family Medical History / Comment(s): Mother was healthy. She is , pt cannot recall cause of . Father Family Medical History: Pneumonia Additional Family Medical History / Comment(s): Father at the age of 67yrs from pneumonia General Exam Limitations: no limitations General appearance: alert, in no apparent distress Head exam: Present: atraumatic, normocephalic, normal inspection Eye exam: Present: normal appearance, PERRL, EOMI. Absent: scleral icterus, conjunctival injection, periorbital swelling ENT exam: Present: normal exam, normal oropharynx, mucous membranes moist Neck exam: Present: normal inspection, full ROM. Absent: tenderness, meningismus, lymphadenopathy Respiratory exam: Present: normal lung sounds bilaterally. Absent: respiratory distress, wheezes, rales, rhonchi, stridor Cardiovascular Exam: Present: regular rate, normal rhythm, normal heart sounds. Absent: systolic murmur, diastolic murmur, rubs, gallop, clicks GI/Abdominal exam: Present: soft, normal bowel sounds. Absent: distended, tenderness, guarding, rebound, rigid Course Vital Signs 03/12/24 13:45 Temperature 98.6 F Pulse Rate 76 Respiratory 17 Rate Blood Pressure 115/64 O2 Sat by Pulse 95 Oximetry Chest Pain MDM - MDM Was pt. sent in by a medical professional or institution (, PA, SENIOR PHP WEB DEVELOPER, urgent care, hospital, or half-way...) When possible be specific @ -No Did you speak to anyone other than the patient for history (EMS, parent, family, police, friend...)? What history was obtained from this source @ -No Did you review nursing and triage notes (agree or disagree)? Why? @ -I reviewed and agree with nursing and triage notes Were old charts reviewed (outside hosp., previous admission, EMS record, old EKG, old radiological studies, urgent care reports/EKG's, half-way records)? Report findings @ -No old charts were reviewed Differential Diagnosis (chest pain, altered mental status, abdominal pain women, abdominal pain men, vaginal bleeding, weakness, fever, dyspnea, syncope, headache, dizziness, GI bleed, back pain, seizure, CVA, palpatations, mental health, musculoskeletal)? @ -Differential Chest Pain: Stable Angina, Unstable Angina, STEMI, NSTEMI Aortic Dissection, Pneumothorax, Musculoskeletal, Esophageal Spasm GERD, Cholecystitis, Pancreatitis, Zoster, this is not meant to be an all-inclusive list. EKG interpreted by me (3pts min.). @ -As above X-rays interpreted by me (1pt min.). @ -Chest x-ray shows no acute cardiopulmonary process. CT interpreted by me (1pt min.). @ -None done U/S interpreted by me (1pt. min.). @ -None done What testing was considered but not performed or refused? (CT, X-rays, U/S, labs)? Why? @ -None What meds were considered but not given or refused? Why? @ -None Did you discuss the management of the patient with other professionals (professionals i.e. , PA, SENIOR PHP WEB DEVELOPER, lab, RT, psych nurse, vp digital marketing social media and crm, large animal husbandry technician, teacher, youth probation officer, protective services case worker)? Give summary @ -No Was smoking cessation discussed for >3mins.? @ -No Was critical care preformed (if so, how long)? @ -No Were there social determinants of health that impacted care today? How? (Homelessness, low income, unemployed, alcoholism, drug addiction, transportation, low edu. Level, literacy, decrease access to med. care, snf, rehab)? @ -No Was there de-escalation of care discussed even if they declined (Discuss DNR or withdrawal of care, Hospice)? DNR status @ -No What co-morbidities impacted this encounter? (DM, HTN, Smoking, COPD, CAD, Cancer, CVA, ARF, Chemo, Hep., AIDS, mental health diagnosis, sleep apnea, morbid obesity)? @ -Diabetes Was patient admitted / discharged? Hospital course, mention meds given and route, prescriptions, significant lab abnormalities, going to OR and other pertinent info. @ -[Discharge patient presented for chest pain reproducible chest pain typical chest pain. Patient feels greatly improved will be discharged in stable conditi on return pressure discussed. Undiagnosed new problem with uncertain prognosis? @ -No Drug Therapy requiring intensive monitoring for toxicity (Heparin, Nitro, Insulin, Cardizem)? @ -No Were any procedures done? @ -No Diagnosis/symptom? @ -Atypical chest pain, chest wall pain Acute, or Chronic, or Acute on Chronic? @ -Acute Uncomplicated (without systemic symptoms) or Complicated (systemic symptoms)? @ -Uncomplicated Side effects of treatment? @ -No Exacerbation, Progression, or Severe Exacerbation? @ -No Poses a threat to life or bodily function? How? (Chest pain, [place], ID, pneumonia, PE, COPD, DKA, ARF, appy, cholecystitis, CVA, Diverticulitis, Homicidal, Suicidal, threat to staff... and all critical care pts) @ -No Disposition Clinical Impression: Atypical chest pain Disposition: HOME SELF-CARE Condition: Stable Instructions (If sedation given, give patient instructions): Chest Pain (ED) Additional Instructions: Please return to the Emergency Department if symptoms worsen or any other concerns. Is patient prescribed a controlled substance at d/c from ED?: No Referrals: [facility] [Primary Care Provider] - 1-2 days Time of Disposition: 16:10
[2024-03-12 13:46] VITALS: TEMP 98.6
--- NOTE | 2024-03-12 14:29 | XR ---
EXAMINATION TYPE: XR chest 2V DATE OF EXAM: 03/12/2024 2:17 PM COMPARISON: Chest radiographs from 02/22/2024 TECHNIQUE: XR chest 2V Frontal and lateral views of the chest. CLINICAL INDICATION:Female, 53 years old with history of Chest Pain; FINDINGS: Lungs/Pleura: There is no evidence of pleural effusion, focal consolidation, or pneumothorax. Pulmonary vascularity: Unremarkable. Heart/mediastinum: Cardiomediastinal silhouette is unremarkable. Musculoskeletal: No acute osseous pathology. Midline sternotomy wires are noted and stable. IMPRESSION: No acute cardiopulmonary disease/process. [facility], , 03/12/2024 2:26 PM
[2024-03-12 14:51] LABS: Glucose,Whole Blood 351 mg/dL (70-110)
[2024-03-12 14:53] LABS: Anisocytosis Slight; Basophils % (A) 1 %; Eosinophils # (A) 0.3 k/uL (0-0.7); Eosinophils % (A) 4 %; HCT 39.6 % (34.0-46.0); HGB 12.9 gm/dL (11.4-16.0); Lymphocytes # (A) 1.3 k/uL (1.0-4.8); Lymphocytes % (A) 18 %; MCH 27.7 pg (25.0-35.0); MCHC 32.6 g/dL (31.0-37.0); Mean Platelet Volume 6.8; Monocytes # (A) 0.4 k/uL (0-1.0); Monocytes % (A) 5 %; Neutrophils # (A) 5.3 k/uL (1.3-7.7); Neutrophils % (A) 71 %; Platelet Count 420 k/uL (150-450); RBC 4.66 m/uL (3.80-5.40); RDW 16.3 % (11.5-15.5); WBC 7.5 k/uL (3.8-10.6)
[2024-03-12 15:01] LABS: INR 0.9 (<1.2); Partial Thromboplastin Time 22.5 sec (22.0-30.0); Prothrombin Time 10.2 sec (10.0-12.5)
[2024-03-12] MEDS: INSULIN ASPART (NovoLOG) 100 UNIT/ML VIAL SQ ONE (15:34)
[2024-03-12] MEDS: INSULIN REGULAR 100 UNIT/ML VIAL (IV) IV ONE (15:35)
[2024-03-12 15:55] LABS: ALT 33 U/L (4-34); AST 49 U/L (14-36); African American GFR (CKD) >90 (>60 ml/min/1.73 sqM); Albumin 3.3 g/dL (3.5-5.0); Alkaline Phosphatase 125 U/L (38-126); Anion Gap 9 mmol/L; Blood Urea Nitrogen 15 mg/dL (7-17); Calcium 8.5 mg/dL (8.4-10.2); Carbon Dioxide 19 mmol/L (22-30); Chloride 104 mmol/L (98-107); Glucose 345 mg/dL (74-99); Magnesium 1.4 mg/dL (1.6-2.3); Non-African American GFR(CKD) >90 (>60 ml/min/1.73 sqM); Potassium 4.7 mmol/L (3.5-5.1); Sodium 132 mmol/L (137-145); Total Bilirubin 0.4 mg/dL (0.2-1.3); Total Protein 6.1 g/dL (6.3-8.2)
[2024-03-12 16:05] LABS: Glucose,Whole Blood 292 mg/dL (70-110)
[2024-03-12] MEDS: KETOROLAC 15 MG/ML 1 ML VIAL IVP STA (16:22)
[2024-03-12 16:30] VITALS: BP 138/83; PULSE 75; RESP 20
== END 2024-03-12 16:30 | disposition home or self-care (01) ==
LOC: EC 13:31
DX: R07.89 Other chest pain (principal); Z77.22 Contact with and (suspected) exposure to environmental tobacco smoke (acute) (chronic); Z88.1 Allergy status to other antibiotic agents
CPT/HCPCS: 36415; 93005; 80053; 83735; 84484; 85025; 85610; 85730; 71046; 99285; 96374; J1885

== ENCOUNTER 2024-03-15 02:40 | Emergency (ER) | payer MEDICARE, OTHER ==
[2024-03-15 02:47] VITALS: TEMP 98
[2024-03-15] MEDS: SODIUM CHLORIDE 0.9% 500 ML 500 ML IV STA (03:42)
[2024-03-15 03:48] LABS: ALT 36 U/L (4-34); AST 58 U/L (14-36); African American GFR (CKD) >90 (>60 ml/min/1.73 sqM); Albumin 3.7 g/dL (3.5-5.0); Alkaline Phosphatase 153 U/L (38-126); Amylase 40 U/L (30-110); Anion Gap 8 mmol/L; Blood Urea Nitrogen 14 mg/dL (7-17); Calcium 8.9 mg/dL (8.4-10.2); Carbon Dioxide 23 mmol/L (22-30); Chloride 103 mmol/L (98-107); Glucose 233 mg/dL (74-99); Lipase 167 U/L (23-300); Non-African American GFR(CKD) >90 (>60 ml/min/1.73 sqM); Sodium 134 mmol/L (137-145); Total Bilirubin 0.7 mg/dL (0.2-1.3); Total Protein 6.5 g/dL (6.3-8.2)
[2024-03-15] MEDS: METOCLOPRAMIDE 5 MG/ML 2 ML VIAL IVP STA (03:49)
[2024-03-15 05:12] LABS: Anisocytosis Slight; HGB 12.8 gm/dL (11.4-16.0); MCH 27.3 pg (25.0-35.0); MCHC 32.8 g/dL (31.0-37.0); MCV 83.2 fL (80.0-100.0); Mean Platelet Volume 7.9; Platelet Count 442 k/uL (150-450); RBC 4.68 m/uL (3.80-5.40); RDW 16.2 % (11.5-15.5); WBC 8.3 k/uL (3.8-10.6)
[2024-03-15] MEDS: MAG HYDROX/AL HYDROX/SIMETH 30 ML, HYOSCYAMINE ELIXIR 10 ML, LIDOCAINE VISCOUS 2% 10 ML PO STA (06:05)
[2024-03-15 06:08] VITALS: BP 144/85; PULSE 71; RESP 15
--- NOTE | 2024-03-15 06:31 | ED ---
Nausea/Vomiting/Diarrhea HPI - General Chief complaint: Nausea/Vomiting/Diarrhea Stated complaint: NV Time Seen by Provider: 03/15/24 03:11 Source: patient, EMS Mode of arrival: EMS Limitations: no limitations - History of Present Illness Initial comments: This patient is a 53-year-old woman with history of diabetes who presents with complaint that she has been having some heartburn, some nausea and vomiting. Patient states that she had eaten earlier and then following dinner she noted some nausea. She had an episode of vomiting which was followed by heartburn sensation in the substernal and epigastric area. Patient denies any other symptoms. No fever or chills. No change in bowel movements. MD complaint: nausea, vomiting Onset/Timin -: hour(s) Description of Vomiting: food contents Associated Abdominal Pain: No Location: epigastric Radiation: none Severity: mild Quality: other (Burning) Consistency: constant Improves with: none Worsens with: none Associated Symptoms: nausea/vomiting - Related Data Home Medications Medication Instructions Recorded Confirmed Atorvastatin [Lipitor] 80 mg PO HS 06/25/19 02/17/24 lisinopriL 40 mg PO DAILY 09/24/20 02/17/24 traZODone HCL 50 mg PO HS 01/11/21 02/17/24 INSULIN ASPART (NovoLOG) [NovoLOG 20 unit SQ AC-TID 11/26/22 02/17/24 (formulary)] Albuterol Inhaler [Ventolin Hfa 2 puff INHALATION RT-QID PRN 03/01/23 02/17/24 Inhaler] Insulin Glargine,Hum.rec.anlog 30 units SQ DAILY 07/30/23 02/17/24 [Lantus Solostar Pen] Dulaglutide [Trulicity] 1.5 mg SQ DIRECTED 02/17/24 02/17/24 Ezetimibe [Zetia] 10 mg PO HS 02/17/24 02/17/24 Insulin Aspart (Niacinamide) 8 units SQ DIRECTED 02/17/24 02/17/24 [Fiasp 100 Unit/ml Flextouch Pen] Nystatin 100,000 Unit/gm Powd 1 applic TOPICAL BID PRN 02/17/24 02/17/24 [Mycostatin Powder] Pantoprazole [Protonix] 40 mg PO DAILY 02/17/24 02/17/24 metFORMIN HCL [Glucophage] 500 mg PO BID 02/17/24 02/17/24 Previous Rx's Medication Instructions Recorded amLODIPine [Norvasc] 10 mg PO DAILY #30 tab 03/11/23 hydrALAZINE HCL [Apresoline] 25 mg PO BID #60 tab 03/11/23 Mupirocin 2% Oint [Bactroban 2% 1 applic TOPICAL TID #22 gm 02/17/24 Oint] Ondansetron Odt [Zofran Odt] 4 mg PO Q8HR PRN #10 tab 02/17/24 Sulfamethox-Tmp 800-160Mg [Bactrim 2 tab PO Q12HR #28 tab 02/17/24 DS 800-160 mg] Dicyclomine [Bentyl] 20 mg PO QID #15 tablet 03/15/24 Allergies Allergy/AdvReac Type Severity Reaction Status Date / Time levofloxacin [From Levaquin] Allergy Rash/Hives Verified 03/17/24 15:12 Review of Systems ROS Statement: Those systems with pertinent positive or pertinent negative responses have been documented in the HPI. ROS Other: All systems not noted in ROS Statement are negative. Constitutional: Denies: fever, chills, weakness Respiratory: Denies: cough, dyspnea Cardiovascular: Denies: chest pain, palpitations, edema Gastrointestinal: Reports: abdominal pain, nausea, vomiting. Denies: diarrhea, constipation, hematemesis, melena, hematochezia Genitourinary: Denies: dysuria, hematuria Musculoskeletal: Denies: back pain Skin: Denies: rash Neurological: Denies: headache, weakness Past Medical History Past Medical History: Diabetes Mellitus, GERD/Reflux, Hyperlipidemia, Hypertension, Syncope Additional Past Medical History / Comment(s): Pt recently admitted to [facility] on 07/21/21 with uncontrolled IDDM and hyperkalemia. Other hx: Recurrent pancreatitis, hypertriglyceridemia, elevated lipase, IDDM type II, UTI, chronic low back pain, bulging discs, dental abscesses in past. History of Any Multi-Drug Resistant Organisms: MRSA Date of last positivie culture/infection: 03/01/23 MDRO Source:: Abdomen Past Surgical History: Tubal Ligation Additional Past Surgical History / Comment(s): Age 7 had VSD repair, tumor removal 03/2023 Past Anesthesia/Blood Transfusion Reactions: No Reported Reaction Past Psychological History: No Psychological Hx Reported Smoking Status: Former smoker, Second hand smoke exposure, Vaper Past Alcohol Use History: None Reported Past Drug Use History: None Reported - Past Family History Mother Family Medical History: No Reported History Additional Family Medical History / Comment(s): Mother was healthy. She is , pt cannot recall cause of . Father Family Medical History: Pneumonia Additional Family Medical History / Comment(s): Father at the age of 67yrs from pneumonia General Exam General appearance: alert, in no apparent distress Head exam: Present: atraumatic, normocephalic Eye exam: Present: normal appearance. Absent: scleral icterus, conjunctival injection ENT exam: Present: normal oropharynx Neck exam: Present: normal inspection Respiratory exam: Present: normal lung sounds bilaterally. Absent: respiratory distress, wheezes, rales, rhonchi, stridor, accessory muscle use Cardiovascular Exam: Present: regular rate, normal rhythm, normal heart sounds. Absent: systolic murmur, diastolic murmur, rubs, gallop GI/Abdominal exam: Present: soft. Absent: distended, tenderness, guarding, rebound, rigid, mass, pulsatile mass Extremities exam: Present: normal inspection, normal capillary refill. Absent: pedal edema, calf tenderness Back exam: Present: normal inspection. Absent: CVA tenderness (R), CVA tenderness (L) Neurological exam: Present: alert Skin exam: Present: warm, dry, intact, normal color. Absent: rash Course Vital Signs 03/15/24 03/15/24 02:41 06:08 Temperature 98.0 F Pulse Rate 70 71 Respiratory 16 15 Rate Blood Pressure 139/77 144/85 O2 Sat by Pulse 95 95 Oximetry Medical Decision Making - Medical Decision Making Was pt. sent in by a medical professional or institution (, PA, REAL ESTATE CONSULTANT, urgent care, hospital, or prison...) When possible be specific @ -[No] Did you speak to anyone other than the patient for history (EMS, parent, family, police, friend...)? What history was obtained from this source @ -[No] Did you review nursing and triage notes (agree or disagree)? Why? @ -[I reviewed and agree with nursing and triage notes] Were old charts reviewed (outside hosp., previous admission, EMS record, old EKG, old radiological studies, urgent care reports/EKG's, prison records)? Report findings @ -[No old charts were reviewed] Differential Diagnosis (chest pain, altered mental status, abdominal pain women, abdominal pain men, vaginal bleeding, weakness, fever, dyspnea, syncope, headache, dizziness, GI bleed, back pain, seizure, CVA, palpatations, mental health, musculoskeletal)? @ -[Differential Abdominal Pain Women: Appendicitis, Cholecystitis, diverticulosis, ischemic bowel, pancreatitis, hepatitis, UTI, gastroenteritis, AAA, incarcerated hernia, bowel obstruction, constipation, inflammatory bowel, hepatitis, peptic ulcer disease, splenic infarction, perforated viscus, vulvitis, ovarian torsion, PID, kidney stone, placenta abruption, this is not meant to be an all-inclusive list EKG interpreted by me (3pts min.). @ -[As above] X-rays interpreted by me (1pt min.). @ -[None done] CT interpreted by me (1pt min.). @ -[None done] U/S interpreted by me (1pt. min.). @ -[None done] What testing was considered but not performed or refused? (CT, X-rays, U/S, l abs)? Why? @ -[None] What meds were considered but not given or refused? Why? @ -[None] Did you discuss the management of the patient with other professionals (professionals i.e. , PA, REAL ESTATE CONSULTANT, lab, RT, psych nurse, geriatric social work professor, second hand, teacher, communications officer, case management assistant)? Give summary @ -[No] Was smoking cessation discussed for >3mins.? @ -[No] Was critical care preformed (if so, how long)? @ -[No] Were there social determinants of health that impacted care today? How? (Homelessness, low income, unemployed, alcoholism, drug addiction, transportation, low edu. Level, literacy, decrease access to med. care, long term, rehab)? @ -[No] Was there de-escalation of care discussed even if they declined (Discuss DNR or withdrawal of care, Hospice)? DNR status @ -[No] What co-morbidities impacted this encounter? (DM, HTN, Smoking, COPD, CAD, Cancer, CVA, ARF, Chemo, Hep., AIDS, mental health diagnosis, sleep apnea, morbid obesity)? @ -[None] Was patient admitted / discharged? Hospital course, mention meds given and route, prescriptions, significant lab abnormalities, going to OR and other pertinent info. @ -[Patient is a 53-year-old woman with history of diabetes presenting with nausea vomiting and heartburn following that episode. The patient's physical exam is benign. The workup is unremarkable and the patient did have relief of symptoms with medication here. On reevaluation she is feeling better and at this point stable for discharge. Discussed appropriate further care and follow- up as well as return parameters. Undiagnosed new problem with uncertain prognosis? @ -[No] Drug Therapy requiring intensive monitoring for toxicity (Heparin, Nitro, Insulin, Cardizem)? @ -[No] Were any procedures done? @ -[No] Diagnosis/symptom? @ -[Acute nausea and vomiting Acute hyperglycemia and diabetic patient Acute, or Chronic, or Acute on Chronic? @ -[Acute Uncomplicated (without systemic symptoms) or Complicated (systemic symptoms)? @ -[Uncomplicated Side effects of treatment? @ -[No] Exacerbation, Progression, or Severe Exacerbation? @ -[No] Poses a threat to life or bodily function? How? (Chest pain, [place], [place], pneumonia, PE, COPD, DKA, ARF, appy, cholecystitis, CVA, Diverticulitis, Homicidal, Suicidal, threat to staff... and all critical care pts) @ -[No] All treatments are based on ideal body weight as in ED triage - Lab Data Result diagrams: 03/15/24 03:27 03/15/24 03:27 Lab Results 03/15/24 03/15/24 Range/Units 03:27 03:27 WBC 8.3 (3.8-10.6) k/uL RBC 4.68 (3.80-5.40) m/uL Hgb 12.8 (11.4-16.0) gm/dL Hct 39.0 (34.0-46.0) % MCV 83.2 (80.0-100.0) fL MCH 27.3 (25.0-35.0) pg MCHC 32.8 (31.0-37.0) g/dL RDW 16.2 H (11.5-15.5) % Plt Count 442 (150-450) k/uL MPV 7.9 Neutrophils % (Manual) 44 % Lymphocytes % (Manual) 50 % Monocytes % (Manual) 4 % Eosinophils % (Manual) 2 % Neutrophils # (Manual) 3.65 (1.3-7.7) k/uL Lymphocytes # (Manual) 4.15 (1.0-4.8) k/uL Monocytes # (Manual) 0.33 (0-1.0) k/uL Eosinophils # (Manual) 0.17 (0-0.7) k/uL Nucleated RBCs 0 (0-0) /100 WBC Manual Slide Review Performed Anisocytosis Slight Sodium 134 L (137-145) mmol/L Potassium 4.0 (3.5-5.1) mmol/L Chloride 103 (98-107) mmol/L Carbon Dioxide 23 (22-30) mmol/L Anion Gap 8 mmol/L BUN 14 (7-17) mg/dL Creatinine 0.70 (0.52-1.04) mg/dL Est GFR (CKD-EPI)AfAm >90 (>60 ml/min/1.73 sqM) Est GFR (CKD-EPI)NonAf >90 (>60 ml/min/1.73 sqM) Glucose 233 H (74-99) mg/dL Calcium 8.9 (8.4-10.2) mg/dL Total Bilirubin 0.7 (0.2-1.3) mg/dL AST 58 H (14-36) U/L ALT 36 H (4-34) U/L Alkaline Phosphatase 153 H (38-126) U/L Total Protein 6.5 (6.3-8.2) g/dL Albumin 3.7 (3.5-5.0) g/dL Amylase 40 (30-110) U/L Lipase 167 (23-300) U/L Disposition Clinical Impression: Nausea & vomiting Disposition: HOME SELF-CARE Condition: Good Instructions (If sedation given, give patient instructions): Acute Nausea and Vomiting (ED) Prescriptions: Dicyclomine [Bentyl] 20 mg PO QID #15 tablet Is patient prescribed a controlled substance at d/c from ED?: No [facility] [Primary Care Provider] - 1-2 days
[2024-03-15] MEDS: DICYCLOMINE 20 MG TAB PO STA (06:37)
[2024-03-15 06:40] LABS: Eosinophils # (M) 0.17 k/uL (0-0.7); Lymphocytes # (M) 4.15 k/uL (1.0-4.8); Monocytes # (M) 0.33 k/uL (0-1.0); Neutrophils # (M) 3.65 k/uL (1.3-7.7); Neutrophils % (M) 44 %; Nucleated Red Blood Cells 0 /100 WBC (0-0); Total Cells Counted 100
== END 2024-03-15 06:40 | disposition home or self-care (01) ==
LOC: EC 02:40
DX: R11.2 Nausea with vomiting, unspecified (principal); F17.290 Nicotine dependence, other tobacco product, uncomplicated; Z88.1 Allergy status to other antibiotic agents
CPT/HCPCS: 36415; 80053; 82150; 83690; 85025; 99284; 96374; 96361; J2765

== ENCOUNTER 2024-03-17 15:00 | Emergency (ER) | payer MEDICARE, OTHER ==
[2024-03-17 15:12] VITALS: RESP 20
--- NOTE | 2024-03-17 15:50 | ED ---
Nausea/Vomiting/Diarrhea HPI - General Source: patient, EMS, RN notes reviewed Mode of arrival: EMS Limitations: no limitations - History of Present Illness MD complaint: vomiting Onset/Timin -: days(s) Location: diffuse Severity scale (1-10): 10 Consistency: constant <Teo Mcgraw - Last Filed: 03/17/24 15:48> - General Source: patient, EMS, RN notes reviewed, old records reviewed Mode of arrival: EMS Limitations: no limitations - History of Present Illness MD complaint: vomiting -: days(s) Location: diffuse Severity: mild Consistency: constant Improves with: none Worsens with: none <Hemanth Tobin - Last Filed: 03/17/24 20:09> - General Chief complaint: Nausea/Vomiting/Diarrhea Stated complaint: Sick Time Seen by Provider: 03/17/24 15:17 - History of Present Illness Initial comments: Quick note: This is a 53-year-old female presenting for vomiting once last night and once this morning. Endorses constant, diffuse abdominal pain (10/10). Patient endorses associated decreased appetite and sleep. Denies ongoing naus ea. Denies recent sick contact or suspected undercooked food intake. Denies fever, chills, chest pain, dyspnea. (Teo Mcgraw) This is a 53-year-old female for nausea vomiting when she woke up this morning. Patient has not vomited since but is concerned for around (Hemanth Tobin) - Related Data Home Medications Medication Instructions Recorded Confirmed Atorvastatin [Lipitor] 80 mg PO HS 06/25/19 02/17/24 lisinopriL 40 mg PO DAILY 09/24/20 02/17/24 traZODone HCL 50 mg PO HS 01/11/21 02/17/24 INSULIN ASPART (NovoLOG) [NovoLOG 20 unit SQ AC-TID 11/26/22 02/17/24 (formulary)] Albuterol Inhaler [Ventolin Hfa 2 puff INHALATION RT-QID PRN 03/01/23 02/17/24 Inhaler] Insulin Glargine,Hum.rec.anlog 30 units SQ DAILY 07/30/23 02/17/24 [Lantus Solostar Pen] Dulaglutide [Trulicity] 1.5 mg SQ DIRECTED 02/17/24 02/17/24 Ezetimibe [Zetia] 10 mg PO HS 02/17/24 02/17/24 Insulin Aspart (Niacinamide) 8 units SQ DIRECTED 02/17/24 02/17/24 [Fiasp 100 Unit/ml Flextouch Pen] Nystatin 100,000 Unit/gm Powd 1 applic TOPICAL BID PRN 02/17/24 02/17/24 [Mycostatin Powder] Pantoprazole [Protonix] 40 mg PO DAILY 02/17/24 02/17/24 metFORMIN HCL [Glucophage] 500 mg PO BID 02/17/24 02/17/24 Previous Rx's Medication Instructions Recorded amLODIPine [Norvasc] 10 mg PO DAILY #30 tab 03/11/23 hydrALAZINE HCL [Apresoline] 25 mg PO BID #60 tab 03/11/23 Mupirocin 2% Oint [Bactroban 2% 1 applic TOPICAL TID #22 gm 02/17/24 Oint] Ondansetron Odt [Zofran Odt] 4 mg PO Q8HR PRN #10 tab 02/17/24 Sulfamethox-Tmp 800-160Mg [Bactrim 2 tab PO Q12HR #28 tab 02/17/24 DS 800-160 mg] Dicyclomine [Bentyl] 20 mg PO QID #15 tablet 03/15/24 Allergies Allergy/AdvReac Type Severity Reaction Status Date / Time levofloxacin [From Levaquin] Allergy Rash/Hives Verified 03/17/24 15:12 Review of Systems ROS Other: All systems not noted in ROS Statement are negative. <Teo Mcgraw - Last Filed: 03/17/24 15:48> ROS Other: All systems not noted in ROS Statement are negative. <Hemanth Tobin - Last Filed: 03/17/24 20:09> ROS Statement: Those systems with pertinent positive or pertinent negative responses have been documented in the HPI. Past Medical History Past Medical History: Diabetes Mellitus, GERD/Reflux, Hyperlipidemia, Hypertension, Syncope Additional Past Medical History / Comment(s): Pt recently admitted to [facility] on 07/21/21 with uncontrolled IDDM and hyperkalemia. Other hx: Recurrent pancreatitis, hypertriglyceridemia, elevated lipase, IDDM type II, UTI, chronic low back pain, bulging discs, dental abscesses in past. History of Any Multi-Drug Resistant Organisms: MRSA Date of last positivie culture/infection: 03/01/23 MDRO Source:: Abdomen Past Surgical History: Tubal Ligation Additional Past Surgical History / Comment(s): Age 7 had VSD repair, tumor removal 03/2023 Past Anesthesia/Blood Transfusion Reactions: No Reported Reaction Past Psychological History: No Psychological Hx Reported Smoking Status: Former smoker, Second hand smoke exposure, Vaper Past Alcohol Use History: None Reported Past Drug Use History: None Reported - Past Family History Mother Family Medical History: No Reported History Additional Family Medical History / Comment(s): Mother was healthy. She is , pt cannot recall cause of . Father Family Medical History: Pneumonia Additional Family Medical History / Comment(s): Father at the age of 67yrs from pneumonia <Teo Mcgraw - Last Filed: 03/17/24 15:48> General Exam Limitations: no limitations <Teo Mcgraw - Last Filed: 03/17/24 15:48> General appearance: alert, in no apparent distress Head exam: Present: atraumatic, normocephalic, normal inspection Eye exam: Present: normal appearance, PERRL, EOMI. Absent: scleral icterus, conjunctival injection, periorbital swelling ENT exam: Present: normal exam, mucous membranes moist Neck exam: Present: normal inspection. Absent: tenderness, meningismus, lymphadenopathy Respiratory exam: Present: normal lung sounds bilaterally. Absent: respiratory distress, wheezes, rales, rhonchi, stridor Cardiovascular Exam: Present: regular rate, normal rhythm, normal heart sounds. Absent: systolic murmur, diastolic murmur, rubs, gallop, clicks GI/Abdominal exam: Present: soft, normal bowel sounds. Absent: distended, tenderness, guarding, rebound, rigid Extremities exam: Present: normal inspection, full ROM, normal capillary refill. Absent: tenderness, pedal edema, joint swelling, calf tenderness Back exam: Present: normal inspection Neurological exam: Present: alert, oriented X3, CN II-XII intact Psychiatric exam: Present: normal affect, normal mood Skin exam: Present: warm, dry, intact, normal color. Absent: rash <Hemanth Tobin - Last Filed: 03/17/24 20:09> - General Exam Comments Initial Comments: Visual Physical Exam Vital signs reviewed General: Well-appearing, nontoxic, no acute distress. Head: Normocephalic, atraumatic Eyes: PERRLA, EOMI ENT: Airway patent Chest: Nonlabored breathing Skin: No visual rash, normal skin tone Neuro: Alert and oriented 3 Musculoskeletal: No gross abnormalities (Teo Mcgraw) Course <Hemanth Tobin - Last Filed: 03/17/24 20:09> Vital Signs 03/17/24 15:10 Temperature 98.7 F Pulse Rate 76 Respiratory 20 Rate Blood Pressure 125/69 O2 Sat by Pulse 96 Oximetry - Reevaluation(s) Reevaluation #1: 03/17/24 20:08 Medical records reviewed (Hemanth Tobin) Reevaluation #2: 03/17/24 20:08 Patient symptoms (Hemanth Tobin) Reevaluation #3: 03/17/24 20:09 Patient informed of results and questions answered (Hemanth Tobni) Reevaluation #4: Was pt. sent in by a medical professional or institution (, PA, PERFORMANCE ENGINEER, urgent care, hospital, or care home...) When possible be specific @ -no Did you speak to anyone other than the patient for history (EMS, parent, family, police, friend...)? What history was obtained from this source @ -no Did you review nursing and triage notes (agree or disagree)? Why? @ -agree Are old charts reviewed (outside hosp., previous admission, EMS record, old EKG, old radiological studies, urgent care reports/EKG's, care home records)? Report findings @ -yes Differential Diagnosis (chest pain, altered mental status, abdominal pain women, abdominal pain men, vaginal bleeding, weakness, fever, dyspnea, syncope, headache, dizziness, GI bleed, back pain, seizure, CVA, palpatations, mental health, musculoskeletal)? @ -prior EKG interpreted by me (3pts min.). @ -yes X-rays interpreted by me (1pt min.). @ -yes negative for acute disease CT interpreted by me (1pt min.). @ -no U/S interpreted by me (1pt. min.). @ -no What testing was considered but not performed or refused? (CT, X-rays, U/S, labs)? Why? @ -none What meds were considered but not given or refused? Why? @ -none Did you discuss the management of the patient with other professionals (professionals i.e. , PA, PERFORMANCE ENGINEER, lab, RT, psych nurse, marriage and family social worker, trial lawyer, teacher, ict customer support officer, case repairer)? Give summary @ -no Was smoking cessation discussed for >3mins.? @ -no Was critical care preformed (if so, how long)? @ -no Were there social determinants of health that impacted care today? How? (Homelessness, low income, unemployed, alcoholism, drug addiction, transportation, low edu. Level, literacy, decrease access to med. care, nursing home, rehab)? @ -none Was there de-escalation of care discussed even if they declined (Discuss DNR or withdrawal of care, Hospice)? DNR status @ -no What co-morbidities impacted this encounter? (DM, HTN, Smoking, COPD, CAD, Cancer, CVA, ARF, Chemo, Hep., AIDS, mental health diagnosis, sleep apnea, morbid obesity)? @ -none Was patient admitted / discharged? Hospital course, mention meds given and route, prescriptions, significant lab abnormalities, going to OR and other pertinent info. @ - Undiagnosed new problem with uncertain prognosis? @ -no Drug Therapy requiring intensive monitoring for toxicity (Heparin, Nitro, Insulin, Cardizem)? @ -no Were any procedures done? @ -no Diagnosis/symptom? @ - Acute, or Chronic, or Acute on Chronic? @ -Acute Uncomplicated (without systemic symptoms) or Complicated (systemic symptoms)? @ -Complicated Side effects of treatment? @ -no Exacerbation, Progression, or Severe Exacerbation? @ -exacerbation Poses a threat to life or bodily function? How? (Chest pain, [place], [place], pneumonia, PE, COPD, DKA, ARF, appy, cholecystitis, CVA, Diverticulitis, Homicidal, Suicidal, threat to staff... and all critical care pts) @ -yes (Hemanth Tobin) Reevaluation #5: Differential Abdominal Pain Women: Appendicitis, Cholecystitis, diverticulosis, ischemic bowel, pancreatitis, hepatitis, UTI, gastroenteritis, AAA, incarcerated hernia, bowel obstruction, constipation, inflammatory bowel, hepatitis, peptic ulcer disease, splenic infarction, perforated viscus, vulvitis, ovarian torsion, PID, kidney stone, placenta abruption, this is not meant to be an all-inclusive list (Hemanth Tobin) Medical Decision Making <Teo Mcgraw - Last Filed: 03/17/24 15:48> <Hemanth Tobin - Last Filed: 03/17/24 20:09> - Medical Decision Making I completed the quick note portion of this chart signed DOTTY Peraza (Teo Mcgraw) 53 female for nausea vomiting resolved. Patient will be given nausea and vomiting medication and discharged home (Hemanth Tobin) Disposition <Teo Mcgraw - Last Filed: 03/17/24 15:48> Is patient prescribed a controlled substance at d/c from ED?: No Time of Disposition: 20:00 <Hemanth Tobin - Last Filed: 03/17/24 20:09> Clinical Impression: Medical non-compliance, Nausea & vomiting, Abdominal pain Disposition: HOME SELF-CARE Condition: Good Instructions (If sedation given, give patient instructions): Acute Nausea and Vomiting (ED) Referrals: [facility] [Primary Care Provider] - 1-2 days
[2024-03-17] MEDS: HYDROmorphone 1 MG/ML 1 ML SYRINGE IM STA (20:38)
[2024-03-17] MEDS: ONDANSETRON 4 MG ODT STARTER PACK 2 TAB BTL PO STA (20:39)
[2024-03-17] MEDS: PROCHLORPERAZINE 10 MG TAB PO STA (20:39)
[2024-03-17 20:47] VITALS: BP 122/71; PULSE 73; TEMP 98.3
== END 2024-03-17 20:47 | disposition home or self-care (01) ==
LOC: EC 15:00
DX: R11.2 Nausea with vomiting, unspecified (principal); Z91.199 Patient's noncompliance with other medical treatment and regimen due to unspecified reason; R10.84 Generalized abdominal pain; F17.290 Nicotine dependence, other tobacco product, uncomplicated; Z88.1 Allergy status to other antibiotic agents
CPT/HCPCS: 99284; 96372; S0183; J1171; S0119

== ENCOUNTER 2024-03-27 15:46 | Emergency (ER) | payer MEDICARE, OTHER ==
[2024-03-27 16:47] LABS: Anisocytosis Slight; Basophils # (A) 0.1 k/uL (0-0.2); Basophils % (A) 1 %; Eosinophils # (A) 0.4 k/uL (0-0.7); Eosinophils % (A) 3 %; HCT 43.1 % (34.0-46.0); HGB 13.9 gm/dL (11.4-16.0); Hypochromasia Slight; Lymphocytes # (A) 3.1 k/uL (1.0-4.8); Lymphocytes % (A) 23 %; MCH 27.3 pg (25.0-35.0); MCHC 32.3 g/dL (31.0-37.0); MCV 84.6 fL (80.0-100.0); Monocytes # (A) 0.5 k/uL (0-1.0); Monocytes % (A) 4 %; Neutrophils # (A) 9.4 k/uL (1.3-7.7); Neutrophils % (A) 69 %; Platelet Count 606 k/uL (150-450); RBC 5.09 m/uL (3.80-5.40); WBC 13.6 k/uL (3.8-10.6)
[2024-03-27 16:57] LABS: ALT 27 U/L (4-34); AST 41 U/L (14-36); African American GFR (CKD) >90 (>60 ml/min/1.73 sqM); Albumin 4.2 g/dL (3.5-5.0); Alkaline Phosphatase 149 U/L (38-126); Anion Gap 13 mmol/L; Blood Urea Nitrogen 16 mg/dL (7-17); Calcium 9.4 mg/dL (8.4-10.2); Carbon Dioxide 19 mmol/L (22-30); Chloride 98 mmol/L (98-107); Glucose 447 mg/dL (74-99); Lipase 267 U/L (23-300); Non-African American GFR(CKD) >90 (>60 ml/min/1.73 sqM); Potassium 4.4 mmol/L (3.5-5.1); Sodium 130 mmol/L (137-145); Total Bilirubin 0.6 mg/dL (0.2-1.3); Total Protein 7.5 g/dL (6.3-8.2)
--- NOTE | 2024-03-27 18:01 | XR ---
EXAMINATION TYPE: XR KUB DATE OF EXAM: 03/27/2024 5:39 PM COMPARISON: 10/01/2023 CLINICAL INDICATION: Female, 53 years old with history of abdominal pain; [facility] TECHNIQUE: One radiographic view of the abdomen was obtained. FINDINGS: The bowel gas pattern is nonspecific without dilated loops of small or large bowel. . Fecal material and gas are demonstrated throughout the colon and rectum. There is no evidence for organome morgan or pneumoperitoneum. The osseous structures are intact. No abnormal calcifications are present . Bilateral pelvic surgical clips. IMPRESSION: Nonspecific bowel gas pattern without radiographic evidence for acute process. [facility], , 03/27/2024 5:59 PM
--- NOTE | 2024-03-27 18:22 | ED ---
Abdominal Pain HPI - General Chief Complaint: Abdominal Pain Stated Complaint: ABD pain Time Seen by Provider: 03/27/24 15:47 Source: patient, EMS, RN notes reviewed Mode of arrival: EMS Limitations: no limitations - History of Present Illness Initial Comments: 53-year-old female presents emerged from with chief complaint of abdominal pain. She presents via EMS. Patient states pain has been ongoing for last 2 or 3 days. Patient states does wax and wane not persistent pain. No change in bowel habits no nausea vomit no fevers patient states that she has been eating a large amount of rice and her blood sugar has been elevated. Denies any chest pain or shortness of breath no other complaints. - Related Data Home Medications Medication Instructions Recorded Confirmed Atorvastatin [Lipitor] 80 mg PO HS 06/25/19 02/17/24 lisinopriL 40 mg PO DAILY 09/24/20 02/17/24 traZODone HCL 50 mg PO HS 01/11/21 02/17/24 INSULIN ASPART (NovoLOG) [NovoLOG 20 unit SQ AC-TID 11/26/22 02/17/24 (formulary)] Albuterol Inhaler [Ventolin Hfa 2 puff INHALATION RT-QID PRN 03/01/23 02/17/24 Inhaler] Insulin Glargine,Hum.rec.anlog 30 units SQ DAILY 07/30/23 02/17/24 [Lantus Solostar Pen] Dulaglutide [Trulicity] 1.5 mg SQ DIRECTED 02/17/24 02/17/24 Ezetimibe [Zetia] 10 mg PO HS 02/17/24 02/17/24 Insulin Aspart (Niacinamide) 8 units SQ DIRECTED 02/17/24 02/17/24 [Fiasp 100 Unit/ml Flextouch Pen] Nystatin 100,000 Unit/gm Powd 1 applic TOPICAL BID PRN 02/17/24 02/17/24 [Mycostatin Powder] Pantoprazole [Protonix] 40 mg PO DAILY 02/17/24 02/17/24 metFORMIN HCL [Glucophage] 500 mg PO BID 02/17/24 02/17/24 Previous Rx's Medication Instructions Recorded amLODIPine [Norvasc] 10 mg PO DAILY #30 tab 03/11/23 hydrALAZINE HCL [Apresoline] 25 mg PO BID #60 tab 03/11/23 Mupirocin 2% Oint [Bactroban 2% 1 applic TOPICAL TID #22 gm 02/17/24 Oint] Ondansetron Odt [Zofran Odt] 4 mg PO Q8HR PRN #10 tab 02/17/24 Sulfamethox-Tmp 800-160Mg [Bactrim 2 tab PO Q12HR #28 tab 02/17/24 DS 800-160 mg] Dicyclomine [Bentyl] 20 mg PO QID #15 tablet 03/15/24 Allergies Allergy/AdvReac Type Severity Reaction Status Date / Time levofloxacin [From Levaquin] Allergy Rash/Hives Verified 03/27/24 16:06 Review of Systems ROS Statement: Those systems with pertinent positive or pertinent negative responses have been documented in the HPI. ROS Other: All systems not noted in ROS Statement are negative. Past Medical History Past Medical History: Diabetes Mellitus, GERD/Reflux, Hyperlipidemia, Hypertension, Syncope Additional Past Medical History / Comment(s): Pt recently admitted to [facility] on 07/21/21 with uncontrolled IDDM and hyperkalemia. Other hx: Recurrent pancreatitis, hypertriglyceridemia, elevated lipase, IDDM type II, UTI, chronic low back pain, bulging discs, dental abscesses in past. History of Any Multi-Drug Resistant Organisms: MRSA Date of last positivie culture/infection: 03/01/23 MDRO Source:: Abdomen Past Surgical History: Tubal Ligation Additional Past Surgical History / Comment(s): Age 7 had VSD repair, tumor removal 03/2023 Past Anesthesia/Blood Transfusion Reactions: No Reported Reaction Past Psychological History: No Psychological Hx Reported Smoking Status: Former smoker, Second hand smoke exposure, Vaper Past Alcohol Use History: None Reported Past Drug Use History: None Reported - Past Family History Mother Family Medical History: No Reported History Additional Family Medical History / Comment(s): Mother was healthy. She is , pt cannot recall cause of . Father Family Medical History: Pneumonia Additional Family Medical History / Comment(s): Father at the age of 67yrs from pneumonia General Exam Limitations: no limitations General appearance: alert, in no apparent distress Head exam: Present: atraumatic, normocephalic, normal inspection Respiratory exam: Present: normal lung sounds bilaterally. Absent: respiratory distress, wheezes, rales, rhonchi, stridor Cardiovascular Exam: Present: regular rate, normal rhythm, normal heart sounds. Absent: systolic murmur, diastolic murmur, rubs, gallop, clicks GI/Abdominal exam: Present: soft, normal bowel sounds. Absent: distended, tenderness (No localized abdominal tenderness), guarding, rebound, rigid Course Vital Signs 03/27/24 16:06 Temperature 99.1 F Pulse Rate 77 Respiratory 18 Rate Blood Pressure 121/64 O2 Sat by Pulse 97 Oximetry Medical Decision Making - Medical Decision Making Was pt. sent in by a medical professional or institution (, PA, SENIOR MANUFACTURING SUPERVISOR, urgent care, hospital, or halfway...) When possible be specific @ -No Did you speak to anyone other than the patient for history (EMS, parent, family, police, friend...)? What history was obtained from this source @ -No Did you review nursing and triage notes (agree or disagree)? Why? @ -I reviewed and agree with nursing and triage notes Were old charts reviewed (outside hosp., previous admission, EMS record, old EKG, old radiological studies, urgent care reports/EKG's, halfway records)? Report findings @ -No old charts were reviewed Differential Diagnosis (chest pain, altered mental status, abdominal pain women, abdominal pain men, vaginal bleeding, weakness, fever, dyspnea, syncope, headache, dizziness, GI bleed, back pain, seizure, CVA, palpatations, mental health, musculoskeletal)? @ -Differential Abdominal Pain Women: Appendicitis, Cholecystitis, diverticulosis, ischemic bowel, pancreatitis, hepatitis, UTI, gastroenteritis, AAA, incarcerated hernia, bowel obstruction, constipation, inflammatory bowel, hepatitis, peptic ulcer disease, splenic infarction, perforated viscus, vulvitis, ovarian torsion, PID, kidney stone, placenta abruption, this is not meant to be an all-inclusive list EKG interpreted by me (3pts min.). @ -None X-rays interpreted by me (1pt min.). @ -KUB showing no acute intra-abdominal process. CT interpreted by me (1pt min.). @ -None done U/S interpreted by me (1pt. min.). @ -None done What testing was considered but not performed or refused? (CT, X-rays, U/S, labs)? Why? @ -None What meds were considered but not given or refused? Why? @ -None Did you discuss the management of the patient with other professionals (professionals i.e. , PA, SENIOR MANUFACTURING SUPERVISOR, lab, RT, psych nurse, pediatric social worker, brush sander, teacher, hydrological technical officer, case management assistant)? Give summary @ -No Was smoking cessation discussed for >3mins.? @ -No Was critical care preformed (if so, how long)? @ -No Were there social determinants of health that impacted care today? How? (Homelessness, low income, unemployed, alcoholism, drug addiction, transportation, low edu. Level, literacy, decrease access to med. care, nursing home, rehab)? @ -No Was there de-escalation of care discussed even if they declined (Discuss DNR or withdrawal of care, Hospice)? DNR status @ -No What co-morbidities impacted this encounter? (DM, HTN, Smoking, COPD, CAD, Cancer, CVA, ARF, Chemo, Hep., AIDS, mental health diagnosis, sleep apnea, morbid obesity)? @ -None Was patient admitted / discharged? Hospital course, mention meds given and route, prescriptions, significant lab abnormalities, going to OR and other pertinent info. @ -Discharged patient has no localized tenderness upon palpation we did discuss return parameters given patient has minimal leukocytosis patient was treated for hyperglycemia. Patient discharged in stable condition. Undiagnosed new problem with uncertain prognosis? @ -No Drug Therapy requiring intensive monitoring for toxicity (Heparin, Nitro, Insulin, Cardizem)? @ -No Were any procedures done? @ -No Diagnosis/symptom? @ -Abdominal pain, hyperglycemia Acute, or Chronic, or Acute on Chronic? @ -Acute Uncomplicated (without systemic symptoms) or Complicated (systemic symptoms)? @ -Uncomplicated Side effects of treatment? @ -No Exacerbation, Progression, or Severe Exacerbation? @ -No Poses a threat to life or bodily function? How? (Chest pain, USA, [place], pneumonia, PE, COPD, DKA, ARF, appy, cholecystitis, CVA, Diverticulitis, Homicidal, Suicidal, threat to staff... and all critical care pts) @ -No - Lab Data Result diagrams: 03/27/24 16:35 03/27/24 16:35 Lab Results 03/27/24 03/27/24 Range/Units 16:35 16:35 WBC 13.6 H (3.8-10.6) k/uL RBC 5.09 (3.80-5.40) m/uL Hgb 13.9 (11.4-16.0) gm/dL Hct 43.1 (34.0-46.0) % MCV 84.6 (80.0-100.0) fL MCH 27.3 (25.0-35.0) pg MCHC 32.3 (31.0-37.0) g/dL RDW 16.0 H (11.5-15.5) % Plt Count 606 H (150-450) k/uL MPV 7.0 Neutrophils % 69 % Lymphocytes % 23 % Monocytes % 4 % Eosinophils % 3 % Basophils % 1 % Neutrophils # 9.4 H (1.3-7.7) k/uL Lymphocytes # 3.1 (1.0-4.8) k/uL Monocytes # 0.5 (0-1.0) k/uL Eosinophils # 0.4 (0-0.7) k/uL Basophils # 0.1 (0-0.2) k/uL Hypochromasia Slight Anisocytosis Slight Sodium 130 L (137-145) mmol/L Potassium 4.4 (3.5-5.1) mmol/L Chloride 98 (98-107) mmol/L Carbon Dioxide 19 L (22-30) mmol/L Anion Gap 13 mmol/L BUN 16 (7-17) mg/dL Creatinine 0.74 (0.52-1.04) mg/dL Est GFR (CKD-EPI)AfAm >90 (>60 ml/min/1.73 sqM) Est GFR (CKD-EPI)NonAf >90 (>60 ml/min/1.73 sqM) Glucose 447 H (74-99) mg/dL Calcium 9.4 (8.4-10.2) mg/dL Total Bilirubin 0.6 (0.2-1.3) mg/dL AST 41 H (14-36) U/L ALT 27 (4-34) U/L Alkaline Phosphatase 149 H (38-126) U/L Total Protein 7.5 (6.3-8.2) g/dL Albumin 4.2 (3.5-5.0) g/dL Lipase 267 (23-300) U/L Disposition Clinical Impression: Abdominal pain, Hyperglycemia Disposition: HOME SELF-CARE Condition: Stable Instructions (If sedation given, give patient instructions): Abdominal Pain (ED) Additional Instructions: Please return to the Emergency Department if symptoms worsen or any other concerns. Is patient prescribed a controlled substance at d/c from ED?: No Referrals: [facility] [Primary Care Provider] - 1-2 days Time of Disposition: 18:21
[2024-03-27] MEDS: KETOROLAC 15 MG/ML 1 ML VIAL IVP STA (18:36)
[2024-03-27] MEDS: SODIUM CHLORIDE 0.9% 1,000 ML IV ONE (18:37)
[2024-03-27] MEDS: INSULIN REGULAR 100 UNIT/ML VIAL (IV) IV ONE (19:01)
[2024-03-27] MEDS: INSULIN ASPART (NovoLOG) 100 UNIT/ML VIAL SQ ONE (19:02)
[2024-03-27 19:31] VITALS: BP 128/76; PULSE 74; RESP 16; TEMP 98.4
[2024-03-27 19:37] LABS: Appearance,Urine Cloudy (Clear); Bilirubin,Urine Negative (Negative); Blood,Urine Negative (Negative); Color,Urine Yellow; Glucose,Urine (UA) 2+ (Negative); Hyaline Casts,Urine 10 /lpf (0-2); Ketones,Urine Negative (Negative); Leukocyte Esterase,Urine Negative (Negative); Mucus,Urine Rare /hpf; Nitrite,Urine Negative (Negative); PH, Urine 5.5 (5.0-8.0); Protein,Urine 3+ (Negative); RBC,Urine 2 /hpf (0-5); Specific Gravity,Urine 1.023 (1.001-1.035); Squamous Epithelial Cell,Urine 7 /hpf (0-4); WBC,Urine 7 /hpf (0-5)
== END 2024-03-27 19:47 | disposition home or self-care (01) ==
LOC: EC 15:46
DX: R73.9 Hyperglycemia, unspecified (principal); Z77.22 Contact with and (suspected) exposure to environmental tobacco smoke (acute) (chronic); Z88.1 Allergy status to other antibiotic agents
CPT/HCPCS: 36415; 80053; 83690; 85025; 81001; 74018; 99284; 96374; 96361; J1885

== ENCOUNTER 2024-03-29 15:03 | Emergency (ER) | payer MEDICARE ==
--- NOTE | 2024-03-29 15:27 | ED ---
General Adult HPI - General Chief complaint: Nausea/Vomiting/Diarrhea Stated complaint: Nausea, vomiting Time Seen by Provider: 03/29/24 15:04 Source: patient, EMS, RN notes reviewed Mode of arrival: EMS Limitations: no limitations - History of Present Illness Initial comments: 53-year-old female presents emergency department via EMS chief complaint of n ausea vomiting minimal diarrhea. Patient states that she has no abdominal pain localized at this time. No fevers or chills no chest pain or shortness of breath. Patient's blood sugar is elevated but is chronically she is a poorly controlled diabetic. - Related Data Home Medications Medication Instructions Recorded Confirmed Atorvastatin [Lipitor] 80 mg PO HS 06/25/19 02/17/24 lisinopriL 40 mg PO DAILY 09/24/20 02/17/24 traZODone HCL 50 mg PO HS 01/11/21 02/17/24 INSULIN ASPART (NovoLOG) [NovoLOG 20 unit SQ AC-TID 11/26/22 02/17/24 (formulary)] Albuterol Inhaler [Ventolin Hfa 2 puff INHALATION RT-QID PRN 03/01/23 02/17/24 Inhaler] Insulin Glargine,Hum.rec.anlog 30 units SQ DAILY 07/30/23 02/17/24 [Lantus Solostar Pen] Dulaglutide [Trulicity] 1.5 mg SQ DIRECTED 02/17/24 02/17/24 Ezetimibe [Zetia] 10 mg PO HS 02/17/24 02/17/24 Insulin Aspart (Niacinamide) 8 units SQ DIRECTED 02/17/24 02/17/24 [Fiasp 100 Unit/ml Flextouch Pen] Nystatin 100,000 Unit/gm Powd 1 applic TOPICAL BID PRN 02/17/24 02/17/24 [Mycostatin Powder] Pantoprazole [Protonix] 40 mg PO DAILY 02/17/24 02/17/24 metFORMIN HCL [Glucophage] 500 mg PO BID 02/17/24 02/17/24 Previous Rx's Medication Instructions Recorded amLODIPine [Norvasc] 10 mg PO DAILY #30 tab 03/11/23 hydrALAZINE HCL [Apresoline] 25 mg PO BID #60 tab 03/11/23 Mupirocin 2% Oint [Bactroban 2% 1 applic TOPICAL TID #22 gm 02/17/24 Oint] Ondansetron Odt [Zofran Odt] 4 mg PO Q8HR PRN #10 tab 02/17/24 Sulfamethox-Tmp 800-160Mg [Bactrim 2 tab PO Q12HR #28 tab 02/17/24 DS 800-160 mg] Dicyclomine [Bentyl] 20 mg PO QID #15 tablet 03/15/24 Ondansetron Odt [Zofran Odt] 4 mg PO Q8HR PRN #10 tab 03/29/24 Allergies Allergy/AdvReac Type Severity Reaction Status Date / Time levofloxacin [From Levaquin] Allergy Rash/Hives Verified 03/29/24 15:06 Review of Systems ROS Statement: Those systems with pertinent positive or pertinent negative responses have been documented in the HPI. ROS Other: All systems not noted in ROS Statement are negative. Past Medical History Past Medical History: Diabetes Mellitus, GERD/Reflux, Hyperlipidemia, Hypertension, Syncope Additional Past Medical History / Comment(s): Pt recently admitted to [facility] on 07/21/21 with uncontrolled IDDM and hyperkalemia. Other hx: Recurrent pancreatitis, hypertriglyceridemia, elevated lipase, IDDM type II, UTI, chronic low back pain, bulging discs, dental abscesses in past. History of Any Multi-Drug Resistant Organisms: MRSA Date of last positivie culture/infection: 03/01/23 MDRO Source:: Abdomen Past Surgical History: Tubal Ligation Additional Past Surgical History / Comment(s): Age 7 had VSD repair, tumor removal 03/2023 Past Anesthesia/Blood Transfusion Reactions: No Reported Reaction Past Psychological History: No Psychological Hx Reported Smoking Status: Former smoker, Second hand smoke exposure, Vaper Past Alcohol Use History: None Reported Past Drug Use History: None Reported - Past Family History Mother Family Medical History: No Reported History Additional Family Medical History / Comment(s): Mother was healthy. She is , pt cannot recall cause of . Father Family Medical History: Pneumonia Additional Family Medical History / Comment(s): Father at the age of 67yrs from pneumonia General Exam Limitations: no limitations General appearance: alert, in no apparent distress Head exam: Present: atraumatic, normocephalic, normal inspection Respiratory exam: Present: normal lung sounds bilaterally. Absent: respiratory distress, wheezes, rales, rhonchi, stridor Cardiovascular Exam: Present: regular rate, normal rhythm, normal heart sounds. Absent: systolic murmur, diastolic murmur, rubs, gallop, clicks GI/Abdominal exam: Present: soft, normal bowel sounds. Absent: distended, tenderness, guarding, rebound, rigid Neurological exam: Present: alert, oriented X3, CN II-XII intact Course Vital Signs 03/29/24 03/29/24 15:07 15:33 Temperature 99.0 F 98.9 F Pulse Rate 74 Respiratory 18 Rate Blood Pressure 118/65 O2 Sat by Pulse 96 Oximetry Medical Decision Making - Medical Decision Making Was pt. sent in by a medical professional or institution (, PA, RETIREMENT ASSISTANT, urgent care, hospital, or [place] [facility] [place]...) When possible be specific @ -No Did you speak to anyone other than the patient for history (EMS, parent, family, police, friend...)? What history was obtained from this source @ -No Did you review nursing and triage notes (agree or disagree)? Why? @ -I reviewed and agree with nursing and triage notes Were old charts reviewed (outside hosp., previous admission, EMS record, old EKG, old radiological studies, urgent care reports/EKG's, [place] health [facility] facility records)? Report findings @ -No old charts were reviewed Differential Diagnosis (chest pain, altered mental status, abdominal pain women, abdominal pain men, vaginal bleeding, weakness, fever, dyspnea, syncope, headache, dizziness, GI bleed, back pain, seizure, CVA, palpatations, mental health, musculoskeletal)? @ -[Differential Abdominal Pain Women: Appendicitis, Cholecystitis, diverticulosis, ischemic bowel, pancreatitis, hepatitis, UTI, gastroenteritis, AAA, incarcerated hernia, bowel obstruction, constipation, inflammatory bowel, hepatitis, peptic ulcer disease, splenic infarction, perforated viscus, vulvitis, ovarian torsion, PID, kidney stone, placenta abruption, this is not meant to be an all-inclusive list EKG interpreted by me (3pts min.). @ -None X-rays interpreted by me (1pt min.). @ -None done CT interpreted by me (1pt min.). @ -None done U/S interpreted by me (1pt. min.). @ -None done What testing was considered but not performed or refused? (CT, X-rays, U/S, labs)? Why? @ -None What meds were considered but not given or refused? Why? @ -None Did you discuss the management of the patient with other professionals (professionals i.e. , PA, RETIREMENT ASSISTANT, lab, RT, psych nurse, social media senior associate, aitchbone breaker, teacher, fire management officer, catalytic case operator)? Give summary @ -No Was smoking cessation discussed for >3mins.? @ -No Was critical care preformed (if so, how long)? @ -No Were there social determinants of health that impacted care today? How? (Homelessness, low income, unemployed, alcoholism, drug addiction, transportation, low edu. Level, literacy, decrease access to med. care, care home, rehab)? @ -No Was there de-escalation of care discussed even if they declined (Discuss DNR or withdrawal of care, Hospice)? DNR status @ -No What co-morbidities impacted this encounter? (DM, HTN, Smoking, COPD, CAD, Cancer, CVA, ARF, Chemo, Hep., AIDS, mental health diagnosis, sleep apnea, morbid obesity)? @ -Diabetes Was patient admitted / discharged? Hospital course, mention meds given and route, prescriptions, significant lab abnormalities, going to OR and other pertinent info. @ -Discharge patient presented for nausea vomiting vomiting has resolved. Patient did have hyperglycemia which is a recurrent issue for patient did recommend further testing patient Clines states that she feels well we discussed other dietary changes as she has had a poor diet. Undiagnosed new problem with uncertain prognosis? @ -No Drug Therapy requiring intensive monitoring for toxicity (Heparin, Nitro, Insulin, Cardizem)? @ -No Were any procedures done? @ -No Diagnosis/symptom? @ - nausea vomiting Acute, or Chronic, or Acute on Chronic? @ -Acute Uncomplicated (without systemic symptoms) or Complicated (systemic symptoms)? @ -Complicated Side effects of treatment? @ -No Exacerbation, Progression, or Severe Exacerbation? @ -No Poses a threat to life or bodily function? How? (Chest pain, [place], [place], pneumonia, PE, COPD, DKA, ARF, appy, cholecystitis, CVA, Diverticulitis, Homicidal, Suicidal, threat to staff... and all critical care pts) @ -No - Lab Data Lab Results 03/29/24 Range/Units 16:02 POC Glucose (mg/dL) 490 H (70-110) mg/dL POC Glu Cotton Weigher Operator ID Jaime Granados Disposition Clinical Impression: Nausea & vomiting Disposition: HOME SELF-CARE Condition: Stable Instructions (If sedation given, give patient instructions): Acute Nausea and Vomiting (ED) Additional Instructions: Please return to the Emergency Department if symptoms worsen or any other concerns. Prescriptions: Ondansetron Odt [Zofran Odt] 4 mg PO Q8HR PRN #10 tab PRN Reason: Nausea Is patient prescribed a controlled substance at d/c from ED?: No Referrals: [facility] [Primary Care Provider] - 1-2 days Time of Disposition: 16:12
[2024-03-29 15:34] VITALS: RESP 18; TEMP 98.9
[2024-03-29] MEDS: INSULIN ASPART (NovoLOG) 100 UNIT/ML VIAL SQ ONE ×3 (15:34→17:14)
[2024-03-29] MEDS: METOCLOPRAMIDE 5 MG/ML 2 ML VIAL IM STA (15:35)
[2024-03-29 16:03] LABS: Glucose,Whole Blood 490 mg/dL (70-110)
[2024-03-29] MEDS: KETOROLAC 15 MG/ML 1 ML VIAL IM STA (16:11)
[2024-03-29 16:44] LABS: Glucose,Whole Blood 493 mg/dL (70-110)
[2024-03-29 17:17] VITALS: BP 123/71; PULSE 76
== END 2024-03-29 17:21 | disposition home or self-care (01) ==
LOC: EC 15:03
DX: R11.2 Nausea with vomiting, unspecified (principal); F17.290 Nicotine dependence, other tobacco product, uncomplicated; E11.65 Type 2 diabetes mellitus with hyperglycemia; Z79.4 Long term (current) use of insulin; Z79.84 Long term (current) use of oral hypoglycemic drugs; Z88.1 Allergy status to other antibiotic agents
CPT/HCPCS: 36415; 99284; 96372; J2765; J1885

== ENCOUNTER 2024-04-01 20:11 | Emergency (ER) | payer MEDICARE ==
[2024-04-01 20:25] VITALS: RESP 18
[2024-04-01 20:26] LABS: Glucose,Whole Blood 541 mg/dL (70-110)
--- NOTE | 2024-04-01 20:55 | XR ---
EXAMINATION TYPE: XR chest 2V DATE OF EXAM: 04/01/2024 8:51 PM COMPARISON: Previous chest radiograph, most recently dated 03/12/2024. CLINICAL INDICATION: Female, 53 years old with history of cough; [facility] TECHNIQUE: XR chest 2V Frontal and lateral views of the chest. FINDINGS: Lungs/Pleura: There is no evidence of pleural effusion, focal consolidation, or pneumothorax. Pulmonary vascularity: Unremarkable. Heart/mediastinum: Cardiomegaly. Median sternotomy wires. Musculoskeletal: No acute osseous pathology. Other findings: None IMPRESSION: No acute cardiopulmonary disease/process. [facility], , 04/01/2024 8:53 PM
[2024-04-01 21:48] LABS: Anisocytosis Slight; Basophils # (A) 0.1 k/uL (0-0.2); Basophils % (A) 1 %; Eosinophils # (A) 0.3 k/uL (0-0.7); Eosinophils % (A) 2 %; HCT 39.7 % (34.0-46.0); HGB 12.9 gm/dL (11.4-16.0); Lymphocytes # (A) 3.7 k/uL (1.0-4.8); Lymphocytes % (A) 31 %; MCH 27.2 pg (25.0-35.0); MCHC 32.4 g/dL (31.0-37.0); MCV 83.9 fL (80.0-100.0); Monocytes # (A) 0.6 k/uL (0-1.0); Monocytes % (A) 5 %; Neutrophils # (A) 7.2 k/uL (1.3-7.7); Neutrophils % (A) 60 %; Platelet Count 565 k/uL (150-450); RBC 4.73 m/uL (3.80-5.40); RDW 16.2 % (11.5-15.5)
[2024-04-01 21:54] LABS: ALT 24 U/L (4-34); AST 31 U/L (14-36); African American GFR (CKD) 71 (>60 ml/min/1.73 sqM); Alkaline Phosphatase 148 U/L (38-126); Anion Gap 11 mmol/L; Blood Urea Nitrogen 24 mg/dL (7-17); Calcium 9.2 mg/dL (8.4-10.2); Carbon Dioxide 19 mmol/L (22-30); Chloride 100 mmol/L (98-107); Non-African American GFR(CKD) 62 (>60 ml/min/1.73 sqM); Potassium 4.8 mmol/L (3.5-5.1); Sodium 130 mmol/L (137-145); Total Bilirubin 0.4 mg/dL (0.2-1.3); Total Protein 7.2 g/dL (6.3-8.2)
--- NOTE | 2024-04-01 21:56 | ED ---
URI HPI - General Source: patient, RN notes reviewed Mode of arrival: EMS - History of Present Illness MD Complaint: cough <Teo Mcgraw - Last Filed: 04/01/24 22:16> <Catalina Veras - Last Filed: 04/02/24 01:47> - General Chief Complaint: Upper Respiratory Infection Stated Complaint: High Blood Sugar Time Seen by Provider: 04/01/24 20:26 - History of Present Illness Initial Comments: This is a 53-year-old female with history of DM complaining of productive cough and headache x 3 days. Patient endorses phlegm with cough with no associated fever or fatigue. Endorses use of Tylenol with minimal relief. Patient states she ran out of her insulin and has uncontrolled blood sugar and according to EMS at 575 mg/dL. Patient denies chills, dizziness, AMS, ALOC, chest pain, dyspnea, abdominal pain, N/V/D. (Teo Mcgraw) - Related Data Home Medications Medication Instructions Recorded Confirmed Atorvastatin [Lipitor] 80 mg PO HS 06/25/19 02/17/24 lisinopriL 40 mg PO DAILY 09/24/20 02/17/24 traZODone HCL 50 mg PO HS 01/11/21 02/17/24 INSULIN ASPART (NovoLOG) [NovoLOG 20 unit SQ AC-TID 11/26/22 02/17/24 (formulary)] Albuterol Inhaler [Ventolin Hfa 2 puff INHALATION RT-QID PRN 03/01/23 02/17/24 Inhaler] Insulin Glargine,Hum.rec.anlog 30 units SQ DAILY 07/30/23 02/17/24 [Lantus Solostar Pen] Dulaglutide [Trulicity] 1.5 mg SQ DIRECTED 02/17/24 02/17/24 Ezetimibe [Zetia] 10 mg PO HS 02/17/24 02/17/24 Insulin Aspart (Niacinamide) 8 units SQ DIRECTED 02/17/24 02/17/24 [Fiasp 100 Unit/ml Flextouch Pen] Nystatin 100,000 Unit/gm Powd 1 applic TOPICAL BID PRN 02/17/24 02/17/24 [Mycostatin Powder] Pantoprazole [Protonix] 40 mg PO DAILY 02/17/24 02/17/24 metFORMIN HCL [Glucophage] 500 mg PO BID 02/17/24 02/17/24 Previous Rx's Medication Instructions Recorded amLODIPine [Norvasc] 10 mg PO DAILY #30 tab 03/11/23 hydrALAZINE HCL [Apresoline] 25 mg PO BID #60 tab 03/11/23 Mupirocin 2% Oint [Bactroban 2% 1 applic TOPICAL TID #22 gm 02/17/24 Oint] Ondansetron Odt [Zofran Odt] 4 mg PO Q8HR PRN #10 tab 02/17/24 Sulfamethox-Tmp 800-160Mg [Bactrim 2 tab PO Q12HR #28 tab 02/17/24 DS 800-160 mg] Dicyclomine [Bentyl] 20 mg PO QID #15 tablet 03/15/24 Ondansetron Odt [Zofran Odt] 4 mg PO Q8HR PRN #10 tab 03/29/24 Allergies Allergy/AdvReac Type Severity Reaction Status Date / Time levofloxacin [From Levaquin] Allergy Rash/Hives Verified 04/01/24 20:17 Review of Systems ROS Other: All systems not noted in ROS Statement are negative. <Teo Mcgraw - Last Filed: 04/01/24 22:16> ROS Other: All systems not noted in ROS Statement are negative. <Catalina Veras - Last Filed: 04/02/24 01:47> ROS Statement: Those systems with pertinent positive or pertinent negative responses have been documented in the HPI. Past Medical History Past Medical History: Diabetes Mellitus, GERD/Reflux, Hyperlipidemia, Hypertension, Syncope Additional Past Medical History / Comment(s): Pt recently admitted to [facility] on 07/21/21 with uncontrolled IDDM and hyperkalemia. Other hx: Recurrent pancreatitis, hypertriglyceridemia, elevated lipase, IDDM type II, UTI, chronic low back pain, bulging discs, dental abscesses in past. History of Any Multi-Drug Resistant Organisms: MRSA Date of last positivie culture/infection: 03/01/23 MDRO Source:: Abdomen Past Surgical History: Tubal Ligation Additional Past Surgical History / Comment(s): Age 7 had VSD repair, tumor removal 03/2023 Past Anesthesia/Blood Transfusion Reactions: No Reported Reaction Past Psychological History: No Psychological Hx Reported Smoking Status: Former smoker, Second hand smoke exposure, Vaper Past Alcohol Use History: None Reported Past Drug Use History: None Reported - Past Family History Mother Family Medical History: No Reported History Additional Family Medical History / Comment(s): Mother was healthy. She is , pt cannot recall cause of . Father Family Medical History: Pneumonia Additional Family Medical History / Comment(s): Father at the age of 67yrs from pneumonia <Teo Mcgraw - Last Filed: 04/01/24 22:16> General Exam General appearance: alert, in no apparent distress Head exam: Present: atraumatic, normocephalic, normal inspection Eye exam: Present: normal appearance, PERRL, EOMI. Absent: scleral icterus, conjunctival injection, periorbital swelling ENT exam: Present: normal exam, mucous membranes moist Neck exam: Present: normal inspection. Absent: tenderness, meningismus, lymphadenopathy Respiratory exam: Present: normal lung sounds bilaterally. Absent: respiratory distress, wheezes, rales, rhonchi, stridor Cardiovascular Exam: Present: regular rate, normal rhythm, normal heart sounds. Absent: systolic murmur, diastolic murmur, rubs, gallop, clicks GI/Abdominal exam: Present: soft, normal bowel sounds. Absent: distended, tenderness, guarding, rebound, rigid Extremities exam: Present: normal inspection, full ROM, normal capillary refill. Absent: tenderness, pedal edema, joint swelling, calf tenderness Back exam: Present: normal inspection Neurological exam: Present: alert, oriented X3, CN II-XII intact Psychiatric exam: Present: normal affect, normal mood Skin exam: Present: warm, dry, intact, normal color. Absent: rash <MariluzNormanTeo - Victorino Filed: 04/01/24 22:16> Course Vital Signs 04/01/24 04/01/24 04/01/24 20:13 22:00 23:00 Temperature 99.0 F Pulse Rate 77 73 71 Respiratory 18 18 18 Rate Blood Pressure 143/75 138/77 127/63 O2 Sat by Pulse 95 96 96 Oximetry 04/02/24 00:42 Temperature 98.8 F Pulse Rate 71 Respiratory 18 Rate Blood Pressure 148/76 O2 Sat by Pulse 98 Oximetry Medical Decision Making - Lab Data Result diagrams: 04/01/24 20:21 04/01/24 20:21 <Teo Mcgraw - Last Filed: 04/01/24 22:16> - Lab Data Result diagrams: 04/01/24 20:21 04/01/24 20:21 - Radiology Data Radiology results: report reviewed, image reviewed <Catalina Veras - Last Filed: 04/02/24 01:47> - Medical Decision Making Was pt. sent in by a medical professional or institution (ROSALIE Flaherty, SURVEY CAD TECHNICIAN, urgent care, hospital, or penitentiary...) When possible be specific @ -[No] Did you speak to anyone other than the patient for history (EMS, parent, family, police, friend...)? What history was obtained from this source @ -[No] Did you review nursing and triage notes (agree or disagree)? Why? @ -[I reviewed and agree with nursing and triage notes] Were old charts reviewed (outside hosp., previous admission, EMS record, old EKG, old radiological studies, urgent care reports/EKG's, penitentiary records)? Report findings @ -[No old charts were reviewed] Differential Diagnosis (chest pain, altered mental status, abdominal pain women, abdominal pain men, vaginal bleeding, weakness, fever, dyspnea, syncope, headache, dizziness, GI bleed, back pain, seizure, CVA, palpatations, mental health, musculoskeletal)? @ -Bronchitis, pneumonia, tension headache, migraine, hyperglycemia, DKA, this is not an exhaustive list EKG interpreted by me (3pts min.). @ -Not done X-rays interpreted by me (1pt min.). @ -CXR shows no acute cardiopulmonary process CT interpreted by me (1pt min.). @ -[None done] U/S interpreted by me (1pt. min.). @ -[None done] What testing was considered but not performed or refused? (CT, X-rays, U/S, labs)? Why? @ -[None] What meds were considered but not given or refused? Why? @ -[None] Did you discuss the management of the patient with other professionals (professionals i.e. ROSALIE Flaherty, SURVEY CAD TECHNICIAN, lab, RT, psych nurse, health social work professor, mobile designer, teacher, personnel officer, immigration case worker)? Give summary @ -[No] Was smoking cessation discussed for >3mins.? @ -[No] Was critical care preformed (if so, how long)? @ -[No] Were there social determinants of health that impacted care today? How? (Homelessness, low income, unemployed, alcoholism, drug addiction, tr ansportation, low edu. Level, literacy, decrease access to med. care, longterm, rehab)? @ -[No] Was there de-escalation of care discussed even if they declined (Discuss DNR or withdrawal of care, Hospice)? DNR status @ -[No] What co-morbidities impacted this encounter? (DM, HTN, Smoking, COPD, CAD, Canc er, CVA, ARF, Chemo, Hep., AIDS, mental health diagnosis, sleep apnea, morbid obesity)? @ -DM Was patient admitted / discharged? Hospital course, mention meds given and route, prescriptions, significant lab abnormalities, going to OR and other pertinent info. @ -CXR unremarkable. Acetone and Cepheid test negative. Mild like leukocytosis of 12.0. Slightly elevated BUN and creatinine. Glucose originally in 500s. Patient given normal saline, Toradol and sliding scale NovoLog. Undiagnosed new problem with uncertain prognosis? @ -[No] Drug Therapy requiring intensive monitoring for toxicity (Heparin, Nitro, Insulin, Cardizem)? @ -[No] Were any procedures done? @ -[No] Diagnosis/symptom? @ -Hyperglycemia Acute, or Chronic, or Acute on Chronic? @ -Acute Uncomplicated (without systemic symptoms) or Complicated (systemic symptoms)? @ -Complicated Side effects of treatment? @ -[No] Exacerbation, Progression, or Severe Exacerbation? @ -[No] Poses a threat to life or bodily function? How? (Chest pain, USA, ND, pneumonia, PE, COPD, DKA, ARF, appy, cholecystitis, CVA, Diverticulitis, Homicidal, Suicidal, threat to staff... and all critical care pts) @ -[No] (Teo Mcgraw) Case signed out to me by Teo Mcgraw PA-C, at shift completion pending glucose and disposition. Blood sugar rechecked after IV fluids and insulin and found to be 402. On review of prior visits, patient's blood sugar is typically in the 400s. Patient educated on the need to be compliant with her insulin and she was discharged home in stable condition. Case discussed with ED attending Dr. Huynh. Return precautions reviewed in depth, the patient is instructed to return to the emergency department with any new, worsening, or concerning symptoms. Patient verbalized understanding. (Catalina Veras) - Lab Data Lab Results 04/01/24 04/01/24 04/01/24 Range/Units 20:21 20:21 20:24 WBC 12.0 H (3.8-10.6) k/uL RBC 4.73 (3.80-5.40) m/uL Hgb 12.9 (11.4-16.0) gm/dL Hct 39.7 (34.0-46.0) % MCV 83.9 (80.0-100.0) fL MCH 27.2 (25.0-35.0) pg MCHC 32.4 (31.0-37.0) g/dL RDW 16.2 H (11.5-15.5) % Plt Count 565 H (150-450) k/uL MPV 8.0 Neutrophils % 60 % Lymphocytes % 31 % Monocytes % 5 % Eosinophils % 2 % Basophils % 1 % Neutrophils # 7.2 (1.3-7.7) k/uL Lymphocytes # 3.7 (1.0-4.8) k/uL Monocytes # 0.6 (0-1.0) k/uL Eosinophils # 0.3 (0-0.7) k/uL Basophils # 0.1 (0-0.2) k/uL Anisocytosis Slight Sodium 130 L (137-145) mmol/L Potassium 4.8 (3.5-5.1) mmol/L Chloride 100 (98-107) mmol/L Carbon Dioxide 19 L (22-30) mmol/L Anion Gap 11 mmol/L BUN 24 H (7-17) mg/dL Creatinine 1.05 H (0.52-1.04) mg/dL Est GFR (CKD-EPI)AfAm 71 (>60 ml/min/1.73 sqM) Est GFR (CKD-EPI)NonAf 62 (>60 ml/min/1.73 sqM) Glucose 527 H* (74-99) mg/dL POC Glucose (mg/dL) 541 H* (70-110) mg/dL POC Glu Electronic Publisher ID Carlos Eduardo Lopez Calcium 9.2 (8.4-10.2) mg/dL Total Bilirubin 0.4 (0.2-1.3) mg/dL AST 31 (14-36) U/L ALT 24 (4-34) U/L Alkaline Phosphatase 148 H (38-126) U/L Total Protein 7.2 (6.3-8.2) g/dL Albumin 4.0 (3.5-5.0) g/dL Acetone, Qual Negative (Negative) Influenza Type A (PCR) (Not Detectd) Influenza Type B (PCR) (Not Detectd) RSV (PCR) (Not Detectd) SARS-CoV-2 (PCR) (Not Detectd) 04/01/24 04/01/24 04/01/24 Range/Units 21:18 21:59 23:09 WBC (3.8-10.6) k/uL RBC (3.80-5.40) m/uL Hgb (11.4-16.0) gm/dL Hct (34.0-46.0) % MCV (80.0-100.0) fL MCH (25.0-35.0) pg MCHC (31.0-37.0) g/dL RDW (11.5-15.5) % Plt Count (150-450) k/uL MPV Neutrophils % % Lymphocytes % % Monocytes % % Eosinophils % % Basophils % % Neutrophils # (1.3-7.7) k/uL Lymphocytes # (1.0-4.8) k/uL Monocytes # (0-1.0) k/uL Eosinophils # (0-0.7) k/uL Basophils # (0-0.2) k/uL Anisocytosis Sodium (137-145) mmol/L Potassium (3.5-5.1) mmol/L Chloride (98-107) mmol/L Carbon Dioxide (22-30) mmol/L Anion Gap mmol/L BUN (7-17) mg/dL Creatinine (0.52-1.04) mg/dL Est GFR (CKD-EPI)AfAm (>60 ml/min/1.73 sqM) Est GFR (CKD-EPI)NonAf (>60 ml/min/1.73 sqM) Glucose (74-99) mg/dL POC Glucose (mg/dL) 448 H 419 H (70-110) mg/dL POC Glu Electronic Publisher ID Meliton Lisa Meliton Lisa Calcium (8.4-10.2) mg/dL Total Bilirubin (0.2-1.3) mg/dL AST (14-36) U/L ALT (4-34) U/L Alkaline Phosphatase (38-126) U/L Total Protein (6.3-8.2) g/dL Albumin (3.5-5.0) g/dL Acetone, Qual (Negative) Influenza Type A (PCR) Not Detected (Not Detectd) Influenza Type B (PCR) Not Detected (Not Detectd) RSV (PCR) Not Detected (Not Detectd) SARS-CoV-2 (PCR) Not Detected (Not Detectd) 04/02/24 Range/Units 00:01 WBC (3.8-10.6) k/uL RBC (3.80-5.40) m/uL Hgb (11.4-16.0) gm/dL Hct (34.0-46.0) % MCV (80.0-100.0) fL MCH (25.0-35.0) pg MCHC (31.0-37.0) g/dL RDW (11.5-15.5) % Plt Count (150-450) k/uL MPV Neutrophils % % Lymphocytes % % Monocytes % % Eosinophils % % Basophils % % Neutrophils # (1.3-7.7) k/uL Lymphocytes # (1.0-4.8) k/uL Monocytes # (0-1.0) k/uL Eosinophils # (0-0.7) k/uL Basophils # (0-0.2) k/uL Anisocytosis Sodium (137-145) mmol/L Potassium (3.5-5.1) mmol/L Chloride (98-107) mmol/L Carbon Dioxide (22-30) mmol/L Anion Gap mmol/L BUN (7-17) mg/dL Creatinine (0.52-1.04) mg/dL Est GFR (CKD-EPI)AfAm (>60 ml/min/1.73 sqM) Est GFR (CKD-EPI)NonAf (>60 ml/min/1.73 sqM) Glucose (74-99) mg/dL POC Glucose (mg/dL) 402 H (70-110) mg/dL POC Glu Electronic Publisher ID Carlos Eduardo Lopez Calcium (8.4-10.2) mg/dL Total Bilirubin (0.2-1.3) mg/dL AST (14-36) U/L ALT (4-34) U/L Alkaline Phosphatase (38-126) U/L Total Protein (6.3-8.2) g/dL Albumin (3.5-5.0) g/dL Acetone, Qual (Negative) Influenza Type A (PCR) (Not Detectd) Influenza Type B (PCR) (Not Detectd) RSV (PCR) (Not Detectd) SARS-CoV-2 (PCR) (Not Detectd) Disposition Is patient prescribed a controlled substance at d/c from ED?: No <Teo Mcgraw - Last Filed: 04/01/24 22:16> Is patient prescribed a controlled substance at d/c from ED?: No Time of Disposition: 00:07 <Catalina Veras - Last Filed: 04/02/24 01:47> Clinical Impression: Bronchitis, Hyperglycemia Disposition: HOME SELF-CARE Condition: Good Instructions (If sedation given, give patient instructions): Acute Bronchitis (ED), Diabetic Hyperglycemia (ED) Referrals: [facility] [Primary Care Provider] - 1-2 days
[2024-04-01 22:01] LABS: Glucose 527 mg/dL (74-99)
[2024-04-01] MEDS: INSULN ASP PRT/INSULIN ASPART 100 UNIT/ML 10 ML VIAL SQ ONE (22:01)
[2024-04-01] MEDS: KETOROLAC 15 MG/ML 1 ML VIAL IVP STA (22:01)
[2024-04-01] MEDS: SODIUM CHLORIDE 0.9% 1,000 ML IV STA ×2 (22:03→23:17)
[2024-04-01 22:06] LABS: Glucose,Whole Blood 448 mg/dL (70-110)
[2024-04-01 23:11] LABS: Glucose,Whole Blood 419 mg/dL (70-110)
[2024-04-01 23:53] VITALS: PULSE 71
[2024-04-02 00:02] LABS: Glucose,Whole Blood 402 mg/dL (70-110)
[2024-04-02] MEDS: ACETAMINOPHEN TAB 500 MG TAB PO STA (00:10)
[2024-04-02 00:43] VITALS: BP 148/76; TEMP 98.8
== END 2024-04-02 00:44 | disposition home or self-care (01) ==
LOC: EC 20:11
DX: E11.65 Type 2 diabetes mellitus with hyperglycemia (principal); J40 Bronchitis, not specified as acute or chronic; F17.290 Nicotine dependence, other tobacco product, uncomplicated; Z79.4 Long term (current) use of insulin; Z79.84 Long term (current) use of oral hypoglycemic drugs; Z88.1 Allergy status to other antibiotic agents
CPT/HCPCS: 36415 ×2; 80053; 82009; 85025; 87636; 71046; 99284; 96374; J1885

== ENCOUNTER 2024-04-03 19:07 | Emergency (ER) | payer MEDICARE ==
[2024-04-03 19:15] VITALS: TEMP 98.7
--- NOTE | 2024-04-03 20:28 | ED ---
Headache HPI - General Source: patient, RN notes reviewed Mode of arrival: EMS Limitations: no limitations - History of Present Illness MD Complaint: headache Onset/Timin -: hour(s) <Teo Mcgraw - Last Filed: 04/03/24 20:26> <Anastasiia Ramirez - Last Filed: 04/04/24 20:41> - General Chief Complaint: Headache Stated Complaint: Headache Time Seen by Provider: 04/03/24 19:20 - History of Present Illness Initial Comments: Quick note: This is a frequently seen 53-year-old female with history of DM presenting via EMS with left-sided headache x 2 hours. Patient states pain radiates down her left neck with associated nausea/vomiting. Denies [id number] medication use. (Teo Mcgraw) 53-year-old female history of diabetes presenting with chief complaint of headache. Patient is complaining of a left-sided headache with some radiation into her neck. Has been ongoing for the last 2 hours. She has had some nausea with no vomiting. She has not tried anything at home to help the pain. No vision or hearing changes. No numbness tingling or weakness. No cough congestion or sore throat. No fevers or chills. (Anastasiia Ramirez) - Related Data Home Medications Medication Instructions Recorded Confirmed Atorvastatin [Lipitor] 80 mg PO HS 06/25/19 02/17/24 lisinopriL 40 mg PO DAILY 09/24/20 02/17/24 traZODone HCL 50 mg PO HS 01/11/21 02/17/24 INSULIN ASPART (NovoLOG) [NovoLOG 20 unit SQ AC-TID 11/26/22 02/17/24 (formulary)] Albuterol Inhaler [Ventolin Hfa 2 puff INHALATION RT-QID PRN 03/01/23 02/17/24 Inhaler] Insulin Glargine,Hum.rec.anlog 30 units SQ DAILY 07/30/23 02/17/24 [Lantus Solostar Pen] Dulaglutide [Trulicity] 1.5 mg SQ DIRECTED 02/17/24 02/17/24 Ezetimibe [Zetia] 10 mg PO HS 02/17/24 02/17/24 Insulin Aspart (Niacinamide) 8 units SQ DIRECTED 02/17/24 02/17/24 [Fiasp 100 Unit/ml Flextouch Pen] Nystatin 100,000 Unit/gm Powd 1 applic TOPICAL BID PRN 02/17/24 02/17/24 [Mycostatin Powder] Pantoprazole [Protonix] 40 mg PO DAILY 02/17/24 02/17/24 metFORMIN HCL [Glucophage] 500 mg PO BID 02/17/24 02/17/24 Previous Rx's Medication Instructions Recorded amLODIPine [Norvasc] 10 mg PO DAILY #30 tab 03/11/23 hydrALAZINE HCL [Apresoline] 25 mg PO BID #60 tab 03/11/23 Mupirocin 2% Oint [Bactroban 2% 1 applic TOPICAL TID #22 gm 02/17/24 Oint] Ondansetron Odt [Zofran Odt] 4 mg PO Q8HR PRN #10 tab 02/17/24 Sulfamethox-Tmp 800-160Mg [Bactrim 2 tab PO Q12HR #28 tab 02/17/24 DS 800-160 mg] Dicyclomine [Bentyl] 20 mg PO QID #15 tablet 03/15/24 Ondansetron Odt [Zofran Odt] 4 mg PO Q8HR PRN #10 tab 03/29/24 Allergies Allergy/AdvReac Type Severity Reaction Status Date / Time levofloxacin [From Levaquin] Allergy Rash/Hives Verified 04/03/24 19:15 Review of Systems ROS Other: All systems not noted in ROS Statement are negative. <Teo Mcgraw - Last Filed: 04/03/24 20:26> ROS Other: All systems not noted in ROS Statement are negative. <Anastasiia Ramirez - Last Filed: 04/04/24 20:41> ROS Statement: Those systems with pertinent positive or pertinent negative responses have been documented in the HPI. Past Medical History Past Medical History: Diabetes Mellitus, GERD/Reflux, Hyperlipidemia, Hyperte nsion, Syncope Additional Past Medical History / Comment(s): Pt recently admitted to [facility] on 07/21/21 with uncontrolled IDDM and hyperkalemia. Other hx: Recurrent pancreatitis, hypertriglyceridemia, elevated lipase, IDDM type II, UTI, chronic low back pain, bulging discs, dental abscesses in past. History of Any Multi-Drug Resistant Organisms: MRSA Date of last positivie culture/infection: 03/01/23 MDRO Source:: Abdomen Past Surgical History: Tubal Ligation Additional Past Surgical History / Comment(s): Age 7 had VSD repair, tumor removal 03/2023 Past Anesthesia/Blood Transfusion Reactions: No Reported Reaction Past Psychological History: No Psychological Hx Reported Smoking Status: Former smoker, Second hand smoke exposure, Vaper Past Alcohol Use History: None Reported Past Drug Use History: None Reported - Past Family History Mother Family Medical History: No Reported History Additional Family Medical History / Comment(s): Mother was healthy. She is , pt cannot recall cause of . Father Family Medical History: Pneumonia Additional Family Medical History / Comment(s): Father at the age of 67yrs from pneumonia <Teo Mcgraw - Last Filed: 04/03/24 20:26> General Exam Limitations: no limitations <Teo Mcgraw - Last Filed: 04/03/24 20:26> General appearance: alert, in no apparent distress Head exam: Present: atraumatic, normocephalic, normal inspection Eye exam: Present: normal appearance, EOMI Pupils: Present: normal accommodation Neck exam: Present: normal inspection. Absent: meningismus Respiratory exam: Absent: respiratory distress Cardiovascular Exam: Present: regular rate Neurological exam: Present: alert, oriented X3 Expanded Eye Response: (4) open spontaneously Motor Response: (6) obeys commands Verbal Response: (5) oriented Dany Total: 15 Psychiatric exam: Present: normal affect, normal mood Skin exam: Present: warm, dry, normal color <Anastasiia Ramirez - Last Filed: 04/04/24 20:41> - General Exam Comments Initial Comments: Visual Physical Exam Vital signs reviewed General: Well-appearing, nontoxic, no acute distress. Head: Normocephalic, atraumatic Eyes: PERRLA, EOMI ENT: Airway patent Chest: Nonlabored breathing Skin: No visual rash, normal skin tone Neuro: Alert and oriented 3 Musculoskeletal: No gross abnormalities (Teo Mcgraw) Course Vital Signs 04/03/24 04/04/24 19:13 01:28 Temperature 98.7 F Pulse Rate 79 76 Respiratory 18 16 Rate Blood Pressure 129/65 120/84 O2 Sat by Pulse 97 98 Oximetry Medical Decision Making <Teo Mcgraw - Last Filed: 04/03/24 20:26> - Lab Data Result diagrams: 04/03/24 22:24 04/03/24 22:24 <Anastasiia Ramirez - Last Filed: 04/04/24 20:41> - Medical Decision Making I completed the quick note portion of this chart signed DOTTY Peraza (Teo Mcgraw) Was pt. sent in by a medical professional or institution ([facility], [facility], urgent care, hospital, or [facility]...) When possible be specific @ -No Did you speak to anyone other than the patient for history (EMS, parent, family, police, friend...)? What history was obtained from this source @ -No Did you review nursing and triage notes (agree or disagree)? Why? @ -I reviewed and agree with nursing and triage notes Were old charts reviewed (outside hosp., previous admission, EMS record, old EKG, old radiological studies, urgent care reports/EKG's, [facility] records)? Report findings @ -No old charts were reviewed Differential Diagnosis (chest pain, altered mental status, abdominal pain women, abdominal pain men, vaginal bleeding, weakness, fever, dyspnea, syncope, headache, dizziness, GI bleed, back pain, seizure, CVA, palpatations, mental health, musculoskeletal)? @ -MDM Differential Headache: Migraine, tension, cluster, carbon monoxide, central venous thrombosis, pension karma temporal arteritis, acute closure glaucoma, intercranial hemorrhage, mastoiditis, sinusitis, head injury this is not meant to be an all-inclusive list. EKG interpreted by me (3pts min.). @ -As above X-rays interpreted by me (1pt min.). @ -None done CT interpreted by me (1pt min.). @ -None done U/S interpreted by me (1pt. min.). @ -None done What testing was considered but not performed or refused? (CT, X-rays, U/S, labs)? Why? @ -None What meds were considered but not given or refused? Why? @ -None Did you discuss the management of the patient with other professionals (professionals i.e. [facility], [facility], lab, RT, psych nurse, high school social studies teacher, silhouette artist, teacher, training officer, case management assistant)? Give summary @ -No Was smoking cessation discussed for >3mins.? @ -No Was critical care preformed (if so, how long)? @ -No Were there social determinants of health that impacted care today? How? (Homelessness, low income, unemployed, alcoholism, drug addiction, transportation, low edu. Level, literacy, decrease access to med. care, half-way, rehab)? @ -No Was there de-escalation of care discussed even if they declined (Discuss DNR or withdrawal of care, Hospice)? DNR status @ -No What co-morbidities impacted this encounter? (DM, HTN, Smoking, COPD, CAD, Cancer, CVA, ARF, Chemo, Hep., AIDS, mental health diagnosis, sleep apnea, morbid obesity)? @ -None Was patient admitted / discharged? Hospital course, mention meds given and route, prescriptions, significant lab abnormalities, going to OR and other pertinent info. @ -53-year-old female presenting with chief complaint of headache. History of diabetes. Glucose is 395. Labs are then obtained. No ketonuria. Normal anion gap. Patient is not in DKA. She is given pain medication for her headache and insulin, on reassessment her glucose is improved to 290. Follow-up with PCP. Report back to ER with any new or worsening symptoms. Discussed return parameters and answered all questions. Patient conveyed verbal understanding and agreed to the plan. I discussed this case in detail with my attending Dr. Huynh Undiagnosed new problem with uncertain prognosis? @ -No Drug Therapy requiring intensive monitoring for toxicity (Heparin, Nitro, Insulin, Cardizem)? @ -No Were any procedures done? @ -No Diagnosis/symptom? @ -Headache, hyperglycemia Acute, or Chronic, or Acute on Chronic? @ -Acute Uncomplicated (without systemic symptoms) or Complicated (systemic symptoms)? @ -Uncomplicated Side effects of treatment? @ -No Exacerbation, Progression, or Severe Exacerbation? @ -No Poses a threat to life or bodily function? How? (Chest pain, [place], [place], pneumonia, PE, COPD, DKA, ARF, appy, cholecystitis, CVA, Diverticulitis, Homicidal, Suicidal, threat to staff... and all critical care pts) @ -Low likelihood (Anastasiia Ramirez) - Lab Data Lab Results 12/27/24 12/27/24 12/27/24 Range/Units 21:47 22:24 22:24 WBC 12.9 H (3.8-10.6) k/uL RBC 4.88 (3.80-5.40) m/uL Hgb 13.5 (11.4-16.0) gm/dL Hct 40.6 (34.0-46.0) % MCV 83.1 (80.0-100.0) fL MCH 27.7 (25.0-35.0) pg MCHC 33.4 (31.0-37.0) g/dL RDW 16.3 H (11.5-15.5) % Plt Count 522 H (150-450) k/uL MPV 6.5 Neutrophils % 62 % Lymphocytes % 30 % Monocytes % 4 % Eosinophils % 2 % Basophils % 1 % Neutrophils # 8.1 H (1.3-7.7) k/uL Lymphocytes # 3.8 (1.0-4.8) k/uL Monocytes # 0.5 (0-1.0) k/uL Eosinophils # 0.3 (0-0.7) k/uL Basophils # 0.1 (0-0.2) k/uL Anisocytosis Slight Microcytosis Slight Sodium (137-145) mmol/L Potassium (3.5-5.1) mmol/L Chloride (98-107) mmol/L Carbon Dioxide (22-30) mmol/L Anion Gap mmol/L BUN (7-17) mg/dL Creatinine (0.52-1.04) mg/dL Est GFR (CKD-EPI)AfAm (>60 ml/min/1.73 sqM) Est GFR (CKD-EPI)NonAf (>60 ml/min/1.73 sqM) Glucose (74-99) mg/dL POC Glucose (mg/dL) 395 H (70-110) mg/dL POC Glu [employer] ID Calcium (8.4-10.2) mg/dL Total Bilirubin (0.2-1.3) mg/dL AST (14-36) U/L ALT (4-34) U/L Alkaline Phosphatase (38-126) U/L Total Protein (6.3-8.2) g/dL Albumin (3.5-5.0) g/dL Urine Color Light Yellow Urine Appearance Cloudy H (Clear) Urine pH 5.5 (5.0-8.0) Ur Specific [place] 1.029 (1.001-1.035) Urine Protein 3+ H (Negative) Urine Glucose (UA) 4+ H (Negative) Urine Ketones Negative (Negative) Urine Blood Negative (Negative) Urine Nitrite Negative (Negative) Urine Bilirubin Negative (Negative) Urine Urobilinogen <2.0 (<2.0) mg/dL Ur Leukocyte Esterase Negative (Negative) Urine RBC 4 (0-5) /hpf Urine WBC 3 (0-5) /hpf Ur Squamous Epith Cells 8 H (0-4) /hpf Hyaline Casts 4 H (0-2) /lpf Urine Mucus Rare H (None) /hpf Urine Yeast (Budding) Rare H (None) /hpf 04/03/24 04/04/24 Range/Units 22:24 01:16 WBC (3.8-10.6) k/uL RBC (3.80-5.40) m/uL Hgb (11.4-16.0) gm/dL Hct (34.0-46.0) % MCV (80.0-100.0) fL MCH (25.0-35.0) pg MCHC (31.0-37.0) g/dL RDW (11.5-15.5) % Plt Count (150-450) k/uL MPV Neutrophils % % Lymphocytes % % Monocytes % % Eosinophils % % Basophils % % Neutrophils # (1.3-7.7) k/uL Lymphocytes # (1.0-4.8) k/uL Monocytes # (0-1.0) k/uL Eosinophils # (0-0.7) k/uL Basophils # (0-0.2) k/uL Anisocytosis Microcytosis Sodium 130 L (137-145) mmol/L Potassium 4.4 (3.5-5.1) mmol/L Chloride 100 (98-107) mmol/L Carbon Dioxide 17 L (22-30) mmol/L Anion Gap 13 mmol/L BUN 16 (7-17) mg/dL Creatinine 0.79 (0.52-1.04) mg/dL Est GFR (CKD-EPI)AfAm >90 (>60 ml/min/1.73 sqM) Est GFR (CKD-EPI)NonAf 88 (>60 ml/min/1.73 sqM) Glucose 435 H (74-99) mg/dL POC Glucose (mg/dL) 290 H (70-110) mg/dL POC Glu Meat Seafood Associate ID Calcium 9.5 (8.4-10.2) mg/dL Total Bilirubin 0.4 (0.2-1.3) mg/dL AST 29 (14-36) U/L ALT 31 (4-34) U/L Alkaline Phosphatase 160 H (38-126) U/L Total Protein 7.4 (6.3-8.2) g/dL Albumin 4.2 (3.5-5.0) g/dL Urine Color Urine Appearance (Clear) Urine pH (5.0-8.0) Ur Specific [place] (1.001-1.035) Urine Protein (Negative) Urine Glucose (UA) (Negative) Urine Ketones (Negative) Urine Blood (Negative) Urine Nitrite (Negative) Urine Bilirubin (Negative) Urine Urobilinogen (<2.0) mg/dL Ur Leukocyte Esterase (Negative) Urine RBC (0-5) /hpf Urine WBC (0-5) /hpf Ur Squamous Epith Cells (0-4) /hpf Hyaline Casts (0-2) /lpf Urine Mucus (None) /hpf Urine Yeast (Budding) (None) /hpf Disposition <Teo Mcgraw - Last Filed: 04/03/24 20:26> Is patient prescribed a controlled substance at d/c from ED?: No Time of Disposition: 01:19 <Anastasiia Ramirez - Last Filed: 04/04/24 20:41> Clinical Impression: Hyperglycemia, Headache Disposition: HOME SELF-CARE Condition: Good Instructions (If sedation given, give patient instructions): Acute Headache (ED) Additional Instructions: Follow-up with PCP. Report back to ER with any new or worsening symptoms. Referrals: [facility] [Primary Care Provider] - 1-2 days
[2024-04-03] MEDS: ACETAMINOPHEN TAB 500 MG TAB PO STA (21:48)
[2024-04-03] MEDS: ONDANSETRON ODT 4 MG TAB PO STA (21:48)
[2024-04-03 21:49] LABS: Glucose,Whole Blood 395 mg/dL (70-110)
[2024-04-03] MEDS: SODIUM CHLORIDE 0.9% 1,000 ML IV ONE (22:48)
[2024-04-03] MEDS: INSULIN REGULAR 100 UNIT/ML VIAL (IV) IV ONE (22:54)
[2024-04-03 22:57] LABS: Anisocytosis Slight; Basophils # (A) 0.1 k/uL (0-0.2); Basophils % (A) 1 %; Eosinophils # (A) 0.3 k/uL (0-0.7); Eosinophils % (A) 2 %; HCT 40.6 % (34.0-46.0); HGB 13.5 gm/dL (11.4-16.0); Lymphocytes # (A) 3.8 k/uL (1.0-4.8); Lymphocytes % (A) 30 %; MCH 27.7 pg (25.0-35.0); MCHC 33.4 g/dL (31.0-37.0); MCV 83.1 fL (80.0-100.0); Mean Platelet Volume 6.5; Microcytosis Slight; Monocytes # (A) 0.5 k/uL (0-1.0); Monocytes % (A) 4 %; Neutrophils # (A) 8.1 k/uL (1.3-7.7); Neutrophils % (A) 62 %; Platelet Count 522 k/uL (150-450); RBC 4.88 m/uL (3.80-5.40); RDW 16.3 % (11.5-15.5); WBC 12.9 k/uL (3.8-10.6)
[2024-04-03 23:09] LABS: AST 29 U/L (14-36); African American GFR (CKD) >90 (>60 ml/min/1.73 sqM); Albumin 4.2 g/dL (3.5-5.0); Alkaline Phosphatase 160 U/L (38-126); Anion Gap 13 mmol/L; Blood Urea Nitrogen 16 mg/dL (7-17); Calcium 9.5 mg/dL (8.4-10.2); Carbon Dioxide 17 mmol/L (22-30); Chloride 100 mmol/L (98-107); Glucose 435 mg/dL (74-99); Non-African American GFR(CKD) 88 (>60 ml/min/1.73 sqM); Potassium 4.4 mmol/L (3.5-5.1); Sodium 130 mmol/L (137-145); Total Bilirubin 0.4 mg/dL (0.2-1.3); Total Protein 7.4 g/dL (6.3-8.2)
[2024-04-03 23:13] LABS: Appearance,Urine Cloudy (Clear); Bilirubin,Urine Negative (Negative); Blood,Urine Negative (Negative); Budding Yeast,Urine Rare /hpf; Color,Urine Light Yellow; Glucose,Urine (UA) 4+ (Negative); Hyaline Casts,Urine 4 /lpf (0-2); Ketones,Urine Negative (Negative); Leukocyte Esterase,Urine Negative (Negative); Mucus,Urine Rare /hpf; Nitrite,Urine Negative (Negative); PH, Urine 5.5 (5.0-8.0); Protein,Urine 3+ (Negative); RBC,Urine 4 /hpf (0-5); Specific Gravity,Urine 1.029 (1.001-1.035); Squamous Epithelial Cell,Urine 8 /hpf (0-4); Urobilinogen,Urine <2.0 mg/dL (<2.0); WBC,Urine 3 /hpf (0-5)
[2024-04-03 23:16] LABS: ALT 31 U/L (4-34)
[2024-04-04] MEDS: INSULIN REGULAR 100 UNIT/ML VIAL (IM/SQ) SQ ONE (00:15)
[2024-04-04] MEDS: IBUPROFEN 600 MG TAB PO STA (00:22)
[2024-04-04 01:18] LABS: Glucose,Whole Blood 290 mg/dL (70-110)
[2024-04-04 01:31] VITALS: BP 120/84; PULSE 76; RESP 16
== END 2024-04-04 01:28 | disposition home or self-care (01) ==
LOC: EC 19:07
DX: E11.65 Type 2 diabetes mellitus with hyperglycemia (principal); R51.9 Headache, unspecified; F17.290 Nicotine dependence, other tobacco product, uncomplicated; Z88.1 Allergy status to other antibiotic agents; Z79.84 Long term (current) use of oral hypoglycemic drugs; Z79.4 Long term (current) use of insulin
CPT/HCPCS: 36415; 80053; 81001; 85025; 96360; 99285

== ENCOUNTER 2024-04-05 20:35 | Emergency (ER) | payer MEDICARE ==
--- NOTE | 2024-04-05 20:53 | ED ---
URI HPI - General Source: patient, RN notes reviewed Mode of arrival: wheelchair Limitations: no limitations - History of Present Illness MD Complaint: cough Onset/Timin -: days(s) <MariluzTeo - Last Filed: 04/05/24 20:51> - General Source: patient, RN notes reviewed Mode of arrival: wheelchair Limitations: no limitations - History of Present Illness MD Complaint: cough -: days(s) Severity: mild Severity scale (1-10): 1 Quality: sharp Consistency: intermittent Improves With: nothing Worsens With: nothing Context: sick contacts Associated Symptoms: chills, myalgias, sore throat Treatments Prior to Arrival: none <Hemanth Tobin - Last Filed: 04/13/24 21:29> - General Stated Complaint: Cough Time Seen by Provider: 04/05/24 20:50 - History of Present Illness Initial Comments: Quick note: This is a well-known 53-year-old female presenting with reproducible chest pain x 1 day. Patient states she woke this morning with chest pain that worsens with lying supine, coughing and deep inhalation. Endorses some phlegm produced with cough. Also endorses body aches and decreased appetite. (Teo Mcgraw) This is a 53 well-known female to this ER coming in for chest pain and cough for a day. No fevers increasing phlegm no other complaints (Hemanth Tobin) - Related Data Home Medications Medication Instructions Recorded Confirmed Atorvastatin [Lipitor] 80 mg PO HS 06/25/19 02/17/24 lisinopriL 40 mg PO DAILY 09/24/20 02/17/24 traZODone HCL 50 mg PO HS 01/11/21 02/17/24 INSULIN ASPART (NovoLOG) [NovoLOG 20 unit SQ AC-TID 11/26/22 02/17/24 (formulary)] Albuterol Inhaler [Ventolin Hfa 2 puff INHALATION RT-QID PRN 03/01/23 02/17/24 Inhaler] Insulin Glargine,Hum.rec.anlog 30 units SQ DAILY 07/30/23 02/17/24 [Lantus Solostar Pen] Dulaglutide [Trulicity] 1.5 mg SQ DIRECTED 02/17/24 02/17/24 Ezetimibe [Zetia] 10 mg PO HS 02/17/24 02/17/24 Insulin Aspart (Niacinamide) 8 units SQ DIRECTED 02/17/24 02/17/24 [Fiasp 100 Unit/ml Flextouch Pen] Nystatin 100,000 Unit/gm Powd 1 applic TOPICAL BID PRN 02/17/24 02/17/24 [Mycostatin Powder] Pantoprazole [Protonix] 40 mg PO DAILY 02/17/24 02/17/24 metFORMIN HCL [Glucophage] 500 mg PO BID 02/17/24 02/17/24 Previous Rx's Medication Instructions Recorded amLODIPine [Norvasc] 10 mg PO DAILY #30 tab 03/11/23 hydrALAZINE HCL [Apresoline] 25 mg PO BID #60 tab 03/11/23 Mupirocin 2% Oint [Bactroban 2% 1 applic TOPICAL TID #22 gm 02/17/24 Oint] Ondansetron Odt [Zofran Odt] 4 mg PO Q8HR PRN #10 tab 02/17/24 Sulfamethox-Tmp 800-160Mg [Bactrim 2 tab PO Q12HR #28 tab 02/17/24 DS 800-160 mg] Dicyclomine [Bentyl] 20 mg PO QID #15 tablet 03/15/24 Ondansetron Odt [Zofran Odt] 4 mg PO Q8HR PRN #10 tab 03/29/24 Benzonatate [Tessalon Perles] 100 mg PO TID PRN #9 capsule 04/06/24 Ibuprofen [Motrin] 600 mg PO Q8HR PRN 30 Days #30 tab 04/11/24 Allergies Allergy/AdvReac Type Severity Reaction Status Date / Time levofloxacin [From Levaquin] Allergy Rash/Hives Verified 04/13/24 16:14 Review of Systems ROS Other: All systems not noted in ROS Statement are negative. <Teo Mcgraw - Last Filed: 04/05/24 20:51> ROS Other: All systems not noted in ROS Statement are negative. <Hemanth Tobin - Last Filed: 04/13/24 21:29> ROS Statement: Those systems with pertinent positive or pertinent negative responses have been documented in the HPI. Past Medical History Past Medical History: Diabetes Mellitus, GERD/Reflux, Hyperlipidemia, Hypertension, Syncope Additional Past Medical History / Comment(s): Pt recently admitted to [facility] on 07/21/21 with uncontrolled IDDM and hyperkalemia. Other hx: Recurrent pancreatitis, hypertriglyceridemia, elevated lipase, IDDM type II, UTI, chronic low back pain, bulging discs, dental abscesses in past. History of Any Multi-Drug Resistant Organisms: MRSA Date of last positivie culture/infection: 03/01/23 MDRO Source:: Abdomen Past Surgical History: Tubal Ligation Additional Past Surgical History / Comment(s): Age 7 had VSD repair, tumor removal 03/2023 Past Anesthesia/Blood Transfusion Reactions: No Reported Reaction Past Psychological History: No Psychological Hx Reported Smoking Status: Former smoker, Second hand smoke exposure, Vaper Past Alcohol Use History: None Reported Past Drug Use History: None Reported - Past Family History Mother Family Medical History: No Reported History Additional Family Medical History / Comment(s): Mother was healthy. She is , pt cannot recall cause of . Father Family Medical History: Pneumonia Additional Family Medical History / Comment(s): Father at the age of 67yrs from pneumonia <Teo Mcgraw - Last Filed: 04/05/24 20:51> General Exam <Teo Mcgraw - Last Filed: 04/05/24 20:51> General appearance: alert, in no apparent distress Head exam: Present: atraumatic, normocephalic, normal inspection Eye exam: Present: normal appearance, PERRL, EOMI. Absent: scleral icterus, conjunctival injection, periorbital swelling ENT exam: Present: normal exam, mucous membranes moist Neck exam: Present: normal inspection. Absent: tenderness, meningismus, lymphadenopathy Respiratory exam: Present: normal lung sounds bilaterally. Absent: respiratory distress, wheezes, rales, rhonchi, stridor Cardiovascular Exam: Present: regular rate, normal rhythm, normal heart sounds. Absent: systolic murmur, diastolic murmur, rubs, gallop, clicks GI/Abdominal exam: Present: soft, normal bowel sounds. Absent: distended, tenderness, guarding, rebound, rigid Extremities exam: Present: normal inspection, full ROM, normal capillary refill. Absent: tenderness, pedal edema, joint swelling, calf tenderness Back exam: Present: normal inspection Neurological exam: Present: alert, oriented X3, CN II-XII intact Psychiatric exam: Present: normal affect, normal mood Skin exam: Present: warm, dry, intact, normal color. Absent: rash <Hemanth Tobin - Last Filed: 04/13/24 21:29> - General Exam Comments Initial Comments: Visual Physical Exam Vital signs reviewed General: Well-appearing, nontoxic, no acute distress. Patient seated in wheelchair Head: Normocephalic, atraumatic Eyes: PERRLA, EOMI ENT: Airway patent Chest: Nonlabored breathing Skin: No visual rash, normal skin tone Neuro: Alert and oriented 3 Musculoskeletal: No gross abnormalities (Teo Mcgraw) Course <Hemanth Tobin - Last Filed: 04/13/24 21:29> Vital Signs 04/05/24 04/05/24 04/05/24 21:43 22:14 22:25 Temperature 98.6 F Pulse Rate 78 78 Respiratory 18 18 18 Rate Blood Pressure 127/69 155/93 O2 Sat by Pulse 98 97 Oximetry - Reevaluation(s) Reevaluation #1: 04/05/24 22:05 Medical records reviewed (Hemanth Tobin) Reevaluation #2: 04/05/24 22:05 Patient symptoms unchanged (Hemanth Tobin) Reevaluation #3: 04/05/24 22:05 Patient informed of results and questions answered (Hemanth Tobin) Reevaluation #4: Was pt. sent in by a medical professional or institution (, PA, KENO WRITER/RUNNER, urgent care, hospital, or jail...) When possible be specific @ -no Did you speak to anyone other than the patient for history (EMS, parent, family, police, friend...)? What history was obtained from this source @ -no Did you review nursing and triage notes (agree or disagree)? Why? @ -agree Are old charts reviewed (outside hosp., previous admission, EMS record, old EKG, old radiological studies, urgent care reports/EKG's, jail records)? Report findings @ -yes Differential Diagnosis (chest pain, altered mental status, abdominal pain women, abdominal pain men, vaginal bleeding, weakness, fever, dyspnea, syncope, headache, dizziness, GI bleed, back pain, seizure, CVA, palpatations, mental health, musculoskeletal)? @ -prior EKG interpreted by me (3pts min.). @ -no X-rays interpreted by me (1pt min.). @ -yes negative for acute disease CT interpreted by me (1pt min.). @ -no U/S interpreted by me (1pt. min.). @ -no What testing was considered but not performed or refused? (CT, X-rays, U/S, labs)? Why? @ -none What meds were considered but not given or refused? Why? @ -none Did you discuss the management of the patient with other professionals (professionals i.e. Dr., PA, KENO WRITER/RUNNER, lab, RT, psych nurse, social worker palliative care, floor broker, teacher, credit officer, telephonic nurse case manager)? Give summary @ -no Was smoking cessation discussed for >3mins.? @ -no Was critical care preformed (if so, how long)? @ -no Were there social determinants of health that impacted care today? How? (Homelessness, low income, unemployed, alcoholism, drug addiction, transportation, low edu. Level, literacy, decrease access to med. care, assisted, rehab)? @ -none Was there de-escalation of care discussed even if they declined (Discuss DNR or withdrawal of care, Hospice)? DNR status @ -no What co-morbidities impacted this encounter? (DM, HTN, Smoking, COPD, CAD, Cancer, CVA, ARF, Chemo, Hep., AIDS, mental health diagnosis, sleep apnea, morbid obesity)? @ -none Was patient admitted / discharged? Hospital course, mention meds given and route, prescriptions, significant lab abnormalities, going to OR and other pertinent info. @ - 53 female well-known to the ER for cough and upper respiratory infection viral syndrome patient can be discharged home Discharge Undiagnosed new problem with uncertain prognosis? @ -no Drug Therapy requiring intensive monitoring for toxicity (Heparin, Nitro, Insulin, Cardizem)? @ -no Were any procedures done? @ -no Diagnosis/symptom? @ -Upper respiratory infection Acute, or Chronic, or Acute on Chronic? @ -Acute Uncomplicated (without systemic symptoms) or Complicated (systemic symptoms)? @ -Complicated Side effects of treatment? @ -no Exacerbation, Progression, or Severe Exacerbation? @ -exacerbation Poses a threat to life or bodily function? How? (Chest pain, [place], [place], pneumonia, PE, COPD, DKA, ARF, appy, cholecystitis, CVA, Diverticulitis, Homicidal, Suicidal, threat to staff... and all critical care pts) @ -no (Hemanth Tobin) Medical Decision Making <Teo Mcgraw - Last Filed: 04/05/24 20:51> - Radiology Data Radiology results: report reviewed (Chest x-ray is negative for acute disease), image reviewed <Hemanth Tobin - Last Filed: 04/13/24 21:29> - Medical Decision Making I completed the quick note portion of this chart signed DOTTY [place]aza (Teo Mcgraw) 53 female well-known to the ER for cough and upper respiratory infection viral syndrome patient can be discharged home (Hemanth Tobin) - Lab Data Lab Results 04/05/24 Range/Units 21:40 Influenza Type A (PCR) Not Detected (Not Detectd) Influenza Type B (PCR) Not Detected (Not Detectd) RSV (PCR) Not Detected (Not Detectd) SARS-CoV-2 (PCR) Not Detected (Not Detectd) Disposition <Teo Mcgraw - Last Filed: 04/05/24 20:51> Is patient prescribed a controlled substance at d/c from ED?: No Time of Disposition: 22:00 <Hemanth Tobin - Last Filed: 04/13/24 21:29> Clinical Impression: Upper respiratory tract infection Disposition: HOME SELF-CARE Condition: Good Instructions (If sedation given, give patient instructions): Upper Respiratory Infection (ED) Referrals: [facility] [Primary Care Provider] - 1-2 days
[2024-04-05 21:45] VITALS: PULSE 78; RESP 18; TEMP 98.6
--- NOTE | 2024-04-05 22:01 | XR ---
EXAMINATION TYPE: XR chest 2V DATE OF EXAM: 04/05/2024 9:49 PM COMPARISON: None CLINICAL INDICATION: Female, 53 years old with history of Cough, pleuritic pain; [facility] TECHNIQUE: XR chest 2V Frontal and lateral views of the chest. FINDINGS: Lungs/Pleura: There is no evidence of pleural effusion, focal consolidation, or pneumothorax. Pulmonary vascularity: Unremarkable. Heart/mediastinum: Cardiomediastinal silhouette is unremarkable. Musculoskeletal: No acute osseous pathology. IMPRESSION: No acute cardiopulmonary disease/process. [facility], , 04/05/2024 9:58 PM
[2024-04-05] MEDS: ONDANSETRON ODT 4 MG TAB PO STA (22:17)
[2024-04-05] MEDS: BENZONATATE 100 MG CAP PO STA (22:17)
[2024-04-05] MEDS: HYDROmorphone 1 MG/ML 1 ML SYRINGE IM STA (22:17)
[2024-04-05 22:35] VITALS: BP 155/93
== END 2024-04-05 22:25 | disposition home or self-care (01) ==
LOC: EC 20:35
DX: J06.9 Acute upper respiratory infection, unspecified (principal); F17.290 Nicotine dependence, other tobacco product, uncomplicated; Z88.1 Allergy status to other antibiotic agents
CPT/HCPCS: 87636; 71046; 99284; 96372; J1171

== ENCOUNTER 2024-04-06 17:48 | Emergency (ER) | payer MEDICARE ==
--- NOTE | 2024-04-06 18:27 | ED ---
General Adult HPI - General Chief complaint: Upper Respiratory Infection Stated complaint: Cough,Generalized pain Time Seen by Provider: 04/06/24 18:00 Source: patient Mode of arrival: wheelchair Limitations: no limitations - History of Present Illness Initial comments: 53-year-old female presenting with chief complaint of cough. Patient states she has had this cough for several weeks. She was seen here yesterday for the cough as well. Patient states that she wants something for her cough. She is having no chest pain or difficulty breathing. No palpitations or weakness. No fever. Mild congestion. No sore throat. - Related Data Home Medications Medication Instructions Recorded Confirmed Atorvastatin [Lipitor] 80 mg PO HS 06/25/19 02/17/24 lisinopriL 40 mg PO DAILY 09/24/20 02/17/24 traZODone HCL 50 mg PO HS 01/11/21 02/17/24 INSULIN ASPART (NovoLOG) [NovoLOG 20 unit SQ AC-TID 11/26/22 02/17/24 (formulary)] Albuterol Inhaler [Ventolin Hfa 2 puff INHALATION RT-QID PRN 03/01/23 02/17/24 Inhaler] Insulin Glargine,Hum.rec.anlog 30 units SQ DAILY 07/30/23 02/17/24 [Lantus Solostar Pen] Dulaglutide [Trulicity] 1.5 mg SQ DIRECTED 02/17/24 02/17/24 Ezetimibe [Zetia] 10 mg PO HS 02/17/24 02/17/24 Insulin Aspart (Niacinamide) 8 units SQ DIRECTED 02/17/24 02/17/24 [Fiasp 100 Unit/ml Flextouch Pen] Nystatin 100,000 Unit/gm Powd 1 applic TOPICAL BID PRN 02/17/24 02/17/24 [Mycostatin Powder] Pantoprazole [Protonix] 40 mg PO DAILY 02/17/24 02/17/24 metFORMIN HCL [Glucophage] 500 mg PO BID 02/17/24 02/17/24 Previous Rx's Medication Instructions Recorded amLODIPine [Norvasc] 10 mg PO DAILY #30 tab 03/11/23 hydrALAZINE HCL [Apresoline] 25 mg PO BID #60 tab 03/11/23 Mupirocin 2% Oint [Bactroban 2% 1 applic TOPICAL TID #22 gm 02/17/24 Oint] Ondansetron Odt [Zofran Odt] 4 mg PO Q8HR PRN #10 tab 02/17/24 Sulfamethox-Tmp 800-160Mg [Bactrim 2 tab PO Q12HR #28 tab 02/17/24 DS 800-160 mg] Dicyclomine [Bentyl] 20 mg PO QID #15 tablet 03/15/24 Ondansetron Odt [Zofran Odt] 4 mg PO Q8HR PRN #10 tab 03/29/24 Benzonatate [Tessalon Perles] 100 mg PO TID PRN #9 capsule 04/06/24 Allergies Allergy/AdvReac Type Severity Reaction Status Date / Time levofloxacin [From Levaquin] Allergy Rash/Hives Verified 04/07/24 19:56 Review of Systems ROS Statement: Those systems with pertinent positive or pertinent negative responses have been documented in the HPI. ROS Other: All systems not noted in ROS Statement are negative. Past Medical History Past Medical History: Diabetes Mellitus, GERD/Reflux, Hyperlipidemia, Hypertension, Syncope Additional Past Medical History / Comment(s): Pt recently admitted to [facility] on 07/21/21 with uncontrolled IDDM and hyperkalemia. Other hx: Recurrent pancreatitis, hypertriglyceridemia, elevated lipase, IDDM type II, UTI, chronic low back pain, bulging discs, dental abscesses in past. History of Any Multi-Drug Resistant Organisms: MRSA Date of last positivie culture/infection: 03/01/23 MDRO Source:: Abdomen Past Surgical History: Tubal Ligation Additional Past Surgical History / Comment(s): Age 7 had VSD repair, tumor removal 03/2023 Past Anesthesia/Blood Transfusion Reactions: No Reported Reaction Past Psychological History: No Psychological Hx Reported Smoking Status: Former smoker, Second hand smoke exposure, Vaper Past Alcohol Use History: None Reported Past Drug Use History: None Reported - Past Family History Mother Family Medical History: No Reported History Additional Family Medical History / Comment(s): Mother was healthy. She is , pt cannot recall cause of . Father Family Medical History: Pneumonia Additional Family Medical History / Comment(s): Father at the age of 67yrs from pneumonia General Exam Limitations: no limitations General appearance: alert, in no apparent distress Head exam: Present: atraumatic, normocephalic, normal inspection Eye exam: Present: normal appearance, EOMI ENT exam: Present: normal exam Neck exam: Present: normal inspection. Absent: meningismus Respiratory exam: Present: normal lung sounds bilaterally. Absent: respiratory distress, wheezes, rales, rhonchi, stridor Cardiovascular Exam: Present: regular rate, normal rhythm, normal heart sounds. Absent: systolic murmur, diastolic murmur, rubs, gallop, clicks Neurological exam: Present: alert, oriented X3 Psychiatric exam: Present: normal affect, normal mood Skin exam: Present: warm, dry, normal color Course Vital Signs 04/06/24 04/06/24 17:49 18:47 Temperature 98.5 F 98.6 F Pulse Rate 80 77 Respiratory 16 18 Rate Blood Pressure 147/79 156/85 O2 Sat by Pulse 95 97 Oximetry Medical Decision Making - Medical Decision Making Was pt. sent in by a medical professional or institution (, PA, DUMP TRUCK OPERATOR, urgent care, hospital, or fpc...) When possible be specific @ -No Did you speak to anyone other than the patient for history (EMS, parent, family, police, friend...)? What history was obtained from this source @ -No Did you review nursing and triage notes (agree or disagree)? Why? @ -I reviewed and agree with nursing and triage notes Were old charts reviewed (outside hosp., previous admission, EMS record, old EKG, old radiological studies, urgent care reports/EKG's, fpc records)? Report findings @ -Reviewed yesterday's visit including swabs and chest x-ray which were both negative Differential Diagnosis (chest pain, altered mental status, abdominal pain women, abdominal pain men, vaginal bleeding, weakness, fever, dyspnea, syncope, headache, dizziness, GI bleed, back pain, seizure, CVA, palpatations, mental health, musculoskeletal)? @ -Differential includes URI, bronchitis, pneumonia, this is not an all- inclusive list EKG interpreted by me (3pts min.). @ -As above X-rays interpreted by me (1pt min.). @ -None done CT interpreted by me (1pt min.). @ -None done U/S interpreted by me (1pt. min.). @ -None done What testing was considered but not performed or refused? (CT, X-rays, U/S, labs)? Why? @ -Chest x-ray considered, however the patient had negative chest x-ray yesterday no need to repeat today What meds were considered but not given or refused? Why? @ -None Did you discuss the management of the patient with other professionals (professionals i.e. , PA, DUMP TRUCK OPERATOR, lab, RT, psych nurse, social service director, literary agent, teacher, legal officer, case coordinator)? Give summary @ -No Was smoking cessation discussed for >3mins.? @ -No Was critical care preformed (if so, how long)? @ -No Were there social determinants of health that impacted care today? How? (Homelessness, low income, unemployed, alcoholism, drug addiction, transportation, low edu. Level, literacy, decrease access to med. care, retirement, rehab)? @ -No Was there de-escalation of care discussed even if they declined (Discuss DNR or withdrawal of care, Hospice)? DNR status @ -No What co-morbidities impacted this encounter? (DM, HTN, Smoking, COPD, CAD, Cancer, CVA, ARF, Chemo, Hep., AIDS, mental health diagnosis, sleep apnea, morbid obesity)? @ -None Was patient admitted / discharged? Hospital course, mention meds given and route, prescriptions, significant lab abnormalities, going to OR and other pertinent info. @ -53-year-old female presenting with chief complaint of cough ongoing for several weeks. No fever. No difficulty breathing. She was seen here yesterday for the same complaint, she had a negative chest x-ray negative viral testing. We will not repeat the test again today. She is given Tessalon Perles for her cough and educated on supportive management at home. She is nontoxic-appearing and can be discharged home. Follow-up with PCP. Report back to ER with any new or worsening symptoms. Discussed return parameters and answered all questions. Patient conveyed verbal understanding and agreed to the plan. I discussed this case in detail with my attending Dr. Mcgowan Undiagnosed new problem with uncertain prognosis? @ -No Drug Therapy requiring intensive monitoring for toxicity (Heparin, Nitro, Insulin, Cardizem)? @ -No Were any procedures done? @ -No Diagnosis/symptom? @ -Cough Acute, or Chronic, or Acute on Chronic? @ -Acute Uncomplicated (without systemic symptoms) or Complicated (systemic symptoms)? @ -Uncomplicated Side effects of treatment? @ -No Exacerbation, Progression, or Severe Exacerbation? @ -No Poses a threat to life or bodily function? How? (Chest pain, [place], [place], pneumonia, PE, COPD, DKA, ARF, appy, cholecystitis, CVA, Diverticulitis, Homicidal, Suicidal, threat to staff... and all critical care pts) @ -No Disposition Clinical Impression: Cough Disposition: HOME SELF-CARE Condition: Good Instructions (If sedation given, give patient instructions): Acute Cough (ED) Additional Instructions: Follow-up with PCP. Report back to ER with any new or worsening symptoms. Prescriptions: Benzonatate [Tessalon Perles] 100 mg PO TID PRN #9 capsule PRN Reason: Cough Is patient prescribed a controlled substance at d/c from ED?: No Referrals: [facility] [Primary Care Provider] - 1-2 days Time of Disposition: 18:27
[2024-04-06 18:50] VITALS: BP 156/85; PULSE 77; RESP 18; TEMP 98.6
== END 2024-04-06 18:49 | disposition home or self-care (01) ==
LOC: EC 17:48
DX: R05.9 Cough, unspecified (principal); F17.290 Nicotine dependence, other tobacco product, uncomplicated; Z88.8 Allergy status to other drugs, medicaments and biological substances
CPT/HCPCS: 99284

== ENCOUNTER 2024-04-07 19:35 | Emergency (ER) | payer MEDICARE ==
--- NOTE | 2024-04-07 19:54 | ED ---
Recheck HPI - General Stated Complaint: Pain Time Seen by Provider: 04/07/24 19:38 Source: RN notes reviewed, old records reviewed Mode of arrival: EMS Limitations: no limitations - History of Present Illness Initial Comments: This is a 53-year-old female to the ER for evaluation patient presents today for evaluation regards to knee pain left knee pain difficulty moving left knee history of a fall recently. Patient is well-known to our ER for ER visits for multiple different reasons no prior evaluation for this left knee pain MD Complaint: other (Left knee pain) -: days(s) Symptoms Since Prior Visit: worsening pain Context: called for abnormal lab result Treatments Prior to Arrival: other (0) - Related Data Home Medications Medication Instructions Recorded Confirmed Atorvastatin [Lipitor] 80 mg PO HS 06/25/19 02/17/24 lisinopriL 40 mg PO DAILY 09/24/20 02/17/24 traZODone HCL 50 mg PO HS 01/11/21 02/17/24 INSULIN ASPART (NovoLOG) [NovoLOG 20 unit SQ AC-TID 11/26/22 02/17/24 (formulary)] Albuterol Inhaler [Ventolin Hfa 2 puff INHALATION RT-QID PRN 03/01/23 02/17/24 Inhaler] Insulin Glargine,Hum.rec.anlog 30 units SQ DAILY 07/30/23 02/17/24 [Lantus Solostar Pen] Dulaglutide [Trulicity] 1.5 mg SQ DIRECTED 02/17/24 02/17/24 Ezetimibe [Zetia] 10 mg PO HS 02/17/24 02/17/24 Insulin Aspart (Niacinamide) 8 units SQ DIRECTED 02/17/24 02/17/24 [Fiasp 100 Unit/ml Flextouch Pen] Nystatin 100,000 Unit/gm Powd 1 applic TOPICAL BID PRN 02/17/24 02/17/24 [Mycostatin Powder] Pantoprazole [Protonix] 40 mg PO DAILY 02/17/24 02/17/24 metFORMIN HCL [Glucophage] 500 mg PO BID 02/17/24 02/17/24 Previous Rx's Medication Instructions Recorded amLODIPine [Norvasc] 10 mg PO DAILY #30 tab 03/11/23 hydrALAZINE HCL [Apresoline] 25 mg PO BID #60 tab 03/11/23 Mupirocin 2% Oint [Bactroban 2% 1 applic TOPICAL TID #22 gm 02/17/24 Oint] Ondansetron Odt [Zofran Odt] 4 mg PO Q8HR PRN #10 tab 02/17/24 Sulfamethox-Tmp 800-160Mg [Bactrim 2 tab PO Q12HR #28 tab 02/17/24 DS 800-160 mg] Dicyclomine [Bentyl] 20 mg PO QID #15 tablet 03/15/24 Ondansetron Odt [Zofran Odt] 4 mg PO Q8HR PRN #10 tab 03/29/24 Benzonatate [Tessalon Perles] 100 mg PO TID PRN #9 capsule 04/06/24 Allergies Allergy/AdvReac Type Severity Reaction Status Date / Time levofloxacin [From Levaquin] Allergy Rash/Hives Verified 04/07/24 19:56 Review of Systems ROS Statement: Those systems with pertinent positive or pertinent negative responses have been documented in the HPI. ROS Other: All systems not noted in ROS Statement are negative. Past Medical History Past Medical History: Diabetes Mellitus, GERD/Reflux, Hyperlipidemia, Hypertension, Syncope Additional Past Medical History / Comment(s): Pt recently admitted to [facility] on 07/21/21 with uncontrolled IDDM and hyperkalemia. Other hx: Recurrent pancreatitis, hypertriglyceridemia, elevated lipase, IDDM type II, UTI, chronic low back pain, bulging discs, dental abscesses in past. History of Any Multi-Drug Resistant Organisms: MRSA Date of last positivie culture/infection: 03/01/23 MDRO Source:: Abdomen Past Surgical History: Tubal Ligation Additional Past Surgical History / Comment(s): Age 7 had VSD repair, tumor removal 03/2023 Past Anesthesia/Blood Transfusion Reactions: No Reported Reaction Past Psychological History: No Psychological Hx Reported Smoking Status: Former smoker, Second hand smoke exposure, Vaper Past Alcohol Use History: None Reported Past Drug Use History: None Reported - Past Family History Mother Family Medical History: No Reported History Additional Family Medical History / Comment(s): Mother was healthy. She is , pt cannot recall cause of . Father Family Medical History: Pneumonia Additional Family Medical History / Comment(s): Father at the age of 67yrs from pneumonia General Exam General appearance: alert, in no apparent distress Head exam: Present: atraumatic, normocephalic, normal inspection Eye exam: Present: normal appearance, PERRL, EOMI. Absent: scleral icterus, conjunctival injection, periorbital swelling ENT exam: Present: normal exam, mucous membranes moist Neck exam: Present: normal inspection. Absent: tenderness, meningismus, lymphadenopathy Respiratory exam: Present: normal lung sounds bilaterally. Absent: respiratory distress, wheezes, rales, rhonchi, stridor Cardiovascular Exam: Present: regular rate, normal rhythm, normal heart sounds. Absent: systolic murmur, diastolic murmur, rubs, gallop, clicks GI/Abdominal exam: Present: soft, normal bowel sounds. Absent: distended, tenderness, guarding, rebound, rigid Extremities exam: Present: normal inspection, full ROM, normal capillary refill. Absent: tenderness, pedal edema, joint swelling, calf tenderness Back exam: Present: normal inspection Neurological exam: Present: alert, oriented X3, CN II-XII intact Psychiatric exam: Present: normal affect, normal mood Skin exam: Present: warm, dry, intact, normal color. Absent: rash Course Vital Signs 04/07/24 19:55 Temperature 98 F Pulse Rate 77 Respiratory 18 Rate Blood Pressure 130/84 O2 Sat by Pulse 97 Oximetry - Reevaluation(s) Reevaluation #1: 04/07/24 20:14 Medical records reviewed Reevaluation #2: 04/07/24 20:15 Patient's pain is improved Reevaluation #3: 04/07/24 20:15 Patient informed of results and questions answered Reevaluation #4: Was pt. sent in by a medical professional or institution (, PA, GEM EXPERT, urgent care, hospital, or long term...) When possible be specific @ -no Did you speak to anyone other than the patient for history (EMS, parent, family, police, friend...)? What history was obtained from this source @ -no Did you review nursing and triage notes (agree or disagree)? Why? @ -agree Are old charts reviewed (outside hosp., previous admission, EMS record, old EKG, old radiological studies, urgent care reports/EKG's, long term records)? Report findings @ -yes Differential Diagnosis (chest pain, altered mental status, abdominal pain women, abdominal pain men, vaginal bleeding, weakness, fever, dyspnea, syncope, headache, dizziness, GI bleed, back pain, seizure, CVA, palpatations, mental health, musculoskeletal)? @ -prior EKG interpreted by me (3pts min.). @ -yes X-rays interpreted by me (1pt min.). @ -yes negative for acute disease CT interpreted by me (1pt min.). @ -no U/S interpreted by me (1pt. min.). @ -no What testing was considered but not performed or refused? (CT, X-rays, U/S, labs)? Why? @ -none What meds were considered but not given or refused? Why? @ -none Did you discuss the management of the patient with other professionals (professionals i.e. , PA, GEM EXPERT, lab, RT, psych nurse, social media content manager, air pollution auditor, teacher, intelligence officer basic, major case detective)? Give summary @ -no Was smoking cessation discussed for >3mins.? @ -no Was critical care preformed (if so, how long)? @ -no Were there social determinants of health that impacted care today? How? (Homelessness, low income, unemployed, alcoholism, drug addiction, transportation, low edu. Level, literacy, decrease access to med. care, residential, rehab)? @ -none Was there de-escalation of care discussed even if they declined (Discuss DNR or withdrawal of care, Hospice)? DNR status @ -no What co-morbidities impacted this encounter? (DM, HTN, Smoking, COPD, CAD, Cancer, CVA, ARF, Chemo, Hep., AIDS, mental health diagnosis, sleep apnea, morbid obesity)? @ -none Was patient admitted / discharged? Hospital course, mention meds given and route, prescriptions, significant lab abnormalities, going to OR and other pertinent info. @ - Undiagnosed new problem with uncertain prognosis? @ -no Drug Therapy requiring intensive monitoring for toxicity (Heparin, Nitro, Insulin, Cardizem)? @ -no Were any procedures done? @ -no Diagnosis/symptom? @ - Acute, or Chronic, or Acute on Chronic? @ -Acute Uncomplicated (without systemic symptoms) or Complicated (systemic symptoms)? @ -Complicated Side effects of treatment? @ -no Exacerbation, Progression, or Severe Exacerbation? @ -exacerbation Poses a threat to life or bodily function? How? (Chest pain, [place], [place], pneumonia, PE, COPD, DKA, ARF, appy, cholecystitis, CVA, Diverticulitis, Homicidal, Suicidal, threat to staff... and all critical care pts) @ -yes Medical Decision Making - Medical Decision Making 52-year-old female with left knee pain. Pain control x-ray negative patient can be discharged home - Radiology Data Radiology results: report reviewed (X-ray left knee negative for traumatic injury), image reviewed Disposition Clinical Impression: Left knee pain Disposition: HOME SELF-CARE Condition: Good Instructions (If sedation given, give patient instructions): Knee Pain (ED) Is patient prescribed a controlled substance at d/c from ED?: No Referrals: [facility] [Primary Care Provider] - 1-2 days Time of Disposition: 20:30
[2024-04-07 19:56] VITALS: BP 130/84; PULSE 77; RESP 18; TEMP 98
[2024-04-07] MEDS: HYDROmorphone 1 MG/ML 1 ML SYRINGE IM STA (20:28)
--- NOTE | 2024-04-07 20:31 | XR ---
EXAMINATION TYPE: XR knee complete LT DATE OF EXAM: 04/07/2024 8:24 PM COMPARISON: 03/03/2021 CLINICAL INDICATION: Female, 53 years old with history of pain, , TECHNIQUE: 3 views FINDINGS: There is moderate to severe loss of cartilage joint space in the medial compartment. Prominent tricom partmental degenerative spurring is noted. No knee joint effusion. Extensor mechanism is intact. No a cute fracture, subluxation, dislocation. IMPRESSION: Tricompartmental osteoarthrosis, moderate to severe in the medial compartment. No acute fracture seen . [facility], , 04/07/2024 8:29 PM
[2024-04-07] MEDS: IBUPROFEN 600 MG STARTER PACK 4 TAB BTL PO STA (20:48)
[2024-04-07] MEDS: traMADol 50 MG STARTER PACK 3 TAB BTL PO STA (20:48)
== END 2024-04-07 20:54 | disposition home or self-care (01) ==
LOC: EC 19:35
DX: M25.562 Pain in left knee (principal); F17.290 Nicotine dependence, other tobacco product, uncomplicated; Z88.1 Allergy status to other antibiotic agents
CPT/HCPCS: 73562; 99283; 96372; J1171

== ENCOUNTER 2024-04-11 01:07 | Emergency (ER) | payer MEDICARE ==
[2024-04-11 01:13] VITALS: TEMP 97.5
--- NOTE | 2024-04-11 02:00 | ED ---
General Adult HPI - General Chief complaint: Recheck/Abnormal Lab/Rx Stated complaint: feeling sick Time Seen by Provider: 04/11/24 01:12 Source: patient, EMS Mode of arrival: EMS Limitations: no limitations - History of Present Illness Initial comments: Patient is a 53-year-old female with a past medical history of diabetes, hypertension, hyperlipidemia presenting today for multiple complaints. Chiefly of which is malaise for the last 2 days. Patient states she has felt fatigued, generalized weakness and decreased appetite x 2 days. Endorses sharp lower abdominal pain, chronic back pain and sharp chest pain. Pain is constant. Nonradiating. Associated nausea, no emesis. Cough productive of clear sputum. Denies hemoptysis. Denies shortness of breath. No history of CAD. She is a non-smoker. Denies fevers. Endorses nasal congestion, sore throat. Denies new numbness, focal weakness or slurred speech. No diarrhea, black or bloody stools. Denies dysuria or hematuria. Endorses headache, similar to headaches she has had in the past. 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 Last took tylenol yesterday morning. - Related Data Home Medications Medication Instructions Recorded Confirmed Atorvastatin [Lipitor] 80 mg PO HS 06/25/19 02/17/24 lisinopriL 40 mg PO DAILY 09/24/20 02/17/24 traZODone HCL 50 mg PO HS 01/11/21 02/17/24 INSULIN ASPART (NovoLOG) [NovoLOG 20 unit SQ AC-TID 11/26/22 02/17/24 (formulary)] Albuterol Inhaler [Ventolin Hfa 2 puff INHALATION RT-QID PRN 03/01/23 02/17/24 Inhaler] Insulin Glargine,Hum.rec.anlog 30 units SQ DAILY 07/30/23 02/17/24 [Lantus Solostar Pen] Dulaglutide [Trulicity] 1.5 mg SQ DIRECTED 02/17/24 02/17/24 Ezetimibe [Zetia] 10 mg PO HS 02/17/24 02/17/24 Insulin Aspart (Niacinamide) 8 units SQ DIRECTED 02/17/24 02/17/24 [Fiasp 100 Unit/ml Flextouch Pen] Nystatin 100,000 Unit/gm Powd 1 applic TOPICAL BID PRN 02/17/24 02/17/24 [Mycostatin Powder] Pantoprazole [Protonix] 40 mg PO DAILY 02/17/24 02/17/24 metFORMIN HCL [Glucophage] 500 mg PO BID 02/17/24 02/17/24 Previous Rx's Medication Instructions Recorded amLODIPine [Norvasc] 10 mg PO DAILY #30 tab 03/11/23 hydrALAZINE HCL [Apresoline] 25 mg PO BID #60 tab 03/11/23 Mupirocin 2% Oint [Bactroban 2% 1 applic TOPICAL TID #22 gm 02/17/24 Oint] Ondansetron Odt [Zofran Odt] 4 mg PO Q8HR PRN #10 tab 02/17/24 Sulfamethox-Tmp 800-160Mg [Bactrim 2 tab PO Q12HR #28 tab 02/17/24 DS 800-160 mg] Dicyclomine [Bentyl] 20 mg PO QID #15 tablet 03/15/24 Ondansetron Odt [Zofran Odt] 4 mg PO Q8HR PRN #10 tab 03/29/24 Benzonatate [Tessalon Perles] 100 mg PO TID PRN #9 capsule 04/06/24 Ibuprofen [Motrin] 600 mg PO Q8HR PRN 30 Days #30 tab 04/11/24 Allergies Allergy/AdvReac Type Severity Reaction Status Date / Time levofloxacin [From Levaquin] Allergy Rash/Hives Verified 04/13/24 16:14 Review of Systems ROS Statement: Those systems with pertinent positive or pertinent negative responses have been documented in the HPI. ROS Other: All systems not noted in ROS Statement are negative. Constitutional: Reports: weakness. Denies: fever, chills Eyes: Denies: vision change ENT: Reports: throat pain, congestion Respiratory: Reports: cough. Denies: dyspnea, wheezes, hemoptysis Cardiovascular: Reports: chest pain. Denies: edema Gastrointestinal: Reports: abdominal pain, nausea. Denies: vomiting, diarrhea, constipation, melena, hematochezia Genitourinary: Denies: dysuria, frequency, hematuria Musculoskeletal: Reports: back pain, myalgia Neurological: Reports: headache. Denies: numbness, vertigo Past Medical History Past Medical History: Diabetes Mellitus, GERD/Reflux, Hyperlipidemia, Hypertension, Syncope Additional Past Medical History / Comment(s): Pt recently admitted to [facility] on 07/21/21 with uncontrolled IDDM and hyperkalemia. Other hx: Recurrent pancreatitis, hypertriglyceridemia, elevated lipase, IDDM type II, UTI, chronic low back pain, bulging discs, dental abscesses in past. History of Any Multi-Drug Resistant Organisms: MRSA Date of last positivie culture/infection: 03/01/23 MDRO Source:: Abdomen Past Surgical History: Tubal Ligation Additional Past Surgical History / Comment(s): Age 7 had VSD repair, tumor removal 03/2023 Past Anesthesia/Blood Transfusion Reactions: No Reported Reaction Past Psychological History: No Psychological Hx Reported Smoking Status: Former smoker, Second hand smoke exposure, Vaper Past Alcohol Use History: None Reported Past Drug Use History: None Reported - Past Family History Mother Family Medical History: No Reported History Additional Family Medical History / Comment(s): Mother was healthy. She is , pt cannot recall cause of . Father Family Medical History: Pneumonia Additional Family Medical History / Comment(s): Father at the age of 67yrs from pneumonia General Exam - General Exam Comments Initial Comments: PE: CONSTITUTIONAL: No apparent distress, well appearing SKIN: Warm, dry, no jaundice, hives or petechiae EYES: Pupils are equally round, extraocular movements intact without nystagmus, clear conjunctiva, non-icteric sclera HENT: Normocephalic, atraumatic, moist mucus membranes, oropharynx clear without exudates NECK: , Full range of motion, normal appearance, no thyromegaly or lymphadenopathy PULMONARY: Clear to auscultation without wheezes, rhonchi, or rales, normal excursion, no accessory muscle use and no stridor CARDIOVASCULAR: Regular rate, rhythm, normal S1 and S2. No appreciated murmurs, rubs or gallops. Strong radial pulses with intact distal perfusion. No lower extremity edema, reproducible chest wall tenderness palpation to the left of the sternum at the costochondral junction GASTROINTESTINAL: Soft, active bowel sounds throughout, non-tender, non-di stended, no palpable masses, no rebound or guarding. No hepatosplenomegaly MUSCULOSKELETAL: Extremities have no gross deformity, no edema, redness, or swelling. No calf swelling, no midline spinal tenderness to palpation NEUROLOGIC:_a/o x 3, GCS 15, normal mentation and speech. Moves all extremities x 4 without motor or sensory deficit PSYCHIATRIC:_normal mood and affect, thought process is clear and linear Limitations: no limitations Course Vital Signs 04/11/24 04/11/24 04/11/24 01:09 03:05 04:23 Temperature 97.5 F L Pulse Rate 62 64 68 Respiratory 16 16 18 Rate Blood Pressure 158/76 154/88 152/88 O2 Sat by Pulse 97 97 98 Oximetry EKG Findings - EKG Comments: EKG Findings:: Sinus rhythm, rate 64 beats minute OH interval 150 ms QRS duration 85 ms, QT/QTc 380/390 ms, normal axis, no ST elevations or depressions, Q-wave in V1, V2. Compared to EKG performed on 03/12/2024, Q waves were present then as well, no new ST elevations or depressions when compared to prior, no significant changes from prior Medical Decision Making - Medical Decision Making Was pt. sent in by a medical professional or institution (, PA, [facility], urgent care, hospital, or [facility]...) When possible be specific @ -No Did you speak to anyone other than the patient for history (EMS, parent, family, police, friend...)? What history was obtained from this source @ -No Did you review nursing and triage notes (agree or disagree)? Why? @ -I reviewed and agree with nursing and triage notes Were old charts reviewed (outside hosp., previous admission, EMS record, old EKG, old radiological studies, urgent care reports/EKG's, [facility] records)? Report findings @ -Medical records reviewed patient has multiple recent ED visits, 11 total in the month of March, typically presents for myriad of complaints Differential Diagnosis (chest pain, altered mental status, abdominal pain women, abdominal pain men, vaginal bleeding, weakness, fever, dyspnea, syncope, headache, dizziness, GI bleed, back pain, seizure, CVA, palpatations, mental health, musculoskeletal)? @Differential diagnose cynthia broad over top considerations include viral infection such as COVID or influenza, chostochondritis, ACS, DKA, uncontrolled hyperglycemia, pancreatitis, this is not an all inclusive list EKG interpreted by me (3pts min.). @ -As above X-rays interpreted by me (1pt min.). @ -None done CT interpreted by me (1pt min.). @ -None done U/S interpreted by me (1pt. min.). @ -None done What testing was considered but not performed or refused? (CT, X-rays, U/S, labs)? Why? @ -None What meds were considered but not given or refused? Why? @ -None Did you discuss the management of the patient with other professionals (professionals i.e. , PA, [facility], lab, RT, psych nurse, social work case manager, tanker driver, teacher, security flex officer, insurance case manager)? Give summary @ -No Was smoking cessation discussed for >3mins.? @ -No Was critical care preformed (if so, how long)? @ -No Were there social determinants of health that impacted care today? How? (Homelessness, low income, unemployed, alcoholism, drug addiction, transp ortation, low edu. Level, literacy, decrease access to med. care, senior care, rehab)? @ -Pt has a guardian Was there de-escalation of care discussed even if they declined (Discuss DNR or withdrawal of care, Hospice)? @ -No What co-morbidities impacted this encounter? (DM, HTN, Smoking, COPD, CAD, Cancer, CVA, ARF, Chemo, Hep., AIDS, mental health diagnosis, sleep apnea, morbid obesity)? @Diabetes, hypertension hyperlipidemia Was patient admitted / discharged? Hospital course, mention meds given and r oute, prescriptions, significant lab abnormalities, going to OR and other pertinent info. @Discharged- Patient is a 53-year-old female past medical history diabetes, hypertension, hyperlipidemia presenting today for malaise with associated sharp chest pain, abdominal pain and nausea x 2 days. On my assessment patient is well-appearing resting comfortably in bed. Complete history and physical exam was performed. Exam significant for reproducible chest wall tenderness to palpation of the left costochondral junction, lungs clear to auscultation bilaterally, normal S1-2 on cardiac exam without murmurs rubs or gallops, no lower extremity edema, extremities are well-perfused, abdomen is soft and nontender without right lower quadrant tenderness. Patient concerned that she has COVID-19 requesting COVID testing. Additionally will obtain EKG, troponin, lipase, amylase, acetone, CBC CMP. If initial troponin within normal limits I do not feel repeat is necessary as patient's pain is been going on for 2 days and at this point would be elvated if 2/2 ACS. Labs and imaging reviewed. Grossly within normal limits. Significant mild hyperglycemia. Otherwise largely unremarkable. On reassessment patient endorses improvement of abdominal and chest pain. Is comfortable discharge home. Was able to tolerate p.o. intake prior to discharge. In my medical judgment there is currently no evidence of an immediate life- threatening or surgical condition. Discharge is therefore indicated at this time. Discharge treatment instructions, follow up instructions, and appropriate emergency department return precautions were discussed with the patient and/or medical decision maker. Patient and/or medical decision maker expressed understanding of and agreed with the treatment plan, follow up instructions, and emergency department return precaution. All patient's and/or medical decision m daniel's questions were answered. Undiagnosed new problem with uncertain prognosis? @ -No Drug Therapy requiring intensive monitoring for toxicity (Heparin, Nitro, Insulin, Cardizem)? @ -No Were any procedures done? @ -No Diagnosis/symptom? Malaise, abdominal pain, costochondritis Acute, or Chronic, or Acute on Chronic? Acute Uncomplicated (without systemic symptoms) or Complicated (systemic symptoms)? @Complicated Side effects of treatment? @ -No Exacerbation, Progression, or Severe Exacerbation? @ -No Poses a threat to life or bodily function? How? (Chest pain, USA, MD, pneumonia, PE, COPD, DKA, ARF, appy, cholecystitis, CVA, Diverticulitis, Homicidal, Suicidal, threat to staff... and all critical care pts) @ -No - Lab Data Result diagrams: 04/08/24 02:31 04/11/24 02:31 Lab Results 04/08/24 04/08/24 04/11/24 Range/Units 01:48 02:31 02:04 WBC 9.7 (3.8-10.6) k/uL RBC 4.90 (3.80-5.40) m/uL Hgb 13.1 (11.4-16.0) gm/dL Hct 41.6 (34.0-46.0) % MCV 84.8 (80.0-100.0) fL MCH 26.8 (25.0-35.0) pg MCHC 31.6 (31.0-37.0) g/dL RDW 16.3 H (11.5-15.5) % Plt Count 502 H (150-450) k/uL MPV 7.2 Neutrophils % 60 % Lymphocytes % 32 % Monocytes % 5 % Eosinophils % 2 % Basophils % 0 % Neutrophils # 5.8 (1.3-7.7) k/uL Lymphocytes # 3.1 (1.0-4.8) k/uL Monocytes # 0.5 (0-1.0) k/uL Eosinophils # 0.2 (0-0.7) k/uL Basophils # 0.0 (0-0.2) k/uL Hypochromasia Slight Anisocytosis Slight Sodium (137-145) mmol/L Potassium (3.5-5.1) mmol/L Chloride (98-107) mmol/L Carbon Dioxide (22-30) mmol/L Anion Gap mmol/L BUN (7-17) mg/dL Creatinine (0.52-1.04) mg/dL Est GFR (CKD-EPI)AfAm (>60 ml/min/1.73 sqM) Est GFR (CKD-EPI)NonAf (>60 ml/min/1.73 sqM) Glucose (74-99) mg/dL Calcium (8.4-10.2) mg/dL Total Bilirubin (0.2-1.3) mg/dL AST (14-36) U/L ALT (4-34) U/L Alkaline Phosphatase (38-126) U/L Troponin I <0.012 (0.000-0.034) ng/mL Total Protein (6.3-8.2) g/dL Albumin (3.5-5.0) g/dL Amylase (30-110) U/L Lipase (23-300) U/L Acetone, Qual (Negative) Influenza Type A (PCR) Not Detected (Not Detectd) Influenza Type B (PCR) Not Detected (Not Detectd) RSV (PCR) Not Detected (Not Detectd) SARS-CoV-2 (PCR) Not Detected (Not Detectd) 04/11/24 Range/Units 02:31 WBC (3.8-10.6) k/uL RBC (3.80-5.40) m/uL Hgb (11.4-16.0) gm/dL Hct (34.0-46.0) % MCV (80.0-100.0) fL MCH (25.0-35.0) pg MCHC (31.0-37.0) g/dL RDW (11.5-15.5) % Plt Count (150-450) k/uL MPV Neutrophils % % Lymphocytes % % Monocytes % % Eosinophils % % Basophils % % Neutrophils # (1.3-7.7) k/uL Lymphocytes # (1.0-4.8) k/uL Monocytes # (0-1.0) k/uL Eosinophils # (0-0.7) k/uL Basophils # (0-0.2) k/uL Hypochromasia Anisocytosis Sodium 130 L (137-145) mmol/L Potassium 5.1 (3.5-5.1) mmol/L Chloride 99 (98-107) mmol/L Carbon Dioxide 18 L (22-30) mmol/L Anion Gap 13 mmol/L BUN 10 (7-17) mg/dL Creatinine 0.63 (0.52-1.04) mg/dL Est GFR (CKD-EPI)AfAm >90 (>60 ml/min/1.73 sqM) Est GFR (CKD-EPI)NonAf >90 (>60 ml/min/1.73 sqM) Glucose 294 H (74-99) mg/dL Calcium 9.3 (8.4-10.2) mg/dL Total Bilirubin 0.5 (0.2-1.3) mg/dL AST 37 H (14-36) U/L ALT 25 (4-34) U/L Alkaline Phosphatase 143 H (38-126) U/L Troponin I (0.000-0.034) ng/mL Total Protein 7.3 (6.3-8.2) g/dL Albumin 4.1 (3.5-5.0) g/dL Amylase 46 (30-110) U/L Lipase 157 (23-300) U/L Acetone, Qual Negative (Negative) Influenza Type A (PCR) (Not Detectd) Influenza Type B (PCR) (Not Detectd) RSV (PCR) (Not Detectd) SARS-CoV-2 (PCR) (Not Detectd) Disposition Clinical Impression: Malaise, Abdominal pain, Cough, Nausea, Costochondritis, acute Disposition: HOME SELF-CARE Condition: Good Additional Instructions: Every disease is a spectrum and a small chance still exists that a serious condition could develop, for this reason, please monitor yourself closely for new, changing or worsening symptoms, symptoms that persist beyond 48 hours, fever, coughing up blood, swelling in your legs, shortness of breath/difficulty in breathing inability to tolerate/keep down fluids or your medications, inability to follow up with outpatient providers as instructed and should you experience these symptoms or should you have any further concerns for your wellbeing please return to the ED or call 911 immediately. Your pain can be treated with ibuprofen and acetaminophen. You can take up to 400-600 mg of ibuprofen (Advil, Motrin) 3 times daily (every 8 hours) but can also use lower doses if this relieves your pain. Some people prefer naproxen (Aleve, Naprosyn) which can be taken in doses of 500 mg up to twice a day. Do not take both of these medicines together, and do not combine either with ketorolac (Toradol), meloxicam (Mobic), or indomethacin (Tivorbex). Some people can develop stomach discomfort with higher doses of either ibuprofen or naproxen, if this develops decrease your dose or stop taking it. If you need to take this dose daily for more than a week, please schedule an appointment for re-evaluation with your PCP. Please take these medications with food. You can take up to 1000 mg of acetaminophen (Tylenol) every 6 hours. Be careful as this is included in some medicines like Nyquil, [place], Percocet, Vicodin, STANBACK, Goody's Powders, and Excedrin. You can also use lidocaine patches for topical pain. You can purchase 4% patches over the counter at most drug stores. These can be helpful for pain from your muscles or bones. PLEASE call your primary care physician as soon as possible to arrange / discuss plan for followup appointment. Appointment in the next 1-3 days is strongly encouraged if possible. PLEASE let us know here before you leave if there is anything further we can do to be of any assistance. Take care and feel Better! Prescriptions: Ibuprofen [Motrin] 600 mg PO Q8HR PRN 30 Days #30 tab PRN Reason: Pain Is patient prescribed a controlled substance at d/c from ED?: No Referrals: Ashlee Nguyen, J[facility] [Primary Care Provider] - 1-2 days
[2024-04-11] MEDS: ONDANSETRON 4 MG/2 ML VIAL IVP STA (02:33)
[2024-04-11] MEDS: KETOROLAC 15 MG/ML 1 ML VIAL IVP STA (02:34)
[2024-04-11] MEDS: SODIUM CHLORIDE 0.9% 2,000 ML IV ONE (02:37)
[2024-04-11 02:43] LABS: Anisocytosis Slight; Basophils % (A) 0 %; Eosinophils # (A) 0.2 k/uL (0-0.7); Eosinophils % (A) 2 %; HCT 41.6 % (34.0-46.0); HGB 13.1 gm/dL (11.4-16.0); Hypochromasia Slight; Lymphocytes # (A) 3.1 k/uL (1.0-4.8); Lymphocytes % (A) 32 %; MCH 26.8 pg (25.0-35.0); MCHC 31.6 g/dL (31.0-37.0); MCV 84.8 fL (80.0-100.0); Mean Platelet Volume 7.2; Monocytes # (A) 0.5 k/uL (0-1.0); Monocytes % (A) 5 %; Neutrophils # (A) 5.8 k/uL (1.3-7.7); Neutrophils % (A) 60 %; Platelet Count 502 k/uL (150-450); RDW 16.3 % (11.5-15.5); WBC 9.7 k/uL (3.8-10.6)
[2024-04-11] MEDS: FAMOTIDINE 20 MG TAB PO STA (02:55)
[2024-04-11] MEDS: ACETAMINOPHEN TAB 325 MG TAB PO STA (02:55)
[2024-04-11] MEDS: LIDOCAINE 4% PATCH TOPICAL ONE (02:56)
[2024-04-11] MEDS: MAG HYDROX/AL HYDROX/SIMETH 30 ML, HYOSCYAMINE ELIXIR 10 ML, LIDOCAINE VISCOUS 2% 10 ML PO STA (02:59)
[2024-04-11 03:02] LABS: ALT 25 U/L (4-34); AST 37 U/L (14-36); African American GFR (CKD) >90 (>60 ml/min/1.73 sqM); Albumin 4.1 g/dL (3.5-5.0); Alkaline Phosphatase 143 U/L (38-126); Amylase 46 U/L (30-110); Anion Gap 13 mmol/L; Blood Urea Nitrogen 10 mg/dL (7-17); Calcium 9.3 mg/dL (8.4-10.2); Carbon Dioxide 18 mmol/L (22-30); Chloride 99 mmol/L (98-107); Glucose 294 mg/dL (74-99); Lipase 157 U/L (23-300); Non-African American GFR(CKD) >90 (>60 ml/min/1.73 sqM); Potassium 5.1 mmol/L (3.5-5.1); Sodium 130 mmol/L (137-145); Total Bilirubin 0.5 mg/dL (0.2-1.3); Total Protein 7.3 g/dL (6.3-8.2)
[2024-04-11] MEDS: ONDANSETRON 4 MG ODT STARTER PACK 2 TAB BTL PO STA (04:20)
[2024-04-11 04:25] VITALS: BP 152/88; PULSE 68; RESP 18
--- NOTE | 2024-04-11 04:29 | XR ---
EXAM: XR Chest, 2 Views CLINICAL HISTORY: ITS.REASON XR Reason: left sided chest pain TECHNIQUE: Frontal and lateral views of the chest. COMPARISON: No relevant prior studies available. FINDINGS: Lungs: Unremarkable. No consolidation. Pleural space: Unremarkable. No pneumothorax. Heart: Unremarkable. No cardiomegaly. Mediastinum: Unremarkable. Normal mediastinal contour. Bones/joints: Pediatric sternotomy wires. No acute fracture. IMPRESSION: No acute findings in the chest.
== END 2024-04-11 04:25 | disposition home or self-care (01) ==
LOC: EC 01:07
DX: M94.0 Chondrocostal junction syndrome [Tietze] (principal); R10.30 Lower abdominal pain, unspecified; R53.81 Other malaise; R05.9 Cough, unspecified; R11.10 Vomiting, unspecified; I10 Essential (primary) hypertension; E11.9 Type 2 diabetes mellitus without complications; E78.5 Hyperlipidemia, unspecified; F17.290 Nicotine dependence, other tobacco product, uncomplicated; Z79.4 Long term (current) use of insulin; Z79.84 Long term (current) use of oral hypoglycemic drugs; Z79.899 Other long term (current) drug therapy; Z88.1 Allergy status to other antibiotic agents; Z11.52 Encounter for screening for COVID-19
CPT/HCPCS: 36415; 93005; 80053; 82150; 82009; 83690; 84484; 85025; 87636; 71046; 99284; 96374; 96375; 96361; J2405; J1885; S0119

== ENCOUNTER 2024-04-11 22:46 | Emergency (ER) | payer MEDICARE ==
[2024-04-11 22:50] VITALS: RESP 18
--- NOTE | 2024-04-11 23:42 | ED ---
Recheck HPI - General Chief Complaint: Recheck/Abnormal Lab/Rx Stated Complaint: Cough Time Seen by Provider: 04/11/24 23:25 Source: EMS Mode of arrival: EMS Limitations: no limitations - History of Present Illness Initial Comments: 53-year-old female who is well-known to emergency department presenting for chronic generalized pain and a dry cough. Patient has been evaluated times for similar complaints over the past week for extensive workups have been completed. Patient states that she is having generalized pain from her head down to her toes. States that she has not attempted take any medications today to alleviate symptoms. She denies chest pain, shortness of breath, constipation, diarrhea, hematochezia, or melena. - Related Data Home Medications Medication Instructions Recorded Confirmed Atorvastatin [Lipitor] 80 mg PO HS 06/25/19 02/17/24 lisinopriL 40 mg PO DAILY 09/24/20 02/17/24 traZODone HCL 50 mg PO HS 01/11/21 02/17/24 INSULIN ASPART (NovoLOG) [NovoLOG 20 unit SQ AC-TID 11/26/22 02/17/24 (formulary)] Albuterol Inhaler [Ventolin Hfa 2 puff INHALATION RT-QID PRN 03/01/23 02/17/24 Inhaler] Insulin Glargine,Hum.rec.anlog 30 units SQ DAILY 07/30/23 02/17/24 [Lantus Solostar Pen] Dulaglutide [Trulicity] 1.5 mg SQ DIRECTED 02/17/24 02/17/24 Ezetimibe [Zetia] 10 mg PO HS 02/17/24 02/17/24 Insulin Aspart (Niacinamide) 8 units SQ DIRECTED 02/17/24 02/17/24 [Fiasp 100 Unit/ml Flextouch Pen] Nystatin 100,000 Unit/gm Powd 1 applic TOPICAL BID PRN 02/17/24 02/17/24 [Mycostatin Powder] Pantoprazole [Protonix] 40 mg PO DAILY 02/17/24 02/17/24 metFORMIN HCL [Glucophage] 500 mg PO BID 02/17/24 02/17/24 Previous Rx's Medication Instructions Recorded amLODIPine [Norvasc] 10 mg PO DAILY #30 tab 03/11/23 hydrALAZINE HCL [Apresoline] 25 mg PO BID #60 tab 03/11/23 Mupirocin 2% Oint [Bactroban 2% 1 applic TOPICAL TID #22 gm 02/17/24 Oint] Ondansetron Odt [Zofran Odt] 4 mg PO Q8HR PRN #10 tab 02/17/24 Sulfamethox-Tmp 800-160Mg [Bactrim 2 tab PO Q12HR #28 tab 02/17/24 DS 800-160 mg] Dicyclomine [Bentyl] 20 mg PO QID #15 tablet 03/15/24 Ondansetron Odt [Zofran Odt] 4 mg PO Q8HR PRN #10 tab 03/29/24 Benzonatate [Tessalon Perles] 100 mg PO TID PRN #9 capsule 04/06/24 Ibuprofen [Motrin] 600 mg PO Q8HR PRN 30 Days #30 tab 04/11/24 Allergies Allergy/AdvReac Type Severity Reaction Status Date / Time levofloxacin [From Levaquin] Allergy Rash/Hives Verified 04/11/24 22:50 Review of Systems ROS Statement: Those systems with pertinent positive or pertinent negative responses have been documented in the HPI. ROS Other: All systems not noted in ROS Statement are negative. Past Medical History Past Medical History: Diabetes Mellitus, GERD/Reflux, Hyperlipidemia, Hypertension, Syncope Additional Past Medical History / Comment(s): Pt recently admitted to [facility] on 07/21/21 with uncontrolled IDDM and hyperkalemia. Other hx: Recurrent pancreatitis, hypertriglyceridemia, elevated lipase, IDDM type II, UTI, chronic low back pain, bulging discs, dental abscesses in past. History of Any Multi-Drug Resistant Organisms: MRSA Date of last positivie culture/infection: 03/01/23 MDRO Source:: Abdomen Past Surgical History: Tubal Ligation Additional Past Surgical History / Comment(s): Age 7 had VSD repair, tumor removal 03/2023 Past Anesthesia/Blood Transfusion Reactions: No Reported Reaction Past Psychological History: No Psychological Hx Reported Smoking Status: Former smoker, Second hand smoke exposure, Vaper Past Alcohol Use History: None Reported Past Drug Use History: None Reported - Past Family History Mother Family Medical History: No Reported History Additional Family Medical History / Comment(s): Mother was healthy. She is , pt cannot recall cause of . Father Family Medical History: Pneumonia Additional Family Medical History / Comment(s): Father at the age of 67yrs from pneumonia General Exam Limitations: no limitations General appearance: alert, in no apparent distress, obese ENT exam: Present: normal exam, mucous membranes moist Neck exam: Present: normal inspection. Absent: tenderness, meningismus, lymphadenopathy Respiratory exam: Present: normal lung sounds bilaterally. Absent: respiratory distress, wheezes, rales, rhonchi, stridor Cardiovascular Exam: Present: regular rate, normal rhythm, normal heart sounds. Absent: systolic murmur, diastolic murmur, rubs, gallop, clicks GI/Abdominal exam: Present: soft, normal bowel sounds. Absent: distended, tenderness, guarding, rebound, rigid Extremities exam: Present: normal inspection, full ROM, normal capillary refill. Absent: tenderness, pedal edema, joint swelling, calf tenderness Course Vital Signs 04/11/24 04/11/24 22:47 23:50 Temperature 97.7 F 97.9 F Pulse Rate 65 71 Respiratory 18 18 Rate Blood Pressure 137/68 133/68 O2 Sat by Pulse 96 96 Oximetry Medical Decision Making - Medical Decision Making Was pt. sent in by a medical professional or institution (, PA, DIET KITCHEN COOK, urgent care, hospital, or detention...) When possible be specific @ -No Did you speak to anyone other than the patient for history (EMS, parent, family, police, friend...)? What history was obtained from this source @ -No Did you review nursing and triage notes (agree or disagree)? Why? @ -I reviewed and agree with nursing and triage notes Were old charts reviewed (outside hosp., previous admission, EMS record, old EKG, old radiological studies, urgent care reports/EKG's, detention records)? Report findings @ -No old charts were reviewed Differential Diagnosis (chest pain, altered mental status, abdominal pain women, abdominal pain men, vaginal bleeding, weakness, fever, dyspnea, syncope, headache, dizziness, GI bleed, back pain, seizure, CVA, palpatations, mental health, musculoskeletal)? @ -COVID 19, RSV, influenza, pneumonia, acute bronchitis, URI, this list is not all inclusive EKG interpreted by me (3pts min.). @ -None X-rays interpreted by me (1pt min.). @ -None done CT interpreted by me (1pt min.). @ -None done U/S interpreted by me (1pt. min.). @ -None done What testing was considered but not performed or refused? (CT, X-rays, U/S, labs)? Why? @ -None What meds were considered but not given or refused? Why? @ -None Did you discuss the management of the patient with other professionals (professionals i.e. Dr., PA, DIET KITCHEN COOK, lab, RT, psych nurse, social media marketer, regulatory analyst, teacher, armoured corps officer, watch caser)? Give summary @ -No Was smoking cessation discussed for >3mins.? @ -No Was critical care preformed (if so, how long)? @ -No Were there social determinants of health that impacted care today? How? (Homelessness, low income, unemployed, alcoholism, drug addiction, transportation, low edu. Level, literacy, decrease access to med. care, long term, rehab)? @ -No Was there de-escalation of care discussed even if they declined (Discuss DNR or withdrawal of care, Hospice)? DNR status @ -No What co-morbidities impacted this encounter? (DM, HTN, Smoking, COPD, CAD, Cancer, CVA, ARF, Chemo, Hep., AIDS, mental health diagnosis, sleep apnea, morbid obesity)? @ -None Was patient admitted / discharged? Hospital course, mention meds given and route, prescriptions, significant lab abnormalities, going to OR and other pertinent info. @ -Discharge. 53-year-old female presenting with chronic pain and dry cough. Vitals are stable. Physical examination is unremarkable. Patient divided with dose of pain medication. Reevaluation states that she is feeling better. Recommend patient follows up outpatient with primary care provider. Discussed with Dr. Nugent Undiagnosed new problem with uncertain prognosis? @ -No Drug Therapy requiring intensive monitoring for toxicity (Heparin, Nitro, Insulin, Cardizem)? @ -No Were any procedures done? @ -No Diagnosis/symptom? @ -chronic pain, dry cough Acute, or Chronic, or Acute on Chronic? @ -acute Uncomplicated (without systemic symptoms) or Complicated (systemic symptoms)? @ -uncomplicated Side effects of treatment? @ -No Exacerbation, Progression, or Severe Exacerbation? @ -No Poses a threat to life or bodily function? How? (Chest pain, USA, [place], pneumonia, PE, COPD, DKA, ARF, appy, cholecystitis, CVA, Diverticulitis, Homicidal, Suicidal, threat to staff... and all critical care pts) @ -No Disposition Clinical Impression: Chronic pain Disposition: HOME SELF-CARE Condition: Good Additional Instructions: Please return to the Emergency Department if symptoms worsen or any other concerns. Is patient prescribed a controlled substance at d/c from ED?: No Referrals: Ashlee Nguyen NPC [Primary Care Provider] - 1-2 days Time of Disposition: 23:42
[2024-04-11] MEDS: HYDROcodone/APAP 5-325MG 1 EACH TAB PO STA (23:51)
[2024-04-12 00:04] VITALS: BP 133/68; PULSE 71; TEMP 97.9
== END 2024-04-11 23:50 | disposition home or self-care (01) ==
LOC: EC 22:46
DX: G89.29 Other chronic pain (principal); F17.290 Nicotine dependence, other tobacco product, uncomplicated; Z88.8 Allergy status to other drugs, medicaments and biological substances
CPT/HCPCS: 99283

== ENCOUNTER 2024-04-12 15:52 | Emergency (ER) | payer MEDICARE ==
[2024-04-12 15:57] VITALS: TEMP 98.4
--- NOTE | 2024-04-12 16:19 | ED ---
Recheck HPI - General Chief Complaint: Recheck/Abnormal Lab/Rx Stated Complaint: Pain all over Source: patient, RN notes reviewed, old records reviewed Mode of arrival: EMS Limitations: no limitations - History of Present Illness Initial Comments: This is a 53-year-old female to the ER for evaluation. Patient well-known to the emergency department with multiple ER visits in the last few days. Including multiple visits in the last 24 hours. Patient does appear to present for pain medication. Patient complaining of generalized and overall body aches and pains nausea and states that she cannot get into see her family doctor for another couple months. No other complaints no travel no sick contacts no complaints of blood sugar history no fevers MD Complaint: medication refill request -: days(s) Returns Today for: persistent/worsening pain related to initial visit Context: ran out of medication Associated Symptoms: nausea Treatments Prior to Arrival: Given Pain Meds on - Related Data Home Medications Medication Instructions Recorded Confirmed Atorvastatin [Lipitor] 80 mg PO HS 06/25/19 02/17/24 lisinopriL 40 mg PO DAILY 09/24/20 02/17/24 traZODone HCL 50 mg PO HS 01/11/21 02/17/24 INSULIN ASPART (NovoLOG) [NovoLOG 20 unit SQ AC-TID 11/26/22 02/17/24 (formulary)] Albuterol Inhaler [Ventolin Hfa 2 puff INHALATION RT-QID PRN 03/01/23 02/17/24 Inhaler] Insulin Glargine,Hum.rec.anlog 30 units SQ DAILY 07/30/23 02/17/24 [Lantus Solostar Pen] Dulaglutide [Trulicity] 1.5 mg SQ DIRECTED 02/17/24 02/17/24 Ezetimibe [Zetia] 10 mg PO HS 02/17/24 02/17/24 Insulin Aspart (Niacinamide) 8 units SQ DIRECTED 02/17/24 02/17/24 [Fiasp 100 Unit/ml Flextouch Pen] Nystatin 100,000 Unit/gm Powd 1 applic TOPICAL BID PRN 02/17/24 02/17/24 [Mycostatin Powder] Pantoprazole [Protonix] 40 mg PO DAILY 02/17/24 02/17/24 metFORMIN HCL [Glucophage] 500 mg PO BID 02/17/24 02/17/24 Previous Rx's Medication Instructions Recorded amLODIPine [Norvasc] 10 mg PO DAILY #30 tab 03/11/23 hydrALAZINE HCL [Apresoline] 25 mg PO BID #60 tab 03/11/23 Mupirocin 2% Oint [Bactroban 2% 1 applic TOPICAL TID #22 gm 02/17/24 Oint] Ondansetron Odt [Zofran Odt] 4 mg PO Q8HR PRN #10 tab 02/17/24 Sulfamethox-Tmp 800-160Mg [Bactrim 2 tab PO Q12HR #28 tab 02/17/24 DS 800-160 mg] Dicyclomine [Bentyl] 20 mg PO QID #15 tablet 03/15/24 Ondansetron Odt [Zofran Odt] 4 mg PO Q8HR PRN #10 tab 03/29/24 Benzonatate [Tessalon Perles] 100 mg PO TID PRN #9 capsule 04/06/24 Ibuprofen [Motrin] 600 mg PO Q8HR PRN 30 Days #30 tab 04/11/24 Allergies Allergy/AdvReac Type Severity Reaction Status Date / Time levofloxacin [From Levaquin] Allergy Rash/Hives Verified 04/12/24 15:57 Review of Systems ROS Statement: Those systems with pertinent positive or pertinent negative responses have been documented in the HPI. ROS Other: All systems not noted in ROS Statement are negative. Past Medical History Past Medical History: Diabetes Mellitus, GERD/Reflux, Hyperlipidemia, Hyperte nsion, Syncope Additional Past Medical History / Comment(s): Pt recently admitted to [facility] on 07/21/21 with uncontrolled IDDM and hyperkalemia. Other hx: Recurrent pancreatitis, hypertriglyceridemia, elevated lipase, IDDM type II, UTI, chronic low back pain, bulging discs, dental abscesses in past. History of Any Multi-Drug Resistant Organisms: MRSA Date of last positivie culture/infection: 03/01/23 MDRO Source:: Abdomen Past Surgical History: Tubal Ligation Additional Past Surgical History / Comment(s): Age 7 had VSD repair, tumor removal 03/2023 Past Anesthesia/Blood Transfusion Reactions: No Reported Reaction Past Psychological History: No Psychological Hx Reported Smoking Status: Former smoker, Second hand smoke exposure, Vaper Past Alcohol Use History: None Reported Past Drug Use History: None Reported - Past Family History Mother Family Medical History: No Reported History Additional Family Medical History / Comment(s): Mother was healthy. She is , pt cannot recall cause of . Father Family Medical History: Pneumonia Additional Family Medical History / Comment(s): Father at the age of 67yrs from pneumonia General Exam Limitations: no limitations General appearance: alert, in no apparent distress Head exam: Present: atraumatic, normocephalic, normal inspection Eye exam: Present: normal appearance, PERRL, EOMI. Absent: scleral icterus, conjunctival injection, periorbital swelling ENT exam: Present: normal exam, mucous membranes moist Neck exam: Present: normal inspection. Absent: tenderness, meningismus, lymphadenopathy Respiratory exam: Present: normal lung sounds bilaterally. Absent: respiratory distress, wheezes, rales, rhonchi, stridor Cardiovascular Exam: Present: regular rate, normal rhythm, normal heart sounds. Absent: systolic murmur, diastolic murmur, rubs, gallop, clicks GI/Abdominal exam: Present: soft, normal bowel sounds. Absent: distended, tenderness, guarding, rebound, rigid Extremities exam: Present: normal inspection, full ROM, normal capillary refill. Absent: tenderness, pedal edema, joint swelling, calf tenderness Back exam: Present: normal inspection Neurological exam: Present: alert, oriented X3, CN II-XII intact Psychiatric exam: Present: normal affect, normal mood Skin exam: Present: warm, dry, intact, normal color. Absent: rash Course Vital Signs 04/12/24 15:54 Temperature 98.4 F Pulse Rate 71 Respiratory 18 Rate Blood Pressure 165/102 O2 Sat by Pulse 97 Oximetry - Reevaluation(s) Reevaluation #1: 04/12/24 17:01 Medical records reviewed Reevaluation #2: 04/12/24 17:01 Patient symptoms improved Reevaluation #3: 04/12/24 17:02 Patient informed of results and questions answered Reevaluation #4: Was pt. sent in by a medical professional or institution (, PA, ROADMASTER, urgent care, hospital, or detention...) When possible be specific @ -no Did you speak to anyone other than the patient for history (EMS, parent, family, police, friend...)? What history was obtained from this source @ -no Did you review nursing and triage notes (agree or disagree)? Why? @ -agree Are old charts reviewed (outside hosp., previous admission, EMS record, old EKG, old radiological studies, urgent care reports/EKG's, detention records)? Report findings @ -yes Differential Diagnosis (chest pain, altered mental status, abdominal pain women, abdominal pain men, vaginal bleeding, weakness, fever, dyspnea, syncope, headache, dizziness, GI bleed, back pain, seizure, CVA, palpatations, mental health, musculoskeletal)? @ -prior EKG interpreted by me (3pts min.). @ -yes X-rays interpreted by me (1pt min.). @ -yes negative for acute disease CT interpreted by me (1pt min.). @ -no U/S interpreted by me (1pt. min.). @ -no What testing was considered but not performed or refused? (CT, X-rays, U/S, labs)? Why? @ -none What meds were considered but not given or refused? Why? @ -none Did you discuss the management of the patient with other professionals (professionals i.e. , PA, ROADMASTER, lab, RT, psych nurse, elementary school social worker, car pick up driver, teacher, housing management officer, case repairer)? Give summary @ -no Was smoking cessation discussed for >3mins.? @ -no Was critical care preformed (if so, how long)? @ -no Were there social determinants of health that impacted care today? How? (Homelessness, low income, unemployed, alcoholism, drug addiction, transportation, low edu. Level, literacy, decrease access to med. care, fpc, rehab)? @ -none Was there de-escalation of care discussed even if they declined (Discuss DNR or withdrawal of care, Hospice)? DNR status @ -no What co-morbidities impacted this encounter? (DM, HTN, Smoking, COPD, CAD, Ca ncer, CVA, ARF, Chemo, Hep., AIDS, mental health diagnosis, sleep apnea, morbid obesity)? @ -none Was patient admitted / discharged? Hospital course, mention meds given and route, prescriptions, significant lab abnormalities, going to OR and other pertinent info. @ - Undiagnosed new problem with uncertain prognosis? @ -no Drug Therapy requiring intensive monitoring for toxicity (Heparin, Nitro, Insulin, Cardizem)? @ -no Were any procedures done? @ -no Diagnosis/symptom? @ - Acute, or Chronic, or Acute on Chronic? @ -Acute Uncomplicated (without systemic symptoms) or Complicated (systemic symptoms)? @ -Complicated Side effects of treatment? @ -no Exacerbation, Progression, or Severe Exacerbation? @ -exacerbation Poses a threat to life or bodily function? How? (Chest pain, [place], [place], pneumonia, PE, COPD, DKA, ARF, appy, cholecystitis, CVA, Diverticulitis, Homicidal, Suicidal, threat to staff... and all critical care pts) @ -yes Medical Decision Making - Medical Decision Making 53 female with complaints of vulvar pain generalized pain uncontrolled pain chronic, patient has no new complaints and can be discharged Disposition Clinical Impression: Nausea & vomiting, Chronic pain Disposition: HOME SELF-CARE Condition: Fair Instructions (If sedation given, give patient instructions): Chronic Pain (ED) Is patient prescribed a controlled substance at d/c from ED?: No Referrals: Ashlee Nguyen NPC [Primary Care Provider] - 1-2 days Time of Disposition: 17:00
[2024-04-12] MEDS: HYDROmorphone 1 MG/ML 1 ML SYRINGE IM STA (17:06)
[2024-04-12] MEDS: ONDANSETRON 4 MG TAB PO STA (17:07)
[2024-04-12] MEDS: IBUPROFEN 600 MG STARTER PACK 4 TAB BTL PO STA (17:07)
[2024-04-12] MEDS: ONDANSETRON 4 MG ODT STARTER PACK 2 TAB BTL PO STA (17:07)
[2024-04-12] MEDS: ACET/COD 300 MG/30 MG STARTER PACK 6 TAB BTL PO STA (17:07)
[2024-04-12 17:11] VITALS: BP 162/107; PULSE 69; RESP 16
== END 2024-04-12 17:12 | disposition home or self-care (01) ==
LOC: EC 15:52
DX: G89.29 Other chronic pain (principal); R11.2 Nausea with vomiting, unspecified; F17.290 Nicotine dependence, other tobacco product, uncomplicated; Z88.1 Allergy status to other antibiotic agents
CPT/HCPCS: 99283; 96372; J1171; S0119

== ENCOUNTER 2024-04-13 15:16 | Emergency (ER) | payer MEDICARE ==
[2024-04-13 16:14] VITALS: TEMP 98.5
--- NOTE | 2024-04-13 16:19 | ED ---
General Adult HPI - General Source: patient, RN notes reviewed Mode of arrival: EMS Limitations: no limitations <Usha Chand - Last Filed: 04/13/24 16:18> - General Source: patient, RN notes reviewed, old records reviewed Mode of arrival: EMS Limitations: no limitations - History of Present Illness -: days(s) Radiation: non-radiation Consistency: constant Improves with: none Worsens with: none Associated Symptoms: denies other symptoms <Hemanth Tobin - Last Filed: 04/13/24 19:50> - General Chief complaint: Weakness Stated complaint: Weakness Time Seen by Provider: 04/13/24 16:18 - History of Present Illness Initial comments: Quick note: 53-year-old female presents to the emergency department for evaluation of generalized weakness starting today. (Usha Chand) This is a 53-year-old female for recurrent ER visit today. 4 times in the last 24 hours 6 times in the last 3 days. Patient comes in for evaluation of weakness and generalized bodyaches and pains. None of these complaints are new (Hemanth Tobin) - Related Data Home Medications Medication Instructions Recorded Confirmed Atorvastatin [Lipitor] 80 mg PO HS 06/25/19 02/17/24 lisinopriL 40 mg PO DAILY 09/24/20 02/17/24 traZODone HCL 50 mg PO HS 01/11/21 02/17/24 INSULIN ASPART (NovoLOG) [NovoLOG 20 unit SQ AC-TID 11/26/22 02/17/24 (formulary)] Albuterol Inhaler [Ventolin Hfa 2 puff INHALATION RT-QID PRN 03/01/23 02/17/24 Inhaler] Insulin Glargine,Hum.rec.anlog 30 units SQ DAILY 07/30/23 02/17/24 [Lantus Solostar Pen] Dulaglutide [Trulicity] 1.5 mg SQ DIRECTED 02/17/24 02/17/24 Ezetimibe [Zetia] 10 mg PO HS 02/17/24 02/17/24 Insulin Aspart (Niacinamide) 8 units SQ DIRECTED 02/17/24 02/17/24 [Fiasp 100 Unit/ml Flextouch Pen] Nystatin 100,000 Unit/gm Powd 1 applic TOPICAL BID PRN 02/17/24 02/17/24 [Mycostatin Powder] Pantoprazole [Protonix] 40 mg PO DAILY 02/17/24 02/17/24 metFORMIN HCL [Glucophage] 500 mg PO BID 02/17/24 02/17/24 Previous Rx's Medication Instructions Recorded amLODIPine [Norvasc] 10 mg PO DAILY #30 tab 03/11/23 hydrALAZINE HCL [Apresoline] 25 mg PO BID #60 tab 03/11/23 Mupirocin 2% Oint [Bactroban 2% 1 applic TOPICAL TID #22 gm 02/17/24 Oint] Ondansetron Odt [Zofran Odt] 4 mg PO Q8HR PRN #10 tab 02/17/24 Sulfamethox-Tmp 800-160Mg [Bactrim 2 tab PO Q12HR #28 tab 02/17/24 DS 800-160 mg] Dicyclomine [Bentyl] 20 mg PO QID #15 tablet 03/15/24 Ondansetron Odt [Zofran Odt] 4 mg PO Q8HR PRN #10 tab 03/29/24 Benzonatate [Tessalon Perles] 100 mg PO TID PRN #9 capsule 04/06/24 Ibuprofen [Motrin] 600 mg PO Q8HR PRN 30 Days #30 tab 04/11/24 Allergies Allergy/AdvReac Type Severity Reaction Status Date / Time levofloxacin [From Levaquin] Allergy Rash/Hives Verified 04/13/24 16:14 Review of Systems ROS Other: All systems not noted in ROS Statement are negative. <Usha Chand - Last Filed: 04/13/24 16:18> ROS Other: All systems not noted in ROS Statement are negative. <Hemanth Tobin - Last Filed: 04/13/24 19:50> ROS Statement: Those systems with pertinent positive or pertinent negative responses have been documented in the HPI. Past Medical History Past Medical History: Diabetes Mellitus, GERD/Reflux, Hyperlipidemia, Hypertension, Syncope Additional Past Medical History / Comment(s): Pt recently admitted to [facility] on 07/21/21 with uncontrolled IDDM and hyperkalemia. Other hx: Recurrent pa ncreatitis, hypertriglyceridemia, elevated lipase, IDDM type II, UTI, chronic low back pain, bulging discs, dental abscesses in past. 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 She is , pt cannot recall cause of . Father Family Medical History: Pneumonia Additional Family Medical History / Comment(s): Father at the age of 67yrs from pneumonia <Usha Chand - Last Filed: 04/13/24 16:18> General Exam Limitations: no limitations <Uhsa Chand - Last Filed: 04/13/24 16:18> General appearance: alert, in no apparent distress Head exam: Present: atraumatic, normocephalic, normal inspection Eye exam: Present: normal appearance, PERRL, EOMI. Absent: scleral icterus, conjunctival injection, periorbital swelling ENT exam: Present: normal exam, mucous membranes moist Neck exam: Present: normal inspection. Absent: tenderness, meningismus, lymphadenopathy Respiratory exam: Present: normal lung sounds bilaterally. Absent: respiratory distress, wheezes, rales, rhonchi, stridor Cardiovascular Exam: Present: regular rate, normal rhythm, normal heart sounds. Absent: systolic murmur, diastolic murmur, rubs, gallop, clicks GI/Abdominal exam: Present: soft, normal bowel sounds. Absent: distended, tenderness, guarding, rebound, rigid Extremities exam: Present: normal inspection, full ROM, normal capillary refill. Absent: tenderness, pedal edema, joint swelling, calf tenderness Back exam: Present: normal inspection Neurological exam: Present: alert, oriented X3, CN II-XII intact Psychiatric exam: Present: normal affect, normal mood Skin exam: Present: warm, dry, intact, normal color. Absent: rash <Hemanth Tobin - Last Filed: 04/13/24 19:50> - General Exam Comments Initial Comments: Visual Physical Exam Vital signs reviewed General: Well-appearing, nontoxic, no acute distress. Head: Normocephalic, atraumatic Eyes: PERRLA, EOMI ENT: Airway patent Chest: Nonlabored breathing Skin: No visual rash, normal skin tone Neuro: Alert and oriented 3 Musculoskeletal: No gross abnormalities (Usha Chand) Course <Hemanth Tobin - Last Filed: 04/13/24 19:50> Vital Signs 04/13/24 16:12 Temperature 98.5 F Pulse Rate 70 Respiratory 22 Rate Blood Pressure 106/73 O2 Sat by Pulse 96 Oximetry - Reevaluation(s) Reevaluation #1: 04/13/24 19:49 Medical records reviewed (Hemanth Tobin) Reevaluation #2: 04/13/24 19:49 Patient symptoms unchanged (Hemanth Tobin) Reevaluation #3: 04/13/24 19:49 Patient informed of results questions answered (Hemanth Tobin) Reevaluation #4: 04/13/24 19:49 Was pt. sent in by a medical professional or institution (, PA, VIDEO SOFTWARE ENGINEER, urgent care, hospital, or detention...) When possible be specific @ -no Did you speak to anyone other than the patient for history (EMS, parent, family, police, friend...)? What history was obtained from this source @ -no Did you review nursing and triage notes (agree or disagree)? Why? @ -agree Are old charts reviewed (outside hosp., previous admission, EMS record, old EKG, old radiological studies, urgent care reports/EKG's, detention records)? Report findings @ -yes Differential Diagnosis (chest pain, altered mental status, abdominal pain women, abdominal pain men, vaginal bleeding, weakness, fever, dyspnea, syncope, headache, dizziness, GI bleed, back pain, seizure, CVA, palpatations, mental health, musculoskeletal)? @ -prior EKG interpreted by me (3pts min.). @ -yes X-rays interpreted by me (1pt min.). @ -yes negative for acute disease CT interpreted by me (1pt min.). @ -no U/S interpreted by me (1pt. min.). @ -no What testing was considered but not performed or refused? (CT, X-rays, U/S, labs)? Why? @ -none What meds were considered but not given or refused? Why? @ -none Did you discuss the management of the patient with other professionals (professionals i.e. , PA, VIDEO SOFTWARE ENGINEER, lab, RT, psych nurse, social work coordinator, gas welding equipment mechanic, teacher, operational intelligence officer, manager of case management)? Give summary @ -no Was smoking cessation discussed for >3mins.? @ -no Was critical care preformed (if so, how long)? @ -no Were there social determinants of health that impacted care today? How? (Homelessness, low income, unemployed, alcoholism, drug addiction, transportation, low edu. Level, literacy, decrease access to med. care, fdc, rehab)? @ -none Was there de-escalation of care discussed even if they declined (Discuss DNR or withdrawal of care, Hospice)? DNR status @ -no What co-morbidities impacted this encounter? (DM, HTN, Smoking, COPD, CAD, Cancer, CVA, ARF, Chemo, Hep., AIDS, mental health diagnosis, sleep apnea, morbid obesity)? @ -none Was patient admitted / discharged? Hospital course, mention meds given and route, prescriptions, significant lab abnormalities, going to OR and other pertinent info. @ - Undiagnosed new problem with uncertain prognosis? @ -no Drug Therapy requiring intensive monitoring for toxicity (Heparin, Nitro, Insulin, Cardizem)? @ -no Were any procedures done? @ -no Diagnosis/symptom? @ - Acute, or Chronic, or Acute on Chronic? @ -Acute Uncomplicated (without systemic symptoms) or Complicated (systemic symptoms)? @ -Complicated Side effects of treatment? @ -no Exacerbation, Progression, or Severe Exacerbation? @ -exacerbation Poses a threat to life or bodily function? How? (Chest pain, [place], [place], pneumonia, PE, COPD, DKA, ARF, appy, cholecystitis, CVA, Diverticulitis, Homicidal, Suicidal, threat to staff... and all critical care pts) @ -yes (Hemanth Tobin) Reevaluation #5: Differential Weakness: Hypoglycemia, shock, sepsis, hyponatremia, anemia, infection, ME, ETOH, adverse medicine reaction, overdose, stroke, this is not meant to be an all-inclusive list. (Hemanth Tobin) Medical Decision Making <Usha Chand - Last Filed: 04/13/24 16:18> - Lab Data Result diagrams: 04/13/24 16:56 04/13/24 19:16 <Hemanth Tobin - Last Filed: 04/13/24 19:50> - Medical Decision Making Quick note preformed and electronically signed by Usha Chand PA-C (Usha Chand) 53 female with chronic complaints. Patient has no acute findings can be discharged home (Hemanth Tobin) - Lab Data Lab Results 04/13/24 04/13/24 04/13/24 Range/Units 16:56 16:56 19:16 WBC 11.2 H (3.8-10.6) k/uL RBC 5.07 (3.80-5.40) m/uL Hgb 13.9 (11.4-16.0) gm/dL Hct 42.1 (34.0-46.0) % MCV 82.9 (80.0-100.0) fL MCH 27.4 (25.0-35.0) pg MCHC 33.1 (31.0-37.0) g/dL RDW 16.4 H (11.5-15.5) % Plt Count 636 H (150-450) k/uL MPV 7.3 Neutrophils % 59 % Lymphocytes % 32 % Monocytes % 5 % Eosinophils % 3 % Basophils % 0 % Neutrophils # 6.6 (1.3-7.7) k/uL Lymphocytes # 3.6 (1.0-4.8) k/uL Monocytes # 0.5 (0-1.0) k/uL Eosinophils # 0.3 (0-0.7) k/uL Basophils # 0.1 (0-0.2) k/uL Anisocytosis Slight Microcytosis Slight Sodium 136 L (137-145) mmol/L Potassium 4.5 (3.5-5.1) mmol/L Chloride 103 (98-107) mmol/L Carbon Dioxide 23 (22-30) mmol/L Anion Gap 10 mmol/L BUN 13 (7-17) mg/dL Creatinine 0.90 (0.52-1.04) mg/dL Est GFR (CKD-EPI)AfAm 86 (>60 ml/min/1.73 sqM) Est GFR (CKD-EPI)NonAf 75 (>60 ml/min/1.73 sqM) Glucose 142 H (74-99) mg/dL Calcium 9.3 (8.4-10.2) mg/dL Phosphorus 5.2 H (2.5-4.5) mg/dL Magnesium 1.5 L (1.6-2.3) mg/dL Total Bilirubin 0.5 (0.2-1.3) mg/dL AST 42 H (14-36) U/L ALT 27 (4-34) U/L Alkaline Phosphatase 121 (38-126) U/L Troponin I <0.012 (0.000-0.034) ng/mL Total Protein 6.7 (6.3-8.2) g/dL Albumin 3.8 (3.5-5.0) g/dL Disposition <Usha Chand - Last Filed: 04/13/24 16:18> Is patient prescribed a controlled substance at d/c from ED?: No Time of Disposition: 19:30 <Hemanth Tobin - Last Filed: 04/13/24 19:50> Clinical Impression: Weakness Disposition: HOME SELF-CARE Condition: Good Instructions (If sedation given, give patient instructions): Weakness (ED) Referrals: Ronel Manzano MD [Primary Care Provider] - 1-2 days
[2024-04-13 17:08] LABS: Anisocytosis Slight; Basophils # (A) 0.1 k/uL (0-0.2); Basophils % (A) 0 %; Eosinophils # (A) 0.3 k/uL (0-0.7); Eosinophils % (A) 3 %; HCT 42.1 % (34.0-46.0); HGB 13.9 gm/dL (11.4-16.0); Lymphocytes # (A) 3.6 k/uL (1.0-4.8); Lymphocytes % (A) 32 %; MCH 27.4 pg (25.0-35.0); MCHC 33.1 g/dL (31.0-37.0); MCV 82.9 fL (80.0-100.0); Mean Platelet Volume 7.3; Microcytosis Slight; Monocytes # (A) 0.5 k/uL (0-1.0); Monocytes % (A) 5 %; Neutrophils # (A) 6.6 k/uL (1.3-7.7); Neutrophils % (A) 59 %; Platelet Count 636 k/uL (150-450); RBC 5.07 m/uL (3.80-5.40); RDW 16.4 % (11.5-15.5); WBC 11.2 k/uL (3.8-10.6)
[2024-04-13] MEDS: ONDANSETRON 4 MG/2 ML VIAL IVP STA (19:17)
[2024-04-13] MEDS: SODIUM CHLORIDE 0.9% 1,000 ML IV STA (19:17)
[2024-04-13] MEDS: MORPHINE SULFATE 4 MG/ML SYRINGE IV STA (19:17)
[2024-04-13 19:45] LABS: ALT 27 U/L (4-34); AST 42 U/L (14-36); African American GFR (CKD) 86 (>60 ml/min/1.73 sqM); Albumin 3.8 g/dL (3.5-5.0); Alkaline Phosphatase 121 U/L (38-126); Anion Gap 10 mmol/L; Blood Urea Nitrogen 13 mg/dL (7-17); Calcium 9.3 mg/dL (8.4-10.2); Carbon Dioxide 23 mmol/L (22-30); Chloride 103 mmol/L (98-107); Glucose 142 mg/dL (74-99); Magnesium 1.5 mg/dL (1.6-2.3); Non-African American GFR(CKD) 75 (>60 ml/min/1.73 sqM); Phosphorus 5.2 mg/dL (2.5-4.5); Potassium 4.5 mmol/L (3.5-5.1); Sodium 136 mmol/L (137-145); Total Bilirubin 0.5 mg/dL (0.2-1.3); Total Protein 6.7 g/dL (6.3-8.2)
[2024-04-13] MEDS: MAGNESIUM OXIDE 400 MG TAB PO STA ×2 (19:58)
[2024-04-13 20:05] VITALS: BP 144/85; PULSE 69; RESP 16
== END 2024-04-13 20:05 | disposition home or self-care (01) ==
LOC: EC 15:16
DX: R53.1 Weakness (principal); F17.290 Nicotine dependence, other tobacco product, uncomplicated; Z88.8 Allergy status to other drugs, medicaments and biological substances
CPT/HCPCS: 36415; 93005; 80053; 82009; 83735; 84100; 84443; 84484; 85025; 99284; 96374; 96375; 96361; J2270; J2405

== ENCOUNTER 2024-04-15 22:40 | Emergency (ER) | payer MEDICARE ==
--- NOTE | 2024-04-15 22:46 | ED ---
General Adult HPI - General Stated complaint: Pain Time Seen by Provider: 04/15/24 22:40 Source: patient, EMS, RN notes reviewed Mode of arrival: EMS Limitations: no limitations - History of Present Illness Initial comments: 53-year-old female presents emergency department with chief complaint of chronic pain. Patient has pain diffusely in her joints. This is an ongoing issue she has been emergency department multiple times with some complaints she is not seen her PCP recently for pain control. She denies any new symptoms no fever chills no chest pain or shortness of breath. - Related Data Home Medications Medication Instructions Recorded Confirmed Atorvastatin [Lipitor] 80 mg PO HS 06/25/19 02/17/24 lisinopriL 40 mg PO DAILY 09/24/20 02/17/24 traZODone HCL 50 mg PO HS 01/11/21 02/17/24 INSULIN ASPART (NovoLOG) [NovoLOG 20 unit SQ AC-TID 11/26/22 02/17/24 (formulary)] Albuterol Inhaler [Ventolin Hfa 2 puff INHALATION RT-QID PRN 03/01/23 02/17/24 Inhaler] Insulin Glargine,Hum.rec.anlog 30 units SQ DAILY 07/30/23 02/17/24 [Lantus Solostar Pen] Dulaglutide [Trulicity] 1.5 mg SQ DIRECTED 02/17/24 02/17/24 Ezetimibe [Zetia] 10 mg PO HS 02/17/24 02/17/24 Insulin Aspart (Niacinamide) 8 units SQ DIRECTED 02/17/24 02/17/24 [Fiasp 100 Unit/ml Flextouch Pen] Nystatin 100,000 Unit/gm Powd 1 applic TOPICAL BID PRN 02/17/24 02/17/24 [Mycostatin Powder] Pantoprazole [Protonix] 40 mg PO DAILY 02/17/24 02/17/24 metFORMIN HCL [Glucophage] 500 mg PO BID 02/17/24 02/17/24 Previous Rx's Medication Instructions Recorded amLODIPine [Norvasc] 10 mg PO DAILY #30 tab 03/11/23 hydrALAZINE HCL [Apresoline] 25 mg PO BID #60 tab 03/11/23 Mupirocin 2% Oint [Bactroban 2% 1 applic TOPICAL TID #22 gm 02/17/24 Oint] Ondansetron Odt [Zofran Odt] 4 mg PO Q8HR PRN #10 tab 02/17/24 Sulfamethox-Tmp 800-160Mg [Bactrim 2 tab PO Q12HR #28 tab 02/17/24 DS 800-160 mg] Dicyclomine [Bentyl] 20 mg PO QID #15 tablet 03/15/24 Ondansetron Odt [Zofran Odt] 4 mg PO Q8HR PRN #10 tab 03/29/24 Benzonatate [Tessalon Perles] 100 mg PO TID PRN #9 capsule 04/06/24 Ibuprofen [Motrin] 600 mg PO Q8HR PRN 30 Days #30 tab 04/11/24 Allergies Allergy/AdvReac Type Severity Reaction Status Date / Time levofloxacin [From Levaquin] Allergy Rash/Hives Verified 04/13/24 16:14 Review of Systems ROS Statement: Those systems with pertinent positive or pertinent negative responses have been documented in the HPI. ROS Other: All systems not noted in ROS Statement are negative. Past Medical History Past Medical History: Diabetes Mellitus, GERD/Reflux, Hyperlipidemia, Hypertension, Syncope Additional Past Medical History / Comment(s): Pt recently admitted to [facility] on 07/21/21 with uncontrolled IDDM and hyperkalemia. Other hx: Recurrent pancreatitis, hypertriglyceridemia, elevated lipase, IDDM type II, UTI, chronic low back pain, bulging discs, dental abscesses in past. History of Any Multi-Drug Resistant Organisms: MRSA Date of last positivie culture/infection: 03/01/23 MDRO Source:: Abdomen Past Surgical History: Tubal Ligation Additional Past Surgical History / Comment(s): Age 7 had VSD repair, tumor removal 03/2023 Past Anesthesia/Blood Transfusion Reactions: No Reported Reaction Past Psychological History: No Psychological Hx Reported Smoking Status: Former smoker, Second hand smoke exposure, Vaper Past Alcohol Use History: None Reported Past Drug Use History: None Reported - Past Family History Mother Family Medical History: No Reported History Additional Family Medical History / Comment(s): Mother was healthy. She is , pt cannot recall cause of . Father Family Medical History: Pneumonia Additional Family Medical History / Comment(s): Father at the age of 67yrs from pneumonia General Exam Limitations: no limitations General appearance: alert, in no apparent distress Head exam: Present: atraumatic, normocephalic, normal inspection Eye exam: Present: normal appearance, PERRL, EOMI. Absent: scleral icterus, conjunctival injection, periorbital swelling ENT exam: Present: normal exam, mucous membranes moist Neck exam: Present: normal inspection, full ROM. Absent: tenderness, meningismus, lymphadenopathy Respiratory exam: Present: normal lung sounds bilaterally. Absent: respiratory distress, wheezes, rales, rhonchi, stridor Cardiovascular Exam: Present: regular rate, normal rhythm, normal heart sounds. Absent: systolic murmur, diastolic murmur, rubs, gallop, clicks Medical Decision Making - Medical Decision Making Was pt. sent in by a medical professional or institution (ROSALIE Flaherty, ADOPTION SERVICES MANAGER, urgent care, hospital, or fci...) When possible be specific @ -No Did you speak to anyone other than the patient for history (EMS, parent, family, police, friend...)? What history was obtained from this source @ -No Did you review nursing and triage notes (agree or disagree)? Why? @ -I reviewed and agree with nursing and triage notes Were old charts reviewed (outside hosp., previous admission, EMS record, old EKG, old radiological studies, urgent care reports/EKG's, fci records)? Report findings @ -No old charts were reviewed Differential Diagnosis (chest pain, altered mental status, abdominal pain women, abdominal pain men, vaginal bleeding, weakness, fever, dyspnea, syncope, headache, dizziness, GI bleed, back pain, seizure, CVA, palpatations, mental health, musculoskeletal)? @ -Osteoarthritis, chronic pain, joint pain, EKG interpreted by me (3pts min.). @ -None X-rays interpreted by me (1pt min.). @ -None done CT interpreted by me (1pt min.). @ -None done U/S interpreted by me (1pt. min.). @ -None done What testing was considered but not performed or refused? (CT, X-rays, U/S, labs)? Why? @ -None What meds were considered but not given or refused? Why? @ -None Did you discuss the management of the patient with other professionals (professionals i.e. Dr., PA, ADOPTION SERVICES MANAGER, lab, RT, psych nurse, group social worker, paraprofessional interpreter, teacher, chief digital media officer, continuous pillowcase cutter)? Give summary @ -No Was smoking cessation discussed for >3mins.? @ -No Was critical care preformed (if so, how long)? @ -No Were there social determinants of health that impacted care today? How? (Homelessness, low income, unemployed, alcoholism, drug addiction, transportation, low edu. Level, literacy, decrease access to med. care, alf, rehab)? @ -No Was there de-escalation of care discussed even if they declined (Discuss DNR or withdrawal of care, Hospice)? DNR status @ -No What co-morbidities impacted this encounter? (DM, HTN, Smoking, COPD, CAD, Cancer, CVA, ARF, Chemo, Hep., AIDS, mental health diagnosis, sleep apnea, morbid obesity)? @ -None Was patient admitted / discharged? Hospital course, mention meds given and route, prescriptions, significant lab abnormalities, going to OR and other pertinent info. @ -Charge patient advised that she needs to follow-up outpatient for chronic pain and is not to be treated emergency department. She has no new symptoms patient is discharged in stable condition return parameters liza. Undiagnosed new problem with uncertain prognosis? @ -No Drug Therapy requiring intensive monitoring for toxicity (Heparin, Nitro, Insulin, Cardizem)? @ -No Were any procedures done? @ -No Diagnosis/symptom? @ -Pain, chronic Acute, or Chronic, or Acute on Chronic? @ -Chronic Uncomplicated (without systemic symptoms) or Complicated (systemic symptoms)? @ -uncomplicated Side effects of treatment? @ -No Exacerbation, Progression, or Severe Exacerbation? @ -No Poses a threat to life or bodily function? How? (Chest pain, [place], [place], pneumonia, PE, COPD, DKA, ARF, appy, cholecystitis, CVA, Diverticulitis, Homicidal, Suicidal, threat to staff... and all critical care pts) @ -No Disposition Clinical Impression: Chronic pain Disposition: HOME SELF-CARE Condition: Stable Additional Instructions: Please follow-up with PCP and pain management for treatment of your chronic pain. Please return to the Emergency Department if symptoms worsen or any other concerns. Is patient prescribed a controlled substance at d/c from ED?: No Referrals: Ronel Manzano MD [Primary Care Provider] - 1-2 days Time of Disposition: 22:46
[2024-04-15 22:56] VITALS: BP 188/82; PULSE 63; RESP 18; TEMP 98.1
[2024-04-15] MEDS: KETOROLAC 15 MG/ML 1 ML VIAL IM STA (23:07)
== END 2024-04-15 23:18 | disposition home or self-care (01) ==
LOC: EC 22:40
DX: G89.29 Other chronic pain (principal); F17.290 Nicotine dependence, other tobacco product, uncomplicated; Z88.1 Allergy status to other antibiotic agents
CPT/HCPCS: 99283; 96372; J1885

== ENCOUNTER 2024-04-17 17:02 | Emergency (ER) | payer MEDICARE ==
--- NOTE | 2024-04-17 17:27 | ED ---
Abdominal Pain HPI - General Source: patient, RN notes reviewed Mode of arrival: EMS Limitations: no limitations - History of Present Illness MD Complaint: abdominal pain <Teo Mcgraw - Last Filed: 04/17/24 17:25> - General Source: patient, RN notes reviewed <Lo Clemons - Last Filed: 04/17/24 19:54> - General Stated Complaint: stomach pain Time Seen by Provider: 04/17/24 17:16 - History of Present Illness Initial Comments: Quick note: This is a well-known 53-year-old female with history of DM presenting via EMS for constant, sudden onset lower abdominal pain starting last night. Patient states pain radiates to her lower back. Endorses use of Tylenol/Advil with minimal relief. Denies other symptoms. (Teo Mcgraw) 53-year-old female well-known to ER presenting to the ER chief complaint of abdominal pain x 1 day with associated diarrhea. Pain is located in the lower abdomen and radiates to the back. Pain is worse with movement and with bowel movements. Denies vomiting or blood in stool. Denies trauma or injury. History of tubal ligation, denies any other abdominal surgeries. States she checked her blood blood glucose at lunch and was 250. States this is normal for her. (Lo Clemons) - Related Data Home Medications Medication Instructions Recorded Confirmed Atorvastatin [Lipitor] 80 mg PO HS 06/25/19 02/17/24 lisinopriL 40 mg PO DAILY 09/24/20 02/17/24 traZODone HCL 50 mg PO HS 01/11/21 02/17/24 INSULIN ASPART (NovoLOG) [NovoLOG 20 unit SQ AC-TID 11/26/22 02/17/24 (formulary)] Albuterol Inhaler [Ventolin Hfa 2 puff INHALATION RT-QID PRN 03/01/23 02/17/24 Inhaler] Insulin Glargine,Hum.rec.anlog 30 units SQ DAILY 07/30/23 02/17/24 [Lantus Solostar Pen] Dulaglutide [Trulicity] 1.5 mg SQ DIRECTED 02/17/24 02/17/24 Ezetimibe [Zetia] 10 mg PO HS 02/17/24 02/17/24 Insulin Aspart (Niacinamide) 8 units SQ DIRECTED 02/17/24 02/17/24 [Fiasp 100 Unit/ml Flextouch Pen] Nystatin 100,000 Unit/gm Powd 1 applic TOPICAL BID PRN 02/17/24 02/17/24 [Mycostatin Powder] Pantoprazole [Protonix] 40 mg PO DAILY 02/17/24 02/17/24 metFORMIN HCL [Glucophage] 500 mg PO BID 02/17/24 02/17/24 Previous Rx's Medication Instructions Recorded amLODIPine [Norvasc] 10 mg PO DAILY #30 tab 03/11/23 hydrALAZINE HCL [Apresoline] 25 mg PO BID #60 tab 03/11/23 Mupirocin 2% Oint [Bactroban 2% 1 applic TOPICAL TID #22 gm 02/17/24 Oint] Ondansetron Odt [Zofran Odt] 4 mg PO Q8HR PRN #10 tab 02/17/24 Sulfamethox-Tmp 800-160Mg [Bactrim 2 tab PO Q12HR #28 tab 02/17/24 DS 800-160 mg] Dicyclomine [Bentyl] 20 mg PO QID #15 tablet 03/15/24 Ondansetron Odt [Zofran Odt] 4 mg PO Q8HR PRN #10 tab 03/29/24 Benzonatate [Tessalon Perles] 100 mg PO TID PRN #9 capsule 04/06/24 Ibuprofen [Motrin] 600 mg PO Q8HR PRN 30 Days #30 tab 04/11/24 Allergies Allergy/AdvReac Type Severity Reaction Status Date / Time levofloxacin [From Levaquin] Allergy Rash/Hives Verified 04/17/24 17:56 Review of Systems ROS Other: All systems not noted in ROS Statement are negative. <Teo Mcgraw - Last Filed: 04/17/24 17:25> ROS Other: All systems not noted in ROS Statement are negative. <Lo Clemons - Last Filed: 04/17/24 19:54> ROS Statement: Those systems with pertinent positive or pertinent negative responses have been documented in the HPI. Past Medical History Past Medical History: Diabetes Mellitus, GERD/Reflux, Hyperlipidemia, Hypertension, Syncope Additional Past Medical History / Comment(s): Pt recently admitted to [facility] on 07/21/21 with uncontrolled IDDM and hyperkalemia. Other hx: Recurrent pancreatitis, hypertriglyceridemia, elevated lipase, IDDM type II, UTI, chronic low back pain, bulging discs, dental abscesses in past. History of Any Multi-Drug Resistant Organisms: MRSA Date of last positivie culture/infection: 03/01/23 MDRO Source:: Abdomen Past Surgical History: Tubal Ligation Additional Past Surgical History / Comment(s): Age 7 had VSD repair, tumor removal 03/2023 Past Anesthesia/Blood Transfusion Reactions: No Reported Reaction Past Psychological History: No Psychological Hx Reported Smoking Status: Former smoker, Second hand smoke exposure, Vaper Past Alcohol Use History: None Reported Past Drug Use History: None Reported - Past Family History Mother Family Medical History: No Reported History Additional Family Medical History / Comment(s): Mother was healthy. She is , pt cannot recall cause of . Father Family Medical History: Pneumonia Additional Family Medical History / Comment(s): Father at the age of 67yrs from pneumonia <Teo Mcgraw - Last Filed: 04/17/24 17:25> General Exam <Teo Mcgraw - Last Filed: 04/17/24 17:25> General appearance: alert, in no apparent distress Head exam: Present: atraumatic, normocephalic, normal inspection Eye exam: Present: normal appearance, PERRL, EOMI. Absent: scleral icterus, conjunctival injection, periorbital swelling Respiratory exam: Present: normal lung sounds bilaterally. Absent: respiratory distress, wheezes, rales, rhonchi, stridor Cardiovascular Exam: Present: regular rate, normal rhythm, normal heart sounds. Absent: systolic murmur, diastolic murmur, rubs, gallop, clicks GI/Abdominal exam: Present: soft, normal bowel sounds. Absent: distended, tenderness, guarding, rebound, rigid Back exam: Absent: CVA tenderness (R), CVA tenderness (L) Neurological exam: Present: alert, oriented X3 Psychiatric exam: Present: normal affect, normal mood Skin exam: Present: warm, dry, intact, normal color. Absent: rash <Lo Clemons - Last Filed: 04/17/24 19:54> - General Exam Comments Initial Comments: Visual Physical Exam Vital signs reviewed General: Well-appearing, nontoxic, no acute distress. Head: Normocephalic, atraumatic Eyes: PERRLA, EOMI ENT: Airway patent Chest: Nonlabored breathing Skin: No visual rash, normal skin tone Neuro: Alert and oriented 3 Musculoskeletal: No gross abnormalities (Teo Mcgraw) Course Vital Signs 04/17/24 17:56 Temperature 99.2 F Pulse Rate 70 Respiratory 18 Rate Blood Pressure 149/88 O2 Sat by Pulse 97 Oximetry Medical Decision Making <Teo Mcgraw - Last Filed: 04/17/24 17:25> - Lab Data Result diagrams: 04/17/24 18:35 04/17/24 18:35 <Lo Clemons - Last Filed: 04/17/24 19:54> - Medical Decision Making I completed the quick note portion of this chart signed DOTTY Peraza (Teo Mcgraw) Was pt. sent in by a medical professional or institution (ROSALIE Flaherty, SHAKER SCREEN OPERATOR, urgent care, hospital, or correction...) When possible be specific @ -No Did you speak to anyone other than the patient for history (EMS, parent, family, police, friend...)? What history was obtained from this source @ -No Did you review nursing and triage notes (agree or disagree)? Why? @ -I reviewed and agree with nursing and triage notes Were old charts reviewed (outside hosp., previous admission, EMS record, old EKG, old radiological studies, urgent care reports/EKG's, correction records)? Report findings @ -No old charts were reviewed Differential Diagnosis (chest pain, altered mental status, abdominal pain women, abdominal pain men, vaginal bleeding, weakness, fever, dyspnea, syncope, headache, dizziness, GI bleed, back pain, seizure, CVA, palpatations, mental health, musculoskeletal)? @ -Differential Abdominal Pain Women: Appendicitis, Cholecystitis, diverticulosis, ischemic bowel, pancreatitis, hepatitis, UTI, gastroenteritis, AAA, incarcerated hernia, bowel obstruction, constipation, inflammatory bowel, hepatitis, peptic ulcer disease, splenic infarction, perforated viscus, vulvitis, ovarian torsion, PID, kidney stone, placenta abruption, this is not meant to be an all-inclusive list EKG interpreted by me (3pts min.). @ -None X-rays interpreted by me (1pt min.). @ -None done CT interpreted by me (1pt min.). @ -None done U/S interpreted by me (1pt. min.). @ -None done What testing was considered but not performed or refused? (CT, X-rays, U/S, labs)? Why? @ -None What meds were considered but not given or refused? Why? @ -None Did you discuss the management of the patient with other professionals (ly baeza i.e. , PA, SHAKER SCREEN OPERATOR, lab, RT, psych nurse, renal social worker, calliope player, teacher, loan officer, case preparer and liner)? Give summary @ -No Was smoking cessation discussed for >3mins.? @ -No Was critical care preformed (if so, how long)? @ -No Were there social determinants of health that impacted care today? How? (Homelessness, low income, unemployed, alcoholism, drug addiction, transportation, low edu. Level, literacy, decrease access to med. care, penitentiary, rehab)? @ -No Was there de-escalation of care discussed even if they declined (Discuss DNR or withdrawal of care, Hospice)? DNR status @ -No What co-morbidities impacted this encounter? (DM, HTN, Smoking, COPD, CAD, Cancer, CVA, ARF, Chemo, Hep., AIDS, mental health diagnosis, sleep apnea, morbid obesity)? @ -None Was patient admitted / discharged? Hospital course, mention meds given and route, prescriptions, significant lab abnormalities, going to OR and other pertinent info. @ - Discharge. 53-year-old female well-known to the ER presenting for lower abdominal pain x 1 day with associated diarrhea. Vital signs within acceptable limits. Abdomen is soft and nontender. Provided with IV fluids and analgesics. Blood glucose 300, lactic 4.0. Patient has known uncontrolled diabetes. White blood cell count stable, anion gap normal, no ketones in urinalysis. Patient does not appear to be in DKA at this time. Patient was provided with 10 units IV insulin. Hyperglycemia and gastroenteritis discussed with patient. Appropriate return precautions and follow-up care discussed. Case was discussed with my ED attending Dr. Huynh Undiagnosed new problem with uncertain prognosis? @ -No Drug Therapy requiring intensive monitoring for toxicity (Heparin, Nitro, Insulin, Cardizem)? @ -No Were any procedures done? @ -No Diagnosis/symptom? @ -Hyperglycemia, gastroenteritis Acute, or Chronic, or Acute on Chronic? @ -Acute Uncomplicated (without systemic symptoms) or Complicated (systemic symptoms)? @ -Uncomplicated Side effects of treatment? @ -No Exacerbation, Progression, or Severe Exacerbation? @ -No Poses a threat to life or bodily function? How? (Chest pain, [place], [place], pneumonia, PE, COPD, DKA, ARF, appy, cholecystitis, CVA, Diverticulitis, Homicidal, Suicidal, threat to staff... and all critical care pts) @ -Not at this time (Lo Clemons) - Lab Data Lab Results 04/17/24 04/17/24 04/17/24 Range/Units 18:35 18:35 18:35 WBC 8.9 (3.8-10.6) k/uL RBC 4.64 (3.80-5.40) m/uL Hgb 12.6 (11.4-16.0) gm/dL Hct 38.6 (34.0-46.0) % MCV 83.2 (80.0-100.0) fL MCH 27.0 (25.0-35.0) pg MCHC 32.5 (31.0-37.0) g/dL RDW 16.2 H (11.5-15.5) % Plt Count 479 H (150-450) k/uL MPV 6.7 Neutrophils % 59 % Lymphocytes % 32 % Monocytes % 4 % Eosinophils % 3 % Basophils % 0 % Neutrophils # 5.3 (1.3-7.7) k/uL Lymphocytes # 2.9 (1.0-4.8) k/uL Monocytes # 0.3 (0-1.0) k/uL Eosinophils # 0.2 (0-0.7) k/uL Basophils # 0.0 (0-0.2) k/uL Anisocytosis Slight Microcytosis Slight Sodium 135 L (137-145) mmol/L Potassium 3.9 (3.5-5.1) mmol/L Chloride 101 (98-107) mmol/L Carbon Dioxide 23 (22-30) mmol/L Anion Gap 11 mmol/L BUN 7 (7-17) mg/dL Creatinine 0.59 (0.52-1.04) mg/dL Est GFR (CKD-EPI)AfAm >90 (>60 ml/min/1.73 sqM) Est GFR (CKD-EPI)NonAf >90 (>60 ml/min/1.73 sqM) Glucose 300 H (74-99) mg/dL Plasma Lactic Acid Travon 4.0 H* (0.7-2.0) mmol/L Calcium 8.5 (8.4-10.2) mg/dL Total Bilirubin 0.2 (0.2-1.3) mg/dL AST 21 (14-36) U/L ALT 18 (4-34) U/L Alkaline Phosphatase 111 (38-126) U/L Total Protein 6.3 (6.3-8.2) g/dL Albumin 3.5 (3.5-5.0) g/dL Amylase 41 (30-110) U/L Lipase 118 (23-300) U/L Urine Color Urine Appearance (Clear) Urine pH (5.0-8.0) Ur Specific [place] (1.001-1.035) Urine Protein (Negative) Urine Glucose (UA) (Negative) Urine Ketones (Negative) Urine Blood (Negative) Urine Nitrite (Negative) Urine Bilirubin (Negative) Urine Urobilinogen (<2.0) mg/dL Ur Leukocyte Esterase (Negative) Urine RBC (0-5) /hpf Urine WBC (0-5) /hpf Ur Squamous Epith Cells (0-4) /hpf Hyaline Casts (0-2) /lpf Urine Mucus (None) /hpf 04/17/24 Range/Units 18:45 WBC (3.8-10.6) k/uL RBC (3.80-5.40) m/uL Hgb (11.4-16.0) gm/dL Hct (34.0-46.0) % MCV (80.0-100.0) fL MCH (25.0-35.0) pg MCHC (31.0-37.0) g/dL RDW (11.5-15.5) % Plt Count (150-450) k/uL MPV Neutrophils % % Lymphocytes % % Monocytes % % Eosinophils % % Basophils % % Neutrophils # (1.3-7.7) k/uL Lymphocytes # (1.0-4.8) k/uL Monocytes # (0-1.0) k/uL Eosinophils # (0-0.7) k/uL Basophils # (0-0.2) k/uL Anisocytosis Microcytosis Sodium (137-145) mmol/L Potassium (3.5-5.1) mmol/L Chloride (98-107) mmol/L Carbon Dioxide (22-30) mmol/L Anion Gap mmol/L BUN (7-17) mg/dL Creatinine (0.52-1.04) mg/dL Est GFR (CKD-EPI)AfAm (>60 ml/min/1.73 sqM) Est GFR (CKD-EPI)NonAf (>60 ml/min/1.73 sqM) Glucose (74-99) mg/dL Plasma Lactic Acid Travon (0.7-2.0) mmol/L Calcium (8.4-10.2) mg/dL Total Bilirubin (0.2-1.3) mg/dL AST (14-36) U/L ALT (4-34) U/L Alkaline Phosphatase (38-126) U/L Total Protein (6.3-8.2) g/dL Albumin (3.5-5.0) g/dL Amylase (30-110) U/L Lipase (23-300) U/L Urine Color Yellow Urine Appearance Cloudy H (Clear) Urine pH 6.0 (5.0-8.0) Ur Specific [place] 1.018 (1.001-1.035) Urine Protein 2+ H (Negative) Urine Glucose (UA) 2+ H (Negative) Urine Ketones Negative (Negative) Urine Blood Negative (Negative) Urine Nitrite Negative (Negative) Urine Bilirubin Negative (Negative) Urine Urobilinogen <2.0 (<2.0) mg/dL Ur Leukocyte Esterase Negative (Negative) Urine RBC <1 (0-5) /hpf Urine WBC 4 (0-5) /hpf Ur Squamous Epith Cells 2 (0-4) /hpf Hyaline Casts 1 (0-2) /lpf Urine Mucus Rare H (None) /hpf Disposition <Teo Mcgraw - Last Filed: 04/17/24 17:25> Is patient prescribed a controlled substance at d/c from ED?: No Time of Disposition: 19:51 <Lo Clemons - Last Filed: 04/17/24 19:54> Clinical Impression: Hyperglycemia, Gastroenteritis Disposition: HOME SELF-CARE Condition: Stable Instructions (If sedation given, give patient instructions): Abdominal Pain (ED) Additional Instructions: Please return to the Emergency Department if symptoms worsen or any other concerns. Referrals: Ashlee Nguyen NPC [REFERRING] - 1-2 days
[2024-04-17 17:58] VITALS: TEMP 99.2
[2024-04-17] MEDS: SODIUM CHLORIDE 0.9% 1,000 ML IV STA (18:50)
[2024-04-17 19:07] LABS: Anisocytosis Slight; Basophils % (A) 0 %; Eosinophils # (A) 0.2 k/uL (0-0.7); Eosinophils % (A) 3 %; HCT 38.6 % (34.0-46.0); HGB 12.6 gm/dL (11.4-16.0); Lymphocytes # (A) 2.9 k/uL (1.0-4.8); Lymphocytes % (A) 32 %; MCHC 32.5 g/dL (31.0-37.0); MCV 83.2 fL (80.0-100.0); Mean Platelet Volume 6.7; Microcytosis Slight; Monocytes # (A) 0.3 k/uL (0-1.0); Monocytes % (A) 4 %; Neutrophils # (A) 5.3 k/uL (1.3-7.7); Neutrophils % (A) 59 %; Platelet Count 479 k/uL (150-450); RBC 4.64 m/uL (3.80-5.40); RDW 16.2 % (11.5-15.5); WBC 8.9 k/uL (3.8-10.6)
[2024-04-17 19:09] LABS: Appearance,Urine Cloudy (Clear); Bilirubin,Urine Negative (Negative); Blood,Urine Negative (Negative); Color,Urine Yellow; Glucose,Urine (UA) 2+ (Negative); Hyaline Casts,Urine 1 /lpf (0-2); Ketones,Urine Negative (Negative); Leukocyte Esterase,Urine Negative (Negative); Mucus,Urine Rare /hpf; Nitrite,Urine Negative (Negative); Protein,Urine 2+ (Negative); RBC,Urine <1 /hpf (0-5); Specific Gravity,Urine 1.018 (1.001-1.035); Squamous Epithelial Cell,Urine 2 /hpf (0-4); Urobilinogen,Urine <2.0 mg/dL (<2.0); WBC,Urine 4 /hpf (0-5)
[2024-04-17 19:18] LABS: ALT 18 U/L (4-34); AST 21 U/L (14-36); African American GFR (CKD) >90 (>60 ml/min/1.73 sqM); Albumin 3.5 g/dL (3.5-5.0); Alkaline Phosphatase 111 U/L (38-126); Amylase 41 U/L (30-110); Anion Gap 11 mmol/L; Blood Urea Nitrogen 7 mg/dL (7-17); Calcium 8.5 mg/dL (8.4-10.2); Carbon Dioxide 23 mmol/L (22-30); Chloride 101 mmol/L (98-107); Glucose 300 mg/dL (74-99); Lipase 118 U/L (23-300); Non-African American GFR(CKD) >90 (>60 ml/min/1.73 sqM); Potassium 3.9 mmol/L (3.5-5.1); Sodium 135 mmol/L (137-145); Total Bilirubin 0.2 mg/dL (0.2-1.3); Total Protein 6.3 g/dL (6.3-8.2)
[2024-04-17] MEDS: KETOROLAC 15 MG/ML 1 ML VIAL IVP STA (20:56)
[2024-04-17] MEDS: INSULIN REGULAR 100 UNIT/ML VIAL (IM/SQ) SQ ONE (20:58)
[2024-04-17] MEDS: INSULIN REGULAR 100 UNIT/ML VIAL (IV) IV ONE (20:58)
[2024-04-17 21:03] VITALS: BP 168/97; PULSE 63; RESP 16
== END 2024-04-17 21:06 | disposition home or self-care (01) ==
LOC: EC 17:02 → SUPCPDRO 17:02 → EC 21:06
DX: K52.9 Noninfective gastroenteritis and colitis, unspecified (principal); R73.9 Hyperglycemia, unspecified; F17.290 Nicotine dependence, other tobacco product, uncomplicated; Z88.1 Allergy status to other antibiotic agents
CPT/HCPCS: 36415; 80053; 82150; 83605; 83690; 85025; 81001; 99284; 96374; J1885

== ENCOUNTER 2024-04-18 14:15 | Emergency (ER) | payer MEDICARE ==
[2024-04-18 15:44] VITALS: RESP 18; TEMP 98.8
--- NOTE | 2024-04-18 15:57 | ED ---
General Adult HPI - General Source: patient, EMS, RN notes reviewed Mode of arrival: EMS Limitations: no limitations <Usha Chand - Last Filed: 04/18/24 15:57> <Anastasiia Ramirez - Last Filed: 04/19/24 22:04> - General Chief complaint: Abdominal Pain Stated complaint: Abd pain Time Seen by Provider: 04/18/24 15:56 - History of Present Illness Initial comments: Quick note: 53-year-old female presents to the emergency department for evaluation of abdominal pain. Patient notes that he has been ongoing x 2 days. (Usha Chand) 53-year-old female presenting with chief complaint of abdominal pain. Has been ongoing for 2 days. Patient was seen here yesterday for this pain. She had no elevated white count, her abdomen was soft nontender nondistended, she was discharged. Patient states that the pain feels like when she has had gastritis in the past. She states that it is diffuse over the entire abdomen, there is no localized area. She is asking for something "for her acid". No vomiting, diarrhea, hematochezia, melena, chest pain, difficulty breathing, fever, chills (Anastasiia Ramirez) - Related Data Home Medications Medication Instructions Recorded Confirmed Atorvastatin [Lipitor] 80 mg PO HS 06/25/19 02/17/24 lisinopriL 40 mg PO DAILY 09/24/20 02/17/24 traZODone HCL 50 mg PO HS 01/11/21 02/17/24 INSULIN ASPART (NovoLOG) [NovoLOG 20 unit SQ AC-TID 11/26/22 02/17/24 (formulary)] Albuterol Inhaler [Ventolin Hfa 2 puff INHALATION RT-QID PRN 03/01/23 02/17/24 Inhaler] Insulin Glargine,Hum.rec.anlog 30 units SQ DAILY 07/30/23 02/17/24 [Lantus Solostar Pen] Dulaglutide [Trulicity] 1.5 mg SQ DIRECTED 02/17/24 02/17/24 Ezetimibe [Zetia] 10 mg PO HS 02/17/24 02/17/24 Insulin Aspart (Niacinamide) 8 units SQ DIRECTED 02/17/24 02/17/24 [Fiasp 100 Unit/ml Flextouch Pen] Nystatin 100,000 Unit/gm Powd 1 applic TOPICAL BID PRN 02/17/24 02/17/24 [Mycostatin Powder] Pantoprazole [Protonix] 40 mg PO DAILY 02/17/24 02/17/24 metFORMIN HCL [Glucophage] 500 mg PO BID 02/17/24 02/17/24 Previous Rx's Medication Instructions Recorded amLODIPine [Norvasc] 10 mg PO DAILY #30 tab 03/11/23 hydrALAZINE HCL [Apresoline] 25 mg PO BID #60 tab 03/11/23 Mupirocin 2% Oint [Bactroban 2% 1 applic TOPICAL TID #22 gm 02/17/24 Oint] Ondansetron Odt [Zofran Odt] 4 mg PO Q8HR PRN #10 tab 02/17/24 Sulfamethox-Tmp 800-160Mg [Bactrim 2 tab PO Q12HR #28 tab 02/17/24 DS 800-160 mg] Dicyclomine [Bentyl] 20 mg PO QID #15 tablet 03/15/24 Ondansetron Odt [Zofran Odt] 4 mg PO Q8HR PRN #10 tab 03/29/24 Benzonatate [Tessalon Perles] 100 mg PO TID PRN #9 capsule 04/06/24 Ibuprofen [Motrin] 600 mg PO Q8HR PRN 30 Days #30 tab 04/11/24 Famotidine [Pepcid] 20 mg PO DAILY #20 tablet 04/18/24 Mag Hydrox/Al Hydrox/Simeth 10 ml PO QID PRN #1 unit 04/18/24 [Maalox] Allergies Allergy/AdvReac Type Severity Reaction Status Date / Time levofloxacin [From Levaquin] Allergy Rash/Hives Verified 04/19/24 20:04 Review of Systems ROS Other: All systems not noted in ROS Statement are negative. <Usha Chand - Last Filed: 04/18/24 15:57> ROS Other: All systems not noted in ROS Statement are negative. <Anastasiia Ramirez - Last Filed: 04/19/24 22:04> ROS Statement: Those systems with pertinent positive or pertinent negative responses have been documented in the HPI. Past Medical History Past Medical History: Diabetes Mellitus, GERD/Reflux, Hyperlipidemia, Hypertension, Syncope Additional Past Medical History / Comment(s): Pt recently admitted to [facility] on 07/21/21 with uncontrolled IDDM and hyperkalemia. Other hx: Recurrent pancreatitis, hypertriglyceridemia, elevated lipase, IDDM type II, UTI, chronic low back pain, bulging discs, dental abscesses in past. History of Any Multi-Drug Resistant Organisms: MRSA Date of last positivie culture/infection: 03/01/23 MDRO Source:: Abdomen Past Surgical History: Tubal Ligation Additional Past Surgical History / Comment(s): Age 7 had VSD repair, tumor removal 03/2023 Past Anesthesia/Blood Transfusion Reactions: No Reported Reaction Past Psychological History: No Psychological Hx Reported Smoking Status: Former smoker, Second hand smoke exposure, Vaper Past Alcohol Use History: None Reported Past Drug Use History: None Reported - Past Family History Mother Family Medical History: No Reported History Additional Family Medical History / Comment(s): Mother was healthy. She is , pt cannot recall cause of . Father Family Medical History: Pneumonia Additional Family Medical History / Comment(s): Father at the age of 67yrs from pneumonia <Usha Chand - Last Filed: 04/18/24 15:57> General Exam Limitations: no limitations <Usha Chand - Last Filed: 04/18/24 15:57> Limitations: no limitations General appearance: alert, in no apparent distress Head exam: Present: atraumatic, normocephalic, normal inspection Eye exam: Present: normal appearance, EOMI Neck exam: Present: normal inspection. Absent: meningismus Respiratory exam: Present: normal lung sounds bilaterally. Absent: respiratory distress, wheezes, rales, rhonchi, stridor Cardiovascular Exam: Present: regular rate, normal rhythm, normal heart sounds. Absent: systolic murmur, diastolic murmur, rubs, gallop, clicks GI/Abdominal exam: Present: soft. Absent: distended, tenderness, guarding, rebound, rigid Neurological exam: Present: alert, oriented X3 Psychiatric exam: Present: normal affect, normal mood Skin exam: Present: warm, dry <Anastasiia Ramirez - Last Filed: 04/19/24 22:04> - General Exam Comments Initial Comments: Visual Physical Exam Vital signs reviewed General: Well-appearing, nontoxic, no acute distress. Head: Normocephalic, atraumatic Eyes: PERRLA, EOMI ENT: Airway patent Chest: Nonlabored breathing Skin: No visual rash, normal skin tone Neuro: Alert and oriented 3 Musculoskeletal: No gross abnormalities (Usha Chand) Course Vital Signs 04/18/24 04/18/24 15:43 20:56 Temperature 98.8 F Pulse Rate 60 76 Respiratory 18 Rate Blood Pressure 155/70 142/82 O2 Sat by Pulse 97 Oximetry Medical Decision Making <Usha Chand - Last Filed: 04/18/24 15:57> <Anastasiia Ramirez - Last Filed: 04/19/24 22:04> - Medical Decision Making Quick note preformed and electronically signed by Usha Chand PA-C (Usha Chand) Was pt. sent in by a medical professional or institution ([facility], [facility], urgent care, hospital, or care home...) When possible be specific @ -No Did you speak to anyone other than the patient for history (EMS, parent, family, police, friend...)? What history was obtained from this source @ -No Did you review nursing and triage notes (agree or disagree)? Why? @ -I reviewed and agree with nursing and triage notes Were old charts reviewed (outside hosp., previous admission, EMS record, old EKG, old radiological studies, urgent care reports/EKG's, care home records)? Report findings @ -I reviewed the patient's labs and the ER note from yesterday Differential Diagnosis (chest pain, altered mental status, abdominal pain women, abdominal pain men, vaginal bleeding, weakness, fever, dyspnea, syncope, headache, dizziness, GI bleed, back pain, seizure, CVA, palpatations, mental health, musculoskeletal)? @ -MDM Differential Abdominal Pain Women: Appendicitis, Cholecystitis, diverticulosis, ischemic bowel, pancreatitis, hepatitis, UTI, gastroenteritis, AAA, incarcerated hernia, bowel obstruction, constipation, inflammatory bowel, hepatitis, peptic ulcer disease, splenic infarction, perforated viscus, vulvitis, ovarian torsion, PID, kidney stone, placenta abruption... This is not meant to be an all-inclusive list EKG interpreted by me (3pts min.). @ -As above X-rays interpreted by me (1pt min.). @ -None done CT interpreted by me (1pt min.). @ -None done U/S interpreted by me (1pt. min.). @ -None done What testing was considered but not performed or refused? (CT, X-rays, U/S, labs)? Why? @ -None What meds were considered but not given or refused? Why? @ -None Did you discuss the management of the patient with other professionals (professionals i.e. DrShayan, PA, [facility], lab, RT, psych nurse, social worker clinical, ink maker, teacher, trust officer, counseling case manager)? Give summary @ -No Was smoking cessation discussed for >3mins.? @ -No Was critical care preformed (if so, how long)? @ -No Were there social determinants of health that impacted care today? How? (Homelessness, low income, unemployed, alcoholism, drug addiction, transportation, low edu. Level, literacy, decrease access to med. care, penitentiary, rehab)? @ -No Was there de-escalation of care discussed even if they declined (Discuss DNR or withdrawal of care, Hospice)? DNR status @ -No What co-morbidities impacted this encounter? (DM, HTN, Smoking, COPD, CAD, Cancer, CVA, ARF, Chemo, Hep., AIDS, mental health diagnosis, sleep apnea, morbid obesity)? @ -None Was patient admitted / discharged? Hospital course, mention meds given and route, prescriptions, significant lab abnormalities, going to OR and other pertinent info. @ -53-year-old female presenting with chief complaint of abdominal pain. Patient had labs performed yesterday, outside of elevated lactic acid they required no action. Patient states that this pain feels identical to when she had gastritis in the past. She is treated with Pepcid, GI cocktail, and Zofran. On reassessment she reports significant improvement in her pain. She is educated on supportive management at home. Follow-up with PCP. Report back to ER with any new or worsening symptoms. Discussed return parameters and answered all questions. Patient conveyed verbal understanding and agreed to the plan. I discussed this case in detail with my attending Dr. Huynh Undiagnosed new problem with uncertain prognosis? @ -No Drug Therapy requiring intensive monitoring for toxicity (Heparin, Nitro, Insulin, Cardizem)? @ -No Were any procedures done? @ -No Diagnosis/symptom? @ -Gastritis Acute, or Chronic, or Acute on Chronic? @ -Acute Uncomplicated (without systemic symptoms) or Complicated (systemic symptoms)? @ -uncomplicated Side effects of treatment? @ -No Exacerbation, Progression, or Severe Exacerbation? @ -No Poses a threat to life or bodily function? How? (Chest pain, [place], [place], pneumonia, PE, COPD, DKA, ARF, appy, cholecystitis, CVA, Diverticulitis, Homicidal, Suicidal, threat to staff... and all critical care pts) @ -Low likelihood (Anastasiia Ramirez) Disposition <Usha Chand - Last Filed: 04/18/24 15:57> Is patient prescribed a controlled substance at d/c from ED?: No Time of Disposition: 20:34 <Anastasiia Ramirez - Last Filed: 04/19/24 22:04> Clinical Impression: Gastritis Disposition: HOME SELF-CARE Condition: Good Instructions (If sedation given, give patient instructions): Gastritis (ED) Additional Instructions: Follow-up with PCP. Report back to ER with any new or worsening symptoms. Prescriptions: Mag Hydrox/Al Hydrox/Simeth [Maalox] 10 ml PO QID PRN #1 unit PRN Reason: Dyspepsia Famotidine [Pepcid] 20 mg PO DAILY #20 tablet Referrals: [facility] Sohail palacios [Primary Care Provider] - 1-2 days
[2024-04-18] MEDS: MAG HYDROX/AL HYDROX/SIMETH 30 ML CUP PO STA (19:59)
[2024-04-18] MEDS: ONDANSETRON ODT 4 MG TAB PO STA (19:59)
[2024-04-18] MEDS: LIDOCAINE VISCOUS 2% 15 ML CUP PO ONE (19:59)
[2024-04-18] MEDS: FAMOTIDINE 20 MG TAB PO STA (19:59)
[2024-04-18 20:57] VITALS: BP 142/82; PULSE 76
== END 2024-04-18 20:57 | disposition home or self-care (01) ==
LOC: EC 14:15
DX: K29.70 Gastritis, unspecified, without bleeding (principal); F17.290 Nicotine dependence, other tobacco product, uncomplicated; Z88.1 Allergy status to other antibiotic agents
CPT/HCPCS: 99284

== ENCOUNTER 2024-04-19 19:59 | Emergency (ER) | payer MEDICARE ==
[2024-04-19 20:11] VITALS: TEMP 99.3
[2024-04-19 20:20] LABS: Glucose,Whole Blood >600 mg/dL (70-110)
[2024-04-19] MEDS: SODIUM CHLORIDE 0.9% 2,000 ML IV ONE (20:40)
[2024-04-19 20:43] LABS: Appearance,Urine Clear (Clear); Bilirubin,Urine Negative (Negative); Blood,Urine Negative (Negative); Color,Urine Colorless; Glucose,Urine (UA) 4+ (Negative); Ketones,Urine Negative (Negative); Leukocyte Esterase,Urine Negative (Negative); Nitrite,Urine Negative (Negative); PH, Urine 5.5 (5.0-8.0); Protein,Urine Trace (Negative); Specific Gravity,Urine 1.022 (1.001-1.035); Urobilinogen,Urine <2.0 mg/dL (<2.0)
[2024-04-19 20:49] LABS: Anisocytosis Slight; Basophils % (A) 0 %; Eosinophils # (A) 0.2 k/uL (0-0.7); Eosinophils % (A) 2 %; HCT 39.4 % (34.0-46.0); HGB 12.4 gm/dL (11.4-16.0); Hypochromasia Slight; Lymphocytes # (A) 2.4 k/uL (1.0-4.8); Lymphocytes % (A) 31 %; MCHC 31.6 g/dL (31.0-37.0); MCV 85.3 fL (80.0-100.0); Mean Platelet Volume 6.7; Monocytes # (A) 0.4 k/uL (0-1.0); Monocytes % (A) 5 %; Neutrophils # (A) 4.5 k/uL (1.3-7.7); Neutrophils % (A) 59 %; Platelet Count 415 k/uL (150-450); RBC 4.61 m/uL (3.80-5.40); RDW 16.2 % (11.5-15.5); WBC 7.6 k/uL (3.8-10.6)
[2024-04-19 20:51] LABS: VBG PH 7.4 (7.31-7.41)
[2024-04-19 21:04] LABS: African American GFR (CKD) >90 (>60 ml/min/1.73 sqM); Albumin 3.7 g/dL (3.5-5.0); Alkaline Phosphatase 108 U/L (38-126); Blood Urea Nitrogen 7 mg/dL (7-17); Carbon Dioxide 20 mmol/L (22-30); Non-African American GFR(CKD) >90 (>60 ml/min/1.73 sqM); Phosphorus 3.7 mg/dL (2.5-4.5); Potassium 4.3 mmol/L (3.5-5.1); Sodium 133 mmol/L (137-145)
[2024-04-19 21:17] LABS: ALT 17 U/L (4-34); AST 21 U/L (14-36); Anion Gap 13 mmol/L; Calcium 8.4 mg/dL (8.4-10.2); Chloride 100 mmol/L (98-107); Magnesium 1.3 mg/dL (1.6-2.3); Total Bilirubin 0.3 mg/dL (0.2-1.3); Total Protein 6.3 g/dL (6.3-8.2)
[2024-04-19 21:25] LABS: Glucose 621 mg/dL (74-99)
[2024-04-19] MEDS: CYCLOBENZAPRINE 5 MG TAB PO STA (22:28)
[2024-04-19] MEDS: hydrALAZINE HCL 25 MG TAB PO STA (22:28)
[2024-04-19] MEDS: MAGNESIUM OXIDE 400 MG TAB PO STA (22:28)
[2024-04-19] MEDS: INSULIN DETEMIR (LEVEMIR) 100 UNIT/ML SYR SQ STA (22:29)
[2024-04-19] MEDS: INSULIN ASPART (NovoLOG) 100 UNIT/ML VIAL SQ ONE (22:30)
[2024-04-19] MEDS: KETOROLAC 15 MG/ML 1 ML VIAL IVP STA (22:31)
[2024-04-19] MEDS: MAGNESIUM SULFATE-D5W PMX 1 GM in DEXTROSE/WATER 1 100ML.BAG IVPB SCH (22:35)
[2024-04-19] MEDS: LIDOCAINE 4% PATCH TOPICAL ONE (22:37)
[2024-04-19 23:38] LABS: Glucose,Whole Blood 465 mg/dL (70-110)
[2024-04-19] MEDS: SODIUM CHLORIDE 0.9% 500 ML 500 ML IV ONE (23:48)
[2024-04-19] MEDS: INSULIN REGULAR 100 UNIT/ML VIAL (IV) IV ONE (23:49)
[2024-04-20 00:31] LABS: Glucose,Whole Blood 325 mg/dL (70-110)
--- NOTE | 2024-04-20 00:56 | ED ---
General Adult HPI - General Chief complaint: Recheck/Abnormal Lab/Rx Stated complaint: Hyperglycemia Time Seen by Provider: 04/19/24 20:01 Source: patient, EMS Mode of arrival: EMS Limitations: no limitations - History of Present Illness Initial comments: Patient is a 53-year-old female the past medical history of diabetes presenting today for hyperglycemia. Patient states that she was unable to product picker her insulin pen from which she usually gets 30 units daily, at the pharmacy earlier today. She denies new changes in vision, confusion, numbness, chest pain, difficulty in breathing, dizziness, fevers, nausea, vomiting and diarrhea. She also notes chronic left lateral thigh pain, stating from an old injury that "gets hard" and flares up in the winter. 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 Endorses urinary frequency. Denies dysuria. - Related Data Home Medications Medication Instructions Recorded Confirmed Atorvastatin [Lipitor] 80 mg PO HS 06/25/19 02/17/24 lisinopriL 40 mg PO DAILY 09/24/20 02/17/24 traZODone HCL 50 mg PO HS 01/11/21 02/17/24 INSULIN ASPART (NovoLOG) [NovoLOG 20 unit SQ AC-TID 11/26/22 02/17/24 (formulary)] Albuterol Inhaler [Ventolin Hfa 2 puff INHALATION RT-QID PRN 03/01/23 02/17/24 Inhaler] Insulin Glargine,Hum.rec.anlog 30 units SQ DAILY 07/30/23 02/17/24 [Lantus Solostar Pen] Dulaglutide [Trulicity] 1.5 mg SQ DIRECTED 02/17/24 02/17/24 Ezetimibe [Zetia] 10 mg PO HS 02/17/24 02/17/24 Insulin Aspart (Niacinamide) 8 units SQ DIRECTED 02/17/24 02/17/24 [Fiasp 100 Unit/ml Flextouch Pen] Nystatin 100,000 Unit/gm Powd 1 applic TOPICAL BID PRN 02/17/24 02/17/24 [Mycostatin Powder] Pantoprazole [Protonix] 40 mg PO DAILY 02/17/24 02/17/24 metFORMIN HCL [Glucophage] 500 mg PO BID 02/17/24 02/17/24 Previous Rx's Medication Instructions Recorded amLODIPine [Norvasc] 10 mg PO DAILY #30 tab 03/11/23 hydrALAZINE HCL [Apresoline] 25 mg PO BID #60 tab 03/11/23 Mupirocin 2% Oint [Bactroban 2% 1 applic TOPICAL TID #22 gm 02/17/24 Oint] Ondansetron Odt [Zofran Odt] 4 mg PO Q8HR PRN #10 tab 02/17/24 Sulfamethox-Tmp 800-160Mg [Bactrim 2 tab PO Q12HR #28 tab 02/17/24 DS 800-160 mg] Dicyclomine [Bentyl] 20 mg PO QID #15 tablet 03/15/24 Ondansetron Odt [Zofran Odt] 4 mg PO Q8HR PRN #10 tab 03/29/24 Benzonatate [Tessalon Perles] 100 mg PO TID PRN #9 capsule 04/06/24 Ibuprofen [Motrin] 600 mg PO Q8HR PRN 30 Days #30 tab 04/11/24 Famotidine [Pepcid] 20 mg PO DAILY #20 tablet 04/18/24 Mag Hydrox/Al Hydrox/Simeth 10 ml PO QID PRN #1 unit 04/18/24 [Maalox] Lidocaine 4% Patch 1 patch TOPICAL DAILY 4 Days #4 04/20/24 patch Allergies Allergy/AdvReac Type Severity Reaction Status Date / Time levofloxacin [From Levaquin] Allergy Rash/Hives Verified 04/19/24 20:04 Review of Systems ROS Statement: Those systems with pertinent positive or pertinent negative responses have been documented in the HPI. ROS Other: All systems not noted in ROS Statement are negative. Past Medical History Past Medical History: Diabetes Mellitus, GERD/Reflux, Hyperlipidemia, Hypertension, Syncope Additional Past Medical History / Comment(s): Pt recently admitted to [facility] on 07/21/21 with uncontrolled IDDM and hyperkalemia. Other hx: Recurrent pancreatitis, hypertriglyceridemia, elevated lipase, IDDM type II, UTI, chronic low back pain, bulging discs, dental abscesses in past. History of Any Multi-Drug Resistant Organisms: MRSA Date of last positivie culture/infection: 03/01/23 MDRO Source:: Abdomen Past Surgical History: Tubal Ligation Additional Past Surgical History / Comment(s): Age 7 had VSD repair, tumor removal 03/2023 Past Anesthesia/Blood Transfusion Reactions: No Reported Reaction Past Psychological History: No Psychological Hx Reported Smoking Status: Former smoker, Second hand smoke exposure, Vaper Past Alcohol Use History: None Reported Past Drug Use History: None Reported - Past Family History Mother Family Medical History: No Reported History Additional Family Medical History / Comment(s): Mother was healthy. She is , pt cannot recall cause of . Father Family Medical History: Pneumonia Additional Family Medical History / Comment(s): Father at the age of 67yrs from pneumonia General Exam - General Exam Comments Initial Comments: PE: CONSTITUTIONAL: No apparent distress, well appearing SKIN: Warm, dry, no jaundice, hives or petechiae, abrasions or lacerations in the area of discomfort EYES: Pupils are equally round, extraocular movements intact without nystagmus, clear conjunctiva, non-icteric sclera HENT: Normocephalic, atraumatic, moist mucus membranes, oropharynx clear without exudates NECK: , Full range of motion, normal appearance PULMONARY: Clear to auscultation without wheezes, rhonchi, or rales, normal excursion, no accessory muscle use and no stridor CARDIOVASCULAR: Regular rate, rhythm, normal S1 and S2. No appreciated murmurs, rubs or gallops. Strong radial pulses with intact distal perfusion. No lower extremity edema GASTROINTESTINAL: Soft, active bowel sounds throughout, non-tender, non-dis tended, no palpable masses, no rebound or guarding. No hepatosplenomegaly MUSCULOSKELETAL: Extremities have no gross deformity, no edema, redness, or swelling. Mild tenderness to palpation along the left IT band, no masses palpated, extremity is atraumatic NEUROLOGIC:_a/o x 3, GCS 15, normal mentation and speech. Moves all extremities x 4 without motor or sensory deficit PSYCHIATRIC:_normal mood and affect, thought process is clear and linear Limitations: no limitations Course Vital Signs 04/19/24 04/19/24 04/20/24 20:04 20:42 01:13 Temperature 99.3 F Pulse Rate 65 59 L 57 L Respiratory 18 16 18 Rate Blood Pressure 187/86 179/86 152/88 O2 Sat by Pulse 99 99 97 Oximetry EKG Findings - EKG Comments: EKG Findings:: Sinus bradycardia, rate 55 bpm NM interval 144 ms, QT/QTc 409/398 ms, normal axis, no ST elevations or depressions,Compared to EKG performed on 04/15/2023, no significant changes from prior, no new ST elevations or depressions from prior no STEMI Medical Decision Making - Medical Decision Making Was pt. sent in by a medical professional or institution (, PA, QA AUTOMATION ENGINEER, urgent care, hospital, or usp...) When possible be specific @ -No Did you speak to anyone other than the patient for history (EMS, parent, family, police, friend...)? What history was obtained from this source @ -No Did you review nursing and triage notes (agree or disagree)? Why? @ -I reviewed nursing and triage notes Were old charts reviewed (outside hosp., previous admission, EMS record, old EKG, old radiological studies, urgent care reports/EKG's, usp records)? Report findings @ -Medical records reviewed patient is very familiar to this department, having had multiple visits 7 in the last month alone for various complaints, Most recent of which has been for abdominal pain on 04/18/2024 during which she was treated with Pepcid, GI cocktail and Zofran with significant improvement of her pain. The day prior to that patient had presented for abdominal pain and was provided with fluids, labs were significant for blood glucose of 300, lactic of 4 noted during that visit the patient has a known history of uncontrolled diabetes she had a normal anion gap, no ketones in her urine she was given 10 units IV insulin patient was discharged Differential Diagnosis (chest pain, altered mental status, abdominal pain women, abdominal pain men, vaginal bleeding, weakness, fever, dyspnea, syncope, headache, dizziness, GI bleed, back pain, seizure, CVA, palpatations, mental health, musculoskeletal)? Differential diagnosis remains broad however top considerations include hyperglycemia secondary to medication noncompliance, decreased access to medical care, dietary intake, infectious etiology, HHS, DKA, this is not an all- inclusive list EKG interpreted by me (3pts min.). @ -As above X-rays interpreted by me (1pt min.). @ -None done CT interpreted by me (1pt min.). @ -None done U/S interpreted by me (1pt. min.). @ -None done What testing was considered but not performed or refused? (CT, X-rays, U/S, labs)? Why? @ -None What meds were considered but not given or refused? Why? @ -None Did you discuss the management of the patient with other professionals (bakari edmonds i.e. , PA, QA AUTOMATION ENGINEER, lab, RT, psych nurse, social work case manager, probate lawyer, teacher, u.[employer]. revenue officer, supervisor case loading)? Give summary @ -No Was smoking cessation discussed for >3mins.? @ -No Was critical care preformed (if so, how long)? @Yes 35 minutes (hypomagnesemia,hyperglycemia) Were there social determinants of health that impacted care today? How? (Homelessness, low income, unemployed, alcoholism, drug addiction, transportation, low edu. Level, literacy, decrease access to med. care, detention, rehab)? Poor health literacy Was there de-escalation of care discussed even if they declined (Discuss DNR or withdrawal of care, Hospice)? @ -No What co-morbidities impacted this encounter? (DM, HTN, Smoking, COPD, CAD, Cancer, CVA, ARF, Chemo, Hep., AIDS, mental health diagnosis, sleep apnea, morbid obesity)? Diabetes Was patient admitted / discharged? Hospital course, mention meds given and route, prescriptions, significant lab abnormalities, going to OR and other pertinent info. @Discharged-this is a pleasant 53-year-old female past medical history of diabetes presenting today for hyperglycemia. Patient seen and assessed by myself, complete history and physical exam was performed. Of note during my history gathering patient mentioned chronic left-sided hip pain and requested pain medication, specifically morphine. We discussed plan for Toradol, Tylenol and a lidocaine patch in addition to labs to assess for signs of DKA, IV fluids and insulin. Patient agreeable with plan of care. EKG was obtained to assess for signs of hyperkalemia, if patient is indeed n DKA. On arrival Glucose, greater than 600, labs otherwise significant for pH of 7.40, magnesium of 1.3 anion gap of 13, negative urine ketones, negative blood acetone,. IV and oral magnesium ordered, patient's home 30 units of insulin were ordered in addition to short acting insulin. Updated patient to findings and plan, she is agreeable plan of care. After administration of these medications patient's glucose tessie ined 465 so she was given additional 10 units of IV insulin. On reassessment blood glucose 325. At this point I feel patient's glucose control is improved and will continue to improve as the patient has received discussed with patient the importance of decreasing her sugar intake and eating a healthy diet and eating plenty of vegetables less sugar. Pt understanding and agreeable with plan of care. Discharged in improved condition. In my medical judgment there is currently no evidence of an immediate life- threatening or surgical condition. Discharge is therefore indicated at this time. Discharge treatment instructions, follow up instructions, and appropriate emergency department return precautions were discussed with the patient and/or medical decision maker. Patient and/or medical decision maker expressed understanding of and agreed with the treatment plan, follow up instructions, and emergency department return precaution. All patient's and/or medical decision maker's questions were answered. Undiagnosed new problem with uncertain prognosis? @ -No Drug Therapy requiring intensive monitoring for toxicity (Heparin, Nitro, Insulin, Cardizem)? @ -No Were any procedures done? @ -No Diagnosis/symptom? Hyperglycemia chronic hip pain, hypomagnesemia Acute, or Chronic, or Acute on Chronic? @Acute, Uncomplicated (without systemic symptoms) or Complicated (systemic symptoms)? Complicated Side effects of treatment? @ -No Exacerbation, Progression, or Severe Exacerbation? @ -No Poses a threat to life or bodily function? How? (Chest pain, [place], [place], pneumonia, PE, COPD, DKA, ARF, appy, cholecystitis, CVA, Diverticulitis, Homicidal, Suicidal, threat to staff... and all critical care pts) @ Yes, these conditions (uncontrolled hyperglycemia, hypomagnesemia) , left untreated could be potentially life threatening, however after thorough evaluation and treatment, at time of discharge, no longer life threatening - Lab Data Result diagrams: 04/19/24 20:35 04/19/24 20:35 Lab Results 04/19/24 04/19/24 04/19/24 Range/Units 20:09 20:35 20:35 WBC 7.6 (3.8-10.6) k/uL RBC 4.61 (3.80-5.40) m/uL Hgb 12.4 (11.4-16.0) gm/dL Hct 39.4 (34.0-46.0) % MCV 85.3 (80.0-100.0) fL MCH 27.0 (25.0-35.0) pg MCHC 31.6 (31.0-37.0) g/dL RDW 16.2 H (11.5-15.5) % Plt Count 415 (150-450) k/uL MPV 6.7 Neutrophils % 59 % Lymphocytes % 31 % Monocytes % 5 % Eosinophils % 2 % Basophils % 0 % Neutrophils # 4.5 (1.3-7.7) k/uL Lymphocytes # 2.4 (1.0-4.8) k/uL Monocytes # 0.4 (0-1.0) k/uL Eosinophils # 0.2 (0-0.7) k/uL Basophils # 0.0 (0-0.2) k/uL Hypochromasia Slight Anisocytosis Slight VBG pH (7.31-7.41) VBG pCO2 (37-51) mmHg VBG HCO3 (24-28) mmol/L Sodium 133 L (137-145) mmol/L Potassium 4.3 (3.5-5.1) mmol/L Chloride 100 (98-107) mmol/L Carbon Dioxide 20 L (22-30) mmol/L Anion Gap 13 mmol/L BUN 7 (7-17) mg/dL Creatinine 0.69 (0.52-1.04) mg/dL Est GFR (CKD-EPI)AfAm >90 (>60 ml/min/1.73 sqM) Est GFR (CKD-EPI)NonAf >90 (>60 ml/min/1.73 sqM) Glucose 621 H* (74-99) mg/dL POC Glucose (mg/dL) >600 H* (70-110) mg/dL POC Glu Mold Changer ID [place] Calcium 8.4 (8.4-10.2) mg/dL Phosphorus 3.7 (2.5-4.5) mg/dL Magnesium 1.3 L (1.6-2.3) mg/dL Total Bilirubin 0.3 (0.2-1.3) mg/dL AST 21 (14-36) U/L ALT 17 (4-34) U/L Alkaline Phosphatase 108 (38-126) U/L Total Protein 6.3 (6.3-8.2) g/dL Albumin 3.7 (3.5-5.0) g/dL Urine Color Urine Appearance (Clear) Urine pH (5.0-8.0) Ur Specific [place] (1.001-1.035) Urine Protein (Negative) Urine Glucose (UA) (Negative) Urine Ketones (Negative) Urine Blood (Negative) Urine Nitrite (Negative) Urine Bilirubin (Negative) Urine Urobilinogen (<2.0) mg/dL Ur Leukocyte Esterase (Negative) Acetone, Qual Negative (Negative) 04/19/24 04/19/24 04/19/24 Range/Units 20:35 20:37 23:37 WBC (3.8-10.6) k/uL RBC (3.80-5.40) m/uL Hgb (11.4-16.0) gm/dL Hct (34.0-46.0) % MCV (80.0-100.0) fL MCH (25.0-35.0) pg MCHC (31.0-37.0) g/dL RDW (11.5-15.5) % Plt Count (150-450) k/uL MPV Neutrophils % % Lymphocytes % % Monocytes % % Eosinophils % % Basophils % % Neutrophils # (1.3-7.7) k/uL Lymphocytes # (1.0-4.8) k/uL Monocytes # (0-1.0) k/uL Eosinophils # (0-0.7) k/uL Basophils # (0-0.2) k/uL Hypochromasia Anisocytosis VBG pH 7.40 (7.31-7.41) VBG pCO2 36 L (37-51) mmHg VBG HCO3 23 L (24-28) mmol/L Sodium (137-145) mmol/L Potassium (3.5-5.1) mmol/L Chloride (98-107) mmol/L Carbon Dioxide (22-30) mmol/L Anion Gap mmol/L BUN (7-17) mg/dL Creatinine (0.52-1.04) mg/dL Est GFR (CKD-EPI)AfAm (>60 ml/min/1.73 sqM) Est GFR (CKD-EPI)NonAf (>60 ml/min/1.73 sqM) Glucose (74-99) mg/dL POC Glucose (mg/dL) 465 H (70-110) mg/dL POC Glu Mold Changer ID Jennifer Damian Calcium (8.4-10.2) mg/dL Phosphorus (2.5-4.5) mg/dL Magnesium (1.6-2.3) mg/dL Total Bilirubin (0.2-1.3) mg/dL AST (14-36) U/L ALT (4-34) U/L Alkaline Phosphatase (38-126) U/L Total Protein (6.3-8.2) g/dL Albumin (3.5-5.0) g/dL Urine Color Colorless Urine Appearance Clear (Clear) Urine pH 5.5 (5.0-8.0) Ur Specific [place] 1.022 (1.001-1.035) Urine Protein Trace H (Negative) Urine Glucose (UA) 4+ H (Negative) Urine Ketones Negative (Negative) Urine Blood Negative (Negative) Urine Nitrite Negative (Negative) Urine Bilirubin Negative (Negative) Urine Urobilinogen <2.0 (<2.0) mg/dL Ur Leukocyte Esterase Negative (Negative) Acetone, Qual (Negative) 04/20/24 Range/Units 00:29 WBC (3.8-10.6) k/uL RBC (3.80-5.40) m/uL Hgb (11.4-16.0) gm/dL Hct (34.0-46.0) % MCV (80.0-100.0) fL MCH (25.0-35.0) pg MCHC (31.0-37.0) g/dL RDW (11.5-15.5) % Plt Count (150-450) k/uL MPV Neutrophils % % Lymphocytes % % Monocytes % % Eosinophils % % Basophils % % Neutrophils # (1.3-7.7) k/uL Lymphocytes # (1.0-4.8) k/uL Monocytes # (0-1.0) k/uL Eosinophils # (0-0.7) k/uL Basophils # (0-0.2) k/uL Hypochromasia Anisocytosis VBG pH (7.31-7.41) VBG pCO2 (37-51) mmHg VBG HCO3 (24-28) mmol/L Sodium (137-145) mmol/L Potassium (3.5-5.1) mmol/L Chloride (98-107) mmol/L Carbon Dioxide (22-30) mmol/L Anion Gap mmol/L BUN (7-17) mg/dL Creatinine (0.52-1.04) mg/dL Est GFR (CKD-EPI)AfAm (>60 ml/min/1.73 sqM) Est GFR (CKD-EPI)NonAf (>60 ml/min/1.73 sqM) Glucose (74-99) mg/dL POC Glucose (mg/dL) 325 H (70-110) mg/dL POC Glu Mold Changer ID Burgess Schuster Calcium (8.4-10.2) mg/dL Phosphorus (2.5-4.5) mg/dL Magnesium (1.6-2.3) mg/dL Total Bilirubin (0.2-1.3) mg/dL AST (14-36) U/L ALT (4-34) U/L Alkaline Phosphatase (38-126) U/L Total Protein (6.3-8.2) g/dL Albumin (3.5-5.0) g/dL Urine Color Urine Appearance (Clear) Urine pH (5.0-8.0) Ur Specific [place] (1.001-1.035) Urine Protein (Negative) Urine Glucose (UA) (Negative) Urine Ketones (Negative) Urine Blood (Negative) Urine Nitrite (Negative) Urine Bilirubin (Negative) Urine Urobilinogen (<2.0) mg/dL Ur Leukocyte Esterase (Negative) Acetone, Qual (Negative) Disposition Clinical Impression: Hyperglycemia, Hypomagnesemia Disposition: HOME SELF-CARE Condition: Stable Instructions (If sedation given, give patient instructions): Diabetic Hyperglycemia (ED) Additional Instructions: Every disease is a spectrum and a small chance still exists that a serious condition could develop, for this reason, please monitor yourself closely for new, changing or worsening symptoms, changes in vision, confusion, nausea and vomiting, fevers inability to tolerate/keep down fluids or your medications, inability to follow up with outpatient providers as instructed and should you experience these symptoms or should you have any further concerns for your wellbeing please return to the ED or call 911 immediately. PLEASE call your primary care physician as soon as possible to arrange / discuss plan for followup appointment. Appointment in the next 1-3 days is strongly encouraged if possible. PLEASE let us know here before you leave if there is anything further we can do to be of any assistance. Take care and feel Better! Prescriptions: Lidocaine 4% Patch 1 patch TOPICAL DAILY 4 Days #4 patch Is patient prescribed a controlled substance at d/c from ED?: No Referrals: [facility] [Primary Care Provider] - 1-2 days
[2024-04-20 01:14] VITALS: BP 152/88; PULSE 57; RESP 18
== END 2024-04-20 01:14 | disposition home or self-care (01) ==
LOC: EC 19:59
DX: E11.65 Type 2 diabetes mellitus with hyperglycemia (principal); E78.1 Pure hyperglyceridemia; E83.42 Hypomagnesemia; M79.652 Pain in left thigh; G89.29 Other chronic pain; F17.290 Nicotine dependence, other tobacco product, uncomplicated; Z88.1 Allergy status to other antibiotic agents; Z79.4 Long term (current) use of insulin
CPT/HCPCS: 36415 ×2; 93005; 80053; 82803; 82009; 83735; 84100; 85025; 81003; 99291; 96365; 96375; 96361 ×2; J3475; J1885

== ENCOUNTER 2024-04-24 15:15 | Emergency (ER) | payer MEDICARE ==
[2024-04-24 16:06] VITALS: RESP 18
--- NOTE | 2024-04-24 16:29 | ED ---
General Adult HPI - General Chief complaint: Back Pain/Injury Stated complaint: Generalized pain Time Seen by Provider: 04/24/24 16:09 Source: patient, RN notes reviewed Mode of arrival: EMS Limitations: no limitations - History of Present Illness Initial comments: This is a 53-year-old female as well as for Emergency Department presenting for complaint of "pain all over'. Patient does have chronic pain worse of the back and of the left hip. Patient states that she has not taken any medications today to help alleviate her symptoms. She denies recent falls or injuries. She denies chest pain, shortness of breath, heart palpitations, dizziness, headedness, abdominal pain, nausea or vomiting. No other acute complaints at this time. - Related Data Home Medications Medication Instructions Recorded Confirmed Atorvastatin [Lipitor] 80 mg PO HS 06/25/19 02/17/24 lisinopriL 40 mg PO DAILY 09/24/20 02/17/24 traZODone HCL 50 mg PO HS 01/11/21 02/17/24 INSULIN ASPART (NovoLOG) [NovoLOG 20 unit SQ AC-TID 11/26/22 02/17/24 (formulary)] Albuterol Inhaler [Ventolin Hfa 2 puff INHALATION RT-QID PRN 03/01/23 02/17/24 Inhaler] Insulin Glargine,Hum.rec.anlog 30 units SQ DAILY 07/30/23 02/17/24 [Lantus Solostar Pen] Dulaglutide [Trulicity] 1.5 mg SQ DIRECTED 02/17/24 02/17/24 Ezetimibe [Zetia] 10 mg PO HS 02/17/24 02/17/24 Insulin Aspart (Niacinamide) 8 units SQ DIRECTED 02/17/24 02/17/24 [Fiasp 100 Unit/ml Flextouch Pen] Nystatin 100,000 Unit/gm Powd 1 applic TOPICAL BID PRN 02/17/24 02/17/24 [Mycostatin Powder] Pantoprazole [Protonix] 40 mg PO DAILY 02/17/24 02/17/24 metFORMIN HCL [Glucophage] 500 mg PO BID 02/17/24 02/17/24 Previous Rx's Medication Instructions Recorded amLODIPine [Norvasc] 10 mg PO DAILY #30 tab 03/11/23 hydrALAZINE HCL [Apresoline] 25 mg PO BID #60 tab 03/11/23 Mupirocin 2% Oint [Bactroban 2% 1 applic TOPICAL TID #22 gm 02/17/24 Oint] Ondansetron Odt [Zofran Odt] 4 mg PO Q8HR PRN #10 tab 02/17/24 Sulfamethox-Tmp 800-160Mg [Bactrim 2 tab PO Q12HR #28 tab 02/17/24 DS 800-160 mg] Dicyclomine [Bentyl] 20 mg PO QID #15 tablet 03/15/24 Ondansetron Odt [Zofran Odt] 4 mg PO Q8HR PRN #10 tab 03/29/24 Benzonatate [Tessalon Perles] 100 mg PO TID PRN #9 capsule 04/06/24 Ibuprofen [Motrin] 600 mg PO Q8HR PRN 30 Days #30 tab 04/11/24 Famotidine [Pepcid] 20 mg PO DAILY #20 tablet 04/18/24 Mag Hydrox/Al Hydrox/Simeth 10 ml PO QID PRN #1 unit 04/18/24 [Maalox] Lidocaine 4% Patch 1 patch TOPICAL DAILY 4 Days #4 04/20/24 patch Allergies Allergy/AdvReac Type Severity Reaction Status Date / Time levofloxacin [From Levaquin] Allergy Rash/Hives Verified 04/24/24 16:06 Review of Systems ROS Statement: Those systems with pertinent positive or pertinent negative responses have been documented in the HPI. ROS Other: All systems not noted in ROS Statement are negative. Past Medical History Past Medical History: Diabetes Mellitus, GERD/Reflux, Hyperlipidemia, Hypertension, Syncope Additional Past Medical History / Comment(s): Pt recently admitted to [facility] on 07/21/21 with uncontrolled IDDM and hyperkalemia. Other hx: Recurrent pancreatitis, hypertriglyceridemia, elevated lipase, IDDM type II, UTI, chronic low back pain, bulging discs, dental abscesses in past. History of Any Multi-Drug Resistant Organisms: MRSA Date of last positivie culture/infection: 03/01/23 MDRO Source:: Abdomen Past Surgical History: Tubal Ligation Additional Past Surgical History / Comment(s): Age 7 had VSD repair, tumor removal 03/2023 Past Anesthesia/Blood Transfusion Reactions: No Reported Reaction Past Psychological History: No Psychological Hx Reported Smoking Status: Former smoker, Second hand smoke exposure, Vaper Past Alcohol Use History: None Reported Past Drug Use History: None Reported - Past Family History Mother Family Medical History: No Reported History Additional Family Medical History / Comment(s): Mother was healthy. She is , pt cannot recall cause of . Father Family Medical History: Pneumonia Additional Family Medical History / Comment(s): Father at the age of 67yrs from pneumonia General Exam Limitations: no limitations General appearance: alert, in no apparent distress Eye exam: Present: normal appearance, PERRL, EOMI. Absent: scleral icterus, conjunctival injection, periorbital swelling ENT exam: Present: normal exam, mucous membranes moist Neck exam: Present: normal inspection. Absent: tenderness, meningismus, lymphadenopathy Respiratory exam: Present: normal lung sounds bilaterally. Absent: respiratory distress, wheezes, rales, rhonchi, stridor Cardiovascular Exam: Present: regular rate, normal rhythm, normal heart sounds. Absent: systolic murmur, diastolic murmur, rubs, gallop, clicks GI/Abdominal exam: Present: soft, normal bowel sounds. Absent: distended, tenderness, guarding, rebound, rigid Extremities exam: Present: normal inspection, full ROM, normal capillary refill. Absent: tenderness, pedal edema, joint swelling, calf tenderness Back exam: Present: normal inspection Course Vital Signs 04/24/24 16:04 Temperature 98.7 F Pulse Rate 69 Respiratory 18 Rate Blood Pressure 144/69 O2 Sat by Pulse 97 Oximetry Medical Decision Making - Medical Decision Making Was pt. sent in by a medical professional or institution (, PA, FLASH WELDING MACHINE OPERATOR, urgent care, hospital, or correction...) When possible be specific @ -No Did you speak to anyone other than the patient for history (EMS, parent, family, police, friend...)? What history was obtained from this source @ -No Did you review nursing and triage notes (agree or disagree)? Why? @ -I reviewed and agree with nursing and triage notes Were old charts reviewed (outside hosp., previous admission, EMS record, old EKG, old radiological studies, urgent care reports/EKG's, correction records)? Report findings @ -No old charts were reviewed Differential Diagnosis (chest pain, altered mental status, abdominal pain women, abdominal pain men, vaginal bleeding, weakness, fever, dyspnea, syncope, headache, dizziness, GI bleed, back pain, seizure, CVA, palpatations, mental health, musculoskeletal)? @ -Differential Back Pain: Strain, zoster, cauda equina syndrome, epidural abscess, vertebral osteomyelitis, discitis, fracture, subluxation, disc herniation, DJD, spinal stenosis, dissection, AAA, pancreatitis, peptic ulcer disease, pyelonephritis, kidney stone, this is not meant to be an all-inclusive list. EKG interpreted by me (3pts min.). @ -None X-rays interpreted by me (1pt min.). @ -None done CT interpreted by me (1pt min.). @ -None done U/S interpreted by me (1pt. min.). @ -None done What testing was considered but not performed or refused? (CT, X-rays, U/S, labs)? Why? @ -None What meds were considered but not given or refused? Why? @ -None Did you discuss the management of the patient with other professionals (professionals i.e. , PA, FLASH WELDING MACHINE OPERATOR, lab, RT, psych nurse, social services director, fork truck driver, teacher, commercial account officer, medical case manager)? Give summary @ -No Was smoking cessation discussed for >3mins.? @ -No Was critical care preformed (if so, how long)? @ -No Were there social determinants of health that impacted care today? How? (Homelessness, low income, unemployed, alcoholism, drug addiction, transportation, low edu. Level, literacy, decrease access to med. care, custodial, rehab)? @ -No Was there de-escalation of care discussed even if they declined (Discuss DNR or withdrawal of care, Hospice)? DNR status @ -No What co-morbidities impacted this encounter? (DM, HTN, Smoking, COPD, CAD, Cancer, CVA, ARF, Chemo, Hep., AIDS, mental health diagnosis, sleep apnea, morbid obesity)? @ -None Was patient admitted / discharged? Hospital course, mention meds given and route, prescriptions, significant lab abnormalities, going to OR and other pertinent info. @ -Discharge. 53-year-old female presenting for chronic pain. Patient is well known to the emergency Department stating that she has "pain all over'. Physical examination completed with no acute deficits. Overall, patient is well-appearing in no signs of acute distress. She is provided with pain medication. On reevaluation, states that she is feeling better. Recommend that she does follow-up with primary care provider for continued evaluation. Case discussed with Dr. Pérez Undiagnosed new problem with uncertain prognosis? @ -No Drug Therapy requiring intensive monitoring for toxicity (Heparin, Nitro, Insulin, Cardizem)? @ -No Were any procedures done? @ -No Diagnosis/symptom? @ -back pain, hip pain Acute, or Chronic, or Acute on Chronic? @ -Chronic Uncomplicated (without systemic symptoms) or Complicated (systemic symptoms)? @ -Uncomplicated Side effects of treatment? @ -No Exacerbation, Progression, or Severe Exacerbation? @ -No Poses a threat to life or bodily function? How? (Chest pain, [place], [place], pneumonia, PE, COPD, DKA, ARF, appy, cholecystitis, CVA, Diverticulitis, Homicidal, Suicidal, threat to staff... and all critical care pts) @ -No Disposition Clinical Impression: Chronic back pain Disposition: HOME SELF-CARE Condition: Good Instructions (If sedation given, give patient instructions): Chronic Back Pain (DC) Additional Instructions: Please return to the Emergency Department if symptoms worsen or any other concerns. Is patient prescribed a controlled substance at d/c from ED?: No Referrals: [facility] [Primary Care Provider] - 1-2 days Time of Disposition: 17:00
[2024-04-24] MEDS: HYDROcodone/APAP 7.5-325MG 1 EACH TAB PO ONE (16:35)
[2024-04-24 17:41] VITALS: BP 135/72; PULSE 71; TEMP 98.6
== END 2024-04-24 17:41 | disposition home or self-care (01) ==
LOC: EC 15:15
DX: M54.9 Dorsalgia, unspecified (principal); F17.290 Nicotine dependence, other tobacco product, uncomplicated; Z88.1 Allergy status to other antibiotic agents
CPT/HCPCS: 99283

== ENCOUNTER 2024-04-25 15:37 | Emergency (ER) | payer MEDICARE ==
[2024-04-25 15:57] LABS: Glucose,Whole Blood 542 mg/dL (70-110)
[2024-04-25 15:58] VITALS: RESP 20
--- NOTE | 2024-04-25 16:03 | ED ---
Recheck HPI - General Chief Complaint: Upper Respiratory Infection Stated Complaint: body pain Time Seen by Provider: 04/25/24 15:38 Source: patient, EMS, RN notes reviewed, old records reviewed Mode of arrival: EMS Limitations: no limitations - History of Present Illness Initial Comments: This is a 53-year-old female who presents today for evaluation of not feeling well upper respiratory symptoms cough and congestion sore throat. Patient's well-known to this emergency department ER visit yesterday. Patient states unable to take medications as recently and currently prescribed. No new complaints MD Complaint: abnormal lab (Elevated blood sugar) -: unknown Returns Today for: persistent/worsening pain related to initial visit (Pain) Symptoms Since Prior Visit: worsening pain Context: called for abnormal lab result, ran out of medication Associated Symptoms: shortness of breath, malaise Treatments Prior to Arrival: other - Related Data Home Medications Medication Instructions Recorded Confirmed Atorvastatin [Lipitor] 80 mg PO HS 06/25/19 04/26/24 lisinopriL 40 mg PO DAILY 09/24/20 04/26/24 traZODone HCL 50 mg PO HS 01/11/21 04/26/24 Albuterol Inhaler [Ventolin Hfa 2 puff INHALATION RT-QID PRN 03/01/23 04/26/24 Inhaler] Insulin Glargine,Hum.rec.anlog 30 units SQ HS 07/30/23 04/26/24 [Lantus Solostar Pen] Ezetimibe [Zetia] 10 mg PO HS 02/17/24 04/26/24 Insulin Aspart (Niacinamide) 20 units SQ BID 02/17/24 04/26/24 [Fiasp 100 Unit/ml Flextouch Pen] Nystatin 100,000 Unit/gm Powd 1 applic TOPICAL BID PRN 02/17/24 04/26/24 [Mycostatin Powder] Pantoprazole [Protonix] 40 mg PO DAILY 02/17/24 04/26/24 Tirzepatide [Mounjaro] 2.5 mg SQ FR 04/26/24 04/26/24 Previous Rx's Medication Instructions Recorded amLODIPine [Norvasc] 10 mg PO DAILY #30 tab 03/11/23 hydrALAZINE HCL [Apresoline] 25 mg PO BID #60 tab 03/11/23 Ondansetron Odt [Zofran ODT] 4 mg PO Q8HR PRN #10 tab 03/29/24 Ibuprofen [Motrin] 600 mg PO Q8HR PRN 30 Days #30 tab 04/11/24 Famotidine [Pepcid] 20 mg PO DAILY #20 tablet 04/18/24 Albuterol Inhaler [Ventolin Hfa 1 - 2 puff INHALATION Q6H PRN #1 04/30/24 Inhaler] each Azithromycin [Zithromax] 250 mg PO DAILY 4 Days #4 tab 04/30/24 Allergies Allergy/AdvReac Type Severity Reaction Status Date / Time levofloxacin [From Levaquin] Allergy Rash/Hives Verified 05/03/24 14:18 Review of Systems ROS Statement: Those systems with pertinent positive or pertinent negative responses have been documented in the HPI. ROS Other: All systems not noted in ROS Statement are negative. Past Medical History Past Medical History: Diabetes Mellitus, GERD/Reflux, Hyperlipidemia, Hypertension, Syncope Additional Past Medical History / Comment(s): Pt recently admitted to [facility] on 07/21/21 with uncontrolled IDDM and hyperkalemia. Other hx: Recurrent pancreatitis, hypertriglyceridemia, elevated lipase, IDDM type II, UTI, chronic low back pain, bulging discs, dental abscesses in past. History of Any Multi-Drug Resistant Organisms: MRSA Date of last positivie culture/infection: 03/01/23 MDRO Source:: Abdomen Past Surgical History: Tubal Ligation Additional Past Surgical History / Comment(s): Age 7 had VSD repair, tumor removal 03/2023 Past Anesthesia/Blood Transfusion Reactions: No Reported Reaction Past Psychological History: No Psychological Hx Reported Smoking Status: Former smoker, Second hand smoke exposure, Vaper Past Alcohol Use History: None Reported Past Drug Use History: None Reported - Past Family History Mother Family Medical History: No Reported History Additional Family Medical History / Comment(s): Mother was healthy. She is , pt cannot recall cause of . Father Family Medical History: Pneumonia Additional Family Medical History / Comment(s): Father at the age of 67yrs from pneumonia General Exam Limitations: no limitations General appearance: alert, in no apparent distress Head exam: Present: atraumatic, normocephalic, normal inspection Eye exam: Present: normal appearance, PERRL, EOMI. Absent: scleral icterus, c onjunctival injection, periorbital swelling ENT exam: Present: normal exam, mucous membranes moist Neck exam: Present: normal inspection. Absent: tenderness, meningismus, lymphadenopathy Respiratory exam: Present: normal lung sounds bilaterally. Absent: respiratory distress, wheezes, rales, rhonchi, stridor Cardiovascular Exam: Present: regular rate, normal rhythm, normal heart sounds. Absent: systolic murmur, diastolic murmur, rubs, gallop, clicks GI/Abdominal exam: Present: soft, normal bowel sounds. Absent: distended, tenderness, guarding, rebound, rigid Extremities exam: Present: normal inspection, full ROM, normal capillary refill. Absent: tenderness, pedal edema, joint swelling, calf tenderness Back exam: Present: normal inspection Neurological exam: Present: alert, oriented X3, CN II-XII intact Psychiatric exam: Present: normal affect, normal mood Skin exam: Present: warm, dry, intact, normal color. Absent: rash Course Vital Signs 04/25/24 04/25/24 04/25/24 15:41 15:49 17:46 Temperature 98.4 F 98.1 F Pulse Rate 74 76 Respiratory 20 20 20 Rate Blood Pressure 163/74 156/80 O2 Sat by Pulse 96 97 Oximetry - Reevaluation(s) Reevaluation #1: 04/25/24 16:28 Medical records reviewed Reevaluation #2: 04/25/24 17:09 Symptoms and blood sugars improving Reevaluation #3: 04/25/24 17:09 Patient informed of results and questions answered Reevaluation #4: Was pt. sent in by a medical professional or institution (, PA, BILLING AND INSURANCE COORDINATOR, urgent care, hospital, or assisted...) When possible be specific @ -no Did you speak to anyone other than the patient for history (EMS, parent, family, police, friend...)? What history was obtained from this source @ -no Did you review nursing and triage notes (agree or disagree)? Why? @ -agree Are old charts reviewed (outside hosp., previous admission, EMS record, old EKG, old radiological studies, urgent care reports/EKG's, assisted records)? Report findings @ -yes Differential Diagnosis (chest pain, altered mental status, abdominal pain women, abdominal pain men, vaginal bleeding, weakness, fever, dyspnea, syncope, headache, dizziness, GI bleed, back pain, seizure, CVA, palpatations, mental health, musculoskeletal)? @ -prior EKG interpreted by me (3pts min.). @ -no X-rays interpreted by me (1pt min.). @ -yes negative for acute disease CT interpreted by me (1pt min.). @ -no U/S interpreted by me (1pt. min.). @ -no What testing was considered but not performed or refused? (CT, X-rays, U/S, labs)? Why? @ -none What meds were considered but not given or refused? Why? @ -none Did you discuss the management of the patient with other professionals (professionals i.e. Dr., PA, BILLING AND INSURANCE COORDINATOR, lab, RT, psych nurse, psych social worker, rating officer, teacher, sailing officer, renal case manager)? Give summary @ -no Was smoking cessation discussed for >3mins.? @ -no Was critical care preformed (if so, how long)? @ -no Were there social determinants of health that impacted care today? How? (Homel essness, low income, unemployed, alcoholism, drug addiction, transportation, low edu. Level, literacy, decrease access to med. care, snf, rehab)? @ -none Was there de-escalation of care discussed even if they declined (Discuss DNR or withdrawal of care, Hospice)? DNR status @ -no What co-morbidities impacted this encounter? (DM, HTN, Smoking, COPD, CAD, Cancer, CVA, ARF, Chemo, Hep., AIDS, mental health diagnosis, sleep apnea, morbid obesity)? @ -none Was patient admitted / discharged? Hospital course, mention meds given and route, prescriptions, significant lab abnormalities, going to OR and other pertinent info. @ - 53 female to the ER for evaluation of throat sore throat, upper respiratory symptoms and bodyaches and pains. Patient has no acute findings here in the ER can be discharged home blood sugar improving Discharged Undiagnosed new problem with uncertain prognosis? @ -no Drug Therapy requiring intensive monitoring for toxicity (Heparin, Nitro, Insulin, Cardizem)? @ -no Were any procedures done? @ -no Diagnosis/symptom? @ -Upper respiratory infection chronic pain Acute, or Chronic, or Acute on Chronic? @ -Acute Uncomplicated (without systemic symptoms) or Complicated (systemic symptoms)? @ -Complicated Side effects of treatment? @ -no Exacerbation, Progression, or Severe Exacerbation? @ -exacerbation Poses a threat to life or bodily function? How? (Chest pain, [place], [place], pneumonia, PE, COPD, DKA, ARF, appy, cholecystitis, CVA, Diverticulitis, Homicidal, Suicidal, threat to staff... and all critical care pts) @ -no Reevaluation #5: Differential Weakness: Hypoglycemia, shock, sepsis, hyponatremia, anemia, infection, [place], ETOH, adverse medicine reaction, overdose, stroke, this is not meant to be an all-inclusive list. Medical Decision Making - Medical Decision Making 53 female to the ER for evaluation of throat sore throat, upper respiratory symptoms and bodyaches and pains. Patient has no acute findings here in the ER can be discharged home blood sugar improving - Lab Data Lab Results 04/25/24 04/25/24 04/25/24 Range/Units 15:48 16:05 16:05 POC Glucose (mg/dL) 542 H* (70-110) mg/dL POC Glu Statistical Machine Mechanic ID Abel Riki Urine Color Urine Appearance (Clear) Urine pH (5.0-8.0) Ur Specific [place] (1.001-1.035) Urine Protein (Negative) Urine Glucose (UA) (Negative) Urine Ketones (Negative) Urine Blood (Negative) Urine Nitrite (Negative) Urine Bilirubin (Negative) Urine Urobilinogen (<2.0) mg/dL Ur Leukocyte Esterase (Negative) Urine RBC (0-5) /hpf Urine WBC (0-5) /hpf Ur Squamous Epith Cells (0-4) /hpf Urine Bacteria (None) /hpf Influenza Type A (PCR) Not Detected (Not Detectd) Influenza Type B (PCR) Not Detected (Not Detectd) RSV (PCR) Not Detected (Not Detectd) SARS-CoV-2 (PCR) Not Detected (Not Detectd) Group A Strep (PCR) NOT DETECTED (Not Detectd) 04/25/24 04/25/24 Range/Units 16:14 17:37 POC Glucose (mg/dL) 427 H (70-110) mg/dL POC Glu Statistical Machine Mechanic ID Abel Riki Urine Color Light Yellow Urine Appearance Cloudy H (Clear) Urine pH 6.0 (5.0-8.0) Ur Specific [place] 1.028 (1.001-1.035) Urine Protein 2+ H (Negative) Urine Glucose (UA) 4+ H (Negative) Urine Ketones Negative (Negative) Urine Blood Negative (Negative) Urine Nitrite Negative (Negative) Urine Bilirubin Negative (Negative) Urine Urobilinogen <2.0 (<2.0) mg/dL Ur Leukocyte Esterase Negative (Negative) Urine RBC 2 (0-5) /hpf Urine WBC 2 (0-5) /hpf Ur Squamous Epith Cells 9 H (0-4) /hpf Urine Bacteria Rare H (None) /hpf Influenza Type A (PCR) (Not Detectd) Influenza Type B (PCR) (Not Detectd) RSV (PCR) (Not Detectd) SARS-CoV-2 (PCR) (Not Detectd) Group A Strep (PCR) (Not Detectd) - Radiology Data Radiology results: report reviewed (Chest x-ray is negative for acute disease), image reviewed Disposition Clinical Impression: Weakness, Upper respiratory tract infection, Body aches, Sore throat Disposition: HOME SELF-CARE Condition: Fair Instructions (If sedation given, give patient instructions): Upper Respiratory Infection (ED) Is patient prescribed a controlled substance at d/c from ED?: No Referrals: [facility] [Primary Care Provider] - 1-2 days Time of Disposition: 17:00
[2024-04-25] MEDS: ONDANSETRON 4 MG TAB PO STA (16:10)
[2024-04-25] MEDS: HYDROmorphone 1 MG/ML 1 ML SYRINGE IM STA (16:10)
[2024-04-25] MEDS: INSULIN REGULAR 100 UNIT/ML VIAL (IM/SQ) SQ ONE ×2 (16:10→17:44)
[2024-04-25 16:47] LABS: Influenza A Not Detected (Not Detectd); Influenza B Not Detected (Not Detectd); RSV Not Detected (Not Detectd)
--- NOTE | 2024-04-25 16:51 | XR ---
EXAMINATION TYPE: XR chest 1V portable DATE OF EXAM: 04/25/2024 4:29 PM COMPARISON: Chest radiographs from 04/11/2024 CLINICAL INDICATION: Female, 53 years old with history of cough; TECHNIQUE: XR chest 1V portable Frontal view of the chest. FINDINGS: Lungs/Pleura: There is no evidence of pleural effusion, focal consolidation, or pneumothorax. Pulmonary vascularity: Unremarkable. Heart/mediastinum: Cardiomediastinal silhouette is unremarkable. Musculoskeletal: No acute osseous pathology. IMPRESSION: No acute cardiopulmonary disease/process. [facility] [place], , 04/25/2024 4:49 PM
[2024-04-25 16:53] LABS: Appearance,Urine Cloudy (Clear); Bacteria,Urine Rare /hpf; Bilirubin,Urine Negative (Negative); Blood,Urine Negative (Negative); Color,Urine Light Yellow; Glucose,Urine (UA) 4+ (Negative); Ketones,Urine Negative (Negative); Leukocyte Esterase,Urine Negative (Negative); Nitrite,Urine Negative (Negative); Protein,Urine 2+ (Negative); RBC,Urine 2 /hpf (0-5); Specific Gravity,Urine 1.028 (1.001-1.035); Squamous Epithelial Cell,Urine 9 /hpf (0-4); Urobilinogen,Urine <2.0 mg/dL (<2.0); WBC,Urine 2 /hpf (0-5)
[2024-04-25 17:38] LABS: Glucose,Whole Blood 427 mg/dL (70-110)
[2024-04-25 17:49] VITALS: BP 156/80; PULSE 76; TEMP 98.1
== END 2024-04-25 17:49 | disposition home or self-care (01) ==
LOC: EC 15:37
DX: R53.1 Weakness (principal); J06.9 Acute upper respiratory infection, unspecified; M54.50 Low back pain, unspecified; J02.9 Acute pharyngitis, unspecified; F17.290 Nicotine dependence, other tobacco product, uncomplicated; Z88.1 Allergy status to other antibiotic agents
CPT/HCPCS: 36415; 87651; 81001; 87636; 71045; 99284; 96372; J1171

== ENCOUNTER 2024-04-26 17:28 | Observation (INO) | payer MEDICARE ==
--- NOTE | 2024-04-26 17:36 | ED ---
Recheck HPI - General Stated Complaint: Vomiting Time Seen by Provider: 04/26/24 17:32 Source: RN notes reviewed, old records reviewed Mode of arrival: EMS Limitations: no limitations - History of Present Illness Initial Comments: This is a 53-year-old female well-known to this emergency department. Patient has multiple ER visits lately as well as recently for weakness and uncontrolled blood sugars. Patient blood sugar significantly weighted again today with complaints of cough congestion diminished appetite and increased stress MD Complaint: abnormal lab (Blood sugar), other ( nausea vomiting cough) -: days(s) Returns Today for: Called Because of Abnormal Lab/Test Symptoms Since Prior Visit: worsening pain (Denies pain) Associated Symptoms: shortness of breath, malaise, nausea Treatments Prior to Arrival: other - Related Data Home Medications Medication Instructions Recorded Confirmed Atorvastatin [Lipitor] 80 mg PO HS 06/25/19 02/17/24 lisinopriL 40 mg PO DAILY 09/24/20 02/17/24 traZODone HCL 50 mg PO HS 01/11/21 02/17/24 INSULIN ASPART (NovoLOG) [NovoLOG 20 unit SQ AC-TID 11/26/22 02/17/24 (formulary)] Albuterol Inhaler [Ventolin Hfa 2 puff INHALATION RT-QID PRN 03/01/23 02/17/24 Inhaler] Insulin Glargine,Hum.rec.anlog 30 units SQ DAILY 07/30/23 02/17/24 [Lantus Solostar Pen] Dulaglutide [Trulicity] 1.5 mg SQ DIRECTED 02/17/24 02/17/24 Ezetimibe [Zetia] 10 mg PO HS 02/17/24 02/17/24 Insulin Aspart (Niacinamide) 8 units SQ DIRECTED 02/17/24 02/17/24 [Fiasp 100 Unit/ml Flextouch Pen] Nystatin 100,000 Unit/gm Powd 1 applic TOPICAL BID PRN 02/17/24 02/17/24 [Mycostatin Powder] Pantoprazole [Protonix] 40 mg PO DAILY 02/17/24 02/17/24 metFORMIN HCL [Glucophage] 500 mg PO BID 02/17/24 02/17/24 Previous Rx's Medication Instructions Recorded amLODIPine [Norvasc] 10 mg PO DAILY #30 tab 03/11/23 hydrALAZINE HCL [Apresoline] 25 mg PO BID #60 tab 03/11/23 Mupirocin 2% Oint [Bactroban 2% 1 applic TOPICAL TID #22 gm 02/17/24 Oint] Ondansetron Odt [Zofran Odt] 4 mg PO Q8HR PRN #10 tab 02/17/24 Sulfamethox-Tmp 800-160Mg [Bactrim 2 tab PO Q12HR #28 tab 02/17/24 DS 800-160 mg] Dicyclomine [Bentyl] 20 mg PO QID #15 tablet 03/15/24 Ondansetron Odt [Zofran Odt] 4 mg PO Q8HR PRN #10 tab 03/29/24 Benzonatate [Tessalon Perles] 100 mg PO TID PRN #9 capsule 04/06/24 Ibuprofen [Motrin] 600 mg PO Q8HR PRN 30 Days #30 tab 04/11/24 Famotidine [Pepcid] 20 mg PO DAILY #20 tablet 04/18/24 Mag Hydrox/Al Hydrox/Simeth 10 ml PO QID PRN #1 unit 04/18/24 [Maalox] Lidocaine 4% Patch 1 patch TOPICAL DAILY 4 Days #4 04/20/24 patch Allergies Allergy/AdvReac Type Severity Reaction Status Date / Time levofloxacin [From Levaquin] Allergy Rash/Hives Verified 04/26/24 17:42 Review of Systems ROS Statement: Those systems with pertinent positive or pertinent negative responses have been documented in the HPI. ROS Other: All systems not noted in ROS Statement are negative. Past Medical History Past Medical History: Diabetes Mellitus, GERD/Reflux, Hyperlipidemia, Hypertension, Syncope Additional Past Medical History / Comment(s): Pt recently admitted to [facility] on 07/21/21 with uncontrolled IDDM and hyperkalemia. Other hx: Recurrent pancreatitis, hypertriglyceridemia, elevated lipase, IDDM type II, UTI, chronic low back pain, bulging discs, dental abscesses in past. History of Any Multi-Drug Resistant Organisms: MRSA Date of last positivie culture/infection: 03/01/23 MDRO Source:: Abdomen Past Surgical History: Tubal Ligation Additional Past Surgical History / Comment(s): Age 7 had VSD repair, tumor removal 03/2023 Past Anesthesia/Blood Transfusion Reactions: No Reported Reaction Past Psychological History: No Psychological Hx Reported Smoking Status: Former smoker, Second hand smoke exposure, Vaper Past Alcohol Use History: None Reported Past Drug Use History: None Reported - Past Family History Mother Family Medical History: No Reported History Additional Family Medical History / Comment(s): Mother was healthy. She is , pt cannot recall cause of . Father Family Medical History: Pneumonia Additional Family Medical History / Comment(s): Father at the age of 67yrs from pneumonia General Exam General appearance: alert, in no apparent distress Head exam: Present: atraumatic, normocephalic, normal inspection Eye exam: Present: normal appearance, PERRL, EOMI. Absent: scleral icterus, conjunctival injection, periorbital swelling ENT exam: Present: normal exam, mucous membranes moist Neck exam: Present: normal inspection. Absent: tenderness, meningismus, lymphadenopathy Respiratory exam: Present: normal lung sounds bilaterally. Absent: respiratory distress, wheezes, rales, rhonchi, stridor Cardiovascular Exam: Present: regular rate, normal rhythm, normal heart sounds. Absent: systolic murmur, diastolic murmur, rubs, gallop, clicks GI/Abdominal exam: Present: soft, normal bowel sounds. Absent: distended, tenderness, guarding, rebound, rigid Extremities exam: Present: normal inspection, full ROM, normal capillary refill. Absent: tenderness, pedal edema, joint swelling, calf tenderness Back exam: Present: normal inspection Neurological exam: Present: alert, oriented X3, CN II-XII intact Psychiatric exam: Present: normal affect, normal mood Skin exam: Present: warm, dry, intact, normal color. Absent: rash Course Vital Signs 04/26/24 17:37 Temperature 99.7 F H Pulse Rate 64 Respiratory 18 Rate Blood Pressure 165/67 O2 Sat by Pulse 96 Oximetry - Reevaluation(s) Reevaluation #1: 04/26/24 17:57 Medical records reviewed Reevaluation #2: 04/26/24 18:33 Showing no significant improvement here in the ER blood sugar improved Reevaluation #3: 04/26/24 18:33 Patient informed of results questions answered Reevaluation #4: Was pt. sent in by a medical professional or institution (, PA, NAILHEAD OPERATOR, urgent care, hospital, or senior living...) When possible be specific @ -no Did you speak to anyone other than the patient for history (EMS, parent, family, police, friend...)? What history was obtained from this source @ -no Did you review nursing and triage notes (agree or disagree)? Why? @ -agree Are old charts reviewed (outside hosp., previous admission, EMS record, old EKG, old radiological studies, urgent care reports/EKG's, senior living records)? Report findings @ -yes Differential Diagnosis (chest pain, altered mental status, abdominal pain women, abdominal pain men, vaginal bleeding, weakness, fever, dyspnea, syncope, headache, dizziness, GI bleed, back pain, seizure, CVA, palpatations, mental health, musculoskeletal)? @ -prior EKG interpreted by me (3pts min.). @ -yes X-rays interpreted by me (1pt min.). @ -yes negative for acute disease CT interpreted by me (1pt min.). @ -no U/S interpreted by me (1pt. min.). @ -no What testing was considered but not performed or refused? (CT, X-rays, U/S, labs)? Why? @ -none What meds were considered but not given or refused? Why? @ -none Did you discuss the management of the patient with other professionals (professionals i.e. , PA, NAILHEAD OPERATOR, lab, RT, psych nurse, delinquency prevention social worker, piano mechanic, teacher, chief environmental commitment officer, casework manager)? Give summary @ -no Was smoking cessation discussed for >3mins.? @ -no Was critical care preformed (if so, how long)? @ -no Were there social determinants of health that impacted care today? How? (Homelessness, low income, unemployed, alcoholism, drug addiction, transportation, low edu. Level, literacy, decrease access to med. care, prison, rehab)? @ -none Was there de-escalation of care discussed even if they declined (Discuss DNR or withdrawal of care, Hospice)? DNR status @ -no What co-morbidities impacted this encounter? (DM, HTN, Smoking, COPD, CAD, Cancer, CVA, ARF, Chemo, Hep., AIDS, mental health diagnosis, sleep apnea, morbid obesity)? @ -none Was patient admitted / discharged? Hospital course, mention meds given and route, prescriptions, significant lab abnormalities, going to OR and other pertinent info. @ - Undiagnosed new problem with uncertain prognosis? @ -no Drug Therapy requiring intensive monitoring for toxicity (Heparin, Nitro, Insulin, Cardizem)? @ -no Were any procedures done? @ -no Diagnosis/symptom? @ - Acute, or Chronic, or Acute on Chronic? @ -Acute Uncomplicated (without systemic symptoms) or Complicated (systemic symptoms)? @ -Complicated Side effects of treatment? @ -no Exacerbation, Progression, or Severe Exacerbation? @ -exacerbation Poses a threat to life or bodily function? How? (Chest pain, USA, ME, pneumonia, PE, COPD, DKA, ARF, appy, cholecystitis, CVA, Diverticulitis, Homicidal, Suicidal, threat to staff... and all critical care pts) @ -yes Reevaluation #5: Differential Weakness: Hypoglycemia, shock, sepsis, hyponatremia, anemia, infection, ME, ETOH, adverse medicine reaction, overdose, stroke, this is not meant to be an all-inclusive list. - Consultations Consultation #1: Spoke with sound who agrees to admit this patient Medical Decision Making - Medical Decision Making 53 female to ER for evaluation with recent uptake and ER visits, concern for living situation and mental health. Patient does not appear to be taking care of herself increased blood sugar lately with again multiple ER visits for similar complaints - EKG Data -: EKG Interpreted by Me (EKG is sinus 67 IL 133 QRS 85 QTc 429) - Radiology Data Radiology results: report reviewed (Chest x-ray is negative for acute disease), image reviewed Disposition Clinical Impression: Acute vomiting, Dehydration, Nausea & vomiting, Weakness, Hyperglycemia, Depression Disposition: ADMITTED IP TO THIS HOSP Condition: Fair Referrals: [facility] [Primary Care Provider] - 1-2 days Time of Disposition: 18:30
[2024-04-26] MEDS ORDERED: ONDANSETRON 4 MG/2 ML VIAL IVP PRN (18:31)
[2024-04-26] MEDS ORDERED: NALOXONE 0.4 MG/ML 1 ML VIAL IV PRN (18:31)
--- NOTE | 2024-04-26 18:58 | XR ---
EXAMINATION TYPE: XR chest 1V portable DATE OF EXAM: 04/26/2024 6:15 PM COMPARISON: Chest radiographs from 04/25/2024 CLINICAL INDICATION: Female, 53 years old with history of cough; [facility] TECHNIQUE: XR chest 1V portable Frontal view of the chest. FINDINGS: Lungs/Pleura: There is no evidence of pleural effusion, focal consolidation, or pneumothorax. Pulmonary vascularity: Pulmonary vascular congestion. Heart/mediastinum: Cardiomediastinal silhouette is enlarged. Left atrial appendage occlusion device i s present. Musculoskeletal: No acute osseous pathology. IMPRESSION: Cardiomegaly and mild pulmonary vascular congestion. Correlate with BNP for congestive heart failure. [facility], , 04/26/2024 6:56 PM
[2024-04-26 19:44] LABS: Appearance,Urine Clear (Clear); Bilirubin,Urine Negative (Negative); Blood,Urine Negative (Negative); Color,Urine Colorless; Glucose,Urine (UA) 4+ (Negative); Ketones,Urine Negative (Negative); Leukocyte Esterase,Urine Negative (Negative); Mucus,Urine Rare /hpf; Nitrite,Urine Negative (Negative); Protein,Urine 1+ (Negative); RBC,Urine <1 /hpf (0-5); Squamous Epithelial Cell,Urine 1 /hpf (0-4); Urobilinogen,Urine <2.0 mg/dL (<2.0); WBC,Urine 1 /hpf (0-5)
[2024-04-26 20:02] LABS: Anisocytosis Slight; Basophils % (A) 0 %; Eosinophils # (A) 0.3 k/uL (0-0.7); Eosinophils % (A) 3 %; HCT 35.4 % (34.0-46.0); HGB 11.9 gm/dL (11.4-16.0); Lymphocytes # (A) 3.1 k/uL (1.0-4.8); Lymphocytes % (A) 29 %; MCHC 33.5 g/dL (31.0-37.0); MCV 80.8 fL (80.0-100.0); Mean Platelet Volume 7.9; Microcytosis Slight; Monocytes # (A) 0.5 k/uL (0-1.0); Monocytes % (A) 4 %; Neutrophils # (A) 6.6 k/uL (1.3-7.7); Neutrophils % (A) 62 %; Platelet Count 462 k/uL (150-450); RBC 4.39 m/uL (3.80-5.40); RDW 16.4 % (11.5-15.5); WBC 10.6 k/uL (3.8-10.6)
[2024-04-26 20:14] LABS: INR 0.9 (<1.2); Partial Thromboplastin Time 22.1 sec (22.0-30.0); Prothrombin Time 10.2 sec (10.0-12.5)
[2024-04-26 20:16] LABS: Influenza A Not Detected (Not Detectd); Influenza B Not Detected (Not Detectd); RSV Not Detected (Not Detectd)
[2024-04-26 20:23] LABS: ALT 18 U/L (4-34); African American GFR (CKD) >90 (>60 ml/min/1.73 sqM); Albumin 3.6 g/dL (3.5-5.0); Anion Gap 13 mmol/L; Blood Urea Nitrogen 16 mg/dL (7-17); Calcium 8.8 mg/dL (8.4-10.2); Carbon Dioxide 20 mmol/L (22-30); Chloride 98 mmol/L (98-107); Glucose 335 mg/dL (74-99); Lipase 164 U/L (23-300); Non-African American GFR(CKD) >90 (>60 ml/min/1.73 sqM); Sodium 131 mmol/L (137-145); Total Protein 6.9 g/dL (6.3-8.2)
[2024-04-26 20:25] LABS: Magnesium 1.5 mg/dL (1.6-2.3); Phosphorus 3.9 mg/dL (2.5-4.5); Potassium 5.2 mmol/L (3.5-5.1); Total Bilirubin 0.8 mg/dL (0.2-1.3)
[2024-04-26 20:26] LABS: AST 44 U/L (14-36); Alkaline Phosphatase 85 U/L (38-126)
[2024-04-26 20:29] LABS: NT-Pro-B-Type Natriuretic Pept 56 pg/mL
[2024-04-26] MEDS: SODIUM CHLORIDE 0.9% 1,000 ML IV STA ×2 (20:35→23:14)
[2024-04-26] MEDS: MORPHINE SULFATE 4 MG/ML SYRINGE IV STA (20:37)
[2024-04-26] MEDS: ONDANSETRON 4 MG/2 ML VIAL IVP STA (20:37)
--- NOTE | 2024-04-26 21:58 | P.HPIM ---
History of Present Illness H&P Date: 04/26/24 Patient is a 53-year-old female with past medical history of diabetes (on Lantus, Fiasp, Glucophage, and Mounjaro), hypertension, hyperlipidemia who presents to the ED with chief complaint of weakness. Patient states she was in her usual state of health until this morning, she began having chest pain, coughing clear phlegm, runny nose, sore throat. Patient also reports bandlike abdominal pain rated at 10 out of 10. Patient reports that she is compliant with all her medications including her insulins, which are 30 units of Lantus and 20 units of NovoLog with meals. Patient states last A1c was over a year ago. She states that she has had a lack of appetite and only ate vegetable soup today. She denies shortness of breath, nausea, vomiting, diarrhea, fevers, chills, headaches, or vision changes. Vitals on admission temperature 99.7, heart rate 64, respiratory rate 18, blood pressure 165/67, O2 saturation 96% on room air EKG independently interpreted as sinus rhythm with occasional PVCs, rate of 67 bpm and QTc of 429 ms CXR shows cardiomegaly and mild pulmonary vascular congestion Labs on admission show WBCs 10.6, hemoglobin 11.9, platelets 462. PT 10.2, INR 0.9, PTT 22.1. Sodium 131, potassium 5.2, chloride 98, bicarb 20, BUN 16, creatinine 0.64, glucose 335. Calcium 8.8. Phosphorus 3.9. Magnesium 1.5. Troponin negative. Lipase 164. UA shows 1+ protein, 4+ glucose without keton es. Cepheid panel negative. Review of systems: Pertinent positives and negatives as discussed in HPI, a complete review of systems was performed and all other systems are negative. Social history: Tobacco: Quit last year, formally half pack a day Alcohol: None Recreational drugs: None Travel: None Sick contacts: None Physical examination: Vital signs reviewed General: nontoxic, no distress, appears at stated age Derm: warm, dry, intact Head: atraumatic, normocephalic, symmetric Eyes: anicteric sclera Mouth: no lip lesion, mucus membranes moist Cardiovascular: S1 S2 reg, no murmur Lungs: CTA bilateral, no rhonchi, no rales, no accessory muscle use Abdominal: soft, nondistended, bandlike tenderness to palpation in lower quadrant, no rebounding or guarding Extremities: No cyanosis, clubbing, or pedal edema. Neuro: Alert, Oriented to person, time and place, Gross neurological examination did not reveal any focal deficits. Cranial nerves II to XII grossly intact. Bilateral upper and lower extremity muscle strength intact and sensation intact. Psych: well appearing, appropriate affect Assessment/Plan: Patient is a 53-year-old female with past medical history of diabetes, hypertension, hyperlipidemia who presented with chief complaint of weakness and hyperglycemia. Case discussed with ED physician and patient will be admitted to internal medicine service for further evaluation. Active: Hyperglycemia in insulin dependent diabetic, likely due to medication noncompliance Accu-Cheks per ACHS Moderate insulin sliding scale Hypoglycemia precautions Follow-up A1c Will hold metformin Hyponatremia, hyperkalemia, likely secondary to above Continue to monitor Continue IV fluids Lactic acidosis, likely due to dehydration Continue to monitor Continue IV fluids Hypomagnesemia Will replete per protocol Continue to monitor Chronic: Hypertension Continue amlodipine 10 mg daily Continue hydralazine 25 mg twice daily Continue lisinopril 40 mg daily Hyperlipidemia Continue Lipitor 80 mg p.o. at bedtime Continue Zetia 10 mg p.o. at bedtime GERD Continue Protonix 40 mg daily F: 0.9% NS at 130 mL/h E: Replete as needed N: Consistent carb A: As tolerated DVT prophylaxis: Lovenox 40 mg subcu daily The patient is admitted with an anticipated more than 2 midnight stay for evaluation of weakness and hyperglycemia CODE STATUS: FULL CODE Discussed with: Patient Anticipated discharge place: Pending clinical course Past Medical History Past Medical History: Diabetes Mellitus, GERD/Reflux, Hyperlipidemia, Hypertension, Syncope Additional Past Medical History / Comment(s): Pt recently admitted to [facility] on 07/21/21 with uncontrolled IDDM and hyperkalemia. Other hx: Recurrent pancreatitis, hypertriglyceridemia, elevated lipase, IDDM type II, UTI, chronic low back pain, bulging discs, dental abscesses in past. History of Any Multi-Drug Resistant Organisms: MRSA Date of last positivie culture/infection: 03/01/23 MDRO Source:: Abdomen Past Surgical History: Tubal Ligation Additional Past Surgical History / Comment(s): Age 7 had VSD repair, tumor removal 03/2023 Past Anesthesia/Blood Transfusion Reactions: No Reported Reaction Past Psychological History: No Psychological Hx Reported Smoking Status: Former smoker, Second hand smoke exposure, Vaper Past Alcohol Use History: None Reported Past Drug Use History: None Reported - Past Family History Mother Family Medical History: No Reported History Additional Family Medical History / Comment(s): Mother was healthy. She is , pt cannot recall cause of . Father Family Medical History: Pneumonia Additional Family Medical History / Comment(s): Father at the age of 67yrs from pneumonia Medications and Allergies Home Medications Medication Instructions Recorded Confirmed Type Atorvastatin [Lipitor] 80 mg PO HS 06/25/19 04/26/24 History lisinopriL 40 mg PO DAILY 09/24/20 04/26/24 History traZODone HCL 50 mg PO HS 01/11/21 04/26/24 History Albuterol Inhaler [Ventolin Hfa 2 puff INHALATION RT-QID PRN 03/01/23 04/26/24 History Inhaler] amLODIPine [Norvasc] 10 mg PO DAILY #30 tab 03/11/23 04/26/24 Rx hydrALAZINE HCL [Apresoline] 25 mg PO BID #60 tab 03/11/23 04/26/24 Rx Insulin Glargine,Hum.rec.anlog 30 units SQ HS 07/30/23 04/26/24 History [Lantus Solostar Pen] Ezetimibe [Zetia] 10 mg PO HS 02/17/24 04/26/24 History Insulin Aspart (Niacinamide) 20 units SQ BID 02/17/24 04/26/24 History [Fiasp 100 Unit/ml Flextouch Pen] Nystatin 100,000 Unit/gm Powd 1 applic TOPICAL BID PRN 02/17/24 04/26/24 History [Mycostatin Powder] Pantoprazole [Protonix] 40 mg PO DAILY 02/17/24 04/26/24 History Ondansetron Odt [Zofran Odt] 4 mg PO Q8HR PRN #10 tab 03/29/24 04/26/24 Rx Ibuprofen [Motrin] 600 mg PO Q8HR PRN 30 Days #30 tab 04/11/24 04/26/24 Rx Famotidine [Pepcid] 20 mg PO DAILY #20 tablet 04/18/24 04/26/24 Rx Tirzepatide [Mounjaro] 2.5 mg SQ FR 04/26/24 04/26/24 History metFORMIN HCL [Glucophage] 1,000 mg PO BID-W/MEALS 04/26/24 04/26/24 History Allergies Allergy/AdvReac Type Severity Reaction Status Date / Time levofloxacin [From Levaquin] Allergy Rash/Hives Verified 04/26/24 19:02 Physical Exam Vitals: Vital Signs Temp Pulse Resp BP Pulse Ox 04/26/24 17:37 99.7 F H 64 18 165/67 96 Intake and Output 04/26/24 04/26/24 04/26/24 06:59 14:59 22:59 Other: Weight 81.647 kg Results CBC & Chem 7: 04/26/24 19:50 04/26/24 19:50 Labs: Abnormal Lab Results - Last 24 Hours (Table) 04/26/24 04/26/24 Range/Units 19:31 19:50 RDW 16.4 H (11.5-15.5) % Plt Count 462 H (150-450) k/uL Urine Protein 1+ H (Negative) Urine Glucose (UA) 4+ H (Negative) Urine Mucus Rare H (None) /hpf
[2024-04-26] MEDS: SODIUM CHLORIDE 0.9% 1,000 ML IV SCH (23:15)
[2024-04-27] MEDS: MORPHINE SULFATE 4 MG/ML SYRINGE IV PRN (00:51)
[2024-04-27] MEDS ORDERED: DEXTROSE 50% SYRINGE 50 ML IVP PRN ×2 (02:34)
[2024-04-27] MEDS ORDERED: Magnesium Replacement Protocol 1 EACH MISC MISCELLANE PRN (02:37)
[2024-04-27 03:00] LABS: Anisocytosis Slight; Basophils # (A) 0.1 k/uL (0-0.2); Basophils % (A) 1 %; Eosinophils # (A) 0.4 k/uL (0-0.7); Eosinophils % (A) 4 %; HCT 37.1 % (34.0-46.0); HGB 12.1 gm/dL (11.4-16.0); Hypochromasia Slight; Lymphocytes % (A) 34 %; MCH 27.6 pg (25.0-35.0); MCHC 32.5 g/dL (31.0-37.0); MCV 84.7 fL (80.0-100.0); Mean Platelet Volume 7.3; Monocytes # (A) 0.4 k/uL (0-1.0); Monocytes % (A) 4 %; Neutrophils # (A) 4.8 k/uL (1.3-7.7); Neutrophils % (A) 55 %; Platelet Count 418 k/uL (150-450); RBC 4.39 m/uL (3.80-5.40); RDW 16.4 % (11.5-15.5); WBC 8.8 k/uL (3.8-10.6)
[2024-04-27 03:16] LABS: ALT 15 U/L (4-34); AST 22 U/L (14-36); African American GFR (CKD) >90 (>60 ml/min/1.73 sqM); Albumin/Globulin Ratio 1.1; Alkaline Phosphatase 98 U/L (38-126); Anion Gap 10 mmol/L; Blood Urea Nitrogen 13 mg/dL (7-17); Calcium 8.5 mg/dL (8.4-10.2); Carbon Dioxide 22 mmol/L (22-30); Chloride 101 mmol/L (98-107); Globulin 2.8 g/dL; Glucose 265 mg/dL (74-99); Magnesium 1.3 mg/dL (1.6-2.3); Non-African American GFR(CKD) >90 (>60 ml/min/1.73 sqM); Phosphorus 3.9 mg/dL (2.5-4.5); Potassium 3.6 mmol/L (3.5-5.1); Sodium 133 mmol/L (137-145); Total Bilirubin 0.3 mg/dL (0.2-1.3); Total Protein 5.8 g/dL (6.3-8.2)
[2024-04-27] MEDS: MAGNESIUM SULFATE-D5W PMX 1 GM in DEXTROSE/WATER 1 100ML.BAG IVPB SCH (03:37)
[2024-04-27 06:09] LABS: Glucose,Whole Blood 199 mg/dL (70-110)
[2024-04-27] MEDS: INSULIN ASPART (NovoLOG) 100 UNIT/ML VIAL SQ SCH ×2 (06:16→17:43)
[2024-04-27] MEDS: amLODIPine 10 MG TAB PO SCH (09:11)
[2024-04-27] MEDS: lisinopriL 20 MG TAB PO SCH (09:11)
[2024-04-27] MEDS: hydrALAZINE HCL 25 MG TAB PO SCH (09:11)
[2024-04-27] MEDS: ENOXAPARIN 40 MG/0.4 ML SYRINGE SQ SCH (09:11)
[2024-04-27] MEDS: PANTOPRAZOLE 40 MG TABLET PO SCH (09:12)
[2024-04-27] MEDS: MAGNESIUM SULFATE-D5W PMX 1 GM in DEXTROSE/WATER 1 100ML.BAG IVPB ONE (09:12)
[2024-04-27] MEDS ORDERED: ALBUTEROL HFA INHALER INHALATION PRN (11:51)
[2024-04-27 12:18] LABS: Glucose,Whole Blood 284 mg/dL (70-110)
[2024-04-27] MEDS: LIDOCAINE 4% PATCH TOPICAL SCH (14:08)
--- NOTE | 2024-04-27 16:23 | P.PN ---
Subjective Progress Note Date: 04/27/24 Hospital course: Patient is a 53-year-old female with past medical history of diabetes (on Lantus, Fiasp, Glucophage, and Mounjaro), hypertension, hyperlipidemia who presents to the ED with chief complaint of weakness. Patient states she was in her usual state of health until this morning, she began having chest pain, coughing clear phlegm, runny nose, sore throat. Patient also reports bandlike abdominal pain rated at 10 out of 10. Patient reports that she is compliant with all her medications including her insulins, which are 30 units of Lantus and 20 units of NovoLog with meals. Patient states last A1c was over a year ago. She states that she has had a lack of appetite and only ate vegetable soup today. She denies shortness of breath, nausea, vomiting, diarrhea, fevers, chills, headaches, or vision changes. Vitals on admission temperature 99.7, heart rate 64, respiratory rate 18, blood pressure 165/67, O2 saturation 96% on room air EKG independently interpreted as sinus rhythm with occasional PVCs, rate of 67 bpm and QTc of 429 ms CXR shows cardiomegaly and mild pulmonary vascular congestion Labs on admission show WBCs 10.6, hemoglobin 11.9, platelets 462. PT 10.2, INR 0.9, PTT 22.1. Sodium 131, potassium 5.2, chloride 98, bicarb 20, BUN 16, creatinine 0.64, glucose 335. Calcium 8.8. Phosphorus 3.9. Magnesium 1.5. Troponin negative. Lipase 164. UA shows 1+ protein, 4+ glucose without ketones. Cepheid panel negative. Subjective: 04/27/2024: Patient seen and examined at bedside. No acute events overnight. Complaint of left shoulder pain. Pertinent positives and negatives as discussed above, a complete review of systems was performed and all other systems are negative. Vitals: Signs Reviewed Physical Exam: General: nontoxic, no distress, appears at stated age Derm: warm, dry, intact Head: atraumatic, normocephalic, symmetric Eyes: EOMI, anicteric sclera Mouth: no lip lesion, mucus membranes moist Cardiovascular: S1 S2 reg, no murmur, rubs, or gallops Lungs: CTA bilateral, no rhonchi, no rales, no accessory muscle use Abdominal: soft, non-tender to palpataion, no appreciable organomegaly Extremities: no gross muscle atrophy, no edema, no contractures Neuro: Alert, Oriented, CNII-XII grossly intact, gait normal Psych: well appearing, appropriate affect Data Received Today: Pertinent labs: Sodium 133, potassium 3.6, glucose range [id number] New imaging: N/A Assessment/plan: Patient is a 53-year-old female with past medical history of diabetes, hypertension, hyperlipidemia who presented with chief complaint of weakness and hyperglycemia. Active: Hyperglycemia in insulin dependent diabetic, likely due to medication noncompliance Accu-Cheks per ACHS Low insulin sliding scale Levemir 30 units SQ at bedtime Insulin aspart 20 units SQ AC-BID Hypoglycemia precautions Follow-up A1c Will hold metformin Hyponatremia, likely secondary to above, improving Continue to monitor Continue IV fluids normal saline at 130 cc/hr Lactic acidosis, likely due to dehydration Lactic, glucose 284 => 2.7 Continue IV fluids Hypomagnesemia Mg 1.3 2 g given for replacement Continue to monitor Left shoulder pain Acetaminophen 650 mg every 6 hours as needed Lidocaine patch ordered Chronic: Hypertension Continue amlodipine 10 mg daily Continue hydralazine 25 mg twice daily Continue lisinopril 40 mg daily Hyperlipidemia Continue Lipitor 80 mg p.o. at bedtime Continue Zetia 10 mg p.o. at bedtime GERD Continue Protonix 40 mg daily Resolved: Hyperkalemia F: 0.9% NS at 130 mL/h E: Replete as needed N: Consistent carb A: As tolerated DVT prophylaxis: Lovenox 40 mg subcu daily Code status: Full code Anticipated discharge place: Pending clinical course Anticipated discharge time: Pending clinical course Rajan aFrley MD PGY-1 IM Dictation was produced using [employer] dictation software. please excuse any grammatical, word or spelling errors. I have seen and evaluated the patient today. Discussed with the resident and agree with the residents finding and plan as documented in the resident's note. Changes highlighted in blue font. Objective - Vital Signs Vital signs: Vital Signs Temp 98.0 F 04/27/24 07:00 Pulse 51 L 04/27/24 07:00 Resp 15 04/27/24 07:00 BP 126/62 04/27/24 07:00 Pulse Ox 97 04/27/24 07:00 FiO2 Intake & Output 04/26/24 04/27/24 04/27/24 18:59 06:59 18:59 Weight 81.647 kg 81.647 kg Other: # Voids 2 - Labs CBC & Chem 7: 04/27/24 02:42 04/27/24 02:42 Labs: Abnormal Lab Results - Last 24 Hours (Table) 04/26/24 04/26/24 04/26/24 Range/Units 19:31 19:50 19:50 RDW 16.4 H (11.5-15.5) % Plt Count 462 H (150-450) k/uL Sodium 131 L (137-145) mmol/L Potassium 5.2 H (3.5-5.1) mmol/L Carbon Dioxide 20 L (22-30) mmol/L Glucose 335 H (74-99) mg/dL POC Glucose (mg/dL) (70-110) mg/dL Plasma Lactic Acid Travon (0.7-2.0) mmol/L Magnesium 1.5 L (1.6-2.3) mg/dL AST 44 H (14-36) U/L Total Protein (6.3-8.2) g/dL Albumin (3.5-5.0) g/dL Urine Protein 1+ H (Negative) Urine Glucose (UA) 4+ H (Negative) Urine Mucus Rare H (None) /hpf 04/26/24 04/26/24 04/27/24 Range/Units 19:50 22:51 02:42 RDW 16.4 H (11.5-15.5) % Plt Count (150-450) k/uL Sodium (137-145) mmol/L Potassium (3.5-5.1) mmol/L Carbon Dioxide (22-30) mmol/L Glucose (74-99) mg/dL POC Glucose (mg/dL) (70-110) mg/dL Plasma Lactic Acid Travon 3.4 H* 2.8 H* (0.7-2.0) mmol/L Magnesium (1.6-2.3) mg/dL AST (14-36) U/L Total Protein (6.3-8.2) g/dL Albumin (3.5-5.0) g/dL Urine Protein (Negative) Urine Glucose (UA) (Negative) Urine Mucus (None) /hpf 04/27/24 04/27/24 04/27/24 Range/Units 02:42 02:42 06:08 RDW (11.5-15.5) % Plt Count (150-450) k/uL Sodium 133 L (137-145) mmol/L Potassium (3.5-5.1) mmol/L Carbon Dioxide (22-30) mmol/L Glucose 265 H (74-99) mg/dL POC Glucose (mg/dL) 199 H (70-110) mg/dL Plasma Lactic Acid Travon 3.5 H* (0.7-2.0) mmol/L Magnesium 1.3 L (1.6-2.3) mg/dL AST (14-36) U/L Total Protein 5.8 L (6.3-8.2) g/dL Albumin 3.0 L (3.5-5.0) g/dL Urine Protein (Negative) Urine Glucose (UA) (Negative) Urine Mucus (None) /hpf
[2024-04-27 17:30] LABS: Glucose,Whole Blood 315 mg/dL (70-110)
[2024-04-27] MEDS: ACETAMINOPHEN TAB 325 MG TAB PO PRN (17:45)
[2024-04-27 20:32] LABS: Glucose,Whole Blood 291 mg/dL (70-110)
[2024-04-27] MEDS: EZETIMIBE 10 MG TAB PO SCH (20:44)
[2024-04-27] MEDS: INSULIN DETEMIR (LEVEMIR) 100 UNIT/ML SYR SQ SCH (20:44)
[2024-04-27] MEDS: ATORVASTATIN 80 MG TAB PO SCH (20:44)
[2024-04-28 04:10] VITALS: RESP 16
[2024-04-28 06:27] LABS: Glucose,Whole Blood 210 mg/dL (70-110)
[2024-04-28 07:33] LABS: Anisocytosis Slight; Basophils % (A) 1 %; Eosinophils # (A) 0.3 k/uL (0-0.7); Eosinophils % (A) 4 %; HCT 36.1 % (34.0-46.0); HGB 11.5 gm/dL (11.4-16.0); Hypochromasia Slight; Lymphocytes # (A) 2.4 k/uL (1.0-4.8); Lymphocytes % (A) 31 %; MCH 26.7 pg (25.0-35.0); MCHC 31.9 g/dL (31.0-37.0); MCV 83.6 fL (80.0-100.0); Mean Platelet Volume 6.5; Monocytes # (A) 0.4 k/uL (0-1.0); Monocytes % (A) 5 %; Neutrophils # (A) 4.7 k/uL (1.3-7.7); Neutrophils % (A) 58 %; Platelet Count 389 k/uL (150-450); RBC 4.31 m/uL (3.80-5.40); RDW 16.4 % (11.5-15.5)
[2024-04-28 07:44] LABS: ALT 19 U/L (4-34); AST 28 U/L (14-36); African American GFR (CKD) >90 (>60 ml/min/1.73 sqM); Albumin 3.3 g/dL (3.5-5.0); Albumin/Globulin Ratio 1.2; Alkaline Phosphatase 116 U/L (38-126); Anion Gap 7 mmol/L; Blood Urea Nitrogen 12 mg/dL (7-17); Calcium 8.8 mg/dL (8.4-10.2); Carbon Dioxide 26 mmol/L (22-30); Chloride 103 mmol/L (98-107); Globulin 2.7 g/dL; Glucose 215 mg/dL (74-99); Magnesium 1.4 mg/dL (1.6-2.3); Non-African American GFR(CKD) >90 (>60 ml/min/1.73 sqM); Potassium 4.4 mmol/L (3.5-5.1); Sodium 136 mmol/L (137-145); Total Bilirubin 0.5 mg/dL (0.2-1.3)
[2024-04-28 08:06] LABS: Glucose,Whole Blood 217 mg/dL (70-110)
[2024-04-28 08:20] VITALS: BP 156/81; PULSE 49; TEMP 98.4
[2024-04-28] MEDS: FAMOTIDINE 20 MG TAB PO SCH (09:05)
[2024-04-28] MEDS: MAGNESIUM SULFATE-D5W PMX 1 GM in DEXTROSE/WATER 1 100ML.BAG IVPB SCH (09:05)
[2024-04-28] MEDS: IBUPROFEN 800 MG TAB PO PRN (10:12)
--- NOTE | 2024-04-28 10:18 | P.DS ---
Providers Date of admission: 04/26/24 18:31 Expected date of discharge: 04/28/24 Attending physician: Bairon Bennett MD Primary care physician: [facility] Course: Discharge Diagnosis: Hyperglycemia insulin-dependent diabetic, likely due to medication noncompliance Hyponatremia Lactic acidosis Hypomagnesemia Left shoulder pain Hypertension Hyperlipidemia GERD Hospital course: Patient is a 53-year-old female with past medical history of diabetes (on Lantus, Fiasp, Glucophage, and Mounjaro), hypertension, hyperlipidemia who presents to the ED with chief complaint of weakness. Patient states she was in her usual state of health until this morning, she began having chest pain, coughing clear phlegm, runny nose, sore throat. Patient also reports bandlike abdominal pain rated at 10 out of 10. Patient reports that she is compliant with all her medications including her insulins, which are 30 units of Lantus and 20 units of NovoLog with meals. Patient states last A1c was over a year ago. She states that she has had a lack of appetite and only ate vegetable soup today. She denies shortness of breath, nausea, vomiting, diarrhea, fevers, chills, headaches, or vision changes. Vitals on admission temperature 99.7, heart rate 64, respiratory rate 18, blood pressure 165/67, O2 saturation 96% on room air EKG independently interpreted as sinus rhythm with occasional PVCs, rate of 67 bpm and QTc of 429 ms CXR shows cardiomegaly and mild pulmonary vascular congestion Labs on admission show WBCs 10.6, hemoglobin 11.9, platelets 462. PT 10.2, INR 0.9, PTT 22.1. Sodium 131, potassium 5.2, chloride 98, bicarb 20, BUN 16, creatinine 0.64, glucose 335. Calcium 8.8. Phosphorus 3.9. Magnesium 1.5. Troponin negative. Lipase 164. UA shows 1+ protein, 4+ glucose without ketones. Cepheid panel negative. Patient was admitted to internal medicine service. Patient able to eat and drink well. While admitted she had her glucose and sodium levels improved. Blood pressure has been stable, in the hypertensive range. Despite being on fluids, patient had elevated lactic acid, likely type B. However her metformin will be discontinued for the time being. She is to follow-up with her PCP. Patient is being discharged home. Vital signs reviewed and stable. Physical examination: Vital signs reviewed General: non toxic, no distress, appears at stated age, normal weight Derm: no unusual rashes/lesions, warm Head: atraumatic, normocephalic, symmetric Eyes: EOMI, anicteric sclera, pupils equal round reactive to light ENT: Nose and ears atraumatic Neck: No cervical lymphadenopathy, trachea midline, supple Mouth: no lip lesion, mucus membranes moist Cardiovascular: S1S2 reg, no murmur, positive dorsalis pedis pulse bilateral, no edema Lungs: CTA bilateral, no rhonchi, no rales, no accessory muscle use Abdominal: soft, nontender to palpation, no guarding Ext: muscle strength 5 out of 5 in all 4 extremities grossly, no gross muscle atrophy Neuro: CN II-XI grossly intact, no gross focal neuro deficits Psych: Alert, oriented to person, place, and time A total of greather than 30 minutes of time were spent preparing this complex discharge summary. Patient was discharge on April 28, 2024 at 9:06 AM. Rajan Farley MD PGY-1 IM Dictation was produced using [employer] dictation software. please excuse any grammatical, word or spelling errors. I have seen and evaluated the patient today. Discussed with the resident and agree with the residents finding and plan as documented in the resident's note. Changes highlighted in blue font. Patient Condition at Discharge: Stable Plan - Discharge Summary New Discharge Prescriptions: Continue Atorvastatin [Lipitor] 80 mg PO HS hydrALAZINE HCL [Apresoline] 25 mg PO BID #60 tab Insulin Glargine,Hum.rec.anlog [Lantus Solostar Pen] 30 units SQ HS Pantoprazole [Protonix] 40 mg PO DAILY Ondansetron Odt [Zofran ODT] 4 mg PO Q8HR PRN #10 tab PRN Reason: Nausea Ibuprofen [Motrin] 600 mg PO Q8HR PRN 30 Days #30 tab PRN Reason: Pain lisinopriL 40 mg PO DAILY traZODone HCL 50 mg PO HS Albuterol Inhaler [Ventolin Hfa Inhaler] 2 puff INHALATION RT-QID PRN PRN Reason: Shortness Of Breath amLODIPine [Norvasc] 10 mg PO DAILY #30 tab Ezetimibe [Zetia] 10 mg PO HS Insulin Aspart (Niacinamide) [Fiasp 100 Unit/ml Flextouch Pen] 20 units SQ BID Nystatin 100,000 Unit/gm Powd [Mycostatin Powder] 1 applic TOPICAL BID PRN PRN Reason: Rash Famotidine [Pepcid] 20 mg PO DAILY #20 tablet Tirzepatide [Mounjaro] 2.5 mg SQ FR Discontinued metFORMIN HCL [Glucophage] 1,000 mg PO BID-W/MEALS Discharge Medication List Atorvastatin [Lipitor] 80 mg PO HS 06/25/19 [History] lisinopriL 40 mg PO DAILY 09/24/20 [History] traZODone HCL 50 mg PO HS 01/11/21 [History] Albuterol Inhaler [Ventolin Hfa Inhaler] 2 puff INHALATION RT-QID PRN 03/01/23 [History] amLODIPine [Norvasc] 10 mg PO DAILY #30 tab 03/11/23 [Rx] hydrALAZINE HCL [Apresoline] 25 mg PO BID #60 tab 03/11/23 [Rx] Insulin Glargine,Hum.rec.anlog [Lantus Solostar Pen] 30 units SQ HS 07/30/23 [History] Ezetimibe [Zetia] 10 mg PO HS 02/17/24 [History] Insulin Aspart (Niacinamide) [Fiasp 100 Unit/ml Flextouch Pen] 20 units SQ BID 02/17/24 [History] Nystatin 100,000 Unit/gm Powd [Mycostatin Powder] 1 applic TOPICAL BID PRN 02/17/24 [History] Pantoprazole [Protonix] 40 mg PO DAILY 02/17/24 [History] Ondansetron Odt [Zofran ODT] 4 mg PO Q8HR PRN #10 tab 03/29/24 [Rx] Ibuprofen [Motrin] 600 mg PO Q8HR PRN 30 Days #30 tab 04/11/24 [Rx] Famotidine [Pepcid] 20 mg PO DAILY #20 tablet 04/18/24 [Rx] Tirzepatide [Mounjaro] 2.5 mg SQ FR 04/26/24 [History] Follow up Appointment(s)/Referral(s): [facility] [Primary Care Provider] - 1-2 days Patient Instructions/Handouts: Type 2 Diabetes in the Older Adult (DC), Diabetes and Nutrition (DC) Activity/Diet/Wound Care/Special Instructions: Please see your PCP. Discharge Disposition: HOME SELF-CARE
[2024-04-28 12:46] LABS: Glucose,Whole Blood 227 mg/dL (70-110)
[2024-04-28 14:28] VITALS: BMI 35.2
== END 2024-04-28 15:10 | disposition home or self-care (01) ==
LOC: EC 17:28 → 6NMEDSUR 18:31
PROVIDERS: ADMIT Internal Medicine; ATTEND Internal Medicine
DX: E11.65 Type 2 diabetes mellitus with hyperglycemia (principal); E86.0 Dehydration; F32.A Depression, unspecified; R53.1 Weakness; E87.1 Hypo-osmolality and hyponatremia; E87.5 Hyperkalemia; E87.20 Acidosis, unspecified; E83.42 Hypomagnesemia; E78.1 Pure hyperglyceridemia; M25.512 Pain in left shoulder; K21.9 Gastro-esophageal reflux disease without esophagitis; E78.5 Hyperlipidemia, unspecified; I10 Essential (primary) hypertension; F17.290 Nicotine dependence, other tobacco product, uncomplicated; Z11.52 Encounter for screening for COVID-19; Z79.4 Long term (current) use of insulin; Z79.84 Long term (current) use of oral hypoglycemic drugs; Z79.85 Long-term (current) use of injectable non-insulin antidiabetic drugs; Z79.899 Other long term (current) drug therapy; Z88.1 Allergy status to other antibiotic agents
CPT/HCPCS: 96376; 96365; 96366 ×2; 96372 ×2; 96374; 96375; 99285; 93005; 83880; 80053 ×3; 82009; 83605 ×3; 83690; 83735 ×3; 84100 ×2; 84484; 85025 ×3; 85610; 85730; 81001; 83036; 87636; 71045; G0378 ×3; J2270 ×2; J2405; J1650 ×2; J3475 ×2

== ENCOUNTER 2024-04-30 15:37 | Emergency (ER) | payer MEDICARE ==
[2024-04-30 15:43] VITALS: RESP 17
[2024-04-30] MEDS: SODIUM CHLORIDE 0.9% 1,000 ML IV STA ×2 (17:38→18:57)
[2024-04-30] MEDS: predniSONE 20 MG TAB PO STA (17:40)
--- NOTE | 2024-04-30 17:44 | XR ---
EXAMINATION TYPE: XR chest 2V DATE OF EXAM: 04/30/2024 5:30 PM COMPARISON: None. CLINICAL INDICATION: Female, 53 years old with history of cough, TECHNIQUE: XR chest 2V view(s) obtained. FINDINGS: The heart size is normal. The pulmonary vasculature is normal. The lungs are clear. Previous minimal increased lung markings left lung have resolved. IMPRESSION: 1. No acute pulmonary process. [facility], Workstation: [facility], 04/30/2024 5:41 PM
[2024-04-30 17:46] LABS: ALT 19 U/L (4-34); African American GFR (CKD) >90 (>60 ml/min/1.73 sqM); Albumin 4.1 g/dL (3.5-5.0); Anion Gap 15 mmol/L; Blood Urea Nitrogen 17 mg/dL (7-17); Calcium 9.2 mg/dL (8.4-10.2); Carbon Dioxide 20 mmol/L (22-30); Chloride 96 mmol/L (98-107); Non-African American GFR(CKD) >90 (>60 ml/min/1.73 sqM); Sodium 131 mmol/L (137-145); Total Bilirubin 0.6 mg/dL (0.2-1.3); Total Protein 7.3 g/dL (6.3-8.2)
[2024-04-30 17:51] LABS: AST 29 U/L (14-36); Alkaline Phosphatase 140 U/L (38-126); Glucose 562 mg/dL (74-99); Potassium 4.8 mmol/L (3.5-5.1)
[2024-04-30 17:55] LABS: Anisocytosis Slight; Basophils % (A) 0 %; Eosinophils # (A) 0.3 k/uL (0-0.7); Eosinophils % (A) 3 %; HCT 39.3 % (34.0-46.0); Lymphocytes # (A) 2.5 k/uL (1.0-4.8); Lymphocytes % (A) 25 %; MCH 27.3 pg (25.0-35.0); MCHC 33.1 g/dL (31.0-37.0); MCV 82.5 fL (80.0-100.0); Mean Platelet Volume 7.9; Monocytes # (A) 0.4 k/uL (0-1.0); Monocytes % (A) 4 %; Neutrophils # (A) 6.6 k/uL (1.3-7.7); Neutrophils % (A) 67 %; Platelet Count 454 k/uL (150-450); RBC 4.76 m/uL (3.80-5.40); RDW 16.2 % (11.5-15.5); WBC 9.9 k/uL (3.8-10.6)
[2024-04-30 18:12] LABS: Influenza A Not Detected (Not Detectd); Influenza B Not Detected (Not Detectd); RSV Not Detected (Not Detectd)
[2024-04-30] MEDS: IPRATROPIUM-ALBUTEROL 3 ML NEB INHALATION STA (18:46)
[2024-04-30] MEDS: IBUPROFEN 800 MG TAB PO STA (20:23)
[2024-04-30 20:35] LABS: Glucose,Whole Blood 447 mg/dL (70-110)
[2024-04-30 20:37] LABS: Appearance,Urine Clear (Clear); Bilirubin,Urine Negative (Negative); Blood,Urine Negative (Negative); Color,Urine Colorless; Glucose,Urine (UA) 4+ (Negative); Ketones,Urine Negative (Negative); Leukocyte Esterase,Urine Negative (Negative); Nitrite,Urine Negative (Negative); Protein,Urine 1+ (Negative); RBC,Urine 1 /hpf (0-5); Specific Gravity,Urine 1.017 (1.001-1.035); Squamous Epithelial Cell,Urine 2 /hpf (0-4); Urobilinogen,Urine <2.0 mg/dL (<2.0); WBC,Urine 3 /hpf (0-5)
[2024-04-30] MEDS: INSULIN ASPART (NovoLOG) 100 UNIT/ML VIAL SQ ONE ×2 (20:50→22:05)
[2024-04-30] MEDS: AZITHROMYCIN 500 MG TAB PO STA (20:52)
[2024-04-30 21:19] LABS: Glucose,Whole Blood 428 mg/dL (70-110)
[2024-04-30 21:53] LABS: Glucose,Whole Blood 432 mg/dL (70-110)
[2024-04-30 22:39] LABS: Glucose,Whole Blood 408 mg/dL (70-110)
--- NOTE | 2024-04-30 22:54 | ED ---
General Adult HPI - General Chief complaint: Upper Respiratory Infection Stated complaint: general pain Time Seen by Provider: 04/30/24 18:00 Source: patient, RN notes reviewed, old records reviewed Mode of arrival: EMS Limitations: no limitations - History of Present Illness Initial comments: Patient is a 53-year-old female well-known to our emergency department. Frequent evaluations for URI symptoms as well as hyperglycemia. Was recently admitted here. Denies any symptoms other than a productive cough of clear whitish sputum which she states is worse over the last few days. States her sugars are "normal at home." States she is compliant with medications. No recent antibiotics per patient. Presents for further evaluation at this time. He has no other symptoms. - Related Data Home Medications Medication Instructions Recorded Confirmed Atorvastatin [Lipitor] 80 mg PO HS 06/25/19 04/26/24 lisinopriL 40 mg PO DAILY 09/24/20 04/26/24 traZODone HCL 50 mg PO HS 01/11/21 04/26/24 Albuterol Inhaler [Ventolin Hfa 2 puff INHALATION RT-QID PRN 03/01/23 04/26/24 Inhaler] Insulin Glargine,Hum.rec.anlog 30 units SQ HS 07/30/23 04/26/24 [Lantus Solostar Pen] Ezetimibe [Zetia] 10 mg PO HS 02/17/24 04/26/24 Insulin Aspart (Niacinamide) 20 units SQ BID 02/17/24 04/26/24 [Fiasp 100 Unit/ml Flextouch Pen] Nystatin 100,000 Unit/gm Powd 1 applic TOPICAL BID PRN 02/17/24 04/26/24 [Mycostatin Powder] Pantoprazole [Protonix] 40 mg PO DAILY 02/17/24 04/26/24 Tirzepatide [Mounjaro] 2.5 mg SQ FR 04/26/24 04/26/24 Previous Rx's Medication Instructions Recorded amLODIPine [Norvasc] 10 mg PO DAILY #30 tab 03/11/23 hydrALAZINE HCL [Apresoline] 25 mg PO BID #60 tab 03/11/23 Ondansetron Odt [Zofran ODT] 4 mg PO Q8HR PRN #10 tab 03/29/24 Ibuprofen [Motrin] 600 mg PO Q8HR PRN 30 Days #30 tab 04/11/24 Famotidine [Pepcid] 20 mg PO DAILY #20 tablet 04/18/24 Albuterol Inhaler [Ventolin Hfa 1 - 2 puff INHALATION Q6H PRN #1 04/30/24 Inhaler] each Azithromycin [Zithromax] 250 mg PO DAILY 4 Days #4 tab 04/30/24 Allergies Allergy/AdvReac Type Severity Reaction Status Date / Time levofloxacin [From Levaquin] Allergy Rash/Hives Verified 04/30/24 16:06 Review of Systems ROS Statement: Those systems with pertinent positive or pertinent negative responses have been documented in the HPI. Review of Systems: CONST: Denies fever EYES: Denies blurry vision ENT: Endorses nasal congestion C/V: Denies Chest pain RESP: Denies shortness of breath GI: Denies abdominal pain : Denies dysuria SKIN: Denies rash. MSK: Denies joint pain. NEURO: Denies headache ROS Other: All systems not noted in ROS Statement are negative. Past Medical History Past Medical History: Diabetes Mellitus, GERD/Reflux, Hyperlipidemia, Hypertension, Syncope Additional Past Medical History / Comment(s): Pt recently admitted to [facility] on 07/21/21 with uncontrolled IDDM and hyperkalemia. Other hx: Recurrent pancreatitis, hypertriglyceridemia, elevated lipase, IDDM type II, UTI, chronic low back pain, bulging discs, dental abscesses in past. History of Any Multi-Drug Resistant Organisms: MRSA Date of last positivie culture/infection: 03/01/23 MDRO Source:: Abdomen Past Surgical History: Tubal Ligation Additional Past Surgical History / Comment(s): Age 7 had VSD repair, tumor removal 03/2023 Past Anesthesia/Blood Transfusion Reactions: No Reported Reaction Past Psychological History: No Psychological Hx Reported Smoking Status: Former smoker, Second hand smoke exposure, Vaper Past Alcohol Use History: None Reported Past Drug Use History: None Reported - Past Family History Mother Family Medical History: No Reported History Additional Family Medical History / Comment(s): Mother was healthy. She is , pt cannot recall cause of . Father Family Medical History: Pneumonia Additional Family Medical History / Comment(s): Father at the age of 67yrs from pneumonia General Exam - General Exam Comments Initial Comments: General: Appears in no acute distress. HEAD: Normal with no signs of head trauma. EYES: EOMI ENT: Hearing grossly intact, normal oropharynx. RESPIRATORY: Clear breath sounds bilaterally. No wheezes, rales, or rhonchi. No hypoxia. C/V: Regular rate and rhythm. S1 and S2 auscultated, peripheral pulses 2+ and intact throughout ABD: Abd is soft, nontender, nondistended EXT: No obvious deformity. SKIN: No rashes or lesions observed on exposed skin. NEURO: Alert and oriented x 4. Limitations: no limitations Course Vital Signs 04/30/24 04/30/24 04/30/24 15:39 15:47 18:50 Temperature 98.0 F Pulse Rate 86 86 Respiratory 17 17 Rate Blood Pressure 163/93 O2 Sat by Pulse 96 Oximetry 04/30/24 04/30/24 18:55 20:24 Temperature 98.2 F Pulse Rate 88 63 Respiratory 17 Rate Blood Pressure 169/77 O2 Sat by Pulse 95 Oximetry Medical Decision Making - Medical Decision Making Was pt. sent in by a medical professional or institution (, PA, ASSOCIATE SALES, urgent care, hospital, or correction...) When possible be specific @ -No Did you speak to anyone other than the patient for history (EMS, parent, family, police, friend...)? What history was obtained from this source @ -No Did you review nursing and triage notes (agree or disagree)? Why? @ -I reviewed and agree with nursing and triage notes Were old charts reviewed (outside hosp., previous admission, EMS record, old EKG, old radiological studies, urgent care reports/EKG's, correction records)? Report findings @ -Old charts reviewed showing patient's recent admission for hyperglycemia. This was earlier this month. Differential Diagnosis (chest pain, altered mental status, abdominal pain women, abdominal pain men, vaginal bleeding, weakness, fever, dyspnea, syncope, headache, dizziness, GI bleed, back pain, seizure, CVA, palpatations, mental health, musculoskeletal)? @ -COVID, flu, pneumonia, RSV, hyperglycemia. This list is not all boosted. EKG interpreted by me (3pts min.). @ -None done X-rays interpreted by me (1pt min.). @ -Chest x-ray reveals no obvious acute cardiopulmonary process. CT interpreted by me (1pt min.). @ -None done U/S interpreted by me (1pt. min.). @ -None done What testing was considered but not performed or refused? (CT, X-rays, U/S, labs)? Why? @ -None What meds were considered but not given or refused? Why? @ -None Did you discuss the management of the patient with other professionals (professionals i.e. DrShayan, PA, ASSOCIATE SALES, lab, RT, psych nurse, public health social worker, derrickman helper, teacher, senior credit officer, top case assembler)? Give summary @ -No Was smoking cessation discussed for >3mins.? @ -No Was critical care preformed (if so, how long)? @ -No Were there social determinants of health that impacted care today? How? (Homelessness, low income, unemployed, alcoholism, drug addiction, transportation, low edu. Level, literacy, decrease access to med. care, correction, rehab)? @ -No Was there de-escalation of care discussed even if they declined (Discuss DNR or withdrawal of care, Hospice)? DNR status @ -No What co-morbidities impacted this encounter? (DM, HTN, Smoking, COPD, CAD, Cancer, CVA, ARF, Chemo, Hep., AIDS, mental health diagnosis, sleep apnea, morbid obesity)? @ -Diabetes Was patient admitted / discharged? Hospital course, mention meds given and route, prescriptions, significant lab abnormalities, going to OR and other pertinent info. @ -Based on the patient's presentation and physical exam, presents emergency department complaining of URI symptoms and hyperglycemia. Vital signs within acceptable limits. We will obtain general labs as well as viral swabs, as well as an acetone and urine. Patient was in agreement this plan. Chest x-ray reveals no obvious acute cardiopulmonary process. Acetone negative. 4+ glucose on urine. No significant anion gap metabolic acidosis. Patient is hyperglycemic to 562. After the patient. She will be started on an inhaler for home as well as azithromycin. We will administer insulin to decrease the patient's sugar below 400. She is chronically elevated. She was in agreement this plan. I will provide the patient with a prescription for azithromycin, albuterol inhaler. I instructed the patient to follow up with their PCP in the next 1-3 days.. I explained that the patient should return to the emergency department if they experience any worsening symptoms. Strict return precautions were discussed with the patient. The patient expressed understanding of these instructions. I answered all questions that the patient had. The patient was discharged home in good condition with their prescriptions and follow up information. Undiagnosed new problem with uncertain prognosis? @ -No Drug Therapy requiring intensive monitoring for toxicity (Heparin, Nitro, Insulin, Cardizem)? @ -No Were any procedures done? @ -No Diagnosis/symptom? @ -Hyperglycemia in the setting of diabetes, tracheobronchitis Acute, or Chronic, or Acute on Chronic? @ -Acute Uncomplicated (without systemic symptoms) or Complicated (systemic symptoms)? @ -Uncomplicated Side effects of treatment? @ -No Exacerbation, Progression, or Severe Exacerbation? @ -No Poses a threat to life or bodily function? How? (Chest pain, USA, SC, pneumonia, PE, COPD, DKA, ARF, appy, cholecystitis, CVA, Diverticulitis, Homicidal, Suicidal, threat to staff... and all critical care pts) @ -Unlikely at this time - Lab Data Result diagrams: 04/30/24 17:09 04/30/24 17:09 Lab Results 04/30/24 04/30/24 04/30/24 Range/Units 17:09 17:09 17:09 WBC 9.9 (3.8-10.6) k/uL RBC 4.76 (3.80-5.40) m/uL Hgb 13.0 (11.4-16.0) gm/dL Hct 39.3 (34.0-46.0) % MCV 82.5 (80.0-100.0) fL MCH 27.3 (25.0-35.0) pg MCHC 33.1 (31.0-37.0) g/dL RDW 16.2 H (11.5-15.5) % Plt Count 454 H (150-450) k/uL MPV 7.9 Neutrophils % 67 % Lymphocytes % 25 % Monocytes % 4 % Eosinophils % 3 % Basophils % 0 % Neutrophils # 6.6 (1.3-7.7) k/uL Lymphocytes # 2.5 (1.0-4.8) k/uL Monocytes # 0.4 (0-1.0) k/uL Eosinophils # 0.3 (0-0.7) k/uL Basophils # 0.0 (0-0.2) k/uL Anisocytosis Slight Sodium 131 L (137-145) mmol/L Potassium 4.8 (3.5-5.1) mmol/L Chloride 96 L (98-107) mmol/L Carbon Dioxide 20 L (22-30) mmol/L Anion Gap 15 mmol/L BUN 17 (7-17) mg/dL Creatinine 0.73 (0.52-1.04) mg/dL Est GFR (CKD-EPI)AfAm >90 (>60 ml/min/1.73 sqM) Est GFR (CKD-EPI)NonAf >90 (>60 ml/min/1.73 sqM) Glucose 562 H* (74-99) mg/dL POC Glucose (mg/dL) (70-110) mg/dL POC Glu Pharmacy Operations Coordinator ID Calcium 9.2 (8.4-10.2) mg/dL Total Bilirubin 0.6 (0.2-1.3) mg/dL AST 29 (14-36) U/L ALT 19 (4-34) U/L Alkaline Phosphatase 140 H (38-126) U/L Total Protein 7.3 (6.3-8.2) g/dL Albumin 4.1 (3.5-5.0) g/dL Urine Color Urine Appearance (Clear) Urine pH (5.0-8.0) Ur Specific Sidell (1.001-1.035) Urine Protein (Negative) Urine Glucose (UA) (Negative) Urine Ketones (Negative) Urine Blood (Negative) Urine Nitrite (Negative) Urine Bilirubin (Negative) Urine Urobilinogen (<2.0) mg/dL Ur Leukocyte Esterase (Negative) Urine RBC (0-5) /hpf Urine WBC (0-5) /hpf Ur Squamous Epith Cells (0-4) /hpf Acetone, Qual (Negative) Influenza Type A (PCR) Not Detected (Not Detectd) Influenza Type B (PCR) Not Detected (Not Detectd) RSV (PCR) Not Detected (Not Detectd) SARS-CoV-2 (PCR) Not Detected (Not Detectd) 04/30/24 04/30/24 04/30/24 Range/Units 18:00 20:26 20:34 WBC (3.8-10.6) k/uL RBC (3.80-5.40) m/uL Hgb (11.4-16.0) gm/dL Hct (34.0-46.0) % MCV (80.0-100.0) fL MCH (25.0-35.0) pg MCHC (31.0-37.0) g/dL RDW (11.5-15.5) % Plt Count (150-450) k/uL MPV Neutrophils % % Lymphocytes % % Monocytes % % Eosinophils % % Basophils % % Neutrophils # (1.3-7.7) k/uL Lymphocytes # (1.0-4.8) k/uL Monocytes # (0-1.0) k/uL Eosinophils # (0-0.7) k/uL Basophils # (0-0.2) k/uL Anisocytosis Sodium (137-145) mmol/L Potassium (3.5-5.1) mmol/L Chloride (98-107) mmol/L Carbon Dioxide (22-30) mmol/L Anion Gap mmol/L BUN (7-17) mg/dL Creatinine (0.52-1.04) mg/dL Est GFR (CKD-EPI)AfAm (>60 ml/min/1.73 sqM) Est GFR (CKD-EPI)NonAf (>60 ml/min/1.73 sqM) Glucose (74-99) mg/dL POC Glucose (mg/dL) 447 H (70-110) mg/dL POC Glu Pharmacy Operations Coordinator BELINDA Hodges Calcium (8.4-10.2) mg/dL Total Bilirubin (0.2-1.3) mg/dL AST (14-36) U/L ALT (4-34) U/L Alkaline Phosphatase (38-126) U/L Total Protein (6.3-8.2) g/dL Albumin (3.5-5.0) g/dL Urine Color Colorless Urine Appearance Clear (Clear) Urine pH 6.0 (5.0-8.0) Ur Specific Sidell 1.017 (1.001-1.035) Urine Protein 1+ H (Negative) Urine Glucose (UA) 4+ H (Negative) Urine Ketones Negative (Negative) Urine Blood Negative (Negative) Urine Nitrite Negative (Negative) Urine Bilirubin Negative (Negative) Urine Urobilinogen <2.0 (<2.0) mg/dL Ur Leukocyte Esterase Negative (Negative) Urine RBC 1 (0-5) /hpf Urine WBC 3 (0-5) /hpf Ur Squamous Epith Cells 2 (0-4) /hpf Acetone, Qual Negative (Negative) Influenza Type A (PCR) (Not Detectd) Influenza Type B (PCR) (Not Detectd) RSV (PCR) (Not Detectd) SARS-CoV-2 (PCR) (Not Detectd) 04/30/24 04/30/24 04/30/24 Range/Units 21:17 21:52 22:37 WBC (3.8-10.6) k/uL RBC (3.80-5.40) m/uL Hgb (11.4-16.0) gm/dL Hct (34.0-46.0) % MCV (80.0-100.0) fL MCH (25.0-35.0) pg MCHC (31.0-37.0) g/dL RDW (11.5-15.5) % Plt Count (150-450) k/uL MPV Neutrophils % % Lymphocytes % % Monocytes % % Eosinophils % % Basophils % % Neutrophils # (1.3-7.7) k/uL Lymphocytes # (1.0-4.8) k/uL Monocytes # (0-1.0) k/uL Eosinophils # (0-0.7) k/uL Basophils # (0-0.2) k/uL Anisocytosis Sodium (137-145) mmol/L Potassium (3.5-5.1) mmol/L Chloride (98-107) mmol/L Carbon Dioxide (22-30) mmol/L Anion Gap mmol/L BUN (7-17) mg/dL Creatinine (0.52-1.04) mg/dL Est GFR (CKD-EPI)AfAm (>60 ml/min/1.73 sqM) Est GFR (CKD-EPI)NonAf (>60 ml/min/1.73 sqM) Glucose (74-99) mg/dL POC Glucose (mg/dL) 428 H 432 H 408 H (70-110) mg/dL POC Glu Pharmacy Operations Coordinator ID Juliano Jimenez Tracie Calcium (8.4-10.2) mg/dL Total Bilirubin (0.2-1.3) mg/dL AST (14-36) U/L ALT (4-34) U/L Alkaline Phosphatase (38-126) U/L Total Protein (6.3-8.2) g/dL Albumin (3.5-5.0) g/dL Urine Color Urine Appearance (Clear) Urine pH (5.0-8.0) Ur Specific Sidell (1.001-1.035) Urine Protein (Negative) Urine Glucose (UA) (Negative) Urine Ketones (Negative) Urine Blood (Negative) Urine Nitrite (Negative) Urine Bilirubin (Negative) Urine Urobilinogen (<2.0) mg/dL Ur Leukocyte Esterase (Negative) Urine RBC (0-5) /hpf Urine WBC (0-5) /hpf Ur Squamous Epith Cells (0-4) /hpf Acetone, Qual (Negative) Influenza Type A (PCR) (Not Detectd) Influenza Type B (PCR) (Not Detectd) RSV (PCR) (Not Detectd) SARS-CoV-2 (PCR) (Not Detectd) Disposition Clinical Impression: Tracheobronchitis, Hyperglycemia Disposition: HOME SELF-CARE Condition: Good Instructions (If sedation given, give patient instructions): Diabetic Hyperglycemia (ED), Acute Bronchitis (ED) Prescriptions: Albuterol Inhaler [Ventolin Hfa Inhaler] 1 - 2 puff INHALATION Q6H PRN #1 each PRN Reason: Dyspnea Azithromycin [Zithromax] 250 mg PO DAILY 4 Days #4 tab Is patient prescribed a controlled substance at d/c from ED?: No Referrals: [facility] [Primary Care Provider] - 1-2 days Time of Disposition: 23:00
[2024-04-30 23:10] LABS: Glucose,Whole Blood 408 mg/dL (70-110)
[2024-04-30 23:18] VITALS: BP 163/72; PULSE 65; TEMP 98.6
== END 2024-04-30 23:31 | disposition home or self-care (01) ==
LOC: EC 15:37
DX: J40 Bronchitis, not specified as acute or chronic (principal); E78.1 Pure hyperglyceridemia; E11.65 Type 2 diabetes mellitus with hyperglycemia; Z88.1 Allergy status to other antibiotic agents; Z87.891 Personal history of nicotine dependence; Z79.4 Long term (current) use of insulin; Z79.899 Other long term (current) drug therapy
CPT/HCPCS: 36415; 94640; 80053; 82009; 85025; 81001; 87636; 71046; 99284; 96360; 96361; J7512

== ENCOUNTER 2024-05-03 14:11 | Emergency (ER) | payer MEDICARE ==
[2024-05-03 14:32] VITALS: TEMP 98.7
--- NOTE | 2024-05-03 14:35 | ED ---
General Adult HPI - General Chief complaint: Upper Respiratory Infection Stated complaint: Cough,Chest tightness Time Seen by Provider: 05/03/24 14:13 Source: patient Mode of arrival: EMS Limitations: no limitations - History of Present Illness Initial comments: Patient returns to the ED by ambulance for evaluation of persistent cough. Patient states that she has had symptoms of a productive cough, congestion and malaise for the past 3 to 4 days. Patient was seen in the ED when her symptoms began, and she had a negative Cepheid test done at that time. Patient also had an unremarkable chest x-ray obtained at that time. Patient was started on a course of antibiotics, which she states she has been taking for the past couple of days, but she reports that her symptoms have not been improving, so she has return to the ED. Patient also admits to having some generalized chest pain, but only when coughing. Patient denies having any other symptoms or complaints. Patient denies fever or chills, trauma or injury, headache, neck pain or stiffness, sore throat, neck/arm/jaw/back pain, dyspnea, hemoptysis, palpitations, dizziness, abdominal pain, nausea/vomiting/diarrhea, dysuria or urinary symptoms, decreased urine output, leg or calf swelling or pain, or any other symptoms or complaints. Patient is well-known to the ED with multiple prior ED visits. - Related Data Home Medications Medication Instructions Recorded Confirmed Atorvastatin [Lipitor] 80 mg PO HS 06/25/19 04/26/24 lisinopriL 40 mg PO DAILY 09/24/20 04/26/24 traZODone HCL 50 mg PO HS 01/11/21 04/26/24 Albuterol Inhaler [Ventolin Hfa 2 puff INHALATION RT-QID PRN 03/01/23 04/26/24 Inhaler] Insulin Glargine,Hum.rec.anlog 30 units SQ HS 07/30/23 04/26/24 [Lantus Solostar Pen] Ezetimibe [Zetia] 10 mg PO HS 02/17/24 04/26/24 Insulin Aspart (Niacinamide) 20 units SQ BID 02/17/24 04/26/24 [Fiasp 100 Unit/ml Flextouch Pen] Nystatin 100,000 Unit/gm Powd 1 applic TOPICAL BID PRN 02/17/24 04/26/24 [Mycostatin Powder] Pantoprazole [Protonix] 40 mg PO DAILY 02/17/24 04/26/24 Tirzepatide [Mounjaro] 2.5 mg SQ FR 04/26/24 04/26/24 Previous Rx's Medication Instructions Recorded amLODIPine [Norvasc] 10 mg PO DAILY #30 tab 03/11/23 hydrALAZINE HCL [Apresoline] 25 mg PO BID #60 tab 03/11/23 Ondansetron Odt [Zofran ODT] 4 mg PO Q8HR PRN #10 tab 03/29/24 Ibuprofen [Motrin] 600 mg PO Q8HR PRN 30 Days #30 tab 04/11/24 Famotidine [Pepcid] 20 mg PO DAILY #20 tablet 04/18/24 Albuterol Inhaler [Ventolin Hfa 1 - 2 puff INHALATION Q6H PRN #1 04/30/24 Inhaler] each Azithromycin [Zithromax] 250 mg PO DAILY 4 Days #4 tab 04/30/24 Allergies Allergy/AdvReac Type Severity Reaction Status Date / Time levofloxacin [From Levaquin] Allergy Rash/Hives Verified 05/03/24 14:18 Review of Systems ROS Statement: Those systems with pertinent positive or pertinent negative responses have been documented in the HPI. ROS Other: All systems not noted in ROS Statement are negative. Past Medical History Past Medical History: Diabetes Mellitus, GERD/Reflux, Hyperlipidemia, Hypertension, Syncope Additional Past Medical History / Comment(s): Pt recently admitted to [facility] on 07/21/21 with uncontrolled IDDM and hyperkalemia. Other hx: Recurrent pancreatitis, hypertriglyceridemia, elevated lipase, IDDM type II, UTI, chronic low back pain, bulging discs, dental abscesses in past. History of Any Multi-Drug Resistant Organisms: MRSA Date of last positivie culture/infection: 03/01/23 MDRO Source:: Abdomen Past Surgical History: Tubal Ligation Additional Past Surgical History / Comment(s): Age 7 had VSD repair, tumor removal 03/2023 Past Anesthesia/Blood Transfusion Reactions: No Reported Reaction Past Psychological History: No Psychological Hx Reported Smoking Status: Former smoker, Second hand smoke exposure, Vaper Past Alcohol Use History: None Reported Past Drug Use History: None Reported - Past Family History Mother Family Medical History: No Reported History Additional Family Medical History / Comment(s): Mother was healthy. She is , pt cannot recall cause of . Father Family Medical History: Pneumonia Additional Family Medical History / Comment(s): Father at the age of 67yrs from pneumonia General Exam Limitations: no limitations General appearance: alert, in no apparent distress Head exam: Present: atraumatic Eye exam: Present: normal appearance ENT exam: Present: normal oropharynx, mucous membranes moist, TM's normal bilaterally Neck exam: Present: other (Trachea is in midline). Absent: tenderness, meningismus Respiratory exam: Present: normal lung sounds bilaterally. Absent: respiratory distress, wheezes, rales, rhonchi, stridor Cardiovascular Exam: Present: regular rate, normal rhythm, normal heart sounds, other (Normal radial pulses bilaterally) GI/Abdominal exam: Present: soft. Absent: distended, tenderness, guarding Extremities exam: Present: other (Negative Homans' sign bilaterally). Absent: tenderness, pedal edema, calf tenderness Neurological exam: Present: alert, oriented X3 Skin exam: Present: warm, dry, normal color Course Vital Signs 05/03/24 14:13 Temperature 98.7 F Pulse Rate 80 Respiratory 16 Rate Blood Pressure 149/90 O2 Sat by Pulse 97 Oximetry Medical Decision Making - Medical Decision Making Was pt. sent in by a medical professional or institution (ROSALIE Flaherty, WOOD HEEL FINISHER, urgent care, hospital, or snf...) When possible be specific @ -No Did you speak to anyone other than the patient for history (EMS, parent, family, police, friend...)? What history was obtained from this source @ -No Did you review nursing and triage notes (agree or disagree)? Why? @ -I reviewed and agree with nursing and triage notes Were old charts reviewed (outside hosp., previous admission, EMS record, old EKG, old radiological studies, urgent care reports/EKG's, snf records)? Report findings @ -No old charts were reviewed Differential Diagnosis (chest pain, altered mental status, abdominal pain women, abdominal pain men, vaginal bleeding, weakness, fever, dyspnea, syncope, headache, dizziness, GI bleed, back pain, seizure, CVA, palpatations, mental health, musculoskeletal)? @ -Upper respiratory infection, bronchitis, pneumonia, viral illness, asthma, COPD, chest wall strain, pneumothorax, this is not meant to be a complete list. EKG interpreted by me (3pts min.). @ -As above X-rays interpreted by me (1pt min.). @ -Chest x-ray was reviewed myself and shows no acute abnormality. I agree wit h the radiologist's interpretation as above. CT interpreted by me (1pt min.). @ -None done U/S interpreted by me (1pt. min.). @ -None done What testing was considered but not performed or refused? (CT, X-rays, U/S, labs)? Why? @ -None What meds were considered but not given or refused? Why? @ -None Did you discuss the management of the patient with other professionals (professionals i.e. DrShayan, PA, WOOD HEEL FINISHER, lab, RT, psych nurse, geriatric social worker, plumbing engineer, teacher, information systems security officer, skilled nursing case manager)? Give summary @ -No Was smoking cessation discussed for >3mins.? @ -No Was critical care preformed (if so, how long)? @ -No Were there social determinants of health that impacted care today? How? (Homelessness, low income, unemployed, alcoholism, drug addiction, transportation, low edu. Level, literacy, decrease access to med. care, care home, rehab)? @ -No Was there de-escalation of care discussed even if they declined (Discuss DNR or withdrawal of care, Hospice)? DNR status @ -No What co-morbidities impacted this encounter? (DM, HTN, Smoking, COPD, CAD, Cancer, CVA, ARF, Chemo, Hep., AIDS, mental health diagnosis, sleep apnea, morbid obesity)? @ -None Was patient admitted / discharged? Hospital course, mention meds given and route, prescriptions, significant lab abnormalities, going to OR and other pertinent info. @ -Patient had a fairly thorough ED workup for her symptoms 3 days ago when th ey began. Patient's Cepheid test was negative at that time. Patient continues to have an unremarkable chest x-ray. Patient has clear breath sounds bilaterally and a normal room air oxygen saturation. Patient is afebrile. Patient's vital signs are fairly unremarkable. I do not suspect an emergent medical condition at this time. I suspect that the patient's symptoms are likely due to infectious bronchitis, and she was instructed to complete the course of antibiotics that she is currently taking. She was also instructed to follow-up closely with her primary care provider. She was counseled about bronchitis, and she was clearly explained return and follow-up instructions. Will discharge patient home at this time. Patient feels comfortable with this plan. Undiagnosed new problem with uncertain prognosis? @ -No Drug Therapy requiring intensive monitoring for toxicity (Heparin, Nitro, Insulin, Cardizem)? @ -No Were any procedures done? @ -No Diagnosis/symptom? @ -Acute bronchitis Acute, or Chronic, or Acute on Chronic? @ -Acute Uncomplicated (without systemic symptoms) or Complicated (systemic symptoms)? @ -Default Side effects of treatment? @ -No Exacerbation, Progression, or Severe Exacerbation? @ -No Poses a threat to life or bodily function? How? (Chest pain, [place], [place], pneumonia, PE, COPD, DKA, ARF, appy, cholecystitis, CVA, Diverticulitis, Homicidal, Suicidal, threat to staff... and all critical care pts) @ -No - Radiology Data Chest x-ray: 1. No acute cardiopulmonary process. 2. Persistent mild linear scarring/atelectasis in the left midlung. Disposition Clinical Impression: Acute bronchitis Disposition: HOME SELF-CARE Condition: Stable Instructions (If sedation given, give patient instructions): Acute Bronchitis (ED) Additional Instructions: Return to the ER immediately should you develop new or worsening pain, shortness of breath/difficulty breathing, a high fever, feeling dizzy or faint, or new or worsening symptoms. Follow-up closely with your primary care provider. Is patient prescribed a controlled substance at d/c from ED?: No Referrals: [facility] [Primary Care Provider] - 1-2 days Time of Disposition: 15:13
[2024-05-03] MEDS: IBUPROFEN 600 MG TAB PO STA (14:59)
--- NOTE | 2024-05-03 14:59 | XR ---
EXAMINATION TYPE: XR chest 2V DATE OF EXAM: 05/03/2024 2:54 PM COMPARISON: Multiple prior chest, there is a dated 04/30/2024. CLINICAL INDICATION: Female, 53 years old with history of persistent cough; [facility] TECHNIQUE: XR chest 2V Frontal and lateral views of the chest. FINDINGS: Lungs/Pleura: There is no evidence of pleural effusion, focal consolidation, or pneumothorax. Linear scarring/atelectasis in the mid left lung similar to prior studies. Pulmonary vascularity: Unremarkable. Heart/mediastinum: Borderline mild cardiomegaly. Median sternotomy wires present. Musculoskeletal: No acute osseous pathology. Other findings: None IMPRESSION: 1. No acute cardiopulmonary process. 2. Persistent mild linear scarring/atelectasis in the left midlung. [facility], , 05/03/2024 2:57 PM
[2024-05-03] MEDS: ACETAMINOPHEN TAB 500 MG TAB PO STA (15:00)
[2024-05-03 15:25] VITALS: BP 150/94; PULSE 62; RESP 18
== END 2024-05-03 15:25 | disposition home or self-care (01) ==
LOC: EC 14:11
DX: J20.9 Acute bronchitis, unspecified (principal); F17.290 Nicotine dependence, other tobacco product, uncomplicated; Z88.1 Allergy status to other antibiotic agents
CPT/HCPCS: 71046; 99285

== ENCOUNTER 2024-05-05 18:26 | Emergency (ER) | payer MEDICARE ==
[2024-05-05 18:38] VITALS: TEMP 98.3
--- NOTE | 2024-05-05 19:19 | ED ---
Recheck HPI - General Chief Complaint: Recheck/Abnormal Lab/Rx Stated Complaint: pain all over Time Seen by Provider: 05/05/24 19:18 Source: patient, RN notes reviewed, old records reviewed Mode of arrival: ambulatory Limitations: no limitations - History of Present Illness Initial Comments: This is a 53 female to the ER for evaluation. Patient presents today for evaluation regarding chronic pain -: days(s) Returns Today for: persistent/worsening pain related to initial visit Symptoms Since Prior Visit: worsening pain Associated Symptoms: none Treatments Prior to Arrival: Given Pain Meds on - Related Data Home Medications Medication Instructions Recorded Confirmed Atorvastatin [Lipitor] 80 mg PO HS 06/25/19 04/26/24 lisinopriL 40 mg PO DAILY 09/24/20 04/26/24 traZODone HCL 50 mg PO HS 01/11/21 04/26/24 Albuterol Inhaler [Ventolin Hfa 2 puff INHALATION RT-QID PRN 03/01/23 04/26/24 Inhaler] Insulin Glargine,Hum.rec.anlog 30 units SQ HS 07/30/23 04/26/24 [Lantus Solostar Pen] Ezetimibe [Zetia] 10 mg PO HS 02/17/24 04/26/24 Insulin Aspart (Niacinamide) 20 units SQ BID 02/17/24 04/26/24 [Fiasp 100 Unit/ml Flextouch Pen] Nystatin 100,000 Unit/gm Powd 1 applic TOPICAL BID PRN 02/17/24 04/26/24 [Mycostatin Powder] Pantoprazole [Protonix] 40 mg PO DAILY 02/17/24 04/26/24 Tirzepatide [Mounjaro] 2.5 mg SQ FR 04/26/24 04/26/24 Previous Rx's Medication Instructions Recorded amLODIPine [Norvasc] 10 mg PO DAILY #30 tab 03/11/23 hydrALAZINE HCL [Apresoline] 25 mg PO BID #60 tab 03/11/23 Ondansetron Odt [Zofran ODT] 4 mg PO Q8HR PRN #10 tab 03/29/24 Ibuprofen [Motrin] 600 mg PO Q8HR PRN 30 Days #30 tab 04/11/24 Famotidine [Pepcid] 20 mg PO DAILY #20 tablet 04/18/24 Albuterol Inhaler [Ventolin Hfa 1 - 2 puff INHALATION Q6H PRN #1 04/30/24 Inhaler] each Azithromycin [Zithromax] 250 mg PO DAILY 4 Days #4 tab 04/30/24 Allergies Allergy/AdvReac Type Severity Reaction Status Date / Time levofloxacin [From Levaquin] Allergy Rash/Hives Verified 05/08/24 16:53 Review of Systems ROS Statement: Those systems with pertinent positive or pertinent negative responses have been documented in the HPI. ROS Other: All systems not noted in ROS Statement are negative. Past Medical History Past Medical History: Diabetes Mellitus, GERD/Reflux, Hyperlipidemia, Hypertension, Syncope Additional Past Medical History / Comment(s): Pt recently admitted to [facility] on 07/21/21 with uncontrolled IDDM and hyperkalemia. Other hx: Recurrent pancreatitis, hypertriglyceridemia, elevated lipase, IDDM type II, UTI, chronic low back pain, bulging discs, dental abscesses in past. History of Any Multi-Drug Resistant Organisms: MRSA Date of last positivie culture/infection: 03/01/23 MDRO Source:: Abdomen Past Surgical History: Tubal Ligation Additional Past Surgical History / Comment(s): Age 7 had VSD repair, tumor removal 03/2023 Past Anesthesia/Blood Transfusion Reactions: No Reported Reaction Past Psychological History: No Psychological Hx Reported Smoking Status: Former smoker, Second hand smoke exposure, Vaper Past Alcohol Use History: None Reported Past Drug Use History: None Reported - Past Family History Mother Family Medical History: No Reported History Additional Family Medical History / Comment(s): Mother was healthy. She is , pt cannot recall cause of . Father Family Medical History: Pneumonia Additional Family Medical History / Comment(s): Father at the age of 67yrs from pneumonia General Exam Limitations: no limitations General appearance: alert, in no apparent distress Head exam: Present: atraumatic, normocephalic, normal inspection Eye exam: Present: normal appearance, PERRL, EOMI. Absent: scleral icterus, conjunctival injection, periorbital swelling ENT exam: Present: normal exam, mucous membranes moist Neck exam: Present: normal inspection. Absent: tenderness, meningismus, lymphadenopathy Respiratory exam: Present: normal lung sounds bilaterally. Absent: respiratory distress, wheezes, rales, rhonchi, stridor Cardiovascular Exam: Present: regular rate, normal rhythm, normal heart sounds. Absent: systolic murmur, diastolic murmur, rubs, gallop, clicks GI/Abdominal exam: Present: soft, normal bowel sounds. Absent: distended, tenderness, guarding, rebound, rigid Extremities exam: Present: normal inspection, full ROM, normal capillary refill. Absent: tenderness, pedal edema, joint swelling, calf tenderness Back exam: Present: normal inspection Neurological exam: Present: alert, oriented X3, CN II-XII intact Psychiatric exam: Present: normal affect, normal mood Skin exam: Present: warm, dry, intact, normal color. Absent: rash Course Vital Signs 05/05/24 05/05/24 18:35 20:08 Temperature 98.3 F Pulse Rate 74 78 Respiratory 20 18 Rate Blood Pressure 147/86 157/98 O2 Sat by Pulse 96 98 Oximetry - Reevaluation(s) Reevaluation #1: 05/05/24 19:56 Records reviewed Reevaluation #2: 05/05/24 19:56 Patient symptoms improved Reevaluation #3: 05/05/24 19:56 Informed of results and questions answered Reevaluation #4: Was pt. sent in by a medical professional or institution (, PA, ARBORIST CLIMBER, urgent care, hospital, or [place] health [place] facility...) When possible be specific @ -no Did you speak to anyone other than the patient for history (EMS, parent, family, police, friend...)? What history was obtained from this source @ -no Did you review nursing and triage notes (agree or disagree)? Why? @ -agree Are old charts reviewed (outside hosp., previous admission, EMS record, old EKG, old radiological studies, urgent care reports/EKG's, [place] health [facility] facility records)? Report findings @ -yes Differential Diagnosis (chest pain, altered mental status, abdominal pain women, abdominal pain men, vaginal bleeding, weakness, fever, dyspnea, syncope, headache, dizziness, GI bleed, back pain, seizure, CVA, palpatations, mental health, musculoskeletal)? @ -prior EKG interpreted by me (3pts min.). @ -no X-rays interpreted by me (1pt min.). @ -no CT interpreted by me (1pt min.). @ -no U/S interpreted by me (1pt. min.). @ -no What testing was considered but not performed or refused? (CT, X-rays, U/S, labs)? Why? @ -none What meds were considered but not given or refused? Why? @ -none Did you discuss the management of the patient with other professionals (professionals i.e. , PA, ARBORIST CLIMBER, lab, RT, psych nurse, social media marketing specialist, manager of pmo, teacher, president and chief commercial officer, top case assembler)? Give summary @ -no Was smoking cessation discussed for >3mins.? @ -no Was critical care preformed (if so, how long)? @ -no Were there social determinants of health that impacted care today? How? (Homelessness, low income, unemployed, alcoholism, drug addiction, transport ation, low edu. Level, literacy, decrease access to med. care, [facility], rehab)? @ -none Was there de-escalation of care discussed even if they declined (Discuss DNR or withdrawal of care, Hospice)? DNR status @ -no What co-morbidities impacted this encounter? (DM, HTN, Smoking, COPD, CAD, Cancer, CVA, ARF, Chemo, Hep., AIDS, mental health diagnosis, sleep apnea, morbid obesity)? @ -none Was patient admitted / discharged? Hospital course, mention meds given and route, prescriptions, significant lab abnormalities, going to OR and other pertinent info. @ - 53 female to the ER for evaluation patient notes today for evaluation of chronic pain patient given pain control can be discharged Discharge Undiagnosed new problem with uncertain prognosis? @ -no Drug Therapy requiring intensive monitoring for toxicity (Heparin, Nitro, Insulin, Cardizem)? @ -no Were any procedures done? @ -no Diagnosis/symptom? @ -Chronic pain Acute, or Chronic, or Acute on Chronic? @ -Acute Uncomplicated (without systemic symptoms) or Complicated (systemic symptoms)? @ -Complicated Side effects of treatment? @ -no Exacerbation, Progression, or Severe Exacerbation? @ -exacerbation Poses a threat to life or bodily function? How? (Chest pain, [place], [place], pneumonia, PE, COPD, DKA, ARF, appy, cholecystitis, CVA, Diverticulitis, Homicidal, Suicidal, threat to staff... and all critical care pts) @ -no Medical Decision Making - Medical Decision Making 53 female to the ER for evaluation patient notes today for evaluation of chronic pain patient given pain control can be discharged Disposition Clinical Impression: Weakness Disposition: ADMITTED IP TO THIS HOSP Condition: Fair Referrals: [facility] [Primary Care Provider] - 1-2 days Time of Disposition: 20:00
[2024-05-05 20:10] VITALS: BP 157/98; PULSE 78; RESP 18
[2024-05-05] MEDS: HYDROmorphone 1 MG/ML 1 ML SYRINGE IM STA (20:10)
== END 2024-05-05 20:20 | disposition other institution (70) ==
LOC: EC 18:26
DX: G89.29 Other chronic pain (principal); R53.1 Weakness; F17.290 Nicotine dependence, other tobacco product, uncomplicated; Z88.1 Allergy status to other antibiotic agents
CPT/HCPCS: 99283; 96372; J1171

== ENCOUNTER 2024-05-08 16:51 | Emergency (ER) | payer MEDICARE ==
[2024-05-08 16:57] VITALS: TEMP 98.5
[2024-05-08 16:57] LABS: Glucose,Whole Blood >600 mg/dL (70-110)
--- NOTE | 2024-05-08 17:21 | ED ---
Abdominal Pain HPI - General Chief Complaint: Abdominal Pain Stated Complaint: abd pain Time Seen by Provider: 05/08/24 17:19 Source: patient, EMS, RN notes reviewed Mode of arrival: EMS Limitations: no limitations - History of Present Illness Initial Comments: 53-year-old female with history of uncontrolled type 2 diabetes well-known to the ER presenting for abdominal pain x 1 day with diarrhea. States she had eggs for breakfast and a TV dinner for lunch and took her insulin as she was supposed to after lunch. States her blood sugars have been in the 500s all day. Denies chest pain or shortness of breath. - Related Data Home Medications Medication Instructions Recorded Confirmed Atorvastatin [Lipitor] 80 mg PO HS 06/25/19 04/26/24 lisinopriL 40 mg PO DAILY 09/24/20 04/26/24 traZODone HCL 50 mg PO HS 01/11/21 04/26/24 Albuterol Inhaler [Ventolin Hfa 2 puff INHALATION RT-QID PRN 03/01/23 04/26/24 Inhaler] Insulin Glargine,Hum.rec.anlog 30 units SQ HS 07/30/23 04/26/24 [Lantus Solostar Pen] Ezetimibe [Zetia] 10 mg PO HS 02/17/24 04/26/24 Insulin Aspart (Niacinamide) 20 units SQ BID 02/17/24 04/26/24 [Fiasp 100 Unit/ml Flextouch Pen] Nystatin 100,000 Unit/gm Powd 1 applic TOPICAL BID PRN 02/17/24 04/26/24 [Mycostatin Powder] Pantoprazole [Protonix] 40 mg PO DAILY 02/17/24 04/26/24 Tirzepatide [Mounjaro] 2.5 mg SQ FR 04/26/24 04/26/24 Previous Rx's Medication Instructions Recorded amLODIPine [Norvasc] 10 mg PO DAILY #30 tab 03/11/23 hydrALAZINE HCL [Apresoline] 25 mg PO BID #60 tab 03/11/23 Ondansetron Odt [Zofran ODT] 4 mg PO Q8HR PRN #10 tab 03/29/24 Ibuprofen [Motrin] 600 mg PO Q8HR PRN 30 Days #30 tab 04/11/24 Famotidine [Pepcid] 20 mg PO DAILY #20 tablet 04/18/24 Albuterol Inhaler [Ventolin Hfa 1 - 2 puff INHALATION Q6H PRN #1 04/30/24 Inhaler] each Azithromycin [Zithromax] 250 mg PO DAILY 4 Days #4 tab 04/30/24 Allergies Allergy/AdvReac Type Severity Reaction Status Date / Time levofloxacin [From Levaquin] Allergy Rash/Hives Verified 05/08/24 16:53 Review of Systems ROS Statement: Those systems with pertinent positive or pertinent negative responses have been documented in the HPI. ROS Other: All systems not noted in ROS Statement are negative. Past Medical History Past Medical History: Diabetes Mellitus, GERD/Reflux, Hyperlipidemia, Hypertension, Syncope Additional Past Medical History / Comment(s): Pt recently admitted to [facility] on 07/21/21 with uncontrolled IDDM and hyperkalemia. Other hx: Recurrent pancreatitis, hypertriglyceridemia, elevated lipase, IDDM type II, UTI, chronic low back pain, bulging discs, dental abscesses in past. History of Any Multi-Drug Resistant Organisms: MRSA Date of last positivie culture/infection: 03/01/23 MDRO Source:: Abdomen Past Surgical History: Tubal Ligation Additional Past Surgical History / Comment(s): Age 7 had VSD repair, tumor removal 03/2023 Past Anesthesia/Blood Transfusion Reactions: No Reported Reaction Past Psychological History: No Psychological Hx Reported Smoking Status: Former smoker, Second hand smoke exposure, Vaper Past Alcohol Use History: None Reported Past Drug Use History: None Reported - Past Family History Mother Family Medical History: No Reported History Additional Family Medical History / Comment(s): Mother was healthy. She is , pt cannot recall cause of . Father Family Medical History: Pneumonia Additional Family Medical History / Comment(s): Father at the age of 67yrs from pneumonia General Exam Limitations: no limitations General appearance: alert, in no apparent distress Head exam: Present: atraumatic, normocephalic, normal inspection Eye exam: Present: normal appearance, PERRL, EOMI. Absent: scleral icterus, conjunctival injection, periorbital swelling ENT exam: Present: normal exam, mucous membranes moist Respiratory exam: Present: normal lung sounds bilaterally. Absent: respiratory distress, wheezes, rales, rhonchi, stridor Cardiovascular Exam: Present: regular rate, normal rhythm, normal heart sounds. Absent: systolic murmur, diastolic murmur, rubs, gallop, clicks GI/Abdominal exam: Present: soft, normal bowel sounds. Absent: distended, tenderness, guarding, rebound, rigid Neurological exam: Present: alert, oriented X3 Psychiatric exam: Present: normal affect, normal mood Skin exam: Present: warm, dry, intact, normal color. Absent: rash Course Vital Signs 05/08/24 05/08/24 16:53 18:56 Temperature 98.5 F Pulse Rate 80 8 L Respiratory 18 18 Rate Blood Pressure 150/77 147/63 O2 Sat by Pulse 96 97 Oximetry Medical Decision Making - Medical Decision Making Was pt. sent in by a medical professional or institution (, PA, BUTT MAKER, urgent care, hospital, or usp...) When possible be specific @ -No Did you speak to anyone other than the patient for history (EMS, parent, family, police, friend...)? What history was obtained from this source @ -No Did you review nursing and triage notes (agree or disagree)? Why? @ -I reviewed and agree with nursing and triage notes Were old charts reviewed (outside hosp., previous admission, EMS record, old EKG, old radiological studies, urgent care reports/EKG's, usp records)? Report findings @ -No old charts were reviewed Differential Diagnosis (chest pain, altered mental status, abdominal pain women, abdominal pain men, vaginal bleeding, weakness, fever, dyspnea, syncope, headache, dizziness, GI bleed, back pain, seizure, CVA, palpatations, mental health, musculoskeletal)? @ -Differential Abdominal Pain Women: Appendicitis, Cholecystitis, diverticulosis, ischemic bowel, pancreatitis, hepatitis, UTI, gastroenteritis, AAA, incarcerated hernia, bowel obstruction, constipation, inflammatory bowel, hepatitis, peptic ulcer disease, splenic infarction, perforated viscus, vulvitis, ovarian torsion, PID, kidney stone, placenta abruption, this is not meant to be an all-inclusive list EKG interpreted by me (3pts min.). @ -As above X-rays interpreted by me (1pt min.). @ -None done CT interpreted by me (1pt min.). @ -None done U/S interpreted by me (1pt. min.). @ -None done What testing was considered but not performed or refused? (CT, X-rays, U/S, labs)? Why? @ -None What meds were considered but not given or refused? Why? @ -None Did you discuss the management of the patient with other professionals (professionals i.e. , PA, BUTT MAKER, lab, RT, psych nurse, long term care social worker, lock installer, teacher, strike warfare/missile systems officer, special education case manager)? Give summary @ -No Was smoking cessation discussed for >3mins.? @ -No Was critical care preformed (if so, how long)? @ -No Were there social determinants of health that impacted care today? How? ( Homelessness, low income, unemployed, alcoholism, drug addiction, transportation, low edu. Level, literacy, decrease access to med. care, penitentiary, rehab)? @ -No Was there de-escalation of care discussed even if they declined (Discuss DNR or withdrawal of care, Hospice)? DNR status @ -No What co-morbidities impacted this encounter? (DM, HTN, Smoking, COPD, CAD, Cancer, CVA, ARF, Chemo, Hep., AIDS, mental health diagnosis, sleep apnea, morbid obesity)? @ -DM Was patient admitted / discharged? Hospital course, mention meds given and route, prescriptions, significant lab abnormalities, going to OR and other pertinent info. @ -Discharge. This is a 53-year-old female with uncontrolled type 2 diabetes presenting for abdominal pain x 1 day. In triage, glucose was found to be greater than 600. Vital signs within acceptable limits. Patient was started on 2 L IV fluid bolus. Lab work remarkable for blood glucose 613, lactic acid 3.4, potassium 5.5, pseudo hyponatremia at 127 however corrected value is 135. It does not appear that patient is in DKA at this time as acetone is negative there are no ketones in the urine and anion gap is 12. Patient was given 10 units of IV insulin. Upon recheck, blood glucose is 401. Patient was given an additional 10 units of insulin and reports improvement in symptoms. Patient can be safely discharged home. Case was discussed with my ED attending Dr. Hernandez. Undiagnosed new problem with uncertain prognosis? @ -No Drug Therapy requiring intensive monitoring for toxicity (Heparin, Nitro, Insulin, Cardizem)? @ -No Were any procedures done? @ -No Diagnosis/symptom? @ -Hyperglycemia Acute, or Chronic, or Acute on Chronic? @ -Acute Uncomplicated (without systemic symptoms) or Complicated (systemic symptoms)? @ -Complicated Side effects of treatment? @ -No Exacerbation, Progression, or Severe Exacerbation? @ -No Poses a threat to life or bodily function? How? (Chest pain, USA, ID, pneumonia, PE, COPD, DKA, ARF, appy, cholecystitis, CVA, Diverticulitis, Homicidal, Suicidal, threat to staff... and all critical care pts) @ -Not at this time - Lab Data Result diagrams: 05/08/24 17:16 05/08/24 17:16 Lab Results 05/08/24 05/08/24 05/08/24 Range/Units 16:55 17:16 17:16 WBC 10.1 (3.8-10.6) k/uL RBC 4.97 (3.80-5.40) m/uL Hgb 13.6 (11.4-16.0) gm/dL Hct 41.9 (34.0-46.0) % MCV 84.3 (80.0-100.0) fL MCH 27.3 (25.0-35.0) pg MCHC 32.4 (31.0-37.0) g/dL RDW 16.5 H (11.5-15.5) % Plt Count 688 H (150-450) k/uL MPV 6.7 Neutrophils % 63 % Lymphocytes % 29 % Monocytes % 4 % Eosinophils % 3 % Basophils % 1 % Neutrophils # 6.3 (1.3-7.7) k/uL Lymphocytes # 2.9 (1.0-4.8) k/uL Monocytes # 0.4 (0-1.0) k/uL Eosinophils # 0.3 (0-0.7) k/uL Basophils # 0.1 (0-0.2) k/uL Hypochromasia Slight Anisocytosis Slight VBG pH (7.31-7.41) VBG pCO2 (37-51) mmHg VBG HCO3 (24-28) mmol/L Sodium 127 L (137-145) mmol/L Potassium 5.5 H (3.5-5.1) mmol/L Chloride 96 L (98-107) mmol/L Carbon Dioxide 19 L (22-30) mmol/L Anion Gap 12 mmol/L BUN 19 H (7-17) mg/dL Creatinine 0.75 (0.52-1.04) mg/dL Est GFR (CKD-EPI)AfAm >90 (>60 ml/min/1.73 sqM) Est GFR (CKD-EPI)NonAf >90 (>60 ml/min/1.73 sqM) Glucose 613 H* (74-99) mg/dL POC Glucose (mg/dL) >600 H* (70-110) mg/dL POC Glu Log Driver ID Pk Bernardo Lactic Ac Sepsis Rflx Plasma Lactic Acid Travon (0.7-2.0) mmol/L Calcium 9.1 (8.4-10.2) mg/dL Total Bilirubin 0.4 (0.2-1.3) mg/dL AST 24 (14-36) U/L ALT 20 (4-34) U/L Alkaline Phosphatase 142 H (38-126) U/L Total Protein 6.9 (6.3-8.2) g/dL Albumin 4.0 (3.5-5.0) g/dL Urine Color Urine Appearance (Clear) Urine pH (5.0-8.0) Ur Specific [place] (1.001-1.035) Urine Protein (Negative) Urine Glucose (UA) (Negative) Urine Ketones (Negative) Urine Blood (Negative) Urine Nitrite (Negative) Urine Bilirubin (Negative) Urine Urobilinogen (<2.0) mg/dL Ur Leukocyte Esterase (Negative) Urine RBC (0-5) /hpf Urine WBC (0-5) /hpf Ur Squamous Epith Cells (0-4) /hpf Acetone, Qual Negative (Negative) Influenza Type A (PCR) (Not Detectd) Influenza Type B (PCR) (Not Detectd) RSV (PCR) (Not Detectd) SARS-CoV-2 (PCR) (Not Detectd) 05/08/24 05/08/24 05/08/24 Range/Units 17:16 17:16 17:17 WBC (3.8-10.6) k/uL RBC (3.80-5.40) m/uL Hgb (11.4-16.0) gm/dL Hct (34.0-46.0) % MCV (80.0-100.0) fL MCH (25.0-35.0) pg MCHC (31.0-37.0) g/dL RDW (11.5-15.5) % Plt Count (150-450) k/uL MPV Neutrophils % % Lymphocytes % % Monocytes % % Eosinophils % % Basophils % % Neutrophils # (1.3-7.7) k/uL Lymphocytes # (1.0-4.8) k/uL Monocytes # (0-1.0) k/uL Eosinophils # (0-0.7) k/uL Basophils # (0-0.2) k/uL Hypochromasia Anisocytosis VBG pH 7.36 (7.31-7.41) VBG pCO2 40 (37-51) mmHg VBG HCO3 23 L (24-28) mmol/L Sodium (137-145) mmol/L Potassium (3.5-5.1) mmol/L Chloride (98-107) mmol/L Carbon Dioxide (22-30) mmol/L Anion Gap mmol/L BUN (7-17) mg/dL Creatinine (0.52-1.04) mg/dL Est GFR (CKD-EPI)AfAm (>60 ml/min/1.73 sqM) Est GFR (CKD-EPI)NonAf (>60 ml/min/1.73 sqM) Glucose (74-99) mg/dL POC Glucose (mg/dL) (70-110) mg/dL POC Glu Log Driver ID Lactic Ac Sepsis Rflx Plasma Lactic Acid Travon 3.4 H* (0.7-2.0) mmol/L Calcium (8.4-10.2) mg/dL Total Bilirubin (0.2-1.3) mg/dL AST (14-36) U/L ALT (4-34) U/L Alkaline Phosphatase (38-126) U/L Total Protein (6.3-8.2) g/dL Albumin (3.5-5.0) g/dL Urine Color Urine Appearance (Clear) Urine pH (5.0-8.0) Ur Specific [place] (1.001-1.035) Urine Protein (Negative) Urine Glucose (UA) (Negative) Urine Ketones (Negative) Urine Blood (Negative) Urine Nitrite (Negative) Urine Bilirubin (Negative) Urine Urobilinogen (<2.0) mg/dL Ur Leukocyte Esterase (Negative) Urine RBC (0-5) /hpf Urine WBC (0-5) /hpf Ur Squamous Epith Cells (0-4) /hpf Acetone, Qual (Negative) Influenza Type A (PCR) Not Detected (Not Detectd) Influenza Type B (PCR) Not Detected (Not Detectd) RSV (PCR) Not Detected (Not Detectd) SARS-CoV-2 (PCR) Not Detected (Not Detectd) 05/08/24 05/08/24 05/08/24 Range/Units 18:45 19:00 20:13 WBC (3.8-10.6) k/uL RBC (3.80-5.40) m/uL Hgb (11.4-16.0) gm/dL Hct (34.0-46.0) % MCV (80.0-100.0) fL MCH (25.0-35.0) pg MCHC (31.0-37.0) g/dL RDW (11.5-15.5) % Plt Count (150-450) k/uL MPV Neutrophils % % Lymphocytes % % Monocytes % % Eosinophils % % Basophils % % Neutrophils # (1.3-7.7) k/uL Lymphocytes # (1.0-4.8) k/uL Monocytes # (0-1.0) k/uL Eosinophils # (0-0.7) k/uL Basophils # (0-0.2) k/uL Hypochromasia Anisocytosis VBG pH (7.31-7.41) VBG pCO2 (37-51) mmHg VBG HCO3 (24-28) mmol/L Sodium (137-145) mmol/L Potassium (3.5-5.1) mmol/L Chloride (98-107) mmol/L Carbon Dioxide (22-30) mmol/L Anion Gap mmol/L BUN (7-17) mg/dL Creatinine (0.52-1.04) mg/dL Est GFR (CKD-EPI)AfAm (>60 ml/min/1.73 sqM) Est GFR (CKD-EPI)NonAf (>60 ml/min/1.73 sqM) Glucose (74-99) mg/dL POC Glucose (mg/dL) 401 H (70-110) mg/dL POC Glu Log Driver ID Bousley John Lactic Ac Sepsis Rflx Y Plasma Lactic Acid Travon (0.7-2.0) mmol/L Calcium (8.4-10.2) mg/dL Total Bilirubin (0.2-1.3) mg/dL AST (14-36) U/L ALT (4-34) U/L Alkaline Phosphatase (38-126) U/L Total Protein (6.3-8.2) g/dL Albumin (3.5-5.0) g/dL Urine Color Colorless Urine Appearance Clear (Clear) Urine pH 5.5 (5.0-8.0) Ur Specific [place] 1.020 (1.001-1.035) Urine Protein 1+ H (Negative) Urine Glucose (UA) 4+ H (Negative) Urine Ketones Negative (Negative) Urine Blood Negative (Negative) Urine Nitrite Negative (Negative) Urine Bilirubin Negative (Negative) Urine Urobilinogen <2.0 (<2.0) mg/dL Ur Leukocyte Esterase Negative (Negative) Urine RBC <1 (0-5) /hpf Urine WBC <1 (0-5) /hpf Ur Squamous Epith Cells 1 (0-4) /hpf Acetone, Qual (Negative) Influenza Type A (PCR) (Not Detectd) Influenza Type B (PCR) (Not Detectd) RSV (PCR) (Not Detectd) SARS-CoV-2 (PCR) (Not Detectd) - EKG Data -: EKG Interpreted by Me EKG Comments: EKG reveals normal sinus rhythm with no ST changes. Ventricular rate 78 bpm, IA interval 133, QRS duration 84, QT/QTc 374/407 Disposition Clinical Impression: Hyperglycemia Disposition: HOME SELF-CARE Condition: Stable Instructions (If sedation given, give patient instructions): Diabetic Hyperglycemia (ED) Additional Instructions: Please return to the Emergency Department if symptoms worsen or any other concerns. Is patient prescribed a controlled substance at d/c from ED?: No Referrals: [facility] [Primary Care Provider] - 1-2 days Time of Disposition: 20:20
[2024-05-08 18:28] LABS: VBG PH 7.36 (7.31-7.41)
[2024-05-08 18:30] LABS: Anisocytosis Slight; Basophils # (A) 0.1 k/uL (0-0.2); Basophils % (A) 1 %; Eosinophils # (A) 0.3 k/uL (0-0.7); Eosinophils % (A) 3 %; HCT 41.9 % (34.0-46.0); HGB 13.6 gm/dL (11.4-16.0); Hypochromasia Slight; Lymphocytes # (A) 2.9 k/uL (1.0-4.8); Lymphocytes % (A) 29 %; MCH 27.3 pg (25.0-35.0); MCHC 32.4 g/dL (31.0-37.0); MCV 84.3 fL (80.0-100.0); Mean Platelet Volume 6.7; Monocytes # (A) 0.4 k/uL (0-1.0); Monocytes % (A) 4 %; Neutrophils # (A) 6.3 k/uL (1.3-7.7); Neutrophils % (A) 63 %; Platelet Count 688 k/uL (150-450); RBC 4.97 m/uL (3.80-5.40); RDW 16.5 % (11.5-15.5); WBC 10.1 k/uL (3.8-10.6)
[2024-05-08 18:33] LABS: Influenza A Not Detected (Not Detectd); Influenza B Not Detected (Not Detectd); RSV Not Detected (Not Detectd)
[2024-05-08 18:41] LABS: ALT 20 U/L (4-34); AST 24 U/L (14-36); African American GFR (CKD) >90 (>60 ml/min/1.73 sqM); Alkaline Phosphatase 142 U/L (38-126); Anion Gap 12 mmol/L; Blood Urea Nitrogen 19 mg/dL (7-17); Calcium 9.1 mg/dL (8.4-10.2); Carbon Dioxide 19 mmol/L (22-30); Chloride 96 mmol/L (98-107); Non-African American GFR(CKD) >90 (>60 ml/min/1.73 sqM); Potassium 5.5 mmol/L (3.5-5.1); Sodium 127 mmol/L (137-145); Total Bilirubin 0.4 mg/dL (0.2-1.3); Total Protein 6.9 g/dL (6.3-8.2)
[2024-05-08 19:01] LABS: Glucose 613 mg/dL (74-99)
[2024-05-08] MEDS: SODIUM CHLORIDE 0.9% 1,000 ML IV STA ×2 (19:02→19:27)
[2024-05-08] MEDS: INSULIN REGULAR 100 UNIT/ML VIAL (IV) IV ONE ×3 (19:25→21:11)
[2024-05-08 19:48] LABS: Appearance,Urine Clear (Clear); Bilirubin,Urine Negative (Negative); Blood,Urine Negative (Negative); Color,Urine Colorless; Glucose,Urine (UA) 4+ (Negative); Ketones,Urine Negative (Negative); Leukocyte Esterase,Urine Negative (Negative); Nitrite,Urine Negative (Negative); PH, Urine 5.5 (5.0-8.0); Protein,Urine 1+ (Negative); RBC,Urine <1 /hpf (0-5); Squamous Epithelial Cell,Urine 1 /hpf (0-4); Urobilinogen,Urine <2.0 mg/dL (<2.0); WBC,Urine <1 /hpf (0-5)
[2024-05-08 20:14] LABS: Glucose,Whole Blood 401 mg/dL (70-110)
[2024-05-08] MEDS: KETOROLAC 15 MG/ML 1 ML VIAL IVP STA (21:07)
[2024-05-08 22:44] VITALS: BP 130/68; PULSE 78; RESP 17
== END 2024-05-08 22:49 | disposition home or self-care (01) ==
LOC: EC 16:51
DX: E11.65 Type 2 diabetes mellitus with hyperglycemia (principal); R10.9 Unspecified abdominal pain; F17.290 Nicotine dependence, other tobacco product, uncomplicated; Z88.1 Allergy status to other antibiotic agents; Z11.52 Encounter for screening for COVID-19
CPT/HCPCS: 36415; 93005; 80053; 82803; 82009; 83605; 85025; 81001; 87636; 99284; 96374; 96361 ×3; J1885

== ENCOUNTER 2024-05-25 16:37 | Emergency (ER) | payer MEDICARE ==
[2024-05-25 17:21] VITALS: BP 128/78; PULSE 75; RESP 16; TEMP 97.9
--- NOTE | 2024-05-25 23:10 | ED ---
Dizziness HPI - General Chief Complaint: Dizziness Stated Complaint: feeling unwell Time Seen by Provider: 05/25/24 22:18 Source: patient, RN notes reviewed, old records reviewed Mode of arrival: EMS Limitations: no limitations - History of Present Illness Initial Comments: This is a 53-year-old female to the ER for evaluation patient well-known to our emergency room and complaining of pain chronic pain abdominal pain chest pain not feeling MD Complaint: dizziness, lightheadedness -: hour(s) History of Trauma: No Severity: mild Improves With: nothing Worsens With: nothing Associated Symptoms: denies other symptoms - Related Data Home Medications Medication Instructions Recorded Confirmed Atorvastatin [Lipitor] 80 mg PO HS 06/25/19 04/26/24 lisinopriL 40 mg PO DAILY 09/24/20 04/26/24 traZODone HCL 50 mg PO HS 01/11/21 04/26/24 Albuterol Inhaler [Ventolin Hfa 2 puff INHALATION RT-QID PRN 03/01/23 04/26/24 Inhaler] Insulin Glargine,Hum.rec.anlog 30 units SQ HS 07/30/23 04/26/24 [Lantus Solostar Pen] Ezetimibe [Zetia] 10 mg PO HS 02/17/24 04/26/24 Insulin Aspart (Niacinamide) 20 units SQ BID 02/17/24 04/26/24 [Fiasp 100 Unit/ml Flextouch Pen] Nystatin 100,000 Unit/gm Powd 1 applic TOPICAL BID PRN 02/17/24 04/26/24 [Mycostatin Powder] Pantoprazole [Protonix] 40 mg PO DAILY 02/17/24 04/26/24 Tirzepatide [Mounjaro] 2.5 mg SQ FR 04/26/24 04/26/24 Previous Rx's Medication Instructions Recorded amLODIPine [Norvasc] 10 mg PO DAILY #30 tab 03/11/23 hydrALAZINE HCL [Apresoline] 25 mg PO BID #60 tab 03/11/23 Ondansetron Odt [Zofran ODT] 4 mg PO Q8HR PRN #10 tab 03/29/24 Ibuprofen [Motrin] 600 mg PO Q8HR PRN 30 Days #30 tab 04/11/24 Famotidine [Pepcid] 20 mg PO DAILY #20 tablet 04/18/24 Albuterol Inhaler [Ventolin Hfa 1 - 2 puff INHALATION Q6H PRN #1 04/30/24 Inhaler] each Azithromycin [Zithromax] 250 mg PO DAILY 4 Days #4 tab 04/30/24 Doxycycline Hyclate 100 mg PO BID #14 tab 05/14/24 Allergies Allergy/AdvReac Type Severity Reaction Status Date / Time levofloxacin [From Levaquin] Allergy Rash/Hives Verified 05/29/24 12:38 Review of Systems ROS Statement: Those systems with pertinent positive or pertinent negative responses have been documented in the HPI. ROS Other: All systems not noted in ROS Statement are negative. Past Medical History Past Medical History: Diabetes Mellitus, GERD/Reflux, Hyperlipidemia, Hypertension, Syncope Additional Past Medical History / Comment(s): Pt recently admitted to [facility] on 07/21/21 with uncontrolled IDDM and hyperkalemia. Other hx: Recurrent pancreatitis, hypertriglyceridemia, elevated lipase, IDDM type II, UTI, chronic low back pain, bulging discs, dental abscesses in past. History of Any Multi-Drug Resistant Organisms: MRSA Date of last positivie culture/infection: 03/01/23 MDRO Source:: Abdomen Past Surgical History: Tubal Ligation Additional Past Surgical History / Comment(s): Age 7 had VSD repair, tumor removal 03/2023 Past Anesthesia/Blood Transfusion Reactions: No Reported Reaction Past Psychological History: No Psychological Hx Reported Smoking Status: Former smoker, Second hand smoke exposure, Vaper Past Alcohol Use History: None Reported Past Drug Use History: None Reported - Past Family History Mother Family Medical History: No Reported History Additional Family Medical History / Comment(s): Mother was healthy. She is , pt cannot recall cause of . Father Family Medical History: Pneumonia Additional Family Medical History / Comment(s): Father at the age of 67yrs from pneumonia General Exam Limitations: no limitations General appearance: alert, in no apparent distress Head exam: Present: atraumatic, normocephalic, normal inspection Eye exam: Present: normal appearance, PERRL, EOMI. Absent: scleral icterus, conjunctival injection, periorbital swelling ENT exam: Present: normal exam, mucous membranes moist Neck exam: Present: normal inspection. Absent: tenderness, meningismus, lymphadenopathy Respiratory exam: Present: normal lung sounds bilaterally. Absent: respiratory distress, wheezes, rales, rhonchi, stridor Cardiovascular Exam: Present: regular rate, normal rhythm, normal heart sounds. Absent: systolic murmur, diastolic murmur, rubs, gallop, clicks GI/Abdominal exam: Present: soft, normal bowel sounds. Absent: distended, tend erness, guarding, rebound, rigid Extremities exam: Present: normal inspection, full ROM, normal capillary refill. Absent: tenderness, pedal edema, joint swelling, calf tenderness Back exam: Present: normal inspection Neurological exam: Present: alert, oriented X3, CN II-XII intact Psychiatric exam: Present: normal affect, normal mood Skin exam: Present: warm, dry, intact, normal color. Absent: rash Course Vital Signs 05/25/24 17:19 Temperature 97.9 F Pulse Rate 75 Respiratory 16 Rate Blood Pressure 128/78 O2 Sat by Pulse 98 Oximetry - Reevaluation(s) Reevaluation #1: 05/26/24 00:58 Medical record is reviewed Reevaluation #2: 05/26/24 00:59 Patient symptoms are improved Reevaluation #3: 05/26/24 00:59 Informed of results and questions answered Reevaluation #4: Was pt. sent in by a medical professional or institution (, PA, MEDICINE ASSISTANT, urgent care, hospital, or fdc...) When possible be specific @ -no Did you speak to anyone other than the patient for history (EMS, parent, family, police, friend...)? What history was obtained from this source @ -no Did you review nursing and triage notes (agree or disagree)? Why? @ -agree Are old charts reviewed (outside hosp., previous admission, EMS record, old EKG, old radiological studies, urgent care reports/EKG's, fdc records)? Report findings @ -yes Differential Diagnosis (chest pain, altered mental status, abdominal pain women, abdominal pain men, vaginal bleeding, weakness, fever, dyspnea, syncope, he adache, dizziness, GI bleed, back pain, seizure, CVA, palpatations, mental health, musculoskeletal)? @ -prior EKG interpreted by me (3pts min.). @ -no X-rays interpreted by me (1pt min.). @ -no CT interpreted by me (1pt min.). @ -no U/S interpreted by me (1pt. min.). @ -no What testing was considered but not performed or refused? (CT, X-rays, U/S, labs)? Why? @ -none What meds were considered but not given or refused? Why? @ -none Did you discuss the management of the patient with other professionals (professionals i.e. Dr., PA, MEDICINE ASSISTANT, lab, RT, psych nurse, social studies department chair, biofuels production manager, teacher, multisensor intelligence officer, binder caser)? Give summary @ -no Was smoking cessation discussed for >3mins.? @ -no Was critical care preformed (if so, how long)? @ -no Were there social determinants of health that impacted care today? How? (Homelessness, low income, unemployed, alcoholism, drug addiction, transportation, low edu. Level, literacy, decrease access to med. care, fpc, rehab)? @ -none Was there de-escalation of care discussed even if they declined (Discuss DNR or withdrawal of care, Hospice)? DNR status @ -no What co-morbidities impacted this encounter? (DM, HTN, Smoking, COPD, CAD, Cance r, CVA, ARF, Chemo, Hep., AIDS, mental health diagnosis, sleep apnea, morbid obesity)? @ -none Was patient admitted / discharged? Hospital course, mention meds given and route, prescriptions, significant lab abnormalities, going to OR and other pertinent info. @ - 53 female with pain acute on chronic pain with no acute findings. Exam is normal patient feels well can be discharged home Discharge Undiagnosed new problem with uncertain prognosis? @ -no Drug Therapy requiring intensive monitoring for toxicity (Heparin, Nitro, Insulin, Cardizem)? @ -no Were any procedures done? @ -no Diagnosis/symptom? @ -acute on chronic pain Acute, or Chronic, or Acute on Chronic? @ -Acute Uncomplicated (without systemic symptoms) or Complicated (systemic symptoms)? @ -Complicated Side effects of treatment? @ -no Exacerbation, Progression, or Severe Exacerbation? @ -exacerbation Poses a threat to life or bodily function? How? (Chest pain, USA, SD, pneumonia, PE, COPD, DKA, ARF, appy, cholecystitis, CVA, Diverticulitis, Homicidal, Suicidal, threat to staff... and all critical care pts) @ -no Reevaluation #5: Differential Weakness: Hypoglycemia, shock, sepsis, hyponatremia, anemia, infection, SD, ETOH, adverse medicine reaction, overdose, stroke, this is not meant to be an all-inclusive list. Medical Decision Making - Medical Decision Making 53 female with pain acute on chronic pain with no acute findings. Exam is normal patient feels well can be discharged home Disposition Clinical Impression: Abdominal pain of unknown cause, Chronic pain Disposition: HOME SELF-CARE Condition: Good Instructions (If sedation given, give patient instructions): Abdominal Pain (ED) Is patient prescribed a controlled substance at d/c from ED?: No Referrals: None,Stated [Primary Care Provider] - 1-2 days Time of Disposition: 23:10
[2024-05-25] MEDS: IBUPROFEN 600 MG STARTER PACK 4 TAB BTL PO STA (23:29)
[2024-05-25] MEDS: ACET/COD 300 MG/30 MG STARTER PACK 6 TAB BTL PO STA (23:29)
[2024-05-25] MEDS: traMADol 50 MG STARTER PACK 3 TAB BTL PO STA (23:29)
[2024-05-25] MEDS: HYDROmorphone 1 MG/ML 1 ML SYRINGE IM STA (23:30)
== END 2024-05-25 23:38 | disposition home or self-care (01) ==
LOC: EC 16:37
DX: G89.29 Other chronic pain (principal); R10.84 Generalized abdominal pain; F17.290 Nicotine dependence, other tobacco product, uncomplicated; Z88.1 Allergy status to other antibiotic agents
CPT/HCPCS: 99283; 96372; J1171

== ENCOUNTER 2024-05-26 22:54 | Emergency (ER) | payer MEDICARE ==
--- NOTE | 2024-05-26 23:15 | ED ---
Recheck HPI - General Chief Complaint: Recheck/Abnormal Lab/Rx Stated Complaint: flu symptoms Time Seen by Provider: 05/26/24 23:06 Source: patient, EMS, RN notes reviewed, old records reviewed Mode of arrival: EMS Limitations: no limitations - History of Present Illness Initial Comments: This is a 53-year-old female who presents to the emergency room today for evaluation, patient states weakness does not feel right feels unwell, patient has daily visits to the emergency department this week with no change in outlook or circumstance despite discharge planning MD Complaint: other -: days(s) Returns Today for: persistent/worsening pain related to initial visit Symptoms Since Prior Visit: improved Context: planned re-check Associated Symptoms: none Treatments Prior to Arrival: Given Pain Meds on, other - Related Data Home Medications Medication Instructions Recorded Confirmed Atorvastatin [Lipitor] 80 mg PO HS 06/25/19 04/26/24 lisinopriL 40 mg PO DAILY 09/24/20 04/26/24 traZODone HCL 50 mg PO HS 01/11/21 04/26/24 Albuterol Inhaler [Ventolin Hfa 2 puff INHALATION RT-QID PRN 03/01/23 04/26/24 Inhaler] Insulin Glargine,Hum.rec.anlog 30 units SQ HS 07/30/23 04/26/24 [Lantus Solostar Pen] Ezetimibe [Zetia] 10 mg PO HS 02/17/24 04/26/24 Insulin Aspart (Niacinamide) 20 units SQ BID 02/17/24 04/26/24 [Fiasp 100 Unit/ml Flextouch Pen] Nystatin 100,000 Unit/gm Powd 1 applic TOPICAL BID PRN 02/17/24 04/26/24 [Mycostatin Powder] Pantoprazole [Protonix] 40 mg PO DAILY 02/17/24 04/26/24 Tirzepatide [Mounjaro] 2.5 mg SQ FR 04/26/24 04/26/24 Previous Rx's Medication Instructions Recorded amLODIPine [Norvasc] 10 mg PO DAILY #30 tab 03/11/23 hydrALAZINE HCL [Apresoline] 25 mg PO BID #60 tab 03/11/23 Ondansetron Odt [Zofran ODT] 4 mg PO Q8HR PRN #10 tab 03/29/24 Ibuprofen [Motrin] 600 mg PO Q8HR PRN 30 Days #30 tab 04/11/24 Famotidine [Pepcid] 20 mg PO DAILY #20 tablet 04/18/24 Albuterol Inhaler [Ventolin Hfa 1 - 2 puff INHALATION Q6H PRN #1 04/30/24 Inhaler] each Azithromycin [Zithromax] 250 mg PO DAILY 4 Days #4 tab 04/30/24 Doxycycline Hyclate 100 mg PO BID #14 tab 05/14/24 Allergies Allergy/AdvReac Type Severity Reaction Status Date / Time levofloxacin [From Levaquin] Allergy Rash/Hives Verified 05/29/24 12:38 Review of Systems ROS Statement: Those systems with pertinent positive or pertinent negative responses have been documented in the HPI. ROS Other: All systems not noted in ROS Statement are negative. Past Medical History Past Medical History: Diabetes Mellitus, GERD/Reflux, Hyperlipidemia, Hypertension, Syncope Additional Past Medical History / Comment(s): Pt recently admitted to [facility] on 07/21/21 with uncontrolled IDDM and hyperkalemia. Other hx: Recurrent pancreatitis, hypertriglyceridemia, elevated lipase, IDDM type II, UTI, chronic low back pain, bulging discs, dental abscesses in past. History of Any Multi-Drug Resistant Organisms: MRSA Date of last positivie culture/infection: 03/01/23 MDRO Source:: Abdomen Past Surgical History: Tubal Ligation Additional Past Surgical History / Comment(s): Age 7 had VSD repair, tumor removal 03/2023 Past Anesthesia/Blood Transfusion Reactions: No Reported Reaction Past Psychological History: No Psychological Hx Reported Smoking Status: Former smoker, Second hand smoke exposure, Vaper Past Alcohol Use History: None Reported Past Drug Use History: None Reported - Past Family History Mother Family Medical History: No Reported History Additional Family Medical History / Comment(s): Mother was healthy. She is , pt cannot recall cause of . Father Family Medical History: Pneumonia Additional Family Medical History / Comment(s): Father at the age of 67yrs from pneumonia General Exam Limitations: no limitations General appearance: alert, in no apparent distress Head exam: Present: atraumatic, normocephalic, normal inspection Eye exam: Present: normal appearance, PERRL, EOMI. Absent: scleral icterus, conjunctival injection, periorbital swelling ENT exam: Present: normal exam, mucous membranes moist Neck exam: Present: normal inspection. Absent: tenderness, meningismus, lymphadenopathy Respiratory exam: Present: normal lung sounds bilaterally. Absent: respiratory distress, wheezes, rales, rhonchi, stridor Cardiovascular Exam: Present: regular rate, normal rhythm, normal heart sounds. Absent: systolic murmur, diastolic murmur, rubs, gallop, clicks GI/Abdominal exam: Present: soft, normal bowel sounds. Absent: distended, tenderness, guarding, rebound, rigid Extremities exam: Present: normal inspection, full ROM, normal capillary refill. Absent: tenderness, pedal edema, joint swelling, calf tenderness Back exam: Present: normal inspection Neurological exam: Present: alert, oriented X3, CN II-XII intact Psychiatric exam: Present: normal affect, normal mood Skin exam: Present: warm, dry, intact, normal color. Absent: rash Course Vital Signs 05/26/24 05/27/24 05/27/24 22:56 02:03 04:55 Temperature 97.7 F 98.8 F 98.2 F Pulse Rate 72 75 71 Respiratory 16 18 18 Rate Blood Pressure 159/87 162/88 154/85 O2 Sat by Pulse 95 98 97 Oximetry - Reevaluation(s) Reevaluation #1: 05/27/24 00:46 Medical record is reviewed Reevaluation #2: 05/27/24 00:46 Patient has no change in symptoms here in the ER 05/27/24 03:26 Blood pressure and symptoms improved here in the ER Reevaluation #3: 05/27/24 00:46 Patient informed of results questions answered Reevaluation #4: Was pt. sent in by a medical professional or institution (, PA, JUNIOR SYSTEMS ENGINEER, urgent care, hospital, or penitentiary...) When possible be specific @ -no Did you speak to anyone other than the patient for history (EMS, parent, family, police, friend...)? What history was obtained from this source @ -no Did you review nursing and triage notes (agree or disagree)? Why? @ -agree Are old charts reviewed (outside hosp., previous admission, EMS record, old EKG, old radiological studies, urgent care reports/EKG's, penitentiary records)? Report findings @ -yes Differential Diagnosis (chest pain, altered mental status, abdominal pain women, abdominal pain men, vaginal bleeding, weakness, fever, dyspnea, syncope, headache, dizziness, GI bleed, back pain, seizure, CVA, palpatations, mental health, musculoskeletal)? @ -prior EKG interpreted by me (3pts min.). @ -no X-rays interpreted by me (1pt min.). @ -no CT interpreted by me (1pt min.). @ -no U/S interpreted by me (1pt. min.). @ -no What testing was considered but not performed or refused? (CT, X-rays, U/S, labs)? Why? @ -none What meds were considered but not given or refused? Why? @ -none Did you discuss the management of the patient with other professionals (professionals i.e. , PA, JUNIOR SYSTEMS ENGINEER, lab, RT, psych nurse, social group worker, senior procurement specialist, teacher, promotions officer, case fitter)? Give summary @ -no Was smoking cessation discussed for >3mins.? @ -no Was critical care preformed (if so, how long)? @ -no Were there social determinants of health that impacted care today? How? (Homelessness, low income, unemployed, alcoholism, drug addiction, transportation, low edu. Level, literacy, decrease access to med. care, detention, rehab)? @ -none Was there de-escalation of care discussed even if they declined (Discuss DNR or withdrawal of care, Hospice)? DNR status @ -no What co-morbidities impacted this encounter? (DM, HTN, Smoking, COPD, CAD, Cancer, CVA, ARF, Chemo, Hep., AIDS, mental health diagnosis, sleep apnea, morbid obesity)? @ -none Was patient admitted / discharged? Hospital course, mention meds given and route, prescriptions, significant lab abnormalities, going to OR and other pertinent info. @ -53 female well-known to this ER for chronic pain. Lab testing is normal p atient has hyperglycemia resolved patient can be discharged home Discharged Undiagnosed new problem with uncertain prognosis? @ -no Drug Therapy requiring intensive monitoring for toxicity (Heparin, Nitro, Insulin, Cardizem)? @ -no Were any procedures done? @ -no Diagnosis/symptom? @ - Acute, or Chronic, or Acute on Chronic? @ -Acute Uncomplicated (without systemic symptoms) or Complicated (systemic symptoms)? @ -Complicated Side effects of treatment? @ -no Exacerbation, Progression, or Severe Exacerbation? @ -exacerbation Poses a threat to life or bodily function? How? (Chest pain, USA, MO, pneumonia, PE, COPD, DKA, ARF, appy, cholecystitis, CVA, Diverticulitis, Homicidal, Suicidal, threat to staff... and all critical care pts) @ -no Reevaluation #5: Differential Weakness: Hypoglycemia, shock, sepsis, hyponatremia, anemia, infection, MO, ETOH, adverse medicine reaction, overdose, stroke, this is not meant to be an all-inclusive list. Medical Decision Making - Medical Decision Making 53 female who is well-known to this emergency department. Patient is presenting for evaluation of weakness chronic pain multiple ER visits daily this week patient will be a discharged home as patient has no significant medical abnormality - Lab Data Result diagrams: 05/26/24 23:35 05/26/24 23:35 Lab Results 05/26/24 05/26/24 05/26/24 Range/Units 23:35 23:35 23:35 WBC 14.3 H (3.8-10.6) k/uL RBC 4.86 (3.80-5.40) m/uL Hgb 12.9 (11.4-16.0) gm/dL Hct 40.3 (34.0-46.0) % MCV 82.9 (80.0-100.0) fL MCH 26.5 (25.0-35.0) pg MCHC 32.0 (31.0-37.0) g/dL RDW 16.5 H (11.5-15.5) % Plt Count 473 H (150-450) k/uL MPV 7.7 Neutrophils % 79 % Lymphocytes % 14 % Monocytes % 3 % Eosinophils % 3 % Basophils % 0 % Neutrophils # 11.3 H (1.3-7.7) k/uL Lymphocytes # 2.0 (1.0-4.8) k/uL Monocytes # 0.5 (0-1.0) k/uL Eosinophils # 0.4 (0-0.7) k/uL Basophils # 0.0 (0-0.2) k/uL Anisocytosis Slight Sodium 133 L (137-145) mmol/L Potassium 4.3 (3.5-5.1) mmol/L Chloride 95 L (98-107) mmol/L Carbon Dioxide 22 (22-30) mmol/L Anion Gap 16 mmol/L BUN 15 (7-17) mg/dL Creatinine 0.82 (0.52-1.04) mg/dL Est GFR (CKD-EPI)AfAm >90 (>60 ml/min/1.73 sqM) Est GFR (CKD-EPI)NonAf 83 (>60 ml/min/1.73 sqM) Glucose 541 H* (74-99) mg/dL POC Glucose (mg/dL) (70-110) mg/dL POC Glu Wireless Sales Manager ID Calcium 9.2 (8.4-10.2) mg/dL Phosphorus 4.6 H (2.5-4.5) mg/dL Magnesium 1.4 L (1.6-2.3) mg/dL Total Bilirubin 0.4 (0.2-1.3) mg/dL AST 22 (14-36) U/L ALT 23 (4-34) U/L Alkaline Phosphatase 155 H (38-126) U/L Troponin I (0.000-0.034) ng/mL Total Protein 7.1 (6.3-8.2) g/dL Albumin 4.1 (3.5-5.0) g/dL TSH 1.090 (0.465-4.680) mIU/L Urine Color Colorless Urine Appearance Clear (Clear) Urine pH 5.5 (5.0-8.0) Ur Specific Broughton 1.022 (1.001-1.035) Urine Protein 1+ H (Negative) Urine Glucose (UA) 4+ H (Negative) Urine Ketones Negative (Negative) Urine Blood Negative (Negative) Urine Nitrite Negative (Negative) Urine Bilirubin Negative (Negative) Urine Urobilinogen <2.0 (<2.0) mg/dL Ur Leukocyte Esterase Negative (Negative) Urine WBC 1 (0-5) /hpf Ur Squamous Epith Cells 1 (0-4) /hpf Urine Mucus Rare H (None) /hpf Salicylates <1.0 mg/dL Urine Opiates Screen Not Detected (NotDetected) Ur Oxycodone Screen Not Detected (NotDetected) Urine Methadone Screen Not Detected (NotDetected) Acetaminophen <10.0 ug/mL Ur Barbiturates Screen Not Detected (NotDetected) U Tricyclic Antidepress Not Detected (NotDetected) Ur Phencyclidine Scrn Not Detected (NotDetected) Ur Amphetamines Screen Not Detected (NotDetected) U Methamphetamines Scrn Not Detected (NotDetected) U Benzodiazepines Scrn Not Detected (NotDetected) Urine Cocaine Screen Not Detected (NotDetected) U Marijuana (THC) Screen Not Detected (NotDetected) Serum Alcohol <10 mg/dL Acetone, Qual (Negative) 05/26/24 05/27/24 05/27/24 Range/Units 23:35 02:21 02:32 WBC (3.8-10.6) k/uL RBC (3.80-5.40) m/uL Hgb (11.4-16.0) gm/dL Hct (34.0-46.0) % MCV (80.0-100.0) fL MCH (25.0-35.0) pg MCHC (31.0-37.0) g/dL RDW (11.5-15.5) % Plt Count (150-450) k/uL MPV Neutrophils % % Lymphocytes % % Monocytes % % Eosinophils % % Basophils % % Neutrophils # (1.3-7.7) k/uL Lymphocytes # (1.0-4.8) k/uL Monocytes # (0-1.0) k/uL Eosinophils # (0-0.7) k/uL Basophils # (0-0.2) k/uL Anisocytosis Sodium (137-145) mmol/L Potassium (3.5-5.1) mmol/L Chloride (98-107) mmol/L Carbon Dioxide (22-30) mmol/L Anion Gap mmol/L BUN (7-17) mg/dL Creatinine (0.52-1.04) mg/dL Est GFR (CKD-EPI)AfAm (>60 ml/min/1.73 sqM) Est GFR (CKD-EPI)NonAf (>60 ml/min/1.73 sqM) Glucose (74-99) mg/dL POC Glucose (mg/dL) 447 H (70-110) mg/dL POC Glu Wireless Sales Manager ID SELIMOVIC JOSAFAT Calcium (8.4-10.2) mg/dL Phosphorus (2.5-4.5) mg/dL Magnesium (1.6-2.3) mg/dL Total Bilirubin (0.2-1.3) mg/dL AST (14-36) U/L ALT (4-34) U/L Alkaline Phosphatase (38-126) U/L Troponin I <0.012 (0.000-0.034) ng/mL Total Protein (6.3-8.2) g/dL Albumin (3.5-5.0) g/dL TSH (0.465-4.680) mIU/L Urine Color Urine Appearance (Clear) Urine pH (5.0-8.0) Ur Specific Broughton (1.001-1.035) Urine Protein (Negative) Urine Glucose (UA) (Negative) Urine Ketones (Negative) Urine Blood (Negative) Urine Nitrite (Negative) Urine Bilirubin (Negative) Urine Urobilinogen (<2.0) mg/dL Ur Leukocyte Esterase (Negative) Urine WBC (0-5) /hpf Ur Squamous Epith Cells (0-4) /hpf Urine Mucus (None) /hpf Salicylates mg/dL Urine Opiates Screen (NotDetected) Ur Oxycodone Screen (NotDetected) Urine Methadone Screen (NotDetected) Acetaminophen ug/mL Ur Barbiturates Screen (NotDetected) U Tricyclic Antidepress (NotDetected) Ur Phencyclidine Scrn (NotDetected) Ur Amphetamines Screen (NotDetected) U Methamphetamines Scrn (NotDetected) U Benzodiazepines Scrn (NotDetected) Urine Cocaine Screen (NotDetected) U Marijuana (THC) Screen (NotDetected) Serum Alcohol mg/dL Acetone, Qual Negative (Negative) - EKG Data -: EKG Interpreted by Me (EKG is sinus 70 [place] 153 QRS 90 QTc 422) Disposition Clinical Impression: Weakness, Debility, Hyperglycemia due to diabetes mellitus Disposition: HOME SELF-CARE Condition: Fair Instructions (If sedation given, give patient instructions): Diabetic Hyperglycemia (ED) Is patient prescribed a controlled substance at d/c from ED?: No Referrals: None,Stated [Primary Care Provider] - 1-2 days Time of Disposition: 01:00
[2024-05-27] MEDS: SODIUM CHLORIDE 0.9% 1,000 ML IV STA ×2 (00:40→03:00)
[2024-05-27] MEDS: ONDANSETRON 4 MG/2 ML VIAL IVP STA (00:44)
[2024-05-27 00:46] LABS: Anisocytosis Slight; Basophils % (A) 0 %; Eosinophils # (A) 0.4 k/uL (0-0.7); Eosinophils % (A) 3 %; HCT 40.3 % (34.0-46.0); HGB 12.9 gm/dL (11.4-16.0); Lymphocytes % (A) 14 %; MCH 26.5 pg (25.0-35.0); MCV 82.9 fL (80.0-100.0); Mean Platelet Volume 7.7; Monocytes # (A) 0.5 k/uL (0-1.0); Monocytes % (A) 3 %; Neutrophils # (A) 11.3 k/uL (1.3-7.7); Neutrophils % (A) 79 %; Platelet Count 473 k/uL (150-450); RBC 4.86 m/uL (3.80-5.40); RDW 16.5 % (11.5-15.5); WBC 14.3 k/uL (3.8-10.6)
[2024-05-27 00:49] LABS: Appearance,Urine Clear (Clear); Bilirubin,Urine Negative (Negative); Blood,Urine Negative (Negative); Color,Urine Colorless; Glucose,Urine (UA) 4+ (Negative); Ketones,Urine Negative (Negative); Leukocyte Esterase,Urine Negative (Negative); Mucus,Urine Rare /hpf; Nitrite,Urine Negative (Negative); PH, Urine 5.5 (5.0-8.0); Protein,Urine 1+ (Negative); Specific Gravity,Urine 1.022 (1.001-1.035); Squamous Epithelial Cell,Urine 1 /hpf (0-4); Urobilinogen,Urine <2.0 mg/dL (<2.0); WBC,Urine 1 /hpf (0-5)
[2024-05-27 01:04] LABS: ALT 23 U/L (4-34); AST 22 U/L (14-36); Acetaminophen <10.0 ug/mL; African American GFR (CKD) >90 (>60 ml/min/1.73 sqM); Albumin 4.1 g/dL (3.5-5.0); Alcohol <10 mg/dL; Alkaline Phosphatase 155 U/L (38-126); Anion Gap 16 mmol/L; Blood Urea Nitrogen 15 mg/dL (7-17); Calcium 9.2 mg/dL (8.4-10.2); Carbon Dioxide 22 mmol/L (22-30); Chloride 95 mmol/L (98-107); Magnesium 1.4 mg/dL (1.6-2.3); Non-African American GFR(CKD) 83 (>60 ml/min/1.73 sqM); Phosphorus 4.6 mg/dL (2.5-4.5); Potassium 4.3 mmol/L (3.5-5.1); Salicylate <1.0 mg/dL; Sodium 133 mmol/L (137-145); Total Bilirubin 0.4 mg/dL (0.2-1.3); Total Protein 7.1 g/dL (6.3-8.2)
[2024-05-27 01:10] LABS: Amphetamine Screen,Urine Not Detected (NotDetected); Barbiturate Screen,Urine Not Detected (NotDetected); Benzodiazepines Screen,Urine Not Detected (NotDetected); Cocaine Screen,Urine Not Detected (NotDetected); Methadone Screen, Urine Not Detected (NotDetected); Opiate Screen,Urine Not Detected (NotDetected); Oxycodone Screen, Urine Not Detected (NotDetected); Phencyclidine Screen,Urine Not Detected (NotDetected); Tricyclic Antidepressant,Urine Not Detected (NotDetected); Urn Cannabinoid Scrn Not Detected (NotDetected)
[2024-05-27 01:19] LABS: Glucose 541 mg/dL (74-99)
[2024-05-27 02:06] VITALS: RESP 18
[2024-05-27] MEDS: MORPHINE SULFATE 4 MG/ML SYRINGE IV STA (02:08)
[2024-05-27] MEDS: MAGNESIUM OXIDE 400 MG TAB PO STA (02:15)
[2024-05-27] MEDS: MAGNESIUM SULFATE-D5W PMX 1 GM in DEXTROSE/WATER 1 100ML.BAG IVPB ONE (02:15)
[2024-05-27] MEDS: INSULIN REGULAR 100 UNIT/ML VIAL (IM/SQ) SQ ONE (02:32)
[2024-05-27] MEDS: INSULIN REGULAR 100 UNIT/ML VIAL (IV) IV ONE (02:33)
[2024-05-27 02:41] LABS: Glucose,Whole Blood 447 mg/dL (70-110)
[2024-05-27] MEDS: MAGNESIUM OXIDE 400 MG TAB PO SCH (04:55)
[2024-05-27 05:06] VITALS: BP 154/85; PULSE 71; TEMP 98.2
== END 2024-05-27 05:17 | disposition home or self-care (01) ==
LOC: EC 22:54
DX: R53.1 Weakness (principal); R53.81 Other malaise; E11.65 Type 2 diabetes mellitus with hyperglycemia; Z79.4 Long term (current) use of insulin; F17.290 Nicotine dependence, other tobacco product, uncomplicated; Z88.1 Allergy status to other antibiotic agents
CPT/HCPCS: 99284; 96365; 96375; 96361; 36415 ×2; 93005; 80053; 82009; 83735; 84100; 84443; 84484; 85025; 81001; 80306; 80143; 80179; G0480; J2270; J2405; J3475; 80320

== ENCOUNTER 2024-05-29 12:33 | Emergency (ER) | payer MEDICARE ==
[2024-05-29 12:42] VITALS: RESP 18
[2024-05-29 13:47] LABS: Anisocytosis Slight; Basophils % (A) 0 %; Eosinophils # (A) 0.3 k/uL (0-0.7); Eosinophils % (A) 4 %; HCT 37.7 % (34.0-46.0); HGB 12.2 gm/dL (11.4-16.0); Hypochromasia Slight; Lymphocytes % (A) 28 %; MCH 26.9 pg (25.0-35.0); MCHC 32.4 g/dL (31.0-37.0); MCV 82.9 fL (80.0-100.0); Mean Platelet Volume 7.3; Monocytes # (A) 0.3 k/uL (0-1.0); Monocytes % (A) 5 %; Neutrophils # (A) 4.4 k/uL (1.3-7.7); Neutrophils % (A) 61 %; Platelet Count 464 k/uL (150-450); RBC 4.54 m/uL (3.80-5.40); RDW 16.4 % (11.5-15.5); WBC 7.2 k/uL (3.8-10.6)
[2024-05-29 14:00] LABS: ALT 17 U/L (4-34); AST 21 U/L (14-36); African American GFR (CKD) >90 (>60 ml/min/1.73 sqM); Albumin 3.4 g/dL (3.5-5.0); Alkaline Phosphatase 139 U/L (38-126); Anion Gap 10 mmol/L; Blood Urea Nitrogen 13 mg/dL (7-17); Calcium 8.5 mg/dL (8.4-10.2); Carbon Dioxide 25 mmol/L (22-30); Chloride 99 mmol/L (98-107); Glucose 320 mg/dL (74-99); Non-African American GFR(CKD) >90 (>60 ml/min/1.73 sqM); Potassium 4.2 mmol/L (3.5-5.1); Sodium 134 mmol/L (137-145); Total Bilirubin 0.4 mg/dL (0.2-1.3); Total Protein 6.1 g/dL (6.3-8.2)
[2024-05-29 14:04] LABS: Appearance,Urine Clear (Clear); Bilirubin,Urine Negative (Negative); Blood,Urine Negative (Negative); Color,Urine Colorless; Glucose,Urine (UA) 3+ (Negative); Ketones,Urine Negative (Negative); Leukocyte Esterase,Urine Negative (Negative); Mucus,Urine Rare /hpf; Nitrite,Urine Negative (Negative); PH, Urine 6.5 (5.0-8.0); Protein,Urine 2+ (Negative); RBC,Urine <1 /hpf (0-5); Specific Gravity,Urine 1.014 (1.001-1.035); Squamous Epithelial Cell,Urine 4 /hpf (0-4); Urobilinogen,Urine <2.0 mg/dL (<2.0); WBC,Urine 1 /hpf (0-5)
[2024-05-29] MEDS: INSULIN REGULAR 100 UNIT/ML VIAL (IM/SQ) SQ ONE (14:51)
[2024-05-29] MEDS: KETOROLAC 15 MG/ML 1 ML VIAL IVP STA (14:51)
[2024-05-29] MEDS: ONDANSETRON 4 MG/2 ML VIAL IVP STA (14:52)
--- NOTE | 2024-05-29 15:05 | ED ---
General Adult HPI - General Chief complaint: Recheck/Abnormal Lab/Rx Stated complaint: pain Time Seen by Provider: 05/29/24 12:35 Source: patient, EMS Mode of arrival: EMS Limitations: no limitations - History of Present Illness Initial comments: 53-year-old female well-known to the emergency department presents today with generalized not feeling well. Patient is known to be a noncompliant diabetic. Patient reports that she has had generalized bodyaches, nausea, vomiting. Patient does admit that she has been taking her insulin. She admits to incr eased frequency of urination. No diarrhea. No black or bloody stools. No fevers. No other alleviating, precipitating or modifying factors - Related Data Home Medications Medication Instructions Recorded Confirmed Atorvastatin [Lipitor] 80 mg PO HS 06/25/19 04/26/24 lisinopriL 40 mg PO DAILY 09/24/20 04/26/24 traZODone HCL 50 mg PO HS 01/11/21 04/26/24 Albuterol Inhaler [Ventolin Hfa 2 puff INHALATION RT-QID PRN 03/01/23 04/26/24 Inhaler] Insulin Glargine,Hum.rec.anlog 30 units SQ HS 07/30/23 04/26/24 [Lantus Solostar Pen] Ezetimibe [Zetia] 10 mg PO HS 02/17/24 04/26/24 Insulin Aspart (Niacinamide) 20 units SQ BID 02/17/24 04/26/24 [Fiasp 100 Unit/ml Flextouch Pen] Nystatin 100,000 Unit/gm Powd 1 applic TOPICAL BID PRN 02/17/24 04/26/24 [Mycostatin Powder] Pantoprazole [Protonix] 40 mg PO DAILY 02/17/24 04/26/24 Tirzepatide [Mounjaro] 2.5 mg SQ FR 04/26/24 04/26/24 Previous Rx's Medication Instructions Recorded amLODIPine [Norvasc] 10 mg PO DAILY #30 tab 03/11/23 hydrALAZINE HCL [Apresoline] 25 mg PO BID #60 tab 03/11/23 Ondansetron Odt [Zofran ODT] 4 mg PO Q8HR PRN #10 tab 03/29/24 Ibuprofen [Motrin] 600 mg PO Q8HR PRN 30 Days #30 tab 04/11/24 Famotidine [Pepcid] 20 mg PO DAILY #20 tablet 04/18/24 Albuterol Inhaler [Ventolin Hfa 1 - 2 puff INHALATION Q6H PRN #1 04/30/24 Inhaler] each Azithromycin [Zithromax] 250 mg PO DAILY 4 Days #4 tab 04/30/24 Doxycycline Hyclate 100 mg PO BID #14 tab 05/14/24 Allergies Allergy/AdvReac Type Severity Reaction Status Date / Time levofloxacin [From Levaquin] Allergy Rash/Hives Verified 06/02/24 15:56 Review of Systems ROS Statement: Those systems with pertinent positive or pertinent negative responses have been documented in the HPI. ROS Other: All systems not noted in ROS Statement are negative. Past Medical History Past Medical History: Diabetes Mellitus, GERD/Reflux, Hyperlipidemia, Hypertension, Syncope Additional Past Medical History / Comment(s): Pt recently admitted to [facility] on 07/21/21 with uncontrolled IDDM and hyperkalemia. Other hx: Recurrent pancreatitis, hypertriglyceridemia, elevated lipase, IDDM type II, UTI, chronic low back pain, bulging discs, dental abscesses in past. History of Any Multi-Drug Resistant Organisms: MRSA Date of last positivie culture/infection: 03/01/23 MDRO Source:: Abdomen Past Surgical History: Tubal Ligation Additional Past Surgical History / Comment(s): Age 7 had VSD repair, tumor removal 03/2023 Past Anesthesia/Blood Transfusion Reactions: No Reported Reaction Past Psychological History: No Psychological Hx Reported Smoking Status: Former smoker, Second hand smoke exposure, Vaper Past Alcohol Use History: None Reported Past Drug Use History: None Reported - Past Family History Mother Family Medical History: No Reported History Additional Family Medical History / Comment(s): Mother was healthy. She is , pt cannot recall cause of . Father Family Medical History: Pneumonia Additional Family Medical History / Comment(s): Father at the age of 67yrs from pneumonia General Exam Limitations: no limitations General appearance: alert, in no apparent distress Head exam: Present: atraumatic, normocephalic, normal inspection Eye exam: Present: normal appearance, PERRL, EOMI. Absent: scleral icterus, conjunctival injection, periorbital swelling ENT exam: Present: normal exam, mucous membranes moist Neck exam: Present: normal inspection. Absent: tenderness, meningismus, lymphadenopathy Respiratory exam: Present: normal lung sounds bilaterally. Absent: respiratory distress, wheezes, rales, rhonchi, stridor Cardiovascular Exam: Present: regular rate, normal rhythm, normal heart sounds. Absent: systolic murmur, diastolic murmur, rubs, gallop, clicks GI/Abdominal exam: Present: soft, normal bowel sounds. Absent: distended, tend erness, guarding, rebound, rigid Extremities exam: Present: normal inspection, full ROM, normal capillary refill. Absent: tenderness, pedal edema, joint swelling, calf tenderness Back exam: Present: normal inspection Neurological exam: Present: alert, oriented X3, CN II-XII intact Psychiatric exam: Present: normal affect, normal mood Skin exam: Present: warm, dry, intact, normal color. Absent: rash Course Vital Signs 05/29/24 05/29/24 12:34 15:12 Temperature 98.9 F 98 F Pulse Rate 57 L 84 Respiratory 18 18 Rate Blood Pressure 186/81 150/88 O2 Sat by Pulse 97 99 Oximetry Medical Decision Making - Medical Decision Making Was pt. sent in by a medical professional or institution (, PA, [employer], urgent care, hospital, or prison...) When possible be specific @ -No Did you speak to anyone other than the patient for history (EMS, parent, family, police, friend...)? What history was obtained from this source @ -Spoke with EMS for history Did you review nursing and triage notes (agree or disagree)? Why? @ -I reviewed and agree with nursing and triage notes Were old charts reviewed (outside hosp., previous admission, EMS record, old E KG, old radiological studies, urgent care reports/EKG's, prison records)? Report findings @ -No old charts were reviewed Differential Diagnosis (chest pain, altered mental status, abdominal pain women, abdominal pain men, vaginal bleeding, weakness, fever, dyspnea, syncope, headache, dizziness, GI bleed, back pain, seizure, CVA, palpatations, mental health, musculoskeletal)? @ -Differential Weakness: Hypoglycemia, shock, sepsis, hyponatremia, anemia, infection, ME, ETOH, adverse medicine reaction, overdose, stroke, this is not meant to be an all-inclusive list. EKG interpreted by me (3pts min.). @ -Not done X-rays interpreted by me (1pt min.). @ -None done CT interpreted by me (1pt min.). @ -None done U/S interpreted by me (1pt. min.). @ -None done What testing was considered but not performed or refused? (CT, X-rays, U/S, labs)? Why? @ -None What meds were considered but not given or refused? Why? @ -None Did you discuss the management of the patient with other professionals (professionals i.e. , PA, [employer], lab, RT, psych nurse, geriatric social worker, file system installer, teacher, maritime officer, top case assembler)? Give summary @ -No Was smoking cessation discussed for >3mins.? @ -No Was critical care preformed (if so, how long)? @ -No Were there social determinants of health that impacted care today? How? (Homelessness, low income, unemployed, alcoholism, drug addiction, transport ation, low edu. Level, literacy, decrease access to med. care, group home, rehab)? @ -Low literacy Was there de-escalation of care discussed even if they declined (Discuss DNR or withdrawal of care, Hospice)? DNR status @ -No What co-morbidities impacted this encounter? (DM, HTN, Smoking, COPD, CAD, Can cer, CVA, ARF, Chemo, Hep., AIDS, mental health diagnosis, sleep apnea, morbid obesity)? @ -Type 2 diabetes Was patient admitted / discharged? Hospital course, mention meds given and route, prescriptions, significant lab abnormalities, going to OR and other pertinent info. @ -Upon arrival patient seen and evaluated in [place] [id number]. Thorough history and physical exam was performed. IV access was established. Laboratory studies are conducted. Patient was given IV fluids. Results are discussed with patient. Did recommend continued compliance with her insulin. Follow-up with her primary care doctor in 2 to 4 days and return for any new or worsening symptoms Undiagnosed new problem with uncertain prognosis? @ -No Drug Therapy requiring intensive monitoring for toxicity (Heparin, Nitro, Insulin, Cardizem)? @ -No Were any procedures done? @ -No Diagnosis/symptom? @ -Acute myalgias, hyperglycemia Acute, or Chronic, or Acute on Chronic? @ -Acute on chronic Uncomplicated (without systemic symptoms) or Complicated (systemic symptoms)? @ -Complicated Side effects of treatment? @ -No Exacerbation, Progression, or Severe Exacerbation? @ -No Poses a threat to life or bodily function? How? (Chest pain, USA, [place], pneumonia, PE, COPD, DKA, ARF, appy, cholecystitis, CVA, Diverticulitis, Homicidal, Suicidal, threat to staff... and all critical care pts) @ -No - Lab Data Result diagrams: 05/29/24 13:03 05/29/24 13:03 Lab Results 05/29/24 05/29/24 05/29/24 Range/Units 13:03 13:03 13:03 WBC 7.2 (3.8-10.6) k/uL RBC 4.54 (3.80-5.40) m/uL Hgb 12.2 (11.4-16.0) gm/dL Hct 37.7 (34.0-46.0) % MCV 82.9 (80.0-100.0) fL MCH 26.9 (25.0-35.0) pg MCHC 32.4 (31.0-37.0) g/dL RDW 16.4 H (11.5-15.5) % Plt Count 464 H (150-450) k/uL MPV 7.3 Neutrophils % 61 % Lymphocytes % 28 % Monocytes % 5 % Eosinophils % 4 % Basophils % 0 % Neutrophils # 4.4 (1.3-7.7) k/uL Lymphocytes # 2.0 (1.0-4.8) k/uL Monocytes # 0.3 (0-1.0) k/uL Eosinophils # 0.3 (0-0.7) k/uL Basophils # 0.0 (0-0.2) k/uL Hypochromasia Slight Anisocytosis Slight Sodium 134 L (137-145) mmol/L Potassium 4.2 (3.5-5.1) mmol/L Chloride 99 (98-107) mmol/L Carbon Dioxide 25 (22-30) mmol/L Anion Gap 10 mmol/L BUN 13 (7-17) mg/dL Creatinine 0.76 (0.52-1.04) mg/dL Est GFR (CKD-EPI)AfAm >90 (>60 ml/min/1.73 sqM) Est GFR (CKD-EPI)NonAf >90 (>60 ml/min/1.73 sqM) Glucose 320 H (74-99) mg/dL Calcium 8.5 (8.4-10.2) mg/dL Total Bilirubin 0.4 (0.2-1.3) mg/dL AST 21 (14-36) U/L ALT 17 (4-34) U/L Alkaline Phosphatase 139 H (38-126) U/L Total Protein 6.1 L (6.3-8.2) g/dL Albumin 3.4 L (3.5-5.0) g/dL Urine Color Urine Appearance (Clear) Urine pH (5.0-8.0) Ur Specific [place] (1.001-1.035) Urine Protein (Negative) Urine Glucose (UA) (Negative) Urine Ketones (Negative) Urine Blood (Negative) Urine Nitrite (Negative) Urine Bilirubin (Negative) Urine Urobilinogen (<2.0) mg/dL Ur Leukocyte Esterase (Negative) Urine RBC (0-5) /hpf Urine WBC (0-5) /hpf Ur Squamous Epith Cells (0-4) /hpf Urine Mucus (None) /hpf SARS-CoV-2 (PCR) Not Detected (Not Detectd) 05/29/24 Range/Units 13:28 WBC (3.8-10.6) k/uL RBC (3.80-5.40) m/uL Hgb (11.4-16.0) gm/dL Hct (34.0-46.0) % MCV (80.0-100.0) fL MCH (25.0-35.0) pg MCHC (31.0-37.0) g/dL RDW (11.5-15.5) % Plt Count (150-450) k/uL MPV Neutrophils % % Lymphocytes % % Monocytes % % Eosinophils % % Basophils % % Neutrophils # (1.3-7.7) k/uL Lymphocytes # (1.0-4.8) k/uL Monocytes # (0-1.0) k/uL Eosinophils # (0-0.7) k/uL Basophils # (0-0.2) k/uL Hypochromasia Anisocytosis Sodium (137-145) mmol/L Potassium (3.5-5.1) mmol/L Chloride (98-107) mmol/L Carbon Dioxide (22-30) mmol/L Anion Gap mmol/L BUN (7-17) mg/dL Creatinine (0.52-1.04) mg/dL Est GFR (CKD-EPI)AfAm (>60 ml/min/1.73 sqM) Est GFR (CKD-EPI)NonAf (>60 ml/min/1.73 sqM) Glucose (74-99) mg/dL Calcium (8.4-10.2) mg/dL Total Bilirubin (0.2-1.3) mg/dL AST (14-36) U/L ALT (4-34) U/L Alkaline Phosphatase (38-126) U/L Total Protein (6.3-8.2) g/dL Albumin (3.5-5.0) g/dL Urine Color Colorless Urine Appearance Clear (Clear) Urine pH 6.5 (5.0-8.0) Ur Specific [place] 1.014 (1.001-1.035) Urine Protein 2+ H (Negative) Urine Glucose (UA) 3+ H (Negative) Urine Ketones Negative (Negative) Urine Blood Negative (Negative) Urine Nitrite Negative (Negative) Urine Bilirubin Negative (Negative) Urine Urobilinogen <2.0 (<2.0) mg/dL Ur Leukocyte Esterase Negative (Negative) Urine RBC <1 (0-5) /hpf Urine WBC 1 (0-5) /hpf Ur Squamous Epith Cells 4 (0-4) /hpf Urine Mucus Rare H (None) /hpf SARS-CoV-2 (PCR) (Not Detectd) Disposition Clinical Impression: Nausea, Back pain, Hyperglycemia Disposition: HOME SELF-CARE Condition: Stable Instructions (If sedation given, give patient instructions): Diabetic Hyperglycemia (ED) Additional Instructions: Please follow-up with your primary care doctor. Return for any new or worsening symptoms Is patient prescribed a controlled substance at d/c from ED?: No Referrals: None,Stated [Primary Care Provider] - 1-2 days Time of Disposition: 15:05
[2024-05-29] MEDS: ACET/COD 300 MG/30 MG STARTER PACK 6 TAB BTL PO STA (15:10)
[2024-05-29 15:13] VITALS: BP 150/88; PULSE 84; TEMP 98
== END 2024-05-29 15:13 | disposition home or self-care (01) ==
LOC: EC 12:33
DX: E11.65 Type 2 diabetes mellitus with hyperglycemia (principal); M79.10 Myalgia, unspecified site; M54.9 Dorsalgia, unspecified; F17.290 Nicotine dependence, other tobacco product, uncomplicated; Z88.1 Allergy status to other antibiotic agents
CPT/HCPCS: 36415; 80053; 85025; 81001; 87635; 99284; 96374; 96375; J2405; J1885

== ENCOUNTER 2024-06-02 15:43 | Emergency (ER) | payer MEDICARE ==
[2024-06-02 15:57] VITALS: TEMP 98.9
--- NOTE | 2024-06-02 17:52 | ED ---
Recheck HPI - General Chief Complaint: Recheck/Abnormal Lab/Rx Stated Complaint: arthritis pain (neck) Time Seen by Provider: 06/02/24 16:57 Source: patient, EMS, RN notes reviewed, old records reviewed Mode of arrival: EMS Limitations: no limitations - History of Present Illness Initial Comments: This is a 53 female to the ER today. Presents today for evaluation chronic pain. Patient states she needs something for pain as her arthritis is acting up MD Complaint: medication refill request Returns Today for: persistent/worsening pain related to initial visit Symptoms Since Prior Visit: worsening pain Treatments Prior to Arrival: Given Pain Meds on - Related Data Home Medications Medication Instructions Recorded Confirmed Atorvastatin [Lipitor] 80 mg PO HS 06/25/19 04/26/24 lisinopriL 40 mg PO DAILY 09/24/20 04/26/24 traZODone HCL 50 mg PO HS 01/11/21 04/26/24 Albuterol Inhaler [Ventolin Hfa 2 puff INHALATION RT-QID PRN 03/01/23 04/26/24 Inhaler] Insulin Glargine,Hum.rec.anlog 30 units SQ HS 07/30/23 04/26/24 [Lantus Solostar Pen] Ezetimibe [Zetia] 10 mg PO HS 02/17/24 04/26/24 Insulin Aspart (Niacinamide) 20 units SQ BID 02/17/24 04/26/24 [Fiasp 100 Unit/ml Flextouch Pen] Nystatin 100,000 Unit/gm Powd 1 applic TOPICAL BID PRN 02/17/24 04/26/24 [Mycostatin Powder] Pantoprazole [Protonix] 40 mg PO DAILY 02/17/24 04/26/24 Tirzepatide [Mounjaro] 2.5 mg SQ FR 04/26/24 04/26/24 Previous Rx's Medication Instructions Recorded amLODIPine [Norvasc] 10 mg PO DAILY #30 tab 03/11/23 hydrALAZINE HCL [Apresoline] 25 mg PO BID #60 tab 03/11/23 Ondansetron Odt [Zofran ODT] 4 mg PO Q8HR PRN #10 tab 03/29/24 Ibuprofen [Motrin] 600 mg PO Q8HR PRN 30 Days #30 tab 04/11/24 Famotidine [Pepcid] 20 mg PO DAILY #20 tablet 04/18/24 Albuterol Inhaler [Ventolin Hfa 1 - 2 puff INHALATION Q6H PRN #1 04/30/24 Inhaler] each Azithromycin [Zithromax] 250 mg PO DAILY 4 Days #4 tab 04/30/24 Doxycycline Hyclate 100 mg PO BID #14 tab 05/14/24 Benzonatate [Tessalon [place]] 200 mg PO TID PRN #20 capsule 06/07/24 Ipratropium [place] 0.06%Nasal 2 spray EA NOSTRIL BID #15 ml 06/07/24 [Atrovent Nasal 0.06%] Allergies Allergy/AdvReac Type Severity Reaction Status Date / Time levofloxacin [From Levaquin] Allergy Rash/Hives Verified 06/07/24 06:15 Review of Systems ROS Statement: Those systems with pertinent positive or pertinent negative responses have been documented in the HPI. ROS Other: All systems not noted in ROS Statement are negative. Past Medical History Past Medical History: Diabetes Mellitus, GERD/Reflux, Hyperlipidemia, Hypertension, Syncope Additional Past Medical History / Comment(s): Pt recently admitted to [facility] on 07/21/21 with uncontrolled IDDM and hyperkalemia. Other hx: Recurrent pancreatitis, hypertriglyceridemia, elevated lipase, IDDM type II, UTI, chronic low back pain, bulging discs, dental abscesses in past. History of Any Multi-Drug Resistant Organisms: MRSA Date of last positivie culture/infection: 03/01/23 MDRO Source:: Abdomen Past Surgical History: Tubal Ligation Additional Past Surgical History / Comment(s): Age 7 had VSD repair, tumor removal 03/2023 Past Anesthesia/Blood Transfusion Reactions: No Reported Reaction Past Psychological History: No Psychological Hx Reported Smoking Status: Former smoker, Second hand smoke exposure, Vaper Past Alcohol Use History: None Reported Past Drug Use History: None Reported - Past Family History Mother Family Medical History: No Reported History Additional Family Medical History / Comment(s): Mother was healthy. She is , pt cannot recall cause of . Father Family Medical History: Pneumonia Additional Family Medical History / Comment(s): Father at the age of 67yrs from pneumonia General Exam Limitations: no limitations General appearance: alert, in no apparent distress Head exam: Present: atraumatic, normocephalic, normal inspection Eye exam: Present: normal appearance, PERRL, EOMI. Absent: scleral icterus, conjunctival injection, periorbital swelling ENT exam: Present: normal exam, mucous membranes moist Neck exam: Present: normal inspection. Absent: tenderness, meningismus, lymphadenopathy Respiratory exam: Present: normal lung sounds bilaterally. Absent: respiratory distress, wheezes, rales, rhonchi, stridor Cardiovascular Exam: Present: regular rate, normal rhythm, normal heart sounds. Absent: systolic murmur, diastolic murmur, rubs, gallop, clicks GI/Abdominal exam: Present: soft, normal bowel sounds. Absent: distended, tenderness, guarding, rebound, rigid Extremities exam: Present: normal inspection, full ROM, normal capillary refill. Absent: tenderness, pedal edema, joint swelling, calf tenderness Back exam: Present: normal inspection Neurological exam: Present: alert, oriented X3, CN II-XII intact Psychiatric exam: Present: normal affect, normal mood Skin exam: Present: warm, dry, intact, normal color. Absent: rash Course Vital Signs 06/02/24 06/02/24 15:53 18:12 Temperature 98.9 F Pulse Rate 78 65 Respiratory 18 16 Rate Blood Pressure 131/85 125/80 O2 Sat by Pulse 98 98 Oximetry - Reevaluation(s) Reevaluation #1: 06/02/24 18:19 Medical records reviewed Reevaluation #2: 06/02/24 18:19 Patient's pains improved Reevaluation #3: 06/02/24 18:19 Patient informed of results questions answered Reevaluation #4: Was pt. sent in by a medical professional or institution (, PA, [employer], urgent care, hospital, or long term...) When possible be specific @ -no Did you speak to anyone other than the patient for history (EMS, parent, family, police, friend...)? What history was obtained from this source @ -no Did you review nursing and triage notes (agree or disagree)? Why? @ -agree Are old charts reviewed (outside hosp., previous admission, EMS record, old EKG, old radiological studies, urgent care reports/EKG's, long term records)? Report findings @ -yes Differential Diagnosis (chest pain, altered mental status, abdominal pain women, abdominal pain men, vaginal bleeding, weakness, fever, dyspnea, syncope, headache, dizziness, GI bleed, back pain, seizure, CVA, palpatations, mental health, musculoskeletal)? @ -prior EKG interpreted by me (3pts min.). @ -no X-rays interpreted by me (1pt min.). @ -no CT interpreted by me (1pt min.). @ -no U/S interpreted by me (1pt. min.). @ -no What testing was considered but not performed or refused? (CT, X-rays, U/S, labs)? Why? @ -none What meds were considered but not given or refused? Why? @ -none Did you discuss the management of the patient with other professionals (professionals i.e. , PA, [employer], lab, RT, psych nurse, transition social worker, roll up machine operator, teacher, disbursing officer, welfare case worker)? Give summary @ -no Was smoking cessation discussed for >3mins.? @ -no Was critical care preformed (if so, how long)? @ -no Were there social determinants of health that impacted care today? How? (Homelessness, low income, unemployed, alcoholism, drug addiction, transportation, low edu. Level, literacy, decrease access to med. care, correction, rehab)? @ -none Was there de-escalation of care discussed even if they declined (Discuss DNR or withdrawal of care, Hospice)? DNR status @ -no What co-morbidities impacted this encounter? (DM, HTN, Smoking, COPD, CAD, Cancer, CVA, ARF, Chemo, Hep., AIDS, mental health diagnosis, sleep apnea, morbid obesity)? @ -none Was patient admitted / discharged? Hospital course, mention meds given and route, prescriptions, significant lab abnormalities, going to OR and other pertinent info. @ - 53 female to the ER for evaluation of chronic pain. Patient states she needs medication request, given pain control here in the ER and can be discharged Discharged chronic pain Undiagnosed new problem with uncertain prognosis? @ -no Drug Therapy requiring intensive monitoring for toxicity (Heparin, Nitro, Insulin, Cardizem)? @ -no Were any procedures done? @ -no Diagnosis/symptom? @ - Acute, or Chronic, or Acute on Chronic? @ -Acute Uncomplicated (without systemic symptoms) or Complicated (systemic symptoms)? @ -Complicated Side effects of treatment? @ -no Exacerbation, Progression, or Severe Exacerbation? @ -exacerbation Poses a threat to life or bodily function? How? (Chest pain, [place], [place], pneumonia, PE, COPD, DKA, ARF, appy, cholecystitis, CVA, Diverticulitis, Homicidal, Suicidal, threat to staff... and all critical care pts) @ -no Medical Decision Making - Medical Decision Making 53 female to the ER for evaluation of chronic pain. Patient states she needs medication request, given pain control here in the ER and can be discharged Disposition Clinical Impression: Chronic pain Disposition: HOME SELF-CARE Condition: Good Instructions (If sedation given, give patient instructions): Chronic Pain (ED) Is patient prescribed a controlled substance at d/c from ED?: No Referrals: Ronel Manzano MD [Primary Care Provider] - 1-2 days Time of Disposition: 17:50
[2024-06-02] MEDS: HYDROmorphone 1 MG/ML 1 ML SYRINGE IM STA (17:56)
[2024-06-02] MEDS: ONDANSETRON ODT 4 MG TAB PO STA (17:56)
[2024-06-02 18:12] VITALS: BP 125/80; PULSE 65; RESP 16
== END 2024-06-02 18:12 | disposition home or self-care (01) ==
LOC: EC 15:43 → SUPCPDRO 15:43 → EC 18:12
DX: G89.29 Other chronic pain (principal); M54.2 Cervicalgia; F17.290 Nicotine dependence, other tobacco product, uncomplicated
CPT/HCPCS: 99283; 96372; J1171

== ENCOUNTER 2024-06-04 17:12 | Emergency (ER) | payer MEDICARE ==
--- NOTE | 2024-06-04 17:36 | ED ---
Extremity Problem HPI - General Stated complaint: R elbow pain Time Seen by Provider: 06/04/24 17:36 Source: patient, RN notes reviewed Mode of arrival: EMS Limitations: no limitations - History of Present Illness Initial comments: 53-year-old female presented to the ER for evaluation of right antecubital pain. Patient states she noticed last night when she was reaching for toilet paper and felt the pain. She denies any other injuries or traumas. No paresthesias to right upper extremity. Patient is well-known to this emergency department and has not had numerous IVs recently in this area. Patient has no other complaints at this time. - Related Data Home Medications Medication Instructions Recorded Confirmed Atorvastatin [Lipitor] 80 mg PO HS 06/25/19 04/26/24 lisinopriL 40 mg PO DAILY 09/24/20 04/26/24 traZODone HCL 50 mg PO HS 01/11/21 04/26/24 Albuterol Inhaler [Ventolin Hfa 2 puff INHALATION RT-QID PRN 03/01/23 04/26/24 Inhaler] Insulin Glargine,Hum.rec.anlog 30 units SQ HS 07/30/23 04/26/24 [Lantus Solostar Pen] Ezetimibe [Zetia] 10 mg PO HS 02/17/24 04/26/24 Insulin Aspart (Niacinamide) 20 units SQ BID 02/17/24 04/26/24 [Fiasp 100 Unit/ml Flextouch Pen] Nystatin 100,000 Unit/gm Powd 1 applic TOPICAL BID PRN 02/17/24 04/26/24 [Mycostatin Powder] Pantoprazole [Protonix] 40 mg PO DAILY 02/17/24 04/26/24 Tirzepatide [Mounjaro] 2.5 mg SQ FR 04/26/24 04/26/24 Previous Rx's Medication Instructions Recorded amLODIPine [Norvasc] 10 mg PO DAILY #30 tab 03/11/23 hydrALAZINE HCL [Apresoline] 25 mg PO BID #60 tab 03/11/23 Ondansetron Odt [Zofran ODT] 4 mg PO Q8HR PRN #10 tab 03/29/24 Ibuprofen [Motrin] 600 mg PO Q8HR PRN 30 Days #30 tab 04/11/24 Famotidine [Pepcid] 20 mg PO DAILY #20 tablet 04/18/24 Albuterol Inhaler [Ventolin Hfa 1 - 2 puff INHALATION Q6H PRN #1 04/30/24 Inhaler] each Azithromycin [Zithromax] 250 mg PO DAILY 4 Days #4 tab 04/30/24 Doxycycline Hyclate 100 mg PO BID #14 tab 05/14/24 Allergies Allergy/AdvReac Type Severity Reaction Status Date / Time levofloxacin [From Levaquin] Allergy Rash/Hives Verified 06/04/24 18:07 Review of Systems ROS Statement: Those systems with pertinent positive or pertinent negative responses have been documented in the HPI. ROS Other: All systems not noted in ROS Statement are negative. Past Medical History Past Medical History: Diabetes Mellitus, GERD/Reflux, Hyperlipidemia, Hypertension, Syncope Additional Past Medical History / Comment(s): Pt recently admitted to [facility] on 07/21/21 with uncontrolled IDDM and hyperkalemia. Other hx: Recurrent pancreatitis, hypertriglyceridemia, elevated lipase, IDDM type II, UTI, chronic low back pain, bulging discs, dental abscesses in past. History of Any Multi-Drug Resistant Organisms: MRSA Date of last positivie culture/infection: 03/01/23 MDRO Source:: Abdomen Past Surgical History: Tubal Ligation Additional Past Surgical History / Comment(s): Age 7 had VSD repair, tumor removal 03/2023 Past Anesthesia/Blood Transfusion Reactions: No Reported Reaction Past Psychological History: No Psychological Hx Reported Smoking Status: Former smoker, Second hand smoke exposure, Vaper Past Alcohol Use History: None Reported Past Drug Use History: None Reported - Past Family History Mother Family Medical History: No Reported History Additional Family Medical History / Comment(s): Mother was healthy. She is , pt cannot recall cause of . Father Family Medical History: Pneumonia Additional Family Medical History / Comment(s): Father at the age of 67yrs from pneumonia General Exam - General Exam Comments Initial Comments: Visual Physical Exam Vital signs reviewed General: Well-appearing, nontoxic, no acute distress. Head: Normocephalic, atraumatic Eyes: PERRLA, EOMI ENT: Airway patent Chest: Nonlabored breathing Skin: No visual rash, normal skin tone Neuro: Alert and oriented 3 Musculoskeletal: No gross abnormalities Limitations: no limitations General appearance: alert, in no apparent distress Respiratory exam: Present: normal lung sounds bilaterally. Absent: respiratory distress, wheezes, rales, rhonchi, stridor Cardiovascular Exam: Present: regular rate, normal rhythm, normal heart sounds. Absent: systolic murmur, diastolic murmur, rubs, gallop, clicks Extremities exam: Present: normal inspection, full ROM, normal capillary refill (2+ right radial pulse.), other (No overlying skin changes noted to right antecubital fossa. Patient has full active range of motion. No focal bony tenderness.). Absent: tenderness, pedal edema, joint swelling, calf tenderness Neurological exam: Present: alert, oriented X3, CN II-XII intact Skin exam: Present: warm, dry, intact, normal color. Absent: rash Course Vital Signs 06/04/24 06/04/24 18:04 19:25 Temperature 99.1 F 98.7 F Pulse Rate 58 L 61 Respiratory 18 18 Rate Blood Pressure 179/88 148/91 O2 Sat by Pulse 92 L 95 Oximetry Medical Decision Making - Medical Decision Making I performed the quick note portion of this chart. Electronically signed by Esperanza Celestin PA-C Was pt. sent in by a medical professional or institution (ROSALIE Flaherty, WASTE MACHINE TENDER, urgent care, hospital, or snf...) When possible be specific @ -No Did you speak to anyone other than the patient for history (EMS, parent, family, police, friend...)? What history was obtained from this source @ -No Did you review nursing and triage notes (agree or disagree)? Why? @ -I reviewed and agree with nursing and triage notes Were old charts reviewed (outside hosp., previous admission, EMS record, old EKG, old radiological studies, urgent care reports/EKG's, snf records)? Report findings @ -No old charts were reviewed Differential Diagnosis (chest pain, altered mental status, abdominal pain women, abdominal pain men, vaginal bleeding, weakness, fever, dyspnea, syncope, headache, dizziness, GI bleed, back pain, seizure, CVA, palpatations, mental health, musculoskeletal)? @ -Differential Musculoskeletal:Muscular strain, contusion, ligament sprain, fracture, arthritis, septic arthritis, bursitis, cellulitis, muscle spasm, nerve compression, DVT, arterial occlusion, herpes zoster, electrolyte abnormality, tumor.... This is not meant to be in all inclusive list EKG interpreted by me (3pts min.). @ -None done X-rays interpreted by me (1pt min.). @ -[Right elbow x-ray interpreted me negative for acute fractures. CT interpreted by me (1pt min.). @ -None done U/S interpreted by me (1pt. min.). @ -None done What testing was considered but not performed or refused? (CT, X-rays, U/S, labs)? Why? @ -None What meds were considered but not given or refused? Why? @ -None Did you discuss the management of the patient with other professionals (professionals i.e. , PA, WASTE MACHINE TENDER, lab, RT, psych nurse, social media specialist, air traffic control specialist center, te acher, affirmative action officer, employment case manager)? Give summary @ -No Was smoking cessation discussed for >3mins.? @ -No Was critical care preformed (if so, how long)? @ -No Were there social determinants of health that impacted care today? How? (Homelessness, low income, unemployed, alcoholism, drug addiction, transportation, low edu. Level, literacy, decrease access to med. care, usp, rehab)? @ -No Was there de-escalation of care discussed even if they declined (Discuss DNR or withdrawal of care, Hospice)? DNR status @ -No What co-morbidities impacted this encounter? (DM, HTN, Smoking, COPD, CAD, C ancer, CVA, ARF, Chemo, Hep., AIDS, mental health diagnosis, sleep apnea, morbid obesity)? @ -None Was patient admitted / discharged? Hospital course, mention meds given and route, prescriptions, significant lab abnormalities, going to OR and other pertinent info. @ -Discharge. 53-year-old female presenting to the ER for evaluation of right antecubital fossa pain. Patient is neurovascularly intact with no overlying skin changes. Patient has full active range of motion. No chest pain or shortness of breath. X-rays obtained negative. Patient is stable for discharge after given Tylenol for pain control. Conservative treatment options discussed including ice, heating pad, ibuprofen and Tylenol outpatient. Strict return parameters discussed. Patient discharged stable condition with follow-up to PCP. Patient verbally expressed understanding agree with care plan. Case discussed with ED attending, Dr. Pérez. Undiagnosed new problem with uncertain prognosis? @ -No Drug Therapy requiring intensive monitoring for toxicity (Heparin, Nitro, Insulin, Cardizem)? @ -No Were any procedures done? @ -No Diagnosis/symptom? @ -Right elbow pain Acute, or Chronic, or Acute on Chronic? @ -Acute Uncomplicated (without systemic symptoms) or Complicated (systemic symptoms)? @ -Uncomplicated Side effects of treatment? @ -No Exacerbation, Progression, or Severe Exacerbation? @ -No Poses a threat to life or bodily function? How? (Chest pain, [place], [place], pneumonia, PE, COPD, DKA, ARF, appy, cholecystitis, CVA, Diverticulitis, Homicidal, Suicidal, threat to staff... and all critical care pts) @ -No - Radiology Data Radiology results: report reviewed, image reviewed Disposition Clinical Impression: Elbow pain Disposition: HOME SELF-CARE Condition: Stable Additional Instructions: You may take [id number] ibuprofen and Tylenol for pain control. Follow-up with PCP. Return to the ER for any new or worsening concerns. Is patient prescribed a controlled substance at d/c from ED?: No Referrals: Ronel Manzano MD [Primary Care Provider] - 1-2 days Time of Disposition: 18:48
[2024-06-04 18:08] VITALS: RESP 18
--- NOTE | 2024-06-04 18:34 | XR ---
EXAMINATION TYPE: XR elbow complete RT DATE OF EXAM: 06/04/2024 6:30 PM COMPARISON: None. CLINICAL INDICATION: Female, 53 years old with history of pain, pain TECHNIQUE: 3 view(s) obtained. FINDINGS: Radius aligns normally with the humerus. Anterior fat pad is normal. No elevation of the posterior fa t pad is evident. No acute fractures or dislocations. Follow up exams can be performed 7-10 days from acute trauma for continued pain. IMPRESSION: 1. No acute osseous abnormality right elbow [facility] Justyna Goodman, , 06/04/2024 6:32 PM
[2024-06-04] MEDS: ACETAMINOPHEN TAB 500 MG TAB PO STA (19:08)
[2024-06-04 19:26] VITALS: BP 148/91; PULSE 61; TEMP 98.7
== END 2024-06-04 20:53 | disposition home or self-care (01) ==
LOC: EC 17:12
DX: M25.521 Pain in right elbow (principal); F17.290 Nicotine dependence, other tobacco product, uncomplicated
CPT/HCPCS: 99283

== ENCOUNTER 2024-06-06 19:45 | Emergency (ER) | payer MEDICARE ==
[2024-06-06 20:11] VITALS: RESP 16; TEMP 98.9
--- NOTE | 2024-06-06 20:25 | ED ---
General Adult HPI - General Chief complaint: Back Pain/Injury Stated complaint: Pain Time Seen by Provider: 06/06/24 20:04 Source: patient, EMS, RN notes reviewed Mode of arrival: EMS Limitations: no limitations - History of Present Illness Initial comments: 53-year-old female patient well-known to the emergency department presents for evaluation of abdominal discomfort. Patient states that this started 2 hours ago after she ate dinner. She notes that she is unable to eat or sleep. She does note that just prior to arrival she had pizza without issue. She states that her symptoms started shortly after this. Pain is mostly in the epigastric region and feels like a burning pain. She reports that it radiates up to her throat. She has had pain like this multiple times in the past. She reports that she has been taking her medications as prescribed. She does not take medicine for her stomach. Denies any recent fever, chills.. Denies nausea, vomiting. Reports normal bowel and urinary habits. - Related Data Home Medications Medication Instructions Recorded Confirmed Atorvastatin [Lipitor] 80 mg PO HS 06/25/19 04/26/24 lisinopriL 40 mg PO DAILY 09/24/20 04/26/24 traZODone HCL 50 mg PO HS 01/11/21 04/26/24 Albuterol Inhaler [Ventolin Hfa 2 puff INHALATION RT-QID PRN 03/01/23 04/26/24 Inhaler] Insulin Glargine,Hum.rec.anlog 30 units SQ HS 07/30/23 04/26/24 [Lantus Solostar Pen] Ezetimibe [Zetia] 10 mg PO HS 02/17/24 04/26/24 Insulin Aspart (Niacinamide) 20 units SQ BID 02/17/24 04/26/24 [Fiasp 100 Unit/ml Flextouch Pen] Nystatin 100,000 Unit/gm Powd 1 applic TOPICAL BID PRN 02/17/24 04/26/24 [Mycostatin Powder] Pantoprazole [Protonix] 40 mg PO DAILY 02/17/24 04/26/24 Tirzepatide [Mounjaro] 2.5 mg SQ FR 04/26/24 04/26/24 Previous Rx's Medication Instructions Recorded amLODIPine [Norvasc] 10 mg PO DAILY #30 tab 03/11/23 hydrALAZINE HCL [Apresoline] 25 mg PO BID #60 tab 03/11/23 Ondansetron Odt [Zofran ODT] 4 mg PO Q8HR PRN #10 tab 03/29/24 Ibuprofen [Motrin] 600 mg PO Q8HR PRN 30 Days #30 tab 04/11/24 Famotidine [Pepcid] 20 mg PO DAILY #20 tablet 04/18/24 Albuterol Inhaler [Ventolin Hfa 1 - 2 puff INHALATION Q6H PRN #1 04/30/24 Inhaler] each Azithromycin [Zithromax] 250 mg PO DAILY 4 Days #4 tab 04/30/24 Doxycycline Hyclate 100 mg PO BID #14 tab 05/14/24 Allergies Allergy/AdvReac Type Severity Reaction Status Date / Time levofloxacin [From Levaquin] Allergy Rash/Hives Verified 06/04/24 18:07 Review of Systems ROS Statement: Those systems with pertinent positive or pertinent negative responses have been documented in the HPI. ROS Other: All systems not noted in ROS Statement are negative. Past Medical History Past Medical History: Diabetes Mellitus, GERD/Reflux, Hyperlipidemia, Hypertension, Syncope Additional Past Medical History / Comment(s): Pt recently admitted to [facility] on 07/21/21 with uncontrolled IDDM and hyperkalemia. Other hx: Recurrent pancreatitis, hypertriglyceridemia, elevated lipase, IDDM type II, UTI, chronic low back pain, bulging discs, dental abscesses in past. History of Any Multi-Drug Resistant Organisms: MRSA Date of last positivie culture/infection: 03/01/23 MDRO Source:: Abdomen Past Surgical History: Tubal Ligation Additional Past Surgical History / Comment(s): Age 7 had VSD repair, tumor removal 03/2023 Past Anesthesia/Blood Transfusion Reactions: No Reported Reaction Past Psychological History: No Psychological Hx Reported Smoking Status: Former smoker, Second hand smoke exposure, Vaper Past Alcohol Use History: None Reported Past Drug Use History: None Reported - Past Family History Mother Family Medical History: No Reported History Additional Family Medical History / Comment(s): Mother was healthy. She is , pt cannot recall cause of . Father Family Medical History: Pneumonia Additional Family Medical History / Comment(s): Father at the age of 67yrs from pneumonia General Exam Limitations: no limitations General appearance: alert, in no apparent distress Head exam: Present: atraumatic, normocephalic, normal inspection Eye exam: Present: normal appearance, PERRL, EOMI. Absent: scleral icterus, conjunctival injection, periorbital swelling ENT exam: Present: normal exam, mucous membranes moist Neck exam: Present: normal inspection. Absent: tenderness, meningismus, lymphadenopathy Respiratory exam: Present: normal lung sounds bilaterally. Absent: respiratory distress, wheezes, rales, rhonchi, stridor Cardiovascular Exam: Present: regular rate, normal rhythm, normal heart sounds. Absent: systolic murmur, diastolic murmur, rubs, gallop, clicks GI/Abdominal exam: Present: soft, normal bowel sounds. Absent: distended, tenderness, guarding, rebound, rigid Extremities exam: Present: normal inspection, full ROM, normal capillary refill. Absent: tenderness, pedal edema, joint swelling, calf tenderness Neurological exam: Present: alert, oriented X3 Psychiatric exam: Present: normal affect, normal mood Skin exam: Present: warm, dry, intact, normal color. Absent: rash Course Vital Signs 06/06/24 06/06/24 20:01 20:42 Temperature 98.9 F Pulse Rate 74 72 Respiratory 16 16 Rate Blood Pressure 194/95 172/85 O2 Sat by Pulse 97 97 Oximetry Medical Decision Making - Medical Decision Making Was pt. sent in by a medical professional or institution (, ROSALIE, CRIMINAL INTELLIGENCE ANALYST, urgent care, hospital, or retirement...) When possible be specific @ -No Did you speak to anyone other than the patient for history (EMS, parent, family, police, friend...)? What history was obtained from this source @ -EMS Did you review nursing and triage notes (agree or disagree)? Why? @ -I reviewed and agree with nursing and triage notes Were old charts reviewed (outside hosp., previous admission, EMS record, old EKG, old radiological studies, urgent care reports/EKG's, retirement records)? Report findings @ -No old charts were reviewed Differential Diagnosis (chest pain, altered mental status, abdominal pain women, abdominal pain men, vaginal bleeding, weakness, fever, dyspnea, syncope, headache, dizziness, GI bleed, back pain, seizure, CVA, palpatations, mental health, musculoskeletal)? @ -Differential Abdominal Pain Women: Appendicitis, Cholecystitis, diverticulosis, ischemic bowel, pancreatitis, hepatitis, UTI, gastroenteritis, AAA, incarcerated hernia, bowel obstruction, constipation, inflammatory bowel, hepatitis, peptic ulcer disease, splenic infarction, perforated viscus, vulvitis, ovarian torsion, PID, kidney stone, placenta abruption, this is not meant to be an all-inclusive list EKG interpreted by me (3pts min.). @ -None X-rays interpreted by me (1pt min.). @ -None done CT interpreted by me (1pt min.). @ -None done U/S interpreted by me (1pt. min.). @ -None done What testing was considered but not performed or refused? (CT, X-rays, U/S, labs)? Why? @ -None What meds were considered but not given or refused? Why? @ -None Did you discuss the management of the patient with other professionals (professionals i.e. , PA, CRIMINAL INTELLIGENCE ANALYST, lab, RT, psych nurse, web content & social media manager, electrolytic de scaler, teacher, corporate ethics officer, piano case and bench assembler)? Give summary @ -No Was smoking cessation discussed for >3mins.? @ -No Was critical care preformed (if so, how long)? @ -No Were there social determinants of health that impacted care today? How? (Homelessness, low income, unemployed, alcoholism, drug addiction, transportation, low edu. Level, literacy, decrease access to med. care, long-term, rehab)? @ -No Was there de-escalation of care discussed even if they declined (Discuss DNR or withdrawal of care, Hospice)? DNR status @ -No What co-morbidities impacted this encounter? (DM, HTN, Smoking, COPD, CAD, Cancer, CVA, ARF, Chemo, Hep., AIDS, mental health diagnosis, sleep apnea, morbid obesity)? @ -None Was patient admitted / discharged? Hospital course, mention meds given and route, prescriptions, significant lab abnormalities, going to OR and other pertinent info. @ -Discharge. Patient presented to the emergency department for evaluation of epigastric abdominal pain that she has had multiple times in the past. She denies any changes to his pain. The symptoms started shortly after she ate pizza. She notes that it is in the epigastric region and radiates up into her throat. Her symptoms are very consistent with acid reflux. She is a provided a GI cocktail. She will be discharged home advised follow-up to her PCP. Advised to continue taking her medications as prescribed. She is understanding agreeable plan. Patient stable at time of discharge. Case discussed with Dr. Tobin Undiagnosed new problem with uncertain prognosis? @ -No Drug Therapy requiring intensive monitoring for toxicity (Heparin, Nitro, Insulin, Cardizem)? @ -No Were any procedures done? @ -No Diagnosis/symptom? @ -Acid reflux Acute, or Chronic, or Acute on Chronic? @ -acute Uncomplicated (without systemic symptoms) or Complicated (systemic symptoms)? @ -uncomplicated Side effects of treatment? @ -No Exacerbation, Progression, or Severe Exacerbation? @ -No Poses a threat to life or bodily function? How? (Chest pain, [place], [place], pneumonia, PE, COPD, DKA, ARF, appy, cholecystitis, CVA, Diverticulitis, Homicidal, Suicidal, threat to staff... and all critical care pts) @ -No Disposition Clinical Impression: Gastro-esophageal reflux Disposition: HOME SELF-CARE Condition: Stable Is patient prescribed a controlled substance at d/c from ED?: No Referrals: Ronel Manzano MD [Primary Care Provider] - 1-2 days
[2024-06-06 20:46] VITALS: BP 172/85; PULSE 72
[2024-06-06] MEDS: LIDOCAINE VISCOUS 2% 15 ML CUP PO ONE (20:47)
[2024-06-06] MEDS: MAG HYDROX/AL HYDROX/SIMETH 30 ML CUP PO STA (20:47)
[2024-06-06] MEDS: HYOSCYAMINE SULFATE 0.125 MG TAB PO STA (20:47)
== END 2024-06-06 20:56 | disposition home or self-care (01) ==
LOC: EC 19:45
DX: K21.9 Gastro-esophageal reflux disease without esophagitis (principal); F17.290 Nicotine dependence, other tobacco product, uncomplicated; Z88.1 Allergy status to other antibiotic agents
CPT/HCPCS: 99283

== ENCOUNTER 2024-06-07 05:57 | Emergency (ER) | payer MEDICARE ==
[2024-06-07 06:15] VITALS: TEMP 98.4
--- NOTE | 2024-06-07 06:31 | ED ---
URI HPI - General Chief Complaint: Upper Respiratory Infection Stated Complaint: Coughing and congestion Time Seen by Provider: 06/07/24 06:00 Source: patient, EMS, RN notes reviewed Mode of arrival: EMS Limitations: no limitations - History of Present Illness Initial Comments: This is a 53-year-old female who presents to the emergency department for cou ghing, congestion, neck pain, and back pain. Patient states that it started yesterday. However, she is well-known to this emergency department and voices these complaints each time she is here. States that her inhaler and cough drops help a little bit, however she cannot seem to get it to completely resolve. MD Complaint: cough, nasal congestion - Related Data Home Medications Medication Instructions Recorded Confirmed RX: Atorvastatin [Lipitor] 80 mg PO HS 06/25/19 04/26/24 RX: lisinopriL 40 mg PO DAILY 09/24/20 04/26/24 RX: traZODone HCL 50 mg PO HS 01/11/21 04/26/24 RX: Albuterol Inhaler [Ventolin 2 puff INHALATION RT-QID PRN 03/01/23 04/26/24 Hfa Inhaler] RX: Insulin Glargine,Hum.rec.anlog 30 units SQ HS 07/30/23 04/26/24 [Lantus Solostar Pen] RX: Ezetimibe [Zetia] 10 mg PO HS 02/17/24 04/26/24 RX: Insulin Aspart (Niacinamide) 20 units SQ BID 02/17/24 04/26/24 [Fiasp 100 Unit/ml Flextouch Pen] RX: Nystatin 100,000 Unit/gm Powd 1 applic TOPICAL BID PRN 02/17/24 04/26/24 [Mycostatin Powder] RX: Pantoprazole [Protonix] 40 mg PO DAILY 02/17/24 04/26/24 RX: Tirzepatide [Mounjaro] 2.5 mg SQ FR 04/26/24 04/26/24 Previous Rx's Medication Instructions Recorded RX: amLODIPine [Norvasc] 10 mg PO DAILY #30 tab 03/11/23 RX: hydrALAZINE HCL [Apresoline] 25 mg PO BID #60 tab 03/11/23 RX: Ondansetron Odt [Zofran ODT] 4 mg PO Q8HR PRN #10 tab 03/29/24 RX: Ibuprofen [Motrin] 600 mg PO Q8HR PRN 30 Days #30 tab 04/11/24 RX: Famotidine [Pepcid] 20 mg PO DAILY #20 tablet 04/18/24 RX: Albuterol Inhaler [Ventolin 1 - 2 puff INHALATION Q6H PRN #1 04/30/24 Hfa Inhaler] each RX: Azithromycin [Zithromax] 250 mg PO DAILY 4 Days #4 tab 04/30/24 RX: Doxycycline Hyclate 100 mg PO BID #14 tab 05/14/24 Benzonatate [Tessalon Perle] 200 mg PO TID PRN #20 capsule 06/07/24 RX: Ipratropium [place] 0.06%Nasal 2 spray EA NOSTRIL BID #15 ml 06/07/24 [Atrovent Nasal 0.06%] Allergies Allergy/AdvReac Type Severity Reaction Status Date / Time levofloxacin [From Levaquin] Allergy Rash/Hives Verified 06/07/24 06:15 Review of Systems ROS Statement: Those systems with pertinent positive or pertinent negative responses have been documented in the HPI. ROS Other: All systems not noted in ROS Statement are negative. Past Medical History Past Medical History: Diabetes Mellitus, GERD/Reflux, Hyperlipidemia, Hypertension, Syncope Additional Past Medical History / Comment(s): Pt recently admitted to [facility] on 07/21/21 with uncontrolled IDDM and hyperkalemia. Other hx: Recurrent p ancreatitis, hypertriglyceridemia, elevated lipase, IDDM type II, UTI, chronic low back pain, bulging discs, dental abscesses in past. History of Any Multi-Drug Resistant Organisms: MRSA Date of last positivie culture/infection: 03/01/23 MDRO Source:: Abdomen Past Surgical History: Tubal Ligation Additional Past Surgical History / Comment(s): Age 7 had VSD repair, tumor removal 03/2023 Past Anesthesia/Blood Transfusion Reactions: No Reported Reaction Past Psychological History: No Psychological Hx Reported Smoking Status: Former smoker, Second hand smoke exposure, Vaper Past Alcohol Use History: None Reported Past Drug Use History: None Reported - Past Family History Mother Family Medical History: No Reported History Additional Family Medical History / Comment(s): Mother was healthy. She is , pt cannot recall cause of . Father Family Medical History: Pneumonia Additional Family Medical History / Comment(s): Father at the age of 67yrs from pneumonia General Exam Limitations: no limitations General appearance: alert, in no apparent distress Head exam: Present: atraumatic, normocephalic, normal inspection Neck exam: Present: normal inspection. Absent: tenderness, meningismus, lymphadenopathy Respiratory exam: Present: normal lung sounds bilaterally. Absent: respiratory distress, wheezes, rales, rhonchi, stridor Cardiovascular Exam: Present: regular rate, normal rhythm Back exam: Present: normal inspection, full ROM. Absent: tenderness Neurological exam: Present: alert, oriented X3, CN II-XII intact Psychiatric exam: Present: normal affect, normal mood Skin exam: Present: warm, dry, intact, normal color. Absent: rash Course Vital Signs 06/07/24 06/07/24 06:11 06:19 Temperature 98.4 F Pulse Rate 65 Respiratory 15 16 Rate Blood Pressure 181/91 O2 Sat by Pulse 95 Oximetry Medical Decision Making - Medical Decision Making This is a 53-year-old female who presents to the emergency department for coughing and congestion. Was pt. sent in by a medical professional or institution? @ -No Did you speak to anyone other than the patient for history? @ -No Did you review nursing and triage notes? @ -Yes, and I agree, it is accurate with regards to the patient's symptoms. Were old charts reviewed? @ -No Differential Diagnosis? @ -Differential Cough: Influenza, Covid, RSV, croup, allergic rhinitis, GERD, pneumonia, bronchitis, COPD, viral pharyngitis, streptococcal pharyngitis, this is not meant to be an all-inclusive list. EKG interpreted by me (3pts min.)? @ -Not obtained X-rays interpreted by me (1pt min.)? @ -Chest x-ray obtained, my interpretation identifies no localized consolid ations or infiltrates. CT interpreted by me (1pt min.)? @ -Not obtained U/S interpreted by me (1pt. min.)? @ -Not obtained What testing was considered but not performed? (CT, X-rays, U/S, labs)? Why? @ -None What meds were considered but not given? Why? @ -None Did you discuss the management of the patient with other professionals? @ -No Did you reconcile home meds? @ -No Was smoking cessation discussed for >3mins.? @ -I discussed smoking cessation for greater than 3 minutes. The risk of smoking were discussed with the patient including but not limited to risks of cancer, stroke, coronary artery disease and COPD. Also discussed with patient were multiple methods of quitting smoking. Lastly we discussed the financial cost of smoking. Was critical care preformed (if so, how long)? @ -No Were there social determinants of health that impacted care today? How? (Homelessness, low income, unemployed, alcoholism, drug addiction, transportation, low edu. Level, literacy, decrease access to med. care, retirement, rehab)? @ -No Was there de-escalation of care discussed even if they declined? (Discuss DNR or withdrawal of care, Hospice)? @ -No What co-morbidities impacted this encounter? (DM, HTN, Smoking, COPD, CAD, Cancer, CVA, Hep., AIDS, mental health diagnosis, sleep apnea, morbid obesity)? @ -DM, smoking Was patient admitted / discharged? @ -Discharged. COVID, influenza, and RSV testing negative. Chest x-ray reveals no acute process. Symptoms treated in the emergency department. Ipratropium nasal spray and Tessalon Perles prescribed to help with her coughing and postnasal drip. Discussed with the patient the need to follow-up with her primary care provider to avoid recurrent emergency department visits for the same complaints. Patient discharged home in stable condition. Case discussed with ED attending Dr. De Los Santos. Return precautions reviewed in depth, the patient is instructed to return to the emergency department with any new, worsening, or concerning symptoms. Patient verbalized understanding. Undiagnosed new problem with uncertain prognosis? @ -None Drug Therapy requiring intensive monitoring for toxicity (Heparin, Nitro, Insulin, Cardizem)? @ -None Were any procedures done? @ -None Diagnosis/symptom? @ -URI, postnasal drip Acute, or Chronic, or Acute on Chronic? @ -Chronic Uncomplicated (without systemic symptoms) or Complicated (systemic symptoms)? @ -Uncomplicated Side effects of treatment? @ -None Exacerbation, Progression, or Severe Exacerbation] @ -Stable Poses a threat to life or bodily function? @ -No - Lab Data Lab Results 06/07/24 Range/Units 06:16 Influenza Type A (PCR) Not Detected (Not Detectd) Influenza Type B (PCR) Not Detected (Not Detectd) RSV (PCR) Not Detected (Not Detectd) SARS-CoV-2 (PCR) Not Detected (Not Detectd) - Radiology Data Radiology results: report reviewed, image reviewed Disposition Clinical Impression: URI (upper respiratory infection), PND (post-nasal drip), Nicotine dependence Disposition: HOME SELF-CARE Instructions (If sedation given, give patient instructions): Upper Respiratory Infection (ED) Additional Instructions: Return to the emergency department with any new, worsening, or concerning symptoms. Take the Tessalon Perles up to every 8 hours as needed for coughing. Use the ipratropium nasal spray to help with your runny nose. Follow up with your primary care provider in 1-2 days. Prescriptions: RX: Ipratropium [place] 0.06%Nasal [Atrovent Nasal 0.06%] 2 spray EA NOSTRIL BID #15 ml Benzonatate [Tessalon Perle] 200 mg PO TID PRN #20 capsule PRN Reason: Cough Is patient prescribed a controlled substance at d/c from ED?: No Referrals: Ronel Manzano MD [Primary Care Provider] - 1-2 days Time of Disposition: 07:16
[2024-06-07] MEDS: BENZONATATE 100 MG CAP PO STA (06:41)
[2024-06-07] MEDS: guaiFENesin-DM 600/30MG 1 EACH TAB.ER.12H PO STA (06:42)
[2024-06-07] MEDS: ORPHENADRINE 30 MG/ML 2 ML VIAL IM STA (06:43)
[2024-06-07] MEDS: KETOROLAC 15 MG/ML 1 ML VIAL IM STA (06:45)
[2024-06-07] MEDS: LIDOCAINE 4% PATCH TOPICAL ONE (06:46)
[2024-06-07 07:09] LABS: Influenza A Not Detected (Not Detectd); Influenza B Not Detected (Not Detectd); RSV Not Detected (Not Detectd)
--- NOTE | 2024-06-07 07:11 | XR ---
EXAMINATION TYPE: XR chest 2V DATE OF EXAM: 06/07/2024 6:58 AM COMPARISON: Multiple radiographs, with the most recent on 05/21/2024. TECHNIQUE: XR chest 2V Frontal and lateral views of the chest. CLINICAL INDICATION:Female, 53 years old with history of Cough; FINDINGS: Lungs/Pleura: There is no evidence of pleural effusion, focal consolidation, or pneumothorax. Left m idlung linear atelectasis. Pulmonary vascularity: Unremarkable. Heart/mediastinum: Cardiomediastinal silhouette is unremarkable. Musculoskeletal: No acute osseous pathology. Midline sternotomy wires are noted and stable. IMPRESSION: No acute cardiopulmonary disease/process. [facility], , 06/07/2024 7:08 AM
[2024-06-07 07:30] VITALS: BP 181/102; PULSE 61; RESP 18
[2024-06-07] MEDS: HYDROmorphone 1 MG/ML 1 ML SYRINGE IM STA (07:33)
[2024-06-07] MEDS: ACET/COD 300 MG/30 MG STARTER PACK 6 TAB BTL PO STA (07:35)
[2024-06-07] MEDS: CYCLOBENZAPRINE 10MG STARTER 3 TAB BTL PO STA (07:35)
[2024-06-07] MEDS: IBUPROFEN 600 MG STARTER PACK 4 TAB BTL PO STA (07:35)
== END 2024-06-07 07:46 | disposition home or self-care (01) ==
LOC: EC 05:57
DX: J06.9 Acute upper respiratory infection, unspecified (principal); R09.82 Postnasal drip; E11.9 Type 2 diabetes mellitus without complications; F17.290 Nicotine dependence, other tobacco product, uncomplicated; Z88.1 Allergy status to other antibiotic agents
CPT/HCPCS: 87636; 71046; 99284; 99406; 96372 ×3; J2360; J1171; J1885

== ENCOUNTER 2024-06-10 03:10 | Emergency (ER) | payer MEDICARE ==
[2024-06-10 03:19] VITALS: RESP 18
--- NOTE | 2024-06-10 03:24 | ED ---
Recheck HPI - General Chief Complaint: Extremity Problem,Nontraumatic Stated Complaint: Pain Time Seen by Provider: 06/10/24 03:14 Source: EMS, RN notes reviewed, old records reviewed Mode of arrival: EMS Limitations: no limitations - History of Present Illness Initial Comments: This is a 53-year-old female to the ER for evaluation patient states she was unable to sleep tonight secondary to pain chronic pain chest pain back pain arm pain. Patient has a longstanding history of pain control issues, noncompliance with medication issues related to diabetes and generalized body aches and pains. Patient without fever or shortness of breath today and states she could not sleep secondary to chronic back pain and chest pain MD Complaint: medication refill request Returns Today for: persistent/worsening pain related to initial visit Symptoms Since Prior Visit: worsening pain Context: ran out of medication Treatments Prior to Arrival: Given Pain Meds on - Related Data Home Medications Medication Instructions Recorded Confirmed Atorvastatin [Lipitor] 80 mg PO HS 06/25/19 06/13/24 lisinopriL 40 mg PO DAILY 09/24/20 06/13/24 traZODone HCL 50 mg PO HS 01/11/21 06/13/24 Albuterol Inhaler [Ventolin Hfa 2 puff INHALATION RT-QID PRN 03/01/23 06/13/24 Inhaler] Insulin Glargine,Hum.rec.anlog 30 units SQ HS 07/30/23 06/13/24 [Lantus Solostar Pen] Ezetimibe [Zetia] 10 mg PO HS 02/17/24 06/13/24 Insulin Aspart (Niacinamide) 20 units SQ AC-TID 02/17/24 06/13/24 [Fiasp 100 Unit/ml Flextouch Pen] Nystatin 100,000 Unit/gm Powd 1 applic TOPICAL BID PRN 02/17/24 06/13/24 [Mycostatin Powder] Pantoprazole [Protonix] 40 mg PO DAILY 02/17/24 06/13/24 metFORMIN HCL 1,000 mg PO BID 06/13/24 06/13/24 Previous Rx's Medication Instructions Recorded amLODIPine [Norvasc] 10 mg PO DAILY #30 tab 03/11/23 hydrALAZINE HCL [Apresoline] 25 mg PO BID #60 tab 03/11/23 Ondansetron Odt [Zofran ODT] 4 mg PO Q8HR PRN #10 tab 03/29/24 Ibuprofen [Motrin] 600 mg PO Q8HR PRN 30 Days #30 tab 04/11/24 Famotidine [Pepcid] 20 mg PO DAILY #20 tablet 04/18/[address] [place] 0.06%Nasal 2 spray EA NOSTRIL BID #15 ml 06/07/24 [Atrovent Nasal 0.06%] Allergies Allergy/AdvReac Type Severity Reaction Status Date / Time levofloxacin [From Levaquin] Allergy Rash/Hives Verified 06/15/24 02:54 Review of Systems ROS Statement: Those systems with pertinent positive or pertinent negative responses have been documented in the HPI. ROS Other: All systems not noted in ROS Statement are negative. Past Medical History Past Medical History: Diabetes Mellitus, GERD/Reflux, Hyperlipidemia, Hyperte nsion, Syncope Additional Past Medical History / Comment(s): Pt recently admitted to [facility] on 07/21/21 with uncontrolled IDDM and hyperkalemia. Other hx: Recurrent pancreatitis, hypertriglyceridemia, elevated lipase, IDDM type II, UTI, chronic low back pain, bulging discs, dental abscesses in past. History of Any Multi-Drug Resistant Organisms: MRSA Date of last positivie culture/infection: 03/01/23 MDRO Source:: Abdomen Past Surgical History: Tubal Ligation Additional Past Surgical History / Comment(s): Age 7 had VSD repair, tumor removal 03/2023 Past Anesthesia/Blood Transfusion Reactions: No Reported Reaction Past Psychological History: No Psychological Hx Reported Smoking Status: Former smoker, Second hand smoke exposure, Vaper Past Alcohol Use History: None Reported Past Drug Use History: None Reported - Past Family History Mother Family Medical History: No Reported History Additional Family Medical History / Comment(s): Mother was healthy. She is , pt cannot recall cause of . Father Family Medical History: Pneumonia Additional Family Medical History / Comment(s): Father at the age of 67yrs from pneumonia General Exam Limitations: no limitations General appearance: alert, in no apparent distress Head exam: Present: atraumatic, normocephalic, normal inspection Eye exam: Present: normal appearance, PERRL, EOMI. Absent: scleral icterus, conjunctival injection, periorbital swelling ENT exam: Present: normal exam, mucous membranes moist Neck exam: Present: normal inspection. Absent: tenderness, meningismus, lymphadenopathy Respiratory exam: Present: normal lung sounds bilaterally. Absent: respiratory distress, wheezes, rales, rhonchi, stridor Cardiovascular Exam: Present: regular rate, normal rhythm, normal heart sounds. Absent: systolic murmur, diastolic murmur, rubs, gallop, clicks GI/Abdominal exam: Present: soft, normal bowel sounds. Absent: distended, tenderness, guarding, rebound, rigid Extremities exam: Present: normal inspection, full ROM, normal capillary refill. Absent: tenderness, pedal edema, joint swelling, calf tenderness Back exam: Present: normal inspection Neurological exam: Present: alert, oriented X3, CN II-XII intact Psychiatric exam: Present: normal affect, normal mood Skin exam: Present: warm, dry, intact, normal color. Absent: rash Course Vital Signs 06/10/24 06/10/24 06/10/24 03:13 04:24 05:22 Temperature 98.3 F 98.2 F 97.9 F Pulse Rate 59 L 67 65 Respiratory 18 18 18 Rate Blood Pressure 155/99 180/91 169/72 O2 Sat by Pulse 97 98 97 Oximetry - Reevaluation(s) Reevaluation #1: 06/10/24 03:23 Medical records reviewed Reevaluation #2: 06/10/24 03:23 Patient symptoms improved Reevaluation #3: 06/10/24 03:23 Patient informed of results questions answered Reevaluation #4: Was pt. sent in by a medical professional or institution (, PA, LABOR RELATIONS ANALYST, urgent care, hospital, or group home...) When possible be specific @ -no Did you speak to anyone other than the patient for history (EMS, parent, family, police, friend...)? What history was obtained from this source @ -no Did you review nursing and triage notes (agree or disagree)? Why? @ -agree Are old charts reviewed (outside hosp., previous admission, EMS record, old EKG, old radiological studies, urgent care reports/EKG's, group home records)? Report findings @ -yes Differential Diagnosis (chest pain, altered mental status, abdominal pain women, abdominal pain men, vaginal bleeding, weakness, fever, dyspnea, syncope, headache, dizziness, GI bleed, back pain, seizure, CVA, palpatations, mental health, musculoskeletal)? @ -prior EKG interpreted by me (3pts min.). @ -no X-rays interpreted by me (1pt min.). @ -no CT interpreted by me (1pt min.). @ -no U/S interpreted by me (1pt. min.). @ -no What testing was considered but not performed or refused? (CT, X-rays, U/S, labs)? Why? @ -none What meds were considered but not given or refused? Why? @ -none Did you discuss the management of the patient with other professionals (professionals i.e. DrShayan, PA, LABOR RELATIONS ANALYST, lab, RT, psych nurse, geriatric social work professor, credit relationship manager, teacher, complaint evaluation officer, pillowcase sewer)? Give summary @ -no Was smoking cessation discussed for >3mins.? @ -no Was critical care preformed (if so, how long)? @ -no Were there social determinants of health that impacted care today? How? (Homelessness, low income, unemployed, alcoholism, drug addiction, transportation, low edu. Level, literacy, decrease access to med. care, penitentiary, rehab)? @ -none Was there de-escalation of care discussed even if they declined (Discuss DNR or withdrawal of care, Hospice)? DNR status @ -no What co-morbidities impacted this encounter? (DM, HTN, Smoking, COPD, CAD, Cancer, CVA, ARF, Chemo, Hep., AIDS, mental health diagnosis, sleep apnea, morbid obesity)? @ -none Was patient admitted / discharged? Hospital course, mention meds given and route, prescriptions, significant lab abnormalities, going to OR and other pertinent info. @ -53 female to ER for chronic pain. Pain is improved here in the ER and can be discharged home Discharge Undiagnosed new problem with uncertain prognosis? @ -no Drug Therapy requiring intensive monitoring for toxicity (Heparin, Nitro, Insulin, Cardizem)? @ -no Were any procedures done? @ -no Diagnosis/symptom? @ -chronic pain Acute, or Chronic, or Acute on Chronic? @ -Acute Uncomplicated (without systemic symptoms) or Complicated (systemic symptoms)? @ -Complicated Side effects of treatment? @ -no Exacerbation, Progression, or Severe Exacerbation? @ -exacerbation Poses a threat to life or bodily function? How? (Chest pain, [place], MD, pneumonia, PE, COPD, DKA, ARF, appy, cholecystitis, CVA, Diverticulitis, Homicidal, Suicidal, threat to staff... and all critical care pts) @ -no Reevaluation #5: Differential Back Pain: Strain, zoster, cauda equina syndrome, epidural abscess, vertebral osteomyelitis, discitis, fracture, subluxation, disc herniation, DJD, spinal stenosis, dissection, AAA, pancreatitis, peptic ulcer disease, pyelonephritis, kidney stone, this is not meant to be an all-inclusive list. Medical Decision Making - Medical Decision Making 53 female with acute on chronic pain. No acute distress patient feels well and can be discharged home - Radiology Data Radiology results: report reviewed (Chest x-ray is negative for acute disease), image reviewed Disposition Clinical Impression: Chest pain, Chronic pain Disposition: HOME SELF-CARE Condition: Good Instructions (If sedation given, give patient instructions): Costochondritis (ED) Is patient prescribed a controlled substance at d/c from ED?: No Referrals: Ronel Manzano MD [Primary Care Provider] - 1-2 days [facility] [Provider Group] - 1-2 days Time of Disposition: 04:00
[2024-06-10] MEDS: HYDROmorphone 1 MG/ML 1 ML SYRINGE IM STA (03:42)
[2024-06-10] MEDS: ACET/COD 300 MG/30 MG STARTER PACK 6 TAB BTL PO STA (04:21)
--- NOTE | 2024-06-10 04:40 | XR ---
EXAM: XR Chest, 1 View CLINICAL HISTORY: ITS.REASON XR Reason: cpp TECHNIQUE: Frontal view of the chest. COMPARISON: No relevant prior studies available. FINDINGS: Lungs: No consolidation or mass. Pleural space: No acute findings. Heart: cardiomegaly. Bones/joints: No acute findings. IMPRESSION: No acute cardiopulmonary process.
[2024-06-10 05:22] VITALS: BP 169/72; PULSE 65; TEMP 97.9
== END 2024-06-10 05:27 | disposition home or self-care (01) ==
LOC: EC 03:10
DX: G89.29 Other chronic pain (principal); R07.89 Other chest pain; F17.290 Nicotine dependence, other tobacco product, uncomplicated
CPT/HCPCS: 71045; 99285; 96372; J1171

== ENCOUNTER 2024-06-12 19:39 | Observation (INO) | payer MEDICARE, OTHER ==
[2024-06-12 20:33] LABS: Anisocytosis Slight; Basophils # (A) 0.1 k/uL (0-0.2); Basophils % (A) 1 %; Eosinophils # (A) 0.3 k/uL (0-0.7); Eosinophils % (A) 3 %; HCT 40.6 % (34.0-46.0); HGB 12.5 gm/dL (11.4-16.0); Hypochromasia Moderate; Lymphocytes # (A) 2.7 k/uL (1.0-4.8); Lymphocytes % (A) 27 %; MCH 25.9 pg (25.0-35.0); MCHC 30.8 g/dL (31.0-37.0); Mean Platelet Volume 6.7; Monocytes # (A) 0.4 k/uL (0-1.0); Monocytes % (A) 4 %; Neutrophils # (A) 6.4 k/uL (1.3-7.7); Neutrophils % (A) 64 %; Platelet Count 566 k/uL (150-450); RBC 4.84 m/uL (3.80-5.40); RDW 16.4 % (11.5-15.5)
[2024-06-12] MEDS: SODIUM CHLORIDE 0.9% 1,000 ML IV ONE (20:33)
[2024-06-12] MEDS: KETOROLAC 15 MG/ML 1 ML VIAL IVP STA (20:34)
[2024-06-12 20:49] LABS: ALT 18 U/L (4-34); AST 24 U/L (14-36); African American GFR (CKD) >90 (>60 ml/min/1.73 sqM); Albumin 3.7 g/dL (3.5-5.0); Alkaline Phosphatase 144 U/L (38-126); Amylase 44 U/L (30-110); Anion Gap 13 mmol/L; Blood Urea Nitrogen 13 mg/dL (7-17); Calcium 8.7 mg/dL (8.4-10.2); Carbon Dioxide 24 mmol/L (22-30); Chloride 94 mmol/L (98-107); Lipase 109 U/L (23-300); Non-African American GFR(CKD) >90 (>60 ml/min/1.73 sqM); Potassium 4.9 mmol/L (3.5-5.1); Sodium 131 mmol/L (137-145); Total Bilirubin 0.6 mg/dL (0.2-1.3); Total Protein 6.4 g/dL (6.3-8.2)
[2024-06-12 20:55] LABS: Appearance,Urine Clear (Clear); Bilirubin,Urine Negative (Negative); Blood,Urine Negative (Negative); Color,Urine Light Yellow; Glucose,Urine (UA) 4+ (Negative); Ketones,Urine Negative (Negative); Leukocyte Esterase,Urine Negative (Negative); Nitrite,Urine Negative (Negative); PH, Urine 5.5 (5.0-8.0); Protein,Urine 2+ (Negative); RBC,Urine 1 /hpf (0-5); Specific Gravity,Urine 1.028 (1.001-1.035); Squamous Epithelial Cell,Urine 2 /hpf (0-4); Urobilinogen,Urine <2.0 mg/dL (<2.0); WBC,Urine 2 /hpf (0-5)
[2024-06-12 20:59] LABS: Glucose 563 mg/dL (74-99)
--- NOTE | 2024-06-12 21:21 | ED ---
General Adult HPI - General Chief complaint: Abdominal Pain Stated complaint: Back/Abd Pain Time Seen by Provider: 06/12/24 21:21 Source: patient Limitations: no limitations - History of Present Illness Initial comments: 53-year-old female presented to the ER for evaluation of generalized abdominal pain and suprapubic abscess. Patient reports she is noted generalized abdominal pain over the past week. She describes it as a crampy abdominal discomfort. She denies any nausea, vomiting, diarrhea or constipation. No urinary complaints. Patient does report a suprapubic abscess which she has noticed for the past 2 days. Patient reports she attempted to pop this after cleaning it with alcohol pad and a needle that she cleaned. She states she got clear fluid over this area. Patient denies any fevers or chills. - Related Data Home Medications Medication Instructions Recorded Confirmed Atorvastatin [Lipitor] 80 mg PO HS 06/25/19 04/26/24 lisinopriL 40 mg PO DAILY 09/24/20 04/26/24 traZODone HCL 50 mg PO HS 01/11/21 04/26/24 Albuterol Inhaler [Ventolin Hfa 2 puff INHALATION RT-QID PRN 03/01/23 04/26/24 Inhaler] Insulin Glargine,Hum.rec.anlog 30 units SQ HS 07/30/23 04/26/24 [Lantus Solostar Pen] Ezetimibe [Zetia] 10 mg PO HS 02/17/24 04/26/24 Insulin Aspart (Niacinamide) 20 units SQ BID 02/17/24 04/26/24 [Fiasp 100 Unit/ml Flextouch Pen] Nystatin 100,000 Unit/gm Powd 1 applic TOPICAL BID PRN 02/17/24 04/26/24 [Mycostatin Powder] Pantoprazole [Protonix] 40 mg PO DAILY 02/17/24 04/26/24 Tirzepatide [Mounjaro] 2.5 mg SQ FR 04/26/24 04/26/24 Previous Rx's Medication Instructions Recorded amLODIPine [Norvasc] 10 mg PO DAILY #30 tab 03/11/23 hydrALAZINE HCL [Apresoline] 25 mg PO BID #60 tab 03/11/23 Ondansetron Odt [Zofran ODT] 4 mg PO Q8HR PRN #10 tab 03/29/24 Ibuprofen [Motrin] 600 mg PO Q8HR PRN 30 Days #30 tab 04/11/24 Famotidine [Pepcid] 20 mg PO DAILY #20 tablet 04/18/24 Albuterol Inhaler [Ventolin Hfa 1 - 2 puff INHALATION Q6H PRN #1 04/30/24 Inhaler] each Azithromycin [Zithromax] 250 mg PO DAILY 4 Days #4 tab 04/30/24 Doxycycline Hyclate 100 mg PO BID #14 tab 05/14/24 Benzonatate [Tessalon Perle] 200 mg PO TID PRN #20 capsule 06/07/24 Ipratropium [place] 0.06%Nasal 2 spray EA NOSTRIL BID #15 ml 06/07/24 [Atrovent Nasal 0.06%] Allergies Allergy/AdvReac Type Severity Reaction Status Date / Time levofloxacin [From Levaquin] Allergy Rash/Hives Verified 06/12/24 19:48 Review of Systems ROS Statement: Those systems with pertinent positive or pertinent negative responses have been documented in the HPI. ROS Other: All systems not noted in ROS Statement are negative. Past Medical History Past Medical History: Diabetes Mellitus, GERD/Reflux, Hyperlipidemia, Hypertension, Syncope Additional Past Medical History / Comment(s): Pt recently admitted to [facility] on 07/21/21 with uncontrolled IDDM and hyperkalemia. Other hx: Recurrent pancreatitis, hypertriglyceridemia, elevated lipase, IDDM type II, UTI, chronic low back pain, bulging discs, dental abscesses in past. History of Any Multi-Drug Resistant Organisms: MRSA Date of last positivie culture/infection: 03/01/23 MDRO Source:: Abdomen Past Surgical History: Tubal Ligation Additional Past Surgical History / Comment(s): Age 7 had VSD repair, tumor removal 03/2023 Past Anesthesia/Blood Transfusion Reactions: No Reported Reaction Past Psychological History: No Psychological Hx Reported Smoking Status: Former smoker, Second hand smoke exposure, Vaper Past Alcohol Use History: None Reported Past Drug Use History: None Reported - Past Family History Mother Family Medical History: No Reported History Additional Family Medical History / Comment(s): Mother was healthy. She is , pt cannot recall cause of . Father Family Medical History: Pneumonia Additional Family Medical History / Comment(s): Father at the age of 67yrs from pneumonia General Exam Limitations: no limitations General appearance: alert, in no apparent distress Respiratory exam: Present: normal lung sounds bilaterally. Absent: respiratory distress, wheezes, rales, rhonchi, stridor Cardiovascular Exam: Present: regular rate, normal rhythm, normal heart sounds. Absent: systolic murmur, diastolic murmur, rubs, gallop, clicks GI/Abdominal exam: Present: soft, guarding (generalized), normal bowel sounds, other (suprapubic area about 2 cm in diameter with overlying erythema and central ulceration. tender to touch) Neurological exam: Present: alert, oriented X3, CN II-XII intact Skin exam: Present: warm, dry, intact, normal color. Absent: rash Course Vital Signs 06/12/24 06/12/24 19:44 22:56 Temperature 99.4 F Pulse Rate 90 67 Respiratory 18 18 Rate Blood Pressure 134/60 150/70 O2 Sat by Pulse 95 96 Oximetry - Reevaluation(s) Reevaluation #1: 06/12/24 21:45 Case discussed with [facility], Dr. Beckwith, who accepts admission. Medical Decision Making - Medical Decision Making Was pt. sent in by a medical professional or institution (, PA, [employer], urgent c are, hospital, or intermediate...) When possible be specific @ -No Did you speak to anyone other than the patient for history (EMS, parent, family, police, friend...)? What history was obtained from this source @ -No Did you review nursing and triage notes (agree or disagree)? Why? @ -I reviewed and agree with nursing and triage notes Were old charts reviewed (outside hosp., previous admission, EMS record, old EKG, old radiological studies, urgent care reports/EKG's, intermediate records)? Report findings @ -Previous medical records Differential Diagnosis (chest pain, altered mental status, abdominal pain women, abdominal pain men, vaginal bleeding, weakness, fever, dyspnea, syncope, headache, dizziness, GI bleed, back pain, seizure, CVA, palpatations, mental health, musculoskeletal)? @ -Differential Abdominal Pain Women:Appendicitis, Cholecystitis, diverticulosis, ischemic bowel, pancreatitis, hepatitis, UTI, gastroenteritis, AAA, incarcerated hernia, bowel obstruction, constipation, inflammatory bowel, hepatitis, peptic ulcer disease, splenic infarction, perforated viscus, vulvitis, ovarian torsion, PID, kidney stone, placenta abruption, this is not meant to be an all-inclusive list EKG interpreted by me (3pts min.). @ -None done X-rays interpreted by me (1pt min.). @ -None done CT interpreted by me (1pt min.). @ -None done U/S interpreted by me (1pt. min.). @ -None done What testing was considered but not performed or refused? (CT, X-rays, U/S, labs)? Why? @ -None What meds were considered but not given or refused? Why? @ -None Did you discuss the management of the patient with other professionals (professionals i.e. , PA, [employer], lab, RT, psych nurse, community mental health social worker, business process consultant, teacher, information security officer, case resource manager)? Give summary @ -Yes, case discussed with [facility], Dr. Beckwith for admission. Was smoking cessation discussed for >3mins.? @ -No Was critical care preformed (if so, how long)? @ -No Were there social determinants of health that impacted care today? How? (Homelessness, low income, unemployed, alcoholism, drug addiction, transportation, low edu. Level, literacy, decrease access to med. care, prison, rehab)? @ -Patient has a guardian Was there de-escalation of care discussed even if they declined (Discuss DNR or withdrawal of care, Hospice)? DNR status @ -No What co-morbidities impacted this encounter? (DM, HTN, Smoking, COPD, CAD, Can cer, CVA, ARF, Chemo, Hep., AIDS, mental health diagnosis, sleep apnea, morbid obesity)? @ -Diabetes mellitus, GERD, hyperlipidemia, hypertension Was patient admitted / discharged? Hospital course, mention meds given and route, prescriptions, significant lab abnormalities, going to OR and other pertinent info. @ -[Admitted. 53-year-old female presented to the ER for evaluation of abdominal pain and suprapubic abscess.Vitals within acceptable limits. Laboratory studies obtained showing a WBC of 10.0 no left shift hyperglycemia at 536 with a lactic of 5.0. Acetone negative. Urine with 4+ glucose negative ketones. No evidence of infection. Patient given 1 L IV fluid bolus along with 14 units IV insulin for hyperglycemia with improvement to 254. Given u ncontrolled hyperglycemia and suprapubic abscess, admission was considered and discussed with EM, Dr. Beckwith, for further evaluation and IV antibiotics. Patient started on vancomycin, Rocephin and Flagyl. Blood cultures obtained. ID on consult. Needle aspiration was attempted over suprapubic region without any drainage expressed. Patient agreeable for admission. Patient admitted in stable condition for further evaluation and treatment. Case discussed with ED attending, Dr. Huynh. Undiagnosed new problem with uncertain prognosis? @ -No Drug Therapy requiring intensive monitoring for toxicity (Heparin, Nitro, Insulin, Cardizem)? @ -No Were any procedures done? @ -No Diagnosis/symptom? @ -Cellulitis/hyperglycemia Acute, or Chronic, or Acute on Chronic? @ -Acute Uncomplicated (without systemic symptoms) or Complicated (systemic symptoms)? @ -Complicated Side effects of treatment? @ -No Exacerbation, Progression, or Severe Exacerbation? @ -No Poses a threat to life or bodily function? How? (Chest pain, [place], [place], pneumonia, PE, COPD, DKA, ARF, appy, cholecystitis, CVA, Diverticulitis, Homicidal, Suicidal, threat to staff... and all critical care pts) @ -Yes - Lab Data Result diagrams: 06/12/24 20:24 06/12/24 20:24 Lab Results 06/12/24 06/12/24 06/12/24 Range/Units 20:24 20:24 20:24 WBC 10.0 (3.8-10.6) k/uL RBC 4.84 (3.80-5.40) m/uL Hgb 12.5 (11.4-16.0) gm/dL Hct 40.6 (34.0-46.0) % MCV 84.0 (80.0-100.0) fL MCH 25.9 (25.0-35.0) pg MCHC 30.8 L (31.0-37.0) g/dL RDW 16.4 H (11.5-15.5) % Plt Count 566 H (150-450) k/uL MPV 6.7 Neutrophils % 64 % Lymphocytes % 27 % Monocytes % 4 % Eosinophils % 3 % Basophils % 1 % Neutrophils # 6.4 (1.3-7.7) k/uL Lymphocytes # 2.7 (1.0-4.8) k/uL Monocytes # 0.4 (0-1.0) k/uL Eosinophils # 0.3 (0-0.7) k/uL Basophils # 0.1 (0-0.2) k/uL Hypochromasia Moderate Anisocytosis Slight Sodium 131 L (137-145) mmol/L Potassium 4.9 (3.5-5.1) mmol/L Chloride 94 L (98-107) mmol/L Carbon Dioxide 24 (22-30) mmol/L Anion Gap 13 mmol/L BUN 13 (7-17) mg/dL Creatinine 0.70 (0.52-1.04) mg/dL Est GFR (CKD-EPI)AfAm >90 (>60 ml/min/1.73 sqM) Est GFR (CKD-EPI)NonAf >90 (>60 ml/min/1.73 sqM) Glucose 563 H* (74-99) mg/dL Lactic Ac Sepsis Rflx Plasma Lactic Acid Travon 5.0 H* (0.7-2.0) mmol/L Calcium 8.7 (8.4-10.2) mg/dL Total Bilirubin 0.6 (0.2-1.3) mg/dL AST 24 (14-36) U/L ALT 18 (4-34) U/L Alkaline Phosphatase 144 H (38-126) U/L Total Protein 6.4 (6.3-8.2) g/dL Albumin 3.7 (3.5-5.0) g/dL Amylase 44 (30-110) U/L Lipase 109 (23-300) U/L Urine Color Urine Appearance (Clear) Urine pH (5.0-8.0) Ur Specific [place] (1.001-1.035) Urine Protein (Negative) Urine Glucose (UA) (Negative) Urine Ketones (Negative) Urine Blood (Negative) Urine Nitrite (Negative) Urine Bilirubin (Negative) Urine Urobilinogen (<2.0) mg/dL Ur Leukocyte Esterase (Negative) Urine RBC (0-5) /hpf Urine WBC (0-5) /hpf Ur Squamous Epith Cells (0-4) /hpf Acetone, Qual (Negative) 06/12/24 06/12/24 06/12/24 Range/Units 20:24 20:33 20:59 WBC (3.8-10.6) k/uL RBC (3.80-5.40) m/uL Hgb (11.4-16.0) gm/dL Hct (34.0-46.0) % MCV (80.0-100.0) fL MCH (25.0-35.0) pg MCHC (31.0-37.0) g/dL RDW (11.5-15.5) % Plt Count (150-450) k/uL MPV Neutrophils % % Lymphocytes % % Monocytes % % Eosinophils % % Basophils % % Neutrophils # (1.3-7.7) k/uL Lymphocytes # (1.0-4.8) k/uL Monocytes # (0-1.0) k/uL Eosinophils # (0-0.7) k/uL Basophils # (0-0.2) k/uL Hypochromasia Anisocytosis Sodium (137-145) mmol/L Potassium (3.5-5.1) mmol/L Chloride (98-107) mmol/L Carbon Dioxide (22-30) mmol/L Anion Gap mmol/L BUN (7-17) mg/dL Creatinine (0.52-1.04) mg/dL Est GFR (CKD-EPI)AfAm (>60 ml/min/1.73 sqM) Est GFR (CKD-EPI)NonAf (>60 ml/min/1.73 sqM) Glucose (74-99) mg/dL Lactic Ac Sepsis Rflx Y Plasma Lactic Acid Travon (0.7-2.0) mmol/L Calcium (8.4-10.2) mg/dL Total Bilirubin (0.2-1.3) mg/dL AST (14-36) U/L ALT (4-34) U/L Alkaline Phosphatase (38-126) U/L Total Protein (6.3-8.2) g/dL Albumin (3.5-5.0) g/dL Amylase (30-110) U/L Lipase (23-300) U/L Urine Color Light Yellow Urine Appearance Clear (Clear) Urine pH 5.5 (5.0-8.0) Ur Specific [place] 1.028 (1.001-1.035) Urine Protein 2+ H (Negative) Urine Glucose (UA) 4+ H (Negative) Urine Ketones Negative (Negative) Urine Blood Negative (Negative) Urine Nitrite Negative (Negative) Urine Bilirubin Negative (Negative) Urine Urobilinogen <2.0 (<2.0) mg/dL Ur Leukocyte Esterase Negative (Negative) Urine RBC 1 (0-5) /hpf Urine WBC 2 (0-5) /hpf Ur Squamous Epith Cells 2 (0-4) /hpf Acetone, Qual Negative (Negative) Disposition Clinical Impression: Hyperglycemia, Uncontrolled type 2 diabetes mellitus, Cellulitis Disposition: ADMITTED IP TO THIS HOSP Condition: Stable Time of Disposition: 21:45
[2024-06-12] MEDS ORDERED: VANCOMYCIN IV PER PHARMACY 1 EACH MISC MISCELLANE PRN (21:42)
[2024-06-12] MEDS ORDERED: NALOXONE 0.4 MG/ML 1 ML VIAL IV PRN (21:43)
[2024-06-12] MEDS: INSULIN REGULAR 100 UNIT/ML VIAL (IV) IV ONE (21:59)
[2024-06-12] MEDS: SODIUM CHLORIDE 0.9% 1,000 ML IV SCH (22:01)
[2024-06-12] MEDS: cefTRIAXone IN SWFI 1,000 MG/10 ML SYRINGE IVP STA (22:21)
[2024-06-12] MEDS: metroNIDAZOLE-NS PMX 500 MG in SALINE 1 100ML.BAG IVPB STA (22:52)
[2024-06-12 23:54] LABS: Glucose,Whole Blood 254 mg/dL (70-110)
[2024-06-13] MEDS: ACETAMINOPHEN TAB 325 MG TAB PO PRN (01:04)
[2024-06-13] MEDS: ONDANSETRON 4 MG/2 ML VIAL IVP STA (01:05)
[2024-06-13] MEDS: VANCOMYCIN 1,500 MG in SODIUM CHLORIDE 0.9% 500 ML 500 ML IVPB ONE (01:18)
[2024-06-13] MEDS: IBUPROFEN 400 MG TAB PO PRN (04:08)
[2024-06-13 08:26] LABS: Glucose,Whole Blood 323 mg/dL (70-110)
[2024-06-13] MEDS ORDERED: DEXTROSE 50% SYRINGE 50 ML IVP PRN ×2 (09:11)
[2024-06-13] MEDS: INSULIN LISPRO (HumaLOG) 100 UNIT/ML 10 mL VL SQ SCH ×2 (09:17→13:03)
[2024-06-13] MEDS ORDERED: ONDANSETRON ODT 4 MG TAB PO PRN (10:08)
[2024-06-13] MEDS: PANTOPRAZOLE 40 MG TABLET PO SCH (11:27)
[2024-06-13] MEDS: hydrALAZINE HCL 25 MG TAB PO SCH (11:27)
[2024-06-13] MEDS: amLODIPine 10 MG TAB PO SCH (11:27)
[2024-06-13 12:03] LABS: Glucose,Whole Blood 438 mg/dL (70-110)
--- NOTE | 2024-06-13 13:38 | P.CONS ---
History of Present Illness - Reason for Consult Consult date: 06/13/24 Abscess Requesting physician: Carmen Celestin - Chief Complaint Suprapubic area pain swelling induration x few days - History of Present Illness Patient is a 53-year-old female with a past medical history significant for diabetes mellitus hypertension hyperlipidemia reflux previous history of MRSA skin soft tissue infection presented to the hospital for evaluation of painful lump to the suprapubic area that apparently been going on for the last few days patient mention it started as a pimple that she tried to alexis subsequently has increased in size for the patient presented to the hospital and apparently did have a some drainage procedure done in the ER h owever no culture were done patient denies high-grade fever or any chills and no fever have been recorded except low-grade fever of 99.4 on presentation to the hospital patient was complaining of pain to the suprapubic area to be sharp almost 10 out of 10 without any radiation and mention to have some drainage patient denies having any chest pain shortness of breath or cough no nausea vomiting abdominal pain or any diarrhea patient was nontachycardic hypotensive or hypoxic on presentation to the hospital patient did have white count of 10,000 creatinine 0.70 lactic acid is elevated liver enzymes are normal urine has been negative patient has been started on vancomycin for pharmacy to dose an d is a dose of ceftriaxone infectious disease was consulted for further management of antibiotic therapy Review of Systems Positive point and negatives has been mentioned in the HPI, complete review of systems was performed and all other systems are negative Past Medical History Past Medical History: Diabetes Mellitus, GERD/Reflux, Hyperlipidemia, Hypertension, Syncope Additional Past Medical History / Comment(s): Pt recently admitted to [facility] on 07/21/21 with uncontrolled IDDM and hyperkalemia. Other hx: Recurrent pancreatitis, hypertriglyceridemia, elevated lipase, IDDM type II, UTI, chronic low back pain, bulging discs, dental abscesses in past. History of Any Multi-Drug Resistant Organisms: MRSA Year Discovered:: 03/01/23 MDRO Source:: Abdomen Past Surgical History: Tubal Ligation Additional Past Surgical History / Comment(s): Age 7 had VSD repair, tumor removal 03/2023 Past Anesthesia/Blood Transfusion Reactions: No Reported Reaction Past Psychological History: No Psychological Hx Reported Smoking Status: Former smoker, Second hand smoke exposure, Vaper Past Alcohol Use History: None Reported Past Drug Use History: None Reported - Past Family History Mother Family Medical History: No Reported History Additional Family Medical History / Comment(s): Mother was healthy. She is , pt cannot recall cause of . Father Family Medical History: Pneumonia Additional Family Medical History / Comment(s): Father at the age of 67yrs from pneumonia Medications and Allergies Home Medications Medication Instructions Recorded Confirmed Type Atorvastatin [Lipitor] 80 mg PO HS 06/25/19 06/13/24 History lisinopriL 40 mg PO DAILY 09/24/20 06/13/24 History traZODone HCL 50 mg PO HS 01/11/21 06/13/24 History Albuterol Inhaler [Ventolin Hfa 2 puff INHALATION RT-QID PRN 03/01/23 06/13/24 History Inhaler] amLODIPine [Norvasc] 10 mg PO DAILY #30 tab 03/11/23 06/13/24 Rx hydrALAZINE HCL [Apresoline] 25 mg PO BID #60 tab 03/11/23 06/13/24 Rx Insulin Glargine,Hum.rec.anlog 30 units SQ HS 07/30/23 06/13/24 History [Lantus Solostar Pen] Ezetimibe [Zetia] 10 mg PO HS 02/17/24 06/13/24 History Insulin Aspart (Niacinamide) 20 units SQ AC-TID 02/17/24 06/13/24 History [Fiasp 100 Unit/ml Flextouch Pen] Nystatin 100,000 Unit/gm Powd 1 applic TOPICAL BID PRN 02/17/24 06/13/24 History [Mycostatin Powder] Pantoprazole [Protonix] 40 mg PO DAILY 02/17/24 06/13/24 History Ondansetron Odt [Zofran ODT] 4 mg PO Q8HR PRN #10 tab 03/29/24 06/13/24 Rx Ibuprofen [Motrin] 600 mg PO Q8HR PRN 30 Days #30 tab 04/11/24 06/13/24 Rx Famotidine [Pepcid] 20 mg PO DAILY #20 tablet 04/18/24 06/13/24 Rx Ipratropium [place] 0.06%Nasal 2 spray EA NOSTRIL BID #15 ml 06/07/24 06/13/24 Rx [Atrovent Nasal 0.06%] metFORMIN HCL 1,000 mg PO BID 06/13/24 06/13/24 History Allergies Allergy/AdvReac Type Severity Reaction Status Date / Time levofloxacin [From Levaquin] Allergy Rash/Hives Verified 06/13/24 08:53 Physical Exam Vitals: Vital Signs Temp Pulse Pulse Resp BP BP Pulse Ox 06/13/24 09:40 97.7 F 51 L 17 187/93 97 06/13/24 09:12 98.0 F 60 18 171/75 96 06/13/24 07:54 98.2 F 60 18 182/80 97 06/13/24 06:35 77 18 177/81 97 06/12/24 22:56 67 18 150/70 96 06/12/24 19:44 99.4 F 90 18 134/60 95 Intake and Output 06/12/24 06/13/24 06/13/24 22:59 06:59 14:59 Other: Weight 81.647 kg 81.647 kg GENERAL DESCRIPTION: Middle-age female lying in bed, no distress. No tachypnea or accessory muscle of respiration use. HEENT: Shows Pallor , no scleral icterus. Oral mucous membrane is dry. No thrush NECK: Trachea central, no thyromegaly. LUNGS: Unlabored breathing. Clear to auscultation anteriorly. No wheeze or crackle. HEART: S1, S2, regular rate and rhythm. No loud murmur ABDOMEN: Soft, no tenderness , guarding or rigidity, no organomegaly EXTREMITIES: No edema of feet. SKIN: Suprapubic area did have area of induration and a small wound deep culture were obtained. NEUROLOGICAL: The patient is awake, alert, oriented x3, mood and affect normal. Results CBC & Chem 7: 06/12/24 20:24 06/12/24 20:24 Labs: Abnormal Lab Results - Last 24 Hours (Table) 06/12/24 06/12/24 06/12/24 Range/Units 20:24 20:24 20:24 MCHC 30.8 L (31.0-37.0) g/dL RDW 16.4 H (11.5-15.5) % Plt Count 566 H (150-450) k/uL Sodium 131 L (137-145) mmol/L Chloride 94 L (98-107) mmol/L Glucose 563 H* (74-99) mg/dL POC Glucose (mg/dL) (70-110) mg/dL Plasma Lactic Acid Travon 5.0 H* (0.7-2.0) mmol/L Alkaline Phosphatase 144 H (38-126) U/L Urine Protein (Negative) Urine Glucose (UA) (Negative) 06/12/24 06/12/24 06/13/24 Range/Units 20:33 23:53 00:15 MCHC (31.0-37.0) g/dL RDW (11.5-15.5) % Plt Count (150-450) k/uL Sodium (137-145) mmol/L Chloride (98-107) mmol/L Glucose (74-99) mg/dL POC Glucose (mg/dL) 254 H (70-110) mg/dL Plasma Lactic Acid Travon 2.6 H* (0.7-2.0) mmol/L Alkaline Phosphatase (38-126) U/L Urine Protein 2+ H (Negative) Urine Glucose (UA) 4+ H (Negative) 06/13/24 06/13/24 06/13/24 Range/Units 05:15 08:24 10:17 MCHC (31.0-37.0) g/dL RDW (11.5-15.5) % Plt Count (150-450) k/uL Sodium (137-145) mmol/L Chloride (98-107) mmol/L Glucose (74-99) mg/dL POC Glucose (mg/dL) 323 H (70-110) mg/dL Plasma Lactic Acid Travon 2.5 H* 3.8 H* (0.7-2.0) mmol/L Alkaline Phosphatase (38-126) U/L Urine Protein (Negative) Urine Glucose (UA) (Negative) Assessment and Plan (1) Uncontrolled type 2 diabetes mellitus Current Visit: Yes Status: Acute Code(s): [id number] - SNOMED Code(s): 355555937 (2) Abdominal wall cellulitis Current Visit: No Status: Acute Code(s): L03.311 - CELLULITIS OF ABDOMINAL WALL SNOMED Code(s): 29227066 (3) Abdominal wall skin ulcer Current Visit: No Status: Acute Code(s): L98.499 - NON-PRESSURE CHRONIC ULCER OF SKIN OF SITES W UNSP SEVERITY SNOMED Code(s): 440060849 Plan: 1patient is in the hospital with suprapubic area pain swelling and redness with an area of induration abscess and cellulitis status post drainage by the patient as well as attending the ER physician I The patient for possible MRSA skin soft tissue infection. 2local culture have been obtained and will guide further antibiotic therapy. 3vancomycin pharmacy to dose target trough of 15 while watching kidney function and Vanco trough closely. We will follow on clinical condition and cultures to further adjust medication if needed Thank you for this consultation we will follow the patient along with you Dictation was produced using [employer] dictation software. please excuse any grammatical, word or spelling errors. Time with Patient: Greater than 30
--- NOTE | 2024-06-13 14:21 | P.HPIM ---
History of Present Illness H&P Date: 06/13/24 History of present illness; patient is a 53-year-old lady with past medical history significant for insulin-dependent diabetes mellitus, hyperlipidemia, hypertension who presented to the ER because abdominal pain and swelling of right side of the groin. Patient stated she was all right couple of days back when he started noticing that there was swelling developing in the right groin area. There was no complaint of any fever or chills. Patient was complaining of abdominal pain because of this groin swelling. There was no complaint nausea, vomiting or altered bowel movement. Patient noticed gradual increase in the size of the swelling in the groin area, patient tried to pop it with a need le. Because of abdominal pain and groin swelling, patient came to the ER Initial lab work done in the ER showed WBC 10, hemoglobin 12.5, platelet count 566, sodium 139, potassium 4.9, BUN 30, creatinine 0.70, glucose 563 lactate 5 Alkaline Phosphatase 144 UA negative for infection Patient admitted to internal medicine service REVIEW OF SYSTEMS: CONSTITUTIONAL: No fever, no malaise, no fatigue. HEENT: No recent visual problems or hearing problems. Denied any sore throat. CARDIOVASCULAR: No chest pain, orthopnea, PND, no palpitations, no syncope. PULMONARY: As mentioned above GASTROINTESTINAL: As mentioned above NEUROLOGICAL: No headaches, no weakness, no numbness. HEMATOLOGICAL: Denies any bleeding or petechiae. GENITOURINARY: Denies any burning micturition, frequency, or urgency. MUSCULOSKELETAL/RHEUMATOLOGICAL: Denies any joint pain, swelling, or any muscle pain. ENDOCRINE: Denies any polyuria or polydipsia. The rest of the 14-point review of systems is negative. PHYSICAL EXAMINATION: GENERAL: The patient is alert and oriented x3, not in any acute distress. Well developed, well nourished. HEENT: Pupils are round and equally reacting to light. EOMI. No scleral icterus. No conjunctival pallor. Normocephalic, atraumatic. No pharyngeal erythema. No thyromegaly. CARDIOVASCULAR: S1 and S2 present. No murmurs, rubs, or gallops. PULMONARY: Chest is clear to auscultation, no wheezing or crackles. ABDOMEN: Soft, nontender, nondistended, normoactive bowel sounds. No palpable organomegaly. MUSCULOSKELETAL: No joint swelling or deformity. EXTREMITIES: No cyanosis, clubbing, or pedal edema. NEUROLOGICAL: Gross neurological examination did not reveal any focal deficits. SKIN: Right groin erythema, tenderness Assessment and plan Right groin abscess Abdominal wall cellulitis Hyperglycemia Lactic acidosis Insulin-dependent diabetes mellitus Hypertension Hyperlipidemia Monitor vital signs Monitor CBC Monitor CMP Continue telemetry monitoring Ordered blood cultures Ordered wound cultures Ordered vancomycin pharmacy dose Ordered blood glucose monitoring, resume home regimen of insulin Resume home med Consult ID Labs and medication were reviewed.. Continue same treatment. Continue with symptomatic treatment. Resume home medication. Monitor labs and vitals. DVT and GI prophylaxis. Further recommendations as per clinical course of the patient Dictation was produced using [employer] dictation software. please excuse any grammatical, word or spelling errors. Past Medical History Past Medical History: Diabetes Mellitus, GERD/Reflux, Hyperlipidemia, Hypertension, Syncope Additional Past Medical History / Comment(s): Pt recently admitted to [facility] on 07/21/21 with uncontrolled IDDM and hyperkalemia. Other hx: Recurrent pancreatitis, hypertriglyceridemia, elevated lipase, IDDM type II, UTI, chronic low back pain, bulging discs, dental abscesses in past. History of Any Multi-Drug Resistant Organisms: MRSA Date of last positivie culture/infection: 03/01/23 MDRO Source:: Abdomen Past Surgical History: Tubal Ligation Additional Past Surgical History / Comment(s): Age 7 had VSD repair, tumor removal 03/2023 Past Anesthesia/Blood Transfusion Reactions: No Reported Reaction Past Psychological History: No Psychological Hx Reported Smoking Status: Former smoker, Second hand smoke exposure, Vaper Past Alcohol Use History: None Reported Past Drug Use History: None Reported - Past Family History Mother Family Medical History: No Reported History Additional Family Medical History / Comment(s): Mother was healthy. She is , pt cannot recall cause of . Father Family Medical History: Pneumonia Additional Family Medical History / Comment(s): Father at the age of 67yrs from pneumonia Medications and Allergies Home Medications Medication Instructions Recorded Confirmed Type Atorvastatin [Lipitor] 80 mg PO HS 06/25/19 06/13/24 History lisinopriL 40 mg PO DAILY 09/24/20 06/13/24 History traZODone HCL 50 mg PO HS 01/11/21 06/13/24 History Albuterol Inhaler [Ventolin Hfa 2 puff INHALATION RT-QID PRN 03/01/23 06/13/24 History Inhaler] amLODIPine [Norvasc] 10 mg PO DAILY #30 tab 03/11/23 06/13/24 Rx hydrALAZINE HCL [Apresoline] 25 mg PO BID #60 tab 03/11/23 06/13/24 Rx Insulin Glargine,Hum.rec.anlog 30 units SQ HS 07/30/23 06/13/24 History [Lantus Solostar Pen] Ezetimibe [Zetia] 10 mg PO HS 02/17/24 06/13/24 History Insulin Aspart (Niacinamide) 20 units SQ AC-TID 02/17/24 06/13/24 History [Fiasp 100 Unit/ml Flextouch Pen] Nystatin 100,000 Unit/gm Powd 1 applic TOPICAL BID PRN 02/17/24 06/13/24 History [Mycostatin Powder] Pantoprazole [Protonix] 40 mg PO DAILY 02/17/24 06/13/24 History Ondansetron Odt [Zofran ODT] 4 mg PO Q8HR PRN #10 tab 03/29/24 06/13/24 Rx Ibuprofen [Motrin] 600 mg PO Q8HR PRN 30 Days #30 tab 04/11/24 06/13/24 Rx Famotidine [Pepcid] 20 mg PO DAILY #20 tablet 04/18/24 06/13/24 Rx Ipratropium [place] 0.06%Nasal 2 spray EA NOSTRIL BID #15 ml 06/07/24 06/13/24 Rx [Atrovent Nasal 0.06%] metFORMIN HCL 1,000 mg PO BID 06/13/24 06/13/24 History Allergies Allergy/AdvReac Type Severity Reaction Status Date / Time levofloxacin [From Levaquin] Allergy Rash/Hives Verified 06/13/24 08:53 Physical Exam Vitals: Vital Signs Temp Pulse Resp BP Pulse Ox 06/13/24 09:12 98.0 F 60 18 171/75 96 06/13/24 07:54 98.2 F 60 18 182/80 97 06/13/24 06:35 77 18 177/81 97 06/12/24 22:56 67 18 150/70 96 06/12/24 19:44 99.4 F 90 18 134/60 95 Intake and Output 06/12/24 06/13/24 06/13/24 22:59 06:59 14:59 Other: Weight 81.647 kg Results CBC & Chem 7: 06/12/24 20:24 06/12/24 20:24 Labs: Abnormal Lab Results - Last 24 Hours (Table) 06/12/24 06/12/24 06/12/24 Range/Units 20:24 20:24 20:24 MCHC 30.8 L (31.0-37.0) g/dL RDW 16.4 H (11.5-15.5) % Plt Count 566 H (150-450) k/uL Sodium 131 L (137-145) mmol/L Chloride 94 L (98-107) mmol/L Glucose 563 H* (74-99) mg/dL POC Glucose (mg/dL) (70-110) mg/dL Plasma Lactic Acid [place] 5.0 H* (0.7-2.0) mmol/L Alkaline Phosphatase 144 H (38-126) U/L Urine Protein (Negative) Urine Glucose (UA) (Negative) 06/12/24 06/12/24 06/13/24 Range/Units 20:33 23:53 00:15 MCHC (31.0-37.0) g/dL RDW (11.5-15.5) % Plt Count (150-450) k/uL Sodium (137-145) mmol/L Chloride (98-107) mmol/L Glucose (74-99) mg/dL POC Glucose (mg/dL) 254 H (70-110) mg/dL Plasma Lactic Acid [place] 2.6 H* (0.7-2.0) mmol/L Alkaline Phosphatase (38-126) U/L Urine Protein 2+ H (Negative) Urine Glucose (UA) 4+ H (Negative) 06/13/24 06/13/24 Range/Units 05:15 08:24 MCHC (31.0-37.0) g/dL RDW (11.5-15.5) % Plt Count (150-450) k/uL Sodium (137-145) mmol/L Chloride (98-107) mmol/L Glucose (74-99) mg/dL POC Glucose (mg/dL) 323 H (70-110) mg/dL Plasma Lactic Acid [place] 2.5 H* (0.7-2.0) mmol/L Alkaline Phosphatase (38-126) U/L Urine Protein (Negative) Urine Glucose (UA) (Negative)
[2024-06-13] MEDS: VANCOMYCIN 1,500 MG in SODIUM CHLORIDE 0.9% 500 ML 500 ML IVPB SCH (14:52)
[2024-06-13 17:27] LABS: Glucose,Whole Blood 304 mg/dL (70-110)
[2024-06-13 19:32] VITALS: RESP 18; TEMP 97.8
[2024-06-13 19:50] LABS: Glucose,Whole Blood 249 mg/dL (70-110)
[2024-06-13] MEDS: IPRATROPIUM BROMIDE 0.06% NASAL SPRAY (15 ML) EA NOSTRIL SCH (19:57)
[2024-06-13] MEDS: traZODone HCL 50 MG TAB PO SCH (19:57)
[2024-06-13] MEDS: ATORVASTATIN 80 MG TAB PO SCH (19:57)
[2024-06-13] MEDS: EZETIMIBE 10 MG TAB PO SCH (19:58)
[2024-06-13] MEDS: INSULIN GLARGINE (LANTUS) 100 UNIT/ML SYR SQ SCH (20:07)
[2024-06-13 22:42] VITALS: BP 146/97; PULSE 55
[2024-06-14] MEDS ORDERED: VANCOMYCIN TROUGH DUE 1 EACH MISC MISCELLANE ONE (12:00)
--- NOTE | 2024-06-16 09:00 | P.DS ---
Providers Date of admission: 06/12/24 21:43 Expected date of discharge: 06/14/24 Attending physician: Kannan Lundberg Consults: 06/12/24 21:43 Consult Physician Urgent Consulting Provider: Mell Mcfarland Consult Reason/Comments: suprapubic abscess Do you want consulting provider notified?: Yes Primary care physician: [facility] Course: Discharge diagnoses; Right groin abscess Abdominal wall cellulitis Hyperglycemia Lactic acidosis Insulin-dependent diabetes mellitus Hypertension Hyperlipidemia Hospital course; patient is a 53-year-old lady with past medical history significant for insulin- dependent diabetes mellitus, hyperlipidemia, hypertension who presented to the ER because abdominal pain and swelling of right side of the groin. Patient stated she was all right couple of days back when he started noticing that there was swelling developing in the right groin area. There was no complaint of any fever or chills. Patient was complaining of abdominal pain because of this groin swelling. There was no complaint nausea, vomiting or altered bowel movement. Patient noticed gradual increase in the size of the swelling in the groin area, patient tried to pop it with a needle. Because of abdominal pain and groin swelling, patient came to the ER Initial lab work done in the ER showed WBC 10, hemoglobin 12.5, platelet count 566, sodium 139, potassium 4.9, BUN 30, creatinine 0.70, glucose 563 lactate 5 Alkaline Phosphatase 144 UA negative for infection Patient admitted to internal medicine service. ID consulted, they agreed with condition of IV antibiotics. While in the hospital, patient stated that she wants to leave AMA, patient public guardian was notified by nursing staff about patient desires to leave AGAINST MEDICAL ADVICE, guardian stated the patient can leave AMA, patient signed AMA. Send left Dictation was produced using [employer] dictation software. please excuse any grammatical, word or spelling errors. Patient Condition at Discharge: Stable Plan - Discharge Summary New Discharge Prescriptions: No Action Atorvastatin [Lipitor] 80 mg PO HS hydrALAZINE HCL [Apresoline] 25 mg PO BID #60 tab Insulin Glargine,Hum.rec.anlog [Lantus Solostar Pen] 30 units SQ HS Pantoprazole [Protonix] 40 mg PO DAILY Ondansetron Odt [Zofran ODT] 4 mg PO Q8HR PRN #10 tab PRN Reason: Nausea Ibuprofen [Motrin] 600 mg PO Q8HR PRN 30 Days #30 tab PRN Reason: Pain Ipratropium [place] 0.06%Nasal [Atrovent Nasal 0.06%] 2 spray EA NOSTRIL BID #15 ml lisinopriL 40 mg PO DAILY traZODone HCL 50 mg PO HS Albuterol Inhaler [Ventolin Hfa Inhaler] 2 puff INHALATION RT-QID PRN PRN Reason: Shortness Of Breath amLODIPine [Norvasc] 10 mg PO DAILY #30 tab Ezetimibe [Zetia] 10 mg PO HS Insulin Aspart (Niacinamide) [Fiasp 100 Unit/ml Flextouch Pen] 20 units SQ AC-TID Nystatin 100,000 Unit/gm Powd [Mycostatin Powder] 1 applic TOPICAL BID PRN PRN Reason: Rash Famotidine [Pepcid] 20 mg PO DAILY #20 tablet metFORMIN HCL 1,000 mg PO BID Discharge Medication List Atorvastatin [Lipitor] 80 mg PO HS 06/25/19 [History] lisinopriL 40 mg PO DAILY 09/24/20 [History] traZODone HCL 50 mg PO HS 01/11/21 [History] Albuterol Inhaler [Ventolin Hfa Inhaler] 2 puff INHALATION RT-QID PRN 03/01/23 [History] amLODIPine [Norvasc] 10 mg PO DAILY #30 tab 03/11/23 [Rx] hydrALAZINE HCL [Apresoline] 25 mg PO BID #60 tab 03/11/23 [Rx] Insulin Glargine,Hum.rec.anlog [Lantus Solostar Pen] 30 units SQ HS 07/30/23 [ History] Ezetimibe [Zetia] 10 mg PO HS 02/17/24 [History] Insulin Aspart (Niacinamide) [Fiasp 100 Unit/ml Flextouch Pen] 20 units SQ AC- TID 02/17/24 [History] Nystatin 100,000 Unit/gm Powd [Mycostatin Powder] 1 applic TOPICAL BID PRN 02/17/24 [History] Pantoprazole [Protonix] 40 mg PO DAILY 02/17/24 [History] Ondansetron Odt [Zofran ODT] 4 mg PO Q8HR PRN #10 tab 03/29/24 [Rx] Ibuprofen [Motrin] 600 mg PO Q8HR PRN 30 Days #30 tab 04/11/24 [Rx] Famotidine [Pepcid] 20 mg PO DAILY #20 tablet 04/18/24 [Rx] Ipratropium [place] 0.06%Nasal [Atrovent Nasal 0.06%] 2 spray EA NOSTRIL BID #15 ml 06/07/24 [Rx] metFORMIN HCL 1,000 mg PO BID 06/13/24 [History] Follow up Appointment(s)/Referral(s): Ronel Manzano MD [Primary Care Provider] - 1-2 days Discharge Disposition: LEFT AGAINST MEDICAL ADVICE
== END 2024-06-13 22:10 | disposition left against medical advice (07) ==
LOC: EC 19:39 → 3SCARD 21:43 → 6NMEDSUR 06-13 07:43
PROVIDERS: ADMIT Hospitalist; ATTEND Hospitalist
DX: L02.214 Cutaneous abscess of groin (principal); L03.311 Cellulitis of abdominal wall; E11.65 Type 2 diabetes mellitus with hyperglycemia; E78.1 Pure hyperglyceridemia; E87.20 Acidosis, unspecified; I10 Essential (primary) hypertension; K86.1 Other chronic pancreatitis; G89.29 Other chronic pain; M54.50 Low back pain, unspecified; K21.9 Gastro-esophageal reflux disease without esophagitis; Z87.891 Personal history of nicotine dependence; Z77.22 Contact with and (suspected) exposure to environmental tobacco smoke (acute) (chronic); Z53.29 Procedure and treatment not carried out because of patient's decision for other reasons; Z88.1 Allergy status to other antibiotic agents; Z79.4 Long term (current) use of insulin; Z79.84 Long term (current) use of oral hypoglycemic drugs; Z79.899 Other long term (current) drug therapy; Z86.14 Personal history of Methicillin resistant Staphylococcus aureus infection
CPT/HCPCS: 96361 ×2; 96366 ×2; 96365 ×2; 96375 ×2; 99284; 36415; 80053; 82150; 82009; 83605 ×2; 83690; 85025; 81001; 87040; 87070; 87205; G0378 ×3; J3370; J2405; J0696; J1885; J1836

== ENCOUNTER 2024-06-15 02:37 | Emergency (ER) | payer MEDICARE ==
[2024-06-15 02:54] VITALS: TEMP 98.7
--- NOTE | 2024-06-15 02:54 | ED ---
Recheck HPI - General Stated Complaint: Knee pain Time Seen by Provider: 06/15/24 02:39 Source: RN notes reviewed, old records reviewed Mode of arrival: ambulatory Limitations: no limitations - History of Present Illness Initial Comments: This is a 53-year-old female well-known to this ER coming in for pain chronic pain out of pain meds at home. Recent hospital admission for abdominal abscess she states that it is improving symptoms are improving currently taking antibiotics. Patient has no injury causing the back pain but the pain is in her lower back rating to both side MD Complaint: medication refill request Returns Today for: persistent/worsening pain related to initial visit Context: ran out of medication Treatments Prior to Arrival: Given Pain Meds on - Related Data Home Medications Medication Instructions Recorded Confirmed Atorvastatin [Lipitor] 80 mg PO HS 06/25/19 06/13/24 lisinopriL 40 mg PO DAILY 09/24/20 06/13/24 traZODone HCL 50 mg PO HS 01/11/21 06/13/24 Albuterol Inhaler [Ventolin Hfa 2 puff INHALATION RT-QID PRN 03/01/23 06/13/24 Inhaler] Insulin Glargine,Hum.rec.anlog 30 units SQ HS 07/30/23 06/13/24 [Lantus Solostar Pen] Ezetimibe [Zetia] 10 mg PO HS 02/17/24 06/13/24 Insulin Aspart (Niacinamide) 20 units SQ AC-TID 02/17/24 06/13/24 [Fiasp 100 Unit/ml Flextouch Pen] Nystatin 100,000 Unit/gm Powd 1 applic TOPICAL BID PRN 02/17/24 06/13/24 [Mycostatin Powder] Pantoprazole [Protonix] 40 mg PO DAILY 02/17/24 06/13/24 metFORMIN HCL 1,000 mg PO BID 06/13/24 06/13/24 Previous Rx's Medication Instructions Recorded amLODIPine [Norvasc] 10 mg PO DAILY #30 tab 03/11/23 hydrALAZINE HCL [Apresoline] 25 mg PO BID #60 tab 03/11/23 Ondansetron Odt [Zofran ODT] 4 mg PO Q8HR PRN #10 tab 03/29/24 Ibuprofen [Motrin] 600 mg PO Q8HR PRN 30 Days #30 tab 04/11/24 Famotidine [Pepcid] 20 mg PO DAILY #20 tablet 04/18/24 Ipratropium [place] 0.06%Nasal 2 spray EA NOSTRIL BID #15 ml 06/07/24 [Atrovent Nasal 0.06%] Ondansetron Odt [Zofran Odt] 4 mg PO Q8HR PRN #10 tab 06/19/24 Allergies Allergy/AdvReac Type Severity Reaction Status Date / Time levofloxacin [From Levaquin] Allergy Rash/Hives Verified 06/20/24 19:25 Review of Systems ROS Statement: Those systems with pertinent positive or pertinent negative responses have been documented in the HPI. ROS Other: All systems not noted in ROS Statement are negative. Past Medical History Past Medical History: Diabetes Mellitus, GERD/Reflux, Hyperlipidemia, Hypertension, Syncope Additional Past Medical History / Comment(s): Pt recently admitted to [facility] on 07/21/21 with uncontrolled IDDM and hyperkalemia. Other hx: Recurrent pancreatitis, hypertriglyceridemia, elevated lipase, IDDM type II, UTI, chronic low back pain, bulging discs, dental abscesses in past. History of Any Multi-Drug Resistant Organisms: MRSA Date of last positivie culture/infection: 03/01/23 MDRO Source:: Abdomen Past Surgical History: Tubal Ligation Additional Past Surgical History / Comment(s): Age 7 had VSD repair, tumor removal 03/2023 Past Anesthesia/Blood Transfusion Reactions: No Reported Reaction Past Psychological History: No Psychological Hx Reported Smoking Status: Former smoker, Second hand smoke exposure, Vaper Past Alcohol Use History: None Reported Past Drug Use History: None Reported - Past Family History Mother Family Medical History: No Reported History Additional Family Medical History / Comment(s): Mother was healthy. She is , pt cannot recall cause of . Father Family Medical History: Pneumonia Additional Family Medical History / Comment(s): Father at the age of 67yrs from pneumonia General Exam General appearance: alert, in no apparent distress Head exam: Present: atraumatic, normocephalic, normal inspection Eye exam: Present: normal appearance, PERRL, EOMI. Absent: scleral icterus, conjunctival injection, periorbital swelling ENT exam: Present: normal exam, mucous membranes moist Neck exam: Present: normal inspection. Absent: tenderness, meningismus, lymphadenopathy Respiratory exam: Present: normal lung sounds bilaterally. Absent: respiratory distress, wheezes, rales, rhonchi, stridor Cardiovascular Exam: Present: regular rate, normal rhythm, normal heart sounds. Absent: systolic murmur, diastolic murmur, rubs, gallop, clicks GI/Abdominal exam: Present: soft, normal bowel sounds. Absent: distended, tenderness, guarding, rebound, rigid Extremities exam: Present: normal inspection, full ROM, normal capillary refill. Absent: tenderness, pedal edema, joint swelling, calf tenderness Back exam: Present: normal inspection Neurological exam: Present: alert, oriented X3, CN II-XII intact Psychiatric exam: Present: normal affect, normal mood Skin exam: Present: warm, dry, intact, normal color. Absent: rash Course Vital Signs 06/15/24 06/15/24 02:45 03:28 Temperature 98.7 F Pulse Rate 76 98 Respiratory 20 17 Rate Blood Pressure 147/70 139/72 O2 Sat by Pulse 96 95 Oximetry - Reevaluation(s) Reevaluation #1: 06/15/24 02:53 Records reviewed Reevaluation #2: 06/15/24 02:53 Patient's pain is improved Reevaluation #3: 06/15/24 02:53 Patient informed of results and questions answered Reevaluation #4: Was pt. sent in by a medical professional or institution (, PA, GARLAND MACHINE OPERATOR, urgent care, hospital, or fpc...) When possible be specific @ -no Did you speak to anyone other than the patient for history (EMS, parent, family, police, friend...)? What history was obtained from this source @ -no Did you review nursing and triage notes (agree or disagree)? Why? @ -agree Are old charts reviewed (outside hosp., previous admission, EMS record, old EKG, old radiological studies, urgent care reports/EKG's, fpc records)? Report findings @ -yes Differential Diagnosis (chest pain, altered mental status, abdominal pain women, abdominal pain men, vaginal bleeding, weakness, fever, dyspnea, syncope, headache, dizziness, GI bleed, back pain, seizure, CVA, palpatations, mental health, musculoskeletal)? @ -prior EKG interpreted by me (3pts min.). @ -no X-rays interpreted by me (1pt min.). @ -no CT interpreted by me (1pt min.). @ -no U/S interpreted by me (1pt. min.). @ -no What testing was considered but not performed or refused? (CT, X-rays, U/S, labs)? Why? @ -none What meds were considered but not given or refused? Why? @ -none Did you discuss the management of the patient with other professionals (professionals i.e. Dr., PA, GARLAND MACHINE OPERATOR, lab, RT, psych nurse, social science manager, dry plasterer helper, teacher, loan service officer, telephonic case manager)? Give summary @ -no Was smoking cessation discussed for >3mins.? @ -no Was critical care preformed (if so, how long)? @ -no Were there social determinants of health that impacted care today? How? (Homelessness, low income, unemployed, alcoholism, drug addiction, transportation, low edu. Level, literacy, decrease access to med. care, group home, rehab)? @ -none Was there de-escalation of care discussed even if they declined (Discuss DNR or withdrawal of care, Hospice)? DNR status @ -no What co-morbidities impacted this encounter? (DM, HTN, Smoking, COPD, CAD, Cancer, CVA, ARF, Chemo, Hep., AIDS, mental health diagnosis, sleep apnea, morbid obesity)? @ -none Was patient admitted / discharged? Hospital course, mention meds given and route, prescriptions, significant lab abnormalities, going to OR and other pertinent info. @ - 53 Female with back pain today. Patient presents with pain in her lower mid back radiating to both sides. Pain controlled patient is able to ambulate she can be discharged home Discharged Undiagnosed new problem with uncertain prognosis? @ -no Drug Therapy requiring intensive monitoring for toxicity (Heparin, Nitro, Insulin, Cardizem)? @ -no Were any procedures done? @ -no Diagnosis/symptom? @ -Chronic pain Acute, or Chronic, or Acute on Chronic? @ -Acute Uncomplicated (without systemic symptoms) or Complicated (systemic symptoms)? @ -Complicated Side effects of treatment? @ -no Exacerbation, Progression, or Severe Exacerbation? @ -exacerbation Poses a threat to life or bodily function? How? (Chest pain, USA, MD, pneumonia, PE, COPD, DKA, ARF, appy, cholecystitis, CVA, Diverticulitis, Homicidal, Suicidal, threat to staff... and all critical care pts) @ -no Reevaluation #5: Differential Back Pain: Strain, zoster, cauda equina syndrome, epidural abscess, vertebral osteomyelitis, discitis, fracture, subluxation, disc herniation, DJD, spinal stenosis, dissection, AAA, pancreatitis, peptic ulcer disease, pyelonephritis, kidney stone, this is not meant to be an all-inclusive list. Medical Decision Making - Medical Decision Making 53 Female with back pain today. Patient presents with pain in her lower mid back radiating to both sides. Pain controlled patient is able to ambulate she can be discharged home Disposition Clinical Impression: Chronic pain, Pain, Back pain Disposition: HOME SELF-CARE Condition: Fair Instructions (If sedation given, give patient instructions): Back Pain (ED) Is patient prescribed a controlled substance at d/c from ED?: No Referrals: Ronel Manzano MD [Primary Care Provider] - 1-2 days Time of Disposition: 03:00
[2024-06-15] MEDS: HYDROmorphone 1 MG/ML 1 ML SYRINGE IM STA (03:01)
[2024-06-15] MEDS: diphenhydrAMINE 50 MG CAP PO STA (03:03)
[2024-06-15] MEDS: IBUPROFEN 600 MG TAB PO STA (03:03)
[2024-06-15] MEDS: ACET/COD 300 MG/30 MG STARTER PACK 6 TAB BTL PO STA (03:25)
[2024-06-15 03:29] VITALS: BP 139/72; PULSE 98; RESP 17
== END 2024-06-15 03:29 | disposition home or self-care (01) ==
LOC: EC 02:37
DX: G89.29 Other chronic pain (principal); Z91.148 Patient's other noncompliance with medication regimen for other reason; F17.290 Nicotine dependence, other tobacco product, uncomplicated; Z88.1 Allergy status to other antibiotic agents
CPT/HCPCS: 99283; 96372; J1171

== ENCOUNTER 2024-06-17 01:14 | Emergency (ER) | payer MEDICARE ==
[2024-06-17 01:24] VITALS: RESP 18
--- NOTE | 2024-06-17 01:58 | ED ---
Recheck HPI - General Chief Complaint: Recheck/Abnormal Lab/Rx Stated Complaint: Pain all over Time Seen by Provider: 06/17/24 01:20 Source: patient, RN notes reviewed, old records reviewed Mode of arrival: EMS - History of Present Illness Initial Comments: This is a 53 female well-known to this emergency department coming in today for evaluation of neck pain patient has history of neck pain history of chronic pain and chronic pain conditions. Patient has no travel history no sick contacts no change in medication patient states the neck pain which is worse throughout the course of the day MD Complaint: medication refill request Returns Today for: persistent/worsening pain related to initial visit Symptoms Since Prior Visit: worsening pain Associated Symptoms: none Treatments Prior to Arrival: Given Pain Meds on - Related Data Home Medications Medication Instructions Recorded Confirmed Atorvastatin [Lipitor] 80 mg PO HS 06/25/19 06/13/24 lisinopriL 40 mg PO DAILY 09/24/20 06/13/24 traZODone HCL 50 mg PO HS 01/11/21 06/13/24 Albuterol Inhaler [Ventolin Hfa 2 puff INHALATION RT-QID PRN 03/01/23 06/13/24 Inhaler] Insulin Glargine,Hum.rec.anlog 30 units SQ HS 07/30/23 06/13/24 [Lantus Solostar Pen] Ezetimibe [Zetia] 10 mg PO HS 02/17/24 06/13/24 Insulin Aspart (Niacinamide) 20 units SQ AC-TID 02/17/24 06/13/24 [Fiasp 100 Unit/ml Flextouch Pen] Nystatin 100,000 Unit/gm Powd 1 applic TOPICAL BID PRN 02/17/24 06/13/24 [Mycostatin Powder] Pantoprazole [Protonix] 40 mg PO DAILY 02/17/24 06/13/24 metFORMIN HCL 1,000 mg PO BID 06/13/24 06/13/24 Previous Rx's Medication Instructions Recorded amLODIPine [Norvasc] 10 mg PO DAILY #30 tab 03/11/23 hydrALAZINE HCL [Apresoline] 25 mg PO BID #60 tab 03/11/23 Ondansetron Odt [Zofran ODT] 4 mg PO Q8HR PRN #10 tab 03/29/24 Ibuprofen [Motrin] 600 mg PO Q8HR PRN 30 Days #30 tab 04/11/24 Famotidine [Pepcid] 20 mg PO DAILY #20 tablet 04/18/24 Ipratropium [place] 0.06%Nasal 2 spray EA NOSTRIL BID #15 ml 06/07/24 [Atrovent Nasal 0.06%] Allergies Allergy/AdvReac Type Severity Reaction Status Date / Time levofloxacin [From Levaquin] Allergy Rash/Hives Verified 06/17/24 01:24 Review of Systems ROS Statement: Those systems with pertinent positive or pertinent negative responses have been documented in the HPI. ROS Other: All systems not noted in ROS Statement are negative. Past Medical History Past Medical History: Diabetes Mellitus, GERD/Reflux, Hyperlipidemia, Hypertension, Syncope Additional Past Medical History / Comment(s): Pt recently admitted to [facility] on 07/21/21 with uncontrolled IDDM and hyperkalemia. Other hx: Recurrent pancreatitis, hypertriglyceridemia, elevated lipase, IDDM type II, UTI, chronic low back pain, bulging discs, dental abscesses in past. History of Any Multi-Drug Resistant Organisms: MRSA Date of last positivie culture/infection: 03/01/23 MDRO Source:: Abdomen Past Surgical History: Tubal Ligation Additional Past Surgical History / Comment(s): Age 7 had VSD repair, tumor removal 03/2023 Past Anesthesia/Blood Transfusion Reactions: No Reported Reaction Past Psychological History: No Psychological Hx Reported Smoking Status: Former smoker, Second hand smoke exposure, Vaper Past Alcohol Use History: None Reported Past Drug Use History: None Reported - Past Family History Mother Family Medical History: No Reported History Additional Family Medical History / Comment(s): Mother was healthy. She is , pt cannot recall cause of . Father Family Medical History: Pneumonia Additional Family Medical History / Comment(s): Father at the age of 67yrs from pneumonia General Exam General appearance: alert, in no apparent distress Head exam: Present: atraumatic, normocephalic, normal inspection Eye exam: Present: normal appearance, PERRL, EOMI. Absent: scleral icterus, conjunctival injection, periorbital swelling ENT exam: Present: normal exam, mucous membranes moist Neck exam: Present: normal inspection. Absent: tenderness, meningismus, lymphadenopathy Respiratory exam: Present: normal lung sounds bilaterally. Absent: respiratory distress, wheezes, rales, rhonchi, stridor Cardiovascular Exam: Present: regular rate, normal rhythm, normal heart sounds. Absent: systolic murmur, diastolic murmur, rubs, gallop, clicks GI/Abdominal exam: Present: soft, normal bowel sounds. Absent: distended, tenderness, guarding, rebound, rigid Extremities exam: Present: normal inspection, full ROM, normal capillary refill. Absent: tenderness, pedal edema, joint swelling, calf tenderness Back exam: Present: normal inspection Neurological exam: Present: alert, oriented X3, CN II-XII intact Psychiatric exam: Present: normal affect, normal mood Skin exam: Present: warm, dry, intact, normal color. Absent: rash Course Vital Signs 06/17/24 01:22 Temperature 98.1 F Pulse Rate 69 Respiratory 18 Rate Blood Pressure 183/100 O2 Sat by Pulse 97 Oximetry - Reevaluation(s) Reevaluation #1: 06/17/24 01:56 Medical record is reviewed Reevaluation #2: 06/17/24 01:56 Patient symptoms are unchanged Reevaluation #3: 06/17/24 01:56 Patient informed of results questions answered Reevaluation #4: Was pt. sent in by a medical professional or institution (, PA, VEST BASTER, urgent care, hospital, or detention...) When possible be specific @ -no Did you speak to anyone other than the patient for history (EMS, parent, family, police, friend...)? What history was obtained from this source @ -no Did you review nursing and triage notes (agree or disagree)? Why? @ -agree Are old charts reviewed (outside hosp., previous admission, EMS record, old EKG, old radiological studies, urgent care reports/EKG's, detention records)? Repo rt findings @ -yes Differential Diagnosis (chest pain, altered mental status, abdominal pain women, abdominal pain men, vaginal bleeding, weakness, fever, dyspnea, syncope, headache, dizziness, GI bleed, back pain, seizure, CVA, palpatations, mental health, musculoskeletal)? @ -prior EKG interpreted by me (3pts min.). @ -yes X-rays interpreted by me (1pt min.). @ -yes negative for acute disease CT interpreted by me (1pt min.). @ -no U/S interpreted by me (1pt. min.). @ -no What testing was considered but not performed or refused? (CT, X-rays, U/S, labs)? Why? @ -none What meds were considered but not given or refused? Why? @ -none Did you discuss the management of the patient with other professionals (professionals i.e. , PA, VEST BASTER, lab, RT, psych nurse, social and political studies professor, city driver, te acher, loan servicing officer, case investigator)? Give summary @ -no Was smoking cessation discussed for >3mins.? @ -no Was critical care preformed (if so, how long)? @ -no Were there social determinants of health that impacted care today? How? (Homelessness, low income, unemployed, alcoholism, drug addiction, transportation, low edu. Level, literacy, decrease access to med. care, senior care, rehab)? @ -none Was there de-escalation of care discussed even if they declined (Discuss DNR or withdrawal of care, Hospice)? DNR status @ -no What co-morbidities impacted this encounter? (DM, HTN, Smoking, COPD, CAD, Cancer, CVA, ARF, Chemo, Hep., AIDS, mental health diagnosis, sleep apnea, morbid obesity)? @ -none Was patient admitted / discharged? Hospital course, mention meds given and route, prescriptions, significant lab abnormalities, going to OR and other pertinent info. @ - Undiagnosed new problem with uncertain prognosis? @ -no Drug Therapy requiring intensive monitoring for toxicity (Heparin, Nitro, Insulin, Cardizem)? @ -no Were any procedures done? @ -no Diagnosis/symptom? @ - Acute, or Chronic, or Acute on Chronic? @ -Acute Uncomplicated (without systemic symptoms) or Complicated (systemic symptoms)? @ -Complicated Side effects of treatment? @ -no Exacerbation, Progression, or Severe Exacerbation? @ -exacerbation Poses a threat to life or bodily function? How? (Chest pain, [place], [place], pneumonia, PE, COPD, DKA, ARF, appy, cholecystitis, CVA, Diverticulitis, Homicidal, Suicidal, threat to staff... and all critical care pts) @ -yes Medical Decision Making - Medical Decision Making 53 female to ER for acute on chronic neck pain more chronic, no recent trauma pain is improved and she can be discharged home Disposition Clinical Impression: Neck pain Condition: Good Instructions (If sedation given, give patient instructions): Neck Pain (ED) Is patient prescribed a controlled substance at d/c from ED?: No Referrals: Ronel Manzano MD [Primary Care Provider] - 1-2 days Time of Disposition: 01:50
[2024-06-17] MEDS: HYDROmorphone 1 MG/ML 1 ML SYRINGE IM STA (02:15)
[2024-06-17] MEDS: ACET/COD 300 MG/30 MG STARTER PACK 6 TAB BTL PO STA (02:16)
[2024-06-17 02:17] VITALS: BP 185/88; PULSE 65; TEMP 97.1
== END 2024-06-17 02:20 ==
LOC: EC 01:14
DX: G89.29 Other chronic pain (principal); M54.2 Cervicalgia; F17.290 Nicotine dependence, other tobacco product, uncomplicated
CPT/HCPCS: 99283; 96372; J1171

== ENCOUNTER 2024-06-19 12:19 | Emergency (ER) | payer MEDICARE ==
--- NOTE | 2024-06-19 12:40 | ED ---
Nausea/Vomiting/Diarrhea HPI - General Source: patient, RN notes reviewed Mode of arrival: ambulatory Limitations: no limitations - History of Present Illness MD complaint: nausea, vomiting Onset/Timin -: hour(s) <Teo Mcgraw - Last Filed: 06/19/24 12:38> - General Source: patient, RN notes reviewed Limitations: no limitations <Servando Hernandez - Last Filed: 06/19/24 15:28> - General Stated complaint: pain Time Seen by Provider: 06/19/24 12:30 - History of Present Illness Initial comments: Quick note: This is a 53-year-old female present presenting with sick symptoms since last night. Endorses nausea/vomiting following dinner along with cough and sore throat. Denies recent sick contacts. Endorses use of Tylenol with minimal relief. Denies fever, chills, dizziness, chest pain, dyspnea, abdominal pain, diarrhea, constipation. (Teo Mcgraw) Patient is a 53-year-old female present to the emergency department with concerns for upper respiratory symptoms. Onset was yesterday. Patient did have nausea with 1 episode of vomiting. Patient is not nauseous now but would like a prescription for home. Patient also has been having mild cough and sore throat. Patient request pain medicine. (Servando Hernandez) - Related Data Home Medications Medication Instructions Recorded Confirmed Atorvastatin [Lipitor] 80 mg PO HS 06/25/19 06/13/24 lisinopriL 40 mg PO DAILY 09/24/20 06/13/24 traZODone HCL 50 mg PO HS 01/11/21 06/13/24 Albuterol Inhaler [Ventolin Hfa 2 puff INHALATION RT-QID PRN 03/01/23 06/13/24 Inhaler] Insulin Glargine,Hum.rec.anlog 30 units SQ HS 07/30/23 06/13/24 [Lantus Solostar Pen] Ezetimibe [Zetia] 10 mg PO HS 02/17/24 06/13/24 Insulin Aspart (Niacinamide) 20 units SQ AC-TID 02/17/24 06/13/24 [Fiasp 100 Unit/ml Flextouch Pen] Nystatin 100,000 Unit/gm Powd 1 applic TOPICAL BID PRN 02/17/24 06/13/24 [Mycostatin Powder] Pantoprazole [Protonix] 40 mg PO DAILY 02/17/24 06/13/24 metFORMIN HCL 1,000 mg PO BID 06/13/24 06/13/24 Previous Rx's Medication Instructions Recorded amLODIPine [Norvasc] 10 mg PO DAILY #30 tab 03/11/23 hydrALAZINE HCL [Apresoline] 25 mg PO BID #60 tab 03/11/23 Ondansetron Odt [Zofran ODT] 4 mg PO Q8HR PRN #10 tab 03/29/24 Ibuprofen [Motrin] 600 mg PO Q8HR PRN 30 Days #30 tab 04/11/24 Famotidine [Pepcid] 20 mg PO DAILY #20 tablet 04/18/24 Ipratropium [place] 0.06%Nasal 2 spray EA NOSTRIL BID #15 ml 06/07/24 [Atrovent Nasal 0.06%] Ondansetron Odt [Zofran Odt] 4 mg PO Q8HR PRN #10 tab 06/19/24 Allergies Allergy/AdvReac Type Severity Reaction Status Date / Time levofloxacin [From Levaquin] Allergy Rash/Hives Verified 06/19/24 12:52 Review of Systems ROS Other: All systems not noted in ROS Statement are negative. <Teo Mcgraw - Last Filed: 06/19/24 12:38> ROS Other: All systems not noted in ROS Statement are negative. Constitutional: Denies: fever ENT: Reports: throat pain, congestion Respiratory: Reports: cough. Denies: dyspnea Cardiovascular: Denies: chest pain Gastrointestinal: Reports: as per HPI. Denies: abdominal pain Musculoskeletal: Denies: back pain <Servando Hernandez - Last Filed: 06/19/24 15:28> ROS Statement: Those systems with pertinent positive or pertinent negative responses have been documented in the HPI. Past Medical History Past Medical History: Diabetes Mellitus, GERD/Reflux, Hyperlipidemia, Hypertension, Syncope Additional Past Medical History / Comment(s): Pt recently admitted to [facility] on 07/21/21 with uncontrolled IDDM and hyperkalemia. Other hx: Recurrent pancreatitis, hypertriglyceridemia, elevated lipase, IDDM type II, UTI, chronic low back pain, bulging discs, dental abscesses in past. History of Any Multi-Drug Resistant Organisms: MRSA Date of last positivie culture/infection: 03/01/23 MDRO Source:: Abdomen Past Surgical History: Tubal Ligation Additional Past Surgical History / Comment(s): Age 7 had VSD repair, tumor removal 03/2023 Past Anesthesia/Blood Transfusion Reactions: No Reported Reaction Past Psychological History: No Psychological Hx Reported Smoking Status: Former smoker, Second hand smoke exposure, Vaper Past Alcohol Use History: None Reported Past Drug Use History: None Reported - Past Family History Mother Family Medical History: No Reported History Additional Family Medical History / Comment(s): Mother was healthy. She is , pt cannot recall cause of . Father Family Medical History: Pneumonia Additional Family Medical History / Comment(s): Father at the age of 67yrs from pneumonia <Teo Mcgraw - Last Filed: 06/19/24 12:38> General Exam <Teo Mcgraw - Last Filed: 06/19/24 12:38> Limitations: no limitations General appearance: alert, in no apparent distress Head exam: Present: normocephalic Eye exam: Present: normal appearance ENT exam: Present: normal exam, normal oropharynx Neck exam: Present: normal inspection Respiratory exam: Present: normal lung sounds bilaterally Cardiovascular Exam: Present: regular rate, normal rhythm GI/Abdominal exam: Present: soft. Absent: tenderness Extremities exam: Present: normal inspection. Absent: pedal edema, calf tenderness Neurological exam: Present: alert Psychiatric exam: Present: normal affect, normal mood Skin exam: Present: normal color <Servando Hernandez - Last Filed: 06/19/24 15:28> - General Exam Comments Initial Comments: Visual Physical Exam Vital signs reviewed General: Well-appearing, nontoxic, no acute distress. Head: Normocephalic, atraumatic Eyes: PERRLA, EOMI ENT: Airway patent Chest: Nonlabored breathing Skin: No visual rash, normal skin tone Neuro: Alert and oriented 3 Musculoskeletal: No gross abnormalities (Teo Mcgraw) Course Vital Signs 06/19/24 12:49 Temperature 97.8 F Pulse Rate 72 Respiratory 18 Rate Blood Pressure 134/80 O2 Sat by Pulse 96 Oximetry Medical Decision Making <Teo Mcgraw - Last Filed: 06/19/24 12:38> <Servando Hernandez - Last Filed: 06/19/24 15:28> - Medical Decision Making I completed the quick note portion of this chart signed DOTTY Peraza (Teo Mcgraw) Was pt. sent in by a medical professional or institution (ROSALIE Flaherty, DANCING TEACHER, urgent care, hospital, or longterm...) When possible be specific @ -No Did you speak to anyone other than the patient for history (EMS, parent, family, police, friend...)? What history was obtained from this source @ -No Did you review nursing and triage notes (agree or disagree)? Why? @ -I reviewed and agree with nursing and triage notes Were old charts reviewed (outside hosp., previous admission, EMS record, old EKG, old radiological studies, urgent care reports/EKG's, longterm records)? Report findings @ -No old charts were reviewed Differential Diagnosis (chest pain, altered mental status, abdominal pain women, abdominal pain men, vaginal bleeding, weakness, fever, dyspnea, syncope, headache, dizziness, GI bleed, back pain, seizure, CVA, palpatations, mental health, musculoskeletal)? @ -Differential Fever: Pneumonia, viral URI, endocarditis, myocarditis, pericarditis, otitis, sinusitis, peritonsillar Abscess, retropharyngeal Abscess, epiglottitis, peritonitis, appendicitis, [place] cystitis, diverticulitis, hepatitis, colitis, UTI, PID, TOA, pyelonephritis, prostatitis, epididymitis, meningitis, encephalitis, pulmonary embolism, CVA, thyroid storm, pancreatitis, adrenal crisis, cavernous sinus thrombosis, this is not meant to be an all-inclusive list. EKG interpreted by me (3pts min.). @ -As above X-rays interpreted by me (1pt min.). @ -Chest x-ray shows no acute process CT interpreted by me (1pt min.). @ -None done U/S interpreted by me (1pt. min.). @ -None done What testing was considered but not performed or refused? (CT, X-rays, U/S, labs)? Why? @ -None What meds were considered but not given or refused? Why? @ -None Did you discuss the management of the patient with other professionals (professionals i.e. ROSALIE Flaherty, DANCING TEACHER, lab, RT, psych nurse, mental health social worker, contract law specialist, teacher, planned giving officer, window caser)? Give summary @ -No Was smoking cessation discussed for >3mins.? @ -No Was critical care preformed (if so, how long)? @ -No Were there social determinants of health that impacted care today? How? (Homelessness, low income, unemployed, alcoholism, drug addiction, transportation, low edu. Level, literacy, decrease access to med. care, [facility], rehab)? @ -No Was there de-escalation of care discussed even if they declined (Discuss DNR or withdrawal of care, Hospice)? DNR status @ -No What co-morbidities impacted this encounter? (DM, HTN, Smoking, COPD, CAD, Cancer, CVA, ARF, Chemo, Hep., AIDS, mental health diagnosis, sleep apnea, morbid obesity)? @ -None Was patient admitted / discharged? Hospital course, mention meds given and route, prescriptions, significant lab abnormalities, going to OR and other pertinent info. @ -Patient presents with 1 episode of vomiting and concerns for upper upper story symptoms. Evaluation unremarkable. Patient does look well. Patient will be discharged and recommended follow-up with your primary care physician. Undiagnosed new problem with uncertain prognosis? @ -No Drug Therapy requiring intensive monitoring for toxicity (Heparin, Nitro, Insulin, Cardizem)? @ -No Were any procedures done? @ -No Diagnosis/symptom? @ -Upper respiratory infection Acute, or Chronic, or Acute on Chronic? @ -Acute Uncomplicated (without systemic symptoms) or Complicated (systemic symptoms)? @ -Complicated with an episode of vomiting Side effects of treatment? @ -No Exacerbation, Progression, or Severe Exacerbation? @ -No Poses a threat to life or bodily function? How? (Chest pain, [place], [place], pneumonia, PE, COPD, DKA, ARF, appy, cholecystitis, CVA, Diverticulitis, Homicidal, Suicidal, threat to staff... and all critical care pts) @ -No (Servando Hernandez) - Lab Data Lab Results 06/19/24 06/19/24 Range/Units 12:59 12:59 Influenza Type A (PCR) Not Detected (Not Detectd) Influenza Type B (PCR) Not Detected (Not Detectd) RSV (PCR) Not Detected (Not Detectd) SARS-CoV-2 (PCR) Not Detected (Not Detectd) Group A Strep (PCR) NOT DETECTED (Not Detectd) Disposition <Teo Mcgraw - Last Filed: 06/19/24 12:38> Is patient prescribed a controlled substance at d/c from ED?: No Time of Disposition: 15:27 <Servando Hernandez - Last Filed: 06/19/24 15:28> Clinical Impression: Upper respiratory infection Disposition: HOME SELF-CARE Condition: Stable Instructions (If sedation given, give patient instructions): Acute Nausea and Vomiting (ED), Upper Respiratory Infection (ED) Additional Instructions: Prescription for nausea sent to your pharmacy. Please do follow-up with your primary care physician in the next day or 2 for recheck. Return for difficulty breathing, uncontrolled fevers, not tolerating oral intake, worsening symptoms or any other concerns. Prescriptions: Ondansetron Odt [Zofran Odt] 4 mg PO Q8HR PRN #10 tab PRN Reason: Nausea Referrals: Ronel Manzano MD [Primary Care Provider] - 1-2 days
[2024-06-19 12:53] VITALS: RESP 18; TEMP 97.8
[2024-06-19 13:57] LABS: Influenza A Not Detected (Not Detectd); Influenza B Not Detected (Not Detectd); RSV Not Detected (Not Detectd)
--- NOTE | 2024-06-19 14:56 | XR ---
EXAMINATION TYPE: XR chest 2V DATE OF EXAM: 06/19/2024 2:48 PM COMPARISON: Chest radiographs from 06/10/2024 CLINICAL INDICATION: Female, 53 years old with history of Cough; TECHNIQUE: XR chest 2V Frontal and lateral views of the chest. FINDINGS: Lungs/Pleura: There is no evidence of pleural effusion, focal consolidation, or pneumothorax. Pulmonary vascularity: Unremarkable. Heart/mediastinum: Cardiomediastinal silhouette is unremarkable. Musculoskeletal: No acute osseous pathology. IMPRESSION: No acute cardiopulmonary disease/process. [facility], , 06/19/2024 2:54 PM
[2024-06-19] MEDS: ACETAMINOPHEN TAB 500 MG TAB PO STA (15:42)
[2024-06-19 17:03] VITALS: BP 162/85; PULSE 70
== END 2024-06-19 17:03 | disposition home or self-care (01) ==
LOC: EC 12:19
DX: J06.9 Acute upper respiratory infection, unspecified (principal); Z88.1 Allergy status to other antibiotic agents; F17.290 Nicotine dependence, other tobacco product, uncomplicated
CPT/HCPCS: 71046; 87636; 87651; 99285

== ENCOUNTER 2024-06-20 19:13 | Emergency (ER) | payer MEDICARE ==
[2024-06-20 19:25] VITALS: BP 166/76; PULSE 81; RESP 18; TEMP 99
--- NOTE | 2024-06-20 19:43 | ED ---
Recheck HPI - General Chief Complaint: Recheck/Abnormal Lab/Rx Stated Complaint: flu-like symptoms Time Seen by Provider: 06/20/24 19:35 Source: patient, RN notes reviewed, old records reviewed Mode of arrival: EMS Limitations: no limitations - History of Present Illness Initial Comments: This is a 53 female presenting by EMS for evaluation regards to flulike symptoms has not been feeling well for fluids. Patient has multiple recent hospitalizations for similar condition neck pain back pain belly pain and multiple similar complaints MD Complaint: medication refill request -: days(s) Returns Today for: persistent/worsening pain related to initial visit Symptoms Since Prior Visit: worsening pain Context: ran out of medication Treatments Prior to Arrival: Given Pain Meds on - Related Data Home Medications Medication Instructions Recorded Confirmed Atorvastatin [Lipitor] 80 mg PO HS 06/25/19 06/13/24 lisinopriL 40 mg PO DAILY 09/24/20 06/13/24 traZODone HCL 50 mg PO HS 01/11/21 06/13/24 Albuterol Inhaler [Ventolin Hfa 2 puff INHALATION RT-QID PRN 03/01/23 06/13/24 Inhaler] Insulin Glargine,Hum.rec.anlog 30 units SQ HS 07/30/23 06/13/24 [Lantus Solostar Pen] Ezetimibe [Zetia] 10 mg PO HS 02/17/24 06/13/24 Insulin Aspart (Niacinamide) 20 units SQ AC-TID 02/17/24 06/13/24 [Fiasp 100 Unit/ml Flextouch Pen] Nystatin 100,000 Unit/gm Powd 1 applic TOPICAL BID PRN 02/17/24 06/13/24 [Mycostatin Powder] Pantoprazole [Protonix] 40 mg PO DAILY 02/17/24 06/13/24 metFORMIN HCL 1,000 mg PO BID 06/13/24 06/13/24 Previous Rx's Medication Instructions Recorded amLODIPine [Norvasc] 10 mg PO DAILY #30 tab 03/11/23 hydrALAZINE HCL [Apresoline] 25 mg PO BID #60 tab 03/11/23 Ondansetron Odt [Zofran ODT] 4 mg PO Q8HR PRN #10 tab 03/29/24 Ibuprofen [Motrin] 600 mg PO Q8HR PRN 30 Days #30 tab 04/11/24 Famotidine [Pepcid] 20 mg PO DAILY #20 tablet 04/18/24 Ipratropium [place] 0.06%Nasal 2 spray EA NOSTRIL BID #15 ml 06/07/24 [Atrovent Nasal 0.06%] Ondansetron Odt [Zofran Odt] 4 mg PO Q8HR PRN #10 tab 06/19/24 Allergies Allergy/AdvReac Type Severity Reaction Status Date / Time levofloxacin [From Levaquin] Allergy Rash/Hives Verified 06/20/24 19:25 Review of Systems ROS Statement: Those systems with pertinent positive or pertinent negative responses have been documented in the HPI. ROS Other: All systems not noted in ROS Statement are negative. Past Medical History Past Medical History: Diabetes Mellitus, GERD/Reflux, Hyperlipidemia, Hypertension, Syncope Additional Past Medical History / Comment(s): Pt recently admitted to [facility] on 07/21/21 with uncontrolled IDDM and hyperkalemia. Other hx: Recurrent pancreatitis, hypertriglyceridemia, elevated lipase, IDDM type II, UTI, chronic low back pain, bulging discs, dental abscesses in past. History of Any Multi-Drug Resistant Organisms: MRSA Date of last positivie culture/infection: 03/01/23 MDRO Source:: Abdomen Past Surgical History: Tubal Ligation Additional Past Surgical History / Comment(s): Age 7 had VSD repair, tumor removal 03/2023 Past Anesthesia/Blood Transfusion Reactions: No Reported Reaction Past Psychological History: No Psychological Hx Reported Smoking Status: Former smoker, Second hand smoke exposure, Vaper Past Alcohol Use History: None Reported Past Drug Use History: None Reported - Past Family History Mother Family Medical History: No Reported History Additional Family Medical History / Comment(s): Mother was healthy. She is , pt cannot recall cause of . Father Family Medical History: Pneumonia Additional Family Medical History / Comment(s): Father at the age of 67yrs from pneumonia General Exam Limitations: no limitations General appearance: alert, in no apparent distress Head exam: Present: atraumatic, normocephalic, normal inspection Eye exam: Present: normal appearance, PERRL, EOMI. Absent: scleral icterus, conjunctival injection, periorbital swelling ENT exam: Present: normal exam, mucous membranes moist Neck exam: Present: normal inspection. Absent: tenderness, meningismus, lymphadenopathy Respiratory exam: Present: normal lung sounds bilaterally. Absent: respiratory distress, wheezes, rales, rhonchi, stridor Cardiovascular Exam: Present: regular rate, normal rhythm, normal heart sounds. Absent: systolic murmur, diastolic murmur, rubs, gallop, clicks GI/Abdominal exam: Present: soft, normal bowel sounds. Absent: distended, tenderness, guarding, rebound, rigid Extremities exam: Present: normal inspection, full ROM, normal capillary refill. Absent: tenderness, pedal edema, joint swelling, calf tenderness Back exam: Present: normal inspection Neurological exam: Present: alert, oriented X3, CN II-XII intact Psychiatric exam: Present: normal affect, normal mood Skin exam: Present: warm, dry, intact, normal color. Absent: rash Course Vital Signs 06/20/24 19:24 Temperature 99 F Pulse Rate 81 Respiratory 18 Rate Blood Pressure 166/76 O2 Sat by Pulse 97 Oximetry - Reevaluation(s) Reevaluation #1: Medical records reviewed Multiple ER visits with similar complaint Reevaluation #2: Patient symptoms improved Reevaluation #3: Patient informed of results questions answered Reevaluation #4: Was pt. sent in by a medical professional or institution (, PA, DROP MAN, urgent care, hospital, or custodial...) When possible be specific @ -no Did you speak to anyone other than the patient for history (EMS, parent, family, police, friend...)? What history was obtained from this source @ -no Did you review nursing and triage notes (agree or disagree)? Why? @ -agree Are old charts reviewed (outside hosp., previous admission, EMS record, old EKG, old radiological studies, urgent care reports/EKG's, custodial records)? Report findings @ -yes Differential Diagnosis (chest pain, altered mental status, abdominal pain women, abdominal pain men, vaginal bleeding, weakness, fever, dyspnea, syncope, headache, dizziness, GI bleed, back pain, seizure, CVA, palpatations, mental health, musculoskeletal)? @ -prior EKG interpreted by me (3pts min.). @ -yes X-rays interpreted by me (1pt min.). @ -yes negative for acute disease CT interpreted by me (1pt min.). @ -no U/S interpreted by me (1pt. min.). @ -no What testing was considered but not performed or refused? (CT, X-rays, U/S, labs)? Why? @ -none What meds were considered but not given or refused? Why? @ -none Did you discuss the management of the patient with other professionals (professionals i.e. , PA, DROP MAN, lab, RT, psych nurse, social work supervisor, poultry boner, teacher, correctional probation officer, bottle caser)? Give summary @ -no Was smoking cessation discussed for >3mins.? @ -no Was critical care preformed (if so, how long)? @ -no Were there social determinants of health that impacted care today? How? (Homelessness, low income, unemployed, alcoholism, drug addiction, transportation, low edu. Level, literacy, decrease access to med. care, [facility], rehab)? @ -none Was there de-escalation of care discussed even if they declined (Discuss DNR or withdrawal of care, Hospice)? DNR status @ -no What co-morbidities impacted this encounter? (DM, HTN, Smoking, COPD, CAD, Cancer, CVA, ARF, Chemo, Hep., AIDS, mental health diagnosis, sleep apnea, morbid obesity)? @ -none Was patient admitted / discharged? Hospital course, mention meds given and route, prescriptions, significant lab abnormalities, going to OR and other pertinent info. @ - Undiagnosed new problem with uncertain prognosis? @ -no Drug Therapy requiring intensive monitoring for toxicity (Heparin, Nitro, Insulin, Cardizem)? @ -no Were any procedures done? @ -no Diagnosis/symptom? @ - Acute, or Chronic, or Acute on Chronic? @ -Acute Uncomplicated (without systemic symptoms) or Complicated (systemic symptoms)? @ -Complicated Side effects of treatment? @ -no Exacerbation, Progression, or Severe Exacerbation? @ -exacerbation Poses a threat to life or bodily function? How? (Chest pain, USA, OR, pneumonia, PE, COPD, DKA, ARF, appy, cholecystitis, CVA, Diverticulitis, Homicidal, Suicidal, threat to staff... and all critical care pts) @ -yes Medical Decision Making - Medical Decision Making 53 female nonspecific complaints coming in for recurrent evaluation, medication refill. Patient given symptom management can be discharged home Disposition Clinical Impression: Nausea & vomiting, Diarrhea Disposition: HOME SELF-CARE Condition: Good Instructions (If sedation given, give patient instructions): Acute Diarrhea (ED) Is patient prescribed a controlled substance at d/c from ED?: No Referrals: Ronel Manzano MD [Primary Care Provider] - 1-2 days Time of Disposition: 21:45
[2024-06-20] MEDS: HYDROmorphone 2 MG TAB PO ONE (23:27)
[2024-06-20] MEDS: ACET/COD 300 MG/30 MG STARTER PACK 6 TAB BTL PO STA (23:28)
[2024-06-20] MEDS: DIPHENOX-ATROP STARTER PACK 8 TAB BTL PO STA (23:28)
[2024-06-20] MEDS: ONDANSETRON 4 MG ODT STARTER PACK 2 TAB BTL PO STA (23:28)
[2024-06-20] MEDS: DIPHENOX-ATROP 2.5-0.025 MG 1 EACH TAB PO STA (23:28)
[2024-06-20] MEDS: ONDANSETRON ODT 4 MG TAB PO STA (23:28)
== END 2024-06-20 23:37 | disposition home or self-care (01) ==
LOC: EC 19:13
DX: R11.2 Nausea with vomiting, unspecified (principal); R19.7 Diarrhea, unspecified; F17.290 Nicotine dependence, other tobacco product, uncomplicated; Z88.1 Allergy status to other antibiotic agents
CPT/HCPCS: 99283; S0119

== ENCOUNTER 2024-06-23 20:14 | Emergency (ER) | payer MEDICARE, OTHER ==
[2024-06-23 20:20] VITALS: BP 172/81; PULSE 73; RESP 18; TEMP 99
--- NOTE | 2024-06-23 20:36 | ED ---
General Adult HPI - General Chief complaint: Back Pain/Injury Stated complaint: Pain all over Time Seen by Provider: 06/23/24 20:15 Source: patient Mode of arrival: EMS - History of Present Illness Initial comments: Dictation was produced using [employer] dictation software. please excuse any grammatical, word or spelling errors. Chief Complaint: 53-year-old female with multiple complaints History of Present Illness: Patient is a 53-year-old female she is well-known to our emergency department for multiple visitations for a myriad of complaints. Patient states she is here today for total body pain. States that she has a cough and back and abdominal and extremity pain. Patient denies any fever chills or night sweats. No obvious sick contacts. The ROS documented in this emergency department record has been reviewed and confirmed by me. Those systems with pertinent positive or negative responses have been documented in the HPI. All other systems are other negative and/or noncontributory. - Related Data Home Medications Medication Instructions Recorded Confirmed Atorvastatin [Lipitor] 80 mg PO HS 06/25/19 06/13/24 lisinopriL 40 mg PO DAILY 09/24/20 06/13/24 traZODone HCL 50 mg PO HS 01/11/21 06/13/24 Albuterol Inhaler [Ventolin Hfa 2 puff INHALATION RT-QID PRN 03/01/23 06/13/24 Inhaler] Insulin Glargine,Hum.rec.anlog 30 units SQ HS 07/30/23 06/13/24 [Lantus Solostar Pen] Ezetimibe [Zetia] 10 mg PO HS 02/17/24 06/13/24 Insulin Aspart (Niacinamide) 20 units SQ AC-TID 02/17/24 06/13/24 [Fiasp 100 Unit/ml Flextouch Pen] Nystatin 100,000 Unit/gm Powd 1 applic TOPICAL BID PRN 02/17/24 06/13/24 [Mycostatin Powder] Pantoprazole [Protonix] 40 mg PO DAILY 02/17/24 06/13/24 metFORMIN HCL 1,000 mg PO BID 06/13/24 06/13/24 Previous Rx's Medication Instructions Recorded amLODIPine [Norvasc] 10 mg PO DAILY #30 tab 03/11/23 hydrALAZINE HCL [Apresoline] 25 mg PO BID #60 tab 03/11/23 Ondansetron Odt [Zofran ODT] 4 mg PO Q8HR PRN #10 tab 03/29/24 Ibuprofen [Motrin] 600 mg PO Q8HR PRN 30 Days #30 tab 04/11/24 Famotidine [Pepcid] 20 mg PO DAILY #20 tablet 04/18/24 Ipratropium [place] 0.06%Nasal 2 spray EA NOSTRIL BID #15 ml 06/07/24 [Atrovent Nasal 0.06%] Ondansetron Odt [Zofran Odt] 4 mg PO Q8HR PRN #10 tab 06/19/24 Allergies Allergy/AdvReac Type Severity Reaction Status Date / Time levofloxacin [From Levaquin] Allergy Rash/Hives Verified 06/23/24 20:19 Review of Systems ROS Statement: Those systems with pertinent positive or pertinent negative responses have been documented in the HPI. ROS Other: All systems not noted in ROS Statement are negative. Past Medical History Past Medical History: Diabetes Mellitus, GERD/Reflux, Hyperlipidemia, Hypertension, Syncope Additional Past Medical History / Comment(s): Pt recently admitted to [facility] on 07/21/21 with uncontrolled IDDM and hyperkalemia. Other hx: Recurrent pancreatitis, hypertriglyceridemia, elevated lipase, IDDM type II, UTI, chronic low back pain, bulging discs, dental abscesses in past. History of Any Multi-Drug Resistant Organisms: MRSA Date of last positivie culture/infection: 03/01/23 MDRO Source:: Abdomen Past Surgical History: Tubal Ligation Additional Past Surgical History / Comment(s): Age 7 had VSD repair, tumor removal 03/2023 Past Anesthesia/Blood Transfusion Reactions: No Reported Reaction Past Psychological History: No Psychological Hx Reported Smoking Status: Former smoker, Second hand smoke exposure, Vaper Past Alcohol Use History: None Reported Past Drug Use History: None Reported - Past Family History Mother Family Medical History: No Reported History Additional Family Medical History / Comment(s): Mother was healthy. She is , pt cannot recall cause of . Father Family Medical History: Pneumonia Additional Family Medical History / Comment(s): Father at the age of 67yrs from pneumonia General Exam - General Exam Comments Initial Comments: PHYSICAL EXAM: General Impression: Alert and oriented x3, not in acute distress HEENT: Normocephalic atraumatic, extra-ocular movements intact, pupils equal and reactive to light bilaterally, mucous membranes moist. Cardiovascular: Heart regular rate and rhythm Chest: Able to complete full sentences, no retractions, no tachypnea Abdomen: abdomen soft, non-tender, non-distended, no organomegaly Musculoskeletal: Pulses present and equal in all extremities, no peripheral edema Motor: no focal deficits noted Neurological: CN II-XII grossly intact, no focal motor or sensory deficits noted Skin: Intact with no visualized rashes Psych: Normal affect and mood Course Vital Signs 06/23/24 20:15 Temperature 99.0 F Pulse Rate 73 Respiratory 18 Rate Blood Pressure 172/81 O2 Sat by Pulse 97 Oximetry Medical Decision Making - Medical Decision Making Was pt. sent in by a medical professional or institution (, PA, SOCIETY EDITOR, urgent care, hospital, or [facility]...) When possible be specific @ -No Did you speak to anyone other than the patient for history (EMS, parent, family, police, friend...)? What history was obtained from this source @ -No Did you review nursing and triage notes (agree or disagree)? Why? @ -I reviewed and agree with nursing and triage notes Were old charts reviewed (outside hosp., previous admission, EMS record, old EKG, old radiological studies, urgent care reports/EKG's, [facility] records)? Report findings @ -No old charts were reviewed Differential Diagnosis (chest pain, altered mental status, abdominal pain women, abdominal pain men, vaginal bleeding, musculoskeletal, weakness, fever, dyspnea, syncope, headache, dizziness, GI bleed, back pain, seizure, CVA, palpatations, mental health)? @ -Differential Weakness: Hypoglycemia, shock, sepsis, hyponatremia, anemia, infection, NM, ETOH, adverse medicine reaction, overdose, stroke, this is not meant to be an all-inclusive list. EKG interpreted by me (3pts min.). @ -None done X-rays interpreted by me (1pt min.). @ -None done CT interpreted by me (1pt min.). @ -None done U/S interpreted by me (1pt. min.). @ -None done What testing was considered but not performed or refused? (CT, X-rays, U/S, labs)? Why? @ -None What meds were considered but not given or refused? Why? @ -None Was smoking cessation discussed for >3mins.? @ -No Were there social determinants of health that impacted care today? How? (Home lessness, low income, unemployed, alcoholism, drug addiction, transportation, low edu. Level, literacy, decrease access to med. care, longterm, rehab)? @ -No Was there de-escalation of care discussed even if they declined (Discuss DNR or withdrawal of care, Hospice)? DNR status @ -No What co-morbidities impacted this encounter? (DM, HTN, Smoking, COPD, CAD, Cancer, CVA, ARF, Chemo, Hep., AIDS, mental health diagnosis, sleep apnea, morbid obesity)? @ -None Was patient admitted / discharged? Hospital course, mention meds given and route, prescriptions, significant lab abnormalities, going to OR and other pertinent info. @ -53-year-old female well-known to emergency department for frequent visitations for a myriad of complaints. Presents to the ER today for cough,, total body pain abdominal pain and extremity pain. Patient physical examination is unremarkable. Vital signs upon arrival are within acceptable limits. Viral testing is negative. Patient discharged. Patient symptoms likely viral in nature. Patient has no high risk features Did you discuss the management of the patient with other professionals (professionals i.e. , PA, SOCIETY EDITOR, lab, RT, psych nurse, secondary social studies teacher, director of labor and delivery, teacher, special forces warrant officer, case mgr)? Give summary @ -No Was critical care preformed (if so, how long)? @ -No Undiagnosed new problem with uncertain prognosis? @ -No Drug Therapy requiring intensive monitoring for toxicity (Heparin, Nitro, Insulin, Cardizem)? @ -No Were any procedures done? @ -No Diagnosis/symptom? Acute, or Chronic, or Acute on Chronic? Uncomplicated (without systemic symptoms) or Complicated (systemic symptoms)? @ -Viral URI Side effects of treatment? @ -No Exacerbation, Progression, or Severe Exacerbation? @ -No Poses a threat to life or bodily function? How? (Chest pain, USA, NM, pneumonia, PE, COPD, DKA, ARF, appy, cholecystitis, CVA, Diverticulitis, Homicidal, Suicidal, threat to staff... and all critical care pts) @ -No - Lab Data Lab Results 03/18/25 Range/Units 20:38 Influenza Type A (PCR) Not Detected (Not Detectd) Influenza Type B (PCR) Not Detected (Not Detectd) RSV (PCR) Not Detected (Not Detectd) SARS-CoV-2 (PCR) Not Detected (Not Detectd) Disposition Clinical Impression: Viral URI Disposition: HOME SELF-CARE Condition: Good Instructions (If sedation given, give patient instructions): Ibuprofen (By mouth) Is patient prescribed a controlled substance at d/c from ED?: No Referrals: Ronel Manzano MD [Primary Care Provider] - 1-2 days Time of Disposition: 21:32
[2024-06-23 21:22] LABS: Influenza A Not Detected (Not Detectd); Influenza B Not Detected (Not Detectd); RSV Not Detected (Not Detectd)
== END 2024-06-23 22:28 | disposition home or self-care (01) ==
LOC: EC 20:14
DX: J06.9 Acute upper respiratory infection, unspecified (principal); F17.290 Nicotine dependence, other tobacco product, uncomplicated; Z11.52 Encounter for screening for COVID-19; Z88.1 Allergy status to other antibiotic agents
CPT/HCPCS: 87636; 99284

== ENCOUNTER 2024-06-24 22:08 | Emergency (ER) | payer MEDICARE, OTHER ==
[2024-06-24 22:14] VITALS: RESP 16; TEMP 99.4
--- NOTE | 2024-06-24 22:50 | ED ---
General Adult HPI - General Chief complaint: Nausea/Vomiting/Diarrhea Stated complaint: NVD Time Seen by Provider: 06/24/24 22:14 Source: patient, EMS, RN notes reviewed Mode of arrival: EMS Limitations: no limitations - History of Present Illness Initial comments: 33-year-old female presents to the emergency department for evaluation of sore throat, cough, body aches. She was evaluated here recently for similar symptoms. Tested negative for COVID flu RSV. - Related Data Home Medications Medication Instructions Recorded Confirmed Atorvastatin [Lipitor] 80 mg PO HS 06/25/19 06/13/24 lisinopriL 40 mg PO DAILY 09/24/20 06/13/24 traZODone HCL 50 mg PO HS 01/11/21 06/13/24 Albuterol Inhaler [Ventolin Hfa 2 puff INHALATION RT-QID PRN 03/01/23 06/13/24 Inhaler] Insulin Glargine,Hum.rec.anlog 30 units SQ HS 07/30/23 06/13/24 [Lantus Solostar Pen] Ezetimibe [Zetia] 10 mg PO HS 02/17/24 06/13/24 Insulin Aspart (Niacinamide) 20 units SQ AC-TID 02/17/24 06/13/24 [Fiasp 100 Unit/ml Flextouch Pen] Nystatin 100,000 Unit/gm Powd 1 applic TOPICAL BID PRN 02/17/24 06/13/24 [Mycostatin Powder] Pantoprazole [Protonix] 40 mg PO DAILY 02/17/24 06/13/24 metFORMIN HCL 1,000 mg PO BID 06/13/24 06/13/24 Previous Rx's Medication Instructions Recorded amLODIPine [Norvasc] 10 mg PO DAILY #30 tab 03/11/23 hydrALAZINE HCL [Apresoline] 25 mg PO BID #60 tab 03/11/23 Ondansetron Odt [Zofran ODT] 4 mg PO Q8HR PRN #10 tab 03/29/24 Ibuprofen [Motrin] 600 mg PO Q8HR PRN 30 Days #30 tab 04/11/24 Famotidine [Pepcid] 20 mg PO DAILY #20 tablet 04/18/24 Ipratropium [place] 0.06%Nasal 2 spray EA NOSTRIL BID #15 ml 06/07/24 [Atrovent Nasal 0.06%] Ondansetron Odt [Zofran Odt] 4 mg PO Q8HR PRN #10 tab 06/19/24 Allergies Allergy/AdvReac Type Severity Reaction Status Date / Time levofloxacin [From Levaquin] Allergy Rash/Hives Verified 06/23/24 20:19 Review of Systems ROS Statement: Those systems with pertinent positive or pertinent negative responses have been documented in the HPI. ROS Other: All systems not noted in ROS Statement are negative. Past Medical History Past Medical History: Diabetes Mellitus, GERD/Reflux, Hyperlipidemia, Hypertension, Syncope Additional Past Medical History / Comment(s): Pt recently admitted to [facility] on 07/21/21 with uncontrolled IDDM and hyperkalemia. Other hx: Recurrent pancreatitis, hypertriglyceridemia, elevated lipase, IDDM type II, UTI, chronic low back pain, bulging discs, dental abscesses in past. History of Any Multi-Drug Resistant Organisms: MRSA Date of last positivie culture/infection: 03/01/23 MDRO Source:: Abdomen Past Surgical History: Tubal Ligation Additional Past Surgical History / Comment(s): Age 7 had VSD repair, tumor removal 03/2023 Past Anesthesia/Blood Transfusion Reactions: No Reported Reaction Past Psychological History: No Psychological Hx Reported Smoking Status: Former smoker, Second hand smoke exposure, Vaper Past Alcohol Use History: None Reported Past Drug Use History: None Reported - Past Family History Mother Family Medical History: No Reported History Additional Family Medical History / Comment(s): Mother was healthy. She is , pt cannot recall cause of . Father Family Medical History: Pneumonia Additional Family Medical History / Comment(s): Father at the age of 67yrs from pneumonia General Exam Limitations: no limitations General appearance: alert, in no apparent distress Head exam: Present: atraumatic, normocephalic, normal inspection Eye exam: Present: normal appearance, PERRL, EOMI. Absent: scleral icterus, conjunctival injection, periorbital swelling ENT exam: Present: normal exam, mucous membranes moist Neck exam: Present: normal inspection. Absent: tenderness, meningismus, lymphadenopathy Respiratory exam: Present: normal lung sounds bilaterally. Absent: respiratory distress, wheezes, rales, rhonchi, stridor Cardiovascular Exam: Present: regular rate, normal rhythm, normal heart sounds. Absent: systolic murmur, diastolic murmur, rubs, gallop, clicks Extremities exam: Present: normal inspection, full ROM, normal capillary refill. Absent: tenderness, pedal edema, joint swelling, calf tenderness Neurological exam: Present: alert, oriented X3 Psychiatric exam: Present: normal affect, normal mood Skin exam: Present: warm, dry, intact, normal color. Absent: rash Course Vital Signs 06/24/24 22:12 Temperature 99.4 F Pulse Rate 82 Respiratory 16 Rate Blood Pressure 144/87 O2 Sat by Pulse 96 Oximetry Medical Decision Making - Medical Decision Making Was pt. sent in by a medical professional or institution ([facility]ALIE Flaherty, APPLIQUE SEWER, urgent care, hospital, or [place] health care facility...) When possible be specific @ -[No] Did you speak to anyone other than the patient for history (EMS, parent, family, police, friend...)? What history was obtained from this source @ -[No] Did you review nursing and triage notes (agree or disagree)? Why? @ -[I reviewed and agree with nursing and triage notes] Were old charts reviewed (outside hosp., previous admission, EMS record, old EKG, old radiological studies, urgent care reports/EKG's, [place] health care facility records)? Report findings @ -[No old charts were reviewed] Differential Diagnosis (chest pain, altered mental status, abdominal pain women, abdominal pain men, vaginal bleeding, weakness, fever, dyspnea, syncope, headache, dizziness, GI bleed, back pain, seizure, CVA, palpatations, mental health, musculoskeletal)? @ -[not applicable] EKG interpreted by me (3pts min.). @ -[As above] X-rays interpreted by me (1pt min.). @ -[None done] CT interpreted by me (1pt min.). @ -[None done] U/S interpreted by me (1pt. min.). @ -[None done] What testing was considered but not performed or refused? (CT, X-rays, U/S, labs)? Why? @ -[None] What meds were considered but not given or refused? Why? @ -[None] Did you discuss the management of the patient with other professionals (professionals i.e. , ROSALIE, APPLIQUE SEWER, lab, RT, psych nurse, social work specialist, probate lawyer, teacher, staff command and control officer, caseworker)? Give summary @ -[No] Was smoking cessation discussed for >3mins.? @ -[No] Was critical care preformed (if so, how long)? @ -[No] Were there social determinants of health that impacted care today? How? (Homelessness, low income, unemployed, alcoholism, drug addiction, transportation, low edu. Level, literacy, decrease access to med. care, skilled nursing, rehab)? @ -[No] Was there de-escalation of care discussed even if they declined (Discuss DNR or withdrawal of care, Hospice)? DNR status @ -[No] What co-morbidities impacted this encounter? (DM, HTN, Smoking, COPD, CAD, Cancer, CVA, ARF, Chemo, Hep., AIDS, mental health diagnosis, sleep apnea, morbid obesity)? @ -[None] Was patient admitted / discharged? Hospital course, mention meds given and route, prescriptions, significant lab abnormalities, going to OR and other pertinent info. @ -[hospital course] Undiagnosed new problem with uncertain prognosis? @ -[No] Drug Therapy requiring intensive monitoring for toxicity (Heparin, Nitro, Insulin, Cardizem)? @ -[No] Were any procedures done? @ -[No] Diagnosis/symptom? @ -[default] Acute, or Chronic, or Acute on Chronic? @ -[default] Uncomplicated (without systemic symptoms) or Complicated (systemic symptoms)? @ -[default] Side effects of treatment? @ -[No] Exacerbation, Progression, or Severe Exacerbation? @ -[No] Poses a threat to life or bodily function? How? (Chest pain, [place], [place], pneumonia, PE, COPD, DKA, ARF, appy, cholecystitis, CVA, Diverticulitis, Homicidal, Mayte cidal, threat to staff... and all critical care pts) @ -[No] Disposition Clinical Impression: GERD (gastroesophageal reflux disease) Disposition: HOME SELF-CARE Condition: Stable Instructions (If sedation given, give patient instructions): GERD (Gastroesophageal Reflux Disease) (ED) Additional Instructions: Please follow up with your primary care provider. Return to the emergency department for new or worsening symptoms. Is patient prescribed a controlled substance at d/c from ED?: No Referrals: Ronel Manzano MD [Primary Care Provider] - 1-2 days
[2024-06-24] MEDS: Acetaminophen-Codeine 300-30mg TAB PO STA (23:08)
[2024-06-24] MEDS: LIDOCAINE VISCOUS 2% 15 ML CUP PO ONE (23:09)
[2024-06-24] MEDS: MAG HYDROX/AL HYDROX/SIMETH 30 ML CUP PO STA (23:09)
[2024-06-25 00:07] VITALS: BP 136/90; PULSE 74
== END 2024-06-25 00:06 | disposition home or self-care (01) ==
LOC: EC 22:08
DX: K21.9 Gastro-esophageal reflux disease without esophagitis (principal); F17.290 Nicotine dependence, other tobacco product, uncomplicated; Z88.1 Allergy status to other antibiotic agents
CPT/HCPCS: 87070; 99284

== ENCOUNTER 2024-06-26 18:22 | Emergency (ER) | payer MEDICARE ==
--- NOTE | 2024-06-26 18:44 | ED ---
General Adult HPI - General Chief complaint: Recheck/Abnormal Lab/Rx Stated complaint: Generalized pain,cough Time Seen by Provider: 06/26/24 18:30 Source: patient Mode of arrival: ambulatory Limitations: no limitations - History of Present Illness Initial comments: Dictation was produced using [employer] dictation software. please excuse any grammatical, word or spelling errors. Chief Complaint: 53-year-old female well-known to the emergency department for several visitations for a myriad of complaints. Presents to the ER for sore throat, difficulty sleeping and cough History of Present Illness: 53-year-old female well-known to emergency department presents to the emergency department for 2 days of cough, sore throat and difficulty sleeping. Patient well-known to emergency department. Denies any fever, chills or night sweats. Denies any chest pain. States that her cough is nonproductive. The ROS documented in this emergency department record has been reviewed and confirmed by me. Those systems with pertinent positive or negative responses have been documented in the HPI. All other systems are other negative and/or noncontributory. - Related Data Home Medications Medication Instructions Recorded Confirmed Atorvastatin [Lipitor] 80 mg PO HS 06/25/19 06/13/24 lisinopriL 40 mg PO DAILY 09/24/20 06/13/24 traZODone HCL 50 mg PO HS 01/11/21 06/13/24 Albuterol Inhaler [Ventolin Hfa 2 puff INHALATION RT-QID PRN 03/01/23 06/13/24 Inhaler] Insulin Glargine,Hum.rec.anlog 30 units SQ HS 07/30/23 06/13/24 [Lantus Solostar Pen] Ezetimibe [Zetia] 10 mg PO HS 02/17/24 06/13/24 Insulin Aspart (Niacinamide) 20 units SQ AC-TID 02/17/24 06/13/24 [Fiasp 100 Unit/ml Flextouch Pen] Nystatin 100,000 Unit/gm Powd 1 applic TOPICAL BID PRN 02/17/24 06/13/24 [Mycostatin Powder] Pantoprazole [Protonix] 40 mg PO DAILY 02/17/24 06/13/24 metFORMIN HCL 1,000 mg PO BID 06/13/24 06/13/24 Previous Rx's Medication Instructions Recorded amLODIPine [Norvasc] 10 mg PO DAILY #30 tab 03/11/23 hydrALAZINE HCL [Apresoline] 25 mg PO BID #60 tab 03/11/23 Ondansetron Odt [Zofran ODT] 4 mg PO Q8HR PRN #10 tab 03/29/24 Ibuprofen [Motrin] 600 mg PO Q8HR PRN 30 Days #30 tab 04/11/24 Famotidine [Pepcid] 20 mg PO DAILY #20 tablet 04/18/24 Ipratropium [place] 0.06%Nasal 2 spray EA NOSTRIL BID #15 ml 06/07/24 [Atrovent Nasal 0.06%] Ondansetron Odt [Zofran Odt] 4 mg PO Q8HR PRN #10 tab 06/19/24 Allergies Allergy/AdvReac Type Severity Reaction Status Date / Time levofloxacin [From Levaquin] Allergy Rash/Hives Verified 06/23/24 20:19 Review of Systems ROS Statement: Those systems with pertinent positive or pertinent negative responses have been documented in the HPI. ROS Other: All systems not noted in ROS Statement are negative. Past Medical History Past Medical History: Diabetes Mellitus, GERD/Reflux, Hyperlipidemia, Hypertension, Syncope Additional Past Medical History / Comment(s): Pt recently admitted to [facility] on 07/21/21 with uncontrolled IDDM and hyperkalemia. Other hx: Recurrent pancreatitis, hypertriglyceridemia, elevated lipase, IDDM type II, UTI, chronic low back pain, bulging discs, dental abscesses in past. History of Any Multi-Drug Resistant Organisms: MRSA Date of last positivie culture/infection: 03/01/23 MDRO Source:: Abdomen Past Surgical History: Tubal Ligation Additional Past Surgical History / Comment(s): Age 7 had VSD repair, tumor removal 03/2023 Past Anesthesia/Blood Transfusion Reactions: No Reported Reaction Past Psychological History: No Psychological Hx Reported Smoking Status: Former smoker, Second hand smoke exposure, Vaper Past Alcohol Use History: None Reported Past Drug Use History: None Reported - Past Family History Mother Family Medical History: No Reported History Additional Family Medical History / Comment(s): Mother was healthy. She is , pt cannot recall cause of . Father Family Medical History: Pneumonia Additional Family Medical History / Comment(s): Father at the age of 67yrs from pneumonia General Exam - General Exam Comments Initial Comments: PHYSICAL EXAM: General Impression: Alert and oriented x3, not in acute distress HEENT: Normocephalic atraumatic, extra-ocular movements intact, pupils equal and reactive to light bilaterally, mucous membranes moist. Cardiovascular: Heart regular rate and rhythm Chest: Able to complete full sentences, no retractions, no tachypnea Abdomen: abdomen soft, non-tender, non-distended, no organomegaly Musculoskeletal: Pulses present and equal in all extremities, no peripheral edema Motor: no focal deficits noted Neurological: CN II-XII grossly intact, no focal motor or sensory deficits noted Skin: Intact with no visualized rashes Psych: Normal affect and mood Limitations: no limitations Course Vital Signs 06/26/24 18:25 Temperature 98.7 F Pulse Rate 84 Respiratory 18 Rate Blood Pressure 128/72 O2 Sat by Pulse 97 Oximetry Medical Decision Making - Medical Decision Making Was pt. sent in by a medical professional or institution (, PA, SPECIAL EDUCATION ASSISTANT, urgent care, hospital, or half-way...) When possible be specific @ -No Did you speak to anyone other than the patient for history (EMS, parent, family, police, friend...)? What history was obtained from this source @ -No Did you review nursing and triage notes (agree or disagree)? Why? @ -I reviewed and agree with nursing and triage notes Were old charts reviewed (outside hosp., previous admission, EMS record, old EKG, old radiological studies, urgent care reports/EKG's, half-way records)? Report findings @ -No old charts were reviewed Differential Diagnosis (chest pain, altered mental status, abdominal pain women, abdominal pain men, vaginal bleeding, musculoskeletal, weakness, fever, dyspnea, syncope, headache, dizziness, GI bleed, back pain, seizure, CVA, palpatations, mental health)? @ -Differential Dyspnea: Coronary syndrome, arrhythmia, tamponade, asthma, COPD, pulmonary embolism, pneumonia, pneumothorax, pulmonary effusion, anaphylaxis, diabetic ketoacidosis, flailed chest, pulmonary contusion, diaphragmatic rupture, anemia, n euromuscular, this is not meant to be an all-inclusive list. EKG interpreted by me (3pts min.). @ -None done X-rays interpreted by me (1pt min.). @ -Chest x-ray is nonacute CT interpreted by me (1pt min.). @ -None done U/S interpreted by me (1pt. min.). @ -None done What testing was considered but not performed or refused? (CT, X-rays, U/S, labs)? Why? @ -None What meds were considered but not given or refused? Why? @ -None Was smoking cessation discussed for >3mins.? @ -No Were there social determinants of health that impacted care today? How? (Homelessness, low income, unemployed, alcoholism, drug addiction, transportation, low edu. Level, literacy, decrease access to med. care, fpc, rehab)? @ -No Was there de-escalation of care discussed even if they declined (Discuss DNR or withdrawal of care, Hospice)? DNR status @ -No What co-morbidities impacted this encounter? (DM, HTN, Smoking, COPD, CAD, Cancer, CVA, ARF, Chemo, Hep., AIDS, mental health diagnosis, sleep apnea, mo rbid obesity)? @ -None Was patient admitted / discharged? Hospital course, mention meds given and route, prescriptions, significant lab abnormalities, going to OR and other pertinent info. @ -53-year-old female presents with viral URI. Vital signs stable. Recent viral swabs are negative. Chest x-ray nonacute. Strep test is negative. Patient discharged Did you discuss the management of the patient with other professionals (professionals i.e. , PA, SPECIAL EDUCATION ASSISTANT, lab, RT, psych nurse, nephrology social worker, crocheter, teacher, fire officer, caseworker protective services)? Give summary @ -No Was critical care preformed (if so, how long)? @ -No Undiagnosed new problem with uncertain prognosis? @ -No Drug Therapy requiring intensive monitoring for toxicity (Heparin, Nitro, Insulin, Cardizem)? @ -No Were any procedures done? @ -No Diagnosis/symptom? Acute, or Chronic, or Acute on Chronic? Uncomplicated (without systemic symptoms) or Complicated (systemic symptoms)? @ -Viral URI Side effects of treatment? @ -No Exacerbation, Progression, or Severe Exacerbation? @ -No Poses a threat to life or bodily function? How? (Chest pain, [place], [place], pneumonia, PE, COPD, DKA, ARF, appy, cholecystitis, CVA, Diverticulitis, Homicidal, Suicidal, threat to staff... and all critical care pts) @ -No - Lab Data Lab Results 06/26/24 Range/Units 19:09 Group A Strep (PCR) NOT DETECTED (Not Detectd) Disposition Clinical Impression: Viral URI Disposition: HOME SELF-CARE Condition: Good Instructions (If sedation given, give patient instructions): Pharyngitis (ED) Is patient prescribed a controlled substance at d/c from ED?: No Referrals: Ronel Manzano MD [Primary Care Provider] - 1-2 days Time of Disposition: 21:33
--- NOTE | 2024-06-26 19:16 | XR ---
EXAMINATION TYPE: XR chest 2V DATE OF EXAM: 06/26/2024 7:11 PM COMPARISON: Multiple radiographs, with the most recent on 06/19/2024. TECHNIQUE: XR chest 2V Frontal and lateral views of the chest. CLINICAL INDICATION:Female, 53 years old with history of cough; FINDINGS: Lungs/Pleura: There is no evidence of pleural effusion, focal consolidation, or pneumothorax. Pulmonary vascularity: Unremarkable. Heart/mediastinum: Cardiomediastinal silhouette is unremarkable. Musculoskeletal: No acute osseous pathology. Midline sternotomy wires are noted and stable. IMPRESSION: No acute cardiopulmonary disease/process. [facility], , 06/26/2024 7:14 PM
[2024-06-26] MEDS: ACET/COD 300 MG/30 MG STARTER PACK 6 TAB BTL PO STA (21:59)
[2024-06-26 22:10] VITALS: BP 127/85; PULSE 82; RESP 20; TEMP 98.9
== END 2024-06-26 22:02 | disposition home or self-care (01) ==
LOC: EC 18:22
DX: J06.9 Acute upper respiratory infection, unspecified (principal); B97.89 Other viral agents as the cause of diseases classified elsewhere; F17.290 Nicotine dependence, other tobacco product, uncomplicated; Z88.1 Allergy status to other antibiotic agents
CPT/HCPCS: 71046; 87651; 99284

== ENCOUNTER 2024-06-29 02:55 | Emergency (ER) | payer MEDICARE, OTHER ==
--- NOTE | 2024-06-29 03:01 | ED ---
General Adult HPI - General Stated complaint: Pain all over - History of Present Illness Initial comments: Dictation was produced using [employer] dictation software. please excuse any grammatical, word or spelling errors. Chief Complaint: 53-year-old female presents with total body pain History of Present Illness: Patient 53-year-old female she has history of diabetes she is well-known to emergency department for multiple visitations for a myriad of complaints. This is her 46 visit this year. States that she is here by EMS for hypoglycemia and total body pain. The ROS documented in this emergency department record has been reviewed and confirmed by me. Those systems with pertinent positive or negative responses have been documented in the HPI. All other systems are other negative and/or noncontributory. - Related Data Home Medications Medication Instructions Recorded Confirmed Atorvastatin [Lipitor] 80 mg PO HS 06/25/19 06/13/24 lisinopriL 40 mg PO DAILY 09/24/20 06/13/24 traZODone HCL 50 mg PO HS 01/11/21 06/13/24 Albuterol Inhaler [Ventolin Hfa 2 puff INHALATION RT-QID PRN 03/01/23 06/13/24 Inhaler] Insulin Glargine,Hum.rec.anlog 30 units SQ HS 07/30/23 06/13/24 [Lantus Solostar Pen] Ezetimibe [Zetia] 10 mg PO HS 02/17/24 06/13/24 Insulin Aspart (Niacinamide) 20 units SQ AC-TID 02/17/24 06/13/24 [Fiasp 100 Unit/ml Flextouch Pen] Nystatin 100,000 Unit/gm Powd 1 applic TOPICAL BID PRN 02/17/24 06/13/24 [Mycostatin Powder] Pantoprazole [Protonix] 40 mg PO DAILY 02/17/24 06/13/24 metFORMIN HCL 1,000 mg PO BID 06/13/24 06/13/24 Previous Rx's Medication Instructions Recorded amLODIPine [Norvasc] 10 mg PO DAILY #30 tab 03/11/23 hydrALAZINE HCL [Apresoline] 25 mg PO BID #60 tab 03/11/23 Ondansetron Odt [Zofran ODT] 4 mg PO Q8HR PRN #10 tab 03/29/24 Ibuprofen [Motrin] 600 mg PO Q8HR PRN 30 Days #30 tab 04/11/24 Famotidine [Pepcid] 20 mg PO DAILY #20 tablet 04/18/24 Ipratropium [place] 0.06%Nasal 2 spray EA NOSTRIL BID #15 ml 06/07/24 [Atrovent Nasal 0.06%] Ondansetron Odt [Zofran Odt] 4 mg PO Q8HR PRN #10 tab 06/19/24 Allergies Allergy/AdvReac Type Severity Reaction Status Date / Time levofloxacin [From Levaquin] Allergy Rash/Hives Verified 06/29/24 03:02 Review of Systems ROS Statement: Those systems with pertinent positive or pertinent negative responses have been documented in the HPI. ROS Other: All systems not noted in ROS Statement are negative. Past Medical History Past Medical History: Diabetes Mellitus, GERD/Reflux, Hyperlipidemia, Hypertension, Syncope Additional Past Medical History / Comment(s): Pt recently admitted to [facility] on 07/21/21 with uncontrolled IDDM and hyperkalemia. Other hx: Recurrent pancreatitis, hypertriglyceridemia, elevated lipase, IDDM type II, UTI, chronic low back pain, bulging discs, dental abscesses in past. History of Any Multi-Drug Resistant Organisms: MRSA Date of last positivie culture/infection: 03/01/23 MDRO Source:: Abdomen Past Surgical History: Tubal Ligation Additional Past Surgical History / Comment(s): Age 7 had VSD repair, tumor removal 03/2023 Past Anesthesia/Blood Transfusion Reactions: No Reported Reaction Past Psychological History: No Psychological Hx Reported Smoking Status: Former smoker, Second hand smoke exposure, Vaper Past Alcohol Use History: None Reported Past Drug Use History: None Reported - Past Family History Mother Family Medical History: No Reported History Additional Family Medical History / Comment(s): Mother was healthy. She is , pt cannot recall cause of . Father Family Medical History: Pneumonia Additional Family Medical History / Comment(s): Father at the age of 67yrs from pneumonia General Exam - General Exam Comments Initial Comments: PHYSICAL EXAM: General Impression: Alert and oriented x3, not in acute distress HEENT: Normocephalic atraumatic, extra-ocular movements intact, pupils equal and reactive to light bilaterally, mucous membranes moist. Cardiovascular: Heart regular rate and rhythm Chest: Able to complete full sentences, no retractions, no tachypnea Abdomen: abdomen soft, non-tender, non-distended, no organomegaly Musculoskeletal: Pulses present and equal in all extremities, no peripheral edema Motor: no focal deficits noted Neurological: CN II-XII grossly intact, no focal motor or sensory deficits noted Skin: Intact with no visualized rashes Psych: Normal affect and mood Course Vital Signs 06/29/24 02:56 Temperature 98.8 F Pulse Rate 74 Respiratory 18 Rate Blood Pressure 151/92 O2 Sat by Pulse 95 Oximetry Medical Decision Making - Medical Decision Making Was pt. sent in by a medical professional or institution (, PA, DE ALCHOLIZER, urgent care, hospital, or half-way...) When possible be specific @ -No Did you speak to anyone other than the patient for history (EMS, parent, family, police, friend...)? What history was obtained from this source @ -No Did you review nursing and triage notes (agree or disagree)? Why? @ -I reviewed and agree with nursing and triage notes Were old charts reviewed (outside hosp., previous admission, EMS record, old EKG, old radiological studies, urgent care reports/EKG's, half-way records)? Report findings @ -No old charts were reviewed Differential Diagnosis (chest pain, altered mental status, abdominal pain women, abdominal pain men, vaginal bleeding, musculoskeletal, weakness, fever, dyspnea, syncope, headache, dizziness, GI bleed, back pain, seizure, CVA, palpatations, mental health)? @ -DKA, hyperosmolar coma, myalgias EKG interpreted by me (3pts min.). @ -None done X-rays interpreted by me (1pt min.). @ -None done CT interpreted by me (1pt min.). @ -None done U/S interpreted by me (1pt. min.). @ -None done What testing was considered but not performed or refused? (CT, X-rays, U/S, labs)? Why? @ -None What meds were considered but not given or refused? Why? @ -None Was smoking cessation discussed for >3mins.? @ -No Were there social determinants of health that impacted care today? How? (Homelessness, low income, unemployed, alcoholism, drug addiction, transportation, low edu. Level, literacy, decrease access to med. care, fci, rehab)? @ -No Was there de-escalation of care discussed even if they declined (Discuss DNR or withdrawal of care, Hospice)? DNR status @ -No What co-morbidities impacted this encounter? (DM, HTN, Smoking, COPD, CAD, Cancer, CVA, ARF, Chemo, Hep., AIDS, mental health diagnosis, sleep apnea, morbi d obesity)? @ -Diabetic Was patient admitted / discharged? Hospital course, mention meds given and route, prescriptions, significant lab abnormalities, going to OR and other pertinent info. @ -53-year-old female presents to the ER for hyperglycemia and total body pain. Vital signs are stable. Physical examination is benign. Patient appears to be at baseline. Patient has been seen and evaluated by me on a multitude of occasions. Blood sugars elevated. Patient given subcu insulin. Patient also given IM Toradol. Blood glucose improved. Patient discharged Did you discuss the management of the patient with other professionals (professionals i.e. , PA, DE ALCHOLIZER, lab, RT, psych nurse, social research assistant, body presser, teacher, engineering officer, case assembler)? Give summary @ -No Was critical care preformed (if so, how long)? @ -No Undiagnosed new problem with uncertain prognosis? @ -No Drug Therapy requiring intensive monitoring for toxicity (Heparin, Nitro, Insulin, Cardizem)? @ -No Were any procedures done? @ -No Diagnosis/symptom? Acute, or Chronic, or Acute on Chronic? Uncomplicated (without systemic symptoms) or Complicated (systemic symptoms)? @ -Hyperglycemia, chronic pain Side effects of treatment? @ -No Exacerbation, Progression, or Severe Exacerbation? @ -No Poses a threat to life or bodily function? How? (Chest pain, [place], [place], pneumonia, PE, COPD, DKA, ARF, appy, cholecystitis, CVA, Diverticulitis, Homicidal, Suicidal, threat to staff... and all critical care pts) @ -No - Lab Data Lab Results 06/29/24 06/29/24 06/29/24 Range/Units 03:04 04:25 05:50 POC Glucose (mg/dL) 576 H* 476 H 420 H (70-110) mg/dL POC Glu Mortgage Sales Manager ID Severo Gutierres Disposition Clinical Impression: Hyperglycemia Disposition: HOME SELF-CARE Condition: Fair Instructions (If sedation given, give patient instructions): Diabetic Hyperglycemia (ED) Is patient prescribed a controlled substance at d/c from ED?: No Referrals: Ronel Manzano MD [Primary Care Provider] - 1-2 days Time of Disposition: 03:01
[2024-06-29 03:02] VITALS: RESP 18
[2024-06-29 03:07] LABS: Glucose,Whole Blood 576 mg/dL (70-110)
[2024-06-29] MEDS: INSULIN LISPRO (HumaLOG) 100 UNIT/ML 10 mL VL SQ ONE ×3 (03:31→07:00)
[2024-06-29] MEDS: KETOROLAC 15 MG/ML 1 ML VIAL IM STA (03:32)
[2024-06-29 04:27] LABS: Glucose,Whole Blood 476 mg/dL (70-110)
[2024-06-29 05:51] LABS: Glucose,Whole Blood 420 mg/dL (70-110)
[2024-06-29 06:58] LABS: Glucose,Whole Blood 229 mg/dL (70-110)
[2024-06-29 07:12] VITALS: BP 146/77; PULSE 65; TEMP 99.1
== END 2024-06-29 07:02 | disposition home or self-care (01) ==
LOC: EC 02:55
DX: E11.65 Type 2 diabetes mellitus with hyperglycemia (principal); F17.290 Nicotine dependence, other tobacco product, uncomplicated; Z88.1 Allergy status to other antibiotic agents
CPT/HCPCS: 36415; 99283; 96372; J1885

== ENCOUNTER 2024-06-30 03:18 | Emergency (ER) | payer MEDICARE, OTHER ==
[2024-06-30 03:25] VITALS: RESP 18; TEMP 98.1
[2024-06-30 04:45] LABS: Influenza A Not Detected (Not Detectd); Influenza B Not Detected (Not Detectd); RSV Not Detected (Not Detectd)
--- NOTE | 2024-06-30 06:14 | XR ---
EXAMINATION TYPE: XR chest 2V DATE OF EXAM: 06/30/2024 CLINICAL INDICATION: Female, 53 years old with history of cough, TECHNIQUE: Frontal and lateral views of the chest are obtained. COMPARISON: Chest x-ray 4 days earlier FINDINGS: There is no focal air space opacity, pleural effusion, or pneumothorax seen. Stable mild c ardiomegaly. The osseous structures are intact. IMPRESSION: No acute pulmonary infiltrate. No significant change from most recent prior. [facility], , 06/30/2024 6:11 AM
--- NOTE | 2024-06-30 06:58 | ED ---
URI HPI - General Chief Complaint: Upper Respiratory Infection Stated Complaint: cough Time Seen by Provider: 06/30/24 04:12 Source: patient Mode of arrival: EMS - History of Present Illness Initial Comments: This patient is a 53-year-old woman with history of diabetes who presents with complaint that she is having upper respiratory symptoms. The patient has been having cough, congestion, some low-grade fevers and mild sore throat. Patient denies dyspnea. No bert pain. MD Complaint: fever, cough, nasal congestion -: days(s) Consistency: constant Improves With: nothing Worsens With: nothing Context: sick contacts Associated Symptoms: nasal congestion, cough Treatments Prior to Arrival: none - Related Data Home Medications Medication Instructions Recorded Confirmed Atorvastatin [Lipitor] 80 mg PO HS 06/25/19 06/13/24 lisinopriL 40 mg PO DAILY 09/24/20 06/13/24 traZODone HCL 50 mg PO HS 01/11/21 06/13/24 Albuterol Inhaler [Ventolin Hfa 2 puff INHALATION RT-QID PRN 03/01/23 06/13/24 Inhaler] Insulin Glargine,Hum.rec.anlog 30 units SQ HS 07/30/23 06/13/24 [Lantus Solostar Pen] Ezetimibe [Zetia] 10 mg PO HS 02/17/24 06/13/24 Insulin Aspart (Niacinamide) 20 units SQ AC-TID 02/17/24 06/13/24 [Fiasp 100 Unit/ml Flextouch Pen] Nystatin 100,000 Unit/gm Powd 1 applic TOPICAL BID PRN 02/17/24 06/13/24 [Mycostatin Powder] Pantoprazole [Protonix] 40 mg PO DAILY 02/17/24 06/13/24 metFORMIN HCL 1,000 mg PO BID 06/13/24 06/13/24 Previous Rx's Medication Instructions Recorded amLODIPine [Norvasc] 10 mg PO DAILY #30 tab 03/11/23 hydrALAZINE HCL [Apresoline] 25 mg PO BID #60 tab 03/11/23 Ondansetron Odt [Zofran ODT] 4 mg PO Q8HR PRN #10 tab 03/29/24 Ibuprofen [Motrin] 600 mg PO Q8HR PRN 30 Days #30 tab 04/11/24 Famotidine [Pepcid] 20 mg PO DAILY #20 tablet 04/18/24 Ipratropium [place] 0.06%Nasal 2 spray EA NOSTRIL BID #15 ml 06/07/24 [Atrovent Nasal 0.06%] Ondansetron Odt [Zofran Odt] 4 mg PO Q8HR PRN #10 tab 06/19/24 Acetaminophen-Codeine 300-30mg 1 tab PO Q4H PRN #10 tablet 06/30/24 [Tylenol w/codeine #3] Allergies Allergy/AdvReac Type Severity Reaction Status Date / Time levofloxacin [From Levaquin] Allergy Rash/Hives Verified 07/17/24 23:40 Review of Systems ROS Statement: Those systems with pertinent positive or pertinent negative responses have been documented in the HPI. ROS Other: All systems not noted in ROS Statement are negative. Constitutional: Denies: fever, chills, weakness ENT: Reports: congestion. Denies: throat pain Respiratory: Reports: cough. Denies: dyspnea, wheezes Cardiovascular: Denies: chest pain, palpitations, syncope Gastrointestinal: Denies: abdominal pain, vomiting, diarrhea Genitourinary: Denies: dysuria, frequency Skin: Denies: rash Neurological: Denies: headache, weakness Past Medical History Past Medical History: Diabetes Mellitus, GERD/Reflux, Hyperlipidemia, Hypertension, Syncope Additional Past Medical History / Comment(s): Pt recently admitted to [facility] on 07/21/21 with uncontrolled IDDM and hyperkalemia. Other hx: Recurrent pancreatitis, hypertriglyceridemia, elevated lipase, IDDM type II, UTI, chronic low back pain, bulging discs, dental abscesses in past. History of Any Multi-Drug Resistant Organisms: MRSA Date of last positivie culture/infection: 03/01/23 MDRO Source:: Abdomen Past Surgical History: Tubal Ligation Additional Past Surgical History / Comment(s): Age 7 had VSD repair, tumor removal 03/2023 Past Anesthesia/Blood Transfusion Reactions: No Reported Reaction Past Psychological History: No Psychological Hx Reported Smoking Status: Former smoker, Second hand smoke exposure, Vaper Past Alcohol Use History: None Reported Past Drug Use History: None Reported - Past Family History Mother Family Medical History: No Reported History Additional Family Medical History / Comment(s): Mother was healthy. She is , pt cannot recall cause of . Father Family Medical History: Pneumonia Additional Family Medical History / Comment(s): Father at the age of 67yrs from pneumonia General Exam General appearance: alert, in no apparent distress Head exam: Present: atraumatic, normocephalic Eye exam: Present: normal appearance. Absent: scleral icterus, conjunctival injection ENT exam: Present: normal oropharynx, mucous membranes moist Neck exam: Present: normal inspection, full ROM. Absent: tenderness, meningismus Respiratory exam: Present: normal lung sounds bilaterally. Absent: respiratory distress, wheezes, rales, rhonchi, stridor, accessory muscle use Cardiovascular Exam: Present: regular rate, normal rhythm, normal heart sounds. Absent: systolic murmur, diastolic murmur, rubs, gallop GI/Abdominal exam: Present: soft. Absent: distended, tenderness, guarding, rebound, rigid Extremities exam: Present: normal inspection Back exam: Present: normal inspection Neurological exam: Present: alert Skin exam: Present: warm, dry, intact, normal color. Absent: rash Course Vital Signs 06/30/24 06/30/24 03:21 07:53 Temperature 98.1 F 98.1 F Pulse Rate 68 72 Respiratory 18 18 Rate Blood Pressure 135/74 131/76 O2 Sat by Pulse 100 100 Oximetry Medical Decision Making - Medical Decision Making Was pt. sent in by a medical professional or institution (ROSALIE Flaherty, PUBLIC HEALTH OFFICER, urgent care, hospital, or retirement...) When possible be specific @ -[No] Did you speak to anyone other than the patient for history (EMS, parent, family, police, friend...)? What history was obtained from this source @ -[No] Did you review nursing and triage notes (agree or disagree)? Why? @ -[I reviewed and agree with nursing and triage notes] Were old charts reviewed (outside hosp., previous admission, EMS record, old EKG, old radiological studies, urgent care reports/EKG's, retirement records)? Report findings @ -[No old charts were reviewed] Differential Diagnosis (chest pain, altered mental status, abdominal pain women, abdominal pain men, vaginal bleeding, weakness, fever, dyspnea, syncope, headache, dizziness, GI bleed, back pain, seizure, CVA, palpatations, mental health, musculoskeletal)? @ -[Differential diagnosis includes upper respiratory infection, allergic reaction, pneumonia, this list not comprehensive EKG interpreted by me (3pts min.). @ -[As above] X-rays interpreted by me (1pt min.). @ -[None done] CT interpreted by me (1pt min.). @ -[None done] U/S interpreted by me (1pt. min.). @ -[None done] What testing was considered but not performed or refused? (CT, X-rays, U/S, labs)? Why? @ -[None] What meds were considered but not given or refused? Why? @ -[None] Did you discuss the management of the patient with other professionals (professionals i.e. DrShayan, PA, PUBLIC HEALTH OFFICER, lab, RT, psych nurse, social work faculty member, refrigeration repair supervisor, teacher, transportation security officer, pillowcase sewer)? Give summary @ -[No] Was smoking cessation discussed for >3mins.? @ -[No] Was critical care preformed (if so, how long)? @ -[No] Were there social determinants of health that impacted care today? How? (Homelessness, low income, unemployed, alcoholism, drug addiction, transportation, low edu. Level, literacy, decrease access to med. care, prison, rehab)? @ -[No] Was there de-escalation of care discussed even if they declined (Discuss DNR or withdrawal of care, Hospice)? DNR status @ -[No] What co-morbidities impacted this encounter? (DM, HTN, Smoking, COPD, CAD, Ca ncer, CVA, ARF, Chemo, Hep., AIDS, mental health diagnosis, sleep apnea, morbid obesity)? @ -[Diabetes Was patient admitted / discharged? Hospital course, mention meds given and route, prescriptions, significant lab abnormalities, going to OR and other pertinent info. @ -[Patient is 53-year-old woman here with upper respiratory symptoms. The patient's exam is benign. No evidence of lower respiratory involvement. The patient stable to continue as outpatient. Discussed appropriate further care and follow-up Undiagnosed new problem with uncertain prognosis? @ -[No] Drug Therapy requiring intensive monitoring for toxicity (Heparin, Nitro, Insulin, Cardizem)? @ -[No] Were any procedures done? @ -[No] Diagnosis/symptom? @ -[Acute upper respiratory infection Acute, or Chronic, or Acute on Chronic? @ -[Acute Uncomplicated (without systemic symptoms) or Complicated (systemic symptoms)? @ -[Uncomplicated Side effects of treatment? @ -[No] Exacerbation, Progression, or Severe Exacerbation? @ -[No] Poses a threat to life or bodily function? How? (Chest pain, [place], [place], pneumonia, PE, COPD, DKA, ARF, appy, cholecystitis, CVA, Diverticulitis, Homicidal, Suicidal, threat to staff... and all critical care pts) @ -[No] All treatments are based on ideal body weight as in ED triage - Lab Data Lab Results 06/30/24 Range/Units 03:46 Influenza Type A (PCR) Not Detected (Not Detectd) Influenza Type B (PCR) Not Detected (Not Detectd) RSV (PCR) Not Detected (Not Detectd) SARS-CoV-2 (PCR) Not Detected (Not Detectd) Disposition Clinical Impression: Viral infection Disposition: HOME SELF-CARE Condition: Good Instructions (If sedation given, give patient instructions): Upper Respiratory Infection (ED) Prescriptions: Acetaminophen-Codeine 300-30mg [Tylenol w/codeine #3] 1 tab PO Q4H PRN #10 tablet PRN Reason: Pain Is patient prescribed a controlled substance at d/c from ED?: No Referrals: Ronel Manzano MD [Primary Care Provider] - 1-2 days Nahomy Valenzuela MD [STAFF PHYSICIAN] - 1-2 days
[2024-06-30] MEDS: ACETAMINOPHEN TAB 325 MG TAB PO STA (07:11)
[2024-06-30] MEDS: IBUPROFEN 400 MG TAB PO STA (07:12)
[2024-06-30 07:56] VITALS: BP 131/76; PULSE 72
== END 2024-06-30 07:53 | disposition home or self-care (01) ==
LOC: EC 03:18
DX: B34.9 Viral infection, unspecified (principal); J06.9 Acute upper respiratory infection, unspecified; E11.9 Type 2 diabetes mellitus without complications; F17.290 Nicotine dependence, other tobacco product, uncomplicated; Z79.4 Long term (current) use of insulin; Z79.84 Long term (current) use of oral hypoglycemic drugs; Z88.1 Allergy status to other antibiotic agents
CPT/HCPCS: 71046; 87636; 99284

== ENCOUNTER 2024-07-05 00:21 | Emergency (ER) | payer MEDICARE ==
[2024-07-05 00:49] VITALS: BP 167/86; PULSE 67; RESP 18; TEMP 99
[2024-07-05] MEDS: BENZONATATE 100 MG CAP PO STA (01:14)
[2024-07-05] MEDS: KETOROLAC 15 MG/ML 1 ML VIAL IM STA (01:14)
--- NOTE | 2024-07-05 01:39 | ED ---
General Adult HPI - General Chief complaint: Back Pain/Injury Stated complaint: general pain Time Seen by Provider: 07/05/24 00:24 Source: patient, EMS, RN notes reviewed Mode of arrival: EMS Limitations: no limitations - History of Present Illness Initial comments: 53-year-old female presents to the emergency department for evaluation of cough and generalized pain. Patient has been seen multiple times recently for the same complaint. Patient states that the cough is persistent and chronic. She has been taking NyQuil for this. She has had a COVID, influenza, RSV swab which was negative. She also had a negative chest x-ray recently. Denies any fever, chills. Reports a smoking history but does not currently smoke. - Related Data Home Medications Medication Instructions Recorded Confirmed Atorvastatin [Lipitor] 80 mg PO HS 06/25/19 06/13/24 lisinopriL 40 mg PO DAILY 09/24/20 06/13/24 traZODone HCL 50 mg PO HS 01/11/21 06/13/24 Albuterol Inhaler [Ventolin Hfa 2 puff INHALATION RT-QID PRN 03/01/23 06/13/24 Inhaler] Insulin Glargine,Hum.rec.anlog 30 units SQ HS 07/30/23 06/13/24 [Lantus Solostar Pen] Ezetimibe [Zetia] 10 mg PO HS 02/17/24 06/13/24 Insulin Aspart (Niacinamide) 20 units SQ AC-TID 02/17/24 06/13/24 [Fiasp 100 Unit/ml Flextouch Pen] Nystatin 100,000 Unit/gm Powd 1 applic TOPICAL BID PRN 02/17/24 06/13/24 [Mycostatin Powder] Pantoprazole [Protonix] 40 mg PO DAILY 02/17/24 06/13/24 metFORMIN HCL 1,000 mg PO BID 06/13/24 06/13/24 Previous Rx's Medication Instructions Recorded amLODIPine [Norvasc] 10 mg PO DAILY #30 tab 03/11/23 hydrALAZINE HCL [Apresoline] 25 mg PO BID #60 tab 03/11/23 Ondansetron Odt [Zofran ODT] 4 mg PO Q8HR PRN #10 tab 03/29/24 Ibuprofen [Motrin] 600 mg PO Q8HR PRN 30 Days #30 tab 04/11/24 Famotidine [Pepcid] 20 mg PO DAILY #20 tablet 04/18/24 Ipratropium [place] 0.06%Nasal 2 spray EA NOSTRIL BID #15 ml 06/07/24 [Atrovent Nasal 0.06%] Ondansetron Odt [Zofran Odt] 4 mg PO Q8HR PRN #10 tab 06/19/24 Acetaminophen-Codeine 300-30mg 1 tab PO Q4H PRN #10 tablet 06/30/24 [Tylenol w/codeine #3] Allergies Allergy/AdvReac Type Severity Reaction Status Date / Time levofloxacin [From Levaquin] Allergy Rash/Hives Verified 06/30/24 03:25 Review of Systems ROS Statement: Those systems with pertinent positive or pertinent negative responses have been documented in the HPI. ROS Other: All systems not noted in ROS Statement are negative. Past Medical History Past Medical History: Diabetes Mellitus, GERD/Reflux, Hyperlipidemia, H ypertension, Syncope Additional Past Medical History / Comment(s): Pt recently admitted to [facility] on 07/21/21 with uncontrolled IDDM and hyperkalemia. Other hx: Recurrent wyatt creatitis, hypertriglyceridemia, elevated lipase, IDDM type II, UTI, chronic low back pain, bulging discs, dental abscesses in past. History of Any Multi-Drug Resistant Organisms: MRSA Date of last positivie culture/infection: 03/01/23 MDRO Source:: Abdomen Past Surgical History: Tubal Ligation Additional Past Surgical History / Comment(s): Age 7 had VSD repair, tumor removal 03/2023 Past Anesthesia/Blood Transfusion Reactions: No Reported Reaction Past Psychological History: No Psychological Hx Reported Smoking Status: Former smoker, Second hand smoke exposure, Vaper Past Alcohol Use History: None Reported Past Drug Use History: None Reported - Past Family History Mother Family Medical History: No Reported History Additional Family Medical History / Comment(s): Mother was healthy. She is , pt cannot recall cause of . Father Family Medical History: Pneumonia Additional Family Medical History / Comment(s): Father at the age of 67yrs from pneumonia General Exam Limitations: no limitations General appearance: alert, in no apparent distress Head exam: Present: atraumatic, normocephalic, normal inspection Eye exam: Present: normal appearance, PERRL, EOMI. Absent: scleral icterus, conjunctival injection, periorbital swelling ENT exam: Present: normal exam, mucous membranes moist Neck exam: Present: normal inspection. Absent: tenderness, meningismus, lymphadenopathy Respiratory exam: Present: normal lung sounds bilaterally. Absent: respiratory distress, wheezes, rales, rhonchi, stridor Cardiovascular Exam: Present: regular rate, normal rhythm, normal heart sounds. Absent: systolic murmur, diastolic murmur, rubs, gallop, clicks Extremities exam: Present: normal inspection, full ROM, normal capillary refill. Absent: tenderness, pedal edema, joint swelling, calf tenderness Neurological exam: Present: alert, oriented X3 Psychiatric exam: Present: normal affect, normal mood Skin exam: Present: warm, dry, intact, normal color. Absent: rash Course Vital Signs 07/05/24 00:46 Temperature 99.0 F Pulse Rate 67 Respiratory 18 Rate Blood Pressure 167/86 O2 Sat by Pulse 97 Oximetry Medical Decision Making - Medical Decision Making Was pt. sent in by a medical professional or institution (ROSALIE Flaherty, TREATER, urgent care, hospital, or halfway...) When possible be specific @ -No Did you speak to anyone other than the patient for history (EMS, parent, family, police, friend...)? What history was obtained from this source @ -No Did you review nursing and triage notes (agree or disagree)? Why? @ -I reviewed and agree with nursing and triage notes Were old charts reviewed (outside hosp., previous admission, EMS record, old EKG, old radiological studies, urgent care reports/EKG's, halfway records)? Report findings @ -Prior visit was reviewed including chest x-ray which shows no acute process Differential Diagnosis (chest pain, altered mental status, abdominal pain women, abdominal pain men, vaginal bleeding, weakness, fever, dyspnea, syncope, headache, dizziness, GI bleed, back pain, seizure, CVA, palpatations, mental health, musculoskeletal)? @ -COVID, influenza, RSV, strep pharyngitis, pneumonia, this list is not all inclusive. EKG interpreted by me (3pts min.). @ -None X-rays interpreted by me (1pt min.). @ -None done CT interpreted by me (1pt min.). @ -None done U/S interpreted by me (1pt. min.). @ -None done What testing was considered but not performed or refused? (CT, X-rays, U/S, labs)? Why? @ -None What meds were considered but not given or refused? Why? @ -None Did you discuss the management of the patient with other professionals (professionals i.e. , PA, TREATER, lab, RT, psych nurse, social insurance specialist, performance instructor, teacher, chief contract officer, case assistant)? Give summary @ -No Was smoking cessation discussed for >3mins.? @ -No Was critical care preformed (if so, how long)? @ -No Were there social determinants of health that impacted care today? How? (Homelessness, low income, unemployed, alcoholism, drug addiction, transportation, low edu. Level, literacy, decrease access to med. care, alf, rehab)? @ -No Was there de-escalation of care discussed even if they declined (Discuss DNR or withdrawal of care, Hospice)? DNR status @ -No What co-morbidities impacted this encounter? (DM, HTN, Smoking, COPD, CAD, Cancer, CVA, ARF, Chemo, Hep., AIDS, mental health diagnosis, sleep apnea, mo rbid obesity)? @ -None Was patient admitted / discharged? Hospital course, mention meds given and route, prescriptions, significant lab abnormalities, going to OR and other pertinent info. @ -Discharge. Patient presented emergency department for evaluation of cough, full body pain. These symptoms seem to be chronic in nature. She has had workup for these issues recently. She did have a normal chest x-ray 5 days ago. Patient is not having any fever or chills. No shortness of breath. Vital signs are stable. Patient was provided medication for her symptoms. She will be discharged home. She is understanding agreeable plan. Patient stable at time of discharge. Case discussed with Dr. Patrick. Undiagnosed new problem with uncertain prognosis? @ -No Drug Therapy requiring intensive monitoring for toxicity (Heparin, Nitro, Insulin, Cardizem)? @ -No Were any procedures done? @ -No Diagnosis/symptom? @ -Cough Acute, or Chronic, or Acute on Chronic? @ -Chronic Uncomplicated (without systemic symptoms) or Complicated (systemic symptoms)? @ -Uncomplicated Side effects of treatment? @ -No Exacerbation, Progression, or Severe Exacerbation? @ -No Poses a threat to life or bodily function? How? (Chest pain, USA, MD, pneumonia, PE, COPD, DKA, ARF, appy, cholecystitis, CVA, Diverticulitis, Homicidal, Suicidal, threat to staff... and all critical care pts) @ -No Disposition Clinical Impression: Chronic cough Disposition: HOME SELF-CARE Condition: Stable Instructions (If sedation given, give patient instructions): Chronic Cough (ED) Additional Instructions: Utilize your albuterol inhaler as needed every 4-6 hours. Follow up with your primary care provider. Return to the emergency department for new or worsening symptoms. Is patient prescribed a controlled substance at d/c from ED?: No Referrals: None,Stated [Primary Care Provider] - 1-2 days
== END 2024-07-05 01:48 | disposition home or self-care (01) ==
LOC: EC 00:21
DX: R05.3 Chronic cough (principal); F17.290 Nicotine dependence, other tobacco product, uncomplicated; Z88.1 Allergy status to other antibiotic agents
CPT/HCPCS: 99284; 96372; J1885

== ENCOUNTER 2024-07-05 11:26 | Emergency (ER) | payer MEDICARE ==
--- NOTE | 2024-07-05 11:57 | ED ---
Recheck HPI - General Chief Complaint: Recheck/Abnormal Lab/Rx Stated Complaint: hyperlycemia Time Seen by Provider: 07/05/24 11:29 Source: patient, EMS, RN notes reviewed Mode of arrival: EMS Limitations: no limitations - History of Present Illness Initial Comments: This is a 53-year-old female who presents to the emergency department for hyperglycemia, body aches, nausea, and "not feeling good". Patient is very well-known to this emergency department for these reasons and other multiple complaints. She was evaluated here earlier this morning as well. Per EMS her sugar was approximately 400. She does report taking her insulin and all of her medication this morning. MD Complaint: abnormal lab - Related Data Home Medications Medication Instructions Recorded Confirmed Atorvastatin [Lipitor] 80 mg PO HS 06/25/19 06/13/24 lisinopriL 40 mg PO DAILY 09/24/20 06/13/24 traZODone HCL 50 mg PO HS 01/11/21 06/13/24 Albuterol Inhaler [Ventolin Hfa 2 puff INHALATION RT-QID PRN 03/01/23 06/13/24 Inhaler] Insulin Glargine,Hum.rec.anlog 30 units SQ HS 07/30/23 06/13/24 [Lantus Solostar Pen] Ezetimibe [Zetia] 10 mg PO HS 02/17/24 06/13/24 Insulin Aspart (Niacinamide) 20 units SQ AC-TID 02/17/24 06/13/24 [Fiasp 100 Unit/ml Flextouch Pen] Nystatin 100,000 Unit/gm Powd 1 applic TOPICAL BID PRN 02/17/24 06/13/24 [Mycostatin Powder] Pantoprazole [Protonix] 40 mg PO DAILY 02/17/24 06/13/24 metFORMIN HCL 1,000 mg PO BID 06/13/24 06/13/24 Previous Rx's Medication Instructions Recorded amLODIPine [Norvasc] 10 mg PO DAILY #30 tab 03/11/23 hydrALAZINE HCL [Apresoline] 25 mg PO BID #60 tab 03/11/23 Ondansetron Odt [Zofran ODT] 4 mg PO Q8HR PRN #10 tab 03/29/24 Ibuprofen [Motrin] 600 mg PO Q8HR PRN 30 Days #30 tab 04/11/24 Famotidine [Pepcid] 20 mg PO DAILY #20 tablet 04/18/24 Ipratropium [place] 0.06%Nasal 2 spray EA NOSTRIL BID #15 ml 06/07/24 [Atrovent Nasal 0.06%] Ondansetron Odt [Zofran Odt] 4 mg PO Q8HR PRN #10 tab 06/19/24 Acetaminophen-Codeine 300-30mg 1 tab PO Q4H PRN #10 tablet 06/30/24 [Tylenol w/codeine #3] Allergies Allergy/AdvReac Type Severity Reaction Status Date / Time levofloxacin [From Levaquin] Allergy Rash/Hives Verified 07/05/24 11:38 Review of Systems ROS Statement: Those systems with pertinent positive or pertinent negative responses have been documented in the HPI. ROS Other: All systems not noted in ROS Statement are negative. Past Medical History Past Medical History: Diabetes Mellitus, GERD/Reflux, Hyperlipidemia, Hypertension, Syncope Additional Past Medical History / Comment(s): Pt recently admitted to [facility] on 07/21/21 with uncontrolled IDDM and hyperkalemia. Other hx: Recurrent p ancreatitis, hypertriglyceridemia, elevated lipase, IDDM type II, UTI, chronic low back pain, bulging discs, dental abscesses in past. History of Any Multi-Drug Resistant Organisms: MRSA Date of last positivie culture/infection: 03/01/23 MDRO Source:: Abdomen Past Surgical History: Tubal Ligation Additional Past Surgical History / Comment(s): Age 7 had VSD repair, tumor re moval 03/2023 Past Anesthesia/Blood Transfusion Reactions: No Reported Reaction Past Psychological History: No Psychological Hx Reported Smoking Status: Former smoker, Second hand smoke exposure, Vaper Past Alcohol Use History: None Reported Past Drug Use History: None Reported - Past Family History Mother Family Medical History: No Reported History Additional Family Medical History / Comment(s): Mother was healthy. She is , pt cannot recall cause of . Father Family Medical History: Pneumonia Additional Family Medical History / Comment(s): Father at the age of 67yrs from pneumonia General Exam Limitations: no limitations General appearance: alert, in no apparent distress Head exam: Present: atraumatic, normocephalic, normal inspection Respiratory exam: Present: normal lung sounds bilaterally. Absent: respiratory distress, wheezes, rales, rhonchi, stridor Cardiovascular Exam: Present: regular rate, normal rhythm Neurological exam: Present: alert, oriented X3, CN II-XII intact Psychiatric exam: Present: normal affect, normal mood Skin exam: Present: warm, dry, intact, normal color. Absent: rash Course Vital Signs 07/05/24 07/05/24 11:35 14:29 Temperature 99 F 97.9 F Pulse Rate 68 62 Respiratory 16 20 Rate Blood Pressure 168/99 159/77 O2 Sat by Pulse 95 98 Oximetry Medical Decision Making - Medical Decision Making This is a 53-year-old female who presents to the emergency department for hyperglycemia, body aches, and nausea. Was pt. sent in by a medical professional or institution? @ -No Did you speak to anyone other than the patient for history? @ -No Did you review nursing and triage notes? @ -Yes, and I agree, it is accurate with regards to the patient's symptoms. Were old charts reviewed? @ -No Differential Diagnosis? @ -Medication error, dietary intake, DKA, HHS, this is not meant to be an all- inclusive list. EKG interpreted by me (3pts min.)? @ -Not obtained X-rays interpreted by me (1pt min.)? @ -Not obtained CT interpreted by me (1pt min.)? @ -Not obtained U/S interpreted by me (1pt. min.)? @ -Not obtained What testing was considered but not performed? (CT, X-rays, U/S, labs)? Why? @ -None What meds were considered but not given? Why? @ -None Did you discuss the management of the patient with other professionals? @ -No Did you reconcile home meds? @ -No Was smoking cessation discussed for >3mins.? @ -I discussed smoking cessation for greater than 3 minutes. The risk of smoking were discussed with the patient including but not limited to risks of cancer, stroke, coronary artery disease and COPD. Also discussed with patient were multiple methods of quitting smoking. Lastly we discussed the financial cost of smoking. Was critical care preformed (if so, how long)? @ -No Were there social determinants of health that impacted care today? How? (Homelessness, low income, unemployed, alcoholism, drug addiction, transport ation, low edu. Level, literacy, decrease access to med. care, fdc, rehab)? @ -No Was there de-escalation of care discussed even if they declined? (Discuss DNR or withdrawal of care, Hospice)? @ -No What co-morbidities impacted this encounter? (DM, HTN, Smoking, COPD, CAD, Cancer, CVA, Hep., AIDS, mental health diagnosis, sleep apnea, morbid obesity)? @ -DM, smoking, HLD, HTN Was patient admitted / discharged? @ -Discharged. Lab work demonstrates a glucose of 365, which is fairly typical for the patient. Magnesium 1.5. Acetone negative. Patient not in DKA. Lab work otherwise unremarkable. Urinalysis negative for signs of infection. 2 L of IV fluids administered along with 400 mg of magnesium oxide. 10 units of insulin administered and sugar reduced to 214. Pain and nausea were managed as w ell. Patient discharged home in stable condition and advised to follow-up with her PCP. Return precautions reviewed in depth, the patient is instructed to return to the emergency department with any new, worsening, or concerning symptoms. Patient verbalized understanding. Undiagnosed new problem with uncertain prognosis? @ -None Drug Therapy requiring intensive monitoring for toxicity (Heparin, Nitro, Insulin, Cardizem)? @ -None Were any procedures done? @ -None Diagnosis/symptom? @ -Hyperglycemia, nausea, body aches Acute, or Chronic, or Acute on Chronic? @ -Chronic Uncomplicated (without systemic symptoms) or Complicated (systemic symptoms)? @ -Uncomplicated Side effects of treatment? @ -None Exacerbation, Progression, or Severe Exacerbation] @ -Exacerbation Poses a threat to life or bodily function? @ -No - Lab Data Result diagrams: 07/05/24 13:10 07/05/24 12:51 Lab Results 07/05/24 07/05/24 07/05/24 Range/Units 12:35 12:51 13:10 WBC 7.9 (3.8-10.6) k/uL RBC 4.90 (3.80-5.40) m/uL Hgb 12.5 (11.4-16.0) gm/dL Hct 39.2 (34.0-46.0) % MCV 80.0 (80.0-100.0) fL MCH 25.5 (25.0-35.0) pg MCHC 31.9 (31.0-37.0) g/dL RDW 16.5 H (11.5-15.5) % Plt Count 439 (150-450) k/uL MPV 6.7 Neutrophils % 59 % Lymphocytes % 32 % Monocytes % 4 % Eosinophils % 3 % Basophils % 1 % Neutrophils # 4.7 (1.3-7.7) k/uL Lymphocytes # 2.5 (1.0-4.8) k/uL Monocytes # 0.3 (0-1.0) k/uL Eosinophils # 0.3 (0-0.7) k/uL Basophils # 0.0 (0-0.2) k/uL Hypochromasia Slight Anisocytosis Slight Microcytosis Slight Sodium 130 L (137-145) mmol/L Potassium 5.1 (3.5-5.1) mmol/L Chloride 97 L (98-107) mmol/L Carbon Dioxide 19 L (22-30) mmol/L Anion Gap 14 mmol/L BUN 19 H (7-17) mg/dL Creatinine 0.59 (0.52-1.04) mg/dL Est GFR (CKD-EPI)AfAm >90 (>60 ml/min/1.73 sqM) Est GFR (CKD-EPI)NonAf >90 (>60 ml/min/1.73 sqM) Glucose 365 H (74-99) mg/dL POC Glucose (mg/dL) (70-110) mg/dL POC Glu Stenotype Operator ID Calcium 9.1 (8.4-10.2) mg/dL Magnesium 1.5 L (1.6-2.3) mg/dL Total Bilirubin 0.8 (0.2-1.3) mg/dL AST 24 (14-36) U/L ALT 18 (4-34) U/L Alkaline Phosphatase 135 H (38-126) U/L Troponin I (0.000-0.034) ng/mL Total Protein 6.7 (6.3-8.2) g/dL Albumin 3.7 (3.5-5.0) g/dL Urine Color Colorless Urine Appearance Clear (Clear) Urine pH 6.0 (5.0-8.0) Ur Specific [place] 1.016 (1.001-1.035) Urine Protein 2+ H (Negative) Urine Glucose (UA) 4+ H (Negative) Urine Ketones Negative (Negative) Urine Blood Negative (Negative) Urine Nitrite Negative (Negative) Urine Bilirubin Negative (Negative) Urine Urobilinogen <2.0 (<2.0) mg/dL Ur Leukocyte Esterase Negative (Negative) Urine RBC <1 (0-5) /hpf Urine WBC 2 (0-5) /hpf Ur Squamous Epith Cells 1 (0-4) /hpf Urine Bacteria Rare H (None) /hpf Urine Mucus Rare H (None) /hpf Acetone, Qual (Negative) 07/05/24 07/05/24 07/05/24 Range/Units 13:10 13:10 14:05 WBC (3.8-10.6) k/uL RBC (3.80-5.40) m/uL Hgb (11.4-16.0) gm/dL Hct (34.0-46.0) % MCV (80.0-100.0) fL MCH (25.0-35.0) pg MCHC (31.0-37.0) g/dL RDW (11.5-15.5) % Plt Count (150-450) k/uL MPV Neutrophils % % Lymphocytes % % Monocytes % % Eosinophils % % Basophils % % Neutrophils # (1.3-7.7) k/uL Lymphocytes # (1.0-4.8) k/uL Monocytes # (0-1.0) k/uL Eosinophils # (0-0.7) k/uL Basophils # (0-0.2) k/uL Hypochromasia Anisocytosis Microcytosis Sodium (137-145) mmol/L Potassium (3.5-5.1) mmol/L Chloride (98-107) mmol/L Carbon Dioxide (22-30) mmol/L Anion Gap mmol/L BUN (7-17) mg/dL Creatinine (0.52-1.04) mg/dL Est GFR (CKD-EPI)AfAm (>60 ml/min/1.73 sqM) Est GFR (CKD-EPI)NonAf (>60 ml/min/1.73 sqM) Glucose (74-99) mg/dL POC Glucose (mg/dL) 214 H (70-110) mg/dL POC Glu Stenotype Operator ID Sandra Webber Calcium (8.4-10.2) mg/dL Magnesium (1.6-2.3) mg/dL Total Bilirubin (0.2-1.3) mg/dL AST (14-36) U/L ALT (4-34) U/L Alkaline Phosphatase (38-126) U/L Troponin I <0.012 (0.000-0.034) ng/mL Total Protein (6.3-8.2) g/dL Albumin (3.5-5.0) g/dL Urine Color Urine Appearance (Clear) Urine pH (5.0-8.0) Ur Specific [place] (1.001-1.035) Urine Protein (Negative) Urine Glucose (UA) (Negative) Urine Ketones (Negative) Urine Blood (Negative) Urine Nitrite (Negative) Urine Bilirubin (Negative) Urine Urobilinogen (<2.0) mg/dL Ur Leukocyte Esterase (Negative) Urine RBC (0-5) /hpf Urine WBC (0-5) /hpf Ur Squamous Epith Cells (0-4) /hpf Urine Bacteria (None) /hpf Urine Mucus (None) /hpf Acetone, Qual Negative (Negative) Disposition Clinical Impression: Hyperglycemia, Weakness, Nicotine dependence, Nausea Disposition: HOME SELF-CARE Instructions (If sedation given, give patient instructions): Diabetic Hyperglycemia (ED) Additional Instructions: Return to the emergency department with any new, worsening, or concerning symptoms. Follow up with your primary care provider in 1-2 days. Is patient prescribed a controlled substance at d/c from ED?: No Referrals: None,Stated [Primary Care Provider] - 1-2 days Time of Disposition: 14:02
[2024-07-05 13:12] LABS: ALT 18 U/L (4-34); AST 24 U/L (14-36); African American GFR (CKD) >90 (>60 ml/min/1.73 sqM); Albumin 3.7 g/dL (3.5-5.0); Alkaline Phosphatase 135 U/L (38-126); Anion Gap 14 mmol/L; Blood Urea Nitrogen 19 mg/dL (7-17); Calcium 9.1 mg/dL (8.4-10.2); Carbon Dioxide 19 mmol/L (22-30); Chloride 97 mmol/L (98-107); Glucose 365 mg/dL (74-99); Magnesium 1.5 mg/dL (1.6-2.3); Non-African American GFR(CKD) >90 (>60 ml/min/1.73 sqM); Potassium 5.1 mmol/L (3.5-5.1); Sodium 130 mmol/L (137-145); Total Bilirubin 0.8 mg/dL (0.2-1.3); Total Protein 6.7 g/dL (6.3-8.2)
[2024-07-05] MEDS: SODIUM CHLORIDE 0.9% 1,000 ML IV SCH (13:15)
[2024-07-05] MEDS: KETOROLAC 15 MG/ML 1 ML VIAL IVP STA ×2 (13:16→14:23)
[2024-07-05] MEDS: ONDANSETRON 4 MG/2 ML VIAL IVP STA (13:17)
[2024-07-05] MEDS: HYDROmorphone 1 MG/ML 1 ML SYRINGE IVP STA ×2 (13:18→14:23)
[2024-07-05 13:22] LABS: Anisocytosis Slight; Basophils % (A) 1 %; Eosinophils # (A) 0.3 k/uL (0-0.7); Eosinophils % (A) 3 %; HCT 39.2 % (34.0-46.0); HGB 12.5 gm/dL (11.4-16.0); Hypochromasia Slight; Lymphocytes # (A) 2.5 k/uL (1.0-4.8); Lymphocytes % (A) 32 %; MCH 25.5 pg (25.0-35.0); MCHC 31.9 g/dL (31.0-37.0); Mean Platelet Volume 6.7; Microcytosis Slight; Monocytes # (A) 0.3 k/uL (0-1.0); Monocytes % (A) 4 %; Neutrophils # (A) 4.7 k/uL (1.3-7.7); Neutrophils % (A) 59 %; Platelet Count 439 k/uL (150-450); RDW 16.5 % (11.5-15.5); WBC 7.9 k/uL (3.8-10.6)
[2024-07-05] MEDS: MAGNESIUM OXIDE 400 MG TAB PO STA (13:25)
[2024-07-05] MEDS: INSULIN REGULAR 100 UNIT/ML VIAL (IV) IV ONE (13:25)
[2024-07-05 14:00] LABS: Appearance,Urine Clear (Clear); Bacteria,Urine Rare /hpf; Bilirubin,Urine Negative (Negative); Blood,Urine Negative (Negative); Color,Urine Colorless; Glucose,Urine (UA) 4+ (Negative); Ketones,Urine Negative (Negative); Leukocyte Esterase,Urine Negative (Negative); Mucus,Urine Rare /hpf; Nitrite,Urine Negative (Negative); Protein,Urine 2+ (Negative); RBC,Urine <1 /hpf (0-5); Specific Gravity,Urine 1.016 (1.001-1.035); Squamous Epithelial Cell,Urine 1 /hpf (0-4); Urobilinogen,Urine <2.0 mg/dL (<2.0); WBC,Urine 2 /hpf (0-5)
[2024-07-05 14:07] LABS: Glucose,Whole Blood 214 mg/dL (70-110)
[2024-07-05] MEDS: ONDANSETRON 4 MG ODT STARTER PACK 2 TAB BTL PO STA (14:20)
[2024-07-05] MEDS: ACET/COD 300 MG/30 MG STARTER PACK 6 TAB BTL PO STA (14:21)
[2024-07-05 14:30] VITALS: BP 159/77; PULSE 62; RESP 20; TEMP 97.9
== END 2024-07-05 14:30 | disposition home or self-care (01) ==
LOC: EC 11:26
DX: E11.65 Type 2 diabetes mellitus with hyperglycemia (principal); R11.0 Nausea; R53.1 Weakness; I10 Essential (primary) hypertension; E78.5 Hyperlipidemia, unspecified; F17.290 Nicotine dependence, other tobacco product, uncomplicated; Z88.1 Allergy status to other antibiotic agents; Z79.4 Long term (current) use of insulin
CPT/HCPCS: 36415; 80053; 82009; 83735; 84484; 85025; 81001; 99285; 99406; 96374; 96375; 96376; 96361; J2405; J1171; J1885; S0119

== ENCOUNTER 2024-07-08 01:22 | Emergency (ER) | payer MEDICARE ==
[2024-07-08 01:26] VITALS: TEMP 98.8
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
[2024-07-08 02:36] LABS: Glucose,Whole Blood 415 mg/dL (70-110)
[2024-07-08 03:01] LABS: Appearance,Urine Clear (Clear); Bilirubin,Urine Negative (Negative); Blood,Urine Negative (Negative); Color,Urine Colorless; Glucose,Urine (UA) 4+ (Negative); Ketones,Urine Negative (Negative); Leukocyte Esterase,Urine Negative (Negative); Nitrite,Urine Negative (Negative); PH, Urine 5.5 (5.0-8.0); Protein,Urine 1+ (Negative); RBC,Urine 1 /hpf (0-5); Specific Gravity,Urine 1.017 (1.001-1.035); Squamous Epithelial Cell,Urine 2 /hpf (0-4); Urobilinogen,Urine <2.0 mg/dL (<2.0); WBC,Urine 2 /hpf (0-5)
[2024-07-08 03:20] LABS: Anisocytosis Slight; Basophils % (A) 0 %; Eosinophils # (A) 0.3 k/uL (0-0.7); Eosinophils % (A) 3 %; HCT 39.4 % (34.0-46.0); HGB 12.6 gm/dL (11.4-16.0); Hypochromasia Slight; Lymphocytes # (A) 2.5 k/uL (1.0-4.8); Lymphocytes % (A) 27 %; MCHC 31.9 g/dL (31.0-37.0); MCV 81.7 fL (80.0-100.0); Mean Platelet Volume 7.7; Microcytosis Slight; Monocytes # (A) 0.6 k/uL (0-1.0); Monocytes % (A) 6 %; Neutrophils # (A) 5.6 k/uL (1.3-7.7); Neutrophils % (A) 62 %; Platelet Count 261 k/uL (150-450); RBC 4.83 m/uL (3.80-5.40); RDW 16.6 % (11.5-15.5); WBC 9.1 k/uL (3.8-10.6)
[2024-07-08] MEDS: SODIUM CHLORIDE 0.9% 1,000 ML IV SCH (03:32)
[2024-07-08] MEDS: CYCLOBENZAPRINE 5 MG TAB PO STA (03:32)
[2024-07-08] MEDS: ACETAMINOPHEN TAB 325 MG TAB PO STA (03:32)
[2024-07-08] MEDS: LIDOCAINE 4% PATCH TOPICAL ONE (03:34)
[2024-07-08] MEDS: KETOROLAC 15 MG/ML 1 ML VIAL IM STA (03:34)
[2024-07-08 03:49] LABS: ALT 21 U/L (4-34); AST 26 U/L (14-36); African American GFR (CKD) >90 (>60 ml/min/1.73 sqM); Albumin 3.6 g/dL (3.5-5.0); Alkaline Phosphatase 122 U/L (38-126); Anion Gap 13 mmol/L; Blood Urea Nitrogen 15 mg/dL (7-17); Carbon Dioxide 16 mmol/L (22-30); Chloride 97 mmol/L (98-107); Glucose 414 mg/dL (74-99); Non-African American GFR(CKD) >90 (>60 ml/min/1.73 sqM); Potassium 4.8 mmol/L (3.5-5.1); Sodium 126 mmol/L (137-145); Total Bilirubin 0.5 mg/dL (0.2-1.3); Total Protein 6.5 g/dL (6.3-8.2)
[2024-07-08 04:01] LABS: Influenza A Not Detected (Not Detectd); Influenza B Not Detected (Not Detectd); RSV Not Detected (Not Detectd)
[2024-07-08 06:02] VITALS: BP 102/82; PULSE 48; RESP 17
== END 2024-07-08 06:08 | disposition home or self-care (01) ==
LOC: EC 01:22
DX: G89.29 Other chronic pain (principal); M54.50 Low back pain, unspecified; E11.65 Type 2 diabetes mellitus with hyperglycemia; E87.1 Hypo-osmolality and hyponatremia; F17.290 Nicotine dependence, other tobacco product, uncomplicated; Z79.84 Long term (current) use of oral hypoglycemic drugs; Z79.4 Long term (current) use of insulin; Z88.1 Allergy status to other antibiotic agents; Z11.52 Encounter for screening for COVID-19
CPT/HCPCS: 36415; 80053; 82009; 85025; 81001; 87636; 99284; 96360; 96361; 96372; J1885

== ENCOUNTER 2024-07-08 15:07 | Emergency (ER) | payer MEDICARE ==
[2024-07-08] MEDS: SODIUM CHLORIDE 0.9% 1,000 ML IV ONE (15:34)
[2024-07-08] MEDS: ONDANSETRON 4 MG/2 ML VIAL IVP STA (15:36)
[2024-07-08] MEDS: KETOROLAC 15 MG/ML 1 ML VIAL IVP STA (15:37)
[2024-07-08] MEDS: PANTOPRAZOLE 40 MG/10 ML VIAL IVP STA (15:40)
[2024-07-08 15:51] LABS: Anisocytosis Slight; Basophils # (A) 0.1 k/uL (0-0.2); Basophils % (A) 1 %; Eosinophils # (A) 0.3 k/uL (0-0.7); Eosinophils % (A) 4 %; HCT 39.9 % (34.0-46.0); HGB 12.3 gm/dL (11.4-16.0); Lymphocytes # (A) 2.6 k/uL (1.0-4.8); Lymphocytes % (A) 32 %; MCH 25.2 pg (25.0-35.0); MCHC 30.7 g/dL (31.0-37.0); MCV 82.1 fL (80.0-100.0); Mean Platelet Volume 7.7; Microcytosis Slight; Monocytes # (A) 0.3 k/uL (0-1.0); Monocytes % (A) 4 %; Neutrophils # (A) 4.6 k/uL (1.3-7.7); Neutrophils % (A) 58 %; Platelet Count 467 k/uL (150-450); RBC 4.86 m/uL (3.80-5.40); RDW 16.6 % (11.5-15.5)
[2024-07-08 16:03] LABS: ALT 20 U/L (4-34); AST 23 U/L (14-36); African American GFR (CKD) >90 (>60 ml/min/1.73 sqM); Albumin 3.5 g/dL (3.5-5.0); Alkaline Phosphatase 112 U/L (38-126); Amylase 39 U/L (30-110); Anion Gap 7 mmol/L; Blood Urea Nitrogen 11 mg/dL (7-17); Carbon Dioxide 23 mmol/L (22-30); Chloride 100 mmol/L (98-107); Glucose 278 mg/dL (74-99); Lipase 109 U/L (23-300); Non-African American GFR(CKD) >90 (>60 ml/min/1.73 sqM); Potassium 4.7 mmol/L (3.5-5.1); Sodium 130 mmol/L (137-145); Total Bilirubin 0.6 mg/dL (0.2-1.3); Total Protein 6.4 g/dL (6.3-8.2)
[2024-07-08 16:34] LABS: Appearance,Urine Clear (Clear); Bilirubin,Urine Negative (Negative); Blood,Urine Negative (Negative); Color,Urine Colorless; Glucose,Urine (UA) 2+ (Negative); Ketones,Urine Negative (Negative); Leukocyte Esterase,Urine Negative (Negative); Nitrite,Urine Negative (Negative); Protein,Urine 2+ (Negative); Squamous Epithelial Cell,Urine 1 /hpf (0-4); Urobilinogen,Urine <2.0 mg/dL (<2.0); WBC,Urine <1 /hpf (0-5)
--- NOTE | 2024-07-08 16:53 | ED ---
General Adult HPI - General Chief complaint: Nausea/Vomiting/Diarrhea Stated complaint: pain Time Seen by Provider: 07/08/24 15:08 Source: patient, EMS, RN notes reviewed, old records reviewed Mode of arrival: EMS Limitations: no limitations - History of Present Illness Initial comments: Patient is a 53-year-old female who presents emergency department complaining of diarrhea, chronic body pain. Patient is a regular visitor to emergency dep artment and was just discharged with identical symptoms earlier today. He has no other acute complaints at this time. The symptoms are relatively chronic. Denies any chest pain or abdominal pain. Does endorse generalized bodyaches. Endorses chronic cough. Denies any fevers or chills. Denies any nausea or vomiting. Primarily here due to the diarrhea and bodyaches. Presents for further evaluation at this time. Is a known diabetic. - Related Data Home Medications Medication Instructions Recorded Confirmed Atorvastatin [Lipitor] 80 mg PO HS 06/25/19 06/13/24 lisinopriL 40 mg PO DAILY 09/24/20 06/13/24 traZODone HCL 50 mg PO HS 01/11/21 06/13/24 Albuterol Inhaler [Ventolin Hfa 2 puff INHALATION RT-QID PRN 03/01/23 06/13/24 Inhaler] Insulin Glargine,Hum.rec.anlog 30 units SQ HS 07/30/23 06/13/24 [Lantus Solostar Pen] Ezetimibe [Zetia] 10 mg PO HS 02/17/24 06/13/24 Insulin Aspart (Niacinamide) 20 units SQ AC-TID 02/17/24 06/13/24 [Fiasp 100 Unit/ml Flextouch Pen] Nystatin 100,000 Unit/gm Powd 1 applic TOPICAL BID PRN 02/17/24 06/13/24 [Mycostatin Powder] Pantoprazole [Protonix] 40 mg PO DAILY 02/17/24 06/13/24 metFORMIN HCL 1,000 mg PO BID 06/13/24 06/13/24 Previous Rx's Medication Instructions Recorded amLODIPine [Norvasc] 10 mg PO DAILY #30 tab 03/11/23 hydrALAZINE HCL [Apresoline] 25 mg PO BID #60 tab 03/11/23 Ondansetron Odt [Zofran ODT] 4 mg PO Q8HR PRN #10 tab 03/29/24 Ibuprofen [Motrin] 600 mg PO Q8HR PRN 30 Days #30 tab 04/11/24 Famotidine [Pepcid] 20 mg PO DAILY #20 tablet 04/18/24 Ipratropium [place] 0.06%Nasal 2 spray EA NOSTRIL BID #15 ml 06/07/24 [Atrovent Nasal 0.06%] Ondansetron Odt [Zofran Odt] 4 mg PO Q8HR PRN #10 tab 06/19/24 Acetaminophen-Codeine 300-30mg 1 tab PO Q4H PRN #10 tablet 06/30/24 [Tylenol w/codeine #3] Allergies Allergy/AdvReac Type Severity Reaction Status Date / Time levofloxacin [From Levaquin] Allergy Rash/Hives Verified 07/05/24 11:38 Review of Systems ROS Statement: Those systems with pertinent positive or pertinent negative responses have been documented in the HPI. Review of Systems: CONST: Denies fever EYES: Denies blurry vision ENT: Denies nasal congestion C/V: Denies Chest pain RESP: Denies shortness of breath GI: Denies abdominal pain : Denies dysuria SKIN: Denies rash. MSK: Endorses chronic generalized body pain NEURO: Denies headache ROS Other: All systems not noted in ROS Statement are negative. Past Medical History Past Medical History: Diabetes Mellitus, GERD/Reflux, Hyperlipidemia, Hypertension, Syncope Additional Past Medical History / Comment(s): Pt recently admitted to [facility] on 07/21/21 with uncontrolled IDDM and hyperkalemia. Other hx: Recurrent pancreatitis, hypertriglyceridemia, elevated lipase, IDDM type II, UTI, chronic low back pain, bulging discs, dental abscesses in past. History of Any Multi-Drug Resistant Organisms: MRSA Date of last positivie culture/infection: 03/01/23 MDRO Source:: Abdomen Past Surgical History: Tubal Ligation Additional Past Surgical History / Comment(s): Age 7 had VSD repair, tumor removal 03/2023 Past Anesthesia/Blood Transfusion Reactions: No Reported Reaction Past Psychological History: No Psychological Hx Reported Smoking Status: Former smoker, Second hand smoke exposure, Vaper Past Alcohol Use History: None Reported Past Drug Use History: None Reported - Past Family History Mother Family Medical History: No Reported History Additional Family Medical History / Comment(s): Mother was healthy. She is , pt cannot recall cause of . Father Family Medical History: Pneumonia Additional Family Medical History / Comment(s): Father at the age of 67yrs from pneumonia General Exam - General Exam Comments Initial Comments: General: Appears in no acute distress. HEAD: Normal with no signs of head trauma. EYES: PERRLA, EOMI, conjunctiva normal, no discharge. ENT: Hearing grossly intact, normal oropharynx. Moist mucous membranes. RESPIRATORY: Clear breath sounds bilaterally. No wheezes, rales, or rhonchi. C/V: Regular rate and rhythm. S1 and S2 auscultated, no edema, peripheral pulses 2+ and intact throughout ABD: Abd is soft, nontender, nondistended EXT: Normal range of motion, no obvious deformity SKIN: No rashes or lesions observed on exposed skin. NEURO: Alert and oriented x 4. No focal deficits. Limitations: no limitations Course Vital Signs 07/08/24 15:11 Temperature 98.6 F Pulse Rate 53 L Respiratory 19 Rate Blood Pressure 176/87 O2 Sat by Pulse 100 Oximetry Medical Decision Making - Medical Decision Making Was pt. sent in by a medical professional or institution (, PA, FITTINGS FINISHER, urgent care, hospital, or snf...) When possible be specific @ -No Did you speak to anyone other than the patient for history (EMS, parent, family, police, friend...)? What history was obtained from this source @ -No Did you review nursing and triage notes (agree or disagree)? Why? @ -I reviewed and agree with nursing and triage notes Were old charts reviewed (outside hosp., previous admission, EMS record, old EKG, old radiological studies, urgent care reports/EKG's, snf records)? Report findings @ -Reviewed laboratory studies from visit from earlier today. Mild hyponatremia which is somewhat chronic for her. No other obvious acute findings earlier today. Differential Diagnosis (chest pain, altered mental status, abdominal pain women, abdominal pain men, vaginal bleeding, weakness, fever, dyspnea, syncope, headache, dizziness, GI bleed, back pain, seizure, CVA, palpatations, mental health, musculoskeletal)? @ -Chronic pain, viral syndrome, dehydration, hyperglycemia. This list is not all inclusive. EKG interpreted by me (3pts min.). @ -As above X-rays interpreted by me (1pt min.). @ -None done CT interpreted by me (1pt min.). @ -None done U/S interpreted by me (1pt. min.). @ -None done What testing was considered but not performed or refused? (CT, X-rays, U/S, labs)? Why? @ -None What meds were considered but not given or refused? Why? @ -None Did you discuss the management of the patient with other professionals (darek walls i.eShayan Flaherty, PA, FITTINGS FINISHER, lab, RT, psych nurse, social services assistant, non destructive evaluation specialist, teacher, service officer, manager of case management)? Give summary @ -No Was smoking cessation discussed for >3mins.? @ -No Was critical care preformed (if so, how long)? @ -No Were there social determinants of health that impacted care today? How? (Homelessness, low income, unemployed, alcoholism, drug addiction, transportation, low edu. Level, literacy, decrease access to med. care, alf, rehab)? @ -No Was there de-escalation of care discussed even if they declined (Discuss DNR or withdrawal of care, Hospice)? DNR status @ -No What co-morbidities impacted this encounter? (DM, HTN, Smoking, COPD, CAD, Cancer, CVA, ARF, Chemo, Hep., AIDS, mental health diagnosis, sleep apnea, morbid obesity)? @ -Chronic cough, chronic hyperglycemia in the setting of diabetes, chronic pain Was patient admitted / discharged? Hospital course, mention meds given and route, prescriptions, significant lab abnormalities, going to OR and other perti nent info. @ -Patient presents with acute on chronic symptoms. Also has diarrhea. Will repeat laboratory studies and provide the patient with IV Toradol, Zofran, fluids, Protonix. We will obtain abdominal labs. No imaging indicated at this time. She was in agreement this plan. Laboratory studies returned all within acceptable limits. Mild hyperglycemia of 278 but this is good for the patient. No evidence of DKA. After the patient. She is feeling improved. She will be discharged at this time. Strict return precautions discussed. Discussed diet as well as reasons to return to the ER. She was in agreement this plan. I will provide the patient with a prescription for ODT Zofran. I instructed the patient to follow up with their PCP in the next 1-3 days.. I explained that the patient should return to the emergency department if they experience any worsening symptoms. Strict return precautions were discussed with the patient. The patient expressed understanding of these instructions. I answered all questions that the patient had. The patient was discharged home in good cond ition with their prescriptions and follow up information. Undiagnosed new problem with uncertain prognosis? @ -No Drug Therapy requiring intensive monitoring for toxicity (Heparin, Nitro, Insulin, Cardizem)? @ -No Were any procedures done? @ -No Diagnosis/symptom? @ -Chronic pain, diarrhea Acute, or Chronic, or Acute on Chronic? @ -Acute on chronic Uncomplicated (without systemic symptoms) or Complicated (systemic symptoms)? @ -Uncomplicated Side effects of treatment? @ -No Exacerbation, Progression, or Severe Exacerbation? @ -No Poses a threat to life or bodily function? How? (Chest pain, [place], [place], pneumonia, PE, COPD, DKA, ARF, appy, cholecystitis, CVA, Diverticulitis, Homicidal, [place] icidal, threat to staff... and all critical care pts) @ -Unlikely at this time - Lab Data Result diagrams: 07/08/24 15:33 07/08/24 15:33 Lab Results 07/08/24 07/08/24 07/08/24 Range/Units 15:33 15:33 16:25 WBC 8.0 (3.8-10.6) k/uL RBC 4.86 (3.80-5.40) m/uL Hgb 12.3 (11.4-16.0) gm/dL Hct 39.9 (34.0-46.0) % MCV 82.1 (80.0-100.0) fL MCH 25.2 (25.0-35.0) pg MCHC 30.7 L (31.0-37.0) g/dL RDW 16.6 H (11.5-15.5) % Plt Count 467 H (150-450) k/uL MPV 7.7 Neutrophils % 58 % Lymphocytes % 32 % Monocytes % 4 % Eosinophils % 4 % Basophils % 1 % Neutrophils # 4.6 (1.3-7.7) k/uL Lymphocytes # 2.6 (1.0-4.8) k/uL Monocytes # 0.3 (0-1.0) k/uL Eosinophils # 0.3 (0-0.7) k/uL Basophils # 0.1 (0-0.2) k/uL Anisocytosis Slight Microcytosis Slight Sodium 130 L (137-145) mmol/L Potassium 4.7 (3.5-5.1) mmol/L Chloride 100 (98-107) mmol/L Carbon Dioxide 23 (22-30) mmol/L Anion Gap 7 mmol/L BUN 11 (7-17) mg/dL Creatinine 0.51 L (0.52-1.04) mg/dL Est GFR (CKD-EPI)AfAm >90 (>60 ml/min/1.73 sqM) Est GFR (CKD-EPI)NonAf >90 (>60 ml/min/1.73 sqM) Glucose 278 H (74-99) mg/dL Calcium 9.0 (8.4-10.2) mg/dL Total Bilirubin 0.6 (0.2-1.3) mg/dL AST 23 (14-36) U/L ALT 20 (4-34) U/L Alkaline Phosphatase 112 (38-126) U/L Total Protein 6.4 (6.3-8.2) g/dL Albumin 3.5 (3.5-5.0) g/dL Amylase 39 (30-110) U/L Lipase 109 (23-300) U/L Urine Color Colorless Urine Appearance Clear (Clear) Urine pH 6.0 (5.0-8.0) Ur Specific [place] 1.010 (1.001-1.035) Urine Protein 2+ H (Negative) Urine Glucose (UA) 2+ H (Negative) Urine Ketones Negative (Negative) Urine Blood Negative (Negative) Urine Nitrite Negative (Negative) Urine Bilirubin Negative (Negative) Urine Urobilinogen <2.0 (<2.0) mg/dL Ur Leukocyte Esterase Negative (Negative) Urine WBC <1 (0-5) /hpf Ur Squamous Epith Cells 1 (0-4) /hpf Acetone, Qual Negative (Negative) - EKG Data -: EKG Interpreted by Me EKG Comments: 12-lead Electrocardiogram Interpretation Note EKG was reviewed and interpreted by myself. 12-lead ECG performed at 1537 is interpreted by me as revealing sinus bradycardia at a rate of 58 beats per minute. [place] is normal. NH interval is 149 ms, QRS durations 86 ms, QTc is 407 ms.. There were no ST or T wave abnormalities to suggest myocardial ischemia or injury. R wave progression across the precordium was satisfactory. By my interpretation this EKG is non-diagnostic for acute ischemia. Disposition Clinical Impression: Chronic pain, Diarrhea Disposition: HOME SELF-CARE Condition: Good Instructions (If sedation given, give patient instructions): Acute Diarrhea (ED) Additional Instructions: Follow-up with your PCP in the next 1 to 3 days. Stick to a bland diet. No fried or fatty foods. Return if any worsening symptoms or concerns. Is patient prescribed a controlled substance at d/c from ED?: No Referrals: None,Stated [Primary Care Provider] - 1-2 days Forms: Area PCPs Time of Disposition: 16:52
[2024-07-08] MEDS: ONDANSETRON 4 MG ODT STARTER PACK 2 TAB BTL PO STA (17:10)
[2024-07-08 17:13] VITALS: BP 117/98; PULSE 62; RESP 20; TEMP 98.2
[2024-07-08] MEDS: ACETAMINOPHEN TAB 325 MG TAB PO STA (17:30)
== END 2024-07-08 17:32 | disposition home or self-care (01) ==
LOC: EC 15:07
DX: G89.29 Other chronic pain (principal); R19.7 Diarrhea, unspecified; R00.1 Bradycardia, unspecified; R05.3 Chronic cough; E11.65 Type 2 diabetes mellitus with hyperglycemia; F17.290 Nicotine dependence, other tobacco product, uncomplicated; Z79.4 Long term (current) use of insulin; Z79.84 Long term (current) use of oral hypoglycemic drugs; Z88.1 Allergy status to other antibiotic agents
CPT/HCPCS: 96374; 96375 ×2; 96361; 36415; 93005; 80053; 82150; 82009; 83690; 85025; 81001; 99285; J2405; J1885; S0119; J2470

== ENCOUNTER 2024-07-09 02:02 | Emergency (ER) | payer MEDICARE ==
--- NOTE | 2024-07-09 02:09 | ED ---
General Adult HPI - General Chief complaint: Recheck/Abnormal Lab/Rx Stated complaint: pain Time Seen by Provider: 07/09/24 02:05 Source: patient, EMS Mode of arrival: EMS - History of Present Illness Initial comments: Patient is a 53 y/o female well known to our emergency department presenting today for chronic pain. States that it is the same as the pain that she has come into the ER for before. Unchanged. Denies new symptoms. She has not trialed any medications for the pain. States she is here because the pain makes it so that she cannot sleep. No new trauma or falls. - Related Data Home Medications Medication Instructions Recorded Confirmed Atorvastatin [Lipitor] 80 mg PO HS 06/25/19 06/13/24 lisinopriL 40 mg PO DAILY 09/24/20 06/13/24 traZODone HCL 50 mg PO HS 01/11/21 06/13/24 Albuterol Inhaler [Ventolin Hfa 2 puff INHALATION RT-QID PRN 03/01/23 06/13/24 Inhaler] Insulin Glargine,Hum.rec.anlog 30 units SQ HS 07/30/23 06/13/24 [Lantus Solostar Pen] Ezetimibe [Zetia] 10 mg PO HS 02/17/24 06/13/24 Insulin Aspart (Niacinamide) 20 units SQ AC-TID 02/17/24 06/13/24 [Fiasp 100 Unit/ml Flextouch Pen] Nystatin 100,000 Unit/gm Powd 1 applic TOPICAL BID PRN 02/17/24 06/13/24 [Mycostatin Powder] Pantoprazole [Protonix] 40 mg PO DAILY 02/17/24 06/13/24 metFORMIN HCL 1,000 mg PO BID 06/13/24 06/13/24 Previous Rx's Medication Instructions Recorded amLODIPine [Norvasc] 10 mg PO DAILY #30 tab 03/11/23 hydrALAZINE HCL [Apresoline] 25 mg PO BID #60 tab 03/11/23 Ondansetron Odt [Zofran ODT] 4 mg PO Q8HR PRN #10 tab 03/29/24 Ibuprofen [Motrin] 600 mg PO Q8HR PRN 30 Days #30 tab 04/11/24 Famotidine [Pepcid] 20 mg PO DAILY #20 tablet 04/18/24 Ipratropium [place] 0.06%Nasal 2 spray EA NOSTRIL BID #15 ml 06/07/24 [Atrovent Nasal 0.06%] Ondansetron Odt [Zofran Odt] 4 mg PO Q8HR PRN #10 tab 06/19/24 Acetaminophen-Codeine 300-30mg 1 tab PO Q4H PRN #10 tablet 06/30/24 [Tylenol w/codeine #3] Allergies Allergy/AdvReac Type Severity Reaction Status Date / Time levofloxacin [From Levaquin] Allergy Rash/Hives Verified 07/09/24 02:05 Review of Systems ROS Statement: Those systems with pertinent positive or pertinent negative responses have been documented in the HPI. ROS Other: All systems not noted in ROS Statement are negative. Past Medical History Past Medical History: Diabetes Mellitus, GERD/Reflux, Hyperlipidemia, Hypertension, Syncope Additional Past Medical History / Comment(s): Pt recently admitted to [facility] on 07/21/21 with uncontrolled IDDM and hyperkalemia. Other hx: Recurrent pancreatitis, hypertriglyceridemia, elevated lipase, IDDM type II, UTI, chronic low back pain, bulging discs, dental abscesses in past. History of Any Multi-Drug Resistant Organisms: MRSA Date of last positivie culture/infection: 03/01/23 MDRO Source:: Abdomen Past Surgical History: Tubal Ligation Additional Past Surgical History / Comment(s): Age 7 had VSD repair, tumor removal 03/2023 Past Anesthesia/Blood Transfusion Reactions: No Reported Reaction Past Psychological History: No Psychological Hx Reported Smoking Status: Former smoker, Second hand smoke exposure, Vaper Past Alcohol Use History: None Reported Past Drug Use History: None Reported - Past Family History Mother Family Medical History: No Reported History Additional Family Medical History / Comment(s): Mother was healthy. She is , pt cannot recall cause of . Father Family Medical History: Pneumonia Additional Family Medical History / Comment(s): Father at the age of 67yrs from pneumonia General Exam - General Exam Comments Initial Comments: PE: CONSTITUTIONAL: No apparent distress, well appearing SKIN: Warm, dry, no jaundice, hives or petechiae EYES: Pupils are equally round, extraocular movements intact without nystagmus, clear conjunctiva, non-icteric sclera HENT: Normocephalic, atraumatic, moist mucus membranes, oropharynx clear without exudates NECK: , Full range of motion, normal appearance PULMONARY: Clear to auscultation without wheezes, rhonchi, or rales, normal excursion, no accessory muscle use and no stridor CARDIOVASCULAR: Regular rate, rhythm, normal S1 and S2. No appreciated murmurs, rubs or gallops. Strong radial pulses with intact distal perfusion. No lower extremity edema GASTROINTESTINAL: Soft, active bowel sounds throughout, non-tender, non- distended, no palpable masses, no rebound or guarding. No hepatosplenomegaly MUSCULOSKELETAL: Extremities have no gross deformity, no edema, redness, or swelling. NEUROLOGIC:_a/o x 3, GCS 15, normal mentation and speech. Moves all extremities x 4 without motor or sensory deficit PSYCHIATRIC:_normal mood and affect, thought process is clear and linear Course Vital Signs 07/09/24 02:03 Temperature 98.7 F Pulse Rate 56 L Respiratory 18 Rate Blood Pressure 182/92 O2 Sat by Pulse 99 Oximetry Medical Decision Making - Medical Decision Making Was pt. sent in by a medical professional or institution (, PA, NEURODIAGNOSTIC TECHNOLOGIST, urgent care, hospital, or detention...) When possible be specific @ -No Did you speak to anyone other than the patient for history (EMS, parent, family, police, friend...)? What history was obtained from this source @ -No Did you review nursing and triage notes (agree or disagree)? Why? @ -I reviewed nursing and triage notes Were old charts reviewed (outside hosp., previous admission, EMS record, old EKG, old radiological studies, urgent care reports/EKG's, detention records)? Report findings @ -Medical records reviewed-patient was seen in emergency department here yesterday afternoon around 3 PM for chronic body pain and diarrhea, and again prior to that by myself yesterday morning. labs were drawn both times which were significant for hyperglycemia but no evidence of DKA. Differential Diagnosis (chest pain, altered mental status, abdominal pain women, abdominal pain men, vaginal bleeding, weakness, fever, dyspnea, syncope, headache, dizziness, GI bleed, back pain, seizure, CVA, palpatations, mental health, musculoskeletal)? @ -Differential Musculoskeletal Muscular strain, contusion, ligament sprain, arthritis, cellulitis, muscle spasm, malingering... This is not meant to be in all inclusive list EKG interpreted by me (3pts min.). @ -As above X-rays interpreted by me (1pt min.). @ -None done CT interpreted by me (1pt min.). @ -None done U/S interpreted by me (1pt. min.). @ -None done What testing was considered but not performed or refused? (CT, X-rays, U/S, labs)? Why? @Basic labs were considered however patient has had 2 sets of labs drawn in the last 24 hours, here for unchanged chronic body pain, therefor do not feel recheck of labs is necessary at this pint What meds were considered but not given or refused? Why? @ -None Did you discuss the management of the patient with other professionals (professionals i.e. , PA, NEURODIAGNOSTIC TECHNOLOGIST, lab, RT, psych nurse, social services director, concrete batcher, teacher, operations officer trust department, case management coordinator)? Give summary @ -No Was smoking cessation discussed for >3mins.? @ -No Was critical care preformed (if so, how long)? @ -No Were there social determinants of health that impacted care today? How? (Homelessness, low income, unemployed, alcoholism, drug addiction, transportation, low edu. Level, literacy, decrease access to med. care, [facility], rehab)? @ -No Was there de-escalation of care discussed even if they declined (Discuss DNR or withdrawal of care, Hospice)? @ -No What co-morbidities impacted this encounter? (DM, HTN, Smoking, COPD, CAD, Cancer, CVA, ARF, Chemo, Hep., AIDS, mental health diagnosis, sleep apnea, morbid obesity)? @Diabetes, hypertension Was patient admitted / discharged? Hospital course, mention meds given and route, prescriptions, significant lab abnormalities, going to OR and other pertinent info. @Discharged-his is a 53-year-old female with a past with a history of diabetes hypertension well-known to this emergency department presenting today for chronic body pain. On my assessment she is resting comfortably no acute distr ess. She appears as she did when I saw her yesterday morning less than 24 hours ago. She is hypertensive on arrival but otherwise vital signs within normal limits. She denies new symptoms. Will administer Tylenol, ibuprofen for chronic body aches as well as Benadryl to help the patient sleep. She will be discharged home for outpatient follow-up. In my medical judgment there is currently no evidence of an immediate life- threatening or surgical condition. Discharge is therefore indicated at this time. Discharge treatment instructions, follow up instructions, and appropriate emergency department return precautions were provided to the patient and/or medical decision maker. Undiagnosed new problem with uncertain prognosis? @ -No Drug Therapy requiring intensive monitoring for toxicity (Heparin, Nitro, Insulin, Cardizem)? @ -No Were any procedures done? @ -No Diagnosis/symptom? @Chronic pain Acute, or Chronic, or Acute on Chronic? chronic Uncomplicated (without systemic symptoms) or Complicated (systemic symptoms)? @uncomplicated Side effects of treatment? @ -No Exacerbation, Progression, or Severe Exacerbation? @ -No Poses a threat to life or bodily function? How? (Chest pain, [place], [place], pneumonia, PE, COPD, DKA, ARF, appy, cholecystitis, CVA, Diverticulitis, Homicidal, Suicidal, threat to staff... and all critical care pts) @ -No Disposition Clinical Impression: Chronic pain Disposition: HOME SELF-CARE Condition: Stable Instructions (If sedation given, give patient instructions): Chronic Pain (ED) Additional Instructions: Every disease is a spectrum and a small chance still exists that a serious condition could develop, for this reason, please monitor yourself closely for new, changing or worsening symptoms, chest pain, difficulty in breathing, fever, inability to tolerate/keep down fluids or your medications, inability to follow up with outpatient providers as instructed and should you experience these symptoms or should you have any further concerns for your wellbeing please return to the ED or call 911 immediately. Please take your medications as prescribed. Please trial the medications listed below for chronic pain and follow up with your PCP for recheck and terminal makeup operator pain management. PLEASE call your primary care physician as soon as possible to arrange / discuss plan for followup appointment. Appointment in the next 1-3 days is strongly encouraged if possible. PLEASE let us know here before you leave if there is anything further we can do to be of any assistance. Take care and feel Better! Is patient prescribed a controlled substance at d/c from ED?: No Referrals: Ronel Manzano MD [Primary Care Provider] - 1-2 days
[2024-07-09 02:13] VITALS: BP 182/92; PULSE 56; RESP 18; TEMP 98.7
[2024-07-09] MEDS: ACETAMINOPHEN TAB 500 MG TAB PO STA (02:14)
[2024-07-09] MEDS: diphenhydrAMINE 50 MG CAP PO STA (02:14)
[2024-07-09] MEDS: IBUPROFEN 400 MG TAB PO STA (02:15)
== END 2024-07-09 02:12 | disposition home or self-care (01) ==
LOC: EC 02:02
DX: G89.29 Other chronic pain (principal); E11.9 Type 2 diabetes mellitus without complications; I10 Essential (primary) hypertension; F17.290 Nicotine dependence, other tobacco product, uncomplicated; Z88.1 Allergy status to other antibiotic agents
CPT/HCPCS: 99284

== ENCOUNTER 2024-07-09 06:58 | Emergency (ER) | payer MEDICARE ==
[2024-07-09 07:01] VITALS: BP 153/79; PULSE 62; RESP 18; TEMP 98.2
--- NOTE | 2024-07-09 07:01 | ED ---
General Adult HPI - General Stated complaint: pain Time Seen by Provider: 07/09/24 06:59 Source: patient, EMS, RN notes reviewed Mode of arrival: EMS Limitations: no limitations - History of Present Illness Initial comments: 53-year-old female presents emergency department with chief complaint of pain. This is a chronic condition she has no acute injuries. Patient was seen here earlier today for the same complaint and multiple signs this last several months. Patient denies chest pain shortness of breath headache or dizziness. Patient states she is has chronic joint pain all over and she does not try taking anything [id number]. - Related Data Home Medications Medication Instructions Recorded Confirmed Atorvastatin [Lipitor] 80 mg PO HS 06/25/19 06/13/24 lisinopriL 40 mg PO DAILY 09/24/20 06/13/24 traZODone HCL 50 mg PO HS 01/11/21 06/13/24 Albuterol Inhaler [Ventolin Hfa 2 puff INHALATION RT-QID PRN 03/01/23 06/13/24 Inhaler] Insulin Glargine,Hum.rec.anlog 30 units SQ HS 07/30/23 06/13/24 [Lantus Solostar Pen] Ezetimibe [Zetia] 10 mg PO HS 02/17/24 06/13/24 Insulin Aspart (Niacinamide) 20 units SQ AC-TID 02/17/24 06/13/24 [Fiasp 100 Unit/ml Flextouch Pen] Nystatin 100,000 Unit/gm Powd 1 applic TOPICAL BID PRN 02/17/24 06/13/24 [Mycostatin Powder] Pantoprazole [Protonix] 40 mg PO DAILY 02/17/24 06/13/24 metFORMIN HCL 1,000 mg PO BID 06/13/24 06/13/24 Previous Rx's Medication Instructions Recorded amLODIPine [Norvasc] 10 mg PO DAILY #30 tab 03/11/23 hydrALAZINE HCL [Apresoline] 25 mg PO BID #60 tab 03/11/23 Ondansetron Odt [Zofran ODT] 4 mg PO Q8HR PRN #10 tab 03/29/24 Ibuprofen [Motrin] 600 mg PO Q8HR PRN 30 Days #30 tab 04/11/24 Famotidine [Pepcid] 20 mg PO DAILY #20 tablet 04/18/24 Ipratropium [place] 0.06%Nasal 2 spray EA NOSTRIL BID #15 ml 06/07/24 [Atrovent Nasal 0.06%] Ondansetron Odt [Zofran Odt] 4 mg PO Q8HR PRN #10 tab 06/19/24 Acetaminophen-Codeine 300-30mg 1 tab PO Q4H PRN #10 tablet 06/30/24 [Tylenol w/codeine #3] Allergies Allergy/AdvReac Type Severity Reaction Status Date / Time levofloxacin [From Levaquin] Allergy Rash/Hives Verified 07/09/24 07:01 Review of Systems ROS Statement: Those systems with pertinent positive or pertinent negative responses have been documented in the HPI. ROS Other: All systems not noted in ROS Statement are negative. Past Medical History Past Medical History: Diabetes Mellitus, GERD/Reflux, Hyperlipidemia, Hypertension, Syncope Additional Past Medical History / Comment(s): Pt recently admitted to [facility] on 07/21/21 with uncontrolled IDDM and hyperkalemia. Other hx: Recurrent pancreatitis, hypertriglyceridemia, elevated lipase, IDDM type II, UTI, chronic low back pain, bulging discs, dental abscesses in past. History of Any Multi-Drug Resistant Organisms: MRSA Date of last positivie culture/infection: 03/01/23 MDRO Source:: Abdomen Past Surgical History: Tubal Ligation Additional Past Surgical History / Comment(s): Age 7 had VSD repair, tumor removal 03/2023 Past Anesthesia/Blood Transfusion Reactions: No Reported Reaction Past Psychological History: No Psychological Hx Reported Smoking Status: Former smoker, Second hand smoke exposure, Vaper Past Alcohol Use History: None Reported Past Drug Use History: None Reported - Past Family History Mother Family Medical History: No Reported History Additional Family Medical History / Comment(s): Mother was healthy. She is , pt cannot recall cause of . Father Family Medical History: Pneumonia Additional Family Medical History / Comment(s): Father at the age of 67yrs from pneumonia General Exam General appearance: alert, in no apparent distress Head exam: Present: atraumatic, normocephalic, normal inspection Eye exam: Present: normal appearance, PERRL, EOMI. Absent: scleral icterus, conjunctival injection, periorbital swelling ENT exam: Present: normal exam, normal oropharynx, mucous membranes moist Neck exam: Present: normal inspection, full ROM. Absent: tenderness, meningi smus, lymphadenopathy Respiratory exam: Present: normal lung sounds bilaterally. Absent: respiratory distress, wheezes, rales, rhonchi, stridor Cardiovascular Exam: Present: regular rate, normal rhythm, normal heart sounds. Absent: systolic murmur, diastolic murmur, rubs, gallop, clicks Course Vital Signs 07/09/24 06:59 Temperature 98.2 F Pulse Rate 62 Respiratory 18 Rate Blood Pressure 153/79 O2 Sat by Pulse 97 Oximetry Medical Decision Making - Medical Decision Making Was pt. sent in by a medical professional or institution (, PA, RADIOLOGY SCHEDULER, urgent care, hospital, or [place] health care facility...) When possible be specific @ -No Did you speak to anyone other than the patient for history (EMS, parent, family, police, friend...)? What history was obtained from this source @ -No Did you review nursing and triage notes (agree or disagree)? Why? @ -I reviewed and agree with nursing and triage notes Were old charts reviewed (outside hosp., previous admission, EMS record, old EKG, old radiological studies, urgent care reports/EKG's, [place] health care facility records)? Report findings @ -Reviewed prior ER records, laboratory studies, imaging Differential Diagnosis (chest pain, altered mental status, abdominal pain women, abdominal pain men, vaginal bleeding, weakness, fever, dyspnea, syncope, headache, dizziness, GI bleed, back pain, seizure, CVA, palpatations, mental health, musculoskeletal)? @ -Differential Musculoskeletal Muscular strain, contusion, ligament sprain, fracture, arthritis, septic arthritis, bursitis, cellulitis, muscle spasm, nerve compression, DVT, arterial occlusion, herpes zoster, electrolyte abnormality, tumor.... This is not meant to be in all inclusive list EKG interpreted by me (3pts min.). @ -[None none X-rays interpreted by me (1pt min.). @ -None done CT interpreted by me (1pt min.). @ -None done U/S interpreted by me (1pt. min.). @ -None done What testing was considered but not performed or refused? (CT, X-rays, U/S, labs)? Why? @ -None What meds were considered but not given or refused? Why? @ -None Did you discuss the management of the patient with other professionals (professionals i.e. Dr., PA, RADIOLOGY SCHEDULER, lab, RT, psych nurse, social organization professor, nursing resident, teacher, banking services officer, nurse outreach case manager)? Give summary @ -No Was smoking cessation discussed for >3mins.? @ -No Was critical care preformed (if so, how long)? @ -No Were there social determinants of health that impacted care today? How? (Homelessness, low income, unemployed, alcoholism, drug addiction, transportation, low edu. Level, literacy, decrease access to med. care, nursing home, rehab)? @ -No Was there de-escalation of care discussed even if they declined (Discuss DNR or withdrawal of care, Hospice)? DNR status @ -No What co-morbidities impacted this encounter? (DM, HTN, Smoking, COPD, CAD, Cancer, CVA, ARF, Chemo, Hep., AIDS, mental health diagnosis, sleep apnea, morbid obesity)? @ -Diabetes, chronic pain Was patient admitted / discharged? Hospital course, mention meds given and route, prescriptions, significant lab abnormalities, going to OR and other pertinent info. @ -Discharge patient has no acute injuries she is complaining of chronic pain and has not attempt taking any [id number]. Patient advised that she needs to follow-up with her primary care physician discussed pain management and discussed that appropriate diet and exercise may help her conditions. Undiagnosed new problem with uncertain prognosis? @ -No Drug Therapy requiring intensive monitoring for toxicity (Heparin, Nitro, Insulin, Cardizem)? @ -No Were any procedures done? @ -No Diagnosis/symptom? @ -Chronic Acute, or Chronic, or Acute on Chronic? @ -[Chronic Uncomplicated (without systemic symptoms) or Complicated (systemic symptoms)? @ -Uncomplicated Side effects of treatment? @ -No Exacerbation, Progression, or Severe Exacerbation? @ -No Poses a threat to life or bodily function? How? (Chest pain, [place], [place], pneumonia, PE, COPD, DKA, ARF, appy, cholecystitis, CVA, Diverticulitis, Homicidal, Suicidal, threat to staff... and all critical care pts) @ -No Disposition Clinical Impression: Chronic pain Disposition: HOME SELF-CARE Condition: Stable Instructions (If sedation given, give patient instructions): Chronic Pain (ED) Additional Instructions: Please return to the Emergency Department if symptoms worsen or any other concerns. You must follow-up with your primary care physician for chronic pain meds. Is patient prescribed a controlled substance at d/c from ED?: No Referrals: Ronel Manzano MD [Primary Care Provider] - 1-2 days Time of Disposition: 07:01
== END 2024-07-09 07:13 | disposition home or self-care (01) ==
LOC: EC 06:58
DX: G89.29 Other chronic pain (principal); E11.9 Type 2 diabetes mellitus without complications; F17.290 Nicotine dependence, other tobacco product, uncomplicated; Z88.1 Allergy status to other antibiotic agents
CPT/HCPCS: 99284

== ENCOUNTER 2024-07-10 17:39 | Emergency (ER) | payer MEDICARE ==
[2024-07-10 17:45] VITALS: TEMP 98.5
[2024-07-10 17:52] LABS: Glucose,Whole Blood 483 mg/dL (70-110)
[2024-07-10] MEDS: SODIUM CHLORIDE 0.9% 1,000 ML IV ONE (18:31)
[2024-07-10 18:39] LABS: Anisocytosis Slight; Basophils % (A) 0 %; Eosinophils # (A) 0.3 k/uL (0-0.7); Eosinophils % (A) 4 %; HCT 40.2 % (34.0-46.0); HGB 12.7 gm/dL (11.4-16.0); Hypochromasia Slight; Lymphocytes # (A) 2.5 k/uL (1.0-4.8); Lymphocytes % (A) 28 %; MCH 26.2 pg (25.0-35.0); MCHC 31.6 g/dL (31.0-37.0); Mean Platelet Volume 6.8; Microcytosis Slight; Monocytes # (A) 0.4 k/uL (0-1.0); Monocytes % (A) 5 %; Neutrophils # (A) 5.6 k/uL (1.3-7.7); Neutrophils % (A) 62 %; Platelet Count 478 k/uL (150-450); RBC 4.84 m/uL (3.80-5.40); RDW 17.1 % (11.5-15.5)
[2024-07-10] MEDS: IPRATROPIUM-ALBUTEROL 3 ML NEB INHALATION STA (18:41)
[2024-07-10 18:51] LABS: ALT 18 U/L (4-34); AST 23 U/L (14-36); African American GFR (CKD) >90 (>60 ml/min/1.73 sqM); Albumin 3.7 g/dL (3.5-5.0); Alkaline Phosphatase 113 U/L (38-126); Anion Gap 12 mmol/L; Blood Urea Nitrogen 20 mg/dL (7-17); Calcium 9.2 mg/dL (8.4-10.2); Carbon Dioxide 21 mmol/L (22-30); Chloride 99 mmol/L (98-107); Magnesium 1.4 mg/dL (1.6-2.3); Non-African American GFR(CKD) 86 (>60 ml/min/1.73 sqM); Potassium 4.7 mmol/L (3.5-5.1); Sodium 132 mmol/L (137-145); Total Bilirubin 0.6 mg/dL (0.2-1.3); Total Protein 6.4 g/dL (6.3-8.2)
[2024-07-10 18:51] LABS: Appearance,Urine Cloudy (Clear); Bacteria,Urine Rare /hpf; Bilirubin,Urine Negative (Negative); Blood,Urine Negative (Negative); Color,Urine Colorless; Glucose,Urine (UA) 4+ (Negative); Ketones,Urine Negative (Negative); Leukocyte Esterase,Urine Negative (Negative); Nitrite,Urine Negative (Negative); PH, Urine 5.5 (5.0-8.0); Protein,Urine 2+ (Negative); RBC,Urine 1 /hpf (0-5); Specific Gravity,Urine 1.022 (1.001-1.035); Squamous Epithelial Cell,Urine 12 /hpf (0-4); Urobilinogen,Urine <2.0 mg/dL (<2.0); WBC,Urine 3 /hpf (0-5)
--- NOTE | 2024-07-10 19:09 | XR ---
EXAMINATION TYPE: XR chest 1V portable DATE OF EXAM: 07/10/2024 6:41 PM COMPARISON: 06/30/2024 CLINICAL INDICATION: Female, 53 years old with history of cough, TECHNIQUE: XR chest 1V portable view(s) obtained. FINDINGS: The heart size is normal. The pulmonary vasculature is normal. The lungs are clear. IMPRESSION: 1. No acute pulmonary process. [facility], , 07/10/2024 7:07 PM
[2024-07-10 19:25] LABS: Glucose 501 mg/dL (74-99)
[2024-07-10] MEDS: ACETAMINOPHEN TAB 325 MG TAB PO STA (19:42)
[2024-07-10] MEDS: INSULIN LISPRO (HumaLOG) 100 UNIT/ML 10 mL VL SQ ONE (19:43)
[2024-07-10 20:51] LABS: Glucose,Whole Blood 401 mg/dL (70-110)
--- NOTE | 2024-07-10 21:02 | ED ---
General Adult HPI - General Chief complaint: Recheck/Abnormal Lab/Rx Stated complaint: Hyperglycemia Time Seen by Provider: 07/10/24 18:05 Source: patient, EMS, RN notes reviewed, old records reviewed Mode of arrival: EMS Limitations: no limitations - History of Present Illness Initial comments: Patient is a 53-year-old female well-known to our department complaining of her chronic generalized body pain, her chronic cough, as well as high blood sugars. She has no other acute complaints at this time. Is asking for pain medications and I did offer her Tylenol. Denies any fevers, chills, cough that is productive, chest pain, nausea, vomiting, abdominal pain. Presents for further evaluation at this time. - Related Data Home Medications Medication Instructions Recorded Confirmed Atorvastatin [Lipitor] 80 mg PO HS 06/25/19 06/13/24 lisinopriL 40 mg PO DAILY 09/24/20 06/13/24 traZODone HCL 50 mg PO HS 01/11/21 06/13/24 Albuterol Inhaler [Ventolin Hfa 2 puff INHALATION RT-QID PRN 03/01/23 06/13/24 Inhaler] Insulin Glargine,Hum.rec.anlog 30 units SQ HS 07/30/23 06/13/24 [Lantus Solostar Pen] Ezetimibe [Zetia] 10 mg PO HS 02/17/24 06/13/24 Insulin Aspart (Niacinamide) 20 units SQ AC-TID 02/17/24 06/13/24 [Fiasp 100 Unit/ml Flextouch Pen] Nystatin 100,000 Unit/gm Powd 1 applic TOPICAL BID PRN 02/17/24 06/13/24 [Mycostatin Powder] Pantoprazole [Protonix] 40 mg PO DAILY 02/17/24 06/13/24 metFORMIN HCL 1,000 mg PO BID 06/13/24 06/13/24 Previous Rx's Medication Instructions Recorded amLODIPine [Norvasc] 10 mg PO DAILY #30 tab 03/11/23 hydrALAZINE HCL [Apresoline] 25 mg PO BID #60 tab 03/11/23 Ondansetron Odt [Zofran ODT] 4 mg PO Q8HR PRN #10 tab 03/29/24 Ibuprofen [Motrin] 600 mg PO Q8HR PRN 30 Days #30 tab 01/04/25 Famotidine [Pepcid] 20 mg PO DAILY #20 tablet 04/18/24 Ipratropium [place] 0.06%Nasal 2 spray EA NOSTRIL BID #15 ml 06/07/24 [Atrovent Nasal 0.06%] Ondansetron Odt [Zofran Odt] 4 mg PO Q8HR PRN #10 tab 06/19/24 Acetaminophen-Codeine 300-30mg 1 tab PO Q4H PRN #10 tablet 06/30/24 [Tylenol w/codeine #3] Allergies Allergy/AdvReac Type Severity Reaction Status Date / Time levofloxacin [From Levaquin] Allergy Rash/Hives Verified 07/10/24 17:45 Review of Systems ROS Statement: Those systems with pertinent positive or pertinent negative responses have been documented in the HPI. Review of Systems: CONST: Denies fever EYES: Denies blurry vision ENT: Denies nasal congestion C/V: Denies Chest pain RESP: Denies shortness of breath GI: Denies abdominal pain : Denies dysuria SKIN: Denies rash. MSK: Endorses chronic body pain NEURO: Denies headache ROS Other: All systems not noted in ROS Statement are negative. Past Medical History Past Medical History: Diabetes Mellitus, GERD/Reflux, Hyperlipidemia, Hy pertension, Syncope Additional Past Medical History / Comment(s): Pt recently admitted to [facility] on 07/21/21 with uncontrolled IDDM and hyperkalemia. Other hx: Recurrent panc reatitis, hypertriglyceridemia, elevated lipase, IDDM type II, UTI, chronic low back pain, bulging discs, dental abscesses in past. History of Any Multi-Drug Resistant Organisms: MRSA Date of last positivie culture/infection: 03/01/23 MDRO Source:: Abdomen Past Surgical History: Tubal Ligation Additional Past Surgical History / Comment(s): Age 7 had VSD repair, tumor remov al 03/2023 Past Anesthesia/Blood Transfusion Reactions: No Reported Reaction Past Psychological History: No Psychological Hx Reported Smoking Status: Former smoker, Second hand smoke exposure, Vaper Past Alcohol Use History: None Reported Past Drug Use History: None Reported - Past Family History Mother Family Medical History: No Reported History Additional Family Medical History / Comment(s): Mother was healthy. She is , pt cannot recall cause of . Father Family Medical History: Pneumonia Additional Family Medical History / Comment(s): Father at the age of 67yrs from pneumonia General Exam - General Exam Comments Initial Comments: General: Appears in no acute distress. HEAD: Normal with no signs of head trauma. EYES: EOMI ENT: Hearing grossly intact, normal oropharynx. RESPIRATORY: Clear breath sounds bilaterally. No wheezes, rales, or rhonchi. C/V: Regular rate and rhythm. S1 and S2 auscultated, no edema, peripheral pulses 2+ and intact throughout ABD: Abd is soft, nontender, nondistended EXT: No obvious deformity SKIN: No rashes or lesions observed on exposed skin. NEURO: Alert and oriented x 4. Limitations: no limitations Course Vital Signs 07/10/24 07/10/24 07/10/24 17:42 18:42 18:49 Temperature 98.5 F Pulse Rate 76 76 76 Respiratory 18 Rate Blood Pressure 119/77 O2 Sat by Pulse 97 Oximetry 07/10/24 21:20 Temperature Pulse Rate 79 Respiratory 16 Rate Blood Pressure 143/78 O2 Sat by Pulse 97 Oximetry Medical Decision Making - Medical Decision Making Was pt. sent in by a medical professional or institution (, PA, PSYCHOLOGIST COUNSELING, urgent care, hospital, or skilled nursing...) When possible be specific @ -No Did you speak to anyone other than the patient for history (EMS, parent, family, police, friend...)? What history was obtained from this source @ -No Did you review nursing and triage notes (agree or disagree)? Why? @ -I reviewed and agree with nursing and triage notes Were old charts reviewed (outside hosp., previous admission, EMS record, old EKG, old radiological studies, urgent care reports/EKG's, skilled nursing records)? Report findings @ -Ultras reviewed, showing multiple visits over the last few weeks for identical complaints. Differential Diagnosis (chest pain, altered mental status, abdominal pain women, abdominal pain men, vaginal bleeding, weakness, fever, dyspnea, syncope, headache, dizziness, GI bleed, back pain, seizure, CVA, palpatations, mental health, musculoskeletal)? @ -Body aches, chronic pain, hyperglycemia, DKA. This list is not all inclusive. EKG interpreted by me (3pts min.). @ -None done X-rays interpreted by me (1pt min.). @ -Chest x-ray shows no obvious acute cardiopulmonary process. CT interpreted by me (1pt min.). @ -None done U/S interpreted by me (1pt. min.). @ -None done What testing was considered but not performed or refused? (CT, X-rays, U/S, lab s)? Why? @ -None What meds were considered but not given or refused? Why? @ -None Did you discuss the management of the patient with other professionals (professionals i.e. , PA, PSYCHOLOGIST COUNSELING, lab, RT, psych nurse, social science instructor, bullet lubricating machine operator, teacher, booking officer, rn case management)? Give summary @ -No Was smoking cessation discussed for >3mins.? @ -No Was critical care preformed (if so, how long)? @ -No Were there social determinants of health that impacted care today? How? (Homelessness, low income, unemployed, alcoholism, drug addiction, transportation, low edu. Level, literacy, decrease access to med. care, custodial, rehab)? @ -No Was there de-escalation of care discussed even if they declined (Discuss DNR or withdrawal of care, Hospice)? DNR status @ -No What co-morbidities impacted this encounter? (DM, HTN, Smoking, COPD, CAD, Cancer, CVA, ARF, Chemo, Hep., AIDS, mental health diagnosis, sleep apnea, morbid obesity)? @ -Diabetes, chronic cough, chronic pain Was patient admitted / discharged? Hospital course, mention meds given and route, prescriptions, significant lab abnormalities, going to OR and other pertinent info. @ -Patient is a 53-year-old female well-known to our department complaining of her chronic generalized body pain, her chronic cough, as well as high blood sugars. Is no other acute complaints at this time. Presents for further evaluation. Will obtain basic labs as well as a chest x-ray. Patient will receive IV fluids as her blood sugar was over 400. She will get be given a breathing treatment. She was in agreement this plan. Vital signs within acceptable limits. Imaging unremarkable. Labs are remarkable for hyperglycemia but no evidence of DKA. No other obvious acute findings at this time. I discussed results with patient. She will be discharged home after we decrease her blood sugar some. She will be given a dose of insulin as well as IV fluids. She has not yet received the fluids and she was in agreement this plan. Patient's blood sugar was improving, and she will be discharged home at this time and she was in agreement this plan. I instructed the patient to follow up with their PCP in the next 1-3 days. I explained that the patient should return to the emergency department if they experience any worsening symptoms. Strict return precautions were discussed with the patient. The patient expressed understanding of these instructions. I answered all questions that the patient had. The patient was discharged home in good condition with their prescriptions and follow up information. Undiagnosed new problem with uncertain prognosis? @ -No Drug Therapy requiring intensive monitoring for toxicity (Heparin, Nitro, Insulin, Cardizem)? @ -No Were any procedures done? @ -No Diagnosis/symptom? @ -Hyperglycemia, chronic pain Acute, or Chronic, or Acute on Chronic? @ -Acute Uncomplicated (without systemic symptoms) or Complicated (systemic symptoms)? @ -uncomplicated Side effects of treatment? @ -No Exacerbation, Progression, or Severe Exacerbation? @ -No Poses a threat to life or bodily function? How? (Chest pain, [place], [place], pneumonia, PE, COPD, DKA, ARF, appy, cholecystitis, CVA, Diverticulitis, Homicidal, Suicidal, threat to staff... and all critical care pts) @ -Unlikely at this time - Lab Data Result diagrams: 07/10/24 18:10 07/10/24 18:27 Lab Results 07/10/24 07/10/24 07/10/24 Range/Units 17:50 18:10 18:27 WBC 9.0 (3.8-10.6) k/uL RBC 4.84 (3.80-5.40) m/uL Hgb 12.7 (11.4-16.0) gm/dL Hct 40.2 (34.0-46.0) % MCV 83.0 (80.0-100.0) fL MCH 26.2 (25.0-35.0) pg MCHC 31.6 (31.0-37.0) g/dL RDW 17.1 H (11.5-15.5) % Plt Count 478 H (150-450) k/uL MPV 6.8 Neutrophils % 62 % Lymphocytes % 28 % Monocytes % 5 % Eosinophils % 4 % Basophils % 0 % Neutrophils # 5.6 (1.3-7.7) k/uL Lymphocytes # 2.5 (1.0-4.8) k/uL Monocytes # 0.4 (0-1.0) k/uL Eosinophils # 0.3 (0-0.7) k/uL Basophils # 0.0 (0-0.2) k/uL Hypochromasia Slight Anisocytosis Slight Microcytosis Slight Sodium 132 L (137-145) mmol/L Potassium 4.7 (3.5-5.1) mmol/L Chloride 99 (98-107) mmol/L Carbon Dioxide 21 L (22-30) mmol/L Anion Gap 12 mmol/L BUN 20 H (7-17) mg/dL Creatinine 0.80 (0.52-1.04) mg/dL Est GFR (CKD-EPI)AfAm >90 (>60 ml/min/1.73 sqM) Est GFR (CKD-EPI)NonAf 86 (>60 ml/min/1.73 sqM) Glucose 501 H* (74-99) mg/dL POC Glucose (mg/dL) 483 H (70-110) mg/dL POC Glu Orthodontic Band Maker ID Amanda Sexton Calcium 9.2 (8.4-10.2) mg/dL Magnesium 1.4 L (1.6-2.3) mg/dL Total Bilirubin 0.6 (0.2-1.3) mg/dL AST 23 (14-36) U/L ALT 18 (4-34) U/L Alkaline Phosphatase 113 (38-126) U/L Total Protein 6.4 (6.3-8.2) g/dL Albumin 3.7 (3.5-5.0) g/dL Urine Color Urine Appearance (Clear) Urine pH (5.0-8.0) Ur Specific [place] (1.001-1.035) Urine Protein (Negative) Urine Glucose (UA) (Negative) Urine Ketones (Negative) Urine Blood (Negative) Urine Nitrite (Negative) Urine Bilirubin (Negative) Urine Urobilinogen (<2.0) mg/dL Ur Leukocyte Esterase (Negative) Urine RBC (0-5) /hpf Urine WBC (0-5) /hpf Ur Squamous Epith Cells (0-4) /hpf Urine Bacteria (None) /hpf Acetone, Qual Negative (Negative) 07/10/24 07/10/24 Range/Units 18:33 20:49 WBC (3.8-10.6) k/uL RBC (3.80-5.40) m/uL Hgb (11.4-16.0) gm/dL Hct (34.0-46.0) % MCV (80.0-100.0) fL MCH (25.0-35.0) pg MCHC (31.0-37.0) g/dL RDW (11.5-15.5) % Plt Count (150-450) k/uL MPV Neutrophils % % Lymphocytes % % Monocytes % % Eosinophils % % Basophils % % Neutrophils # (1.3-7.7) k/uL Lymphocytes # (1.0-4.8) k/uL Monocytes # (0-1.0) k/uL Eosinophils # (0-0.7) k/uL Basophils # (0-0.2) k/uL Hypochromasia Anisocytosis Microcytosis Sodium (137-145) mmol/L Potassium (3.5-5.1) mmol/L Chloride (98-107) mmol/L Carbon Dioxide (22-30) mmol/L Anion Gap mmol/L BUN (7-17) mg/dL Creatinine (0.52-1.04) mg/dL Est GFR (CKD-EPI)AfAm (>60 ml/min/1.73 sqM) Est GFR (CKD-EPI)NonAf (>60 ml/min/1.73 sqM) Glucose (74-99) mg/dL POC Glucose (mg/dL) 401 H (70-110) mg/dL POC Glu Orthodontic Band Maker ID [facility] Calcium (8.4-10.2) mg/dL Magnesium (1.6-2.3) mg/dL Total Bilirubin (0.2-1.3) mg/dL AST (14-36) U/L ALT (4-34) U/L Alkaline Phosphatase (38-126) U/L Total Protein (6.3-8.2) g/dL Albumin (3.5-5.0) g/dL Urine Color Colorless Urine Appearance Cloudy H (Clear) Urine pH 5.5 (5.0-8.0) Ur Specific [place] 1.022 (1.001-1.035) Urine Protein 2+ H (Negative) Urine Glucose (UA) 4+ H (Negative) Urine Ketones Negative (Negative) Urine Blood Negative (Negative) Urine Nitrite Negative (Negative) Urine Bilirubin Negative (Negative) Urine Urobilinogen <2.0 (<2.0) mg/dL Ur Leukocyte Esterase Negative (Negative) Urine RBC 1 (0-5) /hpf Urine WBC 3 (0-5) /hpf Ur Squamous Epith Cells 12 H (0-4) /hpf Urine Bacteria Rare H (None) /hpf Acetone, Qual (Negative) Disposition Clinical Impression: Hyperglycemia, Chronic pain Disposition: HOME SELF-CARE Condition: Good Instructions (If sedation given, give patient instructions): Diabetic Hyp erglycemia (ED) Is patient prescribed a controlled substance at d/c from ED?: No Referrals: Ronel Manzano MD [Primary Care Provider] - 1-2 days Time of Disposition: 21:00
[2024-07-10 21:22] VITALS: BP 143/78; PULSE 79; RESP 16
== END 2024-07-10 21:22 | disposition home or self-care (01) ==
LOC: EC 17:39
DX: G89.29 Other chronic pain (principal); E11.65 Type 2 diabetes mellitus with hyperglycemia; R05.3 Chronic cough; F17.290 Nicotine dependence, other tobacco product, uncomplicated; Z79.4 Long term (current) use of insulin; Z88.1 Allergy status to other antibiotic agents
CPT/HCPCS: 36415; 71045; 80053; 81001; 82009; 83735; 85025; 94640; 96360; 96361; 99285

== ENCOUNTER 2024-07-11 22:00 | Emergency (ER) | payer MEDICARE ==
[2024-07-11 22:03] VITALS: BP 136/93; PULSE 68; RESP 18; TEMP 98.6
--- NOTE | 2024-07-11 22:45 | ED ---
Recheck HPI - General Chief Complaint: Recheck/Abnormal Lab/Rx Stated Complaint: Pain Time Seen by Provider: 07/11/24 22:04 Source: EMS, RN notes reviewed, old records reviewed Mode of arrival: EMS Limitations: no limitations - History of Present Illness Initial Comments: This is a 53-year-old female to the ER for evaluation of medication refill. Well-known to this ER here for chronic pain MD Complaint: medication refill request Returns Today for: persistent/worsening pain related to initial visit Symptoms Since Prior Visit: worsening pain Treatments Prior to Arrival: Given Pain Meds on - Related Data Home Medications Medication Instructions Recorded Confirmed Atorvastatin [Lipitor] 80 mg PO HS 06/25/19 07/19/24 lisinopriL 40 mg PO DAILY 09/24/20 07/19/24 traZODone HCL 50 mg PO HS 01/11/21 07/19/24 Albuterol Inhaler [Ventolin Hfa 2 puff INHALATION RT-QID PRN 03/01/23 07/19/24 Inhaler] Insulin Glargine,Hum.rec.anlog 30 units SQ HS 07/30/23 07/19/24 [Lantus Solostar Pen] Ezetimibe [Zetia] 10 mg PO HS 02/17/24 07/19/24 Insulin Aspart (Niacinamide) 20 units SQ AC-TID 02/17/24 07/19/24 [Fiasp 100 Unit/ml Flextouch Pen] Nystatin 100,000 Unit/gm Powd 1 applic TOPICAL BID PRN 02/17/24 07/19/24 [Mycostatin Powder] Pantoprazole [Protonix] 40 mg PO DAILY 02/17/24 07/19/24 metFORMIN HCL 1,000 mg PO BID 06/13/24 07/19/24 Previous Rx's Medication Instructions Recorded amLODIPine [Norvasc] 10 mg PO DAILY #30 tab 03/11/23 hydrALAZINE HCL [Apresoline] 25 mg PO BID #60 tab 03/11/23 Ondansetron Odt [Zofran ODT] 4 mg PO Q8HR PRN #10 tab 03/29/24 Ibuprofen [Motrin] 600 mg PO Q8HR PRN 30 Days #30 tab 04/11/24 Famotidine [Pepcid] 20 mg PO DAILY #20 tablet 04/18/24 Ipratropium [place] 0.06%Nasal 2 spray EA NOSTRIL BID #15 ml 06/07/24 [Atrovent Nasal 0.06%] Acetaminophen-Codeine 300-30mg 1 tab PO Q4H PRN #10 tablet 06/30/24 [Tylenol w/codeine #3] Allergies Allergy/AdvReac Type Severity Reaction Status Date / Time levofloxacin [From Levaquin] Allergy Rash/Hives Verified 07/21/24 05:46 Review of Systems ROS Statement: Those systems with pertinent positive or pertinent negative responses have been documented in the HPI. ROS Other: All systems not noted in ROS Statement are negative. Past Medical History Past Medical History: Diabetes Mellitus, GERD/Reflux, Hyperlipidemia, Hypertension, Syncope Additional Past Medical History / Comment(s): Pt recently admitted to [facility] on 07/21/21 with uncontrolled IDDM and hyperkalemia. Other hx: Recurrent pancreatitis, hypertriglyceridemia, elevated lipase, IDDM type II, UTI, chronic low back pain, bulging discs, dental abscesses in past. 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 She is , pt cannot recall cause of . Father Family Medical History: Pneumonia Additional Family Medical History / Comment(s): Father at the age of 67yrs from pneumonia General Exam Limitations: no limitations General appearance: alert, in no apparent distress Head exam: Present: atraumatic, normocephalic, normal inspection Eye exam: Present: normal appearance, PERRL, EOMI. Absent: scleral icterus, conjunctival injection, periorbital swelling ENT exam: Present: normal exam, mucous membranes moist Neck exam: Present: normal inspection. Absent: tenderness, meningismus, lymphadenopathy Respiratory exam: Present: normal lung sounds bilaterally. Absent: respiratory distress, wheezes, rales, rhonchi, stridor Cardiovascular Exam: Present: regular rate, normal rhythm, normal heart sounds. Absent: systolic murmur, diastolic murmur, rubs, gallop, clicks GI/Abdominal exam: Present: soft, normal bowel sounds. Absent: distended, tenderness, guarding, rebound, rigid Extremities exam: Present: normal inspection, full ROM, normal capillary refill. Absent: tenderness, pedal edema, joint swelling, calf tenderness Back exam: Present: normal inspection Neurological exam: Present: alert, oriented X3, CN II-XII intact Psychiatric exam: Present: normal affect, normal mood Skin exam: Present: warm, dry, intact, normal color. Absent: rash Course Vital Signs 07/11/24 22:01 Temperature 98.6 F Pulse Rate 68 Respiratory 18 Rate Blood Pressure 136/93 O2 Sat by Pulse 98 Oximetry - Reevaluation(s) Reevaluation #1: Medical records reviewed Reevaluation #2: Patient symptoms improved Reevaluation #3: Patient informed of results and questions answered Reevaluation #4: Was pt. sent in by a medical professional or institution (, PA, RD LAB TECHNICIAN, urgent ca re, hospital, or fpc...) When possible be specific @ -no Did you speak to anyone other than the patient for history (EMS, parent, family, police, friend...)? What history was obtained from this source @ -no Did you review nursing and triage notes (agree or disagree)? Why? @ -agree Are old charts reviewed (outside hosp., previous admission, EMS record, old EKG, old radiological studies, urgent care reports/EKG's, fpc records)? Report findings @ -yes Differential Diagnosis (chest pain, altered mental status, abdominal pain women, abdominal pain men, vaginal bleeding, weakness, fever, dyspnea, syncope, headache, dizziness, GI bleed, back pain, seizure, CVA, palpatations, mental health, musculoskeletal)? @ -prior EKG interpreted by me (3pts min.). @ -no X-rays interpreted by me (1pt min.). @ -yes negative for acute disease CT interpreted by me (1pt min.). @ -no U/S interpreted by me (1pt. min.). @ -no What testing was considered but not performed or refused? (CT, X-rays, U/S, labs)? Why? @ -none What meds were considered but not given or refused? Why? @ -none Did you discuss the management of the patient with other professionals (professionals i.e. , PA, RD LAB TECHNICIAN, lab, RT, psych nurse, high school social science teacher, six pack loader operator, teacher, staff electronic warfare officer, case technician)? Give summary @ -no Was smoking cessation discussed for >3mins.? @ -no Was critical care preformed (if so, how long)? @ -no Were there social determinants of health that impacted care today? How? (Homelessness, low income, unemployed, alcoholism, drug addiction, transportation, low edu. Level, literacy, decrease access to med. care, group home, rehab)? @ -none Was there de-escalation of care discussed even if they declined (Discuss DNR or withdrawal of care, Hospice)? DNR status @ -no What co-morbidities impacted this encounter? (DM, HTN, Smoking, COPD, CAD, Cancer, CVA, ARF, Chemo, Hep., AIDS, mental health diagnosis, sleep apnea, morbid obesity)? @ -none Was patient admitted / discharged? Hospital course, mention meds given and route, prescriptions, significant lab abnormalities, going to OR and other pertinent info. @ -53 female to ER chronic pain medication refill patient given medication here in the ER feels better and can be discharged home DisCharged Undiagnosed new problem with uncertain prognosis? @ -no Drug Therapy requiring intensive monitoring for toxicity (Heparin, Nitro, In sulin, Cardizem)? @ -no Were any procedures done? @ -no Diagnosis/symptom? @ -Chronic pain Acute, or Chronic, or Acute on Chronic? @ -Acute Uncomplicated (without systemic symptoms) or Complicated (systemic symptoms)? @ -Complicated Side effects of treatment? @ -no Exacerbation, Progression, or Severe Exacerbation? @ -exacerbation Poses a threat to life or bodily function? How? (Chest pain, [place], [place], pneumonia, PE, COPD, DKA, ARF, appy, cholecystitis, CVA, Diverticulitis, Homicidal, Suicidal, threat to staff... and all critical care pts) @ -no Medical Decision Making - Medical Decision Making 53 female to ER chronic pain medication refill patient given medication here in the ER feels better and can be discharged home Disposition Clinical Impression: Chronic pain Disposition: HOME SELF-CARE Condition: Good Instructions (If sedation given, give patient instructions): Chronic Pain (ED) Is patient prescribed a controlled substance at d/c from ED?: No Referrals: Ronel Manzano MD [Primary Care Provider] - 1-2 days Time of Disposition: 22:45
[2024-07-11] MEDS: Acetaminophen-Codeine 300-30mg TAB PO STA (22:50)
[2024-07-11] MEDS: ACET/COD 300 MG/30 MG STARTER PACK 6 TAB BTL PO STA (22:52)
== END 2024-07-11 22:59 | disposition home or self-care (01) ==
LOC: EC 22:00
DX: G89.29 Other chronic pain (principal); F17.290 Nicotine dependence, other tobacco product, uncomplicated; Z76.0 Encounter for issue of repeat prescription; Z88.1 Allergy status to other antibiotic agents
CPT/HCPCS: 99283

== ENCOUNTER 2024-07-14 18:26 | Emergency (ER) | payer MEDICARE ==
[2024-07-14 18:37] VITALS: TEMP 98.3
--- NOTE | 2024-07-14 19:02 | ED ---
Recheck HPI - General Chief Complaint: Nausea/Vomiting/Diarrhea Stated Complaint: generalized pain Time Seen by Provider: 07/14/24 18:33 Source: patient, EMS, RN notes reviewed, old records reviewed Mode of arrival: EMS Limitations: no limitations - History of Present Illness Initial Comments: This is a 53-year-old female to ER for chronic pain. Patient is well-known to this emergency department and presents for review evaluation of medication refill MD Complaint: medication refill request Returns Today for: persistent/worsening pain related to initial visit Symptoms Since Prior Visit: worsening pain Associated Symptoms: none Treatments Prior to Arrival: Given Pain Meds on - Related Data Home Medications Medication Instructions Recorded Confirmed Atorvastatin [Lipitor] 80 mg PO HS 06/25/19 07/19/24 lisinopriL 40 mg PO DAILY 09/24/20 07/19/24 traZODone HCL 50 mg PO HS 01/11/21 07/19/24 Albuterol Inhaler [Ventolin Hfa 2 puff INHALATION RT-QID PRN 03/01/23 07/19/24 Inhaler] Insulin Glargine,Hum.rec.anlog 30 units SQ HS 07/30/23 07/19/24 [Lantus Solostar Pen] Ezetimibe [Zetia] 10 mg PO HS 02/17/24 07/19/24 Insulin Aspart (Niacinamide) 20 units SQ AC-TID 02/17/24 07/19/24 [Fiasp 100 Unit/ml Flextouch Pen] Nystatin 100,000 Unit/gm Powd 1 applic TOPICAL BID PRN 02/17/24 07/19/24 [Mycostatin Powder] Pantoprazole [Protonix] 40 mg PO DAILY 02/17/24 07/19/24 metFORMIN HCL 1,000 mg PO BID 06/13/24 07/19/24 Previous Rx's Medication Instructions Recorded amLODIPine [Norvasc] 10 mg PO DAILY #30 tab 03/11/23 hydrALAZINE HCL [Apresoline] 25 mg PO BID #60 tab 03/11/23 Ondansetron Odt [Zofran ODT] 4 mg PO Q8HR PRN #10 tab 03/29/24 Ibuprofen [Motrin] 600 mg PO Q8HR PRN 30 Days #30 tab 04/11/24 Famotidine [Pepcid] 20 mg PO DAILY #20 tablet 04/18/24 Ipratropium [place] 0.06%Nasal 2 spray EA NOSTRIL BID #15 ml 06/07/24 [Atrovent Nasal 0.06%] Acetaminophen-Codeine 300-30mg 1 tab PO Q4H PRN #10 tablet 06/30/24 [Tylenol w/codeine #3] Allergies Allergy/AdvReac Type Severity Reaction Status Date / Time levofloxacin [From Levaquin] Allergy Rash/Hives Verified 07/19/24 19:21 Review of Systems ROS Statement: Those systems with pertinent positive or pertinent negative responses have been documented in the HPI. ROS Other: All systems not noted in ROS Statement are negative. Past Medical History Past Medical History: Diabetes Mellitus, GERD/Reflux, Hyperlipidemia, Hypertension, Syncope Additional Past Medical History / Comment(s): Pt recently admitted to [facility] on 07/21/21 with uncontrolled IDDM and hyperkalemia. Other hx: Recurrent pancreatitis, hypertriglyceridemia, elevated lipase, IDDM type II, UTI, chronic low back pain, bulging discs, dental abscesses in past. History of Any Multi-Drug Resistant Organisms: MRSA Date of last positivie culture/infection: 03/01/23 MDRO Source:: Abdomen Past Surgical History: Tubal Ligation Additional Past Surgical History / Comment(s): Age 7 had VSD repair, tumor removal 03/2023 Past Anesthesia/Blood Transfusion Reactions: No Reported Reaction Past Psychological History: No Psychological Hx Reported Smoking Status: Former smoker, Second hand smoke exposure, Vaper Past Alcohol Use History: None Reported Past Drug Use History: None Reported - Past Family History Mother Family Medical History: No Reported History Additional Family Medical History / Comment(s): Mother was healthy. She is , pt cannot recall cause of . Father Family Medical History: Pneumonia Additional Family Medical History / Comment(s): Father at the age of 67yrs from pneumonia General Exam Limitations: no limitations General appearance: alert, in no apparent distress Head exam: Present: atraumatic, normocephalic, normal inspection Eye exam: Present: normal appearance, PERRL, EOMI. Absent: scleral icterus, conjunctival injection, periorbital swelling ENT exam: Present: normal exam, mucous membranes moist Neck exam: Present: normal inspection. Absent: tenderness, meningismus, lymphadenopathy Respiratory exam: Present: normal lung sounds bilaterally. Absent: respiratory distress, wheezes, rales, rhonchi, stridor Cardiovascular Exam: Present: regular rate, normal rhythm, normal heart sounds. Absent: systolic murmur, diastolic murmur, rubs, gallop, clicks GI/Abdominal exam: Present: soft, normal bowel sounds. Absent: distended, tenderness, guarding, rebound, rigid Extremities exam: Present: normal inspection, full ROM, normal capillary refill. Absent: tenderness, pedal edema, joint swelling, calf tenderness Back exam: Present: normal inspection Neurological exam: Present: alert, oriented X3, CN II-XII intact Psychiatric exam: Present: normal affect, normal mood Skin exam: Present: warm, dry, intact, normal color. Absent: rash Course Vital Signs 07/14/24 07/14/24 07/14/24 18:28 18:34 19:48 Temperature 98.3 F Pulse Rate 70 74 77 Respiratory 18 17 18 Rate Blood Pressure 164/87 160/94 O2 Sat by Pulse 97 98 99 Oximetry - Reevaluation(s) Reevaluation #1: Medical records reviewed Reevaluation #2: Patient symptoms improved Reevaluation #3: Patient informed of results questions answered Reevaluation #4: Was pt. sent in by a medical professional or institution (, PA, PARTITION MAKING MACHINE OPERATOR, urgent care, hospital, or detention...) When possible be specific @ -no Did you speak to anyone other than the patient for history (EMS, parent, family, police, friend...)? What history was obtained from this source @ -no Did you review nursing and triage notes (agree or disagree)? Why? @ -agree Are old charts reviewed (outside hosp., previous admission, EMS record, old EKG, old radiological studies, urgent care reports/EKG's, detention records)? Report findings @ -yes Differential Diagnosis (chest pain, altered mental status, abdominal pain women, abdominal pain men, vaginal bleeding, weakness, fever, dyspnea, syncope, headache, dizziness, GI bleed, back pain, seizure, CVA, palpatations, mental health, musculoskeletal)? @ -prior EKG interpreted by me (3pts min.). @ -no X-rays interpreted by me (1pt min.). @ -nol CT interpreted by me (1pt min.). @ -no U/S interpreted by me (1pt. min.). @ -no What testing was considered but not performed or refused? (CT, X-rays, U/S, labs)? Why? @ -none What meds were considered but not given or refused? Why? @ -none Did you discuss the management of the patient with other professionals (professionals i.e. , PA, PARTITION MAKING MACHINE OPERATOR, lab, RT, psych nurse, hospice social worker, casing crew pusher, t eacher, public affairs officer, pillowcase sewer)? Give summary @ -no Was smoking cessation discussed for >3mins.? @ -no Was critical care preformed (if so, how long)? @ -no Were there social determinants of health that impacted care today? How? (Homelessness, low income, unemployed, alcoholism, drug addiction, transportation, low edu. Level, literacy, decrease access to med. care, detention, rehab)? @ -none Was there de-escalation of care discussed even if they declined (Discuss DNR or withdrawal of care, Hospice)? DNR status @ -no What co-morbidities impacted this encounter? (DM, HTN, Smoking, COPD, CAD, Cancer, CVA, ARF, Chemo, Hep., AIDS, mental health diagnosis, sleep apnea, morbid obesity)? @ -none Was patient admitted / discharged? Hospital course, mention meds given and route, prescriptions, significant lab abnormalities, going to OR and other pertinent info. @ -53 female to ER for reevaluation, med refill patient is well-known to this ER and can be discharged home Undiagnosed new problem with uncertain prognosis? @ -no Drug Therapy requiring intensive monitoring for toxicity (Heparin, Nitro, Insulin, Cardizem)? @ -no Were any procedures done? @ -no Diagnosis/symptom? @ -Chest pain Acute, or Chronic, or Acute on Chronic? @ -Acute Uncomplicated (without systemic symptoms) or Complicated (systemic symptoms)? @ -Complicated Side effects of treatment? @ -no Exacerbation, Progression, or Severe Exacerbation? @ -exacerbation Poses a threat to life or bodily function? How? (Chest pain, [place], [place], pneumonia, PE, COPD, DKA, ARF, appy, cholecystitis, CVA, Diverticulitis, Homicidal, Suicidal, threat to staff... and all critical care pts) @ -no Medical Decision Making - Medical Decision Making 53 female to ER for reevaluation, med refill patient is well-known to this ER and can be discharged home Disposition Clinical Impression: Nausea & vomiting, Abdominal pain Disposition: HOME SELF-CARE Condition: Good Instructions (If sedation given, give patient instructions): Acute Nausea and Vomiting (ED) Is patient prescribed a controlled substance at d/c from ED?: No Referrals: Ronel Manzano MD [Primary Care Provider] - 1-2 days Time of Disposition: 19:20
[2024-07-14] MEDS: ACET/COD 300 MG/30 MG STARTER PACK 6 TAB BTL PO STA (19:44)
[2024-07-14] MEDS: ONDANSETRON 4 MG ODT STARTER PACK 2 TAB BTL PO STA (19:45)
[2024-07-14] MEDS: ONDANSETRON ODT 4 MG TAB PO STA (19:45)
[2024-07-14] MEDS: HYDROmorphone 1 MG/ML 1 ML SYRINGE IM STA (19:45)
[2024-07-14 19:50] VITALS: BP 160/94; PULSE 77; RESP 18
== END 2024-07-14 19:50 | disposition home or self-care (01) ==
LOC: EC 18:26
DX: R11.2 Nausea with vomiting, unspecified (principal); R10.9 Unspecified abdominal pain; F17.290 Nicotine dependence, other tobacco product, uncomplicated; Z88.1 Allergy status to other antibiotic agents
CPT/HCPCS: 99284; 96372; J1171; S0119

== ENCOUNTER 2024-07-17 11:41 | Emergency (ER) | payer MEDICARE ==
[2024-07-17 11:47] VITALS: PULSE 70; TEMP 98.7
[2024-07-17 11:51] LABS: Glucose,Whole Blood 561 mg/dL (70-110)
[2024-07-17 12:27] LABS: Basophils # (A) 0.05 10*3/uL (0.00-0.10); Basophils % (A) 0.7 %; Eosinophils # (A) 0.22 10*3/uL (0.04-0.35); HCT 36.7 % (37.2-46.3); HGB 12.3 g/dL (12.0-15.0); Lymphocytes # (A) 1.91 10*3/uL (0.90-5.00); Lymphocytes % (A) 25.6 %; MCH 26.7 pg (27.0-32.0); MCHC 33.5 g/dL (32.0-37.0); MCV 79.6 fL (80.0-97.0); Mean Platelet Volume 8.9 fL (9.5-12.2); Monocytes # (A) 0.47 10*3/uL (0.20-1.00); Monocytes % (A) 6.3 %; Neutrophils # (A) 4.78 10*3/uL (1.80-7.70); Neutrophils % (A) 64.1 %; Platelet Count 464 10*3/uL (140-440); RBC 4.61 10*6/uL (4.10-5.20); RDW 16.2 % (11.5-14.5); WBC 7.45 10*3/uL (4.50-10.00)
[2024-07-17 12:32] LABS: ALT 22 U/L (4-34); African American GFR (CKD) >90 (>60 ml/min/1.73 sqM); Albumin 3.9 g/dL (3.5-5.0); Anion Gap 15 mmol/L; Blood Urea Nitrogen 20 mg/dL (7-17); Carbon Dioxide 20 mmol/L (22-30); Chloride 93 mmol/L (98-107); Non-African American GFR(CKD) >90 (>60 ml/min/1.73 sqM); Sodium 128 mmol/L (137-145); Total Bilirubin 0.6 mg/dL (0.2-1.3); Total Protein 6.9 g/dL (6.3-8.2)
--- NOTE | 2024-07-17 12:33 | ED ---
General Adult HPI - General Chief complaint: Recheck/Abnormal Lab/Rx Stated complaint: not feeling well Time Seen by Provider: 07/17/24 11:46 Source: patient, EMS, RN notes reviewed, old records reviewed Mode of arrival: EMS - History of Present Illness Initial comments: 53-year-old female presents for evaluation of not feeling well. This is a chronic complaint patient is a frequent flyer to the emergency department. She denies any other specific complaints she states she ate breakfast this morning and her blood sugar prior to breakfast was 300. Upon arrival her blood sugar was almost 600. She has known poorly controlled diabetes and is noncompliant with diet. Patient denies chest pain denies fever. Denies abdominal pain. - Related Data Home Medications Medication Instructions Recorded Confirmed Atorvastatin [Lipitor] 80 mg PO HS 06/25/19 06/13/24 lisinopriL 40 mg PO DAILY 09/24/20 06/13/24 traZODone HCL 50 mg PO HS 01/11/21 06/13/24 Albuterol Inhaler [Ventolin Hfa 2 puff INHALATION RT-QID PRN 03/01/23 06/13/24 Inhaler] Insulin Glargine,Hum.rec.anlog 30 units SQ HS 07/30/23 06/13/24 [Lantus Solostar Pen] Ezetimibe [Zetia] 10 mg PO HS 02/17/24 06/13/24 Insulin Aspart (Niacinamide) 20 units SQ AC-TID 02/17/24 06/13/24 [Fiasp 100 Unit/ml Flextouch Pen] Nystatin 100,000 Unit/gm Powd 1 applic TOPICAL BID PRN 02/17/24 06/13/24 [Mycostatin Powder] Pantoprazole [Protonix] 40 mg PO DAILY 02/17/24 06/13/24 metFORMIN HCL 1,000 mg PO BID 06/13/24 06/13/24 Previous Rx's Medication Instructions Recorded amLODIPine [Norvasc] 10 mg PO DAILY #30 tab 03/11/23 hydrALAZINE HCL [Apresoline] 25 mg PO BID #60 tab 03/11/23 Ondansetron Odt [Zofran ODT] 4 mg PO Q8HR PRN #10 tab 03/29/24 Ibuprofen [Motrin] 600 mg PO Q8HR PRN 30 Days #30 tab 04/11/24 Famotidine [Pepcid] 20 mg PO DAILY #20 tablet 04/18/24 Ipratropium [place] 0.06%Nasal 2 spray EA NOSTRIL BID #15 ml 06/07/24 [Atrovent Nasal 0.06%] Ondansetron Odt [Zofran Odt] 4 mg PO Q8HR PRN #10 tab 06/19/24 Acetaminophen-Codeine 300-30mg 1 tab PO Q4H PRN #10 tablet 06/30/24 [Tylenol w/codeine #3] Allergies Allergy/AdvReac Type Severity Reaction Status Date / Time levofloxacin [From Levaquin] Allergy Rash/Hives Verified 07/17/24 11:47 Review of Systems ROS Statement: Those systems with pertinent positive or pertinent negative responses have been documented in the HPI. ROS Other: All systems not noted in ROS Statement are negative. Past Medical History Past Medical History: Diabetes Mellitus, GERD/Reflux, Hyperlipidemia, Hypertension, Syncope Additional Past Medical History / Comment(s): Pt recently admitted to [facility] on 07/21/21 with uncontrolled IDDM and hyperkalemia. Other hx: Recurrent pancreatitis, hypertriglyceridemia, elevated lipase, IDDM type II, UTI, chronic low back pain, bulging discs, dental abscesses in past. History of Any Multi-Drug Resistant Organisms: MRSA Date of last positivie culture/infection: 03/01/23 MDRO Source:: Abdomen Past Surgical History: Tubal Ligation Additional Past Surgical History / Comment(s): Age 7 had VSD repair, tumor removal 03/2023 Past Anesthesia/Blood Transfusion Reactions: No Reported Reaction Past Psychological History: No Psychological Hx Reported Smoking Status: Former smoker, Second hand smoke exposure, Vaper Past Alcohol Use History: None Reported Past Drug Use History: None Reported - Past Family History Mother Family Medical History: No Reported History Additional Family Medical History / Comment(s): Mother was healthy. She is , pt cannot recall cause of . Father Family Medical History: Pneumonia Additional Family Medical History / Comment(s): Father at the age of 67yrs from pneumonia General Exam General appearance: alert, in no apparent distress Head exam: Present: atraumatic, normocephalic Eye exam: Present: normal appearance, PERRL ENT exam: Present: normal exam, mucous membranes moist Neck exam: Present: normal inspection. Absent: tenderness, meningismus Respiratory exam: Present: normal lung sounds bilaterally. Absent: respiratory distress, wheezes Cardiovascular Exam: Present: regular rate, normal rhythm GI/Abdominal exam: Present: soft. Absent: distended, tenderness Neurological exam: Present: alert, oriented X3, CN II-XII intact. Absent: motor sensory deficit Psychiatric exam: Present: normal affect, normal mood Skin exam: Present: warm, dry, intact. Absent: cyanosis Course Vital Signs 07/17/24 11:43 Temperature 98.7 F Pulse Rate 70 Respiratory 18 Rate Blood Pressure 148/83 O2 Sat by Pulse 96 Oximetry Medical Decision Making - Medical Decision Making Was pt. sent in by a medical professional or institution (, ROSALIE, PROPERTY INSURANCE CLAIMS EXAMINER, urgent care, hospital, or [place] health [facility] facility...) When possible be specific @ -No Did you speak to anyone other than the patient for history (EMS, parent, family, police, friend...)? What history was obtained from this source @ -No Did you review nursing and triage notes (agree or disagree)? Why? @ -I reviewed and agree with nursing and triage notes Were old charts reviewed (outside hosp., previous admission, EMS record, old EKG, old radiological studies, urgent care reports/EKG's, [place] [facility] facility records)? Report findings @ -No old charts were reviewed Differential Diagnosis: elevated blood sugar, dehydration, DKA, viral illness, chronic illness EKG interpreted by me (3pts min.). @ -As above X-rays interpreted by me (1pt min.). @ -None done CT interpreted by me (1pt min.). @ -None done U/S interpreted by me (1pt. min.). @ -None done What testing was considered but not performed or refused? (CT, X-rays, U/S, labs)? Why? @ -None What meds were considered but not given or refused? Why? @ -None Did you discuss the management of the patient with other professionals (professionals i.e. ROSALIE Flaherty, PROPERTY INSURANCE CLAIMS EXAMINER, lab, RT, psych nurse, health care social worker, [place], teacher, welfare officer, director of casework services)? Give summary @ -No Was smoking cessation discussed for >3mins.? @ -No Was critical care preformed (if so, how long)? @ -No Were there social determinants of health that impacted care today? How? (Homelessness, low income, unemployed, alcoholism, drug addiction, transp ortation, low edu. Level, literacy, decrease access to med. care, halfway, rehab)? @ -No Was there de-escalation of care discussed even if they declined (Discuss DNR or withdrawal of care, Hospice)? DNR status @ -No What co-morbidities impacted this encounter? (DM, HTN, Smoking, COPD, CAD, Cancer, CVA, ARF, Chemo, Hep., AIDS, mental health diagnosis, sleep apnea, morbid obesity)? @ -[poorly Controlled diabetes Was patient admitted / discharged? Hospital course, mention meds given and route, prescriptions, significant lab abnormalities, going to OR and other pertinent info. @ -53 complaints, elevated blood sugar. Laboratory studies are performed and IV fluid is administered in the emergency department. Your elevated on lab testing, no signs of DKA given fluids, insulin. The patient will continue to monitor at home. Undiagnosed new problem with uncertain prognosis? @ -No Drug Therapy requiring intensive monitoring for toxicity (Heparin, Nitro, Insulin, Cardizem)? @ -No Were any procedures done? @ -No Diagnosis/symptom? @Hyperglycemia Acute, or Chronic, or Acute on Chronic? @ chronic Uncomplicated (without systemic symptoms) or Complicated (systemic symptoms)? @ -Default Side effects of treatment? @ -No Exacerbation, Progression, or Severe Exacerbation? @ -No Poses a threat to life or bodily function? How? (Chest pain, [place], [place], pneumonia, PE, COPD, DKA, ARF, appy, cholecystitis, CVA, Diverticulitis, Homicidal, Suicidal, threat to staff... and all critical care pts) @ -No - Lab Data Result diagrams: 07/17/24 11:59 07/17/24 11:59 Lab Results 07/17/24 07/17/24 07/17/24 Range/Units 11:49 11:59 11:59 WBC 7.45 (4.50-10.00) 10*3/uL RBC 4.61 (4.10-5.20) 10*6/uL Hgb 12.3 (12.0-15.0) g/dL Hct 36.7 L (37.2-46.3) % MCV 79.6 L (80.0-97.0) fL MCH 26.7 L (27.0-32.0) pg MCHC 33.5 (32.0-37.0) g/dL Plt Count 464 H (140-440) 10*3/uL MPV 8.9 L (9.5-12.2) fL Immature Gran % (Auto) 0.3 % Neutrophils % 64.1 % Lymphocytes % 25.6 % Monocytes % 6.3 % Eosinophils % 3.0 % Basophils % 0.7 % Immature Gran # 0.02 (0.00-0.04) 10*3/uL Neutrophils # 4.78 (1.80-7.70) 10*3/uL Lymphocytes # 1.91 (0.90-5.00) 10*3/uL Monocytes # 0.47 (0.20-1.00) 10*3/uL Eosinophils # 0.22 (0.04-0.35) 10*3/uL Basophils # 0.05 (0.00-0.10) 10*3/uL Sodium 128 L (137-145) mmol/L Potassium 5.0 (3.5-5.1) mmol/L Chloride 93 L (98-107) mmol/L Carbon Dioxide 20 L (22-30) mmol/L Anion Gap 15 mmol/L BUN 20 H (7-17) mg/dL Creatinine 0.72 (0.52-1.04) mg/dL Est GFR (CKD-EPI)AfAm >90 (>60 ml/min/1.73 sqM) Est GFR (CKD-EPI)NonAf >90 (>60 ml/min/1.73 sqM) Glucose 554 H* (74-99) mg/dL POC Glucose (mg/dL) 561 H* (70-110) mg/dL POC Glu Networking Engineer ID Gaudencio Juliana Calcium 9.0 (8.4-10.2) mg/dL Total Bilirubin 0.6 (0.2-1.3) mg/dL AST 27 (14-36) U/L ALT 22 (4-34) U/L Alkaline Phosphatase 134 H (38-126) U/L Total Protein 6.9 (6.3-8.2) g/dL Albumin 3.9 (3.5-5.0) g/dL Disposition Clinical Impression: Uncontrolled type 2 diabetes mellitus Disposition: HOME SELF-CARE Condition: Fair Instructions (If sedation given, give patient instructions): Diabetes and Exercise (ED), Diabetic Hyperglycemia (ED) Is patient prescribed a controlled substance at d/c from ED?: No Referrals: Ronel Manzano MD [Primary Care Provider] - 1-2 days Time of Disposition: 13:12
[2024-07-17] MEDS: SODIUM CHLORIDE 0.9% 1,000 ML IV ONE (12:35)
[2024-07-17 12:51] LABS: Glucose 554 mg/dL (74-99)
[2024-07-17 12:52] LABS: AST 27 U/L (14-36); Alkaline Phosphatase 134 U/L (38-126)
[2024-07-17] MEDS: ACETAMINOPHEN TAB 500 MG TAB PO STA (13:24)
[2024-07-17] MEDS: INSULIN REGULAR 100 UNIT/ML VIAL (IV) IV ONE (13:25)
[2024-07-17 14:23] LABS: Glucose,Whole Blood 308 mg/dL (70-110)
[2024-07-17 14:32] VITALS: BP 145/80; RESP 20
== END 2024-07-17 14:36 | disposition home or self-care (01) ==
LOC: EC 11:41
DX: E11.65 Type 2 diabetes mellitus with hyperglycemia (principal); F17.290 Nicotine dependence, other tobacco product, uncomplicated; Z88.1 Allergy status to other antibiotic agents
CPT/HCPCS: 36415; 80053; 85025; 96360; 99283

== ENCOUNTER 2024-07-17 23:37 | Emergency (ER) | payer MEDICARE ==
[2024-07-17 23:48] VITALS: RESP 18
--- NOTE | 2024-07-18 01:55 | ED ---
General Adult HPI - General Chief complaint: Extremity Problem,Nontraumatic Stated complaint: pain Time Seen by Provider: 07/18/24 00:42 Source: patient, EMS, RN notes reviewed Mode of arrival: EMS Limitations: no limitations - History of Present Illness Initial comments: 53-year-old female presents to the emergency department for evaluation of cough, congestion, low back pain. Patient reports that she recently started experiencing nasal congestion. She was seen here for this recently. She also notes a history of chronic low back pain which has been bothering her. States that this has been going on for multiple years and she follows with her primary care provider for this. She denies any loss of bowel bladder function. Denies saddle anesthesia. Denies urinary retention. Denies any chest pain, shortness of breath. - Related Data Home Medications Medication Instructions Recorded Confirmed Atorvastatin [Lipitor] 80 mg PO HS 06/25/19 07/19/24 lisinopriL 40 mg PO DAILY 09/24/20 07/19/24 traZODone HCL 50 mg PO HS 01/11/21 07/19/24 Albuterol Inhaler [Ventolin Hfa 2 puff INHALATION RT-QID PRN 03/01/23 07/19/24 Inhaler] Insulin Glargine,Hum.rec.anlog 30 units SQ HS 07/30/23 07/19/24 [Lantus Solostar Pen] Ezetimibe [Zetia] 10 mg PO HS 02/17/24 07/19/24 Insulin Aspart (Niacinamide) 20 units SQ AC-TID 02/17/24 07/19/24 [Fiasp 100 Unit/ml Flextouch Pen] Nystatin 100,000 Unit/gm Powd 1 applic TOPICAL BID PRN 02/17/24 07/19/24 [Mycostatin Powder] Pantoprazole [Protonix] 40 mg PO DAILY 02/17/24 07/19/24 metFORMIN HCL 1,000 mg PO BID 06/13/24 07/19/24 Previous Rx's Medication Instructions Recorded amLODIPine [Norvasc] 10 mg PO DAILY #30 tab 03/11/23 hydrALAZINE HCL [Apresoline] 25 mg PO BID #60 tab 03/11/23 Ondansetron Odt [Zofran ODT] 4 mg PO Q8HR PRN #10 tab 03/29/24 Ibuprofen [Motrin] 600 mg PO Q8HR PRN 30 Days #30 tab 04/11/24 Famotidine [Pepcid] 20 mg PO DAILY #20 tablet 04/18/24 Ipratropium [place] 0.06%Nasal 2 spray EA NOSTRIL BID #15 ml 06/07/24 [Atrovent Nasal 0.06%] Acetaminophen-Codeine 300-30mg 1 tab PO Q4H PRN #10 tablet 06/30/24 [Tylenol w/codeine #3] Allergies Allergy/AdvReac Type Severity Reaction Status Date / Time levofloxacin [From Levaquin] Allergy Rash/Hives Verified 07/21/24 05:46 Review of Systems ROS Statement: Those systems with pertinent positive or pertinent negative responses have been documented in the HPI. ROS Other: All systems not noted in ROS Statement are negative. Past Medical History Past Medical History: Diabetes Mellitus, GERD/Reflux, Hyperlipidemia, Hypertension, Syncope Additional Past Medical History / Comment(s): Pt recently admitted to [facility] on 07/21/21 with uncontrolled IDDM and hyperkalemia. Other hx: Recurrent pancreatitis, hypertriglyceridemia, elevated lipase, IDDM type II, UTI, chronic low back pain, bulging discs, dental abscesses in past. History of Any Multi-Drug Resistant Organisms: MRSA Date of last positivie culture/infection: 03/01/23 MDRO Source:: Abdomen Past Surgical History: Tubal Ligation Additional Past Surgical History / Comment(s): Age 7 had VSD repair, tumor removal 03/2023 Past Anesthesia/Blood Transfusion Reactions: No Reported Reaction Past Psychological History: No Psychological Hx Reported Smoking Status: Former smoker, Second hand smoke exposure, Vaper Past Alcohol Use History: None Reported Past Drug Use History: None Reported - Past Family History Mother Family Medical History: No Reported History Additional Family Medical History / Comment(s): Mother was healthy. She is , pt cannot recall cause of . Father Family Medical History: Pneumonia Additional Family Medical History / Comment(s): Father at the age of 67yrs from pneumonia General Exam Limitations: no limitations General appearance: alert, in no apparent distress Head exam: Present: atraumatic, normocephalic, normal inspection Eye exam: Present: normal appearance, PERRL, EOMI. Absent: scleral icterus, conjunctival injection, periorbital swelling ENT exam: Present: normal exam, mucous membranes moist Neck exam: Present: normal inspection. Absent: tenderness, meningismus, lymphadenopathy Respiratory exam: Present: normal lung sounds bilaterally. Absent: respiratory distress, wheezes, rales, rhonchi, stridor Cardiovascular Exam: Present: regular rate, normal rhythm, normal heart sounds. Absent: systolic murmur, diastolic murmur, rubs, gallop, clicks GI/Abdominal exam: Present: soft. Absent: distended, tenderness, guarding, rebound, rigid Extremities exam: Present: normal inspection, full ROM, normal capillary refill. Absent: tenderness, pedal edema, joint swelling, calf tenderness Back exam: Present: normal inspection Neurological exam: Present: alert, oriented X3 Psychiatric exam: Present: normal affect, normal mood Skin exam: Present: warm, dry, intact, normal color. Absent: rash Course Vital Signs 07/17/24 07/18/24 23:41 02:33 Temperature 98.7 F 98.3 F Pulse Rate 70 72 Respiratory 18 18 Rate Blood Pressure 132/85 152/86 O2 Sat by Pulse 98 97 Oximetry Medical Decision Making - Medical Decision Making Was pt. sent in by a medical professional or institution (, PA, ROPE TIER, urgent care, hospital, or [facility]...) When possible be specific @ -No Did you speak to anyone other than the patient for history (EMS, parent, family, police, friend...)? What history was obtained from this source @ -No Did you review nursing and triage notes (agree or disagree)? Why? @ -I reviewed and agree with nursing and triage notes Were old charts reviewed (outside hosp., previous admission, EMS record, old EKG, old radiological studies, urgent care reports/EKG's, [facility] records)? Report findings @ -No old charts were reviewed Differential Diagnosis (chest pain, altered mental status, abdominal pain women, abdominal pain men, vaginal bleeding, weakness, fever, dyspnea, syncope, headache, dizziness, GI bleed, back pain, seizure, CVA, palpatations, mental health, musculoskeletal)? @ -Differential Back Pain: Strain, zoster, cauda equina syndrome, epidural abscess, vertebral osteomyelitis, discitis, fracture, subluxation, disc herniation, DJD, spinal stenosis, dissection, AAA, pancreatitis, peptic ulcer disease, pyelonephritis, kidney stone, this is not meant to be an all-inclusive list. EKG interpreted by me (3pts min.). @ -None X-rays interpreted by me (1pt min.). @ -None done CT interpreted by me (1pt min.). @ -None done U/S interpreted by me (1pt. min.). @ -None done What testing was considered but not performed or refused? (CT, X-rays, U/S, labs)? Why? @ -None What meds were considered but not given or refused? Why? @ -None Did you discuss the management of the patient with other professionals (professionals i.e. Dr., PA, ROPE TIER, lab, RT, psych nurse, social sciences chair, public health policy analyst, teacher, electorate officer, case finisher)? Give summary @ -No Was smoking cessation discussed for >3mins.? @ -No Was critical care preformed (if so, how long)? @ -No Were there social determinants of health that impacted care today? How? (Homel essness, low income, unemployed, alcoholism, drug addiction, transportation, low edu. Level, literacy, decrease access to med. care, skilled nursing, rehab)? @ -No Was there de-escalation of care discussed even if they declined (Discuss DNR or withdrawal of care, Hospice)? DNR status @ -No What co-morbidities impacted this encounter? (DM, HTN, Smoking, COPD, CAD, Cancer, CVA, ARF, Chemo, Hep., AIDS, mental health diagnosis, sleep apnea, morbid obesity)? @ -None Was patient admitted / discharged? Hospital course, mention meds given and route, prescriptions, significant lab abnormalities, going to OR and other pertinent info. @ -Discharge. Patient presented to emergency department for evaluation of cough, congestion, low back pain. Low back pain is a chronic issue for the patient. Cough and congestion she has been evaluated for recently. Advised her to utilize [id number] medications for this. She was provided medication for pain control in the emergency department. She will be discharged home advised follow-up to her primary care provider. She is understanding agreeable with plan. Patient stable at discharge. Case discussed with Dr. Huynh. Undiagnosed new problem with uncertain prognosis? @ -No Drug Therapy requiring intensive monitoring for toxicity (Heparin, Nitro, Insulin, Cardizem)? @ -No Were any procedures done? @ -No Diagnosis/symptom? @ -Back pain Acute, or Chronic, or Acute on Chronic? @ -Chronic Uncomplicated (without systemic symptoms) or Complicated (systemic symptoms)? @ -Uncomplicated Side effects of treatment? @ -No Exacerbation, Progression, or Severe Exacerbation? @ -No Poses a threat to life or bodily function? How? (Chest pain, [place], [place], pneumonia, PE, COPD, DKA, ARF, appy, cholecystitis, CVA, Diverticulitis, Homicidal, Suicidal, threat to staff... and all critical care pts) @ -No Disposition Clinical Impression: Viral URI Disposition: HOME SELF-CARE Condition: Stable Additional Instructions: Please follow up with your primary care provider. Return to the emergency department for new or worsening symptoms. Is patient prescribed a controlled substance at d/c from ED?: No Referrals: Ronel Manzano MD [Primary Care Provider] - 1-2 days
[2024-07-18] MEDS: LIDOCAINE 4% PATCH TOPICAL ONE (02:29)
[2024-07-18] MEDS: ACETAMINOPHEN TAB 325 MG TAB PO STA (02:30)
[2024-07-18 02:41] VITALS: BP 152/86; PULSE 72; TEMP 98.3
== END 2024-07-18 02:33 | disposition home or self-care (01) ==
LOC: EC 23:37
DX: G89.29 Other chronic pain (principal); J06.9 Acute upper respiratory infection, unspecified; M54.50 Low back pain, unspecified; F17.290 Nicotine dependence, other tobacco product, uncomplicated; Z88.1 Allergy status to other antibiotic agents
CPT/HCPCS: 99284

== ENCOUNTER 2024-07-19 18:14 | Emergency (ER) | payer MEDICARE ==
[2024-07-19 18:23] VITALS: TEMP 98.7
[2024-07-19 18:34] LABS: Glucose,Whole Blood >600 mg/dL (70-110)
--- NOTE | 2024-07-19 18:53 | ED ---
General Adult HPI - General Chief complaint: Recheck/Abnormal Lab/Rx Stated complaint: Generalized pain Time Seen by Provider: 07/19/24 18:24 Source: patient, EMS Mode of arrival: EMS Limitations: no limitations - History of Present Illness Initial comments: Dayna is a pleasant 53-year-old female history of insulin-dependent type 2 diabetes presents the ER today reporting that she was just feeling kind of weak and not well today has not been eating much or drinking much noted that her sugars were high. Patient denies any recent illness. She reports she has been taking her usual medications but may have missed some insulin. - Related Data Home Medications Medication Instructions Recorded Confirmed Atorvastatin [Lipitor] 80 mg PO HS 06/25/19 07/19/24 lisinopriL 40 mg PO DAILY 09/24/20 07/19/24 traZODone HCL 50 mg PO HS 01/11/21 07/19/24 Albuterol Inhaler [Ventolin Hfa 2 puff INHALATION RT-QID PRN 03/01/23 07/19/24 Inhaler] Insulin Glargine,Hum.rec.anlog 30 units SQ HS 07/30/23 07/19/24 [Lantus Solostar Pen] Ezetimibe [Zetia] 10 mg PO HS 02/17/24 07/19/24 Insulin Aspart (Niacinamide) 20 units SQ AC-TID 02/17/24 07/19/24 [Fiasp 100 Unit/ml Flextouch Pen] Nystatin 100,000 Unit/gm Powd 1 applic TOPICAL BID PRN 02/17/24 07/19/24 [Mycostatin Powder] Pantoprazole [Protonix] 40 mg PO DAILY 02/17/24 07/19/24 metFORMIN HCL 1,000 mg PO BID 06/13/24 07/19/24 Previous Rx's Medication Instructions Recorded amLODIPine [Norvasc] 10 mg PO DAILY #30 tab 03/11/23 hydrALAZINE HCL [Apresoline] 25 mg PO BID #60 tab 03/11/23 Ondansetron Odt [Zofran ODT] 4 mg PO Q8HR PRN #10 tab 03/29/24 Ibuprofen [Motrin] 600 mg PO Q8HR PRN 30 Days #30 tab 04/11/24 Famotidine [Pepcid] 20 mg PO DAILY #20 tablet 04/18/24 Ipratropium [place] 0.06%Nasal 2 spray EA NOSTRIL BID #15 ml 06/07/24 [Atrovent Nasal 0.06%] Acetaminophen-Codeine 300-30mg 1 tab PO Q4H PRN #10 tablet 06/30/24 [Tylenol w/codeine #3] Allergies Allergy/AdvReac Type Severity Reaction Status Date / Time levofloxacin [From Levaquin] Allergy Rash/Hives Verified 07/19/24 19:21 Review of Systems ROS Statement: Those systems with pertinent positive or pertinent negative responses have been documented in the HPI. ROS Other: All systems not noted in ROS Statement are negative. Past Medical History Past Medical History: Diabetes Mellitus, GERD/Reflux, Hyperlipidemia, Hypertension, Syncope Additional Past Medical History / Comment(s): Pt recently admitted to [facility] [place] on 07/21/21 with uncontrolled IDDM and hyperkalemia. Other hx: Recurrent pancreatitis, hypertriglyceridemia, elevated lipase, IDDM type II, UTI, chronic low back pain, bulging discs, dental abscesses in past. History of Any Multi-Drug Resistant Organisms: MRSA Date of last positivie culture/infection: 03/01/23 MDRO Source:: Abdomen Past Surgical History: Tubal Ligation Additional Past Surgical History / Comment(s): Age 7 had VSD repair, tumor removal 03/2023 Past Anesthesia/Blood Transfusion Reactions: No Reported Reaction Past Psychological History: No Psychological Hx Reported Smoking Status: Former smoker, Second hand smoke exposure, Vaper Past Alcohol Use History: None Reported Past Drug Use History: None Reported - Past Family History Mother Family Medical History: No Reported History Additional Family Medical History / Comment(s): Mother was healthy. She is , pt cannot recall cause of . Father Family Medical History: Pneumonia Additional Family Medical History / Comment(s): Father at the age of 67yrs from pneumonia General Exam - General Exam Comments Initial Comments: Physical Exam GENERAL: Patient is well-developed and well-nourished. Patient is nontoxic and well-hydrated and is in no distress. HENT: Normocephalic, Atraumatic. EYES: PERRL, EOMI PULMONARY: Unlabored respirations. CARDIOVASCULAR: RRR Warm and well perfused extremities ABDOMEN: Non-distended SKIN: No rashes or bruising : Deferred NEUROLOGIC: Alert and oriented Normal speech Normal gait MUSCULOSKELETAL: Moving all extremities with no apparent injury PSYCHIATRIC: No SI/HI Limitations: no limitations Course Vital Signs 07/19/24 18:17 Temperature 98.7 F Pulse Rate 75 Respiratory 16 Rate Blood Pressure 155/81 O2 Sat by Pulse 98 Oximetry Medical Decision Making - Medical Decision Making Was pt. sent in by a medical professional or institution (ROSALIE Flaherty, REPORTING LEAD, urgent care, hospital, or fpc...) When possible be specific @ -No Did you speak to anyone other than the patient for history (EMS, parent, family, police, friend...)? What history was obtained from this source @ -No Did you review nursing and triage notes (agree or disagree)? Why? @ -I reviewed and agree with nursing and triage notes Were old charts reviewed (outside hosp., previous admission, EMS record, old EKG, old radiological studies, urgent care reports/EKG's, fpc records)? Report findings @ -Previous visits were reviewed Differential Diagnosis (chest pain, altered mental status, abdominal pain women, abdominal pain men, vaginal bleeding, weakness, fever, dyspnea, syncope, headache, dizziness, GI bleed, back pain, seizure, CVA, palpatations, mental health)? @ -Not applicable EKG interpreted by me (3pts min.). @ -As above X-rays interpreted by me (1pt min.). @ -None done CT interpreted by me (1pt min.). @ -None done U/S interpreted by me (1pt. min.). @ -None done What testing was considered but not performed or refused? (CT, X-rays, U/S, labs)? Why? @ -None What meds were considered but not given or refused? Why? @ -None Did you discuss the management of the patient with other professionals (professionals i.e. ROSALIE Flaherty, REPORTING LEAD, lab, RT, psych nurse, social science research assistant, rn mds coordinator, teacher, air defense control officer, bilingual case manager)? Give summary @ -No Was smoking cessation discussed for >3mins.? @ -No Was critical care preformed (if so, how long)? @ -No Were there social determinants of health that impacted care today? How? (Homelessness, low income, unemployed, alcoholism, drug addiction, transportat ion, low edu. Level, literacy, decrease access to med. care, long-term, rehab)? @ -No Was there de-escalation of care discussed even if they declined (Discuss DNR or withdrawal of care, Hospice)? DNR status @ -No What co-morbidities impacted this encounter? (DM, HTN, Smoking, COPD, CAD, Cancer, CVA, ARF, Chemo, Hep., AIDS, mental health diagnosis, sleep apnea, morbid obesity)? @ -Diabetes Was patient admitted / discharged? Hospital course, mention meds given and route, prescriptions, significant lab abnormalities, going to OR and other pertinent info. @ -Discharged The patient was seen and evaluated, history is obtained from the patient Exam unremarkable patient is hyperglycemic, IV fluids and insulin were given here in the ER Glucose is less than 300 and patient is feeling well she will be discharged home Undiagnosed new problem with uncertain prognosis? @ -No Drug Therapy requiring intensive monitoring for toxicity (Heparin, Nitro, Insulin, Cardizem)? @ -No Were any procedures done? @ -No Diagnosis/symptom? @ -Hyperglycemia secondary to diabetes Acute, or Chronic, or Acute on Chronic? @ -Default Uncomplicated (without systemic symptoms) or Complicated (systemic symptoms)? @ -Default Side effects of treatment? @ -No Exacerbation, Progression, or Severe Exacerbation? @ -No Poses a threat to life or bodily function? How? (Chest pain, [place], [place], pneumonia, PE, COPD, DKA, ARF, appy, cholecystitis, CVA, Diverticulitis, Homicidal, Suicidal, threat to staff... and all critical care pts) @ -No - Lab Data Result diagrams: 07/19/24 19:34 07/19/24 19:34 Lab Results 07/19/24 07/19/24 07/19/24 Range/Units 18:29 19:34 19:34 WBC 8.67 (4.50-10.00) 10*3/uL RBC 4.90 (4.10-5.20) 10*6/uL Hgb 12.8 (12.0-15.0) g/dL Hct 39.3 (37.2-46.3) % MCV 80.2 (80.0-97.0) fL MCH 26.1 L (27.0-32.0) pg MCHC 32.6 (32.0-37.0) g/dL Plt Count 503 H (140-440) 10*3/uL MPV 9.1 L (9.5-12.2) fL Immature Gran % (Auto) 0.2 % Neutrophils % 61.3 % Lymphocytes % 29.9 % Monocytes % 5.5 % Eosinophils % 2.3 % Basophils % 0.8 % Immature Gran # 0.02 (0.00-0.04) 10*3/uL Neutrophils # 5.31 (1.80-7.70) 10*3/uL Lymphocytes # 2.59 (0.90-5.00) 10*3/uL Monocytes # 0.48 (0.20-1.00) 10*3/uL Eosinophils # 0.20 (0.04-0.35) 10*3/uL Basophils # 0.07 (0.00-0.10) 10*3/uL VBG pH (7.31-7.41) VBG pCO2 (37-51) mmHg VBG HCO3 (24-28) mmol/L Sodium 129 L (137-145) mmol/L Potassium 5.3 H (3.5-5.1) mmol/L Chloride 93 L (98-107) mmol/L Carbon Dioxide 21 L (22-30) mmol/L Anion Gap 15 mmol/L BUN 15 (7-17) mg/dL Creatinine 0.72 (0.52-1.04) mg/dL Est GFR (CKD-EPI)AfAm >90 (>60 ml/min/1.73 sqM) Est GFR (CKD-EPI)NonAf >90 (>60 ml/min/1.73 sqM) Glucose 683 H* (74-99) mg/dL POC Glucose (mg/dL) >600 H* (70-110) mg/dL POC Glu Bulb [facility] Lactic Ac Sepsis Rflx Plasma Lactic Acid [place] (0.7-2.0) mmol/L Calcium 9.3 (8.4-10.2) mg/dL Magnesium 1.4 L (1.6-2.3) mg/dL Total Bilirubin 0.5 (0.2-1.3) mg/dL AST 23 (14-36) U/L ALT 21 (4-34) U/L Alkaline Phosphatase 143 H (38-126) U/L Total Protein 7.0 (6.3-8.2) g/dL Albumin 4.1 (3.5-5.0) g/dL Urine Color Urine Appearance (Clear) Urine pH (5.0-8.0) Ur Specific [place] (1.001-1.035) Urine Protein (Negative) Urine Glucose (UA) (Negative) Urine Ketones (Negative) Urine Blood (Negative) Urine Nitrite (Negative) Urine Bilirubin (Negative) Urine Urobilinogen (<2.0) mg/dL Ur Leukocyte Esterase (Negative) Urine RBC (0-5) /hpf Urine WBC (0-5) /hpf Ur Squamous Epith Cells (0-4) /hpf Acetone, Qual Negative (Negative) 07/19/24 07/19/24 07/19/24 Range/Units 19:34 19:34 20:46 WBC (4.50-10.00) 10*3/uL RBC (4.10-5.20) 10*6/uL Hgb (12.0-15.0) g/dL Hct (37.2-46.3) % MCV (80.0-97.0) fL MCH (27.0-32.0) pg MCHC (32.0-37.0) g/dL Plt Count (140-440) 10*3/uL MPV (9.5-12.2) fL Immature Gran % (Auto) % Neutrophils % % Lymphocytes % % Monocytes % % Eosinophils % % Basophils % % Immature Gran # (0.00-0.04) 10*3/uL Neutrophils # (1.80-7.70) 10*3/uL Lymphocytes # (0.90-5.00) 10*3/uL Monocytes # (0.20-1.00) 10*3/uL Eosinophils # (0.04-0.35) 10*3/uL Basophils # (0.00-0.10) 10*3/uL VBG pH 7.35 (7.31-7.41) VBG pCO2 47 (37-51) mmHg VBG HCO3 26 (24-28) mmol/L Sodium (137-145) mmol/L Potassium (3.5-5.1) mmol/L Chloride (98-107) mmol/L Carbon Dioxide (22-30) mmol/L Anion Gap mmol/L BUN (7-17) mg/dL Creatinine (0.52-1.04) mg/dL Est GFR (CKD-EPI)AfAm (>60 ml/min/1.73 sqM) Est GFR (CKD-EPI)NonAf (>60 ml/min/1.73 sqM) Glucose (74-99) mg/dL POC Glucose (mg/dL) (70-110) mg/dL POC Glu Bulb Packer ID Lactic Ac Sepsis Rflx Y Plasma Lactic Acid [place] 5.5 H* (0.7-2.0) mmol/L Calcium (8.4-10.2) mg/dL Magnesium (1.6-2.3) mg/dL Total Bilirubin (0.2-1.3) mg/dL AST (14-36) U/L ALT (4-34) U/L Alkaline Phosphatase (38-126) U/L Total Protein (6.3-8.2) g/dL Albumin (3.5-5.0) g/dL Urine Color Urine Appearance (Clear) Urine pH (5.0-8.0) Ur Specific [place] (1.001-1.035) Urine Protein (Negative) Urine Glucose (UA) (Negative) Urine Ketones (Negative) Urine Blood (Negative) Urine Nitrite (Negative) Urine Bilirubin (Negative) Urine Urobilinogen (<2.0) mg/dL Ur Leukocyte Esterase (Negative) Urine RBC (0-5) /hpf Urine WBC (0-5) /hpf Ur Squamous Epith Cells (0-4) /hpf Acetone, Qual (Negative) 07/19/24 07/19/24 07/20/24 Range/Units 21:15 23:13 00:13 WBC (4.50-10.00) 10*3/uL RBC (4.10-5.20) 10*6/uL Hgb (12.0-15.0) g/dL Hct (37.2-46.3) % MCV (80.0-97.0) fL MCH (27.0-32.0) pg MCHC (32.0-37.0) g/dL Plt Count (140-440) 10*3/uL MPV (9.5-12.2) fL Immature Gran % (Auto) % Neutrophils % % Lymphocytes % % Monocytes % % Eosinophils % % Basophils % % Immature Gran # (0.00-0.04) 10*3/uL Neutrophils # (1.80-7.70) 10*3/uL Lymphocytes # (0.90-5.00) 10*3/uL Monocytes # (0.20-1.00) 10*3/uL Eosinophils # (0.04-0.35) 10*3/uL Basophils # (0.00-0.10) 10*3/uL VBG pH (7.31-7.41) VBG pCO2 (37-51) mmHg VBG HCO3 (24-28) mmol/L Sodium (137-145) mmol/L Potassium (3.5-5.1) mmol/L Chloride (98-107) mmol/L Carbon Dioxide (22-30) mmol/L Anion Gap mmol/L BUN (7-17) mg/dL Creatinine (0.52-1.04) mg/dL Est GFR (CKD-EPI)AfAm (>60 ml/min/1.73 sqM) Est GFR (CKD-EPI)NonAf (>60 ml/min/1.73 sqM) Glucose (74-99) mg/dL POC Glucose (mg/dL) 291 H (70-110) mg/dL POC Glu Bulb Packer ID [place] Bhavik Lactic Ac Sepsis Rflx Plasma Lactic Acid [place] 3.6 H* (0.7-2.0) mmol/L Calcium (8.4-10.2) mg/dL Magnesium (1.6-2.3) mg/dL Total Bilirubin (0.2-1.3) mg/dL AST (14-36) U/L ALT (4-34) U/L Alkaline Phosphatase (38-126) U/L Total Protein (6.3-8.2) g/dL Albumin (3.5-5.0) g/dL Urine Color Colorless Urine Appearance Clear (Clear) Urine pH 6.0 (5.0-8.0) Ur Specific [place] 1.018 (1.001-1.035) Urine Protein 1+ H (Negative) Urine Glucose (UA) 4+ H (Negative) Urine Ketones Negative (Negative) Urine Blood Negative (Negative) Urine Nitrite Negative (Negative) Urine Bilirubin Negative (Negative) Urine Urobilinogen <2.0 (<2.0) mg/dL Ur Leukocyte Esterase Negative (Negative) Urine RBC 1 (0-5) /hpf Urine WBC <1 (0-5) /hpf Ur Squamous Epith Cells <1 (0-4) /hpf Acetone, Qual (Negative) Disposition Clinical Impression: Uncontrolled type 2 diabetes mellitus Disposition: HOME SELF-CARE Condition: Stable Additional Instructions: Your long-acting insulin when you get home Is patient prescribed a controlled substance at d/c from ED?: No Referrals: Ronel Manzano MD [Primary Care Provider] - 1-2 days
[2024-07-19] MEDS: SODIUM CHLORIDE 0.9% 1,000 ML IV ONE (19:39)
[2024-07-19 19:48] LABS: VBG PH 7.35 (7.31-7.41)
[2024-07-19 19:49] LABS: Basophils # (A) 0.07 10*3/uL (0.00-0.10); Basophils % (A) 0.8 %; Eosinophils % (A) 2.3 %; HCT 39.3 % (37.2-46.3); HGB 12.8 g/dL (12.0-15.0); Lymphocytes # (A) 2.59 10*3/uL (0.90-5.00); Lymphocytes % (A) 29.9 %; MCH 26.1 pg (27.0-32.0); MCHC 32.6 g/dL (32.0-37.0); MCV 80.2 fL (80.0-97.0); Mean Platelet Volume 9.1 fL (9.5-12.2); Monocytes # (A) 0.48 10*3/uL (0.20-1.00); Monocytes % (A) 5.5 %; Neutrophils # (A) 5.31 10*3/uL (1.80-7.70); Neutrophils % (A) 61.3 %; Platelet Count 503 10*3/uL (140-440); RDW 16.2 % (11.5-14.5); WBC 8.67 10*3/uL (4.50-10.00)
[2024-07-19 20:31] LABS: ALT 21 U/L (4-34); AST 23 U/L (14-36); African American GFR (CKD) >90 (>60 ml/min/1.73 sqM); Albumin 4.1 g/dL (3.5-5.0); Alkaline Phosphatase 143 U/L (38-126); Anion Gap 15 mmol/L; Blood Urea Nitrogen 15 mg/dL (7-17); Calcium 9.3 mg/dL (8.4-10.2); Carbon Dioxide 21 mmol/L (22-30); Chloride 93 mmol/L (98-107); Magnesium 1.4 mg/dL (1.6-2.3); Non-African American GFR(CKD) >90 (>60 ml/min/1.73 sqM); Potassium 5.3 mmol/L (3.5-5.1); Sodium 129 mmol/L (137-145); Total Bilirubin 0.5 mg/dL (0.2-1.3)
[2024-07-19 20:46] LABS: Glucose 683 mg/dL (74-99)
[2024-07-19] MEDS: MAGNESIUM SULFATE-D5W PMX 1 GM in DEXTROSE/WATER 1 100ML.BAG IVPB SCH (21:11)
[2024-07-19] MEDS: Acetaminophen-Codeine 300-30mg TAB PO STA (21:11)
[2024-07-19 21:25] LABS: Appearance,Urine Clear (Clear); Bilirubin,Urine Negative (Negative); Blood,Urine Negative (Negative); Color,Urine Colorless; Glucose,Urine (UA) 4+ (Negative); Ketones,Urine Negative (Negative); Leukocyte Esterase,Urine Negative (Negative); Nitrite,Urine Negative (Negative); Protein,Urine 1+ (Negative); RBC,Urine 1 /hpf (0-5); Specific Gravity,Urine 1.018 (1.001-1.035); Squamous Epithelial Cell,Urine <1 /hpf (0-4); Urobilinogen,Urine <2.0 mg/dL (<2.0); WBC,Urine <1 /hpf (0-5)
[2024-07-19] MEDS: INSULIN REGULAR 100 UNIT/ML VIAL (IV) IV ONE (23:32)
[2024-07-20 00:14] LABS: Glucose,Whole Blood 291 mg/dL (70-110)
[2024-07-20 00:33] VITALS: BP 148/82; PULSE 68; RESP 17
== END 2024-07-20 00:35 | disposition home or self-care (01) ==
LOC: EC 18:14
DX: E11.65 Type 2 diabetes mellitus with hyperglycemia (principal); F17.290 Nicotine dependence, other tobacco product, uncomplicated; Z79.84 Long term (current) use of oral hypoglycemic drugs; Z79.4 Long term (current) use of insulin; Z88.1 Allergy status to other antibiotic agents
CPT/HCPCS: 36415; 80053; 82803; 82009; 83605; 83735; 85025; 81001; 99284; 96365; 96366; 96361 ×2; J3475

== ENCOUNTER 2024-07-21 05:44 | Emergency (ER) | payer MEDICARE ==
[2024-07-21 05:46] VITALS: BP 170/88; PULSE 70; RESP 18; TEMP 98.4
--- NOTE | 2024-07-21 05:49 | ED ---
Recheck HPI - General Chief Complaint: Upper Respiratory Infection Stated Complaint: Cough, Sore Throat Time Seen by Provider: 07/21/24 05:49 Source: patient, EMS, RN notes reviewed Mode of arrival: EMS Limitations: no limitations - History of Present Illness Initial Comments: This is a 53-year-old female to the ER for evaluation patient presents for me dication refill today. Multiple recent ER visits for same. No new symptoms though she does admit to cough and congestion as of late. Blood sugar has been running normal and patient has been taking medications as prescribed MD Complaint: medication refill request Returns Today for: request for prescription, persistent/worsening pain related to initial visit Context: ran out of medication Associated Symptoms: none Treatments Prior to Arrival: Given Pain Meds on - Related Data Home Medications Medication Instructions Recorded Confirmed Atorvastatin [Lipitor] 80 mg PO HS 06/25/19 07/23/24 lisinopriL 40 mg PO DAILY 09/24/20 07/23/24 traZODone HCL 50 mg PO HS 01/11/21 07/23/24 Albuterol Inhaler [Ventolin Hfa 2 puff INHALATION RT-QID PRN 03/01/23 07/23/24 Inhaler] Insulin Glargine,Hum.rec.anlog 30 units SQ HS 07/30/23 07/23/24 [Lantus Solostar Pen] Ezetimibe [Zetia] 10 mg PO HS 02/17/24 07/23/24 Insulin Aspart (Niacinamide) 20 units SQ AC-TID 02/17/24 07/23/24 [Fiasp 100 Unit/ml Flextouch Pen] Nystatin 100,000 Unit/gm Powd 1 applic TOPICAL BID PRN 02/17/24 07/23/24 [Mycostatin Powder] Pantoprazole [Protonix] 40 mg PO DAILY 02/17/24 07/23/24 metFORMIN HCL 1,000 mg PO BID 06/13/24 07/23/24 Previous Rx's Medication Instructions Recorded amLODIPine [Norvasc] 10 mg PO DAILY #30 tab 03/11/23 hydrALAZINE HCL [Apresoline] 25 mg PO BID #60 tab 03/11/23 Ondansetron Odt [Zofran ODT] 4 mg PO Q8HR PRN #10 tab 03/29/24 Ibuprofen [Motrin] 600 mg PO Q8HR PRN 30 Days #30 tab 04/11/24 Famotidine [Pepcid] 20 mg PO DAILY #20 tablet 04/18/24 Ipratropium [place] 0.06%Nasal 2 spray EA NOSTRIL BID #15 ml 06/07/24 [Atrovent Nasal 0.06%] Acetaminophen-Codeine 300-30mg 1 tab PO Q4H PRN #10 tablet 06/30/24 [Tylenol w/codeine #3] Ibuprofen [Motrin] 600 mg PO Q8HR PRN #20 tab 07/27/24 Allergies Allergy/AdvReac Type Severity Reaction Status Date / Time levofloxacin [From Levaquin] Allergy Rash/Hives Verified 07/31/24 13:21 Review of Systems ROS Statement: Those systems with pertinent positive or pertinent negative responses have been documented in the HPI. ROS Other: All systems not noted in ROS Statement are negative. Past Medical History Past Medical History: Diabetes Mellitus, GERD/Reflux, Hyperlipidemia, Hypertension, Syncope Additional Past Medical History / Comment(s): Pt recently admitted to [facility] on 07/21/21 with uncontrolled IDDM and hyperkalemia. Other hx: Recurrent pancreatitis, hypertriglyceridemia, elevated lipase, IDDM type II, UTI, chronic low back pain, bulging discs, dental abscesses in past. History of Any Multi-Drug Resistant Organisms: MRSA Date of last positivie culture/infection: 03/01/23 MDRO Source:: Abdomen Past Surgical History: Tubal Ligation Additional Past Surgical History / Comment(s): Age 7 had VSD repair, tumor removal 03/2023 Past Anesthesia/Blood Transfusion Reactions: No Reported Reaction Past Psychological History: No Psychological Hx Reported Smoking Status: Former smoker, Second hand smoke exposure, Vaper Past Alcohol Use History: None Reported Past Drug Use History: None Reported - Past Family History Mother Family Medical History: No Reported History Additional Family Medical History / Comment(s): Mother was healthy. She is , pt cannot recall cause of . Father Family Medical History: Pneumonia Additional Family Medical History / Comment(s): Father at the age of 67yrs from pneumonia General Exam General appearance: alert, in no apparent distress Head exam: Present: atraumatic, normocephalic, normal inspection Eye exam: Present: normal appearance, PERRL, EOMI. Absent: scleral icterus, conjunctival injection, periorbital swelling ENT exam: Present: normal exam, mucous membranes moist Neck exam: Present: normal inspection. Absent: tenderness, meningismus, lymphadenopathy Respiratory exam: Present: normal lung sounds bilaterally. Absent: respiratory distress, wheezes, rales, rhonchi, stridor Cardiovascular Exam: Present: regular rate, normal rhythm, normal heart sounds. Absent: systolic murmur, diastolic murmur, rubs, gallop, clicks GI/Abdominal exam: Present: soft, normal bowel sounds. Absent: distended, tenderness, guarding, rebound, rigid Extremities exam: Present: normal inspection, full ROM, normal capillary refill. Absent: tenderness, pedal edema, joint swelling, calf tenderness Back exam: Present: normal inspection Neurological exam: Present: alert, oriented X3, CN II-XII intact Psychiatric exam: Present: normal affect, normal mood Skin exam: Present: warm, dry, intact, normal color. Absent: rash Course Vital Signs 07/21/24 07/21/24 05:44 05:51 Temperature 98.4 F Pulse Rate 70 Respiratory 18 18 Rate Blood Pressure 170/88 O2 Sat by Pulse 97 Oximetry - Reevaluation(s) Reevaluation #1: Medical records reviewed Reevaluation #2: Patient symptoms improved Reevaluation #3: Patient informed of results questions answered Reevaluation #4: Was pt. sent in by a medical professional or institution (, PA, PROFESSOR IN FAMILY STUDIES, urgent care, hospital, or correction...) When possible be specific @ -no Did you speak to anyone other than the patient for history (EMS, parent, family, police, friend...)? What history was obtained from this source @ -no Did you review nursing and triage notes (agree or disagree)? Why? @ -agree Are old charts reviewed (outside hosp., previous admission, EMS record, old EKG, old radiological studies, urgent care reports/EKG's, correction records)? Report findings @ -yes Differential Diagnosis (chest pain, altered mental status, abdominal pain women, abdominal pain men, vaginal bleeding, weakness, fever, dyspnea, syncope, headache, dizziness, GI bleed, back pain, seizure, CVA, palpatations, mental health, musculoskeletal)? @ -prior EKG interpreted by me (3pts min.). @ -no X-rays interpreted by me (1pt min.). @ no CT interpreted by me (1pt min.). @ -no U/S interpreted by me (1pt. min.). @ -no What testing was considered but not performed or refused? (CT, X-rays, U/S, labs)? Why? @ -none What meds were considered but not given or refused? Why? @ -none Did you discuss the management of the patient with other professionals (professionals i.e. , PA, PROFESSOR IN FAMILY STUDIES, lab, RT, psych nurse, nursing home social worker, red mud thickener operator, teacher, aoc operations intelligence officer, nurse outreach case manager)? Give summary @ -no Was smoking cessation discussed for >3mins.? @ -no Was critical care preformed (if so, how long)? @ -no Were there social determinants of health that impacted care today? How? (Homelessness, low income, unemployed, alcoholism, drug addiction, transportation, low edu. Level, literacy, decrease access to med. care, ch[facility], rehab)? @ -none Was there de-escalation of care discussed even if they declined (Discuss DNR or withdrawal of care, Hospice)? DNR status @ -no What co-morbidities impacted this encounter? (DM, HTN, Smoking, COPD, CAD, Cancer, CVA, ARF, Chemo, Hep., AIDS, mental health diagnosis, sleep apnea, morbid obesity)? @ -none Was patient admitted / discharged? Hospital course, mention meds given and route, prescriptions, significant lab abnormalities, going to OR and other pertinent info. @ - 53 female well-known to this ER coming in for respiratory symptoms chronic pain med refill. Patient symptoms resolved patient can be discharged home Discharged Undiagnosed new problem with uncertain prognosis? @ -no Drug Therapy requiring intensive monitoring for toxicity (Heparin, Nitro, Insulin, Cardizem)? @ -no Were any procedures done? @ -no Diagnosis/symptom? @ -Med refill Acute, or Chronic, or Acute on Chronic? @ -Acute Uncomplicated (without systemic symptoms) or Complicated (systemic symptoms)? @ -Complicated Side effects of treatment? @ -no Exacerbation, Progression, or Severe Exacerbation? @ -exacerbation Poses a threat to life or bodily function? How? (Chest pain, [place], [place], pneumonia, PE, COPD, DKA, ARF, appy, cholecystitis, CVA, Diverticulitis, Homicidal, Suicidal, threat to staff... and all critical care pts) @ -no Medical Decision Making - Medical Decision Making 53 female well-known to this ER coming in for respiratory symptoms chronic pain med refill. Patient symptoms resolved patient can be discharged home Disposition Clinical Impression: Medication refill Disposition: HOME SELF-CARE Condition: Good Instructions (If sedation given, give patient instructions): Medicine Refill (ED) Is patient prescribed a controlled substance at d/c from ED?: No Referrals: Ronel Manzano MD [Primary Care Provider] - 1-2 days Time of Disposition: 18:00
[2024-07-21] MEDS: ACET/COD 300 MG/30 MG STARTER PACK 6 TAB BTL PO STA (06:11)
[2024-07-21] MEDS: HYDROmorphone 1 MG/ML 1 ML SYRINGE IM STA (06:12)
== END 2024-07-21 06:18 | disposition home or self-care (01) ==
LOC: EC 05:44
DX: G89.29 Other chronic pain (principal); Z76.0 Encounter for issue of repeat prescription; F17.290 Nicotine dependence, other tobacco product, uncomplicated; Z88.1 Allergy status to other antibiotic agents
CPT/HCPCS: 99283; 96372; J1171

== ENCOUNTER 2024-07-23 14:55 | Emergency (ER) | payer MEDICARE ==
--- NOTE | 2024-07-23 15:06 | ED ---
General Adult HPI - General Chief complaint: Recheck/Abnormal Lab/Rx Stated complaint: pain Time Seen by Provider: 07/23/24 14:57 Source: patient, EMS Mode of arrival: EMS Limitations: no limitations - History of Present Illness Initial comments: Dictation was produced using [employer] dictation software. please excuse any grammatical, word or spelling errors. Chief Complaint: 53-year-old female presents with nausea, poor appetite and left lateral foot pain. History of Present Illness: Patient is 53-year-old female well-known to emergency department for multiple visitations for multiple complaints. Patient states today she is here for atraumatic left lateral foot pain. States that hurts over her metatarsal bones. Patient now complaining of nausea. She was brought in by EMS for hyperglycemia as well. The ROS documented in this emergency department record has been reviewed and confirmed by me. Those systems with pertinent positive or negative responses have been documented in the HPI. All other systems are other negative and/or noncontributory. - Related Data Home Medications Medication Instructions Recorded Confirmed Atorvastatin [Lipitor] 80 mg PO HS 06/25/19 07/23/24 lisinopriL 40 mg PO DAILY 09/24/20 07/23/24 traZODone HCL 50 mg PO HS 01/11/21 07/23/24 Albuterol Inhaler [Ventolin Hfa 2 puff INHALATION RT-QID PRN 03/01/23 07/23/24 Inhaler] Insulin Glargine,Hum.rec.anlog 30 units SQ HS 07/30/23 07/23/24 [Lantus Solostar Pen] Ezetimibe [Zetia] 10 mg PO HS 02/17/24 07/23/24 Insulin Aspart (Niacinamide) 20 units SQ AC-TID 02/17/24 07/23/24 [Fiasp 100 Unit/ml Flextouch Pen] Nystatin 100,000 Unit/gm Powd 1 applic TOPICAL BID PRN 02/17/24 07/23/24 [Mycostatin Powder] Pantoprazole [Protonix] 40 mg PO DAILY 02/17/24 07/23/24 metFORMIN HCL 1,000 mg PO BID 06/13/24 07/23/24 Previous Rx's Medication Instructions Recorded amLODIPine [Norvasc] 10 mg PO DAILY #30 tab 03/11/23 hydrALAZINE HCL [Apresoline] 25 mg PO BID #60 tab 03/11/23 Ondansetron Odt [Zofran ODT] 4 mg PO Q8HR PRN #10 tab 03/29/24 Ibuprofen [Motrin] 600 mg PO Q8HR PRN 30 Days #30 tab 04/11/24 Famotidine [Pepcid] 20 mg PO DAILY #20 tablet 04/18/24 Ipratropium [place] 0.06%Nasal 2 spray EA NOSTRIL BID #15 ml 06/07/24 [Atrovent Nasal 0.06%] Acetaminophen-Codeine 300-30mg 1 tab PO Q4H PRN #10 tablet 06/30/24 [Tylenol w/codeine #3] Allergies Allergy/AdvReac Type Severity Reaction Status Date / Time levofloxacin [From Levaquin] Allergy Rash/Hives Verified 07/23/24 15:29 Review of Systems ROS Statement: Those systems with pertinent positive or pertinent negative responses have been documented in the HPI. ROS Other: All systems not noted in ROS Statement are negative. Past Medical History Past Medical History: Diabetes Mellitus, GERD/Reflux, Hyperlipidemia, Hypertension, Syncope Additional Past Medical History / Comment(s): Pt recently admitted to [facility] on 07/21/21 with uncontrolled IDDM and hyperkalemia. Other hx: Recurrent pancreatitis, hypertriglyceridemia, elevated lipase, IDDM type II, UTI, chronic low back pain, bulging discs, dental abscesses in past. History of Any Multi-Drug Resistant Organisms: MRSA Date of last positivie culture/infection: 03/01/23 MDRO Source:: Abdomen Past Surgical History: Tubal Ligation Additional Past Surgical History / Comment(s): Age 7 had VSD repair, tumor removal 03/2023 Past Anesthesia/Blood Transfusion Reactions: No Reported Reaction Past Psychological History: No Psychological Hx Reported Smoking Status: Former smoker, Second hand smoke exposure, Vaper Past Alcohol Use History: None Reported Past Drug Use History: None Reported - Past Family History Mother Family Medical History: No Reported History Additional Family Medical History / Comment(s): Mother was healthy. She is , pt cannot recall cause of . Father Family Medical History: Pneumonia Additional Family Medical History / Comment(s): Father at the age of 67yrs from pneumonia General Exam - General Exam Comments Initial Comments: PHYSICAL EXAM: General Impression: Alert and oriented x3, not in acute distress HEENT: Normocephalic atraumatic, extra-ocular movements intact, pupils equal and reactive to light bilaterally, mucous membranes moist. Cardiovascular: Heart regular rate and rhythm Chest: Able to complete full sentences, no retractions, no tachypnea Abdomen: abdomen soft, non-tender, non-distended, no organomegaly Musculoskeletal: Pulses present and equal in all extremities, no peripheral edema Motor: no focal deficits noted Neurological: CN II-XII grossly intact, no focal motor or sensory deficits noted Skin: Intact with no visualized rashes Psych: Normal affect and mood Limitations: no limitations Course Vital Signs 07/23/24 15:01 Temperature 98.0 F Pulse Rate 78 Respiratory 16 Rate Blood Pressure 147/81 O2 Sat by Pulse 96 Oximetry Medical Decision Making - Medical Decision Making Was pt. sent in by a medical professional or institution (ROSALIE Flaherty, EXTENSION SERVICE SPECIALIST IN CHARGE, urgent care, hospital, or shelter...) When possible be specific @ -[No] Did you speak to anyone other than the patient for history (EMS, parent, family, police, friend...)? What history was obtained from this source @ -[No] Did you review nursing and triage notes (agree or disagree)? Why? @ -[I reviewed and agree with nursing and triage notes] Were old charts reviewed (outside hosp., previous admission, EMS record, old EKG, old radiological studies, urgent care reports/EKG's, shelter records)? Report findings @ -[No old charts were reviewed] Differential Diagnosis (chest pain, altered mental status, abdominal pain women, abdominal pain men, vaginal bleeding, musculoskeletal, weakness, fever, dyspnea, syncope, headache, dizziness, GI bleed, back pain, seizure, CVA, palpatations, mental health)? @ -Differential Weakness: Hypoglycemia, shock, sepsis, hyponatremia, anemia, infection, NM, ETOH, adverse medicine reaction, overdose, stroke, this is not meant to be an all-inclusive list. EKG interpreted by me (3pts min.). @ -[None done] X-rays interpreted by me (1pt min.). @ -Foot x-ray is nonacute CT interpreted by me (1pt min.). @ -[None done] U/S interpreted by me (1pt. min.). @ -[None done] What testing was considered but not performed or refused? (CT, X-rays, U/S, labs)? Why? @ -[None] What meds were considered but not given or refused? Why? @ -[None] Was smoking cessation discussed for >3mins.? @ -[No] Were there social determinants of health that impacted care today? How? (Magdiel elessness, low income, unemployed, alcoholism, drug addiction, transportation, low edu. Level, literacy, decrease access to med. care, halfway, rehab)? @ -[No] Was there de-escalation of care discussed even if they declined (Discuss DNR or withdrawal of care, Hospice)? DNR status @ -[No] What co-morbidities impacted this encounter? (DM, HTN, Smoking, COPD, CAD, Cancer, CVA, ARF, Chemo, Hep., AIDS, mental health diagnosis, sleep apnea, morbid obesity)? @ -[None] Was patient admitted / discharged? Hospital course, mention meds given and route, prescriptions, significant lab abnormalities, going to OR and other pertinent info. @ -53-year-old diabetic female presents with hyperglycemia, nausea and left foot pain that is atraumatic. Vital signs stable. Labs shows hyperglycemia. Glucose treated. Repeat glucose 299. X-rays unremarkable. Patient tolerating oral intake at bedside. Patient discharged Did you discuss the management of the patient with other professionals (professionals i.e. , PA, EXTENSION SERVICE SPECIALIST IN CHARGE, lab, RT, psych nurse, social work nurse, instructional systems specialist, teacher, information management officer, caser up)? Give summary @ -[No] Was critical care preformed (if so, how long)? @ -[No] Undiagnosed new problem with uncertain prognosis? @ -[No] Drug Therapy requiring intensive monitoring for toxicity (Heparin, Nitro, Insulin, Cardizem)? @ -[No] Were any procedures done? @ -[No] Diagnosis/symptom? Acute, or Chronic, or Acute on Chronic? Uncomplicated (without systemic symptoms) or Complicated (systemic symptoms)? @ -Hyperglycemia, foot strain Side effects of treatment? @ -[No] Exacerbation, Progression, or Severe Exacerbation? @ -[No] Poses a threat to life or bodily function? How? (Chest pain, [place], [place], pneumonia, PE, COPD, DKA, ARF, appy, cholecystitis, CVA, Diverticulitis, Homicidal, Suic idal, threat to staff... and all critical care pts) @ -[No] - Lab Data Result diagrams: 07/23/24 16:15 07/23/24 16:15 Lab Results 07/23/24 07/23/24 07/23/24 Range/Units 16:15 16:15 16:55 WBC 10.80 H (4.50-10.00) 10*3/uL RBC 4.82 (4.10-5.20) 10*6/uL Hgb 12.8 (12.0-15.0) g/dL Hct 38.5 (37.2-46.3) % MCV 79.9 L (80.0-97.0) fL MCH 26.6 L (27.0-32.0) pg MCHC 33.2 (32.0-37.0) g/dL Plt Count 445 H (140-440) 10*3/uL MPV 8.8 L (9.5-12.2) fL Immature Gran % (Auto) 0.2 % Neutrophils % 67.9 % Lymphocytes % 24.0 % Monocytes % 4.9 % Eosinophils % 2.4 % Basophils % 0.6 % Immature Gran # 0.02 (0.00-0.04) 10*3/uL Neutrophils # 7.33 (1.80-7.70) 10*3/uL Lymphocytes # 2.59 (0.90-5.00) 10*3/uL Monocytes # 0.53 (0.20-1.00) 10*3/uL Eosinophils # 0.26 (0.04-0.35) 10*3/uL Basophils # 0.07 (0.00-0.10) 10*3/uL Sodium 131 L (137-145) mmol/L Potassium 5.0 (3.5-5.1) mmol/L Chloride 96 L (98-107) mmol/L Carbon Dioxide 21 L (22-30) mmol/L Anion Gap 14 mmol/L BUN 22 H (7-17) mg/dL Creatinine 0.72 (0.52-1.04) mg/dL Est GFR (CKD-EPI)AfAm >90 (>60 ml/min/1.73 sqM) Est GFR (CKD-EPI)NonAf >90 (>60 ml/min/1.73 sqM) Glucose 502 H* (74-99) mg/dL POC Glucose (mg/dL) 290 H (70-110) mg/dL POC Glu Fountain Manager ID Sandra Webber Calcium 9.1 (8.4-10.2) mg/dL Disposition Clinical Impression: Hyperglycemia Disposition: HOME SELF-CARE Instructions (If sedation given, give patient instructions): Diabetic Hy perglycemia (ED) Is patient prescribed a controlled substance at d/c from ED?: No Referrals: Ronel Manzano MD [Primary Care Provider] - 1-2 days Time of Disposition: 17:02
[2024-07-23] MEDS: SODIUM CHLORIDE 0.9% 1,000 ML IV STA (16:12)
[2024-07-23] MEDS: INSULIN REGULAR 100 UNIT/ML VIAL (IV) IV ONE ×2 (16:12→16:59)
[2024-07-23 16:21] LABS: Basophils # (A) 0.07 10*3/uL (0.00-0.10); Basophils % (A) 0.6 %; Eosinophils # (A) 0.26 10*3/uL (0.04-0.35); Eosinophils % (A) 2.4 %; HCT 38.5 % (37.2-46.3); HGB 12.8 g/dL (12.0-15.0); Lymphocytes # (A) 2.59 10*3/uL (0.90-5.00); MCH 26.6 pg (27.0-32.0); MCHC 33.2 g/dL (32.0-37.0); MCV 79.9 fL (80.0-97.0); Mean Platelet Volume 8.8 fL (9.5-12.2); Monocytes # (A) 0.53 10*3/uL (0.20-1.00); Monocytes % (A) 4.9 %; Neutrophils # (A) 7.33 10*3/uL (1.80-7.70); Neutrophils % (A) 67.9 %; Platelet Count 445 10*3/uL (140-440); RBC 4.82 10*6/uL (4.10-5.20); RDW 16.3 % (11.5-14.5)
--- NOTE | 2024-07-23 16:31 | XR ---
EXAMINATION TYPE: XR foot complete LT DATE OF EXAM: 07/23/2024 4:25 PM INDICATION: Patient age:Female; 53 years old; Reason for study: lateral foot pain; PHH. pain COMPARISON: Left foot radiograph 08/25/2010 TECHNIQUE: The left foot was examined in the AP, oblique, and lateral projections. FINDINGS: No evidence of any acute osseous pathology. No evidence of soft tissue swelling. Joints are preserve d. Plantar calcaneal enthesophyte. IMPRESSION: No evidence of acute fracture. [facility], , 07/23/2024 4:29 PM
[2024-07-23] MEDS: ONDANSETRON 4 MG/2 ML VIAL IVP STA (16:32)
[2024-07-23 16:36] LABS: African American GFR (CKD) >90 (>60 ml/min/1.73 sqM); Anion Gap 14 mmol/L; Blood Urea Nitrogen 22 mg/dL (7-17); Calcium 9.1 mg/dL (8.4-10.2); Carbon Dioxide 21 mmol/L (22-30); Chloride 96 mmol/L (98-107); Non-African American GFR(CKD) >90 (>60 ml/min/1.73 sqM); Sodium 131 mmol/L (137-145)
[2024-07-23 16:39] LABS: Glucose 502 mg/dL (74-99)
[2024-07-23 16:57] LABS: Glucose,Whole Blood 290 mg/dL (70-110)
[2024-07-23 17:19] VITALS: BP 136/78; PULSE 80; RESP 18; TEMP 98.2
== END 2024-07-23 17:19 | disposition home or self-care (01) ==
LOC: EC 14:55
DX: S96.912A Strain of unspecified muscle and tendon at ankle and foot level, left foot, initial encounter (principal); E11.65 Type 2 diabetes mellitus with hyperglycemia; F17.290 Nicotine dependence, other tobacco product, uncomplicated; Z88.1 Allergy status to other antibiotic agents; X58.XXXA Exposure to other specified factors, initial encounter
CPT/HCPCS: 36415; 80048; 85025; 73630; 99284; 96374; 96361; J2405

== ENCOUNTER 2024-07-24 13:47 | Emergency (ER) | payer MEDICARE ==
[2024-07-24 13:56] VITALS: RESP 18
[2024-07-24 14:15] LABS: Glucose,Whole Blood >600 mg/dL (70-110)
--- NOTE | 2024-07-24 14:25 | ED ---
General Adult HPI - General Chief complaint: Recheck/Abnormal Lab/Rx Stated complaint: generalized pain Source: patient, EMS Mode of arrival: EMS Limitations: no limitations - History of Present Illness Initial comments: Dictation was produced using [employer] dictation software. please excuse any grammatical, word or spelling errors. Chief Complaint: 53-year-old female presents with acute on chronic foot pain History of Present Illness: Patient is a 53-year-old female she has history of chronic foot pain presents to the ER today for acute on chronic foot pain of the left foot. Patient is well-known to emergency department. She had a blood glucose checked by EMS found to be elevated to the 500s. Patient has extensive history of uncontrolled diabetes. The ROS documented in this emergency department record has been reviewed and confirmed by me. Those systems with pertinent positive or negative responses have been documented in the HPI. All other systems are other negative and/or noncontributory. - Related Data Home Medications Medication Instructions Recorded Confirmed Atorvastatin [Lipitor] 80 mg PO HS 06/25/19 07/23/24 lisinopriL 40 mg PO DAILY 09/24/20 07/23/24 traZODone HCL 50 mg PO HS 01/11/21 07/23/24 Albuterol Inhaler [Ventolin Hfa 2 puff INHALATION RT-QID PRN 03/01/23 07/23/24 Inhaler] Insulin Glargine,Hum.rec.anlog 30 units SQ HS 07/30/23 07/23/24 [Lantus Solostar Pen] Ezetimibe [Zetia] 10 mg PO HS 02/17/24 07/23/24 Insulin Aspart (Niacinamide) 20 units SQ AC-TID 02/17/24 07/23/24 [Fiasp 100 Unit/ml Flextouch Pen] Nystatin 100,000 Unit/gm Powd 1 applic TOPICAL BID PRN 02/17/24 07/23/24 [Mycostatin Powder] Pantoprazole [Protonix] 40 mg PO DAILY 02/17/24 07/23/24 metFORMIN HCL 1,000 mg PO BID 06/13/24 07/23/24 Previous Rx's Medication Instructions Recorded amLODIPine [Norvasc] 10 mg PO DAILY #30 tab 03/11/23 hydrALAZINE HCL [Apresoline] 25 mg PO BID #60 tab 03/11/23 Ondansetron Odt [Zofran ODT] 4 mg PO Q8HR PRN #10 tab 03/29/24 Ibuprofen [Motrin] 600 mg PO Q8HR PRN 30 Days #30 tab 04/11/24 Famotidine [Pepcid] 20 mg PO DAILY #20 tablet 04/18/24 Ipratropium [place] 0.06%Nasal 2 spray EA NOSTRIL BID #15 ml 06/07/24 [Atrovent Nasal 0.06%] Acetaminophen-Codeine 300-30mg 1 tab PO Q4H PRN #10 tablet 06/30/24 [Tylenol w/codeine #3] Allergies Allergy/AdvReac Type Severity Reaction Status Date / Time levofloxacin [From Levaquin] Allergy Rash/Hives Verified 07/24/24 13:57 Review of Systems ROS Statement: Those systems with pertinent positive or pertinent negative responses have been documented in the HPI. ROS Other: All systems not noted in ROS Statement are negative. Past Medical History Past Medical History: Diabetes Mellitus, GERD/Reflux, Hyperlipidemia, Hypertension, Syncope Additional Past Medical History / Comment(s): Pt recently admitted to [facility] on 07/21/21 with uncontrolled IDDM and hyperkalemia. Other hx: Recurrent pancreatitis, hypertriglyceridemia, elevated lipase, IDDM type II, UTI, chronic low back pain, bulging discs, dental abscesses in past. History of Any Multi-Drug Resistant Organisms: MRSA Date of last positivie culture/infection: 03/01/23 MDRO Source:: Abdomen Past Surgical History: Tubal Ligation Additional Past Surgical History / Comment(s): Age 7 had VSD repair, tumor removal 03/2023 Past Anesthesia/Blood Transfusion Reactions: No Reported Reaction Past Psychological History: No Psychological Hx Reported Smoking Status: Former smoker, Second hand smoke exposure, Vaper Past Alcohol Use History: None Reported Past Drug Use History: None Reported - Past Family History Mother Family Medical History: No Reported History Additional Family Medical History / Comment(s): Mother was healthy. She is , pt cannot recall cause of . Father Family Medical History: Pneumonia Additional Family Medical History / Comment(s): Father at the age of 67yrs from pneumonia General Exam - General Exam Comments Initial Comments: General: Well-appearing, nontoxic, no acute distress. Head: Normocephalic, atraumatic Eyes: PERRLA, EOMI ENT: Airway patent Chest: Nonlabored breathing Skin: No visual rash, normal skin tone Neuro: Alert and oriented 3 Musculoskeletal: No gross abnormalities Limitations: no limitations Course Vital Signs 07/24/24 13:49 Temperature 99.4 F Pulse Rate 75 Respiratory 18 Rate Blood Pressure 131/83 O2 Sat by Pulse 98 Oximetry Medical Decision Making - Medical Decision Making Was pt. sent in by a medical professional or institution (, PA, QUALITY IMPROVEMENT CONSULTANT, urgent care, hospital, or snf...) When possible be specific @ -No Did you speak to anyone other than the patient for history (EMS, parent, family, police, friend...)? What history was obtained from this source @ -No Did you review nursing and triage notes (agree or disagree)? Why? @ -I reviewed and agree with nursing and triage notes Were old charts reviewed (outside hosp., previous admission, EMS record, old EKG, old radiological studies, urgent care reports/EKG's, snf records)? Report findings @ -No old charts were reviewed Differential Diagnosis (chest pain, altered mental status, abdominal pain women, abdominal pain men, vaginal bleeding, musculoskeletal, weakness, fever, dyspnea, syncope, headache, dizziness, GI bleed, back pain, seizure, CVA, palpatations, mental health)? @ -Fracture, foot strain, foot contusion EKG interpreted by me (3pts min.). @ -None done X-rays interpreted by me (1pt min.). @ -None done CT interpreted by me (1pt min.). @ -None done U/S interpreted by me (1pt. min.). @ -None done What testing was considered but not performed or refused? (CT, X-rays, U/S, labs)? Why? @ -None What meds were considered but not given or refused? Why? @ -None Was smoking cessation discussed for >3mins.? @ -No Were there social determinants of health that impacted care today? How? (Homelessness, low income, unemployed, alcoholism, drug addiction, transportation, low edu. Level, literacy, decrease access to med. care, custodial, rehab)? @ -No Was there de-escalation of care discussed even if they declined (Discuss DNR or withdrawal of care, Hospice)? DNR status @ -No What co-morbidities impacted this encounter? (DM, HTN, Smoking, COPD, CAD, Cancer, CVA, ARF, Chemo, Hep., AIDS, mental health diagnosis, sleep apnea, morbid obesity)? @ -None Was patient admitted / discharged? Hospital course, mention meds given and route, prescriptions, significant lab abnormalities, going to OR and other pertinent info. @ -53-year-old female acute on chronic foot pain. Patient was seen by me yesterday and had x-rays done found to be unremarkable. Patient is well-known to the emergency department multiple visitations for a myriad of complaints. Ph ysical examination is benign. Patient again hyperglycemic given insulin. Blood glucose improved. Patient discharged. Patient given analgesics for her pain Did you discuss the management of the patient with other professionals (professionals i.e. , PA, QUALITY IMPROVEMENT CONSULTANT, lab, RT, psych nurse, social media content specialist, fig bar machine operator, teacher, probation and parole officer, case technician)? Give summary @ -No Was critical care preformed (if so, how long)? @ -No Undiagnosed new problem with uncertain prognosis? @ -No Drug Therapy requiring intensive monitoring for toxicity (Heparin, Nitro, Insulin, Cardizem)? @ -No Were any procedures done? @ -No Diagnosis/symptom? Acute, or Chronic, or Acute on Chronic? Uncomplicated (without systemic symptoms) or Complicated (systemic symptoms)? @ -Foot strain, hyperglycemia Side effects of treatment? @ -No Exacerbation, Progression, or Severe Exacerbation? @ -No Poses a threat to life or bodily function? How? (Chest pain, [place], [place], pneumonia, PE, COPD, DKA, ARF, appy, cholecystitis, CVA, Diverticulitis, Homicidal, Suicidal, threat to staff... and all critical care pts) @ -No - Lab Data Lab Results 07/24/24 07/24/24 07/24/24 Range/Units 14:13 15:11 16:06 POC Glucose (mg/dL) >600 H* 520 H* 352 H (70-110) mg/dL POC Glu Range Feeder ID September Disposition Clinical Impression: Foot pain Disposition: HOME SELF-CARE Condition: Fair Is patient prescribed a controlled substance at d/c from ED?: No Referrals: Ronel Manzano MD [Primary Care Provider] - 1-2 days Flavia Joyner DPM [STAFF PHYSICIAN] - 1-2 days Time of Disposition: 16:25
[2024-07-24] MEDS: INSULIN LISPRO (HumaLOG) 100 UNIT/ML 10 mL VL SQ ONE (14:27)
[2024-07-24] MEDS: HYDROcodone/APAP 5-325MG 1 EACH TAB PO STA (14:31)
[2024-07-24 15:13] LABS: Glucose,Whole Blood 520 mg/dL (70-110)
[2024-07-24] MEDS: INSULIN REGULAR 100 UNIT/ML VIAL (IV) IV ONE (15:24)
[2024-07-24 16:07] LABS: Glucose,Whole Blood 352 mg/dL (70-110)
[2024-07-24] MEDS: ACET/COD 300 MG/30 MG STARTER PACK 6 TAB BTL PO STA (16:46)
[2024-07-24 16:51] VITALS: BP 134/85; PULSE 77; TEMP 98.2
== END 2024-07-24 16:50 | disposition home or self-care (01) ==
LOC: EC 13:47
DX: S96.912A Strain of unspecified muscle and tendon at ankle and foot level, left foot, initial encounter (principal); E11.9 Type 2 diabetes mellitus without complications; F17.290 Nicotine dependence, other tobacco product, uncomplicated; Z79.4 Long term (current) use of insulin; Z79.84 Long term (current) use of oral hypoglycemic drugs; Z88.1 Allergy status to other antibiotic agents; X58.XXXA Exposure to other specified factors, initial encounter
CPT/HCPCS: 36415; 99284

== ENCOUNTER 2024-07-27 06:06 | Emergency (ER) | payer MEDICARE, OTHER ==
[2024-07-27 06:14] LABS: Glucose,Whole Blood 594 mg/dL (70-110)
[2024-07-27] MEDS: INSULIN LISPRO (HumaLOG) 100 UNIT/ML 10 mL VL SQ ONE ×2 (06:52→07:57)
--- NOTE | 2024-07-27 06:55 | ED ---
General Adult HPI - General Chief complaint: Recheck/Abnormal Lab/Rx Stated complaint: Hyperglycemia Time Seen by Provider: 07/27/24 06:14 Source: patient, EMS, RN notes reviewed Mode of arrival: EMS Limitations: no limitations - History of Present Illness Initial comments: 53-year-old female presents emergency department complaint of hyperglycemia, pain. Patient has chronic pain is in the emergency department several times a week for similar complaints. Patient states that she has not been eating well she states she has been eating very high carb food, sugary drinks. Patient states that she has not taken any recent insulin. She denies any chest pain or shortness of breath no fevers or chills no other complaints. - Related Data Home Medications Medication Instructions Recorded Confirmed Atorvastatin [Lipitor] 80 mg PO HS 06/25/19 07/23/24 lisinopriL 40 mg PO DAILY 09/24/20 07/23/24 traZODone HCL 50 mg PO HS 01/11/21 07/23/24 Albuterol Inhaler [Ventolin Hfa 2 puff INHALATION RT-QID PRN 03/01/23 07/23/24 Inhaler] Insulin Glargine,Hum.rec.anlog 30 units SQ HS 07/30/23 07/23/24 [Lantus Solostar Pen] Ezetimibe [Zetia] 10 mg PO HS 02/17/24 07/23/24 Insulin Aspart (Niacinamide) 20 units SQ AC-TID 02/17/24 07/23/24 [Fiasp 100 Unit/ml Flextouch Pen] Nystatin 100,000 Unit/gm Powd 1 applic TOPICAL BID PRN 02/17/24 07/23/24 [Mycostatin Powder] Pantoprazole [Protonix] 40 mg PO DAILY 02/17/24 07/23/24 metFORMIN HCL 1,000 mg PO BID 06/13/24 07/23/24 Previous Rx's Medication Instructions Recorded amLODIPine [Norvasc] 10 mg PO DAILY #30 tab 03/11/23 hydrALAZINE HCL [Apresoline] 25 mg PO BID #60 tab 03/11/23 Ondansetron Odt [Zofran ODT] 4 mg PO Q8HR PRN #10 tab 03/29/24 Ibuprofen [Motrin] 600 mg PO Q8HR PRN 30 Days #30 tab 04/11/24 Famotidine [Pepcid] 20 mg PO DAILY #20 tablet 04/18/24 Ipratropium [place] 0.06%Nasal 2 spray EA NOSTRIL BID #15 ml 06/07/24 [Atrovent Nasal 0.06%] Acetaminophen-Codeine 300-30mg 1 tab PO Q4H PRN #10 tablet 06/30/24 [Tylenol w/codeine #3] Ibuprofen [Motrin] 600 mg PO Q8HR PRN #20 tab 07/27/24 Allergies Allergy/AdvReac Type Severity Reaction Status Date / Time levofloxacin [From Levaquin] Allergy Rash/Hives Verified 07/27/24 06:10 Review of Systems ROS Statement: Those systems with pertinent positive or pertinent negative responses have been documented in the HPI. ROS Other: All systems not noted in ROS Statement are negative. Past Medical History Past Medical History: Diabetes Mellitus, GERD/Reflux, Hyperlipidemia, Hypertension, Syncope Additional Past Medical History / Comment(s): Pt recently admitted to [facility] on 07/21/21 with uncontrolled IDDM and hyperkalemia. Other hx: Recurrent pancreatitis, hypertriglyceridemia, elevated lipase, IDDM type II, UTI, chronic low back pain, bulging discs, dental abscesses in past. History of Any Multi-Drug Resistant Organisms: MRSA Date of last positivie culture/infection: 03/01/23 MDRO Source:: Abdomen Past Surgical History: Tubal Ligation Additional Past Surgical History / Comment(s): Age 7 had VSD repair, tumor removal 03/2023 Past Anesthesia/Blood Transfusion Reactions: No Reported Reaction Past Psychological History: No Psychological Hx Reported Smoking Status: Former smoker, Second hand smoke exposure, Vaper Past Alcohol Use History: None Reported Past Drug Use History: None Reported - Past Family History Mother Family Medical History: No Reported History Additional Family Medical History / Comment(s): Mother was healthy. She is , pt cannot recall cause of . Father Family Medical History: Pneumonia Additional Family Medical History / Comment(s): Father at the age of 67yrs from pneumonia General Exam Limitations: no limitations General appearance: alert, in no apparent distress Head exam: Present: atraumatic, normocephalic, normal inspection Eye exam: Present: normal appearance, PERRL, EOMI. Absent: scleral icterus, conjunctival injection, periorbital swelling ENT exam: Present: normal exam, normal oropharynx, mucous membranes moist Neck exam: Present: normal inspection, full ROM. Absent: tenderness, meningismus, lymphadenopathy Respiratory exam: Present: normal lung sounds bilaterally. Absent: respiratory distress, wheezes, rales, rhonchi, stridor Cardiovascular Exam: Present: regular rate, normal rhythm, normal heart sounds. Absent: systolic murmur, diastolic murmur, rubs, gallop, clicks GI/Abdominal exam: Present: soft, normal bowel sounds. Absent: distended, tenderness, guarding, rebound, rigid Course Vital Signs 07/27/24 06:07 Temperature 98.5 F Pulse Rate 62 Respiratory 18 Rate Blood Pressure 151/85 O2 Sat by Pulse 99 Oximetry Medical Decision Making - Medical Decision Making Was pt. sent in by a medical professional or institution (, ROSALIE, POISON INFORMATION SPECIALIST, urgent care, hospital, or [place] health [place] facility...) When possible be specific @ -No Did you speak to anyone other than the patient for history (EMS, parent, family, police, friend...)? What history was obtained from this source @ -No Did you review nursing and triage notes (agree or disagree)? Why? @ -I reviewed and agree with nursing and triage notes Were old charts reviewed (outside hosp., previous admission, EMS record, old EKG, old radiological studies, urgent care reports/EKG's, [place] health [facility] facility records)? Report findings @ -No old charts were reviewed Differential Diagnosis (chest pain, altered mental status, abdominal pain women, abdominal pain men, vaginal bleeding, weakness, fever, dyspnea, syncope, headache, dizziness, GI bleed, back pain, seizure, CVA, palpatations, mental health, musculoskeletal)? @ -Hyperglycemia, uncontrolled diabetes, chronic pain EKG interpreted by me (3pts min.). @ -None X-rays interpreted by me (1pt min.). @ -None done CT interpreted by me (1pt min.). @ -None done U/S interpreted by me (1pt. min.). @ -None done What testing was considered but not performed or refused? (CT, X-rays, U/S, labs)? Why? @ -None What meds were considered but not given or refused? Why? @ -None Did you discuss the management of the patient with other professionals (professionals i.e. Dr., PA, POISON INFORMATION SPECIALIST, lab, RT, psych nurse, social worker masters, billing associate, teacher, senior escrow officer, case worker)? Give summary @ -No Was smoking cessation discussed for >3mins.? @ -No Was critical care preformed (if so, how long)? @ -No Were there social determinants of health that impacted care today? How? (Homelessness, low income, unemployed, alcoholism, drug addiction, transportation, low edu. Level, literacy, decrease access to med. care, longterm, rehab)? @ -No Was there de-escalation of care discussed even if they declined (Discuss DNR or withdrawal of care, Hospice)? DNR status @ -No What co-morbidities impacted this encounter? (DM, HTN, Smoking, COPD, CAD, Cancer, CVA, ARF, Chemo, Hep., AIDS, mental health diagnosis, sleep apnea, morbid obesity)? @ -None Was patient admitted / discharged? Hospital course, mention meds given and route, prescriptions, significant lab abnormalities, going to OR and other pertinent info. @ -Discharge patient's blood sugars improved. Patient with chronic pain patient was discharged with anti-inflammatories return for as discussed. Undiagnosed new problem with uncertain prognosis? @ -No Drug Therapy requiring intensive monitoring for toxicity (Heparin, Nitro, Insulin, Cardizem)? @ -No Were any procedures done? @ -No Diagnosis/symptom? @Hyperglycemia, chronic pain Acute, or Chronic, or Acute on Chronic? @ -Acute Uncomplicated (without systemic symptoms) or Complicated (systemic symptoms)? @ -[Uncomplicated Side effects of treatment? @ -No Exacerbation, Progression, or Severe Exacerbation? @ -No Poses a threat to life or bodily function? How? (Chest pain, [place], [place], pneumonia, PE, COPD, DKA, ARF, appy, cholecystitis, CVA, Diverticulitis, Homicidal, Suicidal, threat to staff... and all critical care pts) @ -No - Lab Data Lab Results 07/27/24 07/27/24 07/27/24 Range/Units 06:11 07:23 08:41 POC Glucose (mg/dL) 594 H* 529 H* 246 H (70-110) mg/dL POC Glu Director Center ID Randi Lyn Disposition Clinical Impression: Hyperglycemia, Chronic pain Disposition: HOME SELF-CARE Condition: Stable Instructions (If sedation given, give patient instructions): Diabetic Hyperglycemia (ED) Additional Instructions: Please return to the Emergency Department if symptoms worsen or any other concerns. Prescriptions: Ibuprofen [Motrin] 600 mg PO Q8HR PRN #20 tab PRN Reason: Pain Is patient prescribed a controlled substance at d/c from ED?: No Referrals: Ronel Manzano MD [Primary Care Provider] - 1-2 days Time of Disposition: 08:49
[2024-07-27 07:31] LABS: Glucose,Whole Blood 529 mg/dL (70-110)
[2024-07-27] MEDS: SODIUM CHLORIDE 0.9% 1,000 ML IV SCH (07:36)
[2024-07-27] MEDS: KETOROLAC 15 MG/ML 1 ML VIAL IVP STA (07:56)
[2024-07-27] MEDS: INSULIN REGULAR 100 UNIT/ML VIAL (IV) IV ONE (07:57)
[2024-07-27] MEDS: INSULIN GLARGINE (LANTUS) 100 UNIT/ML SYR SQ STA (08:07)
[2024-07-27 08:42] LABS: Glucose,Whole Blood 246 mg/dL (70-110)
[2024-07-27 09:19] VITALS: BP 162/96; PULSE 95; RESP 20; TEMP 98
== END 2024-07-27 09:22 | disposition home or self-care (01) ==
LOC: EC 06:06
DX: E11.65 Type 2 diabetes mellitus with hyperglycemia (principal); G89.29 Other chronic pain; F17.290 Nicotine dependence, other tobacco product, uncomplicated; Z88.1 Allergy status to other antibiotic agents; Z79.4 Long term (current) use of insulin; Z79.84 Long term (current) use of oral hypoglycemic drugs
CPT/HCPCS: 36415; 99285; 96374; 96361; J1885

== ENCOUNTER 2024-07-30 03:36 | Emergency (ER) | payer MEDICARE, OTHER ==
[2024-07-30 03:44] VITALS: RESP 18; TEMP 97.8
--- NOTE | 2024-07-30 03:57 | ED ---
General Adult HPI - General Chief complaint: Nausea/Vomiting/Diarrhea Stated complaint: Pain Time Seen by Provider: 07/30/24 03:44 Source: patient Mode of arrival: EMS Limitations: no limitations - History of Present Illness Initial comments: Patient is a 53-year-old female past medical history of diabetes, chronic pain presenting here today for chronic pain. States she has "pain all over". Consistent with her chronic pain. States she comes in tonight because she cannot sleep. She states she also had nausea and NBNB emesis on Saturday. She has since been able to tolerate p.o. intake. She denies any new symptoms, denies difficulty in breathing, abdominal pain, fevers or chills. Took tylenol yesterday and ibuprofen 2 days ago but has not taken anything since. States that she has been eating a healthy diet of salads and once in a while will eat some fruit. - Related Data Home Medications Medication Instructions Recorded Confirmed Atorvastatin [Lipitor] 80 mg PO HS 06/25/19 07/23/24 lisinopriL 40 mg PO DAILY 09/24/20 07/23/24 traZODone HCL 50 mg PO HS 01/11/21 07/23/24 Albuterol Inhaler [Ventolin Hfa 2 puff INHALATION RT-QID PRN 03/01/23 07/23/24 Inhaler] Insulin Glargine,Hum.rec.anlog 30 units SQ HS 07/30/23 07/23/24 [Lantus Solostar Pen] Ezetimibe [Zetia] 10 mg PO HS 02/17/24 07/23/24 Insulin Aspart (Niacinamide) 20 units SQ AC-TID 02/17/24 07/23/24 [Fiasp 100 Unit/ml Flextouch Pen] Nystatin 100,000 Unit/gm Powd 1 applic TOPICAL BID PRN 02/17/24 07/23/24 [Mycostatin Powder] Pantoprazole [Protonix] 40 mg PO DAILY 02/17/24 07/23/24 metFORMIN HCL 1,000 mg PO BID 06/13/24 07/23/24 Previous Rx's Medication Instructions Recorded amLODIPine [Norvasc] 10 mg PO DAILY #30 tab 03/11/23 hydrALAZINE HCL [Apresoline] 25 mg PO BID #60 tab 12/04/23 Ondansetron Odt [Zofran ODT] 4 mg PO Q8HR PRN #10 tab 03/29/24 Ibuprofen [Motrin] 600 mg PO Q8HR PRN 30 Days #30 tab 04/11/24 Famotidine [Pepcid] 20 mg PO DAILY #20 tablet 04/18/24 Ipratropium [place] 0.06%Nasal 2 spray EA NOSTRIL BID #15 ml 06/07/24 [Atrovent Nasal 0.06%] Acetaminophen-Codeine 300-30mg 1 tab PO Q4H PRN #10 tablet 06/30/24 [Tylenol w/codeine #3] Ibuprofen [Motrin] 600 mg PO Q8HR PRN #20 tab 07/27/24 Allergies Allergy/AdvReac Type Severity Reaction Status Date / Time levofloxacin [From Levaquin] Allergy Rash/Hives Verified 07/30/24 03:39 Review of Systems ROS Statement: Those systems with pertinent positive or pertinent negative responses have been documented in the HPI. ROS Other: All systems not noted in ROS Statement are negative. Past Medical History Past Medical History: Diabetes Mellitus, GERD/Reflux, Hyperlipidemia, Hypertension, Syncope Additional Past Medical History / Comment(s): Pt recently admitted to [facility] on 07/21/21 with uncontrolled IDDM and hyperkalemia. Other hx: Recurrent pancreatitis, hypertriglyceridemia, elevated lipase, IDDM type II, UTI, chronic low back pain, bulging discs, dental abscesses in past. History of Any Multi-Drug Resistant Organisms: MRSA Date of last positivie culture/infection: 03/01/23 MDRO Source:: Abdomen Past Surgical History: Tubal Ligation Additional Past Surgical History / Comment(s): Age 7 had VSD repair, tumor removal 03/2023 Past Anesthesia/Blood Transfusion Reactions: No Reported Reaction Past Psychological History: No Psychological Hx Reported Smoking Status: Former smoker, Second hand smoke exposure, Vaper Past Alcohol Use History: None Reported Past Drug Use History: None Reported - Past Family History Mother Family Medical History: No Reported History Additional Family Medical History / Comment(s): Mother was healthy. She is , pt cannot recall cause of . Father Family Medical History: Pneumonia Additional Family Medical History / Comment(s): Father at the age of 67yrs from pneumonia General Exam - General Exam Comments Initial Comments: PE: CONSTITUTIONAL: No apparent distress, well appearing SKIN: Warm, dry, no jaundice, hives or petechiae EYES: Pupils are equally round, extraocular movements intact without nystagmus, clear conjunctiva, non-icteric sclera HENT: Normocephalic, atraumatic, moist mucus membranes, oropharynx clear without exudates NECK: , Full range of motion, normal appearance PULMONARY: Clear to auscultation without wheezes, rhonchi, or rales, normal excursion, no accessory muscle use and no stridor CARDIOVASCULAR: Regular rate, rhythm, normal S1 and S2. No appreciated murmurs, rubs or gallops. Strong radial pulses with intact distal perfusion. No lower extremity edema GASTROINTESTINAL: Soft, active bowel sounds throughout, non-tender, non- distended, no palpable masses, no rebound or guarding. No hepatosplenomegaly MUSCULOSKELETAL: Extremities have no gross deformity, no edema, redness, or swelling. NEUROLOGIC:_a/o x 3, GCS 15, normal mentation and speech. Moves all extremities x 4 without motor or sensory deficit PSYCHIATRIC:_normal mood and affect, thought process is clear and linear Limitations: no limitations Course Vital Signs 07/30/24 07/30/24 03:39 04:46 Temperature 97.8 F Pulse Rate 64 63 Respiratory 18 18 Rate Blood Pressure 146/89 167/93 O2 Sat by Pulse 99 97 Oximetry Medical Decision Making - Medical Decision Making Was pt. sent in by a medical professional or institution (ROSALIE Flaherty, UPHOLSTERED GOODS CRAFTER, urgent care, hospital, or shelter...) When possible be specific @ -No Did you speak to anyone other than the patient for history (EMS, parent, family, police, friend...)? What history was obtained from this source @ -No Did you review nursing and triage notes (agree or disagree)? Why? @ -I reviewed nursing and triage notes-disagree with nursing and triage notes, patient currently does not have any vomiting, nausea and vomiting was on Saturday and has since improved and she is able to tolerate p.o. intake Were old charts reviewed (outside hosp., previous admission, EMS record, old EKG, old radiological studies, urgent care reports/EKG's, shelter records)? Report findings @ -Medical records reviewed-patient is well-known to this emergency department, multiple prior visits for similar complaints of chronic pain, foot pain, nausea and vomiting, complaints are typically chronic in nature, Was last seen on 07/27/2024 for hyperglycemia and pain, 07/24/24 for left foot pain, on 07/23/2024 for multiple complaints including left foot pain, hurting all over and nausea, at that point patient was hyperglycemic, foot x-ray was obtained and unremarkable, patient tolerated p.o. intake and was discharged Differential Diagnosis (chest pain, altered mental status, abdominal pain women, abdominal pain men, vaginal bleeding, weakness, fever, dyspnea, syncope, headache, dizziness, GI bleed, back pain, seizure, CVA, palpatations, mental health, musculoskeletal)? Differential Musculoskeletal Muscular strain, contusion, ligament sprain, fracture, arthritis, septic arthritis, bursitis, cellulitis, muscle spasm, nerve compression, DVT, arterial occlusion, herpes zoster, electrolyte abnormality, tumor.... This is not meant to be in all inclusive list EKG interpreted by me (3pts min.). @ -As above X-rays interpreted by me (1pt min.). @ -None done CT interpreted by me (1pt min.). @ -None done U/S interpreted by me (1pt. min.). @ -None done What testing was considered but not performed or refused? (CT, X-rays, U/S, labs)? Why? @Basic labs were considered however patient is here frequently for similar symptoms, and today is here for chronic pain, is well-appearing, no acute distress vital signs stable, exam is benign with lungs clear to auscultation bilaterally, soft and nontender abdomen, extremities are atraumatic, mucous membranes are moist, therefore patient's pain will be treated and she will be d ischarged home What meds were considered but not given or refused? Why? @ -None Did you discuss the management of the patient with other professionals (professionals i.e. , PA, UPHOLSTERED GOODS CRAFTER, lab, RT, psych nurse, social services counselor, litigation manager, teacher, resident medical officer, case checker)? Give summary @ -No Was smoking cessation discussed for >3mins.? @ -No Was critical care preformed (if so, how long)? @ -No Were there social determinants of health that impacted care today? How? (Homelessness, low income, unemployed, alcoholism, drug addiction, transportation, low edu. Level, literacy, decrease access to med. care, [facility], rehab)? @ -No Was there de-escalation of care discussed even if they declined (Discuss DNR or withdrawal of care, Hospice)? @ -No What co-morbidities impacted this encounter? (DM, HTN, Smoking, COPD, CAD, Cancer, CVA, ARF, Chemo, Hep., AIDS, mental health diagnosis, sleep apnea, morbid obesity)? Diabetes, hypertension, hyperlipidemia Was patient admitted / discharged? Hospital course, mention meds given and route, prescriptions, significant lab abnormalities, going to OR and other pertinent info. This is a 53-year-old female, well-known to this emergency department presenting for her chronic pain. Noted N/V on Saturday to garbage worker, with symptoms improving, pt is not currently having any episodes of emesis. Vital signs stable on arrival. She is resting comfortably in no acute distress. Appears at baseline. Physical exam is reassuring. Discussed with patient that she will receive ibuprofen, Tylenol, Zofran and melatonin -she is agreeable plan of care she was able to tolerate a diet Coke without any difficulty. Patient will be discharged home for outpatient follow-up. In my medical judgment there is currently no evidence of an immediate life- threatening or surgical condition. Discharge is therefore indicated at this time. [Discharge treatment instructions, follow up instructions, and appropriate emergency department return precautions were provided to the patient and/or medical decision maker. The patient was advised that a small risk still exists that a serious condition could develop and was therefore instructed to return to the ED for any changes in symptoms, persistent symptoms, inability to obtain proper follow-up or for any further concerns. Patient received verbal and written instructions for this condition. Undiagnosed new problem with uncertain prognosis? @ -No Drug Therapy requiring intensive monitoring for toxicity (Heparin, Nitro, Insulin, Cardizem)? @ -No Were any procedures done? @ -No Diagnosis/symptom? chronic pain Acute, or Chronic, or Acute on Chronic? chronic Uncomplicated (without systemic symptoms) or Complicated (systemic symptoms)? @uncomplicated Side effects of treatment? @ -No Exacerbation, Progression, or Severe Exacerbation? @ -No Poses a threat to life or bodily function? How? (Chest pain, [place], [place], pneumonia, PE, COPD, DKA, ARF, appy, cholecystitis, CVA, Diverticulitis, Homicidal, Suicidal, threat to staff... and all critical care pts) @ -No Disposition Clinical Impression: Chronic pain Disposition: HOME SELF-CARE Condition: Good Instructions (If sedation given, give patient instructions): Chronic Pain (ED) Additional Instructions: Your pain can be treated with ibuprofen and acetaminophen. You can take up to 400-600 mg of ibuprofen (Advil, Motrin) 3 times daily (every 8 hours) but can also use lower doses if this relieves your pain. Some people prefer naproxen (Aleve, Naprosyn) which can be taken in doses of 500 mg up to twice a day. Do not take both of these medicines together, and do not combine either with ketorolac (Toradol), meloxicam (Mobic), or indomethacin (Tivorbex). Some people can develop stomach discomfort with higher doses of either ibuprofen or naproxen, if this develops decrease your dose or stop taking it. If you need to take this dose daily for more than a week, please schedule an appointment for re-evaluation with your PCP. Please take these medications with food. You can take up to 1000 mg of acetaminophen (Tylenol) every 6 hours. Be careful as this is included in some medicines like Nyquil, [place], Percocet, Vicodin, STANBACK, Goody's Powders, and Excedrin. You can also use lidocaine patches for topical pain. You can purchase 4% patches over the counter at most drug stores. These can be helpful for pain from your muscles or bones. Every disease is a spectrum and a small chance still exists that a serious condition could develop, for this reason, please monitor yourself closely for new, changing or worsening symptoms, symptoms that do not begin to improve over the course of the next 48 hours, chest pain or difficulty in breathing, pain different from your typical chronic pain, fever, inability to tolerate/keep down fluids or your medications, inability to follow up with outpatient providers as instructed and should you experience these symptoms or should you have any further concerns for your wellbeing please return to the ED or call 911 immediately. Please maintain a clear liquid diet for the next 24 hours. Drink plenty of fluids and get plenty of rest. PLEASE call your primary care physician as soon as possible to arrange / discuss plan for followup appointment. Appointment in the next 1-3 days is strongly encouraged if possible. PLEASE let us know here before you leave if there is anything further we can do to be of any assistance. Take care and feel Better! Is patient prescribed a controlled substance at d/c from ED?: No Referrals: Ronel Manzano MD [Primary Care Provider] - 1-2 days
[2024-07-30] MEDS: MELATONIN 3 MG TABLET PO STA (04:06)
[2024-07-30] MEDS: ACETAMINOPHEN TAB 500 MG TAB PO STA (04:06)
[2024-07-30] MEDS: IBUPROFEN 400 MG TAB PO STA (04:06)
[2024-07-30] MEDS: ONDANSETRON ODT 4 MG TAB PO STA (04:07)
[2024-07-30 04:55] VITALS: BP 167/93; PULSE 63
[2024-07-30] MEDS ORDERED: MELATONIN 3 MG TABLET PO SCH (21:00)
== END 2024-07-30 04:55 | disposition home or self-care (01) ==
LOC: EC 03:36
DX: R11.2 Nausea with vomiting, unspecified (principal); G89.29 Other chronic pain; I10 Essential (primary) hypertension; E11.9 Type 2 diabetes mellitus without complications; E78.5 Hyperlipidemia, unspecified; F17.290 Nicotine dependence, other tobacco product, uncomplicated; Z88.8 Allergy status to other drugs, medicaments and biological substances
CPT/HCPCS: 99285

== ENCOUNTER 2024-07-31 13:17 | Emergency (ER) | payer MEDICARE ==
--- NOTE | 2024-07-31 13:52 | ED ---
General Adult HPI - General Chief complaint: Recheck/Abnormal Lab/Rx Stated complaint: Pain Time Seen by Provider: 07/31/24 13:34 Source: patient, RN notes reviewed, old records reviewed Mode of arrival: ambulatory Limitations: no limitations - History of Present Illness Initial comments: 53-year-old female with type 2 diabetes presenting with elevated blood sugar. Patient states she has been attempting to get into her primary care for medication review and follow-up regarding elevated blood sugars. She states she has been compliant with her medication. She states she did not have any excessive carbohydrates today. She denies shortness of breath. Denies fever. Denies abdominal pain nausea or vomiting. - Related Data Home Medications Medication Instructions Recorded Confirmed Atorvastatin [Lipitor] 80 mg PO HS 06/25/19 07/23/24 lisinopriL 40 mg PO DAILY 09/24/20 07/23/24 traZODone HCL 50 mg PO HS 01/11/21 07/23/24 Albuterol Inhaler [Ventolin Hfa 2 puff INHALATION RT-QID PRN 03/01/23 07/23/24 Inhaler] Insulin Glargine,Hum.rec.anlog 30 units SQ HS 07/30/23 07/23/24 [Lantus Solostar Pen] Ezetimibe [Zetia] 10 mg PO HS 02/17/24 07/23/24 Insulin Aspart (Niacinamide) 20 units SQ AC-TID 02/17/24 07/23/24 [Fiasp 100 Unit/ml Flextouch Pen] Nystatin 100,000 Unit/gm Powd 1 applic TOPICAL BID PRN 02/17/24 07/23/24 [Mycostatin Powder] Pantoprazole [Protonix] 40 mg PO DAILY 02/17/24 07/23/24 metFORMIN HCL 1,000 mg PO BID 06/13/24 07/23/24 Previous Rx's Medication Instructions Recorded amLODIPine [Norvasc] 10 mg PO DAILY #30 tab 03/11/23 hydrALAZINE HCL [Apresoline] 25 mg PO BID #60 tab 03/11/23 Ondansetron Odt [Zofran ODT] 4 mg PO Q8HR PRN #10 tab 03/29/24 Ibuprofen [Motrin] 600 mg PO Q8HR PRN 30 Days #30 tab 04/11/24 Famotidine [Pepcid] 20 mg PO DAILY #20 tablet 04/18/24 Ipratropium [place] 0.06%Nasal 2 spray EA NOSTRIL BID #15 ml 06/07/24 [Atrovent Nasal 0.06%] Acetaminophen-Codeine 300-30mg 1 tab PO Q4H PRN #10 tablet 06/30/24 [Tylenol w/codeine #3] Ibuprofen [Motrin] 600 mg PO Q8HR PRN #20 tab 07/27/24 Allergies Allergy/AdvReac Type Severity Reaction Status Date / Time levofloxacin [From Levaquin] Allergy Rash/Hives Verified 07/31/24 13:21 Review of Systems ROS Statement: Those systems with pertinent positive or pertinent negative responses have been documented in the HPI. ROS Other: All systems not noted in ROS Statement are negative. Past Medical History Past Medical History: Diabetes Mellitus, GERD/Reflux, Hyperlipidemia, Hypertension, Syncope Additional Past Medical History / Comment(s): Pt recently admitted to [facility] on 07/21/21 with uncontrolled IDDM and hyperkalemia. Other hx: Recurrent pancreatitis, hypertriglyceridemia, elevated lipase, IDDM type II, UTI, chronic low back pain, bulging discs, dental abscesses in past. History of Any Multi-Drug Resistant Organisms: MRSA Date of last positivie culture/infection: 03/01/23 MDRO Source:: Abdomen Past Surgical History: Tubal Ligation Additional Past Surgical History / Comment(s): Age 7 had VSD repair, tumor removal 03/2023 Past Anesthesia/Blood Transfusion Reactions: No Reported Reaction Past Psychological History: No Psychological Hx Reported Smoking Status: Former smoker, Second hand smoke exposure, Vaper Past Alcohol Use History: None Reported Past Drug Use History: None Reported - Past Family History Mother Family Medical History: No Reported History Additional Family Medical History / Comment(s): Mother was healthy. She is , pt cannot recall cause of . Father Family Medical History: Pneumonia Additional Family Medical History / Comment(s): Father at the age of 67yrs from pneumonia General Exam Limitations: no limitations General appearance: alert, in no apparent distress Head exam: Present: atraumatic, normocephalic Eye exam: Present: normal appearance, PERRL ENT exam: Present: mucous membranes moist Neck exam: Present: normal inspection. Absent: tenderness, meningismus Respiratory exam: Present: normal lung sounds bilaterally. Absent: respiratory distress, wheezes Cardiovascular Exam: Present: regular rate, normal rhythm GI/Abdominal exam: Present: soft. Absent: distended, tenderness Extremities exam: Present: normal inspection, normal capillary refill, other (Left foot: No erythema, no swelling, distal pulses intact). Absent: calf tenderness Neurological exam: Present: alert, oriented X3, CN II-XII intact. Absent: motor sensory deficit Psychiatric exam: Present: normal affect, normal mood Skin exam: Present: warm, dry, intact Course Vital Signs 07/31/24 13:19 Temperature 99.1 F Pulse Rate 70 Respiratory 18 Rate Blood Pressure 150/82 O2 Sat by Pulse 96 Oximetry Medical Decision Making - Medical Decision Making Was pt. sent in by a medical professional or institution (ROSALIE Flaherty, SET UP MACHINIST, urgent care, hospital, or senior care...) When possible be specific @ -No Did you speak to anyone other than the patient for history (EMS, parent, family, police, friend...)? What history was obtained from this source @ -No Did you review nursing and triage notes (agree or disagree)? Why? @ -I reviewed and agree with nursing and triage notes Were old charts reviewed (outside hosp., previous admission, EMS record, old EKG, old radiological studies, urgent care reports/EKG's, senior care records)? Report findings @ -No old charts were reviewed Differential Diagnosis : Hyperglycemia, DKA, dehydration EKG interpreted by me (3pts min.). @ -As above X-rays interpreted by me (1pt min.). @ -None done CT interpreted by me (1pt min.). @ -None done U/S interpreted by me (1pt. min.). @ -None done What testing was considered but not performed or refused? (CT, X-rays, U/S, labs)? Why? @ -None What meds were considered but not given or refused? Why? @ -None Did you discuss the management of the patient with other professionals (professionals i.e. ROSALIE Flaherty, SET UP MACHINIST, lab, RT, psych nurse, school social worker, assistant professor sculpture, teacher, highway patrol officer, case packer and sealer)? Give summary @ -No Was smoking cessation discussed for >3mins.? @ -No Was critical care preformed (if so, how long)? @ -No Were there social determinants of health that impacted care today? How? (Homelessness, low income, unemployed, alcoholism, drug addiction, transportation, low edu. Level, literacy, decrease access to med. care, assisted, rehab)? @ -No Was there de-escalation of care discussed even if they declined (Discuss DNR or withdrawal of care, Hospice)? DNR status @ -No What co-morbidities impacted this encounter? (DM, HTN, Smoking, COPD, CAD, Cancer, CVA, ARF, Chemo, Hep., AIDS, mental health diagnosis, sleep apnea, morbid obesity)? @Diabetes uncontrolled Was patient admitted / discharged? Hospital course, mention meds given and route, prescriptions, significant lab abnormalities, going to OR and other pertinent info. @ -53-year-old female well-known to this emergency department with elevated blood sugar. Patient's blood sugar is chronically elevated. Her blood sugar today is 500. She is given subcutaneous insulin. She is instructed to avoid sugary beverages and carbohydrates. She is instructed to drink plenty of water. She is instructed to follow-up closely with her primary care regarding her medications and insulin dosing. She is instructed to monitor her blood sugar closely at home. Undiagnosed new problem with uncertain prognosis? @ -No Drug Therapy requiring intensive monitoring for toxicity (Heparin, Nitro, Insulin, Cardizem)? @ -No Were any procedures done? @ -No Diagnosis/symptom? @Hyperglycemia Acute, or Chronic, or Acute on Chronic? @ -Chronic Uncomplicated (without systemic symptoms) or Complicated (systemic symptoms)? @ -Default Side effects of treatment? @ -No Exacerbation, Progression, or Severe Exacerbation? @ -No Poses a threat to life or bodily function? How? (Chest pain, [place], [place], pneumonia, PE, COPD, DKA, ARF, appy, cholecystitis, CVA, Diverticulitis, Homicidal, Suicidal, threat to staff... and all critical care pts) @ -No - Lab Data Lab Results 07/31/24 Range/Units 14:07 POC Glucose (mg/dL) 541 H* (70-110) mg/dL POC Glu Staff Analyst ID Gaudencio Andrews Disposition Clinical Impression: Uncontrolled type 2 diabetes mellitus Disposition: HOME SELF-CARE Condition: Fair Instructions (If sedation given, give patient instructions): Diabetic Hyperglycemia (ED) Is patient prescribed a controlled substance at d/c from ED?: No Referrals: Ronel Manzano MD [Primary Care Provider] - 1-2 days Time of Disposition: 14:15
[2024-07-31 14:08] LABS: Glucose,Whole Blood 541 mg/dL (70-110)
[2024-07-31] MEDS: INSULIN REGULAR 100 UNIT/ML VIAL (IM/SQ) SQ ONE (14:22)
[2024-07-31 14:28] VITALS: BP 165/92; PULSE 73; RESP 20; TEMP 98.7
== END 2024-07-31 14:28 | disposition home or self-care (01) ==
LOC: EC 13:17
DX: E11.65 Type 2 diabetes mellitus with hyperglycemia (principal); Z77.22 Contact with and (suspected) exposure to environmental tobacco smoke (acute) (chronic); Z88.1 Allergy status to other antibiotic agents
CPT/HCPCS: 36415; 99284

== ENCOUNTER 2024-08-03 20:04 | Emergency (ER) | payer MEDICARE ==
--- NOTE | 2024-08-03 20:34 | ED ---
General Adult HPI - General Chief complaint: Extremity Problem,Nontraumatic Stated complaint: Pain Time Seen by Provider: 08/03/24 20:23 Source: patient, EMS, RN notes reviewed Mode of arrival: EMS Limitations: no limitations - History of Present Illness Initial comments: 53-year-old female who is well-known to emergency department presenting via EMS for complaints of allover pain. Patient that she is having pain to the left foot most significantly. Denies trauma or injury. Most notable pain over the anterior foot. States that she has tried Tylenol at home in addition to heating and cooling packs with minimal relief. - Related Data Home Medications Medication Instructions Recorded Confirmed Atorvastatin [Lipitor] 80 mg PO HS 06/25/19 07/23/24 lisinopriL 40 mg PO DAILY 09/24/20 07/23/24 traZODone HCL 50 mg PO HS 01/11/21 07/23/24 Albuterol Inhaler [Ventolin Hfa 2 puff INHALATION RT-QID PRN 03/01/23 07/23/24 Inhaler] Insulin Glargine,Hum.rec.anlog 30 units SQ HS 07/30/23 07/23/24 [Lantus Solostar Pen] Ezetimibe [Zetia] 10 mg PO HS 02/17/24 07/23/24 Insulin Aspart (Niacinamide) 20 units SQ AC-TID 02/17/24 07/23/24 [Fiasp 100 Unit/ml Flextouch Pen] Nystatin 100,000 Unit/gm Powd 1 applic TOPICAL BID PRN 02/17/24 07/23/24 [Mycostatin Powder] Pantoprazole [Protonix] 40 mg PO DAILY 02/17/24 07/23/24 metFORMIN HCL 1,000 mg PO BID 06/13/24 07/23/24 Previous Rx's Medication Instructions Recorded amLODIPine [Norvasc] 10 mg PO DAILY #30 tab 03/11/23 hydrALAZINE HCL [Apresoline] 25 mg PO BID #60 tab 03/11/23 Ondansetron Odt [Zofran ODT] 4 mg PO Q8HR PRN #10 tab 03/29/24 Ibuprofen [Motrin] 600 mg PO Q8HR PRN 30 Days #30 tab 04/11/24 Famotidine [Pepcid] 20 mg PO DAILY #20 tablet 04/18/24 Ipratropium [place] 0.06%Nasal 2 spray EA NOSTRIL BID #15 ml 06/07/24 [Atrovent Nasal 0.06%] Acetaminophen-Codeine 300-30mg 1 tab PO Q4H PRN #10 tablet 06/30/24 [Tylenol w/codeine #3] Ibuprofen [Motrin] 600 mg PO Q8HR PRN #20 tab 07/27/24 Allergies Allergy/AdvReac Type Severity Reaction Status Date / Time levofloxacin [From Levaquin] Allergy Rash/Hives Verified 08/03/24 20:07 Review of Systems ROS Statement: Those systems with pertinent positive or pertinent negative responses have been documented in the HPI. ROS Other: All systems not noted in ROS Statement are negative. Past Medical History Past Medical History: Diabetes Mellitus, GERD/Reflux, Hyperlipidemia, Hypertension, Syncope Additional Past Medical History / Comment(s): Pt recently admitted to [facility] on 07/21/21 with uncontrolled IDDM and hyperkalemia. Other hx: Recurrent pancreatitis, hypertriglyceridemia, elevated lipase, IDDM type II, UTI, chronic low back pain, bulging discs, dental abscesses in past. History of Any Multi-Drug Resistant Organisms: MRSA Date of last positivie culture/infection: 03/01/23 MDRO Source:: Abdomen Past Surgical History: Tubal Ligation Additional Past Surgical History / Comment(s): Age 7 had VSD repair, tumor removal 03/2023 Past Anesthesia/Blood Transfusion Reactions: No Reported Reaction Past Psychological History: No Psychological Hx Reported Smoking Status: Former smoker, Second hand smoke exposure, Vaper Past Alcohol Use History: None Reported Past Drug Use History: None Reported - Past Family History Mother Family Medical History: No Reported History Additional Family Medical History / Comment(s): Mother was healthy. She is , pt cannot recall cause of . Father Family Medical History: Pneumonia Additional Family Medical History / Comment(s): Father at the age of 67yrs from pneumonia General Exam Limitations: no limitations General appearance: alert, in no apparent distress Respiratory exam: Present: normal lung sounds bilaterally. Absent: respiratory distress, wheezes, rales, rhonchi, stridor Cardiovascular Exam: Present: regular rate, normal rhythm, normal heart sounds. Absent: systolic murmur, diastolic murmur, rubs, gallop, clicks GI/Abdominal exam: Present: soft, normal bowel sounds. Absent: distended, tenderness, guarding, rebound, rigid Left Foot/Toe exam: Present: tenderness. Absent: swelling, ecchymosis, deformity, crepitus Gait: observed and normal Back exam: Present: normal inspection Course Vital Signs 08/03/24 08/03/24 20:08 21:36 Temperature 97.9 F 97.8 F Pulse Rate 78 72 Respiratory 18 20 Rate Blood Pressure 140/76 138/74 O2 Sat by Pulse 97 97 Oximetry Medical Decision Making - Medical Decision Making Was pt. sent in by a medical professional or institution (, PA, POWDER COAT PAINTER, urgent care, hospital, or usp...) When possible be specific @ -No Did you speak to anyone other than the patient for history (EMS, parent, family, police, friend...)? What history was obtained from this source @ -No Did you review nursing and triage notes (agree or disagree)? Why? @ -I reviewed and agree with nursing and triage notes Were old charts reviewed (outside hosp., previous admission, EMS record, old EKG, old radiological studies, urgent care reports/EKG's, usp records)? Report findings @ -No old charts were reviewed Differential Diagnosis (chest pain, altered mental status, abdominal pain women, abdominal pain men, vaginal bleeding, weakness, fever, dyspnea, syncope, headache, dizziness, GI bleed, back pain, seizure, CVA, palpatations, mental health, musculoskeletal)? @ -Differential Musculoskeletal Muscular strain, contusion, ligament sprain, fracture, arthritis, septic arthritis, bursitis, cellulitis, muscle spasm, nerve compression, DVT, arterial occlusion, herpes zoster, electrolyte abnormality, tumor.... This is not meant t o be in all inclusive list EKG interpreted by me (3pts min.). @ -None X-rays interpreted by me (1pt min.). @ -X-ray of the left foot no osseous abnormality CT interpreted by me (1pt min.). @ -None done U/S interpreted by me (1pt. min.). @ -None done What testing was considered but not performed or refused? (CT, X-rays, U/S, labs)? Why? @ -None What meds were considered but not given or refused? Why? @ -None Did you discuss the management of the patient with other professionals (professionals i.e. Dr., PA, POWDER COAT PAINTER, lab, RT, psych nurse, social service coordinator, blind installer, teacher, global safety officer, protective services case worker)? Give summary @ -No Was smoking cessation discussed for >3mins.? @ -No Was critical care preformed (if so, how long)? @ -No Were there social determinants of health that impacted care today? How? (Home lessness, low income, unemployed, alcoholism, drug addiction, transportation, low edu. Level, literacy, decrease access to med. care, group home, rehab)? @ -No Was there de-escalation of care discussed even if they declined (Discuss DNR or withdrawal of care, Hospice)? DNR status @ -No What co-morbidities impacted this encounter? (DM, HTN, Smoking, COPD, CAD, Cancer, CVA, ARF, Chemo, Hep., AIDS, mental health diagnosis, sleep apnea, morbid obesity)? @ -None Was patient admitted / discharged? Hospital course, mention meds given and route, prescriptions, significant lab abnormalities, going to OR and other pertinent info. @ -Discharge. 53-year-old female presenting for left foot pain. No obvious deformities on exam. X-rays negative. Recommend supportive treatment. Case discussed with Dr. Tobin Undiagnosed new problem with uncertain prognosis? @ -No Drug Therapy requiring intensive monitoring for toxicity (Heparin, Nitro, Insulin, Cardizem)? @ -No Were any procedures done? @ -No Diagnosis/symptom? @ -foot sprain Acute, or Chronic, or Acute on Chronic? @ -acute Uncomplicated (without systemic symptoms) or Complicated (systemic symptoms)? @ -uncomplicated Side effects of treatment? @ -No Exacerbation, Progression, or Severe Exacerbation? @ -No Poses a threat to life or bodily function? How? (Chest pain, [place], [place], pneumonia, PE, COPD, DKA, ARF, appy, cholecystitis, CVA, Diverticulitis, Homicidal, Suicidal, threat to staff... and all critical care pts) @ -No Disposition Clinical Impression: Foot sprain Disposition: HOME SELF-CARE Condition: Good Instructions (If sedation given, give patient instructions): Foot Sprain (ED) Additional Instructions: Please return to the Emergency Department if symptoms worsen or any other concerns. Is patient prescribed a controlled substance at d/c from ED?: No Referrals: Ronel Manzano MD [Primary Care Provider] - 1-2 days Time of Disposition: 21:16
[2024-08-03] MEDS: Acetaminophen-Codeine 300-30mg TAB PO STA (20:40)
--- NOTE | 2024-08-03 20:55 | XR ---
EXAMINATION TYPE: XR foot complete LT DATE OF EXAM: 08/03/2024 8:42 PM COMPARISON: 07/23/2024 CLINICAL INDICATION: Female, 53 years old with history of pain; PHH, pain TECHNIQUE: XR foot complete LT examined in the AP, oblique, and lateral projections. FINDINGS: No evidence of any acute osseous pathology. Calcaneal plantar spurring is present. IMPRESSION: 1. No evidence of acute fracture. 2. Multifocal degeneration changes throughout the joints of the foot. [facility], , 08/03/2024 8:53 PM
[2024-08-03 21:48] VITALS: BP 138/74; PULSE 72; RESP 20; TEMP 97.8
== END 2024-08-03 21:36 | disposition home or self-care (01) ==
LOC: EC 20:04
DX: S93.602A Unspecified sprain of left foot, initial encounter (principal); F17.290 Nicotine dependence, other tobacco product, uncomplicated; Z88.1 Allergy status to other antibiotic agents; X58.XXXA Exposure to other specified factors, initial encounter
CPT/HCPCS: 99283

== ENCOUNTER 2024-08-06 16:53 | Emergency (ER) | payer MEDICARE ==
[2024-08-06 17:15] VITALS: TEMP 97.6
[2024-08-06 19:01] LABS: Glucose,Whole Blood 322 mg/dL (70-110)
[2024-08-06 19:07] VITALS: BP 131/86; PULSE 79; RESP 20
[2024-08-06] MEDS: KETOROLAC 15 MG/ML 1 ML VIAL IM STA (19:12)
[2024-08-06] MEDS: INSULIN LISPRO (HumaLOG) 100 UNIT/ML 10 mL VL SQ ONE (19:15)
[2024-08-06] MEDS: ONDANSETRON ODT 4 MG TAB PO STA (19:15)
--- NOTE | 2024-08-06 19:20 | ED ---
General Adult HPI - General Chief complaint: Nausea/Vomiting/Diarrhea Stated complaint: Body Pain Time Seen by Provider: 08/06/24 17:20 Source: patient, RN notes reviewed, old records reviewed Mode of arrival: EMS Limitations: no limitations - History of Present Illness Initial comments: 53-year-old female who presents to the emergency department stating she is a little nauseous but has not vomited. Patient states she has pain all over but when you ask her specifically does she have any abdominal pain she denies it as well as chest pain difficulty breathing she denies as well. Patient denies any fever chills or cough. - Related Data Home Medications Medication Instructions Recorded Confirmed Atorvastatin [Lipitor] 80 mg PO HS 06/25/19 07/23/24 lisinopriL 40 mg PO DAILY 09/24/20 07/23/24 traZODone HCL 50 mg PO HS 01/11/21 07/23/24 Albuterol Inhaler [Ventolin Hfa 2 puff INHALATION RT-QID PRN 03/01/23 07/23/24 Inhaler] Insulin Glargine,Hum.rec.anlog 30 units SQ HS 07/30/23 07/23/24 [Lantus Solostar Pen] Ezetimibe [Zetia] 10 mg PO HS 02/17/24 07/23/24 Insulin Aspart (Niacinamide) 20 units SQ AC-TID 02/17/24 07/23/24 [Fiasp 100 Unit/ml Flextouch Pen] Nystatin 100,000 Unit/gm Powd 1 applic TOPICAL BID PRN 02/17/24 07/23/24 [Mycostatin Powder] Pantoprazole [Protonix] 40 mg PO DAILY 02/17/24 07/23/24 metFORMIN HCL 1,000 mg PO BID 06/13/24 07/23/24 Previous Rx's Medication Instructions Recorded amLODIPine [Norvasc] 10 mg PO DAILY #30 tab 03/11/23 hydrALAZINE HCL [Apresoline] 25 mg PO BID #60 tab 03/11/23 Ondansetron Odt [Zofran ODT] 4 mg PO Q8HR PRN #10 tab 03/29/24 Ibuprofen [Motrin] 600 mg PO Q8HR PRN 30 Days #30 tab 04/11/24 Famotidine [Pepcid] 20 mg PO DAILY #20 tablet 04/18/24 Ipratropium Avenel 0.06%Nasal 2 spray EA NOSTRIL BID #15 ml 06/07/24 [Atrovent Nasal 0.06%] Acetaminophen-Codeine 300-30mg 1 tab PO Q4H PRN #10 tablet 06/30/24 [Tylenol w/codeine #3] Ibuprofen [Motrin] 600 mg PO Q8HR PRN #20 tab 07/27/24 Allergies Allergy/AdvReac Type Severity Reaction Status Date / Time levofloxacin [From Levaquin] Allergy Rash/Hives Verified 08/06/24 17:15 Review of Systems ROS Statement: Those systems with pertinent positive or pertinent negative responses have been documented in the HPI. ROS Other: All systems not noted in ROS Statement are negative. Past Medical History Past Medical History: Diabetes Mellitus, GERD/Reflux, Hyperlipidemia, Hypertension, Syncope Additional Past Medical History / Comment(s): Pt recently admitted to [facility] on 07/21/21 with uncontrolled IDDM and hyperkalemia. Other hx: Recurrent pancreatitis, hypertriglyceridemia, elevated lipase, IDDM type II, UTI, chronic low back pain, bulging discs, dental abscesses in past. History of Any Multi-Drug Resistant Organisms: MRSA Date of last positivie culture/infection: 03/01/23 MDRO Source:: Abdomen Past Surgical History: Tubal Ligation Additional Past Surgical History / Comment(s): Age 7 had VSD repair, tumor removal 03/2023 Past Anesthesia/Blood Transfusion Reactions: No Reported Reaction Past Psychological History: No Psychological Hx Reported Smoking Status: Former smoker, Second hand smoke exposure, Vaper Past Alcohol Use History: None Reported Past Drug Use History: None Reported - Past Family History Mother Family Medical History: No Reported History Additional Family Medical History / Comment(s): Mother was healthy. She is , pt cannot recall cause of . Father Family Medical History: Pneumonia Additional Family Medical History / Comment(s): Father at the age of 67yrs from pneumonia General Exam - General Exam Comments Initial Comments: GENERAL: Patient is well-developed and well-nourished. Patient is nontoxic and well- hydrated and is in no acute distress. ENT: Neck is soft and supple. No significant lymphadenopathy is noted. Oropharynx is clear. Moist mucous membranes. Neck has full range of motion without eliciting any pain. EYES: The sclera were anicteric and conjunctiva were pink and moist. Extraocular movements were intact and pupils were equal round and reactive to light. Eyelids were unremarkable. PULMONARY: Unlabored respirations. Good breath sounds bilaterally. No audible rales rhonchi or wheezing was noted. CARDIOVASCULAR: There is a regular rate and rhythm without any murmurs gallops or rubs. ABDOMEN: Soft and nontender with normal bowel sounds. No palpable organomegaly was noted. There is no palpable pulsatile mass. SKIN: Skin is clear with no lesions or rashes and otherwise unremarkable. NEUROLOGIC: Patient is alert and oriented x3. Cranial nerves II through XII are grossly intact. Motor and sensory are also intact. Normal speech, volume and content. Symmetrical smile. MUSCULOSKELETAL: Normal extremities with adequate strength and full range of motion. LYMPHATICS: No significant lymphadenopathy is noted PSYCHIATRIC: Normal psychiatric evaluation. Limitations: no limitations Course Vital Signs 08/06/24 08/06/24 17:12 19:05 Temperature 97.6 F Pulse Rate 75 79 Respiratory 18 20 Rate Blood Pressure 126/86 131/86 O2 Sat by Pulse 98 98 Oximetry Medical Decision Making - Medical Decision Making Was pt. sent in by a medical professional or institution (, PA, DIGITAL CAMPAIGN SPECIALIST, urgent care, hospital, or fdc...) When possible be specific @ -No Did you speak to anyone other than the patient for history (EMS, parent, family, police, friend...)? What history was obtained from this source @ -No Did you review nursing and triage notes (agree or disagree)? Why? @ -I reviewed and agree with nursing and triage notes Were old charts reviewed (outside hosp., previous admission, EMS record, old EKG, old radiological studies, urgent care reports/EKG's, fdc records)? Report findings @ -No old charts were reviewed Differential Diagnosis? @ -Gastroenteritis, viral syndrome, marijuana abuse, acute nausea, chronic nausea this is not an all-inclusive list EKG interpreted by me (3pts min.). @ -As above X-rays interpreted by me (1pt min.). @ -None done CT interpreted by me (1pt min.). @ -None done U/S interpreted by me (1pt. min.). @ -None done What testing was considered but not performed or refused? (CT, X-rays, U/S, labs)? Why? @ -None What meds were considered but not given or refused? Why? @ -None Did you discuss the management of the patient with other professionals (professionals i.e. , PA, DIGITAL CAMPAIGN SPECIALIST, lab, RT, psych nurse, social worker assistant, crystal slicer, teacher, medical officer, correctional counselor/case manager)? Give summary @ -No Was smoking cessation discussed for >3mins.? @ -No Was critical care preformed (if so, how long)? @ -No Were there social determinants of health that impacted care today? How? (Homelessness, low income, unemployed, alcoholism, drug addiction, transportation, low edu. Level, literacy, decrease access to med. care, custodial, rehab)? @ -No Was there de-escalation of care discussed even if they declined (Discuss DNR or withdrawal of care, Hospice)? DNR status @ -No What co-morbidities impacted this encounter? (DM, HTN, Smoking, COPD, CAD, Cancer, CVA, ARF, Chemo, Hep., AIDS, mental health diagnosis, sleep apnea, morbid obesity)? @ -None Was patient admitted / discharged? Hospital course, mention meds given and route, prescriptions, significant lab abnormalities, going to OR and other pertinent info. @ -Patient was given a shot of Toradol for pain and Zofran for nausea on reevaluation she was feeling considerably better. Patient was also given 6 units of NovoLog for her sugar of over 300. Undiagnosed new problem with uncertain prognosis? @ -No Drug Therapy requiring intensive monitoring for toxicity (Heparin, Nitro, Insulin, Cardizem)? @ -No Were any procedures done? @ -No Diagnosis/symptom? @ -Nausea Acute, or Chronic, or Acute on Chronic? @ -Acute Uncomplicated (without systemic symptoms) or Complicated (systemic symptoms)? @ -Uncomplicated Side effects of treatment? @ -No Exacerbation, Progression, or Severe Exacerbation? @ -No Poses a threat to life or bodily function? How? (Chest pain, USA, SC, pneumonia, PE, COPD, DKA, ARF, appy, cholecystitis, CVA, Diverticulitis, Homicidal, Suicida l, threat to staff... and all critical care pts) @ -No Diagnosis/symptom? @ -Hyperglycemia Acute, or Chronic, or Acute on Chronic? @ -Acute Uncomplicated (without systemic symptoms) or Complicated (systemic symptoms)? @ -Uncomplicated Side effects of treatment? @ -None Exacerbation, Progression, or Severe Exacerbation] @ -No Poses a threat to life or bodily function? @ -No - Lab Data Lab Results 08/06/24 Range/Units 18:59 POC Glucose (mg/dL) 322 H (70-110) mg/dL POC Glu Clerical Adjudicator ID rhoda Mckeon Disposition Clinical Impression: Nausea, Hyperglycemia Disposition: HOME SELF-CARE Condition: Good Instructions (If sedation given, give patient instructions): Acute Nausea and Vomiting (ED) Is patient prescribed a controlled substance at d/c from ED?: No Referrals: Ronel Manzano MD [Primary Care Provider] - 1-2 days Time of Disposition: 19:20
== END 2024-08-06 19:24 | disposition home or self-care (01) ==
LOC: EC 16:53
DX: E11.65 Type 2 diabetes mellitus with hyperglycemia (principal); F17.290 Nicotine dependence, other tobacco product, uncomplicated; Z88.1 Allergy status to other antibiotic agents; Z79.4 Long term (current) use of insulin
CPT/HCPCS: 36415; 99284; 96372; J1885

== ENCOUNTER 2024-08-08 23:18 | Emergency (ER) | payer MEDICARE ==
[2024-08-08 23:22] VITALS: RESP 18; TEMP 98.2
--- NOTE | 2024-08-08 23:29 | ED ---
Recheck HPI - General Chief Complaint: Back Pain/Injury Stated Complaint: [place] Time Seen by Provider: 08/08/24 23:19 Source: patient, EMS, RN notes reviewed, old records reviewed Mode of arrival: EMS Limitations: no limitations - History of Present Illness Initial Comments: This is a 53-year-old female who here for medication refill for chronic pain. Difficulty seeing primary care patient has no new complaints she is here for chronic pain MD Complaint: medication refill request Returns Today for: persistent/worsening pain related to initial visit Symptoms Since Prior Visit: worsening pain Context: ran out of medication Treatments Prior to Arrival: Given Pain Meds on - Related Data Home Medications Medication Instructions Recorded Confirmed Atorvastatin [Lipitor] 80 mg PO HS 06/25/19 08/16/24 Previous Rx's Medication Instructions Recorded hydrALAZINE HCL [Apresoline] 25 mg PO BID #60 tab 03/11/23 Famotidine [Pepcid] 20 mg PO DAILY #20 tablet 04/18/24 Insulin Aspart (Niacinamide) 20 units SQ AC-TID 30 Days #1 each 08/18/24 [Fiasp 100 Unit/ml Flextouch Pen] Insulin Glargine,Hum.rec.anlog 35 units SQ HS 30 Days #1 each 08/18/24 [Lantus Solostar Pen] Allergies Allergy/AdvReac Type Severity Reaction Status Date / Time levofloxacin [From Levaquin] Allergy Rash/Hives Verified 08/16/24 18:35 Review of Systems ROS Statement: Those systems with pertinent positive or pertinent negative responses have been documented in the HPI. ROS Other: All systems not noted in ROS Statement are negative. Past Medical History Past Medical History: Diabetes Mellitus, GERD/Reflux, Hyperlipidemia, Hy pertension, Syncope Additional Past Medical History / Comment(s): Pt recently admitted to [facility] on 07/21/21 with uncontrolled IDDM and hyperkalemia. Other hx: Recurrent panc reatitis, hypertriglyceridemia, elevated lipase, IDDM type II, UTI, chronic low back pain, bulging discs, dental abscesses in past. History of Any Multi-Drug Resistant Organisms: MRSA Date of last positivie culture/infection: 03/01/23 MDRO Source:: Abdomen Past Surgical History: Tubal Ligation Additional Past Surgical History / Comment(s): Age 7 had VSD repair, tumor removal 03/2023 Past Anesthesia/Blood Transfusion Reactions: No Reported Reaction Past Psychological History: No Psychological Hx Reported Smoking Status: Former smoker, Second hand smoke exposure, Vaper Past Alcohol Use History: None Reported Past Drug Use History: None Reported - Past Family History Mother Family Medical History: No Reported History Additional Family Medical History / Comment(s): Mother was healthy. She is , pt cannot recall cause of . Father Family Medical History: Pneumonia Additional Family Medical History / Comment(s): Father at the age of 67yrs from pneumonia General Exam General appearance: alert, in no apparent distress Head exam: Present: atraumatic, normocephalic, normal inspection Eye exam: Present: normal appearance, PERRL, EOMI. Absent: scleral icterus, conjunctival injection, periorbital swelling ENT exam: Present: normal exam, mucous membranes moist Neck exam: Present: normal inspection. Absent: tenderness, meningismus, lymphadenopathy Respiratory exam: Present: normal lung sounds bilaterally. Absent: respiratory distress, wheezes, rales, rhonchi, stridor Cardiovascular Exam: Present: regular rate, normal rhythm, normal heart sounds. Absent: systolic murmur, diastolic murmur, rubs, gallop, clicks GI/Abdominal exam: Present: soft, normal bowel sounds. Absent: distended, tenderness, guarding, rebound, rigid Extremities exam: Present: normal inspection, full ROM, normal capillary refill. Absent: tenderness, pedal edema, joint swelling, calf tenderness Back exam: Present: normal inspection Neurological exam: Present: alert, oriented X3, CN II-XII intact Psychiatric exam: Present: normal affect, normal mood Skin exam: Present: warm, dry, intact, normal color. Absent: rash Course Vital Signs 08/08/24 08/09/24 23:20 00:05 Temperature 98.2 F Pulse Rate 77 78 Respiratory 18 18 Rate Blood Pressure 149/81 142/68 O2 Sat by Pulse 100 95 Oximetry - Reevaluation(s) Reevaluation #1: Medical records reviewed Reevaluation #2: Patient's symptoms improved medicine refilled prescribed Reevaluation #3: Patient informed of results questions answered Reevaluation #4: Was pt. sent in by a medical professional or institution (, PA, GANG PLANK WORKMAN, urgent care, hospital, or detention...) When possible be specific @ -no Did you speak to anyone other than the patient for history (EMS, parent, family, police, friend...)? What history was obtained from this source @ -no Did you review nursing and triage notes (agree or disagree)? Why? @ -agree Are old charts reviewed (outside hosp., previous admission, EMS record, old EKG, old radiological studies, urgent care reports/EKG's, detention records)? Report findings @ -yes Differential Diagnosis (chest pain, altered mental status, abdominal pain women, abdominal pain men, vaginal bleeding, weakness, fever, dyspnea, syncope, headache, dizziness, GI bleed, back pain, seizure, CVA, palpatations, mental health, musculoskeletal)? @ -prior EKG interpreted by me (3pts min.). @ -no X-rays interpreted by me (1pt min.). @ -no CT interpreted by me (1pt min.). @ -no U/S interpreted by me (1pt. min.). @ -no What testing was considered but not performed or refused? (CT, X-rays, U/S, labs)? Why? @ -none What meds were considered but not given or refused? Why? @ -none Did you discuss the management of the patient with other professionals (professionals i.e. , PA, GANG PLANK WORKMAN, lab, RT, psych nurse, social and political studies professor, community center worker, teacher, executive officer, piano case maker)? Give summary @ -no Was smoking cessation discussed for >3mins.? @ -no Was critical care preformed (if so, how long)? @ -no Were there social determinants of health that impacted care today? How? (Homelessness, low income, unemployed, alcoholism, drug addiction, transportation, low edu. Level, literacy, decrease access to med. care, half-way, rehab)? @ -none Was there de-escalation of care discussed even if they declined (Discuss DNR or withdrawal of care, Hospice)? DNR status @ -no What co-morbidities impacted this encounter? (DM, HTN, Smoking, COPD, CAD, Cancer, CVA, ARF, Chemo, Hep., AIDS, mental health diagnosis, sleep apnea, morbid obesity)? @ -none Was patient admitted / discharged? Hospital course, mention meds given and route, prescriptions, significant lab abnormalities, going to OR and other pertinent info. @ - 53 female to the ER for evaluation of chronic pain. Patient symptoms improved and patient can be discharged home Discharge Undiagnosed new problem with uncertain prognosis? @ -no Drug Therapy requiring intensive monitoring for toxicity (Heparin, Nitro, Insulin, Cardizem)? @ -no Were any procedures done? @ -no Diagnosis/symptom? @ -Chronic pain medication refill Acute, or Chronic, or Acute on Chronic? @ -Acute Uncomplicated (without systemic symptoms) or Complicated (systemic symptoms)? @ -Complicated Side effects of treatment? @ -no Exacerbation, Progression, or Severe Exacerbation? @ -exacerbation Poses a threat to life or bodily function? How? (Chest pain, USA, ID, pneumonia, PE, COPD, DKA, ARF, appy, cholecystitis, CVA, Diverticulitis, Homicidal, Suicidal, threat to staff... and all critical care pts) @ -no Medical Decision Making - Medical Decision Making 53 female to the ER for evaluation of chronic pain. Patient symptoms improved and patient can be discharged home Disposition Clinical Impression: Chronic pain Disposition: HOME SELF-CARE Condition: Fair Instructions (If sedation given, give patient instructions): Chronic Pain (ED) Is patient prescribed a controlled substance at d/c from ED?: No Referrals: Ronel Manzano MD [Primary Care Provider] - 1-2 days Time of Disposition: 23:30
[2024-08-09] MEDS: ACET/COD 300 MG/30 MG STARTER PACK 6 TAB BTL PO STA (00:01)
[2024-08-09] MEDS: HYDROmorphone 1 MG/ML 1 ML SYRINGE IM STA (00:01)
[2024-08-09 00:06] VITALS: BP 142/68; PULSE 78
== END 2024-08-09 00:05 | disposition home or self-care (01) ==
LOC: EC 23:18
DX: M54.9 Dorsalgia, unspecified (principal); G89.29 Other chronic pain; F17.290 Nicotine dependence, other tobacco product, uncomplicated; Z88.1 Allergy status to other antibiotic agents
CPT/HCPCS: 99283; 96372; J1171

== ENCOUNTER 2024-08-11 19:06 | Emergency (ER) | payer MEDICARE ==
[2024-08-11 19:14] VITALS: RESP 18
[2024-08-11 19:19] LABS: Glucose,Whole Blood >600 mg/dL (70-110)
--- NOTE | 2024-08-11 19:39 | ED ---
General Adult HPI - General Chief complaint: Recheck/Abnormal Lab/Rx Stated complaint: hyperglycemic Time Seen by Provider: 08/11/24 19:11 Source: patient Mode of arrival: EMS Limitations: no limitations - History of Present Illness Initial comments: Patient is a 53-year-old female past medical history of uncontrolled diabetes presenting today for diarrhea. Patient states that last night she woke up coughing and then had an episode of loose stool. Stool is light brown in color. Denies melena or hematochezia. Had an additional loose stool prior to arrival so came to the emergency department. Endorses cramping lower abdominal pain. Otherwise denies fevers, chills, chest pain, shortness of breath, focal numbness or weakness, nausea or vomiting. Endorses dysuria, denies vaginal discharge. States she has not eaten anything today and is unsure why her blood sugar is so high. - Related Data Home Medications Medication Instructions Recorded Confirmed Atorvastatin [Lipitor] 80 mg PO HS 06/25/19 07/23/24 lisinopriL 40 mg PO DAILY 09/24/20 07/23/24 traZODone HCL 50 mg PO HS 01/11/21 07/23/24 Albuterol Inhaler [Ventolin Hfa 2 puff INHALATION RT-QID PRN 03/01/23 07/23/24 Inhaler] Insulin Glargine,Hum.rec.anlog 30 units SQ HS 07/30/23 07/23/24 [Lantus Solostar Pen] Ezetimibe [Zetia] 10 mg PO HS 02/17/24 07/23/24 Insulin Aspart (Niacinamide) 20 units SQ AC-TID 02/17/24 07/23/24 [Fiasp 100 Unit/ml Flextouch Pen] Nystatin 100,000 Unit/gm Powd 1 applic TOPICAL BID PRN 02/17/24 07/23/24 [Mycostatin Powder] Pantoprazole [Protonix] 40 mg PO DAILY 02/17/24 07/23/24 metFORMIN HCL 1,000 mg PO BID 06/13/24 07/23/24 Previous Rx's Medication Instructions Recorded amLODIPine [Norvasc] 10 mg PO DAILY #30 tab 03/11/23 hydrALAZINE HCL [Apresoline] 25 mg PO BID #60 tab 03/11/23 Ondansetron Odt [Zofran ODT] 4 mg PO Q8HR PRN #10 tab 03/29/24 Ibuprofen [Motrin] 600 mg PO Q8HR PRN 30 Days #30 tab 04/11/24 Famotidine [Pepcid] 20 mg PO DAILY #20 tablet 04/18/24 Ipratropium [place] 0.06%Nasal 2 spray EA NOSTRIL BID #15 ml 06/07/24 [Atrovent Nasal 0.06%] Acetaminophen-Codeine 300-30mg 1 tab PO Q4H PRN #10 tablet 06/30/24 [Tylenol w/codeine #3] Ibuprofen [Motrin] 600 mg PO Q8HR PRN #20 tab 07/27/24 Allergies Allergy/AdvReac Type Severity Reaction Status Date / Time levofloxacin [From Levaquin] Allergy Rash/Hives Verified 08/11/24 19:13 Review of Systems ROS Statement: Those systems with pertinent positive or pertinent negative responses have been documented in the HPI. ROS Other: All systems not noted in ROS Statement are negative. Past Medical History Past Medical History: Diabetes Mellitus, GERD/Reflux, Hyperlipidemia, Hypertension, Syncope Additional Past Medical History / Comment(s): Pt recently admitted to [facility] on 07/21/21 with uncontrolled IDDM and hyperkalemia. Other hx: Recurrent pancreatitis, hypertriglyceridemia, elevated lipase, IDDM type II, UTI, chronic low back pain, bulging discs, dental abscesses in past. History of Any Multi-Drug Resistant Organisms: MRSA Date of last positivie culture/infection: 03/01/23 MDRO Source:: Abdomen Past Surgical History: Tubal Ligation Additional Past Surgical History / Comment(s): Age 7 had VSD repair, tumor removal 03/2023 Past Anesthesia/Blood Transfusion Reactions: No Reported Reaction Past Psychological History: No Psychological Hx Reported Smoking Status: Former smoker, Second hand smoke exposure, Vaper Past Alcohol Use History: None Reported Past Drug Use History: None Reported - Past Family History Mother Family Medical History: No Reported History Additional Family Medical History / Comment(s): Mother was healthy. She is , pt cannot recall cause of . Father Family Medical History: Pneumonia Additional Family Medical History / Comment(s): Father at the age of 67yrs from pneumonia General Exam - General Exam Comments Initial Comments: PE: CONSTITUTIONAL: No apparent distress, well appearing SKIN: Warm, dry, no jaundice, hives or petechiae EYES: Pupils are equally round, extraocular movements intact without nystagmus, clear conjunctiva, non-icteric sclera HENT: Normocephalic, atraumatic, moist mucus membranes, oropharynx clear without exudates NECK: , Full range of motion, normal appearance PULMONARY: Clear to auscultation without wheezes, rhonchi, or rales, normal excursion, no accessory muscle use and no stridor CARDIOVASCULAR: Regular rate, rhythm, normal S1 and S2. No appreciated murmurs, rubs or gallops. Strong radial pulses with intact distal perfusion. No lower extremity edema GASTROINTESTINAL: Soft, active bowel sounds throughout, non-tender, non- distended, no palpable masses, no rebound or guarding. No hepatosplenomegaly GENITOURINARY: MUSCULOSKELETAL: Extremities have no gross deformity, no edema, redness, or swelling. No calf swelling NEUROLOGIC:_a/o x 3, GCS 15, normal mentation and speech. Moves all extremities x 4 without motor or sensory deficit PSYCHIATRIC:_normal mood and affect, thought process is clear and linear Limitations: no limitations Course Vital Signs 08/11/24 08/11/24 19:11 21:58 Temperature 98.8 F 98.4 F Pulse Rate 77 58 L Respiratory 18 18 Rate Blood Pressure 162/64 165/90 O2 Sat by Pulse 97 98 Oximetry Medical Decision Making - Medical Decision Making Was pt. sent in by a medical professional or institution (, PA, BUTTON BREAKER OPERATOR, urgent care, hospital, or shelter...) When possible be specific @ -No Did you speak to anyone other than the patient for history (EMS, parent, family, police, friend...)? What history was obtained from this source @ -No Did you review nursing and triage notes (agree or disagree)? Why? @ -I reviewed nursing and triage notes Were old charts reviewed (outside hosp., previous admission, EMS record, old EKG, old radiological studies, urgent care reports/EKG's, shelter records)? Report findings @ -Medical records reviewed-patient has had multiple prior visits in the past for similar complaints Differential Diagnosis (chest pain, altered mental status, abdominal pain women, abdominal pain men, vaginal bleeding, weakness, fever, dyspnea, syncope, headache, dizziness, GI bleed, back pain, seizure, CVA, palpatations, mental health, musculoskeletal)? @Differential diagnosis cynthia broad over top considerations include gastroenteritis, IBS, colitis, diverticulitis, pancreatitis, cholecystitis this is not an all-inclusive list. Patient has a benign abdominal exam with stable vital signs at this point I do not feel imaging of the abdomen is indicated. EKG interpreted by me (3pts min.). @ -As above X-rays interpreted by me (1pt min.). @ -None done CT interpreted by me (1pt min.). @ -None done U/S interpreted by me (1pt. min.). @ -None done What testing was considered but not performed or refused? (CT, X-rays, U/S, labs)? Why? @ -None What meds were considered but not given or refused? Why? @ -None Did you discuss the management of the patient with other professionals (professionals i.e. , PA, BUTTON BREAKER OPERATOR, lab, RT, psych nurse, social work associate, make up arranger, teacher, correction officer head, correctional case records supervisor)? Give summary @ -No Was smoking cessation discussed for >3mins.? @ -No Was critical care preformed (if so, how long)? @ -No Were there social determinants of health that impacted care today? How? (Homelessness, low income, unemployed, alcoholism, drug addiction, transportation, low edu. Level, literacy, decrease access to med. care, halfway, rehab)? @ -No Was there de-escalation of care discussed even if they declined (Discuss DNR or withdrawal of care, Hospice)? @ -No What co-morbidities impacted this encounter? (DM, HTN, Smoking, COPD, CAD, Cance r, CVA, ARF, Chemo, Hep., AIDS, mental health diagnosis, sleep apnea, morbid obesity)? @Diabetes Was patient admitted / discharged? Hospital course, mention meds given and route, prescriptions, significant lab abnormalities, going to OR and other pertinent info. @Discharged-this is a 53-year-old female past medical history of uncontrolled diabetes well-known to this emergency department presenting today for diarrhea. Patient is hypertensive on arrival, otherwise vital signs within acceptable li mits. She is resting comfortably on my assessment. Abdominal exam is benign. She request diet Pepsi. Blood glucose greater than 600 on arrival. Basic labs will be obtained to ensure patient is not in DKA. She will be given Imodium and GI cocktail, IV fluids as well as Tylenol. Patient agreeable plan of care. Labs significant for hyperglycemia otherwise negative acetone, no acidosis, labs are not consistent with DKA or HHS. On recheck blood glucose 357 patient was able to tolerate p.o. intake without difficulty. Updated patient to findings and discussed with her the importance of adhering to diabetic diet and taking her insulin as prescribed. Patient will be discharged home for outpatient follow-up. She is agreeable with plan of care. In my medical judgment there is currently no evidence of an immediate life- threatening or surgical condition. Discharge is therefore indicated at this time. Discharge treatment instructions, follow up instructions, and appropriate emergency department return precautions were discussed with the patient and/or medical decision maker. Patient and/or medical decision maker expressed understanding of and agreed with the treatment plan, follow up instructions, and emergency department return precaution. All patient's and/or medical decision maker's questions were answered.] Undiagnosed new problem with uncertain prognosis? @ -No Drug Therapy requiring intensive monitoring for toxicity (Heparin, Nitro, Insulin, Cardizem)? @ -No Were any procedures done? @ -No Diagnosis/symptom? Uncontrolled hyperglycemia, diarrhea Acute, or Chronic, or Acute on Chronic? Acute on chronic Uncomplicated (without systemic symptoms) or Complicated (systemic symptoms)? @Uncomplicated Side effects of treatment? @ -No Exacerbation, Progression, or Severe Exacerbation? @ -No Poses a threat to life or bodily function? How? (Chest pain, USA, OR, pneumonia, PE, COPD, DKA, ARF, appy, cholecystitis, CVA, Diverticulitis, Homicidal, Suicidal, threat to staff... and all critical care pts) @ -No - Lab Data Result diagrams: 08/11/24 19:34 08/11/24 19:34 Lab Results 08/11/24 08/11/24 08/11/24 Range/Units 19:16 19:34 19:34 WBC 8.90 (4.50-10.00) 10*3/uL RBC 4.66 (4.10-5.20) 10*6/uL Hgb 12.6 (12.0-15.0) g/dL Hct 37.4 (37.2-46.3) % MCV 80.3 (80.0-97.0) fL MCH 27.0 (27.0-32.0) pg MCHC 33.7 (32.0-37.0) g/dL Plt Count 479 H (140-440) 10*3/uL MPV 9.1 L (9.5-12.2) fL Immature Gran % (Auto) 0.3 % Neutrophils % 57.7 % Lymphocytes % 33.1 % Monocytes % 6.6 % Eosinophils % 1.6 % Basophils % 0.7 % Immature Gran # 0.03 (0.00-0.04) 10*3/uL Neutrophils # 5.13 (1.80-7.70) 10*3/uL Lymphocytes # 2.95 (0.90-5.00) 10*3/uL Monocytes # 0.59 (0.20-1.00) 10*3/uL Eosinophils # 0.14 (0.04-0.35) 10*3/uL Basophils # 0.06 (0.00-0.10) 10*3/uL VBG pH (7.31-7.41) VBG pCO2 (37-51) mmHg VBG HCO3 (24-28) mmol/L Sodium (137-145) mmol/L Potassium (3.5-5.1) mmol/L Chloride (98-107) mmol/L Carbon Dioxide (22-30) mmol/L Anion Gap mmol/L BUN (7-17) mg/dL Creatinine (0.52-1.04) mg/dL Est GFR (CKD-EPI)AfAm (>60 ml/min/1.73 sqM) Est GFR (CKD-EPI)NonAf (>60 ml/min/1.73 sqM) Glucose (74-99) mg/dL POC Glucose (mg/dL) >600 H* (70-110) mg/dL POC Glu [employer] ID Jane Cope Calcium (8.4-10.2) mg/dL Total Bilirubin (0.2-1.3) mg/dL AST (14-36) U/L ALT (4-34) U/L Alkaline Phosphatase (38-126) U/L Total Protein (6.3-8.2) g/dL Albumin (3.5-5.0) g/dL Lipase (23-300) U/L Urine Color Colorless Urine Appearance Clear (Clear) Urine pH 5.5 (5.0-8.0) Ur Specific [place] 1.024 (1.001-1.035) Urine Protein Trace H (Negative) Urine Glucose (UA) 4+ H (Negative) Urine Ketones Negative (Negative) Urine Blood Negative (Negative) Urine Nitrite Negative (Negative) Urine Bilirubin Negative (Negative) Urine Urobilinogen <2.0 (<2.0) mg/dL Ur Leukocyte Esterase Negative (Negative) Acetone, Qual (Negative) 08/11/24 08/11/24 08/11/24 Range/Units 19:34 19:35 21:04 WBC (4.50-10.00) 10*3/uL RBC (4.10-5.20) 10*6/uL Hgb (12.0-15.0) g/dL Hct (37.2-46.3) % MCV (80.0-97.0) fL MCH (27.0-32.0) pg MCHC (32.0-37.0) g/dL Plt Count (140-440) 10*3/uL MPV (9.5-12.2) fL Immature Gran % (Auto) % Neutrophils % % Lymphocytes % % Monocytes % % Eosinophils % % Basophils % % Immature Gran # (0.00-0.04) 10*3/uL Neutrophils # (1.80-7.70) 10*3/uL Lymphocytes # (0.90-5.00) 10*3/uL Monocytes # (0.20-1.00) 10*3/uL Eosinophils # (0.04-0.35) 10*3/uL Basophils # (0.00-0.10) 10*3/uL VBG pH 7.39 (7.31-7.41) VBG pCO2 44 (37-51) mmHg VBG HCO3 27 (24-28) mmol/L Sodium 128 L (137-145) mmol/L Potassium 4.5 (3.5-5.1) mmol/L Chloride 91 L (98-107) mmol/L Carbon Dioxide 25 (22-30) mmol/L Anion Gap 12 mmol/L BUN 17 (7-17) mg/dL Creatinine 0.75 (0.52-1.04) mg/dL Est GFR (CKD-EPI)AfAm >90 (>60 ml/min/1.73 sqM) Est GFR (CKD-EPI)NonAf >90 (>60 ml/min/1.73 sqM) Glucose 621 H* (74-99) mg/dL POC Glucose (mg/dL) 357 H (70-110) mg/dL POC Glu [employer] ID Jane Cope Calcium 8.9 (8.4-10.2) mg/dL Total Bilirubin 0.4 (0.2-1.3) mg/dL AST 22 (14-36) U/L ALT 22 (4-34) U/L Alkaline Phosphatase 132 H (38-126) U/L Total Protein 6.4 (6.3-8.2) g/dL Albumin 3.6 (3.5-5.0) g/dL Lipase 257 (23-300) U/L Urine Color Urine Appearance (Clear) Urine pH (5.0-8.0) Ur Specific [place] (1.001-1.035) Urine Protein (Negative) Urine Glucose (UA) (Negative) Urine Ketones (Negative) Urine Blood (Negative) Urine Nitrite (Negative) Urine Bilirubin (Negative) Urine Urobilinogen (<2.0) mg/dL Ur Leukocyte Esterase (Negative) Acetone, Qual Negative (Negative) Disposition Clinical Impression: Uncontrolled diabetes mellitus with hyperglycemia Disposition: HOME SELF-CARE Condition: Stable Instructions (If sedation given, give patient instructions): Diabetic Hyperglycemia (ED), Diabetes and Exercise (ED) Additional Instructions: Every disease is a spectrum and a small chance still exists that a serious condition could develop, for this reason, please monitor yourself closely for new, changing or worsening symptoms, symptoms that persist beyond 48 hours, fever, black or bloody stools inability to tolerate/keep down fluids or your medications, inability to follow up with outpatient providers as instructed and should you experience these symptoms or should you have any further concerns for your wellbeing please return to the ED or call 911 immediately. Please maintain a clear liquid diet for the next 24 hours. Please ensure that you are diet is low in sugars and carbohydrates. Please drink plenty of water and sugar-free fluids. PLEASE call your primary care physician as soon as possible to arrange / discuss plan for followup appointment. Appointment in the next 1-3 days is strongly encouraged if possible. PLEASE let us know here before you leave if there is anything further we can do to be of any assistance. Take care and feel Better! Is patient prescribed a controlled substance at d/c from ED?: No Referrals: Ronel Manzano MD [Primary Care Provider] - 1-2 days
[2024-08-11 19:56] LABS: VBG PH 7.39 (7.31-7.41)
[2024-08-11 19:57] LABS: Basophils # (A) 0.06 10*3/uL (0.00-0.10); Basophils % (A) 0.7 %; Eosinophils # (A) 0.14 10*3/uL (0.04-0.35); Eosinophils % (A) 1.6 %; HCT 37.4 % (37.2-46.3); HGB 12.6 g/dL (12.0-15.0); Lymphocytes # (A) 2.95 10*3/uL (0.90-5.00); Lymphocytes % (A) 33.1 %; MCHC 33.7 g/dL (32.0-37.0); MCV 80.3 fL (80.0-97.0); Mean Platelet Volume 9.1 fL (9.5-12.2); Monocytes # (A) 0.59 10*3/uL (0.20-1.00); Monocytes % (A) 6.6 %; Neutrophils # (A) 5.13 10*3/uL (1.80-7.70); Neutrophils % (A) 57.7 %; Platelet Count 479 10*3/uL (140-440); RBC 4.66 10*6/uL (4.10-5.20); RDW 16.2 % (11.5-14.5)
[2024-08-11] MEDS: SODIUM CHLORIDE 0.9% 2,000 ML IV STA (19:57)
[2024-08-11] MEDS: FAMOTIDINE 20 MG TAB PO STA (19:57)
[2024-08-11] MEDS: LOPERAMIDE 2 MG CAP PO STA (19:57)
[2024-08-11] MEDS: MAG HYDROX/AL HYDROX/SIMETH 30 ML CUP PO STA (19:58)
[2024-08-11] MEDS: INSULIN REGULAR 100 UNIT/ML VIAL (IV) IV ONE (19:58)
[2024-08-11 19:59] LABS: Appearance,Urine Clear (Clear); Bilirubin,Urine Negative (Negative); Blood,Urine Negative (Negative); Color,Urine Colorless; Glucose,Urine (UA) 4+ (Negative); Ketones,Urine Negative (Negative); Leukocyte Esterase,Urine Negative (Negative); Nitrite,Urine Negative (Negative); PH, Urine 5.5 (5.0-8.0); Protein,Urine Trace (Negative); Specific Gravity,Urine 1.024 (1.001-1.035); Urobilinogen,Urine <2.0 mg/dL (<2.0)
[2024-08-11 20:17] LABS: ALT 22 U/L (4-34); AST 22 U/L (14-36); African American GFR (CKD) >90 (>60 ml/min/1.73 sqM); Albumin 3.6 g/dL (3.5-5.0); Alkaline Phosphatase 132 U/L (38-126); Anion Gap 12 mmol/L; Blood Urea Nitrogen 17 mg/dL (7-17); Calcium 8.9 mg/dL (8.4-10.2); Carbon Dioxide 25 mmol/L (22-30); Chloride 91 mmol/L (98-107); Lipase 257 U/L (23-300); Non-African American GFR(CKD) >90 (>60 ml/min/1.73 sqM); Potassium 4.5 mmol/L (3.5-5.1); Sodium 128 mmol/L (137-145); Total Bilirubin 0.4 mg/dL (0.2-1.3); Total Protein 6.4 g/dL (6.3-8.2)
[2024-08-11 20:35] LABS: Glucose 621 mg/dL (74-99)
[2024-08-11] MEDS: INSULIN NPL/INSULIN LISPRO 100 UNIT/ML 10 ML VL (Humalog 75/25) SQ ONE (20:37)
[2024-08-11] MEDS: ACETAMINOPHEN TAB 500 MG TAB PO STA (20:37)
[2024-08-11 21:06] LABS: Glucose,Whole Blood 357 mg/dL (70-110)
[2024-08-11 21:59] VITALS: BP 165/90; PULSE 58; TEMP 98.4
== END 2024-08-11 22:00 | disposition home or self-care (01) ==
LOC: SUPCPDRO 19:06 → EC 19:06
DX: E11.65 Type 2 diabetes mellitus with hyperglycemia (principal); R19.7 Diarrhea, unspecified; F17.290 Nicotine dependence, other tobacco product, uncomplicated; Z88.1 Allergy status to other antibiotic agents
CPT/HCPCS: 36415; 80053; 81003; 82009; 82803; 83690; 85025; 96360; 96361; 99285

== ENCOUNTER 2024-08-13 07:43 | Emergency (ER) | payer MEDICARE ==
--- NOTE | 2024-08-13 07:58 | ED ---
General Adult HPI - General Chief complaint: Upper Respiratory Infection Stated complaint: Cough Time Seen by Provider: 08/13/24 07:48 Source: patient, EMS, RN notes reviewed Mode of arrival: EMS Limitations: no limitations - History of Present Illness Initial comments: This is a 53-year-old female who presents to the emergency department for a chief complaint of "I don't feel good". Patient is well-known to this emergency department for multiple visits for the same complaint. States that she has not been sleeping well since last night, is nauseous, and has pain all over. She has not been checking her blood sugar. - Related Data Home Medications Medication Instructions Recorded Confirmed Atorvastatin [Lipitor] 80 mg PO HS 06/25/19 07/23/24 lisinopriL 40 mg PO DAILY 09/24/20 07/23/24 traZODone HCL 50 mg PO HS 01/11/21 07/23/24 Albuterol Inhaler [Ventolin Hfa 2 puff INHALATION RT-QID PRN 03/01/23 07/23/24 Inhaler] Insulin Glargine,Hum.rec.anlog 30 units SQ HS 07/30/23 07/23/24 [Lantus Solostar Pen] Ezetimibe [Zetia] 10 mg PO HS 02/17/24 07/23/24 Insulin Aspart (Niacinamide) 20 units SQ AC-TID 02/17/24 07/23/24 [Fiasp 100 Unit/ml Flextouch Pen] Nystatin 100,000 Unit/gm Powd 1 applic TOPICAL BID PRN 02/17/24 07/23/24 [Mycostatin Powder] Pantoprazole [Protonix] 40 mg PO DAILY 02/17/24 07/23/24 metFORMIN HCL 1,000 mg PO BID 06/13/24 07/23/24 Previous Rx's Medication Instructions Recorded amLODIPine [Norvasc] 10 mg PO DAILY #30 tab 03/11/23 hydrALAZINE HCL [Apresoline] 25 mg PO BID #60 tab 03/11/23 Ondansetron Odt [Zofran ODT] 4 mg PO Q8HR PRN #10 tab 03/29/24 Ibuprofen [Motrin] 600 mg PO Q8HR PRN 30 Days #30 tab 04/11/24 Famotidine [Pepcid] 20 mg PO DAILY #20 tablet 04/18/24 Ipratropium [place] 0.06%Nasal 2 spray EA NOSTRIL BID #15 ml 06/07/24 [Atrovent Nasal 0.06%] Acetaminophen-Codeine 300-30mg 1 tab PO Q4H PRN #10 tablet 06/30/24 [Tylenol w/codeine #3] Ibuprofen [Motrin] 600 mg PO Q8HR PRN #20 tab 07/27/24 Allergies Allergy/AdvReac Type Severity Reaction Status Date / Time levofloxacin [From Levaquin] Allergy Rash/Hives Verified 08/11/24 19:13 Review of Systems ROS Statement: Those systems with pertinent positive or pertinent negative responses have been documented in the HPI. ROS Other: All systems not noted in ROS Statement are negative. Past Medical History Past Medical History: Diabetes Mellitus, GERD/Reflux, Hyperlipidemia, Hypertension, Syncope Additional Past Medical History / Comment(s): Pt recently admitted to [facility] on 07/21/21 with uncontrolled IDDM and hyperkalemia. Other hx: Recurrent pancreatitis, hypertriglyceridemia, elevated lipase, IDDM type II, UTI, chronic low back pain, bulging discs, dental abscesses in past. History of Any Multi-Drug Resistant Organisms: MRSA Date of last positivie culture/infection: 03/01/23 MDRO Source:: Abdomen Past Surgical History: Tubal Ligation Additional Past Surgical History / Comment(s): Age 7 had VSD repair, tumor removal 03/2023 Past Anesthesia/Blood Transfusion Reactions: No Reported Reaction Past Psychological History: No Psychological Hx Reported Smoking Status: Former smoker, Second hand smoke exposure, Vaper Past Alcohol Use History: None Reported Past Drug Use History: None Reported - Past Family History Mother Family Medical History: No Reported History Additional Family Medical History / Comment(s): Mother was healthy. She is , pt cannot recall cause of . Father Family Medical History: Pneumonia Additional Family Medical History / Comment(s): Father at the age of 67yrs from pneumonia General Exam Limitations: no limitations General appearance: alert, in no apparent distress Head exam: Present: atraumatic, normocephalic, normal inspection Respiratory exam: Present: normal lung sounds bilaterally. Absent: respiratory distress, wheezes, rales, rhonchi, stridor Cardiovascular Exam: Present: regular rate, normal rhythm GI/Abdominal exam: Present: soft, normal bowel sounds. Absent: distended, tenderness, guarding, rebound, rigid Neurological exam: Present: alert, oriented X3, CN II-XII intact Psychiatric exam: Present: normal affect, normal mood Skin exam: Present: warm, dry, intact, normal color. Absent: rash Course Vital Signs 08/13/24 08/13/24 07:46 10:33 Temperature 98.4 F 98.2 F Pulse Rate 61 81 Respiratory 16 14 Rate Blood Pressure 159/79 145/81 O2 Sat by Pulse 95 100 Oximetry Medical Decision Making - Medical Decision Making This is a 53 year old female who presents to the emergency department for nausea and body pain. Was pt. sent in by a medical professional or institution? @ -No Did you speak to anyone other than the patient for history? @ -No Did you review nursing and triage notes? @ -Yes, and I agree, it is accurate with regards to the patient's symptoms. Were old charts reviewed? @ -No Differential Diagnosis? @ -Differential Nausea and Vomiting: Gastroenteritis, cholecystitis, appendicitis, pancreatitis, migraine, benign positional vertigo, food borne illness, pyelonephritis, irritable bowel syndrome, influenza, Covid, GERD, incarcerated hernia, intestinal obstruction, this is not meant to be an all-inclusive list. EKG interpreted by me (3pts min.)? @ -Not obtained X-rays interpreted by me (1pt min.)? @ -Not obtained CT interpreted by me (1pt min.)? @ -Not obtained U/S interpreted by me (1pt. min.)? @ -Not obtained What testing was considered but not performed? (CT, X-rays, U/S, labs)? Why? @ -None What meds were considered but not given? Why? @ -None Did you discuss the management of the patient with other professionals? @ -No Did you reconcile home meds? @ -No Was smoking cessation discussed for >3mins.? @ -I discussed smoking cessation for greater than 3 minutes. The risk of smoking were discussed with the patient including but not limited to risks of cancer, stroke, coronary artery disease and COPD. Also discussed with patient were multiple methods of quitting smoking. Lastly we discussed the financial cost of smoking. Was critical care preformed (if so, how long)? @ -No Were there social determinants of health that impacted care today? How? (Homelessness, low income, unemployed, alcoholism, drug addiction, transportation, low edu. Level, literacy, decrease access to med. care, halfway, rehab)? @ -No Was there de-escalation of care discussed even if they declined? (Discuss DNR or withdrawal of care, Hospice)? @ -No What co-morbidities impacted this encounter? (DM, HTN, Smoking, COPD, CAD, Cancer, CVA, Hep., AIDS, mental health diagnosis, sleep apnea, morbid obesity)? @ -DM, smoking Was patient admitted / discharged? @ -Discharged. Lab work demonstrates a blood sugar of 332, which is better than it typically is for the patient. Lab work otherwise unremarkable. Urinalysis negative for signs of infection. Symptoms were treated in the emergency department and 8 units of insulin administered for hyperglycemia. Again reiterated with the patient the need to follow-up with her primary care provider for ongoing medical care. Patient discharged home in stable condition. Case discussed with ED attending Dr. Mcgowan. Return precautions reviewed in depth, the patient is instructed to return to the emergency department with any new, worsening, or concerning symptoms. Patient verbalized understanding. Undiagnosed new problem with uncertain prognosis? @ -None Drug Therapy requiring intensive monitoring for toxicity (Heparin, Nitro, Insulin, Cardizem)? @ -None Were any procedures done? @ -None Diagnosis/symptom? @ -Nausea, feeling unwell Acute, or Chronic, or Acute on Chronic? @ -Acute Uncomplicated (without systemic symptoms) or Complicated (systemic symptoms)? @ -Uncomplicated Side effects of treatment? @ -None Exacerbation, Progression, or Severe Exacerbation] @ -Not applicable Poses a threat to life or bodily function? @ -No - Lab Data Result diagrams: 08/13/24 08:23 08/13/24 08:23 Lab Results 08/13/24 08/13/24 08/13/24 Range/Units 08:23 08:23 08:23 WBC 9.37 (4.50-10.00) 10*3/uL RBC 4.86 (4.10-5.20) 10*6/uL Hgb 13.3 (12.0-15.0) g/dL Hct 38.7 (37.2-46.3) % MCV 79.6 L (80.0-97.0) fL MCH 27.4 (27.0-32.0) pg MCHC 34.4 (32.0-37.0) g/dL Plt Count 395 (140-440) 10*3/uL MPV 9.9 (9.5-12.2) fL Immature Gran % (Auto) 0.3 % Neutrophils % 57.7 % Lymphocytes % 31.8 % Monocytes % 6.3 % Eosinophils % 3.2 % Basophils % 0.7 % Immature Gran # 0.03 (0.00-0.04) 10*3/uL Neutrophils # 5.40 (1.80-7.70) 10*3/uL Lymphocytes # 2.98 (0.90-5.00) 10*3/uL Monocytes # 0.59 (0.20-1.00) 10*3/uL Eosinophils # 0.30 (0.04-0.35) 10*3/uL Basophils # 0.07 (0.00-0.10) 10*3/uL Sodium 132 L (137-145) mmol/L Potassium 4.5 (3.5-5.1) mmol/L Chloride 99 (98-107) mmol/L Carbon Dioxide 23 (22-30) mmol/L Anion Gap 10 mmol/L BUN 11 (7-17) mg/dL Creatinine 0.54 (0.52-1.04) mg/dL Est GFR (CKD-EPI)AfAm >90 (>60 ml/min/1.73 sqM) Est GFR (CKD-EPI)NonAf >90 (>60 ml/min/1.73 sqM) Glucose 332 H (74-99) mg/dL POC Glucose (mg/dL) (70-110) mg/dL POC Glu Stone Circular Sawyer ID Calcium 9.3 (8.4-10.2) mg/dL Total Bilirubin 0.6 (0.2-1.3) mg/dL AST 28 (14-36) U/L ALT 22 (4-34) U/L Alkaline Phosphatase 134 H (38-126) U/L Total Protein 7.2 (6.3-8.2) g/dL Albumin 3.8 (3.5-5.0) g/dL Urine Color Colorless Urine Appearance Cloudy H (Clear) Urine pH 6.0 (5.0-8.0) Ur Specific [place] 1.015 (1.001-1.035) Urine Protein 2+ H (Negative) Urine Glucose (UA) 4+ H (Negative) Urine Ketones Negative (Negative) Urine Blood Negative (Negative) Urine Nitrite Negative (Negative) Urine Bilirubin Negative (Negative) Urine Urobilinogen <2.0 (<2.0) mg/dL Ur Leukocyte Esterase Small H (Negative) Urine RBC 2 (0-5) /hpf Urine WBC 3 (0-5) /hpf Ur Squamous Epith Cells 9 H (0-4) /hpf Urine Mucus Rare H (None) /hpf 08/13/24 Range/Units 10:26 WBC (4.50-10.00) 10*3/uL RBC (4.10-5.20) 10*6/uL Hgb (12.0-15.0) g/dL Hct (37.2-46.3) % MCV (80.0-97.0) fL MCH (27.0-32.0) pg MCHC (32.0-37.0) g/dL Plt Count (140-440) 10*3/uL MPV (9.5-12.2) fL Immature Gran % (Auto) % Neutrophils % % Lymphocytes % % Monocytes % % Eosinophils % % Basophils % % Immature Gran # (0.00-0.04) 10*3/uL Neutrophils # (1.80-7.70) 10*3/uL Lymphocytes # (0.90-5.00) 10*3/uL Monocytes # (0.20-1.00) 10*3/uL Eosinophils # (0.04-0.35) 10*3/uL Basophils # (0.00-0.10) 10*3/uL Sodium (137-145) mmol/L Potassium (3.5-5.1) mmol/L Chloride (98-107) mmol/L Carbon Dioxide (22-30) mmol/L Anion Gap mmol/L BUN (7-17) mg/dL Creatinine (0.52-1.04) mg/dL Est GFR (CKD-EPI)AfAm (>60 ml/min/1.73 sqM) Est GFR (CKD-EPI)NonAf (>60 ml/min/1.73 sqM) Glucose (74-99) mg/dL POC Glucose (mg/dL) 346 H (70-110) mg/dL POC Glu Stone Circular Sawyer ID [place] Calcium (8.4-10.2) mg/dL Total Bilirubin (0.2-1.3) mg/dL AST (14-36) U/L ALT (4-34) U/L Alkaline Phosphatase (38-126) U/L Total Protein (6.3-8.2) g/dL Albumin (3.5-5.0) g/dL Urine Color Urine Appearance (Clear) Urine pH (5.0-8.0) Ur Specific [place] (1.001-1.035) Urine Protein (Negative) Urine Glucose (UA) (Negative) Urine Ketones (Negative) Urine Blood (Negative) Urine Nitrite (Negative) Urine Bilirubin (Negative) Urine Urobilinogen (<2.0) mg/dL Ur Leukocyte Esterase (Negative) Urine RBC (0-5) /hpf Urine WBC (0-5) /hpf Ur Squamous Epith Cells (0-4) /hpf Urine Mucus (None) /hpf Disposition Clinical Impression: Feeling unwell, Hyperglycemia, Nicotine dependence Disposition: HOME SELF-CARE Additional Instructions: Return to the emergency department with any new, worsening, or concerning symptoms. Follow up with your primary care provider in 1-2 days. Is patient prescribed a controlled substance at d/c from ED?: No Referrals: Ronel Manzano MD [Primary Care Provider] - 1-2 days Time of Disposition: 09:44
[2024-08-13] MEDS: ACETAMINOPHEN TAB 500 MG TAB PO STA (08:18)
[2024-08-13] MEDS: IBUPROFEN 800 MG TAB PO STA (08:19)
[2024-08-13] MEDS: ONDANSETRON ODT 4 MG TAB PO STA (08:19)
[2024-08-13] MEDS: CYCLOBENZAPRINE 10 MG TAB PO STA (08:19)
[2024-08-13] MEDS: SODIUM CHLORIDE 0.9% 1,000 ML IV SCH (08:20)
[2024-08-13 08:56] LABS: Basophils # (A) 0.07 10*3/uL (0.00-0.10); Basophils % (A) 0.7 %; Eosinophils % (A) 3.2 %; HCT 38.7 % (37.2-46.3); HGB 13.3 g/dL (12.0-15.0); Lymphocytes # (A) 2.98 10*3/uL (0.90-5.00); Lymphocytes % (A) 31.8 %; MCH 27.4 pg (27.0-32.0); MCHC 34.4 g/dL (32.0-37.0); MCV 79.6 fL (80.0-97.0); Mean Platelet Volume 9.9 fL (9.5-12.2); Monocytes # (A) 0.59 10*3/uL (0.20-1.00); Monocytes % (A) 6.3 %; Neutrophils % (A) 57.7 %; Platelet Count 395 10*3/uL (140-440); RBC 4.86 10*6/uL (4.10-5.20); WBC 9.37 10*3/uL (4.50-10.00)
[2024-08-13 09:11] LABS: Appearance,Urine Cloudy (Clear); Bilirubin,Urine Negative (Negative); Blood,Urine Negative (Negative); Color,Urine Colorless; Glucose,Urine (UA) 4+ (Negative); Ketones,Urine Negative (Negative); Leukocyte Esterase,Urine Small (Negative); Mucus,Urine Rare /hpf; Nitrite,Urine Negative (Negative); Protein,Urine 2+ (Negative); RBC,Urine 2 /hpf (0-5); Specific Gravity,Urine 1.015 (1.001-1.035); Squamous Epithelial Cell,Urine 9 /hpf (0-4); Urobilinogen,Urine <2.0 mg/dL (<2.0); WBC,Urine 3 /hpf (0-5)
[2024-08-13 09:20] LABS: ALT 22 U/L (4-34); African American GFR (CKD) >90 (>60 ml/min/1.73 sqM); Albumin 3.8 g/dL (3.5-5.0); Anion Gap 10 mmol/L; Blood Urea Nitrogen 11 mg/dL (7-17); Calcium 9.3 mg/dL (8.4-10.2); Carbon Dioxide 23 mmol/L (22-30); Chloride 99 mmol/L (98-107); Glucose 332 mg/dL (74-99); Non-African American GFR(CKD) >90 (>60 ml/min/1.73 sqM); Sodium 132 mmol/L (137-145); Total Bilirubin 0.6 mg/dL (0.2-1.3); Total Protein 7.2 g/dL (6.3-8.2)
[2024-08-13 09:32] LABS: AST 28 U/L (14-36); Alkaline Phosphatase 134 U/L (38-126); Potassium 4.5 mmol/L (3.5-5.1)
[2024-08-13 10:27] LABS: Glucose,Whole Blood 346 mg/dL (70-110)
[2024-08-13] MEDS: ONDANSETRON 4 MG ODT STARTER PACK 2 TAB BTL PO STA (10:30)
[2024-08-13] MEDS: traMADol 50 MG STARTER PACK 3 TAB BTL PO STA (10:30)
[2024-08-13] MEDS: INSULIN REGULAR 100 UNIT/ML VIAL (IM/SQ) SQ ONE (10:31)
[2024-08-13 10:34] VITALS: BP 145/81; PULSE 81; RESP 14; TEMP 98.2
== END 2024-08-13 10:39 | disposition home or self-care (01) ==
LOC: EC 07:43
DX: E11.65 Type 2 diabetes mellitus with hyperglycemia (principal); F17.290 Nicotine dependence, other tobacco product, uncomplicated; Z88.1 Allergy status to other antibiotic agents; Z79.4 Long term (current) use of insulin
CPT/HCPCS: 36415; 80053; 85025; 81001; 99284; 99406; 96360; 96361; S0119

== ENCOUNTER 2024-08-16 15:09 | Observation (INO) | payer MEDICARE, OTHER ==
[2024-08-16 15:18] LABS: Glucose,Whole Blood >600 mg/dL (70-110)
--- NOTE | 2024-08-16 15:20 | ED ---
General Adult HPI - General Chief complaint: Recheck/Abnormal Lab/Rx Stated complaint: Hyperglycemia Time Seen by Provider: 08/16/24 15:10 Source: patient, EMS Mode of arrival: EMS Limitations: no limitations - History of Present Illness Initial comments: Patient presents to the ED by ambulance for evaluation. The patient states that she has had a productive cough and has "not felt well" since yesterday. Patient is complaining of having diffuse bodyaches as well. EMS reports that the patient's blood glucose reading was "high" when they checked today, and patient reports that she has not been taking her insulin for some time now. Patient denies fever or chills, headache, focal neuro deficit, chest pain or pressure, dyspnea, hemoptysis, palpitations, dizziness, abdominal pain, nausea/vomiting/diarrhea, bloody or melanotic stool, dysuria or urinary symptoms, or any other symptoms or complaints. - Related Data Home Medications Medication Instructions Recorded Confirmed Atorvastatin [Lipitor] 80 mg PO HS 06/25/19 07/23/24 lisinopriL 40 mg PO DAILY 09/24/20 07/23/24 traZODone HCL 50 mg PO HS 01/11/21 07/23/24 Albuterol Inhaler [Ventolin Hfa 2 puff INHALATION RT-QID PRN 03/01/23 07/23/24 Inhaler] Insulin Glargine,Hum.rec.anlog 30 units SQ HS 07/30/23 07/23/24 [Lantus Solostar Pen] Ezetimibe [Zetia] 10 mg PO HS 02/17/24 07/23/24 Insulin Aspart (Niacinamide) 20 units SQ AC-TID 02/17/24 07/23/24 [Fiasp 100 Unit/ml Flextouch Pen] Nystatin 100,000 Unit/gm Powd 1 applic TOPICAL BID PRN 02/17/24 07/23/24 [Mycostatin Powder] Pantoprazole [Protonix] 40 mg PO DAILY 02/17/24 07/23/24 metFORMIN HCL 1,000 mg PO BID 06/13/24 07/23/24 Previous Rx's Medication Instructions Recorded amLODIPine [Norvasc] 10 mg PO DAILY #30 tab 03/11/23 hydrALAZINE HCL [Apresoline] 25 mg PO BID #60 tab 03/11/23 Ondansetron Odt [Zofran ODT] 4 mg PO Q8HR PRN #10 tab 03/29/24 Ibuprofen [Motrin] 600 mg PO Q8HR PRN 30 Days #30 tab 04/11/24 Famotidine [Pepcid] 20 mg PO DAILY #20 tablet 04/18/24 Ipratropium [place] 0.06%Nasal 2 spray EA NOSTRIL BID #15 ml 06/07/24 [Atrovent Nasal 0.06%] Acetaminophen-Codeine 300-30mg 1 tab PO Q4H PRN #10 tablet 06/30/24 [Tylenol w/codeine #3] Ibuprofen [Motrin] 600 mg PO Q8HR PRN #20 tab 07/27/24 Allergies Allergy/AdvReac Type Severity Reaction Status Date / Time levofloxacin [From Levaquin] Allergy Rash/Hives Verified 08/16/24 15:12 Review of Systems ROS Statement: Those systems with pertinent positive or pertinent negative responses have been documented in the HPI. ROS Other: All systems not noted in ROS Statement are negative. Past Medical History Past Medical History: Diabetes Mellitus, GERD/Reflux, Hyperlipidemia, Hypertension, Syncope Additional Past Medical History / Comment(s): Pt recently admitted to [facility] on 07/21/21 with uncontrolled IDDM and hyperkalemia. Other hx: Recurrent pancreatitis, hypertriglyceridemia, elevated lipase, IDDM type II, UTI, chronic low back pain, bulging discs, dental abscesses in past. History of Any Multi-Drug Resistant Organisms: MRSA Date of last positivie culture/infection: 03/01/23 MDRO Source:: Abdomen Past Surgical History: Tubal Ligation Additional Past Surgical History / Comment(s): Age 7 had VSD repair, tumor removal 03/2023 Past Anesthesia/Blood Transfusion Reactions: No Reported Reaction Past Psychological History: No Psychological Hx Reported Smoking Status: Former smoker, Second hand smoke exposure, Vaper Past Alcohol Use History: None Reported Past Drug Use History: None Reported - Past Family History Mother Family Medical History: No Reported History Additional Family Medical History / Comment(s): Mother was healthy. She is , pt cannot recall cause of . Father Family Medical History: Pneumonia Additional Family Medical History / Comment(s): Father at the age of 67yrs from pneumonia General Exam Limitations: no limitations General appearance: alert, in no apparent distress Head exam: Present: atraumatic Eye exam: Present: normal appearance ENT exam: Present: normal oropharynx, mucous membranes moist Neck exam: Present: other (Trachea is in midline) Respiratory exam: Present: normal lung sounds bilaterally. Absent: respiratory distress, wheezes, rales, rhonchi, stridor Cardiovascular Exam: Present: regular rate, normal rhythm, normal heart sounds, other (Normal radial pulses bilaterally) GI/Abdominal exam: Present: soft. Absent: distended, tenderness, guarding Extremities exam: Present: other (Negative Homans' sign bilaterally). Absent: tenderness, pedal edema, calf tenderness Neurological exam: Present: alert, oriented X3 Skin exam: Present: warm, dry, normal color Course Vital Signs 08/16/24 15:10 Temperature 98.7 F Pulse Rate 74 Respiratory 18 Rate Blood Pressure 154/82 O2 Sat by Pulse 97 Oximetry - Reevaluation(s) Reevaluation #1: 08/16/24 17:21 Patient denies development of any new symptoms while in the ED. Patient is aware of her test results, she agrees with hospital admission at this time. 08/16/24 18:16 Case, H&P, test results and ED management thus far were discussed with Dr. Jolly. She accepts hospital admission. She has no further recommendations at this time. Medical Decision Making - Medical Decision Making Was pt. sent in by a medical professional or institution (, PA, HAZARDOUS MATERIAL TECHNICIAN, urgent care, hospital, or fpc...) When possible be specific @ -No Did you speak to anyone other than the patient for history (EMS, parent, family, police, friend...)? What history was obtained from this source @ -No Did you review nursing and triage notes (agree or disagree)? Why? @ -I reviewed and agree with nursing and triage notes Were old charts reviewed (outside hosp., previous admission, EMS record, old EKG, old radiological studies, urgent care reports/EKG's, fpc records)? Report findings @ -No old charts were reviewed Differential Diagnosis (chest pain, altered mental status, abdominal pain women, abdominal pain men, vaginal bleeding, weakness, fever, dyspnea, syncope, headache, dizziness, GI bleed, back pain, seizure, CVA, palpatations, mental health, musculoskeletal)? @ -Hyperglycemia, hyperosmolar state, DKA, electrolyte abnormality, dehydration, medication noncompliance, cough, upper respiratory infection, bronchitis, pneumonia, viral illness, COVID, influenza, this is not meant to be a complete list. EKG interpreted by me (3pts min.). @ -None done X-rays interpreted by me (1pt min.). @ -Chest x-ray was reviewed myself and shows no acute cardiopulmonary abnormality. I agree with the radiologist's interpretation as above. CT interpreted by me (1pt min.). @ -None done U/S interpreted by me (1pt. min.). @ -None done What testing was considered but not performed or refused? (CT, X-rays, U/S, labs)? Why? @ -None What meds were considered but not given or refused? Why? @ -None Did you discuss the management of the patient with other professionals (professionals i.e. , PA, HAZARDOUS MATERIAL TECHNICIAN, lab, RT, psych nurse, professor of social work, shank tapper, teacher, tax revenue officer, registered nurse hh case manager)? Give summary @ -As above. Was smoking cessation discussed for >3mins.? @ -No Was critical care preformed (if so, how long)? @ -No Were there social determinants of health that impacted care today? How? (Homeles sness, low income, unemployed, alcoholism, drug addiction, transportation, low edu. Level, literacy, decrease access to med. care, fpc, rehab)? @ -No Was there de-escalation of care discussed even if they declined (Discuss DNR or withdrawal of care, Hospice)? DNR status @ -No What co-morbidities impacted this encounter? (DM, HTN, Smoking, COPD, CAD, Cancer, CVA, ARF, Chemo, Hep., AIDS, mental health diagnosis, sleep apnea, morbid obesity)? @ -None Was patient admitted / discharged? Hospital course, mention meds given and route, prescriptions, significant lab abnormalities, going to OR and other pertinent info. @ -Patient reports having URI symptoms. Patient Cepheid swab and chest x-ray are negative. Patient's blood glucose is elevated at 770, but she is not ketotic or acidotic. Patient has been treated for hyperglycemia with IV fluids and subQ insulin in the ED. Patient reports to me that she is out of her insulin at home, and she has no way of getting any at this time. Given the patient's social situation and high blood glucose level, will admit the patient to the hospital for further management. Dr. Jolly has accepted hospital admission. Patient feels comfortable with this plan. Undiagnosed new problem with uncertain prognosis? @ -No Drug Therapy requiring intensive monitoring for toxicity (Heparin, Nitro, Insulin, Cardizem)? @ -No Were any procedures done? @ -No Diagnosis/symptom? @ -Hyperglycemia, upper respiratory infection Acute, or Chronic, or Acute on Chronic? @ -Acute Uncomplicated (without systemic symptoms) or Complicated (systemic symptoms)? @ -Default Side effects of treatment? @ -No Exacerbation, Progression, or Severe Exacerbation? @ -No Poses a threat to life or bodily function? How? (Chest pain, [place], PA, pneumonia, PE, COPD, DKA, ARF, appy, cholecystitis, CVA, Diverticulitis, Homicidal, Suicidal, threat to staff... and all critical care pts) @ -No - Lab Data Result diagrams: 08/16/24 15:34 08/16/24 15:34 Lab Results 08/16/24 08/16/24 08/16/24 Range/Units 15:15 15:34 15:34 WBC 7.10 (4.50-10.00) 10*3/uL RBC 4.81 (4.10-5.20) 10*6/uL Hgb 13.2 (12.0-15.0) g/dL Hct 39.4 (37.2-46.3) % MCV 81.9 (80.0-97.0) fL MCH 27.4 (27.0-32.0) pg MCHC 33.5 (32.0-37.0) g/dL Plt Count 434 (140-440) 10*3/uL MPV 9.2 L (9.5-12.2) fL Immature Gran % (Auto) 0.3 % Neutrophils % 64.6 % Lymphocytes % 27.2 % Monocytes % 5.1 % Eosinophils % 2.1 % Basophils % 0.7 % Immature Gran # 0.02 (0.00-0.04) 10*3/uL Neutrophils # 4.59 (1.80-7.70) 10*3/uL Lymphocytes # 1.93 (0.90-5.00) 10*3/uL Monocytes # 0.36 (0.20-1.00) 10*3/uL Eosinophils # 0.15 (0.04-0.35) 10*3/uL Basophils # 0.05 (0.00-0.10) 10*3/uL Sodium 128 L (137-145) mmol/L Potassium 4.6 (3.5-5.1) mmol/L Chloride 89 L (98-107) mmol/L Carbon Dioxide 23 (22-30) mmol/L Anion Gap 16 mmol/L BUN 17 (7-17) mg/dL Creatinine 0.83 (0.52-1.04) mg/dL Est GFR (CKD-EPI)AfAm >90 (>60 ml/min/1.73 sqM) Est GFR (CKD-EPI)NonAf 82 (>60 ml/min/1.73 sqM) Glucose 770 H* (74-99) mg/dL POC Glucose (mg/dL) >600 H* (70-110) mg/dL POC Glu Restrike Hammer Operator ID Gaudencio Juliana Calcium 8.9 (8.4-10.2) mg/dL Magnesium 1.4 L (1.6-2.3) mg/dL Total Bilirubin 0.4 (0.2-1.3) mg/dL AST 24 (14-36) U/L ALT 22 (4-34) U/L Alkaline Phosphatase 135 H (38-126) U/L Total Protein 6.5 (6.3-8.2) g/dL Albumin 3.6 (3.5-5.0) g/dL Acetone, Qual Negative (Negative) Influenza Type A (PCR) (Not Detectd) Influenza Type B (PCR) (Not Detectd) RSV (PCR) (Not Detectd) SARS-CoV-2 (PCR) (Not Detectd) 08/16/24 08/16/24 Range/Units 15:37 18:01 WBC (4.50-10.00) 10*3/uL RBC (4.10-5.20) 10*6/uL Hgb (12.0-15.0) g/dL Hct (37.2-46.3) % MCV (80.0-97.0) fL MCH (27.0-32.0) pg MCHC (32.0-37.0) g/dL Plt Count (140-440) 10*3/uL MPV (9.5-12.2) fL Immature Gran % (Auto) % Neutrophils % % Lymphocytes % % Monocytes % % Eosinophils % % Basophils % % Immature Gran # (0.00-0.04) 10*3/uL Neutrophils # (1.80-7.70) 10*3/uL Lymphocytes # (0.90-5.00) 10*3/uL Monocytes # (0.20-1.00) 10*3/uL Eosinophils # (0.04-0.35) 10*3/uL Basophils # (0.00-0.10) 10*3/uL Sodium (137-145) mmol/L Potassium (3.5-5.1) mmol/L Chloride (98-107) mmol/L Carbon Dioxide (22-30) mmol/L Anion Gap mmol/L BUN (7-17) mg/dL Creatinine (0.52-1.04) mg/dL Est GFR (CKD-EPI)AfAm (>60 ml/min/1.73 sqM) Est GFR (CKD-EPI)NonAf (>60 ml/min/1.73 sqM) Glucose (74-99) mg/dL POC Glucose (mg/dL) >600 H* (70-110) mg/dL POC Glu Restrike Hammer Operator ID Gaudencio Andrews Calcium (8.4-10.2) mg/dL Magnesium (1.6-2.3) mg/dL Total Bilirubin (0.2-1.3) mg/dL AST (14-36) U/L ALT (4-34) U/L Alkaline Phosphatase (38-126) U/L Total Protein (6.3-8.2) g/dL Albumin (3.5-5.0) g/dL Acetone, Qual (Negative) Influenza Type A (PCR) Not Detected (Not Detectd) Influenza Type B (PCR) Not Detected (Not Detectd) RSV (PCR) Not Detected (Not Detectd) SARS-CoV-2 (PCR) Not Detected (Not Detectd) - Radiology Data Chest x-ray: No acute cardiopulmonary disease/process. Disposition Clinical Impression: Hyperglycemia, Upper respiratory infection Disposition: ADMITTED IP TO THIS HOSP Condition: Stable Is patient prescribed a controlled substance at d/c from ED?: No Referrals: Ronel Manzano MD [Primary Care Provider] - 1-2 days Time of Disposition: 18:16
[2024-08-16 15:44] LABS: HCT 39.4 % (37.2-46.3); HGB 13.2 g/dL (12.0-15.0); MCH 27.4 pg (27.0-32.0); MCHC 33.5 g/dL (32.0-37.0); MCV 81.9 fL (80.0-97.0); RBC 4.81 10*6/uL (4.10-5.20); RDW 16.2 % (11.5-14.5)
[2024-08-16 15:45] LABS: Basophils # (A) 0.05 10*3/uL (0.00-0.10); Basophils % (A) 0.7 %; Eosinophils # (A) 0.15 10*3/uL (0.04-0.35); Eosinophils % (A) 2.1 %; Lymphocytes # (A) 1.93 10*3/uL (0.90-5.00); Lymphocytes % (A) 27.2 %; Mean Platelet Volume 9.2 fL (9.5-12.2); Monocytes # (A) 0.36 10*3/uL (0.20-1.00); Monocytes % (A) 5.1 %; Neutrophils # (A) 4.59 10*3/uL (1.80-7.70); Neutrophils % (A) 64.6 %; Platelet Count 434 10*3/uL (140-440)
--- NOTE | 2024-08-16 15:50 | XR ---
EXAMINATION TYPE: XR chest 2V DATE OF EXAM: 08/16/2024 3:38 PM COMPARISON: Chest radiographs from 07/10/2024. CLINICAL INDICATION: Female, 53 years old with history of cough; [facility] TECHNIQUE: XR chest 2V Frontal and lateral views of the chest. FINDINGS: Lungs/Pleura: There is no evidence of pleural effusion, focal consolidation, or pneumothorax. Pulmonary vascularity: Unremarkable. Heart/mediastinum: Cardiomediastinal silhouette is unremarkable. Musculoskeletal: No acute osseous pathology. Other findings: None IMPRESSION: No acute cardiopulmonary disease/process. [facility], , 08/16/2024 3:48 PM
[2024-08-16 15:59] LABS: ALT 22 U/L (4-34); AST 24 U/L (14-36); African American GFR (CKD) >90 (>60 ml/min/1.73 sqM); Albumin 3.6 g/dL (3.5-5.0); Alkaline Phosphatase 135 U/L (38-126); Anion Gap 16 mmol/L; Blood Urea Nitrogen 17 mg/dL (7-17); Calcium 8.9 mg/dL (8.4-10.2); Carbon Dioxide 23 mmol/L (22-30); Chloride 89 mmol/L (98-107); Magnesium 1.4 mg/dL (1.6-2.3); Non-African American GFR(CKD) 82 (>60 ml/min/1.73 sqM); Potassium 4.6 mmol/L (3.5-5.1); Sodium 128 mmol/L (137-145); Total Bilirubin 0.4 mg/dL (0.2-1.3); Total Protein 6.5 g/dL (6.3-8.2)
[2024-08-16] MEDS: SODIUM CHLORIDE 0.9% 1,000 ML IV ONE ×2 (16:16→16:57)
[2024-08-16 16:23] LABS: Influenza A Not Detected (Not Detectd); Influenza B Not Detected (Not Detectd); RSV Not Detected (Not Detectd)
[2024-08-16 16:29] LABS: Glucose 770 mg/dL (74-99)
[2024-08-16] MEDS: KETOROLAC 15 MG/ML 1 ML VIAL IVP STA (16:30)
[2024-08-16] MEDS: INSULIN REGULAR 100 UNIT/ML VIAL (IM/SQ) SQ STA (16:58)
[2024-08-16 18:01] LABS: Glucose,Whole Blood >600 mg/dL (70-110)
[2024-08-16] MEDS ORDERED: NALOXONE 0.4 MG/ML 1 ML VIAL IV PRN (18:18)
[2024-08-16 20:36] LABS: Glucose,Whole Blood 537 mg/dL (70-110)
[2024-08-16] MEDS: SODIUM CHLORIDE 0.9% 1,000 ML IV SCH (21:27)
[2024-08-16] MEDS: INSULIN GLARGINE (LANTUS) 100 UNIT/ML SYR SQ SCH (21:27)
[2024-08-16] MEDS: hydrALAZINE HCL 25 MG TAB PO SCH (22:25)
[2024-08-16] MEDS: ATORVASTATIN 80 MG TAB PO SCH (22:25)
[2024-08-16 22:30] LABS: Glucose,Whole Blood 417 mg/dL (70-110)
--- NOTE | 2024-08-16 22:48 | P.HPIM ---
History of Present Illness H&P Date: 08/16/24 Patient presents to the ED by ambulance for evaluation. The patient states that she has had a productive cough and has "not felt well" since yesterday. Patient is complaining of having diffuse bodyaches as well. EMS reports that the patient's blood glucose reading was "high" when they checked today, and patient reports that she has not been taking her insulin for some time now. Patient denies fever or chills, headache, focal neuro deficit, chest pain or pressure, dyspnea, hemoptysis, palpitations, dizziness, abdominal pain, nausea/vomiting/diarrhea, bloody or melanotic stool, dysuria or urinary symptoms, or any other symptoms or complaints. Blood sugar in the ED was found to be above 700; Patient reports having URI symptoms. Patient Cepheid swab and chest x-ray are negative. Patient's blood glucose is elevated at 770, but she is not ketotic or acidotic. Patient has been treated for hyperglycemia with IV fluids and subQ insulin in the ED. Patient reports to me that she is out of her insulin at home, and she has no way of getting any at this time. Given the patient's social situation and high blood glucose level, will admit the patient to the hospital for further management. Review of Systems REVIEW OF SYSTEMS: CONSTITUTIONAL: No fever, no malaise, no fatigue. HEENT: No recent visual problems or hearing problems. Denied any sore throat. CARDIOVASCULAR: No chest pain, orthopnea, PND, no palpitations, no syncope. PULMONARY: No shortness of breath, no cough, no hemoptysis. GASTROINTESTINAL: No diarrhea, no nausea, no vomiting, no abdominal pain. NEUROLOGICAL: No headaches, no weakness, no numbness. HEMATOLOGICAL: Denies any bleeding or petechiae. GENITOURINARY: Denies any burning micturition, frequency, or urgency. MUSCULOSKELETAL/RHEUMATOLOGICAL: Denies any joint pain, swelling, or any muscle pain. ENDOCRINE: Denies any polyuria or polydipsia. The rest of the 14-point review of systems is negative. Past Medical History Past Medical History: Diabetes Mellitus, GERD/Reflux, Hyperlipidemia, Hypertension, Syncope Additional Past Medical History / Comment(s): Pt recently admitted to [facility] on 07/21/21 with uncontrolled IDDM and hyperkalemia. Other hx: Recurrent pancreatitis, hypertriglyceridemia, elevated lipase, IDDM type II, UTI, chronic low back pain, bulging discs, dental abscesses in past. History of Any Multi-Drug Resistant Organisms: MRSA Date of last positivie culture/infection: 03/01/23 MDRO Source:: Abdomen Past Surgical History: Tubal Ligation Additional Past Surgical History / Comment(s): Age 7 had VSD repair, tumor removal 03/2023 Past Anesthesia/Blood Transfusion Reactions: No Reported Reaction Past Psychological History: No Psychological Hx Reported Smoking Status: Former smoker, Second hand smoke exposure, Vaper Past Alcohol Use History: None Reported Past Drug Use History: None Reported - Past Family History Mother Family Medical History: No Reported History Additional Family Medical History / Comment(s): Mother was healthy. She is , pt cannot recall cause of . Father Family Medical History: Pneumonia Additional Family Medical History / Comment(s): Father at the age of 67yrs from pneumonia Medications and Allergies Home Medications Medication Instructions Recorded Confirmed Type Atorvastatin [Lipitor] 80 mg PO HS 06/25/19 08/16/24 History hydrALAZINE HCL [Apresoline] 25 mg PO BID #60 tab 03/11/23 08/16/24 Rx Insulin Glargine,Hum.rec.anlog 30 units SQ HS 07/30/23 08/16/24 History [Lantus Solostar Pen] Insulin Aspart (Niacinamide) 20 units SQ AC-TID 02/17/24 08/16/24 History [Fiasp 100 Unit/ml Flextouch Pen] Famotidine [Pepcid] 20 mg PO DAILY #20 tablet 04/18/24 08/16/24 Rx Allergies Allergy/AdvReac Type Severity Reaction Status Date / Time levofloxacin [From Levaquin] Allergy Rash/Hives Verified 08/16/24 18:35 Physical Exam Vitals: Vital Signs Temp Pulse Resp BP Pulse Ox 08/16/24 15:10 98.7 F 74 18 154/82 97 Intake and Output 08/16/24 08/16/24 08/16/24 06:59 14:59 22:59 Other: Weight 81.647 kg General appearance: alert, in no apparent distress Head exam: Present: atraumatic Eye exam: Present: normal appearance ENT exam: Present: normal oropharynx, mucous membranes moist Neck exam: Present: other (Trachea is in midline) Respiratory exam: Present: normal lung sounds bilaterally. Absent: respiratory distress, wheezes, rales, rhonchi, stridor Cardiovascular Exam: Present: regular rate, normal rhythm, normal heart sounds, other (Normal radial pulses bilaterally) GI/Abdominal exam: Present: soft. Absent: distended, tenderness, guarding Extremities exam: Present: other (Negative Homans' sign bilaterally). Absent: tenderness, pedal edema, calf tenderness Neurological exam: Present: alert, oriented X3 Skin exam: Present: warm, dry, normal color Results CBC & Chem 7: 08/16/24 15:34 08/16/24 15:34 Labs: Abnormal Lab Results - Last 24 Hours (Table) 08/16/24 08/16/24 08/16/24 Range/Units 15:15 15:34 15:34 MPV 9.2 L (9.5-12.2) fL Sodium 128 L (137-145) mmol/L Chloride 89 L (98-107) mmol/L Glucose 770 H* (74-99) mg/dL POC Glucose (mg/dL) >600 H* (70-110) mg/dL Magnesium 1.4 L (1.6-2.3) mg/dL Alkaline Phosphatase 135 H (38-126) U/L 08/16/24 Range/Units 18:01 MPV (9.5-12.2) fL Sodium (137-145) mmol/L Chloride (98-107) mmol/L Glucose (74-99) mg/dL POC Glucose (mg/dL) >600 H* (70-110) mg/dL Magnesium (1.6-2.3) mg/dL Alkaline Phosphatase (38-126) U/L Assessment and Plan Assessment: 1. Hyperglycemia without acidosis -Patient received 10 units of IV insulin; we will monitor Accu-Cheks q. ACH S with insulin sliding scale - Patient takes insulin glargine 30 units subcu nightly we will resume home dose along with 20 units of aspart before every meal, monitor Accu-Cheks before every meal and at bedtime with insulin sliding scale - We will monitor renal function and electrolytes and supplement as needed 2. Hyponatremia likely associated with hyperglycemia; - Will monitor electrolytes; will recommend further evaluation if hyponatremia persists after correction of glucose 3. Hypertension; hydralazine 25 milligrams p.o. twice daily 4. Hyperlipidemia; continue with home dose of statin therapy 5. GERD; continue home dose of Pepcid 20 mg daily DVT prophylaxis; SCDs CODE STATUS; full code
[2024-08-16 23:23] LABS: Glucose,Whole Blood 382 mg/dL (70-110)
[2024-08-17] MEDS: IBUPROFEN 600 MG TAB PO PRN (01:40)
[2024-08-17] MEDS ORDERED: DEXTROSE 50% SYRINGE 50 ML IVP PRN ×2 (03:07)
[2024-08-17 06:12] LABS: Glucose,Whole Blood 449 mg/dL (70-110)
[2024-08-17 06:47] LABS: Basophils # (A) 0.05 10*3/uL (0.00-0.10); Basophils % (A) 0.6 %; Eosinophils # (A) 0.26 10*3/uL (0.04-0.35); Eosinophils % (A) 3.1 %; HCT 35.3 % (37.2-46.3); HGB 11.7 g/dL (12.0-15.0); Lymphocytes # (A) 3.06 10*3/uL (0.90-5.00); Lymphocytes % (A) 36.6 %; MCH 26.6 pg (27.0-32.0); MCHC 33.1 g/dL (32.0-37.0); MCV 80.2 fL (80.0-97.0); Mean Platelet Volume 9.2 fL (9.5-12.2); Monocytes # (A) 0.55 10*3/uL (0.20-1.00); Monocytes % (A) 6.6 %; Neutrophils # (A) 4.43 10*3/uL (1.80-7.70); Neutrophils % (A) 52.9 %; Platelet Count 344 10*3/uL (140-440); RDW 16.3 % (11.5-14.5); WBC 8.37 10*3/uL (4.50-10.00)
[2024-08-17] MEDS: INSULIN LISPRO (HumaLOG) 100 UNIT/ML 10 mL VL SQ SCH ×2 (06:48)
[2024-08-17 07:49] LABS: ALT 21 U/L (4-34); AST 24 U/L (14-36); African American GFR (CKD) >90 (>60 ml/min/1.73 sqM); Albumin 3.1 g/dL (3.5-5.0); Alkaline Phosphatase 122 U/L (38-126); Anion Gap 12 mmol/L; Blood Urea Nitrogen 18 mg/dL (7-17); Calcium 8.7 mg/dL (8.4-10.2); Carbon Dioxide 19 mmol/L (22-30); Chloride 104 mmol/L (98-107); Glucose 435 mg/dL (74-99); Non-African American GFR(CKD) >90 (>60 ml/min/1.73 sqM); Potassium 4.3 mmol/L (3.5-5.1); Sodium 135 mmol/L (137-145); Total Bilirubin 0.3 mg/dL (0.2-1.3); Total Protein 5.8 g/dL (6.3-8.2)
[2024-08-17] MEDS: FAMOTIDINE 20 MG TAB PO SCH (08:49)
[2024-08-17 11:38] LABS: Glucose,Whole Blood 259 mg/dL (70-110)
[2024-08-17] MEDS: HYDROcodone/APAP 5-325MG 1 EACH TAB PO PRN (13:18)
[2024-08-17 16:58] LABS: Glucose,Whole Blood 172 mg/dL (70-110)
[2024-08-17] MEDS: HEPARIN SODIUM,PORCINE 5,000 UNIT/ML 1 ML VIAL SQ SCH (17:00)
[2024-08-17] MEDS: SODIUM CHLORIDE 0.9% 1,000 ML IV SCH (17:00)
[2024-08-17 20:22] LABS: Glucose,Whole Blood 326 mg/dL (70-110)
[2024-08-18 06:03] LABS: Glucose,Whole Blood 278 mg/dL (70-110)
[2024-08-18 07:39] LABS: Basophils # (A) 0.05 10*3/uL (0.00-0.10); Basophils % (A) 0.6 %; Eosinophils # (A) 0.29 10*3/uL (0.04-0.35); Eosinophils % (A) 3.6 %; HCT 36.2 % (37.2-46.3); HGB 11.8 g/dL (12.0-15.0); Lymphocytes # (A) 3.42 10*3/uL (0.90-5.00); Lymphocytes % (A) 42.8 %; MCH 26.7 pg (27.0-32.0); MCHC 32.6 g/dL (32.0-37.0); MCV 81.9 fL (80.0-97.0); Monocytes # (A) 0.48 10*3/uL (0.20-1.00); Neutrophils # (A) 3.73 10*3/uL (1.80-7.70); Neutrophils % (A) 46.7 %; Platelet Count 407 10*3/uL (140-440); RBC 4.42 10*6/uL (4.10-5.20); RDW 16.3 % (11.5-14.5); WBC 7.99 10*3/uL (4.50-10.00)
[2024-08-18 07:57] LABS: African American GFR (CKD) >90 (>60 ml/min/1.73 sqM); Anion Gap 8 mmol/L; Blood Urea Nitrogen 19 mg/dL (7-17); Calcium 8.7 mg/dL (8.4-10.2); Carbon Dioxide 20 mmol/L (22-30); Chloride 105 mmol/L (98-107); Glucose 268 mg/dL (74-99); Non-African American GFR(CKD) >90 (>60 ml/min/1.73 sqM); Potassium 4.4 mmol/L (3.5-5.1); Sodium 133 mmol/L (137-145)
[2024-08-18 09:20] LABS: Glucose,Whole Blood 484 mg/dL (70-110)
[2024-08-18 11:36] LABS: Glucose,Whole Blood 300 mg/dL (70-110)
--- NOTE | 2024-08-18 14:28 | P.PN ---
Subjective Progress Note Date: 08/17/24 Patient presents to the ED by ambulance for evaluation. The patient states that she has had a productive cough and has "not felt well" since yesterday. Patient is complaining of having diffuse bodyaches as well. EMS reports that the patient's blood glucose reading was "high" when they checked today, and patient reports that she has not been taking her insulin for some time now. Patient denies fever or chills, headache, focal neuro deficit, chest pain or pressure, dyspnea, hemoptysis, palpitations, dizziness, abdominal pain, nausea/vomiting/diarrhea, bloody or melanotic stool, dysuria or urinary symptoms, or any other symptoms or complaints. Blood sugar in the ED was found to be above 700; Patient reports having URI symptoms. Patient Cepheid swab and chest x-ray are negative. Patient's blood glucose is elevated at 770, but she is not ketotic or acidotic. Patient has been treated for hyperglycemia with IV fluids and subQ insulin in the ED. Patient reports to me that she is out of her insulin at home, and she has no way of getting any at this time. Given the patient's social situation and high blood glucose level, will admit the patient to the hospital for further management. 08/17/2024 Patient is sitting on the side of the bed. Awake alert and oriented x 3. No complaints of chest pain or shortness of breath. Denied any dysuria or hematuria. Blood sugar is still elevated up to 400s. Current on insulin regimen along with sliding scale. Continue with diabetic diet. Current medications reviewed. Objective - Vital Signs Vital signs: Vital Signs Temp 98.6 F 08/17/24 16:47 Pulse 45 L 08/17/24 16:47 Resp 16 08/17/24 16:47 BP 175/80 08/17/24 16:47 Pulse Ox 97 08/17/24 16:47 FiO2 Intake & Output 08/16/24 08/17/24 08/17/24 18:59 06:59 18:59 Intake Total 400 536 Balance 400 536 Weight 81.647 kg 81.2 kg Intake: Oral 400 536 Other: Voiding Method Toilet # Voids 2 - Exam PHYSICAL EXAMINATION: Patient is lying in the bed comfortably, no acute distress, awake alert and oriented.. HEENT: Normocephalic. Neck is supple. Pupils reactive. Nostrils clear. Oral cavity is moist. Neck reveals no JVD, carotid bruits, or thyromegaly. CHEST EXAMINATION: Trachea is central. Symmetrical expansion. Lung chandler clear to auscultation and percussion. CARDIAC: Normal S1, S2 with no gallops. No murmurs ABDOMEN: Soft. Bowel sounds normal. No organomegaly. No abdominal bruits. Extremities: reveal no edema. No clubbing or cyanosis Neurologically awake, alert, oriented x3 with well-coordinated movements. No focal deficits noted Skin: No rash or skin lesions. Psychiatric: Coperative. Nonsuicidal Musculoskeletal: No joint swelling or deformity. Normal range of motion. - Labs CBC & Chem 7: 08/18/24 06:51 08/18/24 06:51 Labs: Abnormal Lab Results - Last 24 Hours (Table) 08/16/24 08/16/24 08/16/24 Range/Units 20:35 22:28 23:21 Hgb (12.0-15.0) g/dL Hct (37.2-46.3) % MCH (27.0-32.0) pg MPV (9.5-12.2) fL Sodium (137-145) mmol/L Carbon Dioxide (22-30) mmol/L BUN (7-17) mg/dL Glucose (74-99) mg/dL POC Glucose (mg/dL) 537 H* 417 H 382 H (70-110) mg/dL Total Protein (6.3-8.2) g/dL Albumin (3.5-5.0) g/dL 08/17/24 08/17/24 08/17/24 Range/Units 06:11 06:14 06:14 Hgb 11.7 L (12.0-15.0) g/dL Hct 35.3 L (37.2-46.3) % MCH 26.6 L (27.0-32.0) pg MPV 9.2 L (9.5-12.2) fL Sodium 135 L (137-145) mmol/L Carbon Dioxide 19 L (22-30) mmol/L BUN 18 H (7-17) mg/dL Glucose 435 H (74-99) mg/dL POC Glucose (mg/dL) 449 H (70-110) mg/dL Total Protein 5.8 L (6.3-8.2) g/dL Albumin 3.1 L (3.5-5.0) g/dL 08/17/24 08/17/24 Range/Units 11:37 16:56 Hgb (12.0-15.0) g/dL Hct (37.2-46.3) % MCH (27.0-32.0) pg MPV (9.5-12.2) fL Sodium (137-145) mmol/L Carbon Dioxide (22-30) mmol/L BUN (7-17) mg/dL Glucose (74-99) mg/dL POC Glucose (mg/dL) 259 H 172 H (70-110) mg/dL Total Protein (6.3-8.2) g/dL Albumin (3.5-5.0) g/dL Assessment and Plan Assessment: 1. Hyperglycemia without acidosis Diabetes type 2 insulin-dependent -Patient received 10 units of IV insulin; we will monitor Accu-Cheks q. ACH S with insulin sliding scale - Patient takes insulin glargine 30 units subcu nightly we will resume home dose along with 20 units of aspart before every meal, monitor Accu-Cheks before every meal and at bedtime with insulin sliding scale - We will monitor renal function and electrolytes and supplement as needed -Titrate insulin dose 2. Hyponatremia likely associated with hyperglycemia; - Will monitor electrolytes; will recommend further evaluation if hyponatremia persists after correction of glucose 3. Hypertension; hydralazine 25 milligrams p.o. twice daily 4. Hyperlipidemia; continue with home dose of statin therapy 5. GERD; continue home dose of Pepcid 20 mg daily DVT prophylaxis; SCDs CODE STATUS; full code
[2024-08-18 16:07] LABS: Glucose,Whole Blood 108 mg/dL (70-110)
[2024-08-18 20:21] LABS: Glucose,Whole Blood 263 mg/dL (70-110)
[2024-08-18] MEDS: INSULIN GLARGINE (LANTUS) 100 UNIT/ML SYR SQ SCH (20:33)
[2024-08-19 06:04] LABS: Glucose,Whole Blood 250 mg/dL (70-110)
[2024-08-19 08:46] VITALS: RESP 14
[2024-08-19 11:28] LABS: Glucose,Whole Blood 237 mg/dL (70-110)
[2024-08-19 12:33] VITALS: BP 141/69; PULSE 72; TEMP 100.2
--- NOTE | 2024-08-19 13:52 | XR ---
EXAMINATION TYPE: XR chest 1V portable DATE OF EXAM: 08/19/2024 1:36 PM COMPARISON: 08/16/2024 CLINICAL INDICATION: Female, 53 years old with history of Fever with cough, , FINDINGS: Heart borderline in size. Left lateral rib fracture deformities. No bert consolidation or pleural ef fusion. Median sternotomy wires. IMPRESSION: Borderline heart size. Old left-sided rib fracture deformities. No definite acute process. [facility], Workstation: [id number], 08/19/2024 1:50 PM
[2024-08-19 14:46] LABS: Appearance,Urine Clear (Clear); Bacteria,Urine Rare /hpf; Bilirubin,Urine Negative (Negative); Blood,Urine Negative (Negative); Color,Urine Colorless; Glucose,Urine (UA) Trace (Negative); Ketones,Urine Negative (Negative); Leukocyte Esterase,Urine Negative (Negative); Mucus,Urine Rare /hpf; Nitrite,Urine Negative (Negative); PH, Urine 5.5 (5.0-8.0); Protein,Urine 1+ (Negative); RBC,Urine <1 /hpf (0-5); Specific Gravity,Urine 1.017 (1.001-1.035); Squamous Epithelial Cell,Urine 4 /hpf (0-4); Urobilinogen,Urine <2.0 mg/dL (<2.0); WBC,Urine <1 /hpf (0-5)
== END 2024-08-19 16:05 | disposition home or self-care (01) ==
LOC: EC 15:09 → 3SCARD 18:18
PROVIDERS: ADMIT Internal Medicine; ATTEND Internal Medicine
DX: E11.65 Type 2 diabetes mellitus with hyperglycemia (principal); E87.1 Hypo-osmolality and hyponatremia; J06.9 Acute upper respiratory infection, unspecified; E78.1 Pure hyperglyceridemia; I10 Essential (primary) hypertension; K21.9 Gastro-esophageal reflux disease without esophagitis; F17.290 Nicotine dependence, other tobacco product, uncomplicated; Z79.4 Long term (current) use of insulin; Z79.84 Long term (current) use of oral hypoglycemic drugs; Z79.899 Other long term (current) drug therapy; Z88.1 Allergy status to other antibiotic agents
CPT/HCPCS: 96361 ×3; 96372 ×3; 96374; 99285; 36415; 80053 ×2; 80048; 82009; 83735; 85025 ×3; 81001; 83036; 87636; 71045; 71046; G0378 ×4; J1644 ×3; J1885

== ENCOUNTER 2024-08-21 06:02 | Emergency (ER) | payer MEDICARE, OTHER ==
[2024-08-21 06:19] VITALS: TEMP 98.5
--- NOTE | 2024-08-21 06:20 | ED ---
Recheck HPI - General Chief Complaint: Recheck/Abnormal Lab/Rx Stated Complaint: not feeling well Time Seen by Provider: 08/21/24 06:04 Source: patient, EMS, RN notes reviewed Mode of arrival: EMS Limitations: no limitations - History of Present Illness Initial Comments: 53-year-old female who is well-known to our emergency department presenting with complaints again of "not feeling well.' Patient was recently discharged from recent admission for hyperglycemia on 08/19/2024. Patient has multiple complaints states that she has been experiencing a dry cough in addition to nausea. Denies difficulty in breathing, fevers, chills, chest pain, urinary or bowel habit changes. - Related Data Home Medications Medication Instructions Recorded Confirmed Atorvastatin [Lipitor] 80 mg PO HS 06/25/19 08/16/24 Previous Rx's Medication Instructions Recorded hydrALAZINE HCL [Apresoline] 25 mg PO BID #60 tab 03/11/23 Famotidine [Pepcid] 20 mg PO DAILY #20 tablet 04/18/24 Insulin Aspart (Niacinamide) 20 units SQ AC-TID 30 Days #1 each 08/18/24 [Fiasp 100 Unit/ml Flextouch Pen] Insulin Glargine,Hum.rec.anlog 35 units SQ HS 30 Days #1 each 08/18/24 [Lantus Solostar Pen] Pen Needle, Diabetic [Ultra-Fine 1 needle SQ QID 30 Days #120 each 08/19/24 Pen Needle 12.7 mm (1/2") x 29G (BD)] Allergies Allergy/AdvReac Type Severity Reaction Status Date / Time levofloxacin [From Levaquin] Allergy Rash/Hives Verified 08/16/24 18:35 Review of Systems ROS Statement: Those systems with pertinent positive or pertinent negative responses have been documented in the HPI. ROS Other: All systems not noted in ROS Statement are negative. Past Medical History Past Medical History: Diabetes Mellitus, GERD/Reflux, Hyperlipidemia, Hyper tension, Syncope Additional Past Medical History / Comment(s): Pt recently admitted to [facility] on 07/21/21 with uncontrolled IDDM and hyperkalemia. Other hx: Recurrent pancrea titis, hypertriglyceridemia, elevated lipase, IDDM type II, UTI, chronic low back pain, bulging discs, dental abscesses in past. History of Any Multi-Drug Resistant Organisms: MRSA Date of last positivie culture/infection: 03/01/23 MDRO Source:: Abdomen Past Surgical History: Tubal Ligation Additional Past Surgical History / Comment(s): Age 7 had VSD repair, tumor removal 03/2023 Past Anesthesia/Blood Transfusion Reactions: No Reported Reaction Past Psychological History: No Psychological Hx Reported Smoking Status: Former smoker, Second hand smoke exposure, Vaper Past Alcohol Use History: None Reported Past Drug Use History: None Reported - Past Family History Mother Family Medical History: No Reported History Additional Family Medical History / Comment(s): Mother was healthy. She is , pt cannot recall cause of . Father Family Medical History: Pneumonia Additional Family Medical History / Comment(s): Father at the age of 67yrs from pneumonia General Exam Limitations: no limitations General appearance: alert, in no apparent distress ENT exam: Present: normal exam, mucous membranes moist Neck exam: Present: normal inspection. Absent: tenderness, meningismus, lymphadenopathy Respiratory exam: Present: normal lung sounds bilaterally. Absent: respiratory distress, wheezes, rales, rhonchi, stridor Cardiovascular Exam: Present: regular rate, normal rhythm, normal heart sounds. Absent: systolic murmur, diastolic murmur, rubs, gallop, clicks GI/Abdominal exam: Present: soft, normal bowel sounds. Absent: distended, tenderness, guarding, rebound, rigid Extremities exam: Present: normal inspection, full ROM, normal capillary refill. Absent: tenderness, pedal edema, joint swelling, calf tenderness Back exam: Present: normal inspection Skin exam: Present: warm, dry, intact, normal color. Absent: rash Course Vital Signs 08/21/24 08/21/24 06:14 06:54 Temperature 98.5 F Pulse Rate 53 L 72 Respiratory 17 18 Rate Blood Pressure 171/82 158/80 O2 Sat by Pulse 96 99 Oximetry Medical Decision Making - Medical Decision Making Was pt. sent in by a medical professional or institution (, PA, DOCK GRADER, urgent care, hospital, or correction...) When possible be specific @ -No Did you speak to anyone other than the patient for history (EMS, parent, family, police, friend...)? What history was obtained from this source @ -No Did you review nursing and triage notes (agree or disagree)? Why? @ -I reviewed and agree with nursing and triage notes Were old charts reviewed (outside hosp., previous admission, EMS record, old EKG, old radiological studies, urgent care reports/EKG's, correction records)? Report findings @ -Reviewed patient's previous admission where chest x-ray was completed with no acute cardiopulmonary process. Differential Diagnosis (chest pain, altered mental status, abdominal pain women, abdominal pain men, vaginal bleeding, weakness, fever, dyspnea, syncope, headache, dizziness, GI bleed, back pain, seizure, CVA, palpatations, mental health, musculoskeletal)? @ -COVID 19, RSV, influenza, pneumonia, acute bronchitis, URI, this list is not all inclusive EKG interpreted by me (3pts min.). @ -None X-rays interpreted by me (1pt min.). @ -None done CT interpreted by me (1pt min.). @ -None done U/S interpreted by me (1pt. min.). @ -None done What testing was considered but not performed or refused? (CT, X-rays, U/S, labs)? Why? @ -None What meds were considered but not given or refused? Why? @ -None Did you discuss the management of the patient with other professionals (professionals i.e. Dr., PA, DOCK GRADER, lab, RT, psych nurse, social media content specialist, mri supervisor, teacher, aviation tactical readiness officer, case managers)? Give summary @ -No Was smoking cessation discussed for >3mins.? @ -No Was critical care preformed (if so, how long)? @ -No Were there social determinants of health that impacted care today? How? (Homelessness, low income, unemployed, alcoholism, drug addiction, transportation, low edu. Level, literacy, decrease access to med. care, shelter, rehab)? @ -No Was there de-escalation of care discussed even if they declined (Discuss DNR or withdrawal of care, Hospice)? DNR status @ -No What co-morbidities impacted this encounter? (DM, HTN, Smoking, COPD, CAD, Cancer, CVA, ARF, Chemo, Hep., AIDS, mental health diagnosis, sleep apnea, morbid obesity)? @ -None Was patient admitted / discharged? Hospital course, mention meds given and route, prescriptions, significant lab abnormalities, going to OR and other pertinent info. @ -Discharge. 53-year-old female presenting via EMS with multiple complaints. Patient is well-known to the emergency department. Overall she is well- appearing in no signs of acute distress. Abdominal examination is unremarkable. Patient is provided with Toradol for pain relief in addition to Tessalon Perles for dry cough and Zofran for nausea. On reevaluation after medications patient states that she is feeling well. She is stable for discharge. Case discussed with Dr. Nugent Undiagnosed new problem with uncertain prognosis? @ -No Drug Therapy requiring intensive monitoring for toxicity (Heparin, Nitro, Insulin, Cardizem)? @ -No Were any procedures done? @ -No Diagnosis/symptom? @ -dry cough, nausea Acute, or Chronic, or Acute on Chronic? @ -acute Uncomplicated (without systemic symptoms) or Complicated (systemic symptoms)? @ -uncomplicated Side effects of treatment? @ -No Exacerbation, Progression, or Severe Exacerbation? @ -No Poses a threat to life or bodily function? How? (Chest pain, [place], [place], pneumonia, PE, COPD, DKA, ARF, appy, cholecystitis, CVA, Diverticulitis, Homicidal, Suicidal, threat to staff... and all critical care pts) @ -No Disposition Clinical Impression: Dry cough Disposition: HOME SELF-CARE Condition: Stable Instructions (If sedation given, give patient instructions): Cold Symptoms (ED) Additional Instructions: Please return to the Emergency Department if symptoms worsen or any other concerns. Is patient prescribed a controlled substance at d/c from ED?: No Referrals: Chayo Watkins MD [REFERRING] - 1-2 days Time of Disposition: 06:38
[2024-08-21] MEDS: BENZONATATE 100 MG CAP PO STA (06:47)
[2024-08-21] MEDS: ONDANSETRON ODT 4 MG TAB PO STA (06:47)
[2024-08-21] MEDS: KETOROLAC 15 MG/ML 1 ML VIAL IM STA (06:48)
[2024-08-21 06:55] VITALS: BP 158/80; PULSE 72; RESP 18
== END 2024-08-21 06:55 | disposition home or self-care (01) ==
LOC: EC 06:02
DX: R05.9 Cough, unspecified (principal); F17.290 Nicotine dependence, other tobacco product, uncomplicated; Z88.1 Allergy status to other antibiotic agents
CPT/HCPCS: 99284; 96372; J1885

== ENCOUNTER 2024-08-28 11:17 | Emergency (ER) | payer MEDICARE ==
[2024-08-28 11:24] VITALS: RESP 20
--- NOTE | 2024-08-28 11:54 | ED ---
General Adult HPI - General Source: patient, RN notes reviewed Mode of arrival: ambulatory Limitations: no limitations <Teo Mcgraw - Last Filed: 08/28/24 11:53> - General Source: patient, RN notes reviewed, old records reviewed Mode of arrival: ambulatory Limitations: no limitations <Servando Hernandez - Last Filed: 08/28/24 13:33> - General Chief complaint: Recheck/Abnormal Lab/Rx Stated complaint: pain Time Seen by Provider: 08/28/24 11:35 - History of Present Illness Initial comments: Quick note: This is a well-known 53-year-old female presenting for poor sleep last night. Patient states she was having difficulty sleeping last night due to nausea and "pain all over". (Teo Mcrgaw) Patient is a 53-year-old female present to the emergency department with comp laints of not sleeping well. Patient states she has chronic pain. Patient states pain is all over. Patient does feel a little bit nauseated. No new symptoms. (Servando Hernandez) - Related Data Home Medications Medication Instructions Recorded Confirmed Atorvastatin [Lipitor] 80 mg PO HS 06/25/19 08/16/24 Previous Rx's Medication Instructions Recorded hydrALAZINE HCL [Apresoline] 25 mg PO BID #60 tab 03/11/23 Famotidine [Pepcid] 20 mg PO DAILY #20 tablet 04/18/24 Insulin Aspart (Niacinamide) 20 units SQ AC-TID 30 Days #1 each 08/18/24 [Fiasp 100 Unit/ml Flextouch Pen] Insulin Glargine,Hum.rec.anlog 35 units SQ HS 30 Days #1 each 08/18/24 [Lantus Solostar Pen] Pen Needle, Diabetic [Ultra-Fine 1 needle SQ QID 30 Days #120 each 08/19/24 Pen Needle 12.7 mm (1/2") x 29G (BD)] Allergies Allergy/AdvReac Type Severity Reaction Status Date / Time levofloxacin [From Levaquin] Allergy Rash/Hives Verified 08/28/24 11:23 Review of Systems ROS Other: All systems not noted in ROS Statement are negative. <Teo Mcgraw - Last Filed: 08/28/24 11:53> ROS Other: All systems not noted in ROS Statement are negative. Constitutional: Denies: fever Eyes: Denies: eye pain ENT: Denies: ear pain Respiratory: Denies: dyspnea Cardiovascular: Denies: chest pain Gastrointestinal: Reports: nausea. Denies: abdominal pain, vomiting Musculoskeletal: Reports: as per HPI <Servando Hernandez - Last Filed: 08/28/24 13:33> ROS Statement: Those systems with pertinent positive or pertinent negative responses have been documented in the HPI. Past Medical History Past Medical History: Diabetes Mellitus, GERD/Reflux, Hyperlipidemia, Hypertension, Syncope Additional Past Medical History / Comment(s): Pt recently admitted to [facility] on 07/21/21 with uncontrolled IDDM and hyperkalemia. Other hx: Recurrent pancreatitis, hypertriglyceridemia, elevated lipase, IDDM type II, UTI, chronic low back pain, bulging discs, dental abscesses in past. History of Any Multi-Drug Resistant Organisms: MRSA Date of last positivie culture/infection: 03/01/23 MDRO Source:: Abdomen Past Surgical History: Tubal Ligation Additional Past Surgical History / Comment(s): Age 7 had VSD repair, tumor remov al 03/2023 Past Anesthesia/Blood Transfusion Reactions: No Reported Reaction Past Psychological History: No Psychological Hx Reported Smoking Status: Former smoker, Second hand smoke exposure, Vaper Past Alcohol Use History: None Reported Past Drug Use History: None Reported - Past Family History Mother Family Medical History: No Reported History Additional Family Medical History / Comment(s): Mother was healthy. She is , pt cannot recall cause of . Father Family Medical History: Pneumonia Additional Family Medical History / Comment(s): Father at the age of 67yrs from pneumonia <Teo Mcgraw - Last Filed: 08/28/24 11:53> General Exam Limitations: no limitations <Teo Mcgraw - Last Filed: 08/28/24 11:53> Limitations: no limitations General appearance: alert, in no apparent distress Head exam: Present: normocephalic Eye exam: Present: normal appearance ENT exam: Present: normal oropharynx Neck exam: Present: normal inspection Respiratory exam: Present: normal lung sounds bilaterally. Absent: respiratory distress, wheezes, rales Cardiovascular Exam: Present: regular rate, normal rhythm GI/Abdominal exam: Present: soft, normal bowel sounds. Absent: distended, tenderness, guarding, rebound, rigid, pulsatile mass Extremities exam: Present: normal inspection. Absent: calf tenderness Neurological exam: Present: alert Psychiatric exam: Present: normal affect, normal mood Skin exam: Present: normal color <Servando Hernandez - Last Filed: 08/28/24 13:33> - General Exam Comments Initial Comments: Visual Physical Exam Vital signs reviewed General: Well-appearing, nontoxic, no acute distress. Head: Normocephalic, atraumatic Eyes: PERRLA, EOMI ENT: Airway patent Chest: Nonlabored breathing Skin: No visual rash, normal skin tone Neuro: Alert and oriented 3 Musculoskeletal: No gross abnormalities (Teo Mcgraw) Course Vital Signs 08/28/24 11:21 Temperature 97.9 F Pulse Rate 76 Respiratory 20 Rate Blood Pressure 130/81 O2 Sat by Pulse 99 Oximetry Medical Decision Making <Teo Mcgraw - Last Filed: 08/28/24 11:53> <Servando Hernandez - Last Filed: 08/28/24 13:33> - Medical Decision Making I completed the quick note portion of this chart signed DOTTY Peraza (Teo Mcgraw) Was pt. sent in by a medical professional or institution ([facility], [facility], urgent care, hospital, or care home...) When possible be specific @ -No Did you speak to anyone other than the patient for history (EMS, parent, family, police, friend...)? What history was obtained from this source @ -No Did you review nursing and triage notes (agree or disagree)? Why? @ -I reviewed and agree with nursing and triage notes Were old charts reviewed (outside hosp., previous admission, EMS record, old EKG, old radiological studies, urgent care reports/EKG's, care home records)? Report findings @ -No old charts were reviewed Differential Diagnosis (chest pain, altered mental status, abdominal pain women, abdominal pain men, vaginal bleeding, weakness, fever, dyspnea, syncope, headache, dizziness, GI bleed, back pain, seizure, CVA, palpatations, mental health, musculoskeletal)? @ -Differential Musculoskeletal Muscular strain, contusion, ligament sprain, fracture, arthritis, septic arthritis, bursitis, cellulitis, muscle spasm, nerve compression, DVT, arterial occlusion, herpes zoster, electrolyte abnormality, tumor.... This is not meant to be in all inclusive list EKG interpreted by me (3pts min.). @ -As above X-rays interpreted by me (1pt min.). @ -None done CT interpreted by me (1pt min.). @ -None done U/S interpreted by me (1pt. min.). @ -None done What testing was considered but not performed or refused? (CT, X-rays, U/S, labs)? Why? @ -None What meds were considered but not given or refused? Why? @ -None Did you discuss the management of the patient with other professionals (professionals i.e. , PA, [facility], lab, RT, psych nurse, psychiatric social worker supervisor, processing spec, teacher, fire management officer, case work aide)? Give summary @ -No Was smoking cessation discussed for >3mins.? @ -No Was critical care preformed (if so, how long)? @ -No Were there social determinants of health that impacted care today? How? (Homelessness, low income, unemployed, alcoholism, drug addiction, transportation, low edu. Level, literacy, decrease access to med. care, intermediate, rehab)? @ -No Was there de-escalation of care discussed even if they declined (Discuss DNR or withdrawal of care, Hospice)? DNR status @ -No What co-morbidities impacted this encounter? (DM, HTN, Smoking, COPD, CAD, Cancer, CVA, ARF, Chemo, Hep., AIDS, mental health diagnosis, sleep apnea, morbid obesity)? @ -Chronic pain Was patient admitted / discharged? Hospital course, mention meds given and route, prescriptions, significant lab abnormalities, going to OR and other pertinent info. @ -Patient was well-known to emergency department for chronic pain. Patient returns with chronic pain. Patient also has some nausea. No vomiting. No abdominal pain or tenderness on exam. No fever. Patient will be discharged following Zofran ODT. Patient is updated on plan and need for follow-up. Undiagnosed new problem with uncertain prognosis? @ -No Drug Therapy requiring intensive monitoring for toxicity (Heparin, Nitro, Insulin, Cardizem)? @ -No Were any procedures done? @ -No Diagnosis/symptom? @ -Nausea, pain Acute, or Chronic, or Acute on Chronic? @ -Acute on chronic, chronic Uncomplicated (without systemic symptoms) or Complicated (systemic symptoms)? @ -Default Side effects of treatment? @ -No Exacerbation, Progression, or Severe Exacerbation? @ -No Poses a threat to life or bodily function? How? (Chest pain, [place], [place], pneumonia, PE, COPD, DKA, ARF, appy, cholecystitis, CVA, Diverticulitis, Homicidal, Suicidal, threat to staff... and all critical care pts) @ -No (Servando Hernandez) Disposition <Teo Mcgraw - Last Filed: 08/28/24 11:53> Is patient prescribed a controlled substance at d/c from ED?: No Time of Disposition: 13:32 <Servando Hernandez - Last Filed: 08/28/24 13:33> Clinical Impression: Chronic pain Disposition: HOME SELF-CARE Condition: Stable Instructions (If sedation given, give patient instructions): Chronic Pain (ED) Additional Instructions: Please do follow-up with your primary care physician in the next couple days for recheck. Have your primary care physician direct treatment for your chronic pain. Return for new or worsening symptoms, fever, difficulty breathing or other concerns. Referrals: Ronel Manzano MD [Primary Care Provider] - 1-2 days
[2024-08-28] MEDS: ONDANSETRON ODT 4 MG TAB PO STA (14:06)
[2024-08-28 14:07] VITALS: BP 137/90; PULSE 80; TEMP 98.5
== END 2024-08-28 14:12 | disposition home or self-care (01) ==
LOC: EC 11:17
DX: G89.29 Other chronic pain (principal); R11.0 Nausea; F17.290 Nicotine dependence, other tobacco product, uncomplicated; Z88.1 Allergy status to other antibiotic agents
CPT/HCPCS: 99283

== ENCOUNTER 2024-09-13 15:10 | Inpatient (IN) | payer MEDICARE, OTHER ==
--- NOTE | 2024-09-13 15:16 | ED ---
General Adult HPI - General Chief complaint: Nausea/Vomiting/Diarrhea Stated complaint: Nausea, loss of appetite Time Seen by Provider: 09/13/24 15:11 Source: patient, EMS Mode of arrival: EMS Limitations: no limitations - History of Present Illness Initial comments: Patient presents to the ED by ambulance for evaluation. Patient states that she has felt nauseated and has not had much of an appetite for the past couple of days or so. Patient states that she has also felt "achy all over". EMS reports that the patient's blood glucose was in the 500s. Patient states that she has been taking her insulin and other medications as prescribed. Patient denies fever or chills, headache, focal numbness/weakness/neuro deficit, visual changes, chest pain or pressure, dyspnea, cough or cold symptoms, palpitations, dizziness, abdominal pain, vomiting or diarrhea, constipation, bloody or melanotic stool, dysuria or urinary symptoms, or any other symptoms or complaints. Patient is a frequent ED patient, and she is well-known to the ED staff. - Related Data Home Medications Medication Instructions Recorded Confirmed Atorvastatin [Lipitor] 80 mg PO HS 06/25/19 09/13/24 Insulin Aspart [NovoLOG Flexpen] 20 units SQ AC-TID 09/13/24 09/13/24 Insulin Glargine,Hum.rec.anlog 35 unit SQ HS 09/13/24 09/13/24 [Basaglar Kwikpen U-100] Previous Rx's Medication Instructions Recorded hydrALAZINE HCL [Apresoline] 25 mg PO BID #60 tab 03/11/23 Famotidine [Pepcid] 20 mg PO DAILY #20 tablet 04/18/24 Allergies Allergy/AdvReac Type Severity Reaction Status Date / Time levofloxacin [From Levaquin] Allergy Rash/Hives Verified 09/13/24 17:11 Review of Systems ROS Statement: Those systems with pertinent positive or pertinent negative responses have been documented in the HPI. ROS Other: All systems not noted in ROS Statement are negative. Past Medical History Past Medical History: Diabetes Mellitus, GERD/Reflux, Hyperlipidemia, Hyp ertension, Syncope Additional Past Medical History / Comment(s): Pt recently admitted to [facility] on 07/21/21 with uncontrolled IDDM and hyperkalemia. Other hx: Recurrent pancr eatitis, hypertriglyceridemia, elevated lipase, IDDM type II, UTI, chronic low back pain, bulging discs, dental abscesses in past. History of Any Multi-Drug Resistant Organisms: MRSA Date of last positivie culture/infection: 03/01/23 MDRO Source:: Abdomen Past Surgical History: Tubal Ligation Additional Past Surgical History / Comment(s): Age 7 had VSD repair, tumor removal 03/2023 Past Anesthesia/Blood Transfusion Reactions: No Reported Reaction Past Psychological History: No Psychological Hx Reported Smoking Status: Former smoker, Second hand smoke exposure, Vaper Past Alcohol Use History: None Reported Past Drug Use History: None Reported - Past Family History Mother Family Medical History: No Reported History Additional Family Medical History / Comment(s): Mother was healthy. She is , pt cannot recall cause of . Father Family Medical History: Pneumonia Additional Family Medical History / Comment(s): Father at the age of 67yrs from pneumonia General Exam Limitations: no limitations General appearance: alert, in no apparent distress Head exam: Present: atraumatic Eye exam: Present: normal appearance ENT exam: Present: mucous membranes moist Respiratory exam: Present: normal lung sounds bilaterally. Absent: respiratory distress, wheezes, rales, rhonchi, stridor Cardiovascular Exam: Present: regular rate, normal rhythm, normal heart sounds, other (Normal radial pulses bilaterally) GI/Abdominal exam: Present: soft. Absent: distended, tenderness, guarding Extremities exam: Absent: tenderness, pedal edema, calf tenderness Back exam: Absent: CVA tenderness (R), CVA tenderness (L) Neurological exam: Present: alert, oriented X3, motor sensory deficit Skin exam: Present: warm, dry, normal color Course Vital Signs 09/13/24 09/13/24 15:13 16:57 Temperature 99.3 F Pulse Rate 80 78 Respiratory 18 18 Rate Blood Pressure 144/88 145/74 O2 Sat by Pulse 99 96 Oximetry - Reevaluation(s) Reevaluation #1: 09/13/24 16:46 Case, H&P, test results and ED management thus far were discussed with Dr. Jolly. She accepts hospital admission. She agrees with heparin anticoagulation given the patient's elevated troponin level. She also agrees with cardiology consultation. She has no further recommendations at this time. 09/13/24 16:54 Patient continues to deny having any chest pain at this time. Patient is aware of her test results, and she agrees with hospital admission at this time. Patient remains alert and breathing comfortably with a normal room air oxygen saturation. EKG Findings - EKG Comments: EKG Findings:: ED physician interpretation (interpreted by me): Normal sinus rh ythm, ventricular rate of 75 bpm, no ectopy, normal WA and QRS intervals, normal QT interval, normal axis, no ST or T wave abnormality Medical Decision Making - Medical Decision Making Was pt. sent in by a medical professional or institution (, PA, [employer], urgent care, hospital, or fpc...) When possible be specific @ -No Did you speak to anyone other than the patient for history (EMS, parent, family, police, friend...)? What history was obtained from this source @ -No Did you review nursing and triage notes (agree or disagree)? Why? @ -I reviewed and agree with nursing and triage notes Were old charts reviewed (outside hosp., previous admission, EMS record, old EKG, old radiological studies, urgent care reports/EKG's, fpc records)? Report findings @ -No old charts were reviewed Differential Diagnosis (chest pain, altered mental status, abdominal pain women, abdominal pain men, vaginal bleeding, weakness, fever, dyspnea, syncope, headache, dizziness, GI bleed, back pain, seizure, CVA, palpatations, mental h ealth, musculoskeletal)? @ -Hyperglycemia, DKA, medication noncompliance, dehydration, renal disease, electrolyte abnormality, infectious process, nausea, ACS/[place], medication reaction, viral illness, gastroenteritis, food toxicity, anxiety, this is not meant to be a complete list. EKG interpreted by me (3pts min.). @ -As above X-rays interpreted by me (1pt min.). @ -Patient's chest x-ray was reviewed myself and shows no acute cardiopulmonary process. I agree with the radiologist's interpretation as above. CT interpreted by me (1pt min.). @ -None done U/S interpreted by me (1pt. min.). @ -None done What testing was considered but not performed or refused? (CT, X-rays, U/S, labs)? Why? @ -None What meds were considered but not given or refused? Why? @ -None Did you discuss the management of the patient with other professionals (professionals i.e. , PA, [employer], lab, RT, psych nurse, social service worker, ex chef, teacher, sustainability officer, manager case management)? Give summary @ -No Was smoking cessation discussed for >3mins.? @ -No Was critical care preformed (if so, how long)? @ -Yes, 35 minutes. Were there social determinants of health that impacted care today? How? (Homelessness, low income, unemployed, alcoholism, drug addiction, transportation, low edu. Level, literacy, decrease access to med. care, fci, rehab)? @ -No Was there de-escalation of care discussed even if they declined (Discuss DNR or withdrawal of care, Hospice)? DNR status @ -No What co-morbidities impacted this encounter? (DM, HTN, Smoking, COPD, CAD, Cancer, CVA, ARF, Chemo, Hep., AIDS, mental health diagnosis, sleep apnea, morbid obesity)? @ -None Was patient admitted / discharged? Hospital course, mention meds given and route, prescriptions, significant lab abnormalities, going to OR and other pertinent info. @ -Patient denies having any chest pain while in the ED. Patient's EKG does not show any acute ischemic changes. Patient's troponin is however elevated at 0.728. Patient has been treated with a dose of oral aspirin, as well as IV heparin. Patient's blood glucose is also elevated at 695, but her acetone level is within normal limits. Patient has been treated for her hyperglycemia with IV fluids and subcutaneous regular insulin in the ED. Case was discussed with Dr. Jolly who has accepted hospital admission. A cardiology consultation order has been placed. Patient agrees with hospital admission at this time and this plan. Undiagnosed new problem with uncertain prognosis? @ -No Drug Therapy requiring intensive monitoring for toxicity (Heparin, Nitro, Insulin, Cardizem)? @ -No Were any procedures done? @ -No Diagnosis/symptom? @ -Elevated troponin Acute, or Chronic, or Acute on Chronic? @ -Default Uncomplicated (without systemic symptoms) or Complicated (systemic symptoms)? @ -Default Side effects of treatment? @ -No Exacerbation, Progression, or Severe Exacerbation? @ -No Poses a threat to life or bodily function? How? (Chest pain, [place], [place], pneumonia, PE, COPD, DKA, ARF, appy, cholecystitis, CVA, Diverticulitis, Homicidal, Suicidal, threat to staff... and all critical care pts) @ -Yes, possibly. Diagnosis/symptom? @ -Hyperglycemia Acute, or Chronic, or Acute on Chronic? @ -Default Uncomplicated (without systemic symptoms) or Complicated (systemic symptoms)? @ -Default Side effects of treatment? @ -None Exacerbation, Progression, or Severe Exacerbation] @ -No Poses a threat to life or bodily function? @ -No Diagnosis/symptom? @ -Nausea Acute, or Chronic, or Acute on Chronic? @ -Default Uncomplicated (without systemic symptoms) or Complicated (systemic symptoms)? @ -Default Side effects of treatment? @ -None Exacerbation, Progression, or Severe Exacerbation] @ -No Poses a threat to life or bodily function? @ -No - Lab Data Result diagrams: 09/13/24 16:02 09/13/24 16:02 Lab Results 09/13/24 09/13/24 09/13/24 Range/Units 16:02 16:02 16:02 WBC 10.30 H (4.50-10.00) 10*3/uL RBC 4.80 (4.10-5.20) 10*6/uL Hgb 13.1 (12.0-15.0) g/dL Hct 39.5 (37.2-46.3) % MCV 82.3 (80.0-97.0) fL MCH 27.3 (27.0-32.0) pg MCHC 33.2 (32.0-37.0) g/dL Plt Count 485 H (140-440) 10*3/uL MPV 9.0 L (9.5-12.2) fL Immature Gran % (Auto) 0.3 % Neutrophils % 70.5 % Lymphocytes % 22.4 % Monocytes % 4.9 % Eosinophils % 1.3 % Basophils % 0.6 % Immature Gran # 0.03 (0.00-0.04) 10*3/uL Neutrophils # 7.27 (1.80-7.70) 10*3/uL Lymphocytes # 2.31 (0.90-5.00) 10*3/uL Monocytes # 0.50 (0.20-1.00) 10*3/uL Eosinophils # 0.13 (0.04-0.35) 10*3/uL Basophils # 0.06 (0.00-0.10) 10*3/uL PT 10.2 (10.0-12.5) sec INR 0.9 (<1.2) APTT 22.4 (22.0-30.0) sec Sodium 125 L (137-145) mmol/L Potassium 5.0 (3.5-5.1) mmol/L Chloride 91 L (98-107) mmol/L Carbon Dioxide 16 L (22-30) mmol/L Anion Gap 18 mmol/L BUN 18 H (7-17) mg/dL Creatinine 0.74 (0.52-1.04) mg/dL Est GFR (CKD-EPI)AfAm >90 (>60 ml/min/1.73 sqM) Est GFR (CKD-EPI)NonAf >90 (>60 ml/min/1.73 sqM) Glucose 695 H* (74-99) mg/dL Calcium 9.0 (8.4-10.2) mg/dL Magnesium 1.5 L (1.6-2.3) mg/dL Total Bilirubin 0.5 (0.2-1.3) mg/dL AST 32 (14-36) U/L ALT 29 (4-34) U/L Alkaline Phosphatase 141 H (38-126) U/L Troponin I (0.000-0.034) ng/mL Total Protein 6.7 (6.3-8.2) g/dL Albumin 3.8 (3.5-5.0) g/dL Acetone, Qual Negative (Negative) 09/13/24 Range/Units 16:02 WBC (4.50-10.00) 10*3/uL RBC (4.10-5.20) 10*6/uL Hgb (12.0-15.0) g/dL Hct (37.2-46.3) % MCV (80.0-97.0) fL MCH (27.0-32.0) pg MCHC (32.0-37.0) g/dL Plt Count (140-440) 10*3/uL MPV (9.5-12.2) fL Immature Gran % (Auto) % Neutrophils % % Lymphocytes % % Monocytes % % Eosinophils % % Basophils % % Immature Gran # (0.00-0.04) 10*3/uL Neutrophils # (1.80-7.70) 10*3/uL Lymphocytes # (0.90-5.00) 10*3/uL Monocytes # (0.20-1.00) 10*3/uL Eosinophils # (0.04-0.35) 10*3/uL Basophils # (0.00-0.10) 10*3/uL PT (10.0-12.5) sec INR (<1.2) APTT (22.0-30.0) sec Sodium (137-145) mmol/L Potassium (3.5-5.1) mmol/L Chloride (98-107) mmol/L Carbon Dioxide (22-30) mmol/L Anion Gap mmol/L BUN (7-17) mg/dL Creatinine (0.52-1.04) mg/dL Est GFR (CKD-EPI)AfAm (>60 ml/min/1.73 sqM) Est GFR (CKD-EPI)NonAf (>60 ml/min/1.73 sqM) Glucose (74-99) mg/dL Calcium (8.4-10.2) mg/dL Magnesium (1.6-2.3) mg/dL Total Bilirubin (0.2-1.3) mg/dL AST (14-36) U/L ALT (4-34) U/L Alkaline Phosphatase (38-126) U/L Troponin I 0.728 H* (0.000-0.034) ng/mL Total Protein (6.3-8.2) g/dL Albumin (3.5-5.0) g/dL Acetone, Qual (Negative) - Radiology Data Chest x-ray: No acute cardiopulmonary disease/process. Critical Care Time Critical Care Time: Yes Total Critical Care Time: 35 Disposition Clinical Impression: Nausea, Hyperglycemia, Elevated troponin Disposition: ADMITTED IP TO THIS HOSP Condition: Stable Is patient prescribed a controlled substance at d/c from ED?: No Time of Disposition: 16:46
[2024-09-13 16:09] LABS: Basophils # (A) 0.06 10*3/uL (0.00-0.10); Basophils % (A) 0.6 %; Eosinophils # (A) 0.13 10*3/uL (0.04-0.35); Eosinophils % (A) 1.3 %; HCT 39.5 % (37.2-46.3); HGB 13.1 g/dL (12.0-15.0); Lymphocytes # (A) 2.31 10*3/uL (0.90-5.00); Lymphocytes % (A) 22.4 %; MCH 27.3 pg (27.0-32.0); MCHC 33.2 g/dL (32.0-37.0); MCV 82.3 fL (80.0-97.0); Monocytes % (A) 4.9 %; Neutrophils # (A) 7.27 10*3/uL (1.80-7.70); Neutrophils % (A) 70.5 %; Platelet Count 485 10*3/uL (140-440); RDW 16.1 % (11.5-14.5)
[2024-09-13] MEDS: SODIUM CHLORIDE 0.9% 1,000 ML IV STA (16:12)
[2024-09-13] MEDS: ONDANSETRON 4 MG/2 ML VIAL IVP STA (16:12)
[2024-09-13 16:28] LABS: INR 0.9 (<1.2); Partial Thromboplastin Time 22.4 sec (22.0-30.0); Prothrombin Time 10.2 sec (10.0-12.5)
[2024-09-13 16:30] LABS: AST 32 U/L (14-36); African American GFR (CKD) >90 (>60 ml/min/1.73 sqM); Albumin 3.8 g/dL (3.5-5.0); Alkaline Phosphatase 141 U/L (38-126); Anion Gap 18 mmol/L; Blood Urea Nitrogen 18 mg/dL (7-17); Carbon Dioxide 16 mmol/L (22-30); Chloride 91 mmol/L (98-107); Magnesium 1.5 mg/dL (1.6-2.3); Non-African American GFR(CKD) >90 (>60 ml/min/1.73 sqM); Sodium 125 mmol/L (137-145); Total Bilirubin 0.5 mg/dL (0.2-1.3); Total Protein 6.7 g/dL (6.3-8.2)
[2024-09-13 16:38] LABS: ALT 29 U/L (4-34)
[2024-09-13 16:39] LABS: Glucose 695 mg/dL (74-99)
[2024-09-13] MEDS ORDERED: NALOXONE 0.4 MG/ML 1 ML VIAL IV PRN (16:46)
[2024-09-13 17:01] LABS: Appearance,Urine Clear (Clear); Bilirubin,Urine Negative (Negative); Blood,Urine Negative (Negative); Color,Urine Colorless; Glucose,Urine (UA) 4+ (Negative); Ketones,Urine Negative (Negative); Leukocyte Esterase,Urine Negative (Negative); Nitrite,Urine Negative (Negative); PH, Urine 5.5 (5.0-8.0); Protein,Urine Trace (Negative); Specific Gravity,Urine 1.023 (1.001-1.035); Urobilinogen,Urine <2.0 mg/dL (<2.0)
--- NOTE | 2024-09-13 17:19 | XR ---
EXAMINATION TYPE: XR chest 2V DATE OF EXAM: 09/13/2024 5:14 PM CLINICAL INDICATION:Female, 53 years old with history of elevated troponin; [facility] COMPARISON: Chest radiographs from chest radiograph 08/16/2024 TECHNIQUE: XR chest 2V Frontal view of the chest. FINDINGS: Lungs/Pleura: Mild prominence of interstitial markings bilaterally likely chronic in nature. There is no evidence of pleural effusion, focal consolidation, or pneumothorax. Pulmonary vascularity: Unremarkable. Heart/mediastinum: Cardiomediastinal silhouette is unremarkable. Musculoskeletal: No acute osseous pathology. IMPRESSION: No acute cardiopulmonary disease/process. [facility], , 09/13/2024 5:17 PM
[2024-09-13] MEDS: HEPARIN SODIUM 1,000 UN/ML (10ML VL) IV ONE (17:21)
[2024-09-13] MEDS: HEPARIN SOD,PORK IN 0.45% NACL 25,000 UNIT in 0.45% NACL 1 250ML.BAG IV SCH (17:21)
[2024-09-13] MEDS: ASPIRIN 325 MG TAB PO STA (17:23)
[2024-09-13] MEDS: INSULIN REGULAR 100 UNIT/ML VIAL (IM/SQ) SQ STA (17:23)
[2024-09-13 19:33] LABS: Glucose,Whole Blood 572 mg/dL (70-110)
[2024-09-13 23:47] LABS: Glucose,Whole Blood 392 mg/dL (70-110)
[2024-09-14] MEDS: HEPARIN SODIUM 1,000 UN/ML (10ML VL) IV PRN (00:15)
[2024-09-14 06:28] LABS: Basophils # (A) 0.05 10*3/uL (0.00-0.10); Basophils % (A) 0.6 %; Eosinophils # (A) 0.17 10*3/uL (0.04-0.35); HCT 38.4 % (37.2-46.3); HGB 12.9 g/dL (12.0-15.0); Lymphocytes # (A) 3.84 10*3/uL (0.90-5.00); Lymphocytes % (A) 44.8 %; MCH 27.6 pg (27.0-32.0); MCHC 33.6 g/dL (32.0-37.0); MCV 82.2 fL (80.0-97.0); Mean Platelet Volume 10.4 fL (9.5-12.2); Monocytes # (A) 0.42 10*3/uL (0.20-1.00); Monocytes % (A) 4.9 %; Neutrophils # (A) 4.07 10*3/uL (1.80-7.70); Neutrophils % (A) 47.5 %; Platelet Count 343 10*3/uL (140-440); RBC 4.67 10*6/uL (4.10-5.20); RDW 16.4 % (11.5-14.5); WBC 8.57 10*3/uL (4.50-10.00)
[2024-09-14 06:47] LABS: ALT 19 U/L (4-34); AST 27 U/L (14-36); African American GFR (CKD) >90 (>60 ml/min/1.73 sqM); Albumin 3.5 g/dL (3.5-5.0); Alkaline Phosphatase 138 U/L (38-126); Anion Gap 11 mmol/L; Blood Urea Nitrogen 16 mg/dL (7-17); Carbon Dioxide 21 mmol/L (22-30); Chloride 98 mmol/L (98-107); Glucose 284 mg/dL (74-99); Non-African American GFR(CKD) >90 (>60 ml/min/1.73 sqM); Potassium 4.9 mmol/L (3.5-5.1); Sodium 130 mmol/L (137-145); Total Bilirubin 0.5 mg/dL (0.2-1.3); Total Protein 6.3 g/dL (6.3-8.2)
[2024-09-14 06:49] LABS: INR 0.9 (<1.2); Prothrombin Time 10.4 sec (10.0-12.5)
[2024-09-14 06:53] LABS: Partial Thromboplastin Time 19.3 sec (22.0-30.0)
[2024-09-14] MEDS ORDERED: hydrALAZINE HCL 25 MG TAB PO SCH (09:00)
[2024-09-14] MEDS: ASPIRIN 81 MG PO SCH (09:21)
[2024-09-14] MEDS: LOSARTAN 25 MG TAB PO SCH (09:21)
[2024-09-14] MEDS: METOPROLOL TARTRATE 12.5 MG TAB PO SCH (09:21)
[2024-09-14] MEDS ORDERED: DEXTROSE 50% SYRINGE 50 ML IVP PRN ×6 (10:30→12:44)
[2024-09-14 10:35] LABS: Glucose,Whole Blood 512 mg/dL (70-110)
--- NOTE | 2024-09-14 10:43 | P.CRDCN ---
History of Present Illness History of present illness: HISTORY OF PRESENT ILLNESS: This is a 53-year-old female with a past medical history significant for hypertension, hyperlipidemia, diabetes, and obesity. 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 We have been asked to see the patient in consultation for elevated troponins. Patient examined at the bedside in the emergency room. Patient presented to the hospital with a chief complaint of nausea and decreased oral intake. Blood sugars were noted to be in the 500s. Patient denies any chest pain or pressure. Denies any SOB. Patient was found to have elevated troponins and was started on IV heparin. Blood pressure elevated with a systolic in the 150s this morning. Patient states she has been compliant with all of her medications on an outpatient basis. It is noted that the patient has a public guardian. DIAGNOSTICS: - EKG reveals sinus mechanism with no signs of acute ischemia. - Chest xray negative for acute process. - Laboratory data: WBC 8.57. Hemoglobin 12.9. Platelet count 343. Sodium 130. Potassium 4.9. BUN 16. Creatinine 0.61. Troponin 0.728. 0.683. 0.564. - Current home cardiac medications include Lipitor 80 mg at night, hydralazine 25 mg twice a day. - Most recent echocardiogram obtained in April 2019 revealed ejection fraction 55 to 60%, mild TR - Cardiac catheterization history: [address] Laurent revealing normal coronary arteries REVIEW OF SYSTEMS: At the time of my exam: CONSTITUTIONAL: Denies fever or chills. HEENT: Denies blurred vision, vision changes, or eye pain. Denies hemoptysis CARDIOVASCULAR: Denies chest pain. Denies orthopnea. Denies PND. Denies palpitations RESPIRATORY: Denies shortness of breath. GASTROINTESTINAL: Denies abdominal pain. Denies nausea or vomiting. HEMATOLOGIC: Denies bleeding disorders. GENITOURINARY: Denies any blood in urine. SKIN: Denies pruitis. Denies rash. PHYSICAL EXAM: VITAL SIGNS: Reviewed. GENERAL: Well-developed in no acute distress. HEENT: Head is normocephalic. Pupils are equal, round. Sclerae anicteric. Mucous membranes of the mouth are moist. Neck supple. No JVD or thyromegaly LUNGS: Respirations even and unlabored. Lungs essentially clear to auscultation bilaterally. HEART: Regular rate and rhythm. S1 and S2 heard. ABDOMEN: Soft. Nondistended. Nontender. EXTREMITIES: Normal range of motion. No clubbing or cyanosis. Peripheral pulses intact. No lower extremity edema NEUROLOGIC: Awake and alert. Oriented x 3. ASSESSMENT: Nausea and decreased oral intake Hyperglycemia with BS in the 500s NSTEMI History of diabetes Hypertension Hyperlipidemia History of ventricular septal defect with surgical repair Normal coronary arteries, per cardiac catheterization 2018 Obesity: BMI 35.2 PLAN: Continue IV heparin for additional 24 hours Obtain 2D echo to assess cardiac structure and function Continue atorvastatin Add aspirin, losartan, and metoprolol Discontinue hydralazine Check lipid panel and hemoglobin A1c Continue with medical management this time Primary medicine to address hyperglycemia Further recommendations pending patient course Nurse practitioner note has been reviewed by physician. Signing provider agrees with the documented findings, assessment, and plan of care documented by LINUX SYSTEM ADMIN as a scribe. Past Medical History Past Medical History: Diabetes Mellitus, GERD/Reflux, Hyperlipidemia, Hypertension, Syncope Additional Past Medical History / Comment(s): Pt recently admitted to [facility] on 07/21/21 with uncontrolled IDDM and hyperkalemia. Other hx: Recurrent pancreatitis, hypertriglyceridemia, elevated lipase, IDDM type II, UTI, chronic low back pain, bulging discs, dental abscesses in past. History of Any Multi-Drug Resistant Organisms: MRSA Date of last positivie culture/infection: 03/01/23 MDRO Source:: Abdomen Past Surgical History: Tubal Ligation Additional Past Surgical History / Comment(s): Age 7 had VSD repair, tumor removal 03/2023 Past Anesthesia/Blood Transfusion Reactions: No Reported Reaction Past Psychological History: No Psychological Hx Reported Smoking Status: Former smoker, Second hand smoke exposure, Vaper Past Alcohol Use History: None Reported Past Drug Use History: None Reported - Past Family History Mother Family Medical History: No Reported History Additional Family Medical History / Comment(s): Mother was healthy. She is , pt cannot recall cause of . Father Family Medical History: Pneumonia Additional Family Medical History / Comment(s): Father at the age of 67yrs from pneumonia Medications and Allergies Home Medications Medication Instructions Recorded Confirmed Type Atorvastatin [Lipitor] 80 mg PO HS 06/25/19 09/13/24 History hydrALAZINE HCL [Apresoline] 25 mg PO BID #60 tab 03/11/23 09/13/24 Rx Famotidine [Pepcid] 20 mg PO DAILY #20 tablet 04/18/24 09/13/24 Rx Insulin Aspart [NovoLOG Flexpen] 20 units SQ AC-TID 09/13/24 09/13/24 History Insulin Glargine,Hum.rec.anlog 35 unit SQ HS 09/13/24 09/13/24 History [Basaglar Kwikpen U-100] Allergies Allergy/AdvReac Type Severity Reaction Status Date / Time levofloxacin [From Levaquin] Allergy Rash/Hives Verified 09/13/24 17:11 Physical Exam Vitals: Vital Signs Temp Pulse Resp BP Pulse Ox 09/14/24 07:28 98.0 F 55 L 18 152/80 96 09/14/24 05:29 98.2 F 62 16 152/80 96 09/14/24 02:14 60 16 165/84 98 09/13/24 23:28 98.3 F 63 16 169/77 97 09/13/24 20:00 98.4 F 67 18 146/82 97 09/13/24 19:26 76 18 144/80 97 09/13/24 18:21 82 17 151/87 99 09/13/24 16:57 78 18 145/74 96 09/13/24 15:13 99.3 F 80 18 144/88 99 Intake and Output 09/13/24 09/14/24 09/14/24 22:59 06:59 14:59 Intake Total 67.443 Balance 67.443 Intake: Intake, IV Titration 67.443 Amount Heparin Sod,Pork in 0.45% 67.443 NaCl 25,000 unit In 0.45 % NaCl 1 250ml.bag @ 12 UNITS/KG/HR 9.798 mls/hr IV .Q24H [facility] Rx#: [id number] Other: Weight 81.647 kg Results 09/14/24 05:51 09/14/24 05:51 Cardiac Enzymes 09/13/24 09/13/24 09/13/24 Range/Units 16:02 16:02 19:42 AST 32 (14-36) U/L Troponin I 0.728 H* 0.683 H* (0.000-0.034) ng/mL 09/14/24 09/14/24 Range/Units 02:13 05:51 AST 27 (14-36) U/L Troponin I 0.564 H* (0.000-0.034) ng/mL Coagulation 09/13/24 09/13/24 09/14/24 Range/Units 16:02 22:55 05:51 PT 10.2 10.4 (10.0-12.5) sec APTT 22.4 22.3 19.3 L (22.0-30.0) sec CBC 09/13/24 09/14/24 Range/Units 16:02 05:51 WBC 10.30 H 8.57 (4.50-10.00) 10*3/uL RBC 4.80 4.67 (4.10-5.20) 10*6/uL Hgb 13.1 12.9 (12.0-15.0) g/dL Hct 39.5 38.4 (37.2-46.3) % Plt Count 485 H 343 (140-440) 10*3/uL Comprehensive Metabolic Panel 09/13/24 09/14/24 Range/Units 16:02 05:51 Sodium 125 L 130 L (137-145) mmol/L Potassium 5.0 4.9 (3.5-5.1) mmol/L Chloride 91 L 98 (98-107) mmol/L Carbon Dioxide 16 L 21 L (22-30) mmol/L BUN 18 H 16 (7-17) mg/dL Creatinine 0.74 0.61 (0.52-1.04) mg/dL Glucose 695 H* 284 H (74-99) mg/dL Calcium 9.0 9.0 (8.4-10.2) mg/dL AST 32 27 (14-36) U/L ALT 29 19 (4-34) U/L Alkaline Phosphatase 141 H 138 H (38-126) U/L Total Protein 6.7 6.3 (6.3-8.2) g/dL Albumin 3.8 3.5 (3.5-5.0) g/dL Current Medications Generic Name Dose Route Start Last Admin Trade Name Freq PRN Reason Stop Dose Admin Heparin Sodium (Porcine) 0 unit 09/13/24 16:44 09/14/24 00:15 Heparin Sodium 1,000 Un/Ml (10ml Vl) IV 4,000 unit PER PROTOCOL PRN Administration Low PTT Protocol Heparin Sodium/Sodium Chloride 250 mls @ 9.798 mls/hr 09/13/24 16:45 09/14/24 00:14 25,000 unit/ Sodium Chloride IV 15 units/kg/hr .Q24H YARON 12.247 mls/hr Titration Protocol 12 UNITS/KG/HR Naloxone HCl 0.2 mg 09/13/24 16:46 Naloxone 0.4 Mg/Ml 1 Ml Vial IV Q2M PRN Opioid Reversal Intake and Output 09/13/24 09/14/24 09/14/24 22:59 06:59 14:59 Intake Total 67.443 Balance 67.443 Intake: Intake, IV Titration 67.443 Amount Heparin Sod,Pork in 0.45% 67.443 NaCl 25,000 unit In 0.45 % NaCl 1 250ml.bag @ 12 UNITS/KG/HR 9.798 mls/hr IV .Q24H [facility] Rx#: [id number] Other: Weight 81.647 kg 09/14/24 05:51 09/14/24 05:51
[2024-09-14] MEDS ORDERED: INSULIN REGULAR 100 UNIT in SODIUM CHLORIDE 0.9% 100 ML IV SCH ×2 (10:45→12:45)
[2024-09-14] MEDS: INSULIN LISPRO (HumaLOG) 100 UNIT/ML 10 mL VL SQ SCH (11:00)
[2024-09-14] MEDS: HYDROcodone/APAP 5-325MG 1 EACH TAB PO PRN (11:02)
[2024-09-14] MEDS: SODIUM CHLORIDE 0.9% 1,000 ML IV SCH (11:03)
[2024-09-14] MEDS: PANTOPRAZOLE 40 MG/10 ML VIAL IVP SCH (11:04)
--- NOTE | 2024-09-14 11:09 | XR ---
EXAMINATION TYPE: XR ankle limited LT DATE OF EXAM: 09/14/2024 COMPARISON: Left ankle radiographs 09/02/2024 HISTORY: Pain TECHNIQUE: Frontal and lateral views of the left ankle were obtained. FINDINGS: There is no evidence for fracture or dislocation. Ankle mortise is intact. Small posterior and plantar calcaneal enthesophytes. Mild soft tissue swelling of the ankle. IMPRESSION: 1. No evidence for acute fracture. 2. Mild soft tissue swelling of the ankle. [facility], , 09/14/2024 11:07 AM
--- NOTE | 2024-09-14 11:11 | XR ---
EXAMINATION TYPE: XR foot limited LT DATE OF EXAM: 09/14/2024 11:00 AM INDICATION: Patient age:Female; 53 years old; Reason for study: ankle and foot pain, pt reports strain; PHH. pain COMPARISON: Left ankle radiograph 09/15/2024, 09/02/2024, left foot radiograph 08/03/2024, 07/23/2024 TECHNIQUE: The left foot was examined in the frontal and lateral projections. FINDINGS: No evidence of any acute osseous pathology. No evidence of soft tissue swelling. Joints are preserve d. Small posterior and plantar calcaneal enthesophytes. Vascular sclerosis. IMPRESSION: No evidence of acute fracture. [facility], , 09/14/2024 11:08 AM
[2024-09-14] MEDS ORDERED: INSULIN LISPRO (HumaLOG) 100 UNIT/ML 10 mL VL SQ SCH (12:30)
[2024-09-14] MEDS: INSULIN REGULAR 100 UNIT in SODIUM CHLORIDE 0.9% 100 ML IV SCH (13:20)
[2024-09-14 13:28] LABS: Glucose,Whole Blood 597 mg/dL (70-110)
[2024-09-14 14:48] LABS: Glucose,Whole Blood 422 mg/dL (70-110)
[2024-09-14 15:36] LABS: Chol/HDL Ratio 12.77 Ratio; HDL Cholesterol 26.4 mg/dL (40.00-60.00); VLDL Calculation 325.4 mg/dL (5.00-40.00)
[2024-09-14 16:01] LABS: Glucose,Whole Blood 339 mg/dL (70-110)
[2024-09-14 16:51] LABS: Glucose,Whole Blood 185 mg/dL (70-110)
--- NOTE | 2024-09-14 17:18 | HP ---
HISTORY AND PHYSICAL CHIEF COMPLAINT: Weakness, generalized aches and pains, left ankle pain, and high blood sugars. HISTORY OF PRESENT ILLNESS: This 53-year-old woman with a past medical history of multiple medical problems, admitted with aches all over. The patient also complaining of left ankle pain after a sprain. The evaluation showed the blood sugar went up to 512 with initial acetone was negative. The troponins elevated to 0.564 and the patient admitted for further evaluation and treatment. There is no history of fever, rigors, or chills at this time. PAST MEDICAL HISTORY: Reviewed, include diabetes mellitus, hypertension, and hyperlipidemia. Rest of the chart was also reviewed. HOME MEDICATIONS: Reviewed, include insulin Lantus and rest of the medications reviewed. ALLERGIES: Include Levaquin. FAMILY HISTORY: No history of heart disease or strokes in the family. SOCIAL HISTORY: History of vaping, previous history of smoking. REVIEW OF SYSTEMS: Fourteen-point review of systems negative except as mentioned earlier. PHYSICAL EXAMINATION: VITAL SIGNS: Pulse is 55, blood pressure 160/80, and respirations 18. HEENT: Conjunctivae normal. NECK: No jugular venous distention. CARDIOVASCULAR: S1, S2. RESPIRATION: Clear to auscultation. ABDOMEN: Soft, nontender. LEGS: Left ankle painful movements, swelling also present. NERVOUS SYSTEM: No focal deficit. SKIN: No rashes. LABORATORY DATA: Reviewed. ASSESSMENT: 1. Diabetes mellitus type 2, uncontrolled with hyperosmolar state, rule out diabetic ketoacidosis. 2. Generalized aches and pains. 3. Troponin elevated up to 0.564. Rule out acute kyd-PV-blwbrof-elevation myocardial infarction. 4. Left ankle sprain. 5. Hypertension. 6. Hyperlipidemia. 7. History of recurrent pancreatitis. 8. History of methicillin-resistant Staphylococcus aureus. 9. Multiple complex medical issues. 10.History of VSD repair. RECOMMENDATIONS AND DISCUSSION: This 53-year-old woman presented with multiple complex medical issues. We will monitor the patient closely. Continue the current medications. I would recommend insulin drip. Symptomatic treatment of the pain. Cardiology consultation for the elevated troponin. 2D echo with Doppler. Resume the home medications control and monitor the blood sugars closely. Prognosis guarded, because of the multiple complex medical issues. Further recommendations to follow. MMODL / IJN: [id number] /
[2024-09-14 17:49] LABS: Glucose,Whole Blood 168 mg/dL (70-110)
[2024-09-14 19:00] LABS: Glucose,Whole Blood 154 mg/dL (70-110)
[2024-09-14 19:46] LABS: Glucose,Whole Blood 142 mg/dL (70-110)
[2024-09-14] MEDS: ATORVASTATIN 80 MG TAB PO SCH (20:01)
[2024-09-14 20:51] LABS: Glucose,Whole Blood 114 mg/dL (70-110)
[2024-09-14 21:43] LABS: Glucose,Whole Blood 145 mg/dL (70-110)
[2024-09-14 23:48] LABS: Glucose,Whole Blood 254 mg/dL (70-110)
[2024-09-15 00:54] LABS: Glucose,Whole Blood 233 mg/dL (70-110)
[2024-09-15] MEDS: ONDANSETRON 4 MG/2 ML VIAL IVP PRN (01:15)
[2024-09-15 01:51] LABS: Glucose,Whole Blood 197 mg/dL (70-110)
[2024-09-15 02:50] LABS: Glucose,Whole Blood 206 mg/dL (70-110)
[2024-09-15 03:44] LABS: Glucose,Whole Blood 222 mg/dL (70-110)
[2024-09-15 04:47] LABS: Glucose,Whole Blood 172 mg/dL (70-110)
[2024-09-15 05:43] LABS: Glucose,Whole Blood 128 mg/dL (70-110)
[2024-09-15 06:39] LABS: Glucose,Whole Blood 138 mg/dL (70-110)
[2024-09-15 07:33] LABS: African American GFR (CKD) >90 (>60 ml/min/1.73 sqM); Anion Gap 7 mmol/L; Blood Urea Nitrogen 19 mg/dL (7-17); Calcium 8.6 mg/dL (8.4-10.2); Carbon Dioxide 24 mmol/L (22-30); Chloride 105 mmol/L (98-107); Glucose 131 mg/dL (74-99); Non-African American GFR(CKD) >90 (>60 ml/min/1.73 sqM); Potassium 4.3 mmol/L (3.5-5.1); Sodium 136 mmol/L (137-145)
[2024-09-15 07:34] LABS: Glucose,Whole Blood 157 mg/dL (70-110)
[2024-09-15 07:48] LABS: Basophils # (A) 0.08 10*3/uL (0.00-0.10); Basophils % (A) 0.7 %; Eosinophils # (A) 0.23 10*3/uL (0.04-0.35); Eosinophils % (A) 2.1 %; HCT 38.2 % (37.2-46.3); HGB 12.9 g/dL (12.0-15.0); Lymphocytes # (A) 4.31 10*3/uL (0.90-5.00); Lymphocytes % (A) 38.8 %; MCH 28.2 pg (27.0-32.0); MCHC 33.8 g/dL (32.0-37.0); MCV 83.6 fL (80.0-97.0); Mean Platelet Volume 9.5 fL (9.5-12.2); Monocytes # (A) 0.62 10*3/uL (0.20-1.00); Monocytes % (A) 5.6 %; Neutrophils # (A) 5.82 10*3/uL (1.80-7.70); Neutrophils % (A) 52.4 %; Platelet Count 486 10*3/uL (140-440); RBC 4.57 10*6/uL (4.10-5.20); RDW 16.5 % (11.5-14.5)
--- NOTE | 2024-09-15 08:03 | P.CNOR ---
History of Present Illness - HPI History of present illness: The patient is a very pleasant 53-year-old female with multiple medical problems presently admitted to internal medicine. Ortho has been consulted for a left sprain. According to the patient she was discharged home from the ER a week or so ago when she injured her ankle. She has had pain and swelling at that time. This morning she is complaining of isolated pain in her left ankle and foot. 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 Past Medical History Past Medical History: Diabetes Mellitus, GERD/Reflux, Hyperlipidemia, Hypertension, Syncope Additional Past Medical History / Comment(s): Pt recently admitted to [facility] on 07/21/21 with uncontrolled IDDM and hyperkalemia. Other hx: Recurrent pancreatitis, hypertriglyceridemia, elevated lipase, IDDM type II, UTI, chronic low back pain, bulging discs, dental abscesses in past. History of Any Multi-Drug Resistant Organisms: MRSA Year Discovered:: 03/01/23 MDRO Source:: Abdomen Past Surgical History: Tubal Ligation Additional Past Surgical History / Comment(s): Age 7 had VSD repair, tumor removal 03/2023 Past Anesthesia/Blood Transfusion Reactions: No Reported Reaction Past Psychological History: No Psychological Hx Reported Additional Psychological History / Comment(s): She uses cane. She does not drive. She gets to appointments by walking or using the bus system. She has a glucometer at home. Smoking Status: Former smoker, Second hand smoke exposure, Vaper Past Alcohol Use History: None Reported Additional Past Alcohol Use History / Comment(s): Pt started smoking in 2000- pt states she quit smoking February or March of 2021 Past Drug Use History: None Reported - Past Family History Mother Family Medical History: No Reported History Additional Family Medical History / Comment(s): Mother was healthy. She is , pt cannot recall cause of . Father Family Medical History: Pneumonia Additional Family Medical History / Comment(s): Father at the age of 67yrs from pneumonia Medications and Allergies Home Medications Medication Instructions Recorded Confirmed Type Atorvastatin [Lipitor] 80 mg PO HS 06/25/19 09/13/24 History hydrALAZINE HCL [Apresoline] 25 mg PO BID #60 tab 03/11/23 09/13/24 Rx Famotidine [Pepcid] 20 mg PO DAILY #20 tablet 04/18/24 09/13/24 Rx Insulin Aspart [NovoLOG Flexpen] 20 units SQ AC-TID 09/13/24 09/13/24 History Insulin Glargine,Hum.rec.anlog 35 unit SQ HS 09/13/24 09/13/24 History [Basaglar Kwikpen U-100] Allergies Allergy/AdvReac Type Severity Reaction Status Date / Time levofloxacin [From Levaquin] Allergy Rash/Hives Verified 09/13/24 17:11 Physical Examination Sleeping in bed. She awakens with verbal stimuli. No apparent distress. A focused exam of the left lower extremity was conducted. There is mild swelling over the ankle and foot. No skin breakdown or open wounds. She has tenderness over the ATFL and foot. She is able to actively plantarflex and dorsiflex her ankle and her toes. Results X-rays of the foot and ankle were reviewed. There are no obvious fractures. - Labs Labs: Abnormal Lab Results - Last 24 Hours (Table) 09/14/24 09/14/24 09/14/24 Range/Units 05:51 05:51 10:33 WBC (4.50-10.00) 10*3/uL Plt Count (140-440) 10*3/uL APTT (22.0-30.0) sec Sodium (137-145) mmol/L BUN (7-17) mg/dL Glucose (74-99) mg/dL POC Glucose (mg/dL) 512 H* (70-110) mg/dL Hemoglobin A1c 14.9 H (<=6.0) % Triglycerides 1627.00 H (0.00-149.00) mg/dL Cholesterol 337.00 H (0.00-200.00) mg/dL VLDL Cholesterol, Calc 325.40 H (5.00-40.00) mg/dL HDL Cholesterol 26.40 L (40.00-60.00) mg/dL 09/14/24 09/14/24 09/14/24 Range/Units 13:26 14:47 15:58 WBC (4.50-10.00) 10*3/uL Plt Count (140-440) 10*3/uL APTT 39.4 H (22.0-30.0) sec Sodium (137-145) mmol/L BUN (7-17) mg/dL Glucose (74-99) mg/dL POC Glucose (mg/dL) 597 H* 422 H (70-110) mg/dL Hemoglobin A1c (<=6.0) % Triglycerides (0.00-149.00) mg/dL Cholesterol (0.00-200.00) mg/dL VLDL Cholesterol, Calc (5.00-40.00) mg/dL HDL Cholesterol (40.00-60.00) mg/dL 09/14/24 09/14/24 09/14/24 Range/Units 15:59 16:50 17:48 WBC (4.50-10.00) 10*3/uL Plt Count (140-440) 10*3/uL APTT (22.0-30.0) sec Sodium (137-145) mmol/L BUN (7-17) mg/dL Glucose (74-99) mg/dL POC Glucose (mg/dL) 339 H 185 H 168 H (70-110) mg/dL Hemoglobin A1c (<=6.0) % Triglycerides (0.00-149.00) mg/dL Cholesterol (0.00-200.00) mg/dL VLDL Cholesterol, Calc (5.00-40.00) mg/dL HDL Cholesterol (40.00-60.00) mg/dL 09/14/24 09/14/24 09/14/24 Range/Units 18:58 19:44 20:42 WBC (4.50-10.00) 10*3/uL Plt Count (140-440) 10*3/uL APTT (22.0-30.0) sec Sodium (137-145) mmol/L BUN (7-17) mg/dL Glucose (74-99) mg/dL POC Glucose (mg/dL) 154 H 142 H 114 H (70-110) mg/dL Hemoglobin A1c (<=6.0) % Triglycerides (0.00-149.00) mg/dL Cholesterol (0.00-200.00) mg/dL VLDL Cholesterol, Calc (5.00-40.00) mg/dL HDL Cholesterol (40.00-60.00) mg/dL 09/14/24 09/14/24 09/15/24 Range/Units 21:41 23:45 00:46 WBC (4.50-10.00) 10*3/uL Plt Count (140-440) 10*3/uL APTT (22.0-30.0) sec Sodium (137-145) mmol/L BUN (7-17) mg/dL Glucose (74-99) mg/dL POC Glucose (mg/dL) 145 H 254 H 233 H (70-110) mg/dL Hemoglobin A1c (<=6.0) % Triglycerides (0.00-149.00) mg/dL Cholesterol (0.00-200.00) mg/dL VLDL Cholesterol, Calc (5.00-40.00) mg/dL HDL Cholesterol (40.00-60.00) mg/dL 09/15/24 09/15/24 09/15/24 Range/Units 01:49 02:48 03:43 WBC (4.50-10.00) 10*3/uL Plt Count (140-440) 10*3/uL APTT (22.0-30.0) sec Sodium (137-145) mmol/L BUN (7-17) mg/dL Glucose (74-99) mg/dL POC Glucose (mg/dL) 197 H 206 H 222 H (70-110) mg/dL Hemoglobin A1c (<=6.0) % Triglycerides (0.00-149.00) mg/dL Cholesterol (0.00-200.00) mg/dL VLDL Cholesterol, Calc (5.00-40.00) mg/dL HDL Cholesterol (40.00-60.00) mg/dL 09/15/24 09/15/24 09/15/24 Range/Units 04:45 05:40 06:37 WBC (4.50-10.00) 10*3/uL Plt Count (140-440) 10*3/uL APTT (22.0-30.0) sec Sodium (137-145) mmol/L BUN (7-17) mg/dL Glucose (74-99) mg/dL POC Glucose (mg/dL) 172 H 128 H 138 H (70-110) mg/dL Hemoglobin A1c (<=6.0) % Triglycerides (0.00-149.00) mg/dL Cholesterol (0.00-200.00) mg/dL VLDL Cholesterol, Calc (5.00-40.00) mg/dL HDL Cholesterol (40.00-60.00) mg/dL 09/15/24 09/15/24 09/15/24 Range/Units 06:40 06:40 07:33 WBC 11.10 H (4.50-10.00) 10*3/uL Plt Count 486 H (140-440) 10*3/uL APTT (22.0-30.0) sec Sodium 136 L (137-145) mmol/L BUN 19 H (7-17) mg/dL Glucose 131 H (74-99) mg/dL POC Glucose (mg/dL) 157 H (70-110) mg/dL Hemoglobin A1c (<=6.0) % Triglycerides (0.00-149.00) mg/dL Cholesterol (0.00-200.00) mg/dL VLDL Cholesterol, Calc (5.00-40.00) mg/dL HDL Cholesterol (40.00-60.00) mg/dL H & H 09/13/24 09/14/24 09/15/24 Range/Units 16:02 05:51 06:40 Hgb 13.1 12.9 12.9 (12.0-15.0) g/dL Hct 39.5 38.4 38.2 (37.2-46.3) % Coagulation 09/13/24 09/14/24 Range/Units 16:02 05:51 INR 0.9 0.9 (<1.2) Result Diagrams: 09/15/24 06:40 09/15/24 06:40 Assessment and Plan Assessment: Left ankle sprain Plan: Recommend nonoperative treatment. Patient can weight-bear as tolerated on her left leg. A prescription was placed on the chart for a tall cam boot. Physical therapy for gait training. The patient can follow-up in our office following discharge with our foot and ankle specialist Dr. Shaw.
[2024-09-15 08:57] LABS: Glucose,Whole Blood 211 mg/dL (70-110)
[2024-09-15 09:43] LABS: Glucose,Whole Blood 325 mg/dL (70-110)
--- NOTE | 2024-09-15 11:00 | CA ---
Transthoracic Echo Report Name: Dayna Le Age: 53 Gender: F : 1970 Exam Date: 09/14/2024 11:56 Exam Location: [facility] Ht (in): 60 Wt (lb): 180 Ordering Physician: Lisa Santoro Attending/Referring Phys: [id number], Maude Principal Clerk Typist Guerline Lovett RDCS Procedure CPT: Indications: elevated troponins Cardiac Hx: VSD Repair Technical Quality: Fair Contrast 1: Total Dose (mL): Contrast 2: Total Dose (mL): MEASUREMENTS (Male / Female) Normal Values 2D ECHO LV Diastolic Diameter PLAX 4.1 cm 4.2 - 5.9 / 3.9 - 5.3 cm LV Systolic Diameter PLAX 2.9 cm IVS Diastolic Thickness 1.0 cm 0.6 - 1.0 / 0.6 - 0.9 cm LVPW Diastolic Thickness 1.0 cm 0.6 - 1.0 / 0.6 - 0.9 cm LV Relative Wall Thickness 0.5 RV Internal Dim ED PLAX 1.8 cm LA Systolic Diameter LX 4.1 cm 3.0 - 4.0 / 2.7 - 3.8 cm LV Diastolic Volume MOD BP 59.1 cm??? 67 - 155 / 56 - 104 cm??? LV Systolic Volume MOD BP 24.0 cm??? - 58 / 19 - 49 cm??? LV Ejection Fraction MOD BP 59.5 % >= 55 % LV Cardiac Index MOD BP 1110.2 cm???/min???m??? LV Diastolic Volume MOD 4C 55.2 cm??? LV Systolic Volume MOD 4C 19.6 cm??? LV Ejection Fraction MOD 4C 64.4 % LV Cardiac Index MOD 4C 1123.3 cm???/min???m??? LV Diastolic Length 4C 7.1 cm LV Systolic Length 4C 5.4 cm LV Diastolic Volume MOD 2C 63.5 cm??? LV Systolic Volume MOD 2C 24.1 cm??? LV Ejection Fraction MOD 2C 62.0 % LV Cardiac Index MOD 2C 1243.9 cm???/min???m??? LV Diastolic Length 2C 7.3 cm LV Systolic Length 2C 6.6 cm LA Volume 46.8 cm??? 18 - 58 / 22 - 52 cm??? LA Volume Index 24.6 cm???/m??? 16 - 28 cm???/m??? M-MODE Aortic Root Diameter MM 3.1 cm LA Systolic Diameter MM 4.1 cm LA Ao Ratio MM 1.3 AV Cusp Separation MM 2.0 cm DOPPLER AV Peak Velocity 174.2 cm/s AV Peak Gradient 12.1 mmHg MV Area PHT 2.5 cm??? Mitral E Point Velocity 96.1 cm/s Mitral A Point Velocity 117.7 cm/s Mitral E to A Ratio 0.8 MV Deceleration Time 307.2 ms TR Peak Velocity 241.5 cm/s TR Peak Gradient 23.3 mmHg Right Ventricular Systolic Press 27.4 mmHg FINDINGS Left Ventricle Left ventricular ejection fraction is estimated at 55-60 %. Normal left ventricular systolic function with no obvious regional wall motion abnormalities.left ventricular cavity size normal. Right Ventricle Normal right ventricular size and function. Right ventricular systolic pressure within normal limits. Right Atrium Normal right atrial size. Left Atrium Mildly increased left atrial diameter. Mitral Valve Structurally normal mitral valve. Mild mitral regurgitation. No mitral stenosis. Aortic Valve Trileaflet aortic valve. No aortic stenosis. No aortic regurgitation. Tricuspid Valve Structurally normal tricuspid valve. Moderate tricuspid regurgitation. No tricuspid stenosis. Pulmonic Valve Structurally normal pulmonic valve. Trace pulmonic regurgitation. No pulmonic stenosis. Pericardium No pericardial or pleural effusion. Aorta Normal size aortic root and proximal ascending aorta. CONCLUSIONS 1. Normal left ventricular size and systolic function 2. Mild mitral with moderate tricuspid regurgitation with no evidence of pulmonary hypertension Previewed by: Dr. Talha Gooden MD (Electronically Signed) Final Date: 15 September 2024 10:59
[2024-09-15] MEDS ORDERED: ALPRAZolam 0.5 MG TAB PO PRN (11:08)
[2024-09-15] MEDS ORDERED: NITROGLYCERIN SL TABS 0.4 MG TAB SUBLINGUAL PRN (11:08)
--- NOTE | 2024-09-15 11:11 | P.PN ---
Subjective HISTORY OF PRESENT ILLNESS: This is a 53-year-old female with a past medical history significant for hypertension, hyperlipidemia, diabetes, and obesity. Patient does not follow with a clinical services director. We have been asked to see the patient in consultation for elevated troponins. Patient examined at the bedside in the emergency room. Patient presented to the hospital with a chief complaint of nausea and decreased oral intake. Blood sugars were noted to be in the 500s. Patient denies any chest pain or pressure. Denies any SOB. Patient was found to have elevated troponins and was started on IV heparin. Blood pressure elevated with a systolic in the 150s this morning. Patient states she has been compliant with all of her medications on an outpatient basis. It is noted that the patient has a public guardian. 09/15/2024 Patient seen and examined resting comfortably laying flat in bed in no acute distress. She denies chest pain. Her only complaint is left foot pain for which she has been seen by orthopedics and has a left ankle sprain. Echocardiogram reviewed, normal LV systolic function ejection fraction 55 to 60%, mild mitral regurgitation, moderate tricuspid regurgitation RVSP 27. Laboratory data reviewed, WBC 11, hemoglobin 12.9, platelets 486, sodium 136, potassium 4.3, creatinine 0.67, blood sugars are much better controlled today. Blood pressure 110/62 heart rate 65 afebrile maintaining oxygen saturation on room air. PHYSICAL EXAM: VITAL SIGNS: Reviewed. GENERAL: Well-developed in no acute distress. HEENT: Head is normocephalic. Pupils are equal, round. Sclerae anicteric. Mucous membranes of the mouth are moist. Neck supple. No JVD or thyromegaly LUNGS: Respirations even and unlabored. Lungs essentially clear to auscultation bilaterally. HEART: Regular rate and rhythm. S1 and S2 heard. ABDOMEN: Soft. Nondistended. Nontender. EXTREMITIES: Normal range of motion. No clubbing or cyanosis. Peripheral pu lses intact. No lower extremity edema NEUROLOGIC: Awake and alert. Oriented x 3. ASSESSMENT: Nausea and decreased oral intake Hyperglycemia with BS in the 500s NSTEMI History of diabetes Hypertension Hyperlipidemia History of ventricular septal defect with surgical repair Normal coronary arteries, per cardiac catheterization 2018 Obesity: BMI 35.2 PLAN: N.p.o. after midnight tonight for probable cardiac catheterization tomorrow. Explained to the patient in detail. She does have a legal guardian. Discussed with her nurse and she will call and obtain consent. Further recommendations pending patient course Nurse practitioner note has been reviewed by physician. Signing provider agrees with the documented findings, assessment, and plan of care documented by ENGINE DISPATCHER as a scribe. Objective - Vital Signs Vital signs: Vital Signs Temp 98.5 F 09/15/24 08:00 Pulse 65 09/15/24 08:00 Resp 16 09/15/24 08:00 BP 110/62 09/15/24 08:00 Pulse Ox 95 09/15/24 08:00 FiO2 Intake & Output 09/14/24 09/15/24 09/15/24 18:59 06:59 18:59 Intake Total 822.326 466.905 368 Output Total 100 Balance 722.326 466.905 368 Weight 81.647 kg 79.9 kg Intake: Intake, IV Titration 222.326 466.905 250 Amount Heparin Sod,Pork in 0.45% 182.557 250 NaCl 25,000 unit In 0.45 % NaCl 1 250ml.bag @ 12 UNITS/KG/HR 9.798 mls/hr IV .Q24H Y[facility]ON Rx#: [id number] Insulin Regular 100 unit 400 In Sodium Chloride 0.9% 100 ml @ Titrate IV .Q0M Y[facility]ON Rx#:[id number] Insulin Regular 100 unit 39.769 66.905 0 In Sodium Chloride 0.9% 100 ml @ Titrate IV .Q0M Y[facility]ON Rx#:[id number] Oral 600 118 Output: Urine 100 Other: # Voids 2 # Bowel Movements 1 - Labs CBC & Chem 7: 09/15/24 06:40 09/15/24 06:40 Labs: Abnormal Lab Results - Last 24 Hours (Table) 09/14/24 09/14/24 09/14/24 Range/Units 05:51 05:51 13:26 WBC (4.50-10.00) 10*3/uL Plt Count (140-440) 10*3/uL APTT (22.0-30.0) sec Sodium (137-145) mmol/L BUN (7-17) mg/dL Glucose (74-99) mg/dL POC Glucose (mg/dL) 597 H* (70-110) mg/dL Hemoglobin A1c 14.9 H (<=6.0) % Triglycerides 1627.00 H (0.00-149.00) mg/dL Cholesterol 337.00 H (0.00-200.00) mg/dL VLDL Cholesterol, Calc 325.40 H (5.00-40.00) mg/dL HDL Cholesterol 26.40 L (40.00-60.00) mg/dL 09/14/24 09/14/24 09/14/24 Range/Units 14:47 15:58 15:59 WBC (4.50-10.00) 10*3/uL Plt Count (140-440) 10*3/uL APTT 39.4 H (22.0-30.0) sec Sodium (137-145) mmol/L BUN (7-17) mg/dL Glucose (74-99) mg/dL POC Glucose (mg/dL) 422 H 339 H (70-110) mg/dL Hemoglobin A1c (<=6.0) % Triglycerides (0.00-149.00) mg/dL Cholesterol (0.00-200.00) mg/dL VLDL Cholesterol, Calc (5.00-40.00) mg/dL HDL Cholesterol (40.00-60.00) mg/dL 09/14/24 09/14/24 09/14/24 Range/Units 16:50 17:48 18:58 WBC (4.50-10.00) 10*3/uL Plt Count (140-440) 10*3/uL APTT (22.0-30.0) sec Sodium (137-145) mmol/L BUN (7-17) mg/dL Glucose (74-99) mg/dL POC Glucose (mg/dL) 185 H 168 H 154 H (70-110) mg/dL Hemoglobin A1c (<=6.0) % Triglycerides (0.00-149.00) mg/dL Cholesterol (0.00-200.00) mg/dL VLDL Cholesterol, Calc (5.00-40.00) mg/dL HDL Cholesterol (40.00-60.00) mg/dL 09/14/24 09/14/24 09/14/24 Range/Units 19:44 20:42 21:41 WBC (4.50-10.00) 10*3/uL Plt Count (140-440) 10*3/uL APTT (22.0-30.0) sec Sodium (137-145) mmol/L BUN (7-17) mg/dL Glucose (74-99) mg/dL POC Glucose (mg/dL) 142 H 114 H 145 H (70-110) mg/dL Hemoglobin A1c (<=6.0) % Triglycerides (0.00-149.00) mg/dL Cholesterol (0.00-200.00) mg/dL VLDL Cholesterol, Calc (5.00-40.00) mg/dL HDL Cholesterol (40.00-60.00) mg/dL 09/14/24 09/14/24 09/15/24 Range/Units 22:52 23:45 00:46 WBC (4.50-10.00) 10*3/uL Plt Count (140-440) 10*3/uL APTT (22.0-30.0) sec Sodium (137-145) mmol/L BUN (7-17) mg/dL Glucose (74-99) mg/dL POC Glucose (mg/dL) 211 H 254 H 233 H (70-110) mg/dL Hemoglobin A1c (<=6.0) % Triglycerides (0.00-149.00) mg/dL Cholesterol (0.00-200.00) mg/dL VLDL Cholesterol, Calc (5.00-40.00) mg/dL HDL Cholesterol (40.00-60.00) mg/dL 09/15/24 09/15/24 09/15/24 Range/Units 01:49 02:48 03:43 WBC (4.50-10.00) 10*3/uL Plt Count (140-440) 10*3/uL APTT (22.0-30.0) sec Sodium (137-145) mmol/L BUN (7-17) mg/dL Glucose (74-99) mg/dL POC Glucose (mg/dL) 197 H 206 H 222 H (70-110) mg/dL Hemoglobin A1c (<=6.0) % Triglycerides (0.00-149.00) mg/dL Cholesterol (0.00-200.00) mg/dL VLDL Cholesterol, Calc (5.00-40.00) mg/dL HDL Cholesterol (40.00-60.00) mg/dL 09/15/24 09/15/24 09/15/24 Range/Units 04:45 05:40 06:37 WBC (4.50-10.00) 10*3/uL Plt Count (140-440) 10*3/uL APTT (22.0-30.0) sec Sodium (137-145) mmol/L BUN (7-17) mg/dL Glucose (74-99) mg/dL POC Glucose (mg/dL) 172 H 128 H 138 H (70-110) mg/dL Hemoglobin A1c (<=6.0) % Triglycerides (0.00-149.00) mg/dL Cholesterol (0.00-200.00) mg/dL VLDL Cholesterol, Calc (5.00-40.00) mg/dL HDL Cholesterol (40.00-60.00) mg/dL 09/15/24 09/15/24 09/15/24 Range/Units 06:40 06:40 07:33 WBC 11.10 H (4.50-10.00) 10*3/uL Plt Count 486 H (140-440) 10*3/uL APTT (22.0-30.0) sec Sodium 136 L (137-145) mmol/L BUN 19 H (7-17) mg/dL Glucose 131 H (74-99) mg/dL POC Glucose (mg/dL) 157 H (70-110) mg/dL Hemoglobin A1c (<=6.0) % Triglycerides (0.00-149.00) mg/dL Cholesterol (0.00-200.00) mg/dL VLDL Cholesterol, Calc (5.00-40.00) mg/dL HDL Cholesterol (40.00-60.00) mg/dL 09/15/24 Range/Units 09:42 WBC (4.50-10.00) 10*3/uL Plt Count (140-440) 10*3/uL APTT (22.0-30.0) sec Sodium (137-145) mmol/L BUN (7-17) mg/dL Glucose (74-99) mg/dL POC Glucose (mg/dL) 325 H (70-110) mg/dL Hemoglobin A1c (<=6.0) % Triglycerides (0.00-149.00) mg/dL Cholesterol (0.00-200.00) mg/dL VLDL Cholesterol, Calc (5.00-40.00) mg/dL HDL Cholesterol (40.00-60.00) mg/dL
[2024-09-15 11:13] VITALS: BMI 34.4
[2024-09-15 11:27] LABS: Glucose,Whole Blood 261 mg/dL (70-110)
[2024-09-15] MEDS ORDERED: DEXTROSE 50% SYRINGE 50 ML IVP PRN ×2 (12:05)
[2024-09-15] MEDS: INSULIN LISPRO (HumaLOG) 100 UNIT/ML 10 mL VL SQ SCH (13:16)
[2024-09-15] MEDS: INSULIN GLARGINE (LANTUS) 100 UNIT/ML SYR SQ SCH (13:16)
--- NOTE | 2024-09-15 13:53 | PN ---
PROGRESS NOTE DATE OF SERVICE: 09/15/2024 SUBJECTIVE: This 53-year-old woman, is admitted with uncontrolled diabetes mellitus still on insulin drip. The patient also had left ankle sprain. Troponins elevated. Cardiology is planning a stress test. PHYSICAL EXAMINATION: VITAL SIGNS: Pulse is 65, blood pressure 119/70, respirations 16. CHEST: A few scattered rhonchi. ABDOMEN: Soft. NERVOUS SYSTEM: Nonfocal. LABORATORY DATA: Reviewed. ASSESSMENT: 1. Diabetes mellitus type 2, uncontrolled with hyperosmolar state. No evidence of diabetic ketoacidosis and generalized aches and pains. 2. Troponin elevated up to 0.564. Rule out acute yux-[id number]-elevation myocardial infarction. 3. Left ankle sprain. 4. Hypertension. 5. Hyperlipidemia. 6. Multiple complex medical issues. RECOMMENDATIONS AND DISCUSSION: Recommend to continue current management and continue symptomatic treatment. Initiate combination of short and long-acting insulins. Closely follow with Cardiology. Orthopedic input appreciated. Further recommendations to follow. MMODL / IJN: [id number] /
[2024-09-15 16:31] LABS: Glucose,Whole Blood 302 mg/dL (70-110)
[2024-09-15] MEDS: INSULIN GLARGINE (LANTUS) 100 UNIT/ML SYR SQ ONE (18:04)
[2024-09-15 19:59] LABS: Glucose,Whole Blood 348 mg/dL (70-110)
[2024-09-16] MEDS: ALPRAZolam 0.25 MG TAB PO PRN (03:45)
[2024-09-16 06:00] LABS: Glucose,Whole Blood 274 mg/dL (70-110)
[2024-09-16] MEDS: ASPIRIN 325 MG TAB PO ONE (06:20)
[2024-09-16 08:21] LABS: Basophils # (A) 0.06 10*3/uL (0.00-0.10); Basophils % (A) 0.8 %; Eosinophils # (A) 0.18 10*3/uL (0.04-0.35); Eosinophils % (A) 2.3 %; HGB 12.2 g/dL (12.0-15.0); Lymphocytes # (A) 3.55 10*3/uL (0.90-5.00); Lymphocytes % (A) 45.6 %; MCH 27.2 pg (27.0-32.0); MCHC 32.1 g/dL (32.0-37.0); MCV 84.8 fL (80.0-97.0); Mean Platelet Volume 9.1 fL (9.5-12.2); Monocytes # (A) 0.38 10*3/uL (0.20-1.00); Monocytes % (A) 4.9 %; Neutrophils # (A) 3.58 10*3/uL (1.80-7.70); Platelet Count 422 10*3/uL (140-440); RBC 4.48 10*6/uL (4.10-5.20); RDW 16.3 % (11.5-14.5); WBC 7.78 10*3/uL (4.50-10.00)
[2024-09-16 08:45] LABS: ALT 16 U/L (4-34); AST 21 U/L (14-36); African American GFR (CKD) >90 (>60 ml/min/1.73 sqM); Albumin 3.2 g/dL (3.5-5.0); Alkaline Phosphatase 124 U/L (38-126); Anion Gap 8 mmol/L; Blood Urea Nitrogen 14 mg/dL (7-17); Calcium 8.6 mg/dL (8.4-10.2); Carbon Dioxide 21 mmol/L (22-30); Chloride 107 mmol/L (98-107); Glucose 189 mg/dL (74-99); Non-African American GFR(CKD) >90 (>60 ml/min/1.73 sqM); Potassium 4.8 mmol/L (3.5-5.1); Sodium 136 mmol/L (137-145); Total Bilirubin 0.5 mg/dL (0.2-1.3)
[2024-09-16 11:35] LABS: Glucose,Whole Blood 176 mg/dL (70-110)
--- NOTE | 2024-09-16 11:42 | P.PN ---
Subjective HISTORY OF PRESENT ILLNESS: This is a 53-year-old female with a past medical history significant for hypertension, hyperlipidemia, diabetes, and obesity. Patient does not follow with a inpatient auditor. We have been asked to see the patient in consultation for elevated troponins. Patient examined at the bedside in the emergency room. Patient presented to the hospital with a chief complaint of nausea and decreased oral intake. Blood sugars were noted to be in the 500s. Patient denies any chest pain or pressure. Denies any SOB. Patient was found to have elevated troponins and was started on IV heparin. Blood pressure elevated with a systolic in the 150s this morning. Patient states she has been compliant with all of her medications on an outpatient basis. It is noted that the patient has a public guardian. DIAGNOSTICS: - EKG reveals sinus mechanism with no signs of acute ischemia. - Chest xray negative for acute process. - Laboratory data: WBC 8.57. Hemoglobin 12.9. Platelet count 343. Sodium 130. Potassium 4.9. BUN 16. Creatinine 0.61. Troponin 0.728. 0.683. 0.564. - Current home cardiac medications include Lipitor 80 mg at night, hydralazine 25 mg twice a day. - Most recent echocardiogram obtained in April 2019 revealed ejection fraction 55 to 60%, mild TR - Cardiac catheterization history: [address] Laurent revealing normal coronary arteries 09/15/2024 Patient seen and examined resting comfortably laying flat in bed in no acute distress. She denies chest pain. Her only complaint is left foot pain for wh ich she has been seen by orthopedics and has a left ankle sprain. Echocardiogram reviewed, normal LV systolic function ejection fraction 55 to 60%, mild mitral regurgitation, moderate tricuspid regurgitation RVSP 27. Laboratory data reviewed, WBC 11, hemoglobin 12.9, platelets 486, sodium 136, potassium 4.3, creatinine 0.67, blood sugars are much better controlled today. Blood pressure 110/62 heart rate 65 afebrile maintaining oxygen saturation on room air. 09/16/2024 Patient examined this morning at bedside. Patient currently denies chest pain or pressure. She denies shortness of breath. Vital signs are stable. PHYSICAL EXAM: VITAL SIGNS: Reviewed. GENERAL: Well-developed in no acute distress. HEENT: Head is normocephalic. Pupils are equal, round. Sclerae anicteric. Mucous membranes of the mouth are moist. Neck supple. No JVD or thyromegaly LUNGS: Respirations even and unlabored. Lungs essentially clear to auscultation bilaterally. HEART: Regular rate and rhythm. S1 and S2 heard. ABDOMEN: Soft. Nondistended. Nontender. EXTREMITIES: Normal range of motion. No clubbing or cyanosis. Peripheral pulses intact. No lower extremity edema NEUROLOGIC: Awake and alert. Oriented x 3. ASSESSMENT: Nausea and decreased oral intake Hyperglycemia with BS in the 500s NSTEMI Diabetes, uncontrolled, hemoglobin A1c 14.9 Hypertension Hyperlipidemia History of ventricular septal defect with surgical repair Normal coronary arteries, per cardiac catheterization 2019 Obesity: BMI 35.2 PLAN: Continue aspirin, Lipitor, losartan, and metoprolol Patient to undergo cardiac catheterization today with Dr. Martínez Further recommendations pending patient course Nurse practitioner note has been reviewed by physician. Signing provider agrees with the documented findings, assessment, and plan of care documented by DIRECTOR OF INSTRUCTIONAL TECHNOLOGY as a scribe. Objective - Vital Signs Vital signs: Vital Signs Temp 98 F 09/16/24 08:00 Pulse 47 L 09/16/24 08:00 Resp 16 09/16/24 08:00 BP 123/59 09/16/24 08:00 Pulse Ox 97 09/16/24 08:00 FiO2 Intake & Output 09/15/24 09/16/24 09/16/24 18:59 06:59 18:59 Intake Total 815.771 119.395 Balance 815.771 119.395 Weight 79.9 kg 79 kg Intake: Intake, IV Titration 357.771 119.395 Amount Heparin Sod,Pork in 0.45% 357.771 119.395 NaCl 25,000 unit In 0.45 % NaCl 1 250ml.bag @ 12 UNITS/KG/HR 9.798 mls/hr IV .Q24H [facility] Rx#: [id number] Insulin Regular 100 unit 0 In Sodium Chloride 0.9% 100 ml @ Titrate IV .Q0M [facility] Rx#:[id number] Oral 458 Other: Voiding Method Toilet Toilet # Voids 2 1 - Labs CBC & Chem 7: 09/16/24 07:38 09/16/24 07:38 Labs: Abnormal Lab Results - Last 24 Hours (Table) 09/15/24 09/15/24 09/16/24 Range/Units 16:29 19:57 05:59 MPV (9.5-12.2) fL Sodium (137-145) mmol/L Carbon Dioxide (22-30) mmol/L Glucose (74-99) mg/dL POC Glucose (mg/dL) 302 H 348 H 274 H (70-110) mg/dL Total Protein (6.3-8.2) g/dL Albumin (3.5-5.0) g/dL 09/16/24 09/16/24 09/16/24 Range/Units 07:38 07:38 11:33 MPV 9.1 L (9.5-12.2) fL Sodium 136 L (137-145) mmol/L Carbon Dioxide 21 L (22-30) mmol/L Glucose 189 H (74-99) mg/dL POC Glucose (mg/dL) 176 H (70-110) mg/dL Total Protein 6.0 L (6.3-8.2) g/dL Albumin 3.2 L (3.5-5.0) g/dL
[2024-09-16] MEDS: HEPARIN SODIUM,PORCINE (1 ML) 2,500 UNIT in SODIUM CHLORIDE 0.9% 250 ML IRRIGATION PRN (11:48)
[2024-09-16] MEDS: HEPARIN SODIUM,PORCINE 10,000 UNIT in SODIUM CHLORIDE 0.9% 1,000 ML IRRIGATION PRN (11:48)
[2024-09-16] MEDS: SODIUM CHLORIDE 0.9% 1,000 ML IV ONE (11:48)
[2024-09-16] MEDS: LIDOCAINE 2% (PF) 20 MG/ML 5 ML VIAL SQ ONE (12:10)
[2024-09-16] MEDS: MIDAZOLAM 2 MG/2 ML VIAL IVP ONE ×2 (12:10→12:15)
[2024-09-16] MEDS: HEPARIN SODIUM 1,000 UN/ML (10ML VL) IVP ONE (12:17)
[2024-09-16] MEDS: HYDROmorphone 0.5 MG/0.5 ML SYRINGE IVP ONE (12:20)
[2024-09-16] MEDS: IOPAMIDOL-370 100ML BTL INTRATHECA ONE (12:27)
--- NOTE | 2024-09-16 12:41 | P.CARDCATH ---
Date of Procedure: 09/16/24 Description of Procedure: History: Patient was referred for cardiac catheterization to evaluate for CAD. This is a 54-year-old lady with uncontrolled diabetes and hypertension came into the hospital with multiple comorbid conditions including hyperglycemia and was on insulin drip. She had chest pain atypical in quality with mild troponin elevation equally focal EKG changes but given her risk factors and presentation she was advised coronary angiogram after due discussion regarding risks benefits and options. She understood all details and wished to proceed with the procedure. She has a history of cardiac surgery when she was 8 years old probably ASD closure details unavailable. There is a sternotomy scar Procedure Details: The risks, benefits, complications, treatment options, and expected outcomes were discussed with the patient. The patient and/or family concurred with the proposed plan, giving informed consent. Patient was brought to the semiconductor lab technician after IV hydration was begun and oral premedication was given. Patient was further sedated with midazolam. Patient was prepped and draped in the usual manner. Under strict aseptic precautions and local anesthesia a 6 Green[place]ic introducer was placed in the right radial artery. Using a JL 3/5 and a JR 4/0 catheters I performed coronary an giography and the same JR catheter was used to check LV pressures and LV gram was not performed. After the procedure was completed the sheaths and catheters were all removed. Hemostasis was achieved with TR band. Saturation in the fingers of the right hand was about 94%. Moderate conscious sedation time was 17 minutes. Patient's oxygen saturation hemodynamics and EKG were monitored closely. . Findings: Hemodynamics: The left ventricle end-diastolic pressure was 5 mmHg without any gradient across aortic valve Left Main: Short patent vessel no significant disease immediately bifurcates i nto LAD and circumflex] LAD: Good caliber good distribution vessel gives off a large diagonal branch in the midportion minor irregularities no significant disease. LAD caliber decreases after the diagonal branch and it runs all the way to the apex has minor irregularities no significant stenosis. CIRC: Technically nondominant vessel gives off a obtuse marginal proximally and then continues as a PDA branch minor irregularities no significant disease in the nondominant circumflex RCA: Dominant vessel no significant disease in the proximal portion at the junction of proximal and middle one third there is a smooth 40% narrowing does not seem to be significant in caliber improves and distally bifurcates into a large PLV and a fair caliber PDA. The RCA therefore has a smooth 40% mid narrowing does not appear to be significant tortuous vessel with a very acute takeoff from the ostium. No other significant areas of disease LV: Not performed Closure Device: TR Complications: Estimated Blood Loss: Minimal Impression: Right dominant system normal filling pressures 40% mid RCA. No significant disease in left main LAD or circumflex Pre Procedure Diagnosis: ST elevation CA with CAD Final Post Procedure Diagnosis: Single-vessel noncritical CAD Recommendation: Aggressive medical therapy with risk factor modification. Findings discussed with patient no family available. After optimizing blood sugar control she may be discharged tomorrow. Complications: None; patient tolerated the procedure well. Disposition: Pacu - hemodynamically stable. Condition: Stable Discharge Disposition: Discharge patient home later on today.
[2024-09-16 16:30] LABS: Glucose,Whole Blood 227 mg/dL (70-110)
[2024-09-16] MEDS: INSULIN GLARGINE (LANTUS) 100 UNIT/ML SYR SQ SCH (17:03)
[2024-09-16 20:07] LABS: Glucose,Whole Blood 216 mg/dL (70-110)
[2024-09-17 01:54] LABS: Glucose,Whole Blood 298 mg/dL (70-110)
--- NOTE | 2024-09-17 05:30 | P.PN ---
Subjective Progress Note Date: 09/16/24 This is a 54-year-old male who came in with reports of chest pain, left ankle pain and foot pain along with hyperglycemia. Patient is maintained on IV heparin with cardiology following scheduled to undergo cardiac catheterization today. Patient is currently n.p.o. and continues to report pain in the left ankle. Patient denies any chest pain or shortness of breath and has been tolerating diet. Patient continues to ask when she can go home. Will discuss with cardiology after cardiac catheterization if patient is cleared for discharge. Review of systems: Constitutional: No reports of fatigue, fever, or chills Cardiovascular: No reports of chest pain or palpitations Respiratory: No reports of shortness of breath or cough GI: No reports of nausea, no reports of vomiting, reports of being hungry : No reports of dysuria or retention Neurovascular: No reports of generalized weakness, reports continued left inguinal pain All medications have been reviewed PHYSICAL EXAMINATION: GENERAL: The patient is alert and oriented x3, Well developed, well nourished. Elderly appearing, obese HEENT: Pupils are round and equally reacting to light. EOMI. no scleral icterus. No conjunctival pallor. Normocephalic, atraumatic. No pharyngeal erythema. No thyromegaly. CARDIOVASCULAR: S1 and S2 muffled PULMONARY: diminished breath sounds bilaterally with no wheezing or rhonchi noted. ABDOMEN: soft. Nontender on exam. obese. non-distended, normoactive bowel sounds. No palpable organomegaly. MUSCULOSKELETAL: No joint swelling or deformity. EXTREMITIES: No cyanosis, clubbing, or pedal edema. Left ankle and foot with no obvious deformity, tender on palpation NEUROLOGICAL: Gross neurological examination did not reveal any focal deficits. Diffuse weakness SKIN: No rashes. Assessment: Diabetes mellitus, type II uncontrolled with hyperglycemia and hyperosmolar state, no evidence of DKA on admission Generalized aches and pains with left ankle pain, no fractures noted, sprain per orthopedics Troponin elevated at 0.564, rule out NSTEMI and scheduled to undergo cardiac catheterization today Hypertension Hyperlipidemia Obesity with a BMI 34.0 GI prophylaxis DVT prophylaxis Full code Plan: Recommend to continue with current medications and management with cardiology following. Patient undergoing cardiac catheterization today and is currently NPO. Continue to monitor blood sugars closely and resume diet once cleared by cardiology. Will adjust insulin accordingly Patient is asking when she can go home and will discuss further with cardiology once catheterization is complete and if requiring any further intervention Due to multiple complex medical issues, prognosis is guarded Possible discharge planning later today or tomorrow. Continue telemetry monitoring for now The impression and plan of care has been dictated by Shalini Ramirez, nurse practitioner as directed. Dr. Toño MD I have performed a history and examination and MDM of this patient, discussed the same with the dictator, and agree with the dictator's assessment and plan as written ,documented as a scribe. Based on total visit time, I have performed more than 50% of the visit. Any additional findings or plans will be noted. Objective - Vital Signs Vital signs: Vital Signs Temp 98 F 09/16/24 08:00 Pulse 52 L 09/16/24 14:15 Resp 16 09/16/24 14:15 BP 144/67 09/16/24 14:15 Pulse Ox 100 09/16/24 14:15 FiO2 Intake & Output 09/15/24 09/16/24 09/16/24 18:59 06:59 18:59 Intake Total 815.771 119.395 319.5 Balance 815.771 119.395 319.5 Weight 79.9 kg 79 kg Intake: IV 201.5 Intake, IV Titration 357.771 119.395 Amount Heparin Sod,Pork in 0.45% 357.771 119.395 NaCl 25,000 unit In 0.45 % NaCl 1 250ml.bag @ 12 UNITS/KG/HR 9.798 mls/hr IV .Q24H [facility] Rx#: [id number] Insulin Regular 100 unit 0 In Sodium Chloride 0.9% 100 ml @ Titrate IV .Q0M [facility] Rx#:[id number] Oral 458 118 Other: Voiding Method Toilet Toilet # Voids 2 1 - Labs CBC & Chem 7: 09/16/24 07:38 09/16/24 07:38 Labs: Abnormal Lab Results - Last 24 Hours (Table) 09/15/24 09/16/24 09/16/24 Range/Units 19:57 05:59 07:38 MPV 9.1 L (9.5-12.2) fL Sodium (137-145) mmol/L Carbon Dioxide (22-30) mmol/L Glucose (74-99) mg/dL POC Glucose (mg/dL) 348 H 274 H (70-110) mg/dL Total Protein (6.3-8.2) g/dL Albumin (3.5-5.0) g/dL 09/16/24 09/16/24 09/16/24 Range/Units 07:38 11:33 16:29 MPV (9.5-12.2) fL Sodium 136 L (137-145) mmol/L Carbon Dioxide 21 L (22-30) mmol/L Glucose 189 H (74-99) mg/dL POC Glucose (mg/dL) 176 H 227 H (70-110) mg/dL Total Protein 6.0 L (6.3-8.2) g/dL Albumin 3.2 L (3.5-5.0) g/dL
[2024-09-17 05:59] LABS: Glucose,Whole Blood 307 mg/dL (70-110)
[2024-09-17 08:24] VITALS: BP 153/73; PULSE 51; RESP 16; TEMP 98.1
--- NOTE | 2024-09-17 13:25 | P.PN ---
Subjective HISTORY OF PRESENT ILLNESS: This is a 53-year-old female with a past medical history significant for hypertension, hyperlipidemia, diabetes, and obesity. 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 We have been asked to see the patient in consultation for elevated troponins. Patient examined at the bedside in the emergency room. Patient presented to the hospital with a chief complaint of nausea and decreased oral intake. Blood sugars were noted to be in the 500s. Patient denies any chest pain or pressure. Denies any SOB. Patient was found to have elevated troponins and was started on IV heparin. Blood pressure elevated with a systolic in the 150s this morning. Patient states she has been compliant with all of her medications on an outpatient basis. It is noted that the patient has a public guardian. DIAGNOSTICS: - EKG reveals sinus mechanism with no signs of acute ischemia. - Chest xray negative for acute process. - Laboratory data: WBC 8.57. Hemoglobin 12.9. Platelet count 343. Sodium 130. Potassium 4.9. BUN 16. Creatinine 0.61. Troponin 0.728. 0.683. 0.564. - Current home cardiac medications include Lipitor 80 mg at night, hydralazine 25 mg twice a day. - Most recent echocardiogram obtained in April 2019 revealed ejection fraction 55 to 60%, mild TR - Cardiac catheterization history: [address] Laurent revealing normal coronary arteries 09/15/2024 Patient seen and examined resting comfortably laying flat in bed in no acute distress. She denies chest pain. Her only complaint is left foot pain for wh ich she has been seen by orthopedics and has a left ankle sprain. Echocardiogram reviewed, normal LV systolic function ejection fraction 55 to 60%, mild mitral regurgitation, moderate tricuspid regurgitation RVSP 27. Laboratory data reviewed, WBC 11, hemoglobin 12.9, platelets 486, sodium 136, potassium 4.3, creatinine 0.67, blood sugars are much better controlled today. Blood pressure 110/62 heart rate 65 afebrile maintaining oxygen saturation on room air. 09/16/2024 Patient examined this morning at bedside. Patient currently denies chest pain or pressure. She denies shortness of breath. Vital signs are stable. 09/17/2024 Patient is s/p cardiac catheterization with Dr. Martínez revealing 40% mid RCA stenosis. No significant disease in left main LAD or circumflex. Patient examined this morning at bedside. Patient currently denies chest pain or pressure. She denies shortness of breath. Patient did have some bradycardia overnight. PHYSICAL EXAM: VITAL SIGNS: Reviewed. GENERAL: Well-developed in no acute distress. HEENT: Head is normocephalic. Pupils are equal, round. Sclerae anicteric. Mucous membranes of the mouth are moist. Neck supple. No JVD or thyromegaly LUNGS: Respirations even and unlabored. Lungs essentially clear to auscultation bilaterally. HEART: Regular rate and rhythm. S1 and S2 heard. ABDOMEN: Soft. Nondistended. Nontender. EXTREMITIES: Normal range of motion. No clubbing or cyanosis. Peripheral pulses intact. No lower extremity edema NEUROLOGIC: Awake and alert. Oriented x 3. ASSESSMENT: Nausea and decreased oral intake Hyperglycemia with BS in the 500s NSTEMI, status post cardiac catheterization revealing 40% mid RCA stenosis Diabetes, uncontrolled, hemoglobin A1c 14.9 Hypertension Hyperlipidemia History of ventricular septal defect with surgical repair Normal coronary arteries, per cardiac catheterization 2019 Obesity: BMI 35.2 PLAN: Continue aspirin, Lipitor, losartan, and metoprolol Change metoprolol tartrate to 12.5 mg in the morning only due to nighttime bradycardia Patient is stable for discharge home today from a cardiac standpoint Nurse practitioner note has been reviewed by physician. Signing provider agrees with the documented findings, assessment, and plan of care documented by FOREPART RASPER as a scribe. Objective - Vital Signs Vital signs: Vital Signs Temp 98.1 F 09/17/24 08:00 Pulse 51 L 09/17/24 08:00 Resp 16 09/17/24 08:00 BP 153/73 09/17/24 08:00 Pulse Ox 95 09/17/24 08:00 FiO2 Intake & Output 09/16/24 09/17/24 09/17/24 18:59 06:59 18:59 Intake Total 1219.5 560 236 Balance 1219.5 560 236 Weight 80.4 kg Intake: IV 201.5 Intake, IV Titration 900 Amount Sodium Chloride 0.9% 1, 900 000 ml @ 0 mls/hr IV .STO&P Pro -[facility] Rx#:[id number] Oral 118 560 236 Other: Voiding Method Toilet Toilet Toilet # Voids 2 - Labs CBC & Chem 7: 09/16/24 07:38 06/11/25 07:38 Labs: Abnormal Lab Results - Last 24 Hours (Table) 09/16/24 09/16/24 09/17/24 Range/Units 16:29 20:05 01:52 POC Glucose (mg/dL) 227 H 216 H 298 H (70-110) mg/dL 09/17/24 Range/Units 05:58 POC Glucose (mg/dL) 307 H (70-110) mg/dL
[2024-09-18] MEDS ORDERED: METOPROLOL TARTRATE 12.5 MG TAB PO SCH (09:00)
--- NOTE | 2024-09-19 16:36 | P.DS ---
Providers Date of admission: 09/13/24 16:46 Expected date of discharge: 09/16/24 Attending physician: Shlomo Jolly MD Consults: 09/13/24 16:46 Consult Physician Urgent Consulting Provider: Chevy Laurent Consult Reason/Comments: nausea, elevated troponin Do you want consulting provider notified?: Yes 09/14/24 10:45 Consult Physician Urgent Consulting Provider: Vikas Conn Consult Reason/Comments: left ankle and foot pain Do you want consulting provider notified?: Yes [facility] Course: Final diagnosis Diabetes mellitus, type II uncontrolled with hyperglycemia and hyperosmolar state, no evidence of DKA on admission Generalized aches and pains with left ankle pain, no fractures noted, sprain per orthopedics Troponin elevated at 0.564, acute NSTEMI and status post cardiac catheterization recommending maximizing medical management Hypertension Hyperlipidemia Obesity with a BMI 34.0 GI prophylaxis DVT prophylaxis Full code Discharge disposition Patient is being discharged in a stable condition with guarded prognosis to home. Patient will follow-up with Dr. Aravind Lundberg in the outpatient setting upon discharge. Patient is to continue with current medications and close outpatient follow-up with cardiology as well as orthopedics as scheduled. Total time taken is greater than 35 minutes. Hospital course This is a 54-year-old female who was recently admitted with chest pain, hyperglycemia as well as left ankle pain being closely monitored with cardiology. Patient had elevated troponins and started on heparin underwent cardiac catheterization recommending maximizing medical management with no stenting at this time. Patient monitored overnight on continued telemetry with adjustments to medications recommending close outpatient follow-up. Patient also evaluated by orthopedics recommending a boot for the ankle sprain and outpatient follow-up with orthopedics. Patient's blood sugars are controlled currently and will continue current regimen. Patient does have a guardian in the outpatient setting and has been cleared by consultations. Please refer to consultation notes for further HPI. Currently no reports of chest pain, shortness of breath, or palpitations. Patient is afebrile. No reports of nausea or vomiting and patient is tolerating diet. Patient will be discharged home today. Guarded prognosis and high risk for readmissions as patient has significant comorbidities, extreme noncompliance with diet and medications. Physical exam: Gen: This is a 54-year-old female who is awake, alert and oriented x 2, well- developed, elderly appearing, obese HEENT: Head is atraumatic, normocephalic. Pupils equal, round. Sclerae is anicteric. NECK: Supple. No JVD. No lymphadenopathy. No thyromegaly. LUNGS: Diminished breath sounds bilaterally otherwise clear to auscultation. No wheezes or rhonchi. No intercostal retractions. HEART: S1, S2 are muffled ABDOMEN: Soft. Obese bowel sounds are present. No masses. No tenderness. EXTREMITIES: No pedal edema. No calf tenderness. Left ankle tenderness on palpation with no obvious deformities noted NEUROLOGICAL: Patient is awake, alert and oriented x to, baseline. Cranial nerves 2 through 12 are grossly intact. Please refer to medication reconciliation sheet for a list of medications. The impression and plan of care has been dictated by Shalini Ramirez, Nurse Practitioner as directed. Dr. Toño MD I have performed a history and examination and MDM of this patient, discussed the same with the dictator, and agree with the dictator's assessment and plan as written ,documented as a scribe. Based on total visit time, I have performed more than 50% of the visit. Patient Condition at Discharge: Fair Plan - Discharge Summary New Discharge Prescriptions: New Aspirin 81 mg PO DAILY #30 tab Losartan [Cozaar] 25 mg PO DAILY #30 tab Metoprolol Tartrate [Lopressor] 12.5 mg PO DAILY #30 tab Continue Atorvastatin [Lipitor] 80 mg PO HS Famotidine [Pepcid] 20 mg PO DAILY #20 tablet Insulin Aspart [NovoLOG Flexpen] 20 units SQ AC-TID Insulin Glargine,Hum.rec.anlog [Basaglar Kwikpen U-100] 35 unit SQ HS Discontinued hydrALAZINE HCL [Apresoline] 25 mg PO BID #60 tab Discharge Medication List Atorvastatin [Lipitor] 80 mg PO HS 06/25/19 [History] Famotidine [Pepcid] 20 mg PO DAILY #20 tablet 04/18/24 [Rx] Insulin Aspart [NovoLOG Flexpen] 20 units SQ AC-TID 09/13/24 [History] Insulin Glargine,Hum.rec.anlog [Basaglar Kwikpen U-100] 35 unit SQ HS 09/13/24 [History] Aspirin 81 mg PO DAILY #30 tab 09/16/24 [Rx] Losartan [Cozaar] 25 mg PO DAILY #30 tab 09/16/24 [Rx] Metoprolol Tartrate [Lopressor] 12.5 mg PO DAILY #30 tab 09/17/24 [Rx] Follow up Appointment(s)/Referral(s): Perry Peace DO [STAFF PHYSICIAN] - 09/24/24 2:30 pm (Appointment with Phoebe RICARDO.) Eusebio Shaw DPM [Doctor of Osteopathic Medicine] - 09/24/24 8:30 am (Bring current ID and insurance card.) Ronel Manzano MD [Primary Care Provider] - 1-2 days (The office will call you with appointment.) Patient Instructions/Handouts: After Radial Heart Catheterization (GEN) Activity/Diet/Wound Care/Special Instructions: Per Public Guardian patient is to either walk home or use the bus. Activity limited until follow-up Follow-up with primary care provider Follow-up with cardiology outpatient Follow-up with orthopedic surgeon outpatient Continue taking medications as prescribed Continue monitoring blood sugars closely and keep a diary of all readings for follow-up Continue heart healthy diabetic diet Discharge/Stand Alone Forms: Who Do I Call? Discharge Disposition: HOME SELF-CARE
== END 2024-09-17 11:37 | disposition home or self-care (01) | DRG 282 ==
LOC: EC 15:10 → 3SCARD 16:46
PROVIDERS: ADMIT Internal Medicine; ATTEND Internal Medicine
PROC: B2111ZZ Fluoroscopy of Multiple Coronary Arteries using Low Osmolar Contrast (ICD-10-PCS; principal; 2024-09-16 12:00)
PROC: 4A023N7 Measurement of Cardiac Sampling and Pressure, Left Heart, Percutaneous Approach (ICD-10-PCS; principal; 2024-09-16 12:00)
DX: I21.4 Non-ST elevation (NSTEMI) myocardial infarction (principal); E11.65 Type 2 diabetes mellitus with hyperglycemia; E66.9 Obesity, unspecified; I10 Essential (primary) hypertension; I08.1 Rheumatic disorders of both mitral and tricuspid valves; Z79.4 Long term (current) use of insulin; E78.1 Pure hyperglyceridemia; I25.10 Atherosclerotic heart disease of native coronary artery without angina pectoris; M19.079 Primary osteoarthritis, unspecified ankle and foot; S93.402A Sprain of unspecified ligament of left ankle, initial encounter; Z68.35 Body mass index [BMI] 35.0-35.9, adult; Z77.22 Contact with and (suspected) exposure to environmental tobacco smoke (acute) (chronic); Z79.899 Other long term (current) drug therapy; Z86.14 Personal history of Methicillin resistant Staphylococcus aureus infection; Z87.74 Personal history of (corrected) congenital malformations of heart and circulatory system; Z87.891 Personal history of nicotine dependence; Z91.119 Patient's noncompliance with dietary regimen due to unspecified reason; Z91.148 Patient's other noncompliance with medication regimen for other reason; Z87.440 Personal history of urinary (tract) infections; Z88.1 Allergy status to other antibiotic agents
CPT/HCPCS: 36415; 71046; 80048; 80053; 80061; 81003; 82009; 83036; 83721; 83735; 84484; 85025; 85610; 85730; 93005; 93306; 96365; 96366; 96375; 99291

== ENCOUNTER 2024-09-18 17:53 | Emergency (ER) | payer MEDICARE, OTHER ==
--- NOTE | 2024-09-18 19:52 | ED ---
General Adult HPI - General Chief complaint: Recheck/Abnormal Lab/Rx Stated complaint: Pain All Over Time Seen by Provider: 09/18/24 18:15 Source: patient Mode of arrival: EMS Limitations: no limitations - History of Present Illness Initial comments: 54-year-old female who is well-known to the emergency department presents today stating that she does not feel well. Patient has been seen in the emergency department several times for the same complaint. Patient states that she does not feel well and has pain all over. She denies chest pain or shortness of breath. No abdominal pain. States she has been taking her medications however patient found to be hyperglycemic. She denies fevers. No other alleviating, precipitating or modifying factors - Related Data Home Medications Medication Instructions Recorded Confirmed Atorvastatin [Lipitor] 80 mg PO HS 06/25/19 09/13/24 Insulin Aspart [NovoLOG Flexpen] 20 units SQ AC-TID 09/13/24 09/13/24 Insulin Glargine,Hum.rec.anlog 35 unit SQ HS 09/13/24 09/13/24 [Basaglar Kwikpen U-100] Previous Rx's Medication Instructions Recorded Famotidine [Pepcid] 20 mg PO DAILY #20 tablet 04/18/24 Aspirin 81 mg PO DAILY #30 tab 09/16/24 Losartan [Cozaar] 25 mg PO DAILY #30 tab 09/16/24 Metoprolol Tartrate [Lopressor] 12.5 mg PO DAILY #30 tab 09/17/24 Allergies Allergy/AdvReac Type Severity Reaction Status Date / Time levofloxacin [From Levaquin] Allergy Rash/Hives Verified 09/25/24 02:50 Review of Systems ROS Statement: Those systems with pertinent positive or pertinent negative responses have been documented in the HPI. ROS Other: All systems not noted in ROS Statement are negative. Past Medical History Past Medical History: Diabetes Mellitus, GERD/Reflux, Hyperlipidemia, Hypertension, Syncope Additional Past Medical History / Comment(s): Pt recently admitted to [facility] on 07/21/21 with uncontrolled IDDM and hyperkalemia. Other hx: Recurrent pancreatitis, hypertriglyceridemia, elevated lipase, IDDM type II, UTI, chronic low back pain, bulging discs, dental abscesses in past. History of Any Multi-Drug Resistant Organisms: MRSA Date of last positivie culture/infection: 03/01/23 MDRO Source:: Abdomen Past Surgical History: Tubal Ligation Additional Past Surgical History / Comment(s): Age 7 had VSD repair, tumor removal 03/2023 Past Anesthesia/Blood Transfusion Reactions: No Reported Reaction Past Psychological History: No Psychological Hx Reported Smoking Status: Former smoker, Second hand smoke exposure, Vaper Past Alcohol Use History: None Reported Past Drug Use History: None Reported - Past Family History Mother Family Medical History: No Reported History Additional Family Medical History / Comment(s): Mother was healthy. She is , pt cannot recall cause of . Father Family Medical History: Pneumonia Additional Family Medical History / Comment(s): Father at the age of 67yrs from pneumonia General Exam Limitations: no limitations General appearance: alert, in no apparent distress Head exam: Present: atraumatic, normocephalic, normal inspection Eye exam: Present: normal appearance, PERRL, EOMI. Absent: scleral icterus, conjunctival injection, periorbital swelling ENT exam: Present: normal exam, mucous membranes moist Neck exam: Present: normal inspection. Absent: tenderness, meningismus, lymphadenopathy Respiratory exam: Present: normal lung sounds bilaterally. Absent: respiratory distress, wheezes, rales, rhonchi, stridor Cardiovascular Exam: Present: regular rate, normal rhythm, normal heart sounds. Absent: systolic murmur, diastolic murmur, rubs, gallop, clicks GI/Abdominal exam: Present: soft, normal bowel sounds. Absent: distended, tenderness, guarding, rebound, rigid Extremities exam: Present: normal inspection, full ROM, normal capillary refill. Absent: tenderness, pedal edema, joint swelling, calf tenderness Back exam: Present: normal inspection Neurological exam: Present: alert, oriented X3, CN II-XII intact Psychiatric exam: Present: normal affect, normal mood Skin exam: Present: warm, dry, intact, normal color. Absent: rash Course Vital Signs 09/18/24 09/18/24 09/18/24 18:12 21:25 23:22 Temperature 98 F 98.6 F 98.9 F Pulse Rate 76 77 67 Respiratory 20 20 19 Rate Blood Pressure 143/83 150/94 157/84 O2 Sat by Pulse 99 96 98 Oximetry Medical Decision Making - Medical Decision Making Was pt. sent in by a medical professional or institution (, PA, NATIONAL FLATBED TRUCK DRIVER, urgent care, hospital, or alf...) When possible be specific @ -No Did you speak to anyone other than the patient for history (EMS, parent, family, police, friend...)? What history was obtained from this source @ -Spoke with EMS for history Did you review nursing and triage notes (agree or disagree)? Why? @ -I reviewed and agree with nursing and triage notes Were old charts reviewed (outside hosp., previous admission, EMS record, old EKG, old radiological studies, urgent care reports/EKG's, alf records)? Report findings @ -No old charts were reviewed Differential Diagnosis (chest pain, altered mental status, abdominal pain women, abdominal pain men, vaginal bleeding, weakness, fever, dyspnea, syncope, headache, dizziness, GI bleed, back pain, seizure, CVA, palpatations, mental health, musculoskeletal)? @ -Differential Weakness: Hypoglycemia, shock, sepsis, hyponatremia, anemia, infection, GA, ETOH, adverse medicine reaction, overdose, stroke, this is not meant to be an all-inclusive list. EKG interpreted by me (3pts min.). @ -Yes and demonstrates sinus rhythm with a rate of 71. Parable 129. QRS 85. QTc of 399. No acute ST segment elevations or depressions X-rays interpreted by me (1pt min.). @ -None done CT interpreted by me (1pt min.). @ -None done U/S interpreted by me (1pt. min.). @ -None done What testing was considered but not performed or refused? (CT, X-rays, U/S, la bs)? Why? @ -None What meds were considered but not given or refused? Why? @ -None Did you discuss the management of the patient with other professionals (professionals i.e. , PA, NATIONAL FLATBED TRUCK DRIVER, lab, RT, psych nurse, hospice social worker, post doctoral fellow, teacher, executive officer special warfare team, case technician)? Give summary @ -No Was smoking cessation discussed for >3mins.? @ -No Was critical care preformed (if so, how long)? @ -No Were there social determinants of health that impacted care today? How? (Homelessness, low income, unemployed, alcoholism, drug addiction, transportation, low edu. Level, literacy, decrease access to med. care, skilled nursing, rehab)? @ -No Was there de-escalation of care discussed even if they declined (Discuss DNR or withdrawal of care, Hospice)? DNR status @ -No What co-morbidities impacted this encounter? (DM, HTN, Smoking, COPD, CAD, Cancer, CVA, ARF, Chemo, Hep., AIDS, mental health diagnosis, sleep apnea, morbid obesity)? @ -Diabetes mellitus with noncompliance Was patient admitted / discharged? Hospital course, mention meds given and route, prescriptions, significant lab abnormalities, going to OR and other pertinent info. @ -Upon arrival patient seen and evaluated in hallway 20. Thorough history and physical exam was performed. Laboratory studies are conducted which demonstrate elevated glucose without signs of DKA. Patient is given 30 units of insulin with improvement in her glucose. Patient be discharged home. Highly stressed medical compliance with her medications. Instructed her to return for any new or worsening symptoms Undiagnosed new problem with uncertain prognosis? @ -No Drug Therapy requiring intensive monitoring for toxicity (Heparin, Nitro, Insulin, Cardizem)? @ -No Were any procedures done? @ -No Diagnosis/symptom? @ -Chronic myalgias, chronic hyperglycemia Acute, or Chronic, or Acute on Chronic? @ -Chronic Uncomplicated (without systemic symptoms) or Complicated (systemic symptoms)? @ -Complicated Side effects of treatment? @ -No Exacerbation, Progression, or Severe Exacerbation? @ -No Poses a threat to life or bodily function? How? (Chest pain, USA, GA, pneumonia, PE, COPD, DKA, ARF, appy, cholecystitis, CVA, Diverticulitis, Homicidal, S uicidal, threat to staff... and all critical care pts) @ -No - Lab Data Result diagrams: 09/18/24 21:37 09/18/24 21:37 Lab Results 09/18/24 09/18/24 09/18/24 Range/Units 20:24 21:37 21:37 WBC 11.24 H (4.50-10.00) 10*3/uL RBC 4.73 (4.10-5.20) 10*6/uL Hgb 12.8 (12.0-15.0) g/dL Hct 38.4 (37.2-46.3) % MCV 81.2 (80.0-97.0) fL MCH 27.1 (27.0-32.0) pg MCHC 33.3 (32.0-37.0) g/dL Plt Count 455 H (140-440) 10*3/uL MPV 9.3 L (9.5-12.2) fL Immature Gran % (Auto) 0.4 % Neutrophils % 62.8 % Lymphocytes % 29.4 % Monocytes % 5.4 % Eosinophils % 1.5 % Basophils % 0.5 % Immature Gran # 0.05 H (0.00-0.04) 10*3/uL Neutrophils # 7.05 (1.80-7.70) 10*3/uL Lymphocytes # 3.30 (0.90-5.00) 10*3/uL Monocytes # 0.61 (0.20-1.00) 10*3/uL Eosinophils # 0.17 (0.04-0.35) 10*3/uL Basophils # 0.06 (0.00-0.10) 10*3/uL Sodium 131 L (137-145) mmol/L Potassium 4.6 (3.5-5.1) mmol/L Chloride 96 L (98-107) mmol/L Carbon Dioxide 19 L (22-30) mmol/L Anion Gap 16 mmol/L BUN 12 (7-17) mg/dL Creatinine 0.60 (0.52-1.04) mg/dL Est GFR (CKD-EPI)AfAm >90 (>60 ml/min/1.73 sqM) Est GFR (CKD-EPI)NonAf >90 (>60 ml/min/1.73 sqM) Glucose 575 H* (74-99) mg/dL POC Glucose (mg/dL) (70-110) mg/dL POC Glu [employer] Faculty Member ID Calcium 9.1 (8.4-10.2) mg/dL Total Bilirubin 0.5 (0.2-1.3) mg/dL AST 33 (14-36) U/L ALT 29 (4-34) U/L Alkaline Phosphatase 140 H (38-126) U/L Total Protein 6.6 (6.3-8.2) g/dL Albumin 3.8 (3.5-5.0) g/dL Urine Color Colorless Urine Appearance Clear (Clear) Urine pH 6.0 (5.0-8.0) Ur Specific [place] 1.023 (1.001-1.035) Urine Protein Trace H (Negative) Urine Glucose (UA) 4+ H (Negative) Urine Ketones Negative (Negative) Urine Blood Negative (Negative) Urine Nitrite Negative (Negative) Urine Bilirubin Negative (Negative) Urine Urobilinogen <2.0 (<2.0) mg/dL Ur Leukocyte Esterase Negative (Negative) 09/18/24 09/18/24 09/18/24 Range/Units 22:43 22:44 23:16 WBC (4.50-10.00) 10*3/uL RBC (4.10-5.20) 10*6/uL Hgb (12.0-15.0) g/dL Hct (37.2-46.3) % MCV (80.0-97.0) fL MCH (27.0-32.0) pg MCHC (32.0-37.0) g/dL Plt Count (140-440) 10*3/uL MPV (9.5-12.2) fL Immature Gran % (Auto) % Neutrophils % % Lymphocytes % % Monocytes % % Eosinophils % % Basophils % % Immature Gran # (0.00-0.04) 10*3/uL Neutrophils # (1.80-7.70) 10*3/uL Lymphocytes # (0.90-5.00) 10*3/uL Monocytes # (0.20-1.00) 10*3/uL Eosinophils # (0.04-0.35) 10*3/uL Basophils # (0.00-0.10) 10*3/uL Sodium (137-145) mmol/L Potassium (3.5-5.1) mmol/L Chloride (98-107) mmol/L Carbon Dioxide (22-30) mmol/L Anion Gap mmol/L BUN (7-17) mg/dL Creatinine (0.52-1.04) mg/dL Est GFR (CKD-EPI)AfAm (>60 ml/min/1.73 sqM) Est GFR (CKD-EPI)NonAf (>60 ml/min/1.73 sqM) Glucose (74-99) mg/dL POC Glucose (mg/dL) 517 H* 504 H* 452 H (70-110) mg/dL POC Glu [employer] Faculty Member BELINDA [place]valles Calcium (8.4-10.2) mg/dL Total Bilirubin (0.2-1.3) mg/dL AST (14-36) U/L ALT (4-34) U/L Alkaline Phosphatase (38-126) U/L Total Protein (6.3-8.2) g/dL Albumin (3.5-5.0) g/dL Urine Color Urine Appearance (Clear) Urine pH (5.0-8.0) Ur Specific [place] (1.001-1.035) Urine Protein (Negative) Urine Glucose (UA) (Negative) Urine Ketones (Negative) Urine Blood (Negative) Urine Nitrite (Negative) Urine Bilirubin (Negative) Urine Urobilinogen (<2.0) mg/dL Ur Leukocyte Esterase (Negative) Disposition Clinical Impression: Hyperglycemia Disposition: HOME SELF-CARE Condition: Stable Instructions (If sedation given, give patient instructions): Diabetic Hyperglycemia (ED) Additional Instructions: You need to start taking your insulin as this is probably a very good reason as to why you do not feel well. Follow-up with your doctor. Return for any new or worsening symptoms Is patient prescribed a controlled substance at d/c from ED?: No Referrals: Ronel Manzano MD [Primary Care Provider] - 1-2 days Time of Disposition: 22:57
[2024-09-18 20:36] LABS: Appearance,Urine Clear (Clear); Bilirubin,Urine Negative (Negative); Blood,Urine Negative (Negative); Color,Urine Colorless; Glucose,Urine (UA) 4+ (Negative); Ketones,Urine Negative (Negative); Leukocyte Esterase,Urine Negative (Negative); Nitrite,Urine Negative (Negative); Protein,Urine Trace (Negative); Specific Gravity,Urine 1.023 (1.001-1.035); Urobilinogen,Urine <2.0 mg/dL (<2.0)
--- NOTE | 2024-09-18 20:58 | XR ---
EXAMINATION TYPE: XR chest 2V DATE OF EXAM: 09/18/2024 8:42 PM COMPARISON: Chest radiographs from 09/13/2024 CLINICAL INDICATION: Female, 54 years old with history of Cough/pain; [facility] TECHNIQUE: XR chest 2V Frontal and lateral views of the chest. FINDINGS: Lungs/Pleura: There is no evidence of pleural effusion, focal consolidation, or pneumothorax. Pulmonary vascularity: Unremarkable. Heart/mediastinum: Cardiomediastinal silhouette is unremarkable. Musculoskeletal: No acute osseous pathology. IMPRESSION: No acute cardiopulmonary disease/process. [facility], , 09/18/2024 8:56 PM
[2024-09-18 22:03] LABS: Basophils # (A) 0.06 10*3/uL (0.00-0.10); Basophils % (A) 0.5 %; Eosinophils # (A) 0.17 10*3/uL (0.04-0.35); Eosinophils % (A) 1.5 %; HCT 38.4 % (37.2-46.3); HGB 12.8 g/dL (12.0-15.0); Lymphocytes % (A) 29.4 %; MCH 27.1 pg (27.0-32.0); MCHC 33.3 g/dL (32.0-37.0); MCV 81.2 fL (80.0-97.0); Mean Platelet Volume 9.3 fL (9.5-12.2); Monocytes # (A) 0.61 10*3/uL (0.20-1.00); Monocytes % (A) 5.4 %; Neutrophils # (A) 7.05 10*3/uL (1.80-7.70); Neutrophils % (A) 62.8 %; Platelet Count 455 10*3/uL (140-440); RBC 4.73 10*6/uL (4.10-5.20); RDW 15.9 % (11.5-14.5); WBC 11.24 10*3/uL (4.50-10.00)
[2024-09-18 22:21] LABS: ALT 29 U/L (4-34); AST 33 U/L (14-36); African American GFR (CKD) >90 (>60 ml/min/1.73 sqM); Albumin 3.8 g/dL (3.5-5.0); Alkaline Phosphatase 140 U/L (38-126); Anion Gap 16 mmol/L; Blood Urea Nitrogen 12 mg/dL (7-17); Calcium 9.1 mg/dL (8.4-10.2); Carbon Dioxide 19 mmol/L (22-30); Chloride 96 mmol/L (98-107); Non-African American GFR(CKD) >90 (>60 ml/min/1.73 sqM); Potassium 4.6 mmol/L (3.5-5.1); Sodium 131 mmol/L (137-145); Total Bilirubin 0.5 mg/dL (0.2-1.3); Total Protein 6.6 g/dL (6.3-8.2)
[2024-09-18 22:27] LABS: Glucose 575 mg/dL (74-99)
[2024-09-18 22:47] LABS: Glucose,Whole Blood 504 mg/dL (70-110)
[2024-09-18 22:47] LABS: Glucose,Whole Blood 517 mg/dL (70-110)
[2024-09-18] MEDS: INSULIN REGULAR 100 UNIT/ML VIAL (IM/SQ) SQ ONE (22:48)
[2024-09-18 23:18] LABS: Glucose,Whole Blood 452 mg/dL (70-110)
[2024-09-18 23:28] VITALS: BP 157/84; PULSE 67; RESP 19; TEMP 98.9
== END 2024-09-18 23:33 | disposition home or self-care (01) ==
LOC: EC 17:53
DX: E11.65 Type 2 diabetes mellitus with hyperglycemia (principal); F17.290 Nicotine dependence, other tobacco product, uncomplicated; Z88.1 Allergy status to other antibiotic agents
CPT/HCPCS: 36415; 71046; 80053; 81003; 85025; 93005; 99285

== ENCOUNTER 2024-09-25 02:44 | Emergency (ER) | payer MEDICARE, OTHER ==
[2024-09-25 02:50] VITALS: BP 154/78; PULSE 69; RESP 16; TEMP 98.4
--- NOTE | 2024-09-25 02:54 | ED ---
General Adult HPI - General Chief complaint: Upper Respiratory Infection Stated complaint: Sugar Issues Time Seen by Provider: 09/25/24 02:52 Source: patient Mode of arrival: EMS Limitations: no limitations - History of Present Illness Initial comments: Patient is a 54 y/o female PMH DM presenting today for multiple complaints, chief of which is nasal congestion and cough. Also endorses associated body aches, nausea and chronic left ankle pain. 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 Body pain, nausea and ankle pain are chronic issues for the patient. Denies episodes of emesis, abdominal pain or diarrhea. Denies chest pain, shortness of breath or fevers. Cough is nonproductive of sputum or hemoptysis. - Related Data Home Medications Medication Instructions Recorded Confirmed Atorvastatin [Lipitor] 80 mg PO HS 06/25/19 09/13/24 Insulin Aspart [NovoLOG Flexpen] 20 units SQ AC-TID 09/13/24 09/13/24 Insulin Glargine,Hum.rec.anlog 35 unit SQ HS 09/13/24 09/13/24 [Basaglar Kwikpen U-100] Previous Rx's Medication Instructions Recorded Famotidine [Pepcid] 20 mg PO DAILY #20 tablet 04/18/24 Aspirin 81 mg PO DAILY #30 tab 09/16/24 Losartan [Cozaar] 25 mg PO DAILY #30 tab 09/16/24 Metoprolol Tartrate [Lopressor] 12.5 mg PO DAILY #30 tab 09/17/24 Allergies Allergy/AdvReac Type Severity Reaction Status Date / Time levofloxacin [From Levaquin] Allergy Rash/Hives Verified 09/29/24 08:09 Review of Systems ROS Statement: Those systems with pertinent positive or pertinent negative responses have been documented in the HPI. ROS Other: All systems not noted in ROS Statement are negative. Past Medical History Past Medical History: Diabetes Mellitus, GERD/Reflux, Hyperlipidemia, Hypertension, Syncope Additional Past Medical History / Comment(s): Pt recently admitted to [facility] on 07/21/21 with uncontrolled IDDM and hyperkalemia. Other hx: Recurrent pancreatitis, hypertriglyceridemia, elevated lipase, IDDM type II, UTI, chronic low back pain, bulging discs, dental abscesses in past. History of Any Multi-Drug Resistant Organisms: MRSA Date of last positivie culture/infection: 03/01/23 MDRO Source:: Abdomen Past Surgical History: Tubal Ligation Additional Past Surgical History / Comment(s): Age 7 had VSD repair, tumor removal 03/2023 Past Anesthesia/Blood Transfusion Reactions: No Reported Reaction Past Psychological History: No Psychological Hx Reported Smoking Status: Former smoker, Second hand smoke exposure, Vaper Past Alcohol Use History: None Reported Past Drug Use History: None Reported - Past Family History Mother Family Medical History: No Reported History Additional Family Medical History / Comment(s): Mother was healthy. She is , pt cannot recall cause of . Father Family Medical History: Pneumonia Additional Family Medical History / Comment(s): Father at the age of 67yrs from pneumonia General Exam - General Exam Comments Initial Comments: PE: CONSTITUTIONAL: No apparent distress, well appearing SKIN: Warm, dry, no jaundice, hives or petechiae EYES: Pupils are equally round, extraocular movements intact without nystagmus, clear conjunctiva, non-icteric sclera HENT: Normocephalic, atraumatic, moist mucus membranes, oropharynx clear without exudates NECK: , Full range of motion, normal appearance PULMONARY: Clear to auscultation without wheezes, rhonchi, or rales, normal excursion, no accessory muscle use and no stridor CARDIOVASCULAR: Regular rate, rhythm, normal S1 and S2. No appreciated murmurs, rubs or gallops. Strong radial pulses with intact distal perfusion. No lower extremity edema GASTROINTESTINAL: Soft, active bowel sounds throughout, non-tender, non- distended, no palpable masses, no rebound or guarding. No hepatosplenomegaly GENITOURINARY: MUSCULOSKELETAL: Extremities have no gross deformity, no edema, redness, or swelling. No calf swelling . Left ankle is atraumatic without swelling. NEUROLOGIC:_a/o x 3, GCS 15, normal mentation and speech. Moves all extremities x 4 without motor or sensory deficit PSYCHIATRIC:_normal mood and affect, thought process is clear and linear Limitations: no limitations Course Vital Signs 09/25/24 02:48 Temperature 98.4 F Pulse Rate 69 Respiratory 16 Rate Blood Pressure 154/78 O2 Sat by Pulse 95 Oximetry Medical Decision Making - Medical Decision Making Was pt. sent in by a medical professional or institution (, PA, CINDER BLOCK MASON, urgent care, hospital, or [facility]...) When possible be specific @ -No Did you speak to anyone other than the patient for history (EMS, parent, family, police, friend...)? What history was obtained from this source @ -No Did you review nursing and triage notes (agree or disagree)? Why? @ -I reviewed and agree with nursing and triage notes Were old charts reviewed (outside hosp., previous admission, EMS record, old EKG, old radiological studies, urgent care reports/EKG's, [facility] records)? Report findings @ -Medical records reviewed*patient is well-known to this emergency department, presenting at least weekly if not more frequently for various chronic complaints, last time was seen in the ER was on 09/18/2024 on review of this note, reports that patient was seen for "not feeling well" and "pain all over". Labs did not show signs of DKA. Patient was discharged home and encouraged to be compliant with her medications. Differential Diagnosis (chest pain, altered mental status, abdominal pain women, abdominal pain men, vaginal bleeding, weakness, fever, dyspnea, syncope, headache, dizziness, GI bleed, back pain, seizure, CVA, palpatations, mental health, musculoskeletal)? @Differential diagnosis remains broad however top considerations include chronic pain, URI, pneumonia, sinus infection, malingering this is not an all-inclusive list EKG interpreted by me (3pts min.). @ -As above X-rays interpreted by me (1pt min.). @ -I recently reviewed patient's chest x-ray and see no evidence of consolidations I agree with radiologist interpretation CT interpreted by me (1pt min.). @ -None done U/S interpreted by me (1pt. min.). @ -None done What testing was considered but not performed or refused? (CT, X-rays, U/S, labs)? Why? @ -None What meds were considered but not given or refused? Why? @ -None Did you discuss the management of the patient with other professionals (professionals i.e. , PA, CINDER BLOCK MASON, lab, RT, psych nurse, medical social worker, skein yarn dyer, teacher, juvenile corrections officer, employment evaluator/case manager)? Give summary @ -No Was smoking cessation discussed for >3mins.? @ -No Was critical care preformed (if so, how long)? @ -No Were there social determinants of health that impacted care today? How? (Homelessness, low income, unemployed, alcoholism, drug addiction, transportation, low edu. Level, literacy, decrease access to med. care, retirement, re hab)? @ -No Was there de-escalation of care discussed even if they declined (Discuss DNR or withdrawal of care, Hospice)? @ -No What co-morbidities impacted this encounter? (DM, HTN, Smoking, COPD, CAD, Cancer, CVA, ARF, Chemo, Hep., AIDS, mental health diagnosis, sleep apnea, morbid obesity)? @Diabetes Was patient admitted / discharged? Hospital course, mention meds given and route, prescriptions, significant lab abnormalities, going to OR and other pertinent info. @Discharged -patient is a 54-year-old female well known to emergency department history of diabetes presenting today for cough and congestion as well as body aches. Will obtain chest x-ray, , Cepheid testing administer Tylenol, ibuprofen and Mucinex. Patient agreeable with plan. Pt requested a diet pepside which was provided to her. Of note on my reassessment patient was walking around her room, taking handfuls of sanitary wipes and putting them in a baggy so she could take them home with her to use to clean her phone and her keys. I did discuss with her that those wipse were for hospital use and should not be touched with bare hands and advised her to throw them away and to please not take them from the hospital. Otherwise chest x-ray is clear for signs of consolidations. Patient is resting comfortably. She is able to tolerate p.o. intake. Discussed plan for discharge home and symptomatic care as well as signs and symptoms to monitor for warranting return to the hospital. Pt understanding and agreeable with POC. Undiagnosed new problem with uncertain prognosis? @ -No Drug Therapy requiring intensive monitoring for toxicity (Heparin, Nitro, Insulin, Cardizem)? @ -No Were any procedures done? @ -No Diagnosis/symptom? @Upper respiratory infection Acute, or Chronic, or Acute on Chronic? @ acute Uncomplicated (without systemic symptoms) or Complicated (systemic symptoms)? @uncomplicated Side effects of treatment? @ -No Exacerbation, Progression, or Severe Exacerbation? @ -No Poses a threat to life or bodily function? How? (Chest pain, USA, [place], pneumonia, PE, COPD, DKA, ARF, appy, cholecystitis, CVA, Diverticulitis, Homicidal, Suicidal, threat to staff... and all critical care pts) @ -No - Lab Data Lab Results 09/25/24 Range/Units 03:11 Influenza Type A (PCR) Not Detected (Not Detectd) Influenza Type B (PCR) Not Detected (Not Detectd) RSV (PCR) Not Detected (Not Detectd) SARS-CoV-2 (PCR) Not Detected (Not Detectd) Disposition Clinical Impression: Upper respiratory infection Disposition: HOME SELF-CARE Condition: Good Instructions (If sedation given, give patient instructions): Upper Respiratory Infection (ED) Additional Instructions: Every disease is a spectrum and a small chance still exists that a serious condition could develop, for this reason, please monitor yourself closely for new, changing or worsening symptoms, symptoms that do not improve over the course of the next 48 hours, any fevers, coughing up thick sputum or blood, inability to tolerate/keep down fluids or your medications, inability to follow up with outpatient providers as instructed and should you experience these symptoms or should you have any further concerns for your wellbeing please return to the ED or call 911 immediately. Your pain can be treated with ibuprofen and acetaminophen. You can take up to 400-600 mg of ibuprofen (Advil, Motrin) 3 times daily (every 8 hours) but can also use lower doses if this relieves your pain. Some people prefer naproxen (Aleve, Naprosyn) which can be taken in doses of 500 mg up to twice a day. Do not take both of these medicines together, and do not combine either with ketorolac (Toradol), meloxicam (Mobic), or indomethacin (Tivorbex). Some people can develop stomach discomfort with higher doses of either ibuprofen or naproxen, if this develops decrease your dose or stop taking it. If you need to take this dose daily for more than a week, please schedule an appointment for re-evaluation with your PCP. Please take these medications with food. You can take up to 1000 mg of acetaminophen (Tylenol) every 6 hours. Be careful as this is included in some medicines like Nyquil, [place], Percocet, Vicodin, STANBACK, Goody's Powders, and Excedrin. You can also use lidocaine patches for topical pain. You can purchase 4% patches over the counter at most drug stores. These can be helpful for pain from your muscles or bones. PLEASE call your primary care physician as soon as possible to arrange / discuss plan for followup appointment. Appointment in the next 1-3 days is strongly encouraged if possible. PLEASE let us know here before you leave if there is anything further we can do to be of any assistance. Take care and feel Better! Is patient prescribed a controlled substance at d/c from ED?: No Referrals: Ronel Manzano MD [Primary Care Provider] - 1-2 days
[2024-09-25 04:04] LABS: Influenza A Not Detected (Not Detectd); Influenza B Not Detected (Not Detectd); RSV Not Detected (Not Detectd)
[2024-09-25] MEDS: ACETAMINOPHEN TAB 500 MG TAB PO STA (04:04)
[2024-09-25] MEDS: guaiFENesin-DM 600/30MG 1 EACH TAB.ER.12H PO STA (04:04)
[2024-09-25] MEDS: IBUPROFEN 600 MG TAB PO STA (04:05)
--- NOTE | 2024-09-25 05:10 | XR ---
EXAM: XR Chest, 2 Views CLINICAL HISTORY: ITS.REASON XR Reason: Difficulty breathing TECHNIQUE: Frontal and lateral views of the chest. COMPARISON: X-ray dated 09/18/2024. FINDINGS: Lungs: Unremarkable. No consolidation. Pleural space: Unremarkable. No pneumothorax. Heart: Unremarkable. No cardiomegaly. Mediastinum: Unremarkable. Normal mediastinal contour. Bones/joints: Degenerative changes are seen within the spine and shoulders. Sternotomy wires are in place. No acute fracture. IMPRESSION: No acute findings in the chest.
== END 2024-09-25 05:21 | disposition home or self-care (01) ==
LOC: EC 02:44
DX: J06.9 Acute upper respiratory infection, unspecified (principal); E11.9 Type 2 diabetes mellitus without complications; F17.290 Nicotine dependence, other tobacco product, uncomplicated; Z88.1 Allergy status to other antibiotic agents
CPT/HCPCS: 71046; 87636; 99283

== ENCOUNTER 2024-09-29 07:51 | Emergency (ER) | payer MEDICARE ==
[2024-09-29 08:49] LABS: Glucose,Whole Blood 496 mg/dL (70-110)
--- NOTE | 2024-09-29 08:53 | ED ---
General Adult HPI - General Chief complaint: Dizziness Stated complaint: Dizziness, pain all over Time Seen by Provider: 09/29/24 08:30 Source: patient, RN notes reviewed, old records reviewed Mode of arrival: EMS Limitations: no limitations - History of Present Illness Initial comments: 54-year-old female presenting with lightheadedness. Patient states she does not have air conditioning and the temperatures have been above 90 degrees the past several days. She states she has some mild associated nausea without vomiting. Denies chest pain. Denies focal numbness or weakness. Denies headache. - Related Data Home Medications Medication Instructions Recorded Confirmed Atorvastatin [Lipitor] 80 mg PO HS 06/25/19 09/13/24 Insulin Aspart [NovoLOG Flexpen] 20 units SQ AC-TID 09/13/24 09/13/24 Insulin Glargine,Hum.rec.anlog 35 unit SQ HS 09/13/24 09/13/24 [Basaglar Kwikpen U-100] Previous Rx's Medication Instructions Recorded Famotidine [Pepcid] 20 mg PO DAILY #20 tablet 04/18/24 Aspirin 81 mg PO DAILY #30 tab 09/16/24 Losartan [Cozaar] 25 mg PO DAILY #30 tab 09/16/24 Metoprolol Tartrate [Lopressor] 12.5 mg PO DAILY #30 tab 09/17/24 Allergies Allergy/AdvReac Type Severity Reaction Status Date / Time levofloxacin [From Levaquin] Allergy Rash/Hives Verified 09/29/24 08:09 Review of Systems ROS Statement: Those systems with pertinent positive or pertinent negative responses have been documented in the HPI. ROS Other: All systems not noted in ROS Statement are negative. Past Medical History Past Medical History: Diabetes Mellitus, GERD/Reflux, Hyperlipidemia, Hypertension, Syncope Additional Past Medical History / Comment(s): Pt recently admitted to [facility] on 07/21/21 with uncontrolled IDDM and hyperkalemia. Other hx: Recurrent pancreatitis, hypertriglyceridemia, elevated lipase, IDDM type II, UTI, chronic low back pain, bulging discs, dental abscesses in past. History of Any Multi-Drug Resistant Organisms: MRSA Date of last positivie culture/infection: 03/01/23 MDRO Source:: Abdomen Past Surgical History: Tubal Ligation Additional Past Surgical History / Comment(s): Age 7 had VSD repair, tumor removal 03/2023 Past Anesthesia/Blood Transfusion Reactions: No Reported Reaction Past Psychological History: No Psychological Hx Reported Smoking Status: Former smoker, Second hand smoke exposure, Vaper Past Alcohol Use History: None Reported Past Drug Use History: None Reported - Past Family History Mother Family Medical History: No Reported History Additional Family Medical History / Comment(s): Mother was healthy. She is , pt cannot recall cause of . Father Family Medical History: Pneumonia Additional Family Medical History / Comment(s): Father at the age of 67yrs from pneumonia General Exam Limitations: no limitations General appearance: alert, in no apparent distress Head exam: Present: atraumatic, normocephalic Eye exam: Present: normal appearance, PERRL ENT exam: Present: mucous membranes dry Neck exam: Present: normal inspection. Absent: tenderness, meningismus Respiratory exam: Present: normal lung sounds bilaterally. Absent: respiratory distress, wheezes Cardiovascular Exam: Present: regular rate, normal rhythm GI/Abdominal exam: Present: soft. Absent: distended, tenderness, guarding Extremities exam: Present: normal inspection, normal capillary refill Neurological exam: Present: alert, oriented X3, CN II-XII intact. Absent: motor sensory deficit Psychiatric exam: Present: normal affect, normal mood Skin exam: Present: warm, dry, intact Course Vital Signs 09/29/24 08:06 Temperature 98.4 F Pulse Rate 58 L Respiratory 22 Rate Blood Pressure 121/83 O2 Sat by Pulse 96 Oximetry Medical Decision Making - Medical Decision Making Was pt. sent in by a medical professional or institution (, PA, BUSINESS CONTINUITY MANAGEMENT DIRECTOR, urgent care, hospital, or [place] [facility] facility...) When possible be specific @ -No Did you speak to anyone other than the patient for history (EMS, parent, family, police, friend...)? What history was obtained from this source @ -No Did you review nursing and triage notes (agree or disagree)? Why? @ -I reviewed and agree with nursing and triage notes Were old charts reviewed (outside hosp., previous admission, EMS record, old EKG, old radiological studies, urgent care reports/EKG's, [place] [facility] facility records)? Report findings @ -No old charts were reviewed Differential Dizziness: Benign paroxysmal positional Vertigo, Meniere's disease, otitis media, acoustic neuroma, vertebrobasilar insufficiency, cerebellar stroke, encephalitis, hypovolemic, arrhythmia, coronary artery syndrome, anemia, this is not meant to be an all-inclusive list EKG interpreted by me (3pts min.). @ -Sinus rhythm rate of 62, MN interval 144, QRS duration 87, QTc [address] segment elevation. X-rays interpreted by me (1pt min.). @ -None done CT interpreted by me (1pt min.). @ -None done U/S interpreted by me (1pt. min.). @ -None done What testing was considered but not performed or refused? (CT, X-rays, U/S, labs)? Why? @ -None What meds were considered but not given or refused? Why? @ -None Did you discuss the management of the patient with other professionals (professionals i.e. , PA, BUSINESS CONTINUITY MANAGEMENT DIRECTOR, lab, RT, psych nurse, social service director, group supervisor yard, teacher, field crop technical officer, adult protective caseworker)? Give summary @ -No Was smoking cessation discussed for >3mins.? @ -No Was critical care preformed (if so, how long)? @ -No Were there social determinants of health that impacted care today? How? (Home lessness, low income, unemployed, alcoholism, drug addiction, transportation, low edu. Level, literacy, decrease access to med. care, halfway, rehab)? @ -No Was there de-escalation of care discussed even if they declined (Discuss DNR or withdrawal of care, Hospice)? DNR status @ -No What co-morbidities impacted this encounter? (DM, HTN, Smoking, COPD, CAD, Cancer, CVA, ARF, Chemo, Hep., AIDS, mental health diagnosis, sleep apnea, morbid obesity)? @Diabetes Was patient admitted / discharged? Hospital course, mention meds given and route, prescriptions, significant lab abnormalities, going to OR and other pertinent info. @ -[54-year-old female presenting with likely dehydration from the high t emperatures and no air conditioning. Patient had a prolonged wait in the emergency department and decided that she would go home and drink more fluids. She was feeling 100% better. Laboratory testing revealed an elevated blood sugar and CO2 of 16. Patient eager for discharge stating she will take her medicine at home as prescribed. Undiagnosed new problem with uncertain prognosis? @ -No Drug Therapy requiring intensive monitoring for toxicity (Heparin, Nitro, Insulin, Cardizem)? @ -No Were any procedures done? @ -No Diagnosis/symptom? @ -[Dehydration Acute, or Chronic, or Acute on Chronic? @ -Acute Uncomplicated (without systemic symptoms) or Complicated (systemic symptoms)? @ -Default Side effects of treatment? @ -No Exacerbation, Progression, or Severe Exacerbation? @ -No Poses a threat to life or bodily function? How? (Chest pain, USA, ID, pneumonia, PE, COPD, DKA, ARF, appy, cholecystitis, CVA, Diverticulitis, Homicidal, Suicidal, threat to staff... and all critical care pts) @ -No - Lab Data Result diagrams: 09/29/24 12:05 09/29/24 12:05 Lab Results 09/29/24 09/29/24 09/29/24 Range/Units 08:48 12:05 12:05 WBC 10.68 H (4.50-10.00) 10*3/uL RBC 5.03 (4.10-5.20) 10*6/uL Hgb 14.0 (12.0-15.0) g/dL Hct 40.8 (37.2-46.3) % MCV 81.1 (80.0-97.0) fL MCH 27.8 (27.0-32.0) pg MCHC 34.3 (32.0-37.0) g/dL Plt Count 552 H (140-440) 10*3/uL MPV 8.8 L (9.5-12.2) fL Immature Gran % (Auto) 0.4 % Neutrophils % 63.2 % Lymphocytes % 28.8 % Monocytes % 4.9 % Eosinophils % 2.0 % Basophils % 0.7 % Immature Gran # 0.04 (0.00-0.04) 10*3/uL Neutrophils # 6.76 (1.80-7.70) 10*3/uL Lymphocytes # 3.08 (0.90-5.00) 10*3/uL Monocytes # 0.52 (0.20-1.00) 10*3/uL Eosinophils # 0.21 (0.04-0.35) 10*3/uL Basophils # 0.07 (0.00-0.10) 10*3/uL Sodium 133 L (137-145) mmol/L Potassium 4.7 (3.5-5.1) mmol/L Chloride 100 (98-107) mmol/L Carbon Dioxide 16 L (22-30) mmol/L Anion Gap 17 mmol/L BUN 18 H (7-17) mg/dL Creatinine 0.68 (0.52-1.04) mg/dL Est GFR (CKD-EPI)AfAm >90 (>60 ml/min/1.73 sqM) Est GFR (CKD-EPI)NonAf >90 (>60 ml/min/1.73 sqM) Glucose 459 H (74-99) mg/dL POC Glucose (mg/dL) 496 H (70-110) mg/dL POC Glu Combination Welder Apprentice ID Cinda Luke Calcium 9.7 (8.4-10.2) mg/dL Total Bilirubin 0.9 (0.2-1.3) mg/dL AST 20 (14-36) U/L ALT 18 (4-34) U/L Alkaline Phosphatase 168 H (38-126) U/L Total Protein 7.5 (6.3-8.2) g/dL Albumin 4.3 (3.5-5.0) g/dL Disposition Clinical Impression: Dehydration, Hyperglycemia Disposition: HOME SELF-CARE Condition: Fair Instructions (If sedation given, give patient instructions): Dizziness (ED) Is patient prescribed a controlled substance at d/c from ED?: No Referrals: Ronel Manzano MD [Primary Care Provider] - 1-2 days Time of Disposition: 13:49
[2024-09-29 12:20] LABS: Basophils # (A) 0.07 10*3/uL (0.00-0.10); Basophils % (A) 0.7 %; Eosinophils # (A) 0.21 10*3/uL (0.04-0.35); HCT 40.8 % (37.2-46.3); Lymphocytes # (A) 3.08 10*3/uL (0.90-5.00); Lymphocytes % (A) 28.8 %; MCH 27.8 pg (27.0-32.0); MCHC 34.3 g/dL (32.0-37.0); MCV 81.1 fL (80.0-97.0); Mean Platelet Volume 8.8 fL (9.5-12.2); Monocytes # (A) 0.52 10*3/uL (0.20-1.00); Monocytes % (A) 4.9 %; Neutrophils # (A) 6.76 10*3/uL (1.80-7.70); Neutrophils % (A) 63.2 %; Platelet Count 552 10*3/uL (140-440); RBC 5.03 10*6/uL (4.10-5.20); RDW 15.6 % (11.5-14.5); WBC 10.68 10*3/uL (4.50-10.00)
[2024-09-29 12:43] LABS: ALT 18 U/L (4-34); AST 20 U/L (14-36); African American GFR (CKD) >90 (>60 ml/min/1.73 sqM); Albumin 4.3 g/dL (3.5-5.0); Alkaline Phosphatase 168 U/L (38-126); Anion Gap 17 mmol/L; Blood Urea Nitrogen 18 mg/dL (7-17); Calcium 9.7 mg/dL (8.4-10.2); Carbon Dioxide 16 mmol/L (22-30); Chloride 100 mmol/L (98-107); Glucose 459 mg/dL (74-99); Non-African American GFR(CKD) >90 (>60 ml/min/1.73 sqM); Potassium 4.7 mmol/L (3.5-5.1); Sodium 133 mmol/L (137-145); Total Bilirubin 0.9 mg/dL (0.2-1.3); Total Protein 7.5 g/dL (6.3-8.2)
[2024-09-29] MEDS: SODIUM CHLORIDE 0.9% 1,000 ML IV ONE (15:14)
[2024-09-29 16:17] LABS: Appearance,Urine Cloudy (Clear); Bilirubin,Urine Negative (Negative); Blood,Urine Trace (Negative); Color,Urine Yellow; Glucose,Urine (UA) 4+ (Negative); Hyaline Casts,Urine 4 /lpf (0-2); Ketones,Urine Negative (Negative); Leukocyte Esterase,Urine Negative (Negative); Mucus,Urine Rare /hpf; Nitrite,Urine Negative (Negative); Protein,Urine 2+ (Negative); RBC,Urine 3 /hpf (0-5); Specific Gravity,Urine 1.024 (1.001-1.035); Squamous Epithelial Cell,Urine 4 /hpf (0-4); Urobilinogen,Urine <2.0 mg/dL (<2.0); WBC,Urine 2 /hpf (0-5)
[2024-09-29 16:33] VITALS: BP 142/81; PULSE 66; RESP 16; TEMP 99.3
== END 2024-09-29 16:33 | disposition home or self-care (01) ==
LOC: EC 07:51
DX: E11.65 Type 2 diabetes mellitus with hyperglycemia (principal); E86.0 Dehydration; F17.290 Nicotine dependence, other tobacco product, uncomplicated; Z88.1 Allergy status to other antibiotic agents
CPT/HCPCS: 36415; 80053; 81001; 85025; 93005; 96360; 99284

== ENCOUNTER 2024-10-01 00:48 | Emergency (ER) | payer MEDICARE ==
[2024-10-01 00:53] VITALS: BP 149/86; PULSE 61; RESP 18; TEMP 98
--- NOTE | 2024-10-01 01:26 | ED ---
General Adult HPI - General Chief complaint: Chest Pain Stated complaint: Chest pain Time Seen by Provider: 10/01/24 00:54 Source: patient, EMS, RN notes reviewed Mode of arrival: EMS Limitations: no limitations - History of Present Illness Initial comments: 54-year-old female presents to the emergency department for evaluation of cough and overall not feeling well. Patient frequently presents to the our emergency department with similar complaints. She reports some discomfort in her chest with coughing. Cough is chronic in nature. She denies any fever, chills, shortness of breath. Denies any nausea or diaphoresis. She is typically noncompliant with her medications. She does note that she has been taking them as prescribed. - Related Data Home Medications Medication Instructions Recorded Confirmed Atorvastatin [Lipitor] 80 mg PO HS 06/25/19 09/13/24 Insulin Aspart [NovoLOG Flexpen] 20 units SQ AC-TID 09/13/24 09/13/24 Insulin Glargine,Hum.rec.anlog 35 unit SQ HS 09/13/24 09/13/24 [Basaglar Kwikpen U-100] Previous Rx's Medication Instructions Recorded Famotidine [Pepcid] 20 mg PO DAILY #20 tablet 04/18/24 Aspirin 81 mg PO DAILY #30 tab 09/16/24 Losartan [Cozaar] 25 mg PO DAILY #30 tab 09/16/24 Metoprolol Tartrate [Lopressor] 12.5 mg PO DAILY #30 tab 09/17/24 Allergies Allergy/AdvReac Type Severity Reaction Status Date / Time levofloxacin [From Levaquin] Allergy Rash/Hives Verified 10/01/24 00:52 Review of Systems ROS Statement: Those systems with pertinent positive or pertinent negative responses have been documented in the HPI. ROS Other: All systems not noted in ROS Statement are negative. Past Medical History Past Medical History: Diabetes Mellitus, GERD/Reflux, Hyperlipidemia, Hyperten randolph, Syncope Additional Past Medical History / Comment(s): Pt recently admitted to [facility] on 07/21/21 with uncontrolled IDDM and hyperkalemia. Other hx: Recurrent pancreatitis, hypertriglyceridemia, elevated lipase, IDDM type II, UTI, chronic low back pain, bulging discs, dental abscesses in past. History of Any Multi-Drug Resistant Organisms: MRSA Date of last positivie culture/infection: 11/24/23 MDRO Source:: Abdomen Past Surgical History: Tubal Ligation Additional Past Surgical History / Comment(s): Age 7 had VSD repair, tumor removal 03/2023 Past Anesthesia/Blood Transfusion Reactions: No Reported Reaction Past Psychological History: No Psychological Hx Reported Smoking Status: Former smoker, Second hand smoke exposure, Vaper Past Alcohol Use History: None Reported Past Drug Use History: None Reported - Past Family History Mother Family Medical History: No Reported History Additional Family Medical History / Comment(s): Mother was healthy. She is , pt cannot recall cause of . Father Family Medical History: Pneumonia Additional Family Medical History / Comment(s): Father at the age of 67yrs from pneumonia General Exam Limitations: no limitations General appearance: alert, in no apparent distress Head exam: Present: atraumatic, normocephalic, normal inspection Eye exam: Present: normal appearance, PERRL, EOMI. Absent: scleral icterus, conjunctival injection, periorbital swelling ENT exam: Present: normal exam, mucous membranes moist Neck exam: Present: normal inspection. Absent: tenderness, meningismus, lymphadenopathy Respiratory exam: Present: normal lung sounds bilaterally. Absent: respiratory distress, wheezes, rales, rhonchi, stridor Cardiovascular Exam: Present: regular rate, normal rhythm, normal heart sounds. Absent: systolic murmur, diastolic murmur, rubs, gallop, clicks Extremities exam: Present: normal inspection, full ROM, normal capillary refill. Absent: tenderness, pedal edema, joint swelling, calf tenderness Back exam: Present: normal inspection Neurological exam: Present: alert, oriented X3 Psychiatric exam: Present: normal affect, normal mood Skin exam: Present: warm, dry, intact, normal color. Absent: rash Course Vital Signs 10/01/24 00:50 Temperature 98 F Pulse Rate 61 Respiratory 18 Rate Blood Pressure 149/86 O2 Sat by Pulse 97 Oximetry Medical Decision Making - Medical Decision Making Was pt. sent in by a medical professional or institution (Dr. PA, CATTLE STICKER, urgent care, hospital, or [facility]...) When possible be specific @ -No Did you speak to anyone other than the patient for history (EMS, parent, family, police, friend...)? What history was obtained from this source @ -No Did you review nursing and triage notes (agree or disagree)? Why? @ -I reviewed and agree with nursing and triage notes Were old charts reviewed (outside hosp., previous admission, EMS record, old EKG, old radiological studies, urgent care reports/EKG's, [facility] records)? Report findings @ -No old charts were reviewed Differential Diagnosis (chest pain, altered mental status, abdominal pain women, abdominal pain men, vaginal bleeding, weakness, fever, dyspnea, syncope, headache, dizziness, GI bleed, back pain, seizure, CVA, palpatations, mental health, musculoskeletal)? @ -Differential Weakness: Hypoglycemia, shock, sepsis, hyponatremia, anemia, infection, AR, ETOH, adverse medicine reaction, overdose, stroke, this is not meant to be an all-inclusive list. EKG interpreted by me (3pts min.). @ -EKG@121 shows sinus rhythm rate 61, [place] 166, QRS 84, QTQTc [id number] X-rays interpreted by me (1pt min.). @ -None done CT interpreted by me (1pt min.). @ -None done U/S interpreted by me (1pt. min.). @ -None done What testing was considered but not performed or refused? (CT, X-rays, U/S, labs)? Why? @ -None What meds were considered but not given or refused? Why? @ -None Did you discuss the management of the patient with other professionals (professionals i.e. , PA, CATTLE STICKER, lab, RT, psych nurse, social work supervisor, steel tier, teacher, field artillery officer, caser in)? Give summary @ -No Was smoking cessation discussed for >3mins.? @ -No Was critical care preformed (if so, how long)? @ -No Were there social determinants of health that impacted care today? How? (Homelessness, low income, unemployed, alcoholism, drug addiction, transportation, low edu. Level, literacy, decrease access to med. care, care home, rehab)? @ -No Was there de-escalation of care discussed even if they declined (Discuss DNR or withdrawal of care, Hospice)? DNR status @ -No What co-morbidities impacted this encounter? (DM, HTN, Smoking, COPD, CAD, Cancer, CVA, ARF, Chemo, Hep., AIDS, mental health diagnosis, sleep apnea, morbid obesity)? @ -None Was patient admitted / discharged? Hospital course, mention meds given and route, prescriptions, significant lab abnormalities, going to OR and other pertinent info. @ -Discharge. Patient presented emergency department for evaluation of cough and overall not feeling well. Patient was recently admitted for similar complaints. She underwent a cardiac catheterization with no stenting performed. EKG showed sinus rhythm with no acute T wave abnormalities. Patient was provided medication for pain control and symptom control in the emergency department. She will be discharged home. She is understanding agreeable to plan. Patient stable time of discharge. Case discussed with Dr. Tobin. Undiagnosed new problem with uncertain prognosis? @ -No Drug Therapy requiring intensive monitoring for toxicity (Heparin, Nitro, Insulin, Cardizem)? @ -No Were any procedures done? @ -No Diagnosis/symptom? @ -Cough Acute, or Chronic, or Acute on Chronic? @ -Chronic Uncomplicated (without systemic symptoms) or Complicated (systemic symptoms)? @ -Uncomplicated Side effects of treatment? @ -No Exacerbation, Progression, or Severe Exacerbation? @ -No Poses a threat to life or bodily function? How? (Chest pain, USA, AR, pneumonia, PE, COPD, DKA, ARF, appy, cholecystitis, CVA, Diverticulitis, Homicidal, Suicidal, threat to staff... and all critical care pts) @ -No Disposition Clinical Impression: Chronic pain, Chronic cough Disposition: HOME SELF-CARE Condition: Stable Instructions (If sedation given, give patient instructions): Chest Pain (ED), Chronic Cough (ED) Is patient prescribed a controlled substance at d/c from ED?: No Referrals: Ronel Manzano MD [Primary Care Provider] - 1-2 days
[2024-10-01] MEDS: ACET/COD 300 MG/30 MG STARTER PACK 6 TAB BTL PO STA (02:13)
[2024-10-01] MEDS: KETOROLAC 15 MG/ML 1 ML VIAL IM STA (02:13)
== END 2024-10-01 02:19 | disposition home or self-care (01) ==
LOC: EC 00:48
DX: R05.3 Chronic cough (principal); G89.29 Other chronic pain; Z91.148 Patient's other noncompliance with medication regimen for other reason; F17.290 Nicotine dependence, other tobacco product, uncomplicated; Z88.1 Allergy status to other antibiotic agents
CPT/HCPCS: 93005; 99285; 96372; J1885

== ENCOUNTER 2024-10-04 01:48 | Emergency (ER) | payer MEDICARE, OTHER ==
[2024-10-04 01:55] VITALS: RESP 18; TEMP 98.1
--- NOTE | 2024-10-04 03:04 | XR ---
EXAM: XR Chest, 2 Views CLINICAL HISTORY: ITS.REASON XR Reason: Chest Pain TECHNIQUE: Frontal and lateral views of the chest. COMPARISON: No relevant prior studies available. FINDINGS: Lungs: No consolidation or mass. Pleural space: No effusion. Heart: No cardiomegaly. Bones/joints: No acute findings. IMPRESSION: No acute cardiopulmonary process.
[2024-10-04] MEDS: ONDANSETRON 4 MG/2 ML VIAL IVP STA (06:17)
[2024-10-04] MEDS: SODIUM CHLORIDE 0.9% 1,000 ML IV STA (06:19)
[2024-10-04] MEDS: ASPIRIN 81 MG PO STA (06:19)
[2024-10-04] MEDS: MORPHINE SULFATE 4 MG/ML SYRINGE IVP STA (06:20)
[2024-10-04 06:29] LABS: Basophils # (A) 0.06 10*3/uL (0.00-0.10); Basophils % (A) 0.6 %; Eosinophils # (A) 0.23 10*3/uL (0.04-0.35); Eosinophils % (A) 2.2 %; HCT 38.5 % (37.2-46.3); HGB 13.2 g/dL (12.0-15.0); Lymphocytes # (A) 3.49 10*3/uL (0.90-5.00); Lymphocytes % (A) 33.9 %; MCH 27.6 pg (27.0-32.0); MCHC 34.3 g/dL (32.0-37.0); MCV 80.5 fL (80.0-97.0); Monocytes % (A) 5.8 %; Neutrophils # (A) 5.87 10*3/uL (1.80-7.70); Neutrophils % (A) 57.2 %; Platelet Count 494 10*3/uL (140-440); RBC 4.78 10*6/uL (4.10-5.20); RDW 15.4 % (11.5-14.5); WBC 10.28 10*3/uL (4.50-10.00)
--- NOTE | 2024-10-04 06:34 | ED ---
General Adult HPI - General Chief complaint: Chest Pain Stated complaint: Chest discomfort Time Seen by Provider: 10/04/24 02:20 Source: patient, RN notes reviewed, old records reviewed Mode of arrival: ambulatory Limitations: no limitations - History of Present Illness Initial comments: Patient is a 54-year-old female well-known to our emergency department presents emergency department chest wall pain. This is a frequent visit for her. States she also has a chronic cough that goes along with this chest wall pain. Recently was admitted to the hospital he had a cardiac cath which showed mild disease and was not intervened on. This was a few weeks ago. Otherwise has no other acute complaints at this time but there is blood there is reproducible chest wall pain. States it is worse with movements as well is with cough. Is here frequently for the same complaint. Presents for further evaluation at this time.Patient has this chest discomfort on a daily basis and has been present for multiple days.States pain does not radiate. Denies any nausea vomiting or diaphoresis. Does not seem cardiac in nature. - Related Data Home Medications Medication Instructions Recorded Confirmed Atorvastatin [Lipitor] 80 mg PO HS 06/25/19 09/13/24 Insulin Aspart [NovoLOG Flexpen] 20 units SQ AC-TID 09/13/24 09/13/24 Insulin Glargine,Hum.rec.anlog 35 unit SQ HS 09/13/24 09/13/24 [Basaglar Kwikpen U-100] Previous Rx's Medication Instructions Recorded Famotidine [Pepcid] 20 mg PO DAILY #20 tablet 04/18/24 Aspirin 81 mg PO DAILY #30 tab 09/16/24 Losartan [Cozaar] 25 mg PO DAILY #30 tab 09/16/24 Metoprolol Tartrate [Lopressor] 12.5 mg PO DAILY #30 tab 09/17/24 Magnesium Oxide [Mag-Ox] 400 mg PO DAILY 3 Days #3 tablet 10/04/24 Allergies Allergy/AdvReac Type Severity Reaction Status Date / Time levofloxacin [From Levaquin] Allergy Rash/Hives Verified 10/04/24 01:55 Review of Systems ROS Statement: Those systems with pertinent positive or pertinent negative responses have been documented in the HPI. Review of Systems: CONST: Denies fever EYES: Denies blurry vision ENT: Denies nasal congestion C/V: Endorses chest wall pain RESP: Denies shortness of breath GI: Denies abdominal pain : Denies dysuria SKIN: Denies rash. MSK: Denies joint pain. NEURO: Denies headache ROS Other: All systems not noted in ROS Statement are negative. Past Medical History Past Medical History: Diabetes Mellitus, GERD/Reflux, Hyperlipidemia, Hypertension, Syncope Additional Past Medical History / Comment(s): Pt recently admitted to [facility] on 07/21/21 with uncontrolled IDDM and hyperkalemia. Other hx: Recurrent pancreatitis, hypertriglyceridemia, elevated lipase, IDDM type II, UTI, chronic low back pain, bulging discs, dental abscesses in past. History of Any Multi-Drug Resistant Organisms: MRSA Date of last positivie culture/infection: 03/01/23 MDRO Source:: Abdomen Past Surgical History: Tubal Ligation Additional Past Surgical History / Comment(s): Age 7 had VSD repair, tumor removal 03/2023 Past Anesthesia/Blood Transfusion Reactions: No Reported Reaction Past Psychological History: No Psychological Hx Reported Smoking Status: Former smoker, Second hand smoke exposure, Vaper Past Alcohol Use History: None Reported Past Drug Use History: None Reported - Past Family History Mother Family Medical History: No Reported History Additional Family Medical History / Comment(s): Mother was healthy. She is , pt cannot recall cause of . Father Family Medical History: Pneumonia Additional Family Medical History / Comment(s): Father at the age of 67yrs from pneumonia General Exam - General Exam Comments Initial Comments: General: Appears in no acute distress. HEAD: Normal with no signs of head trauma. EYES: PERRLA, EOMI, conjunctiva normal, no discharge. ENT: Hearing grossly intact, normal oropharynx. RESPIRATORY: Clear breath sounds bilaterally. No wheezes, rales, or rhonchi. C/V: Regular rate and rhythm. S1 and S2 auscultated, no edema, peripheral pulses 2+ and intact throughout. Chest pain reproducible with palpation over the sternum. Does not radiate. ABD: Abd is soft, nontender, nondistended EXT: Normal range of motion, no obvious deformity SKIN: No rashes or lesions observed on exposed skin. NEURO: Alert and oriented x 4. Limitations: no limitations Course Vital Signs 10/04/24 10/04/24 01:53 07:53 Temperature 98.1 F Pulse Rate 61 53 L Respiratory 18 18 Rate Blood Pressure 170/84 169/78 O2 Sat by Pulse 98 99 Oximetry Medical Decision Making - Medical Decision Making Was pt. sent in by a medical professional or institution (, ROSALIE, WIND PROJECTS SUPERVISOR, urgent care, hospital, or correction...) When possible be specific @ -No Did you speak to anyone other than the patient for history (EMS, parent, family, police, friend...)? What history was obtained from this source @ -No Did you review nursing and triage notes (agree or disagree)? Why? @ -I reviewed and agree with nursing and triage notes Were old charts reviewed (outside hosp., previous admission, EMS record, old EKG, old radiological studies, urgent care reports/EKG's, correction records)? Report findings @ -Reviewed chart from earlier in September 2024 when she had a cardiac catheterization which showed no stents were placed and patient had some mild disease. Differential Diagnosis (chest pain, altered mental status, abdominal pain women, abdominal pain men, vaginal bleeding, weakness, fever, dyspnea, syncope, headache, dizziness, GI bleed, back pain, seizure, CVA, palpatations, mental health, musculoskeletal)? @ -Differential Chest Pain: Stable Angina, Unstable Angina, STEMI, NSTEMI Aortic Dissection, Pneumothorax, Musculoskeletal, Esophageal Spasm GERD, Cholecystitis, Pancreatitis, Zoster, this is not meant to be an all-inclusive list. EKG interpreted by me (3pts min.). @ -As above X-rays interpreted by me (1pt min.). @ -Chest x-ray reveals no obvious acute cardiopulmonary process. CT interpreted by me (1pt min.). @ -None done U/S interpreted by me (1pt. min.). @ -None done What testing was considered but not performed or refused? (CT, X-rays, U/S, labs)? Why? @ -None What meds were considered but not given or refused? Why? @ -None Did you discuss the management of the patient with other professionals (professionals i.e. ROSALIE Flaherty, WIND PROJECTS SUPERVISOR, lab, RT, psych nurse, health social work professor, heel seam rubber, te acher, forest officer, rehabilitation case coordinator)? Give summary @ -No Was smoking cessation discussed for >3mins.? @ -No Was critical care preformed (if so, how long)? @ -No Were there social determinants of health that impacted care today? How? (Homelessness, low income, unemployed, alcoholism, drug addiction, transportation, low edu. Level, literacy, decrease access to med. care, retirement, rehab)? @ -No Was there de-escalation of care discussed even if they declined (Discuss DNR or withdrawal of care, Hospice)? DNR status @ -No What co-morbidities impacted this encounter? (DM, HTN, Smoking, COPD, CAD, C ancer, CVA, ARF, Chemo, Hep., AIDS, mental health diagnosis, sleep apnea, morbid obesity)? @ -None Was patient admitted / discharged? Hospital course, mention meds given and route, prescriptions, significant lab abnormalities, going to OR and other pertinent info. @ -Presents with chronic chest pain. Did recently have a cardiac catheterization therefore we will obtain cardiac workup patient be symptomatically treat with IV analgesia medications, Zofran. She was in agreement this plan. Vitals are within acceptable limits. Pain has been present for multiple days. Does not seem to be cardiac in nature. Patient is given 324 mg of aspirin. EKG shows no signs of acute ischemia. Chest x-ray reveals no obvious acute cardiopulmonary process. Laboratory studies remarkable for undetectable troponin. Slight hypomagnesemia of 1.3. Chronic anemia. On reevaluation, patient's pain is improved. We discussed her workup. Heart score is low and it seems this is chest wall pain. She will be discharged home at this time. She is given magnesium tablets for home. She was in agreement this plan. I will provide the patient with a prescription for magnesium oxide. I instructed the patient to follow up with their PCP in the next 1-3 days.. I explained that the patient should return to the emergency department if they experience any worsening symptoms. Strict return precautions were discussed with the patient. The patient expressed understanding of these instructions. I answered all questions that the patient had. The patient was discharged home in good condition with their prescriptions and follow up information. Undiagnosed new problem with uncertain prognosis? @ -No Drug Therapy requiring intensive monitoring for toxicity (Heparin, Nitro, Insulin, Cardizem)? @ -No Were any procedures done? @ -No Diagnosis/symptom? @ -Chest wall pain, hypomagnesemia Acute, or Chronic, or Acute on Chronic? @ -Acute Uncomplicated (without systemic symptoms) or Complicated (systemic symptoms)? @ -Uncomplicated Side effects of treatment? @ -No Exacerbation, Progression, or Severe Exacerbation? @ -No Poses a threat to life or bodily function? How? (Chest pain, USA, [place], pneumonia, PE, COPD, DKA, ARF, appy, cholecystitis, CVA, Diverticulitis, Homicidal, Suicidal, threat to staff... and all critical care pts) @ -Unlikely at this time - Lab Data Result diagrams: 10/04/24 06:15 10/04/24 06:15 Lab Results 10/04/24 10/04/24 10/04/24 Range/Units 06:15 06:15 06:15 WBC 10.28 H (4.50-10.00) 10*3/uL RBC 4.78 (4.10-5.20) 10*6/uL Hgb 13.2 (12.0-15.0) g/dL Hct 38.5 (37.2-46.3) % MCV 80.5 (80.0-97.0) fL MCH 27.6 (27.0-32.0) pg MCHC 34.3 (32.0-37.0) g/dL Plt Count 494 H (140-440) 10*3/uL MPV 9.0 L (9.5-12.2) fL Immature Gran % (Auto) 0.3 % Neutrophils % 57.2 % Lymphocytes % 33.9 % Monocytes % 5.8 % Eosinophils % 2.2 % Basophils % 0.6 % Immature Gran # 0.03 (0.00-0.04) 10*3/uL Neutrophils # 5.87 (1.80-7.70) 10*3/uL Lymphocytes # 3.49 (0.90-5.00) 10*3/uL Monocytes # 0.60 (0.20-1.00) 10*3/uL Eosinophils # 0.23 (0.04-0.35) 10*3/uL Basophils # 0.06 (0.00-0.10) 10*3/uL PT 10.3 (10.0-12.5) sec INR 0.9 (<1.2) APTT 21.8 L (22.0-30.0) sec Sodium 132 L (137-145) mmol/L Potassium 4.4 (3.5-5.1) mmol/L Chloride 101 (98-107) mmol/L Carbon Dioxide 19 L (22-30) mmol/L Anion Gap 12 mmol/L BUN 12 (7-17) mg/dL Creatinine 0.56 (0.52-1.04) mg/dL Est GFR (CKD-EPI)AfAm >90 (>60 ml/min/1.73 sqM) Est GFR (CKD-EPI)NonAf >90 (>60 ml/min/1.73 sqM) Glucose 364 H (74-99) mg/dL Calcium 9.3 (8.4-10.2) mg/dL Magnesium 1.3 L (1.6-2.3) mg/dL Total Bilirubin 0.4 (0.2-1.3) mg/dL AST 20 (14-36) U/L ALT 16 (4-34) U/L Alkaline Phosphatase 143 H (38-126) U/L Troponin I (0.000-0.034) ng/mL Total Protein 6.9 (6.3-8.2) g/dL Albumin 4.0 (3.5-5.0) g/dL 10/04/24 Range/Units 06:15 WBC (4.50-10.00) 10*3/uL RBC (4.10-5.20) 10*6/uL Hgb (12.0-15.0) g/dL Hct (37.2-46.3) % MCV (80.0-97.0) fL MCH (27.0-32.0) pg MCHC (32.0-37.0) g/dL Plt Count (140-440) 10*3/uL MPV (9.5-12.2) fL Immature Gran % (Auto) % Neutrophils % % Lymphocytes % % Monocytes % % Eosinophils % % Basophils % % Immature Gran # (0.00-0.04) 10*3/uL Neutrophils # (1.80-7.70) 10*3/uL Lymphocytes # (0.90-5.00) 10*3/uL Monocytes # (0.20-1.00) 10*3/uL Eosinophils # (0.04-0.35) 10*3/uL Basophils # (0.00-0.10) 10*3/uL PT (10.0-12.5) sec INR (<1.2) APTT (22.0-30.0) sec Sodium (137-145) mmol/L Potassium (3.5-5.1) mmol/L Chloride (98-107) mmol/L Carbon Dioxide (22-30) mmol/L Anion Gap mmol/L BUN (7-17) mg/dL Creatinine (0.52-1.04) mg/dL Est GFR (CKD-EPI)AfAm (>60 ml/min/1.73 sqM) Est GFR (CKD-EPI)NonAf (>60 ml/min/1.73 sqM) Glucose (74-99) mg/dL Calcium (8.4-10.2) mg/dL Magnesium (1.6-2.3) mg/dL Total Bilirubin (0.2-1.3) mg/dL AST (14-36) U/L ALT (4-34) U/L Alkaline Phosphatase (38-126) U/L Troponin I <0.012 (0.000-0.034) ng/mL Total Protein (6.3-8.2) g/dL Albumin (3.5-5.0) g/dL - EKG Data -: EKG Interpreted by Me EKG Comments: 12-lead Electrocardiogram Interpretation Note EKG was reviewed and interpreted by myself. 12-lead ECG performed at 0201 is int erpreted by me as revealing normal sinus rhythm at a rate of 62 beats per minute. [place] is normal. [place] interval is 169 ms, QRS duration is 89 ms, QTc is 421 ms.. There were no ST or T wave abnormalities to suggest myocardial ischemia or injury. R wave progression across the precordium was satisfactory. By my interpretation this EKG is non-diagnostic for acute ischemia. Disposition Clinical Impression: Chest wall pain, Hypomagnesemia Disposition: HOME SELF-CARE Condition: Good Instructions (If sedation given, give patient instructions): Chest Pain (ED) Prescriptions: Magnesium Oxide [Mag-Ox] 400 mg PO DAILY 3 Days #3 tablet Is patient prescribed a controlled substance at d/c from ED?: No Referrals: Ronel Manzano MD [Primary Care Provider] - 1-2 days Time of Disposition: 07:18
[2024-10-04 06:56] LABS: ALT 16 U/L (4-34); AST 20 U/L (14-36); African American GFR (CKD) >90 (>60 ml/min/1.73 sqM); Alkaline Phosphatase 143 U/L (38-126); Anion Gap 12 mmol/L; Blood Urea Nitrogen 12 mg/dL (7-17); Calcium 9.3 mg/dL (8.4-10.2); Carbon Dioxide 19 mmol/L (22-30); Chloride 101 mmol/L (98-107); Glucose 364 mg/dL (74-99); Magnesium 1.3 mg/dL (1.6-2.3); Non-African American GFR(CKD) >90 (>60 ml/min/1.73 sqM); Potassium 4.4 mmol/L (3.5-5.1); Sodium 132 mmol/L (137-145); Total Bilirubin 0.4 mg/dL (0.2-1.3); Total Protein 6.9 g/dL (6.3-8.2)
[2024-10-04 07:20] LABS: INR 0.9 (<1.2); Partial Thromboplastin Time 21.8 sec (22.0-30.0); Prothrombin Time 10.3 sec (10.0-12.5)
[2024-10-04] MEDS: MAGNESIUM SULFATE-D5W PMX 1 GM in DEXTROSE/WATER 1 100ML.BAG IVPB ONE (07:46)
[2024-10-04] MEDS: MAGNESIUM OXIDE 400 MG TAB PO STA (07:49)
[2024-10-04 07:54] VITALS: BP 169/78; PULSE 53
== END 2024-10-04 07:56 | disposition home or self-care (01) ==
LOC: EC 01:48
DX: R07.89 Other chest pain (principal); E83.42 Hypomagnesemia; F17.290 Nicotine dependence, other tobacco product, uncomplicated; Z88.1 Allergy status to other antibiotic agents
CPT/HCPCS: 99285; 96374; 96375; 96361; 36415; 93005; 80053; 83735; 84484; 85025; 85610; 85730; 71046; J2270; J2405

== ENCOUNTER 2024-10-07 16:19 | Emergency (ER) | payer MEDICARE ==
--- NOTE | 2024-10-07 16:43 | ED ---
General Adult HPI - General Chief complaint: Extremity Injury, Lower Stated complaint: L ankle pain Time Seen by Provider: 10/07/24 16:25 Source: patient, RN notes reviewed, old records reviewed Mode of arrival: EMS Limitations: no limitations - History of Present Illness Initial comments: 54-year-old female well-known to emergency department presents complaining of left foot and ankle pain. No recent trauma. States she sprained it early last month. Began having similar complaints today. Denies any obvious injury. States the pain is primarily in her ankle and radiates down to her toes with movement of her foot. Mostly on the medial aspect. No sensory deficits. Has been unable to wear the boot because she states it irritates it. Presents for further evaluation at this time. - Related Data Home Medications Medication Instructions Recorded Confirmed Atorvastatin [Lipitor] 80 mg PO HS 06/25/19 09/13/24 Insulin Aspart [NovoLOG Flexpen] 20 units SQ AC-TID 09/13/24 09/13/24 Insulin Glargine,Hum.rec.anlog 35 unit SQ HS 09/13/24 09/13/24 [Basaglar Kwikpen U-100] Previous Rx's Medication Instructions Recorded Famotidine [Pepcid] 20 mg PO DAILY #20 tablet 04/18/24 Aspirin 81 mg PO DAILY #30 tab 09/16/24 Losartan [Cozaar] 25 mg PO DAILY #30 tab 09/16/24 Metoprolol Tartrate [Lopressor] 12.5 mg PO DAILY #30 tab 09/17/24 Magnesium Oxide [Mag-Ox] 400 mg PO DAILY 3 Days #3 tablet 10/04/24 Allergies Allergy/AdvReac Type Severity Reaction Status Date / Time levofloxacin [From Levaquin] Allergy Rash/Hives Verified 10/07/24 16:22 Review of Systems ROS Statement: Those systems with pertinent positive or pertinent negative responses have been documented in the HPI. Review of Systems: CONST: Denies fever EYES: Denies blurry vision ENT: Denies nasal congestion C/V: Denies Chest pain RESP: Denies shortness of breath GI: Denies abdominal pain : Denies dysuria SKIN: Denies rash. MSK: Endorses right ankle pain. Endorses right foot pain NEURO: Denies headache ROS Other: All systems not noted in ROS Statement are negative. Past Medical History Past Medical History: Diabetes Mellitus, GERD/Reflux, Hyperlipidemia, Hypertension, Syncope Additional Past Medical History / Comment(s): Pt recently admitted to [facility] on 07/21/21 with uncontrolled IDDM and hyperkalemia. Other hx: Recurrent pancreatitis, hypertriglyceridemia, elevated lipase, IDDM type II, UTI, chronic low back pain, bulging discs, dental abscesses in past. History of Any Multi-Drug Resistant Organisms: MRSA Date of last positivie culture/infection: 03/01/23 MDRO Source:: Abdomen Past Surgical History: Tubal Ligation Additional Past Surgical History / Comment(s): Age 7 had VSD repair, tumor removal 03/2023 Past Anesthesia/Blood Transfusion Reactions: No Reported Reaction Past Psychological History: No Psychological Hx Reported Smoking Status: Former smoker, Second hand smoke exposure, Vaper Past Alcohol Use History: None Reported Past Drug Use History: None Reported - Past Family History Mother Family Medical History: No Reported History Additional Family Medical History / Comment(s): Mother was healthy. She is , pt cannot recall cause of . Father Family Medical History: Pneumonia Additional Family Medical History / Comment(s): Father at the age of 67yrs from pneumonia General Exam - General Exam Comments Initial Comments: General: Appears in no acute distress. HEAD: Normal with no signs of head trauma. EYES: EOMI. ENT: Hearing grossly intact. RESPIRATORY: No respiratory distress. C/V: Regular rate and rhythm. ABD: Abdomen is nondistended. EXT: Left Medial malleolar discomfort and tenderness on palpation. No obvious deformity. No edema. Neurovasc intact throughout the left lower extremity. No obvious injury. SKIN: No rashes or lesions observed on exposed skin. NEURO: Alert and oriented. Limitations: no limitations Course Vital Signs 10/07/24 10/07/24 16:20 17:41 Temperature 99.1 F 98.0 F Pulse Rate 73 98 Respiratory 16 20 Rate Blood Pressure 127/78 128/76 O2 Sat by Pulse 97 98 Oximetry Medical Decision Making - Medical Decision Making Was pt. sent in by a medical professional or institution (, PA, ASSEMBLER CHASSIS, urgent care, hospital, or skilled nursing...) When possible be specific @ -No Did you speak to anyone other than the patient for history (EMS, parent, family, police, friend...)? What history was obtained from this source @ -No Did you review nursing and triage notes (agree or disagree)? Why? @ -I reviewed and agree with nursing and triage notes Were old charts reviewed (outside hosp., previous admission, EMS record, old EKG, old radiological studies, urgent care reports/EKG's, skilled nursing records)? Report findings @ -Reviewed x-rays of foot and ankle from early September 2024 with no significant findings. Differential Diagnosis (chest pain, altered mental status, abdominal pain women, abdominal pain men, vaginal bleeding, weakness, fever, dyspnea, syncope, headache, dizziness, GI bleed, back pain, seizure, CVA, palpatations, mental health, musculoskeletal)? @ -Differential Musculoskeletal Muscular strain, contusion, ligament sprain, fracture, arthritis, septic arthritis, bursitis, cellulitis, muscle spasm, nerve compression, DVT, arterial occlusion, herpes zoster, electrolyte abnormality, tumor.... This is not meant to be in all inclusive list EKG interpreted by me (3pts min.). @ -None done X-rays interpreted by me (1pt min.). @ -X-rays negative for any traumatic injury. Mild edema at the ankle. Likely secondary to sprain. CT interpreted by me (1pt min.). @ -None done U/S interpreted by me (1pt. min.). @ -None done What testing was considered but not performed or refused? (CT, X-rays, U/S, labs)? Why? @ -None What meds were considered but not given or refused? Why? @ -None Did you discuss the management of the patient with other professionals (professionals i.e. , PA, ASSEMBLER CHASSIS, lab, RT, psych nurse, social contact worker, color depositing machine tender, teacher, airfield engineer officer, residential case manager)? Give summary @ -No Was smoking cessation discussed for >3mins.? @ -No Was critical care preformed (if so, how long)? @ -No Were there social determinants of health that impacted care today? How? (Homelessness, low income, unemployed, alcoholism, drug addiction, transport ation, low edu. Level, literacy, decrease access to med. care, residential, rehab)? @ -No Was there de-escalation of care discussed even if they declined (Discuss DNR or withdrawal of care, Hospice)? DNR status @ -No What co-morbidities impacted this encounter? (DM, HTN, Smoking, COPD, CAD, Cancer, CVA, ARF, Chemo, Hep., AIDS, mental health diagnosis, sleep apnea, morbid obesity)? @ -None Was patient admitted / discharged? Hospital course, mention meds given and route, prescriptions, significant lab abnormalities, going to OR and other pertinent info. @ -Patient presents with left foot and ankle pain. Atraumatic. Diagnosed with an ankle sprain last month. Will repeat imaging of the ankle and foot and administer a dose of steroid as well as Toradol. Patient was in agreement this plan. Vital signs are within acceptable limits. No obvious deformity on exam. X-rays show mild edema at the ankle but no other obvious acute deformity or fracture. No obvious traumatic injury. I updated the patient. She will be discharged home at this time. She is given a stirrup splint. She was in agreement this plan. Strict return precautions discussed. I instructed the patient to follow up with their PCP in the next 1-3 days. I explained that the patient should return to the emergency department if they experience any worsening symptoms. Strict return precautions were discussed with the patient. The patient expressed understanding of these instructions. I answered all questions that the patient had. The patient was discharged home in good condition with their prescriptions and follow up information. Undiagnosed new problem with uncertain prognosis? @ -No Drug Therapy requiring intensive monitoring for toxicity (Heparin, Nitro, Insulin, Cardizem)? @ -No Were any procedures done? @ -No Diagnosis/symptom? @ -Left ankle sprain Acute, or Chronic, or Acute on Chronic? @ -Acute Uncomplicated (without systemic symptoms) or Complicated (systemic symptoms)? @ -Uncomplicated Side effects of treatment? @ -None Exacerbation, Progression, or Severe Exacerbation] @ -No Poses a threat to life or bodily function? @ -Unlikely at this time Disposition Clinical Impression: Left ankle sprain Disposition: HOME SELF-CARE Condition: Good Instructions (If sedation given, give patient instructions): Ankle Sprain (ED) Is patient prescribed a controlled substance at d/c from ED?: No Referrals: Ronel Manzano MD [STAFF PHYSICIAN] - 1-2 days Juan Cruz MD [STAFF PHYSICIAN] - 1-2 days Time of Disposition: 17:02
--- NOTE | 2024-10-07 16:59 | XR ---
EXAMINATION TYPE: XR ankle limited LT, XR foot limited LT DATE OF EXAM: 10/07/2024 COMPARISON: Left foot and ankle radiographs 09/14/2024 HISTORY: Pain TECHNIQUE: Left ankle was evaluated in frontal and lateral projections. The left foot was evaluated i n frontal and lateral projections. FINDINGS: There is no evidence for fracture or dislocation. Ankle mortise is intact. Small posterior and plantar calcaneal enthesophytes. Mild soft tissue swelling of the ankle. Most pronounced over the medial malleolus. Vascular sclerosis. Small posterior plantar calcaneal enthesophytes. IMPRESSION: 1. No evidence for acute fracture. 2. Mild persistent soft tissue swelling of the ankle. [facility], , 10/07/2024 4:57 PM
[2024-10-07] MEDS: KETOROLAC 15 MG/ML 1 ML VIAL IM STA (17:31)
[2024-10-07 17:48] VITALS: BP 128/76; PULSE 98; RESP 20; TEMP 98
== END 2024-10-07 17:43 | disposition home or self-care (01) ==
LOC: EC 16:19
DX: S93.402A Sprain of unspecified ligament of left ankle, initial encounter (principal); F17.290 Nicotine dependence, other tobacco product, uncomplicated; Z88.1 Allergy status to other antibiotic agents; X58.XXXA Exposure to other specified factors, initial encounter
CPT/HCPCS: 73600; 73620; 99284; 96372; J8540; J1885

== ENCOUNTER 2024-10-08 00:11 | Emergency (ER) | payer MEDICARE ==
[2024-10-08 00:54] VITALS: BP 156/72; PULSE 67; RESP 22; TEMP 98.2
--- NOTE | 2024-10-08 01:12 | ED ---
Extremity Problem HPI - General Chief complaint: Extremity Problem,Nontraumatic Stated complaint: L Leg Pain Time Seen by Provider: 10/08/24 01:08 Source: patient, RN notes reviewed Mode of arrival: ambulatory Limitations: no limitations - History of Present Illness Initial comments: 54-year-old well-known to the emergency department presenting for left ankle pain. States she was seen yesterday for same symptoms where she underwent x-ray and was told she had soft tissue swelling consistent with ankle sprain. Patient was given Aircast. States she sprained her ankle about a month ago otherwise denies any new injuries or trauma. States she was given a Toradol injection with little improvement of pain. No other complaints at this time. - Related Data Home Medications Medication Instructions Recorded Confirmed Atorvastatin [Lipitor] 80 mg PO HS 06/25/19 09/13/24 Insulin Aspart [NovoLOG Flexpen] 20 units SQ AC-TID 09/13/24 09/13/24 Insulin Glargine,Hum.rec.anlog 35 unit SQ HS 09/13/24 09/13/24 [Basaglar Kwikpen U-100] Previous Rx's Medication Instructions Recorded Famotidine [Pepcid] 20 mg PO DAILY #20 tablet 04/18/24 Aspirin 81 mg PO DAILY #30 tab 09/16/24 Losartan [Cozaar] 25 mg PO DAILY #30 tab 09/16/24 Metoprolol Tartrate [Lopressor] 12.5 mg PO DAILY #30 tab 09/17/24 Magnesium Oxide [Mag-Ox] 400 mg PO DAILY 3 Days #3 tablet 10/04/24 Ibuprofen [Motrin] 600 mg PO Q8HR PRN #20 tab 10/08/24 Allergies Allergy/AdvReac Type Severity Reaction Status Date / Time levofloxacin [From Levaquin] Allergy Rash/Hives Verified 10/08/24 00:54 Review of Systems ROS Statement: Those systems with pertinent positive or pertinent negative responses have been documented in the HPI. ROS Other: All systems not noted in ROS Statement are negative. Past Medical History Past Medical History: Diabetes Mellitus, GERD/Reflux, Hyperlipidemia, Hypertension, Syncope Additional Past Medical History / Comment(s): Pt recently admitted to [facility] on 07/21/21 with uncontrolled IDDM and hyperkalemia. Other hx: Recurrent pancreatitis, hypertriglyceridemia, elevated lipase, IDDM type II, UTI, chronic low back pain, bulging discs, dental abscesses in past. History of Any Multi-Drug Resistant Organisms: MRSA Date of last positivie culture/infection: 03/01/23 MDRO Source:: Abdomen Past Surgical History: Tubal Ligation Additional Past Surgical History / Comment(s): Age 7 had VSD repair, tumor removal 03/2023 Past Anesthesia/Blood Transfusion Reactions: No Reported Reaction Past Psychological History: No Psychological Hx Reported Smoking Status: Former smoker, Second hand smoke exposure, Vaper Past Alcohol Use History: None Reported Past Drug Use History: None Reported - Past Family History Mother Family Medical History: No Reported History Additional Family Medical History / Comment(s): Mother was healthy. She is , pt cannot recall cause of . Father Family Medical History: Pneumonia Additional Family Medical History / Comment(s): Father at the age of 67yrs from pneumonia General Exam Limitations: no limitations General appearance: alert, in no apparent distress Head exam: Present: atraumatic, normocephalic, normal inspection Left Lower Leg exam: Present: normal inspection, full ROM. Absent: tenderness, swelling Ankle exam: Present: normal inspection, full ROM. Absent: tenderness, swelling Foot/Toe exam: Present: normal inspection, full ROM. Absent: tenderness, swelling Neurovascular tendon exam: Present: no vascular compromise. Absent: pulse deficit, abnormal cap refill, motor deficit Course Vital Signs 10/08/24 00:46 Temperature 98.2 F Pulse Rate 67 Respiratory 22 Rate Blood Pressure 156/72 O2 Sat by Pulse 96 Oximetry Medical Decision Making - Medical Decision Making Was pt. sent in by a medical professional or institution (Dr. PA, PHYSICIAN PRACTICE MARKET MANAGER, urgent care, hospital, or prison...) When possible be specific @ -No Did you speak to anyone other than the patient for history (EMS, parent, family, police, friend...)? What history was obtained from this source @ -No Did you review nursing and triage notes (agree or disagree)? Why? @ -I reviewed and agree with nursing and triage notes Were old charts reviewed (outside hosp., previous admission, EMS record, old EKG, old radiological studies, urgent care reports/EKG's, prison records)? Report findings @ -Reviewed ER note and x-ray from yesterday which was negative for acute osseous abnormality Differential Diagnosis (chest pain, altered mental status, abdominal pain women, abdominal pain men, vaginal bleeding, weakness, fever, dyspnea, syncope, headache, dizziness, GI bleed, back pain, seizure, CVA, palpatations, mental health, musculoskeletal)? @ -Differential Musculoskeletal Muscular strain, contusion, ligament sprain, fracture, arthritis, septic arthritis, bursitis, cellulitis, muscle spasm, nerve compression, DVT, arterial occlusion, herpes zoster, electrolyte abnormality, tumor.... This is not meant to be in all inclusive list EKG interpreted by me (3pts min.). @ -As above X-rays interpreted by me (1pt min.). @ -None done CT interpreted by me (1pt min.). @ -None done U/S interpreted by me (1pt. min.). @ -None done What testing was considered but not performed or refused? (CT, X-rays, U/S, labs)? Why? @ -None What meds were considered but not given or refused? Why? @ -None Did you discuss the management of the patient with other professionals (pro fessionals i.e. , PA, PHYSICIAN PRACTICE MARKET MANAGER, lab, RT, psych nurse, social media intern, airframe technician, teacher, executive officer, director of casework services)? Give summary @ -No Was smoking cessation discussed for >3mins.? @ -No Was critical care preformed (if so, how long)? @ -No Were there social determinants of health that impacted care today? How? (Homelessness, low income, unemployed, alcoholism, drug addiction, transportation, low edu. Level, literacy, decrease access to med. care, fpc, rehab)? @ -No Was there de-escalation of care discussed even if they declined (Discuss DNR or withdrawal of care, Hospice)? DNR status @ -No What co-morbidities impacted this encounter? (DM, HTN, Smoking, COPD, CAD, Cancer, CVA, ARF, Chemo, Hep., AIDS, mental health diagnosis, sleep apnea, morbid obesity)? @ -None Was patient admitted / discharged? Hospital course, mention meds given and route, prescriptions, significant lab abnormalities, going to OR and other pertinent info. @ -Discharge. 54-year-old female well-known to the ER presenting for repeat visit for nontraumatic left ankle pain. Neurovascularly intact. No sign of bacterial infection. Patient was diagnosed with ankle sprain yesterday, no new symptoms. Advised to follow-up with PCP and take ibuprofen as needed for pain. Case was discussed with my ED attending Dr. Pérez. Undiagnosed new problem with uncertain prognosis? @ -No Drug Therapy requiring intensive monitoring for toxicity (Heparin, Nitro, Insulin, Cardizem)? @ -No Were any procedures done? @ -No Diagnosis/symptom? @ -Left ankle sprain Acute, or Chronic, or Acute on Chronic? @ -Acute Uncomplicated (without systemic symptoms) or Complicated (systemic symptoms)? @ -Uncomplicated Side effects of treatment? @ -No Exacerbation, Progression, or Severe Exacerbation? @ -No Poses a threat to life or bodily function? How? (Chest pain, [place], [place], pneumonia, PE, COPD, DKA, ARF, appy, cholecystitis, CVA, Diverticulitis, Homicidal, Suicidal, threat to staff... and all critical care pts) @ -No Disposition Clinical Impression: Left ankle sprain Disposition: HOME SELF-CARE Condition: Stable Prescriptions: Ibuprofen [Motrin] 600 mg PO Q8HR PRN #20 tab PRN Reason: Pain Is patient prescribed a controlled substance at d/c from ED?: No Referrals: None,Stated [Primary Care Provider] - 1-2 days Time of Disposition: 01:12
== END 2024-10-08 01:51 | disposition home or self-care (01) ==
LOC: EC 00:11
DX: S93.402A Sprain of unspecified ligament of left ankle, initial encounter (principal); F17.290 Nicotine dependence, other tobacco product, uncomplicated; Z88.1 Allergy status to other antibiotic agents; X58.XXXA Exposure to other specified factors, initial encounter
CPT/HCPCS: 99283

== ENCOUNTER 2024-10-13 16:19 | Emergency (ER) | payer MEDICARE, OTHER ==
[2024-10-13 17:13] VITALS: TEMP 98.4
--- NOTE | 2024-10-13 18:11 | ED ---
URI HPI - General Chief Complaint: Upper Respiratory Infection Stated Complaint: cough,runny nose, sore throat Time Seen by Provider: 10/13/24 17:01 Source: patient, RN notes reviewed, old records reviewed Mode of arrival: EMS Limitations: no limitations - History of Present Illness Initial Comments: This is a 54 female to ER for evaluation of cough congestion runny nose. Patient well-known to this ER for complaints of blood sugar issues pain control. Patient states she is doing well as far as blood sugar and pain but concern for cough and congestion. No fevers. No shortness of breath MD Complaint: cough, sore throat, nasal congestion -: days(s) Severity: mild Severity scale (1-10): 3 Improves With: nothing Worsens With: nothing Context: sick contacts Associated Symptoms: denies other symptoms - Related Data Home Medications Medication Instructions Recorded Confirmed Atorvastatin [Lipitor] 80 mg PO HS 06/25/19 10/16/24 Insulin Aspart [NovoLOG Flexpen] 20 units SQ AC-TID 09/13/24 10/16/24 Insulin Glargine,Hum.rec.anlog 30 unit SQ HS 09/13/24 10/16/24 [Basaglar Kwikpen U-100] Amoxic-Pot Clav 875-125Mg 1 tab PO DIRECTED 10/16/24 10/16/24 [Augmentin 875-125] Previous Rx's Medication Instructions Recorded Famotidine [Pepcid] 20 mg PO DAILY #20 tablet 04/18/24 Aspirin 81 mg PO DAILY #30 tab 09/16/24 Losartan [Cozaar] 25 mg PO DAILY #30 tab 09/16/24 Metoprolol Tartrate [Lopressor] 12.5 mg PO DAILY #30 tab 09/17/24 Magnesium Oxide [Mag-Ox] 400 mg PO DAILY 3 Days #3 tablet 10/04/24 Clopidogrel [Plavix] 75 mg PO DAILY #30 tablet 10/18/24 amLODIPine [Norvasc] 10 mg PO DAILY #30 tab 10/18/24 Allergies Allergy/AdvReac Type Severity Reaction Status Date / Time levofloxacin [From Levaquin] Allergy Rash/Hives Verified 10/23/24 05:55 Review of Systems ROS Statement: Those systems with pertinent positive or pertinent negative responses have been documented in the HPI. ROS Other: All systems not noted in ROS Statement are negative. Past Medical History Past Medical History: Diabetes Mellitus, GERD/Reflux, Hyperlipidemia, Hypertension, Syncope Additional Past Medical History / Comment(s): Pt recently admitted to [facility] on 07/21/21 with uncontrolled IDDM and hyperkalemia. Other hx: Recurrent pancreatitis, hypertriglyceridemia, elevated lipase, IDDM type II, UTI, chronic low back pain, bulging discs, dental abscesses in past. History of Any Multi-Drug Resistant Organisms: MRSA Date of last positivie culture/infection: 03/01/23 MDRO Source:: Abdomen Past Surgical History: Tubal Ligation Additional Past Surgical History / Comment(s): Age 7 had VSD repair, tumor removal 03/2023 Past Anesthesia/Blood Transfusion Reactions: No Reported Reaction Past Psychological History: No Psychological Hx Reported Smoking Status: Former smoker, Second hand smoke exposure, Vaper Past Alcohol Use History: None Reported Past Drug Use History: None Reported - Past Family History Mother Family Medical History: No Reported History Additional Family Medical History / Comment(s): Mother was healthy. She is , pt cannot recall cause of . Father Family Medical History: Pneumonia Additional Family Medical History / Comment(s): Father at the age of 67yrs from pneumonia General Exam Limitations: no limitations General appearance: alert, in no apparent distress Head exam: Present: atraumatic, normocephalic, normal inspection Eye exam: Present: normal appearance, PERRL, EOMI. Absent: scleral icterus, conjunctival injection, periorbital swelling ENT exam: Present: normal exam, mucous membranes moist Neck exam: Present: normal inspection. Absent: tenderness, meningismus, lymphadenopathy Respiratory exam: Present: normal lung sounds bilaterally. Absent: respiratory distress, wheezes, rales, rhonchi, stridor Cardiovascular Exam: Present: regular rate, normal rhythm, normal heart sounds. Absent: systolic murmur, diastolic murmur, rubs, gallop, clicks GI/Abdominal exam: Present: soft, normal bowel sounds. Absent: distended, tenderness, guarding, rebound, rigid Extremities exam: Present: normal inspection, full ROM, normal capillary refill. Absent: tenderness, pedal edema, joint swelling, calf tenderness Back exam: Present: normal inspection Neurological exam: Present: alert, oriented X3, CN II-XII intact Psychiatric exam: Present: normal affect, normal mood Skin exam: Present: warm, dry, intact, normal color. Absent: rash Course Vital Signs 10/13/24 10/13/24 17:11 19:37 Temperature 98.4 F Pulse Rate 68 73 Respiratory 16 18 Rate Blood Pressure 128/84 165/100 O2 Sat by Pulse 98 97 Oximetry - Reevaluation(s) Reevaluation #1: Medical records reviewed Reevaluation #2: Patient symptoms improved Reevaluation #3: Patient informed of results questions answered Reevaluation #4: Was pt. sent in by a medical professional or institution (, ROSALIE, LIVESTOCK AUCTIONEER, urgent care, hospital, or custodial...) When possible be specific @ -no Did you speak to anyone other than the patient for history (EMS, parent, family, police, friend...)? What history was obtained from this source @ -no Did you review nursing and triage notes (agree or disagree)? Why? @ -agree Are old charts reviewed (outside hosp., previous admission, EMS record, old EKG, old radiological studies, urgent care reports/EKG's, custodial records)? Report findings @ -yes Differential Diagnosis (chest pain, altered mental status, abdominal pain women, abdominal pain men, vaginal bleeding, weakness, fever, dyspnea, syncope, headache, dizziness, GI bleed, back pain, seizure, CVA, palpatations, mental health, musculoskeletal)? @ -prior EKG interpreted by me (3pts min.). @ -no X-rays interpreted by me (1pt min.). @ -no CT interpreted by me (1pt min.). @ -no U/S interpreted by me (1pt. min.). @ -no What testing was considered but not performed or refused? (CT, X-rays, U/S, labs)? Why? @ -none What meds were considered but not given or refused? Why? @ -none Did you discuss the management of the patient with other professionals (professionals i.e. ROSALIE Flaherty, LIVESTOCK AUCTIONEER, lab, RT, psych nurse, community mental health social worker, sports lawyer, teacher, chief growth officer, case manager specialist)? Give summary @ -no Was smoking cessation discussed for >3mins.? @ -no Was critical care preformed (if so, how long)? @ -no Were there social determinants of health that impacted care today? How? (Homelessness, low income, unemployed, alcoholism, drug addiction, webster sportation, low edu. Level, literacy, decrease access to med. care, halfway, rehab)? @ -none Was there de-escalation of care discussed even if they declined (Discuss DNR or withdrawal of care, Hospice)? DNR status @ -no What co-morbidities impacted this encounter? (DM, HTN, Smoking, COPD, CAD, Cancer, CVA, ARF, Chemo, Hep., AIDS, mental health diagnosis, sleep apnea, morbid obesity)? @ -none Was patient admitted / discharged? Hospital course, mention meds given and route, prescriptions, significant lab abnormalities, going to OR and other pertinent info. @ - 54 female for acute upper respiratory tract infection. Cough and congestion patient is no acute distress here in the ER woman patient is emergency room but she can be discharged Discharge Undiagnosed new problem with uncertain prognosis? @ -no Drug Therapy requiring intensive monitoring for toxicity (Heparin, Nitro, Insulin, Cardizem)? @ -no Were any procedures done? @ -no Diagnosis/symptom? @ -Upper respiratory infection Acute, or Chronic, or Acute on Chronic? @ -Acute Uncomplicated (without systemic symptoms) or Complicated (systemic symptoms)? @ -Complicated Side effects of treatment? @ -no Exacerbation, Progression, or Severe Exacerbation? @ -exacerbation Poses a threat to life or bodily function? How? (Chest pain, [place], [place], pneumonia, PE, COPD, DKA, ARF, appy, cholecystitis, CVA, Diverticulitis, Homicidal, Mayte cidal, threat to staff... and all critical care pts) @ -no Reevaluation #5: Differential Dyspnea: Coronary syndrome, arrhythmia, tamponade, asthma, COPD, pulmonary embolism, pneumonia, pneumothorax, pulmonary effusion, anaphylaxis, diabetic ketoacidosis, flailed chest, pulmonary contusion, diaphragmatic rupture, anemia, neuromuscular, this is not meant to be an all-inclusive list. Medical Decision Making - Medical Decision Making 54 female for acute upper respiratory tract infection. Cough and congestion patient is no acute distress here in the ER woman patient is emergency room but she can be discharged Disposition Clinical Impression: Otitis media, Pharyngitis, Pneumonia Disposition: HOME SELF-CARE Condition: Good Instructions (If sedation given, give patient instructions): Upper Respiratory Infection (ED), Bacterial Pneumonia (ED) Is patient prescribed a controlled substance at d/c from ED?: No Referrals: None,Stated [Primary Care Provider] - 1-2 days
[2024-10-13 19:40] VITALS: BP 165/100; PULSE 73; RESP 18
[2024-10-13] MEDS: Acetaminophen-Codeine 300-30mg TAB PO STA (19:41)
[2024-10-13] MEDS: AMOXIC-POT CLAV 875-125MG 1 EACH TAB PO STA (19:41)
[2024-10-13] MEDS: ACET/COD 300 MG/30 MG STARTER PACK TAB BTL PO STA (19:42)
== END 2024-10-13 19:46 | disposition home or self-care (01) ==
LOC: EC 16:19
DX: J02.9 Acute pharyngitis, unspecified (principal); J18.9 Pneumonia, unspecified organism; H66.90 Otitis media, unspecified, unspecified ear; J06.9 Acute upper respiratory infection, unspecified; F17.290 Nicotine dependence, other tobacco product, uncomplicated; Z88.1 Allergy status to other antibiotic agents
CPT/HCPCS: 99283

== ENCOUNTER 2024-10-15 19:07 | Observation (INO) | payer MEDICARE, OTHER ==
[2024-10-15] MEDS: NITROGLYCERIN OINT 1 INCH/GM PACKET TOPICAL STA (21:04)
[2024-10-15] MEDS: IBUPROFEN 600 MG TAB PO STA (21:04)
[2024-10-15] MEDS: amLODIPine 10 MG TAB PO STA (22:57)
[2024-10-16 00:01] LABS: Basophils # (A) 0.06 10*3/uL (0.00-0.10); Basophils % (A) 0.7 %; Eosinophils # (A) 0.13 10*3/uL (0.04-0.35); Eosinophils % (A) 1.5 %; HCT 35.9 % (37.2-46.3); HGB 13.3 g/dL (12.0-15.0); Lymphocytes # (A) 3.36 10*3/uL (0.90-5.00); Lymphocytes % (A) 39.2 %; MCH 30.0 pg (27.0-32.0); MCHC 37.0 g/dL (32.0-37.0); MCV 80.9 fL (80.0-97.0); Monocytes # (A) 0.48 10*3/uL (0.20-1.00); Monocytes % (A) 5.6 %; Neutrophils # (A) 4.52 10*3/uL (1.80-7.70); Neutrophils % (A) 52.8 %; Platelet Count 450 10*3/uL (140-440); RBC 4.44 10*6/uL (4.10-5.20); RDW 15.3 % (11.5-14.5); WBC 8.57 10*3/uL (4.50-10.00)
[2024-10-16 00:09] LABS: ALT 17 U/L (4-34); African American GFR (CKD) >90 (>60 ml/min/1.73 sqM); Anion Gap 15 mmol/L; Blood Urea Nitrogen 22 mg/dL (7-17); Calcium 9.7 mg/dL (8.4-10.2); Carbon Dioxide 15 mmol/L (22-30); Chloride 99 mmol/L (98-107); Glucose 419 mg/dL (74-99); Non-African American GFR(CKD) >90 (>60 ml/min/1.73 sqM); Sodium 129 mmol/L (137-145)
[2024-10-16] MEDS ORDERED: NALOXONE 0.4 MG/ML 1 ML VIAL IV PRN (00:16)
--- NOTE | 2024-10-16 00:21 | ED ---
Back Pain HPI - General Chief Complaint: Back Pain/Injury Stated Complaint: back pain Time Seen by Provider: 10/15/24 19:35 Source: EMS Limitations: no limitations - History of Present Illness Initial Comments: 54-year-old female presenting with multiple complaints. Patient is complaining of left thumb pain and discoloration. Patient reports that symptoms started today. She has had no injury or trauma. The thumb is pale and almost appears bruised, though she denies any injuries. States that it also feels cold. She admits to pain in the thumb as well. She is also complaining of lower back pain. Mainly on the right side. No loss of bowel or bladder control or saddle paresthesia. No urinary symptoms, fever, chills, nausea, vomiting. No history of Raynaud's. Patient reports that she did have a heart catheterization at the beginning of September where they used a right sided radial approach. - Related Data Home Medications Medication Instructions Recorded Confirmed Atorvastatin [Lipitor] 80 mg PO HS 06/25/19 09/13/24 Insulin Aspart [NovoLOG Flexpen] 20 units SQ AC-TID 09/13/24 09/13/24 Insulin Glargine,Hum.rec.anlog 35 unit SQ HS 09/13/24 09/13/24 [Basaglar Kwikpen U-100] Previous Rx's Medication Instructions Recorded Famotidine [Pepcid] 20 mg PO DAILY #20 tablet 04/18/24 Aspirin 81 mg PO DAILY #30 tab 09/16/24 Losartan [Cozaar] 25 mg PO DAILY #30 tab 09/16/24 Metoprolol Tartrate [Lopressor] 12.5 mg PO DAILY #30 tab 09/17/24 Magnesium Oxide [Mag-Ox] 400 mg PO DAILY 3 Days #3 tablet 10/04/24 Ibuprofen [Motrin] 600 mg PO Q8HR PRN #20 tab 10/08/24 Amoxic-Pot Clav 875-125Mg 1 tab PO Q12HR #20 tablet 10/13/24 [Augmentin 875-125] Allergies Allergy/AdvReac Type Severity Reaction Status Date / Time levofloxacin [From Levaquin] Allergy Rash/Hives Verified 10/15/24 19:33 Review of Systems ROS Statement: Those systems with pertinent positive or pertinent negative responses have been documented in the HPI. ROS Other: All systems not noted in ROS Statement are negative. Past Medical History Past Medical History: Diabetes Mellitus, GERD/Reflux, Hyperlipidemia, Hypertension, Syncope Additional Past Medical History / Comment(s): Pt recently admitted to [facility] on 07/21/21 with uncontrolled IDDM and hyperkalemia. Other hx: Recurrent pancreatitis, hypertriglyceridemia, elevated lipase, IDDM type II, UTI, chronic low back pain, bulging discs, dental abscesses in past. History of Any Multi-Drug Resistant Organisms: MRSA Date of last positivie culture/infection: 03/01/23 MDRO Source:: Abdomen Past Surgical History: Tubal Ligation Additional Past Surgical History / Comment(s): Age 7 had VSD repair, tumor removal 03/2023 Past Anesthesia/Blood Transfusion Reactions: No Reported Reaction Past Psychological History: No Psychological Hx Reported Smoking Status: Former smoker, Second hand smoke exposure, Vaper Past Alcohol Use History: None Reported Past Drug Use History: None Reported - Past Family History Mother Family Medical History: No Reported History Additional Family Medical History / Comment(s): Mother was healthy. She is , pt cannot recall cause of . Father Family Medical History: Pneumonia Additional Family Medical History / Comment(s): Father at the age of 67yrs from pneumonia General Exam Limitations: no limitations General appearance: alert, in no apparent distress Head exam: Present: atraumatic, normocephalic, normal inspection Eye exam: Present: normal appearance, EOMI Neck exam: Present: normal inspection. Absent: meningismus Respiratory exam: Absent: respiratory distress Cardiovascular Exam: Present: regular rate Right Hand Wrist exam: Present: other (The right thumb is pale and a bit dusky. There is a bit of delayed capillary refill as well.) Vascular: Present: radial pulse (2+) Back exam: Present: normal inspection Neurological exam: Present: alert, oriented X3 Psychiatric exam: Present: normal affect, normal mood Course Vital Signs 10/15/24 10/15/24 10/16/24 19:32 21:00 00:33 Temperature 98 F Pulse Rate 71 68 66 Respiratory 18 19 20 Rate Blood Pressure 125/76 143/101 148/97 O2 Sat by Pulse 96 97 97 Oximetry 10/16/24 02:19 Temperature Pulse Rate 62 Respiratory 17 Rate Blood Pressure 138/72 O2 Sat by Pulse 96 Oximetry Medical Decision Making - Medical Decision Making 54-year-old female presenting with chief complaint of right thumb pain. The thumb is pale and feels cold. She denies injury. She is also complaining of lower back pain with no red flag symptoms. History and physical examination are conducted. The right thumb does feel colder than the left and there does appear to be a small amount of delayed capillary refill. Normal radial pulse. A ttempted to apply topical Nitropaste which did not improve the patient's symptoms. Patient was also given amlodipine. I then had the patient evaluated by my attending Dr. Huynh who was in agreement that the thumb was discolored and a bit colder. Advised that the patient be started on heparin and admitted with vascular surgery consult. Patient is agreeable with this plan. I discussed this case with my attending Dr. Huynh Was pt. sent in by a medical professional or institution (, PA, EMBOSSING PRESS OPERATOR MOLDED GOODS, urgent care, hospital, or skilled nursing...) When possible be specific @ -No Did you speak to anyone other than the patient for history (EMS, parent, family, police, friend...)? What history was obtained from this source @ -No Did you review nursing and triage notes (agree or disagree)? Why? @ -I reviewed and agree with nursing and triage notes Were old charts reviewed (outside hosp., previous admission, EMS record, old EKG, old radiological studies, urgent care reports/EKG's, skilled nursing records)? Report findings @ -No old charts were reviewed Differential Diagnosis (chest pain, altered mental status, abdominal pain women, abdominal pain men, vaginal bleeding, weakness, fever, dyspnea, syncope, headache, dizziness, GI bleed, back pain, seizure, CVA, palpatations, mental health, musculoskeletal)? @ -Differential Musculoskeletal Muscular strain, contusion, ligament sprain, fracture, arthritis, septic arthritis, bursitis, cellulitis, muscle spasm, nerve compression, DVT, arterial occlusion, herpes zoster, electrolyte abnormality, tumor.... This is not meant to be in all inclusive list EKG interpreted by me (3pts min.). @ -As above X-rays interpreted by me (1pt min.). @ -None done CT interpreted by me (1pt min.). @ -None done U/S interpreted by me (1pt. min.). @ -None done What testing was considered but not performed or refused? (CT, X-rays, U/S, labs)? Why? @ -None What meds were considered but not given or refused? Why? @ -None Did you discuss the management of the patient with other professionals (professionals i.e. , PA, EMBOSSING PRESS OPERATOR [employer], lab, RT, psych nurse, professor of social work, touch up worker, teacher, commissioned police officer, manager of case)? Give summary @ -Spoke with Leeanna from [facility] who accepts admission Was smoking cessation discussed for >3mins.? @ -No Was critical care preformed (if so, how long)? @ -No Were there social determinants of health that impacted care today? How? (Homelessness, low income, unemployed, alcoholism, drug addiction, transportation, low edu. Level, literacy, decrease access to med. care, custodial, rehab)? @ -No Was there de-escalation of care discussed even if they declined (Discuss DNR or withdrawal of care, Hospice)? DNR status @ -No What co-morbidities impacted this encounter? (DM, HTN, Smoking, COPD, CAD, Cancer, CVA, ARF, Chemo, Hep., AIDS, mental health diagnosis, sleep apnea, morbid obesity)? @ -None Was patient admitted / discharged? Hospital course, mention meds given and route, prescriptions, significant lab abnormalities, going to OR and other pertinent info. @ -Admitted, see above for details Undiagnosed new problem with uncertain prognosis? @ -No Drug Therapy requiring intensive monitoring for toxicity (Heparin, Nitro, Insulin, Cardizem)? @ -No Were any procedures done? @ -No Diagnosis/symptom? @ -Concern for tissue ischemia of the right thumb Acute, or Chronic, or Acute on Chronic? @ -Acute Uncomplicated (without systemic symptoms) or Complicated (systemic symptoms)? @ -complicated Side effects of treatment? @ -No Exacerbation, Progression, or Severe Exacerbation? @ -No Poses a threat to life or bodily function? How? (Chest pain, [place], [place], pneumonia, PE, COPD, DKA, ARF, appy, cholecystitis, CVA, Diverticulitis, Homicidal, Suicidal, threat to staff... and all critical care pts) @ -Potential - Lab Data Result diagrams: 10/15/24 23:49 10/15/24 23:49 Lab Results 07/10/25 07/10/25 Range/Units 23:49 23:49 WBC 8.57 (4.50-10.00) 10*3/uL RBC 4.44 (4.10-5.20) 10*6/uL Hgb 13.3 (12.0-15.0) g/dL Hct 35.9 L (37.2-46.3) % MCV 80.9 (80.0-97.0) fL MCH 30.0 (27.0-32.0) pg MCHC 37.0 (32.0-37.0) g/dL Plt Count 450 H (140-440) 10*3/uL MPV 9.0 L (9.5-12.2) fL Immature Gran % (Auto) 0.2 % Neutrophils % 52.8 % Lymphocytes % 39.2 % Monocytes % 5.6 % Eosinophils % 1.5 % Basophils % 0.7 % Immature Gran # 0.02 (0.00-0.04) 10*3/uL Neutrophils # 4.52 (1.80-7.70) 10*3/uL Lymphocytes # 3.36 (0.90-5.00) 10*3/uL Monocytes # 0.48 (0.20-1.00) 10*3/uL Eosinophils # 0.13 (0.04-0.35) 10*3/uL Basophils # 0.06 (0.00-0.10) 10*3/uL Sodium 129 L (137-145) mmol/L Potassium 5.0 (3.5-5.1) mmol/L Chloride 99 (98-107) mmol/L Carbon Dioxide 15 L (22-30) mmol/L Anion Gap 15 mmol/L BUN 22 H (7-17) mg/dL Creatinine 0.54 (0.52-1.04) mg/dL Est GFR (CKD-EPI)AfAm >90 (>60 ml/min/1.73 sqM) Est GFR (CKD-EPI)NonAf >90 (>60 ml/min/1.73 sqM) Glucose 419 H (74-99) mg/dL Calcium 9.7 (8.4-10.2) mg/dL Total Bilirubin 0.6 (0.2-1.3) mg/dL AST 28 (14-36) U/L ALT 17 (4-34) U/L Alkaline Phosphatase 127 H (38-126) U/L Total Protein 6.4 (6.3-8.2) g/dL Albumin 3.5 (3.5-5.0) g/dL Disposition Clinical Impression: Ischemia of finger Disposition: ADMITTED IP TO THIS HOSP Condition: Fair Time of Disposition: 00:21
[2024-10-16 00:23] LABS: AST 28 U/L (14-36); Albumin 3.5 g/dL (3.5-5.0); Alkaline Phosphatase 127 U/L (38-126); Potassium 5.0 mmol/L (3.5-5.1); Total Protein 6.4 g/dL (6.3-8.2)
[2024-10-16] MEDS: HEPARIN SOD,PORK IN 0.45% NACL 25,000 UNIT in 0.45% NACL 1 250ML.BAG IV SCH (00:40)
[2024-10-16] MEDS: amLODIPine 10 MG TAB PO STA (00:40)
[2024-10-16] MEDS: SODIUM CHLORIDE 0.9% 1,000 ML IV SCH (00:40)
[2024-10-16] MEDS: HEPARIN SODIUM 1,000 UN/ML (10ML VL) IV ONE (00:43)
[2024-10-16] MEDS ORDERED: DEXTROSE 50% SYRINGE 50 ML IVP PRN (03:08)
[2024-10-16 05:08] LABS: INR 1.0 (<1.2); Partial Thromboplastin Time 54.7 sec (22.0-30.0); Prothrombin Time 10.9 sec (10.0-12.5)
[2024-10-16] MEDS: INSULIN REGULAR 100 UNIT/ML VIAL (IV) IV ONE (05:32)
[2024-10-16 05:35] LABS: Glucose,Whole Blood 429 mg/dL (70-110)
[2024-10-16 07:25] LABS: Glucose,Whole Blood 375 mg/dL (70-110)
--- NOTE | 2024-10-16 07:46 | CT ---
INDICATION: Patient age:Female; 54 years old; Reason for study: thumb dusky; [facility]. COMPARISON: None. TECHNIQUE: Multiple thin slice sub-millimeter images were obtained through the right upper extremity after administration of contrast. Patient was given Isovue 370, 100 cc intravenously. 3-D reconstru cted images and maximum intensity projection images were obtained. One or more CT dose reduction stra tegies were utilized during this examination. Total DLP administered 274.3 mGycm. FINDINGS: The visualized right subclavian artery, right axillary artery, right brachial artery, right ulnar art adolph are intact. The right brachial artery is not entirely included in the [id number]. The visualiz ed portions are intact. Poor opacification of the right radial artery with loss of opacification more distally within the forearm (series 401, image 127). There is a short segment reconstitution more di stally at the wrist. No calcified plaque identified. The great vessels do have a normal appearance. Soft tissues appear unremarkable. No edema or focal muscular atrophy visualized. No acute osseous abn ormality. Sternotomy wires. Linear atelectasis within the lingula. The remaining portions of the lungs are clear. Visualized port ions of the head and neck are unremarkable. IMPRESSION: 1. Poor opacification of the right radial artery with loss of opacification within the forearm enzo rning for occlusion. There is some more distal reconstitution within the wrist. Vascular surgical con sultation is recommended. 2. Remaining right upper extremity visualized arterial vasculature is widely patent. [facility], , 10/16/2024 7:44 AM
[2024-10-16] MEDS: INSULIN LISPRO (HumaLOG) 100 UNIT/ML 10 mL VL SQ SCH (07:51)
[2024-10-16 08:54] LABS: HCT 38.2 % (37.2-46.3); HGB 13.1 g/dL (12.0-15.0); MCH 28.5 pg (27.0-32.0); MCHC 34.3 g/dL (32.0-37.0); MCV 83.0 FL (80.0-97.0); NRBC Per 100 WBC 0 X 10*3/uL (0.00-0.01); Platelet Count 470 X 10*3/uL (140-440); RBC 4.60 X 10*6/uL (4.10-5.20); RDW 15.4 % (11.5-14.5); WBC 10.70 X 10*3/uL (4.50-10.00)
[2024-10-16 10:16] LABS: Anion Gap 16.40 mmol/L (4.00-12.00); BUN/Creat Ratio 27.71 Ratio (12.00-20.00); Blood Urea Nitrogen 19.4 mg/dL (9.0-27.0); Calcium 9.2 mg/dL (8.7-10.3); Carbon Dioxide 16.6 mmol/L (21.6-31.8); Chloride 97 mmol/L (96-109); Glucose 438 mg/dL (70-110); Potassium 4.6 mmol/L (3.5-5.5); Sodium 130 mmol/L (135-145)
[2024-10-16] MEDS ORDERED: ACETAMINOPHEN TAB 325 MG TAB PO PRN (10:26)
[2024-10-16 12:27] LABS: Glucose,Whole Blood 63 mg/dL (70-110)
[2024-10-16] MEDS: DEXTROSE 50% SYRINGE 50 ML IVP PRN (12:31)
[2024-10-16] MEDS: HYDROmorphone 1 MG/ML 1 ML SYRINGE IVP PRN (13:01)
[2024-10-16 13:03] LABS: Glucose,Whole Blood 133 mg/dL (70-110)
[2024-10-16 14:25] LABS: Glucose,Whole Blood 100 mg/dL (70-110)
--- NOTE | 2024-10-16 15:38 | P.HPIM ---
History of Present Illness H&P Date: 10/16/24 This is a 54 year old female who presents with one day history of right sided thumb pain and discoloration. She has decreaesd capillary refill and the thumb is tender to touch when she presented to the ER. Had a right radial cardiac catheterization in September of 2024 which was done here with no immediate complications. 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 CT scan of the upper extremity reveals vascular occlustion and patient has been started on IV heparin protocol and pending evaluation by vascular surgery. Patient was started on IV heparin. On evaluation thumb is tender to palpate however does have good capillary refill and palpable radial and brachial pulse. White blood cell count 8.57, sodium 129, potassium 5.0, BUN 22, creatinine 0.54, alk phos 127. Admitted in observation REVIEW OF SYSTEMS: CONSTITUTIONAL: No fever, no malaise, no fatigue. HEENT: No recent visual problems or hearing problems. Denied any sore throat. CARDIOVASCULAR: No chest pain, orthopnea, PND, no palpitations, no syncope. PULMONARY: No shortness of breath, no cough, no hemoptysis. GASTROINTESTINAL: No diarrhea, no nausea, no vomiting, no abdominal pain. NEUROLOGICAL: No headaches, no weakness, no numbness. HEMATOLOGICAL: Denies any bleeding or petechiae. GENITOURINARY: Denies any burning micturition, frequency, or urgency. MUSCULOSKELETAL/RHEUMATOLOGICAL: Denies any joint pain, swelling, or any muscle pain. ENDOCRINE: Denies any polyuria or polydipsia. The rest of the 14-point review of systems is negative. PHYSICAL EXAMINATION: GENERAL: The patient is alert and oriented x3, not in any acute distress. Well developed, well nourished. HEENT: Pupils are round and equally reacting to light. EOMI. No scleral icterus. No conjunctival pallor. Normocephalic, atraumatic. No pharyngeal erythema. No thyromegaly. CARDIOVASCULAR: S1 and S2 present. No murmurs, rubs, or gallops. PULMONARY: Chest is clear to auscultation, no wheezing or crackles. ABDOMEN: Soft, nontender, nondistended, normoactive bowel sounds. No palpable organomegaly. MUSCULOSKELETAL: No joint swelling or deformity. EXTREMITIES: No cyanosis, clubbing, or pedal edema. NEUROLOGICAL: Gross neurological examination did not reveal any focal deficits. SKIN: No rashes. Assessment Ischemic right thumb Poor opacification of the right radial artery with loss of opacification within the forearm concerning for occlusion. Distal reconstitution within the wrist Coronary artery disease with recent catheterization; medically optimized. Cath was a right radial approach. Diabetes Mellitus type 2 Hypertension Hyperlipidemia Obesity GI prophylaxis DVT prophylaxis Full Code Plan Continue IV heparin Pending vascular surgery consultation Continue sliding scale accuchecks ACHS Continue normal saline at 75 mls/hr Resume home medications The impression and plan of care has been dictated by Leeanna Francisco, Nurse Practitioner as directed. Dr. Dre MD I have performed a history and physical examination and medical decision making of this patient, discussed the same with the dictator, and agree with the d ictators assessment and plan as written, documented as a scribe. Based on total visit time, I have performed more than 50% of this visit. Past Medical History Past Medical History: Diabetes Mellitus, GERD/Reflux, Hyperlipidemia, Hypertension, Syncope Additional Past Medical History / Comment(s): Pt recently admitted to [facility] on 07/21/21 with uncontrolled IDDM and hyperkalemia. Other hx: Recurrent pancreatitis, hypertriglyceridemia, elevated lipase, IDDM type II, UTI, chronic low back pain, bulging discs, dental abscesses in past. History of Any Multi-Drug Resistant Organisms: MRSA Date of last positivie culture/infection: 03/01/23 MDRO Source:: Abdomen Past Surgical History: Tubal Ligation Additional Past Surgical History / Comment(s): Age 7 had VSD repair, tumor removal 03/2023 Past Anesthesia/Blood Transfusion Reactions: No Reported Reaction Past Psychological History: No Psychological Hx Reported Smoking Status: Former smoker, Second hand smoke exposure, Vaper Past Alcohol Use History: None Reported Past Drug Use History: None Reported - Past Family History Mother Family Medical History: No Reported History Additional Family Medical History / Comment(s): Mother was healthy. She is , pt cannot recall cause of . Father Family Medical History: Pneumonia Additional Family Medical History / Comment(s): Father at the age of 67yrs from pneumonia Medications and Allergies Home Medications Medication Instructions Recorded Confirmed Type Atorvastatin [Lipitor] 80 mg PO HS 06/25/19 10/16/24 History Famotidine [Pepcid] 20 mg PO DAILY #20 tablet 04/18/24 10/16/24 Rx Insulin Aspart [NovoLOG Flexpen] 20 units SQ AC-TID 09/13/24 10/16/24 History Insulin Glargine,Hum.rec.anlog 30 unit SQ HS 09/13/24 10/16/24 History [Basaglar Kwikpen U-100] Aspirin 81 mg PO DAILY #30 tab 09/16/24 10/16/24 Rx Losartan [Cozaar] 25 mg PO DAILY #30 tab 09/16/24 10/16/24 Rx Metoprolol Tartrate [Lopressor] 12.5 mg PO DAILY #30 tab 09/17/24 10/16/24 Rx Magnesium Oxide [Mag-Ox] 400 mg PO DAILY 3 Days #3 tablet 10/04/24 10/16/24 Rx Ibuprofen [Motrin] 600 mg PO Q8HR PRN #20 tab 10/08/24 10/16/24 Rx Amoxic-Pot Clav 875-125Mg 1 tab PO DIRECTED 10/16/24 10/16/24 History [Augmentin 875-125] Allergies Allergy/AdvReac Type Severity Reaction Status Date / Time levofloxacin [From Levaquin] Allergy Rash/Hives Verified 10/16/24 10:35 Physical Exam Vitals: Vital Signs Temp Pulse Resp BP Pulse Ox 10/16/24 07:23 59 L 17 131/65 96 10/16/24 05:00 97.1 F L 66 15 136/82 97 10/16/24 02:19 62 17 138/72 96 10/16/24 00:33 66 20 148/97 97 10/15/24 21:00 68 19 143/101 97 10/15/24 19:32 98 F 71 18 125/76 96 Intake and Output 10/15/24 10/16/24 10/16/24 22:59 06:59 14:59 Other: Weight 81.647 kg Results CBC & Chem 7: 10/16/24 04:21 10/16/24 04:21 Labs: Abnormal Lab Results - Last 24 Hours (Table) 10/15/24 10/15/24 10/16/24 Range/Units 23:49 23:49 04:21 WBC (4.50-10.00) X 10*3/uL Hct 35.9 L (37.2-46.3) % RDW (11.5-14.5) % Plt Count 450 H (140-440) 10*3/uL MPV 9.0 L (9.5-12.2) fL APTT 54.7 H (22.0-30.0) sec Sodium 129 L (137-145) mmol/L Carbon Dioxide 15 L (22-30) mmol/L Anion Gap (4.00-12.00) mmol/L BUN 22 H (7-17) mg/dL BUN/Creatinine Ratio (12.00-20.00) Ratio Glucose 419 H (74-99) mg/dL POC Glucose (mg/dL) (70-110) mg/dL Alkaline Phosphatase 127 H (38-126) U/L 10/16/24 10/16/24 10/16/24 Range/Units 04:21 04:21 05:28 WBC 10.70 H (4.50-10.00) X 10*3/uL Hct (37.2-46.3) % RDW 15.4 H (11.5-14.5) % Plt Count 470 H (140-440) 10*3/uL MPV (9.5-12.2) fL APTT (22.0-30.0) sec Sodium 130 L (137-145) mmol/L Carbon Dioxide 16.6 L (22-30) mmol/L Anion Gap 16.40 H (4.00-12.00) mmol/L BUN (7-17) mg/dL BUN/Creatinine Ratio 27.71 H (12.00-20.00) Ratio Glucose 438 H (74-99) mg/dL POC Glucose (mg/dL) 429 H (70-110) mg/dL Alkaline Phosphatase (38-126) U/L 10/16/24 Range/Units 07:22 WBC (4.50-10.00) X 10*3/uL Hct (37.2-46.3) % RDW (11.5-14.5) % Plt Count (140-440) 10*3/uL MPV (9.5-12.2) fL APTT (22.0-30.0) sec Sodium (137-145) mmol/L Carbon Dioxide (22-30) mmol/L Anion Gap (4.00-12.00) mmol/L BUN (7-17) mg/dL BUN/Creatinine Ratio (12.00-20.00) Ratio Glucose (74-99) mg/dL POC Glucose (mg/dL) 375 H (70-110) mg/dL Alkaline Phosphatase (38-126) U/L Assessment and Plan Time with Patient: Less than 30
--- NOTE | 2024-10-16 15:56 | P.GSCN ---
History of Present Illness Consult date: 10/16/24 Reason for Consult: Right thumb ischemia History of present illness: Is a 54-year-old female who recently underwent a right heart catheterization via approximately 3 days ago she began to experience some right thumb discomfort. She denies any known trauma to the area. No previous similar symptoms. Is a non-smoker although did have a significant tobacco use history. Past Medical History Past Medical History: Diabetes Mellitus, GERD/Reflux, Hyperlipidemia, Hypertension, Syncope Additional Past Medical History / Comment(s): Pt recently admitted to [facility] on 07/21/21 with uncontrolled IDDM and hyperkalemia. Other hx: Recurrent pancreatitis, hypertriglyceridemia, elevated lipase, IDDM type II, UTI, chronic low back pain, bulging discs, dental abscesses in past. History of Any Multi-Drug Resistant Organisms: MRSA Year Discovered:: 03/01/23 MDRO Source:: Abdomen Past Surgical History: Tubal Ligation Additional Past Surgical History / Comment(s): Age 7 had VSD repair, tumor removal 03/2023 Past Anesthesia/Blood Transfusion Reactions: No Reported Reaction Past Psychological History: No Psychological Hx Reported Smoking Status: Former smoker, Second hand smoke exposure, Vaper Past Alcohol Use History: None Reported Past Drug Use History: None Reported - Past Family History Mother Family Medical History: No Reported History Additional Family Medical History / Comment(s): Mother was healthy. She is , pt cannot recall cause of . Father Family Medical History: Pneumonia Additional Family Medical History / Comment(s): Father at the age of 67yrs from pneumonia Medications and Allergies Home Medications Medication Instructions Recorded Confirmed Type Atorvastatin [Lipitor] 80 mg PO HS 06/25/19 10/16/24 History Famotidine [Pepcid] 20 mg PO DAILY #20 tablet 04/18/24 10/16/24 Rx Insulin Aspart [NovoLOG Flexpen] 20 units SQ AC-TID 09/13/24 10/16/24 History Insulin Glargine,Hum.rec.anlog 30 unit SQ HS 09/13/24 10/16/24 History [Basaglar Kwikpen U-100] Aspirin 81 mg PO DAILY #30 tab 09/16/24 10/16/24 Rx Losartan [Cozaar] 25 mg PO DAILY #30 tab 09/16/24 10/16/24 Rx Metoprolol Tartrate [Lopressor] 12.5 mg PO DAILY #30 tab 09/17/24 10/16/24 Rx Magnesium Oxide [Mag-Ox] 400 mg PO DAILY 3 Days #3 tablet 10/04/24 10/16/24 Rx Ibuprofen [Motrin] 600 mg PO Q8HR PRN #20 tab 10/08/24 10/16/24 Rx Amoxic-Pot Clav 875-125Mg 1 tab PO DIRECTED 10/16/24 10/16/24 History [Augmentin 875-125] Allergies Allergy/AdvReac Type Severity Reaction Status Date / Time levofloxacin [From Levaquin] Allergy Rash/Hives Verified 10/16/24 10:35 Surgical - Exam Osteopathic Statement: *. No significant issues noted on an osteopathic structural exam other than those noted in the History and Physical/Consult. Vital Signs Temp Pulse Resp BP Pulse Ox 98 F 71 18 125/76 96 10/15/24 19:32 10/15/24 19:32 10/15/24 19:32 10/15/24 19:32 10/15/24 19:32 Patient Seen Date: 10/16/24 Patient Seen Time: 15:30 Patient is awake, alert and in no apparent distress. No carotid bruits are noted. Axillary, brachial, radial and ulnar pulses present bilaterally range of motion of all 5 digits of the right hand modest dusky discoloration of the thumb on the right is noted. No open wounds are noted. Femoral, popliteal, DP and PT pulses are intact bilaterally. Abdomen is soft and benign. Results - Labs 10/16/24 04:21 10/16/24 04:21 Abnormal Lab Results - Last 24 Hours (Table) 10/15/24 10/15/24 10/16/24 Range/Units 23:49 23:49 04:21 WBC (4.50-10.00) X 10*3/uL Hct 35.9 L (37.2-46.3) % RDW (11.5-14.5) % Plt Count 450 H (140-440) 10*3/uL MPV 9.0 L (9.5-12.2) fL APTT 54.7 H (22.0-30.0) sec Sodium 129 L (137-145) mmol/L Carbon Dioxide 15 L (22-30) mmol/L Anion Gap (4.00-12.00) mmol/L BUN 22 H (7-17) mg/dL BUN/Creatinine Ratio (12.00-20.00) Ratio Glucose 419 H (74-99) mg/dL POC Glucose (mg/dL) (70-110) mg/dL Alkaline Phosphatase 127 H (38-126) U/L 10/16/24 10/16/24 10/16/24 Range/Units 04:21 04:21 05:28 WBC 10.70 H (4.50-10.00) X 10*3/uL Hct (37.2-46.3) % RDW 15.4 H (11.5-14.5) % Plt Count 470 H (140-440) 10*3/uL MPV (9.5-12.2) fL APTT (22.0-30.0) sec Sodium 130 L (137-145) mmol/L Carbon Dioxide 16.6 L (22-30) mmol/L Anion Gap 16.40 H (4.00-12.00) mmol/L BUN (7-17) mg/dL BUN/Creatinine Ratio 27.71 H (12.00-20.00) Ratio Glucose 438 H (74-99) mg/dL POC Glucose (mg/dL) 429 H (70-110) mg/dL Alkaline Phosphatase (38-126) U/L 10/16/24 10/16/24 10/16/24 Range/Units 07:22 12:24 12:59 WBC (4.50-10.00) X 10*3/uL Hct (37.2-46.3) % RDW (11.5-14.5) % Plt Count (140-440) 10*3/uL MPV (9.5-12.2) fL APTT (22.0-30.0) sec Sodium (137-145) mmol/L Carbon Dioxide (22-30) mmol/L Anion Gap (4.00-12.00) mmol/L BUN (7-17) mg/dL BUN/Creatinine Ratio (12.00-20.00) Ratio Glucose (74-99) mg/dL POC Glucose (mg/dL) 375 H 63 L 133 H (70-110) mg/dL Alkaline Phosphatase (38-126) U/L Diabetes panel 10/15/24 10/16/24 Range/Units 23:49 04:21 Sodium 129 L 130 L (137-145) mmol/L Potassium 5.0 4.6 (3.5-5.1) mmol/L Chloride 99 97 (98-107) mmol/L Carbon Dioxide 15 L 16.6 L (22-30) mmol/L BUN 22 H 19.4 (7-17) mg/dL Creatinine 0.54 0.7 (0.52-1.04) mg/dL Glucose 419 H 438 H (74-99) mg/dL Calcium 9.7 9.2 (8.4-10.2) mg/dL AST 28 (14-36) U/L ALT 17 (4-34) U/L Alkaline Phosphatase 127 H (38-126) U/L Total Protein 6.4 (6.3-8.2) g/dL Albumin 3.5 (3.5-5.0) g/dL Calcium panel 10/15/24 10/16/24 Range/Units 23:49 04:21 Calcium 9.7 9.2 (8.4-10.2) mg/dL Albumin 3.5 (3.5-5.0) g/dL Pituitary panel 10/15/24 10/16/24 Range/Units 23:49 04:21 Sodium 129 L 130 L (137-145) mmol/L Potassium 5.0 4.6 (3.5-5.1) mmol/L Chloride 99 97 (98-107) mmol/L Carbon Dioxide 15 L 16.6 L (22-30) mmol/L BUN 22 H 19.4 (7-17) mg/dL Creatinine 0.54 0.7 (0.52-1.04) mg/dL Glucose 419 H 438 H (74-99) mg/dL Calcium 9.7 9.2 (8.4-10.2) mg/dL Adrenal panel 10/15/24 10/16/24 Range/Units 23:49 04:21 Sodium 129 L 130 L (137-145) mmol/L Potassium 5.0 4.6 (3.5-5.1) mmol/L Chloride 99 97 (98-107) mmol/L Carbon Dioxide 15 L 16.6 L (22-30) mmol/L BUN 22 H 19.4 (7-17) mg/dL Creatinine 0.54 0.7 (0.52-1.04) mg/dL Glucose 419 H 438 H (74-99) mg/dL Calcium 9.7 9.2 (8.4-10.2) mg/dL Total Bilirubin 0.6 (0.2-1.3) mg/dL AST 28 (14-36) U/L ALT 17 (4-34) U/L Alkaline Phosphatase 127 H (38-126) U/L Total Protein 6.4 (6.3-8.2) g/dL Albumin 3.5 (3.5-5.0) g/dL - Imaging Additional studies: CTA of the right upper extremity is reviewed. Assessment and Plan Assessment: 1: Suspected microembolization affecting the right thumb. 2: Status post cardiac catheterization. 3: History of tobacco abuse prior. Plan: 1: Will order arterial Doppler study of the upper extremity with digit there and waveforms. 2: Will begin Nitropaste to the thumb. 3: Further recommendations are forthcoming but I suspect this should resolve of its own accord. There is no surgical intervention anticipated at this time.
[2024-10-16] MEDS: HYDROcodone/APAP 5-325MG 1 EACH TAB PO PRN (16:22)
[2024-10-16] MEDS: NITROGLYCERIN OINT 1 INCH/GM PACKET TOPICAL SCH (16:23)
[2024-10-16] MEDS: FAMOTIDINE 20 MG TAB PO SCH (16:23)
[2024-10-16] MEDS: LOSARTAN 25 MG TAB PO SCH (16:23)
[2024-10-16] MEDS: ASPIRIN 81 MG PO SCH (16:23)
[2024-10-16] MEDS: METOPROLOL TARTRATE 12.5 MG TAB PO SCH (16:25)
--- NOTE | 2024-10-16 16:37 | US ---
EXAMINATION TYPE: US arterial UE multi level DATE OF EXAM: 10/16/2024 4:21 PM CLINICAL INDICATION: Female, 54 years old with history of digital ischemia; pain and numbness right t humb. TECHNIQUE: Systolic pressures were taken of the upper extremity arteries with wrist brachial indices calculated. History of: Smoker: No Hypertension: Yes Diabetic: Yes Hyperlipidemia: Yes TIA/CVA: No Previous Vascular Surgery: Yes CAD: No [place]: No Vascular Ulcers: No Claudication: No Gangrene: No FINDINGS: Doppler Waveforms: Right: Brachial: Biphasic Radial: Biphasic Ulnar: Monophasic Left: Brachial: Biphasic Radial: Biphasic Ulnar: Monophasic Right: Brachial: 151 Radial artery: 146 Ulnar Artery: 159 Left: Brachial: 155 Radial artery: 166 Ulnar Artery: 158 Wrist Brachial Indices: Right: 1.03 Left: 1.07 IMPRESSION: Normal bilateral wrist brachial industries. [facility], , 10/16/2024 4:35 PM
[2024-10-16 17:31] LABS: Glucose,Whole Blood 126 mg/dL (70-110)
[2024-10-16] MEDS: amLODIPine 10 MG TAB PO SCH (17:51)
[2024-10-16 19:38] LABS: Glucose,Whole Blood 204 mg/dL (70-110)
[2024-10-16] MEDS: ATORVASTATIN 80 MG TAB PO SCH (21:45)
[2024-10-16] MEDS: INSULIN GLARGINE (LANTUS) 100 UNIT/ML SYR SQ SCH (21:46)
[2024-10-17 05:50] LABS: Glucose,Whole Blood 285 mg/dL (70-110)
[2024-10-17] MEDS: INSULIN GLARGINE (LANTUS) 100 UNIT/ML SYR SQ SCH (06:34)
[2024-10-17 08:45] LABS: Basophils # (A) 0.06 X 10*3/uL (0.00-0.10); Basophils % (A) 0.7 %; Eosinophils # (A) 0.12 X 10*3/uL (0.04-0.35); Eosinophils % (A) 1.5 %; HCT 35.2 % (37.2-46.3); HGB 11.4 g/dL (12.0-15.0); Immature Grans, Automated 0.50 %; Lymphocytes # (A) 3.97 X 10*3/uL (0.90-5.00); Lymphocytes % (A) 48.9 %; MCH 27.3 pg (27.0-32.0); MCHC 32.4 g/dL (32.0-37.0); MCV 84.2 FL (80.0-97.0); Monocytes # (A) 0.38 X 10*3/uL (0.20-1.00); Monocytes % (A) 4.7 %; NRBC Per 100 WBC 0 X 10*3/uL (0.00-0.01); Neutrophils # (A) 3.55 X 10*3/uL (1.80-7.70); Neutrophils % (A) 43.7 %; Platelet Count 412 X 10*3/uL (140-440); RBC 4.18 X 10*6/uL (4.10-5.20); RDW 15.6 % (11.5-14.5); WBC 8.12 X 10*3/uL (4.50-10.00)
[2024-10-17] MEDS: MAGNESIUM OXIDE 400 MG TAB PO SCH (08:51)
[2024-10-17 11:31] LABS: Anion Gap 17.10 mmol/L (4.00-12.00); BUN/Creat Ratio 19.57 Ratio (12.00-20.00); Blood Urea Nitrogen 13.7 mg/dL (9.0-27.0); Calcium 7.7 mg/dL (8.7-10.3); Carbon Dioxide 15.9 mmol/L (21.6-31.8); Chloride 104 mmol/L (96-109); Glucose 297 mg/dL (70-110); Potassium 4.2 mmol/L (3.5-5.5); Sodium 137 mmol/L (135-145)
[2024-10-17 12:51] LABS: Glucose,Whole Blood 280 mg/dL (70-110)
[2024-10-17 17:39] LABS: Glucose,Whole Blood 211 mg/dL (70-110)
[2024-10-17 20:08] LABS: Glucose,Whole Blood 174 mg/dL (70-110)
--- NOTE | 2024-10-17 23:10 | P.PN ---
Subjective Progress Note Date: 10/17/24 This is a 54 year old female who presents with one day history of right sided thumb pain and discoloration. She has decreaesd capillary refill and the thumb is tender to touch when she presented to the ER. Had a right radial cardiac catheterization in September of 2024 which was done here with no immediate comp lications. 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 CT scan of the upper extremity reveals vascular occlustion and patient has been started on IV heparin protocol and pending evaluation by vascular surgery. Patient was started on IV heparin. On evaluation thumb is tender to palpate however does have good capillary refill and palpable radial and brachial pulse. White blood cell count 8.57, sodium 129, potassium 5.0, BUN 22, creatinine 0.54, alk phos 127. Admitted in observation 10/17/2024 On follow up evaluation patients thumb remains tender to palpation, does have capillary refill of less than 3. Vascular surgery has evaluated the patient and felt patient has microembolization from the recent cardiac catheterization and felt to be self limiting. Upper extremity venous ultrasound on the right reveals normal bilateral wrist brachial indices. Patient remains on IV heparin. Nitropaste was applied to thumb last night however patient states did not tolerate well and her thumb became itchy. REVIEW OF SYSTEMS: CONSTITUTIONAL: No fever, no malaise, no fatigue. HEENT: No recent visual problems or hearing problems. Denied any sore throat. CARDIOVASCULAR: No chest pain, orthopnea, PND, no palpitations, no syncope. PULMONARY: No shortness of breath, no cough, no hemoptysis. GASTROINTESTINAL: No diarrhea, no nausea, no vomiting, no abdominal pain. NEUROLOGICAL: No headaches, no weakness, no numbness. PHYSICAL EXAMINATION: GENERAL: The patient is alert and oriented x3, not in any acute distress. Well developed, well nourished. HEENT: Pupils are round and equally reacting to light. EOMI. No scleral icterus. No conjunctival pallor. Normocephalic, atraumatic. No pharyngeal erythema. No thyromegaly. CARDIOVASCULAR: S1 and S2 present. No murmurs, rubs, or gallops. PULMONARY: Chest is clear to auscultation, no wheezing or crackles. ABDOMEN: Soft, nontender, nondistended, normoactive bowel sounds. No palpable organomegaly. MUSCULOSKELETAL: No joint swelling or deformity. EXTREMITIES: No cyanosis, clubbing, or pedal edema. NEUROLOGICAL: Gross neurological examination did not reveal any focal deficits. SKIN: No rashes. Assessment Ischemic right thumb felt to be due to microembolization from recent catheterization from the right radial approach. Poor opacification of the right radial artery with loss of opacification within the forearm concerning for occlusion. Distal reconstitution within the wrist Coronary artery disease with recent catheterization; medically optimized. Cath was a right radial approach. Diabetes Mellitus type 2 Hx of reynauds Hypertension Hyperlipidemia Obesity GI prophylaxis DVT prophylaxis Full Code Plan Continue IV heparin Pending further recommendations from vascular Continue sliding scale accuchecks ACHS Continue normal saline at 75 mls/hr Amlodipine has been added for vasospasm prophylaxis Resume home medications D/C home in the next 24 hours The impression and plan of care has been dictated by Leeanna Francisco, Nurse Practitioner as directed. Dr. Dre MD I have performed a history and physical examination and medical decision making of this patient, discussed the same with the dictator, and agree with the dictators assessment and plan as written, documented as a scribe. Based on total visit time, I have performed more than 50% of this visit. Objective - Vital Signs Vital signs: Vital Signs Temp 98.0 F 10/17/24 12:51 Pulse 43 L 10/17/24 12:51 Resp 16 10/17/24 12:51 BP 162/83 10/17/24 12:51 Pulse Ox 97 10/17/24 12:51 FiO2 Intake & Output 10/16/24 10/17/24 10/17/24 18:59 06:59 18:59 Intake Total 446.601 1580 Balance 524.155 7565 Weight 81.647 kg Intake: Intake, IV Titration 768.704 0405 Amount Heparin Sod,Pork in 0.45% 245.178 250 NaCl 25,000 unit In 0.45 % NaCl 1 250ml.bag @ 18 UNITS/KG/HR 14.696 mls/hr IV .[id number] YARON Rx#: [id number] Sodium Chloride 0.9% 1, 900 000 ml @ 75 mls/hr IV . [id number] YARON Rx#:[id number] Oral 118 236 Other: # Voids 2 2 # Bowel Movements 0 - Labs CBC & Chem 7: 10/17/24 04:36 10/17/24 04:36 Labs: Abnormal Lab Results - Last 24 Hours (Table) 10/16/24 10/16/24 10/17/24 Range/Units 17:30 19:37 04:36 Hgb 11.4 L (12.0-15.0) g/dL Hct 35.2 L (37.2-46.3) % RDW 15.6 H (11.5-14.5) % APTT (22.0-30.0) sec Carbon Dioxide (21.6-31.8) mmol/L Anion Gap (4.00-12.00) mmol/L Glucose (70-110) mg/dL POC Glucose (mg/dL) 126 H 204 H (70-110) mg/dL Calcium (8.7-10.3) mg/dL 10/17/24 10/17/24 10/17/24 Range/Units 04:36 04:36 05:49 Hgb (12.0-15.0) g/dL Hct (37.2-46.3) % RDW (11.5-14.5) % APTT 46.5 H (22.0-30.0) sec Carbon Dioxide 15.9 L (21.6-31.8) mmol/L Anion Gap 17.10 H (4.00-12.00) mmol/L Glucose 297 H (70-110) mg/dL POC Glucose (mg/dL) 285 H (70-110) mg/dL Calcium 7.7 L (8.7-10.3) mg/dL 10/17/24 Range/Units 12:50 Hgb (12.0-15.0) g/dL Hct (37.2-46.3) % RDW (11.5-14.5) % APTT (22.0-30.0) sec Carbon Dioxide (21.6-31.8) mmol/L Anion Gap (4.00-12.00) mmol/L Glucose (70-110) mg/dL POC Glucose (mg/dL) 280 H (70-110) mg/dL Calcium (8.7-10.3) mg/dL Assessment and Plan Time with Patient: Less than 30
[2024-10-18 05:49] LABS: Glucose,Whole Blood 210 mg/dL (70-110)
[2024-10-18 08:12] VITALS: BP 117/65; PULSE 54; RESP 16; TEMP 98.2
[2024-10-18 09:09] LABS: African American GFR (CKD) >90 (>60 ml/min/1.73 sqM); Anion Gap 11 mmol/L; Blood Urea Nitrogen 13 mg/dL (7-17); Calcium 8.4 mg/dL (8.4-10.2); Carbon Dioxide 19 mmol/L (22-30); Chloride 106 mmol/L (98-107); Glucose 221 mg/dL (74-99); Non-African American GFR(CKD) >90 (>60 ml/min/1.73 sqM); Potassium 5.0 mmol/L (3.5-5.1); Sodium 136 mmol/L (137-145)
[2024-10-18] MEDS: HEPARIN SODIUM 1,000 UN/ML (10ML VL) IV PRN (10:02)
[2024-10-18 12:13] LABS: Glucose,Whole Blood 292 mg/dL (70-110)
[2024-10-18] MEDS: CLOPIDOGREL 75 MG TAB PO STA (14:56)
--- NOTE | 2024-10-21 16:33 | P.DS ---
Providers Date of admission: 10/16/24 00:20 Attending physician: Kannan Lundberg Consults: 10/16/24 00:16 Consult Physician Urgent Consulting Provider: Diallo Crenshaw Consult Reason/Comments: Concern for Raynaud's of right thumb not responsive to topicals & oral tmt Do you want consulting provider notified?: Yes, Notify in am Primary care physician: Stated None Hospital Course: Final Diagnosis Ischemic right thumb felt to be due to microembolization from recent catheterization from the right radial approach. Poor opacification of the right radial artery with loss of opacification within the forearm concerning for occlusion. Distal reconstitution within the wrist Coronary artery disease with recent catheterization; medically optimized. Cath was a right radial approach. Diabetes Mellitus type 2 Hx of reynauds Hypertension Hyperlipidemia Obesity GI prophylaxis DVT prophylaxis Full Code Discharge Disposition Patient stable for discharge home. Patient has been started on amlodipine calcium channel maritza 10 mg daily as well as Plavix 75 mg daily. Patient to follow-up with vascular surgery on discharge. Hospital Course This is a 54 year old female who presents with one day history of right sided thumb pain and discoloration. She has decreaesd capillary refill and the thumb is tender to touch when she presented to the ER. Had a right radial cardiac catheterization in September of 2024 which was done here with no immediate complications. 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 CT scan of the upper extremity reveals vascular occlustion and patient has been started on IV heparin protocol and pending evaluation by vascular surgery. Patient was started on IV heparin. On evaluation thumb is tender to palpate however does have good capil jhony refill and palpable radial and brachial pulse. White blood cell count 8.57, sodium 129, potassium 5.0, BUN 22, creatinine 0.54, alk phos 127. Admitted in observation Vascular surgery has evaluated the patient and felt patient has microembolization from the recent cardiac catheterization and felt to be self limiting. Upper extremity venous ultrasound on the right reveals normal bilateral wrist brachial indices. Patient remains on IV heparin. Nitropaste was applied to thumb last night however patient states did not tolerate well and her thumb became itchy. Patient will be discharged home on recommendations of vascular surgery with aspirin and Plavix. Please see medication reconciliation for a list of current medications. Thank you for allowing us to participate in the care of this patient. The impression and plan of care has been dictated by Leeanna Francisco, Nurse Practitioner as directed. Dr. Dre MD I have performed a history and physical examination and medical decision making of this patient, discussed the same with the dictator, and agree with the dictators assessment and plan as written, documented as a scribe. Based on total visit time, I have performed more than 50% of this visit. Patient Condition at Discharge: Fair Plan - Discharge Summary Discharge Rx Participant: No New Discharge Prescriptions: New amLODIPine [Norvasc] 10 mg PO DAILY #30 tab Clopidogrel [Plavix] 75 mg PO DAILY #30 tablet Continue Atorvastatin [Lipitor] 80 mg PO HS Aspirin 81 mg PO DAILY #30 tab Magnesium Oxide [Mag-Ox] 400 mg PO DAILY 3 Days #3 tablet Famotidine [Pepcid] 20 mg PO DAILY #20 tablet Insulin Aspart [NovoLOG Flexpen] 20 units SQ AC-TID Insulin Glargine,Hum.rec.anlog [Basaglar Kwikpen U-100] 30 unit SQ HS Losartan [Cozaar] 25 mg PO DAILY #30 tab Metoprolol Tartrate [Lopressor] 12.5 mg PO DAILY #30 tab Amoxic-Pot Clav 875-125Mg [Augmentin 875-125] 1 tab PO DIRECTED Discontinued Ibuprofen [Motrin] 600 mg PO Q8HR PRN #20 tab PRN Reason: Pain Discharge Medication List Atorvastatin [Lipitor] 80 mg PO HS 06/25/19 [History] Famotidine [Pepcid] 20 mg PO DAILY #20 tablet 04/18/24 [Rx] Insulin Aspart [NovoLOG Flexpen] 20 units SQ AC-TID 09/13/24 [History] Insulin Glargine,Hum.rec.anlog [Basaglar Kwikpen U-100] 30 unit SQ HS 09/13/24 [History] Aspirin 81 mg PO DAILY #30 tab 09/16/24 [Rx] Losartan [Cozaar] 25 mg PO DAILY #30 tab 09/16/24 [Rx] Metoprolol Tartrate [Lopressor] 12.5 mg PO DAILY #30 tab 09/17/24 [Rx] Magnesium Oxide [Mag-Ox] 400 mg PO DAILY 3 Days #3 tablet 10/04/24 [Rx] Amoxic-Pot Clav 875-125Mg [Augmentin 875-125] 1 tab PO DIRECTED 10/16/24 [History] Clopidogrel [Plavix] 75 mg PO DAILY #30 tablet 10/18/24 [Rx] amLODIPine [Norvasc] 10 mg PO DAILY #30 tab 10/18/24 [Rx] Follow up Appointment(s)/Referral(s): None,Stated [Primary Care Provider] - 1-2 days Diallo Crenshaw DO [Doctor of Osteopathic Medicine] - 1 Week Ronel Manzano MD [STAFF PHYSICIAN] - 1-2 Days Ambulatory/Diagnostic Orders: Basic Metabolic Panel [LAB.AMB] Time Frame: 3 Days, Location: None Selected Activity/Diet/Wound Care/Special Instructions: Continue aspirin and plavix daily Follow up with PCP 1 to 2 days Follow up with vascular surgery Dr Crenshaw in 1 week Continue over the counter tylenol for pain Discharge Disposition: HOME SELF-CARE
== END 2024-10-18 15:23 | disposition home or self-care (01) ==
LOC: EC 19:07 → 6NMEDSUR 10-16 00:20
PROVIDERS: ADMIT Hospitalist; ATTEND Hospitalist
DX: I99.8 Other disorder of circulatory system (principal); I25.10 Atherosclerotic heart disease of native coronary artery without angina pectoris; I10 Essential (primary) hypertension; E11.9 Type 2 diabetes mellitus without complications; E66.9 Obesity, unspecified; M54.50 Low back pain, unspecified; Z79.4 Long term (current) use of insulin; Z79.82 Long term (current) use of aspirin; Z79.899 Other long term (current) drug therapy; Z88.1 Allergy status to other antibiotic agents; Z87.891 Personal history of nicotine dependence; Z77.22 Contact with and (suspected) exposure to environmental tobacco smoke (acute) (chronic)
CPT/HCPCS: 96376 ×4; 96366 ×4; 96365; 96375; 99285; 36415; 80053; 80048 ×3; 85025 ×2; 85027; 85610; 85730 ×3; 93923; 73206; G0378 ×3; J1644 ×5; J1171 ×3; Q9967

== ENCOUNTER 2024-10-23 05:47 | Emergency (ER) | payer MEDICARE, OTHER ==
[2024-10-23 06:03] LABS: Glucose,Whole Blood 598 mg/dL (70-110)
[2024-10-23] MEDS: SODIUM CHLORIDE 0.9% 1,000 ML IV SCH (06:36)
[2024-10-23] MEDS: INSULIN LISPRO (HumaLOG) 100 UNIT/ML 10 mL VL SQ ONE (06:48)
[2024-10-23 06:51] LABS: Basophils # (A) 0.05 10*3/uL (0.00-0.10); Basophils % (A) 0.6 %; Eosinophils # (A) 0.18 10*3/uL (0.04-0.35); Eosinophils % (A) 2.1 %; HCT 39.3 % (37.2-46.3); HGB 13.5 g/dL (12.0-15.0); Immature Platelet Fraction 1.3 % (1.1-6.1); Lymphocytes # (A) 2.48 10*3/uL (0.90-5.00); Lymphocytes % (A) 29.2 %; MCH 28.4 pg (27.0-32.0); MCHC 34.4 g/dL (32.0-37.0); MCV 82.6 fL (80.0-97.0); Monocytes # (A) 0.54 10*3/uL (0.20-1.00); Monocytes % (A) 6.4 %; Neutrophils # (A) 5.21 10*3/uL (1.80-7.70); Neutrophils % (A) 61.3 %; Platelet Count 338 10*3/uL (140-440); RBC 4.76 10*6/uL (4.10-5.20); RDW 15.1 % (11.5-14.5); WBC 8.49 10*3/uL (4.50-10.00)
[2024-10-23 07:08] LABS: ALT 26 U/L (4-34); AST 24 U/L (14-36); African American GFR (CKD) >90 (>60 ml/min/1.73 sqM); Albumin 4.1 g/dL (3.5-5.0); Alkaline Phosphatase 145 U/L (38-126); Anion Gap 15 mmol/L; Blood Urea Nitrogen 13 mg/dL (7-17); Calcium 9.2 mg/dL (8.4-10.2); Carbon Dioxide 19 mmol/L (22-30); Chloride 95 mmol/L (98-107); Magnesium 1.4 mg/dL (1.6-2.3); Non-African American GFR(CKD) >90 (>60 ml/min/1.73 sqM); Potassium 4.9 mmol/L (3.5-5.1); Sodium 129 mmol/L (137-145); Total Protein 6.9 g/dL (6.3-8.2)
[2024-10-23 07:08] LABS: Bilirubin,Urine Negative (Negative); Blood,Urine Negative (Negative); Color,Urine Colorless; Glucose,Urine (UA) 4+ (Negative); Ketones,Urine Negative (Negative); Leukocyte Esterase,Urine Negative (Negative); Mucus,Urine Rare /hpf; Nitrite,Urine Negative (Negative); PH, Urine 6.0 (5.0-8.0); Protein,Urine 1+ (Negative); RBC,Urine 1 /hpf (0-5); Specific Gravity,Urine 1.024 (1.001-1.035); Squamous Epithelial Cell,Urine 2 /hpf (0-4); Urobilinogen,Urine <2.0 mg/dL (<2.0); WBC,Urine 3 /hpf (0-5)
[2024-10-23 07:26] LABS: Glucose 589 mg/dL (74-99)
[2024-10-23 08:15] LABS: Glucose,Whole Blood 432 mg/dL (70-110)
--- NOTE | 2024-10-23 08:17 | ED ---
General Adult HPI - General Chief complaint: Recheck/Abnormal Lab/Rx Stated complaint: abn labs Source: patient, EMS Mode of arrival: EMS Limitations: no limitations - History of Present Illness Initial comments: 54-year-old female with past medical history of diabetes who presents emergency department with the complaint of "generally not feeling well". Patient is known to the emergency department for this type of complaint and comes in several times per week. Patient does have hyperglycemia. She states she is taking all of her medications as directed however there has been compliance issues in the past. She states that she has joint pain. No shortness of breath. No chest pain. Admits nausea without vomiting. Admits to a chronic cough. No other alleviating, precipitating or modifying factors - Related Data Home Medications Medication Instructions Recorded Confirmed Atorvastatin [Lipitor] 80 mg PO HS 06/25/19 10/16/24 Insulin Aspart [NovoLOG Flexpen] 20 units SQ AC-TID 09/13/24 10/16/24 Insulin Glargine,Hum.rec.anlog 30 unit SQ HS 09/13/24 10/16/24 [Basaglar Kwikpen U-100] Amoxic-Pot Clav 875-125Mg 1 tab PO DIRECTED 10/16/24 10/16/24 [Augmentin 875-125] Previous Rx's Medication Instructions Recorded Famotidine [Pepcid] 20 mg PO DAILY #20 tablet 04/18/24 Aspirin 81 mg PO DAILY #30 tab 09/16/24 Magnesium Oxide [Mag-Ox] 400 mg PO DAILY 3 Days #3 tablet 10/04/24 Clopidogrel [Plavix] 75 mg PO DAILY #30 tablet 10/18/24 amLODIPine [Norvasc] 10 mg PO DAILY #30 tab 10/18/24 Losartan [Cozaar] 25 mg PO DAILY #30 tab 11/01/24 Metoprolol Tartrate [Lopressor] 12.5 mg PO DAILY #30 tab 11/01/24 Allergies Allergy/AdvReac Type Severity Reaction Status Date / Time levofloxacin [From Levaquin] Allergy Rash/Hives Verified 11/01/24 15:46 Review of Systems ROS Statement: Those systems with pertinent positive or pertinent negative responses have been documented in the HPI. ROS Other: All systems not noted in ROS Statement are negative. Past Medical History Past Medical History: Diabetes Mellitus, GERD/Reflux, Hyperlipidemia, Hypertension, Syncope Additional Past Medical History / Comment(s): Pt recently admitted to [facility] on 07/21/21 with uncontrolled IDDM and hyperkalemia. Other hx: Recurrent pancreatitis, hypertriglyceridemia, elevated lipase, IDDM type II, UTI, chronic low back pain, bulging discs, dental abscesses in past. History of Any Multi-Drug Resistant Organisms: MRSA Date of last positivie culture/infection: 03/01/23 MDRO Source:: Abdomen Past Surgical History: Tubal Ligation Additional Past Surgical History / Comment(s): Age 7 had VSD repair, tumor removal 03/2023 Past Anesthesia/Blood Transfusion Reactions: No Reported Reaction Past Psychological History: No Psychological Hx Reported Smoking Status: Former smoker, Second hand smoke exposure, Vaper Past Alcohol Use History: None Reported Past Drug Use History: None Reported - Past Family History Mother Family Medical History: No Reported History Additional Family Medical History / Comment(s): Mother was healthy. She is , pt cannot recall cause of . Father Family Medical History: Pneumonia Additional Family Medical History / Comment(s): Father at the age of 67yrs from pneumonia General Exam Limitations: no limitations General appearance: alert, in no apparent distress Head exam: Present: atraumatic, normocephalic, normal inspection Eye exam: Present: normal appearance, PERRL, EOMI. Absent: scleral icterus, conjunctival injection, periorbital swelling ENT exam: Present: normal exam, mucous membranes moist Neck exam: Present: normal inspection. Absent: tenderness, meningismus, lymphadenopathy Respiratory exam: Present: normal lung sounds bilaterally. Absent: respiratory distress, wheezes, rales, rhonchi, stridor Cardiovascular Exam: Present: regular rate, normal rhythm, normal heart sounds. Absent: systolic murmur, diastolic murmur, rubs, gallop, clicks GI/Abdominal exam: Present: soft, normal bowel sounds. Absent: distended, tenderness, guarding, rebound, rigid Extremities exam: Present: normal inspection, full ROM, normal capillary refill. Absent: tenderness, pedal edema, joint swelling, calf tenderness Back exam: Present: normal inspection Neurological exam: Present: alert, oriented X3, CN II-XII intact Psychiatric exam: Present: normal affect, normal mood Skin exam: Present: warm, dry, intact, normal color. Absent: rash Course Vital Signs 10/23/24 10/23/24 10/23/24 05:50 08:14 09:03 Temperature 99.1 F 98.9 F 98.7 F Pulse Rate 61 64 62 Respiratory 18 20 18 Rate Blood Pressure 139/53 145/72 153/82 O2 Sat by Pulse 95 97 98 Oximetry Procedures - [place] Protocol (Time Out) Nurse: Sandra De La Cruz Medical Decision Making - Medical Decision Making Was pt. sent in by a medical professional or institution (, PA, INSIDE SALES ADMINISTRATOR, urgent care, hospital, or usp...) When possible be specific @ -No Did you speak to anyone other than the patient for history (EMS, parent, family, police, friend...)? What history was obtained from this source @ -Spoke with EMS for history Did you review nursing and triage notes (agree or disagree)? Why? @ -I reviewed and agree with nursing and triage notes Were old charts reviewed (outside hosp., previous admission, EMS record, old EKG, old radiological studies, urgent care reports/EKG's, usp records)? Report findings @ -No old charts were reviewed Differential Diagnosis (chest pain, altered mental status, abdominal pain women, abdominal pain men, vaginal bleeding, weakness, fever, dyspnea, syncope, headache, dizziness, GI bleed, back pain, seizure, CVA, palpatations, mental health, musculoskeletal)? @ -Differential Weakness: Hypoglycemia, shock, sepsis, hyponatremia, anemia, infection, DE, ETOH, adverse medicine reaction, overdose, stroke, this is not meant to be an all-inclusive list. EKG interpreted by me (3pts min.). @ -Yes and demonstrates sinus rhythm with a rate of 68. W[place] interval 127. QRS 399. No acute ST segment elevations or depressions X-rays interpreted by me (1pt min.). @ -None done CT interpreted by me (1pt min.). @ -None done U/S interpreted by me (1pt. min.). @ -None done What testing was considered but not performed or refused? (CT, X-rays, U/S, labs)? Why? @ -None What meds were considered but not given or refused? Why? @ -None Did you discuss the management of the patient with other professionals (professionals i.e. , ROSALIE, INSIDE SALES ADMINISTRATOR, lab, RT, psych nurse, oncology social worker, director medical science, teacher, bank compliance officer, skilled nursing case manager)? Give summary @ -No Was smoking cessation discussed for >3mins.? @ -No Was critical care preformed (if so, how long)? @ -No Were there social determinants of health that impacted care today? How? (Homelessness, low income, unemployed, alcoholism, drug addiction, trans portation, low edu. Level, literacy, decrease access to med. care, senior living, rehab)? @ -Low education level Was there de-escalation of care discussed even if they declined (Discuss DNR or withdrawal of care, Hospice)? DNR status @ -No What co-morbidities impacted this encounter? (DM, HTN, Smoking, COPD, CAD, Cancer, CVA, ARF, Chemo, Hep., AIDS, mental health diagnosis, sleep apnea, morbid obesity)? @ -Diabetic Was patient admitted / discharged? Hospital course, mention meds given and route, prescriptions, significant lab abnormalities, going to OR and other pertinent info. @ -Upon arrival patient seen and evaluated in room 12. Thorough history and physical exam was performed. Laboratory studies are conducted. Patient does have hyperglycemia. She was given insulin with improvement. Patient will be discharged home. I did report the patient to our social work team. I feel that the patient needs more evaluation and help at home as the patient is frequently in the emergency department for the same complaint and clearly does not take her insulin. Patient is to follow-up with her primary care. She was discharged in stable condition Undiagnosed new problem with uncertain prognosis? @ -No Drug Therapy requiring intensive monitoring for toxicity (Heparin, Nitro, Insulin, Cardizem)? @ -No Were any procedures done? @ -No Diagnosis/symptom? @ -Acute hyperglycemia, history of diabetes mellitus Acute, or Chronic, or Acute on Chronic? @ -Acute on chronic Uncomplicated (without systemic symptoms) or Complicated (systemic symptoms)? @ -Complicated Side effects of treatment? @ -No Exacerbation, Progression, or Severe Exacerbation? @ -No Poses a threat to life or bodily function? How? (Chest pain, USA, DE, pneumonia, PE, COPD, DKA, ARF, appy, cholecystitis, CVA, Diverticulitis, Homicidal, Suicidal, threat to staff... and all critical care pts) @ -No - Lab Data Result diagrams: 10/23/24 06:29 10/23/24 06:36 Lab Results 10/23/24 10/23/24 10/23/24 Range/Units 05:57 06:22 06:29 WBC 8.49 (4.50-10.00) 10*3/uL RBC 4.76 (4.10-5.20) 10*6/uL Hgb 13.5 (12.0-15.0) g/dL Hct 39.3 (37.2-46.3) % MCV 82.6 (80.0-97.0) fL MCH 28.4 (27.0-32.0) pg MCHC 34.4 (32.0-37.0) g/dL Plt Count 338 (140-440) 10*3/uL MPV 9.5 (9.5-12.2) fL Immature Gran % (Auto) 0.4 % Neutrophils % 61.3 % Lymphocytes % 29.2 % Monocytes % 6.4 % Eosinophils % 2.1 % Basophils % 0.6 % Immature Gran # 0.03 (0.00-0.04) 10*3/uL Neutrophils # 5.21 (1.80-7.70) 10*3/uL Lymphocytes # 2.48 (0.90-5.00) 10*3/uL Monocytes # 0.54 (0.20-1.00) 10*3/uL Eosinophils # 0.18 (0.04-0.35) 10*3/uL Basophils # 0.05 (0.00-0.10) 10*3/uL Manual Slide Review Performed Immature Plt Fraction 1.3 (1.1-6.1) % Sodium (137-145) mmol/L Potassium (3.5-5.1) mmol/L Chloride (98-107) mmol/L Carbon Dioxide (22-30) mmol/L Anion Gap mmol/L BUN (7-17) mg/dL Creatinine (0.52-1.04) mg/dL Est GFR (CKD-EPI)AfAm (>60 ml/min/1.73 sqM) Est GFR (CKD-EPI)NonAf (>60 ml/min/1.73 sqM) Glucose (74-99) mg/dL POC Glucose (mg/dL) 598 H* (70-110) mg/dL POC Glu Director Child Abuse Therapy ID Giovani Amenda Calcium (8.4-10.2) mg/dL Magnesium (1.6-2.3) mg/dL Total Bilirubin (0.2-1.3) mg/dL AST (14-36) U/L ALT (4-34) U/L Alkaline Phosphatase (38-126) U/L Total Protein (6.3-8.2) g/dL Albumin (3.5-5.0) g/dL Urine Color Colorless Urine Appearance Clear (Clear) Urine pH 6.0 (5.0-8.0) Ur Specific Cutler 1.024 (1.001-1.035) Urine Protein 1+ H (Negative) Urine Glucose (UA) 4+ H (Negative) Urine Ketones Negative (Negative) Urine Blood Negative (Negative) Urine Nitrite Negative (Negative) Urine Bilirubin Negative (Negative) Urine Urobilinogen <2.0 (<2.0) mg/dL Ur Leukocyte Esterase Negative (Negative) Urine RBC 1 (0-5) /hpf Urine WBC 3 (0-5) /hpf Ur Squamous Epith Cells 2 (0-4) /hpf Urine Mucus Rare H (None) /hpf Acetone, Qual (Negative) 10/23/24 10/23/24 Range/Units 06:36 08:13 WBC (4.50-10.00) 10*3/uL RBC (4.10-5.20) 10*6/uL Hgb (12.0-15.0) g/dL Hct (37.2-46.3) % MCV (80.0-97.0) fL MCH (27.0-32.0) pg MCHC (32.0-37.0) g/dL Plt Count (140-440) 10*3/uL MPV (9.5-12.2) fL Immature Gran % (Auto) % Neutrophils % % Lymphocytes % % Monocytes % % Eosinophils % % Basophils % % Immature Gran # (0.00-0.04) 10*3/uL Neutrophils # (1.80-7.70) 10*3/uL Lymphocytes # (0.90-5.00) 10*3/uL Monocytes # (0.20-1.00) 10*3/uL Eosinophils # (0.04-0.35) 10*3/uL Basophils # (0.00-0.10) 10*3/uL Manual Slide Review Immature Plt Fraction (1.1-6.1) % Sodium 129 L (137-145) mmol/L Potassium 4.9 (3.5-5.1) mmol/L Chloride 95 L (98-107) mmol/L Carbon Dioxide 19 L (22-30) mmol/L Anion Gap 15 mmol/L BUN 13 (7-17) mg/dL Creatinine 0.49 L (0.52-1.04) mg/dL Est GFR (CKD-EPI)AfAm >90 (>60 ml/min/1.73 sqM) Est GFR (CKD-EPI)NonAf >90 (>60 ml/min/1.73 sqM) Glucose 589 H* (74-99) mg/dL POC Glucose (mg/dL) 432 H (70-110) mg/dL POC Glu Director Child Abuse Therapy ID Pritesh Tolbert Calcium 9.2 (8.4-10.2) mg/dL Magnesium 1.4 L (1.6-2.3) mg/dL Total Bilirubin 0.5 (0.2-1.3) mg/dL AST 24 (14-36) U/L ALT 26 (4-34) U/L Alkaline Phosphatase 145 H (38-126) U/L Total Protein 6.9 (6.3-8.2) g/dL Albumin 4.1 (3.5-5.0) g/dL Urine Color Urine Appearance (Clear) Urine pH (5.0-8.0) Ur Specific Cutler (1.001-1.035) Urine Protein (Negative) Urine Glucose (UA) (Negative) Urine Ketones (Negative) Urine Blood (Negative) Urine Nitrite (Negative) Urine Bilirubin (Negative) Urine Urobilinogen (<2.0) mg/dL Ur Leukocyte Esterase (Negative) Urine RBC (0-5) /hpf Urine WBC (0-5) /hpf Ur Squamous Epith Cells (0-4) /hpf Urine Mucus (None) /hpf Acetone, Qual Negative (Negative) Disposition Clinical Impression: Hyperglycemia Disposition: HOME SELF-CARE Condition: Stable Instructions (If sedation given, give patient instructions): Diabetic Hyperglycemia (ED) Additional Instructions: You need to start taking your medications as they are prescribed. Is patient prescribed a controlled substance at d/c from ED?: No Referrals: None,Stated [Primary Care Provider] - 1-2 days Time of Disposition: 08:16
[2024-10-23] MEDS: ACETAMINOPHEN TAB 325 MG TAB PO STA (08:21)
[2024-10-23 09:07] VITALS: BP 153/82; PULSE 62; RESP 18; TEMP 98.7
== END 2024-10-23 09:07 | disposition home or self-care (01) ==
LOC: EC 05:47
DX: E11.65 Type 2 diabetes mellitus with hyperglycemia (principal); F17.290 Nicotine dependence, other tobacco product, uncomplicated; Z88.1 Allergy status to other antibiotic agents
CPT/HCPCS: 36415; 80053; 81001; 82009; 83735; 85025; 93005; 96360; 96361; 99284

== ENCOUNTER 2024-10-29 17:30 | Emergency (ER) | payer MEDICARE ==
[2024-10-29 18:12] LABS: Glucose,Whole Blood 589 mg/dL (70-110)
[2024-10-29] MEDS: SODIUM CHLORIDE 0.9% 2,000 ML IV STA (18:26)
--- NOTE | 2024-10-29 18:46 | ED ---
Dizziness HPI - General Chief Complaint: Dizziness Stated Complaint: High sugar Time Seen by Provider: 10/29/24 18:35 Source: patient, RN notes reviewed Mode of arrival: EMS Limitations: no limitations - History of Present Illness Initial Comments: 54-year-old female well-known to ER presenting for dizziness with high blood sugar. Denies chest pain, shortness of breath, nausea, vomiting, fevers. Patient does have history of diabetes. - Related Data Home Medications Medication Instructions Recorded Confirmed Atorvastatin [Lipitor] 80 mg PO HS 06/25/19 10/16/24 Insulin Aspart [NovoLOG Flexpen] 20 units SQ AC-TID 09/13/24 10/16/24 Insulin Glargine,Hum.rec.anlog 30 unit SQ HS 09/13/24 10/16/24 [Basaglar Kwikpen U-100] Amoxic-Pot Clav 875-125Mg 1 tab PO DIRECTED 10/16/24 10/16/24 [Augmentin 875-125] Previous Rx's Medication Instructions Recorded Famotidine [Pepcid] 20 mg PO DAILY #20 tablet 04/18/24 Aspirin 81 mg PO DAILY #30 tab 09/16/24 Losartan [Cozaar] 25 mg PO DAILY #30 tab 09/16/24 Metoprolol Tartrate [Lopressor] 12.5 mg PO DAILY #30 tab 09/17/24 Magnesium Oxide [Mag-Ox] 400 mg PO DAILY 3 Days #3 tablet 10/04/24 Clopidogrel [Plavix] 75 mg PO DAILY #30 tablet 10/18/24 amLODIPine [Norvasc] 10 mg PO DAILY #30 tab 10/18/24 Allergies Allergy/AdvReac Type Severity Reaction Status Date / Time levofloxacin [From Levaquin] Allergy Rash/Hives Verified 10/29/24 17:36 Review of Systems ROS Statement: Those systems with pertinent positive or pertinent negative responses have been documented in the HPI. ROS Other: All systems not noted in ROS Statement are negative. Past Medical History Past Medical History: Diabetes Mellitus, GERD/Reflux, Hyperlipidemia, Hypertension, Syncope Additional Past Medical History / Comment(s): Pt recently admitted to [facility] on 07/21/21 with uncontrolled IDDM and hyperkalemia. Other hx: Recurrent pancreatitis, hypertriglyceridemia, elevated lipase, IDDM type II, UTI, chronic low back pain, bulging discs, dental abscesses in past. History of Any Multi-Drug Resistant Organisms: MRSA Date of last positivie culture/infection: 03/01/23 MDRO Source:: Abdomen Past Surgical History: Tubal Ligation Additional Past Surgical History / Comment(s): Age 7 had VSD repair, tumor removal 03/2023 Past Anesthesia/Blood Transfusion Reactions: No Reported Reaction Past Psychological History: No Psychological Hx Reported Smoking Status: Former smoker, Second hand smoke exposure, Vaper Past Alcohol Use History: None Reported Past Drug Use History: None Reported - Past Family History Mother Family Medical History: No Reported History Additional Family Medical History / Comment(s): Mother was healthy. She is dec eased, pt cannot recall cause of . Father Family Medical History: Pneumonia Additional Family Medical History / Comment(s): Father at the age of 67yrs from pneumonia General Exam Limitations: no limitations General appearance: alert, in no apparent distress Head exam: Present: atraumatic, normocephalic, normal inspection Eye exam: Present: normal appearance, PERRL, EOMI. Absent: scleral icterus, conjunctival injection, periorbital swelling ENT exam: Present: normal exam, mucous membranes moist Neck exam: Present: normal inspection. Absent: tenderness, meningismus, lymphadenopathy Respiratory exam: Present: normal lung sounds bilaterally. Absent: respiratory distress, wheezes, rales, rhonchi, stridor Cardiovascular Exam: Present: regular rate, normal rhythm, normal heart sounds. Absent: systolic murmur, diastolic murmur, rubs, gallop, clicks GI/Abdominal exam: Present: soft, normal bowel sounds. Absent: distended, tenderness, guarding, rebound, rigid Neurological exam: Present: alert, oriented X3 Psychiatric exam: Present: normal affect, normal mood Skin exam: Present: warm, dry, intact, normal color. Absent: rash Course Vital Signs 10/29/24 10/29/24 17:33 21:41 Temperature 97.9 F 98.3 F Pulse Rate 72 59 L Respiratory 18 16 Rate Blood Pressure 128/80 156/87 O2 Sat by Pulse 95 97 Oximetry Medical Decision Making - Medical Decision Making Was pt. sent in by a medical professional or institution (, PA, DIRECTOR DIGITAL ADVERTISING, urgent care, hospital, or [facility]...) When possible be specific @ -No Did you speak to anyone other than the patient for history (EMS, parent, family, police, friend...)? What history was obtained from this source @ -No Did you review nursing and triage notes (agree or disagree)? Why? @ -I reviewed and agree with nursing and triage notes Were old charts reviewed (outside hosp., previous admission, EMS record, old EKG, old radiological studies, urgent care reports/EKG's, [facility] records)? Report findings @ -No old charts were reviewed Differential Diagnosis (chest pain, altered mental status, abdominal pain women, abdominal pain men, vaginal bleeding, weakness, fever, dyspnea, syncope, headache, dizziness, GI bleed, back pain, seizure, CVA, palpatations, mental health, musculoskeletal)? @ -Hyperglycemia, DKA, HHS EKG interpreted by me (3pts min.). @ -None X-rays interpreted by me (1pt min.). @ -None done CT interpreted by me (1pt min.). @ -None done U/S interpreted by me (1pt. min.). @ -None done What testing was considered but not performed or refused? (CT, X-rays, U/S, labs)? Why? @ -None What meds were considered but not given or refused? Why? @ -None Did you discuss the management of the patient with other professionals (prof zepeda i.e. , PA, DIRECTOR DIGITAL ADVERTISING, lab, RT, psych nurse, social sciences professor, onion farmer, teacher, ordnance corps officer, catalytic case operator)? Give summary @ -No Was smoking cessation discussed for >3mins.? @ -No Was critical care preformed (if so, how long)? @ -No Were there social determinants of health that impacted care today? How? (Homelessness, low income, unemployed, alcoholism, drug addiction, transportation, low edu. Level, literacy, decrease access to med. care, care home, rehab)? @ -No Was there de-escalation of care discussed even if they declined (Discuss DNR or withdrawal of care, Hospice)? DNR status @ -No What co-morbidities impacted this encounter? (DM, HTN, Smoking, COPD, CAD, Cancer, CVA, ARF, Chemo, Hep., AIDS, mental health diagnosis, sleep apnea, morbid obesity)? @ -None Was patient admitted / discharged? Hospital course, mention meds given and route, prescriptions, significant lab abnormalities, going to OR and other pertinent info. @ -Discharge. 54-year-old female well-known to ER presenting for dizziness x 2 days with hyperglycemia. Initial blood glucose 589. Patient is provided with IV fluids and subcutaneous insulin. Patient does not appear to be in DKA. Anion gap is 10. No ketonuria. Repeat Accu-Chek reveals blood glucose 376. Patient reports improvement of symptoms and can be discharged home with return precautions and close follow-up care. Case was discussed with my ED attending Dr. De Los Santos. Undiagnosed new problem with uncertain prognosis? @ -No Drug Therapy requiring intensive monitoring for toxicity (Heparin, Nitro, Insulin, Cardizem)? @ -No Were any procedures done? @ -No Diagnosis/symptom? @ -Hyperglycemia Acute, or Chronic, or Acute on Chronic? @ -Acute Uncomplicated (without systemic symptoms) or Complicated (systemic symptoms)? @ -Complicated Side effects of treatment? @ -No Exacerbation, Progression, or Severe Exacerbation? @ -No Poses a threat to life or bodily function? How? (Chest pain, [place], [place], pneumonia, PE, COPD, DKA, ARF, appy, cholecystitis, CVA, Diverticulitis, Homicidal, Suicidal, threat to staff... and all critical care pts) @ -Not at this time - Lab Data Result diagrams: 10/29/24 20:22 10/29/24 20:22 Lab Results 10/29/24 10/29/24 10/29/24 Range/Units 18:10 18:44 19:49 WBC (4.50-10.00) 10*3/uL RBC (4.10-5.20) 10*6/uL Hgb (12.0-15.0) g/dL Hct (37.2-46.3) % MCV (80.0-97.0) fL MCH (27.0-32.0) pg MCHC (32.0-37.0) g/dL Plt Count (140-440) 10*3/uL MPV (9.5-12.2) fL Immature Gran % (Auto) % Neutrophils % % Lymphocytes % % Monocytes % % Eosinophils % % Basophils % % Immature Gran # (0.00-0.04) 10*3/uL Neutrophils # (1.80-7.70) 10*3/uL Lymphocytes # (0.90-5.00) 10*3/uL Monocytes # (0.20-1.00) 10*3/uL Eosinophils # (0.04-0.35) 10*3/uL Basophils # (0.00-0.10) 10*3/uL Sodium (137-145) mmol/L Potassium (3.5-5.1) mmol/L Chloride (98-107) mmol/L Carbon Dioxide (22-30) mmol/L Anion Gap mmol/L BUN (7-17) mg/dL Creatinine (0.52-1.04) mg/dL Est GFR (CKD-EPI)AfAm (>60 ml/min/1.73 sqM) Est GFR (CKD-EPI)NonAf (>60 ml/min/1.73 sqM) Glucose (74-99) mg/dL POC Glucose (mg/dL) 589 H* 427 H (70-110) mg/dL POC Glu Lining Stamper ID Suzanne Briceno Calcium (8.4-10.2) mg/dL Total Bilirubin (0.2-1.3) mg/dL AST (14-36) U/L ALT (4-34) U/L Alkaline Phosphatase (38-126) U/L Total Protein (6.3-8.2) g/dL Albumin (3.5-5.0) g/dL Urine Color Colorless Urine Appearance Clear (Clear) Urine pH 6.0 (5.0-8.0) Ur Specific [place] 1.022 (1.001-1.035) Urine Protein Trace H (Negative) Urine Glucose (UA) 4+ H (Negative) Urine Ketones Negative (Negative) Urine Blood Negative (Negative) Urine Nitrite Negative (Negative) Urine Bilirubin Negative (Negative) Urine Urobilinogen <2.0 (<2.0) mg/dL Ur Leukocyte Esterase Negative (Negative) 10/29/24 10/29/24 Range/Units 20:22 20:22 WBC 8.78 (4.50-10.00) 10*3/uL RBC 4.40 (4.10-5.20) 10*6/uL Hgb 12.5 (12.0-15.0) g/dL Hct 36.0 L (37.2-46.3) % MCV 81.8 (80.0-97.0) fL MCH 28.4 (27.0-32.0) pg MCHC 34.7 (32.0-37.0) g/dL Plt Count 427 (140-440) 10*3/uL MPV 9.1 L (9.5-12.2) fL Immature Gran % (Auto) 0.2 % Neutrophils % 55.3 % Lymphocytes % 37.2 % Monocytes % 4.4 % Eosinophils % 2.2 % Basophils % 0.7 % Immature Gran # 0.02 (0.00-0.04) 10*3/uL Neutrophils # 4.85 (1.80-7.70) 10*3/uL Lymphocytes # 3.27 (0.90-5.00) 10*3/uL Monocytes # 0.39 (0.20-1.00) 10*3/uL Eosinophils # 0.19 (0.04-0.35) 10*3/uL Basophils # 0.06 (0.00-0.10) 10*3/uL Sodium 131 L (137-145) mmol/L Potassium 5.0 (3.5-5.1) mmol/L Chloride 102 (98-107) mmol/L Carbon Dioxide 19 L (22-30) mmol/L Anion Gap 10 mmol/L BUN 19 H (7-17) mg/dL Creatinine 0.59 (0.52-1.04) mg/dL Est GFR (CKD-EPI)AfAm >90 (>60 ml/min/1.73 sqM) Est GFR (CKD-EPI)NonAf >90 (>60 ml/min/1.73 sqM) Glucose 376 H (74-99) mg/dL POC Glucose (mg/dL) (70-110) mg/dL POC Glu Lining Stamper ID Calcium 8.3 L (8.4-10.2) mg/dL Total Bilirubin 0.5 (0.2-1.3) mg/dL AST 25 (14-36) U/L ALT 18 (4-34) U/L Alkaline Phosphatase 114 (38-126) U/L Total Protein 6.2 L (6.3-8.2) g/dL Albumin 3.4 L (3.5-5.0) g/dL Urine Color Urine Appearance (Clear) Urine pH (5.0-8.0) Ur Specific [place] (1.001-1.035) Urine Protein (Negative) Urine Glucose (UA) (Negative) Urine Ketones (Negative) Urine Blood (Negative) Urine Nitrite (Negative) Urine Bilirubin (Negative) Urine Urobilinogen (<2.0) mg/dL Ur Leukocyte Esterase (Negative) Disposition Clinical Impression: Hyperglycemia Disposition: HOME SELF-CARE Condition: Stable Instructions (If sedation given, give patient instructions): Diabetic Hyperglycemia (ED) Additional Instructions: Please return to the Emergency Department if symptoms worsen or any other concerns. Is patient prescribed a controlled substance at d/c from ED?: No Referrals: None,Stated [Primary Care Provider] - 1-2 days Time of Disposition: 20:54
[2024-10-29] MEDS: INSULIN REGULAR 100 UNIT/ML VIAL (IM/SQ) SQ ONE ×2 (19:07→20:41)
[2024-10-29 19:36] LABS: Bilirubin,Urine Negative (Negative); Blood,Urine Negative (Negative); Color,Urine Colorless; Glucose,Urine (UA) 4+ (Negative); Ketones,Urine Negative (Negative); Leukocyte Esterase,Urine Negative (Negative); Nitrite,Urine Negative (Negative); PH, Urine 6.0 (5.0-8.0); Protein,Urine Trace (Negative); Specific Gravity,Urine 1.022 (1.001-1.035); Urobilinogen,Urine <2.0 mg/dL (<2.0)
[2024-10-29 19:50] LABS: Glucose,Whole Blood 427 mg/dL (70-110)
[2024-10-29] MEDS: ACETAMINOPHEN TAB 325 MG TAB PO STA (19:50)
[2024-10-29 20:28] LABS: Basophils # (A) 0.06 10*3/uL (0.00-0.10); Basophils % (A) 0.7 %; Eosinophils # (A) 0.19 10*3/uL (0.04-0.35); Eosinophils % (A) 2.2 %; HCT 36.0 % (37.2-46.3); HGB 12.5 g/dL (12.0-15.0); Lymphocytes # (A) 3.27 10*3/uL (0.90-5.00); Lymphocytes % (A) 37.2 %; MCH 28.4 pg (27.0-32.0); MCHC 34.7 g/dL (32.0-37.0); MCV 81.8 fL (80.0-97.0); Monocytes # (A) 0.39 10*3/uL (0.20-1.00); Monocytes % (A) 4.4 %; Neutrophils # (A) 4.85 10*3/uL (1.80-7.70); Neutrophils % (A) 55.3 %; Platelet Count 427 10*3/uL (140-440); RBC 4.40 10*6/uL (4.10-5.20); RDW 15.0 % (11.5-14.5); WBC 8.78 10*3/uL (4.50-10.00)
[2024-10-29 20:52] LABS: ALT 18 U/L (4-34); AST 25 U/L (14-36); African American GFR (CKD) >90 (>60 ml/min/1.73 sqM); Albumin 3.4 g/dL (3.5-5.0); Alkaline Phosphatase 114 U/L (38-126); Anion Gap 10 mmol/L; Blood Urea Nitrogen 19 mg/dL (7-17); Calcium 8.3 mg/dL (8.4-10.2); Carbon Dioxide 19 mmol/L (22-30); Chloride 102 mmol/L (98-107); Glucose 376 mg/dL (74-99); Non-African American GFR(CKD) >90 (>60 ml/min/1.73 sqM); Potassium 5.0 mmol/L (3.5-5.1); Sodium 131 mmol/L (137-145); Total Protein 6.2 g/dL (6.3-8.2)
[2024-10-29 21:44] VITALS: BP 156/87; PULSE 59; RESP 16; TEMP 98.3
== END 2024-10-29 21:44 | disposition home or self-care (01) ==
LOC: EC 17:30
DX: E11.65 Type 2 diabetes mellitus with hyperglycemia (principal); F17.290 Nicotine dependence, other tobacco product, uncomplicated; Z88.1 Allergy status to other antibiotic agents
CPT/HCPCS: 36415; 80053; 81003; 85025; 96360; 96361; 99285

== ENCOUNTER 2024-11-01 15:43 | Emergency (ER) | payer MEDICARE ==
[2024-11-01 15:50] LABS: Glucose,Whole Blood 553 mg/dL (70-110)
[2024-11-01 15:52] VITALS: RESP 16
--- NOTE | 2024-11-01 16:16 | ED ---
Recheck HPI - General Chief Complaint: Recheck/Abnormal Lab/Rx Stated Complaint: Generalized pain,Hyperglycemia Time Seen by Provider: 11/01/24 16:15 Source: patient, EMS, RN notes reviewed, old records reviewed Mode of arrival: EMS Limitations: no limitations - History of Present Illness Initial Comments: This is a 54-year-old female to the ER for evaluation well-known to this emergency department for issues with chronic pain elevated blood sugar and multiple other constellation of chronic complaints and comorbid conditions. Patient complaining of right arm pain that has been fully investigated after heart catheterization and deemed time to heal, patient has back pain which is chronic abdominal pain chronic blood sugars been well-controlled, patient is here for pain control MD Complaint: medication refill request Returns Today for: persistent/worsening pain related to initial visit Associated Symptoms: abdominal pain Treatments Prior to Arrival: Given Pain Meds on - Related Data Home Medications Medication Instructions Recorded Confirmed Atorvastatin [Lipitor] 80 mg PO HS 06/25/19 10/16/24 Insulin Aspart [NovoLOG Flexpen] 20 units SQ AC-TID 09/13/24 10/16/24 Insulin Glargine,Hum.rec.anlog 30 unit SQ HS 09/13/24 10/16/24 [Basaglar Kwikpen U-100] Amoxic-Pot Clav 875-125Mg 1 tab PO DIRECTED 10/16/24 10/16/24 [Augmentin 875-125] Previous Rx's Medication Instructions Recorded Famotidine [Pepcid] 20 mg PO DAILY #20 tablet 04/18/24 Aspirin 81 mg PO DAILY #30 tab 09/16/24 Magnesium Oxide [Mag-Ox] 400 mg PO DAILY 3 Days #3 tablet 10/04/24 Clopidogrel [Plavix] 75 mg PO DAILY #30 tablet 10/18/24 amLODIPine [Norvasc] 10 mg PO DAILY #30 tab 10/18/24 Losartan [Cozaar] 25 mg PO DAILY #30 tab 11/01/24 Metoprolol Tartrate [Lopressor] 12.5 mg PO DAILY #30 tab 11/01/24 Ondansetron Odt [Zofran Odt] 4 mg PO Q8HR PRN #10 tab 11/04/24 Allergies Allergy/AdvReac Type Severity Reaction Status Date / Time levofloxacin [From Levaquin] Allergy Rash/Hives Verified 11/04/24 19:10 Review of Systems ROS Statement: Those systems with pertinent positive or pertinent negative responses have been documented in the HPI. ROS Other: All systems not noted in ROS Statement are negative. Past Medical History Past Medical History: Diabetes Mellitus, GERD/Reflux, Hyperlipidemia, Hypertension, Syncope Additional Past Medical History / Comment(s): Pt recently admitted to [facility] on 07/21/21 with uncontrolled IDDM and hyperkalemia. Other hx: Recurrent pancreatitis, hypertriglyceridemia, elevated lipase, IDDM type II, UTI, chronic low back pain, bulging discs, dental abscesses in past. History of Any Multi-Drug Resistant Organisms: MRSA Date of last positivie culture/infection: 03/01/23 MDRO Source:: Abdomen Past Surgical History: Tubal Ligation Additional Past Surgical History / Comment(s): Age 7 had VSD repair, tumor removal 03/2023 Past Anesthesia/Blood Transfusion Reactions: No Reported Reaction Past Psychological History: No Psychological Hx Reported Smoking Status: Former smoker, Second hand smoke exposure, Vaper Past Alcohol Use History: None Reported Past Drug Use History: None Reported - Past Family History Mother Family Medical History: No Reported History Additional Family Medical History / Comment(s): Mother was healthy. She is , pt cannot recall cause of . Father Family Medical History: Pneumonia Additional Family Medical History / Comment(s): Father at the age of 67yrs from pneumonia General Exam Limitations: no limitations General appearance: alert, in no apparent distress Head exam: Present: atraumatic, normocephalic, normal inspection Eye exam: Present: normal appearance, PERRL, EOMI. Absent: scleral icterus, conjunctival injection, periorbital swelling ENT exam: Present: normal exam, mucous membranes moist Neck exam: Present: normal inspection. Absent: tenderness, meningismus, lymphadenopathy Respiratory exam: Present: normal lung sounds bilaterally. Absent: respiratory distress, wheezes, rales, rhonchi, stridor Cardiovascular Exam: Present: regular rate, normal rhythm, normal heart sounds. Absent: systolic murmur, diastolic murmur, rubs, gallop, clicks GI/Abdominal exam: Present: soft, normal bowel sounds. Absent: distended, tenderness, guarding, rebound, rigid Extremities exam: Present: normal inspection, full ROM, normal capillary refill. Absent: tenderness, pedal edema, joint swelling, calf tenderness Back exam: Present: normal inspection Neurological exam: Present: alert, oriented X3, CN II-XII intact Psychiatric exam: Present: normal affect, normal mood Skin exam: Present: warm, dry, intact, normal color. Absent: rash Course Vital Signs 11/01/24 11/01/24 15:46 17:23 Temperature 99.3 F 98.7 F Pulse Rate 74 70 Respiratory 16 16 Rate Blood Pressure 145/62 146/88 O2 Sat by Pulse 95 98 Oximetry - Reevaluation(s) Reevaluation #1: 11/01/24 17:15 Medical records reviewed Reevaluation #2: 11/01/24 17:15 Patient symptoms improved Reevaluation #3: 11/01/24 17:15 Patient informed of results questions answered patient informed of results and questions answered Reevaluation #4: Was pt. sent in by a medical professional or institution (ROSALIE Flaherty, SENIOR PRODUCT ANALYST, urgent care, hospital, or residential...) When possible be specific @ -no Did you speak to anyone other than the patient for history (EMS, parent, family, police, friend...)? What history was obtained from this source @ -no Did you review nursing and triage notes (agree or disagree)? Why? @ -agree Are old charts reviewed (outside hosp., previous admission, EMS record, old EKG, old radiological studies, urgent care reports/EKG's, residential records)? Report findings @ -yes Differential Diagnosis (chest pain, altered mental status, abdominal pain women, abdominal pain men, vaginal bleeding, weakness, fever, dyspnea, syncope, headache, dizziness, GI bleed, back pain, seizure, CVA, palpatations, mental health, musculoskeletal)? @ -prior EKG interpreted by me (3pts min.). @ -no X-rays interpreted by me (1pt min.). @ -no CT interpreted by me (1pt min.). @ -no U/S interpreted by me (1pt. min.). @ -no What testing was considered but not performed or refused? (CT, X-rays, U/S, labs)? Why? @ -none What meds were considered but not given or refused? Why? @ -none Did you discuss the management of the patient with other professionals (professionals i.e. Dr., PA, SENIOR PRODUCT ANALYST, lab, RT, psych nurse, director of social media marketing, data input clerk, teacher, wildlife officer, shoe parts caser)? Give summary @ -no Was smoking cessation discussed for >3mins.? @ -no Was critical care preformed (if so, how long)? @ -no Were there social determinants of health that impacted care today? How? (Homelessness, low income, unemployed, alcoholism, drug addiction, transportation, low edu. Level, literacy, decrease access to med. care, detention, rehab)? @ -none Was there de-escalation of care discussed even if they declined (Discuss DNR or withdrawal of care, Hospice)? DNR status @ -no What co-morbidities impacted this encounter? (DM, HTN, Smoking, COPD, CAD, Cancer, CVA, ARF, Chemo, Hep., AIDS, mental health diagnosis, sleep apnea, morbid obesity)? @ -none Was patient admitted / discharged? Hospital course, mention meds given and route, prescriptions, significant lab abnormalities, going to OR and other pertinent info. @ - 54 female recheck abnormal pain control, patient has adequate pain control here in the ER is in no acute distress and can be discharged home Discharge Undiagnosed new problem with uncertain prognosis? @ -no Drug Therapy requiring intensive monitoring for toxicity (Heparin, Nitro, Insulin, Cardizem)? @ -no Were any procedures done? @ -no Diagnosis/symptom? @ -Abdominal pain Acute, or Chronic, or Acute on Chronic? @ -Acute Uncomplicated (without systemic symptoms) or Complicated (systemic symptoms)? @ -Complicated Side effects of treatment? @ -no Exacerbation, Progression, or Severe Exacerbation? @ -exacerbation Poses a threat to life or bodily function? How? (Chest pain, [place], [place], pneumonia, PE, COPD, DKA, ARF, appy, cholecystitis, CVA, Diverticulitis, Homicidal, Suicidal, threat to staff... and all critical care pts) @ -no Medical Decision Making - Medical Decision Making 54 female recheck abnormal pain control, patient has adequate pain control here in the ER is in no acute distress and can be discharged home - Lab Data Lab Results 11/01/24 Range/Units 15:49 POC Glucose (mg/dL) 553 H* (70-110) mg/dL POC Glu Sheet Rock Hanger BELINDA Vasquez Disposition Clinical Impression: Nausea & vomiting, Abdominal pain Disposition: HOME SELF-CARE Condition: Good Instructions (If sedation given, give patient instructions): Abdominal Pain (ED) Prescriptions: Losartan [Cozaar] 25 mg PO DAILY #30 tab Metoprolol Tartrate [Lopressor] 12.5 mg PO DAILY #30 tab Is patient prescribed a controlled substance at d/c from ED?: No Referrals: None,Stated [Primary Care Provider] - 1-2 days Time of Disposition: 17:00
[2024-11-01] MEDS: ACET/COD 300 MG/30 MG STARTER PACK TAB BTL PO STA (17:22)
[2024-11-01] MEDS: HYDROmorphone 1 MG/ML 1 ML SYRINGE IM STA (17:22)
[2024-11-01 17:25] VITALS: BP 146/88; PULSE 70; TEMP 98.7
== END 2024-11-01 17:28 | disposition home or self-care (01) ==
LOC: EC 15:43
CPT/HCPCS: 36415; 96372; 99285

== ENCOUNTER 2024-11-04 19:05 | Emergency (ER) | payer MEDICARE, OTHER ==
--- NOTE | 2024-11-04 19:35 | ED ---
Nausea/Vomiting/Diarrhea HPI - General Chief complaint: Nausea/Vomiting/Diarrhea Stated complaint: vomiting diarrhea Time Seen by Provider: 11/04/24 19:34 Source: patient, EMS, RN notes reviewed, old records reviewed Mode of arrival: EMS Limitations: no limitations - History of Present Illness Initial comments: 54-year-old female presented to the ER via EMS for evaluation of nausea, vomiting and diarrhea. Patient with a past medical history significant of uncontrolled type 2 diabetes, GERD, hyperlipidemia and hypertension. Patient reports since last night she has been having diarrhea along with nausea and vomiting. She states states she is afraid to eat given her nausea and vomiting. Patient also was endorsing a cramping/spasming generalized abdominal discomfort along with chronic lower back pain. She denies any recent falls or injuries. She has not taken anything for her current symptoms. She denies any hematemesis, coffee-ground emesis, melena or hematochezia. Denies any dysuria, increasing urinary frequency, hematuria, fevers or chills. Patient denies any chest pain or shortness of breath. Patient denies prior abdominal surgeries outside of tubal ligation. Patient is well-known to this emergency department. - Related Data Home Medications Medication Instructions Recorded Confirmed Atorvastatin [Lipitor] 80 mg PO HS 06/25/19 10/16/24 Insulin Aspart [NovoLOG Flexpen] 20 units SQ AC-TID 09/13/24 10/16/24 Insulin Glargine,Hum.rec.anlog 30 unit SQ HS 09/13/24 10/16/24 [Basaglar Kwikpen U-100] Amoxic-Pot Clav 875-125Mg 1 tab PO DIRECTED 10/16/24 10/16/24 [Augmentin 875-125] Previous Rx's Medication Instructions Recorded Famotidine [Pepcid] 20 mg PO DAILY #20 tablet 04/18/24 Aspirin 81 mg PO DAILY #30 tab 09/16/24 Magnesium Oxide [Mag-Ox] 400 mg PO DAILY 3 Days #3 tablet 10/04/24 Clopidogrel [Plavix] 75 mg PO DAILY #30 tablet 10/18/24 amLODIPine [Norvasc] 10 mg PO DAILY #30 tab 10/18/24 Losartan [Cozaar] 25 mg PO DAILY #30 tab 11/01/24 Metoprolol Tartrate [Lopressor] 12.5 mg PO DAILY #30 tab 11/01/24 Ondansetron Odt [Zofran Odt] 4 mg PO Q8HR PRN #10 tab 11/04/24 Allergies Allergy/AdvReac Type Severity Reaction Status Date / Time levofloxacin [From Levaquin] Allergy Rash/Hives Verified 11/04/24 19:10 Review of Systems ROS Statement: Those systems with pertinent positive or pertinent negative responses have been documented in the HPI. ROS Other: All systems not noted in ROS Statement are negative. Past Medical History Past Medical History: Diabetes Mellitus, GERD/Reflux, Hyperlipidemia, Hypertension, Syncope Additional Past Medical History / Comment(s): Pt recently admitted to [facility] on 07/21/21 with uncontrolled IDDM and hyperkalemia. Other hx: Recurrent pancreatitis, hypertriglyceridemia, elevated lipase, IDDM type II, UTI, chronic low back pain, bulging discs, dental abscesses in past. History of Any Multi-Drug Resistant Organisms: MRSA Date of last positivie culture/infection: 03/01/23 MDRO Source:: Abdomen Past Surgical History: Tubal Ligation Additional Past Surgical History / Comment(s): Age 7 had VSD repair, tumor removal 03/2023 Past Anesthesia/Blood Transfusion Reactions: No Reported Reaction Past Psychological History: No Psychological Hx Reported Smoking Status: Former smoker, Second hand smoke exposure, Vaper Past Alcohol Use History: None Reported Past Drug Use History: None Reported - Past Family History Mother Family Medical History: No Reported History Additional Family Medical History / Comment(s): Mother was healthy. She is , pt cannot recall cause of . Father Family Medical History: Pneumonia Additional Family Medical History / Comment(s): Father at the age of 67yrs from pneumonia General Exam Limitations: no limitations General appearance: alert, in no apparent distress Respiratory exam: Present: normal lung sounds bilaterally. Absent: respiratory distress, wheezes, rales, rhonchi, stridor Cardiovascular Exam: Present: regular rate, normal rhythm, normal heart sounds. Absent: systolic murmur, diastolic murmur, rubs, gallop, clicks GI/Abdominal exam: Present: soft, tenderness (generalized), normal bowel sounds Neurological exam: Present: alert, CN II-XII intact Skin exam: Present: warm, dry, intact, normal color. Absent: rash Course Vital Signs 11/04/24 11/04/24 19:06 22:37 Temperature 97.9 F 98.5 F Pulse Rate 67 60 Respiratory 18 17 Rate Blood Pressure 158/78 134/84 O2 Sat by Pulse 98 97 Oximetry Medical Decision Making - Medical Decision Making Was pt. sent in by a medical professional or institution (, ROSALIE, BROADCAST TECHNICIAN, urgent care, hospital, or senior living...) When possible be specific @ -No Did you speak to anyone other than the patient for history (EMS, parent, family, police, friend...)? What history was obtained from this source @ -No Did you review nursing and triage notes (agree or disagree)? Why? @ -I reviewed and agree with nursing and triage notes Were old charts reviewed (outside hosp., previous admission, EMS record, old EKG, old radiological studies, urgent care reports/EKG's, senior living records)? Report findings @ -[Prior medical records Differential Diagnosis (chest pain, altered mental status, abdominal pain women, abdominal pain men, vaginal bleeding, weakness, fever, dyspnea, syncope, headache, dizziness, GI bleed, back pain, seizure, CVA, palpatations, mental health, musculoskeletal)? @ -Differential Abdominal Pain Women: Appendicitis, Cholecystitis, diverticulosis, ischemic bowel, pancreatitis, hepatitis, UTI, gastroenteritis, AAA, incarcerated hernia, bowel obstruction, constipation, inflammatory bowel, hepatitis, peptic ulcer disease, splenic infarction, perforated viscus, vulviti s, ovarian torsion, PID, kidney stone, placenta abruption, this is not meant to be an all-inclusive lis EKG interpreted by me (3pts min.). @ -As above X-rays interpreted by me (1pt min.). @ -None done CT interpreted by me (1pt min.). @ -None done U/S interpreted by me (1pt. min.). @ -None done What testing was considered but not performed or refused? (CT, X-rays, U/S, labs)? Why? @ -None What meds were considered but not given or refused? Why? @ -None Did you discuss the management of the patient with other professionals (professionals i.e. , ROSALIE, BROADCAST TECHNICIAN, lab, RT, psych nurse, director of social work, inspector publications, teacher, food safety officer, sample case porter)? Give summary @ -No Was smoking cessation discussed for >3mins.? @ -No Was critical care preformed (if so, how long)? @ -No Were there social determinants of health that impacted care today? How? (Homelessness, low income, unemployed, alcoholism, drug addiction, transportation, low edu. Level, literacy, decrease access to med. care, nursing home, rehab)? @ -Patient has a guardian Was there de-escalation of care discussed even if they declined (Discuss DNR or withdrawal of care, Hospice)? DNR status @ -No What co-morbidities impacted this encounter? (DM, HTN, Smoking, COPD, CAD, Cancer, CVA, ARF, Chemo, Hep., AIDS, mental health diagnosis, sleep apnea, morbid obesity)? @ -Uncontrolled diabetes mellitus, GERD, hypertension, hyperlipidemia Was patient admitted / discharged? Hospital course, mention meds given and route, prescriptions, significant lab abnormalities, going to OR and other pertinent info. @ -Discharge. 54-year-old female presented the ER for evaluation of nausea vomiting and diarrhea. Patient is well-known to this emergency department. Upon arrival vital signs stable. Patient no signs of acute distress nontoxic-appearing. Abdominal exam remarkable for generalized tenderness with normal bowel sounds no rebound or guarding. Laboratory studies obtained remarkable for hyperglycemia at 577 for which patient received 12 units subcu insulin with improvement to 417 at discharge. Lactic 3.8. Urinalysis with 4+ glucose and trace protein no UTI. Acetone negative. Patient provided with symptomatic treatment emergency department, with improvement. Patient tolerating oral intake. Patient will be discharged stable condition advised follow-up with PCP. Cherellefran prescribed. Patient verbally discussed with standard care plan. Case discussed with ED attending of Dr. Huynh. Undiagnosed new problem with uncertain prognosis? @ -No Drug Therapy requiring intensive monitoring for toxicity (Heparin, Nitro, Insulin, Cardizem)? @ -No Were any procedures done? @ -No Diagnosis/symptom? @ -Hyperglycemia/nausea and vomiting Acute, or Chronic, or Acute on Chronic? @ -Acute/acute Uncomplicated (without systemic symptoms) or Complicated (systemic symptoms)? @ -Uncomplicated Side effects of treatment? @ -No Exacerbation, Progression, or Severe Exacerbation? @ -No Poses a threat to life or bodily function? How? (Chest pain, [place], [place], pneumonia, PE, COPD, DKA, ARF, appy, cholecystitis, CVA, Diverticulitis, Homicidal, Suicidal, threat to staff... and all critical care pts) @ -No - Lab Data Result diagrams: 11/04/24 19:39 11/04/24 19:39 Lab Results 11/04/24 11/04/24 11/04/24 Range/Units 19:30 19:39 19:39 WBC 8.12 (4.50-10.00) 10*3/uL RBC 4.55 (4.10-5.20) 10*6/uL Hgb 13.1 (12.0-15.0) g/dL Hct 37.5 (37.2-46.3) % MCV 82.4 (80.0-97.0) fL MCH 28.8 (27.0-32.0) pg MCHC 34.9 (32.0-37.0) g/dL Plt Count 427 (140-440) 10*3/uL MPV 9.0 L (9.5-12.2) fL Immature Gran % (Auto) 0.4 % Neutrophils % 55.6 % Lymphocytes % 34.6 % Monocytes % 6.5 % Eosinophils % 2.3 % Basophils % 0.6 % Immature Gran # 0.03 (0.00-0.04) 10*3/uL Neutrophils # 4.51 (1.80-7.70) 10*3/uL Lymphocytes # 2.81 (0.90-5.00) 10*3/uL Monocytes # 0.53 (0.20-1.00) 10*3/uL Eosinophils # 0.19 (0.04-0.35) 10*3/uL Basophils # 0.05 (0.00-0.10) 10*3/uL Sodium 130 L (137-145) mmol/L Potassium 4.8 (3.5-5.1) mmol/L Chloride 96 L (98-107) mmol/L Carbon Dioxide 21 L (22-30) mmol/L Anion Gap 13 mmol/L BUN 13 (7-17) mg/dL Creatinine 0.75 (0.52-1.04) mg/dL Est GFR (CKD-EPI)AfAm >90 (>60 ml/min/1.73 sqM) Est GFR (CKD-EPI)NonAf >90 (>60 ml/min/1.73 sqM) Glucose 577 H* (74-99) mg/dL POC Glucose (mg/dL) (70-110) mg/dL POC Glu Build Automation Engineer ID Lactic Ac Sepsis Rflx Plasma Lactic Acid Travon (0.7-2.0) mmol/L Calcium 8.7 (8.4-10.2) mg/dL Total Bilirubin 0.5 (0.2-1.3) mg/dL AST 22 (14-36) U/L ALT 19 (4-34) U/L Alkaline Phosphatase 127 H (38-126) U/L Total Protein 6.3 (6.3-8.2) g/dL Albumin 3.6 (3.5-5.0) g/dL Lipase 157 (23-300) U/L Urine Color Colorless Urine Appearance Clear (Clear) Urine pH 5.5 (5.0-8.0) Ur Specific [place] 1.023 (1.001-1.035) Urine Protein Trace H (Negative) Urine Glucose (UA) 4+ H (Negative) Urine Ketones Negative (Negative) Urine Blood Negative (Negative) Urine Nitrite Negative (Negative) Urine Bilirubin Negative (Negative) Urine Urobilinogen <2.0 (<2.0) mg/dL Ur Leukocyte Esterase Trace H (Negative) Urine RBC 1 (0-5) /hpf Urine WBC 1 (0-5) /hpf Ur Squamous Epith Cells 6 H (0-4) /hpf Acetone, Qual Negative (Negative) 11/04/24 11/04/24 11/04/24 Range/Units 19:39 20:06 20:08 WBC (4.50-10.00) 10*3/uL RBC (4.10-5.20) 10*6/uL Hgb (12.0-15.0) g/dL Hct (37.2-46.3) % MCV (80.0-97.0) fL MCH (27.0-32.0) pg MCHC (32.0-37.0) g/dL Plt Count (140-440) 10*3/uL MPV (9.5-12.2) fL Immature Gran % (Auto) % Neutrophils % % Lymphocytes % % Monocytes % % Eosinophils % % Basophils % % Immature Gran # (0.00-0.04) 10*3/uL Neutrophils # (1.80-7.70) 10*3/uL Lymphocytes # (0.90-5.00) 10*3/uL Monocytes # (0.20-1.00) 10*3/uL Eosinophils # (0.04-0.35) 10*3/uL Basophils # (0.00-0.10) 10*3/uL Sodium (137-145) mmol/L Potassium (3.5-5.1) mmol/L Chloride (98-107) mmol/L Carbon Dioxide (22-30) mmol/L Anion Gap mmol/L BUN (7-17) mg/dL Creatinine (0.52-1.04) mg/dL Est GFR (CKD-EPI)AfAm (>60 ml/min/1.73 sqM) Est GFR (CKD-EPI)NonAf (>60 ml/min/1.73 sqM) Glucose (74-99) mg/dL POC Glucose (mg/dL) 546 H* 520 H* (70-110) mg/dL POC Glu Build Automation Engineer ID Tigre Rivera Lactic Ac Sepsis Rflx Plasma Lactic Acid Travon 3.8 H* (0.7-2.0) mmol/L Calcium (8.4-10.2) mg/dL Total Bilirubin (0.2-1.3) mg/dL AST (14-36) U/L ALT (4-34) U/L Alkaline Phosphatase (38-126) U/L Total Protein (6.3-8.2) g/dL Albumin (3.5-5.0) g/dL Lipase (23-300) U/L Urine Color Urine Appearance (Clear) Urine pH (5.0-8.0) Ur Specific [place] (1.001-1.035) Urine Protein (Negative) Urine Glucose (UA) (Negative) Urine Ketones (Negative) Urine Blood (Negative) Urine Nitrite (Negative) Urine Bilirubin (Negative) Urine Urobilinogen (<2.0) mg/dL Ur Leukocyte Esterase (Negative) Urine RBC (0-5) /hpf Urine WBC (0-5) /hpf Ur Squamous Epith Cells (0-4) /hpf Acetone, Qual (Negative) 11/04/24 11/04/24 Range/Units 20:12 21:14 WBC (4.50-10.00) 10*3/uL RBC (4.10-5.20) 10*6/uL Hgb (12.0-15.0) g/dL Hct (37.2-46.3) % MCV (80.0-97.0) fL MCH (27.0-32.0) pg MCHC (32.0-37.0) g/dL Plt Count (140-440) 10*3/uL MPV (9.5-12.2) fL Immature Gran % (Auto) % Neutrophils % % Lymphocytes % % Monocytes % % Eosinophils % % Basophils % % Immature Gran # (0.00-0.04) 10*3/uL Neutrophils # (1.80-7.70) 10*3/uL Lymphocytes # (0.90-5.00) 10*3/uL Monocytes # (0.20-1.00) 10*3/uL Eosinophils # (0.04-0.35) 10*3/uL Basophils # (0.00-0.10) 10*3/uL Sodium (137-145) mmol/L Potassium (3.5-5.1) mmol/L Chloride (98-107) mmol/L Carbon Dioxide (22-30) mmol/L Anion Gap mmol/L BUN (7-17) mg/dL Creatinine (0.52-1.04) mg/dL Est GFR (CKD-EPI)AfAm (>60 ml/min/1.73 sqM) Est GFR (CKD-EPI)NonAf (>60 ml/min/1.73 sqM) Glucose (74-99) mg/dL POC Glucose (mg/dL) 417 H (70-110) mg/dL POC Glu Build Automation Engineer ID Tigre Rivera Lactic Ac Sepsis Rflx Y Plasma Lactic Acid Travon (0.7-2.0) mmol/L Calcium (8.4-10.2) mg/dL Total Bilirubin (0.2-1.3) mg/dL AST (14-36) U/L ALT (4-34) U/L Alkaline Phosphatase (38-126) U/L Total Protein (6.3-8.2) g/dL Albumin (3.5-5.0) g/dL Lipase (23-300) U/L Urine Color Urine Appearance (Clear) Urine pH (5.0-8.0) Ur Specific [place] (1.001-1.035) Urine Protein (Negative) Urine Glucose (UA) (Negative) Urine Ketones (Negative) Urine Blood (Negative) Urine Nitrite (Negative) Urine Bilirubin (Negative) Urine Urobilinogen (<2.0) mg/dL Ur Leukocyte Esterase (Negative) Urine RBC (0-5) /hpf Urine WBC (0-5) /hpf Ur Squamous Epith Cells (0-4) /hpf Acetone, Qual (Negative) - EKG Data -: EKG Interpreted by Me EKG Comments: EKG taken at 19: 39 showing a sinus rhythm. No ST segment elevations or depressions. No T wave versions. Ventricular rate 65, MD interval 162, QRS duration 88, QT/QTc 393/404. Disposition Clinical Impression: Nausea & vomiting, Hyperglycemia Disposition: HOME SELF-CARE Condition: Stable Instructions (If sedation given, give patient instructions): Acute Nausea and Vomiting (ED) Additional Instructions: Follow-up with PCP. Continue insulin as prescribed. Prescriptions: Ondansetron Odt [Zofran Odt] 4 mg PO Q8HR PRN #10 tab PRN Reason: Nausea Is patient prescribed a controlled substance at d/c from ED?: No Referrals: None,Stated [Primary Care Provider] - 1-2 days Forms: Area PCPs Time of Disposition: 21:03
[2024-11-04] MEDS: SODIUM CHLORIDE 0.9% 1,000 ML IV STA (19:48)
[2024-11-04] MEDS: ONDANSETRON 4 MG/2 ML VIAL IVP STA (19:50)
[2024-11-04] MEDS: HYDROmorphone 1 MG/ML 1 ML SYRINGE IVP STA (19:52)
[2024-11-04 19:54] LABS: Basophils # (A) 0.05 10*3/uL (0.00-0.10); Basophils % (A) 0.6 %; Eosinophils # (A) 0.19 10*3/uL (0.04-0.35); Eosinophils % (A) 2.3 %; HCT 37.5 % (37.2-46.3); HGB 13.1 g/dL (12.0-15.0); Lymphocytes # (A) 2.81 10*3/uL (0.90-5.00); Lymphocytes % (A) 34.6 %; MCH 28.8 pg (27.0-32.0); MCHC 34.9 g/dL (32.0-37.0); MCV 82.4 fL (80.0-97.0); Monocytes # (A) 0.53 10*3/uL (0.20-1.00); Monocytes % (A) 6.5 %; Neutrophils # (A) 4.51 10*3/uL (1.80-7.70); Neutrophils % (A) 55.6 %; Platelet Count 427 10*3/uL (140-440); RBC 4.55 10*6/uL (4.10-5.20); RDW 15.3 % (11.5-14.5); WBC 8.12 10*3/uL (4.50-10.00)
[2024-11-04] MEDS: FAMOTIDINE 20 MG/2 ML VIAL IV STA (19:54)
[2024-11-04 20:07] LABS: Glucose,Whole Blood 546 mg/dL (70-110)
[2024-11-04 20:09] LABS: Glucose,Whole Blood 520 mg/dL (70-110)
[2024-11-04 20:13] LABS: Bilirubin,Urine Negative (Negative); Blood,Urine Negative (Negative); Color,Urine Colorless; Glucose,Urine (UA) 4+ (Negative); Ketones,Urine Negative (Negative); Leukocyte Esterase,Urine Trace (Negative); Nitrite,Urine Negative (Negative); PH, Urine 5.5 (5.0-8.0); Protein,Urine Trace (Negative); RBC,Urine 1 /hpf (0-5); Specific Gravity,Urine 1.023 (1.001-1.035); Squamous Epithelial Cell,Urine 6 /hpf (0-4); Urobilinogen,Urine <2.0 mg/dL (<2.0); WBC,Urine 1 /hpf (0-5)
[2024-11-04 20:18] LABS: ALT 19 U/L (4-34); AST 22 U/L (14-36); African American GFR (CKD) >90 (>60 ml/min/1.73 sqM); Albumin 3.6 g/dL (3.5-5.0); Alkaline Phosphatase 127 U/L (38-126); Anion Gap 13 mmol/L; Blood Urea Nitrogen 13 mg/dL (7-17); Calcium 8.7 mg/dL (8.4-10.2); Carbon Dioxide 21 mmol/L (22-30); Chloride 96 mmol/L (98-107); Lipase 157 U/L (23-300); Non-African American GFR(CKD) >90 (>60 ml/min/1.73 sqM); Potassium 4.8 mmol/L (3.5-5.1); Sodium 130 mmol/L (137-145); Total Protein 6.3 g/dL (6.3-8.2)
[2024-11-04 20:20] LABS: Glucose 577 mg/dL (74-99)
[2024-11-04 21:16] LABS: Glucose,Whole Blood 417 mg/dL (70-110)
[2024-11-04] MEDS: INSULIN LISPRO (HumaLOG) 100 UNIT/ML 10 mL VL SQ ONE (21:20)
[2024-11-04 22:44] VITALS: BP 134/84; PULSE 60; RESP 17; TEMP 98.5
== END 2024-11-04 22:44 | disposition home or self-care (01) ==
LOC: EC 19:05
CPT/HCPCS: 36415; 80053; 81001; 82009; 83605; 83690; 85025; 93005; 96361; 96374; 96375; 99284

== ENCOUNTER 2024-11-06 02:48 | Emergency (ER) | payer MEDICARE, OTHER ==
--- NOTE | 2024-11-06 02:52 | ED ---
General Adult HPI - General Stated complaint: Chest Pain Time Seen by Provider: 11/06/24 02:50 Source: patient, RN notes reviewed, old records reviewed Limitations: no limitations - History of Present Illness Initial comments: 54-year-old female presenting for evaluation of diarrhea. Patient has had several episodes of diarrhea over the past 2 days. Patient denies abdominal pain. Denies measured fever. Paramedics did report that the blood sugar was elevated. Patient states she has been compliant with her medications. - Related Data Home Medications Medication Instructions Recorded Confirmed Atorvastatin [Lipitor] 80 mg PO HS 06/25/19 10/16/24 Insulin Aspart [NovoLOG Flexpen] 20 units SQ AC-TID 09/13/24 10/16/24 Insulin Glargine,Hum.rec.anlog 30 unit SQ HS 09/13/24 10/16/24 [Basaglar Kwikpen U-100] Amoxic-Pot Clav 875-125Mg 1 tab PO DIRECTED 10/16/24 10/16/24 [Augmentin 875-125] Previous Rx's Medication Instructions Recorded Famotidine [Pepcid] 20 mg PO DAILY #20 tablet 04/18/24 Aspirin 81 mg PO DAILY #30 tab 09/16/24 Magnesium Oxide [Mag-Ox] 400 mg PO DAILY 3 Days #3 tablet 10/04/24 Clopidogrel [Plavix] 75 mg PO DAILY #30 tablet 10/18/24 amLODIPine [Norvasc] 10 mg PO DAILY #30 tab 10/18/24 Losartan [Cozaar] 25 mg PO DAILY #30 tab 11/01/24 Metoprolol Tartrate [Lopressor] 12.5 mg PO DAILY #30 tab 11/01/24 Ondansetron Odt [Zofran Odt] 4 mg PO Q8HR PRN #10 tab 11/04/24 Allergies Allergy/AdvReac Type Severity Reaction Status Date / Time levofloxacin [From Levaquin] Allergy Rash/Hives Verified 11/04/24 19:10 Review of Systems ROS Statement: Those systems with pertinent positive or pertinent negative responses have been documented in the HPI. ROS Other: All systems not noted in ROS Statement are negative. Past Medical History Past Medical History: Diabetes Mellitus, GERD/Reflux, Hyperlipidemia, Hypertension, Syncope Additional Past Medical History / Comment(s): Pt recently admitted to [facility] on 07/21/21 with uncontrolled IDDM and hyperkalemia. Other hx: Recurrent pancreatitis, hypertriglyceridemia, elevated lipase, IDDM type II, UTI, chronic low back pain, bulging discs, dental abscesses in past. History of Any Multi-Drug Resistant Organisms: MRSA Date of last positivie culture/infection: 03/01/23 MDRO Source:: Abdomen Past Surgical History: Tubal Ligation Additional Past Surgical History / Comment(s): Age 7 had VSD repair, tumor removal 03/2023 Past Anesthesia/Blood Transfusion Reactions: No Reported Reaction Past Psychological History: No Psychological Hx Reported Smoking Status: Former smoker, Second hand smoke exposure, Vaper Past Alcohol Use History: None Reported Past Drug Use History: None Reported - Past Family History Mother Family Medical History: No Reported History Additional Family Medical History / Comment(s): Mother was healthy. She is , pt cannot recall cause of . Father Family Medical History: Pneumonia Additional Family Medical History / Comment(s): Father at the age of 67yrs from pneumonia General Exam General appearance: alert, in no apparent distress Head exam: Present: atraumatic, normocephalic Eye exam: Present: normal appearance, PERRL ENT exam: Present: normal exam Neck exam: Present: normal inspection. Absent: tenderness, meningismus Respiratory exam: Present: normal lung sounds bilaterally. Absent: respiratory distress, wheezes Cardiovascular Exam: Present: regular rate, normal rhythm GI/Abdominal exam: Present: soft. Absent: distended, tenderness, guarding Extremities exam: Present: normal inspection, normal capillary refill Neurological exam: Present: alert, oriented X3, CN II-XII intact. Absent: normal gait, motor sensory deficit Psychiatric exam: Present: normal affect, normal mood Skin exam: Present: warm, dry, intact Course Vital Signs 11/06/24 02:50 Pulse Rate 63 Respiratory 19 Rate Blood Pressure 173/86 O2 Sat by Pulse 98 Oximetry Medical Decision Making - Medical Decision Making Was pt. sent in by a medical professional or institution (ROSALIE Flaherty, [employer] PAINTER, urgent care, hospital, or usp...) When possible be specific @ -No Did you speak to anyone other than the patient for history (EMS, parent, family, police, friend...)? What history was obtained from this source @ -No Did you review nursing and triage notes (agree or disagree)? Why? @ -I reviewed and agree with nursing and triage notes Were old charts reviewed (outside hosp., previous admission, EMS record, old EKG, old radiological studies, urgent care reports/EKG's, usp records)? Report findings @ -No old charts were reviewed Differential Diagnosis (chest pain, altered mental status, abdominal pain women, abdominal pain men, vaginal bleeding, weakness, fever, dyspnea, syncope, headache, dizziness, GI bleed, back pain, seizure, CVA, palpatations, mental health, musculoskeletal)? @ -Not applicable EKG interpreted by me (3pts min.). @ -As above X-rays interpreted by me (1pt min.). @ -None done CT interpreted by me (1pt min.). @ -None done U/S interpreted by me (1pt. min.). @ -None done What testing was considered but not performed or refused? (CT, X-rays, U/S, labs)? Why? @ -None What meds were considered but not given or refused? Why? @ -None Did you discuss the management of the patient with other professionals (professionals i.e. , PA, [employer] PAINTER, lab, RT, psych nurse, social welfare research worker, contact printer dry film, teacher, special officer automat, complex case manager)? Give summary @ -No Was smoking cessation discussed for >3mins.? @ -No Was critical care preformed (if so, how long)? @ -No Were there social determinants of health that impacted care today? How? (Homelessness, low income, unemployed, alcoholism, drug addiction, transportation, low edu. Level, literacy, decrease access to med. care, usp, rehab)? @ -No Was there de-escalation of care discussed even if they declined (Discuss DNR or withdrawal of care, Hospice)? DNR status @ -No What co-morbidities impacted this encounter? (DM, HTN, Smoking, COPD, CAD, Cancer, CVA, ARF, Chemo, Hep., AIDS, mental health diagnosis, sleep apnea, morbid obesity)? @ -None Was patient admitted / discharged? Hospital course, mention meds given and route, prescriptions, significant lab abnormalities, going to OR and other pertinent info. @ -54-year-old female presenting with chief complaint of diarrhea. Patient has had several episodes. No abdominal pain. No fever. Patient has stable vitals. Blood sugar was elevated by paramedics. Patient will continue to maintain oral hydration with water. She is given antidiarrheal agent in the emergency departm ent and should follow-up with her primary care provider. Return parameters discussed. Undiagnosed new problem with uncertain prognosis? @ -No Drug Therapy requiring intensive monitoring for toxicity (Heparin, Nitro, Insulin, Cardizem)? @ -No Were any procedures done? @ -No Diagnosis/symptom? @ -Diarrhea, hyperglycemia Acute, or Chronic, or Acute on Chronic? @ -Acute on chronic Uncomplicated (without systemic symptoms) or Complicated (systemic symptoms)? @ -Default Side effects of treatment? @ -No Exacerbation, Progression, or Severe Exacerbation? @ -No Poses a threat to life or bodily function? How? (Chest pain, [place], [place], pneumonia, PE, COPD, DKA, ARF, appy, cholecystitis, CVA, Diverticulitis, Homicidal, Suicidal, threat to staff... and all critical care pts) @ -No Disposition Clinical Impression: Hyperglycemia, Diarrhea Disposition: HOME SELF-CARE Condition: Fair Instructions (If sedation given, give patient instructions): Acute Diarrhea (ED), Diabetic Hyperglycemia (ED) Additional Instructions: Please follow-up with your primary care provider regarding your ongoing elevated blood sugar. Please only drink water. Take medications as prescribed. Is patient prescribed a controlled substance at d/c from ED?: No Referrals: None,Stated [Primary Care Provider] - 1-2 days Time of Disposition: 02:56
[2024-11-06 02:56] VITALS: BP 173/86; PULSE 63; RESP 19
[2024-11-06] MEDS: LOPERAMIDE 2 MG CAP PO STA (03:03)
[2024-11-06 03:06] VITALS: TEMP 98.4
== END 2024-11-06 03:13 | disposition home or self-care (01) ==
LOC: EC 02:48
DX: E11.65 Type 2 diabetes mellitus with hyperglycemia (principal); R19.7 Diarrhea, unspecified; F17.290 Nicotine dependence, other tobacco product, uncomplicated; Z88.1 Allergy status to other antibiotic agents
CPT/HCPCS: 99285